=== PATIENT | female | born 1940 | race Caucasian/White ===

== ENCOUNTER 2023-02-01 11:26 | Outpatient (OUT) | payer MEDICARE, OTHER, SELFPAY ==
[2023-02-01 12:45] LABS: Anion Gap 13.8; Calcium 9.2 mg/dL (8.5-10.1); Carbon Dioxide 31.2 mmol/L (21.0-32.0); Chloride 103 mmol/L (98-107); Digoxin 0.8 ng/mL (0.9-2.0); Estimated GFR (African America 36 (>=60); Estimated GFR (Non-African Ame 29 (>=60); Sodium 144 mmol/L (136-145)
[2023-02-01 15:10] LABS: Glucose 35 mg/dL (74-106)
== END 2023-02-01 11:27 | disposition home or self-care (01) ==
LOC: LAB 11:30
PROVIDERS: PCP Internal Medicine; Visit Provider Internal Medicine Interventional Cardiology
DX: I50.32 Chronic diastolic (congestive) heart failure (principal)
CPT/HCPCS: 36415; 80048; 80162; 83880

== ENCOUNTER 2023-03-02 12:00 | Emergency (ER) | payer MEDICARE, OTHER, SELFPAY ==
[2023-03-02 12:04] VITALS: BP 125/92; PULSE 82; RESP 18; TEMP 36.3; O2SAT 98; BMI 30.7
--- NOTE | 2023-03-02 12:10 | XR_ITS ---
[facility] [id number] Patient Name: KATHY VILLEGAS MRN: [id number] date: 1940 Sex: F Assigned Patient Location: ER Current Patient Location: ER Accession/Order Number: [id number] Exam Date: 03/02/2023 12:15 Report Date: 03/02/2023 13:06 At the request of: GONZÁLEZ EVANS Procedure: XR lumbar spine 2-3V EXAMINATION: XR thoracic spine 2V, XR lumbar spine 2-3V HISTORY: fell onto hutch COMPARISON: No relevant comparison available. FINDINGS: BONES: Normal alignment of the thoracic and lumbar vertebral bodies with no spondylolisthesis. Anterior wedge compression fractures of multiple thoracic vertebral bodies, 10-20%, age indeterminate. Moderate degenerative spondylosis. Moderate to severe facet osteoarthropathy DISC SPACES: Normal. No significant disc height narrowing, subluxation, or endplate abnormality. PARASPINOUS: Negative. No paraspinous abnormality is seen. OTHER: Extensive atherosclerosis XR/XR lumbar spine 2-3V IMPRESSION: Moderate diffuse degenerative changes Multilevel mild thoracic anterior wedge compression fractures, age indeterminate Electronically authenticated by: MEENA HAWKINS Date: 03/02/2023 13:06
--- NOTE | 2023-03-02 12:10 | XR_ITS ---
[facility] [id number] Patient Name: KATHY VILLEGAS MRN: [id number] date: 1940 Sex: F Assigned Patient Location: ER Current Patient Location: ER Accession/Order Number: [id number] Exam Date: 03/02/2023 12:15 Report Date: 03/02/2023 13:06 At the request of: GONZÁLEZ EVANS Procedure: XR thoracic spine 2V EXAMINATION: XR thoracic spine 2V, XR lumbar spine 2-3V HISTORY: fell onto hutch COMPARISON: No relevant comparison available. FINDINGS: BONES: Normal alignment of the thoracic and lumbar vertebral bodies with no spondylolisthesis. Anterior wedge compression fractures of multiple thoracic vertebral bodies, 10-20%, age indeterminate. Moderate degenerative spondylosis. Moderate to severe facet osteoarthropathy DISC SPACES: Normal. No significant disc height narrowing, subluxation, or endplate abnormality. PARASPINOUS: Negative. No paraspinous abnormality is seen. OTHER: Extensive atherosclerosis XR/XR thoracic spine 2V IMPRESSION: Moderate diffuse degenerative changes Multilevel mild thoracic anterior wedge compression fractures, age indeterminate Electronically authenticated by: MEENA HAWKINS Date: 03/02/2023 13:06
--- NOTE | 2023-03-02 14:13 | ED.GENADUL1 ---
Documented by User: ZOEY Stevenson 03/02/23 17:00 HPI - General Adult General Chief complaint: Fall Stated complaint: FELL LAST NIGHT/IN PAIN Time Seen by Provider: 03/02/23 13:35 Source: patient Mode of arrival: Wheelchair Limitations: no limitations History of Present Illness HPI narrative: patient is a 83-year-old female presents to the Emergency Room with concerns of back pain. Patient states she was in her bedroom last night and fell back striking her Hutch, then slipping down to the floor. She denies hitting her head or neck. Denies loss of consciousness. lives with her son, who is also currently hospitalized of heart tones. Patient denies any anterior chest pain. Pain is worse with movement walking and for flexion. She denies any radicular symptoms in her lower legs or abdomen. Patient denies any dysuria. States she felt fine prior to her injury. She reports a remote history of back fractures in the 1970s. She denies any bowel or bladder continence or saddle paresthesias. Patient appears moderately uncomfortable in the room. Radiation: Reports back Related Data Allergies Allergy/AdvReac Type Severity Reaction Status Date / Time codeine Allergy Intermediate Verified 03/02/23 12:08 Penicillins Allergy Intermediate Verified 03/02/23 12:08 Review of Systems ROS Constitutional Denies: fever or chills Ears, nose, mouth, and throat Denies: throat pain or neck pain Cardiovascular Denies: chest pain or palpitations Respiratory Denies: shortness of breath or cough Gastrointestinal Denies: abdominal pain or nausea Genitourinary Denies: painful urination Musculoskeletal Reports: back pain; Denies: extremity pain or muscle cramps Neurological Denies: headache Psychiatric Denies: anxiety or mood swings Hematologic/Lymphatic Denies: easy bruising Allergic/Immunologic Denies: hives [facility] Medical History (Updated 03/02/23 @ 16:59 by ZOEY Stevenson) Exam Narrative Exam Narrative: Vital Signs reviewed and nurse's notes reviewed. The patient is not hypoxic. General: Alert,patient appears uncomfortable worse with moving and position change in the room. Skin: warm, intact, no pallor noted, no rash, no external evidence of trauma with inspection of skin, no zoster-like rash. Head: Normocephalic, atraumatic Eye: Normal conjunctiva, EOMI Cardiac: irregularly irregular, history of atrial fibrillation Respiratory: No acute distress, chest wall is nontender. Abdomen: Normal bowel sounds, soft, nontender, no masses detected. No rebound, guarding, or rigidity noted. No midline pulsatile mass.no splenic or hepatic tenderness Back: inspection of the back shows no obvious deformity, no swelling, no ecchymosis, contusion, abrasion, swelling, erythema, fluctuance or induration. slight scoliotic curvature and kyphosis appreciated. No step offs or crepitus noted. No CVA tenderness noted bilaterally.positive tenderness mid thoracic and lower lumbar back, pain to sacrum and coccyx also noted along SI joint. There is no pain with range of motion of the bilateral hips. Straight leg raise. Tenderness noted to thoracic and lumbar spine. . Straight leg raise on left is negative. Straight leg raise on right is negative. Musculoskeletal: No deformity noted to bilateral lower extremities. no cyanosis or mottling noted. normal pulses at DP and PT 2+ bilaterally and symmetrically. Normal 5/5 strength at ankles with dorsiflexion and plantar flexion. Patient is able to ambulate. Normal sensation noted to the bilateral lower extremities. Neurological: alert and oriented x4, normal sensory and motor observed. DTR 2+ at patellar and achilles bilaterally. Psychiatric: Cooperative Constitutional Vital Signs, click to edit/add: Last Vital Signs Temp 97.4 F L 03/02/23 12:04 Pulse 82 03/02/23 12:04 Resp 18 03/02/23 12:04 BP 125/92 H 03/02/23 12:04 Pulse Ox 98 03/02/23 12:04 O2 Del Method Room Air 03/02/23 12:04 Course Vital Signs Vital signs: Vital Signs Temperature 97.4 F L 03/02/23 12:04 Pulse Rate 82 03/02/23 12:04 Respiratory Rate 18 03/02/23 12:04 Blood Pressure 125/92 H 03/02/23 12:04 Pulse Oximetry 98 03/02/23 12:04 Oxygen Delivery Method Room Air 03/02/23 12:04 Temperature 97.4 F L 03/02/23 12:04 Pulse Rate 82 03/02/23 12:04 Respiratory Rate 18 03/02/23 12:04 Blood Pressure 125/92 H 03/02/23 12:04 Pulse Oximetry 98 03/02/23 12:04 Oxygen Delivery Method Room Air 03/02/23 12:04 Medical Decision Making MDM Narrative Medical decision making narrative: patient had x-rays performed of the thoracic spine and lumbar spine from the waiting room. Unable to differentiate acute versus chronic rest Fractures. Given the patient's severity of pain recommend CT of the thoracic spine and CT of the abdomen and pelvis. Patient believe she did land the ground for some time after her fall and baseline labs will be checked. Patient medicated with Percocet for pain along with IM Norflex and Toradol. She has not had any signs or symptoms of a closed head injury and there is no external evidence of trauma with patient denying headd injury with episode. Notable spasms in the lower spine lumbar region that affect her range of motion secondary to pain, patient's daughter present at bedside. patient CT of thoracic spine noted for mass and lung, CT chest without contrast ordered given patient's kidney function. We discussed CT of the abdomen and pelvis. Patient has concerns for an L1 compression fracture. After medication patient much improved and resting in bed. We discussed a prescription of Bloomingrose pending follow-up with her family doctor/orthopedics. Recommend no lifting pushing , stooping or bending. We discussed her fracture may be acute or chronic. We discussed need to take fiber or MiraLAX with her narcotic and to take least effective dose for pain. Patient verbally agreeable and given sixteen tablets of Bloomingrose on written prescription paper. Patient daughter at bedside verbally agreeable to discharge plan and follow-up as discussed. The patient is to followup with primary care physician/ ortho in next 2-3 days or to return to the emergency department should any of the signs or symptoms worsen or new symptoms develop. Patient had questions answered. The patient agrees with the following Diagnosis and Treatment plan and the patient will be discharged home. Lab Data Labs: Lab Results 03/02/23 Range/Units 14:25 WBC 8.5 (4.0-11.0) 10^3/uL RBC 4.13 L (4.20-5.40) 10^6/uL Hgb 12.2 (12.0-16.0) g/dL Hct 39.4 (36.0-48.0) % MCV 95.4 (81.0-99.0) fL MCH 29.5 (26.7-34.0) pg MCHC 31.0 (29.9-35.2) g/dL RDW 15.5 H (11.0-15.0) % Plt Count 236 (150-450) 10^3/uL MPV 9.7 (9.5-13.5) fL Neut % (Auto) 80.5 H (43.0-75.0) % Lymph % (Auto) 7.6 L (20.5-60.0) % [place] % (Auto) 9.1 (1.7-12.0) % Eos % (Auto) 2.1 (0.9-7.0) % Baso % (Auto) 0.5 (0.2-2.0) % Neut # (Auto) 6.9 H (1.4-6.5) 10^3/uL Lymph # (Auto) 0.7 L (1.2-3.8) 10^3/uL [place] # (Auto) 0.8 (0.3-0.8) 10^3/uL Eos # (Auto) 0.2 (0.0-0.7) 10^3/uL Baso # (Auto) 0.0 (0.0-0.1) 10^3/uL Abs Immat Gran (auto) 0.02 (0.00-0.03) 10^3/uL Imm/Tot Granulo (auto) 0.2 (0.0-0.5) % Sodium 135 L (136-145) mmol/L Potassium 3.8 (3.5-5.1) mmol/L Chloride 98 (98-107) mmol/L Carbon Dioxide 31.7 (21.0-32.0) mmol/L Anion Gap 9.1 BUN 39.0 H (7.0-18.0) mg/dL Creatinine 1.68 H (0.55-1.02) mg/dL Est GFR ( Amer) 35 L (>=60) Est GFR (Non-Af Amer) 29 L (>=60) BUN/Creatinine Ratio 23.2 Glucose 117 H (74-106) mg/dL Calcium 9.6 (8.5-10.1) mg/dL Myoglobin 132 H (9-82) ng/mL Troponin I High Sens 17.2 (4.0-51.3) pg/mL Imaging Data Chest x-ray: Radiologist's impression: Procedure: XR thoracic spine 2V EXAMINATION: XR thoracic spine 2V, XR lumbar spine 2-3V HISTORY: fell onto hutch COMPARISON: No relevant comparison available. FINDINGS: BONES: Normal alignment of the thoracic and lumbar vertebral bodies with no spondylolisthesis. Anterior wedge compression fractures of multiple thoracic vertebral bodies, 10-20%, age indeterminate. Moderate degenerative spondylosis. Moderate to severe facet osteoarthropathy DISC SPACES: Normal. No significant disc height narrowing, subluxation, or endplate abnormality. PARASPINOUS: Negative. No paraspinous abnormality is seen. OTHER: Extensive atherosclerosis IMPRESSION: Moderate diffuse degenerative changes Multilevel mild thoracic anterior wedge compression fractures, age indeterminate Electronically authenticated by: MEENA HAWKINS Date: 03/02/2023 13:06 Procedure: XR lumbar spine 2-3V EXAMINATION: XR thoracic spine 2V, XR lumbar spine 2-3V HISTORY: fell onto hutch COMPARISON: No relevant comparison available. FINDINGS: BONES: Normal alignment of the thoracic and lumbar vertebral bodies with no spondylolisthesis. Anterior wedge compression fractures of multiple thoracic vertebral bodies, 10-20%, age indeterminate. Moderate degenerative spondylosis. Moderate to severe facet osteoarthropathy DISC SPACES: Normal. No significant disc height narrowing, subluxation, or endplate abnormality. PARASPINOUS: Negative. No paraspinous abnormality is seen. OTHER: Extensive atherosclerosis IMPRESSION: Moderate diffuse degenerative changes Multilevel mild thoracic anterior wedge compression fractures, age indeterminate Electronically authenticated by: MEENA HAWKINS Date: 03/02/2023 13:06 Procedure: CT chest wo con EXAMINATION: CT abdomen pelvis wo con, CT chest wo con, CT thoracic spine wo con, 03/02/2023 2:56 PM EDT HISTORY: pain pelvis and lumbar spine COMPARISON: Relevant priors reviewed including CT of the chest 10/06/2022 TECHNIQUE: 1. CT of the chest without IV contrast. 2. CT abdomen pelvis without IV contrast 3. CT thoracic spine without IV contrast Dose reduction techniques were achieved by using automated exposure control and/or adjustment of mA and/or kV according to patient size and/or use of iterative reconstruction technique. FINDINGS: Noncontrasted nature of the exam limits evaluation of the vascular structures and solid organs. CHEST: Medical devices: Cardiac loop recorder within the left anterior chest wall. Thyroid: Diminutive. Grossly unchanged 1.3 cm hypoattenuating nodule in the left inferior gland. Vasculature: Similar dilatation of the main pulmonary artery measuring up to 4.1 cm in diameter. Aorta is of normal caliber, aortic atherosclerotic calcification Heart: Enlarged. Multivessel atherosclerotic calcification of the coronary arteries. Suspect artificial aortic valve. No pericardial effusion. Mediastinum: Normal. Airways: Central airways are patent. Lung parenchyma and pleura: Trace right pleural effusion, decreased since CT comparison 10/06/2022; similar associated pleural thickening. Right lower lobe subpleural masslike consolidation is not significant changed, potentially round atelectasis. Unchanged 2.4 x 1.4 cm area of subpleural nodularity in the left lower lobe. Similar background moderate emphysema. Lymph nodes: Several prominent mediastinal lymph nodes, the majority of which have slightly decreased in size since CT comparison 10/06/2022, example includes a 1.4 x 1.0 cm left lower paratracheal/precarinal node (image 31 series 3), previously 2.0 x 1.2 cm. Prominent 1.4 x 1.0 cm right upper paratracheal node (image 15 series 3) is unchanged. No new or increasing thoracic adenopathy. Chest wall: No acute findings. Musculoskeletal: Procedure change from median sternotomy. No acute findings. Dedicated CT of the thoracic spine shows normal spinal alignment without significant edgar or retrolisthesis. Thoracic vertebral body heights are maintained without fracture. Age-indeterminate fracture of the L1 superior endplate with minimal vertebral body height loss. Multilevel intervertebral disc height loss and degenerative endplate change. Posterior disc osteophyte complex at T7-T8 contributes continues to likely mild narrowing of the bony spinal canal at this level; no severe narrowing. ABDOMEN/PELVIS: Liver: Normal. Biliary tree: Smooth central intra and extra hepatic biliary prominence with tapering at ampulla likely relates to postcholecystectomy status and patient's age. Gallbladder: Cholecystectomy Spleen: Normal. Pancreas: Parenchymal atrophy. No abnormal ductal dilatation. Adrenal glands: Normal. Kidneys and ureters: Normal. Bladder: Grossly unremarkable for the degree of underdistention. Reproductive organs: Hysterectomy. No suspicious adnexal mass. Gastrointestinal tract: No abnormal bowel dilatation. Colonic diverticulosis without findings of acute diverticulitis. The appendix is not definitively visualized. No finding in the right lower quadrant to suggest acute appendicitis. Peritoneum/retroperitoneum: No free fluid or gas. Minimal wispy soft tissue and few benign calcifications in the right retroperitoneal fat, new since 2018, potentially relates to remote/since resolved retroperitoneal hematoma or collection. Vasculature: Advanced atherosclerosis without aneurysm. Lymph nodes: Normal. Abdominal wall: Procedure change. Musculoskeletal: Transitional lumbosacral anatomy with 6 nonrib-bearing lumbar-type vertebral bodies; for the sake of this dictation, the most superior nonrib-bearing vertebral body is labeled L1. Age-indeterminate compression deformity about the L1 superior endplate as above. Degenerative change of the spine. IMPRESSION: Noncontrasted CT examinations of the chest, abdomen and pelvis, and thoracic spine 1. Trace right pleural effusion, decreased since CT comparison 10/06/2022; similar associated nonspecific pleural thickening. 2. Unchanged masslike right lower lobe consolidation, and nonspecific 2.4 cm nodular opacity in the left lower lobe. Right lower lobe opacity potentially relates to round atelectasis; superimposed infectious/inflammatory change would be difficult to exclude. 3. No acute findings within the abdomen and pelvis within limitations of noncontrast technique. 4. Age indeterminate compression fracture of the L1 superior endplate with minimal vertebral body height loss. Transitional lumbosacral anatomy; for the sake of this dictation the most superior nonrib-bearing vertebral body is labeled L1. 5. Grossly similar dilatation of the main pulmonary artery suggesting elevated pulmonary arterial pressures. 6. Nonspecific prominent mediastinal lymph nodes, the majority of which have decreased in size since previous CT 10/06/2021, with few others appearing unchanged. Electronically authenticated by: BRIGHT HARDY Date: 03/02/2023 16:01 ECG Data Attestation: I personally reviewed and interpreted this ECG as follows: Interpretation: EKG noted for atrial fibrillation any [address] elevation. Mild flattening of T waves in V1 and V2. Discharge Plan Discharge Chief Complaint: Fall Clinical Impression: Acute thoracic back pain, Closed compression fracture of L1 vertebra, Lung mass Patient Disposition: Home, Self-Care Time of Disposition Decision: 16:57 Condition: Good Additional Instructions: no bending stooping or heavy lifting. Contact orthopedics Sunday for follow-up, recommend follow-up family doctor to discuss lung mass. Stand Alone Forms: Portal Instructions Referrals: JHONATAN LUCIA [Primary Care Provider] - 1 week Stalin Luna MD [Physician] - As soon as possible Discharge Date/Time: 03/02/23 17:13 Documented by User: Shala Nieves MD 03/02/23 17:45 HPI - General Adult General Chief complaint: Fall Stated complaint: FELL LAST NIGHT/IN PAIN Time Seen by Provider: 03/02/23 13:35 Related Data Allergies Allergy/AdvReac Type Severity Reaction Status Date / Time codeine Allergy Intermediate Verified 03/02/23 12:08 Penicillins Allergy Intermediate Verified 03/02/23 12:08 [facility] Medical History (Updated 03/02/23 @ 16:59 by ZOEY Stevenson) Exam Constitutional Vital Signs, click to edit/add: Last Vital Signs Temp 97.4 F L 03/02/23 12:04 Pulse 82 03/02/23 12:04 Resp 18 03/02/23 12:04 BP 125/92 H 03/02/23 12:04 Pulse Ox 98 03/02/23 12:04 O2 Del Method Room Air 03/02/23 12:04 Course Vital Signs Vital signs: Vital Signs Temperature 97.4 F L 03/02/23 12:04 Pulse Rate 82 03/02/23 12:04 Respiratory Rate 18 03/02/23 12:04 Blood Pressure 125/92 H 03/02/23 12:04 Pulse Oximetry 98 03/02/23 12:04 Oxygen Delivery Method Room Air 03/02/23 12:04 Temperature 97.4 F L 03/02/23 12:04 Pulse Rate 82 03/02/23 12:04 Respiratory Rate 18 03/02/23 12:04 Blood Pressure 125/92 H 03/02/23 12:04 Pulse Oximetry 98 03/02/23 12:04 Oxygen Delivery Method Room Air 03/02/23 12:04 Medical Decision Making MDM Narrative Medical decision making narrative: patient had x-rays performed of the thoracic spine and lumbar spine from the waiting room. Unable to differentiate acute versus chronic rest Fractures. Given the patient's severity of pain recommend CT of the thoracic spine and CT of the abdomen and pelvis. Patient believe she did land the ground for some time after her fall and baseline labs will be checked. Patient medicated with Percocet for pain along with IM Norflex and Toradol. She has not had any signs or symptoms of a closed head injury and there is no external evidence of trauma with patient denying head injury with episode. Notable spasms in the lower spine lumbar region that affect her range of motion secondary to pain, patient's daughter present at bedside. patient CT of thoracic spine noted for mass and lung, CT chest without contrast ordered given patient's kidney function. We discussed CT of the abdomen and pelvis. Patient has concerns for an L1 compression fracture. After medication patient much improved and resting in bed. We discussed a prescription of Bloomingrose pending follow-up with her family doctor/orthopedics. Recommend no lifting pushing , stooping or bending. We discussed her fracture may be acute or chronic. We discussed need to take fiber or MiraLAX with her narcotic and to take least effective dose for pain. Patient verbally agreeable and given sixteen tablets of Bloomingrose on written prescription paper. Patient daughter at bedside verbally agreeable to discharge plan and follow-up as discussed. The patient is to followup with primary care physician/ ortho in next 2-3 days or to return to the emergency department should any of the signs or symptoms worsen or new symptoms develop. Patient had questions answered. The patient agrees with the following Diagnosis and Treatment plan and the patient will be discharged home. Attending physician attestation I I have reviewed the mid-level documentation, agree with the documentation, medical decision making and treatment plan as outlined by the mid-level provider. Lab Data Labs: Lab Results 03/02/23 Range/Units 14:25 WBC 8.5 (4.0-11.0) 10^3/uL RBC 4.13 L (4.20-5.40) 10^6/uL Hgb 12.2 (12.0-16.0) g/dL Hct 39.4 (36.0-48.0) % MCV 95.4 (81.0-99.0) fL MCH 29.5 (26.7-34.0) pg MCHC 31.0 (29.9-35.2) g/dL RDW 15.5 H (11.0-15.0) % Plt Count 236 (150-450) 10^3/uL MPV 9.7 (9.5-13.5) fL Neut % (Auto) 80.5 H (43.0-75.0) % Lymph % (Auto) 7.6 L (20.5-60.0) % [place] % (Auto) 9.1 (1.7-12.0) % Eos % (Auto) 2.1 (0.9-7.0) % Baso % (Auto) 0.5 (0.2-2.0) % Neut # (Auto) 6.9 H (1.4-6.5) 10^3/uL Lymph # (Auto) 0.7 L (1.2-3.8) 10^3/uL [place] # (Auto) 0.8 (0.3-0.8) 10^3/uL Eos # (Auto) 0.2 (0.0-0.7) 10^3/uL Baso # (Auto) 0.0 (0.0-0.1) 10^3/uL Abs Immat Gran (auto) 0.02 (0.00-0.03) 10^3/uL Imm/Tot Granulo (auto) 0.2 (0.0-0.5) % Sodium 135 L (136-145) mmol/L Potassium 3.8 (3.5-5.1) mmol/L Chloride 98 (98-107) mmol/L Carbon Dioxide 31.7 (21.0-32.0) mmol/L Anion Gap 9.1 BUN 39.0 H (7.0-18.0) mg/dL Creatinine 1.68 H (0.55-1.02) mg/dL Est GFR ( Amer) 35 L (>=60) Est GFR (Non-Af Amer) 29 L (>=60) BUN/Creatinine Ratio 23.2 Glucose 117 H (74-106) mg/dL Calcium 9.6 (8.5-10.1) mg/dL Myoglobin 132 H (9-82) ng/mL Troponin I High Sens 17.2 (4.0-51.3) pg/mL Discharge Plan Discharge Chief Complaint: Fall Clinical Impression: Acute thoracic back pain, Closed compression fracture of L1 vertebra, Lung mass Patient Disposition: Home, Self-Care Time of Disposition Decision: 16:57 Condition: Good Additional Instructions: no bending stooping or heavy lifting. Contact orthopedics Sunday for follow-up, recommend follow-up family doctor to discuss lung mass. Stand Alone Forms: Portal Instructions Referrals: JHONATAN LUCIA [Primary Care Provider] - 1 week Stalin Luna MD [Physician] - As soon as possible Discharge Date/Time: 03/02/23 17:13
--- NOTE | 2023-03-02 14:15 | ECG_ITS ---
The [facility] Test Date: 2023-03-02 Pat Name: KATHY VILLEGAS Department: Room: - Gender: Female [employer]: : [phone] Requested By: JHONATAN LUCIA Order Number: [id number] Reading MD: MIKE HUGO Measurements Intervals [place] Rate: 94 P: -[id number] [place]: -35140 QRS: 72 QRSD: 100 T: 166 QT: 360 QTc: 412 Interpretive Statements [address]/[place] abnormality, possible Inferolateral ischemia or digitalis effect 9150 abnormal ECG No previous ECG available for comparison Electronically Signed On 03-04-2023 18:05:39 EDT by MIKE HUGO
[2023-03-02] MEDS: KETOROLAC TROMETHAMINE 60 MG/2 ML VIAL IM (14:18)
[2023-03-02] MEDS: ORPHENADRINE 60 MG/ 2 ML VIAL IM (14:19)
[2023-03-02 14:33] LABS: Basophils Percent Auto 0.5 % (0.2-2.0); Eosinophils Absolute Auto 0.2 10^3/uL (0.0-0.7); Eosinophils Percent Auto 2.1 % (0.9-7.0); Hematocrit 39.4 % (36.0-48.0); Hemoglobin 12.2 g/dL (12.0-16.0); Immature Granulocytes Abs Auto 0.02 10^3/uL (0.00-0.03); Immature Granulocytes Pct Auto 0.2 % (0.0-0.5); Lymphocytes Absolute Auto 0.7 10^3/uL (1.2-3.8); Lymphocytes Percent Auto 7.6 % (20.5-60.0); Mean Corpuscular Hemoglobin 29.5 pg (26.7-34.0); Mean Corpuscular Volume 95.4 fL (81.0-99.0); Mean Platelet Volume 9.7 fL (9.5-13.5); Monocytes Absolute Auto 0.8 10^3/uL (0.3-0.8); Monocytes Percent Auto 9.1 % (1.7-12.0); Neutrophils Absolute Auto 6.9 10^3/uL (1.4-6.5); Neutrophils Percent Auto 80.5 % (43.0-75.0); Platelet Count 236 10^3/uL (150-450); Red Blood Count 4.13 10^6/uL (4.20-5.40); Red Cell Distribution Width 15.5 % (11.0-15.0); White Blood Count 8.5 10^3/uL (4.0-11.0)
[2023-03-02 14:55] LABS: Anion Gap 9.1; BUN Creatinine Ratio 23.2; Calcium 9.6 mg/dL (8.5-10.1); Carbon Dioxide 31.7 mmol/L (21.0-32.0); Chloride 98 mmol/L (98-107); Estimated GFR (African America 35 (>=60); Estimated GFR (Non-African Ame 29 (>=60); Glucose 117 mg/dL (74-106); Myoglobin 132 ng/mL (9-82); Potassium 3.8 mmol/L (3.5-5.1); Sodium 135 mmol/L (136-145); Troponin I High Sensitivity 17.2 pg/mL (4.0-51.3)
[2023-03-02 14:58] LABS: Scan Results NEGATIVE
--- NOTE | 2023-03-02 15:07 | CT_ITS ---
[address] [address] Patient Name: KATHY VILLEGAS MRN: [id number] date: 1940 Sex: F Assigned Patient Location: ER Current Patient Location: ER Accession/Order Number: [id number] Exam Date: 03/02/2023 14:56 Report Date: 03/02/2023 16:01 At the request of: ISAI SAENZ Procedure: CT abdomen pelvis wo con EXAMINATION: CT abdomen pelvis wo con, CT chest wo con, CT thoracic spine wo con, 03/02/2023 2:56 PM EDT HISTORY: pain pelvis and lumbar spine COMPARISON: Relevant priors reviewed including CT of the chest 10/06/2022 TECHNIQUE: 1. CT of the chest without IV contrast. 2. CT abdomen pelvis without IV contrast 3. CT thoracic spine without IV contrast Dose reduction techniques were achieved by using automated exposure control and/or adjustment of mA and/or kV according to patient size and/or use of iterative reconstruction technique. FINDINGS: Noncontrasted nature of the exam limits evaluation of the vascular structures and solid organs. CHEST: Medical devices: Cardiac loop recorder within the left anterior chest wall. Thyroid: Diminutive. Grossly unchanged 1.3 cm hypoattenuating nodule in the left inferior gland. Vasculature: Similar dilatation of the main pulmonary artery measuring up to 4.1 cm in diameter. Aorta is of normal caliber, aortic atherosclerotic calcification Heart: Enlarged. Multivessel atherosclerotic calcification of the coronary arteries. Suspect artificial aortic valve. No pericardial effusion. Mediastinum: Normal. Airways: Central airways are patent. Lung parenchyma and pleura: Trace right pleural effusion, decreased since CT comparison 10/06/2022; similar associated pleural thickening. Right lower lobe subpleural masslike consolidation is not significant changed, potentially round atelectasis. Unchanged 2.4 x 1.4 cm area of subpleural nodularity in the left lower lobe. Similar background moderate emphysema. Lymph nodes: Several prominent mediastinal lymph nodes, the majority of which have slightly decreased in size since CT comparison 10/06/2022, example includes a 1.4 x 1.0 cm left lower paratracheal/precarinal node (image 31 series 3), previously 2.0 x 1.2 cm. Prominent 1.4 x 1.0 cm right upper paratracheal node (image 15 series 3) is unchanged. No new or increasing thoracic adenopathy. Chest wall: No acute findings. Musculoskeletal: Procedure change from median sternotomy. No acute findings. Dedicated CT of the thoracic spine shows normal spinal alignment without significant edgar or retrolisthesis. Thoracic vertebral body heights are maintained without fracture. Age-indeterminate fracture of the L1 superior endplate with minimal vertebral body height loss. Multilevel intervertebral disc height loss and degenerative endplate change. Posterior disc osteophyte complex at T7-T8 contributes continues to likely mild narrowing of the bony spinal canal at this level; no severe narrowing. ABDOMEN/PELVIS: Liver: Normal. Biliary tree: Smooth central intra and extra hepatic biliary prominence with tapering at ampulla likely relates to postcholecystectomy status and patient's age. Gallbladder: Cholecystectomy Spleen: Normal. Pancreas: Parenchymal atrophy. No abnormal ductal dilatation. Adrenal glands: Normal. Kidneys and ureters: Normal. Bladder: Grossly unremarkable for the degree of underdistention. Reproductive organs: Hysterectomy. No suspicious adnexal mass. Gastrointestinal tract: No abnormal bowel dilatation. Colonic diverticulosis without findings of acute diverticulitis. The appendix is not definitively visualized. No finding in the right lower quadrant to suggest acute appendicitis. Peritoneum/retroperitoneum: No free fluid or gas. Minimal wispy soft tissue and few benign calcifications in the right retroperitoneal fat, new since 2018, potentially relates to remote/since resolved retroperitoneal hematoma or collection. Vasculature: Advanced atherosclerosis without aneurysm. Lymph nodes: Normal. Abdominal wall: Procedure change. Musculoskeletal: Transitional lumbosacral anatomy with 6 nonrib-bearing lumbar-type vertebral bodies; for the sake of this dictation, the most superior nonrib-bearing vertebral body is labeled L1. Age-indeterminate compression deformity about the L1 superior endplate as above. Degenerative change of the spine. CT/CT abdomen pelvis wo con IMPRESSION: Noncontrasted CT examinations of the chest, abdomen and pelvis, and thoracic spine 1. Trace right pleural effusion, decreased since CT comparison 10/06/2022; similar associated nonspecific pleural thickening. 2. Unchanged masslike right lower lobe consolidation, and nonspecific 2.4 cm nodular opacity in the left lower lobe. Right lower lobe opacity potentially relates to round atelectasis; superimposed infectious/inflammatory change would be difficult to exclude. 3. No acute findings within the abdomen and pelvis within limitations of noncontrast technique. 4. Age indeterminate compression fracture of the L1 superior endplate with minimal vertebral body height loss. Transitional lumbosacral anatomy; for the sake of this dictation the most superior nonrib-bearing vertebral body is labeled L1. 5. Grossly similar dilatation of the main pulmonary artery suggesting elevated pulmonary arterial pressures. 6. Nonspecific prominent mediastinal lymph nodes, the majority of which have decreased in size since previous CT 10/06/2021, with few others appearing unchanged. Electronically authenticated by: BRIGHT HARDY Date: 03/02/2023 16:01
--- NOTE | 2023-03-02 15:07 | CT_ITS ---
[address] [address] Patient Name: KATHY VILLEGAS MRN: [id number] date: 1940 Sex: F Assigned Patient Location: ER Current Patient Location: ER Accession/Order Number: [id number] Exam Date: 03/02/2023 14:56 Report Date: 03/02/2023 16:01 At the request of: ISAI SAENZ Procedure: CT chest wo con EXAMINATION: CT abdomen pelvis wo con, CT chest wo con, CT thoracic spine wo con, 03/02/2023 2:56 PM EDT HISTORY: pain pelvis and lumbar spine COMPARISON: Relevant priors reviewed including CT of the chest 10/06/2022 TECHNIQUE: 1. CT of the chest without IV contrast. 2. CT abdomen pelvis without IV contrast 3. CT thoracic spine without IV contrast Dose reduction techniques were achieved by using automated exposure control and/or adjustment of mA and/or kV according to patient size and/or use of iterative reconstruction technique. FINDINGS: Noncontrasted nature of the exam limits evaluation of the vascular structures and solid organs. CHEST: Medical devices: Cardiac loop recorder within the left anterior chest wall. Thyroid: Diminutive. Grossly unchanged 1.3 cm hypoattenuating nodule in the left inferior gland. Vasculature: Similar dilatation of the main pulmonary artery measuring up to 4.1 cm in diameter. Aorta is of normal caliber, aortic atherosclerotic calcification Heart: Enlarged. Multivessel atherosclerotic calcification of the coronary arteries. Suspect artificial aortic valve. No pericardial effusion. Mediastinum: Normal. Airways: Central airways are patent. Lung parenchyma and pleura: Trace right pleural effusion, decreased since CT comparison 10/06/2022; similar associated pleural thickening. Right lower lobe subpleural masslike consolidation is not significant changed, potentially round atelectasis. Unchanged 2.4 x 1.4 cm area of subpleural nodularity in the left lower lobe. Similar background moderate emphysema. Lymph nodes: Several prominent mediastinal lymph nodes, the majority of which have slightly decreased in size since CT comparison 10/06/2022, example includes a 1.4 x 1.0 cm left lower paratracheal/precarinal node (image 31 series 3), previously 2.0 x 1.2 cm. Prominent 1.4 x 1.0 cm right upper paratracheal node (image 15 series 3) is unchanged. No new or increasing thoracic adenopathy. Chest wall: No acute findings. Musculoskeletal: Procedure change from median sternotomy. No acute findings. Dedicated CT of the thoracic spine shows normal spinal alignment without significant edgar or retrolisthesis. Thoracic vertebral body heights are maintained without fracture. Age-indeterminate fracture of the L1 superior endplate with minimal vertebral body height loss. Multilevel intervertebral disc height loss and degenerative endplate change. Posterior disc osteophyte complex at T7-T8 contributes continues to likely mild narrowing of the bony spinal canal at this level; no severe narrowing. ABDOMEN/PELVIS: Liver: Normal. Biliary tree: Smooth central intra and extra hepatic biliary prominence with tapering at ampulla likely relates to postcholecystectomy status and patient's age. Gallbladder: Cholecystectomy Spleen: Normal. Pancreas: Parenchymal atrophy. No abnormal ductal dilatation. Adrenal glands: Normal. Kidneys and ureters: Normal. Bladder: Grossly unremarkable for the degree of underdistention. Reproductive organs: Hysterectomy. No suspicious adnexal mass. Gastrointestinal tract: No abnormal bowel dilatation. Colonic diverticulosis without findings of acute diverticulitis. The appendix is not definitively visualized. No finding in the right lower quadrant to suggest acute appendicitis. Peritoneum/retroperitoneum: No free fluid or gas. Minimal wispy soft tissue and few benign calcifications in the right retroperitoneal fat, new since 2018, potentially relates to remote/since resolved retroperitoneal hematoma or collection. Vasculature: Advanced atherosclerosis without aneurysm. Lymph nodes: Normal. Abdominal wall: Procedure change. Musculoskeletal: Transitional lumbosacral anatomy with 6 nonrib-bearing lumbar-type vertebral bodies; for the sake of this dictation, the most superior nonrib-bearing vertebral body is labeled L1. Age-indeterminate compression deformity about the L1 superior endplate as above. Degenerative change of the spine. CT/CT chest wo con IMPRESSION: Noncontrasted CT examinations of the chest, abdomen and pelvis, and thoracic spine 1. Trace right pleural effusion, decreased since CT comparison 10/06/2022; similar associated nonspecific pleural thickening. 2. Unchanged masslike right lower lobe consolidation, and nonspecific 2.4 cm nodular opacity in the left lower lobe. Right lower lobe opacity potentially relates to round atelectasis; superimposed infectious/inflammatory change would be difficult to exclude. 3. No acute findings within the abdomen and pelvis within limitations of noncontrast technique. 4. Age indeterminate compression fracture of the L1 superior endplate with minimal vertebral body height loss. Transitional lumbosacral anatomy; for the sake of this dictation the most superior nonrib-bearing vertebral body is labeled L1. 5. Grossly similar dilatation of the main pulmonary artery suggesting elevated pulmonary arterial pressures. 6. Nonspecific prominent mediastinal lymph nodes, the majority of which have decreased in size since previous CT 10/06/2021, with few others appearing unchanged. Electronically authenticated by: BRIGHT HARDY Date: 03/02/2023 16:01
--- NOTE | 2023-03-02 15:07 | CT_ITS ---
[address] [address] Patient Name: KATHY VILLEGAS MRN: [id number] date: 1940 Sex: F Assigned Patient Location: ER Current Patient Location: ER Accession/Order Number: [id number] Exam Date: 03/02/2023 14:56 Report Date: 03/02/2023 16:01 At the request of: ISAI SAENZ Procedure: CT thoracic spine wo con EXAMINATION: CT abdomen pelvis wo con, CT chest wo con, CT thoracic spine wo con, 03/02/2023 2:56 PM EDT HISTORY: pain pelvis and lumbar spine COMPARISON: Relevant priors reviewed including CT of the chest 10/06/2022 TECHNIQUE: 1. CT of the chest without IV contrast. 2. CT abdomen pelvis without IV contrast 3. CT thoracic spine without IV contrast Dose reduction techniques were achieved by using automated exposure control and/or adjustment of mA and/or kV according to patient size and/or use of iterative reconstruction technique. FINDINGS: Noncontrasted nature of the exam limits evaluation of the vascular structures and solid organs. CHEST: Medical devices: Cardiac loop recorder within the left anterior chest wall. Thyroid: Diminutive. Grossly unchanged 1.3 cm hypoattenuating nodule in the left inferior gland. Vasculature: Similar dilatation of the main pulmonary artery measuring up to 4.1 cm in diameter. Aorta is of normal caliber, aortic atherosclerotic calcification Heart: Enlarged. Multivessel atherosclerotic calcification of the coronary arteries. Suspect artificial aortic valve. No pericardial effusion. Mediastinum: Normal. Airways: Central airways are patent. Lung parenchyma and pleura: Trace right pleural effusion, decreased since CT comparison 10/06/2022; similar associated pleural thickening. Right lower lobe subpleural masslike consolidation is not significant changed, potentially round atelectasis. Unchanged 2.4 x 1.4 cm area of subpleural nodularity in the left lower lobe. Similar background moderate emphysema. Lymph nodes: Several prominent mediastinal lymph nodes, the majority of which have slightly decreased in size since CT comparison 10/06/2022, example includes a 1.4 x 1.0 cm left lower paratracheal/precarinal node (image 31 series 3), previously 2.0 x 1.2 cm. Prominent 1.4 x 1.0 cm right upper paratracheal node (image 15 series 3) is unchanged. No new or increasing thoracic adenopathy. Chest wall: No acute findings. Musculoskeletal: Procedure change from median sternotomy. No acute findings. Dedicated CT of the thoracic spine shows normal spinal alignment without significant edgar or retrolisthesis. Thoracic vertebral body heights are maintained without fracture. Age-indeterminate fracture of the L1 superior endplate with minimal vertebral body height loss. Multilevel intervertebral disc height loss and degenerative endplate change. Posterior disc osteophyte complex at T7-T8 contributes continues to likely mild narrowing of the bony spinal canal at this level; no severe narrowing. ABDOMEN/PELVIS: Liver: Normal. Biliary tree: Smooth central intra and extra hepatic biliary prominence with tapering at ampulla likely relates to postcholecystectomy status and patient's age. Gallbladder: Cholecystectomy Spleen: Normal. Pancreas: Parenchymal atrophy. No abnormal ductal dilatation. Adrenal glands: Normal. Kidneys and ureters: Normal. Bladder: Grossly unremarkable for the degree of underdistention. Reproductive organs: Hysterectomy. No suspicious adnexal mass. Gastrointestinal tract: No abnormal bowel dilatation. Colonic diverticulosis without findings of acute diverticulitis. The appendix is not definitively visualized. No finding in the right lower quadrant to suggest acute appendicitis. Peritoneum/retroperitoneum: No free fluid or gas. Minimal wispy soft tissue and few benign calcifications in the right retroperitoneal fat, new since 2018, potentially relates to remote/since resolved retroperitoneal hematoma or collection. Vasculature: Advanced atherosclerosis without aneurysm. Lymph nodes: Normal. Abdominal wall: Procedure change. Musculoskeletal: Transitional lumbosacral anatomy with 6 nonrib-bearing lumbar-type vertebral bodies; for the sake of this dictation, the most superior nonrib-bearing vertebral body is labeled L1. Age-indeterminate compression deformity about the L1 superior endplate as above. Degenerative change of the spine. CT/CT thoracic spine wo con IMPRESSION: Noncontrasted CT examinations of the chest, abdomen and pelvis, and thoracic spine 1. Trace right pleural effusion, decreased since CT comparison 10/06/2022; similar associated nonspecific pleural thickening. 2. Unchanged masslike right lower lobe consolidation, and nonspecific 2.4 cm nodular opacity in the left lower lobe. Right lower lobe opacity potentially relates to round atelectasis; superimposed infectious/inflammatory change would be difficult to exclude. 3. No acute findings within the abdomen and pelvis within limitations of noncontrast technique. 4. Age indeterminate compression fracture of the L1 superior endplate with minimal vertebral body height loss. Transitional lumbosacral anatomy; for the sake of this dictation the most superior nonrib-bearing vertebral body is labeled L1. 5. Grossly similar dilatation of the main pulmonary artery suggesting elevated pulmonary arterial pressures. 6. Nonspecific prominent mediastinal lymph nodes, the majority of which have decreased in size since previous CT 10/06/2021, with few others appearing unchanged. Electronically authenticated by: BRIGHT HARDY Date: 03/02/2023 16:01
--- NOTE | 2023-03-03 16:57 | ED.GENADUL1 ---
HPI - General Adult General Chief complaint: Fall Stated complaint: FELL LAST NIGHT/IN PAIN Time Seen by Provider: 03/02/23 13:35 Source: patient Mode of arrival: Wheelchair Limitations: no limitations Related Data Allergies Allergy/AdvReac Type Severity Reaction Status Date / Time codeine Allergy Intermediate Verified 03/02/23 12:08 Penicillins Allergy Intermediate Verified 03/02/23 12:08 Review of Systems ROS Constitutional Denies: fever or chills Ears, nose, mouth, and throat Denies: throat pain or neck pain Cardiovascular Denies: chest pain, palpitations or shortness of breath with exertion Respiratory Denies: shortness of breath or cough Gastrointestinal Denies: abdominal pain or nausea Genitourinary Denies: painful urination Musculoskeletal Reports: back pain; Denies: neck pain, extremity pain or muscle cramps Neurological Denies: headache Psychiatric Denies: anxiety or mood swings Hematologic/Lymphatic Denies: easy bruising Allergic/Immunologic Denies: hives [facility] Medical History (Updated 03/02/23 @ 16:59 by ZOEY Stevenson) Exam Narrative Exam Narrative: Vital Signs reviewed and nurse's notes reviewed. The patient is not hypoxic. General: Alert,patient appears uncomfortable worse with moving and position change in the room. Skin: warm, intact, no pallor noted, no rash, no external evidence of trauma with inspection of skin, no zoster-like rash. Head: Normocephalic, atraumatic Eye: Normal conjunctiva, EOMI Cardiac: irregularly irregular, history of atrial fibrillation Respiratory: No acute distress, chest wall is nontender. Abdomen: Normal bowel sounds, soft, nontender, no masses detected. No rebound, guarding, or rigidity noted. No midline pulsatile mass.no splenic or hepatic tenderness Back: inspection of the back shows no obvious deformity, no swelling, no ecchymosis, contusion, abrasion, swelling, erythema, fluctuance or induration. slight scoliotic curvature and kyphosis appreciated. No step offs or crepitus noted. No CVA tenderness noted bilaterally.positive tenderness mid thoracic and lower lumbar back, pain to sacrum and coccyx also noted along SI joint. There is no pain with range of motion of the bilateral hips. Straight leg raise. Tenderness noted to thoracic and lumbar spine. . Straight leg raise on left is negative. Straight leg raise on right is negative. Musculoskeletal: No deformity noted to bilateral lower extremities. no cyanosis or mottling noted. normal pulses at DP and PT 2+ bilaterally and symmetrically. Normal 5/5 strength at ankles with dorsiflexion and plantar flexion. Patient is able to ambulate. Normal sensation noted to the bilateral lower extremities. Neurological: alert and oriented x4, normal sensory and motor observed. DTR 2+ at patellar and achilles bilaterally. Psychiatric: Cooperative Constitutional Vital Signs, click to edit/add: Last Vital Signs Temp 97.4 F L 03/02/23 12:04 Pulse 82 03/02/23 12:04 Resp 18 03/02/23 12:04 BP 125/92 H 03/02/23 12:04 Pulse Ox 98 03/02/23 12:04 O2 Del Method Room Air 03/02/23 12:04 Course Vital Signs Vital signs: Vital Signs Temperature 97.4 F L 03/02/23 12:04 Pulse Rate 82 03/02/23 12:04 Respiratory Rate 18 03/02/23 12:04 Blood Pressure 125/92 H 03/02/23 12:04 Pulse Oximetry 98 03/02/23 12:04 Oxygen Delivery Method Room Air 03/02/23 12:04 Temperature 97.4 F L 03/02/23 12:04 Pulse Rate 82 03/02/23 12:04 Respiratory Rate 18 03/02/23 12:04 Blood Pressure 125/92 H 03/02/23 12:04 Pulse Oximetry 98 03/02/23 12:04 Oxygen Delivery Method Room Air 03/02/23 12:04 Medical Decision Making Lab Data Labs: Lab Results 03/02/23 Range/Units 14:25 WBC 8.5 (4.0-11.0) 10^3/uL RBC 4.13 L (4.20-5.40) 10^6/uL Hgb 12.2 (12.0-16.0) g/dL Hct 39.4 (36.0-48.0) % MCV 95.4 (81.0-99.0) fL MCH 29.5 (26.7-34.0) pg MCHC 31.0 (29.9-35.2) g/dL RDW 15.5 H (11.0-15.0) % Plt Count 236 (150-450) 10^3/uL MPV 9.7 (9.5-13.5) fL Neut % (Auto) 80.5 H (43.0-75.0) % Lymph % (Auto) 7.6 L (20.5-60.0) % [place] % (Auto) 9.1 (1.7-12.0) % Eos % (Auto) 2.1 (0.9-7.0) % Baso % (Auto) 0.5 (0.2-2.0) % Neut # (Auto) 6.9 H (1.4-6.5) 10^3/uL Lymph # (Auto) 0.7 L (1.2-3.8) 10^3/uL [place] # (Auto) 0.8 (0.3-0.8) 10^3/uL Eos # (Auto) 0.2 (0.0-0.7) 10^3/uL Baso # (Auto) 0.0 (0.0-0.1) 10^3/uL Abs Immat Gran (auto) 0.02 (0.00-0.03) 10^3/uL Imm/Tot Granulo (auto) 0.2 (0.0-0.5) % Sodium 135 L (136-145) mmol/L Potassium 3.8 (3.5-5.1) mmol/L Chloride 98 (98-107) mmol/L Carbon Dioxide 31.7 (21.0-32.0) mmol/L Anion Gap 9.1 BUN 39.0 H (7.0-18.0) mg/dL Creatinine 1.68 H (0.55-1.02) mg/dL Est GFR ( Amer) 35 L (>=60) Est GFR (Non-Af Amer) 29 L (>=60) BUN/Creatinine Ratio 23.2 Glucose 117 H (74-106) mg/dL Calcium 9.6 (8.5-10.1) mg/dL Myoglobin 132 H (9-82) ng/mL Troponin I High Sens 17.2 (4.0-51.3) pg/mL Discharge Plan Discharge Chief Complaint: Fall Clinical Impression: Acute thoracic back pain, Closed compression fracture of L1 vertebra, Lung mass Patient Disposition: Home, Self-Care Time of Disposition Decision: 16:57 Condition: Good Additional Instructions: no bending stooping or heavy lifting. Contact orthopedics Sunday for follow-up, recommend follow-up family doctor to discuss lung mass. Stand Alone Forms: Portal Instructions Referrals: JHONATAN LUCIA [Primary Care Provider] - 1 week Stalin Luna MD [Physician] - As soon as possible Discharge Date/Time: 03/02/23 17:13
== END 2023-03-02 17:13 | disposition home or self-care (01) ==
PROVIDERS: Personal Emergency Response Attendant; Emergency Provider Emergency Medicine; PCP Internal Medicine
DX: M54.6 Pain in thoracic spine (principal); S32.010A Wedge compression fracture of first lumbar vertebra, initial encounter for closed fracture; R91.8 Other nonspecific abnormal finding of lung field; W19.XXXA Unspecified fall, initial encounter
CPT/HCPCS: 36415; 71250; 72070; 72100; 72128; 74176; 80048; 83874; 84484; 93005; 96372; 99285

== ENCOUNTER 2023-03-04 13:35 | Emergency (ER) | payer MEDICARE, OTHER, SELFPAY ==
[2023-03-04 13:40] VITALS: BP 131/80; PULSE 90; RESP 20; TEMP 36.1; O2SAT 91; BMI 30.7
--- NOTE | 2023-03-04 13:47 | PC.NURSE ---
Pt was here on Sunday after her fall onto a cabinet. Pt states thw pain is still there and at times her legs seem to go numb. Pt was able to get out of car into wheelchair but needed help. States it is her whole back at this time that hurts.
--- NOTE | 2023-03-04 14:06 | XR_ITS ---
[facility] [place] [id number] Patient Name: KATHY VILLEGAS MRN: [id number] date: 1940 Sex: F Assigned Patient Location: ER Current Patient Location: ER Accession/Order Number: [id number] Exam Date: 03/04/2023 14:20 Report Date: 03/04/2023 15:13 At the request of: TONIA ROSENTHAL Procedure: XR lumbar spine 2-3V EXAM: XR lumbar spine 2-3V HISTORY: Back pain after fall COMPARISON: Abdomen and pelvic CT, thoracic spine CT and lumbar spine x-rays 03/02/2023 TECHNIQUE: 3 views FINDINGS: Maintenance of the normal lumbar lordosis. Again demonstrated is the mild superior endplate compression fracture of the T12 vertebral body, stable with the prior studies. Vertebral body heights and alignments are otherwise unremarkable. Age-related intervertebral disc space narrowing, endplate, uncovertebral and facet changes. Atherosclerosis of the vascular structures. Moderate amount of stool within the rectum. XR/XR lumbar spine 2-3V IMPRESSION: Stable age-indeterminate T12 superior endplate compression deformity No visualized acute abnormality Electronically authenticated by: MEENA FOSS Date: 03/04/2023 15:13
--- NOTE | 2023-03-04 14:15 | ED.BACK1 ---
HPI - Back Pain/Injury General Chief Complaint: Back Pain/Injury Stated Complaint: BACK PAIN Time Seen by Provider: 03/04/23 14:02 Source: patient Mode of arrival: Wheelchair Limitations: no limitations History of Present Illness HPI Narrative: This document has been composed with a new electronic medical record and dragging voice recognition system. This document may not fully inaccurately reflect the entirety of the patient encounter.patient's here for reevaluation of back pain. She was here earlier this week after a fall. The family's been assisting her at home because typically she lives by herself. She is only taken one Vicodin throughout the course of the entire day so far. She has not had any new trauma or falls or injuries. She had CT of her lung and T-spine on a recent evaluation here. The family is aware of the findings in her lung and they're to follow up with primary care doctor or the technologist at today. The meantime she still has severe pain in her upper lumbar area. Related Data Allergies Allergy/AdvReac Type Severity Reaction Status Date / Time codeine Allergy Intermediate Verified 03/02/23 12:08 Penicillins Allergy Intermediate Verified 03/02/23 12:08 [facility] Medical History (Updated 03/04/23 @ 15:42 by Ej Garcia MD) Exam Narrative Exam Narrative: awake alert good historian here with several family members to substantiate information. She is lying primarily on her right side. Constitutional her skin is warm and dry does not show a clamminess diaphoresis or pallor. She has good movement of all extremities. Problem focused examination shows her neurological examination lower extremities to have strong extensor hallucis longus function bilaterally. She has excellent deep tendon reflexes at patella. One over four at Achilles bilaterally but equal. She has no incontinence of bowel or bladder function. She has no sensory deficit but does have tingling sensation with no loss of sensation. Peripheral vascular examination lower extremities is normal. Neurological examination otherwise negative for any focal neurological deficits headache or neck pain. Constitutional Vital Signs, click to edit/add: Last Vital Signs Temp 97 F L 03/04/23 13:40 Pulse 90 03/04/23 13:40 Resp 20 03/04/23 13:40 BP 131/80 03/04/23 13:40 Pulse Ox 91 L 03/04/23 13:40 O2 Del Method Room Air 03/04/23 13:40 Course Vital Signs Vital signs: Vital Signs Temperature 97 F L 03/04/23 13:40 Pulse Rate 90 03/04/23 13:40 Respiratory Rate 20 03/04/23 13:40 Blood Pressure 131/80 03/04/23 13:40 Pulse Oximetry 91 L 03/04/23 13:40 Oxygen Delivery Method Room Air 03/04/23 13:40 Temperature 97 F L 03/04/23 13:40 Pulse Rate 90 03/04/23 13:40 Respiratory Rate 20 03/04/23 13:40 Blood Pressure 131/80 03/04/23 13:40 Pulse Oximetry 91 L 03/04/23 13:40 Oxygen Delivery Method Room Air 03/04/23 13:40 MDM - Back Pain/Injury MDM Narrative Medical decision making narrative: repeat plain films to be done to make sure this is not worsening of the compression fracture of the T12/L1 area. There is no acute neurological findings and she's only had one Vicodin tablet today. Imaging shows no deterioration or worsening of her compression fracture. Her neuromuscular examination neurological examination is normal. We will increase her analgesics at home she has family members to help her I would like her to call Dr. Luna, orthopedic surgeon tomorrow morning so he can review her case and imaging to decide whether not she would benefit from a type of surgical intervention. She was given the option of being admitted and sent for rehab but she wants to go home with supportive family measures Discharge Plan Discharge Chief Complaint: Back Pain/Injury Clinical Impression: Compression fracture of L1 lumbar vertebra Patient Disposition: Home, Self-Care Time of Disposition Decision: 15:42 Additional Instructions: increase her pain medication to two tablets every 4-[address] Luna in the morning for further management Stand Alone Forms: Portal Instructions Referrals: JHONATAN LUCIA [Primary Care Provider] - 1 week
[2023-03-04] MEDS: HYDROMORPHONE HCL 1 MG/ML CARTRIDGE 1.5 MG IM (14:51)
== END 2023-03-04 16:15 | disposition home or self-care (01) ==
PROVIDERS: Emergency Provider Emergency Medicine Emergency Medical Services; PCP Internal Medicine
DX: S32.010D Wedge compression fracture of first lumbar vertebra, subsequent encounter for fracture with routine healing (principal); W19.XXXD Unspecified fall, subsequent encounter
CPT/HCPCS: 72100; 96372; 99284; J1170

== ENCOUNTER 2023-03-08 10:13 | Outpatient (OUT) | payer MEDICARE, OTHER, SELFPAY ==
--- NOTE | 2023-03-08 10:45 | MR_ITS ---
[address] [address] Patient Name: KATHY VILLEGAS MRN: [facility]:[id number] date: 1940 Sex: F Assigned Patient Location: MRI Current Patient Location: MRI Accession/Order Number: [id number] Exam Date: 03/08/2023 10:45 Report Date: 03/08/2023 12:40 At the request of: SADIE JARAMILLO Procedure: MR lumbar spine wo con EXAM: MR lumbar spine wo con HISTORY: Compression Fracture T12 Vertebra S22.080A COMPARISON: CT chest abdomen pelvis 03/02/2023, lumbar spine radiographs 03/04/2023. TECHNIQUE: Multiplanar multisequence MR imaging of the lumbar spine was performed without intravenous contrast. FINDINGS: Alignment: No substantial subluxation. Vertebrae: There is stable degree of height loss (approximately 30%) at T12 with visible fracture line traversing the mid and superior aspect of the vertebral body contacting the anterior, superior posterior endplates. No evidence for extension of fracture into the posterior elements. There is associated mild marrow edema. Minimal retropulsion. No marrow signal abnormalities to suggest neoplasm. Conus medullaris: Conus terminates at L1. Normal signal and contour. Degenerative changes: T12-L1: Minimal disc bulge. No substantial canal stenosis. Mild bilateral foraminal stenosis. L1-L2: Minimal disc bulge. No substantial canal or foraminal stenosis. L2-L3: Small Schmorl's node involving the inferior plate of L2. Minimal eccentric left disc bulge with small left foraminal protrusion. Thickening of ligamentum flavum without substantial facet arthropathy. No substantial canal or foraminal stenosis. L3-L4: No substantial canal or foraminal stenosis. L4-L5: Diffuse disc bulge. Moderate bilateral facet arthropathy with thickening of ligamentum flavum. Moderate to advanced canal stenosis with AP diameter of the canal measuring 3.8 mm. Mild left foraminal stenosis. Right foramen is patent. L5-S1: No substantial canal or foraminal stenosis. Upper Sacrum: No focal lesion identified. Additional comments: Visualized portion of the intra-abdominal soft tissues are grossly unremarkable. MR/MR lumbar spine wo con IMPRESSION: 1. Stable degree of height loss involving T12 with mild marrow edema consistent with subacute fracture involving T12 with minimal retropulsion. Approximately 30% height loss. 2. Relatively mild degenerative change of lumbar spine most prominent at L4-L5 moderate to advanced canal stenosis at this level secondary to disc bulge and facet arthropathy. Electronically authenticated by: GEE HAGEN Date: 03/08/2023 12:40
== END 2023-03-08 10:14 | disposition home or self-care (01) ==
LOC: MRI 10:13
PROVIDERS: PCP Internal Medicine; Visit Provider Orthopaedic Surgery
DX: S22.080A Wedge compression fracture of T11-T12 vertebra, initial encounter for closed fracture (principal)
CPT/HCPCS: 72148

== ENCOUNTER 2023-04-09 12:36 | Outpatient (OUT) | payer MEDICARE, OTHER, SELFPAY ==
[2023-04-09 13:40] LABS: Free T4 1.19 ng/dL (0.76-1.46)
[2023-04-09 13:48] LABS: Free T3 2.53 pg/mL (2.18-3.98); Thyroid Stimulating Hormone 0.829 uIU/mL (0.358-3.740)
== END 2023-04-09 12:37 | disposition home or self-care (01) ==
LOC: LAB 12:37
PROVIDERS: PCP Internal Medicine; Visit Provider Internal Medicine
DX: E04.1 Nontoxic single thyroid nodule (principal); E02 Subclinical iodine-deficiency hypothyroidism
CPT/HCPCS: 36415; 84439; 84443; 84481

== ENCOUNTER 2023-06-20 14:07 | Emergency (ER) | payer MEDICARE, OTHER, SELFPAY ==
[2023-06-20 14:13] VITALS: BP 117/87; PULSE 82; RESP 16; TEMP 36.4; O2SAT 91; BMI 28.7
--- NOTE | 2023-06-20 14:19 | XR_ITS ---
The [address] [address] Patient Name: KATHY VILLEGAS MRN: [id number] date: 1940 Sex: F Assigned Patient Location: ER Current Patient Location: ER Accession/Order Number: [id number] Exam Date: 06/20/2023 15:00 Report Date: 06/20/2023 15:27 At the request of: MERA OLEARY Procedure: XR foot LT min 3V EXAM: XR foot LT min 3V HISTORY: Left foot pain and redness COMPARISON: None. TECHNIQUE: 3 views FINDINGS: No visualized acute fracture, dislocation, subluxation or osseous lesion. Moderate degenerative changes of first metatarsophalangeal joint. Age-related changes of the IP joints. Chronic lateral subluxation of the sesamoids. No visualized soft tissue edema. XR/XR foot LT min 3V IMPRESSION: No visualized acute abnormality Electronically authenticated by: MEENA FOSS Date: 06/20/2023 15:27
--- NOTE | 2023-06-20 14:41 | ED.GENADUL1 ---
Documented by User: ZOEY Sewell 06/20/23 15:50 HPI - General Adult General Chief complaint: Extremity Injury, Lower Stated complaint: LOWER EXTREMITY INJURY LEFT FOOT Time Seen by Provider: 06/20/23 14:17 Source: patient Mode of arrival: Wheelchair History of Present Illness HPI narrative: Patient is an 83-year-old female who presents to the emergency department for 3-day history of redness and swelling to the dorsum of the left foot. She states several days ago she did injure the great toe of the left foot when she injured the left foot on a door, she sustained a small abrasion to the distal tip of the left great toe. In the last 2 days she has had an increase in pain and swelling with redness over the dorsal lateral aspect of the left foot. She is able to ambulate but reports pain with doing so. No other falls or injuries. She has not had any drainage from the area. No medications taken prior to arrival. Related Data Previous Rx's Medication Instructions Recorded cephalexin 500 mg capsule 500 mg PO Q8H 7 days #21 caps 06/20/23 prednisone 20 mg tablet 40 mg (2 x 20 mg) PO DAILY 3 days 06/20/23 #6 tabs tramadol 50 mg tablet 50 mg PO Q4H PRN pain 3 days #15 06/20/23 tabs Allergies Allergy/AdvReac Type Severity Reaction Status Date / Time codeine Allergy Intermediate Verified 03/02/23 12:08 Penicillins Allergy Intermediate Verified 03/02/23 12:08 Review of Systems ROS Constitutional Denies: fever or chills Ears, nose, mouth, and throat Denies: throat pain or nasal congestion Respiratory Denies: shortness of breath or cough Gastrointestinal Denies: nausea or vomiting Genitourinary Denies: painful urination Musculoskeletal Reports: extremity pain and extremity swelling; Denies: back pain or neck pain Integumentary/Breast Reports: redness and skin swelling Neurological Denies: headache Hematologic/Lymphatic Denies: easy bruising [facility] Medical History (Updated 06/20/23 @ 15:44 by ZOEY Sewell) Atrial fibrillation ?I48.91 - Unspecified atrial fibrillation (ICD-10) Exam Narrative Exam Narrative: Gen.: Awake, alert, in no distress Head: Normocephalic, atraumatic ENT: Moist mucous membranes Respiratory: No respiratory distress Extremities: Moves extremities equally, scabbed abrasion noted to the distal tip of the left great toe. No surrounding redness, no subungual hematoma. 2+ left DP pulse. Small area of redness, mild edema noted to the dorsal lateral aspect of the foot, mildly tender to palpation. No joint swelling noted. No open wounds or drainage. No red streaking or circumferential erythema Psych: Normal mood and affect Neuro: No focal neuro deficit Skin: Warm, dry, intact Constitutional Vital Signs, click to edit/add: Last Vital Signs Temp 97.6 F 06/20/23 14:13 Pulse 82 06/20/23 14:13 Resp 16 06/20/23 14:13 BP 117/87 06/20/23 14:13 Pulse Ox 91 L 06/20/23 14:13 O2 Del Method Room Air 06/20/23 14:13 Course Vital Signs Vital signs: Vital Signs Temperature 97.6 F 06/20/23 14:13 Pulse Rate 82 06/20/23 14:13 Respiratory Rate 16 06/20/23 14:13 Blood Pressure 117/87 06/20/23 14:13 Pulse Oximetry 91 L 06/20/23 14:13 Oxygen Delivery Method Room Air 06/20/23 14:13 Temperature 97.6 F 06/20/23 14:13 Pulse Rate 82 06/20/23 14:13 Respiratory Rate 16 06/20/23 14:13 Blood Pressure 117/87 06/20/23 14:13 Pulse Oximetry 91 L 06/20/23 14:13 Oxygen Delivery Method Room Air 06/20/23 14:13 Medical Decision Making MDM Narrative Medical decision making narrative: Lab studies show elevated inflammatory markers and mildly elevated uric acid, patient does have a history of gout. She will be treated with low-dose steroids for this as she has chronic kidney disease and we will avoid anti-inflammatories and steroids together. She is given a short course of analgesics and as she is diabetic, we will treat with Keflex for 7 days. She is encouraged to elevate the foot and return to the ER if symptoms change or worsen. Medical Records Medical records reviewed: Yes I reviewed the patient's medical records Lab Data Lab results reviewed: Yes I reviewed the patient's lab results Labs: Lab Results 06/20/23 Range/Units 14:52 WBC 7.3 (4.0-11.0) 10^3/uL RBC 3.81 L (4.20-5.40) 10^6/uL Hgb 11.8 L (12.0-16.0) g/dL Hct 37.5 (36.0-48.0) % MCV 98.4 (81.0-99.0) fL MCH 31.0 (26.7-34.0) pg MCHC 31.5 (29.9-35.2) g/dL RDW 14.4 (11.0-15.0) % Plt Count 217 (150-450) 10^3/uL MPV 9.6 (9.5-13.5) fL Neut % (Auto) 69.5 (43.0-75.0) % Lymph % (Auto) 14.3 L (20.5-60.0) % Turner % (Auto) 11.6 (1.7-12.0) % Eos % (Auto) 3.8 (0.9-7.0) % Baso % (Auto) 0.7 (0.2-2.0) % Neut # (Auto) 5.1 (1.4-6.5) 10^3/uL Lymph # (Auto) 1.1 L (1.2-3.8) 10^3/uL Turner # (Auto) 0.9 H (0.3-0.8) 10^3/uL Eos # (Auto) 0.3 (0.0-0.7) 10^3/uL Baso # (Auto) 0.1 (0.0-0.1) 10^3/uL Abs Immat Gran (auto) 0.01 (0.00-0.03) 10^3/uL Imm/Tot Granulo (auto) 0.1 (0.0-0.5) % ESR 118 H (<=30) mm/hr Sodium 136 (136-145) mmol/L Potassium 3.9 (3.5-5.1) mmol/L Chloride 96 L (98-107) mmol/L Carbon Dioxide 34.1 H (21.0-32.0) mmol/L Anion Gap 9.8 BUN 37.0 H (7.0-18.0) mg/dL Creatinine 1.70 H (0.55-1.02) mg/dL Est GFR ( Amer) 35 L (>=60) Est GFR (Non-Af Amer) 29 L (>=60) BUN/Creatinine Ratio 21.8 Glucose 118 H (74-106) mg/dL Uric Acid 8.4 H (2.6-6.0) mg/dL Calcium 9.3 (8.5-10.1) mg/dL C-Reactive Protein 1.55 H (<=0.50) mg/dL Imaging Data XR foot: Attestation: I have reviewed the pertinent imaging results. Radiologist's impression: Procedure: XR foot LT min 3V EXAM: XR foot LT min 3V HISTORY: Left foot pain and redness COMPARISON: None. TECHNIQUE: 3 views FINDINGS: No visualized acute fracture, dislocation, subluxation or osseous lesion. Moderate degenerative changes of first metatarsophalangeal joint. Age-related changes of the IP joints. Chronic lateral subluxation of the sesamoids. No visualized soft tissue edema. IMPRESSION: No visualized acute abnormality Electronically authenticated by: MEENA FOSS Date: 06/20/2023 15:27 Discharge Plan Discharge Chief Complaint: Extremity Injury, Lower Clinical Impression: Acute pain of left foot Patient Disposition: Home, Self-Care Time of Disposition Decision: 15:44 Condition: Good Prescriptions / Home Meds: New cephalexin 500 mg capsule 500 mg PO Q8H 7 Days Qty: 21 0RF prednisone 20 mg tablet 40 mg PO DAILY 3 Days Qty: 6 0RF tramadol 50 mg tablet 50 mg PO Q4H PRN (Reason: pain) 3 Days Qty: 15 0RF Rx Instructions: DX: M79.672 Instructions: Arthralgia (ED) Stand Alone Forms: Portal Instructions Referrals: JHONATAN LUCIA [Primary Care Provider] - 1 week Massimo Peck DPM [Physician] - 1 week Discharge Date/Time: 06/20/23 15:59 Documented by User: Lance Deluca MD 06/20/23 20:06 HPI - General Adult General Chief complaint: Extremity Injury, Lower Stated complaint: LOWER EXTREMITY INJURY LEFT FOOT Time Seen by Provider: 06/20/23 14:17 Related Data Previous Rx's Medication Instructions Recorded cephalexin 500 mg capsule 500 mg PO Q8H 7 days #21 caps 06/20/23 prednisone 20 mg tablet 40 mg (2 x 20 mg) PO DAILY 3 days 06/20/23 #6 tabs tramadol 50 mg tablet 50 mg PO Q4H PRN pain 3 days #15 06/20/23 tabs Allergies Allergy/AdvReac Type Severity Reaction Status Date / Time codeine Allergy Intermediate Verified 03/02/23 12:08 Penicillins Allergy Intermediate Verified 03/02/23 12:08 [facility] Medical History (Updated 06/20/23 @ 15:44 by ZOEY Sewell) Atrial fibrillation ?I48.91 - Unspecified atrial fibrillation (ICD-10) Exam Constitutional Vital Signs, click to edit/add: Last Vital Signs Temp 97.6 F 06/20/23 14:13 Pulse 82 06/20/23 14:13 Resp 16 06/20/23 14:13 BP 117/87 06/20/23 14:13 Pulse Ox 91 L 06/20/23 14:13 O2 Del Method Room Air 06/20/23 14:13 Course Vital Signs Vital signs: Vital Signs Temperature 97.6 F 06/20/23 14:13 Pulse Rate 82 06/20/23 14:13 Respiratory Rate 16 06/20/23 14:13 Blood Pressure 117/87 06/20/23 14:13 Pulse Oximetry 91 L 06/20/23 14:13 Oxygen Delivery Method Room Air 06/20/23 14:13 Temperature 97.6 F 06/20/23 14:13 Pulse Rate 82 06/20/23 14:13 Respiratory Rate 16 06/20/23 14:13 Blood Pressure 117/87 06/20/23 14:13 Pulse Oximetry 91 L 06/20/23 14:13 Oxygen Delivery Method Room Air 06/20/23 14:13 Medical Decision Making MDM Narrative Medical decision making narrative: Lab studies show elevated inflammatory markers and mildly elevated uric acid, patient does have a history of gout. She will be treated with low-dose steroids for this as she has chronic kidney disease and we will avoid anti-inflammatories and steroids together. She is given a short course of analgesics and as she is diabetic, we will treat with Keflex for 7 days. She is encouraged to elevate the foot and return to the ER if symptoms change or worsen. I, Dr Deluca, have reviewed the above progress note and course of action in the ER; agree with the above. I have gone over history and physical, and discussed disposition and treatment plan with the patient. Lab Data Labs: Lab Results 06/20/23 Range/Units 14:52 WBC 7.3 (4.0-11.0) 10^3/uL RBC 3.81 L (4.20-5.40) 10^6/uL Hgb 11.8 L (12.0-16.0) g/dL Hct 37.5 (36.0-48.0) % MCV 98.4 (81.0-99.0) fL MCH 31.0 (26.7-34.0) pg MCHC 31.5 (29.9-35.2) g/dL RDW 14.4 (11.0-15.0) % Plt Count 217 (150-450) 10^3/uL MPV 9.6 (9.5-13.5) fL Neut % (Auto) 69.5 (43.0-75.0) % Lymph % (Auto) 14.3 L (20.5-60.0) % Turner % (Auto) 11.6 (1.7-12.0) % Eos % (Auto) 3.8 (0.9-7.0) % Baso % (Auto) 0.7 (0.2-2.0) % Neut # (Auto) 5.1 (1.4-6.5) 10^3/uL Lymph # (Auto) 1.1 L (1.2-3.8) 10^3/uL Turner # (Auto) 0.9 H (0.3-0.8) 10^3/uL Eos # (Auto) 0.3 (0.0-0.7) 10^3/uL Baso # (Auto) 0.1 (0.0-0.1) 10^3/uL Abs Immat Gran (auto) 0.01 (0.00-0.03) 10^3/uL Imm/Tot Granulo (auto) 0.1 (0.0-0.5) % ESR 118 H (<=30) mm/hr Sodium 136 (136-145) mmol/L Potassium 3.9 (3.5-5.1) mmol/L Chloride 96 L (98-107) mmol/L Carbon Dioxide 34.1 H (21.0-32.0) mmol/L Anion Gap 9.8 BUN 37.0 H (7.0-18.0) mg/dL Creatinine 1.70 H (0.55-1.02) mg/dL Est GFR ( Amer) 35 L (>=60) Est GFR (Non-Af Amer) 29 L (>=60) BUN/Creatinine Ratio 21.8 Glucose 118 H (74-106) mg/dL Uric Acid 8.4 H (2.6-6.0) mg/dL Calcium 9.3 (8.5-10.1) mg/dL C-Reactive Protein 1.55 H (<=0.50) mg/dL Discharge Plan Discharge Chief Complaint: Extremity Injury, Lower Clinical Impression: Acute pain of left foot Patient Disposition: Home, Self-Care Time of Disposition Decision: 15:44 Condition: Good Prescriptions / Home Meds: New cephalexin 500 mg capsule 500 mg PO Q8H 7 Days Qty: 21 0RF prednisone 20 mg tablet 40 mg PO DAILY 3 Days Qty: 6 0RF tramadol 50 mg tablet 50 mg PO Q4H PRN (Reason: pain) 3 Days Qty: 15 0RF Rx Instructions: DX: M79.672 Instructions: Arthralgia (ED) Stand Alone Forms: Portal Instructions Referrals: JHONATAN LUCIA [Primary Care Provider] - 1 week Massimo Peck DPM [Physician] - 1 week Discharge Date/Time: 06/20/23 15:59
[2023-06-20 14:58] LABS: Basophils Absolute Auto 0.1 10^3/uL (0.0-0.1); Basophils Percent Auto 0.7 % (0.2-2.0); Eosinophils Absolute Auto 0.3 10^3/uL (0.0-0.7); Eosinophils Percent Auto 3.8 % (0.9-7.0); Hematocrit 37.5 % (36.0-48.0); Hemoglobin 11.8 g/dL (12.0-16.0); Immature Granulocytes Abs Auto 0.01 10^3/uL (0.00-0.03); Immature Granulocytes Pct Auto 0.1 % (0.0-0.5); Lymphocytes Absolute Auto 1.1 10^3/uL (1.2-3.8); Lymphocytes Percent Auto 14.3 % (20.5-60.0); Mean Corpuscular HGB Conc 31.5 g/dL (29.9-35.2); Mean Corpuscular Volume 98.4 fL (81.0-99.0); Mean Platelet Volume 9.6 fL (9.5-13.5); Monocytes Absolute Auto 0.9 10^3/uL (0.3-0.8); Monocytes Percent Auto 11.6 % (1.7-12.0); Neutrophils Absolute Auto 5.1 10^3/uL (1.4-6.5); Neutrophils Percent Auto 69.5 % (43.0-75.0); Platelet Count 217 10^3/uL (150-450); Red Blood Count 3.81 10^6/uL (4.20-5.40); Red Cell Distribution Width 14.4 % (11.0-15.0); White Blood Count 7.3 10^3/uL (4.0-11.0)
[2023-06-20 15:02] LABS: Erythrocyte Sedimentation Rate 118 mm/hr (<=30)
[2023-06-20 15:22] LABS: Anion Gap 9.8; BUN Creatinine Ratio 21.8; C Reactive Protein 1.55 mg/dL (<=0.50); Calcium 9.3 mg/dL (8.5-10.1); Carbon Dioxide 34.1 mmol/L (21.0-32.0); Chloride 96 mmol/L (98-107); Estimated GFR (African America 35 (>=60); Estimated GFR (Non-African Ame 29 (>=60); Glucose 118 mg/dL (74-106); Potassium 3.9 mmol/L (3.5-5.1); Sodium 136 mmol/L (136-145); Uric Acid 8.4 mg/dL (2.6-6.0)
== END 2023-06-20 15:59 | disposition home or self-care (01) ==
PROVIDERS: Physician Assistant; Emergency Provider Emergency Medicine; PCP Internal Medicine
DX: M79.672 Pain in left foot (principal); I48.91 Unspecified atrial fibrillation; N18.9 Chronic kidney disease, unspecified; E11.22 Type 2 diabetes mellitus with diabetic chronic kidney disease
CPT/HCPCS: 36415; 73630; 80048; 84550; 85025; 85652; 86140; 99284

== ENCOUNTER 2023-10-23 12:47 | Outpatient (OUT) | payer MEDICARE, OTHER, SELFPAY ==
--- NOTE | 2023-10-23 13:00 | CA_ITS ---
Patient Name: KATHY VILLEGAS MR#: [id number] : 1940 Exam Date: 10/23/2023 Ordering Doctor: MRS. RAMY IBRAHIM NP ECHOCARDIOGRAM REPORT PROCEDURE: CA ECHO DOPPLER COMPLETE INDICATIONS: Congestive heart failure, atrial fibrillation, bio-prosthetic aortic valve, hypertension COMPARISON: None. DESCRIPTION: COMPLETE ECHOCARDIOGRAM Real-time transthoracic echocardiography with 2D, M-mode, spectral and color flow Doppler performed. QUALITY: Technical quality was good. 62 , 155#, BSA 1.72 m2, BP 108/70 LEFT VENTRICLE: Normal chamber size. Thickened septal wall. Low normal systolic function. LV EF: Low normal left ventricular ejection fraction, (50-55%). DIASTOLIC: Not adequately assessed due to heart rhythm. ATRIAL SEPTUM: Visually appears intact. LEFT ATRIUM: Severe dilatation. RIGHT ATRIUM: Severe dilatation. RIGHT VENTRICLE: Severe dilatation. Systolic function appears preserved. TRICUSPID VALVE: Normal mobility and thickness. No stenosis with severe regurgitation. Doppler studies reveal severely (>60) elevated right sided pressures. RVSP 77 mmHg MITRAL VALVE: Moderately thickened with moderately decreased mobility. Mild to moderate mitral valve stenosis. Moderate mitral annular calcification. Mild mitral regurgitation. AORTIC VALVE: Bio-Prosthetic valve appears well seated in the aortic position with abnormal doppler flow. Moderately calcified aortic valve. Moderately diminished mobility. At least moderate stenosis of the bioprosthetic valve. Mild aortic regurgitation. DVI 0.2, Mean PG 17.75 mmHg. Mild aortic regurgitation. AORTIC ROOT: Normal diameter and appearance. Ascending aorta is normal in size. PULMONIC VALVE: Normal thickness and mobility. Mild regurgitation. PERICARDIUM: No evidence of pericardial effusion. IVC: IVC is dilated (2.3 cm) with no collapse. PLEURA: CONCLUSION: 1. The left ventricle is normal in size and exhibits low normal systolic function. Estimated LVEF is 50-55%. 2. The right ventricle is severely dilated and exhibits normal systolic function. 3. Severe biatrial dilatation. 4. 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 Mild aortic regurgitation is seen. 5. Mild to moderate mitral stenosis with mild mitral regurgitation. 6. Severe tricuspid regurgitation. 7. Severely elevated right-sided pressures. 8. Depending on the clinical picture, a transesophageal echocardiogram is recommended for further assessment of the valvular lesions. Adult Echocardiography Procedure Report Left Ventricle LVEDD (3.7 - 5.6 cm): 4.64 cm LVESD (2.2 - 4.0 cm): 4.06 cm LVIVS thickness (0.6 - 1.2 cm): 0.94 cm LVPW thickness (0.5 - 1.0 cm): 1.30 cm LVOT Max Gradient: 1.66 mm[Hg], 1.72 mm[Hg] LVOT Area (cm2): 0.65 m/s Peak Velocity (LVOT): 0.64 m/s, 0.66 m/s Mean Velocity (LVOT): 0.45 m/s LVOT Diameter 1.99 cm Left Atrium LA Volume Index (2D A2C): 58.64 ml/m2 Left Atrium Systolic Dimension: 5.15 cm Mitral Valve Mitral Valve E-Wave Peak Velocity: 1.61 m/s Right Ventricle Aorta AO Root Diam: 3.18 cm Ascending Ao Diam: 3.33 cm Aortic Valve AoV Area (Peak Merrick): 0.66 cm2, 0.65 cm2 AoV Area (VTI): 0.70 cm2, 0.75 cm2 Deceleration Doddridge: 2.56 m/s2, 2.71 m/s2 Pressure Half-Time: 483.13 ms, 404.28 ms Peak Velocity(Antegrade Flow): 3.07 m/s Peak Gradient(Antegrade Flow): 37.70 mm[Hg] Mean Velocity(Antegrade Flow): 1.94 m/s Mean Gradient(Antegrade Flow): 17.75 mm[Hg] Velocity Time Integral: 63.88 cm Tricuspid Valve Peak Velocity (Regurgitant Flow): 3.24 m/s, 3.94 m/s Pulmonic Valve Peak Velocity: 1.22 m/s Peak Gradient: 8.27 mm[Hg], 4.06 mm[Hg] Right Atrium Right Atrium Systolic Pressure: 72.40 ml, 72.40 ml Dictated by: Perez Nova M.D. on 10/23/2023 at 17:51 Approved by: Perez Nova M.D. on 10/23/2023 at 18:03
== END 2023-10-23 12:48 | disposition home or self-care (01) ==
LOC: CARD 12:48
PROVIDERS: PCP Internal Medicine; Visit Provider Nurse Practitioner Acute Care
DX: I34.2 Nonrheumatic mitral (valve) stenosis (principal); Z95.3 Presence of xenogenic heart valve; I50.32 Chronic diastolic (congestive) heart failure
CPT/HCPCS: 93306

== ENCOUNTER 2023-11-17 11:18 | Observation (INO) | payer MEDICARE, OTHER, SELFPAY ==
[2023-11-17] VITALS (31 sets, daily range): BP systolic 126–162; BP diastolic 55–97; PULSE 75–114; TEMP 36.4–36.6; O2SAT 84–98; BMI 27.8; BMI 28.1
--- NOTE | 2023-11-17 11:35 | PC.NURSE ---
pt on RA hypoxic at 87-90%, pt reports wears O2 at home at night. 2L nc in place and O2 sats 94%, pt denies cough, alert and oriented. will continue to monior
--- NOTE | 2023-11-17 11:36 | XR_ITS ---
The [address] [address] Patient Name: KATHY VILLEGAS MRN: [id number] date: 1940 Sex: F Assigned Patient Location: ED.MAIN Current Patient Location: Accession/Order Number: [id number] Exam Date: 11/17/2023 12:14 Report Date: 11/17/2023 13:03 At the request of: POPPY OLIVERA Procedure: XR chest 1V EXAM: XR chest 1V HISTORY: chest pain COMPARISON: Chest x-ray 11/13/[address] 03/02/2023. TECHNIQUE: Portable AP upright chest x-ray FINDINGS: There is a focal density at the left lung base adjacent to the left heart margin and diaphragm new from chest x-ray 11/13/2022. Density present in this area on chest CT 03/02/2023. Question recurrent inflammatory process, neoplasm or round atelectasis. Demonstrates a somewhat focal nodular appearance. The left mid and upper lung field appear clear and unchanged. Right appears clear. The process noted at the right lung base below the diaphragm on chest CT 03/02/2023 is not visualized on x-ray. Cardiac enlargement unchanged. Sternotomy wires. No definite increasing pleural effusion. No pneumothorax. XR/XR chest 1V IMPRESSION: Focal density left lung base corresponding to the density seen on chest CT 03/02/2023, new from chest x-ray 11/13/2022. Question recurrent inflammatory process, neoplasm or round atelectasis.. Consider follow-up chest CT. Other findings appear chronic and unchanged. Airspace density noted right lung base on chest CT 03/02/2023 not visualized. Electronically authenticated by: FROILAN PARKER Date: 11/17/2023 13:03
--- NOTE | 2023-11-17 11:36 | ECG_ITS ---
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
[2023-11-17 11:53] LABS: Hematocrit 34.1 % (36.0-48.0); Hemoglobin 10.3 g/dL (12.0-16.0); Mean Corpuscular HGB Conc 30.2 g/dL (29.9-35.2); Mean Corpuscular Hemoglobin 28.9 pg (26.7-34.0); Mean Corpuscular Volume 95.5 fL (81.0-99.0); Mean Platelet Volume 10.1 fL (9.5-13.5); Platelet Count 254 10^3/uL (150-450); Red Blood Count 3.57 10^6/uL (4.20-5.40); Red Cell Distribution Width 15.9 % (11.0-15.0); White Blood Count 8.2 10^3/uL (4.0-11.0)
[2023-11-17 12:13] LABS: Alanine Aminotransferase 16 U/L (14-59); Albumin Globulin Ratio 0.8; Albumin Level 3.4 g/dL (3.4-5.0); Alkaline Phosphatase 108 U/L (46-116); Anion Gap 16.1; Aspartate Amino Transferase 17 U/L (15-37); BUN Creatinine Ratio 28.7; Bilirubin Total 1.3 mg/dL (0.2-1.0); Calcium 9.6 mg/dL (8.5-10.1); Carbon Dioxide 27.6 mmol/L (21.0-32.0); Chloride 101 mmol/L (98-107); Estimated GFR (African America 31 (>=60); Estimated GFR (Non-African Ame 25 (>=60); Globulin 4.5 g/dL; Glucose 168 mg/dL (74-106); Potassium 3.7 mmol/L (3.5-5.1); Sodium 141 mmol/L (136-145); Total Protein 7.9 g/dL (6.4-8.2); Troponin I High Sensitivity 26.8 pg/mL (4.0-51.3)
[2023-11-17 12:49] LABS: Band Neutrophils Absolute 0.2 10^3/uL (0.0-0.3); Eosinophils Absolute Manual 0.16 10^3/uL (0.00-0.70); Lymphocytes Absolute Manual 0.65 10^3/uL (1.20-3.80); Monocytes Absolute Manual 0.65 10^3/uL (0.30-0.80); Segmented Neut Absolute Manual 6.56 10^3/uL (1.4-6.5)
[2023-11-17] MEDS: FUROSEMIDE 40 MG/4 ML VIAL IVP ×2 (14:17→21:21)
--- NOTE | 2023-11-17 15:21 | RESP.RT ---
titrated down to 1L
--- NOTE | 2023-11-17 15:28 | ED_ITS ---
HPI HPI - General Adult General Chief complaint: Arrhythmia/Palpitations Stated complaint: FAST HEART RATE Time Seen by Provider: 11/17/23 11:27 Source: patient Mode of arrival: Wheelchair History of Present Illness HPI narrative: 83-year-old female to the emergency department with chief complaint of palpitations. Patient reports throughout the day yesterday she noticed she was short of breath with exertion and had palpitations when she was up and about. Denies any chest pain. Denies any fever, sweats, chills. Denies any cough. Related Data Home Medications ?Medication ?Instructions ?Recorded ?Confirmed alprazolam 0.25 mg tablet 0.25 mg PO Q6H PRN anxiety 11/17/23 11/17/23 aspirin 81 mg tablet,delayed 81 mg PO DAILY 11/17/23 11/17/23 release (Adult Low Dose Aspirin) atorvastatin 20 mg tablet 20 mg PO QPM 11/17/23 11/17/23 bupropion HCl 150 mg tablet,12 hr 150 mg PO BID 11/17/23 11/17/23 sustained-release carvedilol 12.5 mg tablet 6.25 mg PO BID 11/17/23 11/17/23 colchicine 0.6 mg tablet 0.6 mg PO DAILY 11/17/23 11/17/23 digoxin 125 mcg (0.125 mg) tablet 0.125 mg PO .ev other day 11/17/23 11/17/23 escitalopram oxalate 10 mg tablet 10 mg PO DAILY 11/17/23 11/17/23 gabapentin 100 mg capsule 100 mg PO TID 11/17/23 11/17/23 insulin lispro protamine-lispro 8 unit subcut BID 11/17/23 11/17/23 100 unit/mL (75-25) subcutaneous pen levothyroxine 50 mcg tablet 25 mcg PO QAM 11/17/23 11/17/23 (Euthyrox) omeprazole 40 mg capsule,delayed 40 mg PO DAILY 11/17/23 11/17/23 release ropinirole 0.25 mg tablet 0.25 mg PO QPM 11/17/23 11/17/23 torsemide 20 mg tablet 50 mg PO DAILY 11/17/23 11/17/23 Allergies Allergy/AdvReac Type Severity Reaction Status Date / Time codeine Allergy Intermediate Verified 03/02/23 12:08 Penicillins Allergy Intermediate Verified 03/02/23 12:08 Opioid HPI Opioid Management Most Recent Opioid Data: Last Pain Scale 10 03/04/23 14:51 Review of Systems ROS Status of ROS 10 or more systems reviewed and unremark able except as noted in history and below PFSH PFSH Medical History (Updated 11/17/23 @ 14:58 by Aylin Nobles) 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 ?F32.89 - Other specified depressive episodes (ICD-10) Anxiety ?F41.9 - Anxiety disorder, unspecified (ICD-10) Diabetes ?E11.9 - Type 2 diabetes mellitus without complications (ICD-10) Congestive heart failure ?I50.9 - Heart failure, unspecified (ICD-10) Hypertension ?I10 - Essential (primary) hypertension (ICD-10) Atrial fibrillation ?I48.91 - Unspecified atrial fibrillation (ICD-10) Surgical History (Updated 11/17/23 @ 14:54 by Aylin Nobles) S/P ablation of atrial fibrillation ?Z98.890 - Other specified postprocedural states (ICD-10) ?Z86.79 - Personal history of other diseases of the circulatory system (ICD- 10) History of carpal tunnel surgery of right wrist ?Z98.890 - Other specified postprocedural states (ICD-10) H/O: hysterectomy ?Z90.710 - Acquired absence of both cervix and uterus (ICD-10) Aortic valve replaced ?Z95.2 - Presence of prosthetic heart valve (ICD-10) History of cholecystectomy ?Z90.49 - Acquired absence of other specified parts of digestive tract (ICD- 10) Family History (Updated 11/17/23 @ 14:56 by Aylin Nobles) Mother Family history of CHF (congestive heart failure) Father Family history of diabetes mellitus Sister Family history of diabetes mellitus Son Family history of myocardial infarction Social History (Updated 11/17/23 @ 14:57 by Aylin Nobles) Within the past year, how often did you have a drink containing alcohol: monthly or less Within the past year, how many standard drinks containing alcohol did you have on a typical day: 1 or 2 Within the past year, how often did you have six or more drinks on one occasion: never Total score: 0 Score interpretation: A score less than 3 is consistent with normal alcohol con sumption. Smoking status: Former smoker Non-prescribed substance use: denies use Previous occupational history: retired Highest level of school completed/degree received: 11th grade Are you now , , , , never or living with a partner: In a typical week, how many times do you talk on the telephone with family, friends, or neighbors: 3 or more times per week How often do you get together with friends or relatives: 3 or more times per week How often do you attend zoroastrian or rastafarian services: 4 or more times per year Do you belong to any clubs or organizations such as zoroastrian groups unions, fraternal or athletic groups, or school groups: no Total score: 2 Score interpretation: A score of greater than or equal to 2 indicates the lowest level of social isolation. Little interest or pleasure in doing things: not at all Feeling down, depressed, or hopeless: not at all Feel stressed/tense/nervous/anxious/difficulty sleeping: not at all Exam Narrative Exam Narrative: VITALS: I have reviewed the triage vital signs. GENERAL: Well developed, well appearing adult Femalein no acute distress. NEURO: Alert and oriented. Moves all extremities. Face is symmetric and expressive. EYES: PERRL. No scleral icterus or conjunctival injection. No discharge. HENT: Normocephalic, atraumatic. Hearing is grossly intact. Nares grossly patent and without discharge. Mucous membranes moist. NECK: No JVD. Patient moves neck without restriction. CARDIO: Normal rate. Heart regular rhythm. No murmur, rub, or gallop. Pulses equal bilaterally in the upper and lower extremity. No lower extremity edema. PULM: Crackles at the bases. No conversational dyspnea. No increased work of breathing. GI/: Abdomen is soft and non-tender. Normoactive bowel sounds. EXTREMITIES: Symmetric muscle bulk. No joint swelling. No clubbing, cyanosis, or deformity. SKIN: Warm and dry. Normal turgor. No rash or lesions appreciated. PSYCH: Mood, affect, and interaction is appropriate to the setting. Constitutional Vital Signs, click to edit/add: Last Vital Signs Temp 97.6 F 11/17/23 14:53 Pulse 108 H 11/17/23 14:53 Resp 20 11/17/23 14:53 BP 126/75 11/17/23 14:53 Pulse Ox 98 11/17/23 15:21 O2 Del Method Nasal Cannula 11/17/23 15:21 O2 Flow Rate 2 11/17/23 15:21 Course Vital Signs Vital signs: Vital Signs Pulse Rate 101 H 11/17/23 11:26 Respiratory Rate 22 H 11/17/23 11:26 Blood Pressure 135/67 11/17/23 11:26 Pulse Oximetry 90 L 11/17/23 11:26 Oxygen Delivery Method Room Air 11/17/23 11:26 Temperature 97.6 F 11/17/23 14:53 Pulse Rate 108 H 11/17/23 14:53 Respiratory Rate 20 11/17/23 14:53 Blood Pressure 126/75 11/17/23 14:53 Pulse Oximetry 98 11/17/23 15:21 Oxygen Delivery Method Nasal Cannula 11/17/23 15:21 Oxygen Delivery Flow Rate 2 11/17/23 15:21 Medical Decision Making MDM Narrative Medical decision making narrative: 83-year-old female to the emergency department with chief complaint of palpitations and shortness of breath. Hypoxic in the 80s on room air. Otherwise stable vitals. History of congestive heart failure similar episodes per patient. She is on oxygen 2 L only at night as needed. Cardec workup is initiated. Rashida ent agrees this plan. Laboratory reviewed and noted. Her troponin is within normal limits. Her BNP is significant elevated and the chest x-ray shows some interstitial edema by my read. There is, of a possible mass on the x-ray. Per discussed with patient it sounds as though this is known. EKG without evidence ischemia. She is Rate controlled on telemetry. A dose of Lasix is given. She'll be admitted for treatment of her congestive heart failure exacerbation and acute hypoxemic respiratory failure. She has new requirement of 2L O2 by [place]. Case discussed with hospitalist who agreed to Admit to his service. Medical Records Medical records reviewed: Yes I reviewed the patient's medical records Lab Data Lab results reviewed: Yes I reviewed the patient's lab results Labs: Lab Results 11/17/23 Range/Units 11:34 WBC 8.2 (4.0-11.0) 10^3/uL RBC 3.57 L (4.20-5.40) 10^6/uL Hgb 10.3 L (12.0-16.0) g/dL Hct 34.1 L (36.0-48.0) % MCV 95.5 (81.0-99.0) fL MCH 28.9 (26.7-34.0) pg MCHC 30.2 (29.9-35.2) g/dL RDW 15.9 H (11.0-15.0) % Plt Count 254 (150-450) 10^3/uL MPV 10.1 (9.5-13.5) fL Seg Neuts % (Manual) 80.0 Band Neutrophils % 2.0 (0-5) % Lymphocytes % (Manual) 8.0 L (20.5-60.0) % Monocytes % (Manual) 8.0 (1.7-12.0) % Eosinophils % (Manual) 2.0 (0.9-7.0) % Basophils % (Manual) 0.0 L (0.2-2.0) % Neutrophils # (Manual) 6.56 H (1.4-6.5) 10^3/uL Band Neutrophils # 0.2 (0.0-0.3) 10^3/uL Lymphocytes # (Manual) 0.65 L (1.20-3.80) 10^3/uL Monocytes # (Manual) 0.65 (0.30-0.80) 10^3/uL Eosinophils # (Manual) 0.16 (0.00-0.70) 10^3/uL Basophils # (Manual) 0.00 (0.00-0.10) 10^3/uL Sodium 141 (136-145) mmol/L Potassium 3.7 (3.5-5.1) mmol/L Chloride 101 (98-107) mmol/L Carbon Dioxide 27.6 (21.0-32.0) mmol/L Anion Gap 16.1 BUN 54.0 H (7.0-18.0) mg/dL Creatinine 1.88 H (0.55-1.02) mg/dL Est GFR ( Amer) 31 L (>=60) Est GFR (Non-Af Amer) 25 L (>=60) BUN/Creatinine Ratio 28.7 Glucose 168 H (74-106) mg/dL Calcium 9.6 (8.5-10.1) mg/dL Total Bilirubin 1.3 H (0.2-1.0) mg/dL AST 17 (15-37) U/L ALT 16 (14-59) U/L Alkaline Phosphatase 108 (46-116) U/L Troponin I High Sens 26.8 (4.0-51.3) pg/mL NT-Pro-B Natriuret Pep 7627.0 H* (<=1800.0) pg/mL Total Protein 7.9 (6.4-8.2) g/dL Albumin 3.4 (3.4-5.0) g/dL Globulin 4.5 g/dL Albumin/Globulin Ratio 0.8 Imaging Data Chest x-ray: Attestation: I personally reviewed and interpreted this imaging study as follows: Radiologist's impression: ITS Impressions Chest X-Ray 11/17/23 11:36 IMPRESSION: Focal density left lung base corresponding to the density seen on chest CT 03/02/2023, new from chest x-ray 11/13/2022. Question recurrent inflammatory process, neoplasm or round atelectasis.. Consider follow-up chest CT. Other findings appear chronic and unchanged. Airspace density noted right lung base on chest CT 03/02/2023 not visualized. Electronically authenticated by: FROILAN PARKER Date: 11/17/2023 13:03 ECG Data Attestation: I personally reviewed and interpreted this ECG as follows: (Atrial fibrillation at a rate of ninety-three. No STEMI. Normal QTC) Critical Care Time Critical Care Time Critical Care Time: Yes Total Critical Care Time: 35 Attestation: Critical Care Procedure Note Authorized and Performed by: Kuldip Carrillo DO Total critical care time: 35 min Due to a high probability of clinically significant, life threatening deterioration, the patient required my highest level of preparedness to intervene emergently and I personally spent this critical care time directly and personally managing the patient. This critical care time included obtaining a history; examining the patient; pulse oximetry; ordering and review of studies; arranging urgent treatment with development of a management plan; evaluation of patient's response to treatment; frequent reassessment; and, discussions with other providers. This critical care time was performed to assess and manage the high probability of imminent, life-threatening deterioration that could result in multi-organ failure. It was exclusive of separately billable procedures and treating other patients and teaching time. Please see MDM section and the rest of the note for further information on patient assessment and treatment. Discharge Plan Discharge Chief Complaint: Arrhythmia/Palpitations Clinical Impression: Acute exacerbation of CHF (congestive heart failure), Atrial fibrillation, Respiratory failure Patient Disposition: Admitted as Observation Time of Disposition Decision: 14:50 Condition: Good
[2023-11-17 16:38] LABS: Glucometer 108 mg/dL (74-106)
[2023-11-17] MEDS: INSULIN ASPART PROT/INSULN ASP 70/30 300 UNIT/3 ML INSULN.PEN 8 UNIT SUBQ (18:15)
[2023-11-17] MEDS: ROPINIROLE HCL 0.25 MG TABLET PO (21:21)
[2023-11-17] MEDS: GABAPENTIN 100 MG CAPSULE PO (21:21)
[2023-11-17] MEDS: CARVEDILOL 6.25 MG TABLET PO (21:21)
[2023-11-17] MEDS: ATORVASTATIN CALCIUM 20 MG TABLET PO (21:21)
[2023-11-17 21:23] LABS: Glucometer 192 mg/dL (74-106)
[2023-11-17] MEDS: INSULIN ASPART 300 UNIT/3 ML PEN SUBQ (21:23)
[2023-11-18] VITALS (8 sets, daily range): BP systolic 121–137; BP diastolic 69–79; PULSE 76–150; TEMP 36.2–36.5; O2SAT 90–96
[2023-11-18] MEDS: ALPRAZOLAM 0.25 MG TABLET PO (00:24)
[2023-11-18] MEDS: GABAPENTIN 100 MG CAPSULE PO (05:32)
[2023-11-18] MEDS: LEVOTHYROXINE SODIUM 25 MCG TABLET 50 MCG PO (05:32)
[2023-11-18] MEDS: OMEPRAZOLE 40 MG CAPSULE.DR PO (05:32)
[2023-11-18 05:36] LABS: Basophils Absolute Auto 0.1 10^3/uL (0.0-0.1); Basophils Percent Auto 0.7 % (0.2-2.0); Eosinophils Absolute Auto 0.2 10^3/uL (0.0-0.7); Eosinophils Percent Auto 2.6 % (0.9-7.0); Hematocrit 30.6 % (36.0-48.0); Hemoglobin 9.5 g/dL (12.0-16.0); Immature Granulocytes Abs Auto 0.03 10^3/uL (0.00-0.03); Immature Granulocytes Pct Auto 0.4 % (0.0-0.5); Lymphocytes Absolute Auto 0.9 10^3/uL (1.2-3.8); Lymphocytes Percent Auto 12.8 % (20.5-60.0); Mean Corpuscular Hemoglobin 29.1 pg (26.7-34.0); Mean Corpuscular Volume 93.6 fL (81.0-99.0); Mean Platelet Volume 10.2 fL (9.5-13.5); Monocytes Absolute Auto 0.8 10^3/uL (0.3-0.8); Monocytes Percent Auto 10.9 % (1.7-12.0); Neutrophils Absolute Auto 5.3 10^3/uL (1.4-6.5); Neutrophils Percent Auto 72.6 % (43.0-75.0); Platelet Count 214 10^3/uL (150-450); Red Blood Count 3.27 10^6/uL (4.20-5.40); Red Cell Distribution Width 16.1 % (11.0-15.0); White Blood Count 7.3 10^3/uL (4.0-11.0)
[2023-11-18 05:40] LABS: Anion Gap 10.3; BUN Creatinine Ratio 30.5; Calcium 9.1 mg/dL (8.5-10.1); Carbon Dioxide 32.1 mmol/L (21.0-32.0); Chloride 102 mmol/L (98-107); Estimated GFR (African America 39 (>=60); Estimated GFR (Non-African Ame 32 (>=60); Glucose 126 mg/dL (74-106); Potassium 3.4 mmol/L (3.5-5.1); Sodium 141 mmol/L (136-145)
[2023-11-18] MEDS: FUROSEMIDE 40 MG/4 ML VIAL IVP (08:31)
[2023-11-18] MEDS: ASPIRIN 81 MG TABLET.DR PO (08:31)
[2023-11-18] MEDS: COLCHICINE 0.6 MG TABLET 0.599999999999999978 MG PO (08:31)
[2023-11-18] MEDS: INSULIN ASPART PROT/INSULN ASP 70/30 300 UNIT/3 ML INSULN.PEN 8 UNIT SUBQ (08:31)
[2023-11-18] MEDS: CARVEDILOL 6.25 MG TABLET PO (08:31)
[2023-11-18] MEDS: ESCITALOPRAM 10 MG TABLET PO (08:31)
[2023-11-18] MEDS: DIGOXIN 125 MCG TABLET PO (08:32)
--- NOTE | 2023-11-18 10:40 | P.HP_ITS ---
HPI H&P: HPI History of Present Illness Chief complaint: CHF Narrative: 83 y/o female to ER with palpitations and rapid heart rate. History of afib and developed rapid heart rate. Noticed SOB and tachycardia with exertion for few days and getting worse. No cough. History of CHF and aortic stenosis but denies LE edema. Started to feel lightheaded and SOB with walking and to ER. Noted afib at 100-130. SpO2 86% on room air and placed on oxygen. Tachycardia improved with oxygen. BNP elevated and chest x-ray with signs of fluid overload. Gave IV lasix and admitted. Continued IV lasix and did well. Able to wean off oxygen and normal SpO2 on room air. Resumed home medication and pulse normal at rest. Continues to have tachycardia with activity but quickly recovers at rest. SOB improved. Record showed echo 10/23/23 with EF 50-55% and moderate aortic stenosis of prostetic valve. Follows with cardiology. Opioid HPI Opioid Management Most Recent Opioid Data: Last Pain Scale 10 03/04/23 14:51 Last Pain Assessment 11/18/23 10:08 Review of Systems ROS Constitutional Denies: fever, chills or fatigue Cardiovascular Reports: palpitations, lightheadedness and shortness of breath with exertion; Denies: chest pain or edema Respiratory Reports: shortness of breath; Denies: cough or wheezing Gastrointestinal Denies: abdominal pain, nausea, vomiting or diarrhea Genitourinary Denies: painful urination [facility] Medical History (Updated 11/18/23 @ 10:47 by Alex Leon MD) Chronic heart failure with preserved ejection fraction (HFpEF) ?I50.32 - Chronic diastolic (congestive) heart failure (ICD-10) Acute thoracic back pain ?M54.6 - Pain in thoracic spine (ICD-10) Closed compression fracture of L1 vertebra ?S32.010A - Wedge compression fracture of first lumbar vertebra, initial encounter for closed fracture (ICD-10) Lung mass ?R91.8 - Other nonspecific abnormal finding of lung field (ICD-10) Compression fracture of L1 lumbar vertebra ?S32.010A - Wedge compression fracture of first lumbar vertebra, initial encounter for closed fracture (ICD-10) Acute pain of left foot ?M79.672 - Pain in left foot (ICD-10) 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 ?F32.89 - Other specified depressive episodes (ICD-10) Anxiety ?F41.9 - Anxiety disorder, unspecified (ICD-10) Diabetes ?E11.9 - Type 2 diabetes mellitus without complications (ICD-10) Atrial fibrillation ?I48.91 - Unspecified atrial fibrillation (ICD-10) Surgical History (Updated 11/18/23 @ 09:46 by Alex Leon MD) S/P ablation of atrial fibrillation ?Z98.890 - Other specified postprocedural states (ICD-10) ?Z86.79 - Personal history of other diseases of the circulatory system (ICD- 10) History of carpal tunnel surgery of right wrist ?Z98.890 - Other specified postprocedural states (ICD-10) H/O: hysterectomy ?Z90.710 - Acquired absence of both cervix and uterus (ICD-10) Aortic valve replaced ?Z95.2 - Presence of prosthetic heart valve (ICD-10) History of cholecystectomy ?Z90.49 - Acquired absence of other specified parts of digestive tract (ICD- 10) Family History (Updated 11/17/23 @ 14:56 by Aylin Nobles) Mother Family history of CHF (congestive heart failure) Father Family history of diabetes mellitus Sister Family history of diabetes mellitus Son Family history of myocardial infarction Social History (Updated 11/17/23 @ 14:57 by Aylin Nobles) Within the past year, how often did you have a drink containing alcohol: monthly or less Within the past year, how many standard drinks containing alcohol did you have on a typical day: 1 or 2 Within the past year, how often did you have six or more drinks on one occasion: never Total score: 0 Score interpretation: A score less than 3 is consistent with normal alcohol consumption. Smoking status: Former smoker Non-prescribed substance use: denies use Previous occupational history: retired Highest level of school completed/degree received: 11th grade Are you now , , , , never or living with a partner: In a typical week, how many times do you talk on the telephone with family, friends, or neighbors: 3 or more times per week How often do you get together with friends or relatives: 3 or more times per week How often do you attend pentecostalism or faith services: 4 or more times per year Do you belong to any clubs or organizations such as pentecostalism groups unions, [employer] or athletic groups, or school groups: no Total score: 2 Score interpretation: A score of greater than or equal to 2 indicates the lowest level of social isolation. Little interest or pleasure in doing things: not at all Feeling down, depressed, or hopeless: not at all Feel stressed/tense/nervous/anxious/difficulty sleeping: not at all Gender Identity: female Meds Home Medications and Allergies Home Medications ?Medication ?Instructions ?Recorded ?Confirmed ?Type alprazolam 0.25 mg tablet 0.25 mg PO Q6H PRN anxiety 11/17/23 11/17/23 History aspirin 81 mg tablet,delayed 81 mg PO DAILY 11/17/23 11/17/23 History release (Adult Low Dose Aspirin) atorvastatin 20 mg tablet 20 mg PO QPM 11/17/23 11/17/23 History bupropion HCl 150 mg tablet,12 hr 150 mg PO BID 11/17/23 11/17/23 History sustained-release carvedilol 12.5 mg tablet 6.25 mg PO BID 11/17/23 11/17/23 History colchicine 0.6 mg tablet 0.6 mg PO DAILY 11/17/23 11/17/23 History digoxin 125 mcg (0.125 mg) tablet 0.125 mg PO .QOD 11/17/23 11/17/23 History escitalopram oxalate 10 mg tablet 10 mg PO DAILY 11/17/23 11/17/23 History gabapentin 100 mg capsule 100 mg PO TID 11/17/23 11/17/23 History insulin lispro protamine-lispro 8 unit subcut BID 11/17/23 11/17/23 History 100 unit/mL (75-25) subcutaneous pen levothyroxine 50 mcg tablet 50 mcg PO QAM 11/17/23 11/17/23 History (Euthyrox) omeprazole 40 mg capsule,delayed 40 mg PO DAILY 11/17/23 11/17/23 History release ropinirole 0.25 mg tablet 0.25 mg PO QPM 11/17/23 11/17/23 History torsemide 20 mg tablet 50 mg PO DAILY 11/17/23 11/17/23 History Allergies Allergy/AdvReac Type Severity Reaction Status Date / Time codeine Allergy Intermediate Verified 03/02/23 12:08 Penicillins Allergy Intermediate Verified 03/02/23 12:08 Exam Constitutional Vital Signs, click to edit/add: Last Vital Signs Temp 97.7 F 11/18/23 08:40 Pulse 100 H 11/18/23 08:44 Resp 18 11/18/23 08:44 BP 130/79 11/18/23 08:40 Pulse Ox 90 L 11/18/23 08:40 O2 Del Method Room Air 11/18/23 08:40 O2 Flow Rate 1 11/18/23 00:00 Documenting provider has reviewed patient's vital signs: yes Common normals: no apparent distress, oriented x3 and alert HENMT Common normals: normocephalic Respiratory Common normals: normal respiratory effort and clear to auscultation bilaterally Cardio Rhythm: abnormal rhythm irregularly irregular Heart sounds: murmur (IV/ ) systolic GI Common normals: Normal to inspection, nondistended, normoactive bowel sounds present and non-tender Extremity Common normals: no pedal edema Results Labs Labs: Short CBC 11/17/23 11/18/23 Range/Units 11:34 05:07 WBC 8.2 7.3 (4.0-11.0) 10^3/uL Hgb 10.3 L 9.5 L (12.0-16.0) g/dL Hct 34.1 L 30.6 L (36.0-48.0) % Plt Count 254 214 (150-450) 10^3/uL BMP 11/17/23 11/18/23 11:34 05:07 Sodium 141 141 Potassium 3.7 3.4 L Chloride 101 102 Carbon Dioxide 27.6 32.1 H BUN 54.0 H 47.0 H Creatinine 1.88 H 1.54 H Glucose 168 H 126 H Calcium 9.6 9.1 Liver Function 11/17/23 Range/Units 11:34 Total Bilirubin 1.3 H (0.2-1.0) mg/dL AST 17 (15-37) U/L ALT 16 (14-59) U/L Alkaline Phosphatase 108 (46-116) U/L Albumin 3.4 (3.4-5.0) g/dL Pulse Oximetry Attestation: I have reviewed the pertinent pulse oximetry results. ECG Attestation: ?I have reviewed the pertinent ECG results. Imaging Chest x-ray: Attestation: I have reviewed the pertinent imaging results. 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 Responded well to IV lasix and hypoxia resolved. Maintaining normal SpO2 on room air. Continues to have tachycardia with exertion and increase coreg. Add aldactone. Discharge home. Continue other home medication as directed. Follow up with cardiology in 2-5 days.
[2023-11-18] MEDS: CARVEDILOL 3.125 MG TABLET PO (10:59)
--- NOTE | 2023-11-20 13:27 | CM.DCFOLLOWU ---
Person spoke with: Jenni How are you feeling? Feeling much better How is your pain? N/A Did you understand your discharge instructions? yes Do you have any questions about your discharge instructions? no Were you given any prescriptions at discharge? yes Were you able to get your prescriptions filled? I did Do you understand how to take your medications as ordered? I do Do you have any questions about your follow up appointment and do you plan to keep your follow up appointment? Cardiology Appt made. Is there anything else that you would like to discuss? No. Questions/Comments/Concerns/Other:
== END 2023-11-18 11:30 | disposition home or self-care (01) ==
LOC: ER 12:11 → MS 14:48 → ICU 19:17
PROVIDERS: Admitting Provider Family Medicine; Emergency Provider Student in an Organized Health Care Education/Training Program; PCP Internal Medicine; Visit Provider Family Medicine
DX: I11.0 Hypertensive heart disease with heart failure (principal); I50.33 Acute on chronic diastolic (congestive) heart failure; I48.19 Other persistent atrial fibrillation; R09.02 Hypoxemia; I35.0 Nonrheumatic aortic (valve) stenosis; E11.65 Type 2 diabetes mellitus with hyperglycemia; E03.9 Hypothyroidism, unspecified; Z79.82 Long term (current) use of aspirin; Z79.899 Other long term (current) drug therapy; Z79.4 Long term (current) use of insulin; Z79.890 Hormone replacement therapy; Z87.891 Personal history of nicotine dependence; Z95.2 Presence of prosthetic heart valve; Z90.710 Acquired absence of both cervix and uterus; Z90.49 Acquired absence of other specified parts of digestive tract; Z98.890 Other specified postprocedural states; F41.9 Anxiety disorder, unspecified; F32.89 Other specified depressive episodes
CPT/HCPCS: 36415; 71045; 80048; 80053; 82948; 83880; 84484; 85007; 85025; 85027; 93005; 94761; 96374; 96376; 99285; G0378

== ENCOUNTER 2023-11-19 12:11 | Outpatient (OUT) | payer MEDICARE, OTHER, SELFPAY ==
--- OUTSIDE RECORDS SUMMARY | 2023-11-19 12:34 | XMS_ITS | CCD ---
Author Organization [facility] Care Team Providers Care Driver/Sales Workers Name Role Phone GRETTA OMALLEY Admitting Unavailable GRETTA OMALLEY Attending Unavailable JASVIR LEÓN Referring Unavailable JASVIR LEÓN Primary Care Unavailable Mariam Ward Unavailable DR JASVIR LEÓN Primary Care Unavailable JOSEFINA CHAO Consulting Unavailable JOSEFINA CHAO Attending Unavailable JOSEFINA CHAO Admitting Unavailable KHARI, DR ISRAEL Primary Care Unavailable JOSEFINA CHAO Attending Unavailable JOSEFINA CHAO Admitting Unavailable ELSIE ., DR MEJIA Primary Care Unavailable JOSEFINA CHAO Attending Unavailable JOSEFINA CHAO Admitting Unavailable DR JASVIR LEÓN Primary Care Unavailable DAWOOD PEDROZA Consulting Unavailable DAWOOD PEDROZA Attending Unavailable DAWOOD PEDROZA Admitting Unavailable DR JASVIR LEÓN Primary Care Unavailable DAWOOD PEDROZA Admitting Unavailable DAWOOD PEDROZA Consulting Unavailable DAWOOD PEDROZA Attending Unavailable ELSIE ., DR MEJIA Attending Unavailable HOAlexey ., DR MEJIA Admitting Unavailable HOAlexey .DR MEJIA Primary Care Unavailable HOAlexey ., DR MEJIA Consulting Unavailable PAY ., DR TESFAYE Consulting Unavailable SHAIKH Selam SCHMIDT Consulting Unavailable JENNY MARQUEZ Consulting Unavailable DR JASVIR LEÓN Primary Care Unavailable NICK ., DR CORNEJO Consulting Unavailable NIKC ., DR CORNEJO Attending Unavailable NICK ., DR CORNEJO Admitting Unavailable TYLER MENENDEZ Consulting Unavailable CALLI ., DR SHAYY Azul Consulting Unavailable CALLI ., DR SHAYY Azul Attending Unavailable KHARI, DR ISRAEL Primary Care Unavailable CALLI ., DR SHAYY Azul Admitting Unavailable GALO, DR TONIA Mendiola Consulting Unavailwagner HAWKINS, DR MEENA Boucher Consulting Unavailable VANESSA DALLAS Consulting Unavailable BRENT PERALTA Consulting Unavailable KHARI, DR ISRAEL Primary Care Unavailable ELSIE ., DR MEJIA Attending Unavailable ELSIE ., DR MEJIA Admitting Unavailable ELSIE ., DR MEJIA Consulting Unavailable HAY ., DR CORNEJO Consulting Unavailable SADIE GARCIA Consulting Unavailable MEENA WOOTEN Unavailable AMANDA DANIELS Consulting Unavailable FELIPA ARANDA Consulting Unavailable GRETTA OMALLEY Consulting Unavailable SHAHRAM, GRETTA Attending Unavailable SHAHRAM, GRETTA Admitting Unavailable KHARI, DR ISRAEL Primary Care Unavailable DYAN, BRENT Consulting Unavailable DYAN, BRENT Attending Unavailable DYAN, BRENT Admitting Unavailable KHARI, DR ISRAEL Primary Care Unavailable DYAN, BRENT Consulting Unavailable DYAN, BRENT Attending Unavailable DYAN, BRENT Admitting Unavailable KHARI, DR ISRAEL Primary Care Unavailable YRIS, FARZANEH Consulting Unavailable YRIS, FARZANEH Attending Unavailable ELSIE ., DR MEJIA Primary Care Unavailable YRIS, FARZANEH Admitting Unavailable LEÓN, DR ISRAEL Primary Care Unavailable WEST, DR MEENA Boucher Consulting Unavailable VERNA, AHMAD Attending Unavailable VERNA, AHMAD Admitting Unavailable VERNA, AHMAD Consulting Unavailable Jasvir León MD Primary Care Provider BAHKD Judd Admitting Unavailable BAHKD Judd Attending Unavailable JASVIR LEÓN B Primary Care Unavailable BAHKD Judd Attending Unavailable JASVIR LEÓN B Primary Care Unavailable BAHKD Judd M Admitting Unavailable JASVIR LEÓN B Primary Care Unavailable BAHKD Judd Attending Unavailable JASVIR LEÓN B Primary Care Unavailable BAHKD Judd M Admitting Unavailable JASVIR LEÓN Attending Unavailable DAWOOD PEDROZA Attending Unavailable RALF FERGUSON Referring Unavailable JASVIR LEÓN Attending Unavailable SARAH RODRIGUEZ Attending Unavailable ODALYS RUSSO Attending Unavailable JASVIR LEÓN B Referring Unavailable RAMY IBRAHIM Attending Unavailable DYAN, BRENT Attending Unavailable FILIBERTO PERALTAA Referring Unavailable JOSEFINA CHAO Attending Unavailable Allergies Allergy Classification Reported Allergen(s) Allergy Type Date of Onset Reaction(s) Facility (4 sources) Codeine; Translations: [CODEINE] Drug Allergy 4 [facility] Repository (4 sources) Penicillins; Translations: [PENICILLINS] Drug allergy (disorder) 2 [facility] Repository (1 source) penicillian Propensity to adverse reactions rash [email or web address] [facility] Other (1 source) codiene Propensity to adverse reactions abdominal pain [facility] Other (2 sources) sacubitril / valsartan Drug Allergy 2 [facility] Repository (1 source) Codeine Drug Allergy 3 Other (See Comments) [facility] (1 source) Penicillins Propensity to adverse reactions to drug 3 Rash [facility] Work Phone: (2 sources) sacubitril / valsartan; Translations: [SACUBITRIL-ARJUN SARTAN] Drug Allergy 2 Rash [facility] Medications Current Medications Medication Drug Class(es) Dates Sig (Normalized) Sig (Original) acetaminophen 325 mg oral tablet (1 source) take 2 tablets by mouth every six hours as needed for pain acetaminophen (TYLENOL) 325 MG tablet Take 2 tablets by mouth every 6 hours as needed for Pain 0 Active acetaminophen 325 mg / HYDROcodone bitartrate 5 mg oral tablet (1 source) Opioid Agonist take 1 tablet by mouth every six hours as needed for pain HYDROcodone-acetamino phen (NORCO) 5-325 MG per tablet Indications: Pain Take 1 tablet by mouth every 6 hours as needed for Pain. Indications: Pain 0 Active ALPRAZolam 0.25 mg oral tablet (2 sources) Benzodiazepine take 1 tablet by mouth every six hours as needed for anxiety ALPRAZolam (XANAX) 0.25 MG tablet Take 1 tablet by mouth every 6 hours as needed for Anxiety. 0 Active take 1 tablet by mouth every eig ht hours Xanax 0.25 MG 1 tablet Orally Three times a day Active amLODIPine 5 mg oral tablet (1 source) Dihydropyridine Calcium Channel Soumya take 1 tablet by mouth once daily amLODIPine (NORVASC) 5 MG tablet Take 1 tablet by mouth daily 0 Active aspirin 81 mg chewable tablet (1 source) Platelet Aggregation Inhibitor, Nonsteroidal Anti-inflammatory Drug take 1 tablet by mouth once daily aspirin 81 MG chewable tablet Take 1 tablet by mouth daily 0 Active atorvastatin 20 mg oral tablet (1 source) HMG-CoA Reductase Inhibitor take 1 tablet by mouth once daily atorvastatin (LIPITOR) 20 MG tablet Take 1 tablet by mouth nightly 0 Active 12 hr buPROPion hydrochloride 150 mg extended release oral tablet (2 sources) Aminoketone take 1 tablet by mouth twice daily buPROPion (WELLBUTRIN SR) 150 MG extended release tablet Take 1 tablet by mouth 2 times daily 0 Active CALCIUM CARB-CHOLECALCIFEROL PO (1 source) take 600 mg by mouth once daily CALCIUM CARB-CHOLECALCIFEROL PO Take 600 mg by mouth daily 600-200 mg-unit 0 Active carvedilol 12.5 mg oral tablet (2 sources) alpha-Adrenergic Soumya, beta-Adrenergic Soumya take 1 tablet by mouth twice daily at mealtime carvedilol (COREG) 12.5 MG tablet Take 1 tablet by mouth 2 times daily (with meals) 0 Active digoxin 0.125 mg oral tablet (1 source) Cardiac Glycoside take 1 tablet by mouth once daily digoxin (LANOXIN) 125 MCG tablet Take 1 tablet by mouth daily 0 Active dilTIAZem malate 240 mg oral tablet (1 source) Calcium Channel Soumya take 1 capsule b y mouth once daily in the morning Dilacor XR 240 MG 1 capsule on an empty stomach in the morning Orally Once a day for 30 day(s) Active escitalopram 10 mg oral tablet (2 sources) Serotonin Reuptake Inhibitor take 1 tablet by mouth once daily escitalopram (LEXAPRO) 10 MG tablet Take 1 tablet by mouth daily 0 Active take 0.5 tablet by m outh every twenty-four hours Lexapro 20 MG 0.5 tablet Orally Once a day for 30 day(s) Active furosemide 20 mg oral tablet (1 source) Loop Diuretic take 1 tablet by mouth every twenty-four hours Lasix 20 MG 1 tablet Orally Once a day for 30 day(s) Active gabapentin 100 mg oral capsule (1 source) Anti-epileptic Agent take 1 capsule by mouth three times daily gabapentin (NEURONTIN) 100 MG capsule Take 1 capsule by mouth 3 times daily. 0 Active insulin lispro 25 unt/ml / insulin lispro protamine, human 75 unt/ml injectable suspension (1 source) Insulin Analog insulin lispro protamine & lispro (HUMALOG MIX 75/25) (75-25) 100 UNIT per ML SUSP injection vial Inject 10 Units into the skin 2 times daily (with meals) Morning and evening with meals 0 Active levothyroxine sodium 0.05 mg oral tablet (1 source) l-Thyroxine take 1 tablet by mouth once daily levothyroxine (SYNTHROID) 50 MCG tablet Take 1 tablet by mouth Daily 0 Active lisinopril 20 mg oral tablet (1 source) Angiotensin Converting Enzyme Inhibitor take 1 tablet by mouth once daily lisinopril (PRINIVIL;ZESTRIL) 20 MG tablet Take 1 tablet by mouth daily 0 Active omeprazole 40 mg delayed release oral capsule (1 source) Proton Pump Inhibitor take 1 capsule by mouth once daily omeprazole (PRILOSEC) 40 MG delayed release capsule Take 1 capsule by mouth daily 0 Active pantoprazole 40 mg delayed release oral tablet (1 source) Proton Pump Inhibitor take 1 tablet by mouth every twenty-four hours Protonix 40 MG 1 tablet Orally Once a day for 30 day(s) Active rOPINIRole 0.25 mg oral tablet (1 source) Nonergot Dopamine Agonist take 1 tablet by mouth once daily rOPINIRole (REQUIP) 0.25 MG tablet Take 1 tablet by mouth nightly 0 Active tiZANidine 4 mg oral tablet (1 source) Central alpha-2 Adrenergic Agonist take 1 tablet by mouth every four hours as needed for pain tiZANidine (ZANAFLEX) 4 MG tablet Indications: Pain Take 1 tablet by mouth every 4 hours as needed Indications: Pain 0 Active torsemide 20 mg oral tablet (1 source) Loop Diuretic take 1 tablet by mouth once daily torsemide (DEMADEX) 20 MG tablet Take 1 tablet by mouth daily 0 Active Tramadol & Dietary Manage Prod 50 MG (1 source) Tramadol & Dieta ry Manage Prod 50 MG as directed Orally Active Completed/Discontinued Medications Medication Drug Class(es) Dates Sig (Normalized) Sig (Original) cephalexin 500 mg oral capsule (1 source) Cephalosporin Antibacterial Start: 03-31-2014 take 1 capsule by mouth three times daily Cephalexin 500 MG 1 capsule Orally 3 times daily for 5 days Mar, Not-Taking clindamycin 300 mg oral capsule (1 source) Lincosamide Antibacterial Start: 09-01-2013 take 1 capsule by mouth every twelve hours Clindamycin HCl 300 MG 1 capsule By Mouth bid for 7 day(s) Aug, Not-Taking Mupirocin (1 source) RNA Synthetase Inhibitor Antibacterial Start: 03-31-2014 Bactroban 2 % 1 application to affected area Externally Three times a day for 21 days Mar, Not-Taking Problems Active Problems Problem Classification Problem Date Documented Date Episodic/Chronic Acute and unspecified renal failure (1 source) Acute kidney failure, unspecified; Translations: [ACUTE KIDNEY FAILURE UNSPECIFIED] Onset: 3 Episodic Allergic reactions (3 sources) Allergy status to penicillin; Translations: [Allergy status to other drugs, medicaments and biological substances status] Onset: 3 Episodic Asthma (1 source) Unspecified asthma, uncomplicated; Translations: [UNSPECIFIED ASTHMA UNCOMPLICATED] Onset: 3 Chronic Bacterial infection; unspecified site (1 source) Unspecified Escherichia coli [E. coli] as the cause of diseases classified elsewhere; Translations: [UNS E COLI CAUSE DX CLASS ELSEWHERE] Onset: 3 Episodic Cardiac dysrhythmias (1 source) Unspecified atrial fibrillation; Translations: [UNSPECIFIED ATRIAL FIBRILLATION] Onset: 3 Chronic Cardiac dysrhythmias (1 source) Bradycardia, unspecified; Translations: [BRADYCARDIA UNSPECIFIED] Onset: 3 Episodic Cataract (9 sources) Presence of intraocular lens; Translations: [Age-related nuclear cataract, right eye] Onset: 2 Chronic Chronic kidney disease (3 sources) Chronic kidney disease; Translations: [CHRONIC KIDNEY DISEASE STAGE 3B] Onset: 2 Congestive heart failure; nonhypertensive (16 sources) Acute combined systolic (congestive) and diastolic (congestive) heart failure; Translations: [Acute on chronic combined systolic (congestive) and diastolic (congestive) heart failure] Onset: 2 Chronic Deficiency and other anemia (1 source) Iron deficiency anemia, unspecified; Translations: [IRON DEFICIENCY ANEMIA UNSPECIFIED] Onset: 3 Episodic Diabetes mellitus with complications (2 sources) Type 2 diabetes mellitus with diabetic chronic kidney disease; Translations: [Type 2 diabetes mellitus with hyperglycemia] Onset: 2 Chronic Diabetes mellitus without complication (1 source) Type 2 diabetes mellitus without complications; Translations: [TYPE 2 DM WITHOUT COMPLICATIONS] Onset: 2 Chronic Disorders of lipid metabolism (1 source) Pure hypercholesterolemia, unspecified; Translations: [PURE HYPERCHOLESTEROLEMIA UNSPEC] Onset: 3 Chronic Esophageal disorders (1 source) Gastro-esophageal reflux disease without esophagitis; Translations: [GERD WITHOUT ESOPHAGITIS] Onset: 3 Chronic Essential hypertension (1 source) Essential (primary) hypertension; Translations: [ESSENTIAL PRIMARY HYPERTENSION] Onset: 2 Chronic Fluid and electrolyte disorders (2 sources) Hyperkalemia; Translations: [Dehydration] Onset: 2 Episodic Gout and other crystal arthropathies (1 source) Gout, unspecified; Translations: [GOUT UNSPECIFIED] Onset: 2 Chronic Heart valve disorders (11 sources) Presence of prosthetic heart valve; 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, aortic and tricuspid valves] Onset: 2 Chronic Hypertension with complications and secondary hypertension (8 sources) Hypertensive heart disease with heart failure; Translations: [Hypertensive heart and chronic kidney disease with heart failure and stage 1 through stage 4 chronic kidney disease, or unspecified chronic kidney disease] Onset: 2 Chronic Menopausal disorders (1 source) Hormone replacement therapy; Translations: [HORMONE REPLACEMENT THERAPY] Onset: 3 Episodic Mood disorders (1 source) Mood disorders; Translations: [DEPRESSION UNSPECIFIED] Onset: 3 Other aftercare (1 source) nursing home (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 of insulin; Translations: [JAIL CURRENT USE OF INSULIN] Onset: 3 Episodic Other aftercare (1 source) director long term care (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 of aspirin; Translations: [CUSTOMER MARKETING MANAGER CURRENT USE OF ASPIRIN] Onset: 3 Episodic Other aftercare (1 source) Other half-way (current) drug therapy; Translations: [OTH CUSTOMER MARKETING MANAGER CURRENT DRUG THERAPY] Onset: 3 Episodic Other eye disorders (1 source) Cataract extraction status, left eye; Translations: [CATARACT EXTRACTION STATUS LEFT EYE] Onset: 3 Episodic Other eye disorders (1 source) Cataract extraction status, right eye; Translations: [CATARACT EXTRACTION STATUS RT EYE] Onset: 3 Episodic Other fractures (1 source) Wedge compression fracture of T11-T12 vertebra, initial encounter for closed fracture; Translations: [Wedge compression fracture of T11-T12 vertebra, initial encounter for closed fracture] Onset: 3 Episodic Other lower respiratory disease (1 source) Personal history of pneumonia (recurrent); Translations: [PERSONAL HX OF PNEUMONIA RECURRENT] Onset: 3 Episodic Other lower respiratory disease (4 sources) Dyspnea, unspecified; Translations: [DYSPNEA UNSPECIFIED] Onset: 3 Episodic Other lower respiratory disease (1 source) Personal history of other diseases of the respiratory system; Translations: [PERS HX OTH DZ RESPIRATORY SYSTEM] Onset: 3 Episodic Other upper respiratory infections (1 source) Chronic frontal sinusitis; Translations: [Sinusitis chronic, frontal] Chronic Pathological fracture (3 sources) Pathological fracture of vertebra due to osteoporosis; Translations: [Age-related osteoporosis with current pathological fracture, vertebra(e), initial encounter for fracture] Onset: 3 05-09-2023 Episodic Poisoning by other medications and drugs (1 source) Poisoning by cardiac-stimulant glycosides and drugs of similar action, accidental (unintentional), initial encounter; Translations: [PSN CARD GLYCOS RX SIM ACT ACC INIT] Onset: 3 Episodic Residual codes; unclassified (1 source) Acquired absence of both cervix and uterus; Translations: [ACQUIRED ABSENCE BOTH CERVIX AND UTERUS] Onset: 3 Episodic Residual codes; unclassified (1 source) Acquired absence of other specified parts of digestive tract; Translations: [ACQ ABSENCE OTH PART DIGESTV TRACT] Onset: 3 Episodic Residual codes; unclassified (1 source) Other specified postprocedural states; Translations: [OTH SPECIFIED POSTPROCEDURAL STATES] Onset: 3 Episodic Residual codes; unclassified (1 source) Family history of ischemic heart disease and other diseases of the circulatory system; Translations: [FAM HX ISCHEMIC HRT DZ OTH DZ CIRC] Onset: 3 Episodic Residual codes; unclassified (1 source) Family history of diabetes mellitus; Translations: [FAMILY HISTORY OF DIABETES MELLITUS] Onset: 3 Episodic Respiratory failure; insufficiency; arrest (adult) (1 source) Dependence on supplemental oxygen; Translations: [DEPENDENCE ON SUPPLEMENTAL OXYGEN] Onset: 3 Chronic Screening and history of mental health and substance abuse codes (1 source) Personal history of nicotine dependence; Translations: [PERSONAL HISTORY OF NICOTINE DEPEND] Onset: 3 Episodic Spondylosis; intervertebral disc disorders; other back problems (3 sources) Lumbar spondylosis; Translations: [Spondylosis without myelopathy or radiculopathy, lumbar region] Onset: 4 08-07-2023 Chronic Spondylosis; intervertebral disc disorders; other back problems (2 sources) Lumbar radiculitis; Translations: [Radiculopathy, lumbar region] Onset: 3 05-29-2023 Episodic Thyroid disorders (9 sources) Hypothyroidism, unspecified; Translations: [Thyrotoxicosis, unspecified without thyrotoxic crisis or storm] Onset: 2 Chronic Unclassified (1 source) PERSONAL HISTORY OF COVID-19; Translations: [PERSONAL HISTORY OF COVID-19] Onset: 3 Unclassified (1 source) CONTACT W/AND (SUSP) EXPOS COVID-19; Translations: [CONTACT W/AND (SUSP) EXPOS COVID-19] Onset: 3 Unclassified (2 sources) Permanent atrial fibrillation; Translations: [Permanent atrial fibrillation] Onset: 3 Unclassified (2 sources) Other persistent atrial fibrillation; Translations: [Other persistent atrial fibrillation] Onset: 3 Urinary tract infections (1 source) Urinary tract infection, site not specified; Translations: [UTI SITE NOT SPECIFIED] Onset: 3 Episodic Past or Other Problems Problem Classification Problem Date Documented Da te Episodic/Chronic Immunizations and screening for infectious disease (1 source) Contact with and (suspected) exposure to other viral communicable diseases Onset: 06-06-2021 Resolved: 06-06-2021 Episodic Nausea and vomiting (1 source) Nausea with vomiting, unspecified; Translations: [NAUSEA WITH VOMITING UNSPECIFIED] Onset: 05-08-2022 Episodic Open wounds of extremities (1 source) Open wound of finger without complication; Translations: [Thumb laceration] Episodic Other connective tissue disease (4 sources) Pain in left foot; Translations: [PAIN IN LEFT FOOT] Onset: 02-12-2022 Episodic Other gastrointestinal disorders (1 source) Diarrhea, unspecified; Translations: [DIARRHEA UNSPECIFIED] Onset: 05-08-2022 Episodic Other lower respiratory disease (1 source) Cough; Translations: [Cough] Episodic Other lower respiratory disease (1 source) Dyspnea; Translations: [Shortness of breath] Episodic Other nutritional; endocrine; and metabolic disorders (1 source) Abnormal weight loss; Translations: [ABNORMAL WEIGHT LOSS] Onset: 04-14-2022 Episodic Other screening for suspected conditions (not mental disorders or infectious disease) (2 sources) Finding of other specified substances, not normally found in blood; Translations: [Finding of other specified substances, not normally found in blood] Onset: 11-22-2022 Episodic Other upper respiratory infections (1 source) Acute upper respiratory infection, unspecified Onset: 06-06-2021 Resolved: 06-06-2021 Episodic Pneumonia (except that caused by tuberculosis or sexually transmitted disease) (3 sources) Pneumonia, unspecified organism; Translations: [PNEUMONIA UNSPECIFIED ORGANISM] Onset: 04-30-2022 Episodic Results Test Name Value Interpretation Reference Range Facility 36on 11-16-2023 36 Regarding echo performed on 10/23/2023: MD Mariaa Fernandes MA; Farzaneh Arndt NP [place], she sees you soon, echo is consistent with volume overload, I could consider intensification of diuretics before determining the need for FRAA [facility] XR COMPARISON OF OUTSIDE HIRAL MSon 08-07-2023 XR COMPARISON OF OUTSIDE FILMS RADRPT There is no result for this study. This is a placeholder for comparison films only. Final result Normal [facility] XR COMPARISON OF OUTSIDE HIRAL MSon 05-29-2023 XR COMPARISON OF OUTSIDE FILMS RADRPT There is no result for this study. This is a placeholder for comparison films only. Final result Normal [facility] Office Visiton 05-14-2023 Follow-up visit [id number] Jenni Villegas 1940 F Date Provider Department Center 05/14/2023 [id number] IBRAHIM CARD [facility] Family History Problem Relation Age of Onset Diabetes Father Heart failure Father Other Other Family Status - Relation Status Age at Father Other Level of Service:58404 IA OFFICE/OUTPATIENT ESTABLISHED MOD MDM 30-39 MIN Normal [facility] FLUORO FOR SURGICAL PROCEDUR ESon 05-09-2023 FLUORO FOR SURGICAL PROCEDURES RADRPT Radiology exam is complete. No Radiologist dictation. Please follow up with ordering provider. Final result Normal [facility] SURGICALon 05-09-2023 SURGICAL [place] [facility] [id number] Assoc. Page [address] [place] [address] PROC: 05/09/2023 [facility] RECV: 05/11/[address] RPTD: 05/16/2023 [place] [address] LOC: LAY ACCT: [id number] SEX: F : 1940 AGE: 83 Y PATHOLOGY REPORT ATTN: NON-STAFF PHYSICIAN REQ: KD MACIAS Copies To: JASVIR LEÓN Clinical Information: AGE-RELATED OSTEOPOROSIS WITH CURRENT PATHOLOGICAL FRACTURE OF VERTEBRA, INITIAL ENCOUNTER FINAL DIAGNOSIS: Bone, T12 vertebral body, needle core biopsy: Bone and marrow with fracture site changes. See microscopic description. Specimen: BIOPSY OF BONE, T12 VERTEBRAL BODY Gross Examination: The container is labeled Jenni Villegas, T12 vertebral body biopsy. Received in formalin are two cylindrical fragments of bone, each 0.2 cm in diameter and measuring 0.9 and 1.6 cm in length. The specimen is entirely submitted after light decalcification. 1 ns. MTK/DKR:[id number] Microscopic Examination: The specimen consists of 2 needle core biopsies of bone and marrow. There are areas of fibrosis and bony remodeling consistent with fracture site changes. The marrow demonstrates trilineage hematopoiesis. The marrow appears hypercellular for age. To investigate for a subtle infiltrate, immunohistochemistry is performed for pankeratin, CD138, CD3, and CD20 with adequate controls. The CD3 highlights scattered T cells and the CD20 highlights small clusters of B cells. This favors benign lymphoid aggregates. The pankeratin stain is negative. The CD138 demonstrates scattered plasma cells. [place] and lambda surface immunoglobulin light chain LALO is performed with adequate controls. The kappa and lambda stains demonstrate a polytypic plasma cell population. Overall, there is no evidence of an atypical infiltrate. Malignancy is not identified. *This test was developed and its performance characteristics determined by [facility]. It has not been cleared or approved by the U.S. Food and Drug Administration. Pursuant to the requirements of CLIA, this laboratory has established and verified the test's accuracy and precision. Additional information about this type of test is available upon request. [id number] [phone] [id number] INDY PLATT M.D., F.C.A.P. [place]/ [facility] Printed on: 05/16/2023 [address] [place], [place] [address] Original print date: 05/16/2023 Normal [facility] Requeston 05-09-2023 CANDICE SEE BELOW [facility] Comment on above: Order Comment: Age-r elated osteoporosis with current pathological fracture of vertebra, initial encounter ([facility]) [M80.08XA] Pre-op diagnosis: T12 Vertebral Body Biopsy Result Comment: [facility] V[place]GASJENNI [id number]\Assoc. Page 1 of 1\X0D0A\[address]\X0D0A\[place] [address]\X0D0A\ PROC: 05/09/2023\X0D0A\NVML/[facility] RECV: 05/11/2023\X0D0A\[address] RPTD: 05/16/2023\X0D0A\[place] [address]\X0D0A\ LOC: WYA\X0D0A\ ACCT: [id number] SEX: F\X0D0A\ : 1940 AGE: 83 Y\X0D0A\X0D0A\ PATHOLOGY REPORT\X0D0A\ ATTN: NON-STAFF PHYSICIAN\X0D0A\ REQ: KD BAHN\X0D0A\X0D0A\X0D0A\Copies To: JASVIR LEÓN\X0D0A\X0D0A\X0D0A\Clinical Information: AGE-RELATED OSTEOPOROSIS WITH CURRENT\X0D0A\PATHOLOGICAL FRACTURE OF VERTEBRA, INITIAL ENCOUNTER\X0D0A\X0D0A\FINAL DIAGNOSIS:\X0D0A\Bone, T12 vertebral body, needle core biopsy:\X0D0A\ Bone and marrow with fracture site changes.\X0D0A\ See microscopic description.\X0D0A\X0D0A\Specimen:\X0D0A\BIOPSY OF BONE, T12 VERTEBRAL BODY\X0D0A\X0D0A\X0D0A\Gross Examination:\X0D0A\The container is labeled Jenni Villegas, T12 vertebral body biopsy.\X0D0A\Received in formalin are two cylindrical fragments of bone, each 0.2 cm\X0D0A\in diameter and measuring 0.9 and 1.6 cm in length. The specimen is\X0D0A\entirely submitted after light decalcification. 1 ns.\X0D0A\MTK/DKR:v_aldos_i\X0D0A\X0D0A\Microscopic Examination:\X0D0A\The specimen consists of 2 needle core biopsies of bone and marrow.\X0D0A\There are areas of fibrosis and bony remodeling consistent with\X0D0A\fracture site changes. The marrow demonstrates trilineage\X0D0A\hematopoiesis. The marrow appears hypercellular for age. To\X0D0A\investigate for a subtle infiltrate, immunohistochemistry is performed\X0D0A\for pankeratin, CD138, CD3, and CD20 with adequate controls. The CD3\X0D0A\highlights scattered T cells and the CD20 highlights small clusters of\X0D0A\B cells. This favors benign lymphoid aggregates. The pankeratin stain\X0D0A\is negative. The CD138 demonstrates scattered plasma cells. [place] and\X0D0A\lambda surface immunoglobulin light chain LALO is performed with\X0D0A\adequate controls. The kappa and lambda stains demonstrate a polytypic\X0D0A\plasma cell population. Overall, there is no evidence of an atypical\X0D0A\infiltrate. Malignancy is not identified.\X0D0A\X0D0A\*This test was developed and its performance characteristics determined\X0D0A\by [facility]. It has not been cleared or\X0D0A\approved by the U.S. Food and Drug Administration. Pursuant to the\X0D0A\requirements of CLIA, this laboratory has established and verified the\X0D0A\test's accuracy and precision. Additional information about this type\X0D0A\of test is available upon request.\X0D0A\X0D0A\744[address]\X0D0A\[address]\X0D0A\04995 x 3\X0D0A\47449\X0D0A\45092\X0D0A\X0D0A\X0D0A\X0D0A\ \X0D0A\ INDY PLATT M.D., F.C.A.P.\X0D0A\X0D0A\X0D0A\[facility]/ [facility] Printed on: 05/16/2023\X0D0A\[address]\X0D0A\[place], [place] [address]\X0D0A\Original print date: 05/16/2023 Performed By: #### 1 [id number] #### [facility] See Report 36on 02-04-2023 36 I reviewed labs from 02/02/2023. Please have her increased torsemide further to a total 60 mg daily (she can do 30 mg bid) and get same repeat labs in 2-3 weeks. Also please make sure she follows with Dr León regarding her low glucose. Normal [facility] Telephoneon 02-04-2023 Telephone [id number] Jenni Villegas 1940 F Date Provider Department Center 02/04/2023 JOSEFINA STEIN SYMONE Stark Family History Problem Relation Age of Onset Diabetes Father Heart failure Father Other Other Family Status - Relation Status Age at Father Other Normal [facility] Office Visiton 12-28-2022 Follow-up visit [id number] Jenni Villegas 1940 Date Provider Department Center 12/28/2022 JOSEFINA STEIN Family History Problem Relation Age of Onset Diabetes Father Heart failure Father Other Other Family Status - Relation Status Age at Father Other Level of Service:56609 [place] OFFICE/OUTPATIENT ESTABLISHED MOD MDM 30-39 MIN Reason for Visit and Comments: Follow-up [849960] [facility] HPon 12-22-2022 HP H&P reviewed. The patient was examined and there are no changes to the H&P. FARA needs to be done to assess the aortic valve. The risks, benefits, and alternatives were discussed with the patient who has elected to proceed with the procedure. Yanet Rabago MD Market Developer - PGY4 [facility] NURSNOTEon 12-22-2022 NURSNOTE Bedside swallow stud y performed and passed. RN educated pt on d/c instructions. RN encouraged pt to voice any questions or concerns. Pt verbalizes no questions or concerns at this time. Pt was wheeled off of unit with all of belongings. [facility] Telephoneon 12-18-2022 Telephone [id number] Jenni Villegas 1940 Provider Department Center 12/18/2022 CHAYO TRAN C [facility] Family History Problem Relation Age of Onset Diabetes Father Heart failure Father Other Other Family Status - Relation Status Age at Father Other [facility] Telephoneon 12-15-2022 Telephone [id number] Jenni Villegas 1940 Provider Department Center 12/15/2022 JOHNY ESPINOSA HVC [facility] Family History Problem Relation Age of Onset Diabetes Father Heart failure Father Other Other Family Status - Relation Status Age at Father Other [facility] 36on 12-07-2022 36 Please let patient k now her recent labs show her kidney function is improved from her recent admission, is down to probably her baseline. Her digoxin level is also okay. Continue current medication regimen. Continue with scheduled FARA and follow-up appt with Dr. Chao. Thanks [facility] Telephoneon 12-07-2022 Telephone [id number] Jenni Villegas 1940 Provider Department Center 12/07/2022 BRENT PÉREZaresean Mejia Family History Problem Relation Age of Onset Diabetes Father Heart failure Father Other Other Family Status - Relation Status Age at Father Other [facility] DIGOXINon 12-06-2022 DIG <0.2 Critically low 0.9-2.0 [facility] Comment on above: Performed By: #### B LDCX2 #### [facility] [address] [address] [address] Lisa Martinez PROF CHEM 8 (BAS METB)on Anion gap [Moles/Vol] 9.6 mmol/L Normal [facility] Comment on above: Performed By: #### T SHRFT4, BMP ####[facility] [address] [address]Dr. Lisa Martinez Calcium [Mass/Vol] 9.0 mg/dL Normal 8.5-10.1 [facility] Comment on above: Performed By: #### T SHRFT4, BMP ####[facility] [address] [address]Dr. Lisa Martinez Chloride [Moles/Vol] 103 mmol/L Normal 98-107 [facility] Comment on above: Performed By: #### T SHRFT4, BMP ####[facility] [address] [address]Dr. Lisa Martinez CO2 [Moles/Vol] 33.4 mmol/L Critically high 21.0-32.0 [facility] Comment on above: Performed By: #### T SHRFT4, BMP ####[facility] [address] [id number]. Lisa Martinez Creatinine [Mass/Vol] 1.69 mg/dL Critically high 0.55-1.02 [facility] Comment on above: Performed By: #### T SHRFT4, BMP ####[facility] [address] [address]Dr. Lisa Martinez EGFR-AF KITTITIAN 35 mL/min/1.73m2 Critically low >=60 [facility] Comment on above: Performed By: #### T SHRFT4, BMP ####[facility] [address] [address]Dr. Lisa Martinez EGFR-NON AF KITTITIAN 29 mL/min/1.73m2 Critically low >=60 [facility] Comment on above: Performed By: #### T ALFRED4, BMP ####[facility] [address] [address]Dr. Lisa Martinez Glucose [Mass/Vol] 72 mg/dL Critically low 74-106 [facility] Comment on above: Performed By: #### T ALFRED4, BMP ####[facility] [address] [address]Dr. Lisa Martinez Potassium [Moles/Vol] 4.0 mmol/L Normal 3.5-5.1 [facility] Comment on above: Performed By: #### T ALFRED4, BMP ####[facility] [address] [address]Dr. Lisa Martinez Sodium [Moles/Vol] 142 mmol/L Normal 136-145 [facility] Comment on above: Performed By: #### T ALFRED4, BMP ####[facility] [address] [place], [place] [address]Dr. Lisa Martinez Urea nitrogen [Mass/Vol] 42.0 mg/dL Critically high 7.0-18.0 [facility] Comment on above: Performed By: #### T ALFRED4, BMP ####[facility] [address] [place], [place] [address]Dr. Lisa Martinez Urea nitrogen/Creatinin e [Mass ratio] 24.9 mg/mg Normal [facility] Comment on above: Performed By: #### T ALFRED4, BMP ####[facility] [address] [place], [place] [address]Dr. Lisa Martinez TSH W/ REFLEX TO FT4on 12-06 TSH 2.427 uIU/mL Normal 0.358-3.740 [facility] Comment on above: Performed By: #### T ALFRED4, BMP ####[facility] [address] [address]Dr. Lisa Martinez Orders Onlyon 11-23-2022 Orders Only [id number] Jenni Villegas 1940 F Date Provider Department [place] 11/23/2022 SRINATH KELLER [facility] Family History Problem Relation Age of Onset Diabetes Father Heart failure Father Other Other Family Status - Relation Status Age at Father Other Normal [facility] HPon 11-22-2022 Cardiovascular Medic [facility] SUBJECTIVE Chief Complaint Patient presents with Congestive Heart Failure f/u H for CHF Jenni Villegas is a 82 y.o. female here for hospital follow-up. Her daughter accompanied her today. Congestive Heart Failure Jenni Villegas is a 82 y.o. female here for Atrial Fibrillation, Congestive Heart Failure, and Valve Disorder. She has history of aortic stenosis status post aortic valve replacement with a 23 mm trifecta tissue valve and surgical exclusion of the left atrial appendage, diastolic heart failure, mild CAD, paroxysmal atrial fibrillation post maze procedure and isolation of the pulmonary veins during the aortic valve replacement surgery. Normal coronary angiogram in 2015. 10/11/2022 -She was recently admitted for CHF exacerbation (diuresed), digoxin was stopped d/t toxicity. She had a holter monitor placed for symptomatic bradycardia. -She is wearing her O2 more often but her breathing feels better. -She c/o fatigue. -She denies c/o CP, orthopnea, PND, LE edema, dizziness/LH, palpitations. 11/21/2022 -Since seen on 10/30/22 she was admitted for sinus tachycardia, dyspnea, hyperkalemia, CATHY, UTI. -At discharge her lisinopril and amlodipine were held. Her Cr remained elevated, not at baseline at discharge. She will be seeing her PCP next week. She has been feeling well since her discharge. BP running 120-130s/70-80s She denies c/o CP, dyspnea, palpitations, dizziness/LH, leg swelling. Patient Active Problem List Diagnosis Anemia Diastolic heart failure (CMS/HCC) Dyspnea Hyperlipemia Mitral and aortic incompetence Atrial fibrillation with rapid ventricular response (CMS/HCC) Abnormal gait Abnormal laboratory test result Acquired hypothyroidism Acute on chronic systolic heart failure (CMS/HCC) Allergic rhinitis due to pollen Aortic valve disorder Asthma Chronic obstructive pulmonary disease (CMS/HCC) Diabetic renal disease (CMS/HCC) Difficulty walking Diverticulosis of colon Drug-induced constipation History of iron deficiency Heart valve transplanted Hyperthyroidism director long term care current use of anticoagulant therapy Mixed anxiety and depressive disorder Muscle weakness Obesity Obstructive sleep apnea syndrome Osteoarthritis of knee Osteopenia Peripheral vascular disease (CMS/HCC) Primary localized osteoarthrosis of ankle and foot Primary ovarian failure Restless legs syndrome Rheumatic mitral valve disease Spinal stenosis of lumbar region Stage 3a chronic kidney disease (CMS/HCC) Stenosis colon (CMS/HCC) Subclinical iodine-deficiency hypothyroidism Supraventricular premature beats Urinary incontinence S/P aortic valve replacement with bioprosthetic valve Pneumonia due to COVID-19 virus Esophageal reflux Drug level above therapeutic range Type 2 diabetes mellitus with peripheral angiopathy (CMS/HCC) Controlled diabetes mellitus type II without complication ([facility]/HCC) Atrial flutter (CMS/HCC) Benign essential hypertension Pulmonary hypertension (CMS/HCC) Nontoxic single thyroid nodule Past Medical History: Diagnosis Date Anemia Aortic valve disorder 04/20/2016 aortic valve replacement with a 23 mm trifecta tissue valve: 2016 Atrial fibrillation (CMS/HCC) Bradycardia CHF (congestive heart failure) ([facility]/HCC) Heart valve disease Hyperlipidemia Hypertension Sleep apnea Family History Problem Relation Name Age of Onset Diabetes Father Heart failure Father Other (neoplastic disease) Other Social History Tobacco Use Smoking status: Former Types: Cigarettes Smokeless tobacco: Never Substance Use Topics Alcohol use: Not Currently Drug use: Never Allergies Allergen Reactions Codeine Entresto [Sacubitril-Valsartan] Penicillins Other ROS Constitutional: Positive for malaise/fatigue and weight loss. Respiratory: Positive for snoring. Skin: Positive for color change. Musculoskeletal: Positive for back pain. Neurological: Positive for excessive daytime sleepiness. All other systems reviewed and are negative. OBJECTIVE Visit Vitals BP 118/72 (BP Location: Left arm, Patient Position: Sitting, BP Cuff Size: Adult) Pulse 92 Ht 1.575 m (5' 2 ) Wt 78.1 kg (172 lb 3.2 oz) SpO2 93% BMI 31.50 kg/m??? Smoking Status Former BSA 1.85 m??? Medications: Current Outpatient Medications: ALPRAZolam (Xanax) 0.25 mg tablet, take 1 tablet by mouth every 6 to 8 hours-15 DAY SUPPLY, Disp: , Rfl: aspirin 81 mg EC tablet, Take 81 mg by mouth in the morning., Disp: , Rfl: atorvastatin (Lipitor) 20 mg tablet, Take 1 tablet by mouth at bedtime., Disp: , Rfl: buPROPion SR (Wellbutrin SR) 150 mg 12 hr tablet, Take 1 tablet by mouth in the morning and at bedtime., Disp: , Rfl: calcium carbonate-vitamin D3 600 mg-5 mcg (200 unit) tablet, Take 600 tablets by mouth 1 (one) time each day at the same time., Disp: , Rfl: carvedilol (Coreg) 12.5 mg (more content not included)... Normal [facility] Office Visiton 11-22-2022 Follow-up visit [id number] Jenni Villegas 1940 F Date Provider Department Center 11/22/2022 BRENT PÉREZ [facility] Family History Problem Relation Age of Onset Diabetes Father Heart failure Father Other Other Family Status - Relation Status Age at Father Other Level of Service:62801 [place] OFFICE/OUTPATIENT ESTABLISHED MOD MDM 30-39 MIN Reason for Visit and Comments: Congestive Heart Failure [127] - f/u [facility] for CHF Normal [facility] BNPon 11-15-2022 Natriuretic peptide B (Bld) [Mass/Vol] 6134.0 pg/mL Critically high <=1,800.0 [facility] Comment on above: Performed By: #### B SOLAR PROJECT COORDINATION SPECIALIST, CMP, MG ####[facility] [address] [address]Dr. Lisa Martinez CBC AUTO DIFFon 11-15-2022 BASO # 0.0 103/ul Normal 0.0-0.1 [facility] Comment on above: Performed By: #### K U #### [facility] [address] [address] [address] Lisa Martinez Basophils/100 WBC (Bld) 0.6 % Normal 0.2-2.0 [facility] Comment on above: Performed By: #### K U #### [facility] [address] [address] [address] Lisa Martinez EO # 0.2 103/ul Normal 0.0-0.7 [facility] Comment on above: Performed By: #### K U #### [facility] [address] [address] [address] Lisa Martinez Eosinophils/100 WBC (Bld) 2.9 % Normal 0.9-7.0 [facility] Comment on above: Performed By: #### K U #### [facility] [address] [place] [address] Dr. Lisa Martinez Erythrocyte distribution width (RBC) [Ratio] 14.9 % Normal 11.0-15.0 [facility] Comment on above: Performed By: #### K U #### [facility] [address] [place] [address] Dr. Lisa Martinez Hematocrit (Bld) [Volume fraction] 31.9 % Critically low 36.0-48.0 [facility] Comment on above: Performed By: #### K U #### [facility] [address] [place] [address] Dr. Lisa Martinez Hemoglobin (Bld) [Mass/Vol] 9.8 g/dL Critically low 12.0-16.0 [facility] Comment on above: Performed By: #### K U #### [facility] [address] [place] [address] Dr. Lisa Martinez IG # 0.02 10e3/ul Normal 0.00-0.03 [facility] Comment on above: Performed By: #### K U #### [facility] [address] [place] [address] Dr. Lisa Martinez IG % 0.3 % Normal 0.0-0.5 [facility] Comment on above: Performed By: #### K U #### [facility] [address] [place] [address] Dr. Lisa Martinez LYMPH # 0.7 103/ul Critically low 1.2-3.8 [facility] Comment on above: Performed By: #### K U #### [facility] [address] [place] [address] Dr. Lisa Martinez Lymphocytes/100 WBC (Bld) 10.9 % Critically low 20.5-60.0 [facility] Comment on above: Performed By: #### K U #### [facility] [address] [place] [address] Dr. Lisa Martinez MANUAL DIFF REQ NO Normal [facility] Comment on above: Performed By: #### K U #### [facility] [address] [address] [address] Lisa Martinez MCH (RBC) [Entitic mass] 29.1 pg Normal 26.7-34.0 [facility] Comment on above: Performed By: #### K U #### [facility] [address] [place] [address] Dr. Lisa Martinez MCHC (RBC) [Mass/Vol] 30.7 g/dL Normal 29.9-35.2 [facility] Comment on above: Performed By: #### K U #### [facility] [address] [place] [address] Dr. Lisa Martinez MCV (RBC) [Entitic vol] 94.7 fL Normal 81.0-99.0 [facility] Comment on above: Performed By: #### K U #### [facility] [address] [place] [address] Dr. Lisa Martinez MONO # 0.8 103/ul Normal 0.3-0.8 [facility] Comment on above: Performed By: #### K U #### [facility] [address] [place] [address] Dr. Lisa Martinez Monocytes/100 WBC (Bld) 12.2 % Critically high 1.7-12.0 [facility] Comment on above: Performed By: #### K U #### [facility] [address] [place] [address] Dr. Lisa Martinez NEUT # 4.6 103/ul Normal 1.4-6.5 [facility] Comment on above: Performed By: #### K U #### [facility] [address] [place] [address] Dr. Lisa Martinez Neutrophils/100 WBC (Bld) 73.1 % Normal 43.0-75.0 [facility] Comment on above: Performed By: #### K U #### [facility] [address] [place] [address] Dr. Lisa Martinez Platelet mean volume (Bld) [Entitic vol] 10.2 fL Normal 9.5-13.5 [facility] Comment on above: Performed By: #### K U #### [facility] [address] [address] [address] Lisa Martinez PLT 186 103/ul Normal 150-450 [facility] Comment on above: Performed By: #### K U #### [facility] [address] [place], [place] [address] Dr. Lisa Martinez RBC 3.37 106/ul Critically low 4.20-5.40 [facility] Comment on above: Performed By: #### K U #### [facility] [address] [address] [address] Lisa Martinez WBC 6.3 103/ul Normal 4.0-11.0 [facility] Comment on above: Performed By: #### K U #### [facility] [address] [place] [address] Dr. Lisa Martniez CHLORIDE URINE RANDOMon 11-06 Chloride, Urine 126 mmol/L Normal Not Estab. [facility] Comment on above: Performed By: #### B LDCX2 #### [facility] [address] [address] [address] Lisa Martinez CULTURE URINEon 11-15-2022 CULTURE URINE Isolate 1 Escherichia coli >100,000 cfu/ml of ORGANISM 1 Escherichia coli ANTIBIOTIC M.I.C RX STATUS Ampicillin 4 S F Ampicillin/Sulbactam <=2 S F Piperacillin/Tazobactam <=4 S F Cefazolin <=4 S F Ceftazidime <=1 S F Ceftriaxone <=1 S F Ertapenem <=0.5 S F Imipenem <=0.25 S F Amikacin <=2 S F Gentamicin <=1 S F Tobramycin <=1 S F Ciprofloxacin <=0.25 S F Levofloxacin <=0.12 S F Nitrofurantoin <=16 S F Trimethoprim/Sulfametho xazole <=20 S F Normal [facility] Comment on above: Performed By: #### U RCX #### [facility] [address] [place] [address] Dr. Lisa Martinez DIGOXINon 11-15-2022 DIG 0.3 ng/mL Critically low 0.9-2.0 [facility] Comment on above: Performed By: #### B SOLAR PROJECT COORDINATION SPECIALIST, BMP #### [facility] [address] [address] [address] Lisa Martinez MAGNESIUMon 11-15-2022 Magnesium [Mass/Vol] 2.2 mg/dL Normal 1.8-2.4 [facility] Comment on above: Performed By: #### B SOLAR PROJECT COORDINATION SPECIALIST, CMP, MG ####[facility] [address] [address]DrIngrid Martinez POINT OF CARE GLUCOSEon 11-06 Glucose [Mass/Vol] 164 mg/dL Critically high 74-106 [facility] Comment on above: Performed By: #### C BC #### [facility] [address] [address] [address] Lisa Martinez PROF 14(COMP METB)on 023 Albumin [Mass/Vol] 3.3 g/dL Critically low 3.4-5.0 [facility] Comment on above: Performed By: #### B SOLAR PROJECT COORDINATION SPECIALIST, CMP, MG ####[facility] [address] [address]Dr. Lisa Martinez Albumin/Globulin [Mass ratio] 0.7 {ratio} Normal [facility] Comment on above: Performed By: #### B SOLAR PROJECT COORDINATION SPECIALIST, CMP, MG ####[facility] [address] [address]Dr. Lisa Martinez ALP [Catalytic activity/Vol] 75 U/L Normal 46-116 [facility] Comment on above: Performed By: #### B SOLAR PROJECT COORDINATION SPECIALIST, CMP, MG ####[facility] [address] [address]Dr. Lisa Martinez ALT [Catalytic activity/Vol] 14 U/L Normal 14-59 [facility] Comment on above: Performed By: #### B SOLAR PROJECT COORDINATION SPECIALIST, CMP, MG ####[facility] [address] [address]Dr. Lisa Martinez Anion gap [Moles/Vol] 11.1 mmol/L Normal [facility] Comment on above: Performed By: #### B SOLAR PROJECT COORDINATION SPECIALIST, CMP, MG ####[facility] [address] [address]Dr. Lisa Martinez AST [Catalytic activity/Vol] 14 U/L Critically low 15-37 [facility] Comment on above: Performed By: #### B SOLAR PROJECT COORDINATION SPECIALIST, CMP, MG ####[facility] [address] [address]Dr. Lisa Martinez Bilirubin [Mass/Vol] 0.9 mg/dL Normal 0.2-1.0 [facility] Comment on above: Performed By: #### B SOLAR PROJECT COORDINATION SPECIALIST, CMP, MG ####[facility] [address] [address]Dr. Lisa Martinez Calcium [Mass/Vol] 9.1 mg/dL Normal 8.5-10.1 [facility] Comment on above: Performed By: #### B SOLAR PROJECT COORDINATION SPECIALIST, CMP, MG ####[facility] [address] [place], [place] [address]Dr. Fabianachapis Matrinez Chloride [Moles/Vol] 100 mmol/L Normal 98-107 [facility] Comment on above: Performed By: #### B SOLAR PROJECT COORDINATION SPECIALIST, CMP, MG ####[facility] [address] [place], [place] [address]Dr. Lisa Martinez CO2 [Moles/Vol] 32.6 mmol/L Critically high 21.0-32.0 [facility] Comment on above: Performed By: #### B SOLAR PROJECT COORDINATION SPECIALIST, CMP, MG ####[facility] [address] [place], [place] [address]Dr. Lisa Martinez Creatinine [Mass/Vol] 2.65 mg/dL Critically high 0.55-1.02 [facility] Comment on above: Performed By: #### B SOLAR PROJECT COORDINATION SPECIALIST, CMP, MG ####[facility] [address] [place], [place] [address]Dr. Lisa Martinez EGFR-AF KITTITIAN 21 mL/min/1.73m2 Critically low >=60 [facility] Comment on above: Performed By: #### B SOLAR PROJECT COORDINATION SPECIALIST, CMP, MG ####[facility] [address] [place], [place] [address]Dr. Lisa Martinez EGFR-NON AF KITTITIAN 17 mL/min/1.73m2 Critically low >=60 [facility] Comment on above: Performed By: #### B SOLAR PROJECT COORDINATION SPECIALIST, CMP, MG ####[facility] [facility] [id number] [place] [address]Dr. iLsa Martinez Globulin (S) [Mass/Vol] 4.7 g/dL Normal [facility] Comment on above: Performed By: #### B SOLAR PROJECT COORDINATION SPECIALIST, CMP, MG ####[facility] [id number] [place] [address]Dr. Lisa Martinez Glucose [Mass/Vol] 131 mg/dL Critically high 74-106 T [facility] Comment on above: Performed By: #### B SOLAR PROJECT COORDINATION SPECIALIST, CMP, MG ####[facility] [address] [place] [address]Dr. Lisa Martinez Potassium [Moles/Vol] 3.7 mmol/L Normal 3.5-5.1 [facility] Comment on above: Performed By: #### B SOLAR PROJECT COORDINATION SPECIALIST, CMP, MG ####[facility] [address] [place] [address]Dr. Lisa Martinez Protein [Mass/Vol] 8.0 g/dL Normal 6.4-8.2 [facility] Comment on above: Performed By: #### B SOLAR PROJECT COORDINATION SPECIALIST, CMP, MG ####[facility] [address] [place] [address]Dr. Lisa Martinez Sodium [Moles/Vol] 140 mmol/L Normal 136-145 [facility] Comment on above: Performed By: #### B SOLAR PROJECT COORDINATION SPECIALIST, CMP, MG ####[facility] [address] [place] [address]Dr. iLsa Martinez Urea nitrogen [Mass/Vol] 66.0 mg/dL Critically high 7.0-18.0 [facility] Comment on above: Performed By: #### B SOLAR PROJECT COORDINATION SPECIALIST, CMP, MG ####[facility] [address] [place] [address]Dr. Lisa Martinez Urea nitrogen/Creatinin e [Mass ratio] 24.9 mg/mg Normal [facility] Comment on above: Performed By: #### B SOLAR PROJECT COORDINATION SPECIALIST, CMP, MG ####[facility] [address] [place] [address]Dr. Lisa Martinez UREA NITROGEN, RANDOM URon 0 11-15-2022 Urea Nitrogen, Urine 165 mg/dL Normal Not Estab. [facility] Comment on above: Performed By: #### U NR ####[facility] [address] [place] [address]Dr. Lisa Martinez BNPon 11-14-2022 Natriuretic peptide B (Bld) [Mass/Vol] 8525.0 pg/mL Critically high <=1,800.0 [facility] Comment on above: Performed By: #### B SOLAR PROJECT COORDINATION SPECIALIST ####[facility] [address] [place] [address]Dr. Lisa Martinez CBC AUTO DIFFon 11-14-2022 BASO # 0.0 103/ul Normal 0.0-0.1 [facility] Comment on above: Performed By: #### C VDTBH #### [facility] [address] [place] [address] Dr. Lisa Martinez Basophils/100 WBC (Bld) 0.5 % Normal 0.2-2.0 [facility] Comment on above: Performed By: #### C VDTBH #### [facility] [address] [place] [address] Dr. Lisa Martinez EO # 0.2 103/ul Normal 0.0-0.7 [facility] Comment on above: Performed By: #### C VDTBH #### [facility] [address] [address] [address] Lisa Martinez Eosinophils/100 WBC (Bld) 3.4 % Normal 0.9-7.0 [facility] Comment on above: Performed By: #### C VDTBH #### [facility] [address] [place] [address] Dr. Lisa Martinez Erythrocyte distribution width (RBC) [Ratio] 14.9 % Normal 11.0-15.0 [facility] Comment on above: Performed By: #### C VDTBH #### [facility] [address] [place] [address] Dr. Lisa Martinez Hematocrit (Bld) [Volume fraction] 31.3 % Critically low 36.0-48.0 [facility] Comment on above: Performed By: #### C VDTBH #### [facility] [address] [place] [address] Dr. Lisa Martinez Hemoglobin (Bld) [Mass/Vol] 9.4 g/dL Critically low 12.0-16.0 [facility] Comment on above: Performed By: #### C VDTBH #### [facility] [address] [place] [address] Dr. Lisa Martinez IG # 0.01 10e3/ul Normal 0.00-0.03 [facility] Comment on above: Performed By: #### C VDTBH #### [facility] [address] [place] [address] Dr. Lisa Martinez IG % 0.2 % Normal 0.0-0.5 [facility] Comment on above: Performed By: #### C VDTBH #### [facility] [address] [place] [address] Dr. Lisa Martinez LYMPH # 0.9 103/ul Critically low 1.2-3.8 [facility] Comment on above: Performed By: #### C VDTBH #### [facility] [address] [place] [address] Dr. Lisa Martinez Lymphocytes/100 WBC (Bld) 15.2 % Critically low 20.5-60.0 [facility] Comment on above: Performed By: #### C VDTBH #### [facility] [address] [place] [address] Dr. Lisa Martinez MANUAL DIFF REQ NO Normal [facility] Comment on above: Performed By: #### C VDTBH #### [facility] [address] [place] [address] Dr. Lisa Martinez MCH (RBC) [Entitic mass] 29.0 pg Normal 26.7-34.0 [facility] Comment on above: Performed By: #### C VDTBH #### [facility] [address] [place] [address] Dr. Lisa Martinez MCHC (RBC) [Mass/Vol] 30.0 g/dL Normal 29.9-35.2 [facility] Comment on above: Performed By: #### C VDTBH #### [facility] [address] [place] [address] Dr. Lisa Martinez MCV (RBC) [Entitic vol] 96.6 fL Normal 81.0-99.0 [facility] Comment on above: Performed By: #### C VDTBH #### [facility] [address] [place] [address] Dr. Lisa Martinez MONO # 0.6 103/ul Normal 0.3-0.8 [facility] Comment on above: Performed By: #### C VDTBH #### [facility] [address] [place] [address] Dr. Lisa Martinez Monocytes/100 WBC (Bld) 10.2 % Normal 1.7-12.0 [facility] Comment on above: Performed By: #### C VDTBH #### [facility] [address] [place] [address] Dr. Lsia Martinez NEUT # 4.0 103/ul Normal 1.4-6.5 [facility] Comment on above: Performed By: #### C VDTBH #### [facility] [address] [place] [address] Dr. Lisa Martinez Neutrophils/100 WBC (Bld) 70.5 % Normal 43.0-75.0 [facility] Comment on above: Performed By: #### C VDTBH #### [facility] [address] [place] [address] Dr. Lisa Martinez Platelet mean volume (Bld) [Entitic vol] 10.3 fL Normal 9.5-13.5 [facility] Comment on above: Performed By: #### C VDTBH #### [facility] [address] [place] [address] Dr. Lisa Martinez PLT 192 103/ul Normal 150-450 [facility] Comment on above: Performed By: #### C VDTBH #### [facility] [address] [address] [address] Lisa Martinez RBC 3.24 106/ul Critically low 4.20-5.40 [facility] Comment on above: Performed By: #### C VDTBH #### [facility] [address] [address] [address] Lisa Martinez WBC 5.7 103/ul Normal 4.0-11.0 [facility] Comment on above: Performed By: #### C VDTBH #### [facility] [address] [address] [address] Lisa Martinez D-DIMERon 11-14-2022 D-DIMER 0.82 mg/L FEU Critically high <=0.59 [facility] Comment on above: Performed By: #### B SOLAR PROJECT COORDINATION SPECIALIST, BMP #### [facility] [address] [place] [address] Dr. Lisa Martinez D-DIMER COMMENTS SEE BELOW Normal [facility] Comment on above: Result Comment: Incr eases in D-Dimer concentration observed with thromboembolic events can be variable due to localization, size, and age of the thrombus. Therefore, a thromboembolic event cannot be diagnosed with certainty on the basis of the reference range. D-Dimers may also be elevated for a variety of disorders including: advanced age, , coronary disease, cancer, liver disease, infection, inflammation, hematoma, DIC, trauma, post-surgery, diabetes, thrombolytic or anticoagulant therapy, stress, and generalized hospitalization. Performed By: #### B SOLAR PROJECT COORDINATION SPECIALIST, BMP #### [facility] [address] [place] [address] Dr. Lisa Martinez ECHO LIMITED STUDYon 023 ECHO LIMITED STUDY Patient: URSZULA VILLEGAS Exam Date: 11/14/2022 : 1940 Gender:F Ordering : DR ROBERTO ZIMMERMAN . Admission #: [id number] Family : Order #: [id number] CLICK HERE TO VIEW EXAM ECHOCARDIOGRAM REPORT PROCEDURE: CARDIO PULMONARY ECHO LIMITED STUDY INDICATIONS: Elevated BNP, diabetes, hypertension, chronic CHF, aortic valve replacement COMPARISON: None. DESCRIPTION: Limited ECHOCARDIOGRAM Real-time transthoracic echocardiography with 2D and M-mode performed. QUALITY: Limited echocardiogram per physician's order. LEFT VENTRICLE: Mild dilatation. LV EF: Global left ventricular systolic function is difficult to assess but appears mild to moderately reduced. Ejection fraction is estimated to be 35 to 40%. Abnormal septal motion; consistent with right ventricular pressure and/or volume overload. LEFT ATRIUM: Severe dilatation. RIGHT ATRIUM: Severe dilatation. RIGHT VENTRICLE: The right ventricle appears enlarged with significantly reduced systolic function. TRICUSPID VALVE: Normal mobility and thickness. MITRAL VALVE: Moderately thickened, severely calcific with decreased mobility. AORTIC VALVE: Bio-Prosthetic valve appears well seated in the aortic position. Significant valve calcification is seen. Valve mobility appears reduced. AORTIC ROOT: Normal diameter and appearance. PULMONIC VALVE: Normal thickness and mobility. PERICARDIUM: No evidence of pericardial effusion. IVC: IVC is normal in size does not collapse. CONCLUSION: 1. Global left ventricular systolic function is difficult to assess but appears mild to moderately reduced. Ejection fraction is estimated to be 35 to 40%. 2. D-shaped septum consistent with right ventricular pressure and/or volume overload. 3. Severe biatrial enlargement. 4. The right ventricle is enlarged with reduced systolic function. 5. Significant mitral annular and valvular calcification. 6. A bioprosthetic aortic valve is seen with significant calcification and restricted leaflet mobility. A limited echocardiogram was performed. Adult Echocardiography Procedure Report Left Ventricle LVEDD (3.7 - 5.6 cm): 5.38 cm LVESD (2.2 - 4.0 cm): 4.53 cm LVIVS thickness (0.6 - 1.2 cm): 0.74 cm LVPW thickness (0.5 - 1.0 cm): 1.04 cm LVOT Diameter 1.90 cm Left Atrium Left Atrium Systolic Dimension: 4.20 cm Mitral Valve Right Ventricle Aorta AO Root Diam: 3.27 cm Ascending Ao Diam: 3.44 cm Aortic Valve Tricuspid Valve Pulmonic Valve Right Atrium Right Atrium Systolic Pressure: 72.46 ml, 72.46 ml Dictated by: Eve Marley M.D. on 11/14/2022 at 16:38 Approved by: Eve Marley M.D. on 11/14/2022 at 16:43 Normal [facility] MAGNESIUMon 11-14-2022 Magnesium [Mass/Vol] 2.3 mg/dL Normal 1.8-2.4 [facility] Comment on above: Performed By: #### U RCX #### [facility] [address] [address] [address] Lisa Martinez NM LUNG VENT_PERFon 11-15-19 23 NM LUNG VENT_PERF VENTILATION/PERFUSIO N SCAN HISTORY: Shortness of breath, fatigue and weakness. COMPARISON: Chest radiograph 11/13/2022. TECHNIQUE: The patient inhaled 25.6 mCi of technetium-99m DTPA aerosol and images were performed in multiple projections. The patient then was injected with 10.1 mCi technetium-99m MAA, and images were again performed in multiple projections. FINDINGS: The ventilation and perfusion appear somewhat heterogeneous with a few nonsegmental matched ventilation/perfusion defects but no segmental mismatched defects. There is volume loss of the right lung similar to the chest radiograph. IMPRESSION: Very low probability of pulmonary embolism. Electronically authenticated by: SADIE GRACIA Date: 2022-11-14 19:11 Normal [facility] OCC BLD IMMUNO SCREENon OCCULT BLOOD Negative Normal NEGATIVE [facility] Comment on above: Performed By: #### B LDCX2 #### [facility] [address] [address] [address] Lisa Martinez POINT OF CARE GLUCOSEon Glucose [Mass/Vol] 155 mg/dL Critically high 74-106 [facility] Comment on above: Performed By: #### P OCGLUC ####[facility] [address] [place], [place] [address]NzDr. Lisa Martinez Glucose [Mass/Vol] 148 mg/dL Critically high 74-106 [facility] Comment on above: Performed By: #### B LDCX2 #### [facility] [address] [id number] [address] Lisa Martinez Glucose [Mass/Vol] 76 mg/dL Normal 74-106 [facility] Comment on above: Performed By: #### B LDCX2 #### [facility] [address] [address] [address] Lisa Martinez POTASSIUM URINEon 11-14-2022 UR POTASSIUM 21.3 mmol/L Normal [facility] Comment on above: Performed By: #### K U #### [facility] [address] [address] [address] Lisa Martinez PROF 14(COMP METB)on 023 Albumin [Mass/Vol] 3.3 g/dL Critically low 3.4-5.0 [facility] Comment on above: Performed By: #### U RCX #### [facility] [address] [address] [address] Lisa Martinez Albumin/Globulin [Mass ratio] 0.7 {ratio} Normal [facility] Comment on above: Performed By: #### U RCX #### [facility] [address] [place] [address] Dr. Lisa Martinez ALP [Catalytic activity/Vol] 72 U/L Normal 46-116 [facility] Comment on above: Performed By: #### U RCX #### [facility] [address] [place] [address] Dr. Lisa Martinez ALT [Catalytic activity/Vol] 16 U/L Normal 14-59 [facility] Comment on above: Performed By: #### U RCX #### [facility] [address] [place] [address] Dr. Lisa Martinez Anion gap [Moles/Vol] 13.0 mmol/L Normal [facility] Comment on above: Performed By: #### U RCX #### [facility] [address] [place] [address] Dr. Lisa Martinez AST [Catalytic activity/Vol] 13 U/L Critically low 15-37 [facility] Comment on above: Performed By: #### U RCX #### [facility] [address] [address] [address] Lisa Martinez Bilirubin [Mass/Vol] 0.8 mg/dL Normal 0.2-1.0 [facility] Comment on above: Performed By: #### U RCX #### [facility] [address] [place] [address] Dr. Lisa Martinez Calcium [Mass/Vol] 9.0 mg/dL Normal 8.5-10.1 [facility] Comment on above: Performed By: #### U RCX #### [facility] [address] [address] [address] Lisa Martinez Chloride [Moles/Vol] 100 mmol/L Normal 98-107 [facility] Comment on above: Performed By: #### U RCX #### [facility] [address] [address] [address] Lisa Martinez CO2 [Moles/Vol] 30.0 mmol/L Normal 21.0-32.0 [facility] Comment on above: Performed By: #### U RCX #### [facility] [address] [address] [address] Lisa Martinez Creatinine [Mass/Vol] 2.79 mg/dL Critically high 0.55-1.02 [facility] Comment on above: Performed By: #### U RCX #### [facility] [address] [address] [address] Lisa Martinez EGFR-AF KITTITIAN 20 mL/min/1.73m2 Critically low >=60 [facility] Comment on above: Performed By: #### U RCX #### [facility] [address] [address] [address] Lisa Martinez EGFR-NON AF KITTITIAN 16 mL/min/1.73m2 Critically low >=60 [facility] Comment on above: Performed By: #### U RCX #### [facility] [address] [address] [address] Lisa Martinez Globulin (S) [Mass/Vol] 4.6 g/dL Normal [facility] Comment on above: Performed By: #### U RCX #### [facility] [address] [address] [address] Lisa Martinez Glucose [Mass/Vol] 153 mg/dL Critically high 74-106 [facility] Comment on above: Performed By: #### U RCX #### [facility] [address] [address] [address] Lisa Martinez Potassium [Moles/Vol] 4.0 mmol/L Normal 3.5-5.1 [facility] Comment on above: Performed By: #### U RCX #### [facility] [address] [address] [address] Lisa Martinez Protein [Mass/Vol] 7.9 g/dL Normal 6.4-8.2 [facility] Comment on above: Performed By: #### U RCX #### [facility] [address] [place] [address] Dr. Lisa Martinez Sodium [Moles/Vol] 139 mmol/L Normal 136-145 [facility] Comment on above: Performed By: #### U RCX #### [facility] [address] [place] [address] Dr. Lisa Martinez Urea nitrogen [Mass/Vol] 67.0 mg/dL Critically high 7.0-18.0 [facility] Comment on above: Performed By: #### U RCX #### [facility] [address] [place] [address] Dr. Lisa Martinez Urea nitrogen/Creatinin e [Mass ratio] 24.0 mg/mg Normal [facility] Comment on above: Performed By: #### U RCX #### [facility] [address] [place] [address] Dr. Lisa Martinez SODIUM RANDOM URINEon 2022 Sodium (U) [Moles/Vol] 122 mmol/L Critically high 30-90 [facility] Comment on above: Performed By: #### B SOLAR PROJECT COORDINATION SPECIALIST, BMP #### [facility] [address] [place] [address] Dr. Lisa Martinez T3, TOTAL (TRIIODOTHYRONINE) on 11-14-2022 T3, TOTAL 84 ng/dL Normal 71-180 [facility] Comment on above: Performed By: #### U RCX #### [facility] [address] [place] [address] Dr. Lisa Martinez BNPon 11-13-2022 Natriuretic peptide B (Bld) [Mass/Vol] 61383.0 pg/mL Critically high <=1,800.0 [facility] Comment on above: Performed By: #### B MP, HSTROPN, BNP ####[facility] [address] [place], [place] [address]Ws. Lisa Martinez CARDIAC DONY 3-6on 3 CK [Catalytic activity/Vol] 60 U/L Normal 26-192 [facility] Comment on above: Performed By: #### C MREP ####[facility] [address] [place], [place] [address]QmIngrid Martinez CK.MB [Mass/Vol] 0.96 ng/mL Normal <=3.60 [facility] Comment on above: Performed By: #### C MREP ####[facility] [address] [place], [place] [address]QhDr. Lisa Martinez HSTROP 16.3 pg/mL Normal 4.0-51.3 [facility] Comment on above: Result Comment: CUT- OFF POINTS HAVE BEEN ESTABLISHED BASED ON THE FOURTH UNIVERSAL DEFINITIONS OF MYOCARDIAL INFARCTION. THE UPPER REFERENCE LIMIT (URL) OF TROPONIN, DEFINED THE 99TH PERCENTILE OF cTnI DISTRIBUTION IN A REFERENCE POPULATION, HAS BEEN CONFIRMED THE DECISION THRESHOLD FOR ME DIAGNOSIS. Performed By: #### C MREP ####[facility] [address] [place] [id number]. Lisa aMrtinez CK [Catalytic activity/Vol] 60 U/L Normal 26-192 [facility] Comment on above: Performed By: #### C BC #### [facility] [address] [address] [address] Lisa Martinez CK.MB [Mass/Vol] 0.94 ng/mL Normal <=3.60 [facility] Comment on above: Performed By: #### C BC #### [facility] [address] [address] [address] Lisa Martinez HSTROP 15.1 pg/mL Normal 4.0-51.3 [facility] Comment on above: Result Comment: CUT- OFF POINTS HAVE BEEN ESTABLISHED BASED ON THE FOURTH UNIVERSAL DEFINITIONS OF MYOCARDIAL INFARCTION. THE UPPER REFERENCE LIMIT (URL) OF TROPONIN, DEFINED THE 99TH PERCENTILE OF cTnI DISTRIBUTION IN A REFERENCE POPULATION, HAS BEEN CONFIRMED THE DECISION THRESHOLD FOR ME DIAGNOSIS. Performed By: #### C BC #### [facility] [address] [address] [address] Lisa Martinez CBC AUTO DIFFon 11-13-2022 BASO # 0.1 103/ul Normal 0.0-0.1 [facility] Comment on above: Performed By: #### C BC #### [facility] [address] [place] [address] Dr. Lisa Martinez Basophils/100 WBC (Bld) 0.6 % Normal 0.2-2.0 [facility] Comment on above: Performed By: #### C BC #### [facility] [address] [place] [address] Dr. Lisa Martinez EO # 0.2 103/ul Normal 0.0-0.7 [facility] Comment on above: Performed By: #### C BC #### [facility] [address] [place] [address] Dr. Lisa Martinez Eosinophils/100 WBC (Bld) 1.8 % Normal 0.9-7.0 [facility] Comment on above: Performed By: #### C BC #### [facility] [address] [place] [address] Dr. Lisa Martinez Erythrocyte distribution width (RBC) [Ratio] 15.0 % Normal 11.0-15.0 [facility] Comment on above: Performed By: #### C BC #### [facility] [address] [place] [address] Dr. Lisa Martinez Hematocrit (Bld) [Volume fraction] 32.9 % Critically low 36.0-48.0 [facility] Comment on above: Performed By: #### C BC #### [facility] [address] [place] [address] Dr. Lisa Martinez Hemoglobin (Bld) [Mass/Vol] 9.8 g/dL Critically low 12.0-16.0 [facility] Comment on above: Performed By: #### C BC #### [facility] [address] [place] [address] Dr. Lisa Martinez IG # 0.02 10e3/ul Normal 0.00-0.03 [facility] Comment on above: Performed By: #### C BC #### [facility] [address] [address] [address] Lsia Martinez IG % 0.2 % Normal 0.0-0.5 [facility] Comment on above: Performed By: #### C BC #### [facility] [address] [address] [address] Lisa Martinez LYMPH # 0.7 103/ul Critically low 1.2-3.8 [facility] Comment on above: Performed By: #### C BC #### [facility] [address] [place] [address] Dr. Lisa Martinez Lymphocytes/100 WBC (Bld) 7.8 % Critically low 20.5-60.0 [facility] Comment on above: Performed By: #### C BC #### [facility] [address] [place] [address] Dr. Lisa Martinez MANUAL DIFF REQ NO Normal [facility] Comment on above: Performed By: #### C BC #### [facility] [address] [place] [address] Dr. Lisa Martinez MCH (RBC) [Entitic mass] 29.4 pg Normal 26.7-34.0 [facility] Comment on above: Performed By: #### C BC #### [facility] [address] [place] [address] Dr. Lisa Martinez MCHC (RBC) [Mass/Vol] 29.8 g/dL Critically low 29.9-35.2 [facility] Comment on above: Performed By: #### C BC #### [facility] [address] [place] [address] Dr. Lisa Martinez MCV (RBC) [Entitic vol] 98.8 fL Normal 81.0-99.0 [facility] Comment on above: Performed By: #### C BC #### [facility] [address] [place] [address] Dr. Lisa Martinez MONO # 0.7 103/ul Normal 0.3-0.8 [facility] Comment on above: Performed By: #### C BC #### [facility] [address] [address] [address] Lisa Martinez Monocytes/100 WBC (Bld) 7.6 % Normal 1.7-12.0 [facility] Comment on above: Performed By: #### C BC #### [facility] [address] [address] [address] Lisa Martinez NEUT # 7.0 103/ul Critically high 1.4-6.5 [facility] Comment on above: Performed By: #### C BC #### [facility] [address] [address] [address] Lisa Martinez Neutrophils/100 WBC (Bld) 82.0 % Critically high 43.0-75.0 [facility] Comment on above: Performed By: #### C BC #### [facility] [address] [place] [address] Dr. Lisa Martinez Platelet mean volume (Bld) [Entitic vol] 10.6 fL Normal 9.5-13.5 [facility] Comment on above: Performed By: #### C BC #### [facility] [address] [place] [address] Dr. Lisa Martinez PLT 209 103/ul Normal 150-450 [facility] Comment on above: Performed By: #### C BC #### [facility] [address] [place] [address] Dr. Lisa Martinez RBC 3.33 106/ul Critically low 4.20-5.40 [facility] Comment on above: Performed By: #### C BC #### [facility] [address] [place] [address] Dr. Lisa Martinez WBC 8.6 103/ul Normal 4.0-11.0 [facility] Comment on above: Performed By: #### C BC #### [facility] [address] [place] [address] Dr. Lisa Martinez LACTATE/LACTIC ACIDon 2022 Lactate [Moles/Vol] 3.4 mmol/L Critically high 0.4-2.0 [facility] Comment on above: Performed By: #### L ACT ####[facility] [address] [place], [place] [address]Dr. Lisa Martinez MAGNESIUMon 11-13-2022 Magnesium [Mass/Vol] 2.6 mg/dL Critically high 1.8-2.4 [facility] Comment on above: Performed By: #### B SOLAR PROJECT COORDINATION SPECIALIST, BMP #### [facility] [facility] [address] [address] [address] Lisa Martinez PROF CHEM 8 (BAS METB)on Anion gap [Moles/Vol] 15.7 mmol/L Normal [facility] Comment on above: Performed By: #### C BC #### [facility] [address] [address] [address] Lisa Martinez Calcium [Mass/Vol] 9.1 mg/dL Normal 8.5-10.1 [facility] Comment on above: Performed By: #### C BC #### [facility] [address] [address] [address] Lisa Martinez Chloride [Moles/Vol] 103 mmol/L Normal 98-107 [facility] Comment on above: Performed By: #### C BC #### [facility] [address] [address] [address] Lisa Martinez CO2 [Moles/Vol] 27.2 mmol/L Normal 21.0-32.0 [facility] Comment on above: Performed By: #### C BC #### [facility] [address] [address] [address] Lisa Martinez Creatinine [Mass/Vol] 2.91 mg/dL Critically high 0.55-1.02 [facility] Comment on above: Performed By: #### C BC #### [facility] [address] [address] [address] Lisa Martinez EGFR-AF KITTITIAN 19 mL/min/1.73m2 Critically low >=60 [facility] Comment on above: Performed By: #### C BC #### [facility] [address] [address] [address] Lisa Martinez EGFR-NON AF KITTITIAN 15 mL/min/1.73m2 Critically low >=60 [facility] Comment on above: Performed By: #### C BC #### [facility] [address] [address] [address] Lisa Martinez Glucose [Mass/Vol] 172 mg/dL Critically high 74-106 T [facility] Comment on above: Performed By: #### C BC #### [facility] [address] [address] [address] Lisa Martinez Potassium [Moles/Vol] 4.9 mmol/L Normal 3.5-5.1 [facility] Comment on above: Performed By: #### C BC #### [facility] [address] [address] [address] Lisa Martinez Sodium [Moles/Vol] 141 mmol/L Normal 136-145 [facility] Comment on above: Performed By: #### C BC #### [facility] [address] [address] [address] Lisa Martinez Urea nitrogen [Mass/Vol] 64.0 mg/dL Critically high 7.0-18.0 [facility] Comment on above: Performed By: #### C BC #### [facility] [address] [address] [address] Lisa Martinez Urea nitrogen/Creatinin e [Mass ratio] 22.0 mg/mg Normal [facility] Comment on above: Performed By: #### C BC #### [facility] [address] [address] [address] Lisa Martinez Anion gap [Moles/Vol] 17.4 mmol/L Normal [facility] Comment on above: Performed By: #### B MP, HSTROPN, BNP ####[facility] [address] [id number]. Lisa Martinez Calcium [Mass/Vol] 9.1 mg/dL Normal 8.5-10.1 [facility] Comment on above: Performed By: #### B MP, HSTROPN, BNP ####[facility] [address] [id number]. Lisa Martinez Chloride [Moles/Vol] 104 mmol/L Normal 98-107 [facility] Comment on above: Performed By: #### B MP, HSTROPN, BNP ####[facility] [address] [address]Dr. Lisa Martinez CO2 [Moles/Vol] 26.9 mmol/L Normal 21.0-32.0 [facility] Comment on above: Performed By: #### B MP, HSTROPN, BNP ####[facility] [address] [place], [place] [address]Dr. Lisa Martinez Creatinine [Mass/Vol] 3.12 mg/dL Critically high 0.55-1.02 [facility] Comment on above: Performed By: #### B MP, HSTROPN, BNP ####[facility] [address] [place], [place] [address]Dr. Lisa Martinez EGFR-AF KITTITIAN 17 mL/min/1.73m2 Critically low >=60 [facility] Comment on above: Performed By: #### B MP, HSTROPN, BNP ####[facility] [address] [place], [place] [address]Dr. Lisa Martinez EGFR-NON AF KITTITIAN 14 mL/min/1.73m2 Critically low >=60 [facility] Comment on above: Performed By: #### B MP, HSTROPN, BNP ####[facility] [address] [place], [place] [address]Dr. Lisa Martinez Glucose [Mass/Vol] 131 mg/dL Critically high 74-106 [facility] Comment on above: Performed By: #### B MP, HSTROPN, BNP ####[facility] [address] [place], [place] [address]Dr. Lisa Martinez Potassium [Moles/Vol] 5.3 mmol/L Critically high 3.5-5.1 [facility] Comment on above: Performed By: #### B MP, HSTROPN, BNP ####[facility] [address] [address]Dr. Lisa Martinez Sodium [Moles/Vol] 143 mmol/L Normal 136-145 [facility] Comment on above: Performed By: #### B MP, HSTROPN, BNP ####[facility] [address] [place], [place] [address]Yx. Lisa Martinez Urea nitrogen [Mass/Vol] 59.0 mg/dL Critically high 7.0-18.0 [facility] Comment on above: Performed By: #### B MP, HSTROPN, BNP ####[facility] [address] [place], [place] [address]Dr. Lisa Martinez Urea nitrogen/Creatinin e [Mass ratio] 18.9 mg/mg Normal [facility] Comment on above: Performed By: #### B MP, HSTROPN, BNP ####[facility] [address] [id number] Martinez SYMPTOMATIC COVID-19 ANTIGEN on 11-13-2022 EUA Statement SEE BELOW Normal [facility] Comment on above: Result Comment: This test has not been FDA cleared or approved, but has been authorized by the FDA under an Emergency Use Authorization (EUA) for use by authorized laboratories certified under CLIA that meet the requirements to perform moderate or high complexity testing. This test has been authorized only for the detection of proteins from SARS-CoV-2, not for any other viruses or pathogens. The emergency use of this test is authorized for the duration of the declaration that circumstances exist justifying the authorization of emergency use of in vitro diagnostic tests for detection and/or diagnosis of Covid-19 under section 564(b)(1) of the Act, 21 U.S.C. 360bbb-3(b)(1), unless the declaration is terminated or authorization is revoked sooner. Performed By: #### C VDTBH #### [facility] [address] [address] [address] Lisa Martinez SARS-CoV-2 (COVID-19) RNA RACIEL+probe Ql (Unsp spec) Negative Normal NEGATIVE [facility] Comment on above: Performed By: #### C VDTBH #### [facility] [address] [address] [address] Lisa Martinez T4on 11-13-2022 T4 [Mass/Vol] 6.70 ug/dL Normal 4.80-13.90 [facility] Comment on above: Performed By: #### B SOLAR PROJECT COORDINATION SPECIALIST, BMP #### [facility] [address] [place] [address] Dr. Lisa Martinez TROPONIN, HIGH SENSITIVITYon 11-13-2022 HSTROP 17.9 pg/mL Normal 4.0-51.3 [facility] Comment on above: Result Comment: CUT- OFF POINTS HAVE BEEN ESTABLISHED BASED ON THE FOURTH UNIVERSAL DEFINITIONS OF MYOCARDIAL INFARCTION. THE UPPER REFERENCE LIMIT (URL) OF TROPONIN, DEFINED THE 99TH PERCENTILE OF cTnI DISTRIBUTION IN A REFERENCE POPULATION, HAS BEEN CONFIRMED THE DECISION THRESHOLD FOR ME DIAGNOSIS. Performed By: #### B MP, HSTROPN, BNP ####[facility] [address] [address]Dr. Lisa Martinez TSHon 11-13-2022 TSH 5.233 uIU/mL Critically high 0.358-3.740 [facility] Comment on above: Performed By: #### B SOLAR PROJECT COORDINATION SPECIALIST, BMP #### [facility] [address] [place] [address] Dr. Lisa Martinez UA RANDOM W/MICROSCOPICon BACTERIA SMALL Abnormal NONE SEEN [facility] Comment on above: Performed By: #### K U #### [facility] [address] [place] [address] Dr. Lisa Martinez Bilirubin Ql (U) Negative Normal NEGATIVE [facility] Comment on above: Performed By: #### K U #### [facility] [address] [place] [address] Dr. Lisa Martinez CAST SEEN Abnormal NONE SEEN [facility] Comment on above: Performed By: #### K U #### [facility] [address] [address] [address] Lisa Martinez Clarity (U) CLEAR Normal CLEAR [facility] Comment on above: Performed By: #### K U #### [facility] [address] [place] [address] Dr. Lisa Martinez Color (U) LT. YELLOW Normal YELLOW [facility] Comment on above: Performed By: #### K U #### [facility] [address] [address] [address] Lisa Martinez Crystals LM Nom (Urine sed) NONE SEEN Normal NONE SEEN [facility] Comment on above: Performed By: #### K U #### [facility] [address] [place] [address] Dr. Lisa Martinez Epithelial cells LM Ql (Urine sed) FEW Abnormal NONE SEEN /RARE [facility] Comment on above: Performed By: #### K U #### [facility] [address] [place] [address] Dr. Lisa Martinez Glucose Ql (U) Negative Normal NEGATIVE [facility] Comment on above: Performed By: #### K U #### [facility] [address] [place] [address] Dr. Lisa Martinez Hemoglobin Ql (U) Negative Normal NEGATIVE [facility] Comment on above: Performed By: #### K U #### [facility] [address] [place] [address] Dr. Lisa Martinez HYALINE CAST FEW Normal [facility] Comment on above: Performed By: #### K U #### [facility] [address] [place] [address] Dr. Lisa Martinez Ketones Ql (U) Negative Normal NEGATIVE [facility] Comment on above: Performed By: #### K U #### [facility] [address] [place] [address] Dr. Lisa Martinez LEUKOCYTES Negative Normal NEGATIVE [facility] Comment on above: Performed By: #### K U #### [facility] [address] [place] [address] Dr. Lisa Martinez MUCOUS NONE SEEN Normal NONE SEEN [facility] Comment on above: Performed By: #### K U #### [facility] [address] [place] [address] Dr. Lisa Martinez Nitrite Ql (U) Negative Normal NEGATIVE [facility] Comment on above: Performed By: #### K U #### [facility] [address] [place] [address] Dr. Lisa Martinez pH (U) 5.5 [pH] Normal 5-9 [facility] Comment on above: Performed By: #### K U #### [facility] [address] [address] [address] Lisa Martinez RBC NONE SEEN Abnormal 0-2 [facility] Comment on above: Performed By: #### K U #### [facility] [address] [address] [address] Lisa Martinez SPEC GRAVITY 1.010 Normal 1.005-<=1.025 [facility] Comment on above: Performed By: #### K U #### [facility] [address] [address] [address] Lisa Martinez UA PROTEIN Negative Normal NEGATIVE/ TRACE [facility] Comment on above: Performed By: #### K U #### [facility] [address] [place] [address] Dr. Lisa Martinez Urobilinogen Qn (U) 0.2 {Mike'U}/dL Normal 0.2 - 1.0 [facility] Comment on above: Performed By: #### K U #### [facility] [address] [place] [address] Dr. Lisa Martinez WBC NONE SEEN Normal NONE SEEN [facility] Comment on above: Performed By: #### K U #### [facility] [address] [place] [address] Dr. Lisa Martinez US KIDNEYS BLADDERon 023 US KIDNEYS BLADDER EXAM: US KIDNEYS BLADDER HISTORY: Acute renal failure syndrome COMPARISON: None. TECHNIQUE: Transabdominal survey examination FINDINGS: Right: Measures 4.0 x 4.8 x 7.8 cm. Normal parenchymal thickness. There is a 4 mm specular reflection at the inferior pole of the right kidney. No mass or hydronephrosis. Left: Measures 4.2 x 4.7 9.9 cm. Normal parenchymal thickness. No mass or hydronephrosis. Bladder: Normal in outline and shape. Prevoid bladder volume is estimated at 297 mm. Post void bladder volume is estimated at 7 mm. Bilateral urine jets are noted. IMPRESSION: 4 mm specular reflection at the inferior pole of the right kidney consistent with a nonobstructing calculus. No hydronephrosis is identified. Electronically authenticated by: Gela ARANDA Date: 2022-11-13 16:01 Normal [facility] XR CHEST 1 Von 11-13-2022 XR CHEST 1 V EXAM: Chest x-ray HISTORY: Chest pain COMPARISON: 04/30/2022 TECHNIQUE: Single view of the chest. FINDINGS: Heart is upper limits of normal in size with a biventricular contour. Vascularity is unremarkable. Left lung is unremarkable. There are a few increased markings in the right lung base along with slight blunting of the right cost phrenic angle. No consolidation is noted. Right mid and upper lung field is unremarkable. Median sternotomy sutures are noted. Impression: 1. Borderline cardiac enlargement with a biventricular contour. 2. There are a few increased markings in the right lung base along with slight blunting of the right costophrenic angle. Findings could be chronic. Atelectasis or an early infiltrate cannot entirely be excluded. Clinical correlation is suggested. Electronically authenticated by: MEENA WOOTEN Date: 2022-11-13 12:20 Normal [facility] PROF CHEM 8 (BAS METB)on Anion gap [Moles/Vol] 13.5 mmol/L Normal [facility] Comment on above: Performed By: #### B MP ####[facility] [address] [address]Dr. Lisa Martinez Calcium [Mass/Vol] 9.2 mg/dL Normal 8.5-10.1 [facility] Comment on above: Performed By: #### B MP ####[facility] [address] [id number]. Lisa Martinez Chloride [Moles/Vol] 108 mmol/L Critically high 98-107 [facility] Comment on above: Performed By: #### B MP ####[facility] [address] [id number]. Lisa Martinez CO2 [Moles/Vol] 25.6 mmol/L Normal 21.0-32.0 [facility] Comment on above: Performed By: #### B MP ####[facility] [address] [id number]. Lisa Martinez Creatinine [Mass/Vol] 1.53 mg/dL Critically high 0.55-1.02 [facility] Comment on above: Performed By: #### B MP ####[facility] [address] [address]Dr. Lisa Martinez EGFR-AF KITTITIAN 39 mL/min/1.73m2 Critically low >=60 [facility] Comment on above: Performed By: #### B MP ####[facility] [address] [place], [place] [address]Dr. Lisa Martinez EGFR-NON AF KITTITIAN 32 mL/min/1.73m2 Critically low >=60 [facility] Comment on above: Performed By: #### B MP ####[facility] [address] [place], [place] [address]Dr. Lisa Martinez Glucose [Mass/Vol] 69 mg/dL Critically low 74-106 [facility] Comment on above: Performed By: #### B MP ####[facility] [address] [place], [place] [address]Dr. Lisa Martinez Potassium [Moles/Vol] 5.1 mmol/L Normal 3.5-5.1 [facility] Comment on above: Performed By: #### B MP ####[facility] [address] [place], [place] [address]Dr. Lisa Martinez Sodium [Moles/Vol] 142 mmol/L Normal 136-145 [facility] Comment on above: Performed By: #### B MP ####[facility] [address] [place], [place] [address]Dr. Lisa Martinez Urea nitrogen [Mass/Vol] 32.0 mg/dL Critically high 7.0-18.0 [facility] Comment on above: Performed By: #### B MP ####[facility] [address] [place], [place] [address]Dr. Lisa Martinez Urea nitrogen/Creatinin e [Mass ratio] 20.9 mg/mg Normal [facility] Comment on above: Performed By: #### B MP ####[facility] [address] [place], [place] [address]Dr. Lisa Martinez BNPon 10-08-2022 Natriuretic peptide B (Bld) [Mass/Vol] 3489.0 pg/mL Critically high <=1,800.0 [facility] Comment on above: Performed By: #### B SOLAR PROJECT COORDINATION SPECIALIST, BMP #### [facility] [address] [place] [address] Dr. Lisa Martinez CBC AUTO DIFFon 10-08-2022 BASO # 0.0 103/ul Normal 0.0-0.1 [facility] Comment on above: Performed By: #### B SOLAR PROJECT COORDINATION SPECIALIST, BMP #### [facility] [address] [place] [address] Dr. Lisa Martinez Basophils/100 WBC (Bld) 0.6 % Normal 0.2-2.0 [facility] Comment on above: Performed By: #### B SOLAR PROJECT COORDINATION SPECIALIST, BMP #### [facility] [address] [place] [address] Dr. Lisa Martinez EO # 0.2 103/ul Normal 0.0-0.7 [facility] Comment on above: Performed By: #### B SOLAR PROJECT COORDINATION SPECIALIST, BMP #### [facility] [address] [place] [address] Dr. Lisa Martinez Eosinophils/100 WBC (Bld) 3.5 % Normal 0.9-7.0 [facility] Comment on above: Performed By: #### B SOLAR PROJECT COORDINATION SPECIALIST, BMP #### [facility] [address] [place] [address] Dr. Lisa Martinez Erythrocyte distribution width (RBC) [Ratio] 15.5 % Critically high 11.0-15.0 [facility] Comment on above: Performed By: #### B SOLAR PROJECT COORDINATION SPECIALIST, BMP #### [facility] [address] [place] [address] Dr. Lisa Martinez Hematocrit (Bld) [Volume fraction] 31.8 % Critically low 36.0-48.0 [facility] Comment on above: Performed By: #### B SOLAR PROJECT COORDINATION SPECIALIST, BMP #### [facility] [address] [place] [address] Dr. Lisa Martinez Hemoglobin (Bld) [Mass/Vol] 9.8 g/dL Critically low 12.0-16.0 [facility] Comment on above: Performed By: #### B SOLAR PROJECT COORDINATION SPECIALIST, BMP #### [facility] [address] [address] [address] Lisa Martinez IG # 0.02 10e3/ul Normal 0.00-0.03 [facility] Comment on above: Performed By: #### B SOLAR PROJECT COORDINATION SPECIALIST, BMP #### [facility] [address] [address] [address] Lisa Martinez IG % 0.3 % Normal 0.0-0.5 [facility] Comment on above: Performed By: #### B SOLAR PROJECT COORDINATION SPECIALIST, BMP #### [facility] [address] [address] [address] Lisa Martinez LYMPH # 0.9 103/ul Critically low 1.2-3.8 [facility] Comment on above: Performed By: #### B SOLAR PROJECT COORDINATION SPECIALIST, BMP #### [facility] [address] [place] [address] Dr. Lisa Martinez Lymphocytes/100 WBC (Bld) 14.0 % Critically low 20.5-60.0 [facility] Comment on above: Performed By: #### B SOLAR PROJECT COORDINATION SPECIALIST, BMP #### [facility] [address] [address] [address] Lisa Martinez MANUAL DIFF REQ NO Normal [facility] Comment on above: Performed By: #### B SOLAR PROJECT COORDINATION SPECIALIST, BMP #### [facility] [address] [address] [address] Lisa Martinez MCH (RBC) [Entitic mass] 29.9 pg Normal 26.7-34.0 [facility] Comment on above: Performed By: #### B SOLAR PROJECT COORDINATION SPECIALIST, BMP #### [facility] [address] [address] [address] Lisa Martinez MCHC (RBC) [Mass/Vol] 30.8 g/dL Normal 29.9-35.2 [facility] Comment on above: Performed By: #### B SOLAR PROJECT COORDINATION SPECIALIST, BMP #### [facility] [address] [address] [address] Lisa Martinez MCV (RBC) [Entitic vol] 97.0 fL Normal 81.0-99.0 [facility] Comment on above: Performed By: #### B SOLAR PROJECT COORDINATION SPECIALIST, BMP #### [facility] [address] [place] [address] Dr. Lisa Martinez MONO # 0.8 103/ul Normal 0.3-0.8 [facility] Comment on above: Performed By: #### B SOLAR PROJECT COORDINATION SPECIALIST, BMP #### [facility] [address] [place] [address] Dr. Lisa Martinez Monocytes/100 WBC (Bld) 11.9 % Normal 1.7-12.0 [facility] Comment on above: Performed By: #### B SOLAR PROJECT COORDINATION SPECIALIST, BMP #### [facility] [address] [place] [address] Dr. Lisa Martinez NEUT # 4.4 103/ul Normal 1.4-6.5 [facility] Comment on above: Performed By: #### B SOLAR PROJECT COORDINATION SPECIALIST, BMP #### [facility] [address] [place] [address] Dr. Lisa Martinez Neutrophils/100 WBC (Bld) 69.7 % Normal 43.0-75.0 [facility] Comment on above: Performed By: #### B SOLAR PROJECT COORDINATION SPECIALIST, BMP #### [facility] [address] [place] [address] Dr. Lisa Martinez Platelet mean volume (Bld) [Entitic vol] 10.3 fL Normal 9.5-13.5 [facility] Comment on above: Performed By: #### B SOLAR PROJECT COORDINATION SPECIALIST, BMP #### [facility] [address] [place] [address] Dr. Lisa Martinez PLT 223 103/ul Normal 150-450 [facility] Comment on above: Performed By: #### B SOLAR PROJECT COORDINATION SPECIALIST, BMP #### [facility] [address] [place] [address] Dr. Lisa Martinez RBC 3.28 106/ul Critically low 4.20-5.40 [facility] Comment on above: Performed By: #### B SOLAR PROJECT COORDINATION SPECIALIST, BMP #### [facility] [address] [place] [address] Dr. Lisa Martinez WBC 6.3 103/ul Normal 4.0-11.0 [facility] Comment on above: Performed By: #### B SOLAR PROJECT COORDINATION SPECIALIST, BMP #### [facility] [address] [address] [address] Lisa Martinez DIGOXINon 10-08-2022 DIG 1.6 ng/mL Normal 0.9-2.0 [facility] Comment on above: Performed By: #### D IG ####[facility] [address] [address]Dr. Lisa Martinez POINT OF CARE GLUCOSEon -0 Glucose [Mass/Vol] 226 mg/dL Critically high 74-106 [facility] Comment on above: Performed By: #### P OCGLUC ####[facility] [address] [place], [place] [address]Dr. Lisa Martinez Glucose [Mass/Vol] 107 mg/dL Critically high 74-106 [facility] Comment on above: Performed By: #### B LDCX2 #### [facility] [address] [address] [address] Lisa Martinez PROF CHEM 8 (BAS METB)on Anion gap [Moles/Vol] 11.7 mmol/L Normal [facility] Comment on above: Performed By: #### B SOLAR PROJECT COORDINATION SPECIALIST, BMP #### [facility] [address] [place] [address] Dr. Lisa Martinez Calcium [Mass/Vol] 9.2 mg/dL Normal 8.5-10.1 [facility] Comment on above: Performed By: #### B SOLAR PROJECT COORDINATION SPECIALIST, BMP #### [facility] [address] [place] [address] Dr. Lisa Martinez Chloride [Moles/Vol] 102 mmol/L Normal 98-107 [facility] Comment on above: Performed By: #### B SOLAR PROJECT COORDINATION SPECIALIST, BMP #### [facility] [address] [place] [address] Dr. Lisa Martinez CO2 [Moles/Vol] 29.3 mmol/L Normal 21.0-32.0 [facility] Comment on above: Performed By: #### B SOLAR PROJECT COORDINATION SPECIALIST, BMP #### [facility] [address] [place] [address] Dr. Lisa Martinez Creatinine [Mass/Vol] 1.27 mg/dL Critically high 0.55-1.02 [facility] Comment on above: Performed By: #### B SOLAR PROJECT COORDINATION SPECIALIST, BMP #### [facility] [address] [address] [address] Lisa Martinez EGFR-AF KITTITIAN 49 mL/min/1.73m2 Critically low >=60 [facility] Comment on above: Performed By: #### B SOLAR PROJECT COORDINATION SPECIALIST, BMP #### [facility] [address] [address] [address] Lisa Martinez EGFR-NON AF KITTITIAN 40 mL/min/1.73m2 Critically low >=60 [facility] Comment on above: Performed By: #### B SOLAR PROJECT COORDINATION SPECIALIST, BMP #### [facility] [address] [address] [address] Lisa Martinez Glucose [Mass/Vol] 98 mg/dL Normal 74-106 [facility] Comment on above: Performed By: #### B SOLAR PROJECT COORDINATION SPECIALIST, BMP #### [facility] [address] [place] [address] Dr. Lisa Martinez Potassium [Moles/Vol] 4.0 mmol/L Normal 3.5-5.1 [facility] Comment on above: Performed By: #### B SOLAR PROJECT COORDINATION SPECIALIST, BMP #### [facility] [address] [address] [address] Lisa Martinez Sodium [Moles/Vol] 139 mmol/L Normal 136-145 [facility] Comment on above: Performed By: #### B SOLAR PROJECT COORDINATION SPECIALIST, BMP #### [facility] [address] [address] [address] Lisa Martinez Urea nitrogen [Mass/Vol] 26.0 mg/dL Critically high 7.0-18.0 [facility] Comment on above: Performed By: #### B SOLAR PROJECT COORDINATION SPECIALIST, BMP #### [facility] [address] [address] [address] Lisa Martinez Urea nitrogen/Creatinin e [Mass ratio] 20.5 mg/mg Normal [facility] Comment on above: Performed By: #### B SOLAR PROJECT COORDINATION SPECIALIST, BMP #### [facility] [address] [address] [address] Lisa Martinez BNPon 10-07-2022 Natriuretic peptide B (Bld) [Mass/Vol] 6039.0 pg/mL Critically high <=1,800.0 [facility] Comment on above: Performed By: #### B SOLAR PROJECT COORDINATION SPECIALIST ####[facility] [address] [address]Dr. Lisa Martinez CBC AUTO DIFFon 10-07-2022 BASO # 0.1 103/ul Normal 0.0-0.1 [facility] Comment on above: Performed By: #### K U #### [facility] [address] [address] [address] Lisa Martinez Basophils/100 WBC (Bld) 0.7 % Normal 0.2-2.0 [facility] Comment on above: Performed By: #### K U #### [facility] [address] [place] [address] Dr. Lisa Martinez EO # 0.3 103/ul Normal 0.0-0.7 [facility] Comment on above: Performed By: #### K U #### [facility] [address] [place] [address] Dr. Lisa Martinez Eosinophils/100 WBC (Bld) 4.0 % Normal 0.9-7.0 [facility] Comment on above: Performed By: #### K U #### [facility] [address] [place] [address] Dr. Lisa Martinez Erythrocyte distribution width (RBC) [Ratio] 15.6 % Critically high 11.0-15.0 [facility] Comment on above: Performed By: #### K U #### [facility] [address] [place] [address] Dr. Lisa Martinez Hematocrit (Bld) [Volume fraction] 34.0 % Critically low 36.0-48.0 [facility] Comment on above: Performed By: #### K U #### [facility] [address] [place] [address] Dr. Lisa Martinez Hemoglobin (Bld) [Mass/Vol] 10.4 g/dL Critically low 12.0-16.0 [facility] Comment on above: Performed By: #### K U #### [facility] [address] [address] [address] Lisa Martinez IG # 0.02 10e3/ul Normal 0.00-0.03 [facility] Comment on above: Performed By: #### K U #### [facility] [address] [address] [address] Lisa Martinez IG % 0.3 % Normal 0.0-0.5 [facility] Comment on above: Performed By: #### K U #### [facility] [address] [place] [address] Dr. Lisa Martinez LYMPH # 1.0 103/ul Critically low 1.2-3.8 [facility] Comment on above: Performed By: #### K U #### [facility] [address] [place] [address] Dr. Lisa Martinez Lymphocytes/100 WBC (Bld) 14.9 % Critically low 20.5-60.0 [facility] Comment on above: Performed By: #### K U #### [facility] [address] [place] [address] Dr. Lisa Martinez MANUAL DIFF REQ NO Normal [facility] Comment on above: Performed By: #### K U #### [facility] [address] [place] [address] Dr. Lisa Martinez MCH (RBC) [Entitic mass] 29.8 pg Normal 26.7-34.0 [facility] Comment on above: Performed By: #### K U #### [facility] [address] [place] [address] Dr. Lisa Martinez MCHC (RBC) [Mass/Vol] 30.6 g/dL Normal 29.9-35.2 [facility] Comment on above: Performed By: #### K U #### [facility] [address] [place] [address] Dr. Lisa Martinez MCV (RBC) [Entitic vol] 97.4 fL Normal 81.0-99.0 [facility] Comment on above: Performed By: #### K U #### [facility] [address] [address] [address] Lisa Martinez MONO # 0.6 103/ul Normal 0.3-0.8 [facility] Comment on above: Performed By: #### K U #### [facility] [address] [address] [address] Lisa Martinez Monocytes/100 WBC (Bld) 8.8 % Normal 1.7-12.0 [facility] Comment on above: Performed By: #### K U #### [facility] [address] [address] [address] Lisa Martinez NEUT # 4.9 103/ul Normal 1.4-6.5 [facility] Comment on above: Performed By: #### K U #### [facility] [address] [address] [address] Lisa Martinez Neutrophils/100 WBC (Bld) 71.3 % Normal 43.0-75.0 [facility] Comment on above: Performed By: #### K U #### [facility] [address] [address] [address] Lisa Martinez Platelet mean volume (Bld) [Entitic vol] 10.5 fL Normal 9.5-13.5 [facility] Comment on above: Performed By: #### K U #### [facility] [address] [address] [address] Lisa Martinez PLT 251 103/ul Normal 150-450 [facility] Comment on above: Performed By: #### K U #### [facility] [address] [address] [address] Lisa Martinez RBC 3.49 106/ul Critically low 4.20-5.40 [facility] Comment on above: Performed By: #### K U #### [facility] [address] [address] [address] Lisa Martinez WBC 6.8 103/ul Normal 4.0-11.0 [facility] Comment on above: Performed By: #### K U #### [facility] [address] [place] [address] Dr. Lisa Martinez DIGOXINon 10-07-2022 DIG 1.7 ng/mL Normal 0.9-2.0 [facility] Comment on above: Performed By: #### U RCX #### [facility] [address] [place] [address] Dr. Lisa Martinez POINT OF CARE GLUCOSEon Glucose [Mass/Vol] 185 mg/dL Critically high [address] [place] [id number] Comment on above: Performed By: #### B SOLAR PROJECT COORDINATION SPECIALIST, BMP #### [facility] [address] [place] [address] Dr. Lisa Martinez Glucose [Mass/Vol] 120 mg/dL Critically high [address] [place] [id number] Comment on above: Performed By: #### C VDTBH #### [facility] [address] [place] [address] Dr. Lisa Martinez Glucose [Mass/Vol] 218 mg/dL Critically high [address] [place] [id number] Comment on above: Performed By: #### B LDCX2 #### [facility] [address] [place] [address] Dr. Lisa Martinez PROF CHEM 8 (BAS METB)on Anion gap [Moles/Vol] 12.3 mmol/L Normal [facility] Comment on above: Performed By: #### B SOLAR PROJECT COORDINATION SPECIALIST, BMP #### [facility] [address] [place] [address] Dr. Lisa Martinez Calcium [Mass/Vol] 9.3 mg/dL Normal 8.5-10.1 [facility] Comment on above: Performed By: #### B SOLAR PROJECT COORDINATION SPECIALIST, BMP #### [facility] [address] [place] [address] Dr. Lisa Martinez Chloride [Moles/Vol] 102 mmol/L Normal 98-107 [facility] Comment on above: Performed By: #### B SOLAR PROJECT COORDINATION SPECIALIST, BMP #### [facility] [address] [place] [address] Dr. Lisa Martinez CO2 [Moles/Vol] 30.8 mmol/L Normal 21.0-32.0 [facility] Comment on above: Performed By: #### B SOLAR PROJECT COORDINATION SPECIALIST, BMP #### [facility] [address] [address] [address] Lisa Martinez Creatinine [Mass/Vol] 1.45 mg/dL Critically high 0.55-1.02 [facility] Comment on above: Performed By: #### B SOLAR PROJECT COORDINATION SPECIALIST, BMP #### [facility] [address] [address] [address] Lisa Martinez EGFR-AF KITTITIAN 42 mL/min/1.73m2 Critically low >=60 [facility] Comment on above: Performed By: #### B SOLAR PROJECT COORDINATION SPECIALIST, BMP #### [facility] [address] [place] [address] Dr. Lisa Martinez EGFR-NON AF KITTITIAN 34 mL/min/1.73m2 Critically low >=60 [facility] Comment on above: Performed By: #### B SOLAR PROJECT COORDINATION SPECIALIST, BMP #### [facility] [address] [place] [address] Dr. Lisa Martinez Glucose [Mass/Vol] 103 mg/dL Normal 74-106 [facility] Comment on above: Performed By: #### B SOLAR PROJECT COORDINATION SPECIALIST, BMP #### [facility] [address] [place] [address] Dr. Lisa Martinez Potassium [Moles/Vol] 4.1 mmol/L Normal 3.5-5.1 [facility] Comment on above: Performed By: #### B SOLAR PROJECT COORDINATION SPECIALIST, BMP #### [facility] [address] [place] [address] Dr. Lisa Martinez Sodium [Moles/Vol] 141 mmol/L Normal 136-145 [facility] Comment on above: Performed By: #### B SOLAR PROJECT COORDINATION SPECIALIST, BMP #### [facility] [address] [place] [address] Dr. Lisa Martinez Urea nitrogen [Mass/Vol] 26.0 mg/dL Critically high 7.0-18.0 [facility] Comment on above: Performed By: #### B SOLAR PROJECT COORDINATION SPECIALIST, BMP #### [facility] [address] [place] [address] Dr. Lisa Martinez Urea nitrogen/Creatinin e [Mass ratio] 17.9 mg/mg Normal [facility] Comment on above: Performed By: #### B SOLAR PROJECT COORDINATION SPECIALIST, BMP #### [facility] [address] [place], [place] [address] Dr. Lisa Martinez BNPon 10-06-2022 Natriuretic peptide B (Bld) [Mass/Vol] 6211.0 pg/mL Critically high <=1,800.0 [facility] Comment on above: Performed By: #### C MADM, LIVER, CMP, BNP ####[facility] [address] [id number] Martinez CARDIAC DONY ADMITon 023 CK [Catalytic activity/Vol] 50 U/L Normal 26-192 [facility] Comment on above: Performed By: #### C MADM, LIVER, CMP, BNP ####[facility] [address] [id number] Martinez CK.MB [Mass/Vol] 0.89 ng/mL Normal <=3.60 [facility] Comment on above: Performed By: #### C MADM, LIVER, CMP, BNP ####[facility] [address] [address]DrIngrid Martinez HSTROP 19.1 pg/mL Normal 4.0-51.3 [facility] Comment on above: Result Comment: CUT- OFF POINTS HAVE BEEN ESTABLISHED BASED ON THE FOURTH UNIVERSAL DEFINITIONS OF MYOCARDIAL INFARCTION. THE UPPER REFERENCE LIMIT (URL) OF TROPONIN, DEFINED THE 99TH PERCENTILE OF cTnI DISTRIBUTION IN A REFERENCE POPULATION, HAS BEEN CONFIRMED THE DECISION THRESHOLD FOR ME DIAGNOSIS. Performed By: #### C MADM, LIVER, CMP, BNP ####[facility] [address] [id number] Martinez LISSY 56 ng/mL Normal 9-82 [facility] Comment on above: Performed By: #### C MADM, LIVER, CMP, BNP ####[facility] [address] [id number] Martinez CBC AUTO DIFFon 10-06-2022 BASO # 0.1 103/ul Normal 0.0-0.1 [facility] Comment on above: Performed By: #### C BC #### [facility] [address] [address] [address] Lisa Martinez Basophils/100 WBC (Bld) 0.7 % Normal 0.2-2.0 [facility] Comment on above: Performed By: #### C BC #### [facility] [address] [place] [address] Dr. Lisa Martinez EO # 0.2 103/ul Normal 0.0-0.7 [facility] Comment on above: Performed By: #### C BC #### [facility] [address] [place] [address] Dr. Lisa Martinez Eosinophils/100 WBC (Bld) 2.0 % Normal 0.9-7.0 [facility] Comment on above: Performed By: #### C BC #### [facility] [address] [place] [address] Dr. Lisa Martinez Erythrocyte distribution width (RBC) [Ratio] 15.7 % Critically high 11.0-15.0 [facility] Comment on above: Performed By: #### C BC #### [facility] [address] [place] [address] Dr. Lisa Martinez Hematocrit (Bld) [Volume fraction] 32.4 % Critically low 36.0-48.0 [facility] Comment on above: Performed By: #### C BC #### [facility] [address] [place] [address] Dr. Lisa Martinez Hemoglobin (Bld) [Mass/Vol] 10.0 g/dL Critically low 12.0-16.0 [facility] Comment on above: Performed By: #### C BC #### [facility] [address] [place] [address] Dr. Lisa Martinez IG # 0.02 10e3/ul Normal 0.00-0.03 [facility] Comment on above: Performed By: #### C BC #### [facility] [address] [place] [address] Dr. Lisa Martinez IG % 0.3 % Normal 0.0-0.5 [facility] Comment on above: Performed By: #### C BC #### [facility] [address] [address] [address] Lisa Martinez LYMPH # 0.7 103/ul Critically low 1.2-3.8 [facility] Comment on above: Performed By: #### C BC #### [facility] [address] [address] [address] Lisa Martinez Lymphocytes/100 WBC (Bld) 9.2 % Critically low 20.5-60.0 [facility] Comment on above: Performed By: #### C BC #### [facility] [address] [place] [address] Dr. Lisa Martinez MANUAL DIFF REQ NO Normal [facility] Comment on above: Performed By: #### C BC #### [facility] [address] [place] [address] Dr. Lisa Martinez MCH (RBC) [Entitic mass] 29.8 pg Normal 26.7-34.0 [facility] Comment on above: Performed By: #### C BC #### [facility] [address] [place] [address] Dr. Lisa Martinez MCHC (RBC) [Mass/Vol] 30.9 g/dL Normal 29.9-35.2 [facility] Comment on above: Performed By: #### C BC #### [facility] [address] [place] [address] Dr. Lisa Martinez MCV (RBC) [Entitic vol] 96.4 fL Normal 81.0-99.0 [facility] Comment on above: Performed By: #### C BC #### [facility] [address] [place] [address] Dr. Lisa Martinez MONO # 0.5 103/ul Normal 0.3-0.8 [facility] Comment on above: Performed By: #### C BC #### [facility] [address] [place] [address] Dr. Lisa Martinez Monocytes/100 WBC (Bld) 6.4 % Normal 1.7-12.0 [facility] Comment on above: Performed By: #### C BC #### [facility] [address] [address] [address] Lisa Martinez NEUT # 6.2 103/ul Normal 1.4-6.5 [facility] Comment on above: Performed By: #### C BC #### [facility] [address] [address] [address] Lisa Martinez Neutrophils/100 WBC (Bld) 81.4 % Critically high 43.0-75.0 [facility] Comment on above: Performed By: #### C BC #### [facility] [address] [place] [address] Dr. Lisa Martinez Platelet mean volume (Bld) [Entitic vol] 10.2 fL Normal 9.5-13.5 [facility] Comment on above: Performed By: #### C BC #### [facility] [address] [place] [address] Dr. Lisa Martinez PLT 228 103/ul Normal 150-450 [facility] Comment on above: Performed By: #### C BC #### [facility] [address] [place] [address] Dr. Lisa Martinez RBC 3.36 106/ul Critically low 4.20-5.40 [facility] Comment on above: Performed By: #### C BC #### [facility] [address] [place] [address] Dr. Lisa Martinez WBC 7.6 103/ul Normal 4.0-11.0 [facility] Comment on above: Performed By: #### C BC #### [facility] [address] [place] [address] Dr. Lisa Martinez CTA CHEST WO W CONon 10-06-2 023 CTA CHEST WO W CON EXAMINATION: CTA KAYCEE ST WO W CON HISTORY: SHORTNESS OF BREATH COMPARISON: None. TECHNIQUE: CT chest with intravenous contrast was performed with timing for the evaluation for pulmonary arteries. Multiplanar reformats were performed. MIP (maximum intensity projection) images or 3D post processing was performed. Dose reduction techniques were achieved by using automated exposure control and/or adjustment of mA and/or kV according to patient size and/or use of iterative reconstruction technique. FINDINGS: Lungs: Small right pleural effusion with right greater than left lower lobe consolidation and patchy bilateral groundglass attenuations. Finding is representing multifocal pneumonia or pulmonary edema. There is bilateral centrilobular emphysema. Airways: Normal. Mediastinum: There are AP window and prevascular lymphadenopathy, measuring up to 1 cm in short axis dimension, nonspecific and can be reactive. Aorta: No aneurysm. Cardiac: Cardiomegaly and dilated right atrium and right ventricle and reflux of contrast into the IVC and hepatic veins, likely due to right heart failure. No pericardial effusion.Median sternotomy wires are in place. Status post aortic valve replacement. Pulmonary vasculature: Dilated main pulmonary artery measures 3.8 cm, likely representing pulmonary hypertension. Diagnostic opacification of pulmonary arteries without evidence of pulmonary embolus. Normal morphology. Bones: No acute bony abnormality. Axilla: No adenopathy. Thyroid gland: No abnormality demonstrated on provided imaging. Soft tissues: Unremarkable. Upper abdomen: Unremarkable. Additional findings: None. IMPRESSION: No evidence of pulmonary embolus. Evidence of pulmonary hypertension as described above. Evidence of increased right heart pressure and right heart failure. Small bowel right pleural effusion with right greater than left lower lobe consolidation. Finding is representing multifocal pneumonia or pulmonary edema. AP window and prevascular lymphadenopathy, measuring up to 1 cm in short axis dimension, nonspecific and can be reactive. Electronically authenticated by: JENNY MARQUEZ Date: 2022-10-06 14:18 Normal [facility] Covid-19 PCR (CVDTB)on 09-08 SARS-CoV-2 (COVID-19) RNA RACIEL+probe Ql (Unsp spec) Not detected Normal NOT DETECTED [facility] Comment on above: Result Comment: When diagnostic testing is negative, the possibility of a false negative should be considered in the context of a patient's recent exposures and the presence of clinical signs and symptoms consistent with SARS-CoV-2. This test is not yet approved or cleared by the [place] FDA. When there are no FDA-approved or cleared tests available, and other criteria are met, FDA can make tests available under an emergency access mechanism called an Emergency Use Authorization (EUA). The EUA for this test is supported by the [place] of Health and Human Service's declaration that circumstances exist to justify the emergency use of in vitro diagnostics for the detection and/or diagnosis of the virus that causes COVID-19. This EUA will remain in effect for the duration of the COVID-19 declaration justifying emergency of IVDs, unless it is terminated or revoked by the FDA (after which the test may no longer be used). Performed By: #### C VDTBH ####[facility] [address] [address]DrIngrid Martinez DIGOXINon 10-06-2022 DIG 2.3 ng/mL Critically high 0.9-2.0 [facility] Comment on above: Performed By: #### C BC #### [facility] [address] [address] [address] Lisa Martinez LIVER PROFILEon 10-06-2022 BILI, CONJUGATED 0.4 mg/dL Critically high 0.0-0.2 [facility] Comment on above: Performed By: #### C MADM, LIVER, CMP, BNP ####[facility] [address] [address]DrIngrid Martinez POINT OF CARE GLUCOSEon 09-08 Glucose [Mass/Vol] 154 mg/dL Critically high 74-106 [facility] Comment on above: Performed By: #### B SOLAR PROJECT COORDINATION SPECIALIST, BMP #### [facility] [address] [place] [address] Dr. Lisa Martinez Glucose [Mass/Vol] 77 mg/dL Normal 74-106 [facility] Comment on above: Performed By: #### B SOLAR PROJECT COORDINATION SPECIALIST, BMP #### [facility] [address] [place] [address] Dr. Lisa Martinez PROF 14(COMP METB)on 023 Albumin [Mass/Vol] 3.5 g/dL Normal 3.4-5.0 [facility] Comment on above: Performed By: #### C MADM, LIVER, CMP, BNP ####[facility] [address] [address]DrIngrid Martinez Albumin/Globulin [Mass ratio] 0.8 {ratio} Normal [facility] Comment on above: Performed By: #### C MADM, LIVER, CMP, BNP ####[facility] [address] [address]Dr. Lisa Martinez ALP [Catalytic activity/Vol] 94 U/L Normal 46-116 [facility] Comment on above: Performed By: #### C MADM, LIVER, CMP, BNP ####[facility] [address] [address]Dr. Lisa Martinez ALT [Catalytic activity/Vol] 13 U/L Critically low 14-59 [facility] Comment on above: Performed By: #### C MADM, LIVER, CMP, BNP ####[facility] [address] [address]Dr. Lisa Martinez Anion gap [Moles/Vol] 11.1 mmol/L Normal [facility] Comment on above: Performed By: #### C MADM, LIVER, CMP, BNP ####[facility] [address] [address]Dr. Lisa Martinez AST [Catalytic activity/Vol] 15 U/L Normal 15-37 [facility] Comment on above: Performed By: #### C MADM, LIVER, CMP, BNP ####[facility] [address] [address]Dr. Lisa Martinez Bilirubin [Mass/Vol] 1.6 mg/dL Critically high 0.2-1.0 [facility] Comment on above: Performed By: #### C MADM, LIVER, CMP, BNP ####[facility] [address] [address]Dr. Lisa Martinez Calcium [Mass/Vol] 9.2 mg/dL Normal 8.5-10.1 [facility] Comment on above: Performed By: #### C MADM, LIVER, CMP, BNP ####[facility] [address] [address]Dr. Fabianachapis Martinez Chloride [Moles/Vol] 106 mmol/L Normal 98-107 [facility] Comment on above: Performed By: #### C MADM, LIVER, CMP, BNP ####[facility] [address] [address]Dr. Lisa Martinez CO2 [Moles/Vol] 29.0 mmol/L Normal 21.0-32.0 [facility] Comment on above: Performed By: #### C MADM, LIVER, CMP, BNP ####[facility] [address] [id number]. Lisa Martinez Creatinine [Mass/Vol] 1.43 mg/dL Critically high 0.55-1.02 [facility] Comment on above: Performed By: #### C MADM, LIVER, CMP, BNP ####[facility] [address] [id number]. Lisa Martinez EGFR-AF KITTITIAN 42 mL/min/1.73m2 Critically low >=60 [facility] Comment on above: Performed By: #### C MADM, LIVER, CMP, BNP ####[facility] [address] [id number]. Lisa Juan EGFR-NON AF KITTITIAN 35 mL/min/1.73m2 Critically low >=60 [facility] Comment on above: Performed By: #### C MADM, LIVER, CMP, BNP ####[facility] [address] [id number]. Lisa Martinez Globulin (S) [Mass/Vol] 4.2 g/dL Normal [facility] Comment on above: Performed By: #### C MADM, LIVER, CMP, BNP ####[facility] [address] [place] [id number]. Lisa Martinez Glucose [Mass/Vol] 114 mg/dL Critically high 74-106 [facility] Comment on above: Performed By: #### C MADM, LIVER, CMP, BNP ####[facility] [address] [place] [id number]. Lisa Martinez Potassium [Moles/Vol] 4.1 mmol/L Normal 3.5-5.1 [facility] Comment on above: Performed By: #### C MADM, LIVER, CMP, BNP ####[facility] [address] [place] [id number]. Lisa Juan Protein [Mass/Vol] 7.7 g/dL Normal 6.4-8.2 [facility] Comment on above: Performed By: #### C MADM, LIVER, CMP, BNP ####[facility] [address] [address]DrIngrid Martinez Sodium [Moles/Vol] 142 mmol/L Normal 136-145 [facility] Comment on above: Performed By: #### C MADM, LIVER, CMP, BNP ####[facility] [address] [address]Dr. Lisa Martinez Urea nitrogen [Mass/Vol] 26.0 mg/dL Critically high 7.0-18.0 [facility] Comment on above: Performed By: #### C MADM, LIVER, CMP, BNP ####[facility] [address] [address]Dr. Lisa Martinez Urea nitrogen/Creatinin e [Mass ratio] 18.2 mg/mg Normal [facility] Comment on above: Performed By: #### C MADM, LIVER, CMP, BNP ####[facility] [address] [address]DrIngrid Martinez PROTIMEon 10-06-2022 INR Coag (PPP) [Relative time] 1.09 {INR} Normal [facility] Comment on above: Performed By: #### B SOLAR PROJECT COORDINATION SPECIALIST, BMP #### [facility] [address] [place] [address] Dr. Lisa Martinez INR GUIDELINES SEE BELOW Normal [facility] Comment on above: Result Comment: ANTONY RED INR: 2.0 - 3.0 CONDITIONS NOT LISTED BELOW 2.5 - 3.5 FOR PROSTHETIC HEART VALVE REPLACEMENT 2.5 - 3.5 RECURRENT THROMBOSIS Performed By: #### B SOLAR PROJECT COORDINATION SPECIALIST, BMP #### [facility] [address] [address] [address] Lisa Martinez PT Coag (PPP) [Time] 11.5 s Normal 9.0-11.6 [facility] Comment on above: Performed By: #### B SOLAR PROJECT COORDINATION SPECIALIST, BMP #### [facility] [address] [place] [address] Dr. Lisa Martinez PTTon 10-06-2022 aPTT Coag (Bld) [Time] 26.5 s Normal 22.3-36.2 [facility] Comment on above: Performed By: #### B ROBIN, PEREZ #### [facility] [address] [place] [address] Dr. Lisa Martinez ECHOCARDIO M/2D COMPLETEon 1 08-27-2021 ECHOCARDIO M/2D COMPLETE Patient: JENNI VILLEGAS Exam Date: 06/26/2022 : 1940 Gender:F Ordering : FARZANEH ARNDT Admission #: [id number] Family : Order #: [id number] CLICK HERE TO VIEW EXAM ECHOCARDIOGRAM REPORT PROCEDURE: CARDIO PULMONARY ECHOCARDIO M/2D COMP INDICATIONS: Acute on chronic CHF, Aortic valve disorder, S/P bioprosthetic AoV replacement COMPARISON: None. DESCRIPTION: COMPLETE ECHOCARDIOGRAM Real-time transthoracic echocardiography with 2D, M-mode, spectral and color flow Doppler performed. QUALITY: Technical quality was good. LEFT VENTRICLE: Normal chamber size. Thickened posterior wall. Global left ventricular systolic function is normal. Systolic function is normal. LV EF: Visual estimation of left ventricular ejection fraction is 55-60% DIASTOLIC: ATRIAL SEPTUM: LEFT ATRIUM: Severe dilatation. RIGHT ATRIUM: Severe dilatation. RIGHT VENTRICLE: Normal chamber size. Normal right ventricular systolic function. TRICUSPID VALVE: Normal mobility and thickness. No stenosis with moderate regurgitation. Moderate pulmonary hypertension. RVSP 51mmHg MITRAL VALVE: Moderately thickened with decreased mobility. No mitral valve prolapse. Mild mitral valve stenosis. There is no mitral annular calcification. Mild mitral regurgitation. Mean gradient 6.4 mmHg, mitral valve area 2.75 cm?. AORTIC VALVE: Bio-Prosthetic valve appears well seated in the aortic position with abnormal doppler flow. Doppler velocity suggest moderate aortic valve stenosis. No significant perivalvular leak seen. peak velocity 3.1 m/s, mean gradient 25.4. Trivial aortic regurgitation. AORTIC ROOT: Normal diameter and appearance. PULMONIC VALVE: Normal thickness and mobility. No stenosis. No regurgitation. PERICARDIUM: No evidence of pericardial effusion. IVC: Collapses with inspirations. Normal size. PLEURA: CONCLUSION: 1. Normal ventricular systolic function. LVEF is 55 to 60%. 2. Bioprosthetic valve is seen in the aortic position with elevated Doppler flows. 3. Mild mitral stenosis with mild regurgitation. 4. Moderate tricuspid regurgitation. 5. Moderately elevated right-sided pressures. 6. No pericardial effusion. 7. Severe biatrial dilatation. Adult Echocardiography Procedure Report Left Ventricle LVEDD (3.7 - 5.6 cm): 4.43 cm LVESD (2.2 - 4.0 cm): 3.28 cm LVIVS thickness (0.6 - 1.2 cm): 1.14 cm LVPW thickness (0.5 - 1.0 cm): 1.52 cm e': 0.10 m/s LVOT Max Gradient: 1.69 mm[Hg], 2.07 mm[Hg] Peak Velocity (LVOT): 0.65 m/s, 0.72 m/s Mean Velocity (LVOT): 0.49 m/s, 0.52 m/s LVOT Diameter 2.05 cm Left Ventricular Ejection Fraction: 55-60 % Left Atrium LA Volume Index (2D A2C): 110.19 ml, 110.19 ml Left Atrium Systolic Dimension: 4.98 cm Mitral Valve Right Ventricle RV Internal Diastolic Dimension: 3.09 cm Aorta AO Root Diam: 3.14 cm Ascending Ao Diam: 3.08 cm Aortic Valve AoV Area (Peak Merrick): 0.79 cm2, 0.83 cm2, 0.76 cm2 AoV Area (VTI): 0.81 cm2, 0.87 cm2, 0.77 cm2 Deceleration Dubois: 0.72 m/s2 Pressure Half-Time: 1.18 s Peak Velocity(Antegrade Flow): 2.56 m/s, 3.11 m/s Peak Gradient(Antegrade Flow): 26.22 mm[Hg], 38.61 mm[Hg] Mean Velocity(Antegrade Flow): 1.81 m/s, 2.47 m/s Mean Gradient(Antegrade Flow): 15.17 mm[Hg], 25.43 mm[Hg] Velocity Time Integral: 60.65 cm, 79.07 cm Tricuspid Valve Peak Velocity (Regurgitant Flow): 3.01 m/s, 3.48 m/s, 3.04 m/s Peak Velocity: 0.63 m/s Pulmonic Valve Mean Gradient: 3.58 mm[Hg], 3.03 mm[Hg] Mean Velocity: 0.87 m/s, 0.81 m/s Peak Velocity: 1.37 m/s, 1.24 m/s Peak Gradient: 7.50 mm[Hg], 6.16 mm[Hg] Right Atrium Right Atrium Systolic Pressure: 75.36 ml, 75.36 ml Dictated by: Josefina Chao M.D. on 06/29/2022 at 15:21 Approved by: Josefina Chao M.D. on 06/29/2022 at 15:34 Normal [facility] CBC AUTO DIFFon 05-02-2022 BASO # 0.0 103/ul Normal 0.0-0.1 [facility] Comment on above: Performed By: #### C BC #### [facility] [address] [place] [address] Dr. Lisa Martinez Basophils/100 WBC (Bld) 0.4 % Normal 0.2-2.0 [facility] Comment on above: Performed By: #### C BC #### [facility] [address] [place] [address] Dr. Lisa Martinez EO # 0.1 103/ul Normal 0.0-0.7 [facility] Comment on above: Performed By: #### C BC #### [facility] [address] [place] [address] Dr. Lisa Martinez Eosinophils/100 WBC (Bld) 1.8 % Normal 0.9-7.0 [facility] Comment on above: Performed By: #### C BC #### [facility] [address] [place] [address] Dr. Lisa Martinez Erythrocyte distribution width (RBC) [Ratio] 13.3 % Normal 11.0-15.0 [facility] Comment on above: Performed By: #### C BC #### [facility] [address] [place] [address] Dr. Lisa Martinez Hematocrit (Bld) [Volume fraction] 38.4 % Normal 36.0-48.0 [facility] Comment on above: Performed By: #### C BC #### [facility] [address] [place] [address] Dr. Lisa Martinez Hemoglobin (Bld) [Mass/Vol] 12.0 g/dL Normal 12.0-16.0 [facility] Comment on above: Performed By: #### C BC #### [facility] [address] [place] [address] Dr. Lisa Martinez IG # 0.09 10e3/ul Critically high 0.00-0.03 [facility] Comment on above: Performed By: #### C BC #### [facility] [address] [place] [address] Dr. Lisa Martinez IG % 1.6 % Critically high 0.0-0.5 [facility] Comment on above: Performed By: #### C BC #### [facility] [address] [place] [address] Dr. Lisa Martinez LYMPH # 0.9 103/ul Critically low 1.2-3.8 [facility] Comment on above: Performed By: #### C BC #### [facility] [address] [place] [address] Dr. Lisa Martinez Lymphocytes/100 WBC (Bld) 16.0 % Critically low 20.5-60.0 [facility] Comment on above: Performed By: #### C BC #### [facility] [address] [place] [address] Dr. Lisa Martinez MANUAL DIFF REQ NO Normal [facility] Comment on above: Performed By: #### C BC #### [facility] [address] [place] [address] Dr. Lisa Martinez MCH (RBC) [Entitic mass] 30.2 pg Normal 26.7-34.0 [facility] Comment on above: Performed By: #### C BC #### [facility] [address] [place] [address] Dr. Lisa Martinez MCHC (RBC) [Mass/Vol] 31.3 g/dL Normal 29.9-35.2 [facility] Comment on above: Performed By: #### C BC #### [facility] [address] [place] [address] Dr. Lisa Martinez MCV (RBC) [Entitic vol] 96.7 fL Normal 81.0-99.0 [facility] Comment on above: Performed By: #### C BC #### [facility] [address] [address] [address] Lisa Martinez MONO # 0.6 103/ul Normal 0.3-0.8 [facility] Comment on above: Performed By: #### C BC #### [facility] [address] [address] [address] Lisa Martinez Monocytes/100 WBC (Bld) 11.3 % Normal 1.7-12.0 [facility] Comment on above: Performed By: #### C BC #### [facility] [address] [address] [address] Lisa Martinez NEUT # 3.9 103/ul Normal 1.4-6.5 [facility] Comment on above: Performed By: #### C BC #### [facility] [address] [place] [address] Dr. Lisa Martinez Neutrophils/100 WBC (Bld) 68.9 % Normal 43.0-75.0 [facility] Comment on above: Performed By: #### C BC #### [facility] [address] [place] [address] Dr. Lisa Martinez Platelet mean volume (Bld) [Entitic vol] 10.7 fL Normal 9.5-13.5 [facility] Comment on above: Performed By: #### C BC #### [facility] [address] [place] [address] Dr. Lisa Martinez PLT 164 103/ul Normal 150-450 [facility] Comment on above: Performed By: #### C BC #### [facility] [address] [place] [address] Dr. Lisa Martinez RBC 3.97 106/ul Critically low 4.20-5.40 [facility] Comment on above: Performed By: #### C BC #### [facility] [address] [address] [address] Lisa Martinez WBC 5.6 103/ul Normal 4.0-11.0 [facility] Comment on above: Performed By: #### C BC #### [facility] [address] [address] [address] Lisa Martinez PROF 14(COMP METB)on 022 Albumin [Mass/Vol] 2.8 g/dL Critically low 3.4-5.0 [facility] Comment on above: Performed By: #### U RCX #### [facility] [address] [address] [address] Lisa Martinez Albumin/Globulin [Mass ratio] 0.7 {ratio} Normal [facility] Comment on above: Performed By: #### U RCX #### [facility] [address] [address] [address] Lisa Martinez ALP [Catalytic activity/Vol] 74 U/L Normal 46-116 [facility] Comment on above: Performed By: #### U RCX #### [facility] [address] [place] [address] Dr. Lisa Martinez ALT [Catalytic activity/Vol] 11 U/L Critically low 14-59 [facility] Comment on above: Performed By: #### U RCX #### [facility] [address] [address] [address] Lisa Martinez Anion gap [Moles/Vol] 13.5 mmol/L Normal [facility] Comment on above: Performed By: #### U RCX #### [facility] [address] [place] [address] Dr. Lisa Martinez AST [Catalytic activity/Vol] 14 U/L Critically low 15-37 [facility] Comment on above: Performed By: #### U RCX #### [facility] [address] [address] [address] Lisa Martinez Bilirubin [Mass/Vol] 0.5 mg/dL Normal 0.2-1.0 [facility] Comment on above: Performed By: #### U RCX #### [facility] [address] [address] [address] Lisa Martinez Calcium [Mass/Vol] 8.5 mg/dL Normal 8.5-10.1 [facility] Comment on above: Performed By: #### U RCX #### [facility] [address] [address] [address] Lisa Martinez Chloride [Moles/Vol] 103 mmol/L Normal 98-107 [facility] Comment on above: Performed By: #### U RCX #### [facility] [address] [address] [address] Lisa Martinez CO2 [Moles/Vol] 24.5 mmol/L Normal 21.0-32.0 [facility] Comment on above: Performed By: #### U RCX #### [facility] [address] [address] [address] Lisa Martinez Creatinine [Mass/Vol] 1.43 mg/dL Critically high 0.55-1.02 [facility] Comment on above: Performed By: #### U RCX #### [facility] [address] [place] [address] Dr. Lisa Martinez EGFR-AF KITTITIAN 42 mL/min/1.73m2 Critically low >=60 [facility] Comment on above: Performed By: #### U RCX #### [facility] [address] [place] [address] Dr. Lisa Martinez EGFR-NON AF KITTITIAN 35 mL/min/1.73m2 Critically low >=60 [facility] Comment on above: Performed By: #### U RCX #### [facility] [address] [place] [address] Dr. Lisa Martinez Globulin (S) [Mass/Vol] 4.3 g/dL Normal [facility] Comment on above: Performed By: #### U RCX #### [facility] [address] [address] [address] Lisa Martinez Glucose [Mass/Vol] 142 mg/dL Critically high 74-106 [facility] Comment on above: Performed By: #### U RCX #### [facility] [address] [address] [address] Lisa Martinez Potassium [Moles/Vol] 4.0 mmol/L Normal 3.5-5.1 [facility] Comment on above: Performed By: #### U RCX #### [facility] [address] [address] [address] Lisa Martinez Protein [Mass/Vol] 7.1 g/dL Normal 6.4-8.2 [facility] Comment on above: Performed By: #### U RCX #### [facility] [address] [place] [address] Dr. Lisa Martinez Sodium [Moles/Vol] 137 mmol/L Normal 136-145 [facility] Comment on above: Performed By: #### U RCX #### [facility] [address] [place] [address] Dr. Lisa Martinez Urea nitrogen [Mass/Vol] 31.0 mg/dL Critically high 7.0-18.0 [facility] Comment on above: Performed By: #### U RCX #### [facility] [address] [place] [address] Dr. Lisa Martinez Urea nitrogen/Creatinin e [Mass ratio] 21.7 mg/mg Normal [facility] Comment on above: Performed By: #### U RCX #### [facility] [address] [place] [address] Dr. Lisa Martinez CBC AUTO DIFFon 05-01-2022 BASO # 0.0 103/ul Normal 0.0-0.1 [facility] Comment on above: Performed By: #### U RCX #### [facility] [address] [place] [address] Dr. Lisa Martinez Basophils/100 WBC (Bld) 0.3 % Normal 0.2-2.0 [facility] Comment on above: Performed By: #### U RCX #### [facility] [address] [place] [address] Dr. Lisa Martinez EO # 0.1 103/ul Normal 0.0-0.7 [facility] Comment on above: Performed By: #### U RCX #### [facility] [address] [place] [address] Dr. Lisa Martinez Eosinophils/100 WBC (Bld) 0.9 % Normal 0.9-7.0 [facility] Comment on above: Performed By: #### U RCX #### [facility] [address] [address] [address] Lisa Martinez Erythrocyte distribution width (RBC) [Ratio] 13.4 % Normal 11.0-15.0 [facility] Comment on above: Performed By: #### U RCX #### [facility] [address] [address] [address] Lisa Martinez Hematocrit (Bld) [Volume fraction] 41.6 % Normal 36.0-48.0 [facility] Comment on above: Performed By: #### U RCX #### [facility] [address] [place] [address] Dr. Lisa Martinez Hemoglobin (Bld) [Mass/Vol] 12.8 g/dL Normal 12.0-16.0 [facility] Comment on above: Performed By: #### U RCX #### [facility] [address] [place] [address] Dr. Lisa Martinez IG # 0.16 10e3/ul Critically high 0.00-0.03 [facility] Comment on above: Performed By: #### U RCX #### [facility] [address] [place] [address] Dr. Lisa Martinez IG % 1.6 % Critically high 0.0-0.5 [facility] Comment on above: Performed By: #### U RCX #### [facility] [address] [address] [address] Lisa Martinez LYMPH # 0.8 103/ul Critically low 1.2-3.8 [facility] Comment on above: Performed By: #### U RCX #### [facility] [address] [address] [address] Lisa Martinez Lymphocytes/100 WBC (Bld) 7.8 % Critically low 20.5-60.0 [facility] Comment on above: Performed By: #### U RCX #### [facility] [address] [place] [address] Dr. Lisa Martinez MANUAL DIFF REQ NO Normal [facility] Comment on above: Performed By: #### U RCX #### [facility] [address] [address] [address] Lisa Martinez MCH (RBC) [Entitic mass] 29.8 pg Normal 26.7-34.0 [facility] Comment on above: Performed By: #### U RCX #### [facility] [address] [place] [address] Dr. Lisa Martinez MCHC (RBC) [Mass/Vol] 30.8 g/dL Normal 29.9-35.2 [facility] Comment on above: Performed By: #### U RCX #### [facility] [address] [place] [address] Dr. Lisa Martinez MCV (RBC) [Entitic vol] 96.7 fL Normal 81.0-99.0 [facility] Comment on above: Performed By: #### U RCX #### [facility] [address] [place] [address] Dr. Lisa Martinez MONO # 0.8 103/ul Normal 0.3-0.8 [facility] Comment on above: Performed By: #### U RCX #### [facility] [address] [place] [address] Dr. Lisa Martinez Monocytes/100 WBC (Bld) 8.4 % Normal 1.7-12.0 [facility] Comment on above: Performed By: #### U RCX #### [facility] [address] [place] [address] Dr. Lisa Martinez NEUT # 7.9 103/ul Critically high 1.4-6.5 [facility] Comment on above: Performed By: #### U RCX #### [facility] [address] [place] [address] Dr. Lisa Martinez Neutrophils/100 WBC (Bld) 81.0 % Critically high 43.0-75.0 [facility] Comment on above: Performed By: #### U RCX #### [facility] [address] [place] [address] Dr. Lisa Martinez Platelet mean volume (Bld) [Entitic vol] 10.6 fL Normal 9.5-13.5 [facility] Comment on above: Performed By: #### U RCX #### [facility] [address] [place] [address] Dr. Lisa Martinez PLT 211 103/ul Normal 150-450 [facility] Comment on above: Performed By: #### U RCX #### [facility] [address] [place] [address] Dr. Lisa Martinez RBC 4.30 106/ul Normal 4.20-5.40 [facility] Comment on above: Performed By: #### U RCX #### [facility] [address] [place] [address] Dr. Lisa Martinez WBC 9.8 103/ul Normal 4.0-11.0 [facility] Comment on above: Performed By: #### U RCX #### [facility] [address] [place] [address] Dr. Lisa Martinez DIGOXINon 05-01-2022 DIG 0.7 ng/mL Critically low 0.9-2.0 [facility] Comment on above: Performed By: #### B SOLAR PROJECT COORDINATION SPECIALIST, BMP #### [facility] [address] [place] [address] Dr. Lisa Martinez GI PANEL (PCR)on 05-01-2022 Adenovirus F 40/41 Not detected Normal NOT DETECTED [facility] Comment on above: Performed By: #### B LDCX2 #### [facility] [address] [place] [address] Dr. Lisa Martinez Astrovirus Not detected Normal NOT DETECTED [facility] Comment on above: Performed By: #### B LDCX2 #### [facility] [address] [place] [address] Dr. Lisa Martinez C. Diff toxin A/B Not detected Normal NOT DETECTED [facility] Comment on above: Performed By: #### B LDCX2 #### [facility] [address] [place] [address] Dr. Lisa Martinez Campylobacter Not detected Normal NOT DETECTED [facility] Comment on above: Performed By: #### B LDCX2 #### [facility] [address] [place] [address] Dr. Lisa Martinez Cryptosporidium Not detected Normal NOT DETECTED [facility] Comment on above: Performed By: #### B LDCX2 #### [facility] [address] [place] [address] Dr. Lisa Martinez Cyclos. Cayetanensis Not detected Normal NOT DETECTED [facility] Comment on above: Performed By: #### B LDCX2 #### [facility] [address] [place] [address] Dr. Lisa Martinez E. Coli O157 Not Applicable Normal Not Applicable [facility] Comment on above: Performed By: #### B LDCX2 #### [facility] [address] [place] [address] Dr. Lisa Martinez E. histolytica Not detected Normal NOT DETECTED [facility] Comment on above: Performed By: #### B LDCX2 #### [facility] [address] [place] [address] Dr. Lisa Martinez EAEC Not detected Normal NOT DETECTED [facility] Comment on above: Performed By: #### B LDCX2 #### [facility] [address] [place] [address] Dr. Lisa Martinez EIEC Not detected Normal NOT DETECTED [facility] Comment on above: Performed By: #### B LDCX2 #### [facility] [address] [place] [address] Dr. Lisa Martinez EPEC Not detected Normal NOT DETECTED [facility] Comment on above: Performed By: #### B LDCX2 #### [facility] [address] [place] [address] Dr. Lisa Martinez ETEC Not detected Normal NOT DETECTED [facility] Comment on above: Performed By: #### B LDCX2 #### [facility] [address] [place] [address] Dr. Lisa Martinez G. Lamblia Not detected Normal NOT DETECTED [facility] Comment on above: Performed By: #### B LDCX2 #### [facility] [address] [address] [address] Lisa MALDONADO CONTROLS PASSED Normal [facility] Comment on above: Performed By: #### B LDCX2 #### [facility] [address] [place] [address] Dr. Lisa PEREZ HEADER GI PANEL BACTERIA Normal [facility] Comment on above: Performed By: #### B LDCX2 #### [facility] [address] [address] [address] Lisa HIRSCH ECOLI GI PANEL DIARRHEAGEN IC E.COLI / SHIGELLA Normal [facility] Comment on above: Performed By: #### B LDCX2 #### [facility] [address] [place] [address] Dr. Lisa HIRSCH INFO SEE BELOW Normal [facility] Comment on above: Result Comment: EAEC - Enteroaggregative E. Coli EPEC- Enteropathogenic E. Coli ETEC- Enterotoxigenic E. Coli lt/st STEC- Shigella-like toxin-producing E. Coli stx1/stx2 EIEC- Shigella/Enteroinvasive E. Coli Performed By: #### B LDCX2 #### [facility] [address] [place] [address] Dr. Lisa HIRSCH PARASITES GI PANEL PARASITES Normal [facility] Comment on above: Performed By: #### B LDCX2 #### [facility] [address] [place] [address] Dr. Lisa HIRSCH VIRUS GI PANEL VIRUSES Normal [facility] Comment on above: Performed By: #### B LDCX2 #### [facility] [address] [place] [address] Dr. Lisa Martinez Norovirus GI/GII Not detected Normal NOT DETECTED [facility] Comment on above: Performed By: #### B LDCX2 #### [facility] [address] [place] [address] Dr. Lisa Martinez P. Shigelloides Not detected Normal NOT DETECTED [facility] Comment on above: Performed By: #### B LDCX2 #### [facility] [address] [place] [address] Dr. Lisa Martinez Rotavirus A Not detected Normal NOT DETECTED [facility] Comment on above: Performed By: #### B LDCX2 #### [facility] [address] [place] [address] Dr. Lisa Martinez Salmonella Not detected Normal NOT DETECTED [facility] Comment on above: Performed By: #### B LDCX2 #### [facility] [address] [place] [address] Dr. Lisa Martinez Sapovirus Not detected Normal NOT DETECTED [facility] Comment on above: Performed By: #### B LDCX2 #### [facility] [address] [place] [address] Dr. Lisa Martinez STEC Not detected Normal NOT DETECTED [facility] Comment on above: Performed By: #### B LDCX2 #### [facility] [address] [place] [address] Dr. Lisa Martinez Vibrio Not detected Normal NOT DETECTED [facility] Comment on above: Performed By: #### B LDCX2 #### [facility] [address] [place] [address] Dr. Lisa Martinez Vibrio Cholera Not detected Normal NOT DETECTED [facility] Comment on above: Performed By: #### B LDCX2 #### [facility] [address] [place] [address] Dr. Lisa Martinez Y. Enterocolitica Not detected Normal NOT DETECTED [facility] Comment on above: Performed By: #### B LDCX2 #### [facility] [address] [place] [address] Dr. Lisa Martinez MAGNESIUMon 05-01-2022 Magnesium [Mass/Vol] 2.0 mg/dL Normal 1.8-2.4 [facility] Comment on above: Performed By: #### M G ####[facility] [address] [place] [address]Dr. Lisa Martinez POINT OF CARE GLUCOSEon 04-09 Glucose [Mass/Vol] 184 mg/dL Critically high 74-106 T [facility] Comment on above: Performed By: #### U RCX #### [facility] [address] [address] [address] Lisa Martinez Glucose [Mass/Vol] 137 mg/dL Critically high 74-106 [facility] Comment on above: Result Comment: Foll ow Protocol Performed By: #### C BC #### [facility] [address] [address] [address] Lias Martinez Glucose [Mass/Vol] 170 mg/dL Critically high 74-106 [facility] Comment on above: Result Comment: Foll ow Protocol Performed By: #### P OCGLUC ####[facility] [address] [place] [address]DrIngrid Martinez PROF 14(COMP METB)on 022 Albumin [Mass/Vol] 3.0 g/dL Critically low 3.4-5.0 Th [facility] Comment on above: Performed By: #### C MP ####[facility] [address] [place] [address]DrIngrid Martinez Albumin/Globulin [Mass ratio] 0.6 {ratio} Normal [facility] Comment on above: Performed By: #### C MP ####[facility] [address] [place] [address]Dr. Lisa Martinez ALP [Catalytic activity/Vol] 101 U/L Normal 46-116 [facility] Comment on above: Performed By: #### C MP ####[facility] [address] [place] [address]Dr. Lisa Martinez ALT [Catalytic activity/Vol] 16 U/L Normal 14-59 [facility] Comment on above: Performed By: #### C MP ####[facility] [address] [place] [address]DrIngrid Martinez Anion gap [Moles/Vol] 9.7 mmol/L Normal [facility] Comment on above: Performed By: #### C MP ####[facility] [address] [place] [address]Dr. Lisa Martinez AST [Catalytic activity/Vol] 13 U/L Critically low 15-37 [facility] Comment on above: Performed By: #### C MP ####[facility] [address] [place] [id number]. Lisa Martinez Bilirubin [Mass/Vol] 0.5 mg/dL Normal 0.2-1.0 [facility] Comment on above: Performed By: #### C MP ####[facility] [address] [place] [id number]. Lisa Martinez Calcium [Mass/Vol] 8.8 mg/dL Normal 8.5-10.1 [facility] Comment on above: Performed By: #### C MP ####[facility] [address] [place] [id number]. Lisa Martinez Chloride [Moles/Vol] 104 mmol/L Normal 98-107 [facility] Comment on above: Performed By: #### C MP ####[facility] [address] [place], [place] [address]Dr. Lisa Martinez CO2 [Moles/Vol] 26.8 mmol/L Normal 21.0-32.0 [facility] Comment on above: Performed By: #### C MP ####[facility] [address] [place], [place] [id number]. Lisa Martinez Creatinine [Mass/Vol] 1.51 mg/dL Critically high 0.55-1.02 [facility] Comment on above: Performed By: #### C MP ####[facility] [address] [place], [place] [address]Dr. Lisa Juan EGFR-AF KITTITIAN 40 mL/min/1.73m2 Critically low >=60 [facility] Comment on above: Performed By: #### C MP ####[facility] [address] [place] [id number]. Lisa Juan EGFR-NON AF KITTITIAN 33 mL/min/1.73m2 Critically low >=60 [facility] Comment on above: Performed By: #### C MP ####[facility] Qx[address] [place], [place] [address]Dr. Lisa Juan Globulin (S) [Mass/Vol] 4.8 g/dL Normal [facility] Comment on above: Performed By: #### C MP ####[facility] [address] [place] [id number] Martinez Glucose [Mass/Vol] 177 mg/dL Critically high 74-106 [facility] Comment on above: Performed By: #### C MP ####[facility] [address] [place] [address]DrIngrid Martinez Potassium [Moles/Vol] 4.5 mmol/L Normal 3.5-5.1 [facility] Comment on above: Performed By: #### C MP ####[facility] [address] [place] [address]DrIngrid Martinez Protein [Mass/Vol] 7.8 g/dL Normal 6.4-8.2 [facility] Comment on above: Performed By: #### C MP ####[facility] [address] [place] [address]DrIngrid Martinez Sodium [Moles/Vol] 136 mmol/L Normal 136-145 [facility] Comment on above: Performed By: #### C MP ####[facility] [address] [place] [address]Dr. Lisa Martinez Urea nitrogen [Mass/Vol] 28.0 mg/dL Critically high 7.0-18.0 [facility] Comment on above: Performed By: #### C MP ####[facility] [address] [place] [address]DrIngrid Martinez Urea nitrogen/Creatinin e [Mass ratio] 18.5 mg/mg Normal [facility] Comment on above: Performed By: #### C MP ####[facility] [address] [place] [id number]. Lisa Martinez BNPon 04-30-2022 Natriuretic peptide B (Bld) [Mass/Vol] 1752.0 pg/mL Normal <=1,800.0 [facility] Comment on above: Performed By: #### B SOLAR PROJECT COORDINATION SPECIALIST, BMP #### [facility] [address] [address] [address] Lisa Martinez CBC AUTO DIFFon 04-30-2022 BASO # 0.1 103/ul Normal 0.0-0.1 [facility] Comment on above: Performed By: #### C BC ####[facility] [address] [place] [address]Dr. Lisa Martinez Basophils/100 WBC (Bld) 0.6 % Normal 0.2-2.0 [facility] Comment on above: Performed By: #### C BC ####[facility] Ethcdwvff[address] [place], [place] [address]Dr. Lisa Martinez EO # 0.1 103/ul Normal 0.0-0.7 [facility] Comment on above: Performed By: #### C BC ####[facility] [address] [place], [place] [address]Dr. Lisa Martinez Eosinophils/100 WBC (Bld) 1.2 % Normal 0.9-7.0 [facility] Comment on above: Performed By: #### C BC ####[facility] [address] [place], [place] [address]Dr. Lisa Martinez Erythrocyte distribution width (RBC) [Ratio] 13.2 % Normal 11.0-15.0 [facility] Comment on above: Performed By: #### C BC ####[facility] [address] [place], [place] [address]Dr. Lisa Martinez Hematocrit (Bld) [Volume fraction] 43.4 % Normal 36.0-48.0 [facility] Comment on above: Performed By: #### C BC ####[facility] [address] [place], [place] [address]Dr. Lisa Martinez Hemoglobin (Bld) [Mass/Vol] 14.2 g/dL Normal 12.0-16.0 [facility] Comment on above: Performed By: #### C BC ####[facility] [address]ool[address]ze[address] [place], [place] [address]Dr. Fabianachapis Juan IG # 0.13 10e3/ul Critically high 0.00-0.03 [facility] Comment on above: Performed By: #### C BC ####[facility] [address] [place] [phone]. Lisa Martinez IG % 1.6 % Critically high 0.0-0.5 [facility] Comment on above: Performed By: #### C BC ####[facility] [address] [place] [address]Dr. Lisa Juan LYMPH # 0.8 103/ul Critically low 1.2-3.8 The [facility] Comment on above: Performed By: #### C BC ####[facility] [address] [place] [address]Dr. Lisa Juan Lymphocytes/100 WBC (Bld) 9.8 % Critically low 20.5-60.0 [facility] Comment on above: Performed By: #### C BC ####[facility] [address] [place] [address]Dr. Lisa Martinez MANUAL DIFF REQ NO Normal [facility] Comment on above: Performed By: #### C BC ####[facility] [address] [place] [address]Dr. Lisa Martinez MCH (RBC) [Entitic mass] 30.0 pg Normal 26.7-34.0 [facility] Comment on above: Performed By: #### C BC ####[facility] [address] [place], [place] [address]Dr. Lisa Martinez MCHC (RBC) [Mass/Vol] 32.7 g/dL Normal 29.9-35.2 [facility] Comment on above: Performed By: #### C BC ####[facility] [address] [place] [address]Dr. Lisa Juan MCV (RBC) [Entitic vol] 91.8 fL Normal 81.0-99.0 [facility] Comment on above: Performed By: #### C BC ####[facility] [address] [place], [place] [address]Dr. Lisa Martinez MONO # 1.2 103/ul Critically high 0.3-0.8 [facility] Comment on above: Performed By: #### C BC ####[facility] [address] [place] [address]Dr. Lisa Martinez Monocytes/100 WBC (Bld) 15.0 % Critically high 1.7-12.0 [facility] Comment on above: Performed By: #### C BC ####[facility] [address] [place] [address]Dr. Lisa Martinez NEUT # 5.8 103/ul Normal 1.4-6.5 [facility] Comment on above: Performed By: #### C BC ####[facility] [address] [place] [address]Dr. Lisa Martinez Neutrophils/100 WBC (Bld) 71.8 % Normal 43.0-75.0 [facility] Comment on above: Performed By: #### C BC ####[facility] [address] [place] [address]Dr. Lisa Martinez Platelet mean volume (Bld) [Entitic vol] 10.5 fL Normal 9.5-13.5 [facility] Comment on above: Performed By: #### C BC ####[facility] Az[address]ef[address] [place], [place] [address]Dr. Lisa Martinez PLT 242 103/ul Normal 150-450 [facility] Comment on above: Performed By: #### C BC ####[facility] [address] [place], [place] [address]Dr. Lisa Martinez RBC 4.73 106/ul Normal 4.20-5.40 [facility] Comment on above: Performed By: #### C BC ####[facility] [address] [place], [place] [address]Dr. Lisa Martinez WBC 8.1 103/ul Normal 4.0-11.0 [facility] Comment on above: Performed By: #### C BC ####[facility] [address] [place], [place] [address]Dr. Lisa Martinez CT HEAD WO CONon 04-30-2022 CT HEAD WO CON EXAMINATION: CT HEAD WO CON, 04/30/2022 6:51 AM EDT HISTORY: HEADACHE COMPARISON: None. TECHNIQUE: CT scan of the head was performed without IV contrast. CT dose reduction technique was used, including Automated Exposure Control. FINDINGS: BRAIN: Mild to moderate generalized supratentorial atrophy. Mild white matter hypoattenuation, chronic small vessel ischemic changes are favored. No acute hemorrhage or mass CSF SPACES: Mild lateral ventriculomegaly. No acute hemorrhage or mass SKULL: No fracture, mass, or other significant visible lesion. SINUSES: No significant mucosal thickening or fluid on the limited views. ORBITS: No appreciable abnormality on the limited views. OTHER: Negative IMPRESSION: Atrophy and white matter disease. Chronic small vessel ischemic changes are favored Electronically authenticated by: MEENA HAWKINS Date: 2022-04-30 07:46 Normal [facility] CULTURE BLOODon 04-30-2022 Microscopic examination of blood, culture Culture Observations: NO GROWTH AT 5 DAYS. Normal [facility] Comment on above: Performed By: #### B LDCX2 #### [facility] [address] [place], [place] [address] Dr. Lisa Martinez Microscopic examination of blood, culture Culture Observations: NO GROWTH AT 5 DAYS. Normal [facility] Comment on above: Performed By: #### B LDCX1 ####[facility] [address] [place], [place] [address]Oo. Lisa Martinez CULTURE URINEon 04-30-2022 CULTURE URINE Culture Observations : No growth Normal [facility] Comment on above: Performed By: #### U RCX ####[facility] [address] [place], [place] [address]Td. Lisa Martinez Covid-19 PCR (CVDTB)on 04-09 SARS-CoV-2 (COVID-19) RNA RACIEL+probe Ql (Unsp spec) Detected Critically abnormal NOT DETECTED [facility] Comment on above: Result Comment: This test is not yet approved or cleared by the [place] FDA. When there are no FDA-approved or cleared tests available, and other criteria are met, FDA can make tests available under an emergency access mechanism called an Emergency Use Authorization (EUA). The EUA for this test is supported by the [place] of Health and Human Service's declaration that circumstances exist to justify the emergency use of in vitro diagnostics for the detection and/or diagnosis of the virus that causes COVID-19. This EUA will remain in effect for the duration of the COVID-19 declaration justifying emergency of IVDs, unless it is terminated or revoked by the FDA (after which the test may no longer be used). Performed By: #### C VDTBH #### [facility] [address] [place] [address] Dr. Lisa DALLAS URINE PROFILEon 2 Bilirubin Ql (U) Negative Normal NEGATIVE [facility] Comment on above: Performed By: #### C BC #### [facility] [address] [place] [address] Dr. Lisa Martinez Clarity (U) CLEAR Normal CLEAR [facility] Comment on above: Performed By: #### C BC #### [facility] [address] [place] [address] Dr. Lisa Martinez Color (U) LT. YELLOW Normal YELLOW [facility] Comment on above: Performed By: #### C BC #### [facility] [address] [place] [address] Dr. Lisa SMITH A micrscopic examination will be performed if indicated. Normal [facility] Comment on above: Performed By: #### C BC #### [facility] [address] [place] [address] Dr. Lisa Martinez Glucose Ql (U) Negative Normal NEGATIVE [facility] Comment on above: Performed By: #### C BC #### [facility] [address] [place] [address] Dr. Lisa Martinez Hemoglobin Ql (U) Negative Normal NEGATIVE The [facility] Comment on above: Performed By: #### C BC #### [facility] [address] [place] [address] Dr. Lisa Martinez Ketones Ql (U) Negative Normal NEGATIVE [facility] Comment on above: Performed By: #### C BC #### [facility] [address] [place] [address] Dr. Lisa Martinez LEUKOCYTES Negative Normal NEGATIVE [facility] Comment on above: Performed By: #### C BC #### [facility] [address] [place] [address] Dr. Lisa Martinez Nitrite Ql (U) Positive Abnormal NEGATIVE [facility] Comment on above: Performed By: #### C BC #### [facility] [address] [address] [address] Lisa Martinez pH (U) 5.5 [pH] Normal 5-9 [facility] Comment on above: Performed By: #### C BC #### [facility] [address] [address] [address] Lisa Martinez SPEC GRAVITY 1.030 Abnormal 1.005-<=1.025 [facility] Comment on above: Performed By: #### C BC #### [facility] [address] [address] [address] Lsia Martinez UA PROTEIN Negative Normal NEGATIVE/ TRACE [facility] Comment on above: Performed By: #### C BC #### [facility] [address] [place] [address] Dr. Lisa Martinez UR MICRO IND INDICATED Normal [facility] Comment on above: Performed By: #### C BC #### [facility] [address] [place] [address] Dr. Lisa Martinez Urobilinogen Qn (U) 0.2 {Mike'U}/dL Normal 0.2 - 1.0 [facility] Comment on above: Performed By: #### C BC #### [facility] [address] [place] [address] Dr. Lisa Martinez GLYCOHEMOGLOBIN A1Con 2021 ADA RECOMMENDATION SEE BELOW Normal [facility] Comment on above: Result Comment: ADA RECOMMENDED LIMIT 4.0 - 6.0 ADA THERAPEUTIC TARGET < 7.0 ACTION SUGGESTED > 7.0 Performed By: #### B SOLAR PROJECT COORDINATION SPECIALIST, BMP #### [facility] [address] [place] [address] Dr. Lisa Martinez Glucose [Mass/Vol] 154 mg/dL Normal [facility] Comment on above: Performed By: #### B SOLAR PROJECT COORDINATION SPECIALIST, BMP #### [facility] [address] [place] [address] Dr. Lisa Martinez HbA1c (Bld) [Mass fraction] 7.0 % Critically high 4.5-6.2 [facility] Comment on above: Performed By: #### B SOLAR PROJECT COORDINATION SPECIALIST, BMP #### [facility] [address] [place] [address] Dr. Lisa Martinez LACTATE/LACTIC ACIDon 2021 Lactate [Moles/Vol] 1.1 mmol/L Normal 0.4-1.9 [facility] Comment on above: Performed By: #### L ACT ####[facility] [address] [place] [address]Dr. Lisa Martinez LIPASEon 04-30-2022 Lipase [Catalytic activity/Vol] 53.0 U/L Critically low 73.0-393.0 [facility] Comment on above: Performed By: #### B SOLAR PROJECT COORDINATION SPECIALIST, BMP #### [facility] [address] [place] [address] Dr. Lisa Martinez LIVER PROFILEon 04-30-2022 Albumin [Mass/Vol] 3.4 g/dL Normal 3.4-5.0 [facility] Comment on above: Performed By: #### U RCX #### [facility] [address] [place] [address] Dr. Lisa Martinez Albumin/Globulin [Mass ratio] 0.7 {ratio} Normal [facility] Comment on above: Performed By: #### U RCX #### [facility] [address] [place] [address] Dr. Lisa Martinez ALP [Catalytic activity/Vol] 110 U/L Normal 46-116 [facility] Comment on above: Performed By: #### U RCX #### [facility] [address] [place] [address] Dr. Lisa Martinez ALT [Catalytic activity/Vol] 20 U/L Normal 14-59 [facility] Comment on above: Performed By: #### U RCX #### [facility] [address] [place] [address] Dr. Lisa Martinez AST [Catalytic activity/Vol] 16 U/L Normal 15-37 [facility] Comment on above: Performed By: #### U RCX #### [facility] [address] [place] [address] Dr. Lisa Martinez BILI, CONJUGATED 0.2 mg/dL Normal 0.0-0.2 [facility] Comment on above: Performed By: #### U RCX #### [facility] [address] [place] [address] Dr. Lisa Martinez Bilirubin [Mass/Vol] 0.7 mg/dL Normal 0.2-1.0 [facility] Comment on above: Performed By: #### U RCX #### [facility] [address] [place] [address] Dr. Lisa Martinez Globulin (S) [Mass/Vol] 5.0 g/dL Normal [facility] Comment on above: Performed By: #### U RCX #### [facility] [address] [place] [address] Dr. Lisa Martinez Protein [Mass/Vol] 8.4 g/dL Critically high 6.4-8.2 [facility] Comment on above: Performed By: #### U RCX #### [facility] [address] [place] [address] Dr. Lisa Martinez POINT OF CARE GLUCOSEon 04-09 Glucose [Mass/Vol] 203 mg/dL Critically high 74-106 [facility] Comment on above: Performed By: #### B SOLAR PROJECT COORDINATION SPECIALIST, BMP #### [facility] [address] [place] [address] Dr. Lisa Martinez Glucose [Mass/Vol] 174 mg/dL Critically high 74-106 [facility] Comment on above: Performed By: #### C BC #### [facility] [address] [place] [address] Dr. Lisa Martinez Glucose [Mass/Vol] 149 mg/dL Critically high 74-106 [facility] Comment on above: Performed By: #### B LDCX2 #### [facility] [address] [place] [address] Dr. Lisa Martinez PROF CHEM 8 (BAS METB)on Anion gap [Moles/Vol] 15.3 mmol/L Normal [facility] Comment on above: Performed By: #### C BC #### [facility] [address] [address] [address] Lisa Martinez Calcium [Mass/Vol] 9.1 mg/dL Normal 8.5-10.1 [facility] Comment on above: Performed By: #### C BC #### [facility] [address] [address] [address] Lisa Martinez Chloride [Moles/Vol] 98 mmol/L Normal 98-107 [facility] Comment on above: Performed By: #### C BC #### [facility] [address] [address] [address] Lisa Martinez CO2 [Moles/Vol] 24.4 mmol/L Normal 21.0-32.0 [facility] Comment on above: Performed By: #### C BC #### [facility] [address] [address] [address] Lisa Martinez Creatinine [Mass/Vol] 1.44 mg/dL Critically high 0.55-1.02 [facility] Comment on above: Performed By: #### C BC #### [facility] [address] [address] [address] Lisa Martinez EGFR-AF KITTITIAN 42 mL/min/1.73m2 Critically low >=60 [facility] Comment on above: Performed By: #### C BC #### [facility] [address] [address] [address] Lisa Martinez EGFR-NON AF KITTITIAN 35 mL/min/1.73m2 Critically low >=60 [facility] Comment on above: Performed By: #### C BC #### [facility] [address] [address] [address] Lisa Martinez Glucose [Mass/Vol] 225 mg/dL Critically high 74-106 [facility] Comment on above: Performed By: #### C BC #### [facility] [address] [address] [address] Lisa Martinez Potassium [Moles/Vol] 4.7 mmol/L Normal 3.5-5.1 [facility] Comment on above: Performed By: #### C BC #### [facility] [address] [address] [address] Lisa Martinez Sodium [Moles/Vol] 133 mmol/L Critically low 136-145 Th [facility] Comment on above: Performed By: #### C BC #### [facility] [address] [place] [address] Dr. Lisa Martinez Urea nitrogen [Mass/Vol] 37.0 mg/dL Critically high 7.0-18.0 [facility] Comment on above: Performed By: #### C BC #### [facility] [address] [place] [address] Dr. Lisa Martinez Urea nitrogen/Creatinin e [Mass ratio] 25.7 mg/mg Normal [facility] Comment on above: Performed By: #### C BC #### [facility] [address] [place] [address] Dr. Lisa Martinez PROTIMEon 04-30-2022 INR Coag (PPP) [Relative time] 1.02 {INR} Normal [facility] Comment on above: Performed By: #### K U #### [facility] [address] [place] [address] Dr. Lisa Martinez INR GUIDELINES SEE BELOW Normal [facility] Comment on above: Result Comment: ANTONY RED INR: 2.0 - 3.0 CONDITIONS NOT LISTED BELOW 2.5 - 3.5 FOR PROSTHETIC HEART VALVE REPLACEMENT 2.5 - 3.5 RECURRENT THROMBOSIS Performed By: #### K U #### [facility] [address] [place] [address] Dr. Lisa Martinez PT Coag (PPP) [Time] 11.0 s Normal 9.0-11.6 [facility] Comment on above: Performed By: #### K U #### [facility] [address] [place] [address] Dr. Lisa Martinez PTTon 04-30-2022 aPTT Coag (Bld) [Time] 27.5 s Normal 22.3-36.2 [facility] Comment on above: Performed By: #### K U #### [facility] [address] [place] [address] Dr. Lisa Martinez TROPONIN, HIGH SENSITIVITYon 04-30-2022 HSTROP 20.0 pg/mL Normal 4.0-51.3 [facility] Comment on above: Result Comment: CUT- OFF POINTS HAVE BEEN ESTABLISHED BASED ON THE FOURTH UNIVERSAL DEFINITIONS OF MYOCARDIAL INFARCTION. THE UPPER REFERENCE LIMIT (URL) OF TROPONIN, DEFINED THE 99TH PERCENTILE OF cTnI DISTRIBUTION IN A REFERENCE POPULATION, HAS BEEN CONFIRMED THE DECISION THRESHOLD FOR ME DIAGNOSIS. Performed By: #### U RCX #### [facility] [address] [place] [address] Dr. Lisa Martinez URINE MICROSCOPIC ONLYon BACTERIA MODERATE Abnormal NONE SEEN [facility] Comment on above: Performed By: #### K U #### [facility] [address] [place] [address] Dr. Lisa Martinez Bacteria identified Cx Nom (U) INDICATED Normal [facility] Comment on above: Performed By: #### K U #### [facility] [address] [place] [address] Dr. Lisa Martinez CAST NONE SEEN Normal NONE SEEN [facility] Comment on above: Performed By: #### K U #### [facility] [address] [place] [address] Dr. Lisa Martinez Crystals LM Nom (Urine sed) NONE SEEN Normal NONE SEEN [facility] Comment on above: Performed By: #### K U #### [facility] [address] [place] [address] Dr. Lisa Martinez Epithelial cells LM Ql (Urine sed) RARE Normal NONE SEEN /RARE [facility] Comment on above: Performed By: #### K U #### [facility] [address] [place] [address] Dr. Lisa Martinez MUCOUS NONE SEEN Normal NONE SEEN [facility] [facility] Comment on above: Performed By: #### K U #### [facility] [address] [place] [address] Dr. Lisa Martinez RBC NONE SEEN Abnormal 0-2 [facility] Comment on above: Performed By: #### K U #### [facility] [address] [place] [address] Dr. Lisa Martinez WBC 0-2 Abnormal NONE SEEN [facility] Comment on above: Performed By: #### K U #### [facility] [address] [address] [address] Lisa Martinez XR CHEST 1 Von 04-30-2022 XR CHEST 1 V EXAMINATION: XR CHES T 1 V HISTORY: COUGH COMPARISON: 09/04/2020 TECHNIQUE: AP portable FINDINGS: LUNGS: Bibasilar infiltrates, right greater than left. Increased interstitial lung markings likely chronic changes. VASCULATURE: No increased pulmonary vasculature. PLEURA: No pneumothorax, effusion, or pleural thickening. CARDIAC: No cardiomegaly or cardiac silhouette abnormality. MEDIASTINUM: No visible mass or adenopathy. Median sternotomy closure devices BONES: No fracture or visible bone lesion. OTHER: Negative. IMPRESSION: Mild bibasilar infiltrates right greater than left Electronically authenticated by: MEENA HAWKINS Date: 2022-04-30 07:42 Normal [facility] FREE T3on 04-12-2022 FREE T3 2.10 pg/mlL Critically low 2.18-3.98 [facility] Comment on above: Performed By: #### C VDTBH #### [facility] [address] [place] [address] Dr. Lisa Martinez FREE T4on 04-12-2022 Free T4 [Mass/Vol] 0.88 ng/dL Normal 0.76-1.46 [facility] Comment on above: Performed By: #### B LDCX2 #### [facility] [address] [place] [address] Dr. Lisa Martinez TSHon 04-12-2022 TSH 5.007 uIU/mL Critically high 0.358-3.740 [facility] Comment on above: Performed By: #### C VDTBH #### [facility] [address] [place] [address] Dr. Lisa Martinez US THYROIDon 04-12-2022 US THYROID EXAMINATION: US THYR OID HISTORY: Thyrotoxicosis COMPARISON: No relevant comparison available. TECHNIQUE: Sonographic images of the thyroid gland were obtained. FINDINGS: The right thyroid lobe is normal in size, contour and homogeneous echotexture measuring 3.8 x 1.1 x 1.0 cm. No focal nodule The thyroid isthmus is thickened measuring 6 mm. No focal nodule The left thyroid lobe measures 3.8 x 1.1 x 1.0 cm. Single nodule. Nodule 1: Inferior lobe. 1.7 x 1.4 x 1.1 cm. Spongiform, hypoechoic, wide, smooth margins, no calcifications. TR 2 IMPRESSION: 1.7 cm TR 2 left thyroid nodule. No follow-up required TI-RADS: TI-RADS 2: Benign nodules. Noticeably benign pattern (0% risk of malignancy) Electronically authenticated by: MEENA HAWKINS Date: 2022-04-12 13:20 Normal [facility] CBC AUTO DIFFon 02-12-2022 BASO # 0.1 103/ul Normal 0.0-0.1 [facility] Comment on above: Performed By: #### K U #### [facility] [address] [place] [address] Dr. Lisa Martinez Basophils/100 WBC (Bld) 0.7 % Normal 0.2-2.0 [facility] Comment on above: Performed By: #### K U #### [facility] [address] [place] [address] Dr. Lisa Martinez EO # 0.3 103/ul Normal 0.0-0.7 [facility] Comment on above: Performed By: #### K U #### [facility] [address] [place] [address] Dr. Lisa Martinez Eosinophils/100 WBC (Bld) 3.3 % Normal 0.9-7.0 [facility] Comment on above: Performed By: #### K U #### [facility] [address] [place] [address] Dr. Lisa Martinez Erythrocyte distribution width (RBC) [Ratio] 13.0 % Normal 11.0-15.0 [facility] Comment on above: Performed By: #### K U #### [facility] [address] [place] [address] Dr. Lisa Martinez Hematocrit (Bld) [Volume fraction] 34.6 % Critically low 36.0-48.0 [facility] Comment on above: Performed By: #### K U #### [facility] [address] [address] [address] Lisa Martinez Hemoglobin (Bld) [Mass/Vol] 11.1 g/dL Critically low 12.0-16.0 [facility] Comment on above: Performed By: #### K U #### [facility] [address] [address] [address] Lisa Martinez IG # 0.04 10e3/ul Critically high 0.00-0.03 [facility] Comment on above: Performed By: #### K U #### [facility] [address] [address] [address] Lisa Martinez IG % 0.4 % Normal 0.0-0.5 [facility] Comment on above: Performed By: #### K U #### [facility] [address] [place] [address] Dr. Lisa Martinez LYMPH # 1.0 103/ul Critically low 1.2-3.8 [facility] Comment on above: Performed By: #### K U #### [facility] [address] [place] [address] Dr. Lisa Martinez Lymphocytes/100 WBC (Bld) 10.6 % Critically low 20.5-60.0 [facility] Comment on above: Performed By: #### K U #### [facility] [address] [place] [address] Dr. Lisa Martinez MANUAL DIFF REQ NO Normal [facility] Comment on above: Performed By: #### K U #### [facility] [address] [address] [address] Lisa Martinez MCH (RBC) [Entitic mass] 31.3 pg Normal 26.7-34.0 [facility] Comment on above: Performed By: #### K U #### [facility] [address] [address] [address] Lisa Martinez MCHC (RBC) [Mass/Vol] 32.1 g/dL Normal 29.9-35.2 [facility] Comment on above: Performed By: #### K U #### [facility] [address] [address] [address] Lisa Martinez MCV (RBC) [Entitic vol] 97.5 fL Normal 81.0-99.0 [facility] Comment on above: Performed By: #### K U #### [facility] [address] [address] [address] Lisa Martinez MONO # 0.9 103/ul Critically high 0.3-0.8 [facility] Comment on above: Performed By: #### K U #### [facility] [address] [place] [address] Dr. Lisa Martinez Monocytes/100 WBC (Bld) 9.5 % Normal 1.7-12.0 [facility] Comment on above: Performed By: #### K U #### [facility] [address] [place] [address] Dr. Lisa Martinez NEUT # 6.9 103/ul Critically high 1.4-6.5 [facility] Comment on above: Performed By: #### K U #### [facility] [address] [place] [address] Dr. Lisa Martinez Neutrophils/100 WBC (Bld) 75.5 % Critically high 43.0-75.0 [facility] Comment on above: Performed By: #### K U #### [facility] [address] [place] [address] Dr. Lisa Martinez Platelet mean volume (Bld) [Entitic vol] 9.9 fL Normal 9.5-13.5 [facility] Comment on above: Performed By: #### K U #### [facility] [address] [place] [address] Dr. Lisa Martinez PLT 255 103/ul Normal 150-450 [facility] Comment on above: Performed By: #### K U #### [facility] [address] [place] [address] Dr. Lisa Martinez RBC 3.55 106/ul Critically low 4.20-5.40 [facility] Comment on above: Performed By: #### K U #### [facility] [address] [place] [address] Dr. Lisa Martinez WBC 9.2 103/ul Normal 4.0-11.0 [facility] Comment on above: Performed By: #### K U #### [facility] [address] [address] [address] Lisa Martinez CRPon 02-12-2022 CRP 0.7 mg/dL Normal <=1.0 [facility] Comment on above: Performed By: #### B SOLAR PROJECT COORDINATION SPECIALIST, BMP #### [facility] [address] [address] [address] Lisa Martinez SED RATE WESTERGRENon 2021 SED RATE 56 mm/hr Critically high <=30 [facility] Comment on above: Performed By: #### S EDR ####[facility] [address] [address]Dr. Lisa Mratinez URIC ACID SERUMon 02-12-2022 Urate [Mass/Vol] 9.2 mg/dL Critically high 2.6-6.0 [facility] Comment on above: Performed By: #### B SOLAR PROJECT COORDINATION SPECIALIST, BMP #### [facility] [address] [address] [address] Lisa Martinez XR FOOT LT MIN 3 VIEWSon XR FOOT LT MIN 3 VIEWS EXAM: XR FOOT LT MIN 3 VIEWS INDICATION: Bone injury. COMPARISON: None. TECHNIQUE: Left foot, 3 views. FINDINGS: No acute fracture or dislocation identified. Severe degenerative changes of the first MTP joint. Plantar calcaneal spur. Unremarkable soft tissues. IMPRESSION: No acute osseous abnormality. Electronically authenticated by: TYLER MENENDEZ Date: 2022-02-12 13:01 Normal [facility] HEMOGRAM AND PLATELon 2021 Hematocrit (Bld) [Volume fraction] 35.7 % Critically low 36.0-48.0 [facility] Comment on above: Performed By: #### U RCX #### [facility] [address] [address] [address] Lisa Martinez Hemoglobin (Bld) [Mass/Vol] 11.7 g/dL Critically low 12.0-16.0 [facility] Comment on above: Performed By: #### U RCX #### [facility] [address] [address] [address] Lisa Martinez MCH (RBC) [Entitic mass] 31.5 pg Normal 26.7-34.0 [facility] Comment on above: Performed By: #### U RCX #### [facility] [address] [address] [address] Lisa Martinez MCHC (RBC) [Mass/Vol] 32.8 g/dL Normal 29.9-35.2 [facility] Comment on above: Performed By: #### U RCX #### [facility] [address] [address] [address] Lisa Martinez MCV (RBC) [Entitic vol] 96.2 fL Normal 81.0-99.0 [facility] Comment on above: Performed By: #### U RCX #### [facility] [address] [place] [address] Dr. Lisa Martinez PLT 268 103/ul Normal 150-450 [facility] Comment on above: Performed By: #### U RCX #### [facility] [address] [place] [address] Dr. Lisa Martinez RBC 3.71 106/ul Critically low 4.20-5.40 [facility] Comment on above: Performed By: #### U RCX #### [facility] [address] [place] [address] Dr. Lisa Martinez WBC 9.3 103/ul Normal 4.0-11.0 [facility] Comment on above: Performed By: #### U RCX #### [facility] [address] [place] [address] Dr. Lisa Martinez PROF CHEM 8 (BAS METB)on Anion gap [Moles/Vol] 11.2 mmol/L Normal [facility] Comment on above: Performed By: #### C VDTBH #### [facility] [address] [place] [address] Dr. Lisa Martinez Calcium [Mass/Vol] 9.1 mg/dL Normal 8.5-10.1 [facility] Comment on above: Performed By: #### C VDTBH #### [facility] [address] [address] [address] Lisa Martinez Chloride [Moles/Vol] 104 mmol/L Normal 98-107 [facility] Comment on above: Performed By: #### C VDTBH #### [facility] [address] [address] [address] Lisa Martinez CO2 [Moles/Vol] 30.6 mmol/L Normal 21.0-32.0 [facility] Comment on above: Performed By: #### C VDTBH #### [facility] [address] [address] [address] Lisa Martinez Creatinine [Mass/Vol] 1.64 mg/dL Critically high 0.55-1.02 [facility] Comment on above: Performed By: #### C VDTBH #### [facility] [address] [address] [address] Lisa Martinez EGFR-AF KITTITIAN 36 mL/min/1.73m2 Critically low >=60 [facility] Comment on above: Performed By: #### C VDTBH #### [facility] [address] [address] [address] Lisa Martinez EGFR-NON AF KITTITIAN 30 mL/min/1.73m2 Critically low >=60 [facility] Comment on above: Performed By: #### C VDTBH #### [facility] [address] [address] [address] Lisa Martinez Glucose [Mass/Vol] 61 mg/dL Critically low 74-106 [facility] Comment on above: Performed By: #### C VDTBH #### [facility] [address] [address] [address] Lisa Martinez Potassium [Moles/Vol] 4.8 mmol/L Normal 3.5-5.1 [facility] Comment on above: Performed By: #### C VDTBH #### [facility] [address] [address] [address] Lisa Martinez Sodium [Moles/Vol] 141 mmol/L Normal 136-145 [facility] Comment on above: Performed By: #### C VDTBH #### [facility] [address] [place], [place] [address] Dr. Lisa Martinez Urea nitrogen [Mass/Vol] 34.0 mg/dL Critically high 7.0-18.0 [facility] Comment on above: Performed By: #### C VDTBH #### [facility] [address] [place], [place] [address] Dr. Lisa Martinez Urea nitrogen/Creatinin e [Mass ratio] 20.7 mg/mg Normal [facility] Comment on above: Performed By: #### C VDTBH #### [facility] [address] [address] [address] Lisa Martinez Cardiovascular Lab Reporton 12-21-2021 Cardiovascular Lab Report [facility] Patient Name: Jenni Villegas [facility] MR #: [id number] Physician: Josefina Weston of [facility] Date: 12/20/2021 Division of Birthdate: 1940 Cardiology Room #: Adult Cardiovascular Services [address] [place] [address] Cardiovascular Laboratory Report INDICATION: The patient is an 81-year-old woman with prior history of aortic valve replacement. She was evaluated recently in Cardiology Clinic because of worsening symptoms of shortness of breath. An echocardiogram showed evidence of mitral stenosis and possible aortic valve stenosis as well as elevated right-sided pressures consistent with pulmonary hypertension. She was referred for right heart catheterization. PROCEDURES: 1. Right heart catheterization. 2. Access into right internal jugular vein under ultrasound guidance. METHODS: Procedure was explained to the patient with risks and benefits. She signed the consent. She was brought to the cardiac cath technologist in a fasting state. The right neck area was prepped and draped in usual fashion. Micropuncture technique and ultrasound guidance were used for access in the right internal jugular vein. A 6-Norwegian x 11 cm sheath was placed. A 6-Norwegian Becker catheter was used for right heart catheterization with measurement of pressures and calculation of cardiac output using the estimated Gordo method. Becker catheter was removed. Access sheath was removed. Manual compression was applied for hemostasis. She tolerated the procedure well. She will be observed for 1 hour and then discharged to home. TOTAL SEDATION TIME: Zero minutes. TOTAL FLUORO TIME: 2.64 minutes. TOTAL AIR KERMA: 431 mGy. TOTAL CONTRAST VOLUME: 0 mL. HEMODYNAMICS: 1. RA 10. 2. RV 51/0, 9. 3. PA 58/17, mean 34. 4. Pulmonary wedge pressure 18 with V-waves up to 29. 5. Blood pressure 138/57, mean 74. 6. Cardiac output 4.12. 7. Cardiac index 2.18. 8. PA sat 56%. 9. AO sat 94%. SUMMARY OF THE FINDINGS: 1. Moderately elevated filling pressures. 2. Moderate to severe pulmonary hypertension. 3. Reduced cardiac output and cardiac index. RECOMMENDATIONS: 1. The patient's current diuretic therapy will be adjusted with Lasix increased from 40 mg daily to 60 mg daily. 2. Follow up in Cardiology Clinic in 1 month with BMP. Electronically Signed by: Josefina Chao M.D. 12/24/2021 11:53 A Josefina Chao M.D. Date Dict: 12/20/2021/03:26 P/Josefina Chao M.D. Date Trans: 12/21/2021 06:38 A/kali [id number] cc: Jasvir León M.D. 3 [facility] [address] Normal [facility] Covid-19 PCR (CVDTBH)on 12-07 SARS-CoV-2 (COVID-19) RNA RACIEL+probe Ql (Unsp spec) Not detected Normal NOT DETECTED [facility] Comment on above: Result Comment: This test is not yet approved or cleared by the [place] FDA. When there are no FDA-approved or cleared tests available, and other criteria are met, FDA can make tests available under an emergency access mechanism called an Emergency Use Authorization (EUA). The EUA for this test is supported by the [place] of Health and Human Service's (HHS's) declaration that circumstances exist to justify the emergency use of in vitro diagnostics for the detection and/or diagnosis of the virus that causes COVID-19. This EUA will remain in effect (meaning this test can be used) for the duration of the COVID-19 declaration justifying emergency of IVDs, unless it is terminated or revoked by FDA (after which the test may no longer be used). When diagnostic testing is negative, the possibility of a false negative should be considered in the context of a patient's recent exposures and the presence of clinical signs and symptoms consistent with SARS-CoV-2. Performed By: #### K U #### [facility] [address] [address] [address] Lisa Martinez HEMOGRAM AND PLATELon 2021 Hematocrit (Bld) [Volume fraction] 37.7 % Normal 36.0-48.0 [facility] Comment on above: Performed By: #### H H ####[facility] [address] [address]Dr. Lisa Martinez Hemoglobin (Bld) [Mass/Vol] 11.8 g/dL Critically low 12.0-16.0 [facility] Comment on above: Performed By: #### H H ####[facility] [address] [address]Dr. Lisa Martinez MCH (RBC) [Entitic mass] 30.7 pg Normal 26.7-34.0 [facility] Comment on above: Performed By: #### H H ####[facility] [address] [address]Dr. Lisa Martinez MCHC (RBC) [Mass/Vol] 31.3 g/dL Normal 29.9-35.2 [facility] Comment on above: Performed By: #### H H ####[facility] [address] [address]Dr. Lisa Martinez MCV (RBC) [Entitic vol] 98.2 fL Normal 81.0-99.0 [facility] Comment on above: Performed By: #### H H ####[facility] [address] [address]Dr. Lisa Martinez PLT 238 103/ul Normal 150-450 [facility] Comment on above: Performed By: #### H H ####[facility] [address] [address]Dr. Fabianachapis Juan RBC 3.84 106/ul Critically low 4.20-5.40 [facility] Comment on above: Performed By: #### H H ####[facility] [address] [address]DrIngrid Martinez WBC 8.6 103/ul Normal 4.0-11.0 [facility] Comment on above: Performed By: #### H H ####[facility] [address] [address]DrIngrid Martinez PROF CHEM 8 (BAS METB)on Anion gap [Moles/Vol] 13.7 mmol/L Normal [facility] Comment on above: Performed By: #### B MP ####[facility] [address] [place], [place] [address]DrIngrid Martinez Calcium [Mass/Vol] 9.1 mg/dL Normal 8.5-10.1 [facility] Comment on above: Performed By: #### B MP ####[facility] [address] [place], [place] [address]Dr. Lisa Martinez Chloride [Moles/Vol] 107 mmol/L Normal 98-107 [facility] Comment on above: Performed By: #### B MP ####[facility] [address] [place], [place] [address]DrIngrid Martinez CO2 [Moles/Vol] 26.9 mmol/L Normal 21.0-32.0 [facility] Comment on above: Performed By: #### B MP ####[facility] [address] [place], [place] [address]DrIngrid Martinez Creatinine [Mass/Vol] 1.48 mg/dL Critically high 0.55-1.02 [facility] Comment on above: Performed By: #### B MP ####[facility] [address] [place], [place] [address]Dr. Lisa Martinez EGFR-AF KITTITIAN 41 mL/min/1.73m2 Critically low >=60 [facility] Comment on above: Performed By: #### B MP ####[facility] [address] [address]Dr. Lisa Martinez EGFR-NON AF KITTITIAN 34 mL/min/1.73m2 Critically low >=60 [facility] Comment on above: Performed By: #### B MP ####[facility] [address] [address]Dr. Lisa Martinez Glucose [Mass/Vol] 161 mg/dL Critically high 74-106 [facility] Comment on above: Performed By: #### B MP ####[facility] [address] [address]Dr. Fabianachapis Juan Potassium [Moles/Vol] 4.6 mmol/L Normal 3.5-5.1 [facility] Comment on above: Performed By: #### B MP ####[facility] [address] [address]Dr. Fabianachapis Juan Sodium [Moles/Vol] 143 mmol/L Normal 136-145 [facility] Comment on above: Performed By: #### B MP ####[facility] [address] [address]Dr. Lisa Juan Urea nitrogen [Mass/Vol] 35.0 mg/dL Critically high 7.0-18.0 [facility] Comment on above: Performed By: #### B MP ####[facility] [address] [address]Dr. Fabianachapis Juan Urea nitrogen/Creatinin e [Mass ratio] 23.6 mg/mg Normal [facility] Comment on above: Performed By: #### B MP ####[facility] [address] [address]Dr. Lisa Martinez Comprehensive Metabolic Pane yesiac 08-17-2021 Albumin [Mass/Vol] 4.4 g/dL Normal 3.6-5.1 [employer] [place] [employer] Comment on above: Performed By: #### C MP #### [facility] [address] [place], [place] [id number] Albumin/Globulin [Mass ratio] 1.4 {ratio} Normal 1.0-2.5 [facility] Comment on above: Performed By: #### C MP #### [facility] [address] [place], [place] [id number] ALP [Catalytic activity/Vol] 89 U/L Normal 35-119 [facility] Comment on above: Performed By: #### C MP #### [facility] [address] [place], [place] [id number] ALT [Catalytic activity/Vol] 13 U/L Normal 6-33 [facility] Comment on above: Result Comment: 06/08 Female reference range changed. Performed By: #### C MP #### [facility] [address] [place], [place] [id number] Anion gap [Moles/Vol] 18 mmol/L Normal 12-20 [facility] Comment on above: Result Comment: Effe ctive 07/14/2019 reference range changed. Performed By: #### C MP #### [facility] [address] [place], [place] [id number] AST [Catalytic activity/Vol] 20 U/L Normal 9-34 [facility] Comment on above: Performed By: #### C MP #### [facility] [address] [place], [place] [id number] Bilirubin [Mass/Vol] 0.34 mg/dL Normal 0.30-1.20 [facility] Comment on above: Performed By: #### C MP #### [facility] [address] [place], [place] [id number] BUN/CREA 28 Ratio High 6-22 [facility] Comment on above: Performed By: #### C MP #### [facility] [address] [place], [place] [id number] Calcium [Mass/Vol] 9.8 mg/dL Normal 8.6-10.2 [facility] Comment on above: Performed By: #### C MP #### [facility] [address] [place], [place] [id number] Chloride [Moles/Vol] 106 mmol/L Normal 98-107 [facility] Comment on above: Performed By: #### C MP #### [facility] [address] [place], [place] [id number] CO2 [Moles/Vol] 23 mmol/L Normal 20-31 [facility] Comment on above: Performed By: #### C MP #### [facility] [address] [place], [place] [id number] Creatinine [Mass/Vol] 1.1 mg/dL Normal 0.6-1.4 [facility] Comment on above: Performed By: #### C MP #### [facility] [address] [place], [place] [id number] eGFRAA 59 mL/min/1.73m2 Low >60 [facility] Specialist Comment on above: Performed By: #### C MP #### [facility] [address] [place], [place] [id number] eGFRNAA 49 mL/min/1.73m2 Low >60 [facility] Specialist Comment on above: Performed By: #### C MP #### [facility] [address] [place], [place] [id number] Globulin (S) [Mass/Vol] 3.2 g/dL Normal 1.9-3.7 [facility] Specialist Comment on above: Performed By: #### C MP #### [facility] [address] [place], [place] [id number] Glucose [Mass/Vol] 51 mg/dL Low 65-99 [facility] Specialist Comment on above: Result Comment: For FASTING Glucose --- ADA reference ranges: Normal 65-99 mg/dl Prediabetes 100-125 Diabetes >/= 126 Performed By: #### C MP #### [facility] [address] [place], [place] [id number] Potassium [Moles/Vol] 4.5 mmol/L Normal 3.5-5.5 [facility] Specialist Comment on above: Performed By: #### C MP #### [facility] [address] [place], [place] [id number] Protein [Mass/Vol] 7.6 g/dL Normal 6.1-8.1 [facility] Specialist Comment on above: Performed By: #### C MP #### [facility] [address] [place], [place] [id number] Sodium [Moles/Vol] 143 mmol/L Normal 135-146 [facility] Comment on above: Performed By: #### C MP #### [facility] [address] [place], [place] [id number] Urea nitrogen [Mass/Vol] 31 mg/dL High 7-25 [facility] Specialist Comment on above: Performed By: #### C MP #### [facility] [address], [place] [id number] Complete Blood Counton 08-03 Erythrocyte distribution width (RBC) [Ratio] 13.2 % Normal 11.0-15.0 [facility] Comment on above: Performed By: #### C BC, TSH, FT3, FT4, CMP #### [facility] [address], [place] [id number] Hematocrit (Bld) [Volume fraction] 36.6 % Normal 35.0-47.0 [facility] Comment on above: Performed By: #### C BC, TSH, FT3, FT4, CMP #### [facility] [address], [place] [id number] Hemoglobin (Bld) [Mass/Vol] 11.4 g/dL Low 11.6-15.5 [facility] Specialist Comment on above: Performed By: #### C BC, TSH, FT3, FT4, CMP #### [facility] [address], [place] [id number] MCH (RBC) [Entitic mass] 31.1 pg Normal 27.0-33.0 [facility] Specialist Comment on above: Performed By: #### C BC, TSH, FT3, FT4, CMP #### [facility] [address], [place] [id number] MCHC (RBC) [Mass/Vol] 31.1 g/dL Low 32.0-36.0 [facility] Specialist Comment on above: Performed By: #### C BC, TSH, FT3, FT4, CMP #### [facility] [address], [place] [id number] MCV (RBC) [Entitic vol] 100 fL Normal 80-100 [facility] Specialist Comment on above: Performed By: #### C BC, TSH, FT3, FT4, CMP #### [facility] [address], [place] [id number] Platelet mean volume (Bld) [Entitic vol] 10.10 fL Normal 7.50-12.50 [facility] Specialist Comment on above: Performed By: #### C BC, TSH, FT3, FT4, CMP #### [facility] [address], [place] [id number] Platelets (Bld) [#/Vol] 245 10*3/uL Normal 140-400 [facility] Specialist Comment on above: Performed By: #### C BC, TSH, FT3, FT4, CMP #### [facility] [address], [place] [id number] RBC (Bld) [#/Vol] 3.66 10*6/uL Low 3.90-5.20 [facility] [employer] [facility] [employer] Comment on above: Performed By: #### C BC, TSH, FT3, FT4, CMP #### [facility] [address], [place] [id number] RDW-SD 48.1 fL Normal 37.0-50.0 [facility] Specialist Comment on above: Performed By: #### C BC, TSH, FT3, FT4, CMP #### [facility] [address], [place] [id number] WBC (Bld) [#/Vol] 8.7 10*3/uL Normal 3.8-11.0 [employer] [facility] [place] [employer] Comment on above: Performed By: #### C BC, TSH, FT3, FT4, CMP #### [facility] [address], [place] [id number] Comprehensive Metabolic Pane yesica 08-03-2021 Albumin [Mass/Vol] 3.9 g/dL Normal 3.6-5.1 [employer] [place] [employer] Comment on above: Performed By: #### C BC, TSH, FT3, FT4, CMP #### [facility] [address], [place] [id number] Albumin/Globulin [Mass ratio] 1.1 {ratio} Normal 1.0-2.5 [facility] Comment on above: Performed By: #### C BC, TSH, FT3, FT4, CMP #### [facility] [address], [place] [id number] ALP [Catalytic activity/Vol] 105 U/L Normal 35-119 [facility] Comment on above: Performed By: #### C BC, TSH, FT3, FT4, CMP #### [facility] [address], [place] [id number] ALT [Catalytic activity/Vol] 10 U/L Normal 6-33 [facility] Comment on above: Result Comment: 06/08 Female reference range changed. Performed By: #### C BC, TSH, FT3, FT4, CMP #### [facility] [address], [place] [id number] Anion gap [Moles/Vol] 20 mmol/L Normal 12-20 [facility] Comment on above: Result Comment: Effe ctive 07/14/2019 reference range changed. Performed By: #### C BC, TSH, FT3, FT4, CMP #### [facility] [address], [place] [id number] AST [Catalytic activity/Vol] 19 U/L Normal 9-34 [facility] Specialist Comment on above: Performed By: #### C BC, TSH, FT3, FT4, CMP #### [facility] [address], [place] [id number] BUN/CREA 24 Ratio High 6-22 [facility] Comment on above: Performed By: #### C BC, TSH, FT3, FT4, CMP #### [facility] [address], [place] [id number] Calcium [Mass/Vol] 9.6 mg/dL Normal 8.6-10.2 [facility] Comment on above: Performed By: #### C BC, TSH, FT3, FT4, CMP #### [facility] [address], [place] [id number] Chloride [Moles/Vol] 106 mmol/L Normal 98-107 [facility] Comment on above: Performed By: #### C BC, TSH, FT3, FT4, CMP #### [facility] [address], [place] [id number] CO2 [Moles/Vol] 21 mmol/L Normal 20-31 [facility] Comment on above: Performed By: #### C BC, TSH, FT3, FT4, CMP #### [facility] [address], [place] [id number] Creatinine [Mass/Vol] 2.6 mg/dL High 0.6-1.4 [facility] Comment on above: Performed By: #### C BC, TSH, FT3, FT4, CMP #### [facility] [address], [place] [id number] eGFRAA 22 mL/min/1.73m2 Low >60 [facility] Comment on above: Performed By: #### C BC, TSH, FT3, FT4, CMP #### [facility] [address], [place] [id number] eGFRNAA 18 mL/min/1.73m2 Low >60 [facility] Comment on above: Performed By: #### C BC, TSH, FT3, FT4, CMP #### [facility] [address], [place] [id number] Globulin (S) [Mass/Vol] 3.4 g/dL Normal 1.9-3.7 [facility] Comment on above: Performed By: #### C BC, TSH, FT3, FT4, CMP #### [facility] [address], [place] [id number] Glucose [Mass/Vol] 93 mg/dL Normal 65-99 [facility] Comment on above: Result Comment: For FASTING Glucose --- ADA reference ranges: Normal 65-99 mg/dl Prediabetes 100-125 Diabetes >/= 126 Performed By: #### C BC, TSH, FT3, FT4, CMP #### [facility] [address], [place] [id number] Potassium [Moles/Vol] 6.9 mmol/L Critically high 3.5-5.5 [facility] Comment on above: Result Comment: Repo rt given to Dr León (Ragini) Performed By: #### C BC, TSH, FT3, FT4, CMP #### [facility] [address], [place] [id number] Protein [Mass/Vol] 7.3 g/dL Normal 6.1-8.1 [facility] Real Estate Asset Manager Comment on above: Performed By: #### C BC, TSH, FT3, FT4, CMP #### [facility] [address], [place] [id number] Sodium [Moles/Vol] 139 mmol/L Normal 135-146 [facility] [employer] Estate Asset Manager Comment on above: Performed By: #### C BC, TSH, FT3, FT4, CMP #### [facility] [address], [place] [id number] TBIL <0.3 Normal [facility] Specialist Comment on above: Performed By: #### C BC, TSH, FT3, FT4, CMP #### [facility] [address], [place] [id number] Urea nitrogen [Mass/Vol] 62 mg/dL High 7-25 [facility] [employer] Estate Asset Manager Comment on above: Performed By: #### C BC, TSH, FT3, FT4, CMP #### [facility] [address], [place] [id number] Free T3on 08-03-2021 FT3 2.05 pg/mL Normal 2.00-4.40 [facility] [employer] Estate Asset [employer] Comment on above: Performed By: #### C BC, TSH, FT3, FT4, CMP #### [facility] [address], [place] [id number] Free T4on 08-03-2021 Free T4 [Mass/Vol] 0.91 ng/dL Normal 0.80-1.80 [facility] [employer] Estate Asset Manager Comment on above: Performed By: #### C BC, TSH, FT3, FT4, CMP #### [facility] [address], [place] [id number] Q - B-TYPE NATRIURETIC (BNP) on 08-03-2021 Natriuretic peptide B (Bld) [Mass/Vol] 283 pg/mL High <100 [facility] [employer] Estate Asset [employer] Comment on above: Order Comment: [facility] performed at: QPT, [facility], [address], [address] [facility], [place], [address], Seam Sewer: Boone Calderón MD [facility] Collection Date/Time: [id number] [facility] Results Received Date/Time: [facility] Reported Date/Time: Result Comment: BNP levels increase with age in the general population with the highest values seen in individuals greater than 75 years of age. Reference: J. Am. Priya. Cardiol. 2002; 40:976-982. Performed By: #### [id number] #### [facility] [address] [place] [address] TSHon 08-03-2021 TSH 3.450 uIU/mL Normal 0.400-4.500 [facility] Real Estate Asset Manager Comment on above: Performed By: #### C BC, TSH, FT3, FT4, CMP #### [facility] [address] [place], [place] [id number] COVID Quick Testingon 2020 Result Negative [facility] Other Quick Fluon 06-06-2021 FLUAV Ab CF (S) [Titer] Negative [facility] Other FLUBV Ab CF (S) [Titer] Negative [facility] Other Vital Signs Date Time Vital Sign Value Performing Clinician Facility 08-07-2023 10:53-0500 Diastolic blood pressure 64 mm[Hg] Kd Macias MD Work Phone: [facility] 08-07-2023 10:53-0500 Heart rate 109 /min Kd Macias MD Work Phone: [facility] 08-07-2023 10:53-0500 Respiratory rate 18 /min Kd Macias MD Work Phone: [facility] 08-07-2023 10:53-0500 SaO2% (BldA) [Mass fraction] 90 % Kd Macias MD Work Phone: [facility] 08-07-2023 10:53-0500 Systolic blood pressure 94 mm[Hg] Kd Macias MD Work Phone: [facility] 06-06-2021 12:45-0500 Body height 157.48 cm Mariam Ginty Other [facility] Other 06-06-2021 12:45-0500 Body mass index (BMI) [Ratio] 34.75 kg/m2 Mariam Ginty Other [facility] Other 06-06-2021 12:45-0500 Body temperature 96.8 [degF] Mariam Ginty Other [facility] Other 06-06-2021 12:45-0500 Body weight 86.18 kg Mariam Ginty Other [facility] Other 06-06-2021 12:45-0500 Diastolic blood pressure 78 mm[Hg] Mariam Ginty Other [facility] Other 06-06-2021 12:45-0500 SaO2% (BldA) [Mass fraction] 94 % Mariam Ginty Other [facility] Other 06-06-2021 12:45-0500 Systolic blood pressure 131 mm[Hg] Mariam Ginty Other [facility] Other Encounters Encounter Date Encounter Type Care Provider Facility Start: 10-09-2023 End: 10-09-2023 ambulatory SARAH RODRIGUEZ Not Available Start: 08-07-2023 End: 08-07-2023 ambulatory KD MACIAS [facility] Start: 08-07-2023 End: 08-07-2023 Subsequent hospital visit by physician Kd Macias MD Work Phone: [facility] Start: 08-02-2023 End: 08-02-2023 ambulatory JASVIR LEÓN Not Available Start: 07-30-2023 End: 07-30-2023 ambulatory DAWOOD PEDROZA Not Available Start: 06-28-2023 End: 06-28-2023 ambulatory ODALYS RUSSO Not Available Start: 05-29-2023 End: 05-29-2023 ambulatory KD Partida [facility] Start: 05-23-2023 End: 05-23-2023 ambulatory JASVIR LEÓN Not Available Start: 05-14-2023 End: 05-14-2023 ambulatory [facility] Start: 05-09-2023 ambulatory JASVIR LEÓN [facility] Start: 05-09-2023 End: 05-09-2023 ambulatory KD Partida [facility] Start: 12-28-2022 End: 12-28-2022 ambulatory [facility] Start: 12-22-2022 End: 12-23-2022 ambulatory [facility] Start: 12-06-2022 ambulatory BRENT PERALTA Facility :[facility] Start: 11-22-2022 End: 11-22-2022 ambulatory [facility] Start: 11-13-2022 End: 11-15-2022 Evaluation and management of inpatient DR JASVIR LEÓN Facility:[facility] Start: 10-18-2022 End: 10-19-2022 ambulatory BRENT PERALTA Facility:[facility] Start: 10-06-2022 End: 10-08-[address] ROBERTO ZIMMERMAN . Facility:[facility] Start: 07-12-[address] ROBERTO ZIMMERMAN . Facili ty:[facility] Start: 06-26-2022 End: 06-27-2022 ambulatory FARZANEH ARNDT Facility:[facility] Start: 06-08-2022 End: 06-08-[address] JASVIR LEÓN Facility:[facility] Start: 04-30-2022 End: 05-02-2022 Evaluation and management of inpatient DR SHAYY MCCURDY . Facility:[facility] Start: 04-13-2022 End: 04-13-[address] JASVIR LEÓN Facility:[facility] Start: 04-12-2022 End: 04-13-[address] JASVIR LEÓN Facility:[facility] Start: 02-13-[address] JASVIR LEÓN Facilit y:[facility]1 Start: 02-12-2022 End: 02-12-[address] JASVIR LEÓN Facility:[facility] Start: 02-08-2022 End: 02-09-[address] JASVIR LEÓN Facility:[facility] Start: 12-20-2021 Encounter for preprocedural laboratory examination GRETTA OMALLEY [facility] Start: 12-20-2021 End: 12-21-2021 ambulatory GRETTA OMALLEY Facility:[facility] Start: 12-16-2021 End: 12-17-2021 ambulatory GRETTA OMALLEY Facility:[facility] Start: 12-16-2021 End: 12-17-2021 Encounter for preprocedural laboratory examination GRETTA OMALLEY Facility:[facility] Start: 06-06-2021 End: 06-06-2021 ambulatory Mariam Ward Other [facility] Other Start: 06-06-2021 Office outpatient vi sit 15 minutes Mariam Ward [facility] Plan of Treatment Date Care Activity Detail Author Start: 08-07-2023 End: 08-07-2023 Njx dx/ther agt pvrt facet jt lmbr/sac 1 level LUMBAR MEDIAL BRANCH BLOCK Lumbar spondylosis 08/07/2023 10:37 AM [facility] Start: 08-07-2023 End: 08-07-2023 Njx dx/ther agt pvrt facet jt lmbr/sac 2nd level LUMBAR MEDIAL BRANCH BLOCK Lumbar spondylosis 08/07/2023 10:37 AM [facility] Start: 06-04-2023 Annual Wellness Visi t (Medicare) Annual Wellness Visit (Medicare) [facility] Start: 1999 Respiratory Syncytia l Virus (RSV) or age 60 yrs+ (1 - 1-dose 60+ series) Respiratory Syncytial Virus (RSV) or age 60 yrs+ (1 - 1-dose 60+ series) [facility] Start: 1958 DTaP/Tdap/Td vaccine (1 - Tdap) DTaP/Tdap/Td vaccine (1 - Tdap) [facility] Start: 1951 Depression Screen Depression Screen [facility] Start: 1949 Lipid panel Lipids [facility] Oxygen therapy [[facility] Data Set] Initiate Oxygen Therapy Protocol Respiratory Care Routine As Needed until discontinued starting 08/07/2023 [facility] Work Phone: Comment on above: As Needed until disc ontinued starting 08/07/2023 Immunizations Immunization Date Immunization Notes Care Provider Chris green 03-31-2014 tetanus toxoid, reduced diphtheria toxoid, and acellular pertussis vaccine, adsorbed Mariam Ginty Other [facility] Other 09-01-2013 tetanus toxoid, reduced diphtheria toxoid, and acellular pertussis vaccine, adsorbed Mariam Ginty Other [facility] Other Payers Date Payer Category Payer [employer] others) [id number] 2016 [employer] [id number] 2016 [employer] [id number] 1959 [employer] others) [id number] 1959 Medicare [id number] 1939 Unknown [id number] 2.0.1.903575.3.579.2.647 1939 Unknown [id number] .0.1.004921.3.579.2.593 1939 Unknown [id number] 2.840.1.204347.3.579.2.593 1939 Unknown [id number] 2.16840.1.993333.3.579.2.593 1939 Unknown [id number] 2.840.1.553979.3.579.2.593 1939 Unknown [id number] 2.840.1.084096.3.579.2.593 1939 Unknown [id number] 2.16.840.1.172014.3.579.2.593 1939 Unknown [id number] 2.16.840.1.319161.3.579.2.593 1939 Unknown [id number] 2.16.840.1.574103.3.579.2.593 1939 Unknown [id number] 2.16.840.1.842192.3.579.2.593 1939 Unknown [id number] 2.16.840.1.626569.3.579.2.593 1939 Unknown [id number] 2.16.840.1.527227.3.579.2.593 1939 Unknown [id number] 2.840.1.097811.3.579.2.593 1939 Unknown [id number] 2..840.1.560506.3.579.2.593 1939 Unknown [id number] 2..840.1.172880.3.579.2.593 1939 Unknown [id number] 2.16.840.1.012586.3.579.2.754 1939 Unknown [id number] 2.840.1.683276.3.579.2.754 1939 Unknown [id number] 2.16840.1.367321.3.579.2.754 1939 Unknown [id number] 2.16.840.1.140762.3.579.2.754 1939 Unknown [id number] 2.16.840.1.593588.3.579.2.1259 1939 Unknown [id number] 2.16.840.1.064760.3.579.2.1259 1939 Unknown [id number] 2.16.840.1.502345.3.579.2.1259 1939 Unknown [id number] 2.16.840.1.506320.3.579.2.1259 1939 Unknown [id number] 2.16.840.1.792418.3.579.2.1259 Medicare [id number] 2.16 .840.1.579732.19 Social History Date Type Detail Facility Start: 05-30-2023 [facility] Other Start: 05-08-2023 Tobacco smoking status [facility] Ex-smoker [facility] [employer] Phone: End: 07-09-1996 History of tobacco use Current smoker [employer] [facility]: End: 07-09-1996 History of tobacco use Cigarette Smoker [employer]: Start: 05-08-2023 Tobacco use and exposure Smokeless tobacco non-user [employer] [facility]: Start: 05-30-2023 Alcohol intake Ex-drinker (finding) [employer] Phone: Start: 05-30-2023 History of Social function [employer] Phone: Start: 05-08-2023 Alcohol Comment social [employer] Phone: Start: 1940 Sex Assigned At Not on file [employer] Work Phone: Medical Equipment Procedure Code Equipment Code Equipment Origin al Text Equipment Identifier Dates Kyphon [employer] [id number] Start: 05-09-2023 Comment on above: Description: T12 Ref# [id number] by In Vitro route [id number] Clinical Notes 06-06-2021 to 08-07-2023 Carole Loyola LPN - 08/07/2023 10:57 AM ESTDischarge Instructions Note Date & Type Note Facility 08-07-2023 History of Present illness Narrative Pt alert and oriented. Denies pain at this time. Dressings at injection site clean and dry. Discharge instructions reviewed, no questions or concerns voiced. documented in this encounter [facility] Meyer Phone: 08-06-2023 Hospital Discharge instructions Carole Loyola LPN - 08/06/2023 3:[address] Macias Post Procedure Discharge Instructions for Pain Management Patients: * If you have received sedation ; It will make you drowsy for the next 12 hours. - Do not drive the rest of today - Do not make any important decisions or sign any legal documents for 24 hours - Do not consume any alcohol for at least 24 hours following your procedure. - Go home and rest - It is best that you go directly home when you leave here do not go out to eat - Do NOT soak in the bathtub or other water for at least 48 hours after the procedure. - You may remove the band-aids and shower the evening after your procedure, if needed. - DO NOT apply heat to the area of injection for 48 hours. - Place ice on any Painful injection site for 20 minutes, 3 times a day for the first 48 hours( while awake). - You may resume your regular diet.( if received sedation, advance slowly as tolerated) - You may resume your medication including any blood thinning medications tonight ( as instructed) - Your pain can change characteristic, location and intensity in the next 24 - 48 hours after your injection. Do not be alarmed. Call the office if you have concerns. - Complete your Pain Diary ( if you received one) and bring your completed form to your follow up appointment. Call your doctor if any of the following symptoms occur: - Fever above 101 degrees - Severe pain (that is not relieved by your medication) -Lower extremity weakness or extended numbness ( greater than 16 hours) - Redness, swelling , and/or pus discharge from the injection site - Excessive nausea / vomiting - Difficulty breathing or swallowing CALL [phone] Other Instructions: - You should have a follow-up appointment scheduled already or a follow-up plan in place prior to leaving. - Call the office if you develop any problems or have any questions at: [facility] [phone] or Our 24 hour help line is also available: [phone] ([phone]) If you need refills,or have questions / concerns, outside of our office hours Sunday 8:00 a.m - 4:30 p.m. at [facility], please call [phone] to speak to Constance STEINER or leave a voicemail for her. *Remember to allow at least 48 business hours for medication refill requests. documented in this encounter [facility] [employer] Phone: 05-14-2023 Note Cardiology Clinic No te Subjective Jennierick Villegas is a 83 y.o. year old female with past medical history of atrial fibrillation status post maze and surgical closure of left atrial appendage, heart failure preserved ejection fraction, and aortic valve stenosis status post aortic valve replacement seen in follow-up. Patient Active Problem List Diagnosis Anemia Diastolic heart failure (CMS/HCC) Dyspnea Hyperlipemia Mitral and aortic incompetence Atrial fibrillation with rapid ventricular response (CMS/HCC) Abnormal gait Abnormal laboratory test result Acquired hypothyroidism Acute on chronic systolic heart failure (CMS/HCC) Allergic rhinitis due to pollen Aortic valve disorder Asthma Chronic obstructive pulmonary disease (CMS/HCC) Diabetic renal disease (CMS/HCC) Difficulty walking Diverticulosis of colon Drug-induced constipation History of iron deficiency Heart valve transplanted Hyperthyroidism director long term care current use of anticoagulant therapy Mixed anxiety and depressive disorder Muscle weakness Obesity Obstructive sleep apnea syndrome Osteoarthritis of knee Osteopenia Peripheral vascular disease (CMS/HCC) Primary localized osteoarthrosis of ankle and foot Primary ovarian failure Restless legs syndrome Rheumatic mitral valve disease Spinal stenosis of lumbar region Stage 3a chronic kidney disease (CMS/HCC) Stenosis colon (CMS/HCC) Subclinical iodine-deficiency hypothyroidism Supraventricular premature beats Urinary incontinence S/P aortic valve replacement with bioprosthetic valve Pneumonia due to COVID-19 virus Esophageal reflux Drug level above therapeutic range Type 2 diabetes mellitus with peripheral angiopathy (CMS/HCC) Controlled diabetes mellitus type II without complication (CMS/HCC) Atrial flutter (CMS/HCC) Benign essential hypertension Pulmonary hypertension (CMS/HCC) Nontoxic single thyroid nodule Unsteadiness on feet Primary osteoarthritis of right foot Inflammation of foot joint Generalized osteoarthritis Diabetic mononeuropathy (CMS/HCC) Arthritis of ankle, right Anxiety Compression fracture of T12 vertebra (CMS/HCC) Pathological fracture of vertebra Peripheral angiopathy due to type 2 diabetes mellitus (CMS/HCC) Family History Problem Relation Name Age of Onset Diabetes Father Heart failure Father Other (neoplastic disease) Other Social History Tobacco Use Smoking status: Former Types: Cigarettes Smokeless tobacco: Never Substance Use Topics Alcohol use: Not Currently Drug use: Never HPI Jenni Villegas is a 82 y.o. female here for Atrial Fibrillation, Congestive Heart Failure, and Valve Disorder. She has history of aortic stenosis status post aortic valve replacement with a 23 mm trifecta tissue valve and surgical exclusion of the left atrial appendage, diastolic heart failure, mild CAD, paroxysmal atrial fibrillation post maze procedure and isolation of the pulmonary veins during the aortic valve replacement surgery. Normal coronary angiogram in 2016. Update: 01/23/2022 1. Aortic valve stenosis status post bioprosthetic aortic valve replacement in 2016: Recent FARA showed that the aortic valve had mildly elevated flows with a mean gradient of 16 mmHg. This will can be monitored in the future. At this time does not need intervention. She needs endocarditis prophylaxis prior to dental procedures. She is allergic to penicillin. I will prescribe azithromycin. 2. Mitral valve stenosis: This is mild by recent transesophageal echocardiogram. 3. Diastolic heart failure: Chronic, doing reasonably well on the current Entresto. Continue Lasix at 20 mg daily. I will check a CBC and BMP in 2 to 4 weeks and consider adjusting therapy as needed. 4. Permanent atrial fibrillation: Not on anticoagulation due to prior bleeding with Coumadin. Her recent FARA showed that the left atrial appendage has a residual stump post surgical exclusion. I recommended aspirin 81 mg daily. They know that there is increased risk of stroke off of anticoagulation therapy. 10/11/2022 -She was recently admitted for CHF exacerbation (diuresed), digoxin was stopped d/t toxicity. She had a holter monitor placed for symptomatic bradycardia. -She is wearing her O2 more often but her breathing feels better. -She c/o fatigue. -She denies c/o CP, orthopnea, PND, LE edema, dizziness/LH, palpitations. Update: 10/30/2022 She was last seen by by Virgen Peralta CNP on 10/11/2022. Her digoxin was discontinued due to toxicity. She has been experiencing palpitations associated with dyspnea with normal activity. Denies chest pain or extremity edema. Update: 05/14/2023 She has been unintentionally losing weight, lost 17 Ibs within the last 5 months Still wearing O2 PRN at nighttime Has occasional palpitations Recovering from a back surgery Denies chest pain, palpitations, worsening dyspnea or lower extremity edema Review of Syste (more content not included)... [facility] 05-14-2023 Note Patient here for 6 m o follow up chronic diastolic heart failure, PAF, and hx aortic valve replacement. Dr. Chao increased torsemide to 60mg daily in January 2023, but she's been taking 50mg in the AM due to frequent urination. Daughter is concerned that she's losing too much weight unintentionally, as she is down 17# since last visit in December 2022. She denies chest pain, SOB, LE edema, and increase in palpitations. Had a procedure done on her back a week or so ago and was told she was in stage 3 CKD. She does not see nephrology. Review of Systems Constitutional: Positive for weight loss (down 17# since December 2022). Cardiovascular: Positive for palpitations. Hematologic/Lymphatic: Bruises/bleeds easily. Musculoskeletal: Positive for arthritis and back pain. Neurological: Positive for numbness. All other systems reviewed and are negative. [facility] 12-28-2022 Note [place] [facility] - [facility] Subjective Jenni Villegas is a 82 y.o. year old female patient being seen for Follow-up Patient Active Problem List Diagnosis Anemia Diastolic heart failure (CMS/HCC) Dyspnea Hyperlipemia Mitral and aortic incompetence Atrial fibrillation with rapid ventricular response (CMS/HCC) Abnormal gait Abnormal laboratory test result Acquired hypothyroidism Acute on chronic systolic heart failure (CMS/HCC) Allergic rhinitis due to pollen Aortic valve disorder Asthma Chronic obstructive pulmonary disease (CMS/HCC) Diabetic renal disease (CMS/HCC) Difficulty walking Diverticulosis of colon Drug-induced constipation History of iron deficiency Heart valve transplanted Hyperthyroidism director long term care current use of anticoagulant therapy Mixed anxiety and depressive disorder Muscle weakness Obesity Obstructive sleep apnea syndrome Osteoarthritis of knee Osteopenia Peripheral vascular disease (CMS/HCC) Primary localized osteoarthrosis of ankle and foot Primary ovarian failure Restless legs syndrome Rheumatic mitral valve disease Spinal stenosis of lumbar region Stage 3a chronic kidney disease (CMS/HCC) Stenosis colon (CMS/HCC) Subclinical iodine-deficiency hypothyroidism Supraventricular premature beats Urinary incontinence S/P aortic valve replacement with bioprosthetic valve Pneumonia due to COVID-19 virus Esophageal reflux Drug level above therapeutic range Type 2 diabetes mellitus with peripheral angiopathy (CMS/HCC) Controlled diabetes mellitus type II without complication (CMS/HCC) Atrial flutter (CMS/HCC) Benign essential hypertension Pulmonary hypertension (CMS/HCC) Nontoxic single thyroid nodule Unsteadiness on feet Primary osteoarthritis of right foot Inflammation of foot joint Generalized osteoarthritis Diabetic mononeuropathy (CMS/HCC) Arthritis of ankle, right Family History Problem Relation Name Age of Onset Diabetes Father Heart failure Father Other (neoplastic disease) Other Social History Tobacco Use Smoking status: Former Types: Cigarettes Smokeless tobacco: Never Substance Use Topics Alcohol use: Not Currently Drug use: Never HPI Jenni is seen in follow-up. She is a 82-year-old woman. She has history of aortic stenosis status post aortic valve replacement with a 23 mm trifecta tissue valve and surgical exclusion of the left atrial appendage, diastolic heart failure, mild CAD, paroxysmal atrial fibrillation post maze procedure and isolation of the pulmonary veins during the aortic valve replacement surgery. She has history of prior admissions to [facility] with AF/RVR and diastolic heart failure decompensation. She has normal coronary angiogram in 2016. She was admitted from 16 August 2018- 08/30/18 with coagulopathy secondary to Coumadin use which resulted in a renal hematoma on the right side she required 4 units of packed cells and 2 units of FFP and her INR was noted to be 5.45 at that time. She has never been restarted on anticoagulation since then. prior FARA showed mild mitral regurgitation and mitral stenosis with increased Doppler flows across the bioprosthetic aortic valve. She was recently evaluated in cardiology clinic and an echocardiogram showed progression of aortic valve stenosis. This was further investigated by transesophageal echocardiogram that was done in December 2022 and showed evidence for moderate aortic bioprosthesis stenosis as well as moderate mitral valve stenosis, moderate to severe tricuspid regurgitation and an RVSP of 68 mmHg. She does have shortness of breath on exertion, NYHA class II-III along with mild lower extremity edema. Review of Systems Cardiovascular: Positive for leg swelling and palpitations. Respiratory: Positive for shortness of breath. Musculoskeletal: Positive for arthritis and back pain. Neurological: Positive for light-headedness, loss of balance and numbness. Numbness in feet All other systems reviewed and are negative. Objective Visit Vitals BP 147/62 (BP Location: Left arm, Patient Position: Sitting, BP Cuff Size: Adult) Pulse 74 Ht 1.575 m (5' 2 ) Wt 76.7 kg (169 lb) SpO2 93% BMI 30.91 kg/m??? OB Status Postmenopausal Smoking Status Former BSA 1.83 m??? Physical Exam Constitutional: Appearance: She is well-developed. She is not ill-appearing. HENT: Head: Normocephalic and atraumatic. Nose: Nose normal. Eyes: General: No scleral icterus. Pupils: Pupils are equal, round, and reactive to light. Neck: Thyroid: No thyromegaly. Vascular: JVD present. Cardiovascular: Rate and Rhythm: Normal rate and regular rhythm. Pulses: Radial pulses are 2+ on the right side and 2+ on the left side. Heart sounds: Murmur heard. Systolic (RUSB) murmur is present with a grade of 2/6. No friction rub. No gallop. Pulmonary: Effort: Pulmonary effort is normal. No respiratory distress. Br (more content not included)... [facility] 12-22-2022 Note Patient: Jenni Liao Procedure Information Date/Time: 12/22/22 1230 Procedure: TRANSESOPHAGEAL ECHO (FARA) Location: [facility] Vascular Lab Clinical information reviewed: Physical Exam Airway Mallampati: II TM distance: >3 FB Neck ROM: full Cardiovascular Dental Pulmonary Abdominal Anesthesia Plan ASA 2 Anesthetic plan and risks discussed with patient. Use of blood products discussed with patient who. Plan discussed with attending. Additional Equipment Requests Yanet Rabago MD Market Developer - PGY4 [facility] 11-22-2022 Note [facility] Review of Systems Constitutional: Positive for malaise/fatigue and weight loss. Respiratory: Positive for snoring. Skin: Positive for color change. Musculoskeletal: Positive for back pain. Neurological: Positive for excessive daytime sleepiness. All other systems reviewed and are negative. [facility] 11-22-2022 Note Cardiovascular Medic [facility] SUBJECTIVE Chief Complaint Patient presents with Congestive Heart Failure f/u [facility] for CHF Jennierick Villegas is a 82 y.o. female here for hospital follow-up. Her daughter accompanied her today. Congestive Heart Failure Jenni Villegas is a 82 y.o. female here for Atrial Fibrillation, Congestive Heart Failure, and Valve Disorder. She has history of aortic stenosis status post aortic valve replacement with a 23 mm trifecta tissue valve and surgical exclusion of the left atrial appendage, diastolic heart failure, mild CAD, paroxysmal atrial fibrillation post maze procedure and isolation of the pulmonary veins during the aortic valve replacement surgery. Normal coronary angiogram in 2016. 10/11/2022 -She was recently admitted for CHF exacerbation (diuresed), digoxin was stopped d/t toxicity. She had a holter monitor placed for symptomatic bradycardia. -She is wearing her O2 more often but her breathing feels better. -She c/o fatigue. -She denies c/o CP, orthopnea, PND, LE edema, dizziness/LH, palpitations. 11/21/2022 -Since seen on 10/30/22 she was admitted for sinus tachycardia, dyspnea, hyperkalemia, CATHY, UTI. -At discharge her lisinopril and amlodipine were held. Her Cr remained elevated, not at baseline at discharge. She will be seeing her PCP next week. She has been feeling well since her discharge. BP running 120-130s/70-80s She denies c/o CP, dyspnea, palpitations, dizziness/LH, leg swelling. Patient Active Problem List Diagnosis Anemia Diastolic heart failure (CMS/HCC) Dyspnea Hyperlipemia Mitral and aortic incompetence Atrial fibrillation with rapid ventricular response (CMS/HCC) Abnormal gait Abnormal laboratory test result Acquired hypothyroidism Acute on chronic systolic heart failure (CMS/HCC) Allergic rhinitis due to pollen Aortic valve disorder Asthma Chronic obstructive pulmonary disease (CMS/HCC) Diabetic renal disease (CMS/HCC) Difficulty walking Diverticulosis of colon Drug-induced constipation History of iron deficiency Heart valve transplanted Hyperthyroidism director long term care current use of anticoagulant therapy Mixed anxiety and depressive disorder Muscle weakness Obesity Obstructive sleep apnea syndrome Osteoarthritis of knee Osteopenia Peripheral vascular disease (CMS/HCC) Primary localized osteoarthrosis of ankle and foot Primary ovarian failure Restless legs syndrome Rheumatic mitral valve disease Spinal stenosis of lumbar region Stage 3a chronic kidney disease (CMS/HCC) Stenosis colon (CMS/HCC) Subclinical iodine-deficiency hypothyroidism Supraventricular premature beats Urinary incontinence S/P aortic valve replacement with bioprosthetic valve Pneumonia due to COVID-19 virus Esophageal reflux Drug level above therapeutic range Type 2 diabetes mellitus with peripheral angiopathy (CMS/HCC) Controlled diabetes mellitus type II without complication (CMS/HCC) Atrial flutter (CMS/HCC) Benign essential hypertension Pulmonary hypertension (CMS/HCC) Nontoxic single thyroid nodule Past Medical History: Diagnosis Date Anemia Aortic valve disorder 04/20/2016 aortic valve replacement with a 23 mm trifecta tissue valve: 2016 Atrial fibrillation (CMS/HCC) Bradycardia CHF (congestive heart failure) (CMS/HCC) Heart valve disease Hyperlipidemia Hypertension Sleep apnea Family History Problem Relation Name Age of Onset Diabetes Father Heart failure Father Other (neoplastic disease) Other Social History Tobacco Use Smoking status: Former Types: Cigarettes Smokeless tobacco: Never Substance Use Topics Alcohol use: Not Currently Drug use: Never Allergies Allergen Reactions Codeine Entresto [Sacubitril-Valsartan] Penicillins Other ROS Constitutional: Positive for malaise/fatigue and weight loss. Respiratory: Positive for snoring. Skin: Positive for color change. Musculoskeletal: Positive for back pain. Neurological: Positive for excessive daytime sleepiness. All other systems reviewed and are negative. OBJECTIVE Visit Vitals BP 118/72 (BP Location: Left arm, Patient Position: Sitting, BP Cuff Size: Adult) Pulse 92 Ht 1.575 m (5' 2 ) Wt 78.1 kg (172 lb 3.2 oz) SpO2 93% BMI 31.50 kg/m??? Smoking Status Former BSA 1.85 m??? Medications: Current Outpatient Medications: ALPRAZolam (Xanax) 0.25 mg tablet, take 1 tablet by mouth every 6 to 8 hours-15 DAY SUPPLY, Disp: , Rfl: aspirin 81 mg EC tablet, Take 81 mg by mouth in the morning., Disp: , Rfl: atorvastatin (Lipitor) 20 mg tablet, Take 1 tablet by mouth at bedtime., Disp: , Rfl: buPROPion SR (Wellbutrin SR) 150 mg 12 hr tablet, Take 1 tablet by mouth in the morning and at bedtime., Disp: , Rfl: calcium carbonate-vitamin D3 600 mg-5 mcg (200 unit) tablet, Take 600 tablets by mouth 1 (one) time each day at the same time., Disp: , Rfl: carvedilol (Coreg) 12.5 mg (more content not included)... [facility] 06-08-2022 Note HISTORY AND PHYSICAL EXAMINATION Date:06/07/2022 HISTORY: The patient is an 82-year-old white female with complaints of declining vision out of her right eye. This has been slow in progress over the last two years, gradually worsening. She is bothered by glare and halos at night time while driving from ongoing cars and their headlights. She also has difficulty seeing the television and reading. PAST OCULAR HISTORY / PAST MEDICAL HISTORY / SOCIAL HISTORY / MEDICATIONS / ALLERGIES TO MEDICATIONS / REVIEW OF SYSTEMS and PHYSICAL EXAM: Unchanged from previously dictated. ASSESSMENT AND PLAN: 1. Visually significant cataract, right eye. After risks, benefits, alternatives, as well as expectations were delivered to the patient, she elected to go forward with cataract removal. She understands the risks include but not limited to infection, bleeding, loss of vision, loss of the eye itself. Secondly, she understands postoperatively she is likely to require spectacle correction for best visual acuity. Finally, a complete ophthalmic exam was performed, there is not determined to be any other source of visual decline other than that of the cataract. 2. COVID-19, the patient was briefed in the office and consented for elective cataract surgery in the setting of the pandemic of coronavirus. She understands that she is at heightened risk going into a hospital setting; however, feels that her activities of daily living are depleted severe enough by her cataracts that she is willing to incur this risk and go forward with her elective procedure. [facility] 06-08-2022 Note OPERATIVE NOTE OPERATION DATE: 06/08/2022 SURGEON: Dawood Pedroza D.O. PREOPERATIVE DIAGNOSIS: Nuclear sclerotic cataract right eye. POSTOPERATIVE DIAGNOSIS: Nuclear sclerotic cataract right eye. PROCEDURE NAME: Cataract extraction with intraocular lens placement of the right eye. ANESTHESIA: Topical ESTIMATED BLOOD LOSS: Zero. COMPLICATIONS: None. PROCEDURE: The patient was brought to the Operating Room in supine position. After proper identification, the right eye was prepped and draped in a sterile ophthalmic fashion. A paracentesis created at the 11 o'clock position. Approximately 1 mL of unpreserved Xylocaine was injected into the anterior chamber followed by Amvisc Plus. Using a 2.6 mm Keratome blade, a clear corneal incision was created at the 9 o'clock limbus. A cystotome was then used to begin a curvilinear capsulorrhexis that was continued for 360 degrees with the Utrata forceps. BSS on a 26 gauge cannula was injected beneath the anterior capsule to hydrodissect as well as hydrodelineate the lens. After ensuring mobility, phacoemulsification was performed in a [id number]-type fashion. After all nuclear material had been removed from the eye, IA was introduced and all residual cortical material was cleaned up. Additional Amvisc Plus was injected into the posterior bag and a lens model MX60, 22.0 diopters was injected and dialed into position. After ensuring centration, IA was introduced into the anterior chamber and all residual Amvisc Plus was removed from the eye. BSS on a 30 gauge cannula was injected into the stroma of both the clear corneal incision as well as paracentesis to hydrate the wounds. Additional BSS was injected into the anterior chamber to pressurize the eye at approximately 20 to 22 mmHg by finger tension. Weck-Sofi sponges were used to check the wounds to be watertight and a shield was placed over top. The patient was sent to the postoperative area in satisfactory condition to follow up the following day for postoperative care. [facility] 04-13-2022 Note OPERATIVE NOTE OPERATION DATE: 04/13/2022 SURGEON: Dawood Pedroza M.D. PREOPERATIVE DIAGNOSIS: Nuclear sclerotic cataract left eye. POSTOPERATIVE DIAGNOSIS: Nuclear sclerotic cataract left eye. PROCEDURE: Cataract extraction with intraocular lens placement of the left eye. ANESTHESIA: Topical ESTIMATED BLOOD LOSS: Zero. COMPLICATIONS: None. PROCEDURE: The patient was brought to the Operating Room in supine position. After proper identification, the left eye was prepped and draped in a sterile ophthalmic fashion. A paracentesis was created at the 5 o'clock position. Approximately 1 mL of unpreserved Xylocaine was injected into the anterior chamber followed by Amvisc Plus. Using a 2.6 mm Keratome blade, a clear corneal incision was created at the 3 o'clock limbus. A cystotome was then used to begin a curvilinear capsulorrhexis that was continued for 360 degrees with the Utrata forceps. BSS on a 26 gauge cannula was injected beneath the anterior capsule to hydrodissect as well as hydrodelineate the lens. After ensuring mobility, phacoemulsification was performed in a [id number]-type fashion. After all nuclear material had been removed from the eye, IA was introduced and all residual cortical material was cleaned up. Additional Amvisc Plus was injected into the posterior bag and a lens model MX60, 22.0 diopters was injected and dialed into position. After ensuring centration, IA was introduced into the anterior chamber and all residual Amvisc Plus was removed from the eye. BSS on a 30 gauge cannula was then injected into the stroma of both the clear corneal incision as well as paracentesis to hydrate the wounds. Additional BSS was injected into the anterior chamber to pressurize the eye at approximately 20 to 22 mmHg by finger tension. 0.1 mL of antibiotic was injected into the anterior chamber and Weck-Sofi sponges were used to check the wounds to be watertight. One drop of apraclonidine and one drop of prednisolone acetate were placed into the eye and a shield was placed over top. The patient was sent to the postoperative area in satisfactory condition to follow up the following day for postoperative care. [facility] 04-13-2022 Note HISTORY AND PHYSICAL EXAMINATION Date:04/12/2022 HISTORY: The patient is an 82-year-old white female with complaints of declining vision out of her left eye. She believes that this has progressed over the last two years, worsening throughout that timeframe. She struggles most with reading and bright lights creating glare and halos. PAST OCULAR HISTORY: Cataracts. PAST MEDICAL HISTORY: 1. Hysterectomy. 2. Gallbladder removed. 3. Atrial fibrillation. 4. Hypertension. 5. Hypercholesterolemia. 6. GERD. 7. Insulin dependent diabetes mellitus. SOCIAL HISTORY: Denies tobacco, alcohol or recreational drug abuse. SYSTEMIC MEDICATIONS: Torsemide, ropinirole, probenecid, colchicine, omeprazole, lisinopril, hydrocodone/acetaminophen p.r.n., citalopram, digoxin, carvedilol, bupropion, atorvastatin, amlodipine. ALLERGIES: To penicillin and codeine. REVIEW OF SYSTEMS: No pertinent positives. PHYSICAL EXAM: VITALS: Blood pressure measured 128/68, respiration of 12 and pulse of 88. GENERAL: She is awake, alert and oriented x3, well developed, well nourished, in no acute distress. HEART: Regular rate and rhythm. LUNGS: Clear bilaterally. ABDOMEN: Soft, non-tender, non-distended. EXTREMITIES: No pitting edema. OPHTHALMIC EXAM: Revealed a visual acuity of 20/100 that glared to 20/400 in the right eye and 20/70 that glared to 20/200 in the left eye. Pupils motility, muscle balance, confrontational visual sher within normal limits bilaterally. Pressures measured at 16 bilaterally. Slit lamp exam revealed blepharitis with a severe decrease in tear film bilaterally. Conjunctiva, cornea, anterior chamber and iris were within normal limits bilaterally. Lens status demonstrated a 2-3+ nuclear sclerosis with 3+ cortical changes and central vacuoles bilaterally. FUNDUS EXAM: Revealed a hazy view bilaterally. Optic discs, macula, vessels, periphery and vitreous were within normal limits bilaterally. ASSESSMENT AND PLAN: 1. Visually significant cataract, left eye. After risks, benefits, alternatives, as well as expectations were delivered to the patient, she elected to go forward with cataract removal. She understands the risks include but not limited to infection, bleeding, loss of vision, loss of the eye itself. Secondly, she understands postoperatively she is likely to require spectacle correction for best visual acuity. Finally, a complete ophthalmic exam was performed, there is not determined to be any other source of visual decline other than that of the cataract. 2. COVID-19, the patient was briefed in the office and consented for elective cataract surgery in the setting of the pandemic of coronavirus. She understands that she is at heightened risk going into a hospital setting; however, feels that her activities of daily living are depleted severe enough by her cataracts that she is willing to incur this risk and go forward with her elective procedure. [facility] 06-06-2021 Evaluation note Encounter Date Diagnosis Assessment Notes May, Contact with and (suspected) exposure to other viral communicable diseases (ICD-10 - Z20.828) May, Viral URI with cough (ICD-10 - J06.9) Advised patient that rapid COVID antigen test and Influenza A/B was negative today. Advised patient that will tx as viral URI. Supportive care as directed, increase fluids and rest, Tylenol/Motrin as directed, OTC cough/cold remedies as directed on packaging such as Cordicidin HBP, cool mist humidifier, throat lozenges. Discussed infection control practices such as good hand washing and mask wearing. Patient to follow up with PCP if sx persist or worsen despite treatment. Immediate eval by ER for warning s/sx as discussed, including but not limited to, SOB, difficulty breathing, chest pain, palpitations, fever >103 or fevers that are not reduced with antipyretic, significant dehydration (unable to keep fluids or food down, persistent vomiting/diarr hea), abdominal pain, lethargy, severe headache. Patient verbalizes understanding and is agreeable to treatment plan May, Other Additional time spent conducting pre-visit phone call, screening for symptoms, instructions on social distancing, application and removal of PPE, and cleaning of examination room, equipment and supplies was preformed. Patient education given for testing methodology and results. Patient care instructions given in writting by [facility] Care At Home document Jukely Other Evaluation note* Diagnosis Lumbar spondylosis- Primary Lumbosacral spondylosis without myelopathy documented in this encounter [id number] Group Phone: History general Narrative - Reported* Type Description Date Medical History htn Medical History depression Medical History anxiety Medical History gerd Medical History chf Medical History aortic insuffency Medical History diabetes type 2 Surgical History gall bladder Surgical History cardiac cath x 2 Surgical History hysterectomy Surgical History left knee arthroscopy Surgical History bunion surgery Surgical History arm surgery Hospitalization History see above list Hospitalization History chf x3 Jukely Other Summary Purpose Family History No Family History Records FoundNo Family History Records FoundNo Family History Records FoundNo Family History Records FoundNo Family History Records FoundNo Family History Records FoundNo Family History Records Found Advance Directives No Advanced Directives Records FoundLatest Code Status on File Code Status Date Activated Date Inactivated Comments Full Code 08/07/2023 10:11 AM Code Status History Code Status Date Activated Date Inactivated Comments Full Code 05/29/2023 7:56 AM 05/29/2023 10:26 AM Full Code 05/09/2023 9:08 AM 05/09/2023 12:32 PM Additional Source Comments INFORMATION SOURCE (unrecogn ized section and content) DATE CREATED AUTHOR 08/19/2021 [facility] dical Specialist DATE CREATED AUTHOR AUTHOR'S ORGANIZ ATION 12/26/2021 [facility] DATE CREATED AUTHOR AUTHOR'S ORGANIZ ATION 12/15/2022 [facility] DATE CREATED AUTHOR AUTHOR'S ORGANIZ ATION 05/18/2023 [facility] DATE CREATED AUTHOR AUTHOR'S ORGANIZ ATION 08/08/2023 [facility] DATE CREATED AUTHOR AUTHOR'S ORGANIZ ATION 10/10/2023 [facility] dical Specialists EPIC DATE CREATED AUTHOR AUTHOR'S ORGANIZ ATION 11/19/2023 [facility] REASON FOR VISIT (unrecogniz ed section and content) Specialty Diagnoses / Procedures Referred By Contac t Referred To Contact Diagnoses Lumbar spondylosis Lumbar spondylosis [M47.816] Procedures IA NJX DX/THER AGT PVRT FACET JT LMBR/SAC 1 LEVEL IA NJX DX/THER AGT PVRT FACET JT LMBR/SAC 2ND LEVEL B/L LUMBAR MEDIAL BRANCH BLOCK L3 L4 L5 B/L LUMBAR MEDIAL BRANCH BLOCK L3 L4 L5 Kd Macias MD [address] [place] [address] [facility] Phone: [phone] Referral ID Status Reason Start Date Expiration Date Visits Re quested Visits Authorized [id number] 1 1 PRN Active and Recently Administ ered Medications (unrecognized section and content) Medication Order 08/05/2023 08/06/2023 08/07/2023 BUPivacaine (PF) (MARCAINE) 0.5 % injection (CANCELED) PRN, Starting on Sun08/07/23 at 0957, Until Sun08/07/23 at 1048, Intra-op 0957 (Given - Provid er: Kd Macias MD - Comment: Dose amount per Dr. Macias) lidocaine 1% (buffered) injection (CANCELED) PRN, Starting on Sun08/07/23 at 0957, Until Sun08/07/23 at 1048, Intra-op 0957 (Given - Provid er: Kd Macias MD - Comment: Dose amount per Dr. Macias) Care Teams (unrecognized sec tion and content) Driver/Sales Workers Relationship Specialty Start Date End Date Jasvir León MD [address] [facility] [address] [place] [address] PCP - General Internal Medicine 10/30/23 FOR RECORDS PERTAINING TO PATIENTS WHO ARE OR HAVE BEEN ENROLLED IN A CHEMICAL DEPENDENCY/SUBSTANCEABUSE PROGRAM, SOME INFORMATION MAY BE OMITTED. This clinical summary was aggregated from multiple sources. Caution should be exercised in using it in the provision of clinical care. This summary normalizes information from multiple sources, and as a consequence, information in this document may materially change the coding, format and clinical context of patient data. In addition, data may be omitted in some cases. CLINICAL DECISIONS SHOULD BE BASED ON THE PRIMARY CLINICAL RECORDS. [facility]. provides no warranty or guarantee of the accuracy or completeness of information in this document.
[2023-11-19 14:31] LABS: Free T3 2.19 pg/mL (2.18-3.98); Thyroid Stimulating Hormone 4.041 uIU/mL (0.358-3.740)
[2023-11-19 15:11] LABS: Free T4 1.05 ng/dL (0.76-1.46)
== END 2023-11-19 12:12 | disposition home or self-care (01) ==
LOC: LAB 12:11
PROVIDERS: PCP Internal Medicine; Visit Provider Internal Medicine
DX: E02 Subclinical iodine-deficiency hypothyroidism (principal)
CPT/HCPCS: 36415; 84439; 84443; 84481

== ENCOUNTER 2024-01-03 10:40 | Outpatient (OUT) | payer MEDICARE, OTHER, SELFPAY ==
--- OUTSIDE RECORDS SUMMARY | 2024-01-03 10:57 | XMS_ITS | CCD ---
Author Organization [facility] Care Team Providers Care Store Receiver Name Role Phone GRETTA OMALLEY Admitting Unavailable [...] PEDROZA Attending Unavailable DAWOOD PEDROZA Admitting Unavailable KHARI, DR ISRAEL Primary Care Unavailable DAWOOD PEDROZA Admitting Unavailable DAWOOD PEDROZA Consulting Unavailable DAWOOD PEDROZA Attending Unavailable ELSIE ., DR MEJIA Attending Unavailable HOY ., DR MEJIA Admitting Unavailable HOY ., DR MEJIA Primary Care Unavailable HOY ., DR MEJIA Consulting Unavailable PAY ., DR TESFAYE Consulting Unavailable SHAIKH Selam SCHMIDT Consulting Unavailable JENNY MARQUEZ Consulting Unavailable DR JASVIR LEÓN Primary Care Unavailable NICK ., DR CORNEJO Consulting Unavailable NICK ., DR CORNEJO Attending Unavailable NICK ., DR CORNEJO Admitting Unavailable TYLER MENENDEZ Consulting Unavailable CALLI ., DR SHAYY Azul Consulting Unavailable CALLI ., DR SHAYY Azul Attending Unavailable KHARI, DR ISRAEL Primary Care Unavailable CALLI ., DR SHAYY Azul Admitting Unavailable GALO, DR TONIA Mendiola Consulting Unavailwagner HAWKINS, DR MEENA Boucher Consulting Unavailable VANESSA DALLAS Consulting Unavailable BRENT PERALTA Consulting Unavailable DR JASVIR LEÓN Primary Care Unavailable ELSIE ., DR MEJIA Attending Unavailable HOAlexey ., DR MEJIA Admitting Unavailable HOAlexey ., DR MEJIA Consulting Unavailable HAY ., DR CORNEJO Consulting Unavailable SADIE GARCIA Consulting Unavailable MEENA WOOTEN Consulting Unavailable AMANDA DANIELS Consulting Unavailable FELIPA ARANDA Consulting Unavailable GRETTA OMALLEY Consulting Unavailable GRETTA OMALLEY Attending Unavailable SHAHRAM, GRETTA Admitting Unavailable KHARI, DR ISRAEL Primary Care Unavailable BRENT PERALTA Consulting Unavailable DYAN, BRENT Attending Unavailable DYAN, BRENT Admitting Unavailable KHARI, DR ISRAEL Primary Care Unavailable DYAN, BRENT Consulting Unavailable DYAN, BRENT Attending Unavailable DYAN, BRENT Admitting Unavailable KHARI, DR ISRAEL Primary Care Unavailable YRIS, FARZANEH Consulting Unavailable YRIS, FARZANEH Attending Unavailable HOAlexey ., DR MEJIA Primary Care Unavailable YRIS, FARZANEH Admitting Unavailable LEÓN, DR ISRAEL Primary Care Unavailable WEST, DR MEENA Boucher Consulting Unavailable VERNA, AHMAD Attending Unavailable VERNA, AHMAD Admitting Unavailable VERNA, AHMAD Consulting Unavailable Jasvir León MD Primary Care Provider BAHKD Judd M Admitting Unavailable BAHKD Judd Attending Unavailable JASVIR LEÓN Primary Care Unavailable BAHKD Judd Attending Unavailable JASVIR LEÓN Primary Care Unavailable BAHN, KD M Admitting Unavailable JASVIR LEÓN Primary Care Unavailable BAHKD Judd Attending Unavailable JASVIR LEÓN Primary Care Unavailable BAHN, KD M Admitting Unavailable RAMY IBRAHIM Attending Unavailable YRIS, FARZANEH Attending Unavailable DYAN, BRENT Referring Unavailable JOSEFINA CHAO Attending Unavailable JASVIR LEÓN Attending Unavailable DAWOOD PEDROZA Attending Unavailable RALF FERGUSON Referring Unavailable ODALYS RUSSO Attending Unavailable JASVIR LEÓN Referring Unavailable JASVIR LEÓN Attending Unavailable SARAH RODRIGUEZ Attending Unavailable JASVIR LEÓN Attending Unavailable Allergies Allergy Classification Reported Allergen(s) Allergy Type Date of Onset Reaction(s) Facility (4 sources) Codeine; Translations: [CODEINE] Drug Allergy 4 [facility] Rep[facility] (4 sources) Penicillins; Translations: [PENICILLINS] Drug allergy (disorder) 2 [facility] (1 source) penicillian Propensity to adverse reactions rash [facility] [place] Other (1 source) codiene Propensity to adverse reactions abdominal pain [facility] [place] Other (2 sources) sacubitril / valsartan Drug Allergy 2 [facility] Repository (1 source) Codeine Drug Allergy 3 [...] 3B] Onset: 2 Congestive heart failure; nonhypertensive (18 sources) Acute combined systolic (congestive) and diastolic [...] UNSPECIFIED] Onset: 2 Chronic Heart valve disorders (15 sources) Presence of prosthetic heart valve; 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, aortic and tricuspid valves] Onset: 2 Chronic Hypertension with complications and secondary hypertension (6 sources) Hypertensive heart disease with heart failure; Translations: [Hypertensive heart and chronic kidney disease with heart failure and stage 1 through stage 4 chronic kidney disease, or unspecified chronic kidney disease] Onset: 2 Chronic Menopausal disorders (1 source) Hormone replacement therapy; Translations: [HORMONE REPLACEMENT THERAPY] Onset: 3 Episodic Mood disorders (1 source) Mood disorders; Translations: [DEPRESSION UNSPECIFIED] Onset: 3 Other aftercare (1 source) [facility] (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 of insulin; Translations: [FCI CURRENT USE OF INSULIN] Onset: 3 Episodic Other aftercare (1 source) buttermaker (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 of aspirin; Translations: [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 USE OF ASPIRIN] Onset: 3 Episodic Other aftercare (1 source) Other terminal operations manager (current) drug therapy; Translations: [OTH [facility]CI CURRENT DRUG THERAPY] Onset: 3 Episodic Other [...] SIM ACT ACC INIT] Onset: 3 Episodic Pulmonary heart disease (2 sources) Pulmonary hypertension, unspecified; Translations: [Pulmonary hypertension, unspecified] Onset: 3 Chronic Residual codes; unclassified (1 source) Acquired absence [...] region] Onset: 3 05-29-2023 Episodic Thyroid disorders (7 sources) Hypothyroidism, unspecified; Translations: [Thyrotoxicosis, unspecified without [...] [ABNORMAL WEIGHT LOSS] Onset: 04-14-2022 Episodic Other upper respiratory infections (1 source) Acute upper respiratory infection, unspecified Onset: 06-06-2021 Resolved: 06-06-2021 Episodic Pneumonia (except that caused by tuberculosis or sexually transmitted disease) (3 sources) Pneumonia, unspecified organism; Translations: [PNEUMONIA UNSPECIFIED ORGANISM] Onset: 04-30-2022 Episodic Results Test Name Value Interpretation Reference Range Facility 37on 12-07-2023 37 Have blood drawn in 1-2 week please to check kidney function *Continue heart healthy diet and low sodium diet. *Monitor daily weights, fluid restriction 1.5-2Liters/day, lab work to check kidney/renal function and electrolytes *Call office for weight gain of 2 pounds in 1 day or 5 pounds in 1 week, increased leg swelling, shortness of breath or shortness of breath at night and having to sleep sitting up taller/more pillows than normal or in recliner. Normal [facility] Office Visiton 12-07-2023 Follow-up visit [id number] Jenni Villegas 1940 F Date Provider Department Center 12/07/2023 FARZANEH PERSAUD SYMONE Jose Alfredo [facility] Family History Problem Relation Age of Onset Diabetes Father Heart failure Father Other Other Family Status - Relation Status Age at Father Other Level of Service:18812 MS OFFICE/OUTPATIENT ESTABLISHED MOD MDM 30 MIN Normal [facility] 36on 11-16-2023 36 Regarding echo performed on 10/23/2023: MD Mariaa Fernandes MA; Farzaneh Arndt NP [place], she sees you soon, echo is consistent with volume overload, I could consider intensification of diuretics before determining the need for FARA Normal [facility] XR COMPARISON OF OUTSIDE HIRAL MSon 08-07-2023 XR COMPARISON OF OUTSIDE FILMS RADRPT There is no result for this study. This is a placeholder for comparison films only. Final result Normal [facility] XR COMPARISON OF OUTSIDE HIRAL MSon 05-29-2023 XR COMPARISON OF OUTSIDE FILMS RADRPT There is no result for this study. This is a placeholder for comparison films only. Final result Normal [facility] Office Visiton 05-14-2023 Follow-up visit [id number] Jenni Villegas 1940 F Date Provider Department Center 05/14/2023 [id number] IBRAHIM CARD Jose Alfredo [facility] Family History Problem Relation Age of Onset Diabetes Father Heart failure Father Other Other Family Status - Relation Status Age at Father Other Level of Service:82183 MS OFFICE/OUTPATIENT ESTABLISHED MOD MDM 30-39 MIN Normal [facility] FLUORO FOR SURGICAL PROCEDUR ESon 05-09-2023 FLUORO FOR SURGICAL PROCEDURES RADRPT Radiology exam is complete. No Radiologist dictation. Please follow up with ordering provider. Final result Normal [facility] SURGICALon 05-09-2023 SURGICAL [facility] JENNI VILLEGAS [id number] Assoc. Page 1 of [address] [place] [address] PROC: 05/09/2023 [facility] RECV: 05/11/[address] RPTD: 05/16/2023 [place] [address] LOC: [facility] ACCT: [id number] SEX: F : 1940 AGE: 83 Y [...] Gross Examination: The container is labeled Jenni Villegas T12 vertebral body biopsy. Received in formalin [...] negative. The CD138 demonstrates scattered plasma cells. [place] and lambda surface immunoglobulin light chain LALO is performed with adequate controls. The kappa and lambda stains demonstrate a polytypic plasma cell population. Overall, there is no evidence of an atypical infiltrate. Malignancy is not identified. *This test was developed and its performance characteristics determined by [facility]. It has not been cleared or approved by the U.S. Food and Drug Administration. Pursuant to the requirements of CLIA, this laboratory has established and verified the test's accuracy and precision. Additional information about this type of test is available upon request. [phone] INDY PLATT M.D., F.C.A.P. 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) [M80.08XA] Pre-op diagnosis: T12 Vertebral Body Biopsy Result Comment: [facility] JENNI VILLEGAS [id number]\X0D0A\Assoc. Page 1 of 1\X0D0A\[address]\X0D0A\[place] [address]\X0D0A\ PROC: 05/09/2023\X0D0A\[facility]ML/[facility] RECV: 05/11/2023\X0D0A\[address] RPTD: 05/16/2023\X0D0A\[place] [address]\X0D0A\ LOC: [facility]\X0D0A\ ACCT: [id number] SEX: F\X0D0A\ : 1940 AGE: 83 Y\X0D0A\X0D0A\ PATHOLOGY REPORT\X0D0A\ ATTN: NON-STAFF PHYSICIAN\X0D0A\ REQ: KD MACIAS\X0D0A\X0D0A\X0D0A\Copies To: JASVIR LEÓN\X0D0A\X0D0A\X0D0A\Clinical Information: AGE-RELATED OSTEOPOROSIS WITH [...] negative. The CD138 demonstrates scattered plasma cells. [place] and\X0D0A\lambda surface immunoglobulin light chain LALO is performed with\X0D0A\adequate controls. The kappa and lambda stains demonstrate a polytypic\X0D0A\plasma cell population. Overall, there is no evidence of an atypical\X0D0A\infiltrate. Malignancy is not identified.\X0D0A\X0D0A\*This test was developed and its performance characteristics determined\X0D0A\by [facility]. It has not been cleared or\X0D0A\approved by the U.S. Food and Drug Administration. Pursuant to the\X0D0A\requirements of CLIA, this laboratory has established and verified the\X0D0A\test's accuracy and precision. Additional information about this type\X0D0A\of test is available upon request.\X0D0A\X0D0A\05949\X0D0A\34723\X0D0A\36121 x 3\X0D0A\35154\X0D0A\09066\X0D0A\X0D0A\X0D0A\X0D0A\ \X0D0A\ INDY PLATT M.D., F.C.A.P.\X0D0A\X0D0A\X0D0A\TNML/ [facility] Printed on: 05/16/2023\X0D0A\[address]\X0D0A\[place], [place] [address]\X0D0A\Original print date: 05/16/2023 Performed By: #### 1 [id number] #### [facility] See Report 36on 02-04-2023 36 I reviewed labs from 02/02/2023. Please have her increased torsemide further to a total 60 mg daily (she can do 30 mg bid) and get same repeat labs in 2-3 weeks. Also please make sure she follows with Dr León regarding her low glucose. [facility] Telephoneon 02-04-2023 Telephone [id number] Jenni Villegas 1940 Date Provider Department [facility] 02/04/2023 RockyJOSEFINA LAWSON SYMONE Jose Alfredo [facility] Family History Problem Relation Age of Onset Diabetes Father Heart failure Father Other Other Family Status - Relation Status Age at Father Other [facility] Office Visiton 12-28-2022 Follow-up visit [id number] Jenni Villegas 1940 Date Provider Department [facility] 12/28/2022 RaeJOSEFINA CHAO SYMONE Jose Alfredo [facility] Family History Problem Relation Age of Onset Diabetes Father Heart failure Father Other Other Family Status - Relation Status Age at Father Other Level of Service:84041 MS OFFICE/OUTPATIENT ESTABLISHED MOD MDM 30-39 MIN Reason for Visit and Comments: Follow-up [427889] [facility] HPon 12-22-2022 HP H&P reviewed. The patient was examined and there are no changes to the H&P. FARA needs to be done to assess the aortic valve. The risks, benefits, and alternatives were discussed with the patient who has elected to proceed with the procedure. Yanet Rabago MD Manager Proposal - PGY4 [facility] NURSNOTEon 12-22-2022 NURSNOTE Bedside swallow stud y performed and passed. RN educated pt on d/c instructions. RN encouraged pt to voice any questions or concerns. Pt verbalizes no questions or concerns at this time. Pt was wheeled off of unit with all of belongings. [facility] Telephoneon 12-18-2022 Telephone [id number] Jenni Villegas 1940 F Date Provider Department [facility] 12/18/2022 CHAYO TRAN C VASC LAB [facility] Family History Problem Relation Age of Onset Diabetes Father Heart failure Father Other Other Family Status - Relation Status Age at Father Other [facility] Telephoneon 12-15-2022 Telephone [id number] Jenni Villegas 1940 F Date Provider Department [facility] 12/15/2022 JOHNY ESPINOSA HVC VASC LAB [facility] Family History Problem Relation Age of Onset Diabetes Father Heart failure Father Other Other Family Status - Relation Status Age at Father Other Normal [facility] 36on 12-07-2022 36 Please let patient k now her recent labs show her kidney function is improved from her recent admission, is down to probably her baseline. Her digoxin level is also okay. Continue current medication regimen. Continue with scheduled FARA and follow-up appt with Dr. Chao. Thanks Normal [facility] DIGOXINon 12-06-2022 DIG <0.2 Critically low 0.9-2.0 [facility] Comment on above: Performed By: #### B LDCX2 #### [facility] [address] [address] [address] Lisa Martinez PROF CHEM 8 (BAS METB)on Anion gap [Moles/Vol] 9.6 mmol/L Normal [facility] Comment on above: Performed By: #### T SHRFT4, BMP ####[facility] [address] [address]Dr. Lisa Martinez Calcium [Mass/Vol] 9.0 mg/dL Normal 8.5-10.1 [facility] Comment on above: Performed By: #### T SHRFT4, BMP ####[facility] [address] [address]Dr. iLsa Martinez Chloride [Moles/Vol] 103 mmol/L Normal 98-107 [facility] Comment on above: Performed By: #### T SHRFT4, BMP ####[facility] [address] [address]Dr. Lisa Martinez CO2 [Moles/Vol] 33.4 mmol/L Critically high 21.0-32.0 [facility] Comment on above: Performed By: #### T SHRFT4, BMP ####[facility] [address] [address]Dr. Lisa Martinez Creatinine [Mass/Vol] 1.69 mg/dL Critically high 0.55-1.02 [facility] Comment on above: Performed By: #### T SHRFT4, BMP ####[facility] [address] [id number]. Lisa Martinez EGFR-AF PRYDEINIG 35 mL/min/1.73m2 Critically low >=60 [facility] Comment on above: Performed By: #### T ALFRED4, BMP ####[facility] [address] [address]Dr. Lisa Martinez EGFR-NON AF PRYDEINIG 29 mL/min/1.73m2 Critically low >=60 [facility] Comment on above: Performed By: #### T ALFRED4, BMP ####[facility] [address] [address]Dr. Lisa Martinez Glucose [Mass/Vol] 72 mg/dL Critically low 74-106 [facility] Comment on above: Performed By: #### T ALFRED4, BMP ####[facility] [address] [place], [place] [address]Dr. Lisa Martinez Potassium [Moles/Vol] 4.0 mmol/L Normal 3.5-5.1 [facility] Comment on above: Performed By: #### T ALFRED4, BMP ####[facility] [address] [place], [place] [address]Dr. Lisa Martinez Sodium [Moles/Vol] 142 mmol/L Normal 136-145 [facility] Comment on above: Performed By: #### T ALFRED4, BMP ####[facility] [address] [place], [place] [address]Dr. Lisa Martinez Urea nitrogen [Mass/Vol] 42.0 mg/dL Critically high 7.0-18.0 [facility] Comment on above: Performed By: #### T ALFRED4, BMP ####[facility] [address] [place], [place] [address]Dr. Lisa Martinez Urea nitrogen/Creatinin e [Mass ratio] 24.9 mg/mg Normal [facility] Comment on above: Performed By: #### T ALFRED4, BMP ####[facility] [address] [place], [place] [address]Dr. Lisa Martinez TSH W/ REFLEX TO FT4on 12-06 TSH 2.427 uIU/mL Normal 0.358-3.740 [facility] Comment on above: Performed By: #### T SHRFT4, BMP ####[facility] [address] [place], [place] [address]KqDr. Lisa Martinez BNPon 11-15-2022 Natriuretic peptide B (Bld) [Mass/Vol] 6134.0 pg/mL Critically high <=1,800.0 [facility] Comment on above: Performed By: #### B ASPARAGUS BUNCHER, CMP, MG ####[facility] [address] [place], [place] [address]XeDr. Lisa Martinez CBC AUTO DIFFon 11-15-2022 BASO # 0.0 103/ul Normal 0.0-0.1 [facility] Comment on above: Performed By: #### K U #### [facility] [address] [address] [address] Lisa Martinez Basophils/100 WBC (Bld) 0.6 % Normal 0.2-2.0 [facility] Comment on above: Performed By: #### K U #### [facility] [address] [address] [address] Lisa Martinez EO # 0.2 103/ul Normal 0.0-0.7 [facility] Comment on above: Performed By: #### K U #### [facility] [address] [address] [address] Lisa Martinez Eosinophils/100 WBC (Bld) 2.9 % Normal 0.9-7.0 [facility] Comment on above: Performed By: #### K U #### [facility] [address] [address] [address] Lisa Martinez Erythrocyte distribution width (RBC) [Ratio] 14.9 % Normal 11.0-15.0 [facility] Comment on above: Performed By: #### K U #### [facility] [address] [address] [address] Lisa Martinez Hematocrit (Bld) [Volume fraction] 31.9 % Critically low 36.0-48.0 [facility] Comment on above: Performed By: #### K U #### [facility] [address] [address] [address] Lisa Martinez Hemoglobin (Bld) [Mass/Vol] 9.8 g/dL Critically low 12.0-16.0 [facility] Comment on above: Performed By: #### K U #### [facility] [address] [place] [address] Dr. Lisa Martinez IG # 0.02 10e3/ul Normal 0.00-0.03 [facility] Comment on above: Performed By: #### K U #### [facility] [address] [place] [address] Dr. Lisa Martinez IG % 0.3 % Normal 0.0-0.5 [facility] Comment on above: Performed By: #### K U #### [facility] [address] [place] [address] Dr. Lisa Martinez LYMPH # 0.7 103/ul Critically low 1.2-3.8 [facility] Comment on above: Performed By: #### K U #### [facility] [address] [place] [address] Dr. Lisa Martinez Lymphocytes/100 WBC (Bld) 10.9 % Critically low 20.5-60.0 [facility] Comment on above: Performed By: #### K U #### [facility] [address] [place] [address] Dr. Lisa Martinez MANUAL DIFF REQ NO Normal [facility] Comment on above: Performed By: #### K U #### [facility] [address] [place] [address] Dr. Lisa Martinez MCH (RBC) [Entitic mass] 29.1 pg Normal 26.7-34.0 [facility] Comment on above: Performed By: #### K U #### [facility] [address] [place] [address] Dr. Lisa Martinez MCHC (RBC) [Mass/Vol] 30.7 g/dL Normal 29.9-35.2 [facility] Comment on above: Performed By: #### K U #### [facility] [address] [address] [address] Lisa Martinez MCV (RBC) [Entitic vol] 94.7 fL Normal 81.0-99.0 [facility] Comment on above: Performed By: #### K U #### [facility] [address] [address] [address] Lisa Martinez MONO # 0.8 103/ul Normal 0.3-0.8 [facility] Comment on above: Performed By: #### K U #### [facility] [address] [address] [address] Lisa Martinez Monocytes/100 WBC (Bld) 12.2 % Critically high 1.7-12.0 [facility] Comment on above: Performed By: #### K U #### [facility] [address] [address] [address] Lisa Martinez NEUT # 4.6 103/ul Normal 1.4-6.5 [facility] Comment on above: Performed By: #### K U #### [facility] [address] [address] [address] Lisa Martinez Neutrophils/100 WBC (Bld) 73.1 % Normal 43.0-75.0 [facility] Comment on above: Performed By: #### K U #### [facility] [address] [address] [address] Lisa Martinez Platelet mean volume (Bld) [Entitic vol] 10.2 fL Normal 9.5-13.5 [facility] Comment on above: Performed By: #### K U #### [facility] [address] [address] [address] Lisa Martinez PLT 186 103/ul Normal 150-450 [facility] Comment on above: Performed By: #### K U #### [facility] [address] [address] [address] Lisa Martinez RBC 3.37 106/ul Critically low 4.20-5.40 [facility] Comment on above: Performed By: #### K U #### [facility] [address] [address] [address] Lisa Martinez WBC 6.3 103/ul Normal 4.0-11.0 [facility] Comment on above: Performed By: #### K U #### [facility] [address] [address] [address] Lisa Martinez CHLORIDE URINE RANDOMon 11-06 Chloride, Urine 126 mmol/L Normal Not Estab. [facility] Comment on above: Performed By: #### B LDCX2 #### [facility] [address] [address] [address] Lisa Martinez CULTURE URINEon 11-15-2022 CULTURE [...] F Trimethoprim/Sulfametho xazole <=20 S F Normal [facility] Comment on above: Performed By: #### U RCX #### [facility] [address] [address] [address] Lisa Martinez DIGOXINon 11-15-2022 DIG 0.3 ng/mL Critically low 0.9-2.0 [facility] Comment on above: Performed By: #### B ASPARAGUS BUNCHER, BMP #### [facility] [address] [address] [address] Lisa Martinez MAGNESIUMon 11-15-2022 Magnesium [Mass/Vol] 2.2 mg/dL Normal 1.8-2.4 [facility] Comment on above: Performed By: #### B ASPARAGUS BUNCHER, CMP, MG ####[facility] [address] [place] [address]Dr. Lisa Martinez POINT OF CARE GLUCOSEon 11-06 Glucose [Mass/Vol] 164 mg/dL Critically high 74-106 T [facility] Comment on above: Performed By: #### C BC #### [facility] [address] [place], [place] [address] Dr. Lisa Martinez PROF 14(COMP METB)on 023 Albumin [Mass/Vol] 3.3 g/dL Critically low 3.4-5.0 [facility] Comment on above: Performed By: #### B ASPARAGUS BUNCHER, CMP, MG ####[facility] [address] [place] [address]Dr. Lisa Martinez Albumin/Globulin [Mass ratio] 0.7 {ratio} Normal [facility] Comment on above: Performed By: #### B ASPARAGUS BUNCHER, CMP, MG ####[facility] [address] [place] [address]Dr. Lisa Martinez ALP [Catalytic activity/Vol] 75 U/L Normal 46-116 [facility] Comment on above: Performed By: #### B ASPARAGUS BUNCHER, CMP, MG ####[facility] [address] [place] [address]Dr. Lisa Martinez ALT [Catalytic activity/Vol] 14 U/L Normal 14-59 [facility] Comment on above: Performed By: #### B ASPARAGUS BUNCHER, CMP, MG ####[facility] [address] [place] [id number]. Lisa Martinez Anion gap [Moles/Vol] 11.1 mmol/L Normal [facility] Comment on above: Performed By: #### B ASPARAGUS BUNCHER, CMP, MG ####[facility] [address] [place] [address]Dr. Lisa Martinez AST [Catalytic activity/Vol] 14 U/L Critically low 15-37 [facility] Comment on above: Performed By: #### B ASPARAGUS BUNCHER, CMP, MG ####[facility] [address] [place] [address]Dr. Lisa Martinez Bilirubin [Mass/Vol] 0.9 mg/dL Normal 0.2-1.0 [facility] Comment on above: Performed By: #### B ASPARAGUS BUNCHER, CMP, MG ####[facility] [address] [place] [address]Dr. Lisa Martinez Calcium [Mass/Vol] 9.1 mg/dL Normal 8.5-10.1 [facility] Comment on above: Performed By: #### B ASPARAGUS BUNCHER, CMP, MG ####[facility] [address] [place] [address]Dr. Lisa Martinez Chloride [Moles/Vol] 100 mmol/L Normal 98-107 [facility] Comment on above: Performed By: #### B ASPARAGUS BUNCHER, CMP, MG ####[facility] [address] [place] [address]Dr. Lisa Martinez CO2 [Moles/Vol] 32.6 mmol/L Critically high 21.0-32.0 [facility] Comment on above: Performed By: #### B ASPARAGUS BUNCHER, CMP, MG ####[facility] [address] [place], [place] [address]Dr. Lisa Martinez Creatinine [Mass/Vol] 2.65 mg/dL Critically high 0.55-1.02 [facility] Comment on above: Performed By: #### B ASPARAGUS BUNCHER, CMP, MG ####[facility] [address] [place], [place] [address]Dr. Lisa Juan EGFR-AF PRYDEINIG 21 mL/min/1.73m2 Critically low >=60 [facility] Comment on above: Performed By: #### B ASPARAGUS BUNCHER, CMP, MG ####[facility] [address] [place], [place] [address]Dr. Lisa Juan EGFR-NON AF PRYDEINIG 17 mL/min/1.73m2 Critically low >=60 [facility] Comment on above: Performed By: #### B ASPARAGUS BUNCHER, CMP, MG ####[facility] [address] [place], [place] [address]Dr. Lisa Martinez Globulin (S) [Mass/Vol] 4.7 g/dL Normal [facility] Comment on above: Performed By: #### B ASPARAGUS BUNCHER, CMP, MG ####[facility] [address] [place], [place] [address]Dr. Lisa Martinez Glucose [Mass/Vol] 131 mg/dL Critically high 74-106 T [facility] Comment on above: Performed By: #### B ASPARAGUS BUNCHER, CMP, MG ####[facility] [address] [place] [address]Dr. Lisa Martinez Potassium [Moles/Vol] 3.7 mmol/L Normal 3.5-5.1 [facility] Comment on above: Performed By: #### B ASPARAGUS BUNCHER, CMP, MG ####[facility] [address] [place] [address]Dr. Lisa Martinez Protein [Mass/Vol] 8.0 g/dL Normal 6.4-8.2 [facility] Comment on above: Performed By: #### B ASPARAGUS BUNCHER, CMP, MG ####[facility] [address] [place] [address]Dr. Lisa Martinez Sodium [Moles/Vol] 140 mmol/L Normal 136-145 [facility] Comment on above: Performed By: #### B ASPARAGUS BUNCHER, CMP, MG ####[facility] [address] [place] [address]Dr. Lisa Martinez Urea nitrogen [Mass/Vol] 66.0 mg/dL Critically high 7.0-18.0 [facility] Comment on above: Performed By: #### B ASPARAGUS BUNCHER, CMP, MG ####[facility] [address] [place] [address]Dr. Lisa Martinez Urea nitrogen/Creatinin e [Mass ratio] 24.9 mg/mg Normal [facility] Comment on above: Performed By: #### B ASPARAGUS BUNCHER, CMP, MG ####[facility] [address] [place] [address]Dr. Lisa Martinez UREA NITROGEN, RANDOM URon 0 11-15-2022 Urea Nitrogen, Urine 165 mg/dL Normal Not Estab. [facility] Comment on above: Performed By: #### U NR ####[facility] [address] [place] [address]Dr. Lisa Martinez BNPon 11-14-2022 Natriuretic peptide B (Bld) [Mass/Vol] 8525.0 pg/mL Critically high <=1,800.0 [facility] Comment on above: Performed By: #### B ASPARAGUS BUNCHER ####[facility] [address] [place] [address]Dr. Lisa Martinez CBC AUTO DIFFon 11-14-2022 BASO # 0.0 103/ul Normal 0.0-0.1 [facility] Comment on above: Performed By: #### C VDTBH #### [facility] [address] [place] [address] [address] Lisa Martinez Basophils/100 WBC (Bld) 0.5 % Normal 0.2-2.0 [facility] Comment on above: Performed By: #### C VDTBH #### [facility] [address] [place] [address] Dr. Lisa Martinez EO # 0.2 103/ul Normal 0.0-0.7 [facility] Comment on above: Performed By: #### C VDTBH #### [facility] [address] [place] [address] Dr. Lisa Martinez Eosinophils/100 WBC (Bld) 3.4 % Normal 0.9-7.0 [facility] Comment on above: Performed By: #### C VDTBH #### [facility] [address] [place] [address] Dr. Lisa Martinez Erythrocyte distribution width (RBC) [Ratio] 14.9 % Normal 11.0-15.0 [facility] Comment on above: Performed By: #### C VDTBH #### [facility] [address] [place] [address] Dr. Lisa Martinez Hematocrit (Bld) [Volume fraction] 31.3 % Critically low 36.0-48.0 [facility] Comment on above: Performed By: #### C VDTBH #### [facility] [address] [place] [address] Dr. Lisa Martinez Hemoglobin (Bld) [Mass/Vol] 9.4 g/dL Critically low 12.0-16.0 [facility] Comment on above: Performed By: #### C VDTBH #### [facility] [address] [place] [address] [address] Lisa Martinez IG # 0.01 10e3/ul Normal 0.00-0.03 [facility] Comment on above: Performed By: #### C VDTBH #### [facility] [address] [place] [address] [address] Lisa Martinez IG % 0.2 % Normal 0.0-0.5 [facility] Comment on above: Performed By: #### C VDTBH #### [facility] [address] [place] [address] [address] Lisa Martinez LYMPH # 0.9 103/ul Critically low 1.2-3.8 [facility] Comment on above: Performed By: #### C VDTBH #### [facility] [address] [place] [address] Dr. Lisa Martinez Lymphocytes/100 WBC (Bld) 15.2 % Critically low 20.5-60.0 [facility] Comment on above: Performed By: #### C VDTBH #### [facility] [address] [place] [address] Dr. Lisa Martinez MANUAL DIFF REQ NO Normal [facility] Comment on above: Performed By: #### C VDTBH #### [facility] [address] [place] [address] Dr. Lisa Martinez MCH (RBC) [Entitic mass] 29.0 pg Normal 26.7-34.0 [facility] Comment on above: Performed By: #### C VDTBH #### [facility] [address] [place] [address] Dr. Lisa Martinez MCHC (RBC) [Mass/Vol] 30.0 g/dL Normal 29.9-35.2 [facility] Comment on above: Performed By: #### C VDTBH #### [facility] [address] [place] [address] Dr. Lisa Martinez MCV (RBC) [Entitic vol] 96.6 fL Normal 81.0-99.0 [facility] Comment on above: Performed By: #### C VDTBH #### [facility] [address] [place] [address] [address] Lisa Martinez MONO # 0.6 103/ul Normal 0.3-0.8 [facility] Comment on above: Performed By: #### C VDTBH #### [facility] [address] [place] [address] [address] Lisa Martinez Monocytes/100 WBC (Bld) 10.2 % Normal 1.7-12.0 [facility] Comment on above: Performed By: #### C VDTBH #### [facility] [address] [place] [address] Dr. Lisa Martinez NEUT # 4.0 103/ul Normal 1.4-6.5 [facility] Comment on above: Performed By: #### C VDTBH #### [facility] [address] [place] [address] Dr. Lisa Martinez Neutrophils/100 WBC (Bld) 70.5 % Normal 43.0-75.0 [facility] Comment on above: Performed By: #### C VDTBH #### [facility] [address] [place] [address] Dr. Lisa Martinez Platelet mean volume (Bld) [Entitic vol] 10.3 fL Normal 9.5-13.5 [facility] Comment on above: Performed By: #### C VDTBH #### [facility] [address] [place] [address] Dr. Lisa Martinez PLT 192 103/ul Normal 150-450 [facility] Comment on above: Performed By: #### C VDTBH #### [facility] [address] [place] [address] Dr. Lisa Martinez RBC 3.24 106/ul Critically low 4.20-5.40 [facility] Comment on above: Performed By: #### C VDTBH #### [facility] [address] [place] [address] Dr. Lisa Martinez WBC 5.7 103/ul Normal 4.0-11.0 [facility] Comment on above: Performed By: #### C VDTBH #### [facility] [address] [place], [place] [address] Dr. Lisa Martinez D-DIMERon 11-14-2022 D-DIMER 0.82 mg/L FEU Critically high <=0.59 [facility] Comment on above: Performed By: #### B ASPARAGUS BUNCHER, BMP #### [facility] [address] [place], [place] [address] Dr. Lisa Martinez D-DIMER COMMENTS SEE BELOW Normal [facility] Comment on above: Result Comment: Incr eases [...] and generalized hospitalization. Performed By: #### B ASPARAGUS BUNCHER, BMP #### [facility] [address] [place] [address] [address] Lisa Martinez ECHO LIMITED STUDYon 023 ECHO LIMITED STUDY Patient: URSZULA VILLEGAS Exam Date: 11/14/2022 : 1940 Gender:F Ordering : DR ROBERTO ZIMMERMAN . Admission #: [id number] Family : Order #: [id number] CLICK HERE TO VIEW EXAM ECHOCARDIOGRAM REPORT [...] Marley M.D. on 11/14/2022 at 16:43 Normal [facility] MAGNESIUMon 11-14-2022 Magnesium [Mass/Vol] 2.3 mg/dL Normal 1.8-2.4 [facility] Comment on above: Performed By: #### U RCX #### [facility] [address] [place] [address] Dr. Lisa Martinez NM LUNG VENT_PERFon 11-15-19 [...] of pulmonary embolism. Electronically authenticated by: SADIE GARCIA Date: 2022-11-14 19:11 Normal [facility] OCC BLD IMMUNO SCREENon OCCULT BLOOD Negative Normal NEGATIVE [facility] Comment on above: Performed By: #### B LDCX2 #### [facility] [address] [place] [address] [address] Lisa Martinez POINT OF CARE GLUCOSEon Glucose [Mass/Vol] 155 mg/dL Critically high 74-106 [facility] Comment on above: Performed By: #### P OCGLUC ####[facility] [address] [place] [address]Dr. Lisa Martinez Glucose [Mass/Vol] 148 mg/dL Critically high 74-106 [facility] Comment on above: Performed By: #### B LDCX2 #### [facility] [address] [place] [address] [address] Lisa Martinez Glucose [Mass/Vol] 76 mg/dL Normal 74-106 [facility] Comment on above: Performed By: #### B LDCX2 #### [facility] [address] [place] [address] [address] Lisa Martinez POTASSIUM URINEon 11-14-2022 UR POTASSIUM 21.3 mmol/L Normal [facility] Comment on above: Performed By: #### K U #### [facility] [address] [place] [address] [address] Lisa Martinez PROF 14(COMP METB)on 023 Albumin [Mass/Vol] 3.3 g/dL Critically low 3.4-5.0 [facility] Comment on above: Performed By: #### U RCX #### [facility] [address] [place] [address] [address] Lisa Martinez Albumin/Globulin [Mass ratio] 0.7 {ratio} Normal [facility] Comment on above: Performed By: #### U RCX #### [facility] [address] [place] [address] [address] Lisa Martinez ALP [Catalytic activity/Vol] 72 U/L Normal 46-116 [facility] Comment on above: Performed By: #### U RCX #### [facility] [address] [place] [address] [address] Lisa Martinez ALT [Catalytic activity/Vol] 16 U/L Normal 14-59 [facility] Comment on above: Performed By: #### U RCX #### [facility] [address] [place] [address] [address] Lisa Martinez Anion gap [Moles/Vol] 13.0 mmol/L Normal [facility] Comment on above: Performed By: #### U RCX #### [facility] [address] [place] [address] [address] Lisa Martinez AST [Catalytic activity/Vol] 13 U/L Critically low 15-37 [facility] Comment on above: Performed By: #### U RCX #### [facility] [address] [place] [address] [address] Lisa Martinez Bilirubin [Mass/Vol] 0.8 mg/dL Normal 0.2-1.0 [facility] Comment on above: Performed By: #### U RCX #### [facility] [address] [place] [address] [address] Lisa Martinez Calcium [Mass/Vol] 9.0 mg/dL Normal 8.5-10.1 [facility] Comment on above: Performed By: #### U RCX #### [facility] [address] [place] [address] [address] Lisa Martinez Chloride [Moles/Vol] 100 mmol/L Normal 98-107 [facility] Comment on above: Performed By: #### U RCX #### [facility] [address] [place] [address] [address] Lisa Martinez CO2 [Moles/Vol] 30.0 mmol/L Normal 21.0-32.0 [facility] Comment on above: Performed By: #### U RCX #### [facility] [address] [place] [address] [address] Lisa Martinez Creatinine [Mass/Vol] 2.79 mg/dL Critically high 0.55-1.02 [facility] Comment on above: Performed By: #### U RCX #### [facility] [address] [place] [address] [address] Lisa Martinez EGFR-AF PRYDEINIG 20 mL/min/1.73m2 Critically low >=60 [facility] Comment on above: Performed By: #### U RCX #### [facility] [address] [place] [address] [address] Lisa Martinez EGFR-NON AF PRYDEINIG 16 mL/min/1.73m2 Critically low >=60 [facility] Comment on above: Performed By: #### U RCX #### [facility] [address] [place] [address] [address] Lisa Martinez Globulin (S) [Mass/Vol] 4.6 g/dL Normal [facility] Comment on above: Performed By: #### U RCX #### [facility] [address] [place] [address] [address] Lisa Martinez Glucose [Mass/Vol] 153 mg/dL Critically high 74-106 [facility] Comment on above: Performed By: #### U RCX #### [facility] [address] [place] [address] [address] Lisa Martinez Potassium [Moles/Vol] 4.0 mmol/L Normal 3.5-5.1 [facility] Comment on above: Performed By: #### U RCX #### [facility] [address] [place] [address] [address] Lisa Martinez Protein [Mass/Vol] 7.9 g/dL Normal 6.4-8.2 [facility] Comment on above: Performed By: #### U RCX #### [facility] [address] [place] [address] [address] Lsia Martinez Sodium [Moles/Vol] 139 mmol/L Normal 136-145 [facility] Comment on above: Performed By: #### U RCX #### [facility] [address] [place] [address] [address] Lisa Martinez Urea nitrogen [Mass/Vol] 67.0 mg/dL Critically high 7.0-18.0 [facility] Comment on above: Performed By: #### U RCX #### [facility] [address] [place] [address] [address] Lisa Martinez Urea nitrogen/Creatinin e [Mass ratio] 24.0 mg/mg Normal [facility] Comment on above: Performed By: #### U RCX #### [facility] [address] [place] [address] Dr. Lisa Martinez SODIUM RANDOM URINEon 2022 Sodium (U) [Moles/Vol] 122 mmol/L Critically high 30-90 [facility] Comment on above: Performed By: #### B ASPARAGUS BUNCHER, BMP #### [facility] [address] [place] [address] Dr. Lisa Martinez T3, TOTAL (TRIIODOTHYRONINE) on 11-14-2022 T3, TOTAL 84 ng/dL Normal 71-180 [facility] Comment on above: Performed By: #### U RCX #### [facility] [address] [place] [address] Dr. Lisa Martinez BNPon 11-13-2022 Natriuretic peptide B (Bld) [Mass/Vol] 14390.0 pg/mL Critically high <=1,800.0 [facility] Comment on above: Performed By: #### B MP, HSTROPN, BNP ####[facility] [address] [place] [id number]. Lisa Martinez CARDIAC DONY 3-6on 3 CK [Catalytic activity/Vol] 60 U/L Normal 26-192 [facility] Comment on above: Performed By: #### C MREP ####[facility] [address] [place] [id number]. Lisa Martinez CK.MB [Mass/Vol] 0.96 ng/mL Normal <=3.60 [facility] Comment on above: Performed By: #### C MREP ####[facility] [address] [place] [id number]. Lisa Martinez HSTROP 16.3 pg/mL Normal 4.0-51.3 [facility] Comment on above: Result Comment: CUT- OFF POINTS HAVE BEEN ESTABLISHED BASED ON THE FOURTH UNIVERSAL DEFINITIONS OF MYOCARDIAL INFARCTION. THE UPPER REFERENCE LIMIT (URL) OF TROPONIN, DEFINED THE 99TH PERCENTILE OF cTnI DISTRIBUTION IN A REFERENCE POPULATION, HAS BEEN CONFIRMED THE DECISION THRESHOLD FOR PR DIAGNOSIS. Performed By: #### C MREP ####[facility] [address] [place] [id number]. Lisa Martinez CK [Catalytic activity/Vol] 60 U/L Normal 26-192 [facility] Comment on above: Performed By: #### C BC #### [facility] [address] [place] [address] [address] Lisa Martinez CK.MB [Mass/Vol] 0.94 ng/mL Normal <=3.60 [facility] Comment on above: Performed By: #### C BC #### [facility] [address] [place] [address] [address] Lisa Martinez HSTROP 15.1 pg/mL Normal 4.0-51.3 [facility] Comment on above: Result Comment: CUT- OFF POINTS HAVE BEEN ESTABLISHED BASED ON THE FOURTH UNIVERSAL DEFINITIONS OF MYOCARDIAL INFARCTION. THE UPPER REFERENCE LIMIT (URL) OF TROPONIN, DEFINED THE 99TH PERCENTILE OF cTnI DISTRIBUTION IN A REFERENCE POPULATION, HAS BEEN CONFIRMED THE DECISION THRESHOLD FOR PR DIAGNOSIS. Performed By: #### C BC #### [facility] [address] [address] [address] Lisa Martinez CBC AUTO DIFFon 11-13-2022 BASO # 0.1 103/ul Normal 0.0-0.1 [facility] Comment on above: Performed By: #### C BC #### [facility] [address] [place] [address] [address] Lisa Martinez Basophils/100 WBC (Bld) 0.6 % Normal 0.2-2.0 [facility] Comment on above: Performed By: #### C BC #### [facility] [address] [place] [address] Dr. Lisa Martinez EO # 0.2 103/ul Normal 0.0-0.7 [facility] Comment on above: Performed By: #### C BC #### [facility] [address] [place] [address] Dr. Lisa Martinez Eosinophils/100 WBC (Bld) 1.8 % Normal 0.9-7.0 [facility] Comment on above: Performed By: #### C BC #### [facility] [address] [place] [address] Dr. Lisa Martinez Erythrocyte distribution width (RBC) [Ratio] 15.0 % Normal 11.0-15.0 [facility] Comment on above: Performed By: #### C BC #### [facility] [address] [place] [address] Dr. Lisa Martinez Hematocrit (Bld) [Volume fraction] 32.9 % Critically low 36.0-48.0 [facility] Comment on above: Performed By: #### C BC #### [facility] [address] [place] [address] Dr. Lisa Martinez Hemoglobin (Bld) [Mass/Vol] 9.8 g/dL Critically low 12.0-16.0 [facility] Comment on above: Performed By: #### C BC #### [facility] [address] [place] [address] Dr. Lisa Martinez IG # 0.02 10e3/ul Normal 0.00-0.03 [facility] Comment on above: Performed By: #### C BC #### [facility] [address] [place] [address] Dr. Lisa Martinez IG % 0.2 % Normal 0.0-0.5 [facility] Comment on above: Performed By: #### C BC #### [facility] [address] [place] [address] Dr. Lisa Martinez LYMPH # 0.7 103/ul Critically low 1.2-3.8 [facility] Comment on above: Performed By: #### C BC #### [facility] [address] [place] [address] [address] Lisa Martinez Lymphocytes/100 WBC (Bld) 7.8 % Critically low 20.5-60.0 [facility] Comment on above: Performed By: #### C BC #### [facility] [address] [place] [address] [address] Lisa Martinez MANUAL DIFF REQ NO Normal [facility] Comment on above: Performed By: #### C BC #### [facility] [address] [address] [address] Lisa Martinez MCH (RBC) [Entitic mass] 29.4 pg Normal 26.7-34.0 [facility] Comment on above: Performed By: #### C BC #### [facility] [address] [place] [address] Dr. Lisa Martinez MCHC (RBC) [Mass/Vol] 29.8 g/dL Critically low 29.9-35.2 [facility] Comment on above: Performed By: #### C BC #### [facility] [address] [place] [address] Dr. Lisa Martinez MCV (RBC) [Entitic vol] 98.8 fL Normal 81.0-99.0 [facility] Comment on above: Performed By: #### C BC #### [facility] [address] [place] [address] Dr. Lisa Martinez MONO # 0.7 103/ul Normal 0.3-0.8 [facility] Comment on above: Performed By: #### C BC #### [facility] [address] [place] [address] Dr. Lisa Martinez Monocytes/100 WBC (Bld) 7.6 % Normal 1.7-12.0 [facility] Comment on above: Performed By: #### C BC #### [facility] [address] [place] [address] Dr. Lisa Martinez NEUT # 7.0 103/ul Critically high 1.4-6.5 [facility] Comment on above: Performed By: #### C BC #### [facility] [address] [place] [address] Dr. Lisa Martinez Neutrophils/100 WBC (Bld) 82.0 % Critically high 43.0-75.0 [facility] Comment on above: Performed By: #### C BC #### [facility] [address] [address] [address] Lisa Martinez Platelet mean volume (Bld) [Entitic vol] 10.6 fL Normal 9.5-13.5 [facility] Comment on above: Performed By: #### C BC #### [facility] [address] [address] [address] Lisa Martinez PLT 209 103/ul Normal 150-450 [facility] Comment on above: Performed By: #### C BC #### [facility] [address] [address] [address] Lisa Martinez RBC 3.33 106/ul Critically low 4.20-5.40 [facility] Comment on above: Performed By: #### C BC #### [facility] [address] [address] [address] Lisa Martinez WBC 8.6 103/ul Normal 4.0-11.0 [facility] Comment on above: Performed By: #### C BC #### [facility] [address] [address] [address] Lisa Martinez LACTATE/LACTIC ACIDon 2022 Lactate [Moles/Vol] 3.4 mmol/L Critically high 0.4-2.0 [facility] Comment on above: Performed By: #### L ACT ####[facility] [address] [address]Dr. Lisa Martinez MAGNESIUMon 11-13-2022 Magnesium [Mass/Vol] 2.6 mg/dL Critically high 1.8-2.4 [facility] Comment on above: Performed By: #### B ASPARAGUS BUNCHER, BMP #### [facility] [address] [address] [address] Lisa Martinez PROF CHEM 8 (BAS METB)on Anion gap [Moles/Vol] 15.7 mmol/L Normal [facility] Comment on above: Performed By: #### C BC #### [facility] [address] [address] [address] Lisa Martinez Calcium [Mass/Vol] 9.1 mg/dL Normal 8.5-10.1 [facility] Comment on above: Performed By: #### C BC #### [facility] [address] [address] [address] Lisa Martinez Chloride [Moles/Vol] 103 mmol/L Normal 98-107 [facility] Comment on above: Performed By: #### C BC #### [facility] [address] [address] [address] Lisa Martinez CO2 [Moles/Vol] 27.2 mmol/L Normal 21.0-32.0 [facility] Comment on above: Performed By: #### C BC #### [facility] [address] [address] [address] Lisa Martinez Creatinine [Mass/Vol] 2.91 mg/dL Critically high 0.55-1.02 [facility] Comment on above: Performed By: #### C BC #### [facility] [address] [address] [address] Lisa Martinez EGFR-AF PRYDEINIG 19 mL/min/1.73m2 Critically low >=60 [facility] Comment on above: Performed By: #### C BC #### [facility] [address] [address] [address] Lisa Martinez EGFR-NON AF PRYDEINIG 15 mL/min/1.73m2 Critically low >=60 [facility] Comment on above: Performed By: #### C BC #### [facility] [address] [address] [address] Lisa Martinez Glucose [Mass/Vol] 172 mg/dL Critically high 74-106 [facility] Comment on above: Performed By: #### C BC #### [facility] [address] [address] [address] Lisa Martinez Potassium [Moles/Vol] 4.9 mmol/L Normal 3.5-5.1 [facility] Comment on above: Performed By: #### C BC #### [facility] [address] [address] [address] Lisa Martinez Sodium [Moles/Vol] 141 mmol/L Normal 136-145 [facility] Comment on above: Performed By: #### C BC #### [facility] [address] [address] [address] Lisa Martinez Urea nitrogen [Mass/Vol] 64.0 mg/dL Critically high 7.0-18.0 [facility] Comment on above: Performed By: #### C BC #### [facility] [address] [address] [address] Lisa Martinez Urea nitrogen/Creatinin e [Mass ratio] 22.0 mg/mg Normal [facility] Comment on above: Performed By: #### C BC #### [facility] [address] [address] [address] Lisa Martinez Anion gap [Moles/Vol] 17.4 mmol/L Normal [facility] Comment on above: Performed By: #### B MP, HSTROPN, BNP ####[facility] [address] [address]Dr. Lisa Martinez Calcium [Mass/Vol] 9.1 mg/dL Normal 8.5-10.1 [facility] Comment on above: Performed By: #### B MP, HSTROPN, BNP ####[facility] [address] [address]DrIngrid Martinez Chloride [Moles/Vol] 104 mmol/L Normal 98-107 [facility] Comment on above: Performed By: #### B MP, HSTROPN, BNP ####[facility] [address] [address]DrIngrid Martinez CO2 [Moles/Vol] 26.9 mmol/L Normal 21.0-32.0 [facility] Comment on above: Performed By: #### B MP, HSTROPN, BNP ####[facility] [address] [address]DrIngrid Martinez Creatinine [Mass/Vol] 3.12 mg/dL Critically high 0.55-1.02 [facility] Comment on above: Performed By: #### B MP, HSTROPN, BNP ####[facility] [address] [address]Dr. Lisa Martinez EGFR-AF PRYDEINIG 17 mL/min/1.73m2 Critically low >=60 [facility] Comment on above: Performed By: #### B MP, HSTROPN, BNP ####[facility] [address] [address]Dr. Lisa Martinez EGFR-NON AF PRYDEINIG 14 mL/min/1.73m2 Critically low >=60 [facility] Comment on above: Performed By: #### B MP, HSTROPN, BNP ####[facility] [address] [place], [place] [address]Dr. Lisa Martinez Glucose [Mass/Vol] 131 mg/dL Critically high 74-106 [facility] Comment on above: Performed By: #### B MP, HSTROPN, BNP ####[facility] [address] [place], [place] [address]Dr. Lisa Martinez Potassium [Moles/Vol] 5.3 mmol/L Critically high 3.5-5.1 [facility] Comment on above: Performed By: #### B MP, HSTROPN, BNP ####[facility] [address] [address]Dr. Lisa Martinez Sodium [Moles/Vol] 143 mmol/L Normal 136-145 [facility] Comment on above: Performed By: #### B MP, HSTROPN, BNP ####[facility] [address] [address]Dr. Lisa Martinez Urea nitrogen [Mass/Vol] 59.0 mg/dL Critically high 7.0-18.0 [facility] Comment on above: Performed By: #### B MP, HSTROPN, BNP ####[facility] [address] [address]Dr. Lisa Martinez Urea nitrogen/Creatinin e [Mass ratio] 18.9 mg/mg Normal [facility] Comment on above: Performed By: #### B MP, HSTROPN, BNP ####[facility] [address] [place], [place] [address]YjDr. Lisa Martinez SYMPTOMATIC COVID-19 ANTIGEN on 11-13-2022 EUA Statement SEE BELOW Normal [facility] Comment on above: Result Comment: This [...] sooner. Performed By: #### C VDTBH #### [facility] [address] [address] [address] Lisa Martinez SARS-CoV-2 (COVID-19) RNA RCAIEL+probe Ql (Unsp spec) Negative Normal NEGATIVE [facility] Comment on above: Performed By: #### C VDTBH #### [facility] [address] [address] [address] Lisa Martinez T4on 11-13-2022 T4 [Mass/Vol] 6.70 ug/dL Normal 4.80-13.90 [facility] Comment on above: Performed By: #### B ASPARAGUS BUNCHER, BMP #### [facility] [address] [place], [place] [address] Dr. Lisa Martinez TROPONIN, HIGH SENSITIVITYon 11-13-2022 HSTROP 17.9 pg/mL Normal 4.0-51.3 [facility] Comment on above: Result Comment: CUT- OFF POINTS HAVE BEEN ESTABLISHED BASED ON THE FOURTH UNIVERSAL DEFINITIONS OF MYOCARDIAL INFARCTION. THE UPPER REFERENCE LIMIT (URL) OF TROPONIN, DEFINED THE 99TH PERCENTILE OF cTnI DISTRIBUTION IN A REFERENCE POPULATION, HAS BEEN CONFIRMED THE DECISION THRESHOLD FOR PR DIAGNOSIS. Performed By: #### B MP, HSTROPN, BNP ####[facility] [address] [address]Dr. Lisa Martinez TSHon 11-13-2022 TSH 5.233 uIU/mL Critically high 0.358-3.740 [facility] Comment on above: Performed By: #### B ASPARAGUS BUNCHER, BMP #### [facility] [address] [place] [address] Dr. Lisa Martinez UA RANDOM W/MICROSCOPICon BACTERIA SMALL Abnormal NONE SEEN [facility] Comment on above: Performed By: #### K U #### [facility] [address] [place] [address] Dr. Lisa Martinez Bilirubin Ql (U) Negative Normal NEGATIVE [facility] Comment on above: Performed By: #### K U #### [facility] [address] [place] [address] Dr. Lisa Martinez CAST SEEN Abnormal NONE SEEN [facility] Comment on above: Performed By: #### K U #### [facility] [address] [place] [address] Dr. Lisa Martinez Clarity (U) CLEAR Normal CLEAR [facility] Comment on above: Performed By: #### K U #### [facility] [address] [place] [address] Dr. Lisa Martinez Color (U) LT. YELLOW Normal YELLOW [facility] Comment on above: Performed By: #### K U #### [facility] [address] [place] [address] Dr. Lisa Martinez Crystals LM Nom (Urine sed) NONE SEEN Normal NONE SEEN [facility] Comment on above: Performed By: #### K U #### [facility] [address] [place] [address] Dr. Lisa Martinez Epithelial cells LM Ql (Urine sed) FEW Abnormal NONE SEEN /RARE [facility] Comment on above: Performed By: #### K U #### [facility] [address] [place] [address] Dr. Lisa Martinez Glucose Ql (U) Negative Normal NEGATIVE [facility] Comment on above: Performed By: #### K U #### [facility] [address] [address] [address] Lisa Martinez Hemoglobin Ql (U) Negative Normal NEGATIVE [facility] Comment on above: Performed By: #### K U #### [facility] [address] [address] [address] Lisa Martinez HYALINE CAST FEW Normal [facility] Comment on above: Performed By: #### K U #### [facility] [address] [address] [address] Lisa Martinez Ketones Ql (U) Negative Normal NEGATIVE [facility] Comment on above: Performed By: #### K U #### [facility] [address] [place] [address] Dr. Lisa Martinez LEUKOCYTES Negative Normal NEGATIVE [facility] Comment on above: Performed By: #### K U #### [facility] [address] [address] [address] Lisa Martinez MUCOUS NONE SEEN Normal NONE SEEN [facility] Comment on above: Performed By: #### K U #### [facility] [address] [place] [address] Dr. Lisa Martinez Nitrite Ql (U) Negative Normal NEGATIVE [facility] Comment on above: Performed By: #### K U #### [facility] [address] [address] [address] Lisa Martinez pH (U) 5.5 [pH] Normal 5-9 [facility] Comment on above: Performed By: #### K U #### [facility] [address] [place] [address] Dr. Lisa Martinez RBC NONE SEEN Abnormal 0-2 [facility] Comment on above: Performed By: #### K U #### [facility] [address] [place] [address] Dr. Lisa Martinez SPEC GRAVITY 1.010 Normal 1.005-<=1.025 [facility] Comment on above: Performed By: #### K U #### [facility] [address] [address] [address] Lisa Martinez UA PROTEIN Negative Normal NEGATIVE/ TRACE [facility] Comment on above: Performed By: #### K U #### [facility] [address] [address] [address] Lisa Martinez Urobilinogen Qn (U) 0.2 {Mike'U}/dL Normal 0.2 - 1.0 [facility] Comment on above: Performed By: #### K U #### [facility] [address] [address] [address] Lisa Martinez WBC NONE SEEN Normal NONE SEEN [facility] Comment on above: Performed By: #### K U #### [facility] [address] [address] [address] Lisa Martinez US KIDNEYS BLADDERon 023 [...] by: Gela ARANDA Date: 2022-11-13 16:01 Normal [facility] XR CHEST 1 Von 11-13-2022 XR CHEST [...] by: MEENA WOOTEN Date: 2022-11-13 12:20 Normal [facility] PROF CHEM 8 (BAS METB)on Anion gap [Moles/Vol] 13.5 mmol/L Normal [facility] Comment on above: Performed By: #### B MP ####[facility] [address] [address]Dr. Lisa Martinez Calcium [Mass/Vol] 9.2 mg/dL Normal 8.5-10.1 [facility] Comment on above: Performed By: #### B MP ####[facility] [address] [address]Dr. Lisa Martinez Chloride [Moles/Vol] 108 mmol/L Critically high 98-107 [facility] Comment on above: Performed By: #### B MP ####[facility] [address] [address]Dr. Lisa Martinez CO2 [Moles/Vol] 25.6 mmol/L Normal 21.0-32.0 [facility] Comment on above: Performed By: #### B MP ####[facility] [address] [address]Dr. Lisa Martinez Creatinine [Mass/Vol] 1.53 mg/dL Critically high 0.55-1.02 [facility] Comment on above: Performed By: #### B MP ####[facility] [address] [address]Dr. Lisa Martinez EGFR-AF PRYDEINIG 39 mL/min/1.73m2 Critically low >=60 [facility] Comment on above: Performed By: #### B MP ####[facility] [address] [address]Dr. Lisa Martinez EGFR-NON AF PRYDEINIG 32 mL/min/1.73m2 Critically low >=60 [facility] Comment on above: Performed By: #### B MP ####[facility] [address] [address]Dr. Lisa Martinez Glucose [Mass/Vol] 69 mg/dL Critically low 74-106 [facility] Comment on above: Performed By: #### B MP ####[facility] [address] [address]Dr. Lisa Martinez Potassium [Moles/Vol] 5.1 mmol/L Normal 3.5-5.1 [facility] Comment on above: Performed By: #### B MP ####[facility] [address] [address]Dr. Lisa Martinez Sodium [Moles/Vol] 142 mmol/L Normal 136-145 [facility] Comment on above: Performed By: #### B MP ####[facility] [address] [address]Dr. Lisa Martinez Urea nitrogen [Mass/Vol] 32.0 mg/dL Critically high 7.0-18.0 [facility] Comment on above: Performed By: #### B MP ####[facility] [address] [place], [place] [address]Dr. Lisa Martinez Urea nitrogen/Creatinin e [Mass ratio] 20.9 mg/mg Normal [facility] Comment on above: Performed By: #### B MP ####[facility] [address] [place], [place] [address]Dr. Lisa Martinez BNPon 10-08-2022 Natriuretic peptide B (Bld) [Mass/Vol] 3489.0 pg/mL Critically high <=1,800.0 [facility] Comment on above: Performed By: #### B ASPARAGUS BUNCHER, BMP #### [facility] [address] [place] [address] Dr. Lisa Martinez CBC AUTO DIFFon 10-08-2022 BASO # 0.0 103/ul Normal 0.0-0.1 [facility] Comment on above: Performed By: #### B ASPARAGUS BUNCHER, BMP #### [facility] [address] [place] [address] Dr. Lisa Martinez Basophils/100 WBC (Bld) 0.6 % Normal 0.2-2.0 [facility] Comment on above: Performed By: #### B ASPARAGUS BUNCHER, BMP #### [facility] [address] [place] [address] Dr. Lisa Martinez EO # 0.2 103/ul Normal 0.0-0.7 [facility] Comment on above: Performed By: #### B ASPARAGUS BUNCHER, BMP #### [facility] [address] [place] [address] Dr. Lisa Martinez Eosinophils/100 WBC (Bld) 3.5 % Normal 0.9-7.0 [facility] Comment on above: Performed By: #### B ASPARAGUS BUNCHER, BMP #### [facility] [address] [place] [address] Dr. Lisa Martinez Erythrocyte distribution width (RBC) [Ratio] 15.5 % Critically high 11.0-15.0 [facility] Comment on above: Performed By: #### B ASPARAGUS BUNCHER, BMP #### [facility] [address] [place] [address] Dr. Lisa Martinez Hematocrit (Bld) [Volume fraction] 31.8 % Critically low 36.0-48.0 [facility] Comment on above: Performed By: #### B ASPARAGUS BUNCHER, BMP #### [facility] [address] [place] [address] Dr. Lisa Martinez Hemoglobin (Bld) [Mass/Vol] 9.8 g/dL Critically low 12.0-16.0 [facility] Comment on above: Performed By: #### B ASPARAGUS BUNCHER, BMP #### [facility] [address] [place] [address] Dr. Lisa Martinez IG # 0.02 10e3/ul Normal 0.00-0.03 [facility] Comment on above: Performed By: #### B ASPARAGUS BUNCHER, BMP #### [facility] [address] [place] [address] Dr. Lisa Martinez IG % 0.3 % Normal 0.0-0.5 [facility] Comment on above: Performed By: #### B ASPARAGUS BUNCHER, BMP #### [facility] [address] [place] [address] Dr. Lisa Martinez LYMPH # 0.9 103/ul Critically low 1.2-3.8 [facility] Comment on above: Performed By: #### B ASPARAGUS BUNCHER, BMP #### [facility] [address] [place] [address] Dr. Lisa Martinez Lymphocytes/100 WBC (Bld) 14.0 % Critically low 20.5-60.0 [facility] Comment on above: Performed By: #### B ASPARAGUS BUNCHER, BMP #### [facility] [address] [place] [address] Dr. Lisa Martinez MANUAL DIFF REQ NO Normal [facility] Comment on above: Performed By: #### B ASPARAGUS BUNCHER, BMP #### [facility] [address] [place] [address] Dr. Lisa Martinez MCH (RBC) [Entitic mass] 29.9 pg Normal 26.7-34.0 [facility] Comment on above: Performed By: #### B ASPARAGUS BUNCHER, BMP #### [facility] [address] [place] [address] Dr. Lisa Martinez MCHC (RBC) [Mass/Vol] 30.8 g/dL Normal 29.9-35.2 [facility] Comment on above: Performed By: #### B ASPARAGUS BUNCHER, BMP #### [facility] [address] [place] [address] Dr. Lisa Martinez MCV (RBC) [Entitic vol] 97.0 fL Normal 81.0-99.0 [facility] Comment on above: Performed By: #### B ASPARAGUS BUNCHER, BMP #### [facility] [address] [place] [address] Dr. Lisa Martinez MONO # 0.8 103/ul Normal 0.3-0.8 [facility] Comment on above: Performed By: #### B ASPARAGUS BUNCHER, BMP #### [facility] [address] [place] [address] Dr. Lisa Martinez Monocytes/100 WBC (Bld) 11.9 % Normal 1.7-12.0 [facility] Comment on above: Performed By: #### B ASPARAGUS BUNCHER, BMP #### [facility] [address] [place], [place] [address] Dr. Lisa Martinez NEUT # 4.4 103/ul Normal 1.4-6.5 [facility] Comment on above: Performed By: #### B ASPARAGUS BUNCHER, BMP #### [facility] [address] [address] [address] Lisa Martinez Neutrophils/100 WBC (Bld) 69.7 % Normal 43.0-75.0 [facility] Comment on above: Performed By: #### B ASPARAGUS BUNCHER, BMP #### [facility] [address] [address] [address] Lisa Martinez Platelet mean volume (Bld) [Entitic vol] 10.3 fL Normal 9.5-13.5 [facility] Comment on above: Performed By: #### B ASPARAGUS BUNCHER, BMP #### [facility] [address] [address] [address] Lisa Martinez PLT 223 103/ul Normal 150-450 [facility] Comment on above: Performed By: #### B ASPARAGUS BUNCHER, BMP #### [facility] [address] [address] [address] Lisa Martinez RBC 3.28 106/ul Critically low 4.20-5.40 [facility] Comment on above: Performed By: #### B ASPARAGUS BUNCHER, BMP #### [facility] [address] [address] [address] Lisa Martinez WBC 6.3 103/ul Normal 4.0-11.0 [facility] Comment on above: Performed By: #### B ASPARAGUS BUNCHER, BMP #### [facility] [address] [place], [place] [address] Dr. Lisa Martinez DIGOXINon 10-08-2022 DIG 1.6 ng/mL Normal 0.9-2.0 [facility] Comment on above: Performed By: #### D IG ####[facility] [address] [place], [place] [address]ZqDr. Lisa Martinez POINT OF CARE GLUCOSEon Glucose [Mass/Vol] 226 mg/dL Critically high 74-106 [facility] on above: Performed By: #### P OCGLUC ####[facility] [address] [address]Dr. Lisa Martinez Glucose [Mass/Vol] 107 mg/dL Critically high 74-106 [facility] Comment on above: Performed By: #### B LDCX2 #### [facility] [address] [address] [address] Lisa Martinez PROF CHEM 8 (BAS METB)on Anion gap [Moles/Vol] 11.7 mmol/L Normal [facility] Comment on above: Performed By: #### B ASPARAGUS BUNCHER, BMP #### [facility] [address] [place] [address] Dr. Lisa Martinez Calcium [Mass/Vol] 9.2 mg/dL Normal 8.5-10.1 [facility] Comment on above: Performed By: #### B ASPARAGUS BUNCHER, BMP #### [facility] [address] [address] [address] Lisa Martinez Chloride [Moles/Vol] 102 mmol/L Normal 98-107 [facility] Comment on above: Performed By: #### B ASPARAGUS BUNCHER, BMP #### [facility] [facility] [address] [address] [address] Lisa Martinez CO2 [Moles/Vol] 29.3 mmol/L Normal 21.0-32.0 [facility] Comment on above: Performed By: #### B ASPARAGUS BUNCHER, BMP #### [facility] [address] [place] [address] Dr. Lisa Martinez Creatinine [Mass/Vol] 1.27 mg/dL Critically high 0.55-1.02 [facility] Comment on above: Performed By: #### B ASPARAGUS BUNCHER, BMP #### [facility] [address] [place] [address] Dr. Lisa Martinez EGFR-AF PRYDEINIG 49 mL/min/1.73m2 Critically low >=60 [facility] Comment on above: Performed By: #### B ASPARAGUS BUNCHER, BMP #### [facility] [address] [place] [address] Dr. Lisa Martinez EGFR-NON AF PRYDEINIG 40 mL/min/1.73m2 Critically low >=60 [facility] Comment on above: Performed By: #### B ASPARAGUS BUNCHER, BMP #### [facility] [address] [address] [address] Lisa Martinez Glucose [Mass/Vol] 98 mg/dL Normal 74-106 [facility] Comment on above: Performed By: #### B ASPARAGUS BUNCHER, BMP #### [facility] [address] [address] [address] Lisa Martinez Potassium [Moles/Vol] 4.0 mmol/L Normal 3.5-5.1 [facility] Comment on above: Performed By: #### B ASPARAGUS BUNCHER, BMP #### [facility] [address] [place] [address] Dr. Lisa Martinez Sodium [Moles/Vol] 139 mmol/L Normal 136-145 [facility] Comment on above: Performed By: #### B ASPARAGUS BUNCHER, BMP #### [facility] [address] [place] [address] Dr. Lisa Martinez Urea nitrogen [Mass/Vol] 26.0 mg/dL Critically high 7.0-18.0 [facility] Comment on above: Performed By: #### B ASPARAGUS BUNCHER, BMP #### [facility] [address] [place] [address] Dr. Lisa Martinez Urea nitrogen/Creatinin e [Mass ratio] 20.5 mg/mg Normal [facility] Comment on above: Performed By: #### B ASPARAGUS BUNCHER, BMP #### [facility] [address] [place] [address] Dr. Lisa Martinez BNPon 10-07-2022 Natriuretic peptide B (Bld) [Mass/Vol] 6039.0 pg/mL Critically high <=1,800.0 [facility] Comment on above: Performed By: #### B ASPARAGUS BUNCHER ####[facility] [address] [address]Dr. Lisa Martinez CBC AUTO DIFFon 10-07-2022 BASO # 0.1 103/ul Normal 0.0-0.1 [facility] Comment on above: Performed By: #### K U #### [facility] [address] [address] [address] Lisa Martinez Basophils/100 WBC (Bld) 0.7 % Normal 0.2-2.0 [facility] Comment on above: Performed By: #### K U #### [facility] [address] [address] [address] Lisa Martinez EO # 0.3 103/ul Normal 0.0-0.7 [facility] Comment on above: Performed By: #### K U #### [facility] [address] [address] [address] Lisa Martinez Eosinophils/100 WBC (Bld) 4.0 % Normal 0.9-7.0 [facility] Comment on above: Performed By: #### K U #### [facility] [address] [place] [address] Dr. Lisa Martinez Erythrocyte distribution width (RBC) [Ratio] 15.6 % Critically high 11.0-15.0 [facility] Comment on above: Performed By: #### K U #### [facility] [address] [place] [address] Dr. Lisa Martinez Hematocrit (Bld) [Volume fraction] 34.0 % Critically low 36.0-48.0 [facility] Comment on above: Performed By: #### K U #### [facility] [address] [place] [address] Dr. Lisa Martinez Hemoglobin (Bld) [Mass/Vol] 10.4 g/dL Critically low 12.0-16.0 [facility] Comment on above: Performed By: #### K U #### [facility] [address] [place] [address] Dr. Lisa Martinez IG # 0.02 10e3/ul Normal 0.00-0.03 [facility] Comment on above: Performed By: #### K U #### [facility] [address] [place] [address] Dr. Lisa Martinez IG % 0.3 % Normal 0.0-0.5 [facility] Comment on above: Performed By: #### K U #### [facility] [address] [address] [address] Lisa Martinez LYMPH # 1.0 103/ul Critically low 1.2-3.8 [facility] Comment on above: Performed By: #### K U #### [facility] [address] [place] [address] Dr. Lisa Martinez Lymphocytes/100 WBC (Bld) 14.9 % Critically low 20.5-60.0 [facility] Comment on above: Performed By: #### K U #### [facility] [address] [place] [address] Dr. Lisa Martinez MANUAL DIFF REQ NO Normal [facility] Comment on above: Performed By: #### K U #### [facility] [address] [place] [address] Dr. Lisa Martinez MCH (RBC) [Entitic mass] 29.8 pg Normal 26.7-34.0 [facility] Comment on above: Performed By: #### K U #### [facility] [address] [place] [address] Dr. Lisa Martinez MCHC (RBC) [Mass/Vol] 30.6 g/dL Normal 29.9-35.2 [facility] Comment on above: Performed By: #### K U #### [facility] [address] [place] [address] Dr. Lisa Martinez MCV (RBC) [Entitic vol] 97.4 fL Normal 81.0-99.0 [facility] Comment on above: Performed By: #### K U #### [facility] [address] [place] [address] Dr. Lisa Martinez MONO # 0.6 103/ul Normal 0.3-0.8 [facility] Comment on above: Performed By: #### K U #### [facility] [address] [place] [address] Dr. Lisa Martinez Monocytes/100 WBC (Bld) 8.8 % Normal 1.7-12.0 [facility] Comment on above: Performed By: #### K U #### [facility] [address] [address] [address] Lisa Martinez NEUT # 4.9 103/ul Normal 1.4-6.5 [facility] Comment on above: Performed By: #### K U #### [facility] [address] [address] [address] Lisa Martinez Neutrophils/100 WBC (Bld) 71.3 % Normal 43.0-75.0 [facility] Comment on above: Performed By: #### K U #### [facility] [address] [place] [address] Dr. Lisa Martinez Platelet mean volume (Bld) [Entitic vol] 10.5 fL Normal 9.5-13.5 [facility] Comment on above: Performed By: #### K U #### [facility] [address] [place] [address] Dr. Lisa Martinez PLT 251 103/ul Normal 150-450 [facility] Comment on above: Performed By: #### K U #### [facility] [address] [place] [address] Dr. Lisa Martinez RBC 3.49 106/ul Critically low 4.20-5.40 [facility] Comment on above: Performed By: #### K U #### [facility] [address] [place] [address] Dr. Lisa Martinez WBC 6.8 103/ul Normal 4.0-11.0 [facility] Comment on above: Performed By: #### K U #### [facility] [address] [place] [address] Dr. Lisa Martinez DIGOXINon 10-07-2022 DIG 1.7 ng/mL Normal 0.9-2.0 [facility] Comment on above: Performed By: #### U RCX #### [facility] [address] [place] [address] Dr. Lisa Martinez POINT OF CARE GLUCOSEon Glucose [Mass/Vol] 185 mg/dL Critically high 74-106 [facility] Comment on above: Performed By: #### B ASPARAGUS BUNCHER, BMP #### [facility] [address] [address] [address] Lisa Martinez Glucose [Mass/Vol] 120 mg/dL Critically high 74-106 [facility] Comment on above: Performed By: #### C VDTBH #### [facility] [address] [address] [address] Lisa Martinez Glucose [Mass/Vol] 218 mg/dL Critically high 74-106 [facility] Comment on above: Performed By: #### B LDCX2 #### [facility] [address] [address] [address] Lisa Martinez PROF CHEM 8 (BAS METB)on Anion gap [Moles/Vol] 12.3 mmol/L Normal [facility] Comment on above: Performed By: #### B ASPARAGUS BUNCHER, BMP #### [facility] [address] [place] [address] Dr. Lisa Martinez Calcium [Mass/Vol] 9.3 mg/dL Normal 8.5-10.1 [facility] Comment on above: Performed By: #### B ASPARAGUS BUNCHER, BMP #### [facility] [address] [address] [address] Lisa Martinez Chloride [Moles/Vol] 102 mmol/L Normal 98-107 [facility] Comment on above: Performed By: #### B ASPARAGUS BUNCHER, BMP #### [facility] [address] [address] [address] Lisa Martinez CO2 [Moles/Vol] 30.8 mmol/L Normal 21.0-32.0 [facility] Comment on above: Performed By: #### B ASPARAGUS BUNCHER, BMP #### [facility] [address] [address] [address] Lisa Martinez Creatinine [Mass/Vol] 1.45 mg/dL Critically high 0.55-1.02 [facility] Comment on above: Performed By: #### B ASPARAGUS BUNCHER, BMP #### [facility] [address] [address] [address] Lisa Martinez EGFR-AF PRYDEINIG 42 mL/min/1.73m2 Critically low >=60 [facility] Comment on above: Performed By: #### B ASPARAGUS BUNCHER, BMP #### [facility] [address] [address] [address] Lisa Martinez EGFR-NON AF PRYDEINIG 34 mL/min/1.73m2 Critically low >=60 [facility] Comment on above: Performed By: #### B ASPARAGUS BUNCHER, BMP #### [facility] [address] [address] [address] Lisa Martinez Glucose [Mass/Vol] 103 mg/dL Normal 74-106 [facility] Comment on above: Performed By: #### B ASPARAGUS BUNCHER, BMP #### [facility] [address] [address] [address] Lisa Martinez Potassium [Moles/Vol] 4.1 mmol/L Normal 3.5-5.1 [facility] Comment on above: Performed By: #### B ASPARAGUS BUNCHER, BMP #### [facility] [address] [address] [address] Lisa Martinez Sodium [Moles/Vol] 141 mmol/L Normal 136-145 [facility] Comment on above: Performed By: #### B ASPARAGUS BUNCHER, BMP #### [facility] [address] [address] [address] Lisa Martinez Urea nitrogen [Mass/Vol] 26.0 mg/dL Critically high 7.0-18.0 [facility] Comment on above: Performed By: #### B ASPARAGUS BUNCHER, BMP #### [facility] [address] [address] [address] Lisa Martinez Urea nitrogen/Creatinin e [Mass ratio] 17.9 mg/mg Normal [facility] Comment on above: Performed By: #### B ASPARAGUS BUNCHER, BMP #### [facility] [address] [address] [address] Lisa Martinez BNPon 10-06-2022 Natriuretic peptide B (Bld) [Mass/Vol] 6211.0 pg/mL Critically high <=1,800.0 [facility] Comment on above: Performed By: #### C MADM, LIVER, CMP, BNP ####[facility] [address] [address]Dr. Lisa Martinez CARDIAC DONY ADMITon 023 CK [Catalytic activity/Vol] 50 U/L Normal 26-192 [facility] Comment on above: Performed By: #### C MADM, LIVER, CMP, BNP ####[facility] [address] [address]Dr. Lisa Martinez CK.MB [Mass/Vol] 0.89 ng/mL Normal <=3.60 [facility] Comment on above: Performed By: #### C MADM, LIVER, CMP, BNP ####[facility] [address] [address]Dr. Lisa Martinez HSTROP 19.1 pg/mL Normal 4.0-51.3 [facility] Comment on above: Result Comment: CUT- OFF POINTS HAVE BEEN ESTABLISHED BASED ON THE FOURTH UNIVERSAL DEFINITIONS OF MYOCARDIAL INFARCTION. THE UPPER REFERENCE LIMIT (URL) OF TROPONIN, DEFINED THE 99TH PERCENTILE OF cTnI DISTRIBUTION IN A REFERENCE POPULATION, HAS BEEN CONFIRMED THE DECISION THRESHOLD FOR PR DIAGNOSIS. Performed By: #### C MADM, LIVER, CMP, BNP ####[facility] [address] [address]Dr. Lisa Martinez LISSY 56 ng/mL Normal 9-82 [facility] Comment on above: Performed By: #### C MADM, LIVER, CMP, BNP ####[facility] [address] [address]Dr. Lisa Martinez CBC AUTO DIFFon 10-06-2022 BASO # 0.1 103/ul Normal 0.0-0.1 [facility] Comment on above: Performed By: #### C BC #### [facility] [address] [address] [address] Lisa Martinez Basophils/100 WBC (Bld) 0.7 % Normal 0.2-2.0 [facility] Comment on above: Performed By: #### C BC #### [facility] [address] [address] [address] Lisa Martinez EO # 0.2 103/ul Normal 0.0-0.7 [facility] Comment on above: Performed By: #### C BC #### [facility] [address] [place] [address] Dr. Lisa Martinez Eosinophils/100 WBC (Bld) 2.0 % Normal 0.9-7.0 [facility] Comment on above: Performed By: #### C BC #### [facility] [address] [place] [address] Dr. Lisa Martinez Erythrocyte distribution width (RBC) [Ratio] 15.7 % Critically high 11.0-15.0 [facility] Comment on above: Performed By: #### C BC #### [facility] [address] [place] [address] Dr. Lisa Martinez Hematocrit (Bld) [Volume fraction] 32.4 % Critically low 36.0-48.0 [facility] Comment on above: Performed By: #### C BC #### [facility] [address] [place] [address] Dr. Lisa Martinez Hemoglobin (Bld) [Mass/Vol] 10.0 g/dL Critically low 12.0-16.0 [facility] Comment on above: Performed By: #### C BC #### [facility] [address] [place] [address] Dr. Lisa Martinez IG # 0.02 10e3/ul Normal 0.00-0.03 [facility] Comment on above: Performed By: #### C BC #### [facility] [address] [place] [address] Dr. Lisa Martinez IG % 0.3 % Normal 0.0-0.5 [facility] Comment on above: Performed By: #### C BC #### [facility] [address] [place] [address] Dr. Lisa Martinez LYMPH # 0.7 103/ul Critically low 1.2-3.8 [facility] Comment on above: Performed By: #### C BC #### [facility] [address] [place] [address] Dr. Lisa Martinez Lymphocytes/100 WBC (Bld) 9.2 % Critically low 20.5-60.0 [facility] Comment on above: Performed By: #### C BC #### [facility] [address] [place] [address] Dr. Lisa Martinez MANUAL DIFF REQ NO Normal [facility] Comment on above: Performed By: #### C BC #### [facility] [address] [place] [address] Dr. Lisa Martinez MCH (RBC) [Entitic mass] 29.8 pg Normal 26.7-34.0 [facility] Comment on above: Performed By: #### C BC #### [facility] [address] [place] [address] Dr. Lisa Martinez MCHC (RBC) [Mass/Vol] 30.9 g/dL Normal 29.9-35.2 [facility] Comment on above: Performed By: #### C BC #### [facility] [address] [place] [address] Dr. Lisa Martinez MCV (RBC) [Entitic vol] 96.4 fL Normal 81.0-99.0 [facility] Comment on above: Performed By: #### C BC #### [facility] [address] [place] [address] Dr. Lisa Martinez MONO # 0.5 103/ul Normal 0.3-0.8 [facility] Comment on above: Performed By: #### C BC #### [facility] [address] [place] [address] Dr. Lisa Martinez Monocytes/100 WBC (Bld) 6.4 % Normal 1.7-12.0 [facility] Comment on above: Performed By: #### C BC #### [facility] [address] [place] [address] Dr. Lisa Martinez NEUT # 6.2 103/ul Normal 1.4-6.5 [facility] Comment on above: Performed By: #### C BC #### [facility] [address] [place] [address] Dr. Lisa Martinez Neutrophils/100 WBC (Bld) 81.4 % Critically high 43.0-75.0 [facility] Comment on above: Performed By: #### C BC #### [facility] [address] [place], [place] [address] Dr. Lisa Martinez Platelet mean volume (Bld) [Entitic vol] 10.2 fL Normal 9.5-13.5 [facility] Comment on above: Performed By: #### C BC #### [facility] [address] [place], [place] [address] Dr. Lisa Martinez PLT 228 103/ul Normal 150-450 [facility] Comment on above: Performed By: #### C BC #### [facility] [address] [address] [address] Lisa Martinez RBC 3.36 106/ul Critically low 4.20-5.40 [facility] Comment on above: Performed By: #### C BC #### [facility] [id number] Lisa Martinez WBC 7.6 103/ul Normal 4.0-11.0 [facility] Comment on above: Performed By: #### C BC #### [facility] [address] [place] [address] Dr. Lisa Martinez CTA CHEST WO W [...] JENNY MARQUEZ Date: 2022-10-06 14:18 Normal [facility] Covid-19 PCR ([facility]on 09-08 SARS-CoV-2 (COVID-19) RNA RACIEL+probe Ql (Unsp spec) Not detected Normal NOT DETECTED [facility] Comment on above: Result Comment: When diagnostic [...] for this test is supported by the [employer] of [employer] and Human Service's declaration that [...] longer be used). Performed By: #### C VDTB ####[facility] [address] [place], [place] [address]MsIngrid Martinez DIGOXINon 10-06-2022 DIG 2.3 ng/mL Critically high 0.9-2.0 [facility] Comment on above: Performed By: #### C BC #### [facility] [address] [address] [address] Lisa Martinez LIVER PROFILEon 10-06-2022 BILI, CONJUGATED 0.4 mg/dL Critically high 0.0-0.2 [facility] Comment on above: Performed By: #### C MADM, LIVER, CMP, BNP ####[facility] [address] [address]DrIngrid Martinez POINT OF CARE GLUCOSEon 09-08 Glucose [Mass/Vol] 154 mg/dL Critically high 74-106 [facility] Comment on above: Performed By: #### B ASPARAGUS BUNCHER, BMP #### [facility] [address] [address] [address] Lisa Martinez Glucose [Mass/Vol] 77 mg/dL Normal 74-106 [facility] Comment on above: Performed By: #### B ASPARAGUS BUNCHER, BMP #### [facility] [address] [address] [address] Lisa Martinez PROF 14(COMP METB)on 023 Albumin [Mass/Vol] 3.5 g/dL Normal 3.4-5.0 [facility] Comment on above: Performed By: #### C MADM, LIVER, CMP, BNP ####[facility] [address] [address]DrIngrid Martinez Albumin/Globulin [Mass ratio] 0.8 {ratio} Normal [facility] Comment on above: Performed By: #### C MADM, LIVER, CMP, BNP ####[facility] [address] [address]DrIngrid Martinez ALP [Catalytic activity/Vol] 94 U/L Normal 46-116 [facility] Comment on above: Performed By: #### C MADM, LIVER, CMP, BNP ####[facility] [address] [address]DrIngrid Martinez ALT [Catalytic activity/Vol] 13 U/L Critically low 14-59 [facility] Comment on above: Performed By: #### C MADM, LIVER, CMP, BNP ####[facility] [address] [address]Dr. Lisa Martinez Anion gap [Moles/Vol] 11.1 mmol/L Normal [facility] Comment on above: Performed By: #### C MADM, LIVER, CMP, BNP ####[facility] [address] [address]Dr. Lisa Martinez AST [Catalytic activity/Vol] 15 U/L Normal 15-37 [facility] Comment on above: Performed By: #### C MADM, LIVER, CMP, BNP ####[facility] [address] [address]Dr. Lisa Martinez Bilirubin [Mass/Vol] 1.6 mg/dL Critically high 0.2-1.0 [facility] Comment on above: Performed By: #### C MADM, LIVER, CMP, BNP ####[facility] [address] [address]Dr. Lisa Martinez Calcium [Mass/Vol] 9.2 mg/dL Normal 8.5-10.1 [facility] Comment on above: Performed By: #### C MADM, LIVER, CMP, BNP ####[facility] [address] [place], [place] [address]Dr. Lisa Martinez Chloride [Moles/Vol] 106 mmol/L Normal 98-107 [facility] Comment on above: Performed By: #### C MADM, LIVER, CMP, BNP ####[facility] [address] [address]Dr. Lisa Martinez CO2 [Moles/Vol] 29.0 mmol/L Normal 21.0-32.0 [facility] Comment on above: Performed By: #### C MADM, LIVER, CMP, BNP ####[facility] [address] [address]Dr. Lisa Martinez Creatinine [Mass/Vol] 1.43 mg/dL Critically high 0.55-1.02 [facility] Comment on above: Performed By: #### C MADM, LIVER, CMP, BNP ####[facility] [address] [address]Dr. Lisa Martinez EGFR-AF PRYDEINIG 42 mL/min/1.73m2 Critically low >=60 [facility] Comment on above: Performed By: #### C MADM, LIVER, CMP, BNP ####[facility] [address] [address]Dr. Lisa Martinez EGFR-NON AF PRYDEINIG 35 mL/min/1.73m2 Critically low >=60 [facility] Comment on above: Performed By: #### C MADM, LIVER, CMP, BNP ####[facility] [address] [address]Dr. Lisa Martinez Globulin (S) [Mass/Vol] 4.2 g/dL Normal [facility] Comment on above: Performed By: #### C MADM, LIVER, CMP, BNP ####[facility] [address] [place], [place] [address]Dr. Fabianachapis Martinez Glucose [Mass/Vol] 114 mg/dL Critically high 74-106 [facility] Comment on above: Performed By: #### C MADM, LIVER, CMP, BNP ####[facility] [address] [place], [place] [address]Dr. Lisa Matrinez Potassium [Moles/Vol] 4.1 mmol/L Normal 3.5-5.1 [facility] Comment on above: Performed By: #### C MADM, LIVER, CMP, BNP ####[facility] [address] [address]Dr. Lisa Martinez Protein [Mass/Vol] 7.7 g/dL Normal 6.4-8.2 [facility] Comment on above: Performed By: #### C MADM, LIVER, CMP, BNP ####[facility] [address] [place] [address]Dr. Fabianachapis Martinez Sodium [Moles/Vol] 142 mmol/L Normal 136-145 [facility] Comment on above: Performed By: #### C MADM, LIVER, CMP, BNP ####[facility] [id number] [place] [address]Dr. Lisa Martinez Urea nitrogen [Mass/Vol] 26.0 mg/dL Critically high 7.0-18.0 [facility] Comment on above: Performed By: #### C MADM, LIVER, CMP, BNP ####[facility] [id number] [place] [address]Dr. Lisa Martinez Urea nitrogen/Creatinin e [Mass ratio] 18.2 mg/mg Normal [facility] Comment on above: Performed By: #### C MADM, LIVER, CMP, BNP ####[facility] [id number] [place], [place] [address]UiDr. Lisa Martinez PROTIMEon 10-06-2022 INR Coag (PPP) [Relative time] 1.09 {INR} Normal [facility] Comment on above: Performed By: #### B ASPARAGUS BUNCHER, BMP #### [facility] [address] [place] [address] Dr. Lisa Martinez INR GUIDELINES SEE BELOW Normal [facility] Comment on above: Result Comment: ANTONY RED INR: 2.0 - 3.0 CONDITIONS NOT LISTED BELOW 2.5 - 3.5 FOR PROSTHETIC HEART VALVE REPLACEMENT 2.5 - 3.5 RECURRENT THROMBOSIS Performed By: #### B ASPARAGUS BUNCHER, BMP #### [facility] [address] [place] [address] Dr. Lisa Martinez PT Coag (PPP) [Time] 11.5 s Normal 9.0-11.6 [facility] Comment on above: Performed By: #### B ASPARAGUS BUNCHER, BMP #### [facility] [address] [place] [address] Dr. Lisa Martinez PTTon 10-06-2022 aPTT Coag (Bld) [Time] 26.5 s Normal 22.3-36.2 [facility] Comment on above: Performed By: #### B ASPARAGUS BUNCHER, BMP #### [facility] [address] [place] [address] Dr. Lisa Martniez ECHOCARDIO M/2D COMPLETEon 1 08-27-2021 ECHOCARDIO M/2D COMPLETE Patient: JENNI VILLEGAS Exam Date: 06/26/2022 : 1940 Gender:F Ordering : FARZANEH ARNDT Admission #: [id number] Family : Order #: [id number] CLICK HERE TO VIEW EXAM ECHOCARDIOGRAM REPORT [...] 0.81 cm2, 0.87 cm2, 0.77 cm2 Deceleration Latimer: 0.72 m/s2 Pressure Half-Time: 1.18 s Peak [...] Chao M.D. on 06/29/2022 at 15:34 Normal [facility] CBC AUTO DIFFon 05-02-2022 BASO # 0.0 103/ul Normal 0.0-0.1 [facility] Comment on above: Performed By: #### C BC #### [facility] [address] [address] [address] Lisa Martinez Basophils/100 WBC (Bld) 0.4 % Normal 0.2-2.0 [facility] Comment on above: Performed By: #### C BC #### [facility] [address] [address] [address] Lisa Martinez EO # 0.1 103/ul Normal 0.0-0.7 [facility] Comment on above: Performed By: #### C BC #### [facility] [address] [address] [address] Lisa Martinez Eosinophils/100 WBC (Bld) 1.8 % Normal 0.9-7.0 [facility] Comment on above: Performed By: #### C BC #### [facility] [address] [address] [address] Lisa Martinez Erythrocyte distribution width (RBC) [Ratio] 13.3 % Normal 11.0-15.0 [facility] Comment on above: Performed By: #### C BC #### [facility] [address] [address] [address] Lisa Martinez Hematocrit (Bld) [Volume fraction] 38.4 % Normal 36.0-48.0 [facility] Comment on above: Performed By: #### C BC #### [facility] [address] [address] [address] Lisa Martinez Hemoglobin (Bld) [Mass/Vol] 12.0 g/dL Normal 12.0-16.0 [facility] Comment on above: Performed By: #### C BC #### [facility] [address] [address] [address] Lisa Martinez IG # 0.09 10e3/ul Critically high 0.00-0.03 [facility] Comment on above: Performed By: #### C BC #### [facility] [address] [address] [address] Lisa Martinez IG % 1.6 % Critically high 0.0-0.5 [facility] Comment on above: Performed By: #### C BC #### [facility] [address] [address] [address] Lisa Martinez LYMPH # 0.9 103/ul Critically low 1.2-3.8 [facility] Comment on above: Performed By: #### C BC #### [facility] [address] [place] [address] Dr. Lisa Martinez Lymphocytes/100 WBC (Bld) 16.0 % Critically low 20.5-60.0 [facility] Comment on above: Performed By: #### C BC #### [facility] [address] [place] [address] Dr. Lisa Martinez MANUAL DIFF REQ NO Normal [facility] Comment on above: Performed By: #### C BC #### [facility] [address] [place] [address] Dr. Lisa Martinez MCH (RBC) [Entitic mass] 30.2 pg Normal 26.7-34.0 [facility] Comment on above: Performed By: #### C BC #### [facility] [address] [place] [address] Dr. Lisa Martinez MCHC (RBC) [Mass/Vol] 31.3 g/dL Normal 29.9-35.2 [facility] Comment on above: Performed By: #### C BC #### [facility] [address] [place] [address] Dr. Lisa Martinez MCV (RBC) [Entitic vol] 96.7 fL Normal 81.0-99.0 [facility] Comment on above: Performed By: #### C BC #### [facility] [address] [place] [address] Dr. Lisa Martinez MONO # 0.6 103/ul Normal 0.3-0.8 [facility] Comment on above: Performed By: #### C BC #### [facility] [address] [place] [address] Dr. Lisa Martinez Monocytes/100 WBC (Bld) 11.3 % Normal 1.7-12.0 [facility] Comment on above: Performed By: #### C BC #### [facility] [address] [address] [address] Lisa Martinez NEUT # 3.9 103/ul Normal 1.4-6.5 [facility] Comment on above: Performed By: #### C BC #### [facility] [address] [address] [address] Lisa Martinez Neutrophils/100 WBC (Bld) 68.9 % Normal 43.0-75.0 [facility] Comment on above: Performed By: #### C BC #### [facility] [address] [place] [address] Dr. Lisa Martinez Platelet mean volume (Bld) [Entitic vol] 10.7 fL Normal 9.5-13.5 [facility] Comment on above: Performed By: #### C BC #### [facility] [address] [place] [address] Dr. Lisa Martinez PLT 164 103/ul Normal 150-450 [facility] Comment on above: Performed By: #### C BC #### [facility] [address] [place] [address] Dr. Lisa Martinez RBC 3.97 106/ul Critically low 4.20-5.40 [facility] Comment on above: Performed By: #### C BC #### [facility] [address] [place] [address] Dr. Lisa Martinez WBC 5.6 103/ul Normal 4.0-11.0 [facility] Comment on above: Performed By: #### C BC #### [facility] [address] [place] [address] Dr. Lisa Martinez PROF 14(COMP METB)on 022 Albumin [Mass/Vol] 2.8 g/dL Critically low 3.4-5.0 [facility] Comment on above: Performed By: #### U RCX #### [facility] [address] [place] [address] Dr. Lisa Martinez Albumin/Globulin [Mass ratio] 0.7 {ratio} Normal [facility] Comment on above: Performed By: #### U RCX #### [facility] [address] [address] [address] Lisa Martinez ALP [Catalytic activity/Vol] 74 U/L Normal 46-116 [facility] Comment on above: Performed By: #### U RCX #### [facility] [address] [address] [address] Lisa Martinez ALT [Catalytic activity/Vol] 11 U/L Critically low 14-59 [facility] Comment on above: Performed By: #### U RCX #### [facility] [address] [address] [address] Lisa Martinez Anion gap [Moles/Vol] 13.5 mmol/L Normal [facility] Comment on above: Performed By: #### U RCX #### [facility] [address] [address] [address] Lisa Martinez AST [Catalytic activity/Vol] 14 U/L Critically low 15-37 [facility] Comment on above: Performed By: #### U RCX #### [facility] [address] [address] [address] Lisa Martinez Bilirubin [Mass/Vol] 0.5 mg/dL Normal 0.2-1.0 [facility] Comment on above: Performed By: #### U RCX #### [facility] [address] [address] [address] Lisa Martinez Calcium [Mass/Vol] 8.5 mg/dL Normal 8.5-10.1 [facility] Comment on above: Performed By: #### U RCX #### [facility] [address] [address] [address] Lisa Martinez Chloride [Moles/Vol] 103 mmol/L Normal 98-107 [facility] Comment on above: Performed By: #### U RCX #### [facility] [address] [address] [address] Lisa Martinez CO2 [Moles/Vol] 24.5 mmol/L Normal 21.0-32.0 [facility] Comment on above: Performed By: #### U RCX #### [facility] [address] [address] [address] Lisa Martinez Creatinine [Mass/Vol] 1.43 mg/dL Critically high 0.55-1.02 [facility] Comment on above: Performed By: #### U RCX #### [facility] [address] [address] [address] Lisa Martinez EGFR-AF PRYDEINIG 42 mL/min/1.73m2 Critically low >=60 [facility] Comment on above: Performed By: #### U RCX #### [facility] [address] [address] [address] Lisa Martinez EGFR-NON AF PRYDEINIG 35 mL/min/1.73m2 Critically low >=60 [facility] Comment on above: Performed By: #### U RCX #### [facility] [address] [address] [address] Lisa Martinez Globulin (S) [Mass/Vol] 4.3 g/dL Normal [facility] Comment on above: Performed By: #### U RCX #### [facility] [address] [address] [address] Lisa Martinez Glucose [Mass/Vol] 142 mg/dL Critically high 74-106 [facility] Comment on above: Performed By: #### U RCX #### [facility] [address] [address] [address] Lisa Martinez Potassium [Moles/Vol] 4.0 mmol/L Normal 3.5-5.1 [facility] Comment on above: Performed By: #### U RCX #### [facility] [address] [address] [address] Lisa Martinez Protein [Mass/Vol] 7.1 g/dL Normal 6.4-8.2 [facility] Comment on above: Performed By: #### U RCX #### [facility] [address] [address] [address] Lisa Martinez Sodium [Moles/Vol] 137 mmol/L Normal 136-145 [facility] Comment on above: Performed By: #### U RCX #### [facility] [address] [place] [address] Dr. Lisa Martinez Urea nitrogen [Mass/Vol] 31.0 mg/dL Critically high 7.0-18.0 [facility] Comment on above: Performed By: #### U RCX #### [facility] [address] [place] [address] Dr. Lisa Martinez Urea nitrogen/Creatinin e [Mass ratio] 21.7 mg/mg Normal [facility] Comment on above: Performed By: #### U RCX #### [facility] [address] [place] [address] Dr. Lisa Martinez CBC AUTO DIFFon 05-01-2022 BASO # 0.0 103/ul Normal 0.0-0.1 [facility] Comment on above: Performed By: #### U RCX #### [facility] [address] [place] [address] Dr. Lisa Martinez Basophils/100 WBC (Bld) 0.3 % Normal 0.2-2.0 [facility] Comment on above: Performed By: #### U RCX #### [facility] [address] [place] [address] Dr. Lisa Martinez EO # 0.1 103/ul Normal 0.0-0.7 [facility] Comment on above: Performed By: #### U RCX #### [facility] [address] [place] [address] Dr. Lisa Martinez Eosinophils/100 WBC (Bld) 0.9 % Normal 0.9-7.0 [facility] Comment on above: Performed By: #### U RCX #### [facility] [address] [place] [address] Dr. Lisa Martinez Erythrocyte distribution width (RBC) [Ratio] 13.4 % Normal 11.0-15.0 [facility] Comment on above: Performed By: #### U RCX #### [facility] [address] [place] [address] Dr. Lisa Martinez Hematocrit (Bld) [Volume fraction] 41.6 % Normal 36.0-48.0 [facility] Comment on above: Performed By: #### U RCX #### [facility] [address] [address] [address] Lisa Martinez Hemoglobin (Bld) [Mass/Vol] 12.8 g/dL Normal 12.0-16.0 [facility] Comment on above: Performed By: #### U RCX #### [facility] [address] [address] [address] Lisa Martinez IG # 0.16 10e3/ul Critically high 0.00-0.03 [facility] Comment on above: Performed By: #### U RCX #### [facility] [address] [address] [address] Lisa Martinez IG % 1.6 % Critically high 0.0-0.5 [facility] Comment on above: Performed By: #### U RCX #### [facility] [address] [address] [address] Lisa Martinez LYMPH # 0.8 103/ul Critically low 1.2-3.8 [facility] Comment on above: Performed By: #### U RCX #### [facility] [address] [address] [address] Lisa Martinez Lymphocytes/100 WBC (Bld) 7.8 % Critically low 20.5-60.0 [facility] Comment on above: Performed By: #### U RCX #### [facility] [address] [address] [address] Lisa Martinez MANUAL DIFF REQ NO Normal [facility] Comment on above: Performed By: #### U RCX #### [facility] [address] [address] [address] Lisa Martinez MCH (RBC) [Entitic mass] 29.8 pg Normal 26.7-34.0 [facility] Comment on above: Performed By: #### U RCX #### [facility] [address] [address] [address] Lisa Martinez MCHC (RBC) [Mass/Vol] 30.8 g/dL Normal 29.9-35.2 [facility] Comment on above: Performed By: #### U RCX #### [facility] [address] [address] [address] Lisa Martinez MCV (RBC) [Entitic vol] 96.7 fL Normal 81.0-99.0 [facility] Comment on above: Performed By: #### U RCX #### [facility] [address] [address] [address] Lisa Martinez MONO # 0.8 103/ul Normal 0.3-0.8 [facility] Comment on above: Performed By: #### U RCX #### [facility] [address] [address] [address] Lisa Martinez Monocytes/100 WBC (Bld) 8.4 % Normal 1.7-12.0 [facility] Comment on above: Performed By: #### U RCX #### [facility] [address] [place] [address] Dr. Lisa Martinez NEUT # 7.9 103/ul Critically high 1.4-6.5 [facility] Comment on above: Performed By: #### U RCX #### [facility] [address] [address] [address] Lisa Martinez Neutrophils/100 WBC (Bld) 81.0 % Critically high 43.0-75.0 [facility] Comment on above: Performed By: #### U RCX #### [facility] [address] [address] [address] Lisa Martinez Platelet mean volume (Bld) [Entitic vol] 10.6 fL Normal 9.5-13.5 [facility] Comment on above: Performed By: #### U RCX #### [facility] [address] [address] [address] Lisa Martinez PLT 211 103/ul Normal 150-450 [facility] Comment on above: Performed By: #### U RCX #### [facility] [address] [address] [address] Lisa Martinez RBC 4.30 106/ul Normal 4.20-5.40 [facility] Comment on above: Performed By: #### U RCX #### [facility] [address] [place] [address] Dr. Lisa Martinez WBC 9.8 103/ul Normal 4.0-11.0 [facility] Comment on above: Performed By: #### U RCX #### [facility] [address] [place] [address] Dr. Lisa Martinez DIGOXINon 05-01-2022 DIG 0.7 ng/mL Critically low 0.9-2.0 [facility] Comment on above: Performed By: #### B ASPARAGUS BUNCHER, BMP #### [facility] [address] [place] [address] Dr. Lisa Martinez GI PANEL (PCR)on 05-01-2022 Adenovirus F 40/41 Not detected Normal NOT DETECTED [facility] Comment on above: Performed By: #### B LDCX2 #### [facility] [address] [place] [address] Dr. Lisa Martinez Astrovirus Not detected Normal NOT DETECTED [facility] Comment on above: Performed By: #### B LDCX2 #### [facility] [address] [place] [address] Dr. Lisa Martinez C. Diff toxin A/B Not detected Normal NOT DETECTED [facility] Comment on above: Performed By: #### B LDCX2 #### [facility] [address] [place] [address] Dr. Lisa Martinez Campylobacter Not detected Normal NOT DETECTED [facility] Comment on above: Performed By: #### B LDCX2 #### [facility] [address] [place] [address] Dr. Lisa Martinez Cryptosporidium Not detected Normal NOT DETECTED [facility] Comment on above: Performed By: #### B LDCX2 #### [facility] [address] [place] [address] Dr. Lisa Martinez Cyclos. Cayetanensis Not detected Normal NOT DETECTED [facility] Comment on above: Performed By: #### B LDCX2 #### [facility] [address] [place] [address] Dr. Lisa Martinez E. Coli O157 Not Applicable Normal Not Applicable [facility] Comment on above: Performed By: #### B LDCX2 #### [facility] [address] [place] [address] Dr. Lisa Martinez E. histolytica Not detected Normal NOT DETECTED [facility] Comment on above: Performed By: #### B LDCX2 #### [facility] [address] [place] [address] Dr. Lisa Martinez EAEC Not detected Normal NOT DETECTED [facility] Comment on above: Performed By: #### B LDCX2 #### [facility] [address] [place] [address] Dr. Lisa Martinez EIEC Not detected Normal NOT DETECTED [facility] Comment on above: Performed By: #### B LDCX2 #### [facility] [address] [place] [address] Dr. Lisa Martinez EPEC Not detected Normal NOT DETECTED [facility] Comment on above: Performed By: #### B LDCX2 #### [facility] [address] [place] [address] Dr. Lisa Martinez ETEC Not detected Normal NOT DETECTED [facility] Comment on above: Performed By: #### B LDCX2 #### [facility] [address] [place] [address] Dr. Lisa Martinez G. Lamblia Not detected Normal NOT DETECTED [facility] Comment on above: Performed By: #### B LDCX2 #### [facility] [address] [place] [address] Dr. Lisa WILSONL CONTROLS PASSED Normal [facility] Comment on above: Performed By: #### B LDCX2 #### [facility] [address] [place] [address] Dr. Lisa LEWIS CHRIS HEADER GI PANEL BACTERIA Normal T [facility] Comment on above: Performed By: #### B LDCX2 #### [facility] [address] [place] [address] Dr. Lisa LEWISHD ECOLI GI PANEL DIARRHEAGEN IC E.COLI / SHIGELLA Normal [facility] Comment on above: Performed By: #### B LDCX2 #### [facility] [address] [address] [address] Lisa HIRSCH INFO SEE BELOW Normal [facility] Comment on above: Result Comment: EAEC - Enteroaggregative E. Coli EPEC- Enteropathogenic E. Coli ETEC- Enterotoxigenic E. Coli lt/st STEC- Shigella-like toxin-producing E. Coli stx1/stx2 EIEC- Shigella/Enteroinvasive E. Coli Performed By: #### B LDCX2 #### [facility] [address] [address] [address] Lisa HIRSCH PARASITES GI PANEL PARASITES Normal [facility] Comment on above: Performed By: #### B LDCX2 #### [facility] [address] [place] [address] Dr. Lisa HIRSCH VIRUS GI PANEL VIRUSES Normal [facility] Comment on above: Performed By: #### B LDCX2 #### [facility] [address] [place] [address] Dr. Lisa Martinez Norovirus GI/GII Not detected Normal NOT DETECTED [facility] Comment on above: Performed By: #### B LDCX2 #### [facility] [address] [place] [address] Dr. Lisa Martinez P. Shigelloides Not detected Normal NOT DETECTED [facility] Comment on above: Performed By: #### B LDCX2 #### [facility] [address] [address] [address] Lisa Martinez Rotavirus A Not detected Normal NOT DETECTED [facility] Comment on above: Performed By: #### B LDCX2 #### [facility] [address] [address] [address] Lisa Martinez Salmonella Not detected Normal NOT DETECTED [facility] Comment on above: Performed By: #### B LDCX2 #### [facility] [address] [address] [address] Lisa Martinez Sapovirus Not detected Normal NOT DETECTED [facility] Comment on above: Performed By: #### B LDCX2 #### [facility] [address] [address] [address] Lisa Martinez STEC Not detected Normal NOT DETECTED [facility] Comment on above: Performed By: #### B LDCX2 #### [facility] [address] [address] [address] Lisa Martinez Vibrio Not detected Normal NOT DETECTED [facility] Comment on above: Performed By: #### B LDCX2 #### [facility] [address] [place] [address] Dr. Lisa Martinez Vibrio Cholera Not detected Normal NOT DETECTED [facility] Comment on above: Performed By: #### B LDCX2 #### [facility] [address] [place] [address] Dr. Lisa Martinez Y. Enterocolitica Not detected Normal NOT DETECTED [facility] Comment on above: Performed By: #### B LDCX2 #### [facility] [address] [place] [address] Dr. Lisa Martinez MAGNESIUMon 05-01-2022 Magnesium [Mass/Vol] 2.0 mg/dL Normal 1.8-2.4 [facility] [facility] Comment on above: Performed By: #### M G ####[facility] [address] [address]Dr. Lisa Martinez POINT OF CARE GLUCOSEon 04-09 Glucose [Mass/Vol] 184 mg/dL Critically high -106 [facility] Comment on above: Performed By: #### U RCX #### [facility] [address] [place] [address] Dr. Lisa Martinez Glucose [Mass/Vol] 137 mg/dL Critically high [facility] Comment on above: Result Comment: Foll ow Protocol Performed By: #### C BC #### [facility] [address] [place] [address] Dr. Lisa Martinez Glucose [Mass/Vol] 170 mg/dL Critically high [facility] Comment on above: Result Comment: Foll ow Protocol Performed By: #### P OCGLUC ####[facility] [address] [address]Dr. Lisa Martinez PROF 14(COMP METB)on 022 Albumin [Mass/Vol] 3.0 g/dL Critically low 3.4-5.0 Th e [facility] Comment on above: Performed By: #### C MP ####[facility] [address] [address]Dr. Lisa Martinez Albumin/Globulin [Mass ratio] 0.6 {ratio} Normal [facility] Comment on above: Performed By: #### C MP ####[facility] [address] [place], [place] [address]Dr. Lisa Martinez ALP [Catalytic activity/Vol] 101 U/L Normal 46-116 [facility] Comment on above: Performed By: #### C MP ####[facility] [address] [place], [place] [address]Dr. Lisa Martinez ALT [Catalytic activity/Vol] 16 U/L Normal 14-59 [facility] Comment on above: Performed By: #### C MP ####[facility] Nme[address] [place], [place] [address]Dr. Lisa Martinez Anion gap [Moles/Vol] 9.7 mmol/L Normal [facility] Comment on above: Performed By: #### C MP ####[facility] [address] [place], [place] [address]Dr. Lisa Martinez AST [Catalytic activity/Vol] 13 U/L Critically low 15-37 [facility] Comment on above: Performed By: #### C MP ####[facility] [address] [place], [place] [address]Dr. Lisa Martinez Bilirubin [Mass/Vol] 0.5 mg/dL Normal 0.2-1.0 [facility] Comment on above: Performed By: #### C MP ####[facility] [address]nc[address]id[address] [place], [place] [address]Dr. Lisa Martinez Calcium [Mass/Vol] 8.8 mg/dL Normal 8.5-10.1 [facility] Comment on above: Performed By: #### C MP ####[facility] [address] [address]Dr. Lisa Martinez Chloride [Moles/Vol] 104 mmol/L Normal 98-107 [facility] Comment on above: Performed By: #### C MP ####[facility] [address] [address]Dr. Lisa Martinez CO2 [Moles/Vol] 26.8 mmol/L Normal 21.0-32.0 [facility] Comment on above: Performed By: #### C MP ####[facility] [address] [place], [place] [address]Dr. Lisa Martinez Creatinine [Mass/Vol] 1.51 mg/dL Critically high 0.55-1.02 [facility] Comment on above: Performed By: #### C MP ####[facility] [address]ft[address] [place], [place] [address]Dr. Lisa Martinez EGFR-AF PRYDEINIG 40 mL/min/1.73m2 Critically low >=60 [facility] Comment on above: Performed By: #### C MP ####[facility] Uaincflrik[address] [place], [place] [address]Dr. Lisa Martinez EGFR-NON AF PRYDEINIG 33 mL/min/1.73m2 Critically low >=60 [facility] Comment on above: Performed By: #### C MP ####[facility] [address]qnxq[address] [place], [place] [address]Dr. Lisa Martinez Globulin (S) [Mass/Vol] 4.8 g/dL Normal [facility] Comment on above: Performed By: #### C MP ####[facility] [address] [place], [place] [address]Dr. Lisa Martinez Glucose [Mass/Vol] 177 mg/dL Critically high 74-106 [facility] Comment on above: Performed By: #### C MP ####[facility] Fuureebqzo[address] [place], [place] [address]Dr. Lisa Martinez Potassium [Moles/Vol] 4.5 mmol/L Normal 3.5-5.1 [facility] Comment on above: Performed By: #### C MP ####[facility] [address] [address]Dr. Lisa Martinez Protein [Mass/Vol] 7.8 g/dL Normal 6.4-8.2 [facility] Comment on above: Performed By: #### C MP ####[facility] [address] [address]Dr. Lisa Martinez Sodium [Moles/Vol] 136 mmol/L Normal 136-145 [facility] Comment on above: Performed By: #### C MP ####[facility] [address] [address] [address]Dr. Lisa Martinez Urea nitrogen [Mass/Vol] 28.0 mg/dL Critically high 7.0-18.0 [facility] Comment on above: Performed By: #### C MP ####[facility] [address]qwayunsrs[address] [place], [place] [address]Dr. Lisa Martinez Urea nitrogen/Creatinin e [Mass ratio] 18.5 mg/mg Normal [facility] Comment on above: Performed By: #### C MP ####[facility] [address]qom[address] [place], [place] [address]DrIngrid Martinez BNPon 04-30-2022 Natriuretic peptide B (Bld) [Mass/Vol] 1752.0 pg/mL Normal <=1,800.0 [facility] Comment on above: Performed By: #### B ASPARAGUS BUNCHER, BMP #### [facility] [address] [address] [address] Lisa Martinez CBC AUTO DIFFon 04-30-2022 BASO # 0.1 103/ul Normal 0.0-0.1 [facility] Comment on above: Performed By: #### C BC ####[facility] C[address]ckjxj[address] [place], [place] [address]DrIngrid Martinez Basophils/100 WBC (Bld) 0.6 % Normal 0.2-2.0 [facility] Comment on above: Performed By: #### C BC ####[facility] By[address]gbqqfc[address] [place], [place] [address]DrIngrid Martinez EO # 0.1 103/ul Normal 0.0-0.7 [facility] Comment on above: Performed By: #### C BC ####[facility] [address] [address]Dr. Fabianachapis Martinez Eosinophils/100 WBC (Bld) 1.2 % Normal 0.9-7.0 [facility] Comment on above: Performed By: #### C BC ####[facility] Kvuz[address] [place], [place] [address]Dr. Lisa Martinez Erythrocyte distribution width (RBC) [Ratio] 13.2 % Normal 11.0-15.0 [facility] Comment on above: Performed By: #### C BC ####[facility] [address]jgwzd[address] [place], [place] [address]Dr. Lisa Martinez Hematocrit (Bld) [Volume fraction] 43.4 % Normal 36.0-48.0 [facility] Comment on above: Performed By: #### C BC ####[facility] Buaxeaofbc[address] [place], [place] [address]Dr. Lisa Martinez Hemoglobin (Bld) [Mass/Vol] 14.2 g/dL Normal 12.0-16.0 [facility] Comment on above: Performed By: #### C BC ####[facility] Pogosjwtir[address] [place], [place] [address]Dr. Lisa Martinez IG # 0.13 10e3/ul Critically high 0.00-0.03 [facility] Comment on above: Performed By: #### C BC ####[facility] Rsjbdkt[address] [place], [place] [address]Dr. Lisa Martinez IG % 1.6 % Critically high 0.0-0.5 [facility] Comment on above: Performed By: #### C BC ####[facility] Jrbpsialhz[address]17[address] [place], [place] [address]DrIngrid Martinez LYMPH # 0.8 103/ul Critically low 1.2-3.8 [facility] Comment on above: Performed By: #### C BC ####[facility] Cxpsrdrkea[address] [place], [place] [address]Dr. Lisa Martinez Lymphocytes/100 WBC (Bld) 9.8 % Critically low 20.5-60.0 [facility] Comment on above: Performed By: #### C BC ####[facility] [address] [address]DrIngrid Martinez MANUAL DIFF REQ NO Normal [facility] Comment on above: Performed By: #### C BC ####[facility] [address] [place] [address]DrIngrid Martinez MCH (RBC) [Entitic mass] 30.0 pg Normal 26.7-34.0 [facility] Comment on above: Performed By: #### C BC ####[facility] Shs[address]zc[address] [place], [place] [address]DrIngrid Martinez MCHC (RBC) [Mass/Vol] 32.7 g/dL Normal 29.9-35.2 [facility] Comment on above: Performed By: #### C BC ####[facility] [address]azsb[address]okx[address] [place], [place] [address]DrIngrid Martinez MCV (RBC) [Entitic vol] 91.8 fL Normal 81.0-99.0 [facility] Comment on above: Performed By: #### C BC ####[facility] [address]tv[address]xj[address] [place], [place] [address]DrIngrid Martinez MONO # 1.2 103/ul Critically high 0.3-0.8 [facility] Comment on above: Performed By: #### C BC ####[facility] [address] [place], [place] [address]DrIngrid Martinez Monocytes/100 WBC (Bld) 15.0 % Critically high 1.7-12.0 [facility] Comment on above: Performed By: #### C BC ####[facility] [address] [place], [place] [address]DrIngrid Martinez NEUT # 5.8 103/ul Normal 1.4-6.5 [facility] Comment on above: Performed By: #### C BC ####[facility] [address] [place], [place] [address]DrIngrid Martinez Neutrophils/100 WBC (Bld) 71.8 % Normal 43.0-75.0 [facility] Comment on above: Performed By: #### C BC ####[facility] [address] [place] [address]Dr. Lisa Martinez Platelet mean volume (Bld) [Entitic vol] 10.5 fL Normal 9.5-13.5 [facility] Comment on above: Performed By: #### C BC ####[facility] [address] [place] [address]Dr. Lisa Martinez PLT 242 103/ul Normal 150-450 [facility] Comment on above: Performed By: #### C BC ####[facility] [address] [place] [address]Dr. Lisa Martinez RBC 4.73 106/ul Normal 4.20-5.40 [facility] Comment on above: Performed By: #### C BC ####[facility] [address] [place] [address]Dr. Lisa Martinez WBC 8.1 103/ul Normal 4.0-11.0 [facility] Comment on above: Performed By: #### C BC ####[facility] [address] [place], [place] [id number]. Lisa Martinez CT HEAD WO CONon 04-30-2022 [...] MEENA HAWKINS Date: 2022-04-30 07:46 Normal [facility] CULTURE BLOODon 04-30-2022 Microscopic examination of blood, culture Culture Observations: NO GROWTH AT 5 DAYS. Normal [facility] Comment on above: Performed By: #### B LDCX2 #### [facility] [address] [place] [address] Dr. Lisa Martinez Microscopic examination of blood, culture Culture Observations: NO GROWTH AT 5 DAYS. Normal [facility] Comment on above: Performed By: #### B LDCX1 ####[facility] [address] [place] [address]Dr. Lisa Martinez CULTURE URINEon 04-30-2022 CULTURE URINE Culture Observations : No growth Normal [facility] Comment on above: Performed By: #### U RCX ####[facility] [address] [address]DrIngrid Martinez Covid-19 PCR (CVDTB)on 04-09 SARS-CoV-2 (COVID-19) RNA RACIEL+probe Ql (Unsp spec) Detected Critically abnormal NOT DETECTED [facility] Comment on above: Result Comment: This test is not yet approved or cleared by the [place] FDA. When there are no FDA-approved or cleared tests available, and other criteria are met, FDA can make tests available under an emergency access mechanism called an Emergency Use Authorization (EUA). The EUA for this test is supported by the [place] of Health and Human Service's declaration that [...] used). Performed By: #### C VDTBH #### [facility] [address] [place] [address] Dr. Lisa Martinez ER URINE PROFILEon 2 Bilirubin Ql (U) Negative Normal NEGATIVE [facility] Comment on above: Performed By: #### C BC #### [facility] [address] [place] [address] Dr. Lisa Martinez Clarity (U) CLEAR Normal CLEAR [facility] Comment on above: Performed By: #### C BC #### [facility] [address] [place] [address] Dr. Lisa Martinez Color (U) LT. YELLOW Normal YELLOW [facility] Comment on above: Performed By: #### C BC #### [facility] [address] [place] [address] Dr. Lisa Martinez ERUAHD A micrscopic examination will be performed if indicated. Normal [facility] Comment on above: Performed By: #### C BC #### [facility] [address] [place] [address] Dr. Lisa Martinez Glucose Ql (U) Negative Normal NEGATIVE [facility] Comment on above: Performed By: #### C BC #### [facility] [address] [place] [address] Dr. Lisa Martinez Hemoglobin Ql (U) Negative Normal NEGATIVE [facility] Comment on above: Performed By: #### C BC #### [facility] [address] [place] [address] Dr. Lisa Martinez Ketones Ql (U) Negative Normal NEGATIVE [facility] Comment on above: Performed By: #### C BC #### [facility] [address] [place] [address] Dr. Lisa Martinez LEUKOCYTES Negative Normal NEGATIVE [facility] Comment on above: Performed By: #### C BC #### [facility] [address] [place] [address] Dr. Lisa Martinez Nitrite Ql (U) Positive Abnormal NEGATIVE [facility] Comment on above: Performed By: #### C BC #### [facility] [address] [place] [address] Dr. Lisa Martinez pH (U) 5.5 [pH] Normal 5-9 [facility] Comment on above: Performed By: #### C BC #### [facility] [address] [place] [address] Dr. Lisa Martinez SPEC GRAVITY 1.030 Abnormal 1.005-<=1.025 [facility] Comment on above: Performed By: #### C BC #### [facility] [address] [address] [address] Lisa Martinez UA PROTEIN Negative Normal NEGATIVE/ TRACE [facility] Comment on above: Performed By: #### C BC #### [facility] [address] [address] [address] Lisa Martinez UR MICRO IND INDICATED Normal [facility] Comment on above: Performed By: #### C BC #### [facility] [address] [address] [address] Lisa Martinez Urobilinogen Qn (U) 0.2 {Mike'U}/dL Normal 0.2 - 1.0 [facility] Comment on above: Performed By: #### C BC #### [facility] [address] [place] [address] Dr. Lisa Martinez GLYCOHEMOGLOBIN A1Con 2021 ADA RECOMMENDATION SEE BELOW Normal [facility] Comment on above: Result Comment: ADA RECOMMENDED LIMIT 4.0 - 6.0 ADA THERAPEUTIC TARGET < 7.0 ACTION SUGGESTED > 7.0 Performed By: #### B ASPARAGUS BUNCHER, BMP #### [facility] [address] [address] [address] Lisa Martinez Glucose [Mass/Vol] 154 mg/dL Normal [facility] Comment on above: Performed By: #### B ASPARAGUS BUNCHER, BMP #### [facility] [address] [place] [address] Dr. Lisa Martinez HbA1c (Bld) [Mass fraction] 7.0 % Critically high 4.5-6.2 [facility] Comment on above: Performed By: #### B ASPARAGUS BUNCHER, BMP #### [facility] [address] [address] [address] Lisa Martinez LACTATE/LACTIC ACIDon 2021 Lactate [Moles/Vol] 1.1 mmol/L Normal 0.4-1.9 [facility] Comment on above: Performed By: #### L ACT ####[facility] [address] [address]Dr. Lisa Martinez LIPASEon 04-30-2022 Lipase [Catalytic activity/Vol] 53.0 U/L Critically low 73.0-393.0 [facility] Comment on above: Performed By: #### B ASPARAGUS BUNCHER, BMP #### [facility] [address] [place] [address] Dr. Lisa Martinez LIVER PROFILEon 04-30-2022 Albumin [Mass/Vol] 3.4 g/dL Normal 3.4-5.0 [facility] Comment on above: Performed By: #### U RCX #### [facility] [address] [place] [address] Dr. Lisa Martinez Albumin/Globulin [Mass ratio] 0.7 {ratio} Normal [facility] Comment on above: Performed By: #### U RCX #### [facility] [address] [place] [address] Dr. Lisa Martinez ALP [Catalytic activity/Vol] 110 U/L Normal 46-116 [facility] Comment on above: Performed By: #### U RCX #### [facility] [address] [place] [address] Dr. Lisa Martinez ALT [Catalytic activity/Vol] 20 U/L Normal 14-59 [facility] Comment on above: Performed By: #### U RCX #### [facility] [address] [place] [address] Dr. Lisa Martinez AST [Catalytic activity/Vol] 16 U/L Normal 15-37 [facility] Comment on above: Performed By: #### U RCX #### [facility] [address] [place] [address] Dr. Lisa Martinez BILI, CONJUGATED 0.2 mg/dL Normal 0.0-0.2 [facility] Comment on above: Performed By: #### U RCX #### [facility] [address] [place] [address] Dr. Lisa Martinez Bilirubin [Mass/Vol] 0.7 mg/dL Normal 0.2-1.0 [facility] Comment on above: Performed By: #### U RCX #### [facility] [address] [place] [address] Dr. Lisa Martinez Globulin (S) [Mass/Vol] 5.0 g/dL Normal [facility] Comment on above: Performed By: #### U RCX #### [facility] [address] [place] [address] Dr. Lisa Martinez Protein [Mass/Vol] 8.4 g/dL Critically high 6.4-8.2 [facility] Comment on above: Performed By: #### U RCX #### [facility] [address] [place] [address] Dr. Lisa Martinez POINT OF CARE GLUCOSEon 04-09 Glucose [Mass/Vol] 203 mg/dL Critically high 74-106 [facility] Comment on above: Performed By: #### B ASPARAGUS BUNCHER, BMP #### [facility] [address] [place] [address] Dr. Lisa Martinez Glucose [Mass/Vol] 174 mg/dL Critically high 74-106 [facility] Comment on above: Performed By: #### C BC #### [facility] [address] [place] [address] Dr. Lisa Martinez Glucose [Mass/Vol] 149 mg/dL Critically high 74-106 [facility] Comment on above: Performed By: #### B LDCX2 #### [facility] [address] [place] [address] Dr. Lisa Martinez PROF CHEM 8 (BAS METB)on Anion gap [Moles/Vol] 15.3 mmol/L Normal [facility] Comment on above: Performed By: #### C BC #### [facility] [address] [place] [address] Dr. Lisa Martinez Calcium [Mass/Vol] 9.1 mg/dL Normal 8.5-10.1 [facility] Comment on above: Performed By: #### C BC #### [facility] [address] [place] [address] Dr. Lisa Martinez Chloride [Moles/Vol] 98 mmol/L Normal 98-107 [facility] Comment on above: Performed By: #### C BC #### [facility] [address] [place] [address] Dr. Lisa Martinez CO2 [Moles/Vol] 24.4 mmol/L Normal 21.0-32.0 [facility] Comment on above: Performed By: #### C BC #### [facility] [address] [address] [address] Lisa Martinez Creatinine [Mass/Vol] 1.44 mg/dL Critically high 0.55-1.02 [facility] Comment on above: Performed By: #### C BC #### [facility] [address] [address] [address] Lisa Martinez EGFR-AF PRYDEINIG 42 mL/min/1.73m2 Critically low >=60 [facility] Comment on above: Performed By: #### C BC #### [facility] [address] [address] [address] Lisa Martinez EGFR-NON AF PRYDEINIG 35 mL/min/1.73m2 Critically low >=60 [facility] Comment on above: Performed By: #### C BC #### [facility] [address] [address] [address] Lisa Martinez Glucose [Mass/Vol] 225 mg/dL Critically high 74-106 [facility] Comment on above: Performed By: #### C BC #### [facility] [address] [address] [address] Lisa Martinez Potassium [Moles/Vol] 4.7 mmol/L Normal 3.5-5.1 [facility] Comment on above: Performed By: #### C BC #### [facility] [address] [address] [address] Lisa Martinez Sodium [Moles/Vol] 133 mmol/L Critically low 136-145 [facility] Comment on above: Performed By: #### C BC #### [facility] [address] [address] [address] Lisa Martinez Urea nitrogen [Mass/Vol] 37.0 mg/dL Critically high 7.0-18.0 [facility] Comment on above: Performed By: #### C BC #### [facility] [address] [address] [address] Lisa Martinez Urea nitrogen/Creatinin e [Mass ratio] 25.7 mg/mg Normal [facility] Comment on above: Performed By: #### C BC #### [facility] [address] [place] [address] Dr. Lisa Martinez PROTIMEon 04-30-2022 INR Coag (PPP) [Relative time] 1.02 {INR} Normal [facility] Comment on above: Performed By: #### K U #### [facility] [address] [place] [address] Dr. Lisa Martinez INR GUIDELINES SEE BELOW Normal [facility] Comment on above: Result Comment: ANTONY RED INR: 2.0 - 3.0 CONDITIONS NOT LISTED BELOW 2.5 - 3.5 FOR PROSTHETIC HEART VALVE REPLACEMENT 2.5 - 3.5 RECURRENT THROMBOSIS Performed By: #### K U #### [facility] [address] [place] [address] Dr. Lisa Martinez PT Coag (PPP) [Time] 11.0 s Normal 9.0-11.6 [facility] Comment on above: Performed By: #### K U #### [facility] [address] [place] [address] Dr. Lisa Martinez PTTon 04-30-2022 aPTT Coag (Bld) [Time] 27.5 s Normal 22.3-36.2 [facility] Comment on above: Performed By: #### K U #### [facility] [address] [place] [address] Dr. Lisa Martinez TROPONIN, HIGH SENSITIVITYon 04-30-2022 HSTROP 20.0 pg/mL Normal 4.0-51.3 [facility] Comment on above: Result Comment: CUT- OFF POINTS HAVE BEEN ESTABLISHED BASED ON THE FOURTH UNIVERSAL DEFINITIONS OF MYOCARDIAL INFARCTION. THE UPPER REFERENCE LIMIT (URL) OF TROPONIN, DEFINED THE 99TH PERCENTILE OF cTnI DISTRIBUTION IN A REFERENCE POPULATION, HAS BEEN CONFIRMED THE DECISION THRESHOLD FOR PR DIAGNOSIS. Performed By: #### U RCX #### [facility] [address] [place] [address] Dr. Lisa Martinez URINE MICROSCOPIC ONLYon BACTERIA MODERATE Abnormal NONE SEEN [facility] Comment on above: Performed By: #### K U #### [facility] [address] [place] [address] Dr. Lisa Martinez Bacteria identified Cx Nom (U) INDICATED Normal [facility] Comment on above: Performed By: #### K U #### [facility] [address] [place] [address] Dr. Lisa Martinez CAST NONE SEEN Normal NONE SEEN [facility] Comment on above: Performed By: #### K U #### [facility] [address] [place] [address] Dr. Lisa Martinez Crystals LM Nom (Urine sed) NONE SEEN Normal NONE SEEN [facility] Comment on above: Performed By: #### K U #### [facility] [address] [place] [address] Dr. Lisa Martinez Epithelial cells LM Ql (Urine sed) RARE Normal NONE SEEN /RARE [facility] Comment on above: Performed By: #### K U #### [facility] [address] [place] [address] Dr. Lisa Martinez MUCOUS NONE SEEN Normal NONE SEEN [facility] Comment on above: Performed By: #### K U #### [facility] [address] [place] [address] Dr. Lisa Martinez RBC NONE SEEN Abnormal 0-2 [facility] Comment on above: Performed By: #### K U #### [facility] [address] [place] [address] Dr. Lisa Martinez WBC 0-2 Abnormal NONE SEEN [facility] Comment on above: Performed By: #### K U #### [facility] [address] [place] [address] Dr. Lisa Martinez XR CHEST 1 Von [...] by: MEENA HAWKINS Date: 2022-04-30 07:42 Normal [facility] FREE T3on 04-12-2022 FREE T3 2.10 pg/mlL Critically low 2.18-3.98 [facility] Comment on above: Performed By: #### C VDTBH #### [facility] [address] [address] [address] Lisa Martinez FREE T4on 04-12-2022 Free T4 [Mass/Vol] 0.88 ng/dL Normal 0.76-1.46 [facility] Comment on above: Performed By: #### B LDCX2 #### [facility] [address] [place] [address] Dr. Lisa Martinez TSHon 04-12-2022 TSH 5.007 uIU/mL Critically high 0.358-3.740 [facility] Comment on above: Performed By: #### C VDTBH #### [facility] [address] [place] [address] Dr. Lisa Martinez US THYROIDon 04-12-2022 US [...] MEENA HAWKINS Date: 2022-04-12 13:20 Normal [facility] CBC AUTO DIFFon 02-12-2022 BASO # 0.1 103/ul Normal 0.0-0.1 [facility] Comment on above: Performed By: #### K U #### [facility] [address] [address] [address] Lisa Martinez Basophils/100 WBC (Bld) 0.7 % Normal 0.2-2.0 [facility] Comment on above: Performed By: #### K U #### [facility] [address] [address] [address] Lisa Martinez EO # 0.3 103/ul Normal 0.0-0.7 [facility] Comment on above: Performed By: #### K U #### [facility] [address] [place] [address] Dr. Lisa Martinez Eosinophils/100 WBC (Bld) 3.3 % Normal 0.9-7.0 [facility] Comment on above: Performed By: #### K U #### [facility] [address] [place] [address] Dr. Lisa Martinez Erythrocyte distribution width (RBC) [Ratio] 13.0 % Normal 11.0-15.0 [facility] Comment on above: Performed By: #### K U #### [facility] [address] [place] [address] Dr. Lisa Martinez Hematocrit (Bld) [Volume fraction] 34.6 % Critically low 36.0-48.0 [facility] Comment on above: Performed By: #### K U #### [facility] [address] [address] [address] Lisa Martinez Hemoglobin (Bld) [Mass/Vol] 11.1 g/dL Critically low 12.0-16.0 [facility] Comment on above: Performed By: #### K U #### [facility] [address] [address] [address] Lisa Martinez IG # 0.04 10e3/ul Critically high 0.00-0.03 [facility] Comment on above: Performed By: #### K U #### [facility] [address] [place] [address] Dr. Lisa Martinez IG % 0.4 % Normal 0.0-0.5 [facility] Comment on above: Performed By: #### K U #### [facility] [address] [place] [address] Dr. Lisa Martinez LYMPH # 1.0 103/ul Critically low 1.2-3.8 [facility] Comment on above: Performed By: #### K U #### [facility] [address] [place] [address] Dr. Lisa Martinez Lymphocytes/100 WBC (Bld) 10.6 % Critically low 20.5-60.0 [facility] Comment on above: Performed By: #### K U #### [facility] [address] [place] [address] Dr. Lisa Martinez MANUAL DIFF REQ NO Normal [facility] Comment on above: Performed By: #### K U #### [facility] [address] [place] [address] Dr. Lisa Martinez MCH (RBC) [Entitic mass] 31.3 pg Normal 26.7-34.0 [facility] Comment on above: Performed By: #### K U #### [facility] [address] [place] [address] Dr. Lisa Martinez MCHC (RBC) [Mass/Vol] 32.1 g/dL Normal 29.9-35.2 [facility] Comment on above: Performed By: #### K U #### [facility] [address] [place] [address] Dr. Lisa Martinez MCV (RBC) [Entitic vol] 97.5 fL Normal 81.0-99.0 [facility] Comment on above: Performed By: #### K U #### [facility] [address] [place] [address] Dr. Lisa Martinez MONO # 0.9 103/ul Critically high 0.3-0.8 [facility] Comment on above: Performed By: #### K U #### [facility] [address] [place] [address] Dr. Lisa Martinez Monocytes/100 WBC (Bld) 9.5 % Normal 1.7-12.0 [facility] Comment on above: Performed By: #### K U #### [facility] [address] [place] [address] Dr. Lisa Martinez NEUT # 6.9 103/ul Critically high 1.4-6.5 [facility] Comment on above: Performed By: #### K U #### [facility] [address] [place] [address] Dr. Lisa Martinez Neutrophils/100 WBC (Bld) 75.5 % Critically high 43.0-75.0 [facility] Comment on above: Performed By: #### K U #### [facility] [address] [place] [address] Dr. Lisa Martinez Platelet mean volume (Bld) [Entitic vol] 9.9 fL Normal 9.5-13.5 [facility] Comment on above: Performed By: #### K U #### [facility] [address] [place] [address] Dr. Lisa Martinez PLT 255 103/ul Normal 150-450 [facility] Comment on above: Performed By: #### K U #### [facility] [address] [place] [address] Dr. Lisa Martinez RBC 3.55 106/ul Critically low 4.20-5.40 [facility] Comment on above: Performed By: #### K U #### [facility] [address] [place] [address] Dr. Lisa Martinez WBC 9.2 103/ul Normal 4.0-11.0 [facility] Comment on above: Performed By: #### K U #### [facility] [address] [place] [address] Dr. Lisa Martinez CRPon 02-12-2022 CRP 0.7 mg/dL Normal <=1.0 [facility] Comment on above: Performed By: #### B ASPARAGUS BUNCHER, BMP #### [facility] [address] [place] [address] Dr. Lisa Martinez SED RATE WESTERGRENon 2021 SED RATE 56 mm/hr Critically high <=30 [facility] Comment on above: Performed By: #### S EDR ####[facility] [address] [place], [place] [address]GiDr. Lisa Martinez URIC ACID SERUMon 02-12-2022 Urate [Mass/Vol] 9.2 mg/dL Critically high 2.6-6.0 [facility] Comment on above: Performed By: #### B ASPARAGUS BUNCHER, BMP #### [facility] [address] [address] [address] Lisa Martinez XR FOOT LT MIN [...] TYLER MENENDEZ Date: 2022-02-12 13:01 Normal [facility] HEMOGRAM AND PLATELon 2021 Hematocrit (Bld) [Volume fraction] 35.7 % Critically low 36.0-48.0 [facility] Comment on above: Performed By: #### U RCX #### [facility] [address] [address] [address] Lisa Martinez Hemoglobin (Bld) [Mass/Vol] 11.7 g/dL Critically low 12.0-16.0 [facility] Comment on above: Performed By: #### U RCX #### [facility] [address] [address] [address] Lisa Martinez MCH (RBC) [Entitic mass] 31.5 pg Normal 26.7-34.0 [facility] Comment on above: Performed By: #### U RCX #### [facility] [address] [address] [address] Lisa Martinez MCHC (RBC) [Mass/Vol] 32.8 g/dL Normal 29.9-35.2 [facility] Comment on above: Performed By: #### U RCX #### [facility] [address] [address] [address] Lisa Martinez MCV (RBC) [Entitic vol] 96.2 fL Normal 81.0-99.0 [facility] Comment on above: Performed By: #### U RCX #### [facility] [address] [place] [address] Dr. Lisa Martinez PLT 268 103/ul Normal 150-450 [facility] Comment on above: Performed By: #### U RCX #### [facility] [address] [place] [address] Dr. Lisa Martinez RBC 3.71 106/ul Critically low 4.20-5.40 [facility] Comment on above: Performed By: #### U RCX #### [facility] [address] [place] [address] Dr. Lisa Martinez WBC 9.3 103/ul Normal 4.0-11.0 [facility] Comment on above: Performed By: #### U RCX #### [facility] [address] [place] [address] Dr. Lisa Martinez PROF CHEM 8 (BAS METB)on Anion gap [Moles/Vol] 11.2 mmol/L Normal [facility] Comment on above: Performed By: #### C VDTBH #### [facility] [address] [place] [address] Dr. Lisa Martinez Calcium [Mass/Vol] 9.1 mg/dL Normal 8.5-10.1 [facility] Comment on above: Performed By: #### C VDTBH #### [facility] [address] [place] [address] Dr. Lisa Martinez Chloride [Moles/Vol] 104 mmol/L Normal 98-107 [facility] Comment on above: Performed By: #### C VDTBH #### [facility] [address] [place] [address] Dr. Lisa Martinez CO2 [Moles/Vol] 30.6 mmol/L Normal 21.0-32.0 [facility] Comment on above: Performed By: #### C VDTBH #### [facility] [address] [address] [address] Lisa Martinez Creatinine [Mass/Vol] 1.64 mg/dL Critically high 0.55-1.02 [facility] Comment on above: Performed By: #### C VDTBH #### [facility] [address] [address] [address] Lisa Martinez EGFR-AF PRYDEINIG 36 mL/min/1.73m2 Critically low >=60 [facility] Comment on above: Performed By: #### C VDTBH #### [facility] [address] [address] [address] Lisa Martinez EGFR-NON AF PRYDEINIG 30 mL/min/1.73m2 Critically low >=60 [facility] Comment on above: Performed By: #### C VDTBH #### [facility] [address] [address] [address] Lisa Martinez Glucose [Mass/Vol] 61 mg/dL Critically low 74-106 [facility] Comment on above: Performed By: #### C VDTBH #### [facility] [address] [address] [address] Lisa Martinez Potassium [Moles/Vol] 4.8 mmol/L Normal 3.5-5.1 [facility] Comment on above: Performed By: #### C VDTBH #### [facility] [address] [address] [address] Lisa Martinez Sodium [Moles/Vol] 141 mmol/L Normal 136-145 [facility] Comment on above: Performed By: #### C VDTBH #### [facility] [address] [address] [address] Lisa Martinez Urea nitrogen [Mass/Vol] 34.0 mg/dL Critically high 7.0-18.0 [facility] Comment on above: Performed By: #### C VDTBH #### [facility] [address] [address] [address] Lisa Martinez Urea nitrogen/Creatinin e [Mass ratio] 20.7 mg/mg Normal [facility] Comment on above: Performed By: #### C VDTB #### [facility] [address] [place], [place] [address] Dr. Lisa Martinez Cardiovascular Lab Reporton 12-21-2021 Cardiovascular Lab Report [facility] Patient Name: Jenni Villegas [facility] MR #: [id number] Physician: Josefina Weston of [facility] Service Date: 12/20/2021 Division of Birthdate: 1940 Cardiology Room #: Adult Cardiovascular Services [facility] [address] [facility] [place] [address] Cardiovascular Laboratory Report INDICATION: The patient is [...] She was brought to the cardiac cath tech in a fasting state. The right neck area was prepped and draped in usual fashion. Micropuncture technique and ultrasound guidance were used for access in the right internal jugular vein. A 6-Georgian x 11 cm sheath was placed. A 6-Georgian Becker catheter was used for right heart [...] Chao M.D. Date Trans: 12/21/2021 06:38 A/kali [id number] cc: Jasvir León M.D. 3 [facility] [address] Normal [facility] Covid-19 PCR (CVDTBH)on 12-07 SARS-CoV-2 (COVID-19) RNA RACIEL+probe Ql (Unsp spec) Not detected Normal NOT DETECTED [facility] Comment on above: Result Comment: This test is not yet approved or cleared by the [place] FDA. When there are no FDA-approved or cleared tests available, and other criteria are met, FDA can make tests available under an emergency access mechanism called an Emergency Use Authorization (EUA). The EUA for this test is supported by the [employer] Teacher of Health and Human Service's (HHS's) declaration [...] SARS-CoV-2. Performed By: #### K U #### [facility] [address] [place], [place] [address] Dr. Lisa Martinez HEMOGRAM AND PLATELon 2021 Hematocrit (Bld) [Volume fraction] 37.7 % Normal 36.0-48.0 [facility] Comment on above: Performed By: #### H H ####[facility] [address] [address]Dr. Lisa Martinez Hemoglobin (Bld) [Mass/Vol] 11.8 g/dL Critically low 12.0-16.0 [facility] Comment on above: Performed By: #### H H ####[facility] [address] [address]Dr. Lisa Martinez MCH (RBC) [Entitic mass] 30.7 pg Normal 26.7-34.0 [facility] Comment on above: Performed By: #### H H ####[facility] [address] [address]Dr. Lisa Martinez MCHC (RBC) [Mass/Vol] 31.3 g/dL Normal 29.9-35.2 [facility] Comment on above: Performed By: #### H H ####[facility] [address] [address]Dr. Lisa Martinez MCV (RBC) [Entitic vol] 98.2 fL Normal 81.0-99.0 [facility] Comment on above: Performed By: #### H H ####[facility] [address] [address]Dr. Lisa Martinez PLT 238 103/ul Normal 150-450 [facility] Comment on above: Performed By: #### H H ####[facility] [address] [address]Dr. Lisa Martinez RBC 3.84 106/ul Critically low 4.20-5.40 [facility] Comment on above: Performed By: #### H H ####[facility] [address] [address]Dr. Lisa Martinez WBC 8.6 103/ul Normal 4.0-11.0 [facility] Comment on above: Performed By: #### H H ####[facility] [address] [address]Dr. Lisa Martinez PROF CHEM 8 (BAS METB)on Anion gap [Moles/Vol] 13.7 mmol/L Normal [facility] Comment on above: Performed By: #### B MP ####[facility] [address] [address]Dr. Lisa Martinez Calcium [Mass/Vol] 9.1 mg/dL Normal 8.5-10.1 [facility] Comment on above: Performed By: #### B MP ####[facility] [address] [place], [place] [address]Dr. Lisa Martinez Chloride [Moles/Vol] 107 mmol/L Normal 98-107 [facility] Comment on above: Performed By: #### B MP ####[facility] [address] [place], [place] [address]Dr. Lisa Martinez CO2 [Moles/Vol] 26.9 mmol/L Normal 21.0-32.0 [facility] Comment on above: Performed By: #### B MP ####[facility] [address] [place], [place] [address]Dr. Lisa Martinez Creatinine [Mass/Vol] 1.48 mg/dL Critically high 0.55-1.02 [facility] Comment on above: Performed By: #### B MP ####[facility] [address] [place], [place] [address]Dr. Lisa Martinez EGFR-AF PRYDEINIG 41 mL/min/1.73m2 Critically low >=60 [facility] Comment on above: Performed By: #### B MP ####[facility] [address] [place], [place] [address]Dr. Lisa Martinez EGFR-NON AF PRYDEINIG 34 mL/min/1.73m2 Critically low >=60 [facility] Comment on above: Performed By: #### B MP ####[facility] [address] [place], [place] [address]Dr. Lisa Martinez Glucose [Mass/Vol] 161 mg/dL Critically high 74-106 [facility] Comment on above: Performed By: #### B MP ####[facility] [address] [address]Dr. Lisa Martinez Potassium [Moles/Vol] 4.6 mmol/L Normal 3.5-5.1 [facility] Comment on above: Performed By: #### B MP ####[facility] [address] [address]Dr. Lias Martinez Sodium [Moles/Vol] 143 mmol/L Normal 136-145 [facility] Comment on above: Performed By: #### B MP ####[facility] [address] [address]Dr. Lisa Martinez Urea nitrogen [Mass/Vol] 35.0 mg/dL Critically high 7.0-18.0 [facility] Comment on above: Performed By: #### B MP ####[facility] [address] [address]Dr. Lisa Martinez Urea nitrogen/Creatinin e [Mass ratio] 23.6 mg/mg Normal [facility] Comment on above: Performed By: #### B MP ####[facility] [address] [address]Dr. Lisa Martinez Comprehensive Metabolic Pane yesica 08-17-2021 Albumin [Mass/Vol] 4.4 g/dL Normal 3.6-5.1 [facility] Comment on above: Performed By: #### C MP #### [facility] [address] [place], [place] [id number] Albumin/Globulin [Mass ratio] 1.4 {ratio} Normal 1.0-2.5 [facility] Comment on above: Performed By: #### C MP #### [facility] [address] [place], [place] [id number] ALP [Catalytic activity/Vol] 89 U/L Normal 35-119 [facility] Specialist Comment on above: Performed By: #### C MP #### [facility] [address] [place], [place] [id number] ALT [Catalytic activity/Vol] 13 U/L Normal 6-33 [facility] Comment on above: Result Comment: 06/08 Female reference range changed. Performed By: #### C MP #### [facility] [address] [place], [place] [id number] Anion gap [Moles/Vol] 18 mmol/L Normal 12-20 [facility] Comment on above: Result Comment: Effe ctive 07/14/2019 reference range changed. Performed By: #### C MP #### [facility] [address] [place], [place] [id number] AST [Catalytic activity/Vol] 20 U/L Normal 9-34 [facility] Comment on above: Performed By: #### C MP #### [facility] [address] [place], [place] [id number] Bilirubin [Mass/Vol] 0.34 mg/dL Normal 0.30-1.20 [facility] Comment on above: Performed By: #### C MP #### [facility] [address] [place], [place] [id number] BUN/CREA 28 Ratio High 6-22 [facility] Comment on above: Performed By: #### C MP #### [facility] [address] [place], [place] [id number] Calcium [Mass/Vol] 9.8 mg/dL Normal 8.6-10.2 [facility] Comment on above: Performed By: #### C MP #### [facility] [address] [place], [place] [id number] Chloride [Moles/Vol] 106 mmol/L Normal 98-107 [facility] Comment on above: Performed By: #### C MP #### [facility] [address] [place], [place] [id number] CO2 [Moles/Vol] 23 mmol/L Normal 20-31 [facility] Comment on above: Performed By: #### C MP #### [facility] [address] [place], [place] [id number] Creatinine [Mass/Vol] 1.1 mg/dL Normal 0.6-1.4 [facility] Comment on above: Performed By: #### C MP #### [facility] [address] [place], [place] [id number] eGFRAA 59 mL/min/1.73m2 Low >60 [facility] [employer] Comment on above: Performed By: #### C MP #### [facility] [address] [place], [place] [id number] eGFRNAA 49 mL/min/1.73m2 Low >60 [facility] [employer] Comment on above: Performed By: #### C MP #### [facility] [address] [place], [place] [id number] Globulin (S) [Mass/Vol] 3.2 g/dL Normal 1.9-3.7 [facility] [employer] Professor Comment on above: Performed By: #### C MP #### [facility] [address] [place], [place] [id number] Glucose [Mass/Vol] 51 mg/dL Low 65-99 [facility] Gender Studies Professor Comment on above: Result Comment: For FASTING Glucose --- ADA reference ranges: Normal 65-99 mg/dl Prediabetes 100-125 Diabetes >/= 126 Performed By: #### C MP #### [facility] [address] [place], [place] [id number] Potassium [Moles/Vol] 4.5 mmol/L Normal 3.5-5.5 [facility] [employer] Professor Comment on above: Performed By: #### C MP #### [facility] [address] [place], [place] [id number] Protein [Mass/Vol] 7.6 g/dL Normal 6.1-8.1 [facility] [employer] Professor Comment on above: Performed By: #### C MP #### [facility] [address] [place], [place] [id number] Sodium [Moles/Vol] 143 mmol/L Normal 135-146 [facility] [employer] Professor Comment on above: Performed By: #### C MP #### [facility] [address] [place], [place] [id number] Urea nitrogen [Mass/Vol] 31 mg/dL High 7-25 [facility] [employer] Professor Comment on above: Performed By: #### C MP #### [facility] [address] [place], [place] [id number] Complete Blood Counton 08-03 Erythrocyte distribution width (RBC) [Ratio] 13.2 % Normal 11.0-15.0 [facility] Specialist Comment on above: Performed By: #### C BC, TSH, FT3, FT4, CMP #### [facility] [address] [place], [place] [id number] Hematocrit (Bld) [Volume fraction] 36.6 % Normal 35.0-47.0 [facility] Specialist Comment on above: Performed By: #### C BC, TSH, FT3, FT4, CMP #### [facility] [address] [place], [place] [id number] Hemoglobin (Bld) [Mass/Vol] 11.4 g/dL Low 11.6-15.5 [facility] [facility] Specialist Comment on above: Performed By: #### C BC, TSH, FT3, FT4, CMP #### [facility] [address], [place] [id number] MCH (RBC) [Entitic mass] 31.1 pg Normal 27.0-33.0 [facility] Specialist Comment on above: Performed By: #### C BC, TSH, FT3, FT4, CMP #### [facility] [address], [place] [id number] MCHC (RBC) [Mass/Vol] 31.1 g/dL Low 32.0-36.0 [facility] Specialist Comment on above: Performed By: #### C BC, TSH, FT3, FT4, CMP #### [facility] [address], [place] [id number] MCV (RBC) [Entitic vol] 100 fL Normal 80-100 [facility] Gender Studies Professor Comment on above: Performed By: #### C BC, TSH, FT3, FT4, CMP #### [facility] [address], [place] [id number] Platelet mean volume (Bld) [Entitic vol] 10.10 fL Normal 7.50-12.50 [facility] Specialist Comment on above: Performed By: #### C BC, TSH, FT3, FT4, CMP #### [facility] [address], [place] [id number] Platelets (Bld) [#/Vol] 245 10*3/uL Normal 140-400 [facility] Specialist Comment on above: Performed By: #### C BC, TSH, FT3, FT4, CMP #### [facility] [address], [place] [id number] RBC (Bld) [#/Vol] 3.66 10*6/uL Low 3.90-5.20 [facility] Comment on above: Performed By: #### C BC, TSH, FT3, FT4, CMP #### [facility] [address], [place] [id number] RDW-SD 48.1 fL Normal 37.0-50.0 [facility] Specialist Comment on above: Performed By: #### C BC, TSH, FT3, FT4, CMP #### [facility] [address], [place] [id number] WBC (Bld) [#/Vol] 8.7 10*3/uL Normal 3.8-11.0 [facility] Comment on above: Performed By: #### C BC, TSH, FT3, FT4, CMP #### [facility] [address], [place] [id number] Comprehensive Metabolic Pane [facility] 08-03-2021 Albumin [Mass/Vol] 3.9 g/dL Normal 3.6-5.1 [facility] Specialist Comment on above: Performed By: #### C BC, TSH, FT3, FT4, CMP #### [facility] [address], [place] [id number] Albumin/Globulin [Mass ratio] 1.1 {ratio} Normal 1.0-2.5 [facility] Specialist Comment on above: Performed By: #### C BC, TSH, FT3, FT4, CMP #### [facility] [address], [place] [id number] ALP [Catalytic activity/Vol] 105 U/L Normal 35-119 [facility] Specialist Comment on above: Performed By: #### C BC, TSH, FT3, FT4, CMP #### [facility] [address], [place] [id number] ALT [Catalytic activity/Vol] 10 U/L Normal 6-33 [facility] Specialist Comment on above: Result Comment: 06/08 Female reference range changed. Performed By: #### C BC, TSH, FT3, FT4, CMP #### [facility] [address], [place] [id number] Anion gap [Moles/Vol] 20 mmol/L Normal 12-20 [facility] Specialist Comment on above: Result Comment: Effe ctive 07/14/2019 reference range changed. Performed By: #### C BC, TSH, FT3, FT4, CMP #### [facility] [address], [place] [id number] AST [Catalytic activity/Vol] 19 U/L Normal 9-34 [facility] Specialist Comment on above: Performed By: #### C BC, TSH, FT3, FT4, CMP #### [facility] [address], [place] [id number] BUN/CREA 24 Ratio High 6-22 [facility] Comment on above: Performed By: #### C BC, TSH, FT3, FT4, CMP #### [facility] [address], [place] [id number] Calcium [Mass/Vol] 9.6 mg/dL Normal 8.6-10.2 [facility] Comment on above: Performed By: #### C BC, TSH, FT3, FT4, CMP #### [facility] [address], [place] [id number] Chloride [Moles/Vol] 106 mmol/L Normal 98-107 [facility] Specialist Comment on above: Performed By: #### C BC, TSH, FT3, FT4, CMP #### [facility] [address], [place] [id number] CO2 [Moles/Vol] 21 mmol/L Normal 20-31 [facility] Specialist Comment on above: Performed By: #### C BC, TSH, FT3, FT4, CMP #### [facility] [address], [place] [id number] Creatinine [Mass/Vol] 2.6 mg/dL High 0.6-1.4 [facility] Specialist Comment on above: Performed By: #### C BC, TSH, FT3, FT4, CMP #### [facility] [address], [place] [id number] eGFRAA 22 mL/min/1.73m2 Low >60 [facility] Gender Studies Professor Comment on above: Performed By: #### C BC, TSH, FT3, FT4, CMP #### [facility] [address], [place] [id number] eGFRNAA 18 mL/min/1.73m2 Low >60 [facility] Gender Studies Professor Comment on above: Performed By: #### C BC, TSH, FT3, FT4, CMP #### [facility] [address], [place] [id number] Globulin (S) [Mass/Vol] 3.4 g/dL Normal 1.9-3.7 [facility] Specialist Comment on above: Performed By: #### C BC, TSH, FT3, FT4, CMP #### [facility] [address], [place] [id number] Glucose [Mass/Vol] 93 mg/dL Normal 65-99 [facility] Gender Studies Professor Comment on above: Result Comment: For FASTING Glucose --- ADA reference ranges: Normal 65-99 mg/dl Prediabetes 100-125 Diabetes >/= 126 Performed By: #### C BC, TSH, FT3, FT4, CMP #### [facility] [address], [place] [id number] Potassium [Moles/Vol] 6.9 mmol/L Critically high 3.5-5.5 [facility] Gender Studies Professor Comment on above: Result Comment: Repo rt given to Dr León (Ragini) Performed By: #### C BC, TSH, FT3, FT4, CMP #### [facility] [address], [place] [id number] Protein [Mass/Vol] 7.3 g/dL Normal 6.1-8.1 [facility] Gender Studies Professor Comment on above: Performed By: #### C BC, TSH, FT3, FT4, CMP #### [facility] [address], [place] [id number] Sodium [Moles/Vol] 139 mmol/L Normal 135-146 [facility] Gender Studies Professor Comment on above: Performed By: #### C BC, TSH, FT3, FT4, CMP #### [facility] [address], [place] [id number] TBIL <0.3 Normal [facility] Comment on above: Performed By: #### C BC, TSH, FT3, FT4, CMP #### [facility] [address], [place] [id number] Urea nitrogen [Mass/Vol] 62 mg/dL High 7-25 [facility] Comment on above: Performed By: #### C BC, TSH, FT3, FT4, CMP #### [facility] [address], [place] [id number] Free T3on 08-03-2021 FT3 2.05 pg/mL Normal 2.00-4.40 [facility] Comment on above: Performed By: #### C BC, TSH, FT3, FT4, CMP #### [facility] [address], [place] [id number] Free T4on 08-03-2021 Free T4 [Mass/Vol] 0.91 ng/dL Normal 0.80-1.80 [facility] Comment on above: Performed By: #### C BC, TSH, FT3, FT4, CMP #### [facility] [address], [place] [id number] Q - B-TYPE NATRIURETIC (BNP) on 08-03-2021 Natriuretic peptide B (Bld) [Mass/Vol] 283 pg/mL High <100 [facility] Comment on above: Order Comment: [facility] Testing performed at: QPT, [facility], [address] [place] [address], [address] [place] [address], [id number], [place] Faller: Boone Calderón MD [facility] Collection Date/Time: [id number] [facility] Results Received Date/Time: [id number] [facility] Reported Date/Time: Result Comment: BNP levels increase with age in the general population with the highest values seen in individuals greater than 75 years of age. Reference: J. Am. Priya. Cardiol. 2002; 40:976-982. Performed By: #### [id number] #### [facility] Default [address] [place] [id number] TSHon 08-03-2021 TSH 3.450 uIU/mL Normal 0.400-4.500 [facility] io Gender Studies Professor Comment on above: Performed By: #### C BC, TSH, FT3, FT4, CMP #### [facility] [address] [place], [place] [id number] COVID Quick Testingon 2020 Result Negative [facility] Other Quick Flu[facility] 06-06-2021 FLUAV Ab CF (S) [Titer] Negative [facility] Other FLUBV Ab CF (S) [Titer] Negative [facility] Other Vital Signs Date Time Vital Sign Value Performing Clinician Facility 08-07-2023 10:53-0500 Diastolic blood pressure 64 mm[Hg] Kd Macias MD Work Phone: [facility] 08-07-2023 10:53-0500 Heart rate 109 /min Kd Macias MD Work Phone: [facility] 08-07-2023 10:53-0500 Respiratory rate 18 /min Kd Macias MD Work Phone: [facility] 08-07-2023 10:53-0500 SaO2% (BldA) [Mass fraction] 90 % Kd Macias MD Work Phone: [facility] 08-07-2023 10:53-0500 Systolic blood pressure 94 mm[Hg] Kd Macias MD Work Phone: [facility] 06-06-2021 12:45-0500 Body height 157.48 cm Mariam Sylvia Other [facility] Other 06-06-2021 12:45-0500 Body mass index (BMI) [Ratio] 34.75 kg/m2 Mariam Ginty Other [facility] Other 06-06-2021 12:45-0500 Body temperature 96.8 [degF] Mariam Ginty Other [facility] Other 06-06-2021 12:45-0500 Body weight 86.18 kg Mariam Ginty Other [facility] Other 06-06-2021 12:45-0500 Diastolic blood pressure 78 mm[Hg] Mariam Ginty Other [facility] Other 06-06-2021 12:45-0500 SaO2% (BldA) [Mass fraction] 94 % Mariam Ginty Other [facility] Other 06-06-2021 12:45-0500 Systolic blood pressure 131 mm[Hg] Mariam Ginty Other [facility] Other Encounters Encounter Date Encounter Type Care Provider Facility Start: 12-26-2023 End: 12-26-2023 ambulatory JASVIR LEÓN Not Available Start: 12-07-2023 End: 12-07-2023 ambulatory FARZANEH [facility] Start: 10-09-2023 End: 10-09-2023 ambulatory SARAH RODRIGUEZ Not Available Start: 08-07-2023 End: 08-07-2023 ambulatory KD [facility] Start: 08-07-2023 End: 08-07-2023 Subsequent hospital visit by physician Kd Macias MD Work Phone: [facility] Start: 08-02-2023 End: 08-02-2023 ambulatory JASVIR LEÓN Not Available Start: 07-30-2023 End: 07-30-2023 ambulatory DAWOOD PEDROZA Not Available Start: 06-28-2023 End: 06-28-2023 ambulatory ODALYS RUSSO Not Available Start: 05-29-2023 End: 05-29-2023 ambulatory KD [facility] Start: 05-23-2023 End: 05-23-2023 ambulatory JASVIR LEÓN Not Available Start: 05-14-2023 End: 05-14-2023 ambulatory RAMY IBRAHIM [facility] Start: 05-09-2023 ambulatory JASVIR LEÓN [facility] Start: 05-09-2023 End: 05-09-2023 ambulatory KD MACIAS [facility] Start: 12-28-2022 End: 12-28-20[facility] Start: 12-22-2022 End: 12-22-2022 ambulatory BRENT [facility] Start: 12-06-2022 ambulatory BRENT DYAN Facility :[facility] Start: 11-13-2022 End: 11-15-2022 Evaluation and management [...] Encounter for preprocedural laboratory examination GRETTA OMALLEY [facility] Start: 12-20-2021 End: 12-21-2021 ambulatory GRETTA OMALLEY Facility:[facility] Start: 12-16-2021 End: 12-17-2021 ambulatory GRETTA OMALLEY Facility: Start: 12-16-2021 End: 12-17-2021 Encounter for preprocedural laboratory examination GRETTA OMALLEY Facility:[facility] Start: 06-06-2021 End: 06-06-2021 ambulatory Mariam Ward Other [facility] Other Start: 06-06-2021 Office outpatient vi sit 15 minutes Mariam Ward [facility] Plan of Treatment Date Care Activity Detail Author Start: 08-07-2023 End: 08-07-2023 Njx dx/ther agt pvrt facet jt lmbr/sac 1 level LUMBAR MEDIAL BRANCH BLOCK Lumbar spondylosis 08/07/2023 10:37 AM [facility] Start: 08-07-2023 End: 08-07-2023 Njx dx/ther agt pvrt facet jt lmbr/sac 2nd level LUMBAR MEDIAL BRANCH BLOCK Lumbar spondylosis 08/07/2023 10:37 AM [facility] Start: 06-04-2023 Annual Wellness Visi t (Medicare) Annual Wellness Visit (Medicare) [facility] Start: 1999 Respiratory Syncytia l Virus (RSV) or age 60 yrs+ (1 - 1-dose 60+ series) Respiratory Syncytial Virus (RSV) or age 60 yrs+ (1 - 1-dose 60+ series) [facility] Start: 1958 DTaP/Tdap/Td vaccine (1 - Tdap) DTaP/Tdap/Td vaccine (1 - Tdap) [facility] Start: 1951 Depression Screen Depression Screen [facility] Start: 1949 Lipid panel Lipids [facility] Oxygen therapy [[facility] Data Set] Initiate Oxygen Therapy Protocol Respiratory Care Routine As Needed until discontinued starting 08/07/2023 BRANDO Work Phone: Comment on above: As Needed until disc ontinued starting 08/07/2023 Immunizations Immunization Date Immunization Notes Care Provider Chris green 03-31-2014 tetanus toxoid, reduced diphtheria toxoid, and acellular pertussis vaccine, adsorbed Mariam Ward Other [facility] Other 09-01-2013 tetanus toxoid, reduced diphtheria toxoid, and acellular pertussis vaccine, adsorbed Mariam Ward Other [facility] Other Payers Date Payer Category Payer [employer] others) [id number] 2016 [employer] others) [id number] 2016 [employer] others) [id number] 1959 [employer] ( [employer] others) [id number] 1959 Medicare [id number] 1939 Unknown [id number] 2.16.840.1.937382.3.579.2.647 1939 Unknown [id number] 2.16.840.1.071009.3.579.2.593 1939 Unknown [id number] 2.16.840.1.829137.3.579.2.593 1939 Unknown [id number] 2.16.840.1.937357.3.579.2.593 1939 Unknown [id number] 2.16.840.1.571579.3.579.2.593 1939 Unknown [id number] 2.16.840.1.692476.3.579.2.593 1939 Unknown [id number] 2.16.840.1.727865.3.579.2.593 1939 Unknown [id number] 2.16.840.1.709511.3.579.2.593 1939 Unknown [id number] 2.16.840.1.002693.3.579.2.593 1939 Unknown [id number] 2.16.840.1.745673.3.579.2.593 1939 Unknown [id number] 2.840.1.656318.3.579.2.593 1939 Unknown [id number] 2.16.840.1.958826.3.579.2.593 1939 Unknown [id number] 2.840.1.401704.3.579.2.593 1939 Unknown [id number] 2.16.840.1.761045.3.579.2.593 1939 Unknown [id number] 2.840.1.436760.3.579.2.593 1939 Unknown [id number] 2.840.1.580532.3.579.2.754 1939 Unknown [id number] 2.840.1.889176.3.579.2.754 1939 Unknown [id number] 2.840.1.123768.3.579.2.754 1939 Unknown [id number] 2.840.1.718796.3.579.2.754 1939 Unknown [id number] 2.840.1.395877.3.579.2.1259 1939 Unknown [id number] 2.840.1.542156.3.579.2.1259 1939 Unknown [id number] 2.840.1.043395.3.579.2.1259 1939 Unknown [id number] 2.840.1.592572.3.579.2.1259 1939 Unknown [id number] 2.840.1.646530.3.579.2.1259 1939 Unknown [id number] 2.840.1.087203.3.579.2.1259 Medicare [id number] 2.840.1.064191.19 Social History Date Type Detail Facility Start: 05-30-2023 Sex Assigned At N [facility] Other Start: 05-08-2023 Tobacco smoking status NHIS Ex-smoker [facility] Work Phone: End: 07-09-1996 History of tobacco use Current smoker [facility] Work Phone: End: 07-09-1996 History of tobacco use Cigarette Smoker [facility] Work Phone: Start: 05-08-2023 Tobacco use and exposure Smokeless tobacco non-user [facility] Work Phone: Start: 05-30-2023 Alcohol intake Ex-drinker (finding) [facility] Work Phone: Start: 05-30-2023 History of Social function [facility] Work Phone: Start: 05-08-2023 Alcohol Comment social [facility] Work Phone: Start: 1940 Sex Assigned At Not on file W [email or web address] Work Phone: Medical Equipment Procedure Code Equipment Code Equipment Origin al Text Equipment Identifier Dates Kyphon [employer] [id number] Start: 05-09-2023 Comment on above: Description: T12 Ref# [id number] by In Vitro route [id number] Clinical Notes 06-06-2021 to 12-07-2023 Carole Loyola LPN - 08/07/2023 10:57 AM ESTDischarge Instructions Note Date & Type Note Facility 12-07-2023 Note Recently admitted victorina hayes at [facility] for Acute HFrEF and palpitations Coreg was increased to 12.5 mg bid and aldactone 25 mg was added to regime Continue GDMT ASA, lipitor, coreg, digoxin, aldactone, and torsemide 50 mg daily- will add jardiance 10 mg daily to regime- d/w pt to monitor for infections/ skin infection and will repeat BMP in 1-2 weeks to check renal function and electrolytes and she voiced understanding. [facility] II-III Pt is close to euvolemia via assessment today [facility] 12-07-2023 Note aortic valve replace ment with a 23 mm trifecta tissue valve: 2016 Elevated doppler flows noted and severe AO stenosis- will repeat TTE a 6 months to re-evalaute. RTC with Dr Chao D/W pt about red flag symptoms to call 911 and/or office- increased SOB, Palpitations, syncope, chest pain or any concerns and she voiced understanding Continue all medications as prescribed [facility] 12-07-2023 Note Repeat TTE in 6 mirtha hs Pt denied any worsening symptoms since DC from [facility] and diuresis [facility] 12-07-2023 Note Stable, will monitor with routine echocardiogram in 6 months [facility] 12-07-2023 Note [facility] CARDIOLOGY PROGR ESS NOTE HPI: Jenni Villegas is a 83 y.o. female here for routine f/U and review of TTE and ED f/U Patient here for 6 mo follow up aortic and mitral valve stenosis, diastolic heart failure, and permanent afib. She had an echo last month. She presented to [facility] ED a few weeks ago for palpitations. While she was kept for observation, carvedilol was increased and spironolactone was added. These have improved she says. Denies chest pain, SOB, and LE edema. Says she is lightheaded a lot. Daughter said she's very weak. Patient states BP's at home have been within normal range. Review of Systems Cardiovascular: Positive for palpitations (improving). Hematologic/Lymphatic: Bruises/bleeds easily. Musculoskeletal: Positive for arthritis, back pain and muscle weakness. Neurological: Positive for focal weakness, light-headedness, loss of balance, numbness and weakness. All other systems reviewed and are negative. HPI 83-year-old woman. She has history of aortic stenosis status post aortic valve replacement with a 23 mm trifecta tissue valve and surgical exclusion of the left atrial appendage, diastolic heart failure, mild CAD, paroxysmal atrial fibrillation post maze procedure and isolation of the pulmonary veins during the aortic valve replacement surgery. She has history of prior admissions to [facility] with AF/RVR and diastolic heart failure decompensation. She has normal coronary angiogram in 2016. Patient here for 6 mo follow up aortic and mitral valve stenosis, diastolic heart failure, and permanent afib. She had an echo last month. She presented to [facility] ED a few weeks ago for palpitations. While she was kept for observation, carvedilol was increased and spironolactone was added. These have improved she says. Denies chest pain, SOB, and LE edema. Says she is lightheaded a lot. Daughter said she's very weak. Patient states BP's at home have been within normal range. Medical Decision Making MDM Narrative Medical decision making narrative: 83-year-old female to the emergency department with chief complaint of palpitations and shortness of breath. Hypoxic in the 80s on room air. Otherwise stable vitals. History of congestive heart failure similar episodes per patient. She is on oxygen 2 L only at night as needed. Cardec workup is initiated. Patient agrees this plan. Emergency Department [facility] 5 Patient name: JENNI VILLEGAS Laboratory reviewed and noted. Her troponin is within normal limits. Her BNP is significant elevated and the chest x-ray shows some interstitial edema by my read. There is, of a possible mass on the xray. Per discussed with patient it sounds as though this is known. EKG without evidence ischemia. She is Rate controlled on telemetry. A dose of Lasix is given. She'll be admitted for treatment of her congestive heart failure exacerbation and acute hypoxemic respiratory failure. She has new requirement of 2L O2 by NH. Case discussed with hospitalist who agreed to Admit to his service. ED note 11/17/23 HPI HPI - General Adult General Chief complaint: Arrhythmia/Palpitations Stated complaint: FAST HEART RATE Time Seen by Provider: 11/17/23 11:27 Source: patient Mode of arrival: Wheelchair History of Present Illness HPI narrative: 83-year-old female to the emergency department with chief complaint of palpitations. Patient reports throughout the day yesterday she noticed she was short of breath with exertion and had palpitations when she was up and about. Denies any chest pain. Denies any fever, sweats, chills. Denies any cough. Review of Systems Cardiovascular: Positive for palpitations (improving). Hematologic/Lymphatic: Bruises/bleeds easily. Musculoskeletal: Positive for arthritis, back pain and muscle weakness. Neurological: Positive for focal weakness, light-headedness, loss of balance, numbness and weakness. All other systems reviewed and are negative Previous HPI per Dr Chao HPI Jenni is seen in follow-up. She [...] She has history of prior admissions to [facility] with AF/RVR and diastolic heart failure decompensation. [...] stenosis with increased Doppler flows across the biop (more content not included)... [facility] 12-07-2023 Note Patient here for 6 m o follow up aortic and mitral valve stenosis, diastolic heart failure, and permanent afib. She had an echo last month. She presented to [facility] ED a few weeks ago for palpitations. While she was kept for observation, carvedilol was increased and spironolactone was added. These have improved she says. Denies chest pain, SOB, and LE edema. Says she is lightheaded a lot. Daughter said she's very weak. Patient states BP's at home have been within normal range. Review of Systems Cardiovascular: Positive for palpitations (improving). Hematologic/Lymphatic: Bruises/bleeds easily. Musculoskeletal: Positive for arthritis, back pain and muscle weakness. Neurological: Positive for focal weakness, light-headedness, loss of balance, numbness and weakness. All other systems reviewed and are negative. [facility] 12-07-2023 Note Continue to monitor AO valve with repeat TTE in 6 months [facility] 08-07-2023 History of Present illness Narrative Pt [...] vomiting - Difficulty breathing or swallowing CALL [phone] Other Instructions: - You should have a follow-up appointment scheduled already or a follow-up plan in place prior to leaving. - Call the office if you develop any problems or have any questions at: [facility] [phone] or Our 24 hour help line is also available: [phone] ([phone]) If you need refills,or have questions / concerns, outside of our office hours Sunday 8:00 a.m - 4:30 p.m. at [facility], please call [phone] to speak to Constance STEINER or leave a voicemail for her. *Remember to allow at least 48 business hours for medication refill requests. documented in this encounter [facility] Phone: 05-14-2023 Note Cardiology Clinic No te Subjective Jenni Villegas is a 83 y.o. year old [...] of iron deficiency Heart valve transplanted Hyperthyroidism [facility] current use of anticoagulant therapy Mixed anxiety [...] Review of Syste (more content not included)... [facility] 05-14-2023 Note Patient here for 6 m [...] All other systems reviewed and are negative. 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 [...] respiratory distress. Br (more content not included)... [facility] 12-22-2022 Note Patient: Jenni Liao se Procedure Information Date/Time: 12/22/22 1230 Procedure: TRANSESOPHAGEAL ECHO (FARA) Location: [facility] Vascular Lab Clinical information reviewed: Physical Exam Airway Mallampati: II TM distance: >3 FB Neck ROM: full Cardiovascular Dental Pulmonary Abdominal Anesthesia Plan ASA 2 Anesthetic plan and risks discussed with patient. Use of blood products discussed with patient who. Plan discussed with attending. Additional Equipment Requests Yanet Rabago MD Manager Proposal - PGY4 [facility] 06-08-2022 Note HISTORY AND PHYSICAL EXAMINATION Date:06/07/2022 [...] go forward with her elective procedure. [facility] 06-08-2022 Note OPERATIVE NOTE OPERATION DATE: 06/08/2022 [...] ensuring mobility, phacoemulsification was performed in a [id number]-[id number]-type fashion. After all nuclear material had been [...] the following day for postoperative care. [facility] 04-13-2022 Note OPERATIVE NOTE OPERATION DATE: 04/13/2022 [...] ensuring mobility, phacoemulsification was performed in a olnwnmi-bvp-mjysmg-type fashion. After all nuclear material had been [...] the following day for postoperative care. [facility] 04-13-2022 Note HISTORY AND PHYSICAL EXAMINATION Date:04/12/2022 [...] go forward with her elective procedure. [facility] 06-06-2021 Evaluation note Encounter Date Diagnosis Assessment [...] Patient care instructions given in writting by [facility] document [employer] Other Evaluation note* Diagnosis Lumbar spondylosis- Primary Lumbosacral spondylosis without myelopathy documented in this encounter BRANDO Meyer Phone: History general Narrative - Reported* Type [...] see above list Hospitalization History chf x3 [employer] Other Summary Purpose Family History No Family [...] section and content) DATE CREATED AUTHOR 08/19/2021 [facility] dical Specialist DATE CREATED AUTHOR AUTHOR'S ORGANIZ ATION 12/26/2021 [facility] DATE CREATED AUTHOR AUTHOR'S ORGANIZ ATION 12/15/2022 [facility] DATE CREATED AUTHOR AUTHOR'S ORGANIZ ATION 05/18/2023 [facility] DATE CREATED AUTHOR AUTHOR'S ORGANIZ ATION 08/08/2023 [facility] DATE CREATED AUTHOR AUTHOR'S ORGANIZ ATION 12/08/2023 [facility] DATE CREATED AUTHOR AUTHOR'S ORGANIZ ATION 12/28/2023 [facility] dical Specialists EPIC REASON FOR VISIT (unrecogniz ed section and content) Specialty Diagnoses / Procedures Referred By Williams t Referred To Contact Diagnoses Lumbar spondylosis Lumbar spondylosis [M47.816] Procedures MS NJX DX/THER AGT PVRT FACET JT LMBR/SAC 1 LEVEL MS NJX DX/THER AGT PVRT FACET JT LMBR/SAC 2ND LEVEL B/L LUMBAR MEDIAL BRANCH BLOCK L3 L4 L5 B/L LUMBAR MEDIAL BRANCH BLOCK L3 L4 L5 Kd Macias MD [address] [place] [address] [facility] Phone: [phone] Referral ID Status Reason Start Date Expiration Date Visits Re quested Visits Authorized [id number] 1 1 PRN Active and Recently Administ ered Medications (unrecognized section and content) Medication Order 08/05/2023 08/06/2023 08/07/2023 BUPivacaine (PF) (MARCAINE) 0.5 % injection (CANCELED) PRN, Starting on Sun08/07/23 at 0957, Until Sun08/07/23 at 1048, Intra-op 0957 (Given - Provid er: Kd Macias MD - Comment: Dose amount per Dr. Macias) lidocaine 1% (buffered) injection (CANCELED) PRN, Starting on Sun08/07/23 at 0957, Until Tu08/07/23 at 1048, Intra-op 0957 (Given - Provid er: Kd Macias MD - Comment: Dose amount per Dr. Macias) Care Teams (unrecognized sec tion and content) Store Receiver Relationship Specialty Start Date End Date Jasvir León MD [address] [facility] [address] [place] [address] PCP - General Internal Medicine 05/07/23 FOR RECORDS PERTAINING TO PATIENTS WHO ARE [...] BE BASED ON THE PRIMARY CLINICAL RECORDS. [employer] provides no warranty or guarantee of the accuracy or completeness of information in this document.
[2024-01-03 11:16] LABS: Anion Gap 13.3; BUN Creatinine Ratio 22.7; Calcium 8.9 mg/dL (8.5-10.1); Carbon Dioxide 29.2 mmol/L (21.0-32.0); Chloride 101 mmol/L (98-107); Estimated GFR (African America 31 (>=60); Estimated GFR (Non-African Ame 26 (>=60); Glucose 144 mg/dL (74-106); Potassium 3.5 mmol/L (3.5-5.1); Sodium 140 mmol/L (136-145)
== END 2024-01-03 10:41 | disposition home or self-care (01) ==
LOC: LAB 10:43
PROVIDERS: PCP Internal Medicine; Visit Provider Nurse Practitioner
DX: I50.23 Acute on chronic systolic (congestive) heart failure (principal)
CPT/HCPCS: 36415; 80048

== ENCOUNTER 2024-04-11 15:33 | Observation (INO) | payer MEDICARE, OTHER, SELFPAY ==
[2024-04-11] VITALS (14 sets, daily range): BP systolic 127–158; BP diastolic 79–86; PULSE 68–99; TEMP 36.4–36.8; O2SAT 83–95; BMI 32.1; BMI 27.5
--- OUTSIDE RECORDS SUMMARY | 2024-04-11 15:39 | XMS_ITS | CCD ---
Author Organization [facility] Care Team Providers Care Technician Anatomic Pathology Name Role Phone GRETTA OMALLEY Admitting Unavailable [...] Consulting Unavailable SHAIKH Selam SCHMIDT Consulting Unavailable EJNNY MARQUEZ Consulting Unavailable DR JASVIR LEÓN Primary Care Unavailable NICK ., DR CORNEJO Consulting Unavailable NICK ., DR CORNEJO Attending Unavailable NICK ., DR CORNEJO Admitting Unavailable TYLER MENENDEZ Consulting Unavailable CALLI ., DR SHAYY Azul Consulting Unavailable CALLI ., DR SHAYY Azul Attending Unavailable KHARI, DR ISRAEL Primary Care Unavailable CALLI ., DR SHAYY Auzl Admitting Unavailable GALO, DR TONIA Mendiola Consulting [...] Unavailable YRIS, FARZANEH Admitting Unavailable LEÓN, DR SIRAEL Primary Care Unavailable WEST, DR MEENA Boucher Consulting Unavailable VERNA, AHMAD Attending Unavailable VERNA, AHMAD Admitting Unavailable VERNA, AHMAD Consulting Unavailable Jasvir León MD Primary Care Provider BAHKD Judd Admitting Unavailable BAHKD Judd Attending Unavailable JASVIR LEÓN Primary Care Unavailable BAHKD Judd Attending Unavailable JASVIR LEÓN Primary Care Unavailable BAHBinta, KD M Admitting Unavailable JASVIR LEÓN Primary Care Unavailable BAHKD Judd Attending Unavailable JASVIR LEÓN Primary Care Unavailable BAHN, KD M Admitting Unavailable JOSEFINA CHAO Attending Unavailable YRIS, FARZANEH Attending Unavailable RAMY IBRAHIM Attending Unavailable JASVIR LEÓN Attending Unavailable DAWOOD PEDROZA Attending Unavailable RALF FERGUSON Referring Unavailable JASVIR LEÓN Attending Unavailable SARAH RODRIGUEZ Attending Unavailable JASVIR LEÓN Attending Unavailable JASVIR LEÓN Attending Unavailable ODALYS RUSSO Attending Unavailable JASVIR LEÓN Referring Unavailable Allergies Allergy Classification Reported Allergen(s) Allergy Type Date of Onset Reaction(s) Facility (4 sources) Codeine; Translations: [CODEINE] Drug Allergy 4 The [facility] Repository (4 sources) Penicillins; Translations: [PENICILLINS] Drug allergy (disorder) 2 [facility] Repository (1 source) penicillian Propensity to adverse reactions rash [facility] [employer] Other (1 source) codiene Propensity to adverse reactions abdominal pain [facility] [employer] Other (2 sources) sacubitril / valsartan Drug Allergy 2 [facility] Repository (1 source) Codeine Drug Allergy 3 Other (See Comments) [place] (1 source) Penicillins Propensity to adverse reactions to drug 3 Rash [facility] Work Phone: (2 sources) sacubitril / valsartan; Translations: [SACUBITRIL-ARJUN SARTAN] Drug Allergy 2 Rash [facility]AGNIESZKAOT Medications Current Medications Medication Drug Class(es) Dates [...] UNSPECIFIED] Onset: 3 Other aftercare (1 source) 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; 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] Onset: 3 Episodic Other aftercare (1 source) skilled nursing (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 of aspirin; Translations: [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 PORTER CURRENT USE OF ASPIRIN] Onset: 3 Episodic Other aftercare (1 source) Other roasterman (current) drug therapy; Translations: [OTH 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 PORTER CURRENT DRUG THERAPY] Onset: 3 Episodic Other [...] atrial fibrillation; Translations: [Permanent atrial fibrillation] Onset: 4 Urinary tract infections (1 source) Urinary tract [...] Test Name Value Interpretation Reference Range Facility Office Visiton 01-07-2024 Follow-up visit [id number] Jenni Villegas 1940 F Date Provider Department Center 01/07/2024 JOSEFINA STEIN Family History Problem Relation Age of Onset Diabetes Father Heart failure Father Other Other Family Status - Relation Status Age at Father Other Level of Service:76378 OK OFFICE/OUTPATIENT ESTABLISHED MOD MDM 30 MIN [facility] 37on 12-07-2023 37 Have blood drawn in [...] pillows than normal or in recliner. Normal [facility] Office Visiton 12-07-2023 Follow-up visit [id number] Jenni Villegas 1940 F Date Provider Department Center 12/07/2023 FARZANEH PERSAUD Family History Problem Relation Age of Onset Diabetes Father Heart failure Father Other Other Family Status - Relation Status Age at Father Other Level of Service:74076 [place] OFFICE/OUTPATIENT ESTABLISHED MOD MDM 30 MIN [facility] 36on 11-16-2023 36 Regarding echo performed on 10/23/2023: MD Mariaa Fernandes MA; Farzaneh Arndt NP [place], she sees you soon, echo is consistent with volume overload, I could consider intensification of diuretics before determining the need for FARA Normal [facility] XR COMPARISON OF OUTSIDE HIRAL MSon 08-07-2023 XR COMPARISON OF OUTSIDE FILMS RADRPT There is no result for this study. This is a placeholder for comparison films only. Final result Normal [facility] XR COMPARISON OF OUTSIDE HIRAL MSon 05-29-2023 XR COMPARISON OF OUTSIDE FILMS RADRPT There is no result for this study. This is a placeholder for comparison films only. Final result Normal [facility] Office Visiton 05-14-2023 Follow-up visit [id number] Jenni Villegas 1940 F Date Provider Department Center 05/14/2023 [id number] IBRAHIM CARD [facility] Family History Problem Relation Age of Onset Diabetes Father Heart failure Father Other Other Family Status - Relation Status Age at Father Other Level of Service:37032 OK OFFICE/OUTPATIENT ESTABLISHED MOD MDM 30-39 MIN Normal [facility] FLUORO FOR SURGICAL PROCEDUR ESon 05-09-2023 FLUORO FOR SURGICAL PROCEDURES RADRPT Radiology exam is complete. No Radiologist dictation. Please follow up with ordering provider. Final result Normal [facility] SURGICALon 05-09-2023 SURGICAL [place] [facility] JENNI VILLEGAS [id number] Assoc. Page 1 of [address] [place] [address] PROC: 05/09/2023 [place] RECV: 05/11/[address] RPTD: 05/16/2023 [place] [address] LOC: [facility] ACCT: [id number] SEX: F : 1940 AGE: 83 Y [...] negative. The CD138 demonstrates scattered plasma cells. [place] and lambda surface immunoglobulin light chain LALO is performed with adequate controls. The kappa and lambda stains demonstrate a polytypic plasma cell population. Overall, there is no evidence of an atypical infiltrate. Malignancy is not identified. *This test was developed and its performance characteristics determined by [facility]. It has not been cleared or approved by the U.S. Food and Drug Administration. Pursuant to the requirements of CLIA, this laboratory has established and verified the test's accuracy and precision. Additional information about this type of test is available upon request. [id number] x [phone] [id number] INDY PLATT M.D., F.C.A.P. 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 Page 1 of 1\X0D0A\[address]\X0D0A\[place] [address]\X0D0A\ PROC: 05/09/2023\X0D0A\[facility] RECV: 05/11/2023\X0D0A\[address] RPTD: 05/16/2023\X0D0A\[place] [address]\X0D0A\ LOC: [facility]\X0D0A\ ACCT: [id number] SEX: F\X0D0A\ : 1940 AGE: 83 Y\X0D0A\X0D0A\ [...] negative. The CD138 demonstrates scattered plasma cells. [place] and\X0D0A\lambda surface immunoglobulin light chain LALO is performed with\X0D0A\adequate controls. The kappa and lambda stains demonstrate a polytypic\X0D0A\plasma cell population. Overall, there is no evidence of an atypical\X0D0A\infiltrate. Malignancy is not identified.\X0D0A\X0D0A\*This test was developed and its performance characteristics determined\X0D0A\by [facility]. It has not been cleared or\X0D0A\approved by the U.S. Food and Drug Administration. Pursuant to the\X0D0A\requirements of CLIA, this laboratory has established and verified the\X0D0A\test's accuracy and precision. Additional information about this type\X0D0A\of test is available upon request.\X0D0A\X0D0A\80081\X0D0A\23411\X0D0A\45051 x 3\X0D0A\97550\X0D0A\14504\X0D0A\X0D0A\X0D0A\X0D0A\ \X0D0A\ INDY PLATT M.D., F.C.A.P.\X0D0A\X0D0A\X0D0A\[facility]/ [facility] Printed on: 05/16/2023\X0D0A\[address]\X0D0A\[place], [place] [address]\X0D0A\Original print date: 05/16/2023 Performed By: #### 1 [id number] #### [facility] See Report 36on 02-04-2023 36 I reviewed labs from 02/02/2023. Please have her increased torsemide further to a total 60 mg daily (she can do 30 mg bid) and get same repeat labs in 2-3 weeks. Also please make sure she follows with Dr León regarding her low glucose. Normal [facility] Telephoneon 02-04-2023 Telephone [id number] Jenni Villegas 1940 F Date Provider Department Center 02/04/2023 Rocky-JOSEFINA CHAO [facility] Family History Problem Relation Age of Onset Diabetes Father Heart failure Father Other Other Family Status - Relation Status Age at Father Other Normal [facility] DIGOXINon 12-06-2022 DIG <0.2 Critically low 0.9-2.0 [facility] Comment on above: Performed By: #### B LDCX2 #### [facility] [address] [address] [address] Lisa Martinez PROF CHEM 8 (BAS METB)on Anion gap [Moles/Vol] 9.6 mmol/L Normal [facility] Comment on above: Performed By: #### T SHRFT4, BMP ####[facility] [address] [address]DrIngrid Martinez Calcium [Mass/Vol] 9.0 mg/dL Normal 8.5-10.1 [facility] Comment on above: Performed By: #### T SHRFT4, BMP ####[facility] [address] [address]DrIngrid Martinez Chloride [Moles/Vol] 103 mmol/L Normal 98-107 [facility] Comment on above: Performed By: #### T SUPRIYAFT4, BMP ####[facility] [address] [address]Dr. Lisa Martinez CO2 [Moles/Vol] 33.4 mmol/L Critically high 21.0-32.0 [facility] Comment on above: Performed By: #### T SHRFT4, BMP ####[facility] [address] [address]Dr. Lisa Martinez Creatinine [Mass/Vol] 1.69 mg/dL Critically high 0.55-1.02 [facility] Comment on above: Performed By: #### T ALFRED4, BMP ####[facility] [address] [address]Dr. Lisa Martinez EGFR-AF SAMMARINESE 35 mL/min/1.73m2 Critically low >=60 [facility] Comment on above: Performed By: #### T ALFRED4, BMP ####[facility] [address] [place], [place] [address]Dr. Lisa Martinez EGFR-NON AF SAMMARINESE 29 mL/min/1.73m2 Critically low >=60 [facility] Comment on above: Performed By: #### T KELLEY, BMP ####[facility] [address] [place], [place] [address]Dr. Lisa Martinez Glucose [Mass/Vol] 72 mg/dL Critically low 74-106 [facility] Comment on above: Performed By: #### T KELLEY, BMP ####[facility] [address] [place], [place] [address]Dr. Lisa Martinez Potassium [Moles/Vol] 4.0 mmol/L Normal 3.5-5.1 [facility] Comment on above: Performed By: #### T ALFRED4, BMP ####[facility] [address] [place], [place] [address]Dr. Lisa Martinez Sodium [Moles/Vol] 142 mmol/L Normal 136-145 [facility] Comment on above: Performed By: #### T ALFRED4, BMP ####[facility] [address] [place], [place] [address]Dr. Lisa Martinez Urea nitrogen [Mass/Vol] 42.0 mg/dL Critically high 7.0-18.0 [facility] Comment on above: Performed By: #### T ALFRED4, BMP ####[facility] [address] [place], [place] [address]Dr. Fabianachapis Martinez Urea nitrogen/Creatinin e [Mass ratio] 24.9 mg/mg Normal [facility] Comment on above: Performed By: #### T SHRFT4, BMP ####[facility] [address] [address]DrIngrid Martinez TSH W/ REFLEX TO FT4on 12-06 TSH 2.427 uIU/mL Normal 0.358-3.740 [facility] Comment on above: Performed By: #### T SHRFT4, BMP ####[facility] [address] [address]Dr. Lisa Martinez BNPon 11-15-2022 Natriuretic peptide B (Bld) [Mass/Vol] 6134.0 pg/mL Critically high <=1,800.0 [facility] Comment on above: Performed By: #### B CNMT, CMP, MG ####[facility] [address] [address]DrIngrid Martinez CBC AUTO DIFFon 11-15-2022 BASO # 0.0 103/ul Normal 0.0-0.1 [facility] Comment on above: Performed By: #### K U #### [facility] [address] [address] [address] Lisa Martinez Basophils/100 WBC (Bld) 0.6 % Normal 0.2-2.0 [facility] Comment on above: Performed By: #### K U #### [facility] [address] [address] [address] Lisa Martinez EO # 0.2 103/ul Normal 0.0-0.7 [facility] Comment on above: Performed By: #### K U #### [facility] [address] [address] [address] Lisa Martinez Eosinophils/100 WBC (Bld) 2.9 % Normal 0.9-7.0 [facility] Comment on above: Performed By: #### K U #### [facility] [address] [address] [address] Lisa Martinez Erythrocyte distribution width (RBC) [Ratio] 14.9 % Normal 11.0-15.0 [facility] Comment on above: Performed By: #### K U #### [facility] [address] [address] [address] Lisa Martinez Hematocrit (Bld) [Volume fraction] 31.9 % Critically low 36.0-48.0 [facility] Comment on above: Performed By: #### K U #### [facility] [address] [address] [address] Lisa Martinez Hemoglobin (Bld) [Mass/Vol] 9.8 g/dL Critically low 12.0-16.0 [facility] Comment on above: Performed By: #### K U #### [facility] [address] [place] [address] Dr. Lisa Martinez IG # 0.02 10e3/ul Normal 0.00-0.03 [facility] Comment on above: Performed By: #### K U #### [facility] [address] [place] [address] Dr. Lisa Martinez IG % 0.3 % Normal 0.0-0.5 [facility] Comment on above: Performed By: #### K U #### [facility] [address] [place] [address] Dr. Lisa Martinez LYMPH # 0.7 103/ul Critically low 1.2-3.8 [facility] Comment on above: Performed By: #### K U #### [facility] [address] [place] [address] Dr. Lisa Martinez Lymphocytes/100 WBC (Bld) 10.9 % Critically low 20.5-60.0 [facility] Comment on above: Performed By: #### K U #### [facility] [address] [place] [address] Dr. Lisa Martinez MANUAL DIFF REQ NO Normal [facility] Comment on above: Performed By: #### K U #### [facility] [address] [place] [address] Dr. Lisa Martinez MCH (RBC) [Entitic mass] 29.1 pg Normal 26.7-34.0 [facility] Comment on above: Performed By: #### K U #### [facility] [address] [address] [address] Lisa Martinez MCHC (RBC) [Mass/Vol] 30.7 g/dL Normal 29.9-35.2 [facility] Comment on above: Performed By: #### K U #### [facility] [address] [place] [address] Dr. Lisa Martinez MCV (RBC) [Entitic vol] 94.7 fL Normal 81.0-99.0 [facility] Comment on above: Performed By: #### K U #### [facility] [address] [place] [address] Dr. Lisa Martinez MONO # 0.8 103/ul Normal 0.3-0.8 [facility] Comment on above: Performed By: #### K U #### [facility] [address] [place] [address] Dr. Lisa Martinez Monocytes/100 WBC (Bld) 12.2 % Critically high 1.7-12.0 [facility] Comment on above: Performed By: #### K U #### [facility] [address] [place] [address] Dr. Lisa Martinez NEUT # 4.6 103/ul Normal 1.4-6.5 [facility] Comment on above: Performed By: #### K U #### [facility] [address] [place] [address] Dr. Lisa Martinez Neutrophils/100 WBC (Bld) 73.1 % Normal 43.0-75.0 [facility] Comment on above: Performed By: #### K U #### [facility] [address] [place] [address] Dr. Lisa Martinez Platelet mean volume (Bld) [Entitic vol] 10.2 fL Normal 9.5-13.5 [facility] Comment on above: Performed By: #### K U #### [facility] [address] [place] [address] Dr. Lisa Martinez PLT 186 103/ul Normal 150-450 [facility] Comment on above: Performed By: #### K U #### [facility] [address] [place] [address] Dr. Lisa Martinez RBC 3.37 106/ul Critically low 4.20-5.40 [facility] Comment on above: Performed By: #### K U #### [facility] [address] [place] [address] Dr. Lisa Martinez WBC 6.3 103/ul Normal 4.0-11.0 [facility] Comment on above: Performed By: #### K U #### [facility] [address] [place] [address] Dr. Lisa Martinez CHLORIDE URINE RANDOMon 11-06 Chloride, Urine 126 mmol/L Normal Not Estab. [facility] Comment on above: Performed By: #### B LDCX2 #### [facility] [address] [place] [address] Dr. Lisa Martinez CULTURE URINEon 11-15-2022 CULTURE [...] F Trimethoprim/Sulfametho xazole <=20 S F Normal [facility] Comment on above: Performed By: #### U RCX #### [facility] [address] [place] [address] Dr. Lisa Martinez DIGOXINon 11-15-2022 DIG 0.3 ng/mL Critically low 0.9-2.0 [facility] Comment on above: Performed By: #### B CNMT, BMP #### [facility] [address] [place] [address] Dr. Lisa Martinez MAGNESIUMon 11-15-2022 Magnesium [Mass/Vol] 2.2 mg/dL Normal 1.8-2.4 [facility] Comment on above: Performed By: #### B CNMT, CMP, MG ####[facility] [address] [address]Dr. Lisa Martinez POINT OF CARE GLUCOSEon 11-06 Glucose [Mass/Vol] 164 mg/dL Critically high 74-106 [facility] Comment on above: Performed By: #### C BC #### [facility] [address] [address] [address] Lisa Martinez PROF 14(COMP METB)on 023 Albumin [Mass/Vol] 3.3 g/dL Critically low 3.4-5.0 [facility] Comment on above: Performed By: #### B CNMT, CMP, MG ####[facility] [address] [address]Dr. Lisa Martinez Albumin/Globulin [Mass ratio] 0.7 {ratio} Normal [facility] Comment on above: Performed By: #### B CNMT, CMP, MG ####[facility] [address] [address]Dr. Lisa Martinez ALP [Catalytic activity/Vol] 75 U/L Normal 46-116 [facility] Comment on above: Performed By: #### B CNMT, CMP, MG ####[facility] [address] [address]Dr. Lisa Martinez ALT [Catalytic activity/Vol] 14 U/L Normal 14-59 [facility] Comment on above: Performed By: #### B CNMT, CMP, MG ####[facility] [address] [address]Dr. Lisa Martinez Anion gap [Moles/Vol] 11.1 mmol/L Normal [facility] Comment on above: Performed By: #### B CNMT, CMP, MG ####[facility] [address] [address]Dr. Lisa Martinez AST [Catalytic activity/Vol] 14 U/L Critically low 15-37 [facility] Comment on above: Performed By: #### B CNMT, CMP, MG ####[facility] [address] [address]Dr. Lisa Martinez Bilirubin [Mass/Vol] 0.9 mg/dL Normal 0.2-1.0 [facility] Comment on above: Performed By: #### B CNMT, CMP, MG ####[facility] [address] [address]Dr. Lisa Martinez Calcium [Mass/Vol] 9.1 mg/dL Normal 8.5-10.1 [facility] Comment on above: Performed By: #### B CNMT, CMP, MG ####[facility] [address] [address]Dr. Lisa Martinez Chloride [Moles/Vol] 100 mmol/L Normal 98-107 [facility] Comment on above: Performed By: #### B CNMT, CMP, MG ####[facility] [address] [address]Dr. Lisa Martinez CO2 [Moles/Vol] 32.6 mmol/L Critically high 21.0-32.0 [facility] Comment on above: Performed By: #### B CNMT, CMP, MG ####[facility] [address] [address]Dr. Lisa Martinez Creatinine [Mass/Vol] 2.65 mg/dL Critically high 0.55-1.02 [facility] Comment on above: Performed By: #### B CNMT, CMP, MG ####[facility] [address] [place], [place] [address]Dr. Lisa Martinez EGFR-AF SAMMARINESE 21 mL/min/1.73m2 Critically low >=60 [facility] Comment on above: Performed By: #### B CNMT, CMP, MG ####[facility] [address] [place], [place] [address]Dr. Lisa Martinez EGFR-NON AF SAMMARINESE 17 mL/min/1.73m2 Critically low >=60 [facility] Comment on above: Performed By: #### B CNMT, CMP, MG ####[facility] [address] [address]Dr. Lisa Martinez Globulin (S) [Mass/Vol] 4.7 g/dL Normal [facility] Comment on above: Performed By: #### B CNMT, CMP, MG ####[facility] [address] [address]Dr. Lisa Martinez Glucose [Mass/Vol] 131 mg/dL Critically high 74-106 [facility] Comment on above: Performed By: #### B CNMT, CMP, MG ####[facility] [address] [address]Dr. Lisa Martinez Potassium [Moles/Vol] 3.7 mmol/L Normal 3.5-5.1 [facility] Comment on above: Performed By: #### B CNMT, CMP, MG ####[facility] [address] [place], [place] [address]Dr. Lisa Martinez Protein [Mass/Vol] 8.0 g/dL Normal 6.4-8.2 [facility] Comment on above: Performed By: #### B CNMT, CMP, MG ####[facility] [address] [place], [place] [address]Dr. Lisa Martinez Sodium [Moles/Vol] 140 mmol/L Normal 136-145 [facility] Comment on above: Performed By: #### B CNMT, CMP, MG ####[facility] [address] [address]Dr. Lisa Martinez Urea nitrogen [Mass/Vol] 66.0 mg/dL Critically high 7.0-18.0 [facility] Comment on above: Performed By: #### B CNMT, CMP, MG ####[facility] [address] [address]Dr. Lisa Martinez Urea nitrogen/Creatinin e [Mass ratio] 24.9 mg/mg Normal [facility] Comment on above: Performed By: #### B CNMT, CMP, MG ####[facility] [address] [address]Dr. Lisa Martinez UREA NITROGEN, RANDOM URon 0 11-15-2022 Urea Nitrogen, Urine 165 mg/dL Normal Not Estab. [facility] Comment on above: Performed By: #### U NR ####[facility] [address] [address]Dr. Lisa Martinez BNPon 11-14-2022 Natriuretic peptide B (Bld) [Mass/Vol] 8525.0 pg/mL Critically high <=1,800.0 [facility] Comment on above: Performed By: #### B CNMT ####[facility] [address] [address]Dr. Lisa Martinez CBC AUTO DIFFon 11-14-2022 BASO # 0.0 103/ul Normal 0.0-0.1 [facility] Comment on above: Performed By: #### C VDTBH #### [facility] [address] [place] [address] Dr. Lisa Martinez Basophils/100 WBC (Bld) 0.5 % Normal 0.2-2.0 [facility] Comment on above: Performed By: #### C VDTBH #### [facility] [address] [place] [address] Dr. Lisa Martinez EO # 0.2 103/ul Normal 0.0-0.7 [facility] Comment on above: Performed By: #### C VDTBH #### [facility] [address] [place] [address] Dr. Lisa Martinez Eosinophils/100 WBC (Bld) 3.4 % Normal 0.9-7.0 [facility] Comment on above: Performed By: #### C VDTBH #### [facility] [address] [place] [address] Dr. Lisa Martinez Erythrocyte distribution width (RBC) [Ratio] 14.9 % Normal 11.0-15.0 [facility] [facility] Comment on above: Performed By: #### C VDTBH #### [facility] [address] [place] [address] Dr. Lisa Martinez Hematocrit (Bld) [Volume fraction] 31.3 % Critically low 36.0-48.0 [facility] Comment on above: Performed By: #### C VDTBH #### [facility] [address] [place] [address] Dr. Lisa Martinez Hemoglobin (Bld) [Mass/Vol] 9.4 g/dL Critically low 12.0-16.0 [facility] Comment on above: Performed By: #### C VDTBH #### [facility] [address] [place] [address] Dr. Lisa Martinez IG # 0.01 10e3/ul Normal 0.00-0.03 [facility] Comment on above: Performed By: #### C VDTBH #### [facility] [address] [place] [address] Dr. Lisa Martinez IG % 0.2 % Normal 0.0-0.5 [facility] Comment on above: Performed By: #### C VDTBH #### [facility] [address] [place] [address] Dr. Lisa Martinez LYMPH # 0.9 103/ul Critically low 1.2-3.8 [facility] Comment on above: Performed By: #### C VDTBH #### [facility] [address] [place] [address] Dr. Lisa Martinez Lymphocytes/100 WBC (Bld) 15.2 % Critically low 20.5-60.0 [facility] Comment on above: Performed By: #### C VDTBH #### [facility] [address] [place] [address] Dr. Lisa Martinez MANUAL DIFF REQ NO Normal [facility] Comment on above: Performed By: #### C VDTBH #### [facility] [address] [place] [address] Dr. Lisa Martinez MCH (RBC) [Entitic mass] 29.0 pg Normal 26.7-34.0 [facility] Comment on above: Performed By: #### C VDTBH #### [facility] [address] [place] [address] Dr. Lisa Martinez MCHC (RBC) [Mass/Vol] 30.0 g/dL Normal 29.9-35.2 [facility] Comment on above: Performed By: #### C VDTBH #### [facility] [address] [place] [address] Dr. Lisa Martinez MCV (RBC) [Entitic vol] 96.6 fL Normal 81.0-99.0 [facility] Comment on above: Performed By: #### C VDTB #### [facility] [address] [place] [address] Dr. Lisa Martinez MONO # 0.6 103/ul Normal 0.3-0.8 [facility] Comment on above: Performed By: #### C VDTBH #### [facility] [address] [address] [address] Lisa Martinez Monocytes/100 WBC (Bld) 10.2 % Normal 1.7-12.0 [facility] Comment on above: Performed By: #### C VDTBH #### [facility] [address] [place] [address] Dr. Lisa Martinez NEUT # 4.0 103/ul Normal 1.4-6.5 [facility] Comment on above: Performed By: #### C VDTB #### [facility] [address] [place] [address] Dr. Lisa Martinez Neutrophils/100 WBC (Bld) 70.5 % Normal 43.0-75.0 [facility] Comment on above: Performed By: #### C VDTBH #### [facility] [address] [place] [address] Dr. Lisa Martinez Platelet mean volume (Bld) [Entitic vol] 10.3 fL Normal 9.5-13.5 [facility] Comment on above: Performed By: #### C VDTBH #### [facility] [address] [place] [address] Dr. Lisa Martinez PLT 192 103/ul Normal 150-450 [facility] Comment on above: Performed By: #### C VDTBH #### [facility] [address] [place] [address] Dr. Lisa Martinez RBC 3.24 106/ul Critically low 4.20-5.40 [facility] Comment on above: Performed By: #### C VDTBH #### [facility] [address] [place] [address] Dr. Lisa Martinez WBC 5.7 103/ul Normal 4.0-11.0 [facility] Comment on above: Performed By: #### C VDTBH #### [facility] [address] [address] [address] Lisa Martinez D-DIMERon 11-14-2022 D-DIMER 0.82 mg/L FEU Critically high <=0.59 [facility] Comment on above: Performed By: #### B CNMT, BMP #### [facility] [address] [address] [address] Lisa Martinez D-DIMER COMMENTS SEE BELOW Normal [facility] Comment on above: Result Comment: Incr eases [...] and generalized hospitalization. Performed By: #### B CNMT, BMP #### [facility] [address] [place] [address] Dr. Lisa Martinez ECHO LIMITED STUDYon 023 ECHO LIMITED STUDY Patient: URSZULA VILLEGAS Exam Date: 11/14/2022 : 1940 Gender:F Ordering : DR ROBERTO ZIMMERMAN . Admission #: [id number] Family : Order #: [id number] CLICK HERE TO VIEW EXAM ECHOCARDIOGRAM REPORT [...] M.D. on 11/14/2022 at 16:43 Normal [facility] MAGNESIUMon 11-14-2022 Magnesium [Mass/Vol] 2.3 mg/dL Normal 1.8-2.4 [facility] Comment on above: Performed By: #### U RCX #### [facility] [address] [place] [address] Dr. Lisa Martinez NM LUNG VENT_PERFon 11-15-19 [...] by: SADIE GARCIA Date: 2022-11-14 19:11 Normal [facility] OCC BLD IMMUNO SCREENon OCCULT BLOOD Negative Normal NEGATIVE [facility] Comment on above: Performed By: #### B LDCX2 #### [facility] [address] [place] [address] Dr. Lisa Martinez POINT OF CARE GLUCOSEon Glucose [Mass/Vol] 155 mg/dL Critically high 74-106 [facility] Comment on above: Performed By: #### P OCGLUC ####[facility] [address] [address]Dr. Lisa Martinez Glucose [Mass/Vol] 148 mg/dL Critically high 74-106 [facility] Comment on above: Performed By: #### B LDCX2 #### [facility] [address] [address] [address] Lisa Martinez Glucose [Mass/Vol] 76 mg/dL Normal 74-106 [facility] Comment on above: Performed By: #### B LDCX2 #### [facility] [address] [address] [address] Lisa Martinez POTASSIUM URINEon 11-14-2022 UR POTASSIUM 21.3 mmol/L Normal [facility] Comment on above: Performed By: #### K U #### [facility] [address] [place] [address] Dr. Lisa Martinez PROF 14(COMP METB)on 023 Albumin [Mass/Vol] 3.3 g/dL Critically low 3.4-5.[address] [facility] Comment on above: Performed By: #### U RCX #### [facility] [address] [address] [address] Lisa Martinez Albumin/Globulin [Mass ratio] 0.7 {ratio} Normal [facility] Comment on above: Performed By: #### U RCX #### [facility] [address] [address] [address] Lisa Martinez ALP [Catalytic activity/Vol] 72 U/L Normal 46-116 [facility] Comment on above: Performed By: #### U RCX #### [facility] [address] [address] [address] Lisa aMrtinez ALT [Catalytic activity/Vol] 16 U/L Normal 14-59 [facility] Comment on above: Performed By: #### U RCX #### [facility] [address] [address] [address] Lisa Martinez Anion gap [Moles/Vol] 13.0 mmol/L Normal [facility] Comment on above: Performed By: #### U RCX #### [facility] [address] [address] [address] Lisa Martinez AST [Catalytic activity/Vol] 13 U/L Critically low 15-37 [facility] Comment on above: Performed By: #### U RCX #### [facility] [address] [address] [address] Lisa Martinez Bilirubin [Mass/Vol] 0.8 mg/dL Normal 0.2-1.0 [facility] Comment on above: Performed By: #### U RCX #### [facility] [address] [address] [address] Lisa Martinez Calcium [Mass/Vol] 9.0 mg/dL Normal 8.5-10.1 [facility] Comment on above: Performed By: #### U RCX #### [facility] [address] [address] [address] Lisa Martinez Chloride [Moles/Vol] 100 mmol/L Normal 98-107 [facility] Comment on above: Performed By: #### U RCX #### [facility] [address] [address] [address] Lisa Martinez CO2 [Moles/Vol] 30.0 mmol/L Normal 21.0-32.0 [facility] Comment on above: Performed By: #### U RCX #### [facility] [address] [address] [address] Lisa Martinez Creatinine [Mass/Vol] 2.79 mg/dL Critically high 0.55-1.02 [facility] Comment on above: Performed By: #### U RCX #### [facility] [address] [address] [address] Lisa Martinez EGFR-AF SAMMARINESE 20 mL/min/1.73m2 Critically low >=60 [facility] Comment on above: Performed By: #### U RCX #### [facility] [address] [address] [address] Lisa Martinez EGFR-NON AF SAMMARINESE 16 mL/min/1.73m2 Critically low >=60 [facility] Comment on above: Performed By: #### U RCX #### [facility] [address] [address] [address] Lisa Martinez Globulin (S) [Mass/Vol] 4.6 g/dL Normal [facility] Comment on above: Performed By: #### U RCX #### [facility] [address] [address] [address] Lisa Martinez Glucose [Mass/Vol] 153 mg/dL Critically high 74-106 [facility] Comment on above: Performed By: #### U RCX #### [facility] [address] [address] [address] Lisa Martinez Potassium [Moles/Vol] 4.0 mmol/L Normal 3.5-5.1 [facility] Comment on above: Performed By: #### U RCX #### [facility] [address] [address] [address] Lisa Martinez Protein [Mass/Vol] 7.9 g/dL Normal 6.4-8.2 [facility] Comment on above: Performed By: #### U RCX #### [facility] [address] [address] [address] Lisa Martinez Sodium [Moles/Vol] 139 mmol/L Normal 136-145 [facility] Comment on above: Performed By: #### U RCX #### [facility] [address] [address] [address] Lisa Martinez Urea nitrogen [Mass/Vol] 67.0 mg/dL Critically high 7.0-18.0 [facility] Comment on above: Performed By: #### U RCX #### [facility] [address] [address] [address] Lisa Martinez Urea nitrogen/Creatinin e [Mass ratio] 24.0 mg/mg Normal [facility] Comment on above: Performed By: #### U RCX #### [facility] [address] [place] [address] Dr. Lisa Martinez SODIUM RANDOM URINEon 2022 Sodium (U) [Moles/Vol] 122 mmol/L Critically high 30-90 [facility] Comment on above: Performed By: #### B CNMT, BMP #### [facility] [address] [address] [address] Lisa Martinez T3, TOTAL (TRIIODOTHYRONINE) on 11-14-2022 T3, TOTAL 84 ng/dL Normal 71-180 [facility] Comment on above: Performed By: #### U RCX #### [facility] [address] [address] [address] Lisa Martinez BNPon 11-13-2022 Natriuretic peptide B (Bld) [Mass/Vol] 84472.0 pg/mL Critically high <=1,800.0 [facility] Comment on above: Performed By: #### B MP, HSTROPN, BNP ####[facility] [address] [address]Dr. Lisa Martinez CARDIAC DONY 3-6on 3 CK [Catalytic activity/Vol] 60 U/L Normal 26-192 [facility] Comment on above: Performed By: #### C MREP ####[facility] [address] [id number]. Lisa Martinez CK.MB [Mass/Vol] 0.96 ng/mL Normal <=3.60 [facility] Comment on above: Performed By: #### C MREP ####[facility] [address] [id number]. Lisa Martinez HSTROP 16.3 pg/mL Normal 4.0-51.3 [facility] Comment on above: Result Comment: CUT- OFF POINTS HAVE BEEN ESTABLISHED BASED ON THE FOURTH UNIVERSAL DEFINITIONS OF MYOCARDIAL INFARCTION. THE UPPER REFERENCE LIMIT (URL) OF TROPONIN, DEFINED THE 99TH PERCENTILE OF cTnI DISTRIBUTION IN A REFERENCE POPULATION, HAS BEEN CONFIRMED THE DECISION THRESHOLD FOR GA DIAGNOSIS. Performed By: #### C MREP ####[facility] [address] [address]Dr. Lisa Martinez CK [Catalytic activity/Vol] 60 U/L Normal 26-192 [facility] Comment on above: Performed By: #### C BC #### [facility] [address] [address] [address] Lisa Martinez CK.MB [Mass/Vol] 0.94 ng/mL Normal <=3.60 [facility] Comment on above: Performed By: #### C BC #### [facility] [address] [place] [address] Dr. Lisa Martinez HSTROP 15.1 pg/mL Normal 4.0-51.3 [facility] Comment on above: Result Comment: CUT- OFF POINTS HAVE BEEN ESTABLISHED BASED ON THE FOURTH UNIVERSAL DEFINITIONS OF MYOCARDIAL INFARCTION. THE UPPER REFERENCE LIMIT (URL) OF TROPONIN, DEFINED THE 99TH PERCENTILE OF cTnI DISTRIBUTION IN A REFERENCE POPULATION, HAS BEEN CONFIRMED THE DECISION THRESHOLD FOR GA DIAGNOSIS. Performed By: #### C BC #### [facility] [address] [address] [address] Lisa Martinez CBC AUTO DIFFon 11-13-2022 BASO # 0.1 103/ul Normal 0.0-0.1 [facility] Comment on above: Performed By: #### C BC #### [facility] [address] [address] [address] Lisa Martinez Basophils/100 WBC (Bld) 0.6 % Normal 0.2-2.0 [facility] Comment on above: Performed By: #### C BC #### [facility] [address] [place] [address] Dr. Lisa Martinez EO # 0.2 103/ul Normal 0.0-0.7 [facility] Comment on above: Performed By: #### C BC #### [facility] [address] [address] [address] Lisa Martinez Eosinophils/100 WBC (Bld) 1.8 % Normal 0.9-7.0 [facility] Comment on above: Performed By: #### C BC #### [facility] [address] [place] [address] Dr. Lisa Martinez Erythrocyte distribution width (RBC) [Ratio] 15.0 % Normal 11.0-15.0 [facility] Comment on above: Performed By: #### C BC #### [facility] [address] [place] [address] Dr. Lisa Martinez Hematocrit (Bld) [Volume fraction] 32.9 % Critically low 36.0-48.0 [facility] Comment on above: Performed By: #### C BC #### [facility] [address] [place] [address] Dr. Lisa Martinez Hemoglobin (Bld) [Mass/Vol] 9.8 g/dL Critically low 12.0-16.0 [facility] Comment on above: Performed By: #### C BC #### [facility] [address] [place] [address] Dr. Lisa Martinez IG # 0.02 10e3/ul Normal 0.00-0.03 [facility] Comment on above: Performed By: #### C BC #### [facility] [address] [place] [address] Dr. Lisa Martinez IG % 0.2 % Normal 0.0-0.5 [facility] Comment on above: Performed By: #### C BC #### [facility] [address] [place] [address] Dr. Lisa Martinez LYMPH # 0.7 103/ul Critically low 1.2-3.8 [facility] Comment on above: Performed By: #### C BC #### [facility] [address] [place] [address] Dr. Lisa Martinez Lymphocytes/100 WBC (Bld) 7.8 % Critically low 20.5-60.0 [facility] Comment on above: Performed By: #### C BC #### [facility] [address] [place] [address] Dr. Lsia Martinez MANUAL DIFF REQ NO Normal [facility] Comment on above: Performed By: #### C BC #### [facility] [address] [place] [address] Dr. Lisa Martinez MCH (RBC) [Entitic mass] 29.4 pg Normal 26.7-34.0 [facility] Comment on above: Performed By: #### C BC #### [facility] [address] [place] [address] Dr. Lisa Martinez MCHC (RBC) [Mass/Vol] 29.8 g/dL Critically low 29.9-35.2 [facility] Comment on above: Performed By: #### C BC #### [facility] [address] [place] [address] Dr. Lisa Martinez MCV (RBC) [Entitic vol] 98.8 fL Normal 81.0-99.0 [facility] Comment on above: Performed By: #### C BC #### [facility] [address] [place] [address] Dr. Lisa Martinez MONO # 0.7 103/ul Normal 0.3-0.8 [facility] Comment on above: Performed By: #### C BC #### [facility] [address] [place] [address] Dr. Lisa Martinez Monocytes/100 WBC (Bld) 7.6 % Normal 1.7-12.0 [facility] Comment on above: Performed By: #### C BC #### [facility] [address] [place] [address] Dr. Lisa Martinez NEUT # 7.0 103/ul Critically high 1.4-6.5 [facility] Comment on above: Performed By: #### C BC #### [facility] [address] [place] [address] Dr. Lisa Martinez Neutrophils/100 WBC (Bld) 82.0 % Critically high 43.0-75.0 [facility] Comment on above: Performed By: #### C BC #### [facility] [address] [place] [address] Dr. Lisa Martinez Platelet mean volume (Bld) [Entitic vol] 10.6 fL Normal 9.5-13.5 [facility] Comment on above: Performed By: #### C BC #### [facility] [address] [place] [address] Dr. Lisa Martinez PLT 209 103/ul Normal 150-450 [facility] Comment on above: Performed By: #### C BC #### [facility] [address] [place] [address] Dr. Lisa Martinez RBC 3.33 106/ul Critically low 4.20-5.40 [facility] Comment on above: Performed By: #### C BC #### [facility] [address] [place] [address] Dr. Lisa Martinez WBC 8.6 103/ul Normal 4.0-11.0 [facility] Comment on above: Performed By: #### C BC #### [facility] [address] [place] [address] Dr. Lisa Martinez LACTATE/LACTIC ACIDon 2022 Lactate [Moles/Vol] 3.4 mmol/L Critically high 0.4-2.0 [facility] Comment on above: Performed By: #### L ACT ####[facility] [address] [address]Dr. Lisa Martinez MAGNESIUMon 11-13-2022 Magnesium [Mass/Vol] 2.6 mg/dL Critically high 1.8-2.4 [facility] Comment on above: Performed By: #### B CNMT, BMP #### [facility] [address] [address] [address] Lisa Martinez PROF CHEM 8 (BAS METB)on Anion gap [Moles/Vol] 15.7 mmol/L Normal [facility] Comment on above: Performed By: #### C BC #### [facility] [address] [address] [address] Lisa Martinez Calcium [Mass/Vol] 9.1 mg/dL Normal 8.5-10.1 [facility] Comment on above: Performed By: #### C BC #### [facility] [address] [address] [address] Lisa Martinez Chloride [Moles/Vol] 103 mmol/L Normal 98-107 [facility] Comment on above: Performed By: #### C BC #### [facility] [address] [address] [address] Lisa Martinez CO2 [Moles/Vol] 27.2 mmol/L Normal 21.0-32.0 [facility] Comment on above: Performed By: #### C BC #### [facility] [address] [address] [address] Lisa Martinez Creatinine [Mass/Vol] 2.91 mg/dL Critically high 0.55-1.02 [facility] Comment on above: Performed By: #### C BC #### [facility] [address] [address] [address] Lisa Martinez EGFR-AF SAMMARINESE 19 mL/min/1.73m2 Critically low >=60 [facility] Comment on above: Performed By: #### C BC #### [facility] [address] [address] [address] Lisa Martinez EGFR-NON AF SAMMARINESE 15 mL/min/1.73m2 Critically low >=60 [facility] Comment on above: Performed By: #### C BC #### [facility] [address] [address] [address] Lisa Martinez Glucose [Mass/Vol] 172 mg/dL Critically high 74-106 [facility] Comment on above: Performed By: #### C BC #### [facility] [address] [address] [address] Lisa Martinez Potassium [Moles/Vol] 4.9 mmol/L Normal 3.5-5.1 [facility] Comment on above: Performed By: #### C BC #### [facility] [address] [address] [address] Lisa Martinez Sodium [Moles/Vol] 141 mmol/L Normal 136-145 [facility] Comment on above: Performed By: #### C BC #### [facility] [address] [address] [address] Lisa Martinez Urea nitrogen [Mass/Vol] 64.0 mg/dL Critically high 7.0-18.0 [facility] Comment on above: Performed By: #### C BC #### [facility] [address] [address] [address] Lisa Martinez Urea nitrogen/Creatinin e [Mass ratio] 22.0 mg/mg Normal [facility] Comment on above: Performed By: #### C BC #### [facility] [address] [address] [address] Lisa Martinez Anion gap [Moles/Vol] 17.4 mmol/L Normal [facility] Comment on above: Performed By: #### B NUHA HSTROPN, BNP ####[facility] [address] [address]DrIngrid Martinez Calcium [Mass/Vol] 9.1 mg/dL Normal 8.5-10.1 [facility] Comment on above: Performed By: #### B MP, HSTROPN, BNP ####[facility] [address] [address]DrIngrid Martinez Chloride [Moles/Vol] 104 mmol/L Normal 98-107 [facility] Comment on above: Performed By: #### B MP, HSTROPN, BNP ####[facility] [address] [address]Dr. Lisa Martinez CO2 [Moles/Vol] 26.9 mmol/L Normal 21.0-32.0 [facility] Comment on above: Performed By: #### B MP, HSTROPN, BNP ####[facility] [address] [address]Dr. Lisa Martinez Creatinine [Mass/Vol] 3.12 mg/dL Critically high 0.55-1.02 [facility] Comment on above: Performed By: #### B MP, HSTROPN, BNP ####[facility] [address] [address]Dr. Lisa Martinez EGFR-AF SAMMARINESE 17 mL/min/1.73m2 Critically low >=60 [facility] Comment on above: Performed By: #### B MP, HSTROPN, BNP ####[facility] [address] [place], [place] [address]Dr. Lisa Martinez EGFR-NON AF SAMMARINESE 14 mL/min/1.73m2 Critically low >=60 [facility] Comment on above: Performed By: #### B MP, HSTROPN, BNP ####[facility] [address] [place], [place] [address]Dr. Lisa Martinez Glucose [Mass/Vol] 131 mg/dL Critically high 74-106 [facility] Comment on above: Performed By: #### B MP, HSTROPN, BNP ####[facility] [address] [address]Dr. Lisa Martinez Potassium [Moles/Vol] 5.3 mmol/L Critically high 3.5-5.1 [facility] Comment on above: Performed By: #### B MP, HSTROPN, BNP ####[facility] [address] [address]Dr. Lisa Martinez Sodium [Moles/Vol] 143 mmol/L Normal 136-145 [facility] Comment on above: Performed By: #### B MP, HSTROPN, BNP ####[facility] [address] [place], [place] [address]Dr. Lisa Martinez Urea nitrogen [Mass/Vol] 59.0 mg/dL Critically high 7.0-18.0 [facility] Comment on above: Performed By: #### B MP, HSTROPN, BNP ####[facility] [address] [place], [place] [address]Dr. Lisa Martinez Urea nitrogen/Creatinin e [Mass ratio] 18.9 mg/mg Normal [facility] Comment on above: Performed By: #### B MP, HSTROPN, BNP ####[facility] [address] [place], [place] [address]Dr. Lisa Martinez SYMPTOMATIC COVID-19 ANTIGEN on 11-13-2022 EUA Statement SEE BELOW Normal [facility] Comment on above: Result Comment: This [...] sooner. Performed By: #### C VDTBH #### [facility] [address] [place] [address] Dr. Lisa Martinez SARS-CoV-2 (COVID-19) RNA RACIEL+probe Ql (Unsp spec) Negative Normal NEGATIVE [facility] Comment on above: Performed By: #### C VDTBH #### [facility] [address] [place] [address] Dr. Lisa Martinez T4on 11-13-2022 T4 [Mass/Vol] 6.70 ug/dL Normal 4.80-13.90 [facility] Comment on above: Performed By: #### B CNMT, BMP #### [facility] [address] [place] [address] Dr. Lisa Martinez TROPONIN, HIGH SENSITIVITYon 11-13-2022 HSTROP 17.9 pg/mL Normal 4.0-51.3 [facility] Comment on above: Result Comment: CUT- OFF POINTS HAVE BEEN ESTABLISHED BASED ON THE FOURTH UNIVERSAL DEFINITIONS OF MYOCARDIAL INFARCTION. THE UPPER REFERENCE LIMIT (URL) OF TROPONIN, DEFINED THE 99TH PERCENTILE OF cTnI DISTRIBUTION IN A REFERENCE POPULATION, HAS BEEN CONFIRMED THE DECISION THRESHOLD FOR GA DIAGNOSIS. Performed By: #### B MP, HSTROPN, BNP ####[facility] [address] [address]Dr. Lisa Martinez TSHon 11-13-2022 TSH 5.233 uIU/mL Critically high 0.358-3.740 [facility] Comment on above: Performed By: #### B CNMT, BMP #### [facility] [address] [place] [address] Dr. Lisa Martinez UA RANDOM W/MICROSCOPICon BACTERIA SMALL Abnormal NONE SEEN [facility] Comment on above: Performed By: #### K U #### [facility] [address] [place] [address] Dr. Lisa Martinez Bilirubin Ql (U) Negative Normal NEGATIVE [facility] Comment on above: Performed By: #### K U #### [facility] [address] [place] [address] Dr. Lisa Martinez CAST SEEN Abnormal NONE [facility] Comment on above: Performed By: #### K U #### [facility] [address] [place] [address] Dr. Lisa Martinez Clarity (U) CLEAR Normal CLEAR [facility] Comment on above: Performed By: #### K U #### [facility] [address] [place] [address] Dr. Lisa Martinez Color (U) LT. YELLOW Normal YELLOW [facility] Comment on above: Performed By: #### K U #### [facility] [address] [place] [address] Dr. Lisa Martinez Crystals LM Nom (Urine sed) NONE SEEN Normal NONE SEEN [facility] Comment on above: Performed By: #### K U #### [facility] [address] [place] [address] Dr. Lisa Martinez Epithelial cells LM Ql (Urine sed) FEW Abnormal NONE SEEN /RARE [facility] Comment on above: Performed By: #### K U #### [facility] [address] [place] [address] Dr. Lisa Martinez Glucose Ql (U) Negative Normal NEGATIVE [facility] Comment on above: Performed By: #### K U #### [facility] [address] [address] [address] Lisa Martinez Hemoglobin Ql (U) Negative Normal NEGATIVE [facility] Comment on above: Performed By: #### K U #### [facility] [address] [place] [address] Dr. Lisa Martinez HYALINE CAST FEW Normal [facility] Comment on above: Performed By: #### K U #### [facility] [address] [place] [address] Dr. Lisa Martinez Ketones Ql (U) Negative Normal NEGATIVE [facility] Comment on above: Performed By: #### K U #### [facility] [address] [place] [address] Dr. Lisa Martinez LEUKOCYTES Negative Normal NEGATIVE [facility] Comment on above: Performed By: #### K U #### [facility] [address] [place] [address] Dr. Lisa Martinez MUCOUS NONE SEEN Normal NONE SEEN [facility] Comment on above: Performed By: #### K U #### [facility] [address] [place] [address] Dr. Lisa Martinez Nitrite Ql (U) Negative Normal NEGATIVE [facility] Comment on above: Performed By: #### K U #### [facility] [address] [place] [address] Dr. Lisa Martinez pH (U) 5.5 [pH] Normal 5-9 [facility] Comment on above: Performed By: #### K U #### [facility] [address] [place] [address] Dr. Lisa Martinez RBC NONE SEEN Abnormal 0-2 [facility] Comment on above: Performed By: #### K U #### [facility] [address] [address] [address] Lisa Martinez SPEC GRAVITY 1.010 Normal 1.005-<=1.025 [facility] Comment on above: Performed By: #### K U #### [facility] [address] [address] [address] Lisa Martinez UA PROTEIN Negative Normal NEGATIVE/ TRACE [facility] Comment on above: Performed By: #### K U #### [facility] [address] [place] [address] Dr. Lisa Martinez Urobilinogen Qn (U) 0.2 {Mike'U}/dL Normal 0.2 - 1.0 [facility] Comment on above: Performed By: #### K U #### [facility] [address] [place] [address] Dr. Lisa Martinez WBC NONE SEEN Normal NONE SEEN [facility] Comment on above: Performed By: #### K U #### [facility] [address] [place] [address] Dr. Lisa Martinez US KIDNEYS BLADDERon 023 [...] by: Gela ARANDA Date: 2022-11-13 16:01 Normal [facility] XR CHEST 1 Von 11-13-2022 XR [...] MEENA WOOTEN Date: 2022-11-13 12:20 Normal [facility] PROF CHEM 8 (BAS METB)on Anion gap [Moles/Vol] 13.5 mmol/L Normal [facility] Comment on above: Performed By: #### B MP ####[facility] [address] [address]Dr. Lisa Martinez Calcium [Mass/Vol] 9.2 mg/dL Normal 8.5-10.1 [facility] Comment on above: Performed By: #### B MP ####[facility] [address] [address]Dr. Lisa Martinez Chloride [Moles/Vol] 108 mmol/L Critically high 98-107 [facility] Comment on above: Performed By: #### B MP ####[facility] [address] [address]Dr. Lisa Martinez CO2 [Moles/Vol] 25.6 mmol/L Normal 21.0-32.0 The [facility] Comment on above: Performed By: #### B MP ####[facility] [address] [address]Dr. Lisa Martinez Creatinine [Mass/Vol] 1.53 mg/dL Critically high 0.55-1.02 [facility] Comment on above: Performed By: #### B MP ####[facility] [address] [address]Dr. Lisa Martinez EGFR-AF SAMMARINESE 39 mL/min/1.73m2 Critically low >=60 [facility] Comment on above: Performed By: #### B MP ####[facility] [address] [id number] Martinez EGFR-NON AF SAMMARINESE 32 mL/min/1.73m2 Critically low >=60 [facility] Comment on above: Performed By: #### B MP ####[facility] [address] [address]DrIngrid Martinez Glucose [Mass/Vol] 69 mg/dL Critically low 74-106 [facility] Comment on above: Performed By: #### B MP ####[facility] [address] [address]DrIngrid Martinez Potassium [Moles/Vol] 5.1 mmol/L Normal 3.5-5.1 [facility] Comment on above: Performed By: #### B MP ####[facility] [address] [address]Dr. Lisa Martinez Sodium [Moles/Vol] 142 mmol/L Normal 136-145 [facility] Comment on above: Performed By: #### B MP ####[facility] [address] [id number]. Lisa Martinez Urea nitrogen [Mass/Vol] 32.0 mg/dL Critically high 7.0-18.0 [facility] Comment on above: Performed By: #### B MP ####[facility] [address] [address]DrIngrid Martinez Urea nitrogen/Creatinin e [Mass ratio] 20.9 mg/mg Normal [facility] Comment on above: Performed By: #### B MP ####[facility] [address] [address]Dr. Lisa Martinez BNPon 10-08-2022 Natriuretic peptide B (Bld) [Mass/Vol] 3489.0 pg/mL Critically high <=1,800.0 [facility] Comment on above: Performed By: #### B CNMT, BMP #### [facility] [address] [address] [address] Lisa Martinez CBC AUTO DIFFon 10-08-2022 BASO # 0.0 103/ul Normal 0.0-0.1 [facility] Comment on above: Performed By: #### B CNMT, BMP #### [facility] [address] [place] [address] Dr. Lisa Martinez Basophils/100 WBC (Bld) 0.6 % Normal 0.2-2.0 [facility] Comment on above: Performed By: #### B CNMT, BMP #### [facility] [address] [place] [address] Dr. Lisa Martinez EO # 0.2 103/ul Normal 0.0-0.7 [facility] Comment on above: Performed By: #### B CNMT, BMP #### [facility] [address] [place] [address] Dr. Lisa Martinez Eosinophils/100 WBC (Bld) 3.5 % Normal 0.9-7.0 [facility] Comment on above: Performed By: #### B CNMT, BMP #### [facility] [address] [place] [address] Dr. Lisa Martinez Erythrocyte distribution width (RBC) [Ratio] 15.5 % Critically high 11.0-15.0 [facility] Comment on above: Performed By: #### B CNMT, BMP #### [facility] [address] [place] [address] Dr. Lisa Martinez Hematocrit (Bld) [Volume fraction] 31.8 % Critically low 36.0-48.0 [facility] Comment on above: Performed By: #### B CNMT, BMP #### [facility] [address] [place] [address] Dr. Lisa Martinez Hemoglobin (Bld) [Mass/Vol] 9.8 g/dL Critically low 12.0-16.0 [facility] Comment on above: Performed By: #### B CNMT, BMP #### [facility] [address] [place] [address] Dr. Lisa Martinez IG # 0.02 10e3/ul Normal 0.00-0.03 [facility] Comment on above: Performed By: #### B CNMT, BMP #### [facility] [address] [address] [address] Lisa Martinez IG % 0.3 % Normal 0.0-0.5 [facility] Comment on above: Performed By: #### B CNMT, BMP #### [facility] [address] [address] [address] Lisa Martinez LYMPH # 0.9 103/ul Critically low 1.2-3.8 [facility] Comment on above: Performed By: #### B CNMT, BMP #### [facility] [address] [place] [address] Dr. Lisa Martinez Lymphocytes/100 WBC (Bld) 14.0 % Critically low 20.5-60.0 [facility] Comment on above: Performed By: #### B CNMT, BMP #### [facility] [address] [place] [address] Dr. Lisa Martinez MANUAL DIFF REQ NO Normal [facility] Comment on above: Performed By: #### B CNMT, BMP #### [facility] [address] [place] [address] Dr. Lisa Martinez MCH (RBC) [Entitic mass] 29.9 pg Normal 26.7-34.0 [facility] Comment on above: Performed By: #### B CNMT, BMP #### [facility] [address] [place] [address] Dr. Lisa Martinez MCHC (RBC) [Mass/Vol] 30.8 g/dL Normal 29.9-35.2 [facility] Comment on above: Performed By: #### B CNMT, BMP #### [facility] [address] [place] [address] Dr. Lisa Martinez MCV (RBC) [Entitic vol] 97.0 fL Normal 81.0-99.0 [facility] Comment on above: Performed By: #### B CNMT, BMP #### [facility] [address] [place] [address] Dr. Lisa Martinez MONO # 0.8 103/ul Normal 0.3-0.8 [facility] Comment on above: Performed By: #### B CNMT, BMP #### [facility] [address] [place] [address] Dr. Lisa Martinez Monocytes/100 WBC (Bld) 11.9 % Normal 1.7-12.0 [facility] Comment on above: Performed By: #### B CNMT, BMP #### [facility] [address] [place] [address] Dr. Lisa Martinez NEUT # 4.4 103/ul Normal 1.4-6.5 [facility] Comment on above: Performed By: #### B CNMT, BMP #### [facility] [address] [place] [address] Dr. Lisa Martinez Neutrophils/100 WBC (Bld) 69.7 % Normal 43.0-75.0 [facility] Comment on above: Performed By: #### B CNMT, BMP #### [facility] [address] [place] [address] Dr. Lisa Martinez Platelet mean volume (Bld) [Entitic vol] 10.3 fL Normal 9.5-13.5 [facility] Comment on above: Performed By: #### B CNMT, BMP #### [facility] [address] [place] [address] Dr. Lisa Martinez PLT 223 103/ul Normal 150-450 [facility] Comment on above: Performed By: #### B CNMT, BMP #### [facility] [address] [place] [address] Dr. Lisa Martinez RBC 3.28 106/ul Critically low 4.20-5.40 [facility] Comment on above: Performed By: #### B CNMT, BMP #### [facility] [address] [place] [address] Dr. Lisa Martinez WBC 6.3 103/ul Normal 4.0-11.0 [facility] Comment on above: Performed By: #### B CNMT, BMP #### [facility] [address] [place] [address] Dr. Lisa Martinez DIGOXINon 10-08-2022 DIG 1.6 ng/mL Normal 0.9-2.0 [facility] Comment on above: Performed By: #### D IG ####[facility] [address] [place], [place] [address]KhDr. Lisa Martinez POINT OF CARE GLUCOSEon Glucose [Mass/Vol] 226 mg/dL Critically high 74-106 [facility] Comment on above: Performed By: #### P OCGLUC ####[facility] [address] [place], [place] [address]Dr. Lisa Martinez Glucose [Mass/Vol] 107 mg/dL Critically high 74-106 [facility] Comment on above: Performed By: #### B LDCX2 #### [facility] [address] [address] [address] Lisa Martinez PROF CHEM 8 (BAS METB)on Anion gap [Moles/Vol] 11.7 mmol/L Normal [facility] Comment on above: Performed By: #### B CNMT, BMP #### [facility] [address] [address] [address] Lisa Martinez Calcium [Mass/Vol] 9.2 mg/dL Normal 8.5-10.1 [facility] Comment on above: Performed By: #### B CNMT, BMP #### [facility] [address] [address] [address] Lisa Martinez Chloride [Moles/Vol] 102 mmol/L Normal 98-107 [facility] Comment on above: Performed By: #### B CNMT, BMP #### [facility] [address] [address] [address] Lisa Martinez CO2 [Moles/Vol] 29.3 mmol/L Normal 21.0-32.0 [facility] Comment on above: Performed By: #### B CNMT, BMP #### [facility] [address] [address] [address] Lisa Martinez Creatinine [Mass/Vol] 1.27 mg/dL Critically high 0.55-1.02 [facility] Comment on above: Performed By: #### B CNMT, BMP #### [facility] [address] [address] [address] Lisa Martinez EGFR-AF SAMMARINESE 49 mL/min/1.73m2 Critically low >=60 [facility] Comment on above: Performed By: #### B CNMT, BMP #### [facility] [address] [place] [address] Dr. Lisa Martinez EGFR-NON AF SAMMARINESE 40 mL/min/1.73m2 Critically low >=60 [facility] Comment on above: Performed By: #### B CNMT, BMP #### [facility] [address] [address] [address] Lisa Martinez Glucose [Mass/Vol] 98 mg/dL Normal 74-106 [facility] Comment on above: Performed By: #### B CNMT, BMP #### [facility] [address] [place] [address] Dr. Lisa Martinez Potassium [Moles/Vol] 4.0 mmol/L Normal 3.5-5.1 [facility] Comment on above: Performed By: #### B CNMT, BMP #### [facility] [address] [place] [address] Dr. Lisa Martinez Sodium [Moles/Vol] 139 mmol/L Normal 136-145 [facility] Comment on above: Performed By: #### B CNMT, BMP #### [facility] [address] [place] [address] Dr. Lisa Martinez Urea nitrogen [Mass/Vol] 26.0 mg/dL Critically high 7.0-18.0 [facility] Comment on above: Performed By: #### B CNMT, BMP #### [facility] [address] [place] [address] Dr. Lisa Martinez Urea nitrogen/Creatinin e [Mass ratio] 20.5 mg/mg Normal [facility] Comment on above: Performed By: #### B CNMT, BMP #### [facility] [address] [place] [address] Dr. Lisa Martinez BNPon 10-07-2022 Natriuretic peptide B (Bld) [Mass/Vol] 6039.0 pg/mL Critically high <=1,800.0 [facility] Comment on above: Performed By: #### B CNMT ####[facility] [address] [address]Dr. Lisa Martinez CBC AUTO DIFFon 10-07-2022 BASO # 0.1 103/ul Normal 0.0-0.1 [facility] Comment on above: Performed By: #### K U #### [facility] [address] [address] [address] Lisa Martinez Basophils/100 WBC (Bld) 0.7 % Normal 0.2-2.0 [facility] Comment on above: Performed By: #### K U #### [facility] [address] [address] [address] Lisa Martinez EO # 0.3 103/ul Normal 0.0-0.7 [facility] Comment on above: Performed By: #### K U #### [facility] [address] [address] [address] Lisa Martinez Eosinophils/100 WBC (Bld) 4.0 % Normal 0.9-7.0 [facility] Comment on above: Performed By: #### K U #### [facility] [address] [address] [address] Lisa Martinez Erythrocyte distribution width (RBC) [Ratio] 15.6 % Critically high 11.0-15.0 [facility] Comment on above: Performed By: #### K U #### [facility] [address] [address] [address] Lisa Martinez Hematocrit (Bld) [Volume fraction] 34.0 % Critically low 36.0-48.0 [facility] Comment on above: Performed By: #### K U #### [facility] [address] [address] [address] Lisa Martinez Hemoglobin (Bld) [Mass/Vol] 10.4 g/dL Critically low 12.0-16.0 [facility] Comment on above: Performed By: #### K U #### [facility] [address] [address] [address] Lisa Martinez IG # 0.02 10e3/ul Normal 0.00-0.03 [facility] Comment on above: Performed By: #### K U #### [facility] [address] [place] [address] Dr. Lisa Martinez IG % 0.3 % Normal 0.0-0.5 [facility] Comment on above: Performed By: #### K U #### [facility] [address] [place] [address] Dr. Lisa Martinez LYMPH # 1.0 103/ul Critically low 1.2-3.8 [facility] Comment on above: Performed By: #### K U #### [facility] [address] [place] [address] Dr. Lisa Martinez Lymphocytes/100 WBC (Bld) 14.9 % Critically low 20.5-60.0 [facility] Comment on above: Performed By: #### K U #### [facility] [address] [place] [address] Dr. Lisa Martinez MANUAL DIFF REQ NO Normal [facility] Comment on above: Performed By: #### K U #### [facility] [address] [place] [address] Dr. Lisa Martinez MCH (RBC) [Entitic mass] 29.8 pg Normal 26.7-34.0 [facility] Comment on above: Performed By: #### K U #### [facility] [address] [place] [address] Dr. Lisa Martinez MCHC (RBC) [Mass/Vol] 30.6 g/dL Normal 29.9-35.2 [facility] Comment on above: Performed By: #### K U #### [facility] [address] [place] [address] Dr. iLsa Martinez MCV (RBC) [Entitic vol] 97.4 fL Normal 81.0-99.0 [facility] Comment on above: Performed By: #### K U #### [facility] [address] [place] [address] Dr. Lisa Martinez MONO # 0.6 103/ul Normal 0.3-0.8 [facility] Comment on above: Performed By: #### K U #### [facility] [address] [place] [address] Dr. Lisa Martinez Monocytes/100 WBC (Bld) 8.8 % Normal 1.7-12.0 [facility] Comment on above: Performed By: #### K U #### [facility] [address] [place] [address] Dr. Lisa Martinez NEUT # 4.9 103/ul Normal 1.4-6.5 [facility] Comment on above: Performed By: #### K U #### [facility] [address] [place] [address] Dr. Lisa Martinez Neutrophils/100 WBC (Bld) 71.3 % Normal 43.0-75.0 [facility] Comment on above: Performed By: #### K U #### [facility] [address] [place] [address] Dr. Lisa Martinez Platelet mean volume (Bld) [Entitic vol] 10.5 fL Normal 9.5-13.5 [facility] Comment on above: Performed By: #### K U #### [facility] [address] [place] [address] Dr. Lisa Martinez PLT 251 103/ul Normal 150-450 [facility] Comment on above: Performed By: #### K U #### [facility] [address] [place] [address] Dr. Lisa Martinez RBC 3.49 106/ul Critically low 4.20-5.40 [facility] Comment on above: Performed By: #### K U #### [facility] [address] [place] [address] Dr. Lisa Martinez WBC 6.8 103/ul Normal 4.0-11.0 [facility] Comment on above: Performed By: #### K U #### [facility] [address] [place] [address] Dr. Lisa Martinez DIGOXINon 10-07-2022 DIG 1.7 ng/mL Normal 0.9-2.0 [facility] Comment on above: Performed By: #### U RCX #### [facility] [address] [place] [address] Dr. Lisa Martinez POINT OF CARE GLUCOSEon 04-0 Glucose [Mass/Vol] 185 mg/dL Critically high 74-106 [facility] Comment on above: Performed By: #### B CNMT, BMP #### [facility] [address] [address] [address] Lisa Martinez Glucose [Mass/Vol] 120 mg/dL Critically high -106 [facility] Comment on above: Performed By: #### C VDTBH #### [facility] [address] [place] [address] Dr. Lisa Martinez Glucose [Mass/Vol] 218 mg/dL Critically high -106 [facility] Comment on above: Performed By: #### B LDCX2 #### [facility] [address] [place] [address] Dr. Lisa Martinez PROF CHEM 8 (BAS METB)on Anion gap [Moles/Vol] 12.3 mmol/L Normal [facility] Comment on above: Performed By: #### B CNMT, BMP #### [facility] [address] [place] [address] Dr. Lisa Martinez Calcium [Mass/Vol] 9.3 mg/dL Normal 8.5-10.1 [facility] Comment on above: Performed By: #### B CNMT, BMP #### [facility] [address] [place] [address] Dr. Lisa Martinez Chloride [Moles/Vol] 102 mmol/L Normal 98-107 [facility] Comment on above: Performed By: #### B CNMT, BMP #### [facility] [address] [place] [address] Dr. Lisa Martinez CO2 [Moles/Vol] 30.8 mmol/L Normal 21.0-32.0 [facility] Comment on above: Performed By: #### B CNMT, BMP #### [facility] [address] [place] [address] Dr. Lisa Martinez Creatinine [Mass/Vol] 1.45 mg/dL Critically high 0.55-1.02 [facility] Comment on above: Performed By: #### B CNMT, BMP #### [facility] [address] [address] [address] Lisa Martinez EGFR-AF SAMMARINESE 42 mL/min/1.73m2 Critically low >=60 [facility] Comment on above: Performed By: #### B CNMT, BMP #### [facility] [address] [address] [address] Lisa Martinez EGFR-NON AF SAMMARINESE 34 mL/min/1.73m2 Critically low >=60 [facility] Comment on above: Performed By: #### B CNMT, BMP #### [facility] [address] [address] [address] Lisa Martinez Glucose [Mass/Vol] 103 mg/dL Normal 74-106 [facility] Comment on above: Performed By: #### B CNMT, BMP #### [facility] [address] [place] [address] Dr. Lisa Martinez Potassium [Moles/Vol] 4.1 mmol/L Normal 3.5-5.1 [facility] Comment on above: Performed By: #### B CNMT, BMP #### [facility] [address] [address] [address] Lisa Martinez Sodium [Moles/Vol] 141 mmol/L Normal 136-145 [facility] Comment on above: Performed By: #### B CNMT, BMP #### [facility] [address] [address] [address] Lisa Martinez Urea nitrogen [Mass/Vol] 26.0 mg/dL Critically high 7.0-18.0 [facility] Comment on above: Performed By: #### B CNMT, BMP #### [facility] [address] [address] [address] Lisa Martinez Urea nitrogen/Creatinin e [Mass ratio] 17.9 mg/mg Normal [facility] Comment on above: Performed By: #### B CNMT, BMP #### [facility] [address] [address] [address] Lisa Martinez BNPon 10-06-2022 Natriuretic peptide B (Bld) [Mass/Vol] 6211.0 pg/mL Critically high <=1,800.0 [facility] Comment on above: Performed By: #### C MADM, LIVER, CMP, BNP ####[facility] [address] [address]DrIngrid Martinez CARDIAC DONY ADMITon 023 CK [Catalytic activity/Vol] 50 U/L Normal 26-192 [facility] Comment on above: Performed By: #### C MADM, LIVER, CMP, BNP ####[facility] [address] [address]DrIngrid Martinez CK.MB [Mass/Vol] 0.89 ng/mL Normal <=3.60 [facility] Comment on above: Performed By: #### C MADM, LIVER, CMP, BNP ####[facility] [address] [address]DrIngrid Martinez HSTROP 19.1 pg/mL Normal 4.0-51.3 [facility] Comment on above: Result Comment: CUT- OFF POINTS HAVE BEEN ESTABLISHED BASED ON THE FOURTH UNIVERSAL DEFINITIONS OF MYOCARDIAL INFARCTION. THE UPPER REFERENCE LIMIT (URL) OF TROPONIN, DEFINED THE 99TH PERCENTILE OF cTnI DISTRIBUTION IN A REFERENCE POPULATION, HAS BEEN CONFIRMED THE DECISION THRESHOLD FOR GA DIAGNOSIS. Performed By: #### C MADM, LIVER, CMP, BNP ####[facility] [address] [address]DrIngrid Martinez LISSY 56 ng/mL Normal 9-82 [facility] Comment on above: Performed By: #### C MADM, LIVER, CMP, BNP ####[facility] [address] [id number] Martinez CBC AUTO DIFFon 10-06-2022 BASO # 0.1 103/ul Normal 0.0-0.1 [facility] Comment on above: Performed By: #### C BC #### [facility] [id number] Lisa Martinez Basophils/100 WBC (Bld) 0.7 % Normal 0.2-2.0 [facility] Comment on above: Performed By: #### C BC #### [facility] [address] [place] [address] Dr. Lisa Martinez EO # 0.2 103/ul Normal 0.0-0.7 [facility] Comment on above: Performed By: #### C BC #### [facility] [address] [place] [address] Dr. Lisa Martinez Eosinophils/100 WBC (Bld) 2.0 % Normal 0.9-7.0 [facility] Comment on above: Performed By: #### C BC #### [facility] [address] [place] [address] Dr. Lisa Martinez Erythrocyte distribution width (RBC) [Ratio] 15.7 % Critically high 11.0-15.0 [facility] Comment on above: Performed By: #### C BC #### [facility] [address] [place] [address] Dr. Lisa Martinez Hematocrit (Bld) [Volume fraction] 32.4 % Critically low 36.0-48.0 [facility] Comment on above: Performed By: #### C BC #### [facility] [address] [place] [address] Dr. Lisa Martinez Hemoglobin (Bld) [Mass/Vol] 10.0 g/dL Critically low 12.0-16.0 [facility] Comment on above: Performed By: #### C BC #### [facility] [address] [place] [address] Dr. Lisa Martinez IG # 0.02 10e3/ul Normal 0.00-0.03 [facility] Comment on above: Performed By: #### C BC #### [facility] [address] [place] [address] Dr. Lisa Martinez IG % 0.3 % Normal 0.0-0.5 [facility] Comment on above: Performed By: #### C BC #### [facility] [address] [place] [address] Dr. Lisa Martinez LYMPH # 0.7 103/ul Critically low 1.2-3.8 [facility] Comment on above: Performed By: #### C BC #### [facility] [address] [address] [address] Lisa Martinez Lymphocytes/100 WBC (Bld) 9.2 % Critically low 20.5-60.0 [facility] Comment on above: Performed By: #### C BC #### [facility] [address] [address] [address] Lisa Martinez MANUAL DIFF REQ NO Normal [facility] Comment on above: Performed By: #### C BC #### [facility] [address] [place] [address] Dr. Lisa Martinez MCH (RBC) [Entitic mass] 29.8 pg Normal 26.7-34.0 [facility] Comment on above: Performed By: #### C BC #### [facility] [address] [place] [address] Dr. Lisa Martinez MCHC (RBC) [Mass/Vol] 30.9 g/dL Normal 29.9-35.2 [facility] Comment on above: Performed By: #### C BC #### [facility] [address] [place] [address] Dr. Lisa Martinez MCV (RBC) [Entitic vol] 96.4 fL Normal 81.0-99.0 [facility] Comment on above: Performed By: #### C BC #### [facility] [address] [place] [address] Dr. Lisa Martinez MONO # 0.5 103/ul Normal 0.3-0.8 [facility] Comment on above: Performed By: #### C BC #### [facility] [address] [place] [address] Dr. Lisa Martinez Monocytes/100 WBC (Bld) 6.4 % Normal 1.7-12.0 [facility] Comment on above: Performed By: #### C BC #### [facility] [address] [place] [address] Dr. Lisa Martinez NEUT # 6.2 103/ul Normal 1.4-6.5 [facility] Comment on above: Performed By: #### C BC #### [facility] [address] [address] [address] Lisa Martinez Neutrophils/100 WBC (Bld) 81.4 % Critically high 43.0-75.0 [facility] Comment on above: Performed By: #### C BC #### [facility] [address] [address] [address] Lisa Martinez Platelet mean volume (Bld) [Entitic vol] 10.2 fL Normal 9.5-13.5 [facility] Comment on above: Performed By: #### C BC #### [facility] [address] [address] [address] Lisa Martinez PLT 228 103/ul Normal 150-450 [facility] Comment on above: Performed By: #### C BC #### [facility] [address] [address] [address] Lisa Martinez RBC 3.36 106/ul Critically low 4.20-5.40 [facility] Comment on above: Performed By: #### C BC #### [facility] [address] [address] [address] Lisa Martinez WBC 7.6 103/ul Normal 4.0-11.0 [facility] Comment on above: Performed By: #### C BC #### [facility] [address] [place] [address] Dr. Lisa Martinez CTA CHEST WO W [...] JENNY MARQUEZ Date: 2022-10-06 14:18 Normal [facility] Covid-19 PCR (CVDTB)on 09-08 SARS-CoV-2 (COVID-19) RNA RACIEL+probe Ql (Unsp spec) Not detected Normal NOT DETECTED [facility] Comment on above: Result Comment: When diagnostic [...] for this test is supported by the [place] of Health and Human Service's declaration that [...] longer be used). Performed By: #### C [facility] ####[facility] [address] [address]DrIngrid Martinez DIGOXINon 10-06-2022 DIG 2.3 ng/mL Critically high 0.9-2.0 [facility] Comment on above: Performed By: #### C BC #### [facility] [address] [address] [address] Lisa Martinez LIVER PROFILEon 10-06-2022 BILI, CONJUGATED 0.4 mg/dL Critically high 0.0-0.2 [facility] Comment on above: Performed By: #### C MADM, LIVER, CMP, BNP ####[facility] [address] [address]DrIngrid Martinez POINT OF CARE GLUCOSEon 09-08 Glucose [Mass/Vol] 154 mg/dL Critically high 74-106 [facility] Comment on above: Performed By: #### B CNMT, BMP #### [facility] [address] [address] [address] Lisa Martinez Glucose [Mass/Vol] 77 mg/dL Normal 74-106 [facility] Comment on above: Performed By: #### B CNMT, BMP #### [facility] [address] [address] [address] Lisa Martinez PROF 14(COMP METB)on 023 Albumin [Mass/Vol] 3.5 g/dL Normal 3.4-5.0 [facility] Comment on above: Performed By: #### C MADM, LIVER, CMP, BNP ####[facility] [address] [address]DrIngrid Martinez Albumin/Globulin [Mass ratio] 0.8 {ratio} Normal [facility] Comment on above: Performed By: #### C MADM, LIVER, CMP, BNP ####[facility] [address] [address]DrIngrid Martinez ALP [Catalytic activity/Vol] 94 U/L Normal 46-116 [facility] Comment on above: Performed By: #### C MADM, LIVER, CMP, BNP ####[facility] [address] [address]Dr. Lisa Martinez ALT [Catalytic activity/Vol] 13 U/L Critically low 14-59 [facility] Comment on above: Performed By: #### C MADM, LIVER, CMP, BNP ####[facility] [address] [address]Dr. Lisa Martinez Anion gap [Moles/Vol] 11.1 mmol/L Normal [facility] Comment on above: Performed By: #### C MADM, LIVER, CMP, BNP ####[facility] [address] [address]Dr. Lisa Martinez AST [Catalytic activity/Vol] 15 U/L Normal 15-37 [facility] Comment on above: Performed By: #### C MADM, LIVER, CMP, BNP ####[facility] [address] [address]Dr. Lisa Martinez Bilirubin [Mass/Vol] 1.6 mg/dL Critically high 0.2-1.0 [facility] Comment on above: Performed By: #### C MADM, LIVER, CMP, BNP ####[facility] [address] [address]Dr. Lisa Martinez Calcium [Mass/Vol] 9.2 mg/dL Normal 8.5-10.1 [facility] Comment on above: Performed By: #### C MADM, LIVER, CMP, BNP ####[facility] [address] [address]Dr. Lisa Martinez Chloride [Moles/Vol] 106 mmol/L Normal 98-107 [facility] Comment on above: Performed By: #### C MADM, LIVER, CMP, BNP ####[facility] [address] [address]Dr. Lisa Martinez CO2 [Moles/Vol] 29.0 mmol/L Normal 21.0-32.0 [facility] Comment on above: Performed By: #### C MADM, LIVER, CMP, BNP ####[facility] [address] [address]Dr. Lisa Martinez Creatinine [Mass/Vol] 1.43 mg/dL Critically high 0.55-1.02 [facility] Comment on above: Performed By: #### C MADM, LIVER, CMP, BNP ####[facility] [address] [address]Dr. Lisa Martinez EGFR-AF SAMMARINESE 42 mL/min/1.73m2 Critically low >=60 [facility] Comment on above: Performed By: #### C MADM, LIVER, CMP, BNP ####[facility] [address] [address]Dr. Lisa Martinez EGFR-NON AF SAMMARINESE 35 mL/min/1.73m2 Critically low >=60 [facility] Comment on above: Performed By: #### C MADM, LIVER, CMP, BNP ####[facility] [address] [address]Dr. Lisa Martinez Globulin (S) [Mass/Vol] 4.2 g/dL Normal [facility] Comment on above: Performed By: #### C MADM, LIVER, CMP, BNP ####[facility] [address] [address]Dr. Lisa Martinez Glucose [Mass/Vol] 114 mg/dL Critically high 74-106 [facility] Comment on above: Performed By: #### C MADM, LIVER, CMP, BNP ####[facility] [address] [address]Dr. Lisa Martinez Potassium [Moles/Vol] 4.1 mmol/L Normal 3.5-5.1 [facility] Comment on above: Performed By: #### C MADM, LIVER, CMP, BNP ####[facility] [address] [address]Dr. Fabianachapis Martinez Protein [Mass/Vol] 7.7 g/dL Normal 6.4-8.2 [facility] Comment on above: Performed By: #### C MADM, LIVER, CMP, BNP ####[facility] [address] [address]Dr. Fabianachapis Martinez Sodium [Moles/Vol] 142 mmol/L Normal 136-145 [facility] Comment on above: Performed By: #### C MADM, LIVER, CMP, BNP ####[facility] [address] [place] [address]DrIngrid Martinez Urea nitrogen [Mass/Vol] 26.0 mg/dL Critically high 7.0-18.0 [facility] Comment on above: Performed By: #### C MADM, LIVER, CMP, BNP ####[facility] [address] [address]DrIngrid Martinez Urea nitrogen/Creatinin e [Mass ratio] 18.2 mg/mg Normal [facility] Comment on above: Performed By: #### C MADM, LIVER, CMP, BNP ####[facility] [address] [address]Dr. Lisa Martinez PROTIMEon 10-06-2022 INR Coag (PPP) [Relative time] 1.09 {INR} Normal [facility] Comment on above: Performed By: #### B CNMT, BMP #### [facility] [address] [place] [address] Dr. Lisa Martinez INR GUIDELINES SEE BELOW Normal [facility] Comment on above: Result Comment: ANTONY RED INR: 2.0 - 3.0 CONDITIONS NOT LISTED BELOW 2.5 - 3.5 FOR PROSTHETIC HEART VALVE REPLACEMENT 2.5 - 3.5 RECURRENT THROMBOSIS Performed By: #### B CNMT, BMP #### [facility] [address] [address] [address] Lisa Martinez PT Coag (PPP) [Time] 11.5 s Normal 9.0-11.6 [facility] Comment on above: Performed By: #### B CNMT, BMP #### [facility] [address] [address] [address] Lisa Martinez PTTon 10-06-2022 aPTT Coag (Bld) [Time] 26.5 s Normal 22.3-36.2 [facility] Comment on above: Performed By: #### B CNMT, BMP #### [facility] [address] [address] [address] Lisa Martinez ECHOCARDIO M/2D COMPLETEon 1 08-27-2021 ECHOCARDIO M/2D COMPLETE Patient: JENNI VILLEGAS Exam Date: 06/26/2022 : 1940 Gender:F Ordering : FARZANEH ARNDT Admission #: [id number] Family : Order #: [id number] CLICK HERE TO VIEW EXAM ECHOCARDIOGRAM REPORT [...] 0.81 cm2, 0.87 cm2, 0.77 cm2 Deceleration Frio: 0.72 m/s2 Pressure Half-Time: 1.18 s Peak [...] M.D. on 06/29/2022 at 15:34 Normal [facility] CBC AUTO DIFFon 05-02-2022 BASO # 0.0 103/ul Normal 0.0-0.1 [facility] Comment on above: Performed By: #### C BC #### [facility] [address] [place] [address] Dr. Lisa Martinez Basophils/100 WBC (Bld) 0.4 % Normal 0.2-2.0 [facility] Comment on above: Performed By: #### C BC #### [facility] [address] [place] [address] Dr. Lisa Martinez EO # 0.1 103/ul Normal 0.0-0.7 [facility] Comment on above: Performed By: #### C BC #### [facility] [address] [place] [address] Dr. Lisa Martinez Eosinophils/100 WBC (Bld) 1.8 % Normal 0.9-7.0 [facility] Comment on above: Performed By: #### C BC #### [facility] [address] [place] [address] Dr. Lisa Martinez Erythrocyte distribution width (RBC) [Ratio] 13.3 % Normal 11.0-15.0 [facility] Comment on above: Performed By: #### C BC #### [facility] [address] [place] [address] Dr. Lisa Martinez Hematocrit (Bld) [Volume fraction] 38.4 % Normal 36.0-48.0 [facility] Comment on above: Performed By: #### C BC #### [facility] [address] [place] [address] Dr. Lisa Martinez Hemoglobin (Bld) [Mass/Vol] 12.0 g/dL Normal 12.0-16.0 [facility] Comment on above: Performed By: #### C BC #### [facility] [address] [place] [address] Dr. Lisa Martinez IG # 0.09 10e3/ul Critically high 0.00-0.03 [facility] Comment on above: Performed By: #### C BC #### [facility] [address] [place] [address] Dr. Lisa Martinez IG % 1.6 % Critically high 0.0-0.5 [facility] Comment on above: Performed By: #### C BC #### [facility] [address] [place] [address] Dr. Lisa Martinez LYMPH # 0.9 103/ul Critically low 1.2-3.8 [facility] Comment on above: Performed By: #### C BC #### [facility] [address] [place] [address] Dr. Lisa Martinez Lymphocytes/100 WBC (Bld) 16.0 % Critically low 20.5-60.0 [facility] Comment on above: Performed By: #### C BC #### [facility] [address] [place] [address] Dr. Lisa Martinez MANUAL DIFF REQ NO Normal [facility] Comment on above: Performed By: #### C BC #### [facility] [address] [place] [address] Dr. Lisa Martinez MCH (RBC) [Entitic mass] 30.2 pg Normal 26.7-34.0 [facility] Comment on above: Performed By: #### C BC #### [facility] [address] [place] [address] Dr. Lisa Martinez MCHC (RBC) [Mass/Vol] 31.3 g/dL Normal 29.9-35.2 [facility] Comment on above: Performed By: #### C BC #### [facility] [address] [place] [address] Dr. Lisa Martinez MCV (RBC) [Entitic vol] 96.7 fL Normal 81.0-99.0 [facility] Comment on above: Performed By: #### C BC #### [facility] [address] [place] [address] Dr. Lisa Martinez MONO # 0.6 103/ul Normal 0.3-0.8 [facility] Comment on above: Performed By: #### C BC #### [facility] [address] [place] [address] Dr. Lisa Martinez Monocytes/100 WBC (Bld) 11.3 % Normal 1.7-12.0 [facility] Comment on above: Performed By: #### C BC #### [facility] [address] [address] [address] Lisa Martinez NEUT # 3.9 103/ul Normal 1.4-6.5 [facility] Comment on above: Performed By: #### C BC #### [facility] [address] [place] [address] Dr. Lisa Martinez Neutrophils/100 WBC (Bld) 68.9 % Normal 43.0-75.0 [facility] Comment on above: Performed By: #### C BC #### [facility] [address] [place] [address] Dr. Lisa Matrinez Platelet mean volume (Bld) [Entitic vol] 10.7 fL Normal 9.5-13.5 [facility] Comment on above: Performed By: #### C BC #### [facility] [address] [place] [address] Dr. Lisa Martinez PLT 164 103/ul Normal 150-450 [facility] Comment on above: Performed By: #### C BC #### [facility] [address] [place] [address] Dr. Lisa Martinez RBC 3.97 106/ul Critically low 4.20-5.40 [facility] Comment on above: Performed By: #### C BC #### [facility] [address] [place] [address] Dr. Lisa Martinez WBC 5.6 103/ul Normal 4.0-11.0 [facility] Comment on above: Performed By: #### C BC #### [facility] [address] [place] [address] Dr. Lisa Martinez PROF 14(COMP METB)on 022 Albumin [Mass/Vol] 2.8 g/dL Critically low 3.4-5.[address] [facility] Comment on above: Performed By: #### U RCX #### [facility] [address] [address] [address] Lisa Martinez Albumin/Globulin [Mass ratio] 0.7 {ratio} Normal [facility] Comment on above: Performed By: #### U RCX #### [facility] [address] [address] [address] Lisa Martinez ALP [Catalytic activity/Vol] 74 U/L Normal 46-116 [facility] Comment on above: Performed By: #### U RCX #### [facility] [address] [address] [address] Lisa Martinez ALT [Catalytic activity/Vol] 11 U/L Critically low 14-59 [facility] Comment on above: Performed By: #### U RCX #### [facility] [address] [place] [address] Dr. Lisa Martinez Anion gap [Moles/Vol] 13.5 mmol/L Normal [facility] Comment on above: Performed By: #### U RCX #### [facility] [address] [place] [address] Dr. Lisa Martinez AST [Catalytic activity/Vol] 14 U/L Critically low 15-37 [facility] Comment on above: Performed By: #### U RCX #### [facility] [address] [place] [address] Dr. Lisa Martinez Bilirubin [Mass/Vol] 0.5 mg/dL Normal 0.2-1.0 [facility] Comment on above: Performed By: #### U RCX #### [facility] [address] [place] [address] Dr. Lisa Martinez Calcium [Mass/Vol] 8.5 mg/dL Normal 8.5-10.1 [facility] Comment on above: Performed By: #### U RCX #### [facility] [address] [place] [address] Dr. Lisa Martinez Chloride [Moles/Vol] 103 mmol/L Normal 98-107 [facility] Comment on above: Performed By: #### U RCX #### [facility] [address] [place] [address] Dr. Lisa Martinez CO2 [Moles/Vol] 24.5 mmol/L Normal 21.0-32.0 [facility] Comment on above: Performed By: #### U RCX #### [facility] [address] [address] [address] Lisa Martinez Creatinine [Mass/Vol] 1.43 mg/dL Critically high 0.55-1.02 [facility] Comment on above: Performed By: #### U RCX #### [facility] [address] [address] [address] Lisa Martinez EGFR-AF SAMMARINESE 42 mL/min/1.73m2 Critically low >=60 [facility] Comment on above: Performed By: #### U RCX #### [facility] [address] [address] [address] Lisa Martinez EGFR-NON AF SAMMARINESE 35 mL/min/1.73m2 Critically low >=60 [facility] Comment on above: Performed By: #### U RCX #### [facility] [address] [address] [address] Lisa Martinez Globulin (S) [Mass/Vol] 4.3 g/dL Normal [facility] Comment on above: Performed By: #### U RCX #### [facility] [address] [address] [address] Lisa Martinez Glucose [Mass/Vol] 142 mg/dL Critically high 74-106 [facility] Comment on above: Performed By: #### U RCX #### [facility] [address] [address] [address] Lisa Martinez Potassium [Moles/Vol] 4.0 mmol/L Normal 3.5-5.1 [facility] Comment on above: Performed By: #### U RCX #### [facility] [address] [address] [address] Lisa Martinez Protein [Mass/Vol] 7.1 g/dL Normal 6.4-8.2 [facility] Comment on above: Performed By: #### U RCX #### [facility] [address] [place] [address] Dr. Lisa Martinez Sodium [Moles/Vol] 137 mmol/L Normal 136-145 [facility] Comment on above: Performed By: #### U RCX #### [facility] [address] [place] [address] Dr. Lisa Martinez Urea nitrogen [Mass/Vol] 31.0 mg/dL Critically high 7.0-18.0 [facility] Comment on above: Performed By: #### U RCX #### [facility] [address] [place] [address] Dr. Lisa Martinez Urea nitrogen/Creatinin e [Mass ratio] 21.7 mg/mg Normal [facility] Comment on above: Performed By: #### U RCX #### [facility] [address] [place] [address] Dr. Lisa Martinez CBC AUTO DIFFon 05-01-2022 BASO # 0.0 103/ul Normal 0.0-0.1 [facility] Comment on above: Performed By: #### U RCX #### [facility] [address] [place] [address] Dr. Lisa Martinez Basophils/100 WBC (Bld) 0.3 % Normal 0.2-2.0 [facility] Comment on above: Performed By: #### U RCX #### [facility] [address] [place] [address] Dr. Lisa Martinez EO # 0.1 103/ul Normal 0.0-0.7 [facility] Comment on above: Performed By: #### U RCX #### [facility] [address] [place] [address] Dr. Lisa Martinez Eosinophils/100 WBC (Bld) 0.9 % Normal 0.9-7.0 [facility] Comment on above: Performed By: #### U RCX #### [facility] [address] [place] [address] Dr. Lisa Martinez Erythrocyte distribution width (RBC) [Ratio] 13.4 % Normal 11.0-15.0 [facility] Comment on above: Performed By: #### U RCX #### [facility] [address] [address] [address] Lisa Martinez Hematocrit (Bld) [Volume fraction] 41.6 % Normal 36.0-48.0 [facility] Comment on above: Performed By: #### U RCX #### [facility] [address] [place] [address] Dr. Lisa Martinez Hemoglobin (Bld) [Mass/Vol] 12.8 g/dL Normal 12.0-16.0 [facility] Comment on above: Performed By: #### U RCX #### [facility] [address] [place] [address] Dr. Lisa Martinez IG # 0.16 10e3/ul Critically high 0.00-0.03 [facility] Comment on above: Performed By: #### U RCX #### [facility] [address] [place] [address] Dr. Lisa Martinez IG % 1.6 % Critically high 0.0-0.5 [facility] Comment on above: Performed By: #### U RCX #### [facility] [address] [place] [address] Dr. Lisa Martinez LYMPH # 0.8 103/ul Critically low 1.2-3.8 [facility] Comment on above: Performed By: #### U RCX #### [facility] [address] [place] [address] Dr. Lisa Martinez Lymphocytes/100 WBC (Bld) 7.8 % Critically low 20.5-60.0 [facility] Comment on above: Performed By: #### U RCX #### [facility] [address] [place] [address] Dr. Lisa Martinez MANUAL DIFF REQ NO Normal [facility] Comment on above: Performed By: #### U RCX #### [facility] [address] [place] [address] Dr. Lisa Martinez MCH (RBC) [Entitic mass] 29.8 pg Normal 26.7-34.0 [facility] Comment on above: Performed By: #### U RCX #### [facility] [address] [address] [address] Lisa Martinez MCHC (RBC) [Mass/Vol] 30.8 g/dL Normal 29.9-35.2 [facility] [facility] Comment on above: Performed By: #### U RCX #### [facility] [address] [address] [address] Lisa Martinez MCV (RBC) [Entitic vol] 96.7 fL Normal 81.0-99.0 [facility] Comment on above: Performed By: #### U RCX #### [facility] [address] [place] [address] Dr. Lisa Martinez MONO # 0.8 103/ul Normal 0.3-0.8 [facility] Comment on above: Performed By: #### U RCX #### [facility] [address] [place] [address] Dr. Lisa Martinez Monocytes/100 WBC (Bld) 8.4 % Normal 1.7-12.0 [facility] Comment on above: Performed By: #### U RCX #### [facility] [address] [place] [address] Dr. Lisa Martinez NEUT # 7.9 103/ul Critically high 1.4-6.5 [facility] Comment on above: Performed By: #### U RCX #### [facility] [address] [place] [address] Dr. Lisa Martinez Neutrophils/100 WBC (Bld) 81.0 % Critically high 43.0-75.0 [facility] Comment on above: Performed By: #### U RCX #### [facility] [address] [place] [address] Dr. Lisa Martinez Platelet mean volume (Bld) [Entitic vol] 10.6 fL Normal 9.5-13.5 [facility] Comment on above: Performed By: #### U RCX #### [facility] [address] [place] [address] Dr. Lisa Martinez PLT 211 103/ul Normal 150-450 [facility] Comment on above: Performed By: #### U RCX #### [facility] [address] [place] [address] Dr. Lisa Martinez RBC 4.30 106/ul Normal 4.20-5.40 [facility] Comment on above: Performed By: #### U RCX #### [facility] [address] [place] [address] Dr. iLsa Martinez WBC 9.8 103/ul Normal 4.0-11.0 [facility] Comment on above: Performed By: #### U RCX #### [facility] [address] [place] [address] Dr. Lisa Martinez DIGOXINon 05-01-2022 DIG 0.7 ng/mL Critically low 0.9-2.0 [facility] Comment on above: Performed By: #### B CNMT, BMP #### [facility] [address] [place] [address] Dr. Lisa Martinez GI PANEL (PCR)on 05-01-2022 Adenovirus F 40/41 Not detected Normal NOT DETECTED [facility] Comment on above: Performed By: #### B LDCX2 #### [facility] [address] [place] [address] Dr. Lisa Martinez Astrovirus Not detected Normal NOT DETECTED The [facility] Comment on above: Performed By: #### B LDCX2 #### [facility] [address] [place] [address] Dr. Lisa Martinez C. Diff toxin A/B Not detected Normal NOT DETECTED [facility] Comment on above: Performed By: #### B LDCX2 #### [facility] [address] [place] [address] Dr. Lisa Martinez Campylobacter Not detected Normal NOT DETECTED [facility] Comment on above: Performed By: #### B LDCX2 #### [facility] [address] [place] [address] Dr. Lisa Martinez Cryptosporidium Not detected Normal NOT DETECTED [facility] Comment on above: Performed By: #### B LDCX2 #### [facility] [address] [place] [address] Dr. Lisa Martinez Cyclos. Cayetanensis Not detected Normal NOT DETECTED [facility] Comment on above: Performed By: #### B LDCX2 #### [facility] [address] [place] [address] Dr. Lisa Martinez E. Coli O157 Not Applicable Normal Not Applicable [facility] Comment on above: Performed By: #### B LDCX2 #### [facility] [address] [place] [address] Dr. Lisa Martinez E. histolytica Not detected Normal NOT DETECTED [facility] Comment on above: Performed By: #### B LDCX2 #### [facility] [address] [place] [address] Dr. Lisa Martinez EAEC Not detected Normal NOT DETECTED [facility] Comment on above: Performed By: #### B LDCX2 #### [facility] [address] [place] [address] Dr. Lisa Martinez EIEC Not detected Normal NOT DETECTED [facility] Comment on above: Performed By: #### B LDCX2 #### [facility] [address] [place] [address] Dr. Lisa Martinez EPEC Not detected Normal NOT DETECTED [facility] Comment on above: Performed By: #### B LDCX2 #### [facility] [address] [place] [address] Dr. Lisa Martinez ETEC Not detected Normal NOT DETECTED [facility] Comment on above: Performed By: #### B LDCX2 #### [facility] [address] [place] [address] Dr. Lisa Martinez G. Lamblia Not detected Normal NOT DETECTED [facility] Comment on above: Performed By: #### B LDCX2 #### [facility] [address] [place] [address] Dr. Lisa MALDONADO CONTROLS PASSED Normal [facility] Comment on above: Performed By: #### B LDCX2 #### [facility] [address] [place] [address] Dr. Lisa WARRENNL CHRIS HEADER GI PANEL BACTERIA Normal T [facility] Comment on above: Performed By: #### B LDCX2 #### [facility] [address] [address] [address] Lisa HIRSCH ECOLI GI PANEL DIARRHEAGEN IC E.COLI / SHIGELLA Normal [facility] Comment on above: Performed By: #### B LDCX2 #### [facility] [address] [place] [address] Dr. Lisa HIRSCH INFO SEE BELOW Normal [facility] Comment on above: Result Comment: EAEC - Enteroaggregative E. Coli EPEC- Enteropathogenic E. Coli ETEC- Enterotoxigenic E. Coli lt/st STEC- Shigella-like toxin-producing E. Coli stx1/stx2 EIEC- Shigella/Enteroinvasive E. Coli Performed By: #### B LDCX2 #### [facility] [address] [place] [address] Dr. Lisa HIRSCH PARASITES GI PANEL PARASITES Normal [facility] Comment on above: Performed By: #### B LDCX2 #### [facility] [address] [place] [address] Dr. Lisa HIRSCH VIRUS GI PANEL VIRUSES Normal [facility] Comment on above: Performed By: #### B LDCX2 #### [facility] [address] [place] [address] Dr. Lisa Martinez Norovirus GI/GII Not detected Normal NOT DETECTED [facility] Comment on above: Performed By: #### B LDCX2 #### [facility] [address] [address] [address] Lisa Martinez P. Shigelloides Not detected Normal NOT DETECTED [facility] Comment on above: Performed By: #### B LDCX2 #### [facility] [address] [place] [address] Dr. Lisa Martinez Rotavirus A Not detected Normal NOT DETECTED [facility] Comment on above: Performed By: #### B LDCX2 #### [facility] [address] [place] [address] Dr. Lisa Martinez Salmonella Not detected Normal NOT DETECTED [facility] Comment on above: Performed By: #### B LDCX2 #### [facility] [address] [place] [address] Dr. Lisa Martinez Sapovirus Not detected Normal NOT DETECTED [facility] Comment on above: Performed By: #### B LDCX2 #### [facility] [address] [address] [address] Lisa Martinez STEC Not detected Normal NOT DETECTED [facility] Comment on above: Performed By: #### B LDCX2 #### [facility] [address] [place] [address] Dr. Lisa Martinez Vibrio Not detected Normal NOT DETECTED [facility] Comment on above: Performed By: #### B LDCX2 #### [facility] [address] [place] [address] Dr. Lisa Martinez Vibrio Cholera Not detected Normal NOT DETECTED [facility] Comment on above: Performed By: #### B LDCX2 #### [facility] [address] [place] [address] Dr. Lisa Martinez Y. Enterocolitica Not detected Normal NOT DETECTED [facility] Comment on above: Performed By: #### B LDCX2 #### [facility] [address] [place] [address] Dr. Lisa Martinez MAGNESIUMon 05-01-2022 Magnesium [Mass/Vol] 2.0 mg/dL Normal 1.8-2.4 [facility] Comment on above: Performed By: #### M G ####[facility] [address] [address]Dr. Lisa Martinez POINT OF CARE GLUCOSEon 04-09 Glucose [Mass/Vol] 184 mg/dL Critically high 74-106 [facility] Comment on above: Performed By: #### U RCX #### [facility] [address] [place] [address] Dr. Lisa Martinez Glucose [Mass/Vol] 137 mg/dL Critically high 74-106 [facility] Comment on above: Result Comment: Foll ow Protocol Performed By: #### C BC #### [facility] [address] [address] [address] Lisa Martinez Glucose [Mass/Vol] 170 mg/dL Critically high 74-106 [facility] Comment on above: Result Comment: Foll ow Protocol Performed By: #### P OCGLUC ####[facility] [address] [address]Dr. Lisa Martinez PROF 14(COMP METB)on 022 Albumin [Mass/Vol] 3.0 g/dL Critically low 3.4-5.0 [facility] Comment on above: Performed By: #### C MP ####[facility] [address] [address]Dr. Lisa Martinez Albumin/Globulin [Mass ratio] 0.6 {ratio} Normal [facility] Comment on above: Performed By: #### C MP ####[facility] [address] [place], [place] [address]Dr. Lisa Martinez ALP [Catalytic activity/Vol] 101 U/L Normal 46-116 [facility] Comment on above: Performed By: #### C MP ####[facility] [address] [address]Dr. Lisa Martinez ALT [Catalytic activity/Vol] 16 U/L Normal 14-59 [facility] Comment on above: Performed By: #### C MP ####[facility] [address] [place], [place] [address]Dr. Lisa Martinez Anion gap [Moles/Vol] 9.7 mmol/L Normal [facility] Comment on above: Performed By: #### C MP ####[facility] [address] [place], [place] [address]Dr. Lisa Martinez AST [Catalytic activity/Vol] 13 U/L Critically low 15-37 [facility] Comment on above: Performed By: #### C MP ####[facility] [address] [place], [place] [address]Dr. Lisa Martinez Bilirubin [Mass/Vol] 0.5 mg/dL Normal 0.2-1.0 [facility] Comment on above: Performed By: #### C MP ####[facility] [address] [address]. Lisa Martinez Calcium [Mass/Vol] 8.8 mg/dL Normal 8.5-10.1 [facility] Comment on above: Performed By: #### C MP ####[facility] [address] [address]Dr. Lisa Martinez Chloride [Moles/Vol] 104 mmol/L Normal 98-107 [facility] Comment on above: Performed By: #### C MP ####[facility] [address] [address]Dr. Lisa Martinez CO2 [Moles/Vol] 26.8 mmol/L Normal 21.0-32.0 [facility] Comment on above: Performed By: #### C MP ####[facility] [address] [address]Dr. Lisa Martinez Creatinine [Mass/Vol] 1.51 mg/dL Critically high 0.55-1.02 [facility] Comment on above: Performed By: #### C MP ####[facility] [address] [address]Dr. Lisa Martinez EGFR-AF SAMMARINESE 40 mL/min/1.73m2 Critically low >=60 [facility] Comment on above: Performed By: #### C MP ####[facility] [address] [address]Dr. Lisa Martinez EGFR-NON AF SAMMARINESE 33 mL/min/1.73m2 Critically low >=60 [facility] Comment on above: Performed By: #### C MP ####[facility] [address] [address]Dr. Lisa Martinez Globulin (S) [Mass/Vol] 4.8 g/dL Normal [facility] Comment on above: Performed By: #### C MP ####[facility] [address] [address]Dr. Lisa Juan Glucose [Mass/Vol] 177 mg/dL Critically high 74-106 [facility] Comment on above: Performed By: #### C MP ####[facility] [address] [address]Dr. Lisa Martinez Potassium [Moles/Vol] 4.5 mmol/L Normal 3.5-5.1 [facility] Comment on above: Performed By: #### C MP ####[facility] [address] [address]DrIngrid Martinez Protein [Mass/Vol] 7.8 g/dL Normal 6.4-8.2 [facility] Comment on above: Performed By: #### C MP ####[facility] [address] [address]Dr. Lisa Martinez Sodium [Moles/Vol] 136 mmol/L Normal 136-145 [facility] Comment on above: Performed By: #### C MP ####[facility] [address] [address]DrIngrid Martinez Urea nitrogen [Mass/Vol] 28.0 mg/dL Critically high 7.0-18.0 [facility] Comment on above: Performed By: #### C MP ####[facility] [address] [address]Dr. Lisa Martinez Urea nitrogen/Creatinin e [Mass ratio] 18.5 mg/mg Normal [facility] Comment on above: Performed By: #### C MP ####[facility] [address] [address]Dr. Lisa Martinez BNPon 04-30-2022 Natriuretic peptide B (Bld) [Mass/Vol] 1752.0 pg/mL Normal <=1,800.0 [facility] Comment on above: Performed By: #### B CNMT, BMP #### [facility] [address] [place], [place] [address] Dr. Lisa Martinez CBC AUTO DIFFon 04-30-2022 BASO # 0.1 103/ul Normal 0.0-0.1 [facility] Comment on above: Performed By: #### C BC ####[facility] [address] [address]DrIngrid Martinez Basophils/100 WBC (Bld) 0.6 % Normal 0.2-2.0 [facility] Comment on above: Performed By: #### C BC ####[facility] [address] [address]Dr. Lisa Martinez EO # 0.1 103/ul Normal 0.0-0.7 [facility] Comment on above: Performed By: #### C BC ####[facility] [address] [address]Dr. Lisa Juan Eosinophils/100 WBC (Bld) 1.2 % Normal 0.9-7.0 [facility] Comment on above: Performed By: #### C BC ####[facility] [address] [place], [place] [address]Dr. Lisa Martinez Erythrocyte distribution width (RBC) [Ratio] 13.2 % Normal 11.0-15.0 [facility] Comment on above: Performed By: #### C BC ####[facility] [address] [place], [place] [address]Dr. Lisa Martinez Hematocrit (Bld) [Volume fraction] 43.4 % Normal 36.0-48.0 [facility] Comment on above: Performed By: #### C BC ####[facility] [address] [place], [place] [address]Dr. Lisa Martinez Hemoglobin (Bld) [Mass/Vol] 14.2 g/dL Normal 12.0-16.0 [facility] Comment on above: Performed By: #### C BC ####[facility] [address] [place], [place] [address]Dr. Lisa Martinez IG # 0.13 10e3/ul Critically high 0.00-0.03 [facility] Comment on above: Performed By: #### C BC ####[facility] [address] [place], [place] [address]Dr. Lisa Martinez IG % 1.6 % Critically high 0.0-0.5 [facility] Comment on above: Performed By: #### C BC ####[facility] [address] [place], [place] [address]Dr. Lisa Martinez LYMPH # 0.8 103/ul Critically low 1.2-3.8 [facility] Comment on above: Performed By: #### C BC ####[facility] [address] [address]Dr. Lisa Martinez Lymphocytes/100 WBC (Bld) 9.8 % Critically low 20.5-60.0 [facility] Comment on above: Performed By: #### C BC ####[facility] [address] [address]Dr. Lisa Martinez MANUAL DIFF REQ NO Normal [facility] Comment on above: Performed By: #### C BC ####[facility] [address] [address]Dr. Lisa Martinez MCH (RBC) [Entitic mass] 30.0 pg Normal 26.7-34.0 [facility] Comment on above: Performed By: #### C BC ####[facility] [address] [place], [place] [address]Dr. Lisa Martinez MCHC (RBC) [Mass/Vol] 32.7 g/dL Normal 29.9-35.2 [facility] Comment on above: Performed By: #### C BC ####[facility] [address] [place], [place] [address]Dr. Lisa Martinez MCV (RBC) [Entitic vol] 91.8 fL Normal 81.0-99.0 [facility] Comment on above: Performed By: #### C BC ####[facility] [address] [place], [place] [address]Dr. Lisa Martinez MONO # 1.2 103/ul Critically high 0.3-0.8 [facility] Comment on above: Performed By: #### C BC ####[facility] [address] [place], [place] [address]Dr. Lisa Martinez Monocytes/100 WBC (Bld) 15.0 % Critically high 1.7-12.0 [facility] Comment on above: Performed By: #### C BC ####[facility] [address] [place], [place] [address]Dr. Lisa Martinez NEUT # 5.8 103/ul Normal 1.4-6.5 [facility] Comment on above: Performed By: #### C BC ####[facility] [address] [address]Dr. Lisa Martinez Neutrophils/100 WBC (Bld) 71.8 % Normal 43.0-75.0 [facility] Comment on above: Performed By: #### C BC ####[facility] [address] [address]Dr. Lisa Martinez Platelet mean volume (Bld) [Entitic vol] 10.5 fL Normal 9.5-13.5 [facility] Comment on above: Performed By: #### C BC ####[facility] [address] [address]Dr. Lisa Martinez PLT 242 103/ul Normal 150-450 [facility] Comment on above: Performed By: #### C BC ####[facility] [address] [address]Dr. Lisa Martinez RBC 4.73 106/ul Normal 4.20-5.40 [facility] Comment on above: Performed By: #### C BC ####[facility] [address] [address]Dr. Lisa Martinez WBC 8.1 103/ul Normal 4.0-11.0 [facility] Comment on above: Performed By: #### C BC ####[facility] [address]Dr. Lisa Martinez CT HEAD WO CONon 04-30-2022 [...] MEENA HAWKINS Date: 2022-04-30 07:46 Normal [facility] CULTURE BLOODon 04-30-2022 Microscopic examination of blood, culture Culture Observations: NO GROWTH AT 5 DAYS. Normal [facility] Comment on above: Performed By: #### B LDCX2 #### [facility] [address] [address] [address] Lisa Martinez Microscopic examination of blood, culture Culture Observations: NO GROWTH AT 5 DAYS. Normal [facility] Comment on above: Performed By: #### B LDCX1 ####[facility] [address] [address]Dr. Lisa Martinez CULTURE URINEon 04-30-2022 CULTURE URINE Culture Observations : No growth Normal [facility] Comment on above: Performed By: #### U RCX ####[facility] [address] [address]DrIngrid Martinez Covid-19 PCR (CVDTBH)on 04-09 SARS-CoV-2 (COVID-19) RNA RACIEL+probe Ql (Unsp spec) Detected Critically abnormal NOT DETECTED [facility] Comment on above: Result Comment: This test is not yet approved or cleared by the [place] FDA. When there are no FDA-approved or cleared tests available, and other criteria are met, FDA can make tests available under an emergency access mechanism called an Emergency Use Authorization (EUA). The EUA for this test is supported by the [place] of Health and Human Service's declaration that [...] used). Performed By: #### C VDTBH #### [facility] [address] [address] [address] Lisa Martinez ER URINE PROFILEon 2 Bilirubin Ql (U) Negative Normal NEGATIVE [facility] Comment on above: Performed By: #### C BC #### [facility] [address] [place] [address] Dr. Lisa Martinez Clarity (U) CLEAR Normal CLEAR [facility] Comment on above: Performed By: #### C BC #### [facility] [address] [place] [address] Dr. Lisa Martinez Color (U) LT. YELLOW Normal YELLOW [facility] Comment on above: Performed By: #### C BC #### [facility] [address] [place] [address] Dr. Lisa SMITH A micrscopic examination will be performed if indicated. Normal [facility] Comment on above: Performed By: #### C BC #### [facility] [address] [place] [address] Dr. Lisa Martinez Glucose Ql (U) Negative Normal NEGATIVE [facility] Comment on above: Performed By: #### C BC #### [facility] [address] [place] [address] Dr. Lisa Martinez Hemoglobin Ql (U) Negative Normal NEGATIVE [facility] Comment on above: Performed By: #### C BC #### [facility] [address] [place] [address] Dr. Lisa Martinez Ketones Ql (U) Negative Normal NEGATIVE [facility] Comment on above: Performed By: #### C BC #### [facility] [address] [place] [address] Dr. Lisa Martinez LEUKOCYTES Negative Normal NEGATIVE [facility] Comment on above: Performed By: #### C BC #### [facility] [address] [place] [address] Dr. Lisa Martinez Nitrite Ql (U) Positive Abnormal NEGATIVE [facility] Comment on above: Performed By: #### C BC #### [facility] [address] [place] [address] Dr. Lisa Martinez pH (U) 5.5 [pH] Normal 5-9 [facility] Comment on above: Performed By: #### C BC #### [facility] [address] [address] [address] Lisa Martinez SPEC GRAVITY 1.030 Abnormal 1.005-<=1.025 [facility] Comment on above: Performed By: #### C BC #### [facility] [address] [address] [address] Lisa Martinez UA PROTEIN Negative Normal NEGATIVE/ TRACE [facility] Comment on above: Performed By: #### C BC #### [facility] [address] [address] [address] Lisa Martinez UR MICRO IND INDICATED Normal [facility] Comment on above: Performed By: #### C BC #### [facility] [address] [place] [address] Dr. Lisa Martinez Urobilinogen Qn (U) 0.2 {Mike'U}/dL Normal 0.2 - 1.0 [facility] Comment on above: Performed By: #### C BC #### [facility] [address] [place] [address] Dr. Lisa Martinez GLYCOHEMOGLOBIN A1Con 2021 ADA RECOMMENDATION SEE BELOW Normal [facility] Comment on above: Result Comment: ADA RECOMMENDED LIMIT 4.0 - 6.0 ADA THERAPEUTIC TARGET < 7.0 ACTION SUGGESTED > 7.0 Performed By: #### B CNMT, BMP #### [facility] [address] [place] [address] Dr. Lisa Martinez Glucose [Mass/Vol] 154 mg/dL Normal [facility] Comment on above: Performed By: #### B CNMT, BMP #### [facility] [address] [place] [address] Dr. Lisa Martinez HbA1c (Bld) [Mass fraction] 7.0 % Critically high 4.5-6.2 [facility] Comment on above: Performed By: #### B CNMT, BMP #### [facility] [address] [place] [address] Dr. Lisa Martinez LACTATE/LACTIC ACIDon 2021 Lactate [Moles/Vol] 1.1 mmol/L Normal 0.4-1.9 [facility] Comment on above: Performed By: #### L ACT ####[facility] [address] [address]Dr. Lisa Martinez LIPASEon 04-30-2022 Lipase [Catalytic activity/Vol] 53.0 U/L Critically low 73.0-393.0 [facility] Comment on above: Performed By: #### B CNMT, BMP #### [facility] [address] [address] [address] Lisa Martinez LIVER PROFILEon 04-30-2022 Albumin [Mass/Vol] 3.4 g/dL Normal 3.4-5.0 [facility] Comment on above: Performed By: #### U RCX #### [facility] [address] [place] [address] Dr. Lisa Martinez Albumin/Globulin [Mass ratio] 0.7 {ratio} Normal [facility] Comment on above: Performed By: #### U RCX #### [facility] [address] [place] [address] Dr. Lisa Martinez ALP [Catalytic activity/Vol] 110 U/L Normal 46-116 [facility] Comment on above: Performed By: #### U RCX #### [facility] [address] [place] [address] Dr. Lisa Martinez ALT [Catalytic activity/Vol] 20 U/L Normal 14-59 [facility] Comment on above: Performed By: #### U RCX #### [facility] [address] [place] [address] Dr. Lisa Martinez AST [Catalytic activity/Vol] 16 U/L Normal 15-37 [facility] Comment on above: Performed By: #### U RCX #### [facility] [address] [address] [address] Lisa Martinez BILI, CONJUGATED 0.2 mg/dL Normal 0.0-0.2 [facility] Comment on above: Performed By: #### U RCX #### [facility] [address] [place] [address] Dr. Lisa Martinez Bilirubin [Mass/Vol] 0.7 mg/dL Normal 0.2-1.0 [facility] Comment on above: Performed By: #### U RCX #### [facility] [address] [place] [address] Dr. Lisa Martinez Globulin (S) [Mass/Vol] 5.0 g/dL Normal [facility] Comment on above: Performed By: #### U RCX #### [facility] [address] [place] [address] Dr. Lisa Martinez Protein [Mass/Vol] 8.4 g/dL Critically high 6.4-8.2 [facility] Comment on above: Performed By: #### U RCX #### [facility] [address] [place] [address] Dr. Lisa Martinez POINT OF CARE GLUCOSEon 04-09 Glucose [Mass/Vol] 203 mg/dL Critically high 74-106 [facility] Comment on above: Performed By: #### B CNMT, BMP #### [facility] [address] [place] [address] Dr. Lisa Martinez Glucose [Mass/Vol] 174 mg/dL Critically high -106 [facility] Comment on above: Performed By: #### C BC #### [facility] [address] [place] [address] Dr. Lisa Martinez Glucose [Mass/Vol] 149 mg/dL Critically high -106 [facility] Comment on above: Performed By: #### B LDCX2 #### [facility] [address] [place] [address] Dr. Lisa Martinez PROF CHEM 8 (BAS METB)on Anion gap [Moles/Vol] 15.3 mmol/L Normal [facility] Comment on above: Performed By: #### C BC #### [facility] [address] [place] [address] Dr. Lisa Martinez Calcium [Mass/Vol] 9.1 mg/dL Normal 8.5-10.1 [facility] Comment on above: Performed By: #### C BC #### [facility] [address] [place] [address] Dr. Lisa Martinez Chloride [Moles/Vol] 98 mmol/L Normal 98-107 [facility] Comment on above: Performed By: #### C BC #### [facility] [address] [place] [address] Dr. Lisa Martinez CO2 [Moles/Vol] 24.4 mmol/L Normal 21.0-32.0 [facility] Comment on above: Performed By: #### C BC #### [facility] [address] [address] [address] Lisa Martinez Creatinine [Mass/Vol] 1.44 mg/dL Critically high 0.55-1.02 [facility] Comment on above: Performed By: #### C BC #### [facility] [address] [place] [address] Dr. Lisa Martinez EGFR-AF SAMMARINESE 42 mL/min/1.73m2 Critically low >=60 [facility] Comment on above: Performed By: #### C BC #### [facility] [address] [place] [address] Dr. Lisa Martinez EGFR-NON AF SAMMARINESE 35 mL/min/1.73m2 Critically low >=60 [facility] Comment on above: Performed By: #### C BC #### [facility] [address] [place] [address] Dr. Lisa Martinez Glucose [Mass/Vol] 225 mg/dL Critically high 74-106 [facility] Comment on above: Performed By: #### C BC #### [facility] [address] [place] [address] Dr. Lisa Martinez Potassium [Moles/Vol] 4.7 mmol/L Normal 3.5-5.1 [facility] Comment on above: Performed By: #### C BC #### [facility] [address] [place] [address] Dr. Lisa Martinez Sodium [Moles/Vol] 133 mmol/L Critically low 136-145 [facility] Comment on above: Performed By: #### C BC #### [facility] [address] [place] [address] Dr. Lisa Martinez Urea nitrogen [Mass/Vol] 37.0 mg/dL Critically high 7.0-18.0 [facility] Comment on above: Performed By: #### C BC #### [facility] [address] [place] [address] Dr. Lisa Martinez Urea nitrogen/Creatinin e [Mass ratio] 25.7 mg/mg Normal [facility] Comment on above: Performed By: #### C BC #### [facility] [address] [place] [address] Dr. Lisa Martinez PROTIMEon 04-30-2022 INR Coag (PPP) [Relative time] 1.02 {INR} Normal [facility] Comment on above: Performed By: #### K U #### [facility] [address] [place] [address] Dr. Lisa Martinez INR GUIDELINES SEE BELOW Normal [facility] Comment on above: Result Comment: ANTONY RED INR: 2.0 - 3.0 CONDITIONS NOT LISTED BELOW 2.5 - 3.5 FOR PROSTHETIC HEART VALVE REPLACEMENT 2.5 - 3.5 RECURRENT THROMBOSIS Performed By: #### K U #### [facility] [address] [place] [address] Dr. Lisa Martinez PT Coag (PPP) [Time] 11.0 s Normal 9.0-11.6 [facility] Comment on above: Performed By: #### K U #### [facility] [address] [place] [address] Dr. Lisa Martinez PTTon 04-30-2022 aPTT Coag (Bld) [Time] 27.5 s Normal 22.3-36.2 [facility] Comment on above: Performed By: #### K U #### [facility] [address] [place] [address] Dr. Lisa Martinez TROPONIN, HIGH SENSITIVITYon 04-30-2022 HSTROP 20.0 pg/mL Normal 4.0-51.3 [facility] Comment on above: Result Comment: CUT- OFF POINTS HAVE BEEN ESTABLISHED BASED ON THE FOURTH UNIVERSAL DEFINITIONS OF MYOCARDIAL INFARCTION. THE UPPER REFERENCE LIMIT (URL) OF TROPONIN, DEFINED THE 99TH PERCENTILE OF cTnI DISTRIBUTION IN A REFERENCE POPULATION, HAS BEEN CONFIRMED THE DECISION THRESHOLD FOR GA DIAGNOSIS. Performed By: #### U RCX #### [facility] [address] [place] [address] Dr. Lisa Martinez URINE MICROSCOPIC ONLYon BACTERIA MODERATE Abnormal NONE SEEN [facility] Comment on above: Performed By: #### K U #### [facility] [address] [place] [address] Dr. Lisa Martinez Bacteria identified Cx Nom (U) INDICATED Normal [facility] Comment on above: Performed By: #### K U #### [facility] [address] [place] [address] Dr. Lisa Martinez CAST NONE SEEN Normal NONE SEEN [facility] Comment on above: Performed By: #### K U #### [facility] [address] [place] [address] Dr. Lisa Martinez Crystals LM Nom (Urine sed) NONE SEEN Normal NONE SEEN [facility] Comment on above: Performed By: #### K U #### [facility] [address] [place] [address] Dr. Lisa Martinez Epithelial cells LM Ql (Urine sed) RARE Normal NONE SEEN /RARE [facility] Comment on above: Performed By: #### K U #### [facility] [address] [place] [address] Dr. Lisa Martinez MUCOUS NONE SEEN Normal NONE SEEN [facility] Comment on above: Performed By: #### K U #### [facility] [address] [place] [address] Dr. Lisa Martinez RBC NONE SEEN Abnormal 0-2 [facility] Comment on above: Performed By: #### K U #### [facility] [address] [place] [address] Dr. Lisa Martinez WBC 0-2 Abnormal NONE SEEN [facility] Comment on above: Performed By: #### K U #### [facility] [address] [place] [address] Dr. Lisa Martinez XR CHEST 1 Von [...] by: MEENA HAWKINS Date: 2022-04-30 07:42 Normal [facility] FREE T3on 04-12-2022 FREE T3 2.10 pg/mlL Critically low 2.18-3.98 [facility] Comment on above: Performed By: #### C VDTBH #### [facility] [address] [place] [address] Dr. Lisa Martinez FREE T4on 04-12-2022 Free T4 [Mass/Vol] 0.88 ng/dL Normal 0.76-1.46 [facility] Comment on above: Performed By: #### B LDCX2 #### [facility] [address] [place] [address] Dr. Lisa Martinez TSHon 04-12-2022 TSH 5.007 uIU/mL Critically high 0.358-3.740 [facility] Comment on above: Performed By: #### C VDTBH #### [facility] [address] [place] [address] Dr. Lisa Martinez US THYROIDon 04-12-2022 US [...] MEENA HAWKINS Date: 2022-04-12 13:20 Normal [facility] CBC AUTO DIFFon 02-12-2022 BASO # 0.1 103/ul Normal 0.0-0.1 [facility] Comment on above: Performed By: #### K U #### [facility] [address] [address] [address] Lisa Martinez Basophils/100 WBC (Bld) 0.7 % Normal 0.2-2.0 [facility] Comment on above: Performed By: #### K U #### [facility] [address] [place] [address] Dr. Lisa Martinez EO # 0.3 103/ul Normal 0.0-0.7 [facility] Comment on above: Performed By: #### K U #### [facility] [address] [place] [address] Dr. Lisa Martinez Eosinophils/100 WBC (Bld) 3.3 % Normal 0.9-7.0 [facility] Comment on above: Performed By: #### K U #### [facility] [address] [place] [address] Dr. Lisa Martinez Erythrocyte distribution width (RBC) [Ratio] 13.0 % Normal 11.0-15.0 [facility] Comment on above: Performed By: #### K U #### [facility] [address] [place] [address] Dr. Lisa Martinez Hematocrit (Bld) [Volume fraction] 34.6 % Critically low 36.0-48.0 [facility] Comment on above: Performed By: #### K U #### [facility] [address] [place] [address] Dr. Lisa Martinez Hemoglobin (Bld) [Mass/Vol] 11.1 g/dL Critically low 12.0-16.0 [facility] Comment on above: Performed By: #### K U #### [facility] [address] [place] [address] Dr. Lisa Martinez IG # 0.04 10e3/ul Critically high 0.00-0.03 [facility] Comment on above: Performed By: #### K U #### [facility] [address] [place] [address] Dr. Lisa Martinez IG % 0.4 % Normal 0.0-0.5 [facility] Comment on above: Performed By: #### K U #### [facility] [address] [address] [address] Lisa Martinez LYMPH # 1.0 103/ul Critically low 1.2-3.8 [facility] Comment on above: Performed By: #### K U #### [facility] [address] [place] [address] Dr. Lisa Martinez Lymphocytes/100 WBC (Bld) 10.6 % Critically low 20.5-60.0 [facility] Comment on above: Performed By: #### K U #### [facility] [address] [place] [address] Dr. Lisa Martinez MANUAL DIFF REQ NO Normal [facility] Comment on above: Performed By: #### K U #### [facility] [address] [place] [address] Dr. Lisa Martinez MCH (RBC) [Entitic mass] 31.3 pg Normal 26.7-34.0 [facility] Comment on above: Performed By: #### K U #### [facility] [address] [place] [address] Dr. Lisa Martinez MCHC (RBC) [Mass/Vol] 32.1 g/dL Normal 29.9-35.2 [facility] Comment on above: Performed By: #### K U #### [facility] [address] [place] [address] Dr. Lisa Martinez MCV (RBC) [Entitic vol] 97.5 fL Normal 81.0-99.0 [facility] Comment on above: Performed By: #### K U #### [facility] [address] [place] [address] Dr. Lisa Martinez MONO # 0.9 103/ul Critically high 0.3-0.8 [facility] Comment on above: Performed By: #### K U #### [facility] [address] [place] [address] Dr. Lisa Martinez Monocytes/100 WBC (Bld) 9.5 % Normal 1.7-12.0 [facility] Comment on above: Performed By: #### K U #### [facility] [address] [address] [address] Lisa Martinez NEUT # 6.9 103/ul Critically high 1.4-6.5 [facility] Comment on above: Performed By: #### K U #### [facility] [address] [place] [address] Dr. Lisa Martinez Neutrophils/100 WBC (Bld) 75.5 % Critically high 43.0-75.0 [facility] Comment on above: Performed By: #### K U #### [facility] [address] [place] [address] Dr. Lisa Martinez Platelet mean volume (Bld) [Entitic vol] 9.9 fL Normal 9.5-13.5 [facility] Comment on above: Performed By: #### K U #### [facility] [address] [place] [address] Dr. Lisa Martinez PLT 255 103/ul Normal 150-450 [facility] Comment on above: Performed By: #### K U #### [facility] [address] [place] [address] Dr. Lisa Martinez RBC 3.55 106/ul Critically low 4.20-5.40 [facility] Comment on above: Performed By: #### K U #### [facility] [address] [address] [address] Lisa Martinez WBC 9.2 103/ul Normal 4.0-11.0 [facility] Comment on above: Performed By: #### K U #### [facility] [address] [place] [address] Dr. Lisa Martinez CRPon 02-12-2022 CRP 0.7 mg/dL Normal <=1.0 [facility] Comment on above: Performed By: #### B CNMT, BMP #### [facility] [address] [address] [address] Lisa Martinez SED RATE WESTERGRENon 2021 SED RATE 56 mm/hr Critically high <=30 [facility] Comment on above: Performed By: #### S EDR ####[facility] [address] [address]Dr. Lisa Martinez URIC ACID SERUMon 02-12-2022 Urate [Mass/Vol] 9.2 mg/dL Critically high 2.6-6.0 [facility] Comment on above: Performed By: #### B CNMT, BMP #### [facility] [address] [place] [address] Dr. Lisa Martinez XR FOOT LT MIN [...] TYLER MENENDEZ Date: 2022-02-12 13:01 Normal [facility] HEMOGRAM AND PLATELon 2021 Hematocrit (Bld) [Volume fraction] 35.7 % Critically low 36.0-48.0 [facility] Comment on above: Performed By: #### U RCX #### [facility] [address] [place] [address] Dr. Lisa Martinez Hemoglobin (Bld) [Mass/Vol] 11.7 g/dL Critically low 12.0-16.0 [facility] Comment on above: Performed By: #### U RCX #### [facility] [address] [place] [address] Dr. Lisa Martinez MCH (RBC) [Entitic mass] 31.5 pg Normal 26.7-34.0 [facility] Comment on above: Performed By: #### U RCX #### [facility] [address] [address] [address] Lisa Martinez MCHC (RBC) [Mass/Vol] 32.8 g/dL Normal 29.9-35.2 [facility] Comment on above: Performed By: #### U RCX #### [facility] [address] [address] [address] Lisa Martinez MCV (RBC) [Entitic vol] 96.2 fL Normal 81.0-99.0 [facility] Comment on above: Performed By: #### U RCX #### [facility] [address] [address] [address] Lisa Martinez PLT 268 103/ul Normal 150-450 [facility] Comment on above: Performed By: #### U RCX #### [facility] [address] [address] [address] Lisa Martinez RBC 3.71 106/ul Critically low 4.20-5.40 [facility] Comment on above: Performed By: #### U RCX #### [facility] [address] [address] [address] Lisa Martinez WBC 9.3 103/ul Normal 4.0-11.0 [facility] Comment on above: Performed By: #### U RCX #### [facility] [address] [place] [address] Dr. Lisa Martinez PROF CHEM 8 (BAS METB)on Anion gap [Moles/Vol] 11.2 mmol/L Normal [facility] Comment on above: Performed By: #### C VDTBH #### [facility] [address] [place] [address] Dr. Lisa Martinez Calcium [Mass/Vol] 9.1 mg/dL Normal 8.5-10.1 [facility] Comment on above: Performed By: #### C VDTBH #### [facility] [address] [place] [address] Dr. Lisa Martinez Chloride [Moles/Vol] 104 mmol/L Normal 98-107 [facility] Comment on above: Performed By: #### C VDTBH #### [facility] [address] [address] [address] Lisa Martinez CO2 [Moles/Vol] 30.6 mmol/L Normal 21.0-32.0 [facility] Comment on above: Performed By: #### C VDTBH #### [facility] [address] [address] [address] Lisa Martinez Creatinine [Mass/Vol] 1.64 mg/dL Critically high 0.55-1.02 [facility] Comment on above: Performed By: #### C VDTBH #### [facility] [address] [address] [address] Lisa Martinez EGFR-AF SAMMARINESE 36 mL/min/1.73m2 Critically low >=60 [facility] Comment on above: Performed By: #### C VDTBH #### [facility] [address] [place] [address] Dr. Lisa Martinez EGFR-NON AF SAMMARINESE 30 mL/min/1.73m2 Critically low >=60 [facility] Comment on above: Performed By: #### C VDTBH #### [facility] [address] [address] [address] Lisa Martinez Glucose [Mass/Vol] 61 mg/dL Critically low 74-106 [facility] Comment on above: Performed By: #### C VDTBH #### [facility] [address] [address] [address] Lisa Martinez Potassium [Moles/Vol] 4.8 mmol/L Normal 3.5-5.1 [facility] Comment on above: Performed By: #### C VDTBH #### [facility] [address] [address] [address] Lisa Martinez Sodium [Moles/Vol] 141 mmol/L Normal 136-145 [facility] Comment on above: Performed By: #### C VDTBH #### [facility] [address] [address] [address] Lisa Martinez Urea nitrogen [Mass/Vol] 34.0 mg/dL Critically high 7.0-18.0 [facility] Comment on above: Performed By: #### C VDTBH #### [facility] [address] [place], [place] [address] Dr. Lisa Martinez Urea nitrogen/Creatinin e [Mass ratio] 20.7 mg/mg Normal [facility] Comment on above: Performed By: #### C VDTBH #### [facility] [address] [place], [place] [address] Dr. Lisa Martinez Cardiovascular Lab Reporton 12-21-2021 Cardiovascular Lab Report [facility] Patient Name: Jenni Villegas [facility] MR #: [id number] Physician: Josefina Weston of [facility] Service Date: 12/20/2021 Division of Birthdate: 1940 Cardiology Room #: [facility] Cardiovascular Services [address] [address] Cardiovascular Laboratory Report INDICATION: The patient is [...] the consent. She was brought to the lab associate in a fasting state. The right neck area was prepped and draped in usual fashion. Micropuncture technique and ultrasound guidance were used for access in the right internal jugular vein. A 6-Prydeinig x 11 cm sheath was placed. A 6-Prydeinig Becker catheter was used for right heart [...] Chao M.D. Date Trans: 12/21/2021 06:38 A/kali [id number] cc: Jasvir León M.D. [address] [address] Normal [facility]07 SARS-CoV-2 (COVID-19) RNA RACIEL+probe Ql (Unsp spec) Not detected Normal NOT DETECTED [facility] Comment on above: Result Comment: This test is not yet approved or cleared by the [place] FDA. When there are no FDA-approved or cleared tests available, and other criteria are met, FDA can make tests available under an emergency access mechanism called an Emergency Use Authorization (EUA). The EUA for this test is supported by the [place] of Health and Human Service's (HHS's) declaration [...] SARS-CoV-2. Performed By: #### K U #### [facility] [address] [address] [address] Lisa Martinez HEMOGRAM AND PLATELon 2021 Hematocrit (Bld) [Volume fraction] 37.7 % Normal 36.0-48.0 [facility] Comment on above: Performed By: #### H H ####[facility] [address] [address]DrIngrid Martinez Hemoglobin (Bld) [Mass/Vol] 11.8 g/dL Critically low 12.0-16.0 [facility] Comment on above: Performed By: #### H H ####[facility] [address] [address]DrIngrid Martinez MCH (RBC) [Entitic mass] 30.7 pg Normal 26.7-34.0 [facility] Comment on above: Performed By: #### H H ####[facility] [address] [address]DrIngrid Martinez MCHC (RBC) [Mass/Vol] 31.3 g/dL Normal 29.9-35.2 [facility] Comment on above: Performed By: #### H H ####[facility] [address] [address]DrIngrid Martinez MCV (RBC) [Entitic vol] 98.2 fL Normal 81.0-99.0 [facility] Comment on above: Performed By: #### H H ####[facility] [address] [address]DrIngrid Martinez PLT 238 103/ul Normal 150-450 [facility] Comment on above: Performed By: #### H H ####[facility] [address] [address]DrIngrid Martinez RBC 3.84 106/ul Critically low 4.20-5.40 [facility] Comment on above: Performed By: #### H H ####[facility] [address] [address]Dr. Lisa Martinez WBC 8.6 103/ul Normal 4.0-11.0 [facility] Comment on above: Performed By: #### H H ####[facility] [address] [address]Dr. Lisa Martinez PROF CHEM 8 (BAS METB)on Anion gap [Moles/Vol] 13.7 mmol/L Normal [facility] Comment on above: Performed By: #### B MP ####[facility] [address] [address]Dr. Lisa Martinez Calcium [Mass/Vol] 9.1 mg/dL Normal 8.5-10.1 [facility] Comment on above: Performed By: #### B MP ####[facility] [address] [place], [place] [address]Dr. Lisa Martinez Chloride [Moles/Vol] 107 mmol/L Normal 98-107 [facility] Comment on above: Performed By: #### B MP ####[facility] [address] [place], [place] [address]Dr. Fabianacahpis Martinez CO2 [Moles/Vol] 26.9 mmol/L Normal 21.0-32.0 [facility] Comment on above: Performed By: #### B MP ####[facility] [address] [address]Dr. Lisa Martinez Creatinine [Mass/Vol] 1.48 mg/dL Critically high 0.55-1.02 [facility] Comment on above: Performed By: #### B MP ####[facility] [address] [address]Dr. Lisa Martinez EGFR-AF SAMMARINESE 41 mL/min/1.73m2 Critically low >=60 [facility] Comment on above: Performed By: #### B MP ####[facility] [address] [place], [place] [address]Dr. Lisa Martinez EGFR-NON AF SAMMARINESE 34 mL/min/1.73m2 Critically low >=60 [facility] Comment on above: Performed By: #### B MP ####[facility] [address] [address]Dr. Lisa Martinez Glucose [Mass/Vol] 161 mg/dL Critically high 74-106 [facility] Comment on above: Performed By: #### B MP ####[facility] [address] [address]Dr. Lisa Martinez Potassium [Moles/Vol] 4.6 mmol/L Normal 3.5-5.1 [facility] Comment on above: Performed By: #### B MP ####[facility] [address] [address]Dr. Lisa Martinez Sodium [Moles/Vol] 143 mmol/L Normal 136-145 [facility] Comment on above: Performed By: #### B MP ####[facility] [address] [address]Dr. Lisa Martinez Urea nitrogen [Mass/Vol] 35.0 mg/dL Critically high 7.0-18.0 [facility] Comment on above: Performed By: #### B MP ####[facility] [address] [address]Dr. Lisa Martinez Urea nitrogen/Creatinin e [Mass ratio] 23.6 mg/mg Normal [facility] Comment on above: Performed By: #### B MP ####[facility] [address] [address]Dr. Lisa Martinez Comprehensive Metabolic Pane yesica 08-17-2021 Albumin [Mass/Vol] 4.4 g/dL Normal 3.6-5.1 [facility] Comment on above: Performed By: #### C MP #### [facility] [address] [place], [place] [id number] Albumin/Globulin [Mass ratio] 1.4 {ratio} Normal 1.0-2.5 [facility] [facility] Comment on above: Performed By: #### C MP #### [facility] [address], [place] [id number] ALP [Catalytic activity/Vol] 89 U/L Normal 35-119 [facility] Comment on above: Performed By: #### C MP #### [facility] [address] [place], [place] [id number] ALT [Catalytic activity/Vol] 13 U/L Normal 6-33 [facility] Comment on above: Result Comment: 06/08 Female reference range changed. Performed By: #### C MP #### [facility] [address] [place], [place] [id number] Anion gap [Moles/Vol] 18 mmol/L Normal 12-20 [facility] Comment on above: Result Comment: Effe ctive 07/14/2019 reference range changed. Performed By: #### C MP #### [facility] [address] [place], [place] [id number] AST [Catalytic activity/Vol] 20 U/L Normal 9-34 [facility] Comment on above: Performed By: #### C MP #### [facility] [address] [place], [place] [id number] Bilirubin [Mass/Vol] 0.34 mg/dL Normal 0.30-1.20 [facility] Comment on above: Performed By: #### C MP #### [facility] [address] [place], [place] [id number] BUN/CREA 28 Ratio High 6-22 [facility] Comment on above: Performed By: #### C MP #### [facility] [address] [place], [place] [id number] Calcium [Mass/Vol] 9.8 mg/dL Normal 8.6-10.2 [facility] Comment on above: Performed By: #### C MP #### [facility] [address] [place], [place] [id number] Chloride [Moles/Vol] 106 mmol/L Normal 98-107 [facility] Specialist Comment on above: Performed By: #### C MP #### [facility] [address] [place], [place] [id number] CO2 [Moles/Vol] 23 mmol/L Normal 20-31 [facility] Comment on above: Performed By: #### C MP #### [facility] [address] [place], [place] [id number] Creatinine [Mass/Vol] 1.1 mg/dL Normal 0.6-1.4 [facility] Comment on above: Performed By: #### C MP #### [facility] [address] [place], [place] [id number] eGFRAA 59 mL/min/1.73m2 Low >60 [facility] Comment on above: Performed By: #### C MP #### [facility] [address] [place], [place] [id number] eGFRNAA 49 mL/min/1.73m2 Low >60 [facility] Comment on above: Performed By: #### C MP #### [facility] [address] [place], [place] [id number] Globulin (S) [Mass/Vol] 3.2 g/dL Normal 1.9-3.7 [facility] Comment on above: Performed By: #### C MP #### [facility] [address] [place], [place] [id number] Glucose [Mass/Vol] 51 mg/dL Low 65-99 [facility] Comment on above: Result Comment: For FASTING Glucose --- ADA reference ranges: Normal 65-99 mg/dl Prediabetes 100-125 Diabetes >/= 126 Performed By: #### C MP #### [facility] [address] [place], [place] [id number] Potassium [Moles/Vol] 4.5 mmol/L Normal 3.5-5.5 [facility] Comment on above: Performed By: #### C MP #### [facility] [address] [place], [place] [id number] Protein [Mass/Vol] 7.6 g/dL Normal 6.1-8.1 [facility] Comment on above: Performed By: #### C MP #### [facility] [address] [place], [place] [id number] Sodium [Moles/Vol] 143 mmol/L Normal 135-146 [facility] Comment on above: Performed By: #### C MP #### [facility] [address] [place], [place] [id number] Urea nitrogen [Mass/Vol] 31 mg/dL High 7-25 [facility] Comment on above: Performed By: #### C MP #### [facility] [address] [place], [place] [id number] Complete Blood Counton 08-03 Erythrocyte distribution width (RBC) [Ratio] 13.2 % Normal 11.0-15.0 [facility] Comment on above: Performed By: #### C BC, TSH, FT3, FT4, CMP #### [facility] [address] [place], [place] [id number] Hematocrit (Bld) [Volume fraction] 36.6 % Normal 35.0-47.0 [facility] Comment on above: Performed By: #### C BC, TSH, FT3, FT4, CMP #### [facility] [address] [place], [place] [id number] Hemoglobin (Bld) [Mass/Vol] 11.4 g/dL Low 11.6-15.5 [facility] Comment on above: Performed By: #### C BC, TSH, FT3, FT4, CMP #### [facility] [address] [place], [place] [id number] MCH (RBC) [Entitic mass] 31.1 pg Normal 27.0-33.0 [facility] Comment on above: Performed By: #### C BC, TSH, FT3, FT4, CMP #### [facility] [address] [place], [place] [id number] MCHC (RBC) [Mass/Vol] 31.1 g/dL Low 32.0-36.0 [facility] Comment on above: Performed By: #### C BC, TSH, FT3, FT4, CMP #### [facility] [address] [place], [place] [id number] MCV (RBC) [Entitic vol] 100 fL Normal 80-100 [facility] Comment on above: Performed By: #### C BC, TSH, FT3, FT4, CMP #### [facility] [address] [place], [place] [id number] Platelet mean volume (Bld) [Entitic vol] 10.10 fL Normal 7.50-12.50 [facility] Comment on above: Performed By: #### C BC, TSH, FT3, FT4, CMP #### [facility] [address] [place], [place] [id number] Platelets (Bld) [#/Vol] 245 10*3/uL Normal 140-400 [facility] Specialist Comment on above: Performed By: #### C BC, TSH, FT3, FT4, CMP #### [facility] [address] [place], [place] [id number] RBC (Bld) [#/Vol] 3.66 10*6/uL Low 3.90-5.20 [facility] Comment on above: Performed By: #### C BC, TSH, FT3, FT4, CMP #### [facility] [address] [place], [place] [id number] RDW-SD 48.1 fL Normal 37.0-50.0 [facility] Specialist Comment on above: Performed By: #### C BC, TSH, FT3, FT4, CMP #### [facility] [address] [place], [place] [id number] WBC (Bld) [#/Vol] 8.7 10*3/uL Normal 3.8-11.0 [facility] Comment on above: Performed By: #### C BC, TSH, FT3, FT4, CMP #### [facility] [address] [place], [place] [id number] [facility] 08-03-2021 Albumin [Mass/Vol] 3.9 g/dL Normal 3.6-5.1 [facility] Comment on above: Performed By: #### C BC, TSH, FT3, FT4, CMP #### [facility] [address] [place], [place] [id number] Albumin/Globulin [Mass ratio] 1.1 {ratio} Normal 1.0-2.5 [facility] Specialist Comment on above: Performed By: #### C BC, TSH, FT3, FT4, CMP #### [facility] [address] [place], [place] [id number] ALP [Catalytic activity/Vol] 105 U/L Normal 35-119 [facility] Specialist Comment on above: Performed By: #### C BC, TSH, FT3, FT4, CMP #### [facility] [address] [place], [place] [id number] ALT [Catalytic activity/Vol] 10 U/L Normal 6-33 [facility] Comment on above: Result Comment: 06/08 Female reference range changed. Performed By: #### C BC, TSH, FT3, FT4, CMP #### [facility] [address] [place], [place] [id number] Anion gap [Moles/Vol] 20 mmol/L Normal 12-20 [facility] Comment on above: Result Comment: Effe ctive 07/14/2019 reference range changed. Performed By: #### C BC, TSH, FT3, FT4, CMP #### [facility] [address] [place], [place] [id number] AST [Catalytic activity/Vol] 19 U/L Normal 9-34 [facility] Comment on above: Performed By: #### C BC, TSH, FT3, FT4, CMP #### [facility] [address] [place], [place] [id number] BUN/CREA 24 Ratio High 6-22 [facility] Comment on above: Performed By: #### C BC, TSH, FT3, FT4, CMP #### [facility] [address] [place], [place] [id number] Calcium [Mass/Vol] 9.6 mg/dL Normal 8.6-10.2 [facility] Comment on above: Performed By: #### C BC, TSH, FT3, FT4, CMP #### [facility] [address] [place], [place] [id number] Chloride [Moles/Vol] 106 mmol/L Normal 98-107 [facility] Comment on above: Performed By: #### C BC, TSH, FT3, FT4, CMP #### [facility] [address] [place], [place] [id number] CO2 [Moles/Vol] 21 mmol/L Normal 20-31 [facility] Comment on above: Performed By: #### C BC, TSH, FT3, FT4, CMP #### [facility] [address] [place], [place] [id number] Creatinine [Mass/Vol] 2.6 mg/dL High 0.6-1.4 [facility] Comment on above: Performed By: #### C BC, TSH, FT3, FT4, CMP #### [facility] [address] [place], [place] [id number] eGFRAA 22 mL/min/1.73m2 Low >60 [facility] Comment on above: Performed By: #### C BC, TSH, FT3, FT4, CMP #### [facility] [address] [place], [place] [id number] eGFRNAA 18 mL/min/1.73m2 Low >60 [facility] Comment on above: Performed By: #### C BC, TSH, FT3, FT4, CMP #### [facility] [address] [place], [place] [id number] Globulin (S) [Mass/Vol] 3.4 g/dL Normal 1.9-3.7 [facility] Comment on above: Performed By: #### C BC, TSH, FT3, FT4, CMP #### [facility] [address] [place], [place] [id number] Glucose [Mass/Vol] 93 mg/dL Normal 65-99 [facility] Comment on above: Result Comment: For FASTING Glucose --- ADA reference ranges: Normal 65-99 mg/dl Prediabetes 100-125 Diabetes >/= 126 Performed By: #### C BC, TSH, FT3, FT4, CMP #### [facility] [address] [place], [place] [id number] Potassium [Moles/Vol] 6.9 mmol/L Critically high 3.5-5.5 [facility] Comment on above: Result Comment: Repo rt given to Dr León (Ragini) Performed By: #### C BC, TSH, FT3, FT4, CMP #### [facility] [address] [place], [place] [id number] Protein [Mass/Vol] 7.3 g/dL Normal 6.1-8.1 [facility] [place] [facility] Comment on above: Performed By: #### C BC, TSH, FT3, FT4, CMP #### [facility] [address] [place], [place] [id number] Sodium [Moles/Vol] 139 mmol/L Normal 135-146 [facility] [place] [facility] Comment on above: Performed By: #### C BC, TSH, FT3, FT4, CMP #### [facility] [address] [place], [place] [id number] TBIL <0.3 Normal [facility] Comment on above: Performed By: #### C BC, TSH, FT3, FT4, CMP #### [facility] [address] [place], [place] [id number] Urea nitrogen [Mass/Vol] 62 mg/dL High 7-25 [facility] Comment on above: Performed By: #### C BC, TSH, FT3, FT4, CMP #### [facility] [address] [place], [place] [id number] Free T3on 08-03-2021 FT3 2.05 pg/mL Normal 2.00-4.40 [facility] Comment on above: Performed By: #### C BC, TSH, FT3, FT4, CMP #### [facility] [address] [place], [place] [id number] Free T4on 08-03-2021 Free T4 [Mass/Vol] 0.91 ng/dL Normal 0.80-1.80 [facility] Comment on above: Performed By: #### C BC, TSH, FT3, FT4, CMP #### [facility] [address] [place], [place] [id number] Q - B-TYPE NATRIURETIC (BNP) on 08-03-2021 Natriuretic peptide B (Bld) [Mass/Vol] 283 pg/mL High <100 [facility] Comment on above: Order Comment: [facility] Testing performed at: [facility] [employer] [facility], [address] [place] [address], [address] [place] [address], [id number], Lithographic Camera Operator: Boone Calderón MD [facility] Collection Date/Time: [id number] [facility] Results Received Date/Time: [facility] Reported Date/Time: Result Comment: BNP levels increase with age in the general population with the highest values seen in individuals greater than 75 years of age. Reference: J. Am. Priya. Cardiol. 2002; 40:976-982. Performed By: #### [id number] #### [facility] [address] [place] [id number] TSHon 08-03-2021 TSH 3.450 uIU/mL Normal 0.400-4.500 [facility] Comment on above: Performed By: #### C BC, TSH, FT3, FT4, CMP #### [facility] [address] [place], [place] [id number] COVID Quick Testingon 2020 Result Negative [email or web address] Other Quick Fluon 06-06-2021 FLUAV Ab CF (S) [Titer] Negative [email or web address] Other FLUBV Ab CF (S) [Titer] Negative [email or web address] Other Vital Signs Date Time Vital Sign Value Performing Clinician Facility 08-07-2023 10:53-0500 Diastolic blood pressure 64 mm[Hg] Kd Macias MD Work Phone: [employer] [facility] 08-07-2023 10:53-0500 Heart rate 109 /min Kd Macias MD Work Phone: [employer] 08-07-2023 10:53-0500 Respiratory rate 18 /min Kd Macias MD Work Phone: [place] [facility] 08-07-2023 10:53-0500 SaO2% (BldA) [Mass fraction] 90 % Kd Macias MD Work Phone: [place] [facility] 08-07-2023 10:53-0500 Systolic blood pressure 94 mm[Hg] Kd Macias MD Work Phone: [employer] 06-06-2021 12:45-0500 Body height 157.48 cm Mariam Ward Other [email or web address] Other 06-06-2021 12:45-0500 Body mass index (BMI) [Ratio] 34.75 kg/m2 Mariam Ginty Other [email or web address] Other 06-06-2021 12:45-0500 Body temperature 96.8 [degF] Mariam Ginty Other [email or web address] Other 06-06-2021 12:45-0500 Body weight 86.18 kg Mariam Ginty Other [email or web address] Other 06-06-2021 12:45-0500 Diastolic blood pressure 78 mm[Hg] Mariam Ginty Other [email or web address] Other 06-06-2021 12:45-0500 SaO2% (BldA) [Mass fraction] 94 % Mariam Ginty Other [email or web address] Other 06-06-2021 12:45-0500 Systolic blood pressure 131 mm[Hg] Mariam Ginty Other [email or web address] Other Encounters Encounter Date Encounter Type Care Provider Facility Start: 02-18-2024 End: 02-18-2024 ambulatory JASVIR LEÓN Not Available Start: 01-07-2024 End: 01-07-2024 ambulatory [facility] Start: 12-26-2023 End: 12-26-2023 ambulatory JASVIR LEÓN Not Available Start: 12-07-2023 End: 12-07-2023 ambulatory FARZANEH ARNDT [facility] Start: 10-09-2023 End: 10-09-2023 ambulatory SARAH RODRIGUEZ Not Available Start: 08-07-2023 End: 08-07-2023 ambulatory KD MACIAS [facility] Start: 08-07-2023 End: 08-07-2023 Subsequent hospital visit by physician Kd Macias MD Work Phone: [facility] Start: 08-02-2023 End: 08-02-2023 ambulatory JASVIR LEÓN Not Available Start: 07-30-2023 End: 07-30-2023 ambulatory DAWOOD PEDROZA Not Available Start: 06-28-2023 End: 06-28-2023 ambulatory ODALYS RUSSO Not Available Start: 05-29-2023 End: 05-29-2023 ambulatory [facility] Start: 05-23-2023 End: 05-23-2023 ambulatory JASVIR LEÓN Not Available Start: 05-14-2023 End: 05-14-2023 ambulatory [facility] Start: 05-09-2023 ambulatory JASVIR LEÓN [facility] Start: 05-09-2023 End: 05-09-2023 ambulatory [facility] Start: 12-06-2022 ambulatory BRENT PERALTA Facility :[facility] Start: 11-13-2022 End: 11-15-2022 Evaluation [...] Encounter for preprocedural laboratory examination GRETTA OMALLEY [facility] Start: 12-20-2021 End: 12-21-2021 ambulatory GRETTA SHAHRAM Facility:[facility] Start: 12-16-2021 End: 12-17-2021 ambulatory GRETTA OMALLEY Facility: Start: 12-16-2021 End: 12-17-2021 Encounter for preprocedural laboratory examination GRETTA HADLEYCKO Facility: Start: 06-06-2021 End: 06-06-2021 ambulatory Mariam Ward Other [email or web address] Other Start: 06-06-2021 Office outpatient vi sit 15 minutes Mariam Ward [facility] Plan of Treatment Date Care Activity Detail Author Start: 08-07-2023 End: 08-07-2023 Njx dx/ther agt pvrt facet jt lmbr/sac 1 level LUMBAR MEDIAL BRANCH BLOCK Lumbar spondylosis 08/07/2023 10:37 AM [facility] Start: 08-07-2023 End: 08-07-2023 Njx dx/ther agt pvrt facet jt lmbr/sac 2nd level LUMBAR MEDIAL BRANCH BLOCK Lumbar spondylosis 08/07/2023 10:37 AM [facility] Start: 06-04-2023 Annual Wellness Visi t (Medicare) Annual Wellness Visit (Medicare) [facility] Start: 1999 Respiratory Syncytia l Virus (RSV) or age 60 yrs+ (1 - 1-dose 60+ series) Respiratory Syncytial Virus (RSV) or age 60 yrs+ (1 - 1-dose 60+ series) [facility] Start: 1958 DTaP/Tdap/Td vaccine (1 - Tdap) DTaP/Tdap/Td vaccine (1 - Tdap) [facility] Start: 1951 Depression Screen Depression Screen [facility] Start: 1949 Lipid panel Lipids [facility] Oxygen therapy [[facility] Data Set] Initiate Oxygen Therapy Protocol Respiratory Care Routine As Needed until discontinued starting 08/07/2023 BRANDO Work Phone: Comment on above: As Needed until disc ontinued starting 08/07/2023 Immunizations Immunization Date Immunization Notes Care Provider Chris green 03-31-2014 tetanus toxoid, reduced diphtheria toxoid, and acellular pertussis vaccine, adsorbed Mariam Ginty Other [email or web address] Other 09-01-2013 tetanus toxoid, reduced diphtheria toxoid, and acellular pertussis vaccine, adsorbed Mariam Ginty Other [email or web address] Other Payers Date Payer Category Payer [employer] others) [id number] 2016 [employer] others) [id number] 2016 [employer] others) [id number] 1959 [employer] ( [employer] others) [id number] 1959 Medicare [id number] 1939 Unknown [id number] 2.16.840.1.985545.3.579.2.647 1939 Unknown [id number] 2.16.840.1.621194.3.579.2.593 1939 Unknown [id number] 2..840.1.263525.3.579.2.593 1939 Unknown [id number] ..840.1.126958.3.579.2.593 1939 Unknown [id number] 2.16.840.1.700709.3.579.2.593 1939 Unknown [id number] 2.16.840.1.413098.3.579.2.593 1939 Unknown [id number] 2.16.840.1.943904.3.579.2.593 1939 Unknown [id number] 2.16.840.1.462367.3.579.2.593 1939 Unknown [id number] 2.16.840.1.105449.3.579.2.593 1939 Unknown [id number] 2.16.840.1.629635.3.579.2.593 1939 Unknown [id number] 2.16.840.1.580967.3.579.2.593 1939 Unknown [id number] 2.16.840.1.562012.3.579.2.593 1939 Unknown [id number] 2.16.840.1.176581.3.579.2.593 1939 Unknown [id number] 2.16.840.1.179223.3.579.2.593 1939 Unknown [id number] 2.16.840.1.025390.3.579.2.593 1939 Unknown [id number] 2..840.1.947699.3.579.2.754 1939 Unknown [id number] 2.16.840.1.388532.3.579.2.754 1939 Unknown [id number] 2.16.840.1.797464.3.579.2.754 1939 Unknown [id number] 2.16.840.1.101794.3.579.2.754 1939 Unknown [id number] 2.16.840.1.529014.3.579.2.1259 1939 Unknown [id number] 2.16.840.1.453607.3.579.2.1259 1939 Unknown [id number] 2.16.840.1.319940.3.579.2.1259 1939 Unknown [id number] 2.16.840.1.137370.3.579.2.1259 1939 Unknown [id number] 2.16.840.1.761459.3.579.2.1259 1939 Unknown [id number] 2.16.840.1.769626.3.579.2.1259 1939 Unknown [id number] 2.16.840.1.489597.3.579.2.1259 Medicare [id number] 2.16 .840.1.814692.19 Social History Date Type Detail Facility Start: 05-30-2023 Sex Assigned At [facility] [employer] Other Start: 05-08-2023 Tobacco smoking status IDIS Ex-smoker [employer] Phone: End: 07-09-1996 History of tobacco use Current smoker [employer] Phone: End: 07-09-1996 History of tobacco use Cigarette Smoker [employer] Phone: Start: 05-08-2023 Tobacco use and exposure Smokeless tobacco non-user [employer] Phone: Start: 05-30-2023 Alcohol intake Ex-drinker (finding) [employer] Phone: Start: 05-30-2023 History of Social function [employer] Phone: Start: 05-08-2023 Alcohol Comment social [employer] Work Phone: Start: 1940 Sex Assigned At Not on file [employer] Work Phone: Medical Equipment Procedure Code Equipment Code Equipment Origin al Text Equipment Identifier Dates [employer] [id number] Start: 05-09-2023 Comment on above: Description: T12 Ref# [id number] by In Vitro route [id number] Clinical Notes 06-06-2021 to 01-07-2024 Carole Loyola LPN - 08/07/2023 10:57 AM ESTDischarge Instructions Note Date & Type Note Facility 01-07-2024 Note [facility] Subjective Jenni Villegas is a 83 y.o. year old female patient being seen for 1 mo follow up chronic systolic heart failure, aortic valve disorder, and hypertension. She was started on Jardiance at last visit in November 2023 by Indigo Arndt CNP. Had labs last week. She was able to come off insulin after starting Jardiance. Continues to deny chest pain, SOB, and lightheadedness/syncope. Palpitations continue to be less frequent. 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 She is a 83-year-old woman. She has history of aortic stenosis status post aortic valve replacement with a 23 mm trifecta tissue valve and surgical exclusion of the left atrial appendage, diastolic heart failure, mild CAD, paroxysmal atrial fibrillation post maze procedure and isolation of the pulmonary veins during the aortic valve replacement surgery. She has history of prior admissions to [facility] with AF/RVR and diastolic heart failure [...] across the bioprosthetic aortic valve. She was previously evaluated in cardiology clinic and an echocardiogram showed progression of aortic valve stenosis. This was further investigated by transesophageal echocardiogram that was done in December 2022 and showed evidence for moderate aortic bioprosthesis stenosis as well as moderate mitral valve stenosis, moderate to severe tricuspid regurgitation and an RVSP of 68 mmHg. She was managed with diuretic therapy intensification with increase in torsemide to 50 mg once daily. In November 2023 she was admitted to the hospital with decompensated diastolic heart failure. Her echocardiogram in October 2023 showed severely elevated right-sided pressures with an RVSP of 77 mmHg. Carvedilol was increased and spironolactone was added. She was then seen in follow-up in November 2023 in our cardiology clinic and Jardiance was added. Today she reports that she has been doing much better. She continues to have some shortness of breath on exertion NYHA class II. No lower extremity edema. She has occasional palpitations. No chest pain. Overall she feels good. Review of Systems Constitutional: P (more content not included)... [facility] 12-07-2023 Note Recently admitted victorina hayes at [facility] for Acute HFrEF and palpitations Coreg was [...] function and electrolytes and she voiced understanding. [facility] II-III Pt is close to euvolemia via assessment today [facility] 12-07-2023 Note aortic valve replace ment with a 23 mm trifecta tissue valve: 2016 Elevated doppler flows noted and severe AO stenosis- will repeat TTE a 6 months to re-evalaute. RTC with Dr Chao D/W pt about red flag symptoms to call 911 and/or office- increased SOB, Palpitations, syncope, chest pain or any concerns and she voiced understanding Continue all medications as prescribed [facility] 12-07-2023 Note Repeat TTE in 6 mirtha hs Pt denied any worsening symptoms since DC from [facility] and diuresis [facility] 12-07-2023 Note Stable, will monitor with routine echocardiogram in 6 months [facility] 12-07-2023 Note [facility] CARDIOLOGY PROGR ESS NOTE HPI: Jenni Villegas is a 83 y.o. female here for routine f/U and review of TTE and ED f/U Patient here for 6 mo follow up aortic and mitral valve stenosis, diastolic heart failure, and permanent afib. She had an echo last month. She presented to [facility] ED a few weeks ago for palpitations. [...] She has history of prior admissions to [facility] with AF/RVR and diastolic heart failure decompensation. She has normal coronary angiogram in 2015. Patient here for 6 mo follow up aortic and mitral valve stenosis, diastolic heart failure, and permanent afib. She had an echo last month. She presented to [facility] ED a few weeks ago for palpitations. [...] initiated. Patient agrees this plan. Emergency Department [facility] 5 Patient name: JENNI VILLEGAS Laboratory reviewed [...] has new requirement of 2L O2 by SC. Case discussed with hospitalist who agreed to [...] and are negative Previous HPI per Dr Avtar POWELL Jenni is seen in follow-up. She is [...] She has history of prior admissions to [facility] with AF/RVR and diastolic heart failure [...] across the biop (more content not included)... [facility] 12-07-2023 Note Patient here for 6 m o follow up aortic and mitral valve stenosis, diastolic heart failure, and permanent afib. She had an echo last month. She presented to [facility] a few weeks ago for palpitations. [...] All other systems reviewed and are negative. [facility] 12-07-2023 Note Continue to monitor AO valve with repeat TTE in 6 months [facility] 08-07-2023 History of Present illness Narrative Pt [...] vomiting - Difficulty breathing or swallowing CALL [phone] Other Instructions: - You should have a follow-up appointment scheduled already or a follow-up plan in place prior to leaving. - Call the office if you develop any problems or have any questions at: [facility] [phone] or Our 24 hour help line is also available: [phone] ([phone]) If you need refills,or have questions / concerns, outside of our office hours Sunday 8:00 a.m - 4:30 p.m. at [facility], please call [phone] to speak to Constance STEINER or leave a voicemail for her. *Remember to allow at least 48 business hours for medication refill requests. 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 [facility] 05-14-2023 Note Patient here for 6 m [...] All other systems reviewed and are negative. [facility] 06-08-2022 Note HISTORY AND PHYSICAL EXAMINATION Date:06/07/2022 [...] go forward with her elective procedure. [facility] 06-08-2022 Note OPERATIVE NOTE OPERATION DATE: 06/08/2022 [...] ensuring mobility, phacoemulsification was performed in a [id number]-[id number]-type fashion. After all nuclear material had been [...] the following day for postoperative care. [facility] 04-13-2022 Note OPERATIVE NOTE OPERATION DATE: 04/13/2022 [...] ensuring mobility, phacoemulsification was performed in a jacbtfz-wfr-dsysal-type fashion. After all nuclear material had been [...] the following day for postoperative care. [facility] 04-13-2022 Note HISTORY AND PHYSICAL EXAMINATION Date:04/12/2022 [...] go forward with her elective procedure. [facility] 06-06-2021 Evaluation note Encounter Date Diagnosis Assessment [...] Patient care instructions given in writting by [facility] Home document [email or web address] Other Evaluation note* Diagnosis Lumbar spondylosis- Primary Lumbosacral spondylosis without myelopathy documented in this encounter [employer] Work Phone: History general Narrative - Reported* Type [...] see above list Hospitalization History chf x3 [email or web address] Other Summary Purpose Family History No Family [...] section and content) DATE CREATED AUTHOR 08/19/2021 [facility] dical Specialist DATE CREATED AUTHOR AUTHOR'S ORGANIZ ATION 12/26/2021 [facility] DATE CREATED AUTHOR AUTHOR'S ORGANIZ ATION 12/15/2022 [facility] DATE CREATED AUTHOR AUTHOR'S ORGANIZ ATION 05/18/2023 [facility] DATE CREATED AUTHOR AUTHOR'S ORGANIZ ATION 08/08/2023 [facility] DATE CREATED AUTHOR AUTHOR'S ORGANIZ ATION 01/08/2024 [facility] DATE CREATED AUTHOR AUTHOR'S ORGANIZ ATION 02/19/2024 [facility] dical Specialists EPIC REASON FOR VISIT (unrecogniz ed section and content) Specialty Diagnoses / Procedures Referred By Contac t Referred To Contact Diagnoses Lumbar spondylosis Lumbar spondylosis [M47.816] Procedures OK NJX DX/THER AGT PVRT FACET JT LMBR/SAC 1 LEVEL OK NJX DX/THER AGT PVRT FACET JT LMBR/SAC 2ND LEVEL B/L LUMBAR MEDIAL BRANCH BLOCK L3 L4 L5 B/L LUMBAR MEDIAL BRANCH BLOCK L3 L4 L5 Kd Macias MD [address] [place] [address] BRANDO ANDRES Phone: [phone] Referral ID Status Reason Start Date Expiration Date Visits Re quested Visits Authorized [id number] 1 1 PRN Active and Recently Administ [...] Care Teams (unrecognized sec tion and content) Technician Anatomic Pathology Relationship Specialty Start Date End Date Jasvir León MD [address] [facility] [address] [place] [address] PCP - General Internal Medicine 05/07/23 FOR [...] BE BASED ON THE PRIMARY CLINICAL RECORDS. [employer] provides no warranty or guarantee of the accuracy or completeness of information in this document.
--- NOTE | 2024-04-11 15:41 | XR_ITS ---
The [address] [address] Patient Name: KATHY VILLEGAS MRN: [id number] date: 1940 Sex: F Assigned Patient Location: ER Current Patient Location: ER Accession/Order Number: [id number] Exam Date: 04/11/2024 15:45 Report Date: 04/11/2024 16:21 At the request of: GRACY PICHARDO Procedure: XR thoracic spine 2V Exam: Radiographs: XR thoracic spine 2V, XR ribs LT min 3V w CXR1V Reason for exam: fall Comparison: Plain films dated 03/02/2023 XR/XR thoracic spine 2V IMPRESSION: Thoracic spine radiographs are limited with much of the lateral views obscured by heavily overlapped soft tissues and osseous structures. No thoracic spine compression fractures with severe height loss. Consider follow-up evaluation with CT. Multiple acute left rib fractures including the left fifth, sixth, seventh and eighth ribs, some these are displaced Pulmonary venous hypertension. Sternotomy. CABG. Implanted cardiac recording device. Remainder of the left rib radiographs is unremarkable. Electronically authenticated by: RACHAEL BAUTISTA Date: 04/11/2024 16:21
--- NOTE | 2024-04-11 15:41 | XR_ITS ---
The [address] [address] Patient Name: KATHY VILLEGAS MRN: [id number] date: 1940 Sex: F Assigned Patient Location: ER Current Patient Location: ER Accession/Order Number: [id number] Exam Date: 04/11/2024 15:45 Report Date: 04/11/2024 16:21 At the request of: GRACY PICHARDO Procedure: XR ribs LT min 3V w CXR1V Exam: Radiographs: XR thoracic spine 2V, XR ribs LT min 3V w CXR1V Reason for exam: fall Comparison: Plain films dated 03/02/2023 XR/XR ribs LT min 3V w CXR1V IMPRESSION: Thoracic spine radiographs are limited with much of the lateral views obscured by heavily overlapped soft tissues and osseous structures. No thoracic spine compression fractures with severe height loss. Consider follow-up evaluation with CT. Multiple acute left rib fractures including the left fifth, sixth, seventh and eighth ribs, some these are displaced Pulmonary venous hypertension. Sternotomy. CABG. Implanted cardiac recording device. Remainder of the left rib radiographs is unremarkable. Electronically authenticated by: RACHAEL BAUTISTA Date: 04/11/2024 16:21
--- NOTE | 2024-04-11 15:41 | ED_ITS ---
HPI HPI - General Adult General Chief complaint: Fall Stated complaint: fall Time Seen by Provider: 04/11/24 15:35 Source: patient Mode of arrival: ambulance Limitations: no limitations History of Present Illness HPI narrative: 84-year-old female presents for pain to her back. She lost her balance in her bathroom and fell backwards and hit her back on the tub. She did not hit her head and there was no other injury. She initially could not get herself up and she scooted and called somebody. She complains of pain to the left lower very medial rib area. She does not have neck pain or low back pain. This happened just before coming into the emergency department. The pain is sharp and moderate. Related Data Home Medications ?Medication ?Instructions ?Recorded ?Confirmed alprazolam 0.25 mg tablet 0.25 mg PO Q6H PRN anxiety 11/17/23 04/11/24 aspirin 81 mg tablet,delayed 81 mg PO DAILY 11/17/23 04/11/24 release (Adult Low Dose Aspirin) atorvastatin 20 mg tablet 20 mg PO QPM 11/17/23 04/11/24 bupropion HCl 150 mg tablet,12 hr 150 mg PO BID 11/17/23 04/11/24 sustained-release colchicine 0.6 mg tablet 0.6 mg PO DAILY 11/17/23 04/11/24 digoxin 125 mcg (0.125 mg) tablet 0.125 mg PO .QOD 11/17/23 04/11/24 escitalopram oxalate 10 mg tablet 10 mg PO DAILY 11/17/23 04/11/24 gabapentin 100 mg capsule 100 mg PO TID 11/17/23 04/11/24 insulin lispro protamine-lispro 8 unit subcut BID 11/17/23 04/11/24 100 unit/mL (75-25) subcutaneous pen levothyroxine 50 mcg tablet 50 mcg PO QAM 11/17/23 04/11/24 (Euthyrox) omeprazole 40 mg capsule,delayed 40 mg PO DAILY 11/17/23 04/11/24 release ropinirole 0.25 mg tablet 0.25 mg PO QPM 11/17/23 04/11/24 torsemide 20 mg tablet 20 mg PO DAILY 11/17/23 04/11/24 Previous Rx's ?Medication ?Instructions ?Recorded carvedilol 12.5 mg tablet (Coreg) 12.5 mg PO BID #60 tabs 11/18/23 spironolactone 25 mg tablet 25 mg PO DAILY #30 tabs 11/18/23 (Aldactone) Allergies Allergy/AdvReac Type Severity Reaction Status Date / Time codeine Allergy Intermediate Unknown Verified 04/11/24 15:34 Penicillins Allergy Intermediate Unknown Verified 04/11/24 15:34 Opioid HPI Opioid Management Most Recent Opioid Data: Last Pain Scale 10 04/11/24 16:37 Last MAR Pain Assessment 04/11/24 16:37 Review of Systems ROS Narrative A ten point review of systems is negative except as noted above. [facility] Medical History (Updated 11/22/23 @ 00:00 by ) Hypothyroid ?E03.9 - Hypothyroidism, unspecified (ICD-10) Type 2 diabetes mellitus with hyperglycemia ?E11.65 - Type 2 diabetes mellitus with hyperglycemia (ICD-10) Aortic stenosis, moderate ?I35.0 - Nonrheumatic aortic (valve) stenosis (ICD-10) Persistent atrial fibrillation ?I48.19 - Other persistent atrial fibrillation (ICD-10) Hypertension ?I10 - Essential (primary) hypertension (ICD-10) Chronic heart failure with preserved ejection fraction (HFpEF) ?I50.32 - Chronic diastolic (congestive) heart failure (ICD-10) Acute thoracic back pain ?M54.6 - Pain in thoracic spine (ICD-10) Closed compression fracture of L1 vertebra ?S32.010A - Wedge compression fracture of first lumbar vertebra, initial encounter for closed fracture (ICD-10) Lung mass ?R91.8 - Other nonspecific abnormal finding of lung field (ICD-10) Compression fracture of L1 lumbar vertebra ?S32.010A - Wedge compression fracture of first lumbar vertebra, initial encounter for closed fracture (ICD-10) Acute pain of left foot ?M79.672 - Pain in left foot (ICD-10) 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 ?F32.89 - Other specified depressive episodes (ICD-10) Anxiety ?F41.9 - Anxiety disorder, unspecified (ICD-10) Diabetes ?E11.9 - Type 2 diabetes mellitus without complications (ICD-10) Atrial fibrillation ?I48.91 - Unspecified atrial fibrillation (ICD-10) Surgical History (Updated 11/22/23 @ 00:00 by ) Status post aortic valve repair ?Z98.890 - Other specified postprocedural states (ICD-10) S/P ablation of atrial fibrillation ?Z98.890 - Other specified postprocedural states (ICD-10) ?Z86.79 - Personal history of other diseases of the circulatory system (ICD- 10) History of carpal tunnel surgery of right wrist ?Z98.890 - Other specified postprocedural states (ICD-10) H/O: hysterectomy ?Z90.710 - Acquired absence of both cervix and uterus (ICD-10) Aortic valve replaced ?Z95.2 - Presence of prosthetic heart valve (ICD-10) History of cholecystectomy ?Z90.49 - Acquired absence of other specified parts of digestive tract (ICD- 10) Family History (Updated 11/17/23 @ 14:56 by Aylin Nobles) Mother Family history of CHF (congestive heart failure) Father Family history of diabetes mellitus Sister Family history of diabetes mellitus Son Family history of myocardial infarction Social History (Updated 11/17/23 @ 14:57 by Aylin Nobles) Within the past year, how often did you have a drink containing alcohol: monthly or less Within the past year, how many standard drinks containing alcohol did you have on a typical day: 1 or 2 Within the past year, how often did you have six or more drinks on one occasion: never Total score: 0 Score interpretation: A score less than 3 is consistent with normal alcohol consumption. Smoking status: Former smoker Non-prescribed substance use: denies use Previous occupational history: retired Highest level of school completed/degree received: 11th grade Are you now , , , , never or living with a partner: In a typical week, how many times do you talk on the telephone with family, friends, or neighbors: 3 or more times per week How often do you get together with friends or relatives: 3 or more times per week How often do you attend congregational or anabaptist services: 4 or more times per year Do you belong to any clubs or organizations such as congregational groups unions, fraternal or athletic groups, or school groups: no Total score: 2 Score interpretation: A score of greater than or equal to 2 indicates the lowest level of social isolation. Little interest or pleasure in doing things: not at all Feeling down, depressed, or hopeless: not at all Feel stressed/tense/nervous/anxious/difficulty sleeping: not at all Gender Identity: female Exam Narrative Exam Narrative: Nurses note and vital signs reviewed and patient is not hypoxic. General: The patient appears well and in no apparent distress. Skin: Warm, dry, no pallor noted. There is no rash noted. Head: Normocephalic, atraumatic Eye: Normal conjunctiva, no drainage Ears, Nose, Mouth, and Throat: oral mucosa is moist. Nares patent. Cardiovascular: Regular Rate and Rhythm Respiratory: Patient is in no distress, no accessory muscle use, lungs are clear to auscultation, no wheezing, rales or rhonchi Back: No tenderness in the cervical or thoracic spine. She has some tenderness in the medial left lower rib area. There is no crepitus bruise or abrasion. GI: Soft nontender Musculoskeletal: No palpable tenderness to her extremities Neurological: Awake and alert. She knows her name and where she is and why she is here. When asked what year it is she answered 2003. Psychiatric: Cooperative Constitutional Vital Signs, click to edit/add: Last Vital Signs Temp 98 F 04/11/24 15:35 Pulse 89 04/11/24 16:40 Resp 22 H 04/11/24 16:40 BP 158/82 H 04/11/24 15:35 Pulse Ox 91 L 04/11/24 16:40 O2 Del Method Room Air 04/11/24 15:35 O2 Flow Rate 2 04/11/24 15:52 Course Vital Signs Vital signs: Vital Signs Temperature 98 F 04/11/24 15:35 Pulse Rate 88 04/11/24 15:35 Respiratory Rate 15 04/11/24 15:35 Blood Pressure 158/82 H 04/11/24 15:35 Pulse Oximetry 83 L 04/11/24 15:35 Oxygen Delivery Method Room Air 04/11/24 15:35 Temperature 98 F 04/11/24 15:35 Pulse Rate 89 04/11/24 16:40 Respiratory Rate 22 H 04/11/24 16:40 Blood Pressure 158/82 H 04/11/24 15:35 Pulse Oximetry 91 L 04/11/24 16:40 Oxygen Delivery Method Room Air 04/11/24 15:35 Oxygen Delivery Flow Rate 2 04/11/24 15:52 Medical Decision Making MDM Narrative Medical decision making narrative: 4 rib fractures on the left side are identified. No pneumothorax. She has considerable pain and was given IV morphine and will be admitted for observation. No other injury was sustained. Findings are discussed with the patient and her family. Differential Diagnosis Differential Diagnosis: Rib fractures, pulmonary contusion, pneumothorax Imaging Data Rib x-rays: Radiologist's impression: ITS Impressions Ribs X-Ray 04/11/24 15:41 IMPRESSION: Thoracic spine radiographs are limited with much of the lateral views obscured by heavily overlapped soft tissues and osseous structures. No thoracic spine compression fractures with severe height loss. Consider follow-up evaluation with CT. Multiple acute left rib fractures including the left fifth, sixth, seventh and eighth ribs, some these are displaced Pulmonary venous hypertension. Sternotomy. CABG. Implanted cardiac recording device. Remainder of the left rib radiographs is unremarkable. Electronically authenticated by: RACHAEL BAUTISTA Date: 04/11/2024 16:21 Thoracic Spine X-Ray 04/11/24 15:41 IMPRESSION: Thoracic spine radiographs are limited with much of the lateral views obscured by heavily overlapped soft tissues and osseous structures. No thoracic spine compression fractures with severe height loss. Consider follow-up evaluation with CT. Multiple acute left rib fractures including the left fifth, sixth, seventh and eighth ribs, some these are displaced Pulmonary venous hypertension. Sternotomy. CABG. Implanted cardiac recording device. Remainder of the left rib radiographs is unremarkable. Electronically authenticated by: RACHAEL BAUTISTA Date: 04/11/2024 16:21 Discharge Plan Discharge Chief Complaint: Fall Time of Disposition Decision: 17:15 Prescriptions / Home Meds: No Action alprazolam 0.25 mg tablet 0.25 mg PO Q6H PRN (Reason: anxiety) atorvastatin 20 mg tablet 20 mg PO QPM bupropion HCl 150 mg tablet sustained-release 12 hr 150 mg PO BID colchicine 0.6 mg tablet 0.6 mg PO DAILY digoxin 125 mcg (0.125 mg) tablet 0.125 mg PO .QOD insulin lispro protamin-lispro 100 unit/mL (75-25) insulin pen 8 unit SUBCUT BID omeprazole 40 mg capsule,delayed release(DR/EC) 40 mg PO DAILY ropinirole 0.25 mg tablet 0.25 mg PO QPM torsemide 20 mg tablet 20 mg PO DAILY aspirin [Adult Low Dose Aspirin] 81 mg tablet,delayed release (DR/EC) 81 mg PO DAILY escitalopram oxalate 10 mg tablet 10 mg PO DAILY gabapentin 100 mg capsule 100 mg PO TID levothyroxine [Euthyrox] 50 mcg tablet 50 mcg PO QAM carvedilol [Coreg] 12.5 mg tablet 12.5 mg PO BID Qty: 60 0RF Rx Instructions: must administer with a meal/food spironolactone [Aldactone] 25 mg tablet 25 mg PO DAILY Qty: 30 0RF Print Language: Tajik
[2024-04-11] MEDS: MORPHINE SULFATE 2 MG/ML SYRINGE IV ×2 (16:37→18:56)
--- OUTSIDE RECORDS SUMMARY | 2024-04-11 17:57 | XMS_ITS | CCD ---
Author Organization [facility] Care Team Providers Care Examination Scorer Name Role Phone GRETTA OMALLEY Admitting Unavailable [...] KHARI, DR ISRAEL Primary Care Unavailable DAWOOD PEDROAZ Admitting Unavailable DAWOOD PEDROZA Consulting Unavailable DAWOOD [...] Codeine; Translations: [CODEINE] Drug Allergy 4 [facility] Repository (4 sources) Penicillins; Translations: [PENICILLINS] Drug allergy (disorder) 2 [facility] Repository (1 source) penicillian Propensity to adverse reactions rash [facility] [employer] Other (1 source) codiene Propensity to adverse reactions abdominal pain 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 Normal [facility] Office Visiton 12-07-2023 Follow-up visit [id number] Jenni Villegas 1940 F Date Provider Department Center 12/07/2023 FARZANEH PERSAUD Family History Problem Relation Age of Onset Diabetes Father Heart failure Father Other Other Family Status - Relation Status Age at Father Other Level of Service:48700 [place] OFFICE/OUTPATIENT ESTABLISHED MOD MDM 30 MIN [facility] 36on 11-16-2023 36 Regarding echo performed on 10/23/2023: MD Mariaa Fernandes MA; Farzaneh Arndt NP [place], she sees you soon, echo is consistent with volume overload, I could consider intensification of diuretics before determining the need for FARA Normal [facility] XR COMPARISON OF OUTSIDE HIRAL MSon 08-07-2023 XR COMPARISON OF OUTSIDE FILMS RADRPT There is no result for this study. This is a placeholder for comparison films only. Final result Normal [facility] XR COMPARISON OF OUTSIDE HIRAL MSon 05-29-2023 XR COMPARISON OF OUTSIDE FILMS RADRPT There is no result for this study. This is a placeholder for comparison films only. Final result Normal [facility] Office Visiton 05-14-2023 Follow-up visit [id number] Jenni Villegas 1940 F Date Provider Department Center 05/14/2023 [id number] IBRAHIM CARD [facility] Family History Problem Relation Age of Onset Diabetes Father Heart failure Father Other Other Family Status - Relation Status Age at Father Other Level of Service:20202 [place] OFFICE/OUTPATIENT ESTABLISHED MOD MDM 30-39 MIN Normal [facility] FLUORO FOR SURGICAL PROCEDUR ESon 05-09-2023 FLUORO FOR SURGICAL PROCEDURES RADRPT Radiology exam is complete. No Radiologist dictation. Please follow up with ordering provider. Final result Normal [facility] SURGICALon 05-09-2023 SURGICAL [facility] JENNI VILLEGAS [id number] Assoc. Page 1 of [address] [place] [address] PROC: 05/09/2023 [place] RECV: 05/11/[address] RPTD: 05/16/2023 [place] [address] LOC: [facility] ACCT: [id number] SEX: F : 1940 AGE: 83 Y [...] negative. The CD138 demonstrates scattered plasma cells. Ivan and lambda surface immunoglobulin light chain LALO is performed with adequate controls. The kappa and lambda stains demonstrate a polytypic plasma cell population. Overall, there is no evidence of an atypical infiltrate. Malignancy is not identified. *This test was developed and its performance characteristics determined by [facility]. It has not been cleared or approved by the U.S. Food and Drug Administration. Pursuant to the requirements of CLIA, this laboratory has established and verified the test's accuracy and precision. Additional information about this type of test is available upon request. [phone] INDY PLATT M.D., F.C.A.P. [facility] Printed on: 05/16/2023 [address], [place] [address] Original print date: 05/16/2023 Normal 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 Page 1 of 1\X0D0A\[address]\X0D0A\[place] [address]\X0D0A\ PROC: 05/09/2023\X0D0A\[facility] RECV: 05/11/2023\X0D0A\[address] RPTD: 05/16/2023\X0D0A\[place] [address]\X0D0A\ LOC: [facility]\X0D0A\ ACCT: [id number] SEX: F\X0D0A\ : 1940 AGE: 83 Y\X0D0A\X0D0A\ [...] negative. The CD138 demonstrates scattered plasma cells. Ivan and\X0D0A\lambda surface immunoglobulin light chain LALO is performed with\X0D0A\adequate controls. The kappa and lambda stains demonstrate a polytypic\X0D0A\plasma cell population. Overall, there is no evidence of an atypical\X0D0A\infiltrate. Malignancy is not identified.\X0D0A\X0D0A\*This test was developed and its performance characteristics determined\X0D0A\by [facility]. It has not been cleared or\X0D0A\approved by the U.S. Food and Drug Administration. Pursuant to the\X0D0A\requirements of CLIA, this laboratory has established and verified the\X0D0A\test's accuracy and precision. Additional information about this type\X0D0A\of test is available upon request.\X0D0A\X0D0A\43810\X0D0A\35636\X0D0A\29179 x 3\X0D0A\68190\X0D0A\10010\X0D0A\X0D0A\X0D0A\X0D0A\ \X0D0A\ INDY PLATT M.D., F.C.A.P.\X0D0A\X0D0A\X0D0A\[facility]/ [facility] Printed on: 05/16/2023\X0D0A\[address]\X0D0A\[place], [place] [address]\X0D0A\Original print date: 05/16/2023 Performed By: #### 1 [id number] #### [facility] See Report 36on 02-04-2023 36 I reviewed labs from 02/02/2023. Please have her increased torsemide further to a total 60 mg daily (she can do 30 mg bid) and get same repeat labs in 2-3 weeks. Also please make sure she follows with Dr León regarding her low glucose. Normal [facility] Telephoneon 02-04-2023 Telephone [id number] Jenni Villegas 1940 F Date Provider Department Center 02/04/2023 Rocky-JOSEFINA CHAO [facility] Family History Problem Relation Age of Onset Diabetes Father Heart failure Father Other Other Family Status - Relation Status Age at Father Other Normal [facility] DIGOXINon 12-06-2022 DIG <0.2 Critically low 0.9-2.[address] [facility] Comment on above: Performed By: #### B LDCX2 #### [facility] [address] [address] [address] Lisa Martinez PROF CHEM 8 (BAS METB)on Anion gap [Moles/Vol] 9.6 mmol/L Normal [facility] Comment on above: Performed By: #### T SHRFT4, BMP ####[facility] [address] [address]DrIngrid Martinez Calcium [Mass/Vol] 9.0 mg/dL Normal 8.5-10.1 [facility] Comment on above: Performed By: #### T SHRFT4, BMP ####[facility] [address] [address]DrIngrid Martinez Chloride [Moles/Vol] 103 mmol/L Normal 98-107 [facility] Comment on above: Performed By: #### T SUPRIYAFT4, BMP ####[facility] [address] [address]Dr. Lisa Martinez CO2 [Moles/Vol] 33.4 mmol/L Critically high 21.0-32.0 [facility] Comment on above: Performed By: #### T SHRFT4, BMP ####[facility] [address] [address]Dr. Lisa Martinez Creatinine [Mass/Vol] 1.69 mg/dL Critically high 0.55-1.02 [facility] Comment on above: Performed By: #### T ALFRED4, BMP ####[facility] [address] [address]Dr. Lisa Martinez EGFR-AF ANDORRAN 35 mL/min/1.73m2 Critically low >=60 [facility] Comment on above: Performed By: #### T ALFRED4, BMP ####[facility] [address] [place], [place] [address]Dr. Lisa Martinez EGFR-NON AF ANDORRAN 29 mL/min/1.73m2 Critically low >=60 [facility] Comment on above: Performed By: #### T KELLEY, BMP ####[facility] [address] [place], [place] [address]Dr. Lisa Martinez Glucose [Mass/Vol] 72 mg/dL Critically low 74-106 [facility] Comment on above: Performed By: #### T KELLEY, BMP ####[facility] [address] [place], [place] [address]Dr. Lisa Martinez Potassium [Moles/Vol] 4.0 mmol/L Normal 3.5-5.1 [facility] Comment on above: Performed By: #### T ALFRED4, BMP ####[facility] [address] [place], [place] [address]Dr. Lisa Martinez Sodium [Moles/Vol] 142 mmol/L Normal 136-145 [facility] Comment on above: Performed By: #### T ALFRED4, BMP ####[facility] [address] [place], [place] [address]Dr. Lisa Martinez Urea nitrogen [Mass/Vol] 42.0 mg/dL Critically high 7.0-18.0 [facility] Comment on above: Performed By: #### T ALFRED4, BMP ####[facility] [address] [place], [place] [address]Dr. Fabianachapis Martinez Urea nitrogen/Creatinin e [Mass ratio] 24.9 mg/mg Normal [facility] Comment on above: Performed By: #### T SHRFT4, BMP ####[facility] [address] [address]DrIngrid Martinez TSH W/ REFLEX TO FT4on 12-06 TSH 2.427 uIU/mL Normal 0.358-3.740 [facility] Comment on above: Performed By: #### T SHRFT4, BMP ####[facility] [address] [address]Dr. Lisa Martinez BNPon 11-15-2022 Natriuretic peptide B (Bld) [Mass/Vol] 6134.0 pg/mL Critically high <=1,800.0 [facility] Comment on above: Performed By: #### B FISH HATCHERY ASSISTANT, CMP, MG ####[facility] [address] [address]DrIngrid Martinez CBC AUTO DIFFon 11-15-2022 BASO # 0.0 103/ul Normal 0.0-0.1 [facility] Comment on above: Performed By: #### K U #### [facility] [address] [address] [address] Lisa Martinez Basophils/100 WBC (Bld) 0.6 % Normal 0.2-2.0 [facility] Comment on above: Performed By: #### K U #### [facility] [address] [address] [address] Lisa Martinez EO # 0.2 103/ul Normal 0.0-0.7 [facility] Comment on above: Performed By: #### K U #### [facility] [address] [address] [address] Lisa Martinez Eosinophils/100 WBC (Bld) 2.9 % Normal 0.9-7.0 [facility] Comment on above: Performed By: #### K U #### [facility] [address] [address] [address] Lisa Martinez Erythrocyte distribution width (RBC) [Ratio] 14.9 % Normal 11.0-15.0 [facility] Comment on above: Performed By: #### K U #### [facility] [address] [address] [address] Lisa Martinez Hematocrit (Bld) [Volume fraction] 31.9 % Critically low 36.0-48.0 [facility] Comment on above: Performed By: #### K U #### [facility] [address] [address] [address] Lisa Martinez Hemoglobin (Bld) [Mass/Vol] 9.8 g/dL Critically low 12.0-16.0 [facility] Comment on above: Performed By: #### K U #### [facility] [address] [place] [address] Dr. Lisa Martinez IG # 0.02 10e3/ul Normal 0.00-0.03 [facility] Comment on above: Performed By: #### K U #### [facility] [address] [place] [address] Dr. Lisa Martinez IG % 0.3 % Normal 0.0-0.5 [facility] Comment on above: Performed By: #### K U #### [facility] [address] [place] [address] Dr. Lisa Martinez LYMPH # 0.7 103/ul Critically low 1.2-3.[address] [facility] Comment on above: Performed By: #### K U #### [facility] [address] [place] [address] Dr. Lisa Martinez Lymphocytes/100 WBC (Bld) 10.9 % Critically low 20.5-60.0 [facility] Comment on above: Performed By: #### K U #### [facility] [address] [place] [address] Dr. Lisa Martinez MANUAL DIFF REQ NO Normal [facility] Comment on above: Performed By: #### K U #### [facility] [address] [place] [address] Dr. Lisa Martinez MCH (RBC) [Entitic mass] 29.1 pg Normal 26.7-34.0 [facility] Comment on above: Performed By: #### K U #### [facility] [address] [address] [address] Lisa Martinez MCHC (RBC) [Mass/Vol] 30.7 g/dL Normal 29.9-35.2 [facility] Comment on above: Performed By: #### K U #### [facility] [address] [place] [address] Dr. Lisa Martinez MCV (RBC) [Entitic vol] 94.7 fL Normal 81.0-99.0 [facility] Comment on above: Performed By: #### K U #### [facility] [address] [place] [address] Dr. Lisa Martinez MONO # 0.8 103/ul Normal 0.3-0.8 [facility] Comment on above: Performed By: #### K U #### [facility] [address] [place] [address] Dr. Lisa Martinez Monocytes/100 WBC (Bld) 12.2 % Critically high 1.7-12.0 [facility] Comment on above: Performed By: #### K U #### [facility] [address] [place] [address] Dr. Lisa Martinez NEUT # 4.6 103/ul Normal 1.4-6.5 [facility] Comment on above: Performed By: #### K U #### [facility] [address] [place] [address] Dr. Lisa Martinez Neutrophils/100 WBC (Bld) 73.1 % Normal 43.0-75.0 [facility] Comment on above: Performed By: #### K U #### [facility] [address] [place] [address] Dr. Lisa Martinez Platelet mean volume (Bld) [Entitic vol] 10.2 fL Normal 9.5-13.5 [facility] Comment on above: Performed By: #### K U #### [facility] [address] [place] [address] Dr. Lisa Martinez PLT 186 103/ul Normal 150-450 [facility] Comment on above: Performed By: #### K U #### [facility] [address] [place] [address] Dr. Lisa Martinez RBC 3.37 106/ul Critically low 4.20-5.40 [facility] Comment on above: Performed By: #### K U #### [facility] [address] [place] [address] Dr. Lisa Martinez WBC 6.3 103/ul Normal 4.0-11.0 [facility] Comment on above: Performed By: #### K U #### [facility] [address] [place] [address] Dr. iLsa Martinez CHLORIDE URINE RANDOMon 11-06 Chloride, Urine 126 mmol/L Normal Not Estab. [facility] Comment on above: Performed By: #### B LDCX2 #### [facility] [address] [place] [address] Dr. Lisa Martinez CULTURE URINEon 11-15-2022 CULTURE [...] Trimethoprim/Sulfametho xazole <=20 S F Normal [facility] Comment on above: Performed By: #### U RCX #### [facility] [address] [place] [address] Dr. Lisa Martinez DIGOXINon 11-15-2022 DIG 0.3 ng/mL Critically low 0.9-2.[address] [facility] Comment on above: Performed By: #### B FISH HATCHERY ASSISTANT, BMP #### [facility] [address] [place] [address] Dr. Lisa Martinez MAGNESIUMon 11-15-2022 Magnesium [Mass/Vol] 2.2 mg/dL Normal 1.8-2.4 [facility] Comment on above: Performed By: #### B FISH HATCHERY ASSISTANT, CMP, MG ####[facility] [address] [address]Dr. Lisa Martinez POINT OF CARE GLUCOSEon 11-06 Glucose [Mass/Vol] 164 mg/dL Critically high 74-106 [facility] Comment on above: Performed By: #### C BC #### [facility] [address] [address] [address] Lisa Martinez PROF 14(COMP METB)on 023 Albumin [Mass/Vol] 3.3 g/dL Critically low 3.4-5.0 Th e [facility] Comment on above: Performed By: #### B FISH HATCHERY ASSISTANT, CMP, MG ####[facility] [address] [address]Dr. Lisa Martinez Albumin/Globulin [Mass ratio] 0.7 {ratio} Normal [facility] Comment on above: Performed By: #### B FISH HATCHERY ASSISTANT, CMP, MG ####[facility] [address] [address]Dr. Lisa Martinez ALP [Catalytic activity/Vol] 75 U/L Normal 46-116 [facility] Comment on above: Performed By: #### B FISH HATCHERY ASSISTANT, CMP, MG ####[facility] [address] [address]Dr. Lisa Martinez ALT [Catalytic activity/Vol] 14 U/L Normal 14-59 [facility] Comment on above: Performed By: #### B FISH HATCHERY ASSISTANT, CMP, MG ####[facility] [address] [address]Dr. Lisa Martinez Anion gap [Moles/Vol] 11.1 mmol/L Normal [facility] Comment on above: Performed By: #### B FISH HATCHERY ASSISTANT, CMP, MG ####[facility] [address] [address]Dr. Lisa Martinez AST [Catalytic activity/Vol] 14 U/L Critically low 15-37 [facility] Comment on above: Performed By: #### B FISH HATCHERY ASSISTANT, CMP, MG ####[facility] [address] [address]Dr. Lisa Martinez Bilirubin [Mass/Vol] 0.9 mg/dL Normal 0.2-1.0 [facility] Comment on above: Performed By: #### B FISH HATCHERY ASSISTANT, CMP, MG ####[facility] [address] [address]Dr. Lisa Martinez Calcium [Mass/Vol] 9.1 mg/dL Normal 8.5-10.1 [facility] Comment on above: Performed By: #### B FISH HATCHERY ASSISTANT, CMP, MG ####[facility] [address] [address]Dr. Lisa Martinez Chloride [Moles/Vol] 100 mmol/L Normal 98-107 [facility] Comment on above: Performed By: #### B FISH HATCHERY ASSISTANT, CMP, MG ####[facility] [address] [address]Dr. Lisa Martinez CO2 [Moles/Vol] 32.6 mmol/L Critically high 21.0-32.0 [facility] Comment on above: Performed By: #### B FISH HATCHERY ASSISTANT, CMP, MG ####[facility] [address] [address]Dr. Lisa Martinez Creatinine [Mass/Vol] 2.65 mg/dL Critically high 0.55-1.02 [facility] Comment on above: Performed By: #### B FISH HATCHERY ASSISTANT, CMP, MG ####[facility] [address] [place], [place] [address]Dr. Lisa Martinez EGFR-AF ANDORRAN 21 mL/min/1.73m2 Critically low >=60 [facility] Comment on above: Performed By: #### B FISH HATCHERY ASSISTANT, CMP, MG ####[facility] [address] [place], [place] [address]Dr. Lisa Martinez EGFR-NON AF ANDORRAN 17 mL/min/1.73m2 Critically low >=60 [facility] Comment on above: Performed By: #### B FISH HATCHERY ASSISTANT, CMP, MG ####[facility] [address] [address]Dr. Lisa Martinez Globulin (S) [Mass/Vol] 4.7 g/dL Normal [facility] Comment on above: Performed By: #### B FISH HATCHERY ASSISTANT, CMP, MG ####[facility] [address] [address]Dr. Lisa Martinez Glucose [Mass/Vol] 131 mg/dL Critically high 74-106 T [facility] Comment on above: Performed By: #### B FISH HATCHERY ASSISTANT, CMP, MG ####[facility] [address] [address]Dr. Lisa Martinez Potassium [Moles/Vol] 3.7 mmol/L Normal 3.5-5.1 [facility] Comment on above: Performed By: #### B FISH HATCHERY ASSISTANT, CMP, MG ####[facility] [address] [place], [place] [address]Dr. Lisa Martinez Protein [Mass/Vol] 8.0 g/dL Normal 6.4-8.2 [facility] Comment on above: Performed By: #### B FISH HATCHERY ASSISTANT, CMP, MG ####[facility] [address] [place], [place] [address]Dr. Lisa Martinez Sodium [Moles/Vol] 140 mmol/L Normal 136-145 [facility] Comment on above: Performed By: #### B FISH HATCHERY ASSISTANT, CMP, MG ####[facility] [address] [address]Dr. Lisa Martinez Urea nitrogen [Mass/Vol] 66.0 mg/dL Critically high 7.0-18.0 [facility] Comment on above: Performed By: #### B FISH HATCHERY ASSISTANT, CMP, MG ####[facility] [address] [address]Dr. Lisa Martinez Urea nitrogen/Creatinin e [Mass ratio] 24.9 mg/mg Normal [facility] Comment on above: Performed By: #### B FISH HATCHERY ASSISTANT, CMP, MG ####[facility] [address] [address]Dr. Lisa Martinez UREA NITROGEN, RANDOM URon 0 11-15-2022 Urea Nitrogen, Urine 165 mg/dL Normal Not Estab. [facility] Comment on above: Performed By: #### U NR ####[facility] [address] [address]Dr. Lisa Martinez BNPon 11-14-2022 Natriuretic peptide B (Bld) [Mass/Vol] 8525.0 pg/mL Critically high <=1,800.0 [facility] Comment on above: Performed By: #### B FISH HATCHERY ASSISTANT ####[facility] [address] [address]Dr. Lisa Martinez CBC AUTO DIFFon 11-14-2022 BASO # 0.0 103/ul Normal 0.0-0.1 [facility] Comment on above: Performed By: #### C VDTBH #### [facility] [address] [place] [address] Dr. Lisa Martinez Basophils/100 WBC (Bld) 0.5 % Normal 0.2-2.0 [facility] Comment on above: Performed By: #### C VDTBH #### [facility] [address] [place] [address] Dr. Lisa Martinez EO # 0.2 103/ul Normal 0.0-0.7 [facility] Comment on above: Performed By: #### C VDTBH #### [facility] [address] [place] [address] Dr. Lisa Martinez Eosinophils/100 WBC (Bld) 3.4 % Normal 0.9-7.0 [facility] Comment on above: Performed By: #### C VDTBH #### [facility] [address] [place] [address] Dr. Lisa Martinez Erythrocyte distribution width (RBC) [Ratio] 14.9 % Normal 11.0-15.0 [facility] Comment on above: Performed By: #### C VDTBH #### [facility] [address] [place] [address] Dr. Lisa Martinez Hematocrit (Bld) [Volume fraction] 31.3 % Critically low 36.0-48.0 [facility] Comment on above: Performed By: #### C VDTBH #### [facility] [address] [place] [address] Dr. Lisa Martinez Hemoglobin (Bld) [Mass/Vol] 9.4 g/dL Critically low 12.0-16.0 [facility] Comment on above: Performed By: #### C VDTBH #### [facility] [address] [place] [address] Dr. Lisa Martinez IG # 0.01 10e3/ul Normal 0.00-0.03 [facility] Comment on above: Performed By: #### C VDTBH #### [facility] [address] [place] [address] Dr. Lisa Martinez IG % 0.2 % Normal 0.0-0.5 [facility] Comment on above: Performed By: #### C VDTBH #### [facility] [address] [place] [address] Dr. Lisa Martinez LYMPH # 0.9 103/ul Critically low 1.2-3.[address] [facility] Comment on above: Performed By: #### C VDTBH #### [facility] [address] [place] [address] Dr. Lisa Martinez Lymphocytes/100 WBC (Bld) 15.2 % Critically low 20.5-60.0 [facility] Comment on above: Performed By: #### C VDTBH #### [facility] [address] [place] [address] Dr. Lisa Martinez MANUAL DIFF REQ NO Normal [facility] Comment on above: Performed By: #### C VDTBH #### [facility] [address] [place] [address] Dr. Lisa Martinez MCH (RBC) [Entitic mass] 29.0 pg Normal 26.7-34.0 [facility] Comment on above: Performed By: #### C VDTBH #### [facility] [address] [place] [address] Dr. Lisa Martinez MCHC (RBC) [Mass/Vol] 30.0 g/dL Normal 29.9-35.2 [facility] Comment on above: Performed By: #### C VDTBH #### [facility] [address] [place] [address] Dr. Lisa Martinez MCV (RBC) [Entitic vol] 96.6 fL Normal 81.0-99.0 [facility] Comment on above: Performed By: #### C VDTB #### [facility] [address] [place] [address] Dr. Lisa Martinez MONO # 0.6 103/ul Normal 0.3-0.8 [facility] Comment on above: Performed By: #### C VDTBH #### [facility] [address] [address] [address] Lisa Martinez Monocytes/100 WBC (Bld) 10.2 % Normal 1.7-12.0 [facility] Comment on above: Performed By: #### C VDTBH #### [facility] [address] [place] [address] Dr. Lisa Martinez NEUT # 4.0 103/ul Normal 1.4-6.5 [facility] Comment on above: Performed By: #### C VDTB #### [facility] [address] [place] [address] Dr. Lisa Martinez Neutrophils/100 WBC (Bld) 70.5 % Normal 43.0-75.0 [facility] Comment on above: Performed By: #### C VDTBH #### [facility] [address] [place] [address] Dr. Lisa Martinez Platelet mean volume (Bld) [Entitic vol] 10.3 fL Normal 9.5-13.5 [facility] Comment on above: Performed By: #### C VDTBH #### [facility] [address] [place] [address] Dr. Lisa Martinez PLT 192 103/ul Normal 150-450 [facility] Comment on above: Performed By: #### C VDTBH #### [facility] [address] [place] [address] Dr. Lisa Martinez RBC 3.24 106/ul Critically low 4.20-5.40 [facility] Comment on above: Performed By: #### C VDTBH #### [facility] [address] [place] [address] Dr. Lisa Martinez WBC 5.7 103/ul Normal 4.0-11.0 [facility] Comment on above: Performed By: #### C VDTBH #### [facility] [address] [address] [address] Lisa Martinez D-DIMERon 11-14-2022 D-DIMER 0.82 mg/L FEU Critically high <=0.59 [facility] Comment on above: Performed By: #### B FISH HATCHERY ASSISTANT, BMP #### [facility] [address] [address] [address] Lisa Martinez D-DIMER COMMENTS SEE BELOW Normal [facility] Comment on above: Result Comment: Incr [...] and generalized hospitalization. Performed By: #### B FISH HATCHERY ASSISTANT, BMP #### [facility] [address] [place] [address] Dr. Lisa Martinez ECHO LIMITED STUDYon 023 ECHO LIMITED STUDY Patient: URSZULA VILLEGAS Exam Date: 11/14/2022 : 1940 Gender:F Ordering : DR ROBERTO ZIMMERMAN . Admission #: [id number] Family : Order #: [id number] CLICK HERE TO VIEW EXAM ECHOCARDIOGRAM REPORT [...] M.D. on 11/14/2022 at 16:43 Normal [facility] MAGNESIUMon 11-14-2022 Magnesium [Mass/Vol] 2.3 mg/dL Normal 1.8-2.4 [facility] Comment on above: Performed By: #### U RCX #### [facility] [address] [place] [address] Dr. Lisa Martinez NM LUNG VENT_PERFon 11-15-19 [...] by: SADIE GARCIA Date: 2022-11-14 19:11 Normal [facility] OCC BLD IMMUNO SCREENon OCCULT BLOOD Negative Normal NEGATIVE [facility] Comment on above: Performed By: #### B LDCX2 #### [facility] [address] [place] [address] Dr. Lisa Martinez POINT OF CARE GLUCOSEon Glucose [Mass/Vol] 155 mg/dL Critically high 74-106 [facility] Comment on above: Performed By: #### P OCGLUC ####[facility] [id number] [address]Dr. Lisa Martinez Glucose [Mass/Vol] 148 mg/dL Critically high 74-106 [facility] Comment on above: Performed By: #### B LDCX2 #### [facility] [address] [address] [address] Lisa Martinez Glucose [Mass/Vol] 76 mg/dL Normal 74-106 [facility] Comment on above: Performed By: #### B LDCX2 #### [facility] [address] [address] [address] Lisa Martinez POTASSIUM URINEon 11-14-2022 UR POTASSIUM 21.3 mmol/L Normal [facility] Comment on above: Performed By: #### K U #### [facility] [address] [place] [address] Dr. Lisa Martinez PROF 14(COMP METB)on 023 Albumin [Mass/Vol] 3.3 g/dL Critically low 3.4-5.0 [facility] Comment on above: Performed By: #### U RCX #### [facility] [address] [address] [address] Lisa Martinez Albumin/Globulin [Mass ratio] 0.7 {ratio} Normal [facility] Comment on above: Performed By: #### U RCX #### [facility] [address] [address] [address] Lisa Martinez ALP [Catalytic activity/Vol] 72 U/L Normal 46-116 [facility] Comment on above: Performed By: #### U RCX #### [facility] [address] [address] [address] Lisa Martinez ALT [Catalytic activity/Vol] 16 U/L Normal 14-59 [facility] Comment on above: Performed By: #### U RCX #### [facility] [address] [address] [address] Lisa Martinez Anion gap [Moles/Vol] 13.0 mmol/L Normal [facility] Comment on above: Performed By: #### U RCX #### [facility] [address] [address] [address] Lisa Martinez AST [Catalytic activity/Vol] 13 U/L Critically low 15-37 [facility] Comment on above: Performed By: #### U RCX #### [facility] [address] [address] [address] Lisa Martinez Bilirubin [Mass/Vol] 0.8 mg/dL Normal 0.2-1.0 [facility] Comment on above: Performed By: #### U RCX #### [facility] [address] [address] [address] Lisa Martinez Calcium [Mass/Vol] 9.0 mg/dL Normal 8.5-10.1 [facility] Comment on above: Performed By: #### U RCX #### [facility] [address] [address] [address] Lisa Martinez Chloride [Moles/Vol] 100 mmol/L Normal 98-107 [facility] Comment on above: Performed By: #### U RCX #### [facility] [address] [address] [address] Lisa Martinez CO2 [Moles/Vol] 30.0 mmol/L Normal 21.0-32.0 [facility] Comment on above: Performed By: #### U RCX #### [facility] [address] [address] [address] Lisa Martinez Creatinine [Mass/Vol] 2.79 mg/dL Critically high 0.55-1.02 [facility] Comment on above: Performed By: #### U RCX #### [facility] [address] [address] [address] Lisa Martinez EGFR-AF ANDORRAN 20 mL/min/1.73m2 Critically low >=60 [facility] Comment on above: Performed By: #### U RCX #### [facility] [address] [address] [address] Lisa Martinez EGFR-NON AF ANDORRAN 16 mL/min/1.73m2 Critically low >=60 [facility] Comment on above: Performed By: #### U RCX #### [facility] [address] [address] [address] Lisa Martinez Globulin (S) [Mass/Vol] 4.6 g/dL Normal [facility] Comment on above: Performed By: #### U RCX #### [facility] [address] [address] [address] Lisa Martinez Glucose [Mass/Vol] 153 mg/dL Critically high 74-106 [facility] Comment on above: Performed By: #### U RCX #### [facility] [address] [address] [address] Lisa Martinez Potassium [Moles/Vol] 4.0 mmol/L Normal 3.5-5.1 [facility] Comment on above: Performed By: #### U RCX #### [facility] [address] [address] [address] Lisa Martinez Protein [Mass/Vol] 7.9 g/dL Normal 6.4-8.2 [facility] Comment on above: Performed By: #### U RCX #### [facility] [address] [address] [address] Lisa Martinez Sodium [Moles/Vol] 139 mmol/L Normal 136-145 [facility] Comment on above: Performed By: #### U RCX #### [facility] [address] [address] [address] Lisa Martinez Urea nitrogen [Mass/Vol] 67.0 mg/dL Critically high 7.0-18.0 [facility] Comment on above: Performed By: #### U RCX #### [facility] [address] [address] [address] Lisa Martinez Urea nitrogen/Creatinin e [Mass ratio] 24.0 mg/mg Normal [facility] Comment on above: Performed By: #### U RCX #### [facility] [address] [place] [address] Dr. Lisa Martinez SODIUM RANDOM URINEon 2022 Sodium (U) [Moles/Vol] 122 mmol/L Critically high 30-90 [facility] Comment on above: Performed By: #### B FISH HATCHERY ASSISTANT, BMP #### [facility] [address] [address] [address] Lisa Martinez T3, TOTAL (TRIIODOTHYRONINE) on 11-14-2022 T3, TOTAL 84 ng/dL Normal 71-180 [facility] Comment on above: Performed By: #### U RCX #### [facility] [address] [address] [address] Lisa Martinez BNPon 11-13-2022 Natriuretic peptide B (Bld) [Mass/Vol] 15235.0 pg/mL Critically high <=1,800.0 [facility] Comment on above: Performed By: #### B MP, HSTROPN, BNP ####[facility] [id number] [address]Dr. Lisa Martinez CARDIAC DONY 3-6on 3 CK [Catalytic activity/Vol] 60 U/L Normal 26-192 [facility] Comment on above: Performed By: #### C MREP ####[facility] [address] [id number]. Lisa Martinez CK.MB [Mass/Vol] 0.96 ng/mL Normal <=3.60 [facility] Comment on above: Performed By: #### C MREP ####[facility] [address] [id number]. Lisa Martinez HSTROP 16.3 pg/mL Normal 4.0-51.3 [facility] Comment on above: Result Comment: CUT- OFF POINTS HAVE BEEN ESTABLISHED BASED ON THE FOURTH UNIVERSAL DEFINITIONS OF MYOCARDIAL INFARCTION. THE UPPER REFERENCE LIMIT (URL) OF TROPONIN, DEFINED THE 99TH PERCENTILE OF cTnI DISTRIBUTION IN A REFERENCE POPULATION, HAS BEEN CONFIRMED THE DECISION THRESHOLD FOR SC DIAGNOSIS. Performed By: #### C MREP ####[facility] [address] [address]Dr. Lisa Martinez CK [Catalytic activity/Vol] 60 U/L Normal 26-192 [facility] Comment on above: Performed By: #### C BC #### [facility] [address] [address] [address] Lisa Martinez CK.MB [Mass/Vol] 0.94 ng/mL Normal <=3.60 [facility] Comment on above: Performed By: #### C BC #### [facility] [address] [place] [address] Dr. Lisa Martinez HSTROP 15.1 pg/mL Normal 4.0-51.3 [facility] Comment on above: Result Comment: CUT- OFF POINTS HAVE BEEN ESTABLISHED BASED ON THE FOURTH UNIVERSAL DEFINITIONS OF MYOCARDIAL INFARCTION. THE UPPER REFERENCE LIMIT (URL) OF TROPONIN, DEFINED THE 99TH PERCENTILE OF cTnI DISTRIBUTION IN A REFERENCE POPULATION, HAS BEEN CONFIRMED THE DECISION THRESHOLD FOR SC DIAGNOSIS. Performed By: #### C BC #### [facility] [address] [address] [address] Lisa Martinez CBC AUTO DIFFon 11-13-2022 BASO # 0.1 103/ul Normal 0.0-0.1 [facility] Comment on above: Performed By: #### C BC #### [facility] [address] [address] [address] Lisa Martinez Basophils/100 WBC (Bld) 0.6 % Normal 0.2-2.0 [facility] Comment on above: Performed By: #### C BC #### [facility] [address] [place] [address] Dr. Lisa Martinez EO # 0.2 103/ul Normal 0.0-0.7 [facility] Comment on above: Performed By: #### C BC #### [facility] [address] [address] [address] Lisa Martinez Eosinophils/100 WBC (Bld) 1.8 % Normal 0.9-7.0 [facility] Comment on above: Performed By: #### C BC #### [facility] [address] [place] [address] Dr. Lisa Martinez Erythrocyte distribution width (RBC) [Ratio] 15.0 % Normal 11.0-15.0 [facility] Comment on above: Performed By: #### C BC #### [facility] [address] [place] [address] Dr. Lisa Martinez Hematocrit (Bld) [Volume fraction] 32.9 % Critically low 36.0-48.0 [facility] Comment on above: Performed By: #### C BC #### [facility] [address] [place] [address] Dr. Lisa Martinez Hemoglobin (Bld) [Mass/Vol] 9.8 g/dL Critically low 12.0-16.0 [facility] Comment on above: Performed By: #### C BC #### [facility] [address] [place] [address] Dr. Lisa Martinez IG # 0.02 10e3/ul Normal 0.00-0.03 [facility] Comment on above: Performed By: #### C BC #### [facility] [address] [place] [address] Dr. Lisa Martinez IG % 0.2 % Normal 0.0-0.5 [facility] Comment on above: Performed By: #### C BC #### [facility] [address] [place] [address] Dr. Lisa Martinez LYMPH # 0.7 103/ul Critically low 1.2-3.[address] [facility] Comment on above: Performed By: #### C BC #### [facility] [address] [place] [address] Dr. Lisa Martinez Lymphocytes/100 WBC (Bld) 7.8 % Critically low 20.5-60.0 [facility] Comment on above: Performed By: #### C BC #### [facility] [address] [place] [address] Dr. Lisa Martinez MANUAL DIFF REQ NO Normal [facility] Comment on above: Performed By: #### C BC #### [facility] [address] [place] [address] Dr. Lisa Martinez MCH (RBC) [Entitic mass] 29.4 pg Normal 26.7-34.0 [facility] Comment on above: Performed By: #### C BC #### [facility] [address] [place] [address] Dr. Lisa Martinez MCHC (RBC) [Mass/Vol] 29.8 g/dL Critically low 29.9-35.2 [facility] Comment on above: Performed By: #### C BC #### [facility] [address] [place] [address] Dr. Lisa Martinez MCV (RBC) [Entitic vol] 98.8 fL Normal 81.0-99.0 [facility] Comment on above: Performed By: #### C BC #### [facility] [address] [place] [address] Dr. Lisa Martinez MONO # 0.7 103/ul Normal 0.3-0.8 [facility] Comment on above: Performed By: #### C BC #### [facility] [address] [place] [address] Dr. Lisa Martinez Monocytes/100 WBC (Bld) 7.6 % Normal 1.7-12.0 [facility] Comment on above: Performed By: #### C BC #### [facility] [address] [place] [address] Dr. Lisa Martinez NEUT # 7.0 103/ul Critically high 1.4-6.5 [facility] Comment on above: Performed By: #### C BC #### [facility] [address] [place] [address] Dr. Lisa Martinez Neutrophils/100 WBC (Bld) 82.0 % Critically high 43.0-75.0 [facility] Comment on above: Performed By: #### C BC #### [facility] [address] [place] [address] Dr. Lisa Martinez Platelet mean volume (Bld) [Entitic vol] 10.6 fL Normal 9.5-13.5 [facility] Comment on above: Performed By: #### C BC #### [facility] [address] [place] [address] Dr. Lisa Martinez PLT 209 103/ul Normal 150-450 [facility] Comment on above: Performed By: #### C BC #### [facility] [address] [place] [address] Dr. Lisa Martinez RBC 3.33 106/ul Critically low 4.20-5.40 [facility] Comment on above: Performed By: #### C BC #### [facility] [address] [place] [address] Dr. Lisa Martinez WBC 8.6 103/ul Normal 4.0-11.0 [facility] Comment on above: Performed By: #### C BC #### [facility] [address] [place] [address] Dr. Lisa Martinez LACTATE/LACTIC ACIDon 2022 Lactate [Moles/Vol] 3.4 mmol/L Critically high 0.4-2.0 [facility] Comment on above: Performed By: #### L ACT ####[facility] [address] [address]Dr. Lisa Martinez MAGNESIUMon 11-13-2022 Magnesium [Mass/Vol] 2.6 mg/dL Critically high 1.8-2.4 [facility] Comment on above: Performed By: #### B FISH HATCHERY ASSISTANT, BMP #### [facility] [address] [address] [address] Lisa Martinez PROF CHEM 8 (BAS METB)on Anion gap [Moles/Vol] 15.7 mmol/L Normal [facility] Comment on above: Performed By: #### C BC #### [facility] [address] [address] [address] Lisa Martinez Calcium [Mass/Vol] 9.1 mg/dL Normal 8.5-10.1 [facility] Comment on above: Performed By: #### C BC #### [facility] [address] [address] [address] Lisa Martinez Chloride [Moles/Vol] 103 mmol/L Normal 98-107 [facility] Comment on above: Performed By: #### C BC #### [facility] [address] [address] [address] Lisa Martinez CO2 [Moles/Vol] 27.2 mmol/L Normal 21.0-32.0 [facility] Comment on above: Performed By: #### C BC #### [facility] [address] [address] [address] Lisa Martinez Creatinine [Mass/Vol] 2.91 mg/dL Critically high 0.55-1.02 [facility] Comment on above: Performed By: #### C BC #### [facility] [address] [address] [address] Lisa Martinez EGFR-AF ANDORRAN 19 mL/min/1.73m2 Critically low >=60 [facility] Comment on above: Performed By: #### C BC #### [facility] [address] [address] [address] Lisa Martinez EGFR-NON AF ANDORRAN 15 mL/min/1.73m2 Critically low >=60 [facility] Comment on above: Performed By: #### C BC #### [facility] [address] [address] [address] Lisa Martinez Glucose [Mass/Vol] 172 mg/dL Critically high 74-106 [facility] Comment on above: Performed By: #### C BC #### [facility] [address] [address] [address] Lisa Martinez Potassium [Moles/Vol] 4.9 mmol/L Normal 3.5-5.1 [facility] Comment on above: Performed By: #### C BC #### [facility] [address] [address] [address] Lisa Martinez Sodium [Moles/Vol] 141 mmol/L Normal 136-145 [facility] Comment on above: Performed By: #### C BC #### [facility] [address] [address] [address] Lisa Martinez Urea nitrogen [Mass/Vol] 64.0 mg/dL Critically high 7.0-18.0 [facility] Comment on above: Performed By: #### C BC #### [facility] [address] [address] [address] Lisa Martinez Urea nitrogen/Creatinin e [Mass ratio] 22.0 mg/mg Normal [facility] Comment on above: Performed By: #### C BC #### [facility] [address] [address] [address] Lisa Martinez Anion gap [Moles/Vol] 17.4 mmol/L Normal [facility] Comment on above: Performed By: #### B NUHA HSTROPN, BNP ####[facility] [address] [address]DrIngrid Martinez Calcium [Mass/Vol] 9.1 mg/dL Normal 8.5-10.1 [facility] Comment on above: Performed By: #### B MP, HSTROPN, BNP ####[facility] [address] [address]DrIngrid Martinez Chloride [Moles/Vol] 104 mmol/L Normal 98-107 [facility] Comment on above: Performed By: #### B MP, HSTROPN, BNP ####[facility] [address] [address]Dr. Lisa Martinez CO2 [Moles/Vol] 26.9 mmol/L Normal 21.0-32.0 [facility] Comment on above: Performed By: #### B MP, HSTROPN, BNP ####[facility] [address] [address]Dr. Lisa Martinez Creatinine [Mass/Vol] 3.12 mg/dL Critically high 0.55-1.02 [facility] Comment on above: Performed By: #### B MP, HSTROPN, BNP ####[facility] [address] [address]Dr. Lisa Martinez EGFR-AF ANDORRAN 17 mL/min/1.73m2 Critically low >=60 [facility] Comment on above: Performed By: #### B MP, HSTROPN, BNP ####[facility] [address] [place], [place] [address]Dr. Lisa Martinez EGFR-NON AF ANDORRAN 14 mL/min/1.73m2 Critically low >=60 [facility] Comment on above: Performed By: #### B MP, HSTROPN, BNP ####[facility] [address] [place], [place] [address]Dr. Lisa Martinez Glucose [Mass/Vol] 131 mg/dL Critically high 74-106 [facility] Comment on above: Performed By: #### B MP, HSTROPN, BNP ####[facility] [address] [place] [address]Dr. Lisa Martinez Potassium [Moles/Vol] 5.3 mmol/L Critically high 3.5-5.1 [facility] Comment on above: Performed By: #### B MP, HSTROPN, BNP ####[facility] [address] [place] [address]Dr. Lisa Martinez Sodium [Moles/Vol] 143 mmol/L Normal 136-145 [facility] Comment on above: Performed By: #### B MP, HSTROPN, BNP ####[facility] [address] [place], [place] [address]Dr. Lisa Martinez Urea nitrogen [Mass/Vol] 59.0 mg/dL Critically high 7.0-18.0 [facility] Comment on above: Performed By: #### B MP, HSTROPN, BNP ####[facility] [address] [place], [place] [address]TuDr. Lisa Martinez Urea nitrogen/Creatinin e [Mass ratio] 18.9 mg/mg Normal [facility] Comment on above: Performed By: #### B MP, HSTROPN, BNP ####[facility] [address] [place], [place] [address]BvDr. Lisa Martinez SYMPTOMATIC COVID-19 ANTIGEN on 11-13-2022 EUA Statement SEE BELOW Normal [facility] Comment on above: Result [...] sooner. Performed By: #### C VDTBH #### [facility] [address] [place] [address] Dr. Lisa Martinez SARS-CoV-2 (COVID-19) RNA RACIEL+probe Ql (Unsp spec) Negative Normal NEGATIVE [facility] Comment on above: Performed By: #### C VDTBH #### [facility] [address] [place] [address] Dr. Lisa Martinez T4on 11-13-2022 T4 [Mass/Vol] 6.70 ug/dL Normal 4.80-13.90 [facility] Comment on above: Performed By: #### B FISH HATCHERY ASSISTANT, BMP #### [facility] [address] [place] [address] Dr. Lisa Martinez TROPONIN, HIGH SENSITIVITYon 11-13-2022 HSTROP 17.9 pg/mL Normal 4.0-51.3 [facility] Comment on above: Result Comment: CUT- OFF POINTS HAVE BEEN ESTABLISHED BASED ON THE FOURTH UNIVERSAL DEFINITIONS OF MYOCARDIAL INFARCTION. THE UPPER REFERENCE LIMIT (URL) OF TROPONIN, DEFINED THE 99TH PERCENTILE OF cTnI DISTRIBUTION IN A REFERENCE POPULATION, HAS BEEN CONFIRMED THE DECISION THRESHOLD FOR SC DIAGNOSIS. Performed By: #### B MP, HSTROPN, BNP ####[facility] [address] [place] [address]Dr. Lisa Martinez TSHon 11-13-2022 TSH 5.233 uIU/mL Critically high 0.358-3.740 [facility] Comment on above: Performed By: #### B FISH HATCHERY ASSISTANT, BMP #### [facility] [address] [place] [address] Dr. Lisa Martinez UA RANDOM W/MICROSCOPICon BACTERIA SMALL Abnormal NONE SEEN [facility] Comment on above: Performed By: #### K U #### [facility] [address] [place] [address] Dr. Lisa Martinez Bilirubin Ql (U) Negative Normal NEGATIVE [facility] Comment on above: Performed By: #### K U #### [facility] [address] [place] [address] Dr. Lisa Martinez CAST SEEN Abnormal NONE [facility] Comment on above: Performed By: #### K U #### [facility] [address] [place] [address] Dr. Lisa Martinez Clarity (U) CLEAR Normal CLEAR [facility] Comment on above: Performed By: #### K U #### [facility] [address] [place] [address] Dr. Lisa Martinez Color (U) LT. YELLOW Normal YELLOW [facility] Comment on above: Performed By: #### K U #### [facility] [address] [place] [address] Dr. Lisa Martinez Crystals LM Nom (Urine sed) NONE SEEN Normal NONE SEEN [facility] Comment on above: Performed By: #### K U #### [facility] [address] [place] [address] Dr. Lisa Martinez Epithelial cells LM Ql (Urine sed) FEW Abnormal NONE SEEN /RARE The [facility] Comment on above: Performed By: #### K U #### [facility] [address] [place] [address] Dr. Lisa Martinez Glucose Ql (U) Negative Normal NEGATIVE [facility] Comment on above: Performed By: #### K U #### [facility] [address] [address] [address] Lisa Martinez Hemoglobin Ql (U) Negative Normal NEGATIVE [facility] Comment on above: Performed By: #### K U #### [facility] [address] [place] [address] Dr. Lisa Martinez HYALINE CAST FEW Normal [facility] Comment on above: Performed By: #### K U #### [facility] [address] [place] [address] Dr. Lisa Martinez Ketones Ql (U) Negative Normal NEGATIVE [facility] Comment on above: Performed By: #### K U #### [facility] [address] [place] [address] Dr. Lisa Martinez LEUKOCYTES Negative Normal NEGATIVE [facility] Comment on above: Performed By: #### K U #### [facility] [address] [place] [address] Dr. Lisa Martinez MUCOUS NONE SEEN Normal NONE SEEN The [facility] Comment on above: Performed By: #### K U #### [facility] [address] [place] [address] Dr. Lisa Martinez Nitrite Ql (U) Negative Normal NEGATIVE [facility] Comment on above: Performed By: #### K U #### [facility] [address] [place] [address] Dr. Lisa Martinez pH (U) 5.5 [pH] Normal 5-9 The [facility] Comment on above: Performed By: #### K U #### [facility] [address] [place] [address] Dr. Lisa Martinez RBC NONE SEEN Abnormal 0-2 The [facility] Comment on above: Performed By: #### K U #### [facility] [address] [address] [address] Lisa Martinez SPEC GRAVITY 1.010 Normal 1.005-<=1.025 The [facility] Comment on above: Performed By: #### K U #### [facility] [address] [address] [address] Lisa Martinez UA PROTEIN Negative Normal NEGATIVE/ TRACE The [facility] Comment on above: Performed By: #### K U #### [facility] [address] [place] [address] Dr. Lisa Martinez Urobilinogen Qn (U) 0.2 {Mike'U}/dL Normal 0.2 - 1.0 The [facility] Comment on above: Performed By: #### K U #### [facility] [address] [place] [address] Dr. Lisa Martinez WBC NONE SEEN Normal NONE SEEN The [facility] Comment on above: Performed By: #### K U #### [facility] [address] [place] [address] Dr. Lisa Martinez US KIDNEYS BLADDERon 023 [...] by: Gela ARANDA Date: 2022-11-13 16:01 Normal [facility] XR CHEST 1 Von 11-13-2022 XR [...] MEENA WOOTEN Date: 2022-11-13 12:20 Normal The [facility] PROF CHEM 8 (BAS METB)on Anion gap [Moles/Vol] 13.5 mmol/L Normal [facility] Comment on above: Performed By: #### B MP ####[facility] [address] [place] [address]Dr. Lisa Martinez Calcium [Mass/Vol] 9.2 mg/dL Normal 8.5-10.1 [facility] Comment on above: Performed By: #### B MP ####[facility] [address] [place] [address]Dr. Lisa Martinez Chloride [Moles/Vol] 108 mmol/L Critically high 98-107 [facility] Comment on above: Performed By: #### B MP ####[facility] [address] [place] [address]Dr. Lisa Martinez CO2 [Moles/Vol] 25.6 mmol/L Normal 21.0-32.0 The [facility] Comment on above: Performed By: #### B MP ####[facility] [address] [place] [address]Dr. Lisa Martinez Creatinine [Mass/Vol] 1.53 mg/dL Critically high 0.55-1.02 [facility] Comment on above: Performed By: #### B MP ####[facility] [address] [place] [address]Dr. Lisa Martinez EGFR-AF ANDORRAN 39 mL/min/1.73m2 Critically low >=60 [facility] Comment on above: Performed By: #### B MP ####[facility] [address] [place] [address]DrIngrid Martinez EGFR-NON AF ANDORRAN 32 mL/min/1.73m2 Critically low >=60 [facility] Comment on above: Performed By: #### B MP ####[facility] [address] [place] [address]DrIngrid Martinez Glucose [Mass/Vol] 69 mg/dL Critically low 74-106 [facility] Comment on above: Performed By: #### B MP ####[facility] [address] [place] [address]DrIngrid Martinez Potassium [Moles/Vol] 5.1 mmol/L Normal 3.5-5.1 [facility] Comment on above: Performed By: #### B MP ####[facility] [address] [place] [address]Dr. Lisa Martinez Sodium [Moles/Vol] 142 mmol/L Normal 136-145 [facility] Comment on above: Performed By: #### B MP ####[facility] [address] [place] [address]Dr. Lisa Martinez Urea nitrogen [Mass/Vol] 32.0 mg/dL Critically high 7.0-18.0 [facility] Comment on above: Performed By: #### B MP ####[facility] [address] [place] [address]DrIngrid Martienz Urea nitrogen/Creatinin e [Mass ratio] 20.9 mg/mg Normal [facility] Comment on above: Performed By: #### B MP ####[facility] [address] [place] [address]Dr. Lisa Martinez BNPon 10-08-2022 Natriuretic peptide B (Bld) [Mass/Vol] 3489.0 pg/mL Critically high <=1,800.0 [facility] Comment on above: Performed By: #### B FISH HATCHERY ASSISTANT, BMP #### [facility] [address] [address] [address] Lisa Martinez CBC AUTO DIFFon 10-08-2022 BASO # 0.0 103/ul Normal 0.0-0.1 [facility] Comment on above: Performed By: #### B FISH HATCHERY ASSISTANT, BMP #### [facility] [address] [place] [address] Dr. Lisa Martinez Basophils/100 WBC (Bld) 0.6 % Normal 0.2-2.0 [facility] Comment on above: Performed By: #### B FISH HATCHERY ASSISTANT, BMP #### [facility] [address] [place] [address] Dr. Lisa Martinez EO # 0.2 103/ul Normal 0.0-0.7 The [facility] Comment on above: Performed By: #### B FISH HATCHERY ASSISTANT, BMP #### [facility] [address] [place] [address] Dr. Lisa Martinez Eosinophils/100 WBC (Bld) 3.5 % Normal 0.9-7.0 [facility] Comment on above: Performed By: #### B FISH HATCHERY ASSISTANT, BMP #### [facility] [address] [place] [address] Dr. Lisa Martinez Erythrocyte distribution width (RBC) [Ratio] 15.5 % Critically high 11.0-15.0 [facility] Comment on above: Performed By: #### B FISH HATCHERY ASSISTANT, BMP #### [facility] [address] [place] [address] Dr. Lisa Martinez Hematocrit (Bld) [Volume fraction] 31.8 % Critically low 36.0-48.0 [facility] Comment on above: Performed By: #### B FISH HATCHERY ASSISTANT, BMP #### [facility] [address] [place] [address] Dr. Lisa Martinez Hemoglobin (Bld) [Mass/Vol] 9.8 g/dL Critically low 12.0-16.0 The [facility] Comment on above: Performed By: #### B FISH HATCHERY ASSISTANT, BMP #### [facility] [address] [place] [address] Dr. Lisa Martinez IG # 0.02 10e3/ul Normal 0.00-0.03 [facility] Comment on above: Performed By: #### B FISH HATCHERY ASSISTANT, BMP #### [facility] [address] [address] [address] Lisa Martinez IG % 0.3 % Normal 0.0-0.5 [facility] Comment on above: Performed By: #### B FISH HATCHERY ASSISTANT, BMP #### [facility] [address] [address] [address] Lisa Martinez LYMPH # 0.9 103/ul Critically low 1.2-3.[address] [facility] Comment on above: Performed By: #### B FISH HATCHERY ASSISTANT, BMP #### [facility] [address] [place] [address] Dr. Lisa Martinez Lymphocytes/100 WBC (Bld) 14.0 % Critically low 20.5-60.0 The [facility] Comment on above: Performed By: #### B FISH HATCHERY ASSISTANT, BMP #### [facility] [address] [place] [address] Dr. Lisa Martinez MANUAL DIFF REQ NO Normal [facility] Comment on above: Performed By: #### B FISH HATCHERY ASSISTANT, BMP #### [facility] [address] [place] [address] Dr. Lisa Martinez MCH (RBC) [Entitic mass] 29.9 pg Normal 26.7-34.0 [facility] Comment on above: Performed By: #### B FISH HATCHERY ASSISTANT, BMP #### [facility] [address] [place] [address] Dr. Lisa Martinez MCHC (RBC) [Mass/Vol] 30.8 g/dL Normal 29.9-35.2 The [facility] Comment on above: Performed By: #### B FISH HATCHERY ASSISTANT, BMP #### [facility] [address] [place] [address] Dr. Lisa Martinez MCV (RBC) [Entitic vol] 97.0 fL Normal 81.0-99.0 The [facility] Comment on above: Performed By: #### B FISH HATCHERY ASSISTANT, BMP #### [facility] [address] [place] [address] Dr. Lisa Martinez MONO # 0.8 103/ul Normal 0.3-0.8 [facility] Comment on above: Performed By: #### B FISH HATCHERY ASSISTANT, BMP #### [facility] [address] [place] [address] Dr. Lisa Martinez Monocytes/100 WBC (Bld) 11.9 % Normal 1.7-12.0 [facility] Comment on above: Performed By: #### B FISH HATCHERY ASSISTANT, BMP #### [facility] [address] [place] [address] Dr. Lisa Martinez NEUT # 4.4 103/ul Normal 1.4-6.5 [facility] Comment on above: Performed By: #### B FISH HATCHERY ASSISTANT, BMP #### [facility] [address] [place] [address] Dr. Lisa Martinez Neutrophils/100 WBC (Bld) 69.7 % Normal 43.0-75.0 [facility] Comment on above: Performed By: #### B FISH HATCHERY ASSISTANT, BMP #### [facility] [address] [place] [address] Dr. Lisa Martinez Platelet mean volume (Bld) [Entitic vol] 10.3 fL Normal 9.5-13.5 [facility] Comment on above: Performed By: #### B FISH HATCHERY ASSISTANT, BMP #### [facility] [address] [place] [address] Dr. Lisa Martinez PLT 223 103/ul Normal 150-450 [facility] Comment on above: Performed By: #### B FISH HATCHERY ASSISTANT, BMP #### [facility] [address] [place] [address] Dr. Lisa Martinez RBC 3.28 106/ul Critically low 4.20-5.40 [facility] Comment on above: Performed By: #### B FISH HATCHERY ASSISTANT, BMP #### [facility] [address] [place] [address] Dr. Lisa Martinez WBC 6.3 103/ul Normal 4.0-11.0 [facility] Comment on above: Performed By: #### B FISH HATCHERY ASSISTANT, BMP #### [facility] [address] [place] [address] Dr. Lisa Martinez DIGOXINon 10-08-2022 DIG 1.6 ng/mL Normal 0.9-2.0 [facility] Comment on above: Performed By: #### D IG ####[facility] [address] [place], [place] [address]VsDr. Lisa Martinez POINT OF CARE GLUCOSEon Glucose [Mass/Vol] 226 mg/dL Critically high 74-106 [facility] Comment on above: Performed By: #### P OCGLUC ####[facility] [address] [place], [place] [address]AzDr. Lisa Martinez Glucose [Mass/Vol] 107 mg/dL Critically high 74-106 [facility] Comment on above: Performed By: #### B LDCX2 #### [facility] [address] [address] [address] Lisa Martinez PROF CHEM 8 (BAS METB)on Anion gap [Moles/Vol] 11.7 mmol/L Normal [facility] Comment on above: Performed By: #### B FISH HATCHERY ASSISTANT, BMP #### [facility] [address] [address] [address] Lisa Martinez Calcium [Mass/Vol] 9.2 mg/dL Normal 8.5-10.1 [facility] Comment on above: Performed By: #### B FISH HATCHERY ASSISTANT, BMP #### [facility] [address] [address] [address] Lisa Martinez Chloride [Moles/Vol] 102 mmol/L Normal 98-107 [facility] Comment on above: Performed By: #### B FISH HATCHERY ASSISTANT, BMP #### [facility] [address] [address] [address] Lisa Martinez CO2 [Moles/Vol] 29.3 mmol/L Normal 21.0-32.0 [facility] Comment on above: Performed By: #### B FISH HATCHERY ASSISTANT, BMP #### [facility] [address] [address] [address] Lisa Martinez Creatinine [Mass/Vol] 1.27 mg/dL Critically high 0.55-1.02 [facility] Comment on above: Performed By: #### B FISH HATCHERY ASSISTANT, BMP #### [facility] [address] [address] [address] Lisa Martinez EGFR-AF ANDORRAN 49 mL/min/1.73m2 Critically low >=60 [facility] Comment on above: Performed By: #### B FISH HATCHERY ASSISTANT, BMP #### [facility] [address] [place] [address] Dr. Lisa Martinez EGFR-NON AF ANDORRAN 40 mL/min/1.73m2 Critically low >=60 [facility] Comment on above: Performed By: #### B FISH HATCHERY ASSISTANT, BMP #### [facility] [address] [address] [address] Lisa Martinez Glucose [Mass/Vol] 98 mg/dL Normal 74-106 [facility] Comment on above: Performed By: #### B FISH HATCHERY ASSISTANT, BMP #### [facility] [address] [place] [address] Dr. Lisa Martinez Potassium [Moles/Vol] 4.0 mmol/L Normal 3.5-5.1 [facility] Comment on above: Performed By: #### B FISH HATCHERY ASSISTANT, BMP #### [facility] [address] [place] [address] Dr. Lisa Martinez Sodium [Moles/Vol] 139 mmol/L Normal 136-145 [facility] Comment on above: Performed By: #### B FISH HATCHERY ASSISTANT, BMP #### [facility] [address] [place] [address] Dr. Lisa Martinez Urea nitrogen [Mass/Vol] 26.0 mg/dL Critically high 7.0-18.0 [facility] Comment on above: Performed By: #### B FISH HATCHERY ASSISTANT, BMP #### [facility] [address] [place] [address] Dr. Lisa Martinez Urea nitrogen/Creatinin e [Mass ratio] 20.5 mg/mg Normal [facility] Comment on above: Performed By: #### B FISH HATCHERY ASSISTANT, BMP #### [facility] [address] [place] [address] Dr. Lisa Martinez BNPon 10-07-2022 Natriuretic peptide B (Bld) [Mass/Vol] 6039.0 pg/mL Critically high <=1,800.0 [facility] Comment on above: Performed By: #### B FISH HATCHERY ASSISTANT ####[facility] [address] [place] [address]Dr. Lisa Martinez CBC AUTO DIFFon 10-07-2022 BASO # 0.1 103/ul Normal 0.0-0.1 [facility] Comment on above: Performed By: #### K U #### [facility] [address] [address] [address] Lisa Martinez Basophils/100 WBC (Bld) 0.7 % Normal 0.2-2.0 [facility] Comment on above: Performed By: #### K U #### [facility] [address] [address] [address] Lisa Martinez EO # 0.3 103/ul Normal 0.0-0.7 [facility] Comment on above: Performed By: #### K U #### [facility] [address] [address] [address] Lisa Martinez Eosinophils/100 WBC (Bld) 4.0 % Normal 0.9-7.0 [facility] Comment on above: Performed By: #### K U #### [facility] [address] [address] [address] Lisa Martinez Erythrocyte distribution width (RBC) [Ratio] 15.6 % Critically high 11.0-15.0 [facility] Comment on above: Performed By: #### K U #### [facility] [address] [address] [address] Lisa Martinez Hematocrit (Bld) [Volume fraction] 34.0 % Critically low 36.0-48.0 [facility] Comment on above: Performed By: #### K U #### [facility] [address] [address] [address] Lisa Martinez Hemoglobin (Bld) [Mass/Vol] 10.4 g/dL Critically low 12.0-16.0 [facility] Comment on above: Performed By: #### K U #### [facility] [address] [address] [address] Lisa Martinez IG # 0.02 10e3/ul Normal 0.00-0.03 [facility] Comment on above: Performed By: #### K U #### [facility] [address] [place] [address] Dr. Lisa Martinez IG % 0.3 % Normal 0.0-0.5 [facility] Comment on above: Performed By: #### K U #### [facility] [address] [place] [address] Dr. Lisa Martinez LYMPH # 1.0 103/ul Critically low 1.2-3.[address] [facility] Comment on above: Performed By: #### K U #### [facility] [address] [place] [address] Dr. Lisa Martinez Lymphocytes/100 WBC (Bld) 14.9 % Critically low 20.5-60.0 [facility] Comment on above: Performed By: #### K U #### [facility] [address] [place] [address] Dr. Lisa Martinez MANUAL DIFF REQ NO Normal [facility] Comment on above: Performed By: #### K U #### [facility] [address] [place] [address] Dr. Lisa Martinez MCH (RBC) [Entitic mass] 29.8 pg Normal 26.7-34.0 [facility] Comment on above: Performed By: #### K U #### [facility] [address] [place] [address] Dr. Lisa Martinez MCHC (RBC) [Mass/Vol] 30.6 g/dL Normal 29.9-35.2 [facility] Comment on above: Performed By: #### K U #### [facility] [address] [place] [address] Dr. Lisa Martinez MCV (RBC) [Entitic vol] 97.4 fL Normal 81.0-99.0 [facility] Comment on above: Performed By: #### K U #### [facility] [address] [place] [address] Dr. Lisa Martinez MONO # 0.6 103/ul Normal 0.3-0.8 [facility] Comment on above: Performed By: #### K U #### [facility] [address] [place] [address] Dr. Lisa Martinez Monocytes/100 WBC (Bld) 8.8 % Normal 1.7-12.0 [facility] Comment on above: Performed By: #### K U #### [facility] [address] [place] [address] Dr. Lisa Martinez NEUT # 4.9 103/ul Normal 1.4-6.5 [facility] Comment on above: Performed By: #### K U #### [facility] [address] [place] [address] Dr. Lisa Martinez Neutrophils/100 WBC (Bld) 71.3 % Normal 43.0-75.0 [facility] Comment on above: Performed By: #### K U #### [facility] [address] [place] [address] Dr. Lisa Martinez Platelet mean volume (Bld) [Entitic vol] 10.5 fL Normal 9.5-13.5 [facility] Comment on above: Performed By: #### K U #### [facility] [address] [place] [address] Dr. Lisa Martinez PLT 251 103/ul Normal 150-450 [facility] Comment on above: Performed By: #### K U #### [facility] [address] [place] [address] Dr. Lisa Martinez RBC 3.49 106/ul Critically low 4.20-5.40 [facility] Comment on above: Performed By: #### K U #### [facility] [address] [place] [address] Dr. Lisa Martinez WBC 6.8 103/ul Normal 4.0-11.0 [facility] Comment on above: Performed By: #### K U #### [facility] [address] [place] [address] Dr. Lisa Martinez DIGOXINon 10-07-2022 DIG 1.7 ng/mL Normal 0.9-2.0 [facility] Comment on above: Performed By: #### U RCX #### [facility] [address] [place] [address] Dr. Lisa Martinez POINT OF CARE GLUCOSEon 04-0 Glucose [Mass/Vol] 185 mg/dL Critically high 74-106 [facility] Comment on above: Performed By: #### B FISH HATCHERY ASSISTANT, BMP #### [facility] [address] [address] [address] Lisa Martinez Glucose [Mass/Vol] 120 mg/dL Critically high -106 [facility] Comment on above: Performed By: #### C VDTBH #### [facility] [address] [place] [address] Dr. Lisa Martinez Glucose [Mass/Vol] 218 mg/dL Critically high -106 [facility] Comment on above: Performed By: #### B LDCX2 #### [facility] [address] [place] [address] Dr. Lisa Martinez PROF CHEM 8 (BAS METB)on Anion gap [Moles/Vol] 12.3 mmol/L Normal [facility] Comment on above: Performed By: #### B FISH HATCHERY ASSISTANT, BMP #### [facility] [address] [place] [address] Dr. Lisa Martinez Calcium [Mass/Vol] 9.3 mg/dL Normal 8.5-10.1 [facility] Comment on above: Performed By: #### B FISH HATCHERY ASSISTANT, BMP #### [facility] [address] [place] [address] Dr. Lisa Martinez Chloride [Moles/Vol] 102 mmol/L Normal 98-107 [facility] Comment on above: Performed By: #### B FISH HATCHERY ASSISTANT, BMP #### [facility] [address] [place] [address] Dr. Lisa Martinez CO2 [Moles/Vol] 30.8 mmol/L Normal 21.0-32.0 [facility] Comment on above: Performed By: #### B FISH HATCHERY ASSISTANT, BMP #### [facility] [address] [place] [address] Dr. Lisa Martinez Creatinine [Mass/Vol] 1.45 mg/dL Critically high 0.55-1.02 [facility] Comment on above: Performed By: #### B FISH HATCHERY ASSISTANT, BMP #### [facility] [address] [address] [address] Lisa Martinez EGFR-AF ANDORRAN 42 mL/min/1.73m2 Critically low >=60 [facility] Comment on above: Performed By: #### B FISH HATCHERY ASSISTANT, BMP #### [facility] [address] [address] [address] Lisa Martinez EGFR-NON AF ANDORRAN 34 mL/min/1.73m2 Critically low >=60 [facility] Comment on above: Performed By: #### B FISH HATCHERY ASSISTANT, BMP #### [facility] [address] [address] [address] Lisa Martinez Glucose [Mass/Vol] 103 mg/dL Normal 74-106 [facility] Comment on above: Performed By: #### B FISH HATCHERY ASSISTANT, BMP #### [facility] [address] [place] [address] Dr. Lisa Martinez Potassium [Moles/Vol] 4.1 mmol/L Normal 3.5-5.1 [facility] Comment on above: Performed By: #### B FISH HATCHERY ASSISTANT, BMP #### [facility] [address] [address] [address] Lisa Martinez Sodium [Moles/Vol] 141 mmol/L Normal 136-145 [facility] Comment on above: Performed By: #### B FISH HATCHERY ASSISTANT, BMP #### [facility] [address] [address] [address] Lisa Martinez Urea nitrogen [Mass/Vol] 26.0 mg/dL Critically high 7.0-18.0 [facility] Comment on above: Performed By: #### B FISH HATCHERY ASSISTANT, BMP #### [facility] [address] [address] [address] Lisa Martinez Urea nitrogen/Creatinin e [Mass ratio] 17.9 mg/mg Normal [facility] Comment on above: Performed By: #### B FISH HATCHERY ASSISTANT, BMP #### [facility] [address] [address] [address] Lisa Martinez BNPon 10-06-2022 Natriuretic peptide B (Bld) [Mass/Vol] 6211.0 pg/mL Critically high <=1,800.0 [facility] Comment on above: Performed By: #### C MADM, LIVER, CMP, BNP ####[facility] [address] [address]DrIngrid Martinez CARDIAC DONY ADMITon 023 CK [Catalytic activity/Vol] 50 U/L Normal 26-192 [facility] Comment on above: Performed By: #### C MADM, LIVER, CMP, BNP ####[facility] [address] [address]DrIngrid Martinez CK.MB [Mass/Vol] 0.89 ng/mL Normal <=3.60 [facility] Comment on above: Performed By: #### C MADM, LIVER, CMP, BNP ####[facility] [address] [address]DrIngrid Martinez HSTROP 19.1 pg/mL Normal 4.0-51.3 [facility] Comment on above: Result Comment: CUT- OFF POINTS HAVE BEEN ESTABLISHED BASED ON THE FOURTH UNIVERSAL DEFINITIONS OF MYOCARDIAL INFARCTION. THE UPPER REFERENCE LIMIT (URL) OF TROPONIN, DEFINED THE 99TH PERCENTILE OF cTnI DISTRIBUTION IN A REFERENCE POPULATION, HAS BEEN CONFIRMED THE DECISION THRESHOLD FOR SC DIAGNOSIS. Performed By: #### C MADM, LIVER, CMP, BNP ####[facility] [address] [address]DrIngrid Martinez LISSY 56 ng/mL Normal 9-82 [facility] Comment on above: Performed By: #### C MADM, LIVER, CMP, BNP ####[facility] [address] [id number] Martinez CBC AUTO DIFFon 10-06-2022 BASO # 0.1 103/ul Normal 0.0-0.1 [facility] Comment on above: Performed By: #### C BC #### [facility] [id number] Lisa Martinez Basophils/100 WBC (Bld) 0.7 % Normal 0.2-2.0 [facility] Comment on above: Performed By: #### C BC #### [facility] [address] [place] [address] Dr. Lisa Martinez EO # 0.2 103/ul Normal 0.0-0.7 [facility] Comment on above: Performed By: #### C BC #### [facility] [address] [place] [address] Dr. Lisa Martinez Eosinophils/100 WBC (Bld) 2.0 % Normal 0.9-7.0 [facility] Comment on above: Performed By: #### C BC #### [facility] [address] [place] [address] Dr. Lisa Martinez Erythrocyte distribution width (RBC) [Ratio] 15.7 % Critically high 11.0-15.0 [facility] Comment on above: Performed By: #### C BC #### [facility] [address] [place] [address] Dr. Lisa Martinez Hematocrit (Bld) [Volume fraction] 32.4 % Critically low 36.0-48.0 [facility] Comment on above: Performed By: #### C BC #### [facility] [address] [place] [address] Dr. Lisa Martinez Hemoglobin (Bld) [Mass/Vol] 10.0 g/dL Critically low 12.0-16.0 [facility] Comment on above: Performed By: #### C BC #### [facility] [address] [place] [address] Dr. Lisa Martinez IG # 0.02 10e3/ul Normal 0.00-0.03 [facility] Comment on above: Performed By: #### C BC #### [facility] [address] [place] [address] Dr. Lisa Martinez IG % 0.3 % Normal 0.0-0.5 [facility] Comment on above: Performed By: #### C BC #### [facility] [address] [place] [address] Dr. Lisa Martinez LYMPH # 0.7 103/ul Critically low 1.2-3.[address] [facility] Comment on above: Performed By: #### C BC #### [facility] [address] [address] [address] Lisa Martinez Lymphocytes/100 WBC (Bld) 9.2 % Critically low 20.5-60.0 [facility] Comment on above: Performed By: #### C BC #### [facility] [address] [address] [address] Lisa Martinez MANUAL DIFF REQ NO Normal [facility] Comment on above: Performed By: #### C BC #### [facility] [address] [place] [address] Dr. Lisa Martinez MCH (RBC) [Entitic mass] 29.8 pg Normal 26.7-34.0 [facility] Comment on above: Performed By: #### C BC #### [facility] [address] [place] [address] Dr. Lisa Martinez MCHC (RBC) [Mass/Vol] 30.9 g/dL Normal 29.9-35.2 [facility] Comment on above: Performed By: #### C BC #### [facility] [address] [place] [address] Dr. Lisa Martinez MCV (RBC) [Entitic vol] 96.4 fL Normal 81.0-99.0 [facility] Comment on above: Performed By: #### C BC #### [facility] [address] [place] [address] Dr. Lisa Martinez MONO # 0.5 103/ul Normal 0.3-0.8 [facility] Comment on above: Performed By: #### C BC #### [facility] [address] [place] [address] Dr. Lisa Martinez Monocytes/100 WBC (Bld) 6.4 % Normal 1.7-12.0 [facility] Comment on above: Performed By: #### C BC #### [facility] [address] [place] [address] Dr. Lisa Martinez NEUT # 6.2 103/ul Normal 1.4-6.5 [facility] Comment on above: Performed By: #### C BC #### [facility] [address] [address] [address] Lisa Martinez Neutrophils/100 WBC (Bld) 81.4 % Critically high 43.0-75.0 [facility] Comment on above: Performed By: #### C BC #### [facility] [address] [address] [address] Lisa Martinez Platelet mean volume (Bld) [Entitic vol] 10.2 fL Normal 9.5-13.5 [facility] Comment on above: Performed By: #### C BC #### [facility] [address] [address] [address] Lisa Martinez PLT 228 103/ul Normal 150-450 [facility] Comment on above: Performed By: #### C BC #### [facility] [address] [address] [address] Lisa Martinez RBC 3.36 106/ul Critically low 4.20-5.40 [facility] Comment on above: Performed By: #### C BC #### [facility] [address] [address] [address] Lisa Martinez WBC 7.6 103/ul Normal 4.0-11.0 [facility] Comment on above: Performed By: #### C BC #### [facility] [address] [place] [address] Dr. Lisa Martinez CTA CHEST WO W [...] JENNY MARQUEZ Date: 2022-10-06 14:18 Normal [facility] Covid-19 PCR (CVDTB)on 09-08 SARS-CoV-2 (COVID-19) RNA RACIEL+probe Ql (Unsp spec) Not detected Normal NOT DETECTED [facility] Comment on above: Result Comment: When [...] for this test is supported by the [place] of Health and Human Service's declaration that [...] longer be used). Performed By: #### C [facility] ####[facility] [address] [address]DrIngrid Martinez DIGOXINon 10-06-2022 DIG 2.3 ng/mL Critically high 0.9-2.0 [facility] Comment on above: Performed By: #### C BC #### [facility] [address] [address] [address] Lisa Martinez LIVER PROFILEon 10-06-2022 BILI, CONJUGATED 0.4 mg/dL Critically high 0.0-0.2 [facility] Comment on above: Performed By: #### C MADM, LIVER, CMP, BNP ####[facility] [address] [address]DrIngrid Martinez POINT OF CARE GLUCOSEon 09-08 Glucose [Mass/Vol] 154 mg/dL Critically high 74-106 [facility] Comment on above: Performed By: #### B FISH HATCHERY ASSISTANT, BMP #### [facility] [address] [address] [address] Lisa Martinez Glucose [Mass/Vol] 77 mg/dL Normal 74-106 [facility] Comment on above: Performed By: #### B FISH HATCHERY ASSISTANT, BMP #### [facility] [address] [address] [address] Lisa Martinez PROF 14(COMP METB)on 023 Albumin [Mass/Vol] 3.5 g/dL Normal 3.4-5.0 [facility] Comment on above: Performed By: #### C MADM, LIVER, CMP, BNP ####[facility] [address] [address]DrIngrid Martinez Albumin/Globulin [Mass ratio] 0.8 {ratio} Normal [facility] Comment on above: Performed By: #### C MADM, LIVER, CMP, BNP ####[facility] [address] [address]DrIngrid Martinez ALP [Catalytic activity/Vol] 94 U/L Normal 46-116 [facility] Comment on above: Performed By: #### C MADM, LIVER, CMP, BNP ####[facility] [address] [address]Dr. Lisa Martinez ALT [Catalytic activity/Vol] 13 U/L Critically low 14-59 [facility] Comment on above: Performed By: #### C MADM, LIVER, CMP, BNP ####[facility] [address] [address]Dr. Lisa Martinez Anion gap [Moles/Vol] 11.1 mmol/L Normal [facility] Comment on above: Performed By: #### C MADM, LIVER, CMP, BNP ####[facility] [address] [address]Dr. Lisa Martinez AST [Catalytic activity/Vol] 15 U/L Normal 15-37 [facility] Comment on above: Performed By: #### C MADM, LIVER, CMP, BNP ####[facility] [address] [address]Dr. Lisa Martinez Bilirubin [Mass/Vol] 1.6 mg/dL Critically high 0.2-1.0 [facility] Comment on above: Performed By: #### C MADM, LIVER, CMP, BNP ####[facility] [address] [address]Dr. Lisa Martinez Calcium [Mass/Vol] 9.2 mg/dL Normal 8.5-10.1 [facility] Comment on above: Performed By: #### C MADM, LIVER, CMP, BNP ####[facility] [address] [address]Dr. Lisa Martinez Chloride [Moles/Vol] 106 mmol/L Normal 98-107 [facility] Comment on above: Performed By: #### C MADM, LIVER, CMP, BNP ####[facility] [address] [address]Dr. Lisa Martinez CO2 [Moles/Vol] 29.0 mmol/L Normal 21.0-32.0 [facility] Comment on above: Performed By: #### C MADM, LIVER, CMP, BNP ####[facility] [address] [address]Dr. Lisa Martinez Creatinine [Mass/Vol] 1.43 mg/dL Critically high 0.55-1.02 [facility] Comment on above: Performed By: #### C MADM, LIVER, CMP, BNP ####[facility] [address] [address]Dr. Lisa Martinez EGFR-AF ANDORRAN 42 mL/min/1.73m2 Critically low >=60 [facility] Comment on above: Performed By: #### C MADM, LIVER, CMP, BNP ####[facility] [address] [address]Dr. Lisa Martinez EGFR-NON AF ANDORRAN 35 mL/min/1.73m2 Critically low >=60 [facility] Comment on above: Performed By: #### C MADM, LIVER, CMP, BNP ####[facility] [address] [address]Dr. Lisa Martinez Globulin (S) [Mass/Vol] 4.2 g/dL Normal [facility] Comment on above: Performed By: #### C MADM, LIVER, CMP, BNP ####[facility] [address] [address]Dr. Lisa Martinez Glucose [Mass/Vol] 114 mg/dL Critically high 74-106 [facility] Comment on above: Performed By: #### C MADM, LIVER, CMP, BNP ####[facility] [address] [address]Dr. Lisa Martinez Potassium [Moles/Vol] 4.1 mmol/L Normal 3.5-5.1 [facility] Comment on above: Performed By: #### C MADM, LIVER, CMP, BNP ####[facility] [address] [address]Dr. Fabianachapis Martinez Protein [Mass/Vol] 7.7 g/dL Normal 6.4-8.2 [facility] Comment on above: Performed By: #### C MADM, LIVER, CMP, BNP ####[facility] [address] [address]Dr. Fabianachapis Martinez Sodium [Moles/Vol] 142 mmol/L Normal 136-145 [facility] Comment on above: Performed By: #### C MADM, LIVER, CMP, BNP ####[facility] [address] [address]DrIngrid Martinez Urea nitrogen [Mass/Vol] 26.0 mg/dL Critically high 7.0-18.0 [facility] Comment on above: Performed By: #### C MADM, LIVER, CMP, BNP ####[facility] [address] [address]DrIngrid Martinez Urea nitrogen/Creatinin e [Mass ratio] 18.2 mg/mg Normal [facility] Comment on above: Performed By: #### C MADM, LIVER, CMP, BNP ####[facility] [address] [address]Dr. Lisa Martinez PROTIMEon 10-06-2022 INR Coag (PPP) [Relative time] 1.09 {INR} Normal [facility] Comment on above: Performed By: #### B FISH HATCHERY ASSISTANT, BMP #### [facility] [address] [place] [address] Dr. Lisa Martinez INR GUIDELINES SEE BELOW Normal [facility] Comment on above: Result Comment: ANTONY RED INR: 2.0 - 3.0 CONDITIONS NOT LISTED BELOW 2.5 - 3.5 FOR PROSTHETIC HEART VALVE REPLACEMENT 2.5 - 3.5 RECURRENT THROMBOSIS Performed By: #### B FISH HATCHERY ASSISTANT, BMP #### [facility] [address] [address] [address] Lisa Martinez PT Coag (PPP) [Time] 11.5 s Normal 9.0-11.6 [facility] Comment on above: Performed By: #### B FISH HATCHERY ASSISTANT, BMP #### [facility] [address] [address] [address] Lisa Martinez PTTon 10-06-2022 aPTT Coag (Bld) [Time] 26.5 s Normal 22.3-36.2 [facility] Comment on above: Performed By: #### B FISH HATCHERY ASSISTANT, BMP #### [facility] [address] [address] [address] Lisa Martinez ECHOCARDIO M/2D COMPLETEon 1 08-27-2021 ECHOCARDIO M/2D COMPLETE Patient: JENNI VILLEGAS Exam Date: 06/26/2022 : 1940 Gender:F Ordering : FARZANEH ARNDT Admission #: [id number] Family : Order #: [id number] CLICK HERE TO VIEW EXAM ECHOCARDIOGRAM REPORT [...] 0.81 cm2, 0.87 cm2, 0.77 cm2 Deceleration Sully: 0.72 m/s2 Pressure Half-Time: 1.18 s Peak [...] M.D. on 06/29/2022 at 15:34 Normal [facility] CBC AUTO DIFFon 05-02-2022 BASO # 0.0 103/ul Normal 0.0-0.1 [facility] Comment on above: Performed By: #### C BC #### [facility] [address] [place] [address] Dr. Lisa Martinez Basophils/100 WBC (Bld) 0.4 % Normal 0.2-2.0 [facility] Comment on above: Performed By: #### C BC #### [facility] [address] [place] [address] Dr. Lisa Martinez EO # 0.1 103/ul Normal 0.0-0.7 [facility] Comment on above: Performed By: #### C BC #### [facility] [address] [place] [address] Dr. Lisa Martinez Eosinophils/100 WBC (Bld) 1.8 % Normal 0.9-7.0 [facility] Comment on above: Performed By: #### C BC #### [facility] [address] [place] [address] Dr. Lisa Martinez Erythrocyte distribution width (RBC) [Ratio] 13.3 % Normal 11.0-15.0 [facility] Comment on above: Performed By: #### C BC #### [facility] [address] [place] [address] Dr. Lisa Martinez Hematocrit (Bld) [Volume fraction] 38.4 % Normal 36.0-48.0 [facility] Comment on above: Performed By: #### C BC #### [facility] [address] [place] [address] Dr. Lisa Martinez Hemoglobin (Bld) [Mass/Vol] 12.0 g/dL Normal 12.0-16.0 [facility] Comment on above: Performed By: #### C BC #### [facility] [address] [place] [address] Dr. Lisa Martinez IG # 0.09 10e3/ul Critically high 0.00-0.03 [facility] Comment on above: Performed By: #### C BC #### [facility] [address] [place] [address] Dr. Lisa Martinez IG % 1.6 % Critically high 0.0-0.5 [facility] Comment on above: Performed By: #### C BC #### [facility] [address] [place] [address] Dr. Lisa Martinez LYMPH # 0.9 103/ul Critically low 1.2-3.[address] [facility] Comment on above: Performed By: #### C BC #### [facility] [address] [place] [address] Dr. Lisa Martinez Lymphocytes/100 WBC (Bld) 16.0 % Critically low 20.5-60.0 [facility] Comment on above: Performed By: #### C BC #### [facility] [address] [place] [address] Dr. Lisa Martinez MANUAL DIFF REQ NO Normal [facility] Comment on above: Performed By: #### C BC #### [facility] [address] [place] [address] Dr. Lisa Martinez MCH (RBC) [Entitic mass] 30.2 pg Normal 26.7-34.0 [facility] Comment on above: Performed By: #### C BC #### [facility] [address] [place] [address] Dr. Lisa Martinez MCHC (RBC) [Mass/Vol] 31.3 g/dL Normal 29.9-35.2 [facility] Comment on above: Performed By: #### C BC #### [facility] [address] [place] [address] Dr. Lisa Martinez MCV (RBC) [Entitic vol] 96.7 fL Normal 81.0-99.0 [facility] Comment on above: Performed By: #### C BC #### [facility] [address] [place] [address] Dr. Lisa Martinez MONO # 0.6 103/ul Normal 0.3-0.8 [facility] Comment on above: Performed By: #### C BC #### [facility] [address] [place] [address] Dr. Lisa Martinez Monocytes/100 WBC (Bld) 11.3 % Normal 1.7-12.0 [facility] Comment on above: Performed By: #### C BC #### [facility] [address] [address] [address] Lisa Martinez NEUT # 3.9 103/ul Normal 1.4-6.5 [facility] Comment on above: Performed By: #### C BC #### [facility] [address] [place] [address] Dr. Lisa Mratinez Neutrophils/100 WBC (Bld) 68.9 % Normal 43.0-75.0 [facility] Comment on above: Performed By: #### C BC #### [facility] [address] [place] [address] Dr. Lisa Martinez Platelet mean volume (Bld) [Entitic vol] 10.7 fL Normal 9.5-13.5 [facility] Comment on above: Performed By: #### C BC #### [facility] [address] [place] [address] Dr. Lisa Martinez PLT 164 103/ul Normal 150-450 [facility] Comment on above: Performed By: #### C BC #### [facility] [address] [place] [address] Dr. Lisa Martinez RBC 3.97 106/ul Critically low 4.20-5.40 [facility] Comment on above: Performed By: #### C BC #### [facility] [address] [place] [address] Dr. Lisa Martinez WBC 5.6 103/ul Normal 4.0-11.0 [facility] Comment on above: Performed By: #### C BC #### [facility] [address] [place] [address] Dr. Lisa Martinez PROF 14(COMP METB)on 022 Albumin [Mass/Vol] 2.8 g/dL Critically low 3.4-5.0 [facility] Comment on above: Performed By: #### U RCX #### [facility] [address] [address] [address] Lisa Martinez Albumin/Globulin [Mass ratio] 0.7 {ratio} Normal [facility] Comment on above: Performed By: #### U RCX #### [facility] [address] [address] [address] Lisa Martinez ALP [Catalytic activity/Vol] 74 U/L Normal 46-116 [facility] Comment on above: Performed By: #### U RCX #### [facility] [address] [address] [address] Lisa Martinez ALT [Catalytic activity/Vol] 11 U/L Critically low 14-59 [facility] Comment on above: Performed By: #### U RCX #### [facility] [address] [place] [address] Dr. Lisa Martinez Anion gap [Moles/Vol] 13.5 mmol/L Normal [facility] Comment on above: Performed By: #### U RCX #### [facility] [address] [place] [address] Dr. Lisa Martinez AST [Catalytic activity/Vol] 14 U/L Critically low 15-37 [facility] Comment on above: Performed By: #### U RCX #### [facility] [address] [place] [address] Dr. Lisa Martinez Bilirubin [Mass/Vol] 0.5 mg/dL Normal 0.2-1.0 [facility] Comment on above: Performed By: #### U RCX #### [facility] [address] [place] [address] Dr. Lisa Martinez Calcium [Mass/Vol] 8.5 mg/dL Normal 8.5-10.1 [facility] Comment on above: Performed By: #### U RCX #### [facility] [address] [place] [address] Dr. Lisa Martinez Chloride [Moles/Vol] 103 mmol/L Normal 98-107 [facility] Comment on above: Performed By: #### U RCX #### [facility] [address] [place] [address] Dr. Lisa Martinez CO2 [Moles/Vol] 24.5 mmol/L Normal 21.0-32.0 [facility] Comment on above: Performed By: #### U RCX #### [facility] [address] [address] [address] Lisa Martinez Creatinine [Mass/Vol] 1.43 mg/dL Critically high 0.55-1.02 [facility] Comment on above: Performed By: #### U RCX #### [facility] [address] [address] [address] Lisa Martinez EGFR-AF ANDORRAN 42 mL/min/1.73m2 Critically low >=60 [facility] Comment on above: Performed By: #### U RCX #### [facility] [address] [address] [address] Lisa Martinez EGFR-NON AF ANDORRAN 35 mL/min/1.73m2 Critically low >=60 [facility] Comment on above: Performed By: #### U RCX #### [facility] [address] [address] [address] Lisa Martinez Globulin (S) [Mass/Vol] 4.3 g/dL Normal [facility] Comment on above: Performed By: #### U RCX #### [facility] [address] [address] [address] Lisa Martinez Glucose [Mass/Vol] 142 mg/dL Critically high 74-106 [facility] Comment on above: Performed By: #### U RCX #### [facility] [address] [address] [address] Lisa Martinez Potassium [Moles/Vol] 4.0 mmol/L Normal 3.5-5.1 [facility] Comment on above: Performed By: #### U RCX #### [facility] [address] [address] [address] Lisa Martinez Protein [Mass/Vol] 7.1 g/dL Normal 6.4-8.2 [facility] Comment on above: Performed By: #### U RCX #### [facility] [address] [place] [address] Dr. Lisa Martinez Sodium [Moles/Vol] 137 mmol/L Normal 136-145 [facility] Comment on above: Performed By: #### U RCX #### [facility] [address] [place] [address] Dr. Lisa Martinez Urea nitrogen [Mass/Vol] 31.0 mg/dL Critically high 7.0-18.0 [facility] Comment on above: Performed By: #### U RCX #### [facility] [address] [place] [address] Dr. Lisa Martinez Urea nitrogen/Creatinin e [Mass ratio] 21.7 mg/mg Normal [facility] Comment on above: Performed By: #### U RCX #### [facility] [address] [place] [address] Dr. Lisa Martinez CBC AUTO DIFFon 05-01-2022 BASO # 0.0 103/ul Normal 0.0-0.1 [facility] Comment on above: Performed By: #### U RCX #### [facility] [address] [place] [address] Dr. Lisa Martinez Basophils/100 WBC (Bld) 0.3 % Normal 0.2-2.0 [facility] Comment on above: Performed By: #### U RCX #### [facility] [address] [place] [address] Dr. Lisa Martinez EO # 0.1 103/ul Normal 0.0-0.7 [facility] Comment on above: Performed By: #### U RCX #### [facility] [address] [place] [address] Dr. Lisa Martinez Eosinophils/100 WBC (Bld) 0.9 % Normal 0.9-7.0 [facility] Comment on above: Performed By: #### U RCX #### [facility] [address] [place] [address] Dr. Lisa Martinez Erythrocyte distribution width (RBC) [Ratio] 13.4 % Normal 11.0-15.0 [facility] Comment on above: Performed By: #### U RCX #### [facility] [address] [address] [address] Lisa Martinez Hematocrit (Bld) [Volume fraction] 41.6 % Normal 36.0-48.0 [facility] Comment on above: Performed By: #### U RCX #### [facility] [address] [place] [address] Dr. Lisa Martinez Hemoglobin (Bld) [Mass/Vol] 12.8 g/dL Normal 12.0-16.0 [facility] Comment on above: Performed By: #### U RCX #### [facility] [address] [place] [address] Dr. Lisa Martinez IG # 0.16 10e3/ul Critically high 0.00-0.03 [facility] Comment on above: Performed By: #### U RCX #### [facility] [address] [place] [address] Dr. Lisa Martinez IG % 1.6 % Critically high 0.0-0.5 [facility] Comment on above: Performed By: #### U RCX #### [facility] [address] [place] [address] Dr. Lisa Martinez LYMPH # 0.8 103/ul Critically low 1.2-3.[address] [facility] Comment on above: Performed By: #### U RCX #### [facility] [address] [place] [address] Dr. Lisa Martinez Lymphocytes/100 WBC (Bld) 7.8 % Critically low 20.5-60.0 [facility] Comment on above: Performed By: #### U RCX #### [facility] [address] [place] [address] Dr. Lisa Martinez MANUAL DIFF REQ NO Normal [facility] Comment on above: Performed By: #### U RCX #### [facility] [address] [place] [address] Dr. Lisa Martinez MCH (RBC) [Entitic mass] 29.8 pg Normal 26.7-34.0 [facility] Comment on above: Performed By: #### U RCX #### [facility] [address] [address] [address] Lisa Martinez MCHC (RBC) [Mass/Vol] 30.8 g/dL Normal 29.9-35.2 [facility] Comment on above: Performed By: #### U RCX #### [facility] [address] [address] [address] Lisa Martinez MCV (RBC) [Entitic vol] 96.7 fL Normal 81.0-99.0 [facility] Comment on above: Performed By: #### U RCX #### [facility] [address] [place] [address] Dr. Lisa Martinez MONO # 0.8 103/ul Normal 0.3-0.8 [facility] Comment on above: Performed By: #### U RCX #### [facility] [address] [place] [address] Dr. Lisa Martinez Monocytes/100 WBC (Bld) 8.4 % Normal 1.7-12.0 [facility] Comment on above: Performed By: #### U RCX #### [facility] [address] [place] [address] Dr. Lisa Martinez NEUT # 7.9 103/ul Critically high 1.4-6.5 [facility] Comment on above: Performed By: #### U RCX #### [facility] [address] [place] [address] Dr. Lisa Martinez Neutrophils/100 WBC (Bld) 81.0 % Critically high 43.0-75.0 [facility] Comment on above: Performed By: #### U RCX #### [facility] [address] [place] [address] Dr. Lisa Martinez Platelet mean volume (Bld) [Entitic vol] 10.6 fL Normal 9.5-13.5 [facility] Comment on above: Performed By: #### U RCX #### [facility] [address] [place] [address] Dr. Lisa Martinez PLT 211 103/ul Normal 150-450 [facility] Comment on above: Performed By: #### U RCX #### [facility] [address] [place] [address] Dr. Lisa Martinez RBC 4.30 106/ul Normal 4.20-5.40 [facility] Comment on above: Performed By: #### U RCX #### [facility] [address] [place] [address] Dr. Lisa Martinez WBC 9.8 103/ul Normal 4.0-11.0 [facility] Comment on above: Performed By: #### U RCX #### [facility] [address] [place] [address] Dr. Lisa Martinez DIGOXINon 05-01-2022 DIG 0.7 ng/mL Critically low 0.9-2.[address] [facility] Comment on above: Performed By: #### B FISH HATCHERY ASSISTANT, BMP #### [facility] [address] [place] [address] Dr. Lisa Martinez GI PANEL (PCR)on 05-01-2022 Adenovirus F 40/41 Not detected Normal NOT DETECTED [facility] Comment on above: Performed By: #### B LDCX2 #### [facility] [address] [place] [address] Dr. Lisa Martinez Astrovirus Not detected Normal NOT DETECTED [facility] Comment on above: Performed By: #### B LDCX2 #### [facility] [address] [place] [address] Dr. Lisa Martinez C. Diff toxin A/B Not detected Normal NOT DETECTED [facility] Comment on above: Performed By: #### B LDCX2 #### [facility] [address] [place] [address] Dr. Lisa Martinez Campylobacter Not detected Normal NOT DETECTED [facility] Comment on above: Performed By: #### B LDCX2 #### [facility] [address] [place] [address] Dr. Lisa Martinez Cryptosporidium Not detected Normal NOT DETECTED [facility] Comment on above: Performed By: #### B LDCX2 #### [facility] [address] [place] [address] Dr. Lisa Martinez Cyclos. Cayetanensis Not detected Normal NOT DETECTED [facility] Comment on above: Performed By: #### B LDCX2 #### [facility] [address] [place] [address] Dr. Lisa Martinez E. Coli O157 Not Applicable Normal Not Applicable [facility] Comment on above: Performed By: #### B LDCX2 #### [facility] [address] [place] [address] Dr. Lisa Martinez E. histolytica Not detected Normal NOT DETECTED [facility] Comment on above: Performed By: #### B LDCX2 #### [facility] [address] [place] [address] Dr. Lisa Martinez EAEC Not detected Normal NOT DETECTED [facility] Comment on above: Performed By: #### B LDCX2 #### [facility] [address] [place] [address] Dr. Lisa Martinez EIEC Not detected Normal NOT DETECTED [facility] Comment on above: Performed By: #### B LDCX2 #### [facility] [address] [place] [address] Dr. Lisa Martinez EPEC Not detected Normal NOT DETECTED [facility] Comment on above: Performed By: #### B LDCX2 #### [facility] [address] [place] [address] Dr. Lisa Martinez ETEC Not detected Normal NOT DETECTED [facility] Comment on above: Performed By: #### B LDCX2 #### [facility] [address] [place] [address] Dr. Lisa Martinez G. Lamblia Not detected Normal NOT DETECTED [facility] Comment on above: Performed By: #### B LDCX2 #### [facility] [address] [place] [address] Dr. Lisa MALDONADO CONTROLS PASSED Normal [facility] Comment on above: Performed By: #### B LDCX2 #### [facility] [address] [place] [address] Dr. Lisa WARRENNL CHRIS HEADER GI PANEL BACTERIA Normal T [facility] Comment on above: Performed By: #### B LDCX2 #### [facility] [address] [address] [address] Lisa HIRSCH ECOLI GI PANEL DIARRHEAGEN IC E.COLI / SHIGELLA Normal [facility] Comment on above: Performed By: #### B LDCX2 #### [facility] [address] [place] [address] Dr. Lisa HIRSCH INFO SEE BELOW Normal [facility] Comment on above: Result Comment: EAEC - Enteroaggregative E. Coli EPEC- Enteropathogenic E. Coli ETEC- Enterotoxigenic E. Coli lt/st STEC- Shigella-like toxin-producing E. Coli stx1/stx2 EIEC- Shigella/Enteroinvasive E. Coli Performed By: #### B LDCX2 #### [facility] [address] [place] [address] Dr. Lisa HIRSCH PARASITES GI PANEL PARASITES Normal [facility] Comment on above: Performed By: #### B LDCX2 #### [facility] [address] [place] [address] Dr. Lisa HIRSCH VIRUS GI PANEL VIRUSES Normal [facility] Comment on above: Performed By: #### B LDCX2 #### [facility] [address] [place] [address] Dr. Lisa Martinez Norovirus GI/GII Not detected Normal NOT DETECTED [facility] Comment on above: Performed By: #### B LDCX2 #### [facility] [address] [address] [address] Lisa Martinez P. Shigelloides Not detected Normal NOT DETECTED [facility] Comment on above: Performed By: #### B LDCX2 #### [facility] [address] [place] [address] Dr. Lisa Martinez Rotavirus A Not detected Normal NOT DETECTED [facility] Comment on above: Performed By: #### B LDCX2 #### [facility] [address] [place] [address] Dr. Lisa Martinez Salmonella Not detected Normal NOT DETECTED [facility] Comment on above: Performed By: #### B LDCX2 #### [facility] [address] [place] [address] Dr. Lisa Martinez Sapovirus Not detected Normal NOT DETECTED [facility] Comment on above: Performed By: #### B LDCX2 #### [facility] [address] [address] [address] Lisa Martinez STEC Not detected Normal NOT DETECTED [facility] Comment on above: Performed By: #### B LDCX2 #### [facility] [address] [place] [address] Dr. Lisa Martinez Vibrio Not detected Normal NOT DETECTED [facility] Comment on above: Performed By: #### B LDCX2 #### [facility] [address] [place] [address] Dr. Lisa Martinez Vibrio Cholera Not detected Normal NOT DETECTED [facility] Comment on above: Performed By: #### B LDCX2 #### [facility] [address] [place] [address] Dr. Lisa Martinez Y. Enterocolitica Not detected Normal NOT DETECTED [facility] Comment on above: Performed By: #### B LDCX2 #### [facility] [address] [place] [address] Dr. Lisa Martinez MAGNESIUMon 05-01-2022 Magnesium [Mass/Vol] 2.0 mg/dL Normal 1.8-2.4 [facility] Comment on above: Performed By: #### M G ####[facility] [address] [address]Dr. Lisa Martinez POINT OF CARE GLUCOSEon 04-09 Glucose [Mass/Vol] 184 mg/dL Critically high 74-106 [facility] Comment on above: Performed By: #### U RCX #### [facility] [address] [place] [address] Dr. Lisa Martinez Glucose [Mass/Vol] 137 mg/dL Critically high 74-106 [facility] Comment on above: Result Comment: Foll ow Protocol Performed By: #### C BC #### [facility] [address] [address] [address] Lisa Martinez Glucose [Mass/Vol] 170 mg/dL Critically high 74-106 T [facility] Comment on above: Result Comment: Foll ow Protocol Performed By: #### P OCGLUC ####[facility] [address] [address]Dr. Lisa Martinez PROF 14(COMP METB)on 022 Albumin [Mass/Vol] 3.0 g/dL Critically low 3.4-5.0 [facility] Comment on above: Performed By: #### C MP ####[facility] [address] [address]Dr. Lisa Martinez Albumin/Globulin [Mass ratio] 0.6 {ratio} Normal [facility] Comment on above: Performed By: #### C MP ####[facility] [address] [place], [place] [address]Dr. Lisa Martinez ALP [Catalytic activity/Vol] 101 U/L Normal 46-116 [facility] Comment on above: Performed By: #### C MP ####[facility] [address] [address]Dr. Lisa Martinez ALT [Catalytic activity/Vol] 16 U/L Normal 14-59 [facility] Comment on above: Performed By: #### C MP ####[facility] [address] [place], [place] [address]Dr. Lisa Martinez Anion gap [Moles/Vol] 9.7 mmol/L Normal [facility] Comment on above: Performed By: #### C MP ####[facility] [address] [place], [place] [address]Dr. Lisa Martinez AST [Catalytic activity/Vol] 13 U/L Critically low 15-37 [facility] Comment on above: Performed By: #### C MP ####[facility] [address] [place], [place] [address]Dr. Lisa Martinez Bilirubin [Mass/Vol] 0.5 mg/dL Normal 0.2-1.0 [facility] Comment on above: Performed By: #### C MP ####[facility] [address] [id number][address] Lisa Martinez Calcium [Mass/Vol] 8.8 mg/dL Normal 8.5-10.1 [facility] Comment on above: Performed By: #### C MP ####[facility] [address] [id number][address] Lisa Martinez Chloride [Moles/Vol] 104 mmol/L Normal 98-107 [facility] Comment on above: Performed By: #### C MP ####[facility] [address] [address]Dr. Lisa Martinez CO2 [Moles/Vol] 26.8 mmol/L Normal 21.0-32.0 [facility] Comment on above: Performed By: #### C MP ####[facility] [address] [address]Dr. Lisa Martinez Creatinine [Mass/Vol] 1.51 mg/dL Critically high 0.55-1.02 [facility] Comment on above: Performed By: #### C MP ####[facility] [address] [address]Dr. Lisa Martinez EGFR-AF ANDORRAN 40 mL/min/1.73m2 Critically low >=60 [facility] Comment on above: Performed By: #### C MP ####[facility] [address] [address]Dr. Lisa Martinez EGFR-NON AF ANDORRAN 33 mL/min/1.73m2 Critically low >=60 [facility] Comment on above: Performed By: #### C MP ####[facility] [address] [id number][address] Lisa Martinez Globulin (S) [Mass/Vol] 4.8 g/dL Normal [facility] Comment on above: Performed By: #### C MP ####[facility] [address] [id number]. Lisa Juan Glucose [Mass/Vol] 177 mg/dL Critically high 74-106 [facility] Comment on above: Performed By: #### C MP ####[facility] [address] [address]Dr. Lisa Martinez Potassium [Moles/Vol] 4.5 mmol/L Normal 3.5-5.1 [facility] Comment on above: Performed By: #### C MP ####[facility] [address] [address]DrIngrid Martinez Protein [Mass/Vol] 7.8 g/dL Normal 6.4-8.2 [facility] Comment on above: Performed By: #### C MP ####[facility] [address] [id number]. Lisa Martinez Sodium [Moles/Vol] 136 mmol/L Normal 136-145 [facility] Comment on above: Performed By: #### C MP ####[facility] [address] [address]DrIngrid Martinez Urea nitrogen [Mass/Vol] 28.0 mg/dL Critically high 7.0-18.0 [facility] Comment on above: Performed By: #### C MP ####[facility] [address] [id number]. Lisa Martinez Urea nitrogen/Creatinin e [Mass ratio] 18.5 mg/mg Normal [facility] Comment on above: Performed By: #### C MP ####[facility] [address] [id number]. Lisa Martinez BNPon 04-30-2022 Natriuretic peptide B (Bld) [Mass/Vol] 1752.0 pg/mL Normal <=1,800.0 [facility] Comment on above: Performed By: #### B FISH HATCHERY ASSISTANT, BMP #### [facility] [address] [place], [place] [address] Dr. Lisa Maritnez CBC AUTO DIFFon 04-30-2022 BASO # 0.1 103/ul Normal 0.0-0.1 [facility] Comment on above: Performed By: #### C BC ####[facility] [address] [place] [id number] Martinez Basophils/100 WBC (Bld) 0.6 % Normal 0.2-2.0 [facility] Comment on above: Performed By: #### C BC ####[facility] [address] [place] [address]Dr. Lisa Martinez EO # 0.1 103/ul Normal 0.0-0.7 [facility] Comment on above: Performed By: #### C BC ####[facility] [address] [place] [address]Dr. Lisa Juan Eosinophils/100 WBC (Bld) 1.2 % Normal 0.9-7.0 [facility] Comment on above: Performed By: #### C BC ####[facility] [address] [place], [place] [address]Dr. Lisa Martinez Erythrocyte distribution width (RBC) [Ratio] 13.2 % Normal 11.0-15.0 [facility] Comment on above: Performed By: #### C BC ####[facility] Earuubig[address] [place], [place] [address]Dr. Lisa Martinez Hematocrit (Bld) [Volume fraction] 43.4 % Normal 36.0-48.0 [facility] Comment on above: Performed By: #### C BC ####[facility] I[address] [place], [place] [address]Dr. Lisa Martinez Hemoglobin (Bld) [Mass/Vol] 14.2 g/dL Normal 12.0-16.0 [facility] Comment on above: Performed By: #### C BC ####[facility] It[address] [place], [place] [address]Dr. Lisa Martinez IG # 0.13 10e3/ul Critically high 0.00-0.03 [facility] Comment on above: Performed By: #### C BC ####[facility] [address] [place], [place] [address]Dr. Lisa Martinez IG % 1.6 % Critically high 0.0-0.5 [facility] Comment on above: Performed By: #### C BC ####[facility] Ebvkot[address] [place], [place] [address]Dr. Lisa Martinez LYMPH # 0.8 103/ul Critically low 1.2-3.[address] [facility] Comment on above: Performed By: #### C BC ####[facility] [address] [place] [address]Dr. Lisa Martinez Lymphocytes/100 WBC (Bld) 9.8 % Critically low 20.5-60.0 [facility] Comment on above: Performed By: #### C BC ####[facility] [address]fr[address] [place] [address]Dr. Lisa Martinez MANUAL DIFF REQ NO Normal [facility] Comment on above: Performed By: #### C BC ####[facility] [address] [place] [address]Dr. Lisa Martinez MCH (RBC) [Entitic mass] 30.0 pg Normal 26.7-34.0 [facility] Comment on above: Performed By: #### C BC ####[facility] [address] [place], [place] [address]Dr. Lisa Martinez MCHC (RBC) [Mass/Vol] 32.7 g/dL Normal 29.9-35.2 [facility] Comment on above: Performed By: #### C BC ####[facility] Crom[address]shrix[address] [place], [place] [address]Dr. Lisa Martinez MCV (RBC) [Entitic vol] 91.8 fL Normal 81.0-99.0 [facility] Comment on above: Performed By: #### C BC ####[facility] B[address] [place], [place] [address]Dr. Lisa Martinez MONO # 1.2 103/ul Critically high 0.3-0.8 [facility] Comment on above: Performed By: #### C BC ####[facility] Yiwin[address] [place], [place] [address]Dr. Lisa Martinez Monocytes/100 WBC (Bld) 15.0 % Critically high 1.7-12.0 [facility] Comment on above: Performed By: #### C BC ####[facility] [address] [place], [place] [address]Dr. Lisa Martinez NEUT # 5.8 103/ul Normal 1.4-6.5 [facility] Comment on above: Performed By: #### C BC ####[facility] [address] [place] [id number]. Lisa Martinez Neutrophils/100 WBC (Bld) 71.8 % Normal 43.0-75.0 [facility] Comment on above: Performed By: #### C BC ####[facility] [address]txlc[address] [place] [id number]. Lisa Martinez Platelet mean volume (Bld) [Entitic vol] 10.5 fL Normal 9.5-13.5 [facility] Comment on above: Performed By: #### C BC ####[facility] [address] [place] [id number]. Lisa Martinez PLT 242 103/ul Normal 150-450 [facility] Comment on above: Performed By: #### C BC ####[facility] [address]clfs[address] [place] [id number]. Lisa Martinez RBC 4.73 106/ul Normal 4.20-5.40 [facility] Comment on above: Performed By: #### C BC ####[facility] [address]uzrb[address] [place] [id number]. Lisa Martinez WBC 8.1 103/ul Normal 4.0-11.0 [facility] Comment on above: Performed By: #### C BC ####[facility] Y[address] [place] [id number]. Lisa Martinez CT HEAD WO CONon 04-30-2022 [...] MEENA HAWKINS Date: 2022-04-30 07:46 Normal [facility] CULTURE BLOODon 04-30-2022 Microscopic examination of blood, culture Culture Observations: NO GROWTH AT 5 DAYS. Normal [facility] Comment on above: Performed By: #### B LDCX2 #### [facility] [address] [place] [address] [address] Lisa Martinez Microscopic examination of blood, culture Culture Observations: NO GROWTH AT 5 DAYS. Normal [facility] Comment on above: Performed By: #### B LDCX1 ####[facility] [address] [place] [address]Dr. Lisa Martinez CULTURE URINEon 04-30-2022 CULTURE URINE Culture Observations : No growth Normal [facility] Comment on above: Performed By: #### U RCX ####[facility] [address]jab[address] [place] [address]DrIngrid Martinez Covid-19 PCR (CVDTBH)on 04-09 SARS-CoV-2 (COVID-19) RNA RACIEL+probe Ql (Unsp spec) Detected Critically abnormal NOT DETECTED [facility] Comment on above: Result Comment: This test is not yet approved or cleared by the [place] FDA. When there are no FDA-approved or cleared tests available, and other criteria are met, FDA can make tests available under an emergency access mechanism called an Emergency Use Authorization (EUA). The EUA for this test is supported by the [place] of Health and Human Service's declaration that [...] used). Performed By: #### C VDTBH #### [facility] [address] [place] [address] [address] Lisa Martinez ER URINE PROFILEon 2 Bilirubin Ql (U) Negative Normal NEGATIVE [facility] Comment on above: Performed By: #### C BC #### [facility] [address] [place] [address] Dr. Lisa Martinez Clarity (U) CLEAR Normal CLEAR [facility] Comment on above: Performed By: #### C BC #### [facility] [address] [place] [address] Dr. Lisa Martinez Color (U) LT. YELLOW Normal YELLOW [facility] Comment on above: Performed By: #### C BC #### [facility] [address] [place] [address] Dr. Lisa SMITH A micrscopic examination will be performed if indicated. Normal [facility] Comment on above: Performed By: #### C BC #### [facility] [address] [place] [address] Dr. Lisa Martinez Glucose Ql (U) Negative Normal NEGATIVE [facility] Comment on above: Performed By: #### C BC #### [facility] [address] [place] [address] Dr. Lisa Martinez Hemoglobin Ql (U) Negative Normal NEGATIVE [facility] Comment on above: Performed By: #### C BC #### [facility] [address] [place] [address] Dr. Lisa Martinez Ketones Ql (U) Negative Normal NEGATIVE [facility] Comment on above: Performed By: #### C BC #### [facility] [address] [place] [address] Dr. Lisa Martinez LEUKOCYTES Negative Normal NEGATIVE [facility] Comment on above: Performed By: #### C BC #### [facility] [address] [place] [address] Dr. Lisa Martinez Nitrite Ql (U) Positive Abnormal NEGATIVE [facility] Comment on above: Performed By: #### C BC #### [facility] [address] [place] [address] Dr. Lisa Martinez pH (U) 5.5 [pH] Normal 5-9 [facility] Comment on above: Performed By: #### C BC #### [facility] [address] [place] [address] [address] Lisa Martinez SPEC GRAVITY 1.030 Abnormal 1.005-<=1.025 [facility] Comment on above: Performed By: #### C BC #### [facility] [address] [place] [address] [address] Lisa Martinez UA PROTEIN Negative Normal NEGATIVE/ TRACE [facility] Comment on above: Performed By: #### C BC #### [facility] [address] [place] [address] [address] Lisa Martinez UR MICRO IND INDICATED Normal [facility] Comment on above: Performed By: #### C BC #### [facility] [address] [place] [address] Dr. Lisa Martinez Urobilinogen Qn (U) 0.2 {Mike'U}/dL Normal 0.2 - 1.0 [facility] Comment on above: Performed By: #### C BC #### [facility] [address] [place] [address] Dr. Lisa Martinez GLYCOHEMOGLOBIN A1Con 2021 ADA RECOMMENDATION SEE BELOW Normal [facility] Comment on above: Result Comment: ADA RECOMMENDED LIMIT 4.0 - 6.0 ADA THERAPEUTIC TARGET < 7.0 ACTION SUGGESTED > 7.0 Performed By: #### B FISH HATCHERY ASSISTANT, BMP #### [facility] [address] [place] [address] Dr. Lisa Martinez Glucose [Mass/Vol] 154 mg/dL Normal [facility] Comment on above: Performed By: #### B FISH HATCHERY ASSISTANT, BMP #### [facility] [address] [place] [address] Dr. Lisa Martinez HbA1c (Bld) [Mass fraction] 7.0 % Critically high 4.5-6.2 [facility] Comment on above: Performed By: #### B FISH HATCHERY ASSISTANT, BMP #### [facility] [address] [place] [address] Dr. Lisa Martinez LACTATE/LACTIC ACIDon 2021 Lactate [Moles/Vol] 1.1 mmol/L Normal 0.4-1.9 [facility] Comment on above: Performed By: #### L ACT ####[facility] [address] [place] [address]Dr. Lisa Martinez LIPASEon 04-30-2022 Lipase [Catalytic activity/Vol] 53.0 U/L Critically low 73.0-393.0 [facility] Comment on above: Performed By: #### B FISH HATCHERY ASSISTANT, BMP #### [facility] [address] [place] [address] [address] Lisa Martinez LIVER PROFILEon 04-30-2022 Albumin [Mass/Vol] 3.4 g/dL Normal 3.4-5.0 [facility] Comment on above: Performed By: #### U RCX #### [facility] [address] [place] [address] Dr. Lisa Martinez Albumin/Globulin [Mass ratio] 0.7 {ratio} Normal [facility] Comment on above: Performed By: #### U RCX #### [facility] [address] [place] [address] Dr. Lisa Martinez ALP [Catalytic activity/Vol] 110 U/L Normal 46-116 [facility] Comment on above: Performed By: #### U RCX #### [facility] [address] [place] [address] Dr. Lisa Martinez ALT [Catalytic activity/Vol] 20 U/L Normal 14-59 [facility] Comment on above: Performed By: #### U RCX #### [facility] [address] [place] [address] Dr. Lisa Martinez AST [Catalytic activity/Vol] 16 U/L Normal 15-37 [facility] Comment on above: Performed By: #### U RCX #### [facility] [address] [place] [address] [address] Lisa Martinez BILI, CONJUGATED 0.2 mg/dL Normal 0.0-0.2 [facility] Comment on above: Performed By: #### U RCX #### [facility] [address] [place] [address] Dr. Lisa Martinez Bilirubin [Mass/Vol] 0.7 mg/dL Normal 0.2-1.0 [facility] Comment on above: Performed By: #### U RCX #### [facility] [address] [place] [address] Dr. Lisa Martinez Globulin (S) [Mass/Vol] 5.0 g/dL Normal [facility] Comment on above: Performed By: #### U RCX #### [facility] [address] [place] [address] Dr. Lisa Martinez Protein [Mass/Vol] 8.4 g/dL Critically high 6.4-8.2 [facility] Comment on above: Performed By: #### U RCX #### [facility] [address] [place] [address] Dr. Lisa Martinez POINT OF CARE GLUCOSEon 04-09 Glucose [Mass/Vol] 203 mg/dL Critically high 74-106 [facility] Comment on above: Performed By: #### B FISH HATCHERY ASSISTANT, BMP #### [facility] [address] [place] [address] Dr. Lisa Martinez Glucose [Mass/Vol] 174 mg/dL Critically high -106 [facility] Comment on above: Performed By: #### C BC #### [facility] [address] [place] [address] Dr. Lisa Martinez Glucose [Mass/Vol] 149 mg/dL Critically high -106 [facility] Comment on above: Performed By: #### B LDCX2 #### [facility] [address] [place] [address] Dr. Lisa Martinez PROF CHEM 8 (BAS METB)on Anion gap [Moles/Vol] 15.3 mmol/L Normal [facility] Comment on above: Performed By: #### C BC #### [facility] [address] [place] [address] Dr. Lisa Martinez Calcium [Mass/Vol] 9.1 mg/dL Normal 8.5-10.1 [facility] Comment on above: Performed By: #### C BC #### [facility] [address] [place] [address] Dr. Lisa Martinez Chloride [Moles/Vol] 98 mmol/L Normal 98-107 [facility] Comment on above: Performed By: #### C BC #### [facility] [address] [place] [address] Dr. Lisa Martinez CO2 [Moles/Vol] 24.4 mmol/L Normal 21.0-32.0 [facility] Comment on above: Performed By: #### C BC #### [facility] [address] [place] [address] [address] Lisa Martinez Creatinine [Mass/Vol] 1.44 mg/dL Critically high 0.55-1.02 [facility] Comment on above: Performed By: #### C BC #### [facility] [address] [place] [address] Dr. Lisa Martinez EGFR-AF ANDORRAN 42 mL/min/1.73m2 Critically low >=60 [facility] Comment on above: Performed By: #### C BC #### [facility] [address] [place] [address] Dr. Lisa Martinez EGFR-NON AF ANDORRAN 35 mL/min/1.73m2 Critically low >=60 [facility] Comment on above: Performed By: #### C BC #### [facility] [address] [place] [address] Dr. Lisa Martinez Glucose [Mass/Vol] 225 mg/dL Critically high 74-106 [facility] Comment on above: Performed By: #### C BC #### [facility] [address] [place] [address] Dr. Lisa Martinez Potassium [Moles/Vol] 4.7 mmol/L Normal 3.5-5.1 [facility] Comment on above: Performed By: #### C BC #### [facility] [address] [place] [address] Dr. Lisa Martinez Sodium [Moles/Vol] 133 mmol/L Critically low 136-145 [facility] Comment on above: Performed By: #### C BC #### [facility] [address] [place] [address] Dr. Lisa Martinez Urea nitrogen [Mass/Vol] 37.0 mg/dL Critically high 7.0-18.0 [facility] Comment on above: Performed By: #### C BC #### [facility] [address] [place] [address] Dr. Lisa Martinez Urea nitrogen/Creatinin e [Mass ratio] 25.7 mg/mg Normal [facility] Comment on above: Performed By: #### C BC #### [facility] [address] [place] [address] Dr. Lisa Martinez PROTIMEon 04-30-2022 INR Coag (PPP) [Relative time] 1.02 {INR} Normal [facility] Comment on above: Performed By: #### K U #### [facility] [address] [place] [address] Dr. Lisa Martinez INR GUIDELINES SEE BELOW Normal [facility] Comment on above: Result Comment: ANTONY RED INR: 2.0 - 3.0 CONDITIONS NOT LISTED BELOW 2.5 - 3.5 FOR PROSTHETIC HEART VALVE REPLACEMENT 2.5 - 3.5 RECURRENT THROMBOSIS Performed By: #### K U #### [facility] [address] [place] [address] Dr. Lisa Martinez PT Coag (PPP) [Time] 11.0 s Normal 9.0-11.6 [facility] Comment on above: Performed By: #### K U #### [facility] [address] [place] [address] Dr. Lisa Martinez PTTon 04-30-2022 aPTT Coag (Bld) [Time] 27.5 s Normal 22.3-36.2 [facility] Comment on above: Performed By: #### K U #### [facility] [address] [place] [address] Dr. Lisa Martinez TROPONIN, HIGH SENSITIVITYon 04-30-2022 HSTROP 20.0 pg/mL Normal 4.0-51.3 [facility] Comment on above: Result Comment: CUT- OFF POINTS HAVE BEEN ESTABLISHED BASED ON THE FOURTH UNIVERSAL DEFINITIONS OF MYOCARDIAL INFARCTION. THE UPPER REFERENCE LIMIT (URL) OF TROPONIN, DEFINED THE 99TH PERCENTILE OF cTnI DISTRIBUTION IN A REFERENCE POPULATION, HAS BEEN CONFIRMED THE DECISION THRESHOLD FOR SC DIAGNOSIS. Performed By: #### U RCX #### [facility] [address] [place] [address] Dr. Lisa Martinez URINE MICROSCOPIC ONLYon BACTERIA MODERATE Abnormal NONE SEEN [facility] Comment on above: Performed By: #### K U #### [facility] [address] [place] [address] Dr. Lisa Martinez Bacteria identified Cx Nom (U) INDICATED Normal [facility] Comment on above: Performed By: #### K U #### [facility] [address] [place] [address] Dr. Lisa Martinez CAST NONE SEEN Normal NONE SEEN [facility] Comment on above: Performed By: #### K U #### [facility] [address] [place] [address] Dr. Lisa Martinez Crystals LM Nom (Urine sed) NONE SEEN Normal NONE SEEN [facility] Comment on above: Performed By: #### K U #### [facility] [address] [place] [address] Dr. Lisa Martinez Epithelial cells LM Ql (Urine sed) RARE Normal NONE SEEN /RARE [facility] Comment on above: Performed By: #### K U #### [facility] [address] [place] [address] Dr. Lisa Martinez MUCOUS NONE SEEN Normal NONE SEEN [facility] Comment on above: Performed By: #### K U #### [facility] [address] [place] [address] Dr. Lisa Martinez RBC NONE SEEN Abnormal 0-2 [facility] Comment on above: Performed By: #### K U #### [facility] [address] [place] [address] Dr. Lisa Martinez WBC 0-2 Abnormal NONE SEEN [facility] Comment on above: Performed By: #### K U #### [facility] [address] [place] [address] Dr. Lisa Martinez XR CHEST 1 Von [...] by: MEENA HAWKINS Date: 2022-04-30 07:42 Normal [facility] FREE T3on 04-12-2022 FREE T3 2.10 pg/mlL Critically low 2.18-3.98 [facility] Comment on above: Performed By: #### C VDTBH #### [facility] [address] [place] [address] Dr. Lisa Martinez FREE T4on 04-12-2022 Free T4 [Mass/Vol] 0.88 ng/dL Normal 0.76-1.46 [facility] Comment on above: Performed By: #### B LDCX2 #### [facility] [address] [place] [address] Dr. Lisa Martinez TSHon 04-12-2022 TSH 5.007 uIU/mL Critically high 0.358-3.740 [facility] Comment on above: Performed By: #### C VDTBH #### [facility] [address] [place] [address] Dr. Lisa Martinez US THYROIDon 04-12-2022 US [...] MEENA HAWKINS Date: 2022-04-12 13:20 Normal [facility] CBC AUTO DIFFon 02-12-2022 BASO # 0.1 103/ul Normal 0.0-0.1 [facility] Comment on above: Performed By: #### K U #### [facility] [address] [address] [address] Lisa Martinez Basophils/100 WBC (Bld) 0.7 % Normal 0.2-2.0 [facility] Comment on above: Performed By: #### K U #### [facility] [address] [place] [address] Dr. Lisa Martinez EO # 0.3 103/ul Normal 0.0-0.7 [facility] Comment on above: Performed By: #### K U #### [facility] [address] [place] [address] Dr. Lisa Martinez Eosinophils/100 WBC (Bld) 3.3 % Normal 0.9-7.0 [facility] Comment on above: Performed By: #### K U #### [facility] [address] [place] [address] Dr. Lisa Martinez Erythrocyte distribution width (RBC) [Ratio] 13.0 % Normal 11.0-15.0 [facility] Comment on above: Performed By: #### K U #### [facility] [address] [place] [address] Dr. Lisa Martinez Hematocrit (Bld) [Volume fraction] 34.6 % Critically low 36.0-48.0 [facility] Comment on above: Performed By: #### K U #### [facility] [address] [place] [address] Dr. Lisa Martinez Hemoglobin (Bld) [Mass/Vol] 11.1 g/dL Critically low 12.0-16.0 [facility] Comment on above: Performed By: #### K U #### [facility] [address] [place] [address] Dr. Lisa Martinez IG # 0.04 10e3/ul Critically high 0.00-0.03 [facility] Comment on above: Performed By: #### K U #### [facility] [address] [place] [address] Dr. Lisa Martinez IG % 0.4 % Normal 0.0-0.5 [facility] Comment on above: Performed By: #### K U #### [facility] [address] [address] [address] Lisa Martinez LYMPH # 1.0 103/ul Critically low 1.2-3.[address] [facility] Comment on above: Performed By: #### K U #### [facility] [address] [place] [address] Dr. Lisa Martinez Lymphocytes/100 WBC (Bld) 10.6 % Critically low 20.5-60.0 [facility] Comment on above: Performed By: #### K U #### [facility] [address] [place] [address] Dr. Lisa Martinez MANUAL DIFF REQ NO Normal [facility] Comment on above: Performed By: #### K U #### [facility] [address] [place] [address] Dr. Lisa Martinez MCH (RBC) [Entitic mass] 31.3 pg Normal 26.7-34.0 [facility] Comment on above: Performed By: #### K U #### [facility] [address] [place] [address] Dr. Lisa Martinez MCHC (RBC) [Mass/Vol] 32.1 g/dL Normal 29.9-35.2 [facility] Comment on above: Performed By: #### K U #### [facility] [address] [place] [address] Dr. Lisa Martinez MCV (RBC) [Entitic vol] 97.5 fL Normal 81.0-99.0 [facility] Comment on above: Performed By: #### K U #### [facility] [address] [place] [address] Dr. Lisa Martinez MONO # 0.9 103/ul Critically high 0.3-0.8 The [facility] Comment on above: Performed By: #### K U #### [facility] [address] [place] [address] Dr. Lisa Martinez Monocytes/100 WBC (Bld) 9.5 % Normal 1.7-12.0 [facility] Comment on above: Performed By: #### K U #### [facility] [address] [address] [address] Lisa Martinez NEUT # 6.9 103/ul Critically high 1.4-6.5 [facility] Comment on above: Performed By: #### K U #### [facility] [address] [place] [address] Dr. Lisa Martinez Neutrophils/100 WBC (Bld) 75.5 % Critically high 43.0-75.0 [facility] Comment on above: Performed By: #### K U #### [facility] [address] [place] [address] Dr. Lisa Martinez Platelet mean volume (Bld) [Entitic vol] 9.9 fL Normal 9.5-13.5 [facility] Comment on above: Performed By: #### K U #### [facility] [address] [place] [address] Dr. Lisa Martinez PLT 255 103/ul Normal 150-450 [facility] Comment on above: Performed By: #### K U #### [facility] [address] [place] [address] Dr. Lisa Martinez RBC 3.55 106/ul Critically low 4.20-5.40 [facility] Comment on above: Performed By: #### K U #### [facility] [address] [address] [address] Lisa Martinez WBC 9.2 103/ul Normal 4.0-11.0 [facility] Comment on above: Performed By: #### K U #### [facility] [address] [place] [address] Dr. Lisa Martinez CRPon 02-12-2022 CRP 0.7 mg/dL Normal <=1.0 [facility] Comment on above: Performed By: #### B FISH HATCHERY ASSISTANT, BMP #### [facility] [address] [address] [address] Lisa Martinez SED RATE WESTERGRENon 2021 SED RATE 56 mm/hr Critically high <=30 [facility] Comment on above: Performed By: #### S EDR ####[facility] [address] [address]Dr. Lisa Martinez URIC ACID SERUMon 02-12-2022 Urate [Mass/Vol] 9.2 mg/dL Critically high 2.6-6.0 [facility] Comment on above: Performed By: #### B FISH HATCHERY ASSISTANT, BMP #### [facility] [address] [place] [address] Dr. Lisa Martinez XR FOOT LT MIN [...] TYLER MENENDEZ Date: 2022-02-12 13:01 Normal [facility] HEMOGRAM AND PLATELon 2021 Hematocrit (Bld) [Volume fraction] 35.7 % Critically low 36.0-48.0 [facility] Comment on above: Performed By: #### U RCX #### [facility] [address] [place] [address] Dr. Lisa Martinez Hemoglobin (Bld) [Mass/Vol] 11.7 g/dL Critically low 12.0-16.0 [facility] Comment on above: Performed By: #### U RCX #### [facility] [address] [place] [address] Dr. Lisa Martinez MCH (RBC) [Entitic mass] 31.5 pg Normal 26.7-34.0 [facility] Comment on above: Performed By: #### U RCX #### [facility] [address] [address] [address] Lisa Martinez MCHC (RBC) [Mass/Vol] 32.8 g/dL Normal 29.9-35.2 [facility] Comment on above: Performed By: #### U RCX #### [facility] [address] [address] [address] Lisa Martinez MCV (RBC) [Entitic vol] 96.2 fL Normal 81.0-99.0 [facility] Comment on above: Performed By: #### U RCX #### [facility] [address] [address] [address] Lisa Martinez PLT 268 103/ul Normal 150-450 [facility] Comment on above: Performed By: #### U RCX #### [facility] [address] [address] [address] Lisa Martinez RBC 3.71 106/ul Critically low 4.20-5.40 [facility] Comment on above: Performed By: #### U RCX #### [facility] [address] [address] [address] Lisa Martinez WBC 9.3 103/ul Normal 4.0-11.0 [facility] Comment on above: Performed By: #### U RCX #### [facility] [address] [place] [address] Dr. Lisa Martinez PROF CHEM 8 (BAS METB)on Anion gap [Moles/Vol] 11.2 mmol/L Normal [facility] Comment on above: Performed By: #### C VDTBH #### [facility] [address] [place] [address] Dr. Lisa Martinez Calcium [Mass/Vol] 9.1 mg/dL Normal 8.5-10.1 The [facility] Comment on above: Performed By: #### C VDTBH #### [facility] [address] [place] [address] Dr. Lisa Martinez Chloride [Moles/Vol] 104 mmol/L Normal 98-107 [facility] Comment on above: Performed By: #### C VDTBH #### [facility] [address] [address] [address] Lisa Martinez CO2 [Moles/Vol] 30.6 mmol/L Normal 21.0-32.0 [facility] Comment on above: Performed By: #### C VDTBH #### [facility] [address] [address] [address] Lisa Martinez Creatinine [Mass/Vol] 1.64 mg/dL Critically high 0.55-1.02 [facility] Comment on above: Performed By: #### C VDTBH #### [facility] [address] [address] [address] Lisa Martinez EGFR-AF ANDORRAN 36 mL/min/1.73m2 Critically low >=60 [facility] Comment on above: Performed By: #### C VDTBH #### [facility] [address] [place] [address] Dr. Lisa Martinez EGFR-NON AF ANDORRAN 30 mL/min/1.73m2 Critically low >=60 [facility] Comment on above: Performed By: #### C VDTBH #### [facility] [address] [address] [address] Lisa Martinez Glucose [Mass/Vol] 61 mg/dL Critically low 74-106 [facility] Comment on above: Performed By: #### C VDTBH #### [facility] [address] [address] [address] Lisa Martinez Potassium [Moles/Vol] 4.8 mmol/L Normal 3.5-5.1 [facility] Comment on above: Performed By: #### C VDTBH #### [facility] [address] [address] [address] Lisa Martinez Sodium [Moles/Vol] 141 mmol/L Normal 136-145 [facility] Comment on above: Performed By: #### C VDTBH #### [facility] [address] [address] [address] Lisa Martinez Urea nitrogen [Mass/Vol] 34.0 mg/dL Critically high 7.0-18.0 [facility] Comment on above: Performed By: #### C VDTBH #### [facility] [address] [place], [place] [address] Dr. Lisa Martinez Urea nitrogen/Creatinin e [Mass ratio] 20.7 mg/mg Normal [facility] Comment on above: Performed By: #### C VDTBH #### [facility] [address] [place], [place] [address] Dr. Lisa Martinez Cardiovascular Lab Reporton 12-21-2021 Cardiovascular Lab Report [facility] Patient Name: Jenni Villegas [facility] MR #: [id number] Physician: Josefina Weston of [facility] Service Date: 12/20/2021 Division of Birthdate: 1940 Cardiology Room #: [facility]ovascular Services [address] [address] Cardiovascular Laboratory Report INDICATION: The patient is [...] the consent. She was brought to the research laboratory manager in a fasting state. The right neck area was prepped and draped in usual fashion. Micropuncture technique and ultrasound guidance were used for access in the right internal jugular vein. A 6-Ghanaian x 11 cm sheath was placed. A 6-Ghanaian Becker catheter was used for right heart [...] Chao M.D. Date Trans: 12/21/2021 06:38 A/kali [id number] cc: Jasvir León M.D. [address] [address] Normal [facility]on [facility]-07 SARS-CoV-2 (COVID-19) RNA RACIEL+probe Ql (Unsp spec) Not detected Normal NOT DETECTED The [facility] Comment on above: Result Comment: This test is not yet approved or cleared by the [place] FDA. When there are no FDA-approved or cleared tests available, and other criteria are met, FDA can make tests available under an emergency access mechanism called an Emergency Use Authorization (EUA). The EUA for this test is supported by the [place] of Health and Human Service's (HHS's) declaration [...] SARS-CoV-2. Performed By: #### K U #### [facility] [address] [address] [address] Lisa Martinez HEMOGRAM AND PLATELon 2021 Hematocrit (Bld) [Volume fraction] 37.7 % Normal 36.0-48.0 [facility] Comment on above: Performed By: #### H H ####[facility] [address] [address]DrIngrid Martinez Hemoglobin (Bld) [Mass/Vol] 11.8 g/dL Critically low 12.0-16.0 [facility] Comment on above: Performed By: #### H H ####[facility] [address] [address]DrIngrid Martinez MCH (RBC) [Entitic mass] 30.7 pg Normal 26.7-34.0 [facility] Comment on above: Performed By: #### H H ####[facility] [address] [address]DrIngrid Martinez MCHC (RBC) [Mass/Vol] 31.3 g/dL Normal 29.9-35.2 [facility] Comment on above: Performed By: #### H H ####[facility] [address] [address]DrIngrid Martinez MCV (RBC) [Entitic vol] 98.2 fL Normal 81.0-99.0 [facility] Comment on above: Performed By: #### H H ####[facility] [address] [address]DrIngrid Martinez PLT 238 103/ul Normal 150-450 [facility] Comment on above: Performed By: #### H H ####[facility] [address] [address]DrIngrid Martinez RBC 3.84 106/ul Critically low 4.20-5.40 [facility] Comment on above: Performed By: #### H H ####[facility] [address] [address]Dr. Lisa Martinez WBC 8.6 103/ul Normal 4.0-11.0 [facility] Comment on above: Performed By: #### H H ####[facility] [address] [address]Dr. Lisa Martinez PROF CHEM 8 (BAS METB)on Anion gap [Moles/Vol] 13.7 mmol/L Normal [facility] Comment on above: Performed By: #### B MP ####[facility] [address] [address]Dr. Lisa Mratinez Calcium [Mass/Vol] 9.1 mg/dL Normal 8.5-10.1 [facility] Comment on above: Performed By: #### B MP ####[facility] [address] [place], [place] [address]Dr. Lisa Martinez Chloride [Moles/Vol] 107 mmol/L Normal 98-107 [facility] Comment on above: Performed By: #### B MP ####[facility] [address] [place], [place] [address]Dr. Fabianachapis Martinez CO2 [Moles/Vol] 26.9 mmol/L Normal 21.0-32.0 [facility] Comment on above: Performed By: #### B MP ####[facility] [address] [address]Dr. Lisa Martinez Creatinine [Mass/Vol] 1.48 mg/dL Critically high 0.55-1.02 [facility] Comment on above: Performed By: #### B MP ####[facility] [address] [address]Dr. Lisa Martinez EGFR-AF ANDORRAN 41 mL/min/1.73m2 Critically low >=60 [facility] Comment on above: Performed By: #### B MP ####[facility] [address] [place], [place] [address]Dr. Lisa Martinez EGFR-NON AF ANDORRAN 34 mL/min/1.73m2 Critically low >=60 [facility] Comment on above: Performed By: #### B MP ####[facility] [address] [address]Dr. Lisa Martinez Glucose [Mass/Vol] 161 mg/dL Critically high 74-106 [facility] Comment on above: Performed By: #### B MP ####[facility] [address] [address]Dr. Lisa Martinez Potassium [Moles/Vol] 4.6 mmol/L Normal 3.5-5.1 [facility] Comment on above: Performed By: #### B MP ####[facility] [address] [address]Dr. Lisa Martinez Sodium [Moles/Vol] 143 mmol/L Normal 136-145 [facility] Comment on above: Performed By: #### B MP ####[facility] [address] [address]Dr. Lisa Martinez Urea nitrogen [Mass/Vol] 35.0 mg/dL Critically high 7.0-18.0 [facility] Comment on above: Performed By: #### B MP ####[facility] [address] [address]Dr. Lisa Martinez Urea nitrogen/Creatinin e [Mass ratio] 23.6 mg/mg Normal [facility] Comment on above: Performed By: #### B MP ####[facility] [address] [address]Dr. Lisa Martinez Comprehensive Metabolic Pane [facility] 08-17-2021 Albumin [Mass/Vol] 4.4 g/dL Normal 3.6-5.1 [facility] [employer] Comment on above: Performed By: #### C MP #### [facility] [address], [place] [id number] Albumin/Globulin [Mass ratio] 1.4 {ratio} Normal 1.0-2.5 [facility] Comment on above: Performed By: #### C MP #### [facility] [address] [place] [id number] ALP [Catalytic activity/Vol] 89 U/L Normal 35-119 [facility] Comment on above: Performed By: #### C MP #### [facility] [address], [place] [id number] ALT [Catalytic activity/Vol] 13 U/L Normal 6-33 [facility] Comment on above: Result Comment: 06/08 Female reference range changed. Performed By: #### C MP #### [facility] [address], [place] [id number] Anion gap [Moles/Vol] 18 mmol/L Normal 12-20 [facility] Comment on above: Result Comment: Effe ctive 07/14/2019 reference range changed. Performed By: #### C MP #### [facility] [address], [place] [id number] AST [Catalytic activity/Vol] 20 U/L Normal 9-34 [facility] Comment on above: Performed By: #### C MP #### [facility] [address], [place] [id number] Bilirubin [Mass/Vol] 0.34 mg/dL Normal 0.30-1.20 [facility] Comment on above: Performed By: #### C MP #### [facility] [address], [place] [id number] BUN/CREA 28 Ratio High 6-22 [facility] Comment on above: Performed By: #### C MP #### [facility] [address], [place] [id number] Calcium [Mass/Vol] 9.8 mg/dL Normal 8.6-10.2 [facility] Comment on above: Performed By: #### C MP #### [facility] [address], [place] [id number] Chloride [Moles/Vol] 106 mmol/L Normal 98-107 [facility] Specialist Comment on above: Performed By: #### C MP #### [facility] [address], [place] [id number] CO2 [Moles/Vol] 23 mmol/L Normal 20-31 [facility] Comment on above: Performed By: #### C MP #### [facility] [address], [place] [id number] Creatinine [Mass/Vol] 1.1 mg/dL Normal 0.6-1.4 [facility] Comment on above: Performed By: #### C MP #### [facility] [address], [place] [id number] eGFRAA 59 mL/min/1.73m2 Low >60 [facility] Comment on above: Performed By: #### C MP #### [facility] [address], [place] [id number] eGFRNAA 49 mL/min/1.73m2 Low >60 [facility] Comment on above: Performed By: #### C MP #### [facility] [address], [place] [id number] Globulin (S) [Mass/Vol] 3.2 g/dL Normal 1.9-3.7 [facility] Comment on above: Performed By: #### C MP #### [facility] [address], [place] [id number] Glucose [Mass/Vol] 51 mg/dL Low 65-99 [facility] Comment on above: Result Comment: For FASTING Glucose --- ADA reference ranges: Normal 65-99 mg/dl Prediabetes 100-125 Diabetes >/= 126 Performed By: #### C MP #### [facility] [address], [place] [id number] Potassium [Moles/Vol] 4.5 mmol/L Normal 3.5-5.5 [facility] Comment on above: Performed By: #### C MP #### [facility] [address], [place] [id number] Protein [Mass/Vol] 7.6 g/dL Normal 6.1-8.1 [facility] Comment on above: Performed By: #### C MP #### [facility] [address], [place] [id number] Sodium [Moles/Vol] 143 mmol/L Normal 135-146 [facility] Comment on above: Performed By: #### C MP #### [facility] [address], [place] [id number] Urea nitrogen [Mass/Vol] 31 mg/dL High 7-25 [facility] Comment on above: Performed By: #### C MP #### [facility] [address], [place] [id number] Complete Blood Counton 08-03 Erythrocyte distribution width (RBC) [Ratio] 13.2 % Normal 11.0-15.0 [facility] Comment on above: Performed By: #### C BC, TSH, FT3, FT4, CMP #### [facility] [address], [place] [id number] Hematocrit (Bld) [Volume fraction] 36.6 % Normal 35.0-47.0 [facility] Comment on above: Performed By: #### C BC, TSH, FT3, FT4, CMP #### [facility] [address], [place] [id number] Hemoglobin (Bld) [Mass/Vol] 11.4 g/dL Low 11.6-15.5 [facility] Comment on above: Performed By: #### C BC, TSH, FT3, FT4, CMP #### [facility] [address], [place] [id number] MCH (RBC) [Entitic mass] 31.1 pg Normal 27.0-33.0 [facility] Comment on above: Performed By: #### C BC, TSH, FT3, FT4, CMP #### [facility] [address], [place] [id number] MCHC (RBC) [Mass/Vol] 31.1 g/dL Low 32.0-36.0 [facility] Comment on above: Performed By: #### C BC, TSH, FT3, FT4, CMP #### [facility] [address], [place] [id number] MCV (RBC) [Entitic vol] 100 fL Normal 80-100 [facility] Comment on above: Performed By: #### C BC, TSH, FT3, FT4, CMP #### [facility] [address], [place] [id number] Platelet mean volume (Bld) [Entitic vol] 10.10 fL Normal 7.50-12.50 [facility] Comment on above: Performed By: #### C BC, TSH, FT3, FT4, CMP #### [facility] [address], [place] [id number] Platelets (Bld) [#/Vol] 245 10*3/uL Normal 140-400 [facility] Specialist Comment on above: Performed By: #### C BC, TSH, FT3, FT4, CMP #### [facility] [address], [place] [id number] RBC (Bld) [#/Vol] 3.66 10*6/uL Low 3.90-5.20 [facility] Comment on above: Performed By: #### C BC, TSH, FT3, FT4, CMP #### [facility] [address], [place] [id number] RDW-SD 48.1 fL Normal 37.0-50.0 [facility] Comment on above: Performed By: #### C BC, TSH, FT3, FT4, CMP #### [facility] [address], [place] [id number] WBC (Bld) [#/Vol] 8.7 10*3/uL Normal 3.8-11.0 [facility] Comment on above: Performed By: #### C BC, TSH, FT3, FT4, CMP #### [facility] [address], [place] [id number] Comprehensive Metabolic Pane [facility] 08-03-2021 Albumin [Mass/Vol] 3.9 g/dL Normal 3.6-5.1 [facility] [employer] Comment on above: Performed By: #### C BC, TSH, FT3, FT4, CMP #### [facility] [address], [place] [id number] Albumin/Globulin [Mass ratio] 1.1 {ratio} Normal 1.0-2.5 [facility] Comment on above: Performed By: #### C BC, TSH, FT3, FT4, CMP #### [facility] [address], [place] [id number] ALP [Catalytic activity/Vol] 105 U/L Normal 35-119 [facility] Specialist Comment on above: Performed By: #### C BC, TSH, FT3, FT4, CMP #### [facility] [address], [place] [id number] ALT [Catalytic activity/Vol] 10 U/L Normal 6-33 [facility] Comment on above: Result Comment: 06/08 Female reference range changed. Performed By: #### C BC, TSH, FT3, FT4, CMP #### [facility] [address], [place] [id number] Anion gap [Moles/Vol] 20 mmol/L Normal 12-20 [facility] Comment on above: Result Comment: Effe ctive 07/14/2019 reference range changed. Performed By: #### C BC, TSH, FT3, FT4, CMP #### [facility] [address], [place] [id number] AST [Catalytic activity/Vol] 19 U/L Normal 9-34 [facility] Comment on above: Performed By: #### C BC, TSH, FT3, FT4, CMP #### [facility] [address], [place] [id number] BUN/CREA 24 Ratio High 6-22 [facility] Comment on above: Performed By: #### C BC, TSH, FT3, FT4, CMP #### [facility] [address], [place] [id number] Calcium [Mass/Vol] 9.6 mg/dL Normal 8.6-10.2 [facility] Comment on above: Performed By: #### C BC, TSH, FT3, FT4, CMP #### [facility] [address], [place] [id number] Chloride [Moles/Vol] 106 mmol/L Normal 98-107 [facility] Comment on above: Performed By: #### C BC, TSH, FT3, FT4, CMP #### [facility] [address], [place] [id number] CO2 [Moles/Vol] 21 mmol/L Normal 20-31 [facility] Comment on above: Performed By: #### C BC, TSH, FT3, FT4, CMP #### [facility] [address], [place] [id number] Creatinine [Mass/Vol] 2.6 mg/dL High 0.6-1.4 [facility] Comment on above: Performed By: #### C BC, TSH, FT3, FT4, CMP #### [facility] [address], [place] [id number] eGFRAA 22 mL/min/1.73m2 Low >60 [facility] Comment on above: Performed By: #### C BC, TSH, FT3, FT4, CMP #### [facility] [address], [place] [id number] eGFRNAA 18 mL/min/1.73m2 Low >60 [facility] Comment on above: Performed By: #### C BC, TSH, FT3, FT4, CMP #### [facility] [address], [place] [id number] Globulin (S) [Mass/Vol] 3.4 g/dL Normal 1.9-3.7 [facility] Comment on above: Performed By: #### C BC, TSH, FT3, FT4, CMP #### [facility] [address], [place] [id number] Glucose [Mass/Vol] 93 mg/dL Normal 65-99 [facility] Comment on above: Result Comment: For FASTING Glucose --- ADA reference ranges: Normal 65-99 mg/dl Prediabetes 100-125 Diabetes >/= 126 Performed By: #### C BC, TSH, FT3, FT4, CMP #### [facility] [address], [place] [id number] Potassium [Moles/Vol] 6.9 mmol/L Critically high 3.5-5.5 [facility] Comment on above: Result Comment: Repo rt given to Dr León (Ragini) Performed By: #### C BC, TSH, FT3, FT4, CMP #### [facility] [address], [place] [id number] Protein [Mass/Vol] 7.3 g/dL Normal 6.1-8.1 [place] [facility] [place] [facility] Comment on above: Performed By: #### C BC, TSH, FT3, FT4, CMP #### [facility] [address], [place] [id number] Sodium [Moles/Vol] 139 mmol/L Normal 135-146 [place] [place] [facility] Comment on above: Performed By: #### C BC, TSH, FT3, FT4, CMP #### [facility] [address], [place] [id number] TBIL <0.3 Normal [facility] Comment on above: Performed By: #### C BC, TSH, FT3, FT4, CMP #### [facility] [address], [place] [id number] Urea nitrogen [Mass/Vol] 62 mg/dL High 7-25 [facility] Comment on above: Performed By: #### C BC, TSH, FT3, FT4, CMP #### [facility] [address], [place] [id number] Free T3on 08-03-2021 FT3 2.05 pg/mL Normal 2.00-4.40 [facility] Comment on above: Performed By: #### C BC, TSH, FT3, FT4, CMP #### [facility] [address], [place] [id number] Free T4on 08-03-2021 Free T4 [Mass/Vol] 0.91 ng/dL Normal 0.80-1.80 [facility] Jig Inspector Comment on above: Performed By: #### C BC, TSH, FT3, FT4, CMP #### [facility] [address], [place] [id number] Q - B-TYPE NATRIURETIC (BNP) on 08-03-2021 Natriuretic peptide B (Bld) [Mass/Vol] 283 pg/mL High <100 [facility] Jig Inspector Comment on above: Order Comment: [facility] Testing performed at: [employer], [address] [place] [address], [address] [place] [address], [id number], Staffing Manager: Boone Calderón MD [facility] Collection Date/Time: [id number] [facility] Results Received Date/Time: [facility] Reported Date/Time: Result Comment: BNP levels increase with age in the general population with the highest values seen in individuals greater than 75 years of age. Reference: J. Am. Priya. Cardiol. 2002; 40:976-982. Performed By: #### [id number] #### [facility] Default [address] [place] [address] TSHon 08-03-2021 TSH 3.450 uIU/mL Normal 0.400-4.500 [facility] Jig Inspector Comment on above: Performed By: #### C BC, TSH, FT3, FT4, CMP #### [facility] [address] [place], [place] [id number] COVID Quick Testingon 2020 Result Negative [employer] (Chapter 11) Other Quick Fluon 06-06-2021 FLUAV Ab CF (S) [Titer] Negative [facility] (Chapter 11) Other FLUBV Ab CF (S) [Titer] Negative [facility] (Chapter 11) Other Vital Signs Date Time Vital Sign Value Performing Clinician Facility 08-07-2023 10:53-0500 Diastolic blood pressure 64 mm[Hg] Kd Macias MD Work Phone[facility] 08-07-2023 10:53-0500 Heart rate 109 /min Kd Macias MD Work Phone: [employer] 08-07-2023 10:53-0500 Respiratory rate 18 /min Kd Macias MD [facility] 08-07-2023 10:53-0500 SaO2% (BldA) [Mass fraction] 90 % Kd Macias MD Work Phone: [facility] 08-07-2023 10:53-0500 Systolic blood pressure 94 mm[Hg] Kd Macias MD Work Phone: [employer] 06-06-2021 12:45-0500 Body height 157.48 cm Mariam Ward Other [facility] (Chapter 11) Other 06-06-2021 12:45-0500 Body mass index (BMI) [Ratio] 34.75 kg/m2 Mariam Ginty Other [facility] (Chapter 11) Other 06-06-2021 12:45-0500 Body temperature 96.8 [degF] Mariam Ginty Other [facility] (Chapter 11) Other 06-06-2021 12:45-0500 Body weight 86.18 kg Mariam Ginty Other [facility] (Chapter 11) Other 06-06-2021 12:45-0500 Diastolic blood pressure 78 mm[Hg] Mariam Ginty Other [facility] (Chapter 11) Other 06-06-2021 12:45-0500 SaO2% (BldA) [Mass fraction] 94 % Mariam Ginty Other [facility] (Chapter 11) Other 06-06-2021 12:45-0500 Systolic blood pressure 131 mm[Hg] Mariam Ginty Other [facility] (Chapter 11) Other Encounters Encounter Date Encounter Type Care Provider Facility Start: 02-18-2024 End: 02-18-2024 ambulatory JASVIR LEÓN Not Available Start: 01-07-2024 End: 01-07-2024 ambulatory [facility] Start: 12-26-2023 End: 12-26-2023 ambulatory JASVIR LEÓN Not Available Start: 12-07-2023 End: 12-07-2023 ambulatory FARZANEH ARNDT [facility] Start: 10-09-2023 End: 10-09-2023 ambulatory SARAH RODRIGUEZ Not Available Start: 08-07-2023 End: 08-07-2023 ambulatory KD MACIAS [facility] Start: 08-07-2023 End: 08-07-2023 Subsequent hospital visit by physician Kd Macias MD Work Phone: [facility] Start: 08-02-2023 End: 08-02-2023 ambulatory JASVIR LEÓN Not Available Start: 07-30-2023 End: 07-30-2023 ambulatory DAWOOD PEDROZA Not Available Start: 06-28-2023 End: 06-28-2023 ambulatory ODALYS RUSSO Not Available Start: 05-29-2023 End: 05-29-2023 ambulatory [facility] Start: 05-23-2023 End: 05-23-2023 ambulatory JASVIR LEÓN Not Available Start: 05-14-2023 End: 05-14-2023 ambulatory [facility] Start: 05-09-2023 ambulatory JASVIR LEÓN [facility] Start: 05-09-2023 End: 05-09-2023 ambulatory [facility] Start: 12-06-2022 ambulatory BRENT PERALTA Facility [...] Encounter for preprocedural laboratory examination GRETTA OMALLEY [facility] Start: 12-20-2021 End: 12-21-2021 ambulatory GRETTA SHAHRAM Facility:[facility] Start: 12-16-2021 End: 12-17-2021 ambulatory GRETTA OMALLEY Facility: Start: 12-16-2021 End: 12-17-2021 Encounter for preprocedural laboratory examination GRETTA HADLEYCKO Facility: Start: 06-06-2021 End: 06-06-2021 ambulatory Mariam Ward Other [employer] (Chapter 11) Other Start: 06-06-2021 Office outpatient vi sit 15 minutes Mariam Ward [facility] Plan of Treatment Date Care Activity Detail Author Start: 08-07-2023 End: 08-07-2023 Njx dx/ther agt pvrt facet jt lmbr/sac 1 level LUMBAR MEDIAL BRANCH BLOCK Lumbar spondylosis 08/07/2023 10:37 AM [facility] Start: 08-07-2023 End: 08-07-2023 Njx dx/ther agt pvrt facet jt lmbr/sac 2nd level LUMBAR MEDIAL BRANCH BLOCK Lumbar spondylosis 08/07/2023 10:37 AM [facility] Start: 06-04-2023 Annual Wellness Visi t (Medicare) Annual Wellness Visit (Medicare) [facility] Start: 1999 Respiratory Syncytia l Virus (RSV) or age 60 yrs+ (1 - 1-dose 60+ series) Respiratory Syncytial Virus (RSV) or age 60 yrs+ (1 - 1-dose 60+ series) [facility] Start: 1958 DTaP/Tdap/Td vaccine (1 - Tdap) DTaP/Tdap/Td vaccine (1 - Tdap) [facility] Start: 1951 Depression Screen Depression Screen [facility] Start: 1949 Lipid panel Lipids [facility] Oxygen therapy [[facility] Data Set] Initiate Oxygen Therapy Protocol Respiratory Care Routine As Needed until discontinued starting 08/07/2023 BRANDO Work Phone: Comment on above: As Needed until disc ontinued starting 08/07/2023 Immunizations Immunization Date Immunization Notes Care Provider Chris green 03-31-2014 tetanus toxoid, reduced diphtheria toxoid, and acellular pertussis vaccine, adsorbed Mariam Ginty Other [employer] (Chapter 11) Other 09-01-2013 tetanus toxoid, reduced diphtheria toxoid, and acellular pertussis vaccine, adsorbed Mariam Ginty Other [employer] (Chapter 11) Other Payers Date Payer Category Payer [employer] ( [employer] others) [id number] 2016 [employer] others) [id number] 2016 [employer] ( [employer] others) [id number] 1959 [employer] ( [employer] others) [id number] 1959 Medicare [id number] 1939 Unknown [id number] 2.16.840.1.930725.3.579.2.647 1939 Unknown [id number] 2.16.840.1.447656.3.579.2.593 1939 Unknown [id number] 2..840.1.119814.3.579.2.593 1939 Unknown [id number] ..840.1.508845.3.579.2.593 1939 Unknown [id number] 2.16.840.1.988598.3.579.2.593 1939 Unknown [id number] 2.16.840.1.712468.3.579.2.593 1939 Unknown [id number] 2.16.840.1.650381.3.579.2.593 1939 Unknown [id number] 2.16.840.1.576363.3.579.2.593 1939 Unknown [id number] 2.16.840.1.316111.3.579.2.593 1939 Unknown [id number] 2.16.840.1.653396.3.579.2.593 1939 Unknown [id number] 2.16.840.1.722842.3.579.2.593 1939 Unknown [id number] 2.16.840.1.439529.3.579.2.593 1939 Unknown [id number] 2.16.840.1.349823.3.579.2.593 1939 Unknown [id number] 2.16.840.1.501521.3.579.2.593 1939 Unknown [id number] 2.16.840.1.914583.3.579.2.593 1939 Unknown [id number] 2..840.1.920896.3.579.2.754 1939 Unknown [id number] 2.16.840.1.625899.3.579.2.754 1939 Unknown [id number] 2.16.840.1.766313.3.579.2.754 1939 Unknown [id number] 2.16.840.1.987748.3.579.2.754 1939 Unknown [id number] 2.16.840.1.887299.3.579.2.1259 1939 Unknown [id number] 2.16.840.1.869901.3.579.2.1259 1939 Unknown [id number] 2.16.840.1.232785.3.579.2.1259 1939 Unknown [id number] 2.16.840.1.025783.3.579.2.1259 1939 Unknown [id number] 2.16.840.1.420084.3.579.2.1259 1939 Unknown [id number] 2.16.840.1.480586.3.579.2.1259 1939 Unknown [id number] 2.16.840.1.162147.3.579.2.1259 Medicare [id number] 2.16 .840.1.195621.19 Social History Date Type Detail Facility Start: 05-30-2023 Sex Assigned At [facility] [employer] Other Start: 05-08-2023 Tobacco smoking status WIIS Ex-smoker [employer] Phone: End: 07-09-1996 History of tobacco use Current smoker [employer] Phone: End: 07-09-1996 History of tobacco use Cigarette Smoker [employer] Phone: Start: 05-08-2023 Tobacco use and exposure Smokeless tobacco non-user [employer] Phone: Start: 05-30-2023 Alcohol intake Ex-drinker (finding) [employer] Phone: Start: 05-30-2023 History of Social function [employer] Phone: Start: 05-08-2023 Alcohol Comment social [employer] Work Phone: Start: 1940 Sex Assigned At Not on file [employer] Work Phone: Medical Equipment Procedure Code Equipment Code Equipment Origin al Text Equipment Identifier Dates Kyphon [employer] [id number] Start: 05-09-2023 Comment on above: Description: T12 Ref# [id number] by In Vitro route [id number] Clinical Notes 06-06-2021 to 01-07-2024 Carole Loyola LPN - 08/07/2023 10:57 AM ESTDischarge Instructions Note Date & Type Note Facility 01-07-2024 Note [facility] Subjective Jenni Villegas is a 83 y.o. 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 [facility] 12-07-2023 Note Recently admitted victorina hayes at [facility] for Acute HFrEF and palpitations Coreg [...] function and electrolytes and she voiced understanding. 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 RTC with Dr Chao D/W pt about red flag symptoms to call 911 and/or office- increased SOB, Palpitations, syncope, chest pain or any concerns and she voiced understanding Continue all medications as prescribed [facility] 12-07-2023 Note Repeat TTE in 6 mirtha hs Pt denied any worsening symptoms since DC from [facility] and diuresis [facility] 12-07-2023 Note Stable, will monitor with routine echocardiogram in 6 months [facility] 12-07-2023 Note [facility] CARDIOLOGY PROGR ESS NOTE HPI: Jenni Villegas is a 83 y.o. female here for routine f/U and review of TTE and ED f/U Patient here for 6 mo follow up aortic and mitral valve stenosis, diastolic heart failure, and permanent afib. She had an echo last month. She presented to [facility] ED a few weeks ago for [...] She has history of prior admissions to [facility] with AF/RVR and diastolic heart failure decompensation. She has normal coronary angiogram in 2015. Patient here for 6 mo follow up aortic and mitral valve stenosis, diastolic heart failure, and permanent afib. She had an echo last month. She presented to [facility] ED a few weeks ago for [...] initiated. Patient agrees this plan. Emergency Department [facility] 5 Patient name: JENNI VILLEGAS Laboratory [...] has new requirement of 2L O2 by OK. Case discussed with hospitalist who agreed to [...] She has history of prior admissions to [facility] with AF/RVR and diastolic heart failure [...] across the biop (more content not included)... [facility] 12-07-2023 Note Patient here for 6 m o follow up aortic and mitral valve stenosis, diastolic heart failure, and permanent afib. She had an echo last month. She presented to [facility] ED a few weeks ago for [...] All other systems reviewed and are negative. [facility] 12-07-2023 Note Continue to monitor AO valve with repeat TTE in 6 months [facility] 08-07-2023 History of Present illness Narrative Pt [...] vomiting - Difficulty breathing or swallowing CALL 610 Other Instructions: - You should have a follow-up appointment scheduled already or a follow-up plan in place prior to leaving. - Call the office if you develop any problems or have any questions at: [facility] [phone] or Our 24 hour help line is also available: [phone]) If you need refills,or have questions / concerns, outside of our office hours Sunday 8:00 a.m - 4:30 p.m. at [facility], please call [phone] to speak to Constance STEINER or leave a voicemail for her. *Remember to allow at least 48 business hours for medication refill requests. 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 [facility] 05-14-2023 Note Patient here for 6 m [...] All other systems reviewed and are negative. [facility] 06-08-2022 Note HISTORY AND PHYSICAL EXAMINATION Date:06/07/2022 [...] go forward with her elective procedure. [facility] 06-08-2022 Note OPERATIVE NOTE OPERATION DATE: [...] ensuring mobility, phacoemulsification was performed in a moufjpx-apj-yrtula-type fashion. After all nuclear material had been [...] the following day for postoperative care. [facility] 04-13-2022 Note OPERATIVE NOTE OPERATION DATE: [...] ensuring mobility, phacoemulsification was performed in a wtmdzzh-dgm-myiwhd-type fashion. After all nuclear material had been [...] the following day for postoperative care. [facility] 04-13-2022 Note HISTORY AND PHYSICAL EXAMINATION [...] go forward with her elective procedure. [facility] 06-06-2021 Evaluation note Encounter Date Diagnosis [...] Patient care instructions given in writting by [facility] Care At Home document [employer] (Chapter 11) Other Evaluation note* Diagnosis Lumbar spondylosis- Primary Lumbosacral spondylosis without myelopathy documented in this encounter [employer] Work Phone: History general Narrative - Reported* [...] see above list Hospitalization History chf x3 [employer] (Chapter 11) Other Summary Purpose Family History No Family [...] AUTHOR 08/19/2021 [facility] dical Specialist DATE CREATED AUTHOR AUTHOR'S ORGANIZ ATION 12/26/2021 [facility] DATE CREATED AUTHOR AUTHOR'S ORGANIZ ATION 12/15/[address] [facility] DATE CREATED AUTHOR AUTHOR'S ORGANIZ ATION 05/18/2023 [facility] DATE CREATED AUTHOR AUTHOR'S ORGANIZ ATION 08/08/2023 [facility] DATE CREATED AUTHOR AUTHOR'S ORGANIZ ATION 01/08/2024 [facility] DATE CREATED AUTHOR AUTHOR'S ORGANIZ ATION 02/19/2024 [facility] dical Specialists EPIC REASON FOR VISIT (unrecogniz ed section and content) Specialty Diagnoses / Procedures Referred By Contac t Referred To Contact Diagnoses Lumbar spondylosis Lumbar spondylosis [M47.816] Procedures [place] NJX DX/THER AGT PVRT FACET JT LMBR/SAC 1 LEVEL [place] NJX DX/THER AGT PVRT FACET JT LMBR/SAC 2ND LEVEL B/L LUMBAR MEDIAL BRANCH BLOCK L3 L4 L5 B/L LUMBAR MEDIAL BRANCH BLOCK L3 L4 L5 Kd Macias MD [address] [place] [address] BR[employer]O ANDRES Phone: [phone] Referral ID Status Reason Start Date Expiration Date Visits Re quested Visits Authorized [id number] 1 1 PRN Active and Recently Administ [...] Care Teams (unrecognized sec tion and content) Examination Scorer Relationship Specialty Start Date End Date Jasvir León MD [address] [facility] [address] [place] [address] PCP - General Internal Medicine 05/07/23 FOR [...] BE BASED ON THE PRIMARY CLINICAL RECORDS. [employer] provides no warranty or guarantee of the accuracy or completeness of information in this document.
[2024-04-11 18:05] LABS: Basophils Absolute Auto 0.1 10^3/uL (0.0-0.1); Basophils Percent Auto 0.5 % (0.2-2.0); Eosinophils Absolute Auto 0.2 10^3/uL (0.0-0.7); Eosinophils Percent Auto 1.5 % (0.9-7.0); Hematocrit 38.5 % (36.0-48.0); Hemoglobin 11.9 g/dL (12.0-16.0); Immature Granulocytes Abs Auto 0.08 10^3/uL (0.00-0.03); Immature Granulocytes Pct Auto 0.6 % (0.0-0.5); Lymphocytes Absolute Auto 0.6 10^3/uL (1.2-3.8); Lymphocytes Percent Auto 5.1 % (20.5-60.0); Mean Corpuscular HGB Conc 30.9 g/dL (29.9-35.2); Mean Corpuscular Hemoglobin 28.7 pg (26.7-34.0); Mean Corpuscular Volume 92.8 fL (81.0-99.0); Mean Platelet Volume 10.9 fL (9.5-13.5); Monocytes Absolute Auto 1.1 10^3/uL (0.3-0.8); Monocytes Percent Auto 8.5 % (1.7-12.0); Neutrophils Absolute Auto 10.3 10^3/uL (1.4-6.5); Neutrophils Percent Auto 83.8 % (43.0-75.0); Platelet Count 185 10^3/uL (150-450); Red Blood Count 4.15 10^6/uL (4.20-5.40); Red Cell Distribution Width 16.6 % (11.0-15.0); White Blood Count 12.3 10^3/uL (4.0-11.0)
[2024-04-11 18:10] LABS: BUN Creatinine Ratio 20.4; Calcium 9.5 mg/dL (8.5-10.1); Carbon Dioxide 33.1 mmol/L (21.0-32.0); Chloride 97 mmol/L (98-107); Estimated GFR (African America 29 (>=60 mL/min/1.73m^2); Estimated GFR (Non-African Ame 24 (>=60 mL/min/1.73m^2); Glucose 162 mg/dL (74-106); Potassium 4.1 mmol/L (3.5-5.1); Sodium 134 mmol/L (136-145)
[2024-04-11] MEDS: ALPRAZOLAM 0.25 MG TABLET PO (18:53)
[2024-04-11 19:52] LABS: Glucometer 135 mg/dL (74-106)
[2024-04-11] MEDS: ROPINIROLE HCL 0.25 MG TABLET PO (21:22)
[2024-04-11] MEDS: GABAPENTIN 100 MG CAPSULE PO (21:22)
[2024-04-11] MEDS: ACETAMINOPHEN 325 MG TABLET 650 MG PO (21:22)
[2024-04-11] MEDS: OXYCODONE HCL 5 MG TABLET PO (21:22)
[2024-04-11] MEDS: BUPROPION HCL 150 MG SR TABLET 12H PO (21:22)
[2024-04-11] MEDS: ATORVASTATIN CALCIUM 20 MG TABLET PO (21:22)
[2024-04-11] MEDS: HEPARIN SODIUM (PORCINE) 5,000 UNIT/ML VIAL 5000 UNIT SUBQ (21:22)
[2024-04-11] MEDS: CARVEDILOL 12.5 MG TABLET PO (21:22)
[2024-04-12] VITALS (12 sets, daily range): BP systolic 119–138; BP diastolic 62–73; PULSE 66–85; TEMP 36.4–36.7; O2SAT 87–100
[2024-04-12] MEDS: MORPHINE SULFATE 2 MG/ML SYRINGE IV (02:56)
--- NOTE | 2024-04-12 05:10 | RESP.RT ---
Titrated up to 3L, Sp02 increased to 91%
[2024-04-12] MEDS: GABAPENTIN 100 MG CAPSULE PO ×3 (05:57→22:05)
[2024-04-12] MEDS: OMEPRAZOLE 40 MG CAPSULE.DR PO (05:57)
[2024-04-12] MEDS: HEPARIN SODIUM (PORCINE) 5,000 UNIT/ML VIAL 5000 UNIT SUBQ ×3 (05:57→22:04)
[2024-04-12] MEDS: ACETAMINOPHEN 325 MG TABLET 650 MG PO ×3 (05:59→22:05)
[2024-04-12] MEDS: OXYCODONE HCL 5 MG TABLET PO ×3 (05:59→22:05)
[2024-04-12 06:50] LABS: Digoxin 1.5 ng/mL (0.9-2.0)
[2024-04-12 07:35] LABS: Glucometer 146 mg/dL (74-106)
[2024-04-12] MEDS: ASPIRIN 81 MG TABLET.DR PO (08:47)
[2024-04-12] MEDS: DIGOXIN 125 MCG TABLET PO (08:47)
[2024-04-12] MEDS: ESCITALOPRAM 10 MG TABLET PO (08:47)
[2024-04-12] MEDS: BUPROPION HCL 150 MG SR TABLET 12H PO ×2 (08:47→22:05)
[2024-04-12] MEDS: SPIRONOLACTONE 25 MG TABLET PO (08:47)
[2024-04-12] MEDS: CARVEDILOL 12.5 MG TABLET PO ×2 (08:47→22:05)
[2024-04-12] MEDS: TORSEMIDE 20 MG TABLET PO (08:47)
[2024-04-12 11:17] LABS: Glucometer 240 mg/dL (74-106)
[2024-04-12] MEDS: INSULIN ASPART 300 UNIT/3 ML PEN SUBQ ×2 (12:16→22:06)
[2024-04-12] MEDS: FLU VACC QS2024(65UP)/MF59C/PF 60 MCG/0.5 ML SYRINGE IM (13:59)
[2024-04-12] MEDS: CYCLOBENZAPRINE HCL 10 MG TABLET PO ×2 (13:59→22:05)
[2024-04-12] MEDS: PNEUMOCOCCAL 23 VACCINE 25 MCG/0.5 ML SYRINGE IM (14:00)
--- NOTE | 2024-04-12 14:50 | PM.HP ---
HPI H&P: HPI History of Present Illness Chief complaint: fall, multiple rib fxs Narrative: 84 y/o female to ER after a fall. Lost balance and fell backwards hitting tub. Did not hit head and no LOC. Pain in back and left lower ribs. Severe pain to move and to ER. X-ray showed multiple posterior left rib fractures on ribs 5-8. Continued pain and admitted. Slightly better this am. Remains very uncomfortable. Pain with inspiration, cough, or movement. Medication helps with pain. Opioid HPI Opioid Management Most Recent Pain and Opioid Data: Last Pain Scale 10 04/12/24 14:06 Last Pain Assessment 04/12/24 14:06 Last MAR Pain Assessment 04/12/24 13:59 Last ORT Total Score 0 04/11/24 18:06 Last ORT Risk Category Low Risk 04/11/24 18:06 Review of Systems ROS Constitutional Denies: fever, chills or fatigue Cardiovascular Denies: chest pain, palpitations or edema Respiratory Denies: shortness of breath, cough or wheezing Gastrointestinal Denies: abdominal pain, nausea, vomiting or diarrhea Genitourinary Denies: painful urination PFSH PFSH Medical History (Updated 04/12/24 @ 09:01 by Alex Leon MD) Hypothyroid ?E03.9 - Hypothyroidism, unspecified (ICD-10) Acute thoracic back pain ?M54.6 - Pain in thoracic spine (ICD-10) Closed compression fracture of L1 vertebra ?S32.010A - Wedge compression fracture of first lumbar vertebra, initial encounter for closed fracture (ICD-10) Lung mass ?R91.8 - Other nonspecific abnormal finding of lung field (ICD-10) Compression fracture of L1 lumbar vertebra ?S32.010A - Wedge compression fracture of first lumbar vertebra, initial encounter for closed fracture (ICD-10) Acute pain of left foot ?M79.672 - Pain in left foot (ICD-10) 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 ?F32.89 - Other specified depressive episodes (ICD-10) Anxiety ?F41.9 - Anxiety disorder, unspecified (ICD-10) Diabetes ?E11.9 - Type 2 diabetes mellitus without complications (ICD-10) Atrial fibrillation ?I48.91 - Unspecified atrial fibrillation (ICD-10) Surgical History (Updated 11/22/23 @ 00:00 by ) Status post aortic valve repair ?Z98.890 - Other specified postprocedural states (ICD-10) S/P ablation of atrial fibrillation ?Z98.890 - Other specified postprocedural states (ICD-10) ?Z86.79 - Personal history of other diseases of the circulatory system (ICD-10) History of carpal tunnel surgery of right wrist ?Z98.890 - Other specified postprocedural states (ICD-10) H/O: hysterectomy ?Z90.710 - Acquired absence of both cervix and uterus (ICD-10) Aortic valve replaced ?Z95.2 - Presence of prosthetic heart valve (ICD-10) History of cholecystectomy ?Z90.49 - Acquired absence of other specified parts of digestive tract (ICD-10) Family History (Updated 11/17/23 @ 14:56 by Aylin Nobles) Mother Family history of CHF (congestive heart failure) Father Family history of diabetes mellitus Sister Family history of diabetes mellitus Son Family history of myocardial infarction Social History (Updated 11/17/23 @ 14:57 by Aylin Nobles) Within the past year, how often did you have a drink containing alcohol: monthly or less Within the past year, how many standard drinks containing alcohol did you have on a typical day: 1 or 2 Within the past year, how often did you have six or more drinks on one occasion: never Total score: 0 Score interpretation: A score less than 3 is consistent with normal alcohol consumption. Smoking status: Former smoker Non-prescribed substance use: denies use Previous occupational history: retired Highest level of school completed/degree received: high school graduate Are you now , , , , never or living with a partner: In a typical week, how many times do you talk on the telephone with family, friends, or neighbors: 3 or more times per week How often do you get together with friends or relatives: 3 or more times per week How often do you attend religious or taoism services: 4 or more times per year Do you belong to any clubs or organizations such as religious groups unions, fraternal or athletic groups, or school groups: no Total score: 2 Score interpretation: A score of greater than or equal to 2 indicates the lowest level of social isolation. Little interest or pleasure in doing things: not at all Feeling down, depressed, or hopeless: not at all Feel stressed/tense/nervous/anxious/difficulty sleeping: not at all Gender Identity: female Meds Home Medications and Allergies Home Medications ?Medication ?Instructions ?Recorded ?Confirmed ?Type alprazolam 0.25 mg tablet 0.25 mg PO Q6H PRN anxiety 11/17/23 04/11/24 History aspirin 81 mg tablet,delayed 81 mg PO DAILY 11/17/23 04/11/24 History release (Adult Low Dose Aspirin) atorvastatin 20 mg tablet 20 mg PO QPM 11/17/23 04/11/24 History bupropion HCl 150 mg tablet,12 hr 150 mg PO BID 11/17/23 04/11/24 History sustained-release digoxin 125 mcg (0.125 mg) tablet 0.125 mg PO .QOD 11/17/23 04/11/24 History escitalopram oxalate 10 mg tablet 10 mg PO DAILY 11/17/23 04/11/24 History gabapentin 100 mg capsule 100 mg PO TID 11/17/23 04/11/24 History insulin lispro protamine-lispro 8 unit subcut BID 11/17/23 04/11/24 History 100 unit/mL (75-25) subcutaneous pen omeprazole 40 mg capsule,delayed 40 mg PO DAILY 11/17/23 04/11/24 History release ropinirole 0.25 mg tablet 0.25 mg PO QPM 11/17/23 04/11/24 History torsemide 20 mg tablet 20 mg PO DAILY 11/17/23 04/11/24 History carvedilol 12.5 mg tablet (Coreg) 12.5 mg PO BID #60 tabs 11/18/23 04/11/24 Rx spironolactone 25 mg tablet 25 mg PO DAILY #30 tabs 11/18/23 04/11/24 Rx (Aldactone) Allergies Allergy/AdvReac Type Severity Reaction Status Date / Time codeine Allergy Intermediate Unknown Verified 04/11/24 15:34 Penicillins Allergy Intermediate Unknown Verified 04/11/24 15:34 Exam Constitutional Vital Signs, click to edit/add: Last Vital Signs Temp 97.6 F 04/12/24 03:03 Pulse 74 04/12/24 12:25 Resp 20 04/12/24 12:25 BP 138/62 04/12/24 12:25 Pulse Ox 97 04/12/24 12:25 O2 Del Method Nasal Cannula 04/12/24 12:25 O2 Flow Rate 3 04/12/24 12:25 Documenting provider has reviewed patient's vital signs: yes Common normals: no apparent distress, oriented x3 and alert HENMT Common normals: normocephalic Eye Common normals: PERRL and EOMs intact bilaterally Respiratory Common normals: normal respiratory effort and clear to auscultation bilaterally Cardio Common normals: regular rate, regular rhythm, no gallops, no murmurs and no rub GI Common normals: Normal to inspection, nondistended, normoactive bowel sounds present and non-tender Extremity Common normals: no pedal edema Results Labs Labs: Short CBC 04/11/24 Range/Units 17:33 WBC 12.3 H (4.0-11.0) 10^3/uL Hgb 11.9 L (12.0-16.0) g/dL Hct 38.5 (36.0-48.0) % Plt Count 185 (150-450) 10^3/uL BMP 04/11/24 17:33 Sodium 134 L Potassium 4.1 Chloride 97 L Carbon Dioxide 33.1 H BUN 41.0 H Creatinine 2.01 H Glucose 162 H Calcium 9.5 Imaging Chest x-ray: Attestation: I have reviewed the pertinent imaging results. Assessment and Plan Assessment and Plan (1) Multiple rib fractures: (2) Type 2 diabetes mellitus with hyperglycemia: Qualifiers: Diabetes mellitus predatory animal exterminator insulin use: with predatory animal exterminator use Qualified Code(s): E11.65 - Type 2 diabetes mellitus with hyperglycemia; Z79.4 - intermediate teacher (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 of insulin (3) Hypertension: Qualifiers: Hypertension type: primary hypertension Qualified Code(s): I10 - Essential (primary) hypertension (4) Chronic heart failure with preserved ejection fraction (HFpEF): (5) Aortic stenosis, moderate: (6) Persistent atrial fibrillation: Plan Presented with pain from rib fractures and remains unchanged. Continue percocet and neurontin. Add flexeril and PEP. Start PT/OT. Increase ambulation. If improved possible discharge in am.
[2024-04-12 17:54] LABS: Glucometer 124 mg/dL (74-106)
[2024-04-12 20:37] LABS: Glucometer 178 mg/dL (74-106)
[2024-04-12] MEDS: ATORVASTATIN CALCIUM 20 MG TABLET PO (22:05)
[2024-04-12] MEDS: ROPINIROLE HCL 0.25 MG TABLET PO (22:06)
[2024-04-13 03:39] VITALS: O2SAT 86
--- NOTE | 2024-04-13 03:39 | RESP.RT ---
Titrated oxygen up to 3L and Sp02 increased to 91%.
[2024-04-13 04:34] VITALS: BP 98/61; PULSE 60; TEMP 36.6; O2SAT 97
[2024-04-13] MEDS: GABAPENTIN 100 MG CAPSULE PO ×3 (05:19→21:19)
[2024-04-13] MEDS: OMEPRAZOLE 40 MG CAPSULE.DR PO (05:20)
[2024-04-13 07:44] LABS: Glucometer 159 mg/dL (74-106)
[2024-04-13] MEDS: BUPROPION HCL 150 MG SR TABLET 12H PO ×2 (08:41→21:19)
[2024-04-13] MEDS: SPIRONOLACTONE 25 MG TABLET PO (08:41)
[2024-04-13] MEDS: ESCITALOPRAM 10 MG TABLET PO (08:41)
[2024-04-13] MEDS: ASPIRIN 81 MG TABLET.DR PO (08:41)
[2024-04-13] MEDS: CARVEDILOL 12.5 MG TABLET PO ×2 (08:42→21:19)
[2024-04-13] MEDS: INSULIN ASPART 300 UNIT/3 ML PEN SUBQ ×3 (08:42→21:19)
[2024-04-13] MEDS: TORSEMIDE 20 MG TABLET PO (08:42)
[2024-04-13] MEDS: ACETAMINOPHEN 325 MG TABLET 650 MG PO ×2 (08:42→13:44)
[2024-04-13] MEDS: OXYCODONE HCL 5 MG TABLET PO ×2 (08:42→15:09)
[2024-04-13 11:50] VITALS: O2SAT 90
[2024-04-13 13:21] VITALS: BP 102/56; PULSE 76; O2SAT 90
[2024-04-13] MEDS: HEPARIN SODIUM (PORCINE) 5,000 UNIT/ML VIAL 5000 UNIT SUBQ ×2 (13:45→21:19)
--- NOTE | 2024-04-13 14:16 | PM.PN ---
Progress Note: Subjective Subjective Interval history: Patient not doing well. Continues to have significant pain and not comfortable. Very difficult to walk or transfer due to pain. Using flexeril and helps. Percocet provides mild relief. Decreased appetite and no emesis or diarrhea. No chest pain or palpitations. No SOB or cough. Exam Constitutional Vital Signs, click to edit/add: Last Vital Signs Temp 97.9 F 04/13/24 04:34 Pulse 76 04/13/24 13:21 Resp 18 04/13/24 13:21 BP 102/56 04/13/24 13:21 Pulse Ox 90 L 04/13/24 13:21 O2 Del Method Room Air 04/13/24 13:21 O2 Flow Rate 3 04/13/24 11:50 Documenting provider has reviewed patient's vital signs: yes Common normals: no apparent distress, oriented x3 and alert HENMT Common normals: normocephalic Eye Common normals: PERRL and EOMs intact bilaterally Respiratory Common normals: normal respiratory effort and clear to auscultation bilaterally Cardio Common normals: regular rate, regular rhythm, no gallops, no murmurs and no rub GI Common normals: Normal to inspection, nondistended, normoactive bowel sounds present and non-tender Extremity Common normals: no pedal edema Progress Note: A&P Assessment and Plan (1) Multiple rib fractures: (2) Type 2 diabetes mellitus with hyperglycemia: Qualifiers: Diabetes mellitus terminal operations manager insulin use: with terminal operations manager use Qualified Code(s): E11.65 - Type 2 diabetes mellitus with hyperglycemia; Z79.4 - penitentiary (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 of insulin (3) Hypertension: Qualifiers: Hypertension type: primary hypertension Qualified Code(s): I10 - Essential (primary) hypertension (4) Chronic heart failure with preserved ejection fraction (HFpEF): (5) Aortic stenosis, moderate: (6) Persistent atrial fibrillation: Plan Continues to have significant pain and problems with movement and ambulation. Continue medications for pain. Continue PT. Monitor vitals and BS. Family discussed possible SNF. Advised family patient currently in observation status and no medical indication for inpatient. director human services consulted but advised that would have to pay out of pocket for SNF.
[2024-04-13 19:33] VITALS: O2SAT 96
[2024-04-13 19:40] VITALS: BP 125/77; PULSE 67; TEMP 36.6; O2SAT 90
[2024-04-13 19:48] LABS: Glucometer 228 mg/dL (74-106)
[2024-04-13] MEDS: ATORVASTATIN CALCIUM 20 MG TABLET PO (21:19)
[2024-04-13] MEDS: ROPINIROLE HCL 0.25 MG TABLET PO (21:19)
[2024-04-13] MEDS: CYCLOBENZAPRINE HCL 10 MG TABLET PO (21:19)
[2024-04-14 03:57] VITALS: BP 112/67; PULSE 75; TEMP 37.7; O2SAT 95
[2024-04-14 06:06] LABS: Hematocrit 35.3 % (36.0-48.0); Mean Corpuscular HGB Conc 31.2 g/dL (29.9-35.2); Mean Corpuscular Hemoglobin 28.9 pg (26.7-34.0); Mean Corpuscular Volume 92.9 fL (81.0-99.0); Mean Platelet Volume 9.8 fL (9.5-13.5); Platelet Count 175 10^3/uL (150-450); Red Cell Distribution Width 16.7 % (11.0-15.0); White Blood Count 7.8 10^3/uL (4.0-11.0)
[2024-04-14] MEDS: HEPARIN SODIUM (PORCINE) 5,000 UNIT/ML VIAL 5000 UNIT SUBQ (06:11)
[2024-04-14] MEDS: GABAPENTIN 100 MG CAPSULE PO (06:11)
[2024-04-14] MEDS: OMEPRAZOLE 40 MG CAPSULE.DR PO (06:12)
[2024-04-14 06:18] LABS: Alanine Aminotransferase 29 U/L (14-59); Albumin Globulin Ratio 0.6; Albumin Level 2.6 g/dL (3.4-5.0); Alkaline Phosphatase 144 U/L (46-116); Anion Gap 11.5; Aspartate Amino Transferase 46 U/L (15-37); BUN Creatinine Ratio 21.5; Bilirubin Total 0.8 mg/dL (0.2-1.0); Calcium 9.3 mg/dL (8.5-10.1); Carbon Dioxide 27.1 mmol/L (21.0-32.0); Chloride 98 mmol/L (98-107); Estimated GFR (African America 34 (>=60 mL/min/1.73m^2); Estimated GFR (Non-African Ame 28 (>=60 mL/min/1.73m^2); Globulin 4.7 g/dL; Glucose 134 mg/dL (74-106); Potassium 3.6 mmol/L (3.5-5.1); Sodium 133 mmol/L (136-145); Total Protein 7.3 g/dL (6.4-8.2)
[2024-04-14 06:31] LABS: Eosinophils Absolute Manual 0.23 10^3/uL (0.00-0.70); Lymphocytes Absolute Manual 0.85 10^3/uL (1.20-3.80); Monocytes Absolute Manual 0.62 10^3/uL (0.30-0.80); Segmented Neut Absolute Manual 6.08 10^3/uL (1.4-6.5)
[2024-04-14] MEDS: ACETAMINOPHEN 325 MG TABLET 650 MG PO ×2 (07:32→11:22)
[2024-04-14] MEDS: OXYCODONE HCL 5 MG TABLET PO (07:32)
[2024-04-14 08:25] VITALS: BP 125/73; PULSE 88; TEMP 36.8; O2SAT 91
[2024-04-14] MEDS: SPIRONOLACTONE 25 MG TABLET PO (09:03)
[2024-04-14] MEDS: ASPIRIN 81 MG TABLET.DR PO (09:03)
[2024-04-14] MEDS: ESCITALOPRAM 10 MG TABLET PO (09:03)
[2024-04-14] MEDS: CARVEDILOL 12.5 MG TABLET PO (09:03)
[2024-04-14] MEDS: TORSEMIDE 20 MG TABLET PO (09:03)
[2024-04-14] MEDS: BUPROPION HCL 150 MG SR TABLET 12H PO (09:03)
[2024-04-14] MEDS: DIGOXIN 125 MCG TABLET PO (09:07)
--- NOTE | 2024-04-14 09:46 | CM.NOTE ---
Rounds made with Dr. Patricia, discussed with pt and daughter regarding pt's OBS status and not meeting 3 day inpt stay for Medicare to cover skilled. Daughter verbalizes pt does live at home alone and has concern for her to return home. Daughter would like to check cost for skilled rehab at [facility] at discharge. SW updated and will call for costs and relay to daughter and pt. Pt does have walker she uses at home. Daughter states the walker she has is too large to fit in bathroom and contributed to pt's fall. Daughter is checking home for smaller walker.
--- NOTE | 2024-04-14 09:58 | SWNOTE1 ---
SW spoke to case management and pt is in observation, but needs rehab. Family wants [facility] and it was explained to daughter in the room that it is out of pocket. SW to go back in room. Referral sent to [facility]. Referral included face sheet, ED note, H&P, provider notes, case management report, nursing notes, diagnostic imaging, med list, and PT/OT notes.
--- NOTE | 2024-04-14 10:37 | SWNOTE1 ---
SW spoke to daughter in room. SW explained to daughter about pt being in observation and Medicare not paying for rehab, daughter voiced understanding. SW was able to give daughter the rate as SW had spoke with Akua at [facility]. During our conversation Akua called DOR[facility]. Pt's daughter was able to speak with Taras over the phone to discuss financial aspect of pt going private pay. SW explained that we will get transport set up and let [facility] know time. Daughter voiced pt was up in chair earlier. At this time daughter decided to have pt go over by wheelchair. SW updated nursing and will work on discharge.
--- NOTE | 2024-04-14 10:43 | REH.PTDLY ---
Physical Therapy Daily Note PT Daily Note/Assess Start: 04/14/24 10:40 Freq: Status: Active Protocol: Document 04/14/24 10:40 CHERY (Rec: 04/14/24 10:43 CHERY [id number]) Physical Therapy Daily Note/Assessment Time In 10:23 Time Out 10:32 Subjective Pt in bed upon arrival, lethargic. Pt just got back into bed per nursing, moving better today and pt not in as much pain, but just had pain pill. Pt agreeable to bed exs. Therapeutic Exercise Minutes (minutes) 8 Therapeutic Exercise Units 1 Therapeutic Exercise Treatment Instructed in supine AP, QS, GS, AA heel slides, AA SLR, and hip abd 10x ea for improved mobility. Pt declines getting up for ambulation as she just got back into bed from being up in chair this morning. Total Therapy Minutes 8 Total Physical Therapy Units 1 Daily Note Summary Pt fatigued this morning, ready to fall asleep after exs . Limited to bed exs only due to this. Pt is to be DC later today to the [facility].
--- NOTE | 2024-04-14 11:10 | PM.DS1 ---
DS: Providers Provider Date of admission: 04/11/24 17:50 Primary care physician: JHONATAN LUCIA Admitting clinician: Alex Leon Attending physician on admission: Alex Leon Consults: 04/11/24 17:34 Occupational Therapy Eval and Treat Routine Reason for consultation: Ambulatory dysfunction/weakness Physical Therapy Eval and Treat Routine Reason for consultation: Ambulatory dysfunction/weakness Attending physician on discharge: Shaikh Harshad Discharging clinician: Shaikh Harshad Anticipated date of discharge: 04/14/24 DS: Diagnosis Discharge Diagnosis (1) Multiple rib fractures: Qualifiers: Encounter type: subsequent encounter Fracture type: closed Laterality: left Fracture healing: with routine healing Qualified Code(s): S22.42XD - Multiple fractures of ribs, left side, subsequent encounter for fracture with routine healing (2) Chronic hypoxic respiratory failure: (3) Type 2 diabetes mellitus with hyperglycemia: Qualifiers: Diabetes mellitus termite exterminator insulin use: with shelter use Qualified Code(s): E11.65 - Type 2 diabetes mellitus with hyperglycemia; Z79.4 - group home (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 of insulin (4) Hypertension: Qualifiers: Hypertension type: primary hypertension Qualified Code(s): I10 - Essential (primary) hypertension (5) Chronic heart failure with preserved ejection fraction (HFpEF): (6) Aortic stenosis, moderate: (7) Persistent atrial fibrillation: (8) CKD (chronic kidney disease) stage 3, GFR 30-59 ml/min: Qualifiers: Chronic kidney disease stage 3 subtype: stage 3a (GFR 45-59) Qualified Code(s): N18.31 - Chronic kidney disease, stage 3a (9) HLD (hyperlipidemia): Qualifiers: Hyperlipidemia type: unspecified Qualified Code(s): E78.5 - Hyperlipidemia, unspecified DS: Summary Hospital Course Hospital Course: 84-year-old female was brought to ER after a fall at home. Patient has poor functional status at baseline and uses a walker to ambulate. After fall, she was unable to get up and walk and was in considerable pain. Workup in ER revealed multiple fractured ribs. Patient was admitted for pain control and ambulatory dysfunction/generalized weakness. During the course of admission, she was treated with combination of oral and IV narcotics. She also was evaluated by physical therapy and Occupational Therapy. While patient's pain is reasonably controlled, she is still quite weak and family is concerned about her safety at home. director of student financial services were consulted and patient was accepted for acute rehab at a local rehab facility. Patient is medically stable for discharge. I will call in oral Percocet as needed for intractable pain Status at Discharge Functional status at discharge: uses cane/walker Overall status at discharge: patient is progressing back to baseline Time Spent with Patient Time attestation: Total time spent providing and/or coordinating discharge services: Time spent: greater than 30 minutes Exam Constitutional Vital Signs, click to edit/add: Last Vital Signs Temp 98.3 F 04/14/24 08:25 Pulse 88 04/14/24 08:25 Resp 18 04/14/24 08:25 BP 125/73 04/14/24 08:25 Pulse Ox 91 L 04/14/24 08:25 O2 Del Method Room Air 04/14/24 08:25 O2 Flow Rate 2 04/14/24 03:57 Documenting provider has reviewed patient's vital signs: yes Common normals: no apparent distress, oriented x3 and alert General appearance: cooperative, comfortable and frail appearing [facility] Common normals: normocephalic Eye Common normals: PERRL and EOMs intact bilaterally Respiratory Common normals: normal respiratory effort and clear to auscultation bilaterally Effort & inspection: able to speak in complete sentences Cardio Common normals: regular rate, regular rhythm, no gallops, no murmurs and no rub Extremity Common normals: normal to inspection, full ROM and no pedal edema Neuro Common normals: oriented x3, moves all extremities and no focal motor deficits Psych Common normals: mental status grossly normal, thought process normal, denies homicidal ideation and denies suicidal ideation DS: Data Data Completed and Pending Labs on day of discharge: Labs from last 24 hours 04/14/24 04/13/24 05:52 19:39 WBC 7.8 RBC 3.80 L Hgb 11.0 L Hct 35.3 L MCV 92.9 MCH 28.9 MCHC 31.2 RDW 16.7 H Plt Count 175 MPV 9.8 Seg Neuts % (Manual) 78.0 H Lymphocytes % (Manual) 11.0 L Monocytes % (Manual) 8.0 Eosinophils % (Manual) 3.0 Basophils % (Manual) 0.0 L Neutrophils # (Manual) 6.08 Lymphocytes # (Manual) 0.85 L Monocytes # (Manual) 0.62 Eosinophils # (Manual) 0.23 Basophils # (Manual) 0.00 Sodium 133 L Potassium 3.6 Chloride 98 Carbon Dioxide 27.1 Anion Gap 11.5 BUN 37.0 H Creatinine 1.72 H Est GFR ( Amer) 34 L Est GFR (Non-Af Amer) 28 L BUN/Creatinine Ratio 21.5 Glucose 134 H Calcium 9.3 Total Bilirubin 0.8 AST 46 H ALT 29 Alkaline Phosphatase 144 H Total Protein 7.3 Albumin 2.6 L Globulin 4.7 Albumin/Globulin Ratio 0.6 POC Glucose 228 H Discharge Plan Discharge Disposition: Xfer SNF Condition: Good Discharge Medications: New oxycodone-acetaminophen [Percocet] 5-325 mg tablet 1 tab PO Q8H PRN (Reason: pain) 4 Days Qty: 10 0RF Continued alprazolam 0.25 mg tablet 0.25 mg PO Q6H PRN (Reason: anxiety) atorvastatin 20 mg tablet 20 mg PO QPM bupropion HCl 150 mg tablet sustained-release 12 hr 150 mg PO BID digoxin 125 mcg (0.125 mg) tablet 0.125 mg PO .QOD insulin lispro protamin-lispro 100 unit/mL (75-25) insulin pen 8 unit SUBCUT BID omeprazole 40 mg capsule,delayed release(DR/EC) 40 mg PO DAILY ropinirole 0.25 mg tablet 0.25 mg PO QPM torsemide 20 mg tablet 20 mg PO DAILY aspirin [Adult Low Dose Aspirin] 81 mg tablet,delayed release (DR/EC) 81 mg PO DAILY escitalopram oxalate 10 mg tablet 10 mg PO DAILY gabapentin 100 mg capsule 100 mg PO TID carvedilol [Coreg] 12.5 mg tablet 12.5 mg PO BID Qty: 60 0RF Rx Instructions: must administer with a meal/food spironolactone [Aldactone] 25 mg tablet 25 mg PO DAILY Qty: 30 0RF Print Language: Uzbek Forms: Portal Instructions Follow Up Appointments: F/u with PCP in one week
[2024-04-14 11:12] VITALS: O2SAT 95
--- NOTE | 2024-04-14 11:34 | SWNOTE1 ---
Medicare Outpatient Observation Notice reviewed and discussed with patient. Pt. verbalized understanding and signed the form. Original given to patient and copy placed in patient?s chart.
--- NOTE | 2024-04-14 11:52 | SWNOTE1 ---
Correction to previous note. Pt did not sign [facility]. Medicare Outpatient Observation Notice reviewed and discussed with patient's daughter. Pt's daughter verbalized understanding and signed the form. Original given to patient's daughter and copy placed in patient?s chart.
--- NOTE | 2024-04-14 11:53 | SWNOTE1 ---
[facility] does not have transport available today, SW to call trips. Nurse came to office and family is going to transport. Nurse voiced she called report to [facility] and [facility] is aware she is coming now. [facility] did ask if dc med rec has been sent and to make sure it is included in the packet. Nurse voiced understanding. DORINA still faxed over dc med rec. DORINA called Akua at [facility] to make her aware pt is coming now. DORINA completed [facility] online as well. Pt is going to [facility] skilled private pay.
== END 2024-04-14 11:56 ==
LOC: ER 17:16 → MS 17:54
PROVIDERS: Admitting Provider Internal Medicine; Emergency Provider Emergency Medicine; PCP Internal Medicine; Visit Provider Internal Medicine
DX: S22.42XA Multiple fractures of ribs, left side, initial encounter for closed fracture (principal); J96.11 Chronic respiratory failure with hypoxia; E11.65 Type 2 diabetes mellitus with hyperglycemia; I50.32 Chronic diastolic (congestive) heart failure; I35.0 Nonrheumatic aortic (valve) stenosis; I48.19 Other persistent atrial fibrillation; N18.31 Chronic kidney disease, stage 3a; I13.0 Hypertensive heart and chronic kidney disease with heart failure and stage 1 through stage 4 chronic kidney disease, or unspecified chronic kidney disease; E78.5 Hyperlipidemia, unspecified; E11.22 Type 2 diabetes mellitus with diabetic chronic kidney disease; W18.30XA Fall on same level, unspecified, initial encounter; Z87.891 Personal history of nicotine dependence; Z23 Encounter for immunization
CPT/HCPCS: 36415; 71101; 72070; 80048; 80053; 80162; 82948; 85007; 85025; 85027; 90662; 90732; 94667; 94668; 94761; 96372; 96374; 96376; 97110; 97161; 99285; G0008; G0009; G0378; J1644; J2270

== ENCOUNTER 2024-04-24 20:55 | Emergency (ER) | payer MEDICARE, OTHER, SELFPAY ==
--- NOTE | 2024-04-24 21:00 | XR_ITS ---
The [address] [address] Patient Name: KATHY VILLEGAS MRN: [id number] date: 1940 Sex: F Assigned Patient Location: ER Current Patient Location: ER Accession/Order Number: [id number] Exam Date: 04/24/2024 21:05 Report Date: 04/24/2024 22:54 At the request of: POPPY OLIVERA Procedure: XR chest 1V EXAM: XR chest 1V HISTORY: chest pain COMPARISON: Chest radiograph 11/17/2023, rib series 04/11/2024, chest CT 03/02/2023 TECHNIQUE: Single portable view of the chest FINDINGS: Devices: Overlying leads. Lungs / Pleura: Similar density of the right lung base, which may represent middle lobe atelectasis. Hazy airspace opacity of the left lower lung. Interstitial thickening diffusely. No pneumothorax. No significant pleural effusion. Heart and mediastinum: Prominent cardiomediastinal silhouette, which may be exaggerated by positioning. Poststernotomy changes. Bones/soft tissues: Redemonstrated multilevel left-sided rib fractures. IMPRESSIONS: Interval progression of the left basilar airspace disease from 04/11/2024. Findings concerning for infectious or posttraumatic etiology. Radiographic surveillance to resolution is recommended given pre-existing basilar airspace disease on 03/02/2023 CT. Electronically authenticated by: SADIE MARSH Date: 04/24/2024 22:54
--- NOTE | 2024-04-24 21:00 | ECG_ITS ---
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: : [id number] Requested By: JHONATAN LUCIA Order Number: [id number] Reading MD: ROBERTO ZIMMERMAN Measurements Intervals [place] Rate: 80 P: -44001 AR: -26881 QRS: 93 QRSD: 86 T: -57 QT: 344 QTc: 380 Interpretive Statements 1210 Atrial fibrillation 3532 Lateral myocardial infarction, probably recent [address] depression, probably digitalis effect 93968 Twave abnormality, possible inferior ischemia or digitalis effect 7102 Moderate right axis deviation 9150 abnormal ECG Compared to ECG 11/17/2023 11:28:11 Myocardial infarct finding now present Right-axis deviation now present ST (T wave) deviation still present Possible ischemia still present Electronically Signed On 04-25-2024 5:00:58 EDT by ROBERTO ZIMMERMAN
--- OUTSIDE RECORDS SUMMARY | 2024-04-24 21:03 | XMS_ITS | CCD ---
Author Organization [facility] Care Team Providers Care Bottom Worker Name Role Phone GRETTA OMALLEY Admitting Unavailable GRETTA OMALLEY Attending Unavailable JASVIR LEÓN Referring Unavailable JASVIR LEÓN Primary Care Unavailable Mariam Ward Unavailable DR JASVIR LEÓN Primary Care Unavailable JOSEFINA HCAO Consulting Unavailable JOSEFINA CHAO Attending Unavailable JOSEFINA [...] Attending Unavailable JASVIR LEÓN Attending Unavailable DAWOOD EPDROZA Attending Unavailable RALF FERGUSON Referring Unavailable JASVIR LEÓN Attending Unavailable SARAH RODRIGUEZ Attending Unavailable JASVIR LEÓN Attending Unavailable JASVIR LEÓN Attending Unavailable ODALYS RUSSO Attending Unavailable JASVIR LEÓN Referring Unavailable Allergies Allergy Classification Reported Allergen(s) Allergy Type Date of Onset Reaction(s) Facility (4 sources) Codeine; Translations: [CODEINE] Drug Allergy 4 [facility] Repository (4 sources) Penicillins; Translations: [PENICILLINS] Drug allergy (disorder) 2 [facility] Repository (1 source) penicillian Propensity to adverse reactions rash [facility] Other (1 source) codiene Propensity to adverse reactions abdominal pain [facility] Other (2 sources) sacubitril / valsartan Drug Allergy 2 [facility] Repository (1 source) Codeine Drug [...] UNSPECIFIED] Onset: 3 Other aftercare (1 source) 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; Translations: [HALFWAY CURRENT USE OF INSULIN] Onset: 3 Episodic Other aftercare (1 source) tank terminal gauger (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 of aspirin; Translations: [HALFWAY CURRENT USE OF ASPIRIN] Onset: 3 Episodic Other aftercare (1 source) Other tank terminal gauger (current) drug therapy; Translations: [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 [facility] Office Visiton 12-07-2023 Follow-up visit [id number] Jenni Villegas 1940 F Date Provider Department Center 12/07/2023 FARZANEH PERSAUD Family History Problem Relation Age of Onset Diabetes Father Heart failure Father Other Other Family Status - Relation Status Age at Father Other Level of Service:[id number] ID OFFICE/OUTPATIENT ESTABLISHED MOD MDM 30 MIN [facility] 36on 11-16-2023 36 Regarding echo performed on 10/23/2023: MD Mariaa Fernandes MA; Farzaneh Arndt NP [place], she sees you soon, echo is consistent with volume overload, I could consider intensification of diuretics before determining the need for FARA [facility] XR COMPARISON OF OUTSIDE HIRAL MSon 08-07-2023 XR COMPARISON OF OUTSIDE FILMS RADRPT There is no result for this study. This is a placeholder for comparison films only. Final result Normal [facility] XR COMPARISON OF OUTSIDE HIRAL MSon 05-29-2023 XR COMPARISON OF OUTSIDE FILMS RADRPT There is no result for this study. This is a placeholder for comparison films only. Final result Normal [facility] Office Visiton 05-14-2023 Follow-up visit [id number] Jenni Villegas 1940 F Date Provider Department Center 05/14/2023 [id number] IBRAHIM CARD Jose Alfred[facility] Family History Problem Relation Age of Onset Diabetes Father Heart failure Father Other Other Family Status - Relation Status Age at Father Other Level of Service:[id number] ID OFFICE/OUTPATIENT ESTABLISHED MOD MDM 30-39 MIN [facility] FLUORO FOR SURGICAL PROCEDUR ESon 05-09-2023 FLUORO FOR SURGICAL PROCEDURES RADRPT Radiology exam is complete. No Radiologist dictation. Please follow up with ordering provider. Final result Normal [facility] SURGICALon 05-09-2023 SURGICAL [place] [facility] JENNI VILLEGAS [id number] Assoc. Page 1 of [address] [place] [address] PROC: 05/09/2023 [place] RECV: 05/11/[address] RPTD: 05/16/2023 [place] [address] LOC: [facility] ACCT: [id number] SEX: F : 1940 AGE: 83 Y [...] negative. The CD138 demonstrates scattered plasma cells. Radcliff and lambda surface immunoglobulin light chain LALO is performed with adequate controls. The kappa and lambda stains demonstrate a polytypic plasma cell population. Overall, there is no evidence of an atypical infiltrate. Malignancy is not identified. *This test was developed and its performance characteristics determined by [facility]. It has not been cleared or approved by the U.S. Food and Drug Administration. Pursuant to the requirements of CLIA, this laboratory has established and verified the test's accuracy and precision. Additional information about this type of test is available upon request. [id number] [phone] INDY PLATT M.D., F.C.A.P. [facility]/ 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 Page 1 of 1\X0D0A\[address]\X0D0A\[place] [address]\X0D0A\ PROC: 05/09/2023\X0D0A\[facility] RECV: 05/11/2023\X0D0A\[address] RPTD: 05/16/2023\X0D0A\[place] [address]\X0D0A\ LOC: [facility]\X0D0A\ ACCT: [id number] SEX: F\X0D0A\ : 1940 AGE: 83 Y\X0D0A\X0D0A\ PATHOLOGY REPORT\X0D0A\ ATTN: NON-STAFF PHYSICIAN\X0D0A\ REQ: KD BAHN\X0D0A\X0D0A\X0D0A\Copies To: JASVIR LEÓN\X0D0A\X0D0A\X0D0A\Clinical Information: AGE-RELATED OSTEOPOROSIS WITH CURRENT\X0D0A\PATHOLOGICAL FRACTURE OF VERTEBRA, INITIAL ENCOUNTER\X0D0A\X0D0A\FINAL DIAGNOSIS:\X0D0A\Bone, T12 vertebral body, needle core biopsy:\X0D0A\ Bone and marrow with fracture site changes.\X0D0A\ See microscopic description.\X0D0A\X0D0A\Specimen:\X0D0A\BIOPSY OF BONE, T12 VERTEBRAL BODY\X0D0A\X0D0A\X0D0A\Gross Examination:\X0D0A\The container is labeled Jenni [place], T12 vertebral body biopsy.\X0D0A\Received in formalin are [...] negative. The CD138 demonstrates scattered plasma cells. Radcliff and\X0D0A\lambda surface immunoglobulin light chain LALO is performed with\X0D0A\adequate controls. The kappa and lambda stains demonstrate a polytypic\X0D0A\plasma cell population. Overall, there is no evidence of an atypical\X0D0A\infiltrate. Malignancy is not identified.\X0D0A\X0D0A\*This test was developed and its performance characteristics determined\X0D0A\by [facility]. It has not been cleared or\X0D0A\approved by the U.S. Food and Drug Administration. Pursuant to the\X0D0A\requirements of CLIA, this laboratory has established and verified the\X0D0A\test's accuracy and precision. Additional information about this type\X0D0A\of test is available upon request.\X0D0A\X0D0A\34545\X0D0A\05660\X0D0A\14022 x 3\X0D0A\79416\X0D0A\95955\X0D0A\X0D0A\X0D0A\X0D0A\ \X0D0A\ INDY PLATT M.D., F.C.A.P.\X0D0A\X0D0A\X0D0A\[facility]/ [facility] Printed on: 05/16/2023\X0D0A\[address]\X0D0A\[place], [place] [address]\X0D0A\Original print date: 05/16/2023 Performed By: #### 1 [id number] #### [facility] See Report 36on 02-04-2023 36 I reviewed labs from 02/02/2023. Please have her increased torsemide further to a total 60 mg daily (she can do 30 mg bid) and get same repeat labs in 2-3 weeks. Also please make sure she follows with Dr León regarding her low glucose. [facility] Telephoneon 02-04-2023 Telephone [id number] Jenni Villegas 1940 F Date Provider Department Center 02/04/2023 Rocky-JOSEFINA CHAO [facility] Family History Problem Relation Age of Onset Diabetes Father Heart failure Father Other Other Family Status - Relation Status Age at Father Other Normal [facility] DIGOXINon 12-06-2022 DIG <0.2 Critically low 0.9-2.0 [facility] Comment on above: Performed By: #### B LDCX2 #### [facility] [address] [address] [address] Lisa Martinez PROF CHEM 8 (BAS METB)on Anion gap [Moles/Vol] 9.6 mmol/L Normal [facility] Comment on above: Performed By: #### T SHRFT4, BMP ####[facility] [address] [id number] Martinez Calcium [Mass/Vol] 9.0 mg/dL Normal 8.5-10.1 [facility] Comment on above: Performed By: #### T SHRFT4, BMP ####[facility] [address] [id number] Martinez Chloride [Moles/Vol] 103 mmol/L Normal 98-107 [facility] Comment on above: Performed By: #### T SUPRIYAFT4, BMP ####[facility] [address] [id number]. Lisa Martinez CO2 [Moles/Vol] 33.4 mmol/L Critically high 21.0-32.0 [facility] Comment on above: Performed By: #### T SHRFT4, BMP ####[facility] [address] [id number]. Lisa Martinez Creatinine [Mass/Vol] 1.69 mg/dL Critically high 0.55-1.02 [facility] Comment on above: Performed By: #### T ALFRED4, BMP ####[facility] [address] [address]Dr. Lisa Martinez EGFR-AF CZECH 35 mL/min/1.73m2 Critically low >=60 [facility] Comment on above: Performed By: #### T ALFRED4, BMP ####[facility] [address] [place], [place] [address]Dr. Lisa Martinez EGFR-NON AF CZECH 29 mL/min/1.73m2 Critically low >=60 [facility] Comment on above: Performed By: #### T KELLEY, BMP ####[facility] [address] [place], [place] [address]Dr. Lisa Martinez Glucose [Mass/Vol] 72 mg/dL Critically low 74-106 Th [facility] Comment on above: Performed By: #### T KELLEY, BMP ####[facility] [address] [place], [place] [address]Dr. Lisa Martinez Potassium [Moles/Vol] 4.0 mmol/L Normal 3.5-5.1 [facility] Comment on above: Performed By: #### T ALFRED4, BMP ####[facility] [address] [place], [place] [address]Dr. Lisa Martinez Sodium [Moles/Vol] 142 mmol/L Normal 136-145 [facility] Comment on above: Performed By: #### T ALFRED4, BMP ####[facility] [address] [place], [place] [address]Dr. Lisa Martinez Urea nitrogen [Mass/Vol] 42.0 mg/dL Critically high 7.0-18.0 [facility] Comment on above: Performed By: #### T ALFRED4, BMP ####[facility] [address] [place], [place] [address]Dr. Fabianachapis Martinez Urea nitrogen/Creatinin e [Mass ratio] 24.9 mg/mg Normal [facility] Comment on above: Performed By: #### T SHRFT4, BMP ####[facility] [address] [address]DrIngrid Martinez TSH W/ REFLEX TO FT4on 12-06 TSH 2.427 uIU/mL Normal 0.358-3.740 [facility] Comment on above: Performed By: #### T SHRFT4, BMP ####[facility] [address] [address]Dr. Lisa Martinez BNPon 11-15-2022 Natriuretic peptide B (Bld) [Mass/Vol] 6134.0 pg/mL Critically high <=1,800.0 [facility] Comment on above: Performed By: #### B BIOFUELS TECHNOLOGY DEVELOPMENT MANAGER, CMP, MG ####[facility] [address] [address]DrIngrid Martinez CBC AUTO DIFFon 11-15-2022 BASO # 0.0 103/ul Normal 0.0-0.1 [facility] Comment on above: Performed By: #### K U #### [facility] [address] [address] [address] Lisa Martinez Basophils/100 WBC (Bld) 0.6 % Normal 0.2-2.0 [facility] Comment on above: Performed By: #### K U #### [facility] [address] [address] [address] Lisa Martinez EO # 0.2 103/ul Normal 0.0-0.7 [facility] Comment on above: Performed By: #### K U #### [facility] [address] [address] [address] Lisa Martinez Eosinophils/100 WBC (Bld) 2.9 % Normal 0.9-7.0 [facility] Comment on above: Performed By: #### K U #### [facility] [address] [address] [address] Lisa Martinez Erythrocyte distribution width (RBC) [Ratio] 14.9 % Normal 11.0-15.0 [facility] Comment on above: Performed By: #### K U #### [facility] [address] [address] [address] Lisa Martinez Hematocrit (Bld) [Volume fraction] 31.9 % Critically low 36.0-48.0 [facility] Comment on above: Performed By: #### K U #### [facility] [address] [address] [address] Lisa Martinez Hemoglobin (Bld) [Mass/Vol] 9.8 g/dL Critically low 12.0-16.0 [facility] Comment on above: Performed By: #### K U #### [facility] [address] [place] [address] Dr. Lisa Martinez IG # 0.02 10e3/ul Normal 0.00-0.03 [facility] Comment on above: Performed By: #### K U #### [facility] [address] [place] [address] Dr. Lisa Martinez IG % 0.3 % Normal 0.0-0.5 [facility] Comment on above: Performed By: #### K U #### [facility] [address] [place] [address] Dr. Lisa Martinez LYMPH # 0.7 103/ul Critically low 1.2-3.8 [facility] Comment on above: Performed By: #### K U #### [facility] [address] [place] [address] Dr. Lisa Martinez Lymphocytes/100 WBC (Bld) 10.9 % Critically low 20.5-60.0 [facility] Comment on above: Performed By: #### K U #### [facility] [address] [place] [address] Dr. Lisa Martinez MANUAL DIFF REQ NO Normal [facility] Comment on above: Performed By: #### K U #### [facility] [address] [place] [address] Dr. Lisa Martinez MCH (RBC) [Entitic mass] 29.1 pg Normal 26.7-34.0 [facility] Comment on above: Performed By: #### K U #### [facility] [address] [address] [address] Lisa Martinez MCHC (RBC) [Mass/Vol] 30.7 g/dL Normal 29.9-35.2 [facility] Comment on above: Performed By: #### K U #### [facility] [address] [place] [address] Dr. Lisa Martinez MCV (RBC) [Entitic vol] 94.7 fL Normal 81.0-99.0 [facility] Comment on above: Performed By: #### K U #### [facility] [address] [place] [address] Dr. Lisa Martinez MONO # 0.8 103/ul Normal 0.3-0.8 [facility] Comment on above: Performed By: #### K U #### [facility] [address] [place] [address] Dr. Lisa Martinez Monocytes/100 WBC (Bld) 12.2 % Critically high 1.7-12.0 [facility] Comment on above: Performed By: #### K U #### [facility] [address] [place] [address] Dr. Lisa Martinez NEUT # 4.6 103/ul Normal 1.4-6.5 [facility] Comment on above: Performed By: #### K U #### [facility] [address] [place] [address] Dr. Lisa Martinez Neutrophils/100 WBC (Bld) 73.1 % Normal 43.0-75.0 [facility] Comment on above: Performed By: #### K U #### [facility] [address] [place] [address] Dr. Lisa Martinez Platelet mean volume (Bld) [Entitic vol] 10.2 fL Normal 9.5-13.5 [facility] Comment on above: Performed By: #### K U #### [facility] [address] [place] [address] Dr. Lisa Martinez PLT 186 103/ul Normal 150-450 [facility] Comment on above: Performed By: #### K U #### [facility] [address] [place] [address] Dr. Lisa Martinez RBC 3.37 106/ul Critically low 4.20-5.40 [facility] Comment on above: Performed By: #### K U #### [facility] [address] [place] [address] Dr. Lisa Martinez WBC 6.3 103/ul Normal 4.0-11.0 [facility] Comment on above: Performed By: #### K U #### [facility] [address] [place] [address] Dr. Lisa Martinez CHLORIDE URINE RANDOMon 11-06 Chloride, Urine 126 mmol/L Normal Not Estab. [facility] Comment on above: Performed By: #### B LDCX2 #### [facility] [address] [place] [address] Dr. Lisa Martinez CULTURE URINEon 11-15-2022 CULTURE [...] Trimethoprim/Sulfametho xazole <=20 S F Normal [facility] Comment on above: Performed By: #### U RCX #### [facility] [address] [place] [address] Dr. Lisa Martinez DIGOXINon 11-15-2022 DIG 0.3 ng/mL Critically low 0.9-2.0 [facility] Comment on above: Performed By: #### B BIOFUELS TECHNOLOGY DEVELOPMENT MANAGER, BMP #### [facility] [address] [place] [address] Dr. Lisa Martinez MAGNESIUMon 11-15-2022 Magnesium [Mass/Vol] 2.2 mg/dL Normal 1.8-2.4 [facility] Comment on above: Performed By: #### B BIOFUELS TECHNOLOGY DEVELOPMENT MANAGER, CMP, MG ####[facility] [address] [address]Dr. Lisa Martinez POINT OF CARE GLUCOSEon 11-06 Glucose [Mass/Vol] 164 mg/dL Critically high 74-106 T [facility] Comment on above: Performed By: #### C BC #### [facility] [address] [address] [address] Lisa Martinez PROF 14(COMP METB)on 023 Albumin [Mass/Vol] 3.3 g/dL Critically low 3.4-5.0 [facility] Comment on above: Performed By: #### B BIOFUELS TECHNOLOGY DEVELOPMENT MANAGER, CMP, MG ####[facility] [address] [address]Dr. Lisa Martinez Albumin/Globulin [Mass ratio] 0.7 {ratio} Normal [facility] Comment on above: Performed By: #### B BIOFUELS TECHNOLOGY DEVELOPMENT MANAGER, CMP, MG ####[facility] [address] [address]Dr. Lisa Martinez ALP [Catalytic activity/Vol] 75 U/L Normal 46-116 [facility] Comment on above: Performed By: #### B BIOFUELS TECHNOLOGY DEVELOPMENT MANAGER, CMP, MG ####[facility] [address] [address]Dr. Lisa Martinez ALT [Catalytic activity/Vol] 14 U/L Normal 14-59 [facility] Comment on above: Performed By: #### B BIOFUELS TECHNOLOGY DEVELOPMENT MANAGER, CMP, MG ####[facility] [address] [address]Dr. Lisa Martinez Anion gap [Moles/Vol] 11.1 mmol/L Normal [facility] Comment on above: Performed By: #### B BIOFUELS TECHNOLOGY DEVELOPMENT MANAGER, CMP, MG ####[facility] [address] [address]Dr. Lisa Martinez AST [Catalytic activity/Vol] 14 U/L Critically low 15-37 [facility] Comment on above: Performed By: #### B BIOFUELS TECHNOLOGY DEVELOPMENT MANAGER, CMP, MG ####[facility] [address] [address]Dr. Lisa Martinez Bilirubin [Mass/Vol] 0.9 mg/dL Normal 0.2-1.0 [facility] Comment on above: Performed By: #### B BIOFUELS TECHNOLOGY DEVELOPMENT MANAGER, CMP, MG ####[facility] [address] [address]Dr. Lisa Martinez Calcium [Mass/Vol] 9.1 mg/dL Normal 8.5-10.1 [facility] Comment on above: Performed By: #### B BIOFUELS TECHNOLOGY DEVELOPMENT MANAGER, CMP, MG ####[facility] [address] [address]Dr. Lisa Martinez Chloride [Moles/Vol] 100 mmol/L Normal 98-107 [facility] Comment on above: Performed By: #### B BIOFUELS TECHNOLOGY DEVELOPMENT MANAGER, CMP, MG ####[facility] [address] [address]Dr. Lisa Martinez CO2 [Moles/Vol] 32.6 mmol/L Critically high 21.0-32.0 [facility] Comment on above: Performed By: #### B BIOFUELS TECHNOLOGY DEVELOPMENT MANAGER, CMP, MG ####[facility] [address] [address]Dr. Lisa Martinez Creatinine [Mass/Vol] 2.65 mg/dL Critically high 0.55-1.02 [facility] Comment on above: Performed By: #### B BIOFUELS TECHNOLOGY DEVELOPMENT MANAGER, CMP, MG ####[facility] [address] [place], [place] [address]Dr. Lisa Martinez EGFR-AF CZECH 21 mL/min/1.73m2 Critically low >=60 [facility] Comment on above: Performed By: #### B BIOFUELS TECHNOLOGY DEVELOPMENT MANAGER, CMP, MG ####[facility] [address] [place], [place] [address]Dr. Lisa Martinez EGFR-NON AF CZECH 17 mL/min/1.73m2 Critically low >=60 [facility] Comment on above: Performed By: #### B BIOFUELS TECHNOLOGY DEVELOPMENT MANAGER, CMP, MG ####[facility] [address] [address]Dr. Lisa Martinez Globulin (S) [Mass/Vol] 4.7 g/dL Normal [facility] Comment on above: Performed By: #### B BIOFUELS TECHNOLOGY DEVELOPMENT MANAGER, CMP, MG ####[facility] [address] [address]Dr. Lisa Martinez Glucose [Mass/Vol] 131 mg/dL Critically high 74-106 T [facility] Comment on above: Performed By: #### B BIOFUELS TECHNOLOGY DEVELOPMENT MANAGER, CMP, MG ####[facility] [address] [address]Dr. Lisa Martinez Potassium [Moles/Vol] 3.7 mmol/L Normal 3.5-5.1 [facility] Comment on above: Performed By: #### B BIOFUELS TECHNOLOGY DEVELOPMENT MANAGER, CMP, MG ####[facility] [address] [place], [place] [address]Dr. Lisa Martinez Protein [Mass/Vol] 8.0 g/dL Normal 6.4-8.2 [facility] Comment on above: Performed By: #### B BIOFUELS TECHNOLOGY DEVELOPMENT MANAGER, CMP, MG ####[facility] [address] [place], [place] [address]Dr. Lisa Martinez Sodium [Moles/Vol] 140 mmol/L Normal 136-145 [facility] Comment on above: Performed By: #### B BIOFUELS TECHNOLOGY DEVELOPMENT MANAGER, CMP, MG ####[facility] [address] [address]Dr. Lisa Martinez Urea nitrogen [Mass/Vol] 66.0 mg/dL Critically high 7.0-18.0 [facility] Comment on above: Performed By: #### B BIOFUELS TECHNOLOGY DEVELOPMENT MANAGER, CMP, MG ####[facility] [address] [address]Dr. Lisa Martinez Urea nitrogen/Creatinin e [Mass ratio] 24.9 mg/mg Normal [facility] Comment on above: Performed By: #### B BIOFUELS TECHNOLOGY DEVELOPMENT MANAGER, CMP, MG ####[facility] [address] [address]Dr. Lisa Martinez UREA NITROGEN, RANDOM URon 0 11-15-2022 Urea Nitrogen, Urine 165 mg/dL Normal Not Estab. [facility] Comment on above: Performed By: #### U NR ####[facility] [address] [id number]. Lisa Martinez BNPon 11-14-2022 Natriuretic peptide B (Bld) [Mass/Vol] 8525.0 pg/mL Critically high <=1,800.0 [facility] Comment on above: Performed By: #### B BIOFUELS TECHNOLOGY DEVELOPMENT MANAGER ####[facility] [address] [address]Dr. Lisa Martinez CBC AUTO DIFFon 11-14-2022 BASO # 0.0 103/ul Normal 0.0-0.1 [facility] Comment on above: Performed By: #### C VDTBH #### [facility] [address] [place] [address] Dr. Lisa Martinez Basophils/100 WBC (Bld) 0.5 % Normal 0.2-2.0 [facility] Comment on above: Performed By: #### C VDTBH #### [facility] [address] [place] [address] Dr. Lisa Martinez EO # 0.2 103/ul Normal 0.0-0.7 [facility] Comment on above: Performed By: #### C VDTBH #### [facility] [address] [place] [address] Dr. Lisa Martinez Eosinophils/100 WBC (Bld) 3.4 % Normal 0.9-7.0 [facility] Comment on above: Performed By: #### C VDTBH #### [facility] [address] [place] [address] Dr. Lisa Mratinez Erythrocyte distribution width (RBC) [Ratio] 14.9 % Normal 11.0-15.0 [facility] Comment on above: Performed By: #### C VDTBH #### [facility] [address] [place] [address] Dr. Lisa Martinez Hematocrit (Bld) [Volume fraction] 31.3 % Critically low 36.0-48.0 [facility] Comment on above: Performed By: #### C VDTBH #### [facility] [address] [place] [address] Dr. Lisa Martinez Hemoglobin (Bld) [Mass/Vol] 9.4 g/dL Critically low 12.0-16.0 [facility] Comment on above: Performed By: #### C VDTBH #### [facility] [address] [place] [address] Dr. Lisa Martinez IG # 0.01 10e3/ul Normal 0.00-0.03 [facility] Comment on above: Performed By: #### C VDTBH #### [facility] [address] [place] [address] Dr. Lisa Martinez IG % 0.2 % Normal 0.0-0.5 [facility] Comment on above: Performed By: #### C VDTBH #### [facility] [address] [place] [address] Dr. Lisa Martinez LYMPH # 0.9 103/ul Critically low 1.2-3.8 [facility] Comment on above: Performed By: #### C VDTBH #### [facility] [address] [place] [address] Dr. Lisa Martinez Lymphocytes/100 WBC (Bld) 15.2 % Critically low 20.5-60.0 [facility] Comment on above: Performed By: #### C VDTBH #### [facility] [address] [place] [address] Dr. Lisa Martinez MANUAL DIFF REQ NO Normal [facility] Comment on above: Performed By: #### C VDTBH #### [facility] [address] [place] [address] Dr. Lisa Martinez MCH (RBC) [Entitic mass] 29.0 pg Normal 26.7-34.0 [facility] Comment on above: Performed By: #### C VDTBH #### [facility] [address] [place] [address] Dr. Lisa Martinez MCHC (RBC) [Mass/Vol] 30.0 g/dL Normal 29.9-35.2 [facility] Comment on above: Performed By: #### C VDTBH #### [facility] [address] [place] [address] Dr. Lisa Martinez MCV (RBC) [Entitic vol] 96.6 fL Normal 81.0-99.0 [facility] Comment on above: Performed By: #### C VDTB #### [facility] [address] [place] [address] Dr. Lisa Martinez MONO # 0.6 103/ul Normal 0.3-0.8 [facility] Comment on above: Performed By: #### C VDTBH #### [facility] [address] [address] [address] Lisa Martinez Monocytes/100 WBC (Bld) 10.2 % Normal 1.7-12.0 [facility] Comment on above: Performed By: #### C VDTBH #### [facility] [address] [place] [address] Dr. Lisa Martinez NEUT # 4.0 103/ul Normal 1.4-6.5 [facility] Comment on above: Performed By: #### C VDTB #### [facility] [address] [place] [address] Dr. Lisa Martinez Neutrophils/100 WBC (Bld) 70.5 % Normal 43.0-75.0 [facility] Comment on above: Performed By: #### C VDTBH #### [facility] [address] [place] [address] Dr. Lisa Martinez Platelet mean volume (Bld) [Entitic vol] 10.3 fL Normal 9.5-13.5 [facility] Comment on above: Performed By: #### C VDTBH #### [facility] [address] [place] [address] Dr. Lisa Martinez PLT 192 103/ul Normal 150-450 [facility] Comment on above: Performed By: #### C VDTBH #### [facility] [address] [place] [address] Dr. Lisa Martinez RBC 3.24 106/ul Critically low 4.20-5.40 [facility] Comment on above: Performed By: #### C VDTBH #### [facility] [address] [place] [address] Dr. Lisa Martinez WBC 5.7 103/ul Normal 4.0-11.0 [facility] Comment on above: Performed By: #### C VDTBH #### [facility] [address] [address] [address] Lisa Martinez D-DIMERon 11-14-2022 D-DIMER 0.82 mg/L FEU Critically high <=0.59 [facility] Comment on above: Performed By: #### B BIOFUELS TECHNOLOGY DEVELOPMENT MANAGER, BMP #### [facility] [address] [address] [address] Lisa Martinez D-DIMER COMMENTS SEE BELOW Normal [facility] Comment on above: Result Comment: Incr eases [...] and generalized hospitalization. Performed By: #### B BIOFUELS TECHNOLOGY DEVELOPMENT MANAGER, BMP #### [facility] [address] [place] [address] Dr. Lisa Martinez ECHO LIMITED STUDYon 023 ECHO LIMITED STUDY Patient: URSZULA VILLEGAS Exam Date: 11/14/2022 : 1940 Gender:F Ordering : DR ROBERTO ZIMMERMAN . Admission #: [id number] Family : Order #: [id number] CLICK HERE TO VIEW EXAM ECHOCARDIOGRAM REPORT [...] M.D. on 11/14/2022 at 16:43 Normal [facility] MAGNESIUMon 11-14-2022 Magnesium [Mass/Vol] 2.3 mg/dL Normal 1.8-2.4 [facility] Comment on above: Performed By: #### U RCX #### [facility] [address] [place] [address] Dr. Lisa Martinez NM LUNG VENT_PERFon 11-15-19 [...] by: SADIE GARCIA Date: 2022-11-14 19:11 Normal [facility] OCC BLD IMMUNO SCREENon OCCULT BLOOD Negative Normal NEGATIVE [facility] Comment on above: Performed By: #### B LDCX2 #### [facility] [address] [place] [address] Dr. Lisa Martinez POINT OF CARE GLUCOSEon Glucose [Mass/Vol] 155 mg/dL Critically high 74-106 [facility] Comment on above: Performed By: #### P OCGLUC ####[facility] [address] [address]Dr. Lisa Martinez Glucose [Mass/Vol] 148 mg/dL Critically high 74-106 [facility] Comment on above: Performed By: #### B LDCX2 #### [facility] [address] [address] [address] Lisa Martinez Glucose [Mass/Vol] 76 mg/dL Normal 74-106 [facility] Comment on above: Performed By: #### B LDCX2 #### [facility] [address] [address] [address] Lsia Martinez POTASSIUM URINEon 11-14-2022 UR POTASSIUM 21.3 mmol/L Normal [facility] Comment on above: Performed By: #### K U #### [facility] [address] [place] [address] Dr. Lisa Martinez PROF 14(COMP METB)on 023 Albumin [Mass/Vol] 3.3 g/dL Critically low 3.4-5.0 [facility] Comment on above: Performed By: #### U RCX #### [facility] [address] [address] [address] Lisa Martinez Albumin/Globulin [Mass ratio] 0.7 {ratio} Normal [facility] Comment on above: Performed By: #### U RCX #### [facility] [address] [address] [address] Lisa Martinez ALP [Catalytic activity/Vol] 72 U/L Normal 46-116 [facility] Comment on above: Performed By: #### U RCX #### [facility] [address] [address] [address] Lisa Martinez ALT [Catalytic activity/Vol] 16 U/L Normal 14-59 [facility] Comment on above: Performed By: #### U RCX #### [facility] [address] [address] [address] Lisa Martinez Anion gap [Moles/Vol] 13.0 mmol/L Normal [facility] Comment on above: Performed By: #### U RCX #### [facility] [address] [address] [address] Lisa Martinez AST [Catalytic activity/Vol] 13 U/L Critically low 15-37 [facility] Comment on above: Performed By: #### U RCX #### [facility] [address] [address] [address] Lisa Martinez Bilirubin [Mass/Vol] 0.8 mg/dL Normal 0.2-1.0 [facility] Comment on above: Performed By: #### U RCX #### [facility] [address] [address] [address] Lisa Martinez Calcium [Mass/Vol] 9.0 mg/dL Normal 8.5-10.1 [facility] Comment on above: Performed By: #### U RCX #### [facility] [address] [address] [address] Lisa Martinez Chloride [Moles/Vol] 100 mmol/L Normal 98-107 [facility] Comment on above: Performed By: #### U RCX #### [facility] [address] [address] [address] Lisa Martinez CO2 [Moles/Vol] 30.0 mmol/L Normal 21.0-32.0 [facility] Comment on above: Performed By: #### U RCX #### [facility] [address] [address] [address] Lisa Martinez Creatinine [Mass/Vol] 2.79 mg/dL Critically high 0.55-1.02 [facility] Comment on above: Performed By: #### U RCX #### [facility] [address] [address] [address] Lisa Martinez EGFR-AF CZECH 20 mL/min/1.73m2 Critically low >=60 [facility] Comment on above: Performed By: #### U RCX #### [facility] [address] [address] [address] Lisa Martinez EGFR-NON AF CZECH 16 mL/min/1.73m2 Critically low >=60 [facility] Comment on above: Performed By: #### U RCX #### [facility] [address] [address] [address] Lisa Martinez Globulin (S) [Mass/Vol] 4.6 g/dL Normal [facility] Comment on above: Performed By: #### U RCX #### [facility] [address] [address] [address] Lisa Martinez Glucose [Mass/Vol] 153 mg/dL Critically high 74-106 [facility] Comment on above: Performed By: #### U RCX #### [facility] [address] [address] [address] Lisa Martinez Potassium [Moles/Vol] 4.0 mmol/L Normal 3.5-5.1 [facility] Comment on above: Performed By: #### U RCX #### [facility] [address] [address] [address] Lisa Martinez Protein [Mass/Vol] 7.9 g/dL Normal 6.4-8.2 [facility] Comment on above: Performed By: #### U RCX #### [facility] [address] [address] [address] Lisa Martinez Sodium [Moles/Vol] 139 mmol/L Normal 136-145 [facility] Comment on above: Performed By: #### U RCX #### [facility] [address] [address] [address] Lisa Martinez Urea nitrogen [Mass/Vol] 67.0 mg/dL Critically high 7.0-18.0 [facility] Comment on above: Performed By: #### U RCX #### [facility] [address] [address] [address] Lisa Martinez Urea nitrogen/Creatinin e [Mass ratio] 24.0 mg/mg Normal [facility] Comment on above: Performed By: #### U RCX #### [facility] [address] [place] [address] Dr. Lisa Martinez SODIUM RANDOM URINEon 2022 Sodium (U) [Moles/Vol] 122 mmol/L Critically high 30-90 [facility] Comment on above: Performed By: #### B BIOFUELS TECHNOLOGY DEVELOPMENT MANAGER, BMP #### [facility] [address] [address] [address] Lisa Martinez T3, TOTAL (TRIIODOTHYRONINE) on 11-14-2022 T3, TOTAL 84 ng/dL Normal 71-180 [facility] Comment on above: Performed By: #### U RCX #### [facility] [address] [address] [address] Lisa Martinez BNPon 11-13-2022 Natriuretic peptide B (Bld) [Mass/Vol] 60834.0 pg/mL Critically high <=1,800.0 [facility] Comment on above: Performed By: #### B MP, HSTROPN, BNP ####[facility] [address] [address]Dr. Lisa Martinez CARDIAC DONY 3-6on 3 CK [Catalytic activity/Vol] 60 U/L Normal 26-192 [facility] Comment on above: Performed By: #### C MREP ####[facility] [address] [id number]. Lisa Martinez CK.MB [Mass/Vol] 0.96 ng/mL Normal <=3.60 [facility] Comment on above: Performed By: #### C MREP ####[facility] [address] [id number]. Lisa Martinez HSTROP 16.3 pg/mL Normal 4.0-51.3 [facility] Comment on above: Result Comment: CUT- OFF POINTS HAVE BEEN ESTABLISHED BASED ON THE FOURTH UNIVERSAL DEFINITIONS OF MYOCARDIAL INFARCTION. THE UPPER REFERENCE LIMIT (URL) OF TROPONIN, DEFINED THE 99TH PERCENTILE OF cTnI DISTRIBUTION IN A REFERENCE POPULATION, HAS BEEN CONFIRMED THE DECISION THRESHOLD FOR [place] DIAGNOSIS. Performed By: #### C MREP ####[facility] [address] [address]Dr. Lisa Martinez CK [Catalytic activity/Vol] 60 U/L Normal 26-192 [facility] Comment on above: Performed By: #### C BC #### [facility] [address] [address] [address] Lisa Martinez CK.MB [Mass/Vol] 0.94 ng/mL Normal <=3.60 [facility] Comment on above: Performed By: #### C BC #### [facility] [address] [place] [address] Dr. Lisa Martinez HSTROP 15.1 pg/mL Normal 4.0-51.3 [facility] Comment on above: Result Comment: CUT- OFF POINTS HAVE BEEN ESTABLISHED BASED ON THE FOURTH UNIVERSAL DEFINITIONS OF MYOCARDIAL INFARCTION. THE UPPER REFERENCE LIMIT (URL) OF TROPONIN, DEFINED THE 99TH PERCENTILE OF cTnI DISTRIBUTION IN A REFERENCE POPULATION, HAS BEEN CONFIRMED THE DECISION THRESHOLD FOR [place] DIAGNOSIS. Performed By: #### C BC #### [facility] [address] [address] [address] Lisa Martinez CBC AUTO DIFFon 11-13-2022 BASO # 0.1 103/ul Normal 0.0-0.1 [facility] Comment on above: Performed By: #### C BC #### [facility] [address] [address] [address] Lisa Martinez Basophils/100 WBC (Bld) 0.6 % Normal 0.2-2.0 [facility] Comment on above: Performed By: #### C BC #### [facility] [address] [place] [address] Dr. Lisa Martinez EO # 0.2 103/ul Normal 0.0-0.7 [facility] Comment on above: Performed By: #### C BC #### [facility] [address] [address] [address] Lisa Martinez Eosinophils/100 WBC (Bld) 1.8 % Normal 0.9-7.0 [facility] Comment on above: Performed By: #### C BC #### [facility] [address] [place] [address] Dr. Lisa Martinez Erythrocyte distribution width (RBC) [Ratio] 15.0 % Normal 11.0-15.0 [facility] Comment on above: Performed By: #### C BC #### [facility] [address] [place] [address] Dr. Lisa Martinez Hematocrit (Bld) [Volume fraction] 32.9 % Critically low 36.0-48.0 [facility] Comment on above: Performed By: #### C BC #### [facility] [address] [place] [address] Dr. Lisa Martinez Hemoglobin (Bld) [Mass/Vol] 9.8 g/dL Critically low 12.0-16.0 [facility] Comment on above: Performed By: #### C BC #### [facility] [address] [place] [address] Dr. Lisa Martinez IG # 0.02 10e3/ul Normal 0.00-0.03 [facility] Comment on above: Performed By: #### C BC #### [facility] [address] [place] [address] Dr. Lisa Martinez IG % 0.2 % Normal 0.0-0.5 [facility] Comment on above: Performed By: #### C BC #### [facility] [address] [place] [address] Dr. Lisa Martinez LYMPH # 0.7 103/ul Critically low 1.2-3.8 [facility] Comment on above: Performed By: #### C BC #### [facility] [address] [place] [address] Dr. Lisa Martinez Lymphocytes/100 WBC (Bld) 7.8 % Critically low 20.5-60.0 [facility] Comment on above: Performed By: #### C BC #### [facility] [address] [place] [address] Dr. Lisa Martinez MANUAL DIFF REQ NO Normal [facility] Comment on above: Performed By: #### C BC #### [facility] [address] [place] [address] Dr. Lisa Martienz MCH (RBC) [Entitic mass] 29.4 pg Normal 26.7-34.0 [facility] Comment on above: Performed By: #### C BC #### [facility] [address] [place] [address] Dr. Lisa Martinez MCHC (RBC) [Mass/Vol] 29.8 g/dL Critically low 29.9-35.2 [facility] Comment on above: Performed By: #### C BC #### [facility] [address] [place] [address] Dr. Lisa Martinez MCV (RBC) [Entitic vol] 98.8 fL Normal 81.0-99.0 [facility] Comment on above: Performed By: #### C BC #### [facility] [address] [place] [address] Dr. Lisa Martinez MONO # 0.7 103/ul Normal 0.3-0.8 [facility] Comment on above: Performed By: #### C BC #### [facility] [address] [place] [address] Dr. Lisa Martinez Monocytes/100 WBC (Bld) 7.6 % Normal 1.7-12.0 [facility] Comment on above: Performed By: #### C BC #### [facility] [address] [place] [address] Dr. Lisa Martinez NEUT # 7.0 103/ul Critically high 1.4-6.5 [facility] Comment on above: Performed By: #### C BC #### [facility] [address] [place] [address] Dr. Lisa Martinez Neutrophils/100 WBC (Bld) 82.0 % Critically high 43.0-75.0 [facility] Comment on above: Performed By: #### C BC #### [facility] [address] [place] [address] Dr. Lisa Martinez Platelet mean volume (Bld) [Entitic vol] 10.6 fL Normal 9.5-13.5 [facility] Comment on above: Performed By: #### C BC #### [facility] [address] [place] [address] Dr. Lisa Martinez PLT 209 103/ul Normal 150-450 [facility] Comment on above: Performed By: #### C BC #### [facility] [address] [place] [address] Dr. Lisa Martinez RBC 3.33 106/ul Critically low 4.20-5.40 [facility] Comment on above: Performed By: #### C BC #### [facility] [address] [place] [address] Dr. Lisa Matrinez WBC 8.6 103/ul Normal 4.0-11.0 [facility] Comment on above: Performed By: #### C BC #### [facility] [address] [place] [address] Dr. Lisa Martinez LACTATE/LACTIC ACIDon 2022 Lactate [Moles/Vol] 3.4 mmol/L Critically high 0.4-2.0 [facility] Comment on above: Performed By: #### L ACT ####[facility] [address] [address]Dr. Lisa Martinez MAGNESIUMon 11-13-2022 Magnesium [Mass/Vol] 2.6 mg/dL Critically high 1.8-2.4 [facility] Comment on above: Performed By: #### B BIOFUELS TECHNOLOGY DEVELOPMENT MANAGER, BMP #### [facility] [address] [address] [address] Lisa Martinez PROF CHEM 8 (BAS METB)on Anion gap [Moles/Vol] 15.7 mmol/L Normal [facility] Comment on above: Performed By: #### C BC #### [facility] [address] [address] [address] Lisa Martinez Calcium [Mass/Vol] 9.1 mg/dL Normal 8.5-10.1 [facility] Comment on above: Performed By: #### C BC #### [facility] [address] [address] [address] Lisa Martinez Chloride [Moles/Vol] 103 mmol/L Normal 98-107 [facility] Comment on above: Performed By: #### C BC #### [facility] [address] [address] [address] Lisa Martinez CO2 [Moles/Vol] 27.2 mmol/L Normal 21.0-32.0 [facility] Comment on above: Performed By: #### C BC #### [facility] [address] [address] [address] Lisa Martinez Creatinine [Mass/Vol] 2.91 mg/dL Critically high 0.55-1.02 [facility] Comment on above: Performed By: #### C BC #### [facility] [address] [address] [address] Lisa Martinez EGFR-AF CZECH 19 mL/min/1.73m2 Critically low >=60 [facility] Comment on above: Performed By: #### C BC #### [facility] [address] [address] [address] Lisa Martinez EGFR-NON AF CZECH 15 mL/min/1.73m2 Critically low >=60 [facility] Comment on above: Performed By: #### C BC #### [facility] [address] [address] [address] Lisa Martinez Glucose [Mass/Vol] 172 mg/dL Critically high 74-106 [facility] Comment on above: Performed By: #### C BC #### [facility] [address] [address] [address] Lisa Martinez Potassium [Moles/Vol] 4.9 mmol/L Normal 3.5-5.1 [facility] Comment on above: Performed By: #### C BC #### [facility] [address] [address] [address] Lisa Martinez Sodium [Moles/Vol] 141 mmol/L Normal 136-145 [facility] Comment on above: Performed By: #### C BC #### [facility] [address] [address] [address] Lisa Martinez Urea nitrogen [Mass/Vol] 64.0 mg/dL Critically high 7.0-18.0 [facility] Comment on above: Performed By: #### C BC #### [facility] [address] [address] [address] Lisa Martinez Urea nitrogen/Creatinin e [Mass ratio] 22.0 mg/mg Normal [facility] Comment on above: Performed By: #### C BC #### [facility] [address] [address] [address] Lisa Martinez Anion gap [Moles/Vol] 17.4 mmol/L Normal [facility] Comment on above: Performed By: #### B NUHA HSTROPN, BNP ####[facility] [address] [address]DrIngrid Martinez Calcium [Mass/Vol] 9.1 mg/dL Normal 8.5-10.1 [facility] Comment on above: Performed By: #### B MP, HSTROPN, BNP ####[facility] [address] [address]DrIngrid Martinez Chloride [Moles/Vol] 104 mmol/L Normal 98-107 [facility] Comment on above: Performed By: #### B MP, HSTROPN, BNP ####[facility] [address] [address]Dr. Lisa Martinez CO2 [Moles/Vol] 26.9 mmol/L Normal 21.0-32.0 [facility] Comment on above: Performed By: #### B MP, HSTROPN, BNP ####[facility] [address] [address]Dr. Lisa Martinez Creatinine [Mass/Vol] 3.12 mg/dL Critically high 0.55-1.02 [facility] Comment on above: Performed By: #### B MP, HSTROPN, BNP ####[facility] [address] [address]Dr. Lisa Martinez EGFR-AF CZECH 17 mL/min/1.73m2 Critically low >=60 [facility] Comment on above: Performed By: #### B MP, HSTROPN, BNP ####[facility] [address] [place], [place] [address]Dr. Lisa Martinez EGFR-NON AF CZECH 14 mL/min/1.73m2 Critically low >=60 [facility] Comment on above: Performed By: #### B MP, HSTROPN, BNP ####[facility] [address] [place], [place] [address]Dr. Lisa Martinez Glucose [Mass/Vol] 131 mg/dL Critically high 74-106 [facility] Comment on above: Performed By: #### B MP, HSTROPN, BNP ####[facility] [address] [address]Dr. Lisa Martinez Potassium [Moles/Vol] 5.3 mmol/L Critically high 3.5-5.1 [facility] Comment on above: Performed By: #### B MP, HSTROPN, BNP ####[facility] [address] [place] [address]Dr. Lisa Martinez Sodium [Moles/Vol] 143 mmol/L Normal 136-145 The [facility] Comment on above: Performed By: #### B MP, HSTROPN, BNP ####[facility] [address] [place], [place] [address]Dr. Lisa Martinez Urea nitrogen [Mass/Vol] 59.0 mg/dL Critically high 7.0-18.0 [facility] Comment on above: Performed By: #### B MP, HSTROPN, BNP ####[facility] [address] [place], [place] [address]TpDr. Lisa Martinez Urea nitrogen/Creatinin e [Mass ratio] 18.9 mg/mg Normal [facility] Comment on above: Performed By: #### B MP, HSTROPN, BNP ####[facility] [address] [place], [place] [address]CjDr. Lisa Martinez SYMPTOMATIC COVID-19 ANTIGEN on 11-13-2022 EUA Statement SEE BELOW Normal [facility] Comment on above: Result Comment: This [...] sooner. Performed By: #### C VDTBH #### [facility] [address] [place] [address] Dr. Lisa Martinez SARS-CoV-2 (COVID-19) RNA RACIEL+probe Ql (Unsp spec) Negative Normal NEGATIVE [facility] Comment on above: Performed By: #### C VDTBH #### [facility] [address] [place] [address] Dr. Lisa Martinez T4on 11-13-2022 T4 [Mass/Vol] 6.70 ug/dL Normal 4.80-13.90 The [facility] Comment on above: Performed By: #### B BIOFUELS TECHNOLOGY DEVELOPMENT MANAGER, BMP #### [facility] [address] [place] [address] Dr. Lisa Martinez TROPONIN, HIGH SENSITIVITYon 11-13-2022 HSTROP 17.9 pg/mL Normal 4.0-51.3 The [facility] Comment on above: Result Comment: CUT- OFF POINTS HAVE BEEN ESTABLISHED BASED ON THE FOURTH UNIVERSAL DEFINITIONS OF MYOCARDIAL INFARCTION. THE UPPER REFERENCE LIMIT (URL) OF TROPONIN, DEFINED THE 99TH PERCENTILE OF cTnI DISTRIBUTION IN A REFERENCE POPULATION, HAS BEEN CONFIRMED THE DECISION THRESHOLD FOR [place] DIAGNOSIS. Performed By: #### B MP, HSTROPN, BNP ####[facility] [address] [place] [address]Dr. Lisa Martinez TSHon 11-13-2022 TSH 5.233 uIU/mL Critically high 0.358-3.740 [facility] Comment on above: Performed By: #### B BIOFUELS TECHNOLOGY DEVELOPMENT MANAGER, BMP #### [facility] [address] [place] [address] Dr. Lisa Martinez UA RANDOM W/MICROSCOPICon BACTERIA SMALL Abnormal NONE SEEN [facility] Comment on above: Performed By: #### K U #### [facility] [address] [place] [address] Dr. Lisa Martinez Bilirubin Ql (U) Negative Normal NEGATIVE [facility] Comment on above: Performed By: #### K U #### [facility] [address] [place] [address] Dr. Lisa Martinez CAST SEEN Abnormal NONE [facility] Comment on above: Performed By: #### K U #### [facility] [address] [place] [address] Dr. Lisa Martinez Clarity (U) CLEAR Normal CLEAR [facility] Comment on above: Performed By: #### K U #### [facility] [address] [place] [address] Dr. Lisa Martinez Color (U) LT. YELLOW Normal YELLOW [facility] Comment on above: Performed By: #### K U #### [facility] [address] [place] [address] Dr. Lisa Martinez Crystals LM Nom (Urine sed) NONE SEEN Normal NONE SEEN [facility] Comment on above: Performed By: #### K U #### [facility] [address] [place] [address] Dr. Lisa Martinez Epithelial cells LM Ql (Urine sed) FEW Abnormal NONE SEEN /RARE [facility] Comment on above: Performed By: #### K U #### [facility] [address] [place] [address] Dr. Lisa Martinez Glucose Ql (U) Negative Normal NEGATIVE The [facility] Comment on above: Performed By: #### K U #### [facility] [address] [address] [address] Lisa Martinez Hemoglobin Ql (U) Negative Normal NEGATIVE The [facility] Comment on above: Performed By: #### K U #### [facility] [address] [place] [address] Dr. Lisa Martinez HYALINE CAST FEW Normal [facility] Comment on above: Performed By: #### K U #### [facility] [address] [place] [address] Dr. Lisa Martinez Ketones Ql (U) Negative Normal NEGATIVE The [facility] Comment on above: Performed By: #### K U #### [facility] [address] [place] [address] Dr. Lisa Martinez LEUKOCYTES Negative Normal NEGATIVE [facility] Comment on above: Performed By: #### K U #### [facility] [address] [place] [address] Dr. Lisa Martinez MUCOUS NONE SEEN Normal NONE SEEN The [facility] Comment on above: Performed By: #### K U #### [facility] [address] [place] [address] Dr. Lisa Martinez Nitrite Ql (U) Negative Normal NEGATIVE The [facility] Comment on above: Performed By: #### K U #### [facility] [address] [place] [address] Dr. Lisa Martinez pH (U) 5.5 [pH] Normal 5-9 [facility] Comment on above: Performed By: #### K U #### [facility] [address] [place] [address] Dr. Lisa Martinez RBC NONE SEEN Abnormal 0-2 The [facility] Comment on above: Performed By: #### K U #### [facility] [address] [address] [address] Lisa Martinez SPEC GRAVITY 1.010 Normal 1.005-<=1.025 The [facility] Comment on above: Performed By: #### K U #### [facility] [address] [address] [address] Lisa Martinez UA PROTEIN Negative Normal NEGATIVE/ TRACE [facility] Comment on above: Performed By: #### K U #### [facility] [address] [place] [address] Dr. Lisa Martinez Urobilinogen Qn (U) 0.2 {Mike'U}/dL Normal 0.2 - 1.0 The [facility] Comment on above: Performed By: #### K U #### [facility] [address] [place] [address] Dr. Lisa Martinez WBC NONE SEEN Normal NONE SEEN The [facility] Comment on above: Performed By: #### K U #### [facility] [address] [place] [address] Dr. Lisa Martinez US KIDNEYS BLADDERon 023 [...] by: Gela ARANDA Date: 2022-11-13 16:01 Normal [facility] XR CHEST 1 Von 11-13-2022 XR [...] MEENA WOOTEN Date: 2022-11-13 12:20 Normal The [facility] PROF CHEM 8 (BAS METB)on Anion gap [Moles/Vol] 13.5 mmol/L Normal [facility] Comment on above: Performed By: #### B MP ####[facility] [address] [place] [address]Dr. Lisa Martinez Calcium [Mass/Vol] 9.2 mg/dL Normal 8.5-10.1 [facility] Comment on above: Performed By: #### B MP ####[facility] [address] [place] [address]Dr. Lisa Martinez Chloride [Moles/Vol] 108 mmol/L Critically high 98-107 [facility] Comment on above: Performed By: #### B MP ####[facility] [address] [place] [address]Dr. Lisa Martinez CO2 [Moles/Vol] 25.6 mmol/L Normal 21.0-32.0 The [facility] Comment on above: Performed By: #### B MP ####[facility] [address] [place] [address]Dr. Lisa Martinez Creatinine [Mass/Vol] 1.53 mg/dL Critically high 0.55-1.02 [facility] Comment on above: Performed By: #### B MP ####[facility] [address] [place] [address]Dr. Lisa Martinez EGFR-AF CZECH 39 mL/min/1.73m2 Critically low >=60 [facility] Comment on above: Performed By: #### B MP ####[facility] [address] [place] [id number] Martinez EGFR-NON AF CZECH 32 mL/min/1.73m2 Critically low >=60 [facility] Comment on above: Performed By: #### B MP ####[facility] [address] [place] [address]DrIngrid Martinez Glucose [Mass/Vol] 69 mg/dL Critically low 74-106 Th [facility] Comment on above: Performed By: #### B MP ####[facility] [address] [place] [address]DrIngrid Martinez Potassium [Moles/Vol] 5.1 mmol/L Normal 3.5-5.1 [facility] Comment on above: Performed By: #### B MP ####[facility] [address] [place] [address]Dr. Lisa Martinez Sodium [Moles/Vol] 142 mmol/L Normal 136-145 [facility] Comment on above: Performed By: #### B MP ####[facility] [address] [place] [id number]. Lisa Martinez Urea nitrogen [Mass/Vol] 32.0 mg/dL Critically high 7.0-18.0 [facility] Comment on above: Performed By: #### B MP ####[facility] [address] [place] [address]DrIngrid Martinez Urea nitrogen/Creatinin e [Mass ratio] 20.9 mg/mg Normal [facility] Comment on above: Performed By: #### B MP ####[facility] [address] [place] [address]Dr. Lisa Martinez BNPon 10-08-2022 Natriuretic peptide B (Bld) [Mass/Vol] 3489.0 pg/mL Critically high <=1,800.0 [facility] Comment on above: Performed By: #### B BIOFUELS TECHNOLOGY DEVELOPMENT MANAGER, BMP #### [facility] [address] [address] [address] Lisa Martinez CBC AUTO DIFFon 10-08-2022 BASO # 0.0 103/ul Normal 0.0-0.1 [facility] Comment on above: Performed By: #### B BIOFUELS TECHNOLOGY DEVELOPMENT MANAGER, BMP #### [facility] [address] [place] [address] Dr. Lisa Martinez Basophils/100 WBC (Bld) 0.6 % Normal 0.2-2.0 [facility] Comment on above: Performed By: #### B BIOFUELS TECHNOLOGY DEVELOPMENT MANAGER, BMP #### [facility] [address] [place] [address] Dr. Lisa Martinez EO # 0.2 103/ul Normal 0.0-0.7 [facility] Comment on above: Performed By: #### B BIOFUELS TECHNOLOGY DEVELOPMENT MANAGER, BMP #### [facility] [address] [place] [address] Dr. Lisa Martinez Eosinophils/100 WBC (Bld) 3.5 % Normal 0.9-7.0 [facility] Comment on above: Performed By: #### B BIOFUELS TECHNOLOGY DEVELOPMENT MANAGER, BMP #### [facility] [address] [place] [address] Dr. Lisa Martinez Erythrocyte distribution width (RBC) [Ratio] 15.5 % Critically high 11.0-15.0 [facility] Comment on above: Performed By: #### B BIOFUELS TECHNOLOGY DEVELOPMENT MANAGER, BMP #### [facility] [address] [place] [address] Dr. Lisa Martinez Hematocrit (Bld) [Volume fraction] 31.8 % Critically low 36.0-48.0 [facility] Comment on above: Performed By: #### B BIOFUELS TECHNOLOGY DEVELOPMENT MANAGER, BMP #### [facility] [address] [place] [address] Dr. Lisa Martinez Hemoglobin (Bld) [Mass/Vol] 9.8 g/dL Critically low 12.0-16.0 [facility] Comment on above: Performed By: #### B BIOFUELS TECHNOLOGY DEVELOPMENT MANAGER, BMP #### [facility] [address] [place] [address] Dr. Lisa Martinez IG # 0.02 10e3/ul Normal 0.00-0.03 [facility] Comment on above: Performed By: #### B BIOFUELS TECHNOLOGY DEVELOPMENT MANAGER, BMP #### [facility] [address] [address] [address] Lisa Martinez IG % 0.3 % Normal 0.0-0.5 [facility] Comment on above: Performed By: #### B BIOFUELS TECHNOLOGY DEVELOPMENT MANAGER, BMP #### [facility] [address] [address] [address] Lisa Martinez LYMPH # 0.9 103/ul Critically low 1.2-3.8 The [facility] Comment on above: Performed By: #### B BIOFUELS TECHNOLOGY DEVELOPMENT MANAGER, BMP #### [facility] [address] [place] [address] Dr. Lisa Martinez Lymphocytes/100 WBC (Bld) 14.0 % Critically low 20.5-60.0 [facility] Comment on above: Performed By: #### B BIOFUELS TECHNOLOGY DEVELOPMENT MANAGER, BMP #### [facility] [address] [place] [address] Dr. Lisa Martinez MANUAL DIFF REQ NO Normal The [facility] Comment on above: Performed By: #### B BIOFUELS TECHNOLOGY DEVELOPMENT MANAGER, BMP #### [facility] [address] [place] [address] Dr. Lisa Martinez MCH (RBC) [Entitic mass] 29.9 pg Normal 26.7-34.0 [facility] Comment on above: Performed By: #### B BIOFUELS TECHNOLOGY DEVELOPMENT MANAGER, BMP #### [facility] [address] [place] [address] Dr. Lisa Martinez MCHC (RBC) [Mass/Vol] 30.8 g/dL Normal 29.9-35.2 [facility] Comment on above: Performed By: #### B BIOFUELS TECHNOLOGY DEVELOPMENT MANAGER, BMP #### [facility] [address] [place] [address] Dr. Lisa Martinez MCV (RBC) [Entitic vol] 97.0 fL Normal 81.0-99.0 [facility] Comment on above: Performed By: #### B BIOFUELS TECHNOLOGY DEVELOPMENT MANAGER, BMP #### [facility] [address] [place] [address] Dr. Lisa Martinez MONO # 0.8 103/ul Normal 0.3-0.8 [facility] Comment on above: Performed By: #### B BIOFUELS TECHNOLOGY DEVELOPMENT MANAGER, BMP #### [facility] [address] [place] [address] Dr. Lisa Martinez Monocytes/100 WBC (Bld) 11.9 % Normal 1.7-12.0 [facility] Comment on above: Performed By: #### B BIOFUELS TECHNOLOGY DEVELOPMENT MANAGER, BMP #### [facility] [address] [place] [address] Dr. Lisa Martinez NEUT # 4.4 103/ul Normal 1.4-6.5 [facility] Comment on above: Performed By: #### B BIOFUELS TECHNOLOGY DEVELOPMENT MANAGER, BMP #### [facility] [address] [place] [address] Dr. Lisa Martinez Neutrophils/100 WBC (Bld) 69.7 % Normal 43.0-75.0 [facility] Comment on above: Performed By: #### B BIOFUELS TECHNOLOGY DEVELOPMENT MANAGER, BMP #### [facility] [address] [place] [address] Dr. Lisa Martinez Platelet mean volume (Bld) [Entitic vol] 10.3 fL Normal 9.5-13.5 [facility] Comment on above: Performed By: #### B BIOFUELS TECHNOLOGY DEVELOPMENT MANAGER, BMP #### [facility] [address] [place] [address] Dr. Lisa Martinez PLT 223 103/ul Normal 150-450 [facility] Comment on above: Performed By: #### B BIOFUELS TECHNOLOGY DEVELOPMENT MANAGER, BMP #### [facility] [address] [place] [address] Dr. Lisa Martinez RBC 3.28 106/ul Critically low 4.20-5.40 The [facility] Comment on above: Performed By: #### B BIOFUELS TECHNOLOGY DEVELOPMENT MANAGER, BMP #### [facility] [address] [place] [address] Dr. Lisa Martinez WBC 6.3 103/ul Normal 4.0-11.0 [facility] Comment on above: Performed By: #### B BIOFUELS TECHNOLOGY DEVELOPMENT MANAGER, BMP #### [facility] [address] [place] [address] Dr. Lisa Martinez DIGOXINon 10-08-2022 DIG 1.6 ng/mL Normal 0.9-2.0 [facility] Comment on above: Performed By: #### D IG ####[facility] [address] [place], [place] [address]RcDr. Lisa Martinez POINT OF CARE GLUCOSEon Glucose [Mass/Vol] 226 mg/dL Critically high 74-106 [facility] Comment on above: Performed By: #### P OCGLUC ####[facility] [address] [place], [place] [address]RbDr. Lisa Martinez Glucose [Mass/Vol] 107 mg/dL Critically high 74-106 [facility] Comment on above: Performed By: #### B LDCX2 #### [facility] [address] [address] [address] Lisa Martinez PROF CHEM 8 (BAS METB)on Anion gap [Moles/Vol] 11.7 mmol/L Normal [facility] Comment on above: Performed By: #### B BIOFUELS TECHNOLOGY DEVELOPMENT MANAGER, BMP #### [facility] [address] [address] [address] Lisa Martinez Calcium [Mass/Vol] 9.2 mg/dL Normal 8.5-10.1 [facility] Comment on above: Performed By: #### B BIOFUELS TECHNOLOGY DEVELOPMENT MANAGER, BMP #### [facility] [address] [address] [address] Lisa Martinez Chloride [Moles/Vol] 102 mmol/L Normal 98-107 [facility] Comment on above: Performed By: #### B BIOFUELS TECHNOLOGY DEVELOPMENT MANAGER, BMP #### [facility] [address] [address] [address] Lisa Martinez CO2 [Moles/Vol] 29.3 mmol/L Normal 21.0-32.0 [facility] Comment on above: Performed By: #### B BIOFUELS TECHNOLOGY DEVELOPMENT MANAGER, BMP #### [facility] [address] [address] [address] Lisa Martinez Creatinine [Mass/Vol] 1.27 mg/dL Critically high 0.55-1.02 [facility] Comment on above: Performed By: #### B BIOFUELS TECHNOLOGY DEVELOPMENT MANAGER, BMP #### [facility] [address] [address] [address] Lisa Martinez EGFR-AF CZECH 49 mL/min/1.73m2 Critically low >=60 [facility] Comment on above: Performed By: #### B BIOFUELS TECHNOLOGY DEVELOPMENT MANAGER, BMP #### [facility] [address] [place] [address] Dr. Lisa Martinez EGFR-NON AF CZECH 40 mL/min/1.73m2 Critically low >=60 [facility] Comment on above: Performed By: #### B BIOFUELS TECHNOLOGY DEVELOPMENT MANAGER, BMP #### [facility] [address] [address] [address] Lisa Martinez Glucose [Mass/Vol] 98 mg/dL Normal 74-106 [facility] Comment on above: Performed By: #### B BIOFUELS TECHNOLOGY DEVELOPMENT MANAGER, BMP #### [facility] [address] [place] [address] Dr. Lisa Martinez Potassium [Moles/Vol] 4.0 mmol/L Normal 3.5-5.1 [facility] Comment on above: Performed By: #### B BIOFUELS TECHNOLOGY DEVELOPMENT MANAGER, BMP #### [facility] [address] [place] [address] Dr. Lisa Martinez Sodium [Moles/Vol] 139 mmol/L Normal 136-145 [facility] Comment on above: Performed By: #### B BIOFUELS TECHNOLOGY DEVELOPMENT MANAGER, BMP #### [facility] [address] [place] [address] Dr. Lisa Martinez Urea nitrogen [Mass/Vol] 26.0 mg/dL Critically high 7.0-18.0 [facility] Comment on above: Performed By: #### B BIOFUELS TECHNOLOGY DEVELOPMENT MANAGER, BMP #### [facility] [address] [place] [address] Dr. Lisa Martinez Urea nitrogen/Creatinin e [Mass ratio] 20.5 mg/mg Normal [facility] Comment on above: Performed By: #### B BIOFUELS TECHNOLOGY DEVELOPMENT MANAGER, BMP #### [facility] [address] [place] [address] Dr. Lisa Martinez BNPon 10-07-2022 Natriuretic peptide B (Bld) [Mass/Vol] 6039.0 pg/mL Critically high <=1,800.0 [facility] Comment on above: Performed By: #### B BIOFUELS TECHNOLOGY DEVELOPMENT MANAGER ####[facility] [address] [place] [address]Dr. Lisa Martinez CBC AUTO DIFFon 10-07-2022 BASO # 0.1 103/ul Normal 0.0-0.1 [facility] Comment on above: Performed By: #### K U #### [facility] [address] [address] [address] Lisa Martinez Basophils/100 WBC (Bld) 0.7 % Normal 0.2-2.0 [facility] Comment on above: Performed By: #### K U #### [facility] [address] [address] [address] Lisa Martinez EO # 0.3 103/ul Normal 0.0-0.7 [facility] Comment on above: Performed By: #### K U #### [facility] [address] [address] [address] Lisa Martinez Eosinophils/100 WBC (Bld) 4.0 % Normal 0.9-7.0 [facility] Comment on above: Performed By: #### K U #### [facility] [address] [address] [address] Lisa Martinez Erythrocyte distribution width (RBC) [Ratio] 15.6 % Critically high 11.0-15.0 [facility] Comment on above: Performed By: #### K U #### [facility] [address] [address] [address] Lisa Martinez Hematocrit (Bld) [Volume fraction] 34.0 % Critically low 36.0-48.0 [facility] Comment on above: Performed By: #### K U #### [facility] [address] [address] [address] Lisa Martinez Hemoglobin (Bld) [Mass/Vol] 10.4 g/dL Critically low 12.0-16.0 [facility] Comment on above: Performed By: #### K U #### [facility] [address] [address] [address] Lisa Martinez IG # 0.02 10e3/ul Normal 0.00-0.03 [facility] Comment on above: Performed By: #### K U #### [facility] [address] [place] [address] Dr. Lisa Martinez IG % 0.3 % Normal 0.0-0.5 [facility] Comment on above: Performed By: #### K U #### [facility] [address] [place] [address] Dr. Lisa Martinez LYMPH # 1.0 103/ul Critically low 1.2-3.8 [facility] Comment on above: Performed By: #### K U #### [facility] [address] [place] [address] Dr. Lisa Martinez Lymphocytes/100 WBC (Bld) 14.9 % Critically low 20.5-60.0 [facility] Comment on above: Performed By: #### K U #### [facility] [address] [place] [address] Dr. Lisa Martinez MANUAL DIFF REQ NO Normal [facility] Comment on above: Performed By: #### K U #### [facility] [address] [place] [address] Dr. Lisa Martinez MCH (RBC) [Entitic mass] 29.8 pg Normal 26.7-34.0 [facility] Comment on above: Performed By: #### K U #### [facility] [address] [place] [address] Dr. Lisa Martinez MCHC (RBC) [Mass/Vol] 30.6 g/dL Normal 29.9-35.2 [facility] Comment on above: Performed By: #### K U #### [facility] [address] [place] [address] Dr. Lisa Martinez MCV (RBC) [Entitic vol] 97.4 fL Normal 81.0-99.0 [facility] Comment on above: Performed By: #### K U #### [facility] [address] [place] [address] Dr. Lisa Martinez MONO # 0.6 103/ul Normal 0.3-0.8 [facility] Comment on above: Performed By: #### K U #### [facility] [address] [place] [address] Dr. Lisa Martinez Monocytes/100 WBC (Bld) 8.8 % Normal 1.7-12.0 [facility] Comment on above: Performed By: #### K U #### [facility] [address] [place] [address] Dr. Lisa Martinez NEUT # 4.9 103/ul Normal 1.4-6.5 [facility] Comment on above: Performed By: #### K U #### [facility] [address] [place] [address] Dr. Lisa Martinez Neutrophils/100 WBC (Bld) 71.3 % Normal 43.0-75.0 [facility] Comment on above: Performed By: #### K U #### [facility] [address] [place] [address] Dr. Lisa Martinez Platelet mean volume (Bld) [Entitic vol] 10.5 fL Normal 9.5-13.5 [facility] Comment on above: Performed By: #### K U #### [facility] [address] [place] [address] Dr. Lisa Martinez PLT 251 103/ul Normal 150-450 [facility] Comment on above: Performed By: #### K U #### [facility] [address] [place] [address] Dr. Lisa Martinez RBC 3.49 106/ul Critically low 4.20-5.40 [facility] Comment on above: Performed By: #### K U #### [facility] [address] [place] [address] Dr. Lisa Martinez WBC 6.8 103/ul Normal 4.0-11.0 [facility] Comment on above: Performed By: #### K U #### [facility] [address] [place] [address] Dr. Lisa Martinez DIGOXINon 10-07-2022 DIG 1.7 ng/mL Normal 0.9-2.0 [facility] Comment on above: Performed By: #### U RCX #### [facility] [address] [place] [address] Dr. Lisa Martinez POINT OF CARE GLUCOSEon 04-0 Glucose [Mass/Vol] 185 mg/dL Critically high 74-106 [facility] Comment on above: Performed By: #### B BIOFUELS TECHNOLOGY DEVELOPMENT MANAGER, BMP #### [facility] [address] [address] [address] Lisa Martinez Glucose [Mass/Vol] 120 mg/dL Critically high -106 [facility] Comment on above: Performed By: #### C VDTBH #### [facility] [address] [place] [address] Dr. Lisa Martinez Glucose [Mass/Vol] 218 mg/dL Critically high -106 [facility] Comment on above: Performed By: #### B LDCX2 #### [facility] [address] [place] [address] Dr. Lisa Martinez PROF CHEM 8 (BAS METB)on Anion gap [Moles/Vol] 12.3 mmol/L Normal [facility] Comment on above: Performed By: #### B BIOFUELS TECHNOLOGY DEVELOPMENT MANAGER, BMP #### [facility] [address] [place] [address] Dr. Lisa Martinez Calcium [Mass/Vol] 9.3 mg/dL Normal 8.5-10.1 [facility] Comment on above: Performed By: #### B BIOFUELS TECHNOLOGY DEVELOPMENT MANAGER, BMP #### [facility] [address] [place] [address] Dr. Lisa Martinez Chloride [Moles/Vol] 102 mmol/L Normal 98-107 [facility] Comment on above: Performed By: #### B BIOFU[employer]S TECHNOLOGY DEVELOPMENT MANAGER, BMP #### [facility] [address] [place] [address] Dr. Lisa Martinez CO2 [Moles/Vol] 30.8 mmol/L Normal 21.0-32.0 [facility] Comment on above: Performed By: #### B BIO[employer] TECHNOLOGY DEVELOPMENT MANAGER, BMP #### [facility] [address] [place] [address] Dr. Lisa Martinez Creatinine [Mass/Vol] 1.45 mg/dL Critically high 0.55-1.02 [facility] Comment on above: Performed By: #### B BIOFUELS TECHNOLOGY DEVELOPMENT MANAGER, BMP #### [facility] [address] [address] [address] Lisa Martinez EGFR-AF CZECH 42 mL/min/1.73m2 Critically low >=60 [facility] Comment on above: Performed By: #### B BIOFUELS TECHNOLOGY DEVELOPMENT MANAGER, BMP #### [facility] [address] [address] [address] Lisa Martinez EGFR-NON AF CZECH 34 mL/min/1.73m2 Critically low >=60 [facility] Comment on above: Performed By: #### B BIOFUELS TECHNOLOGY DEVELOPMENT MANAGER, BMP #### [facility] [address] [address] [address] Lisa Martinez Glucose [Mass/Vol] 103 mg/dL Normal 74-106 [facility] Comment on above: Performed By: #### B BIOFUELS TECHNOLOGY DEVELOPMENT MANAGER, BMP #### [facility] [address] [place] [address] Dr. Lisa Martinez Potassium [Moles/Vol] 4.1 mmol/L Normal 3.5-5.1 [facility] Comment on above: Performed By: #### B BIO[employer]ELS TECHNOLOGY DEVELOPMENT MANAGER, BMP #### [facility] [address] [address] [address] Lisa Martinez Sodium [Moles/Vol] 141 mmol/L Normal 136-145 [facility] Comment on above: Performed By: #### B BIOFUELS TECHNOLOGY DEVELOPMENT MANAGER, BMP #### [facility] [address] [address] [address] Lisa Martinez Urea nitrogen [Mass/Vol] 26.0 mg/dL Critically high 7.0-18.0 [facility] Comment on above: Performed By: #### B BIOFUELS TECHNOLOGY DEVELOPMENT MANAGER, BMP #### [facility] [address] [address] [address] Lisa Martinez Urea nitrogen/Creatinin e [Mass ratio] 17.9 mg/mg Normal [facility] Comment on above: Performed By: #### B BIOFUELS TECHNOLOGY DEVELOPMENT MANAGER, BMP #### [facility] [address] [address] [address] Lisa Martinez BNPon 10-06-2022 Natriuretic peptide B (Bld) [Mass/Vol] 6211.0 pg/mL Critically high <=1,800.0 [facility] Comment on above: Performed By: #### C MADM, LIVER, CMP, BNP ####[facility] [address] [address]DrIngrid Martinez CARDIAC DONY ADMITon 023 CK [Catalytic activity/Vol] 50 U/L Normal 26-192 [facility] Comment on above: Performed By: #### C MADM, LIVER, CMP, BNP ####[facility] [address] [address]DrIngrid Martinez CK.MB [Mass/Vol] 0.89 ng/mL Normal <=3.60 [facility] Comment on above: Performed By: #### C MADM, LIVER, CMP, BNP ####[facility] [address] [address]DrIngrid Martinez HSTROP 19.1 pg/mL Normal 4.0-51.3 [facility] Comment on above: Result Comment: CUT- OFF POINTS HAVE BEEN ESTABLISHED BASED ON THE FOURTH UNIVERSAL DEFINITIONS OF MYOCARDIAL INFARCTION. THE UPPER REFERENCE LIMIT (URL) OF TROPONIN, DEFINED THE 99TH PERCENTILE OF cTnI DISTRIBUTION IN A REFERENCE POPULATION, HAS BEEN CONFIRMED THE DECISION THRESHOLD FOR [place] DIAGNOSIS. Performed By: #### C MADM, LIVER, CMP, BNP ####[facility] [address] [address]DrIngrid Martinez LISSY 56 ng/mL Normal 9-82 [facility] Comment on above: Performed By: #### C MADM, LIVER, CMP, BNP ####[facility] [address] [id number] Martinez CBC AUTO DIFFon 10-06-2022 BASO # 0.1 103/ul Normal 0.0-0.1 [facility] Comment on above: Performed By: #### C BC #### [facility] [address] [id number] Lisa Martinez Basophils/100 WBC (Bld) 0.7 % Normal 0.2-2.0 [facility] Comment on above: Performed By: #### C BC #### [facility] [address] [place] [address] Dr. Lisa Martinez EO # 0.2 103/ul Normal 0.0-0.7 [facility] Comment on above: Performed By: #### C BC #### [facility] [address] [place] [address] Dr. Lisa Martinez Eosinophils/100 WBC (Bld) 2.0 % Normal 0.9-7.0 [facility] Comment on above: Performed By: #### C BC #### [facility] [address] [place] [address] Dr. Lisa Martinez Erythrocyte distribution width (RBC) [Ratio] 15.7 % Critically high 11.0-15.0 [facility] Comment on above: Performed By: #### C BC #### [facility] [address] [place] [address] Dr. Lisa Martinez Hematocrit (Bld) [Volume fraction] 32.4 % Critically low 36.0-48.0 [facility] Comment on above: Performed By: #### C BC #### [facility] [address] [place] [address] Dr. Lisa Martinez Hemoglobin (Bld) [Mass/Vol] 10.0 g/dL Critically low 12.0-16.0 [facility] Comment on above: Performed By: #### C BC #### [facility] [address] [place] [address] Dr. Lisa Martinez IG # 0.02 10e3/ul Normal 0.00-0.03 [facility] Comment on above: Performed By: #### C BC #### [facility] [address] [place] [address] Dr. Lisa Martinez IG % 0.3 % Normal 0.0-0.5 [facility] Comment on above: Performed By: #### C BC #### [facility] [address] [place] [address] Dr. Lisa Martinez LYMPH # 0.7 103/ul Critically low 1.2-3.8 [facility] Comment on above: Performed By: #### C BC #### [facility] [address] [address] [address] Lisa Martinez Lymphocytes/100 WBC (Bld) 9.2 % Critically low 20.5-60.0 [facility] Comment on above: Performed By: #### C BC #### [facility] [address] [address] [address] Lisa Martinez MANUAL DIFF REQ NO Normal [facility] Comment on above: Performed By: #### C BC #### [facility] [address] [place] [address] Dr. Lisa Martinez MCH (RBC) [Entitic mass] 29.8 pg Normal 26.7-34.0 [facility] Comment on above: Performed By: #### C BC #### [facility] [address] [place] [address] Dr. Lisa Martinez MCHC (RBC) [Mass/Vol] 30.9 g/dL Normal 29.9-35.2 [facility] Comment on above: Performed By: #### C BC #### [facility] [address] [place] [address] Dr. Lisa Martinez MCV (RBC) [Entitic vol] 96.4 fL Normal 81.0-99.0 [facility] Comment on above: Performed By: #### C BC #### [facility] [address] [place] [address] Dr. Lisa Martinez MONO # 0.5 103/ul Normal 0.3-0.8 [facility] Comment on above: Performed By: #### C BC #### [facility] [address] [place] [address] Dr. Lisa Martinez Monocytes/100 WBC (Bld) 6.4 % Normal 1.7-12.0 [facility] Comment on above: Performed By: #### C BC #### [facility] [address] [place] [address] Dr. Lisa Martinez NEUT # 6.2 103/ul Normal 1.4-6.5 [facility] Comment on above: Performed By: #### C BC #### [facility] [address] [address] [address] Lisa Martinez Neutrophils/100 WBC (Bld) 81.4 % Critically high 43.0-75.0 [facility] Comment on above: Performed By: #### C BC #### [facility] [address] [address] [address] Lisa Martinez Platelet mean volume (Bld) [Entitic vol] 10.2 fL Normal 9.5-13.5 [facility] Comment on above: Performed By: #### C BC #### [facility] [address] [address] [address] Lisa Martinez PLT 228 103/ul Normal 150-450 [facility] Comment on above: Performed By: #### C BC #### [facility] [address] [address] [address] Lisa Martinez RBC 3.36 106/ul Critically low 4.20-5.40 [facility] Comment on above: Performed By: #### C BC #### [facility] [address] [address] [address] Lisa Martinez WBC 7.6 103/ul Normal 4.0-11.0 [facility] Comment on above: Performed By: #### C BC #### [facility] [address] [place] [address] Dr. Lisa Martinez CTA CHEST WO W [...] JENNY MARQUEZ Date: 2022-10-06 14:18 Normal [facility] Covid-19 PCR (CVDTB)on 09-08 SARS-CoV-2 (COVID-19) RNA RACIEL+probe Ql (Unsp spec) Not detected Normal NOT DETECTED [facility] Comment on above: Result Comment: [...] for this test is supported by the Advertising Sales Executive of Health and Human Service's declaration that [...] longer be used). Performed By: #### C [facility] ####[facility] [address] [address]DrIngrid Martinez DIGOXINon 10-06-2022 DIG 2.3 ng/mL Critically high 0.9-2.0 [facility] Comment on above: Performed By: #### C BC #### [facility] [address] [address] [address] Lisa Martinez LIVER PROFILEon 10-06-2022 BILI, CONJUGATED 0.4 mg/dL Critically high 0.0-0.2 [facility] Comment on above: Performed By: #### C MADM, LIVER, CMP, BNP ####[facility] [address] [address]DrIngrid Martinez POINT OF CARE GLUCOSEon 09-08 Glucose [Mass/Vol] 154 mg/dL Critically high 74-106 [facility] Comment on above: Performed By: #### B BIOFUELS TECHNOLOGY DEVELOPMENT MANAGER, BMP #### [facility] [address] [address] [address] Lisa Martinez Glucose [Mass/Vol] 77 mg/dL Normal 74-106 [facility] Comment on above: Performed By: #### B BIOFUELS TECHNOLOGY DEVELOPMENT MANAGER, BMP #### [facility] [address] [address] [address] Lisa Martinez PROF 14(COMP METB)on 023 Albumin [Mass/Vol] 3.5 g/dL Normal 3.4-5.0 [facility] Comment on above: Performed By: #### C MADM, LIVER, CMP, BNP ####[facility] [address] [address]DrIngrid Martinez Albumin/Globulin [Mass ratio] 0.8 {ratio} Normal [facility] Comment on above: Performed By: #### C MADM, LIVER, CMP, BNP ####[facility] [address] [address]DrIngrid Martinez ALP [Catalytic activity/Vol] 94 U/L Normal 46-116 [facility] Comment on above: Performed By: #### C MADM, LIVER, CMP, BNP ####[facility] [address] [address]Dr. Lisa Martinez ALT [Catalytic activity/Vol] 13 U/L Critically low 14-59 [facility] Comment on above: Performed By: #### C MADM, LIVER, CMP, BNP ####[facility] [address] [address]Dr. Lisa Martinez Anion gap [Moles/Vol] 11.1 mmol/L Normal [facility] Comment on above: Performed By: #### C MADM, LIVER, CMP, BNP ####[facility] [address] [address]Dr. Lisa Martinez AST [Catalytic activity/Vol] 15 U/L Normal 15-37 [facility] Comment on above: Performed By: #### C MADM, LIVER, CMP, BNP ####[facility] [address] [address]Dr. Lisa Martinez Bilirubin [Mass/Vol] 1.6 mg/dL Critically high 0.2-1.0 [facility] Comment on above: Performed By: #### C MADM, LIVER, CMP, BNP ####[facility] [address] [address]Dr. Lisa Martinez Calcium [Mass/Vol] 9.2 mg/dL Normal 8.5-10.1 [facility] Comment on above: Performed By: #### C MADM, LIVER, CMP, BNP ####[facility] [address] [address]Dr. Lisa Martinez Chloride [Moles/Vol] 106 mmol/L Normal 98-107 [facility] Comment on above: Performed By: #### C MADM, LIVER, CMP, BNP ####[facility] [address] [address]Dr. Lisa Martinez CO2 [Moles/Vol] 29.0 mmol/L Normal 21.0-32.0 [facility] Comment on above: Performed By: #### C MADM, LIVER, CMP, BNP ####[facility] [address] [address]Dr. Lisa Martinez Creatinine [Mass/Vol] 1.43 mg/dL Critically high 0.55-1.02 [facility] Comment on above: Performed By: #### C MADM, LIVER, CMP, BNP ####[facility] [address] [address]Dr. Lisa Martinez EGFR-AF CZECH 42 mL/min/1.73m2 Critically low >=60 [facility] Comment on above: Performed By: #### C MADM, LIVER, CMP, BNP ####[facility] [address] [address]Dr. Lisa Martinez EGFR-NON AF CZECH 35 mL/min/1.73m2 Critically low >=60 [facility] Comment on above: Performed By: #### C MADM, LIVER, CMP, BNP ####[facility] [address] [address]Dr. Lisa Martinez Globulin (S) [Mass/Vol] 4.2 g/dL Normal [facility] Comment on above: Performed By: #### C MADM, LIVER, CMP, BNP ####[facility] [address] [address]Dr. Lisa Martinez Glucose [Mass/Vol] 114 mg/dL Critically high 74-106 [facility] Comment on above: Performed By: #### C MADM, LIVER, CMP, BNP ####[facility] [address] [address]Dr. Lisa Martinez Potassium [Moles/Vol] 4.1 mmol/L Normal 3.5-5.1 [facility] Comment on above: Performed By: #### C MADM, LIVER, CMP, BNP ####[facility] [address] [address]Dr. Fabianachapis Martinez Protein [Mass/Vol] 7.7 g/dL Normal 6.4-8.2 [facility] Comment on above: Performed By: #### C MADM, LIVER, CMP, BNP ####[facility] [address] [address]Dr. Fabianachapis Martinez Sodium [Moles/Vol] 142 mmol/L Normal 136-145 [facility] Comment on above: Performed By: #### C MADM, LIVER, CMP, BNP ####[facility] [address] [address]DrIngrid Martinez Urea nitrogen [Mass/Vol] 26.0 mg/dL Critically high 7.0-18.0 [facility] Comment on above: Performed By: #### C MADM, LIVER, CMP, BNP ####[facility] [address] [address]DrIngrid Martinez Urea nitrogen/Creatinin e [Mass ratio] 18.2 mg/mg Normal [facility] Comment on above: Performed By: #### C MADM, LIVER, CMP, BNP ####[facility] [address] [address]Dr. Lisa Martinez PROTIMEon 10-06-2022 INR Coag (PPP) [Relative time] 1.09 {INR} Normal [facility] Comment on above: Performed By: #### B BIOFUELS TECHNOLOGY DEVELOPMENT MANAGER, BMP #### [facility] [address] [place] [address] Dr. Lisa Martinez INR GUIDELINES SEE BELOW Normal [facility] Comment on above: Result Comment: ANTONY RED INR: 2.0 - 3.0 CONDITIONS NOT LISTED BELOW 2.5 - 3.5 FOR PROSTHETIC HEART VALVE REPLACEMENT 2.5 - 3.5 RECURRENT THROMBOSIS Performed By: #### B BIOFUELS TECHNOLOGY DEVELOPMENT MANAGER, BMP #### [facility] [address] [address] [address] Lisa Martinez PT Coag (PPP) [Time] 11.5 s Normal 9.0-11.6 [facility] Comment on above: Performed By: #### B BIOFUELS TECHNOLOGY DEVELOPMENT MANAGER, BMP #### [facility] [address] [address] [address] Lisa Martinez PTTon 10-06-2022 aPTT Coag (Bld) [Time] 26.5 s Normal 22.3-36.2 [facility] Comment on above: Performed By: #### B BIOFUELS TECHNOLOGY DEVELOPMENT MANAGER, BMP #### [facility] [address] [address] [address] Lisa Martinez ECHOCARDIO M/2D COMPLETEon 1 08-27-2021 ECHOCARDIO M/2D COMPLETE Patient: JENNI VILLEGAS Exam Date: 06/26/2022 : 1940 Gender:F Ordering : FARZANEH ARNDT Admission #: [id number] Family : Order #: [id number] CLICK HERE TO VIEW EXAM ECHOCARDIOGRAM REPORT [...] 0.81 cm2, 0.87 cm2, 0.77 cm2 Deceleration [place]: 0.72 m/s2 Pressure Half-Time: 1.18 s Peak [...] M.D. on 06/29/2022 at 15:34 Normal [facility] CBC AUTO DIFFon 05-02-2022 BASO # 0.0 103/ul Normal 0.0-0.1 [facility] Comment on above: Performed By: #### C BC #### [facility] [address] [place] [address] Dr. Lisa Martinez Basophils/100 WBC (Bld) 0.4 % Normal 0.2-2.0 [facility] Comment on above: Performed By: #### C BC #### [facility] [address] [place] [address] Dr. Lisa Martinez EO # 0.1 103/ul Normal 0.0-0.7 [facility] Comment on above: Performed By: #### C BC #### [facility] [address] [place] [address] Dr. Lisa Martinez Eosinophils/100 WBC (Bld) 1.8 % Normal 0.9-7.0 [facility] Comment on above: Performed By: #### C BC #### [facility] [address] [place] [address] Dr. Lisa Martinez Erythrocyte distribution width (RBC) [Ratio] 13.3 % Normal 11.0-15.0 [facility] Comment on above: Performed By: #### C BC #### [facility] [address] [place] [address] Dr. Lisa Martinez Hematocrit (Bld) [Volume fraction] 38.4 % Normal 36.0-48.0 [facility] Comment on above: Performed By: #### C BC #### [facility] [address] [place] [address] Dr. Lisa Martinez Hemoglobin (Bld) [Mass/Vol] 12.0 g/dL Normal 12.0-16.0 [facility] Comment on above: Performed By: #### C BC #### [facility] [address] [place] [address] Dr. Lisa Martinez IG # 0.09 10e3/ul Critically high 0.00-0.03 [facility] Comment on above: Performed By: #### C BC #### [facility] [address] [place] [address] Dr. Lisa Martinez IG % 1.6 % Critically high 0.0-0.5 [facility] Comment on above: Performed By: #### C BC #### [facility] [address] [place] [address] Dr. Lisa Martinez LYMPH # 0.9 103/ul Critically low 1.2-3.8 [facility] Comment on above: Performed By: #### C BC #### [facility] [address] [place] [address] Dr. Lisa Martinez Lymphocytes/100 WBC (Bld) 16.0 % Critically low 20.5-60.0 [facility] Comment on above: Performed By: #### C BC #### [facility] [address] [place] [address] Dr. Lisa Martinez MANUAL DIFF REQ NO Normal [facility] Comment on above: Performed By: #### C BC #### [facility] [address] [place] [address] Dr. Lisa Martinez MCH (RBC) [Entitic mass] 30.2 pg Normal 26.7-34.0 [facility] Comment on above: Performed By: #### C BC #### [facility] [address] [place] [address] Dr. Lisa Martinez MCHC (RBC) [Mass/Vol] 31.3 g/dL Normal 29.9-35.2 [facility] Comment on above: Performed By: #### C BC #### [facility] [address] [place] [address] Dr. Lisa Martinez MCV (RBC) [Entitic vol] 96.7 fL Normal 81.0-99.0 [facility] Comment on above: Performed By: #### C BC #### [facility] [address] [place] [address] Dr. Lisa Martinez MONO # 0.6 103/ul Normal 0.3-0.8 [facility] Comment on above: Performed By: #### C BC #### [facility] [address] [place] [address] Dr. Lisa Martinez Monocytes/100 WBC (Bld) 11.3 % Normal 1.7-12.0 [facility] Comment on above: Performed By: #### C BC #### [facility] [address] [address] [address] Lisa Martinez NEUT # 3.9 103/ul Normal 1.4-6.5 [facility] Comment on above: Performed By: #### C BC #### [facility] [address] [place] [address] Dr. Lisa Martinez Neutrophils/100 WBC (Bld) 68.9 % Normal 43.0-75.0 [facility] Comment on above: Performed By: #### C BC #### [facility] [address] [place] [address] Dr. Lisa Martinez Platelet mean volume (Bld) [Entitic vol] 10.7 fL Normal 9.5-13.5 [facility] Comment on above: Performed By: #### C BC #### [facility] [address] [place] [address] Dr. Lisa Martinez PLT 164 103/ul Normal 150-450 [facility] Comment on above: Performed By: #### C BC #### [facility] [address] [place] [address] Dr. Lisa Martinez RBC 3.97 106/ul Critically low 4.20-5.40 [facility] Comment on above: Performed By: #### C BC #### [facility] [address] [place] [address] Dr. Lisa Martinez WBC 5.6 103/ul Normal 4.0-11.0 [facility] Comment on above: Performed By: #### C BC #### [facility] [address] [place] [address] Dr. Lisa Martinez PROF 14(COMP METB)on 022 Albumin [Mass/Vol] 2.8 g/dL Critically low 3.4-5.0 [facility] Comment on above: Performed By: #### U RCX #### [facility] [address] [address] [address] Lisa Martinez Albumin/Globulin [Mass ratio] 0.7 {ratio} Normal [facility] Comment on above: Performed By: #### U RCX #### [facility] [address] [address] [address] Lisa Martinez ALP [Catalytic activity/Vol] 74 U/L Normal 46-116 [facility] Comment on above: Performed By: #### U RCX #### [facility] [address] [address] [address] Lisa Martinez ALT [Catalytic activity/Vol] 11 U/L Critically low 14-59 [facility] Comment on above: Performed By: #### U RCX #### [facility] [address] [place] [address] Dr. Lisa Martinez Anion gap [Moles/Vol] 13.5 mmol/L Normal [facility] Comment on above: Performed By: #### U RCX #### [facility] [address] [place] [address] Dr. Lisa Martinez AST [Catalytic activity/Vol] 14 U/L Critically low 15-37 [facility] Comment on above: Performed By: #### U RCX #### [facility] [address] [place] [address] Dr. Lisa Martinez Bilirubin [Mass/Vol] 0.5 mg/dL Normal 0.2-1.0 [facility] Comment on above: Performed By: #### U RCX #### [facility] [address] [place] [address] Dr. Lisa Martinez Calcium [Mass/Vol] 8.5 mg/dL Normal 8.5-10.1 [facility] Comment on above: Performed By: #### U RCX #### [facility] [address] [place] [address] Dr. Lisa Martinez Chloride [Moles/Vol] 103 mmol/L Normal 98-107 [facility] Comment on above: Performed By: #### U RCX #### [facility] [address] [place] [address] Dr. Lisa Martinez CO2 [Moles/Vol] 24.5 mmol/L Normal 21.0-32.0 [facility] Comment on above: Performed By: #### U RCX #### [facility] [address] [address] [address] Lisa Martinez Creatinine [Mass/Vol] 1.43 mg/dL Critically high 0.55-1.02 [facility] Comment on above: Performed By: #### U RCX #### [facility] [address] [address] [address] Lisa Martinez EGFR-AF CZECH 42 mL/min/1.73m2 Critically low >=60 [facility] Comment on above: Performed By: #### U RCX #### [facility] [address] [address] [address] Lisa Martinez EGFR-NON AF CZECH 35 mL/min/1.73m2 Critically low >=60 [facility] Comment on above: Performed By: #### U RCX #### [facility] [address] [address] [address] Lisa Martinez Globulin (S) [Mass/Vol] 4.3 g/dL Normal [facility] Comment on above: Performed By: #### U RCX #### [facility] [address] [address] [address] Lisa Martinez Glucose [Mass/Vol] 142 mg/dL Critically high 74-106 [facility] Comment on above: Performed By: #### U RCX #### [facility] [address] [address] [address] Lisa Martinez Potassium [Moles/Vol] 4.0 mmol/L Normal 3.5-5.1 [facility] Comment on above: Performed By: #### U RCX #### [facility] [address] [address] [address] Lisa Martinez Protein [Mass/Vol] 7.1 g/dL Normal 6.4-8.2 [facility] Comment on above: Performed By: #### U RCX #### [facility] [address] [place] [address] Dr. Lisa Martinez Sodium [Moles/Vol] 137 mmol/L Normal 136-145 [facility] Comment on above: Performed By: #### U RCX #### [facility] [address] [place] [address] Dr. Lisa Martinez Urea nitrogen [Mass/Vol] 31.0 mg/dL Critically high 7.0-18.0 [facility] Comment on above: Performed By: #### U RCX #### [facility] [address] [place] [address] Dr. Lisa Martinez Urea nitrogen/Creatinin e [Mass ratio] 21.7 mg/mg Normal [facility] Comment on above: Performed By: #### U RCX #### [facility] [address] [place] [address] Dr. Lisa Martinez CBC AUTO DIFFon 05-01-2022 BASO # 0.0 103/ul Normal 0.0-0.1 [facility] Comment on above: Performed By: #### U RCX #### [facility] [address] [place] [address] Dr. Lisa Martinez Basophils/100 WBC (Bld) 0.3 % Normal 0.2-2.0 [facility] Comment on above: Performed By: #### U RCX #### [facility] [address] [place] [address] Dr. Lisa Martinez EO # 0.1 103/ul Normal 0.0-0.7 [facility] Comment on above: Performed By: #### U RCX #### [facility] [address] [place] [address] Dr. Lisa Martinez Eosinophils/100 WBC (Bld) 0.9 % Normal 0.9-7.0 [facility] Comment on above: Performed By: #### U RCX #### [facility] [address] [place] [address] Dr. Lsia Martinez Erythrocyte distribution width (RBC) [Ratio] 13.4 % Normal 11.0-15.0 [facility] Comment on above: Performed By: #### U RCX #### [facility] [address] [address] [address] Lisa Martinez Hematocrit (Bld) [Volume fraction] 41.6 % Normal 36.0-48.0 [facility] Comment on above: Performed By: #### U RCX #### [facility] [address] [place] [address] Dr. Lisa Martinez Hemoglobin (Bld) [Mass/Vol] 12.8 g/dL Normal 12.0-16.0 [facility] Comment on above: Performed By: #### U RCX #### [facility] [address] [place] [address] Dr. Lisa Martinez IG # 0.16 10e3/ul Critically high 0.00-0.03 [facility] Comment on above: Performed By: #### U RCX #### [facility] [address] [place] [address] Dr. Lisa Martinez IG % 1.6 % Critically high 0.0-0.5 [facility] Comment on above: Performed By: #### U RCX #### [facility] [address] [place] [address] Dr. Lisa Martinez LYMPH # 0.8 103/ul Critically low 1.2-3.8 [facility] Comment on above: Performed By: #### U RCX #### [facility] [address] [place] [address] Dr. Lisa Martinez Lymphocytes/100 WBC (Bld) 7.8 % Critically low 20.5-60.0 [facility] Comment on above: Performed By: #### U RCX #### [facility] [address] [place] [address] Dr. Lisa Martinez MANUAL DIFF REQ NO Normal [facility] Comment on above: Performed By: #### U RCX #### [facility] [address] [place] [address] Dr. Lisa Martinez MCH (RBC) [Entitic mass] 29.8 pg Normal 26.7-34.0 [facility] Comment on above: Performed By: #### U RCX #### [facility] [address] [address] [address] Lisa Martinez MCHC (RBC) [Mass/Vol] 30.8 g/dL Normal 29.9-35.2 [facility] Comment on above: Performed By: #### U RCX #### [facility] [address] [address] [address] Lisa Martinez MCV (RBC) [Entitic vol] 96.7 fL Normal 81.0-99.0 [facility] Comment on above: Performed By: #### U RCX #### [facility] [address] [place] [address] Dr. Lisa Martinez MONO # 0.8 103/ul Normal 0.3-0.8 [facility] Comment on above: Performed By: #### U RCX #### [facility] [address] [place] [address] Dr. Lisa Martinez Monocytes/100 WBC (Bld) 8.4 % Normal 1.7-12.0 [facility] Comment on above: Performed By: #### U RCX #### [facility] [address] [place] [address] Dr. Lisa Martinez NEUT # 7.9 103/ul Critically high 1.4-6.5 [facility] Comment on above: Performed By: #### U RCX #### [facility] [address] [place] [address] Dr. Lisa Martinez Neutrophils/100 WBC (Bld) 81.0 % Critically high 43.0-75.0 [facility] Comment on above: Performed By: #### U RCX #### [facility] [address] [place] [address] Dr. Lisa Martinez Platelet mean volume (Bld) [Entitic vol] 10.6 fL Normal 9.5-13.5 [facility] Comment on above: Performed By: #### U RCX #### [facility] [address] [place] [address] Dr. Lisa Martinez PLT 211 103/ul Normal 150-450 [facility] Comment on above: Performed By: #### U RCX #### [facility] [address] [place] [address] Dr. Lisa Martinez RBC 4.30 106/ul Normal 4.20-5.40 [facility] Comment on above: Performed By: #### U RCX #### [facility] [address] [place] [address] Dr. Lisa Martinez WBC 9.8 103/ul Normal 4.0-11.0 [facility] Comment on above: Performed By: #### U RCX #### [facility] [address] [place] [address] Dr. Lisa Martinez DIGOXINon 05-01-2022 DIG 0.7 ng/mL Critically low 0.9-2.0 [facility] Comment on above: Performed By: #### B BIOFUELS TECHNOLOGY DEVELOPMENT MANAGER, BMP #### [facility] [address] [place] [address] Dr. Lisa Martinez GI PANEL (PCR)on 05-01-2022 Adenovirus F 40/41 Not detected Normal NOT DETECTED [facility] Comment on above: Performed By: #### B LDCX2 #### [facility] [address] [place] [address] Dr. Lisa Martinez Astrovirus Not detected Normal NOT DETECTED [facility] Comment on above: Performed By: #### B LDCX2 #### [facility] [address] [place] [address] Dr. Lisa Martinez C. Diff toxin A/B Not detected Normal NOT DETECTED [facility] Comment on above: Performed By: #### B LDCX2 #### [facility] [address] [place] [address] Dr. Lisa Martinez Campylobacter Not detected Normal NOT DETECTED [facility] Comment on above: Performed By: #### B LDCX2 #### [facility] [address] [place] [address] Dr. Lisa Martinez Cryptosporidium Not detected Normal NOT DETECTED [facility] Comment on above: Performed By: #### B LDCX2 #### [facility] [address] [place] [address] Dr. Lisa Martinez Cyclos. Cayetanensis Not detected Normal NOT DETECTED [facility] Comment on above: Performed By: #### B LDCX2 #### [facility] [address] [place] [address] Dr. Lisa Martinez E. Coli O157 Not Applicable Normal Not Applicable [facility] Comment on above: Performed By: #### B LDCX2 #### [facility] [address] [place] [address] Dr. Lisa Martinez E. histolytica Not detected Normal NOT DETECTED [facility] Comment on above: Performed By: #### B LDCX2 #### [facility] [address] [place] [address] Dr. Lisa Martinez EAEC Not detected Normal NOT DETECTED [facility] Comment on above: Performed By: #### B LDCX2 #### [facility] [address] [place] [address] Dr. Lisa Martinez EIEC Not detected Normal NOT DETECTED [facility] Comment on above: Performed By: #### B LDCX2 #### [facility] [address] [place] [address] Dr. Lisa Martinez EPEC Not detected Normal NOT DETECTED [facility] Comment on above: Performed By: #### B LDCX2 #### [facility] [address] [place] [address] Dr. Lisa Martinez ETEC Not detected Normal NOT DETECTED [facility] Comment on above: Performed By: #### B LDCX2 #### [facility] [address] [place] [address] Dr. Lisa Martinez G. Lamblia Not detected Normal NOT DETECTED [facility] Comment on above: Performed By: #### B LDCX2 #### [facility] [address] [place] [address] Dr. Lisa MALDONADO CONTROLS PASSED Normal [facility] Comment on above: Performed By: #### B LDCX2 #### [facility] [address] [place] [address] Dr. Lisa WARRENNL CHRIS HEADER GI PANEL BACTERIA Normal [facility] Comment on above: Performed By: #### B LDCX2 #### [facility] [address] [address] [address] Lisa HIRSCH ECOLI GI PANEL DIARRHEAGEN IC E.COLI / SHIGELLA Normal [facility] Comment on above: Performed By: #### B LDCX2 #### [facility] [address] [place] [address] Dr. Lisa HIRSCH INFO SEE BELOW Normal [facility] Comment on above: Result Comment: EAEC - Enteroaggregative E. Coli EPEC- Enteropathogenic E. Coli ETEC- Enterotoxigenic E. Coli lt/st STEC- Shigella-like toxin-producing E. Coli stx1/stx2 EIEC- Shigella/Enteroinvasive E. Coli Performed By: #### B LDCX2 #### [facility] [address] [place] [address] Dr. Lisa HIRSCH PARASITES GI PANEL PARASITES Normal [facility] Comment on above: Performed By: #### B LDCX2 #### [facility] [address] [place] [address] Dr. Lisa HIRSCH VIRUS GI PANEL VIRUSES Normal [facility] Comment on above: Performed By: #### B LDCX2 #### [facility] [address] [place] [address] Dr. Lisa Martinez Norovirus GI/GII Not detected Normal NOT DETECTED [facility] Comment on above: Performed By: #### B LDCX2 #### [facility] [address] [address] [address] Lisa Martinez P. Shigelloides Not detected Normal NOT DETECTED [facility] Comment on above: Performed By: #### B LDCX2 #### [facility] [address] [place] [address] Dr. Lisa Martinez Rotavirus A Not detected Normal NOT DETECTED [facility] Comment on above: Performed By: #### B LDCX2 #### [facility] [address] [place] [address] Dr. Lisa Martinez Salmonella Not detected Normal NOT DETECTED [facility] Comment on above: Performed By: #### B LDCX2 #### [facility] [address] [place] [address] Dr. Lisa Martinez Sapovirus Not detected Normal NOT DETECTED [facility] Comment on above: Performed By: #### B LDCX2 #### [facility] [address] [address] [address] Lisa Martinez STEC Not detected Normal NOT DETECTED [facility] Comment on above: Performed By: #### B LDCX2 #### [facility] [address] [place] [address] Dr. Lisa Martinez Vibrio Not detected Normal NOT DETECTED [facility] Comment on above: Performed By: #### B LDCX2 #### [facility] [address] [place] [address] Dr. Lisa Martinez Vibrio Cholera Not detected Normal NOT DETECTED [facility] Comment on above: Performed By: #### B LDCX2 #### [facility] [address] [place] [address] Dr. Lisa Martinez Y. Enterocolitica Not detected Normal NOT DETECTED [facility] Comment on above: Performed By: #### B LDCX2 #### [facility] [address] [place] [address] Dr. Lisa Martinez MAGNESIUMon 05-01-2022 Magnesium [Mass/Vol] 2.0 mg/dL Normal 1.8-2.4 [facility] Comment on above: Performed By: #### M G ####[facility] [address] [address]Dr. Lisa Martinez POINT OF CARE GLUCOSEon 04-09 Glucose [Mass/Vol] 184 mg/dL Critically high 74-106 [facility] Comment on above: Performed By: #### U RCX #### [facility] [address] [place] [address] Dr. Lisa Martinez Glucose [Mass/Vol] 137 mg/dL Critically high 74-106 [facility] Comment on above: Result Comment: Foll ow Protocol Performed By: #### C BC #### [facility] [address] [address] [address] Lisa Martinez Glucose [Mass/Vol] 170 mg/dL Critically high 74-106 [facility] Comment on above: Result Comment: Foll ow Protocol Performed By: #### P OCGLUC ####[facility] [address] [address]Dr. Lisa Martinez PROF 14(COMP METB)on 022 Albumin [Mass/Vol] 3.0 g/dL Critically low 3.4-5.0 [facility] Comment on above: Performed By: #### C MP ####[facility] [address] [address]Dr. Lisa Martinez Albumin/Globulin [Mass ratio] 0.6 {ratio} Normal [facility] Comment on above: Performed By: #### C MP ####[facility] [address] [place], [place] [address]Dr. Lisa Martinez ALP [Catalytic activity/Vol] 101 U/L Normal 46-116 [facility] Comment on above: Performed By: #### C MP ####[facility] [address] [address]Dr. Lisa Martinez ALT [Catalytic activity/Vol] 16 U/L Normal 14-59 [facility] Comment on above: Performed By: #### C MP ####[facility] [address] [place], [place] [address]Dr. Lisa Martinez Anion gap [Moles/Vol] 9.7 mmol/L Normal [facility] Comment on above: Performed By: #### C MP ####[facility] [address] [place], [place] [address]Dr. Lisa Martinez AST [Catalytic activity/Vol] 13 U/L Critically low 15-37 [facility] Comment on above: Performed By: #### C MP ####[facility] [address] [place], [place] [address]Dr. Lisa Martinez Bilirubin [Mass/Vol] 0.5 mg/dL Normal 0.2-1.0 [facility] Comment on above: Performed By: #### C MP ####[facility] [address] [id number]. Lisa Martinez Calcium [Mass/Vol] 8.8 mg/dL Normal 8.5-10.1 [facility] Comment on above: Performed By: #### C MP ####[facility] [address] [id number]. Lisa Martinez Chloride [Moles/Vol] 104 mmol/L Normal 98-107 [facility] Comment on above: Performed By: #### C MP ####[facility] [address] [id number]. Lisa Martinez CO2 [Moles/Vol] 26.8 mmol/L Normal 21.0-32.0 [facility] Comment on above: Performed By: #### C MP ####[facility] [address] [address]Dr. Lisa Martinez Creatinine [Mass/Vol] 1.51 mg/dL Critically high 0.55-1.02 [facility] Comment on above: Performed By: #### C MP ####[facility] [address] [id number]. Lisa Martinez EGFR-AF CZECH 40 mL/min/1.73m2 Critically low >=60 [facility] Comment on above: Performed By: #### C MP ####[facility] [address] [id number]. Lisa Martinez EGFR-NON AF CZECH 33 mL/min/1.73m2 Critically low >=60 [facility] Comment on above: Performed By: #### C MP ####[facility] [address] [id number]. Lisa Martinez Globulin (S) [Mass/Vol] 4.8 g/dL Normal [facility] Comment on above: Performed By: #### C MP ####[facility] [address] [id number]. Lisa Juan Glucose [Mass/Vol] 177 mg/dL Critically high 74-106 [facility] Comment on above: Performed By: #### C MP ####[facility] [address] [id number]. Lisa Martinez Potassium [Moles/Vol] 4.5 mmol/L Normal 3.5-5.1 [facility] Comment on above: Performed By: #### C MP ####[facility] [address] [id number] Martinez Protein [Mass/Vol] 7.8 g/dL Normal 6.4-8.2 [facility] Comment on above: Performed By: #### C MP ####[facility] [address] [id number]. Lisa Martinez Sodium [Moles/Vol] 136 mmol/L Normal 136-145 [facility] Comment on above: Performed By: #### C MP ####[facility] [address] [id number] Martinez Urea nitrogen [Mass/Vol] 28.0 mg/dL Critically high 7.0-18.0 [facility] Comment on above: Performed By: #### C MP ####[facility] [address] [id number]. Lisa Martinez Urea nitrogen/Creatinin e [Mass ratio] 18.5 mg/mg Normal [facility] Comment on above: Performed By: #### C MP ####[facility] [address] [id number]. Lisa Martinez BNPon 04-30-2022 Natriuretic peptide B (Bld) [Mass/Vol] 1752.0 pg/mL Normal <=1,800.0 [facility] Comment on above: Performed By: #### B BIOFUELS TECHNOLOGY DEVELOPMENT MANAGER, BMP #### [facility] [address] [place], [place] [address] Dr. Lisa Martinez CBC AUTO DIFFon 04-30-2022 BASO # 0.1 103/ul Normal 0.0-0.1 [facility] Comment on above: Performed By: #### C BC ####[facility] [address] [id number] Martinez Basophils/100 WBC (Bld) 0.6 % Normal 0.2-2.0 [facility] Comment on above: Performed By: #### C BC ####[facility] [address] [address]Dr. Lisa Martinez EO # 0.1 103/ul Normal 0.0-0.7 [facility] Comment on above: Performed By: #### C BC ####[facility] [address] [address]Dr. Lisa Juan Eosinophils/100 WBC (Bld) 1.2 % Normal 0.9-7.0 [facility] Comment on above: Performed By: #### C BC ####[facility] [address] [place], [place] [address]Dr. Lisa Martinez Erythrocyte distribution width (RBC) [Ratio] 13.2 % Normal 11.0-15.0 [facility] Comment on above: Performed By: #### C BC ####[facility] [address] [place], [place] [address]Dr. Lisa Martinez Hematocrit (Bld) [Volume fraction] 43.4 % Normal 36.0-48.0 [facility] Comment on above: Performed By: #### C BC ####[facility] [address] [place], [place] [address]Dr. Lisa Martinez Hemoglobin (Bld) [Mass/Vol] 14.2 g/dL Normal 12.0-16.0 [facility] Comment on above: Performed By: #### C BC ####[facility] [address] [place], [place] [address]Dr. Lisa Martinez IG # 0.13 10e3/ul Critically high 0.00-0.03 [facility] Comment on above: Performed By: #### C BC ####[facility] [address] [place], [place] [address]Dr. Lisa Martinez IG % 1.6 % Critically high 0.0-0.5 [facility] Comment on above: Performed By: #### C BC ####[facility] [address] [place], [place] [address]Dr. Lisa Martinez LYMPH # 0.8 103/ul Critically low 1.2-3.8 [facility] Comment on above: Performed By: #### C BC ####[facility] [address] [address]Dr. Lisa Martinez Lymphocytes/100 WBC (Bld) 9.8 % Critically low 20.5-60.0 [facility] Comment on above: Performed By: #### C BC ####[facility] [address] [address]Dr. Lisa Martinez MANUAL DIFF REQ NO Normal [facility] Comment on above: Performed By: #### C BC ####[facility] [address] [place] [address]Dr. Lisa Martinez MCH (RBC) [Entitic mass] 30.0 pg Normal 26.7-34.0 [facility] Comment on above: Performed By: #### C BC ####[facility] [address] [place], [place] [address]Dr. Lisa Martinez MCHC (RBC) [Mass/Vol] 32.7 g/dL Normal 29.9-35.2 [facility] Comment on above: Performed By: #### C BC ####[facility] [address] [place], [place] [address]Dr. Lisa Martinez MCV (RBC) [Entitic vol] 91.8 fL Normal 81.0-99.0 [facility] Comment on above: Performed By: #### C BC ####[facility] [address] [place], [place] [address]Dr. Lisa Martinez MONO # 1.2 103/ul Critically high 0.3-0.8 [facility] Comment on above: Performed By: #### C BC ####[facility] [address] [place], [place] [address]Dr. Lisa Martinez Monocytes/100 WBC (Bld) 15.0 % Critically high 1.7-12.0 [facility] Comment on above: Performed By: #### C BC ####[facility] [address] [place], [place] [address]Dr. Lisa Martinez NEUT # 5.8 103/ul Normal 1.4-6.5 [facility] Comment on above: Performed By: #### C BC ####[facility] [address] [place] [id number]. Lisa Martinez Neutrophils/100 WBC (Bld) 71.8 % Normal 43.0-75.0 [facility] Comment on above: Performed By: #### C BC ####[facility] [address] [place] [id number]. Lisa Martinez Platelet mean volume (Bld) [Entitic vol] 10.5 fL Normal 9.5-13.5 [facility] Comment on above: Performed By: #### C BC ####[facility] [address] [place] [id number]. Lisa Martinez PLT 242 103/ul Normal 150-450 [facility] Comment on above: Performed By: #### C BC ####[facility] [address] [place] [id number]. Lisa Martinez RBC 4.73 106/ul Normal 4.20-5.40 [facility] Comment on above: Performed By: #### C BC ####[facility] [address] [place] [id number]. Lisa Martinez WBC 8.1 103/ul Normal 4.0-11.0 [facility] Comment on above: Performed By: #### C BC ####[facility] [address] [place] [id number]. Lisa Martinez CT HEAD WO CONon 04-30-2022 [...] MEENA HAWKINS Date: 2022-04-30 07:46 Normal [facility] CULTURE BLOODon 04-30-2022 Microscopic examination of blood, culture Culture Observations: NO GROWTH AT 5 DAYS. Normal [facility] Comment on above: Performed By: #### B LDCX2 #### [facility] [address] [address] [address] Lisa Martinez Microscopic examination of blood, culture Culture Observations: NO GROWTH AT 5 DAYS. Normal [facility] Comment on above: Performed By: #### B LDCX1 ####[facility] [address] [address]Dr. Lisa Martinez CULTURE URINEon 04-30-2022 CULTURE URINE Culture Observations : No growth Normal [facility] Comment on above: Performed By: #### U RCX ####[facility] [address] [address]DrIngrid Martinez Covid-19 PCR (CVDTBH)on 04-09 SARS-CoV-2 (COVID-19) RNA RACIEL+probe Ql (Unsp spec) Detected Critically abnormal NOT DETECTED [facility] Comment on above: Result Comment: This test is not yet approved or cleared by the [place] FDA. When there are no FDA-approved or cleared tests available, and other criteria are met, FDA can make tests available under an emergency access mechanism called an Emergency Use Authorization (EUA). The EUA for this test is supported by the Advertising Sales Executive of Health and Human Service's declaration that [...] used). Performed By: #### C VDTBH #### [facility] [address] [address] [address] Lisa Martinez ER URINE PROFILEon 2 Bilirubin Ql (U) Negative Normal NEGATIVE [facility] Comment on above: Performed By: #### C BC #### [facility] [address] [place] [address] Dr. Lisa Martinez Clarity (U) CLEAR Normal CLEAR [facility] Comment on above: Performed By: #### C BC #### [facility] [address] [place] [address] Dr. Lisa Martinez Color (U) LT. YELLOW Normal YELLOW [facility] Comment on above: Performed By: #### C BC #### [facility] [address] [place] [address] Dr. Lisa SMITH A micrscopic examination will be performed if indicated. Normal [facility] Comment on above: Performed By: #### C BC #### [facility] [address] [place] [address] Dr. Lisa Martinez Glucose Ql (U) Negative Normal NEGATIVE [facility] Comment on above: Performed By: #### C BC #### [facility] [address] [place] [address] Dr. Lisa Martinez Hemoglobin Ql (U) Negative Normal NEGATIVE [facility] Comment on above: Performed By: #### C BC #### [facility] [address] [place] [address] Dr. Lisa Martinez Ketones Ql (U) Negative Normal NEGATIVE [facility] Comment on above: Performed By: #### C BC #### [facility] [address] [place] [address] Dr. Lisa Martinez LEUKOCYTES Negative Normal NEGATIVE [facility] Comment on above: Performed By: #### C BC #### [facility] [address] [place] [address] Dr. Lisa Martinez Nitrite Ql (U) Positive Abnormal NEGATIVE [facility] Comment on above: Performed By: #### C BC #### [facility] [address] [place] [address] Dr. Lisa Martinez pH (U) 5.5 [pH] Normal 5-9 [facility] Comment on above: Performed By: #### C BC #### [facility] [address] [address] [address] Lisa Martinez SPEC GRAVITY 1.030 Abnormal 1.005-<=1.025 [facility] Comment on above: Performed By: #### C BC #### [facility] [address] [address] [address] Lisa Martinez UA PROTEIN Negative Normal NEGATIVE/ TRACE [facility] Comment on above: Performed By: #### C BC #### [facility] [address] [address] [address] Lisa Martinez UR MICRO IND INDICATED Normal [facility] Comment on above: Performed By: #### C BC #### [facility] [address] [place] [address] Dr. Lisa Martinez Urobilinogen Qn (U) 0.2 {Mike'U}/dL Normal 0.2 - 1.0 [facility] Comment on above: Performed By: #### C BC #### [facility] [address] [place] [address] Dr. Lisa Martinez GLYCOHEMOGLOBIN A1Con 2021 ADA RECOMMENDATION SEE BELOW Normal [facility] Comment on above: Result Comment: ADA RECOMMENDED LIMIT 4.0 - 6.0 ADA THERAPEUTIC TARGET < 7.0 ACTION SUGGESTED > 7.0 Performed By: #### B BIOFUELS TECHNOLOGY DEVELOPMENT MANAGER, BMP #### [facility] [address] [place] [address] Dr. Lisa Martinez Glucose [Mass/Vol] 154 mg/dL Normal [facility] Comment on above: Performed By: #### B BIOFUELS TECHNOLOGY DEVELOPMENT MANAGER, BMP #### [facility] [address] [place] [address] Dr. Lisa Martinez HbA1c (Bld) [Mass fraction] 7.0 % Critically high 4.5-6.2 [facility] Comment on above: Performed By: #### B BIOFUELS TECHNOLOGY DEVELOPMENT MANAGER, BMP #### [facility] [address] [place] [address] Dr. Lisa Martinez LACTATE/LACTIC ACIDon 2021 Lactate [Moles/Vol] 1.1 mmol/L Normal 0.4-1.9 [facility] Comment on above: Performed By: #### L ACT ####[facility] [address] [address]Dr. Lisa Martinez LIPASEon 04-30-2022 Lipase [Catalytic activity/Vol] 53.0 U/L Critically low 73.0-393.0 [facility] Comment on above: Performed By: #### B BIOFUELS TECHNOLOGY DEVELOPMENT MANAGER, BMP #### [facility] [address] [address] [address] Lisa Martinez LIVER PROFILEon 04-30-2022 Albumin [Mass/Vol] 3.4 g/dL Normal 3.4-5.0 [facility] Comment on above: Performed By: #### U RCX #### [facility] [address] [place] [address] Dr. Lisa Martinez Albumin/Globulin [Mass ratio] 0.7 {ratio} Normal [facility] Comment on above: Performed By: #### U RCX #### [facility] [address] [place] [address] Dr. Lisa Martinez ALP [Catalytic activity/Vol] 110 U/L Normal 46-116 [facility] Comment on above: Performed By: #### U RCX #### [facility] [address] [place] [address] Dr. Lisa Martinez ALT [Catalytic activity/Vol] 20 U/L Normal 14-59 [facility] Comment on above: Performed By: #### U RCX #### [facility] [address] [place] [address] Dr. Lisa Martinez AST [Catalytic activity/Vol] 16 U/L Normal 15-37 [facility] Comment on above: Performed By: #### U RCX #### [facility] [address] [address] [address] Lisa Martinez BILI, CONJUGATED 0.2 mg/dL Normal 0.0-0.2 [facility] Comment on above: Performed By: #### U RCX #### [facility] [address] [place] [address] Dr. Lisa Martinez Bilirubin [Mass/Vol] 0.7 mg/dL Normal 0.2-1.0 [facility] Comment on above: Performed By: #### U RCX #### [facility] [address] [place] [address] Dr. Lisa Martinez Globulin (S) [Mass/Vol] 5.0 g/dL Normal [facility] Comment on above: Performed By: #### U RCX #### [facility] [address] [place] [address] Dr. Lisa Martinez Protein [Mass/Vol] 8.4 g/dL Critically high 6.4-8.2 [facility] Comment on above: Performed By: #### U RCX #### [facility] [address] [place] [address] Dr. Lisa Martinez POINT OF CARE GLUCOSEon 04-09 Glucose [Mass/Vol] 203 mg/dL Critically high 74-106 [facility] Comment on above: Performed By: #### B BIOFUELS TECHNOLOGY DEVELOPMENT MANAGER, BMP #### [facility] [address] [place] [address] Dr. Lisa Martinez Glucose [Mass/Vol] 174 mg/dL Critically high -106 [facility] Comment on above: Performed By: #### C BC #### [facility] [address] [place] [address] Dr. Lisa Martinez Glucose [Mass/Vol] 149 mg/dL Critically high -106 [facility] Comment on above: Performed By: #### B LDCX2 #### [facility] [address] [place] [address] Dr. Lisa Martinez PROF CHEM 8 (BAS METB)on Anion gap [Moles/Vol] 15.3 mmol/L Normal [facility] Comment on above: Performed By: #### C BC #### [facility] [address] [place] [address] Dr. Lisa Martinez Calcium [Mass/Vol] 9.1 mg/dL Normal 8.5-10.1 [facility] Comment on above: Performed By: #### C BC #### [facility] [address] [place] [address] Dr. Lisa Martinez Chloride [Moles/Vol] 98 mmol/L Normal 98-107 [facility] Comment on above: Performed By: #### C BC #### [facility] [address] [place] [address] Dr. Lisa Martinez CO2 [Moles/Vol] 24.4 mmol/L Normal 21.0-32.0 [facility] Comment on above: Performed By: #### C BC #### [facility] [address] [address] [address] Lisa Martinez Creatinine [Mass/Vol] 1.44 mg/dL Critically high 0.55-1.02 [facility] Comment on above: Performed By: #### C BC #### [facility] [address] [place] [address] Dr. Lisa Martinez EGFR-AF CZECH 42 mL/min/1.73m2 Critically low >=60 [facility] Comment on above: Performed By: #### C BC #### [facility] [address] [place] [address] Dr. Lisa Martinez EGFR-NON AF CZECH 35 mL/min/1.73m2 Critically low >=60 [facility] Comment on above: Performed By: #### C BC #### [facility] [address] [place] [address] Dr. Lisa Martinez Glucose [Mass/Vol] 225 mg/dL Critically high 74-106 [facility] Comment on above: Performed By: #### C BC #### [facility] [address] [place] [address] Dr. Lisa Martinez Potassium [Moles/Vol] 4.7 mmol/L Normal 3.5-5.1 [facility] Comment on above: Performed By: #### C BC #### [facility] [address] [place] [address] Dr. Lisa Martinez Sodium [Moles/Vol] 133 mmol/L Critically low 136-145 [facility] Comment on above: Performed By: #### C BC #### [facility] [address] [place] [address] Dr. Lisa Martinez Urea nitrogen [Mass/Vol] 37.0 mg/dL Critically high 7.0-18.0 [facility] Comment on above: Performed By: #### C BC #### [facility] [address] [place] [address] Dr. Lisa Martinez Urea nitrogen/Creatinin e [Mass ratio] 25.7 mg/mg Normal [facility] Comment on above: Performed By: #### C BC #### [facility] [address] [place] [address] Dr. Lisa Martinez PROTIMEon 04-30-2022 INR Coag (PPP) [Relative time] 1.02 {INR} Normal [facility] Comment on above: Performed By: #### K U #### [facility] [address] [place] [address] Dr. Lisa Martinez INR GUIDELINES SEE BELOW Normal [facility] Comment on above: Result Comment: ANTONY RED INR: 2.0 - 3.0 CONDITIONS NOT LISTED BELOW 2.5 - 3.5 FOR PROSTHETIC HEART VALVE REPLACEMENT 2.5 - 3.5 RECURRENT THROMBOSIS Performed By: #### K U #### [facility] [address] [place] [address] Dr. Lisa Martinez PT Coag (PPP) [Time] 11.0 s Normal 9.0-11.6 [facility] Comment on above: Performed By: #### K U #### [facility] [address] [place] [address] Dr. Lisa Martinez PTTon 04-30-2022 aPTT Coag (Bld) [Time] 27.5 s Normal 22.3-36.2 [facility] Comment on above: Performed By: #### K U #### [facility] [address] [place] [address] Dr. Lisa Martinez TROPONIN, HIGH SENSITIVITYon 04-30-2022 HSTROP 20.0 pg/mL Normal 4.0-51.3 [facility] Comment on above: Result Comment: CUT- OFF POINTS HAVE BEEN ESTABLISHED BASED ON THE FOURTH UNIVERSAL DEFINITIONS OF MYOCARDIAL INFARCTION. THE UPPER REFERENCE LIMIT (URL) OF TROPONIN, DEFINED THE 99TH PERCENTILE OF cTnI DISTRIBUTION IN A REFERENCE POPULATION, HAS BEEN CONFIRMED THE DECISION THRESHOLD FOR [place] DIAGNOSIS. Performed By: #### U RCX #### [facility] [address] [place] [address] Dr. Lisa Martinez URINE MICROSCOPIC ONLYon BACTERIA MODERATE Abnormal NONE SEEN [facility] Comment on above: Performed By: #### K U #### [facility] [address] [place] [address] Dr. Lisa Martinez Bacteria identified Cx Nom (U) INDICATED Normal [facility] Comment on above: Performed By: #### K U #### [facility] [address] [place] [address] Dr. Lisa Martinez CAST NONE SEEN Normal NONE SEEN [facility] Comment on above: Performed By: #### K U #### [facility] [address] [place] [address] Dr. Lisa Martinez Crystals LM Nom (Urine sed) NONE SEEN Normal NONE SEEN [facility] Comment on above: Performed By: #### K U #### [facility] [address] [place] [address] Dr. Lisa Martinez Epithelial cells LM Ql (Urine sed) RARE Normal NONE SEEN /RARE [facility] Comment on above: Performed By: #### K U #### [facility] [address] [place] [address] Dr. Lisa Martinez MUCOUS NONE SEEN Normal NONE SEEN [facility] Comment on above: Performed By: #### K U #### [facility] [address] [place] [address] Dr. Lisa Martinez RBC NONE SEEN Abnormal 0-2 [facility] Comment on above: Performed By: #### K U #### [facility] [address] [place] [address] Dr. Lisa Martinez WBC 0-2 Abnormal NONE SEEN [facility] Comment on above: Performed By: #### K U #### [facility] [address] [place] [address] Dr. Lisa Martinez XR CHEST 1 Von [...] by: MEENA HAWKINS Date: 2022-04-30 07:42 Normal [facility] FREE T3on 04-12-2022 FREE T3 2.10 pg/mlL Critically low 2.18-3.98 [facility] Comment on above: Performed By: #### C VDTBH #### [facility] [address] [place] [address] Dr. Lisa Martinez FREE T4on 04-12-2022 Free T4 [Mass/Vol] 0.88 ng/dL Normal 0.76-1.46 [facility] Comment on above: Performed By: #### B LDCX2 #### [facility] [address] [place] [address] Dr. Lisa Martinez TSHon 04-12-2022 TSH 5.007 uIU/mL Critically high 0.358-3.740 [facility] Comment on above: Performed By: #### C VDTBH #### [facility] [address] [place] [address] Dr. Lisa Martinez US THYROIDon 04-12-2022 US [...] MEENA HAWKINS Date: 2022-04-12 13:20 Normal [facility] CBC AUTO DIFFon 02-12-2022 BASO # 0.1 103/ul Normal 0.0-0.1 [facility] Comment on above: Performed By: #### K U #### [facility] [address] [address] [address] Lisa Martinez Basophils/100 WBC (Bld) 0.7 % Normal 0.2-2.0 [facility] Comment on above: Performed By: #### K U #### [facility] [address] [place] [address] Dr. Lisa Martinez EO # 0.3 103/ul Normal 0.0-0.7 [facility] Comment on above: Performed By: #### K U #### [facility] [address] [place] [address] Dr. Lisa Martinez Eosinophils/100 WBC (Bld) 3.3 % Normal 0.9-7.0 [facility] Comment on above: Performed By: #### K U #### [facility] [address] [place] [address] Dr. Lisa Martinez Erythrocyte distribution width (RBC) [Ratio] 13.0 % Normal 11.0-15.0 [facility] Comment on above: Performed By: #### K U #### [facility] [address] [place] [address] Dr. Lisa Martinez Hematocrit (Bld) [Volume fraction] 34.6 % Critically low 36.0-48.0 [facility] Comment on above: Performed By: #### K U #### [facility] [address] [place] [address] Dr. Lisa Martinez Hemoglobin (Bld) [Mass/Vol] 11.1 g/dL Critically low 12.0-16.0 [facility] Comment on above: Performed By: #### K U #### [facility] [address] [place] [address] Dr. Lisa Martinez IG # 0.04 10e3/ul Critically high 0.00-0.03 [facility] Comment on above: Performed By: #### K U #### [facility] [address] [place] [address] Dr. Lisa Martinez IG % 0.4 % Normal 0.0-0.5 [facility] Comment on above: Performed By: #### K U #### [facility] [address] [address] [address] Lisa Martinez LYMPH # 1.0 103/ul Critically low 1.2-3.8 [facility] Comment on above: Performed By: #### K U #### [facility] [address] [place] [address] Dr. Lisa Martinez Lymphocytes/100 WBC (Bld) 10.6 % Critically low 20.5-60.0 [facility] Comment on above: Performed By: #### K U #### [facility] [address] [place] [address] Dr. Lisa Martinez MANUAL DIFF REQ NO Normal [facility] Comment on above: Performed By: #### K U #### [facility] [address] [place] [address] Dr. Lisa Martinez MCH (RBC) [Entitic mass] 31.3 pg Normal 26.7-34.0 [facility] Comment on above: Performed By: #### K U #### [facility] [address] [place] [address] Dr. Lisa Martinez MCHC (RBC) [Mass/Vol] 32.1 g/dL Normal 29.9-35.2 [facility] Comment on above: Performed By: #### K U #### [facility] [address] [place] [address] Dr. Lisa Martinez MCV (RBC) [Entitic vol] 97.5 fL Normal 81.0-99.0 [facility] Comment on above: Performed By: #### K U #### [facility] [address] [place] [address] Dr. Lisa Martinez MONO # 0.9 103/ul Critically high 0.3-0.8 [facility] Comment on above: Performed By: #### K U #### [facility] [address] [place] [address] Dr. Lisa Martinez Monocytes/100 WBC (Bld) 9.5 % Normal 1.7-12.0 [facility] Comment on above: Performed By: #### K U #### [facility] [address] [address] [address] Lisa Martinez NEUT # 6.9 103/ul Critically high 1.4-6.5 [facility] Comment on above: Performed By: #### K U #### [facility] [address] [place] [address] Dr. Lisa Martinez Neutrophils/100 WBC (Bld) 75.5 % Critically high 43.0-75.0 [facility] Comment on above: Performed By: #### K U #### [facility] [address] [place] [address] Dr. Lisa Martinez Platelet mean volume (Bld) [Entitic vol] 9.9 fL Normal 9.5-13.5 [facility] Comment on above: Performed By: #### K U #### [facility] [address] [place] [address] Dr. Lisa Martinez PLT 255 103/ul Normal 150-450 [facility] Comment on above: Performed By: #### K U #### [facility] [address] [place] [address] Dr. Lisa Martinez RBC 3.55 106/ul Critically low 4.20-5.40 [facility] Comment on above: Performed By: #### K U #### [facility] [address] [address] [address] Lisa Martinez WBC 9.2 103/ul Normal 4.0-11.0 [facility] Comment on above: Performed By: #### K U #### [facility] [address] [place] [address] Dr. Lisa Martinez CRPon 02-12-2022 CRP 0.7 mg/dL Normal <=1.0 [facility] Comment on above: Performed By: #### B BIOFUELS TECHNOLOGY DEVELOPMENT MANAGER, BMP #### [facility] [address] [address] [address] Lisa Martinez SED RATE WESTERGRENon 2021 SED RATE 56 mm/hr Critically high <=30 [facility] Comment on above: Performed By: #### S EDR ####[facility] [address] [address]Dr. Lisa Martinez URIC ACID SERUMon 02-12-2022 Urate [Mass/Vol] 9.2 mg/dL Critically high 2.6-6.0 [facility] Comment on above: Performed By: #### B BIOFUELS TECHNOLOGY DEVELOPMENT MANAGER, BMP #### [facility] [address] [place] [address] Dr. Lisa Martinez XR FOOT LT MIN [...] TYLER MENENDEZ Date: 2022-02-12 13:01 Normal [facility] HEMOGRAM AND PLATELon 2021 Hematocrit (Bld) [Volume fraction] 35.7 % Critically low 36.0-48.0 [facility] Comment on above: Performed By: #### U RCX #### [facility] [address] [place] [address] Dr. Lisa Martinez Hemoglobin (Bld) [Mass/Vol] 11.7 g/dL Critically low 12.0-16.0 [facility] Comment on above: Performed By: #### U RCX #### [facility] [address] [place] [address] Dr. Lisa Martinez MCH (RBC) [Entitic mass] 31.5 pg Normal 26.7-34.0 [facility] Comment on above: Performed By: #### U RCX #### [facility] [address] [address] [address] Lisa Martinez MCHC (RBC) [Mass/Vol] 32.8 g/dL Normal 29.9-35.2 [facility] Comment on above: Performed By: #### U RCX #### [facility] [address] [address] [address] Lisa Martinez MCV (RBC) [Entitic vol] 96.2 fL Normal 81.0-99.0 [facility] Comment on above: Performed By: #### U RCX #### [facility] [address] [address] [address] Lisa Martinez PLT 268 103/ul Normal 150-450 [facility] Comment on above: Performed By: #### U RCX #### [facility] [address] [address] [address] Lisa Martinez RBC 3.71 106/ul Critically low 4.20-5.40 [facility] Comment on above: Performed By: #### U RCX #### [facility] [address] [address] [address] Lisa Martinez WBC 9.3 103/ul Normal 4.0-11.0 [facility] Comment on above: Performed By: #### U RCX #### [facility] [address] [place] [address] Dr. Lisa Martinez PROF CHEM 8 (BAS METB)on Anion gap [Moles/Vol] 11.2 mmol/L Normal [facility] Comment on above: Performed By: #### C VDTBH #### [facility] [address] [place] [address] Dr. Lisa Martinez Calcium [Mass/Vol] 9.1 mg/dL Normal 8.5-10.1 [facility] Comment on above: Performed By: #### C VDTBH #### [facility] [address] [place] [address] Dr. Lisa Martinez Chloride [Moles/Vol] 104 mmol/L Normal 98-107 [facility] Comment on above: Performed By: #### C VDTBH #### [facility] [address] [address] [address] Lisa Martinez CO2 [Moles/Vol] 30.6 mmol/L Normal 21.0-32.0 [facility] Comment on above: Performed By: #### C VDTBH #### [facility] [address] [address] [address] Lisa Martinez Creatinine [Mass/Vol] 1.64 mg/dL Critically high 0.55-1.02 [facility] Comment on above: Performed By: #### C VDTBH #### [facility] [address] [address] [address] Lisa Martinez EGFR-AF CZECH 36 mL/min/1.73m2 Critically low >=60 [facility] Comment on above: Performed By: #### C VDTBH #### [facility] [address] [place] [address] Dr. Lisa Martinez EGFR-NON AF CZECH 30 mL/min/1.73m2 Critically low >=60 [facility] Comment on above: Performed By: #### C VDTBH #### [facility] [address] [address] [address] Lisa Martinez Glucose [Mass/Vol] 61 mg/dL Critically low 74-106 Th [facility] Comment on above: Performed By: #### C VDTBH #### [facility] [address] [address] [address] Lisa Martinez Potassium [Moles/Vol] 4.8 mmol/L Normal 3.5-5.1 [facility] Comment on above: Performed By: #### C VDTBH #### [facility] [address] [address] [address] Lisa Martinez Sodium [Moles/Vol] 141 mmol/L Normal 136-145 [facility] Comment on above: Performed By: #### C VDTBH #### [facility] [address] [address] [address] Lisa Martinez Urea nitrogen [Mass/Vol] 34.0 mg/dL Critically high 7.0-18.0 [facility] Comment on above: Performed By: #### C VDTBH #### [facility] [address] [place], [place] [address] Dr. Lisa Martinez Urea nitrogen/Creatinin e [Mass ratio] 20.7 mg/mg Normal [facility] Comment on above: Performed By: #### C VDTBH #### [facility] [address] [place], [place] [address] Dr. Lisa Martinez Cardiovascular Lab Reporton 12-21-2021 Cardiovascular Lab Report [facility] Patient Name: Jenni Villegas [facility] MR #: [id number] Physician: Josefina Weston of [facility] Service Date: 12/20/2021 Division of Birthdate: 1940 Cardiology Room #: [facility] Cardiovascular Services [address] [address] Cardiovascular Laboratory Report INDICATION: The patient is [...] the consent. She was brought to the laborer cutting tool in a fasting state. The right neck area was prepped and draped in usual fashion. Micropuncture technique and ultrasound guidance were used for access in the right internal jugular vein. A 6-Chilean x 11 cm sheath was placed. A 6-Chilean Becker catheter was used for right heart [...] Chao M.D. Date Trans: 12/21/2021 06:38 A/kali [id number] cc: Jasvir León M.D. [address] [address] Normal [facility]on 12-07 SARS-CoV-2 (COVID-19) RNA RACIEL+probe Ql (Unsp spec) Not detected Normal NOT DETECTED [facility] Comment on above: Result Comment: This test is not yet approved or cleared by the [place] FDA. When there are no FDA-approved or cleared tests available, and other criteria are met, FDA can make tests available under an emergency access mechanism called an Emergency Use Authorization (EUA). The EUA for this test is supported by the [place] of Health and Human Service's (HHS's) declaration [...] SARS-CoV-2. Performed By: #### K U #### [facility] [address] [address] [address] Lisa Martinez HEMOGRAM AND PLATELon 2021 Hematocrit (Bld) [Volume fraction] 37.7 % Normal 36.0-48.0 [facility] Comment on above: Performed By: #### H H ####[facility] [address] [address]DrIngrid Martinez Hemoglobin (Bld) [Mass/Vol] 11.8 g/dL Critically low 12.0-16.0 [facility] Comment on above: Performed By: #### H H ####[facility] [address] [address]DrIngrid Martinez MCH (RBC) [Entitic mass] 30.7 pg Normal 26.7-34.0 [facility] Comment on above: Performed By: #### H H ####[facility] [address] [address]DrIngrid Martinez MCHC (RBC) [Mass/Vol] 31.3 g/dL Normal 29.9-35.2 [facility] Comment on above: Performed By: #### H H ####[facility] [address] [address]DrIngrid Martinez MCV (RBC) [Entitic vol] 98.2 fL Normal 81.0-99.0 [facility] Comment on above: Performed By: #### H H ####[facility] [address] [id number] Martinez PLT 238 103/ul Normal 150-450 [facility] Comment on above: Performed By: #### H H ####[facility] [address] [id number] Martinez RBC 3.84 106/ul Critically low 4.20-5.40 [facility] Comment on above: Performed By: #### H H ####[facility] [address] [id number]. Lisa Martinez WBC 8.6 103/ul Normal 4.0-11.0 [facility] Comment on above: Performed By: #### H H ####[facility] [address] [id number]. Lisa Martinez PROF CHEM 8 (BAS METB)on Anion gap [Moles/Vol] 13.7 mmol/L Normal [facility] Comment on above: Performed By: #### B MP ####[facility] [address] [address]Dr. Lisa Martinez Calcium [Mass/Vol] 9.1 mg/dL Normal 8.5-10.1 [facility] Comment on above: Performed By: #### B MP ####[facility] [address] [place], [place] [address]Dr. Lisa Martinez Chloride [Moles/Vol] 107 mmol/L Normal 98-107 [facility] Comment on above: Performed By: #### B MP ####[facility] [address] [place], [place] [address]Dr. Fabianachapis Martinez CO2 [Moles/Vol] 26.9 mmol/L Normal 21.0-32.0 [facility] Comment on above: Performed By: #### B MP ####[facility] [address] [address]Dr. Lisa Martinez Creatinine [Mass/Vol] 1.48 mg/dL Critically high 0.55-1.02 [facility] Comment on above: Performed By: #### B MP ####[facility] [address] [id number]. Lisa Martinez EGFR-AF CZECH 41 mL/min/1.73m2 Critically low >=60 [facility] Comment on above: Performed By: #### B MP ####[facility] [address] [place], [place] [address]Dr. Lisa Martinez EGFR-NON AF CZECH 34 mL/min/1.73m2 Critically low >=60 [facility] Comment on above: Performed By: #### B MP ####[facility] [address] [id number]. Lisa Martinez Glucose [Mass/Vol] 161 mg/dL Critically high 74-106 [facility] Comment on above: Performed By: #### B MP ####[facility] [address] [id number]. Lisa Martinez Potassium [Moles/Vol] 4.6 mmol/L Normal 3.5-5.1 [facility] Comment on above: Performed By: #### B MP ####[facility] [address] [address]Dr. Lisa Martinez Sodium [Moles/Vol] 143 mmol/L Normal 136-145 [facility] Comment on above: Performed By: #### B MP ####[facility] [address] [address]Dr. Lisa Martinez Urea nitrogen [Mass/Vol] 35.0 mg/dL Critically high 7.0-18.0 [facility] Comment on above: Performed By: #### B MP ####[facility] [address] [address]Dr. Lisa Martinez Urea nitrogen/Creatinin e [Mass ratio] 23.6 mg/mg Normal [facility] Comment on above: Performed By: #### B MP ####[facility] [address] [id number]. Lisa Martinez Comprehensive Metabolic Pane yesica 08-17-2021 Albumin [Mass/Vol] 4.4 g/dL Normal 3.6-5.1 [facility] Comment on above: Performed By: #### C MP #### [facility] [address] [place], [place] [id number] Albumin/Globulin [Mass ratio] 1.4 {ratio} Normal 1.0-2.5 [facility] Comment on above: Performed By: #### C MP #### [facility] [address] [place] [id number] ALP [Catalytic activity/Vol] 89 U/L Normal 35-119 [facility] Comment on above: Performed By: #### C MP #### [facility] [address] [place], [place] [id number] ALT [Catalytic activity/Vol] 13 U/L Normal 6-33 [facility] Comment on above: Result Comment: 06/08 Female reference range changed. Performed By: #### C MP #### [facility] [address] [place], [place] [id number] Anion gap [Moles/Vol] 18 mmol/L Normal 12-20 [facility] Comment on above: Result Comment: Effe ctive 07/14/2019 reference range changed. Performed By: #### C MP #### [facility] [address] [place], [place] [id number] AST [Catalytic activity/Vol] 20 U/L Normal 9-34 [facility] Comment on above: Performed By: #### C MP #### [facility] [address] [place], [place] [id number] Bilirubin [Mass/Vol] 0.34 mg/dL Normal 0.30-1.20 [facility] Comment on above: Performed By: #### C MP #### [facility] [address] [place], [place] [id number] BUN/CREA 28 Ratio High 6-22 [facility] Comment on above: Performed By: #### C MP #### [facility] [address] [place], [place] [id number] Calcium [Mass/Vol] 9.8 mg/dL Normal 8.6-10.2 [facility] Comment on above: Performed By: #### C MP #### [facility] [address] [place], [place] [id number] Chloride [Moles/Vol] 106 mmol/L Normal 98-107 [facility] Specialist Comment on above: Performed By: #### C MP #### [facility] [address] [place], [place] [id number] CO2 [Moles/Vol] 23 mmol/L Normal 20-31 [facility] Comment on above: Performed By: #### C MP #### [facility] [address] [place], [place] [id number] Creatinine [Mass/Vol] 1.1 mg/dL Normal 0.6-1.4 [facility] Comment on above: Performed By: #### C MP #### [facility] [address] [place], [place] [id number] eGFRAA 59 mL/min/1.73m2 Low >60 [facility] Comment on above: Performed By: #### C MP #### [facility] [address] [place], [place] [id number] eGFRNAA 49 mL/min/1.73m2 Low >60 [facility] Comment on above: Performed By: #### C MP #### [facility] [address] [place], [place] [id number] Globulin (S) [Mass/Vol] 3.2 g/dL Normal 1.9-3.7 [facility] Comment on above: Performed By: #### C MP #### [facility] [address] [place], [place] [id number] Glucose [Mass/Vol] 51 mg/dL Low 65-99 [facility] Comment on above: Result Comment: For FASTING Glucose --- ADA reference ranges: Normal 65-99 mg/dl Prediabetes 100-125 Diabetes >/= 126 Performed By: #### C MP #### [facility] [address] [place], [place] [id number] Potassium [Moles/Vol] 4.5 mmol/L Normal 3.5-5.5 [facility] Comment on above: Performed By: #### C MP #### [facility] [address] [place], [place] [id number] Protein [Mass/Vol] 7.6 g/dL Normal 6.1-8.1 [facility] Att[facility] Comment on above: Performed By: #### C MP #### [facility] [address] [place], [place] [id number] Sodium [Moles/Vol] 143 mmol/L Normal 135-146 [facility] Attendant Comment on above: Performed By: #### C MP #### [facility] [address] [place], [place] [id number] Urea nitrogen [Mass/Vol] 31 mg/dL High 7-25 [facility] Comment on above: Performed By: #### C MP #### [facility] [address] [place], [place] [id number] Complete Blood Counton 08-03 Erythrocyte distribution width (RBC) [Ratio] 13.2 % Normal 11.0-15.0 [facility] Comment on above: Performed By: #### C BC, TSH, FT3, FT4, CMP #### [facility] [address] [place], [place] [id number] Hematocrit (Bld) [Volume fraction] 36.6 % Normal 35.0-47.0 [facility] Comment on above: Performed By: #### C BC, TSH, FT3, FT4, CMP #### [facility] [address] [place], [place] [id number] Hemoglobin (Bld) [Mass/Vol] 11.4 g/dL Low 11.6-15.5 [facility] Comment on above: Performed By: #### C BC, TSH, FT3, FT4, CMP #### [facility] [address] [place], [place] [id number] MCH (RBC) [Entitic mass] 31.1 pg Normal 27.0-33.0 [facility] Comment on above: Performed By: #### C BC, TSH, FT3, FT4, CMP #### [facility] [address] [place], [place] [id number] MCHC (RBC) [Mass/Vol] 31.1 g/dL Low 32.0-36.0 [facility] Comment on above: Performed By: #### C BC, TSH, FT3, FT4, CMP #### [facility] [address] [place], [place] [id number] MCV (RBC) [Entitic vol] 100 fL Normal 80-100 [facility] Comment on above: Performed By: #### C BC, TSH, FT3, FT4, CMP #### [facility] [address] [place], [place] [id number] Platelet mean volume (Bld) [Entitic vol] 10.10 fL Normal 7.50-12.50 [facility] Comment on above: Performed By: #### C BC, TSH, FT3, FT4, CMP #### [facility] [address] [place], [place] [id number] Platelets (Bld) [#/Vol] 245 10*3/uL Normal 140-400 [facility] Specialist Comment on above: Performed By: #### C BC, TSH, FT3, FT4, CMP #### [facility] [address] [place], [place] [id number] RBC (Bld) [#/Vol] 3.66 10*6/uL Low 3.90-5.20 [facility] Comment on above: Performed By: #### C BC, TSH, FT3, FT4, CMP #### [facility] [address] [place], [place] [id number] RDW-SD 48.1 fL Normal 37.0-50.0 [facility] Specialist Comment on above: Performed By: #### C BC, TSH, FT3, FT4, CMP #### [facility] [address] [place], [place] [id number] WBC (Bld) [#/Vol] 8.7 10*3/uL Normal 3.8-11.0 [facility] Comment on above: Performed By: #### C BC, TSH, FT3, FT4, CMP #### [facility] [address] [place], [place] [id number] Comprehensive Metabolic Pane [facility] 08-03-2021 Albumin [Mass/Vol] 3.9 g/dL Normal 3.6-5.1 [facility] Comment on above: Performed By: #### C BC, TSH, FT3, FT4, CMP #### [facility] [address] [place], [place] [id number] Albumin/Globulin [Mass ratio] 1.1 {ratio} Normal 1.0-2.5 [facility] Specialist Comment on above: Performed By: #### C BC, TSH, FT3, FT4, CMP #### [facility] [address] [place], [place] [id number] ALP [Catalytic activity/Vol] 105 U/L Normal 35-119 [facility] Specialist Comment on above: Performed By: #### C BC, TSH, FT3, FT4, CMP #### [facility] [address] [place], [place] [id number] ALT [Catalytic activity/Vol] 10 U/L Normal 6-33 [facility] Comment on above: Result Comment: 06/08 Female reference range changed. Performed By: #### C BC, TSH, FT3, FT4, CMP #### [facility] [address] [place], [place] [id number] Anion gap [Moles/Vol] 20 mmol/L Normal 12-20 [facility] Comment on above: Result Comment: Effe ctive 07/14/2019 reference range changed. Performed By: #### C BC, TSH, FT3, FT4, CMP #### [facility] [address] [place], [place] [id number] AST [Catalytic activity/Vol] 19 U/L Normal 9-34 [facility] Comment on above: Performed By: #### C BC, TSH, FT3, FT4, CMP #### [facility] [address] [place], [place] [id number] BUN/CREA 24 Ratio High 6-22 [facility] Comment on above: Performed By: #### C BC, TSH, FT3, FT4, CMP #### [facility] [address] [place], [place] [id number] Calcium [Mass/Vol] 9.6 mg/dL Normal 8.6-10.2 [facility] Comment on above: Performed By: #### C BC, TSH, FT3, FT4, CMP #### [facility] [address] [place], [place] [id number] Chloride [Moles/Vol] 106 mmol/L Normal 98-107 [facility] Comment on above: Performed By: #### C BC, TSH, FT3, FT4, CMP #### [facility] [address] [place], [place] [id number] CO2 [Moles/Vol] 21 mmol/L Normal 20-31 [facility] Comment on above: Performed By: #### C BC, TSH, FT3, FT4, CMP #### [facility] [address] [place], [place] [id number] Creatinine [Mass/Vol] 2.6 mg/dL High 0.6-1.4 [facility] Comment on above: Performed By: #### C BC, TSH, FT3, FT4, CMP #### [facility] [address] [place], [place] [id number] eGFRAA 22 mL/min/1.73m2 Low >60 [facility] Attendant Comment on above: Performed By: #### C BC, TSH, FT3, FT4, CMP #### [facility] [address] [place], [place] [id number] eGFRNAA 18 mL/min/1.73m2 Low >60 [facility] Attendant Comment on above: Performed By: #### C BC, TSH, FT3, FT4, CMP #### [facility] [address] [place], [place] [id number] Globulin (S) [Mass/Vol] 3.4 g/dL Normal 1.9-3.7 [facility] Att[facility] Comment on above: Performed By: #### C BC, TSH, FT3, FT4, CMP #### [facility] [address] [place], [place] [id number] Glucose [Mass/Vol] 93 mg/dL Normal 65-99 [facility] Attendant Comment on above: Result Comment: For FASTING Glucose --- ADA reference ranges: Normal 65-99 mg/dl Prediabetes 100-125 Diabetes >/= 126 Performed By: #### C BC, TSH, FT3, FT4, CMP #### [facility] [address] [place], [place] [id number] Potassium [Moles/Vol] 6.9 mmol/L Critically high 3.5-5.5 [facility] Att[facility] Comment on above: Result Comment: Repo rt given to Dr León (Ragini) Performed By: #### C BC, TSH, FT3, FT4, CMP #### [facility] [address] [place], [place] [id number] Protein [Mass/Vol] 7.3 g/dL Normal 6.1-8.1 [facility] [place] [facility] Comment on above: Performed By: #### C BC, TSH, FT3, FT4, CMP #### [facility] [address] [place], [place] [id number] Sodium [Moles/Vol] 139 mmol/L Normal 135-146 [facility] [place] [facility] Comment on above: Performed By: #### C BC, TSH, FT3, FT4, CMP #### [facility] [address] [place], [place] [id number] TBIL <0.3 Normal [facility] Att[facility] Comment on above: Performed By: #### C BC, TSH, FT3, FT4, CMP #### [facility] [address] [place], [place] [id number] Urea nitrogen [Mass/Vol] 62 mg/dL High 7-25 [facility] Att[facility] Comment on above: Performed By: #### C BC, TSH, FT3, FT4, CMP #### [facility] [address] [place], [place] [id number] Free T3on 08-03-2021 FT3 2.05 pg/mL Normal 2.00-4.40 [facility] Att[facility] Comment on above: Performed By: #### C BC, TSH, FT3, FT4, CMP #### [facility] [address] [place], [place] [id number] Free T4on 08-03-2021 Free T4 [Mass/Vol] 0.91 ng/dL Normal 0.80-1.80 [facility] Attendant Comment on above: Performed By: #### C BC, TSH, FT3, FT4, CMP #### [facility] [address] [place], [place] [id number] Q - B-TYPE NATRIURETIC (BNP) on 08-03-2021 Natriuretic peptide B (Bld) [Mass/Vol] 283 pg/mL High <100 [facility] Att[facility] Comment on above: Order Comment: [facility] Testing performed at: [facility], [address] [place] [address], [address] [place] [address], [id number], [employer]: Boone Calderón MD [facility] Collection Date/Time: [id number] [facility] Results Received Date/Time: [facility] Reported Date/Time: Result Comment: BNP levels increase with age in the general population with the highest values seen in individuals greater than 75 years of age. Reference: J. Am. Priya. Cardiol. 2002; 40:976-982. Performed By: #### [id number] #### [facility] Default [address] [place] [address] TSHon 08-03-2021 TSH 3.450 uIU/mL Normal 0.400-4.500 [facility] io Funeral Attendant Comment on above: Performed By: #### C BC, TSH, FT3, FT4, CMP #### [facility] [address] [place], [place] [id number] COVID Quick Testingon 2020 Result Negative [facility] Other Quick Fluon 06-06-2021 FLUAV Ab CF (S) [Titer] Negative [facility] Other FLUBV Ab CF (S) [Titer] Negative [facility] Other Vital Signs Date Time Vital Sign Value Performing Clinician Facility 08-07-2023 10:53-0500 Diastolic blood pressure 64 mm[Hg] Kd Macias MD [facility] 08-07-2023 10:53-0500 Heart rate 109 /min Kd Macias MD Work Phone: [employer] 08-07-2023 10:53-0500 Respiratory rate 18 /min Kd Macias MD [facility] 08-07-2023 10:53-0500 SaO2% (BldA) [Mass fraction] 90 % Kd Macias MD Work Phone[facility] 08-07-2023 10:53-0500 Systolic blood pressure 94 mm[Hg] Kd Macias MD Work Phone: [employer] 06-06-2021 12:45-0500 Body height 157.48 cm Mariam Ward Other [employer] Other 06-06-2021 12:45-0500 Body mass index (BMI) [Ratio] 34.75 kg/m2 Mariam Ginty Other [facility] Other 06-06-2021 12:45-0500 Body temperature 96.8 [degF] Mariam Ginty Other [facility] Other 06-06-2021 12:45-0500 Body weight 86.18 kg Mariam Ginty Other [facility] Other 06-06-2021 12:45-0500 Diastolic blood pressure 78 mm[Hg] Mariam Ginty Other [facility] Other 06-06-2021 12:45-0500 SaO2% (BldA) [Mass fraction] 94 % Mariam Ginty Other [facility] Other 06-06-2021 12:45-0500 Systolic blood pressure 131 mm[Hg] Mariam Ginty Other [employer] Other Encounters Encounter Date Encounter Type Care Provider Facility Start: 02-18-2024 End: 02-18-2024 ambulatory JASVIR LEÓN Not Available Start: 01-07-2024 End: 01-07-[address] [facility] Start: 12-26-2023 End: 12-26-2023 ambulatory JASVIR LEÓN Not Available Start: 12-07-2023 End: 12-07-2023 ambulatory FARZANEH ARNDT [facility] Start: 10-09-2023 End: 10-09-2023 ambulatory SARAH RODRIGUEZ Not Available Start: 08-07-2023 End: 08-07-2023 ambulatory KD MACIAS [facility] Start: 08-07-2023 End: 08-07-2023 Subsequent hospital visit by physician Kd Macias MD Work Phone: [facility] [facility] Start: 08-02-2023 End: 08-02-2023 ambulatory JASVIR LEÓN Not Available Start: 07-30-2023 End: 07-30-2023 ambulatory DAWOOD PEDROZA Not Available Start: 06-28-2023 End: 06-28-2023 ambulatory ODALYS RUSSO Not Available Start: 05-29-2023 End: 05-29-2023 ambulatory [facility] Start: 05-23-2023 End: 05-23-2023 ambulatory JASVIR LEÓN Not Available Start: 05-14-2023 End: 05-14-2023 ambulatory [place] Start: 05-09-2023 ambulatory JASVIR LEÓN [facility] Start: 05-09-2023 End: 05-09-2023 ambulatory [facility] Start: 12-06-2022 ambulatory BRENT PERALTA Facility [...] Encounter for preprocedural laboratory examination GRETTA OMALLEY [facility] Start: 12-20-2021 End: 12-21-2021 ambulatory GRETTA SHAHRAM Facility:[facility] Start: 12-16-2021 End: 12-17-2021 ambulatory GRETTA OMALLEY Facility: Start: 12-16-2021 End: 12-17-2021 Encounter for preprocedural laboratory examination GRETTA HADLEYCKO Facility: Start: 06-06-2021 End: 06-06-2021 ambulatory Mariam Ward Other [employer] Other Start: 06-06-2021 Office outpatient vi sit 15 minutes Mariam Ward [facility] Plan of Treatment Date Care Activity Detail Author Start: 08-07-2023 End: 08-07-2023 Njx dx/ther agt pvrt facet jt lmbr/sac 1 level LUMBAR MEDIAL BRANCH BLOCK Lumbar spondylosis 08/07/2023 10:37 AM [facility] Start: 08-07-2023 End: 08-07-2023 Njx dx/ther agt pvrt facet jt lmbr/sac 2nd level LUMBAR MEDIAL BRANCH BLOCK Lumbar spondylosis 08/07/2023 10:37 AM [facility] Start: 06-04-2023 Annual Wellness Visi t (Medicare) Annual Wellness Visit (Medicare) [facility] Start: 1999 Respiratory Syncytia l Virus (RSV) or age 60 yrs+ (1 - 1-dose 60+ series) Respiratory Syncytial Virus (RSV) or age 60 yrs+ (1 - 1-dose 60+ series) [facility] Start: 1958 DTaP/Tdap/Td vaccine (1 - Tdap) DTaP/Tdap/Td vaccine (1 - Tdap) [facility] Start: 1951 Depression Screen Depression Screen [facility] Start: 1949 Lipid panel Lipids [facility] Oxygen therapy [[facility] Data Set] Initiate Oxygen Therapy Protocol Respiratory Care Routine As Needed until discontinued starting 08/07/2023 [employer] Work Phone: Comment on above: As Needed until disc ontinued starting 08/07/2023 Immunizations Immunization Date Immunization Notes Care Provider Chris green 03-31-2014 tetanus toxoid, reduced diphtheria toxoid, and acellular pertussis vaccine, adsorbed Mariam Ginty Other [employer] Other 09-01-2013 tetanus toxoid, reduced diphtheria toxoid, and acellular pertussis vaccine, adsorbed Mariam Ginty Other [employer] Other Payers Date Payer Category Payer [employer]) [id number] 2016 [employer]) [id number] 2016 [employer] [id number] 1959 [employer] others) [id number] 1959 Medicare [id number] 1939 Unknown [id number] 2.16.840.1.053754.3.579.2.647 1939 Unknown [id number] 2.16.840.1.966964.3.579.2.593 1939 Unknown [id number] 2..840.1.913239.3.579.2.593 1939 Unknown [id number] ..840.1.886811.3.579.2.593 1939 Unknown [id number] 2.16.840.1.948392.3.579.2.593 1939 Unknown [id number] 2.16.840.1.123592.3.579.2.593 1939 Unknown [id number] 2.16.840.1.131147.3.579.2.593 1939 Unknown [id number] 2.16.840.1.090231.3.579.2.593 1939 Unknown [id number] 2.16.840.1.844514.3.579.2.593 1939 Unknown [id number] 2.16.840.1.845039.3.579.2.593 1939 Unknown [id number] 2.16.840.1.560093.3.579.2.593 1939 Unknown [id number] 2.16.840.1.862164.3.579.2.593 1939 Unknown [id number] 2.16.840.1.318119.3.579.2.593 1939 Unknown [id number] 2.16.840.1.906888.3.579.2.593 1939 Unknown [id number] 2.16.840.1.859996.3.579.2.593 1939 Unknown [id number] 2..840.1.593803.3.579.2.754 1939 Unknown [id number] 2.16.840.1.550413.3.579.2.754 1939 Unknown [id number] 2.16.840.1.473133.3.579.2.754 1939 Unknown [id number] 2.16.840.1.426651.3.579.2.754 1939 Unknown [id number] 2.16.840.1.660798.3.579.2.1259 1939 Unknown [id number] 2.16.840.1.022232.3.579.2.1259 1939 Unknown [id number] 2.16.840.1.853343.3.579.2.1259 1939 Unknown [id number] 2.16.840.1.521668.3.579.2.1259 1939 Unknown [id number] 2.16.840.1.974368.3.579.2.1259 1939 Unknown [id number] 2.16.840.1.918505.3.579.2.1259 1939 Unknown [id number] 2.16.840.1.915770.3.579.2.1259 Medicare [id number] 2.16 .840.1.293714.19 Social History Date Type Detail Facility Start: 05-30-2023 Sex Assigned At [facility] [employer] Other Start: 05-08-2023 Tobacco smoking status KYIS Ex-smoker [employer] Phone: End: 07-09-1996 History of tobacco use Current smoker [employer] Phone: End: 07-09-1996 History of tobacco use Cigarette Smoker [employer] Phone: Start: 05-08-2023 Tobacco use and exposure Smokeless tobacco non-user [employer] Phone: Start: 05-30-2023 Alcohol intake Ex-drinker (finding) [employer] Phone: Start: 05-30-2023 History of Social function [employer] Phone: Start: 05-08-2023 Alcohol Comment social [employer] Work Phone: Start: 1940 Sex Assigned At Not on file [employer] Work Phone: Medical Equipment Procedure Code Equipment Code Equipment Origin al Text Equipment Identifier Dates [employer] [id number] Start: 05-09-2023 Comment on above: Description: T12 Ref# [id number] by In Vitro route [id number] Clinical Notes 06-06-2021 to 01-07-2024 Carole Loyola LPN - 08/07/2023 10:57 AM ESTDischarge Instructions Note Date & Type Note Facility 01-07-2024 Note [facility] Subjective Jenni Villegas is a [...] of iron deficiency Heart valve transplanted Hyperthyroidism 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 [facility] 12-07-2023 Note Recently admitted victorina hayes at [facility] for Acute HFrEF and palpitations Coreg [...] function and electrolytes and she voiced understanding. [facility] II-III Pt is close to euvolemia via assessment today [facility] 12-07-2023 Note aortic valve replace ment [...] voiced understanding Continue all medications as prescribed [facility] 12-07-2023 Note Repeat TTE in 6 mirtha hs Pt denied any worsening symptoms since DC from [facility] and diuresis [facility] 12-07-2023 Note Stable, will monitor with routine echocardiogram in 6 months [facility] 12-07-2023 Note [facility] CARDIOLOGY PROGR ESS NOTE HPI: Jenni Villegas is a 83 y.o. female here for routine f/U and review of TTE and ED f/U Patient here for 6 mo follow up aortic and mitral valve stenosis, diastolic heart failure, and permanent afib. She had an echo last month. She presented to [facility] ED a few weeks ago for [...] She has history of prior admissions to [facility] with AF/RVR and diastolic heart failure decompensation. She has normal coronary angiogram in 2015. Patient here for 6 mo follow up aortic and mitral valve stenosis, diastolic heart failure, and permanent afib. She had an echo last month. She presented to [facility] ED a few weeks ago for [...] initiated. Patient agrees this plan. Emergency Department [facility] 5 Patient name: JENNI VILLEGAS Laboratory [...] has new requirement of 2L O2 by [place]. Case discussed with hospitalist who agreed to [...] She has history of prior admissions to [facility] with AF/RVR and diastolic heart failure [...] across the biop (more content not included)... [facility] 12-07-2023 Note Patient here for 6 m o follow up aortic and mitral valve stenosis, diastolic heart failure, and permanent afib. She had an echo last month. She presented to [facility] ED a few weeks ago for [...] All other systems reviewed and are negative. [facility] 12-07-2023 Note Continue to monitor AO valve with repeat TTE in 6 months [facility] 08-07-2023 History of Present illness Narrative [...] vomiting - Difficulty breathing or swallowing CALL 300 Other Instructions: - You should have a follow-up appointment scheduled already or a follow-up plan in place prior to leaving. - Call the office if you develop any problems or have any questions at: [facility] [phone] or Our 24 hour help line is also available: [phone] If you need refills,or have questions / concerns, outside of our office hours Sunday 8:00 a.m - 4:30 p.m. at [facility], please call [phone] to speak to Constance STEINER or leave a voicemail for her. *Remember to allow at least 48 business hours for medication refill requests. documented in this encounter [facility] Phone: 05-14-2023 Note Cardiology Clinic No te [...] of iron deficiency Heart valve transplanted Hyperthyroidism halfway current use of anticoagulant therapy Mixed anxiety [...] Review of Syste (more content not included)... [facility] 05-14-2023 Note Patient here for 6 [...] All other systems reviewed and are negative. [facility] 06-08-2022 Note HISTORY AND PHYSICAL EXAMINATION [...] go forward with her elective procedure. [facility] 06-08-2022 Note OPERATIVE NOTE OPERATION [...] ensuring mobility, phacoemulsification was performed in a [id number]-type fashion. After all nuclear material had been [...] the following day for postoperative care. [facility] 04-13-2022 Note OPERATIVE NOTE OPERATION [...] ensuring mobility, phacoemulsification was performed in a [id number]-hta-[id number]-type fashion. After all nuclear material had been [...] the following day for postoperative care. [facility] 04-13-2022 Note HISTORY AND PHYSICAL [...] go forward with her elective procedure. [facility] 06-06-2021 Evaluation note Encounter Date [...] Patient care instructions given in writting by [facility] Care At Home document [employer] Other Evaluation note* Diagnosis Lumbar spondylosis- Primary Lumbosacral spondylosis without myelopathy documented in this encounter [employer] Work Phone: History general Narrative - Reported* [...] see above list Hospitalization History chf x3 [employer] Other Summary Purpose Family History No Family [...] section and content) DATE CREATED AUTHOR 08/19/2021 [facility] dical Specialist DATE CREATED AUTHOR AUTHOR'S ORGANIZ ATION 12/26/2021 [facility] DATE CREATED AUTHOR AUTHOR'S ORGANIZ ATION 12/15/2022 [facility] DATE CREATED AUTHOR AUTHOR'S ORGANIZ ATION 05/18/2023 [facility] DATE CREATED AUTHOR AUTHOR'S ORGANIZ ATION 08/08/2023 [facility] DATE CREATED AUTHOR AUTHOR'S ORGANIZ ATION 01/08/2024 [facility] DATE CREATED AUTHOR AUTHOR'S ORGANIZ ATION 02/19/2024 [facility] dical Specialists EPIC REASON FOR VISIT (unrecogniz ed section and content) Specialty Diagnoses / Procedures Referred By Contac t Referred To Contact Diagnoses Lumbar spondylosis Lumbar spondylosis [M47.816] Procedures ID NJX DX/THER AGT PVRT FACET JT LMBR/SAC 1 LEVEL ID NJX DX/THER AGT PVRT FACET JT LMBR/SAC 2ND LEVEL B/L LUMBAR MEDIAL BRANCH BLOCK L3 L4 L5 B/L LUMBAR MEDIAL BRANCH BLOCK L3 L4 L5 Kd Macias MD [address] [place] [address] BRANDO ANDRES Phone: [phone] Referral ID Status Reason Start Date Expiration Date Visits Re quested Visits Authorized [id number] 1 1 PRN Active and Recently Administ [...] Care Teams (unrecognized sec tion and content) Bottom Worker Relationship Specialty Start Date End Date Jasvir León MD [address] [facility] [address] [place] [address] PCP - General Internal Medicine 05/07/23 FOR [...] BE BASED ON THE PRIMARY CLINICAL RECORDS. [employer] provides no warranty or guarantee of the accuracy or completeness of information in this document.
[2024-04-24 21:12] VITALS: BP 142/48; PULSE 76; TEMP 36.8; O2SAT 96; BMI 28.5
--- NOTE | 2024-04-24 21:18 | ED.CHESTPAI1 ---
HPI - Chest Pain General Chief Complaint: Chest Pain Stated Complaint: Chest Pain Time Seen by Provider: 04/24/24 21:00 Source: patient Mode of arrival: ambulance History of Present Illness HPI narrative: 84-year-old female to the emergency department with chief complaint of chest pain. Patient reports that approximately an hour prior to arrival she had an episode of chest pressure that radiated into her neck and her jaw. It was severe in nature. She rates it a 10 out of 10. It lasted approximately 20 to 30 minutes. It resolved spontaneously. There was some mild shortness of breath associated. She has never had an episode like this before. It is different than the rib pain she has been experiencing. There is no nausea, vomiting, diaphoresis. She reports that she does have a cardiac history. She does not believe she has any stents. On 3 L nasal cannula at baseline. Related Data Home Medications ?Medication ?Instructions ?Recorded ?Confirmed alprazolam 0.25 mg tablet 0.25 mg PO Q6H PRN anxiety 11/17/23 04/24/24 atorvastatin 20 mg tablet 20 mg PO QPM 11/17/23 04/24/24 bupropion HCl 150 mg tablet,12 hr 150 mg PO BID 11/17/23 04/24/24 sustained-release digoxin 125 mcg (0.125 mg) tablet 0.125 mg PO .QOD 11/17/23 04/25/24 escitalopram oxalate 10 mg tablet 10 mg PO DAILY 11/17/23 04/25/24 gabapentin 100 mg capsule 100 mg PO TID 11/17/23 04/25/24 insulin lispro protamine-lispro 8 unit subcut BID 11/17/23 04/25/24 100 unit/mL (75-25) subcutaneous pen omeprazole 40 mg capsule,delayed 40 mg PO DAILY 11/17/23 04/25/24 release ropinirole 0.25 mg tablet 0.25 mg PO QPM 11/17/23 04/25/24 torsemide 20 mg tablet 20 mg PO DAILY 11/17/23 04/25/24 Previous Rx's ?Medication ?Instructions ?Recorded carvedilol 12.5 mg tablet (Coreg) 12.5 mg PO BID #60 tabs 11/18/23 spironolactone 25 mg tablet 25 mg PO DAILY #30 tabs 11/18/23 (Aldactone) oxycodone-acetaminophen 5 mg-325 1 tab PO Q8H PRN pain 4 days #10 04/14/24 mg tablet (Percocet) tabs Allergies Allergy/AdvReac Type Severity Reaction Status Date / Time codeine Allergy Intermediate Unknown Verified 04/24/24 21:16 Penicillins Allergy Intermediate Unknown Verified 04/24/24 21:16 [facility] Medical History (Updated 04/25/24 @ 00:28 by Kuldip Carrillo MD) Chronic hypoxic respiratory failure ?J96.11 - Chronic respiratory failure with hypoxia (ICD-10) Multiple rib fractures ?S22.49XA - Multiple fractures of ribs, unspecified side, initial encounter for closed fracture (ICD-10) Type 2 diabetes mellitus with hyperglycemia ?E11.65 - Type 2 diabetes mellitus with hyperglycemia (ICD-10) Aortic stenosis, moderate ?I35.0 - Nonrheumatic aortic (valve) stenosis (ICD-10) Persistent atrial fibrillation ?I48.19 - Other persistent atrial fibrillation (ICD-10) Chronic heart failure with preserved ejection fraction (HFpEF) ?I50.32 - Chronic diastolic (congestive) heart failure (ICD-10) Hypertension ?I10 - Essential (primary) hypertension (ICD-10) HLD (hyperlipidemia) ?E78.5 - Hyperlipidemia, unspecified (ICD-10) CKD (chronic kidney disease) stage 3, GFR 30-59 ml/min ?N18.30 - Chronic kidney disease, stage 3 unspecified (ICD-10) Hypothyroid ?E03.9 - Hypothyroidism, unspecified (ICD-10) Acute thoracic back pain ?M54.6 - Pain in thoracic spine (ICD-10) Closed compression fracture of L1 vertebra ?S32.010A - Wedge compression fracture of first lumbar vertebra, initial encounter for closed fracture (ICD-10) Lung mass ?R91.8 - Other nonspecific abnormal finding of lung field (ICD-10) Compression fracture of L1 lumbar vertebra ?S32.010A - Wedge compression fracture of first lumbar vertebra, initial encounter for closed fracture (ICD-10) Acute pain of left foot ?M79.672 - Pain in left foot (ICD-10) 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 ?F32.89 - Other specified depressive episodes (ICD-10) Anxiety ?F41.9 - Anxiety disorder, unspecified (ICD-10) Diabetes ?E11.9 - Type 2 diabetes mellitus without complications (ICD-10) Atrial fibrillation ?I48.91 - Unspecified atrial fibrillation (ICD-10) Surgical History (Updated 11/22/23 @ 00:00 by ) Status post aortic valve repair ?Z98.890 - Other specified postprocedural states (ICD-10) S/P ablation of atrial fibrillation ?Z98.890 - Other specified postprocedural states (ICD-10) ?Z86.79 - Personal history of other diseases of the circulatory system (ICD-10) History of carpal tunnel surgery of right wrist ?Z98.890 - Other specified postprocedural states (ICD-10) H/O: hysterectomy ?Z90.710 - Acquired absence of both cervix and uterus (ICD-10) Aortic valve replaced ?Z95.2 - Presence of prosthetic heart valve (ICD-10) History of cholecystectomy ?Z90.49 - Acquired absence of other specified parts of digestive tract (ICD-10) Family History (Updated 11/17/23 @ 14:56 by Aylin Nobles) Mother Family history of CHF (congestive heart failure) Father Family history of diabetes mellitus Sister Family history of diabetes mellitus Son Family history of myocardial infarction Social History (Updated 11/17/23 @ 14:57 by Aylin Nobles) Within the past year, how often did you have a drink containing alcohol: monthly or less Within the past year, how many standard drinks containing alcohol did you have on a typical day: 1 or 2 Within the past year, how often did you have six or more drinks on one occasion: never Total score: 0 Score interpretation: A score less than 3 is consistent with normal alcohol consumption. Smoking status: Former smoker Non-prescribed substance use: denies use Previous occupational history: retired Highest level of school completed/degree received: high school graduate Are you now , , , , never or living with a partner: In a typical week, how many times do you talk on the telephone with family, friends, or neighbors: 3 or more times per week How often do you get together with friends or relatives: 3 or more times per week How often do you attend religion or mandaeism services: 4 or more times per year Do you belong to any clubs or organizations such as religion groups unions, [facility] or athletic groups, or school groups: no Total score: 2 Score interpretation: A score of greater than or equal to 2 indicates the lowest level of social isolation. Little interest or pleasure in doing things: not at all Feeling down, depressed, or hopeless: not at all Feel stressed/tense/nervous/anxious/difficulty sleeping: not at all Gender Identity: female Exam Narrative Exam Narrative: VITALS: I have reviewed the triage vital signs. GENERAL: Elderly female in no acute distress NEURO: Alert and oriented. Moves all extremities. Face is symmetric and expressive. EYES: PERRL. No scleral icterus or conjunctival injection. No discharge. HENT: Normocephalic, atraumatic. Hearing is grossly intact. Nares grossly patent and without discharge. Mucous membranes moist. NECK: No JVD. Patient moves neck without restriction. CARDIO: Rhythm regular. Normal rate. No murmur, rub, or gallop. Pulses equal bilaterally in the upper and lower extremity. No lower extremity edema. PULM: Lungs clear to auscultation in all sher. No wheezes, rales, or rhonchi. No conversational dyspnea. No splinting, stridor, or accessory muscle use. GI/: Abdomen is soft and non-tender. Normoactive bowel sounds. EXTREMITIES: Symmetric muscle bulk. No joint swelling. No clubbing, cyanosis, or deformity. SKIN: Warm and dry. Normal turgor. No rash or lesions appreciated. PSYCH: Mood, affect, and interaction is appropriate to the setting. Constitutional Vital Signs, click to edit/add: Last Vital Signs Temp 98.2 F 04/24/24 21:12 Pulse 85 04/24/24 23:45 Resp 22 H 04/24/24 23:45 BP 140/88 04/24/24 23:45 Pulse Ox 98 04/24/24 23:45 O2 Del Method Room Air 04/24/24 21:12 O2 Flow Rate 3 04/24/24 23:45 Course Vital Signs Vital signs: Vital Signs Temperature 98.2 F 04/24/24 21:12 Pulse Rate 76 04/24/24 21:12 Respiratory Rate 18 04/24/24 21:12 Blood Pressure 142/48 H 04/24/24 21:12 Pulse Oximetry 96 04/24/24 21:12 Oxygen Delivery Method Room Air 04/24/24 21:12 Oxygen Delivery Flow Rate 3 04/24/24 21:12 Temperature 98.2 F 04/24/24 21:12 Pulse Rate 85 04/24/24 23:45 Respiratory Rate 22 H 04/24/24 23:45 Blood Pressure 140/88 04/24/24 23:45 Pulse Oximetry 98 04/24/24 23:45 Oxygen Delivery Method Room Air 04/24/24 21:12 Oxygen Delivery Flow Rate 3 04/24/24 23:45 MDM - Chest Pain MDM Narrative Medical decision making narrative: 84-year-old female to the emergency department chief complaint of episode of chest pressure. Vital stable, the patient is afebrile. Cardiac workup is initiated. She is currently asymptomatic. Aspirin given. CBC and chemistry reviewed. Baseline CKD. Her initial troponin is normal. Previous EKG was compared to her EKG today. She has longstanding ST depressions in the inferior lateral leads. She has some flattening/return to isoelectric baseline of the ST segments in 1 and aVL. Will repeat EKG. Chest x-ray shows developing pneumonia adjacent to her rib fractures. She has community-acquired risk factors. Rocephin and azithromycin were initiated. Repeat EKG has concerning now slight ST elevation in I and aVL. Patient reevaluated at the bedside. Hemodynamically stable. She has no chest pain. Baseline shortness of breath. I called and discussed the case with Dr. Haynes who is the on-call supervisor coke handling at [facility]. He agrees with my assessment that the dynamic changes in her EKG from her previous in November are concerning and that [place] [facility] [place] and intervention if necessary. Case was discussed with the on-call hospitalist Dr. Carter. He accepts the patient to his service. Patient and family agree with this plan. Transport to be arranged. Kuldip Carrillo DO, FAAEM Heart Score for Major Cardiac Event History: Example factors for history - pattern of chest pain, onset, duration, relation with exercise, stress or cold, localization, concomitant symptoms. reaction to sublingual nitrates, [] Highly suspicious +2 [x] Moderately suspicious +1 [] Slightly suspicious 0 EKG: [x] Significant ST-Depression +2 [] Non specific repolarization disturbance +1 [] Normal 0 Age: [x] >= 65 +2 [] 45-65 + 1 [] <45 0 Risk Factors: (HLD, HTN, DM, Cigarette Smoking, Pos Family Hx, Obesity) [x] >3 risk factors or hx of atherosclerotic disease + 2 [] 1-2 risk factors + 1 [] No risk factors known 0 Troponin: [] >= 3X normal + 2 [] 1-3X normal + 1 [x] <= Normal 0 [] 0-3 Points 0.9 - 1.7% risk of major adverse cardiac event in 6 weeks [] 4-6 Points 12-16.6% risk of major adverse cardiac event in 6 weeks [x] 7-10 Points 50-65% risk of major adverse cardiac event in 6 weeks [] 0-3 Points with 2 sets of negative cardiac markers <1% risk of major adverse cardiac event in 30 days. Critical Care Procedure Note Authorized and Performed by: Kuldip Carrillo DO Total critical care time: 35 min Due to a high probability of clinically significant, life threatening deterioration, the patient required my highest level of preparedness to intervene emergently and I personally spent this critical care time directly and personally managing the patient. This critical care time included obtaining a history; examining the patient; pulse oximetry; ordering and review of studies; arranging urgent treatment with development of a management plan; evaluation of patient's response to treatment; frequent reassessment; and, discussions with other providers. This critical care time was performed to assess and manage the high probability of imminent, life-threatening deterioration that could result in multi-organ failure. It was exclusive of separately billable procedures and treating other patients and teaching time. Please see MDM section and the rest of the note for further information on patient assessment and treatment. Medical Records Data Attestation: I reviewed the patient's medical records. Lab Data Attestation: I reviewed the patient's lab results. Labs: Lab Results 10/17/24 10/17/24 10/17/24 Range/Units 21:19 21:36 22:20 WBC 8.9 (4.0-11.0) 10^3/uL RBC 3.23 L (4.20-5.40) 10^6/uL Hgb 9.6 L (12.0-16.0) g/dL Hct 31.3 L (36.0-48.0) % MCV 96.9 (81.0-99.0) fL MCH 29.7 (26.7-34.0) pg MCHC 30.7 (29.9-35.2) g/dL RDW 17.1 H (11.0-15.0) % Plt Count 268 (150-450) 10^3/uL MPV 9.8 (9.5-13.5) fL Neut % (Auto) 77.6 H (43.0-75.0) % Lymph % (Auto) 8.7 L (20.5-60.0) % [place] % (Auto) 8.5 (1.7-12.0) % Eos % (Auto) 3.0 (0.9-7.0) % Baso % (Auto) 0.7 (0.2-2.0) % Neut # (Auto) 6.9 H (1.4-6.5) 10^3/uL Lymph # (Auto) 0.8 L (1.2-3.8) 10^3/uL [place] # (Auto) 0.8 (0.3-0.8) 10^3/uL Eos # (Auto) 0.3 (0.0-0.7) 10^3/uL Baso # (Auto) 0.1 (0.0-0.1) 10^3/uL Abs Immat Gran (auto) 0.13 H (0.00-0.03) 10^3/uL Imm/Tot Granulo (auto) 1.5 H (0.0-0.5) % PT 11.5 (9.0-11.6) sec INR 1.09 APTT 28.3 (22.3-36.2) sec Sodium 138 (136-145) mmol/L Potassium 5.0 (3.5-5.1) mmol/L Chloride 103 (98-107) mmol/L Carbon Dioxide 24.7 (21.0-32.0) mmol/L Anion Gap 15.3 BUN 33.0 H (7.0-18.0) mg/dL Creatinine 1.45 H (0.55-1.02) mg/dL Est GFR ( Amer) 42 L (>=60 mL/min/1.73m^2) Est GFR (Non-Af Amer) 34 L (>=60 mL/min/1.73m^2) BUN/Creatinine Ratio 22.8 Glucose 165 H (74-106) mg/dL Calcium 8.8 (8.5-10.1) mg/dL Total Bilirubin 0.6 (0.2-1.0) mg/dL AST 26 (15-37) U/L ALT 12 L (14-59) U/L Alkaline Phosphatase 107 (46-116) U/L Troponin I High Sens 21.5 21.6 (4.0-51.3) pg/mL Total Protein 7.6 (6.4-8.2) g/dL Albumin 2.5 L (3.4-5.0) g/dL Globulin 5.1 g/dL Albumin/Globulin Ratio 0.5 Imaging Data Chest x-ray: Attestation: I have reviewed the pertinent imaging results. ECG Data Attestation: I personally reviewed and interpreted this ECG as follows: (Atrial fibrillation at a rate of 80. Inferior and lateral ST depressions. Normal QTc at 380. ) Discharge Plan Discharge Chief Complaint: Chest Pain Clinical Impression: Chest pain, Pneumonia, Abnormal ECG Patient Disposition: [facility] Time of Disposition Decision: 00:27 Discharge Location: [facility] Condition: Good Mode of Transportation: EMS Prescriptions / Home Meds: No Action oxycodone-acetaminophen [Percocet] 5-325 mg tablet 1 tab PO Q8H PRN (Reason: pain) 4 Days Qty: 10 0RF alprazolam 0.25 mg tablet 0.25 mg PO Q6H PRN (Reason: anxiety) atorvastatin 20 mg tablet 20 mg PO QPM bupropion HCl 150 mg tablet sustained-release 12 hr 150 mg PO BID digoxin 125 mcg (0.125 mg) tablet 0.125 mg PO .QOD insulin lispro protamin-lispro 100 unit/mL (75-25) insulin pen 8 unit SUBCUT BID omeprazole 40 mg capsule,delayed release(DR/EC) 40 mg PO DAILY ropinirole 0.25 mg tablet 0.25 mg PO QPM torsemide 20 mg tablet 20 mg PO DAILY escitalopram oxalate 10 mg tablet 10 mg PO DAILY gabapentin 100 mg capsule 100 mg PO TID carvedilol [Coreg] 12.5 mg tablet 12.5 mg PO BID Qty: 60 0RF Rx Instructions: must administer with a meal/food spironolactone [Aldactone] 25 mg tablet 25 mg PO DAILY Qty: 30 0RF Print Language: Botswanan Referrals: JHONATAN LUCIA [Primary Care Provider] - 1 week
[2024-04-24 22:07] LABS: Alanine Aminotransferase 12 U/L (14-59); Albumin Globulin Ratio 0.5; Albumin Level 2.5 g/dL (3.4-5.0); Alkaline Phosphatase 107 U/L (46-116); Anion Gap 15.3; BUN Creatinine Ratio 22.8; Bilirubin Total 0.6 mg/dL (0.2-1.0); Calcium 8.8 mg/dL (8.5-10.1); Carbon Dioxide 24.7 mmol/L (21.0-32.0); Chloride 103 mmol/L (98-107); Estimated GFR (African America 42 (>=60 mL/min/1.73m^2); Estimated GFR (Non-African Ame 34 (>=60 mL/min/1.73m^2); Globulin 5.1 g/dL; Glucose 165 mg/dL (74-106); Sodium 138 mmol/L (136-145); Total Protein 7.6 g/dL (6.4-8.2); Troponin I High Sensitivity 21.5 pg/mL (4.0-51.3)
[2024-04-24 22:08] LABS: Aspartate Amino Transferase 26 U/L (15-37)
[2024-04-24 22:10] LABS: INR 1.09; Partial Thromboplastin Time 28.3 sec (22.3-36.2); Prothrombin Time 11.5 sec (9.0-11.6)
[2024-04-24 22:22] VITALS: BP 134/65; PULSE 72; O2SAT 93
[2024-04-24 22:35] LABS: Basophils Absolute Auto 0.1 10^3/uL (0.0-0.1); Basophils Percent Auto 0.7 % (0.2-2.0); Eosinophils Absolute Auto 0.3 10^3/uL (0.0-0.7); Hematocrit 31.3 % (36.0-48.0); Hemoglobin 9.6 g/dL (12.0-16.0); Immature Granulocytes Abs Auto 0.13 10^3/uL (0.00-0.03); Immature Granulocytes Pct Auto 1.5 % (0.0-0.5); Lymphocytes Absolute Auto 0.8 10^3/uL (1.2-3.8); Lymphocytes Percent Auto 8.7 % (20.5-60.0); Mean Corpuscular HGB Conc 30.7 g/dL (29.9-35.2); Mean Corpuscular Hemoglobin 29.7 pg (26.7-34.0); Mean Corpuscular Volume 96.9 fL (81.0-99.0); Mean Platelet Volume 9.8 fL (9.5-13.5); Monocytes Absolute Auto 0.8 10^3/uL (0.3-0.8); Monocytes Percent Auto 8.5 % (1.7-12.0); Neutrophils Absolute Auto 6.9 10^3/uL (1.4-6.5); Neutrophils Percent Auto 77.6 % (43.0-75.0); Platelet Count 268 10^3/uL (150-450); Red Blood Count 3.23 10^6/uL (4.20-5.40); Red Cell Distribution Width 17.1 % (11.0-15.0); White Blood Count 8.9 10^3/uL (4.0-11.0)
[2024-04-24 22:56] LABS: Troponin I High Sensitivity 21.6 pg/mL (4.0-51.3)
--- NOTE | 2024-04-24 23:01 | ECG_ITS ---
[facility] Test Date: 2024-04-24 Pat Name: KATHY VILLEGAS Department: Room: - Gender: Female [employer]: : 1940 Requested By: JHONATAN LUCIA Order Number: [id number] Reading MD: MIKE HUGO Measurements Intervals [place] Rate: 90 P: -29096 AL: -21811 QRS: 92 QRSD: 90 T: -42 QT: 336 QTc: 383 Interpretive Statements 1210 Atrial fibrillation [address] depression Inferolateral ST depression, can't exclude myocardial ischemia 7102 Moderate right axis deviation 9150 abnormal ECG Electronically Signed On 04-27-2024 12:33:11 EDT by MIKE HUGO
[2024-04-24 23:45] VITALS: BP 140/88; PULSE 85; O2SAT 98
[2024-04-25] MEDS: ASPIRIN 81 MG TAB.CHEW 324 MG PO (00:33)
[2024-04-25] MEDS: OXYCODONE HCL/ACETAMINOPHEN 5MG/325MG 1 TAB PO (00:34)
[2024-04-25] MEDS: CEFTRIAXONE 1,000 MG in 0.9 % SODIUM CHLORIDE 50 ML 100 MG IV (00:34)
[2024-04-25] MEDS: AZITHROMYCIN 250 MG TABLET 500 MG PO (00:42)
--- NOTE | 2024-04-25 01:14 | PC.NURSE ---
this patient has been updated about 2 places that will be possible admission for you but this admission will be tomorrow morning. the 2 places are [facility] in [place], [place] [phone] and [facility] in [place], [place] P;[phone] C: [phone] Luis F Aguirre
[2024-04-25 01:25] VITALS: BP 156/94; PULSE 76; TEMP 36.7; O2SAT 96
--- NOTE | 2024-04-25 01:49 | PC.NURSE ---
this patient awake and alert and this patient denies any chest pain or shortness of breath. patient report and transfer papers given to ems crew. i called patient report to [facility] [phone] and spoke with Salvatore MALIK, patient report given to her
[2024-04-25 02:46] LABS: Digoxin 1.5 ng/mL (0.9-2.0)
--- NOTE | 2024-04-25 09:21 | SWNOTE1 ---
SW had email from [place], pt is from [place], and they were asking how patient was doing. SW updated [facility] that pt was transferred to [facility]. DORINA let [facility] know this information for continuity of care.
== END 2024-04-25 01:40 | disposition short-term general hospital (02) ==
PROVIDERS: Emergency Provider Student in an Organized Health Care Education/Training Program; PCP Internal Medicine
DX: R07.9 Chest pain, unspecified (principal); J18.9 Pneumonia, unspecified organism; R94.31 Abnormal electrocardiogram [ECG] [EKG]; Z87.891 Personal history of nicotine dependence; Z99.81 Dependence on supplemental oxygen
CPT/HCPCS: 36415; 71045; 80053; 80162; 84484; 85025; 85610; 85730; 93005; 96365; 99285; J0696

== ENCOUNTER 2024-05-07 09:54 | Outpatient (OUT) | payer MEDICARE, OTHER, SELFPAY ==
--- NOTE | 2024-05-07 10:00 | CA_ITS ---
Patient Name: KATHY VILLEGAS MR#: [id number] : 1940 Exam Date: 05/07/2024 Ordering Doctor: DR JOSEFINA CHAO M.D. ECHOCARDIOGRAM REPORT PROCEDURE: CA ECHO DOPPLER COMPLETE INDICATIONS: Chronic diastolic heart failure, pulmonary hypertension COMPARISON: None. DESCRIPTION: COMPLETE ECHOCARDIOGRAM Real-time transthoracic echocardiography with 2D, M-mode, spectral and color flow Doppler performed. QUALITY: Technical quality was good. LEFT VENTRICLE: Normal chamber size. Moderate concentric left ventricular hypertrophy. Global left ventricular systolic function is normal.Estimated left ventricular ejection fraction is 50-55%. Abnormal septal motion due to right ventricle pressure/volume overload LV EF: DIASTOLIC: ATRIAL SEPTUM: ASD vs PFO Doppler studies reveal an intra-cardiac shunt. Unable to calculate QP:QS accurately due to severe aortic stenosis LEFT ATRIUM: Severe dilatation. RIGHT ATRIUM: Severe dilatation. RIGHT VENTRICLE: Moderate dilatation. Decreased right ventricular systolic function. TRICUSPID VALVE: Normal mobility and thickness. No stenosis with severe regurgitation. Severe pulmonary hypertension.RVSP 85mmHg MITRAL VALVE: Thickened with decreased mobility. Mild mitral valve stenosis( Mean PG 3 mmHg, MVA by P1/2 time 2.6 cm2). Moderate mitral annular calcification. Mild mitral regurgitation. AORTIC VALVE: Bio-Prosthetic valve appears well seated in the aortic position with abnormal doppler flow. Severely diminished mobility. Doppler velocity suggest severe aortic valve stenosis. Severe stenosis of the bioprosthetic valve. DVI 0.14, FELICIAT 0.4cm2, Vmax 3.6m/s, Mean gradient 28mmHg. Mild aortic regurgitation. AORTIC ROOT: Normal diameter and appearance. PULMONIC VALVE: Normal thickness and mobility. No stenosis. Trivial regurgitation. PERICARDIUM: No evidence of pericardial effusion. IVC: Mild dilatation. Measuring 2.2cm, with partial collapse. PLEURA: CONCLUSION: Moderate concentric left ventricular hypertrophy. Global left ventricular systolic function is normal. Estimated left ventricular ejection fraction is 50-55%. Abnormal septal motion due to right ventricle pressure/volume overload ASD vs PFO: Doppler studies reveal an intra-cardiac shunt. Unable to calculate QP:QS accurately due to severe aortic stenosis Moderate right ventricle dilatation. Decreased right ventricular systolic function Severe tricuspid regurgitation. Severe pulmonary hypertension.RVSP 85mmHg Mild mitral valve stenosis( Mean PG 3 mmHg, MVA by P1/2 time 2.6 cm2). Moderate mitral annular calcification. Mild mitral regurgitation. 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 DVI 0.14, FELICITA 0.4cm2, Vmax 3.6m/s, Mean gradient 28mmHg. Mild aortic regurgitation. Adult Echocardiography Procedure Report Left Ventricle LVEDD (3.7 - 5.6 cm): 3.42 cm LVESD (2.2 - 4.0 cm): 2.64 cm LVIVS thickness (0.6 - 1.2 cm): 1.45 cm LVPW thickness (0.5 - 1.0 cm): 1.47 cm e': 0.10 m/s E - e': 16.16 LVOT Max Gradient: 1.08 mm[Hg] LVOT Area (cm2): 0.52 m/s Peak Velocity (LVOT): 0.52 m/s Mean Velocity (LVOT): 0.33 m/s LVOT Diameter 1.83 cm Left Ventricular Ejection Fraction: 59.74 % Left Atrium LA Volume Index (2D A2C): 52.36 ml/m2 Left Atrium Systolic Dimension: 5.51 cm Mitral Valve MV E to A Ratio: MV Max Gradient: MV Mean Gradient: Mitral Valve A-Wave Peak Velocity: Mitral Valve E-Wave Peak Velocity: 1.67 m/s Cardiovascular Orifice Area: Right Ventricle RV Internal Diastolic Dimension: 4.32 cm, 4.29 cm Aorta AO Root Diam: 2.54 cm Ascending Ao Diam: 3.08 cm Aortic Valve AoV Area (Peak Merrick): 0.39 cm2, 0.38 cm2, 0.41 cm2, 0.41 cm2 AoV Area (VTI): 0.39 cm2, 0.37 cm2 Deceleration [place]: 2.99 m/s2 Pressure Half-Time: 341.35 ms Peak Velocity(Antegrade Flow): 3.62 m/s, 3.24 m/s, 3.55 m/s, 3.32 m/s Peak Gradient(Antegrade Flow): 52.50 mm[Hg], 41.89 mm[Hg], 50.44 mm[Hg], 44.00 mm[Hg] Mean Velocity(Antegrade Flow): 2.44 m/s, 2.33 m/s, 2.58 m/s Mean Gradient(Antegrade Flow): 27.89 mm[Hg], 24.83 mm[Hg], 30.31 mm[Hg] Velocity Time Integral: 79.76 cm, 68.62 cm, 78.70 cm Tricuspid Valve Peak Velocity (Regurgitant Flow): 3.90 m/s, 3.77 m/s, 4.07 m/s, 4.68 m/s, 4.51 m/s, 4.19 m/s Peak Velocity: Pulmonic Valve Mean Gradient: 2.96 mm[Hg], 3.24 mm[Hg], 3.27 mm[Hg] Mean Velocity: 0.81 m/s, 0.85 m/s, 0.81 m/s Peak Velocity: 1.30 m/s Peak Gradient: 5.68 mm[Hg], 6.80 mm[Hg], 7.94 mm[Hg] Right Atrium Right Atrium Systolic Pressure: 105.05 ml, 105.05 ml Dictated by: Pankaj Todd MD on 05/07/2024 at 17:41 Approved by: Pankaj Todd MD on 05/07/2024 at 18:15
--- OUTSIDE RECORDS SUMMARY | 2024-05-07 10:14 | XMS_ITS | CCD ---
Author Organization [facility] Care Team Providers Care Sand Caster Apprentice Name Role Phone GRETTA OMALLEY Admitting Unavailable RGETTA OMALLEY Attending Unavailable JASVIR LEÓN Referring Unavailable JASVIR LEÓN Primary Care Unavailable Mariam Ward Unavailable DR JASVIR LEÓN Primary Care Unavailable JOSEFINA NOVA Consulting Unavailable JOSEFINA NOVA Attending Unavailable JOSEFINA NOVA Admitting Unavailable KHARI, DR ISRAEL Primary Care Unavailable JOSEFINA NOVA Attending Unavailable JOSEFINA NOVA Admitting Unavailable ELSIE ., DR MEJIA Primary Care Unavailable JOSEFINA NOVA Attending Unavailable JOSEFINA NOVA Admitting Unavailable KHARI, DR ISRAEL Primary Care Unavailable DAWOOD ALEXANDRE Consulting Unavailable DAWOOD ALEXANDRE Attending Unavailable DAWOOD ALEXANDRE Admitting Unavailable KHARI, DR ISRAEL Primary Care Unavailable DAWOOD ALEXANDRE Admitting Unavailable DAWOOD ALEXANDRE Consulting Unavailable DAWOOD ALEXANDRE Attending Unavailable ELSIE ., DR MEJIA Attending [...] Unavailable NICK ., DR CORNEJO Admitting Unavailable ROSINA MENENDEZ Consulting Unavailable CALLI ., DR SHAYY Azul Consulting Unavailable CALLI ., DR SHAYY Azul Attending Unavailable KHARI, DR ISRAEL Primary Care Unavailable CALLI ., DR SHAYY Azul Admitting Unavailable GALO, DR TONIA Mendiola Consulting Unavailwagner HAWKINS, DR MEENA Boucher Consulting Unavailable VANESSA DALLAS Consulting Unavailable BRENT PERALTA Consulting Unavailable KHARI, DR ISRAEL Primary Care Unavailable HOY ., DR MEJIA Attending Unavailable HOY ., DR MEJIA Admitting Unavailable HOY ., DR MEJIA Consulting Unavailable HAY ., DR CORNEJO Consulting Unavailable SADIE GARCIA Consulting Unavailable MEENA WOOTEN Consulting Unavailable AMANDA DANIELS Consulting Unavailable FELIPA ARANDA Consulting Unavailable GRETTA OMALLEY Consulting Unavailable SHAHRAM, GRETTA Attending Unavailable SHAHRAM, GRETTA Admitting Unavailable LEÓN, DR ISRAEL Primary Care Unavailable DYAN, BRENT Consulting Unavailable DYAN, BRENT Attending Unavailable DYAN, BRENT Admitting Unavailable LEÓN, DR ISRAEL Primary Care Unavailable DYAN, BRENT Consulting Unavailable DYAN, BRENT Attending Unavailable DYAN, BRENT Admitting Unavailable LEÓN, DR ISRAEL Primary Care Unavailable YRIS, FARZANEH Consulting Unavailable YRIS, FARZANEH Attending Unavailable HOY ., DR MEJIA Primary Care Unavailable YRIS, FARZANEH Admitting Unavailable LENÓ, DR ISRAEL Primary Care Unavailable WEST, DR MEENA Boucher Consulting Unavailable VERNA, AHMAD Attending Unavailable VERNA, AHMAD Admitting Unavailable VERNA, AHMAD Consulting Unavailable Jasvir León MD Primary Care Provider BAHKD Judd Admitting Unavailable BAHKD Judd Attending Unavailable JASVIR LEÓN B Primary Care Unavailable BAHKD Judd Attending Unavailable JASVIR LEÓN B Primary Care Unavailable BAHBinta, KD M Admitting Unavailable JASVIR LEÓN B Primary Care Unavailable BAHKD Judd Attending Unavailable JASVIR LEÓN B Primary Care Unavailable BAHN, KD M Admitting Unavailable JOSEFINA NOVA Attending Unavailable YRIS, FARZANEH Attending Unavailable RAMY IBRAHIM Attending Unavailable JASVIR LEÓN Attending Unavailable DAWOOD ALEXANDRE Attending Unavailable RALF FERGUSON Referring Unavailable JASVIR LEÓN Attending Unavailable SARAH RODRIGUEZ Attending Unavailable JASVIR LEÓN Attending Unavailable JASVIR LEÓN Attending Unavailable ODALYS RUSSO Attending Unavailable JASVIR LEÓN Referring Unavailable JEWELL León Primary Care Provider DO Lalo Carter Admit Provider MD Javan Gruber Attending Provider Jasvir León MD Primary Care Provider Jasvir León MD Unavailable [phone] Isaura Childs Consulting Unavailable Javan Gruber Attending Unavailable Jasvir León Primary Care Unavailable Lalo Carter Admitting Unavailabl Ingrid Hussein Consulting Unavailable Palmira Lowery Consulting Unavailable Jaron Sands Consulting Unavail able Christofer Hairston Consulting Unavailable Juwan Coelho Consulting Unavailab Bridgette Peguero Consulting Unavailable Becky Santiago Consulting Unavailable Marisol Fox Consulting Unavailab Genet Barclay Consulting Unavailable Angella Mac Consulting Unavailable Allergies Allergy Classification Reported Allergen(s) Allergy Type Date of Onset Reaction(s) Facility (5 sources) Codeine; Translations: [CODEINE] Drug Allergy 4 abdominal pain [facility] Repository (5 sources) Penicillins; Translations: [PENICILLINS] Drug allergy (disorder) 2 rash [facility] Repository (1 source) penicillian Propensity to adverse reactions rash [employer] Other (1 source) codiene Propensity to adverse reactions abdominal pain [facility] [employer] Other (2 sources) sacubitril / valsartan Drug Allergy 2 [facility] Repository (2 sources) Codeine Drug Allergy 3 Other (See Comments) [place] (1 source) Penicillins Propensity to adverse reactions to drug 3 Sita MICHAELS Work Phone: (3 sources) sacubitril / valsartan; Translations: [SACUBITRIL-ARJUN SARTAN] Drug Allergy 2 Sita MICHAELS (1 source) Penicillin G Drug Allergy 3 Rash, Other [facility] (1 source) Codeine Drug Allergy 4 [facility] Repository (1 source) Penicillins Drug allergy (disorder) 4 [facility] Repository Medications Current Medications Medication Drug Class(es) Dates Sig (Normalized) Sig (Original) acetaminophen 325 mg oral tablet (2 sources) take 1 tablet by mouth every six hours as needed acetaminophen (Tylenol) 325 MG tablet Take 325 mg by mouth every 6 (six) hours if needed. Active take 2 tablets by mo uth every six hours as needed for pain acetaminophen (TYLENOL) 325 MG tablet Ta ke 2 tablets by mouth every 6 hours as needed for Pain 0 Active acetaminophen 325 mg / HYDROcodone bitartrate 5 mg oral tablet (1 source) Opioid Agonist take 1 tablet by mouth every six hours as needed for pain HYDROcodone-acetaminophen (NORCO) 5-325 MG per tablet Indications: Pain Take 1 tablet by mouth every 6 hours as needed for Pain. Indications: Pain 0 Active acetaminophen 325 mg / oxyCODONE hydrochloride 5 mg oral tablet (1 source) Opioid Agonist Start: take 1 tablet by mouth every six hours Oxycodone-Acetaminophen Active 1 TAB PO Every 6 hours April 25, 2024 12:00am ALPRAZolam 0.25 mg oral tablet (4 sources) Benzodiazepine Start: End: take 0.25 mg by mouth every six hours Alprazolam Active 0.25 MG PO Every 6 hours April 25, 2024 12:00am take 1 tablet by codi every six hours as needed for anxiety ALPRAZolam (XANAX) 0.25 MG tablet Take 1 tablet by mouth every 6 hours as needed for Anxiety. 0 Active take 1 tablet by mouth every eig ht hours Xanax 0.25 MG 1 tablet Orally Three times a day Active amLODIPine 5 mg oral tablet (2 sources) Dihydropyridine Calcium Channel Soumya Start: 02-09-2023 take 1 tablet by mouth in the morning amLODIPine (Norvasc) 5 MG tablet Take 5 mg by mouth in the morning. 02/09/2023 Active aspirin 81 mg delayed release oral tablet (2 sources) Platelet Aggregation Inhibitor, Nonsteroidal Anti-inflammatory Drug Start: 10-16-2023 take 81 mg by mouth once daily Aspirin Active 81 MG PO Daily October 16, 2023 12:00am take 1 tablet by mouth once kira y aspirin 81 MG chewable tablet Take 1 tablet by mouth daily 0 Active atorvastatin 20 mg oral tablet (3 sources) HMG-CoA Reductase Inhibitor Start: 05-24-2023 take 20 mg by mouth once daily Atorvastatin Active 20 MG PO Daily October 16, 2023 12:00am 12 hr buPROPion hydrochloride 150 mg extended release oral tablet (4 sources) Aminoketone Start: 10-16-2023 take 150 mg by mouth twice daily Bupropion Hcl Active 150 MG PO Twice daily October 16, 2023 12:00am Start: 12-27-2022 take 1 tablet by codi th every twelve hours in the morning buPROPion SR (Wellbutrin SR) 150 MG 12 hr tablet Indications: Depression with anxiety Take 1 tablet (150 mg) by mouth in the morning and 1 tablet (150 mg) before bedtime. 200 tablet 3 12/27/2022 Active take 1 tablet by codi th twice daily buPROPion (WELLBUTRIN SR) 150 MG extended release tablet Take 1 tablet by mouth 2 times daily 0 Active CALCIUM CARB-CHOLECALCIFEROL PO (1 source) take 600 mg by mouth once daily CALCIUM CARB-CHOLECALCIFEROL PO Take 600 mg by mouth daily 600-200 mg-unit 0 Active calcium carbonate 1500 mg / cholecalciferol 200 unt oral tablet (1 source) Vitamin D Calcium Carb-Cholecalciferol 600-200 MG-UNIT tablet Take by mouth 1 (one) time each day at the same time. Active carvedilol 12.5 mg oral tablet (4 sources) alpha-Adrener gic Soumya, beta-Adrenerg ic Soumya Start: 2023 take 1 tablet by mouth in the morning carvedilol (Coreg) 12.5 MG tablet Indications: Chronic right-sided heart failure (HCC) (CMS/HCC) Take 1 tablet (12.5 mg) by mouth in the morning and 1 tablet (12.5 mg) in the evening. Take with meals. 180 tablet 2 01/03/2024 Active take 1 tablet by codi th twice daily at mealtime carvedilol (COREG) 12.5 MG tablet Take 1 tablet by mouth 2 times daily (with meals) 0 Active clotrimazole 10 mg oral lozenge (1 source) Azole Antifungal Start: 08-03-2021 take 10 mg by mouth every eight hours clotrimazole (Mycelex) 10 MG erinn Take 10 mg by mouth every 8 (eight) hours. 08/03/2021 Active colchicine 0.6 mg oral tablet (1 source) Start: 11-02-2023 End: 11-01-2024 take 1 tablet by mouth once daily colchicine 0.6 MG tablet Indications: Gout, unspecified cause, unspecified chronicity, unspecified site Take 1 tablet (0.6 mg) by mouth Daily 30 tablet 1 11/02/2023 11/01/2024 Active digoxin 0.125 mg oral tablet (3 sources) Cardiac Glycoside Start: 10-16-2023 Digoxin Acti ve 0.125 MG PO .COMPLEX October 16, 2023 12:00am 0.125 mg orally 1 every other day; Start: 08-14-2023 take 1 tablet by codi th once daily digoxin (Lanoxin) 125 MCG tablet Indications: Acute on chronic systolic congestive heart failure (CMS/HCC) take 1 tablet by mouth once daily 90 tablet 2 08/14/2023 Active take 1 tablet by codi th once daily digoxin (LANOXIN) 125 MCG tablet Take 1 tablet by mouth daily 0 Active dilTIAZem malate 240 mg oral tablet (1 source) Calcium Channel Soumya take 1 capsule by mouth once daily in the morning Dilacor XR 240 MG 1 capsule on an empty stomach in the morning Orally Once a day for 30 day(s) Active empagliflozin 10 mg oral tablet (2 sources) Sodium-Glucose Cotransporter 2 Inhibitor Start: 12-26-19 End: 12-26-19 take 1 tablet by mouth once daily Empagliflozin (Jardiance) 10 mg tablet Active 0 PO Daily April 25, 2024 12:00am unsure orally daily; escitalopram 10 mg oral tablet (4 sources) Serotonin Reuptake Inhibitor Start: 10-16-19 take 1 tablet by mouth once daily escitalopram (Lexapro) 10 MG tablet Indications: Depression with anxiety Take 1 tablet (10 mg) by mouth Daily 90 tablet 2 01/03/2024 Active take 1 tablet by mouth once kira y escitalopram (LEXAPRO) 10 MG tablet Take 1 tablet by mouth daily 0 Active take 0.5 tablet by m outh every twenty-four hours Lexapro 20 MG 0.5 tablet Orally Once a d ay for 30 day(s) Active furosemide 20 mg oral tablet (1 source) Loop Diuretic take 1 tablet by mouth every twenty-four hours Lasix 20 MG 1 tablet Orally Once a day for 30 day(s) Active gabapentin 100 mg oral capsule (3 sources) Anti-epileptic Agent Start: take 1 capsule by mouth in the morning, then take 1 capsule by mouth in the evening, then take 1 capsule by mouth at bedtime gabapentin (Neurontin) 100 MG capsule Indications: Restless legs syndrome Take 1 capsule (100 mg) by mouth in the morning and 1 capsule (100 mg) in the evening and 1 capsule (100 mg) before bedtime. 270 capsule 3 01/16/2024 Active take 1 capsule by [facility] three times daily gabapentin (NEURONTIN) 100 MG capsule Ta ke 1 capsule by mouth 3 times daily. 0 Active 3 ml insulin lispro 25 unt/ml / insulin lispro protamine, human 75 unt/ml pen injector (3 sources) Insulin Analog Start: 04-29-2024 End: 04-29-2024 inject 10 [IU] by subcutaneous injection twice daily at mealtime insulin lispro protamine-insulin lispro (HumaLOG Mix 75-25) (75-25) 100 UNIT/ML injection Indications: Diabetes mellitus with peripheral vascular disease (CMS/HCC) INJECT TEN UNITS SUBCUTANEOUSLY (UNDER THE SKIN) TWICE DAILY (IN THE MORNING and IN THE EVENING) WITH MEALS 90 mL 11 04/29/2024 04/29/2024 Discontinued (Reorder) Start: 04-29-2024 inject 10 [IU] by pelayo bcutaneous injection in the morning insulin lispro protamine-insulin lispro (HumaLOG Mix 75-25) (75-25) 100 UNIT/ML injection Indications: Diabetes mellitus with peripheral vascular disease (CMS/HCC) Inject 10 Units under the skin in the morning and 10 Units in the evening. Inject with meals. 6 mL 11 04/29/2024 Active insulin lispro p rotamine & lispro (HUMALOG MIX 75/25) (75-25) 100 UNIT per ML SUSP injection vial Inject 10 Units into the skin 2 times daily (with meals) Morning and evening with meals 0 Active Insulin Lispro Protamin-Lispro (1 source) Start: 10-16-2023 inject 8 [IU] by subcutaneous injection twice daily Insulin Lispro Protamin-Lispro Active 8 UNIT SUBCUT Twice daily October 16, 2023 12:00am ammonium lactate 120 mg/ml topical lotion (1 source) Start: 09-01-2021 ammonium lactate (Lac-Hydrin) 12 % lotion Apply 1 application topically if needed. 09/01/2021 Active levothyroxine sodium 0.05 mg oral tablet (2 sources) l-Thyroxine Start: 11-15-2022 take 1 tablet by mouth before mealtime levothyroxine (Synthroid, Levoxyl) 50 MCG tablet Take 1 tablet by mouth in the morning. Take before meals. 11/15/2022 Active lidocaine 0.04 mg/mg medicated patch (1 source) Antiarrhythmic, Amide Local Anesthetic Start: 04-25-2024 apply 1 dose topically twice daily Lidocaine (Aspercreme (Lidocaine)) 4 % adhesive patch,medicated Active 1 PATCH TOPICAL Twice daily April 25, 2024 12:00am lisinopril 20 mg oral tablet (2 sources) Angiotensin Converting Enzyme Inhibitor Start: 02-09-2023 take 1 tablet by mouth in the morning lisinopril 20 MG tablet Take 20 mg by mouth in the morning. 02/09/2023 Active omeprazole 40 mg delayed release oral capsule (3 sources) Proton Pump Inhibitor Start: 10-16-2023 take 1 capsule by mouth once daily omeprazole (PriLOSEC) [address] capsule Indications: Gastroesophageal reflux disease, unspecified whether esophagitis present TAKE 1 CAPSULE BY MOUTH DAILY 100 capsule 3 03/05/2024 Active take 1 capsule by mouth once tung ly omeprazole (PRILOSEC) 40 MG delayed release capsule Take 1 capsule by mouth daily 0 Active pantoprazole 40 mg delayed release oral tablet (1 source) Proton Pump Inhibitor take 1 tablet by mouth every twenty-four hours Protonix 40 MG 1 tablet Orally Once a day for 30 day(s) Active rOPINIRole 0.25 mg oral tablet (3 sources) Nonergot Dopamine Agonist Start: take 1 tablet by mouth once daily at bedtime rOPINIRole (Requip) 0.25 MG tablet Indications: Restless legs syndrome take 1 tablet by mouth once daily 1 to 3 hours BEFORE BEDTIME 100 tablet 3 01/17/2024 Active take 1 tablet by mouth once kira y rOPINIRole (REQUIP) 0.25 MG tablet Take 1 tablet by mouth nightly 0 Active spironolactone 25 mg oral tablet (2 sources) Aldosterone Antagonist Start: 01-03-2024 End: 01-02-2025 take 25 mg by mouth once daily Spironolactone Active 25 MG PO Daily April 25, 2024 12:00am tiZANidine 4 mg oral tablet (2 sources) Central alpha-2 Adrenergic Agonist Start: 04-11-2023 take 1 tablet by mouth every eight hours for muscle spasms tiZANidine (Zanaflex) 4 MG tablet Indications: Lumbar paraspinal muscle spasm Take 1 tablet (4 mg) by mouth every 8 (eight) hours if needed for muscle spasms. 30 tablet 3 04/11/2023 Active take 1 tablet by codi th every four hours as needed for pain tiZANidine (ZANAFLEX) 4 MG tablet Indications: Pain Take 1 tablet by mouth every 4 hours as needed Indications: Pain 0 Active torsemide 20 mg oral tablet (3 sources) Loop Diuretic Start: 10-16-2023 take 1 tablet by mouth once daily torsemide (Demadex) 20 MG tablet Indications: Acute combined systolic and diastolic heart failure (CMS/HCC) take 1 tablet by mouth once daily 100 tablet 3 01/17/2024 Active take 1 tablet by mouth once kira y torsemide (DEMADEX) 20 MG tablet Take 1 tablet by mouth daily 0 Active Tramadol & Dietary Manage Pr od 50 MG (1 source) Tramadol & Dieta [...] a day for 21 days Mar, Not-Taking predniSONE 20 mg oral tablet (2 sources) Start: 10-16-2023 End: 04-25-2024 take 30 mg by mouth once daily Prednisone Discontinued 30 MG PO Daily 15 October 16, 2023 12:00am April 25, 2024 2:44am Start: 10-16-2023 End: 10-16-2023 take 20 mg by mouth twice daily Prednisone Discontinued 20 MG PO Twice daily 10 5 October 16, 2023 12:00am October 16, 2023 11:36am Problems Active Problems Problem Classification Problem Date Documented Date Episodic/Chronic Acute and unspecified renal failure (1 source) Acute kidney failure, unspecified; Translations: [ACUTE KIDNEY FAILURE UNSPECIFIED] Onset: 3 Episodic Allergic reactions (3 sources) Allergy status to penicillin; Translations: [Allergy status to other drugs, medicaments and biological substances status] Onset: 3 Episodic Anxiety disorders (2 sources) Mixed anxiety and depressive disorder; Translations: [Other specified anxiety disorders] Onset: 3 11-21-2022 Chronic Asthma (2 sources) Unspecified asthma, uncomplicated; Translations: [Asthma] Onset: 3 11-21-2022 Chronic Bacterial infection; unspecified site (1 source) Unspecified Escherichia coli [E. coli] as the cause of diseases classified elsewhere; Translations: [UNS E COLI CAUSE DX CLASS ELSEWHERE] Onset: 3 Episodic Cardiac dysrhythmias (6 sources) Unspecified atrial fibrillation; Translations: [Atrial fibrillation with rapid ventricular response] Onset: 3 11-21-2022 Chronic Cardiac dysrhythmias (1 source) Bradycardia, unspecified; Translations: [BRADYCARDIA UNSPECIFIED] Onset: 3 Episodic Cataract (10 sources) Presence of intraocular lens; Translations: [Age-related nuclear cataract, right eye] Onset: 2 Chronic Chronic kidney disease (2 sources) Chronic kidney disease stage 3B ; Translations: [Stage 3b chronic kidney disease (HCC)] Onset: 3 Resolved: 4 11-21-2022 Chronic Chronic kidney disease (3 sources) Chronic kidney disease; Translations: [CHRONIC KIDNEY DISEASE STAGE 3B] Onset: 2 Chronic obstructive pulmonary disease and bronchiectasis (1 source) Chronic obstructive lung disease; Translations: [Chronic obstructive pulmonary disease, unspecified] Onset: 3 11-21-2022 Chronic Congestive heart failure; nonhypertensive (20 sources) Acute combined systolic (congestive) and diastolic (congestive) heart failure; Translations: [Acute on chronic combined systolic (congestive) and diastolic (congestive) heart failure] Onset: 2 Chronic Deficiency and other anemia (1 source) Iron deficiency anemia, unspecified; Translations: [IRON DEFICIENCY ANEMIA UNSPECIFIED] Onset: 3 Episodic Diabetes mellitus with complications (8 sources) Type 2 diabetes mellitus with diabetic chronic kidney disease; Translations: [Type 2 diabetes mellitus with hyperglycemia] Onset: 0 Resolved: 4 04-29-2024 Chronic Diabetes mellitus without complication (4 sources) Type 2 diabetes mellitus without complications; Translations: [Type 2 diabetes mellitus] Onset: 2 04-25-2024 Chronic Disorders of lipid metabolism (2 sources) Pure hypercholesterolemia, unspecified; Translations: [Hyperlipidemia] Onset: 3 11-21-2022 Chronic Diverticulosis and diverticulitis (1 source) Diverticulosis of colon; Translations: [Diverticulosis of large intestine without perforation or abscess without bleeding] Onset: 3 11-21-2022 Chronic Esophageal disorders (5 sources) Gastro-esophageal reflux disease without esophagitis; Translations: [Gastroesophageal reflux disease] Onset: 3 04-25-2024 Chronic Essential hypertension (5 sources) Essential (primary) hypertension; Translations: [Hypertensive disorder] Onset: 2 04-25-2024 Chronic Fluid and electrolyte disorders (2 sources) Hyperkalemia; Translations: [Dehydration] Onset: 2 Episodic Genitourinary symptoms and ill-defined conditions (1 source) Urinary incontinence; Translations: [Unspecified urinary incontinence] Onset: 3 11-21-2022 Chronic Gout and other crystal arthropathies (1 source) Gout, unspecified; Translations: [GOUT UNSPECIFIED] Onset: 2 Chronic Heart valve disorders (18 sources) Presence of prosthetic heart valve; Translations: [...] Onset: 2 Chronic Menopausal disorders (1 source) Primary ovarian failure; Translations: [Other primary ovarian failure] Onset: 3 11-21-2022 Chronic Menopausal disorders (1 source) Hormone replacement therapy; Translations: [HORMONE REPLACEMENT THERAPY] Onset: 3 Episodic Mood disorders (1 source) Mood disorders; Translations: [DEPRESSION UNSPECIFIED] Onset: 3 Nonspecific chest pain (3 sources) Chest pain; Translations: [Chest pain, unspecified] Onset: 4 04-25-2024 Episodic Osteoarthritis (6 sources) Arthritis of right ankle; Translations: [Primary osteoarthritis, right ankle and foot] Onset: 3 11-21-2022 Chronic Other acquired deformities (1 source) Contracture of joint of right ankle; Translations: [Contracture, right ankle] Onset: 3 11-21-2022 Chronic Other aftercare (1 source) penitentiary (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 of insulin; Translations: [ARMATURE COIL WINDER CURRENT USE OF INSULIN] Onset: 3 Episodic Other aftercare (1 source) medical terminologist (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 of aspirin; Translations: [[facility] CURRENT USE OF ASPIRIN] Onset: 3 Episodic Other aftercare (1 source) Other jail (current) drug therapy; Translations: [OTH ARMATURE COIL WINDER CURRENT DRUG THERAPY] Onset: 3 Episodic Other and ill-defined heart disease (1 source) Diastolic dysfunction; Translations: [Other ill-defined heart diseases] Onset: 3 11-21-2022 Chronic Other eye disorders (1 source) Cataract extraction [...] for closed fracture] Onset: 3 Episodic Other fractures (1 source) Fracture of left rib; Translations: [Fracture of one rib, left side, initial encounter for closed fracture] 04-25-2024 Episodic Other fractures (2 sources) Fracture of one rib, left side, initial encounter for closed fracture; Translations: [Closed fracture of rib(s), unspecified] Onset: 4 04-25-2024 Episodic Other hereditary and degenerative nervous system conditions (1 source) Restless legs; Translations: [Restless legs syndrome] Onset: 3 11-21-2022 Chronic Other lower respiratory disease (1 source) Personal history of pneumonia (recurrent); Translations: [PERSONAL HX OF PNEUMONIA RECURRENT] Onset: 3 Episodic Other lower respiratory disease (4 sources) Dyspnea, unspecified; Translations: [DYSPNEA UNSPECIFIED] Onset: 3 Episodic Other lower respiratory disease (1 source) Personal history of other diseases of the respiratory system; Translations: [PERS HX OTH DZ RESPIRATORY SYSTEM] Onset: 3 Episodic Other nervous system disorders (1 source) Difficulty walking; Translations: [Difficulty in walking, not elsewhere classified] Onset: 3 11-21-2022 Chronic Other nutritional; endocrine; and metabolic disorders (1 source) Body mass index 30+ - obesity; Translations: [Obesity, unspecified] Onset: 3 11-21-2022 Chronic Other screening for suspected conditions (not mental disorders or infectious disease) (4 sources) Electrocardiogram abnormal; Translations: [Abnormal electrocardiogram [ECG] [EKG]] Onset: 8 04-25-2024 Episodic Other upper respiratory disease (1 source) Allergic rhinitis due to pollen; Translations: [Allergic rhinitis due to pollen] Onset: 3 11-21-2022 Chronic Other upper respiratory infections (1 source) Chronic frontal sinusitis; Translations: [Sinusitis chronic, frontal] Chronic Pathological fracture (3 sources) Pathological fracture of vertebra due to osteoporosis; Translations: [Age-related osteoporosis with current pathological fracture, vertebra(e), initial encounter for fracture] Onset: 3 05-09-2023 Episodic Peripheral and visceral atherosclerosis (1 source) Peripheral vascular disease; Translations: [Peripheral vascular disease, unspecified] Onset: 3 11-21-2022 Chronic Poisoning by other medications and drugs (1 source) Poisoning by cardiac-stimulant glycosides and drugs of similar action, accidental (unintentional), initial encounter; Translations: [PSN CARD GLYCOS RX SIM ACT ACC INIT] Onset: 3 Episodic Pulmonary heart disease (3 sources) Pulmonary hypertension, unspecified; Translations: [Pulmonary hypertension] Onset: 3 Chronic Residual codes; unclassified (1 source) Obstructive sleep apnea syndrome; Translations: [Obstructive sleep apnea (adult) (pediatric)] Onset: 3 11-21-2022 Chronic Residual codes; unclassified (1 source) Acquired [...] radiculopathy, lumbar region] Onset: 4 08-07-2023 Chronic Thyroid disorders (11 sources) Hypothyroidism, unspecified; Translations: [Thyrotoxicosis, unspecified without [...] Classification Problem Date Documented Da te Episodic/Chronic Deficiency and other anemia (1 source) Anemia; Translations: [Anemia, unspecified] Onset: 12-09-2012 04-10-2023 Episodic Immunizations and screening for infectious disease (1 source) Contact with and (suspected) exposure to other viral communicable diseases Onset: 06-06-2021 Resolved: 06-06-2021 Episodic Intestinal obstruction without hernia (1 source) Stenosis of colon; Translations: [Other intestinal obstruction unspecified as to partial versus complete obstruction] Onset: 11-21-2022 11-21-2022 Episodic Nausea and vomiting (1 source) Nausea with vomiting, unspecified; Translations: [NAUSEA WITH VOMITING UNSPECIFIED] Onset: 05-08-2022 Episodic Open wounds of extremities (1 source) Open wound of finger without complication; Translations: [Thumb laceration] Episodic Other aftercare (1 source) Long-term current use of anticoagulant; Translations: [penitentiary (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 of anticoagulants] Onset: 12-20-2017 04-10-2023 Episodic Other bone disease and musculoskeletal deformities (1 source) Osteopenia; Translations: [Other specified disorders of bone density and structure, multiple sites] Onset: 11-21-2022 11-21-2022 Episodic Other connective tissue disease (4 sources) Pain in left foot; Translations: [PAIN IN LEFT FOOT] Onset: 02-12-2022 Episodic Other connective tissue disease (1 source) Muscle weakness; Translations: [Muscle weakness (generalized)] Onset: 11-21-2022 11-21-2022 Episodic Other eye disorders (1 source) Dry eyes; Translations: [Dry eye syndrome of bilateral lacrimal glands] Onset: 07-30-2023 07-30-2023 Episodic Other fractures (1 source) Fracture of twelfth thoracic vertebra; Translations: [Wedge compression fracture of T11-T12 vertebra, initial encounter for closed fracture] Onset: 03-15-2023 03-15-2023 Episodic Other gastrointestinal disorders (1 source) Diarrhea, unspecified; Translations: [DIARRHEA UNSPECIFIED] Onset: 05-08-2022 Episodic Other gastrointestinal disorders (1 source) Drug-induced constipation; Translations: [Drug induced constipation] Onset: 11-21-2022 11-21-2022 Episodic Other lower respiratory disease (1 source) Cough; Translations: [Cough] Episodic Other lower respiratory disease (2 sources) Dyspnea; Translations: [Shortness of breath] Onset: 05-23-2016 04-10-2023 Episodic Other nervous system disorders (1 source) Unsteady when standing; Translations: [Unsteadiness on feet] Onset: 11-21-2022 11-21-2022 Episodic Other nervous system disorders (1 source) Abnormal gait; Translations: [Unspecified abnormalities of gait and mobility] Onset: 08-15-2021 04-10-2023 Episodic Other nutritional; endocrine; and metabolic disorders (1 source) Abnormal weight loss; Translations: [ABNORMAL WEIGHT LOSS] Onset: 04-14-2022 Episodic Other nutritional; endocrine; and metabolic disorders (1 source) History of iron deficiency; Translations: [Personal history of other endocrine, nutritional and metabolic disease] Onset: 04-04-2017 04-10-2023 Episodic Other upper respiratory infections (1 source) Acute upper respiratory infection, unspecified Onset: 06-06-2021 Resolved: 06-06-2021 Episodic Pneumonia (except that caused by tuberculosis or sexually transmitted disease) (3 sources) Pneumonia, unspecified organism; Translations: [PNEUMONIA UNSPECIFIED ORGANISM] Onset: 04-30-2022 Episodic Spondylosis; intervertebral disc disorders; other back problems (3 sources) Lumbar radiculitis; Translations: [Radiculopathy, lumbar region] Onset: 11-21-2022 05-29-2023 Episodic Viral infection (1 source) COVID-19; Translations: [Pneumonia due to other virus not elsewhere classified] Onset: 06-07-2022 04-10-2023 Episodic Results Test Name Value Interpretation Reference Range Facility STR cardiac stress/lexiscano n 04-27-2024 STR cardiac stress/lexiscan [facility] [place] [address] Cardiac Stress Test Signed Patient: Jenni Quinones MR#: [id number] 0 : 1940 Acct:[id number] Age/Sex: 84 / F ADM Date: 04/25/24 Loc: Room: [address] [place] [address] Type: DIS IN Attending Dr: Javan Gruber MD Copies to: Palmira Lowery MD, [facility] Ingrid Haynes DO Ordering Provider: Ingrid Haynes DO Date of Service: 04/25/24 STR/STR cardiac stress/lexiscan: chest pain ORDERED BY: Dr. Haynes INDICATIONS: An 84-year-old patient with chest pain. Resting ECG revealed atrial fibrillation with diffuse repolarization abnormalities. Resting blood pressure 157/69 mmHg. Following intravenous administration of 400 mcg of Lexiscan over 10 seconds, the baseline ST segment abnormalities remained unchanged, and the patient remained in atrial fibrillation throughout. No chest pain was reported. Cardiolite study followed. CONCLUSION: 1. Nondiagnostic electrocardiogram following Lexiscan administration due to the presence of baseline ST segment abnormalities. 2. No chest pain induced by Lexiscan administration. 3. Atrial fibrillation was noted throughout. 4. Cardiolite studies to be reported separately by Nuclear Cardiology Transcribed By: NTS 04/28/24 1507 Dictated By: Palmira Lowery MD, [facility] 04/27/24 1606 Signed By: 05/01/24 1218 Normal [facility] A1C with Estimated Average G [facility] 04-25-2024 Glucose [Mass/Vol] 171 mg/dL Normal [facility] Comment on above: Result Comment: PERF ORMED BY: [place] [address] PATHOLOGIST ICING MIXER ALVARO LEWIS M.D. Performed By: #### M G, LIPID, A1C WTH eA, BMP, HEPATIC #### [address] Activated partial thrombopla stin time (aPTT) in platelet poor plasma by coagulation aOrdered By: Lalo Carter on 04-25-2024 aPTT Coag (PPP) [Time] 30.0 s 25.1-36.5 [facility] Comment on above: A hematocrit value g reater than 55% may lead to inaccurate results in coagulation testing. Patients having hematocrit values >55% require a special collection tube for coagulation studies. Please contact the laboratory at [phone] for redraw instructions. Alanine aminotransferase [En zymatic activity/volume] in Serum or PlasmaOrdered By: Lalo Carter on 04-25-2024 ALT [Catalytic activity/Vol] 7 U/L Normal 7-52 [facility] Comment on above: Order Comment: FASTI NG Y Performed By: #### M G, LIPID, A1C WTH eA, BMP, HEPATIC #### [facility] [address] [place] [address] [place] Albumin [Mass/volume] in Ser um or Plasma by Bromocresol green (BCG) dye binding methoOrdered By: Lalo Carter on 04-25-2024 Albumin BCG dye [Mass/Vol] 3.1 g/dL Low 3.5-5.7 [facility] Alkaline phosphatase [Enzyma tic activity/volume] in Serum or PlasmaOrdered By: Lalo Carter on 04-25-2024 ALP [Catalytic activity/Vol] 78 U/L Normal 34-104 [facility] Comment on above: Order Comment: FASTI NG Y Performed By: #### M G, LIPID, A1C WTH eA, BMP, HEPATIC #### [facility] [address] [place] [address] [place] Aspartate aminotransferase [ Enzymatic activity/volume] in Serum or PlasmaOrdered By: Lalo Carter on 04-25-2024 AST [Catalytic activity/Vol] 13 U/L Normal 13-39 [facility] Comment on above: Order Comment: FASTI NG Y Performed By: #### M G, LIPID, A1C WTH eA, BMP, HEPATIC #### [facility] [address] [place] [address] [place] Automated basophil %Ordered By: Lalo Carter on 04-25-2024 Basophils/100 WBC (Bld) 0.8 % Normal . [facility] Comment on above: Performed By: #### M G, LIPID, A1C WTH eA, BMP, HEPATIC #### [facility] [address] Automated basophil countOrde red By: Lalo Carter on 04-25-2024 Basophils (Bld) [#/Vol] 0.1 10*3/uL Normal 0.0-0.2 [facility] Comment on above: Result Comment: PERF ORMED BY: [place] [address] PATHOLOGIST ICING MIXER ALVAOR LEWIS M.D. Performed By: #### M G, LIPID, A1C WTH eA, BMP, HEPATIC #### [facility] [address] [place] [address] Automated blood monocyte cou ntOrdered By: Lalo Carter on 04-25-2024 Monocytes (Bld) [#/Vol] 0.8 10*3/uL Normal 0.0-0.8 [facility] Comment on above: Performed By: #### M G, LIPID, A1C WTH eA, BMP, HEPATIC #### [facility] [address] [place] [address] Automated eosinophil %Ordere d By: Lalo Carter on 04-25-2024 Eosinophils/100 WBC (Bld) 2.9 % Normal . [facility] Comment on above: Performed By: #### M G, LIPID, A1C WTH eA, BMP, HEPATIC #### [facility] [address] Automated eosinophil countOr dered By: Lalo Carter on 04-25-2024 Eosinophils (Bld) [#/Vol] 0.3 10*3/uL Normal 0.0-0.45 [facility] Comment on above: Performed By: #### M G, LIPID, A1C WTH eA, BMP, HEPATIC #### [facility] [address] [place] [address] Automated monocyte %Ordered By: Lalo Carter on 04-25-2024 Monocytes/100 WBC (Bld) 8.7 % Normal . [facility] Comment on above: Performed By: #### M G, LIPID, A1C WTH eA, BMP, HEPATIC #### [facility] [address] Automated neutrophil %Ordere d By: Lalo Carter on 04-25-2024 Neutrophils/100 WBC (Bld) 79.6 % Normal . [facility] Comment on above: Performed By: #### M G, LIPID, A1C WTH eA, BMP, HEPATIC #### [facility] [address] Basic Metabolic Panelon 04-08 Creatinine Clr Calc Pharmacy 32.54 Normal [facility] Comment on above: Order Comment: FASTI NG Y Performed By: #### M G, LIPID, A1C WTH eA, BMP, HEPATIC #### [facility] [address] GFR/1.73 sq M.predicted MDRD (S/P/Bld) [Vol rate/Area] 44.359 mL/min/{1.73_m2} Normal [facility] Comment on above: Order Comment: FASTI NG Y Performed By: #### M G, LIPID, A1C WTH eA, BMP, HEPATIC #### [facility] [address] Bilirubin.direct [Mass/volum e] in Serum or PlasmaOrdered By: Lalo Carter on 04-25-2024 Bilirubin.direct [Mass/Vol] 0.10 mg/dL 0.03-0.18 [facility] Bilirubin.total [Mass/volume ] in Serum or PlasmaOrdered By: Lalo Carter on 04-25-2024 Bilirubin [Mass/Vol] 0.5 mg/dL Normal 0.3-1.0 [facility] Comment on above: Order Comment: FASTI NG Y Performed By: #### M G, LIPID, A1C WTH eA, BMP, HEPATIC #### [facility] [address] angio chest PE protocolon 04-25-2024 CT angio chest PE protocol [facility] [place] [address] [place] [address] CT Scan Report Signed Patient: Jenni Quinones MR#: [id number] 0 : 1940 Acct:[id number] Age/Sex: 84 / F ADM Date: 04/25/24 Loc: Room: 7N7010-8 Type: ADM IN Attending Dr: Lalo Carter DO Copies to: Lalo Carter DO Ordering Provider: Lalo Carter DO Date of Service: 04/25/24 CT/CT angio chest PE protocol: sudden desatruation CT PULMONARY ANGIOGRAM WITH CONTRAST CLINICAL HISTORY: EKG changes and sudden oxygen desaturation. Recent fall with left rib fractures. COMPARISON: None TECHNIQUE: Spiral images were obtained through the chest following intravenous administration of 90 mL of Isovue-370. Images were reviewed using both narrow and wide window settings. Sagittal, coronal and 3 D volume-rendered reconstructions were performed and reviewed. This CT exam was performed using one or more following dose reduction techniques: Automated exposure control, adjustment of the mA and/or kV according to patient size, or use of iterative reconstruction technique. FINDINGS: Median sternotomy wires are visualized. The heart is slightly prominent. There is reflux of contrast into the IVC and hepatic veins and could indicate right heart failure.. There is no pericardial effusion. No aortic aneurysm or dissection is seen. There is atherosclerotic plaque involving the aorta. The main pulmonary artery is mildly prominent. There is adequate opacification of the pulmonary arteries. No emboli are identified. There are scattered mildly prominent mediastinal and hilar lymph nodes, larger on the left. Endplate spurring is present at the spine. There is a compression fracture in the upper lumbar region with associated kyphoplasty. There are old posterior right rib fractures. There are also multiple posterior lateral displaced left rib fractures with more than one fracture involving the seventh and eighth ribs. Pleural effusions are present at the base on the right and toward the upper lung posteriorly on the left. There is obstructive lung disease with airspace lucencies. There is interstitial thickening. Scarring or atelectasis is identified. There is a masslike opacity at the left lower lobe posteriorly which measures approximately 5 cm in greatest dimension. No pneumothorax is identified. Limited cuts through the upper abdomen show slight adrenal limb thickening. There is additional atherosclerotic disease.. CT/CT angio chest PE protocol IMPRESSION: NO CT EVIDENCE OF PULMONARY EMBOLISM. PULMONARY ARTERY ENLARGEMENT WHICH COULD RELATE TO PULMONARY HYPERTENSION. MILD CARDIOMEGALY AND SUSPECTED RIGHT HEART FAILURE. MULTIPLE ACUTE LEFT RIB FRACTURES. OBSTRUCTIVE LUNG DISEASE. INTERSTITIAL CHANGES THAT MAY BE EDEMA. SCARRING OR ATELECTASIS WELL MASSLIKE OPACITY AT THE LEFT LOWER LOBE. THIS IS IN THE VICINITY OF THE RIB FRACTURES. CORRELATION AND FOLLOW-UP IS RECOMMENDED TO EXCLUDE ANY POSSIBILITY OF UNDERLYING MASS. NONSPECIFIC MEDIASTINAL AND HILAR LYMPHADENOPATHY. Impression dictated by: Rosina Levin M.D.04/25/2024 8:30 AM Dictation Location: [place] [address] Transcribed By: [facility] 04/25/24829 Dictated By: Rosina Levin MD 04/25/24805 Signed By: 04/25/24829 Normal [facility] Calcium [Mass/volume] in Ser um or PlasmaOrdered By: Lalo Carter on 04-25-2024 Calcium [Mass/Vol] 8.4 mg/dL Low 8.6-10.3 [facility] Comment on above: Order Comment: BETSEY GE Y Performed By: #### M G, LIPID, A1C WTH eA, BMP, HEPATIC #### [facility] [address] Capillary blood glucose mer urement by glucometer (mass/volume)Ordered By: Javan Gruber on 04-25-2024 Glucose [Mass/Vol] 108 mg/dL Normal [facility] Comment on above: Random Glucose Refer ence Range is dependent on time and content of last meal. Glucose of more than 200 mg/dL in a nonstressed, ambulatory subject supports the diagnosis of Diabetes Mellitus. Result Comment: [place] om Glucose Reference Range is dependent on time and content of last meal. Glucose of more than 200 mg/dL in a nonstressed, ambulatory subject supports the diagnosis of Diabetes Mellitus. Performed By: #### M G, LIPID, A1C WTH eA, BMP, HEPATIC #### [facility] [address] [place] [address] [place] Carbon dioxide, total [Moles /volume] in Serum or PlasmaOrdered By: Lalo Carter on 04-25-2024 CO2 [Moles/Vol] 30.3 mmol/L Normal 21.0-31.0 [facility] Comment on above: Order Comment: FASTI NG Y Performed By: #### M G, LIPID, A1C WTH eA, BMP, HEPATIC #### [facility] [address] [place] [address] [place] Chloride [Moles/volume] in S theresa or PlasmaOrdered By: Lalo Carter on 04-25-2024 Chloride [Moles/Vol] 102 mmol/L Normal 98-107 [facility] Comment on above: Order Comment: FASTI NG Y Performed By: #### M G, LIPID, A1C WTH eA, BMP, HEPATIC #### [facility] [address] [place] [address] [place] Cholesterol [Mass/volume] in Serum or PlasmaOrdered By: Lalo Carter on 04-25-2024 Cholesterol [Mass/Vol] 88 mg/dL Low 140-200 [facility] Comment on above: Chol less than 200 m g/dl low riskChol 201-239 mg/dl borderline riskChol 240 mg/dl and greater high risk Order Comment: FASTI NG Y Result Comment: Chol less than 200 mg/dl low risk Chol 201-239 mg/dl borderline risk Chol 240 mg/dl and greater high risk Performed By: #### M G, LIPID, A1C WTH eA, BMP, HEPATIC #### [facility] [address] [place] [address] [place] Cholesterol in LDL Calc [Mas s/Vol]Ordered By: Lalo Carter on 04-25-2024 Cholesterol in LDL [Mass/Vol] 36 mg/dL 0-100 [facility] Comment on above: LDL ATP III CLASSIFI CATIONLDL less than 100 mg/dL OptimalLDL 100-129 mg/dL Near or above optimalLDL 130-159 mg/dL Borderline highLDL 160-189 mg/dL HighLDL greater than 189 mg/dL Very high Cholesterol in VLDL Calc [Ma ss/Vol]Ordered By: Lalo Carter on 04-25-2024 Cholesterol in VLDL [Mass/Vol] 18 mg/dL [facility] Complete Blood Count Auto Di ffon 04-25-2024 Mean Corpuscular HGB Conc 32.8 g/dL Normal 32.0-35.0 [facility] Comment on above: Performed By: #### M G, LIPID, A1C WTH eA, BMP, HEPATIC #### [facility] [address] NRBC% 0.1 /100{WBC} Normal 0-0.5 [facility] Comment on above: Performed By: #### M G, LIPID, A1C WTH eA, BMP, HEPATIC #### [facility] [address] Creatinine [Mass/volume] in Serum or PlasmaOrdered By: Lalo Carter on 04-25-2024 Creatinine [Mass/Vol] 1.20 mg/dL Normal 0.60-1.20 [facility] Comment on above: Order Comment: FASTI NG Y Performed By: #### M G, LIPID, A1C WTH eA, BMP, HEPATIC #### [facility] [address] ECG 12 lead ECGon 04-25-2024 ECG [address] [facility] [place] [address] [place] [address] Electrocardiograph Report Signed Patient: Jenni Quinones MR#: [id number] 0 : 1940 Acct:[id number] Age/Sex: 84 / F ADM Date: 04/25/24 Loc: Room: [address] [place] [address] Type: DIS IN Attending Dr: Javan Gruber MD Ordering Provider: Lalo Carter DO Date of Service: 04/25/24 ECG/ECG 12 lead ECG: chest pain Copies to: Test Reason : Blood Pressure : 122/56 mmHG Vent. Rate : 75 BPM Atrial Rate : 93 BPM P-R Int : * ms QRS Dur : 88 ms QT Int : 308 ms P-R-T Axes : * 78 243 degrees QTcB Int : 343 ms Atrial fibrillation Abnormal ECG No previous ECGs available Confirmed by SEBASTIÁN MOULTON FACPALMIRA So ([id number]) on 04/25/2024 5:26:27 PM Referred By: Electronically Signed By: PALMIRA LOWERY MD [facility] Transcribed By: MUS Signed By Palmira Lowery MD, [facility] 04/25/24 1726 Normal [facility] echo transthoracicon [facility] echo transthoracic [facility] [place] [address] [place], [place] [id number] Echocardiogram Signed Patient: Jenni Quinones MR#: [id number] 0 : 1940 Acct:[id number] Age/Sex: 84 / F ADM Date: 04/25/24 Loc: Room: 4E5983-2 Type: DIS IN Attending Dr: Javan Gruber MD Ordering Provider: Lalo Carter DO Date of Service: 04/25/24 [facility] echo transthoracic: history of aortic insufficiency. Copies to: Palmira Lowery MD, [facility] Lalo Carter DO Weight: 166 lb Performed By: Cindy Benton BSA: 1.8 m2 BP: 122/56 mmHg HR: 85 Reason For Study: history of aortic insufficiency. History: HTN, DM, CHF, AVR, FS Interpretation Summary Mild concentric left ventricular hypertrophy. Left ventricular systolic function is normal. Ejection Fraction = 55-60%. The left atrium appears moderately dilated. The right atrium is mildly dilated. Bioprosthetic aortic valve. Severe valvular aortic stenosis. The aortic valve peak velocity is 413 cm/s. The aortic valve maximum pressure gradient is 68 mmHg. The aortic valve mean gradient is 44 mmHg. Trace aortic regurgitation. There is mild mitral stenosis. Mean gradient across the mitral valve measured 8 mmHg There is trace mitral regurgitation. There is moderate tricuspid regurgitation. The right ventricular systolic pressure is 72 mmHg. Right ventricular systolic pressure is consistent with severe pulmonary hypertension. The patient was in atrial fibrillation through out the study. Procedure/Quality: A two-dimensional transthoracic echocardiogram with color flow and Doppler was performed. The study was technically good in quality. Left Ventricle: Mild concentric left ventricular hypertrophy. Left ventricular systolic function is normal. Ejection Fraction = 55-60%. Indeterminate diastolic function. Left Atrium: The left atrium appears moderately dilated. The atrial septum appears normal. Right Atrium: The right atrium is mildly dilated. Right Ventricle: The right ventricular size, thickness and function are normal. Aortic Valve: Bioprosthetic aortic valve. Severe valvular aortic stenosis. The aortic valve peak velocity is 413 cm/s. The aortic valve maximum pressure gradient is 68 mmHg. The aortic valve mean gradient is 44 mmHg. Trace aortic regurgitation. Mitral Valve: The mitral valve is moderately sclerotic. There is mild mitral stenosis. Mean gradient across the mitral valve measured 8 mmHg. There is trace mitral regurgitation. Tricuspid Valve: The tricuspid valve is normal. There is moderate tricuspid regurgitation. The right ventricular systolic pressure is 72 mmHg. Right ventricular systolic pressure is consistent with severe pulmonary hypertension. Pulmonic Valve: The pulmonic valve is not well seen, but is grossly normal. Arteries: The aortic root is normal size. Pericardium/Pleura: No pericardial effusion seen. There is no pleural effusion. IVC/Hepatic Veins: The IVC is normal in size with an inspiratory collapse of greater then 50%, suggesting normal right atrial pressure. Miscellaneous: No thrombus, vegetation or mass is seen. The patient was in atrial fibrillation through out the study. Measurements with Normals IVSd: 1.3 cm (0.7-1.1 cm)LVIDd: 4.3 cm (3.7-5.4 cm) LVPWd: 1.9 cm (0.7-1.1 cm)LVIDs: 3.4 cm (2.3-3.6 cm) LA dimension: 5.1 cm (2.3-4.0 cm)Ao root diam: 3.4 cm(2.0-3.6 cm) asc Aorta Diam: 3.0 cm(2.1-3.4cm) Doppler with Normals RVSP(TR): 72.5 mmHg (18-35mmHg) LV V1 max: 145.1 cm/sec(0.7-1.7m/s)MV E max bradley: 198.0 cm/sec(0.8-1.3m/s) MMode/2D Measurements Calculations RVDd: 3.2 cm FS: 20.4 % Ao root area: LVOT diam: 1.3 cm RV S Bardley: EDV(Teich): 81.9 ml 9.3 cm2 LVOT area: 1.3 cm2 6.8 cm/sec ESV(Teich): 47.5 ml EF(Teich): 42.0 % __ LVLd ap4: 6.6 cm SV(MOD-sp4): 21.1 ml LAV(MOD-sp4): LA A2 area: 30.9 cm2 EDV(MOD-sp4): 86.8 ml 46.6 ml LAV(MOD-sp2): LA A4 area: 27.5 cm2 LVLs ap4: 5.7 cm 122.0 ml LA length (vol): ESV(MOD-sp4): 7.1 cm 25.5 ml LA vol: 102.0 ml EF(MOD-sp4): LA vol index: 45.3 % 57.9 ml/m2 __ RA Volume: RA Volume Index: 53.3 ml 30.3 ml/m2 Doppler Measurements Calculations MV dec time: MV V2 max: MV dec slope: Ao V2 max: 0.26 sec 218.3 cm/sec 413.4 cm/sec MV max P.0 cm/sec2 Ao max P.0 mmHg 68.4 mmHg MV V2 mean: Ao mean P.3 cm/sec 43.8 mmHg MV mean PG: Ao V2 mean: 7.1 mmHg 320.8 cm/sec MV V2 VTI: 54.9 cm Ao V2 VTI: 110.1 cm MVA(VTI): 0.69 cm2 FELICITA(I,D): 0.34 cm2 FELICITA(V,D): 0.45 cm2 __ LV V1 max PG: MR max bradley: TV max P.0 mmHg TR max bradley: 8.4 mmHg 428.3 cm/sec 416.7 cm/sec LV V1 mean PG: MR max PG: TR max P.8 mmHg 74.6 mmHg 69.5 mmHg LV V1 mean: RAP systole: 89.2 cm/sec 3.0 mmHg LV V1 VTI: 29.4 cm ___ Electronically signed by: PALMIRA (more content not included)... Normal [facility] Erythrocyte distribution wid th [Ratio] by Automated countOrdered By: Lalo Carter on 04-25-2024 Erythrocyte distribution width (RBC) [Ratio] 18.3 % High 11.9-15.3 [facility] [facility] Comment on above: Performed By: #### M G, LIPID, A1C WTH eA, BMP, HEPATIC #### [facility] [address] Erythrocytes [#/volume] in B lood by Automated countOrdered By: Lalo Carter on 04-25-2024 RBC (Bld) [#/Vol] 3.18 10*6/uL Low 3.60-5.00 [facility] Comment on above: Performed By: #### M Marlena, LIPID, A1C WTH eA, BMP, HEPATIC #### [facility] [address] Glucose Poct Glucometerson 1 Commemt1 Glu2: Cleaned Meter Normal [facility] Comment on above: Result Comment: PERF ORMED BY: [place] [address] PATHOLOGIST ICING MIXER ALVARO LEWIS M.D. Performed By: #### M Marlena, LIPID, A1C WTH eA, BMP, HEPATIC #### [address] Glucose [Mass/volume] in Ser um or PlasmaOrdered By: Lalo Carter on 04-25-2024 Glucose [Mass/Vol] 121 mg/dL High 70-100 [facility] Comment on above: ADA recommended refe rence rangeRandom Glucose Reference Range is dependent on time and content of last meal. Glucose of more than 200 mg/dL in a nonstressed, ambulatory subject supports the diagnosis of Diabetes Mellitus. Order Comment: FASTI NG Y Result Comment: [place] om Glucose Reference Range is dependent on time and content of last meal. Glucose of more than 200 mg/dL in a nonstressed, ambulatory subject supports the diagnosis of Diabetes Mellitus. ADA recommended reference range Performed By: #### M G, LIPID, A1C WTH eA, BMP, HEPATIC #### [facility] [address] [place] [address] Glucose mean value [Mass/vol ume] in Blood Estimated from glycated hemoglobinOrdered By: Lalo Carter on 04-25-2024 Average glucose Estimated from glycated hemoglobin (Bld) [Mass/Vol] 171 mg/dL [facility] Hematocrit [Volume Fraction] of Blood by Automated countOrdered By: Lalo Carter on 04-25-2024 Hematocrit (Bld) [Volume fraction] 28.8 % Low 34.0-46.4 [facility] Comment on above: Performed By: #### M G, LIPID, A1C WTH eA, BMP, HEPATIC #### [address] Hemoglobin A1c percentageOrd ered By: Lalo Carter on 04-25-2024 HbA1c (Bld) [Mass fraction] 7.6 % High 4.3-5.6 [facility] Comment on above: Increased risk for d iabetes: 5.7 - 6.4diabetes: >6.4glycemic control for adults with diabetes: <7.0 Result Comment: Incr eased risk for diabetes: 5.7 - 6.4 diabetes: >6.4 glycemic control for adults with diabetes: <7.0 Performed By: #### M G, LIPID, A1C WTH eA, BMP, HEPATIC #### [address] Hemoglobin [Mass/volume] in BloodOrdered By: Lalo Carter on 04-25-2024 Hemoglobin (Bld) [Mass/Vol] 9.4 g/dL Low 11.8-15.4 [facility] Comment on above: Performed By: #### M G, LIPID, A1C WTH eA, BMP, HEPATIC #### [address] Hepatic Panelon 04-25-2024 Albumin [Mass/Vol] 3.1 g/dL Low 3.5-5.7 [facility] Comment on above: Order Comment: FASTI NG Y Performed By: #### M G, LIPID, A1C WTH eA, BMP, HEPATIC #### [facility] [address] Bilirubin,Indirect 0.4 mg/dL Normal [facility] Comment on above: Order Comment: FASTI NG Y Performed By: #### M G, LIPID, A1C WTH eA, BMP, HEPATIC #### [facility] [address] Bilirubin.indirect [Mass/Vol] 0.10 mg/dL Normal 0.03-0.18 [facility] Comment on above: Order Comment: FASTI NG Y Performed By: #### M G, LIPID, A1C WTH eA, BMP, HEPATIC #### [facility] [address] INR in Platelet poor plasma by Coagulation assayOrdered By: Lalo Carter on 04-25-2024 INR Coag (PPP) [Relative time] 1.1 {INR} Normal [facility] Comment on above: INR Therapeutic Rang e A) Pre- and Peroperative OAT started two weeks before surgery. NOT HIP SURGERY: 1.5 - 2.5 HIP SURGERY: 2 - 3B) Primary and secondary prevention of venous THROMBOSIS: 2 - 3C) Active venous thrombosis, pulmonary embolismand prevention of recurrent venous thrombosis: 2 - 3D) Prevention of arterial thromboembolismincluding patients with mechanical heart valves: 3 - 4.5 Result Comment: INR Therapeutic Range A) Pre- and Peroperative OAT started two weeks before surgery. NOT HIP SURGERY: 1.5 - 2.5 HIP SURGERY: 2 - 3 B) Primary and secondary prevention of venous THROMBOSIS: 2 - 3 C) Active venous thrombosis, pulmonary embolism and prevention of recurrent venous thrombosis: 2 - 3 D) Prevention of arterial thromboembolism including patients with mechanical heart valves: 3 - 4.5 Performed By: #### M G, LIPID, A1C WTH eA, BMP, HEPATIC #### [facility] [address] Leukocytes [#/volume] correc paige for nucleated erythrocytes in Blood by Automated counOrdered By: Lalo Carter on 04-25-2024 WBC corrected for nucl RBC Auto (Bld) [#/Vol] 8.9 10*3/uL 3.8-11.6 [facility] Leukocytes [#/volume] in Blo od by Automated countOrdered By: Lalo Carter on 04-25-2024 WBC (Bld) [#/Vol] 8.9 10*3/uL Normal 3.8-11.6 [facility] Comment on above: Performed By: #### M G, LIPID, A1C WTH eA, BMP, HEPATIC #### [facility] [address] [place] [address] [facility] Lipid Panelon 04-25-2024 LDL Cholesterol,Calculate d 36 mg/dL Normal 0-100 [facility] Comment on above: Order Comment: FASTI NG Y Result Comment: LDL ATP III CLASSIFICATION LDL less than 100 mg/dL Optimal LDL 100-129 mg/dL Near or above optimal LDL 130-159 mg/dL Borderline high LDL 160-189 mg/dL High LDL greater than 189 mg/dL Very high Performed By: #### M G, LIPID, A1C WTH eA, BMP, HEPATIC #### [facility] [address] Triglyceride w/Reflex 92 mg/dL Normal 0-149 [facility] Comment on above: Order Comment: FASTI NG Y Result Comment: TRIG ATP III CLASSIFICATION TRIG less than 150 mg/dL Normal TRIG 150-199 mg/dL Borderline high TRIG 200-500 mg/dL High TRIG greater than 500 mg/dL Very high Standard traceable to the Center for Disease Conrtrol and Prevention (CDC) test method. Performed By: #### M G, LIPID, A1C WTH eA, BMP, HEPATIC #### [facility] [address] VLDL CHOLESTEROL 18 mg/dL Normal [facility] Comment on above: Order Comment: FASTI NG Y Performed By: #### M G, LIPID, A1C WTH eA, BMP, HEPATIC #### [facility] [address] [place] [address] [place] Lymphocytes [#/volume] in Bl ood by Automated countOrdered By: Lalo Carter on 04-25-2024 Lymphocytes (Bld) [#/Vol] 0.7 10*3/uL Low 1.00-4.8 [facility] Comment on above: Performed By: #### M G, LIPID, A1C WTH eA, BMP, HEPATIC #### [facility] [address] Lymphocytes/100 leukocytes i n Blood by Automated countOrdered By: Lalo Carter on 04-25-2024 Lymphocytes/100 WBC (Bld) 8.0 % Normal . [facility] Comment on above: Performed By: #### M G, LIPID, A1C WTH eA, BMP, HEPATIC #### [facility] [address] MCH [Entitic mass] by Automa paige countOrdered By: Lalo Carter on 04-25-2024 MCH (RBC) [Entitic mass] 29.7 pg Normal 24.7-34.3 [facility] Comment on above: Performed By: #### M G, LIPID, A1C WTH eA, BMP, HEPATIC #### [address] MCHC Auto (RBC) [Mass/Vol]Or dered By: Lalo Carter on 04-25-2024 MCHC (RBC) [Mass/Vol] 32.8 g/dL 32.0-35.0 [facility] MCV [Entitic volume] by Auto mated countOrdered By: Lalo Carter on 04-25-2024 MCV (RBC) [Entitic vol] 90.6 fL Normal 80-100 [facility] Comment on above: Performed By: #### M G, LIPID, A1C WTH eA, BMP, HEPATIC #### [facility] [address] Magnesium [Mass/volume] in S theresa or PlasmaOrdered By: Lalo Carter on 04-25-2024 Magnesium [Mass/Vol] 2.1 mg/dL Normal 1.9-2.7 [facility] Comment on above: Order Comment: FASTI NG Y Performed By: #### M G, LIPID, A1C WTH eA, BMP, HEPATIC #### [facility] [address] [place] [address] NM lissy perf SPECT rest stron 04-25-2024 NM lissy perf SPECT rest str [facility] [place] [address] [place] [address] Nuclear Medicine Report Signed Patient: Jenni Quinones MR#: [id number] 0 : 1940 Acct:[id number] Age/Sex: 84 / F ADM Date: 04/25/24 Loc: Room: [address] [place] [address] Type: DIS IN Attending Dr: Javan Gruber MD Copies to: MD Palmira Marx MD, FACC Ingrid Haynes DO Ordering Provider: Ingrid Haynes DO Date of Service: 04/25/24 NM/NM lissy perf SPECT rest str: chest pain ORDERED BY: Ingrid Haynes DO INDICATIONS: An 84-year-old patient with chest pain. Resting images were obtained after intravenous administration of 6.1 mCi of Cardiolite given on 04/25/2024, and stress images were obtained after intravenous administration of 19.8 mCi of Cardiolite given after Lexiscan administration on 04/25/2024. Subsequently, gated SPECT MPI was obtained. TOMOGRAPHIC DATA: The study is normal and demonstrated homogeneous tracer uptake. Left ventricular volume and wall motions are normal. Ejection fraction 59% with normal TID at 0.90. CONCLUSION: 1. Normal Lexiscan Cardiolite SPECT MPI. 2. No tomographic evidence of ischemia or prior myocardial infarction. 3. Normal left ventricular volume and wall motion, ejection fraction 59% with normal TID at 0.90. No previous studies are available for comparison. Transcribed By: NTS 04/25/241952 Dictated By: Palmira Lowery MD, FACC 04/25/24 1614 Signed By: 05/01/24 1218 Normal [facility] Neutrophils [#/volume] in Bl ood by Automated countOrdered By: Lalo Carter on 04-25-2024 Neutrophils (Bld) [#/Vol] 7.1 10*3/uL Normal 1.8-7.7 [facility] Comment on above: Performed By: #### M G, LIPID, A1C WTH eA, BMP, HEPATIC #### [facility] [address] [place] [address] [facility] No Panel InformationOrdered By: Javan Gruber on 04-25-2024 Bedside Glucose Comment Glu2: cleaned meter [facility] No Panel InformationOrdered By: Lalo Carter on 04-25-2024 Estimated GFR (CKD-EPI) 44.359 mL/Min [facility] Creatinine Clearance (Chem 32.54 [facility] Nucleated erythrocytes [Pres ence] in Blood by Automated countOrdered By: Lalo Carter on 04-25-2024 Nucleated RBC Auto Ql (Bld) 0.1 /100{WBC} 0-0.5 [facility] Partial Thromboplastin Timeo n 04-25-2024 aPTT Coag (Bld) [Time] 30.0 s Normal 25.1-36.5 [facility] Comment on above: Result Comment: A he matocrit value greater than 55% may lead to inaccurate results in coagulation testing. Patients having hematocrit values >55% require a special collection tube for coagulation studies. Please contact the laboratory at [phone] for redraw instructions. PERFORMED BY: [address] [place] [address] PATHOLOGIST ICING MIXER ALVARO LEWIS M.D. Performed By: #### M G, LIPID, A1C WTH eA, BMP, HEPATIC #### [facility] [address] [place] [address] Platelet mean volume [Entiti c volume] in Blood by Automated countOrdered By: Lalo Carter on 04-25-2024 Platelet mean volume (Bld) [Entitic vol] 8.0 fL Normal 6.3-10.7 [facility] Comment on above: Performed By: #### M G, LIPID, A1C WTH eA, BMP, HEPATIC #### [address] Platelets [#/volume] in Bloo d by Automated countOrdered By: Lalo Carter on 04-25-2024 Platelets (Bld) [#/Vol] 273 10*3/uL Normal 150-450 [facility] Comment on above: Performed By: #### M G, LIPID, A1C WTH eA, BMP, HEPATIC #### [facility] [address] [place] [address] [place] Potassium [Moles/volume] in Serum or PlasmaOrdered By: Lalo Carter on 04-25-2024 Potassium [Moles/Vol] 5.2 mmol/L High 3.5-5.1 [facility] Comment on above: Order Comment: FASTI NG Y Performed By: #### M G, LIPID, A1C WTH eA, BMP, HEPATIC #### [facility] [address] [place] [address] [place] Protein [Mass/volume] in Ser um or PlasmaOrdered By: Lalo Carter on 04-25-2024 Protein [Mass/Vol] 6.4 g/dL Normal 6.4-8.9 [facility] Comment on above: Order Comment: FASTI NG Y Performed By: #### M G, LIPID, A1C WTH eA, BMP, HEPATIC #### [facility] [address] [place] [address] [facility] Prothrombin time (PT)Ordered By: Lalo Carter on 04-25-2024 PT Coag (PPP) [Time] 12.9 s Normal 9.0-12.9 [facility] Comment on above: A hematocrit value g reater than 55% may lead to inaccurate results in coagulation testing. Patients having hematocrit values >55% require a special collection tube for coagulation studies. Please contact the laboratory at [phone] for redraw instructions. Result Comment: A he matocrit value greater than 55% may lead to inaccurate results in coagulation testing. Patients having hematocrit values >55% require a special collection tube for coagulation studies. Please contact the laboratory at [phone] for redraw instructions. Performed By: #### M G, LIPID, A1C WTH eA, BMP, HEPATIC #### [facility] [address] [place] [address] [facility] Serum globulin measurement b y calculation (mass/volume)Ordered By: Lalo Carter on 04-25-2024 Globulin (S) [Mass/Vol] 3.3 g/dL Normal [facility] Comment on above: Order Comment: FASTI NG Y Performed By: #### M G, LIPID, A1C WTH eA, BMP, HEPATIC #### [facility] [address] Serum or plasma albumin/glob ulin mass ratioOrdered By: Lalo Carter on 04-25-2024 Albumin/Globulin [Mass ratio] 0.9 {ratio} [facility] Comment on above: Order Comment: FASTI NG Y Performed By: #### M G, LIPID, A1C WTH eA, BMP, HEPATIC #### [facility] [address] Serum or plasma anion gap de terminationOrdered By: Lalo Carter on 04-25-2024 Anion gap [Moles/Vol] 10.9 mmol/L Normal 6.0-15.0 [facility] Comment on above: Order Comment: FASTI NG Y Performed By: #### M G, LIPID, A1C WTH eA, BMP, HEPATIC #### [facility] [address] Serum or plasma high density lipoprotein (HDL) cholesterol measurementOrdered By: Lalo Carter on 04-25-2024 Cholesterol in HDL [Mass/Vol] 34 mg/dL Normal 23-92 [facility] Comment on above: HDL CHOL ATP-III CLA SSIFICATION Cardiovascular RiskHDL > or equal to 60 mg/dL LOWHDL < 40 mg/dL HIGH Order Comment: FASTI NG Y Result Comment: HDL CHOL ATP-III CLASSIFICATION Cardiovascular Risk HDL > or equal to 60 mg/dL LOW HDL < 40 mg/dL HIGH Performed By: #### M G, LIPID, A1C WTH eA, BMP, HEPATIC #### [facility] [address] Serum or plasma non-glucuron idated bilirubin measurement (mass/volume)Ordered By: Lalo Carter on 04-25-2024 Bilirubin.indirect [Mass/Vol] 0.4 mg/dL [facility] Serum or plasma total choles terol/high density lipoprotein (HDL) cholesterol mass ratOrdered By: Lalo Carter on 04-25-2024 Cholesterol.total/Cho lesterol in HDL [Mass ratio] 2.6 {ratio} Normal <5.0 [facility] Comment on above: Order Comment: BETSEY Blackburn Result Comment: PERF ORMED BY: [place] [address] PATHOLOGIST ICING MIXER ALVARO LEWIS M.D. Performed By: #### M G, LIPID, A1C WTH eA, BMP, HEPATIC #### [facility] [address] [place] [address] [place] Sodium [Moles/volume] in Ser um or PlasmaOrdered By: Lalo Carter on 04-25-2024 Sodium [Moles/Vol] 138 mmol/L Normal 136-145 [facility] Comment on above: Order Comment: BETSEY Blackburn Performed By: #### M G, LIPID, A1C WTH eA, BMP, HEPATIC #### [facility] [address] [place] [address] [facility] Triglyceride [Mass/volume] i n Serum or PlasmaOrdered By: Lalo Carter on 04-25-2024 Triglyceride [Mass/Vol] 92 mg/dL 0-149 [facility] Comment on above: TRIG ATP III CLASSIF ICATIONTRIG less than 150 mg/dL NormalTRIG 150-199 mg/dL Borderline highTRIG 200-500 mg/dL High TRIG greater than 500 mg/dL Very highStandard traceable to the Center for Disease Conrtrol and Prevention (CDC) test method. Troponin I High Sensitivityo n 04-25-2024 Troponin I High Sensitivity 18.1 pg/mL High 0.0-15.0 [facility] Comment on above: Result Comment: PERF ORMED BY: [place] [address] PATHOLOGIST ICING MIXER ALVARO LEWIS M.D. Performed By: #### M G, LIPID, A1C WTH eA, BMP, HEPATIC #### [facility] [address] [place] [address] [place] Troponin I High Sensitivity 19.5 pg/mL High 0.0-15.0 [facility] Comment on above: Result Comment: PERF ORMED BY: [facility] [address] [place] [address] PATHOLOGIST ICING MIXER ALVARO LEWIS M.D. Performed By: #### M G, LIPID, A1C WTH eA, BMP, HEPATIC #### [facility] [address] [place] [address] [facility] Troponin I.cardiac [Mass/vol ume] in Serum or Plasma by Detection limit <= 0.01 ng/Ordered By: Lalo Carter on 04-25-2024 Troponin I.cardiac DL <= 0.01 ng/mL [Mass/Vol] 18.1 pg/mL High 0.0-15.0 [facility] Urea nitrogen [Mass/volume] in Serum or PlasmaOrdered By: Lalo Carter on 04-25-2024 Urea nitrogen [Mass/Vol] 31 mg/dL High 01-30 [facility] Comment on above: Order Comment: FASTI NG Y Performed By: #### M G, LIPID, A1C WTH eA, BMP, HEPATIC #### [facility] [address] [place] [address] [facility] Office Visiton 01-07-2024 Follow-up visit [id number] Jenni Quinones 1940 F Date Provider Department Center 01/07/2024 JOSEFINA STEIN SYMONE [place] Family History Problem Relation Age of Onset Diabetes Father Heart failure Father Other Other Family Status - Relation Status Age at Father Other Level of Service:77192 NM OFFICE/OUTPATIENT ESTABLISHED MOD MDM 30 MIN Normal [facility] 37on 12-07-2023 37 Have blood drawn [...] pillows than normal or in recliner. Normal [facility] Office Visiton 12-07-2023 Follow-up visit [id number] Jenni Quinones 1940 F Date Provider Department Center 12/07/2023 120-FARZANEH ARNDT SYMONE [place] Family History Problem Relation Age of Onset Diabetes Father Heart failure Father Other Other Family Status - Relation Status Age at Father Other Level of Service:19749 NM OFFICE/OUTPATIENT ESTABLISHED MOD MDM 30 MIN Normal [facility] 36on 11-16-2023 36 Regarding echo perfo rmed on 10/23/2023: MD Mariaa Fernandes MA; Farzaneh Arndt NP [place], she sees you soon, echo is consistent with volume overload, I could consider intensification of diuretics before determining the need for FARA Normal [facility] XR COMPARISON OF OUTSIDE HIRAL MSon 08-07-2023 XR COMPARISON OF OUTSIDE FILMS RADRPT There is no result for this study. This is a placeholder for comparison films only. Final result Normal [facility] XR COMPARISON OF OUTSIDE HIRAL MSon 05-29-2023 XR COMPARISON OF OUTSIDE FILMS RADRPT There is no result for this study. This is a placeholder for comparison films only. Final result Normal [facility] Office Visiton 05-14-2023 Follow-up visit [id number] Jenni Quinones 1940 F Date Provider Department Center 05/14/2023 [id number] IBRAHIM SYMONE [facility] Family History Problem Relation Age of Onset Diabetes Father Heart failure Father Other Other Family Status - Relation Status Age at Father Other Level of Service:44235 NM OFFICE/OUTPATIENT ESTABLISHED MOD MDM 30-39 MIN Normal [facility] FLUORO FOR SURGICAL PROCEDUR ESon 05-09-2023 FLUORO FOR SURGICAL PROCEDURES RADRPT Radiology exam is complete. No Radiologist dictation. Please follow up with ordering provider. Final result Normal [facility] SURGICALon 05-09-2023 SURGICAL [place] [facility] JENNI QUINONES [id number] Assoc. Page 1 of [address] [place] [address] PROC: 05/09/2023 [facility] RECV: 05/11/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 See microscopic description. Specimen: BIOPSY OF BONE, T12 VERTEBRAL BODY Gross Examination: The container is labeled Jenni Quinones, T12 vertebral body biopsy. Received in formalin [...] negative. The CD138 demonstrates scattered plasma cells. Ogema and lambda surface immunoglobulin light chain LALO is performed with adequate controls. The kappa and lambda stains demonstrate a polytypic plasma cell population. Overall, there is no evidence of an atypical infiltrate. Malignancy is not identified. *This test was developed and its performance characteristics determined by [facility]. It has not been cleared or approved by the U.S. Food and Drug Administration. Pursuant to the requirements of CLIA, this laboratory has established and verified the test's accuracy and precision. Additional information about this type of test is available upon request. [phone] INDY PLATT M.D., F.C.A.P. [facility]/ [facility] Printed on: 05/16/[address] [place] [id number] Original print date: 05/16/2023 Normal [facility] Surgical Pathology Requeston 05-09-2023 CANDICE SEE BELOW Normal [facility] Comment on above: Order Comment: Age-r elated osteoporosis with current pathological fracture of vertebra, initial encounter ([facility]) [M80.08XA] Pre-op diagnosis: T12 Vertebral Body Biopsy Result Comment: [place] [facility] JENNI QUINONES [id number]\X0D0A\Assoc. Page 1 of 1\X0D0A\[address]\X0D0A\[place] [address]\X0D0A\ PROC: 05/09/2023\X0D0A\[facility] RECV: 05/11/2023\X0D0A\[address] RPTD: 05/16/2023\X0D0A\[place] [address]\X0D0A\ LOC: [facility]\X0D0A\ ACCT: [id number] SEX: F\X0D0A\ : 1940 AGE: 83 Y\X0D0A\X0D0A\ PATHOLOGY REPORT\X0D0A\ ATTN: NON-STAFF PHYSICIAN\X0D0A\ REQ: KD BAHN\X0D0A\X0D0A\X0D0A\Copies To: JASVIR LEÓN\X0D0A\X0D0A\X0D0A\Clinical Information: AGE-RELATED OSTEOPOROSIS WITH CURRENT\X0D0A\PATHOLOGICAL FRACTURE OF VERTEBRA, INITIAL ENCOUNTER\X0D0A\X0D0A\FINAL DIAGNOSIS:\X0D0A\Bone, T12 vertebral body, needle core biopsy:\X0D0A\ Bone and marrow with fracture site changes.\X0D0A\ See microscopic description.\X0D0A\X0D0A\Specimen:\X0D0A\BIOPSY OF BONE, T12 VERTEBRAL BODY\X0D0A\X0D0A\X0D0A\Gross Examination:\X0D0A\The container is labeled Jenni Quinones, T12 vertebral body biopsy.\X0D0A\Received in formalin are [...] negative. The CD138 demonstrates scattered plasma cells. Ogema and\X0D0A\lambda surface immunoglobulin light chain LALO is performed with\X0D0A\adequate controls. The kappa and lambda stains demonstrate a polytypic\X0D0A\plasma cell population. Overall, there is no evidence of an atypical\X0D0A\infiltrate. Malignancy is not identified.\X0D0A\X0D0A\*This test was developed and its performance characteristics determined\X0D0A\by [facility]. It has not been cleared or\X0D0A\approved by the U.S. Food and Drug Administration. Pursuant to the\X0D0A\requirements of CLIA, this laboratory has established and verified the\X0D0A\test's accuracy and precision. Additional information about this type\X0D0A\of test is available upon request.\X0D0A\X0D0A\31348\X0D0A\63284\X0D0A\68861 x 3\X0D0A\45199\X0D0A\67903\X0D0A\X0D0A\X0D0A\X0D0A\ \X0D0A\ INDY PLATT M.D., FIngridC.A.P.\X0D0A\X0D0A\X0D0A\[facility] Printed on: 05/16/2023\X0D0A\[address]\X0D0A\[place], [place] [address]\X0D0A\Original print date: 05/16/2023 Performed By: #### 1 [id number] #### [facility] See Report 36on 02-04-2023 36 I reviewed labs from 02/02/2023. Please have her increased torsemide further to a total 60 mg daily (she can do 30 mg bid) and get same repeat labs in 2-3 weeks. Also please make sure she follows with Dr León regarding her low glucose. Normal [facility] Telephoneon 02-04-2023 Telephone [id number] Jenni Quinones 1940 F Date Provider Department Center 02/04/2023 JOSEFINA STEIN [facility] Family History Problem Relation Age of Onset Diabetes Father Heart failure Father Other Other Family Status - Relation Status Age at Father Other Normal [facility] DIGOXINon 12-06-2022 DIG <0.2 Critically low 0.9-2.0 The [facility] Comment on above: Performed By: #### B LDCX2 #### [facility] [address], [place] [address] Dr. Lisa Martinez PROF CHEM 8 (BAS METB)on Anion gap [Moles/Vol] 9.6 mmol/L Normal [facility] Comment on above: Performed By: #### T SHRFT4, BMP ####[facility] [address] [place], [place] [address]VhDr. Lisa Martinez Calcium [Mass/Vol] 9.0 mg/dL Normal 8.5-10.1 [facility] Comment on above: Performed By: #### T ALFRED4, BMP ####[facility] [address] [place] [address]Dr. Lisa Martinez Chloride [Moles/Vol] 103 mmol/L Normal 98-107 [facility] Comment on above: Performed By: #### T ALFRED4, BMP ####[facility] [address] [place] [address]Dr. Lisa Martinez CO2 [Moles/Vol] 33.4 mmol/L Critically high 21.0-32.0 [facility] Comment on above: Performed By: #### T ALFRED4, BMP ####[facility] [address] [place], [place] [address]Dr. Lisa Martinez Creatinine [Mass/Vol] 1.69 mg/dL Critically high 0.55-1.02 [facility] Comment on above: Performed By: #### T ALFRED4, BMP ####[facility] [address] [place], [place] [address]Dr. Lisa Martinez EGFR-AF CROATIAN 35 mL/min/1.73m2 Critically low >=60 [facility] Comment on above: Performed By: #### T KELLEY, BMP ####[facility] [address] [place], [place] [address]Dr. Lisa Martinez EGFR-NON AF CROATIAN 29 mL/min/1.73m2 Critically low >=60 [facility] Comment on above: Performed By: #### T ALFRED4, BMP ####[facility] [address] [place] [address]Dr. Lisa Martinez Glucose [Mass/Vol] 72 mg/dL Critically low 74-106 [facility] Comment on above: Performed By: #### T ALFRED4, BMP ####[facility] [address] [place], [place] [address]Dr. Lisa Martinez Potassium [Moles/Vol] 4.0 mmol/L Normal 3.5-5.1 [facility] Comment on above: Performed By: #### T ALFRED4, BMP ####[facility] [address] [place] [address]Dr. Lisa Martinez Sodium [Moles/Vol] 142 mmol/L Normal 136-145 [facility] [place] [facility] Comment on above: Performed By: #### T ALFRED4, BMP ####[facility] [address] [place] [address]Dr. Lisa Martinez Urea nitrogen [Mass/Vol] 42.0 mg/dL Critically high 7.0-18.0 [facility] Comment on above: Performed By: #### T ALFRED4, BMP ####[facility] [address] [place] [address]Dr. Lisa Martinez Urea nitrogen/Creatinine [Mass ratio] 24.9 mg/mg Normal [facility] Comment on above: Performed By: #### T ALFRED4, BMP ####[facility] [address] [place] [address]Dr. Lisa Martinez TSH W/ REFLEX TO FT4on 12-06 TSH 2.427 uIU/mL Normal 0.358-3.740 [facility] Comment on above: Performed By: #### T KELLEY, BMP ####[facility] [address] [place] [address]DrIngrid Martinez BNPon 11-15-2022 Natriuretic peptide B (Bld) [Mass/Vol] 6134.0 pg/mL Critically high <=1,800.0 [facility] Comment on above: Performed By: #### B LUMBER PRESS OPERATOR, CMP, MG ####[facility] [address] [place] [address]Dr. Lisa Martinez CBC AUTO DIFFon 11-15-2022 BASO # 0.0 103/ul Normal 0.0-0.1 [facility] Comment on above: Performed By: #### K U #### [facility] [address] [place] [address] [address] Lisa Martinez Basophils/100 WBC (Bld) 0.6 % Normal 0.2-2.0 [facility] Comment on above: Performed By: #### K U #### [facility] [address] [place] [address] Dr. Lisa Martinez EO # 0.2 103/ul Normal 0.0-0.7 [facility] Comment on above: Performed By: #### K U #### [facility] [address] [place] [address] Dr. Lisa Martinez Eosinophils/100 WBC (Bld) 2.9 % Normal 0.9-7.0 [facility] Comment on above: Performed By: #### K U #### [facility] [address] [place] [address] Dr. Lisa Martinez Erythrocyte distribution width (RBC) [Ratio] 14.9 % Normal 11.0-15.0 [facility] Comment on above: Performed By: #### K U #### [facility] [address] [place] [address] Dr. Lisa Martinez Hematocrit (Bld) [Volume fraction] 31.9 % Critically low 36.0-48.0 [facility] Comment on above: Performed By: #### K U #### [facility] [address] [place] [address] Dr. Lisa Martinez Hemoglobin (Bld) [Mass/Vol] 9.8 g/dL Critically low 12.0-16.0 [facility] Comment on above: Performed By: #### K U #### [facility] [address] [place] [address] Dr. Lisa Martinez IG # 0.02 10e3/ul Normal 0.00-0.03 [facility] Comment on above: Performed By: #### K U #### [facility] [address] [place] [address] Dr. Lisa Martinez IG % 0.3 % Normal 0.0-0.5 [facility] Comment on above: Performed By: #### K U #### [facility] [address] [place] [address] Dr. Lisa Martinez LYMPH # 0.7 103/ul Critically low 1.2-3.8 [facility] Comment on above: Performed By: #### K U #### [facility] [address] [place] [address] Dr. Lisa Martinez Lymphocytes/100 WBC (Bld) 10.9 % Critically low 20.5-60.0 [facility] Comment on above: Performed By: #### K U #### [facility] [address] [place] [address] Dr. Lisa Martinez MANUAL DIFF REQ NO Normal The [facility] Comment on above: Performed By: #### K U #### [facility] [address] [place] [address] Dr. Lisa Martinez MCH (RBC) [Entitic mass] 29.1 pg Normal 26.7-34.0 [facility] Comment on above: Performed By: #### K U #### [facility] [address] [place] [address] Dr. Lisa Martinez MCHC (RBC) [Mass/Vol] 30.7 g/dL Normal 29.9-35.2 [facility] Comment on above: Performed By: #### K U #### [facility] [address] [place] [address] Dr. Lisa Martinez MCV (RBC) [Entitic vol] 94.7 fL Normal 81.0-99.0 [facility] Comment on above: Performed By: #### K U #### [facility] [address] [place] [address] Dr. Lisa Martinez MONO # 0.8 103/ul Normal 0.3-0.8 [facility] Comment on above: Performed By: #### K U #### [facility] [address] [place] [address] Dr. Lisa Martinez Monocytes/100 WBC (Bld) 12.2 % Critically high 1.7-12.0 [facility] Comment on above: Performed By: #### K U #### [facility] [address] [place] [address] Dr. Lisa Martinze NEUT # 4.6 103/ul Normal 1.4-6.5 [facility] Comment on above: Performed By: #### K U #### [facility] [address] [place] [address] Dr. Lisa Martinez Neutrophils/100 WBC (Bld) 73.1 % Normal 43.0-75.0 [facility] Comment on above: Performed By: #### K U #### [facility] [address] [place] [address] [address] Lisa Martinez Platelet mean volume (Bld) [Entitic vol] 10.2 fL Normal 9.5-13.5 [facility] Comment on above: Performed By: #### K U #### [facility] [address] [place] [address] [address] Lisa Martinez PLT 186 103/ul Normal 150-450 [facility] Comment on above: Performed By: #### K U #### [facility] [address] [place] [address] Dr. Lisa Martinez RBC 3.37 106/ul Critically low 4.20-5.[address] [facility] Comment on above: Performed By: #### K U #### [facility] [address] [place] [address] [address] Lisa Martinez WBC 6.3 103/ul Normal 4.0-11.0 [facility] Comment on above: Performed By: #### K U #### [facility] [address] [place] [address] Dr. Lisa Martinez CHLORIDE URINE RANDOMon 11-06 Chloride, Urine 126 mmol/L Normal Not Estab. The [facility] Comment on above: Performed By: #### B LDCX2 #### [facility] [address] [place] [address] Dr. Lisa Martinez CULTURE URINEon 11-15-2022 CULTURE [...] <=0.12 S F Nitrofurantoin <=16 S F Trimethoprim/Sulfamethoxa zole <=[address] [facility] Comment on above: Performed By: #### U RCX #### [facility] [address] [place] [address] [address] Lisa Martinez DIGOXINon 11-15-2022 DIG 0.3 ng/mL Critically low 0.9-2.0 [facility] Comment on above: Performed By: #### B LUMBER PRESS OPERATOR, BMP #### [facility] [address] [place] [address] [address] Lisa Martinez MAGNESIUMon 11-15-2022 Magnesium [Mass/Vol] 2.2 mg/dL Normal 1.8-2.4 [facility] Comment on above: Performed By: #### B LUMBER PRESS OPERATOR, CMP, MG ####[facility] [address] [place] [address]DrIngrid Martinez POINT OF CARE GLUCOSEon 11-06 Glucose [Mass/Vol] 164 mg/dL Critically high 74-106 [facility] Comment on above: Performed By: #### C BC #### [facility] [address] [place] [address] [address] Lisa Martinez PROF 14(COMP METB)on 023 Albumin [Mass/Vol] 3.3 g/dL Critically low 3.4-5.0 [facility] Comment on above: Performed By: #### B LUMBER PRESS OPERATOR, CMP, MG ####[facility] [address] [place] [address]DrIngrid Martinez Albumin/Globulin [Mass ratio] 0.7 {ratio} Normal [facility] Comment on above: Performed By: #### B LUMBER PRESS OPERATOR, CMP, MG ####[facility] [address] [place] [address]DrIngrid Martinez ALP [Catalytic activity/Vol] 75 U/L Normal 46-116 [facility] Comment on above: Performed By: #### B LUMBER PRESS OPERATOR, CMP, MG ####[facility] [address] [place] [address]Dr. Lisa Martinez ALT [Catalytic activity/Vol] 14 U/L Normal 14-59 [facility] Comment on above: Performed By: #### B LUMBER PRESS OPERATOR, CMP, MG ####[facility] [address] [place] [address]Dr. Lisa Martinez Anion gap [Moles/Vol] 11.1 mmol/L Normal Th e [facility] Comment on above: Performed By: #### B LUMBER PRESS OPERATOR, CMP, MG ####[facility] [address] [place] [address]Dr. Lisa Martinez AST [Catalytic activity/Vol] 14 U/L Critically low 15-37 [facility] Comment on above: Performed By: #### B LUMBER PRESS OPERATOR, CMP, MG ####[facility] [address] [place] [address]Dr. Lisa Martinez Bilirubin [Mass/Vol] 0.9 mg/dL Normal 0.2-1.0 [facility] Comment on above: Performed By: #### B LUMBER PRESS OPERATOR, CMP, MG ####[facility] [address] [place] [address]Dr. Lisa Martinez Calcium [Mass/Vol] 9.1 mg/dL Normal 8.5-10.1 [facility] Comment on above: Performed By: #### B LUMBER PRESS OPERATOR, CMP, MG ####[facility] [address] [place] [address]Dr. Lisa Martinez Chloride [Moles/Vol] 100 mmol/L Normal 98-107 [facility] Comment on above: Performed By: #### B LUMBER PRESS OPERATOR, CMP, MG ####[facility] [address] [place] [address]Dr. Lisa Martinez CO2 [Moles/Vol] 32.6 mmol/L Critically high 21.0-32.0 [facility] Comment on above: Performed By: #### B LUMBER PRESS OPERATOR, CMP, MG ####[facility] [address] [place] [address]Dr. Lisa Martinez Creatinine [Mass/Vol] 2.65 mg/dL Critically high 0.55-1.02 [facility] Comment on above: Performed By: #### B LUMBER PRESS OPERATOR, CMP, MG ####[facility] [address] [place] [address]Dr. Lisa Martinez EGFR-AF CROATIAN 21 mL/min/1.73m2 Critically low >=60 [facility] Comment on above: Performed By: #### B LUMBER PRESS OPERATOR, CMP, MG ####[facility] [address] [place] [address]Dr. Lisa Martinez EGFR-NON AF CROATIAN 17 mL/min/1.73m2 Critically low >=60 [facility] Comment on above: Performed By: #### B LUMBER PRESS OPERATOR, CMP, MG ####[facility] [address] [place] [address]Dr. Lisa Martinez Globulin (S) [Mass/Vol] 4.7 g/dL Normal [facility] Comment on above: Performed By: #### B LUMBER PRESS OPERATOR, CMP, MG ####[facility] [address] [place] [address]Dr. Fabianachapis Martinez Glucose [Mass/Vol] 131 mg/dL Critically high 74-106 [facility] Comment on above: Performed By: #### B LUMBER PRESS OPERATOR, CMP, MG ####[facility] [address] [place], [place] [address]Dr. Lisa Martinez Potassium [Moles/Vol] 3.7 mmol/L Normal 3.5-5.1 [facility] Comment on above: Performed By: #### B LUMBER PRESS OPERATOR, CMP, MG ####[facility] [address] [place], [place] [address]Dr. Lisa Martinez Protein [Mass/Vol] 8.0 g/dL Normal 6.4-8.2 [facility] Comment on above: Performed By: #### B LUMBER PRESS OPERATOR, CMP, MG ####[facility] [address] [place], [place] [address]Dr. Lisa Martinez Sodium [Moles/Vol] 140 mmol/L Normal 136-145 [facility] Comment on above: Performed By: #### B LUMBER PRESS OPERATOR, CMP, MG ####[facility] [address] [place] [address]Dr. Yichapis Martinez Urea nitrogen [Mass/Vol] 66.0 mg/dL Critically high 7.0-18.0 [facility] Comment on above: Performed By: #### B LUMBER PRESS OPERATOR, CMP, MG ####[facility] [address] [place] [address]Dr. Lisa Martinez Urea nitrogen/Creatinine [Mass ratio] 24.9 mg/mg Normal [facility] Comment on above: Performed By: #### B LUMBER PRESS OPERATOR, CMP, MG ####[facility] [address] [place] [address]Dr. Lisa Martinez UREA NITROGEN, RANDOM URon 0 11-15-2022 Urea Nitrogen, Urine 165 mg/dL Normal Not Estab. [facility] Comment on above: Performed By: #### U NR ####[facility] [address] [place] [address]Dr. Lisa Martinez BNPon 11-14-2022 Natriuretic peptide B (Bld) [Mass/Vol] 8525.0 pg/mL Critically high <=1,800.0 [facility] Comment on above: Performed By: #### B LUMBER PRESS OPERATOR ####[facility] [address] [place] [address]Dr. Lisa Martinez CBC AUTO DIFFon 11-14-2022 BASO # 0.0 103/ul Normal 0.0-0.1 [facility] Comment on above: Performed By: #### C VDTB #### [facility] [address] [place] [address] [address] Lisa Martinez Basophils/100 WBC (Bld) 0.5 % Normal 0.2-2.0 [facility] Comment on above: Performed By: #### C VDTBH #### [facility] [address] [place] [address] [address] Lisa Martinez EO # 0.2 103/ul Normal 0.0-0.7 [facility] Comment on above: Performed By: #### C VDTBH #### [facility] [address] [place] [address] [address] Lisa Martinez Eosinophils/100 WBC (Bld) 3.4 % Normal 0.9-7.0 [facility] Comment on above: Performed By: #### C VDTBH #### [facility] [address] [place] [address] Dr. Lisa Martinez Erythrocyte distribution width (RBC) [Ratio] 14.9 % Normal 11.0-15.0 [facility] Comment on above: Performed By: #### C VDTBH #### [facility] [address] [place] [address] Dr. Lisa Martinez Hematocrit (Bld) [Volume fraction] 31.3 % Critically low 36.0-48.0 [facility] Comment on above: Performed By: #### C VDTBH #### [facility] [address] [place] [address] Dr. Lisa Martinze Hemoglobin (Bld) [Mass/Vol] 9.4 g/dL Critically low 12.0-16.0 [facility] Comment on above: Performed By: #### C VDTBH #### [facility] [address] [place] [address] Dr. Lisa Martinez IG # 0.01 10e3/ul Normal 0.00-0.03 [facility] Comment on above: Performed By: #### C VDTBH #### [facility] [address] [place] [address] Dr. Lisa Martinez IG % 0.2 % Normal 0.0-0.5 [facility] Comment on above: Performed By: #### C VDTBH #### [facility] [address] [place] [address] Dr. Lisa Martinez LYMPH # 0.9 103/ul Critically low 1.2-3.8 [facility] Comment on above: Performed By: #### C VDTBH #### [facility] [address] [place] [address] Dr. Lisa Martinez Lymphocytes/100 WBC (Bld) 15.2 % Critically low 20.5-60.0 [facility] Comment on above: Performed By: #### C VDTBH #### [facility] [address] [place] [address] Dr. Lisa Martinez MANUAL DIFF REQ NO Normal [facility] Comment on above: Performed By: #### C VDTBH #### [facility] [address] [place] [address] Dr. Lisa Martinez MCH (RBC) [Entitic mass] 29.0 pg Normal 26.7-34.0 [facility] Comment on above: Performed By: #### C VDTBH #### [facility] [address] [place] [address] Dr. Lisa Martinez MCHC (RBC) [Mass/Vol] 30.0 g/dL Normal 29.9-35.2 [facility] Comment on above: Performed By: #### C VDTBH #### [facility] [address] [place] [address] Dr. Lisa Martinez MCV (RBC) [Entitic vol] 96.6 fL Normal 81.0-99.0 [facility] Comment on above: Performed By: #### C VDTBH #### [facility] [address] [place] [address] Dr. Lisa Martinez MONO # 0.6 103/ul Normal 0.3-0.8 [facility] Comment on above: Performed By: #### C VDTBH #### [facility] [address] [place] [address] Dr. Lisa Martinez Monocytes/100 WBC (Bld) 10.2 % Normal 1.7-12.0 [facility] Comment on above: Performed By: #### C VDTBH #### [facility] [address] [place] [address] Dr. Lisa Martinez NEUT # 4.0 103/ul Normal 1.4-6.5 [facility] Comment on above: Performed By: #### C VDTBH #### [facility] [address] [place] [address] Dr. Lisa Martniez Neutrophils/100 WBC (Bld) 70.5 % Normal 43.0-75.0 [facility] Comment on above: Performed By: #### C VDTBH #### [facility] [address] [place] [address] Dr. Lisa Martinez Platelet mean volume (Bld) [Entitic vol] 10.3 fL Normal 9.5-13.5 [facility] Comment on above: Performed By: #### C VDTBH #### [facility] [address] [place] [address] Dr. Lisa Martinez PLT 192 103/ul Normal 150-450 [facility] Comment on above: Performed By: #### C VDTBH #### [facility] [address] [place] [address] Dr. Lisa Martinez RBC 3.24 106/ul Critically low 4.20-5.40 [facility] Comment on above: Performed By: #### C VDTBH #### [facility] [address] [place] [address] Dr. Lisa Martinez WBC 5.7 103/ul Normal 4.0-11.0 [facility] Comment on above: Performed By: #### C VDTBH #### [facility] [address] [place] [address] Dr. Lisa Martinez D-DIMERon 11-14-2022 D-DIMER 0.82 mg/L FEU Critically high <=0.59 [facility] Comment on above: Performed By: #### B LUMBER PRESS OPERATOR, BMP #### [facility] [address] [place] [address] Dr. Lisa Martinez D-DIMER COMMENTS SEE BELOW Normal [facility] Comment on above: Result Comment: Incr eases [...] and generalized hospitalization. Performed By: #### B LUMBER PRESS OPERATOR, BMP #### [facility] [address] [place] [address] Dr. Lisa Martinez ECHO LIMITED STUDYon 023 ECHO LIMITED STUDY Patient: NELLY URSZULA E M. Exam Date: 11/14/2022 : 1940 Gender:F Ordering : DR ROBERTO ZIMMERMAN . Admission #: [id number] Family : Order #: [id number] CLICK HERE TO VIEW EXAM ECHOCARDIOGRAM REPORT [...] Marley M.D. on 11/14/2022 at 16:[address] [facility] MAGNESIUMon 11-14-2022 Magnesium [Mass/Vol] 2.3 mg/dL Normal 1.8-2.4 [facility] Comment on above: Performed By: #### U RCX #### [facility] [address] [address] [address] Lisa Martinez NM LUNG VENT_PERFon 11-15-19 [...] by: SADIE GARCIA Date: 2022-11-14 19:11 Normal [facility] OCC BLD IMMUNO SCREENon OCCULT BLOOD Negative Normal NEGATIVE [facility] Comment on above: Performed By: #### B LDCX2 #### [facility] [address] [address] [address] Lisa Martinez POINT OF CARE GLUCOSEon Glucose [Mass/Vol] 155 mg/dL Critically high 74-106 [facility] Comment on above: Performed By: #### P OCGLUC ####[facility] [address] [place] [id number]. Lisa Martinez Glucose [Mass/Vol] 148 mg/dL Critically high 74-106 [facility] Comment on above: Performed By: #### B LDCX2 #### [facility] [address] [place] [address] Dr. Lisa Martinez Glucose [Mass/Vol] 76 mg/dL Normal 74-106 [facility] Comment on above: Performed By: #### B LDCX2 #### [facility] [address] [place] [address] Dr. Lisa Martinez POTASSIUM URINEon 11-14-2022 UR POTASSIUM 21.3 mmol/L Normal [facility] Comment on above: Performed By: #### K U #### [facility] [address] [place] [address] Dr. Lisa Martinez PROF 14(COMP METB)on 023 Albumin [Mass/Vol] 3.3 g/dL Critically low 3.4-5.0 [facility] Comment on above: Performed By: #### U RCX #### [facility] [address] [place] [address] Dr. Lisa Martinez Albumin/Globulin [Mass ratio] 0.7 {ratio} Normal [facility] Comment on above: Performed By: #### U RCX #### [facility] [address] [place] [address] Dr. Lisa Martinez ALP [Catalytic activity/Vol] 72 U/L Normal 46-116 [facility] Comment on above: Performed By: #### U RCX #### [facility] [address] [place] [address] Dr. Lisa Martinez ALT [Catalytic activity/Vol] 16 U/L Normal 14-59 [facility] Comment on above: Performed By: #### U RCX #### [facility] [facility] [address] [place] [address] Dr. Lisa Martinez Anion gap [Moles/Vol] 13.0 mmol/L Normal [facility] Comment on above: Performed By: #### U RCX #### [facility] [address] [place] [address] Dr. Lisa Martinez AST [Catalytic activity/Vol] 13 U/L Critically low 15-37 [facility] Comment on above: Performed By: #### U RCX #### [facility] [address] [place], [place] [id number] Dr. Lisa Martinez Bilirubin [Mass/Vol] 0.8 mg/dL Normal 0.2-1.0 [facility] Comment on above: Performed By: #### U RCX #### [facility] [address] [place] [address] Dr. Lisa Martinez Calcium [Mass/Vol] 9.0 mg/dL Normal 8.5-10.1 [facility] Comment on above: Performed By: #### U RCX #### [facility] [address] [place] [address] Dr. Lisa Martinez Chloride [Moles/Vol] 100 mmol/L Normal 98-107 [facility] Comment on above: Performed By: #### U RCX #### [facility] [address] [place] [address] Dr. Lisa Martinez CO2 [Moles/Vol] 30.0 mmol/L Normal 21.0-32.0 [facility] Comment on above: Performed By: #### U RCX #### [facility] [address] [place] [address] Dr. Lisa Martinez Creatinine [Mass/Vol] 2.79 mg/dL Critically high 0.55-1.02 [facility] Comment on above: Performed By: #### U RCX #### [facility] [address] [place] [address] Dr. Lisa Martinez EGFR-AF CROATIAN 20 mL/min/1.73m2 Critically low >=60 [facility] Comment on above: Performed By: #### U RCX #### [facility] [address] [place] [address] Dr. Lisa Martinez EGFR-NON AF CROATIAN 16 mL/min/1.73m2 Critically low >=60 [facility] Comment on above: Performed By: #### U RCX #### [facility] [address] [place] [address] Dr. Lisa Martinez Globulin (S) [Mass/Vol] 4.6 g/dL Normal [facility] Comment on above: Performed By: #### U RCX #### [facility] [address] [address] [address] Lisa Martinez Glucose [Mass/Vol] 153 mg/dL Critically high 74-106 [facility] Comment on above: Performed By: #### U RCX #### [facility] [address] [place] [address] Dr. Lisa Martinez Potassium [Moles/Vol] 4.0 mmol/L Normal 3.5-5.1 [facility] Comment on above: Performed By: #### U RCX #### [facility] [address] [place] [address] Dr. Lisa Martinez Protein [Mass/Vol] 7.9 g/dL Normal 6.4-8.2 [facility] Comment on above: Performed By: #### U RCX #### [facility] [address] [place] [address] Dr. Lsia Martinez Sodium [Moles/Vol] 139 mmol/L Normal 136-145 [facility] Comment on above: Performed By: #### U RCX #### [facility] [address] [place] [address] Dr. Lisa Martinez Urea nitrogen [Mass/Vol] 67.0 mg/dL Critically high 7.0-18.0 [facility] Comment on above: Performed By: #### U RCX #### [facility] [address] [place] [address] Dr. Lisa Martinez Urea nitrogen/Creatinine [Mass ratio] 24.0 mg/mg Normal [facility] Comment on above: Performed By: #### U RCX #### [facility] [address] [place] [address] Dr. Lisa Martinez SODIUM RANDOM URINEon 2022 Sodium (U) [Moles/Vol] 122 mmol/L Critically high 30-90 [facility] Comment on above: Performed By: #### B LUMBER PRESS OPERATOR, BMP #### [facility] [address] [place] [address] Dr. Lisa Martinez T3, TOTAL (TRIIODOTHYRONINE) on 11-14-2022 T3, TOTAL 84 ng/dL Normal 71-180 [facility] Comment on above: Performed By: #### U RCX #### [facility] [address] [place] [address] Dr. Lisa Martinez BNPon 11-13-2022 Natriuretic peptide B (Bld) [Mass/Vol] 44762.0 pg/mL Critically high <=1,800.0 [facility] Comment on above: Performed By: #### B MP, HSTROPN, BNP ####[facility] [id number] [address]Dr. Lisa Martinez CARDIAC DONY 3-6on 3 CK [Catalytic activity/Vol] 60 U/L Normal 26-192 [facility] Comment on above: Performed By: #### C MREP ####[facility] [address] [address]Dr. Lisa Martinez CK.MB [Mass/Vol] 0.96 ng/mL Normal <=3.60 [facility] Comment on above: Performed By: #### C MREP ####[facility] [id number] [place], [place] [address]Dr. Lisa Martinez HSTROP 16.3 pg/mL Normal 4.0-51.3 [facility] Comment on above: Result Comment: CUT- OFF POINTS HAVE BEEN ESTABLISHED BASED ON THE FOURTH UNIVERSAL DEFINITIONS OF MYOCARDIAL INFARCTION. THE UPPER REFERENCE LIMIT (URL) OF TROPONIN, DEFINED THE 99TH PERCENTILE OF cTnI DISTRIBUTION IN A REFERENCE POPULATION, HAS BEEN CONFIRMED THE DECISION THRESHOLD FOR MO DIAGNOSIS. Performed By: #### C MREP ####[facility] [address] [place], [place] [address]Dr. Lisa Martinez CK [Catalytic activity/Vol] 60 U/L Normal 26-192 [facility] Comment on above: Performed By: #### C BC #### [facility] [address] [place] [address] Dr. Lisa Martinez CK.MB [Mass/Vol] 0.94 ng/mL Normal <=3.60 [facility] Comment on above: Performed By: #### C BC #### [facility] [address] [place] [address] Dr. Lisa Martinez HSTROP 15.1 pg/mL Normal 4.0-51.3 [facility] Comment on above: Result Comment: CUT- OFF POINTS HAVE BEEN ESTABLISHED BASED ON THE FOURTH UNIVERSAL DEFINITIONS OF MYOCARDIAL INFARCTION. THE UPPER REFERENCE LIMIT (URL) OF TROPONIN, DEFINED THE 99TH PERCENTILE OF cTnI DISTRIBUTION IN A REFERENCE POPULATION, HAS BEEN CONFIRMED THE DECISION THRESHOLD FOR MO DIAGNOSIS. Performed By: #### C BC #### [facility] [address] [place] [address] Dr. Lisa Martinez CBC AUTO DIFFon 11-13-2022 BASO # 0.1 103/ul Normal 0.0-0.1 [facility] Comment on above: Performed By: #### C BC #### [facility] [address] [place] [address] Dr. Lisa Martinez Basophils/100 WBC (Bld) 0.6 % Normal 0.2-2.0 [facility] Comment on above: Performed By: #### C BC #### [facility] [address] [place] [address] Dr. Lisa Martinez EO # 0.2 103/ul Normal 0.0-0.7 [facility] Comment on above: Performed By: #### C BC #### [facility] [address] [place] [address] Dr. Lisa Martinez Eosinophils/100 WBC (Bld) 1.8 % Normal 0.9-7.0 [facility] Comment on above: Performed By: #### C BC #### [facility] [address] [place] [address] Dr. Lisa Martinez Erythrocyte distribution width (RBC) [Ratio] 15.0 % Normal 11.0-15.0 [facility] Comment on above: Performed By: #### C BC #### [facility] [address] [place] [address] Dr. Lisa Martinez Hematocrit (Bld) [Volume fraction] 32.9 % Critically low 36.0-48.0 [facility] Comment on above: Performed By: #### C BC #### [facility] [address] [place] [address] Dr. Lisa Martinez Hemoglobin (Bld) [Mass/Vol] 9.8 g/dL Critically low 12.0-16.0 [facility] Comment on above: Performed By: #### C BC #### [facility] [address] [place] [address] Dr. Lisa Martinez IG # 0.02 10e3/ul Normal 0.00-0.03 [facility] Comment on above: Performed By: #### C BC #### [facility] [address] [place] [address] Dr. Lisa Martinez IG % 0.2 % Normal 0.0-0.5 [facility] Comment on above: Performed By: #### C BC #### [facility] [address] [place] [address] Dr. Lisa Martinez LYMPH # 0.7 103/ul Critically low 1.2-3.8 [facility] Comment on above: Performed By: #### C BC #### [facility] [address] [place] [address] Dr. Lisa Martinez Lymphocytes/100 WBC (Bld) 7.8 % Critically low 20.5-60.0 [facility] Comment on above: Performed By: #### C BC #### [facility] [address] [place] [address] Dr. Lisa Martinez MANUAL DIFF REQ NO Normal [facility] Comment on above: Performed By: #### C BC #### [facility] [address] [place] [address] Dr. Lisa Martinez MCH (RBC) [Entitic mass] 29.4 pg Normal 26.7-34.0 [facility] Comment on above: Performed By: #### C BC #### [facility] [address] [place] [address] Dr. Lisa Martinez MCHC (RBC) [Mass/Vol] 29.8 g/dL Critically low 29.9-35.2 [facility] Comment on above: Performed By: #### C BC #### [facility] [address] [place] [address] Dr. Lisa Martinez MCV (RBC) [Entitic vol] 98.8 fL Normal 81.0-99.0 [facility] Comment on above: Performed By: #### C BC #### [facility] [address] [place] [address] Dr. Lisa Martinez MONO # 0.7 103/ul Normal 0.3-0.8 [facility] Comment on above: Performed By: #### C BC #### [facility] [address] [place] [address] Dr. Lisa Martinez Monocytes/100 WBC (Bld) 7.6 % Normal 1.7-12.0 [facility] Comment on above: Performed By: #### C BC #### [facility] [address] [place] [address] Dr. Lisa Martinez NEUT # 7.0 103/ul Critically high 1.4-6.5 [facility] Comment on above: Performed By: #### C BC #### [facility] [address] [place] [address] Dr. Lisa Martinez Neutrophils/100 WBC (Bld) 82.0 % Critically high 43.0-75.0 [facility] Comment on above: Performed By: #### C BC #### [facility] [address] [place] [address] Dr. Lisa Martinez Platelet mean volume (Bld) [Entitic vol] 10.6 fL Normal 9.5-13.5 [facility] Comment on above: Performed By: #### C BC #### [facility] [address] [place] [address] Dr. Lisa Martinez PLT 209 103/ul Normal 150-450 [facility] Comment on above: Performed By: #### C BC #### [facility] [address] [place] [address] Dr. Lisa Martinez RBC 3.33 106/ul Critically low 4.20-5.[address] [facility] Comment on above: Performed By: #### C BC #### [facility] [address] [place] [address] Dr. Lisa Martinez WBC 8.6 103/ul Normal 4.0-11.0 [facility] Comment on above: Performed By: #### C BC #### [facility] [address] [address] [address] Lisa Martinez LACTATE/LACTIC ACIDon 2022 Lactate [Moles/Vol] 3.4 mmol/L Critically high 0.4-2.0 [facility] Comment on above: Performed By: #### L ACT ####[facility] [address] [address]Dr. Lisa Martinez MAGNESIUMon 11-13-2022 Magnesium [Mass/Vol] 2.6 mg/dL Critically high 1.8-2.4 [facility] Comment on above: Performed By: #### B LUMBER PRESS OPERATOR, BMP #### [facility] [address] [place] [address] Dr. Lisa Martinez PROF CHEM 8 (BAS METB)on Anion gap [Moles/Vol] 15.7 mmol/L Normal [facility] Comment on above: Performed By: #### C BC #### [facility] [address] [place] [address] Dr. Lisa Martinez Calcium [Mass/Vol] 9.1 mg/dL Normal 8.5-10.1 [facility] Comment on above: Performed By: #### C BC #### [facility] [address] [place] [address] Dr. Lisa Martinez Chloride [Moles/Vol] 103 mmol/L Normal 98-107 [facility] Comment on above: Performed By: #### C BC #### [facility] [address] [place] [address] Dr. Lisa Martinez CO2 [Moles/Vol] 27.2 mmol/L Normal 21.0-32.0 [facility] Comment on above: Performed By: #### C BC #### [facility] [address] [place] [address] Dr. Lisa Martinez Creatinine [Mass/Vol] 2.91 mg/dL Critically high 0.55-1.02 [facility] Comment on above: Performed By: #### C BC #### [facility] [address] [address] [address] Lisa Martinez EGFR-AF CROATIAN 19 mL/min/1.73m2 Critically low >=60 [facility] Comment on above: Performed By: #### C BC #### [facility] [address] [address] [address] Lisa Martinez EGFR-NON AF CROATIAN 15 mL/min/1.73m2 Critically low >=60 [facility] Comment on above: Performed By: #### C BC #### [facility] [address] [address] [address] Lisa Martinez Glucose [Mass/Vol] 172 mg/dL Critically high 74-106 [facility] Comment on above: Performed By: #### C BC #### [facility] [address] [address] [address] Lisa Martinez Potassium [Moles/Vol] 4.9 mmol/L Normal 3.5-5.1 [facility] Comment on above: Performed By: #### C BC #### [facility] [address] [address] [address] Lisa Martinez Sodium [Moles/Vol] 141 mmol/L Normal 136-145 [facility] Comment on above: Performed By: #### C BC #### [facility] [address] [address] [address] Lisa Martinez Urea nitrogen [Mass/Vol] 64.0 mg/dL Critically high 7.0-18.0 [facility] Comment on above: Performed By: #### C BC #### [facility] [address] [address] [address] Lisa Martinez Urea nitrogen/Creatinine [Mass ratio] 22.0 mg/mg Normal [facility] Comment on above: Performed By: #### C BC #### [facility] [address] [id number] [address] Lisa Martinez Anion gap [Moles/Vol] 17.4 mmol/L Normal [facility] Comment on above: Performed By: #### B MP, HSTROPN, BNP ####[facility] [address] [address]Dr. Lisa Martinez Calcium [Mass/Vol] 9.1 mg/dL Normal 8.5-10.1 [facility] Comment on above: Performed By: #### B MP, HSTROPN, BNP ####[facility] [address] [address]Dr. Lisa Martinez Chloride [Moles/Vol] 104 mmol/L Normal 98-107 [facility] Comment on above: Performed By: #### B MP, HSTROPN, BNP ####[facility] [address] [address]Dr. Lisa Martinez CO2 [Moles/Vol] 26.9 mmol/L Normal 21.0-32.0 [facility] Comment on above: Performed By: #### B MP, HSTROPN, BNP ####[facility] [id number] [place], [place] [address]Dr. Lisa Martinez Creatinine [Mass/Vol] 3.12 mg/dL Critically high 0.55-1.02 [facility] Comment on above: Performed By: #### B MP, HSTROPN, BNP ####[facility] [address] [place], [place] [address]Dr. Lisa Martinez EGFR-AF CROATIAN 17 mL/min/1.73m2 Critically low >=60 [facility] Comment on above: Performed By: #### B MP, HSTROPN, BNP ####[facility] [address] [place], [place] [address]Dr. Lisa Martinez EGFR-NON AF CROATIAN 14 mL/min/1.73m2 Critically low >=60 [facility] Comment on above: Performed By: #### B MP, HSTROPN, BNP ####[facility] [id number] [place], [place] [address]Dr. Lisa Martinez Glucose [Mass/Vol] 131 mg/dL Critically high 74-106 [facility] Comment on above: Performed By: #### B MP, HSTROPN, BNP ####[facility] [address] [address]Dr. Lisa Martinez Potassium [Moles/Vol] 5.3 mmol/L Critically high 3.5-5.1 [facility] Comment on above: Performed By: #### B NUHA HSTROPN, BNP ####[facility] [address] [address]Dr. Lisa Martinez Sodium [Moles/Vol] 143 mmol/L Normal 136-145 [facility] [place] [facility] Comment on above: Performed By: #### B NUHA, HSTROPN, BNP ####[facility] [address] [id number]. Fabianachapis Martinez Urea nitrogen [Mass/Vol] 59.0 mg/dL Critically high 7.0-18.0 [facility] Comment on above: Performed By: #### B NUHA HSTROPN, BNP ####[facility] [address] [address]Dr. Lisa Martinez Urea nitrogen/Creatinine [Mass ratio] 18.9 mg/mg Normal [facility] Comment on above: Performed By: #### B NUHA HSTROPN, BNP ####[facility] [address] [address]Dr. Lisa Martinez SYMPTOMATIC COVID-19 ANTIGEN on 11-13-2022 EUA Statement SEE BELOW Normal [facility] Comment on above: Result Comment: [...] sooner. Performed By: #### C VDTBH #### [facility] [address] [address] [address] Lisa Martinez SARS-CoV-2 (COVID-19) RNA RACIEL+probe Ql (Unsp spec) Negative Normal NEGATIVE [facility] Comment on above: Performed By: #### C VDTBH #### [facility] [address] [address] [address] Lisa Martinez T4on 11-13-2022 T4 [Mass/Vol] 6.70 ug/dL Normal 4.80-13.90 [facility] Comment on above: Performed By: #### B LUMBER PRESS OPERATOR, BMP #### [facility] [address] [address] [address] Lisa Martinez TROPONIN, HIGH SENSITIVITYon 11-13-2022 HSTROP 17.9 pg/mL Normal 4.0-51.3 [facility] Comment on above: Result Comment: CUT- OFF POINTS HAVE BEEN ESTABLISHED BASED ON THE FOURTH UNIVERSAL DEFINITIONS OF MYOCARDIAL INFARCTION. THE UPPER REFERENCE LIMIT (URL) OF TROPONIN, DEFINED THE 99TH PERCENTILE OF cTnI DISTRIBUTION IN A REFERENCE POPULATION, HAS BEEN CONFIRMED THE DECISION THRESHOLD FOR MO DIAGNOSIS. Performed By: #### B MP, HSTROPN, BNP ####[facility] [address] [address]Dr. Lisa Martinez TSHon 11-13-2022 TSH 5.233 uIU/mL Critically high 0.358-3.740 [facility] Comment on above: Performed By: #### B LUMBER PRESS OPERATOR, BMP #### [facility] [address] [address] [address] Lisa Martinez UA RANDOM W/MICROSCOPICon BACTERIA SMALL Abnormal NONE SEEN [facility] Comment on above: Performed By: #### K U #### [facility] [address] [place] [address] Dr. Lisa Martinez Bilirubin Ql (U) Negative Normal NEGATIVE [facility] Comment on above: Performed By: #### K U #### [facility] [address] [address] [address] Lisa Martinez CAST SEEN Abnormal NONE SEEN [facility] Comment on above: Performed By: #### K U #### [facility] [address] [place] [address] Dr. Lias Martinez Clarity (U) CLEAR Normal CLEAR [facility] Comment on above: Performed By: #### K U #### [facility] [address] [place] [address] Dr. Lisa Martinez Color (U) LT. YELLOW Normal YELLOW [facility] Comment on above: Performed By: #### K U #### [facility] [address] [place] [address] Dr. Lisa Martinez Crystals LM Nom (Urine sed) NONE SEEN Normal NONE SEEN [facility] Comment on above: Performed By: #### K U #### [facility] [address] [place] [address] Dr. Lisa Martinez Epithelial cells LM Ql (Urine sed) FEW Abnormal NONE SEEN /RARE [facility] Comment on above: Performed By: #### K U #### [facility] [address] [place] [address] Dr. Lisa Martinez Glucose Ql (U) Negative Normal NEGATIVE [facility] Comment on above: Performed By: #### K U #### [facility] [address] [place] [address] Dr. Lisa Martinez Hemoglobin Ql (U) Negative Normal NEGATIVE [facility] Comment on above: Performed By: #### K U #### [facility] [address] [place] [address] Dr. Lisa Martinez HYALINE CAST FEW Normal [facility] Comment on above: Performed By: #### K U #### [facility] [address] [place] [address] Dr. Lisa Martinez Ketones Ql (U) Negative Normal NEGATIVE [facility] Comment on above: Performed By: #### K U #### [facility] [address] [place] [address] Dr. Lisa Martinez LEUKOCYTES Negative Normal NEGATIVE [facility] Comment on above: Performed By: #### K U #### [facility] [address] [place] [address] Dr. Lisa Martinez MUCOUS NONE SEEN Normal NONE SEEN [facility] Comment on above: Performed By: #### K U #### [facility] [address] [place] [address] Dr. Lisa Martinez Nitrite Ql (U) Negative Normal NEGATIVE [facility] Comment on above: Performed By: #### K U #### [facility] [address] [place] [address] Dr. Lisa Martinez pH (U) 5.5 [pH] Normal 5-9 [facility] Comment on above: Performed By: #### K U #### [facility] [address] [place] [address] Dr. Lisa Martinez RBC NONE SEEN Abnormal 0-2 [facility] Comment on above: Performed By: #### K U #### [facility] [address] [place] [address] Dr. Lisa Martinez SPEC GRAVITY 1.010 Normal 1.005-<=1.[address] [facility] Comment on above: Performed By: #### K U #### [facility] [address] [place] [address] Dr. Lisa Martinez UA PROTEIN Negative Normal NEGATIVE/ TRACE [facility] Comment on above: Performed By: #### K U #### [facility] [address] [place] [address] Dr. Lisa Martinez Urobilinogen Qn (U) 0.2 {Mike'U}/dL Normal 0.2 - 1. 0 [facility] Comment on above: Performed By: #### K U #### [facility] [address] [place] [address] Dr. Lisa Martinez WBC NONE SEEN Normal NONE SEEN [facility] Comment on above: Performed By: #### K U #### [facility] [address] [place] [address] Dr. Lisa Martinez US KIDNEYS BLADDERon 023 US KIDNEYS BLADDER EXAM: US KIDNEYS AIDEN DDER HISTORY: Acute renal failure syndrome COMPARISON: None. [...] by: Gela ARANDA Date: 2022-11-13 16:[address] [facility] XR CHEST 1 Von 11-13-2022 XR [...] MEENA WOOTEN Date: 2022-11-13 12:20 Normal [facility] PROF CHEM 8 (BAS METB)on Anion gap [Moles/Vol] 13.5 mmol/L Normal [facility] Comment on above: Performed By: #### B MP ####[facility] [address] [place], [place] [address]Nx. Lisa Martinez Calcium [Mass/Vol] 9.2 mg/dL Normal 8.5-10.1 [facility] Comment on above: Performed By: #### B MP ####[facility] [address] [place], [place] [address]Mq. Lisa Martinez Chloride [Moles/Vol] 108 mmol/L Critically high 98-107 [facility] Comment on above: Performed By: #### B MP ####[facility] [address] [id number]. Lisa Martinez CO2 [Moles/Vol] 25.6 mmol/L Normal 21.0-32.0 [facility] Comment on above: Performed By: #### B MP ####[facility] [address] [id number]. Lisa Martinez Creatinine [Mass/Vol] 1.53 mg/dL Critically high 0.55-1.02 [facility] Comment on above: Performed By: #### B MP ####[facility] [address] [place] [id number]. Lisa Martinez EGFR-AF CROATIAN 39 mL/min/1.73m2 Critically low >=60 [facility] Comment on above: Performed By: #### B MP ####[facility] [address] [place], [place] [address]Dr. Fabianachapis Juan EGFR-NON AF CROATIAN 32 mL/min/1.73m2 Critically low >=60 [facility] Comment on above: Performed By: #### B MP ####[facility] [address] [place] [address]Dr. Lisa Martinez Glucose [Mass/Vol] 69 mg/dL Critically low 74-106 [facility] Comment on above: Performed By: #### B MP ####[facility] [address] [place] [address]Dr. Fabianachapis Juan Potassium [Moles/Vol] 5.1 mmol/L Normal 3.5-5.1 [facility] Comment on above: Performed By: #### B MP ####[facility] [address] [place] [id number]. Fabianachapis Martinez Sodium [Moles/Vol] 142 mmol/L Normal 136-145 [facility] Comment on above: Performed By: #### B MP ####[facility] [address] [place] [address]Dr. Fabianachapis Martinez Urea nitrogen [Mass/Vol] 32.0 mg/dL Critically high 7.0-18.0 [facility] Comment on above: Performed By: #### B MP ####[facility] [address] [place] [address]Dr. Lisa Martinez Urea nitrogen/Creatinine [Mass ratio] 20.9 mg/mg Normal [facility] Comment on above: Performed By: #### B MP ####[facility] [address] [place] [id number]. Lisa Martinez BNPon 10-08-2022 Natriuretic peptide B (Bld) [Mass/Vol] 3489.0 pg/mL Critically high <=1,800.0 [facility] Comment on above: Performed By: #### B LUMBER PRESS OPERATOR, BMP #### [facility] [address] [place] [address] Dr. Lisa Martinez CBC AUTO DIFFon 10-08-2022 BASO # 0.0 103/ul Normal 0.0-0.1 [facility] Comment on above: Performed By: #### B LUMBER PRESS OPERATOR, BMP #### [facility] [address] [place] [address] Dr. Lisa Martinez Basophils/100 WBC (Bld) 0.6 % Normal 0.2-2.0 [facility] Comment on above: Performed By: #### B LUMBER PRESS OPERATOR, BMP #### [facility] [address] [place] [address] Dr. Lisa Martinez EO # 0.2 103/ul Normal 0.0-0.7 [facility] Comment on above: Performed By: #### B LUMBER PRESS OPERATOR, BMP #### [facility] [address] [place] [address] Dr. Lisa Martinez Eosinophils/100 WBC (Bld) 3.5 % Normal 0.9-7.0 [facility] Comment on above: Performed By: #### B LUMBER PRESS OPERATOR, BMP #### [facility] [address] [place] [address] Dr. Lisa Martinez Erythrocyte distribution width (RBC) [Ratio] 15.5 % Critically high 11.0-15.0 [facility] Comment on above: Performed By: #### B LUMBER PRESS OPERATOR, BMP #### [facility] [address] [place] [address] Dr. Lisa Martinez Hematocrit (Bld) [Volume fraction] 31.8 % Critically low 36.0-48.0 [facility] Comment on above: Performed By: #### B LUMBER PRESS OPERATOR, BMP #### [facility] [address] [place] [address] Dr. Lisa Martinez Hemoglobin (Bld) [Mass/Vol] 9.8 g/dL Critically low 12.0-16.0 [facility] Comment on above: Performed By: #### B LUMBER PRESS OPERATOR, BMP #### [facility] [address] [place] [address] Dr. Lisa Martinez IG # 0.02 10e3/ul Normal 0.00-0.03 [facility] Comment on above: Performed By: #### B LUMBER PRESS OPERATOR, BMP #### [facility] [address] [place] [address] Dr. Lisa Martinez IG % 0.3 % Normal 0.0-0.5 [facility] Comment on above: Performed By: #### B LUMBER PRESS OPERATOR, BMP #### [facility] [address] [place] [address] Dr. Lisa Martinez LYMPH # 0.9 103/ul Critically low 1.2-3.8 [facility] Comment on above: Performed By: #### B LUMBER PRESS OPERATOR, BMP #### [facility] [address] [place] [address] Dr. Lisa Martinez Lymphocytes/100 WBC (Bld) 14.0 % Critically low 20.5-60.0 [facility] Comment on above: Performed By: #### B LUMBER PRESS OPERATOR, BMP #### [facility] [address] [place] [address] Dr. Lisa Martinez MANUAL DIFF REQ NO Normal [facility] Comment on above: Performed By: #### B LUMBER PRESS OPERATOR, BMP #### [facility] [address] [place] [address] Dr. Lisa Martinez MCH (RBC) [Entitic mass] 29.9 pg Normal 26.7-34.0 [facility] Comment on above: Performed By: #### B LUMBER PRESS OPERATOR, BMP #### [facility] [address] [place] [address] Dr. Lisa Martinez MCHC (RBC) [Mass/Vol] 30.8 g/dL Normal 29.9-35.2 [facility] Comment on above: Performed By: #### B LUMBER PRESS OPERATOR, BMP #### [facility] [address] [place] [address] Dr. Lisa Martinez MCV (RBC) [Entitic vol] 97.0 fL Normal 81.0-99.0 [facility] Comment on above: Performed By: #### B LUMBER PRESS OPERATOR, BMP #### [facility] [address] [place] [address] Dr. Lisa Martinez MONO # 0.8 103/ul Normal 0.3-0.8 [facility] Comment on above: Performed By: #### B LUMBER PRESS OPERATOR, BMP #### [facility] [address] [place] [address] Dr. Lsia Martinez Monocytes/100 WBC (Bld) 11.9 % Normal 1.7-12.0 [facility] Comment on above: Performed By: #### B LUMBER PRESS OPERATOR, BMP #### [facility] [address] [place] [address] Dr. Lisa Martinez NEUT # 4.4 103/ul Normal 1.4-6.5 [facility] Comment on above: Performed By: #### B LUMBER PRESS OPERATOR, BMP #### [facility] [address] [place] [address] Dr. Lisa Martniez Neutrophils/100 WBC (Bld) 69.7 % Normal 43.0-75.0 [facility] Comment on above: Performed By: #### B LUMBER PRESS OPERATOR, BMP #### [facility] [address] [place] [address] Dr. Lisa Martinez Platelet mean volume (Bld) [Entitic vol] 10.3 fL Normal 9.5-13.5 [facility] Comment on above: Performed By: #### B LUMBER PRESS OPERATOR, BMP #### [facility] [address] [place] [address] Dr. Lisa Martinez PLT 223 103/ul Normal 150-450 [facility] Comment on above: Performed By: #### B LUMBER PRESS OPERATOR, BMP #### [facility] [address] [address] [address] Lisa Martinez RBC 3.28 106/ul Critically low 4.20-5.40 [facility] Comment on above: Performed By: #### B LUMBER PRESS OPERATOR, BMP #### [facility] [address] [address] [address] Lisa Martinez WBC 6.3 103/ul Normal 4.0-11.0 [facility] Comment on above: Performed By: #### B LUMBER PRESS OPERATOR, BMP #### [facility] [address] [address] [address] Lisa Martinez DIGOXINon 10-08-2022 DIG 1.6 ng/mL Normal 0.9-2.0 [facility] Comment on above: Performed By: #### D IG ####[facility] [address] [place] [address]Dr. Lisa Martinez POINT OF CARE GLUCOSEon Glucose [Mass/Vol] 226 mg/dL Critically high 74-106 [facility] Comment on above: Performed By: #### P OCGLUC ####[facility] [address] [place] [address]Dr. Lisa Martinez Glucose [Mass/Vol] 107 mg/dL Critically high 74-106 [facility] Comment on above: Performed By: #### B LDCX2 #### [facility] [address] [address] [address] Lisa Martinez PROF CHEM 8 (BAS METB)on Anion gap [Moles/Vol] 11.7 mmol/L Normal [facility] Comment on above: Performed By: #### B LUMBER PRESS OPERATOR, BMP #### [facility] [address] [place] [address] Dr. Lisa Martinez Calcium [Mass/Vol] 9.2 mg/dL Normal 8.5-10.1 [facility] Comment on above: Performed By: #### B LUMBER PRESS OPERATOR, BMP #### [facility] [address] [place] [address] Dr. Lisa Martinez Chloride [Moles/Vol] 102 mmol/L Normal 98-107 [facility] Comment on above: Performed By: #### B LUMBER PRESS OPERATOR, BMP #### [facility] [address] [address] [address] Lisa Martinez CO2 [Moles/Vol] 29.3 mmol/L Normal 21.0-32.0 [facility] Comment on above: Performed By: #### B LUMBER PRESS OPERATOR, BMP #### [facility] [address] [address] [address] Lisa Martinez Creatinine [Mass/Vol] 1.27 mg/dL Critically high 0.55-1.02 [facility] Comment on above: Performed By: #### B LUMBER PRESS OPERATOR, BMP #### [facility] [address] [address] [address] Lisa Martinez EGFR-AF CROATIAN 49 mL/min/1.73m2 Critically low >=60 [facility] Comment on above: Performed By: #### B LUMBER PRESS OPERATOR, BMP #### [facility] [address] [address] [address] Lisa Martinez EGFR-NON AF CROATIAN 40 mL/min/1.73m2 Critically low >=60 [facility] Comment on above: Performed By: #### B LUMBER PRESS OPERATOR, BMP #### [facility] [address] [address] [address] Lisa Martinez Glucose [Mass/Vol] 98 mg/dL Normal 74-106 [facility] Comment on above: Performed By: #### B LUMBER PRESS OPERATOR, BMP #### [facility] [address] [address] [address] Lisa Martinez Potassium [Moles/Vol] 4.0 mmol/L Normal 3.5-5.1 [facility] Comment on above: Performed By: #### B LUMBER PRESS OPERATOR, BMP #### [facility] [address] [address] [address] Lisa Martinez Sodium [Moles/Vol] 139 mmol/L Normal 136-145 [facility] Comment on above: Performed By: #### B LUMBER PRESS OPERATOR, BMP #### [facility] [address] [address] [address] Lisa Martinez Urea nitrogen [Mass/Vol] 26.0 mg/dL Critically high 7.0-18.0 [facility] Comment on above: Performed By: #### B LUMBER PRESS OPERATOR, BMP #### [facility] [address] [place] [address] Dr. Lisa Martinez Urea nitrogen/Creatinine [Mass ratio] 20.5 mg/mg Normal [facility] Comment on above: Performed By: #### B LUMBER PRESS OPERATOR, BMP #### [facility] [address] [place] [address] Dr. Lisa Martinez BNPon 10-07-2022 Natriuretic peptide B (Bld) [Mass/Vol] 6039.0 pg/mL Critically high <=1,800.0 [facility] Comment on above: Performed By: #### B LUMBER PRESS OPERATOR ####[facility] [address] [place] [address]Dr. Lisa Martinez CBC AUTO DIFFon 10-07-2022 BASO # 0.1 103/ul Normal 0.0-0.1 [facility] Comment on above: Performed By: #### K U #### [facility] [address] [place] [address] Dr. Lisa Martinez Basophils/100 WBC (Bld) 0.7 % Normal 0.2-2.0 [facility] Comment on above: Performed By: #### K U #### [facility] [address] [place] [address] Dr. Lisa Martinez EO # 0.3 103/ul Normal 0.0-0.7 [facility] Comment on above: Performed By: #### K U #### [facility] [address] [place] [address] Dr. Lisa Martinez Eosinophils/100 WBC (Bld) 4.0 % Normal 0.9-7.0 [facility] Comment on above: Performed By: #### K U #### [facility] [address] [place] [address] Dr. Lisa Martinez Erythrocyte distribution width (RBC) [Ratio] 15.6 % Critically high 11.0-15.0 [facility] Comment on above: Performed By: #### K U #### [facility] [address] [place] [address] Dr. Lisa Martinez Hematocrit (Bld) [Volume fraction] 34.0 % Critically low 36.0-48.0 [facility] Comment on above: Performed By: #### K U #### [facility] [address] [place] [address] Dr. Lisa Martinez Hemoglobin (Bld) [Mass/Vol] 10.4 g/dL Critically low 12.0-16.0 [facility] Comment on above: Performed By: #### K U #### [facility] [address] [address] [address] Lisa Martinez IG # 0.02 10e3/ul Normal 0.00-0.03 [facility] Comment on above: Performed By: #### K U #### [facility] [address] [place] [address] Dr. Lisa Martinez IG % 0.3 % Normal 0.0-0.5 [facility] Comment on above: Performed By: #### K U #### [facility] [address] [place] [address] Dr. Lisa Martinez LYMPH # 1.0 103/ul Critically low 1.2-3.8 [facility] Comment on above: Performed By: #### K U #### [facility] [address] [place] [address] Dr. Lisa Martinez Lymphocytes/100 WBC (Bld) 14.9 % Critically low 20.5-60.0 [facility] Comment on above: Performed By: #### K U #### [facility] [address] [place] [address] Dr. Lisa Martinez MANUAL DIFF REQ NO Normal [facility] Comment on above: Performed By: #### K U #### [facility] [address] [place] [address] Dr. Lisa Martinez MCH (RBC) [Entitic mass] 29.8 pg Normal 26.7-34.0 [facility] Comment on above: Performed By: #### K U #### [facility] [address] [place] [address] Dr. Lisa Martinez MCHC (RBC) [Mass/Vol] 30.6 g/dL Normal 29.9-35.2 [facility] Comment on above: Performed By: #### K U #### [facility] [address] [address] [address] Lisa Martinez MCV (RBC) [Entitic vol] 97.4 fL Normal 81.0-99.0 [facility] Comment on above: Performed By: #### K U #### [facility] [address] [address] [address] Lisa Martinez MONO # 0.6 103/ul Normal 0.3-0.8 [facility] Comment on above: Performed By: #### K U #### [facility] [address] [place] [address] Dr. Lisa Martinez Monocytes/100 WBC (Bld) 8.8 % Normal 1.7-12.0 [facility] Comment on above: Performed By: #### K U #### [facility] [address] [address] [address] Lisa Martinez NEUT # 4.9 103/ul Normal 1.4-6.5 [facility] Comment on above: Performed By: #### K U #### [facility] [address] [place] [address] Dr. Lisa Martinez Neutrophils/100 WBC (Bld) 71.3 % Normal 43.0-75.0 [facility] Comment on above: Performed By: #### K U #### [facility] [address] [address] [address] Lisa Martinez Platelet mean volume (Bld) [Entitic vol] 10.5 fL Normal 9.5-13.5 [facility] Comment on above: Performed By: #### K U #### [facility] [address] [place] [address] Dr. Lisa Martinez PLT 251 103/ul Normal 150-450 [facility] Comment on above: Performed By: #### K U #### [facility] [address] [place] [address] Dr. Lisa Martinez RBC 3.49 106/ul Critically low 4.20-5.40 [facility] Comment on above: Performed By: #### K U #### [facility] [address] [place] [address] Dr. Lsia Martinez WBC 6.8 103/ul Normal 4.0-11.0 [facility] Comment on above: Performed By: #### K U #### [facility] [address] [place] [address] Dr. Lisa Martinez DIGOXINon 10-07-2022 DIG 1.7 ng/mL Normal 0.9-2.0 [facility] Comment on above: Performed By: #### U RCX #### [facility] [address] [place] [address] Dr. Lisa Martinez POINT OF CARE GLUCOSEon Glucose [Mass/Vol] 185 mg/dL Critically high 74-106 [facility] Comment on above: Performed By: #### B LUMBER PRESS OPERATOR, BMP #### [facility] [address] [place] [address] Dr. Lisa Martinez Glucose [Mass/Vol] 120 mg/dL Critically high 74-106 [facility] Comment on above: Performed By: #### C VDTBH #### [facility] [address] [place] [address] Dr. Lisa Martinez Glucose [Mass/Vol] 218 mg/dL Critically high 74-106 [facility] Comment on above: Performed By: #### B LDCX2 #### [facility] [address] [place] [address] Dr. Lisa Martinez PROF CHEM 8 (BAS METB)on Anion gap [Moles/Vol] 12.3 mmol/L Normal [facility] Comment on above: Performed By: #### B LUMBER PRESS OPERATOR, BMP #### [facility] [address] [place] [address] Dr. Lisa Martinez Calcium [Mass/Vol] 9.3 mg/dL Normal 8.5-10.1 [facility] Comment on above: Performed By: #### B LUMBER PRESS OPERATOR, BMP #### [facility] [address] [address] [address] Lisa Martinez Chloride [Moles/Vol] 102 mmol/L Normal 98-107 [facility] Comment on above: Performed By: #### B LUMBER PRESS OPERATOR, BMP #### [facility] [address] [place] [address] Dr. Lisa Martinez CO2 [Moles/Vol] 30.8 mmol/L Normal 21.0-32.0 [facility] Comment on above: Performed By: #### B LUMBER PRESS OPERATOR, BMP #### [facility] [address] [place] [address] Dr. Lisa Martinez Creatinine [Mass/Vol] 1.45 mg/dL Critically high 0.55-1.02 [facility] Comment on above: Performed By: #### B LUMBER PRESS OPERATOR, BMP #### [facility] [address] [place] [address] Dr. Lisa Martinez EGFR-AF CROATIAN 42 mL/min/1.73m2 Critically low >=60 [facility] Comment on above: Performed By: #### B LUMBER PRESS OPERATOR, BMP #### [facility] [address] [place] [address] Dr. Lisa Martinez EGFR-NON AF CROATIAN 34 mL/min/1.73m2 Critically low >=60 [facility] Comment on above: Performed By: #### B LUMBER PRESS OPERATOR, BMP #### [facility] [address] [place] [address] Dr. Lisa Martinez Glucose [Mass/Vol] 103 mg/dL Normal 74-106 [facility] Comment on above: Performed By: #### B LUMBER PRESS OPERATOR, BMP #### [facility] [address] [place] [address] Dr. Lisa Martinez Potassium [Moles/Vol] 4.1 mmol/L Normal 3.5-5.1 [facility] Comment on above: Performed By: #### B LUMBER PRESS OPERATOR, BMP #### [facility] [address] [place] [address] Dr. Lisa Martinez Sodium [Moles/Vol] 141 mmol/L Normal 136-145 [facility] Comment on above: Performed By: #### B LUMBER PRESS OPERATOR, BMP #### [facility] [address] [address] [address] Lisa Martinez Urea nitrogen [Mass/Vol] 26.0 mg/dL Critically high 7.0-18.0 [facility] Comment on above: Performed By: #### B LUMBER PRESS OPERATOR, BMP #### [facility] [address] [address] [address] Lisa Martinez Urea nitrogen/Creatinine [Mass ratio] 17.9 mg/mg Normal [facility] Comment on above: Performed By: #### B LUMBER PRESS OPERATOR, BMP #### [facility] [address] [address] [address] Lisa Martinez BNPon 10-06-2022 Natriuretic peptide B (Bld) [Mass/Vol] 6211.0 pg/mL Critically high <=1,800.0 [facility] Comment on above: Performed By: #### C MADM, LIVER, CMP, BNP ####[facility] [address] [place] [address]Dr. Lisa Martinez CARDIAC DONY ADMITon 023 CK [Catalytic activity/Vol] 50 U/L Normal 26-192 [facility] Comment on above: Performed By: #### C MADM, LIVER, CMP, BNP ####[facility] [address] [place] [address]Dr. Lisa Martinez CK.MB [Mass/Vol] 0.89 ng/mL Normal <=3.60 [facility] Comment on above: Performed By: #### C MADM, LIVER, CMP, BNP ####[facility] [address] [place] [address]Dr. Lisa Martinez HSTROP 19.1 pg/mL Normal 4.0-51.3 [facility] Comment on above: Result Comment: CUT- OFF POINTS HAVE BEEN ESTABLISHED BASED ON THE FOURTH UNIVERSAL DEFINITIONS OF MYOCARDIAL INFARCTION. THE UPPER REFERENCE LIMIT (URL) OF TROPONIN, DEFINED THE 99TH PERCENTILE OF cTnI DISTRIBUTION IN A REFERENCE POPULATION, HAS BEEN CONFIRMED THE DECISION THRESHOLD FOR MO DIAGNOSIS. Performed By: #### C MADM, LIVER, CMP, BNP ####[facility] [address] [place] [address]Dr. Lisa Martinez LISSY 56 ng/mL Normal 9-82 [facility] Comment on above: Performed By: #### C MADM, LIVER, CMP, BNP ####[facility] [address] [place] [id number]. Lisa Martinez CBC AUTO DIFFon 10-06-2022 BASO # 0.1 103/ul Normal 0.0-0.1 [facility] Comment on above: Performed By: #### C BC #### [facility] [address] [address] [address] Lisa Martinez Basophils/100 WBC (Bld) 0.7 % Normal 0.2-2.0 [facility] Comment on above: Performed By: #### C BC #### [facility] [address] [address] [address] Lisa Martinez EO # 0.2 103/ul Normal 0.0-0.7 [facility] Comment on above: Performed By: #### C BC #### [facility] [address] [address] [address] Lisa Martinez Eosinophils/100 WBC (Bld) 2.0 % Normal 0.9-7.0 [facility] Comment on above: Performed By: #### C BC #### [facility] [address] [address] [address] Lisa Martinez Erythrocyte distribution width (RBC) [Ratio] 15.7 % Critically high 11.0-15.0 [facility] Comment on above: Performed By: #### C BC #### [facility] [address] [address] [address] Lisa Martinez Hematocrit (Bld) [Volume fraction] 32.4 % Critically low 36.0-48.0 [facility] Comment on above: Performed By: #### C BC #### [facility] [address] [address] [address] Lisa Martinez Hemoglobin (Bld) [Mass/Vol] 10.0 g/dL Critically low 12.0-16.0 [facility] Comment on above: Performed By: #### C BC #### [facility] [address] [place] [address] Dr. Lisa Martinez IG # 0.02 10e3/ul Normal 0.00-0.03 [facility] Comment on above: Performed By: #### C BC #### [facility] [address] [place] [address] Dr. Lisa Martinez IG % 0.3 % Normal 0.0-0.5 [facility] Comment on above: Performed By: #### C BC #### [facility] [address] [place] [address] Dr. Lisa Martinez LYMPH # 0.7 103/ul Critically low 1.2-3.8 [facility] Comment on above: Performed By: #### C BC #### [facility] [address] [place] [address] Dr. Lisa Martinez Lymphocytes/100 WBC (Bld) 9.2 % Critically low 20.5-60.0 [facility] Comment on above: Performed By: #### C BC #### [facility] [address] [place] [address] Dr. Lisa Martinez MANUAL DIFF REQ NO Normal [facility] Comment on above: Performed By: #### C BC #### [facility] [address] [place] [address] Dr. Lisa Martinez MCH (RBC) [Entitic mass] 29.8 pg Normal 26.7-34.0 [facility] Comment on above: Performed By: #### C BC #### [facility] [address] [place] [address] Dr. Lisa Martinez MCHC (RBC) [Mass/Vol] 30.9 g/dL Normal 29.9-35.2 [facility] Comment on above: Performed By: #### C BC #### [facility] [address] [place] [address] Dr. Lisa Martinez MCV (RBC) [Entitic vol] 96.4 fL Normal 81.0-99.0 [facility] Comment on above: Performed By: #### C BC #### [facility] [address] [place] [address] Dr. Lisa Martinez MONO # 0.5 103/ul Normal 0.3-0.8 [facility] Comment on above: Performed By: #### C BC #### [facility] [address] [address] [address] Lisa Martinez Monocytes/100 WBC (Bld) 6.4 % Normal 1.7-12.0 [facility] Comment on above: Performed By: #### C BC #### [facility] [address] [address] [address] Lisa Martinez NEUT # 6.2 103/ul Normal 1.4-6.5 [facility] Comment on above: Performed By: #### C BC #### [facility] [address] [place] [address] Dr. Lisa Martinez Neutrophils/100 WBC (Bld) 81.4 % Critically high 43.0-75.0 [facility] Comment on above: Performed By: #### C BC #### [facility] [address] [place] [address] Dr. Lisa Martinez Platelet mean volume (Bld) [Entitic vol] 10.2 fL Normal 9.5-13.5 [facility] Comment on above: Performed By: #### C BC #### [facility] [address] [place] [address] Dr. Lisa Martinez PLT 228 103/ul Normal 150-450 [facility] Comment on above: Performed By: #### C BC #### [facility] [address] [place] [address] Dr. Lisa Martinez RBC 3.36 106/ul Critically low 4.20-5.[address] [facility] Comment on above: Performed By: #### C BC #### [facility] [address] [place] [address] Dr. Lisa Martinez WBC 7.6 103/ul Normal 4.0-11.0 [facility] Comment on above: Performed By: #### C BC #### [facility] [address] [place] [address] Dr. Lisa Martinez CTA CHEST WO W CONon 03-31-2 023 CTA CHEST WO W CON EXAMINATION: [...] JENNY MARQUEZ Date: 2022-10-06 14:18 Normal [facility] Covid-19 PCR (CVDTB)on 09-08 SARS-CoV-2 (COVID-19) RNA RACIEL+probe Ql (Unsp spec) Not detected Normal NOT DETECTED [facility] Comment on above: Result Comment: When diagnostic [...] for this test is supported by the Refrigerating Engineer Head of Health and Human Service's declaration that [...] be used). Performed By: #### C VDTBH ####[facility] [address] [address]Dr. Lisa Martinez DIGOXINon 10-06-2022 DIG 2.3 ng/mL Critically high 0.9-2.0 [facility] Comment on above: Performed By: #### C BC #### [facility] [address] [address] [address] Lisa Martinez LIVER PROFILEon 10-06-2022 BILI, CONJUGATED 0.4 mg/dL Critically high 0.0-0.2 [facility] Comment on above: Performed By: #### C MADM, LIVER, CMP, BNP ####[facility] [id number] [address]Dr. Lisa Martinez POINT OF CARE GLUCOSEon 09-08 Glucose [Mass/Vol] 154 mg/dL Critically high 74-106 [facility] Comment on above: Performed By: #### B LUMBER PRESS OPERATOR, BMP #### [facility] [address] [address] [address] Lisa Martinez Glucose [Mass/Vol] 77 mg/dL Normal 74-106 [facility] Comment on above: Performed By: #### B LUMBER PRESS OPERATOR, BMP #### [facility] [address] [address] [address] Lisa Martinez PROF 14(COMP METB)on 023 Albumin [Mass/Vol] 3.5 g/dL Normal 3.4-5.0 [facility] Comment on above: Performed By: #### C MADM, LIVER, CMP, BNP ####[facility] [address] [address]Dr. Lisa Martinez Albumin/Globulin [Mass ratio] 0.8 {ratio} Normal [facility] Comment on above: Performed By: #### C MADM, LIVER, CMP, BNP ####[facility] [address] [address]Dr. Lisa Martinez ALP [Catalytic activity/Vol] 94 U/L Normal 46-116 [facility] Comment on above: Performed By: #### C MADM, LIVER, CMP, BNP ####[facility] [address] [address]Dr. Lisa Martinez ALT [Catalytic activity/Vol] 13 U/L Critically low 14-59 [facility] Comment on above: Performed By: #### C MADM, LIVER, CMP, BNP ####[facility] [address] [address]Dr. Lisa Martinez Anion gap [Moles/Vol] 11.1 mmol/L Normal [facility] Comment on above: Performed By: #### C MADM, LIVER, CMP, BNP ####[facility] [address] [address]Dr. Lisa Martinez AST [Catalytic activity/Vol] 15 U/L Normal 15-37 [facility] Comment on above: Performed By: #### C MADM, LIVER, CMP, BNP ####[facility] [address] [address]Dr. Lisa Martinez Bilirubin [Mass/Vol] 1.6 mg/dL Critically high 0.2-1.0 [facility] Comment on above: Performed By: #### C MADM, LIVER, CMP, BNP ####[facility] [address] [address]Dr. Lisa Martinez Calcium [Mass/Vol] 9.2 mg/dL Normal 8.5-10.1 [facility] Comment on above: Performed By: #### C MADM, LIVER, CMP, BNP ####[facility] [address] [address]Dr. Lisa Martinez Chloride [Moles/Vol] 106 mmol/L Normal 98-107 [facility] Comment on above: Performed By: #### C MADM, LIVER, CMP, BNP ####[facility] [address] [address]Dr. Lisa Martinez CO2 [Moles/Vol] 29.0 mmol/L Normal 21.0-32.0 [facility] Comment on above: Performed By: #### C MADM, LIVER, CMP, BNP ####[facility] [address] [address]Dr. Lisa Martinez Creatinine [Mass/Vol] 1.43 mg/dL Critically high 0.55-1.02 [facility] Comment on above: Performed By: #### C MADM, LIVER, CMP, BNP ####[facility] [address] [address]Dr. Lisa Martinez EGFR-AF CROATIAN 42 mL/min/1.73m2 Critically low >=60 [facility] Comment on above: Performed By: #### C MADM, LIVER, CMP, BNP ####[facility] [address] [address]Dr. Lisa Martinez EGFR-NON AF CROATIAN 35 mL/min/1.73m2 Critically low >=60 [facility] Comment on above: Performed By: #### C MADM, LIVER, CMP, BNP ####[facility] [address] [address]Dr. Lisa Martinez Globulin (S) [Mass/Vol] 4.2 g/dL Normal [facility] Comment on above: Performed By: #### C MADM, LIVER, CMP, BNP ####[facility] [address] [address]Dr. Lisa Martinez Glucose [Mass/Vol] 114 mg/dL Critically high 74-106 [facility] Comment on above: Performed By: #### C MADM, LIVER, CMP, BNP ####[facility] [address] [address]Dr. Lisa Martinez Potassium [Moles/Vol] 4.1 mmol/L Normal 3.5-5.1 [facility] Comment on above: Performed By: #### C MADM, LIVER, CMP, BNP ####[facility] [address] [address]Dr. Lisa Martinez Protein [Mass/Vol] 7.7 g/dL Normal 6.4-8.2 [facility] [place] [facility] Comment on above: Performed By: #### C MADM, LIVER, CMP, BNP ####[facility] [address] [address]Dr. Lisa Martinez Sodium [Moles/Vol] 142 mmol/L Normal 136-145 [facility] [place] [facility] Comment on above: Performed By: #### C MADM, LIVER, CMP, BNP ####[facility] [address] [address]Dr. Lisa Martinez Urea nitrogen [Mass/Vol] 26.0 mg/dL Critically high 7.0-18.0 [facility] Comment on above: Performed By: #### C MADM, LIVER, CMP, BNP ####[facility] [address] [address]Dr. Lisa Martinez Urea nitrogen/Creatinine [Mass ratio] 18.2 mg/mg Normal [facility] Comment on above: Performed By: #### C MADM, LIVER, CMP, BNP ####[facility] [address] [address]Dr. Lisa Martinez PROTIMEon 10-06-2022 INR Coag (PPP) [Relative time] 1.09 {INR} Normal [facility] Comment on above: Performed By: #### B LUMBER PRESS OPERATOR, BMP #### [facility] [address] [address] [address] Lisa Martinez INR GUIDELINES SEE BELOW Normal [facility] Comment on above: Result Comment: ANTONY RED INR: 2.0 - 3.0 CONDITIONS NOT LISTED BELOW 2.5 - 3.5 FOR PROSTHETIC HEART VALVE REPLACEMENT 2.5 - 3.5 RECURRENT THROMBOSIS Performed By: #### B LUMBER PRESS OPERATOR, BMP #### [facility] [address] [place], [place] [address] Dr. Lisa Martinez PT Coag (PPP) [Time] 11.5 s Normal 9.0-11.6 [facility] Comment on above: Performed By: #### B LUMBER PRESS OPERATOR, BMP #### [facility] [address] [place], [place] [address] Dr. Lisa Martinez PTTon 10-06-2022 aPTT Coag (Bld) [Time] 26.5 s Normal 22.3-36.2 [facility] Comment on above: Performed By: #### B LUMBER PRESS OPERATOR, BMP #### [facility] [address] [address] [address] Lisa Martinez ECHOCARDIO M/2D COMPLETEon 1 08-27-2021 ECHOCARDIO M/2D COMPLETE Patient: JENNI QUINONES Exam Date: 06/26/2022 : 1940 Gender:F Ordering : FARZANEH ARNDT Admission #: [id number] Family : Order #: [id number] CLICK HERE TO VIEW EXAM ECHOCARDIOGRAM REPORT [...] 3.08 cm Aortic Valve AoV Area (Peak Bradley): 0.79 cm2, 0.83 cm2, 0.76 cm2 AoV Area (VTI): 0.81 cm2, 0.87 cm2, 0.77 cm2 Deceleration [place]: 0.72 m/s2 Pressure Half-Time: 1.18 s Peak [...] 75.36 ml, 75.36 ml Dictated by: Josefina Nova M.D. on 06/29/2022 at 15:21 Approved by: Josefina Nova M.D. on 06/29/2022 at 15:[address] [facility] CBC AUTO DIFFon 05-02-2022 BASO # 0.0 103/ul Normal 0.0-0.1 [facility] Comment on above: Performed By: #### C BC #### [facility] [address] [place] [address] Dr. Lisa Martinez Basophils/100 WBC (Bld) 0.4 % Normal 0.2-2.0 [facility] Comment on above: Performed By: #### C BC #### [facility] [address] [place] [address] Dr. Lisa Martinez EO # 0.1 103/ul Normal 0.0-0.7 [facility] Comment on above: Performed By: #### C BC #### [facility] [address] [place] [address] Dr. Lisa Martinez Eosinophils/100 WBC (Bld) 1.8 % Normal 0.9-7.0 [facility] Comment on above: Performed By: #### C BC #### [facility] [address] [place] [address] Dr. Lisa Martinez Erythrocyte distribution width (RBC) [Ratio] 13.3 % Normal 11.0-15.0 [facility] Comment on above: Performed By: #### C BC #### [facility] [address] [address] [address] Lisa Martinez Hematocrit (Bld) [Volume fraction] 38.4 % Normal 36.0-48.0 [facility] Comment on above: Performed By: #### C BC #### [facility] [address] [place] [address] Dr. Lisa Martinez Hemoglobin (Bld) [Mass/Vol] 12.0 g/dL Normal 12.0-16.0 [facility] Comment on above: Performed By: #### C BC #### [facility] [address] [place] [address] Dr. Lisa Martinez IG # 0.09 10e3/ul Critically high 0.00-0.03 [facility] Comment on above: Performed By: #### C BC #### [facility] [address] [place] [address] Dr. Lisa Martinez IG % 1.6 % Critically high 0.0-0.5 [facility] Comment on above: Performed By: #### C BC #### [facility] [address] [place] [address] Dr. Lisa Martinez LYMPH # 0.9 103/ul Critically low 1.2-3.8 [facility] Comment on above: Performed By: #### C BC #### [facility] [address] [place] [address] Dr. Lisa Martinez Lymphocytes/100 WBC (Bld) 16.0 % Critically low 20.5-60.0 [facility] Comment on above: Performed By: #### C BC #### [facility] [address] [place] [address] Dr. Lisa Martinez MANUAL DIFF REQ NO Normal [facility] Comment on above: Performed By: #### C BC #### [facility] [address] [place] [address] Dr. Lisa Martinez MCH (RBC) [Entitic mass] 30.2 pg Normal 26.7-34.0 [facility] Comment on above: Performed By: #### C BC #### [facility] [address] [place] [address] Dr. Lisa Martinez MCHC (RBC) [Mass/Vol] 31.3 g/dL Normal 29.9-35.2 [facility] Comment on above: Performed By: #### C BC #### [facility] [address] [place] [address] Dr. Lisa Martinez MCV (RBC) [Entitic vol] 96.7 fL Normal 81.0-99.0 [facility] Comment on above: Performed By: #### C BC #### [facility] [address] [place] [address] Dr. Lisa Martinez MONO # 0.6 103/ul Normal 0.3-0.8 [facility] Comment on above: Performed By: #### C BC #### [facility] [address] [place] [address] Dr. Lisa Martinez Monocytes/100 WBC (Bld) 11.3 % Normal 1.7-12.0 [facility] Comment on above: Performed By: #### C BC #### [facility] [address] [place] [address] Dr. Lisa Martinez NEUT # 3.9 103/ul Normal 1.4-6.5 [facility] Comment on above: Performed By: #### C BC #### [facility] [address] [place] [address] Dr. Lisa Martinez Neutrophils/100 WBC (Bld) 68.9 % Normal 43.0-75.0 [facility] Comment on above: Performed By: #### C BC #### [facility] [address] [place] [address] Dr. Lisa Martinez Platelet mean volume (Bld) [Entitic vol] 10.7 fL Normal 9.5-13.5 [facility] Comment on above: Performed By: #### C BC #### [facility] [address] [place] [address] Dr. Lisa Martinez PLT 164 103/ul Normal 150-450 [facility] Comment on above: Performed By: #### C BC #### [facility] [address] [place] [address] Dr. Lisa Martinez RBC 3.97 106/ul Critically low 4.20-5.40 [facility] Comment on above: Performed By: #### C BC #### [facility] [address] [place] [address] Dr. Lisa Martinez WBC 5.6 103/ul Normal 4.0-11.0 [facility] Comment on above: Performed By: #### C BC #### [facility] [address] [place] [address] Dr. Lisa Martinez PROF 14(COMP METB)on 022 Albumin [Mass/Vol] 2.8 g/dL Critically low 3.4-5.0 [facility] Comment on above: Performed By: #### U RCX #### [facility] [address] [place] [address] Dr. Lisa Martinez Albumin/Globulin [Mass ratio] 0.7 {ratio} Normal [facility] Comment on above: Performed By: #### U RCX #### [facility] [address] [place] [address] Dr. Lisa Martinez ALP [Catalytic activity/Vol] 74 U/L Normal 46-116 [facility] Comment on above: Performed By: #### U RCX #### [facility] [address] [place] [address] Dr. Lisa Martinez ALT [Catalytic activity/Vol] 11 U/L Critically low 14-59 [facility] Comment on above: Performed By: #### U RCX #### [facility] [address] [place] [address] Dr. Lisa Martinez Anion gap [Moles/Vol] 13.5 mmol/L Normal [facility] Comment on above: Performed By: #### U RCX #### [facility] [address] [place] [address] Dr. Lisa Martinez AST [Catalytic activity/Vol] 14 U/L Critically low 15-37 [facility] Comment on above: Performed By: #### U RCX #### [facility] [address] [place] [address] Dr. Lisa Martinez Bilirubin [Mass/Vol] 0.5 mg/dL Normal 0.2-1.0 [facility] Comment on above: Performed By: #### U RCX #### [facility] [address] [place] [address] Dr. Lisa Martinez Calcium [Mass/Vol] 8.5 mg/dL Normal 8.5-10.1 [facility] Comment on above: Performed By: #### U RCX #### [facility] [address] [address] [address] Lisa Martinez Chloride [Moles/Vol] 103 mmol/L Normal 98-107 [facility] Comment on above: Performed By: #### U RCX #### [facility] [address] [place] [address] Dr. Lisa Martinez CO2 [Moles/Vol] 24.5 mmol/L Normal 21.0-32.0 [facility] Comment on above: Performed By: #### U RCX #### [facility] [address] [place] [address] Dr. Lisa Martinez Creatinine [Mass/Vol] 1.43 mg/dL Critically high 0.55-1.02 [facility] Comment on above: Performed By: #### U RCX #### [facility] [address] [place] [address] Dr. Lisa Martinez EGFR-AF CROATIAN 42 mL/min/1.73m2 Critically low >=60 [facility] Comment on above: Performed By: #### U RCX #### [facility] [address] [place] [address] Dr. Lisa Martinez EGFR-NON AF CROATIAN 35 mL/min/1.73m2 Critically low >=60 [facility] Comment on above: Performed By: #### U RCX #### [facility] [address] [place] [address] Dr. Lisa Martinez Globulin (S) [Mass/Vol] 4.3 g/dL Normal [facility] Comment on above: Performed By: #### U RCX #### [facility] [address] [place] [address] Dr. Lisa Martinez Glucose [Mass/Vol] 142 mg/dL Critically high 74-106 [facility] Comment on above: Performed By: #### U RCX #### [facility] [address] [place] [address] Dr. Lisa Martinez Potassium [Moles/Vol] 4.0 mmol/L Normal 3.5-5.1 [facility] Comment on above: Performed By: #### U RCX #### [facility] [address] [place] [address] Dr. Lisa Martinez Protein [Mass/Vol] 7.1 g/dL Normal 6.4-8.2 [facility] Comment on above: Performed By: #### U RCX #### [facility] [address] [place] [address] Dr. Lisa Martinez Sodium [Moles/Vol] 137 mmol/L Normal 136-145 [facility] Comment on above: Performed By: #### U RCX #### [facility] [address] [place] [address] Dr. Lisa Martinez Urea nitrogen [Mass/Vol] 31.0 mg/dL Critically high 7.0-18.0 [facility] Comment on above: Performed By: #### U RCX #### [facility] [address] [place] [address] Dr. Lisa Martinez Urea nitrogen/Creatinine [Mass ratio] 21.7 mg/mg Normal [facility] Comment on above: Performed By: #### U RCX #### [facility] [address] [place] [address] Dr. Lisa Martinez CBC AUTO DIFFon 05-01-2022 BASO # 0.0 103/ul Normal 0.0-0.1 [facility] Comment on above: Performed By: #### U RCX #### [facility] [address] [place] [address] Dr. Lisa Martinez Basophils/100 WBC (Bld) 0.3 % Normal 0.2-2.0 [facility] Comment on above: Performed By: #### U RCX #### [facility] [address] [place] [address] Dr. Lisa Martinez EO # 0.1 103/ul Normal 0.0-0.7 [facility] Comment on above: Performed By: #### U RCX #### [facility] [address] [address] [address] Lisa Martinez Eosinophils/100 WBC (Bld) 0.9 % Normal 0.9-7.0 [facility] Comment on above: Performed By: #### U RCX #### [facility] [address] [address] [address] Lisa Martinez Erythrocyte distribution width (RBC) [Ratio] 13.4 % Normal 11.0-15.0 [facility] Comment on above: Performed By: #### U RCX #### [facility] [address] [place] [address] Dr. Lisa Martinez Hematocrit (Bld) [Volume fraction] 41.6 % Normal 36.0-48.0 [facility] Comment on above: Performed By: #### U RCX #### [facility] [address] [place] [address] Dr. Lisa Martinez Hemoglobin (Bld) [Mass/Vol] 12.8 g/dL Normal 12.0-16.0 [facility] Comment on above: Performed By: #### U RCX #### [facility] [address] [place] [address] Dr. Lisa Martinez IG # 0.16 10e3/ul Critically high 0.00-0.03 [facility] Comment on above: Performed By: #### U RCX #### [facility] [address] [place] [address] Dr. Lisa Martinez IG % 1.6 % Critically high 0.0-0.[address] [facility] Comment on above: Performed By: #### U RCX #### [facility] [address] [place] [address] Dr. Lisa Martinez LYMPH # 0.8 103/ul Critically low 1.2-3.8 [facility] Comment on above: Performed By: #### U RCX #### [facility] [address] [address] [address] Lisa Martinez Lymphocytes/100 WBC (Bld) 7.8 % Critically low 20.5-60.0 [facility] Comment on above: Performed By: #### U RCX #### [facility] [address] [place] [address] Dr. Lisa Martinez MANUAL DIFF REQ NO Normal [facility] Comment on above: Performed By: #### U RCX #### [facility] [address] [place] [address] Dr. Lisa Martinez MCH (RBC) [Entitic mass] 29.8 pg Normal 26.7-34.0 [facility] Comment on above: Performed By: #### U RCX #### [facility] [address] [place] [address] Dr. Lisa Martinez MCHC (RBC) [Mass/Vol] 30.8 g/dL Normal 29.9-35.2 [facility] Comment on above: Performed By: #### U RCX #### [facility] [address] [place] [address] Dr. Lisa Martinez MCV (RBC) [Entitic vol] 96.7 fL Normal 81.0-99.0 [facility] Comment on above: Performed By: #### U RCX #### [facility] [address] [place] [address] Dr. Lisa Martinez MONO # 0.8 103/ul Normal 0.3-0.8 [facility] Comment on above: Performed By: #### U RCX #### [facility] [address] [place] [address] Dr. Lisa Martinez Monocytes/100 WBC (Bld) 8.4 % Normal 1.7-12.0 [facility] Comment on above: Performed By: #### U RCX #### [facility] [address] [place] [address] Dr. Lisa Martinez NEUT # 7.9 103/ul Critically high 1.4-6.[address] [facility] Comment on above: Performed By: #### U RCX #### [facility] [address] [place] [address] Dr. Lisa Martinez Neutrophils/100 WBC (Bld) 81.0 % Critically high 43.0-75.0 [facility] Comment on above: Performed By: #### U RCX #### [facility] [address] [place] [address] Dr. Lisa Martinez Platelet mean volume (Bld) [Entitic vol] 10.6 fL Normal 9.5-13.5 [facility] Comment on above: Performed By: #### U RCX #### [facility] [address] [place] [address] Dr. Lisa Martinez PLT 211 103/ul Normal 150-450 [facility] Comment on above: Performed By: #### U RCX #### [facility] [address] [place] [address] Dr. Lisa Martinez RBC 4.30 106/ul Normal 4.20-5.40 [facility] Comment on above: Performed By: #### U RCX #### [facility] [address] [place] [address] Dr. Lisa Martinez WBC 9.8 103/ul Normal 4.0-11.0 [facility] Comment on above: Performed By: #### U RCX #### [facility] [address] [place] [place] [address] Dr. Lisa Martinez DIGOXINon 05-01-2022 DIG 0.7 ng/mL Critically low 0.9-2.0 [facility] Comment on above: Performed By: #### B LUMBER PRESS OPERATOR, BMP #### [facility] [address] [place] [address] Dr. Lisa Martinez GI PANEL (PCR)on 05-01-2022 Adenovirus F 40/41 Not detected Normal NOT DETECTED [facility] Comment on above: Performed By: #### B LDCX2 #### [facility] [address] [place] [address] Dr. Lisa Martinez Astrovirus Not detected Normal NOT DETECTED [facility] Comment on above: Performed By: #### B LDCX2 #### [facility] [address] [place] [address] Dr. Lisa Martinez C. Diff toxin A/B Not detected Normal NOT DETECTED [facility] Comment on above: Performed By: #### B LDCX2 #### [facility] [address] [place] [address] Dr. Lisa Martinez Campylobacter Not detected Normal NOT DETECTED [facility] Comment on above: Performed By: #### B LDCX2 #### [facility] [address] [place] [address] Dr. Lisa Martinez Cryptosporidium Not detected Normal NOT DETECTED [facility] Comment on above: Performed By: #### B LDCX2 #### [facility] [address] [place] [address] Dr. Lisa Martinez Cyclos. Cayetanensis Not detected Normal NOT DETECTED [facility] Comment on above: Performed By: #### B LDCX2 #### [facility] [address] [place] [address] Dr. Lisa Martinez E. Coli O157 Not Applicable Normal Not Applicable [facility] Comment on above: Performed By: #### B LDCX2 #### [facility] [address] [place] [address] Dr. Lisa Martinez E. histolytica Not detected Normal NOT DETECTED [facility] Comment on above: Performed By: #### B LDCX2 #### [facility] [address] [place] [address] Dr. Lisa Martinez EAEC Not detected Normal NOT DETECTED [facility] Comment on above: Performed By: #### B LDCX2 #### [facility] [address] [place] [address] Dr. Lisa Martinez EIEC Not detected Normal NOT DETECTED [facility] Comment on above: Performed By: #### B LDCX2 #### [facility] [address] [place] [address] Dr. Lisa Martinez EPEC Not detected Normal NOT DETECTED [facility] Comment on above: Performed By: #### B LDCX2 #### [facility] [address] [place] [address] Dr. Lisa Martinez ETEC Not detected Normal NOT DETECTED [facility] Comment on above: Performed By: #### B LDCX2 #### [facility] [address] [address] [address] Lisa Perrin Lamblia Not detected Normal NOT DETECTED [facility] Comment on above: Performed By: #### B LDCX2 #### [facility] [address] [address] [address] Lisa MALDONADO CONTROLS PASSED Normal [facility] Comment on above: Performed By: #### B LDCX2 #### [facility] [address] [address] [address] Lisa PEREZ HEADER GI PANEL BACTERIA Normal [facility] Comment on above: Performed By: #### B LDCX2 #### [facility] [address] [place] [address] Dr. Lisa HIRSCH ECOLI GI PANEL DIARRHEAGEN IC E.COLI / SHIGELLA Normal [facility] Comment on above: Performed By: #### B LDCX2 #### [facility] [address] [place] [address] Dr. Lisa HIRSCH INFO SEE BELOW Normal [facility] Comment on above: Result Comment: EAEC - Enteroaggregative E. Coli EPEC- Enteropathogenic E. Coli ETEC- Enterotoxigenic E. Coli lt/st STEC- Shigella-like toxin-producing E. Coli stx1/stx2 EIEC- Shigella/Enteroinvasive E. Coli Performed By: #### B LDCX2 #### [facility] [address] [place] [address] Dr. Lisa HIRSCH PARASITES GI PANEL PARASITES Normal [facility] Comment on above: Performed By: #### B LDCX2 #### [facility] [address] [address] [address] Lisa HIRSCH VIRUS GI PANEL VIRUSES Normal [facility] Comment on above: Performed By: #### B LDCX2 #### [facility] [address] [address] [address] Lisa Martinez Norovirus GI/GII Not detected Normal NOT DETECTED [facility] Comment on above: Performed By: #### B LDCX2 #### [facility] [address] [place] [address] Dr. Lisa Martinez P. Shigelloides Not detected Normal NOT DETECTED [facility] Comment on above: Performed By: #### B LDCX2 #### [facility] [address] [place] [address] Dr. Lisa Martinez Rotavirus A Not detected Normal NOT DETECTED [facility] Comment on above: Performed By: #### B LDCX2 #### [facility] [address] [place] [address] Dr. Lisa Martinez Salmonella Not detected Normal NOT DETECTED [facility] Comment on above: Performed By: #### B LDCX2 #### [facility] [address] [place] [address] Dr. Lisa Martinez Sapovirus Not detected Normal NOT DETECTED [facility] Comment on above: Performed By: #### B LDCX2 #### [facility] [address] [place] [address] Dr. Lisa Martinez STEC Not detected Normal NOT DETECTED [facility] Comment on above: Performed By: #### B LDCX2 #### [facility] [address] [place] [address] Dr. Lisa Martinez Vibrio Not detected Normal NOT DETECTED [facility] Comment on above: Performed By: #### B LDCX2 #### [facility] [address] [place] [address] Dr. Lisa Martinez Vibrio Cholera Not detected Normal NOT DETECTED [facility] Comment on above: Performed By: #### B LDCX2 #### [facility] [address] [place] [address] Dr. Lisa Martinez Y. Enterocolitica Not detected Normal NOT DETECTED [facility] Comment on above: Performed By: #### B LDCX2 #### [facility] [address] [place] [address] Dr. Lisa Martinez MAGNESIUMon 05-01-2022 Magnesium [Mass/Vol] 2.0 mg/dL Normal 1.8-2.4 [facility] Comment on above: Performed By: #### M G ####[facility] [address] [address]Dr. Lisa Martinez POINT OF CARE GLUCOSEon 04-09 Glucose [Mass/Vol] 184 mg/dL Critically high 74-106 [facility] Comment on above: Performed By: #### U RCX #### [facility] [address] [address] [address] Lisa Martinez Glucose [Mass/Vol] 137 mg/dL Critically high 74-106 [facility] Comment on above: Result Comment: Foll ow Protocol Performed By: #### C BC #### [facility] [address] [address] [address] Lisa Martinez Glucose [Mass/Vol] 170 mg/dL Critically high -106 [facility] Comment on above: Result Comment: Foll ow Protocol Performed By: #### P OCGLUC ####[facility] [address] [address]DrIngrid Martinez PROF 14(COMP METB)on 022 Albumin [Mass/Vol] 3.0 g/dL Critically low 3.4-5.0 [facility] Comment on above: Performed By: #### C MP ####[facility] [address] [address]Dr. Lisa Martinez Albumin/Globulin [Mass ratio] 0.6 {ratio} Normal [facility] Comment on above: Performed By: #### C MP ####[facility] [address] [address]Dr. Lisa Martinez ALP [Catalytic activity/Vol] 101 U/L Normal 46-116 [facility] Comment on above: Performed By: #### C MP ####[facility] [address] [address]Dr. Lisa Martinez ALT [Catalytic activity/Vol] 16 U/L Normal 14-59 [facility] Comment on above: Performed By: #### C MP ####[facility] [address] [address]DrIngrid Martinez Anion gap [Moles/Vol] 9.7 mmol/L Normal [facility] Comment on above: Performed By: #### C MP ####[facility] [address] [address]Dr. Lisa Martinez AST [Catalytic activity/Vol] 13 U/L Critically low 15-37 [facility] Comment on above: Performed By: #### C MP ####[facility] [address] [id number]. Lisa Martinez Bilirubin [Mass/Vol] 0.5 mg/dL Normal 0.2-1.0 [facility] Comment on above: Performed By: #### C MP ####[facility] [address] [address]Dr. Lisa Martinez Calcium [Mass/Vol] 8.8 mg/dL Normal 8.5-10.1 [facility] Comment on above: Performed By: #### C MP ####[facility] [address] [place], [place] [address]Dr. Lisa Martinez Chloride [Moles/Vol] 104 mmol/L Normal 98-107 [facility] Comment on above: Performed By: #### C MP ####[facility] [address] [place], [place] [address]Dr. Lisa Martinez CO2 [Moles/Vol] 26.8 mmol/L Normal 21.0-32.0 [facility] Comment on above: Performed By: #### C MP ####[facility] [address] [place], [place] [address]Dr. Lisa Juan Creatinine [Mass/Vol] 1.51 mg/dL Critically high 0.55-1.02 [facility] Comment on above: Performed By: #### C MP ####[facility] [address] [place], [place] [id number]. Fabianachapis Juan EGFR-AF CROATIAN 40 mL/min/1.73m2 Critically low >=60 [facility] Comment on above: Performed By: #### C MP ####[facility] [address] [place], [place] [id number]. Lisa Martinez EGFR-NON AF CROATIAN 33 mL/min/1.73m2 Critically low >=60 [facility] Comment on above: Performed By: #### C MP ####[facility] [address] [address]Dr. Lisa Martinez Globulin (S) [Mass/Vol] 4.8 g/dL Normal [facility] Comment on above: Performed By: #### C MP ####[facility] [address] [address]Dr. Lisa Martinez Glucose [Mass/Vol] 177 mg/dL Critically high 74-106 [facility] Comment on above: Performed By: #### C MP ####[facility] [address] [place], [place] [address]Dr. Lisa Martinez Potassium [Moles/Vol] 4.5 mmol/L Normal 3.5-5.1 [facility] Comment on above: Performed By: #### C MP ####[facility] [address] [place], [place] [address]Dr. Lisa Martinez Protein [Mass/Vol] 7.8 g/dL Normal 6.4-8.2 [facility] Comment on above: Performed By: #### C MP ####[facility] [address] [place], [place] [address]Dr. Lisa Martinez Sodium [Moles/Vol] 136 mmol/L Normal 136-145 [facility] Comment on above: Performed By: #### C MP ####[facility] [address] [place], [place] [address]Dr. Lisa Martinez Urea nitrogen [Mass/Vol] 28.0 mg/dL Critically high 7.0-18.0 [facility] Comment on above: Performed By: #### C MP ####[facility] [address] [place], [place] [address]Dr. Lisa Martinez Urea nitrogen/Creatinine [Mass ratio] 18.5 mg/mg Normal [facility] Comment on above: Performed By: #### C MP ####[facility] [address] [place], [place] [address]Dr. Lisa Juan BNPon 04-30-2022 Natriuretic peptide B (Bld) [Mass/Vol] 1752.0 pg/mL Normal <=1,800.0 [facility] Comment on above: Performed By: #### B LUMBER PRESS OPERATOR, BMP #### [facility] [address] [address] [address] Lisa Martinez CBC AUTO DIFFon 04-30-2022 BASO # 0.1 103/ul Normal 0.0-0.1 [facility] Comment on above: Performed By: #### C BC ####[facility] [address] [address]Dr. Lisa Martinez Basophils/100 WBC (Bld) 0.6 % Normal 0.2-2.0 [facility] Comment on above: Performed By: #### C BC ####[facility] [address] [address]DrIngrid Martinez EO # 0.1 103/ul Normal 0.0-0.7 [facility] Comment on above: Performed By: #### C BC ####[facility] [address] [address]Dr. Lisa Martinez Eosinophils/100 WBC (Bld) 1.2 % Normal 0.9-7.0 [facility] Comment on above: Performed By: #### C BC ####[facility] [address] [address]DrIngrid Martinez Erythrocyte distribution width (RBC) [Ratio] 13.2 % Normal 11.0-15.0 [facility] Comment on above: Performed By: #### C BC ####[facility] [address] [address]DrIngrid Martinez Hematocrit (Bld) [Volume fraction] 43.4 % Normal 36.0-48.0 [facility] Comment on above: Performed By: #### C BC ####[facility] [address] [place], [place] [address]Dr. Lisa Martinez Hemoglobin (Bld) [Mass/Vol] 14.2 g/dL Normal 12.0-16.0 [facility] Comment on above: Performed By: #### C BC ####[facility] [address] [id number]. Lisa Martinez IG # 0.13 10e3/ul Critically high 0.00-0.03 [facility] Comment on above: Performed By: #### C BC ####[facility] [address] [id number]. Lisa Martinez IG % 1.6 % Critically high 0.0-0.[address] [facility] Comment on above: Performed By: #### C BC ####[facility] [address] [address]Dr. Lisa Martinez LYMPH # 0.8 103/ul Critically low 1.2-3.8 The [facility] Comment on above: Performed By: #### C BC ####[facility] [address] [address]Dr. Lisa Martinez Lymphocytes/100 WBC (Bld) 9.8 % Critically low 20.5-60.0 [facility] Comment on above: Performed By: #### C BC ####[facility] [address] [address]Dr. Lisa Martinez MANUAL DIFF REQ NO Normal The [facility] Comment on above: Performed By: #### C BC ####[facility] [address] [address]Dr. Lisa Martinez MCH (RBC) [Entitic mass] 30.0 pg Normal 26.7-34.0 [facility] Comment on above: Performed By: #### C BC ####[facility] [address] [address]Dr. Lisa Martinez MCHC (RBC) [Mass/Vol] 32.7 g/dL Normal 29.9-35.2 [facility] Comment on above: Performed By: #### C BC ####[facility] [address] [address]Dr. Lisa Martinez MCV (RBC) [Entitic vol] 91.8 fL Normal 81.0-99.0 [facility] Comment on above: Performed By: #### C BC ####[facility] [address] [id number]. Lisa Martinez MONO # 1.2 103/ul Critically high 0.3-0.[address] [facility] Comment on above: Performed By: #### C BC ####[facility] [address] [id number]. Lisa Martinez Monocytes/100 WBC (Bld) 15.0 % Critically high 1.7-12.0 [facility] Comment on above: Performed By: #### C BC ####[facility] [address] [id number]. Lisa Martinez NEUT # 5.8 103/ul Normal 1.4-6.5 [facility] Comment on above: Performed By: #### C BC ####[facility] [address] [id number]. Lisa Martinez Neutrophils/100 WBC (Bld) 71.8 % Normal 43.0-75.0 [facility] Comment on above: Performed By: #### C BC ####[facility] [address] [id number]. Lisa Martinez Platelet mean volume (Bld) [Entitic vol] 10.5 fL Normal 9.5-13.5 [facility] Comment on above: Performed By: #### C BC ####[facility] [address] [id number]. Lisa Martinez PLT 242 103/ul Normal 150-450 [facility] Comment on above: Performed By: #### C BC ####[facility] [address] [id number]. Lisa Martinez RBC 4.73 106/ul Normal 4.20-5.40 [facility] Comment on above: Performed By: #### C BC ####[facility] [address] [id number]. Lisa Martinez WBC 8.1 103/ul Normal 4.0-11.0 [facility] Comment on above: Performed By: #### C BC ####[facility] [address] [place], [place] [id number]. Lisa Martinez CT HEAD WO CONon 04-30-2022 [...] MEENA HAWKINS Date: 2022-04-30 07:46 Normal [facility] CULTURE BLOODon 04-30-2022 Microscopic examination of blood, culture Culture Observations: NO GROWTH AT 5 DAYS. Normal [facility] Comment on above: Performed By: #### B LDCX2 #### [facility] [address] [place], [place] [address] Dr. Lisa Martinez Microscopic examination of blood, culture Culture Observations: NO GROWTH AT 5 DAYS. Normal [facility] Comment on above: Performed By: #### B LDCX1 ####[facility] [address] [id number]. Lisa Martinez CULTURE URINEon 04-30-2022 CULTURE URINE Culture Observations : No growth Normal [facility] Comment on above: Performed By: #### U RCX ####[facility] [address] [id number]. Lisa Martinez Covid-19 PCR (CVDTBH)on 04-09 SARS-CoV-2 (COVID-19) RNA RACIEL+probe Ql (Unsp spec) Detected Critically abnormal NOT DETECTED [facility] Comment on above: Result Comment: This test is not yet approved or cleared by the [place] FDA. When there are no FDA-approved or cleared tests available, and other criteria are met, FDA can make tests available under an emergency access mechanism called an Emergency Use Authorization (EUA). The EUA for this test is supported by the [employer] of Health and Human Service's declaration that [...] be used). Performed By: #### C VDTB #### [facility] [address] [place] [address] Dr. Lisa Martinez ER URINE PROFILEon 2 Bilirubin Ql (U) Negative Normal NEGATIVE [facility] Comment on above: Performed By: #### C BC #### [facility] [address] [place] [address] Dr. Lisa Martinez Clarity (U) CLEAR Normal CLEAR [facility] Comment on above: Performed By: #### C BC #### [facility] [address] [place] [address] Dr. Lisa Martinez Color (U) LT. YELLOW Normal YELLOW [facility] Comment on above: Performed By: #### C BC #### [facility] [address] [place] [address] Dr. Lisa Martinez ERULAKESHIAD A micrscopic examina tion will be performed if indicated. Normal [facility] Comment on above: Performed By: #### C BC #### [facility] [address] [place] [address] Dr. Lisa Martinez Glucose Ql (U) Negative Normal NEGATIVE [facility] Comment on above: Performed By: #### C BC #### [facility] [address] [place] [address] Dr. Lisa Martinez Hemoglobin Ql (U) Negative Normal NEGATIVE [facility] Comment on above: Performed By: #### C BC #### [facility] [address] [place] [address] Dr. Lisa Martinez Ketones Ql (U) Negative Normal NEGATIVE [facility] Comment on above: Performed By: #### C BC #### [facility] [address] [place] [address] Dr. Lisa Martinez LEUKOCYTES Negative Normal NEGATIVE [facility] Comment on above: Performed By: #### C BC #### [facility] [address] [place] [address] Dr. Lisa Martinez Nitrite Ql (U) Positive Abnormal NEGATIVE [facility] Comment on above: Performed By: #### C BC #### [facility] [address] [place] [address] Dr. Lisa Martinez pH (U) 5.5 [pH] Normal 5-9 [facility] Comment on above: Performed By: #### C BC #### [facility] [address] [place] [address] Dr. Lisa Martinez SPEC GRAVITY 1.030 Abnormal 1.005-<=1.[address] [facility] Comment on above: Performed By: #### C BC #### [facility] [address] [place] [address] Dr. Lisa Martinez UA PROTEIN Negative Normal NEGATIVE/ TRACE [facility] Comment on above: Performed By: #### C BC #### [facility] [address] [place] [address] Dr. Lisa Martinez UR MICRO IND INDICATED Normal [facility] Comment on above: Performed By: #### C BC #### [facility] [address] [place] [address] Dr. Lisa Martinez Urobilinogen Qn (U) 0.2 {Mike'U}/dL Normal 0.2 - 1. 0 [facility] Comment on above: Performed By: #### C BC #### [facility] [address] [place] [address] Dr. Lisa Martinez GLYCOHEMOGLOBIN A1Con 2021 ADA RECOMMENDATION SEE BELOW Normal [facility] Comment on above: Result Comment: ADA RECOMMENDED LIMIT 4.0 - 6.0 ADA THERAPEUTIC TARGET < 7.0 ACTION SUGGESTED > 7.0 Performed By: #### B LUMBER PRESS OPERATOR, BMP #### [facility] [address] [place] [address] Dr. Lisa Martinez Glucose [Mass/Vol] 154 mg/dL Normal [facility] Comment on above: Performed By: #### B LUMBER PRESS OPERATOR, BMP #### [facility] [address] [address] [address] Lisa Martinez HbA1c (Bld) [Mass fraction] 7.0 % Critically high 4.5-6.2 [facility] Comment on above: Performed By: #### B LUMBER PRESS OPERATOR, BMP #### [facility] [address] [address] [address] Lisa Martinez LACTATE/LACTIC ACIDon 2021 Lactate [Moles/Vol] 1.1 mmol/L Normal 0.4-1.9 [facility] Comment on above: Performed By: #### L ACT ####[facility] [address] [address]Dr. Lisa Martinez LIPASEon 04-30-2022 Lipase [Catalytic activity/Vol] 53.0 U/L Critically low 73.0-393.0 [facility] Comment on above: Performed By: #### B LUMBER PRESS OPERATOR, BMP #### [facility] [address] [address] [address] Lisa Martinez LIVER PROFILEon 04-30-2022 Albumin [Mass/Vol] 3.4 g/dL Normal 3.4-5.0 [facility] Comment on above: Performed By: #### U RCX #### [facility] [address] [place] [address] Dr. Lisa Martinez Albumin/Globulin [Mass ratio] 0.7 {ratio} Normal [facility] Comment on above: Performed By: #### U RCX #### [facility] [address] [address] [address] Lisa Martinez ALP [Catalytic activity/Vol] 110 U/L Normal 46-116 [facility] Comment on above: Performed By: #### U RCX #### [facility] [address] [place] [address] Dr. Lisa Martinez ALT [Catalytic activity/Vol] 20 U/L Normal 14-59 [facility] Comment on above: Performed By: #### U RCX #### [facility] [address] [address] [address] Lisa Martinez AST [Catalytic activity/Vol] 16 U/L Normal 15-37 [facility] Comment on above: Performed By: #### U RCX #### [facility] [address] [address] [address] Lisa Martinez BILI, CONJUGATED 0.2 mg/dL Normal 0.0-0.2 [facility] Comment on above: Performed By: #### U RCX #### [facility] [address] [address] [address] Lisa Martinez Bilirubin [Mass/Vol] 0.7 mg/dL Normal 0.2-1.0 [facility] Comment on above: Performed By: #### U RCX #### [facility] Laboratory [address] [place] [address] Dr. Lisa Martinez Globulin (S) [Mass/Vol] 5.0 g/dL Normal [facility] Comment on above: Performed By: #### U RCX #### [facility] [address] [place] [address] Dr. Lisa Martinez Protein [Mass/Vol] 8.4 g/dL Critically high 6.4-8.2 [facility] Comment on above: Performed By: #### U RCX #### [facility] [address] [place] [address] Dr. Lisa Martinez POINT OF CARE GLUCOSEon 10-2 Glucose [Mass/Vol] 203 mg/dL Critically high 74-106 [facility] Comment on above: Performed By: #### B LUMBER PRESS OPERATOR, BMP #### [facility] [address] [place] [address] Dr. Lisa Martinez Glucose [Mass/Vol] 174 mg/dL Critically high 74-106 [facility] Comment on above: Performed By: #### C BC #### [facility] [address] [place] [address] Dr. Lisa Martinez Glucose [Mass/Vol] 149 mg/dL Critically high 74-106 [facility] Comment on above: Performed By: #### B LDCX2 #### [facility] [address] [address] [address] Lisa Martinez PROF CHEM 8 (BAS METB)on Anion gap [Moles/Vol] 15.3 mmol/L Normal Th [facility] Comment on above: Performed By: #### C BC #### [facility] [address] [address] [address] Lisa Martinez Calcium [Mass/Vol] 9.1 mg/dL Normal 8.5-10.1 [facility] Comment on above: Performed By: #### C BC #### [facility] [address] [address] [address] Lisa Martinez Chloride [Moles/Vol] 98 mmol/L Normal 98-107 [facility] Comment on above: Performed By: #### C BC #### [facility] [address] [place] [address] Dr. Lisa Martinez CO2 [Moles/Vol] 24.4 mmol/L Normal 21.0-32.0 [facility] Comment on above: Performed By: #### C BC #### [facility] [address] [address] [address] Lisa Martinez Creatinine [Mass/Vol] 1.44 mg/dL Critically high 0.55-1.02 [facility] Comment on above: Performed By: #### C BC #### [facility] [address] [address] [address] Lisa Martinez EGFR-AF CROATIAN 42 mL/min/1.73m2 Critically low >=60 [facility] Comment on above: Performed By: #### C BC #### [facility] [address] [address] [address] Lisa Martinez EGFR-NON AF CROATIAN 35 mL/min/1.73m2 Critically low >=60 [facility] Comment on above: Performed By: #### C BC #### [facility] [address] [address] [address] Lisa Martinez Glucose [Mass/Vol] 225 mg/dL Critically high 74-106 [facility] Comment on above: Performed By: #### C BC #### [facility] [address] [address] [address] Lisa Martinez Potassium [Moles/Vol] 4.7 mmol/L Normal 3.5-5.1 [facility] Comment on above: Performed By: #### C BC #### [facility] [address] [address] [address] Lisa Martinez Sodium [Moles/Vol] 133 mmol/L Critically low 136-145 Th e [facility] Comment on above: Performed By: #### C BC #### [facility] [address] [place] [address] Dr. Lisa Martinez Urea nitrogen [Mass/Vol] 37.0 mg/dL Critically high 7.0-18.0 [facility] Comment on above: Performed By: #### C BC #### [facility] [address] [place] [address] Dr. Lisa Martinez Urea nitrogen/Creatinine [Mass ratio] 25.7 mg/mg Normal [facility] Comment on above: Performed By: #### C BC #### [facility] [address] [place] [address] Dr. Lisa Martinez PROTIMEon 04-30-2022 INR Coag (PPP) [Relative time] 1.02 {INR} Normal [facility] Comment on above: Performed By: #### K U #### [facility] [address] [place] [address] Dr. Lisa Martinez INR GUIDELINES SEE BELOW Normal [facility] Comment on above: Result Comment: ANTONY RED INR: 2.0 - 3.0 CONDITIONS NOT LISTED BELOW 2.5 - 3.5 FOR PROSTHETIC HEART VALVE REPLACEMENT 2.5 - 3.5 RECURRENT THROMBOSIS Performed By: #### K U #### [facility] [address] [place] [address] Dr. Lisa Martniez PT Coag (PPP) [Time] 11.0 s Normal 9.0-11.6 [facility] Comment on above: Performed By: #### K U #### [facility] [address] [place] [address] Dr. Lisa Martinez PTTon 04-30-2022 aPTT Coag (Bld) [Time] 27.5 s Normal 22.3-36.2 [facility] Comment on above: Performed By: #### K U #### [facility] [address] [place] [address] Dr. Lisa Martinez TROPONIN, HIGH SENSITIVITYon 04-30-2022 HSTROP 20.0 pg/mL Normal 4.0-51.3 [facility] Comment on above: Result Comment: CUT- OFF POINTS HAVE BEEN ESTABLISHED BASED ON THE FOURTH UNIVERSAL DEFINITIONS OF MYOCARDIAL INFARCTION. THE UPPER REFERENCE LIMIT (URL) OF TROPONIN, DEFINED THE 99TH PERCENTILE OF cTnI DISTRIBUTION IN A REFERENCE POPULATION, HAS BEEN CONFIRMED THE DECISION THRESHOLD FOR MO DIAGNOSIS. Performed By: #### U RCX #### [facility] [address] [place] [address] Dr. Lisa Martinez URINE MICROSCOPIC ONLYon BACTERIA MODERATE Abnormal NONE SEEN [facility] Comment on above: Performed By: #### K U #### [facility] [address] [place] [address] Dr. Lisa Martinez Bacteria identified Cx Nom (U) INDICATED Normal [facility] Comment on above: Performed By: #### K U #### [facility] [address] [place] [address] Dr. Lisa Martinez CAST NONE SEEN Normal NONE SEEN [facility] Comment on above: Performed By: #### K U #### [facility] [address] [place] [address] Dr. Lisa Martinez Crystals LM Nom (Urine sed) NONE SEEN Normal NONE SEEN [facility] Comment on above: Performed By: #### K U #### [facility] [address] [place] [address] Dr. Lisa Martinez Epithelial cells LM Ql (Urine sed) RARE Normal NONE SEEN /RARE [facility] Comment on above: Performed By: #### K U #### [facility] [address] [place] [address] Dr. Lisa Martinez MUCOUS NONE SEEN Normal NONE SEEN [facility] Comment on above: Performed By: #### K U #### [facility] [address] [place] [address] Dr. Lisa Martinez RBC NONE SEEN Abnormal 0-2 [facility] Comment on above: Performed By: #### K U #### [facility] [address] [place] [address] Dr. Lisa Martinez WBC 0-2 Abnormal NONE SEEN [facility] Comment on above: Performed By: #### K U #### [facility] [address] [place] [address] Dr. Lisa Martinez XR CHEST 1 Von [...] MEENA HAWKINS Date: 2022-04-30 07:42 Normal [facility] FREE T3on 04-12-2022 FREE T3 2.10 pg/mlL Critically low 2.18-3.[address] [facility] Comment on above: Performed By: #### C VDTBH #### [facility] [address] [place] [address] Dr. Lisa Martinez FREE T4on 04-12-2022 Free T4 [Mass/Vol] 0.88 ng/dL Normal 0.76-1.46 [facility] Comment on above: Performed By: #### B LDCX2 #### [facility] [address] [place] [address] Dr. Lisa Martinez TSHon 04-12-2022 TSH 5.007 uIU/mL Critically high 0.358-3.740 [facility] Comment on above: Performed By: #### C VDTBH #### [facility] [address] [place] [address] Dr. Lisa Martinez US THYROIDon 04-12-2022 US [...] MEENA HAWKINS Date: 2022-04-12 13:20 Normal [facility] CBC AUTO DIFFon 02-12-2022 BASO # 0.1 103/ul Normal 0.0-0.1 [facility] Comment on above: Performed By: #### K U #### [facility] [address] [place] [address] Dr. Lisa Martinez Basophils/100 WBC (Bld) 0.7 % Normal 0.2-2.0 [facility] Comment on above: Performed By: #### K U #### [facility] [address] [place] [address] Dr. Lisa Martinez EO # 0.3 103/ul Normal 0.0-0.7 [facility] Comment on above: Performed By: #### K U #### [facility] [address] [address] [address] Lisa Martinez Eosinophils/100 WBC (Bld) 3.3 % Normal 0.9-7.0 [facility] Comment on above: Performed By: #### K U #### [facility] [address] [place] [address] Dr. Lisa Martinez Erythrocyte distribution width (RBC) [Ratio] 13.0 % Normal 11.0-15.0 [facility] Comment on above: Performed By: #### K U #### [facility] [address] [address] [address] Lisa Martinez Hematocrit (Bld) [Volume fraction] 34.6 % Critically low 36.0-48.0 [facility] Comment on above: Performed By: #### K U #### [facility] [address] [place] [address] Dr. Lisa Martinez Hemoglobin (Bld) [Mass/Vol] 11.1 g/dL Critically low 12.0-16.0 [facility] Comment on above: Performed By: #### K U #### [facility] [address] [place] [address] Dr. Lisa Martinez IG # 0.04 10e3/ul Critically high 0.00-0.03 [facility] Comment on above: Performed By: #### K U #### [facility] [address] [place] [address] Dr. Lisa Martinez IG % 0.4 % Normal 0.0-0.5 [facility] Comment on above: Performed By: #### K U #### [facility] [address] [place] [address] Dr. Lisa Martinez LYMPH # 1.0 103/ul Critically low 1.2-3.8 [facility] Comment on above: Performed By: #### K U #### [facility] [address] [place] [address] Dr. Lisa Martinez Lymphocytes/100 WBC (Bld) 10.6 % Critically low 20.5-60.0 [facility] Comment on above: Performed By: #### K U #### [facility] [address] [place] [address] Dr. Lisa Martinez MANUAL DIFF REQ NO Normal [facility] Comment on above: Performed By: #### K U #### [facility] [address] [place] [address] Dr. Lisa Martinez MCH (RBC) [Entitic mass] 31.3 pg Normal 26.7-34.0 [facility] Comment on above: Performed By: #### K U #### [facility] [address] [address] [address] Lisa Martinez MCHC (RBC) [Mass/Vol] 32.1 g/dL Normal 29.9-35.2 [facility] Comment on above: Performed By: #### K U #### [facility] [address] [address] [address] Lisa Martinez MCV (RBC) [Entitic vol] 97.5 fL Normal 81.0-99.0 [facility] Comment on above: Performed By: #### K U #### [facility] [address] [address] [address] Lisa Martinez MONO # 0.9 103/ul Critically high 0.3-0.[address] [facility] Comment on above: Performed By: #### K U #### [facility] [address] [address] [address] Lisa Martinez Monocytes/100 WBC (Bld) 9.5 % Normal 1.7-12.0 [facility] Comment on above: Performed By: #### K U #### [facility] [address] [address] [address] Lisa Martinez NEUT # 6.9 103/ul Critically high 1.4-6.[address] [facility] Comment on above: Performed By: #### K U #### [facility] [address] [address] [address] Lisa Martinez Neutrophils/100 WBC (Bld) 75.5 % Critically high 43.0-75.0 [facility] Comment on above: Performed By: #### K U #### [facility] [address] [address] [address] Lisa Martinez Platelet mean volume (Bld) [Entitic vol] 9.9 fL Normal 9.5-13.5 [facility] Comment on above: Performed By: #### K U #### [facility] [address] [address] [address] Lisa Martinez PLT 255 103/ul Normal 150-450 [facility] Comment on above: Performed By: #### K U #### [facility] [address] [address] [address] Lisa Martinez RBC 3.55 106/ul Critically low 4.20-5.[address] [facility] Comment on above: Performed By: #### K U #### [facility] [address] [address] [address] Lisa Martinez WBC 9.2 103/ul Normal 4.0-11.0 [facility] Comment on above: Performed By: #### K U #### [facility] [address] [address] [address] Lisa Martinez CRPon 02-12-2022 CRP 0.7 mg/dL Normal <=1.0 [facility] Comment on above: Performed By: #### B LUMBER PRESS OPERATOR, BMP #### [facility] [address] [address] [address] Lisa Martinez SED RATE WESTERGRENon 2021 SED RATE 56 mm/hr Critically high <=[address] [facility] Comment on above: Performed By: #### S EDR ####[facility] [address] [address]Dr. Lisa Martinez URIC ACID SERUMon 02-12-2022 Urate [Mass/Vol] 9.2 mg/dL Critically high 2.6-6.0 [facility] Comment on above: Performed By: #### B LUMBER PRESS OPERATOR, BMP #### [facility] [address] [address] [address] Lisa Martinez XR FOOT LT MIN 3 VIEWSon XR FOOT LT MIN 3 VIEWS EXAM: XR FOOT LT MIN 3 VIEWS INDICATION: Bone injury. COMPARISON: None. TECHNIQUE: Left foot, 3 views. FINDINGS: No acute fracture or dislocation identified. Severe degenerative changes of the first MTP joint. Plantar calcaneal spur. Unremarkable soft tissues. IMPRESSION: No acute osseous abnormality. Electronically authenticated by: ROSINA MENENDEZ Date: 2022-02-12 13:01 Normal [facility] HEMOGRAM AND PLATELon 2021 Hematocrit (Bld) [Volume fraction] 35.7 % Critically low 36.0-48.0 [facility] Comment on above: Performed By: #### U RCX #### [facility] [address] [place] [address] Dr. Lisa Martinez Hemoglobin (Bld) [Mass/Vol] 11.7 g/dL Critically low 12.0-16.0 [facility] Comment on above: Performed By: #### U RCX #### [facility] [address] [place] [address] Dr. Lisa Martinez MCH (RBC) [Entitic mass] 31.5 pg Normal 26.7-34.0 [facility] Comment on above: Performed By: #### U RCX #### [facility] [address] [place] [address] Dr. Lisa Martinez MCHC (RBC) [Mass/Vol] 32.8 g/dL Normal 29.9-35.2 [facility] Comment on above: Performed By: #### U RCX #### [facility] [address] [place] [address] Dr. Lisa Martinez MCV (RBC) [Entitic vol] 96.2 fL Normal 81.0-99.0 [facility] Comment on above: Performed By: #### U RCX #### [facility] [address] [place] [address] Dr. Lisa Martinez PLT 268 103/ul Normal 150-450 [facility] Comment on above: Performed By: #### U RCX #### [facility] [address] [place] [address] Dr. Lisa Martinez RBC 3.71 106/ul Critically low 4.20-5.40 [facility] Comment on above: Performed By: #### U RCX #### [facility] [address] [place] [address] Dr. Lisa Martinez WBC 9.3 103/ul Normal 4.0-11.0 [facility] Comment on above: Performed By: #### U RCX #### [facility] [address] [place] [address] Dr. Lisa Martinez PROF CHEM 8 (BAS METB)on Anion gap [Moles/Vol] 11.2 mmol/L Normal Th e [facility] Comment on above: Performed By: #### C VDTBH #### [facility] [address] [place] [address] Dr. Lisa Martinez Calcium [Mass/Vol] 9.1 mg/dL Normal 8.5-10.1 [facility] Comment on above: Performed By: #### C VDTBH #### [facility] [address] [place] [address] Dr. Lisa Martinez Chloride [Moles/Vol] 104 mmol/L Normal 98-107 [facility] Comment on above: Performed By: #### C VDTBH #### [facility] [address] [place] [address] Dr. Lisa Martinez CO2 [Moles/Vol] 30.6 mmol/L Normal 21.0-32.0 [facility] Comment on above: Performed By: #### C VDTBH #### [facility] [address] [place] [address] Dr. Lisa Martinez Creatinine [Mass/Vol] 1.64 mg/dL Critically high 0.55-1.02 [facility] Comment on above: Performed By: #### C VDTBH #### [facility] [address] [place] [address] Dr. Lisa Martinez EGFR-AF CROATIAN 36 mL/min/1.73m2 Critically low >=60 [facility] Comment on above: Performed By: #### C VDTBH #### [facility] [address] [place] [address] Dr. Lisa Martinez EGFR-NON AF CROATIAN 30 mL/min/1.73m2 Critically low >=60 [facility] Comment on above: Performed By: #### C VDTBH #### [facility] [address] [place] [address] Dr. Lisa Martinez Glucose [Mass/Vol] 61 mg/dL Critically low 74-106 Th [facility] Comment on above: Performed By: #### C VDTBH #### [facility] [address] [place] [address] Dr. Lisa Martinez Potassium [Moles/Vol] 4.8 mmol/L Normal 3.5-5.1 [facility] Comment on above: Performed By: #### C VDTBH #### [facility] [address] [address] [address] Lisa Martinez Sodium [Moles/Vol] 141 mmol/L Normal 136-145 [facility] Comment on above: Performed By: #### C VDTBH #### [facility] [address] [address] [address] Lisa Martinez Urea nitrogen [Mass/Vol] 34.0 mg/dL Critically high 7.0-18.0 [facility] Comment on above: Performed By: #### C VDTBH #### [facility] [address] [address] [address] Lisa Martinez Urea nitrogen/Creatinine [Mass ratio] 20.7 mg/mg Normal [facility] Comment on above: Performed By: #### C VDTBH #### [facility] [address] [place] [address] Dr. Lisa Martinez Cardiovascular Lab Reporton 12-21-2021 Cardiovascular Lab Report [facility] Patient Name: Jenni Quin[facility] MR #: [id number] Physician: Josefina Villanueva Department of [facility] Service Date: 12/20/2021 Division of Birthdate: 1940 Cardiology Room #: Adult Cardiovascular Services [address] [place] [address] Cardiovascular Laboratory Report INDICATION: The patient is [...] the consent. She was brought to the microbiology laboratory manager in a fasting state. The right neck area was prepped and draped in usual fashion. Micropuncture technique and ultrasound guidance were used for access in the right internal jugular vein. A 6-Niuean x 11 cm sheath was placed. A 6-Niuean Becker catheter was used for right heart [...] month with BMP. Electronically Signed by: Josefina Nova M.D. 12/24/2021 11:53 A Josefina Nova M.D. Date Dict: 12/20/2021/03:26 P/Josefina Nova M.D. Date Trans: 12/21/2021 06:38 A/kali [id number] cc: Jasvir León M.D. 3 [facility] [address] Normal The [facility] Covid-19 PCR (CVDTB)on 12-07 SARS-CoV-2 (COVID-19) RNA RACIEL+probe Ql (Unsp spec) Not detected Normal NOT DETECTED [facility] Comment on above: Result Comment: This test is not yet approved or cleared by the [place] FDA. When there are no FDA-approved or cleared tests available, and other criteria are met, FDA can make tests available under an emergency access mechanism called an Emergency Use Authorization (EUA). The EUA for this test is supported by the [place] of Health and Human Service's (HHS's) declaration [...] SARS-CoV-2. Performed By: #### K U #### [facility] Laboratory [address] [place] [address] Dr. Lisa Martinez HEMOGRAM AND PLATELon 2021 Hematocrit (Bld) [Volume fraction] 37.7 % Normal 36.0-48.0 [facility] Comment on above: Performed By: #### H H ####[facility] [address] [address]Dr. Lisa Martinez Hemoglobin (Bld) [Mass/Vol] 11.8 g/dL Critically low 12.0-16.0 [facility] Comment on above: Performed By: #### H H ####[facility] [address] [address]Dr. Lisa Martinez MCH (RBC) [Entitic mass] 30.7 pg Normal 26.7-34.0 [facility] Comment on above: Performed By: #### H H ####[facility] [address] [address]Dr. Lisa Martinez MCHC (RBC) [Mass/Vol] 31.3 g/dL Normal 29.9-35.2 [facility] Comment on above: Performed By: #### H H ####[facility] [address] [address]Dr. Fabianachapis Martinez MCV (RBC) [Entitic vol] 98.2 fL Normal 81.0-99.0 [facility] Comment on above: Performed By: #### H H ####[facility] [address] [address]Dr. Lisa Martinez PLT 238 103/ul Normal 150-450 [facility] Comment on above: Performed By: #### H H ####[facility] [address] [address]Dr. Lisa Martinez RBC 3.84 106/ul Critically low 4.20-5.40 [facility] Comment on above: Performed By: #### H H ####[facility] [address] [place], [place] [address]Dr. Lisa Martinez WBC 8.6 103/ul Normal 4.0-11.0 [facility] Comment on above: Performed By: #### H H ####[facility] [address] [place], [place] [address]Dr. Lisa Martinez PROF CHEM 8 (BAS METB)on Anion gap [Moles/Vol] 13.7 mmol/L Normal [facility] Comment on above: Performed By: #### B MP ####[facility] [address] [place], [place] [address]Dr. Lisa Martinez Calcium [Mass/Vol] 9.1 mg/dL Normal 8.5-10.1 [facility] Comment on above: Performed By: #### B MP ####[facility] [address] [address]Dr. Lisa Martinez Chloride [Moles/Vol] 107 mmol/L Normal 98-107 [facility] Comment on above: Performed By: #### B MP ####[facility] [address] [place], [place] [address]Dr. Lisa Martinez CO2 [Moles/Vol] 26.9 mmol/L Normal 21.0-32.0 [facility] Comment on above: Performed By: #### B MP ####[facility] [address] [address]Dr. Lisa Martinez Creatinine [Mass/Vol] 1.48 mg/dL Critically high 0.55-1.02 [facility] Comment on above: Performed By: #### B MP ####[facility] [address] [address]Dr. Lisa Martinez EGFR-AF CROATIAN 41 mL/min/1.73m2 Critically low >=60 [facility] Comment on above: Performed By: #### B MP ####[facility] [address] [place], [place] [address]Dr. Lisa Martinez EGFR-NON AF CROATIAN 34 mL/min/1.73m2 Critically low >=60 [facility] Comment on above: Performed By: #### B MP ####[facility] [address] [place], [place] [address]Dr. Lisa Martinez Glucose [Mass/Vol] 161 mg/dL Critically high 74-106 [facility] Comment on above: Performed By: #### B MP ####[facility] [address] [place], [place] [address]Dr. Lisa Juan Potassium [Moles/Vol] 4.6 mmol/L Normal 3.5-5.1 [facility] Comment on above: Performed By: #### B MP ####[facility] [address] [place], [place] [address]Dr. Lisa Martinez Sodium [Moles/Vol] 143 mmol/L Normal 136-145 [facility] Comment on above: Performed By: #### B MP ####[facility] [address] [place], [place] [address]Dr. Lisa Juan Urea nitrogen [Mass/Vol] 35.0 mg/dL Critically high 7.0-18.0 [facility] Comment on above: Performed By: #### B MP ####[facility] [id number] [place], [place] [address]Dr. Lisa Martinez Urea nitrogen/Creatinine [Mass ratio] 23.6 mg/mg Normal [facility] Comment on above: Performed By: #### B MP ####[facility] [id number] [place], [place] [address]Qk. Lisa Martinez [facility] Metabolic Pane yesica 08-17-2021 Albumin [Mass/Vol] 4.4 g/dL Normal 3.6-5.1 [facility] Comment on above: Performed By: #### C MP #### [facility] [address], [place] [id number] Albumin/Globulin [Mass ratio] 1.4 {ratio} Normal 1.0-2.5 [facility] Comment on above: Performed By: #### C MP #### [facility] [address], [place] [id number] ALP [Catalytic activity/Vol] 89 U/L Normal 35-119 [facility] Comment on above: Performed By: #### C MP #### [facility] [address], [place] [id number] ALT [Catalytic activity/Vol] 13 U/L Normal 6-33 [facility] Comment on above: Result Comment: 06/08 Female reference range changed. Performed By: #### C MP #### [facility] [address], [place] [id number] Anion gap [Moles/Vol] 18 mmol/L Normal 12-20 [facility] Comment on above: Result Comment: Effe ctive 07/14/2019 reference range changed. Performed By: #### C MP #### [facility] [address], [place] [id number] AST [Catalytic activity/Vol] 20 U/L Normal 9-34 [facility] Comment on above: Performed By: #### C MP #### [facility] [address], [place] [id number] Bilirubin [Mass/Vol] 0.34 mg/dL Normal 0.30-1.20 [facility] Comment on above: Performed By: #### C MP #### [facility] [address], [place] [id number] BUN/CREA 28 Ratio High 6-22 [facility] Comment on above: Performed By: #### C MP #### [facility] [address], [place] [id number] Calcium [Mass/Vol] 9.8 mg/dL Normal 8.6-10.2 [facility] Comment on above: Performed By: #### C MP #### [facility] [address] [place] [id number] Chloride [Moles/Vol] 106 mmol/L Normal 98-107 [facility] Comment on above: Performed By: #### C MP #### [facility] [address] [facility] [place] [id number] CO2 [Moles/Vol] 23 mmol/L Normal 20-31 [facility] Comment on above: Performed By: #### C MP #### [facility] [address] [facility] [place] [id number] Creatinine [Mass/Vol] 1.1 mg/dL Normal 0.6-1.4 [facility] Comment on above: Performed By: #### C MP #### [facility] [address] [facility] [place] [id number] eGFRAA 59 mL/min/1.73m2 Low >60 [facility] Comment on above: Performed By: #### C MP #### [facility] [address] [facility] [place] [id number] eGFRNAA 49 mL/min/1.73m2 Low >60 [facility] Comment on above: Performed By: #### C MP #### [facility] [address], [place] [id number] Globulin (S) [Mass/Vol] 3.2 g/dL Normal 1.9-3.7 [facility] Comment on above: Performed By: #### C MP #### [facility] [address], [place] [id number] Glucose [Mass/Vol] 51 mg/dL Low 65-99 [facility] Comment on above: Result Comment: For FASTING Glucose --- ADA reference ranges: Normal 65-99 mg/dl Prediabetes 100-125 Diabetes >/= 126 Performed By: #### C MP #### [facility] [address] [facility] [place] [id number] Potassium [Moles/Vol] 4.5 mmol/L Normal 3.5-5.5 [facility] Comment on above: Performed By: #### C MP #### [facility] [address], [place] [id number] Protein [Mass/Vol] 7.6 g/dL Normal 6.1-8.1 [facility] Comment on above: Performed By: #### C MP #### [facility] [address], [place] [id number] Sodium [Moles/Vol] 143 mmol/L Normal 135-146 [facility] Comment on above: Performed By: #### C MP #### [facility] [address], [place] [id number] Urea nitrogen [Mass/Vol] 31 mg/dL High 7-[address] [facility] Specialist Comment on above: Performed By: #### C MP #### [facility] [address], [place] [id number] Complete Blood Counton 08-03 Erythrocyte distribution width (RBC) [Ratio] 13.2 % Normal 11.0-15.[address] [facility] Special[facility] Comment on above: Performed By: #### C BC, TSH, FT3, FT4, CMP #### [facility] [address] [place], [place] [id number] Hematocrit (Bld) [Volume fraction] 36.6 % Normal 35.0-47.[address] [facility] Comment on above: Performed By: #### C BC, TSH, FT3, FT4, CMP #### [facility] [address], [place] [id number] Hemoglobin (Bld) [Mass/Vol] 11.4 g/dL Low 11.6-15.5 [facility] Comment on above: Performed By: #### C BC, TSH, FT3, FT4, CMP #### [facility] [address] [place], [place] [id number] MCH (RBC) [Entitic mass] 31.1 pg Normal 27.0-33.[address] [facility] Comment on above: Performed By: #### C BC, TSH, FT3, FT4, CMP #### [facility] [address], [place] [id number] MCHC (RBC) [Mass/Vol] 31.1 g/dL Low 32.0-36.0 [facility] Comment on above: Performed By: #### C BC, TSH, FT3, FT4, CMP #### [facility] [address], [place] [id number] MCV (RBC) [Entitic vol] 100 fL Normal 80-100 [facility] Comment on above: Performed By: #### C BC, TSH, FT3, FT4, CMP #### [facility] [address] [place], [place] [id number] Platelet mean volume (Bld) [Entitic vol] 10.10 fL Normal 7.50-12.50 [facility] Comment on above: Performed By: #### C BC, TSH, FT3, FT4, CMP #### [facility] [address] [place], [place] [id number] Platelets (Bld) [#/Vol] 245 10*3/uL Normal 140-[address] [facility] Comment on above: Performed By: #### C BC, TSH, FT3, FT4, CMP #### [facility] [address] [place], [place] [id number] RBC (Bld) [#/Vol] 3.66 10*6/uL Low 3.90-5.20 [facility] Comment on above: Performed By: #### C BC, TSH, FT3, FT4, CMP #### [facility] [address] [place], [place] [id number] RDW-SD 48.1 fL Normal 37.0-50.[address] [facility] Comment on above: Performed By: #### C BC, TSH, FT3, FT4, CMP #### [facility] [address], [place] [id number] WBC (Bld) [#/Vol] 8.7 10*3/uL Normal 3.8-11.0 [facility] Comment on above: Performed By: #### C BC, TSH, FT3, FT4, CMP #### [facility] [address] [place], [place] [id number] Comprehensive Metabolic Pane yesica 08-03-2021 Albumin [Mass/Vol] 3.9 g/dL Normal 3.6-5.1 [facility] Comment on above: Performed By: #### C BC, TSH, FT3, FT4, CMP #### [facility] [address], [place] [id number] Albumin/Globulin [Mass ratio] 1.1 {ratio} Normal 1.0-2.5 [facility] Comment on above: Performed By: #### C BC, TSH, FT3, FT4, CMP #### [facility] [address], [place] [id number] ALP [Catalytic activity/Vol] 105 U/L Normal 35-[address] [facility] Comment on above: Performed By: #### C BC, TSH, FT3, FT4, CMP #### [facility] [address], [place] [id number] ALT [Catalytic activity/Vol] 10 U/L Normal 6-33 [facility] Comment on above: Result Comment: 06/08 Female reference range changed. Performed By: #### C BC, TSH, FT3, FT4, CMP #### [facility] [address], [place] [id number] Anion gap [Moles/Vol] 20 mmol/L Normal 12-20 [facility] Comment on above: Result Comment: Effe ctive 07/14/2019 reference range changed. Performed By: #### C BC, TSH, FT3, FT4, CMP #### [facility] [address] [place], [place] [id number] AST [Catalytic activity/Vol] 19 U/L Normal 9-[address] [facility] Comment on above: Performed By: #### C BC, TSH, FT3, FT4, CMP #### [facility] [address] [place], [place] [id number] BUN/CREA 24 Ratio High 6-[address] [facility] Comment on above: Performed By: #### C BC, TSH, FT3, FT4, CMP #### [facility] [address] [place], [place] [id number] Calcium [Mass/Vol] 9.6 mg/dL Normal 8.6-10.2 [facility] [place] [facility] Comment on above: Performed By: #### C BC, TSH, FT3, FT4, CMP #### [facility] [address] [place], [place] [id number] Chloride [Moles/Vol] 106 mmol/L Normal 98-107 [facility] Comment on above: Performed By: #### C BC, TSH, FT3, FT4, CMP #### [facility] [address] [place], [place] [id number] CO2 [Moles/Vol] 21 mmol/L Normal 20-[address] [facility] Comment on above: Performed By: #### C BC, TSH, FT3, FT4, CMP #### [facility] [address], [place] [id number] Creatinine [Mass/Vol] 2.6 mg/dL High 0.6-1.4 [facility] Specialist Comment on above: Performed By: #### C BC, TSH, FT3, FT4, CMP #### [facility] [address] [place], [place] [id number] eGFRAA 22 mL/min/1.73m2 Low >[address] [facility] Comment on above: Performed By: #### C BC, TSH, FT3, FT4, CMP #### [facility] [address] [place], [place] [id number] eGFRNAA 18 mL/min/1.73m2 Low >[address] [facility] Comment on above: Performed By: #### C BC, TSH, FT3, FT4, CMP #### [facility] [address] [place], [place] [id number] Globulin (S) [Mass/Vol] 3.4 g/dL Normal 1.9-3.7 [facility] Comment on above: Performed By: #### C BC, TSH, FT3, FT4, CMP #### [facility] [address], [place] [id number] Glucose [Mass/Vol] 93 mg/dL Normal 65-99 [facility] [place] [facility] Comment on above: Result Comment: For FASTING Glucose --- ADA reference ranges: Normal 65-99 mg/dl Prediabetes 100-125 Diabetes >/= 126 Performed By: #### C BC, TSH, FT3, FT4, CMP #### [facility] [address] [place], [place] [id number] Potassium [Moles/Vol] 6.9 mmol/L Critically high 3.5-5.5 [facility] Comment on above: Result Comment: Repo rt given to Dr León (K) Performed By: #### C BC, TSH, FT3, FT4, CMP #### [facility] [address], [place] [id number] Protein [Mass/Vol] 7.3 g/dL Normal 6.1-8.1 [facility] Comment on above: Performed By: #### C BC, TSH, FT3, FT4, CMP #### [facility] [address] [place], [place] [id number] Sodium [Moles/Vol] 139 mmol/L Normal 135-146 [facility] Final [facility]er Comment on above: Performed By: #### C BC, TSH, FT3, FT4, CMP #### [facility] [address] [place], [place] [id number] TBIL <0.3 Normal [facility] Final [facility] Comment on above: Performed By: #### C BC, TSH, FT3, FT4, CMP #### [facility] [address] [place], [place] [id number] Urea nitrogen [Mass/Vol] 62 mg/dL High 7-25 [facility] Comment on above: Performed By: #### C BC, TSH, FT3, FT4, CMP #### [facility] [address] [place], [place] [id number] Free T3on 08-03-2021 FT3 2.05 pg/mL Normal 2.00-4.40 [facility] Comment on above: Performed By: #### C BC, TSH, FT3, FT4, CMP #### [facility] [address] [place], [place] [id number] Free T4on 08-03-2021 Free T4 [Mass/Vol] 0.91 ng/dL Normal 0.80-1.80 [facility] Comment on above: Performed By: #### C BC, TSH, FT3, FT4, CMP #### [facility] [address] [place], [place] [id number] Q - B-TYPE NATRIURETIC (BNP) on 08-03-2021 Natriuretic peptide B (Bld) [Mass/Vol] 283 pg/mL High <100 [facility] Final [facility] Comment on above: Order Comment: [facility] Testing performed at: QPT, [facility], [address], [address] [place], [address], Kindergarten Teacher: Boone Calderón MD [facility] Collection Date/Time: [id number] [facility] Results Received Date/Time: [facility] Reported Date/Time: Result Comment: BNP levels increase with age in the general population with the highest values seen in individuals greater than 75 years of age. Reference: J. Am. Priya. Cardiol. 2002; 40:976-982. Performed By: #### [id number] #### [facility] Default [address] [place] [address] TSHon 08-03-2021 TSH 3.450 uIU/mL Normal 0.400-4.500 [facility] Final Cleaner Comment on above: Performed By: #### C BC, TSH, FT3, FT4, CMP #### [facility] [address] [place], [place] [id number] COVID Quick Testingon 2020 Result Negative [employer] Other Quick Fluon 06-06-2021 FLUAV Ab CF (S) [Titer] Negative [employer] Other FLUBV Ab CF (S) [Titer] Negative [employer] Other Vital Signs Date Time Vital Sign Value Performing Clinician Facility 04-25-2024 16:40-0400 Body height 157.48 cm II Jasvir León Work Phone: [facility] 04-25-2024 13:31-0400 Diastolic blood pressure 69 mm[Hg] II Jasvir León Work Phone: [facility] 04-25-2024 13:31-0400 Heart rate 76 /min II Jasvir León Work Phone: [facility] 04-25-2024 13:31-0400 Systolic blood pressure 157 mm[Hg] II Jasvir León Work Phone: [facility] 04-25-2024 12:00-0400 Inhaled oxygen flow rate 3 L/min II Jasvir León Work Phone: [facility] 04-25-2024 08:00-0400 Body temperature 97.7 [degF] II Jasvir León Work Phone: [facility] 04-25-2024 08:00-0400 Respiratory rate 22 /min II Jasvir León Work Phone: [facility] 04-25-2024 08:00-0400 SaO2% (BldA) [Mass fraction] 98 % II Jasvir León Work Phone: [facility] 04-25-2024 02:25-0400 Body weight 75.2 kg II Jasvir León Work Phone: [facility] 08-07-2023 10:53-0500 Diastolic blood pressure 64 mm[Hg] Kd Hines MD [facility] 08-07-2023 10:53-0500 Heart rate 109 /min Kd Hines MD [facility] 08-07-2023 10:53-0500 Respiratory rate 18 /min Kd Hines MD [facility] 08-07-2023 10:53-0500 SaO2% (BldA) [Mass fraction] 90 % Kd Hines MD Work Phone[facility] 08-07-2023 10:53-0500 Systolic blood pressure 94 mm[Hg] Kd Hines MD [facility] Phone: [facility] 06-06-2021 12:45-0500 Body height 157.48 cm Mariam Ward Other [employer] Other 06-06-2021 12:45-0500 Body mass index (BMI) [Ratio] 34.75 kg/m2 Mariam Ginty Other [employer] Other 06-06-2021 12:45-0500 Body temperature 96.8 [degF] Mariam Ginty Other [employer] Other 06-06-2021 12:45-0500 Body weight 86.18 kg Mariam Ginty Other [employer] Other 06-06-2021 12:45-0500 Diastolic blood pressure 78 mm[Hg] Mariam Ginty Other [employer] Other 06-06-2021 12:45-0500 SaO2% (BldA) [Mass fraction] 94 % Mariam Ginty Other [employer] Other 06-06-2021 12:45-0500 Systolic blood pressure 131 mm[Hg] Mariam Ginty Other [employer] Other Encounters Encounter Date Encounter Type Care Provider Facility Start: 04-29-2024 End: 04-29-2024 Telephone encounter Rosina GREER Work Phone: [facility] Start: 04-25-2024 End: 04-25-2024 Evaluation and management of inpatient II Jasvir León Work Phone: [facility] Work Phone: Start: 02-18-2024 End: 02-18-2024 ambulatory JASVIR LEÓN Not Available Start: 01-07-2024 End: 01-07-2024 ambulatory [facility] Start: 12-26-2023 End: 12-26-2023 ambulatory JASVIR LEÓN Not Available Start: 12-07-2023 End: 12-07-2023 ambulatory [facility] Start: 10-09-2023 End: 10-09-2023 ambulatory SARAH Partida JENNIFER Not Available Start: 08-07-2023 End: 08-07-2023 ambulatory [facility] Start: 08-07-2023 End: 08-07-2023 Subsequent hospital visit by physician Kd Hines MD Work Phone: [facility] Start: 08-02-2023 End: 08-02-2023 ambulatory JASVIR LEÓN Not Available Start: 07-30-2023 End: 07-30-2023 ambulatory DAWOOD ALEXANDRE Not Available Start: 06-28-2023 End: 06-28-2023 ambulatory ODALYS Quintero KARAN Not Available Start: 05-29-2023 End: 05-29-2023 ambulatory [facility] Start: 05-23-2023 End: 05-23-2023 ambulatory JASVIR LEÓN Not Available Start: 05-14-2023 End: 05-14-2023 ambulatory [facility] Start: 05-09-2023 ambulatory JASVIR LEÓN [facility] Start: 05-09-2023 End: 05-09-2023 ambulatory [facility] Start: 12-06-2022 ambulatory BRENT PERALTA [...] 12-20-2021 Encounter for preprocedural laboratory examination GRETTA HADLEYCKO [facility] Start: 12-20-2021 End: 12-21-2021 ambulatory GRETTA OMALLEY Facility:[facility] Start: 12-16-2021 End: 12-17-2021 ambulatory GRETTA OMALLEY Facility:[facility] Start: 12-16-2021 End: 12-17-2021 Encounter for preprocedural laboratory examination GRETTA OMALLEY Facility:[facility] Start: 06-06-2021 End: 06-06-2021 ambulatory Mariam Ginty Other [employer] Other Start: 06-06-2021 Office outpatient vi sit 15 minutes Mariam Ginty [facility] [place] Procedures Date Procedure Procedure Detail Performing Clinician Start: 04-25-2024 CT angiography of thorax II Jasvir León Work Phone: Start: 11-21-2022 Laboratory test resu lt abnormal Abnormal laboratory test Rosina GREER Work Phone: Plan of Treatment Date Care Activity Detail Author Start: 07-30-2025 Glaucoma screening Diabetes: R etinopathy Screening [facility] Start: 11-19-2024 End: 11-19-2024 Patient encounter procedure 11/19/2024 11:00 AM EDT Office Visit [facility] [address] [place] [phone] Ariel Foss MD [address] [place] [address] [facility] Start: 08-02-2024 Urine screening for protein Diabetes: Urine Protein Screening [facility] Start: 05-19-2024 End: 05-19-2024 Patient encounter procedure 05/19/2024 10:45 AM EST Office Visit [facility] [address] [place] [address] Jasvir León MD [address] [place] [address] [facility] Start: 05-08-2024 End: 05-08-2024 Patient encounter procedure 05/08/2024 11:15 AM EDT Office Visit [facility] [address] [place] [id number] Jasvir León MD [address] [place] [address] [facility] Start: 04-25-2024 [facility] Start: 04-25-2024 Radionuclide myocard ial perfusion stress study NM lissy perf SPECT rest & str [facility] Start: 04-25-2024 Catheterization of l eft heart CL *Left Heart Cath (LHC) [facility] Start: 04-25-2024 Hospital admission [facility] Start: 03-27-2024 Hemoglobin A1c measurement Diabetes: Hemoglobin A1C [facility] Start: 08-07-2023 End: 08-07-2023 Njx dx/ther agt pvrt facet jt lmbr/sac 1 level LUMBAR MEDIAL BRANCH BLOCK Lumbar spondylosis 08/07/2023 10:37 AM [facility] Start: 08-07-2023 End: 08-07-2023 Njx dx/ther agt pvrt facet jt lmbr/sac 2nd level LUMBAR MEDIAL BRANCH BLOCK Lumbar spondylosis 08/07/2023 10:37 AM [facility] Start: 06-04-2023 Annual Wellness Visi t (Medicare) Annual Wellness Visit (Medicare) [facility] Start: 1999 Respiratory Syncytia l Virus (RSV) or age 60 yrs+ (1 - 1-dose 60+ series) Respiratory Syncytial Virus (RSV) or age 60 yrs+ (1 - 1-dose 60+ series) [facility] Start: 1958 DTaP/Tdap/Td vaccine (1 - Tdap) DTaP/Tdap/Td vaccine (1 - Tdap) [facility] Start: 1951 Depression Screen Depression Screen [facility] Start: 1949 Lipid panel Lipids [facility] Oxygen therapy [[facility] Data Set] Initiate Oxygen Therapy Protocol Respiratory Care Routine As Needed until discontinued starting 08/07/2023 [facility] Work Phone: Comment on above: As Needed until disc ontinued starting 08/07/2023 Patient referral [facility] Work Phone: Immunizations Immunization Date Immunization Notes Care Provider Chris green 09-11-2023 zoster vaccine recombinant Rosina Hemmer PA Work Phone: [facility] 06-06-2023 zoster vaccine recombinant Rosina Hemmer PA Work Phone: [facility] 05-21-2023 Pfizer Coleman Cap SARS-CoV-2 Vaccination Rosina Hemmer PA Work Phone: [facility] Work Phone: 05-13-2023 Influenza, Seasonal, Quadrivalent, Adjuvanted Rosina Hemmer PA Work Phone: [facility] 05-16-2021 SARS-CoV-2, Unspecified Zoie n Hemmer PA Work Phone: [facility] 04-29-2021 influenza, high dose seasonal, preservative-free Rosina Hemmer PA Work Phone: [facility] 04-29-2021 Influenza, Seasonal, Quadrivalent, Adjuvanted Rosina Hemmer PA Work Phone: [facility] 08-29-2020 SARS-CoV-2, Unspecified Zoie n Hemmer PA Work Phone: [facility] 07-31-2020 SARS-CoV-2, Unspecified Zoie n Hemmer PA Work Phone: [facility] 03-22-2020 influenza, injectabl e, quadrivalent, preservative free Rosina Hemmer PA Work Phone: [facility] 06-12-2019 zoster vaccine recombinant Rosina Hemmer PA Work Phone: [facility] 03-20-2019 Seasonal trivalent influenza vaccine, adjuvanted, preservative free Rosina Hemmer PA Work Phone: [facility] 03-20-2019 zoster vaccine recombinant Rosina Hemmer PA Work Phone: [facility] 04-22-2018 influenza, high dose seasonal, preservative-free Rosina Hemmer PA Work Phone: [facility] 03-29-2017 influenza, high dose seasonal, preservative-free Rosina Hemmer PA Work Phone: [facility] 08-26-2016 pneumococcal conjuga te vaccine, 13 valent Rosina Hemmer PA Work Phone: [facility] 03-30-2016 influenza, injectabl e, quadrivalent, contains preservative Rosina Hemmer PA Work Phone: [facility] 03-30-2016 influenza, injectabl e, quadrivalent, preservative free Rosina Hemmer PA Work Phone: [facility] 03-25-2015 pneumococcal polysaccharide vaccine, 23 valent Rosina Hemmer PA Work Phone: [facility] 03-25-2015 seasonal influenza, intradermal, preservative free Rosina Hemmer PA Work Phone: [facility] 04-02-2014 seasonal influenza, intradermal, preservative free Rosina Hemmer PA Work Phone: [facility] 03-31-2014 tetanus and diphther ia toxoids, adsorbed, preservative free, for adult use (5 Lf of tetanus toxoid and 2 Lf of diphtheria toxoid) JEWELL León Work Phone: [facility] 03-31-2014 tetanus toxoid, redu seymour diphtheria toxoid, and acellular pertussis vaccine, adsorbed Mariam Ward Other [employer] Other 09-01-2013 tetanus and diphther ia toxoids, adsorbed, preservative free, for adult use (5 Lf of tetanus toxoid and 2 Lf of diphtheria toxoid) JEWELL León Work Phone: [facility] 09-01-2013 tetanus toxoid, redu seymour diphtheria toxoid, and acellular pertussis vaccine, adsorbed Mariam Ginty Other [employer] Other 03-25-2012 zoster vaccine, live Rosina GREER Work Phone: [facility] 04-26-2010 pneumococcal polysaccharide vaccine, 23 valent Rosina GREER Work Phone: [facility] Payers Date Payer Category Payer Self-pay 2022 [employer] ( [employer] others) [id number] 2016 [employer] ( and others) [id number] 2016 () [id number] 2016 [employer] ( and others) [id number] 2004 Medicare MEDICARE [id number] 1959 [facility] ([facility] and others) [id number] 1959 Medicare [id number] 1939 Unknown [id number] 2.16.840.1.646491.3.579.2 .647 1939 Unknown [id number] 2.16.840.1.786454.3.579.2 .593 1939 Unknown [id number] 2.16.840.1.197151.3.579.2 .593 1939 Unknown [id number] 2.16.840.1.909392.3.579.2 .593 1939 Unknown [id number] 2.16.840.1.598857.3.579.2 .593 1939 Unknown [id number] 2.16.840.1.940428.3.579.2 .593 1939 Unknown [id number] 2.16.840.1.023520.3.579.2 .593 1939 Unknown [id number] 2.16.840.1.952605.3.579.2 .593 1939 Unknown [id number] 2.16.840.1.844831.3.579.2 .593 1939 Unknown [id number] 2.16.840.1.704229.3.579.2 .593 1939 Unknown [id number] 2.16.840.1.956101.3.579.2 .593 1939 Unknown [id number] 2.16.840.1.409949.3.579.2 .593 1939 Unknown [id number] 2.16.840.1.282290.3.579.2 .593 1939 Unknown [id number] 2.16.840.1.949758.3.579.2 .593 1939 Unknown [id number] 2.16.840.1.120251.3.579.2 .593 1939 Unknown [id number] 2.16.840.1.225651.3.579.2 .754 1939 Unknown [id number] 2.16.840.1.532871.3.579.2 .754 1939 Unknown [id number] 2.16.840.1.261283.3.579.2 .754 1939 Unknown [id number] 2.16.840.1.766298.3.579.2 .754 1939 Unknown [id number] 1940 Unknown [id number] .1259 1940 Unknown [id number] .1259 1940 Unknown [id number] .1259 1940 Unknown [id number] .1259 1940 Unknown [id number] .1259 1940 Unknown [id number] .1259 Medicare [id number] Unknown [id number] .531 Social History Date Type Detail Facility Start: 04-11-2023 End: 05-30-2023 Sex Assigned At [facility] Other Start: 12-11-2022 End: 05-08-2023 Tobacco smoking status NHIS Ex-smoker [facility] Phone: End: 07-09-1996 History of tobacco use Current smoker [facility] Phone: End: 07-09-1996 History of tobacco use Cigarette Smoker [facility] Phone: Start: 12-11-2022 End: 05-08-2023 Tobacco use and exposure Smokeless tobacco non-user [facility] Phone: Start: 05-30-2023 Alcohol intake Ex-drinker (finding) [facility] Phone: Start: 04-11-2023 End: 05-30-2023 History of Social function [facility] Phone: Start: 05-08-2023 Alcohol Comment social [facility] Phone: Start: 1940 Sex Assigned At Not on file [facility] Work Phone: Start: 1940 Sex Assigned At Female F [facility] Start: 04-28-2024 Alcoholic beverage intake Current drinker of alcohol (finding) [facility] Start: 04-11-2023 Alcohol Comment 1-2 drinks 2-4 times a month,,caffeine intake: 2-3 cups per day [facility] Medical Equipment Procedure Code Equipment Code Equipment Origin al Text Equipment Identifier Dates Kyphon Tim Bone [employer]ement [id number]_[facility] Start: 05-09-2023 Comment on above: Description: T12 Ref# [id number] by In Vitro route [id number] 1 each by Other route in the morning and 1 each in the evening and 1 each before bedtime. Use as instructed. [id number] Start: 06-29-2023 End: 06-28-2024 Goals Date Patient Goal Desired Activity /State Clinical Notes 06-06-2021 to 04-29-2024 Telephone Encounter - ZOEY An - 04/29/2024 4:55 PM EDTTelephone Encounter - ZOEY An - 04/29/2024 4:55 PM EDT Note Date & Type Note Facility 04-29-2024 Telephone encounter Note Form atting of this note might be different from the original. [facility] requesting clarification on dispense amount for insulin. Resent with correct amount to dispense. [facility] 04-29-2024 Miscellaneous Notes Formattin g of this note might be different from the original. [facility] requesting clarification on dispense amount for insulin. Resent with correct amount to dispense. documented in this encounter [facility] 04-25-2024 Consult note Note Date/Time April 25, 2024 12:10pm [facility] [address] [place] [address] Cardiology Consult Note Signed with Addenda Patient: Jenni Quinones MR#: [id number] : 1940 Acct:[id number] Age/Sex: 84 / F Adm Date: 4 Loc: Room: [address] [place] [address] Type: ADM IN Attending Dr: Javan Gruber MD Copies to: MD Jasvir Marx II, MD W Scott Sheldon, DO~ ADDENDUM1 Addendum: Lexiscan stress test this afternoon completely normal perfusion; patient is clear for discharge to follow-up with general cardiology Addendum Documented By: Ingrid Haynes DO 04/25/24 1615 Addendum Signed By: <Electronically signed by Ingrid Haynes DO> 04/25/24 1615 Cardiology HPI History of Present Illness Consult Date: 04/25/24 Reason for Consult: Chest pain/angina HPI: Ms. Quinones is a 84 year old female seen in interventional cardiology consultation at request the hospitalist and ER nurse practitioner at [facility] after discussion last night. Patient was transferred here under my direction for further assessment and management. She was watching the [employer] baseball game, became very excited and experienced retrosternal chest discomfort that abated after arrival to the emergency room after being directed by her family togo to the ER for her discomfort. Initial ECGs revealed atrial fibrillation withnonspecific ST changes, initial troponin was negative. Patient has a history of chronic atrial fibrillation, aortic valve replacement in [place], followed by Dr. Nova. She has previous INR on anticoagulation but sustained life-threatening retroperitoneal bleed at 1 point in never has been on anticoagulation since then. There is no history of coronary disease or coronary revascularization or myocardial infarction Past medical history and comorbidities are noted for type 2 diabetes, essential hypertension, atrial fibrillation, and aortic valve replacement. Currently ECG reveals A-fib with excellent rate control at 75 beats a minute, inferior and lateral ST abnormality; troponins are negative x 3; echocardiogram pending. VANESSA risk score is 3 based on age, presentation, EKG changes; (2 out of 3 risk factors) Risk, benefits alternatives and informed decision-making process performed with patient for 30 minutes this morning, she prefers to proceed with conservative approach and therefore Lexiscan stress imaging will proceed today. If normal, she can be discharged to follow-up with her primary dialysis patient care technician. [facility] Medical History (Updated 04/25/24 @ 04:15 by Lalo Carter DO) Thumb laceration Sinusitis chronic, frontal Shortness of breath Hypertension GERD (gastroesophageal reflux disease) Type 2 diabetes mellitus Depression Congestive heart failure Aortic insufficiency Anxiety Surgical History (Updated 04/25/24 @ 12:07 by Ingrid Haynes DO) History of aortic valve replacement with porcine valve History of arthroscopy of left knee History of hysterectomy History of cholecystectomy History of cardiac cath History of foot surgery History of surgery on arm Family History Father Family/Other Legacy Famx Problem: 2 Mother Sister Social History Smoking Status: Former smoker Tobacco Type: cigarettes Meds Medications and Allergies Allergies codeine Allergy (Unknown, Verified 10/16/23 10:57) abdominal pain Penicillins Allergy (Unknown, Verified 10/16/23 10:57) rash Home Medications aspirin 81 mg tablet,delayed release 81 mg PO DAILY 10/16/23 [History Confirmed 04/25/24] atorvastatin 20 mg tablet 20 mg PO DAILY 10/16/23 [History Confirmed 04/25/24] bupropion HCl 150 mg tablet,12 hr sustained-release 150 mg PO BID 10/16/23 [History Confirmed 04/25/24] carvedilol 12.5 mg tablet 12.5 mg PO BID 10/16/23 [History Confirmed 04/25/24] digoxin 125 mcg (0.125 mg) tablet 0.125 mg PO .COMPLEX 10/16/23 [History Confirmed 04/25/24] escitalopram oxalate 10 mg tablet 10 mg PO DAILY 10/16/23 [History Confirmed 04/25/24] gabapentin 100 mg capsule 100 mg PO TID 10/16/23 [History Confirmed 04/25/24] insulin lispro protamine-lispro 100 unit/mL (75-25) subcutaneous pen 8 unit subcut BID 10/16/23 [History Confirmed 04/25/24] omeprazole 40 mg capsule,delayed release 40 mg PO DAILY 10/16/23 [History Confirmed 04/25/24] ropinirole 0.25 mg tablet 0.25 mg PO QHS 10/16/23 [History Confirmed 04/25/24] torsemide 20 mg tablet 20 mg PO DAILY 10/16/23 [History Confirmed 04/25/24] alprazolam 0.25 mg tablet 0.25 mg PO Q6HR PRN anxiety 04/25/24 [History Confirmed 04/25/24] empagliflozin 10 mg tablet (Jardiance) See Rx Instructions PO DAILY 04/25/24 [History Confirmed 04/25/24] lidocaine 4 % topical patch (Aspercreme (lidocaine)) 1 patch topical BID 04/25/24 [History Confirmed 04/25/24] oxycodone-acetaminophen 5 mg-325 mg tablet 1 tab PO Q6HR PRN pain 04/25/24 [History Confirmed 04/25/24] spironolactone 25 mg tablet 25 mg PO DAILY 04/25/24 [History Confirmed 04/25/24] Exam Physical Exam Vital Signs: Temp Pulse Resp BP Pulse Ox O2 Del Method O2 Flow Rate 97.7 F 80 22 139/68 98 Nasal Cannula 3 04/25/24 08:00 04/25/24 08:00 04/25/24 08:00 04/25/24 08:00 04/25/24 08:00 04/25/24 09:02 04/25/24 09:02 Const General: cooperative, healthy appearing, comfortable and no acute distress Orientation: alert, awake and oriented x3 HEENT Head: normal to inspection Neck Neck: normal visual inspection Chest Chest palpation & inspection: normal inspection of the chest Resp Effort & Inspection: normal respiratory effort Auscultation: clear to auscultation bilaterally Cardio Rhythm: abnormal rhythm Heart Sounds: S1 normal, S2 normal and murmur Bruits: no carotid bruits Pulses: radial pulses present GI Palpation: soft Skin General: no rashes or lesions noted Neuro General: patient alert, patient awake and patient oriented x3 Cognition: normal cognition Speech: speech normal Extrem General: no clubbing, cyanosis or edema VANESSA Risk Score VANESSA Risk Score Predictor Historical: Age > 65 Years Old Presentation: Recent (>/=24hr) Angina and ST Deviation >/=0.05mV Score Risk Score (0-7): 3 Results: 3 Results - Cardiology Labs 04/25/24 03:44 04/25/24 03:44 Lab results: Cardiac Enzymes 04/25/24 Range/Units 03:44 AST 13 (13-39) U/L Lipids 04/25/24 Range/Units 03:44 Triglycerides 92 (0-149) mg/dL Cholesterol 88 L (140-200) mg/dL HDL Cholesterol 34 (23-92) mg/dL Cholesterol/HDL Ratio 2.6 (<5.0) CBC 04/25/24 Range/Units 03:44 RBC 3.18 L (3.60-5.00) X10E6/uL Hgb 9.4 L (11.8-15.4) g/dL Hct 28.8 L (34.0-46.4) % Plt Count 273 (150-450) x10E3/uL Neut # (Auto) 7.1 (1.8-7.7) x10E3/uL Lymph # (Auto) 0.7 L (1.00-4.8) x10E3/uL [place] # (Auto) 0.8 (0.0-0.8) x10E3/uL Eos # (Auto) 0.3 (0.0-0.45) x10E3/uL Baso # (Auto) 0.1 (0.0-0.2) x10E3/uL Comprehensive Metabolic Panel 04/25/24 Range/Units 03:44 Sodium 138 (136-145) mmol/L Potassium 5.2 H (3.5-5.1) mmol/L Chloride 102 (98-107) mmol/L Carbon Dioxide 30.3 (21.0-31.0) mmol/L BUN 31 H (7-25) mg/dL Creatinine 1.20 (0.60-1.20) mg/dL Glucose 121 H (70-100) mg/dL Calcium 8.4 L (8.6-10.3) mg/dL Direct Bilirubin 0.10 (0.03-0.18) mg/dL Indirect Bilirubin 0.4 mg/dL AST 13 (13-39) U/L ALT 7 (7-52) U/L Alkaline Phosphatase 78 (34-104) U/L Total Protein 6.4 (6.4-8.9) gm/dL Albumin 3.1 L (3.5-5.7) gm/dL Intake and Output 04/24/24 04/25/24 04/25/24 23:59 07:59 15:59 Other: # Unmeasured Voids 1 Weight 75.2 kg Date of Last Bowel Movement 04/24/24 04/24/24 Patient Weight 04/25/24 23:59 Weight 75.2 kg Lab 04/25/24 03:44 PT 12.9 INR 1.1 APTT 30.0 EKG Interpretations EKG EKG shows: atrial fibrillation Blocks, axis, hypertrophy, ST abn Repolarization changes or abnormalities: nonspecific abnormality, ST segment, and/or T wave A&P - Cardiology (1) Chest pain: Code(s): R07.9 - Chest pain, unspecified (2) Type 2 diabetes mellitus: Code(s): E11.9 - Type 2 diabetes mellitus without complications (3) Acute electrocardiogram changes: Code(s): R94.31 - Abnormal electrocardiogram [ECG] [EKG] Plan See above, proceed with Lexiscan stress imaging Documented By: Ingrid Haynes DO 04/25/24 1159 Signed By: <Electronically signed by Ingrid Haynes DO> 04/25/24 120 [facility] Work Phone: 1(862) 789-428110-18-2024 History and physical note Author Lalo Carter [facility] April 25, 2024 4:19am Note Date/Time April 25, 2024 4 :10am [facility] [address] [place] [id number] Hospitalist H&P Signed Patient: Jenni Quinones MR#: [id number] : 1940 Acct:[id number] Age/Sex: 84 / F Adm Date: 4 Loc: Room: 6E9606-1 Type: ADM IN Attending Dr: Lalo Carter DO Copies to: MD Lalo Padilla II, DO~ HPI DATE OF EXAMINATION: 04/25/24 CHIEF COMPLAINT: Chest pain with radiation to the jaw and shortness of breath and EKG change HISTORY OF PRESENT ILLNESS: This is an 84-year-old woman who presented to the [facility] emergency room. The ER over there had gotten a hold of cardiology on-call with Dr. Haynes regarding EKG changes especially in aVL with inferior depression pattern and so it was recommended that the patient be transferred here to [facility] for cardiology evaluation. The patient is currently in a penitentiary facility working with physical therapy and getting stronger after having off fall and left lower rib cage fractures. That happened on April 11. On she was watching the baseball game with her family members. While doing that at rest she got a severe sensation of tightness and squeezing in her chest. This radiated up to both parts of her neck and jaw. This hurt her great deal the lower face and even hurt both ears. Was accompanied by a lot of pressure sensation on the leftside of her chest and a sensation of shortness of breath and some cool diaphoresis and nausea per the patient's report. All of this lasted 20 minutes. At the [facility] emergency room a chest x-ray showed what they thought was left lower lobe pneumonia. That is in the region where the ribs are fractured. Her CBC was normal. They gave her Rocephin and Zithromax. They also did give her 325 mg of aspirin. She does have a history of atrial fibrillation. She is on digoxin for rate control. She is not on any anticoagulation. A few years ago she had a very severe problem with retroperitoneal bleeding so she is not anticoagulated. She tells me that she follows with cardiology with Dr. Josefina Nova from the [facility], to [place]. 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 She has been told that there is something just not quite right about that aortic valve, but she cannot explain what the dialysis patient care technician were looking at. When I asked her if she got cardiac catheterization and planning for the aortic valve replacement the patient does not recall getting this. Review of Systems Review of Systems Review of systems: 10 systems are reviewed and are negative except as mentioned elsewhere in the documentation. [facility] Medical History (Updated 04/25/24 @ 04:15 by Lalo Carter DO) Thumb laceration Sinusitis chronic, frontal Shortness of breath Hypertension GERD (gastroesophageal reflux disease) Type 2 diabetes mellitus Depression Congestive heart failure Aortic insufficiency Anxiety Surgical History (Updated 04/25/24 @ 04:14 by Lalo Carter DO) History of aortic valve replacement with porcine valve History of arthroscopy of left knee History of hysterectomy History of cholecystectomy History of cardiac cath History of foot surgery History of surgery on arm Family History Father Family/Other Legacy FamHx Problem: 2 Mother Sister Social History Smoking Status: Former smoker Tobacco Type: cigarettes Meds Medications and Allergies Allergies codeine Allergy (Unknown, Verified 10/16/23 10:57) abdominal pain Penicillins Allergy (Unknown, Verified 10/16/23 10:57) rash Home Medications aspirin 81 mg tablet,delayed release 81 mg PO DAILY 10/16/23 [History Confirmed 04/25/24] atorvastatin 20 mg tablet 20 mg PO DAILY 10/16/23 [History Confirmed 04/25/24] bupropion HCl 150 mg tablet,12 hr sustained-release 150 mg PO BID 10/16/23 [History Confirmed 04/25/24] carvedilol 12.5 mg tablet 12.5 mg PO BID 10/16/23 [History Confirmed 04/25/24] digoxin 125 mcg (0.125 mg) tablet 0.125 mg PO .COMPLEX 10/16/23 [History Confirmed 04/25/24] escitalopram oxalate 10 mg tablet 10 mg PO DAILY 10/16/23 [History Confirmed 04/25/24] gabapentin 100 mg capsule 100 mg PO TID 10/16/23 [History Confirmed 04/25/24] insulin lispro protamine-lispro 100 unit/mL (75-25) subcutaneous pen 8 unit subcut BID 10/16/23 [History Confirmed 04/25/24] omeprazole 40 mg capsule,delayed release 40 mg PO DAILY 10/16/23 [History Confirmed 04/25/24] ropinirole 0.25 mg tablet 0.25 mg PO QHS 10/16/23 [History Confirmed 04/25/24] torsemide 20 mg tablet 20 mg PO DAILY 10/16/23 [History Confirmed 04/25/24] alprazolam 0.25 mg tablet 0.25 mg PO Q6HR PRN anxiety 04/25/24 [History Confirmed 04/25/24] empagliflozin 10 mg tablet (Jardiance) See Rx Instructions PO DAILY 04/25/24 [History Confirmed 04/25/24] lidocaine 4 % topical patch (Aspercreme (lidocaine)) 1 patch topical BID 04/25/24 [History Confirmed 04/25/24] oxycodone-acetaminophen 5 mg-325 mg tablet 1 tab PO Q6HR PRN pain 04/25/24 [History Confirmed 04/25/24] spironolactone 25 mg tablet 25 mg PO DAILY 04/25/24 [History Confirmed 04/25/24] Exam Physical Exam Vital Signs: Temp Pulse Resp BP Pulse Ox O2 Del Method O2 Flow Rate 98.2 F 81 22 122/56 L 98 Nasal Cannula 3 04/25/24 02:25 04/25/24 03:54 04/25/24 03:54 04/25/24 03:54 04/25/24 03:54 04/25/24 03:54 04/25/24 03:54 Narrative: GEN: Awake, alert, oriented x 3. Head: Normal Cephalic, Atraumatic. Eyes: Conjunctiva and sclera clear bilaterally. Nose: External nose and nares normal bilaterally. Mouth: Lips and tongue normal. Neck: No JVD. No thyromegaly. No lymphadenopathy. Lungs: Clear to auscultation bilaterally, no wheezing, no crackles. No cough. Heart: A-Fib on the monitor, rate controlled at 77 BPM, irregular rhythm, 2+ aortic valve murmur, with rubs, or gallops to auscultation. Abdomen: Soft, normal bowel sounds, no rigidity, guarding, or acute peritoneal signs. Extremities: No swelling or cords in the calves bilaterally, mild +1 pitting edema in the ankles bilaterally. Skin: No systemic rashes or lesions. Psychiatric: Calm. Conversant. Cooperative. Neuro: Awake, Alert, and Oriented x 3. No focal or lateralizing deficits. Assessment & Plan Assessment/Plan (1) Chest pain: (2) Acute electrocardiogram changes: (3) Fracture of rib of left side: (4) Hypertension: (5) GERD (gastroesophageal reflux disease): (6) Type 2 diabetes mellitus: Plan Assessment: Presentation to the [facility] with chest pain with radiation to the jaw and shortness of breath and nausea and diaphoresis concerning for acute coronarysyndrome. EKG changes with some depression but no afua STEMI on EKG. 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 Atrial fibrillation. Not anticoagulated due to severe retroperitoneal hematoma in the past. Diabetes mellitus type 2. GERD. Gout. Currently recovering from left lower lobe rib fractures after a fall on April 11 at a penitentiary facility in [place]. Plan: Hospital admission, inpatient status. N.p.o. for cardiac catheterization in the morning. Consult cardiology with Dr. Haynes. Check echocardiogram especially to evaluate the aortic valve. Checking a troponin now and in about 3 hours. Since I do not appreciate any cough or any acute infectious symptoms I would notprovide antibiotics. The patient did get a dose of Zithromax and Rocephin at the outside hospital. Will recheck LLL rib fractures with a PA and lateral chest x-ray. Further adjustments to the plan of care will be made by my hospitalist colleaguetaking over during the morning hours. IP vs OBS Justification Based on differential dx, clinical care plan, and risk of adverse events, if untreated, in my clinical judgement this patient requires an acute care setting as: INPATIENT because of an expectation of an over 2 midnight stay. Estimated length of stay (# of days): 3 Documented By: Lalo Carter DO [id number] Signed By: <Electronically signed by Lalo Carter DO> 04/25/24 0419 [facility] Work Phone: 1(278) 882-327807-01-2024 NoteUT Cardiology - [facility] Subjective Jenni Quinones is a 83 y.o. 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 [facility] II-III Pt is close to euvolemia via assessment today[facility] 12-07-2023 Noteaortic valve replacement with a 23 mm trifecta tissue valve: 2016 Elevated doppler flows noted and severe AO stenosis- will repeat TTE a 6 months to re-evalaute. RTC with Dr Nova D/W pt about red flag symptoms to call 911 and/or office- increased SOB, Palpitations, syncope, chest pain or any concerns and she voiced understanding Continue all medications as prescribedUnWadsworth-[facility] 12-07-2023 NoteRepeat TTE in 6 months Pt denied any worsening symptoms since DC from [facility] and diuresisUnWadsworth-Rittman Hospital05-31-2024 NoteStable, will monitor with routine echocardiogram in 6 monthsWV[facility]-31-2024 NoteUTP CARDIOLOGY PROGRESS NOTE HPI: Jenni Quinones is a 83 y.o. female here for routine f/U and review of TTE and ED f/U Patient here for 6 mo follow up aortic and mitral valve stenosis, diastolic heart failure, and permanent afib. She had an echo last month. She presented to [facility] ED a few weeks ago for [...] She has history of prior admissions to [facility] with AF/RVR and diastolic heart failure decompensation. She has normal coronary angiogram in 2016. Patient here for 6 mo follow up aortic and mitral valve stenosis, diastolic heart failure, and permanent afib. She had an echo last month. She presented to [facility] ED a few weeks ago for [...] initiated. Patient agrees this plan. Emergency Department [facility] 5 Patient name: JENNI QUINONES Laboratory reviewed and noted. Her troponin is [...] and are negative Previous HPI per Dr Nova SHERRY Arteaga is seen in follow-up. She is a [...] She has history of prior admissions to [facility] with AF/RVR and diastolic heart failure [...] flows across the biop (more content not included)...[facility]05-31-2024 NotePatient here for 6 mo follow up aortic and mitral valve stenosis, diastolic heart failure, and permanent afib. She had an echo last month. She presented to [facility] ED a few weeks ago for [...] weakness. All other systems reviewed and are negative.[facility] 12-07-2023 NoteContinue to monitor AO valve with repeat TTE in 6 months [facility]01-30-2024 History of Present illness Narrative* Carole Loyola LPN - 08/07/2023 10:57 AM EST Pt alert and oriented. Denies pain at this time. Dressings at injection site clean and dry. Discharge instructions reviewed, no questions or concerns voiced. documented in this encounterWKEVIN Work Phone: 1(143) 312-191301-29-2024 Hospital Discharge instructions* Discharge Instructions* Carole Loyola LPN - 08/06/2023 3:[address] Hines Post Procedure Discharge Instructions for Pain Management [...] vomiting - Difficulty breathing or swallowing CALL 911 Other Instructions: - You should have a follow-up appointment scheduled already or a follow-up plan in place prior to leaving. - Call the office if you develop any problems or have any questions at: [facility] [phone] or Our 24 hour help line is also available: [phone] ([phone]) If you need refills,or have questions / concerns, outside of our office hours Sunday 8:00 a.m - 4:30 p.m. at [facility], please call [phone] to speak to Constance STEINER or leave a voicemail for her. *Remember to allow at least 48 business hours for medication refill requests. documented in this encounterWYANDOT Work Phone: 1(808) 549-330111-06-2023 NoteCardiology Clinic Note Subjective Jennijorge alberto Quinones is a 83 y.o. year old female [...] of iron deficiency Heart valve transplanted Hyperthyroidism penitentiary current use of anticoagulant therapy Mixed anxiety [...] Not Currently Drug use: Never HPI Jenni Quinones is a 82 y.o. female here for [...] edema Review of Syste (more content not included)...[facility]11-06-2023 NotePatient here for 6 mo follow up chronic diastolic heart failure, PAF, and hx aortic valve replacement. Dr. Nova increased torsemide to 60mg daily in January [...] numbness. All other systems reviewed and are negative.[facility] 06-08-2022 NoteHISTORY AND PHYSICAL EXAMINATION Date:06/07/2022 HISTORY: The patient [...] risk and go forward with her elective procedure.[facility] [id number] NoteOPERATIVE NOTE OPERATION DATE: 06/08/2022 SURGEON: Dawood Alexandre D.O. PREOPERATIVE DIAGNOSIS: Nuclear sclerotic cataract right [...] ensuring mobility, phacoemulsification was performed in a svnryhg-luw-aexcvu-type fashion. After all nuclear material had been [...] follow up the following day for postoperative care.[id number] NoteOPERATIVE NOTE OPERATION DATE: 04/13/2022 SURGEON: Dawood Alexandre M.D. PREOPERATIVE DIAGNOSIS: Nuclear sclerotic cataract left [...] ensuring mobility, phacoemulsification was performed in a wbluypp-zbd-upypje-type fashion. After all nuclear material had been [...] follow up the following day for postoperative care.[facility] [id number] NoteHISTORY AND PHYSICAL EXAMINATION Date:04/12/2022 HISTORY: The patient [...] risk and go forward with her elective procedure.[facility] [id number] Evaluation note* Encounter Date Diagnosis Assessment Notes Treatment Notes Treatment Clinical Notes May, Contact with and (suspected) exposure [...] to keep fluids or food down, persistent vomiting/diarrhea ), abdominal pain, lethargy, severe headache. Patient verbalizes understanding and is agreeable to treatment plan May, Other Additional time spent conducting pre-visit phone call, screening for symptoms, instructions on social distancing, application and removal of PPE, and cleaning of examination room, equipment and supplies was preformed. Patient education given for testing methodology and results. Patient care instructions given in writting by [facility] document [employer] Other Evaluation note* Diagnosis Lumbar spondylosis- Primary Lumbosacral spondylosis without myelopathy documented in this encounter [facility] Work Phone: evaluation note* Diagnosis Onset Date Resolution Status Acute electrocardiogram changes acute Chest pain acute Fracture of rib of left side acute GERD (gastroesophageal reflux disease) acute Hypertension acute Type 2 diabetes mellitus acu te [facility] Work Phone: Evaluation note* Diagnosis Diabetes mellitus with peripheral vascular disease (CMS/HCC) documented in this encounter [facility] N[facility]ative - Reported* Type Description Date [...] see above list Hospitalization History chf x3 [employer] Other Hospital Discharge instructions Additional Instructions [facility] facility to manage care: DNR [facility] no intubation PT/OT to eval and treat Routine vital signs Maintain high risk falls precautions Monitor cardio assessment -- angina Care to be managed by SNF provider [facility] Work Phone: Summary Purpose Family History No Family History Records Found Relationship Condition Age at Onset Recorded Date/T yoly father Unknown family member Unknown mother Unknown sister Unknown Advance Directives No Advanced Directives Records FoundLatest Code Status on File Code Status Date Activated Date Inactivated Comments Full Code 08/07/2023 10:11 AM Code Status History Code Status Date Activated Date Inactivated Comments Full Code 05/29/2023 7:56 AM 05/29/2023 10:26 AM Full Code 05/09/2023 9:08 AM 05/09/2023 12:32 PM Advance Directive Response Recorded Date/ Time Advance Directives No October 15 10:51am Chief Complaint and Reason for Visit Chief Complaint pneumonia, chest hernandez n, ekg changes Reason for Visit Acute electrocardiog ana changes Chest pain Fracture of rib of left side GERD (gastroesophageal reflux disease) Hypertension Type 2 diabetes mellitus Additional Source Comments INFORMATION SOURCE (unrecogn ized section and content) DATE CREATED AUTHOR 08/19/2021 [facility] dical Specialist DATE CREATED AUTHOR AUTHOR'S ORGANIZ ATION 12/26/2021 [facility] DATE CREATED AUTHOR AUTHOR'S ORGANIZ ATION 12/15/2022 [facility] DATE CREATED AUTHOR AUTHOR'S ORGANIZ ATION 05/18/2023 [facility] DATE CREATED AUTHOR AUTHOR'S ORGANIZ ATION 08/08/2023 [facility] DATE CREATED AUTHOR AUTHOR'S ORGANIZ ATION 01/08/[address] [facility] DATE CREATED AUTHOR AUTHOR'S ORGANIZ ATION 02/19/2024 [facility] dical Specialists EPIC DATE CREATED AUTHOR AUTHOR'S ORGANIZ ATION 05/03/2024 [facility] REASON FOR VISIT (unrecogniz ed section and content) Specialty Diagnoses / Procedures Referred By Contac t Referred To Contact Diagnoses Lumbar spondylosis Lumbar spondylosis [M47.816] Procedures NM NJX DX/THER AGT PVRT FACET JT LMBR/SAC 1 LEVEL NM NJX DX/THER AGT PVRT FACET JT LMBR/SAC 2ND LEVEL B/L LUMBAR MEDIAL BRANCH BLOCK L3 L4 L5 B/L LUMBAR MEDIAL BRANCH BLOCK L3 L4 L5 Kd Hines MD [address] [place] [address] [facility] Phone: [phone] Referral ID Status Reason Start Date Expiration Date Visits Re quested Visits Authorized [id number] 1 1 PRN Active and Recently Administ ered Medications (unrecognized section and content) Medication Order 08/05/2023 08/06/2023 08/07/2023 BUPivacaine (PF) (MARCAINE) 0.5 % injection (CANCELED) PRN, Starting on Sun08/07/23 at 0957, Until Sun08/07/23 at 1048, Intra-op 0957 (Given - Provid er: Kd Hines MD - Comment: Dose amount per Dr. Hines) lidocaine 1% (buffered) injection (CANCELED) PRN, Starting on Sun08/07/23 at 0957, Until Sun08/07/23 at 1048, Intra-op 0957 (Given - Provid er: Kd Hines MD - Comment: Dose amount per Dr. Hines) Care Teams (unrecognized sec tion and content) Sand Caster Apprentice Relationship Specialty Start Date End Date Jasvir León MD [address] [facility] [address] [place] [address] PCP - General Internal Medicine 05/07/23 Team Status: Active Member Role Status Dates Jasvir León II MD Primary Care Provider Active Team Status: Inactive Member Role Status Dates Jasvir León II MD Primary Care Provider Active Start: April 25, 2024 End: April 25, 2024 Lalo Carter DO Admit Provider Active Start: April 25, 2024 End: April 25, 2024 Javan Gruber MD Attending Provider Active St art: April 25, 2024 End: April 25, 2024 Sand Caster Apprentice Relationship Specialty Start Date End Date Jasvir León MD [address] [facility] [address] [place] [address] PCP - General Internal Medicine 11/20/22 Jasvir León MD [address] [facility] [address] [place] [address] PCP - ACO Reach 11/30/22 FOR RECORDS PERTAINING TO PATIENTS WHO ARE [...] BE BASED ON THE PRIMARY CLINICAL RECORDS. [facility] [employer] [facility]. provides no warranty or guarantee of the accuracy or completeness of information in this document.
== END 2024-05-07 09:55 | disposition home or self-care (01) ==
LOC: CARD 09:54
PROVIDERS: PCP Internal Medicine; Visit Provider Internal Medicine Interventional Cardiology
DX: I50.32 Chronic diastolic (congestive) heart failure (principal); I27.20 Pulmonary hypertension, unspecified
CPT/HCPCS: 93306

== ENCOUNTER 2024-05-26 12:13 | Outpatient (OUT) | payer MEDICARE, OTHER, SELFPAY ==
--- OUTSIDE RECORDS SUMMARY | 2024-05-26 12:30 | XMS_ITS | CCD ---
Author Organization [facility] Care Team Providers Care 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 Name Role Phone GRETTA OMALLEY Admitting Unavailable [...] HOY ., DR MEJIA Primary Care Unavailable HOAlexey ., DR MEJIA Consulting Unavailable PAY ., DR TESFAYE Consulting Unavailable SHAIKH Selam SCHMIDT Consulting Unavailable JENNY MARQUEZ Consulting Unavailable KHARI, DR ISRAEL Primary Care Unavailable NICK ., DR CORNEJO [...] Consulting Unavailable VANESSA DALLAS Consulting Unavailable BRENT ZAIDI Consulting Unavailable KHARI, DR ISRAEL Primary Care Unavailable ELSIE ., DR MEJIA Attending Unavailable HOY ., DR MEJIA Admitting Unavailable HOAlexey ., DR MEJIA Consulting Unavailable HAY ., DR CORNEJO Consulting Unavailable SADIE GARCIA Consulting Unavailable MEENA WOOTEN Consulting Unavailable AMANDA DANIELS Consulting Unavailable FELIPA ARANDA Consulting Unavailable GRETTA OMALLEY Consulting Unavailable SHAHRAM, GRETTA Attending Unavailable SHAHRAM, GRETTA Admitting Unavailable KHARI, DR ISRAEL Primary Care Unavailable BRENT ZAIDI Consulting Unavailable BRENT ZAIDI Attending Unavailable DYAN, BRENT Admitting Unavailable LEÓN, DR ISRAEL Primary Care Unavailable DYAN, BRENT Consulting Unavailable DYANFILIBERTO TOWNSENDA Attending Unavailable DYAN, BRENT Admitting Unavailable KHARI, DR ISRAEL Primary Care Unavailable YRIS, FARZANEH Consulting Unavailable YRIS, FARZANEH Attending Unavailable ELSIE ., DR MEJIA Primary Care Unavailable YRIS, FARZANEH Admitting Unavailable LEÓN, DR ISRAEL Primary Care Unavailable WEST, DR MEENA Boucher Consulting Unavailable VERNA, AHMAD Attending Unavailable VERNA, AHMAD Admitting Unavailable VERNA, AHMAD Consulting Unavailable Jasvir León MD Primary Care Provider KD HINES Admitting Unavailable BAHKD Judd Attending Unavailable JASVIR LEÓN Primary Care Unavailable KD HINES Attending Unavailable JASVIR LEÓN Primary Care Unavailable BAHJAYLAN JuddT M Admitting Unavailable JASVIR LEÓN Primary Care Unavailable BAHKD Judd Attending Unavailable JASVIR LEÓN Primary Care Unavailable JAYLAN HINEST M Admitting Unavailable JEWELL León Primary Care Provider DO Lalo Carter Admit Provider [phone] MD Javan Gruber Attending Provider [phone] Jasvir León MD Primary Care Provider Jasvir León MD Unavailable Isaura Childs Consulting Unavailable Javan Gruber Attending Unavailable Jasvir León Primary Care Unavailable Lalo Carter Admitting Unavailabl Ingrid Hussein Consulting Unavailable Palmira Lowery Consulting Unavailable Jaron Sands Consulting Unavail able Christofer Hairston Consulting Unavailable Juwan Coelho Consulting Unavailab Bridgette Peguero Consulting Unavailable Becky Santiago Consulting Unavailable Marisol Fox Consulting Unavailab Genet Barclay Consulting Unavailable Angella Mac Consulting Unavailable JASVIR LEÓN Attending Unavailable DAWOOD ALEXANDRE Attending Unavailable RALF DOYLE Referring Unavailable JASVIR LEÓN Attending Unavailable SARAH RODRIGUEZ Attending Unavailable JASVIR LEÓN Attending Unavailable JASVIR LEÓN Attending Unavailable ODALYS RUSSO Attending Unavailable JASVIR LEÓN Referring Unavailable JASVIR LEÓN Attending Unavailable FARZANEH ARNDT Attending Unavailable JOSEFINA NOVA Attending Unavailable BRENT ZAIDI Attending Unavailable Allergies Allergy Classification Reported Allergen(s) Allergy Type Date of Onset Reaction(s) Facility (5 sources) Codeine; Translations: [CODEINE] Drug Allergy 4 abdominal pain [facility] Repository (5 sources) Penicillins; Translations: [PENICILLINS] Drug allergy (disorder) [address] [facility] Repository (1 source) penicillian Propensity to adverse reactions rash [employer] [facility] [place] Other (1 source) codiene Propensity to adverse reactions abdominal pain [employer] [facility] [place] Other (2 sources) sacubitril / valsartan Drug Allergy 2 [facility] Repository (5 sources) Codeine Drug Allergy 3 Other (See Comments) [facility] (1 source) Penicillins Propensity to adverse reactions to drug 3 [facility]ita MICHAELS Work Phone: (6 sources) sacubitril / valsartan; Translations: [SACUBITRIL-ARJUN SARTAN] Drug Allergy 2 [facility]ita MICHAELS (4 sources) Penicillin G Drug Allergy 3 Rash, Other [facility] (1 source) Codeine Drug Allergy 4 [facility] Repository (1 source) Penicillins Drug allergy (disorder) 4 [facility] Repository Medications Current Medications Medication Drug Class(es) Dates Sig (Normalized) Sig (Original) acetaminophen 325 mg oral tablet (5 sources) take 1 tablet by mouth every six hours as needed acetaminophen (Tylenol) 325 MG tablet Take 325 mg by mouth every 6 (six) hours if needed. Active take 2 tablets by mo [facility] every six hours as needed for pain acetaminophen (TYLENOL) 325 MG tablet Ta ke 2 tablets by mouth every 6 hours as needed for Pain 0 Active acetaminophen 325 mg / HYDROcodone bitartrate 5 mg oral tablet (3 sources) Opioid Agonist Start: 05-08-2024 End: 05-18-2024 take 1 tablet by mouth every four hours for pain HYDROcodone-acetaminophen ([place]) 5-325 MG tablet Indications: Spinal stenosis at L4-L5 level Take 1 tablet by mouth every 4 (four) hours if needed for severe pain for up to 10 days 60 tablet 05/08/2024 05/18/2024 Active take 1 tablet by codi every six hours as needed for pain HYDROcodone-acetaminophen (NORCO) 5-325 MG per tablet Indications: Pain Take 1 tablet by mouth every 6 hours as needed for Pain. Indications: Pain 0 Active acetaminophen 325 mg / oxyCODONE hydrochloride 5 mg oral tablet (1 source) Opioid Agonist Start: 04-25-2024 take 1 tablet by mouth every six hours Oxycodone-Acetaminophen Active 1 TAB PO Every 6 hours April 25, 2024 12:00am ALPRAZolam 0.25 mg oral tablet (7 sources) Benzodiazepine Start: 02-13-2024 End: 08-11-2024 take 1 tablet by mouth every six hours as needed for anxiety and anxiety and anxiety ALPRAZolam (Xanax) 0.25 MG tablet Indications: Anxiety Take 1 tablet (0.25 mg) by mouth every 6 (six) hours if needed for anxiety 60 tablet 02/13/2024 08/11/2024 Active take 1 tablet by codi th every six hours as needed for anxiety ALPRAZolam (XANAX) 0.25 MG tablet Take 1 tablet by mouth every 6 hours as needed for Anxiety. 0 Active take 1 tablet by mouth every eig ht hours Xanax 0.25 MG 1 tablet Orally Three times a day Active amLODIPine 5 mg oral tablet (5 sources) Dihydropyridine Calcium Channel Soumya Start: 02-09-2023 [...] 0 Active atorvastatin 20 mg oral tablet (6 sources) HMG-CoA Reductase Inhibitor Start: 05-24-2023 take 1 tablet by mouth at bedtime atorvastatin (Lipitor) 20 MG tablet Indications: Stage 3a chronic kidney disease (HCC) (CMS/HCC) Take 1 tablet (20 mg) by mouth at bedtime. 100 tablet 3 05/24/2023 Active 12 hr buPROPion hydrochloride 150 mg extended release oral tablet (7 sources) Aminoketone Start: 10-16-2023 take 150 mg [...] mg / cholecalciferol 200 unt oral tablet (4 sources) Vitamin D Calcium Carb-Cholecalciferol 600-200 MG-UNIT tablet Take by mouth 1 (one) time each day at the same time. Active carvedilol 12.5 mg oral tablet (7 sources) alpha-Adrener gic Soumya, beta-Adrenerg ic Soumya [...] 0 Active clotrimazole 10 mg oral lozenge (4 sources) Azole Antifungal Start: 08-03-2021 take 10 mg by mouth every eight hours clotrimazole (Mycelex) 10 MG erinn Take 10 mg by mouth every 8 (eight) hours. 08/03/2021 Active colchicine 0.6 mg oral tablet (4 sources) Start: 11-02-2023 End: 11-01-2024 take 1 tablet by mouth once daily colchicine 0.6 MG tablet Indications: Gout, unspecified cause, unspecified chronicity, unspecified site Take 1 tablet (0.6 mg) by mouth Daily 30 tablet 1 11/02/2023 11/01/2024 Active digoxin 0.125 mg oral tablet (6 sources) Cardiac Glycoside Start: 10-16-2023 Digoxin Acti [...] day(s) Active empagliflozin 10 mg oral tablet (5 sources) Sodium-Glucose Cotransporter 2 Inhibitor Start: 12-26-19 End: 12-26-19 25 take 1 tablet by mouth once daily empagliflozin (Jardiance) 10 MG Indications: Type 2 diabetes mellitus with stage 3b chronic kidney disease, with long-term current use of insulin (HCC) (CMS/HCC) Take 1 tablet (10 mg) by mouth Daily 30 tablet 11 12/26/2023 12/25/2024 Active escitalopram 10 mg oral tablet (7 sources) Serotonin Reuptake Inhibitor Start: 10-16-19 24 take 1 tablet by mouth once daily [...] day(s) Active gabapentin 100 mg oral capsule (6 sources) Anti-epileptic Agent Start: 4 take 1 capsule by mouth in the [...] 3 01/16/2024 Active take 1 capsule by mo uth three times daily gabapentin (NEURONTIN) 100 MG capsule Ta ke 1 capsule by mouth 3 times daily. 0 Active 3 ml insulin lispro 25 unt/ml / insulin lispro protamine, human 75 unt/ml pen injector (6 sources) Insulin Analog Start: 04-29-2024 inject 10 [IU] by subcutaneous injection in the morning insulin lispro protamine-insulin lispro (HumaLOG Mix 75-25) (75-25) 100 UNIT/ML injection Indications: Diabetes mellitus with peripheral vascular disease (CMS/HCC) Inject 10 Units under the skin in the morning and 10 Units in the evening. Inject with meals. 6 mL 11 04/29/2024 Active Start: 04-29-2024 End: 04-29-2024 inject 10 [IU] by subcutaneous injection twice daily at mealtime insulin lispro protamine-insulin lispro (HumaLOG Mix 75-25) (75-25) 100 UNIT/ML injection Indications: Diabetes mellitus with peripheral vascular disease (CMS/HCC) INJECT TEN UNITS SUBCUTANEOUSLY (UNDER THE SKIN) TWICE DAILY (IN THE MORNING and IN THE EVENING) WITH MEALS 90 mL 11 04/29/2024 04/29/2024 Discontinued (Reorder) insulin lispro p rotamine & lispro (HUMALOG [...] 12:00am ammonium lactate 120 mg/ml topical lotion (4 sources) Start: 09-01-2021 ammonium lactate (Lac-Hydrin) 12 % lotion Apply 1 application topically if needed. 09/01/2021 Active levothyroxine sodium 0.05 mg oral tablet (5 sources) l-Thyroxine Start: 11-15-2022 take 1 tablet [...] 2024 12:00am lisinopril 20 mg oral tablet (5 sources) Angiotensin Converting Enzyme Inhibitor Start: 02-09-2023 take 1 tablet by mouth in the morning lisinopril 20 MG tablet Take 20 mg by mouth in the morning. 02/09/2023 Active omeprazole 40 mg delayed release oral capsule (6 sources) Proton Pump Inhibitor Start: 10-16-2023 take [...] day(s) Active rOPINIRole 0.25 mg oral tablet (6 sources) Nonergot Dopamine Agonist Start: take 1 [...] 0 Active spironolactone 25 mg oral tablet (5 sources) Aldosterone Antagonist Start: 01-03-2024 End: 01-02-2025 take 1 tablet by mouth in the morning spironolactone (Aldactone) 25 MG tablet Indications: Chronic right-sided heart failure (HCC) (CMS/HCC) Take 1 tablet (25 mg) by mouth in the morning. 90 tablet 2 01/03/2024 01/02/2025 Active tiZANidine 4 mg oral tablet (5 sources) Central alpha-2 Adrenergic Agonist Start: 04-11-2023 [...] 0 Active torsemide 20 mg oral tablet (6 sources) Loop Diuretic Start: 10-16-2023 take 1 [...] Discontinued 20 MG PO Twice daily 10 October 16, 2023 12:00am October 16, 2023 11:36am Problems Active Problems Problem Classification Problem Date Documented Da te Episodic/Chronic Acute and unspecified renal failure (1 source) Acute kidney failure, unspecified; Translations: [ACUTE KIDNEY FAILURE UNSPECIFIED] Onset: 11-21-2022 Episodic Allergic reactions (3 sources) Allergy status to penicillin; Translations: [Allergy status to other drugs, medicaments and biological substances status] Onset: 11-21-2022 Episodic Anxiety disorders (8 sources) Mixed anxiety and depressive disorder; Translations: [Other specified anxiety disorders] Onset: 11-21-2022 11-21-2022 Chronic Asthma (5 sources) Unspecified asthma, uncomplicated; Translations: [Asthma] Onset: 10-12-2022 11-21-2022 Chronic Bacterial infection; unspecified site (1 source) Unspecified Escherichia coli [E. coli] as the cause of diseases classified elsewhere; Translations: [UNS E COLI CAUSE DX CLASS ELSEWHERE] Onset: 11-21-2022 Episodic Cardiac dysrhythmias (20 sources) Unspecified atrial fibrillation; Translations: [Atrial fibrillation with rapid ventricular response] Onset: 11-21-2022 11-21-2022 Chronic Cardiac dysrhythmias (1 source) Bradycardia, unspecified; Translations: [BRADYCARDIA UNSPECIFIED] Onset: 10-12-2022 Episodic Cataract (13 sources) Presence of intraocular lens; Translations: [Age-related nuclear cataract, right eye] Onset: 04-13-2022 Chronic Chronic kidney disease (8 sources) Chronic kidney disease stage 3B ; Translations: [Stage 3b chronic kidney disease (HCC)] Onset: 11-21-2022 Resolved: 08-02-2023 11-21-2022 Chronic Chronic kidney disease (1 source) Chronic kidney disease; Translations: [CHRONIC KIDNEY DISEASE STAGE 3B] Onset: 11-21-2022 Chronic obstructive pulmonary disease and bronchiectasis (4 sources) Chronic obstructive lung disease; Translations: [Chronic obstructive pulmonary disease, unspecified] Onset: 11-21-2022 11-21-2022 Chronic Congestive heart failure; nonhypertensive (20 sources) Acute combined systolic (congestive) and diastolic (congestive) heart failure; Translations: [Acute on chronic combined systolic (congestive) and diastolic (congestive) heart failure] Onset: 02-08-2022 Chronic Deficiency and other anemia (1 source) Iron deficiency anemia, unspecified; Translations: [IRON DEFICIENCY ANEMIA UNSPECIFIED] Onset: 11-21-2022 Episodic Diabetes mellitus with complications (20 sources) Type 2 diabetes mellitus with diabetic chronic kidney disease; Translations: [Type 2 diabetes mellitus with hyperglycemia] Onset: 05-12-2020 Resolved: 12-26-2023 04-29-2024 Chronic Diabetes mellitus without complication (4 sources) Type 2 diabetes mellitus without complications; Translations: [Type 2 diabetes mellitus] Onset: 04-19-2022 04-25-2024 Chronic Disorders of lipid metabolism (5 sources) Pure hypercholesterolemia , unspecified; Translations: [Hyperlipidemia] Onset: 11-21-2022 11-21-2022 Chronic Diverticulosis and diverticulitis (4 sources) Diverticulosis of colon; Translations: [Diverticulosis of large intestine without perforation or abscess without bleeding] Onset: 11-21-2022 11-21-2022 Chronic Esophageal disorders (8 sources) Gastro-esophageal reflux disease without esophagitis; Translations: [Gastroesophageal reflux disease] Onset: 11-21-2022 04-25-2024 Chronic Essential hypertension (8 sources) Essential (primary) hypertension; Translations: [Hypertensive disorder] Onset: 04-19-2022 04-25-2024 Chronic Fluid and electrolyte disorders (2 sources) Hyperkalemia; Translations: [Dehydration] Onset: 05-08-2022 Episodic Genitourinary symptoms and ill-defined conditions (4 sources) Urinary incontinence; Translations: [Unspecified urinary incontinence] Onset: 11-21-2022 11-21-2022 Chronic Gout and other crystal arthropathies (1 source) Gout, unspecified; Translations: [GOUT UNSPECIFIED] Onset: 02-14-2022 Chronic Heart valve disorders (20 sources) Presence of prosthetic heart valve; 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, aortic and tricuspid valves] Onset: 11-23-2011 04-25-2024 Chronic Hypertension with complications and secondary hypertension (6 sources) Hypertensive heart disease with heart failure; Translations: [Hypertensive heart and chronic kidney disease with heart failure and stage 1 through stage 4 chronic kidney disease, or unspecified chronic kidney disease] Onset: 02-14-2022 Chronic Menopausal disorders (4 sources) Primary ovarian failure; Translations: [Other primary ovarian failure] Onset: 11-21-2022 11-21-2022 Chronic Menopausal disorders (1 source) Hormone replacement therapy; Translations: [HORMONE REPLACEMENT THERAPY] Onset: 11-21-2022 Episodic Mood disorders (1 source) Mood disorders; Translations: [DEPRESSION UNSPECIFIED] Onset: 11-21-2022 Nonspecific chest pain (3 sources) Chest pain; Translations: [Chest pain, unspecified] Onset: 04-25-2024 04-25-2024 Episodic Osteoarthritis (20 sources) Arthritis of right ankle; Translations: [Primary osteoarthritis, right ankle and foot] Onset: 11-21-2022 11-21-2022 Chronic Other acquired deformities (4 sources) Contracture of joint of right ankle; Translations: [Contracture, right ankle] Onset: 11-21-2022 11-21-2022 Chronic Other aftercare (1 source) 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; Translations: [PROMOTIONS ASSOCIATE CURRENT USE OF INSULIN] Onset: 11-21-2022 Episodic Other aftercare (1 source) longterm (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 of aspirin; Translations: [MCFP CURRENT USE OF ASPIRIN] Onset: 11-21-2022 Episodic Other aftercare (1 source) Other mcc (current) drug therapy; Translations: [OTH [facility]FP CURRENT DRUG THERAPY] Onset: 11-21-2022 Episodic Other and ill-defined heart disease (4 sources) Diastolic dysfunction; Translations: [Other ill-defined heart diseases] Onset: 11-21-2022 11-21-2022 Chronic Other eye disorders (1 source) Cataract extraction status, left eye; Translations: [CATARACT EXTRACTION STATUS LEFT EYE] Onset: 11-21-2022 Episodic Other eye disorders (1 source) Cataract extraction status, right eye; Translations: [CATARACT EXTRACTION STATUS RT EYE] Onset: 11-21-2022 Episodic Other fractures (1 source) Wedge compression fracture of T11-T12 vertebra, initial encounter for closed fracture; Translations: [Wedge compression fracture of T11-T12 vertebra, initial encounter for closed fracture] Onset: 05-09-2023 Episodic Other fractures (1 source) Fracture of left rib; Translations: [Fracture of one rib, left side, initial encounter for closed fracture] 04-25-2024 Episodic Other fractures (2 sources) Fracture of one rib, left side, initial encounter for closed fracture; Translations: [Closed fracture of rib(s), unspecified] Onset: 04-25-2024 04-25-2024 Episodic Other fractures (2 sources) Closed fracture of multiple ribs; Translations: [Multiple fractures of ribs, right side, subsequent encounter for fracture with routine healing] 05-08-2024 Episodic Other hereditary and degenerative nervous system conditions (4 sources) Restless legs; Translations: [Restless legs syndrome] Onset: 11-21-2022 11-21-2022 Chronic Other lower respiratory disease (1 source) Personal history of pneumonia (recurrent); Translations: [PERSONAL HX OF PNEUMONIA RECURRENT] Onset: 11-21-2022 Episodic Other lower respiratory disease (4 sources) Dyspnea, unspecified; Translations: [DYSPNEA UNSPECIFIED] Onset: 10-06-2022 Episodic Other lower respiratory disease (1 source) Personal history of other diseases of the respiratory system; Translations: [PERS HX OTH DZ RESPIRATORY SYSTEM] Onset: 11-21-2022 Episodic Other lower respiratory disease (2 sources) Other forms of dyspnea; Translations: [Other forms of dyspnea] Onset: 02-22-2022 Episodic Other nervous system disorders (4 sources) Difficulty walking; Translations: [Difficulty in walking, not elsewhere classified] Onset: 11-21-2022 11-21-2022 Chronic Other nutritional; endocrine; and metabolic disorders (4 sources) Body mass index 30+ - obesity; Translations: [Obesity, unspecified] Onset: 11-21-2022 11-21-2022 Chronic Other upper respiratory disease (4 sources) Allergic rhinitis due to pollen; Translations: [Allergic rhinitis due to pollen] Onset: 11-21-2022 11-21-2022 Chronic Other upper respiratory infections (1 source) Chronic frontal sinusitis; Translations: [Sinusitis chronic, frontal] Chronic Pathological fracture (3 sources) Pathological fracture of vertebra due to osteoporosis; Translations: [Age-related osteoporosis with current pathological fracture, vertebra(e), initial encounter for fracture] Onset: 05-09-2023 05-09-2023 Episodic Peripheral and visceral atherosclerosis (4 sources) Peripheral vascular disease; Translations: [Peripheral vascular disease, unspecified] Onset: 11-21-2022 11-21-2022 Chronic Poisoning by other medications and drugs (1 source) Poisoning by cardiac-stimulant glycosides and drugs of similar action, accidental (unintentional), initial encounter; Translations: [PSN CARD GLYCOS RX SIM ACT ACC INIT] Onset: 10-12-2022 Episodic Pulmonary heart disease (6 sources) Pulmonary hypertension; Translations: [Pulmonary hypertension, unspecified] Onset: 10-30-2022 04-10-2023 Chronic Residual codes; unclassified (4 sources) Obstructive sleep apnea syndrome; Translations: [Obstructive sleep apnea (adult) (pediatric)] Onset: 11-21-2022 11-21-2022 Chronic Residual codes; unclassified (1 source) Acquired absence of both cervix and uterus; Translations: [ACQUIRED ABSENCE BOTH CERVIX AND UTERUS] Onset: 11-21-2022 Episodic Residual codes; unclassified (1 source) Acquired absence of other specified parts of digestive tract; Translations: [ACQ ABSENCE OTH PART DIGESTV TRACT] Onset: 11-21-2022 Episodic Residual codes; unclassified (1 source) Other specified postprocedural states; Translations: [OTH SPECIFIED POSTPROCEDURAL STATES] Onset: 11-21-2022 Episodic Residual codes; unclassified (1 source) Family history of ischemic heart disease and other diseases of the circulatory system; Translations: [FAM HX ISCHEMIC HRT DZ OTH DZ CIRC] Onset: 11-21-2022 Episodic Residual codes; unclassified (1 source) Family history of diabetes mellitus; Translations: [FAMILY HISTORY OF DIABETES MELLITUS] Onset: 11-21-2022 Episodic Respiratory failure; insufficiency; arrest (adult) (1 source) Dependence on supplemental oxygen; Translations: [DEPENDENCE ON SUPPLEMENTAL OXYGEN] Onset: 10-12-2022 Chronic Screening and history of mental health and substance abuse codes (1 source) Personal history of nicotine dependence; Translations: [PERSONAL HISTORY OF NICOTINE DEPEND] Onset: 11-21-2022 Episodic Spondylosis; intervertebral disc disorders; other back problems (3 sources) Lumbar spondylosis; Translations: [Spondylosis without myelopathy or radiculopathy, lumbar region] Onset: 08-07-2023 08-07-2023 Chronic Spondylosis; intervertebral disc disorders; other back problems (8 sources) Lumbar radiculitis; Translations: [Radiculopathy, lumbar region] Onset: 11-21-2022 05-29-2023 Episodic Thyroid disorders (20 sources) Hypothyroidism, unspecified; Translations: [Thyrotoxicosis, unspecified without thyrotoxic crisis or storm] Onset: 04-12-2022 Chronic Unclassified (1 source) PERSONAL HISTORY OF COVID-19; Translations: [PERSONAL HISTORY OF COVID-19] Onset: 11-21-2022 Unclassified (1 source) CONTACT W/AND (SUSP) EXPOS COVID-19; Translations: [CONTACT W/AND (SUSP) EXPOS COVID-19] Onset: 10-12-2022 Unclassified (2 sources) Permanent atrial fibrillation; Translations: [Permanent atrial fibrillation] Onset: 12-07-2023 Urinary tract infections (1 source) Urinary tract infection, site not specified; Translations: [UTI SITE NOT SPECIFIED] Onset: 11-21-2022 Episodic Past or Other Problems Problem Classification Problem Date Documented Da te Episodic/Chronic Deficiency and other anemia (4 sources) Anemia; Translations: [Anemia, unspecified] Onset: 3 04-10-2023 Episodic Immunizations and screening for infectious disease (1 source) Contact with and (suspected) exposure to other viral communicable diseases Onset: 1 Resolved: 1 Episodic Intestinal obstruction without hernia (4 sources) Stenosis of colon; Translations: [Other intestinal obstruction unspecified as to partial versus complete obstruction] Onset: 3 11-21-2022 Episodic Nausea and vomiting (1 source) Nausea with vomiting, unspecified; Translations: [NAUSEA WITH VOMITING UNSPECIFIED] Onset: 2 Episodic Open wounds of extremities (1 source) Open wound of finger without complication; Translations: [Thumb laceration] Episodic Other aftercare (4 sources) Long-term current use of anticoagulant; Translations: [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] Onset: 8 04-10-2023 Episodic Other bone disease and musculoskeletal deformities (4 sources) Osteopenia; Translations: [Other specified disorders of bone density and structure, multiple sites] Onset: 3 11-21-2022 Episodic Other connective tissue disease (4 sources) Pain in left foot; Translations: [PAIN IN LEFT FOOT] Onset: 2 Episodic Other connective tissue disease (4 sources) Muscle weakness; Translations: [Muscle weakness (generalized)] Onset: 3 11-21-2022 Episodic Other eye disorders (4 sources) Dry eyes; Translations: [Dry eye syndrome of bilateral lacrimal glands] Onset: 4 07-30-2023 Episodic Other fractures (4 sources) Fracture of twelfth thoracic vertebra; Translations: [Wedge compression fracture of T11-T12 vertebra, initial encounter for closed fracture] Onset: 3 03-15-2023 Episodic Other gastrointestinal disorders (1 source) Diarrhea, unspecified; Translations: [DIARRHEA UNSPECIFIED] Onset: 2 Episodic Other gastrointestinal disorders (4 sources) Drug-induced constipation; Translations: [Drug induced constipation] Onset: 3 11-21-2022 Episodic Other lower respiratory disease (1 source) Cough; Translations: [Cough] Episodic Other lower respiratory disease (5 sources) Dyspnea; Translations: [Shortness of breath] Onset: 6 04-10-2023 Episodic Other nervous system disorders (4 sources) Unsteady when standing; Translations: [Unsteadiness on feet] Onset: 3 11-21-2022 Episodic Other nervous system disorders (4 sources) Abnormal gait; Translations: [Unspecified abnormalities of gait and mobility] Onset: 2 04-10-2023 Episodic Other nutritional; endocrine; and metabolic disorders (1 source) Abnormal weight loss; Translations: [ABNORMAL WEIGHT LOSS] Onset: 2 Episodic Other nutritional; endocrine; and metabolic disorders (4 sources) History of iron deficiency; Translations: [Personal history of other endocrine, nutritional and metabolic disease] Onset: 7 04-10-2023 Episodic Other screening for suspected conditions (not mental disorders or infectious disease) (7 sources) Electrocardiogram abnormal; Translations: [Abnormal electrocardiogram [ECG] [EKG]] Onset: 8 04-25-2024 Episodic Other upper respiratory infections (1 source) Acute upper respiratory infection, unspecified Onset: 1 Resolved: 1 Episodic Pneumonia (except that caused by tuberculosis or sexually transmitted disease) (3 sources) Pneumonia, unspecified organism; Translations: [PNEUMONIA UNSPECIFIED ORGANISM] Onset: 2 Episodic Viral infection (4 sources) COVID-19; Translations: [Pneumonia due to other virus not elsewhere classified] Onset: 2 04-10-2023 Episodic Results Test Name Value Interpretation Reference Range Facility Orders Onlyon 05-23-2024 Orders Only [id number] Jenni Quinones 1940 Provider Department Center 05/23/2024 [facility] TRAN [facility] Family History Problem Relation Age of Onset Diabetes Father Heart failure Father Other Other Family Status - Relation Status Age at Father Other Normal [facility] Office Visiton 05-13-2024 Follow-up visit [id number] Jenni Quinones 1940 Date Provider Department Center 05/13/2024 Isaias-BRENT ZAIDI [facility] Family History Problem Relation Age of Onset Diabetes Father Heart failure Father Other Other Family Status - Relation Status Age at Father Other Level of Service:04847 [place] OFFICE/OUTPATIENT ESTABLISHED HIGH MDM 40 MIN Reason for Visit and Comments: Valve Disorder [3372] Congestive Heart Failure [127] Normal [facility] STR cardiac stress/lexiscano n 04-27-2024 STR cardiac stress/lexiscan [facility] Main [place] [address] [place] [address] Cardiac Stress Test Signed Patient: Jenni Quinones MR#: [id number] 0 : 1940 Acct:[id number] Age/Sex: 84 / F ADM Date: 04/25/24 Loc: Room: 2M1722-6 Type: DIS IN Attending Dr: Javan Gruber MD Copies to: Palmira Lowery MD, [facility] Ingrid Haynes DO Ordering Provider: Ingrid Haynes [...] 04/28/24 1507 Dictated By: Palmira Lowery MD, [facility] 04/27/24 1606 Signed By: 05/01/24 1218 Normal [facility] A1C with Estimated Average G [facility] 04-25-2024 Glucose [Mass/Vol] 171 mg/dL Normal [facility] Comment on above: Result Comment: PERF ORMED BY: [place] [address] PATHOLOGIST SIDEROGRAPHIST ALVARO LEWIS M.D. Performed By: #### M G, LIPID, A1C WTH eA, BMP, HEPATIC #### [address] Activated partial thrombopla stin time (aPTT) in platelet poor plasma by coagulation aOrdered By: Lalo Carter on 04-25-2024 aPTT Coag (PPP) [Time] 30.0 s 25.1-36.5 [facility] Comment on above: A hematocrit value g reater than 55% may lead to inaccurate results in coagulation testing. Patients having hematocrit values >55% require a special collection tube for coagulation studies. Please contact the laboratory at [phone] for redraw instructions. Alanine aminotransferase [En zymatic activity/volume] in Serum or PlasmaOrdered By: Lalo Carter on 04-25-2024 ALT [Catalytic activity/Vol] 7 U/L Normal 7-52 [facility] Comment on above: Order Comment: FASTI NG Y Performed By: #### M G, LIPID, A1C WTH eA, BMP, HEPATIC #### [facility] [address] [place] [address] [place] Albumin [Mass/volume] in Ser um or Plasma by Bromocresol green (BCG) dye binding methoOrdered By: Lalo Carter on 04-25-2024 Albumin BCG dye [Mass/Vol] 3.1 g/dL Low 3.5-5.7 [facility] Alkaline phosphatase [Enzyma tic activity/volume] in Serum or PlasmaOrdered By: Lalo Carter on 04-25-2024 ALP [Catalytic activity/Vol] 78 U/L Normal 34-104 [facility] Comment on above: Order Comment: FASTI NG Y Performed By: #### M G, LIPID, A1C WTH eA, BMP, HEPATIC #### [facility] [address] [place] [id number] [place] Aspartate aminotransferase [ Enzymatic activity/volume] in Serum or PlasmaOrdered By: Lalo Carter on 04-25-2024 AST [Catalytic activity/Vol] 13 U/L Normal 13-39 [facility] Comment on above: Order Comment: FASTI NG Y Performed By: #### M G, LIPID, A1C WTH eA, BMP, HEPATIC #### [facility] [address] [place] [id number] [place] Automated basophil %Ordered By: Lalo Carter on 04-25-2024 Basophils/100 WBC (Bld) 0.8 % Normal . [facility] Comment on above: Performed By: #### M G, LIPID, A1C WTH eA, BMP, HEPATIC #### [facility] [address] Automated basophil countOrde red By: Lalo Carter on 04-25-2024 Basophils (Bld) [#/Vol] 0.1 10*3/uL Normal 0.0-0.2 [facility] Comment on above: Result Comment: PERF ORMED BY: [place] [address] PATHOLOGIST SIDEROGRAPHIST ALVARO LEWIS M.D. Performed By: #### M G, LIPID, A1C WTH eA, BMP, HEPATIC #### [address] Automated blood monocyte cou ntOrdered By: Lalo Carter on 04-25-2024 Monocytes (Bld) [#/Vol] 0.8 10*3/uL Normal 0.0-0.8 [facility] Comment on above: Performed By: #### M G, LIPID, A1C WTH eA, BMP, HEPATIC #### [address] Automated eosinophil %Ordere d By: Lalo Carter on 04-25-2024 Eosinophils/100 WBC (Bld) 2.9 % Normal . [facility] Comment on above: Performed By: #### M G, LIPID, A1C WTH eA, BMP, HEPATIC #### [facility] [address] Automated eosinophil countOr dered By: Lalo Carter on 04-25-2024 Eosinophils (Bld) [#/Vol] 0.3 10*3/uL Normal 0.0-0.45 [facility] Comment on above: Performed By: #### M G, LIPID, A1C WTH eA, BMP, HEPATIC #### [facility] [address] [place] [address] Automated monocyte %Ordered By: Lalo Carter on 04-25-2024 Monocytes/100 WBC (Bld) 8.7 % Normal . [facility] Comment on above: Performed By: #### M G, LIPID, A1C WTH eA, BMP, HEPATIC #### [facility] [address] Automated neutrophil %Ordere d By: Lalo Carter on 04-25-2024 Neutrophils/100 WBC (Bld) 79.6 % Normal . [facility] Comment on above: Performed By: #### M G, LIPID, A1C WTH eA, BMP, HEPATIC #### [facility] [address] Basic Metabolic Panelon 04-08 Creatinine Clr Calc Pharmacy 32.54 Normal [facility] Comment on above: Order Comment: FASTI NG Y Performed By: #### M G, LIPID, A1C WTH eA, BMP, HEPATIC #### [address] GFR/1.73 sq M.predicted MDRD (S/P/Bld) [Vol rate/Area] 44.359 mL/min/{1.73_m2} Normal [facility] Comment on above: Order Comment: FASTI NG Y Performed By: #### M G, LIPID, A1C WTH eA, BMP, HEPATIC #### [facility] [address] [place] [address] Bilirubin.direct [Mass/volum e] in Serum or PlasmaOrdered By: Lalo Carter on 04-25-2024 Bilirubin.direct [Mass/Vol] 0.10 mg/dL 0.03-0.18 [facility] Bilirubin.total [Mass/volume ] in Serum or PlasmaOrdered By: Lalo Carter on 04-25-2024 Bilirubin [Mass/Vol] 0.5 mg/dL Normal 0.3-1.0 [facility] Comment on above: Order Comment: FASTI NG Y Performed By: #### M G, LIPID, A1C WTH eA, BMP, HEPATIC #### [facility] [address] angio chest PE protocolon 04-25-2024 CT angio chest PE protocol [facility] [address] [place], [place] [id number] CT Scan Report Signed Patient: Jenni Quinones MR#: [id number] 0 : 1940 Acct:[id number] Age/Sex: 84 / F ADM Date: 04/25/24 Loc: Room: [address] [place] [address] Type: ADM IN Attending Dr: Lalo Carter [...] Rosina Levin M.D.04/25/2024 8:30 AM Dictation Location: [place] [address] Transcribed By: [facility] 04/25/24829 Dictated By: Rosina Levin MD 04/25/24805 Signed By: 04/25/24829 Normal [facility] Calcium [Mass/volume] in Ser um or PlasmaOrdered By: Lalo Carter on 04-25-2024 Calcium [Mass/Vol] 8.4 mg/dL Low 8.6-10.3 [facility] Comment on above: Order Comment: AMANDOI NG Y Performed By: #### M G, LIPID, A1C WTH eA, BMP, HEPATIC #### [facility] [address] Capillary blood glucose mer urement by glucometer (mass/volume)Ordered By: Javan Gruber on 04-25-2024 Glucose [Mass/Vol] 108 mg/dL Normal [facility] Comment on above: Random Glucose Refer ence Range is dependent on time and content of last meal. Glucose of more than 200 mg/dL in a nonstressed, ambulatory subject supports the diagnosis of Diabetes Mellitus. Result Comment: [place] om Glucose Reference Range is dependent on time and content of last meal. Glucose of more than 200 mg/dL in a nonstressed, ambulatory subject supports the diagnosis of Diabetes Mellitus. Performed By: #### M G, LIPID, A1C WTH eA, BMP, HEPATIC #### [facility] [address] Carbon dioxide, total [Moles /volume] in Serum or PlasmaOrdered By: Lalo Carter on 04-25-2024 CO2 [Moles/Vol] 30.3 mmol/L Normal 21.0-31.0 [facility] Comment on above: Order Comment: BETSEY Blackburn Performed By: #### M G, LIPID, A1C WTH eA, BMP, HEPATIC #### [facility] [address] [place] [address] [place] Chloride [Moles/volume] in S theresa or PlasmaOrdered By: Lalo Carter on 04-25-2024 Chloride [Moles/Vol] 102 mmol/L Normal 98-107 [facility] Comment on above: Order Comment: BETSEY Blackburn Performed By: #### M G, LIPID, A1C WTH eA, BMP, HEPATIC #### [facility] [address] [place] [address] [place] Cholesterol [Mass/volume] in Serum or PlasmaOrdered By: Lalo Carter on 04-25-2024 Cholesterol [Mass/Vol] 88 mg/dL Low 140-200 [facility] Comment on above: Chol less than 200 m g/dl low riskChol 201-239 mg/dl borderline riskChol 240 mg/dl and greater high risk Order Comment: BETSEY Blackburn Result Comment: Chol less than 200 mg/dl low risk Chol 201-239 mg/dl borderline risk Chol 240 mg/dl and greater high risk Performed By: #### M G, LIPID, A1C WTH eA, BMP, HEPATIC #### [facility] [address] [place] [address] [place] Cholesterol in LDL Calc [Mas s/Vol]Ordered By: Lalo Carter on 04-25-2024 Cholesterol in LDL [Mass/Vol] 36 mg/dL 0-100 [facility] Comment on above: LDL ATP III CLASSIFI CATIONLDL less than 100 mg/dL OptimalLDL 100-129 mg/dL Near or above optimalLDL 130-159 mg/dL Borderline highLDL 160-189 mg/dL HighLDL greater than 189 mg/dL Very high Cholesterol in VLDL Calc [Ma ss/Vol]Ordered By: Lalo Carter on 04-25-2024 Cholesterol in VLDL [Mass/Vol] 18 mg/dL [facility] Complete Blood Count Auto Di ffon 04-25-2024 Mean Corpuscular HGB Conc 32.8 g/dL Normal 32.0-35.0 [facility] Comment on above: Performed By: #### M G, LIPID, A1C WTH eA, BMP, HEPATIC #### [facility] [address] NRBC% 0.1 /100{WBC} Normal 0-0.5 [facility] Comment on above: Performed By: #### M G, LIPID, A1C WTH eA, BMP, HEPATIC #### [facility] [address] Creatinine [Mass/volume] in Serum or PlasmaOrdered By: Lalo Carter on 04-25-2024 Creatinine [Mass/Vol] 1.20 mg/dL Normal 0.60-1.20 [facility] Comment on above: Order Comment: BETSEY GE Y Performed By: #### M G, LIPID, A1C WTH eA, BMP, HEPATIC #### [facility] [address] ECG 12 lead ECGon 04-25-2024 ECG 12 lead ECG [facility] [place] [address] Electrocardiograph Report Signed Patient: Jenni Quinones MR#: [id number] 0 : 1940 Acct:[id number] Age/Sex: 84 / F ADM Date: 04/25/24 Loc: Room: [address] [place] [address] Type: DIS IN Attending Dr: Javan Gruber [...] previous ECGs available Confirmed by SEBASTIÁN MOULTON [facility], [place] ([id number]) on 04/25/2024 5:26:27 PM Referred By: Electronically Signed By: [place]IRA LOWERY MD [facility] Transcribed By: MUS Signed By Palmira Lowery MD, [facility] 04/25/24 1726 Normal [facility] echo transthoracicon [facility] echo transthoracic [facility] [place] [address] Echocardiogram Signed Patient: Jenni Quinones MR#: [id number] 0 : 1940 Acct:[id number] Age/Sex: 84 / F ADM Date: 04/25/24 Loc: Room: [address] [place] [address] Type: DIS IN Attending Dr: Javan Gruebr MD Ordering Provider: Lalo Carter DO Date of Service: 04/25/24 [facility] transthoracic: history of aortic insufficiency. Copies to: Palmira Lowery MD, [facility] Lalo Carter DO Weight: 166 lb Performed [...] area: LVOT diam: 1.3 cm RV S Bradley: EDV(Teich): 81.9 ml 9.3 cm2 LVOT area: [...] by: PAL[place]IRA (more content not included)... Normal [facility] Erythrocyte distribution wid th [Ratio] by Automated countOrdered By: Lalo Carter on 04-25-2024 Erythrocyte distribution width (RBC) [Ratio] 18.3 % High 11.9-15.3 [facility] Comment on above: Performed By: #### M G, LIPID, A1C WTH eA, BMP, HEPATIC #### [facility] [address] [place] [id number] [place] Erythrocytes [#/volume] in B lood by Automated countOrdered By: Lalo Carter on 04-25-2024 RBC (Bld) [#/Vol] 3.18 10*6/uL Low 3.60-5.00 [facility] Comment on above: Performed By: #### M Marlena, LIPID, A1C WTH eA, BMP, HEPATIC #### [facility] [address] [place] [address] [facility] Glucose Poct Glucometerson 1 Commemt1 Glu2: Cleaned Meter Normal [facility] Comment on above: Result Comment: PERF ORMED BY: [facility] [address] [place] [address] PATHOLOGIST SIDEROGRAPHIST ALVARO LEWIS M.D. Performed By: #### M G, LIPID, A1C WTH eA, BMP, HEPATIC #### [facility] [address] [place] [id number] [facility] Glucose [Mass/volume] in Ser um or PlasmaOrdered By: Lalo Carter on 04-25-2024 Glucose [Mass/Vol] 121 mg/dL High 70-100 [facility] Comment on above: ADA recommended refe rence rangeRandom Glucose Reference Range is dependent on time and content of last meal. Glucose of more than 200 mg/dL in a nonstressed, ambulatory subject supports the diagnosis of Diabetes Mellitus. Order Comment: FASTI NG Y Result Comment: [place] om Glucose Reference Range is dependent on time and content of last meal. Glucose of more than 200 mg/dL in a nonstressed, ambulatory subject supports the diagnosis of Diabetes Mellitus. ADA recommended reference range Performed By: #### M G, LIPID, A1C WTH eA, BMP, HEPATIC #### [facility] [address] Glucose mean value [Mass/vol ume] in Blood Estimated from glycated hemoglobinOrdered By: Lalo Carter on 04-25-2024 Average glucose Estimated from glycated hemoglobin (Bld) [Mass/Vol] 171 mg/dL [facility] Hematocrit [Volume Fraction] of Blood by Automated countOrdered By: Lalo Carter on 04-25-2024 Hematocrit (Bld) [Volume fraction] 28.8 % Low 34.0-46.4 [facility] Comment on above: Performed By: #### M G, LIPID, A1C WTH eA, BMP, HEPATIC #### [address] Hemoglobin A1c percentageOrd ered By: Lalo Carter on 04-25-2024 HbA1c (Bld) [Mass fraction] 7.6 % High 4.3-5.6 [facility] Comment on above: Increased risk for d iabetes: 5.7 - 6.4diabetes: >6.4glycemic control for adults with diabetes: <7.0 Result Comment: Incr eased risk for diabetes: 5.7 - 6.4 diabetes: >6.4 glycemic control for adults with diabetes: <7.0 Performed By: #### M G, LIPID, A1C WTH eA, BMP, HEPATIC #### [facility] [address] Hemoglobin [Mass/volume] in BloodOrdered By: Lalo Carter on 04-25-2024 Hemoglobin (Bld) [Mass/Vol] 9.4 g/dL Low 11.8-15.4 [facility] Comment on above: Performed By: #### M G, LIPID, A1C WTH eA, BMP, HEPATIC #### [facility] [address] Hepatic Panelon 04-25-2024 Albumin [Mass/Vol] 3.1 g/dL Low 3.5-5.7 [facility] Comment on above: Order Comment: FASTI NG Y Performed By: #### M G, LIPID, A1C WTH eA, BMP, HEPATIC #### [facility] [address] Bilirubin,Indirect 0.4 mg/dL Normal [facility] Comment on above: Order Comment: FASTI NG Y Performed By: #### M G, LIPID, A1C WTH eA, BMP, HEPATIC #### [facility] [address] Bilirubin.indirect [Mass/Vol] 0.10 mg/dL Normal 0.03-0.18 [facility] Comment on above: Order Comment: FASTI NG Y Performed By: #### M G, LIPID, A1C WTH eA, BMP, HEPATIC #### [facility] [address] INR in Platelet poor plasma by Coagulation assayOrdered By: Lalo Carter on 04-25-2024 INR Coag (PPP) [Relative time] 1.1 {INR} Normal [facility] Comment on above: INR Therapeutic Rang e [...] LIPID, A1C WTH eA, BMP, HEPATIC #### [facility] [address] Leukocytes [#/volume] correc paige for nucleated erythrocytes in Blood by Automated counOrdered By: Lalo Carter on 04-25-2024 WBC corrected for nucl RBC Auto (Bld) [#/Vol] 8.9 10*3/uL 3.8-11.6 [facility] Leukocytes [#/volume] in Blo od by Automated countOrdered By: Lalo Carter on 04-25-2024 WBC (Bld) [#/Vol] 8.9 10*3/uL Normal 3.8-11.6 [facility] Comment on above: Performed By: #### M G, LIPID, A1C WTH eA, BMP, HEPATIC #### [facility] [address] [place] [id number] [facility] Lipid Panelon 04-25-2024 LDL Cholesterol,Calculate d 36 mg/dL Normal 0-100 [facility] Comment on above: Order Comment: BETSEY Blackburn Result Comment: LDL ATP III CLASSIFICATION LDL less than 100 mg/dL Optimal LDL 100-129 mg/dL Near or above optimal LDL 130-159 mg/dL Borderline high LDL 160-189 mg/dL High LDL greater than 189 mg/dL Very high Performed By: #### M G, LIPID, A1C WTH eA, BMP, HEPATIC #### [facility] [address] [place] [phone] [facility] Triglyceride w/Reflex 92 mg/dL Normal 0-149 [facility] Comment on above: Order Comment: BETSEY Blackburn Result Comment: TRIG ATP III CLASSIFICATION TRIG less than 150 mg/dL Normal TRIG 150-199 mg/dL Borderline high TRIG 200-500 mg/dL High TRIG greater than 500 mg/dL Very high Standard traceable to the Center for Disease Conrtrol and Prevention (CDC) test method. Performed By: #### M G, LIPID, A1C WTH eA, BMP, HEPATIC #### [facility] [address] [place] [id number] [facility] VLDL CHOLESTEROL 18 mg/dL Normal [facility] Comment on above: Order Comment: BETSEY Blackburn Performed By: #### M G, LIPID, A1C WTH eA, BMP, HEPATIC #### [facility] [address] [place] [id number] [place] Lymphocytes [#/volume] in Bl ood by Automated countOrdered By: Lalo Carter on 04-25-2024 Lymphocytes (Bld) [#/Vol] 0.7 10*3/uL Low 1.00-4.8 [facility] Comment on above: Performed By: #### M G, LIPID, A1C WTH eA, BMP, HEPATIC #### [facility] [address] [place] [address] [place] Lymphocytes/100 leukocytes i n Blood by Automated countOrdered By: Lalo Carter on 04-25-2024 Lymphocytes/100 WBC (Bld) 8.0 % Normal . [facility] Comment on above: Performed By: #### M G, LIPID, A1C WTH eA, BMP, HEPATIC #### [facility] [address] MCH [Entitic mass] by Automa paige countOrdered By: Lalo Carter on 04-25-2024 MCH (RBC) [Entitic mass] 29.7 pg Normal 24.7-34.3 [facility] Comment on above: Performed By: #### M G, LIPID, A1C WTH eA, BMP, HEPATIC #### [facility] [address] MCHC Auto (RBC) [Mass/Vol]Or dered By: Lalo Carter on 04-25-2024 MCHC (RBC) [Mass/Vol] 32.8 g/dL 32.0-35.0 [facility] MCV [Entitic volume] by Auto mated countOrdered By: Lalo Carter on 04-25-2024 MCV (RBC) [Entitic vol] 90.6 fL Normal 80-100 [facility] Comment on above: Performed By: #### M G, LIPID, A1C WTH eA, BMP, HEPATIC #### [facility] [address] Magnesium [Mass/volume] in S theresa or PlasmaOrdered By: Lalo Carter on 04-25-2024 Magnesium [Mass/Vol] 2.1 mg/dL Normal 1.9-2.7 [facility] Comment on above: Order Comment: FASTI NG Y Performed By: #### M G, LIPID, A1C WTH eA, BMP, HEPATIC #### [facility] [address] [place] [id number] [facility] NM lissy perf SPECT rest stron 04-25-2024 NM lissy perf SPECT rest str [facility] [place] [address] [place] [address] Nuclear Medicine Report Signed Patient: Jenni Quinones MR#: [id number] 0 : 1940 Acct:[id number] Age/Sex: 84 / F ADM Date: 04/25/24 Loc: Room: [address] [place] [address] Type: DIS IN Attending Dr: Javan Gruber [...] 1614 Signed By: 05/01/24 1218 Normal [facility] Neutrophils [#/volume] in Bl ood by Automated countOrdered By: Lalo Carter on 04-25-2024 Neutrophils (Bld) [#/Vol] 7.1 10*3/uL Normal 1.8-7.7 [facility] Comment on above: Performed By: #### M G, LIPID, A1C WTH eA, BMP, HEPATIC #### [facility] [address] [place] [address] No Panel InformationOrdered By: Javan Gruber on 04-25-2024 Bedside Glucose Comment Glu2: cleaned meter [facility] No Panel InformationOrdered By: Lalo Carter on 04-25-2024 Estimated GFR (CKD-EPI) 44.359 mL/Min [facility] Creatinine Clearance (Chem 32.54 [facility] Nucleated erythrocytes [Pres ence] in Blood by Automated countOrdered By: Lalo Carter on 04-25-2024 Nucleated RBC Auto Ql (Bld) 0.1 /100{WBC} 0-0.5 [facility] Partial Thromboplastin Timeo n 04-25-2024 aPTT Coag (Bld) [Time] 30.0 s Normal 25.1-36.5 [facility] Comment on above: Result Comment: A he matocrit value greater than 55% may lead to inaccurate results in coagulation testing. Patients having hematocrit values >55% require a special collection tube for coagulation studies. Please contact the laboratory at [phone] for redraw instructions. PERFORMED BY: [address] [place] [address] PATHOLOGIST SIDEROGRAPHIST ALVARO LEWIS M.D. Performed By: #### M G, LIPID, A1C WTH eA, BMP, HEPATIC #### [facility] [address] [place] [address] [place] Platelet mean volume [Entiti c volume] in Blood by Automated countOrdered By: Lalo Carter on 04-25-2024 Platelet mean volume (Bld) [Entitic vol] 8.0 fL Normal 6.3-10.7 [facility] Comment on above: Performed By: #### M G, LIPID, A1C WTH eA, BMP, HEPATIC #### [address] Platelets [#/volume] in Bloo d by Automated countOrdered By: Lalo Carter on 10-18-2024 Platelets (Bld) [#/Vol] 273 10*3/uL Normal 150-450 [facility] Comment on above: Performed By: #### M G, LIPID, A1C WTH eA, BMP, HEPATIC #### [facility] [address] Potassium [Moles/volume] in Serum or PlasmaOrdered By: Lalo Carter on 04-25-2024 Potassium [Moles/Vol] 5.2 mmol/L High 3.5-5.1 [facility] Comment on above: Order Comment: FASTI NG Y Performed By: #### M G, LIPID, A1C WTH eA, BMP, HEPATIC #### [facility] [address] Protein [Mass/volume] in Ser um or PlasmaOrdered By: Lalo Carter on 04-25-2024 Protein [Mass/Vol] 6.4 g/dL Normal 6.4-8.9 [facility] Comment on above: Order Comment: FASTI NG Y Performed By: #### M G, LIPID, A1C WTH eA, BMP, HEPATIC #### [facility] [address] Prothrombin time (PT)Ordered By: Lalo Carter on 04-25-2024 PT Coag (PPP) [Time] 12.9 s Normal 9.0-12.9 [facility] Comment on above: A hematocrit value g reater than 55% may lead to inaccurate results in coagulation testing. Patients having hematocrit values >55% require a special collection tube for coagulation studies. Please contact the laboratory at [phone] for redraw instructions. Result Comment: A he matocrit value greater than 55% may lead to inaccurate results in coagulation testing. Patients having hematocrit values >55% require a special collection tube for coagulation studies. Please contact the laboratory at [phone] for redraw instructions. Performed By: #### M G, LIPID, A1C WTH eA, BMP, HEPATIC #### [facility] [address] Serum globulin measurement b y calculation (mass/volume)Ordered By: Lalo Carter on 04-25-2024 Globulin (S) [Mass/Vol] 3.3 g/dL [facility] Comment on above: Order Comment: FASTGigner NG Y Performed By: #### M G, LIPID, A1C WTH eA, BMP, HEPATIC #### [facility] [address] Serum or plasma albumin/glob ulin mass ratioOrdered By: Lalo Carter on 04-25-2024 Albumin/Globulin [Mass ratio] 0.9 {ratio} [facility] Comment on above: Order Comment: FASTGinger NG Y Performed By: #### M G, LIPID, A1C WTH eA, BMP, HEPATIC #### [facility] [address] [place] [address] Serum or plasma anion gap de terminationOrdered By: Lalo Carter on 04-25-2024 Anion gap [Moles/Vol] 10.9 mmol/L Normal 6.0-15.0 [facility] Comment on above: Order Comment: FASTI NG Y Performed By: #### M G, LIPID, A1C WTH eA, BMP, HEPATIC #### [facility] [address] Serum or plasma high density lipoprotein (HDL) cholesterol measurementOrdered By: Lalo Carter on 04-25-2024 Cholesterol in HDL [Mass/Vol] 34 mg/dL Normal 23-92 [facility] Comment on above: HDL CHOL ATP-III CLA SSIFICATION Cardiovascular RiskHDL > or equal to 60 mg/dL LOWHDL < 40 mg/dL HIGH Order Comment: FASTI NG Y Result Comment: HDL CHOL ATP-III CLASSIFICATION Cardiovascular Risk HDL > or equal to 60 mg/dL LOW HDL < 40 mg/dL HIGH Performed By: #### M G, LIPID, A1C WTH eA, BMP, HEPATIC #### [facility] [address] Serum or plasma non-glucuron idated bilirubin measurement (mass/volume)Ordered By: Lalo Carter on 04-25-2024 Bilirubin.indirect [Mass/Vol] 0.4 mg/dL [facility] Serum or plasma total choles terol/high density lipoprotein (HDL) cholesterol mass ratOrdered By: Lalo Carter on 04-25-2024 Cholesterol.total/Cho lesterol in HDL [Mass ratio] 2.6 {ratio} Normal <5.0 [facility] Comment on above: Order Comment: BETSEY Blackburn Result Comment: PERF ORMED BY: [place] [address] PATHOLOGIST SIDEROGRAPHIST ALVARO LEWIS M.D. Performed By: #### M G, LIPID, A1C WTH eA, BMP, HEPATIC #### [facility] [address] [place] [address] [place] Sodium [Moles/volume] in Ser um or PlasmaOrdered By: Lalo Carter on 04-25-2024 Sodium [Moles/Vol] 138 mmol/L Normal 136-145 [facility] Comment on above: Order Comment: BETSEY Blackburn Performed By: #### M G, LIPID, A1C WTH eA, BMP, HEPATIC #### [facility] [address] [place] [address] [place] Triglyceride [Mass/volume] i n Serum or PlasmaOrdered By: Lalo Carter on 04-25-2024 Triglyceride [Mass/Vol] 92 mg/dL 0-149 [facility] Comment on above: TRIG ATP III CLASSIF ICATIONTRIG less than 150 mg/dL NormalTRIG 150-199 mg/dL Borderline highTRIG 200-500 mg/dL High TRIG greater than 500 mg/dL Very highStandard traceable to the Center for Disease Conrtrol and Prevention (CDC) test method. Troponin I High Sensitivityo n 04-25-2024 Troponin I High Sensitivity 18.1 pg/mL High 0.0-15.0 [facility] Comment on above: Result Comment: PERF ORMED BY: [place] [address] PATHOLOGIST SIDEROGRAPHIST ALVARO LEWIS M.D. Performed By: #### M G, LIPID, A1C WTH eA, BMP, HEPATIC #### [facility] [address] [place] [id number] [facility] Troponin I High Sensitivity 19.5 pg/mL High 0.0-15.0 [facility] Comment on above: Result Comment: PERF ORMED BY: [address] [place] [address] PATHOLOGIST SIDEROGRAPHIST ALVARO LEWIS M.D. Performed By: #### M G, LIPID, A1C WTH eA, BMP, HEPATIC #### [facility] [address] [place] [id number] [facility] Troponin I.cardiac [Mass/vol ume] in Serum or Plasma by Detection limit <= 0.01 ng/Ordered By: Lalo Carter on 04-25-2024 Troponin I.cardiac DL <= 0.01 ng/mL [Mass/Vol] 18.1 pg/mL High 0.0-15.0 [facility] Urea nitrogen [Mass/volume] in Serum or PlasmaOrdered By: Lalo Carter on 04-25-2024 Urea nitrogen [Mass/Vol] 31 mg/dL High 01-30 [facility] Comment on above: Order Comment: FASTI NG Y Performed By: #### M G, LIPID, A1C WTH eA, BMP, HEPATIC #### [facility] [address] [place] [id number] [facility] Office Visiton 01-07-2024 Follow-up visit [id number] Jenni Quinones 1940 F Date Provider Department Center 01/07/2024 JOSEFINA STEIN SYMONE [facility] Family History Problem Relation Age of Onset Diabetes Father Heart failure Father Other Other Family Status - Relation Status Age at Father Other Level of Service:[address]58 [place] OFFICE/OUTPATIENT ESTABLISHED MOD MDM [address] [facility] 37on 12-07-2023 37 Have blood drawn [...] pillows than normal or in recliner. Normal [facility] Office Visiton 12-07-2023 Follow-up visit [id number] Jenni Quinones 1940 F Date Provider Department Center 12/07/2023 Basilio-FARZANEH ARNDT CARD [facility] Family History Problem Relation Age of Onset Diabetes Father Heart failure Father Other Other Family Status - Relation Status Age at Father Other Level of Service:35482 [place] OFFICE/OUTPATIENT ESTABLISHED MOD MDM [address] [facility] 36on 11-16-2023 36 Regarding echo perfo rmed on 10/23/2023: MD Mariaa Fernandes MA; Farzaneh Arndt NP [place], she sees you soon, echo is consistent with volume overload, I could consider intensification of diuretics before determining the need for FARA Normal [facility] XR COMPARISON OF OUTSIDE HIRAL MSon 08-07-2023 XR COMPARISON OF OUTSIDE FILMS RADRPT There is no result for this study. This is a placeholder for comparison films only. Final result Normal [facility] XR COMPARISON OF OUTSIDE HIRAL MSon 05-29-2023 XR COMPARISON OF OUTSIDE FILMS RADRPT There is no result for this study. This is a placeholder for comparison films only. Final result Normal [facility] FLUORO FOR SURGICAL PROCEDUR ESon 05-09-2023 FLUORO FOR SURGICAL PROCEDURES RADRPT Radiology exam is complete. No Radiologist dictation. Please follow up with ordering provider. Final result Normal [facility] SURGICALon 05-09-2023 SURGICAL [place] [facility] JENNI QUINONES [id number] Assoc. Page 1 of [address] [place] [address] PROC: 05/09/2023 [facility] RECV: 05/11/[address] RPTD: 05/16/2023 [place] [address] LOC: LAY ACCT: [id number] SEX: F : 1940 AGE: 83 Y [...] negative. The CD138 demonstrates scattered plasma cells. [address] [place] and lambda surface immunoglobulin light chain LALO is performed with adequate controls. The kappa and lambda stains demonstrate a polytypic plasma cell population. Overall, there is no evidence of an atypical infiltrate. Malignancy is not identified. *This test was developed and its performance characteristics determined by [facility]. It has not been cleared or approved by the U.S. Food and Drug Administration. Pursuant to the requirements of CLIA, this laboratory has established and verified the test's accuracy and precision. Additional information about this type of test is available upon request. [id number] [phone] INDY PLATT M.D., F.C.A.P. 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 Page 1 of 1\X0D0A\[address]\X0D0A\[place] [address]\X0D0A\ PROC: 05/09/2023\X0D0A\[facility] RECV: 05/11/2023\X0D0A\[address] RPTD: 05/16/2023\X0D0A\[place] [address]\X0D0A\ LOC: WYA\X0D0A\ ACCT: [id number] SEX: F\X0D0A\ : 1940 AGE: 83 Y\X0D0A\X0D0A\ [...] negative. The CD138 demonstrates scattered plasma cells. [address] and\X0D0A\lambda surface immunoglobulin light chain LALO is performed with\X0D0A\adequate controls. The kappa and lambda stains demonstrate a polytypic\X0D0A\plasma cell population. Overall, there is no evidence of an atypical\X0D0A\infiltrate. Malignancy is not identified.\X0D0A\X0D0A\*This test was developed and its performance characteristics determined\X0D0A\by [facility]. It has not been cleared or\X0D0A\approved by the U.S. Food and Drug Administration. Pursuant to the\X0D0A\requirements of CLIA, this laboratory has established and verified the\X0D0A\test's accuracy and precision. Additional information about this type\X0D0A\of test is available upon request.\X0D0A\X0D0A\46840\X0D0A\58928\X0D0A\76067 x 3\X0D0A\51376\X0D0A\22846\X0D0A\X0D0A\X0D0A\X0D0A\ \X0D0A\ INDY PLATT M.D., F.C.A.P.\X0D0A\X0D0A\X0D0A\[facility]/ [facility] Printed on: 05/16/2023\X0D0A\[address]\X0D0A\[place], [place] [address]\X0D0A\Original print date: 05/16/2023 Performed By: #### 1 [id number] #### [facility] See Report DIGOXINon 12-06-2022 DIG <0.2 Critically low 0.9-2.0 [facility] Comment on above: Performed By: #### B LDCX2 #### [facility] [address] [address] [address] Lisa Martinez PROF CHEM 8 (BAS METB)on Anion gap [Moles/Vol] 9.6 mmol/L Normal [facility] Comment on above: Performed By: #### T SUPRIYAFT4, BMP ####[facility] [address] [place] [address]Dr. Lisa Martinez Calcium [Mass/Vol] 9.0 mg/dL Normal 8.5-10.1 [facility] Comment on above: Performed By: #### T SHRFT4, BMP ####[facility] [address] [place] [address]Dr. Lisa Martinez Chloride [Moles/Vol] 103 mmol/L Normal 98-107 [facility] Comment on above: Performed By: #### T SHRFT4, BMP ####[facility] [address] [place] [address]Dr. Lisa Martinez CO2 [Moles/Vol] 33.4 mmol/L Critically high 21.0-32.0 [facility] Comment on above: Performed By: #### T SHRFT4, BMP ####[facility] [address] [place] [address]DrIngrid Martinez Creatinine [Mass/Vol] 1.69 mg/dL Critically high 0.55-1.02 [facility] Comment on above: Performed By: #### T SHRFT4, BMP ####[facility] [address] [place] [address]Dr. Lisa Martinez EGFR-AF NICARAGUAN 35 mL/min/1.73m2 Critically low >=60 [facility] Comment on above: Performed By: #### T ALFRED4, BMP ####[facility] [address] [place] [address]Dr. Lisa Martinez EGFR-NON AF NICARAGUAN 29 mL/min/1.73m2 Critically low >=60 [facility] Comment on above: Performed By: #### T ALFRED4, BMP ####[facility] [address] [place], [place] [address]Dr. Lisa Martinez Glucose [Mass/Vol] 72 mg/dL Critically low 74-106 [facility] Comment on above: Performed By: #### T ALFRED4, BMP ####[facility] [address] [place], [place] [address]Dr. Lisa Martinez Potassium [Moles/Vol] 4.0 mmol/L Normal 3.5-5.1 [facility] Comment on above: Performed By: #### T ALFRED4, BMP ####[facility] [address] [place], [place] [address]Dr. Lisa Martinez Sodium [Moles/Vol] 142 mmol/L Normal 136-145 [facility] Comment on above: Performed By: #### T ALFRED4, BMP ####[facility] [address] [place], [place] [address]Dr. Lisa Martinez Urea nitrogen [Mass/Vol] 42.0 mg/dL Critically high 7.0-18.0 [facility] Comment on above: Performed By: #### T ALFRED4, BMP ####[facility] [address] [place], [place] [address]Dr. Lisa Martinez Urea nitrogen/Creatinine [Mass ratio] 24.9 mg/mg Normal [facility] Comment on above: Performed By: #### T ALFRED4, BMP ####[facility] [address] [place], [place] [address]Dr. Lisa Martinez TSH W/ REFLEX TO FT4on 12-06 TSH 2.427 uIU/mL Normal 0.358-3.740 [facility] Comment on above: Performed By: #### T SHRFT4, BMP ####[facility] [address] [place] [id number]. Lisa Martinez BNPon 11-15-2022 Natriuretic peptide B (Bld) [Mass/Vol] 6134.0 pg/mL Critically high <=1,800.0 [facility] Comment on above: Performed By: #### B RETAIL SUPPORT SPECIALIST, CMP, MG ####[facility] [address] [place] [id number]. Lisa Martinez CBC AUTO DIFFon 11-15-2022 BASO # 0.0 103/ul Normal 0.0-0.1 [facility] Comment on above: Performed By: #### K U #### [facility] [address] [address] [address] Lisa Martinez Basophils/100 WBC (Bld) 0.6 % Normal 0.2-2.0 [facility] Comment on above: Performed By: #### K U #### [facility] [address] [address] [address] Lisa Martinez EO # 0.2 103/ul Normal 0.0-0.7 [facility] Comment on above: Performed By: #### K U #### [facility] [address] [address] [address] Lisa Martinez Eosinophils/100 WBC (Bld) 2.9 % Normal 0.9-7.0 [facility] Comment on above: Performed By: #### K U #### [facility] [address] [address] [address] Lisa Martinez Erythrocyte distribution width (RBC) [Ratio] 14.9 % Normal 11.0-15.0 [facility] Comment on above: Performed By: #### K U #### [facility] [address] [address] [address] Lisa Martinez Hematocrit (Bld) [Volume fraction] 31.9 % Critically low 36.0-48.0 [facility] Comment on above: Performed By: #### K U #### [facility] [address] [address] [address] Lisa Martinez Hemoglobin (Bld) [Mass/Vol] 9.8 g/dL Critically low 12.0-16.0 [facility] Comment on above: Performed By: #### K U #### [facility] [address] [address] [address] Lisa Martinez IG # 0.02 10e3/ul Normal 0.00-0.03 [facility] Comment on above: Performed By: #### K U #### [facility] [address] [address] [address] Lisa Martinez IG % 0.3 % Normal 0.0-0.5 [facility] Comment on above: Performed By: #### K U #### [facility] [address] [place] [address] Dr. Lisa Martinez LYMPH # 0.7 103/ul Critically low 1.2-3.8 [facility] Comment on above: Performed By: #### K U #### [facility] [address] [place] [address] Dr. Lisa Martinez Lymphocytes/100 WBC (Bld) 10.9 % Critically low 20.5-60.0 [facility] Comment on above: Performed By: #### K U #### [facility] [address] [place] [address] Dr. Lisa Martinez MANUAL DIFF REQ NO Normal [facility] Comment on above: Performed By: #### K U #### [facility] [address] [place] [address] Dr. Lisa Martinez MCH (RBC) [Entitic mass] 29.1 pg Normal 26.7-34.0 [facility] Comment on above: Performed By: #### K U #### [facility] [address] [place] [address] Dr. Lisa Martinez MCHC (RBC) [Mass/Vol] 30.7 g/dL Normal 29.9-35.2 [facility] Comment on above: Performed By: #### K U #### [facility] [address] [place] [address] Dr. Lisa Martinez MCV (RBC) [Entitic vol] 94.7 fL Normal 81.0-99.0 [facility] Comment on above: Performed By: #### K U #### [facility] [address] [place] [address] Dr. Lisa Martinez MONO # 0.8 103/ul Normal 0.3-0.8 [facility] Comment on above: Performed By: #### K U #### [facility] [address] [place] [address] Dr. Lisa Martinez Monocytes/100 WBC (Bld) 12.2 % Critically high 1.7-12.0 [facility] Comment on above: Performed By: #### K U #### [facility] [address] [place] [address] Dr. Lisa Martinez NEUT # 4.6 103/ul Normal 1.4-6.5 [facility] Comment on above: Performed By: #### K U #### [facility] [address] [place] [address] Dr. Lisa Martinez Neutrophils/100 WBC (Bld) 73.1 % Normal 43.0-75.0 [facility] Comment on above: Performed By: #### K U #### [facility] [address] [place] [address] Dr. Lisa Martinez Platelet mean volume (Bld) [Entitic vol] 10.2 fL Normal 9.5-13.5 [facility] Comment on above: Performed By: #### K U #### [facility] [address] [place] [address] Dr. Lisa Martinez PLT 186 103/ul Normal 150-450 [facility] Comment on above: Performed By: #### K U #### [facility] [address] [place] [address] Dr. Lisa Martinez RBC 3.37 106/ul Critically low 4.20-5.[address] [facility] Comment on above: Performed By: #### K U #### [facility] [address] [place] [address] Dr. Lisa Martinez WBC 6.3 103/ul Normal 4.0-11.0 [facility] Comment on above: Performed By: #### K U #### [facility] [address] [address] [address] Lisa Martinez CHLORIDE URINE RANDOMon 11-06 Chloride, Urine 126 mmol/L Normal Not Estab. [facility] Comment on above: Performed By: #### B LDCX2 #### [facility] [address] [address] [address] Lisa Martinez CULTURE URINEon 11-15-2022 CULTURE [...] F Trimethoprim/Sulfamethoxa zole <=20 S F Normal [facility] Comment on above: Performed By: #### U RCX #### [facility] [address] [address] [address] Lisa Martinez DIGOXINon 11-15-2022 DIG 0.3 ng/mL Critically low 0.9-2.0 [facility] Comment on above: Performed By: #### B RETAIL SUPPORT SPECIALIST, BMP #### [facility] [address] [address] [address] Lisa Martinez MAGNESIUMon 11-15-2022 Magnesium [Mass/Vol] 2.2 mg/dL Normal 1.8-2.4 [facility] Comment on above: Performed By: #### B RETAIL SUPPORT SPECIALIST, CMP, MG ####[facility] [address] [place], [place] [address]Dr. Lisa Martinez POINT OF CARE GLUCOSEon 11-06 Glucose [Mass/Vol] 164 mg/dL Critically high 74-106 [facility] Comment on above: Performed By: #### C BC #### [facility] [address] [address] [address] Lisa Martinez PROF 14(COMP METB)on 023 Albumin [Mass/Vol] 3.3 g/dL Critically low 3.4-5.0 [facility] Comment on above: Performed By: #### B RETAIL SUPPORT SPECIALIST, CMP, MG ####[facility] [address] [place] [address]Dr. Lisa Martinez Albumin/Globulin [Mass ratio] 0.7 {ratio} Normal [facility] Comment on above: Performed By: #### B RETAIL SUPPORT SPECIALIST, CMP, MG ####[facility] [address] [place] [address]Dr. Lisa Martinez ALP [Catalytic activity/Vol] 75 U/L Normal 46-116 [facility] Comment on above: Performed By: #### B RETAIL SUPPORT SPECIALIST, CMP, MG ####[facility] [address] [place] [address]Dr. Lisa Martinez ALT [Catalytic activity/Vol] 14 U/L Normal 14-59 [facility] Comment on above: Performed By: #### B RETAIL SUPPORT SPECIALIST, CMP, MG ####[facility] [address] [place] [address]Dr. Lisa Martinez Anion gap [Moles/Vol] 11.1 mmol/L Normal [facility] Comment on above: Performed By: #### B RETAIL SUPPORT SPECIALIST, CMP, MG ####[facility] [address] [place] [address]Dr. Lisa Martinez AST [Catalytic activity/Vol] 14 U/L Critically low 15-37 [facility] Comment on above: Performed By: #### B RETAIL SUPPORT SPECIALIST, CMP, MG ####[facility] [address] [place] [address]Dr. Lisa Martinez Bilirubin [Mass/Vol] 0.9 mg/dL Normal 0.2-1.0 [facility] Comment on above: Performed By: #### B RETAIL SUPPORT SPECIALIST, CMP, MG ####[facility] [address] [place] [address]Dr. Lisa Martinez Calcium [Mass/Vol] 9.1 mg/dL Normal 8.5-10.1 [facility] Comment on above: Performed By: #### B RETAIL SUPPORT SPECIALIST, CMP, MG ####[facility] [address] [place] [address]Dr. Lisa Martinez Chloride [Moles/Vol] 100 mmol/L Normal 98-107 [facility] Comment on above: Performed By: #### B RETAIL SUPPORT SPECIALIST, CMP, MG ####[facility] [address] [place] [address]Dr. Lisa Martinez CO2 [Moles/Vol] 32.6 mmol/L Critically high 21.0-32.0 [facility] Comment on above: Performed By: #### B RETAIL SUPPORT SPECIALIST, CMP, MG ####[facility] [address] [place] [address]Dr. Lisa Martinez Creatinine [Mass/Vol] 2.65 mg/dL Critically high 0.55-1.02 [facility] Comment on above: Performed By: #### B RETAIL SUPPORT SPECIALIST, CMP, MG ####[facility] [address] [place], [place] [address]Dr. Lisa Martinez EGFR-AF NICARAGUAN 21 mL/min/1.73m2 Critically low >=60 [facility] Comment on above: Performed By: #### B RETAIL SUPPORT SPECIALIST, CMP, MG ####[facility] [address] [place], [place] [address]Dr. Lisa Martinez EGFR-NON AF NICARAGUAN 17 mL/min/1.73m2 Critically low >=60 [facility] Comment on above: Performed By: #### B RETAIL SUPPORT SPECIALIST, CMP, MG ####[facility] [address] [place] [address]Dr. Lisa Martinez Globulin (S) [Mass/Vol] 4.7 g/dL Normal [facility] Comment on above: Performed By: #### B RETAIL SUPPORT SPECIALIST, CMP, MG ####[facility] [address] [place] [address]Dr. Lisa Martinez Glucose [Mass/Vol] 131 mg/dL Critically high 74-106 [facility] Comment on above: Performed By: #### B RETAIL SUPPORT SPECIALIST, CMP, MG ####[facility] [address] [place] [address]Dr. Lisa Martinez Potassium [Moles/Vol] 3.7 mmol/L Normal 3.5-5.1 [facility] Comment on above: Performed By: #### B RETAIL SUPPORT SPECIALIST, CMP, MG ####[facility] [address] [place] [address]Dr. Lisa Martinez Protein [Mass/Vol] 8.0 g/dL Normal 6.4-8.2 [facility] Comment on above: Performed By: #### B RETAIL SUPPORT SPECIALIST, CMP, MG ####[facility] [address] [place], [place] [address]Dr. Lisa Martinez Sodium [Moles/Vol] 140 mmol/L Normal 136-145 [facility] Comment on above: Performed By: #### B RETAIL SUPPORT SPECIALIST, CMP, MG ####[facility] [address] [place], [place] [address]Dr. Lisa Martinez Urea nitrogen [Mass/Vol] 66.0 mg/dL Critically high 7.0-18.0 [facility] Comment on above: Performed By: #### B RETAIL SUPPORT SPECIALIST, CMP, MG ####[facility] [id number] [address]Dr. Lisa Martinez Urea nitrogen/Creatinine [Mass ratio] 24.9 mg/mg Normal [facility] Comment on above: Performed By: #### B RETAIL SUPPORT SPECIALIST, CMP, MG ####[facility] [id number] [address]Dr. Lisa Martinez UREA NITROGEN, RANDOM URon 0 11-15-2022 Urea Nitrogen, Urine 165 mg/dL Normal Not Estab. [facility] Comment on above: Performed By: #### U NR ####[facility] [id number] [place], [place] [address]Dr. Lisa Martinez BNPon 11-14-2022 Natriuretic peptide B (Bld) [Mass/Vol] 8525.0 pg/mL Critically high <=1,800.0 [facility] Comment on above: Performed By: #### B RETAIL SUPPORT SPECIALIST ####[facility] [address] [address]Dr. Lisa Martinez CBC AUTO DIFFon 11-14-2022 BASO # 0.0 103/ul Normal 0.0-0.1 [facility] Comment on above: Performed By: #### C VDTBH #### [facility] [address] [place] [address] Dr. Lisa Martinez Basophils/100 WBC (Bld) 0.5 % Normal 0.2-2.0 [facility] Comment on above: Performed By: #### C VDTBH #### [facility] [address] [place] [address] Dr. Lisa Martinez EO # 0.2 103/ul Normal 0.0-0.7 [facility] Comment on above: Performed By: #### C VDTBH #### [facility] [address] [place] [address] Dr. Lisa Martinez Eosinophils/100 WBC (Bld) 3.4 % Normal 0.9-7.0 [facility] Comment on above: Performed By: #### C VDTBH #### [facility] [address] [place] [address] Dr. Lisa Martinez Erythrocyte distribution width (RBC) [Ratio] 14.9 % Normal 11.0-15.0 [facility] Comment on above: Performed By: #### C VDTBH #### [facility] [address] [place] [address] Dr. Lias Martinez Hematocrit (Bld) [Volume fraction] 31.3 % Critically low 36.0-48.0 [facility] Comment on above: Performed By: #### C VDTBH #### [facility] [address] [place] [address] Dr. Lisa Martinez Hemoglobin (Bld) [Mass/Vol] 9.4 g/dL Critically low 12.0-16.0 [facility] Comment on above: Performed By: #### C VDTBH #### [facility] [address] [place] [address] Dr. Lisa Martinez IG # 0.01 10e3/ul Normal 0.00-0.03 [facility] Comment on above: Performed By: #### C VDTBH #### [facility] [address] [place] [address] Dr. Lisa Martinez IG % 0.2 % Normal 0.0-0.5 [facility] Comment on above: Performed By: #### C VDTBH #### [facility] [address] [place] [address] Dr. Lisa Martinez LYMPH # 0.9 103/ul Critically low 1.2-3.8 [facility] Comment on above: Performed By: #### C VDTBH #### [facility] [address] [place] [address] Dr. Lisa Martinez Lymphocytes/100 WBC (Bld) 15.2 % Critically low 20.5-60.0 [facility] Comment on above: Performed By: #### C VDTBH #### [facility] [address] [place] [address] Dr. Lisa Martinez MANUAL DIFF REQ NO Normal [facility] Comment on above: Performed By: #### C VDTBH #### [facility] [address] [place] [address] Dr. Lisa Martinez MCH (RBC) [Entitic mass] 29.0 pg Normal 26.7-34.0 [facility] Comment on above: Performed By: #### C VDTBH #### [facility] [address] [place] [address] Dr. Lisa Martinez MCHC (RBC) [Mass/Vol] 30.0 g/dL Normal 29.9-35.2 [facility] Comment on above: Performed By: #### C VDTBH #### [facility] [address] [place] [address] Dr. Lisa Martinez MCV (RBC) [Entitic vol] 96.6 fL Normal 81.0-99.0 [facility] Comment on above: Performed By: #### C VDTBH #### [facility] [address] [place] [address] Dr. Lisa Martinez MONO # 0.6 103/ul Normal 0.3-0.8 [facility] Comment on above: Performed By: #### C VDTBH #### [facility] [address] [place] [address] Dr. Lisa Martinez Monocytes/100 WBC (Bld) 10.2 % Normal 1.7-12.0 [facility] Comment on above: Performed By: #### C VDTBH #### [facility] [address] [place] [address] Dr. Lisa Martinez NEUT # 4.0 103/ul Normal 1.4-6.5 [facility] Comment on above: Performed By: #### C VDTBH #### [facility] [address] [place] [address] Dr. Lisa Martinez Neutrophils/100 WBC (Bld) 70.5 % Normal 43.0-75.0 [facility] Comment on above: Performed By: #### C VDTBH #### [facility] [address] [place] [address] Dr. Lisa Martinez Platelet mean volume (Bld) [Entitic vol] 10.3 fL Normal 9.5-13.5 [facility] Comment on above: Performed By: #### C VDTBH #### [facility] [address] [place] [address] Dr. Lisa Martinez PLT 192 103/ul Normal 150-450 [facility] Comment on above: Performed By: #### C VDTBH #### [facility] [address] [place] [address] Dr. Lisa Martinez RBC 3.24 106/ul Critically low 4.20-5.[address] [facility] Comment on above: Performed By: #### C VDTBH #### [facility] [address] [place] [address] Dr. Lisa Martinez WBC 5.7 103/ul Normal 4.0-11.0 [facility] Comment on above: Performed By: #### C VDTBH #### [facility] [address] [place] [address] Dr. Lisa Martinez D-DIMERon 11-14-2022 D-DIMER 0.82 mg/L FEU Critically high <=0.59 [facility] Comment on above: Performed By: #### B RETAIL SUPPORT SPECIALIST, BMP #### [facility] [address] [address] [address] Lisa Martinez D-DIMER COMMENTS SEE BELOW Normal [facility] Comment on above: Result Comment: Incr eases [...] and generalized hospitalization. Performed By: #### B RETAIL SUPPORT SPECIALIST, BMP #### [facility] [address] [address] [address] Lisa Martinez ECHO LIMITED STUDYon 023 ECHO LIMITED STUDY Patient: URSZULA QUINONES Exam Date: 11/14/2022 : 1940 Gender:F Ordering : DR ROBERTO ZIMMERMAN . Admission #: [id number] Family : Order #: [id number] CLICK HERE TO VIEW EXAM ECHOCARDIOGRAM REPORT [...] M.D. on 11/14/2022 at 16:43 Normal [facility] MAGNESIUMon 11-14-2022 Magnesium [Mass/Vol] 2.3 mg/dL Normal 1.8-2.4 [facility] Comment on above: Performed By: #### U RCX #### [facility] [address] [place] [address] Dr. Lisa Martinez NM LUNG VENT_PERFon 11-15-19 [...] by: SADIE GARCIA Date: 2022-11-14 19:11 Normal [facility] OCC BLD IMMUNO SCREENon OCCULT BLOOD Negative Normal NEGATIVE [facility] Comment on above: Performed By: #### B LDCX2 #### [facility] [address] [address] [address] Lisa Martinez POINT OF CARE GLUCOSEon Glucose [Mass/Vol] 155 mg/dL Critically high 74-106 [facility] Comment on above: Performed By: #### P OCGLUC ####[facility] [address] [address]Dr. Lisa Martinez Glucose [Mass/Vol] 148 mg/dL Critically high 74-106 [facility] Comment on above: Performed By: #### B LDCX2 #### [facility] [address] [address] [address] Lisa Martinez Glucose [Mass/Vol] 76 mg/dL Normal 74-106 [facility] Comment on above: Performed By: #### B LDCX2 #### [facility] [address] [address] [address] Lisa Martinez POTASSIUM URINEon 11-14-2022 UR POTASSIUM 21.3 mmol/L Normal [facility] Comment on above: Performed By: #### K U #### [facility] [address] [address] [address] Lisa Martinez PROF 14(COMP METB)on 023 Albumin [Mass/Vol] 3.3 g/dL Critically low 3.4-5.0 [facility] Comment on above: Performed By: #### U RCX #### [facility] [address] [place] [address] Dr. Lisa Martinez Albumin/Globulin [Mass ratio] 0.7 {ratio} Normal [facility] Comment on above: Performed By: #### U RCX #### [facility] [address] [address] [address] Lisa Martinez ALP [Catalytic activity/Vol] 72 U/L Normal 46-116 [facility] Comment on above: Performed By: #### U RCX #### [facility] [address] [address] [address] Lisa Martinez ALT [Catalytic activity/Vol] 16 U/L Normal 14-59 [facility] Comment on above: Performed By: #### U RCX #### [facility] [address] [address] [address] Lisa Martinez Anion gap [Moles/Vol] 13.0 mmol/L Normal [facility] Comment on above: Performed By: #### U RCX #### [facility] [address] [address] [address] Lisa Martinez AST [Catalytic activity/Vol] 13 U/L Critically low 15-37 [facility] Comment on above: Performed By: #### U RCX #### [facility] [address] [address] [address] Lisa Martinez Bilirubin [Mass/Vol] 0.8 mg/dL Normal 0.2-1.0 [facility] Comment on above: Performed By: #### U RCX #### [facility] [address] [address] [address] Lisa Martinez Calcium [Mass/Vol] 9.0 mg/dL Normal 8.5-10.1 [facility] Comment on above: Performed By: #### U RCX #### [facility] [address] [address] [address] Lisa Martinez Chloride [Moles/Vol] 100 mmol/L Normal 98-107 [facility] Comment on above: Performed By: #### U RCX #### [facility] [address] [address] [address] Lisa Martinez CO2 [Moles/Vol] 30.0 mmol/L Normal 21.0-32.0 [facility] Comment on above: Performed By: #### U RCX #### [facility] [address] [address] [address] Lisa Martinez Creatinine [Mass/Vol] 2.79 mg/dL Critically high 0.55-1.02 [facility] Comment on above: Performed By: #### U RCX #### [facility] [address] [address] [address] Lisa Martinez EGFR-AF NICARAGUAN 20 mL/min/1.73m2 Critically low >=60 [facility] Comment on above: Performed By: #### U RCX #### [facility] [address] [address] [address] Lisa Martinez EGFR-NON AF NICARAGUAN 16 mL/min/1.73m2 Critically low >=60 [facility] Comment on above: Performed By: #### U RCX #### [facility] [address] [address] [address] Lisa Martinez Globulin (S) [Mass/Vol] 4.6 g/dL Normal [facility] Comment on above: Performed By: #### U RCX #### [facility] [address] [address] [address] Lisa Martinez Glucose [Mass/Vol] 153 mg/dL Critically high 74-106 [facility] Comment on above: Performed By: #### U RCX #### [facility] [address] [address] [address] Lisa Martinez Potassium [Moles/Vol] 4.0 mmol/L Normal 3.5-5.1 [facility] Comment on above: Performed By: #### U RCX #### [facility] [address] [address] [address] Lisa Martinez Protein [Mass/Vol] 7.9 g/dL Normal 6.4-8.2 [facility] Comment on above: Performed By: #### U RCX #### [facility] [address] [address] [address] Lisa Martinez Sodium [Moles/Vol] 139 mmol/L Normal 136-145 [facility] Comment on above: Performed By: #### U RCX #### [facility] [address] [address] [address] Lisa Martinez Urea nitrogen [Mass/Vol] 67.0 mg/dL Critically high 7.0-18.0 [facility] Comment on above: Performed By: #### U RCX #### [facility] [address] [address] [address] Lisa Martinez Urea nitrogen/Creatinine [Mass ratio] 24.0 mg/mg Normal [facility] Comment on above: Performed By: #### U RCX #### [facility] [address] [address] [address] Lisa Martinez SODIUM RANDOM URINEon 2022 Sodium (U) [Moles/Vol] 122 mmol/L Critically high 30-90 [facility] Comment on above: Performed By: #### B RETAIL SUPPORT SPECIALIST, BMP #### [facility] [address] [place] [address] Dr. Lisa Martinez T3, TOTAL (TRIIODOTHYRONINE) on 11-14-2022 T3, TOTAL 84 ng/dL Normal 71-180 [facility] Comment on above: Performed By: #### U RCX #### [facility] [address] [place] [address] Dr. Lisa Martinez BNPon 11-13-2022 Natriuretic peptide B (Bld) [Mass/Vol] 71737.0 pg/mL Critically high <=1,800.0 [facility] Comment on above: Performed By: #### B MP, HSTROPN, BNP ####[facility] [id number] [place] [address]Dr. Lisa Martinez CARDIAC DONY 3-6on 3 CK [Catalytic activity/Vol] 60 U/L Normal 26-192 [facility] Comment on above: Performed By: #### C MREP ####[facility] [address] [place] [address]Dr. Lisa Martinez CK.MB [Mass/Vol] 0.96 ng/mL Normal <=3.60 [facility] Comment on above: Performed By: #### C MREP ####[facility] [address] [address]Dr. Lisa Maritnez HSTROP 16.3 pg/mL Normal 4.0-51.3 [facility] Comment on above: Result Comment: CUT- OFF POINTS HAVE BEEN ESTABLISHED BASED ON THE FOURTH UNIVERSAL DEFINITIONS OF MYOCARDIAL INFARCTION. THE UPPER REFERENCE LIMIT (URL) OF TROPONIN, DEFINED THE 99TH PERCENTILE OF cTnI DISTRIBUTION IN A REFERENCE POPULATION, HAS BEEN CONFIRMED THE DECISION THRESHOLD FOR [place] DIAGNOSIS. Performed By: #### C MREP ####[facility] [address] [place] [address]Dr. Lisa Martinez CK [Catalytic activity/Vol] 60 U/L Normal 26-192 [facility] Comment on above: Performed By: #### C BC #### [facility] [address] [place] [address] Dr. Lisa Martinez CK.MB [Mass/Vol] 0.94 ng/mL Normal <=3.60 [facility] Comment on above: Performed By: #### C BC #### [facility] [address] [place] [address] Dr. Lisa Martinez HSTROP 15.1 pg/mL Normal 4.0-51.3 [facility] Comment on above: Result Comment: CUT- OFF POINTS HAVE BEEN ESTABLISHED BASED ON THE FOURTH UNIVERSAL DEFINITIONS OF MYOCARDIAL INFARCTION. THE UPPER REFERENCE LIMIT (URL) OF TROPONIN, DEFINED THE 99TH PERCENTILE OF cTnI DISTRIBUTION IN A REFERENCE POPULATION, HAS BEEN CONFIRMED THE DECISION THRESHOLD FOR [place] DIAGNOSIS. Performed By: #### C BC #### [facility] [address] [place] [address] Dr. Lisa Martinez CBC AUTO DIFFon 11-13-2022 BASO # 0.1 103/ul Normal 0.0-0.1 [facility] Comment on above: Performed By: #### C BC #### [facility] [address] [place] [address] Dr. Lisa Martinez Basophils/100 WBC (Bld) 0.6 % Normal 0.2-2.0 [facility] Comment on above: Performed By: #### C BC #### [facility] [address] [address] [address] Lisa Martinez EO # 0.2 103/ul Normal 0.0-0.7 [facility] Comment on above: Performed By: #### C BC #### [facility] [address] [place] [address] Dr. Lisa Martinez Eosinophils/100 WBC (Bld) 1.8 % Normal 0.9-7.0 [facility] Comment on above: Performed By: #### C BC #### [facility] [address] [place] [address] Dr. Lisa Martinez Erythrocyte distribution width (RBC) [Ratio] 15.0 % Normal 11.0-15.0 [facility] Comment on above: Performed By: #### C BC #### [facility] [address] [place] [address] Dr. Lisa Martinez Hematocrit (Bld) [Volume fraction] 32.9 % Critically low 36.0-48.0 [facility] Comment on above: Performed By: #### C BC #### [facility] [address] [place] [address] Dr. Lisa Martinez Hemoglobin (Bld) [Mass/Vol] 9.8 g/dL Critically low 12.0-16.0 [facility] Comment on above: Performed By: #### C BC #### [facility] [address] [place] [address] Dr. Lisa Martinez IG # 0.02 10e3/ul Normal 0.00-0.03 [facility] Comment on above: Performed By: #### C BC #### [facility] [address] [place] [address] Dr. Lisa Martinez IG % 0.2 % Normal 0.0-0.5 [facility] Comment on above: Performed By: #### C BC #### [facility] [address] [place] [address] Dr. Lisa Martinez LYMPH # 0.7 103/ul Critically low 1.2-3.8 [facility] Comment on above: Performed By: #### C BC #### [facility] [address] [place] [address] Dr. Lisa Martinez Lymphocytes/100 WBC (Bld) 7.8 % Critically low 20.5-60.0 [facility] Comment on above: Performed By: #### C BC #### [facility] [address] [place] [address] Dr. Lisa Martinez MANUAL DIFF REQ NO Normal [facility] Comment on above: Performed By: #### C BC #### [facility] [address] [place] [address] Dr. Lisa Martinez MCH (RBC) [Entitic mass] 29.4 pg Normal 26.7-34.0 [facility] Comment on above: Performed By: #### C BC #### [facility] [address] [place] [address] Dr. Lisa Martinez MCHC (RBC) [Mass/Vol] 29.8 g/dL Critically low 29.9-35.2 [facility] Comment on above: Performed By: #### C BC #### [facility] [address] [place] [address] Dr. Lisa Martinez MCV (RBC) [Entitic vol] 98.8 fL Normal 81.0-99.0 [facility] Comment on above: Performed By: #### C BC #### [facility] [address] [place] [address] Dr. Lisa Martinez MONO # 0.7 103/ul Normal 0.3-0.8 [facility] Comment on above: Performed By: #### C BC #### [facility] [address] [place] [address] Dr. Lisa Martinez Monocytes/100 WBC (Bld) 7.6 % Normal 1.7-12.0 [facility] Comment on above: Performed By: #### C BC #### [facility] [address] [place] [address] Dr. Lisa Martinez NEUT # 7.0 103/ul Critically high 1.4-6.[address] [facility] Comment on above: Performed By: #### C BC #### [facility] [address] [place] [address] Dr. Lisa Martinez Neutrophils/100 WBC (Bld) 82.0 % Critically high 43.0-75.0 [facility] Comment on above: Performed By: #### C BC #### [facility] [address] [place] [address] Dr. Lisa Martinez Platelet mean volume (Bld) [Entitic vol] 10.6 fL Normal 9.5-13.5 [facility] Comment on above: Performed By: #### C BC #### [facility] [address] [place] [address] Dr. Lisa Martinez PLT 209 103/ul Normal 150-450 [facility] Comment on above: Performed By: #### C BC #### [facility] [address] [place] [address] Dr. Lisa Martinez RBC 3.33 106/ul Critically low 4.20-5.40 [facility] Comment on above: Performed By: #### C BC #### [facility] [address] [place] [address] Dr. Lisa Martinez WBC 8.6 103/ul Normal 4.0-11.0 [facility] Comment on above: Performed By: #### C BC #### [facility] [address] [place] [address] Dr. Lisa Martinez LACTATE/LACTIC ACIDon 2022 Lactate [Moles/Vol] 3.4 mmol/L Critically high 0.4-2.0 [facility] Comment on above: Performed By: #### L ACT ####[facility] [address] [address]Dr. Lisa Martinez MAGNESIUMon 11-13-2022 Magnesium [Mass/Vol] 2.6 mg/dL Critically high 1.8-2.4 [facility] Comment on above: Performed By: #### B RETAIL SUPPORT SPECIALIST, BMP #### [facility] [address] [place] [address] Dr. Lisa Martinez PROF CHEM 8 (BAS METB)on Anion gap [Moles/Vol] 15.7 mmol/L Normal [facility] Comment on above: Performed By: #### C BC #### [facility] [address] [address] [address] Lisa Martinez Calcium [Mass/Vol] 9.1 mg/dL Normal 8.5-10.1 [facility] Comment on above: Performed By: #### C BC #### [facility] [address] [address] [address] Lisa Martinez Chloride [Moles/Vol] 103 mmol/L Normal 98-107 [facility] Comment on above: Performed By: #### C BC #### [facility] [address] [address] [address] Lisa Martinez CO2 [Moles/Vol] 27.2 mmol/L Normal 21.0-32.0 [facility] Comment on above: Performed By: #### C BC #### [facility] [address] [address] [address] Lisa Martinez Creatinine [Mass/Vol] 2.91 mg/dL Critically high 0.55-1.02 [facility] Comment on above: Performed By: #### C BC #### [facility] [address] [address] [address] Lisa Martinez EGFR-AF NICARAGUAN 19 mL/min/1.73m2 Critically low >=60 [facility] Comment on above: Performed By: #### C BC #### [facility] [address] [address] [address] Lisa Martinez EGFR-NON AF NICARAGUAN 15 mL/min/1.73m2 Critically low >=60 [facility] Comment on above: Performed By: #### C BC #### [facility] [address] [address] [address] Lisa Martinez Glucose [Mass/Vol] 172 mg/dL Critically high 74-106 [facility] Comment on above: Performed By: #### C BC #### [facility] [address] [address] [address] Lisa Martinez Potassium [Moles/Vol] 4.9 mmol/L Normal 3.5-5.1 [facility] Comment on above: Performed By: #### C BC #### [facility] [address] [address] [address] Lisa Martinez Sodium [Moles/Vol] 141 mmol/L Normal 136-145 [facility] Comment on above: Performed By: #### C BC #### [facility] [address] [address] [address] Lisa Martinez Urea nitrogen [Mass/Vol] 64.0 mg/dL Critically high 7.0-18.0 [facility] Comment on above: Performed By: #### C BC #### [facility] [address] [address] [address] Lisa Martinez Urea nitrogen/Creatinine [Mass ratio] 22.0 mg/mg Normal [facility] Comment on above: Performed By: #### C BC #### [facility] [address] [address] [address] Lisa Martinez Anion gap [Moles/Vol] 17.4 mmol/L Normal [facility] Comment on above: Performed By: #### B MP, HSTROPN, BNP ####[facility] [address] [address]DrIngrid Martinez Calcium [Mass/Vol] 9.1 mg/dL Normal 8.5-10.1 [facility] Comment on above: Performed By: #### B MP, HSTROPN, BNP ####[facility] [address] [place] [address]DrIngrid Martinez Chloride [Moles/Vol] 104 mmol/L Normal 98-107 [facility] Comment on above: Performed By: #### B MP, HSTROPN, BNP ####[facility] [address] [place] [address]DrIngrid Martinez CO2 [Moles/Vol] 26.9 mmol/L Normal 21.0-32.0 [facility] Comment on above: Performed By: #### B MP, HSTROPN, BNP ####[facility] [address] [place] [address]DrIngrid Martinez Creatinine [Mass/Vol] 3.12 mg/dL Critically high 0.55-1.02 [facility] Comment on above: Performed By: #### B MP, HSTROPN, BNP ####[facility] [address] [address]Dr. Lisa Martinez EGFR-AF NICARAGUAN 17 mL/min/1.73m2 Critically low >=60 [facility] Comment on above: Performed By: #### B MP, HSTROPN, BNP ####[facility] [address] [address]Dr. Lisa Martinez EGFR-NON AF NICARAGUAN 14 mL/min/1.73m2 Critically low >=60 [facility] Comment on above: Performed By: #### B MP, HSTROPN, BNP ####[facility] [address] [place], [place] [address]Dr. Lisa Martinez Glucose [Mass/Vol] 131 mg/dL Critically high 74-106 [facility] Comment on above: Performed By: #### B MP, HSTROPN, BNP ####[facility] [address] [place], [place] [address]Dr. Lisa Martinez Potassium [Moles/Vol] 5.3 mmol/L Critically high 3.5-5.1 [facility] Comment on above: Performed By: #### B MP, HSTROPN, BNP ####[facility] [address] [place], [place] [address]Dr. Lisa Martinez Sodium [Moles/Vol] 143 mmol/L Normal 136-145 [facility] Comment on above: Performed By: #### B MP, HSTROPN, BNP ####[facility] [address] [place], [place] [address]Dr. Lisa Martinez Urea nitrogen [Mass/Vol] 59.0 mg/dL Critically high 7.0-18.0 [facility] Comment on above: Performed By: #### B MP, HSTROPN, BNP ####[facility] [address] [place], [place] [address]Dr. Lisa Martinez Urea nitrogen/Creatinine [Mass ratio] 18.9 mg/mg Normal [facility] Comment on above: Performed By: #### B MP, HSTROPN, BNP ####[facility] [id number] [place], [place] [address]UnDr. Lisa Martinez SYMPTOMATIC COVID-19 ANTIGEN on 11-13-2022 EUA Statement SEE BELOW Normal [facility] Comment on above: Result Comment: This test [...] sooner. Performed By: #### C VDTBH #### [facility] [address] [place] [address] Dr. Lisa Martinez SARS-CoV-2 (COVID-19) RNA RACIEL+probe Ql (Unsp spec) Negative Normal NEGATIVE [facility] Comment on above: Performed By: #### C VDTB #### [facility] [address] [address] [address] Lisa Martinez T4on 11-13-2022 T4 [Mass/Vol] 6.70 ug/dL Normal 4.80-13.90 [facility] Comment on above: Performed By: #### B RETAIL SUPPORT SPECIALIST, BMP #### [facility] [address] [address] [address] Lisa Martinez TROPONIN, HIGH SENSITIVITYon 11-13-2022 HSTROP 17.9 pg/mL Normal 4.0-51.3 [facility] Comment on above: Result Comment: CUT- OFF POINTS HAVE BEEN ESTABLISHED BASED ON THE FOURTH UNIVERSAL DEFINITIONS OF MYOCARDIAL INFARCTION. THE UPPER REFERENCE LIMIT (URL) OF TROPONIN, DEFINED THE 99TH PERCENTILE OF cTnI DISTRIBUTION IN A REFERENCE POPULATION, HAS BEEN CONFIRMED THE DECISION THRESHOLD FOR NV DIAGNOSIS. Performed By: #### B MP, HSTROPN, BNP ####[facility] [id number] [address]Dr. Lisa Martinez TSHon 11-13-2022 TSH 5.233 uIU/mL Critically high 0.358-3.740 [facility] Comment on above: Performed By: #### B RETAIL SUPPORT SPECIALIST, BMP #### [facility] [address] [address] [address] Lisa Martinez UA RANDOM W/MICROSCOPICon BACTERIA SMALL Abnormal NONE SEEN [facility] Comment on above: Performed By: #### K U #### [facility] [address] [place] [address] Dr. Lisa Martinez Bilirubin Ql (U) Negative Normal NEGATIVE [facility] Comment on above: Performed By: #### K U #### [facility] [address] [place] [address] Dr. Lisa Martinez CAST SEEN Abnormal NONE SEEN [facility] Comment on above: Performed By: #### K U #### [facility] [address] [place] [address] Dr. Lisa Martinez Clarity (U) CLEAR Normal CLEAR [facility] Comment on above: Performed By: #### K U #### [facility] [address] [place] [address] Dr. Lisa Martinez Color (U) LT. YELLOW Normal YELLOW [facility] Comment on above: Performed By: #### K U #### [facility] [address] [address] [address] Lisa Martinez Crystals LM Nom (Urine sed) NONE SEEN Normal NONE SEEN [facility] Comment on above: Performed By: #### K U #### [facility] [address] [place] [address] Dr. Lisa Martinez Epithelial cells LM Ql (Urine sed) FEW Abnormal NONE SEEN /RARE [facility] Comment on above: Performed By: #### K U #### [facility] [address] [place] [address] Dr. Lisa Martinez Glucose Ql (U) Negative Normal NEGATIVE [facility] Comment on above: Performed By: #### K U #### [facility] [address] [address] [address] Lisa Martinez Hemoglobin Ql (U) Negative Normal NEGATIVE [facility] Comment on above: Performed By: #### K U #### [facility] [address] [address] [address] Lisa Martinez HYALINE CAST FEW Normal [facility] Comment on above: Performed By: #### K U #### [facility] [address] [place] [address] Dr. Lisa Martinez Ketones Ql (U) Negative Normal NEGATIVE [facility] Comment on above: Performed By: #### K U #### [facility] [address] [place] [address] Dr. Lisa Martinez LEUKOCYTES Negative Normal NEGATIVE [facility] Comment on above: Performed By: #### K U #### [facility] [address] [place] [address] Dr. Lisa Martinez MUCOUS NONE SEEN Normal NONE SEEN [facility] Comment on above: Performed By: #### K U #### [facility] [address] [place] [address] Dr. Lisa Martinez Nitrite Ql (U) Negative Normal NEGATIVE [facility] Comment on above: Performed By: #### K U #### [facility] [address] [place] [address] Dr. Lisa Martinez pH (U) 5.5 [pH] Normal 5-9 [facility] Comment on above: Performed By: #### K U #### [facility] [address] [place] [address] Dr. Lisa Martinez RBC NONE SEEN Abnormal 0-2 [facility] Comment on above: Performed By: #### K U #### [facility] [address] [place] [address] Dr. Lisa Martinez SPEC GRAVITY 1.010 Normal 1.005-<=1.0 25 [facility] Comment on above: Performed By: #### K U #### [facility] [address] [place] [address] Dr. Lisa Martinez UA PROTEIN Negative Normal NEGATIVE/ TRACE [facility] Comment on above: Performed By: #### K U #### [facility] [address] [address] [address] Lisa Martinez Urobilinogen Qn (U) 0.2 {Mike'U}/dL Normal 0.2 - 1. 0 [facility] Comment on above: Performed By: #### K U #### [facility] [address] [address] [address] Lisa Martinez WBC NONE SEEN Normal NONE SEEN [facility] Comment on above: Performed By: #### K U #### [facility] [address] [address] [address] Lisa Martinez US KIDNEYS BLADDERon 023 [...] by: Gela ARANDA Date: 2022-11-13 16:01 Normal [facility] XR CHEST 1 Von 11-13-2022 [...] MEENA WOOTEN Date: 2022-11-13 12:20 Normal [facility] PROF CHEM 8 (BAS METB)on Anion gap [Moles/Vol] 13.5 mmol/L Normal [facility] Comment on above: Performed By: #### B MP ####[facility] [address] [address]Dr. Lisa Martinez Calcium [Mass/Vol] 9.2 mg/dL Normal 8.5-10.1 [facility] Comment on above: Performed By: #### B MP ####[facility] [id number] [place], [place] [address]Dr. Lisa Martinez Chloride [Moles/Vol] 108 mmol/L Critically high 98-107 [facility] Comment on above: Performed By: #### B MP ####[facility] [address] [place], [place] [address]Dr. Lisa Martinez CO2 [Moles/Vol] 25.6 mmol/L Normal 21.0-32.0 [facility] Comment on above: Performed By: #### B MP ####[facility] [address] [place], [place] [address]Dr. Lisa Martinez Creatinine [Mass/Vol] 1.53 mg/dL Critically high 0.55-1.02 [facility] Comment on above: Performed By: #### B MP ####[facility] [address] [address]Dr. Lisa Martinez EGFR-AF NICARAGUAN 39 mL/min/1.73m2 Critically low >=60 [facility] Comment on above: Performed By: #### B MP ####[facility] [id number] [place], [place] [address]Dr. Lisa Martinez EGFR-NON AF NICARAGUAN 32 mL/min/1.73m2 Critically low >=60 [facility] Comment on above: Performed By: #### B MP ####[facility] [address] [address]Dr. Lisa Martinez Glucose [Mass/Vol] 69 mg/dL Critically low 74-106 [facility] Comment on above: Performed By: #### B MP ####[facility] [address] [id number]. Lisa Martinez Potassium [Moles/Vol] 5.1 mmol/L Normal 3.5-5.1 [facility] Comment on above: Performed By: #### B MP ####[facility] [address] [address]Dr. Lisa Martinez Sodium [Moles/Vol] 142 mmol/L Normal 136-145 [facility] Comment on above: Performed By: #### B MP ####[facility] [address] [address]Dr. Lisa Martinez Urea nitrogen [Mass/Vol] 32.0 mg/dL Critically high 7.0-18.0 [facility] Comment on above: Performed By: #### B MP ####[facility] [address] [address]Dr. Lisa Martinez Urea nitrogen/Creatinine [Mass ratio] 20.9 mg/mg Normal [facility] Comment on above: Performed By: #### B MP ####[facility] [address] [address]DrIngrid Martinez BNPon 10-08-2022 Natriuretic peptide B (Bld) [Mass/Vol] 3489.0 pg/mL Critically high <=1,800.0 [facility] Comment on above: Performed By: #### B RETAIL SUPPORT SPECIALIST, BMP #### [facility] [address] [place] [address] Dr. Lisa Martinez CBC AUTO DIFFon 10-08-2022 BASO # 0.0 103/ul Normal 0.0-0.1 [facility] Comment on above: Performed By: #### B RETAIL SUPPORT SPECIALIST, BMP #### [facility] [address] [place] [address] Dr. Lisa Martinez Basophils/100 WBC (Bld) 0.6 % Normal 0.2-2.0 [facility] Comment on above: Performed By: #### B RETAIL SUPPORT SPECIALIST, BMP #### [facility] [address] [place] [address] Dr. Lisa Martinez EO # 0.2 103/ul Normal 0.0-0.7 [facility] Comment on above: Performed By: #### B RETAIL SUPPORT SPECIALIST, BMP #### [facility] [address] [place] [address] Dr. Lisa Martinez Eosinophils/100 WBC (Bld) 3.5 % Normal 0.9-7.0 [facility] Comment on above: Performed By: #### B RETAIL SUPPORT SPECIALIST, BMP #### [facility] [address] [place] [address] Dr. Lisa Martinez Erythrocyte distribution width (RBC) [Ratio] 15.5 % Critically high 11.0-15.0 [facility] Comment on above: Performed By: #### B RETAIL SUPPORT SPECIALIST, BMP #### [facility] [address] [place] [address] Dr. Lisa Martinez Hematocrit (Bld) [Volume fraction] 31.8 % Critically low 36.0-48.0 [facility] Comment on above: Performed By: #### B RETAIL SUPPORT SPECIALIST, BMP #### [facility] [address] [place] [address] Dr. Lisa Martinez Hemoglobin (Bld) [Mass/Vol] 9.8 g/dL Critically low 12.0-16.0 [facility] Comment on above: Performed By: #### B RETAIL SUPPORT SPECIALIST, BMP #### [facility] [address] [place] [address] Dr. Lisa Martinez IG # 0.02 10e3/ul Normal 0.00-0.03 [facility] Comment on above: Performed By: #### B RETAIL SUPPORT SPECIALIST, BMP #### [facility] [address] [place] [address] Dr. Lisa Martinez IG % 0.3 % Normal 0.0-0.5 [facility] Comment on above: Performed By: #### B RETAIL SUPPORT SPECIALIST, BMP #### [facility] [address] [place] [address] Dr. Lisa Martinez LYMPH # 0.9 103/ul Critically low 1.2-3.8 [facility] Comment on above: Performed By: #### B RETAIL SUPPORT SPECIALIST, BMP #### [facility] [address] [place] [address] Dr. Lisa Martinez Lymphocytes/100 WBC (Bld) 14.0 % Critically low 20.5-60.0 [facility] Comment on above: Performed By: #### B RETAIL SUPPORT SPECIALIST, BMP #### [facility] [address] [place] [address] Dr. Lisa Martinez MANUAL DIFF REQ NO Normal [facility] Comment on above: Performed By: #### B RETAIL SUPPORT SPECIALIST, BMP #### [facility] [address] [place] [address] Dr. Lisa Martinez MCH (RBC) [Entitic mass] 29.9 pg Normal 26.7-34.0 [facility] Comment on above: Performed By: #### B RETAIL SUPPORT SPECIALIST, BMP #### [facility] [address] [place] [address] Dr. Lisa Martinez MCHC (RBC) [Mass/Vol] 30.8 g/dL Normal 29.9-35.2 [facility] Comment on above: Performed By: #### B RETAIL SUPPORT SPECIALIST, BMP #### [facility] [address] [place] [address] Dr. Lisa Martinez MCV (RBC) [Entitic vol] 97.0 fL Normal 81.0-99.0 [facility] Comment on above: Performed By: #### B RETAIL SUPPORT SPECIALIST, BMP #### [facility] [address] [place] [address] Dr. Lisa Martinez MONO # 0.8 103/ul Normal 0.3-0.8 [facility] Comment on above: Performed By: #### B RETAIL SUPPORT SPECIALIST, BMP #### [facility] [address] [place] [address] Dr. Lisa Martinez Monocytes/100 WBC (Bld) 11.9 % Normal 1.7-12.0 [facility] Comment on above: Performed By: #### B RETAIL SUPPORT SPECIALIST, BMP #### [facility] [address] [address] [address] Lisa Martinez NEUT # 4.4 103/ul Normal 1.4-6.5 [facility] Comment on above: Performed By: #### B RETAIL SUPPORT SPECIALIST, BMP #### [facility] [address] [address] [address] Lisa Martinez Neutrophils/100 WBC (Bld) 69.7 % Normal 43.0-75.0 [facility] Comment on above: Performed By: #### B RETAIL SUPPORT SPECIALIST, BMP #### [facility] [address] [address] [address] Lisa Martinez Platelet mean volume (Bld) [Entitic vol] 10.3 fL Normal 9.5-13.5 [facility] Comment on above: Performed By: #### B RETAIL SUPPORT SPECIALIST, BMP #### [facility] [address] [place] [address] Dr. Lisa Martinez PLT 223 103/ul Normal 150-450 [facility] Comment on above: Performed By: #### B RETAIL SUPPORT SPECIALIST, BMP #### [facility] [address] [address] [address] Lisa Martinez RBC 3.28 106/ul Critically low 4.20-5.40 [facility] Comment on above: Performed By: #### B RETAIL SUPPORT SPECIALIST, BMP #### [facility] [address] [place] [address] Dr. Lisa Martinez WBC 6.3 103/ul Normal 4.0-11.0 [facility] Comment on above: Performed By: #### B RETAIL SUPPORT SPECIALIST, BMP #### [facility] [address] [place] [address] Dr. Lisa Martinez DIGOXINon 10-08-2022 DIG 1.6 ng/mL Normal 0.9-2.0 [facility] Comment on above: Performed By: #### D IG ####[facility] [address] [address]Dr. Lisa Martinez POINT OF CARE GLUCOSEon Glucose [Mass/Vol] 226 mg/dL Critically high 74-106 [facility] Comment on above: Performed By: #### P OCGLUC ####[facility] [address] [place], [place] [address]CrDr. Lisa Martinez Glucose [Mass/Vol] 107 mg/dL Critically high 74-106 [facility] Comment on above: Performed By: #### B LDCX2 #### [facility] [address] [address] [address] Lisa Martinez PROF CHEM 8 (BAS METB)on Anion gap [Moles/Vol] 11.7 mmol/L Normal [facility] Comment on above: Performed By: #### B RETAIL SUPPORT SPECIALIST, BMP #### [facility] [address] [address] [address] Lisa Martinez Calcium [Mass/Vol] 9.2 mg/dL Normal 8.5-10.1 [facility] Comment on above: Performed By: #### B RETAIL SUPPORT SPECIALIST, BMP #### [facility] [address] [address] [address] Lisa Martinez Chloride [Moles/Vol] 102 mmol/L Normal 98-107 [facility] Comment on above: Performed By: #### B RETAIL SUPPORT SPECIALIST, BMP #### [facility] [address] [address] [address] Lisa Martinez CO2 [Moles/Vol] 29.3 mmol/L Normal 21.0-32.0 [facility] Comment on above: Performed By: #### B RETAIL SUPPORT SPECIALIST, BMP #### [facility] [address] [address] [address] Lisa Martinze Creatinine [Mass/Vol] 1.27 mg/dL Critically high 0.55-1.02 [facility] Comment on above: Performed By: #### B RETAIL SUPPORT SPECIALIST, BMP #### [facility] [address] [address] [address] Lisa Martinez EGFR-AF NICARAGUAN 49 mL/min/1.73m2 Critically low >=60 [facility] Comment on above: Performed By: #### B RETAIL SUPPORT SPECIALIST, BMP #### [facility] [address] [address] [address] Lisa Martinez EGFR-NON AF NICARAGUAN 40 mL/min/1.73m2 Critically low >=60 [facility] Comment on above: Performed By: #### B RETAIL SUPPORT SPECIALIST, BMP #### [facility] [address] [place] [address] Dr. Lisa Martinez Glucose [Mass/Vol] 98 mg/dL Normal 74-106 [facility] Comment on above: Performed By: #### B RETAIL SUPPORT SPECIALIST, BMP #### [facility] [address] [place] [address] Dr. Lisa Martinez Potassium [Moles/Vol] 4.0 mmol/L Normal 3.5-5.1 [facility] Comment on above: Performed By: #### B RETAIL SUPPORT SPECIALIST, BMP #### [facility] [address] [place] [address] Dr. Lisa Martinez Sodium [Moles/Vol] 139 mmol/L Normal 136-145 [facility] Comment on above: Performed By: #### B RETAIL SUPPORT SPECIALIST, BMP #### [facility] [address] [place] [address] Dr. Lisa Martinez Urea nitrogen [Mass/Vol] 26.0 mg/dL Critically high 7.0-18.0 [facility] Comment on above: Performed By: #### B RETAIL SUPPORT SPECIALIST, BMP #### [facility] [address] [place] [address] Dr. Lisa Martinez Urea nitrogen/Creatinine [Mass ratio] 20.5 mg/mg Normal [facility] Comment on above: Performed By: #### B RETAIL SUPPORT SPECIALIST, BMP #### [facility] [address] [place] [address] Dr. Lisa Martinez BNPon 10-07-2022 Natriuretic peptide B (Bld) [Mass/Vol] 6039.0 pg/mL Critically high <=1,800.0 [facility] Comment on above: Performed By: #### B RETAIL SUPPORT SPECIALIST ####[facility] [address] [place], [place] [address]Dr. Lisa Martinez CBC AUTO DIFFon 10-07-2022 BASO # 0.1 103/ul Normal 0.0-0.1 [facility] Comment on above: Performed By: #### K U #### [facility] [address] [address] [address] Lisa Martinez Basophils/100 WBC (Bld) 0.7 % Normal 0.2-2.0 [facility] Comment on above: Performed By: #### K U #### [facility] [address] [address] [address] Lisa Martinez EO # 0.3 103/ul Normal 0.0-0.7 [facility] Comment on above: Performed By: #### K U #### [facility] [address] [place] [address] Dr. Lisa Martinez Eosinophils/100 WBC (Bld) 4.0 % Normal 0.9-7.0 [facility] Comment on above: Performed By: #### K U #### [facility] [address] [place] [address] Dr. Lisa Martinez Erythrocyte distribution width (RBC) [Ratio] 15.6 % Critically high 11.0-15.0 [facility] Comment on above: Performed By: #### K U #### [facility] [address] [place] [address] Dr. Lisa Martinez Hematocrit (Bld) [Volume fraction] 34.0 % Critically low 36.0-48.0 [facility] Comment on above: Performed By: #### K U #### [facility] [address] [place] [address] Dr. Lisa Martinez Hemoglobin (Bld) [Mass/Vol] 10.4 g/dL Critically low 12.0-16.0 [facility] Comment on above: Performed By: #### K U #### [facility] [address] [place] [address] Dr. Lisa Martinez IG # 0.02 10e3/ul Normal 0.00-0.03 [facility] Comment on above: Performed By: #### K U #### [facility] [address] [place] [address] Dr. Lisa Martinez IG % 0.3 % Normal 0.0-0.5 [facility] Comment on above: Performed By: #### K U #### [facility] [address] [address] [address] Lisa Martinez LYMPH # 1.0 103/ul Critically low 1.2-3.8 [facility] Comment on above: Performed By: #### K U #### [facility] [address] [place] [address] Dr. Lisa Martinez Lymphocytes/100 WBC (Bld) 14.9 % Critically low 20.5-60.0 [facility] Comment on above: Performed By: #### K U #### [facility] [address] [place] [address] Dr. Lisa Martinez MANUAL DIFF REQ NO Normal [facility] Comment on above: Performed By: #### K U #### [facility] [address] [place] [address] Dr. Lisa Martinez MCH (RBC) [Entitic mass] 29.8 pg Normal 26.7-34.0 [facility] Comment on above: Performed By: #### K U #### [facility] [address] [place] [address] Dr. Lisa Martinez MCHC (RBC) [Mass/Vol] 30.6 g/dL Normal 29.9-35.2 [facility] Comment on above: Performed By: #### K U #### [facility] [address] [place] [address] Dr. Lisa Martinez MCV (RBC) [Entitic vol] 97.4 fL Normal 81.0-99.0 [facility] Comment on above: Performed By: #### K U #### [facility] [address] [place] [address] Dr. Lisa Martinez MONO # 0.6 103/ul Normal 0.3-0.8 [facility] Comment on above: Performed By: #### K U #### [facility] [address] [place] [address] Dr. Lisa Martinez Monocytes/100 WBC (Bld) 8.8 % Normal 1.7-12.0 [facility] Comment on above: Performed By: #### K U #### [facility] [address] [place] [address] Dr. Lisa Martinez NEUT # 4.9 103/ul Normal 1.4-6.5 [facility] Comment on above: Performed By: #### K U #### [facility] [address] [address] [address] Lisa Martinez Neutrophils/100 WBC (Bld) 71.3 % Normal 43.0-75.0 [facility] Comment on above: Performed By: #### K U #### [facility] [address] [address] [address] Lisa Martinez Platelet mean volume (Bld) [Entitic vol] 10.5 fL Normal 9.5-13.5 [facility] Comment on above: Performed By: #### K U #### [facility] [address] [place] [address] Dr. Lisa Martinez PLT 251 103/ul Normal 150-450 [facility] Comment on above: Performed By: #### K U #### [facility] [address] [address] [address] Lisa Martinez RBC 3.49 106/ul Critically low 4.20-5.40 [facility] Comment on above: Performed By: #### K U #### [facility] [address] [place] [address] Dr. Lisa Martinez WBC 6.8 103/ul Normal 4.0-11.0 [facility] Comment on above: Performed By: #### K U #### [facility] [address] [place] [address] Dr. Lisa Martinez DIGOXINon 10-07-2022 DIG 1.7 ng/mL Normal 0.9-2.0 [facility] Comment on above: Performed By: #### U RCX #### [facility] [address] [place] [address] Dr. Lisa Martinez POINT OF CARE GLUCOSEon Glucose [Mass/Vol] 185 mg/dL Critically high 74-106 [facility] Comment on above: Performed By: #### B RETAIL SUPPORT SPECIALIST, BMP #### [facility] [address] [place] [address] Dr. Lisa Martinez Glucose [Mass/Vol] 120 mg/dL Critically high 74-106 [facility] Comment on above: Performed By: #### C VDTBH #### [facility] [address] [address] [address] Lisa Martinez Glucose [Mass/Vol] 218 mg/dL Critically high 74-106 [facility] Comment on above: Performed By: #### B LDCX2 #### [facility] [address] [address] [address] Lisa Martinez PROF CHEM 8 (BAS METB)on Anion gap [Moles/Vol] 12.3 mmol/L Normal [facility] Comment on above: Performed By: #### B RETAIL SUPPORT SPECIALIST, BMP #### [facility] [address] [place] [address] Dr. Lisa Martinez Calcium [Mass/Vol] 9.3 mg/dL Normal 8.5-10.1 [facility] Comment on above: Performed By: #### B RETAIL SUPPORT SPECIALIST, BMP #### [facility] [address] [place] [address] Dr. Lisa Martinez Chloride [Moles/Vol] 102 mmol/L Normal 98-107 [facility] Comment on above: Performed By: #### B RETAIL SUPPORT SPECIALIST, BMP #### [facility] [address] [place] [address] Dr. Lisa Martinez CO2 [Moles/Vol] 30.8 mmol/L Normal 21.0-32.0 [facility] Comment on above: Performed By: #### B RETAIL SUPPORT SPECIALIST, BMP #### [facility] [address] [place] [address] Dr. Lisa Martinez Creatinine [Mass/Vol] 1.45 mg/dL Critically high 0.55-1.02 [facility] Comment on above: Performed By: #### B RETAIL SUPPORT SPECIALIST, BMP #### [facility] [address] [place] [address] Dr. Lisa Martinez EGFR-AF NICARAGUAN 42 mL/min/1.73m2 Critically low >=60 [facility] Comment on above: Performed By: #### B RETAIL SUPPORT SPECIALIST, BMP #### [facility] [address] [address] [address] Lisa Martinez EGFR-NON AF NICARAGUAN 34 mL/min/1.73m2 Critically low >=60 [facility] Comment on above: Performed By: #### B RETAIL SUPPORT SPECIALIST, BMP #### [facility] [address] [address] [address] Lisa Martinez Glucose [Mass/Vol] 103 mg/dL Normal 74-106 [facility] Comment on above: Performed By: #### B RETAIL SUPPORT SPECIALIST, BMP #### [facility] [address] [address] [address] Lisa Martinez Potassium [Moles/Vol] 4.1 mmol/L Normal 3.5-5.1 [facility] Comment on above: Performed By: #### B RETAIL SUPPORT SPECIALIST, BMP #### [facility] [address] [address] [address] Lisa Martinez Sodium [Moles/Vol] 141 mmol/L Normal 136-145 [facility] Comment on above: Performed By: #### B RETAIL SUPPORT SPECIALIST, BMP #### [facility] [address] [address] [address] Lisa Martinez Urea nitrogen [Mass/Vol] 26.0 mg/dL Critically high 7.0-18.0 [facility] Comment on above: Performed By: #### B RETAIL SUPPORT SPECIALIST, BMP #### [facility] [address] [address] [address] Lisa Martinez Urea nitrogen/Creatinine [Mass ratio] 17.9 mg/mg Normal [facility] Comment on above: Performed By: #### B RETAIL SUPPORT SPECIALIST, BMP #### [facility] [address] [address] [address] Lisa Martinez BNPon 10-06-2022 Natriuretic peptide B (Bld) [Mass/Vol] 6211.0 pg/mL Critically high <=1,800.0 [facility] Comment on above: Performed By: #### C MADM, LIVER, CMP, BNP ####[facility] [address] [address]Dr. Lisa Martinez CARDIAC DONY ADMITon 023 CK [Catalytic activity/Vol] 50 U/L Normal 26-192 [facility] Comment on above: Performed By: #### C MADM, LIVER, CMP, BNP ####[facility] [address] [address]Dr. Lisa Martinez CK.MB [Mass/Vol] 0.89 ng/mL Normal <=3.60 [facility] Comment on above: Performed By: #### C MADM, LIVER, CMP, BNP ####[facility] [address] [address]Dr. Lisa Martinez HSTROP 19.1 pg/mL Normal 4.0-51.3 [facility] Comment on above: Result Comment: CUT- OFF POINTS HAVE BEEN ESTABLISHED BASED ON THE FOURTH UNIVERSAL DEFINITIONS OF MYOCARDIAL INFARCTION. THE UPPER REFERENCE LIMIT (URL) OF TROPONIN, DEFINED THE 99TH PERCENTILE OF cTnI DISTRIBUTION IN A REFERENCE POPULATION, HAS BEEN CONFIRMED THE DECISION THRESHOLD FOR [place] DIAGNOSIS. Performed By: #### C MADM, LIVER, CMP, BNP ####[facility] [address] [address]Dr. Lisa Martinez LISSY 56 ng/mL Normal 9-82 [facility] Comment on above: Performed By: #### C MADM, LIVER, CMP, BNP ####[facility] [address] [address]DrIngrid Martinez CBC AUTO DIFFon 10-06-2022 BASO # 0.1 103/ul Normal 0.0-0.1 [facility] Comment on above: Performed By: #### C BC #### [facility] [address] [place] [address] Dr. Lisa Martinez Basophils/100 WBC (Bld) 0.7 % Normal 0.2-2.0 [facility] Comment on above: Performed By: #### C BC #### [facility] [address] [address] [address] Lisa Martinez EO # 0.2 103/ul Normal 0.0-0.7 [facility] Comment on above: Performed By: #### C BC #### [facility] [address] [place] [address] Dr. Lisa Martinez Eosinophils/100 WBC (Bld) 2.0 % Normal 0.9-7.0 [facility] Comment on above: Performed By: #### C BC #### [facility] [address] [place] [address] Dr. Lisa Martinez Erythrocyte distribution width (RBC) [Ratio] 15.7 % Critically high 11.0-15.0 [facility] Comment on above: Performed By: #### C BC #### [facility] [address] [place] [address] Dr. Lisa Martinez Hematocrit (Bld) [Volume fraction] 32.4 % Critically low 36.0-48.0 [facility] Comment on above: Performed By: #### C BC #### [facility] [address] [place] [address] Dr. Lisa Martinez Hemoglobin (Bld) [Mass/Vol] 10.0 g/dL Critically low 12.0-16.0 [facility] Comment on above: Performed By: #### C BC #### [facility] [address] [place] [address] Dr. Lisa Martinez IG # 0.02 10e3/ul Normal 0.00-0.03 [facility] Comment on above: Performed By: #### C BC #### [facility] [address] [place] [address] Dr. Lisa Martinez IG % 0.3 % Normal 0.0-0.5 [facility] Comment on above: Performed By: #### C BC #### [facility] [address] [place] [address] Dr. Lisa Martinez LYMPH # 0.7 103/ul Critically low 1.2-3.8 [facility] Comment on above: Performed By: #### C BC #### [facility] [address] [place] [address] Dr. Lisa Martinez Lymphocytes/100 WBC (Bld) 9.2 % Critically low 20.5-60.0 [facility] Comment on above: Performed By: #### C BC #### [facility] [address] [place] [address] Dr. Lisa Martinez MANUAL DIFF REQ NO Normal [facility] Comment on above: Performed By: #### C BC #### [facility] [address] [place] [address] Dr. Lisa Martinez MCH (RBC) [Entitic mass] 29.8 pg Normal 26.7-34.0 [facility] Comment on above: Performed By: #### C BC #### [facility] [address] [place] [address] Dr. Lisa Martinez MCHC (RBC) [Mass/Vol] 30.9 g/dL Normal 29.9-35.2 [facility] Comment on above: Performed By: #### C BC #### [facility] [address] [place] [address] Dr. Lisa Martinez MCV (RBC) [Entitic vol] 96.4 fL Normal 81.0-99.0 [facility] Comment on above: Performed By: #### C BC #### [facility] [address] [place] [address] Dr. Lisa Martinez MONO # 0.5 103/ul Normal 0.3-0.8 [facility] Comment on above: Performed By: #### C BC #### [facility] [address] [place] [address] Dr. Lisa Martinez Monocytes/100 WBC (Bld) 6.4 % Normal 1.7-12.0 [facility] Comment on above: Performed By: #### C BC #### [facility] [address] [place] [address] Dr. Lisa Martinez NEUT # 6.2 103/ul Normal 1.4-6.5 [facility] Comment on above: Performed By: #### C BC #### [facility] [address] [place] [address] Dr. Lisa Martinez Neutrophils/100 WBC (Bld) 81.4 % Critically high 43.0-75.0 [facility] Comment on above: Performed By: #### C BC #### [facility] [address] [place] [address] Dr. Lisa Martinez Platelet mean volume (Bld) [Entitic vol] 10.2 fL Normal 9.5-13.5 [facility] Comment on above: Performed By: #### C BC #### [facility] [address] [address] [address] Lisa Martinez PLT 228 103/ul Normal 150-450 [facility] Comment on above: Performed By: #### C BC #### [facility] [address] [address] [address] Lisa Martinez RBC 3.36 106/ul Critically low 4.20-5.[address] [facility] Comment on above: Performed By: #### C BC #### [facility] [address] [address] [address] Lisa Martinez WBC 7.6 103/ul Normal 4.0-11.0 [facility] Comment on above: Performed By: #### C BC #### [facility] [address] [place] [address] Dr. Lisa Martinez CTA CHEST WO W CONon 023 CTA CHEST WO W CON EXAMINATION: [...] JENNY MARQUEZ Date: 2022-10-06 14:18 Normal [facility] SARS-CoV-2 (COVID-19) RNA RACIEL+probe Ql (Unsp spec) Not detected Normal NOT DETECTED [facility] Comment on above: Result Comment: When [...] for this test is supported by the Technical Service Specialist of Health and Human Service's declaration that [...] be used). Performed By: #### C VDTB ####[facility] [address] [place], [place] [address]EyIngrid KINGon 10-06-2022 DIG 2.3 ng/mL Critically high 0.9-2.[address] [facility] Comment on above: Performed By: #### C BC #### [facility] [address] [address] [address] Lisa Martinez LIVER PROFILEon 10-06-2022 BILI, CONJUGATED 0.4 mg/dL Critically high 0.0-0.2 [facility] Comment on above: Performed By: #### C MADM, LIVER, CMP, BNP ####[facility] [address] [address]DrIngrid Martinez POINT OF CARE GLUCOSEon 09-08 Glucose [Mass/Vol] 154 mg/dL Critically high 74-106 [facility] Comment on above: Performed By: #### B RETAIL SUPPORT SPECIALIST, BMP #### [facility] [address] [address] [address] Lisa Martinez Glucose [Mass/Vol] 77 mg/dL Normal 74-106 [facility] Comment on above: Performed By: #### B RETAIL SUPPORT SPECIALIST, BMP #### [facility] [address] [address] [address] Lisa Martinez PROF 14(COMP METB)on 023 Albumin [Mass/Vol] 3.5 g/dL Normal 3.4-5.0 [facility] Comment on above: Performed By: #### C MADM, LIVER, CMP, BNP ####[facility] [address] [address]DrIngrid Martinez Albumin/Globulin [Mass ratio] 0.8 {ratio} Normal [facility] Comment on above: Performed By: #### C MADM, LIVER, CMP, BNP ####[facility] [address] [address]DrIngrid Martinez ALP [Catalytic activity/Vol] 94 U/L Normal 46-116 [facility] Comment on above: Performed By: #### C MADM, LIVER, CMP, BNP ####[facility] [address] [address]DrIngrid Martinez ALT [Catalytic activity/Vol] 13 U/L Critically low 14-59 [facility] Comment on above: Performed By: #### C MADM, LIVER, CMP, BNP ####[facility] [address] [address]Dr. Lisa Martinez Anion gap [Moles/Vol] 11.1 mmol/L Normal [facility] Comment on above: Performed By: #### C MADM, LIVER, CMP, BNP ####[facility] [address] [address]Dr. Lisa Martinez AST [Catalytic activity/Vol] 15 U/L Normal 15-37 [facility] Comment on above: Performed By: #### C MADM, LIVER, CMP, BNP ####[facility] [address] [address]Dr. Lisa Martinez Bilirubin [Mass/Vol] 1.6 mg/dL Critically high 0.2-1.0 [facility] Comment on above: Performed By: #### C MADM, LIVER, CMP, BNP ####[facility] [address] [address]Dr. Lisa Martinez Calcium [Mass/Vol] 9.2 mg/dL Normal 8.5-10.1 [facility] Comment on above: Performed By: #### C MADM, LIVER, CMP, BNP ####[facility] [address] [address]Dr. Lisa Martinez Chloride [Moles/Vol] 106 mmol/L Normal 98-107 [facility] Comment on above: Performed By: #### C MADM, LIVER, CMP, BNP ####[facility] [address] [address]Dr. Lisa Martinez CO2 [Moles/Vol] 29.0 mmol/L Normal 21.0-32.0 [facility] Comment on above: Performed By: #### C MADM, LIVER, CMP, BNP ####[facility] [address] [address]Dr. Lisa Martinez Creatinine [Mass/Vol] 1.43 mg/dL Critically high 0.55-1.02 [facility] Comment on above: Performed By: #### C MADM, LIVER, CMP, BNP ####[facility] [address] [address]Dr. Lisa Juan EGFR-AF NICARAGUAN 42 mL/min/1.73m2 Critically low >=60 [facility] Comment on above: Performed By: #### C MADM, LIVER, CMP, BNP ####[facility] [address] [address]Dr. iLsa Martinez EGFR-NON AF NICARAGUAN 35 mL/min/1.73m2 Critically low >=60 [facility] Comment on above: Performed By: #### C MADM, LIVER, CMP, BNP ####[facility] [address] [address]Dr. Lisa Martinez Globulin (S) [Mass/Vol] 4.2 g/dL Normal [facility] Comment on above: Performed By: #### C MADM, LIVER, CMP, BNP ####[facility] [address] [address]Dr. Lisa Martinez Glucose [Mass/Vol] 114 mg/dL Critically high 74-106 [facility] Comment on above: Performed By: #### C MADM, LIVER, CMP, BNP ####[facility] [address] [place], [place] [address]Dr. Lisa Martinez Potassium [Moles/Vol] 4.1 mmol/L Normal 3.5-5.1 [facility] Comment on above: Performed By: #### C MADM, LIVER, CMP, BNP ####[facility] [address] [address]Dr. Lisa Martinez Protein [Mass/Vol] 7.7 g/dL Normal 6.4-8.2 [facility] Comment on above: Performed By: #### C MADM, LIVER, CMP, BNP ####[facility] [address] [address]Dr. Lisa Martinez Sodium [Moles/Vol] 142 mmol/L Normal 136-145 [facility] Comment on above: Performed By: #### C MADM, LIVER, CMP, BNP ####[facility] [address] [address]Dr. Lisa Martinez Urea nitrogen [Mass/Vol] 26.0 mg/dL Critically high 7.0-18.0 [facility] Comment on above: Performed By: #### C MADM, LIVER, CMP, BNP ####[facility] [address] [address]Dr. Lisa Martinez Urea nitrogen/Creatinine [Mass ratio] 18.2 mg/mg Normal [facility] Comment on above: Performed By: #### C MADM, LIVER, CMP, BNP ####[facility] [address] [id number]. Lisa Martinez PROTIMEon 10-06-2022 INR Coag (PPP) [Relative time] 1.09 {INR} Normal [facility] Comment on above: Performed By: #### B RETAIL SUPPORT SPECIALIST, BMP #### [facility] [address] [address] [address] Lisa Martinez INR GUIDELINES SEE BELOW Normal [facility] Comment on above: Result Comment: ANTONY RED INR: 2.0 - 3.0 CONDITIONS NOT LISTED BELOW 2.5 - 3.5 FOR PROSTHETIC HEART VALVE REPLACEMENT 2.5 - 3.5 RECURRENT THROMBOSIS Performed By: #### B RETAIL SUPPORT SPECIALIST, BMP #### [facility] [address] [address] [address] Lisa Martinez PT Coag (PPP) [Time] 11.5 s Normal 9.0-11.6 [facility] Comment on above: Performed By: #### B RETAIL SUPPORT SPECIALIST, BMP #### [facility] [address] [address] [address] Lisa Martinez PTTon 10-06-2022 aPTT Coag (Bld) [Time] 26.5 s Normal 22.3-36.2 [facility] Comment on above: Performed By: #### B RETAIL SUPPORT SPECIALIST, BMP #### [facility] [address] [address] [address] Lisa Martinez ECHOCARDIO M/2D COMPLETEon 1 08-27-2021 ECHOCARDIO M/2D COMPLETE Patient: JENNI QUINONES Exam Date: 06/26/2022 : 1940 Gender:F Ordering : FARZANEH ARNDT Admission #: [id number] Family : Order #: [id number] CLICK HERE TO VIEW EXAM ECHOCARDIOGRAM REPORT [...] 0.81 cm2, 0.87 cm2, 0.77 cm2 Deceleration [place]: 0.72 m/s2 Pressure Half-Time: 1.18 s Peak [...] Nova M.D. on 06/29/2022 at 15:34 Normal [facility] CBC AUTO DIFFon 05-02-2022 BASO # 0.0 103/ul Normal 0.0-0.1 [facility] Comment on above: Performed By: #### C #### [facility] [address] [address] [address] Lisa Martinez Basophils/100 WBC (Bld) 0.4 % Normal 0.2-2.0 [facility] Comment on above: Performed By: #### C BC #### [facility] [address] [address] [address] Lisa Martinez EO # 0.1 103/ul Normal 0.0-0.7 [facility] Comment on above: Performed By: #### C BC #### [facility] [address] [address] [address] Lisa Martinez Eosinophils/100 WBC (Bld) 1.8 % Normal 0.9-7.0 [facility] Comment on above: Performed By: #### C BC #### [facility] [address] [place] [address] Dr. Lisa Martinez Erythrocyte distribution width (RBC) [Ratio] 13.3 % Normal 11.0-15.0 [facility] Comment on above: Performed By: #### C BC #### [facility] [address] [place] [address] Dr. Lisa Martinez Hematocrit (Bld) [Volume fraction] 38.4 % Normal 36.0-48.0 [facility] Comment on above: Performed By: #### C BC #### [facility] [address] [place] [address] Dr. Lisa Martinez Hemoglobin (Bld) [Mass/Vol] 12.0 g/dL Normal 12.0-16.0 [facility] Comment on above: Performed By: #### C BC #### [facility] [address] [place] [address] Dr. Lisa Martinez IG # 0.09 10e3/ul Critically high 0.00-0.03 [facility] Comment on above: Performed By: #### C BC #### [facility] [address] [address] [address] Lisa Martinez IG % 1.6 % Critically high 0.0-0.[address] [facility] Comment on above: Performed By: #### C BC #### [facility] [address] [address] [address] Lisa Martinez LYMPH # 0.9 103/ul Critically low 1.2-3.8 [facility] Comment on above: Performed By: #### C BC #### [facility] [address] [address] [address] Lisa Martinez Lymphocytes/100 WBC (Bld) 16.0 % Critically low 20.5-60.0 [facility] Comment on above: Performed By: #### C BC #### [facility] [address] [place] [address] Dr. Lisa Martinez MANUAL DIFF REQ NO Normal [facility] Comment on above: Performed By: #### C BC #### [facility] [address] [place] [address] Dr. Lisa Martinez MCH (RBC) [Entitic mass] 30.2 pg Normal 26.7-34.0 [facility] Comment on above: Performed By: #### C BC #### [facility] [address] [place] [address] Dr. Lisa Martinez MCHC (RBC) [Mass/Vol] 31.3 g/dL Normal 29.9-35.2 [facility] Comment on above: Performed By: #### C BC #### [facility] [address] [place] [address] Dr. Lisa Martinez MCV (RBC) [Entitic vol] 96.7 fL Normal 81.0-99.0 [facility] Comment on above: Performed By: #### C BC #### [facility] [address] [place] [address] Dr. Lisa Martinez MONO # 0.6 103/ul Normal 0.3-0.8 [facility] Comment on above: Performed By: #### C BC #### [facility] [address] [place] [address] Dr. Lisa Martinez Monocytes/100 WBC (Bld) 11.3 % Normal 1.7-12.0 [facility] Comment on above: Performed By: #### C BC #### [facility] [address] [address] [address] Lisa Martinez NEUT # 3.9 103/ul Normal 1.4-6.5 [facility] Comment on above: Performed By: #### C BC #### [facility] [address] [address] [address] Lisa Martinez Neutrophils/100 WBC (Bld) 68.9 % Normal 43.0-75.0 [facility] Comment on above: Performed By: #### C BC #### [facility] [address] [place] [address] Dr. Lisa Martinez Platelet mean volume (Bld) [Entitic vol] 10.7 fL Normal 9.5-13.5 [facility] Comment on above: Performed By: #### C BC #### [facility] [address] [place] [address] Dr. Lisa Martinez PLT 164 103/ul Normal 150-450 [facility] Comment on above: Performed By: #### C BC #### [facility] [address] [place] [address] Dr. Lisa Martinez RBC 3.97 106/ul Critically low 4.20-5.40 [facility] Comment on above: Performed By: #### C BC #### [facility] [address] [place] [address] Dr. Lisa Martinez WBC 5.6 103/ul Normal 4.0-11.0 [facility] Comment on above: Performed By: #### C BC #### [facility] [address] [place] [address] Dr. Lisa Martinze PROF 14(COMP METB)on 022 Albumin [Mass/Vol] 2.8 g/dL Critically low 3.4-5.0 [facility] Comment on above: Performed By: #### U RCX #### [facility] [address] [place] [address] Dr. Lisa Martinez Albumin/Globulin [Mass ratio] 0.7 {ratio} Normal [facility] Comment on above: Performed By: #### U RCX #### [facility] [address] [address] [address] Lisa Martinez ALP [Catalytic activity/Vol] 74 U/L Normal 46-116 [facility] Comment on above: Performed By: #### U RCX #### [facility] [address] [address] [address] Lisa Martinez ALT [Catalytic activity/Vol] 11 U/L Critically low 14-59 [facility] Comment on above: Performed By: #### U RCX #### [facility] [address] [address] [address] Lisa Martinez Anion gap [Moles/Vol] 13.5 mmol/L Normal [facility] Comment on above: Performed By: #### U RCX #### [facility] [address] [place] [address] Dr. Lisa Martinez AST [Catalytic activity/Vol] 14 U/L Critically low 15-37 [facility] Comment on above: Performed By: #### U RCX #### [facility] [address] [place] [address] Dr. Lisa Martinez Bilirubin [Mass/Vol] 0.5 mg/dL Normal 0.2-1.0 [facility] Comment on above: Performed By: #### U RCX #### [facility] [address] [place] [address] Dr. Lisa Martinez Calcium [Mass/Vol] 8.5 mg/dL Normal 8.5-10.1 [facility] Comment on above: Performed By: #### U RCX #### [facility] [address] [place] [address] Dr. Lisa Martinez Chloride [Moles/Vol] 103 mmol/L Normal 98-107 [facility] Comment on above: Performed By: #### U RCX #### [facility] [address] [place] [address] Dr. Lsia Martinez CO2 [Moles/Vol] 24.5 mmol/L Normal 21.0-32.0 [facility] Comment on above: Performed By: #### U RCX #### [facility] [address] [place] [address] Dr. Lisa Martinez Creatinine [Mass/Vol] 1.43 mg/dL Critically high 0.55-1.02 [facility] Comment on above: Performed By: #### U RCX #### [facility] [address] [address] [address] Lisa Martinez EGFR-AF NICARAGUAN 42 mL/min/1.73m2 Critically low >=60 [facility] Comment on above: Performed By: #### U RCX #### [facility] [address] [address] [address] Lisa Martinez EGFR-NON AF NICARAGUAN 35 mL/min/1.73m2 Critically low >=60 [facility] Comment on above: Performed By: #### U RCX #### [facility] [address] [place] [address] Dr. Lisa Martinez Globulin (S) [Mass/Vol] 4.3 g/dL Normal [facility] Comment on above: Performed By: #### U RCX #### [facility] [address] [address] [address] Lisa Martinez Glucose [Mass/Vol] 142 mg/dL Critically high 74-106 [facility] Comment on above: Performed By: #### U RCX #### [facility] [address] [place] [address] Dr. Lisa Martinez Potassium [Moles/Vol] 4.0 mmol/L Normal 3.5-5.1 [facility] Comment on above: Performed By: #### U RCX #### [facility] [address] [address] [address] Lisa Martinez Protein [Mass/Vol] 7.1 g/dL Normal 6.4-8.2 [facility] Comment on above: Performed By: #### U RCX #### [facility] [address] [address] [address] Lisa Martinez Sodium [Moles/Vol] 137 mmol/L Normal 136-145 [facility] Comment on above: Performed By: #### U RCX #### [facility] [address] [address] [address] Lisa Martinez Urea nitrogen [Mass/Vol] 31.0 mg/dL Critically high 7.0-18.0 [facility] Comment on above: Performed By: #### U RCX #### [facility] [address] [place] [address] Dr. Lisa Martinez Urea nitrogen/Creatinine [Mass ratio] 21.7 mg/mg Normal [facility] Comment on above: Performed By: #### U RCX #### [facility] [address] [place] [address] Dr. Lisa Martinez CBC AUTO DIFFon 05-01-2022 BASO # 0.0 103/ul Normal 0.0-0.1 [facility] Comment on above: Performed By: #### U RCX #### [facility] [address] [place] [address] Dr. Lisa Martinez Basophils/100 WBC (Bld) 0.3 % Normal 0.2-2.0 [facility] Comment on above: Performed By: #### U RCX #### [facility] [address] [place] [address] Dr. Lisa Martinez EO # 0.1 103/ul Normal 0.0-0.7 [facility] Comment on above: Performed By: #### U RCX #### [facility] [address] [place] [address] Dr. Lisa Martinez Eosinophils/100 WBC (Bld) 0.9 % Normal 0.9-7.0 [facility] Comment on above: Performed By: #### U RCX #### [facility] [address] [place] [address] Dr. Lisa Martinez Erythrocyte distribution width (RBC) [Ratio] 13.4 % Normal 11.0-15.0 [facility] Comment on above: Performed By: #### U RCX #### [facility] [address] [place] [address] Dr. Lisa Martinez Hematocrit (Bld) [Volume fraction] 41.6 % Normal 36.0-48.0 [facility] Comment on above: Performed By: #### U RCX #### [facility] [address] [address] [address] Lisa Martinez Hemoglobin (Bld) [Mass/Vol] 12.8 g/dL Normal 12.0-16.0 [facility] Comment on above: Performed By: #### U RCX #### [facility] [address] [address] [address] Lisa Martinez IG # 0.16 10e3/ul Critically high 0.00-0.03 [facility] Comment on above: Performed By: #### U RCX #### [facility] [address] [address] [address] Lisa Martinez IG % 1.6 % Critically high 0.0-0.[address] [facility] Comment on above: Performed By: #### U RCX #### [facility] [address] [place] [address] Dr. Lisa Martinez LYMPH # 0.8 103/ul Critically low 1.2-3.8 The [facility] Comment on above: Performed By: #### U RCX #### [facility] [address] [place] [address] Dr. Lisa Martinez Lymphocytes/100 WBC (Bld) 7.8 % Critically low 20.5-60.0 [facility] Comment on above: Performed By: #### U RCX #### [facility] [address] [place] [address] Dr. Lisa Martinez MANUAL DIFF REQ NO Normal [facility] Comment on above: Performed By: #### U RCX #### [facility] [address] [address] [address] Lisa Martinez MCH (RBC) [Entitic mass] 29.8 pg Normal 26.7-34.0 [facility] Comment on above: Performed By: #### U RCX #### [facility] [address] [address] [address] Lisa Martinez MCHC (RBC) [Mass/Vol] 30.8 g/dL Normal 29.9-35.2 [facility] Comment on above: Performed By: #### U RCX #### [facility] [address] [address] [address] Lisa Martinez MCV (RBC) [Entitic vol] 96.7 fL Normal 81.0-99.0 [facility] Comment on above: Performed By: #### U RCX #### [facility] [address] [place] [address] Dr. Lisa Martinez MONO # 0.8 103/ul Normal 0.3-0.8 [facility] Comment on above: Performed By: #### U RCX #### [facility] [address] [place] [address] Dr. Lisa Martinez Monocytes/100 WBC (Bld) 8.4 % Normal 1.7-12.0 [facility] Comment on above: Performed By: #### U RCX #### [facility] [address] [place] [address] Dr. Lisa Martinez NEUT # 7.9 103/ul Critically high 1.4-6.[address] [facility] Comment on above: Performed By: #### U RCX #### [facility] [address] [place] [address] Dr. Lisa Martinez Neutrophils/100 WBC (Bld) 81.0 % Critically high 43.0-75.0 [facility] Comment on above: Performed By: #### U RCX #### [facility] [address] [place] [address] Dr. Lisa Martinez Platelet mean volume (Bld) [Entitic vol] 10.6 fL Normal 9.5-13.5 [facility] Comment on above: Performed By: #### U RCX #### [facility] [address] [place] [address] Dr. Lisa Martinez PLT 211 103/ul Normal 150-450 [facility] Comment on above: Performed By: #### U RCX #### [facility] [address] [place] [address] Dr. Lisa Martinez RBC 4.30 106/ul Normal 4.20-5.40 [facility] Comment on above: Performed By: #### U RCX #### [facility] [address] [place] [address] Dr. Lisa Martinez WBC 9.8 103/ul Normal 4.0-11.0 [facility] Comment on above: Performed By: #### U RCX #### [facility] [address] [place] [address] Dr. Lisa Martinez DIGOXINon 05-01-2022 DIG 0.7 ng/mL Critically low 0.9-2.0 [facility] Comment on above: Performed By: #### B RETAIL SUPPORT SPECIALIST, BMP #### [facility] [address] [place] [address] Dr. Lisa Martinez GI PANEL (PCR)on 05-01-2022 Adenovirus F 40/41 Not detected Normal NOT DETECTED [facility] Comment on above: Performed By: #### B LDCX2 #### [facility] [address] [place] [address] Dr. Lisa Mratinez Astrovirus Not detected Normal NOT DETECTED [facility] Comment on above: Performed By: #### B LDCX2 #### [facility] [address] [place] [address] Dr. Lisa Martinez C. Diff toxin A/B Not detected Normal NOT DETECTED [facility] Comment on above: Performed By: #### B LDCX2 #### [facility] [address] [place] [address] Dr. Lisa Martinez Campylobacter Not detected Normal NOT DETECTED [facility] Comment on above: Performed By: #### B LDCX2 #### [facility] [address] [place] [address] Dr. Lisa Martinez Cryptosporidium Not detected Normal NOT DETECTED [facility] Comment on above: Performed By: #### B LDCX2 #### [facility] [address] [place] [address] Dr. Lisa Martinez Cyclos. Cayetanensis Not detected Normal NOT DETECTED [facility] Comment on above: Performed By: #### B LDCX2 #### [facility] [address] [place] [address] Dr. Lisa Martinez E. Coli O157 Not Applicable Normal Not Applicable [facility] Comment on above: Performed By: #### B LDCX2 #### [facility] [address] [place] [address] Dr. Lisa Martinez E. histolytica Not detected Normal NOT DETECTED [facility] Comment on above: Performed By: #### B LDCX2 #### [facility] [address] [place] [address] Dr. Lisa Martinez EAEC Not detected Normal NOT DETECTED [facility] Comment on above: Performed By: #### B LDCX2 #### [facility] [address] [place] [address] Dr. Lisa Martinez EIEC Not detected Normal NOT DETECTED [facility] Comment on above: Performed By: #### B LDCX2 #### [facility] [address] [place] [address] Dr. Lisa Martinez EPEC Not detected Normal NOT DETECTED [facility] Comment on above: Performed By: #### B LDCX2 #### [facility] [address] [place] [address] Dr. Lisa Martinez ETEC Not detected Normal NOT DETECTED [facility] Comment on above: Performed By: #### B LDCX2 #### [facility] [address] [place] [address] Dr. Lisa Martinez G. Lamblia Not detected Normal NOT DETECTED [facility] Comment on above: Performed By: #### B LDCX2 #### [facility] [address] [place] [address] Dr. Lisa MALDONADO CONTROLS PASSED Normal [facility] Comment on above: Performed By: #### B LDCX2 #### [facility] [address] [place] [address] Dr. Lisa LEWIS CHRIS HEADER GI PANEL BACTERIA Normal [facility] Comment on above: Performed By: #### B LDCX2 #### [facility] [address] [place] [address] Dr. Lisa LEWISHD ECOLI GI PANEL DIARRHEAGEN IC E.COLI / SHIGELLA Normal [facility] Comment on above: Performed By: #### B LDCX2 #### [facility] [address] [place] [address] Dr. Lisa HIRSCH INFO SEE BELOW Normal [facility] Comment on above: Result Comment: EAEC - Enteroaggregative E. Coli EPEC- Enteropathogenic E. Coli ETEC- Enterotoxigenic E. Coli lt/st STEC- Shigella-like toxin-producing E. Coli stx1/stx2 EIEC- Shigella/Enteroinvasive E. Coli Performed By: #### B LDCX2 #### [facility] [address] [place] [address] Dr. Lisa HIRSCH PARASITES GI PANEL PARASITES Normal [facility] Comment on above: Performed By: #### B LDCX2 #### [facility] [address] [place] [address] Dr. Lisa HIRSCH VIRUS GI PANEL VIRUSES Normal [facility] Comment on above: Performed By: #### B LDCX2 #### [facility] [address] [place] [address] Dr. Lisa Martinez Norovirus GI/GII Not detected Normal NOT DETECTED [facility] Comment on above: Performed By: #### B LDCX2 #### [facility] [address] [place] [address] Dr. Lisa Martinez P. Shigelloides Not detected Normal NOT DETECTED [facility] Comment on above: Performed By: #### B LDCX2 #### [facility] [address] [place] [address] Dr. Lisa Martinez Rotavirus A Not detected Normal NOT DETECTED [facility] Comment on above: Performed By: #### B LDCX2 #### [facility] [address] [place] [address] Dr. Lisa Martinez Salmonella Not detected Normal NOT DETECTED [facility] Comment on above: Performed By: #### B LDCX2 #### [facility] [address] [place] [address] Dr. Lisa Martinez Sapovirus Not detected Normal NOT DETECTED [facility] Comment on above: Performed By: #### B LDCX2 #### [facility] [address] [place] [address] Dr. Yilan Martinez STEC Not detected Normal NOT DETECTED [facility] Comment on above: Performed By: #### B LDCX2 #### [facility] [address] [place] [address] Dr. Lisa Martinez Vibrio Not detected Normal NOT DETECTED [facility] Comment on above: Performed By: #### B LDCX2 #### [facility] [address] [address] [address] Lisa Martinez Vibrio Cholera Not detected Normal NOT DETECTED [facility] Comment on above: Performed By: #### B LDCX2 #### [facility] [address] [place] [address] Dr. Lisa Martinez Y. Enterocolitica Not detected Normal NOT DETECTED [facility] Comment on above: Performed By: #### B LDCX2 #### [facility] [address] [place] [address] Dr. Lisa Martinez MAGNESIUMon 05-01-2022 Magnesium [Mass/Vol] 2.0 mg/dL Normal 1.8-2.4 [facility] Comment on above: Performed By: #### M G ####[facility] [address] [place], [place] [address]Dr. Lisa Martinez POINT OF CARE GLUCOSEon 04-09 Glucose [Mass/Vol] 184 mg/dL Critically high [address] [place] [address] Comment on above: Performed By: #### U RCX #### [facility] [address] [place] [address] Dr. Lisa Martinez Glucose [Mass/Vol] 137 mg/dL Critically high [address] [place] [address] Comment on above: Result Comment: Foll ow Protocol Performed By: #### C BC #### [facility] [address] [place] [address] Dr. Lisa Martinez Glucose [Mass/Vol] 170 mg/dL Critically high [address] [place] [address] Comment on above: Result Comment: Foll ow Protocol Performed By: #### P OCGLUC ####[facility] [address] [address]Dr. Lisa Martinez PROF 14(COMP METB)on 022 Albumin [Mass/Vol] 3.0 g/dL Critically low 3.4-5.0 [facility] Comment on above: Performed By: #### C MP ####[facility] [address] [address]Dr. Lisa Martinez Albumin/Globulin [Mass ratio] 0.6 {ratio} Normal [facility] Comment on above: Performed By: #### C MP ####[facility] [address] [address]Dr. Lisa Martinez ALP [Catalytic activity/Vol] 101 U/L Normal 46-116 [facility] Comment on above: Performed By: #### C MP ####[facility] [address] [place], [place] [address]Dr. Lisa Martinez ALT [Catalytic activity/Vol] 16 U/L Normal 14-59 [facility] Comment on above: Performed By: #### C MP ####[facility] [address] [place], [place] [address]Dr. Lisa Martinez Anion gap [Moles/Vol] 9.7 mmol/L Normal [facility] Comment on above: Performed By: #### C MP ####[facility] [address] [place], [place] [address]Dr. Lisa Martinez AST [Catalytic activity/Vol] 13 U/L Critically low 15-37 [facility] Comment on above: Performed By: #### C MP ####[facility] [address] [place], [place] [address]Dr. Lisa Martinez Bilirubin [Mass/Vol] 0.5 mg/dL Normal 0.2-1.0 [facility] Comment on above: Performed By: #### C MP ####[facility] [address] [place], [place] [address]Dr. Lisa Martinez Calcium [Mass/Vol] 8.8 mg/dL Normal 8.5-10.1 [facility] Comment on above: Performed By: #### C MP ####[facility] [address] [place], [place] [address]Dr. Lisa Martinez Chloride [Moles/Vol] 104 mmol/L Normal 98-107 [facility] Comment on above: Performed By: #### C MP ####[facility] [address] [address]Dr. Lisa Martinez CO2 [Moles/Vol] 26.8 mmol/L Normal 21.0-32.0 [facility] Comment on above: Performed By: #### C MP ####[facility] [address] [address]Dr. Lisa Martinez Creatinine [Mass/Vol] 1.51 mg/dL Critically high 0.55-1.02 [facility] Comment on above: Performed By: #### C MP ####[facility] [address] [place], [place] [address]Dr. Lisa Martinez EGFR-AF NICARAGUAN 40 mL/min/1.73m2 Critically low >=60 [facility] Comment on above: Performed By: #### C MP ####[facility] [address] [place], [place] [address]Dr. Lisa Martinez EGFR-NON AF NICARAGUAN 33 mL/min/1.73m2 Critically low >=60 [facility] Comment on above: Performed By: #### C MP ####[facility] [address] [place], [place] [address]Dr. Lisa Martinez Globulin (S) [Mass/Vol] 4.8 g/dL Normal [facility] Comment on above: Performed By: #### C MP ####[facility] [address] [place], [place] [address]Dr. Lisa Martinez Glucose [Mass/Vol] 177 mg/dL Critically high 74-106 [facility] Comment on above: Performed By: #### C MP ####[facility] [address] [place], [place] [address]Dr. Lsia Martinez Potassium [Moles/Vol] 4.5 mmol/L Normal 3.5-5.1 [facility] Comment on above: Performed By: #### C MP ####[facility] [address] [place], [place] [address]Dr. Lisa Martinez Protein [Mass/Vol] 7.8 g/dL Normal 6.4-8.2 [facility] Comment on above: Performed By: #### C MP ####[facility] [address] [address]DrIngrid Martinez Sodium [Moles/Vol] 136 mmol/L Normal 136-145 [facility] Comment on above: Performed By: #### C MP ####[facility] [address] [address]DrIngrid Martinez Urea nitrogen [Mass/Vol] 28.0 mg/dL Critically high 7.0-18.0 [facility] Comment on above: Performed By: #### C MP ####[facility] [address] [place], [place] [address]DrIngrid Martinez Urea nitrogen/Creatinine [Mass ratio] 18.5 mg/mg Normal [facility] Comment on above: Performed By: #### C MP ####[facility] [address] [place], [place] [address]DrIngrid Martinez BNPon 04-30-2022 Natriuretic peptide B (Bld) [Mass/Vol] 1752.0 pg/mL Normal <=1,800.0 [facility] Comment on above: Performed By: #### B RETAIL SUPPORT SPECIALIST, BMP #### [facility] [address] [place] [address] Dr. Lisa Martinez CBC AUTO DIFFon 04-30-2022 BASO # 0.1 103/ul Normal 0.0-0.1 [facility] Comment on above: Performed By: #### C BC ####[facility] [address] [place], [place] [address]DrIngrid Martinez Basophils/100 WBC (Bld) 0.6 % Normal 0.2-2.0 [facility] Comment on above: Performed By: #### C BC ####[facility] [address] [address]DrIngrid Martinez EO # 0.1 103/ul Normal 0.0-0.7 [facility] Comment on above: Performed By: #### C BC ####[facility] [address] [address]Dr. Lisa Martinez Eosinophils/100 WBC (Bld) 1.2 % Normal 0.9-7.0 [facility] Comment on above: Performed By: #### C BC ####[facility] [address] [address]Dr. Lisa Martinez Erythrocyte distribution width (RBC) [Ratio] 13.2 % Normal 11.0-15.0 [facility] Comment on above: Performed By: #### C BC ####[facility] [address] [address]. Lisa Martinez Hematocrit (Bld) [Volume fraction] 43.4 % Normal 36.0-48.0 [facility] Comment on above: Performed By: #### C BC ####[facility] [address] [place], [place] [address]Dr. Lisa Martinez Hemoglobin (Bld) [Mass/Vol] 14.2 g/dL Normal 12.0-16.0 [facility] Comment on above: Performed By: #### C BC ####[facility] [address] [address]Dr. Lisa Martinez IG # 0.13 10e3/ul Critically high 0.00-0.03 [facility] Comment on above: Performed By: #### C BC ####[facility] [address] [address]Dr. Lisa Martinez IG % 1.6 % Critically high 0.0-0.[address] [facility] Comment on above: Performed By: #### C BC ####[facility] [address] [address]Dr. Lisa Martinez LYMPH # 0.8 103/ul Critically low 1.2-3.8 [facility] Comment on above: Performed By: #### C BC ####[facility] [address] [place], [place] [address]Dr. Lisa Martinez Lymphocytes/100 WBC (Bld) 9.8 % Critically low 20.5-60.0 [facility] Comment on above: Performed By: #### C BC ####[facility] [address] [address]Dr. Fabianachapis Martinez MANUAL DIFF REQ NO Normal [facility] Comment on above: Performed By: #### C BC ####[facility] [address] [address]Dr. Lisa Martinez MCH (RBC) [Entitic mass] 30.0 pg Normal 26.7-34.0 [facility] Comment on above: Performed By: #### C BC ####[facility] [address] [place], [place] [address]Dr. Lisa Martinez MCHC (RBC) [Mass/Vol] 32.7 g/dL Normal 29.9-35.2 [facility] Comment on above: Performed By: #### C BC ####[facility] [address] [place], [place] [address]Dr. Lisa Martinez MCV (RBC) [Entitic vol] 91.8 fL Normal 81.0-99.0 [facility] Comment on above: Performed By: #### C BC ####[facility] [address] [place], [place] [address]Dr. Lisa Martinez MONO # 1.2 103/ul Critically high 0.3-0.[address] [facility] Comment on above: Performed By: #### C BC ####[facility] [address] [place], [place] [address]Dr. Lisa Martinez Monocytes/100 WBC (Bld) 15.0 % Critically high 1.7-12.0 [facility] Comment on above: Performed By: #### C BC ####[facility] [address] [place], [place] [address]Dr. Lisa Martinez NEUT # 5.8 103/ul Normal 1.4-6.5 [facility] Comment on above: Performed By: #### C BC ####[facility] [address] [place], [place] [address]Dr. Lisa Martinez Neutrophils/100 WBC (Bld) 71.8 % Normal 43.0-75.0 [facility] Comment on above: Performed By: #### C BC ####[facility] [address] [place], [place] [address]As. Lisa Martinez Platelet mean volume (Bld) [Entitic vol] 10.5 fL Normal 9.5-13.5 [facility] Comment on above: Performed By: #### C BC ####[facility] [address] [place], [place] [address]Rs. Lisa Martinez PLT 242 103/ul Normal 150-450 [facility] Comment on above: Performed By: #### C BC ####[facility] [address] [place], [place] [address]Bc. Lisa Martinez RBC 4.73 106/ul Normal 4.20-5.40 [facility] Comment on above: Performed By: #### C BC ####[facility] [address] [place], [place] [address]Dv. Lisa Martinez WBC 8.1 103/ul Normal 4.0-11.0 [facility] Comment on above: Performed By: #### C BC ####[facility] [address] [place], [place] [address]. Lisa Martinez CT HEAD WO CONon 04-30-2022 [...] MEENA HAWKINS Date: 2022-04-30 07:46 Normal [facility] CULTURE BLOODon 04-30-2022 Microscopic examination of blood, culture Culture Observations: NO GROWTH AT 5 DAYS. Normal [facility] Comment on above: Performed By: #### B LDCX2 #### [facility] [address] [address] [address] Lisa Martinez Microscopic examination of blood, culture Culture Observations: NO GROWTH AT 5 DAYS. Normal [facility] Comment on above: Performed By: #### B LDCX1 ####[facility] [address] [id number]. Lisa Martinez CULTURE URINEon 04-30-2022 CULTURE URINE Culture Observations : No growth Normal [facility] Comment on above: Performed By: #### U RCX ####[facility] [address] [address]Dr. Lisa Martinez Covid-19 PCR (CVDTB)on 04-09 SARS-CoV-2 (COVID-19) RNA RACIEL+probe Ql (Unsp spec) Detected Critically abnormal NOT DETECTED [facility] Comment on above: Result Comment: This test is not yet approved or cleared by the [place] FDA. When there are no FDA-approved or cleared tests available, and other criteria are met, FDA can make tests available under an emergency access mechanism called an Emergency Use Authorization (EUA). The EUA for this test is supported by the Technical Service Specialist of Health and Human Service's declaration that [...] used). Performed By: #### C VDTBH #### [facility] [address] [place], [place] [id number] Dr. Lisa Martinez ER URINE PROFILEon Bilirubin Ql (U) Negative Normal NEGATIVE [facility] Comment on above: Performed By: #### C BC #### [facility] [address] [place] [address] Dr. Lisa Martinez Clarity (U) CLEAR Normal CLEAR [facility] Comment on above: Performed By: #### C BC #### [facility] [address] [place] [address] Dr. Lisa Martinez Color (U) LT. YELLOW Normal YELLOW [facility] Comment on above: Performed By: #### C BC #### [facility] [address] [place] [address] Dr. Lisa SMITH A micrscopic examina tion will be performed if indicated. Normal [facility] Comment on above: Performed By: #### C BC #### [facility] [address] [place] [address] Dr. Lisa Martinez Glucose Ql (U) Negative Normal NEGATIVE [facility] Comment on above: Performed By: #### C BC #### [facility] [address] [place] [address] Dr. Lisa Martinez Hemoglobin Ql (U) Negative Normal NEGATIVE [facility] Comment on above: Performed By: #### C BC #### [facility] [address] [place] [address] Dr. Lisa Martinez Ketones Ql (U) Negative Normal NEGATIVE [facility] Comment on above: Performed By: #### C BC #### [facility] [address] [place] [address] Dr. Lisa Martinez LEUKOCYTES Negative Normal NEGATIVE [facility] Comment on above: Performed By: #### C BC #### [facility] [address] [place] [address] Dr. Lisa Martinez Nitrite Ql (U) Positive Abnormal NEGATIVE [facility] Comment on above: Performed By: #### C BC #### [facility] [address] [place] [address] Dr. Lisa Martinez pH (U) 5.5 [pH] Normal 5-9 [facility] Comment on above: Performed By: #### C BC #### [facility] [address] [place] [address] Dr. Lisa Martinez SPEC GRAVITY 1.030 Abnormal 1.005-<=1.0 25 [facility] Comment on above: Performed By: #### C BC #### [facility] [address] [place] [address] Dr. Lisa Martinez UA PROTEIN Negative Normal NEGATIVE/ TRACE [facility] Comment on above: Performed By: #### C BC #### [facility] [address] [address] [address] Lisa Martinez UR MICRO IND INDICATED Normal [facility] Comment on above: Performed By: #### C BC #### [facility] [address] [address] [address] Lisa Martinez Urobilinogen Qn (U) 0.2 {Mike'U}/dL Normal 0.2 - 1. 0 [facility] Comment on above: Performed By: #### C BC #### [facility] [address] [address] [address] Lisa Martinez GLYCOHEMOGLOBIN A1Con 2021 ADA RECOMMENDATION SEE BELOW Normal [facility] Comment on above: Result Comment: ADA RECOMMENDED LIMIT 4.0 - 6.0 ADA THERAPEUTIC TARGET < 7.0 ACTION SUGGESTED > 7.0 Performed By: #### B RETAIL SUPPORT SPECIALIST, BMP #### [facility] [address] [place] [address] Dr. Lisa Martinez Glucose [Mass/Vol] 154 mg/dL Normal [facility] Comment on above: Performed By: #### B RETAIL SUPPORT SPECIALIST, BMP #### [facility] [address] [place] [address] Dr. Lisa Martinez HbA1c (Bld) [Mass fraction] 7.0 % Critically high 4.5-6.2 [facility] Comment on above: Performed By: #### B RETAIL SUPPORT SPECIALIST, BMP #### [facility] [address] [place] [address] Dr. Lisa Martinez LACTATE/LACTIC ACIDon 2021 Lactate [Moles/Vol] 1.1 mmol/L Normal 0.4-1.9 [facility] Comment on above: Performed By: #### L ACT ####[facility] [address] [address]Dr. Lisa Martinez LIPASEon 04-30-2022 Lipase [Catalytic activity/Vol] 53.0 U/L Critically low 73.0-393.0 [facility] Comment on above: Performed By: #### B RETAIL SUPPORT SPECIALIST, BMP #### [facility] [address] [address] [address] Lisa Martinez LIVER PROFILEon 04-30-2022 Albumin [Mass/Vol] 3.4 g/dL Normal 3.4-5.0 [facility] Comment on above: Performed By: #### U RCX #### [facility] [address] [place] [address] Dr. Lisa Martinez Albumin/Globulin [Mass ratio] 0.7 {ratio} Normal [facility] Comment on above: Performed By: #### U RCX #### [facility] [address] [place] [address] Dr. Lisa Martinez ALP [Catalytic activity/Vol] 110 U/L Normal 46-116 [facility] Comment on above: Performed By: #### U RCX #### [facility] [address] [place] [address] Dr. Lisa Martinez ALT [Catalytic activity/Vol] 20 U/L Normal 14-59 [facility] Comment on above: Performed By: #### U RCX #### [facility] [address] [place] [address] Dr. Lisa Martinez AST [Catalytic activity/Vol] 16 U/L Normal 15-37 [facility] Comment on above: Performed By: #### U RCX #### [facility] [address] [place] [address] Dr. Lisa Martinez BILI, CONJUGATED 0.2 mg/dL Normal 0.0-0.2 [facility] Comment on above: Performed By: #### U RCX #### [facility] [address] [place] [address] Dr. Lisa Martinez Bilirubin [Mass/Vol] 0.7 mg/dL Normal 0.2-1.0 [facility] Comment on above: Performed By: #### U RCX #### [facility] [address] [place] [address] Dr. Lisa Martinez Globulin (S) [Mass/Vol] 5.0 g/dL Normal [facility] Comment on above: Performed By: #### U RCX #### [facility] [address] [address] [address] Lisa Martinez Protein [Mass/Vol] 8.4 g/dL Critically high 6.4-8.2 [facility] Comment on above: Performed By: #### U RCX #### [facility] [address] [place] [address] Dr. Lisa Martinez POINT OF CARE GLUCOSEon 04-09 Glucose [Mass/Vol] 203 mg/dL Critically high -106 [facility] Comment on above: Performed By: #### B RETAIL SUPPORT SPECIALIST, BMP #### [facility] [address] [place] [address] Dr. Lisa Martinez Glucose [Mass/Vol] 174 mg/dL Critically high [address] [place] [address] Comment on above: Performed By: #### C BC #### [facility] [address] [place] [address] Dr. Lisa Martinez Glucose [Mass/Vol] 149 mg/dL Critically high [facility]106 [facility] Comment on above: Performed By: #### B LDCX2 #### [facility] [address] [place] [address] Dr. Lisa Martinez PROF CHEM 8 (BAS METB)on Anion gap [Moles/Vol] 15.3 mmol/L Normal [facility] Comment on above: Performed By: #### C BC #### [facility] [address] [place] [address] Dr. Lisa Martinez Calcium [Mass/Vol] 9.1 mg/dL Normal 8.5-10.1 [facility] Comment on above: Performed By: #### C BC #### [facility] [address] [place] [address] Dr. Lisa Martinez Chloride [Moles/Vol] 98 mmol/L Normal 98-107 [facility] Comment on above: Performed By: #### C BC #### [facility] [address] [place] [address] Dr. Lisa Martinez CO2 [Moles/Vol] 24.4 mmol/L Normal 21.0-32.0 [facility] Comment on above: Performed By: #### C BC #### [facility] [address] [address] [address] Lisa Martinez Creatinine [Mass/Vol] 1.44 mg/dL Critically high 0.55-1.02 [facility] Comment on above: Performed By: #### C BC #### [facility] [address] [address] [address] Lisa Martinez EGFR-AF NICARAGUAN 42 mL/min/1.73m2 Critically low >=60 [facility] Comment on above: Performed By: #### C BC #### [facility] [address] [address] [address] Lisa Martinez EGFR-NON AF NICARAGUAN 35 mL/min/1.73m2 Critically low >=60 [facility] Comment on above: Performed By: #### C BC #### [facility] [address] [address] [address] Lisa Martinez Glucose [Mass/Vol] 225 mg/dL Critically high 74-106 [facility] Comment on above: Performed By: #### C BC #### [facility] [address] [address] [address] Lisa Martinez Potassium [Moles/Vol] 4.7 mmol/L Normal 3.5-5.1 [facility] Comment on above: Performed By: #### C BC #### [facility] [address] [address] [address] Lisa Martinez Sodium [Moles/Vol] 133 mmol/L Critically low 136-145 [facility] Comment on above: Performed By: #### C BC #### [facility] [address] [address] [address] Lisa Martinez Urea nitrogen [Mass/Vol] 37.0 mg/dL Critically high 7.0-18.0 [facility] Comment on above: Performed By: #### C BC #### [facility] [address] [address] [address] Lisa Martinez Urea nitrogen/Creatinine [Mass ratio] 25.7 mg/mg Normal [facility] Comment on above: Performed By: #### C BC #### [facility] [address] [place] [address] Dr. Lisa Martinez PROTIMEon 04-30-2022 INR Coag (PPP) [Relative time] 1.02 {INR} Normal [facility] Comment on above: Performed By: #### K U #### [facility] [address] [place] [address] Dr. Lisa Martinez INR GUIDELINES SEE BELOW Normal [facility] Comment on above: Result Comment: ANTONY RED INR: 2.0 - 3.0 CONDITIONS NOT LISTED BELOW 2.5 - 3.5 FOR PROSTHETIC HEART VALVE REPLACEMENT 2.5 - 3.5 RECURRENT THROMBOSIS Performed By: #### K U #### [facility] [address] [place] [address] Dr. Lisa Martinez PT Coag (PPP) [Time] 11.0 s Normal 9.0-11.6 [facility] Comment on above: Performed By: #### K U #### [facility] [address] [place] [address] Dr. Lisa Martinez PTTon 04-30-2022 aPTT Coag (Bld) [Time] 27.5 s Normal 22.3-36.2 [facility] Comment on above: Performed By: #### K U #### [facility] [address] [place] [address] Dr. Lisa Martinez TROPONIN, HIGH SENSITIVITYon 04-30-2022 HSTROP 20.0 pg/mL Normal 4.0-51.3 [facility] Comment on above: Result Comment: CUT- OFF POINTS HAVE BEEN ESTABLISHED BASED ON THE FOURTH UNIVERSAL DEFINITIONS OF MYOCARDIAL INFARCTION. THE UPPER REFERENCE LIMIT (URL) OF TROPONIN, DEFINED THE 99TH PERCENTILE OF cTnI DISTRIBUTION IN A REFERENCE POPULATION, HAS BEEN CONFIRMED THE DECISION THRESHOLD FOR NV DIAGNOSIS. Performed By: #### U RCX #### [facility] [address] [place] [address] Dr. Lisa Martinez URINE MICROSCOPIC ONLYon BACTERIA MODERATE Abnormal NONE SEEN [facility] Comment on above: Performed By: #### K U #### [facility] [address] [place] [address] Dr. Lisa Martinez Bacteria identified Cx Nom (U) INDICATED Normal [facility] Comment on above: Performed By: #### K U #### [facility] [address] [place] [address] Dr. Lisa Martinez CAST NONE SEEN Normal NONE SEEN [facility] Comment on above: Performed By: #### K U #### [facility] [address] [place] [address] Dr. Lisa Martinez Crystals LM Nom (Urine sed) NONE SEEN Normal NONE SEEN [facility] Comment on above: Performed By: #### K U #### [facility] [address] [place] [address] Dr. Lisa Martinez Epithelial cells LM Ql (Urine sed) RARE Normal NONE SEEN /RARE [facility] Comment on above: Performed By: #### K U #### [facility] [address] [place] [address] Dr. Lisa Martinez MUCOUS NONE SEEN Normal NONE SEEN [facility] Comment on above: Performed By: #### K U #### [facility] [address] [place] [address] Dr. Lisa Martinez RBC NONE SEEN Abnormal 0-2 [facility] Comment on above: Performed By: #### K U #### [facility] [address] [place] [address] Dr. Lisa Martinez WBC 0-2 Abnormal NONE SEEN [facility] Comment on above: Performed By: #### K U #### [facility] [address] [place] [address] Dr. Lisa Martinez XR CHEST 1 Von [...] MEENA HAWKINS Date: 2022-04-30 07:42 Normal [facility] FREE T3on 04-12-2022 FREE T3 2.10 pg/mlL Critically low 2.18-3.[address] [facility] Comment on above: Performed By: #### C VDTBH #### [facility] [address] [place] [address] Dr. Lisa Martinez FREE T4on 04-12-2022 Free T4 [Mass/Vol] 0.88 ng/dL Normal 0.76-1.46 [facility] Comment on above: Performed By: #### B LDCX2 #### [facility] [address] [place] [address] Dr. Lisa Martinez TSHon 04-12-2022 TSH 5.007 uIU/mL Critically high 0.358-3.740 [facility] Comment on above: Performed By: #### C VDTBH #### [facility] [address] [place] [address] Dr. Lisa Martinez US THYROIDon 04-12-2022 US [...] MEENA HAWKINS Date: 2022-04-12 13:20 Normal [facility] CBC AUTO DIFFon 02-12-2022 BASO # 0.1 103/ul Normal 0.0-0.1 [facility] Comment on above: Performed By: #### K U #### [facility] [address] [address] [address] Lisa Martinez Basophils/100 WBC (Bld) 0.7 % Normal 0.2-2.0 [facility] Comment on above: Performed By: #### K U #### [facility] [address] [address] [address] Lisa Martinez EO # 0.3 103/ul Normal 0.0-0.7 [facility] Comment on above: Performed By: #### K U #### [facility] [address] [address] [address] Lisa Martinez Eosinophils/100 WBC (Bld) 3.3 % Normal 0.9-7.0 [facility] Comment on above: Performed By: #### K U #### [facility] [address] [address] [address] Lisa Martinez Erythrocyte distribution width (RBC) [Ratio] 13.0 % Normal 11.0-15.0 [facility] Comment on above: Performed By: #### K U #### [facility] [address] [address] [address] Lisa Martinez Hematocrit (Bld) [Volume fraction] 34.6 % Critically low 36.0-48.0 [facility] Comment on above: Performed By: #### K U #### [facility] [address] [address] [address] Lisa Martinez Hemoglobin (Bld) [Mass/Vol] 11.1 g/dL Critically low 12.0-16.0 [facility] Comment on above: Performed By: #### K U #### [facility] [address] [address] [address] Lisa Martinez IG # 0.04 10e3/ul Critically high 0.00-0.03 [facility] Comment on above: Performed By: #### K U #### [facility] [address] [address] [address] Lisa Martinez IG % 0.4 % Normal 0.0-0.5 [facility] Comment on above: Performed By: #### K U #### [facility] [address] [address] [address] Lisa Martinez LYMPH # 1.0 103/ul Critically low 1.2-3.8 [facility] Comment on above: Performed By: #### K U #### [facility] [address] [address] [address] Lisa Martinez Lymphocytes/100 WBC (Bld) 10.6 % Critically low 20.5-60.0 [facility] Comment on above: Performed By: #### K U #### [facility] [address] [address] [address] Lisa Martinez MANUAL DIFF REQ NO Normal [facility] Comment on above: Performed By: #### K U #### [facility] [address] [place] [address] Dr. Lisa Martinez MCH (RBC) [Entitic mass] 31.3 pg Normal 26.7-34.0 [facility] Comment on above: Performed By: #### K U #### [facility] [address] [place] [address] Dr. Lisa Martinez MCHC (RBC) [Mass/Vol] 32.1 g/dL Normal 29.9-35.2 [facility] Comment on above: Performed By: #### K U #### [facility] [address] [address] [address] Lisa Martinez MCV (RBC) [Entitic vol] 97.5 fL Normal 81.0-99.0 [facility] Comment on above: Performed By: #### K U #### [facility] [address] [address] [address] Lisa Martinez MONO # 0.9 103/ul Critically high 0.3-0.8 [facility] Comment on above: Performed By: #### K U #### [facility] [address] [address] [address] Lisa Martinez Monocytes/100 WBC (Bld) 9.5 % Normal 1.7-12.0 [facility] Comment on above: Performed By: #### K U #### [facility] [address] [address] [address] Lisa Martinez NEUT # 6.9 103/ul Critically high 1.4-6.[address] [facility] Comment on above: Performed By: #### K U #### [facility] [address] [address] [address] Lisa Martinez Neutrophils/100 WBC (Bld) 75.5 % Critically high 43.0-75.0 [facility] Comment on above: Performed By: #### K U #### [facility] [address] [address] [address] Lisa Martinez Platelet mean volume (Bld) [Entitic vol] 9.9 fL Normal 9.5-13.5 [facility] Comment on above: Performed By: #### K U #### [facility] [address] [place] [address] Dr. Lisa Martinez PLT 255 103/ul Normal 150-450 [facility] Comment on above: Performed By: #### K U #### [facility] [address] [address] [address] Lisa Martinez RBC 3.55 106/ul Critically low 4.20-5.[address] [facility] Comment on above: Performed By: #### K U #### [facility] [address] [place] [address] Dr. Lisa Martinez WBC 9.2 103/ul Normal 4.0-11.0 [facility] Comment on above: Performed By: #### K U #### [facility] [address] [place] [address] Dr. Lisa Martinez CRPon 02-12-2022 CRP 0.7 mg/dL Normal <=1.0 [facility] Comment on above: Performed By: #### B RETAIL SUPPORT SPECIALIST, BMP #### [facility] [address] [place] [address] Dr. Lisa Martinez SED RATE WESTERGRENon 2021 SED RATE 56 mm/hr Critically high <=[address] [facility] Comment on above: Performed By: #### S EDR ####[facility] [address] [place], [place] [address]AzDr. Lisa Martinez URIC ACID SERUMon 02-12-2022 Urate [Mass/Vol] 9.2 mg/dL Critically high 2.6-6.0 [facility] Comment on above: Performed By: #### B RETAIL SUPPORT SPECIALIST, BMP #### [facility] [address] [address] [address] Lisa Martinez XR FOOT LT MIN [...] ROSINA MENENDEZ Date: 2022-02-12 13:01 Normal [facility] HEMOGRAM AND PLATELon 2021 Hematocrit (Bld) [Volume fraction] 35.7 % Critically low 36.0-48.0 [facility] Comment on above: Performed By: #### U RCX #### [facility] [address] [address] [address] Lisa Martinez Hemoglobin (Bld) [Mass/Vol] 11.7 g/dL Critically low 12.0-16.0 [facility] Comment on above: Performed By: #### U RCX #### [facility] [address] [address] [address] Lisa Martinez MCH (RBC) [Entitic mass] 31.5 pg Normal 26.7-34.0 [facility] Comment on above: Performed By: #### U RCX #### [facility] [address] [address] [address] Lisa Martinez MCHC (RBC) [Mass/Vol] 32.8 g/dL Normal 29.9-35.2 [facility] Comment on above: Performed By: #### U RCX #### [facility] [address] [address] [address] Lisa Martinez MCV (RBC) [Entitic vol] 96.2 fL Normal 81.0-99.0 [facility] Comment on above: Performed By: #### U RCX #### [facility] [address] [place] [address] Dr. Lisa Martinez PLT 268 103/ul Normal 150-450 [facility] Comment on above: Performed By: #### U RCX #### [facility] [address] [place] [address] Dr. Lisa Martinez RBC 3.71 106/ul Critically low 4.20-5.40 [facility] Comment on above: Performed By: #### U RCX #### [facility] [address] [place] [address] Dr. Lisa Martinez WBC 9.3 103/ul Normal 4.0-11.0 [facility] Comment on above: Performed By: #### U RCX #### [facility] [address] [place] [address] Dr. Lisa Martinez PROF CHEM 8 (BAS METB)on Anion gap [Moles/Vol] 11.2 mmol/L Normal [facility] Comment on above: Performed By: #### C VDTBH #### [facility] [address] [place] [address] Dr. Lisa Martinez Calcium [Mass/Vol] 9.1 mg/dL Normal 8.5-10.1 [facility] Comment on above: Performed By: #### C VDTBH #### [facility] [address] [place] [address] Dr. Lisa Martinez Chloride [Moles/Vol] 104 mmol/L Normal 98-107 [facility] Comment on above: Performed By: #### C VDTBH #### [facility] [address] [place] [address] Dr. Lisa Martinez CO2 [Moles/Vol] 30.6 mmol/L Normal 21.0-32.0 [facility] Comment on above: Performed By: #### C VDTBH #### [facility] [address] [place] [address] Dr. Lisa Martinez Creatinine [Mass/Vol] 1.64 mg/dL Critically high 0.55-1.02 [facility] Comment on above: Performed By: #### C VDTBH #### [facility] [address] [address] [address] Lisa Martinez EGFR-AF NICARAGUAN 36 mL/min/1.73m2 Critically low >=60 [facility] Comment on above: Performed By: #### C VDTBH #### [facility] [address] [address] [address] Lisa Martinez EGFR-NON AF NICARAGUAN 30 mL/min/1.73m2 Critically low >=60 [facility] Comment on above: Performed By: #### C VDTBH #### [facility] [address] [place] [address] Dr. Lisa Martinez Glucose [Mass/Vol] 61 mg/dL Critically low 74-106 [facility] Comment on above: Performed By: #### C VDTBH #### [facility] [address] [address] [address] Lisa Martinez Potassium [Moles/Vol] 4.8 mmol/L Normal 3.5-5.1 [facility] Comment on above: Performed By: #### C VDTBH #### [facility] [address] [place] [address] Dr. Lisa Martinez Sodium [Moles/Vol] 141 mmol/L Normal 136-145 [facility] Comment on above: Performed By: #### C VDTBH #### [facility] [address] [place] [address] Dr. Lisa Martinez Urea nitrogen [Mass/Vol] 34.0 mg/dL Critically high 7.0-18.0 [facility] Comment on above: Performed By: #### C VDTBH #### [facility] [address] [place] [address] Dr. Lisa Martinez Urea nitrogen/Creatinine [Mass ratio] 20.7 mg/mg Normal [facility] Comment on above: Performed By: #### C VDTBH #### [facility] [address] [place] [address] Dr. Lisa Martinez Cardiovascular Lab Reporton 12-21-2021 Cardiovascular Lab Report [facility] Patient Name: [facility] MR #: [id number] Physician: Josefina Weston of [facility] Service Date: 12/20/2021 Division of Birthdate: 1940 Cardiology Room #: [facility] Cardiovascular Services [address] [place] [address] Cardiovascular Laboratory Report INDICATION: The patient is [...] the consent. She was brought to the photo lab technician in a fasting state. The right neck area was prepped and draped in usual fashion. Micropuncture technique and ultrasound guidance were used for access in the right internal jugular vein. A 6-British x 11 cm sheath was placed. A 6-British Becker catheter was used for right heart [...] Nova M.D. Date Trans: 12/21/2021 06:38 A/kali [id number] cc: Jasvir León M.D. [address] [address] [address] [facility]on 12-07 SARS-CoV-2 (COVID-19) RNA RACIEL+probe Ql (Unsp spec) Not detected Normal NOT DETECTED [facility] Comment on above: Result Comment: This test is not yet approved or cleared by the [place] FDA. When there are no FDA-approved or cleared tests available, and other criteria are met, FDA can make tests available under an emergency access mechanism called an Emergency Use Authorization (EUA). The EUA for this test is supported by the Technical Service Specialist of Health and Human Service's (HHS's) declaration [...] SARS-CoV-2. Performed By: #### K U #### [facility] [address] [place] [address] Dr. Lisa Martinez HEMOGRAM AND PLATELon 2021 Hematocrit (Bld) [Volume fraction] 37.7 % Normal 36.0-48.0 [facility] Comment on above: Performed By: #### H H ####[facility] [address] [address]Dr[address] Lisa Martinez Hemoglobin (Bld) [Mass/Vol] 11.8 g/dL Critically low 12.0-16.0 [facility] Comment on above: Performed By: #### H H ####[facility] [address] [address]Dr. Lisa Martinez MCH (RBC) [Entitic mass] 30.7 pg Normal 26.7-34.0 [facility] Comment on above: Performed By: #### H H ####[facility] [address] [address]Dr. Lisa Martinez MCHC (RBC) [Mass/Vol] 31.3 g/dL Normal 29.9-35.2 [facility] Comment on above: Performed By: #### H H ####[facility] [address] [place], [place] [address]Dr. Lisa Martinez MCV (RBC) [Entitic vol] 98.2 fL Normal 81.0-99.0 [facility] Comment on above: Performed By: #### H H ####[facility] [address] [address]Dr. Lisa Martinez PLT 238 103/ul Normal 150-450 [facility] Comment on above: Performed By: #### H H ####[facility] [address] [place], [place] [address]Dr. Lisa Martinez RBC 3.84 106/ul Critically low 4.20-5.[address] [facility] Comment on above: Performed By: #### H H ####[facility] [address] [place], [place] [address]Dr. Lisa Martinez WBC 8.6 103/ul Normal 4.0-11.0 [facility] Comment on above: Performed By: #### H H ####[facility] [address] [place], [place] [address]Dr. Lisa Martinez PROF CHEM 8 (BAS METB)on Anion gap [Moles/Vol] 13.7 mmol/L Normal [facility] Comment on above: Performed By: #### B MP ####[facility] [address] [id number][address] Lisa Martinez Calcium [Mass/Vol] 9.1 mg/dL Normal 8.5-10.1 [facility] Comment on above: Performed By: #### B MP ####[facility] [address] [address]Dr. Lisa Martinez Chloride [Moles/Vol] 107 mmol/L Normal 98-107 [facility] Comment on above: Performed By: #### B MP ####[facility] [address] [address]Dr. Lisa Martinez CO2 [Moles/Vol] 26.9 mmol/L Normal 21.0-32.0 [facility] Comment on above: Performed By: #### B MP ####[facility] [address] [address]Dr. Lisa Martinez Creatinine [Mass/Vol] 1.48 mg/dL Critically high 0.55-1.02 [facility] Comment on above: Performed By: #### B MP ####[facility] [address] [address]Dr. Lisa Martinez EGFR-AF NICARAGUAN 41 mL/min/1.73m2 Critically low >=60 [facility] Comment on above: Performed By: #### B MP ####[facility] [address] [place] [address]Dr. Lisa Martinez EGFR-NON AF NICARAGUAN 34 mL/min/1.73m2 Critically low >=60 [facility] Comment on above: Performed By: #### B MP ####[facility] [address] [address]Dr. Lisa Martinez Glucose [Mass/Vol] 161 mg/dL Critically high 74-106 [facility] Comment on above: Performed By: #### B MP ####[facility] [address] [place], [place] [address]Rx. Lisa Martinez Potassium [Moles/Vol] 4.6 mmol/L Normal 3.5-5.1 [facility] Comment on above: Performed By: #### B MP ####[facility] [address] [place], [place] [address]Kj. Lisa Martinez Sodium [Moles/Vol] 143 mmol/L Normal 136-145 [facility] Comment on above: Performed By: #### B MP ####[facility] [address] [place], [place] [address]Ez. Lisa Martinez Urea nitrogen [Mass/Vol] 35.0 mg/dL Critically high 7.0-18.0 [facility] Comment on above: Performed By: #### B MP ####[facility] [address] [place], [place] [address]Gr. Lisa Martinez Urea nitrogen/Creatinine [Mass ratio] 23.6 mg/mg Normal [facility] Comment on above: Performed By: #### B MP ####[facility] [address] [place], [place] [address]Ef. Lisa Martinez Comprehensive Metabolic Pane yesica 08-17-2021 Albumin [Mass/Vol] 4.4 g/dL Normal 3.6-5.1 [facility] Comment on above: Performed By: #### C MP #### [facility] [address] [place], [place] [id number] Albumin/Globulin [Mass ratio] 1.4 {ratio} Normal 1.0-2.5 [facility] Comment on above: Performed By: #### C MP #### [facility] [address] [place], [place] [id number] ALP [Catalytic activity/Vol] 89 U/L Normal 35-119 [facility] Comment on above: Performed By: #### C MP #### [facility] [address], [place] [id number] ALT [Catalytic activity/Vol] 13 U/L Normal 6-33 [facility] Comment on above: Result Comment: 06/08 Female reference range changed. Performed By: #### C MP #### [facility] [address] [place], [place] [id number] Anion gap [Moles/Vol] 18 mmol/L Normal 12-20 [facility] Comment on above: Result Comment: Rafael ctive 07/14/2019 reference range changed. Performed By: #### C MP #### [facility] [address] [place], [place] [id number] AST [Catalytic activity/Vol] 20 U/L Normal 9-34 [facility] Comment on above: Performed By: #### C MP #### [facility] [address] [place], [place] [id number] Bilirubin [Mass/Vol] 0.34 mg/dL Normal 0.30-1.20 [facility] Comment on above: Performed By: #### C MP #### [facility] [address] [place], [place] [id number] BUN/CREA 28 Ratio High 6-22 [facility] Comment on above: Performed By: #### C MP #### [facility] [address] [place], [place] [id number] Calcium [Mass/Vol] 9.8 mg/dL Normal 8.6-10.2 [facility] Comment on above: Performed By: #### C MP #### [facility] [address] [place], [place] [id number] Chloride [Moles/Vol] 106 mmol/L Normal 98-107 [facility] Comment on above: Performed By: #### C MP #### [facility] [address] [place], [place] [id number] CO2 [Moles/Vol] 23 mmol/L Normal 20-31 [facility] Comment on above: Performed By: #### C MP #### [facility] [address] [place], [place] [id number] Creatinine [Mass/Vol] 1.1 mg/dL Normal 0.6-1.4 [facility] Comment on above: Performed By: #### C MP #### [facility] [address] [place], [place] [id number] eGFRAA 59 mL/min/1.73m2 Low >60 [facility] Specialist Comment on above: Performed By: #### C MP #### [facility] [address] [place], [place] [id number] eGFRNAA 49 mL/min/1.73m2 Low >60 [facility] Specialist Comment on above: Performed By: #### C MP #### [facility] [address] [place], [place] [id number] Globulin (S) [Mass/Vol] 3.2 g/dL Normal 1.9-3.7 [facility] Comment on above: Performed By: #### C MP #### [facility] [address] [place], [place] [id number] Glucose [Mass/Vol] 51 mg/dL Low 65-99 [facility] Specialist Comment on above: Result Comment: For FASTING Glucose --- ADA reference ranges: Normal 65-99 mg/dl Prediabetes 100-125 Diabetes >/= 126 Performed By: #### C MP #### [facility] [address], [place] [id number] Potassium [Moles/Vol] 4.5 mmol/L Normal 3.5-5.5 [facility] Comment on above: Performed By: #### C MP #### [facility] [address] [place], [place] [id number] Protein [Mass/Vol] 7.6 g/dL Normal 6.1-8.1 [facility] Specialist Comment on above: Performed By: #### C MP #### [facility] [address] [place], [place] [id number] Sodium [Moles/Vol] 143 mmol/L Normal 135-146 [facility] Specialist Comment on above: Performed By: #### C MP #### [facility] [address], [place] [id number] Urea nitrogen [Mass/Vol] 31 mg/dL High 7-25 [facility] Specialist Comment on above: Performed By: #### C MP #### [facility] [address] [place], [place] [id number] Complete Blood Counton 08-03 Erythrocyte distribution width (RBC) [Ratio] 13.2 % Normal 11.0-15.0 [facility] Special[facility] Comment on above: Performed By: #### C BC, TSH, FT3, FT4, CMP #### [facility] [address] [place], [place] [id number] Hematocrit (Bld) [Volume fraction] 36.6 % Normal 35.0-47.0 [facility] Special[facility] Comment on above: Performed By: #### C BC, TSH, FT3, FT4, CMP #### [facility] [address] [place], [place] [id number] Hemoglobin (Bld) [Mass/Vol] 11.4 g/dL Low 11.6-15.5 [facility] Specialist Comment on above: Performed By: #### C BC, TSH, FT3, FT4, CMP #### [facility] [address] [place], [place] [id number] MCH (RBC) [Entitic mass] 31.1 pg Normal 27.0-33.0 [facility] Specialist Comment on above: Performed By: #### C BC, TSH, FT3, FT4, CMP #### [facility] [address], [place] [id number] MCHC (RBC) [Mass/Vol] 31.1 g/dL Low 32.0-36.0 [facility] Comment on above: Performed By: #### C BC, TSH, FT3, FT4, CMP #### [facility] [address] [place], [place] [id number] MCV (RBC) [Entitic vol] 100 fL Normal 80-100 [facility] Specialist Comment on above: Performed By: #### C BC, TSH, FT3, FT4, CMP #### [facility] [address] [place], [place] [id number] Platelet mean volume (Bld) [Entitic vol] 10.10 fL Normal 7.50-12.50 [facility] Specialist Comment on above: Performed By: #### C BC, TSH, FT3, FT4, CMP #### [facility] [address] [place], [place] [id number] Platelets (Bld) [#/Vol] 245 10*3/uL Normal 140-400 [facility] Specialist Comment on above: Performed By: #### C BC, TSH, FT3, FT4, CMP #### [facility] [address] [place], [place] [id number] RBC (Bld) [#/Vol] 3.66 10*6/uL Low 3.90-5.20 [facility] Specialist Comment on above: Performed By: #### C BC, TSH, FT3, FT4, CMP #### [facility] [address] [place], [place] [id number] RDW-SD 48.1 fL Normal 37.0-50.0 [facility] Specialist Comment on above: Performed By: #### C BC, TSH, FT3, FT4, CMP #### [facility] [address] [place], [place] [id number] WBC (Bld) [#/Vol] 8.7 10*3/uL Normal 3.8-11.0 [facility] Specialist Comment on above: Performed By: #### C BC, TSH, FT3, FT4, CMP #### [facility] [address] [place], [place] [id number] Comprehensive Metabolic Pane [facility] 08-03-2021 Albumin [Mass/Vol] 3.9 g/dL Normal 3.6-5.1 [facility] Comment on above: Performed By: #### C BC, TSH, FT3, FT4, CMP #### [facility] [address] [place], [place] [id number] Albumin/Globulin [Mass ratio] 1.1 {ratio} Normal 1.0-2.5 [facility] Specialist Comment on above: Performed By: #### C BC, TSH, FT3, FT4, CMP #### [facility] [address] [place], [place] [id number] ALP [Catalytic activity/Vol] 105 U/L Normal 35-119 [facility] Specialist Comment on above: Performed By: #### C BC, TSH, FT3, FT4, CMP #### [facility] [address] [place], [place] [id number] ALT [Catalytic activity/Vol] 10 U/L Normal 6-33 [facility] Comment on above: Result Comment: 06/08 Female reference range changed. Performed By: #### C BC, TSH, FT3, FT4, CMP #### [facility] [address] [place], [place] [id number] Anion gap [Moles/Vol] 20 mmol/L Normal 12-20 [facility] Comment on above: Result Comment: Tristanerik ctive 07/14/2019 reference range changed. Performed By: #### C BC, TSH, FT3, FT4, CMP #### [facility] [address] [place], [place] [id number] AST [Catalytic activity/Vol] 19 U/L Normal 9-34 [facility] Comment on above: Performed By: #### C BC, TSH, FT3, FT4, CMP #### [facility] [address] [place], [place] [id number] BUN/CREA 24 Ratio High 6-22 [facility] Comment on above: Performed By: #### C BC, TSH, FT3, FT4, CMP #### [facility] [address] [place], [place] [id number] Calcium [Mass/Vol] 9.6 mg/dL Normal 8.6-10.2 [facility] Comment on above: Performed By: #### C BC, TSH, FT3, FT4, CMP #### [facility] [address] [place], [place] [id number] Chloride [Moles/Vol] 106 mmol/L Normal 98-107 [facility] Comment on above: Performed By: #### C BC, TSH, FT3, FT4, CMP #### [facility] [address] [place], [place] [id number] CO2 [Moles/Vol] 21 mmol/L Normal 20-31 [facility] Comment on above: Performed By: #### C BC, TSH, FT3, FT4, CMP #### [facility] [address] [place], [place] [id number] Creatinine [Mass/Vol] 2.6 mg/dL High 0.6-1.4 [facility] Comment on above: Performed By: #### C BC, TSH, FT3, FT4, CMP #### [facility] [address] [place], [place] [id number] eGFRAA 22 mL/min/1.73m2 Low >60 [facility] Comment on above: Performed By: #### C BC, TSH, FT3, FT4, CMP #### [facility] [address] [place], [place] [id number] eGFRNAA 18 mL/min/1.73m2 Low >60 [facility] Comment on above: Performed By: #### C BC, TSH, FT3, FT4, CMP #### [facility] [address] [place], [place] [id number] Globulin (S) [Mass/Vol] 3.4 g/dL Normal 1.9-3.7 [facility] Comment on above: Performed By: #### C BC, TSH, FT3, FT4, CMP #### [facility] [address] [place], [place] [id number] Glucose [Mass/Vol] 93 mg/dL Normal 65-99 [facility] Comment on above: Result Comment: For FASTING Glucose --- ADA reference ranges: Normal 65-99 mg/dl Prediabetes 100-125 Diabetes >/= 126 Performed By: #### C BC, TSH, FT3, FT4, CMP #### [facility] [address] [place], [place] [id number] Potassium [Moles/Vol] 6.9 mmol/L Critically high 3.5-5.5 [facility] Comment on above: Result Comment: Repo rt given to Dr León (K) Performed By: #### C BC, TSH, FT3, FT4, CMP #### [facility] [address] [place], [place] [id number] Protein [Mass/Vol] 7.3 g/dL Normal 6.1-8.1 [facility] [place] [facility] Coord[facility] Comment on above: Performed By: #### C BC, TSH, FT3, FT4, CMP #### [facility] [address] [place], [place] [id number] Sodium [Moles/Vol] 139 mmol/L Normal 135-146 [facility] [place] [facility] Comment on above: Performed By: #### C BC, TSH, FT3, FT4, CMP #### [facility] [address] [place], [place] [id number] TBIL <0.3 Normal [facility] Comment on above: Performed By: #### C BC, TSH, FT3, FT4, CMP #### [facility] [address] [place], [place] [id number] Urea nitrogen [Mass/Vol] 62 mg/dL High 7-25 [facility] Comment on above: Performed By: #### C BC, TSH, FT3, FT4, CMP #### [facility] [address] [place], [place] [id number] Free T3on 08-03-2021 FT3 2.05 pg/mL Normal 2.00-4.40 [facility] Comment on above: Performed By: #### C BC, TSH, FT3, FT4, CMP #### [facility] [address] [place], [place] [id number] Free T4on 08-03-2021 Free T4 [Mass/Vol] 0.91 ng/dL Normal 0.80-1.80 [facility] Comment on above: Performed By: #### C BC, TSH, FT3, FT4, CMP #### [facility] [address] [place], [place] [id number] Q - B-TYPE NATRIURETIC (BNP) on 08-03-2021 Natriuretic peptide B (Bld) [Mass/Vol] 283 pg/mL High <100 [facility] Specialist Comment on above: Order Comment: [facility] Testing performed at: QPT, [facility], [address] [place] [address], [address] [place] [address], [id number], Instrument Mechanic: Boone Calderón MD [facility] Collection Date/Time: [id number] [facility] Results Received Date/Time: [id number] [facility] Reported Date/Time: Result Comment: BNP levels increase with age in the general population with the highest values seen in individuals greater than 75 years of age. Reference: J. Am. Priya. Cardiol. 2002; 40:976-982. Performed By: #### [id number] #### [facility] [address] [place] [address] TSHon 08-03-2021 TSH 3.450 uIU/mL Normal 0.400-4.500 [facility] io Service Coordinator [facility] Comment on above: Performed By: #### C BC, TSH, FT3, FT4, CMP #### [facility] [address] [place], [place] [id number] COVID Quick Testingon 2020 Result Negative [employer] [facility] [employer] Other Quick Fluon 06-06-2021 FLUAV Ab CF (S) [Titer] Negative [employer] Other FLUBV Ab CF (S) [Titer] Negative [employer] [facility] [employer] Other Vital Signs Date Time Vital Sign Value Performing Clinician Facility 05-08-2024 11:16-0400 Body height 154.9 cm Jasvir León MD Work Phone: [facility] 05-08-2024 11:16-0400 Body mass index (BMI) [Ratio] 27.78 kg/m2 Jasvir León MD Work Phone: [facility] 05-08-2024 11:16-0400 Body weight 66.68 kg Jasvir León MD Work Phone: [facility] 05-08-2024 11:16-0400 Diastolic blood pressure 70 mm[Hg] Jasvir León MD Work Phone: [facility] 05-08-2024 11:16-0400 Heart rate 58 /min Jasvir León MD Work Phone: [facility] 05-08-2024 11:16-0400 SaO2% (BldA) [Mass fraction] 96 % Jasvir León MD Work Phone: [facility] 05-08-2024 11:16-0400 Systolic blood pressure 128 mm[Hg] Jasvir León MD Work Phone: [facility] 04-25-2024 16:40-0400 Body height 157.48 cm II Jasvir León Work Phone: [facility] 04-25-2024 13:31-0400 Diastolic blood pressure 69 mm[Hg] II Jasvir León Work Phone: [facility] 04-25-2024 13:31-0400 Heart rate 76 /min II Jasvir León Work Phone: [facility] 04-25-2024 13:31-0400 Systolic blood pressure 157 mm[Hg] II Jasvir León Work Phone: [facility] 04-25-2024 12:00-0400 Inhaled oxygen flow rate 3 L/min II Jasvir León Work Phone: [facility] 04-25-2024 08:00-0400 Body temperature 97.7 [degF] II Jasvir León Work Phone: [facility] 04-25-2024 08:00-0400 Respiratory rate 22 /min II Jasvir León Work Phone: [facility] 04-25-2024 08:00-0400 SaO2% (BldA) [Mass fraction] 98 % II Jasvir León Work Phone: [facility] 04-25-2024 02:25-0400 Body weight 75.2 kg II Jasvir León Work Phone: [facility] 08-07-2023 10:53-0500 Diastolic blood pressure 64 mm[Hg] Kd Hines MD [facility] 08-07-2023 10:53-0500 Heart rate 109 /min Kd Hines MD [facility] 08-07-2023 10:53-0500 Respiratory rate 18 /min Kd Hines MD Work Phone[facility] 08-07-2023 10:53-0500 SaO2% (BldA) [Mass fraction] 90 % Kd Hines MD Work Phone[facility] 08-07-2023 10:53-0500 Systolic blood pressure 94 mm[Hg] dK Hines MD [facility] 06-06-2021 12:45-0500 Body height 157.48 cm Mariam Ginty Other [employer] Other 06-06-2021 12:45-0500 Body mass index (BMI) [Ratio] 34.75 kg/m2 Mariam Ginty Other [employer] Other 06-06-2021 12:45-0500 Body temperature 96.8 [degF] Mariam Ginty Other [employer] Other 06-06-2021 12:45-0500 Body weight 86.18 kg Mariam Ginty Other [employer] Other 06-06-2021 12:45-0500 Diastolic blood pressure 78 mm[Hg] Mariam Ginty Other [employer] Other 06-06-2021 12:45-0500 SaO2% (BldA) [Mass fraction] 94 % Mariam Ginty Other [facility] Other 06-06-2021 12:45-0500 Systolic blood pressure 131 mm[Hg] Mariam Ginty Other [employer] Other Encounters Encounter Date Encounter Type Care Provider Facility Start: 05-13-2024 End: 05-13-2024 [facility] Start: 05-08-2024 End: 05-08-2024 Bamboo flowsheet Jasvir León MD Work Phone: [facility] Start: 05-08-2024 End: 05-08-2024 Bamboo flowsheet Jasvir León MD Work Phone: [facility] Start: 05-08-2024 End: 05-08-2024 Transitional care manage srvc 14 day discharge Jasvir León MD Work Phone: [facility] Comment on above: Closed fracture of m ultiple ribs of right side with routine healing, subsequent encounter (Primary Dx); Nonrheumatic aortic valve stenosis; Spinal stenosis at L4-L5 level Start: 05-08-2024 End: 05-08-2024 ambulatory JASVIR LEÓN Not Available Start: 04-29-2024 End: 04-29-2024 Telephone encounter Rosina GREER Work Phone: [facility] Start: 04-25-2024 End: 04-25-2024 Evaluation and management of inpatient II Jasvir León Work Phone: [facility] Work Phone: Start: 02-18-2024 End: 02-18-2024 ambulatory JASVIR LEÓN Not Available Start: 01-07-2024 End: 01-07-2024 ambulatory [facility] Start: 12-26-2023 End: 12-26-2023 ambulatory JASVIR LEÓN Not Available Start: 12-07-2023 End: 12-07[facility] Start: 10-09-2023 End: 10-09-2023 ambulatory SARAH RODRIGUEZ Not Available Start: 08-07-2023 End: 08-07-[address] [facility] Start: 08-07-2023 End: 08-07-2023 Subsequent hospital visit by physician Kd Hines MD Work Phone: [facility] Start: 08-02-2023 End: 08-02-2023 ambulatory JASVIR LEÓN Not Available Start: 07-30-2023 End: 07-30-2023 ambulatory DAWOOD ALEXANDRE Not Available Start: 06-28-2023 End: 06-28-2023 ambulatory ODALYS RUSSO Not Available Start: 05-29-2023 End: 05-29-2023 ambulatory [facility] Start: 05-23-2023 End: 05-23-2023 ambulatory JASVIR LEÓN Not Available Start: 05-09-[address] [facility] Start: 05-09-2023 End: 05-09-[address] [facility] Start: 12-06-2022 ambulatory BRENT ZAIDI Facility :[facility] Start: 11-13-2022 End: 11-15-2022 Evaluation and management of inpatient DR JASVIR LEÓN Facility:[facility] Start: 10-18-2022 End: 10-19-2022 ambulatory BRENT ZAIDI Facility:[facility] Start: 10-06-2022 End: 10-08-[address] [...] Encounter for preprocedural laboratory examination GRETTA OMALLEY [facility] Start: 12-20-2021 End: 12-21-2021 ambulatory GRETTA OMALLEY Facility:[facility] Start: 12-16-2021 End: 12-17-2021 ambulatory GRETTA OMALLEY Facility:[facility] Start: 12-16-2021 End: 12-17-2021 Encounter for preprocedural laboratory examination GRETTA OMALLEY Facility:[facility] Start: 06-06-2021 End: 06-06-2021 ambulatory Mariam Ward Other [employer] Other Start: 06-06-2021 Office outpatient vi sit 15 minutes Mariam Ward [facility] [place] Procedures Date Procedure Procedure Detail Performing Clinician Start: 04-25-2024 CT angiography of thorax II Jasvir León Work Phone: Start: 11-21-2022 Laboratory test resu lt abnormal Abnormal laboratory test Rosina GREER Work Phone: Plan of Treatment Date Care Activity Detail Author Start: 07-30-2025 Glaucoma screening Diabetes: R etinopathy Screening [facility] Start: 11-19-2024 End: 11-19-2024 Patient encounter procedure 11/19/2024 11:00 AM EDT Office Visit [facility] [address] [place] [id number] Ariel Foss MD [address] [place] [address] [facility] Start: 08-02-2024 Urine screening for protein Diabetes: Urine Protein Screening [facility] Start: 06-09-2024 End: 06-09-2024 Patient encounter procedure 06/09/2024 11:30 AM EST Office Visit [facility] [address] [place] [address] Jasvir León MD [address] [facility] [address] [place] [address] [facility] Start: 05-19-2024 End: 05-19-2024 Patient encounter procedure 05/19/2024 10:45 AM EST Office Visit [facility] [address] [place] [address] Jasvir León MD [address] [place] [address] [facility] Start: 05-08-2024 End: 05-08-2024 Patient encounter procedure [facility] Comment on above: Arrived Start: 04-25-2024 [facility] Start: 04-25-2024 Radionuclide myocard ial perfusion stress study NM lissy perf SPECT rest & str [facility] Start: 04-25-2024 Catheterization of l eft heart CL *Left Heart Cath (LHC) [facility] Start: 04-25-2024 Hospital admission [facility] Start: 03-27-2024 Hemoglobin A1c measurement Diabetes: Hemoglobin A1C [facility] Start: 08-07-2023 End: 08-07-2023 Njx dx/ther agt pvrt facet jt lmbr/sac 1 level LUMBAR MEDIAL BRANCH BLOCK Lumbar spondylosis 08/07/2023 10:37 AM [facility] Start: 08-07-2023 End: 08-07-2023 Njx dx/ther agt pvrt facet jt lmbr/sac 2nd level LUMBAR MEDIAL BRANCH BLOCK Lumbar spondylosis 08/07/2023 10:37 AM [facility] Start: 06-04-2023 Annual Wellness Visi t (Medicare) Annual Wellness Visit (Medicare) [facility] Start: 1999 Respiratory Syncytia l Virus (RSV) or age 60 yrs+ (1 - 1-dose 60+ series) Respiratory Syncytial Virus (RSV) or age 60 yrs+ (1 - 1-dose 60+ series) [facility] Start: 1958 DTaP/Tdap/Td vaccine (1 - Tdap) DTaP/Tdap/Td vaccine (1 - Tdap) [facility] Start: 1951 Depression Screen Depression Screen [facility] Start: [address] [facility] Oxygen therapy [[facility] Data Set] Initiate Oxygen Therapy Protocol Respiratory Care Routine As Needed until discontinued starting 08/07/2023 [facility] Work Phone: Comment on above: As Needed until disc ontinued starting 08/07/2023 Patient referral [facility] Work Phone: Immunizations Immunization Date Immunization Notes Care Provider Chris green 09-11-2023 zoster vaccine recombinant Rosina GREER Work Phone: [facility] 06-06-2023 zoster vaccine recombinant Rosina GREER Work Phone: [facility] 05-21-2023 Pfizer Coleman Cap SARS-CoV-2 Vaccination Rosina Hemmer PA Work Phone: [facility] Work Phone: 05-13-2023 Influenza, Seasonal, Quadrivalent, Adjuvanted Rosina Hemmer PA Work Phone: [facility] 05-16-2021 SARS-CoV-2, Unspecified Zoie n Hemmer PA Work Phone: [facility] 04-29-2021 influenza, high dose seasonal, preservative-free Rosina Hemmer PA Work Phone: [facility] 04-29-2021 Influenza, Seasonal, Quadrivalent, Adjuvanted Rosina Hemmer PA Work Phone: [facility] 08-29-2020 SARS-CoV-2, Unspecified Zoie n Hemmer PA Work Phone: [facility] 07-31-2020 SARS-CoV-2, Unspecified Zoie n Hemmer PA Work Phone: [facility] 03-22-2020 influenza, injectabl e, quadrivalent, preservative free Rosina Hemmer PA Work Phone: [facility] 06-12-2019 zoster vaccine recombinant Rosina Hemmer PA Work Phone: [facility] 03-20-2019 Seasonal trivalent influenza vaccine, adjuvanted, preservative free Rosina Hemmer PA Work Phone: [facility] 03-20-2019 zoster vaccine recombinant Rosina Hemmer PA Work Phone: [facility] 04-22-2018 influenza, high dose seasonal, preservative-free Rosina Hemmer PA Work Phone: [facility] 03-29-2017 influenza, high dose seasonal, preservative-free Rosina Hemmer PA Work Phone: [facility] 08-26-2016 pneumococcal conjuga te vaccine, 13 valent Rosina Hemmer PA Work Phone: [facility] 03-30-2016 influenza, injectabl e, quadrivalent, contains preservative Rosina Hemmer PA Work Phone: [facility] 03-30-2016 influenza, injectabl e, quadrivalent, preservative free Rosina GREER Work Phone: [facility] 03-25-2015 pneumococcal polysaccharide vaccine, 23 valent Rosina GREER Work Phone: [facility] 03-25-2015 seasonal influenza, intradermal, preservative free Rosina GREER Work Phone: [facility] 04-02-2014 seasonal influenza, intradermal, preservative free Rosina GREER Work Phone: [facility] 03-31-2014 tetanus and diphther ia toxoids, adsorbed, preservative free, for adult use (5 Lf of tetanus toxoid and 2 Lf of diphtheria toxoid) II Jasvir León Work Phone: [facility] 03-31-2014 tetanus toxoid, redu seymour diphtheria toxoid, and acellular pertussis vaccine, adsorbed Mariam Ginty Other [facility] [employer] Other 09-01-2013 tetanus and diphther ia toxoids, adsorbed, preservative free, for adult use (5 Lf of tetanus toxoid and 2 Lf of diphtheria toxoid) II Jasvir eLón Work Phone: [facility] 09-01-2013 tetanus toxoid, redu seymour diphtheria toxoid, and acellular pertussis vaccine, adsorbed Mariam Ginty Other [facility] [employer] Other 03-25-2012 zoster vaccine, live Rosina GREER Work Phone: [facility] 04-26-2010 pneumococcal polysaccharide vaccine, 23 valent Rosina GREER Work Phone: [facility] Center Payers Date Payer Category Payer Self-pay 2022 [employer] [id number] 2016 [employer] [id number] 2016 () [id number] 2016 [employer] [place]) [id number] 2004 Medicare MEDICARE [id number] 1959 [employer] ( [employer] others) [id number] 1959 Medicare [id number] 1939 Unknown [id number] 2.16.840.1.644583.3.579.2 .647 1939 Unknown [id number] 2.16.840.1.624002.3.579.2 .593 1939 Unknown [id number] 2.16.840.1.834784.3.579.2 .593 1939 Unknown [id number] 2.16.840.1.608634.3.579.2 .593 1939 Unknown [id number] 2.16.840.1.750627.3.579.2 .593 1939 Unknown [id number] 2.16.840.1.174705.3.579.2 .593 1939 Unknown [id number] 2.16.840.1.664431.3.579.2 .593 1939 Unknown [id number] 2.16.840.1.000449.3.579.2 .593 1939 Unknown [id number] 2.16.840.1.977305.3.579.2 .593 1939 Unknown [id number] 2.16.840.1.088837.3.579.2 .593 1939 Unknown [id number] 2.16.840.1.368587.3.579.2 .593 1939 Unknown [id number] 2.16.840.1.590299.3.579.2 .593 1939 Unknown [id number] 2.16.840.1.964891.3.579.2 .593 1939 Unknown [id number] 2.16.840.1.788473.3.579.2 .593 1939 Unknown [id number] 2..840.1.083050.3.579.2 .593 1939 Unknown [id number] 2.16.840.1.982528.3.579.2 .754 1939 Unknown [id number] 2..840.1.662137.3.579.2 .754 1939 Unknown [id number] 2.16.840.1.882341.3.579.2 .754 1939 Unknown [id number] 2.16.840.1.002366.3.579.2 .754 1939 Unknown [id number] 2.16.840.1.226543.3.579.2 .1259 1939 Unknown [id number] 2.16.840.1.797824.3.579.2 .1259 1939 Unknown [id number] 2.16.840.1.651669.3.579.2 .1259 1939 Unknown [id number] 2.16.840.1.474108.3.579.2 .1259 1939 Unknown [id number] 2.16.840.1.496173.3.579.2 .125 1939 Unknown [id number] 2.16.840.1.078370.3.579.2 .1259 1939 Unknown [id number] 2.16.840.1.114806.3.579.2 .125 1939 Unknown [id number] 2.16.840.1.813464.3.579.2 .1258 Medicare [id number] 2.16.840.1.364647.19 Unknown [id number] 2.16.840.1.289716.3.579.2 .531 Social History Date Type Detail Facility Start: 04-11-2023 End: 05-30-2023 Sex Assigned At [facility] [employer] Other Start: 12-11-2022 End: 05-08-2023 Tobacco smoking status [facility] Ex-smoker [employer] Phone: End: 07-09-1996 History of tobacco use Current smoker [employer] Phone: End: 07-09-1996 History of tobacco use Cigarette Smoker [employer] Phone: Start: 12-11-2022 End: 05-08-2023 Tobacco use and exposure Smokeless tobacco non-user [employer] Phone: Start: 05-30-2023 Alcohol intake Ex-drinker (finding) [employer] Phone: Start: 04-11-2023 End: 05-30-2023 History of Social function [employer] Phone: Start: 05-08-2023 Alcohol Comment social [employer] Work Phone: Start: 1940 Sex Assigned At Not on file [facility] Work Phone: Start: 1940 Sex Assigned At Female F [facility] Start: 04-28-2024 End: 05-08-2024 Alcoholic beverage intake Current drinker of alcohol (finding) [facility] Start: 04-11-2023 Alcohol Comment 1-2 drinks 2-4 times a month,,caffeine intake: 2-3 cups per day [facility] Medical Equipment Procedure Code Equipment Code Equipment Origin al Text Equipment Identifier Dates [employer] [id number] Start: 05-09-2023 Comment on above: Description: T12 Ref# [id number] by In Vitro route [id number] 1 each by Other route in the morning and 1 each in the evening and 1 each before bedtime. Use as instructed. [id number] Start: 06-29-2023 End: 06-28-2024 Goals Date Patient Goal Desired Activity /State Clinical Notes 06-06-2021 to 05-13-2024 Jasvir León MD - 05/08/2024 11:15 AM EDTTelephone Encounter - ZOEY An - 04/29/2024 4:55 PM EDTTelephone Encounter - ZOEY An - 04/29/2024 4:55 PM EDT Note Date & Type Note Facility 05-13-2024 Note Cardiovascular Medic [facility] SUBJECTIVE Chief Complaint Patient presents with Valve Disorder Congestive Heart Failure Jenni Quinones is a 84 y.o. female here for follow-up. 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 [facility] She underwent a stress test that was negative. Since her hospital stay, she has had no further complaints of chest pain. She does have GARZA with minimal exertion. She has dizziness/LH with standing. She has occasional orthopnea. Denies c/o PND, LE edema, palpitations, syncope. 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 Mixed anxiety [...] Controlled diabetes mellitus type II without complication ([facility]) Atrial flutter ([facility]/HCC) Benign essential hypertension Pulmonary hypertension ([facility]) Nontoxic single thyroid nodule Unsteadiness on feet Primary osteoarthritis of right foot Inflammation of foot joint Generalized osteoarthritis Diabetic mononeuropathy (CMS/HCC) Arthritis of ankle, right Anxiety Compression fracture of T12 vertebra (CMS/HCC) Pathological fracture of vertebra Peripheral angiopathy due to type 2 diabetes mellitus (CMS/HCC) Bilateral posterior capsular opacification Dry eyes Lumbar radiculitis Chronic right-sided heart failure (CMS/HCC) Acute electrocardiogram changes Chest pain Fracture of rib of left side Lumbar spondylosis Past Medical History: Diagnosis Date Abnormal ECG Anemia Aortic valve disorder 04/20/2016 aortic valve replacement with a 23 mm trifecta tissue valve: 2016 Arrhythmia Atrial fibrillation (CMS/HCC) Bradycardia CHF (congestive heart failure) ([facility]) Heart valve disease Hyperlipidemia Hypertension Sleep apnea Family History Problem Relation Name Age of Onset Diabetes Father Heart failure Father Other (neoplastic disease) Other Social History Tobacco Use Smoking status: Former Types: Cigarettes Smokeless tobacco: Never Substance Use Topics Alcohol use: Not Currently Drug use: Never Allergies Allergen Reactions Codeine Entresto [Sacubitril-Valsartan] Penicillins Other ROS HENT: Positive for hearing loss. Cardiovascular: Positive for dyspnea on exertion and palpitations. Respiratory: Positive for shortness of breath. Hematologic/Lymphatic: Bruises/bleeds easily. Musculoskeletal: Positive for arthritis, back pain and muscle weakness. Neurological: Positive for focal weakness, light-headedness, loss of balance, numbness and weakness. All other systems reviewed and are negative. OBJECTIVE Visit Vitals BP 126/70 (BP Location: Right arm, Patient Position: Sitting) Pulse 65 Ht 1.575 m (5' 2 ) Wt 65.8 kg (145 lb) SpO2 95% Comment: on 2.5L O2 BMI 26.52 kg/m??? OB Status Postmenopausal Smoking Status Former BSA 1.7 m??? Medications: Current Outpatient Medications: aspirin 81 mg EC tablet, Take 81 mg by mouth in the morning., Disp: , Rfl: atorvastatin (Lipitor) 20 mg tablet, Take 1 tablet by mouth at bedtime., Disp: , Rfl: buPROPion SR (Wellbutrin SR) 150 mg 12 hr tablet, Take 1 tablet by mouth in the morning and at bedtime., Disp: , Rfl: carvedilol (Coreg) 12.5 mg tablet, Take 1 tablet (12.5 mg) by mouth with breakfast and with evening meal. (Patient taking differently: Take 6.25 mg by mouth with breakfast and with evening meal.), Disp: 60 tablet, Rfl: 0 (more content not included)... [facility] 05-13-2024 Note Patient here for 3 m o follow up aortic/mitral valve stenosis, diastolic heart failure, and permanent afib. She was admitted to [facility] a few weeks ago for chest pain. Outpatient echo was done last week. She is now on supplemental oxygen at all times. She states chest pain has resolved. Review of Systems HENT: Positive for hearing loss. Cardiovascular: Positive for dyspnea on exertion and palpitations. Respiratory: Positive for shortness of breath. Hematologic/Lymphatic: Bruises/bleeds easily. Musculoskeletal: Positive for arthritis, back pain and muscle weakness. Neurological: Positive for focal weakness, light-headedness, loss of balance, numbness and weakness. All other systems reviewed and are negative. [facility] 05-08-2024 History of Present illness Narrative Images from the original note were not included. HPI Follow-up Additional comments: [facility] stay 04/11/24-04/13/24 after fall at home with rib fractures discharged to [facility] 04/24/24-04/25/24 dx: CP Discharged home from [place] 04/30/24 Shortness of Breath Additional comments: Had echo yesterday ordered by cardiology has appt with cardiology next week Using 02 continuously Med Refill Additional comments: Hydrocodone--DM moi Last edited by Bev Mejia LPN on 05/08/2024 11:24 AM. Subjective Patient ID: Jenni Quinones is a 84 y.o. female who presents for Follow-up ([facility] stay 04/11/24-04/13/24 after fall at home with rib fractures [facility] 04/24/24-04/25/24 dx: CP/Discharged home from [place] 04/30/24), Shortness of Breath (Had echo yesterday ordered by cardiology has appt with cardiology next week/Using 02 continuously ), and Med Refill (Hydrocodone--DM mio). Flowsheet Row Patient Outreach from 04/30/2024 in [facility] with Monica Ross LPN Hospital Information ED, Hospital or Group Home Facility Discharge? Group Home Facility Discharged To: Home Setting Engagement Medications Discharge medications reviewed and reconciled from hospital? Yes Is the patient having any side effects they believe may be caused by any medication additions or changes? No Does the patient have all medications ordered at discharge? Yes Appointments Does the patient have a primary care provider? Yes Nursing Interventions Verified appointment date/time/provider Self Management What is the home health agency? [facility] HOME HEALTH NURSE/PT/OT Has home health visited the patient within 72 hours of discharge? Yes Patient Teaching Wrap Up Call End Time 1207 Pt states she has been weak since hospital discharge Has home health Pain is much better from rib fractures Shortness of Breath Med Refill Current Outpatient Medications on File Prior to Visit Medication Sig Dispense Refill acetaminophen (Tylenol) 325 MG tablet Take 325 mg by mouth every 6 (six) hours if needed. ALPRAZolam (Xanax) 0.25 MG tablet Take 1 tablet (0.25 mg) by mouth every 6 (six) hours if needed for anxiety 60 tablet 0 amLODIPine (Norvasc) 5 MG tablet Take 5 mg by mouth in the morning. ammonium lactate (Lac-Hydrin) 12 % lotion Apply 1 application topically if needed. atorvastatin (Lipitor) 20 MG tablet Take 1 tablet (20 mg) by mouth at bedtime. 100 tablet 3 buPROPion SR (Wellbutrin SR) 150 MG 12 hr tablet Take 1 tablet (150 mg) by mouth in the morning and 1 tablet (150 mg) before bedtime. 200 tablet 3 Calcium Carb-Cholecalciferol 600-200 MG-UNIT tablet Take by mouth 1 (one) time each day at the same time. carvedilol (Coreg) 12.5 MG tablet Take 1 tablet (12.5 mg) by mouth in the morning and 1 tablet (12.5 mg) in the evening. Take with meals. 180 tablet 2 clotrimazole (Mycelex) 10 MG erinn Take 10 mg by mouth every 8 (eight) hours. colchicine 0.6 MG tablet Take 1 tablet (0.6 mg) by mouth Daily 30 tablet 1 digoxin (Lanoxin) 125 MCG tablet take 1 tablet by mouth once daily 90 tablet 2 empagliflozin (Jardiance) 10 MG Take 1 tablet (10 mg) by mouth Daily 30 tablet 11 escitalopram (Lexapro) 10 MG tablet Take 1 tablet (10 mg) by mouth Daily 90 tablet 2 gabapentin (Neurontin) 100 MG capsule Take 1 capsule (100 mg) by mouth in the morning and 1 capsule (100 mg) in the evening and 1 capsule (100 mg) before bedtime. 270 capsule 3 glucose blood test strip 1 each by Other route in the morning and 1 each in the evening and 1 each before bedtime. Use as instructed. 100 each 11 insulin lispro protamine-insulin lispro (HumaLOG Mix 75-25) (75-25) 100 UNIT/ML injection Inject 10 Units under the skin in the morning and 10 Units in the evening. Inject with meals. 6 mL 11 levothyroxine (Synthroid, Levoxyl) 50 MCG tablet Take 1 tablet by mouth in the morning. Take before meals. lisinopril 20 MG tablet Take 20 mg by mouth in the morning. omeprazole (PriLOSEC) [address] capsule TAKE 1 CAPSULE BY MOUTH DAILY 100 capsule 3 rOPINIRole (Requip) 0.25 MG tablet take 1 tablet by mouth once daily 1 to 3 hours BEFORE BEDTIME 100 tablet 3 spironolactone (Aldactone) 25 MG tablet Take 1 tablet (25 mg) by mouth in the morning. 90 tablet 2 torsemide (Demadex) 20 MG tablet take 1 tablet by mouth once daily 100 tablet 3 tiZANidine (Zanaflex) 4 MG tablet Take 1 tablet (4 mg) by mouth every 8 (eight) hours if needed for muscle spasms. 30 tablet 3 [DISCONTINUED] HYDROcodone-acetaminophen ([place]) 5-325 MG tablet Take 1 tablet by mouth every 4 (four) hours if needed for severe pain for up to 10 days 60 tablet 0 No current facility-administered medications on file prior to visit. I have reviewed and reconciled the history and medication list with the patient today. Allergies Allergen Reactions Codeine Other Reaction(s): Upset Stomach Penicillin G Rash and Other Sacubitril-Valsartan Rash Social History Tobacco Use Smoking status: Former Types: Cigarettes Smokeless tobacco: Never Substance Use Topics Alcohol use: Yes Comment: 1-2 drinks 2-4 times a month,,caffeine intake: 2-3 cups per day Drug use: Not Currently Comment: Has not used any drugs other than those for medical reasons for the past 12 months Family History Problem Relation Name Age of Onset Heart failure Mother Heart disease Mother Diabetes Father Heart disease Father Past Medical History: Diagnosis Date Abnormal echocardiogram 09/06/2020 Asthma ([facility]) Atrial flutter ([facility]) CHF (congestive heart failure) ([facility]) Diabetes ([facility]/HCC) Diverticulosis Enthesopathy of left foot 02/2016 Enthesopathic spurring of calcaneous of left foot per xray Feb 2016 History of being hospitalized 04/25/2024 Chest Pain, ECG Changes HTN (hypertension) (CMS/HCC) Hyperlipidemia ([facility]) Routine general medical examination at health care facility Sleep apnea Past Surgical History: Procedure Laterality Date AORTIC VALVE REPLACEMENT 04/2016 and MAZE procedure BLADDER SUSPENSION BUNIONECTOMY Left CARDIAC CATHETERIZATION CARDIAC CATHETERIZATION 2010 CATARACT EXTRACTION Bilateral 2021 Dr. Alexandre CHOLECYSTECTOMY COLONOSCOPY 2012 CT ANGIOGRAM ABDOMEN PELVIS 08/19/2018 CT ANGIOGRAM ABDOMEN PELVIS DEXA SCAN 2007 DEXA SCAN 2014 HYSTERECTOMY IR INJECTION NERVE BLOCK Bilateral 08/07/2023 L3-L5 LUMBAR EPIDURAL INJECTION 05/29/2023 L4-L5 OH ARTHROSCOPY KNEE DIAGNOSTIC W/WO SYNOVIAL BX SPX Left OH INTUBATION ENDOTRACHEAL EMERGENCY PROCEDURE 08/18/2018 OH MEDICATION MANAGEMENT Aortic insufficiency RIGHT HEART CATHETERIZATION Right 12/20/2021 SINUS SURGERY Right Visit Vitals BP 128/70 Pulse 58 Ht 5' 1 Wt 147 lb SpO2 96% BMI 27.78 kg/m Smoking Status Former BSA 1.69 m Review of Systems Respiratory: Positive for shortness of breath. Objective Physical Exam Constitutional: General: She is not in acute distress. Appearance: Normal appearance. She is well-developed. HENT: Head: Normocephalic and atraumatic. Eyes: General: No scleral icterus. Conjunctiva/sclera: Conjunctivae normal. Cardiovascular: Rate and Rhythm: Normal rate. Rhythm irregular. Heart sounds: Murmur heard. Pulmonary: Effort: Pulmonary effort is normal. No respiratory distress. Breath sounds: Normal breath sounds. No wheezing, rhonchi or rales. Musculoskeletal: Lumbar back: Spasms and tenderness present. Scoliosis present. Right lower leg: No edema. Left lower leg: No edema. Skin: General: Skin is warm and dry. Neurological: General: No focal deficit present. Mental Status: She is alert and oriented to person, place, and time. Psychiatric: Mood and Affect: Mood normal. Behavior: Behavior normal. Assessment/Plan Diagnoses and all orders for this visit: Closed fracture of multiple ribs of right side with routine healing, subsequent encounter - The patient was seen today in follow up of recent hospital stay. All available hospital records were reviewed and discussed with the patient. Hospital discharge meds were reviewed. Any changes are noted above. Nonrheumatic aortic valve stenosis - Severe by Echo. Will see Cardiology tomorrow. Spinal stenosis at L4-L5 level - HYDROcodone-acetaminophen ([place]) 5-325 MG tablet; Take 1 tablet by mouth every 4 (four) hours if needed for severe pain for up to 10 days Follow up in about 4 weeks (around 06/05/2024) for Routine F/U. documented in this encounter [facility] 04-29-2024 Telephone encounter Note [facility] [place] requesting clarification on dispense amount for insulin. Resent with correct amount to dispense. [facility] 10-22-2024 Miscellaneous Notes [facility] [place] requesting clarification on dispense amount for insulin. Resent with correct amount to dispense. documented in this encounter [facility] 04-25-2024 Consult note Note Date/Time April 25, 2024 12:10pm [facility] [address] [place] [address] Cardiology Consult Note Signed with Addenda Patient: Jenni Quinones MR#: [id number] : 1940 Acct:[id number] Age/Sex: 84 / F Adm Date: 4 Loc: Room: [address] [place] [address] Type: ADM IN Attending Dr: Javan Gruber [...] the hospitalist and ER nurse practitioner at [facility] after discussion last night. Patient was transferred here under my direction for further assessment and management. She was watching the [employer] baseball game, became very excited and experienced retrosternal chest discomfort that abated after arrival to the emergency room after being directed by her family togo to the ER for her discomfort. Initial ECGs revealed atrial fibrillation withnonspecific ST changes, initial troponin was negative. Patient has a history of chronic atrial fibrillation, aortic valve replacement in [place], followed by Dr. Nova. 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 [facility] Medical History (Updated 04/25/24 @ 04:15 by [...] Lymph # (Auto) 0.7 L (1.00-4.8) x10E3/uL [place] # (Auto) 0.8 (0.0-0.8) x10E3/uL Eos # [...] <Electronically signed by Ingrid Haynes DO> 04/25/24 1200 [facility] Work Phone: 1(366) 275-901610-18-2024 History and physical note Author Lalo Carter [facility] April 25, 2024 4:19am Note Date/Time April 25, 2024 4 :10am [facility] [address] [place] [address] Hospitalist H&P Signed Patient: Jenni Quinones MR#: [id number] : 1940 Acct:[id number] Age/Sex: 84 / F Adm Date: 4 Loc: Room: [address] [place] [address] Type: ADM IN Attending Dr: Lalo Carter DO Copies to: MD Lalo Padilla II, ~ HPI DATE OF EXAMINATION: 04/25/24 CHIEF COMPLAINT: Chest pain with radiation to the jaw and shortness of breath and EKG change HISTORY OF PRESENT ILLNESS: This is an 84-year-old woman who presented to the [facility] emergency room. The ER over there had gotten a hold of cardiology on-call with Dr. Haynes regarding EKG changes especially in aVL with inferior depression pattern and so it was recommended that the patient be transferred here to [facility] for cardiology evaluation. The patient is currently in a longterm facility working with physical therapy and getting [...] of this lasted 20 minutes. At the [facility] emergency room a chest x-ray showed what [...] cardiology with Dr. Josefina Nova from the [facility], to [place]. 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 She has been told that there is something just not quite right about that aortic valve, but she cannot explain what the grounds maintenance supervisor were looking at. When I asked her if she got cardiac catheterization and planning for the aortic valve replacement the patient does not recall getting this. Review of Systems Review of Systems Review of systems: 10 systems are reviewed and are negative except as mentioned elsewhere in the documentation. [facility] Medical History (Updated 04/25/24 @ 04:15 by [...] diabetes mellitus: Plan Assessment: Presentation to the [facility] with chest pain with radiation to the [...] a fall on April 11 at a longterm facility in [place]. Plan: Hospital admission, inpatient status. N.p.o. for [...] signed by Lalo Carter DO> 04/25/24 0419 [facility] Work Phone: 1(887) 810-408307-01-2024 NoteUT Cardiology - [facility] Subjective Jennierick Quinones is a 83 y.o. 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 [...] of Systems Constitutional: P (more content not included)...[facility]05-31-2024 NoteRecently admitted overnight at [facility] for Acute HFrEF and palpitations Coreg was [...] function and electrolytes and she voiced understanding. [facility] II-III Pt is close to euvolemia [facility] Noteaortic valve replacement with a 23 mm trifecta tissue valve: 2015 Elevated doppler flows noted and severe AO stenosis- will repeat TTE a 6 months to re-evalaute. RTC with Dr Nova D/W pt about red flag symptoms to call 911 and/or office- increased SOB, Palpitations, syncope, chest pain or any concerns and she voiced understanding [facility] 12-[facility]-2023 NoteRepeat TTE in 6 months Pt denied any worsening symptoms since DC [facility] and diuresisUn[facility]05-31-2024 NoteStable, will monitor with routine echocardiogram in 6 monthsUnUniversity Hospitals Health System05-31-2024 NoteUTP CARDIOLOGY PROGRESS NOTE HPI: Jenni Quinones is a 83 y.o. female here for routine f/U and review of TTE and ED f/U Patient here for 6 mo follow up aortic and mitral valve stenosis, diastolic heart failure, and permanent afib. She had an echo last month. She presented to [facility] ED a few weeks ago for palpitations. [...] She has history of prior admissions to [facility] with AF/RVR and diastolic heart failure decompensation. She has normal coronary angiogram in 2016. Patient here for 6 mo follow up aortic and mitral valve stenosis, diastolic heart failure, and permanent afib. She had an echo last month. She presented to [facility] ED a few weeks ago for palpitations. [...] initiated. Patient agrees this plan. Emergency Department [id number] [facility] Patient name: JENNI QUINONES Laboratory reviewed and [...] has new requirement of 2L O2 by MA. Case discussed with hospitalist who agreed to [...] are negative Previous HPI per Dr Nova HPI Jenni is seen in follow-up. She [...] She has history of prior admissions to [facility] with AF/RVR and diastolic heart failure decompensation. [...] flows across the biop (more content not included)...[facility]05-31-2024 NotePatient here for 6 mo follow up aortic and mitral valve stenosis, diastolic heart failure, and permanent afib. She had an echo last month. She presented to [facility] ED a few weeks ago for palpitations. [...] weakness. All other systems reviewed and are negative.[facility] 12-07-2023 NoteContinue to monitor AO valve with repeat TTE in [address] [facility]01-30-2024 History of Present illness Narrative* Carole Loyola LPN - 08/07/2023 10:57 AM EST Pt alert and oriented. Denies pain at this time. Dressings at injection site clean and dry. Discharge instructions reviewed, no questions or concerns voiced. documented in this encounterWYANDOT Work Phone: [phone] Hospital Discharge instructions* Discharge Instructions* MillaAliciaCaroleangy Partida LPN - 08/06/2023 3:[address] [...] vomiting - Difficulty breathing or swallowing CALL [phone] Other Instructions: - You should have a follow-up appointment scheduled already or a follow-up plan in place prior to leaving. - Call the office if you develop any problems or have any questions at: [facility] [phone] or Our 24 hour help line is also available: [phone] ([phone]) If you need refills,or have questions / concerns, outside of our office hours Sunday 8:00 a.m - 4:30 p.m. at [facility], please call [phone] to speak to Constance STEINER or leave a voicemail for her. *Remember to allow at least 48 business hours for medication refill requests. documented in this encounterWKEVIN Work Phone: 1(438) 503-261412-01-2022 NoteHISTORY AND PHYSICAL EXAMINATION Date:06/07/2022 HISTORY: The [...] and go forward with her elective procedure.[id number] NoteOPERATIVE NOTE OPERATION DATE: 06/08/2022 SURGEON: Dawood [...] ensuring mobility, phacoemulsification was performed in a vtnecrg-vsz-ijpfir-type fashion. After all nuclear material had been [...] up the following day for postoperative care.[facility] [id number] NoteOPERATIVE NOTE OPERATION DATE: 04/13/2022 SURGEON: Dawood [...] ensuring mobility, phacoemulsification was performed in a rjsqmlg-ief-pibnem-type fashion. After all nuclear material had been [...] up the following day for postoperative care.[facility] [id number] NoteHISTORY AND PHYSICAL EXAMINATION Date:04/12/2022 HISTORY: The [...] and go forward with her elective procedure.[facility] [id number] Evaluation note* Encounter Date Diagnosis Assessment Notes [...] Patient care instructions given in writting by [facility] Care At Home document [place] Other Evaluation note* Diagnosis Lumbar spondylosis- Primary Lumbosacral spondylosis without myelopathy documented in this encounter [facility] Work Phone: evaluation note* Diagnosis Onset Date Resolution Status Acute electrocardiogram changes acute Chest pain acute Fracture of rib of left side acute GERD (gastroesophageal reflux disease) acute Hypertension acute Type 2 diabetes mellitus acu [facility] Work Phone: Evaluation note* Diagnosis Diabetes mellitus with peripheral vascular disease ([facility]/HCC) [facility] Diagnosis Closed fracture of multiple ribs of right side with routine healing, subsequent encounter- Primary Nonrheumatic aortic valve stenosis Spinal stenosis at L4-L5 level documented in this encounter [facility] HealthcareHistory general [...] see above list Hospitalization History chf x3 [place] Other Hospital Discharge instructions Additional Instructions jail facility to manage care: DNR [facility] no intubation PT/OT to eval and treat Routine vital signs Maintain high risk falls precautions Monitor cardio assessment -- angina Care to be managed by SNF provider [facility] Work Phone: Summary Purpose Family History [...] AUTHOR 08/19/2021 [facility] dical Specialist DATE CREATED AUTHOR AUTHOR'S ORGANIZ ATION 12/26/2021 [facility] DATE CREATED AUTHOR AUTHOR'S ORGANIZ ATION 12/15/2022 [facility] DATE CREATED AUTHOR AUTHOR'S ORGANIZ ATION 05/18/2023 [facility] DATE CREATED AUTHOR AUTHOR'S ORGANIZ ATION 08/08/2023 [facility] DATE CREATED AUTHOR AUTHOR'S ORGANIZ ATION 05/03/2024 [facility] DATE CREATED AUTHOR AUTHOR'S ORGANIZ ATION 05/10/2024 [facility] dical Specialists EPIC DATE CREATED AUTHOR AUTHOR'S ORGANIZ ATION 05/25/2024 [facility] REASON FOR VISIT (unrecogniz ed section and content) Specialty Diagnoses / Procedures Referred By Contac t Referred To Contact Diagnoses Lumbar spondylosis Lumbar spondylosis [M47.816] Procedures [place] NJX DX/THER AGT PVRT FACET JT LMBR/SAC 1 LEVEL [place] NJX DX/THER AGT PVRT FACET JT LMBR/SAC 2ND LEVEL B/L LUMBAR MEDIAL BRANCH BLOCK L3 L4 L5 B/L LUMBAR MEDIAL BRANCH BLOCK L3 L4 L5 Kd Hines MD [address] [place] [address] [place] Phone: [phone] Referral ID Status Reason Start Date Expiration Date Visits Re quested Visits Authorized [id number] 1 1 Reason Comments Follow-up [facility] stay 04/11/24-04/13/24 after fall at home with rib fractures discharged to [facility] 04/24/24-04/25/24 dx: CPDischarged home from [place] 04/30/24 Shortness of Breath Had echo yesterday o rdered by cardiology has appt with cardiology next week continuously Med Refill Hydrocodone--DM clyd e PRN Active and Recently Administ ered Medications [...] Care Teams (unrecognized sec tion and content) 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 Start Date End Date Jasvir León MD [address] [facility] [address] [place] [address] PCP - General Internal Medicine 05/07/23 Team Status: Active Member Role Status Dates Jasvir León II MD Primary Care Provider Active Team Status: Inactive Member Role Status Dates Jasvir León II MD Primary Care Provider Active Start: April 25, 2024 End: April 25, 2024 Lalo Briankimi , DO Admit Provider Active Start: April 25, 2024 End: April 25, 2024 Javan Gruber MD Attending Provider Active St art: April 25, 2024 End: April 25, 2024 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 Start Date End Date Jasvir León MD [address] [place] [address] PCP - General Internal Medicine 11/20/22 Jasvir León MD [address] [place] [address] PCP - ACO Reach 11/30/22 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 Start Date End Date Jasvir León MD [address] [place] [address] PCP - General Internal Medicine 11/20/22 Jasvir León MD [address] [place] [address] PCP - ACO Reach 11/30/22 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 Start Date End Date Jasvir León MD [address] [place] [address] PCP - General Internal Medicine 11/20/22 Jasvir León MD [address] [place] [address] PCP - ACO Reach 11/30/22 FOR RECORDS [...] BE BASED ON THE PRIMARY CLINICAL RECORDS. [facility] [employer] [facility]. provides no warranty or guarantee of the accuracy or completeness of information in this document.
[2024-05-26 12:32] LABS: Basophils Absolute Auto 0.1 10^3/uL (0.0-0.1); Basophils Percent Auto 0.7 % (0.2-2.0); Eosinophils Absolute Auto 0.3 10^3/uL (0.0-0.7); Eosinophils Percent Auto 2.4 % (0.9-7.0); Hematocrit 37.4 % (36.0-48.0); Hemoglobin 11.4 g/dL (12.0-16.0); Immature Granulocytes Abs Auto 0.03 10^3/uL (0.00-0.03); Immature Granulocytes Pct Auto 0.3 % (0.0-0.5); Lymphocytes Absolute Auto 0.8 10^3/uL (1.2-3.8); Lymphocytes Percent Auto 7.3 % (20.5-60.0); Mean Corpuscular HGB Conc 30.5 g/dL (29.9-35.2); Mean Corpuscular Hemoglobin 29.3 pg (26.7-34.0); Mean Corpuscular Volume 96.1 fL (81.0-99.0); Mean Platelet Volume 9.6 fL (9.5-13.5); Monocytes Absolute Auto 1.1 10^3/uL (0.3-0.8); Monocytes Percent Auto 10.3 % (1.7-12.0); Neutrophils Absolute Auto 8.4 10^3/uL (1.4-6.5); Platelet Count 273 10^3/uL (150-450); Red Blood Count 3.89 10^6/uL (4.20-5.40); White Blood Count 10.7 10^3/uL (4.0-11.0)
[2024-05-26 12:46] LABS: Anion Gap 11.9; BUN Creatinine Ratio 20.1; Calcium 9.4 mg/dL (8.5-10.1); Carbon Dioxide 34.2 mmol/L (21.0-32.0); Chloride 98 mmol/L (98-107); Estimated GFR (African America 31 (>=60 mL/min/1.73m^2); Estimated GFR (Non-African Ame 25 (>=60 mL/min/1.73m^2); Glucose 106 mg/dL (74-106); Potassium 4.1 mmol/L (3.5-5.1); Sodium 140 mmol/L (136-145)
== END 2024-05-26 12:14 | disposition home or self-care (01) ==
LOC: LAB 12:16
PROVIDERS: PCP Internal Medicine; Visit Provider Internal Medicine Interventional Cardiology
DX: I35.9 Nonrheumatic aortic valve disorder, unspecified (principal)
CPT/HCPCS: 36415; 80048; 85025

== ENCOUNTER 2024-06-02 11:41 | Outpatient (OUT) | payer MEDICARE, OTHER, SELFPAY ==
--- OUTSIDE RECORDS SUMMARY | 2024-06-02 12:00 | XMS_ITS | CCD ---
Author Organization [facility] Care Team Providers Care Public Administration Teacher Name Role Phone GRETTA OMALLEY Admitting Unavailable [...] LEÓN Referring Unavailable JASVIR LEÓN Attending Unavailable HOMA CHAVARRIA Referring Unavailable DERISO, CRAIG Attending Unavailable BRENT ZAIDI Attending Unavailable YRIS, FARZANEH Attending Unavailable MOUKARBJOSEFINA MCDUFFIE Admitting Unavailable MOUKARBEL, JOSEFINA Attending Unavailable MOUKARBEL, JOSEFINA Attending Unavailable MOUKARBEL, JOSEFINA Referring Unavailable MOUKARBEL, JOSEFINA Referring Unavailable HOMA CHAVARRIA Referring Unavailable CHAVARRIAHOMA Referring Unavailable Allergies Allergy Classification Reported Allergen(s) Allergy Type Date of Onset Reaction(s) Facility (5 sources) Codeine; Translations: [CODEINE] Drug Allergy 4 abdominal pain [facility] Repository (5 sources) Penicillins; Translations: [PENICILLINS] Drug allergy (disorder) 2 rash [facility] Repository (1 source) penicillian Propensity to adverse reactions rash [facility] [employer] Other (1 source) codiene Propensity to adverse reactions abdominal pain [facility] [employer] Other (2 sources) sacubitril / valsartan Drug Allergy 2 [facility] (5 sources) Codeine Drug Allergy 3 Other (See Comments) [place] (1 source) Penicillins Propensity to adverse reactions to drug 3 Sita MICHAELS Work Phone: (6 sources) sacubitril / valsartan; Translations: [SACUBITRIL-ARJUN SARTAN] Drug Allergy 2 Sita MICHAELS (4 sources) Penicillin G Drug Allergy 3 Rash, Other [facility] (1 source) Codeine Drug Allergy 4 [facility] Repository (1 source) Penicillins Drug allergy (disorder) 4 [facility] Repository Medications Current Medications Medication [...] mouth every four hours for pain HYDROcodone-acetaminophen ([place]) 5-325 MG tablet Indications: Spinal stenosis at [...] without perforation or abscess without bleeding] Onset: 05-16-2023 05-16-2023 Chronic Esophageal disorders (8 sources) Gastro-esophageal reflux [...] 11-21-2022 11-21-2022 Chronic Other aftercare (1 source) [facility] (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 of insulin; Translations: [SENIOR CARE CURRENT USE OF INSULIN] Onset: 11-21-2022 Episodic Other aftercare (1 source) [facility] (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 of aspirin; Translations: [SENIOR CARE CURRENT USE OF ASPIRIN] Onset: 11-21-2022 Episodic Other aftercare (1 source) Other care home (current) drug therapy; Translations: [OTH DEVELOPMENTAL THERAPIST CURRENT DRUG THERAPY] Onset: 11-21-2022 Episodic Other and ill-defined heart disease (4 sources) Diastolic dysfunction; Translations: [Other ill-defined heart diseases] Onset: 11-21-2022 11-21-2022 Chronic Other circulatory disease (2 sources) Other specified symptoms and signs involving the circulatory and respiratory systems; Translations: [Other specified symptoms and signs involving the circulatory and respiratory systems] Onset: 05-29-2024 Episodic Other eye disorders (1 source) Cataract [...] dyspnea; Translations: [Other forms of dyspnea] Onset: 05-15-2024 Episodic Other nervous system disorders (4 sources) [...] sources) Long-term current use of anticoagulant; 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] Onset: 8 04-10-2023 [...] Value Interpretation Reference Range Facility Orders Onlyon 05-30-2024 Orders Only [id number] Jenni Quinones 1940 F Date Provider Department Center 05/30/2024 Zohra-HOMA CHAVARRIA [facility] Family History Problem Relation Age of Onset Diabetes Father Heart failure Father Other Other Family Status - Relation Status Age at Father Other Normal [facility] CTA ABDOMEN PELVIS W IV CONT Frandy 05-29-2024 CTA ABDOMEN PELVIS W IV CONTRAST Clinical history: Scheduled aortic valve replacement Technique: CT angiography of the abdomen and pelvis was performed following the intravenous administration of contrast material. Multidetector CT angiogram performed through the abdomen and pelvis without complication, including source images and maximum intensity projection 3-D images displayed and reviewed on a PACS workstation by the radiologist. Automated exposure control was utilized. Comparison: None Findings: The abdominal aorta is normal in caliber throughout its course. There are diffuse atherosclerotic calcifications however no stenoses or aneurysms are identified. There is no evidence of aortic dissection. The visualized portions of the iliac and femoral vessels are patent. There is a stenosis of the origin of the celiac trunk. The superior mesenteric and inferior mesenteric arteries are patent. There is no evidence of renal artery stenosis. No abdominal or pelvic masses or adenopathy are seen. 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 * Diffuse atherotic calcifications throughout the abdominal aorta. No stenoses aneurysms or dissections are identified. All CT scans at this facility use dose modulation, iterative reconstruction, and/or weight based dosing when appropriate to reduce radiation dose to as low as reasonably achievable. Electronically signed: Meena Lopes. 9 Invalid Interpretation Code [facility] CTA CHEST W IV CONTRASTon CTA CHEST W IV CONTRAST Clinical history: Scheduled aortic valve replacement Technique: CT angiography of the thoracic aorta was performed following the intravenous administration of contrast material. Multidetector CT angiogram performed through the thoracic aorta without complication, including source images and maximum intensity projection 3-D images displayed and reviewed on a PACS workstation by the radiologist. Automated exposure control was utilized. Comparison: None Findings: Thoracic aorta is normal in caliber throughout its course. There are diffuse atherosclerotic calcifications throughout the thoracic aorta. No stenoses aneurysms or dissections are identified. The origins of the great vessels are widely patent. 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 There is a 4 cm rounded area of consolidation in the posterior aspect of the left lower lobe, only partially visualized on this examination. Neoplasm cannot be excluded and a CT thorax is recommended for further evaluation. There are scattered coronary artery calcifications. Several prominent mediastinal lymph nodes are seen with the largest in the region of the AP window measuring 1.2 cm in short axis. Left hilar adenopathy is also seen. Severe advanced emphysematous changes are seen throughout the visualized portions of both lung sher. Partial menstruation right basilar atelectasis and a small right-sided pleural effusion is seen. IMPRESSION: Impression: * Normal CT angiogram the thoracic aorta * A 4 cm rounded area of consolidation in the posterior aspect of the left lower lobe, only partially visualized in this examination. Neoplasm cannot be excluded and a CT thorax is recommended for further evaluation. * Mediastinal and left hilar adenopathy * Severe advanced emphysematous changes with a small right-sided pleural effusion and right basilar atelectasis. All CT scans at this facility use dose modulation, iterative reconstruction, and/or weight based dosing when appropriate to reduce radiation dose to as low as reasonably achievable. Electronically signed: Meena Lopes. 9 Invalid Interpretation Code [facility] Comment on above: Order Comment: Low d ose contrast (40 ml) Consulton 05-29-2024 Consult [id number] Jenni Quinones 1940 F Date Provider Department Center 05/29/202418371-PPPBZWCRAIG BRAUN HVCTS [facility] Family History Problem Relation Age of Onset Diabetes Father Heart failure Father Other Other Family Status - Relation Status Age at Father Other Level of Service:69570 [place] OFFICE/OP CONSLTJ NEW/EST PT HIGH MDM 55 MINUTES Reason for Visit and Comments: New Patient [632] - TAVR Normal [facility] HPon 05-27-2024 HP H&P reviewed. The pa tiecatalina was examined and there are no changes to the H&P. Will proceed with coronary angiogram for evaluation for coronary anatomy and severe aortic stenosis evaluation. Procedure was explained to patient at length and in detail. Risks, benefits, and alternatives were discussed. Patient is informed that risks of this invasive procedure include, but are not limited to, bleeding, hematoma, kidney injury, CVA, arrythmia requiring defibrillation, need for emergent open heart surgery, and . Patient understands these risks and wishes to proceed. Kisha Durand MD PGY-6 Chief Of Planning Normal [facility] HP ----- ----- Attestation signed by Pankaj Todd MD at 05/27/2024 11:30 AM I personally saw and examined the patient on the same date of service as resident/fellow Dr ospina. I discussed the findings and therapeutic plan with the resident/fellow Dr ospina. I agree with the documentation, except for any edits/updates below. Teaching Physician's Revisions: None Pankaj Todd MD, [facility] ----- H&P reviewed. The patient was examined and there are no changes to the H&P. The procedure was explained to the patient. The risks and benefits of the procedure were explained to the patient who showed understanding and with full capacity elected to proceed with the procedure. All questions were addressed and answered. Yanet Ospina MD Chief Of Planning - PGY6 [facility] NURSNOTEon 05-27-2024 NURSNOTE RN educated pt on d/ c instructions. This included: site care, limited physical activity, resume normal diet, future appointments, medications, and moderate sedation instructions. RN educated pt on when to notify physician and when to go to the hospital. RN educated pt on importance of not overusing stairs at this time and limited weight bearing of 5lbs. RN encouraged pt to voice any questions or concerns, and answered any questions or concerns if pt verbalized. Pt was wheeled off of unit with all of belongings. [facility] NURSNOTE Bedside swallow stud y completed and passed. [facility] Orders Onlyon 05-27-2024 Orders Only [id number] Jenni Quinones 1940 F Date Provider Department Center 05/27/2024 144-HOMA CHAVARRIA [facility] Family History Problem Relation Age of Onset Diabetes Father Heart failure Father Other Other Family Status - Relation Status Age at Father Other [facility] Orders Onlyon 05-23-2024 Orders Only [id number] Jenni Quinones 1940 F Date Provider Department Center 05/23/2024 CHAYO TRAN [facility] Family History Problem Relation Age of Onset Diabetes Father Heart failure Father Other Other Family Status - Relation Status Age at Father Other Normal [facility] HPon 05-13-2024 Cardiovascular Medic [facility] SUBJECTIVE Chief Complaint Patient presents with [...] c/o chest pain. She was transferred to [facility] for further cardiac care. 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 Normal [facility] Office Visiton 05-13-2024 Follow-up visit [id number] Jenni Quinones 1940 F Date Provider Department Center 05/13/2024 BRENT PÉREZ CARD [facility] Family History Problem Relation Age of Onset Diabetes Father Heart failure Father Other Other Family Status - Relation Status Age at Father Other Level of Service:32001 [place] OFFICE/OUTPATIENT ESTABLISHED HIGH [facility] 40 MIN Reason for Visit and Comments: Valve Disorder [3372] Congestive Heart Failure [127] Normal [facility] STR cardiac stress/lexiscano n 04-27-2024 STR cardiac stress/lexiscan [facility] [place] [address] Cardiac Stress Test Signed Patient: Jenni Quinones MR#: [id number] 0 : 1940 Acct:[id number] Age/Sex: 84 / F ADM Date: 04/25/24 Loc: Room: [address] [place] [address] Type: DIS IN Attending Dr: Javan Gruber MD Copies to: Palmira Lowery MD, [facility] Ingrid Haynes DO Ordering Provider: Ingrid [...] 04/28/24 1507 Dictated By: Palmira Lowery MD, [facility] 04/27/24 1606 Signed By: 05/01/24 1218 Normal [facility] A1C with Estimated Average Marlena mosqueda 04-25-2024 Glucose [Mass/Vol] 171 mg/dL Normal [facility] Comment on above: Result Comment: PERF ORMED BY: [place] [address] PATHOLOGIST [place] ALVARO LEWIS M.D. Performed By: #### M G, LIPID, A1C [facility] eA, BMP, HEPATIC #### [facility] [address] [id number] [facility] Activated partial thrombopla stin time (aPTT) in platelet poor plasma by coagulation aOrdered By: Lalo Carter on 04-25-2024 aPTT Coag (PPP) [Time] 30.0 s 25.1-36.5 [facility] Comment on above: A hematocrit value g reater than 55% may lead to inaccurate results in coagulation testing. Patients having hematocrit values >55% require a special collection tube for coagulation studies. Please contact the laboratory at [phone] for redraw instructions. Alanine aminotransferase [En zymatic activity/volume] in Serum or PlasmaOrdered By: Lalo Carter on 04-25-2024 ALT [Catalytic activity/Vol] 7 U/L Normal 7-52 [facility] Comment on above: Order Comment: FASTI JOO Y Performed By: #### M G, LIPID, A1C [facility] eA, BMP, HEPATIC #### [facility] [address] [id number] [place] Albumin [Mass/volume] in Ser um or Plasma by Bromocresol green (BCG) dye binding methoOrdered By: Lalo Carter on 04-25-2024 Albumin BCG dye [Mass/Vol] 3.1 g/dL Low 3.5-5.7 [facility] Alkaline phosphatase [Enzyma tic activity/volume] in Serum or PlasmaOrdered By: Lalo Carter on 04-25-2024 ALP [Catalytic activity/Vol] 78 U/L Normal 34-104 [facility] Comment on above: Order Comment: FASTI NG Y Performed By: #### M G, LIPID, A1C WTH eA, BMP, HEPATIC #### [facility] [address] Aspartate aminotransferase [ Enzymatic activity/volume] in Serum or PlasmaOrdered By: Lalo Carter on 04-25-2024 AST [Catalytic activity/Vol] 13 U/L Normal 13-39 [facility] Comment on above: Order Comment: FASTI NG Y Performed By: #### M G, LIPID, A1C WTH eA, BMP, HEPATIC #### [facility] [address] Automated basophil %Ordered By: Lalo Carter on 04-25-2024 Basophils/100 WBC (Bld) 0.8 % Normal . [facility] Comment on above: Performed By: #### M G, LIPID, A1C WTH eA, BMP, HEPATIC #### [facility] [address] Automated basophil countOrde red By: Lalo Carter on 04-25-2024 Basophils (Bld) [#/Vol] 0.1 10*3/uL Normal 0.0-0.2 [facility] Comment on above: Result Comment: PERF ORMED BY: [place] [address] PATHOLOGIST [place] ALVARO LEWIS M.D. Performed By: #### M G, LIPID, A1C WTH eA, BMP, HEPATIC #### [facility] [address] Automated blood monocyte cou ntOrdered By: Lalo Carter on 04-25-2024 Monocytes (Bld) [#/Vol] 0.8 10*3/uL Normal 0.0-0.8 [facility] Comment on above: Performed By: #### M G, LIPID, A1C WTH eA, BMP, HEPATIC #### [facility] [address] Automated eosinophil %Ordere d By: Lalo Carter on 04-25-2024 Eosinophils/100 WBC (Bld) 2.9 % Normal . [facility] Comment on above: Performed By: #### M G, LIPID, A1C WTH eA, BMP, HEPATIC #### [facility] [address] Automated eosinophil countOr dered By: Lalo Carter on 04-25-2024 Eosinophils (Bld) [#/Vol] 0.3 10*3/uL Normal 0.0-0.45 [facility] Comment on above: Performed By: #### M G, LIPID, A1C WTH eA, BMP, HEPATIC #### [facility] [address] Automated monocyte %Ordered By: Lalo Carter on 04-25-2024 Monocytes/100 WBC (Bld) 8.7 % Normal . [facility] Comment on above: Performed By: #### M G, LIPID, A1C WTH eA, BMP, HEPATIC #### [facility] [address] Automated neutrophil %Ordere d By: Lalo Carter on 04-25-2024 Neutrophils/100 WBC (Bld) 79.6 % Normal . [facility] Comment on above: Performed By: #### M G, LIPID, A1C WTH eA, BMP, HEPATIC #### [facility] [address] Basic Metabolic Panelon 04-08 Creatinine Clr Calc Pharmacy 32.54 Normal [facility] Comment on above: Order Comment: FASTI NG Y Performed By: #### M G, LIPID, A1C WTH eA, BMP, HEPATIC #### [facility] [address] GFR/1.73 sq M.predicted MDRD (S/P/Bld) [Vol rate/Area] 44.359 mL/min/{1.73_m2} Normal [facility] Comment on above: Order Comment: FASTI NG Y Performed By: #### M G, LIPID, A1C WTH eA, BMP, HEPATIC #### [facility] [address] [place] [address] [facility] Bilirubin.direct [Mass/volum e] in Serum or PlasmaOrdered By: Lalo Carter on 04-25-2024 Bilirubin.direct [Mass/Vol] 0.10 mg/dL 0.03-0.18 [facility] Bilirubin.total [Mass/volume ] in Serum or PlasmaOrdered By: Lalo Carter on 04-25-2024 Bilirubin [Mass/Vol] 0.5 mg/dL Normal 0.3-1.0 [facility] Comment on above: Order Comment: FASTI NG Y Performed By: #### M G, LIPID, A1C WTH PEREZ Gonzales, HEPATIC #### [facility] [address] [id number] [facility] CT angio chest PE protocolon 04-25-2024 CT angio chest PE protocol [facility] [place] [address] [place] [address] CT Scan Report Signed Patient: Jenni Quinones MR#: [id number] 0 : 1940 Acct:[id number] Age/Sex: 84 / F ADM Date: 04/25/24 Loc: Room: [address] [place] [address] Type: ADM IN Attending Dr: Lalo Carter [...] Rosina Levin M.D.04/25/2024 8:30 AM Dictation Location: [place] [address] Transcribed By: [facility] 04/25/24829 Dictated By: Rosina Levin MD 04/25/24805 Signed By: 04/25/24829 Normal [facility] Calcium [Mass/volume] in Ser um or PlasmaOrdered By: Lalo Carter on 04-25-2024 Calcium [Mass/Vol] 8.4 mg/dL Low 8.6-10.3 [facility] Comment on above: Order Comment: FASTI NG Y Performed By: #### M G, LIPID, A1C WTH eA, BMP, HEPATIC #### [facility] [address] [place] [phone] [place] Capillary blood glucose mer urement by glucometer (mass/volume)Ordered By: Javan Gruber on 04-25-2024 Glucose [Mass/Vol] 108 mg/dL Normal [facility] Comment on above: Random Glucose Refer ence Range is dependent on time and content of last meal. Glucose of more than 200 mg/dL in a nonstressed, ambulatory subject supports the diagnosis of Diabetes Mellitus. Result Comment: [place] om Glucose Reference Range is dependent on time and content of last meal. Glucose of more than 200 mg/dL in a nonstressed, ambulatory subject supports the diagnosis of Diabetes Mellitus. Performed By: #### M G, LIPID, A1C WTH PEREZ Gonzales, HEPATIC #### [facility] [address] [place] [phone] [place] Carbon dioxide, total [Moles /volume] in Serum or PlasmaOrdered By: Lalo Carter on 04-25-2024 CO2 [Moles/Vol] 30.3 mmol/L Normal 21.0-31.0 [facility] Comment on above: Order Comment: FASTI NG Y Performed By: #### M G, LIPID, A1C WTH PEREZ Gonzales, HEPATIC #### [facility] [address] [place] [address] [place] Chloride [Moles/volume] in S theresa or PlasmaOrdered By: Lalo Carter on 04-25-2024 Chloride [Moles/Vol] 102 mmol/L Normal 98-107 [facility] Comment on above: Order Comment: FASTI NG Y Performed By: #### M G, LIPID, A1C WTH PEREZ Gonzales, HEPATIC #### [facility] [address] [place] [phone] [place] Cholesterol [Mass/volume] in Serum or PlasmaOrdered By: Lalo Carter on 04-25-2024 Cholesterol [Mass/Vol] 88 mg/dL Low 140-200 [facility] Comment on above: Chol less than 200 m g/dl low riskChol 201-239 mg/dl borderline riskChol 240 mg/dl and greater high risk Order Comment: FASTI NG Y Result Comment: Chol less than 200 mg/dl low risk Chol 201-239 mg/dl borderline risk Chol 240 mg/dl and greater high risk Performed By: #### M G, LIPID, A1C WTH eA, BMP, HEPATIC #### [facility] [address] Cholesterol in LDL Calc [Mas s/Vol]Ordered By: Lalo Carter on 04-25-2024 Cholesterol in LDL [Mass/Vol] 36 mg/dL 0-100 [facility] Comment on above: LDL ATP III CLASSIFI CATIONLDL less than 100 mg/dL OptimalLDL 100-129 mg/dL Near or above optimalLDL 130-159 mg/dL Borderline highLDL 160-189 mg/dL HighLDL greater than 189 mg/dL Very high Cholesterol in VLDL Calc [Ma ss/Vol]Ordered By: Lalo Carter on 04-25-2024 Cholesterol in VLDL [Mass/Vol] 18 mg/dL [facility] Complete Blood Count Auto Di ffon 04-25-2024 Mean Corpuscular HGB Conc 32.8 g/dL Normal 32.0-35.0 [facility] Comment on above: Performed By: #### M G, LIPID, A1C WTH eA, BMP, HEPATIC #### [facility] [address] NRBC% 0.1 /100{WBC} Normal 0-0.5 [facility] Comment on above: Performed By: #### M G, LIPID, A1C WTH eA, BMP, HEPATIC #### [facility] [address] Creatinine [Mass/volume] in Serum or PlasmaOrdered By: Lalo Carter on 04-25-2024 Creatinine [Mass/Vol] 1.20 mg/dL Normal 0.60-1.20 [facility] Comment on above: Order Comment: FASTI NG Y Performed By: #### M G, LIPID, A1C WTH eA, BMP, HEPATIC #### [facility] [address] ECG 12 lead ECGon 04-25-2024 ECG 12 lead ECG [facility] [place] [id number] Electrocardiograph Report Signed Patient: Jenni Quinones MR#: [id number] 0 : 1940 Acct:[id number] Age/Sex: 84 / F ADM Date: 04/25/24 Loc: Room: [address] [place] [address] Type: DIS IN Attending Dr: Javan Gruber [...] previous ECGs available Confirmed by SEBASTIÁN MOULTON [facility], [place] ([id number]) on 04/25/2024 5:26:27 PM Referred By: Electronically Signed By: PALMIRA LOWERY MD [facility] Transcribed By: MUS Signed By Palmira Lowery MD, [facility] 04/25/24 1726 Normal [facility] ECH echo transthoracicon ECH echo transthoracic [place] [id number] Echocardiogram Signed Patient: Jenni Quinones MR#: [id number] 0 : 1940 Acct:[id number] Age/Sex: 84 / F ADM Date: 04/25/24 Loc: Room: [address] [place] [address] Type: DIS IN Attending Dr: Javan Gruber MD Ordering Provider: Lalo Carter DO Date of Service: 04/25/24 ECH/ECH echo transthoracic: history of aortic insufficiency. Copies to: Pamlira Lowery MD, [facility] Lalo Carter DO Weight: 166 lb [...] content not included)... Normal [facility] Erythrocyte distribution wid th [Ratio] by Automated countOrdered By: Lalo Carter on 04-25-2024 Erythrocyte distribution width (RBC) [Ratio] 18.3 % High 11.9-15.3 [facility] Comment on above: Performed By: #### M G, LIPID, A1C WT eA, BMP, HEPATIC #### [facility] [address] Erythrocytes [#/volume] in B lood by Automated countOrdered By: Lalo Carter on 04-25-2024 RBC (Bld) [#/Vol] 3.18 10*6/uL Low 3.60-5.00 [facility] Comment on above: Performed By: #### M G, LIPID, A1C WT eA, BMP, HEPATIC #### [facility] [address] Glucose Poct Glucometerson 1 Commemt1 Glu2: Cleaned Meter Normal [facility] Comment on above: Result Comment: PERF ORMED BY: [place] [address] PATHOLOGIST [place] AVLARO LEWIS M.D. Performed By: #### M G, LIPID, A1C WTH eA, BMP, HEPATIC #### [facility] [address] [place] [id number] [place] Glucose [Mass/volume] in Ser um or PlasmaOrdered By: Lalo Carter on 04-25-2024 Glucose [Mass/Vol] 121 mg/dL High 70-100 [facility] Comment on above: ADA recommended refe rence rangeRandom Glucose Reference Range is dependent on time and content of last meal. Glucose of more than 200 mg/dL in a nonstressed, ambulatory subject supports the diagnosis of Diabetes Mellitus. Order Comment: FASTI NG Y Result Comment: [place] om Glucose Reference Range is dependent on time and content of last meal. Glucose of more than 200 mg/dL in a nonstressed, ambulatory subject supports the diagnosis of Diabetes Mellitus. ADA recommended reference range Performed By: #### M G, LIPID, A1C WTH eA, BMP, HEPATIC #### [facility] [address] [place] [id number] [facility] Glucose mean value [Mass/vol ume] in Blood Estimated from glycated hemoglobinOrdered By: Lalo Carter on 04-25-2024 Average glucose Estimated from glycated hemoglobin (Bld) [Mass/Vol] 171 mg/dL [facility] Hematocrit [Volume Fraction] of Blood by Automated countOrdered By: Lalo Carter on 04-25-2024 Hematocrit (Bld) [Volume fraction] 28.8 % Low 34.0-46.4 [facility] Comment on above: Performed By: #### M G, LIPID, A1C WTH eA, BMP, HEPATIC #### [facility] [address] [place] [id number] [facility] Hemoglobin A1c percentageOrd ered By: Lalo Carter on 04-25-2024 HbA1c (Bld) [Mass fraction] 7.6 % High 4.3-5.6 [facility] Comment on above: Increased risk for d iabetes: 5.7 - 6.4diabetes: >6.4glycemic control for adults with diabetes: <7.0 Result Comment: Incr eased risk for diabetes: 5.7 - 6.4 diabetes: >6.4 glycemic control for adults with diabetes: <7.0 Performed By: #### M G, LIPID, A1C WTH eA, BMP, HEPATIC #### [facility] [address] Hemoglobin [Mass/volume] in BloodOrdered By: Lalo Carter on 04-25-2024 Hemoglobin (Bld) [Mass/Vol] 9.4 g/dL Low 11.8-15.4 [facility] Comment on above: Performed By: #### M G, LIPID, A1C WTH eA, BMP, HEPATIC #### [facility] [address] Hepatic Panelon 04-25-2024 Albumin [Mass/Vol] 3.1 g/dL Low 3.5-5.7 [facility] Comment on above: Order Comment: FASTI NG Y Performed By: #### M G, LIPID, A1C WTH eA, BMP, HEPATIC #### [facility] [address] Bilirubin,Indirect 0.4 mg/dL Normal [facility] Comment on above: Order Comment: FASTI NG Y Performed By: #### M G, LIPID, A1C WTH eA, BMP, HEPATIC #### [facility] [address] Bilirubin.indirect [Mass/Vol] 0.10 mg/dL Normal 0.03-0.18 [facility] Comment on above: Order Comment: FASTI NG Y Performed By: #### M G, LIPID, A1C WTH eA, BMP, HEPATIC #### [facility] [address] INR in Platelet poor plasma by Coagulation assayOrdered By: Lalo Carter on 04-25-2024 INR Coag (PPP) [Relative time] 1.1 {INR} Normal [facility] Comment on above: INR Therapeutic [...] LIPID, A1C WTH eA, BMP, HEPATIC #### [facility] [address] Leukocytes [#/volume] correc paige for nucleated erythrocytes in Blood by Automated counOrdered By: Lalo Carter on 04-25-2024 WBC corrected for nucl RBC Auto (Bld) [#/Vol] 8.9 10*3/uL 3.8-11.6 [facility] Leukocytes [#/volume] in Blo od by Automated countOrdered By: Lalo Carter on 04-25-2024 WBC (Bld) [#/Vol] 8.9 10*3/uL Normal 3.8-11.6 [facility] Comment on above: Performed By: #### M G, LIPID, A1C WTH eA, BMP, HEPATIC #### [facility] [address] Lipid Panelon 04-25-2024 LDL Cholesterol,Calculate d 36 mg/dL Normal 0-100 [facility] Comment on above: Order Comment: BETSEY Blackburn Result Comment: LDL ATP III CLASSIFICATION LDL less than 100 mg/dL Optimal LDL 100-129 mg/dL Near or above optimal LDL 130-159 mg/dL Borderline high LDL 160-189 mg/dL High LDL greater than 189 mg/dL Very high Performed By: #### M G, LIPID, A1C WTH eA, BMP, HEPATIC #### [facility] [address] Triglyceride w/Reflex 92 mg/dL Normal 0-149 [facility] Comment on above: [...] LIPID, A1C WTH eA, BMP, HEPATIC #### [facility] [address] [place] [address] VLDL CHOLESTEROL 18 mg/dL Normal [facility] Comment on above: Order Comment: BETSEY GE Y Performed By: #### M G, LIPID, A1C WTH eA, BMP, HEPATIC #### [address] Lymphocytes [#/volume] in Bl ood by Automated countOrdered By: Lalo Carter on 04-25-2024 Lymphocytes (Bld) [#/Vol] 0.7 10*3/uL Low 1.00-4.8 [facility] Comment on above: Performed By: #### M G, LIPID, A1C WTH eA, BMP, HEPATIC #### [place] [address] [place] Lymphocytes/100 leukocytes i n Blood by Automated countOrdered By: Lalo Carter on 04-25-2024 Lymphocytes/100 WBC (Bld) 8.0 % Normal . [facility] Comment on above: Performed By: #### M G, LIPID, A1C WTH eA, BMP, HEPATIC #### [place] [address] [place] MCH [Entitic mass] by Automa paige countOrdered By: Lalo Carter on 04-25-2024 MCH (RBC) [Entitic mass] 29.7 pg Normal 24.7-34.3 [facility] Comment on above: Performed By: #### M G, LIPID, A1C WTH eA, BMP, HEPATIC #### [address] MCHC Auto (RBC) [Mass/Vol]Or dered By: Lalo Carter on 04-25-2024 MCHC (RBC) [Mass/Vol] 32.8 g/dL 32.0-35.0 [facility] MCV [Entitic volume] by Auto mated countOrdered By: Lalo Carter on 04-25-2024 MCV (RBC) [Entitic vol] 90.6 fL Normal 80-100 [facility] Comment on above: Performed By: #### M G, LIPID, A1C WTH eA, BMP, HEPATIC #### [facility] [address] Magnesium [Mass/volume] in S theresa or PlasmaOrdered By: Lalo Carter on 04-25-2024 Magnesium [Mass/Vol] 2.1 mg/dL Normal 1.9-2.7 [facility] Comment on above: Order Comment: BETSEY GE Y Performed By: #### M G, LIPID, A1C WTH eA, BMP, HEPATIC #### [facility] [address] [place] lissy perf SPECT rest stron 04-25-2024 NM lissy perf SPECT rest str [facility] [place] [address] Nuclear Medicine Report Signed Patient: Jenni Quinones MR#: [id number] 0 : 1940 Acct:[id number] Age/Sex: 84 / F ADM Date: 04/25/24 Loc: Room: [address] [place] [address] Type: DIS IN Attending Dr: Javan Gruber [...] NTS 04/25/241952 Dictated By: Palmira Lowery MD, [facility] 04/25/24 1614 Signed By: 05/01/24 1218 Normal [facility] Neutrophils [#/volume] in Bl ood by Automated countOrdered By: Lalo Carter on 04-25-2024 Neutrophils (Bld) [#/Vol] 7.1 10*3/uL Normal 1.8-7.7 [facility] Comment on above: Performed By: #### M G, LIPID, A1C WTH eA, BMP, HEPATIC #### [facility] [address] [place] [address] No Panel InformationOrdered By: Javan Gruber on 04-25-2024 Bedside Glucose Comment Glu2: cleaned meter [facility] No Panel InformationOrdered By: Lalo Carter on 04-25-2024 Estimated GFR (CKD-EPI) 44.359 mL/Min [facility] Creatinine Clearance (Chem 32.54 [facility] Nucleated erythrocytes [Pres ence] in Blood by Automated countOrdered By: Lalo Carter on 04-25-2024 Nucleated RBC Auto Ql (Bld) 0.1 /100{WBC} 0-0.5 [facility] Partial Thromboplastin Timeo n 04-25-2024 aPTT Coag (Bld) [Time] 30.0 s Normal 25.1-36.5 [facility] Comment on above: Result Comment: A he matocrit value greater than 55% may lead to inaccurate results in coagulation testing. Patients having hematocrit values >55% require a special collection tube for coagulation studies. Please contact the laboratory at [phone] for redraw instructions. PERFORMED BY: [facility] [address] [place] [address] PATHOLOGIST [place] ALVARO LEWIS M.D. Performed By: #### M G, LIPID, A1C WTH eA, BMP, HEPATIC #### [facility] [address] Platelet mean volume [Entiti c volume] in Blood by Automated countOrdered By: Lalo Carter on 04-25-2024 Platelet mean volume (Bld) [Entitic vol] 8.0 fL Normal 6.3-10.7 [facility] Comment on above: Performed By: #### M G, LIPID, A1C WTH eA, BMP, HEPATIC #### [place] [address] [place] Platelets [#/volume] in Bloo d by Automated countOrdered By: Lalo Carter on 04-25-2024 Platelets (Bld) [#/Vol] 273 10*3/uL Normal 150-450 [facility] Comment on above: Performed By: #### M G, LIPID, A1C WTH eA, BMP, HEPATIC #### [address] Potassium [Moles/volume] in Serum or PlasmaOrdered By: Lalo Carter on 04-25-2024 Potassium [Moles/Vol] 5.2 mmol/L High 3.5-5.1 [facility] Comment on above: Order Comment: FASTI NG Y Performed By: #### M G, LIPID, A1C WTH eA, BMP, HEPATIC #### [place] [id number] [place] Protein [Mass/volume] in Ser um or PlasmaOrdered By: Lalo Carter on 04-25-2024 Protein [Mass/Vol] 6.4 g/dL Normal 6.4-8.9 [facility] Comment on above: Order Comment: FASTI NG Y Performed By: #### M G, LIPID, A1C WTH eA, BMP, HEPATIC #### [address] Prothrombin time (PT)Ordered By: Lalo Carter on 04-25-2024 PT Coag (PPP) [Time] 12.9 s Normal 9.0-12.9 [facility] Comment on above: A hematocrit value g reater than 55% may lead to inaccurate results in coagulation testing. Patients having hematocrit values >55% require a special collection tube for coagulation studies. Please contact the laboratory at [phone] for redraw instructions. Result Comment: A he matocrit value greater than 55% may lead to inaccurate results in coagulation testing. Patients having hematocrit values >55% require a special collection tube for coagulation studies. Please contact the laboratory at [phone] for redraw instructions. Performed By: #### M G, LIPID, A1C WTH eA, BMP, HEPATIC #### [facility] [address] [place] [address] Serum globulin measurement b y calculation (mass/volume)Ordered By: Lalo Carter on 04-25-2024 Globulin (S) [Mass/Vol] 3.3 g/dL [facility] Comment on above: Order Comment: FASTI NG Y Performed By: #### M G, LIPID, A1C WTH eA, BMP, HEPATIC #### [facility] [address] [place] [address] Serum or plasma albumin/glob ulin mass ratioOrdered By: Lalo Carter on 04-25-2024 Albumin/Globulin [Mass ratio] 0.9 {ratio} [facility] Comment on above: Order Comment: FASTI NG Y Performed By: #### M G, LIPID, A1C WTH eA, BMP, HEPATIC #### [facility] [address] [place] [address] Serum or plasma anion gap de terminationOrdered By: Lalo Carter on 04-25-2024 Anion gap [Moles/Vol] 10.9 mmol/L Normal 6.0-15.0 [facility] Comment on above: Order Comment: FASTI NG Y Performed By: #### M G, LIPID, A1C WTH eA, BMP, HEPATIC #### [facility] [address] [place] [address] Serum or plasma high density lipoprotein (HDL) cholesterol measurementOrdered By: Lalo Carter on 04-25-2024 Cholesterol in HDL [Mass/Vol] 34 mg/dL Normal 23-92 [facility] Comment on above: HDL CHOL ATP-III CLA SSIFICATION Cardiovascular RiskHDL > or equal to 60 mg/dL LOWHDL < 40 mg/dL HIGH Order Comment: BETSEY Blackburn Result Comment: HDL CHOL ATP-III CLASSIFICATION Cardiovascular Risk HDL > or equal to 60 mg/dL LOW HDL < 40 mg/dL HIGH Performed By: #### M G, LIPID, A1C WTH eA, BMP, HEPATIC #### [facility] [address] Serum or plasma non-glucuron idated bilirubin measurement (mass/volume)Ordered By: Lalo Carter on 04-25-2024 Bilirubin.indirect [Mass/Vol] 0.4 mg/dL [facility] Serum or plasma total choles terol/high density lipoprotein (HDL) cholesterol mass ratOrdered By: Lalo Carter on 04-25-2024 Cholesterol.total/Cho lesterol in HDL [Mass ratio] 2.6 {ratio} Normal <5.0 [facility] Comment on above: Order Comment: BETSEY Blackburn Result Comment: PERF ORMED BY: [place] [address] PATHOLOGIST [place] ALVARO LEWIS M.D. Performed By: #### M G, LIPID, A1C WTH eA, BMP, HEPATIC #### [facility] [address] [place] [address] [place] Sodium [Moles/volume] in Ser um or PlasmaOrdered By: Lalo Carter on 04-25-2024 Sodium [Moles/Vol] 138 mmol/L Normal 136-145 [facility] Comment on above: Order Comment: BETSEY Blackburn Performed By: #### M G, LIPID, A1C WTH eA, BMP, HEPATIC #### [facility] [address] [place] [address] [place] Triglyceride [Mass/volume] i n Serum or PlasmaOrdered By: Lalo Carter on 04-25-2024 Triglyceride [Mass/Vol] 92 mg/dL 0-149 [facility] Comment on above: TRIG ATP III CLASSIF ICATIONTRIG less than 150 mg/dL NormalTRIG 150-199 mg/dL Borderline highTRIG 200-500 mg/dL High TRIG greater than 500 mg/dL Very highStandard traceable to the Center for Disease Conrtrol and Prevention (CDC) test method. Troponin I High Sensitivityo n 04-25-2024 Troponin I High Sensitivity 18.1 pg/mL High 0.0-15.0 [facility] Comment on above: Result Comment: PERF ORMED BY: [place] [address] PATHOLOGIST [place] ALVARO LEWIS M.D. Performed By: #### M G, LIPID, A1C WTH eA, BMP, HEPATIC #### [address] Troponin I High Sensitivity 19.5 pg/mL High 0.0-15.0 [facility] Comment on above: Result Comment: PERF ORMED BY: [place] [address] PATHOLOGIST [place] ALVARO LEWIS M.D. Performed By: #### M G, LIPID, A1C WTH eA, BMP, HEPATIC #### [address] Troponin I.cardiac [Mass/vol ume] in Serum or Plasma by Detection limit <= 0.01 ng/Ordered By: Lalo Carter on 04-25-2024 Troponin I.cardiac DL <= 0.01 ng/mL [Mass/Vol] 18.1 pg/mL High 0.0-15.0 [facility] Urea nitrogen [Mass/volume] in Serum or PlasmaOrdered By: Lalo Carter on 04-25-2024 Urea nitrogen [Mass/Vol] 31 mg/dL High 7-25 [facility] Comment on above: Order Comment: FASTI NG Y Performed By: #### M G, LIPID, A1C WTH eA, BMP, HEPATIC #### [facility] [address] [place] [address] [facility] Office Visiton 01-07-2024 Follow-up visit [id number] Jenni Quinones 1940 F Date Provider Department Center 01/07/2024 JOSEFINA STEIN Family History Problem Relation Age of Onset Diabetes Father Heart failure Father Other Other Family Status - Relation Status Age at Father Other Level of Service:02394 [place] OFFICE/OUTPATIENT ESTABLISHED MOD MDM 30 MIN Normal [facility] 37on 12-07-2023 37 Have blood drawn [...] normal or in recliner. Normal [facility] Office Visiton 12-07-2023 Follow-up visit [id number] Jenni Quinones 1940 F Date Provider Department Center 12/07/2023 FARZANEH PERSAUD SYMONE [place] Family History Problem Relation Age of Onset Diabetes Father Heart failure Father Other Other Family Status - Relation Status Age at Father Other Level of Service:59717 [place] OFFICE/OUTPATIENT ESTABLISHED MOD MDM 30 MIN Normal [facility] 36on 11-16-2023 36 Regarding echo perfo rmed on 10/23/2023: MD Mariaa Fernandes MA; Farzaneh Arndt NP [place], she sees you soon, echo is consistent with volume overload, I could consider intensification of diuretics before determining the need for FARA Normal [facility] XR COMPARISON OF OUTSIDE HIRAL MSon 08-07-2023 XR COMPARISON OF OUTSIDE FILMS RADRPT There is no result for this study. This is a placeholder for comparison films only. Final result Normal [facility] XR COMPARISON OF OUTSIDE HIRAL MSon 05-29-2023 XR COMPARISON OF OUTSIDE FILMS RADRPT There is no result for this study. This is a placeholder for comparison films only. Final result Normal [facility] FLUORO FOR SURGICAL PROCEDUR ESon 05-09-2023 FLUORO FOR SURGICAL PROCEDURES RADRPT Radiology exam is complete. No Radiologist dictation. Please follow up with ordering provider. Final result Normal [facility] SURGICALon 05-09-2023 SURGICAL [place] [facility] JENNI QUINONES [id number] Assoc. Page 1 of [address] [place] [address] PROC: 05/09/2023 [facility] RECV: 05/11/[address] RPTD: 05/16/2023 [place] [address] LOC: LAY ACCT: [id number] SEX: F : 1940 AGE: 83 Y [...] Gross Examination: The container is labeled Jenni Quinones T12 vertebral body biopsy. Received in formalin [...] negative. The CD138 demonstrates scattered plasma cells. Macy and lambda surface immunoglobulin light chain LALO is performed with adequate controls. The kappa and lambda stains demonstrate a polytypic plasma cell population. Overall, there is no evidence of an atypical infiltrate. Malignancy is not identified. *This test was developed and its performance characteristics determined by [facility]. It has not been cleared or approved by the U.S. Food and Drug Administration. Pursuant to the requirements of CLIA, this laboratory has established and verified the test's accuracy and precision. Additional information about this type of test is available upon request. [phone] INDY PLATT M.D., F.C.A.P. 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 Page 1 of 1\X0D0A\[address]\X0D0A\[place] [address]\X0D0A\ PROC: 05/09/2023\X0D0A\[facility] RECV: 05/11/2023\X0D0A\[address] RPTD: 05/16/2023\X0D0A\[place] [address]\X0D0A\ LOC: WYA\X0D0A\ ACCT: [id number] SEX: F\X0D0A\ : 1940 AGE: 83 Y\X0D0A\X0D0A\ [...] negative. The CD138 demonstrates scattered plasma cells. Macy and\X0D0A\lambda surface immunoglobulin light chain LALO is performed with\X0D0A\adequate controls. The kappa and lambda stains demonstrate a polytypic\X0D0A\plasma cell population. Overall, there is no evidence of an atypical\X0D0A\infiltrate. Malignancy is not identified.\X0D0A\X0D0A\*This test was developed and its performance characteristics determined\X0D0A\by [facility]. It has not been cleared or\X0D0A\approved by the U.S. Food and Drug Administration. Pursuant to the\X0D0A\requirements of CLIA, this laboratory has established and verified the\X0D0A\test's accuracy and precision. Additional information about this type\X0D0A\of test is available upon request.\X0D0A\X0D0A\00696\X0D0A\18231\X0D0A\55053 x 3\X0D0A\79023\X0D0A\62741\X0D0A\X0D0A\X0D0A\X0D0A\ \X0D0A\ INDY PLATT M.D., F.C.A.P.\X0D0A\X0D0A\X0D0A\[facility]/ [facility] Printed on: 05/16/2023\X0D0A\[address]\X0D0A\[place], [place] [address]\X0D0A\Original print date: 05/16/2023 Performed By: #### 1 [id number] #### [facility] See Report DIGOXINon 12-06-2022 DIG <0.2 Critically low 0.9-2.[address] [facility] Comment on above: Performed By: #### B LDCX2 #### [facility] [address] [place], [place] [address] Dr. Lisa Martinez PROF CHEM 8 (BAS METB)on Anion gap [Moles/Vol] 9.6 mmol/L Normal [facility] Comment on above: Performed By: #### T SHRFT4, BMP ####[facility] [address] [place], [place] [address]TzDr. Lisa Martinez Calcium [Mass/Vol] 9.0 mg/dL Normal 8.5-10.1 [facility] Comment on above: Performed By: #### T SHRFT4, BMP ####[facility] [address] [place] [address]Dr. Lisa Martinez Chloride [Moles/Vol] 103 mmol/L Normal 98-107 [facility] Comment on above: Performed By: #### T ALFRED4, BMP ####[facility] [address] [place] [address]Dr. Lisa Martinez CO2 [Moles/Vol] 33.4 mmol/L Critically high 21.0-32.0 [facility] Comment on above: Performed By: #### T ALFRED4, BMP ####[facility] [address] [place] [address]Dr. Lisa Martinez Creatinine [Mass/Vol] 1.69 mg/dL Critically high 0.55-1.02 [facility] Comment on above: Performed By: #### T ALFRED4, BMP ####[facility] [address] [place], [place] [address]Dr. Lisa Juan EGFR-AF [place] 35 mL/min/1.73m2 Critically low >=60 [facility] Comment on above: Performed By: #### T ALFRED4, BMP ####[facility] [address] [place], [place] [address]Dr. Lisa Martinez EGFR-NON AF [place] 29 mL/min/1.73m2 Critically low >=60 [facility] Comment on above: Performed By: #### T ALFRED4, BMP ####[facility] [address] [place], [place] [address]Dr. Lisa Martinez Glucose [Mass/Vol] 72 mg/dL Critically low 74-106 [facility] Comment on above: Performed By: #### T ALFRED4, BMP ####[facility] [address] [place], [place] [address]Dr. Lisa Martinez Potassium [Moles/Vol] 4.0 mmol/L Normal 3.5-5.1 [facility] Comment on above: Performed By: #### T ALFRED4, BMP ####[facility] [address] [place], [place] [address]Dr. Lisa Martinez Sodium [Moles/Vol] 142 mmol/L Normal 136-145 [facility] Comment on above: Performed By: #### T ALFRED4, BMP ####[facility] [address] [place] [address]Dr. Lisa Martinez Urea nitrogen [Mass/Vol] 42.0 mg/dL Critically high 7.0-18.0 [facility] Comment on above: Performed By: #### T ALFRED4, BMP ####[facility] [address] [place] [address]Dr. Lisa Martinez Urea nitrogen/Creatinine [Mass ratio] 24.9 mg/mg Normal [facility] Comment on above: Performed By: #### T ALFRED4, BMP ####[facility] [address] [place] [address]Dr. Lisa Martinez TSH W/ REFLEX TO FT4on 12-06 TSH 2.427 uIU/mL Normal 0.358-3.740 [facility] Comment on above: Performed By: #### T KELLEY, BMP ####[facility] [address] [place], [place] [address]Dr. Lisa Martinez BNPon 11-15-2022 Natriuretic peptide B (Bld) [Mass/Vol] 6134.0 pg/mL Critically high <=1,800.0 [facility] Comment on above: Performed By: #### B ORDER ENTRY CLERK, CMP, MG ####[facility] [address] [place], [place] [address]Dr. Lisa Martinez CBC AUTO DIFFon 11-15-2022 BASO # 0.0 103/ul Normal 0.0-0.1 [facility] Comment on above: Performed By: #### K U #### [facility] [address] [place] [address] [address] Lisa Martinez Basophils/100 WBC (Bld) 0.6 % Normal 0.2-2.0 [facility] Comment on above: Performed By: #### K U #### [facility] [address] [place] [address] [address] Lisa Martinez EO # 0.2 103/ul Normal 0.0-0.7 [facility] Comment on above: Performed By: #### K U #### [facility] [address] [place] [address] [address] Lisa Martinez Eosinophils/100 WBC (Bld) 2.9 % Normal 0.9-7.0 [facility] Comment on above: Performed By: #### K U #### [facility] [address] [place] [address] Dr. Lisa Martinez Erythrocyte distribution width (RBC) [Ratio] 14.9 % Normal 11.0-15.0 [facility] [facility] Comment on above: Performed By: #### K U #### [facility] [address] [place] [address] Dr. Lisa Martinez Hematocrit (Bld) [Volume fraction] 31.9 % Critically low 36.0-48.0 [facility] Comment on above: Performed By: #### K U #### [facility] [address] [place] [address] Dr. Lisa Martinez Hemoglobin (Bld) [Mass/Vol] 9.8 g/dL Critically low 12.0-16.0 [facility] Comment on above: Performed By: #### K U #### [facility] [address] [place] [address] Dr. Lisa Martinez IG # 0.02 10e3/ul Normal 0.00-0.03 [facility] Comment on above: Performed By: #### K U #### [facility] [address] [place] [address] Dr. Lisa Martinez IG % 0.3 % Normal 0.0-0.5 [facility] Comment on above: Performed By: #### K U #### [facility] [address] [place] [address] Dr. Lisa Martinez LYMPH # 0.7 103/ul Critically low 1.2-3.8 [facility] Comment on above: Performed By: #### K U #### [facility] [address] [place] [address] Dr. Lisa Martinez Lymphocytes/100 WBC (Bld) 10.9 % Critically low 20.5-60.0 [facility] Comment on above: Performed By: #### K U #### [facility] [address] [place] [address] Dr. Lisa Martinez MANUAL DIFF REQ NO Normal [facility] Comment on above: Performed By: #### K U #### [facility] [address] [place] [address] Dr. Lisa Martinez MCH (RBC) [Entitic mass] 29.1 pg Normal 26.7-34.0 [facility] Comment on above: Performed By: #### K U #### [facility] [address] [place] [address] Dr. Lisa Martinez MCHC (RBC) [Mass/Vol] 30.7 g/dL Normal 29.9-35.2 [facility] Comment on above: Performed By: #### K U #### [facility] [address] [place] [address] Dr. Lisa Martinez MCV (RBC) [Entitic vol] 94.7 fL Normal 81.0-99.0 [facility] Comment on above: Performed By: #### K U #### [facility] [address] [place] [address] Dr. Lisa Martinez MONO # 0.8 103/ul Normal 0.3-0.8 [facility] Comment on above: Performed By: #### K U #### [facility] [address] [place] [address] Dr. Lisa Martinez Monocytes/100 WBC (Bld) 12.2 % Critically high 1.7-12.0 [facility] Comment on above: Performed By: #### K U #### [facility] [address] [place] [address] Dr. Lisa Martinez NEUT # 4.6 103/ul Normal 1.4-6.5 [facility] Comment on above: Performed By: #### K U #### [facility] [address] [place] [address] Dr. Lisa Martinez Neutrophils/100 WBC (Bld) 73.1 % Normal 43.0-75.0 [facility] Comment on above: Performed By: #### K U #### [facility] [address] [address] [address] Lisa Martinez Platelet mean volume (Bld) [Entitic vol] 10.2 fL Normal 9.5-13.5 [facility] Comment on above: Performed By: #### K U #### [facility] [address] [address] [address] Lisa Martinez PLT 186 103/ul Normal 150-450 [facility] Comment on above: Performed By: #### K U #### [facility] [address] [address] [address] Lisa Martinez RBC 3.37 106/ul Critically low 4.20-5.40 [facility] Comment on above: Performed By: #### K U #### [facility] [address] [address] [address] Lisa Martinez WBC 6.3 103/ul Normal 4.0-11.0 [facility] Comment on above: Performed By: #### K U #### [facility] [address] [address] [address] Lisa Martinez CHLORIDE URINE RANDOMon 11-06 Chloride, Urine 126 mmol/L Normal Not Estab. [facility] Comment on above: Performed By: #### B LDCX2 #### [facility] [address] [address] [address] Lisa Martinez CULTURE URINEon 11-15-2022 CULTURE [...] F Trimethoprim/Sulfamethoxa zole <=20 S F Normal [facility] Comment on above: Performed By: #### U RCX #### [facility] [address] [address] [address] Lisa Martinez DIGOXINon 11-15-2022 DIG 0.3 ng/mL Critically low 0.9-2.[address] [facility] Comment on above: Performed By: #### B ORDER ENTRY CLERK, BMP #### [facility] [address] [address] [address] Lisa Martinez MAGNESIUMon 11-15-2022 Magnesium [Mass/Vol] 2.2 mg/dL Normal 1.8-2.4 [facility] Comment on above: Performed By: #### B ORDER ENTRY CLERK, CMP, MG ####[facility] [address] [address]DrIngrid Martinez POINT OF CARE GLUCOSEon 11-06 Glucose [Mass/Vol] 164 mg/dL Critically high 74-106 [facility] Comment on above: Performed By: #### C BC #### [facility] [address] [address] [address] Lisa Martinez PROF 14(COMP METB)on 023 Albumin [Mass/Vol] 3.3 g/dL Critically low 3.4-5.0 [facility] Comment on above: Performed By: #### B ORDER ENTRY CLERK, CMP, MG ####[facility] [address] [address]DrIngrid Martinez Albumin/Globulin [Mass ratio] 0.7 {ratio} Normal [facility] Comment on above: Performed By: #### B ORDER ENTRY CLERK, CMP, MG ####[facility] [address] [address]Dr. Lisa Martinez ALP [Catalytic activity/Vol] 75 U/L Normal 46-116 [facility] Comment on above: Performed By: #### B ORDER ENTRY CLERK, CMP, MG ####[facility] [address] [address]Dr. Lisa Martinez ALT [Catalytic activity/Vol] 14 U/L Normal 14-59 [facility] Comment on above: Performed By: #### B ORDER ENTRY CLERK, CMP, MG ####[facility] [address] [address]Dr. Lisa Martinez Anion gap [Moles/Vol] 11.1 mmol/L Normal [facility] Comment on above: Performed By: #### B ORDER ENTRY CLERK, CMP, MG ####[facility] [address] [address]Dr. Lisa Martinez AST [Catalytic activity/Vol] 14 U/L Critically low 15-37 [facility] Comment on above: Performed By: #### B ORDER ENTRY CLERK, CMP, MG ####[facility] [address] [address]Dr. Lisa Martinez Bilirubin [Mass/Vol] 0.9 mg/dL Normal 0.2-1.0 [facility] Comment on above: Performed By: #### B ORDER ENTRY CLERK, CMP, MG ####[facility] [address] [address]Dr. Lisa Martinez Calcium [Mass/Vol] 9.1 mg/dL Normal 8.5-10.1 [facility] Comment on above: Performed By: #### B ORDER ENTRY CLERK, CMP, MG ####[facility] [address] [place], [place] [address]Dr. Lisa Martinez Chloride [Moles/Vol] 100 mmol/L Normal 98-107 [facility] Comment on above: Performed By: #### B ORDER ENTRY CLERK, CMP, MG ####[facility] [address] [address]Dr. Lisa Martinez CO2 [Moles/Vol] 32.6 mmol/L Critically high 21.0-32.0 [facility] Comment on above: Performed By: #### B ORDER ENTRY CLERK, CMP, MG ####[facility] [address] [place], [place] [address]Dr. Lisa Martinez Creatinine [Mass/Vol] 2.65 mg/dL Critically high 0.55-1.02 [facility] Comment on above: Performed By: #### B ORDER ENTRY CLERK, CMP, MG ####[facility] [address] [address]Dr. Lisa Martinez EGFR-AF [place] 21 mL/min/1.73m2 Critically low >=60 [facility] Comment on above: Performed By: #### B ORDER ENTRY CLERK, CMP, MG ####[facility] [address] [address]Dr. Lisa Martinez EGFR-NON AF [place] 17 mL/min/1.73m2 Critically low >=60 [facility] Comment on above: Performed By: #### B ORDER ENTRY CLERK, CMP, MG ####[facility] [address] [address]Dr. Lisa Martinez Globulin (S) [Mass/Vol] 4.7 g/dL Normal [facility] Comment on above: Performed By: #### B ORDER ENTRY CLERK, CMP, MG ####[facility] [address] [address]Dr. Lisa Martinez Glucose [Mass/Vol] 131 mg/dL Critically high 74-106 [facility] Comment on above: Performed By: #### B ORDER ENTRY CLERK, CMP, MG ####[facility] [address] [address]Dr. Lisa Martinez Potassium [Moles/Vol] 3.7 mmol/L Normal 3.5-5.1 [facility] Comment on above: Performed By: #### B ORDER ENTRY CLERK, CMP, MG ####[facility] [address] [address]Dr. Lisa Martinez Protein [Mass/Vol] 8.0 g/dL Normal 6.4-8.2 [facility] Comment on above: Performed By: #### B ORDER ENTRY CLERK, CMP, MG ####[facility] [address] [address]Dr. Lisa Martinez Sodium [Moles/Vol] 140 mmol/L Normal 136-145 [facility] Comment on above: Performed By: #### B ORDER ENTRY CLERK, CMP, MG ####[facility] [address] [address]Dr. Lisa Martinez Urea nitrogen [Mass/Vol] 66.0 mg/dL Critically high 7.0-18.0 [facility] Comment on above: Performed By: #### B ORDER ENTRY CLERK, CMP, MG ####[facility] [address] [address]Dr. Lisa Martinez Urea nitrogen/Creatinine [Mass ratio] 24.9 mg/mg Normal [facility] Comment on above: Performed By: #### B ORDER ENTRY CLERK, CMP, MG ####[facility] [address] [address]Dr. Lisa Martinez UREA NITROGEN, RANDOM URon 0 11-15-2022 Urea Nitrogen, Urine 165 mg/dL Normal Not Estab. [facility] Comment on above: Performed By: #### U NR ####[facility] [address] [address]Dr. Lisa Martinez BNPon 11-14-2022 Natriuretic peptide B (Bld) [Mass/Vol] 8525.0 pg/mL Critically high <=1,800.0 [facility] Comment on above: Performed By: #### B ORDER ENTRY CLERK ####[facility] [address] [address]Dr. Lisa Martinez CBC AUTO DIFFon 11-14-2022 BASO # 0.0 103/ul Normal 0.0-0.1 [facility] Comment on above: Performed By: #### C VDTBH #### [facility] [address] [place] [address] Dr. Lisa Martinez Basophils/100 WBC (Bld) 0.5 % Normal 0.2-2.0 [facility] Comment on above: Performed By: #### C VDTBH #### [facility] [address] [place] [address] Dr. Lisa Martinez EO # 0.2 103/ul Normal 0.0-0.7 [facility] Comment on above: Performed By: #### C VDTBH #### [facility] [address] [place] [address] Dr. Lisa Martinez Eosinophils/100 WBC (Bld) 3.4 % Normal 0.9-7.0 [facility] Comment on above: Performed By: #### C VDTBH #### [facility] [address] [place] [address] Dr. Lisa Martinez Erythrocyte distribution width (RBC) [Ratio] 14.9 % Normal 11.0-15.0 [facility] Comment on above: Performed By: #### C VDTBH #### [facility] [address] [place] [address] Dr. Lisa Martinez Hematocrit (Bld) [Volume fraction] 31.3 % Critically low 36.0-48.0 [facility] Comment on above: Performed By: #### C VDTBH #### [facility] [address] [place] [address] Dr. Lisa Martinez Hemoglobin (Bld) [Mass/Vol] 9.4 g/dL Critically low 12.0-16.0 [facility] Comment on above: Performed By: #### C VDTBH #### [facility] [address] [place] [address] Dr. Lisa Martinez IG # 0.01 10e3/ul Normal 0.00-0.03 [facility] Comment on above: Performed By: #### C VDTBH #### [facility] [address] [place] [address] Dr. Lisa Martinez IG % 0.2 % Normal 0.0-0.5 [facility] Comment on above: Performed By: #### C VDTBH #### [facility] [address] [place] [address] Dr. Lisa Martinez LYMPH # 0.9 103/ul Critically low 1.2-3.8 [facility] Comment on above: Performed By: #### C VDTBH #### [facility] [address] [place] [address] Dr. Lisa Martinez Lymphocytes/100 WBC (Bld) 15.2 % Critically low 20.5-60.0 [facility] Comment on above: Performed By: #### C VDTBH #### [facility] [address] [place] [address] Dr. Lisa Martinez MANUAL DIFF REQ NO Normal [facility] Comment on above: Performed By: #### C VDTBH #### [facility] [address] [place] [address] Dr. Lisa Martinez MCH (RBC) [Entitic mass] 29.0 pg Normal 26.7-34.0 [facility] Comment on above: Performed By: #### C VDTBH #### [facility] [address] [place] [address] Dr. Lisa Martinez MCHC (RBC) [Mass/Vol] 30.0 g/dL Normal 29.9-35.2 [facility] Comment on above: Performed By: #### C VDTBH #### [facility] [address] [place] [address] Dr. Lisa Martinez MCV (RBC) [Entitic vol] 96.6 fL Normal 81.0-99.0 [facility] Comment on above: Performed By: #### C VDTBH #### [facility] [address] [place] [address] Dr. Lisa Martinez MONO # 0.6 103/ul Normal 0.3-0.8 [facility] Comment on above: Performed By: #### C VDTBH #### [facility] [address] [place] [address] Dr. Lisa Martinez Monocytes/100 WBC (Bld) 10.2 % Normal 1.7-12.0 [facility] Comment on above: Performed By: #### C VDTBH #### [facility] [address] [place] [address] Dr. Lisa Martinez NEUT # 4.0 103/ul Normal 1.4-6.5 [facility] Comment on above: Performed By: #### C VDTBH #### [facility] [address] [place] [address] Dr. Lisa Martinez Neutrophils/100 WBC (Bld) 70.5 % Normal 43.0-75.0 [facility] Comment on above: Performed By: #### C VDTBH #### [facility] [address] [place] [address] Dr. Lisa Martinez Platelet mean volume (Bld) [Entitic vol] 10.3 fL Normal 9.5-13.5 [facility] Comment on above: Performed By: #### C VDTBH #### [facility] [address] [address] [address] Lisa Martinez PLT 192 103/ul Normal 150-450 [facility] Comment on above: Performed By: #### C VDTBH #### [facility] [address] [place], [place] [address] Dr. Lisa Martinez RBC 3.24 106/ul Critically low 4.20-5.40 [facility] Comment on above: Performed By: #### C VDTBH #### [facility] [address] [address] [address] Lisa Martinez WBC 5.7 103/ul Normal 4.0-11.0 [facility] Comment on above: Performed By: #### C VDTBH #### [facility] [address] [place] [address] Dr. Lisa Martinez D-DIMERon 11-14-2022 D-DIMER 0.82 mg/L FEU Critically high <=0.59 [facility] Comment on above: Performed By: #### B ORDER ENTRY CLERK, BMP #### [facility] [address] [place] [address] Dr. Lisa Martinez D-DIMER COMMENTS SEE BELOW Normal [facility] Comment on above: Result Comment: Incr [...] and generalized hospitalization. Performed By: #### B ORDER ENTRY CLERK, BMP #### [facility] [address] [place] [address] Dr. Lisa Martinez ECHO LIMITED STUDYon 023 ECHO LIMITED STUDY Patient: FIOR QUINONES Exam Date: 11/14/2022 : 1940 Gender:F Ordering : DR ROBERTO ZIMMERMAN . Admission #: [id number] Family : Order #: [id number] CLICK HERE TO VIEW EXAM ECHOCARDIOGRAM REPORT [...] Marley M.D. on 11/14/2022 at 16:43 [facility] MAGNESIUMon 11-14-2022 Magnesium [Mass/Vol] 2.3 mg/dL Normal 1.8-2.4 [facility] Comment on above: Performed By: #### U RCX #### [facility] [address] [address] [address] Lisa Martinez NM LUNG VENT_PERFon 11-15-19 [...] SADIE GARCIA Date: 2022-11-14 19:11 Normal [facility] OCC BLD IMMUNO SCREENon OCCULT BLOOD Negative Normal NEGATIVE [facility] Comment on above: Performed By: #### B LDCX2 #### [facility] [address] [place], [place] [address] Dr. Lisa Martinez POINT OF CARE GLUCOSEon Glucose [Mass/Vol] 155 mg/dL Critically high 74-106 [facility] Comment on above: Performed By: #### P OCGLUC ####[facility] [address] [place], [place] [address]LfDr. Lisa Martinez Glucose [Mass/Vol] 148 mg/dL Critically high 74-106 [facility] Comment on above: Performed By: #### B LDCX2 #### [facility] [address] [place], [place] [address] Dr. Lisa Martinez Glucose [Mass/Vol] 76 mg/dL Normal 74-106 [facility] Comment on above: Performed By: #### B LDCX2 #### [facility] [address] [address] [address] Lisa Martinez POTASSIUM URINEon 11-14-2022 UR POTASSIUM 21.3 mmol/L Normal [facility] Comment on above: Performed By: #### K U #### [facility] [address] [place] [address] Dr. Lisa Martinez PROF 14(COMP METB)on 023 Albumin [Mass/Vol] 3.3 g/dL Critically low 3.4-5.0 [facility] Comment on above: Performed By: #### U RCX #### [facility] [address] [place] [address] Dr. Lisa Martinez Albumin/Globulin [Mass ratio] 0.7 {ratio} Normal [facility] Comment on above: Performed By: #### U RCX #### [facility] [address] [place] [address] Dr. Lisa Martinez ALP [Catalytic activity/Vol] 72 U/L Normal 46-116 [facility] Comment on above: Performed By: #### U RCX #### [facility] [address] [place] [address] Dr. Lisa Martinez ALT [Catalytic activity/Vol] 16 U/L Normal 14-59 [facility] Comment on above: Performed By: #### U RCX #### [facility] [address] [address] [address] Lisa Martinez Anion gap [Moles/Vol] 13.0 mmol/L Normal [facility] Comment on above: Performed By: #### U RCX #### [facility] [address] [address] [address] Lisa Martinez AST [Catalytic activity/Vol] 13 U/L Critically low 15-37 [facility] Comment on above: Performed By: #### U RCX #### [facility] [address] [place] [address] Dr. Lisa Martinez Bilirubin [Mass/Vol] 0.8 mg/dL Normal 0.2-1.0 [facility] Comment on above: Performed By: #### U RCX #### [facility] [address] [address] [address] Lisa Martinez Calcium [Mass/Vol] 9.0 mg/dL Normal 8.5-10.1 [facility] Comment on above: Performed By: #### U RCX #### [facility] [address] [address] [address] Lisa Martinez Chloride [Moles/Vol] 100 mmol/L Normal 98-107 [facility] Comment on above: Performed By: #### U RCX #### [facility] [address] [address] [address] Lisa Martinez CO2 [Moles/Vol] 30.0 mmol/L Normal 21.0-32.0 [facility] Comment on above: Performed By: #### U RCX #### [facility] [address] [address] [address] Lisa Martinez Creatinine [Mass/Vol] 2.79 mg/dL Critically high 0.55-1.02 [facility] Comment on above: Performed By: #### U RCX #### [facility] [address] [address] [address] Lisa Martinez EGFR-AF [place] 20 mL/min/1.73m2 Critically low >=60 [facility] Comment on above: Performed By: #### U RCX #### [facility] [address] [address] [address] Lisa Martinez EGFR-NON AF [place] 16 mL/min/1.73m2 Critically low >=60 [facility] Comment on above: Performed By: #### U RCX #### [facility] [address] [address] [address] Lisa Martinez Globulin (S) [Mass/Vol] 4.6 g/dL Normal [facility] Comment on above: Performed By: #### U RCX #### [facility] [address] [address] [address] Lisa Martinez Glucose [Mass/Vol] 153 mg/dL Critically high 74-106 [facility] Comment on above: Performed By: #### U RCX #### [facility] [address] [address] [address] Lisa Martinez Potassium [Moles/Vol] 4.0 mmol/L Normal 3.5-5.1 [facility] Comment on above: Performed By: #### U RCX #### [facility] [address] [address] [address] Lisa Martinez Protein [Mass/Vol] 7.9 g/dL Normal 6.4-8.2 [facility] Comment on above: Performed By: #### U RCX #### [facility] [address] [address] [address] Lisa Martinez Sodium [Moles/Vol] 139 mmol/L Normal 136-145 [facility] Comment on above: Performed By: #### U RCX #### [facility] [address] [place] [address] Dr. Lisa Martinez Urea nitrogen [Mass/Vol] 67.0 mg/dL Critically high 7.0-18.0 [facility] Comment on above: Performed By: #### U RCX #### [facility] [address] [place] [address] Dr. Lisa Martinez Urea nitrogen/Creatinine [Mass ratio] 24.0 mg/mg Normal [facility] Comment on above: Performed By: #### U RCX #### [facility] [address] [place] [address] Dr. Lisa Martinez SODIUM RANDOM URINEon 2022 Sodium (U) [Moles/Vol] 122 mmol/L Critically high 30-90 [facility] Comment on above: Performed By: #### B ORDER ENTRY CLERK, BMP #### [facility] [address] [place] [address] Dr. Lisa Martinez T3, TOTAL (TRIIODOTHYRONINE) on 11-14-2022 T3, TOTAL 84 ng/dL Normal 71-180 [facility] Comment on above: Performed By: #### U RCX #### [facility] [address] [place] [address] Dr. Lisa Martinez BNPon 11-13-2022 Natriuretic peptide B (Bld) [Mass/Vol] 05090.0 pg/mL Critically high <=1,800.0 [facility] Comment on above: Performed By: #### B MP, HSTROPN, BNP ####[facility] [address] [id number] Lisa Martinez CARDIAC DONY 3-6on 3 CK [Catalytic activity/Vol] 60 U/L Normal 26-192 [facility] Comment on above: Performed By: #### C MREP ####[facility] [address] [address]Dr. Lisa Martinez CK.MB [Mass/Vol] 0.96 ng/mL Normal <=3.60 [facility] Comment on above: Performed By: #### C MREP ####[facility] [address] [address]Dr. Lisa Martinez HSTROP 16.3 pg/mL Normal 4.0-51.3 [facility] Comment on above: Result Comment: CUT- OFF POINTS HAVE BEEN ESTABLISHED BASED ON THE FOURTH UNIVERSAL DEFINITIONS OF MYOCARDIAL INFARCTION. THE UPPER REFERENCE LIMIT (URL) OF TROPONIN, DEFINED THE 99TH PERCENTILE OF cTnI DISTRIBUTION IN A REFERENCE POPULATION, HAS BEEN CONFIRMED THE DECISION THRESHOLD FOR [place] DIAGNOSIS. Performed By: #### C MREP ####[facility] [address] [place] [address]Dr. Lisa Martinez CK [Catalytic activity/Vol] 60 U/L Normal 26-192 [facility] Comment on above: Performed By: #### C BC #### [facility] [address] [address] [address] Lisa Martinez CK.MB [Mass/Vol] 0.94 ng/mL Normal <=3.60 [facility] Comment on above: Performed By: #### C BC #### [facility] [address] [address] [address] Lisa Martinez HSTROP 15.1 pg/mL Normal 4.0-51.3 [facility] Comment on above: Result Comment: CUT- OFF POINTS HAVE BEEN ESTABLISHED BASED ON THE FOURTH UNIVERSAL DEFINITIONS OF MYOCARDIAL INFARCTION. THE UPPER REFERENCE LIMIT (URL) OF TROPONIN, DEFINED THE 99TH PERCENTILE OF cTnI DISTRIBUTION IN A REFERENCE POPULATION, HAS BEEN CONFIRMED THE DECISION THRESHOLD FOR [place] DIAGNOSIS. Performed By: #### C BC #### [facility] [address] [place] [address] Dr. Lisa Martinez CBC AUTO DIFFon 11-13-2022 BASO # 0.1 103/ul Normal 0.0-0.1 [facility] Comment on above: Performed By: #### C BC #### [facility] [address] [place] [address] Dr. Lisa Martinez Basophils/100 WBC (Bld) 0.6 % Normal 0.2-2.0 [facility] Comment on above: Performed By: #### C BC #### [facility] [address] [place] [address] Dr. Lisa Martinez EO # 0.2 103/ul Normal 0.0-0.7 [facility] Comment on above: Performed By: #### C BC #### [facility] [address] [place] [address] Dr. Lisa Martinez Eosinophils/100 WBC (Bld) 1.8 % Normal 0.9-7.0 [facility] Comment on above: Performed By: #### C BC #### [facility] [address] [place] [address] Dr. Lisa Martinez Erythrocyte distribution width (RBC) [Ratio] 15.0 % Normal 11.0-15.0 [facility] Comment on above: Performed By: #### C BC #### [facility] [address] [place] [address] Dr. Lisa Martinez Hematocrit (Bld) [Volume fraction] 32.9 % Critically low 36.0-48.0 [facility] Comment on above: Performed By: #### C BC #### [facility] [address] [place] [address] Dr. Lisa Martinez Hemoglobin (Bld) [Mass/Vol] 9.8 g/dL Critically low 12.0-16.0 [facility] Comment on above: Performed By: #### C BC #### [facility] [address] [address] [address] Lisa Martinez IG # 0.02 10e3/ul Normal 0.00-0.03 [facility] Comment on above: Performed By: #### C BC #### [facility] [address] [address] [address] Lisa Martinez IG % 0.2 % Normal 0.0-0.5 [facility] Comment on above: Performed By: #### C BC #### [facility] [address] [place] [address] Dr. Lisa Martinez LYMPH # 0.7 103/ul Critically low 1.2-3.[address] [facility] Comment on above: Performed By: #### C BC #### [facility] [address] [place] [address] Dr. Lisa Martinze Lymphocytes/100 WBC (Bld) 7.8 % Critically low 20.5-60.0 [facility] Comment on above: Performed By: #### C BC #### [facility] [address] [place] [address] Dr. Lisa Martinez MANUAL DIFF REQ NO Normal [facility] Comment on above: Performed By: #### C BC #### [facility] [address] [place] [address] Dr. Lisa Martinez MCH (RBC) [Entitic mass] 29.4 pg Normal 26.7-34.0 [facility] Comment on above: Performed By: #### C BC #### [facility] [address] [place] [address] Dr. Lisa Martinez MCHC (RBC) [Mass/Vol] 29.8 g/dL Critically low 29.9-35.2 [facility] Comment on above: Performed By: #### C BC #### [facility] [address] [place] [address] Dr. Lisa Martinez MCV (RBC) [Entitic vol] 98.8 fL Normal 81.0-99.0 [facility] Comment on above: Performed By: #### C BC #### [facility] [address] [address] [address] Lisa Martinez MONO # 0.7 103/ul Normal 0.3-0.8 [facility] Comment on above: Performed By: #### C BC #### [facility] [address] [place] [address] Dr. Lisa Martinez Monocytes/100 WBC (Bld) 7.6 % Normal 1.7-12.0 [facility] Comment on above: Performed By: #### C BC #### [facility] [address] [place] [address] Dr. Lisa Martinez NEUT # 7.0 103/ul Critically high 1.4-6.5 [facility] Comment on above: Performed By: #### C BC #### [facility] [address] [place] [address] Dr. Lisa Martinez Neutrophils/100 WBC (Bld) 82.0 % Critically high 43.0-75.0 [facility] Comment on above: Performed By: #### C BC #### [facility] [address] [place] [address] Dr. Lisa Martinez Platelet mean volume (Bld) [Entitic vol] 10.6 fL Normal 9.5-13.5 [facility] Comment on above: Performed By: #### C BC #### [facility] [address] [place] [address] Dr. Lisa Martinez PLT 209 103/ul Normal 150-450 [facility] Comment on above: Performed By: #### C BC #### [facility] [address] [place] [address] Dr. Lisa Martinez RBC 3.33 106/ul Critically low 4.20-5.40 [facility] Comment on above: Performed By: #### C BC #### [facility] [address] [place] [address] Dr. Lisa Martinez WBC 8.6 103/ul Normal 4.0-11.0 [facility] Comment on above: Performed By: #### C BC #### [facility] [address] [place] [address] Dr. Lisa Martinez LACTATE/LACTIC ACIDon 2022 Lactate [Moles/Vol] 3.4 mmol/L Critically high 0.4-2.0 [facility] Comment on above: Performed By: #### L ACT ####[facility] [address] [address]Dr. Lisa Martinez MAGNESIUMon 11-13-2022 Magnesium [Mass/Vol] 2.6 mg/dL Critically high 1.8-2.4 [facility] Comment on above: Performed By: #### B ORDER ENTRY CLERK, BMP #### [facility] [address] [address] [address] Lisa Martinez PROF CHEM 8 (BAS METB)on Anion gap [Moles/Vol] 15.7 mmol/L Normal [facility] Comment on above: Performed By: #### C BC #### [facility] [address] [address] [address] Lisa Martinez Calcium [Mass/Vol] 9.1 mg/dL Normal 8.5-10.1 [facility] Comment on above: Performed By: #### C BC #### [facility] [address] [address] [address] Lisa Martinez Chloride [Moles/Vol] 103 mmol/L Normal 98-107 [facility] Comment on above: Performed By: #### C BC #### [facility] [address] [address] [address] Lisa Martinez CO2 [Moles/Vol] 27.2 mmol/L Normal 21.0-32.0 [facility] Comment on above: Performed By: #### C BC #### [facility] [address] [address] [address] Lisa Martinez Creatinine [Mass/Vol] 2.91 mg/dL Critically high 0.55-1.02 [facility] Comment on above: Performed By: #### C BC #### [facility] [address] [address] [address] Lisa Martinez EGFR-AF [place] 19 mL/min/1.73m2 Critically low >=60 [facility] Comment on above: Performed By: #### C BC #### [facility] [address] [place], [place] [address] Dr. Lisa Martinez EGFR-NON AF [place] 15 mL/min/1.73m2 Critically low >=60 [facility] Comment on above: Performed By: #### C BC #### [facility] [address] [address] [address] Lisa Martinez Glucose [Mass/Vol] 172 mg/dL Critically high 74-106 [facility] Comment on above: Performed By: #### C BC #### [facility] [address] [place], [place] [address] Dr. Lisa Martinez Potassium [Moles/Vol] 4.9 mmol/L Normal 3.5-5.1 [facility] Comment on above: Performed By: #### C BC #### [facility] [address] [address] [address] Lisa Martniez Sodium [Moles/Vol] 141 mmol/L Normal 136-145 [facility] Comment on above: Performed By: #### C BC #### [facility] [address] [address] [address] Lisa Martinez Urea nitrogen [Mass/Vol] 64.0 mg/dL Critically high 7.0-18.0 [facility] Comment on above: Performed By: #### C BC #### [facility] [address] [address] [address] Lisa Martinez Urea nitrogen/Creatinine [Mass ratio] 22.0 mg/mg Normal [facility] Comment on above: Performed By: #### C BC #### [facility] [address] [place], [place] [address] Dr. Lisa Martinez Anion gap [Moles/Vol] 17.4 mmol/L Normal [facility] Comment on above: Performed By: #### B MP, HSTROPN, BNP ####[facility] [address] [place], [place] [address]UsDr. Lisa Martinez Calcium [Mass/Vol] 9.1 mg/dL Normal 8.5-10.1 [facility] Comment on above: Performed By: #### B MP, HSTROPN, BNP ####[facility] [address] [address]Dr. Lisa Martinez Chloride [Moles/Vol] 104 mmol/L Normal 98-107 [facility] Comment on above: Performed By: #### B MP, HSTROPN, BNP ####[facility] [address] [address]Dr. Lisa Martinez CO2 [Moles/Vol] 26.9 mmol/L Normal 21.0-32.0 [facility] Comment on above: Performed By: #### B MP, HSTROPN, BNP ####[facility] [address] [place], [place] [address]Dr. Lisa Martinez Creatinine [Mass/Vol] 3.12 mg/dL Critically high 0.55-1.02 [facility] Comment on above: Performed By: #### B MP, HSTROPN, BNP ####[facility] [address] [place], [place] [address]Dr. Lisa Martinez EGFR-AF [place] 17 mL/min/1.73m2 Critically low >=60 [facility] Comment on above: Performed By: #### B MP, HSTROPN, BNP ####[facility] [address] [address]Dr. Lisa Martinez EGFR-NON AF [place] 14 mL/min/1.73m2 Critically low >=60 [facility] Comment on above: Performed By: #### B MP, HSTROPN, BNP ####[facility] [address] [address]Dr. Lisa Martinez Glucose [Mass/Vol] 131 mg/dL Critically high 74-106 [facility] Comment on above: Performed By: #### B MP, HSTROPN, BNP ####[facility] [address] [address]Dr. Lisa Martinez Potassium [Moles/Vol] 5.3 mmol/L Critically high 3.5-5.1 [facility] Comment on above: Performed By: #### B MP, HSTROPN, BNP ####[facility] [address] [place], [place] [address]Fy. Lisa Martinez Sodium [Moles/Vol] 143 mmol/L Normal 136-145 [facility] Comment on above: Performed By: #### B MP, HSTROPN, BNP ####[facility] [address] [place], [place] [address]Zx. Lisa Martinez Urea nitrogen [Mass/Vol] 59.0 mg/dL Critically high 7.0-18.0 [facility] Comment on above: Performed By: #### B MP, HSTROPN, BNP ####[facility] [address] [id number]. Lisa Martinez Urea nitrogen/Creatinine [Mass ratio] 18.9 mg/mg Normal [facility] Comment on above: Performed By: #### B MP, HSTROPN, BNP ####[facility] [address] [id number]. Lisa Martinez SYMPTOMATIC COVID-19 ANTIGEN on 11-13-2022 EUA Statement SEE BELOW Normal [facility] Comment on above: Result Comment: This [...] sooner. Performed By: #### C VDTBH #### [facility] [address] [place], [place] [address] Dr. Lisa Martinez SARS-CoV-2 (COVID-19) RNA RACIEL+probe Ql (Unsp spec) Negative Normal NEGATIVE [facility] Comment on above: Performed By: #### C VDTBH #### [facility] [address] [address] [address] Lisa Martinez T4on 11-13-2022 T4 [Mass/Vol] 6.70 ug/dL Normal 4.80-13.90 [facility] Comment on above: Performed By: #### B ORDER ENTRY CLERK, BMP #### [facility] [address] [address] [address] Lisa Martinez TROPONIN, HIGH SENSITIVITYon 11-13-2022 HSTROP 17.9 pg/mL Normal 4.0-51.3 [facility] Comment on above: Result Comment: CUT- OFF POINTS HAVE BEEN ESTABLISHED BASED ON THE FOURTH UNIVERSAL DEFINITIONS OF MYOCARDIAL INFARCTION. THE UPPER REFERENCE LIMIT (URL) OF TROPONIN, DEFINED THE 99TH PERCENTILE OF cTnI DISTRIBUTION IN A REFERENCE POPULATION, HAS BEEN CONFIRMED THE DECISION THRESHOLD FOR [place] DIAGNOSIS. Performed By: #### B MP, HSTROPN, BNP ####[facility] [address] [address]Dr. Lisa Martinez TSHon 11-13-2022 TSH 5.233 uIU/mL Critically high 0.358-3.740 [facility] Comment on above: Performed By: #### B ORDER ENTRY CLERK, BMP #### [facility] [address] [address] [address] Lisa Martinez UA RANDOM W/MICROSCOPICon BACTERIA SMALL Abnormal NONE SEEN [facility] Comment on above: Performed By: #### K U #### [facility] [address] [place] [address] Dr. Lisa Martinez Bilirubin Ql (U) Negative Normal NEGATIVE [facility] Comment on above: Performed By: #### K U #### [facility] [address] [address] [address] Lisa Martinez CAST SEEN Abnormal NONE SEEN [facility] Comment on above: Performed By: #### K U #### [facility] [address] [address] [address] Lisa Martinez Clarity (U) CLEAR Normal CLEAR [facility] Comment on above: Performed By: #### K U #### [facility] [address] [address] [address] Lisa Martinez Color (U) LT. YELLOW Normal YELLOW [facility] Comment on above: Performed By: #### K U #### [facility] [address] [place] [address] Dr. Lisa Martinez Crystals LM Nom (Urine sed) NONE SEEN Normal NONE SEEN [facility] Comment on above: Performed By: #### K U #### [facility] [address] [place] [address] Dr. Lisa Martinez Epithelial cells LM Ql (Urine sed) FEW Abnormal NONE SEEN /RARE [facility] Comment on above: Performed By: #### K U #### [facility] [address] [place] [address] Dr. Lisa Martinez Glucose Ql (U) Negative Normal NEGATIVE [facility] Comment on above: Performed By: #### K U #### [facility] [address] [place] [address] Dr. Lisa Martinez Hemoglobin Ql (U) Negative Normal NEGATIVE [facility] Comment on above: Performed By: #### K U #### [facility] [address] [place] [address] Dr. Lisa Martinez HYALINE CAST FEW Normal [facility] Comment on above: Performed By: #### K U #### [facility] [address] [place] [address] Dr. Lisa Martinez Ketones Ql (U) Negative Normal NEGATIVE [facility] Comment on above: Performed By: #### K U #### [facility] [address] [place] [address] Dr. Lisa Martinez LEUKOCYTES Negative Normal NEGATIVE [facility] Comment on above: Performed By: #### K U #### [facility] [address] [place] [address] Dr. Lisa Martinez MUCOUS NONE SEEN Normal NONE SEEN [facility] Comment on above: Performed By: #### K U #### [facility] [address] [place] [address] Dr. Lisa Martinez Nitrite Ql (U) Negative Normal NEGATIVE [facility] Comment on above: Performed By: #### K U #### [facility] [address] [place] [address] Dr. Lisa Martinez pH (U) 5.5 [pH] Normal 5-9 [facility] Comment on above: Performed By: #### K U #### [facility] [address] [place] [address] Dr. Lisa Martinez RBC NONE SEEN Abnormal 0-2 [facility] Comment on above: Performed By: #### K U #### [facility] [address] [place] [address] Dr. Lisa Martinez SPEC GRAVITY 1.010 Normal 1.005-<=1.0 25 [facility] Comment on above: Performed By: #### K U #### [facility] [address] [place] [address] Dr. Lisa Martinez UA PROTEIN Negative Normal NEGATIVE/ TRACE [facility] Comment on above: Performed By: #### K U #### [facility] [address] [place] [address] Dr. Lisa Martinez Urobilinogen Qn (U) 0.2 {Mike'U}/dL Normal 0.2 - 1. 0 [facility] Comment on above: Performed By: #### K U #### [facility] [address] [place] [address] Dr. Lisa Martinez WBC NONE SEEN Normal NONE SEEN [facility] Comment on above: Performed By: #### K U #### [facility] [address] [place] [address] Dr. Lisa Martinez US KIDNEYS BLADDERon 023 [...] Gela ARANDA Date: 2022-11-13 16:01 Normal [facility] XR CHEST 1 Von 11-13-2022 XR [...] by: MEENA WOOTEN Date: 2022-11-13 12:20 Normal [facility] PROF CHEM 8 (BAS METB)on Anion gap [Moles/Vol] 13.5 mmol/L Normal [facility] Comment on above: Performed By: #### B MP ####[facility] [address] [address]Dr. Lisa Martinez Calcium [Mass/Vol] 9.2 mg/dL Normal 8.5-10.1 [facility] Comment on above: Performed By: #### B MP ####[facility] [address] [id number]. Lisa Martinez Chloride [Moles/Vol] 108 mmol/L Critically high 98-107 [facility] Comment on above: Performed By: #### B MP ####[facility] [address] [id number]. Lisa Martinez CO2 [Moles/Vol] 25.6 mmol/L Normal 21.0-32.0 [facility] Comment on above: Performed By: #### B MP ####[facility] [address] [address]Dr. Lisa Martinez Creatinine [Mass/Vol] 1.53 mg/dL Critically high 0.55-1.02 [facility] Comment on above: Performed By: #### B MP ####[facility] [address] [address]Dr. Lisa Martinez EGFR-AF [place] 39 mL/min/1.73m2 Critically low >=60 [facility] Comment on above: Performed By: #### B MP ####[facility] [address] [place], [place] [address]Dr. Lisa Martinez EGFR-NON AF [place] 32 mL/min/1.73m2 Critically low >=60 [facility] Comment on above: Performed By: #### B MP ####[facility] [address] [place], [place] [address]Dr. Lisa Martinez Glucose [Mass/Vol] 69 mg/dL Critically low 74-106 [facility] Comment on above: Performed By: #### B MP ####[facility] [address] [place], [place] [address]Dr. Lisa Martinez Potassium [Moles/Vol] 5.1 mmol/L Normal 3.5-5.1 [facility] Comment on above: Performed By: #### B MP ####[facility] [address] [place], [place] [address]Dr. Lisa Martinez Sodium [Moles/Vol] 142 mmol/L Normal 136-145 [facility] Comment on above: Performed By: #### B MP ####[facility] [address] [place], [place] [address]Dr. Lisa Martinez Urea nitrogen [Mass/Vol] 32.0 mg/dL Critically high 7.0-18.0 [facility] Comment on above: Performed By: #### B MP ####[facility] [address] [place], [place] [address]Dr. Lisa Martinez Urea nitrogen/Creatinine [Mass ratio] 20.9 mg/mg Normal [facility] Comment on above: Performed By: #### B MP ####[facility] [address] [address]Dr. Lisa Martinez BNPon 10-08-2022 Natriuretic peptide B (Bld) [Mass/Vol] 3489.0 pg/mL Critically high <=1,800.0 [facility] Comment on above: Performed By: #### B ORDER ENTRY CLERK, BMP #### [facility] [address] [place] [address] Dr. Lisa Martinez CBC AUTO DIFFon 10-08-2022 BASO # 0.0 103/ul Normal 0.0-0.1 [facility] Comment on above: Performed By: #### B ORDER ENTRY CLERK, BMP #### [facility] [address] [place] [address] Dr. Lisa Martinez Basophils/100 WBC (Bld) 0.6 % Normal 0.2-2.0 [facility] Comment on above: Performed By: #### B ORDER ENTRY CLERK, BMP #### [facility] [address] [place] [address] Dr. Lisa Martinez EO # 0.2 103/ul Normal 0.0-0.7 [facility] Comment on above: Performed By: #### B ORDER ENTRY CLERK, BMP #### [facility] [address] [place] [address] Dr. Lisa Martinez Eosinophils/100 WBC (Bld) 3.5 % Normal 0.9-7.0 [facility] Comment on above: Performed By: #### B ORDER ENTRY CLERK, BMP #### [facility] [address] [place] [address] Dr. Lisa Martinez Erythrocyte distribution width (RBC) [Ratio] 15.5 % Critically high 11.0-15.0 [facility] Comment on above: Performed By: #### B ORDER ENTRY CLERK, BMP #### [facility] [address] [place] [address] Dr. Lisa Martinez Hematocrit (Bld) [Volume fraction] 31.8 % Critically low 36.0-48.0 [facility] Comment on above: Performed By: #### B ORDER ENTRY CLERK, BMP #### [facility] [address] [place] [address] Dr. Lisa Martinez Hemoglobin (Bld) [Mass/Vol] 9.8 g/dL Critically low 12.0-16.0 [facility] Comment on above: Performed By: #### B ORDER ENTRY CLERK, BMP #### [facility] [address] [place] [address] Dr. Lisa Martinez IG # 0.02 10e3/ul Normal 0.00-0.03 [facility] Comment on above: Performed By: #### B ORDER ENTRY CLERK, BMP #### [facility] [address] [place] [address] Dr. Lisa Martinez IG % 0.3 % Normal 0.0-0.5 [facility] Comment on above: Performed By: #### B ORDER ENTRY CLERK, BMP #### [facility] [address] [place] [address] Dr. Lisa Martinez LYMPH # 0.9 103/ul Critically low 1.2-3.[address] [facility] Comment on above: Performed By: #### B ORDER ENTRY CLERK, BMP #### [facility] [address] [place] [address] Dr. Lisa Martinez Lymphocytes/100 WBC (Bld) 14.0 % Critically low 20.5-60.0 [facility] Comment on above: Performed By: #### B ORDER ENTRY CLERK, BMP #### [facility] [address] [place] [address] Dr. Lisa Martinez MANUAL DIFF REQ NO Normal [facility] Comment on above: Performed By: #### B ORDER ENTRY CLERK, BMP #### [facility] [address] [place] [address] Dr. Lisa Martinez MCH (RBC) [Entitic mass] 29.9 pg Normal 26.7-34.0 [facility] Comment on above: Performed By: #### B ORDER ENTRY CLERK, BMP #### [facility] [address] [place] [address] Dr. Lisa Martinez MCHC (RBC) [Mass/Vol] 30.8 g/dL Normal 29.9-35.2 [facility] Comment on above: Performed By: #### B ORDER ENTRY CLERK, BMP #### [facility] [address] [address] [address] Lisa Martinez MCV (RBC) [Entitic vol] 97.0 fL Normal 81.0-99.0 [facility] Comment on above: Performed By: #### B ORDER ENTRY CLERK, BMP #### [facility] [address] [place] [address] Dr. Lisa Martinez MONO # 0.8 103/ul Normal 0.3-0.8 [facility] Comment on above: Performed By: #### B ORDER ENTRY CLERK, BMP #### [facility] [address] [place] [address] Dr. Lisa Martinez Monocytes/100 WBC (Bld) 11.9 % Normal 1.7-12.0 [facility] Comment on above: Performed By: #### B ORDER ENTRY CLERK, BMP #### [facility] [address] [place] [address] Dr. Lisa Martinez NEUT # 4.4 103/ul Normal 1.4-6.5 [facility] Comment on above: Performed By: #### B ORDER ENTRY CLERK, BMP #### [facility] [address] [place] [address] Dr. Lisa Martinez Neutrophils/100 WBC (Bld) 69.7 % Normal 43.0-75.0 [facility] Comment on above: Performed By: #### B ORDER ENTRY CLERK, BMP #### [facility] [address] [place] [address] Dr. Lisa Martinez Platelet mean volume (Bld) [Entitic vol] 10.3 fL Normal 9.5-13.5 [facility] Comment on above: Performed By: #### B ORDER ENTRY CLERK, BMP #### [facility] [address] [place] [address] Dr. Lisa Martinez PLT 223 103/ul Normal 150-450 [facility] Comment on above: Performed By: #### B ORDER ENTRY CLERK, BMP #### [facility] [address] [place] [address] Dr. Lisa Martinez RBC 3.28 106/ul Critically low 4.20-5.40 [facility] Comment on above: Performed By: #### B ORDER ENTRY CLERK, BMP #### [facility] [address] [address] [address] Lisa Martinez WBC 6.3 103/ul Normal 4.0-11.0 [facility] Comment on above: Performed By: #### B ORDER ENTRY CLERK, BMP #### [facility] [address] [address] [address] Lisa Martinez DIGOXINon 10-08-2022 DIG 1.6 ng/mL Normal 0.9-2.0 [facility] Comment on above: Performed By: #### D IG ####[facility] [address] [address]Dr. Lisa Martinez POINT OF CARE GLUCOSEon Glucose [Mass/Vol] 226 mg/dL Critically high 74-106 [facility] Comment on above: Performed By: #### P OCGLUC ####[facility] [address] [address]Dr. Lisa Martinez Glucose [Mass/Vol] 107 mg/dL Critically high 74-106 [facility] Comment on above: Performed By: #### B LDCX2 #### [facility] [address] [place] [address] Dr. Lisa Martinez PROF CHEM 8 (BAS METB)on Anion gap [Moles/Vol] 11.7 mmol/L Normal [facility] Comment on above: Performed By: #### B ORDER ENTRY CLERK, BMP #### [facility] [address] [address] [address] Lisa Martinez Calcium [Mass/Vol] 9.2 mg/dL Normal 8.5-10.1 [facility] Comment on above: Performed By: #### B ORDER ENTRY CLERK, BMP #### [facility] [address] [place] [address] Dr. Lisa Martinez Chloride [Moles/Vol] 102 mmol/L Normal 98-107 [facility] Comment on above: Performed By: #### B ORDER ENTRY CLERK, BMP #### [facility] [address] [place] [address] Dr. Lisa Martinez CO2 [Moles/Vol] 29.3 mmol/L Normal 21.0-32.0 [facility] Comment on above: Performed By: #### B ORDER ENTRY CLERK, BMP #### [facility] [address] [place] [address] Dr. Lisa Martinez Creatinine [Mass/Vol] 1.27 mg/dL Critically high 0.55-1.02 [facility] Comment on above: Performed By: #### B ORDER ENTRY CLERK, BMP #### [facility] [address] [place] [address] Dr. Lisa Martinez EGFR-AF [place] 49 mL/min/1.73m2 Critically low >=60 [facility] Comment on above: Performed By: #### B ORDER ENTRY CLERK, BMP #### [facility] [address] [place] [address] Dr. Lisa Martinez EGFR-NON AF [place] 40 mL/min/1.73m2 Critically low >=60 [facility] Comment on above: Performed By: #### B ORDER ENTRY CLERK, BMP #### [facility] [address] [place] [address] Dr. Lisa Martinez Glucose [Mass/Vol] 98 mg/dL Normal 74-106 [facility] Comment on above: Performed By: #### B ORDER ENTRY CLERK, BMP #### [facility] [address] [place] [address] Dr. Lisa Martinez Potassium [Moles/Vol] 4.0 mmol/L Normal 3.5-5.1 [facility] Comment on above: Performed By: #### B ORDER ENTRY CLERK, BMP #### [facility] [address] [place] [address] Dr. Lisa Martinez Sodium [Moles/Vol] 139 mmol/L Normal 136-145 [facility] Comment on above: Performed By: #### B ORDER ENTRY CLERK, BMP #### [facility] [address] [place] [address] Dr. Lisa Martinez Urea nitrogen [Mass/Vol] 26.0 mg/dL Critically high 7.0-18.0 [facility] Comment on above: Performed By: #### B ORDER ENTRY CLERK, BMP #### [facility] [address] [place] [address] Dr. Lisa Martinez Urea nitrogen/Creatinine [Mass ratio] 20.5 mg/mg Normal [facility] Comment on above: Performed By: #### B ORDER ENTRY CLERK, BMP #### [facility] [address] [place] [address] Dr. Lisa Martinez BNPon 10-07-2022 Natriuretic peptide B (Bld) [Mass/Vol] 6039.0 pg/mL Critically high <=1,800.0 [facility] Comment on above: Performed By: #### B ORDER ENTRY CLERK ####[facility] [address] [place] [address]Dr. Lisa Martinez CBC AUTO DIFFon 10-07-2022 BASO # 0.1 103/ul Normal 0.0-0.1 [facility] Comment on above: Performed By: #### K U #### [facility] [address] [place] [address] Dr. iLsa Martinez Basophils/100 WBC (Bld) 0.7 % Normal 0.2-2.0 [facility] Comment on above: Performed By: #### K U #### [facility] [address] [place] [address] Dr. Lisa Martinez EO # 0.3 103/ul Normal 0.0-0.7 [facility] Comment on above: Performed By: #### K U #### [facility] [address] [place] [address] Dr. Lisa Martinez Eosinophils/100 WBC (Bld) 4.0 % Normal 0.9-7.0 [facility] Comment on above: Performed By: #### K U #### [facility] [address] [place] [address] Dr. Lisa Martinez Erythrocyte distribution width (RBC) [Ratio] 15.6 % Critically high 11.0-15.0 [facility] Comment on above: Performed By: #### K U #### [facility] [address] [place] [address] Dr. Lisa Martinez Hematocrit (Bld) [Volume fraction] 34.0 % Critically low 36.0-48.0 [facility] Comment on above: Performed By: #### K U #### [facility] [address] [address] [address] Lisa Martinez Hemoglobin (Bld) [Mass/Vol] 10.4 g/dL Critically low 12.0-16.0 [facility] Comment on above: Performed By: #### K U #### [facility] [address] [address] [address] Lisa Martinez IG # 0.02 10e3/ul Normal 0.00-0.03 [facility] Comment on above: Performed By: #### K U #### [facility] [address] [address] [address] Lisa Martinez IG % 0.3 % Normal 0.0-0.5 [facility] Comment on above: Performed By: #### K U #### [facility] [address] [address] [address] Lisa Martinez LYMPH # 1.0 103/ul Critically low 1.2-3.[address] [facility] Comment on above: Performed By: #### K U #### [facility] [address] [address] [address] Lisa Martinez Lymphocytes/100 WBC (Bld) 14.9 % Critically low 20.5-60.0 [facility] Comment on above: Performed By: #### K U #### [facility] [address] [address] [address] Lisa Martinez MANUAL DIFF REQ NO Normal [facility] Comment on above: Performed By: #### K U #### [facility] [address] [address] [address] Lisa Martinez MCH (RBC) [Entitic mass] 29.8 pg Normal 26.7-34.0 [facility] Comment on above: Performed By: #### K U #### [facility] [address] [address] [address] Lisa Martinez MCHC (RBC) [Mass/Vol] 30.6 g/dL Normal 29.9-35.2 [facility] Comment on above: Performed By: #### K U #### [facility] [address] [address] [address] Lisa Martinez MCV (RBC) [Entitic vol] 97.4 fL Normal 81.0-99.0 [facility] Comment on above: Performed By: #### K U #### [facility] [address] [address] [address] Lisa Martinez MONO # 0.6 103/ul Normal 0.3-0.8 [facility] Comment on above: Performed By: #### K U #### [facility] [address] [address] [address] Lisa Martinez Monocytes/100 WBC (Bld) 8.8 % Normal 1.7-12.0 [facility] Comment on above: Performed By: #### K U #### [facility] [address] [place] [address] Dr. Lisa Martinez NEUT # 4.9 103/ul Normal 1.4-6.5 [facility] Comment on above: Performed By: #### K U #### [facility] [address] [address] [address] Lisa Martinez Neutrophils/100 WBC (Bld) 71.3 % Normal 43.0-75.0 [facility] Comment on above: Performed By: #### K U #### [facility] [address] [place] [address] Dr. Lisa Martinez Platelet mean volume (Bld) [Entitic vol] 10.5 fL Normal 9.5-13.5 [facility] Comment on above: Performed By: #### K U #### [facility] [address] [address] [address] Lisa Martinez PLT 251 103/ul Normal 150-450 [facility] Comment on above: Performed By: #### K U #### [facility] [address] [address] [address] Lisa Martinez RBC 3.49 106/ul Critically low 4.20-5.40 [facility] Comment on above: Performed By: #### K U #### [facility] [address] [place] [address] Dr. Lisa Martinez WBC 6.8 103/ul Normal 4.0-11.0 [facility] Comment on above: Performed By: #### K U #### [facility] [address] [place] [address] Dr. Lisa Martinez DIGOXINon 10-07-2022 DIG 1.7 ng/mL Normal 0.9-2.0 [facility] Comment on above: Performed By: #### U RCX #### [facility] [address] [place] [address] Dr. Lisa Martinez POINT OF CARE GLUCOSEon Glucose [Mass/Vol] 185 mg/dL Critically high -106 [facility] Comment on above: Performed By: #### B ORDER ENTRY CLERK, BMP #### [facility] [address] [place] [address] Dr. Lisa Martinez Glucose [Mass/Vol] 120 mg/dL Critically high [facility]106 [facility] Comment on above: Performed By: #### C VDTBH #### [facility] [address] [place] [address] Dr. Lisa Martinez Glucose [Mass/Vol] 218 mg/dL Critically high [address] [place] [address] Comment on above: Performed By: #### B LDCX2 #### [facility] [address] [place] [address] Dr. Lisa Martinez PROF CHEM 8 (BAS METB)on Anion gap [Moles/Vol] 12.3 mmol/L Normal [facility] Comment on above: Performed By: #### B ORDER ENTRY CLERK, BMP #### [facility] [address] [place] [address] Dr. Lisa Martinez Calcium [Mass/Vol] 9.3 mg/dL Normal 8.5-10.1 [facility] Comment on above: Performed By: #### B ORDER ENTRY CLERK, BMP #### [facility] [address] [place] [address] Dr. Lisa Martinez Chloride [Moles/Vol] 102 mmol/L Normal 98-107 [facility] Comment on above: Performed By: #### B ORDER ENTRY CLERK, BMP #### [facility] [address] [address] [address] Lisa Martinez CO2 [Moles/Vol] 30.8 mmol/L Normal 21.0-32.0 [facility] Comment on above: Performed By: #### B ORDER ENTRY CLERK, BMP #### [facility] [address] [address] [address] Lisa Martinez Creatinine [Mass/Vol] 1.45 mg/dL Critically high 0.55-1.02 [facility] Comment on above: Performed By: #### B ORDER ENTRY CLERK, BMP #### [facility] [address] [address] [address] Lisa Martinez EGFR-AF [place] 42 mL/min/1.73m2 Critically low >=60 [facility] Comment on above: Performed By: #### B ORDER ENTRY CLERK, BMP #### [facility] [address] [place] [address] Dr. Lisa Martinez EGFR-NON AF [place] 34 mL/min/1.73m2 Critically low >=60 [facility] Comment on above: Performed By: #### B ORDER ENTRY CLERK, BMP #### [facility] [address] [place] [address] Dr. Lisa Martinez Glucose [Mass/Vol] 103 mg/dL Normal 74-106 [facility] Comment on above: Performed By: #### B ORDER ENTRY CLERK, BMP #### [facility] [address] [address] [address] Lisa Martinez Potassium [Moles/Vol] 4.1 mmol/L Normal 3.5-5.1 [facility] Comment on above: Performed By: #### B ORDER ENTRY CLERK, BMP #### [facility] [address] [address] [address] Lisa Martinez Sodium [Moles/Vol] 141 mmol/L Normal 136-145 [facility] Comment on above: Performed By: #### B ORDER ENTRY CLERK, BMP #### [facility] [address] [address] [address] Lisa Martinez Urea nitrogen [Mass/Vol] 26.0 mg/dL Critically high 7.0-18.0 [facility] Comment on above: Performed By: #### B ORDER ENTRY CLERK, BMP #### [facility] [address] [address] [address] Lisa Martinez Urea nitrogen/Creatinine [Mass ratio] 17.9 mg/mg Normal [facility] Comment on above: Performed By: #### B ORDER ENTRY CLERK, BMP #### [facility] [address] [address] [address] Lisa Martinez BNPon 10-06-2022 Natriuretic peptide B (Bld) [Mass/Vol] 6211.0 pg/mL Critically high <=1,800.0 [facility] Comment on above: Performed By: #### C MADM, LIVER, CMP, BNP ####[facility] [address] [address]Dr. Lisa Martinez CARDIAC DONY ADMITon 023 CK [Catalytic activity/Vol] 50 U/L Normal 26-192 [facility] Comment on above: Performed By: #### C MADM, LIVER, CMP, BNP ####[facility] [address] [address]DrIngrid Martinez CK.MB [Mass/Vol] 0.89 ng/mL Normal <=3.60 [facility] Comment on above: Performed By: #### C MADM, LIVER, CMP, BNP ####[facility] [address] [place] [address]DrIngrid Martinez HSTROP 19.1 pg/mL Normal 4.0-51.3 [facility] Comment on above: Result Comment: CUT- OFF POINTS HAVE BEEN ESTABLISHED BASED ON THE FOURTH UNIVERSAL DEFINITIONS OF MYOCARDIAL INFARCTION. THE UPPER REFERENCE LIMIT (URL) OF TROPONIN, DEFINED THE 99TH PERCENTILE OF cTnI DISTRIBUTION IN A REFERENCE POPULATION, HAS BEEN CONFIRMED THE DECISION THRESHOLD FOR [place] DIAGNOSIS. Performed By: #### C MADM, LIVER, CMP, BNP ####[facility] [address] [place] [address]DrIngrid Martinez LISSY 56 ng/mL Normal 9-82 [facility] Comment on above: Performed By: #### C MADM, LIVER, CMP, BNP ####[facility] [address] [place], [place] [address]Dr. Lisa Martinez CBC AUTO DIFFon 10-06-2022 BASO # 0.1 103/ul Normal 0.0-0.1 [facility] Comment on above: Performed By: #### C BC #### [facility] [id number] Lisa Martinez Basophils/100 WBC (Bld) 0.7 % Normal 0.2-2.0 [facility] Comment on above: Performed By: #### C BC #### [facility] [address] [address] [address] Lisa Martinez EO # 0.2 103/ul Normal 0.0-0.7 [facility] Comment on above: Performed By: #### C BC #### [facility] [address] [address] [address] Lisa Martinez Eosinophils/100 WBC (Bld) 2.0 % Normal 0.9-7.0 [facility] Comment on above: Performed By: #### C BC #### [facility] [address] [address] [address] Lisa Martinez Erythrocyte distribution width (RBC) [Ratio] 15.7 % Critically high 11.0-15.0 [facility] Comment on above: Performed By: #### C BC #### [facility] [address] [address] [address] Lisa Martinez Hematocrit (Bld) [Volume fraction] 32.4 % Critically low 36.0-48.0 [facility] Comment on above: Performed By: #### C BC #### [facility] [address] [id number] Lisa Martinez Hemoglobin (Bld) [Mass/Vol] 10.0 g/dL Critically low 12.0-16.0 [facility] Comment on above: Performed By: #### C BC #### [facility] [address] [address] [address] Lisa Martinez IG # 0.02 10e3/ul Normal 0.00-0.03 [facility] Comment on above: Performed By: #### C BC #### [facility] [address] [address] [address] Lisa Martinez IG % 0.3 % Normal 0.0-0.5 [facility] Comment on above: Performed By: #### C BC #### [facility] [address] [place] [address] Dr. Lisa Martinez LYMPH # 0.7 103/ul Critically low 1.2-3.[address] [facility] Comment on above: Performed By: #### C BC #### [facility] [address] [place] [address] Dr. Lisa Martinez Lymphocytes/100 WBC (Bld) 9.2 % Critically low 20.5-60.0 [facility] Comment on above: Performed By: #### C BC #### [facility] [address] [place] [address] Dr. Lisa Martinez MANUAL DIFF REQ NO Normal [facility] Comment on above: Performed By: #### C BC #### [facility] [address] [place] [address] Dr. Lisa Martinez MCH (RBC) [Entitic mass] 29.8 pg Normal 26.7-34.0 [facility] Comment on above: Performed By: #### C BC #### [facility] [address] [place] [address] Dr. Lisa Martinez MCHC (RBC) [Mass/Vol] 30.9 g/dL Normal 29.9-35.2 [facility] Comment on above: Performed By: #### C BC #### [facility] [address] [place] [address] Dr. Lisa Martinez MCV (RBC) [Entitic vol] 96.4 fL Normal 81.0-99.0 [facility] Comment on above: Performed By: #### C BC #### [facility] [address] [place] [address] Dr. Lisa Martinez MONO # 0.5 103/ul Normal 0.3-0.8 [facility] Comment on above: Performed By: #### C BC #### [facility] [address] [address] [address] Lisa Martinez Monocytes/100 WBC (Bld) 6.4 % Normal 1.7-12.0 [facility] Comment on above: Performed By: #### C BC #### [facility] [address] [address] [address] Lisa Martinez NEUT # 6.2 103/ul Normal 1.4-6.5 [facility] Comment on above: Performed By: #### C BC #### [facility] [address] [address] [address] Lisa Martinez Neutrophils/100 WBC (Bld) 81.4 % Critically high 43.0-75.0 [facility] Comment on above: Performed By: #### C BC #### [facility] [address] [place] [address] Dr. Lisa Martinez Platelet mean volume (Bld) [Entitic vol] 10.2 fL Normal 9.5-13.5 [facility] Comment on above: Performed By: #### C BC #### [facility] [address] [place] [address] Dr. Lisa Martinez PLT 228 103/ul Normal 150-450 [facility] Comment on above: Performed By: #### C BC #### [facility] [address] [place] [address] Dr. Lisa Martinez RBC 3.36 106/ul Critically low 4.20-5.40 [facility] Comment on above: Performed By: #### C BC #### [facility] [address] [place] [address] Dr. Lisa Martinez WBC 7.6 103/ul Normal 4.0-11.0 [facility] Comment on above: Performed By: #### C BC #### [facility] [address] [place] [address] Dr. Lisa Martinez CTA CHEST WO W [...] JENNY MARQUEZ Date: 2022-10-06 14:18 Normal [facility] Covid-19 PCR (CVDTB)on 09-08 SARS-CoV-2 (COVID-19) RNA RACIEL+probe Ql (Unsp spec) Not detected Normal NOT DETECTED [facility] Comment on above: Result Comment: When [...] for this test is supported by the Behavioral Interventionist of Health and Human Service's declaration that [...] be used). Performed By: #### C VDTBH ####[facility] [address] [address]DrIngrid Martinez DIGOXINon 10-06-2022 DIG 2.3 ng/mL Critically high 0.9-2.0 [facility] Comment on above: Performed By: #### C BC #### [facility] [address] [place] [address] Dr. Lisa Martinez LIVER PROFILEon 10-06-2022 BILI, CONJUGATED 0.4 mg/dL Critically high 0.0-0.2 [facility] Comment on above: Performed By: #### C MADM, LIVER, CMP, BNP ####[facility] [address] [address]Dr. Lisa Martinez POINT OF CARE GLUCOSEon 09-08 Glucose [Mass/Vol] 154 mg/dL Critically high 74-106 [facility] Comment on above: Performed By: #### B ORDER ENTRY CLERK, BMP #### [facility] [address] [place] [address] Dr. Lisa Martinez Glucose [Mass/Vol] 77 mg/dL Normal 74-106 [facility] Comment on above: Performed By: #### B ORDER ENTRY CLERK, BMP #### [facility] [address] [place] [address] Dr. Lisa Martinez PROF 14(COMP METB)on 023 Albumin [Mass/Vol] 3.5 g/dL Normal 3.4-5.0 [facility] Comment on above: Performed By: #### C MADM, LIVER, CMP, BNP ####[facility] [address] [address]Dr. Lisa Martinez Albumin/Globulin [Mass ratio] 0.8 {ratio} Normal [facility] Comment on above: Performed By: #### C MADM, LIVER, CMP, BNP ####[facility] [address] [address]Dr. Lisa Martinez ALP [Catalytic activity/Vol] 94 U/L Normal 46-116 [facility] Comment on above: Performed By: #### C MADM, LIVER, CMP, BNP ####[facility] [address] [address]Dr. Lisa Martinez ALT [Catalytic activity/Vol] 13 U/L Critically low 14-59 [facility] Comment on above: Performed By: #### C MADM, LIVER, CMP, BNP ####[facility] [address] [address]Dr. Lisa Martinez Anion gap [Moles/Vol] 11.1 mmol/L Normal [facility] Comment on above: Performed By: #### C MADM, LIVER, CMP, BNP ####[facility] [address] [place] [address]Dr. Lisa Martinez AST [Catalytic activity/Vol] 15 U/L Normal 15-37 [facility] Comment on above: Performed By: #### C MADM, LIVER, CMP, BNP ####[facility] [address] [address]Dr. Lisa Martinez Bilirubin [Mass/Vol] 1.6 mg/dL Critically high 0.2-1.0 [facility] Comment on above: Performed By: #### C MADM, LIVER, CMP, BNP ####[facility] [address] [address]Dr. Lisa Martinez Calcium [Mass/Vol] 9.2 mg/dL Normal 8.5-10.1 [facility] Comment on above: Performed By: #### C MADM, LIVER, CMP, BNP ####[facility] [address] [address]Dr. Lisa Martinez Chloride [Moles/Vol] 106 mmol/L Normal 98-107 [facility] Comment on above: Performed By: #### C MADM, LIVER, CMP, BNP ####[facility] [address] [address]Dr. Lisa Martinez CO2 [Moles/Vol] 29.0 mmol/L Normal 21.0-32.0 [facility] Comment on above: Performed By: #### C MADM, LIVER, CMP, BNP ####[facility] [address] [address]Dr. Lisa Martinez Creatinine [Mass/Vol] 1.43 mg/dL Critically high 0.55-1.02 [facility] Comment on above: Performed By: #### C MADM, LIVER, CMP, BNP ####[facility] [address] [place] [address]Dr. Lisa Martinez EGFR-AF [place] 42 mL/min/1.73m2 Critically low >=60 [facility] Comment on above: Performed By: #### C MADM, LIVER, CMP, BNP ####[facility] [address] [place] [address]Dr. Lisa Martinez EGFR-NON AF [place] 35 mL/min/1.73m2 Critically low >=60 [facility] Comment on above: Performed By: #### C MADM, LIVER, CMP, BNP ####[facility] [address] [place] [address]Dr. Lisa Martinez Globulin (S) [Mass/Vol] 4.2 g/dL Normal [facility] Comment on above: Performed By: #### C MADM, LIVER, CMP, BNP ####[facility] [address] [address]Dr. Lisa Martinez Glucose [Mass/Vol] 114 mg/dL Critically high 74-106 [facility] Comment on above: Performed By: #### C MADM, LIVER, CMP, BNP ####[facility] [address] [place] [address]Dr. Lisa Martinez Potassium [Moles/Vol] 4.1 mmol/L Normal 3.5-5.1 [facility] Comment on above: Performed By: #### C MADM, LIVER, CMP, BNP ####[facility] [address] [address]Dr. Lisa Martinez Protein [Mass/Vol] 7.7 g/dL Normal 6.4-8.2 [facility] Comment on above: Performed By: #### C MADM, LIVER, CMP, BNP ####[facility] [address] [address]Dr. Lisa Martinez Sodium [Moles/Vol] 142 mmol/L Normal 136-145 [facility] Comment on above: Performed By: #### C MADM, LIVER, CMP, BNP ####[facility] [address] [address]Dr. Lisa Martinez Urea nitrogen [Mass/Vol] 26.0 mg/dL Critically high 7.0-18.0 [facility] Comment on above: Performed By: #### C MADM, LIVER, CMP, BNP ####[facility] [address] [address]Dr. Lisa Martinez Urea nitrogen/Creatinine [Mass ratio] 18.2 mg/mg Normal [facility] Comment on above: Performed By: #### C MADM, LIVER, CMP, BNP ####[facility] [address] [place] [address]DrIngrid Martinez PROTIMEon 10-06-2022 INR Coag (PPP) [Relative time] 1.09 {INR} Normal [facility] Comment on above: Performed By: #### B ORDER ENTRY CLERK, BMP #### [facility] [address] [address] [address] Lisa Martinez INR GUIDELINES SEE BELOW Normal [facility] Comment on above: Result Comment: ANTONY RED INR: 2.0 - 3.0 CONDITIONS NOT LISTED BELOW 2.5 - 3.5 FOR PROSTHETIC HEART VALVE REPLACEMENT 2.5 - 3.5 RECURRENT THROMBOSIS Performed By: #### B ORDER ENTRY CLERK, BMP #### [facility] [address] [address] [address] Lisa Martinez PT Coag (PPP) [Time] 11.5 s Normal 9.0-11.6 [facility] Comment on above: Performed By: #### B ORDER ENTRY CLERK, BMP #### [facility] [address] [place] [address] [address] Lisa Martinez PTTon 10-06-2022 aPTT Coag (Bld) [Time] 26.5 s Normal 22.3-36.2 [facility] Comment on above: Performed By: #### B ORDER ENTRY CLERK, BMP #### [facility] [address] [place] [address] [address] Lisa Martinez ECHOCARDIO M/2D COMPLETEon 1 08-27-2021 ECHOCARDIO M/2D COMPLETE Patient: JENNI QUINONES Exam Date: 06/26/2022 : 1940 Gender:F Ordering : FARZANEH ARNDT Admission #: [id number] Family : Order #: [id number] CLICK HERE TO VIEW EXAM ECHOCARDIOGRAM REPORT [...] 0.81 cm2, 0.87 cm2, 0.77 cm2 Deceleration [place]: 0.72 m/s2 Pressure Half-Time: 1.18 s Peak [...] M.D. on 06/29/2022 at 15:34 Normal [facility] CBC AUTO DIFFon 05-02-2022 BASO # 0.0 103/ul Normal 0.0-0.1 [facility] Comment on above: Performed By: #### C BC #### [facility] [address] [place] [address] Dr. Lisa Martinez Basophils/100 WBC (Bld) 0.4 % Normal 0.2-2.0 [facility] Comment on above: Performed By: #### C BC #### [facility] [address] [place] [address] Dr. Lisa Martinez EO # 0.1 103/ul Normal 0.0-0.7 [facility] Comment on above: Performed By: #### C BC #### [facility] [address] [address] [address] Lisa Martinez Eosinophils/100 WBC (Bld) 1.8 % Normal 0.9-7.0 [facility] Comment on above: Performed By: #### C BC #### [facility] [address] [place] [address] Dr. Lisa Martinez Erythrocyte distribution width (RBC) [Ratio] 13.3 % Normal 11.0-15.0 [facility] Comment on above: Performed By: #### C BC #### [facility] [address] [place] [address] Dr. Lisa Martinez Hematocrit (Bld) [Volume fraction] 38.4 % Normal 36.0-48.0 [facility] Comment on above: Performed By: #### C BC #### [facility] [address] [address] [address] Lisa Martinez Hemoglobin (Bld) [Mass/Vol] 12.0 g/dL Normal 12.0-16.0 [facility] Comment on above: Performed By: #### C BC #### [facility] [address] [address] [address] Lisa Martinez IG # 0.09 10e3/ul Critically high 0.00-0.03 [facility] Comment on above: Performed By: #### C BC #### [facility] [address] [address] [address] Lisa Martinez IG % 1.6 % Critically high 0.0-0.5 [facility] Comment on above: Performed By: #### C BC #### [facility] [address] [place] [address] Dr. Lisa Martinez LYMPH # 0.9 103/ul Critically low 1.2-3.[address] [facility] Comment on above: Performed By: #### C BC #### [facility] [address] [place] [address] Dr. Lisa Martinez Lymphocytes/100 WBC (Bld) 16.0 % Critically low 20.5-60.0 [facility] Comment on above: Performed By: #### C BC #### [facility] [address] [place] [address] Dr. Lisa Martinez MANUAL DIFF REQ NO Normal [facility] Comment on above: Performed By: #### C BC #### [facility] [address] [address] [address] Lisa Martinez MCH (RBC) [Entitic mass] 30.2 pg Normal 26.7-34.0 [facility] Comment on above: Performed By: #### C BC #### [facility] [address] [place] [address] Dr. Lisa Martinez MCHC (RBC) [Mass/Vol] 31.3 g/dL Normal 29.9-35.2 [facility] Comment on above: Performed By: #### C BC #### [facility] [address] [address] [address] Lisa Martinez MCV (RBC) [Entitic vol] 96.7 fL Normal 81.0-99.0 [facility] Comment on above: Performed By: #### C BC #### [facility] [address] [address] [address] Lisa Martinez MONO # 0.6 103/ul Normal 0.3-0.8 [facility] Comment on above: Performed By: #### C BC #### [facility] [address] [address] [address] Lisa Martinez Monocytes/100 WBC (Bld) 11.3 % Normal 1.7-12.0 [facility] Comment on above: Performed By: #### C BC #### [facility] [address] [address] [address] Lisa Martinez NEUT # 3.9 103/ul Normal 1.4-6.5 [facility] Comment on above: Performed By: #### C BC #### [facility] [address] [place] [address] Dr. Lisa Martinez Neutrophils/100 WBC (Bld) 68.9 % Normal 43.0-75.0 [facility] Comment on above: Performed By: #### C BC #### [facility] [address] [address] [address] Lisa Martinez Platelet mean volume (Bld) [Entitic vol] 10.7 fL Normal 9.5-13.5 [facility] Comment on above: Performed By: #### C BC #### [facility] [address] [address] [address] Lisa Martinez PLT 164 103/ul Normal 150-450 [facility] Comment on above: Performed By: #### C BC #### [facility] [id number] Lisa Martinez RBC 3.97 106/ul Critically low 4.20-5.40 [facility] Comment on above: Performed By: #### C BC #### [facility] [address] [place] [address] Dr. Lisa Martinez WBC 5.6 103/ul Normal 4.0-11.0 [facility] Comment on above: Performed By: #### C BC #### [facility] [address] [address] [address] Lisa Martinez PROF 14(COMP METB)on 022 Albumin [Mass/Vol] 2.8 g/dL Critically low 3.4-5.0 [facility] Comment on above: Performed By: #### U RCX #### [facility] [address] [place] [address] Dr. Lisa Martinez Albumin/Globulin [Mass ratio] 0.7 {ratio} Normal [facility] Comment on above: Performed By: #### U RCX #### [facility] [address] [place] [address] Dr. Lisa Martinez ALP [Catalytic activity/Vol] 74 U/L Normal 46-116 [facility] Comment on above: Performed By: #### U RCX #### [facility] [address] [place] [address] Dr. Lisa Martinez ALT [Catalytic activity/Vol] 11 U/L Critically low 14-59 [facility] Comment on above: Performed By: #### U RCX #### [facility] [address] [place] [address] Dr. Lisa Martinez Anion gap [Moles/Vol] 13.5 mmol/L Normal [facility] Comment on above: Performed By: #### U RCX #### [facility] [address] [place] [address] Dr. Lisa Martinez AST [Catalytic activity/Vol] 14 U/L Critically low 15-37 [facility] Comment on above: Performed By: #### U RCX #### [facility] [address] [place] [address] Dr. Lias Martinez Bilirubin [Mass/Vol] 0.5 mg/dL Normal 0.2-1.0 [facility] Comment on above: Performed By: #### U RCX #### [facility] [address] [address] [address] Lisa Martinez Calcium [Mass/Vol] 8.5 mg/dL Normal 8.5-10.1 [facility] Comment on above: Performed By: #### U RCX #### [facility] [address] [address] [address] Lisa Martinez Chloride [Moles/Vol] 103 mmol/L Normal 98-107 [facility] Comment on above: Performed By: #### U RCX #### [facility] [address] [address] [address] Lisa Martinez CO2 [Moles/Vol] 24.5 mmol/L Normal 21.0-32.0 [facility] Comment on above: Performed By: #### U RCX #### [facility] [address] [address] [address] Lisa Martinez Creatinine [Mass/Vol] 1.43 mg/dL Critically high 0.55-1.02 [facility] Comment on above: Performed By: #### U RCX #### [facility] [address] [address] [address] Lisa Martinez EGFR-AF [place] 42 mL/min/1.73m2 Critically low >=60 [facility] Comment on above: Performed By: #### U RCX #### [facility] [address] [address] [address] Lisa Martinez EGFR-NON AF [place] 35 mL/min/1.73m2 Critically low >=60 [facility] Comment on above: Performed By: #### U RCX #### [facility] [address] [address] [address] Lisa Martinez Globulin (S) [Mass/Vol] 4.3 g/dL Normal [facility] Comment on above: Performed By: #### U RCX #### [facility] [address] [address] [address] Lisa Martinez Glucose [Mass/Vol] 142 mg/dL Critically high 74-106 [facility] Comment on above: Performed By: #### U RCX #### [facility] [address] [address] [address] Lisa Martinez Potassium [Moles/Vol] 4.0 mmol/L Normal 3.5-5.1 [facility] Comment on above: Performed By: #### U RCX #### [facility] [address] [place] [address] Dr. Lisa Martinez Protein [Mass/Vol] 7.1 g/dL Normal 6.4-8.2 [facility] Comment on above: Performed By: #### U RCX #### [facility] [address] [address] [address] Lisa Martinez Sodium [Moles/Vol] 137 mmol/L Normal 136-145 [facility] Comment on above: Performed By: #### U RCX #### [facility] [address] [place] [address] Dr. Lisa Martinez Urea nitrogen [Mass/Vol] 31.0 mg/dL Critically high 7.0-18.0 [facility] Comment on above: Performed By: #### U RCX #### [facility] [address] [place] [address] Dr. Lisa Martinez Urea nitrogen/Creatinine [Mass ratio] 21.7 mg/mg Normal [facility] Comment on above: Performed By: #### U RCX #### [facility] [address] [place] [address] Dr. Lisa Martinez CBC AUTO DIFFon 05-01-2022 BASO # 0.0 103/ul Normal 0.0-0.1 [facility] Comment on above: Performed By: #### U RCX #### [facility] [address] [place] [address] Dr. Lisa Martinez Basophils/100 WBC (Bld) 0.3 % Normal 0.2-2.0 [facility] Comment on above: Performed By: #### U RCX #### [facility] [address] [place] [address] Dr. Lisa Martinez EO # 0.1 103/ul Normal 0.0-0.7 [facility] Comment on above: Performed By: #### U RCX #### [facility] [address] [address] [address] Lisa Martinez Eosinophils/100 WBC (Bld) 0.9 % Normal 0.9-7.0 [facility] Comment on above: Performed By: #### U RCX #### [facility] [address] [address] [address] Lisa Martinez Erythrocyte distribution width (RBC) [Ratio] 13.4 % Normal 11.0-15.0 [facility] Comment on above: Performed By: #### U RCX #### [facility] [address] [address] [address] Lisa Martinez Hematocrit (Bld) [Volume fraction] 41.6 % Normal 36.0-48.0 [facility] Comment on above: Performed By: #### U RCX #### [facility] [address] [place] [address] Dr. Lisa Martinez Hemoglobin (Bld) [Mass/Vol] 12.8 g/dL Normal 12.0-16.0 [facility] Comment on above: Performed By: #### U RCX #### [facility] [address] [place] [address] Dr. Lisa Martinez IG # 0.16 10e3/ul Critically high 0.00-0.03 [facility] Comment on above: Performed By: #### U RCX #### [facility] [address] [place] [address] Dr. Lisa Martinez IG % 1.6 % Critically high 0.0-0.5 [facility] Comment on above: Performed By: #### U RCX #### [facility] [address] [address] [address] Lisa Martinez LYMPH # 0.8 103/ul Critically low 1.2-3.8 [facility] Comment on above: Performed By: #### U RCX #### [facility] [address] [place] [address] Dr. Lisa Martinez Lymphocytes/100 WBC (Bld) 7.8 % Critically low 20.5-60.0 [facility] Comment on above: Performed By: #### U RCX #### [facility] [address] [address] [address] Lisa Martinez MANUAL DIFF REQ NO Normal [facility] Comment on above: Performed By: #### U RCX #### [facility] [address] [address] [address] Lisa Martinez MCH (RBC) [Entitic mass] 29.8 pg Normal 26.7-34.0 [facility] Comment on above: Performed By: #### U RCX #### [facility] [address] [address] [address] Lisa Martinez MCHC (RBC) [Mass/Vol] 30.8 g/dL Normal 29.9-35.2 [facility] Comment on above: Performed By: #### U RCX #### [facility] [address] [address] [address] Lisa Martinez MCV (RBC) [Entitic vol] 96.7 fL Normal 81.0-99.0 [facility] Comment on above: Performed By: #### U RCX #### [facility] [address] [address] [address] Lisa Martinez MONO # 0.8 103/ul Normal 0.3-0.8 [facility] Comment on above: Performed By: #### U RCX #### [facility] [address] [address] [address] Lisa Martinez Monocytes/100 WBC (Bld) 8.4 % Normal 1.7-12.0 [facility] Comment on above: Performed By: #### U RCX #### [facility] [address] [address] [address] Lisa Martinez NEUT # 7.9 103/ul Critically high 1.4-6.5 [facility] Comment on above: Performed By: #### U RCX #### [facility] [address] [address] [address] Lisa Martinez Neutrophils/100 WBC (Bld) 81.0 % Critically high 43.0-75.0 [facility] Comment on above: Performed By: #### U RCX #### [facility] [address] [address] [address] Lisa Martinez Platelet mean volume (Bld) [Entitic vol] 10.6 fL Normal 9.5-13.5 [facility] Comment on above: Performed By: #### U RCX #### [facility] [address] [place] [address] Dr. Lisa Martinez PLT 211 103/ul Normal 150-450 [facility] Comment on above: Performed By: #### U RCX #### [facility] [address] [place] [address] Dr. Lisa Martinez RBC 4.30 106/ul Normal 4.20-5.40 [facility] Comment on above: Performed By: #### U RCX #### [facility] [address] [place] [address] Dr. Lisa Martinez WBC 9.8 103/ul Normal 4.0-11.0 [facility] Comment on above: Performed By: #### U RCX #### [facility] [address] [place] [address] Dr. Lisa Martniez DIGOXINon 05-01-2022 DIG 0.7 ng/mL Critically low 0.9-2.[address] [facility] Comment on above: Performed By: #### B ORDER ENTRY CLERK, BMP #### [facility] [address] [place] [address] Dr. Lisa Martinez GI PANEL (PCR)on 05-01-2022 Adenovirus F 40/41 Not detected Normal NOT DETECTED [facility] Comment on above: Performed By: #### B LDCX2 #### [facility] [address] [place] [address] Dr. Lisa Martinez Astrovirus Not detected Normal NOT DETECTED [facility] Comment on above: Performed By: #### B LDCX2 #### [facility] [address] [place] [address] Dr. Lisa Martinez C. Diff toxin A/B Not detected Normal NOT DETECTED [facility] Comment on above: Performed By: #### B LDCX2 #### [facility] [address] [place] [address] Dr. Lisa Martinez Campylobacter Not detected Normal NOT DETECTED [facility] Comment on above: Performed By: #### B LDCX2 #### [facility] [address] [place] [address] Dr. Lisa Martinez Cryptosporidium Not detected Normal NOT DETECTED [facility] Comment on above: Performed By: #### B LDCX2 #### [facility] [address] [place] [address] Dr. Lisa Martinez Cyclos. Cayetanensis Not detected Normal NOT DETECTED [facility] Comment on above: Performed By: #### B LDCX2 #### [facility] [address] [place] [address] Dr. Lisa Martinez E. Coli O157 Not Applicable Normal Not Applicable [facility] Comment on above: Performed By: #### B LDCX2 #### [facility] [address] [place] [address] Dr. Lisa Martinez E. histolytica Not detected Normal NOT DETECTED [facility] Comment on above: Performed By: #### B LDCX2 #### [facility] [address] [place] [address] Dr. Lisa Martinez EAEC Not detected Normal NOT DETECTED [facility] Comment on above: Performed By: #### B LDCX2 #### [facility] [address] [place] [address] Dr. Lisa Martinez EIEC Not detected Normal NOT DETECTED [facility] Comment on above: Performed By: #### B LDCX2 #### [facility] [address] [place] [address] Dr. Lisa Martinez EPEC Not detected Normal NOT DETECTED [facility] Comment on above: Performed By: #### B LDCX2 #### [facility] [address] [place] [address] Dr. Lisa Martinez ETEC Not detected Normal NOT DETECTED [facility] Comment on above: Performed By: #### B LDCX2 #### [facility] [address] [place] [address] Dr. Yilan Martinez G. Lamblia Not detected Normal NOT DETECTED [facility] Comment on above: Performed By: #### B LDCX2 #### [facility] [address] [address] [address] Lisa MALDONADO CONTROLS PASSED Normal [facility] Comment on above: Performed By: #### B LDCX2 #### [facility] [address] [address] [address] Lisa LEWIS CHRIS HEADER GI PANEL BACTERIA Normal [facility] Comment on above: Performed By: #### B LDCX2 #### [facility] [address] [address] [address] Lisa HIRSCH ECOLI GI PANEL DIARRHEAGEN IC E.COLI / SHIGELLA Normal [facility] Comment on above: Performed By: #### B LDCX2 #### [facility] [address] [place] [address] Dr. Lisa HIRSCH INFO SEE BELOW Normal [facility] Comment on above: Result Comment: EAEC - Enteroaggregative E. Coli EPEC- Enteropathogenic E. Coli ETEC- Enterotoxigenic E. Coli lt/st STEC- Shigella-like toxin-producing E. Coli stx1/stx2 EIEC- Shigella/Enteroinvasive E. Coli Performed By: #### B LDCX2 #### [facility] [address] [place] [address] Dr. Lisa HIRSCH PARASITES GI PANEL PARASITES Normal [facility] Comment on above: Performed By: #### B LDCX2 #### [facility] [address] [place] [address] Dr. Lisa HIRSCH VIRUS GI PANEL VIRUSES Normal The [facility] Comment on above: Performed By: #### B LDCX2 #### [facility] [address] [place] [address] Dr. Lisa Martinez Norovirus GI/GII Not detected Normal NOT DETECTED [facility] Comment on above: Performed By: #### B LDCX2 #### [facility] [address] [place] [address] Dr. Yilan Martinez P. Shigelloides Not detected Normal NOT DETECTED [facility] Comment on above: Performed By: #### B LDCX2 #### [facility] [address] [place] [address] Dr. Lisa Martienz Rotavirus A Not detected Normal NOT DETECTED [facility] Comment on above: Performed By: #### B LDCX2 #### [facility] [address] [place] [address] Dr. Lisa Martinez Salmonella Not detected Normal NOT DETECTED [facility] Comment on above: Performed By: #### B LDCX2 #### [facility] [address] [place] [address] Dr. Lisa Martinez Sapovirus Not detected Normal NOT DETECTED [facility] Comment on above: Performed By: #### B LDCX2 #### [facility] [address] [place] [address] Dr. Lisa Martinez STEC Not detected Normal NOT DETECTED [facility] Comment on above: Performed By: #### B LDCX2 #### [facility] [address] [place] [address] Dr. Lisa Martinez Vibrio Not detected Normal NOT DETECTED [facility] Comment on above: Performed By: #### B LDCX2 #### [facility] [address] [place] [address] Dr. Lisa Martinez Vibrio Cholera Not detected Normal NOT DETECTED [facility] Comment on above: Performed By: #### B LDCX2 #### [facility] [address] [place] [address] Dr. Lisa Martinez Y. Enterocolitica Not detected Normal NOT DETECTED [facility] Comment on above: Performed By: #### B LDCX2 #### [facility] [address] [place] [address] Dr. Lisa Martinez MAGNESIUMon 05-01-2022 Magnesium [Mass/Vol] 2.0 mg/dL Normal 1.8-2.4 [facility] Comment on above: Performed By: #### M G ####[facility] [address] [address]Dr. Lisa Martinez POINT OF CARE GLUCOSEon 04-09 Glucose [Mass/Vol] 184 mg/dL Critically high 74-106 [facility] Comment on above: Performed By: #### U RCX #### [facility] [address] [address] [address] Lisa Martinez Glucose [Mass/Vol] 137 mg/dL Critically high 74-106 [facility] Comment on above: Result Comment: Foll ow Protocol Performed By: #### C BC #### [facility] [address] [address] [address] Lisa Martinez Glucose [Mass/Vol] 170 mg/dL Critically high -106 [facility] Comment on above: Result Comment: Foll ow Protocol Performed By: #### P OCGLUC ####[facility] [address] [address]DrIngrid Martinez PROF 14(COMP METB)on 022 Albumin [Mass/Vol] 3.0 g/dL Critically low 3.4-5.0 [facility] Comment on above: Performed By: #### C MP ####[facility] [address] [address]Dr. Lisa Martinez Albumin/Globulin [Mass ratio] 0.6 {ratio} Normal [facility] Comment on above: Performed By: #### C MP ####[facility] [address] [address]Dr. Lisa Martinez ALP [Catalytic activity/Vol] 101 U/L Normal 46-116 [facility] Comment on above: Performed By: #### C MP ####[facility] [address] [address]Dr. Lisa Martinez ALT [Catalytic activity/Vol] 16 U/L Normal 14-59 [facility] Comment on above: Performed By: #### C MP ####[facility] [address] [address]Dr. Lisa Martinez Anion gap [Moles/Vol] 9.7 mmol/L Normal [facility] Comment on above: Performed By: #### C MP ####[facility] [address] [address]Dr. Lisa Martinez AST [Catalytic activity/Vol] 13 U/L Critically low 15-37 [facility] Comment on above: Performed By: #### C MP ####[facility] [address] [place], [place] [address]Dr. Lisa Martinez Bilirubin [Mass/Vol] 0.5 mg/dL Normal 0.2-1.0 [facility] Comment on above: Performed By: #### C MP ####[facility] [address] [place], [place] [address]Dr. Lisa Martinez Calcium [Mass/Vol] 8.8 mg/dL Normal 8.5-10.1 [facility] Comment on above: Performed By: #### C MP ####[facility] [address] [place], [place] [address]Dr. Lisa Martinez Chloride [Moles/Vol] 104 mmol/L Normal 98-107 [facility] Comment on above: Performed By: #### C MP ####[facility] [address] [place], [place] [address]Dr. Lisa Martinez CO2 [Moles/Vol] 26.8 mmol/L Normal 21.0-32.0 [facility] Comment on above: Performed By: #### C MP ####[facility] [address] [place], [place] [address]Dr. Lisa Martinez Creatinine [Mass/Vol] 1.51 mg/dL Critically high 0.55-1.02 [facility] Comment on above: Performed By: #### C MP ####[facility] [address] [place], [place] [address]Dr. Lisa Martinez EGFR-AF [place] 40 mL/min/1.73m2 Critically low >=60 [facility] Comment on above: Performed By: #### C MP ####[facility] [address] [place], [place] [address]Dr. Lisa Martinez EGFR-NON AF [place] 33 mL/min/1.73m2 Critically low >=60 [facility] Comment on above: Performed By: #### C MP ####[facility] [address] [address]Dr. Lisa Martinez Globulin (S) [Mass/Vol] 4.8 g/dL Normal [facility] Comment on above: Performed By: #### C MP ####[facility] [address] [place], [place] [address]Dr. Lisa Martinez Glucose [Mass/Vol] 177 mg/dL Critically high 74-106 [facility] Comment on above: Performed By: #### C MP ####[facility] [address] [place], [place] [address]Dr. Lisa Martinez Potassium [Moles/Vol] 4.5 mmol/L Normal 3.5-5.1 [facility] Comment on above: Performed By: #### C MP ####[facility] [address] [place], [place] [address]Dr. Lisa Martinez Protein [Mass/Vol] 7.8 g/dL Normal 6.4-8.2 [facility] Comment on above: Performed By: #### C MP ####[facility] [address] [place], [place] [address]Dr. Lisa Martinez Sodium [Moles/Vol] 136 mmol/L Normal 136-145 [facility] Comment on above: Performed By: #### C MP ####[facility] [address] [place], [place] [address]Dr. Lisa Martinez Urea nitrogen [Mass/Vol] 28.0 mg/dL Critically high 7.0-18.0 [facility] Comment on above: Performed By: #### C MP ####[facility] [address] [place], [place] [address]Dr. Lisa Martinez Urea nitrogen/Creatinine [Mass ratio] 18.5 mg/mg Normal [facility] Comment on above: Performed By: #### C MP ####[facility] [address] [place], [place] [address]Dr. Lisa Martinez BNPon 04-30-2022 Natriuretic peptide B (Bld) [Mass/Vol] 1752.0 pg/mL Normal <=1,800.0 [facility] Comment on above: Performed By: #### B ORDER ENTRY CLERK, BMP #### [facility] [address] [place], [place] [address] Dr. Lisa Martinez CBC AUTO DIFFon 04-30-2022 BASO # 0.1 103/ul Normal 0.0-0.1 [facility] Comment on above: Performed By: #### C BC ####[facility] [address] [phone] Martinez Basophils/100 WBC (Bld) 0.6 % Normal 0.2-2.0 [facility] Comment on above: Performed By: #### C BC ####[facility] [address] [address]Dr. Lisa Martinez EO # 0.1 103/ul Normal 0.0-0.7 [facility] Comment on above: Performed By: #### C BC ####[facility] [address] [address]Dr. Lisa Martinez Eosinophils/100 WBC (Bld) 1.2 % Normal 0.9-7.0 [facility] Comment on above: Performed By: #### C BC ####[facility] [address] [id number] Martinez Erythrocyte distribution width (RBC) [Ratio] 13.2 % Normal 11.0-15.0 [facility] Comment on above: Performed By: #### C BC ####[facility] [address] [id number]. Lisa Martinez Hematocrit (Bld) [Volume fraction] 43.4 % Normal 36.0-48.0 [facility] Comment on above: Performed By: #### C BC ####[facility] [address] [phone] Martinez Hemoglobin (Bld) [Mass/Vol] 14.2 g/dL Normal 12.0-16.0 [facility] Comment on above: Performed By: #### C BC ####[facility] [address] [place], [place] [id number]. Lisa Martinez IG # 0.13 10e3/ul Critically high 0.00-0.03 [facility] Comment on above: Performed By: #### C BC ####[facility] [address] [phone] Lisa Martinez IG % 1.6 % Critically high 0.0-0.5 [facility] Comment on above: Performed By: #### C BC ####[facility] [address] [id number] Lisa Martinez LYMPH # 0.8 103/ul Critically low 1.2-3.[address] [facility] Comment on above: Performed By: #### C BC ####[facility] [address] [id number] Lisa Juan Lymphocytes/100 WBC (Bld) 9.8 % Critically low 20.5-60.0 [facility] Comment on above: Performed By: #### C BC ####[facility] [address] [address]DrIngrid Lisa Juan MANUAL DIFF REQ NO Normal [facility] Comment on above: Performed By: #### C BC ####[facility] [address] [phone] Lisa Martinez MCH (RBC) [Entitic mass] 30.0 pg Normal 26.7-34.0 [facility] Comment on above: Performed By: #### C BC ####[facility] [address] [id number] Lisa Martinez MCHC (RBC) [Mass/Vol] 32.7 g/dL Normal 29.9-35.2 [facility] Comment on above: Performed By: #### C BC ####[facility] [address] [phone] Lisa Juan MCV (RBC) [Entitic vol] 91.8 fL Normal 81.0-99.0 [facility] Comment on above: Performed By: #### C BC ####[facility] [id number] [place] [id number] Fabianachapis Martinez MONO # 1.2 103/ul Critically high 0.3-0.8 [facility] Comment on above: Performed By: #### C BC ####[facility] [address] [place] [id number]. Lisa Martinez Monocytes/100 WBC (Bld) 15.0 % Critically high 1.7-12.0 [facility] Comment on above: Performed By: #### C BC ####[facility] [address] [place] [id number]. Lisa Martinez NEUT # 5.8 103/ul Normal 1.4-6.5 [facility] Comment on above: Performed By: #### C BC ####[facility] [address] [place] [address]Dr. Lisa Martinez Neutrophils/100 WBC (Bld) 71.8 % Normal 43.0-75.0 [facility] Comment on above: Performed By: #### C BC ####[facility] [address] [place] [address]Dr. Lisa Martinez Platelet mean volume (Bld) [Entitic vol] 10.5 fL Normal 9.5-13.5 [facility] Comment on above: Performed By: #### C BC ####[facility] [address] [place] [address]Dr. Lisa Martinez PLT 242 103/ul Normal 150-450 [facility] Comment on above: Performed By: #### C BC ####[facility] [address] [place] [address]Dr. Lisa Martinez RBC 4.73 106/ul Normal 4.20-5.40 [facility] Comment on above: Performed By: #### C BC ####[facility] [address] [place] [id number]. Lisa Martinez WBC 8.1 103/ul Normal 4.0-11.0 [facility] Comment on above: Performed By: #### C BC ####[facility] [address] [place] [id number]. Lisa Martinez CT HEAD WO CONon 04-30-2022 [...] MEENA HAWKINS Date: 2022-04-30 07:46 Normal [facility] CULTURE BLOODon 04-30-2022 Microscopic examination of blood, culture Culture Observations: NO GROWTH AT 5 DAYS. Normal [facility] Comment on above: Performed By: #### B LDCX2 #### [facility] [address] [address] [address] Lisa Martinez Microscopic examination of blood, culture Culture Observations: NO GROWTH AT 5 DAYS. Normal [facility] Comment on above: Performed By: #### B LDCX1 ####[facility] [address] [place] [address]Dr. Lisa Martinez CULTURE URINEon 04-30-2022 CULTURE URINE Culture Observations : No growth Normal [facility] Comment on above: Performed By: #### U RCX ####[facility] [address] [place] [address]Dr. Lisa Martinez Covid-19 PCR (CVDTBH)on 04-09 SARS-CoV-2 (COVID-19) RNA RACIEL+probe Ql (Unsp spec) Detected Critically abnormal NOT DETECTED [facility] Comment on above: Result Comment: This test is not yet approved or cleared by the [place] FDA. When there are no FDA-approved or cleared tests available, and other criteria are met, FDA can make tests available under an emergency access mechanism called an Emergency Use Authorization (EUA). The EUA for this test is supported by the Behavioral Interventionist of Health and Human Service's declaration that [...] used). Performed By: #### C VDTB #### [facility] [address] [place] [address] Dr. Lisa Martinez ER URINE PROFILEon 2 Bilirubin Ql (U) Negative Normal NEGATIVE [facility] Comment on above: Performed By: #### C BC #### [facility] [address] [place] [address] Dr. Lisa Martinez Clarity (U) CLEAR Normal CLEAR [facility] Comment on above: Performed By: #### C BC #### [facility] [address] [place] [address] Dr. Lisa Martinez Color (U) LT. YELLOW Normal YELLOW [facility] Comment on above: Performed By: #### C BC #### [facility] [address] [place] [address] Dr. Lisa Martinez ERUAHD A micrscopic examina tion will be performed if indicated. Normal [facility] Comment on above: Performed By: #### C BC #### [facility] [address] [place] [address] Dr. Lisa Martinez Glucose Ql (U) Negative Normal NEGATIVE [facility] Comment on above: Performed By: #### C BC #### [facility] [address] [place] [address] Dr. Lisa Martinez Hemoglobin Ql (U) Negative Normal NEGATIVE [facility] Comment on above: Performed By: #### C BC #### [facility] [address] [place] [address] Dr. Lisa Martinez Ketones Ql (U) Negative Normal NEGATIVE [facility] Comment on above: Performed By: #### C BC #### [facility] [address] [place] [address] Dr. Lisa Martinez LEUKOCYTES Negative Normal NEGATIVE [facility] Comment on above: Performed By: #### C BC #### [facility] [address] [place] [address] Dr. Lisa Martinez Nitrite Ql (U) Positive Abnormal NEGATIVE [facility] Comment on above: Performed By: #### C BC #### [facility] [address] [place] [address] Dr. Lisa Martinez pH (U) 5.5 [pH] Normal 5-9 [facility] Comment on above: Performed By: #### C BC #### [facility] [address] [place] [address] Dr. Lisa Martinez SPEC GRAVITY 1.030 Abnormal 1.005-<=1.0 25 [facility] Comment on above: Performed By: #### C BC #### [facility] [address] [place] [address] Dr. Lisa Martinez UA PROTEIN Negative Normal NEGATIVE/ TRACE [facility] Comment on above: Performed By: #### C BC #### [facility] [address] [place] [address] Dr. Lisa Martinez UR MICRO IND INDICATED Normal [facility] Comment on above: Performed By: #### C BC #### [facility] [address] [place] [address] Dr. Lisa Martinez Urobilinogen Qn (U) 0.2 {Mike'U}/dL Normal 0.2 - 1. 0 [facility] Comment on above: Performed By: #### C BC #### [facility] [address] [place] [address] Dr. Lisa Martinez GLYCOHEMOGLOBIN A1Con 2021 ADA RECOMMENDATION SEE BELOW Normal [facility] Comment on above: Result Comment: ADA RECOMMENDED LIMIT 4.0 - 6.0 ADA THERAPEUTIC TARGET < 7.0 ACTION SUGGESTED > 7.0 Performed By: #### B ORDER ENTRY CLERK, BMP #### [facility] [address] [place] [address] Dr. Lisa Martinez Glucose [Mass/Vol] 154 mg/dL Normal [facility] Comment on above: Performed By: #### B ORDER ENTRY CLERK, BMP #### [facility] [address] [address] [address] Lisa Martinez HbA1c (Bld) [Mass fraction] 7.0 % Critically high 4.5-6.2 [facility] Comment on above: Performed By: #### B ORDER ENTRY CLERK, BMP #### [facility] [address] [address] [address] Lisa Martinez LACTATE/LACTIC ACIDon 2021 Lactate [Moles/Vol] 1.1 mmol/L Normal 0.4-1.9 [facility] Comment on above: Performed By: #### L ACT ####[facility] [id number] [place] [address]Dr. Lisa Martinez LIPASEon 04-30-2022 Lipase [Catalytic activity/Vol] 53.0 U/L Critically low 73.0-393.0 [facility] Comment on above: Performed By: #### B ORDER ENTRY CLERK, BMP #### [facility] [address] [address] [address] Lisa Martinez LIVER PROFILEon 04-30-2022 Albumin [Mass/Vol] 3.4 g/dL Normal 3.4-5.0 [facility] Comment on above: Performed By: #### U RCX #### [facility] [address] [place] [address] Dr. Lisa Martinez Albumin/Globulin [Mass ratio] 0.7 {ratio} Normal [facility] Comment on above: Performed By: #### U RCX #### [facility] [address] [place] [address] Dr. Lisa Martinez ALP [Catalytic activity/Vol] 110 U/L Normal 46-116 [facility] Comment on above: Performed By: #### U RCX #### [facility] [address] [address] [address] Lisa Martinez ALT [Catalytic activity/Vol] 20 U/L Normal 14-59 [facility] Comment on above: Performed By: #### U RCX #### [facility] [address] [address] [address] Lisa Martinez AST [Catalytic activity/Vol] 16 U/L Normal 15-37 [facility] Comment on above: Performed By: #### U RCX #### [facility] [address] [address] [address] Lisa Martinez BILI, CONJUGATED 0.2 mg/dL Normal 0.0-0.2 [facility] Comment on above: Performed By: #### U RCX #### [facility] [address] [address] [address] Lisa Martinez Bilirubin [Mass/Vol] 0.7 mg/dL Normal 0.2-1.0 [facility] Comment on above: Performed By: #### U RCX #### [facility] [address] [address] [address] Lisa Martinez Globulin (S) [Mass/Vol] 5.0 g/dL Normal [facility] Comment on above: Performed By: #### U RCX #### [facility] [address] [place] [address] Dr. Lisa Martinez Protein [Mass/Vol] 8.4 g/dL Critically high 6.4-8.2 [facility] Comment on above: Performed By: #### U RCX #### [facility] [address] [place] [address] Dr. Lisa Martinez POINT OF CARE GLUCOSEon 04-09 Glucose [Mass/Vol] 203 mg/dL Critically high 74-106 [facility] Comment on above: Performed By: #### B ORDER ENTRY CLERK, BMP #### [facility] [address] [place] [address] Dr. Lisa Martinez Glucose [Mass/Vol] 174 mg/dL Critically high 74-106 [facility] Comment on above: Performed By: #### C BC #### [facility] [address] [place] [address] Dr. Lisa Martinez Glucose [Mass/Vol] 149 mg/dL Critically high 74-106 [facility] Comment on above: Performed By: #### B LDCX2 #### [facility] [address] [place] [address] Dr. Lisa Martinez PROF CHEM 8 (BAS METB)on Anion gap [Moles/Vol] 15.3 mmol/L Normal [facility] Comment on above: Performed By: #### C BC #### [facility] [address] [address] [address] Lisa Martinez Calcium [Mass/Vol] 9.1 mg/dL Normal 8.5-10.1 [facility] Comment on above: Performed By: #### C BC #### [facility] [address] [address] [address] Lisa Martinez Chloride [Moles/Vol] 98 mmol/L Normal 98-107 [facility] Comment on above: Performed By: #### C BC #### [facility] [address] [place] [address] Dr. Lisa Martinez CO2 [Moles/Vol] 24.4 mmol/L Normal 21.0-32.0 [facility] Comment on above: Performed By: #### C BC #### [facility] [address] [address] [address] Lisa Martinez Creatinine [Mass/Vol] 1.44 mg/dL Critically high 0.55-1.02 [facility] Comment on above: Performed By: #### C BC #### [facility] [address] [place] [address] Dr. Lisa Martinez EGFR-AF [place]THER[place] 42 mL/min/1.73m2 Critically low >=60 [facility] Comment on above: Performed By: #### C BC #### [facility] [address] [address] [address] Lisa Martinez EGFR-NON AF [place] 35 mL/min/1.73m2 Critically low >=60 [facility] Comment on above: Performed By: #### C BC #### [facility] [address] [place] [address] Dr. Lisa Martinez Glucose [Mass/Vol] 225 mg/dL Critically high 74-106 [facility] Comment on above: Performed By: #### C BC #### [facility] [address] [address] [address] Lisa Martinez Potassium [Moles/Vol] 4.7 mmol/L Normal 3.5-5.1 [facility] Comment on above: Performed By: #### C BC #### [facility] [address] [place] [address] Dr. Lisa Martinez Sodium [Moles/Vol] 133 mmol/L Critically low 136-145 [facility] Comment on above: Performed By: #### C BC #### [facility] [address] [address] [address] Lisa Martinez Urea nitrogen [Mass/Vol] 37.0 mg/dL Critically high 7.0-18.0 [facility] Comment on above: Performed By: #### C BC #### [facility] [address] [place] [address] Dr. Lisa Martinez Urea nitrogen/Creatinine [Mass ratio] 25.7 mg/mg Normal [facility] Comment on above: Performed By: #### C BC #### [facility] [address] [place] [address] Dr. Lisa Martinez PROTIMEon 04-30-2022 INR Coag (PPP) [Relative time] 1.02 {INR} Normal [facility] Comment on above: Performed By: #### K U #### [facility] [address] [place] [address] Dr. Lisa Martinez INR GUIDELINES SEE BELOW Normal [facility] Comment on above: Result Comment: ANTONY RED INR: 2.0 - 3.0 CONDITIONS NOT LISTED BELOW 2.5 - 3.5 FOR PROSTHETIC HEART VALVE REPLACEMENT 2.5 - 3.5 RECURRENT THROMBOSIS Performed By: #### K U #### [facility] [address] [place] [address] Dr. Lisa Martinez PT Coag (PPP) [Time] 11.0 s Normal 9.0-11.6 [facility] Comment on above: Performed By: #### K U #### [facility] [address] [place] [address] Dr. Lisa Martinez PTTon 04-30-2022 aPTT Coag (Bld) [Time] 27.5 s Normal 22.3-36.2 [facility] Comment on above: Performed By: #### K U #### [facility] [address] [place] [address] Dr. Lisa Martinez TROPONIN, HIGH SENSITIVITYon 04-30-2022 HSTROP 20.0 pg/mL Normal 4.0-51.3 [facility] Comment on above: Result Comment: CUT- OFF POINTS HAVE BEEN ESTABLISHED BASED ON THE FOURTH UNIVERSAL DEFINITIONS OF MYOCARDIAL INFARCTION. THE UPPER REFERENCE LIMIT (URL) OF TROPONIN, DEFINED THE 99TH PERCENTILE OF cTnI DISTRIBUTION IN A REFERENCE POPULATION, HAS BEEN CONFIRMED THE DECISION THRESHOLD FOR [place] DIAGNOSIS. Performed By: #### U RCX #### [facility] [address] [place] [address] Dr. Lisa Martinez URINE MICROSCOPIC ONLYon BACTERIA MODERATE Abnormal NONE SEEN [facility] Comment on above: Performed By: #### K U #### [facility] [address] [place] [address] Dr. Lisa Martinez Bacteria identified Cx Nom (U) INDICATED Normal [facility] Comment on above: Performed By: #### K U #### [facility] [address] [place] [address] Dr. Lisa Martinez CAST NONE SEEN Normal NONE SEEN [facility] Comment on above: Performed By: #### K U #### [facility] [address] [place] [address] Dr. Lisa Martinez Crystals LM Nom (Urine sed) NONE SEEN Normal NONE SEEN [facility] Comment on above: Performed By: #### K U #### [facility] [address] [place] [address] Dr. Lisa Martinez Epithelial cells LM Ql (Urine sed) RARE Normal NONE SEEN /RARE [facility] Comment on above: Performed By: #### K U #### [facility] [address] [place] [address] Dr. Lisa Martinez MUCOUS NONE SEEN Normal NONE SEEN [facility] Comment on above: Performed By: #### K U #### [facility] [address] [place] [address] Dr. Lisa Martinez RBC NONE SEEN Abnormal 0-2 [facility] Comment on above: Performed By: #### K U #### [facility] [address] [address] [address] Lisa Martinez WBC 0-2 Abnormal NONE SEEN [facility] Comment on above: Performed By: #### K U #### [facility] [address] [address] [address] Lisa Martinez XR CHEST 1 Von [...] MEENA HAWKINS Date: 2022-04-30 07:42 Normal [facility] FREE T3on 04-12-2022 FREE T3 2.10 pg/mlL Critically low 2.18-3.98 [facility] Comment on above: Performed By: #### C VDTBH #### [facility] [address] [place] [address] Dr. Lisa Martinez FREE T4on 04-12-2022 Free T4 [Mass/Vol] 0.88 ng/dL Normal 0.76-1.46 [facility] Comment on above: Performed By: #### B LDCX2 #### [facility] [address] [place] [address] Dr. Lisa Martinez TSHon 04-12-2022 TSH 5.007 uIU/mL Critically high 0.358-3.740 [facility] Comment on above: Performed By: #### C VDTBH #### [facility] [address] [place] [address] Dr. Lisa Martinez US THYROIDon 04-12-2022 US [...] MEENA HAWKINS Date: 2022-04-12 13:20 Normal [facility] CBC AUTO DIFFon 02-12-2022 BASO # 0.1 103/ul Normal 0.0-0.1 [facility] Comment on above: Performed By: #### K U #### [facility] [address] [place] [address] Dr. Lisa Martinez Basophils/100 WBC (Bld) 0.7 % Normal 0.2-2.0 [facility] Comment on above: Performed By: #### K U #### [facility] [address] [place] [address] Dr. Lisa Martinez EO # 0.3 103/ul Normal 0.0-0.7 [facility] Comment on above: Performed By: #### K U #### [facility] [address] [place] [address] Dr. Lisa Martinez Eosinophils/100 WBC (Bld) 3.3 % Normal 0.9-7.0 [facility] Comment on above: Performed By: #### K U #### [facility] [address] [place] [address] Dr. Lisa Martinez Erythrocyte distribution width (RBC) [Ratio] 13.0 % Normal 11.0-15.0 [facility] Comment on above: Performed By: #### K U #### [facility] [address] [place] [address] Dr. Lisa Martinez Hematocrit (Bld) [Volume fraction] 34.6 % Critically low 36.0-48.0 [facility] Comment on above: Performed By: #### K U #### [facility] [address] [place] [address] Dr. Lisa Martinez Hemoglobin (Bld) [Mass/Vol] 11.1 g/dL Critically low 12.0-16.0 [facility] Comment on above: Performed By: #### K U #### [facility] [address] [address] [address] Lisa Martinez IG # 0.04 10e3/ul Critically high 0.00-0.03 [facility] Comment on above: Performed By: #### K U #### [facility] [address] [place] [address] Dr. Lisa Martinez IG % 0.4 % Normal 0.0-0.5 [facility] Comment on above: Performed By: #### K U #### [facility] [address] [address] [address] Lisa Martinez LYMPH # 1.0 103/ul Critically low 1.2-3.[address] [facility] Comment on above: Performed By: #### K U #### [facility] [address] [place] [address] Dr. Lisa Martinez Lymphocytes/100 WBC (Bld) 10.6 % Critically low 20.5-60.0 [facility] Comment on above: Performed By: #### K U #### [facility] [address] [address] [address] Lisa Martinez MANUAL DIFF REQ NO Normal [facility] Comment on above: Performed By: #### K U #### [facility] [address] [address] [address] Lisa Martinez MCH (RBC) [Entitic mass] 31.3 pg Normal 26.7-34.0 [facility] Comment on above: Performed By: #### K U #### [facility] [address] [place] [address] Dr. Lisa Martinez MCHC (RBC) [Mass/Vol] 32.1 g/dL Normal 29.9-35.2 [facility] Comment on above: Performed By: #### K U #### [facility] [address] [place] [address] Dr. Lisa Martinez MCV (RBC) [Entitic vol] 97.5 fL Normal 81.0-99.0 [facility] Comment on above: Performed By: #### K U #### [facility] [address] [place] [address] Dr. Lisa Martinez MONO # 0.9 103/ul Critically high 0.3-0.8 [facility] Comment on above: Performed By: #### K U #### [facility] [address] [place] [address] Dr. Lisa Martinez Monocytes/100 WBC (Bld) 9.5 % Normal 1.7-12.0 [facility] Comment on above: Performed By: #### K U #### [facility] [address] [place] [address] Dr. Lisa Martinez NEUT # 6.9 103/ul Critically high 1.4-6.5 [facility] Comment on above: Performed By: #### K U #### [facility] [address] [place] [address] Dr. Lisa Martinez Neutrophils/100 WBC (Bld) 75.5 % Critically high 43.0-75.0 [facility] Comment on above: Performed By: #### K U #### [facility] [address] [place] [address] Dr. Lisa Martinez Platelet mean volume (Bld) [Entitic vol] 9.9 fL Normal 9.5-13.5 [facility] Comment on above: Performed By: #### K U #### [facility] [address] [place] [address] Dr. Lisa Martinez PLT 255 103/ul Normal 150-450 [facility] Comment on above: Performed By: #### K U #### [facility] [address] [place] [address] Dr. Lisa Martinez RBC 3.55 106/ul Critically low 4.20-5.40 [facility] Comment on above: Performed By: #### K U #### [facility] [address] [address] [address] Lisa Martinez WBC 9.2 103/ul Normal 4.0-11.0 [facility] Comment on above: Performed By: #### K U #### [facility] [address] [address] [address] Lisa Martinez CRPon 02-12-2022 CRP 0.7 mg/dL Normal <=1.0 [facility] Comment on above: Performed By: #### B ORDER ENTRY CLERK, BMP #### [facility] [address] [address] [address] Lisa Martinez SED RATE WESTERGRENon 2021 SED RATE 56 mm/hr Critically high <=30 [facility] Comment on above: Performed By: #### S EDR ####[facility] [address] [address]Dr. Lisa Martinez URIC ACID SERUMon 02-12-2022 Urate [Mass/Vol] 9.2 mg/dL Critically high 2.6-6.0 [facility] Comment on above: Performed By: #### B ORDER ENTRY CLERK, BMP #### [facility] [address] [place] [address] Dr. Lisa Martinez XR FOOT LT MIN [...] ROSINA MENENDEZ Date: 2022-02-12 13:01 Normal [facility] HEMOGRAM AND PLATELon 2021 Hematocrit (Bld) [Volume fraction] 35.7 % Critically low 36.0-48.0 [facility] Comment on above: Performed By: #### U RCX #### [facility] [address] [place] [address] Dr. Lisa Martinez Hemoglobin (Bld) [Mass/Vol] 11.7 g/dL Critically low 12.0-16.0 [facility] Comment on above: Performed By: #### U RCX #### [facility] [address] [place] [address] Dr. Lisa Martinez MCH (RBC) [Entitic mass] 31.5 pg Normal 26.7-34.0 [facility] Comment on above: Performed By: #### U RCX #### [facility] [address] [place] [address] Dr. Lisa Martinez MCHC (RBC) [Mass/Vol] 32.8 g/dL Normal 29.9-35.2 [facility] Comment on above: Performed By: #### U RCX #### [facility] [address] [place] [address] Dr. Lisa Martinez MCV (RBC) [Entitic vol] 96.2 fL Normal 81.0-99.0 [facility] Comment on above: Performed By: #### U RCX #### [facility] [address] [place] [address] Dr. Lisa Martinez PLT 268 103/ul Normal 150-450 [facility] Comment on above: Performed By: #### U RCX #### [facility] [address] [place] [address] Dr. Lisa Martinez RBC 3.71 106/ul Critically low 4.20-5.40 [facility] Comment on above: Performed By: #### U RCX #### [facility] [address] [place] [address] Dr. Lisa Martinez WBC 9.3 103/ul Normal 4.0-11.0 [facility] Comment on above: Performed By: #### U RCX #### [facility] [address] [place] [address] Dr. Lisa Martinez PROF CHEM 8 (BAS METB)on Anion gap [Moles/Vol] 11.2 mmol/L Normal [facility] Comment on above: Performed By: #### C VDTBH #### [facility] [address] [address] [address] Lisa Martinez Calcium [Mass/Vol] 9.1 mg/dL Normal 8.5-10.1 [facility] Comment on above: Performed By: #### C VDTBH #### [facility] [address] [address] [address] Lisa Martinez Chloride [Moles/Vol] 104 mmol/L Normal 98-107 [facility] Comment on above: Performed By: #### C VDTBH #### [facility] [address] [place] [address] Dr. Lisa Martinez CO2 [Moles/Vol] 30.6 mmol/L Normal 21.0-32.0 [facility] Comment on above: Performed By: #### C VDTBH #### [facility] [address] [place] [address] Dr. Lisa Martinez Creatinine [Mass/Vol] 1.64 mg/dL Critically high 0.55-1.02 [facility] Comment on above: Performed By: #### C VDTBH #### [facility] [address] [place] [address] Dr. Lisa Martinez EGFR-AF [place] 36 mL/min/1.73m2 Critically low >=60 [facility] Comment on above: Performed By: #### C VDTBH #### [facility] [address] [place] [address] Dr. Lisa Martinez EGFR-NON AF [place] 30 mL/min/1.73m2 Critically low >=60 [facility] Comment on above: Performed By: #### C VDTBH #### [facility] [address] [address] [address] Lisa Martinez Glucose [Mass/Vol] 61 mg/dL Critically low 74-106 Th [facility] Comment on above: Performed By: #### C VDTBH #### [facility] [address] [place] [address] Dr. Lisa Martinez Potassium [Moles/Vol] 4.8 mmol/L Normal 3.5-5.1 [facility] Comment on above: Performed By: #### C VDTBH #### [facility] [address] [place] [address] [address] Lisa Martinez Sodium [Moles/Vol] 141 mmol/L Normal 136-145 [facility] Comment on above: Performed By: #### C VDTBH #### [facility] [address] [address] [address] Lisa Martinez Urea nitrogen [Mass/Vol] 34.0 mg/dL Critically high 7.0-18.0 [facility] Comment on above: Performed By: #### C VDTBH #### [facility] [address] [address] [address] Lisa Martinez Urea nitrogen/Creatinine [Mass ratio] 20.7 mg/mg Normal [facility] Comment on above: Performed By: #### C VDTBH #### [facility] [address] [address] [address] Lisa Martinez Cardiovascular Lab Reporton 12-21-2021 Cardiovascular Lab Report [facility] Patient Name: Fior Quinonese [facility] MR #: [id number] Physician: Josefina Weston of [facility] Service Date: 12/20/2021 Division of Birthdate: 1940 Cardiology Room #: [facility] Cardiovascular Services [address] [place] [address] Cardiovascular Laboratory Report INDICATION: The patient is [...] consent. She was brought to the lab intern in a fasting state. The right neck area was prepped and draped in usual fashion. Micropuncture technique and ultrasound guidance were used for access in the right internal jugular vein. A 6-[place] Citizen x 11 cm sheath was placed. A 6-[place] Citizen Becker catheter was used for right heart [...] Nova M.D. Date Trans: 12/21/2021 06:38 A/kali [id number] cc: Jasvir León M.D. 3 [facility] [id number] Normal [facility] Covid-19 PCR (CVDTB)on 12-07 SARS-CoV-2 (COVID-19) RNA RACIEL+probe Ql (Unsp spec) Not detected Normal NOT DETECTED [facility] Comment on above: Result Comment: This test is not yet approved or cleared by the [place] FDA. When there are no FDA-approved or cleared tests available, and other criteria are met, FDA can make tests available under an emergency access mechanism called an Emergency Use Authorization (EUA). The EUA for this test is supported by the [place] of Health and Human Service's (HHS's) declaration [...] SARS-CoV-2. Performed By: #### K U #### [facility] [address] [address] [address] Lisa Martinez HEMOGRAM AND PLATELon 2021 Hematocrit (Bld) [Volume fraction] 37.7 % Normal 36.0-48.0 [facility] Comment on above: Performed By: #### H H ####[facility] [address] [place] [address]DrIngrid Martinez Hemoglobin (Bld) [Mass/Vol] 11.8 g/dL Critically low 12.0-16.0 [facility] Comment on above: Performed By: #### H H ####[facility] [address] [place] [address]DrIngrid Martinez MCH (RBC) [Entitic mass] 30.7 pg Normal 26.7-34.0 [facility] Comment on above: Performed By: #### H H ####[facility] [address] [place] [address]DrIngrid Martinez MCHC (RBC) [Mass/Vol] 31.3 g/dL Normal 29.9-35.2 [facility] Comment on above: Performed By: #### H H ####[facility] [address] [place] [address]DrIngrid Martinez MCV (RBC) [Entitic vol] 98.2 fL Normal 81.0-99.0 [facility] Comment on above: Performed By: #### H H ####[facility] [address] [place] [phone]. Lisa Martinez PLT 238 103/ul Normal 150-450 [facility] Comment on above: Performed By: #### H H ####[facility] [address] [place] [phone]. Lisa Martinez RBC 3.84 106/ul Critically low 4.20-5.40 [facility] Comment on above: Performed By: #### H H ####[facility] [address] [place] [phone]. Lisa Juan WBC 8.6 103/ul Normal 4.0-11.0 [facility] Comment on above: Performed By: #### H H ####[facility] [address] [place] [address]Dr. Lisa Martinez PROF CHEM 8 (BAS METB)on Anion gap [Moles/Vol] 13.7 mmol/L Normal [facility] Comment on above: Performed By: #### B MP ####[facility] [address] [place] [address]Dr. Lisa Martinez Calcium [Mass/Vol] 9.1 mg/dL Normal 8.5-10.1 [facility] Comment on above: Performed By: #### B MP ####[facility] [address] [place] [address]Dr. iLsa Martinez Chloride [Moles/Vol] 107 mmol/L Normal 98-107 [facility] Comment on above: Performed By: #### B MP ####[facility] [address] [place] [phone]. Lisa Martinez CO2 [Moles/Vol] 26.9 mmol/L Normal 21.0-32.0 [facility] Comment on above: Performed By: #### B MP ####[facility] [address] [place] [phone]. Lisa Martinez Creatinine [Mass/Vol] 1.48 mg/dL Critically high 0.55-1.02 [facility] Comment on above: Performed By: #### B MP ####[facility] [address] [place] [phone]. Fabianachapis Juan EGFR-AF [place] 41 mL/min/1.73m2 Critically low >=60 [facility] Comment on above: Performed By: #### B MP ####[facility] [address] [place] [phone]. Fabianachapis Juan EGFR-NON AF [place] 34 mL/min/1.73m2 Critically low >=60 [facility] Comment on above: Performed By: #### B MP ####[facility] [address] [place] [phone]. Lisa Martinez Glucose [Mass/Vol] 161 mg/dL Critically high 74-106 [facility] Comment on above: Performed By: #### B MP ####[facility] [address] [place] [phone]. Lisa Martinez Potassium [Moles/Vol] 4.6 mmol/L Normal 3.5-5.1 [facility] Comment on above: Performed By: #### B MP ####[facility] [address] [place] [phone]. Lisa Martinez Sodium [Moles/Vol] 143 mmol/L Normal 136-145 [facility] Comment on above: Performed By: #### B MP ####[facility] [address] [place] [phone]. Lisa Martinez Urea nitrogen [Mass/Vol] 35.0 mg/dL Critically high 7.0-18.0 [facility] Comment on above: Performed By: #### B MP ####[facility] [address] [place] [phone]. Lisa Martinez Urea nitrogen/Creatinine [Mass ratio] 23.6 mg/mg Normal [facility] Comment on above: Performed By: #### B MP ####[facility] [address] [place] [phone]. Lisa Martinez Comprehensive Metabolic Pane yesica 08-17-2021 Albumin [Mass/Vol] 4.4 g/dL Normal 3.6-5.1 [facility] Comment on above: Performed By: #### C MP #### [facility] [address] [place], [place] [id number] Albumin/Globulin [Mass ratio] 1.4 {ratio} Normal 1.0-2.5 [facility] Comment on above: Performed By: #### C MP #### [facility] [address] [place], [place] [id number] ALP [Catalytic activity/Vol] 89 U/L Normal 35-119 [facility] Comment on above: Performed By: #### C MP #### [facility] [address] [place], [place] [id number] ALT [Catalytic activity/Vol] 13 U/L Normal 6-33 [facility] Comment on above: Result Comment: 06/08 Female reference range changed. Performed By: #### C MP #### [facility] [address] [place], [place] [id number] Anion gap [Moles/Vol] 18 mmol/L Normal 12-20 [facility] Comment on above: Result Comment: Effe ctive 07/14/2019 reference range changed. Performed By: #### C MP #### [facility] [address] [place], [place] [id number] AST [Catalytic activity/Vol] 20 U/L Normal 9-34 [facility] Comment on above: Performed By: #### C MP #### [facility] [address] [place], [place] [id number] Bilirubin [Mass/Vol] 0.34 mg/dL Normal 0.30-1.20 [facility] Comment on above: Performed By: #### C MP #### [facility] [address] [place], [place] [id number] BUN/CREA 28 Ratio High 6-22 [facility] Comment on above: Performed By: #### C MP #### [facility] [address] [place], [place] [id number] Calcium [Mass/Vol] 9.8 mg/dL Normal 8.6-10.2 [facility] [place] [employer] Comment on above: Performed By: #### C MP #### [facility] [address] [place], [place] [id number] Chloride [Moles/Vol] 106 mmol/L Normal 98-107 [facility] Comment on above: Performed By: #### C MP #### [facility] [address] [place], [place] [id number] CO2 [Moles/Vol] 23 mmol/L Normal 20-31 [facility] Comment on above: Performed By: #### C MP #### [facility] [address] [place], [place] [id number] Creatinine [Mass/Vol] 1.1 mg/dL Normal 0.6-1.4 [facility] Comment on above: Performed By: #### C MP #### [facility] [address] [place], [place] [id number] eGFRAA 59 mL/min/1.73m2 Low >60 [facility] Comment on above: Performed By: #### C MP #### [facility] [address] [place], [place] [id number] eGFRNAA 49 mL/min/1.73m2 Low >60 [facility] Comment on above: Performed By: #### C MP #### [facility] [address] [place], [place] [id number] Globulin (S) [Mass/Vol] 3.2 g/dL Normal 1.9-3.7 [facility] Comment on above: Performed By: #### C MP #### [facility] [address] [place], [place] [id number] Glucose [Mass/Vol] 51 mg/dL Low 65-99 [facility] Comment on above: Result Comment: For FASTING Glucose --- ADA reference ranges: Normal 65-99 mg/dl Prediabetes 100-125 Diabetes >/= 126 Performed By: #### C MP #### [facility] [address] [place], [place] [id number] Potassium [Moles/Vol] 4.5 mmol/L Normal 3.5-5.5 [facility] Comment on above: Performed By: #### C MP #### [facility] [address] [place], [place] [id number] Protein [Mass/Vol] 7.6 g/dL Normal 6.1-8.1 [facility] [place] [employer] Comment on above: Performed By: #### C MP #### [facility] [address] [place], [place] [id number] Sodium [Moles/Vol] 143 mmol/L Normal 135-146 [facility] [place] [employer] Comment on above: Performed By: #### C MP #### [facility] [address] [place], [place] [id number] Urea nitrogen [Mass/Vol] 31 mg/dL High 7-25 [facility] Comment on above: Performed By: #### C MP #### [facility] [address] [place], [place] [id number] Complete Blood Counton 08-03 Erythrocyte distribution width (RBC) [Ratio] 13.2 % Normal 11.0-15.0 [facility] [employer] Comment on above: Performed By: #### C BC, TSH, FT3, FT4, CMP #### [facility] [address] [place], [place] [id number] Hematocrit (Bld) [Volume fraction] 36.6 % Normal 35.0-47.0 [facility] [employer] Comment on above: Performed By: #### C BC, TSH, FT3, FT4, CMP #### [facility] [address] [place], [place] [id number] Hemoglobin (Bld) [Mass/Vol] 11.4 g/dL Low 11.6-15.5 [facility] [employer] Comment on above: Performed By: #### C BC, TSH, FT3, FT4, CMP #### [facility] [address] [place], [place] [id number] MCH (RBC) [Entitic mass] 31.1 pg Normal 27.0-33.0 [facility] Comment on above: Performed By: #### C BC, TSH, FT3, FT4, CMP #### [facility] [address] [place], [place] [id number] MCHC (RBC) [Mass/Vol] 31.1 g/dL Low 32.0-36.0 [facility] Comment on above: Performed By: #### C BC, TSH, FT3, FT4, CMP #### [facility] [address] [place], [place] [id number] MCV (RBC) [Entitic vol] 100 fL Normal 80-100 [facility] Comment on above: Performed By: #### C BC, TSH, FT3, FT4, CMP #### [facility] [address] [place], [place] [id number] Platelet mean volume (Bld) [Entitic vol] 10.10 fL Normal 7.50-12.50 [facility] Comment on above: Performed By: #### C BC, TSH, FT3, FT4, CMP #### [facility] [address] [place], [place] [id number] Platelets (Bld) [#/Vol] 245 10*3/uL Normal 140-400 [facility] Comment on above: Performed By: #### C BC, TSH, FT3, FT4, CMP #### [facility] [address] [place], [place] [id number] RBC (Bld) [#/Vol] 3.66 10*6/uL Low 3.90-5.20 [facility] Comment on above: Performed By: #### C BC, TSH, FT3, FT4, CMP #### [facility] [address] [place], [place] [id number] RDW-SD 48.1 fL Normal 37.0-50.0 [facility] Comment on above: Performed By: #### C BC, TSH, FT3, FT4, CMP #### [facility] [address] [place], [place] [id number] WBC (Bld) [#/Vol] 8.7 10*3/uL Normal 3.8-11.0 [facility] [employer] Comment on above: Performed By: #### C BC, TSH, FT3, FT4, CMP #### [facility] [address] [place], [place] [id number] Comprehensive Metabolic Pane yesica 08-03-2021 Albumin [Mass/Vol] 3.9 g/dL Normal 3.6-5.1 [facility] [employer] Comment on above: Performed By: #### C BC, TSH, FT3, FT4, CMP #### [facility] [address] [place], [place] [id number] Albumin/Globulin [Mass ratio] 1.1 {ratio} Normal 1.0-2.5 [facility] Comment on above: Performed By: #### C BC, TSH, FT3, FT4, CMP #### [facility] [address] [place], [place] [id number] ALP [Catalytic activity/Vol] 105 U/L Normal 35-119 [facility] Comment on above: Performed By: #### C BC, TSH, FT3, FT4, CMP #### [facility] [address] [place], [place] [id number] ALT [Catalytic activity/Vol] 10 U/L Normal 6-33 [facility] Comment on above: Result Comment: 06/08 Female reference range changed. Performed By: #### C BC, TSH, FT3, FT4, CMP #### [facility] [address] [place], [place] [id number] Anion gap [Moles/Vol] 20 mmol/L Normal 12-20 [facility] Comment on above: Result Comment: Effe ctive 07/14/2019 reference range changed. Performed By: #### C BC, TSH, FT3, FT4, CMP #### [facility] [address] [place], [place] [id number] AST [Catalytic activity/Vol] 19 U/L Normal 9-34 [facility] Comment on above: Performed By: #### C BC, TSH, FT3, FT4, CMP #### [facility] [address] [place], [place] [id number] BUN/CREA 24 Ratio High 6-22 [facility] Comment on above: Performed By: #### C BC, TSH, FT3, FT4, CMP #### [facility] [address] [place], [place] [id number] Calcium [Mass/Vol] 9.6 mg/dL Normal 8.6-10.2 [facility] Comment on above: Performed By: #### C BC, TSH, FT3, FT4, CMP #### [facility] [address] [place], [place] [id number] Chloride [Moles/Vol] 106 mmol/L Normal 98-107 [facility] Comment on above: Performed By: #### C BC, TSH, FT3, FT4, CMP #### [facility] [address] [place], [place] [id number] CO2 [Moles/Vol] 21 mmol/L Normal 20-31 [facility] Comment on above: Performed By: #### C BC, TSH, FT3, FT4, CMP #### [facility] [address] [place], [place] [id number] Creatinine [Mass/Vol] 2.6 mg/dL High 0.6-1.4 [facility] Comment on above: Performed By: #### C BC, TSH, FT3, FT4, CMP #### [facility] [address] [place], [place] [id number] eGFRAA 22 mL/min/1.73m2 Low >60 [facility] Comment on above: Performed By: #### C BC, TSH, FT3, FT4, CMP #### [facility] [address] [place], [place] [id number] eGFRNAA 18 mL/min/1.73m2 Low >60 [facility] Comment on above: Performed By: #### C BC, TSH, FT3, FT4, CMP #### [facility] [address] [place], [place] [id number] Globulin (S) [Mass/Vol] 3.4 g/dL Normal 1.9-3.7 [facility] Comment on above: Performed By: #### C BC, TSH, FT3, FT4, CMP #### [facility] [address] [place], [place] [id number] Glucose [Mass/Vol] 93 mg/dL Normal 65-99 [facility] Comment on above: Result Comment: For FASTING Glucose --- ADA reference ranges: Normal 65-99 mg/dl Prediabetes 100-125 Diabetes >/= 126 Performed By: #### C BC, TSH, FT3, FT4, CMP #### [facility] [address] [place], [place] [id number] Potassium [Moles/Vol] 6.9 mmol/L Critically high 3.5-5.5 [facility] [employer] Comment on above: Result Comment: Repo rt given to Dr León (Ragini) Performed By: #### C BC, TSH, FT3, FT4, CMP #### [facility] [address] [place], [place] [id number] Protein [Mass/Vol] 7.3 g/dL Normal 6.1-8.1 [facility] [place] [employer] Comment on above: Performed By: #### C BC, TSH, FT3, FT4, CMP #### [facility] [address] [place], [place] [id number] Sodium [Moles/Vol] 139 mmol/L Normal 135-146 [facility] [place] [employer] Comment on above: Performed By: #### C BC, TSH, FT3, FT4, CMP #### [facility] [address] [place], [place] [id number] TBIL <0.3 Normal [facility] [employer] Comment on above: Performed By: #### C BC, TSH, FT3, FT4, CMP #### [facility] [address] [place], [place] [id number] Urea nitrogen [Mass/Vol] 62 mg/dL High 7-25 [facility] [employer] Comment on above: Performed By: #### C BC, TSH, FT3, FT4, CMP #### [facility] [address] [place], [place] [id number] Free T3on 08-03-2021 FT3 2.05 pg/mL Normal 2.00-4.40 [facility] [employer] Comment on above: Performed By: #### C BC, TSH, FT3, FT4, CMP #### [facility] [address] [place], [place] [id number] Free T4on 08-03-2021 Free T4 [Mass/Vol] 0.91 ng/dL Normal 0.80-1.80 [facility] [place] [employer] Comment on above: Performed By: #### C BC, TSH, FT3, FT4, CMP #### [facility] [address] [place], [place] [id number] Q - B-TYPE NATRIURETIC (BNP) on 08-03-2021 Natriuretic peptide B (Bld) [Mass/Vol] 283 pg/mL High <100 [facility] [employer] Comment on above: Order Comment: [facility] Testing performed at: QPT, [facility], [address], [address] [facility], [place], [address], Map Clerk: Boone Calderón MD [facility] Collection Date/Time: [id number] [facility] Results Received Date/Time: [facility] Reported Date/Time: Result Comment: BNP levels increase with age in the general population with the highest values seen in individuals greater than 75 years of age. Reference: J. Am. Priya. Cardiol. 2002; 40:976-982. Performed By: #### [id number] #### [facility] Default [address] [place] [address] TSHon 08-03-2021 TSH 3.450 uIU/mL Normal 0.400-4.500 [facility] io [employer] Comment on above: Performed By: #### C BC, TSH, FT3, FT4, CMP #### [facility] [address] [place], [place] [id number] COVID Quick Testingon 2020 Result Negative [employer] Other Quick Fluon 06-06-2021 FLUAV Ab CF (S) [Titer] Negative [employer] Other FLUBV Ab CF (S) [Titer] Negative [employer] Other Vital Signs Date Time Vital Sign Value Performing Clinician Facility 05-08-2024 11:16-0400 Body height 154.9 cm Jasvir León MD Work Phone: [facility] 05-08-2024 11:16-040 Body mass index (BMI) [Ratio] 27.78 kg/m2 Jasvir León MD Work Phone: [facility] 05-08-2024 11:16040 Body weight 66.68 kg Jasvir León MD Work Phone: [facility] 05-08-2024 11:16-0400 Diastolic blood pressure 70 mm[Hg] Jasvir León MD Work Phone: [facility] 05-08-2024 11:16-0400 Heart rate 58 /min Jasvir León MD Work Phone: [facility] 05-08-2024 11:16-0400 SaO2% (BldA) [Mass fraction] 96 % Jasvir León MD Work Phone: [facility] 05-08-2024 11:16-0400 Systolic blood pressure 128 mm[Hg] Jasvir León MD Work Phone: [facility] 04-25-2024 16:40-0400 Body height 157.48 cm II Jasvir León Work Phone: [facility] 04-25-2024 13:31-0400 Diastolic blood pressure 69 mm[Hg] II Jasvir León Work Phone: [facility] 04-25-2024 13:31-0400 Heart rate 76 /min II Jasvir León Work Phone: [facility] 04-25-2024 13:31-0400 Systolic blood pressure 157 mm[Hg] II Jasvir León Work Phone: [facility] 04-25-2024 12:00-0400 Inhaled oxygen flow rate 3 L/min II Jasvir León Work Phone: [facility] 04-25-2024 08:00-0400 Body temperature 97.7 [degF] II Jasvir León Work Phone: [facility] 04-25-2024 08:00-0400 Respiratory rate 22 /min II Jasvir León Work Phone: [facility] 04-25-2024 08:00-0400 SaO2% (BldA) [Mass fraction] 98 % II Jasvir León Work Phone: [facility] 04-25-2024 02:25-0400 Body weight 75.2 kg II Jasvir León Work Phone: [facility] 08-07-2023 10:53-0500 Diastolic blood pressure 64 mm[Hg] Kd Hines MD Work Phone: [employer] 08-07-2023 10:53-0500 Heart rate 109 /min Kd Hines MD Work Phone: [employer] 08-07-2023 10:53-0500 Respiratory rate 18 /min Kd Hines MD Work Phone: [employer] 08-07-2023 10:53-0500 SaO2% (BldA) [Mass fraction] 90 % Kd Hines MD Work Phone: [employer] 08-07-2023 10:53-0500 Systolic blood pressure 94 mm[Hg] Kd Hines MD Work Phone: [employer] 06-06-2021 12:45-0500 Body height 157.48 cm Mariam Ginty Other [employer] Other 06-06-2021 12:45-0500 Body mass index (BMI) [Ratio] 34.75 kg/m2 Mariam Ginty Other [employer] Other 06-06-2021 12:45-0500 Body temperature 96.8 [degF] Mariam Ginty Other [employer] Other 06-06-2021 12:45-0500 Body weight 86.18 kg Mariam Ginty Other [employer] Other 06-06-2021 12:45-0500 Diastolic blood pressure 78 mm[Hg] Mariam Ginty Other [employer] Other 06-06-2021 12:45-0500 SaO2% (BldA) [Mass fraction] 94 % Mariam Ginty Other [employer] Other 06-06-2021 12:450500 Systolic blood pressure 131 mm[Hg] Mariam Ward Other [employer] Other Encounters Encounter Date Encounter Type Care Provider Facility Start: 05-29-2024 ambulatory CRAIG [facility] Start: 05-29-2024 End: 05-29-2024 ambulatory HOMA [facility] Start: 05-29-2024 End: 05-29-2024 ambulatory HOMA [facility] Start: 05-27-2024 End: 05-27-2024 ambulatory JOSEFINA MARTINEZCINTHYAFROY [facility] Start: 05-13-2024 End: 05-13-2024 ambulatory BRENT BEECKER [facility] Start: 05-08-2024 End: 05-08-2024 Bamboo flowsheet Jasvir [...] of inpatient II Jasvir León Work Phone: [facility] Work Phone: Start: 02-18-2024 End: 02-18-2024 ambulatory JASVIR LEÓN Not Available Start: 01-07-2024 End: 01-07-2024 ambulatory JOSEFINA NOVA [facility] Start: 12-26-2023 End: 12-26-2023 ambulatory JASVIR B KHARI Not Available Start: 12-07-2023 End: 12-07-2023 ambulatory FARZANEH YRIS [facility] Start: 10-09-2023 End: 10-09-2023 ambulatory SARAH Partida JENNIFER Not Available Start: 08-07-2023 End: 08-07-2023 ambulatory [facility] Start: 08-07-2023 End: 08-07-2023 Subsequent hospital visit by physician Kd Hines MD Work Phone: [facility] Start: 08-02-2023 End: 08-02-2023 ambulatory JASVIR B KHARI Not Available Start: 07-30-2023 End: 07-30-2023 ambulatory DAWOOD ALEXANDRE Not Available Start: 06-28-2023 End: 06-28-2023 ambulatory ODALYS Ingrid RUSSO Not Available Start: 05-29-2023 End: 05-29-2023 ambulatory [facility] Start: 05-23-2023 End: 05-23-2023 ambulatory JASVIR B KHARI Not Available Start: 05-09-2023 ambulatory JASVIR LEÓN [facility] Start: 05-09-2023 End: 05-09-2023 ambulatory [facility] Start: 12-06-2022 ambulatory BRENT ZAIDI Facility :[facility] [...] Encounter for preprocedural laboratory examination [facility] Start: 12-20-2021 End: 12-21-2021 ambulatory GRETTA SHAHRAM Facility:[facility] Start: 12-16-2021 End: 12-17-2021 ambulatory GRETTA OMALLEY Facility:[facility] Start: 12-16-2021 End: 12-17-2021 Encounter for preprocedural laboratory examination GRETTA OMALLEY Facility:[facility] Start: 06-06-2021 End: 06-06-2021 ambulatory Mariam Ward Other [employer] Other Start: 06-06-2021 Office outpatient vi sit 15 minutes Mariam Sylvia [facility] Procedures Date Procedure Procedure Detail Performing Clinician Start: 04-25-2024 CT angiography of thorax II Jasvir León Work Phone: Start: 11-21-2022 Laboratory test resu lt abnormal Abnormal laboratory test Rosina GREER Work Phone: Plan of Treatment Date Care Activity Detail Author Start: 07-30-2025 Glaucoma screening Diabetes: R etinopathy Screening [facility] Start: 11-19-2024 End: 11-19-2024 Patient encounter procedure 11/19/2024 11:00 AM EDT Office Visit [facility] [address] [place] [phone] Ariel Foss MD [address] [place] [address] [facility] Start: 08-02-2024 Urine screening for protein Diabetes: Urine Protein Screening [facility] Start: 06-09-2024 End: 06-09-2024 Patient encounter procedure 06/09/2024 11:30 AM EST Office Visit [facility] [address] [facility] [address] [place] [address] Jasvir León MD [address] [facility] [address] [place] [address] [facility] Start: 05-19-2024 End: 05-19-2024 Patient encounter procedure 05/19/2024 10:45 AM EST Office Visit [facility] [address] [facility] [address] [place] [phone] Jasvir León MD [address] [facility] [address] [place] [address] [facility] Start: 05-08-2024 End: 05-08-2024 Patient encounter procedure [facility] Comment on above: Arrived Start: 04-25-2024 [facility] Start: 04-25-2024 Radionuclide myocard ial perfusion stress study NM lissy perf SPECT rest & str [facility] Start: 04-25-2024 Catheterization of l eft heart CL *Left Heart Cath (LHC) [facility] Start: 04-25-2024 Hospital admission [facility] Start: 03-27-2024 Hemoglobin A1c measurement Diabetes: Hemoglobin A1C [facility] Start: 08-07-2023 End: 08-07-2023 Njx dx/ther agt pvrt facet jt lmbr/sac 1 level LUMBAR MEDIAL BRANCH BLOCK Lumbar spondylosis 08/07/2023 10:37 AM [facility] Start: 08-07-2023 End: 08-07-2023 Njx dx/ther agt pvrt facet jt lmbr/sac 2nd level LUMBAR MEDIAL BRANCH BLOCK Lumbar spondylosis 08/07/2023 10:37 AM EST [facility] Start: 06-04-2023 Annual Wellness Visi t (Medicare) Annual Wellness Visit (Medicare) [facility] Start: 1999 Respiratory Syncytia l Virus (RSV) or age 60 yrs+ (1 - 1-dose 60+ series) Respiratory Syncytial Virus (RSV) or age 60 yrs+ (1 - 1-dose 60+ series) [facility] Start: 1958 DTaP/Tdap/Td vaccine (1 - Tdap) DTaP/Tdap/Td vaccine (1 - Tdap) [facility] Start: 1951 Depression Screen Depression Screen [facility] Start: 1949 Lipid panel Lipids [facility] Oxygen therapy [[facility] Data Set] Initiate Oxygen Therapy Protocol Respiratory Care Routine As Needed until discontinued starting 08/07/2023 [facility] Work Phone: Comment on above: As Needed until disc ontinued starting 08/07/2023 Patient referral [facility] Work Phone: Immunizations Immunization Date Immunization Notes Care Provider [facility] 09-11-2023 zoster vaccine recombinant Rosina Hemmer PA Work Phone: [facility] 06-06-2023 zoster vaccine recombinant Rosina Hemmer PA Work Phone: [facility] 05-21-2023 Pfizer Coleman Cap SARS-CoV-2 Vaccination Rosina Hemmer PA Work Phone: [facility] Work Phone: 05-13-2023 Influenza, Seasonal, Quadrivalent, Adjuvanted Rosina Hemmer PA Work Phone: [facility] 05-16-2021 SARS-CoV-2, Unspecified Zoie n Hemmer PA Work Phone: [facility] 04-29-2021 influenza, high dose seasonal, preservative-free Rosina Hemmer PA Work Phone: [facility] 04-29-2021 Influenza, Seasonal, Quadrivalent, Adjuvanted Rosina Hemmer PA Work Phone: [facility] 08-29-2020 SARS-CoV-2, Unspecified Zoie n Hemmer PA Work Phone: [facility] 07-31-2020 SARS-CoV-2, Unspecified Zoie n Hemmer PA Work Phone: [facility] 03-22-2020 influenza, injectabl e, quadrivalent, preservative free Rosina Hemmer PA Work Phone: [facility] 06-12-2019 zoster vaccine recombinant Rosina Hemmer PA Work Phone: [facility] 03-20-2019 Seasonal trivalent influenza vaccine, adjuvanted, preservative free Rosina Hemmer PA Work Phone: [facility] 03-20-2019 zoster vaccine recombinant Rosina Hemmer PA Work Phone: [facility] 04-22-2018 influenza, high dose seasonal, preservative-free Rsoina Hemmer PA Work Phone: [facility] 03-29-2017 influenza, high dose seasonal, preservative-free Rosina Hemmer PA Work Phone: [facility] 08-26-2016 pneumococcal conjuga te vaccine, 13 valent Rosina Hemmer PA Work Phone: [facility] 03-30-2016 influenza, injectabl e, quadrivalent, contains preservative Rosina Hemmer PA Work Phone: [facility] 03-30-2016 influenza, injectabl e, quadrivalent, preservative free Rosina Hemmer PA Work Phone: [facility] 03-25-2015 pneumococcal polysaccharide vaccine, 23 valent Rosina Hemmer PA Work Phone: [facility] 03-25-2015 seasonal influenza, intradermal, preservative free Rosina Hemmer PA Work Phone: [facility] 04-02-2014 seasonal influenza, intradermal, preservative free Rosina Hemmer PA Work Phone: [facility] 03-31-2014 tetanus and diphther ia toxoids, adsorbed, preservative free, for adult use (5 Lf of tetanus toxoid and 2 Lf of diphtheria toxoid) II Jasvir León Work Phone: [facility] 03-31-2014 tetanus toxoid, redu seymour diphtheria toxoid, and acellular pertussis vaccine, adsorbed Mariam Ginty Other [facility] [employer] Other 09-01-2013 tetanus and diphther ia toxoids, adsorbed, preservative free, for adult use (5 Lf of tetanus toxoid and 2 Lf of diphtheria toxoid) JEWELL León Work Phone: [facility] 09-01-2013 tetanus toxoid, redu seymour diphtheria toxoid, and acellular pertussis vaccine, adsorbed Mariam Ginty Other [facility] [employer] Other 03-25-2012 zoster vaccine, live Rosina GREER Work Phone: [facility] 04-26-2010 pneumococcal polysaccharide vaccine, 23 valent Rosina GREER Work Phone: [facility] Healthcare Payers Date Payer Category Payer Self-pay 2022 [employer] ( and others) [id number] 2016 [employer] ( and others) [id number] 2016 () [id number] 2016 [employer] ( and others) [id number] 2004 Medicare MEDICARE [id number] [facility] ( and others) [id number] 1959 Medicare [id number] 1939 Unknown [id number] 2.16.840.1.969131.3.579.2 .647 1939 Unknown [id number] 2.16.840.1.648993.3.579.2 .593 1939 Unknown [id number] 2.16.840.1.149794.3.579.2 .593 1939 Unknown [id number] 2.16.840.1.466905.3.579.2 .593 1939 Unknown [id number] 2.16.840.1.089027.3.579.2 .593 1939 Unknown [id number] 2.16.840.1.383607.3.579.2 .593 1939 Unknown [id number] 2.16.840.1.311211.3.579.2 .593 1939 Unknown [id number] 2.16.840.1.655243.3.579.2 .593 1939 Unknown [id number] 2.16.840.1.017385.3.579.2 .593 1939 Unknown [id number] 2.16.840.1.365577.3.579.2 .593 1939 Unknown [id number] 2.16.840.1.511837.3.579.2 .593 1939 Unknown [id number] 2.16.840.1.534453.3.579.2 .593 1939 Unknown [id number] 2.16.840.1.438880.3.579.2 .593 1939 Unknown [id number] 2.16.840.1.261511.3.579.2 .593 1939 Unknown [id number] 2.16.840.1.516921.3.579.2 .593 1939 Unknown [id number] 2.16.840.1.588999.3.579.2 .754 1939 Unknown [id number] 2.16.840.1.969598.3.579.2 .754 1939 Unknown [id number] 2.16.840.1.392378.3.579.2 .754 1939 Unknown [id number] 2.16.840.1.801716.3.579.2 .754 1939 Unknown [id number] 2.16.840.1.761718.3.579.2 .1259 1939 Unknown [id number] 2.16.840.1.948303.3.579.2 .1259 1939 Unknown [id number] 2.16.840.1.149250.3.579.2 .1259 1939 Unknown [id number] 2.16.840.1.568284.3.579.2 .1259 1939 Unknown [id number] 2.16.840.1.966146.3.579.2 .1259 1939 Unknown [id number] 2.16.840.1.641189.3.579.2 .1259 1939 Unknown [id number] 2.16.840.1.066916.3.579.2 .1259 1939 Unknown [id number] 2.16.840.1.466271.3.579.2 .1259 Medicare [id number] 2.16.840.1.347713.19 Unknown [id number] 2.16.840.1.008258.3.579.2 .531 Social History Date Type Detail Facility Start: 04-11-2023 End: 05-30-2023 Sex Assigned At [facility] [employer] [facility] Start: 12-11-2022 End: 05-08-2023 Tobacco smoking status [email or web address] Ex-smoker [employer] Phone: End: 07-09-1996 History of tobacco use Current smoker [employer] Phone: End: 07-09-1996 History of tobacco use Cigarette Smoker [employer] Phone: Start: 12-11-2022 End: 05-08-2023 Tobacco use and exposure Smokeless tobacco non-user [employer] Phone: Start: 05-30-2023 Alcohol intake Ex-drinker (finding) [employer] Phone: Start: 04-11-2023 End: 05-30-2023 History of Social function [employer] Phone: Start: 05-08-2023 Alcohol Comment social [employer] Work Phone: Start: 1940 Sex Assigned At Not on file [facility] Work Phone: Start: 1940 Sex Assigned At Female F [facility] Start: 04-28-2024 End: 05-08-2024 Alcoholic beverage intake Current drinker of alcohol (finding) [facility] Healthcare Start: 04-11-2023 Alcohol Comment 1-2 drinks 2-4 times a month,,caffeine intake: 2-3 cups per day [facility] Medical Equipment Procedure Code Equipment Code Equipment Origin al Text Equipment Identifier Dates Kyphon Tim [employer] [id number] Start: 05-09-2023 Comment on above: Description: T12 Ref# [id number] by In Vitro route [id number] 1 each by Other route in the morning and 1 each in the evening and 1 each before bedtime. Use as instructed. [id number] Start: 06-29-2023 End: 06-28-2024 Goals Date Patient Goal Desired Activity /State Clinical Notes 06-06-2021 to 05-29-2024 Jasvir León MD - 05/08/2024 11:15 AM EDTTelephone Encounter - ZOEY An - 04/29/2024 4:55 PM EDTTelephone Encounter - ZOEY An - 04/29/2024 4:55 PM EDT Note Date & Type Note Facility 05-29-2024 Note Cardiothoracic Surge ry Outpatient Consultation Note 05/29/2024 Reason For Visit Chief Complaint Patient presents with New Patient TAVR History Of Present Illness Jenni Quinones is a 84 y.o. female referred to CT surgery for evaluation of recurrent aortic stenosis. The patient had SAVR with a Trifecta 23 mm aortic valve placed in 2005 , along with left atrial appendage excision and a Maze procedure. Patient has had problems with recurrent atrial fibrillation since that time, but has been doing well until recent onset of worsening shortness of breath and an episode of chest pain this past April necessitating an emergency room visit.. She has been having dizziness as well, but no signs of syncope. The patient has a known history of pulmonary hypertension with PA pressures of 56/30 and a wedge of 20. Her aortic valve was found to have recurrent stenosis with a mean gradient of 37 and a peak gradient of 64 mmHG. The velocity is 4.02 m/s. She has mild aortic regurgitation mild mitral regurgitation. Severe Tr. EF 55%. Cardiac catheteriztion on 05/27/24 revealed minimal CAD and severe pulmonary HTN with 7.95 COOK. She also has a past medical history of a CVA in 2018, former smoking Hx, history of hypertension, ZIA and cholecystectomy. The patient had a recent fall on March and had left sided nondisplaced rib fractures but this has mostly healed since that time.. Assessment: This 84 yo patient has severe recurrent aortic valve stenosis status post trifecta aortic valve replacement in 2011. Patient also had LAAP excision and MAZE procedure. Patient has severe dyspnea on exertion, chest pain, and systolic and diastolic heart failure with permanent atrial fibrillation. She has nonrheumatic mitral valve stenosis , severe pulmonary hypertension and stage 3a CKD. Plan : -Patient seen and evaluated by Cardiothoracic Team. I personally examined the patient and reviewed The Cardiac Catherization, Echocardiogram, CXR, and Other Diagnostic Testing. Findings discussed with equipment analyst and patient. Explained current disease process and reviewed treatment options. -CT Surgery Recommendation: -This pleasant 84-year-old woman has a calculated STS Risk Score for redo SAVR of 24.2%. Given the multiple risk factors described above in addition to her clinical frailty, I believe that the most appropriate management for this high risk 84 yo woman with recurrent severe symptomatic stenosis of her Trifecta size 23mm aortic valve bioprosthesis would be to proceed with valve in valve TAVR. Patient will need dental clearance, and she is, in fact, scheduled to see the dentist next week. Craig Braun MD Ct Surgery . Past Medical History She has a past medical history of Abnormal ECG, Anemia, Aortic valve disorder (04/20/2016), Arrhythmia, Atrial fibrillation (CMS/HCC), Bradycardia, CHF (congestive heart failure) (CMS/HCC), Heart valve disease, Hyperlipidemia, Hypertension, and Sleep apnea. Surgical History She has a past surgical history that includes Cardiac catheterization (12/20/2021); Aortic valve replacement (05/04/2016); Knee surgery; and CTA Abdomen Pelvis W IV Contrast (08/19/2018). Family History Family History Problem Relation Name Age of Onset Diabetes Father Heart failure Father Other (neoplastic disease) Other Social History She reports that she has quit smoking. Her smoking use included cigarettes. She has never used smokeless tobacco. She reports that she does not currently use alcohol. She reports that she does not use drugs. Allergies Codeine, Entresto [sacubitril-valsartan], and Penicillins Medications Current Outpatient Medications Medication Sig Dispense Refill ALPRAZolam (Niravam) 0.25 mg disintegrating tablet Take 0.25 mg by mouth if needed in the morning, at noon, and at bedtime for anxiety. aspirin 81 mg EC tablet Take 81 mg by mouth in the morning. atorvastatin (Lipitor) 20 mg tablet Take 1 tablet by mouth at bedtime. buPROPion SR (Wellbutrin SR) 150 mg 12 hr tablet Take 1 tablet by mouth in the morning and at bedtime. carvedilol (Coreg) 12.5 mg tablet Take 1 tablet (12.5 mg) by mouth with breakfast and with evening meal. 60 tablet 0 colchicine 0.6 mg tablet Take 0.6 mg by mouth if needed. digoxin (Lanoxin) 125 MCG tablet Take 125 mcg by mouth in the morning. empagliflozin (Jardiance) 10 mg Take 1 tablet (10 mg) by mouth in the morning. 30 tablet 11 escitalopram (Lexapro) 10 mg tablet Take 1 tablet by mouth in the morning. furosemide (Lasix) 40 mg tablet Take 40 mg by mouth in the morning. gabapentin (Neurontin) 100 mg capsule take 1 capsule by mouth three times a day insulin lispro protamin-lispro (HumaLOG Mix 75-25) 100 unit/mL (75-25) injection INJECT 15 UNITS SUBCUTANEOUSLY IN THE MORNING AND 10 UNITS IN THE EVENING levothyroxine (Synthroid, Levoxyl) 50 mcg tablet Take 50 mcg by mouth before breakfast. omeprazole (PriLOSEC) 40 m (more content not included)... [facility] 05-27-2024 Note Patient: Jenni Liao se Procedure Information Date/Time: 05/27/24 1000 Procedures: Right heart cath Coronary angiography Location: [facility] MICROBIOLOGY [facility] TECHNICIAN 3 / [facility] (Cath) Providers: Josefina Nova MD Clinical information reviewed: Physical Exam Airway Mallampati: III TM distance: >3 FB Neck ROM: full Cardiovascular Rhythm: regular Rate: normal Dental Pulmonary Breath sounds clear to auscultation Abdominal Anesthesia Plan ASA 3 other (Conscious sedation.) Anesthetic plan and risks discussed with patient. Use of blood products discussed with patient who consented to blood products. Additional Equipment Requests [facility] 05-27-2024 Note Report given to Torey turner RN. RN verbalized how FARA went and medications given during the procedure. [facility] 05-27-2024 Note Patient: Jenni Liao se Procedure Information Date/Time: 05/27/24 0830 Procedure: TRANSESOPHAGEAL ECHO (FARA) Location: [facility] Clinical information reviewed: Allergies Meds OB Status Physical Exam Airway Mallampati: III TM distance: >3 FB Neck ROM: full Cardiovascular Rhythm: regular Rate: normal Dental Pulmonary Abdominal Anesthesia Plan ASA 3 (Conscious sedation) Anesthetic plan and risks discussed with patient. Use of blood products discussed with patient who consented to blood products. Plan discussed with attending. Additional Equipment Requests [facility] 05-13-2024 Note Cardiovascular Medic [facility] SUBJECTIVE Chief Complaint Patient presents with Valve [...] c/o chest pain. She was transferred to [facility] for further cardiac care. 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 [facility] 05-13-2024 Note Patient here for 3 m o follow up aortic/mitral valve stenosis, diastolic heart failure, and permanent afib. She was admitted to [facility] a few weeks ago for chest pain. [...] systems reviewed and are negative. [facility] 05-08-2024 History of Present illness Narrative Images from the original note were not included. HPI Follow-up Additional comments: [facility] stay 04/11/24-04/13/24 after fall at home with rib fractures discharged to [facility] 04/24/24-04/25/24 dx: CP Discharged home from [place] 04/30/24 Shortness of Breath Additional comments: Had echo yesterday ordered by cardiology has appt with cardiology next week Using 02 continuously Med Refill Additional comments: Hydrocodone--DM [place] Last edited by Bev Mejia LPN on 05/08/2024 11:24 AM. Subjective Patient ID: Jenni Quinones is a 84 y.o. female who presents for Follow-up ([facility] stay 04/11/24-04/13/24 after fall at home with rib fractures discharged to [facility] 04/24/24-04/25/24 dx: CP/Discharged home from [place] 04/30/24), Shortness of Breath (Had echo yesterday ordered by cardiology has appt with cardiology next week/Using 02 continuously ), and Med Refill (Hydrocodone--DM [place]). Flowsheet Row Patient Outreach from 04/30/2024 in [facility] with Monica Ross LPN Hospital Information ED, Hospital or Correction Facility Discharge? Correction Facility Discharged To: Home Setting Engagement Medications [...] Management What is the home health agency? [facility] HOME HEALTH NURSE/PT/OT Has home health visited [...] muscle spasms. 30 tablet 3 [DISCONTINUED] HYDROcodone-acetaminophen ([place]) 5-325 MG tablet Take 1 tablet by [...] History: Diagnosis Date Abnormal echocardiogram 09/06/2020 Asthma ([facility]) Atrial flutter ([facility] CHF (congestive heart failure) ([facility] Diabetes ([facility]) Diverticulosis Enthesopathy of left foot 02/2016 Enthesopathic spurring of calcaneous of left foot per xray Feb 2016 History of being hospitalized 04/25/2024 Chest Pain, ECG Changes HTN (hypertension) ([facility]/HCC) Hyperlipidemia ([facility]) Routine general medical examination at health care facility Sleep apnea Past Surgical History: Procedure Laterality Date AORTIC VALVE REPLACEMENT 04/2016 and MAZE procedure BLADDER SUSPENSION BUNIONECTOMY Left CARDIAC CATHETERIZATION CARDIAC CATHETERIZATION 2009 CAT[address]ACT EXTRA[address] Bilateral [address] Alexandre CHOLECYSTECTOMY COLONOSCOPY 2012 CT ANGIOGRAM ABDOMEN PELVIS 08/19/2018 CT ANGIOGRAM ABDOMEN PELVIS DEXA SCAN 2007 HM DEXA SCAN 2014 HYSTERECTOMY IR INJECTION NERVE BLOCK Bilateral 08/07/2023 L3-L5 LUMBAR EPIDURAL INJECTION 05/29/2023 L4-L5 NV ARTHROSCOPY KNEE DIAGNOSTIC W/WO SYNOVIAL BX SPX Left NV INTUBATION ENDOTRACHEAL EMERGENCY PROCEDURE 08/18/2018 NV MEDICATION MANAGEMENT Aortic insufficiency RIGHT HEART CATHETERIZATION [...] Spinal stenosis at L4-L5 level - HYDROcodone-acetaminophen ([place]) 5-325 MG tablet; Take 1 tablet by mouth every 4 (four) hours if needed for severe pain for up to 10 days Follow up in about 4 weeks (around 06/05/2024) for Routine F/U. documented in this encounter [facility] 04-29-2024 Telephone encounter Note [facility] [place] requesting clarification on dispense amount for insulin. Resent with correct amount to dispense. [facility] 04-29-2024 Miscellaneous Notes [facility] [place] requesting clarification on dispense amount for insulin. Resent with correct amount to dispense. documented in this encounter [facility] 04-25-2024 Consult note Note Date/Time April 25, 2024 12:10pm [place] [address] Cardiology Consult Note Signed with Addenda Patient: Jenni Quinones MR#: [id number] : 1940 Acct:[id number] Age/Sex: 84 / F Adm Date: 4 Loc: Room: [address] [place] [address] Type: ADM IN Attending Dr: Javan Gruber [...] the hospitalist and ER nurse practitioner at [facility] after discussion last night. Patient was transferred here under my direction for further assessment and management. She was watching the [employer] baseball game, became very excited and experienced retrosternal chest discomfort that abated after arrival to the emergency room after being directed by her family togo to the ER for her discomfort. Initial ECGs revealed atrial fibrillation withnonspecific ST changes, initial troponin was negative. Patient has a history of chronic atrial fibrillation, aortic valve replacement in [place], followed by Dr. Nova. She has previous [...] be discharged to follow-up with her primary equipment analyst. [facility] Medical History (Updated 04/25/24 @ 04:15 by [...] Lymph # (Auto) 0.7 L (1.00-4.8) x10E3/uL [place] # (Auto) 0.8 (0.0-0.8) x10E3/uL Eos # [...] imaging Documented By: Ingrid Haynes DO 04/25/24 [id number] Signed By: <Electronically signed by Ingrid Haynes DO> 04/25/24 1208 [facility] Work Phone: 1(358) 996-536410-18-2024 History and physical note Author Lalo Carter [facility] April 25, 2024 4:19am Note Date/Time April 25, 2024 4 :10am [facility] [address] [place] [address] Hospitalist H&P Signed Patient: Jenni Quinones MR#: [id number] : 1940 Acct:[id number] Age/Sex: 84 / F Adm Date: 4 Loc: Room: [address] [place] [address] Type: ADM IN Attending Dr: Lalo Carter DO Copies to: MD Lalo Padilla II, ~ HPI DATE OF EXAMINATION: 04/25/24 CHIEF COMPLAINT: Chest pain with radiation to the jaw and shortness of breath and EKG change HISTORY OF PRESENT ILLNESS: This is an 84-year-old woman who presented to the [facility] emergency room. The ER over there had gotten a hold of cardiology on-call with Dr. Haynes regarding EKG changes especially in aVL with inferior depression pattern and so it was recommended that the patient be transferred here to [facility] for cardiology evaluation. The patient is currently in a senior care facility working with physical therapy and getting [...] of this lasted 20 minutes. At the [facility] emergency room a chest x-ray showed [...] Dr. Josefina Nova from the [facility], to [place]. 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 She has been told that there is something just not quite right about that aortic valve, but she cannot explain what the equipment analyst were looking at. When I asked her if she got cardiac catheterization and planning for the aortic valve replacement the patient does not recall getting this. Review of Systems Review of Systems Review of systems: 10 systems are reviewed and are negative except as mentioned elsewhere in the documentation. [facility] Medical History (Updated 04/25/24 @ 04:15 by [...] diabetes mellitus: Plan Assessment: Presentation [facility] with chest pain with radiation to [...] a fall on April 11 at a senior care facility in [place]. Plan: Hospital admission, inpatient status. N.p.o. 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 [...] of Systems Constitutional: P (more content not included)...[facility]05-31-2024 NoteRecently admitted overnight at [facility] for Acute HFrEF and palpitations Coreg was [...] function and electrolytes and she voiced understanding. [facility] II-III Pt is close to euvolemia via assessment todayUnHenry [facility]2023 Noteaortic valve replacement with a 23 mm trifecta tissue valve: 2016 Elevated doppler flows noted and severe AO stenosis- will repeat TTE a 6 months to re-evalaute. RTC with Dr Nova D/W pt about red flag symptoms to call 911 and/or office- increased SOB, Palpitations, syncope, chest pain or any concerns and she voiced understanding Continue all medications as prescribedUnHenry [facility] Hospital 12-07-2023 NoteRepeat TTE in 6 months Pt denied any worsening symptoms since DC from [facility] and diuresisUnHenry [facility] Hospital05-31-2024 NoteStable, will monitor with routine echocardiogram in 6 monthsUnHenry [facility]05-31-2024 NoteUTP CARDIOLOGY PROGRESS NOTE HPI: Jenni Quinones is a 83 y.o. female here for routine f/U and review of TTE and ED f/U Patient here for 6 mo follow up aortic and mitral valve stenosis, diastolic heart failure, and permanent afib. She had an echo last month. She presented to [facility] ED a few weeks ago for palpitations. [...] She has history of prior admissions to [facility] with AF/RVR and diastolic heart failure decompensation. She has normal coronary angiogram in 2016. Patient here for 6 mo follow up aortic and mitral valve stenosis, diastolic heart failure, and permanent afib. She had an echo last month. She presented to [facility] ED a few weeks ago for palpitations. While she was kept for observation, carvedilol was increased and spironolactone was added. These have improved she says. Denies chest pain, SOB, and LE edema. Says she is lightheaded a lot. Daughter said she's very weak. Patient states BP's at home have been within normal range. Medical Decision Making [facility] Narrative Medical decision making narrative: 83-year-old female to the emergency department with chief complaint of palpitations and shortness of breath. Hypoxic in the 80s on room air. Otherwise stable vitals. History of congestive heart failure similar episodes per patient. She is on oxygen 2 L only at night as needed. Cardec workup is initiated. Patient agrees this plan. Emergency Department [facility] 5 Patient name: JENNI QUINONES Laboratory reviewed [...] has new requirement of 2L O2 by [place]. Case discussed with hospitalist who agreed to [...] She has history of prior admissions to [facility] with AF/RVR and diastolic heart failure decompensation. [...] flows across the biop (more content not included)...[facility]05-31-2024 NotePatient here for 6 mo follow up aortic and mitral valve stenosis, diastolic heart failure, and permanent afib. She had an echo last month. She presented to [facility] ED a few weeks ago for palpitations. [...] weakness. All other systems reviewed and are negative.[facility] 12-07-2023 NoteContinue to monitor AO valve with repeat TTE in 6 months [facility]01-30-2024 History of Present illness Narrative* Carole Loyola LPN - 08/07/2023 10:57 AM EST Pt alert and oriented. Denies pain at this time. Dressings at injection site clean and dry. Discharge instructions reviewed, no questions or concerns voiced. documented in this encounterWYANDOT Work Phone: 1(353) 369-589301-29-2024 Hospital Discharge instructions* Discharge Instructions* Carole Loyola [...] vomiting - Difficulty breathing or swallowing CALL [phone] Other Instructions: - You should have a follow-up appointment scheduled already or a follow-up plan in place prior to leaving. - Call the office if you develop any problems or have any questions at: [facility] [phone] or Our 24 hour help line is also available: [phone] If you need refills,or have questions / concerns, outside of our office hours Sunday 8:00 a.m - 4:[address] [facility], please call [phone] to speak to Constance STEINER or leave a voicemail for her. *Remember to allow at least 48 business hours for medication refill requests. documented in this encounterWYANDOT Work Phone: 1(301) 852-257112-01-2022 NoteHISTORY AND PHYSICAL EXAMINATION Date:06/07/2022 HISTORY: The [...] and go forward with her elective procedure.[facility] [id number] NoteOPERATIVE NOTE OPERATION DATE: 06/08/2022 SURGEON: Dawood [...] ensuring mobility, phacoemulsification was performed in a cfgomjw-nfx-erzjrx-type fashion. After all nuclear material had been [...] up the following day for postoperative care.[facility] [id number] NoteOPERATIVE NOTE OPERATION DATE: 04/13/2022 SURGEON: Dawood [...] ensuring mobility, phacoemulsification was performed in a eiwmisn-ukg-ixcdik-type fashion. After all nuclear material had been [...] up the following day for postoperative care.[facility] [id number] NoteHISTORY AND PHYSICAL EXAMINATION Date:04/12/2022 HISTORY: The [...] and go forward with her elective procedure.[facility] [id number] Evaluation note* Encounter Date Diagnosis Assessment Notes [...] [facility] Care At Home document [employer] Other Evaluation note* Diagnosis Lumbar spondylosis- Primary Lumbosacral spondylosis without myelopathy documented in this encounter [facility] Phone: evaluation note* Diagnosis Onset Date Resolution Status Acute electrocardiogram changes acute Chest pain acute Fracture of rib of left side acute GERD (gastroesophageal reflux disease) acute Hypertension acute Type 2 diabetes mellitus acu te [facility] Work Phone: Evaluation note* Diagnosis Diabetes mellitus with peripheral vascular disease (CMS/HCC) documented in this encounter [facility]* [...] see above list Hospitalization History chf x3 [employer] Other Hospital Discharge instructions Additional Instructions snf facility to manage care: DNR CCA no intubation PT/OT to eval and treat Routine vital signs Maintain high risk falls precautions Monitor cardio assessment -- angina Care to be managed by SNF provider [facility] Work Phone: Summary Purpose Family [...] section and content) DATE CREATED AUTHOR 08/19/2021 [facility] dical Specialist DATE CREATED AUTHOR AUTHOR'S ORGANIZ ATION 12/26/2021 [facility] DATE CREATED AUTHOR AUTHOR'S ORGANIZ ATION 12/15/2022 [facility] DATE CREATED AUTHOR AUTHOR'S ORGANIZ ATION 05/18/2023 [facility] DATE CREATED AUTHOR AUTHOR'S ORGANIZ ATION 08/08/2023 [facility] DATE CREATED AUTHOR AUTHOR'S ORGANIZ ATION 05/03/2024 [facility] DATE CREATED AUTHOR AUTHOR'S ORGANIZ ATION 05/10/2024 [facility] dical Specialists EPIC DATE CREATED AUTHOR AUTHOR'S ORGANIZ ATION 06/01/2024 [facility] REASON FOR VISIT (unrecogniz ed section and content) Specialty Diagnoses / Procedures Referred By Williams t Referred To Contact Diagnoses Lumbar spondylosis Lumbar spondylosis [M47.816] Procedures NV NJX DX/THER AGT PVRT FACET JT LMBR/SAC 1 LEVEL NV NJX DX/THER AGT PVRT FACET JT LMBR/SAC 2ND LEVEL B/L LUMBAR MEDIAL BRANCH BLOCK L3 L4 L5 B/L LUMBAR MEDIAL BRANCH BLOCK L3 L4 L5 Kd Hines MD [address] [place] [address] [facility] Phone: [phone] Referral ID Status Reason Start Date Expiration Date Visits Re quested Visits Authorized [id number] 1 1 Reason Comments Follow-up [facility] stay 04/11/24-04/13/24 after fall at home with rib fractures discharged to [facility] 04/24/24-04/25/24 dx: C[place]is[place] 04/30/24 Shortness of Breath Had echo yesterday o rdered by cardiology has appt with cardiology next weekUsing 02 continuously Med Refill Hydrocodone--DM clyd e PRN [...] Care Teams (unrecognized sec tion and content) 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 Administration Teacher Relationship Specialty Start Date End Date Jasvir León MD [address] [facility] [address] [place] [address] PCP - General Internal Medicine 05/07/23 Team [...] April 25, 2024 End: April 25, 2024 Public Administration Teacher Relationship Specialty Start Date End Date Jasvir León MD [address] [facility] [address] [place] [address] PCP - General Internal Medicine 11/20/22 Jasvir León MD [address] [facility] [address] [place] [address] PCP - ACO Reach 11/30/22 Public Administration Teacher Relationship Specialty Start Date End Date Jasvir León MD [address] [facility] [address] [place] [address] PCP - General Internal Medicine 11/20/22 Jasvir León MD [address] [facility] [address] [place] [address] PCP - ACO Reach 11/30/22 Public Administration Teacher Relationship Specialty Start Date End Date Jasvir León MD [address] [facility] [address] [place] [address] PCP - General Internal Medicine 11/20/22 aJsvir León MD [address] [facility] [address] [place] [address] PCP - ACO Reach 11/30/22 FOR RECORDS [...] BE BASED ON THE PRIMARY CLINICAL RECORDS. [employer] provides no warranty or guarantee of the accuracy or completeness of information in this document.
[2024-06-02 12:20] LABS: Alanine Aminotransferase 9 U/L (14-59); Albumin Globulin Ratio 0.6; Albumin Level 3.1 g/dL (3.4-5.0); Alkaline Phosphatase 109 U/L (46-116); Anion Gap 15.4; Aspartate Amino Transferase 12 U/L (15-37); BUN Creatinine Ratio 17.1; Bilirubin Total 0.7 mg/dL (0.2-1.0); Calcium 9.7 mg/dL (8.5-10.1); Carbon Dioxide 28.9 mmol/L (21.0-32.0); Chloride 100 mmol/L (98-107); Estimated GFR (African America 29 (>=60 mL/min/1.73m^2); Estimated GFR (Non-African Ame 24 (>=60 mL/min/1.73m^2); Globulin 5.5 g/dL; Glucose 95 mg/dL (74-106); Potassium 4.3 mmol/L (3.5-5.1); Sodium 140 mmol/L (136-145); Total Protein 8.6 g/dL (6.4-8.2)
[2024-06-02 12:41] LABS: Basophils Absolute Auto 0.1 10^3/uL (0.0-0.1); Basophils Percent Auto 0.7 % (0.2-2.0); Eosinophils Absolute Auto 0.3 10^3/uL (0.0-0.7); Hematocrit 37.4 % (36.0-48.0); Hemoglobin 11.6 g/dL (12.0-16.0); Immature Granulocytes Abs Auto 0.03 10^3/uL (0.00-0.03); Immature Granulocytes Pct Auto 0.3 % (0.0-0.5); Lymphocytes Absolute Auto 0.8 10^3/uL (1.2-3.8); Lymphocytes Percent Auto 7.8 % (20.5-60.0); Mean Corpuscular Hemoglobin 30.1 pg (26.7-34.0); Mean Corpuscular Volume 97.1 fL (81.0-99.0); Mean Platelet Volume 10.4 fL (9.5-13.5); Monocytes Absolute Auto 0.9 10^3/uL (0.3-0.8); Monocytes Percent Auto 9.6 % (1.7-12.0); Neutrophils Absolute Auto 7.6 10^3/uL (1.4-6.5); Neutrophils Percent Auto 78.6 % (43.0-75.0); Platelet Count 311 10^3/uL (150-450); Red Blood Count 3.85 10^6/uL (4.20-5.40); Red Cell Distribution Width 15.5 % (11.0-15.0); White Blood Count 9.7 10^3/uL (4.0-11.0)
[2024-06-02 13:05] LABS: Digoxin 1.3 ng/mL (0.9-2.0)
== END 2024-06-02 11:42 | disposition home or self-care (01) ==
LOC: LAB 11:42
PROVIDERS: PCP Internal Medicine; Visit Provider Internal Medicine Interventional Cardiology
DX: I50.32 Chronic diastolic (congestive) heart failure (principal); I48.21 Permanent atrial fibrillation
CPT/HCPCS: 36415; 80053; 80162; 85025

== ENCOUNTER 2024-06-23 13:48 | Outpatient (OUT) | payer MEDICARE, OTHER, SELFPAY ==
[2024-06-23 14:08] LABS: Basophils Absolute Auto 0.1 10^3/uL (0.0-0.1); Basophils Percent Auto 0.6 % (0.2-2.0); Eosinophils Absolute Auto 0.2 10^3/uL (0.0-0.7); Eosinophils Percent Auto 2.2 % (0.9-7.0); Hematocrit 37.4 % (36.0-48.0); Hemoglobin 11.3 g/dL (12.0-16.0); Immature Granulocytes Abs Auto 0.03 10^3/uL (0.00-0.03); Immature Granulocytes Pct Auto 0.3 % (0.0-0.5); Lymphocytes Absolute Auto 0.8 10^3/uL (1.2-3.8); Lymphocytes Percent Auto 7.9 % (20.5-60.0); Mean Corpuscular HGB Conc 30.2 g/dL (29.9-35.2); Mean Corpuscular Hemoglobin 28.6 pg (26.7-34.0); Mean Corpuscular Volume 94.7 fL (81.0-99.0); Mean Platelet Volume 9.5 fL (9.5-13.5); Monocytes Absolute Auto 0.8 10^3/uL (0.3-0.8); Monocytes Percent Auto 8.9 % (1.7-12.0); Neutrophils Absolute Auto 7.6 10^3/uL (1.4-6.5); Neutrophils Percent Auto 80.1 % (43.0-75.0); Platelet Count 314 10^3/uL (150-450); Red Blood Count 3.95 10^6/uL (4.20-5.40); Red Cell Distribution Width 14.6 % (11.0-15.0); White Blood Count 9.5 10^3/uL (4.0-11.0)
--- NOTE | 2024-06-23 14:29 | XR_ITS ---
The [address] [address] Patient Name: KATHY VILLEGAS MRN: [id number] date: 1940 Sex: F Assigned Patient Location: LAB Current Patient Location: Accession/Order Number: [id number] Exam Date: 06/23/2024 14:15 Report Date: 06/24/2024 07:34 At the request of: JOSEFINA CHAO Procedure: XR chest 2V EXAMINATION: XR chest 2V HISTORY: Chest Trauma COMPARISON: 04/24/2024 TECHNIQUE: PA and lateral FINDINGS: LUNGS: Moderate focal infiltrate identified in the left lower lobe VASCULATURE: No increased pulmonary vasculature. PLEURA: No pneumothorax, effusion, or pleural thickening. CARDIAC: No cardiomegaly or cardiac silhouette abnormality. MEDIASTINUM: No visible mass or adenopathy. Median sternotomy closure devices BONES: Fracture of the right posterior sixth rib and left posterior seventh and eighth ribs OTHER: Negative. XR/XR chest 2V IMPRESSION: Moderate left lower lobe opacity, indeterminate. Consider CT follow-up New right posterior sixth rib fracture with stable left rib fractures Electronically authenticated by: MEENA HAWKINS Date: 06/24/2024 07:34
[2024-06-23 14:36] LABS: Anion Gap 13.1; BUN Creatinine Ratio 20.5; Calcium 9.5 mg/dL (8.5-10.1); Carbon Dioxide 32.6 mmol/L (21.0-32.0); Chloride 96 mmol/L (98-107); Estimated GFR (African America 28 (>=60 mL/min/1.73m^2); Estimated GFR (Non-African Ame 23 (>=60 mL/min/1.73m^2); Glucose 155 mg/dL (74-106); Potassium 4.7 mmol/L (3.5-5.1); Sodium 137 mmol/L (136-145)
[2024-06-23 14:46] LABS: Digoxin 1.7 ng/mL (0.9-2.0)
== END 2024-06-23 13:49 | disposition home or self-care (01) ==
LOC: LAB 13:50
PROVIDERS: PCP Internal Medicine; Visit Provider Internal Medicine Interventional Cardiology
DX: S29.9XXA Unspecified injury of thorax, initial encounter (principal); Z95.2 Presence of prosthetic heart valve; I50.32 Chronic diastolic (congestive) heart failure; I48.21 Permanent atrial fibrillation; S22.43XA Multiple fractures of ribs, bilateral, initial encounter for closed fracture
CPT/HCPCS: 36415; 71046; 80048; 80162; 85025

== ENCOUNTER 2024-07-22 12:51 | Outpatient (OUT) | payer MEDICARE, OTHER, SELFPAY ==
[2024-07-22 13:21] LABS: Anion Gap 8.7; BUN Creatinine Ratio 15.9; Calcium 9.1 mg/dL (8.5-10.1); Carbon Dioxide 32.4 mmol/L (21.0-32.0); Chloride 102 mmol/L (98-107); Estimated GFR (African America 36 (>=60 mL/min/1.73m^2); Estimated GFR (Non-African Ame 30 (>=60 mL/min/1.73m^2); Glucose 190 mg/dL (74-106); Potassium 4.1 mmol/L (3.5-5.1); Sodium 139 mmol/L (136-145)
[2024-07-22 13:29] LABS: Digoxin 1.2 ng/mL (0.9-2.0)
== END 2024-07-22 12:52 | disposition home or self-care (01) ==
LOC: LAB 12:54
PROVIDERS: PCP Internal Medicine; Visit Provider Internal Medicine Interventional Cardiology
DX: I48.0 Paroxysmal atrial fibrillation (principal)
CPT/HCPCS: 36415; 80048; 80162

== ENCOUNTER 2024-08-12 13:27 | Outpatient (RCR) | payer MEDICARE, OTHER, SELFPAY ==
--- NOTE | 2024-09-09 12:29 | CR1_ITS ---
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
--- NOTE | 2024-10-08 09:44 | CR1_ITS ---
[facility] Test Date: 2024-10-08 Pat Name: KATHY VILLEGAS Department: Room: - Gender: Female Agent: : 1940 Requested By: JOSEFINA CHAO M.D. Order Number: [id number] Reading MD: MIKE HUGO Interpretive Statements Session Date: Electronically Signed On 10-19-2024 19:58:49 EDT by MIKE HUGO
== END 2024-12-16 14:28 | disposition home or self-care (01) ==
LOC: CR 13:27
PROVIDERS: PCP Internal Medicine; Visit Provider Internal Medicine Interventional Cardiology
DX: I35.9 Nonrheumatic aortic valve disorder, unspecified (principal); Z95.2 Presence of prosthetic heart valve

== ENCOUNTER 2024-08-14 21:33 | Inpatient (IN) | payer MEDICARE, OTHER, SELFPAY ==
[2024-08-14] VITALS (20 sets, daily range): BP systolic 93–141; BP diastolic 45–88; PULSE 112–151; TEMP 36.7; O2SAT 88–99; BMI 24.9
--- OUTSIDE RECORDS SUMMARY | 2024-08-14 21:40 | XMS_ITS | CCD ---
Author Organization [facility] Care Team Providers Care Lap Maker Name Role Phone GRETTA OMALLEY Admitting Unavailable GRETTA OMALLEY Attending Unavailable JASVIR LEÓN Referring Unavailable JASVIR LEÓN Primary Care Unavailable Mariam Ward Unavailable DR JASVIR LEÓN Primary Care Unavailable JOSEFINA NOVA Consulting Unavailable JOSEFINA NOVA Attending Unavailable JOSEFINA NVOA Admitting Unavailable KHARI, DR ISRAEL Primary Care [...] HOY ., DR MEJIA Primary Care Unavailable HOCarlos ., DR MEJIA Consulting Unavailable PAY ., [...] Unavailable HOY ., DR MEJIA Admitting Unavailable HOCarlos ., DR MEJIA Consulting Unavailable HAY ., [...] Primary Care Provider Jasvir León MD Unavailable [phone] Isaura Childs Consulting Unavailable Javan Gruber Attending [...] LEÓN Referring Unavailable JASVIR LEÓN Attending Unavailable Latrice MALIK, Leora Unavailable DEON, HOMA Referring Unavailable CHAVARRIA, HOMA Referring Unavailable CHAVARRIA, HOMA Referring Unavailable YRISFARZANEH Attending Unavailable MOUKARBEL, JOSEFINA Attending Unavailable DYAN, BRENT Attending Unavailable MOUKARBEL, JOSEFINA Referring Unavailable MOUKARBEL, JOSEFINA Attending Unavailable MOUKARBEL, JOSEFINA Admitting Unavailable MOUKARBEL, JOSEFINA Referring Unavailable MOUKARBEL, JOSEFINA Attending Unavailable MOUKARBEL, JOSEFINA Admitting Unavailable MOUKARBEL, JOSEFINA Attending Unavailable DERISOCRAIG Attending Unavailable CHAVARRIA, HOMA Referring Unavailable MOUKARBEL, JOSEFINA Referring Unavailable MOUKARBEL, JOSEFINA Referring Unavailable MOUKARBEL, JOSEFINA Attending Unavailable MOUKARBEL, JOSEFINA Attending Unavailable CHAVARRIA, HOMA Referring Unavailable MOUKARBEL, JOSEFINA Referring Unavailable CHAVARRIA, HOMA Referring Unavailable Allergies Allergy Classification Reported Allergen(s) Allergy Type Date of Onset Reaction(s) Facility (5 sources) Codeine; Translations: [CODEINE] Drug Allergy 4 abdominal pain [facility] Repository (5 sources) Penicillins; Translations: [PENICILLINS] Drug allergy (disorder) 2 rash [facility] Repository (1 source) penicillian Propensity to adverse reactions rash [employer] Other (1 source) codiene Propensity to adverse reactions abdominal pain [employer] Other (2 sources) sacubitril / valsartan Drug Allergy 2 [facility] Repository (12 sources) Codeine Drug Allergy 3 Other (See Comments) [facility] (1 source) Penicillins Propensity to adverse reactions to drug 3 Sita MICHAELS Work Phone: (13 sources) sacubitril / valsartan; Translations: [SACUBITRIL-ARJUN SARTAN] Drug Allergy 2 Sita MICHAELS (11 sources) Penicillin G Drug Allergy 3 Rash, Other [facility] (1 source) Codeine Drug Allergy 4 [facility] Repository (1 source) Penicillins Drug allergy (disorder) 4 [facility] Repository Medications Current Medications Medication Drug Class(es) Dates Sig (Normalized) Sig (Original) acetaminophen 325 mg oral tablet (12 sources) take 1 tablet by mouth every [...] / HYDROcodone bitartrate 5 mg oral tablet (4 sources) Opioid Agonist Start: 06-27-2024 End: 07-07-2024 take 1 tablet by mouth every four hours for pain HYDROcodone-acetaminophen ([place]) 5-325 MG tablet Indications: Spinal stenosis at L4-L5 level Take 1 tablet by mouth every 4 (four) hours if needed for severe pain for up to 10 days 60 tablet 06/27/2024 07/07/2024 Active Start: 05-08-2024 End: 05-18-2024 take 1 tablet by mouth every four hours for pain HYDROcodone-acetaminophen ([place]) 5-325 MG tablet Indications: Spinal stenosis at [...] 2024 12:00am ALPRAZolam 0.25 mg oral tablet (15 sources) Benzodiazepine Start: 02-13-2024 End: 12-20-2024 take 1 tablet by mouth every six hours as needed for anxiety and anxiety and anxiety ALPRAZolam (Xanax) 0.25 MG tablet Indications: Anxiety Take 1 tablet (0.25 mg) by mouth every 6 (six) hours if needed for anxiety 60 tablet 06/23/2024 12/20/2024 Active take 1 tablet by codi th every six hours as needed for anxiety ALPRAZolam (XANAX) 0.25 MG tablet Take 1 tablet by mouth every 6 hours as needed for Anxiety. 0 Active take 1 tablet by mouth every eig ht hours Xanax 0.25 MG 1 tablet Orally Three times a day Active amLODIPine 5 mg oral tablet (12 sources) Dihydropyridine Calcium Channel Soumya Start: 02-09-2023 [...] 0 Active atorvastatin 20 mg oral tablet (13 sources) HMG-CoA Reductase Inhibitor Start: 06-25-2024 take 1 tablet by mouth at bedtime atorvastatin (Lipitor) 20 MG tablet Indications: Stage 3a chronic kidney disease (HCC) (CMS/HCC) TAKE 1 TABLET BY MOUTH AT BEDTIME 130 tablet 06/25/2024 Active Start: 05-24-2023 take 1 tablet by codi th at bedtime atorvastatin (Lipitor) 20 MG tablet Indications: Stage 3a chronic kidney disease (HCC) (CMS/HCC) Take 1 tablet (20 mg) by mouth at bedtime. 100 tablet 3 05/24/2023 Active 12 hr buPROPion hydrochloride 150 mg extended release oral tablet (15 sources) Aminoketone Start: 10-16-2023 take 150 mg by mouth twice daily Bupropion Hcl Active 150 MG PO Twice daily October 16, 2023 12:00am Start: 12-27-2022 End: 06-23-2024 take 1 tablet by mouth every twelve hours in the morning buPROPion SR (Wellbutrin SR) 150 MG 12 hr tablet Indications: Depression with anxiety Take 1 tablet (150 mg) by mouth in the morning and 1 tablet (150 mg) before bedtime. 200 tablet 3 06/23/2024 Active take 1 tablet by codi th twice daily buPROPion (WELLBUTRIN SR) 150 MG extended release tablet Take 1 tablet by mouth 2 times daily 0 Active CALCIUM CARB-CHOLECALCIFEROL PO (1 source) take 600 mg by mouth once daily CALCIUM CARB-CHOLECALCIFEROL PO Take 600 mg by mouth daily 600-200 mg-unit 0 Active calcium carbonate 1500 mg / cholecalciferol 200 unt oral tablet (11 sources) Vitamin D Calcium Carb-Cholecalciferol 600-200 MG-UNIT tablet Take by mouth 1 (one) time each day at the same time. Active carvedilol 12.5 mg oral tablet (14 sources) alpha-Adrener gic Soumya, beta-Adrenerg ic Soumya [...] 2 times daily (with meals) 0 Active clopidogrel 75 mg oral tablet (3 sources) P2Y12 Platelet Inhibitor Start: 06-11-2024 End: 07-11-2024 take 1 tablet by mouth in the morning clopidogrel (Plavix) 75 MG tablet Take 75 mg by mouth in the morning. 06/11/2024 07/11/2024 Active clotrimazole 10 mg oral lozenge (11 sources) Azole Antifungal Start: 08-03-2021 take 10 mg by mouth every eight hours clotrimazole (Mycelex) 10 MG erinn Take 10 mg by mouth every 8 (eight) hours. 08/03/2021 Active colchicine 0.6 mg oral tablet (11 sources) Start: 11-02-2023 End: 11-01-2024 take 1 tablet by mouth once daily colchicine 0.6 MG tablet Indications: Gout, unspecified cause, unspecified chronicity, unspecified site Take 1 tablet (0.6 mg) by mouth Daily 30 tablet 1 11/02/2023 11/01/2024 Active Continuous Glucose Assistant Associate Professor (FreeStyle Marguerite 2 [place]) device (1 source) Continuous Gluco se Assistant Associate Professor (FreeStyle Marguerite 2 [place]) device 1 Device Active Continuous Glucose Sensor (FreeStyle Marguerite 2 Plus Sensor) misc (1 source) Continuous Gluco se Sensor (FreeStyle Marguerite 2 Plus Sensor) misc 1 Application continuously Active digoxin 0.125 mg oral tablet (13 sources) Cardiac Glycoside Start: 06-26-2024 take 1 tablet by mouth every other day digoxin (Lanoxin) 125 MCG tablet Indications: Acute on chronic systolic congestive heart failure (CMS/HCC) Take 1 tablet (125 mcg) by mouth every other day 06/26/2024 Active Start: 10-16-2023 Digoxin Active 0.125 MG PO .COMPLEX October 16, 2023 [...] day(s) Active empagliflozin 10 mg oral tablet (12 sources) Sodium-Glucose Cotransporter 2 Inhibitor Start: 12-26-19 End: 12-26-19 25 take 1 tablet by mouth once daily empagliflozin (Jardiance) 10 MG Indications: Type 2 diabetes mellitus with stage 3b chronic kidney disease, with long-term current use of insulin (HCC) (CMS/HCC) Take 1 tablet (10 mg) by mouth Daily 30 tablet 11 12/26/2023 12/25/2024 Active escitalopram 10 mg oral tablet (14 sources) Serotonin Reuptake Inhibitor Start: 10-16-19 24 [...] day(s) Active gabapentin 100 mg oral capsule (13 sources) Anti-epileptic Agent Start: 4 take 1 [...] lispro protamine, human 75 unt/ml pen injector (13 sources) Insulin Analog Start: 04-29-2024 End: 05-28-2024 inject 10 [IU] by subcutaneous injection in the morning insulin lispro protamine-insulin lispro (HumaLOG Mix 75-25) (75-25) 100 UNIT/ML injection Indications: Diabetes mellitus with peripheral vascular disease (CMS/HCC) Inject 10 Units under the skin in the morning and 10 Units in the evening. Inject with meals. 6 mL 11 05/28/2024 Active Start: 04-29-2024 End: 04-29-2024 inject 10 [IU] by subcutaneous injection twice daily at mealtime insulin lispro protamine-insulin lispro (HumaLOG Mix 75-25) (75-25) 100 UNIT/ML injection Indications: Diabetes mellitus with peripheral vascular disease (CMS/HCC) INJECT TEN UNITS SUBCUTANEOUSLY (UNDER THE SKIN) TWICE DAILY (IN THE MORNING and IN THE EVENING) WITH MEALS 90 mL 11 04/29/2024 04/29/2024 Discontinued (Reorder) Start: 03-15-2023 inject 10 [IU] by pelayo bcutaneous injection in the morning insulin lispro protamine-insulin lispro (HumaLOG Mix 75-25) (75-25) 100 UNIT/ML injection Indications: Diabetes mellitus with peripheral vascular disease (CMS/HCC) Inject 10 Units under the skin in the morning and 10 Units in the evening. Inject with meals. 21 mL 5 03/15/2023 Active insulin lispro p rotamine & lispro [...] 12:00am ammonium lactate 120 mg/ml topical lotion (11 sources) Start: 09-01-2021 ammonium lactate (Lac-Hydrin) 12 % lotion Apply 1 application topically if needed. 09/01/2021 Active levothyroxine sodium 0.05 mg oral tablet (12 sources) l-Thyroxine Start: 11-15-2022 take 1 tablet [...] 2024 12:00am lisinopril 20 mg oral tablet (12 sources) Angiotensin Converting Enzyme Inhibitor Start: 02-09-2023 take 1 tablet by mouth in the morning lisinopril 20 MG tablet Take 20 mg by mouth in the morning. 02/09/2023 Active Nirmatrelvir&Ritonav ir 150/100 (Paxlovid, 150/100,) 10 x 150 MG & 10 x 100MG tablet therapy pack (1 source) Start: 03-17-2024 End: 03-22-2024 take 2 tablets by mouth in the morning Nirmatrelvir&Ritonav ir 150/100 (Paxlovid, 150/100,) 10 x 150 MG & 10 x 100MG tablet therapy pack Indications: COVID Take 2 tablets by mouth in the morning and 2 tablets before bedtime. Do all this for 5 days. Take as package directs. 1 each 03/17/2024 03/22/2024 Active omeprazole 40 mg delayed release oral capsule (13 sources) Proton Pump Inhibitor Start: 10-16-2023 take [...] day(s) Active rOPINIRole 0.25 mg oral tablet (13 sources) Nonergot Dopamine Agonist Start: take 1 [...] 0 Active spironolactone 25 mg oral tablet (12 sources) Aldosterone Antagonist Start: 06-26-2024 End: 06-26-2025 take 0.5 tablet by mouth in the morning spironolactone (Aldactone) 25 MG tablet Indications: Chronic right-sided heart failure (HCC) (CMS/HCC) Take 0.5 tablets (12.5 mg) by mouth in the morning. 90 tablet 2 06/26/2024 06/26/2025 Active Start: 01-03-2024 End: 01-02-2025 take 1 tablet by mouth in the morning spironolactone (Aldactone) 25 MG tablet Indications: Chronic right-sided heart failure (HCC) (CMS/HCC) Take 1 tablet (25 mg) by mouth in the morning. 90 tablet 2 01/03/2024 01/02/2025 Active tiZANidine 4 mg oral tablet (11 sources) Central alpha-2 Adrenergic Agonist Start: 04-11-2023 [...] 0 Active torsemide 20 mg oral tablet (13 sources) Loop Diuretic Start: 07-17-2024 take 2.5 tablets by mouth once daily torsemide (Demadex) 20 MG tablet Indications: Acute combined systolic and diastolic heart failure (CMS/HCC) Take 2.5 tablets (50 mg) by mouth Daily 75 tablet 11 07/17/2024 Active Start: 10-16-2023 take 1 tablet by codi th once daily torsemide (Demadex) 20 MG tablet Indications: Acute combined systolic and diastolic heart failure (CMS/HCC) take 1 tablet by mouth once daily 100 tablet 3 01/17/2024 Active take 1 tablet by codi th once daily torsemide (DEMADEX) 20 MG tablet [...] substances status] Onset: 11-21-2022 Episodic Anxiety disorders (20 sources) Mixed anxiety and depressive disorder; Translations: [Other specified anxiety disorders] Onset: 11-21-2022 11-21-2022 Chronic Asthma (12 sources) Unspecified asthma, uncomplicated; Translations: [Asthma] Onset: [...] Translations: [BRADYCARDIA UNSPECIFIED] Onset: 10-12-2022 Episodic Cataract (20 sources) Presence of intraocular lens; Translations: [Age-related nuclear cataract, right eye] Onset: 04-13-2022 Chronic Chronic kidney disease (20 sources) Chronic kidney disease stage 3B ; Translations: [Stage 3b chronic kidney disease (HCC)] Onset: 11-21-2022 Resolved: 08-02-2023 11-21-2022 Chronic Chronic kidney disease (3 sources) Chronic kidney disease; Translations: [CHRONIC KIDNEY DISEASE STAGE 3B] Onset: 06-07-2022 Chronic obstructive pulmonary disease and bronchiectasis (11 sources) Chronic obstructive lung disease; Translations: [Chronic [...] 04-19-2022 04-25-2024 Chronic Disorders of lipid metabolism (12 sources) Pure hypercholesterolemia , unspecified; Translations: [Hyperlipidemia] Onset: 11-21-2022 11-21-2022 Chronic Diverticulosis and diverticulitis (11 sources) Diverticulosis of colon; Translations: [Diverticulosis of large intestine without perforation or abscess without bleeding] Onset: 11-21-2022 11-21-2022 Chronic Esophageal disorders (15 sources) Gastro-esophageal reflux disease without esophagitis; Translations: [Gastroesophageal reflux disease] Onset: 11-21-2022 04-25-2024 Chronic Essential hypertension (15 sources) Essential (primary) hypertension; Translations: [Hypertensive disorder] Onset: 04-19-2022 04-25-2024 Chronic Fluid and electrolyte disorders (2 sources) Hyperkalemia; Translations: [Dehydration] Onset: 05-08-2022 Episodic Genitourinary symptoms and ill-defined conditions (11 sources) Urinary incontinence; Translations: [Unspecified urinary incontinence] [...] kidney disease] Onset: 02-14-2022 Chronic Menopausal disorders (11 sources) Primary ovarian failure; Translations: [Other primary [...] Onset: 11-21-2022 11-21-2022 Chronic Other acquired deformities (11 sources) Contracture of joint of right ankle; Translations: [Contracture, right ankle] Onset: 11-21-2022 11-21-2022 Chronic Other aftercare (1 source) USP (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 of insulin; Translations: [SHELTER CURRENT USE OF INSULIN] Onset: 11-21-2022 Episodic Other aftercare (1 source) USP (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 of aspirin; Translations: [SHELTER CURRENT USE OF ASPIRIN] Onset: 11-21-2022 Episodic Other aftercare (1 source) Other fpc (current) drug therapy; Translations: [OTH BUSINESS APPLICATIONS SPECIALIST CURRENT DRUG THERAPY] Onset: 11-21-2022 Episodic Other and ill-defined heart disease (11 sources) Diastolic dysfunction; Translations: [Other ill-defined heart [...] Other hereditary and degenerative nervous system conditions (11 sources) Restless legs; Translations: [Restless legs syndrome] Onset: 11-21-2022 11-21-2022 Chronic Other injuries and conditions due to external causes (2 sources) Unspecified injury of thorax, initial encounter; Translations: [Unspecified injury of thorax, initial encounter] Onset: 06-23-2024 Episodic Other lower respiratory disease (1 source) [...] Onset: 05-15-2024 Episodic Other nervous system disorders (11 sources) Difficulty walking; Translations: [Difficulty in walking, not elsewhere classified] Onset: 11-21-2022 11-21-2022 Chronic Other nutritional; endocrine; and metabolic disorders (11 sources) Body mass index 30+ - obesity; Translations: [Obesity, unspecified] Onset: 11-21-2022 11-21-2022 Chronic Other upper respiratory disease (11 sources) Allergic rhinitis due to pollen; Translations: [Allergic rhinitis due to pollen] Onset: 11-21-2022 11-21-2022 Chronic Other upper respiratory infections (1 source) Chronic frontal sinusitis; Translations: [Sinusitis chronic, frontal] Chronic Pathological fracture (3 sources) Pathological fracture of vertebra due to osteoporosis; Translations: [Age-related osteoporosis with current pathological fracture, vertebra(e), initial encounter for fracture] Onset: 05-09-2023 05-09-2023 Episodic Peripheral and visceral atherosclerosis (11 sources) Peripheral vascular disease; Translations: [Peripheral vascular disease, unspecified] Onset: 11-21-2022 11-21-2022 Chronic Poisoning by other medications and drugs (1 source) Poisoning by cardiac-stimulant glycosides and drugs of similar action, accidental (unintentional), initial encounter; Translations: [PSN CARD GLYCOS RX SIM ACT ACC INIT] Onset: 10-12-2022 Episodic Pulmonary heart disease (13 sources) Pulmonary hypertension; Translations: [Pulmonary hypertension, unspecified] Onset: 10-30-2022 04-10-2023 Chronic Residual codes; unclassified (11 sources) Obstructive sleep apnea syndrome; Translations: [Obstructive [...] TRACT] Onset: 11-21-2022 Episodic Residual codes; unclassified (3 sources) Other specified postprocedural states; Translations: [OTH SPECIFIED [...] radiculopathy, lumbar region] Onset: 08-07-2023 08-07-2023 Chronic Thyroid disorders (20 sources) Hypothyroidism, unspecified; Translations: [...] Da te Episodic/Chronic Deficiency and other anemia (11 sources) Anemia; Translations: [Anemia, unspecified] Onset: 3 04-10-2023 Episodic Immunizations and screening for infectious disease (1 source) Contact with and (suspected) exposure to other viral communicable diseases Onset: 1 Resolved: 1 Episodic Intestinal obstruction without hernia (11 sources) Stenosis of colon; Translations: [Other intestinal obstruction unspecified as to partial versus complete obstruction] Onset: 3 11-21-2022 Episodic Nausea and vomiting (1 source) Nausea with vomiting, unspecified; Translations: [NAUSEA WITH VOMITING UNSPECIFIED] Onset: 2 Episodic Open wounds of extremities (1 source) Open wound of finger without complication; Translations: [Thumb laceration] Episodic Other aftercare (11 sources) Long-term current use of anticoagulant; Translations: [USP (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 of anticoagulants] Onset: 8 04-10-2023 Episodic Other bone disease and musculoskeletal deformities (11 sources) Osteopenia; Translations: [Other specified disorders of bone density and structure, multiple sites] Onset: 3 11-21-2022 Episodic Other connective tissue disease (4 sources) Pain in left foot; Translations: [PAIN IN LEFT FOOT] Onset: 2 Episodic Other connective tissue disease (11 sources) Muscle weakness; Translations: [Muscle weakness (generalized)] Onset: 3 11-21-2022 Episodic Other eye disorders (11 sources) Dry eyes; Translations: [Dry eye syndrome of bilateral lacrimal glands] Onset: 4 07-30-2023 Episodic Other fractures (11 sources) Fracture of twelfth thoracic vertebra; Translations: [Wedge compression fracture of T11-T12 vertebra, initial encounter for closed fracture] Onset: 3 03-15-2023 Episodic Other gastrointestinal disorders (1 source) Diarrhea, unspecified; Translations: [DIARRHEA UNSPECIFIED] Onset: 2 Episodic Other gastrointestinal disorders (11 sources) Drug-induced constipation; Translations: [Drug induced constipation] Onset: 3 11-21-2022 Episodic Other lower respiratory disease (1 source) Cough; Translations: [Cough] Episodic Other lower respiratory disease (12 sources) Dyspnea; Translations: [Shortness of breath] Onset: 6 04-10-2023 Episodic Other nervous system disorders (11 sources) Unsteady when standing; Translations: [Unsteadiness on feet] Onset: 3 11-21-2022 Episodic Other nervous system disorders (11 sources) Abnormal gait; Translations: [Unspecified abnormalities of gait and mobility] Onset: 2 04-10-2023 Episodic Other nutritional; endocrine; and metabolic disorders (1 source) Abnormal weight loss; Translations: [ABNORMAL WEIGHT LOSS] Onset: 2 Episodic Other nutritional; endocrine; and metabolic disorders (11 sources) History of iron deficiency; Translations: [Personal history of other endocrine, nutritional and metabolic disease] Onset: 7 04-10-2023 Episodic Other screening for suspected conditions (not mental disorders or infectious disease) (14 sources) Electrocardiogram abnormal; Translations: [Abnormal electrocardiogram [ECG] [EKG]] Onset: 8 04-25-2024 Episodic Other upper respiratory infections (1 source) Acute upper respiratory infection, unspecified Onset: 1 Resolved: 1 Episodic Pneumonia (except that caused by tuberculosis or sexually transmitted disease) (3 sources) Pneumonia, unspecified organism; Translations: [PNEUMONIA UNSPECIFIED ORGANISM] Onset: 2 Episodic Spondylosis; intervertebral disc disorders; other back problems (16 sources) Lumbar radiculitis; Translations: [Radiculopathy, lumbar region] Onset: 3 05-29-2023 Episodic Viral infection (12 sources) COVID-19; Translations: [Pneumonia due to other virus not elsewhere classified] Onset: 2 04-10-2023 Episodic Results Test Name Value Interpretation Reference Range Facility Follow-Upon 07-25-2024 Follow-Up [id number] Jenni Quinones 1940 F Date Provider Department Center 07/25/2024 JOSEFINA STEIN Family History Problem Relation Age of Onset Diabetes Father Heart failure Father Other Other Family Status - Relation Status Age at Father Other Level of Service:36725 [place] OFFICE/OUTPATIENT ESTABLISHED MOD MDM 30 MIN Normal [facility] ALL BASIC METABOLIC PANELon 07-22-2024 Anion gap [Moles/Vol] 8.7 mmol/L [facility] Calcium [Mass/Vol] 9.1 mg/dL 8.5 - 10. 1 mg/dL [facility] Chloride [Moles/Vol] 102 mmol/L 98 - 10 7 mmol/L [facility] CO2 [Moles/Vol] 32.4 mmol/L High 21.0 - 32.0 mmol/L [facility] Creatinine [Mass/Vol] 1.64 mg/dL High 0.55 - 1.02 mg/dL [facility] GFR/1.73 sq M.predicted CKD-EPI (S/P/Bld) [Vol rate/Area] 36 Low >=60 mL/min/1.73 m 2 [facility] Glucose [Mass/Vol] 190 mg/dL High 74 - 106 mg/dL [facility] Interpretation and review of laboratory results Abnormal [facility] Potassium [Moles/Vol] 4.1 mmol/L 3.5 - 5.1 mmol/L [facility] Sodium [Moles/Vol] 139 mmol/L 136 - 145 mmol/L [facility] TBH EGFR-NON AF GUAMANIAN 30 Low >=60 mL/min/1.73 m 2 [facility] Urea nitrogen [Mass/Vol] 26 mg/dL High 7.0 - 18.0 mg/dL [facility] Urea nitrogen/Creatinine [Mass ratio] 15.9 mg/mg [facility] 36on 06-30-2024 36 Regarding CXR result from 06/23/2024: MD Mariaa Fernandes MA There is a rib fracture and possible lung infiltrates. Please ask that Dr León follows up on this. Spoke with patient and informed her I'd be faxed over the CXR to PCP. She will keep her apt with Dr. Nova on 07/25/2024. Normal [facility] 36on 06-25-2024 36 Regarding lab result s from 06/23/2024: MD Mariaa Fernandes MA Please have her change digoxin to every other day and spironolactone to half tablet daily. Obtain a follow-up BMP and digoxin level in 1 month. Patient informed. Lab orders mailed to her home. Awaiting CXR results. Normal [facility] ALL CBC WITH AUTO DIFFon BASOPHILS ABSOLUTE AUTO 0.1 [facility] Basophils/100 WBC (Bld) 0.6 % 0.2 - 2.0 % [facility] Eosinophils/100 WBC (Bld) 2.2 % 0.9 - 7.0 % [facility] Erythrocyte distribution width (RBC) [Ratio] 14.6 % 11.0 - 15.0 % [facility] Hematocrit (Bld) [Volume fraction] 37.4 % 36.0 - 48.0 % [facility] Hemoglobin (Bld) [Mass/Vol] 11.3 g/dL Low 12.0 - 16.0 g/dL [facility] IMMATURE GRANULOCYTES ABS AUTO 0.03 [facility] Immature granulocytes/100 WBC (Bld) 0.3 % 0.0 - 0.5 % [facility] Interpretation and review of laboratory results Abnormal [facility] LYMPHOCYTES ABSOLUTE AUTO 0.8 Low [facility] Lymphocytes/100 WBC (Bld) 7.9 % Low 20.5 - 60.0 % [facility] MCH (RBC) [Entitic mass] 28.6 pg 26.7 - 34.0 pg [facility] MCHC (RBC) [Mass/Vol] 30.2 g/dL 29.9 - 35.2 g/dL [facility] MCV (RBC) [Entitic vol] 94.7 fL 81.0 - 99.0 fL [facility] MONOCYTES ABSOLUTE AUTO 0.8 [facility] Monocytes/100 WBC (Bld) 8.9 % 1.7 - 12.0 % [facility] NEUTROPHILS ABSOLUTE AUTO 7.6 High [facility] Neutrophils/100 WBC (Bld) 80.1 % High 43.0 - 75.0 % [facility] Platelet mean volume (Bld) [Entitic vol] 9.5 fL 9.5 - 13.5 fL [facility] TBH EO # 0.2 [facility] PLT 314 [facility] TB RBC 3.95 Low [facility] TB WBC 9.5 [facility] Office Visiton 06-23-2024 Follow-up visit [id number] Jenni Quinones 1940 F Date Provider Department Center 06/23/2024 JOSEFINA STEIN SYMONE Veliz [facility] Family History Problem Relation Age of Onset Diabetes Father Heart failure Father Other Other Family Status - Relation Status Age at Father Other Level of Service:11076 [place] OFFICE/OUTPATIENT ESTABLISHED MOD MDM 30 MIN Normal [facility] 30on 06-11-2024 30 Daily Case Managemen t Update Multidisciplinary rounds have been completed. Barriers to Discharge: 06/11- POD 1 Underwent Successful [id number] transcatheter aortic valve replacement. 3 L NC, small hematoma on chest- stable. Echocardiogram reviewed showing trivial insufficiency. Valve is functioning well. Discharge now in/ appt scheduled. Diet: Dietary Orders (From admission, onward) Start Ordered 06/10/24 8382 Special Kitchen Request Once Comments: Hot roast beef sandwich with mashed potatoes and gravy. Iced tea 06/10/24 1759 06/10/24 1658 Regular Diet Heart Healthy/HTN, CABG,Stroke, (2gNA, low fat, low cholesterol) Diet effective now Question Answer Comment Room Service? Yes Fat restriction: Heart Healthy/HTN, CABG,Stroke, (2gNA, low fat, low cholesterol) 06/10/24 1657 Physician Expected Discharge Date: 06/11/2024 Discharge Delays: PT Six Click Score: 15 OT Six Click Score: PT Recommendations: OT Recommendations: New Consults: Normal [facility] BASIC METABOLIC PANELon 12-0 Anion gap [Moles/Vol] 12 mmol/L Normal 7-[address] [facility] Comment on above: Performed By: #### L [id number] #### [facility] ([facility]) [address] [place] [address] Calcium [Mass/Vol] 8.5 mg/dL Low 8.6-10.3 [facility] Comment on above: Performed By: #### L [id number] #### [facility] ([facility]) [address] [place] [address] Chloride [Moles/Vol] 104 mmol/L Normal 98-107 [facility] Comment on above: Performed By: #### L [id number] #### [facility] ([facility]) [address] [place] [address] CO2 [Moles/Vol] 24 mmol/L Normal 21-31 [facility] Comment on above: Performed By: #### L [id number] #### [facility] ([facility]) [address] [place] [address] Creatinine [Mass/Vol] 1.68 mg/dL High 0.60-1.[address] [facility] Comment on above: Performed By: #### L [id number] #### [facility] ([facility]) [address] [place] [address] GLOMERULAR FILTRATION RATE ML/MIN/1.73 SQ M.PREDICTED 29.6 mL/min/1.73m*2 Low >60.0 [place] Comment on above: Result Comment: [facility]???s estimated glomerular filtration rate (eGFR) will no longer include consideration of race in its calculation. The National Kidney Foundation???s eGFR Task Force developed new recommendations for the estimation of the glomerular filtration rate in the [place] They recommend immediate implementation of the new equation refit without the race variable in all laboratories because the calculation does not include race. In addition to not including race in the calculation and reporting, it included diversity in its development, and has acceptable performance characteristics and potential consequences that do not disproportionately affect any one group of individuals. Performed By: #### L [id number] #### [facility] ([facility]) [address] [place] [address] Glucose [Mass/Vol] 119 mg/dL High 70-100 [facility] Comment on above: Performed By: #### L [id number] #### [facility] ([facility]) [address] [place] [address] Potassium [Moles/Vol] 3.7 mmol/L Normal 3.5-5.1 [facility] Comment on above: Performed By: #### L [id number] #### [facility] ([facility]) [address] [place] [address] Sodium [Moles/Vol] 136 mmol/L Normal 136-145 [facility] Comment on above: Performed By: #### L [id number] #### [facility] ([facility]) [address] [place] [address] Urea nitrogen [Mass/Vol] 38 mg/dL High 7-25 [facility] Comment on above: Performed By: #### L [id number] #### [facility] ([facility]) [address] [place] [address] UREA NITROGEN/CREATININE (MASS RATIO) IN SER/PLAS 22.6 Normal [facility] Comment on above: Performed By: #### L [id number] #### [facility] ([facility]) [address] [place] [address] CBCon 06-11-2024 Erythrocyte distribution width (RBC) [Ratio] 14.9 % Normal 11.5-15.0 [facility] Comment on above: Performed By: #### L [id number] #### [facility] ([facility]) [address] [place] [address] ERYTHROCYTE MEAN CORPUSCULAR HEMOGLOBIN CONCENTRATION (G/DL) BY AUTOMATED 30.2 g/dL Low 32.0-35.0 [facility] Comment on above: Performed By: #### L [id number] #### [facility] ([facility]) [address] [place] [place] [address] Hematocrit (Bld) [Volume fraction] 30.8 % Low 36.0-48.0 [facility] Comment on above: Performed By: #### L [id number] #### [facility] ([facility]) [address] [place] [address] Hemoglobin (Bld) [Mass/Vol] 9.3 g/dL Low 12.0-15.0 [facility] Comment on above: Performed By: #### L [id number] #### [facility] ([facility]) [address] [place] [address] MCH (RBC) [Entitic mass] 29.0 pg Normal 27.0-33.0 [facility] Comment on above: Performed By: #### L [id number] #### [facility] ([facility]) [address] [place] [address] MCV (RBC) [Entitic vol] 96.0 fL Normal 82.0-98.0 [facility] Comment on above: Performed By: #### L [id number] #### [facility] ([facility]) [address] [place] [address] PLATELETS (10*3/UL) IN BLOOD AUTOMATED COUNT 221 10*3/uL Normal 150-400 [facility] Comment on above: Performed By: #### L [id number] #### [facility] ([facility]) [address] [place] [address] RBC (Bld) [#/Vol] 3.21 10*6/uL Low 3.80-5.00 [facility] Comment on above: Performed By: #### L [id number] #### [facility] ([facility]) [address] [place] [address] WBC (Bld) [#/Vol] 8.78 10*3/uL Normal 4.00-10.60 [facility] Comment on above: Performed By: #### L [id number] #### [facility] ([facility]) [address] [place] [address] DSon 06-11-2024 DS ----- ----- Attestation with edits by Josefina Nova MD at 06/11/2024 5:34 PM By using the attestations below, I agree that I have read and verify that the documentation has been personally reviewed by me and ensure that the documentation accurately reflects the encounter. GC: I personally saw this patient on the day of the encounter, performed the lai portions of the service and participated in the management and treatment plan of the patient. I reviewed and confirm the documentation by the Resident Dr Asmita Mcnulty. Please note there may be an additional personal documentation from me. 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 CONTINUE taking these medications Instructions Last Dose Given Next Dose Due ALPRAZolam 0.25 mg disintegrating tablet Commonly known as: Niravam aspirin 81 mg EC tablet atorvastatin 20 mg tablet Commonly known as: Lipitor buPROPion SR 150 mg 12 hr tablet Commonly known as: Wellbutrin SR carvedilol 12.5 mg tablet Commonly known as: Coreg Take 1 tablet (12.5 mg) by mouth with breakfast and with evening meal. colchicine 0.6 mg tablet digoxin 125 MCG tablet Commonly known as: Lanoxin empagliflozin 10 mg Commonly known as: Jardiance Take 1 tablet (10 mg) by mouth in the morning. escitalopram 10 mg tablet Commonly known as: Lexapro gabapentin 100 mg capsule Commonly known as: Neurontin insulin lispro protamin-lispro 100 unit/mL (75-25) injection pen Commonly known as: HumaLOG Mix 75-[address] capsule Commonly known as: PriLOSEC rOPINIRole 0.25 mg tablet Commonly known as: Requip spironolactone 25 mg tablet Commonly known as: Aldactone torsemide 20 mg tablet Commonly known as: Demadex Where to Get Your Medications These medications were sent to [id number] - [place] - [address] [facility] [address] [place] [address] clopidogrel 75 mg tablet Activity Normal activity as tolerated Diet Continue on the same type of diet and foods as you were eating before your admission. Drink plenty of water. Allergies Codeine, Entresto [sacubitril-valsartan], and Penicillins Hospital Course Jenni is a 84-year-old woman. She has history of aortic stenosis status post aortic valve replacement with a 23 mm trifecta tissue valve and surgical exclusion of the left atrial appendage, diastolic heart failure, mild CAD, paroxysmal atrial fibrillation post maze procedure and isolation of the pulmonary veins during the aortic valve replacement surgery. She has history of prior admissions to [facility] with AF/RVR and diastolic heart failure decompensation. The patient was following with cardiology clinic after multiple admission to the hospital due to acute on chronic decompensated heart failure, the last echo was done in 04/2024 showed evidence of severe stenosis of bioprosthetic aortic valve, then she underwent FARA which showed severe stenosis of bioprosthetic aortic valve and severe tricuspid regurgitation, cardiac catheterization and 05/27/2024 showed minimal coronary artery disease and significantly elevated filling and pulmonary pressure, so it was discussed with the patient about TAVR procedure, and then she admitted and underwent TAVR through left subclavian access on 06/10/2024, and then the patient was admitted to surgical ICU for close monitoring, the patient did not have any acute event and she did not have any bleeding from the access sites, and the patient was discharged on 06/11/2024 in good and stable condition with recommendation to continue taking aspirin for life and Plavix for 1 month. Pertinent Physical Exam At Time of Discharge Physical Exam Constitutional: Appearance: She is well-developed. HENT: Head: Normocephalic and atraumatic. Nose: Nose normal. Eyes: General: No scleral icterus. Pupils: Pupils are equal, round, and reactive to light. Neck: Thyroid: No thyromegaly. Vascular: JVD present. Cardiovascular: Rate and Rhythm: Normal rate and regular rhythm. Pulses: Radial pulses are 2+ on the right side and 2+ on the left side. Heart sounds: No Murmur heard. Pulmonary: Effort: Pulmonary effort is normal. No respiratory distress. Breath sounds: Normal breath sounds. No wheezing or rales. Chest: Chest wall: No tenderness. Abdo (more content not included)... Normal [facility] MAGNESIUMon 06-11-2024 Magnesium [Mass/Vol] 2.3 mg/dL Normal 1.9-2.7 [facility] Comment on above: Performed By: #### L [id number] #### [facility] ([facility]) [address] [place] [address] POCT GLUCOSE METER UNSOLICIT ED RESULTSon 06-11-2024 Glucose [Mass/Vol] 121 mg/dL High 70-105 [facility] Comment on above: Order Comment: Waive d Testing in the ED is performed under the ED CLIA certificate #[id number]. Result Comment: vmel mikhail Performed By: #### L [id number] ####[facility] (BEAKER)[address] [place] [address] BASIC METABOLIC PANELon 12-0 Anion gap [Moles/Vol] 11 mmol/L Normal 7-[address] [facility] Comment on above: Performed By: #### L [id number] ####[facility] ([facility])[address] [place] [address] Calcium [Mass/Vol] 8.5 mg/dL Low 8.6-10.3 [facility] Comment on above: Performed By: #### L [id number] ####[facility] ([facility])[address] [place] [address] Chloride [Moles/Vol] 103 mmol/L Normal 98-107 [facility] Comment on above: Performed By: #### L [id number] ####[facility] ([facility])[address] [place] [address] CO2 [Moles/Vol] 26 mmol/L Normal 21-31 [facility] Comment on above: Performed By: #### L [id number] ####[facility] ([facility])[address] [place] [address] Creatinine [Mass/Vol] 1.68 mg/dL High 0.60-1.[address] [facility] Comment on above: Performed By: #### L [id number] ####[facility] ([facility])[address] [place] [address] GLOMERULAR FILTRATION RATE ML/MIN/1.73 SQ M.PREDICTED 29.6 mL/min/1.73m*2 Low >60.0 [place] Comment on above: Result Comment: The [facility]???s estimated glomerular filtration rate (eGFR) will no longer include consideration of race in its calculation. The National Kidney Foundation???s eGFR Task Force developed new recommendations for the estimation of the glomerular filtration rate in the [place] They recommend immediate implementation of the new equation refit without the race variable in all laboratories because the calculation does not include race. In addition to not including race in the calculation and reporting, it included diversity in its development, and has acceptable performance characteristics and potential consequences that do not disproportionately affect any one group of individuals. Performed By: #### L [id number] ####[facility] ([facility])[address] [place] [address] Glucose [Mass/Vol] 107 mg/dL High 70-100 [facility] Comment on above: Performed By: #### L [id number] ####[facility] ([facility])[address] [place] [address] Potassium [Moles/Vol] 3.9 mmol/L Normal 3.5-5.[address] [facility] Comment on above: Performed By: #### L [id number] ####[facility] ([facility])[address] [place] [address] Sodium [Moles/Vol] 136 mmol/L Normal 136-145 [facility] Comment on above: Performed By: #### L [id number] ####[facility] ([facility])[address] [place] [address] Urea nitrogen [Mass/Vol] 41 mg/dL High 7-25 [facility] Comment on above: Performed By: #### L [id number] ####[facility] ([facility])[address] [place] [address] UREA NITROGEN/CREATININE (MASS RATIO) IN SER/PLAS 24.4 Normal [facility] Comment on above: Performed By: #### L [id number] ####[facility] ([facility])[address] [place] [address] CONSULTon 06-10-2024 CONSULT Surgical Intensive C are Unit Consult Note Reason For Consult S/p TAVR Referring Physician: Avtar Date and time of consultation: 165006/10/24 Chief Complaint: Critical Care Management HPI: 84 y.o. year old female who presented with history of aortic stenosis status post aortic valve replacement with a 23 mm trifecta tissue valve and surgical exclusion of the left atrial appendage, diastolic heart failure, mild CAD, paroxysmal atrial fibrillation post maze procedure and isolation of the pulmonary veins during the aortic valve replacement surgery. She has history of prior admissions to [facility] with AF/RVR and diastolic heart failure decompensation. She has normal coronary angiogram in 2016. Patient presents today to the SICU s/p TAVR Review of Systems: Constitutional: Positive for malaise/fatigue. Cardiovascular: Positive for dyspnea on exertion and palpitations. Respiratory: Positive for shortness of breath. Hematologic/Lymphatic: Bruises/bleeds easily. Musculoskeletal: Positive for arthritis, back pain and muscle weakness. All other systems reviewed and are negative. History: The following information was obtained through chart review as the patient was unable to provide information due to emergency nature and/or medical condition Past Medical History: has a past medical history of Abnormal ECG, Anemia, Aortic valve disorder (04/20/2016), Arrhythmia, Atrial fibrillation (CMS/HCC), Bradycardia, CHF (congestive heart failure) (CMS/HCC), Heart valve disease, Hyperlipidemia, Hypertension, and Sleep apnea. Past Surgical History: has a past surgical history that includes Cardiac catheterization (12/20/2021); Aortic valve replacement (05/04/2016); Knee surgery; and CTA Abdomen Pelvis W IV Contrast (08/19/2018). Allergies: Codeine, Entresto [sacubitril-valsartan], and Penicillins Home Medications: Medications Prior to Admission Medication Sig Dispense Refill Last Dose ALPRAZolam (Niravam) 0.25 mg disintegrating tablet Take 0.25 mg by mouth if needed in the morning, at noon, and at bedtime for anxiety. 06/09/2024 aspirin 81 mg EC tablet Take 81 mg by mouth in the morning. 06/10/2024 atorvastatin (Lipitor) 20 mg tablet Take 1 tablet by mouth at bedtime. 06/09/2024 buPROPion SR (Wellbutrin SR) 150 mg 12 hr tablet Take 1 tablet by mouth in the morning and at bedtime. 06/10/2024 carvedilol (Coreg) 12.5 mg tablet Take 1 tablet (12.5 mg) by mouth with breakfast and with evening meal. 60 tablet 0 06/10/2024 colchicine 0.6 mg tablet Take 0.6 mg by mouth if needed. Past Month digoxin (Lanoxin) 125 MCG tablet Take 125 mcg by mouth in the morning. 06/10/2024 empagliflozin (Jardiance) 10 mg Take 1 tablet (10 mg) by mouth in the morning. 30 tablet 11 06/10/2024 escitalopram (Lexapro) 10 mg tablet Take 1 tablet by mouth in the morning. 06/10/2024 gabapentin (Neurontin) 100 mg capsule take 1 capsule by mouth three times a day 06/10/2024 at m, insulin lispro protamin-lispro (HumaLOG Mix 75-25) 100 unit/mL (75-25) injection Inject 8 Units under the skin with breakfast and with evening meal. Take 8 units in morning and 8 units in evening. 06/09/2024 omeprazole (PriLOSEC) [address] capsule Take 1 capsule by mouth in the morning. 06/10/2024 rOPINIRole (Requip) 0.25 mg tablet TAKE 1 TABLET BY MOUTH ONE TO THREE HOURS BEFORE BEDTIME 06/09/2024 spironolactone (Aldactone) 25 mg tablet Take 25 mg by mouth in the morning. 06/09/2024 torsemide (Demadex) 20 mg tablet Take 50 mg by mouth in the morning. Take 2.5 tablets (20 mg tablets) 06/09/2024 Social History: reports that she has quit smoking. Her smoking use included cigarettes. She has never used smokeless tobacco. She reports that she does not currently use alcohol. She reports that she does not use drugs. Family History: pulled available information in [facility] from previous visits Family History Problem Relation Name Age of Onset Diabetes Father Heart failure Father Other (neoplastic disease) Other Interval History: Objective Vitals: BP: (85-150)/(47-97) 140/54 (06/10 1645) Systolic BP Percentile: -- Diastolic BP Percentile: -- Temp: -- Temp Source: -- Heart Rate: [72-99] 84 (06/10 1645) Resp: [10-19] 15 (06/10 1645) SpO2: [91 %-100 %] 96 % (06/10 1645) Height: [157.5 cm (5' 2 )] 157.5 cm (5' 2 ) (06/10 1029) Weight: [62.6 kg (138 lb)] 62.6 kg (138 lb) (06/10 1029) No data recorded No intake/output data recorded. Physical Exam: General: Awake, Alert, and No acute distress Head: Normocephalic and Atraumatic Neurologic: Alert And Oriented to self, place and time and Moving Extremities and Following Commands Neck: No Abrasions, Contusions, Or Ecchymosis Noted Back: No Abrasions, Contusions, Or Ecchymosis Noted Lungs: Clear to Auscultation Bilaterally With Normal Work Of Breathing Chest Wall: No Crepitus, Deformities, Lacerations, Or Abrasions Cardiovascular: Regular rate and rhythm Palpable femoral/radial/DP pulses (more content not included)... Normal [facility] HPon 06-10-2024 HP H&P reviewed. The pa marilyn was examined and there are no changes to the H&P. Normal [facility] NURSNOTEon 06-10-2024 NURSNOTE Report given to KING Luciano from GORAN Jurado RN notified RN of pts procedural intervention site, allergies, IV location/status, and medications given during the procedure. Any diagnostics, abnormal labs, abnormal assessment findings, orders and safety concerns/issues were reviewed. RN encouraged RN receiving handoff to voice any questions or concerns, and answered any questions or concerns if verbalized. RN verbalizes the pt will be coming up to the floor soon. Normal [facility] NURSNOTE CHG wipes and betadi ne nasal swabs completed. Normal [facility] POCT GLUCOSE METER UNSOLICIT ED RESULTSon 06-10-2024 Glucose [Mass/Vol] 170 mg/dL High 70-105 [facility] Comment on above: Order Comment: Waive d Testing in the ED is performed under the ED CLIA certificate #[id number]. Result Comment: [email or web address] Performed By: #### L [id number] #### [facility] ([facility]) [address] [place] [address] Glucose [Mass/Vol] 124 mg/dL High 70-105 [facility] Comment on above: Order Comment: Waive d Testing in the ED is performed under the ED CLIA certificate #[id number]. Result Comment: asko rigoberto Performed By: #### L [id number] ####[facility] ([facility]ER)[address] [place] [address] TYPE AND SCREENon 06-10-2024 AB SCREEN Negative Normal [facility] Comment on above: Performed By: #### L [id number] #### [facility] , ABO group Nom (Bld) A Normal [facility] Comment on above: Performed By: #### L [id number] #### [facility] , RH TYPE IN BLOOD Negative Normal [facility] Comment on above: Performed By: #### L [id number] #### [facility] , Telephoneon 06-03-2024 Telephone [phone] QuinonesJenni M 1940 F Date Provider Department Center 06/03/2024 [address]39[address]-[facility]WPYAHEJULIAN [facility] Family History Problem Relation Age of Onset Diabetes Father Heart failure Father Other Other Family Status - Relation Status Age at Father Other Reason for Visit and Comments: Dental clearance reminder [Other] Normal [facility] CMP (CMP) (FOR REMOTE FH C USE)on 06-02-2024 Albumin [Mass/Vol] 3.1 g/dL Low 3.4 - 5.0 g/dL [facility] ALBUMIN GLOBULIN RATIO 0.6 [facility] ALP [Catalytic activity/Vol] 109 U/L 46 - 116 U/L [facility] ALT [Catalytic activity/Vol] 9 U/L Low 14 - 59 U/L [facility] Anion gap [Moles/Vol] 15.4 mmol/L [facility] AST [Catalytic activity/Vol] 12 U/L Low 15 - 37 U/L [facility] Bilirubin [Mass/Vol] 0.7 mg/dL 0.2 - 1 .0 mg/dL [facility] Calcium [Mass/Vol] 9.7 mg/dL 8.5 - 10. 1 mg/dL [facility] Chloride [Moles/Vol] 100 mmol/L 98 - 10 7 mmol/L [facility] CO2 [Moles/Vol] 28.9 mmol/L 21.0 - 32.0 mmol/L [facility] Creatinine [Mass/Vol] 1.99 mg/dL High 0.55 - 1.02 mg/dL [facility] GFR/1.73 sq M.predicted CKD-EPI (S/P/Bld) [Vol rate/Area] 29 Low >=60 mL/min/1.73 m 2 [facility] Globulin (S) [Mass/Vol] 5.5 g/dL [facility] Glucose [Mass/Vol] 95 mg/dL 74 - 106 mg/dL [facility] Interpretation and review of laboratory results Abnormal [facility] Potassium [Moles/Vol] 4.3 mmol/L 3.5 - 5.1 mmol/L [facility] Protein [Mass/Vol] 8.6 g/dL High 6.4 - 8.2 g/dL [facility] Sodium [Moles/Vol] 140 mmol/L 136 - 145 mmol/L [facility] TBH EGFR-NON AF GUAMANIAN 24 Low >=60 mL/min/1.73 m 2 [facility] Urea nitrogen [Mass/Vol] 34 mg/dL High 7.0 - 18.0 mg/dL [facility] Urea nitrogen/Creatinine [Mass ratio] 17.1 mg/mg [facility] HPon 06-02-2024 [facility] Cardiology - [facility] Subjective Jennierick Quinones is a 84 y.o. year old female patient being seen to discuss TAVR. Patient Active Problem List Diagnosis Anemia Diastolic heart failure (CMS/HCC) Dyspnea Hyperlipemia Mitral and aortic incompetence Atrial fibrillation with rapid ventricular response ([facility]) Abnormal gait Abnormal laboratory test result Acquired hypothyroidism Acute on chronic systolic heart failure (CMS/HCC) Allergic rhinitis due to pollen Aortic valve disorder Asthma Chronic obstructive pulmonary disease (CMS/HCC) Diabetic renal disease (CMS/HCC) Difficulty walking Diverticulosis of colon Drug-induced constipation History of iron deficiency Heart valve transplanted Hyperthyroidism USP current use of anticoagulant therapy Mixed anxiety [...] of rib of left side Lumbar spondylosis Nonrheumatic aortic valve stenosis Neurogenic claudication Family History Problem Relation Name Age of Onset Diabetes Father Heart failure Father Other (neoplastic disease) Other Social History Tobacco Use Smoking status: Former Types: Cigarettes Smokeless tobacco: Never Substance Use Topics Alcohol use: Not Currently Drug use: Never HPI Jenni is seen in follow-up. She is a 84-year-old woman. She has history of aortic stenosis status post aortic valve replacement with a 23 mm trifecta tissue valve and surgical exclusion of the left atrial appendage, diastolic heart failure, mild CAD, paroxysmal atrial fibrillation post maze procedure and isolation of the pulmonary veins during the aortic valve replacement surgery. She has history of prior admissions to [facility] with AF/RVR and diastolic heart failure decompensation. [...] our cardiology clinic and Jardiance was added. Recently she was evaluated in the emergency room in April 2024 because of worsening shortness of breath. A transthoracic echocardiogram showed evidence of severe stenosis of the bioprosthetic valve. She then underwent further evaluation by transesophageal echocardiogram that showed severe stenosis of the bioprosthetic aortic valve and severe tricuspid regurgitation. Cardiac catheterization 05/27/2024 showed minimal coronary artery disease (more content not included)... Normal [facility] Office Visiton 06-02-2024 Follow-up visit [id number] Jenni Quinones 1940 F Date Provider Department Center 06/02/2024 Rocky-JOSEFINA NOVA C[facility] Family History Problem Relation Age of Onset Diabetes Father Heart failure Father Other Other Family Status - Relation Status Age at Father Other Level of Service:33689 [place] OFFICE/OUTPATIENT ESTABLISHED HIGH MDM 40 MIN Normal [facility] Orders Onlyon 05-30-2024 Orders Only [id number] Jenni Quinones 1940 Date Provider Department Center 05/30/2024 Zohra-HOMA CHAVARRIA Judah CARD [facility] Family History Problem Relation Age of Onset Diabetes Father Heart failure Father Other Other Family Status - Relation Status Age at Father Other Normal [facility] CTA ABDOMEN PELVIS W IV CONT Frandy [...] as reasonably achievable. Electronically signed: Meena Lopes. Yaneth Invalid Interpretation Code [facility] CTA CHEST W IV CONTRASTon CTA CHEST [...] as reasonably achievable. Electronically signed: Meena Lopes. Yaneth Invalid Interpretation Code [facility] Comment on above: Order Comment: Low d ose contrast (40 ml) Consulton 05-29-2024 Consult [id number] Jenni Quinones 1940 F Date Provider Department Center 05/29/202433430-WTMENZCRAIG BRAUN HVCTS [place] [facility] Family History Problem Relation Age of Onset Diabetes Father Heart failure Father Other Other Family Status - Relation Status Age at Father Other Level of Service:48137 [place] OFFICE/OP CONSLTJ NEW/EST PT HIGH MDM 55 MINUTES Reason for Visit and Comments: New Patient [632[facility] reviewed. The zoey sanders was examined and there are no changes [...] wishes to proceed. Kisha Durand MD PGY-6 Freight Elevator Operator [facility] ----- ----- Attestation signed by Pankaj Todd MD at 05/27/2024 11:30 AM I personally saw and examined the patient on the same date of service as resident/fellow Dr ospina. I discussed the findings and therapeutic plan with the resident/fellow Dr ospina. I agree with the documentation, except for any edits/updates below. Teaching Physician's Revisions: None Pankaj Todd MD, [facility] ----- H&P reviewed. The patient was examined and there are no changes to the H&P. The procedure was explained to the patient. The risks and benefits of the procedure were explained to the patient who showed understanding and with full capacity elected to proceed with the procedure. All questions were addressed and answered. Yanet Ospina MD Freight Elevator Operator - PGY6 [facility] NURSNOTEon 05-27-2024 NURSNOTE RN educated pt on [...] off of unit with all of belongings. [facility] NURSNOTE Bedside swallow stud y completed and passed. [facility] Orders Onlyon 05-27-2024 Orders Only [id number] Jenni Quinones 1940 F Date Provider Department Center 05/27/2024 Zohra-HOMA CHAVARRIA [facility] Family History Problem Relation Age of Onset Diabetes Father Heart failure Father Other Other Family Status - Relation Status Age at Father Other [facility] ALL BASIC METABOLIC PANELon 05-26-2024 Anion gap [Moles/Vol] 11.9 mmol/L NO [facility] Calcium [Mass/Vol] 9.4 mg/dL 8.5 - 10. 1 mg/dL [facility] Chloride [Moles/Vol] 98 mmol/L 98 - 10 7 mmol/L [facility] CO2 [Moles/Vol] 34.2 mmol/L High 21.0 - 32.0 mmol/L [facility] Creatinine [Mass/Vol] 1.89 mg/dL High 0.55 - 1.02 mg/dL [facility] GFR/1.73 sq M.predicted CKD-EPI (S/P/Bld) [Vol rate/Area] 31 Low >=60 mL/min/1.73 m 2 [facility] Glucose [Mass/Vol] 106 mg/dL 74 - 106 mg/dL [facility] Interpretation and review of laboratory results Abnormal [facility] Potassium [Moles/Vol] 4.1 mmol/L 3.5 - 5.1 mmol/L [facility] Sodium [Moles/Vol] 140 mmol/L 136 - 145 mmol/L [facility] TBH EGFR-NON AF GUAMANIAN 25 Low >=60 mL/min/1.73 m 2 [facility] Urea nitrogen [Mass/Vol] 38 mg/dL High 7.0 - 18.0 mg/dL [facility] Urea nitrogen/Creatinine [Mass ratio] 20.1 mg/mg [facility] ALL CBC WITH AUTO DIFFon BASOPHILS ABSOLUTE AUTO 0.1 [facility] Basophils/100 WBC (Bld) 0.7 % 0.2 - 2.0 % [facility] Eosinophils/100 WBC (Bld) 2.4 % 0.9 - 7.0 % [facility] Erythrocyte distribution width (RBC) [Ratio] 16 % High 11.0 - 15.0 % [facility] Hematocrit (Bld) [Volume fraction] 37.4 % 36.0 - 48.0 % [facility] Hemoglobin (Bld) [Mass/Vol] 11.4 g/dL Low 12.0 - 16.0 g/dL [facility] IMMATURE GRANULOCYTES ABS AUTO 0.03 [facility] Immature granulocytes/100 WBC (Bld) 0.3 % 0.0 - 0.5 % [facility] Interpretation and review of laboratory results Abnormal [facility] LYMPHOCYTES ABSOLUTE AUTO 0.8 Low [facility] Lymphocytes/100 WBC (Bld) 7.3 % Low 20.5 - 60.0 % [facility] MCH (RBC) [Entitic mass] 29.3 pg 26.7 - 34.0 pg [facility] MCHC (RBC) [Mass/Vol] 30.5 g/dL 29.9 - 35.2 g/dL [facility] MCV (RBC) [Entitic vol] 96.1 fL 81.0 - 99.0 fL [facility] MONOCYTES ABSOLUTE AUTO 1.1 High [facility] Monocytes/100 WBC (Bld) 10.3 % 1.7 - 12.0 % [facility] NEUTROPHILS ABSOLUTE AUTO 8.4 High [facility] Neutrophils/100 WBC (Bld) 79 % High 43.0 - 75.0 % [facility] Platelet mean volume (Bld) [Entitic vol] 9.6 fL 9.5 - 13.5 fL [facility] TB EO # 0.3 [facility] TB PLT 273 [facility] TB RBC 3.89 Low [facility] TB WBC 10.7 [facility] Orders Onlyon 05-23-2024 Orders Only [id number] Jenni Quinones 1940 F Date Provider Department [place] 05/23/2024 CHAYO TRAN [facility] [place] [facility] Family History Problem Relation Age of Onset Diabetes Father Heart failure Father Other Other Family Status - Relation Status Age at Father Other Normal [facility] HP 05-13-2024 Cardiovascular Medic [facility] SUBJECTIVE Chief Complaint Patient presents with Valve [...] c/o chest pain. She was transferred to [facility] for further cardiac care. 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 Normal [facility] Office Visiton 05-13-2024 Follow-up visit [id number] Jenni Quinones 1940 F Date Provider Department Center 05/13/2024 BRENT PÉREZ [facility] Family History Problem Relation Age of Onset Diabetes Father Heart failure Father Other Other Family Status - Relation Status Age at Father Other Level of Service:63748 [place] OFFICE/OUTPATIENT ESTABLISHED HIGH [facility] 40 MIN Reason for Visit and Comments: Valve Disorder [3372] Congestive Heart Failure [127] Normal [facility] STR cardiac stress/lexiscano n 04-27-2024 STR cardiac stress/lexiscan [facility] [place] [address] Cardiac Stress Test Signed Patient: Jenni Quinones MR#: [id number] 0 : 1940 Acct:[id number] Age/Sex: 84 / F ADM Date: 04/25/24 Loc: Room: [address] [place] [address] Type: DIS IN Attending Dr: Javan Gruber MD Copies to: Palmira Lowery MD, FACC Ingrid Haynes DO Ordering Provider: [...] [id number] Dictated By: Palmira Lowery MD, [facility] 04/27/24 1606 Signed By: 05/01/24 1218 Normal [facility] A1C with Estimated Average G jaylin 04-25-2024 Glucose [Mass/Vol] 171 mg/dL Normal [facility] Comment on above: Result Comment: PERF ORMED BY: [place] [address] PATHOLOGIST VP OF TECHNOLOGY ALVARO LEWIS M.D. Performed By: #### M G, LIPID, A1C WT eA, BMP, HEPATIC #### [place] [id number] [facility] Activated partial thrombopla stin time (aPTT) in platelet poor plasma by coagulation aOrdered By: Lalo Carter on 04-25-2024 aPTT Coag (PPP) [Time] 30.0 s 25.1-36.5 [facility] Comment on above: A hematocrit value g reater than 55% may lead to inaccurate results in coagulation testing. Patients having hematocrit values >55% require a special collection tube for coagulation studies. Please contact the laboratory at [phone] for redraw instructions. Alanine aminotransferase [En zymatic activity/volume] in Serum or PlasmaOrdered By: Lalo Carter on 04-25-2024 ALT [Catalytic activity/Vol] 7 U/L Normal 7-52 [facility] Comment on above: Order Comment: FASTI NG Y Performed By: #### M G, LIPID, A1C WTH eA, BMP, HEPATIC #### [address] [address] [facility] Albumin [Mass/volume] in Ser um or Plasma by Bromocresol green (BCG) dye binding methoOrdered By: Lalo Carter on 04-25-2024 Albumin BCG dye [Mass/Vol] 3.1 g/dL Low 3.5-5.7 [facility] Alkaline phosphatase [Enzyma tic activity/volume] in Serum or PlasmaOrdered By: Lalo Carter on 04-25-2024 ALP [Catalytic activity/Vol] 78 U/L Normal 34-104 [facility] Comment on above: Order Comment: FASTI NG Y Performed By: #### M G, LIPID, A1C WTH eA, BMP, HEPATIC #### [address] Aspartate aminotransferase [ Enzymatic activity/volume] in Serum or PlasmaOrdered By: Lalo Carter on 04-25-2024 AST [Catalytic activity/Vol] 13 U/L Normal 13-39 [facility] Comment on above: Order Comment: FASTI NG Y Performed By: #### M G, LIPID, A1C WTH eA, BMP, HEPATIC #### [address] Automated basophil %Ordered By: Lalo Carter on 04-25-2024 Basophils/100 WBC (Bld) 0.8 % Normal . [facility] Comment on above: Performed By: #### M G, LIPID, A1C WTH eA, BMP, HEPATIC #### [facility] [address] [place] [address] Automated basophil countOrde red By: Lalo Carter on 04-25-2024 Basophils (Bld) [#/Vol] 0.1 10*3/uL Normal 0.0-0.2 [facility] Comment on above: Result Comment: PERF ORMED BY: [place] [address] PATHOLOGIST VP OF TECHNOLOGY ALVARO LEWIS M.D. Performed By: #### M G, LIPID, A1C WTH eA, BMP, HEPATIC #### [address] Automated blood monocyte cou ntOrdered By: Lalo Carter on 04-25-2024 Monocytes (Bld) [#/Vol] 0.8 10*3/uL Normal 0.0-0.8 [facility] Comment on above: Performed By: #### M G, LIPID, A1C WTH eA, BMP, HEPATIC #### [facility] [address] Automated eosinophil %Ordere d By: Lalo Carter on 04-25-2024 Eosinophils/100 WBC (Bld) 2.9 % Normal . [facility] Comment on above: Performed By: #### M G, LIPID, A1C WTH eA, BMP, HEPATIC #### [facility] [address] Automated eosinophil countOr dered By: Lalo Carter on 04-25-2024 Eosinophils (Bld) [#/Vol] 0.3 10*3/uL Normal 0.0-0.45 [facility] Comment on above: Performed By: #### M G, LIPID, A1C WTH eA, BMP, HEPATIC #### [facility] [address] [place] [address] Automated monocyte %Ordered By: Lalo Carter on 04-25-2024 Monocytes/100 WBC (Bld) 8.7 % Normal . [facility] Comment on above: Performed By: #### M G, LIPID, A1C WTH eA, BMP, HEPATIC #### [facility] [address] [place] [address] Automated neutrophil %Ordere d By: Lalo Carter on 04-25-2024 Neutrophils/100 WBC (Bld) 79.6 % Normal . [facility] Comment on above: Performed By: #### M G, LIPID, A1C WTH eA, BMP, HEPATIC #### [facility] [address] [place] [address] Basic Metabolic Panelon 04-08 Creatinine Clr Calc Pharmacy 32.54 Normal [facility] Comment on above: Order Comment: FASTI NG Y Performed By: #### M G, LIPID, A1C WTH eA, BMP, HEPATIC #### [facility] [address] [place] [address] GFR/1.73 sq M.predicted MDRD (S/P/Bld) [Vol rate/Area] 44.359 mL/min/{1.73_m2} Normal [facility] Comment on above: Order Comment: FASTI NG Y Performed By: #### M G, LIPID, A1C WTH eA, BMP, HEPATIC #### [facility] [address] [place] [address] Bilirubin.direct [Mass/volum e] in Serum or PlasmaOrdered By: Lalo Carter on 04-25-2024 Bilirubin.direct [Mass/Vol] 0.10 mg/dL 0.03-0.18 [facility] Bilirubin.total [Mass/volume ] in Serum or PlasmaOrdered By: Lalo Carter on 04-25-2024 Bilirubin [Mass/Vol] 0.5 mg/dL Normal 0.3-1.0 [facility] Comment on above: Order Comment: FASTI NG Y Performed By: #### M G, LIPID, A1C WTH eA, BMP, HEPATIC #### [facility] [address] [place], [place] [id number] [facility] CT angio chest PE protocolon 04-25-2024 CT angio chest PE protocol [facility] Main [place] [address] [place] [address] CT Scan Report Signed Patient: Jenni Quinones MR#: [id number] 0 : 1940 Acct:[id number] Age/Sex: 84 / F ADM Date: 04/25/24 Loc: Room: [address] [place] [address] Type: ADM IN Attending Dr: Lalo Carter [...] Rosina Levin M.D.04/25/2024 8:30 AM Dictation Location: [place] [address] Transcribed By: [facility] 04/25/24829 Dictated By: Rosina Levin MD 04/25/24805 Signed By: 04/25/24829 Normal [facility] Calcium [Mass/volume] in Ser um or PlasmaOrdered By: Lalo Carter on 04-25-2024 Calcium [Mass/Vol] 8.4 mg/dL Low 8.6-10.3 [facility] Comment on above: Order Comment: FASTI NG Y Performed By: #### M G, LIPID, A1C WTH eA, BMP, HEPATIC #### [facility] [address] [place] [id number] [facility] Capillary blood glucose mer urement by glucometer (mass/volume)Ordered By: Javan Gruber on 04-25-2024 Glucose [Mass/Vol] 108 mg/dL Normal [facility] Comment on above: Random Glucose Refer ence Range is dependent on time and content of last meal. Glucose of more than 200 mg/dL in a nonstressed, ambulatory subject supports the diagnosis of Diabetes Mellitus. Result Comment: [place] om Glucose Reference Range is dependent on time and content of last meal. Glucose of more than 200 mg/dL in a nonstressed, ambulatory subject supports the diagnosis of Diabetes Mellitus. Performed By: #### M G, LIPID, A1C WTH eA, BMP, HEPATIC #### [facility] [address] [place] [id number] [place] Carbon dioxide, total [Moles /volume] in Serum or PlasmaOrdered By: Lalo Carter on 04-25-2024 CO2 [Moles/Vol] 30.3 mmol/L Normal 21.0-31.0 [facility] Comment on above: Order Comment: FASTI NG Y Performed By: #### M G, LIPID, A1C WTH eA, BMP, HEPATIC #### [facility] [address] [place] [id number] [place] Chloride [Moles/volume] in S theresa or PlasmaOrdered By: Lalo Carter on 04-25-2024 Chloride [Moles/Vol] 102 mmol/L Normal 98-107 [facility] Comment on above: Order Comment: FASTI NG Y Performed By: #### M G, LIPID, A1C WTH eA, BMP, HEPATIC #### [facility] [address] [place] [id number] [place] Cholesterol [Mass/volume] in Serum or PlasmaOrdered By: Lalo Carter on 04-25-2024 Cholesterol [Mass/Vol] 88 mg/dL Low 140-200 [facility] Comment on above: Chol less than 200 m g/dl low riskChol 201-239 mg/dl borderline riskChol 240 mg/dl and greater high risk Order Comment: FASTI NG Y Result Comment: Chol less than 200 mg/dl low risk Chol 201-239 mg/dl borderline risk Chol 240 mg/dl and greater high risk Performed By: #### M G, LIPID, A1C WTH eA, BMP, HEPATIC #### [facility] [address] [place] [address] [place] Cholesterol in LDL Calc [Mas s/Vol]Ordered By: Lalo Carter on 04-25-2024 Cholesterol in LDL [Mass/Vol] 36 mg/dL 0-100 [facility] Comment on above: LDL ATP III CLASSIFI CATIONLDL less than 100 mg/dL OptimalLDL 100-129 mg/dL Near or above optimalLDL 130-159 mg/dL Borderline highLDL 160-189 mg/dL HighLDL greater than 189 mg/dL Very high Cholesterol in VLDL Calc [Ma ss/Vol]Ordered By: Lalo Carter on 04-25-2024 Cholesterol in VLDL [Mass/Vol] 18 mg/dL [facility] Complete Blood Count Auto Di ffon 04-25-2024 Mean Corpuscular HGB Conc 32.8 g/dL Normal 32.0-35.0 [facility] Comment on above: Performed By: #### M G, LIPID, A1C WTH eA, BMP, HEPATIC #### [facility] [address] [place] [address] [place] NRBC% 0.1 /100{WBC} Normal 0-0.5 [facility] Comment on above: Performed By: #### M G, LIPID, A1C WTH eA, BMP, HEPATIC #### [facility] [address] [place] [address] [place] Creatinine [Mass/volume] in Serum or PlasmaOrdered By: Lalo Carter on 04-25-2024 Creatinine [Mass/Vol] 1.20 mg/dL Normal 0.60-1.20 [facility] Comment on above: Order Comment: FASTI NG Y Performed By: #### M G, LIPID, A1C WT eA, BMP, HEPATIC #### [address] ECG 12 lead ECGon 04-25-2024 ECG 12 lead ECG [facility] [place] [address] Electrocardiograph Report Signed Patient: Jenni Quinones MR#: [id number] 0 : 1940 Acct:[id number] Age/Sex: 84 / F ADM Date: 04/25/24 Loc: 4C Room: [address] [place] [address] Type: DIS IN Attending Dr: Javan Gruber [...] ECGs available Confirmed by SEBASTIÁN MOULTON [facility], [place] ([id number]) on 04/25/2024 5:26:27 PM Referred By: Electronically Signed By: [place] LOWERY MD [facility] Transcribed By: MUS Signed By Palmira Lowery MD, [facility] 04/25/24 1726 Normal [facility] ECH echo transthoracicon ECH echo transthoracic [facility] [place] [address] Echocardiogram Signed Patient: Jenni Quinones MR#: [id number] 0 : 1940 Acct:[id number] Age/Sex: 84 / F ADM Date: 04/25/24 Loc: Room: [address] [place] [address] Type: DIS IN Attending Dr: Javan Gruber MD Ordering Provider: Lalo Carter DO Date of Service: 04/25/24 ECH/ECH echo transthoracic: history of aortic insufficiency. Copies to: Palmira Lowery MD, [facility] Lalo L BrianDO kimi Weight: 166 lb Performed By: Cindy Benton [...] [place] (more content not included)... Normal [facility] Erythrocyte distribution wid th [Ratio] by Automated countOrdered By: Lalo Carter on 04-25-2024 Erythrocyte distribution width (RBC) [Ratio] 18.3 % High 11.9-15.3 [facility] Comment on above: Performed By: #### M G, LIPID, A1C WTH eA, BMP, HEPATIC #### [facility] [address] Erythrocytes [#/volume] in B lood by Automated countOrdered By: Lalo Carter on 04-25-2024 RBC (Bld) [#/Vol] 3.18 10*6/uL Low 3.60-5.00 [facility] Comment on above: Performed By: #### M G, LIPID, A1C WTH eA, BMP, HEPATIC #### [facility] [address] [place] [id number] [place] Glucose Poct Glucometerson 1 Commemt1 Glu2: Cleaned Meter Normal [facility] Comment on above: Result Comment: PERF ORMED BY: [facility] [address] [place] [address] PATHOLOGIST VP OF TECHNOLOGY ALVARO LEWIS M.D. Performed By: #### M G, LIPID, A1C WTH eA, BMP, HEPATIC #### [facility] [address] [place] [id number] [place] Glucose [Mass/volume] in Ser um or PlasmaOrdered By: Lalo Carter on 04-25-2024 Glucose [Mass/Vol] 121 mg/dL High 70-100 [facility] Comment on above: ADA recommended refe rence rangeRandom Glucose Reference Range is dependent on time and content of last meal. Glucose of more than 200 mg/dL in a nonstressed, ambulatory subject supports the diagnosis of Diabetes Mellitus. Order Comment: FASTI NG Y Result Comment: [place] om Glucose Reference Range is dependent on time and content of last meal. Glucose of more than 200 mg/dL in a nonstressed, ambulatory subject supports the diagnosis of Diabetes Mellitus. ADA recommended reference range Performed By: #### M G, LIPID, A1C WTH eA, BMP, HEPATIC #### [facility] [address] [place] [id number] [place] Glucose mean value [Mass/vol ume] in Blood Estimated from glycated hemoglobinOrdered By: Lalo Carter on 04-25-2024 Average glucose Estimated from glycated hemoglobin (Bld) [Mass/Vol] 171 mg/dL [facility] Hematocrit [Volume Fraction] of Blood by Automated countOrdered By: Lalo Carter on 04-25-2024 Hematocrit (Bld) [Volume fraction] 28.8 % Low 34.0-46.4 [facility] Comment on above: Performed By: #### M G, LIPID, A1C WTH eA, BMP, HEPATIC #### [facility] [address] [place] [address] [place] Hemoglobin A1c percentageOrd ered By: Lalo Carter on 04-25-2024 HbA1c (Bld) [Mass fraction] 7.6 % High 4.3-5.6 [facility] Comment on above: Increased risk for d iabetes: 5.7 - 6.4diabetes: >6.4glycemic control for adults with diabetes: <7.0 Result Comment: Incr eased risk for diabetes: 5.7 - 6.4 diabetes: >6.4 glycemic control for adults with diabetes: <7.0 Performed By: #### M G, LIPID, A1C WTH eA, BMP, HEPATIC #### [facility] [address] Hemoglobin [Mass/volume] in BloodOrdered By: Lalo Carter on 04-25-2024 Hemoglobin (Bld) [Mass/Vol] 9.4 g/dL Low 11.8-15.4 [facility] Comment on above: Performed By: #### M G, LIPID, A1C WTH eA, BMP, HEPATIC #### [facility] [address] Hepatic Panelon 04-25-2024 Albumin [Mass/Vol] 3.1 g/dL Low 3.5-5.7 [facility] Comment on above: Order Comment: FASTI NG Y Performed By: #### M G, LIPID, A1C WTH eA, BMP, HEPATIC #### [facility] [address] Bilirubin,Indirect 0.4 mg/dL Normal [facility] Comment on above: Order Comment: FASTI NG Y Performed By: #### M G, LIPID, A1C WTH eA, BMP, HEPATIC #### [facility] [address] Bilirubin.indirect [Mass/Vol] 0.10 mg/dL Normal 0.03-0.18 [facility] Comment on above: Order Comment: FASTI NG Y Performed By: #### M G, LIPID, A1C WTH eA, BMP, HEPATIC #### [facility] [address] [place] [id number] [place] INR in Platelet poor plasma by Coagulation assayOrdered By: Lalo Carter on 04-25-2024 INR Coag (PPP) [Relative time] 1.1 {INR} Normal [facility] Comment on above: INR Therapeutic Rang [...] LIPID, A1C WTH eA, BMP, HEPATIC #### [facility] [address] Leukocytes [#/volume] correc paige for nucleated erythrocytes in Blood by Automated counOrdered By: Lalo Vargaspierce on 04-25-2024 WBC corrected for nucl RBC Auto (Bld) [#/Vol] 8.9 10*3/uL 3.8-11.6 [facility] Leukocytes [#/volume] in Blo od by Automated countOrdered By: Lalo Emma on 04-25-2024 WBC (Bld) [#/Vol] 8.9 10*3/uL Normal 3.8-11.6 [facility] Comment on above: Performed By: #### M G, LIPID, A1C WTH eA, BMP, HEPATIC #### [facility] [address] Lipid Panelon 04-25-2024 LDL Cholesterol,Calculate d 36 mg/dL Normal 0-100 [facility] Comment on above: Order Comment: FASTI NG Y Result Comment: LDL ATP III CLASSIFICATION LDL less than 100 mg/dL Optimal LDL 100-129 mg/dL Near or above optimal LDL 130-159 mg/dL Borderline high LDL 160-189 mg/dL High LDL greater than 189 mg/dL Very high Performed By: #### M G, LIPID, A1C WTH eA, BMP, HEPATIC #### [address] Triglyceride w/Reflex 92 mg/dL Normal 0-149 [facility] Comment on above: Order [...] LIPID, A1C WTH eA, BMP, HEPATIC #### [address] VLDL CHOLESTEROL 18 mg/dL Normal [facility] Comment on above: Order Comment: FASTI NG Y Performed By: #### M G, LIPID, A1C WTH eA, BMP, HEPATIC #### [address] Lymphocytes [#/volume] in Bl ood by Automated countOrdered By: Lalo Carter on 04-25-2024 Lymphocytes (Bld) [#/Vol] 0.7 10*3/uL Low 1.00-4.8 [facility] Comment on above: Performed By: #### M G, LIPID, A1C WTH eA, BMP, HEPATIC #### [place] [address] [place] Lymphocytes/100 leukocytes i n Blood by Automated countOrdered By: Lalo Carter on 04-25-2024 Lymphocytes/100 WBC (Bld) 8.0 % Normal . [facility] Comment on above: Performed By: #### M G, LIPID, A1C WTH eA, BMP, HEPATIC #### [address] MCH [Entitic mass] by Automa paige countOrdered By: Lalo Carter on 04-25-2024 MCH (RBC) [Entitic mass] 29.7 pg Normal 24.7-34.3 [facility] Comment on above: Performed By: #### M G, LIPID, A1C WTH eA, BMP, HEPATIC #### [address] MCHC Auto (RBC) [Mass/Vol]Or dered By: Lalo Carter on 04-25-2024 MCHC (RBC) [Mass/Vol] 32.8 g/dL 32.0-35.0 [facility] MCV [Entitic volume] by Auto mated countOrdered By: Lalo Carter on 04-25-2024 MCV (RBC) [Entitic vol] 90.6 fL Normal 80-100 [facility] Comment on above: Performed By: #### M G, LIPID, A1C WTH eA, BMP, HEPATIC #### [address] Magnesium [Mass/volume] in S theresa or PlasmaOrdered By: Lalo Carter on 04-25-2024 Magnesium [Mass/Vol] 2.1 mg/dL Normal 1.9-2.7 [facility] Comment on above: Order Comment: FASTI NG Y Performed By: #### M G, LIPID, A1C WTH eA, BMP, HEPATIC #### [address] [place] lissy perf SPECT rest stron 04-25-2024 NM lissy perf SPECT rest str [facility] [place] [address] Nuclear Medicine Report Signed Patient: Jenni Quinones MR#: [id number] 0 : 1940 Acct:[id number] Age/Sex: 84 / F ADM Date: 04/25/24 Loc: Room: [address] [place] [address] Type: DIS IN Attending Dr: Javan Gruber [...] studies are available for comparison. Transcribed By: KEATON 04/25/241952 Dictated By: Palmira Lowery MD, [facility] 04/25/24 1614 Signed By: 05/01/24 1218 Normal [facility] Neutrophils [#/volume] in Bl ood by Automated countOrdered By: Lalo Carter on 04-25-2024 Neutrophils (Bld) [#/Vol] 7.1 10*3/uL Normal 1.8-7.7 [facility] Comment on above: Performed By: #### M G, LIPID, A1C WTH eA, BMP, HEPATIC #### [facility] [address] [place] [address] No Panel InformationOrdered By: Javan Gruber on 04-25-2024 Bedside Glucose Comment Glu2: cleaned meter [facility] No Panel InformationOrdered By: Lalo Carter on 04-25-2024 Estimated GFR (CKD-EPI) 44.359 mL/Min [facility] Creatinine Clearance (Chem 32.54 [facility] Nucleated erythrocytes [Pres ence] in Blood by Automated countOrdered By: Lalo Carter on 04-25-2024 Nucleated RBC Auto Ql (Bld) 0.1 /100{WBC} 0-0.5 [facility] Partial Thromboplastin Timeo n 04-25-2024 aPTT Coag (Bld) [Time] 30.0 s Normal 25.1-36.5 [facility] Comment on above: Result Comment: A he matocrit value greater than 55% may lead to inaccurate results in coagulation testing. Patients having hematocrit values >55% require a special collection tube for coagulation studies. Please contact the laboratory at [phone] for redraw instructions. PERFORMED BY: [place] [address] PATHOLOGIST VP OF TECHNOLOGY ALVARO LEWIS M.D. Performed By: #### M G, LIPID, A1C WTH eA, BMP, HEPATIC #### [place] [address] [place] Platelet mean volume [Entiti c volume] in Blood by Automated countOrdered By: Lalo Carter on 04-25-2024 Platelet mean volume (Bld) [Entitic vol] 8.0 fL Normal 6.3-10.7 [facility] Comment on above: Performed By: #### M G, LIPID, A1C WTH eA, BMP, HEPATIC #### [place] [address] [place] Platelets [#/volume] in Bloo d by Automated countOrdered By: Lalo Carter on 04-25-2024 Platelets (Bld) [#/Vol] 273 10*3/uL Normal 150-450 [facility] Comment on above: Performed By: #### M G, LIPID, A1C WTH eA, BMP, HEPATIC #### [place] [address] [place] Potassium [Moles/volume] in Serum or PlasmaOrdered By: Lalo Carter on 04-25-2024 Potassium [Moles/Vol] 5.2 mmol/L High 3.5-5.1 [facility] Comment on above: Order Comment: FASTI NG Y Performed By: #### M G, LIPID, A1C WTH eA, BMP, HEPATIC #### [place] [id number] [place] Protein [Mass/volume] in Ser um or PlasmaOrdered By: Lalo Carter on 04-25-2024 Protein [Mass/Vol] 6.4 g/dL Normal 6.4-8.9 [facility] Comment on above: Order Comment: FASTI NG Y Performed By: #### M G, LIPID, A1C WTH eA, BMP, HEPATIC #### [facility] [address] Prothrombin time (PT)Ordered By: Lalo Carter on 04-25-2024 PT Coag (PPP) [Time] 12.9 s Normal 9.0-12.9 [facility] Comment on above: A hematocrit value g reater than 55% may lead to inaccurate results in coagulation testing. Patients having hematocrit values >55% require a special collection tube for coagulation studies. Please contact the laboratory at [phone] for redraw instructions. Result Comment: A he matocrit value greater than 55% may lead to inaccurate results in coagulation testing. Patients having hematocrit values >55% require a special collection tube for coagulation studies. Please contact the laboratory at [phone] for redraw instructions. Performed By: #### M G, LIPID, A1C WTH eA, BMP, HEPATIC #### [facility] [address] Serum globulin measurement b y calculation (mass/volume)Ordered By: Lalo Carter on 04-25-2024 Globulin (S) [Mass/Vol] 3.3 g/dL [facility] Comment on above: Order Comment: FASTI NG Y Performed By: #### M G, LIPID, A1C WTH eA, BMP, HEPATIC #### [facility] [address] Serum or plasma albumin/glob ulin mass ratioOrdered By: Lalo Carter on 04-25-2024 Albumin/Globulin [Mass ratio] 0.9 {ratio} [facility] Comment on above: Order Comment: FASTI NG Y Performed By: #### M G, LIPID, A1C WTH eA, BMP, HEPATIC #### [facility] [address] [place] [address] Serum or plasma anion gap de terminationOrdered By: Lalo Carter on 04-25-2024 Anion gap [Moles/Vol] 10.9 mmol/L Normal 6.0-15.0 [facility] Comment on above: Order Comment: BETSEY Blackburn Performed By: #### M G, LIPID, A1C WTH eA, BMP, HEPATIC #### [facility] [address] Serum or plasma high density lipoprotein (HDL) cholesterol measurementOrdered By: Lalo Carter on 04-25-2024 Cholesterol in HDL [Mass/Vol] 34 mg/dL Normal 23-92 [facility] Comment on above: HDL CHOL ATP-III CLA SSIFICATION Cardiovascular RiskHDL > or equal to 60 mg/dL LOWHDL < 40 mg/dL HIGH Order Comment: BETSEY Blackburn Result Comment: HDL CHOL ATP-III CLASSIFICATION Cardiovascular Risk HDL > or equal to 60 mg/dL LOW HDL < 40 mg/dL HIGH Performed By: #### M Marlena, LIPID, A1C WT eA, BMP, HEPATIC #### [facility] [address] Serum or plasma non-glucuron idated bilirubin measurement (mass/volume)Ordered By: Lalo Carter on 04-25-2024 Bilirubin.indirect [Mass/Vol] 0.4 mg/dL [facility] Serum or plasma total choles terol/high density lipoprotein (HDL) cholesterol mass ratOrdered By: Lalo Carter on 04-25-2024 Cholesterol.total/Cho lesterol in HDL [Mass ratio] 2.6 {ratio} Normal <5.0 [facility] Comment on above: Order Comment: BETSEY Blackburn Result Comment: PERF ORMED BY: [place] [address] PATHOLOGIST VP OF TECHNOLOGY ALVARO LEWIS M.D. Performed By: #### M G, LIPID, A1C WTH eA, BMP, HEPATIC #### [facility] [address] Sodium [Moles/volume] in Ser um or PlasmaOrdered By: Lalo Carter on 10-18-2024 Sodium [Moles/Vol] 138 mmol/L Normal 136-145 [facility] Comment on above: Order Comment: FASTI NG Y Performed By: #### M G, LIPID, A1C WTH eA, BMP, HEPATIC #### [facility] [address] Triglyceride [Mass/volume] i n Serum or PlasmaOrdered By: Lalo Carter on 04-25-2024 Triglyceride [Mass/Vol] 92 mg/dL 0-149 [facility] Comment on above: TRIG ATP III CLASSIF ICATIONTRIG less than 150 mg/dL NormalTRIG 150-199 mg/dL Borderline highTRIG 200-500 mg/dL High TRIG greater than 500 mg/dL Very highStandard traceable to the Center for Disease Conrtrol and Prevention (CDC) test method. Troponin I High Sensitivityo n 04-25-2024 Troponin I High Sensitivity 18.1 pg/mL High 0.0-15.0 [facility] Comment on above: Result Comment: PERF ORMED BY: [place] [address] PATHOLOGIST VP OF TECHNOLOGY ALVARO LEWIS M.D. Performed By: #### M G, LIPID, A1C WT eA, BMP, HEPATIC #### [facility] [address] Troponin I High Sensitivity 19.5 pg/mL High 0.0-15.0 [facility] Comment on above: Result Comment: PERF ORMED BY: [place] [address] PATHOLOGIST VP OF TECHNOLOGY ALVARO LEWIS M.D. Performed By: #### M G, LIPID, A1C WTH eA, BMP, HEPATIC #### [facility] [address] Troponin I.cardiac [Mass/vol ume] in Serum or Plasma by Detection limit <= 0.01 ng/Ordered By: Lalo Carter on 04-25-2024 Troponin I.cardiac DL <= 0.01 ng/mL [Mass/Vol] 18.1 pg/mL High 0.0-15.0 [facility] Urea nitrogen [Mass/volume] in Serum or PlasmaOrdered By: Lalo Carter on 04-25-2024 Urea nitrogen [Mass/Vol] 31 mg/dL High 01-30 [facility] Comment on above: Order Comment: BETSEY Blackburn Performed By: #### M G, LIPID, A1C WTH eA, BMP, HEPATIC #### [facility] [address] Office Visiton 01-07-2024 Follow-up visit [id number] Jenni Quinones 1940 F Date Provider Department Center 01/07/2024 JOSEFINA STEIN SYMONE [place] Family History Problem Relation Age of Onset Diabetes Father Heart failure Father Other Other Family Status - Relation Status Age at Father Other Level of Service:39183 [place] OFFICE/OUTPATIENT ESTABLISHED MOD MDM 30 MIN [facility] 37on 12-07-2023 37 Have blood drawn [...] taller/more pillows than normal or in recliner. [facility] Office Visiton 12-07-2023 Follow-up visit [id number] Jenni Quinones 1940 F Date Provider Department Center 12/07/2023 FARZANEH PERSAUD Family History Problem Relation Age of Onset Diabetes Father Heart failure Father Other Other Family Status - Relation Status Age at Father Other Level of Service:68246 [place] OFFICE/OUTPATIENT ESTABLISHED MOD MDM 30 MIN [facility] 36on 11-16-2023 36 Regarding echo perfo rmed on 10/23/2023: MD Mariaa Fernandes MA; Farzaneh Arndt NP [place], she sees you soon, echo is consistent with volume overload, I could consider intensification of diuretics before determining the need for FARA Normal [facility] XR COMPARISON OF OUTSIDE HIRAL MSon 08-07-2023 XR COMPARISON OF OUTSIDE FILMS RADRPT There is no result for this study. This is a placeholder for comparison films only. Final result Normal [facility] XR COMPARISON OF OUTSIDE HIRAL MSon 05-29-2023 XR COMPARISON OF OUTSIDE FILMS RADRPT There is no result for this study. This is a placeholder for comparison films only. Final result Normal [facility] FLUORO FOR SURGICAL PROCEDUR ESon 05-09-2023 FLUORO FOR SURGICAL PROCEDURES RADRPT Radiology exam is complete. No Radiologist dictation. Please follow up with ordering provider. Final result Normal [facility] SURGICALon 05-09-2023 SURGICAL [place] [facility] JENNI QUINONES [id number] Assoc. Page 1 of [address] [place] [address] PROC: 05/09/2023 [facility] RECV: 05/11/[address] RPTD: 05/16/2023 [place] [address] LOC: [facility] ACCT: [id number] SEX: F : 1940 AGE: 83 Y [...] negative. The CD138 demonstrates scattered plasma cells. [place] and lambda surface immunoglobulin light chain LALO is performed with adequate controls. The kappa and lambda stains demonstrate a polytypic plasma cell population. Overall, there is no evidence of an atypical infiltrate. Malignancy is not identified. *This test was developed and its performance characteristics determined by [facility]. It has not been cleared or approved by the U.S. Food and Drug Administration. Pursuant to the requirements of CLIA, this laboratory has established and verified the test's accuracy and precision. Additional information about this type of test is available upon request. [id number] [phone] INDY PLATT M.D., F.C.A.P. 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) [M80.08XA] Pre-op diagnosis: T12 Vertebral Body Biopsy Result Comment: [facility] JENNI QUINONES [id number]\X0D0A\Assoc. Page 1 of 1\X0D0A\[address]\X0D0A\[place] [address]\X0D0A\ PROC: 05/09/2023\X0D0A\[facility] RECV: 05/11/2023\X0D0A\[address] RPTD: 05/16/2023\X0D0A\[place] [address]\X0D0A\ LOC: [facility]\X0D0A\ ACCT: [id number] SEX: F\X0D0A\ : 1940 AGE: 83 Y\X0D0A\X0D0A\ PATHOLOGY REPORT\X0D0A\ ATTN: NON-STAFF PHYSICIAN\X0D0A\ REQ: KD HINES\X0D0A\X0D0A\X0D0A\Copies To: JASVIR LEÓN\X0D0A\X0D0A\X0D0A\Clinical Information: AGE-RELATED OSTEOPOROSIS WITH [...] negative. The CD138 demonstrates scattered plasma cells. [place] and\X0D0A\lambda surface immunoglobulin light chain LALO is performed with\X0D0A\adequate controls. The kappa and lambda stains demonstrate a polytypic\X0D0A\plasma cell population. Overall, there is no evidence of an atypical\X0D0A\infiltrate. Malignancy is not identified.\X0D0A\X0D0A\*This test was developed and its performance characteristics determined\X0D0A\by [facility]. It has not been cleared or\X0D0A\approved by the U.S. Food and Drug Administration. Pursuant to the\X0D0A\requirements of CLIA, this laboratory has established and verified the\X0D0A\test's accuracy and precision. Additional information about this type\X0D0A\of test is available upon request.\X0D0A\X0D0A\28537\X0D0A\91797\X0D0A\77267 x 3\X0D0A\48381\X0D0A\85651\X0D0A\X0D0A\X0D0A\X0D0A\ \X0D0A\ INDY PLATT M.D., F.C.A.P.\X0D0A\X0D0A\X0D0A\[facility]/ [facility] Printed on: 05/16/2023\X0D0A\[address]\X0D0A\[place], [place] [address]\X0D0A\Original print date: 05/16/2023 Performed By: #### 1 [id number] #### [facility] See Report DIGOXINon 12-06-2022 DIG <0.2 Critically low 0.9-2.[address] [facility] Comment on above: Performed By: #### B LDCX2 #### [facility] [address] [place], [place] [address] Dr. Lisa Martinez PROF CHEM 8 (BAS METB)on Anion gap [Moles/Vol] 9.6 mmol/L Normal [facility] Comment on above: Performed By: #### T SHRFT4, BMP ####[facility] [address] [place] [address]Dr. Lisa Martinez Calcium [Mass/Vol] 9.0 mg/dL Normal 8.5-10.1 [facility] Comment on above: Performed By: #### T SHRFT4, BMP ####[facility] [address] [place], [place] [address]Dr. Lisa Martinez Chloride [Moles/Vol] 103 mmol/L Normal 98-107 [facility] Comment on above: Performed By: #### T SHRFT4, BMP ####[facility] [address] [place], [place] [address]Dr. Lisa Martinez CO2 [Moles/Vol] 33.4 mmol/L Critically high 21.0-32.0 [facility] Comment on above: Performed By: #### T ALFRED4, BMP ####[facility] [address] [place], [place] [address]Dr. Lisa Martinez Creatinine [Mass/Vol] 1.69 mg/dL Critically high 0.55-1.02 [facility] Comment on above: Performed By: #### T ALFRED4, BMP ####[facility] [address] [place], [place] [address]Dr. Lisa Martinez EGFR-AF GUAMANIAN 35 mL/min/1.73m2 Critically low >=60 [facility] Comment on above: Performed By: #### T ALFRED4, BMP ####[facility] [address] [place], [place] [address]Dr. Lisa Martinez EGFR-NON AF GUAMANIAN 29 mL/min/1.73m2 Critically low >=60 [facility] Comment on above: Performed By: #### T ALFRED4, BMP ####[facility] [address] [place], [place] [address]Dr. Lisa Martinez Glucose [Mass/Vol] 72 mg/dL Critically low 74-106 [facility] Comment on above: Performed By: #### T SUPRIYAFT4, BMP ####[facility] [address] [place], [place] [address]Dr. Lisa Martinez Potassium [Moles/Vol] 4.0 mmol/L Normal 3.5-5.1 [facility] Comment on above: Performed By: #### T ALFRED4, BMP ####[facility] [address] [place] [address]Dr. Lisa Martinez Sodium [Moles/Vol] 142 mmol/L Normal 136-145 [facility] Comment on above: Performed By: #### T ALFRED4, BMP ####[facility] [address] [place] [address]Dr. Lisa Martinez Urea nitrogen [Mass/Vol] 42.0 mg/dL Critically high 7.0-18.0 [facility] Comment on above: Performed By: #### T ALFRED4, BMP ####[facility] [address] [place] [address]Dr. Lisa Martinez Urea nitrogen/Creatinine [Mass ratio] 24.9 mg/mg Normal [facility] Comment on above: Performed By: #### T KELLEY, BMP ####[facility] [address] [place] [address]Dr. Lisa Martinez TSH W/ REFLEX TO FT4on 12-06 TSH 2.427 uIU/mL Normal 0.358-3.740 [facility] Comment on above: Performed By: #### T ALFRED4, BMP ####[facility] [address] [place] [address]Dr. Lisa Martinez BNPon 11-15-2022 Natriuretic peptide B (Bld) [Mass/Vol] 6134.0 pg/mL Critically high <=1,800.0 [facility] Comment on above: Performed By: #### B SENIOR CLINICAL PROJECT MANAGER, CMP, MG ####[facility] [address] [place] [address]DrIngrid Martinez CBC AUTO DIFFon 11-15-2022 BASO # 0.0 103/ul Normal 0.0-0.1 [facility] Comment on above: Performed By: #### K U #### [facility] [address] [place] [address] [address] Yilan Martinez Basophils/100 WBC (Bld) 0.6 % Normal 0.2-2.0 [facility] Comment on above: Performed By: #### K U #### [facility] [address] [place] [address] Dr. Lisa Martinez EO # 0.2 103/ul Normal 0.0-0.7 [facility] Comment on above: Performed By: #### K U #### [facility] [address] [place] [address] Dr. Lisa Martinez Eosinophils/100 WBC (Bld) 2.9 % Normal 0.9-7.0 [facility] Comment on above: Performed By: #### K U #### [facility] [address] [place] [address] Dr. Lisa Martinez Erythrocyte distribution width (RBC) [Ratio] 14.9 % Normal 11.0-15.0 [facility] Comment on above: Performed By: #### K U #### [facility] [address] [place] [address] Dr. Lisa Martinez Hematocrit (Bld) [Volume fraction] 31.9 % Critically low 36.0-48.0 [facility] Comment on above: Performed By: #### K U #### [facility] [address] [place] [address] Dr. Lisa Martinez Hemoglobin (Bld) [Mass/Vol] 9.8 g/dL Critically low 12.0-16.0 [facility] Comment on above: Performed By: #### K U #### [facility] [address] [place] [address] Dr. Lisa Martinez IG # 0.02 10e3/ul Normal 0.00-0.03 [facility] Comment on above: Performed By: #### K U #### [facility] [address] [place] [address] Dr. Lisa Martinez IG % 0.3 % Normal 0.0-0.5 [facility] Comment on above: Performed By: #### K U #### [facility] [address] [place] [address] Dr. Lisa Martinez LYMPH # 0.7 103/ul Critically low 1.2-3.8 [facility] Comment on above: Performed By: #### K U #### [facility] [address] [place] [address] Dr. Lisa Martinez Lymphocytes/100 WBC (Bld) 10.9 % Critically low 20.5-60.0 [facility] Comment on above: Performed By: #### K U #### [facility] [address] [place] [address] Dr. Lisa Martinez MANUAL DIFF REQ NO Normal [facility] Comment on above: Performed By: #### K U #### [facility] [address] [place] [address] Dr. Lisa Martinez MCH (RBC) [Entitic mass] 29.1 pg Normal 26.7-34.0 [facility] Comment on above: Performed By: #### K U #### [facility] [address] [place] [address] Dr. Lisa Martinez MCHC (RBC) [Mass/Vol] 30.7 g/dL Normal 29.9-35.2 [facility] Comment on above: Performed By: #### K U #### [facility] [address] [place] [address] Dr. Lisa Martinez MCV (RBC) [Entitic vol] 94.7 fL Normal 81.0-99.0 [facility] Comment on above: Performed By: #### K U #### [facility] [address] [place] [address] Dr. Lisa Martinez MONO # 0.8 103/ul Normal 0.3-0.8 [facility] Comment on above: Performed By: #### K U #### [facility] [address] [place] [address] Dr. Lisa Martinez Monocytes/100 WBC (Bld) 12.2 % Critically high 1.7-12.0 [facility] Comment on above: Performed By: #### K U #### [facility] [address] [place] [address] Dr. Lisa Martinez NEUT # 4.6 103/ul Normal 1.4-6.5 [facility] Comment on above: Performed By: #### K U #### [facility] [address] [place] [address] Dr. Lisa Martinez Neutrophils/100 WBC (Bld) 73.1 % Normal 43.0-75.0 [facility] Comment on above: Performed By: #### K U #### [facility] [address] [place] [address] Dr. Lisa Martinez Platelet mean volume (Bld) [Entitic vol] 10.2 fL Normal 9.5-13.5 [facility] Comment on above: Performed By: #### K U #### [facility] [address] [place] [address] Dr. Lisa Martinez PLT 186 103/ul Normal 150-450 [facility] Comment on above: Performed By: #### K U #### [facility] [address] [place] [address] Dr. Lisa Martinez RBC 3.37 106/ul Critically low 4.20-5.40 [facility] Comment on above: Performed By: #### K U #### [facility] [address] [place] [address] Dr. Lisa Martinez WBC 6.3 103/ul Normal 4.0-11.0 [facility] Comment on above: Performed By: #### K U #### [facility] [address] [place] [address] Dr. Lisa Martinez CHLORIDE URINE RANDOMon 11-06 Chloride, Urine 126 mmol/L Normal Not Estab. [facility] Comment on above: Performed By: #### B LDCX2 #### [facility] [address] [place] [address] Dr. Lisa Martinez CULTURE URINEon 11-15-2022 CULTURE [...] F Trimethoprim/Sulfamethoxa zole <=20 S F Normal [facility] Comment on above: Performed By: #### U RCX #### [facility] [address] [address] [address] Lisa Martinez DIGOXINon 11-15-2022 DIG 0.3 ng/mL Critically low 0.9-2.0 [facility] Comment on above: Performed By: #### B SENIOR CLINICAL PROJECT MANAGER, BMP #### [facility] [address] [place] [address] Dr. Lisa Martinez MAGNESIUMon 11-15-2022 Magnesium [Mass/Vol] 2.2 mg/dL Normal 1.8-2.4 [facility] Comment on above: Performed By: #### B SENIOR CLINICAL PROJECT MANAGER, CMP, MG ####[facility] [address] [address]DrIngrid Martinez POINT OF CARE GLUCOSEon 11-06 Glucose [Mass/Vol] 164 mg/dL Critically high 74-106 [facility] Comment on above: Performed By: #### C BC #### [facility] [address] [address] [address] Lisa Martinez PROF 14(COMP METB)on 023 Albumin [Mass/Vol] 3.3 g/dL Critically low 3.4-5.0 [facility] Comment on above: Performed By: #### B SENIOR CLINICAL PROJECT MANAGER, CMP, MG ####[facility] [address] [address]DrIngrid Martinez Albumin/Globulin [Mass ratio] 0.7 {ratio} Normal [facility] Comment on above: Performed By: #### B SENIOR CLINICAL PROJECT MANAGER, CMP, MG ####[facility] [address] [address]DrIngrid Martinez ALP [Catalytic activity/Vol] 75 U/L Normal 46-116 [facility] Comment on above: Performed By: #### B SENIOR CLINICAL PROJECT MANAGER, CMP, MG ####[facility] [address] [address]Dr. Lisa Martinez ALT [Catalytic activity/Vol] 14 U/L Normal 14-59 [facility] Comment on above: Performed By: #### B SENIOR CLINICAL PROJECT MANAGER, CMP, MG ####[facility] [address] [address]Dr. iLsa Martinez Anion gap [Moles/Vol] 11.1 mmol/L Normal [facility] Comment on above: Performed By: #### B SENIOR CLINICAL PROJECT MANAGER, CMP, MG ####[facility] [address] [address]Dr. Lisa Martinez AST [Catalytic activity/Vol] 14 U/L Critically low 15-37 [facility] Comment on above: Performed By: #### B SENIOR CLINICAL PROJECT MANAGER, CMP, MG ####[facility] [address] [place], [place] [address]Dr. Lisa Martinez Bilirubin [Mass/Vol] 0.9 mg/dL Normal 0.2-1.0 [facility] Comment on above: Performed By: #### B SENIOR CLINICAL PROJECT MANAGER, CMP, MG ####[facility] [address] [address]Dr. Lisa Martinez Calcium [Mass/Vol] 9.1 mg/dL Normal 8.5-10.1 [facility] Comment on above: Performed By: #### B SENIOR CLINICAL PROJECT MANAGER, CMP, MG ####[facility] [address] [address]Dr. Lisa Martinez Chloride [Moles/Vol] 100 mmol/L Normal 98-107 [facility] Comment on above: Performed By: #### B SENIOR CLINICAL PROJECT MANAGER, CMP, MG ####[facility] [address] [address]Dr. Lisa Martinez CO2 [Moles/Vol] 32.6 mmol/L Critically high 21.0-32.0 [facility] Comment on above: Performed By: #### B SENIOR CLINICAL PROJECT MANAGER, CMP, MG ####[facility] [address] [id number]. Lisa Martinez Creatinine [Mass/Vol] 2.65 mg/dL Critically high 0.55-1.02 [facility] Comment on above: Performed By: #### B SENIOR CLINICAL PROJECT MANAGER, CMP, MG ####[facility] [address] [id number]. Lisa Martinez EGFR-AF GUAMANIAN 21 mL/min/1.73m2 Critically low >=60 [facility] Comment on above: Performed By: #### B SENIOR CLINICAL PROJECT MANAGER, CMP, MG ####[facility] [address] [address]Dr. Lisa Juan EGFR-NON AF GUAMANIAN 17 mL/min/1.73m2 Critically low >=60 [facility] Comment on above: Performed By: #### B SENIOR CLINICAL PROJECT MANAGER, CMP, MG ####[facility] [address] [address]Dr. Lisa Martinez Globulin (S) [Mass/Vol] 4.7 g/dL Normal [facility] Comment on above: Performed By: #### B SENIOR CLINICAL PROJECT MANAGER, CMP, MG ####[facility] [address] [address]Dr. Lisa Martinez Glucose [Mass/Vol] 131 mg/dL Critically high 74-106 [facility] Comment on above: Performed By: #### B SENIOR CLINICAL PROJECT MANAGER, CMP, MG ####[facility] [address] [address]Dr. Lisa Martinez Potassium [Moles/Vol] 3.7 mmol/L Normal 3.5-5.1 [facility] Comment on above: Performed By: #### B SENIOR CLINICAL PROJECT MANAGER, CMP, MG ####[facility] [address] [address]Dr. Lisa Martinez Protein [Mass/Vol] 8.0 g/dL Normal 6.4-8.2 [facility] Comment on above: Performed By: #### B SENIOR CLINICAL PROJECT MANAGER, CMP, MG ####[facility] [address] [address]Dr. Lisa Martinez Sodium [Moles/Vol] 140 mmol/L Normal 136-145 [facility] Comment on above: Performed By: #### B SENIOR CLINICAL PROJECT MANAGER, CMP, MG ####[facility] [address] [address]Dr. Lisa Martinez Urea nitrogen [Mass/Vol] 66.0 mg/dL Critically high 7.0-18.0 [facility] Comment on above: Performed By: #### B SENIOR CLINICAL PROJECT MANAGER, CMP, MG ####[facility] [address] [address]Dr. Lisa Martinez Urea nitrogen/Creatinine [Mass ratio] 24.9 mg/mg Normal [facility] Comment on above: Performed By: #### B SENIOR CLINICAL PROJECT MANAGER, CMP, MG ####[facility] [address] [place], [place] [address]Dr. Lisa Martinez UREA NITROGEN, RANDOM URon 0 11-15-2022 Urea Nitrogen, Urine 165 mg/dL Normal Not Estab. [facility] Comment on above: Performed By: #### U NR ####[facility] [address] [place], [place] [address]Dr. Lisa Martinez BNPon 11-14-2022 Natriuretic peptide B (Bld) [Mass/Vol] 8525.0 pg/mL Critically high <=1,800.0 [facility] Comment on above: Performed By: #### B SENIOR CLINICAL PROJECT MANAGER ####[facility] [address] [place], [place] [address]Dr. Lisa Martinez CBC AUTO DIFFon 11-14-2022 BASO # 0.0 103/ul Normal 0.0-0.1 [facility] Comment on above: Performed By: #### C VDTBH #### [facility] [address] [place] [address] Dr. Lisa Martinez Basophils/100 WBC (Bld) 0.5 % Normal 0.2-2.0 [facility] Comment on above: Performed By: #### C VDTBH #### [facility] [address] [place] [address] Dr. Lisa Martinez EO # 0.2 103/ul Normal 0.0-0.7 [facility] Comment on above: Performed By: #### C VDTBH #### [facility] [address] [place] [address] Dr. Lisa Martinez Eosinophils/100 WBC (Bld) 3.4 % Normal 0.9-7.0 [facility] Comment on above: Performed By: #### C VDTBH #### [facility] [address] [place] [address] Dr. Lisa Martinez Erythrocyte distribution width (RBC) [Ratio] 14.9 % Normal 11.0-15.0 [facility] Comment on above: Performed By: #### C VDTBH #### [facility] [address] [place] [address] Dr. Lisa Martinez Hematocrit (Bld) [Volume fraction] 31.3 % Critically low 36.0-48.0 [facility] Comment on above: Performed By: #### C VDTBH #### [facility] [address] [place] [address] Dr. Lisa Martinez Hemoglobin (Bld) [Mass/Vol] 9.4 g/dL Critically low 12.0-16.0 [facility] Comment on above: Performed By: #### C VDTBH #### [facility] [address] [place] [address] Dr. Lisa Martinez IG # 0.01 10e3/ul Normal 0.00-0.03 [facility] Comment on above: Performed By: #### C VDTBH #### [facility] [address] [place] [address] Dr. Lisa Martinez IG % 0.2 % Normal 0.0-0.5 [facility] Comment on above: Performed By: #### C VDTBH #### [facility] [address] [place] [address] Dr. Lisa Martinez LYMPH # 0.9 103/ul Critically low 1.2-3.[address] [facility] Comment on above: Performed By: #### C VDTBH #### [facility] [address] [place] [address] Dr. Lisa Martinez Lymphocytes/100 WBC (Bld) 15.2 % Critically low 20.5-60.0 [facility] Comment on above: Performed By: #### C VDTBH #### [facility] [address] [place] [address] Dr. Lisa Martinez MANUAL DIFF REQ NO Normal [facility] Comment on above: Performed By: #### C VDTBH #### [facility] [address] [place] [address] Dr. Lisa Martinez MCH (RBC) [Entitic mass] 29.0 pg Normal 26.7-34.0 [facility] Comment on above: Performed By: #### C VDTBH #### [facility] [address] [place] [address] Dr. Lisa Martinez MCHC (RBC) [Mass/Vol] 30.0 g/dL Normal 29.9-35.2 [facility] Comment on above: Performed By: #### C VDTBH #### [facility] [address] [place] [address] Dr. Lisa Martinez MCV (RBC) [Entitic vol] 96.6 fL Normal 81.0-99.0 [facility] Comment on above: Performed By: #### C VDTBH #### [facility] [address] [place] [address] Dr. Lisa Martinez MONO # 0.6 103/ul Normal 0.3-0.8 [facility] Comment on above: Performed By: #### C VDTBH #### [facility] [address] [place] [address] Dr. Lisa Martinez Monocytes/100 WBC (Bld) 10.2 % Normal 1.7-12.0 [facility] Comment on above: Performed By: #### C VDTBH #### [facility] [address] [place] [address] Dr. Lisa Martinez NEUT # 4.0 103/ul Normal 1.4-6.5 [facility] Comment on above: Performed By: #### C VDTBH #### [facility] [address] [place] [address] Dr. Lisa Martinez Neutrophils/100 WBC (Bld) 70.5 % Normal 43.0-75.0 [facility] Comment on above: Performed By: #### C VDTBH #### [facility] [address] [place] [address] Dr. Lisa Martinez Platelet mean volume (Bld) [Entitic vol] 10.3 fL Normal 9.5-13.5 [facility] Comment on above: Performed By: #### C VDTBH #### [facility] [address] [place] [address] Dr. Lisa Martinez PLT 192 103/ul Normal 150-450 [facility] Comment on above: Performed By: #### C VDTBH #### [facility] [address] [place] [address] Dr. Lisa Martinez RBC 3.24 106/ul Critically low 4.20-5.40 [facility] Comment on above: Performed By: #### C VDTBH #### [facility] [address] [place] [address] Dr. Lisa Martinez WBC 5.7 103/ul Normal 4.0-11.0 [facility] Comment on above: Performed By: #### C VDTBH #### [facility] [address] [place] [address] Dr. Lisa Martinez D-DIMERon 11-14-2022 D-DIMER 0.82 mg/L FEU Critically high <=0.59 [facility] Comment on above: Performed By: #### B SENIOR CLINICAL PROJECT MANAGER, BMP #### [facility] [address] [place] [address] Dr. Lisa Martinez D-DIMER COMMENTS SEE BELOW Normal [facility] Comment on above: Result Comment: Incr [...] and generalized hospitalization. Performed By: #### B SENIOR CLINICAL PROJECT MANAGER, BMP #### [facility] [address] [address] [address] Lisa Martinez ECHO LIMITED STUDYon 023 ECHO LIMITED STUDY Patient: URSZULA QUINONES Exam Date: 11/14/2022 : 1940 Gender:F Ordering : DR ROBERTO ZIMMERMAN . Admission #: [id number] Family : Order #: [id number] CLICK HERE TO VIEW EXAM ECHOCARDIOGRAM REPORT [...] Marley M.D. on 11/14/2022 at 16:43 Normal [facility] MAGNESIUMon 11-14-2022 Magnesium [Mass/Vol] 2.3 mg/dL Normal 1.8-2.4 [facility] Comment on above: Performed By: #### U RCX #### [facility] [address] [address] [address] Lisa Martinez NM LUNG VENT_PERFon 11-15-19 [...] SADIE GARCIA Date: 2022-11-14 19:11 Normal [facility] OCC BLD IMMUNO SCREENon OCCULT BLOOD Negative Normal NEGATIVE [facility] Comment on above: Performed By: #### B LDCX2 #### [facility] [address] [address] [address] Lisa Martinez POINT OF CARE GLUCOSEon Glucose [Mass/Vol] 155 mg/dL Critically high 74-106 [facility] Comment on above: Performed By: #### P OCGLUC ####[facility] [address] [address]Dr. Lisa Martinez Glucose [Mass/Vol] 148 mg/dL Critically high 74-106 [facility] Comment on above: Performed By: #### B LDCX2 #### [facility] [address] [address] [address] Lisa Martinez Glucose [Mass/Vol] 76 mg/dL Normal 74-106 [facility] Comment on above: Performed By: #### B LDCX2 #### [facility] [address] [address] [address] Lisa Martinez POTASSIUM URINEon 11-14-2022 UR POTASSIUM 21.3 mmol/L Normal [facility] Comment on above: Performed By: #### K U #### [facility] [address] [place] [address] Dr. Lisa Martinez PROF 14(COMP METB)on 023 Albumin [Mass/Vol] 3.3 g/dL Critically low 3.4-5.0 [facility] Comment on above: Performed By: #### U RCX #### [facility] [address] [place] [address] Dr. Lisa Martinez Albumin/Globulin [Mass ratio] 0.7 {ratio} Normal [facility] Comment on above: Performed By: #### U RCX #### [facility] [address] [place] [address] Dr. Lisa Martinez ALP [Catalytic activity/Vol] 72 U/L Normal 46-116 [facility] Comment on above: Performed By: #### U RCX #### [facility] [address] [place] [address] Dr. Lisa Martinez ALT [Catalytic activity/Vol] 16 U/L Normal 14-59 [facility] Comment on above: Performed By: #### U RCX #### [facility] [address] [place] [address] Dr. Lisa Martinez Anion gap [Moles/Vol] 13.0 mmol/L Normal [facility] Comment on above: Performed By: #### U RCX #### [facility] [address] [place] [address] Dr. Lisa Martinez AST [Catalytic activity/Vol] 13 U/L Critically low 15-37 [facility] Comment on above: Performed By: #### U RCX #### [facility] [address] [address] [address] Lisa Martinez Bilirubin [Mass/Vol] 0.8 mg/dL Normal 0.2-1.0 [facility] Comment on above: Performed By: #### U RCX #### [facility] [address] [address] [address] Lisa Martinez Calcium [Mass/Vol] 9.0 mg/dL Normal 8.5-10.1 [facility] Comment on above: Performed By: #### U RCX #### [facility] [address] [place] [address] Dr. Lisa Martinez Chloride [Moles/Vol] 100 mmol/L Normal 98-107 [facility] Comment on above: Performed By: #### U RCX #### [facility] [address] [address] [address] Lisa Martinez CO2 [Moles/Vol] 30.0 mmol/L Normal 21.0-32.0 [facility] Comment on above: Performed By: #### U RCX #### [facility] [address] [place] [address] Dr. Lisa Martinez Creatinine [Mass/Vol] 2.79 mg/dL Critically high 0.55-1.02 [facility] Comment on above: Performed By: #### U RCX #### [facility] [address] [place] [address] Dr. Lisa Martinez EGFR-AF GUAMANIAN 20 mL/min/1.73m2 Critically low >=60 [facility] Comment on above: Performed By: #### U RCX #### [facility] [address] [address] [address] Lisa Martinez EGFR-NON AF GUAMANIAN 16 mL/min/1.73m2 Critically low >=60 [facility] Comment on above: Performed By: #### U RCX #### [facility] [address] [place] [address] Dr. Lisa Martinez Globulin (S) [Mass/Vol] 4.6 g/dL Normal [facility] Comment on above: Performed By: #### U RCX #### [facility] [address] [address] [address] Lisa Martinez Glucose [Mass/Vol] 153 mg/dL Critically high 74-106 [facility] Comment on above: Performed By: #### U RCX #### [facility] [address] [address] [address] Lisa Martinez Potassium [Moles/Vol] 4.0 mmol/L Normal 3.5-5.1 [facility] Comment on above: Performed By: #### U RCX #### [facility] [address] [place] [address] Dr. Lisa Martinez Protein [Mass/Vol] 7.9 g/dL Normal 6.4-8.2 [facility] Comment on above: Performed By: #### U RCX #### [facility] [address] [place] [address] Dr. Lisa Martinez Sodium [Moles/Vol] 139 mmol/L Normal 136-145 [facility] Comment on above: Performed By: #### U RCX #### [facility] [address] [place] [address] Dr. Lisa Martinez Urea nitrogen [Mass/Vol] 67.0 mg/dL Critically high 7.0-18.0 [facility] Comment on above: Performed By: #### U RCX #### [facility] [address] [place] [address] Dr. Lisa Martinez Urea nitrogen/Creatinine [Mass ratio] 24.0 mg/mg Normal [facility] Comment on above: Performed By: #### U RCX #### [facility] [address] [place] [address] Dr. Lisa Martinez SODIUM RANDOM URINEon 2022 Sodium (U) [Moles/Vol] 122 mmol/L Critically high 30-90 [facility] Comment on above: Performed By: #### B SENIOR CLINICAL PROJECT MANAGER, BMP #### [facility] [address] [address] [address] Lisa Martinez T3, TOTAL (TRIIODOTHYRONINE) on 11-14-2022 T3, TOTAL 84 ng/dL Normal 71-180 [facility] Comment on above: Performed By: #### U RCX #### [facility] [address] [address] [address] Lisa Martinez BNPon 11-13-2022 Natriuretic peptide B (Bld) [Mass/Vol] 59935.0 pg/mL Critically high <=1,800.0 [facility] Comment on above: Performed By: #### B MP, HSTROPN, BNP ####[facility] [address] [address]Dr. Lisa Martinez CARDIAC DONY 3-6on 3 CK [Catalytic activity/Vol] 60 U/L Normal 26-192 [facility] Comment on above: Performed By: #### C MREP ####[facility] [address] [address]Dr. Lisa Martinez CK.MB [Mass/Vol] 0.96 ng/mL Normal <=3.60 [facility] Comment on above: Performed By: #### C MREP ####[facility] [address] [address]Dr. Lisa Martinez HSTROP 16.3 pg/mL Normal 4.0-51.3 [facility] Comment on above: Result Comment: CUT- OFF POINTS HAVE BEEN ESTABLISHED BASED ON THE FOURTH UNIVERSAL DEFINITIONS OF MYOCARDIAL INFARCTION. THE UPPER REFERENCE LIMIT (URL) OF TROPONIN, DEFINED THE 99TH PERCENTILE OF cTnI DISTRIBUTION IN A REFERENCE POPULATION, HAS BEEN CONFIRMED THE DECISION THRESHOLD FOR HI DIAGNOSIS. Performed By: #### C MREP ####[facility] [address] [address]Dr. Lisa Martinez CK [Catalytic activity/Vol] 60 U/L Normal 26-192 [facility] Comment on above: Performed By: #### C BC #### [facility] [address] [address] [address] Lisa Martinez CK.MB [Mass/Vol] 0.94 ng/mL Normal <=3.60 [facility] Comment on above: Performed By: #### C BC #### [facility] [address] [place] [address] Dr. Lisa Martinez HSTROP 15.1 pg/mL Normal 4.0-51.3 [facility] Comment on above: Result Comment: CUT- OFF POINTS HAVE BEEN ESTABLISHED BASED ON THE FOURTH UNIVERSAL DEFINITIONS OF MYOCARDIAL INFARCTION. THE UPPER REFERENCE LIMIT (URL) OF TROPONIN, DEFINED THE 99TH PERCENTILE OF cTnI DISTRIBUTION IN A REFERENCE POPULATION, HAS BEEN CONFIRMED THE DECISION THRESHOLD FOR HI DIAGNOSIS. Performed By: #### C BC #### [facility] [address] [place] [address] Dr. Lisa Martinez CBC AUTO DIFFon 11-13-2022 BASO # 0.1 103/ul Normal 0.0-0.1 [facility] Comment on above: Performed By: #### C BC #### [facility] [address] [place] [address] Dr. Lisa Martinez Basophils/100 WBC (Bld) 0.6 % Normal 0.2-2.0 [facility] Comment on above: Performed By: #### C BC #### [facility] [address] [place] [address] Dr. Lisa Martinez EO # 0.2 103/ul Normal 0.0-0.7 [facility] Comment on above: Performed By: #### C BC #### [facility] [address] [place] [address] Dr. Lisa Martinez Eosinophils/100 WBC (Bld) 1.8 % Normal 0.9-7.0 [facility] Comment on above: Performed By: #### C BC #### [facility] [address] [place] [address] Dr. Lisa Martinez Erythrocyte distribution width (RBC) [Ratio] 15.0 % Normal 11.0-15.0 [facility] Comment on above: Performed By: #### C BC #### [facility] [address] [place] [address] Dr. Lisa Martinez Hematocrit (Bld) [Volume fraction] 32.9 % Critically low 36.0-48.0 [facility] Comment on above: Performed By: #### C BC #### [facility] [address] [place] [address] Dr. Lisa Martinez Hemoglobin (Bld) [Mass/Vol] 9.8 g/dL Critically low 12.0-16.0 [facility] Comment on above: Performed By: #### C BC #### [facility] [address] [place] [address] Dr. Lisa Martinez IG # 0.02 10e3/ul Normal 0.00-0.03 [facility] Comment on above: Performed By: #### C BC #### [facility] [address] [place] [address] Dr. Lisa Martinez IG % 0.2 % Normal 0.0-0.5 [facility] Comment on above: Performed By: #### C BC #### [facility] [address] [place] [address] Dr. Lisa Martinez LYMPH # 0.7 103/ul Critically low 1.2-3.8 [facility] Comment on above: Performed By: #### C BC #### [facility] [address] [place] [address] Dr. Lisa Martinez Lymphocytes/100 WBC (Bld) 7.8 % Critically low 20.5-60.0 [facility] Comment on above: Performed By: #### C BC #### [facility] [address] [place] [address] Dr. Lsia Martinez MANUAL DIFF REQ NO Normal [facility] Comment on above: Performed By: #### C BC #### [facility] [address] [place] [address] Dr. Lisa Martinez MCH (RBC) [Entitic mass] 29.4 pg Normal 26.7-34.0 [facility] Comment on above: Performed By: #### C BC #### [facility] [address] [place] [address] Dr. Lisa Martinez MCHC (RBC) [Mass/Vol] 29.8 g/dL Critically low 29.9-35.2 [facility] Comment on above: Performed By: #### C BC #### [facility] [address] [address] [address] Lisa Martinez MCV (RBC) [Entitic vol] 98.8 fL Normal 81.0-99.0 [facility] Comment on above: Performed By: #### C BC #### [facility] [address] [address] [address] Lisa Martinez MONO # 0.7 103/ul Normal 0.3-0.8 [facility] Comment on above: Performed By: #### C BC #### [facility] [address] [address] [address] Lisa Martinez Monocytes/100 WBC (Bld) 7.6 % Normal 1.7-12.0 [facility] Comment on above: Performed By: #### C BC #### [facility] [address] [address] [address] Lisa Martinez NEUT # 7.0 103/ul Critically high 1.4-6.5 [facility] Comment on above: Performed By: #### C BC #### [facility] [address] [address] [address] Lisa Martinez Neutrophils/100 WBC (Bld) 82.0 % Critically high 43.0-75.0 [facility] Comment on above: Performed By: #### C BC #### [facility] [address] [address] [address] Lisa Martinez Platelet mean volume (Bld) [Entitic vol] 10.6 fL Normal 9.5-13.5 [facility] Comment on above: Performed By: #### C BC #### [facility] [address] [address] [address] Lisa Martinez PLT 209 103/ul Normal 150-450 [facility] Comment on above: Performed By: #### C BC #### [facility] [address] [address] [address] Lisa Martinez RBC 3.33 106/ul Critically low 4.20-5.40 [facility] Comment on above: Performed By: #### C BC #### [facility] [address] [address] [address] Lisa Martinez WBC 8.6 103/ul Normal 4.0-11.0 [facility] Comment on above: Performed By: #### C BC #### [facility] [address] [address] [address] Lisa Martinez LACTATE/LACTIC ACIDon 2022 Lactate [Moles/Vol] 3.4 mmol/L Critically high 0.4-2.0 [facility] Comment on above: Performed By: #### L ACT ####[facility] [address] [address]Dr. Lisa Martinez MAGNESIUMon 11-13-2022 Magnesium [Mass/Vol] 2.6 mg/dL Critically high 1.8-2.4 [facility] Comment on above: Performed By: #### B SENIOR CLINICAL PROJECT MANAGER, BMP #### [facility] [address] [place] [address] Dr. Lisa Martinez PROF CHEM 8 (BAS METB)on Anion gap [Moles/Vol] 15.7 mmol/L Normal [facility] Comment on above: Performed By: #### C BC #### [facility] [address] [place] [address] Dr. Lisa Martinez Calcium [Mass/Vol] 9.1 mg/dL Normal 8.5-10.1 [facility] Comment on above: Performed By: #### C BC #### [facility] [address] [place] [address] Dr. Lisa Martinez Chloride [Moles/Vol] 103 mmol/L Normal 98-107 [facility] Comment on above: Performed By: #### C BC #### [facility] [address] [place] [address] Dr. Lisa Martinez CO2 [Moles/Vol] 27.2 mmol/L Normal 21.0-32.0 [facility] Comment on above: Performed By: #### C BC #### [facility] [address] [place] [address] Dr. Lisa Martinez Creatinine [Mass/Vol] 2.91 mg/dL Critically high 0.55-1.02 [facility] Comment on above: Performed By: #### C BC #### [facility] [address] [address] [address] Lisa Martinez EGFR-AF GUAMANIAN 19 mL/min/1.73m2 Critically low >=60 [facility] Comment on above: Performed By: #### C BC #### [facility] [address] [address] [address] Lisa Martinez EGFR-NON AF GUAMANIAN 15 mL/min/1.73m2 Critically low >=60 [facility] Comment on above: Performed By: #### C BC #### [facility] [address] [address] [address] Lisa Martinez Glucose [Mass/Vol] 172 mg/dL Critically high 74-106 [facility] Comment on above: Performed By: #### C BC #### [facility] [address] [address] [address] Lisa Martinez Potassium [Moles/Vol] 4.9 mmol/L Normal 3.5-5.1 [facility] Comment on above: Performed By: #### C BC #### [facility] [address] [address] [address] Lisa Martinez Sodium [Moles/Vol] 141 mmol/L Normal 136-145 [facility] Comment on above: Performed By: #### C BC #### [facility] [address] [address] [address] Lisa Martinez Urea nitrogen [Mass/Vol] 64.0 mg/dL Critically high 7.0-18.0 [facility] Comment on above: Performed By: #### C BC #### [facility] [address] [address] [address] Lisa Martinez Urea nitrogen/Creatinine [Mass ratio] 22.0 mg/mg Normal [facility] Comment on above: Performed By: #### C BC #### [facility] [address] [address] [address] Lisa Martinez Anion gap [Moles/Vol] 17.4 mmol/L Normal [facility] Comment on above: Performed By: #### B MP, HSTROPN, BNP ####[facility] [address] [address]Dr. Lisa Martinez Calcium [Mass/Vol] 9.1 mg/dL Normal 8.5-10.1 [facility] Comment on above: Performed By: #### B MP, HSTROPN, BNP ####[facility] [address] [address]Dr. Lisa Martinez Chloride [Moles/Vol] 104 mmol/L Normal 98-107 [facility] Comment on above: Performed By: #### B MP, HSTROPN, BNP ####[facility] [address] [place], [place] [address]Dr. Lisa Martinez CO2 [Moles/Vol] 26.9 mmol/L Normal 21.0-32.0 [facility] Comment on above: Performed By: #### B MP, HSTROPN, BNP ####[facility] [address] [place], [place] [address]Dr. Lisa Martinez Creatinine [Mass/Vol] 3.12 mg/dL Critically high 0.55-1.02 [facility] Comment on above: Performed By: #### B MP, HSTROPN, BNP ####[facility] [address] [address]Dr. Lisa Martinez EGFR-AF GUAMANIAN 17 mL/min/1.73m2 Critically low >=60 [facility] Comment on above: Performed By: #### B MP, HSTROPN, BNP ####[facility] [address] [address]Dr. Lisa Martinez EGFR-NON AF GUAMANIAN 14 mL/min/1.73m2 Critically low >=60 [facility] Comment on above: Performed By: #### B MP, HSTROPN, BNP ####[facility] [address] [address]Dr. Lisa Martinez Glucose [Mass/Vol] 131 mg/dL Critically high 74-106 [facility] Comment on above: Performed By: #### B MP, HSTROPN, BNP ####[facility] [address] [address]Dr. Lisa Martinez Potassium [Moles/Vol] 5.3 mmol/L Critically high 3.5-5.1 [facility] Comment on above: Performed By: #### B MP, HSTROPN, BNP ####[facility] [address] [address]Dr. Lisa Martinez Sodium [Moles/Vol] 143 mmol/L Normal 136-145 [facility] Comment on above: Performed By: #### B MP, HSTROPN, BNP ####[facility] [address] [address]Dr. Lisa Martinez Urea nitrogen [Mass/Vol] 59.0 mg/dL Critically high 7.0-18.0 [facility] Comment on above: Performed By: #### B MP, HSTROPN, BNP ####[facility] [address] [address]Dr. Lisa Martinez Urea nitrogen/Creatinine [Mass ratio] 18.9 mg/mg Normal [facility] Comment on above: Performed By: #### B MP, HSTROPN, BNP ####[facility] [address] [address]Dr. Lisa Martinez SYMPTOMATIC COVID-19 ANTIGEN on 11-13-2022 EUA Statement SEE BELOW Normal [facility] Comment on above: Result Comment: This [...] VDTBH #### [facility] [address] [address] [address] Lisa Martinez SARS-CoV-2 (COVID-19) RNA RACIEL+probe Ql (Unsp spec) Negative Normal NEGATIVE [facility] Comment on above: Performed By: #### C VDTBH #### [facility] [address] [address] [address] Lisa Martinez T4on 11-13-2022 T4 [Mass/Vol] 6.70 ug/dL Normal 4.80-13.90 [facility] Comment on above: Performed By: #### B SENIOR CLINICAL PROJECT MANAGER, BMP #### [facility] [address] [place] [address] Dr. Lisa Martinez TROPONIN, HIGH SENSITIVITYon 11-13-2022 HSTROP 17.9 pg/mL Normal 4.0-51.3 [facility] Comment on above: Result Comment: CUT- OFF POINTS HAVE BEEN ESTABLISHED BASED ON THE FOURTH UNIVERSAL DEFINITIONS OF MYOCARDIAL INFARCTION. THE UPPER REFERENCE LIMIT (URL) OF TROPONIN, DEFINED THE 99TH PERCENTILE OF cTnI DISTRIBUTION IN A REFERENCE POPULATION, HAS BEEN CONFIRMED THE DECISION THRESHOLD FOR HI DIAGNOSIS. Performed By: #### B MP, HSTROPN, BNP ####[facility] [address] [address]Dr. Lisa Martinez TSHon 11-13-2022 TSH 5.233 uIU/mL Critically high 0.358-3.740 [facility] Comment on above: Performed By: #### B SENIOR CLINICAL PROJECT MANAGER, BMP #### [facility] [address] [address] [address] Lisa Martinez UA RANDOM W/MICROSCOPICon BACTERIA SMALL Abnormal NONE SEEN [facility] Comment on above: Performed By: #### K U #### [facility] [address] [address] [address] Lisa Martinez Bilirubin Ql (U) Negative Normal NEGATIVE [facility] Comment on above: Performed By: #### K U #### [facility] [address] [place] [address] Dr. Lisa Martinez CAST SEEN Abnormal NONE SEEN [facility] Comment on above: Performed By: #### K U #### [facility] [address] [place] [address] Dr. Lisa Martinez Clarity (U) CLEAR Normal CLEAR [facility] Comment on above: Performed By: #### K U #### [facility] [address] [place] [address] Dr. Lisa Martinez Color (U) LT. YELLOW Normal YELLOW [facility] Comment on above: Performed By: #### K U #### [facility] [address] [place] [address] Dr. Lisa Martinez Crystals LM Nom (Urine sed) NONE SEEN Normal NONE SEEN [facility] Comment on above: Performed By: #### K U #### [facility] [address] [place] [address] Dr. Lisa Martinez Epithelial cells LM Ql (Urine sed) FEW Abnormal NONE SEEN /RARE [facility] Comment on above: Performed By: #### K U #### [facility] [address] [place] [address] Dr. Lisa Martinez Glucose Ql (U) Negative Normal NEGATIVE [facility] Comment on above: Performed By: #### K U #### [facility] [address] [place] [address] Dr. Lisa Martinez Hemoglobin Ql (U) Negative Normal NEGATIVE [facility] Comment on above: Performed By: #### K U #### [facility] [address] [place] [address] Dr. Lisa Martinez HYALINE CAST FEW Normal [facility] Comment on above: Performed By: #### K U #### [facility] [address] [place] [address] Dr. Lisa Martinez Ketones Ql (U) Negative Normal NEGATIVE [facility] Comment on above: Performed By: #### K U #### [facility] [address] [place] [address] Dr. Lisa Martinez LEUKOCYTES Negative Normal NEGATIVE [facility] Comment on above: Performed By: #### K U #### [facility] [address] [place] [address] Dr. Lisa Martinez MUCOUS NONE SEEN Normal NONE SEEN [facility] Comment on above: Performed By: #### K U #### [facility] [address] [place] [address] Dr. Lisa Martinez Nitrite Ql (U) Negative Normal NEGATIVE [facility] Comment on above: Performed By: #### K U #### [facility] [address] [place] [address] Dr. Lisa Martinez pH (U) 5.5 [pH] Normal 5-9 [facility] Comment on above: Performed By: #### K U #### [facility] [address] [place] [address] Dr. Lisa Martinez RBC NONE SEEN Abnormal 0-2 [facility] Comment on above: Performed By: #### K U #### [facility] [address] [place] [address] Dr. Lisa Martinez SPEC GRAVITY 1.010 Normal 1.005-<=1.0 25 [facility] Comment on above: Performed By: #### K U #### [facility] [address] [place] [address] Dr. Lisa Martinez UA PROTEIN Negative Normal NEGATIVE/ TRACE [facility] Comment on above: Performed By: #### K U #### [facility] [address] [place] [address] Dr. Lisa Martinez Urobilinogen Qn (U) 0.2 {Mike'U}/dL Normal 0.2 - 1. 0 [facility] Comment on above: Performed By: #### K U #### [facility] [address] [place] [address] Dr. Lisa Martinez WBC NONE SEEN Normal NONE SEEN [facility] Comment on above: Performed By: #### K U #### [facility] [address] [place] [address] Dr. Lisa Martinez US KIDNEYS BLADDERon 023 [...] by: Gela ARANDA Date: 2022-11-13 16:01 Normal [facility] XR CHEST 1 Von 11-13-2022 [...] by: MEENA WOOTEN Date: 2022-11-13 12:20 Normal [facility] PROF CHEM 8 (BAS METB)on Anion gap [Moles/Vol] 13.5 mmol/L Normal [facility] Comment on above: Performed By: #### B MP ####[facility] [address] [place], [place] [address]JaIngrid Martinez Calcium [Mass/Vol] 9.2 mg/dL Normal 8.5-10.1 [facility] Comment on above: Performed By: #### B MP ####[facility] [address] [address]Dr. Lisa Martinez Chloride [Moles/Vol] 108 mmol/L Critically high 98-107 [facility] Comment on above: Performed By: #### B MP ####[facility] [address] [address]Dr. Lisa Martinez CO2 [Moles/Vol] 25.6 mmol/L Normal 21.0-32.0 [facility] Comment on above: Performed By: #### B MP ####[facility] [address] [address]Dr. Lisa Martinez Creatinine [Mass/Vol] 1.53 mg/dL Critically high 0.55-1.02 [facility] Comment on above: Performed By: #### B MP ####[facility] [address] [place], [place] [address]Dr. Lisa Martinez EGFR-AF GUAMANIAN 39 mL/min/1.73m2 Critically low >=60 [facility] Comment on above: Performed By: #### B MP ####[facility] [address] [place], [place] [address]Dr. Lisa Martinez EGFR-NON AF GUAMANIAN 32 mL/min/1.73m2 Critically low >=60 [facility] Comment on above: Performed By: #### B MP ####[facility] [address] [place], [place] [address]Dr. Lisa Juan Glucose [Mass/Vol] 69 mg/dL Critically low 74-106 [facility] Comment on above: Performed By: #### B MP ####[facility] [address] [place], [place] [address]Dr. Lisa Martinez Potassium [Moles/Vol] 5.1 mmol/L Normal 3.5-5.1 [facility] Comment on above: Performed By: #### B MP ####[facility] [address] [place], [place] [address]Dr. Lisa Martinez Sodium [Moles/Vol] 142 mmol/L Normal 136-145 [facility] Comment on above: Performed By: #### B MP ####[facility] [address] [address]Dr. Lisa Martinez Urea nitrogen [Mass/Vol] 32.0 mg/dL Critically high 7.0-18.0 [facility] Comment on above: Performed By: #### B MP ####[facility] [address] [address]Dr. Lisa Martinez Urea nitrogen/Creatinine [Mass ratio] 20.9 mg/mg Normal [facility] Comment on above: Performed By: #### B MP ####[facility] [address] [address]Dr. Lisa Martinez BNPon 10-08-2022 Natriuretic peptide B (Bld) [Mass/Vol] 3489.0 pg/mL Critically high <=1,800.0 [facility] Comment on above: Performed By: #### B SENIOR CLINICAL PROJECT MANAGER, BMP #### [facility] [address] [place] [address] Dr. Lisa Martinez CBC AUTO DIFFon 10-08-2022 BASO # 0.0 103/ul Normal 0.0-0.1 [facility] Comment on above: Performed By: #### B SENIOR CLINICAL PROJECT MANAGER, BMP #### [facility] [address] [place] [address] Dr. Lisa Martinez Basophils/100 WBC (Bld) 0.6 % Normal 0.2-2.0 [facility] Comment on above: Performed By: #### B SENIOR CLINICAL PROJECT MANAGER, BMP #### [facility] [address] [place] [address] Dr. Lisa Martinez EO # 0.2 103/ul Normal 0.0-0.7 [facility] Comment on above: Performed By: #### B SENIOR CLINICAL PROJECT MANAGER, BMP #### [facility] [address] [place] [address] Dr. Lisa Martinez Eosinophils/100 WBC (Bld) 3.5 % Normal 0.9-7.0 [facility] Comment on above: Performed By: #### B SENIOR CLINICAL PROJECT MANAGER, BMP #### [facility] [address] [place] [address] Dr. Lisa Martinez Erythrocyte distribution width (RBC) [Ratio] 15.5 % Critically high 11.0-15.0 [facility] Comment on above: Performed By: #### B SENIOR CLINICAL PROJECT MANAGER, BMP #### [facility] [address] [place] [address] Dr. Lisa Martinez Hematocrit (Bld) [Volume fraction] 31.8 % Critically low 36.0-48.0 [facility] Comment on above: Performed By: #### B SENIOR CLINICAL PROJECT MANAGER, BMP #### [facility] [address] [place] [address] Dr. Lisa Martinez Hemoglobin (Bld) [Mass/Vol] 9.8 g/dL Critically low 12.0-16.0 [facility] Comment on above: Performed By: #### B SENIOR CLINICAL PROJECT MANAGER, BMP #### [facility] [address] [place] [address] Dr. Lisa Martinez IG # 0.02 10e3/ul Normal 0.00-0.03 [facility] Comment on above: Performed By: #### B SENIOR CLINICAL PROJECT MANAGER, BMP #### [facility] [address] [place] [address] Dr. Lisa Martinez IG % 0.3 % Normal 0.0-0.5 [facility] Comment on above: Performed By: #### B SENIOR CLINICAL PROJECT MANAGER, BMP #### [facility] [address] [place] [address] Dr. Lisa Martinez LYMPH # 0.9 103/ul Critically low 1.2-3.8 [facility] Comment on above: Performed By: #### B SENIOR CLINICAL PROJECT MANAGER, BMP #### [facility] [address] [place] [address] Dr. Lisa Martinez Lymphocytes/100 WBC (Bld) 14.0 % Critically low 20.5-60.0 [facility] Comment on above: Performed By: #### B SENIOR CLINICAL PROJECT MANAGER, BMP #### [facility] [address] [place] [address] Dr. Lisa Martinez MANUAL DIFF REQ NO Normal [facility] Comment on above: Performed By: #### B SENIOR CLINICAL PROJECT MANAGER, BMP #### [facility] [address] [place] [address] Dr. Lisa Martinez MCH (RBC) [Entitic mass] 29.9 pg Normal 26.7-34.0 [facility] Comment on above: Performed By: #### B SENIOR CLINICAL PROJECT MANAGER, BMP #### [facility] [address] [place] [address] Dr. Lisa Martinez MCHC (RBC) [Mass/Vol] 30.8 g/dL Normal 29.9-35.2 [facility] Comment on above: Performed By: #### B SENIOR CLINICAL PROJECT MANAGER, BMP #### [facility] [address] [place] [address] Dr. Lisa Martinez MCV (RBC) [Entitic vol] 97.0 fL Normal 81.0-99.0 [facility] Comment on above: Performed By: #### B SENIOR CLINICAL PROJECT MANAGER, BMP #### [facility] [address] [place] [address] Dr. Lisa Martinez MONO # 0.8 103/ul Normal 0.3-0.8 [facility] Comment on above: Performed By: #### B SENIOR CLINICAL PROJECT MANAGER, BMP #### [facility] [address] [place] [address] Dr. Lisa Martinez Monocytes/100 WBC (Bld) 11.9 % Normal 1.7-12.0 [facility] Comment on above: Performed By: #### B SENIOR CLINICAL PROJECT MANAGER, BMP #### [facility] [address] [place] [address] Dr. Lisa Martinez NEUT # 4.4 103/ul Normal 1.4-6.5 [facility] Comment on above: Performed By: #### B SENIOR CLINICAL PROJECT MANAGER, BMP #### [facility] [address] [place] [address] Dr. Lisa Martinez Neutrophils/100 WBC (Bld) 69.7 % Normal 43.0-75.0 [facility] Comment on above: Performed By: #### B SENIOR CLINICAL PROJECT MANAGER, BMP #### [facility] [address] [place] [address] Dr. iLsa Martinez Platelet mean volume (Bld) [Entitic vol] 10.3 fL Normal 9.5-13.5 [facility] Comment on above: Performed By: #### B SENIOR CLINICAL PROJECT MANAGER, BMP #### [facility] [address] [address] [address] Lisa Martinez PLT 223 103/ul Normal 150-450 [facility] Comment on above: Performed By: #### B SENIOR CLINICAL PROJECT MANAGER, BMP #### [facility] [address] [address] [address] Lisa Martinez RBC 3.28 106/ul Critically low 4.20-5.40 [facility] Comment on above: Performed By: #### B SENIOR CLINICAL PROJECT MANAGER, BMP #### [facility] [address] [address] [address] Lisa Martinez WBC 6.3 103/ul Normal 4.0-11.0 [facility] Comment on above: Performed By: #### B SENIOR CLINICAL PROJECT MANAGER, BMP #### [facility] [address] [place] [address] Dr. Lisa Martinez DIGOXINon 10-08-2022 DIG 1.6 ng/mL Normal 0.9-2.0 [facility] Comment on above: Performed By: #### D IG ####[facility] [address] [address]Dr. Lisa Martinez POINT OF CARE GLUCOSEon 04-0 Glucose [Mass/Vol] 226 mg/dL Critically high 74-106 [facility] Comment on above: Performed By: #### P OCGLUC ####[facility] [address] [address]Dr. Lisa Martinez Glucose [Mass/Vol] 107 mg/dL Critically high 74-106 [facility] Comment on above: Performed By: #### B LDCX2 #### [facility] [address] [place] [address] Dr. Lisa Martinez PROF CHEM 8 (BAS METB)on Anion gap [Moles/Vol] 11.7 mmol/L Normal [facility] Comment on above: Performed By: #### B SENIOR CLINICAL PROJECT MANAGER, BMP #### [facility] [address] [place] [address] Dr. Lisa Martinez Calcium [Mass/Vol] 9.2 mg/dL Normal 8.5-10.1 [facility] Comment on above: Performed By: #### B SENIOR CLINICAL PROJECT MANAGER, BMP #### [facility] [address] [address] [address] Lisa Martinez Chloride [Moles/Vol] 102 mmol/L Normal 98-107 [facility] Comment on above: Performed By: #### B SENIOR CLINICAL PROJECT MANAGER, BMP #### [facility] [address] [address] [address] Lisa Martinez CO2 [Moles/Vol] 29.3 mmol/L Normal 21.0-32.0 [facility] Comment on above: Performed By: #### B SENIOR CLINICAL PROJECT MANAGER, BMP #### [facility] [address] [address] [address] Lisa Martinez Creatinine [Mass/Vol] 1.27 mg/dL Critically high 0.55-1.02 [facility] Comment on above: Performed By: #### B SENIOR CLINICAL PROJECT MANAGER, BMP #### [facility] [address] [place] [address] Dr. Lisa Martinez EGFR-AF GUAMANIAN 49 mL/min/1.73m2 Critically low >=60 [facility] Comment on above: Performed By: #### B SENIOR CLINICAL PROJECT MANAGER, BMP #### [facility] [address] [place] [address] Dr. Lisa Martinez EGFR-NON AF GUAMANIAN 40 mL/min/1.73m2 Critically low >=60 [facility] Comment on above: Performed By: #### B SENIOR CLINICAL PROJECT MANAGER, BMP #### [facility] [address] [place] [address] Dr. Lisa Martinez Glucose [Mass/Vol] 98 mg/dL Normal 74-106 [facility] Comment on above: Performed By: #### B SENIOR CLINICAL PROJECT MANAGER, BMP #### [facility] [address] [place] [address] Dr. Lisa Martinez Potassium [Moles/Vol] 4.0 mmol/L Normal 3.5-5.1 [facility] Comment on above: Performed By: #### B SENIOR CLINICAL PROJECT MANAGER, BMP #### [facility] [address] [place] [address] Dr. Lisa Martinez Sodium [Moles/Vol] 139 mmol/L Normal 136-145 [facility] Comment on above: Performed By: #### B SENIOR CLINICAL PROJECT MANAGER, BMP #### [facility] [address] [place] [address] Dr. Lisa Martinez Urea nitrogen [Mass/Vol] 26.0 mg/dL Critically high 7.0-18.0 [facility] Comment on above: Performed By: #### B SENIOR CLINICAL PROJECT MANAGER, BMP #### [facility] [address] [place] [address] Dr. Lisa Martinez Urea nitrogen/Creatinine [Mass ratio] 20.5 mg/mg Normal [facility] Comment on above: Performed By: #### B SENIOR CLINICAL PROJECT MANAGER, BMP #### [facility] [address] [place] [address] Dr. Lisa Martinez BNPon 10-07-2022 Natriuretic peptide B (Bld) [Mass/Vol] 6039.0 pg/mL Critically high <=1,800.0 [facility] Comment on above: Performed By: #### B SENIOR CLINICAL PROJECT MANAGER ####[facility] [address] [address]Dr. Lisa Martinez CBC AUTO DIFFon 10-07-2022 BASO # 0.1 103/ul Normal 0.0-0.1 [facility] Comment on above: Performed By: #### K U #### [facility] [address] [place] [address] Dr. Lisa Martinez Basophils/100 WBC (Bld) 0.7 % Normal 0.2-2.0 [facility] Comment on above: Performed By: #### K U #### [facility] [address] [place] [address] Dr. Lisa Martinez EO # 0.3 103/ul Normal 0.0-0.7 [facility] Comment on above: Performed By: #### K U #### [facility] [address] [place] [address] Dr. Lisa Martinez Eosinophils/100 WBC (Bld) 4.0 % Normal 0.9-7.0 [facility] Comment on above: Performed By: #### K U #### [facility] [address] [place] [address] Dr. Lisa Martinez Erythrocyte distribution width (RBC) [Ratio] 15.6 % Critically high 11.0-15.0 [facility] Comment on above: Performed By: #### K U #### [facility] [address] [place] [address] Dr. Lisa Martinez Hematocrit (Bld) [Volume fraction] 34.0 % Critically low 36.0-48.0 [facility] Comment on above: Performed By: #### K U #### [facility] [address] [place] [address] Dr. Lisa Martinez Hemoglobin (Bld) [Mass/Vol] 10.4 g/dL Critically low 12.0-16.0 [facility] Comment on above: Performed By: #### K U #### [facility] [address] [place] [address] Dr. Lisa Martinez IG # 0.02 10e3/ul Normal 0.00-0.03 [facility] Comment on above: Performed By: #### K U #### [facility] [address] [place] [address] Dr. Lisa Martinez IG % 0.3 % Normal 0.0-0.5 [facility] Comment on above: Performed By: #### K U #### [facility] [address] [place] [address] Dr. Lisa Martinez LYMPH # 1.0 103/ul Critically low 1.2-3.8 [facility] Comment on above: Performed By: #### K U #### [facility] [address] [place] [address] Dr. Lisa Martinez Lymphocytes/100 WBC (Bld) 14.9 % Critically low 20.5-60.0 [facility] Comment on above: Performed By: #### K U #### [facility] [address] [place] [address] Dr. Lisa Martinez MANUAL DIFF REQ NO Normal [facility] Comment on above: Performed By: #### K U #### [facility] [address] [place] [address] Dr. Lisa Martinez MCH (RBC) [Entitic mass] 29.8 pg Normal 26.7-34.0 [facility] Comment on above: Performed By: #### K U #### [facility] [address] [place] [address] Dr. Lisa Martinez MCHC (RBC) [Mass/Vol] 30.6 g/dL Normal 29.9-35.2 [facility] Comment on above: Performed By: #### K U #### [facility] [address] [place] [address] Dr. Lisa Martinez MCV (RBC) [Entitic vol] 97.4 fL Normal 81.0-99.0 [facility] Comment on above: Performed By: #### K U #### [facility] [address] [place] [address] Dr. Lisa Martinez MONO # 0.6 103/ul Normal 0.3-0.8 [facility] Comment on above: Performed By: #### K U #### [facility] [address] [place] [address] Dr. Lisa Martinez Monocytes/100 WBC (Bld) 8.8 % Normal 1.7-12.0 [facility] Comment on above: Performed By: #### K U #### [facility] [address] [place] [address] Dr. Lisa Martinez NEUT # 4.9 103/ul Normal 1.4-6.5 [facility] Comment on above: Performed By: #### K U #### [facility] [address] [place] [address] Dr. Lisa aMrtinez Neutrophils/100 WBC (Bld) 71.3 % Normal 43.0-75.0 [facility] Comment on above: Performed By: #### K U #### [facility] [address] [place] [address] Dr. Lisa Martinez Platelet mean volume (Bld) [Entitic vol] 10.5 fL Normal 9.5-13.5 [facility] Comment on above: Performed By: #### K U #### [facility] [address] [place] [address] Dr. Lisa Martinez PLT 251 103/ul Normal 150-450 [facility] Comment on above: Performed By: #### K U #### [facility] [address] [address] [address] Lisa Martinez RBC 3.49 106/ul Critically low 4.20-5.40 [facility] Comment on above: Performed By: #### K U #### [facility] [address] [address] [address] Lisa Martinez WBC 6.8 103/ul Normal 4.0-11.0 [facility] Comment on above: Performed By: #### K U #### [facility] [address] [place] [address] Dr. Lisa Martinez DIGOXINon 10-07-2022 DIG 1.7 ng/mL Normal 0.9-2.0 [facility] Comment on above: Performed By: #### U RCX #### [facility] [address] [place] [address] Dr. Lisa Martinez POINT OF CARE GLUCOSEon Glucose [Mass/Vol] 185 mg/dL Critically high 74-106 [facility] Comment on above: Performed By: #### B SENIOR CLINICAL PROJECT MANAGER, BMP #### [facility] [address] [place] [address] Dr. Lisa Martinez Glucose [Mass/Vol] 120 mg/dL Critically high -106 [facility] Comment on above: Performed By: #### C VDTBH #### [facility] [address] [place] [address] Dr. Lisa Martinez Glucose [Mass/Vol] 218 mg/dL Critically high -106 [facility] Comment on above: Performed By: #### B LDCX2 #### [facility] [address] [place] [address] Dr. Lisa Martinez PROF CHEM 8 (BAS METB)on Anion gap [Moles/Vol] 12.3 mmol/L Normal [facility] Comment on above: Performed By: #### B SENIOR CLINICAL PROJECT MANAGER, BMP #### [facility] [address] [place] [address] Dr. Lisa Martinez Calcium [Mass/Vol] 9.3 mg/dL Normal 8.5-10.1 [facility] Comment on above: Performed By: #### B SENIOR CLINICAL PROJECT MANAGER, BMP #### [facility] [address] [place] [address] Dr. Lisa Martinez Chloride [Moles/Vol] 102 mmol/L Normal 98-107 [facility] Comment on above: Performed By: #### B SENIOR CLINICAL PROJECT MANAGER, BMP #### [facility] [address] [address] [address] Lisa Martinez CO2 [Moles/Vol] 30.8 mmol/L Normal 21.0-32.0 [facility] Comment on above: Performed By: #### B SENIOR CLINICAL PROJECT MANAGER, BMP #### [facility] [address] [place] [address] Dr. Lisa Martinez Creatinine [Mass/Vol] 1.45 mg/dL Critically high 0.55-1.02 [facility] Comment on above: Performed By: #### B SENIOR CLINICAL PROJECT MANAGER, BMP #### [facility] [address] [place] [address] Dr. Lisa Martinez EGFR-AF GUAMANIAN 42 mL/min/1.73m2 Critically low >=60 [facility] Comment on above: Performed By: #### B SENIOR CLINICAL PROJECT MANAGER, BMP #### [facility] [address] [place] [address] Dr. Lisa Martinez EGFR-NON AF GUAMANIAN 34 mL/min/1.73m2 Critically low >=60 [facility] Comment on above: Performed By: #### B SENIOR CLINICAL PROJECT MANAGER, BMP #### [facility] [address] [place] [address] Dr. Lisa Matrinez Glucose [Mass/Vol] 103 mg/dL Normal 74-106 [facility] Comment on above: Performed By: #### B SENIOR CLINICAL PROJECT MANAGER, BMP #### [facility] [address] [place] [address] Dr. Lisa Martinez Potassium [Moles/Vol] 4.1 mmol/L Normal 3.5-5.1 [facility] Comment on above: Performed By: #### B SENIOR CLINICAL PROJECT MANAGER, BMP #### [facility] [address] [address] [address] Lisa Martinez Sodium [Moles/Vol] 141 mmol/L Normal 136-145 [facility] Comment on above: Performed By: #### B SENIOR CLINICAL PROJECT MANAGER, BMP #### [facility] [address] [address] [address] Lisa Martinez Urea nitrogen [Mass/Vol] 26.0 mg/dL Critically high 7.0-18.0 [facility] Comment on above: Performed By: #### B SENIOR CLINICAL PROJECT MANAGER, BMP #### [facility] [address] [address] [address] Lisa Martinez Urea nitrogen/Creatinine [Mass ratio] 17.9 mg/mg Normal [facility] Comment on above: Performed By: #### B SENIOR CLINICAL PROJECT MANAGER, BMP #### [facility] [address] [address] [address] Lisa Martinez BNPon 10-06-2022 Natriuretic peptide B (Bld) [Mass/Vol] 6211.0 pg/mL Critically high <=1,800.0 [facility] Comment on above: Performed By: #### C MADM, LIVER, CMP, BNP ####[facility] [address] [address]Dr. Lisa Martinez CARDIAC DONY ADMITon 023 CK [Catalytic activity/Vol] 50 U/L Normal 26-192 [facility] Comment on above: Performed By: #### C MADM, LIVER, CMP, BNP ####[facility] [address] [id number] Martinez CK.MB [Mass/Vol] 0.89 ng/mL Normal <=3.60 [facility] Comment on above: Performed By: #### C MADM, LIVER, CMP, BNP ####[facility] [address] [address]Dr. Lisa Martinez HSTROP 19.1 pg/mL Normal 4.0-51.3 [facility] Comment on above: Result Comment: CUT- OFF POINTS HAVE BEEN ESTABLISHED BASED ON THE FOURTH UNIVERSAL DEFINITIONS OF MYOCARDIAL INFARCTION. THE UPPER REFERENCE LIMIT (URL) OF TROPONIN, DEFINED THE 99TH PERCENTILE OF cTnI DISTRIBUTION IN A REFERENCE POPULATION, HAS BEEN CONFIRMED THE DECISION THRESHOLD FOR HI DIAGNOSIS. Performed By: #### C MADM, LIVER, CMP, BNP ####[facility] [address] [address]Dr. Lisa Martinez LISSY 56 ng/mL Normal 9-82 [facility] Comment on above: Performed By: #### C MADM, LIVER, CMP, BNP ####[facility] [address] [id number]. Lisa Martinez CBC AUTO DIFFon 10-06-2022 BASO # 0.1 103/ul Normal 0.0-0.1 [facility] Comment on above: Performed By: #### C BC #### [facility] [address] [address] [address] Lisa Martinez Basophils/100 WBC (Bld) 0.7 % Normal 0.2-2.0 [facility] Comment on above: Performed By: #### C BC #### [facility] [address] [place] [address] Dr. Lisa Martinez EO # 0.2 103/ul Normal 0.0-0.7 [facility] Comment on above: Performed By: #### C BC #### [facility] [address] [place] [address] Dr. Lisa Martinez Eosinophils/100 WBC (Bld) 2.0 % Normal 0.9-7.0 [facility] Comment on above: Performed By: #### C BC #### [facility] [address] [place] [address] Dr. Lisa Martinez Erythrocyte distribution width (RBC) [Ratio] 15.7 % Critically high 11.0-15.0 [facility] Comment on above: Performed By: #### C BC #### [facility] [address] [place] [address] Dr. Lisa Martinez Hematocrit (Bld) [Volume fraction] 32.4 % Critically low 36.0-48.0 [facility] Comment on above: Performed By: #### C BC #### [facility] [address] [place] [address] Dr. Lisa Martinez Hemoglobin (Bld) [Mass/Vol] 10.0 g/dL Critically low 12.0-16.0 [facility] Comment on above: Performed By: #### C BC #### [facility] [address] [place] [address] Dr. Lisa Martinez IG # 0.02 10e3/ul Normal 0.00-0.03 [facility] Comment on above: Performed By: #### C BC #### [facility] [address] [place] [address] Dr. Lisa Martinez IG % 0.3 % Normal 0.0-0.5 [facility] Comment on above: Performed By: #### C BC #### [facility] [address] [place] [address] Dr. Lisa Martinez LYMPH # 0.7 103/ul Critically low 1.2-3.[address] [facility] Comment on above: Performed By: #### C BC #### [facility] [address] [place] [address] Dr. Lisa Martinez Lymphocytes/100 WBC (Bld) 9.2 % Critically low 20.5-60.0 [facility] Comment on above: Performed By: #### C BC #### [facility] [address] [place] [address] Dr. Lisa Martinez MANUAL DIFF REQ NO Normal [facility] Comment on above: Performed By: #### C BC #### [facility] [address] [place] [address] Dr. Lisa Martinez MCH (RBC) [Entitic mass] 29.8 pg Normal 26.7-34.0 [facility] Comment on above: Performed By: #### C BC #### [facility] [address] [place] [address] Dr. Lisa Martinez MCHC (RBC) [Mass/Vol] 30.9 g/dL Normal 29.9-35.2 [facility] Comment on above: Performed By: #### C BC #### [facility] [address] [place] [address] Dr. Lisa Martinez MCV (RBC) [Entitic vol] 96.4 fL Normal 81.0-99.0 [facility] Comment on above: Performed By: #### C BC #### [facility] [address] [place] [address] Dr. Lisa Martinez MONO # 0.5 103/ul Normal 0.3-0.8 [facility] Comment on above: Performed By: #### C BC #### [facility] [address] [place] [address] Dr. Lisa Martinez Monocytes/100 WBC (Bld) 6.4 % Normal 1.7-12.0 [facility] Comment on above: Performed By: #### C BC #### [facility] [address] [place] [address] Dr. Lisa Martinez NEUT # 6.2 103/ul Normal 1.4-6.5 [facility] Comment on above: Performed By: #### C BC #### [facility] [address] [place] [address] Dr. Lisa Martinez Neutrophils/100 WBC (Bld) 81.4 % Critically high 43.0-75.0 [facility] Comment on above: Performed By: #### C BC #### [facility] [address] [place] [address] Dr. Lisa Martinez Platelet mean volume (Bld) [Entitic vol] 10.2 fL Normal 9.5-13.5 [facility] Comment on above: Performed By: #### C BC #### [facility] [address] [place] [address] Dr. Lisa Martinez PLT 228 103/ul Normal 150-450 [facility] Comment on above: Performed By: #### C BC #### [facility] [address] [place] [address] Dr. Lisa Martinez RBC 3.36 106/ul Critically low 4.20-5.40 [facility] Comment on above: Performed By: #### C BC #### [facility] [address] [place] [address] Dr. Lisa Martinez WBC 7.6 103/ul Normal 4.0-11.0 [facility] Comment on above: Performed By: #### C #### [facility] [address] [address] [address] Lisa Martinez CTA CHEST WO W [...] for this test is supported by the [place] of Health and Human Service's declaration that [...] By: #### C VDTBH ####[facility] [address] [address]Dr. Lisa Martinez DIGOXINon 10-06-2022 DIG 2.3 ng/mL Critically high 0.9-2.0 [facility] Comment on above: Performed By: #### C BC #### [facility] [address] [place] [address] Dr. Lisa Martinez LIVER PROFILEon 10-06-2022 BILI, CONJUGATED 0.4 mg/dL Critically high 0.0-0.2 [facility] Comment on above: Performed By: #### C MADM, LIVER, CMP, BNP ####[facility] [address] [address]Dr. Lisa Martinez POINT OF CARE GLUCOSEon 09-08 Glucose [Mass/Vol] 154 mg/dL Critically high 74-106 [facility] Comment on above: Performed By: #### B SENIOR CLINICAL PROJECT MANAGER, BMP #### [facility] [address] [place] [address] Dr. Lisa Martinez Glucose [Mass/Vol] 77 mg/dL Normal 74-106 [facility] Comment on above: Performed By: #### B SENIOR CLINICAL PROJECT MANAGER, BMP #### [facility] [address] [address] [address] Lisa Martinez PROF 14(COMP METB)on 023 Albumin [Mass/Vol] 3.5 g/dL Normal 3.4-5.0 [facility] Comment on above: Performed By: #### C MADM, LIVER, CMP, BNP ####[facility] [address] [address]Dr. Lisa Martinez Albumin/Globulin [Mass ratio] 0.8 {ratio} Normal [facility] Comment on above: Performed By: #### C MADM, LIVER, CMP, BNP ####[facility] [address] [address]Dr. Lisa Martinez ALP [Catalytic activity/Vol] 94 U/L Normal 46-116 [facility] Comment on above: Performed By: #### C MADM, LIVER, CMP, BNP ####[facility] [address] [address]Dr. Lisa Martinez ALT [Catalytic activity/Vol] 13 U/L Critically low 14-59 [facility] Comment on above: Performed By: #### C MADM, LIVER, CMP, BNP ####[facility] [address] [address]Dr. Lisa Martinez Anion gap [Moles/Vol] 11.1 mmol/L Normal [facility] Comment on above: Performed By: #### C MADM, LIVER, CMP, BNP ####[facility] [address] [address]Dr. Lisa Martinez AST [Catalytic activity/Vol] 15 U/L Normal 15-37 [facility] Comment on above: Performed By: #### C MADM, LIVER, CMP, BNP ####[facility] [address] [address]Dr. Lisa Martinez Bilirubin [Mass/Vol] 1.6 mg/dL Critically high 0.2-1.0 [facility] Comment on above: Performed By: #### C MADM, LIVER, CMP, BNP ####[facility] [address] [address]Dr. Lisa Martinez Calcium [Mass/Vol] 9.2 mg/dL Normal 8.5-10.1 [facility] [facility] Comment on above: Performed By: #### C MADM, LIVER, CMP, BNP ####[facility] [address] [address]Dr. Lisa Martinez Chloride [Moles/Vol] 106 mmol/L Normal 98-107 [facility] Comment on above: Performed By: #### C MADM, LIVER, CMP, BNP ####[facility] [address] [address]Dr. Lisa Martinez CO2 [Moles/Vol] 29.0 mmol/L Normal 21.0-32.0 [facility] Comment on above: Performed By: #### C MADM, LIVER, CMP, BNP ####[facility] [address] [address]Dr. Lisa Martinez Creatinine [Mass/Vol] 1.43 mg/dL Critically high 0.55-1.02 [facility] Comment on above: Performed By: #### C MADM, LIVER, CMP, BNP ####[facility] [address] [address]Dr. Lisa Martinez EGFR-AF GUAMANIAN 42 mL/min/1.73m2 Critically low >=60 [facility] Comment on above: Performed By: #### C MADM, LIVER, CMP, BNP ####[facility] [address] [address]Dr. Lisa Martinez EGFR-NON AF GUAMANIAN 35 mL/min/1.73m2 Critically low >=60 [facility] Comment on above: Performed By: #### C MADM, LIVER, CMP, BNP ####[facility] [address] [address]Dr. Lisa Martinez Globulin (S) [Mass/Vol] 4.2 g/dL Normal [facility] Comment on above: Performed By: #### C MADM, LIVER, CMP, BNP ####[facility] [address] [address]Dr. Yilan Martinez Glucose [Mass/Vol] 114 mg/dL Critically high 74-106 [facility] Comment on above: Performed By: #### C MADM, LIVER, CMP, BNP ####[facility] [address] [address]Dr. Lisa Martinez Potassium [Moles/Vol] 4.1 mmol/L Normal 3.5-5.1 [facility] Comment on above: Performed By: #### C MADM, LIVER, CMP, BNP ####[facility] [address] [place] [address]Dr. Lisa Martinez Protein [Mass/Vol] 7.7 g/dL Normal 6.4-8.2 [facility] Comment on above: Performed By: #### C MADM, LIVER, CMP, BNP ####[facility] [address] [address]Dr. Lisa Martinez Sodium [Moles/Vol] 142 mmol/L Normal 136-145 [facility] Comment on above: Performed By: #### C MADM, LIVER, CMP, BNP ####[facility] [address] [place] [address]Dr. Lisa Martinez Urea nitrogen [Mass/Vol] 26.0 mg/dL Critically high 7.0-18.0 [facility] Comment on above: Performed By: #### C MADM, LIVER, CMP, BNP ####[facility] [address] [address]Dr. Lisa Martinez Urea nitrogen/Creatinine [Mass ratio] 18.2 mg/mg Normal [facility] Comment on above: Performed By: #### C MADM, LIVER, CMP, BNP ####[facility] [address] [place] [address]DrIngrid Martinez PROTIMEon 10-06-2022 INR Coag (PPP) [Relative time] 1.09 {INR} Normal [facility] Comment on above: Performed By: #### B SENIOR CLINICAL PROJECT MANAGER, BMP #### [facility] [address] [address] [address] Lisa Martinez INR GUIDELINES SEE BELOW Normal [facility] Comment on above: Result Comment: ANTONY RED INR: 2.0 - 3.0 CONDITIONS NOT LISTED BELOW 2.5 - 3.5 FOR PROSTHETIC HEART VALVE REPLACEMENT 2.5 - 3.5 RECURRENT THROMBOSIS Performed By: #### B SENIOR CLINICAL PROJECT MANAGER, BMP #### [facility] [address] [place] [address] Dr. Lisa Martinez PT Coag (PPP) [Time] 11.5 s Normal 9.0-11.6 [facility] Comment on above: Performed By: #### B SENIOR CLINICAL PROJECT MANAGER, BMP #### [facility] [address] [place] [address] Dr. Lisa Martinez PTTon 10-06-2022 aPTT Coag (Bld) [Time] 26.5 s Normal 22.3-36.2 [facility] Comment on above: Performed By: #### B SENIOR CLINICAL PROJECT MANAGER, BMP #### [facility] [address] [place] [address] Dr. Lisa Martinez ECHOCARDIO M/2D COMPLETEon 1 08-27-2021 ECHOCARDIO M/2D COMPLETE Patient: JENNI QUINONES Exam Date: 06/26/2022 : 1940 Gender:F Ordering : FARZANEH ARNDT Admission #: [id number] Family : Order #: [id number] CLICK HERE TO VIEW EXAM ECHOCARDIOGRAM REPORT [...] 0.81 cm2, 0.87 cm2, 0.77 cm2 Deceleration Menard: 0.72 m/s2 Pressure Half-Time: 1.18 s Peak [...] Nova M.D. on 06/29/2022 at 15:34 Normal [facility] CBC AUTO DIFFon 05-02-2022 BASO # 0.0 103/ul Normal 0.0-0.1 [facility] Comment on above: Performed By: #### C BC #### [facility] [address] [place] [address] Dr. Lisa Martinez Basophils/100 WBC (Bld) 0.4 % Normal 0.2-2.0 [facility] Comment on above: Performed By: #### C BC #### [facility] [address] [place] [address] Dr. Lisa Martinez EO # 0.1 103/ul Normal 0.0-0.7 [facility] Comment on above: Performed By: #### C BC #### [facility] [address] [place] [address] Dr. Lisa Martinez Eosinophils/100 WBC (Bld) 1.8 % Normal 0.9-7.0 [facility] Comment on above: Performed By: #### C BC #### [facility] [address] [place] [address] Dr. Lisa Martinez Erythrocyte distribution width (RBC) [Ratio] 13.3 % Normal 11.0-15.0 [facility] Comment on above: Performed By: #### C BC #### [facility] [address] [place] [address] Dr. Lisa Martinez Hematocrit (Bld) [Volume fraction] 38.4 % Normal 36.0-48.0 [facility] Comment on above: Performed By: #### C BC #### [facility] [address] [place] [address] Dr. Lisa Martinez Hemoglobin (Bld) [Mass/Vol] 12.0 g/dL Normal 12.0-16.0 [facility] Comment on above: Performed By: #### C BC #### [facility] [address] [place] [address] Dr. Lisa Martinez IG # 0.09 10e3/ul Critically high 0.00-0.03 [facility] Comment on above: Performed By: #### C BC #### [facility] [address] [place] [address] Dr. Lisa Martinez IG % 1.6 % Critically high 0.0-0.5 [facility] Comment on above: Performed By: #### C BC #### [facility] [address] [place] [address] Dr. Lisa Martinez LYMPH # 0.9 103/ul Critically low 1.2-3.[address] [facility] Comment on above: Performed By: #### C BC #### [facility] [address] [place] [address] Dr. Lisa Martinez Lymphocytes/100 WBC (Bld) 16.0 % Critically low 20.5-60.0 [facility] Comment on above: Performed By: #### C BC #### [facility] [address] [place] [address] Dr. Lisa Martinez MANUAL DIFF REQ NO Normal [facility] Comment on above: Performed By: #### C BC #### [facility] [address] [place] [address] Dr. Lisa Martinez MCH (RBC) [Entitic mass] 30.2 pg Normal 26.7-34.0 [facility] Comment on above: Performed By: #### C BC #### [facility] [address] [place] [address] Dr. Lisa Martinez MCHC (RBC) [Mass/Vol] 31.3 g/dL Normal 29.9-35.2 [facility] Comment on above: Performed By: #### C BC #### [facility] [address] [place] [address] Dr. Lisa Martinez MCV (RBC) [Entitic vol] 96.7 fL Normal 81.0-99.0 [facility] Comment on above: Performed By: #### C BC #### [facility] [address] [place] [address] Dr. Lisa Martinez MONO # 0.6 103/ul Normal 0.3-0.8 [facility] Comment on above: Performed By: #### C BC #### [facility] [address] [place] [address] Dr. Lisa Martinez Monocytes/100 WBC (Bld) 11.3 % Normal 1.7-12.0 [facility] Comment on above: Performed By: #### C BC #### [facility] [address] [place] [address] Dr. Lisa Martinez NEUT # 3.9 103/ul Normal 1.4-6.5 [facility] Comment on above: Performed By: #### C BC #### [facility] [address] [place] [address] Dr. Lisa Martinez Neutrophils/100 WBC (Bld) 68.9 % Normal 43.0-75.0 [facility] Comment on above: Performed By: #### C BC #### [facility] [address] [place] [address] Dr. Lisa Martinez Platelet mean volume (Bld) [Entitic vol] 10.7 fL Normal 9.5-13.5 [facility] Comment on above: Performed By: #### C BC #### [facility] [address] [place] [address] Dr. Lisa Martinez PLT 164 103/ul Normal 150-450 [facility] Comment on above: Performed By: #### C BC #### [facility] [address] [address] [address] Lisa Martinez RBC 3.97 106/ul Critically low 4.20-5.40 [facility] Comment on above: Performed By: #### C BC #### [facility] [address] [address] [address] Lisa Martinez WBC 5.6 103/ul Normal 4.0-11.0 [facility] Comment on above: Performed By: #### C BC #### [facility] [address] [address] [address] Lisa Martinez PROF 14(COMP METB)on 022 Albumin [Mass/Vol] 2.8 g/dL Critically low 3.4-5.0 [facility] Comment on above: Performed By: #### U RCX #### [facility] [address] [place] [address] Dr. Lisa Martinez Albumin/Globulin [Mass ratio] 0.7 {ratio} Normal [facility] Comment on above: Performed By: #### U RCX #### [facility] [address] [place] [address] Dr. Lisa Martinez ALP [Catalytic activity/Vol] 74 U/L Normal 46-116 [facility] Comment on above: Performed By: #### U RCX #### [facility] [address] [place] [address] Dr. Lisa Martinez ALT [Catalytic activity/Vol] 11 U/L Critically low 14-59 [facility] Comment on above: Performed By: #### U RCX #### [facility] [address] [place] [address] Dr. Lisa Martinez Anion gap [Moles/Vol] 13.5 mmol/L Normal [facility] Comment on above: Performed By: #### U RCX #### [facility] [address] [place] [address] Dr. Lisa Martinez AST [Catalytic activity/Vol] 14 U/L Critically low 15-37 [facility] Comment on above: Performed By: #### U RCX #### [facility] [address] [address] [address] Lisa Martinez Bilirubin [Mass/Vol] 0.5 mg/dL Normal 0.2-1.0 [facility] Comment on above: Performed By: #### U RCX #### [facility] [address] [address] [address] Lisa Martinez Calcium [Mass/Vol] 8.5 mg/dL Normal 8.5-10.1 [facility] Comment on above: Performed By: #### U RCX #### [facility] [address] [address] [address] Lisa Martinez Chloride [Moles/Vol] 103 mmol/L Normal 98-107 [facility] Comment on above: Performed By: #### U RCX #### [facility] [address] [place] [address] Dr. Lisa Martinez CO2 [Moles/Vol] 24.5 mmol/L Normal 21.0-32.0 [facility] Comment on above: Performed By: #### U RCX #### [facility] [address] [place] [address] Dr. Lisa Martinez Creatinine [Mass/Vol] 1.43 mg/dL Critically high 0.55-1.02 [facility] Comment on above: Performed By: #### U RCX #### [facility] [address] [place] [address] Dr. Lisa Martinez EGFR-AF GUAMANIAN 42 mL/min/1.73m2 Critically low >=60 [facility] Comment on above: Performed By: #### U RCX #### [facility] [address] [place] [address] Dr. Lisa Martinez EGFR-NON AF GUAMANIAN 35 mL/min/1.73m2 Critically low >=60 [facility] Comment on above: Performed By: #### U RCX #### [facility] [address] [place] [address] Dr. Lisa Martinez Globulin (S) [Mass/Vol] 4.3 g/dL Normal [facility] Comment on above: Performed By: #### U RCX #### [facility] [address] [place] [address] Dr. Lisa Martinez Glucose [Mass/Vol] 142 mg/dL Critically high 74-106 [facility] Comment on above: Performed By: #### U RCX #### [facility] [address] [place] [address] Dr. Lisa Martinez Potassium [Moles/Vol] 4.0 mmol/L Normal 3.5-5.1 [facility] Comment on above: Performed By: #### U RCX #### [facility] [address] [place] [address] Dr. Lisa Martinez Protein [Mass/Vol] 7.1 g/dL Normal 6.4-8.2 [facility] Comment on above: Performed By: #### U RCX #### [facility] [address] [place] [address] Dr. Lisa Martinez Sodium [Moles/Vol] 137 mmol/L Normal 136-145 [facility] Comment on above: Performed By: #### U RCX #### [facility] [address] [place] [address] Dr. Lisa Martinez Urea nitrogen [Mass/Vol] 31.0 mg/dL Critically high 7.0-18.0 [facility] Comment on above: Performed By: #### U RCX #### [facility] [address] [place] [address] Dr. Lisa Martinez Urea nitrogen/Creatinine [Mass ratio] 21.7 mg/mg Normal [facility] Comment on above: Performed By: #### U RCX #### [facility] [address] [place] [address] Dr. Lisa Martinez CBC AUTO DIFFon 05-01-2022 BASO # 0.0 103/ul Normal 0.0-0.1 [facility] Comment on above: Performed By: #### U RCX #### [facility] [address] [place] [address] Dr. Lisa Martinez Basophils/100 WBC (Bld) 0.3 % Normal 0.2-2.0 [facility] Comment on above: Performed By: #### U RCX #### [facility] [address] [place] [address] Dr. Lisa Martinez EO # 0.1 103/ul Normal 0.0-0.7 [facility] Comment on above: Performed By: #### U RCX #### [facility] [address] [place] [address] Dr. Lisa Martinez Eosinophils/100 WBC (Bld) 0.9 % Normal 0.9-7.0 [facility] Comment on above: Performed By: #### U RCX #### [facility] [address] [place] [address] Dr. Lisa Martinez Erythrocyte distribution width (RBC) [Ratio] 13.4 % Normal 11.0-15.0 [facility] Comment on above: Performed By: #### U RCX #### [facility] [address] [place] [address] Dr. Lisa Martinez Hematocrit (Bld) [Volume fraction] 41.6 % Normal 36.0-48.0 [facility] Comment on above: Performed By: #### U RCX #### [facility] [address] [place] [address] Dr. Lisa Martinez Hemoglobin (Bld) [Mass/Vol] 12.8 g/dL Normal 12.0-16.0 [facility] Comment on above: Performed By: #### U RCX #### [facility] [address] [place] [address] Dr. Lisa Martinez IG # 0.16 10e3/ul Critically high 0.00-0.03 [facility] Comment on above: Performed By: #### U RCX #### [facility] [address] [place] [address] Dr. Lisa Martinez IG % 1.6 % Critically high 0.0-0.5 [facility] Comment on above: Performed By: #### U RCX #### [facility] [address] [place] [address] Dr. Lisa Martinez LYMPH # 0.8 103/ul Critically low 1.2-3.[address] [facility] Comment on above: Performed By: #### U RCX #### [facility] [address] [place] [address] Dr. Lisa Martinez Lymphocytes/100 WBC (Bld) 7.8 % Critically low 20.5-60.0 [facility] Comment on above: Performed By: #### U RCX #### [facility] [address] [place] [address] Dr. Lisa Martinez MANUAL DIFF REQ NO Normal [facility] Comment on above: Performed By: #### U RCX #### [facility] [address] [place] [address] Dr. Lisa Martinez MCH (RBC) [Entitic mass] 29.8 pg Normal 26.7-34.0 [facility] Comment on above: Performed By: #### U RCX #### [facility] [address] [place] [address] Dr. Lisa Martinez MCHC (RBC) [Mass/Vol] 30.8 g/dL Normal 29.9-35.2 [facility] Comment on above: Performed By: #### U RCX #### [facility] [address] [place] [address] Dr. Lisa Martinez MCV (RBC) [Entitic vol] 96.7 fL Normal 81.0-99.0 [facility] Comment on above: Performed By: #### U RCX #### [facility] [address] [place] [address] Dr. Lisa Martinez MONO # 0.8 103/ul Normal 0.3-0.8 [facility] Comment on above: Performed By: #### U RCX #### [facility] [address] [place] [address] Dr. Lisa Martinez Monocytes/100 WBC (Bld) 8.4 % Normal 1.7-12.0 [facility] Comment on above: Performed By: #### U RCX #### [facility] [address] [place] [address] Dr. Lisa Martinez NEUT # 7.9 103/ul Critically high 1.4-6.5 [facility] Comment on above: Performed By: #### U RCX #### [facility] [address] [place] [address] Dr. Lisa Martinez Neutrophils/100 WBC (Bld) 81.0 % Critically high 43.0-75.0 [facility] Comment on above: Performed By: #### U RCX #### [facility] [address] [place] [address] Dr. Lisa Martinez Platelet mean volume (Bld) [Entitic vol] 10.6 fL Normal 9.5-13.5 [facility] Comment on above: Performed By: #### U RCX #### [facility] [address] [place] [address] Dr. Lisa Martinez PLT 211 103/ul Normal 150-450 [facility] Comment on above: Performed By: #### U RCX #### [facility] [address] [place] [address] Dr. Lisa Martinez RBC 4.30 106/ul Normal 4.20-5.40 [facility] Comment on above: Performed By: #### U RCX #### [facility] [address] [place] [address] Dr. Lisa Martinez WBC 9.8 103/ul Normal 4.0-11.0 [facility] Comment on above: Performed By: #### U RCX #### [facility] [address] [place] [address] Dr. Lisa Martinez DIGOXINon 05-01-2022 DIG 0.7 ng/mL Critically low 0.9-2.[address] [facility] Comment on above: Performed By: #### B SENIOR CLINICAL PROJECT MANAGER, BMP #### [facility] [address] [place] [address] Dr. Lisa Martinez GI PANEL (PCR)on 05-01-2022 Adenovirus F 40/41 Not detected Normal NOT DETECTED [facility] Comment on above: Performed By: #### B LDCX2 #### [facility] [address] [place] [address] Dr. Lisa Martinez Astrovirus Not detected Normal NOT DETECTED [facility] Comment on above: Performed By: #### B LDCX2 #### [facility] [address] [place] [address] Dr. Lisa Martinez C. Diff toxin A/B Not detected Normal NOT DETECTED [facility] Comment on above: Performed By: #### B LDCX2 #### [facility] [address] [place] [address] Dr. Lisa Martinez Campylobacter Not detected Normal NOT DETECTED [facility] Comment on above: Performed By: #### B LDCX2 #### [facility] [address] [place] [address] Dr. Lisa Martinez Cryptosporidium Not detected Normal NOT DETECTED [facility] Comment on above: Performed By: #### B LDCX2 #### [facility] [address] [place] [address] Dr. Lisa Martinez Cyclos. Cayetanensis Not detected Normal NOT DETECTED [facility] Comment on above: Performed By: #### B LDCX2 #### [facility] [address] [place] [address] Dr. Lisa Martinez E. Coli O157 Not Applicable Normal Not Applicable [facility] Comment on above: Performed By: #### B LDCX2 #### [facility] [address] [place] [address] Dr. Lisa Martinez E. histolytica Not detected Normal NOT DETECTED [facility] Comment on above: Performed By: #### B LDCX2 #### [facility] [address] [place] [address] Dr. Lisa Martinez EAEC Not detected Normal NOT DETECTED [facility] Comment on above: Performed By: #### B LDCX2 #### [facility] [address] [place] [address] Dr. Lisa Martinez EIEC Not detected Normal NOT DETECTED [facility] Comment on above: Performed By: #### B LDCX2 #### [facility] [address] [place] [address] Dr. Lisa Martinez EPEC Not detected Normal NOT DETECTED [facility] Comment on above: Performed By: #### B LDCX2 #### [facility] [address] [address] [address] Lisa Martinez ETEC Not detected Normal NOT DETECTED [facility] Comment on above: Performed By: #### B LDCX2 #### [facility] [address] [address] [address] Lisa Perrin Lamblia Not detected Normal NOT DETECTED [facility] Comment on above: Performed By: #### B LDCX2 #### [facility] [address] [address] [address] Lisa MALDONADO CONTROLS PASSED Normal [facility] Comment on above: Performed By: #### B LDCX2 #### [facility] [address] [place] [address] Dr. Lisa PEREZ HEADER GI PANEL BACTERIA Normal [facility] Comment on above: Performed By: #### B LDCX2 #### [facility] [address] [address] [address] Lisa HIRSCH ECOLI GI PANEL DIARRHEAGEN IC E.COLI / SHIGELLA Normal [facility] Comment on above: Performed By: #### B LDCX2 #### [facility] [address] [address] [address] Lisa HIRSCH INFO SEE BELOW Normal [facility] Comment on above: Result Comment: EAEC - Enteroaggregative E. Coli EPEC- Enteropathogenic E. Coli ETEC- Enterotoxigenic E. Coli lt/st STEC- Shigella-like toxin-producing E. Coli stx1/stx2 EIEC- Shigella/Enteroinvasive E. Coli Performed By: #### B LDCX2 #### [facility] [address] [place] [address] Dr. Lisa HIRSCH PARASITES GI PANEL PARASITES Normal [facility] Comment on above: Performed By: #### B LDCX2 #### [facility] [address] [address] [address] Lisa HIRSCH VIRUS GI PANEL VIRUSES Normal [facility] Comment on above: Performed By: #### B LDCX2 #### [facility] [address] [place] [address] Dr. Lisa Martinez Norovirus GI/GII Not detected Normal NOT DETECTED [facility] Comment on above: Performed By: #### B LDCX2 #### [facility] [address] [place] [address] Dr. Lisa Martinez P. Shigelloides Not detected Normal NOT DETECTED [facility] Comment on above: Performed By: #### B LDCX2 #### [facility] [address] [place] [address] Dr. Lisa Martinez Rotavirus A Not detected Normal NOT DETECTED [facility] Comment on above: Performed By: #### B LDCX2 #### [facility] [address] [place] [address] Dr. Lisa Martinez Salmonella Not detected Normal NOT DETECTED [facility] Comment on above: Performed By: #### B LDCX2 #### [facility] [address] [place] [address] Dr. Lisa Martinez Sapovirus Not detected Normal NOT DETECTED [facility] Comment on above: Performed By: #### B LDCX2 #### [facility] [address] [place] [address] Dr. Lisa Martinez STEC Not detected Normal NOT DETECTED [facility] Comment on above: Performed By: #### B LDCX2 #### [facility] [address] [place] [address] Dr. Lisa Martinez Vibrio Not detected Normal NOT DETECTED [facility] Comment on above: Performed By: #### B LDCX2 #### [facility] [address] [place] [address] Dr. Lisa Martinez Vibrio Cholera Not detected Normal NOT DETECTED [facility] Comment on above: Performed By: #### B LDCX2 #### [facility] [address] [place] [address] Dr. Lisa Martinez Y. Enterocolitica Not detected Normal NOT DETECTED [facility] Comment on above: Performed By: #### B LDCX2 #### [facility] [address] [place], [place] [id number] Dr. Lisa Martinez MAGNESIUMon 05-01-2022 Magnesium [Mass/Vol] 2.0 mg/dL Normal 1.8-2.4 [facility] Comment on above: Performed By: #### M G ####[facility] [address] [place] [address]Dr. Lisa Martinez POINT OF CARE GLUCOSEon 04-09 Glucose [Mass/Vol] 184 mg/dL Critically high 74-106 [facility] Comment on above: Performed By: #### U RCX #### [facility] [address] [address] [address] Lisa Martinez Glucose [Mass/Vol] 137 mg/dL Critically high -106 [facility] Comment on above: Result Comment: Foll ow Protocol Performed By: #### C BC #### [facility] [address] [place] [address] Dr. Lisa Martinez Glucose [Mass/Vol] 170 mg/dL Critically high -106 [facility] Comment on above: Result Comment: Foll ow Protocol Performed By: #### P OCGLUC ####[facility] [address] [place] [address]DrIngrid Martinez PROF 14(COMP METB)on 022 Albumin [Mass/Vol] 3.0 g/dL Critically low 3.4-5.0 [facility] Comment on above: Performed By: #### C MP ####[facility] [address] [place] [address]DrIngrid Martinez Albumin/Globulin [Mass ratio] 0.6 {ratio} Normal [facility] Comment on above: Performed By: #### C MP ####[facility] [address] [place] [id number] Martinez ALP [Catalytic activity/Vol] 101 U/L Normal 46-116 [facility] Comment on above: Performed By: #### C MP ####[facility] [address] [place] [address]DrIgnrid Martinez ALT [Catalytic activity/Vol] 16 U/L Normal 14-59 [facility] Comment on above: Performed By: #### C MP ####[facility] [address] [place] [address]Dr. Lisa Martinez Anion gap [Moles/Vol] 9.7 mmol/L Normal [facility] Comment on above: Performed By: #### C MP ####[facility] [address] [place] [address]Dr. Lisa Juan AST [Catalytic activity/Vol] 13 U/L Critically low 15-37 [facility] Comment on above: Performed By: #### C MP ####[facility] [address]okmt[address]qg[address] [place] [address]Dr. Lisa Juan Bilirubin [Mass/Vol] 0.5 mg/dL Normal 0.2-1.0 [facility] Comment on above: Performed By: #### C MP ####[facility] [address] [place] [address]Dr. Lisa Martinez Calcium [Mass/Vol] 8.8 mg/dL Normal 8.5-10.1 [facility] Comment on above: Performed By: #### C MP ####[facility] [address] [place] [address]Dr. Lisa Martinez Chloride [Moles/Vol] 104 mmol/L Normal 98-107 [facility] Comment on above: Performed By: #### C MP ####[facility] [address]eqv[address] [place] [address]Dr. Lisa Martinez CO2 [Moles/Vol] 26.8 mmol/L Normal 21.0-32.0 [facility] Comment on above: Performed By: #### C MP ####[facility] [address]twipsqhcv[address] [place] [address]Dr. Lisa Juan Creatinine [Mass/Vol] 1.51 mg/dL Critically high 0.55-1.02 [facility] Comment on above: Performed By: #### C MP ####[facility] [address]wrq[address] [place] [address]Dr. Lisa Martinez EGFR-AF GUAMANIAN 40 mL/min/1.73m2 Critically low >=60 [facility] Comment on above: Performed By: #### C MP ####[facility] [address] [place] [address]Dr. Lisa Martinez EGFR-NON AF GUAMANIAN 33 mL/min/1.73m2 Critically low >=60 [facility] Comment on above: Performed By: #### C MP ####[facility] [address] [place] [address]Dr. Lisa Martinez Globulin (S) [Mass/Vol] 4.8 g/dL Normal [facility] Comment on above: Performed By: #### C MP ####[facility] [address]mh[address]dh[address] [place] [address]Dr. Lisa Martinez Glucose [Mass/Vol] 177 mg/dL Critically high 74-106 [facility] Comment on above: Performed By: #### C MP ####[facility] [address]fr[address] [place] [address]Dr. Lisa Martinez Potassium [Moles/Vol] 4.5 mmol/L Normal 3.5-5.1 [facility] Comment on above: Performed By: #### C MP ####[facility] [address]we[address] [place] [address]Dr. Lisa Martinez Protein [Mass/Vol] 7.8 g/dL Normal 6.4-8.2 [facility] Comment on above: Performed By: #### C MP ####[facility] [address]jky[address]zp[address] [place] [address]Dr. Lisa Martinez Sodium [Moles/Vol] 136 mmol/L Normal 136-145 [facility] Comment on above: Performed By: #### C MP ####[facility] [address]ibftc[address] [place] [address]Dr. Lisa Martinez Urea nitrogen [Mass/Vol] 28.0 mg/dL Critically high 7.0-18.0 [facility] Comment on above: Performed By: #### C MP ####[facility] [address]fentf[address] [place] [id number]. Lisa Juan Urea nitrogen/Creatinine [Mass ratio] 18.5 mg/mg Normal [facility] Comment on above: Performed By: #### C MP ####[facility] [address]aqye[address] [place] [address]Dr. Lisa Martinez BNPon 04-30-2022 Natriuretic peptide B (Bld) [Mass/Vol] 1752.0 pg/mL Normal <=1,800.0 [facility] Comment on above: Performed By: #### B SENIOR CLINICAL PROJECT MANAGER, BMP #### [facility] [address] [address] [address] Lisa Martinez CBC AUTO DIFFon 04-30-2022 BASO # 0.1 103/ul Normal 0.0-0.1 [facility] Comment on above: Performed By: #### C BC ####[facility] [address] [place] [address]DrIngrid Martinez Basophils/100 WBC (Bld) 0.6 % Normal 0.2-2.0 [facility] Comment on above: Performed By: #### C BC ####[facility] [address] [place], [place] [address]DrIngrid Martinez EO # 0.1 103/ul Normal 0.0-0.7 [facility] Comment on above: Performed By: #### C BC ####[facility] [address] [place], [place] [address]Dr. Lisa Martinez Eosinophils/100 WBC (Bld) 1.2 % Normal 0.9-7.0 [facility] Comment on above: Performed By: #### C BC ####[facility] [address] [place], [place] [address]DrIngrid Martinez Erythrocyte distribution width (RBC) [Ratio] 13.2 % Normal 11.0-15.0 [facility] Comment on above: Performed By: #### C BC ####[facility] [address] [place], [place] [address]DrIngrid Martinez Hematocrit (Bld) [Volume fraction] 43.4 % Normal 36.0-48.0 [facility] Comment on above: Performed By: #### C BC ####[facility] [address] [place], [place] [address]Dr. Lisa Martinez Hemoglobin (Bld) [Mass/Vol] 14.2 g/dL Normal 12.0-16.0 [facility] Comment on above: Performed By: #### C BC ####[facility] [address]res[address] [place] [address]Dr. Lisa Martinez IG # 0.13 10e3/ul Critically high 0.00-0.[address] [facility] Comment on above: Performed By: #### C BC ####[facility] [address] [place] [address]Dr. Lisa Juan IG % 1.6 % Critically high 0.0-0.5 [facility] Comment on above: Performed By: #### C BC ####[facility] [address]yrgn[address] [place] [address]Dr. Lisa Juan LYMPH # 0.8 103/ul Critically low 1.2-3.[address] [facility] Comment on above: Performed By: #### C BC ####[facility] [address]fe[address]cal[address] [place] [address]Dr. Lisa Juan Lymphocytes/100 WBC (Bld) 9.8 % Critically low 20.5-60.0 [facility] Comment on above: Performed By: #### C BC ####[facility] [address]iz[address] [place] [address]Dr. Lisa Martinez MANUAL DIFF REQ NO Normal [facility] Comment on above: Performed By: #### C BC ####[facility] [address] [place], [place] [address]Dr. Lisa Martinez MCH (RBC) [Entitic mass] 30.0 pg Normal 26.7-34.0 [facility] Comment on above: Performed By: #### C BC ####[facility] [address] [place], [place] [address]Dr. Lisa Martinez MCHC (RBC) [Mass/Vol] 32.7 g/dL Normal 29.9-35.2 [facility] Comment on above: Performed By: #### C BC ####[facility] [address] [place], [place] [address]Dr. Lisa Martinez MCV (RBC) [Entitic vol] 91.8 fL Normal 81.0-99.0 [facility] Comment on above: Performed By: #### C BC ####[facility] [address]rt[address] [place] [id number]. Lisa Martinez MONO # 1.2 103/ul Critically high 0.3-0.8 [facility] Comment on above: Performed By: #### C BC ####[facility] [address]ach[address]nea[address] [place] [address]Dr. Lisa Juan Monocytes/100 WBC (Bld) 15.0 % Critically high 1.7-12.0 [facility] Comment on above: Performed By: #### C BC ####[facility] [address]ut[address] [place] [address]Dr. Lisa Martinez NEUT # 5.8 103/ul Normal 1.4-6.5 [facility] Comment on above: Performed By: #### C BC ####[facility] [address]te[address] [place] [address]Dr. Lisa Juan Neutrophils/100 WBC (Bld) 71.8 % Normal 43.0-75.0 [facility] Comment on above: Performed By: #### C BC ####[facility] [address]cpdw[address] [place] [address]Dr. Lisa Juan Platelet mean volume (Bld) [Entitic vol] 10.5 fL Normal 9.5-13.5 [facility] Comment on above: Performed By: #### C BC ####[facility] [address]hwp[address] [place] [address]Dr. Lisa Juan PLT 242 103/ul Normal 150-450 [facility] Comment on above: Performed By: #### C BC ####[facility] [address] [place] [address]Dr. Lisa Juan RBC 4.73 106/ul Normal 4.20-5.40 [facility] Comment on above: Performed By: #### C BC ####[facility] [address] [place] [address]DrIngrid Martinez WBC 8.1 103/ul Normal 4.0-11.0 [facility] Comment on above: Performed By: #### C BC ####[facility] [address] [place] [address] Lisa [address] CT HEAD WO CONon 04-30-2022 [...] NO GROWTH AT 5 DAYS. Normal [facility] Comment on above: Performed By: #### B LDCX2 #### [facility] [address] [address] [address] Lisa Martinez Microscopic examination of blood, culture Culture Observations: NO GROWTH AT 5 DAYS. Normal [facility] Comment on above: Performed By: #### B LDCX1 ####[facility] [address] [place] [address]Dr. Lisa Martinez CULTURE URINEon 04-30-2022 CULTURE URINE Culture Observations : No growth Normal [facility] Comment on above: Performed By: #### U RCX ####[facility] [address]om[address] [place] [address]DrIngrid Martinez Covid-19 PCR (CVDTB)on 04-09 SARS-CoV-2 (COVID-19) [...] for this test is supported by the [place] of Health and Human Service's declaration that [...] used). Performed By: #### C VDTB #### [facility] [address] [place] [address] Dr. Lisa Martinez ER URINE PROFILEon 2 Bilirubin Ql (U) Negative Normal NEGATIVE [facility] Comment on above: Performed By: #### C BC #### [facility] [address] [place] [address] Dr. Lisa Martinez Clarity (U) CLEAR Normal CLEAR [facility] Comment on above: Performed By: #### C BC #### [facility] [address] [place] [address] Dr. Lisa Martinez Color (U) LT. YELLOW Normal YELLOW [facility] Comment on above: Performed By: #### C BC #### [facility] [address] [place] [address] Dr. Lisa Martinez ERUAHD A micrscopic examina tion will be performed if indicated. Normal [facility] Comment on above: Performed By: #### C BC #### [facility] [address] [place] [address] Dr. Lisa Martinez Glucose Ql (U) Negative Normal NEGATIVE [facility] Comment on above: Performed By: #### C BC #### [facility] [address] [place] [address] Dr. Lisa Martinez Hemoglobin Ql (U) Negative Normal NEGATIVE [facility] Comment on above: Performed By: #### C BC #### [facility] [address] [place] [address] Dr. Lisa Martinez Ketones Ql (U) Negative Normal NEGATIVE [facility] Comment on above: Performed By: #### C BC #### [facility] [address] [place] [address] Dr. Lisa Martinez LEUKOCYTES Negative Normal NEGATIVE [facility] Comment on above: Performed By: #### C BC #### [facility] [address] [place] [address] Dr. Lisa Martinez Nitrite Ql (U) Positive Abnormal NEGATIVE [facility] Comment on above: Performed By: #### C BC #### [facility] [address] [place] [address] Dr. Lisa Martinez pH (U) 5.5 [pH] Normal 5-9 [facility] Comment on above: Performed By: #### C BC #### [facility] [address] [place] [address] Dr. Lisa Martinez SPEC GRAVITY 1.030 Abnormal 1.005-<=1.0 25 [facility] Comment on above: Performed By: #### C BC #### [facility] [address] [place] [address] Dr. Lisa Martinez UA PROTEIN Negative Normal NEGATIVE/ TRACE [facility] Comment on above: Performed By: #### C BC #### [facility] [address] [place] [address] Dr. Lisa Martinez UR MICRO IND INDICATED Normal [facility] Comment on above: Performed By: #### C BC #### [facility] [address] [place] [address] Dr. Lisa Martinez Urobilinogen Qn (U) 0.2 {Mike'U}/dL Normal 0.2 - 1. 0 [facility] Comment on above: Performed By: #### C BC #### [facility] [address] [place] [address] Dr. Lisa Martinez GLYCOHEMOGLOBIN A1Con 2021 ADA RECOMMENDATION SEE BELOW Normal [facility] Comment on above: Result Comment: ADA RECOMMENDED LIMIT 4.0 - 6.0 ADA THERAPEUTIC TARGET < 7.0 ACTION SUGGESTED > 7.0 Performed By: #### B SENIOR CLINICAL PROJECT MANAGER, BMP #### [facility] [address] [address] [address] Lisa Martinez Glucose [Mass/Vol] 154 mg/dL Normal [facility] Comment on above: Performed By: #### B SENIOR CLINICAL PROJECT MANAGER, BMP #### [facility] [address] [address] [address] Lisa Martinez HbA1c (Bld) [Mass fraction] 7.0 % Critically high 4.5-6.2 [facility] Comment on above: Performed By: #### B SENIOR CLINICAL PROJECT MANAGER, BMP #### [facility] [address] [place] [address] Dr. Lisa Martinez LACTATE/LACTIC ACIDon 2021 Lactate [Moles/Vol] 1.1 mmol/L Normal 0.4-1.9 [facility] Comment on above: Performed By: #### L ACT ####[facility] [address] [place] [address]Dr. Lisa Martinez LIPASEon 04-30-2022 Lipase [Catalytic activity/Vol] 53.0 U/L Critically low 73.0-393.0 [facility] Comment on above: Performed By: #### B SENIOR CLINICAL PROJECT MANAGER, BMP #### [facility] [address] [place] [address] Dr. Lisa Martinez LIVER PROFILEon 04-30-2022 Albumin [Mass/Vol] 3.4 g/dL Normal 3.4-5.0 [facility] Comment on above: Performed By: #### U RCX #### [facility] [address] [place] [address] Dr. Lisa Martinez Albumin/Globulin [Mass ratio] 0.7 {ratio} Normal [facility] Comment on above: Performed By: #### U RCX #### [facility] [address] [place] [address] Dr. Lisa Martinez ALP [Catalytic activity/Vol] 110 U/L Normal 46-116 [facility] Comment on above: Performed By: #### U RCX #### [facility] [address] [address] [address] Lisa Martinez ALT [Catalytic activity/Vol] 20 U/L Normal 14-59 [facility] Comment on above: Performed By: #### U RCX #### [facility] [address] [address] [address] Lisa Martinez AST [Catalytic activity/Vol] 16 U/L Normal 15-37 [facility] Comment on above: Performed By: #### U RCX #### [facility] [address] [address] [address] Lisa Martinez BILI, CONJUGATED 0.2 mg/dL Normal 0.0-0.2 [facility] Comment on above: Performed By: #### U RCX #### [facility] [address] [place] [address] Dr. Lisa Martinez Bilirubin [Mass/Vol] 0.7 mg/dL Normal 0.2-1.0 [facility] Comment on above: Performed By: #### U RCX #### [facility] [address] [place] [address] Dr. Lisa Martinez Globulin (S) [Mass/Vol] 5.0 g/dL Normal [facility] Comment on above: Performed By: #### U RCX #### [facility] [address] [place] [address] Dr. Lisa Martinez Protein [Mass/Vol] 8.4 g/dL Critically high 6.4-8.2 [facility] Comment on above: Performed By: #### U RCX #### [facility] [address] [place] [address] Dr. Lisa Martinez POINT OF CARE GLUCOSEon 10-2 Glucose [Mass/Vol] 203 mg/dL Critically high 74-106 [facility] Comment on above: Performed By: #### B SENIOR CLINICAL PROJECT MANAGER, BMP #### [facility] [address] [place] [address] Dr. Lisa Martinez Glucose [Mass/Vol] 174 mg/dL Critically high 74-106 [facility] Comment on above: Performed By: #### C BC #### [facility] [address] [address] [address] Lisa Martinez Glucose [Mass/Vol] 149 mg/dL Critically high 74-106 [facility] Comment on above: Performed By: #### B LDCX2 #### [facility] [address] [place] [address] Dr. Lisa Martinez PROF CHEM 8 (BAS METB)on Anion gap [Moles/Vol] 15.3 mmol/L Normal [facility] Comment on above: Performed By: #### C BC #### [facility] [address] [address] [address] Lisa Martinez Calcium [Mass/Vol] 9.1 mg/dL Normal 8.5-10.1 [facility] Comment on above: Performed By: #### C BC #### [facility] [address] [place] [address] Dr. Lisa Martinez Chloride [Moles/Vol] 98 mmol/L Normal 98-107 [facility] Comment on above: Performed By: #### C BC #### [facility] [address] [place] [address] Dr. Lisa Martinez CO2 [Moles/Vol] 24.4 mmol/L Normal 21.0-32.0 [facility] Comment on above: Performed By: #### C BC #### [facility] [address] [place] [address] Dr. Lisa Martinez Creatinine [Mass/Vol] 1.44 mg/dL Critically high 0.55-1.02 [facility] Comment on above: Performed By: #### C BC #### [facility] [address] [place] [address] Dr. Lisa Martinez EGFR-AF GUAMANIAN 42 mL/min/1.73m2 Critically low >=60 [facility] Comment on above: Performed By: #### C BC #### [facility] [address] [place] [address] Dr. Lisa Martinez EGFR-NON AF GUAMANIAN 35 mL/min/1.73m2 Critically low >=60 [facility] Comment on above: Performed By: #### C BC #### [facility] [address] [address] [address] Lisa Martinez Glucose [Mass/Vol] 225 mg/dL Critically high 74-106 [facility] Comment on above: Performed By: #### C BC #### [facility] [address] [address] [address] Lisa Martinez Potassium [Moles/Vol] 4.7 mmol/L Normal 3.5-5.1 [facility] Comment on above: Performed By: #### C BC #### [facility] [address] [address] [address] Lisa Martinez Sodium [Moles/Vol] 133 mmol/L Critically low 136-145 [facility] Comment on above: Performed By: #### C BC #### [facility] [address] [address] [address] Lisa Martinez Urea nitrogen [Mass/Vol] 37.0 mg/dL Critically high 7.0-18.0 [facility] Comment on above: Performed By: #### C BC #### [facility] [address] [address] [address] Lisa Martinez Urea nitrogen/Creatinine [Mass ratio] 25.7 mg/mg Normal [facility] Comment on above: Performed By: #### C BC #### [facility] [address] [address] [address] Lisa Martinez PROTIMEon 04-30-2022 INR Coag (PPP) [Relative time] 1.02 {INR} Normal [facility] Comment on above: Performed By: #### K U #### [facility] [address] [address] [address] Lisa Martinez INR GUIDELINES SEE BELOW Normal [facility] Comment on above: Result Comment: ANTONY RED INR: 2.0 - 3.0 CONDITIONS NOT LISTED BELOW 2.5 - 3.5 FOR PROSTHETIC HEART VALVE REPLACEMENT 2.5 - 3.5 RECURRENT THROMBOSIS Performed By: #### K U #### [facility] [address] [address] [address] Lisa Martinez PT Coag (PPP) [Time] 11.0 s Normal 9.0-11.6 [facility] Comment on above: Performed By: #### K U #### [facility] [address] [place] [address] Dr. Lisa Martinez PTTon 04-30-2022 aPTT Coag (Bld) [Time] 27.5 s Normal 22.3-36.2 [facility] Comment on above: Performed By: #### K U #### [facility] [address] [place] [address] Dr. Lisa Martinez TROPONIN, HIGH SENSITIVITYon 04-30-2022 HSTROP 20.0 pg/mL Normal 4.0-51.3 [facility] Comment on above: Result Comment: CUT- OFF POINTS HAVE BEEN ESTABLISHED BASED ON THE FOURTH UNIVERSAL DEFINITIONS OF MYOCARDIAL INFARCTION. THE UPPER REFERENCE LIMIT (URL) OF TROPONIN, DEFINED THE 99TH PERCENTILE OF cTnI DISTRIBUTION IN A REFERENCE POPULATION, HAS BEEN CONFIRMED THE DECISION THRESHOLD FOR HI DIAGNOSIS. Performed By: #### U RCX #### [facility] [address] [place] [address] Dr. Lisa Martinez URINE MICROSCOPIC ONLYon BACTERIA MODERATE Abnormal NONE SEEN [facility] Comment on above: Performed By: #### K U #### [facility] [address] [place] [address] Dr. Lisa Martinez Bacteria identified Cx Nom (U) INDICATED Normal [facility] Comment on above: Performed By: #### K U #### [facility] [address] [place] [address] Dr. Lisa Martinez CAST NONE SEEN Normal NONE SEEN [facility] Comment on above: Performed By: #### K U #### [facility] [address] [place] [address] Dr. Lisa Martinez Crystals LM Nom (Urine sed) NONE SEEN Normal NONE SEEN [facility] Comment on above: Performed By: #### K U #### [facility] [address] [place] [address] Dr. Lisa Martinez Epithelial cells LM Ql (Urine sed) RARE Normal NONE SEEN /RARE [facility] Comment on above: Performed By: #### K U #### [facility] [address] [address] [address] Lisa Martinez MUCOUS NONE SEEN Normal NONE SEEN [facility] Comment on above: Performed By: #### K U #### [facility] [address] [address] [address] Lisa Martinez RBC NONE SEEN Abnormal 0-2 [facility] Comment on above: Performed By: #### K U #### [facility] [address] [place] [address] Dr. Lisa Martinez WBC 0-2 Abnormal NONE SEEN [facility] Comment on above: Performed By: #### K U #### [facility] [address] [place] [address] Dr. Lisa Martinez XR CHEST 1 Von [...] T3 2.10 pg/mlL Critically low 2.18-3.98 [facility] Comment on above: Performed By: #### C VDTBH #### [facility] [address] [place] [address] Dr. Lisa Martinez FREE T4on 04-12-2022 Free T4 [Mass/Vol] 0.88 ng/dL Normal 0.76-1.46 [facility] Comment on above: Performed By: #### B LDCX2 #### [facility] [address] [place] [address] Dr. Lisa Martinez TSHon 04-12-2022 TSH 5.007 uIU/mL Critically high 0.358-3.740 [facility] Comment on above: Performed By: #### C VDTBH #### [facility] [address] [place] [address] Dr. Lisa Martinez US THYROIDon 04-12-2022 US [...] 02-12-2022 BASO # 0.1 103/ul Normal 0.0-0.1 [facility] Comment on above: Performed By: #### K U #### [facility] [address] [place] [address] Dr. Lisa Martinez Basophils/100 WBC (Bld) 0.7 % Normal 0.2-2.0 [facility] Comment on above: Performed By: #### K U #### [facility] [address] [place] [address] Dr. Lisa Martinez EO # 0.3 103/ul Normal 0.0-0.7 [facility] Comment on above: Performed By: #### K U #### [facility] [address] [place] [address] Dr. Lisa Martinez Eosinophils/100 WBC (Bld) 3.3 % Normal 0.9-7.0 [facility] Comment on above: Performed By: #### K U #### [facility] [address] [address] [address] Lisa Martinez Erythrocyte distribution width (RBC) [Ratio] 13.0 % Normal 11.0-15.0 [facility] Comment on above: Performed By: #### K U #### [facility] [address] [address] [address] Lisa Martinez Hematocrit (Bld) [Volume fraction] 34.6 % Critically low 36.0-48.0 [facility] Comment on above: Performed By: #### K U #### [facility] [address] [place] [address] Dr. Lisa Martinez Hemoglobin (Bld) [Mass/Vol] 11.1 g/dL Critically low 12.0-16.0 [facility] Comment on above: Performed By: #### K U #### [facility] [address] [place] [address] Dr. Lisa Martinez IG # 0.04 10e3/ul Critically high 0.00-0.03 [facility] Comment on above: Performed By: #### K U #### [facility] [address] [place] [address] Dr. Lisa Martinez IG % 0.4 % Normal 0.0-0.5 [facility] Comment on above: Performed By: #### K U #### [facility] [address] [place] [address] Dr. Lisa Martinez LYMPH # 1.0 103/ul Critically low 1.2-3.[address] [facility] Comment on above: Performed By: #### K U #### [facility] [address] [place] [address] Dr. Lisa Martinez Lymphocytes/100 WBC (Bld) 10.6 % Critically low 20.5-60.0 [facility] Comment on above: Performed By: #### K U #### [facility] [address] [place] [address] Dr. Lisa Martinez MANUAL DIFF REQ NO Normal [facility] Comment on above: Performed By: #### K U #### [facility] [address] [place], [place] [id number] Dr. Lisa Martinez MCH (RBC) [Entitic mass] 31.3 pg Normal 26.7-34.0 [facility] Comment on above: Performed By: #### K U #### [facility] [address] [place] [address] Dr. Lisa Martinez MCHC (RBC) [Mass/Vol] 32.1 g/dL Normal 29.9-35.2 [facility] Comment on above: Performed By: #### K U #### [facility] [address] [place] [address] Dr. Lisa Martinez MCV (RBC) [Entitic vol] 97.5 fL Normal 81.0-99.0 [facility] Comment on above: Performed By: #### K U #### [facility] [address] [place] [address] Dr. Lisa Martinez MONO # 0.9 103/ul Critically high 0.3-0.8 [facility] Comment on above: Performed By: #### K U #### [facility] [address] [place] [address] Dr. Lisa Martinez Monocytes/100 WBC (Bld) 9.5 % Normal 1.7-12.0 [facility] Comment on above: Performed By: #### K U #### [facility] [address] [place] [address] Dr. Lisa Martinez NEUT # 6.9 103/ul Critically high 1.4-6.5 [facility] Comment on above: Performed By: #### K U #### [facility] [address] [place] [address] Dr. Lisa Martinez Neutrophils/100 WBC (Bld) 75.5 % Critically high 43.0-75.0 [facility] Comment on above: Performed By: #### K U #### [facility] [address] [place] [address] Dr. Lisa Martinez Platelet mean volume (Bld) [Entitic vol] 9.9 fL Normal 9.5-13.5 [facility] Comment on above: Performed By: #### K U #### [facility] [address] [address] [address] Lisa Martinez PLT 255 103/ul Normal 150-450 [facility] Comment on above: Performed By: #### K U #### [facility] [address] [address] [address] Lisa Martinez RBC 3.55 106/ul Critically low 4.20-5.40 [facility] Comment on above: Performed By: #### K U #### [facility] [address] [address] [address] Lisa Martinez WBC 9.2 103/ul Normal 4.0-11.0 [facility] Comment on above: Performed By: #### K U #### [facility] [address] [address] [address] Lisa Martinez CRPon 02-12-2022 CRP 0.7 mg/dL Normal <=1.0 [facility] Comment on above: Performed By: #### B SENIOR CLINICAL PROJECT MANAGER, BMP #### [facility] [address] [address] [address] Lisa Martinez SED RATE WESTERGRENon 2021 SED RATE 56 mm/hr Critically high <=30 [facility] Comment on above: Performed By: #### S EDR ####[facility] [address] [address]Dr. Lisa Martinez URIC ACID SERUMon 02-12-2022 Urate [Mass/Vol] 9.2 mg/dL Critically high 2.6-6.0 [facility] Comment on above: Performed By: #### B SENIOR CLINICAL PROJECT MANAGER, BMP #### [facility] [address] [address] [address] Lisa Martinez XR FOOT LT MIN [...] ROSINA MENENDEZ Date: 2022-02-12 13:01 Normal [facility] HEMOGRAM AND PLATELon 2021 Hematocrit (Bld) [Volume fraction] 35.7 % Critically low 36.0-48.0 [facility] Comment on above: Performed By: #### U RCX #### [facility] [address] [place] [address] Dr. Lisa Martinez Hemoglobin (Bld) [Mass/Vol] 11.7 g/dL Critically low 12.0-16.0 [facility] Comment on above: Performed By: #### U RCX #### [facility] [address] [place] [address] Dr. Lisa Martinez MCH (RBC) [Entitic mass] 31.5 pg Normal 26.7-34.0 [facility] Comment on above: Performed By: #### U RCX #### [facility] [address] [place] [address] Dr. Lisa Martinez MCHC (RBC) [Mass/Vol] 32.8 g/dL Normal 29.9-35.2 [facility] Comment on above: Performed By: #### U RCX #### [facility] [address] [place] [address] Dr. Lisa Martinez MCV (RBC) [Entitic vol] 96.2 fL Normal 81.0-99.0 [facility] Comment on above: Performed By: #### U RCX #### [facility] [address] [place] [address] Dr. Lisa Martinez PLT 268 103/ul Normal 150-450 [facility] Comment on above: Performed By: #### U RCX #### [facility] [address] [place] [address] Dr. Lisa Martinez RBC 3.71 106/ul Critically low 4.20-5.40 [facility] Comment on above: Performed By: #### U RCX #### [facility] [address] [place] [address] Dr. Lisa Martinez WBC 9.3 103/ul Normal 4.0-11.0 [facility] Comment on above: Performed By: #### U RCX #### [facility] [address] [address] [address] Lisa Martinez PROF CHEM 8 (BAS METB)on Anion gap [Moles/Vol] 11.2 mmol/L Normal [facility] Comment on above: Performed By: #### C VDTBH #### [facility] [address] [address] [address] Lisa Martinez Calcium [Mass/Vol] 9.1 mg/dL Normal 8.5-10.1 [facility] Comment on above: Performed By: #### C VDTBH #### [facility] [address] [address] [address] Lisa Martinez Chloride [Moles/Vol] 104 mmol/L Normal 98-107 [facility] Comment on above: Performed By: #### C VDTBH #### [facility] [address] [address] [address] Lisa Martinez CO2 [Moles/Vol] 30.6 mmol/L Normal 21.0-32.0 [facility] Comment on above: Performed By: #### C VDTBH #### [facility] [address] [address] [address] Lisa Martinez Creatinine [Mass/Vol] 1.64 mg/dL Critically high 0.55-1.02 [facility] Comment on above: Performed By: #### C VDTBH #### [facility] [address] [address] [address] Lisa Martinez EGFR-AF GUAMANIAN 36 mL/min/1.73m2 Critically low >=60 [facility] Comment on above: Performed By: #### C VDTBH #### [facility] [address] [address] [address] Lisa Martinez EGFR-NON AF GUAMANIAN 30 mL/min/1.73m2 Critically low >=60 [facility] Comment on above: Performed By: #### C VDTBH #### [facility] [address] [address] [address] Lisa Martinez Glucose [Mass/Vol] 61 mg/dL Critically low 74-106 [facility] Comment on above: Performed By: #### C VDTBH #### [facility] [address] [address] [address] Lisa Martinez Potassium [Moles/Vol] 4.8 mmol/L Normal 3.5-5.1 [facility] Comment on above: Performed By: #### C VDTBH #### [facility] [address] [address] [address] Lisa Martinez Sodium [Moles/Vol] 141 mmol/L Normal 136-145 [facility] Comment on above: Performed By: #### C VDTBH #### [facility] [address] [address] [address] Lisa Martinez Urea nitrogen [Mass/Vol] 34.0 mg/dL Critically high 7.0-18.0 [facility] Comment on above: Performed By: #### C VDTBH #### [facility] [address] [place] [address] Dr. Lisa Martinez Urea nitrogen/Creatinine [Mass ratio] 20.7 mg/mg Normal [facility] Comment on above: Performed By: #### C VDTBH #### [facility] [address] [place] [address] Dr. Lisa Martinez Cardiovascular Lab Reporton 12-21-2021 Cardiovascular Lab Report [facility] Patient Name: Jenni Quinones [facility] MR #: [id number] Physician: Josefina Villanueva Department of [facility] Service Date: 12/20/2021 Division of Birthdate: 1940 Cardiology Room #: Adult Cardiovascular Services [address] [address] Cardiovascular Laboratory Report INDICATION: The patient is [...] the consent. She was brought to the hatchery laborer in a fasting state. The right neck area was prepped and draped in usual fashion. Micropuncture technique and ultrasound guidance were used for access in the right internal jugular vein. A 6-Mozambican x 11 cm sheath was placed. A 6-Mozambican Becker catheter was used for right heart [...] Nova M.D. Date Trans: 12/21/2021 06:38 A/kali [id number] cc: Jasvir León M.D. [address] [place] [address] Covid-19 PCR ([facility] [facility] [employer])on 12-07 SARS-CoV-2 (COVID-19) RNA RACIEL+probe Ql (Unsp [...] for this test is supported by the Spare [employer] Clerk of Health and Human Service's (HHS's) declaration [...] U #### [facility] [address] [address] [address] Lisa Martinez HEMOGRAM AND PLATELon 2021 Hematocrit (Bld) [Volume fraction] 37.7 % Normal 36.0-48.0 [facility] Comment on above: Performed By: #### H H ####[facility] [address] [address]Dr. Lisa Martinez Hemoglobin (Bld) [Mass/Vol] 11.8 g/dL Critically low 12.0-16.0 [facility] Comment on above: Performed By: #### H H ####[facility] [address] [address]Dr. Lisa Martinez MCH (RBC) [Entitic mass] 30.7 pg Normal 26.7-34.0 [facility] Comment on above: Performed By: #### H H ####[facility] [address] [address]Dr. Lisa Martinez MCHC (RBC) [Mass/Vol] 31.3 g/dL Normal 29.9-35.2 [facility] Comment on above: Performed By: #### H H ####[facility] [address] [address]Dr. Lisa Martinez MCV (RBC) [Entitic vol] 98.2 fL Normal 81.0-99.0 [facility] Comment on above: Performed By: #### H H ####[facility] [address] [address]Dr. Lisa Martinez PLT 238 103/ul Normal 150-450 [facility] Comment on above: Performed By: #### H H ####[facility] [address] [place], [place] [address]Dr. Lisa Martinez RBC 3.84 106/ul Critically low 4.20-5.40 [facility] Comment on above: Performed By: #### H H ####[facility] [address] [place], [place] [address]DrIngrid Martinez WBC 8.6 103/ul Normal 4.0-11.0 [facility] Comment on above: Performed By: #### H H ####[facility] [address] [place], [place] [address]DrIngrid Martinez PROF CHEM 8 (BAS METB)on Anion gap [Moles/Vol] 13.7 mmol/L Normal [facility] Comment on above: Performed By: #### B MP ####[facility] [address] [address]DrIngrid Martinez Calcium [Mass/Vol] 9.1 mg/dL Normal 8.5-10.1 [facility] Comment on above: Performed By: #### B MP ####[facility] [address] [place], [place] [address]DrIngrid Martinez Chloride [Moles/Vol] 107 mmol/L Normal 98-107 [facility] Comment on above: Performed By: #### B MP ####[facility] [address] [place], [place] [address]DrIngrid Martinez CO2 [Moles/Vol] 26.9 mmol/L Normal 21.0-32.0 [facility] Comment on above: Performed By: #### B MP ####[facility] [address] [address]Dr. Lisa Martinez Creatinine [Mass/Vol] 1.48 mg/dL Critically high 0.55-1.02 [facility] Comment on above: Performed By: #### B MP ####[facility] [address] [place], [place] [address]Dr. Lisa Martinez EGFR-AF GUAMANIAN 41 mL/min/1.73m2 Critically low >=60 [facility] Comment on above: Performed By: #### B MP ####[facility] [address] [place], [place] [address]Dr. Lisa Martinez EGFR-NON AF GUAMANIAN 34 mL/min/1.73m2 Critically low >=60 [facility] Comment on above: Performed By: #### B MP ####[facility] [address] [place], [place] [address]Dr. Lisa Martinez Glucose [Mass/Vol] 161 mg/dL Critically high 74-106 [facility] Comment on above: Performed By: #### B MP ####[facility] [address] [place], [place] [address]Dr. Lisa Martinez Potassium [Moles/Vol] 4.6 mmol/L Normal 3.5-5.1 [facility] Comment on above: Performed By: #### B MP ####[facility] [address] [place], [place] [address]Dr. Lisa Martinez Sodium [Moles/Vol] 143 mmol/L Normal 136-145 [facility] Comment on above: Performed By: #### B MP ####[facility] [address] [place], [place] [address]Dr. Lisa Martinez Urea nitrogen [Mass/Vol] 35.0 mg/dL Critically high 7.0-18.0 [facility] Comment on above: Performed By: #### B MP ####[facility] [address] [place], [place] [address]Dr. Lisa Martinez Urea nitrogen/Creatinine [Mass ratio] 23.6 mg/mg Normal [facility] Comment on above: Performed By: #### B MP ####[facility] [address] [place], [place] [address]Ys. Lisa Martinez Comprehensive Metabolic Pane yesica 08-17-2021 Albumin [Mass/Vol] 4.4 g/dL Normal 3.6-5.1 [facility] Comment on above: Performed By: #### C MP #### [facility] [address], [place] [id number] Albumin/Globulin [Mass ratio] 1.4 {ratio} Normal 1.0-2.5 [facility] Comment on above: Performed By: #### C MP #### [facility] [address], [place] [id number] ALP [Catalytic activity/Vol] 89 U/L Normal 35-119 [facility] Comment on above: Performed By: #### C MP #### [facility] [address], [place] [id number] ALT [Catalytic activity/Vol] 13 U/L Normal 6-33 [facility] Comment on above: Result Comment: 06/08 Female reference range changed. Performed By: #### C MP #### [facility] [address], [place] [id number] Anion gap [Moles/Vol] 18 mmol/L Normal 12-20 [facility] Comment on above: Result Comment: Effe ctive 07/14/2019 reference range changed. Performed By: #### C MP #### [facility] [address], [place] [id number] AST [Catalytic activity/Vol] 20 U/L Normal 9-34 [facility] Comment on above: Performed By: #### C MP #### [facility] [address], [place] [id number] Bilirubin [Mass/Vol] 0.34 mg/dL Normal 0.30-1.20 [facility] Comment on above: Performed By: #### C MP #### [facility] [address], [place] [id number] BUN/CREA 28 Ratio High 6-22 [facility] Comment on above: Performed By: #### C MP #### [facility] [address], [place] [id number] Calcium [Mass/Vol] 9.8 mg/dL Normal 8.6-10.2 [employer] [facility] Comment on above: Performed By: #### C MP #### [facility] [address], [place] [id number] Chloride [Moles/Vol] 106 mmol/L Normal 98-107 [facility] Comment on above: Performed By: #### C MP #### [facility] [address], [place] [id number] CO2 [Moles/Vol] 23 mmol/L Normal 20-31 [facility] Comment on above: Performed By: #### C MP #### [facility] [address], [place] [id number] Creatinine [Mass/Vol] 1.1 mg/dL Normal 0.6-1.4 [facility] Comment on above: Performed By: #### C MP #### [facility] [address], [place] [id number] eGFRAA 59 mL/min/1.73m2 Low >60 [facility] Comment on above: Performed By: #### C MP #### [facility] [address], [place] [id number] eGFRNAA 49 mL/min/1.73m2 Low >60 [facility] Comment on above: Performed By: #### C MP #### [facility] [address], [place] [id number] Globulin (S) [Mass/Vol] 3.2 g/dL Normal 1.9-3.7 [facility] Comment on above: Performed By: #### C MP #### [facility] [address], [place] [id number] Glucose [Mass/Vol] 51 mg/dL Low 65-99 [employer] [facility] Comment on above: Result Comment: For FASTING Glucose --- ADA reference ranges: Normal 65-99 mg/dl Prediabetes 100-125 Diabetes >/= 126 Performed By: #### C MP #### [facility] [address], [place] [id number] Potassium [Moles/Vol] 4.5 mmol/L Normal 3.5-5.5 [facility] Comment on above: Performed By: #### C MP #### [facility] [address], [place] [id number] Protein [Mass/Vol] 7.6 g/dL Normal 6.1-8.1 [facility] Comment on above: Performed By: #### C MP #### [facility] [address], [place] [id number] Sodium [Moles/Vol] 143 mmol/L Normal 135-146 [facility] Comment on above: Performed By: #### C MP #### [facility] [address], [place] [id number] Urea nitrogen [Mass/Vol] 31 mg/dL High 7-25 [facility] Comment on above: Performed By: #### C MP #### [facility] [address], [place] [id number] Complete Blood Counton 08-03 Erythrocyte distribution width (RBC) [Ratio] 13.2 % Normal 11.0-15.0 [facility] Comment on above: Performed By: #### C BC, TSH, FT3, FT4, CMP #### [facility] [address], [place] [id number] Hematocrit (Bld) [Volume fraction] 36.6 % Normal 35.0-47.0 [facility] Comment on above: Performed By: #### C BC, TSH, FT3, FT4, CMP #### [facility] [address], [place] [id number] Hemoglobin (Bld) [Mass/Vol] 11.4 g/dL Low 11.6-15.5 [facility] Comment on above: Performed By: #### C BC, TSH, FT3, FT4, CMP #### [facility] [address], [place] [id number] MCH (RBC) [Entitic mass] 31.1 pg Normal 27.0-33.0 [facility] Comment on above: Performed By: #### C BC, TSH, FT3, FT4, CMP #### [facility] [address], [place] [id number] MCHC (RBC) [Mass/Vol] 31.1 g/dL Low 32.0-36.0 [facility] Comment on above: Performed By: #### C BC, TSH, FT3, FT4, CMP #### [facility] [address], [place] [id number] MCV (RBC) [Entitic vol] 100 fL Normal 80-100 [facility] Comment on above: Performed By: #### C BC, TSH, FT3, FT4, CMP #### [facility] [address], [place] [id number] Platelet mean volume (Bld) [Entitic vol] 10.10 fL Normal 7.50-12.50 [facility] Comment on above: Performed By: #### C BC, TSH, FT3, FT4, CMP #### [facility] [address], [place] [id number] Platelets (Bld) [#/Vol] 245 10*3/uL Normal 140-400 [facility] Comment on above: Performed By: #### C BC, TSH, FT3, FT4, CMP #### [facility] [address], [place] [id number] RBC (Bld) [#/Vol] 3.66 10*6/uL Low 3.90-5.20 [facility] Comment on above: Performed By: #### C BC, TSH, FT3, FT4, CMP #### [facility] [address], [place] [id number] RDW-SD 48.1 fL Normal 37.0-50.0 [facility] Comment on above: Performed By: #### C BC, TSH, FT3, FT4, CMP #### [facility] [address], [place] [id number] WBC (Bld) [#/Vol] 8.7 10*3/uL Normal 3.8-11.0 [place] [employer] Comment on above: Performed By: #### C BC, TSH, FT3, FT4, CMP #### [facility] [address] [place], [place] [id number] Comprehensive Metabolic Pane yesica 08-03-2021 Albumin [Mass/Vol] 3.9 g/dL Normal 3.6-5.1 [place] [employer] Comment on above: Performed By: #### C BC, TSH, FT3, FT4, CMP #### [facility] [address], [place] [id number] Albumin/Globulin [Mass ratio] 1.1 {ratio} Normal 1.0-2.5 [facility] Comment on above: Performed By: #### C BC, TSH, FT3, FT4, CMP #### [facility] [address], [place] [id number] ALP [Catalytic activity/Vol] 105 U/L Normal 35-119 [facility] Comment on above: Performed By: #### C BC, TSH, FT3, FT4, CMP #### [facility] [address], [place] [id number] ALT [Catalytic activity/Vol] 10 U/L Normal 6-33 [facility] Comment on above: Result Comment: 06/08 Female reference range changed. Performed By: #### C BC, TSH, FT3, FT4, CMP #### [facility] [address], [place] [id number] Anion gap [Moles/Vol] 20 mmol/L Normal 12-20 [facility] Specialist Comment on above: Result Comment: Effe ctive 07/14/2019 reference range changed. Performed By: #### C BC, TSH, FT3, FT4, CMP #### [facility] [address] [facility] [place] [id number] AST [Catalytic activity/Vol] 19 U/L Normal 9-34 [facility] Comment on above: Performed By: #### C BC, TSH, FT3, FT4, CMP #### [facility] [address], [place] [id number] BUN/CREA 24 Ratio High 6-22 [facility] Ad[employer] Specialist Comment on above: Performed By: #### C BC, TSH, FT3, FT4, CMP #### [facility] [address], [place] [id number] Calcium [Mass/Vol] 9.6 mg/dL Normal 8.6-10.2 [facility] Comment on above: Performed By: #### C BC, TSH, FT3, FT4, CMP #### [facility] [address], [place] [id number] Chloride [Moles/Vol] 106 mmol/L Normal 98-107 [facility] Comment on above: Performed By: #### C BC, TSH, FT3, FT4, CMP #### [facility] [address], [place] [id number] CO2 [Moles/Vol] 21 mmol/L Normal 20-31 [facility] Comment on above: Performed By: #### C BC, TSH, FT3, FT4, CMP #### [facility] [address], [place] [id number] Creatinine [Mass/Vol] 2.6 mg/dL High 0.6-1.4 [facility] Comment on above: Performed By: #### C BC, TSH, FT3, FT4, CMP #### [facility] [address], [place] [id number] eGFRAA 22 mL/min/1.73m2 Low >60 [facility] Comment on above: Performed By: #### C BC, TSH, FT3, FT4, CMP #### [facility] [address], [place] [id number] eGFRNAA 18 mL/min/1.73m2 Low >60 [facility] Comment on above: Performed By: #### C BC, TSH, FT3, FT4, CMP #### [facility] [address], [place] [id number] Globulin (S) [Mass/Vol] 3.4 g/dL Normal 1.9-3.7 [facility] Comment on above: Performed By: #### C BC, TSH, FT3, FT4, CMP #### [facility] [address], [place] [id number] Glucose [Mass/Vol] 93 mg/dL Normal 65-99 [place] [facility] [place] [employer] Comment on above: Result Comment: For FASTING Glucose --- ADA reference ranges: Normal 65-99 mg/dl Prediabetes 100-125 Diabetes >/= 126 Performed By: #### C BC, TSH, FT3, FT4, CMP #### [facility] [address], [place] [id number] Potassium [Moles/Vol] 6.9 mmol/L Critically high 3.5-5.5 [facility] Ad[employer] Specialist Comment on above: Result Comment: Repo rt given to Dr León (Ragini) Performed By: #### C BC, TSH, FT3, FT4, CMP #### [facility] [address], [place] [id number] Protein [Mass/Vol] 7.3 g/dL Normal 6.1-8.1 [place] [employer] Comment on above: Performed By: #### C BC, TSH, FT3, FT4, CMP #### [facility] [address], [place] [id number] Sodium [Moles/Vol] 139 mmol/L Normal 135-146 [facility] [place] [employer] Comment on above: Performed By: #### C BC, TSH, FT3, FT4, CMP #### [facility] [address], [place] [id number] TBIL <0.3 Normal [facility] Ad[employer] Specialist Comment on above: Performed By: #### C BC, TSH, FT3, FT4, CMP #### [facility] [address], [place] [id number] Urea nitrogen [Mass/Vol] 62 mg/dL High 7-25 [facility] Ad[employer] Specialist Comment on above: Performed By: #### C BC, TSH, FT3, FT4, CMP #### [facility] [address], [place] [id number] Free T3on 08-03-2021 FT3 2.05 pg/mL Normal 2.00-4.40 [facility] Ad[employer] Specialist Comment on above: Performed By: #### C BC, TSH, FT3, FT4, CMP #### [facility] [address], [place] [id number] Free T4on 08-03-2021 Free T4 [Mass/Vol] 0.91 ng/dL Normal 0.80-1.80 [facility] Ad[employer] Specialist Comment on above: Performed By: #### C BC, TSH, FT3, FT4, CMP #### [facility] [address], [place] [id number] Q - B-TYPE NATRIURETIC (BNP) on 08-03-2021 Natriuretic peptide B (Bld) [Mass/Vol] 283 pg/mL High <100 [facility] Ad[employer] Specialist Comment on above: Order Comment: [facility] performed at: [employer] [facility], [address], [address] [place], [address], Senior Business Consultant: Boone Calderón MD [facility] Collection Date/Time: [id number] [facility] Results Received Date/Time: [facility] Reported Date/Time: Result Comment: BNP levels increase with age in the general population with the highest values seen in individuals greater than 75 years of age. Reference: J. Am. Priya. Cardiol. 2002; 40:976-982. Performed By: #### [id number] #### [facility] Default [address] [place] [address] TSHon 08-03-2021 TSH 3.450 uIU/mL Normal 0.400-4.500 [facility] Ad[employer] Specialist Comment on above: Performed By: #### C BC, TSH, FT3, FT4, CMP #### [facility] [address], [place] [id number] COVID Quick Testingon 2020 Result Negative [facility] Other Quick Fluon 06-06-2021 FLUAV Ab CF (S) [Titer] Negative [facility] Other FLUBV Ab CF (S) [Titer] Negative [facility] Other Vital Signs Date Time Vital Sign Value Performing Clinician Facility 05-08-2024 11:16-0400 Body height 154.9 cm Jasvir León MD Work Phone: [facility] 05-08-2024 11:16-0400 Body mass index (BMI) [Ratio] 27.78 kg/m2 Jasvir León MD Work Phone: [facility] 05-08-2024 11:16-0400 Body weight 66.68 kg Jasvir León MD Work Phone: [facility] 05-08-2024 11:16-0400 Diastolic blood pressure 70 mm[Hg] Jasvir León MD Work Phone: [facility] 05-08-2024 11:16-0400 Heart rate 58 /min Jasvir León MD Work Phone: [facility] 05-08-2024 11:16-0400 SaO2% (BldA) [Mass fraction] 96 % Jasvir León MD Work Phone: [facility] 05-08-2024 11:16-0400 Systolic blood pressure 128 mm[Hg] Jasvir León MD Work Phone: [facility] 04-25-2024 16:40-0400 Body height 157.48 cm II Jasvir León Work Phone: [facility] 04-25-2024 13:31-0400 Diastolic blood pressure 69 mm[Hg] II Jasvir León Work Phone: [facility] 04-25-2024 13:31-0400 Heart rate 76 /min II Jasvir Lóen Work Phone: [facility] 04-25-2024 13:31-0400 Systolic blood pressure 157 mm[Hg] II Jasvir León Work Phone: [facility] 04-25-2024 12:00-0400 Inhaled oxygen flow rate 3 L/min II Jasvir León Work Phone: [facility] 04-25-2024 08:00-0400 Body temperature 97.7 [degF] II Jasvir León Work Phone: [facility] 04-25-2024 08:00-0400 Respiratory rate 22 /min II Jasvir León Work Phone: [facility] 04-25-2024 08:00-0400 SaO2% (BldA) [Mass fraction] 98 % II Jasvir León Work Phone: [facility] 04-25-2024 02:25-0400 Body weight 75.2 kg II Jasvir León Work Phone: [facility] 08-07-2023 10:53-0500 Diastolic blood pressure 64 mm[Hg] Kd Hines MD Work Phone: [facility] 08-07-2023 10:53-0500 Heart rate 109 /min Kd Hines MD Work Phone: [facility] 08-07-2023 10:53-0500 Respiratory rate 18 /min Kd Hines MD Work Phone: [facility] 08-07-2023 10:53-0500 SaO2% (BldA) [Mass fraction] 90 % Kd Hines MD Work Phone: [facility] 08-07-2023 10:53-0500 Systolic blood pressure 94 mm[Hg] Kd Hines MD Work Phone: [facility] 06-06-2021 12:45-0500 Body height 157.48 cm Mariam Ward Other [facility] Other 06-06-2021 12:45-0500 Body mass index (BMI) [Ratio] 34.75 kg/m2 Mariam Lethantcarlos Other [facility] Other 06-06-2021 12:45-0500 Body temperature 96.8 [degF] Mariam Lethanty Other [facility] Other 06-06-2021 12:45-0500 Body weight 86.18 kg Mariam Lethanty Other [facility] Other 06-06-2021 12:45-0500 Diastolic blood pressure 78 mm[Hg] Mariam Sylvia Other [facility] Other 06-06-2021 12:45-0500 SaO2% (BldA) [Mass fraction] 94 % Mariam Monaentcarlos Other [facility] Other 06-06-2021 12:45-0500 Systolic blood pressure 131 mm[Hg] Mariam Lethantcarlos Other [facility] Other Encounters Encounter Date Encounter Type Care Provider Facility Start: 07-25-2024 End: 07-25-2024 ambulatory [place] Start: 07-22-2024 End: 07-22-2024 Clinisync Result Encounter Generic External Data Provider [facility] Unsolicited Start: 07-22-2024 End: 07-22-2024 Clinisync Result Encounter Generic External Data Provider [facility] External Department Unsolicited Start: 07-11-2024 End: 07-11-2024 ambulatory [facility] Start: 06-26-2024 End: 06-27-2024 Refill Bev Mejia LPN [facility] Comment on above: Spinal stenosis at L 4-L5 level Start: 06-23-2024 End: 06-23-2024 Clinisync Result Encounter Generic External Data Provider [facility] External Department Unsolicited Start: 06-23-2024 End: 06-23-2024 Clinisync Result Encounter Generic External Data Provider [facility] External Department Unsolicited Start: 06-23-2024 End: 06-23-2024 Refill Bev Mejia LPN [facility] Comment on above: Depression with anxi ety; Anxiety Start: 06-11-2024 Evaluation and management of inpatient [place] Start: 06-11-2024 Evaluation and management of inpatient [facility] Start: 06-10-2024 Evaluation and management of inpatient [place] Start: 06-10-2024 End: 06-11-2024 Evaluation and management of inpatient [place] Start: 06-10-2024 End: 06-10-2024 ambulatory [facility] Start: 06-02-2024 End: 06-02-2024 Clinisync Result Encounter Generic External Data Provider [facility] External Department Unsolicited Start: 06-02-2024 End: 06-02-2024 Clinisync Result Encounter Generic External Data Provider [facility] External Department Unsolicited Start: 06-02-2024 End: 06-02-2024 ambulatory [place] Start: [facility]-29[facility] Start: 05-29-2024 End: 05-29-2024 ambulatory [facility] Start: 05-29-2024 End: 05-29-2024 ambulatory [facility] Start: 05-27-2024 End: 05-27-2024 ambulatory [place] Start: 05-26-2024 End: 05-26-2024 Clinisync Result Encounter Generic External Data Provider [facility] External Department Unsolicited Start: 05-26-2024 End: 05-26-2024 Clinisync Result Encounter Generic External Data Provider [facility] External Department Unsolicited Start: 05-13-2024 End: 05-13-2024 ambulatory BRENT [facility] Start: 05-08-2024 End: 05-08-2024 Clementina León MD Work Phone: [facility] Start: 05-08-2024 End: 05-08-2024 Clementina León MD Work Phone: [facility] [...] of inpatient II Jasvir León Work Phone: [facility] Work Phone: Start: 03-17-2024 End: 03-17-2024 Telephone encounter Jasvir León MD Work Phone: [facility] Comment on above: covid Start: 02-18-2024 End: 02-18-2024 ambulatory JASVIR LEÓN Not Available Start: 01-07-2024 End: 01-07-2024 ambulatory [place] Start: 12-26-2023 End: 12-26-2023 ambulatory JASVIR LEÓN Not Available Start: 12-07-2023 End: 12-07-2023 ambulatory [facility] Start: 10-09-2023 End: 10-09-2023 ambulatory SARAH RODRIGUEZ Not Available Start: 08-07-2023 End: 08-07-2023 ambulatory [facility] Start: 08-07-2023 End: 08-07-2023 Subsequent hospital visit by physician Kd Hines MD Work Phone: [facility] Start: 08-02-2023 End: 08-02-2023 ambulatory JASVIR LEÓN Not Available Start: 07-30-2023 End: 07-30-2023 ambulatory DAWOOD ALEXANDRE Not Available Start: 06-28-2023 End: 06-28-2023 ambulatory ODALYS RUSSO Not Available Start: 05-29-2023 End: 05-29-2023 ambulatory [facility] Start: 05-23-2023 End: 05-23-2023 ambulatory JASVIR LEÓN Not Available Start: 05-09-2023 ambulatory JASVIR LEÓN [facility] Start: 05-09-2023 End: 05-09-2023 ambulatory KD HINES [facility] Start: 12-06-2022 ambulatory BRENT ZAIDI Facility :[facility]1 [...] Encounter for preprocedural laboratory examination GRETTA OMALLEY [facility] Start: 12-20-2021 End: 12-21-2021 ambulatory GRETTA OMALLEY Facility:[facility] Start: 12-16-2021 End: 12-17-2021 ambulatory GRETTA OMALLEY Facility:[facility] Start: 12-16-2021 End: 12-17-2021 Encounter for preprocedural laboratory examination GRETTA OMALLEY Facility:[facility] Start: 06-06-2021 End: 06-06-2021 ambulatory Mariam Ward Other [facility] Other Start: 06-06-2021 Office outpatient vi sit 15 minutes Mariam Johannay [facility] [place] Procedures Date Procedure Procedure Detail Performing Clinician Start: 07-22-2024 ALL BASIC METABOLIC PANEL Generic External Data Provider Start: 06-23-2024 ALL CBC WITH AUTO DIFF Generic External Data Provider Start: 06-02-2024 [facility] CMP (CMP) (FOR REMOTE [facility] USE) Generic External Data Provider Start: 05-26-2024 ALL BASIC METABOLIC PANEL Generic External Data Provider Start: 05-26-2024 ALL CBC WITH AUTO DIFF Generic External Data Provider Start: 04-25-2024 CT angiography of thorax II Jasvir León Work Phone: Start: 11-21-2022 Laboratory test resu lt abnormal Abnormal laboratory test Jasvir León MD Work Phone: Plan of Treatment Date Care Activity Detail Author Start: 07-30-2025 Glaucoma screening Diabetes: R etinopathy Screening [facility] Start: 11-19-2024 End: 11-19-2024 Patient encounter procedure 11/19/2024 11:00 AM EDT Office Visit [facility] [address] [place] [id number] Ariel Foss MD [address] [place] [address] [facility] Start: 08-02-2024 Urine screening for protein Diabetes: Urine Protein Screening [facility] Start: 06-09-2024 End: 06-09-2024 Patient encounter procedure 06/09/2024 11:30 AM EST Office Visit [facility] [address] [place] [id number] Jasvir León MD [address] [place] [address] [facility] Start: 05-19-2024 End: 05-19-2024 Patient encounter procedure 05/19/2024 10:45 AM EST Office Visit [facility] [address] [place] [id number] Jasvir León MD [address] [place] [address] [facility] Start: 05-08-2024 End: 05-08-2024 Patient encounter procedure [facility] Comment on above: Arrived Start: 04-25-2024 [facility] Start: 04-25-2024 Radionuclide myocard ial perfusion stress study NM lissy perf SPECT rest & str [facility] Start: 04-25-2024 Catheterization of l eft heart CL *Left Heart Cath (LHC) [facility] Start: 04-25-2024 Hospital admission [facility] Start: 03-27-2024 Hemoglobin A1c measurement Diabetes: Hemoglobin A1C [facility] Start: 03-09-2024 Influenza vaccination Influenza Vacc ine (#1) [facility] Start: 11-14-2023 Urine screening for protein Diabetes: Urine Protein Screening [facility] Start: 08-07-2023 End: 08-07-2023 Njx dx/ther agt pvrt facet jt lmbr/sac 1 level LUMBAR MEDIAL BRANCH BLOCK Lumbar spondylosis 08/07/2023 10:37 AM [facility] Start: 08-07-2023 End: 08-07-2023 Njx dx/ther agt pvrt facet jt lmbr/sac 2nd level LUMBAR MEDIAL BRANCH BLOCK Lumbar spondylosis 08/07/2023 10:37 AM [facility] Start: 06-04-2023 Annual Wellness Visi t (Medicare) Annual Wellness Visit (Medicare) [facility] Start: 1999 Respiratory Syncytia l Virus (RSV) or age 60 yrs+ (1 - 1-dose 60+ series) Respiratory Syncytial Virus (RSV) or age 60 yrs+ (1 - 1-dose 60+ series) [facility] Start: 1958 DTaP/Tdap/Td vaccine (1 - Tdap) DTaP/Tdap/Td vaccine (1 - Tdap) [facility] Start: 1951 Depression Screen Depression Screen [facility] Start: 1949 Lipid panel Lipids [facility] Oxygen therapy [[facility] Data Set] Initiate Oxygen Therapy Protocol Respiratory Care Routine As Needed until discontinued starting 08/07/2023 BRANDO Work Phone: Comment on above: As Needed until disc ontinued starting 08/07/2023 Patient referral [facility] Work Phone: Immunizations Immunization Date Immunization Notes Care Provider [facility] 04-12-2024 pneumococcal polysaccharide vaccine, 23 valent Generic Provider [facility] 04-12-2024 Seasonal trivalent influenza vaccine, adjuvanted, preservative free Generic Provider [facility] 09-11-2023 zoster vaccine recombinant Jasvir León MD Work Phone: [facility] 06-06-2023 zoster vaccine recombinant Jasvir León MD Work Phone: [facility] 05-21-2023 Pfizer Coleman Cap SARS-CoV-2 Vaccination Jasvir León MD Work Phone: [facility] Work Phone: 05-13-2023 Influenza, Seasonal, Quadrivalent, Adjuvanted Jasvir León MD Work Phone: [facility] 05-13-2023 influenza virus vaccine, unspecified formulation Jasvir León MD Work Phone: [facility] 05-16-2021 SARS-CoV-2, Unspecified Lexa León MD Work Phone: [facility] 04-29-2021 influenza, high dose seasonal, preservative-free Jasvir León MD Work Phone: [facility] 04-29-2021 Influenza, Seasonal, Quadrivalent, Adjuvanted Jasvir León MD Work Phone: [facility] 08-29-2020 SARS-CoV-2, Unspecified Lexa León MD Work Phone: [facility] 07-31-2020 SARS-CoV-2, Unspecified Lexa León MD Work Phone: [facility] 03-22-2020 influenza, injectabl e, quadrivalent, preservative free Jasvir León MD Work Phone: [facility] 06-12-2019 zoster vaccine recombinant Jasvir León MD Work Phone: [facility] 03-20-2019 Seasonal trivalent influenza vaccine, adjuvanted, preservative free Jasvir León MD Work Phone: [facility] 03-20-2019 zoster vaccine recombinant Jasvir León MD Work Phone: [facility] 04-22-2018 influenza, high dose seasonal, preservative-free Jasvir León MD Work Phone: [facility] 03-29-2017 influenza, high dose seasonal, preservative-free Jasvir León MD Work Phone: [facility] 08-26-2016 pneumococcal conjuga te vaccine, 13 valent Jasvir León MD Work Phone: [facility] 03-30-2016 influenza, injectabl e, quadrivalent, contains preservative Jasvir León MD Work Phone: [facility] 03-30-2016 influenza, injectabl e, quadrivalent, preservative free Jasvir León MD Work Phone: [facility] 03-25-2015 pneumococcal polysaccharide vaccine, 23 valent Jasvir León MD Work Phone: [facility] 03-25-2015 seasonal influenza, intradermal, preservative free Jasvir León MD Work Phone: [facility] 04-02-2014 seasonal influenza, intradermal, preservative free Jasvir León MD Work Phone: [facility] 03-31-2014 tetanus and diphther ia toxoids, adsorbed, preservative free, for adult use (5 Lf of tetanus toxoid and 2 Lf of diphtheria toxoid) JEWELL León Work Phone: [facility] 03-31-2014 tetanus toxoid, redu seymour diphtheria toxoid, and acellular pertussis vaccine, adsorbed Mariam Ginty Other [facility] Other 09-01-2013 tetanus and diphther ia toxoids, adsorbed, preservative free, for adult use (5 Lf of tetanus toxoid and 2 Lf of diphtheria toxoid) II Jasvir León Work Phone: [facility] 09-01-2013 tetanus toxoid, redu seymour diphtheria toxoid, and acellular pertussis vaccine, adsorbed Mariam Ward Other [facility] Other 03-25-2012 zoster vaccine, live Jasvir León MD Work Phone: [facility] 04-26-2010 pneumococcal polysaccharide vaccine, 23 valent Jasvir León MD Work Phone: [facility] Payers Date Payer Category Payer Self-pay 2022 [employer] others) [id number] 2016 [employer] others) [id number] 2016 [employer] ( [employer] others) FOR LIFE [id number] 2016-Present [address] [place] [address] [id number] 2016 () [id number] .[id number] 2016 [employer] ( and others) [id number] 2004 Medicare [id number] 1959 [employer] ( and others) [id number] 1959 Medicare [id number] 1939 Unknown [id number] 2.16.840.1.907937.3.579.2 .647 1939 Unknown [id number] 2.16.840.1.949098.3.579.2 .593 1939 Unknown [id number] 2.16.840.1.083348.3.579.2 .593 1939 Unknown [id number] 2.16.840.1.311620.3.579.2 .593 1939 Unknown [id number] 2.16.840.1.656262.3.579.2 .593 1939 Unknown [id number] 2.16.840.1.704475.3.579.2 .593 1939 Unknown [id number] 2.16.840.1.436749.3.579.2 .593 1939 Unknown [id number] 2.16.840.1.310298.3.579.2 .593 1939 Unknown [id number] 2.16.840.1.370232.3.579.2 .593 1939 Unknown [id number] 2.16.840.1.090335.3.579.2 .593 1939 Unknown [id number] 2.16.840.1.325678.3.579.2 .593 1939 Unknown [id number] 2.16.840.1.432778.3.579.2 .593 1939 Unknown [id number] 2.16.840.1.505942.3.579.2 .593 1939 Unknown [id number] 2.16.840.1.257961.3.579.2 .593 1939 Unknown [id number] 2.16.840.1.307768.3.579.2 .593 1939 Unknown [id number] 2.16.840.1.884227.3.579.2 .754 1939 Unknown [id number] 2.16.840.1.747664.3.579.2 .754 1939 Unknown [id number] 2.16.840.1.146264.3.579.2 .754 1939 Unknown [id number] 2.16.840.1.650321.3.579.2 .754 1939 Unknown [id number] 2.16.840.1.988299.3.579.2 .1259 1939 Unknown [id number] 2.16.840.1.354765.3.579.2 .125 1939 Unknown [id number] 2.16.840.1.926223.3.579.2 .1259 1939 Unknown [id number] 2.16.840.1.979430.3.579.2 .9 1939 Unknown [id number] 2.16.840.1.343821.3.579.2 .1259 1939 Unknown [id number] 2.16.840.1.056568.3.579.2 .1259 1939 Unknown [id number] 2.16.840.1.454403.3.579.2 .1259 1939 Unknown [id number] 2.16.840.1.717581.3.579.2 .1259 Medicare [id number] 2.16.840.1.727368.19 Unknown [id number] 2.16.840.1.655833.3.579.2 .531 Social History Date Type Detail Facility Start: 05-30-2023 End: 07-10-[address] [facility] Start: 12-11-2022 End: 05-08-2023 Tobacco smoking status DCIS Ex-smoker [facility] Phone: End: 07-09-1996 History of tobacco use Current smoker [facility] Phone: End: 07-09-1996 History of tobacco use Cigarette Smoker [facility] Phone: Start: 12-11-2022 End: 05-08-2023 Tobacco use and exposure Smokeless tobacco non-user [facility] Phone: Start: 05-30-2023 Alcohol intake Ex-drinker (finding) [facility] Phone: Start: 05-30-2023 End: 07-10-2024 History of Social function [facility] Phone: Start: 05-08-2023 Alcohol Comment social [facility] Phone: Start: 1940 Sex Assigned At Not on file [facility] Work Phone: Start: 1940 Sex Assigned At Female F [facility] Start: 04-28-2024 End: 06-11-2024 Alcoholic beverage intake Current drinker of alcohol (finding) [facility] Start: 04-11-2023 Alcohol Comment 1-2 drinks 2-4 times a month,,caffeine intake: 2-3 cups per day [facility] How often do you nee d to have someone help you when you read instructions, pamphlets, or other written material from your doctor or pharmacy [SILS] Never [facility] Within the last year , have you been afraid of your partner or ex-partner? No [facility] Are you now , , , , never or living with a partner? [facility] How often to you hav e a drink containing alcohol? Never [facility] Do you feel stress - tense, restless, nervous, or anxious, or unable to sleep at night because your mind is troubled all the time - these days [OSQ] Only a little [facility] (I/We) worried wheth er (my/our) food would run out before (I/we) got money to buy more. Never true [facility] Medical Equipment Procedure Code Equipment Code Equipment Origin al Text Equipment Identifier Dates Kyphon Tim [employer] [id number] Start: 05-09-2023 Comment on above: Description: T12 Ref# [id number] by In Vitro route [id number] 1 each by Other route in the morning and 1 each in the evening and 1 each before bedtime. Use as instructed. [id number] Start: 06-29-2023 End: 06-28-2024 Goals Date Patient Goal Desired Activity /State Clinical Notes 06-06-2021 to 07-25-2024 Jasvir León MD - 05/08/2024 11:15 AM EDTTelephone Encounter - ZOEY An - 04/29/2024 4:55 PM EDTTelephone Encounter - ZOEY An - 04/29/2024 4:55 PM EDT Note Date & Type Note Facility 07-25-2024 Note [place] [facility] - [facility] Subjective Jenni Quinones is a 84 y.o. year old female patient being seen for follow up FARA s/p TAVR on 06/10/2024. Jardiance is costing her over $500 and they are interested in an alternative. Digoxin was reduced to every other day and spironolactone was cut in half after labs last month. She had repeat labs a few days ago. Daughter says her SOB is worsening. She does not see mangle feeder. 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 She is a 84-year-old woman. She has history of aortic stenosis status post aortic valve replacement with a 23 mm trifecta tissue valve and surgical exclusion of the left atrial appendage, diastolic heart failure, mild CAD, paroxysmal atrial fibrillation post maze procedure and isolation of the pulmonary veins during the aortic valve replacement surgery. She has history of prior admissions to [facility] with AF/RVR and diastolic heart failure decompensation. [...] our cardiology clinic and Jardiance was added. She was evaluated in the emergency room in April 2024 because of worsening shortness of breath. A transthoracic e (more content not included)... [facility] 06-23-2024 Note [place] [facility] - [facility] Subjective Jenni Quinones is a 84 y.o. year old female patient being seen for follow up TAVR performed on 06/10/2024. She fell yesterday and thinks she broke a rib, and she admits to being lightheaded at the time. Patient also says she was awakened during the night recently with bilateral chest pain, radiating to bilateral jaws. Still has palpitations at night time. 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 She is a 84-year-old woman. She has history of aortic stenosis status post aortic valve replacement with a 23 mm trifecta tissue valve and surgical exclusion of the left atrial appendage, diastolic heart failure, mild CAD, paroxysmal atrial fibrillation post maze procedure and isolation of the pulmonary veins during the aortic valve replacement surgery. She has history of prior admissions to [facility] with AF/RVR and diastolic heart failure decompensation. [...] our cardiology clinic and Jardiance was added. She was evaluated in the emergency room in April 2024 because of worsening shortness of breath. A transthoracic echocardiogram showed evide (more content not included)... [facility] 06-11-2024 Note Surgical Intensive C are Unit Progress Note Chief Complaint: Critical Care Management Subjective: 84 y.o. year old female who presented with history of aortic stenosis status post aortic valve replacement with a 23 mm trifecta tissue valve and surgical exclusion of the left atrial appendage, diastolic heart failure, mild CAD, paroxysmal atrial fibrillation post maze procedure and isolation of the pulmonary veins during the aortic valve replacement surgery. She has history of prior admissions to [facility] with AF/RVR and diastolic heart failure decompensation. She has normal coronary angiogram in 2016. Patient presents to the SICU s/p TAVR Review of Systems: all negative (listed below) General: No For Chills, Fever, recent weight loss or weight gain, +fatigue Head/Neck: no blurry vision, tinnitus, headache Respiratory: No Cough, Shortness Of Breath, Or Wheezing Cardiovascular: No Chest Pain Or Dyspnea On Exertion Gastrointestinal: No Abdominal Pain, Nausea, Vomiting Or Diarrhea. No Hematochezia Genito-Urinary: No Dysuria, Trouble Voiding, Or Hematuria Musculoskeletal: No Gait Disturbance, Joint Pain, Weakness Endocrine: no heat or cold intolerance, no hyperglycemia, no polyuria Neurological: No TIA Or Stroke Symptoms, Dizziness, Confusion, Numbness/Tingling, Visual Changes Psych: No history of depression, anxiety or substance abuse Dermatological: No Skin Changes, Rash, Nail Or Hair Changes Interval History: 06/10: TAVR 06/11: Echocardiogram reviewed showing trivial insufficiency. Objective Vitals: BP: (82-150)/(46-107) 123/57 (06/11 1200) Temp: [36.3 ???C (97.3 ???F)-36.4 ???C (97.6 ???F)] 36.3 ???C (97.3 ???F) (06/10 2000) Temp Source: Oral (06/10 2000) Heart Rate: [53-99] 62 (06/11 1200) Resp: [10-26] 20 (06/11 1200) SpO2: [78 %-100 %] 99 % (06/11 1200) Weight: [62.6 kg (138 lb 0.1 oz)] 62.6 kg (138 lb 0.1 oz) (06/11 103) No data recorded I/O last 3 completed shifts: In: 1164.1 (18.6 mL/kg) [I.V.:1164.1 (18.6 mL/kg)] Out: 360 (5.8 mL/kg) [Urine:350 (0.2 mL/kg/hr); Blood:10] Weight: 62.6 kg Physical Exam: General: Awake, Alert, and No acute distress Head: Normocephalic and Atraumatic Neurologic: Alert And Oriented to self, place and time and Moving Extremities and Following Commands Neck: No Abrasions, Contusions, Or Ecchymosis Noted Back: No Abrasions, Contusions, Or Ecchymosis Noted Lungs: Clear to Auscultation Bilaterally With Normal Work Of Breathing Chest Wall: No Crepitus, Deformities, Lacerations, Or Abrasions Cardiovascular: Regular rate and rhythm Palpable femoral/radial/DP pulses bilaterally Abdomen: Soft, Nontender, and Nondistended With Normoactive Bowel Sounds Extremities: No Gross Deformities noted. Skin: Warm And Dry and Normal For Ethnicity Psych: Friendly and Cooperative Labs: Recent Results (from the past 12 hour(s)) CBC Collection Time: 06/11/24 3:30 AM Result Value Ref Range Auto WBC 8.78 4.00 - 10.60 10*3/uL RBC 3.21 (L) 3.80 - 5.00 10*6/uL Hemoglobin 9.3 (L) 12.0 - 15.0 g/dL Hematocrit 30.8 (L) 36.0 - 48.0 % MCV 96.0 82.0 - 98.0 fL MCH 29.0 27.0 - 33.0 pg MCHC 30.2 (L) 32.0 - 35.0 g/dL RDW 14.9 11.5 - 15.0 % Platelets 221 150 - 400 10*3/uL Basic metabolic panel Collection Time: 06/11/24 3:30 AM Result Value Ref Range Sodium 136 136 - 145 mmol/L Potassium 3.7 3.5 - 5.1 mmol/L Chloride 104 98 - 107 mmol/L CO2 24 21 - 31 mmol/L BUN 38 (H) 7 - 25 mg/dL Creatinine 1.68 (H) 0.60 - 1.20 mg/dL Glucose 119 (H) 70 - 100 mg/dL Calcium 8.5 (L) 8.6 - 10.3 mg/dL Anion Gap 12 7 - 20 mmol/L eGFR 29.6 (L) >60.0 mL/min/1.73m*2 BUN/Creatinine Ratio 22.6 Magnesium Collection Time: 06/11/24 3:30 AM Result Value Ref Range Magnesium 2.3 1.9 - 2.7 mg/dL ECG 12 lead Collection Time: 06/11/24 9:13 AM Result Value Ref Range Ventricular Rate 64 BPM QRS DURATION 106 ms QT Interval 434 ms QTC CALCULATION(BAZETT) 447 ms R-Kent -19 degrees T Wave Kent 148 degrees POCT glucose meter Collection Time: 06/11/24 11:11 AM Result Value Ref Range Glucose POC 121 (H) 70 - 105 mg/dL Radiologic studies: No X-ray results found for the past [address] results found for the past 24 hours No MRI results found for the past 24 hours EKG: Encounter Date: 06/10/24 ECG 12 lead Result Value Ventricular Rate 64 QRS DURATION 106 QT Interval 434 QTC CALCULATION(BAZETT) 447 R-Kent -19 T Wave Kent 148 Impression Atrial fibrillation Moderate voltage criteria for LVH, may be normal variant ( R in aVL , Rito product ) Marked ST abnormality, possible lateral subendocardial injury Abnormal ECG When compared with ECG of 10-JUN-2024 15:58, (unconfirmed) QRS duration has decreased T wave inversion no longer evident in Lateral Confirmed by Hui LIZARRAGA, HIRO Ren ([id number]) on 06/11/2024 9:56:48 AM Assessment The patient is a 84 y.o. year old female who presented s/p TAVR. Problem List: - (more content not included)... [facility] 06-11-2024 Note Cardiothoracic Surge ry Post Operative Progress Note 06/11/2024 Room: [facility]8/222- Post Op Day: 1 Day Post-Op Subjective Jennierik Quinones is a 84 y.o. 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 She was evaluated in Cardiology and Cardiothoracic Surgery Clinics, and was deemed appropriate for TAVR as treatment for her aortic valve stenosis given high surgical risk for a redo aortic valve replacement. 06/10 s/p Underwent Successful [id number] transcatheter aortic valve replacement using a 23 mm Zarate Shahram 3 Ultra valve per percutaneous transaxillary access. She tolerated the procedure well and was taken to the SICU for post-operative recovery and management. POD #1- seen bedside. Resting in bed. No acute issues overnight. Remain on 2L NC. Denies chest pain or SOB. Surgical access sites intact. Small hematoma that is soft on left chest area. Pain well controlled. Underwent echocardiogram this morning. Objective Vitals HR - 62 BP - 124/48 RR - 20 SpO2 99% RA Physical Exam Constitutional: Appearance: Normal appearance. HENT: Head: Normocephalic and atraumatic. Eyes: Conjunctiva/sclera: Conjunctivae normal. Cardiovascular: Rate and Rhythm: Normal rate and regular rhythm. Pulses: Normal pulses. Heart sounds: Normal heart sounds. Pulmonary: Effort: Pulmonary effort is normal. Breath sounds: Normal breath sounds. Abdominal: General: Abdomen is flat. Bowel sounds are normal. Palpations: Abdomen is soft. Musculoskeletal: General: Normal range of motion. Skin: General: Skin is warm and dry. Comments: Left chest surgical incision. Intact. Stained dressing. Soft hematoma. Left groin surgical incision. Intact. No drainage. No hematoma. Neurological: General: No focal deficit present. Mental Status: She is alert and oriented to person, place, and time. Psychiatric: Mood and Affect: Mood normal. Behavior: Behavior normal. Assessment/Plan Principal Problem: Nonrheumatic aortic valve stenosis Active Problems: Aortic stenosis, severe 84y.o. F POD #1 [id number]-[id number] transcatheter aortic valve replacement using a 23 mm Zarate Shahram 3 Ultra valve per percutaneous transaxillary access Plan: -Echocardiogram reviewed showing trivial insufficiency. Reviewed with Dr. Braun, Valve is functioning well and in good position. -Follow-up with Cardiology scheduled for 06/23/[address] Nova. -Cardiology coordinating discharge. -No further follow-up with CT Surgery is needed. Chavez Carson, MS3 UTCOMLS To reach Cardiothoracic Surgery Inpatient from 8am-4pm call Ascom #[phone]. Only use epic chat for general questions. If unable to reach Ascom Number call hospital chemical unit operator for Cardiothoracic Provider Director Medical Writing. Cardiothoracic Surgery outpatient Office Number [phone]. Cardiothoracic Surgery outpatient . .att As the teaching physician, I have personally performed or re-performed the history of present illness, physical exam and medical decision-making activities of the encounter and verified the medical student's documentation. I made pertinent changes as necessary to ensure accurate documentation. There may be additional comments below. Additional Comments: Patient is doing well ; her only complain is slight pain at LSC artery access site. Her exam is good. Patient's access sites are without hematoma. She has good peripheral pulses throughout. Heart has a regular rate and rhythm with prosthetic systolic flow murmur, Lungs equal BS bilaterally. Abd soft NT . Neuro is non focal. Plan as per Cardiology Service. Will discus with them. Craig Braun MD CT Surgery [facility] 06-11-2024 Note Cardiothoracic Surge ry Progress Note 06/11/2024 Room: [address] [place] [address] Jenni Quinones is a 84 y.o. 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 She was evaluated in Cardiology and Cardiothoracic Surgery Clinics, and was deemed appropriate for TAVR as treatment for her aortic valve stenosis given high surgical risk for a redo aortic valve replacement. 06/10 s/p Underwent Successful mokyx-iy-tahuj transcatheter aortic valve replacement using a 23 mm Zarate Shahram 3 Ultra valve per percutaneous transaxillary access. She tolerated the procedure well and was taken to the SICU for post-operative recovery and management. POD #1- seen bedside. Resting in bed. No acute issues overnight. Remain on 2L NC. Denies chest pain or SOB. Surgical access sites intact. Small hematoma that is soft on left chest area. Pain well controlled. Underwent echocardiogram this morning. Objective Patient Vitals for the past 24 hrs: BP Temp Temp src Pulse Resp SpO2 Height Weight 06/11/24 0600 (!) 142/107 -- -- 73 26 100 % -- -- 06/11/24 0501 (!) 122/48 -- -- 64 25 100 % -- -- 06/11/24 0500 86/69 -- -- 60 16 100 % -- -- 06/11/24 0400 (!) 111/47 -- -- 57 19 97 % -- -- 06/11/24 0300 (!) 127/47 -- -- 65 20 99 % -- -- 06/11/24 0200 (!) 125/48 -- -- 65 20 100 % -- -- 06/11/24 0100 (!) 126/48 -- -- 61 19 100 % -- -- 06/11/24 0000 117/58 -- -- 55 19 100 % -- -- 06/10/24 2300 (!) 115/49 -- -- 56 17 99 % -- -- 06/10/24 2200 113/51 -- -- 56 16 98 % -- -- 06/10/24 2100 (!) 108/47 -- -- 53 17 97 % -- -- 06/10/241999 (!) 109/46 36.3 ???C (97.3 ???F) Oral 59 20 99 % -- -- 06/10/24 1900 109/52 -- -- 53 15 99 % -- -- 06/10/24 1830 110/80 -- -- 66 19 100 % -- -- 06/10/24 1815 142/55 -- -- 63 19 100 % -- -- 06/10/24 1800 (!) 97/47 -- -- 65 18 100 % -- -- 06/10/24 1745 137/81 -- -- 75 16 99 % -- -- 06/10/24 1730 144/69 -- -- 68 16 (!) 85 % -- -- 06/10/24 1715 -- -- -- 69 14 (!) 78 % -- -- 06/10/24 1705 122/53 36.4 ???C (97.6 ???F) -- 75 19 95 % -- -- 06/10/24 1648 127/67 -- -- 75 15 96 % -- -- 06/10/24 1645 140/54 -- -- 84 15 96 % -- -- 06/10/24 1642 138/68 -- -- 90 17 97 % -- -- 06/10/24 1639 135/66 -- -- 99 18 100 % -- -- 06/10/24 1636 139/78 -- -- 76 14 96 % -- -- 06/10/24 1633 146/66 -- -- 79 10 100 % -- -- 06/10/24 1630 133/54 -- -- 76 15 97 % -- -- 06/10/24 1627 150/63 -- -- 86 13 100 % -- -- 06/10/24 1625 136/62 -- -- 79 13 97 % -- -- 06/10/24 1624 85/76 -- -- 82 12 98 % -- -- 06/10/24 1622 (!) 141/97 -- -- 76 19 -- -- -- 06/10/24 1619 132/58 -- -- 75 16 91 % -- -- 06/10/24 1549 (!) 104/47 -- -- 72 17 95 % -- -- 06/10/24 1259 -- -- -- -- -- 91 % -- -- 06/10/24 1257 146/57 -- -- 75 19 91 % -- -- 06/10/24 1029 126/70 -- -- 74 17 93 % 1.575 m (5' 2 ) 62.6 kg (138 lb) Physical Exam Vitals reviewed. Constitutional: General: She is not in acute distress. Appearance: Normal appearance. She is normal weight. She is not ill-appearing. HENT: Head: Normocephalic and atraumatic. Mouth/Throat: Mouth: Mucous membranes are moist. Pharynx: Oropharynx is clear. Eyes: Extraocular Movements: Extraocular movements intact. Conjunctiva/sclera: Conjunctivae normal. Pupils: Pupils are equal, round, and reactive to light. Neck: Vascular: No carotid bruit. Cardiovascular: Rate and Rhythm: Normal rate and regular rhythm. Pulses: Normal pulses. Heart sounds: Normal heart sounds. No murmur heard. Pulmonary: Effort: Pulmonary effort is normal. No respiratory distress. Breath sounds: Normal breath sounds. Abdominal: General: Abdomen is flat. There is no distension. Palpations: Abdomen is soft. Musculoskeletal: General: Normal range of motion. Cervical back: Normal range of motion. Right lower leg: No edema. Left lower leg: No edema. Skin: General: Skin is warm and dry. Capillary Refill: Capillary refill takes less than 2 seconds. Coloration: Skin is not pale. Comments: Left chest surgical incision. Intact. Stained dressing. Soft hematoma. Left groin surgical incision. Intact. No drainage. No hematoma. Neurological: General: No focal deficit present. Mental Status: She is alert and oriented to person, place, and time. Mental status is at baseline. Psychiatric: Mood and Affect: Mood normal. Behavior: Behavior normal. Thought Content: Thought content normal. Judgment: Judgment normal. Lab Results Component Value Date NA 136 06/11/2024 K 3.7 06/11/2024 CL 104 06/11/2024 ANIONGAP 12 06/11/2024 BUN 38 (H) 06/11/2024 CREATININE 1.68 (H) 06/11/2024 CALCIUM 8.5 (L) 06/11/2024 MG 2.3 06/11/2024 PHOS 2.5 08/29/2018 Lab Results Component Value Date BILITOT 1.2 (H) 08/28/2018 BILIDIR 0.4 (H) 08/28/2018 ALKPHOS 37 08/28/2018 AST 26 08/28/2018 ALT 25 08/28/2018 PROT 5.2 (L) 08/28/2018 ALBUMIN 2.8 (L) 08/28/2018 Lab Results Component Value Date WBC (more content not included)... [facility] 06-10-2024 Note Pharmacy Dosing Serv ice - Vancomycin Initial Consult Note Pharmacy has been consulted for the dosing and evaluation of Drug: Vancomycin Indication: Surgical Prophylaxis x 24 hours post op Other Antimicrobial Regimens: none Labs and Renal Function Total body weight: 62.6 kg (138 lb) [place] body weight: 50.1 kg (110 lb 7.2 oz) Adjusted ideal body weight: 55.1 kg (121 lb 7.5 oz) Body mass index is 25.24 kg/m???. Lab Results Component Value Date WBC 10.51 08/30/2018 WBC 10.16 08/29/2018 WBC 11.09 (H) 08/28/2018 Lab Results Component Value Date BUN 41 (H) 06/10/2024 BUN 14 08/30/2018 BUN 16 08/29/2018 BUN 20 08/28/2018 CREATININE 1.68 (H) 06/10/2024 CrCl or renal function: Estimated Creatinine Clearance: 21.3 mL/min (A) (by C-G formula based on SCr of 1.68 mg/dL (H)). I/O: I/O last 3 completed shifts: In: 489.1 (7.8 mL/kg) [I.V.:489.1 (7.8 mL/kg)] Out: 10 (0.2 mL/kg) [Blood:10] Weight: 62.6 kg Plan: -Do not need give post-op vancomycin. Patient is in CATHY and should be therapeutic for 24 hours. -If there is a concern for infection, please re-consult and we will [id number]. -Please do not hesitate to contact us with comments or questions Thank you, Isamar Chavez, PharmD, 06/10/24 [facility] 06-10-2024 Note Craig Braun MD 06/10/2024 TAVR V in V Shahram S3 Ultra # 23 valve OP NOTE: INDICATION: Jenni Quinones is a 84 y.o. 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 she was evaluated in Cardiology and Cardiothoracic Surgery Clinics, and was deemed appropriate for TAVR as treatment for her aortic valve stenosis given high surgical risk for a redo aortic valve replacement. she had shared decision making and agreed to the procedure. she is brought today for that purpose. Given severe peripheral vascular disease, we opted for percutaneous transaxillary access for the TAVR procedure. PROCEDURES: Successful woujr-ra-cmioc transcatheter aortic valve replacement using a 23 mm Zarate Shahram 3 Ultra valve deployed at nominal volume via percutaneous transfemoral access. Placement of a temporary pacemaker wire. Left heart catheterization. Access into the left subclavian artery, left radial artery, left common femoral artery and vein under ultrasound guidance. Left axillary artery angiogram. Preclosure in the left axillary artery using two 6-Mozambican ProGlide devices. Balloon aortic valvuloplasty. OPERATORS: Interventional Cardiology Director Case Management: Josefina Nova MD Cardiac Surgery Director Case Management: Craig Braun MD Supervisor Post Wave Interventional Cardiology Director Case Management: Ángel Lim MD METHODS: Procedure was explained to the patient with risks and benefits. she signed informed consent. she was brought to hatchery laborer in a fasting state. The procedure was performed in the cardiac hatchery laborer under conscious sedation. The left groin area, the left wrist area, and the left shoulder area were prepped and draped in usual fashion. Micropuncture technique and ultrasound guidance were used for access in the left common femoral artery and inner cannula angiography was performed followed by upsizing to a 6-Mozambican x 11 cm sheath. The same was done for the access in the left common femoral vein. Ultrasound guidance was used for micropuncture access in the left radial artery and a 4-Mozambican x 11 cm introducer sheath was secured in place. Verapamil was given through the sheath. Micropuncture technique and ultrasound guidance were used for access in the left axillary artery and inner cannula angiography was performed. Initial access was though suboptimal and therefore abandoned and manual compression applied for hemostasis. Access was then obtained at an optimal location as confirmed by inner cannular angiography followed by upsizing to a 6-Mozambican x 11 cm sheath. At this time, we proceeded with the preclosure in the left axillary artery using 2 crossing Perclose devices and the access was then upsized over a wire to a 10-Mozambican sheath. A 5-Mozambican balloon-tipped pacemaker wire was advanced through the left common femoral vein sheath to the right ventricular apex and adequate capture was confirmed. Heparin was given intravenously and therapeutic ACT confirmed during the rest of the procedure and additional heparin given as needed. A 6 Moz[place] JL 3.5 guiding catheter was advanced through the left common femoral arterial sheath and used to engage the left coronary artery. Angiography was performed. A Prowater wire was advanced into the distal LAD. This was placed for protection of the left main given moderate risk for coronary obstruction. A 6-Mozambican AR1 diagnostic catheter was advanced via the axillary sheath, and using a straight stiff Glidewire, the aortic valve was crossed and the catheter was advanced in the left ventricular cavity, and using an exchange length J-wire, a 6-Mozambican angled pigtail catheter was advanced to make sure no entanglement under mitral valve apparatus. Confirmation of the crossing in the center of the valve was performed using multiple angiographic views as well as transthoracic echocardiography. The pigtail catheter was then used to place an exchange length Amplatz Extra Stiff wire with a distal curve. The left axillary access was then upsized using an exchange length amplatz extra stiff wire to the 14-Mozambican Zarate E-sheath. The sheath was secured in place. Based on the prior CT scan measurements and the [id number] erika, we proceeded with a Zarate Shahram 3 Ultra 23 mm valve. This was prepped using standard technique at nominal volume. Balloon aortic valvuloplasty was performed under rapid pacing at 180 bpm using a Tyshak 18 mm balloon. The balloon was retracted. The valve was then advanced over the wire and across the aortic valve. Reconstitution of the balloon and valve assembly was performed in the ascending aorta. The valve was advanced inside the existing surgical Trifecta valve. Under rapid pacing at 180 beats per minute, the valve was deployed. The balloon was deflated, and pacing was stopped. The delivery catheter was retracted. The delivery catheter of the valve was exchanged (more content not included)... [facility] 06-10-2024 Note Patient: Jenni Liao se Procedure Information Date/Time: 06/10/24 1130 Procedure: TAVR - PC APPROVED Location: [facility] BEDSPREAD FOLDER 3 / [facility]ASCULAR LAB (Cath) Providers: Josefina oNva MD Clinical information reviewed: Allergies Meds OB Status Physical Exam Airway Mallampati: III TM distance: >3 FB Neck ROM: full Cardiovascular Rhythm: regular Rate: normal Dental Pulmonary Breath sounds clear to auscultation Abdominal Anesthesia Plan ASA 3 other (Conscious sedation.) Anesthetic plan and risks discussed with patient. Use of blood products discussed with patient who consented to blood products. Additional Equipment Requests [facility] 06-02-2024 Note [place] Cardiology - [facility] Subjective Jenni Quinones is a 84 y.o. year old female patient being seen to discuss TAVR. 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 She is a 84-year-old woman. She has history of aortic stenosis status post aortic valve replacement with a 23 mm trifecta tissue valve and surgical exclusion of the left atrial appendage, diastolic heart failure, mild CAD, paroxysmal atrial fibrillation post maze procedure and isolation of the pulmonary veins during the aortic valve replacement surgery. She has history of prior admissions to [facility] with AF/RVR and diastolic heart failure decompensation. [...] our cardiology clinic and Jardiance was added. Recently she was evaluated in the emergency room in April 2024 because of worsening shortness of breath. A transthoracic echocardiogram showed evidence of severe stenosis of the bioprosthetic valve. She then underwent further evaluation by transesophageal echocardiogram that showed severe stenosis of the bioprosthetic aortic valve and severe tricuspid regurgitation. Cardiac catheterization 05/27/2024 showed minimal coronary artery disease (more content not included)... [facility] 05-29-2024 Note Cardiothoracic Surge ry Outpatient Consultation [...] and Other Diagnostic Testing. Findings discussed with vacuum drier tender and patient. Explained current disease process and [...] (PriLOSEC) 40 m (more content not included)... [facility] 05-27-2024 Note Patient: Jenni Liao se Procedure Information Date/Time: 05/27/24 1000 Procedures: Right heart cath Coronary angiography Location: [facility] BEDSPREAD FOLDER 3 / [facility]ASCULAR [facility] (Cath) Providers: Josefina Nova MD [...] consented to blood products. Additional Equipment Requests [facility] 05-27-2024 Note Patient: Jenni Liao se Procedure Information Date/Time: 05/27/24 0830 Procedure: TRANSESOPHAGEAL ECHO (FARA) Location: [facility] Heart and Vascular Center Vascular [...] Plan discussed with attending. Additional Equipment Requests [facility] 05-27-2024 Note Report given to Torey turner RN. RN verbalized how FARA went and medications given during the procedure. [facility] 05-13-2024 Note Cardiovascular Medic [facility] SUBJECTIVE Chief Complaint Patient presents with [...] c/o chest pain. She was transferred to [facility] for further cardiac care. 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 [facility] 05-13-2024 Note Patient here for 3 m o follow up aortic/mitral valve stenosis, diastolic heart failure, and permanent afib. She was admitted to [facility] a few weeks ago for chest pain. [...] All other systems reviewed and are negative. [facility] 05-08-2024 History of Present illness Narrative Images from the original note were not included. HPI Follow-up Additional comments: [facility] stay 04/11/24-04/13/24 after fall at home with rib fractures discharged to [facility] 04/24/24-04/25/24 dx: CP Discharged home from [place] 04/30/24 Shortness of Breath Additional comments: Had echo yesterday ordered by cardiology has appt with cardiology next week Using 02 continuously Med Refill Additional comments: Hydrocodone--DM mio Last edited by Bev Mejia LPN on 05/08/2024 11:24 AM. Subjective Patient ID: Jenni Quinones is a 84 y.o. female who presents for Follow-up ([facility] stay 04/11/24-04/13/24 after fall at home with rib fractures discharged to [facility] 04/24/24-04/25/24 dx: CP/Discharged home from [facility] 04/30/24), Shortness of Breath (Had echo yesterday ordered by cardiology has appt with cardiology next week/Using 02 continuously ), and Med Refill (Hydrocodone--DM mio). Flowsheet Row Patient Outreach from 04/30/[address] [facility] with Monica Ross LPN Hospital Information ED, Hospital or Half-Way Facility Discharge? Half-Way Facility Discharged To: Home Setting Engagement Medications [...] Management What is the home health agency? [facility] NURSE/PT/OT Has home health visited [...] muscle spasms. 30 tablet 3 [DISCONTINUED] HYDROcodone-acetaminophen ([place]) 5-325 MG tablet Take 1 tablet by [...] History: Diagnosis Date Abnormal echocardiogram 09/06/2020 Asthma ([facility]/HCC) Atrial flutter ([facility]/HCC) CHF (congestive heart failure) ([facility]) Diabetes ([facility]) Diverticulosis Enthesopathy of left foot 02/2016 Enthesopathic spurring of calcaneous of left foot per xray Feb 2016 History of being hospitalized 04/25/2024 Chest Pain, ECG Changes HTN (hypertension) ([facility]) Hyperlipidemia ([facility]) Routine general medical examination at [...] 08/07/2023 L3-L5 LUMBAR EPIDURAL INJECTION 05/29/2023 L4-L5 TX ARTHROSCOPY KNEE DIAGNOSTIC W/WO SYNOVIAL BX SPX Left TX INTUBATION ENDOTRACHEAL EMERGENCY PROCEDURE 08/18/2018 [place] MEDICATION MANAGEMENT Aortic insufficiency RIGHT HEART CATHETERIZATION [...] Spinal stenosis at L4-L5 level - HYDROcodone-acetaminophen ([place]) 5-325 MG tablet; Take 1 tablet by mouth every 4 (four) hours if needed for severe pain for up to 10 days Follow up in about 4 weeks (around 06/05/2024) for Routine F/U. documented in this encounter [facility] 04-29-2024 Telephone encounter Note [facility] requesting clarification on dispense amount for insulin. Resent with correct amount to dispense. [facility] 04-29-2024 Miscellaneous Notes [facility] requesting clarification on dispense amount for insulin. Resent with correct amount to dispense. documented in this encounter [facility] 04-25-2024 Consult note Note Date/Time April 25, 2024 12:10pm [facility] [address] [place] [address] Cardiology Consult Note Signed with Addenda Patient: Jenni Quinones MR#: [id number] : 1940 Acct:[id number] Age/Sex: 84 / F Adm Date: 4 Loc: Room: [address] [place] [address] Type: ADM IN Attending Dr: Javan Gruber MD Copies to: MD Jasvir Marx II, MD W Scott Sheldon, DO~ ADDENDUM1 Addendum: Lexiscan stress test this afternoon completely normal perfusion; patient is clear for discharge to follow-up with general cardiology Addendum Documented By: Ingrid Haynes DO 04/25/241614 Addendum Signed By: <Electronically signed by Ingrid Haynes DO> 04/25/241614 Cardiology HPI History of Present Illness Consult Date: 04/25/24 Reason for Consult: Chest pain/angina HPI: Ms. Quinones is a 84 year old female seen in interventional cardiology consultation at request the hospitalist and ER nurse practitioner at [facility] after discussion last night. Patient was transferred here under my direction for further assessment and management. She was watching the [employer] baseball game, became very excited and experienced retrosternal chest discomfort that abated after arrival to the emergency room after being directed by her family togo to the ER for her discomfort. Initial ECGs revealed atrial fibrillation withnonspecific ST changes, initial troponin was negative. Patient has a history of chronic atrial fibrillation, aortic valve replacement in [place], followed by Dr. Nova. She has previous [...] be discharged to follow-up with her primary vacuum drier tender. [facility] Medical History (Updated 04/25/24 @ 04:15 [...] Lymph # (Auto) 0.7 L (1.00-4.8) x10E3/uL [place] # (Auto) 0.8 (0.0-0.8) x10E3/uL Eos # [...] <Electronically signed by Ingrid Haynes DO> 04/25/24 1205 [facility] Work Phone: 1(353) 938-671910-18-2024 History and physical note Author Lalo Carter [facility] April 25, 2024 4:19am Note Date/Time April 25, 2024 4 :10am [facility] [address] [place] [address] Hospitalist H&P Signed Patient: Jenni Quinones MR#: [id number] : 1940 Acct:[id number] Age/Sex: 84 / F Adm Date: 4 Loc: Room: [address] [place] [address] Type: ADM IN Attending Dr: Lalo Carter DO Copies to: MD Lalo Padilla II, ~ HPI DATE OF EXAMINATION: 04/25/24 CHIEF COMPLAINT: Chest pain with radiation to the jaw and shortness of breath and EKG change HISTORY OF PRESENT ILLNESS: This is an 84-year-old woman who presented to the [facility] emergency room. The ER over there had gotten a hold of cardiology on-call with Dr. Haynes regarding EKG changes especially in aVL with inferior depression pattern and so it was recommended that the patient be transferred here to [facility] for cardiology evaluation. The patient is currently in a long-term facility working with physical therapy and getting [...] of this lasted 20 minutes. At the [facility] emergency room a chest x-ray showed [...] cardiology with Dr. Josefina Nova from the [facility], to [place]. 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 She has been told that there is something just not quite right about that aortic valve, but she cannot explain what the vacuum drier tender were looking at. When I asked her if she got cardiac catheterization and planning for the aortic valve replacement the patient does not recall getting this. Review of Systems Review of Systems Review of systems: 10 systems are reviewed and are negative except as mentioned elsewhere in the documentation. [facility] Medical History (Updated 04/25/24 @ 04:15 [...] diabetes mellitus: Plan Assessment: Presentation to the [facility] with chest pain with radiation to [...] a fall on April 11 at a long-term facility in [place]. Plan: Hospital admission, inpatient status. N.p.o. for [...] signed by Lalo Carter DO> 04/25/24 0419 [facility] Work Phone: 1(470) 407-619709-09-2024 Telephone encounter Note* Telephone Encounter - Jasvir León MD - 03/17/2024 1:33 PM EDT Rx was sent in. [id number] Miscellaneous Notes* Telephone Encounter - Jasvir León MD - 03/17/2024 1:33 PM EDT Rx was sent in. * Telephone Encounter - Bev Mejia LPN - 03/17/2024 1:11 PM EDT Pt called tested positive for covid has sorethroat,headache,cough,fatigue she wasn't sure if she needed to get paxlovid or just let it run its course--symptoms started last night [id number] Telephone encounter Note* Telephone Encounter - Bev Mejia LPN - 03/17/2024 1:11 PM EDT Pt called tested positive for covid has sorethroat,headache,cough,fatigue she wasn't sure if she needed to get paxlovid or just let it run its course--symptoms started last night [facility] [id number] NoteUT Cardiology - [facility] Subjective Jenni Quinones is a [...] of iron deficiency Heart valve transplanted 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 [...] of Systems Constitutional: P (more content not included)...[facility] NoteRecently admitted overnight at [facility] for Acute HFrEF and palpitations Coreg was [...] function and electrolytes and she voiced understanding. [place] II-III Pt is [facility] Noteaortic valve replacement with a 23 mm trifecta tissue valve: 2016 Elevated doppler flows noted and severe AO stenosis- will repeat TTE a 6 months to re-evalaute. RTC with Dr Nova D/W pt about red flag symptoms to call 911 and/or office- increased SOB, Palpitations, syncope, chest pain or any concerns and she voiced understanding Continue all medications as prescribedUn[facility] 12-07-2023 NoteRepeat TTE in 6 months Pt denied any worsening symptoms since DC from [facility] and diuresisUnFlower Hospital05-31-2024 NoteStable, will monitor with routine echocardiogram in [facility]Un[facility]05-31-2024 NoteUTP CARDIOLOGY PROGRESS NOTE HPI: Jenni Quinones is a 83 y.o. female here for routine f/U and review of TTE and ED f/U Patient here for 6 mo follow up aortic and mitral valve stenosis, diastolic heart failure, and permanent afib. She had an echo last month. She presented to [facility] ED a few weeks ago for palpitations. [...] She has history of prior admissions to [facility] with AF/RVR and diastolic heart failure decompensation. She has normal coronary angiogram in 2016. Patient here for 6 mo follow up aortic and mitral valve stenosis, diastolic heart failure, and permanent afib. She had an echo last month. She presented to [facility] ED a few weeks ago for palpitations. [...] initiated. Patient agrees this plan. Emergency Department [facility] 5 Patient name: JENNI QUINONES Laboratory reviewed [...] has new requirement of 2L O2 by DC. Case discussed with hospitalist who agreed to [...] She has history of prior admissions to [facility] with AF/RVR and diastolic heart failure decompensation. [...] flows across the biop (more content not included)...[facility] NotePatient here for 6 mo follow up aortic and mitral valve stenosis, diastolic heart failure, and permanent afib. She had an echo last month. She presented to [facility] ED a few weeks ago for palpitations. [...] weakness. All other systems reviewed and are negative.[facility] 12-07-2023 NoteContinue to monitor AO valve with repeat TTE in 6 months [facility]01-30-2024 History of Present illness Narrative* Carole Loyola LPN - 08/07/2023 10:57 AM EST Pt alert and oriented. Denies pain at this time. Dressings at injection site clean and dry. Discharge instructions reviewed, no questions or concerns voiced. documented in this [facility] Work Phone: [phone] Hospital Discharge instructions* Discharge Instructions* Carole Loyola [...] vomiting - Difficulty breathing or swallowing CALL 611 Other Instructions: - You should have a follow-up appointment scheduled already or a follow-up plan in place prior to leaving. - Call the office if you develop any problems or have any questions at: [facility] [phone] or Our 24 hour help line is also available: [phone] ([phone]) If you need refills,or have questions / concerns, outside of our office hours Sunday 8:00 a.m - 4:30 p.m. at [facility], please call [phone] to speak to Constance STEINER or leave a voicemail for her. *Remember to allow at least 48 business hours for medication refill requests. documented in this encounterW[facility]OT Work Phone: 1(104) 893-924212-01-2022 NoteHISTORY AND PHYSICAL EXAMINATION Date:06/07/2022 HISTORY: The [...] and go forward with her elective procedure.[facility] [id number] NoteOPERATIVE NOTE OPERATION DATE: 06/08/2022 SURGEON: Dawood [...] ensuring mobility, phacoemulsification was performed in a tzngdur-dvl-akiqhc-type fashion. After all nuclear material had been [...] up the following day for postoperative care.[facility] [id number] NoteOPERATIVE NOTE OPERATION DATE: 04/13/2022 SURGEON: Dawood [...] ensuring mobility, phacoemulsification was performed in a puxkhjx-nvb-lpwplp-type fashion. After all nuclear material had been [...] up the following day for postoperative care.[facility] [id number] NoteHISTORY AND PHYSICAL EXAMINATION Date:04/12/2022 HISTORY: The [...] and go forward with her elective procedure.[facility] [id number] Evaluation note* Encounter Date Diagnosis Assessment Notes [...] Patient care instructions given in writting by [facility] document [employer] Other Evaluation note* Diagnosis Lumbar spondylosis- Primary Lumbosacral spondylosis without myelopathy documented in this encounter [facility] Work Phone: evaluation note* Diagnosis Onset Date Resolution Status Acute electrocardiogram changes acute Chest pain acute Fracture of rib of left side acute GERD (gastroesophageal reflux disease) acute Hypertension acute Type 2 diabetes mellitus acu [facility] Work Phone: Evaluation note* Diagnosis Diabetes mellitus with peripheral vascular disease (CMS/HCC) documented in this encounter [facility]* Diagnosis Closed fracture of multiple ribs of right side with routine healing, subsequent encounter- Primary Nonrheumatic aortic valve stenosis Spinal stenosis at L4-L5 level documented in this encounter [facility]* Diagnosis Depression with anxiety Dysthymic disorder Anxiety Anxiety state, unspecified documented in this encounter [facility] Healthcare[facility] note* Diagnosis COVID- Primary documented in this encounter [facility] HealthcareEvaluation note* Diagnosis Spinal stenosis at L4-L5 level documented in [...] see above list Hospitalization History chf x3 [employer] Other Hospital Discharge instructions Additional Instructions [facility] facility to manage care: DNR CCA no intubation PT/OT to eval and treat Routine vital signs Maintain high risk falls precautions Monitor cardio assessment -- angina Care to be managed by SNF provider [facility] Work Phone: Summary Purpose Family History [...] section and content) DATE CREATED AUTHOR 08/19/2021 [facility] dical Specialist DATE CREATED AUTHOR AUTHOR'S ORGANIZ ATION 12/26/2021 [facility] DATE CREATED AUTHOR AUTHOR'S ORGANIZ ATION 12/15/2022 [facility] DATE CREATED AUTHOR AUTHOR'S ORGANIZ ATION 05/18/2023 [facility] DATE CREATED AUTHOR AUTHOR'S ORGANIZ ATION 08/08/2023 [facility] DATE CREATED AUTHOR AUTHOR'S ORGANIZ ATION 05/03/2024 [facility] DATE CREATED AUTHOR AUTHOR'S ORGANIZ ATION 05/10/2024 [facility] dical Specialists EPIC DATE CREATED AUTHOR AUTHOR'S ORGANIZ ATION 07/28/2024 [facility] REASON FOR VISIT (unrecogniz ed section and content) Specialty Diagnoses / Procedures Referred By Williams t Referred To Contact Diagnoses Lumbar spondylosis Lumbar spondylosis [M47.816] Procedures TX NJX DX/THER AGT PVRT FACET JT LMBR/SAC 1 LEVEL TX NJX DX/THER AGT PVRT FACET JT LMBR/SAC 2ND LEVEL B/L LUMBAR MEDIAL BRANCH BLOCK L3 L4 L5 B/L LUMBAR MEDIAL BRANCH BLOCK L3 L4 L5 Kd Hines MD [address] [place] [address] [facility] Phone: [phone] Referral ID Status Reason Start Date Expiration Date Visits Re quested Visits Authorized [id number] 1 1 Reason Comments Follow-up [facility] stay 04/11/24-04/13/24 after fall at home with rib fractures discharged to [facility] 04/24/24-04/25/24 dx: CPDischarged home from [place] 04/30/24 Shortness of Breath Had echo yesterday o rdered by cardiology has appt with cardiology next weekUsing 02 continuously Med Refill Hydrocodone--DM clyd e Reason Onset Date Comments Med Refill 06/23/2024 Reason Onset Date Comments covid 03/17/2024 Reason Onset Date Comments Med Refill 06/26/2024 PRN Active and Recently Administ ered Medications [...] Care Teams (unrecognized sec tion and content) Lap Maker Relationship Specialty Start Date End Date Jasvir León MD [address] [place] [address] PCP - General Internal Medicine 05/07/23 Team [...] April 25, 2024 End: April 25, 2024 Lap Maker Relationship Specialty Start Date End Date Jasvir León MD [address] [place] [address] PCP - General Internal Medicine 11/20/22 Jasvir León MD [address] [place] [address] PCP - ACO Reach 11/30/22 Lap Maker Relationship Specialty Start Date End Date Jasvir León MD [address] [place] [address] PCP - General Internal Medicine 11/20/22 Jasvir León MD [address] [place] [address] PCP - ACO Reach 11/30/22 Lap Maker Relationship Specialty Start Date End Date Jasvir León MD [address] [place] [address] PCP - General Internal Medicine 11/20/22 Jasvir León MD [address] [place] [address] PCP - ACO Reach 11/30/22 Lap Maker Relationship Specialty Start Date End Date Jasvir León MD [address] [place] [address] PCP - General Internal Medicine 11/20/22 Jasvir León MD [address] [place] [address] PCP - ACO Reach 11/30/22 Lap Maker Relationship Specialty Start Date End Date Jasvir León MD [address] [place] [address] PCP - General Internal Medicine 11/20/22 Jasvir León MD [address] [place] [address] PCP - ACO Reach 11/30/22 Lap Maker Relationship Specialty Start Date End Date Jasvir León MD [address] [place] [address] PCP - General Internal Medicine 11/20/22 Jasvir León MD [address] [place] [address] PCP - ACO Reach 11/30/22 Lap Maker Relationship Specialty Start Date End Date Jasvir León MD [address] [place] [address] PCP - General Internal Medicine 11/20/22 Jasvir León MD [address] [place] [address] PCP - ACO Reach 11/30/22 Lap Maker Relationship Specialty Start Date End Date Jasvir León MD [address] [place] [address] PCP - General Internal Medicine 11/20/22 Jasvir León MD [address] [place] [address] PCP - ACO Reach 11/30/22 Lap Maker Relationship Specialty Start Date End Date Jasvir León MD [address] [place] [address] PCP - General Internal Medicine 11/20/22 Jasvir León MD [address] [place] [address] PCP - ACO Reach 11/30/22 Leora Pollard, [place] Registered Nurse Family Medicine 07/10/24 FOR RECORDS PERTAINING TO PATIENTS WHO ARE [...] BE BASED ON THE PRIMARY CLINICAL RECORDS. [facility] [employer] [facility]. provides no warranty or guarantee of the accuracy or completeness of information in this document.
[2024-08-14] MEDS: 0.9 % SODIUM CHLORIDE 1,000 ML 1000 ML IV (21:49)
--- NOTE | 2024-08-14 21:49 | ECG_ITS ---
The [facility] Test Date: 2024-08-14 Pat Name: KATHY VILLEGAS Department: Room: - Gender: Female Imaging Analyst: : 1940 Requested By: JHONATAN LUCIA Order Number: [id number] Reading MD: MIKE HUGO Measurements Intervals [place] Rate: 145 P: -[id number] RI: -[id number] QRS: -25 QRSD: 96 T: 171 QT: 310 QTc: 393 Interpretive Statements 26019 Atrial fibrillation with rapid ventricular response [address] depression, possible subendocardial injury or digitalis effect 65988 Twave abnormality, possible lateral ischemia or digitalis effect 7202 Moderate left axis deviation 9150 abnormal ECG Electronically Signed On 08-15-2024 16:48:29 EST by MIKE HUGO
--- NOTE | 2024-08-14 21:49 | ED.GENADUL1 ---
HPI HPI - General Adult General Chief complaint: Nausea/Vomiting/Diarrhea Stated complaint: N/V/DIARRHEA Time Seen by Provider: 08/14/24 21:38 Source: patient Mode of arrival: ambulance Limitations: no limitations History of Present Illness HPI narrative: 84-year-old female presents to ED from home by squad for a chief complaint of nausea vomiting and diarrhea and cough. She has been sick for about 24 hours. She lives by herself. No hematemesis or hematochezia. She could not tell me when the symptoms started and she could not tell me when the palpitations that she is feeling started either. Related Data Home Medications ?Medication ?Instructions ?Recorded ?Confirmed alprazolam 0.25 mg tablet 0.25 mg PO Q6H PRN anxiety 11/17/23 04/24/24 atorvastatin 20 mg tablet 20 mg PO QPM 11/17/23 04/24/24 bupropion HCl 150 mg tablet,12 hr 150 mg PO BID 11/17/23 04/24/24 sustained-release digoxin 125 mcg (0.125 mg) tablet 0.125 mg PO .QOD 11/17/23 04/25/24 escitalopram oxalate 10 mg tablet 10 mg PO DAILY 11/17/23 04/25/24 gabapentin 100 mg capsule 100 mg PO TID 11/17/23 04/25/24 insulin lispro protamine-lispro 8 unit subcut BID 11/17/23 04/25/24 100 unit/mL (75-25) subcutaneous pen omeprazole 40 mg capsule,delayed 40 mg PO DAILY 11/17/23 04/25/24 release ropinirole 0.25 mg tablet 0.25 mg PO QPM 11/17/23 04/25/24 torsemide 20 mg tablet 20 mg PO DAILY 11/17/23 04/25/24 Previous Rx's ?Medication ?Instructions ?Recorded carvedilol 12.5 mg tablet (Coreg) 12.5 mg PO BID #60 tabs 11/18/23 spironolactone 25 mg tablet 25 mg PO DAILY #30 tabs 11/18/23 (Aldactone) oxycodone-acetaminophen 5 mg-325 1 tab PO Q8H PRN pain 4 days #10 04/14/24 mg tablet (Percocet) tabs Allergies Allergy/AdvReac Type Severity Reaction Status Date / Time codeine Allergy Intermediate Unknown Verified 08/14/24 21:41 Penicillins Allergy Intermediate Unknown Verified 08/14/24 21:41 Opioid HPI Opioid Management Most Recent Opioid Data: Last Pain Scale 7 04/25/24 00:34 04/25/24 Last ORT Total Score 0 04/11/24 18:06 04/11/24 Last ORT Risk Category Low Risk 04/11/24 18:06 04/11/24 Review of Systems ROS Narrative A ten point review of systems is negative except as noted above. PFSH PFS Medical History (Updated 08/14/24 @ 23:54 by Rei Parry MD) Chronic hypoxic respiratory failure ?J96.11 - Chronic respiratory failure with hypoxia (ICD-10) Multiple rib fractures ?S22.49XA - Multiple fractures of ribs, unspecified side, initial encounter for closed fracture (ICD-10) Type 2 diabetes mellitus with hyperglycemia ?E11.65 - Type 2 diabetes mellitus with hyperglycemia (ICD-10) Aortic stenosis, moderate ?I35.0 - Nonrheumatic aortic (valve) stenosis (ICD-10) Persistent atrial fibrillation ?I48.19 - Other persistent atrial fibrillation (ICD-10) Chronic heart failure with preserved ejection fraction (HFpEF) ?I50.32 - Chronic diastolic (congestive) heart failure (ICD-10) Hypertension ?I10 - Essential (primary) hypertension (ICD-10) HLD (hyperlipidemia) ?E78.5 - Hyperlipidemia, unspecified (ICD-10) CKD (chronic kidney disease) stage 3, GFR 30-59 ml/min ?N18.30 - Chronic kidney disease, stage 3 unspecified (ICD-10) Hypothyroid ?E03.9 - Hypothyroidism, unspecified (ICD-10) Acute thoracic back pain ?M54.6 - Pain in thoracic spine (ICD-10) Closed compression fracture of L1 vertebra ?S32.010A - Wedge compression fracture of first lumbar vertebra, initial encounter for closed fracture (ICD-10) Lung mass ?R91.8 - Other nonspecific abnormal finding of lung field (ICD-10) Compression fracture of L1 lumbar vertebra ?S32.010A - Wedge compression fracture of first lumbar vertebra, initial encounter for closed fracture (ICD-10) Acute pain of left foot ?M79.672 - Pain in left foot (ICD-10) 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 ?F32.89 - Other specified depressive episodes (ICD-10) Anxiety ?F41.9 - Anxiety disorder, unspecified (ICD-10) Diabetes ?E11.9 - Type 2 diabetes mellitus without complications (ICD-10) Atrial fibrillation ?I48.91 - Unspecified atrial fibrillation (ICD-10) Surgical History (Updated 11/22/23 @ 00:00 by ) Status post aortic valve repair ?Z98.890 - Other specified postprocedural states (ICD-10) S/P ablation of atrial fibrillation ?Z98.890 - Other specified postprocedural states (ICD-10) ?Z86.79 - Personal history of other diseases of the circulatory system (ICD-10) History of carpal tunnel surgery of right wrist ?Z98.890 - Other specified postprocedural states (ICD-10) H/O: hysterectomy ?Z90.710 - Acquired absence of both cervix and uterus (ICD-10) Aortic valve replaced ?Z95.2 - Presence of prosthetic heart valve (ICD-10) History of cholecystectomy ?Z90.49 - Acquired absence of other specified parts of digestive tract (ICD-10) Family History (Updated 11/17/23 @ 14:56 by Aylin Nobles) Mother Family history of CHF (congestive heart failure) Father Family history of diabetes mellitus Sister Family history of diabetes mellitus Son Family history of myocardial infarction Social History (Updated 11/17/23 @ 14:57 by Aylin Nobles) Within the past year, how often did you have a drink containing alcohol: monthly or less Within the past year, how many standard drinks containing alcohol did you have on a typical day: 1 or 2 Within the past year, how often did you have six or more drinks on one occasion: never Total score: 0 Score interpretation: A score less than 3 is consistent with normal alcohol consumption. Smoking status: Former smoker Non-prescribed substance use: denies use Previous occupational history: retired Highest level of school completed/degree received: high school graduate Are you now , , , , never or living with a partner: In a typical week, how many times do you talk on the telephone with family, friends, or neighbors: 3 or more times per week How often do you get together with friends or relatives: 3 or more times per week How often do you attend religion or druze services: 4 or more times per year Do you belong to any clubs or organizations such as religion groups unions, fraternal or athletic groups, or school groups: no Total score: 2 Score interpretation: A score of greater than or equal to 2 indicates the lowest level of social isolation. Little interest or pleasure in doing things: not at all Feeling down, depressed, or hopeless: not at all Feel stressed/tense/nervous/anxious/difficulty sleeping: not at all Gender Identity: female Exam Narrative Exam Narrative: Nurses note and vital signs reviewed and patient is not hypoxic. General: The patient appears uncomfortable and in no acute respiratory distress Skin: Warm, dry, no pallor noted. There is no rash noted. Head: Normocephalic, atraumatic Eye: Normal conjunctiva, no drainage Ears, Nose, Mouth, and Throat: oral mucosa is moist. Nares patent. Cardiovascular: Irregularly irregular and tachycardic Respiratory: Patient is in no distress, no accessory muscle use, lungs are clear to auscultation, no wheezing, rales or rhonchi. She coughs occasionally GI: Soft and nontender Musculoskeletal: The patient has no evidence of calf tenderness, no pitting edema, symmetrical pulses noted bilaterally Neurological: Awake and alert Psychiatric: Cooperative Constitutional Vital Signs, click to edit/add: Last Vital Signs Temp 98.1 F 08/14/24 21:35 Pulse 137 H 08/14/24 23:40 Resp 40 H 08/14/24 23:40 BP 141/67 08/14/24 23:30 Pulse Ox 93 L 08/14/24 23:30 O2 Del Method Nasal Cannula 08/14/24 21:35 O2 Flow Rate 2 08/14/24 21:35 Course Vital Signs Vital signs: Vital Signs Temperature 98.1 F 08/14/24 21:35 Pulse Rate 122 H 08/14/24 21:35 Respiratory Rate 15 08/14/24 21:35 Blood Pressure 94/67 08/14/24 21:35 Pulse Oximetry 93 L 08/14/24 21:35 Oxygen Delivery Method Nasal Cannula 08/14/24 21:35 Oxygen Delivery Flow Rate 2 08/14/24 21:35 Temperature 98.1 F 08/14/24 21:35 Pulse Rate 137 H 08/14/24 23:40 Respiratory Rate 40 H 08/14/24 23:40 Blood Pressure 141/67 08/14/24 23:30 Pulse Oximetry 93 L 08/14/24 23:30 Oxygen Delivery Method Nasal Cannula 08/14/24 21:35 Oxygen Delivery Flow Rate 2 08/14/24 21:35 Medical Decision Making MDM Narrative Medical decision making narrative: CAT scan shows a pleural-based density which is larger than it was about a year and a half ago. This was discussed with the patient and her daughter. The daughter is aware of it but she states it was never investigated further. Her BUN and creatinine are slightly higher than baseline. White count 16,000 and that where the CAT scan was performed. She will be admitted for IV fluids and nausea control. She is also given some IV Ativan for restlessness. She has a history of atrial fibrillation and is in atrial fibrillation and her heart rate has ranged from the low 100s up to about 120. Treatment diagnosis and disposition were discussed with the patient and her daughter. Differential Diagnosis Differential Diagnosis: Gastroenteritis, food poisoning, dehydration Lab Data Lab results reviewed: Yes I reviewed the patient's lab results Labs: Lab Results 08/14/24 08/14/24 Range/Units 21:45 22:44 WBC 16.8 H (4.0-11.0) 10^3/uL RBC 3.55 L (4.20-5.40) 10^6/uL Hgb 9.6 L (12.0-16.0) g/dL Hct 31.6 L (36.0-48.0) % MCV 89.0 (81.0-99.0) fL MCH 27.0 (26.7-34.0) pg MCHC 30.4 (29.9-35.2) g/dL RDW 15.8 H (11.0-15.0) % Plt Count 252 (150-450) 10^3/uL MPV 11.5 (9.5-13.5) fL Seg Neuts % (Manual) 92.0 H (43.0-75.0) Lymphocytes % (Manual) 2.0 L (20.5-60.0) % Monocytes % (Manual) 6.0 (1.7-12.0) % Eosinophils % (Manual) 0.0 L (0.9-7.0) % Basophils % (Manual) 0.0 L (0.2-2.0) % Neutrophils # (Manual) 15.45 H (1.4-6.5) 10^3/uL Lymphocytes # (Manual) 0.33 L (1.20-3.80) 10^3/uL Abs Atypical Lymphs Man 0.00 Monocytes # (Manual) 1.00 H (0.30-0.80) 10^3/uL Eosinophils # (Manual) 0.00 (0.00-0.70) 10^3/uL Basophils # (Manual) 0.00 (0.00-0.10) 10^3/uL Sodium 135 L (136-145) mmol/L Potassium 4.9 (3.5-5.1) mmol/L Chloride 95 L (98-107) mmol/L Carbon Dioxide 29.6 (21.0-32.0) mmol/L Anion Gap 15.3 BUN 39.0 H (7.0-18.0) mg/dL Creatinine 1.75 H (0.55-1.02) mg/dL Est GFR ( Amer) 33 L (>=60 mL/min/1.73m^2) Est GFR (Non-Af Amer) 28 L (>=60 mL/min/1.73m^2) BUN/Creatinine Ratio 22.3 Glucose 168 H (74-106) mg/dL Calcium 8.8 (8.5-10.1) mg/dL Troponin I High Sens 38.3 (4.0-51.3) pg/mL Influenza Type A Ag Negative Influenza Type B Ag Negative SARS-CoV-2 Ag (CV2AG) Negative (NEGATIVE) Imaging Data CT scan - abdomen: Radiologist's impression: ITS Impressions Abdomen/Pelvis CT 08/14/24 22:55 IMPRESSION: 1. Included lung bases demonstrate stable chronic right lower lobe rounded atelectasis with some areas of chronic scarring. 2. Partial imaging of an enlarging left basilar pleural mass compared with 03/02/2023 now measuring up to 5 cm x 3.4 cm (previously measured at 2.4 x 1.4 cm. There are some changes suggesting this could reflect some rounded atelectasis but given growth, correlate with PET/CT and/or biopsy depending on results. Not mentioned above there is an adjacent chronic ununited posterior lateral lower left ninth rib fracture. This may contribute to rounded atelectasis. 3. There is some patchy interstitial changes at base of lingula and right middle lobe. Correlate for fluid overload. There remains moderate enlargement of cardiac silhouette. 4. No acute intra-abdominal or pelvic pathology. 5. Cholecystectomy. 6. Colonic diverticulosis without colitis or other acute bowel pathology. 7. Other chronic and incidental findings as discussed. Electronically authenticated by: FAB MATTHEWS Date: 08/14/2024 23:40 ECG Data Attestation: I personally reviewed and interpreted this ECG as follows: (EKG on my interpretation shows atrial fibrillation with a rate of 145) Discharge Plan Discharge Chief Complaint: Nausea/Vomiting/Diarrhea Clinical Impression: Nausea, vomiting, and diarrhea, Dehydration Patient Disposition: Admitted as Observation Time of Disposition Decision: 23:54 Condition: Fair Prescriptions / Home Meds: No Action oxycodone-acetaminophen [Percocet] 5-325 mg tablet 1 tab PO Q8H PRN (Reason: pain) 4 Days Qty: 10 0RF alprazolam 0.25 mg tablet 0.25 mg PO Q6H PRN (Reason: anxiety) atorvastatin 20 mg tablet 20 mg PO QPM bupropion HCl 150 mg tablet sustained-release 12 hr 150 mg PO BID digoxin 125 mcg (0.125 mg) tablet 0.125 mg PO .QOD insulin lispro protamin-lispro 100 unit/mL (75-25) insulin pen 8 unit SUBCUT BID omeprazole 40 mg capsule,delayed release(DR/EC) 40 mg PO DAILY ropinirole 0.25 mg tablet 0.25 mg PO QPM torsemide 20 mg tablet 20 mg PO DAILY escitalopram oxalate 10 mg tablet 10 mg PO DAILY gabapentin 100 mg capsule 100 mg PO TID carvedilol [Coreg] 12.5 mg tablet 12.5 mg PO BID Qty: 60 0RF Rx Instructions: must administer with a meal/food spironolactone [Aldactone] 25 mg tablet 25 mg PO DAILY Qty: 30 0RF Print Language: Macedonian Referrals: JHONATAN LUCIA [Primary Care Provider] - 1 week
[2024-08-14 21:56] LABS: Hematocrit 31.6 % (36.0-48.0); Hemoglobin 9.6 g/dL (12.0-16.0); Mean Corpuscular HGB Conc 30.4 g/dL (29.9-35.2); Mean Platelet Volume 11.5 fL (9.5-13.5); Platelet Count 252 10^3/uL (150-450); Red Blood Count 3.55 10^6/uL (4.20-5.40); Red Cell Distribution Width 15.8 % (11.0-15.0); White Blood Count 16.8 10^3/uL (4.0-11.0)
[2024-08-14 22:14] LABS: Anion Gap 15.3; BUN Creatinine Ratio 22.3; Calcium 8.8 mg/dL (8.5-10.1); Carbon Dioxide 29.6 mmol/L (21.0-32.0); Chloride 95 mmol/L (98-107); Estimated GFR (African America 33 (>=60 mL/min/1.73m^2); Estimated GFR (Non-African Ame 28 (>=60 mL/min/1.73m^2); Glucose 168 mg/dL (74-106); Potassium 4.9 mmol/L (3.5-5.1); Sodium 135 mmol/L (136-145); Troponin I High Sensitivity 38.3 pg/mL (4.0-51.3)
[2024-08-14 22:16] LABS: Lymphocytes Absolute Manual 0.33 10^3/uL (1.20-3.80); Segmented Neut Absolute Manual 15.45 10^3/uL (1.4-6.5)
[2024-08-14] MEDS: ONDANSETRON PF 4 MG/2 ML VIAL IV (22:52)
--- NOTE | 2024-08-14 22:55 | CT_ITS ---
The [address] [address] Patient Name: KATHY VILLEGAS MRN: [id number] date: 1940 Sex: F Assigned Patient Location: ER Current Patient Location: ER Accession/Order Number: [id number] Exam Date: 08/14/2024 23:05 Report Date: 08/14/2024 23:40 At the request of: GRACY PICHARDO Procedure: CT abdomen pelvis wo con CT ABDOMEN PELVIS WITHOUT CONTRAST HISTORY: Vomiting COMPARISON: CT abdomen and pelvis without 03/02/2023. CT chest without 03/02/2023. TECHNIQUE: Thin section axial CT images were obtained from the lung bases to the pubis symphysis. This CT exam was performed using one or more of the following dose reduction techniques: Automated exposure control, adjustment of the mA and/or kV according to patient size, or use of iterative reconstruction technique. Thin section coronal and sagittal images were reconstructed from the axial data set. All images were reviewed and interpreted. CONTRAST: None. FINDINGS: Assessment of solid organs is limited without the benefit of IV contrast. LUNG BASES: Correlation with CT chest from 03/02/2023 there is persistent rounded atelectasis at right lower lobe largely unchanged. There is enlarging pleural-based mass at left lower lobe. Prior study from 03/02/2023 demonstrated pleural-based 2.4 x 1.4 cm lesion. There is a complete imaging of pleural mass on today's study but this now extends at least 5 cm x 3.4 cm. Uncertain if this represents left lower lobe rounded atelectasis and possibly other pleural fluid. Delayed growth, recommend PET/CT descending undissolved. Sternotomy with moderate cardiac chamber enlargement again noted. Calcifications of mitral valve. Scattered interstitial changes at lung bases with scarring which is chronic. Patchy ill-defined infiltrate in the lingula. GE JUNCTION AND STOMACH: Negative. No hiatal hernia. LIVER: Negative. GALLBLADDER AND BILIARY TREE: Cholecystectomy. No intrahepatic bile duct distention. Stable mild prominence of common bile duct following cholecystectomy. SPLEEN: Negative. PANCREAS: Negative. ADRENALS: Negative. KIDNEYS AND URETERS: Negative. No urinary tract calculi or hydronephrosis. No renal masses or cysts are evident. SMALL BOWEL: Negative. LARGE BOWEL: There is scattered colonic diverticulosis. No colitis or large bowel distention. APPENDIX: Low-lying cecum. The appendix is not clearly identified and there are no secondary findings to suggest acute appendicitis. AORTA: Normal caliber aorta and iliac arteries with severe atherosclerotic calcific plaque throughout wall of aorta and iliac arteries and takeoff of mesenteric arteries and prominent at origin of both right and left renal arteries. IVC: Negative. LYMPH NODES: There is no lymphadenopathy. BLADDER: Normal bladder. BONES: Treated old superior endplate compression fracture with retropulsion at T12. No acute fractures. Osteoporosis suspected. No lytic or blastic lesion. Well-preserved joints. Lower thoracic degenerative disc disease. COMMENTS: No ascites. No free air. CT/CT abdomen pelvis wo con IMPRESSION: 1. Included lung bases demonstrate stable chronic right lower lobe rounded atelectasis with some areas of chronic scarring. 2. Partial imaging of an enlarging left basilar pleural mass compared with 03/02/2023 now measuring up to 5 cm x 3.4 cm (previously measured at 2.4 x 1.4 cm. There are some changes suggesting this could reflect some rounded atelectasis but given growth, correlate with PET/CT and/or biopsy depending on results. Not mentioned above there is an adjacent chronic ununited posterior lateral lower left ninth rib fracture. This may contribute to rounded atelectasis. 3. There is some patchy interstitial changes at base of lingula and right middle lobe. Correlate for fluid overload. There remains moderate enlargement of cardiac silhouette. 4. No acute intra-abdominal or pelvic pathology. 5. Cholecystectomy. 6. Colonic diverticulosis without colitis or other acute bowel pathology. 7. Other chronic and incidental findings as discussed. Electronically authenticated by: FAB MATTHEWS Date: 08/14/2024 23:40
[2024-08-14 23:23] LABS: Influenza Virus A Antigen Negative; Influenza Virus B Antigen Negative; Internal Control Within Normal Limits
[2024-08-14 23:24] LABS: Internal Control Within Normal Limits; SARS-CoV-2 Ag NEGATIVE (NEGATIVE)
[2024-08-14] MEDS: LORAZEPAM 2 MG/ML VIAL 0.5 MG IV (23:56)
[2024-08-15] VITALS (11 sets, daily range): BP systolic 96–126; BP diastolic 56–79; PULSE 68–122; TEMP 36.4–36.8; O2SAT 91–97; BMI 3564.4
--- OUTSIDE RECORDS SUMMARY | 2024-08-15 01:02 | XMS_ITS | CCD ---
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 Engineer Name Role Phone GRETTA OMALLEY Admitting Unavailable [...] Unavailable JENNY MARQUEZ Consulting Unavailable DR JASVIR LÓEN Primary Care Unavailable NICK ., DR CORNEJO [...] Unavailwagner HAWKINS, DR MEENA Boucher Consulting Unavailable VAENSSA DALLAS Consulting Unavailable BRENT ZAIDI Consulting Unavailable [...] Unavailable Jasvir León MD Primary Care Provider [phone] KD HINES Admitting Unavailable BAHDK Judd Attending Unavailable JASVIR LEÓN Primary Care Unavailable KD HINES Attending Unavailable JASVIR LEÓN Primary Care Unavailable BAHJAYLAN JuddT M Admitting Unavailable JASVIR LEÓN Primary Care Unavailable BAHKD Judd Attending Unavailable JASVIR LEÓN Primary Care Unavailable JAYLAN HINEST M Admitting Unavailable JEWELL León Primary Care Provider DO Lalo Carter Admit Provider MD Javan Gruber Attending Provider [phone] Jasvir León MD Primary Care Provider Jasvir [...] LEÓN Attending Unavailable Latrice MALIK, Leora Unavailable [phone] DEON, HOMA Referring Unavailable CHAVARRIA, HOMA Referring [...] Translations: [CODEINE] Drug Allergy 4 abdominal pain [facility] Repository (5 sources) Penicillins; Translations: [PENICILLINS] Drug allergy (disorder) 2 rash [facility] Repository (1 source) penicillian Propensity to adverse reactions rash [employer] Other (1 source) codiene Propensity to adverse reactions abdominal pain [employer] Other (2 sources) sacubitril / valsartan Drug Allergy 2 [facility] Repository (12 sources) Codeine Drug Allergy 3 Other (See Comments) [facility] (1 source) Penicillins Propensity to adverse reactions to drug 3 Sita MICHAELS Work Phone: (13 sources) sacubitril / valsartan; Translations: [SACUBITRIL-ARJUN SARTAN] Drug Allergy 2 Sita MICHAELS (11 sources) Penicillin G Drug Allergy 3 Rash, Other [facility] (1 source) Codeine Drug Allergy 4 [facility] Repository (1 source) Penicillins Drug allergy (disorder) 4 [facility] Repository Medications Current Medications Medication Drug [...] mouth every four hours for pain HYDROcodone-acetaminophen (Cloudcroft) 5-325 MG tablet Indications: Spinal stenosis at L4-L5 level Take 1 tablet by mouth every 4 (four) hours if needed for severe pain for up to 10 days 60 tablet 06/27/2024 07/07/2024 Active Start: 05-08-2024 End: 05-18-2024 take 1 tablet by mouth every four hours for pain HYDROcodone-acetaminophen (Cloudcroft) 5-325 MG tablet Indications: Spinal stenosis at [...] tablet 1 11/02/2023 11/01/2024 Active Continuous Glucose Prospecting Driller (FreeStyle Marg[place]) device (1 source) Continuous Gluco se Prospecting Driller (FreeStyle Marguer[place] 2 [place]) device 1 Device Active Continuous Glucose Sensor [...] 11-21-2022 11-21-2022 Chronic Other aftercare (1 source) prison (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 of insulin; Translations: [PRISON CURRENT USE OF INSULIN] Onset: 11-21-2022 Episodic Other aftercare (1 source) prison (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 of aspirin; Translations: [PRISON CURRENT USE OF ASPIRIN] Onset: 11-21-2022 Episodic Other aftercare (1 source) Other group home (current) drug therapy; 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] Onset: 11-21-2022 Episodic Other [...] sources) Long-term current use of anticoagulant; Translations: [prison (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 of anticoagulants] Onset: 8 04-10-2023 [...] Interpretation Reference Range Facility Follow-Upon 07-25-2024 Follow-Up [id number] Jenni Quinones 1940 F Date Provider Department Center 07/25/2024 JOSEFINA STEIN Family History Problem Relation Age of Onset Diabetes Father Heart failure Father Other Other Family Status - Relation Status Age at Father Other Level of Service:01147 MT OFFICE/OUTPATIENT ESTABLISHED MOD MDM 30 MIN Normal [facility] ALL BASIC METABOLIC PANELon 07-22-2024 Anion [...] rate/Area] 36 Low >=60 mL/min/1.73 m 2 [facility] Glucose [Mass/Vol] 190 mg/dL High 74 - 106 mg/dL [facility] Interpretation and review of laboratory results Abnormal [facility] Potassium [Moles/Vol] 4.1 mmol/L 3.5 - 5.1 mmol/L [facility] Sodium [Moles/Vol] 139 mmol/L 136 - 145 mmol/L [facility] TBH EGFR-NON AF SWISS 30 Low >=60 mL/min/1.73 m 2 [facility] Urea nitrogen [Mass/Vol] 26 mg/dL High 7.0 - 18.0 mg/dL [facility] Urea nitrogen/Creatinine [Mass ratio] 15.9 mg/mg [facility] 36on 06-30-2024 36 Regarding CXR result from 06/23/2024: MD Mariaa Fernandes MA There is a rib fracture and possible lung infiltrates. Please ask that Dr León follows up on this. Spoke with patient and informed her I'd be faxed over the CXR to PCP. She will keep her apt with Dr. Nova on 07/25/2024. Normal [facility] 36on 06-25-2024 36 Regarding lab result s from 06/23/2024: MD Mariaa Fernandes MA Please have her change digoxin to every other day and spironolactone to half tablet daily. Obtain a follow-up BMP and digoxin level in 1 month. Patient informed. Lab orders mailed to her home. Awaiting CXR results. Normal [facility] ALL CBC WITH AUTO DIFFon BASOPHILS ABSOLUTE AUTO 0.1 [facility] Basophils/100 WBC (Bld) 0.6 % 0.2 - 2.0 % [facility] Eosinophils/100 WBC (Bld) 2.2 % 0.9 - 7.0 % [facility] Erythrocyte distribution width (RBC) [Ratio] 14.6 % 11.0 - 15.0 % [facility] Hematocrit (Bld) [Volume fraction] 37.4 % 36.0 - 48.0 % [facility] Hemoglobin (Bld) [Mass/Vol] 11.3 g/dL Low 12.0 - 16.0 g/dL [facility] IMMATURE GRANULOCYTES ABS AUTO 0.03 [facility] Immature granulocytes/100 WBC (Bld) 0.3 % 0.0 - 0.5 % [facility] Interpretation and review of laboratory results Abnormal [facility] LYMPHOCYTES ABSOLUTE AUTO 0.8 Low [facility] Lymphocytes/100 WBC (Bld) 7.9 % Low 20.5 - 60.0 % [facility] MCH (RBC) [Entitic mass] 28.6 pg 26.7 - 34.0 pg [facility] MCHC (RBC) [Mass/Vol] 30.2 g/dL 29.9 - 35.2 g/dL [facility] MCV (RBC) [Entitic vol] 94.7 fL 81.0 - 99.0 fL [facility] MONOCYTES ABSOLUTE AUTO 0.8 [facility] Monocytes/100 WBC (Bld) 8.9 % 1.7 - 12.0 % [facility] NEUTROPHILS ABSOLUTE AUTO 7.6 High [facility] Neutrophils/100 WBC (Bld) 80.1 % High 43.0 - 75.0 % [facility] Platelet mean volume (Bld) [Entitic vol] 9.5 fL 9.5 - 13.5 fL [facility] TBH EO # 0.2 [facility] TBH PLT 314 [facility] TB RBC 3.95 Low [facility] TB WBC 9.5 [facility] Office Visiton 06-23-2024 Follow-up visit [id number] Jenni Quinones 1940 F Date Provider Department Center 06/23/2024 JOSEFINA STEIN SYMONE [facility] Family History Problem Relation Age of Onset Diabetes Father Heart failure Father Other Other Family Status - Relation Status Age at Father Other Level of Service:40639 MT OFFICE/OUTPATIENT ESTABLISHED MOD MDM 30 MIN Normal [facility] 30on 06-11-2024 30 Daily Case Managemen t Update Multidisciplinary rounds have been completed. Barriers to Discharge: 06/11- POD 1 Underwent Successful [id number] transcatheter aortic valve replacement. 3 L NC, small hematoma on chest- stable. Echocardiogram reviewed showing trivial insufficiency. Valve is functioning well. Discharge now in/ appt scheduled. Diet: Dietary Orders (From admission, onward) Start Ordered 06/10/24 1194 Special Kitchen Request Once Comments: Hot roast [...] PT Recommendations: OT Recommendations: New Consults: Normal [facility] BASIC METABOLIC PANELon 12-0 Anion gap [Moles/Vol] 12 mmol/L Normal 7-20 [facility] Comment on above: Performed By: #### L [id number] #### [facility] ([facility]) [address] [place] [address] Calcium [Mass/Vol] 8.5 mg/dL Low 8.6-10.3 [facility] Comment on above: Performed By: #### L [id number] #### [facility] ([facility]) [address] [place] [address] Chloride [Moles/Vol] 104 mmol/L Normal 98-107 [facility] Comment on above: Performed By: #### L [id number] #### [facility] ([facility]) [address] [place] [address] CO2 [Moles/Vol] 24 mmol/L Normal 21-31 [facility] Comment on above: Performed By: #### L [id number] #### [facility] ([facility]) [address] [place] [address] Creatinine [Mass/Vol] 1.68 mg/dL High 0.60-1.20 [facility] Comment on above: Performed By: #### L [id number] #### [facility] ([facility]) [address] [place] [address] GLOMERULAR FILTRATION RATE ML/MIN/1.73 SQ M.PREDICTED 29.6 mL/min/1.73m*2 Low >60.0 [facility] Comment on above: Result Comment: [facility]???s estimated glomerular filtration rate (eGFR) will [...] individuals. Performed By: #### L [id number] #### [facility] ([facility]) [address] [place] [address] Glucose [Mass/Vol] 119 mg/dL High 70-100 [facility] Comment on above: Performed By: #### L [id number] #### [facility] ([facility]) [address] [place] [address] Potassium [Moles/Vol] 3.7 mmol/L Normal 3.5-5.1 [facility] Comment on above: Performed By: #### L [id number] #### [facility] ([facility]) [address] [place] [address] Sodium [Moles/Vol] 136 mmol/L Normal 136-145 [facility] Comment on above: Performed By: #### L [id number] #### [facility] ([facility]) [address] [place] [address] Urea nitrogen [Mass/Vol] 38 mg/dL High 7-25 [facility] Comment on above: Performed By: #### L [id number] #### [facility] ([facility]) [address] [place] [address] UREA NITROGEN/CREATININE (MASS RATIO) IN SER/PLAS 22.6 Normal [facility] Comment on above: Performed By: #### L [id number] #### [facility] ([facility]) [address] [place] [address] CBCon 06-11-2024 Erythrocyte distribution width (RBC) [Ratio] 14.9 % Normal 11.5-15.0 [facility] Comment on above: Performed By: #### L [id number] #### [facility] ([facility]) [address] [place] [address] ERYTHROCYTE MEAN CORPUSCULAR HEMOGLOBIN CONCENTRATION (G/DL) BY AUTOMATED 30.2 g/dL Low 32.0-35.0 [facility] Comment on above: Performed By: #### L [id number] #### [facility] ([facility]) [address] [place] [address] Hematocrit (Bld) [Volume fraction] 30.8 % Low 36.0-48.0 [facility] Comment on above: Performed By: #### L [id number] #### [facility] ([facility]) [address] [place] [address] Hemoglobin (Bld) [Mass/Vol] 9.3 g/dL Low 12.0-15.0 [facility] Comment on above: Performed By: #### L [id number] #### [facility] ([facility]) [address] [place] [address] MCH (RBC) [Entitic mass] 29.0 pg Normal 27.0-33.0 [facility] Comment on above: Performed By: #### L [id number] #### [facility] ([facility]ER) [address] [place] [address] MCV (RBC) [Entitic vol] 96.0 fL Normal 82.0-98.0 [facility] Comment on above: Performed By: #### L [id number] #### [facility] ([facility]) [address] [place] [address] PLATELETS (10*3/UL) IN BLOOD AUTOMATED COUNT 221 10*3/uL Normal 150-400 [facility] Comment on above: Performed By: #### L [id number] #### [facility] ([facility]) [address] [place] [address] RBC (Bld) [#/Vol] 3.21 10*6/uL Low 3.80-5.00 [facility] Comment on above: Performed By: #### L [id number] #### [facility] ([facility]) [address] [place] [address] WBC (Bld) [#/Vol] 8.78 10*3/uL Normal 4.00-10.60 [facility] Comment on above: Performed By: #### L [id number] #### [facility] ([facility]) [address] [place] [address] DSon 06-11-2024 DS ----- ----- Attestation with [...] Your Medications These medications were sent to [id number] - [place], [place] - [address] [facility] [address] [place] [address] clopidogrel 75 mg tablet Activity Normal activity [...] She has history of prior admissions to [facility] with AF/RVR and diastolic heart failure [...] tenderness. Abdo (more content not included)... Normal [facility] MAGNESIUMon 06-11-2024 Magnesium [Mass/Vol] 2.3 mg/dL Normal 1.9-2.7 [facility] Comment on above: Performed By: #### L [id number] #### [facility] ([facility]) [address] [place] [address] POCT GLUCOSE METER UNSOLICIT ED RESULTSon 06-11-2024 Glucose [Mass/Vol] 121 mg/dL High 70-105 [facility] Comment on above: Order Comment: Waive d Testing in the ED is performed under the ED CLIA certificate #[id number]. Result Comment: vmel mikhail Performed By: #### L [id number] ####[facility] (BEAKER)[address] [place] [address] BASIC METABOLIC PANELon 12-0 Anion gap [Moles/Vol] 11 mmol/L Normal 7-20 [facility] Comment on above: Performed By: #### L [id number] ####[facility] ([facility])[address] [place] [address] Calcium [Mass/Vol] 8.5 mg/dL Low 8.6-10.3 [facility] Comment on above: Performed By: #### L [id number] ####[facility] ([facility])[address] [place] [address] Chloride [Moles/Vol] 103 mmol/L Normal 98-107 [facility] Comment on above: Performed By: #### L [id number] ####[facility] ([facility])[address] [place] [address] CO2 [Moles/Vol] 26 mmol/L Normal 21-31 [facility] Comment on above: Performed By: #### L [id number] ####[facility] ([facility])[address] [place] [address] Creatinine [Mass/Vol] 1.68 mg/dL High 0.60-1.20 [facility] Comment on above: Performed By: #### L [id number] ####[facility] ([facility])[address] [place] [address] GLOMERULAR FILTRATION RATE ML/MIN/1.73 SQ M.PREDICTED 29.6 mL/min/1.73m*2 Low >60.0 [facility] Comment on above: Result Comment: [facility]???s estimated glomerular filtration rate (eGFR) will [...] of individuals. Performed By: #### L [id number] ####[facility] ([facility])[address] [place] [address] Glucose [Mass/Vol] 107 mg/dL High 70-100 [facility] Comment on above: Performed By: #### L [id number] ####[facility] ([facility])[address] [place] [address] Potassium [Moles/Vol] 3.9 mmol/L Normal 3.5-5.1 [facility] Comment on above: Performed By: #### L [id number] ####[facility] ([facility])[address] [place] [address] Sodium [Moles/Vol] 136 mmol/L Normal 136-145 [facility] Comment on above: Performed By: #### L [id number] ####[facility] ([facility])[address] [place] [address] Urea nitrogen [Mass/Vol] 41 mg/dL High 7-25 [facility] Comment on above: Performed By: #### L [id number] ####[facility] ([facility])[address] [place] [address] UREA NITROGEN/CREATININE (MASS RATIO) IN SER/PLAS 24.4 Normal [facility] Comment on above: Performed By: #### L [id number] ####[facility] ([facility])[address] [place] [address] CONSULTon 06-10-2024 CONSULT Surgical Intensive C are [...] She has history of prior admissions to [facility] with AF/RVR and diastolic heart failure [...] drugs. Family History: pulled available information in [facility] from previous visits Family History Problem [...] femoral/radial/DP pulses (more content not included)... Normal [facility] HPon 06-10-2024 HP H&P reviewed. The pa marilyn was examined and there are no changes to the H&P. Normal [facility] NURSNOTEon 06-10-2024 NURSNOTE Report given to [...] coming up to the floor soon. Normal [facility] NURSNOTE CHG wipes and betadi ne nasal swabs completed. Normal [facility] POCT GLUCOSE METER UNSOLICIT ED RESULTSon 06-10-2024 Glucose [Mass/Vol] 170 mg/dL High 70-105 [facility] Comment on above: Order Comment: Waive d Testing in the ED is performed under the ED CLIA certificate #[id number]. Result Comment: [email or web address] Performed By: #### L [id number] #### [facility] ([facility]) [address] [place] [address] Glucose [Mass/Vol] 124 mg/dL High 70-105 [facility] Comment on above: Order Comment: Waive d Testing in the ED is performed under the ED CLIA certificate #[id number]. Result Comment: asko rigoberto Performed By: #### L [id number] ####[facility] (BEAKER)[address] [place] [address] TYPE AND SCREENon 06-10-2024 AB SCREEN Negative Normal [facility] Comment on above: Performed By: #### L [id number] #### [facility] , ABO group Nom (Bld) A Normal [facility] Comment on above: Performed By: #### L [id number] #### [facility] , RH TYPE IN BLOOD Negative [facility] Comment on above: Performed By: #### L [id number] #### [facility] , Telephoneon 06-03-2024 Telephone [id number] QuinonesJenni M 1940 F Date Provider Department Center 06/03/2024 [id number] [place] [facility] Family History Problem Relation Age of Onset Diabetes Father Heart failure Father Other Other Family Status - Relation Status Age at Father Other Reason for Visit and Comments: Dental clearance reminder [Other] Normal [facility] CMP (CMP) (FOR REMOTE FH C USE)on 06-02-2024 Albumin [Mass/Vol] 3.1 g/dL Low 3.4 - 5.0 g/dL [facility] ALBUMIN GLOBULIN RATIO 0.6 [facility] ALP [Catalytic activity/Vol] 109 U/L 46 - 116 U/L [facility] ALT [Catalytic activity/Vol] 9 U/L Low 14 - 59 U/L [facility] Anion gap [Moles/Vol] 15.4 mmol/L [facility] AST [Catalytic activity/Vol] 12 U/L Low 15 [...] rate/Area] 29 Low >=60 mL/min/1.73 m 2 [facility] Globulin (S) [Mass/Vol] 5.5 g/dL [facility] Glucose [Mass/Vol] 95 mg/dL 74 - 106 mg/dL [facility] Interpretation and review of laboratory results Abnormal [facility] Potassium [Moles/Vol] 4.3 mmol/L 3.5 - 5.1 mmol/L [facility] Protein [Mass/Vol] 8.6 g/dL High 6.4 - 8.2 g/dL [facility] Sodium [Moles/Vol] 140 mmol/L 136 - 145 mmol/L [facility] TBH EGFR-NON AF SWISS 24 Low >=60 mL/min/1.73 m 2 [facility] Urea nitrogen [Mass/Vol] 34 mg/dL High 7.0 - 18.0 mg/dL [facility] Urea nitrogen/Creatinine [Mass ratio] 17.1 mg/mg [facility] HPon 06-02-2024 [facility] Cardiology - [facility] Subjective Jennierick Quinones is a 84 y.o. year old female patient being seen to discuss TAVR. Patient Active Problem List Diagnosis Anemia Diastolic heart failure (CMS/HCC) Dyspnea Hyperlipemia Mitral and aortic incompetence Atrial fibrillation with rapid ventricular response ([facility]) Abnormal gait Abnormal laboratory test result Acquired hypothyroidism Acute on chronic systolic heart failure (CMS/HCC) Allergic rhinitis due to pollen Aortic valve disorder Asthma Chronic obstructive pulmonary disease (CMS/HCC) Diabetic renal disease (CMS/HCC) Difficulty walking Diverticulosis of colon Drug-induced constipation History of iron deficiency Heart valve transplanted Hyperthyroidism prison current use of anticoagulant therapy Mixed anxiety [...] She has history of prior admissions to [facility] with AF/RVR and diastolic heart failure [...] artery disease (more content not included)... Normal [facility] Office Visiton 06-02-2024 Follow-up visit [id number] Jenni Quinones 1940 F Date Provider Department Center 06/02/2024 Rocky-JOSEFINA NOVA CARD [facility] Family History Problem Relation Age of Onset Diabetes Father Heart failure Father Other Other Family Status - Relation Status Age at Father Other Level of Service:30182 MT OFFICE/OUTPATIENT ESTABLISHED HIGH MDM 40 MIN Normal [facility] Orders Onlyon 05-30-2024 Orders Only [id number] Jenni Quinones 1940 Date Provider Department Center 05/30/2024 Zohra-HOMA CHAVARRIA Judah CARD [facility] Family History Problem Relation Age of Onset Diabetes Father Heart failure Father Other Other Family Status - Relation Status Age at Father Other Normal [facility] CTA ABDOMEN PELVIS W IV CONT [...] signed: Meena Lopes. Yaneth Invalid Interpretation Code [facility] CTA CHEST W IV CONTRASTon CTA [...] signed: Meena Lopes. Yaneth Invalid Interpretation Code [facility] Comment on above: Order Comment: Low d ose contrast (40 ml) Consulton 05-29-2024 Consult [id number] Jenni Quinones 1940 F Date Provider Department Center 05/29/202457817-EQNBAUCRAIG BRAUN HVCTS [facility] Family History Problem Relation Age of Onset Diabetes Father Heart failure Father Other Other Family Status - Relation Status Age at Father Other Level of Service:50734 MT OFFICE/OP CONSLTJ NEW/EST PT HIGH MDM 55 MINUTES Reason for Visit and Comments: New Patient [632[facility]. The zoey sanders was [...] wishes to proceed. Kisha Durand MD PGY-6 Assistant Finance Director [facility] ----- ----- Attestation signed by Pankaj Todd MD at 05/27/2024 11:30 AM I personally saw and examined the patient on the same date of service as resident/fellow Dr ospina. I discussed the findings and therapeutic plan with the resident/fellow Dr ospina. I agree with the documentation, except for any edits/updates below. Teaching Physician's Revisions: None Pankaj Todd MD, [facility] ----- H&P reviewed. The patient was examined and there are no changes to the H&P. The procedure was explained to the patient. The risks and benefits of the procedure were explained to the patient who showed understanding and with full capacity elected to proceed with the procedure. All questions were addressed and answered. Yanet Ospina MD Assistant Finance Director - PGY6 [facility] NURSNOTEon 05-27-2024 NURSNOTE RN educated pt on [...] off of unit with all of belongings. [facility] NURSNOTE Bedside swallow stud y completed and passed. [facility] Orders Onlyon 05-27-2024 Orders Only [id number] Jenni Quinones 1940 F Date Provider Department Center 05/27/2024 Zohra-HOMA [facility]RI[facility] CARD [facility] Family History Problem Relation Age of Onset Diabetes Father Heart failure Father Other Other Family Status - Relation Status Age at Father Other [facility] ALL BASIC METABOLIC PANELon 05-26-2024 Anion gap [Moles/Vol] 11.9 mmol/L [facility] Calcium [Mass/Vol] 9.4 mg/dL 8.5 - 10. 1 mg/dL [facility] Chloride [Moles/Vol] 98 mmol/L 98 - 10 7 mmol/L [facility] CO2 [Moles/Vol] 34.2 mmol/L High 21.0 - 32.0 mmol/L [facility] Creatinine [Mass/Vol] 1.89 mg/dL High 0.55 - 1.02 mg/dL [facility] [facility] GFR/1.73 sq M.predicted CKD-EPI (S/P/Bld) [Vol rate/Area] 31 Low >=60 mL/min/1.73 m 2 [facility] Glucose [Mass/Vol] 106 mg/dL 74 - 106 mg/dL [facility] Interpretation and review of laboratory results Abnormal [facility] Potassium [Moles/Vol] 4.1 mmol/L 3.5 - 5.1 mmol/L [facility] Sodium [Moles/Vol] 140 mmol/L 136 - 145 mmol/L [facility] TBH EGFR-NON AF SWISS 25 Low >=60 mL/min/1.73 m 2 [facility] Urea nitrogen [Mass/Vol] 38 mg/dL High 7.0 - 18.0 mg/dL [facility] Urea nitrogen/Creatinine [Mass ratio] 20.1 mg/mg [facility] ALL CBC WITH AUTO DIFFon BASOPHILS ABSOLUTE AUTO 0.1 [facility] Basophils/100 WBC (Bld) 0.7 % 0.2 - 2.0 % [facility] Eosinophils/100 WBC (Bld) 2.4 % 0.9 - 7.0 % [facility] Erythrocyte distribution width (RBC) [Ratio] 16 % High 11.0 - 15.0 % [facility] Hematocrit (Bld) [Volume fraction] 37.4 % 36.0 - 48.0 % [facility] Hemoglobin (Bld) [Mass/Vol] 11.4 g/dL Low 12.0 - 16.0 g/dL [facility] IMMATURE GRANULOCYTES ABS AUTO 0.03 [facility] Immature granulocytes/100 WBC (Bld) 0.3 % 0.0 - 0.5 % [facility] Interpretation and review of laboratory results Abnormal [facility] LYMPHOCYTES ABSOLUTE AUTO 0.8 Low [facility] Lymphocytes/100 WBC (Bld) 7.3 % Low 20.5 - 60.0 % [facility] MCH (RBC) [Entitic mass] 29.3 pg 26.7 - 34.0 pg [facility] MCHC (RBC) [Mass/Vol] 30.5 g/dL 29.9 - 35.2 g/dL [facility] MCV (RBC) [Entitic vol] 96.1 fL 81.0 - 99.0 fL [facility] MONOCYTES ABSOLUTE AUTO 1.1 High [facility] Monocytes/100 WBC (Bld) 10.3 % 1.7 - 12.0 % [facility] NEUTROPHILS ABSOLUTE AUTO 8.4 High [facility] Neutrophils/100 WBC (Bld) 79 % High 43.0 - 75.0 % [facility] Platelet mean volume (Bld) [Entitic vol] 9.6 fL 9.5 - 13.5 fL [facility] TB EO # 0.3 [facility] Healthcare TB PLT 273 [facility] Healthcare TB RBC 3.89 Low [facility] Healthcare TB WBC 10.7 [facility] Healthcare Orders Onlyon 05-23-2024 Orders Only [id number] Jenni Quinones 1940 F Date Provider Department [place] 05/23/2024 CHAYO TRAN [facility] VASC LAB [facility] Family History Problem Relation Age of Onset Diabetes Father Heart failure Father Other Other Family Status - Relation Status Age at Father Other Normal [facility] HP 05-13-2024 Cardiovascular Medic [facility] SUBJECTIVE Chief Complaint Patient presents with [...] c/o chest pain. She was transferred to [facility] for further cardiac care. 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 Normal [facility] Office Visiton 05-13-2024 Follow-up visit [id number] Jenni Quinones 1940 F Date Provider Department Center 05/13/2024 BRENT PÉREZ CARD [facility] Family History Problem Relation Age of Onset Diabetes Father Heart failure Father Other Other Family Status - Relation Status Age at Father Other Level of Service:09352 MT OFFICE/OUTPATIENT ESTABLISHED HIGH [facility] 40 MIN Reason for Visit and Comments: Valve Disorder [3372] Congestive Heart Failure [127] Normal [facility] STR cardiac stress/lexiscano n 04-27-2024 STR cardiac stress/lexiscan [facility] [place] [address] Cardiac Stress Test Signed Patient: Jenni Quinones MR#: [id number] 0 : 1940 Acct:[id number] Age/Sex: 84 / F ADM Date: 04/25/24 Loc: Room: [address] [place] [address] Type: DIS IN Attending Dr: Javan Gruber [...] 1507 Dictated By: Palmira Lowery MD, [facility] 04/27/24 1606 Signed By: 05/01/24 1218 Normal [facility] A1C with Estimated Average G jaylin 04-25-2024 Glucose [Mass/Vol] 171 mg/dL Normal [facility] Comment on above: Result Comment: PERF ORMED BY: [place] [address] PATHOLOGIST ELECTRICAL AUTOMATION ENGINEER ALVARO LEWIS M.D. Performed By: #### M G, LIPID, A1C WT eA, BMP, HEPATIC #### [place] [id number] [facility] Activated partial thrombopla stin time (aPTT) in platelet poor plasma by coagulation aOrdered By: Lalo Carter on 04-25-2024 aPTT Coag (PPP) [Time] 30.0 s 25.1-36.5 [facility] Comment on above: A hematocrit value g reater than 55% may lead to inaccurate results in coagulation testing. Patients having hematocrit values >55% require a special collection tube for coagulation studies. Please contact the laboratory at [phone] for redraw instructions. Alanine aminotransferase [En zymatic activity/volume] in Serum or PlasmaOrdered By: Lalo Carter on 04-25-2024 ALT [Catalytic activity/Vol] 7 U/L Normal 7-52 [facility] Comment on above: Order Comment: FASTI NG Y Performed By: #### M G, LIPID, A1C WTH eA, BMP, HEPATIC #### [address] [address] [facility] Albumin [Mass/volume] in Ser um or Plasma by Bromocresol green (BCG) dye binding methoOrdered By: Lalo Carter on 04-25-2024 Albumin BCG dye [Mass/Vol] 3.1 g/dL Low 3.5-5.7 [facility] Alkaline phosphatase [Enzyma tic activity/volume] in Serum or PlasmaOrdered By: Lalo Carter on 04-25-2024 ALP [Catalytic activity/Vol] 78 U/L Normal 34-104 [facility] Comment on above: Order Comment: FASTI NG Y Performed By: #### M G, LIPID, A1C WTH eA, BMP, HEPATIC #### [address] Aspartate aminotransferase [ Enzymatic activity/volume] in Serum or PlasmaOrdered By: Lalo Carter on 04-25-2024 AST [Catalytic activity/Vol] 13 U/L Normal 13-39 [facility] Comment on above: Order Comment: FASTI NG Y Performed By: #### M G, LIPID, A1C WTH eA, BMP, HEPATIC #### [address] Automated basophil %Ordered By: Lalo Carter on 04-25-2024 Basophils/100 WBC (Bld) 0.8 % Normal . [facility] Comment on above: Performed By: #### M G, LIPID, A1C WTH eA, BMP, HEPATIC #### [facility] [address] [place] [address] Automated basophil countOrde red By: Lalo Carter on 04-25-2024 Basophils (Bld) [#/Vol] 0.1 10*3/uL Normal 0.0-0.2 [facility] Comment on above: Result Comment: PERF ORMED BY: [place] [address] PATHOLOGIST ELECTRICAL AUTOMATION ENGINEER ALVARO LEWIS M.D. Performed By: #### M G, LIPID, A1C WTH eA, BMP, HEPATIC #### [address] Automated blood monocyte cou ntOrdered By: Lalo Carter on 04-25-2024 Monocytes (Bld) [#/Vol] 0.8 10*3/uL Normal 0.0-0.8 [facility] Comment on above: Performed By: #### M G, LIPID, A1C WTH eA, BMP, HEPATIC #### [facility] [address] Automated eosinophil %Ordere d By: Lalo Carter on 04-25-2024 Eosinophils/100 WBC (Bld) 2.9 % Normal . [facility] Comment on above: Performed By: #### M G, LIPID, A1C WTH eA, BMP, HEPATIC #### [facility] [address] Automated eosinophil countOr dered By: Lalo Carter on 04-25-2024 Eosinophils (Bld) [#/Vol] 0.3 10*3/uL Normal 0.0-0.45 [facility] Comment on above: Performed By: #### M G, LIPID, A1C WTH eA, BMP, HEPATIC #### [facility] [address] [place] [address] Automated monocyte %Ordered By: Lalo Carter on 04-25-2024 Monocytes/100 WBC (Bld) 8.7 % Normal . [facility] Comment on above: Performed By: #### M G, LIPID, A1C WTH eA, BMP, HEPATIC #### [facility] [address] [place] [address] Automated neutrophil %Ordere d By: Lalo Carter on 04-25-2024 Neutrophils/100 WBC (Bld) 79.6 % Normal . [facility] Comment on above: Performed By: #### M G, LIPID, A1C WTH eA, BMP, HEPATIC #### [facility] [address] [place] [address] Basic Metabolic Panelon 04-08 Creatinine Clr Calc Pharmacy 32.54 Normal [facility] Comment on above: Order Comment: FASTI NG Y Performed By: #### M G, LIPID, A1C WTH eA, BMP, HEPATIC #### [facility] [address] [place] [address] GFR/1.73 sq M.predicted MDRD (S/P/Bld) [Vol rate/Area] 44.359 mL/min/{1.73_m2} Normal [facility] Comment on above: Order Comment: FASTI NG Y Performed By: #### M G, LIPID, A1C WTH eA, BMP, HEPATIC #### [facility] [address] [place] [address] Bilirubin.direct [Mass/volum e] in Serum or PlasmaOrdered By: Lalo Carter on 04-25-2024 Bilirubin.direct [Mass/Vol] 0.10 mg/dL 0.03-0.18 [facility] Bilirubin.total [Mass/volume ] in Serum or PlasmaOrdered By: Lalo Carter on 04-25-2024 Bilirubin [Mass/Vol] 0.5 mg/dL Normal 0.3-1.0 [facility] Comment on above: Order Comment: FASTI NG Y Performed By: #### M G, LIPID, A1C WTH eA, BMP, HEPATIC #### [facility] [address] [place], [place] [id number] [facility] CT angio chest PE protocolon 04-25-2024 CT angio chest PE protocol [facility] [place] [address] [place] [address] CT Scan Report Signed Patient: Jenni Quinones MR#: [id number] 0 : 1940 Acct:[id number] Age/Sex: 84 / F ADM Date: 04/25/24 Loc: Room: [address] [place] [address] Type: ADM IN Attending Dr: Lalo Carter [...] AND HILAR LYMPHADENOPATHY. Impression dictated by: Rosina eLvin M.D.04/25/2024 8:30 AM Dictation Location: [place] [address] Transcribed By: [facility] 04/25/24829 Dictated By: Rosina Levin MD 04/25/24805 Signed By: 04/25/24829 Normal [facility] Calcium [Mass/volume] in Ser um or PlasmaOrdered By: Lalo Carter on 04-25-2024 Calcium [Mass/Vol] 8.4 mg/dL Low 8.6-10.3 [facility] Comment on above: Order Comment: FASTI NG Y Performed By: #### M G, LIPID, A1C WTH eA, BMP, HEPATIC #### [facility] [address] [place] [id number] [facility] Capillary blood glucose mer urement by glucometer (mass/volume)Ordered By: Javan Gruber on 04-25-2024 Glucose [Mass/Vol] 108 mg/dL Normal [facility] Comment on above: Random Glucose Refer ence Range is dependent on time and content of last meal. Glucose of more than 200 mg/dL in a nonstressed, ambulatory subject supports the diagnosis of Diabetes Mellitus. Result Comment: Ada om Glucose Reference Range is dependent on time and content of last meal. Glucose of more than 200 mg/dL in a nonstressed, ambulatory subject supports the diagnosis of Diabetes Mellitus. Performed By: #### M G, LIPID, A1C WTH eA, BMP, HEPATIC #### [facility] [address] [place] [id number] [place] Carbon dioxide, total [Moles /volume] in Serum or PlasmaOrdered By: Lalo Carter on 04-25-2024 CO2 [Moles/Vol] 30.3 mmol/L Normal 21.0-31.0 [facility] Comment on above: Order Comment: FASTI NG Y Performed By: #### M G, LIPID, A1C WTH eA, BMP, HEPATIC #### [facility] [address] [place] [id number] [place] Chloride [Moles/volume] in S theresa or PlasmaOrdered By: Lalo Carter on 04-25-2024 Chloride [Moles/Vol] 102 mmol/L Normal 98-107 [facility] Comment on above: Order Comment: FASTI NG Y Performed By: #### M G, LIPID, A1C WTH eA, BMP, HEPATIC #### [facility] [address] [place] [id number] [place] Cholesterol [Mass/volume] in Serum or PlasmaOrdered By: Lalo Carter on 04-25-2024 Cholesterol [Mass/Vol] 88 mg/dL Low 140-200 [facility] Comment on above: Chol less than 200 m g/dl low riskChol 201-239 mg/dl borderline riskChol 240 mg/dl and greater high risk Order Comment: FASTI NG Y Result Comment: Chol less than 200 mg/dl low risk Chol 201-239 mg/dl borderline risk Chol 240 mg/dl and greater high risk Performed By: #### M G, LIPID, A1C WTH eA, BMP, HEPATIC #### [facility] [address] [place] [address] [place] Cholesterol in LDL Calc [Mas s/Vol]Ordered By: Lalo Carter on 04-25-2024 Cholesterol in LDL [Mass/Vol] 36 mg/dL 0-100 [facility] Comment on above: LDL ATP III CLASSIFI CATIONLDL less than 100 mg/dL OptimalLDL 100-129 mg/dL Near or above optimalLDL 130-159 mg/dL Borderline highLDL 160-189 mg/dL HighLDL greater than 189 mg/dL Very high Cholesterol in VLDL Calc [Ma ss/Vol]Ordered By: Lalo Carter on 04-25-2024 Cholesterol in VLDL [Mass/Vol] 18 mg/dL [facility] Complete Blood Count Auto Di ffon 04-25-2024 Mean Corpuscular HGB Conc 32.8 g/dL Normal 32.0-35.0 [facility] Comment on above: Performed By: #### M G, LIPID, A1C WTH eA, BMP, HEPATIC #### [facility] [address] [place] [address] [place] NRBC% 0.1 /100{WBC} Normal 0-0.5 [facility] Comment on above: Performed By: #### M G, LIPID, A1C WTH eA, BMP, HEPATIC #### [facility] [address] [place] [address] [place] Creatinine [Mass/volume] in Serum or PlasmaOrdered By: Lalo Carter on 04-25-2024 Creatinine [Mass/Vol] 1.20 mg/dL Normal 0.60-1.20 [facility] Comment on above: Order Comment: FASTI NG Y Performed By: #### M G, LIPID, A1C WT eA, BMP, HEPATIC #### [address] ECG 12 lead ECGon 04-25-2024 ECG 12 lead ECG [facility] [place] [address] Electrocardiograph Report Signed Patient: Jenni Quinones MR#: [id number] 0 : 1940 Acct:[id number] Age/Sex: 84 / F ADM Date: 04/25/24 Loc: 4C Room: [address] [place] [address] Type: DIS IN Attending Dr: Javan Gruber [...] ECGs available Confirmed by SEBASTIÁN MOULTON [facility] [place] ([id number]) on 04/25/2024 5:26:27 PM Referred By: Electronically Signed By: [place] LOWERY MD [facility] Transcribed By: MUS Signed By Palmira Lowery MD, [facility] 04/25/24 1726 Normal [facility] ECH echo transthoracicon ECH echo transthoracic [facility] [place] [address] Echocardiogram Signed Patient: Jenni Quinones MR#: [id number] 0 : 1940 Acct:[id number] Age/Sex: 84 / F ADM Date: 04/25/24 Loc: Room: [address] [place] [address] Type: DIS IN Attending Dr: Javan Gruber MD Ordering Provider: aLlo Carter DO Date of Service: 04/25/24 ECH/ECH echo transthoracic: history of aortic insufficiency. Copies to: [facility], [facility] Lalo L BrianDO kimi Weight: 166 lb [...] [place] (more content not included)... Normal [facility] Erythrocyte distribution wid th [Ratio] by Automated countOrdered By: Lalo Carter on 04-25-2024 Erythrocyte distribution width (RBC) [Ratio] 18.3 % High 11.9-15.3 [facility] Comment on above: Performed By: #### M G, LIPID, A1C WTH eA, BMP, HEPATIC #### [facility] [address] Erythrocytes [#/volume] in B lood by Automated countOrdered By: Lalo Carter on 04-25-2024 RBC (Bld) [#/Vol] 3.18 10*6/uL Low 3.60-5.00 [facility] Comment on above: Performed By: #### M G, LIPID, A1C WTH eA, BMP, HEPATIC #### [facility] [address] [place] [id number] [place] Glucose Poct Glucometerson 1 Commemt1 Glu2: Cleaned Meter Normal [facility] Comment on above: Result Comment: PERF ORMED BY: [facility] [address] [facility] [place] [address] PATHOLOGIST ELECTRICAL AUTOMATION ENGINEER ALVARO LEWIS M.D. Performed By: #### M G, LIPID, A1C WTH eA, BMP, HEPATIC #### [facility] [address] [place] [id number] [place] Glucose [Mass/volume] in Ser um or PlasmaOrdered By: Lalo Carter on 04-25-2024 Glucose [Mass/Vol] 121 mg/dL High 70-100 [facility] Comment on above: ADA recommended refe rence rangeRandom Glucose Reference Range is dependent on time and content of last meal. Glucose of more than 200 mg/dL in a nonstressed, ambulatory subject supports the diagnosis of Diabetes Mellitus. Order Comment: FASTI NG Y Result Comment: Ada om Glucose Reference Range is dependent on time and content of last meal. Glucose of more than 200 mg/dL in a nonstressed, ambulatory subject supports the diagnosis of Diabetes Mellitus. ADA recommended reference range Performed By: #### M G, LIPID, A1C WTH eA, BMP, HEPATIC #### [facility] [address] [place] [id number] [place] Glucose mean value [Mass/vol ume] in Blood Estimated from glycated hemoglobinOrdered By: Lalo Carter on 04-25-2024 Average glucose Estimated from glycated hemoglobin (Bld) [Mass/Vol] 171 mg/dL [facility] Hematocrit [Volume Fraction] of Blood by Automated countOrdered By: Lalo Carter on 04-25-2024 Hematocrit (Bld) [Volume fraction] 28.8 % Low 34.0-46.4 [facility] Comment on above: Performed By: #### M G, LIPID, A1C WTH eA, BMP, HEPATIC #### [facility] [address] [place] [address] [place] Hemoglobin A1c percentageOrd ered By: Lalo Carter on 04-25-2024 HbA1c (Bld) [Mass fraction] 7.6 % High 4.3-5.6 [facility] Comment on above: Increased risk for d iabetes: 5.7 - 6.4diabetes: >6.4glycemic control for adults with diabetes: <7.0 Result Comment: Incr eased risk for diabetes: 5.7 - 6.4 diabetes: >6.4 glycemic control for adults with diabetes: <7.0 Performed By: #### M G, LIPID, A1C WTH eA, BMP, HEPATIC #### [facility] [address] Hemoglobin [Mass/volume] in BloodOrdered By: Lalo Carter on 04-25-2024 Hemoglobin (Bld) [Mass/Vol] 9.4 g/dL Low 11.8-15.4 [facility] Comment on above: Performed By: #### M G, LIPID, A1C WTH eA, BMP, HEPATIC #### [facility] [address] Hepatic Panelon 04-25-2024 Albumin [Mass/Vol] 3.1 g/dL Low 3.5-5.7 [facility] Comment on above: Order Comment: FASTI NG Y Performed By: #### M G, LIPID, A1C WTH eA, BMP, HEPATIC #### [facility] [address] Bilirubin,Indirect 0.4 mg/dL Normal [facility] Comment on above: Order Comment: FASTI NG Y Performed By: #### M G, LIPID, A1C WTH eA, BMP, HEPATIC #### [facility] [address] Bilirubin.indirect [Mass/Vol] 0.10 mg/dL Normal 0.03-0.18 [facility] Comment on above: Order Comment: FASTI NG Y Performed By: #### M G, LIPID, A1C WTH eA, BMP, HEPATIC #### [facility] [address] [place] [id number] [place] INR in Platelet poor plasma by Coagulation assayOrdered By: Lalo Carter on 04-25-2024 INR Coag (PPP) [Relative time] 1.1 {INR} Normal [facility] Comment on above: INR Therapeutic Rang [...] LIPID, A1C WTH eA, BMP, HEPATIC #### [facility] [address] Leukocytes [#/volume] correc paige for nucleated erythrocytes in Blood by Automated counOrdered By: Lalo Vargaspierce on 04-25-2024 WBC corrected for nucl RBC Auto (Bld) [#/Vol] 8.9 10*3/uL 3.8-11.6 [facility] Leukocytes [#/volume] in Blo od by Automated countOrdered By: Lalo Emma on 04-25-2024 WBC (Bld) [#/Vol] 8.9 10*3/uL Normal 3.8-11.6 [facility] Comment on above: Performed By: #### M G, LIPID, A1C WTH eA, BMP, HEPATIC #### [facility] [address] Lipid Panelon 04-25-2024 LDL Cholesterol,Calculate d 36 mg/dL Normal 0-100 [facility] Comment on above: Order Comment: FASTI NG Y Result Comment: LDL ATP III CLASSIFICATION LDL less than 100 mg/dL Optimal LDL 100-129 mg/dL Near or above optimal LDL 130-159 mg/dL Borderline high LDL 160-189 mg/dL High LDL greater than 189 mg/dL Very high Performed By: #### M G, LIPID, A1C WTH eA, BMP, HEPATIC #### [address] Triglyceride w/Reflex 92 mg/dL Normal 0-149 [facility] Comment on above: Order [...] LIPID, A1C WTH eA, BMP, HEPATIC #### [address] VLDL CHOLESTEROL 18 mg/dL Normal [facility] Comment on above: Order Comment: FASTI NG Y Performed By: #### M G, LIPID, A1C WTH eA, BMP, HEPATIC #### [address] Lymphocytes [#/volume] in Bl ood by Automated countOrdered By: Lalo Carter on 04-25-2024 Lymphocytes (Bld) [#/Vol] 0.7 10*3/uL Low 1.00-4.8 [facility] Comment on above: Performed By: #### M G, LIPID, A1C WTH eA, BMP, HEPATIC #### [place] [address] [place] Lymphocytes/100 leukocytes i n Blood by Automated countOrdered By: Lalo Carter on 04-25-2024 Lymphocytes/100 WBC (Bld) 8.0 % Normal . [facility] Comment on above: Performed By: #### M G, LIPID, A1C WTH eA, BMP, HEPATIC #### [address] MCH [Entitic mass] by Automa paige countOrdered By: Lalo Carter on 04-25-2024 MCH (RBC) [Entitic mass] 29.7 pg Normal 24.7-34.3 [facility] Comment on above: Performed By: #### M G, LIPID, A1C WTH eA, BMP, HEPATIC #### [address] MCHC Auto (RBC) [Mass/Vol]Or dered By: Lalo Carter on 04-25-2024 MCHC (RBC) [Mass/Vol] 32.8 g/dL 32.0-35.0 [facility] MCV [Entitic volume] by Auto mated countOrdered By: Lalo Carter on 04-25-2024 MCV (RBC) [Entitic vol] 90.6 fL Normal 80-100 [facility] Comment on above: Performed By: #### M G, LIPID, A1C WTH eA, BMP, HEPATIC #### [address] Magnesium [Mass/volume] in S theresa or PlasmaOrdered By: Lalo Carter on 04-25-2024 Magnesium [Mass/Vol] 2.1 mg/dL Normal 1.9-2.7 [facility] Comment on above: Order Comment: FASTI NG Y Performed By: #### M G, LIPID, A1C WTH eA, BMP, HEPATIC #### [address] [place] lissy perf SPECT rest stron 04-25-2024 NM lissy perf SPECT rest str [facility] [place] [address] Nuclear Medicine Report Signed Patient: Jenni Quinones MR#: [id number] 0 : 1940 Acct:[id number] Age/Sex: 84 / F ADM Date: 04/25/24 Loc: Room: [address] [place] [address] Type: DIS IN Attending Dr: Javan Gruber [...] [place] 04/25/241952 Dictated By: Palmira Lowery MD, [facility] 04/25/24 1614 Signed By: 05/01/24 1218 Normal [facility] Neutrophils [#/volume] in Bl ood by Automated countOrdered By: Lalo Carter on 04-25-2024 Neutrophils (Bld) [#/Vol] 7.1 10*3/uL Normal 1.8-7.7 [facility] Comment on above: Performed By: #### M G, LIPID, A1C WTH eA, BMP, HEPATIC #### [facility] [address] [place] [address] No Panel InformationOrdered By: Javan Gruber on 04-25-2024 Bedside Glucose Comment Glu2: cleaned meter [facility] No Panel InformationOrdered By: Lalo Carter on 04-25-2024 Estimated GFR (CKD-EPI) 44.359 mL/Min [facility] Creatinine Clearance (Chem 32.54 [facility] Nucleated erythrocytes [Pres ence] in Blood by Automated countOrdered By: Lalo Carter on 04-25-2024 Nucleated RBC Auto Ql (Bld) 0.1 /100{WBC} 0-0.5 [facility] Partial Thromboplastin Timeo n 04-25-2024 aPTT Coag (Bld) [Time] 30.0 s Normal 25.1-36.5 [facility] Comment on above: Result Comment: A he matocrit value greater than 55% may lead to inaccurate results in coagulation testing. Patients having hematocrit values >55% require a special collection tube for coagulation studies. Please contact the laboratory at [phone] for redraw instructions. PERFORMED BY: [place] [address] PATHOLOGIST ELECTRICAL AUTOMATION ENGINEER ALVARO LEWIS M.D. Performed By: #### M G, LIPID, A1C WTH eA, BMP, HEPATIC #### [place] [address] [place] Platelet mean volume [Entiti c volume] in Blood by Automated countOrdered By: Lalo Carter on 04-25-2024 Platelet mean volume (Bld) [Entitic vol] 8.0 fL Normal 6.3-10.7 [facility] Comment on above: Performed By: #### M G, LIPID, A1C WTH eA, BMP, HEPATIC #### [place] [address] [place] Platelets [#/volume] in Bloo d by Automated countOrdered By: Lalo Carter on 04-25-2024 Platelets (Bld) [#/Vol] 273 10*3/uL Normal 150-450 [facility] Comment on above: Performed By: #### M G, LIPID, A1C WTH eA, BMP, HEPATIC #### [place] [address] [place] Potassium [Moles/volume] in Serum or PlasmaOrdered By: Lalo Carter on 04-25-2024 Potassium [Moles/Vol] 5.2 mmol/L High 3.5-5.1 [facility] Comment on above: Order Comment: FASTI NG Y Performed By: #### M G, LIPID, A1C WTH eA, BMP, HEPATIC #### [place] [id number] [place] Protein [Mass/volume] in Ser um or PlasmaOrdered By: Lalo Carter on 04-25-2024 Protein [Mass/Vol] 6.4 g/dL Normal 6.4-8.9 [facility] Comment on above: Order Comment: FASTI NG Y Performed By: #### M G, LIPID, A1C WTH eA, BMP, HEPATIC #### [facility] [address] Prothrombin time (PT)Ordered By: Lalo Carter on 04-25-2024 PT Coag (PPP) [Time] 12.9 s Normal 9.0-12.9 [facility] Comment on above: A hematocrit value g reater than 55% may lead to inaccurate results in coagulation testing. Patients having hematocrit values >55% require a special collection tube for coagulation studies. Please contact the laboratory at [phone] for redraw instructions. Result Comment: A he matocrit value greater than 55% may lead to inaccurate results in coagulation testing. Patients having hematocrit values >55% require a special collection tube for coagulation studies. Please contact the laboratory at [phone] for redraw instructions. Performed By: #### M G, LIPID, A1C WTH eA, BMP, HEPATIC #### [facility] [address] Serum globulin measurement b y calculation (mass/volume)Ordered By: Lalo Carter on 04-25-2024 Globulin (S) [Mass/Vol] 3.3 g/dL [facility] Comment on above: Order Comment: FASTI NG Y Performed By: #### M G, LIPID, A1C WTH eA, BMP, HEPATIC #### [facility] [address] Serum or plasma albumin/glob ulin mass ratioOrdered By: Lalo Carter on 04-25-2024 Albumin/Globulin [Mass ratio] 0.9 {ratio} [facility] Comment on above: Order Comment: FASTI NG Y Performed By: #### M G, LIPID, A1C WTH eA, BMP, HEPATIC #### [facility] [address] [place] [address] Serum or plasma anion gap de terminationOrdered By: Lalo Carter on 04-25-2024 Anion gap [Moles/Vol] 10.9 mmol/L Normal 6.0-15.0 [facility] Comment on above: Order Comment: BETSEY Blackburn Performed By: #### M G, LIPID, A1C WTH eA, BMP, HEPATIC #### [facility] [address] Serum or plasma high density lipoprotein (HDL) cholesterol measurementOrdered By: Lalo Carter on 04-25-2024 Cholesterol in HDL [Mass/Vol] 34 mg/dL Normal 23-92 [facility] Comment on above: HDL CHOL ATP-III CLA SSIFICATION Cardiovascular RiskHDL > or equal to 60 mg/dL LOWHDL < 40 mg/dL HIGH Order Comment: BETSEY Blackburn Result Comment: HDL CHOL ATP-III CLASSIFICATION Cardiovascular Risk HDL > or equal to 60 mg/dL LOW HDL < 40 mg/dL HIGH Performed By: #### M Marlena, LIPID, A1C WT eA, BMP, HEPATIC #### [facility] [address] Serum or plasma non-glucuron idated bilirubin measurement (mass/volume)Ordered By: Lalo Carter on 04-25-2024 Bilirubin.indirect [Mass/Vol] 0.4 mg/dL [facility] Serum or plasma total choles terol/high density lipoprotein (HDL) cholesterol mass ratOrdered By: Lalo Carter on 04-25-2024 Cholesterol.total/Cho lesterol in HDL [Mass ratio] 2.6 {ratio} Normal <5.0 [facility] Comment on above: Order Comment: BETSEY Blackburn Result Comment: PERF ORMED BY: [place] [address] PATHOLOGIST ELECTRICAL AUTOMATION ENGINEER ALVARO LEWIS M.D. Performed By: #### M G, LIPID, A1C WTH eA, BMP, HEPATIC #### [facility] [address] Sodium [Moles/volume] in Ser um or PlasmaOrdered By: Lalo Carter on 10-18-2024 Sodium [Moles/Vol] 138 mmol/L Normal 136-145 [facility] Comment on above: Order Comment: FASTI NG Y Performed By: #### M G, LIPID, A1C WTH eA, BMP, HEPATIC #### [facility] [address] Triglyceride [Mass/volume] i n Serum or PlasmaOrdered By: Lalo Carter on 04-25-2024 Triglyceride [Mass/Vol] 92 mg/dL 0-149 [facility] Comment on above: TRIG ATP III CLASSIF ICATIONTRIG less than 150 mg/dL NormalTRIG 150-199 mg/dL Borderline highTRIG 200-500 mg/dL High TRIG greater than 500 mg/dL Very highStandard traceable to the Center for Disease Conrtrol and Prevention (CDC) test method. Troponin I High Sensitivityo n 04-25-2024 Troponin I High Sensitivity 18.1 pg/mL High 0.0-15.0 [facility] Comment on above: Result Comment: PERF ORMED BY: [place] [address] PATHOLOGIST ELECTRICAL AUTOMATION ENGINEER ALVARO LEWIS M.D. Performed By: #### M G, LIPID, A1C WT eA, BMP, HEPATIC #### [facility] [address] Troponin I High Sensitivity 19.5 pg/mL High 0.0-15.0 [facility] Comment on above: Result Comment: PERF ORMED BY: [place] [address] PATHOLOGIST ELECTRICAL AUTOMATION ENGINEER ALVARO LEWIS M.D. Performed By: #### M G, LIPID, A1C WTH eA, BMP, HEPATIC #### [facility] [address] Troponin I.cardiac [Mass/vol ume] in Serum or Plasma by Detection limit <= 0.01 ng/Ordered By: Lalo Carter on 04-25-2024 Troponin I.cardiac DL <= 0.01 ng/mL [Mass/Vol] 18.1 pg/mL High 0.0-15.0 [facility] Urea nitrogen [Mass/volume] in Serum or PlasmaOrdered By: Lalo Carter on 04-25-2024 Urea nitrogen [Mass/Vol] 31 mg/dL High 01-30 [facility] Comment on above: Order Comment: BETSEY Blackburn Performed By: #### M G, LIPID, A1C WTH eA, BMP, HEPATIC #### [facility] [address] Office Visiton 01-07-2024 Follow-up visit [id number] Jenni Quinones 1940 F Date Provider Department Center 01/07/2024 JOSEFINA STEIN SYMONE [place] Family History Problem Relation Age of Onset Diabetes Father Heart failure Father Other Other Family Status - Relation Status Age at Father Other Level of Service:08555 [place] OFFICE/OUTPATIENT ESTABLISHED MOD MDM 30 MIN [facility] 37on 12-07-2023 37 Have blood drawn in [...] taller/more pillows than normal or in recliner. [facility] Office Visiton 12-07-2023 Follow-up visit [id number] Jenni Quinones 1940 F Date Provider Department Center 12/07/2023 FARZANEH PERSAUD Family History Problem Relation Age of Onset Diabetes Father Heart failure Father Other Other Family Status - Relation Status Age at Father Other Level of Service:39920 MT OFFICE/OUTPATIENT ESTABLISHED MOD MDM 30 MIN [facility] 36on 11-16-2023 36 Regarding echo perfo rmed on 10/23/2023: MD Mariaa Fernandes MA; Farzaneh Arndt NP [place], she sees you soon, echo is consistent with volume overload, I could consider intensification of diuretics before determining the need for FARA Normal [facility] XR COMPARISON OF OUTSIDE HIRAL MSon [...] only. Final result Normal [facility] FLUORO FOR SURGICAL PROCEDUR ESon 05-09-2023 FLUORO FOR SURGICAL PROCEDURES RADRPT Radiology exam is complete. No Radiologist dictation. Please follow up with ordering provider. Final result Normal [facility] SURGICALon 05-09-2023 SURGICAL [place] [facility] JENNI QUINONES [id number] Assoc. Page 1 of [address] [place] [address] PROC: 05/09/2023 [facility] RECV: 05/11/[address] RPTD: 05/16/2023 [place] [address] LOC: [facility] ACCT: [id number] SEX: F : 1940 AGE: 83 Y [...] negative. The CD138 demonstrates scattered plasma cells. [place] and lambda surface immunoglobulin light chain LALO is performed with adequate controls. The kappa and lambda stains demonstrate a polytypic plasma cell population. Overall, there is no evidence of an atypical infiltrate. Malignancy is not identified. *This test was developed and its performance characteristics determined by [facility]. It has not been cleared or approved by the U.S. Food and Drug Administration. Pursuant to the requirements of CLIA, this laboratory has established and verified the test's accuracy and precision. Additional information about this type of test is available upon request. [id number] [phone] INDY PLATT M.D., F.C.A.P. 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 Page 1 of 1\X0D0A\[address]\X0D0A\[place] [address]\X0D0A\ PROC: 05/09/2023\X0D0A\[facility] RECV: 05/11/2023\X0D0A\[address] RPTD: 05/16/2023\X0D0A\[place] [address]\X0D0A\ LOC: [facility]\X0D0A\ ACCT: [id number] SEX: F\X0D0A\ : 1940 AGE: 83 Y\X0D0A\X0D0A\ [...] negative. The CD138 demonstrates scattered plasma cells. [place] and\X0D0A\lambda surface immunoglobulin light chain LALO is performed with\X0D0A\adequate controls. The kappa and lambda stains demonstrate a polytypic\X0D0A\plasma cell population. Overall, there is no evidence of an atypical\X0D0A\infiltrate. Malignancy is not identified.\X0D0A\X0D0A\*This test was developed and its performance characteristics determined\X0D0A\by [facility]. It has not been cleared or\X0D0A\approved by the U.S. Food and Drug Administration. Pursuant to the\X0D0A\requirements of CLIA, this laboratory has established and verified the\X0D0A\test's accuracy and precision. Additional information about this type\X0D0A\of test is available upon request.\X0D0A\X0D0A\52203\X0D0A\20589\X0D0A\29195 x 3\X0D0A\05810\X0D0A\22823\X0D0A\X0D0A\X0D0A\X0D0A\ \X0D0A\ INDY PLATT M.D., F.C.A.P.\X0D0A\X0D0A\X0D0A\[facility] Printed on: 05/16/2023\X0D0A\[address]\X0D0A\[place], [place] [address]\X0D0A\Original print date: 05/16/2023 Performed By: #### 1 [id number] #### [facility] See Report DIGOXINon 12-06-2022 DIG <0.2 Critically low 0.9-2.0 [facility] Comment on above: Performed By: #### B LDCX2 #### [facility] [address] [place], [place] [address] Dr. Lisa Martinez PROF CHEM 8 (BAS METB)on Anion gap [Moles/Vol] 9.6 mmol/L Normal [facility] Comment on above: Performed By: #### T SHRFT4, BMP ####[facility] [address] [place] [address]Dr. Lisa Martinez Calcium [Mass/Vol] 9.0 mg/dL Normal 8.5-10.1 [facility] Comment on above: Performed By: #### T SHRFT4, BMP ####[facility] [address] [place], [place] [address]Dr. Lisa Martinez Chloride [Moles/Vol] 103 mmol/L Normal 98-107 [facility] Comment on above: Performed By: #### T SHRFT4, BMP ####[facility] [address] [place], [place] [address]Dr. Lisa Martinez CO2 [Moles/Vol] 33.4 mmol/L Critically high 21.0-32.0 [facility] Comment on above: Performed By: #### T ALFRED4, BMP ####[facility] [address] [place], [place] [address]Dr. Lisa Martinez Creatinine [Mass/Vol] 1.69 mg/dL Critically high 0.55-1.02 [facility] Comment on above: Performed By: #### T ALFRED4, BMP ####[facility] [address] [place], [place] [address]Dr. Lisa Martinez EGFR-AF SWISS 35 mL/min/1.73m2 Critically low >=60 [facility] Comment on above: Performed By: #### T ALFRED4, BMP ####[facility] [address] [place], [place] [address]Dr. Lisa Martinez EGFR-NON AF SWISS 29 mL/min/1.73m2 Critically low >=60 [facility] Comment on above: Performed By: #### T ALFRED4, BMP ####[facility] [address] [place], [place] [address]Dr. Lisa Martinez Glucose [Mass/Vol] 72 mg/dL Critically low 74-106 [facility] Comment on above: Performed By: #### T SUPRIYAFT4, BMP ####[facility] [address] [place], [place] [address]Dr. Lisa Martinez Potassium [Moles/Vol] 4.0 mmol/L Normal 3.5-5.1 [facility] Comment on above: Performed By: #### T ALFRED4, BMP ####[facility] [address] [place] [address]Dr. Lisa Martinez Sodium [Moles/Vol] 142 mmol/L Normal 136-145 [facility] Comment on above: Performed By: #### T ALFRED4, BMP ####[facility] [address] [place] [address]Dr. Lisa Martinez Urea nitrogen [Mass/Vol] 42.0 mg/dL Critically high 7.0-18.0 [facility] Comment on above: Performed By: #### T ALFRED4, BMP ####[facility] [address] [place] [address]Dr. Lisa Martinez Urea nitrogen/Creatinine [Mass ratio] 24.9 mg/mg Normal [facility] Comment on above: Performed By: #### T KELLEY, BMP ####[facility] [address] [place] [address]Dr. Lisa Martinez TSH W/ REFLEX TO FT4on 12-06 TSH 2.427 uIU/mL Normal 0.358-3.740 [facility] Comment on above: Performed By: #### T ALFRED4, BMP ####[facility] [address] [place] [address]Dr. Lisa Martinez BNPon 11-15-2022 Natriuretic peptide B (Bld) [Mass/Vol] 6134.0 pg/mL Critically high <=1,800.0 [facility] Comment on above: Performed By: #### B APPLICATION SUPPORT TECHNICIAN, CMP, MG ####[facility] [address] [place] [address]DrIngrid Martinez CBC AUTO DIFFon 11-15-2022 BASO # 0.0 103/ul Normal 0.0-0.1 [facility] Comment on above: Performed By: #### K U #### [facility] [address] [place] [address] [address] Yilan Martinez Basophils/100 WBC (Bld) 0.6 % Normal 0.2-2.0 [facility] Comment on above: Performed By: #### K U #### [facility] [address] [place] [address] Dr. Lisa Martinez EO # 0.2 103/ul Normal 0.0-0.7 [facility] Comment on above: Performed By: #### K U #### [facility] [address] [place] [address] Dr. Lisa Martinez Eosinophils/100 WBC (Bld) 2.9 % Normal 0.9-7.0 [facility] Comment on above: Performed By: #### K U #### [facility] [address] [place] [address] Dr. Lisa Martinez Erythrocyte distribution width (RBC) [Ratio] 14.9 % Normal 11.0-15.0 [facility] Comment on above: Performed By: #### K U #### [facility] [address] [place] [address] Dr. Lisa Martinez Hematocrit (Bld) [Volume fraction] 31.9 % Critically low 36.0-48.0 [facility] Comment on above: Performed By: #### K U #### [facility] [address] [place] [address] Dr. Lisa Martinez Hemoglobin (Bld) [Mass/Vol] 9.8 g/dL Critically low 12.0-16.0 [facility] Comment on above: Performed By: #### K U #### [facility] [address] [place] [address] Dr. Lisa Martinez IG # 0.02 10e3/ul Normal 0.00-0.03 [facility] Comment on above: Performed By: #### K U #### [facility] [address] [place] [address] Dr. Lisa Martinez IG % 0.3 % Normal 0.0-0.5 [facility] Comment on above: Performed By: #### K U #### [facility] [address] [place] [address] Dr. Lisa Martinez LYMPH # 0.7 103/ul Critically low 1.2-3.8 [facility] Comment on above: Performed By: #### K U #### [facility] [address] [place] [address] Dr. Lisa Martinez Lymphocytes/100 WBC (Bld) 10.9 % Critically low 20.5-60.0 [facility] Comment on above: Performed By: #### K U #### [facility] [address] [place] [address] Dr. Lisa Martinez MANUAL DIFF REQ NO Normal [facility] Comment on above: Performed By: #### K U #### [facility] [address] [place] [address] Dr. Lisa Martinez MCH (RBC) [Entitic mass] 29.1 pg Normal 26.7-34.0 [facility] Comment on above: Performed By: #### K U #### [facility] [address] [place] [address] Dr. Lisa Martinez MCHC (RBC) [Mass/Vol] 30.7 g/dL Normal 29.9-35.2 [facility] Comment on above: Performed By: #### K U #### [facility] [address] [place] [address] Dr. Lisa Martinez MCV (RBC) [Entitic vol] 94.7 fL Normal 81.0-99.0 [facility] Comment on above: Performed By: #### K U #### [facility] [address] [place] [address] Dr. Lisa Martinez MONO # 0.8 103/ul Normal 0.3-0.8 [facility] Comment on above: Performed By: #### K U #### [facility] [address] [place] [address] Dr. Lisa Martinez Monocytes/100 WBC (Bld) 12.2 % Critically high 1.7-12.0 [facility] Comment on above: Performed By: #### K U #### [facility] [address] [place] [address] Dr. Lisa Martinez NEUT # 4.6 103/ul Normal 1.4-6.5 [facility] Comment on above: Performed By: #### K U #### [facility] [address] [place] [address] Dr. Lisa Martinez Neutrophils/100 WBC (Bld) 73.1 % Normal 43.0-75.0 [facility] Comment on above: Performed By: #### K U #### [facility] [address] [place] [address] Dr. Lisa Martinez Platelet mean volume (Bld) [Entitic vol] 10.2 fL Normal 9.5-13.5 [facility] Comment on above: Performed By: #### K U #### [facility] [address] [place] [address] Dr. Lisa Martinez PLT 186 103/ul Normal 150-450 [facility] Comment on above: Performed By: #### K U #### [facility] [address] [place] [address] Dr. Lisa Martinez RBC 3.37 106/ul Critically low 4.20-5.40 [facility] Comment on above: Performed By: #### K U #### [facility] [address] [place] [address] Dr. Lisa Martinez WBC 6.3 103/ul Normal 4.0-11.0 [facility] Comment on above: Performed By: #### K U #### [facility] [address] [place] [address] Dr. Lisa Martinez CHLORIDE URINE RANDOMon 11-06 Chloride, Urine 126 mmol/L Normal Not Estab. [facility] Comment on above: Performed By: #### B LDCX2 #### [facility] [address] [place] [address] Dr. Lisa Martinez CULTURE URINEon 11-15-2022 CULTURE [...] F Trimethoprim/Sulfamethoxa zole <=20 S F Normal [facility] Comment on above: Performed By: #### U RCX #### [facility] [address] [place] [address] [address] Lisa Martinez DIGOXINon 11-15-2022 DIG 0.3 ng/mL Critically low 0.9-2.0 [facility] Comment on above: Performed By: #### B APPLICATION SUPPORT TECHNICIAN, BMP #### [facility] [address] [place] [address] Dr. Lisa Martinez MAGNESIUMon 11-15-2022 Magnesium [Mass/Vol] 2.2 mg/dL Normal 1.8-2.4 [facility] Comment on above: Performed By: #### B APPLICATION SUPPORT TECHNICIAN, CMP, MG ####[facility] [address] [place] [address]DrIngrid Martinez POINT OF CARE GLUCOSEon 11-06 Glucose [Mass/Vol] 164 mg/dL Critically high 74-106 [facility] Comment on above: Performed By: #### C BC #### [facility] [address] [place] [address] [address] Lisa Martinez PROF 14(COMP METB)on 023 Albumin [Mass/Vol] 3.3 g/dL Critically low 3.4-5.0 [facility] Comment on above: Performed By: #### B APPLICATION SUPPORT TECHNICIAN, CMP, MG ####[facility] [address] [place] [address]DrIngrid Martinez Albumin/Globulin [Mass ratio] 0.7 {ratio} Normal [facility] Comment on above: Performed By: #### B APPLICATION SUPPORT TECHNICIAN, CMP, MG ####[facility] [address] [place] [address]DrIngrid Martinez ALP [Catalytic activity/Vol] 75 U/L Normal 46-116 [facility] Comment on above: Performed By: #### B APPLICATION SUPPORT TECHNICIAN, CMP, MG ####[facility] [address] [place] [address]Dr. Lisa Martinez ALT [Catalytic activity/Vol] 14 U/L Normal 14-59 [facility] Comment on above: Performed By: #### B APPLICATION SUPPORT TECHNICIAN, CMP, MG ####[facility] [address] [place] [address]Dr. Lisa Martinez Anion gap [Moles/Vol] 11.1 mmol/L Normal Th e [facility] Comment on above: Performed By: #### B APPLICATION SUPPORT TECHNICIAN, CMP, MG ####[facility] [address] [place] [address]Dr. Lisa Martinez AST [Catalytic activity/Vol] 14 U/L Critically low 15-37 [facility] Comment on above: Performed By: #### B APPLICATION SUPPORT TECHNICIAN, CMP, MG ####[facility] [address] [place], [place] [address]Dr. Lisa Martinez Bilirubin [Mass/Vol] 0.9 mg/dL Normal 0.2-1.0 [facility] Comment on above: Performed By: #### B APPLICATION SUPPORT TECHNICIAN, CMP, MG ####[facility] [address] [place] [address]Dr. Lisa Martinez Calcium [Mass/Vol] 9.1 mg/dL Normal 8.5-10.1 [facility] Comment on above: Performed By: #### B APPLICATION SUPPORT TECHNICIAN, CMP, MG ####[facility] [address] [place] [address]Dr. Lisa Martinez Chloride [Moles/Vol] 100 mmol/L Normal 98-107 [facility] Comment on above: Performed By: #### B APPLICATION SUPPORT TECHNICIAN, CMP, MG ####[facility] [address] [place] [address]Dr. Lisa Martinez CO2 [Moles/Vol] 32.6 mmol/L Critically high 21.0-32.0 [facility] Comment on above: Performed By: #### B APPLICATION SUPPORT TECHNICIAN, CMP, MG ####[facility] [address] [place] [id number]. Lisa Martinez Creatinine [Mass/Vol] 2.65 mg/dL Critically high 0.55-1.02 [facility] Comment on above: Performed By: #### B APPLICATION SUPPORT TECHNICIAN, CMP, MG ####[facility] [address] [place] [id number]. Lisa Martinez EGFR-AF SWISS 21 mL/min/1.73m2 Critically low >=60 [facility] Comment on above: Performed By: #### B APPLICATION SUPPORT TECHNICIAN, CMP, MG ####[facility] [id number] [place] [address]Dr. Lisa Juan EGFR-NON AF SWISS 17 mL/min/1.73m2 Critically low >=60 [facility] Comment on above: Performed By: #### B APPLICATION SUPPORT TECHNICIAN, CMP, MG ####[facility] [address] [place] [address]Dr. Lisa Martinez Globulin (S) [Mass/Vol] 4.7 g/dL Normal [facility] Comment on above: Performed By: #### B APPLICATION SUPPORT TECHNICIAN, CMP, MG ####[facility] [id number] [place] [address]Dr. Lisa Martinez Glucose [Mass/Vol] 131 mg/dL Critically high 74-106 [facility] Comment on above: Performed By: #### B APPLICATION SUPPORT TECHNICIAN, CMP, MG ####[facility] [id number] [place] [address]Dr. Lisa Martinez Potassium [Moles/Vol] 3.7 mmol/L Normal 3.5-5.1 [facility] Comment on above: Performed By: #### B APPLICATION SUPPORT TECHNICIAN, CMP, MG ####[facility] [address] [place] [address]Dr. Lisa Martinez Protein [Mass/Vol] 8.0 g/dL Normal 6.4-8.2 [facility] Comment on above: Performed By: #### B APPLICATION SUPPORT TECHNICIAN, CMP, MG ####[facility] [address] [place] [address]Dr. Lisa Martinez Sodium [Moles/Vol] 140 mmol/L Normal 136-145 [facility] Comment on above: Performed By: #### B APPLICATION SUPPORT TECHNICIAN, CMP, MG ####[facility] [address] [place] [address]Dr. Lisa Martinez Urea nitrogen [Mass/Vol] 66.0 mg/dL Critically high 7.0-18.0 [facility] Comment on above: Performed By: #### B APPLICATION SUPPORT TECHNICIAN, CMP, MG ####[facility] [address] [place] [address]Dr. Lisa Martinez Urea nitrogen/Creatinine [Mass ratio] 24.9 mg/mg Normal [facility] Comment on above: Performed By: #### B APPLICATION SUPPORT TECHNICIAN, CMP, MG ####[facility] [id number] [place], [place] [address]Dr. Lisa Martinez UREA NITROGEN, RANDOM URon 0 11-15-2022 Urea Nitrogen, Urine 165 mg/dL Normal Not Estab. [facility] Comment on above: Performed By: #### U NR ####[facility] [id number] [place], [place] [address]Dr. Lisa Martinez BNPon 11-14-2022 Natriuretic peptide B (Bld) [Mass/Vol] 8525.0 pg/mL Critically high <=1,800.0 [facility] Comment on above: Performed By: #### B APPLICATION SUPPORT TECHNICIAN ####[facility] [address] [place], [place] [address]Dr. Lisa Martinez CBC AUTO DIFFon 11-14-2022 BASO # 0.0 103/ul Normal 0.0-0.1 [facility] Comment on above: Performed By: #### C VDTBH #### [facility] [address] [place] [address] Dr. Lisa Martinez Basophils/100 WBC (Bld) 0.5 % Normal 0.2-2.0 [facility] Comment on above: Performed By: #### C VDTBH #### [facility] [address] [place] [address] Dr. Lisa Martinez EO # 0.2 103/ul Normal 0.0-0.7 [facility] Comment on above: Performed By: #### C VDTBH #### [facility] [address] [place] [address] Dr. Lisa Martinez Eosinophils/100 WBC (Bld) 3.4 % Normal 0.9-7.0 [facility] Comment on above: Performed By: #### C VDTBH #### [facility] [address] [place] [address] Dr. Lisa Martinez Erythrocyte distribution width (RBC) [Ratio] 14.9 % Normal 11.0-15.0 [facility] Comment on above: Performed By: #### C VDTBH #### [facility] [address] [place] [address] Dr. Lisa Martinez Hematocrit (Bld) [Volume fraction] 31.3 % Critically low 36.0-48.0 [facility] Comment on above: Performed By: #### C VDTBH #### [facility] [address] [place] [address] Dr. Lisa Martinez Hemoglobin (Bld) [Mass/Vol] 9.4 g/dL Critically low 12.0-16.0 [facility] Comment on above: Performed By: #### C VDTBH #### [facility] [address] [place] [address] Dr. Lisa Martinez IG # 0.01 10e3/ul Normal 0.00-0.03 [facility] Comment on above: Performed By: #### C VDTBH #### [facility] [address] [place] [address] Dr. Lisa Martinez IG % 0.2 % Normal 0.0-0.5 [facility] Comment on above: Performed By: #### C VDTBH #### [facility] [address] [place] [address] Dr. Lisa Martinez LYMPH # 0.9 103/ul Critically low 1.2-3.8 [facility] Comment on above: Performed By: #### C VDTBH #### [facility] [address] [place] [address] Dr. Lisa Martinez Lymphocytes/100 WBC (Bld) 15.2 % Critically low 20.5-60.0 [facility] Comment on above: Performed By: #### C VDTBH #### [facility] [address] [place] [address] Dr. Lisa Martinez MANUAL DIFF REQ NO Normal [facility] Comment on above: Performed By: #### C VDTBH #### [facility] [address] [place] [address] Dr. Lisa Martinez MCH (RBC) [Entitic mass] 29.0 pg Normal 26.7-34.0 [facility] Comment on above: Performed By: #### C VDTBH #### [facility] [address] [place] [address] Dr. Lisa Martinez MCHC (RBC) [Mass/Vol] 30.0 g/dL Normal 29.9-35.2 [facility] Comment on above: Performed By: #### C VDTBH #### [facility] [address] [place] [address] Dr. Lisa Martinez MCV (RBC) [Entitic vol] 96.6 fL Normal 81.0-99.0 [facility] Comment on above: Performed By: #### C VDTBH #### [facility] [address] [place] [address] Dr. Lisa Martinez MONO # 0.6 103/ul Normal 0.3-0.8 [facility] Comment on above: Performed By: #### C VDTBH #### [facility] [address] [place] [address] Dr. Lisa Martinez Monocytes/100 WBC (Bld) 10.2 % Normal 1.7-12.0 [facility] Comment on above: Performed By: #### C VDTBH #### [facility] [address] [place] [address] Dr. Lisa Martinez NEUT # 4.0 103/ul Normal 1.4-6.5 [facility] Comment on above: Performed By: #### C VDTBH #### [facility] [address] [place] [address] Dr. Lisa Martinez Neutrophils/100 WBC (Bld) 70.5 % Normal 43.0-75.0 [facility] Comment on above: Performed By: #### C VDTBH #### [facility] [address] [place] [address] Dr. Lisa Martinez Platelet mean volume (Bld) [Entitic vol] 10.3 fL Normal 9.5-13.5 [facility] Comment on above: Performed By: #### C VDTBH #### [facility] [address] [place] [address] Dr. Lisa Martinez PLT 192 103/ul Normal 150-450 [facility] Comment on above: Performed By: #### C VDTBH #### [facility] [address] [place] [address] Dr. Lisa Martinez RBC 3.24 106/ul Critically low 4.20-5.40 [facility] Comment on above: Performed By: #### C VDTBH #### [facility] [address] [place] [address] Dr. Lisa Martinez WBC 5.7 103/ul Normal 4.0-11.0 [facility] Comment on above: Performed By: #### C VDTBH #### [facility] [address] [place] [address] Dr. Lisa Martinez D-DIMERon 11-14-2022 D-DIMER 0.82 mg/L FEU Critically high <=0.59 [facility] Comment on above: Performed By: #### B APPLICATION SUPPORT TECHNICIAN, BMP #### [facility] [address] [place] [address] Dr. Lisa Martinez D-DIMER COMMENTS SEE BELOW Normal [facility] Comment on above: Result Comment: Incr [...] and generalized hospitalization. Performed By: #### B APPLICATION SUPPORT TECHNICIAN, BMP #### [facility] [address] [address] [address] Lisa Martinez ECHO LIMITED STUDYon 023 ECHO LIMITED STUDY Patient: URSZULA QUINONES Exam Date: 11/14/2022 : 1940 Gender:F Ordering : DR ROBERTO ZIMMERMAN . Admission #: [id number] Family : Order #: [id number] CLICK HERE TO VIEW EXAM ECHOCARDIOGRAM REPORT [...] Marley M.D. on 11/14/2022 at 16:43 Normal [facility] MAGNESIUMon 11-14-2022 Magnesium [Mass/Vol] 2.3 mg/dL Normal 1.8-2.4 [facility] Comment on above: Performed By: #### U RCX #### [facility] [address] [address] [address] Lisa Martinez NM LUNG VENT_PERFon 11-15-19 [...] SADIE GARCIA Date: 2022-11-14 19:11 Normal [facility] OCC BLD IMMUNO SCREENon OCCULT BLOOD Negative Normal NEGATIVE [facility] Comment on above: Performed By: #### B LDCX2 #### [facility] [address] [address] [address] Lisa Martinez POINT OF CARE GLUCOSEon Glucose [Mass/Vol] 155 mg/dL Critically high 74-106 [facility] Comment on above: Performed By: #### P OCGLUC ####[facility] [id number] [place] [address]Dr. Lisa Martinez Glucose [Mass/Vol] 148 mg/dL Critically high 74-106 [facility] Comment on above: Performed By: #### B LDCX2 #### [facility] [address] [address] [address] Lisa Martinez Glucose [Mass/Vol] 76 mg/dL Normal 74-106 [facility] Comment on above: Performed By: #### B LDCX2 #### [facility] [address] [address] [address] Lisa Martinez POTASSIUM URINEon 11-14-2022 UR POTASSIUM 21.3 mmol/L Normal [facility] Comment on above: Performed By: #### K U #### [facility] [address] [place] [address] Dr. Lisa Martinez PROF 14(COMP METB)on 023 Albumin [Mass/Vol] 3.3 g/dL Critically low 3.4-5.0 [facility] Comment on above: Performed By: #### U RCX #### [facility] [address] [place] [address] Dr. Lisa Martinez Albumin/Globulin [Mass ratio] 0.7 {ratio} Normal [facility] Comment on above: Performed By: #### U RCX #### [facility] [address] [place] [address] Dr. Lisa Martinez ALP [Catalytic activity/Vol] 72 U/L Normal 46-116 [facility] Comment on above: Performed By: #### U RCX #### [facility] [address] [place] [address] Dr. Lisa Martinez ALT [Catalytic activity/Vol] 16 U/L Normal 14-59 [facility] Comment on above: Performed By: #### U RCX #### [facility] [address] [place] [address] Dr. Lisa Martinez Anion gap [Moles/Vol] 13.0 mmol/L Normal [facility] Comment on above: Performed By: #### U RCX #### [facility] [address] [place] [address] Dr. Lisa Martinez AST [Catalytic activity/Vol] 13 U/L Critically low 15-37 [facility] Comment on above: Performed By: #### U RCX #### [facility] [address] [address] [address] Lisa Martinez Bilirubin [Mass/Vol] 0.8 mg/dL Normal 0.2-1.0 [facility] Comment on above: Performed By: #### U RCX #### [facility] [address] [address] [address] Lisa Martinez Calcium [Mass/Vol] 9.0 mg/dL Normal 8.5-10.1 [facility] Comment on above: Performed By: #### U RCX #### [facility] [address] [place] [address] Dr. Lisa Martinez Chloride [Moles/Vol] 100 mmol/L Normal 98-107 [facility] Comment on above: Performed By: #### U RCX #### [facility] [address] [address] [address] Lisa Martinez CO2 [Moles/Vol] 30.0 mmol/L Normal 21.0-32.0 [facility] Comment on above: Performed By: #### U RCX #### [facility] [address] [place] [address] Dr. Lisa Martinez Creatinine [Mass/Vol] 2.79 mg/dL Critically high 0.55-1.02 [facility] Comment on above: Performed By: #### U RCX #### [facility] [address] [place] [address] Dr. Lisa Martinez EGFR-AF SWISS 20 mL/min/1.73m2 Critically low >=60 [facility] Comment on above: Performed By: #### U RCX #### [facility] [address] [address] [address] Lisa Martinez EGFR-NON AF SWISS 16 mL/min/1.73m2 Critically low >=60 [facility] Comment on above: Performed By: #### U RCX #### [facility] [address] [place] [address] Dr. Lisa Martinez Globulin (S) [Mass/Vol] 4.6 g/dL Normal [facility] Comment on above: Performed By: #### U RCX #### [facility] [address] [address] [address] Lisa Martinez Glucose [Mass/Vol] 153 mg/dL Critically high 74-106 [facility] Comment on above: Performed By: #### U RCX #### [facility] [address] [address] [address] Lisa Martinez Potassium [Moles/Vol] 4.0 mmol/L Normal 3.5-5.1 [facility] Comment on above: Performed By: #### U RCX #### [facility] [address] [place] [address] Dr. Lisa Martinez Protein [Mass/Vol] 7.9 g/dL Normal 6.4-8.2 [facility] Comment on above: Performed By: #### U RCX #### [facility] [address] [place] [address] Dr. Lisa Martinez Sodium [Moles/Vol] 139 mmol/L Normal 136-145 [facility] Comment on above: Performed By: #### U RCX #### [facility] [address] [place] [address] Dr. Lisa Martinez Urea nitrogen [Mass/Vol] 67.0 mg/dL Critically high 7.0-18.0 [facility] Comment on above: Performed By: #### U RCX #### [facility] [address] [place] [address] Dr. Lisa Martinez Urea nitrogen/Creatinine [Mass ratio] 24.0 mg/mg Normal [facility] Comment on above: Performed By: #### U RCX #### [facility] [address] [place] [address] Dr. Lisa Martinez SODIUM RANDOM URINEon 2022 Sodium (U) [Moles/Vol] 122 mmol/L Critically high 30-90 [facility] Comment on above: Performed By: #### B APPLICATION SUPPORT TECHNICIAN, BMP #### [facility] [address] [address] [address] Lisa Martinez T3, TOTAL (TRIIODOTHYRONINE) on 11-14-2022 T3, TOTAL 84 ng/dL Normal 71-180 [facility] Comment on above: Performed By: #### U RCX #### [facility] [address] [address] [address] Lisa Martinez BNPon 11-13-2022 Natriuretic peptide B (Bld) [Mass/Vol] 56791.0 pg/mL Critically high <=1,800.0 [facility] Comment on above: Performed By: #### B MP, HSTROPN, BNP ####[facility] [address] [place] [address]Dr. Lisa Martinez CARDIAC DONY 3-6on 3 CK [Catalytic activity/Vol] 60 U/L Normal 26-192 [facility] Comment on above: Performed By: #### C MREP ####[facility] [address] [place] [address]Dr. Lisa Martinez CK.MB [Mass/Vol] 0.96 ng/mL Normal <=3.60 [facility] Comment on above: Performed By: #### C MREP ####[facility] [address] [place] [address]Dr. Lisa Martinez HSTROP 16.3 pg/mL Normal 4.0-51.3 [facility] Comment on above: Result Comment: CUT- OFF POINTS HAVE BEEN ESTABLISHED BASED ON THE FOURTH UNIVERSAL DEFINITIONS OF MYOCARDIAL INFARCTION. THE UPPER REFERENCE LIMIT (URL) OF TROPONIN, DEFINED THE 99TH PERCENTILE OF cTnI DISTRIBUTION IN A REFERENCE POPULATION, HAS BEEN CONFIRMED THE DECISION THRESHOLD FOR MA DIAGNOSIS. Performed By: #### C MREP ####[facility] [address] [place] [address]Dr. Lisa Martinez CK [Catalytic activity/Vol] 60 U/L Normal 26-192 [facility] Comment on above: Performed By: #### C BC #### [facility] [address] [address] [address] Lisa Martinez CK.MB [Mass/Vol] 0.94 ng/mL Normal <=3.60 [facility] Comment on above: Performed By: #### C BC #### [facility] [address] [place] [address] Dr. Lisa Martinez HSTROP 15.1 pg/mL Normal 4.0-51.3 [facility] Comment on above: Result Comment: CUT- OFF POINTS HAVE BEEN ESTABLISHED BASED ON THE FOURTH UNIVERSAL DEFINITIONS OF MYOCARDIAL INFARCTION. THE UPPER REFERENCE LIMIT (URL) OF TROPONIN, DEFINED THE 99TH PERCENTILE OF cTnI DISTRIBUTION IN A REFERENCE POPULATION, HAS BEEN CONFIRMED THE DECISION THRESHOLD FOR [place] DIAGNOSIS. Performed By: #### C BC #### [facility] [address] [place] [address] Dr. Lisa Martinez CBC AUTO DIFFon 11-13-2022 BASO # 0.1 103/ul Normal 0.0-0.1 [facility] Comment on above: Performed By: #### C BC #### [facility] [address] [place] [address] Dr. Lisa Martinez Basophils/100 WBC (Bld) 0.6 % Normal 0.2-2.0 [facility] Comment on above: Performed By: #### C BC #### [facility] [address] [place] [address] Dr. Lisa Martinez EO # 0.2 103/ul Normal 0.0-0.7 [facility] Comment on above: Performed By: #### C BC #### [facility] [address] [place] [address] Dr. Lisa Martinez Eosinophils/100 WBC (Bld) 1.8 % Normal 0.9-7.0 [facility] Comment on above: Performed By: #### C BC #### [facility] [address] [place] [address] Dr. Lisa Martinez Erythrocyte distribution width (RBC) [Ratio] 15.0 % Normal 11.0-15.0 [facility] Comment on above: Performed By: #### C BC #### [facility] [address] [place] [address] Dr. Lisa Martinez Hematocrit (Bld) [Volume fraction] 32.9 % Critically low 36.0-48.0 [facility] Comment on above: Performed By: #### C BC #### [facility] [address] [place] [address] Dr. Lisa Martinez Hemoglobin (Bld) [Mass/Vol] 9.8 g/dL Critically low 12.0-16.0 [facility] Comment on above: Performed By: #### C BC #### [facility] [address] [place] [address] Dr. Lisa Martinez IG # 0.02 10e3/ul Normal 0.00-0.03 [facility] Comment on above: Performed By: #### C BC #### [facility] [address] [place] [address] Dr. Lisa Martinez IG % 0.2 % Normal 0.0-0.5 [facility] Comment on above: Performed By: #### C BC #### [facility] [address] [place] [address] Dr. Lisa Martinez LYMPH # 0.7 103/ul Critically low 1.2-3.8 [facility] Comment on above: Performed By: #### C BC #### [facility] [address] [place] [address] Dr. Lisa Martinez Lymphocytes/100 WBC (Bld) 7.8 % Critically low 20.5-60.0 [facility] Comment on above: Performed By: #### C BC #### [facility] [address] [place] [address] Dr. Lisa Martinez MANUAL DIFF REQ NO Normal [facility] Comment on above: Performed By: #### C BC #### [facility] [address] [place] [address] Dr. Lisa Martinez MCH (RBC) [Entitic mass] 29.4 pg Normal 26.7-34.0 [facility] Comment on above: Performed By: #### C BC #### [facility] [address] [place] [address] Dr. Lisa Martinez MCHC (RBC) [Mass/Vol] 29.8 g/dL Critically low 29.9-35.2 [facility] Comment on above: Performed By: #### C BC #### [facility] [address] [address] [address] Lisa Martinez MCV (RBC) [Entitic vol] 98.8 fL Normal 81.0-99.0 [facility] Comment on above: Performed By: #### C BC #### [facility] [address] [address] [address] Lisa Martinez MONO # 0.7 103/ul Normal 0.3-0.8 [facility] Comment on above: Performed By: #### C BC #### [facility] [address] [address] [address] Lisa Martinez Monocytes/100 WBC (Bld) 7.6 % Normal 1.7-12.0 [facility] Comment on above: Performed By: #### C BC #### [facility] [address] [address] [address] Lisa Martinez NEUT # 7.0 103/ul Critically high 1.4-6.5 [facility] Comment on above: Performed By: #### C BC #### [facility] [address] [address] [address] Lisa Martinez Neutrophils/100 WBC (Bld) 82.0 % Critically high 43.0-75.0 [facility] Comment on above: Performed By: #### C BC #### [facility] [address] [address] [address] Lisa Martinez Platelet mean volume (Bld) [Entitic vol] 10.6 fL Normal 9.5-13.5 [facility] Comment on above: Performed By: #### C BC #### [facility] [address] [address] [address] Lisa Martinez PLT 209 103/ul Normal 150-450 [facility] Comment on above: Performed By: #### C BC #### [facility] [address] [address] [address] Lisa Martinez RBC 3.33 106/ul Critically low 4.20-5.40 [facility] Comment on above: Performed By: #### C BC #### [facility] [address] [address] [address] Lisa Martinez WBC 8.6 103/ul Normal 4.0-11.0 [facility] Comment on above: Performed By: #### C BC #### [facility] [address] [address] [address] Lisa Martinez LACTATE/LACTIC ACIDon 2022 Lactate [Moles/Vol] 3.4 mmol/L Critically high 0.4-2.0 [facility] Comment on above: Performed By: #### L ACT ####[facility] [address] [address]Dr. Lisa Martinez MAGNESIUMon 11-13-2022 Magnesium [Mass/Vol] 2.6 mg/dL Critically high 1.8-2.4 [facility] Comment on above: Performed By: #### B APPLICATION SUPPORT TECHNICIAN, BMP #### [facility] [address] [place] [address] Dr. Lisa Martinez PROF CHEM 8 (BAS METB)on Anion gap [Moles/Vol] 15.7 mmol/L Normal [facility] Comment on above: Performed By: #### C BC #### [facility] [address] [place] [address] Dr. Lisa Martinez Calcium [Mass/Vol] 9.1 mg/dL Normal 8.5-10.1 [facility] Comment on above: Performed By: #### C BC #### [facility] [address] [place] [address] Dr. Lisa Martinez Chloride [Moles/Vol] 103 mmol/L Normal 98-107 [facility] Comment on above: Performed By: #### C BC #### [facility] [address] [place] [address] Dr. Lisa Martinez CO2 [Moles/Vol] 27.2 mmol/L Normal 21.0-32.0 [facility] Comment on above: Performed By: #### C BC #### [facility] [address] [place] [address] Dr. Lisa Martinez Creatinine [Mass/Vol] 2.91 mg/dL Critically high 0.55-1.02 [facility] Comment on above: Performed By: #### C BC #### [facility] [address] [address] [address] Lisa Martinez EGFR-AF SWISS 19 mL/min/1.73m2 Critically low >=60 [facility] Comment on above: Performed By: #### C BC #### [facility] [address] [address] [address] Lisa Martinez EGFR-NON AF SWISS 15 mL/min/1.73m2 Critically low >=60 [facility] Comment on above: Performed By: #### C BC #### [facility] [address] [address] [address] Lisa Martinez Glucose [Mass/Vol] 172 mg/dL Critically high 74-106 [facility] Comment on above: Performed By: #### C BC #### [facility] [address] [address] [address] Lisa Martinez Potassium [Moles/Vol] 4.9 mmol/L Normal 3.5-5.1 [facility] Comment on above: Performed By: #### C BC #### [facility] [address] [address] [address] Lisa Martinez Sodium [Moles/Vol] 141 mmol/L Normal 136-145 [facility] Comment on above: Performed By: #### C BC #### [facility] [address] [address] [address] Lisa Martinez Urea nitrogen [Mass/Vol] 64.0 mg/dL Critically high 7.0-18.0 [facility] Comment on above: Performed By: #### C BC #### [facility] [address] [address] [address] Lisa Martinez Urea nitrogen/Creatinine [Mass ratio] 22.0 mg/mg Normal [facility] Comment on above: Performed By: #### C BC #### [facility] [address] [address] [address] Lisa Martinez Anion gap [Moles/Vol] 17.4 mmol/L Normal [facility] Comment on above: Performed By: #### B MP, HSTROPN, BNP ####[facility] [address] [address]Dr. Lisa Martinez Calcium [Mass/Vol] 9.1 mg/dL Normal 8.5-10.1 [facility] Comment on above: Performed By: #### B MP, HSTROPN, BNP ####[facility] [address] [address]Dr. Lisa Martinez Chloride [Moles/Vol] 104 mmol/L Normal 98-107 [facility] Comment on above: Performed By: #### B MP, HSTROPN, BNP ####[facility] [address] [place], [place] [address]Dr. Lisa Martinez CO2 [Moles/Vol] 26.9 mmol/L Normal 21.0-32.0 [facility] Comment on above: Performed By: #### B MP, HSTROPN, BNP ####[facility] [address] [place], [place] [address]Dr. Lisa Martinez Creatinine [Mass/Vol] 3.12 mg/dL Critically high 0.55-1.02 [facility] Comment on above: Performed By: #### B MP, HSTROPN, BNP ####[facility] [address] [address]Dr. Lisa Martinez EGFR-AF SWISS 17 mL/min/1.73m2 Critically low >=60 [facility] Comment on above: Performed By: #### B MP, HSTROPN, BNP ####[facility] [address] [address]Dr. Lisa Martinez EGFR-NON AF SWISS 14 mL/min/1.73m2 Critically low >=60 [facility] Comment on above: Performed By: #### B MP, HSTROPN, BNP ####[facility] [address] [address]Dr. Lisa Martinez Glucose [Mass/Vol] 131 mg/dL Critically high 74-106 [facility] Comment on above: Performed By: #### B MP, HSTROPN, BNP ####[facility] [address] [address]Dr. Lisa Martinez Potassium [Moles/Vol] 5.3 mmol/L Critically high 3.5-5.1 [facility] Comment on above: Performed By: #### B MP, HSTROPN, BNP ####[facility] [address] [address]Dr. Lisa Martinez Sodium [Moles/Vol] 143 mmol/L Normal 136-145 [facility] Comment on above: Performed By: #### B MP, HSTROPN, BNP ####[facility] [address] [address]Dr. Lisa Martinez Urea nitrogen [Mass/Vol] 59.0 mg/dL Critically high 7.0-18.0 [facility] Comment on above: Performed By: #### B MP, HSTROPN, BNP ####[facility] [address] [address]Dr. Lisa Martinez Urea nitrogen/Creatinine [Mass ratio] 18.9 mg/mg Normal [facility] Comment on above: Performed By: #### B MP, HSTROPN, BNP ####[facility] [address] [address]Dr. Lisa Martinez SYMPTOMATIC COVID-19 ANTIGEN on 11-13-2022 EUA Statement SEE BELOW Normal [facility] Comment on above: Result Comment: [...] sooner. Performed By: #### C VDTBH #### [facility] [address] [address] [address] Lisa Martinez SARS-CoV-2 (COVID-19) RNA RACIEL+probe Ql (Unsp spec) Negative Normal NEGATIVE [facility] Comment on above: Performed By: #### C VDTBH #### [facility] [address] [address] [address] Lisa Martinez T4on 11-13-2022 T4 [Mass/Vol] 6.70 ug/dL Normal 4.80-13.90 [facility] Comment on above: Performed By: #### B APPLICATION SUPPORT TECHNICIAN, BMP #### [facility] [address] [place] [address] Dr. Lisa Martinez TROPONIN, HIGH SENSITIVITYon 11-13-2022 HSTROP 17.9 pg/mL Normal 4.0-51.3 [facility] Comment on above: Result Comment: CUT- OFF POINTS HAVE BEEN ESTABLISHED BASED ON THE FOURTH UNIVERSAL DEFINITIONS OF MYOCARDIAL INFARCTION. THE UPPER REFERENCE LIMIT (URL) OF TROPONIN, DEFINED THE 99TH PERCENTILE OF cTnI DISTRIBUTION IN A REFERENCE POPULATION, HAS BEEN CONFIRMED THE DECISION THRESHOLD FOR MA DIAGNOSIS. Performed By: #### B MP, HSTROPN, BNP ####[facility] [address] [address]Dr. Lisa Martinez TSHon 11-13-2022 TSH 5.233 uIU/mL Critically high 0.358-3.740 [facility] Comment on above: Performed By: #### B APPLICATION SUPPORT TECHNICIAN, BMP #### [facility] [address] [address] [address] Lisa Martinez UA RANDOM W/MICROSCOPICon BACTERIA SMALL Abnormal NONE SEEN [facility] Comment on above: Performed By: #### K U #### [facility] [address] [address] [address] Lisa Martinez Bilirubin Ql (U) Negative Normal NEGATIVE [facility] Comment on above: Performed By: #### K U #### [facility] [address] [place] [address] Dr. Lisa Martinez CAST SEEN Abnormal NONE SEEN [facility] Comment on above: Performed By: #### K U #### [facility] [address] [place] [address] Dr. Lisa Martinez Clarity (U) CLEAR Normal CLEAR [facility] Comment on above: Performed By: #### K U #### [facility] [address] [place] [address] Dr. Lisa Martinez Color (U) LT. YELLOW Normal YELLOW [facility] Comment on above: Performed By: #### K U #### [facility] [address] [place] [address] Dr. Lisa Martinez Crystals LM Nom (Urine sed) NONE SEEN Normal NONE SEEN [facility] Comment on above: Performed By: #### K U #### [facility] [address] [place] [address] Dr. Lisa Martinez Epithelial cells LM Ql (Urine sed) FEW Abnormal NONE SEEN /RARE [facility] Comment on above: Performed By: #### K U #### [facility] [address] [place] [address] Dr. Lisa Martinez Glucose Ql (U) Negative Normal NEGATIVE [facility] Comment on above: Performed By: #### K U #### [facility] [address] [place] [address] Dr. Lisa Martinez Hemoglobin Ql (U) Negative Normal NEGATIVE [facility] Comment on above: Performed By: #### K U #### [facility] [address] [place] [address] Dr. Lisa Martinez HYALINE CAST FEW Normal [facility] Comment on above: Performed By: #### K U #### [facility] [address] [place] [address] Dr. Lisa Martinez Ketones Ql (U) Negative Normal NEGATIVE [facility] Comment on above: Performed By: #### K U #### [facility] [address] [place] [address] Dr. Lisa Martinez LEUKOCYTES Negative Normal NEGATIVE [facility] Comment on above: Performed By: #### K U #### [facility] [address] [place] [address] Dr. Lisa Martinez MUCOUS NONE SEEN Normal NONE SEEN [facility] Comment on above: Performed By: #### K U #### [facility] [address] [place] [address] Dr. Lisa Martinez Nitrite Ql (U) Negative Normal NEGATIVE [facility] Comment on above: Performed By: #### K U #### [facility] [address] [place] [address] Dr. Lisa Martinez pH (U) 5.5 [pH] Normal 5-9 [facility] Comment on above: Performed By: #### K U #### [facility] [address] [place] [address] Dr. Lisa Martinez RBC NONE SEEN Abnormal 0-2 [facility] Comment on above: Performed By: #### K U #### [facility] [address] [place] [address] Dr. Lisa Martinez SPEC GRAVITY 1.010 Normal 1.005-<=1.0 25 [facility] Comment on above: Performed By: #### K U #### [facility] [address] [place] [address] Dr. Lisa Martinez UA PROTEIN Negative Normal NEGATIVE/ TRACE [facility] Comment on above: Performed By: #### K U #### [facility] [address] [place] [address] Dr. Lisa Martinez Urobilinogen Qn (U) 0.2 {Mike'U}/dL Normal 0.2 - 1. 0 [facility] Comment on above: Performed By: #### K U #### [facility] [address] [place] [address] Dr. Lisa Martinez WBC NONE SEEN Normal NONE SEEN [facility] Comment on above: Performed By: #### K U #### [facility] [address] [place] [address] Dr. Lisa Martinez US KIDNEYS BLADDERon 023 [...] by: Gela ARANDA Date: 2022-11-13 16:01 Normal [facility] XR CHEST 1 Von 11-13-2022 [...] by: MEENA WOOTEN Date: 2022-11-13 12:20 Normal [facility] PROF CHEM 8 (BAS METB)on Anion gap [Moles/Vol] 13.5 mmol/L Normal [facility] Comment on above: Performed By: #### B MP ####[facility] [address] [place], [place] [address]DyIngrid Martinez Calcium [Mass/Vol] 9.2 mg/dL Normal 8.5-10.1 [facility] Comment on above: Performed By: #### B MP ####[facility] [address] [address]Dr. Lisa Martinez Chloride [Moles/Vol] 108 mmol/L Critically high 98-107 [facility] Comment on above: Performed By: #### B MP ####[facility] [address] [address]Dr. Lisa Martinez CO2 [Moles/Vol] 25.6 mmol/L Normal 21.0-32.0 [facility] Comment on above: Performed By: #### B MP ####[facility] [address] [address]Dr. Lias Martinez Creatinine [Mass/Vol] 1.53 mg/dL Critically high 0.55-1.02 [facility] Comment on above: Performed By: #### B MP ####[facility] [address] [place], [place] [address]Dr. Lisa Martinez EGFR-AF SWISS 39 mL/min/1.73m2 Critically low >=60 [facility] Comment on above: Performed By: #### B MP ####[facility] [address] [place], [place] [address]Dr. Lisa Martinez EGFR-NON AF SWISS 32 mL/min/1.73m2 Critically low >=60 [facility] Comment on above: Performed By: #### B MP ####[facility] [address] [place], [place] [address]Dr. Lisa Juan Glucose [Mass/Vol] 69 mg/dL Critically low 74-106 [facility] Comment on above: Performed By: #### B MP ####[facility] [address] [place], [place] [address]Dr. Lisa Martinez Potassium [Moles/Vol] 5.1 mmol/L Normal 3.5-5.1 [facility] Comment on above: Performed By: #### B MP ####[facility] [address] [place], [place] [address]Dr. Lisa Martinez Sodium [Moles/Vol] 142 mmol/L Normal 136-145 [facility] Comment on above: Performed By: #### B MP ####[facility] [address] [id number]. Lisa Martinez Urea nitrogen [Mass/Vol] 32.0 mg/dL Critically high 7.0-18.0 [facility] Comment on above: Performed By: #### B MP ####[facility] [address] [address]Dr. Lisa Martinez Urea nitrogen/Creatinine [Mass ratio] 20.9 mg/mg Normal [facility] Comment on above: Performed By: #### B MP ####[facility] [address] [id number]. Lisa Martinez BNPon 10-08-2022 Natriuretic peptide B (Bld) [Mass/Vol] 3489.0 pg/mL Critically high <=1,800.0 [facility] Comment on above: Performed By: #### B APPLICATION SUPPORT TECHNICIAN, BMP #### [facility] [address] [place] [address] Dr. Lisa Martinez CBC AUTO DIFFon 10-08-2022 BASO # 0.0 103/ul Normal 0.0-0.1 [facility] Comment on above: Performed By: #### B APPLICATION SUPPORT TECHNICIAN, BMP #### [facility] [address] [place] [address] Dr. Lisa Martinez Basophils/100 WBC (Bld) 0.6 % Normal 0.2-2.0 [facility] Comment on above: Performed By: #### B APPLICATION SUPPORT TECHNICIAN, BMP #### [facility] [address] [place] [address] Dr. Lisa Martinez EO # 0.2 103/ul Normal 0.0-0.7 [facility] Comment on above: Performed By: #### B APPLICATION SUPPORT TECHNICIAN, BMP #### [facility] [address] [place] [address] Dr. Lisa Martinez Eosinophils/100 WBC (Bld) 3.5 % Normal 0.9-7.0 [facility] Comment on above: Performed By: #### B APPLICATION SUPPORT TECHNICIAN, BMP #### [facility] [address] [place] [address] Dr. Lisa Martinez Erythrocyte distribution width (RBC) [Ratio] 15.5 % Critically high 11.0-15.0 [facility] Comment on above: Performed By: #### B APPLICATION SUPPORT TECHNICIAN, BMP #### [facility] [address] [place] [address] Dr. Lisa Martinez Hematocrit (Bld) [Volume fraction] 31.8 % Critically low 36.0-48.0 [facility] Comment on above: Performed By: #### B APPLICATION SUPPORT TECHNICIAN, BMP #### [facility] [address] [place] [address] Dr. Lisa Martinez Hemoglobin (Bld) [Mass/Vol] 9.8 g/dL Critically low 12.0-16.0 [facility] Comment on above: Performed By: #### B APPLICATION SUPPORT TECHNICIAN, BMP #### [facility] [address] [place] [address] Dr. Lisa Martinez IG # 0.02 10e3/ul Normal 0.00-0.03 [facility] Comment on above: Performed By: #### B APPLICATION SUPPORT TECHNICIAN, BMP #### [facility] [address] [place] [address] Dr. Lisa Martinez IG % 0.3 % Normal 0.0-0.5 [facility] Comment on above: Performed By: #### B APPLICATION SUPPORT TECHNICIAN, BMP #### [facility] [address] [place] [address] Dr. Lisa Martinez LYMPH # 0.9 103/ul Critically low 1.2-3.8 [facility] Comment on above: Performed By: #### B APPLICATION SUPPORT TECHNICIAN, BMP #### [facility] [address] [place] [address] Dr. Lisa Martinez Lymphocytes/100 WBC (Bld) 14.0 % Critically low 20.5-60.0 [facility] Comment on above: Performed By: #### B APPLICATION SUPPORT TECHNICIAN, BMP #### [facility] [address] [place] [address] Dr. Lisa Martinez MANUAL DIFF REQ NO Normal [facility] Comment on above: Performed By: #### B APPLICATION SUPPORT TECHNICIAN, BMP #### [facility] [address] [place] [address] Dr. Lisa Martinez MCH (RBC) [Entitic mass] 29.9 pg Normal 26.7-34.0 [facility] Comment on above: Performed By: #### B APPLICATION SUPPORT TECHNICIAN, BMP #### [facility] [address] [place] [address] Dr. Lisa Martinez MCHC (RBC) [Mass/Vol] 30.8 g/dL Normal 29.9-35.2 [facility] Comment on above: Performed By: #### B APPLICATION SUPPORT TECHNICIAN, BMP #### [facility] [address] [place] [address] Dr. Lisa Martinez MCV (RBC) [Entitic vol] 97.0 fL Normal 81.0-99.0 [facility] Comment on above: Performed By: #### B APPLICATION SUPPORT TECHNICIAN, BMP #### [facility] [address] [place] [address] Dr. Lisa Martinez MONO # 0.8 103/ul Normal 0.3-0.8 [facility] Comment on above: Performed By: #### B APPLICATION SUPPORT TECHNICIAN, BMP #### [facility] [address] [place] [address] Dr. Lisa Martinez Monocytes/100 WBC (Bld) 11.9 % Normal 1.7-12.0 [facility] Comment on above: Performed By: #### B APPLICATION SUPPORT TECHNICIAN, BMP #### [facility] [address] [place] [address] Dr. Lisa Martinez NEUT # 4.4 103/ul Normal 1.4-6.5 [facility] Comment on above: Performed By: #### B APPLICATION SUPPORT TECHNICIAN, BMP #### [facility] [address] [place] [address] Dr. Lisa Martinez Neutrophils/100 WBC (Bld) 69.7 % Normal 43.0-75.0 [facility] Comment on above: Performed By: #### B APPLICATION SUPPORT TECHNICIAN, BMP #### [facility] [address] [place] [address] Dr. Lisa Martinez Platelet mean volume (Bld) [Entitic vol] 10.3 fL Normal 9.5-13.5 [facility] Comment on above: Performed By: #### B APPLICATION SUPPORT TECHNICIAN, BMP #### [facility] [address] [address] [address] Lisa Martinez PLT 223 103/ul Normal 150-450 [facility] Comment on above: Performed By: #### B APPLICATION SUPPORT TECHNICIAN, BMP #### [facility] [address] [address] [address] Lisa Martinez RBC 3.28 106/ul Critically low 4.20-5.40 [facility] Comment on above: Performed By: #### B APPLICATION SUPPORT TECHNICIAN, BMP #### [facility] [address] [address] [address] Lisa Martinez WBC 6.3 103/ul Normal 4.0-11.0 [facility] Comment on above: Performed By: #### B APPLICATION SUPPORT TECHNICIAN, BMP #### [facility] [address] [place] [address] Dr. Lisa Martinez DIGOXINon 10-08-2022 DIG 1.6 ng/mL Normal 0.9-2.0 [facility] Comment on above: Performed By: #### D IG ####[facility] [address] [address]Dr. Lisa Martinez POINT OF CARE GLUCOSEon 04-0 Glucose [Mass/Vol] 226 mg/dL Critically high 74-106 [facility] Comment on above: Performed By: #### P OCGLUC ####[facility] [address] [address]Dr. Lisa Martinez Glucose [Mass/Vol] 107 mg/dL Critically high 74-106 [facility] Comment on above: Performed By: #### B LDCX2 #### [facility] [address] [place] [address] Dr. Lisa Martinez PROF CHEM 8 (BAS METB)on Anion gap [Moles/Vol] 11.7 mmol/L Normal [facility] Comment on above: Performed By: #### B APPLICATION SUPPORT TECHNICIAN, BMP #### [facility] [address] [place] [address] Dr. Lisa Martinez Calcium [Mass/Vol] 9.2 mg/dL Normal 8.5-10.1 [facility] Comment on above: Performed By: #### B APPLICATION SUPPORT TECHNICIAN, BMP #### [facility] [address] [address] [address] Lisa Martinez Chloride [Moles/Vol] 102 mmol/L Normal 98-107 [facility] Comment on above: Performed By: #### B APPLICATION SUPPORT TECHNICIAN, BMP #### [facility] [address] [address] [address] Lisa Martinez CO2 [Moles/Vol] 29.3 mmol/L Normal 21.0-32.0 [facility] Comment on above: Performed By: #### B APPLICATION SUPPORT TECHNICIAN, BMP #### [facility] [address] [address] [address] Lisa Martinez Creatinine [Mass/Vol] 1.27 mg/dL Critically high 0.55-1.02 [facility] Comment on above: Performed By: #### B APPLICATION SUPPORT TECHNICIAN, BMP #### [facility] [address] [place] [address] Dr. Lisa Martinez EGFR-AF SWISS 49 mL/min/1.73m2 Critically low >=60 [facility] Comment on above: Performed By: #### B APPLICATION SUPPORT TECHNICIAN, BMP #### [facility] [address] [place] [address] Dr. Lisa Martinez EGFR-NON AF SWISS 40 mL/min/1.73m2 Critically low >=60 [facility] Comment on above: Performed By: #### B APPLICATION SUPPORT TECHNICIAN, BMP #### [facility] [address] [place] [address] Dr. Lisa Martinez Glucose [Mass/Vol] 98 mg/dL Normal 74-106 [facility] Comment on above: Performed By: #### B APPLICATION SUPPORT TECHNICIAN, BMP #### [facility] [address] [place] [address] Dr. Lisa Martinez Potassium [Moles/Vol] 4.0 mmol/L Normal 3.5-5.1 [facility] Comment on above: Performed By: #### B APPLICATION SUPPORT TECHNICIAN, BMP #### [facility] [address] [place] [address] Dr. Lisa Martinez Sodium [Moles/Vol] 139 mmol/L Normal 136-145 [facility] Comment on above: Performed By: #### B APPLICATION SUPPORT TECHNICIAN, BMP #### [facility] [address] [place] [address] Dr. Lisa Martinez Urea nitrogen [Mass/Vol] 26.0 mg/dL Critically high 7.0-18.0 [facility] Comment on above: Performed By: #### B APPLICATION SUPPORT TECHNICIAN, BMP #### [facility] [address] [place] [address] Dr. Lisa Martinez Urea nitrogen/Creatinine [Mass ratio] 20.5 mg/mg Normal [facility] Comment on above: Performed By: #### B APPLICATION SUPPORT TECHNICIAN, BMP #### [facility] [address] [place] [address] Dr. Lisa Martinez BNPon 10-07-2022 Natriuretic peptide B (Bld) [Mass/Vol] 6039.0 pg/mL Critically high <=1,800.0 [facility] Comment on above: Performed By: #### B APPLICATION SUPPORT TECHNICIAN ####[facility] [id number] [place] [address]Dr. Lisa Martinez CBC AUTO DIFFon 10-07-2022 BASO # 0.1 103/ul Normal 0.0-0.1 [facility] Comment on above: Performed By: #### K U #### [facility] [address] [place] [address] Dr. Lisa Martinez Basophils/100 WBC (Bld) 0.7 % Normal 0.2-2.0 [facility] Comment on above: Performed By: #### K U #### [facility] [address] [place] [address] Dr. Lisa Martinez EO # 0.3 103/ul Normal 0.0-0.7 [facility] Comment on above: Performed By: #### K U #### [facility] [address] [place] [address] Dr. Lisa Martinez Eosinophils/100 WBC (Bld) 4.0 % Normal 0.9-7.0 [facility] Comment on above: Performed By: #### K U #### [facility] [address] [place] [address] Dr. Lisa Martinez Erythrocyte distribution width (RBC) [Ratio] 15.6 % Critically high 11.0-15.0 [facility] Comment on above: Performed By: #### K U #### [facility] [address] [place] [address] Dr. Lisa Martinez Hematocrit (Bld) [Volume fraction] 34.0 % Critically low 36.0-48.0 [facility] Comment on above: Performed By: #### K U #### [facility] [address] [place] [address] Dr. Lisa Martinez Hemoglobin (Bld) [Mass/Vol] 10.4 g/dL Critically low 12.0-16.0 [facility] Comment on above: Performed By: #### K U #### [facility] [address] [place] [address] Dr. Lisa Martinez IG # 0.02 10e3/ul Normal 0.00-0.03 [facility] Comment on above: Performed By: #### K U #### [facility] [address] [place] [address] Dr. Lisa Martinez IG % 0.3 % Normal 0.0-0.5 [facility] Comment on above: Performed By: #### K U #### [facility] [address] [place] [address] Dr. Lisa Martinez LYMPH # 1.0 103/ul Critically low 1.2-3.8 [facility] Comment on above: Performed By: #### K U #### [facility] [address] [place] [address] Dr. Lisa Martinez Lymphocytes/100 WBC (Bld) 14.9 % Critically low 20.5-60.0 [facility] Comment on above: Performed By: #### K U #### [facility] [address] [place] [address] Dr. Lisa Martinez MANUAL DIFF REQ NO Normal [facility] Comment on above: Performed By: #### K U #### [facility] [address] [place] [address] Dr. Lisa Martinez MCH (RBC) [Entitic mass] 29.8 pg Normal 26.7-34.0 [facility] Comment on above: Performed By: #### K U #### [facility] [address] [place] [address] Dr. Lisa Martinez MCHC (RBC) [Mass/Vol] 30.6 g/dL Normal 29.9-35.2 [facility] Comment on above: Performed By: #### K U #### [facility] [address] [place] [address] Dr. Lisa Martinez MCV (RBC) [Entitic vol] 97.4 fL Normal 81.0-99.0 [facility] Comment on above: Performed By: #### K U #### [facility] [address] [place] [address] Dr. Lisa Martinez MONO # 0.6 103/ul Normal 0.3-0.8 [facility] Comment on above: Performed By: #### K U #### [facility] [address] [place] [address] Dr. Lisa Martinez Monocytes/100 WBC (Bld) 8.8 % Normal 1.7-12.0 [facility] Comment on above: Performed By: #### K U #### [facility] [address] [place] [address] Dr. Lisa Martinez NEUT # 4.9 103/ul Normal 1.4-6.5 [facility] Comment on above: Performed By: #### K U #### [facility] [address] [place] [address] Dr. Lisa Martinez Neutrophils/100 WBC (Bld) 71.3 % Normal 43.0-75.0 [facility] Comment on above: Performed By: #### K U #### [facility] [address] [place] [address] Dr. Lisa Martinez Platelet mean volume (Bld) [Entitic vol] 10.5 fL Normal 9.5-13.5 [facility] Comment on above: Performed By: #### K U #### [facility] [address] [place] [address] Dr. Lisa Martinez PLT 251 103/ul Normal 150-450 [facility] Comment on above: Performed By: #### K U #### [facility] [address] [address] [address] Lisa Martinez RBC 3.49 106/ul Critically low 4.20-5.40 [facility] Comment on above: Performed By: #### K U #### [facility] [address] [address] [address] Lisa Martinez WBC 6.8 103/ul Normal 4.0-11.0 [facility] Comment on above: Performed By: #### K U #### [facility] [address] [place] [address] Dr. Lisa Martinez DIGOXINon 10-07-2022 DIG 1.7 ng/mL Normal 0.9-2.0 [facility] Comment on above: Performed By: #### U RCX #### [facility] [address] [place] [address] Dr. Lisa Martinez POINT OF CARE GLUCOSEon Glucose [Mass/Vol] 185 mg/dL Critically high 74-106 [facility] Comment on above: Performed By: #### B APPLICATION SUPPORT TECHNICIAN, BMP #### [facility] [address] [place] [address] Dr. Lisa Martinez Glucose [Mass/Vol] 120 mg/dL Critically high -106 [facility] Comment on above: Performed By: #### C VDTBH #### [facility] [address] [place] [address] Dr. Lisa Martinez Glucose [Mass/Vol] 218 mg/dL Critically high -106 [facility] Comment on above: Performed By: #### B LDCX2 #### [facility] [address] [place] [address] Dr. Lisa Martinez PROF CHEM 8 (BAS METB)on Anion gap [Moles/Vol] 12.3 mmol/L Normal [facility] Comment on above: Performed By: #### B APPLICATION SUPPORT TECHNICIAN, BMP #### [facility] [address] [place] [address] Dr. Lisa Martinez Calcium [Mass/Vol] 9.3 mg/dL Normal 8.5-10.1 [facility] Comment on above: Performed By: #### B APPLICATION SUPPORT TECHNICIAN, BMP #### [facility] [address] [place] [address] Dr. Lisa Martinez Chloride [Moles/Vol] 102 mmol/L Normal 98-107 [facility] Comment on above: Performed By: #### B APPLICATION SUPPORT TECHNICIAN, BMP #### [facility] [address] [address] [address] Lisa Martinez CO2 [Moles/Vol] 30.8 mmol/L Normal 21.0-32.0 [facility] Comment on above: Performed By: #### B APPLICATION SUPPORT TECHNICIAN, BMP #### [facility] [address] [place] [address] Dr. Lisa Martinez Creatinine [Mass/Vol] 1.45 mg/dL Critically high 0.55-1.02 [facility] Comment on above: Performed By: #### B APPLICATION SUPPORT TECHNICIAN, BMP #### [facility] [address] [place] [address] Dr. Lisa Martinez EGFR-AF SWISS 42 mL/min/1.73m2 Critically low >=60 [facility] Comment on above: Performed By: #### B APPLICATION SUPPORT TECHNICIAN, BMP #### [facility] [address] [place] [address] Dr. Lisa Martinez EGFR-NON AF SWISS 34 mL/min/1.73m2 Critically low >=60 [facility] Comment on above: Performed By: #### B APPLICATION SUPPORT TECHNICIAN, BMP #### [facility] [address] [place] [address] Dr. Lisa Martinez Glucose [Mass/Vol] 103 mg/dL Normal 74-106 [facility] Comment on above: Performed By: #### B APPLICATION SUPPORT TECHNICIAN, BMP #### [facility] [address] [place] [address] Dr. Lisa Martinez Potassium [Moles/Vol] 4.1 mmol/L Normal 3.5-5.1 [facility] Comment on above: Performed By: #### B APPLICATION SUPPORT TECHNICIAN, BMP #### [facility] [address] [address] [address] Lisa Martinez Sodium [Moles/Vol] 141 mmol/L Normal 136-145 [facility] Comment on above: Performed By: #### B APPLICATION SUPPORT TECHNICIAN, BMP #### [facility] [address] [address] [address] Lisa Martinez Urea nitrogen [Mass/Vol] 26.0 mg/dL Critically high 7.0-18.0 [facility] Comment on above: Performed By: #### B APPLICATION SUPPORT TECHNICIAN, BMP #### [facility] [address] [address] [address] Lisa Martinez Urea nitrogen/Creatinine [Mass ratio] 17.9 mg/mg Normal [facility] Comment on above: Performed By: #### B APPLICATION SUPPORT TECHNICIAN, BMP #### [facility] [address] [address] [address] Lisa Martinez BNPon 10-06-2022 Natriuretic peptide B (Bld) [Mass/Vol] 6211.0 pg/mL Critically high <=1,800.0 [facility] Comment on above: Performed By: #### C MADM, LIVER, CMP, BNP ####[facility] [address] [place] [address]Dr. Lisa Martinez CARDIAC DONY ADMITon 023 CK [Catalytic activity/Vol] 50 U/L Normal 26-192 [facility] Comment on above: Performed By: #### C MADM, LIVER, CMP, BNP ####[facility] [address] [place] [id number] Martinez CK.MB [Mass/Vol] 0.89 ng/mL Normal <=3.60 [facility] Comment on above: Performed By: #### C MADM, LIVER, CMP, BNP ####[facility] [address] [place] [address]Dr. Lisa Martinez HSTROP 19.1 pg/mL Normal 4.0-51.3 [facility] Comment on above: Result Comment: CUT- OFF POINTS HAVE BEEN ESTABLISHED BASED ON THE FOURTH UNIVERSAL DEFINITIONS OF MYOCARDIAL INFARCTION. THE UPPER REFERENCE LIMIT (URL) OF TROPONIN, DEFINED THE 99TH PERCENTILE OF cTnI DISTRIBUTION IN A REFERENCE POPULATION, HAS BEEN CONFIRMED THE DECISION THRESHOLD FOR MA DIAGNOSIS. Performed By: #### C MADM, LIVER, CMP, BNP ####[facility] [address] [place] [address]Dr. Lisa Martinez LISSY 56 ng/mL Normal 9-82 [facility] Comment on above: Performed By: #### C MADM, LIVER, CMP, BNP ####[facility] [address] [place] [id number]. Lisa Martinez CBC AUTO DIFFon 10-06-2022 BASO # 0.1 103/ul Normal 0.0-0.1 [facility] Comment on above: Performed By: #### C BC #### [facility] [address] [address] [address] Lisa Martinez Basophils/100 WBC (Bld) 0.7 % Normal 0.2-2.0 [facility] Comment on above: Performed By: #### C BC #### [facility] [address] [place] [address] Dr. Lisa Martinez EO # 0.2 103/ul Normal 0.0-0.7 [facility] Comment on above: Performed By: #### C BC #### [facility] [address] [place] [address] Dr. Lisa Martinez Eosinophils/100 WBC (Bld) 2.0 % Normal 0.9-7.0 [facility] Comment on above: Performed By: #### C BC #### [facility] [address] [place] [address] Dr. Lisa Martinez Erythrocyte distribution width (RBC) [Ratio] 15.7 % Critically high 11.0-15.0 [facility] Comment on above: Performed By: #### C BC #### [facility] [address] [place] [address] Dr. Lisa Martinez Hematocrit (Bld) [Volume fraction] 32.4 % Critically low 36.0-48.0 [facility] Comment on above: Performed By: #### C BC #### [facility] [address] [place] [address] Dr. Lisa Martinez Hemoglobin (Bld) [Mass/Vol] 10.0 g/dL Critically low 12.0-16.0 [facility] Comment on above: Performed By: #### C BC #### [facility] [address] [place] [address] Dr. Lisa Martinez IG # 0.02 10e3/ul Normal 0.00-0.03 [facility] Comment on above: Performed By: #### C BC #### [facility] [address] [place] [address] Dr. Lisa Martinez IG % 0.3 % Normal 0.0-0.5 [facility] Comment on above: Performed By: #### C BC #### [facility] [address] [place] [address] Dr. Lisa Martinez LYMPH # 0.7 103/ul Critically low 1.2-3.8 [facility] Comment on above: Performed By: #### C BC #### [facility] [address] [place] [address] Dr. Lisa Martinez Lymphocytes/100 WBC (Bld) 9.2 % Critically low 20.5-60.0 [facility] Comment on above: Performed By: #### C BC #### [facility] [address] [place] [address] Dr. Lisa Martinez MANUAL DIFF REQ NO Normal [facility] Comment on above: Performed By: #### C BC #### [facility] [address] [place] [address] Dr. Lisa Martinez MCH (RBC) [Entitic mass] 29.8 pg Normal 26.7-34.0 [facility] Comment on above: Performed By: #### C BC #### [facility] [address] [place] [address] Dr. Lisa Martinez MCHC (RBC) [Mass/Vol] 30.9 g/dL Normal 29.9-35.2 [facility] Comment on above: Performed By: #### C BC #### [facility] [address] [place] [address] Dr. Lisa Martinez MCV (RBC) [Entitic vol] 96.4 fL Normal 81.0-99.0 [facility] Comment on above: Performed By: #### C BC #### [facility] [address] [place] [address] Dr. Lisa Martinez MONO # 0.5 103/ul Normal 0.3-0.8 [facility] Comment on above: Performed By: #### C BC #### [facility] [address] [place] [address] Dr. Lisa Martinez Monocytes/100 WBC (Bld) 6.4 % Normal 1.7-12.0 [facility] Comment on above: Performed By: #### C BC #### [facility] [address] [place] [address] Dr. Lisa Martinez NEUT # 6.2 103/ul Normal 1.4-6.5 [facility] Comment on above: Performed By: #### C BC #### [facility] [address] [place] [address] Dr. Lisa Martinez Neutrophils/100 WBC (Bld) 81.4 % Critically high 43.0-75.0 [facility] Comment on above: Performed By: #### C BC #### [facility] [address] [place] [address] Dr. Lisa Martinez Platelet mean volume (Bld) [Entitic vol] 10.2 fL Normal 9.5-13.5 [facility] Comment on above: Performed By: #### C BC #### [facility] [address] [place] [address] Dr. Lisa Martinez PLT 228 103/ul Normal 150-450 [facility] Comment on above: Performed By: #### C BC #### [facility] [address] [place] [address] Dr. Lisa Martinez RBC 3.36 106/ul Critically low 4.20-5.40 [facility] Comment on above: Performed By: #### C BC #### [facility] [address] [place] [address] Dr. Lisa Martinez WBC 7.6 103/ul Normal 4.0-11.0 [facility] Comment on above: Performed By: #### C #### [facility] [address] [place] [address] [address] Lisa Martinez CTA CHEST WO W [...] JENNY MARQUEZ Date: 2022-10-06 14:18 Normal [facility] Covid-19 PCR (CVDTB)on 09-08 SARS-CoV-2 (COVID-19) RNA RACIEL+probe Ql (Unsp spec) Not detected Normal NOT DETECTED [facility] Comment on above: Result Comment: [...] for this test is supported by the [place] of [employer] and Human Service's declaration that [...] be used). Performed By: #### C VDTBH ####[facility] [address] [place] [address]Dr. Lisa Martinez DIGOXINon 10-06-2022 DIG 2.3 ng/mL Critically high 0.9-2.0 [facility] Comment on above: Performed By: #### C BC #### [facility] [address] [place] [address] Dr. Lisa Martinez LIVER PROFILEon 10-06-2022 BILI, CONJUGATED 0.4 mg/dL Critically high 0.0-0.2 [facility] Comment on above: Performed By: #### C MADM, LIVER, CMP, BNP ####[facility] [address] [place] [address]Dr. Lisa Martinez POINT OF CARE GLUCOSEon 09-08 Glucose [Mass/Vol] 154 mg/dL Critically high 74-106 [facility] Comment on above: Performed By: #### B APPLICATION SUPPORT TECHNICIAN, BMP #### [facility] [address] [place] [address] Dr. Lisa Martinez Glucose [Mass/Vol] 77 mg/dL Normal 74-106 [facility] Comment on above: Performed By: #### B APPLICATION SUPPORT TECHNICIAN, BMP #### [facility] [address] [address] [address] Lisa Martinez PROF 14(COMP METB)on 023 Albumin [Mass/Vol] 3.5 g/dL Normal 3.4-5.0 [facility] Comment on above: Performed By: #### C MADM, LIVER, CMP, BNP ####[facility] [address] [place] [address]Dr. Lisa Martinez Albumin/Globulin [Mass ratio] 0.8 {ratio} Normal [facility] Comment on above: Performed By: #### C MADM, LIVER, CMP, BNP ####[facility] [address] [place] [address]Dr. Lisa Martinez ALP [Catalytic activity/Vol] 94 U/L Normal 46-116 [facility] Comment on above: Performed By: #### C MADM, LIVER, CMP, BNP ####[facility] [address] [place] [address]Dr. Lisa Martinez ALT [Catalytic activity/Vol] 13 U/L Critically low 14-59 [facility] Comment on above: Performed By: #### C MADM, LIVER, CMP, BNP ####[facility] [address] [place] [address]Dr. Lisa Martinez Anion gap [Moles/Vol] 11.1 mmol/L Normal [facility] Comment on above: Performed By: #### C MADM, LIVER, CMP, BNP ####[facility] [address] [place] [address]Dr. Lisa Martinez AST [Catalytic activity/Vol] 15 U/L Normal 15-37 [facility] Comment on above: Performed By: #### C MADM, LIVER, CMP, BNP ####[facility] [address] [place] [address]Dr. Lisa Martinez Bilirubin [Mass/Vol] 1.6 mg/dL Critically high 0.2-1.0 [facility] Comment on above: Performed By: #### C MADM, LIVER, CMP, BNP ####[facility] [address] [place] [address]Dr. Lisa Martinez Calcium [Mass/Vol] 9.2 mg/dL Normal 8.5-10.1 [facility] Comment on above: Performed By: #### C MADM, LIVER, CMP, BNP ####[facility] [address] [place] [address]Dr. Lisa Martinez Chloride [Moles/Vol] 106 mmol/L Normal 98-107 [facility] Comment on above: Performed By: #### C MADM, LIVER, CMP, BNP ####[facility] [address] [place] [address]Dr. Lisa Martinez CO2 [Moles/Vol] 29.0 mmol/L Normal 21.0-32.0 [facility] Comment on above: Performed By: #### C MADM, LIVER, CMP, BNP ####[facility] [address] [place] [address]Dr. Lisa Martinez Creatinine [Mass/Vol] 1.43 mg/dL Critically high 0.55-1.02 [facility] Comment on above: Performed By: #### C MADM, LIVER, CMP, BNP ####[facility] [address] [place] [address]Dr. Lisa Martinez EGFR-AF SWISS 42 mL/min/1.73m2 Critically low >=60 [facility] Comment on above: Performed By: #### C MADM, LIVER, CMP, BNP ####[facility] [address] [place] [address]Dr. Lisa Martinez EGFR-NON AF SWISS 35 mL/min/1.73m2 Critically low >=60 [facility] Comment on above: Performed By: #### C MADM, LIVER, CMP, BNP ####[facility] [address] [place] [address]Dr. Lisa Martinez Globulin (S) [Mass/Vol] 4.2 g/dL Normal [facility] Comment on above: Performed By: #### C MADM, LIVER, CMP, BNP ####[facility] [address] [place] [address]Dr. Yilan Martinez Glucose [Mass/Vol] 114 mg/dL Critically high 74-106 [facility] Comment on above: Performed By: #### C MADM, LIVER, CMP, BNP ####[facility] [address] [place] [address]Dr. Lisa Martinez Potassium [Moles/Vol] 4.1 mmol/L Normal 3.5-5.1 [facility] Comment on above: Performed By: #### C MADM, LIVER, CMP, BNP ####[facility] [address] [place] [address]Dr. Lisa Martinez Protein [Mass/Vol] 7.7 g/dL Normal 6.4-8.2 [facility] Comment on above: Performed By: #### C MADM, LIVER, CMP, BNP ####[facility] [address] [place] [address]Dr. Lisa Martinez Sodium [Moles/Vol] 142 mmol/L Normal 136-145 [facility] Comment on above: Performed By: #### C MADM, LIVER, CMP, BNP ####[facility] [address] [place] [address]Dr. Lisa Martinez Urea nitrogen [Mass/Vol] 26.0 mg/dL Critically high 7.0-18.0 [facility] Comment on above: Performed By: #### C MADM, LIVER, CMP, BNP ####[facility] [address] [place] [address]Dr. Lisa Martinez Urea nitrogen/Creatinine [Mass ratio] 18.2 mg/mg Normal [facility] Comment on above: Performed By: #### C MADM, LIVER, CMP, BNP ####[facility] [address] [place] [address]DrIngrid Martinez PROTIMEon 10-06-2022 INR Coag (PPP) [Relative time] 1.09 {INR} Normal [facility] Comment on above: Performed By: #### B APPLICATION SUPPORT TECHNICIAN, BMP #### [facility] [address] [address] [address] Lisa Martinez INR GUIDELINES SEE BELOW Normal [facility] Comment on above: Result Comment: ANTONY RED INR: 2.0 - 3.0 CONDITIONS NOT LISTED BELOW 2.5 - 3.5 FOR PROSTHETIC HEART VALVE REPLACEMENT 2.5 - 3.5 RECURRENT THROMBOSIS Performed By: #### B APPLICATION SUPPORT TECHNICIAN, BMP #### [facility] [address] [place] [address] Dr. Lisa Martinez PT Coag (PPP) [Time] 11.5 s Normal 9.0-11.6 [facility] Comment on above: Performed By: #### B APPLICATION SUPPORT TECHNICIAN, BMP #### [facility] [address] [place] [address] Dr. Lisa Martinez PTTon 10-06-2022 aPTT Coag (Bld) [Time] 26.5 s Normal 22.3-36.2 [facility] Comment on above: Performed By: #### B APPLICATION SUPPORT TECHNICIAN, BMP #### [facility] [address] [place] [address] Dr. Lisa Martinez ECHOCARDIO M/2D COMPLETEon 1 08-27-2021 ECHOCARDIO M/2D COMPLETE Patient: JENNI QUINONES Exam Date: 06/26/2022 : 1940 Gender:F Ordering : FARZANEH ARNDT Admission #: [id number] Family : Order #: [id number] CLICK HERE TO VIEW EXAM ECHOCARDIOGRAM REPORT [...] 0.81 cm2, 0.87 cm2, 0.77 cm2 Deceleration [place]: 0.72 m/s2 Pressure Half-Time: 1.18 s Peak [...] Nova M.D. on 06/29/2022 at 15:34 Normal [facility] CBC AUTO DIFFon 05-02-2022 BASO # 0.0 103/ul Normal 0.0-0.1 [facility] Comment on above: Performed By: #### C BC #### [facility] [address] [place] [address] Dr. Lisa Martinez Basophils/100 WBC (Bld) 0.4 % Normal 0.2-2.0 [facility] Comment on above: Performed By: #### C BC #### [facility] [address] [place] [address] Dr. Lisa Martinez EO # 0.1 103/ul Normal 0.0-0.7 [facility] Comment on above: Performed By: #### C BC #### [facility] [address] [place] [address] Dr. Lisa Martinez Eosinophils/100 WBC (Bld) 1.8 % Normal 0.9-7.0 [facility] Comment on above: Performed By: #### C BC #### [facility] [address] [place] [address] Dr. Lisa Martinez Erythrocyte distribution width (RBC) [Ratio] 13.3 % Normal 11.0-15.0 [facility] Comment on above: Performed By: #### C BC #### [facility] [address] [place] [address] Dr. Lisa Martinez Hematocrit (Bld) [Volume fraction] 38.4 % Normal 36.0-48.0 [facility] Comment on above: Performed By: #### C BC #### [facility] [address] [place] [address] Dr. Lisa Martinez Hemoglobin (Bld) [Mass/Vol] 12.0 g/dL Normal 12.0-16.0 [facility] Comment on above: Performed By: #### C BC #### [facility] [address] [place] [address] Dr. Lisa Martinez IG # 0.09 10e3/ul Critically high 0.00-0.03 [facility] Comment on above: Performed By: #### C BC #### [facility] [address] [place] [address] Dr. Lisa Martinez IG % 1.6 % Critically high 0.0-0.5 [facility] Comment on above: Performed By: #### C BC #### [facility] [address] [place] [address] Dr. Lisa Martinez LYMPH # 0.9 103/ul Critically low 1.2-3.8 [facility] Comment on above: Performed By: #### C BC #### [facility] [address] [place] [address] Dr. Lisa Martinez Lymphocytes/100 WBC (Bld) 16.0 % Critically low 20.5-60.0 [facility] Comment on above: Performed By: #### C BC #### [facility] [address] [place] [address] Dr. Lisa Martinez MANUAL DIFF REQ NO Normal [facility] Comment on above: Performed By: #### C BC #### [facility] [address] [place] [address] Dr. Lisa Martinez MCH (RBC) [Entitic mass] 30.2 pg Normal 26.7-34.0 [facility] Comment on above: Performed By: #### C BC #### [facility] [address] [place] [address] Dr. Lisa Martinez MCHC (RBC) [Mass/Vol] 31.3 g/dL Normal 29.9-35.2 [facility] Comment on above: Performed By: #### C BC #### [facility] [address] [place] [address] Dr. Lisa Martinez MCV (RBC) [Entitic vol] 96.7 fL Normal 81.0-99.0 [facility] Comment on above: Performed By: #### C BC #### [facility] [address] [place] [address] Dr. Lisa Martinez MONO # 0.6 103/ul Normal 0.3-0.8 [facility] Comment on above: Performed By: #### C BC #### [facility] [address] [place] [address] Dr. Lisa Martinez Monocytes/100 WBC (Bld) 11.3 % Normal 1.7-12.0 [facility] Comment on above: Performed By: #### C BC #### [facility] [address] [place] [address] Dr. Lisa Martinez NEUT # 3.9 103/ul Normal 1.4-6.5 [facility] Comment on above: Performed By: #### C BC #### [facility] [address] [place] [address] Dr. Lisa Martinez Neutrophils/100 WBC (Bld) 68.9 % Normal 43.0-75.0 [facility] Comment on above: Performed By: #### C BC #### [facility] [address] [place] [address] Dr. Lisa Martinez Platelet mean volume (Bld) [Entitic vol] 10.7 fL Normal 9.5-13.5 [facility] Comment on above: Performed By: #### C BC #### [facility] [address] [place] [address] Dr. Lisa Martinez PLT 164 103/ul Normal 150-450 [facility] Comment on above: Performed By: #### C BC #### [facility] [address] [address] [address] Lisa Martinez RBC 3.97 106/ul Critically low 4.20-5.40 [facility] Comment on above: Performed By: #### C BC #### [facility] [address] [address] [address] Lisa Martinez WBC 5.6 103/ul Normal 4.0-11.0 [facility] Comment on above: Performed By: #### C BC #### [facility] [address] [address] [address] Lisa Martinez PROF 14(COMP METB)on 022 Albumin [Mass/Vol] 2.8 g/dL Critically low 3.4-5.0 [facility] Comment on above: Performed By: #### U RCX #### [facility] [address] [place] [address] Dr. Lisa Martinez Albumin/Globulin [Mass ratio] 0.7 {ratio} Normal [facility] Comment on above: Performed By: #### U RCX #### [facility] [address] [place] [address] Dr. Lisa Martinez ALP [Catalytic activity/Vol] 74 U/L Normal 46-116 [facility] Comment on above: Performed By: #### U RCX #### [facility] [address] [place] [address] Dr. Lisa Martinez ALT [Catalytic activity/Vol] 11 U/L Critically low 14-59 [facility] Comment on above: Performed By: #### U RCX #### [facility] [address] [place] [address] Dr. Lisa Martinez Anion gap [Moles/Vol] 13.5 mmol/L Normal [facility] Comment on above: Performed By: #### U RCX #### [facility] [address] [place] [address] Dr. Lisa Martinez AST [Catalytic activity/Vol] 14 U/L Critically low 15-37 [facility] Comment on above: Performed By: #### U RCX #### [facility] [address] [address] [address] Lisa Martinez Bilirubin [Mass/Vol] 0.5 mg/dL Normal 0.2-1.0 [facility] Comment on above: Performed By: #### U RCX #### [facility] [address] [address] [address] Lisa Martinez Calcium [Mass/Vol] 8.5 mg/dL Normal 8.5-10.1 [facility] Comment on above: Performed By: #### U RCX #### [facility] [address] [address] [address] Lisa Martinez Chloride [Moles/Vol] 103 mmol/L Normal 98-107 [facility] Comment on above: Performed By: #### U RCX #### [facility] [address] [place] [address] Dr. Lisa Martinez CO2 [Moles/Vol] 24.5 mmol/L Normal 21.0-32.0 [facility] Comment on above: Performed By: #### U RCX #### [facility] [address] [place] [address] Dr. Lisa Martinez Creatinine [Mass/Vol] 1.43 mg/dL Critically high 0.55-1.02 [facility] Comment on above: Performed By: #### U RCX #### [facility] [address] [place] [address] Dr. Lisa Martinez EGFR-AF SWISS 42 mL/min/1.73m2 Critically low >=60 [facility] Comment on above: Performed By: #### U RCX #### [facility] [address] [place] [address] Dr. Lisa Martinez EGFR-NON AF SWISS 35 mL/min/1.73m2 Critically low >=60 [facility] Comment on above: Performed By: #### U RCX #### [facility] [address] [place] [address] Dr. Lisa Martinez Globulin (S) [Mass/Vol] 4.3 g/dL Normal [facility] Comment on above: Performed By: #### U RCX #### [facility] [address] [place] [address] Dr. Lisa Martinez Glucose [Mass/Vol] 142 mg/dL Critically high 74-106 [facility] Comment on above: Performed By: #### U RCX #### [facility] [address] [place] [address] Dr. Lisa Martinez Potassium [Moles/Vol] 4.0 mmol/L Normal 3.5-5.1 [facility] Comment on above: Performed By: #### U RCX #### [facility] [address] [place] [address] Dr. Lisa Martinez Protein [Mass/Vol] 7.1 g/dL Normal 6.4-8.2 [facility] Comment on above: Performed By: #### U RCX #### [facility] [address] [place] [address] Dr. Lisa Martinez Sodium [Moles/Vol] 137 mmol/L Normal 136-145 [facility] Comment on above: Performed By: #### U RCX #### [facility] [address] [place] [address] Dr. Lisa Martinez Urea nitrogen [Mass/Vol] 31.0 mg/dL Critically high 7.0-18.0 [facility] Comment on above: Performed By: #### U RCX #### [facility] [address] [place] [address] Dr. Lisa Martinez Urea nitrogen/Creatinine [Mass ratio] 21.7 mg/mg Normal [facility] Comment on above: Performed By: #### U RCX #### [facility] [address] [place] [address] Dr. Lisa Martinez CBC AUTO DIFFon 05-01-2022 BASO # 0.0 103/ul Normal 0.0-0.1 [facility] Comment on above: Performed By: #### U RCX #### [facility] [address] [place] [address] Dr. Lisa Martinez Basophils/100 WBC (Bld) 0.3 % Normal 0.2-2.0 [facility] Comment on above: Performed By: #### U RCX #### [facility] [address] [place] [address] Dr. Lisa Martinez EO # 0.1 103/ul Normal 0.0-0.7 [facility] Comment on above: Performed By: #### U RCX #### [facility] [address] [place] [address] Dr. Lisa Martinez Eosinophils/100 WBC (Bld) 0.9 % Normal 0.9-7.0 [facility] Comment on above: Performed By: #### U RCX #### [facility] [address] [place] [address] Dr. Lisa Martinez Erythrocyte distribution width (RBC) [Ratio] 13.4 % Normal 11.0-15.0 [facility] Comment on above: Performed By: #### U RCX #### [facility] [address] [place] [address] Dr. Lisa Martinez Hematocrit (Bld) [Volume fraction] 41.6 % Normal 36.0-48.0 [facility] Comment on above: Performed By: #### U RCX #### [facility] [address] [place] [address] Dr. Lisa Martinez Hemoglobin (Bld) [Mass/Vol] 12.8 g/dL Normal 12.0-16.0 [facility] Comment on above: Performed By: #### U RCX #### [facility] [address] [place] [address] Dr. Lisa Martinez IG # 0.16 10e3/ul Critically high 0.00-0.03 [facility] Comment on above: Performed By: #### U RCX #### [facility] [address] [place] [address] Dr. Lisa Martinez IG % 1.6 % Critically high 0.0-0.5 [facility] Comment on above: Performed By: #### U RCX #### [facility] [address] [place] [address] Dr. Lisa Martinez LYMPH # 0.8 103/ul Critically low 1.2-3.8 [facility] Comment on above: Performed By: #### U RCX #### [facility] [address] [place] [address] Dr. Lisa Martinez Lymphocytes/100 WBC (Bld) 7.8 % Critically low 20.5-60.0 [facility] Comment on above: Performed By: #### U RCX #### [facility] [address] [place] [address] Dr. Lisa Martinez MANUAL DIFF REQ NO Normal [facility] Comment on above: Performed By: #### U RCX #### [facility] [address] [place] [address] Dr. Lisa Martinez MCH (RBC) [Entitic mass] 29.8 pg Normal 26.7-34.0 [facility] Comment on above: Performed By: #### U RCX #### [facility] [address] [place] [address] Dr. Lisa Martinez MCHC (RBC) [Mass/Vol] 30.8 g/dL Normal 29.9-35.2 [facility] Comment on above: Performed By: #### U RCX #### [facility] [address] [place] [address] Dr. Lisa Martinez MCV (RBC) [Entitic vol] 96.7 fL Normal 81.0-99.0 [facility] Comment on above: Performed By: #### U RCX #### [facility] [address] [place] [address] Dr. Lisa Martinez MONO # 0.8 103/ul Normal 0.3-0.8 [facility] Comment on above: Performed By: #### U RCX #### [facility] [address] [place] [address] Dr. Lisa Martinez Monocytes/100 WBC (Bld) 8.4 % Normal 1.7-12.0 [facility] Comment on above: Performed By: #### U RCX #### [facility] [address] [place] [address] Dr. Lisa Martinez NEUT # 7.9 103/ul Critically high 1.4-6.5 [facility] Comment on above: Performed By: #### U RCX #### [facility] [address] [place] [address] Dr. Lisa Martinez Neutrophils/100 WBC (Bld) 81.0 % Critically high 43.0-75.0 [facility] Comment on above: Performed By: #### U RCX #### [facility] [address] [place] [address] Dr. Lisa Martinez Platelet mean volume (Bld) [Entitic vol] 10.6 fL Normal 9.5-13.5 [facility] Comment on above: Performed By: #### U RCX #### [facility] [address] [place] [address] Dr. Lisa Martinez PLT 211 103/ul Normal 150-450 [facility] Comment on above: Performed By: #### U RCX #### [facility] [address] [place] [address] Dr. Lisa Martinez RBC 4.30 106/ul Normal 4.20-5.40 [facility] Comment on above: Performed By: #### U RCX #### [facility] [address] [place] [address] Dr. Lisa Martinez WBC 9.8 103/ul Normal 4.0-11.0 [facility] Comment on above: Performed By: #### U RCX #### [facility] [address] [place] [address] Dr. Lisa Martinez DIGOXINon 05-01-2022 DIG 0.7 ng/mL Critically low 0.9-2.0 [facility] Comment on above: Performed By: #### B APPLICATION SUPPORT TECHNICIAN, BMP #### [facility] [address] [place] [address] Dr. Lisa Martinez GI PANEL (PCR)on 05-01-2022 Adenovirus F 40/41 Not detected Normal NOT DETECTED [facility] Comment on above: Performed By: #### B LDCX2 #### [facility] [address] [place] [address] Dr. Lisa Martinez Astrovirus Not detected Normal NOT DETECTED [facility] Comment on above: Performed By: #### B LDCX2 #### [facility] [address] [place] [address] Dr. Lisa Martinez C. Diff toxin A/B Not detected Normal NOT DETECTED [facility] Comment on above: Performed By: #### B LDCX2 #### [facility] [address] [place] [address] Dr. Lisa Martinez Campylobacter Not detected Normal NOT DETECTED [facility] Comment on above: Performed By: #### B LDCX2 #### [facility] [address] [place] [address] Dr. Lisa Martinez Cryptosporidium Not detected Normal NOT DETECTED [facility] Comment on above: Performed By: #### B LDCX2 #### [facility] [address] [place] [address] Dr. Lisa Martinez Cyclos. Cayetanensis Not detected Normal NOT DETECTED [facility] Comment on above: Performed By: #### B [id number] #### [facility] [address] [place] [address] Dr. Lisa Martinez E. Coli O157 Not Applicable Normal Not Applicable [facility] Comment on above: Performed By: #### B LDCX2 #### [facility] [address] [place] [address] Dr. Lisa Martinez E. histolytica Not detected Normal NOT DETECTED [facility] Comment on above: Performed By: #### B [id number] #### [facility] [address] [place] [address] Dr. Lisa Martinez EAEC Not detected Normal NOT DETECTED [facility] Comment on above: Performed By: #### B [id number] #### [facility] [address] [place] [address] Dr. Lisa Martinez EIEC Not detected Normal NOT DETECTED [facility] Comment on above: Performed By: #### B [id number] #### [facility] [address] [place] [address] Dr. Lisa Martinez EPEC Not detected Normal NOT DETECTED [facility] Comment on above: Performed By: #### B [id number] #### [facility] [address] [address] [address] Lisa Martinez ETEC Not detected Normal NOT DETECTED [facility] Comment on above: Performed By: #### B [id number] #### [facility] [address] [address] [address] Lisa Perrin Lamblia Not detected Normal NOT DETECTED [facility] Comment on above: Performed By: #### B [id number] #### [facility] [address] [address] [address] Lisa MALDONADO CONTROLS PASSED Normal [facility] Comment on above: Performed By: #### B [id number] #### [facility] [address] [place] [address] Dr. Lisa PEREZ HEADER GI PANEL BACTERIA Normal [facility] Comment on above: Performed By: #### B LDCX2 #### [facility] [address] [address] [address] Lisa HIRSCH ECOLI GI PANEL DIARRHEAGEN IC E.COLI / SHIGELLA Normal [facility] Comment on above: Performed By: #### B LDCX2 #### [facility] [address] [address] [address] Lisa HIRSCH INFO SEE BELOW Normal [facility] Comment on above: Result Comment: EAEC - Enteroaggregative E. Coli EPEC- Enteropathogenic E. Coli ETEC- Enterotoxigenic E. Coli lt/st STEC- Shigella-like toxin-producing E. Coli stx1/stx2 EIEC- Shigella/Enteroinvasive E. Coli Performed By: #### B LDCX2 #### [facility] [address] [place] [address] Dr. Lisa HIRSCH PARASITES GI PANEL PARASITES Normal [facility] Comment on above: Performed By: #### B [id number] #### [facility] [address] [address] [address] Lisa HIRSCH VIRUS GI PANEL VIRUSES Normal [facility] Comment on above: Performed By: #### B [id number] #### [facility] [address] [place] [address] Dr. Lisa Martinez Norovirus GI/GII Not detected Normal NOT DETECTED [facility] Comment on above: Performed By: #### B [id number] #### [facility] [address] [place] [address] Dr. Lisa Martinez P. Shigelloides Not detected Normal NOT DETECTED [facility] Comment on above: Performed By: #### B [id number] #### [facility] [address] [place] [address] Dr. Lisa Martinez Rotavirus A Not detected Normal NOT DETECTED [facility] Comment on above: Performed By: #### B [email or web address] #### [facility] [address] [place] [address] Dr. Lisa Martinez Salmonella Not detected Normal NOT DETECTED [facility] Comment on above: Performed By: #### [id number] [email or web address] #### [facility] [address] [place] [address] Dr. Lisa Martinez Sapovirus Not detected Normal NOT DETECTED [facility] Comment on above: Performed By: #### B [email or web address] #### [facility] [address] [place] [address] Dr. Lisa Martinez STEC Not detected Normal NOT DETECTED [facility] Comment on above: Performed By: #### B [email or web address] #### [facility] [address] [place] [address] Dr. Lisa Martinez Vibrio Not detected Normal NOT DETECTED [facility] Comment on above: Performed By: #### B [email or web address] #### [facility] [address] [place] [address] Dr. Lisa Martinez Vibrio Cholera Not detected Normal NOT DETECTED [facility] Comment on above: Performed By: #### B [email or web address] #### [facility] [address] [place] [address] Dr. Lisa Martinez Y. Enterocolitica Not detected Normal NOT DETECTED [facility] Comment on above: Performed By: #### B [email or web address] #### [facility] [address] [place], [place] [id number] Dr. Lisa Martinez MAGNESIUMon 05-01-2022 Magnesium [Mass/Vol] 2.0 mg/dL Normal 1.8-2.4 [facility] Comment on above: Performed By: #### M G ####[facility] [address] [address]. Lisa Martinez POINT OF CARE GLUCOSEon 04-09 Glucose [Mass/Vol] 184 mg/dL Critically high 74-106 [facility] Comment on above: Performed By: #### U RCX #### [facility] [address] [address] [address] Lisa Martinez Glucose [Mass/Vol] 137 mg/dL Critically high -106 [facility] Comment on above: Result Comment: Foll ow Protocol Performed By: #### C BC #### [facility] [address] [place] [address] Dr. Lisa Martinez Glucose [Mass/Vol] 170 mg/dL Critically high -106 [facility] Comment on above: Result Comment: Foll ow Protocol Performed By: #### P OCGLUC ####[facility] [address] [address]DrIngrid Martinez PROF 14(COMP METB)on 022 Albumin [Mass/Vol] 3.0 g/dL Critically low 3.4-5.0 [facility] Comment on above: Performed By: #### C MP ####[facility] [facility] [address] [place] [address]DrIngrid Martinez Albumin/Globulin [Mass ratio] 0.6 {ratio} Normal [facility] Comment on above: Performed By: #### C MP ####[facility] [address] [place] [id number] Martinez ALP [Catalytic activity/Vol] 101 U/L Normal 46-116 [facility] Comment on above: Performed By: #### C MP ####[facility] [address] [place] [address]DrIngrid Martinez ALT [Catalytic activity/Vol] 16 U/L Normal 14-59 [facility] Comment on above: Performed By: #### C MP ####[facility] [address] [place] [id number]. Lisa Martinez Anion gap [Moles/Vol] 9.7 mmol/L Normal [facility] Comment on above: Performed By: #### C MP ####[facility] [address] [place] [id number]. Lisa Juan AST [Catalytic activity/Vol] 13 U/L Critically low 15-37 [facility] Comment on above: Performed By: #### C MP ####[facility] [address]erse[address] [place] [id number]. Lisa Juan Bilirubin [Mass/Vol] 0.5 mg/dL Normal 0.2-1.0 [facility] Comment on above: Performed By: #### C MP ####[facility] [address] [place] [address]Dr. Lisa Martinez Calcium [Mass/Vol] 8.8 mg/dL Normal 8.5-10.1 [facility] Comment on above: Performed By: #### C MP ####[facility] [address] [place] [id number]. Lisa Martinez Chloride [Moles/Vol] 104 mmol/L Normal 98-107 [facility] Comment on above: Performed By: #### C MP ####[facility] [address]qgcvttzn8[address] [place] [id number]. Lisa Martinez CO2 [Moles/Vol] 26.8 mmol/L Normal 21.0-32.0 [facility] Comment on above: Performed By: #### C MP ####[facility] Tsvviyctbe[address] [place] [id number]. Lisa Juan Creatinine [Mass/Vol] 1.51 mg/dL Critically high 0.55-1.02 [facility] Comment on above: Performed By: #### C MP ####[facility] [address] [place] [id number]. Lisa Martinez EGFR-AF SWISS 40 mL/min/1.73m2 Critically low >=60 [facility] Comment on above: Performed By: #### C MP ####[facility] [address]zdk[address] [place] [id number]. Lisa Martinez EGFR-NON AF SWISS 33 mL/min/1.73m2 Critically low >=60 [facility] Comment on above: Performed By: #### C MP ####[facility] [address]xf[address]ata[address] [place] [id number]. Lisa Martinez Globulin (S) [Mass/Vol] 4.8 g/dL Normal [facility] Comment on above: Performed By: #### C MP ####[facility] Ndlwpfg[address] [place] [id number]. Lisa Martinez Glucose [Mass/Vol] 177 mg/dL Critically high 74-106 [facility] Comment on above: Performed By: #### C MP ####[facility] Rwvjodglwv3[address] [place] [id number]. Lisa Martinez Potassium [Moles/Vol] 4.5 mmol/L Normal 3.5-5.1 [facility] Comment on above: Performed By: #### C MP ####[facility] [address]uk[address]bx[address] [place] [id number]. Lisa Martinez Protein [Mass/Vol] 7.8 g/dL Normal 6.4-8.2 [facility] Comment on above: Performed By: #### C MP ####[facility] [address]orqfqu[address] [place] [id number]. Lisa Martinez Sodium [Moles/Vol] 136 mmol/L Normal 136-145 [facility] Comment on above: Performed By: #### C MP ####[facility] [address]oyeamuycv[address] [place] [id number]. Lisa Martinez Urea nitrogen [Mass/Vol] 28.0 mg/dL Critically high 7.0-18.0 [facility] Comment on above: Performed By: #### C MP ####[facility] Mmtpldjqgo66[address] [place] [id number]. Lisa Juan Urea nitrogen/Creatinine [Mass ratio] 18.5 mg/mg Normal [facility] Comment on above: Performed By: #### C MP ####[facility] [address]up[address] [place] [address]Dr. Lisa Martinez BNPon 04-30-2022 Natriuretic peptide B (Bld) [Mass/Vol] 1752.0 pg/mL Normal <=1,800.0 [facility] Comment on above: Performed By: #### B APPLICATION SUPPORT TECHNICIAN, BMP #### [facility] [address] [place] [address] [address] Lisa Martinez CBC AUTO DIFFon 04-30-2022 BASO # 0.1 103/ul Normal 0.0-0.1 [facility] Comment on above: Performed By: #### C BC ####[facility] [address] [place] [address]DrIngrid Martinez Basophils/100 WBC (Bld) 0.6 % Normal 0.2-2.0 [facility] Comment on above: Performed By: #### C BC ####[facility] [address] [place], [place] [address]DrIngrid Martinez EO # 0.1 103/ul Normal 0.0-0.7 [facility] Comment on above: Performed By: #### C BC ####[facility] [address] [place], [place] [address]Dr. Lisa Martinez Eosinophils/100 WBC (Bld) 1.2 % Normal 0.9-7.0 [facility] Comment on above: Performed By: #### C BC ####[facility] N[address] [place], [place] [address]DrIngrid Martinez Erythrocyte distribution width (RBC) [Ratio] 13.2 % Normal 11.0-15.0 [facility] Comment on above: Performed By: #### C BC ####[facility] [address] [place], [place] [address]DrIngrid Martinez Hematocrit (Bld) [Volume fraction] 43.4 % Normal 36.0-48.0 [facility] Comment on above: Performed By: #### C BC ####[facility] [address] [place], [place] [address]Dr. Lisa Martinez Hemoglobin (Bld) [Mass/Vol] 14.2 g/dL Normal 12.0-16.0 [facility] Comment on above: Performed By: #### C BC ####[facility] [address] [place] [address]Dr. Lisa Martienz IG # 0.13 10e3/ul Critically high 0.00-0.03 [facility] Comment on above: Performed By: #### C BC ####[facility] U[address] [place] [address]Dr. Lisa Juan IG % 1.6 % Critically high 0.0-0.5 The [facility] Comment on above: Performed By: #### C BC ####[facility] [address] [place] [address]Dr. Lisa Juan LYMPH # 0.8 103/ul Critically low 1.2-3.8 The [facility] Comment on above: Performed By: #### C BC ####[facility] [address]xl[address]zb[address] [place] [address]Dr. Lisa Juan Lymphocytes/100 WBC (Bld) 9.8 % Critically low 20.5-60.0 [facility] Comment on above: Performed By: #### C BC ####[facility] [address]tw[address] [place] [address]Dr. Lisa Martinez MANUAL DIFF REQ NO Normal [facility] Comment on above: Performed By: #### C BC ####[facility] [address] [place], [place] [address]Dr. Lisa Martinez MCH (RBC) [Entitic mass] 30.0 pg Normal 26.7-34.0 [facility] Comment on above: Performed By: #### C BC ####[facility] [address]se[address] [place], [place] [address]Dr. Lisa Martinez MCHC (RBC) [Mass/Vol] 32.7 g/dL Normal 29.9-35.2 [facility] Comment on above: Performed By: #### C BC ####[facility] [address] [place], [place] [address]Dr. Lisa Martinez MCV (RBC) [Entitic vol] 91.8 fL Normal 81.0-99.0 [facility] Comment on above: Performed By: #### C BC ####[facility] [address] [place] [id number]. Lisa Martinez MONO # 1.2 103/ul Critically high 0.3-0.8 The [facility] Comment on above: Performed By: #### C BC ####[facility] [address] [place] [phone]. Lisa Juan Monocytes/100 WBC (Bld) 15.0 % Critically high 1.7-12.0 [facility] Comment on above: Performed By: #### C BC ####[facility] [address] [place] [address]Dr. Lisa Martinez NEUT # 5.8 103/ul Normal 1.4-6.5 [facility] Comment on above: Performed By: #### C BC ####[facility] [address] [place] [address]Dr. Lisa Juan Neutrophils/100 WBC (Bld) 71.8 % Normal 43.0-75.0 [facility] Comment on above: Performed By: #### C BC ####[facility] [address]km[address] [place] [address]Dr. Lisa Juan Platelet mean volume (Bld) [Entitic vol] 10.5 fL Normal 9.5-13.5 [facility] Comment on above: Performed By: #### C BC ####[facility] [address] [place] [id number]. Lisa Juan PLT 242 103/ul Normal 150-450 [facility] Comment on above: Performed By: #### C BC ####[facility] [address] [place] [phone]. Lisa Juan RBC 4.73 106/ul Normal 4.20-5.40 [facility] Comment on above: Performed By: #### C BC ####[facility] Eg[address]xr[address] [place] [id number] Martinez WBC 8.1 103/ul Normal 4.0-11.0 [facility] Comment on above: Performed By: #### C BC ####[facility] [address] [place] [address] Lisa [address] HEAD WO CONon 04-30-2022 [...] MEENA HAWKINS Date: 2022-04-30 07:46 Normal [facility] CULTURE BLOODon 04-30-2022 Microscopic examination of blood, culture Culture Observations: NO GROWTH AT 5 DAYS. Normal [facility] Comment on above: Performed By: #### B LDCX2 #### [facility] [address] [place] [address] [address] Lisa Martinez Microscopic examination of blood, culture Culture Observations: NO GROWTH AT 5 DAYS. Normal [facility] Comment on above: Performed By: #### B LDCX1 ####[facility] [address] [place] [address]Dr. Lisa Martinez CULTURE URINEon 04-30-2022 CULTURE URINE Culture Observations : No growth Normal [facility] Comment on above: Performed By: #### U RCX ####[facility] [address] [place] [address]DrIngrid Martinez Covid-19 PCR (CVDTB)on 04-09 SARS-CoV-2 (COVID-19) RNA RACIEL+probe Ql (Unsp spec) Detected Critically abnormal NOT DETECTED [facility] Comment on above: Result Comment: This test is not yet approved or cleared by the [place] FDA. When there are no FDA-approved or cleared tests available, and other criteria are met, FDA can make tests available under an emergency access mechanism called an Emergency Use Authorization (EUA). The EUA for this test is supported by the [place] [employer] and Human Service's declaration that [...] used). Performed By: #### C VDTB #### [facility] [address] [place] [address] Dr. Lisa Martinez ER URINE PROFILEon 2 Bilirubin Ql (U) Negative Normal NEGATIVE [facility] Comment on above: Performed By: #### C BC #### [facility] [address] [place] [address] Dr. Lisa Martinez Clarity (U) CLEAR Normal CLEAR [facility] Comment on above: Performed By: #### C BC #### [facility] [address] [place] [address] Dr. Lisa Martinez Color (U) LT. YELLOW Normal YELLOW [facility] Comment on above: Performed By: #### C BC #### [facility] [address] [place] [address] Dr. Lisa Martinez ERUAHD A micrscopic examina tion will be performed if indicated. Normal [facility] Comment on above: Performed By: #### C BC #### [facility] [address] [place] [address] Dr. Lisa Martinez Glucose Ql (U) Negative Normal NEGATIVE [facility] Comment on above: Performed By: #### C BC #### [facility] [address] [place] [address] Dr. Lisa Martinez Hemoglobin Ql (U) Negative Normal NEGATIVE [facility] Comment on above: Performed By: #### C BC #### [facility] [address] [place] [address] Dr. Lisa Martinez Ketones Ql (U) Negative Normal NEGATIVE [facility] Comment on above: Performed By: #### C BC #### [facility] [address] [place] [address] Dr. Lisa Martinez LEUKOCYTES Negative Normal NEGATIVE [facility] Comment on above: Performed By: #### C BC #### [facility] [address] [place] [address] Dr. Lisa Martinez Nitrite Ql (U) Positive Abnormal NEGATIVE [facility] Comment on above: Performed By: #### C BC #### [facility] [address] [place] [address] Dr. Lisa Martinez pH (U) 5.5 [pH] Normal 5-9 [facility] Comment on above: Performed By: #### C BC #### [facility] [address] [place] [address] Dr. Lisa Martinez SPEC GRAVITY 1.030 Abnormal 1.005-<=1.0 25 [facility] Comment on above: Performed By: #### C BC #### [facility] [address] [place] [address] Dr. Lisa Martinez UA PROTEIN Negative Normal NEGATIVE/ TRACE [facility] Comment on above: Performed By: #### C BC #### [facility] [address] [place] [address] Dr. Lisa Martinez UR MICRO IND INDICATED Normal [facility] Comment on above: Performed By: #### C BC #### [facility] [address] [place] [address] Dr. Lisa Martinez Urobilinogen Qn (U) 0.2 {Mike'U}/dL Normal 0.2 - 1. 0 [facility] Comment on above: Performed By: #### C BC #### [facility] [address] [place] [address] Dr. Lisa Martinez GLYCOHEMOGLOBIN A1Con 2021 ADA RECOMMENDATION SEE BELOW Normal [facility] Comment on above: Result Comment: ADA RECOMMENDED LIMIT 4.0 - 6.0 ADA THERAPEUTIC TARGET < 7.0 ACTION SUGGESTED > 7.0 Performed By: #### B APPLICATION SUPPORT TECHNICIAN, BMP #### [facility] [address] [address] [address] Lisa Martinez Glucose [Mass/Vol] 154 mg/dL Normal [facility] Comment on above: Performed By: #### B APPLICATION SUPPORT TECHNICIAN, BMP #### [facility] [address] [address] [address] Lisa Martinez HbA1c (Bld) [Mass fraction] 7.0 % Critically high 4.5-6.2 [facility] Comment on above: Performed By: #### B APPLICATION SUPPORT TECHNICIAN, BMP #### [facility] [address] [place] [address] Dr. Lisa Martinez LACTATE/LACTIC ACIDon 2021 Lactate [Moles/Vol] 1.1 mmol/L Normal 0.4-1.9 [facility] Comment on above: Performed By: #### L ACT ####[facility] [address] [place] [address]Dr. Lisa Martinez LIPASEon 04-30-2022 Lipase [Catalytic activity/Vol] 53.0 U/L Critically low 73.0-393.0 [facility] Comment on above: Performed By: #### B APPLICATION SUPPORT TECHNICIAN, BMP #### [facility] [address] [place] [address] Dr. Lisa Martinez LIVER PROFILEon 04-30-2022 Albumin [Mass/Vol] 3.4 g/dL Normal 3.4-5.0 [facility] Comment on above: Performed By: #### U RCX #### [facility] [address] [place] [address] Dr. Lisa Martinez Albumin/Globulin [Mass ratio] 0.7 {ratio} Normal [facility] Comment on above: Performed By: #### U RCX #### [facility] [address] [place] [address] Dr. Lisa Martinez ALP [Catalytic activity/Vol] 110 U/L Normal 46-116 [facility] Comment on above: Performed By: #### U RCX #### [facility] [address] [address] [address] Lisa Martinez ALT [Catalytic activity/Vol] 20 U/L Normal 14-59 [facility] Comment on above: Performed By: #### U RCX #### [facility] [address] [address] [address] Lisa Martinez AST [Catalytic activity/Vol] 16 U/L Normal 15-37 [facility] Comment on above: Performed By: #### U RCX #### [facility] [address] [address] [address] Lisa Martinez BILI, CONJUGATED 0.2 mg/dL Normal 0.0-0.2 [facility] Comment on above: Performed By: #### U RCX #### [facility] [address] [place] [address] Dr. Lisa Martinez Bilirubin [Mass/Vol] 0.7 mg/dL Normal 0.2-1.0 [facility] Comment on above: Performed By: #### U RCX #### [facility] [address] [place] [address] Dr. Lisa Martinez Globulin (S) [Mass/Vol] 5.0 g/dL Normal [facility] Comment on above: Performed By: #### U RCX #### [facility] [address] [place] [address] Dr. Lisa Martinez Protein [Mass/Vol] 8.4 g/dL Critically high 6.4-8.2 [facility] Comment on above: Performed By: #### U RCX #### [facility] [address] [place] [address] Dr. Lisa Martinez POINT OF CARE GLUCOSEon 10-2 Glucose [Mass/Vol] 203 mg/dL Critically high 74-106 [facility] Comment on above: Performed By: #### B APPLICATION SUPPORT TECHNICIAN, BMP #### [facility] [address] [place] [address] Dr. Lisa Martinez Glucose [Mass/Vol] 174 mg/dL Critically high 74-106 [facility] Comment on above: Performed By: #### C BC #### [facility] [address] [address] [address] Lisa Martinez Glucose [Mass/Vol] 149 mg/dL Critically high 74-106 [facility] Comment on above: Performed By: #### B LDCX2 #### [facility] [address] [place] [address] Dr. Lisa Martinez PROF CHEM 8 (BAS METB)on Anion gap [Moles/Vol] 15.3 mmol/L Normal [facility] Comment on above: Performed By: #### C BC #### [facility] [address] [address] [address] Lisa Martinez Calcium [Mass/Vol] 9.1 mg/dL Normal 8.5-10.1 [facility] Comment on above: Performed By: #### C BC #### [facility] [address] [place] [address] Dr. Lisa Martinez Chloride [Moles/Vol] 98 mmol/L Normal 98-107 [facility] Comment on above: Performed By: #### C BC #### [facility] [address] [place] [address] Dr. Lisa Martinez CO2 [Moles/Vol] 24.4 mmol/L Normal 21.0-32.0 [facility] Comment on above: Performed By: #### C BC #### [facility] [address] [place] [address] Dr. Lisa Martinez Creatinine [Mass/Vol] 1.44 mg/dL Critically high 0.55-1.02 [facility] Comment on above: Performed By: #### C BC #### [facility] [address] [place] [address] Dr. Lisa Martinez EGFR-AF SWISS 42 mL/min/1.73m2 Critically low >=60 [facility] Comment on above: Performed By: #### C BC #### [facility] [address] [place] [address] Dr. Lisa Martinez EGFR-NON AF SWISS 35 mL/min/1.73m2 Critically low >=60 [facility] Comment on above: Performed By: #### C BC #### [facility] [address] [address] [address] Lisa Martinez Glucose [Mass/Vol] 225 mg/dL Critically high 74-106 [facility] Comment on above: Performed By: #### C BC #### [facility] [address] [address] [address] Lisa Martinez Potassium [Moles/Vol] 4.7 mmol/L Normal 3.5-5.1 [facility] Comment on above: Performed By: #### C BC #### [facility] [address] [address] [address] Lisa Martinez Sodium [Moles/Vol] 133 mmol/L Critically low 136-145 [facility] Comment on above: Performed By: #### C BC #### [facility] [address] [address] [address] Lisa Martinez Urea nitrogen [Mass/Vol] 37.0 mg/dL Critically high 7.0-18.0 [facility] Comment on above: Performed By: #### C BC #### [facility] [address] [address] [address] Lisa Martinez Urea nitrogen/Creatinine [Mass ratio] 25.7 mg/mg Normal [facility] Comment on above: Performed By: #### C BC #### [facility] [address] [address] [address] Lisa Martinez PROTIMEon 04-30-2022 INR Coag (PPP) [Relative time] 1.02 {INR} Normal [facility] Comment on above: Performed By: #### K U #### [facility] [address] [address] [address] Lisa Martinez INR GUIDELINES SEE BELOW Normal [facility] Comment on above: Result Comment: ANTONY RED INR: 2.0 - 3.0 CONDITIONS NOT LISTED BELOW 2.5 - 3.5 FOR PROSTHETIC HEART VALVE REPLACEMENT 2.5 - 3.5 RECURRENT THROMBOSIS Performed By: #### K U #### [facility] [address] [address] [address] Lisa Martinez PT Coag (PPP) [Time] 11.0 s Normal 9.0-11.6 [facility] Comment on above: Performed By: #### K U #### [facility] [address] [place] [address] Dr. Lisa Martinez PTTon 04-30-2022 aPTT Coag (Bld) [Time] 27.5 s Normal 22.3-36.2 [facility] Comment on above: Performed By: #### K U #### [facility] [address] [place] [address] Dr. Lisa Martinez TROPONIN, HIGH SENSITIVITYon 04-30-2022 HSTROP 20.0 pg/mL Normal 4.0-51.3 [facility] Comment on above: Result Comment: CUT- OFF POINTS HAVE BEEN ESTABLISHED BASED ON THE FOURTH UNIVERSAL DEFINITIONS OF MYOCARDIAL INFARCTION. THE UPPER REFERENCE LIMIT (URL) OF TROPONIN, DEFINED THE 99TH PERCENTILE OF cTnI DISTRIBUTION IN A REFERENCE POPULATION, HAS BEEN CONFIRMED THE DECISION THRESHOLD FOR MA DIAGNOSIS. Performed By: #### U RCX #### [facility] [address] [place] [address] Dr. Lisa Martinez URINE MICROSCOPIC ONLYon BACTERIA MODERATE Abnormal NONE SEEN [facility] Comment on above: Performed By: #### K U #### [facility] [address] [place] [address] Dr. Lisa Martinez Bacteria identified Cx Nom (U) INDICATED Normal [facility] Comment on above: Performed By: #### K U #### [facility] [address] [place] [address] Dr. Lisa Martinez CAST NONE SEEN Normal NONE SEEN [facility] Comment on above: Performed By: #### K U #### [facility] [facility] [address] [place] [address] Dr. Lisa Martinez Crystals LM Nom (Urine sed) NONE SEEN Normal NONE SEEN [facility] Comment on above: Performed By: #### K U #### [facility] [address] [place] [address] Dr. Lisa Martinez Epithelial cells LM Ql (Urine sed) RARE Normal NONE SEEN /RARE [facility] Comment on above: Performed By: #### K U #### [facility] [address] [address] [address] Lisa Martinez MUCOUS NONE SEEN Normal NONE SEEN [facility] Comment on above: Performed By: #### K U #### [facility] [address] [address] [address] Lisa Martinez RBC NONE SEEN Abnormal 0-2 [facility] Comment on above: Performed By: #### K U #### [facility] [address] [place] [address] Dr. Lisa Martinez WBC 0-2 Abnormal NONE SEEN [facility] Comment on above: Performed By: #### K U #### [facility] [address] [place] [address] Dr. Lisa Martinez XR CHEST 1 Von [...] MEENA HAWKINS Date: 2022-04-30 07:42 Normal [facility] FREE T3on 04-12-2022 FREE T3 2.10 pg/mlL Critically low 2.18-3.98 [facility] Comment on above: Performed By: #### C VDTBH #### [facility] [address] [place] [address] Dr. Lisa Martinez FREE T4on 04-12-2022 Free T4 [Mass/Vol] 0.88 ng/dL Normal 0.76-1.46 [facility] Comment on above: Performed By: #### B LDCX2 #### [facility] [address] [place] [address] Dr. Lisa Martinez TSHon 04-12-2022 TSH 5.007 uIU/mL Critically high 0.358-3.740 The [facility] Comment on above: Performed By: #### C VDTBH #### [facility] [address] [place] [address] Dr. Lisa Martinez US THYROIDon 04-12-2022 US [...] MEENA HAWKINS Date: 2022-04-12 13:20 Normal [facility] CBC AUTO DIFFon 02-12-2022 BASO # 0.1 103/ul Normal 0.0-0.1 [facility] Comment on above: Performed By: #### K U #### [facility] [address] [place] [address] Dr. Lisa Martinez Basophils/100 WBC (Bld) 0.7 % Normal 0.2-2.0 [facility] Comment on above: Performed By: #### K U #### [facility] [address] [place] [address] Dr. Lisa Martinez EO # 0.3 103/ul Normal 0.0-0.7 [facility] Comment on above: Performed By: #### K U #### [facility] [address] [place] [address] Dr. Lisa Martinez Eosinophils/100 WBC (Bld) 3.3 % Normal 0.9-7.0 [facility] Comment on above: Performed By: #### K U #### [facility] [address] [address] [address] Lisa Martinez Erythrocyte distribution width (RBC) [Ratio] 13.0 % Normal 11.0-15.0 [facility] Comment on above: Performed By: #### K U #### [facility] [address] [address] [address] Lisa Martinez Hematocrit (Bld) [Volume fraction] 34.6 % Critically low 36.0-48.0 [facility] Comment on above: Performed By: #### K U #### [facility] [address] [place] [address] Dr. Lisa Martinez Hemoglobin (Bld) [Mass/Vol] 11.1 g/dL Critically low 12.0-16.0 [facility] Comment on above: Performed By: #### K U #### [facility] [address] [place] [address] Dr. Lisa Martinez IG # 0.04 10e3/ul Critically high 0.00-0.03 [facility] Comment on above: Performed By: #### K U #### [facility] [address] [place] [address] Dr. Lisa Mratinez IG % 0.4 % Normal 0.0-0.5 [facility] Comment on above: Performed By: #### K U #### [facility] [address] [place] [address] Dr. Lisa Martinez LYMPH # 1.0 103/ul Critically low 1.2-3.8 The [facility] Comment on above: Performed By: #### K U #### [facility] [address] [place] [address] Dr. Lisa Martinez Lymphocytes/100 WBC (Bld) 10.6 % Critically low 20.5-60.0 [facility] Comment on above: Performed By: #### K U #### [facility] [address] [place] [address] Dr. Lisa Martinez MANUAL DIFF REQ NO Normal [facility] Comment on above: Performed By: #### K U #### [facility] [address] [place], [place] [id number] Dr. Lisa Martinez MCH (RBC) [Entitic mass] 31.3 pg Normal 26.7-34.0 [facility] Comment on above: Performed By: #### K U #### [facility] [address] [place] [address] Dr. Lisa Martinez MCHC (RBC) [Mass/Vol] 32.1 g/dL Normal 29.9-35.2 [facility] Comment on above: Performed By: #### K U #### [facility] [address] [place] [address] Dr. Lisa Martinez MCV (RBC) [Entitic vol] 97.5 fL Normal 81.0-99.0 [facility] Comment on above: Performed By: #### K U #### [facility] [address] [place] [address] Dr. Lisa Martinez MONO # 0.9 103/ul Critically high 0.3-0.8 [facility] Comment on above: Performed By: #### K U #### [facility] [address] [place] [address] Dr. Lisa Martinez Monocytes/100 WBC (Bld) 9.5 % Normal 1.7-12.0 [facility] Comment on above: Performed By: #### K U #### [facility] [address] [place] [address] Dr. Lisa Martinez NEUT # 6.9 103/ul Critically high 1.4-6.5 [facility] Comment on above: Performed By: #### K U #### [facility] [address] [place] [address] Dr. Lisa Martinez Neutrophils/100 WBC (Bld) 75.5 % Critically high 43.0-75.0 [facility] Comment on above: Performed By: #### K U #### [facility] [address] [place] [address] Dr. Lisa Martinez Platelet mean volume (Bld) [Entitic vol] 9.9 fL Normal 9.5-13.5 [facility] Comment on above: Performed By: #### K U #### [facility] [address] [address] [address] Lisa Martinez PLT 255 103/ul Normal 150-450 [facility] Comment on above: Performed By: #### K U #### [facility] [address] [address] [address] Lisa Martinez RBC 3.55 106/ul Critically low 4.20-5.40 [facility] Comment on above: Performed By: #### K U #### [facility] [address] [address] [address] Lisa Martinez WBC 9.2 103/ul Normal 4.0-11.0 [facility] Comment on above: Performed By: #### K U #### [facility] [address] [address] [address] Lisa Martinez CRPon 02-12-2022 CRP 0.7 mg/dL Normal <=1.0 [facility] Comment on above: Performed By: #### B APPLICATION SUPPORT TECHNICIAN, BMP #### [facility] [address] [address] [address] Lisa Martinez SED RATE WESTERGRENon 2021 SED RATE 56 mm/hr Critically high <=30 [facility] Comment on above: Performed By: #### S EDR ####[facility] [address] [address]Dr. Lisa Martinez URIC ACID SERUMon 02-12-2022 Urate [Mass/Vol] 9.2 mg/dL Critically high 2.6-6.0 [facility] Comment on above: Performed By: #### B APPLICATION SUPPORT TECHNICIAN, BMP #### [facility] [address] [address] [address] Lisa Martinez XR FOOT LT MIN [...] ROSINA MENENDEZ Date: 2022-02-12 13:01 Normal [facility] HEMOGRAM AND PLATELon 2021 Hematocrit (Bld) [Volume fraction] 35.7 % Critically low 36.0-48.0 [facility] Comment on above: Performed By: #### U RCX #### [facility] [address] [place] [address] Dr. Lisa Martinez Hemoglobin (Bld) [Mass/Vol] 11.7 g/dL Critically low 12.0-16.0 [facility] Comment on above: Performed By: #### U RCX #### [facility] [address] [place] [address] Dr. Lisa Martinez MCH (RBC) [Entitic mass] 31.5 pg Normal 26.7-34.0 [facility] Comment on above: Performed By: #### U RCX #### [facility] [address] [place] [address] Dr. Lisa Martinez MCHC (RBC) [Mass/Vol] 32.8 g/dL Normal 29.9-35.2 [facility] Comment on above: Performed By: #### U RCX #### [facility] [address] [place] [address] Dr. Lisa Martinez MCV (RBC) [Entitic vol] 96.2 fL Normal 81.0-99.0 [facility] Comment on above: Performed By: #### U RCX #### [facility] [address] [place] [address] Dr. Lisa Martinez PLT 268 103/ul Normal 150-450 [facility] Comment on above: Performed By: #### U RCX #### [facility] [address] [place] [address] Dr. Lisa Martinez RBC 3.71 106/ul Critically low 4.20-5.40 [facility] Comment on above: Performed By: #### U RCX #### [facility] [address] [place] [address] Dr. Lisa Martinez WBC 9.3 103/ul Normal 4.0-11.0 [facility] Comment on above: Performed By: #### U RCX #### [facility] [address] [address] [address] Lisa Martinez PROF CHEM 8 (BAS METB)on Anion gap [Moles/Vol] 11.2 mmol/L Normal Th [facility] Comment on above: Performed By: #### C VDTBH #### [facility] [address] [address] [address] Lisa Martinez Calcium [Mass/Vol] 9.1 mg/dL Normal 8.5-10.1 [facility] Comment on above: Performed By: #### C VDTBH #### [facility] [address] [address] [address] Lisa Martinez Chloride [Moles/Vol] 104 mmol/L Normal 98-107 [facility] Comment on above: Performed By: #### C VDTBH #### [facility] [address] [address] [address] Lisa Martinez CO2 [Moles/Vol] 30.6 mmol/L Normal 21.0-32.0 [facility] Comment on above: Performed By: #### C VDTBH #### [facility] [address] [address] [address] Lisa Martinez Creatinine [Mass/Vol] 1.64 mg/dL Critically high 0.55-1.02 [facility] Comment on above: Performed By: #### C VDTBH #### [facility] [address] [address] [address] Lisa Martinez EGFR-AF SWISS 36 mL/min/1.73m2 Critically low >=60 [facility] Comment on above: Performed By: #### C VDTBH #### [facility] [address] [address] [address] Lisa Martinez EGFR-NON AF SWISS 30 mL/min/1.73m2 Critically low >=60 [facility] Comment on above: Performed By: #### C VDTBH #### [facility] [address] [address] [address] Lisa Martinez Glucose [Mass/Vol] 61 mg/dL Critically low 74-106 [facility] Comment on above: Performed By: #### C VDTBH #### [facility] [address] [address] [address] Lisa Martinez Potassium [Moles/Vol] 4.8 mmol/L Normal 3.5-5.1 [facility] Comment on above: Performed By: #### C VDTBH #### [facility] [address] [address] [address] Lisa Martinez Sodium [Moles/Vol] 141 mmol/L Normal 136-145 [facility] Comment on above: Performed By: #### C VDTBH #### [facility] [address] [address] [address] Lisa Martinez Urea nitrogen [Mass/Vol] 34.0 mg/dL Critically high 7.0-18.0 [facility] Comment on above: Performed By: #### C VDTBH #### [facility] [address] [place] [address] Dr. Lisa Martinez Urea nitrogen/Creatinine [Mass ratio] 20.7 mg/mg Normal [facility] Comment on above: Performed By: #### C VDTBH #### [facility] [address] [place] [address] Dr. Lisa Martinez Cardiovascular Lab Reporton 12-21-2021 Cardiovascular Lab Report [facility] Patient Name: Jenni Quinones [facility] MR #: [id number] Physician: Josefina Villanueva Department of [facility] Service Date: 12/20/2021 Division of Birthdate: 1940 Cardiology Room #: Adult Cardiovascular Services [place] [address] Cardiovascular Laboratory Report INDICATION: The patient is [...] consent. She was brought to the laborer stores in a fasting state. The right neck area was prepped and draped in usual fashion. Micropuncture technique and ultrasound guidance were used for access in the right internal jugular vein. A 6-[place] x 11 cm sheath was placed. A 6-[place] Becker catheter was used for right [...] Nova M.D. Date Trans: 12/21/2021 06:38 A/kali [id number] cc: Jasvir León M.D. [address] [place] [address] [facility]07 SARS-CoV-2 (COVID-19) RNA RACIEL+probe Ql (Unsp spec) Not detected Normal NOT DETECTED [facility] Comment on above: Result Comment: This test is not yet approved or cleared by the [place] FDA. When there are no FDA-approved or cleared tests available, and other criteria are met, FDA can make tests available under an emergency access mechanism called an Emergency Use Authorization (EUA). The EUA for this test is supported by the Destination Sign Repairer of Health and Human Service's (HHS's) declaration [...] SARS-CoV-2. Performed By: #### K U #### [facility] [address] [address] [address] Lisa Martinez HEMOGRAM AND PLATELon 2021 Hematocrit (Bld) [Volume fraction] 37.7 % Normal 36.0-48.0 [facility] Comment on above: Performed By: #### H H ####[facility] [address] [address]Dr. Lisa Martinez Hemoglobin (Bld) [Mass/Vol] 11.8 g/dL Critically low 12.0-16.0 [facility] Comment on above: Performed By: #### H H ####[facility] [address] [address]Dr. Lisa Martinez MCH (RBC) [Entitic mass] 30.7 pg Normal 26.7-34.0 [facility] Comment on above: Performed By: #### H H ####[facility] [address] [address]Dr. Lisa Martinez MCHC (RBC) [Mass/Vol] 31.3 g/dL Normal 29.9-35.2 [facility] Comment on above: Performed By: #### H H ####[facility] [address] [address]Dr. Lisa Martinez MCV (RBC) [Entitic vol] 98.2 fL Normal 81.0-99.0 [facility] Comment on above: Performed By: #### H H ####[facility] [address] [address]Dr. Lisa Martinez PLT 238 103/ul Normal 150-450 [facility] Comment on above: Performed By: #### H H ####[facility] [address] [place], [place] [address]Dr. Lisa Martinez RBC 3.84 106/ul Critically low 4.20-5.40 [facility] Comment on above: Performed By: #### H H ####[facility] [address] [place], [place] [address]DrIngrid Martinez WBC 8.6 103/ul Normal 4.0-11.0 [facility] Comment on above: Performed By: #### H H ####[facility] [address] [place], [place] [address]DrIngrid Martinez PROF CHEM 8 (BAS METB)on Anion gap [Moles/Vol] 13.7 mmol/L Normal [facility] Comment on above: Performed By: #### B MP ####[facility] [address] [address]DrIngrid aMrtinez Calcium [Mass/Vol] 9.1 mg/dL Normal 8.5-10.1 [facility] Comment on above: Performed By: #### B MP ####[facility] [address] [place], [place] [address]DrIngrid Martinez Chloride [Moles/Vol] 107 mmol/L Normal 98-107 [facility] Comment on above: Performed By: #### B MP ####[facility] [address] [place], [place] [address]DrIngrid Martinez CO2 [Moles/Vol] 26.9 mmol/L Normal 21.0-32.0 [facility] Comment on above: Performed By: #### B MP ####[facility] [address] [address]Dr. Lisa Martinez Creatinine [Mass/Vol] 1.48 mg/dL Critically high 0.55-1.02 [facility] Comment on above: Performed By: #### B MP ####[facility] [address] [place], [place] [address]Dr. Lisa Martinez EGFR-AF SWISS 41 mL/min/1.73m2 Critically low >=60 [facility] Comment on above: Performed By: #### B MP ####[facility] [address] [place], [place] [address]Dr. Lisa Martinez EGFR-NON AF SWISS 34 mL/min/1.73m2 Critically low >=60 [facility] Comment on above: Performed By: #### B MP ####[facility] [address] [place], [place] [address]Dr. Lisa Martinez Glucose [Mass/Vol] 161 mg/dL Critically high 74-106 [facility] Comment on above: Performed By: #### B MP ####[facility] [address] [place], [place] [address]Dr. Lisa Martinez Potassium [Moles/Vol] 4.6 mmol/L Normal 3.5-5.1 [facility] Comment on above: Performed By: #### B MP ####[facility] [address] [place], [place] [address]Dr. Lisa Martinez Sodium [Moles/Vol] 143 mmol/L Normal 136-145 [facility] Comment on above: Performed By: #### B MP ####[facility] [address] [place], [place] [address]Dr. Lisa Martinez Urea nitrogen [Mass/Vol] 35.0 mg/dL Critically high 7.0-18.0 [facility] Comment on above: Performed By: #### B MP ####[facility] [address] [place], [place] [address]Dr. Lisa Martinez Urea nitrogen/Creatinine [Mass ratio] 23.6 mg/mg Normal [facility] Comment on above: Performed By: #### B MP ####[facility] [address] [place], [place] [address]Bm. Lisa Martinez Comprehensive Metabolic Pane yesica 08-17-2021 Albumin [Mass/Vol] 4.4 g/dL Normal 3.6-5.1 [facility] Comment on above: Performed By: #### C MP #### [facility] [address] [place], [place] [id number] Albumin/Globulin [Mass ratio] 1.4 {ratio} Normal 1.0-2.5 [facility] Comment on above: Performed By: #### C MP #### [facility] [address] [place], [place] [id number] ALP [Catalytic activity/Vol] 89 U/L Normal 35-119 [facility] Comment on above: Performed By: #### C MP #### [facility] [address], [place] [id number] ALT [Catalytic activity/Vol] 13 U/L Normal 6-33 [facility] Comment on above: Result Comment: 06/08 Female reference range changed. Performed By: #### C MP #### [facility] [address] [place], [place] [id number] Anion gap [Moles/Vol] 18 mmol/L Normal 12-20 [facility] Comment on above: Result Comment: Effe ctive 07/14/2019 reference range changed. Performed By: #### C MP #### [facility] [address] [place], [place] [id number] AST [Catalytic activity/Vol] 20 U/L Normal 9-34 [facility] Comment on above: Performed By: #### C MP #### [facility] [address], [place] [id number] Bilirubin [Mass/Vol] 0.34 mg/dL Normal 0.30-1.20 [facility] Comment on above: Performed By: #### C MP #### [facility] [address], [place] [id number] BUN/CREA 28 Ratio High 6-22 [facility] Comment on above: Performed By: #### C MP #### [facility] [address] [place], [place] [id number] Calcium [Mass/Vol] 9.8 mg/dL Normal 8.6-10.2 [facility] Comment on above: Performed By: #### C MP #### [facility] [address] [place], [place] [id number] Chloride [Moles/Vol] 106 mmol/L Normal 98-107 [facility] Comment on above: Performed By: #### C MP #### [facility] [address] [place], [place] [id number] CO2 [Moles/Vol] 23 mmol/L Normal 20-31 [facility] Comment on above: Performed By: #### C MP #### [facility] [address] [place], [place] [id number] Creatinine [Mass/Vol] 1.1 mg/dL Normal 0.6-1.4 [facility] Comment on above: Performed By: #### C MP #### [facility] [address] [place], [place] [id number] eGFRAA 59 mL/min/1.73m2 Low >60 [facility] Comment on above: Performed By: #### C MP #### [facility] [address] [place], [place] [id number] eGFRNAA 49 mL/min/1.73m2 Low >60 [facility] Comment on above: Performed By: #### C MP #### [facility] [address] [place], [place] [id number] Globulin (S) [Mass/Vol] 3.2 g/dL Normal 1.9-3.7 [facility] Comment on above: Performed By: #### C MP #### [facility] [address] [place], [place] [id number] Glucose [Mass/Vol] 51 mg/dL Low 65-99 [employer] [place] [facility] Comment on above: Result Comment: For FASTING Glucose --- ADA reference ranges: Normal 65-99 mg/dl Prediabetes 100-125 Diabetes >/= 126 Performed By: #### C MP #### [facility] [address] [place], [place] [id number] Potassium [Moles/Vol] 4.5 mmol/L Normal 3.5-5.5 [facility] Comment on above: Performed By: #### C MP #### [facility] [address], [place] [id number] Protein [Mass/Vol] 7.6 g/dL Normal 6.1-8.1 [facility] Comment on above: Performed By: #### C MP #### [facility] [address] [place], [place] [id number] Sodium [Moles/Vol] 143 mmol/L Normal 135-146 [facility] Comment on above: Performed By: #### C MP #### [facility] [address], [place] [id number] Urea nitrogen [Mass/Vol] 31 mg/dL High 7-25 [facility] Comment on above: Performed By: #### C MP #### [facility] [address], [place] [id number] Complete Blood Counton 08-03 Erythrocyte distribution width (RBC) [Ratio] 13.2 % Normal 11.0-15.0 [facility] Comment on above: Performed By: #### C BC, TSH, FT3, FT4, CMP #### [facility] [address] [place], [place] [id number] Hematocrit (Bld) [Volume fraction] 36.6 % Normal 35.0-47.0 [facility] Comment on above: Performed By: #### C BC, TSH, FT3, FT4, CMP #### [facility] [address] [place], [place] [id number] Hemoglobin (Bld) [Mass/Vol] 11.4 g/dL Low 11.6-15.5 [facility] Comment on above: Performed By: #### C BC, TSH, FT3, FT4, CMP #### [facility] [address] [place], [place] [id number] MCH (RBC) [Entitic mass] 31.1 pg Normal 27.0-33.0 [facility] Comment on above: Performed By: #### C BC, TSH, FT3, FT4, CMP #### [facility] [address], [place] [id number] MCHC (RBC) [Mass/Vol] 31.1 g/dL Low 32.0-36.0 [facility] Comment on above: Performed By: #### C BC, TSH, FT3, FT4, CMP #### [facility] [address], [place] [id number] MCV (RBC) [Entitic vol] 100 fL Normal 80-100 [facility] Comment on above: Performed By: #### C BC, TSH, FT3, FT4, CMP #### [facility] [address], [place] [id number] Platelet mean volume (Bld) [Entitic vol] 10.10 fL Normal 7.50-12.50 [facility] Comment on above: Performed By: #### C BC, TSH, FT3, FT4, CMP #### [facility] [address] [place], [place] [id number] Platelets (Bld) [#/Vol] 245 10*3/uL Normal 140-400 [facility] Comment on above: Performed By: #### C BC, TSH, FT3, FT4, CMP #### [facility] [address] [place], [place] [id number] RBC (Bld) [#/Vol] 3.66 10*6/uL Low 3.90-5.20 [facility] Comment on above: Performed By: #### C BC, TSH, FT3, FT4, CMP #### [facility] [address], [place] [id number] RDW-SD 48.1 fL Normal 37.0-50.0 [facility] Comment on above: Performed By: #### C BC, TSH, FT3, FT4, CMP #### [facility] [address] [place], [place] [id number] WBC (Bld) [#/Vol] 8.7 10*3/uL Normal 3.8-11.0 [place] [facility] [place] [facility] Comment on above: Performed By: #### C BC, TSH, FT3, FT4, CMP #### [facility] [address] [place], [place] [id number] Comprehensive Metabolic Pane yesica 08-03-2021 Albumin [Mass/Vol] 3.9 g/dL Normal 3.6-5.1 [facility] [place] [facility] Comment on above: Performed By: #### C BC, TSH, FT3, FT4, CMP #### [facility] [address] [place], [place] [id number] Albumin/Globulin [Mass ratio] 1.1 {ratio} Normal 1.0-2.5 [facility] Comment on above: Performed By: #### C BC, TSH, FT3, FT4, CMP #### [facility] [address] [place], [place] [id number] ALP [Catalytic activity/Vol] 105 U/L Normal 35-119 [facility] Comment on above: Performed By: #### C BC, TSH, FT3, FT4, CMP #### [facility] [address] [place], [place] [id number] ALT [Catalytic activity/Vol] 10 U/L Normal 6-33 [facility] Comment on above: Result Comment: 06/08 Female reference range changed. Performed By: #### C BC, TSH, FT3, FT4, CMP #### [facility] [address] [place], [place] [id number] Anion gap [Moles/Vol] 20 mmol/L Normal 12-20 [facility] Comment on above: Result Comment: Effe ctive 07/14/2019 reference range changed. Performed By: #### C BC, TSH, FT3, FT4, CMP #### [facility] [address] [facility] [place] [id number] AST [Catalytic activity/Vol] 19 U/L Normal 9-34 [facility] Comment on above: Performed By: #### C BC, TSH, FT3, FT4, CMP #### [facility] [address] [place], [place] [id number] BUN/CREA 24 Ratio High 6-22 [facility] Comment on above: Performed By: #### C BC, TSH, FT3, FT4, CMP #### [facility] [address] [place], [place] [id number] Calcium [Mass/Vol] 9.6 mg/dL Normal 8.6-10.2 [facility] Comment on above: Performed By: #### C BC, TSH, FT3, FT4, CMP #### [facility] [address] [place], [place] [id number] Chloride [Moles/Vol] 106 mmol/L Normal 98-107 [facility] Comment on above: Performed By: #### C BC, TSH, FT3, FT4, CMP #### [facility] [address] [place], [place] [id number] CO2 [Moles/Vol] 21 mmol/L Normal 20-31 [facility] Comment on above: Performed By: #### C BC, TSH, FT3, FT4, CMP #### [facility] [address] [place], [place] [id number] Creatinine [Mass/Vol] 2.6 mg/dL High 0.6-1.4 [facility] Comment on above: Performed By: #### C BC, TSH, FT3, FT4, CMP #### [facility] [address] [place], [place] [id number] eGFRAA 22 mL/min/1.73m2 Low >60 [facility] Comment on above: Performed By: #### C BC, TSH, FT3, FT4, CMP #### [facility] [address] [place], [place] [id number] eGFRNAA 18 mL/min/1.73m2 Low >60 [facility] Comment on above: Performed By: #### C BC, TSH, FT3, FT4, CMP #### [facility] [address] [place], [place] [id number] Globulin (S) [Mass/Vol] 3.4 g/dL Normal 1.9-3.7 [facility] Comment on above: Performed By: #### C BC, TSH, FT3, FT4, CMP #### [facility] [address], [place] [id number] Glucose [Mass/Vol] 93 mg/dL Normal 65-99 [facility] [place] [facility] Comment on above: Result Comment: For FASTING Glucose --- ADA reference ranges: Normal 65-99 mg/dl Prediabetes 100-125 Diabetes >/= 126 Performed By: #### C BC, TSH, FT3, FT4, CMP #### [facility] [address] [place], [place] [id number] Potassium [Moles/Vol] 6.9 mmol/L Critically high 3.5-5.5 [facility] Comment on above: Result Comment: Repo rt given to Dr León (Ragini) Performed By: #### C BC, TSH, FT3, FT4, CMP #### [facility] [address] [place], [place] [id number] Protein [Mass/Vol] 7.3 g/dL Normal 6.1-8.1 [place] [facility] Comment on above: Performed By: #### C BC, TSH, FT3, FT4, CMP #### [facility] [address] [place], [place] [id number] Sodium [Moles/Vol] 139 mmol/L Normal 135-146 [facility] rn [place] [facility] [employer] Comment on above: Performed By: #### C BC, TSH, FT3, FT4, CMP #### [facility] [address] [place], [place] [id number] TBIL <0.3 Normal [facility] Comment on above: Performed By: #### C BC, TSH, FT3, FT4, CMP #### [facility] [address], [place] [id number] Urea nitrogen [Mass/Vol] 62 mg/dL High 7-25 [facility] Comment on above: Performed By: #### C BC, TSH, FT3, FT4, CMP #### [facility] [address] [place], [place] [id number] Free T3on 08-03-2021 FT3 2.05 pg/mL Normal 2.00-4.40 [facility] Comment on above: Performed By: #### C BC, TSH, FT3, FT4, CMP #### [facility] [address] [place], [place] [id number] Free T4on 08-03-2021 Free T4 [Mass/Vol] 0.91 ng/dL Normal 0.80-1.80 [facility] Comment on above: Performed By: #### C BC, TSH, FT3, FT4, CMP #### [facility] [address] [place], [place] [id number] Q - B-TYPE NATRIURETIC (BNP) on 08-03-2021 Natriuretic peptide B (Bld) [Mass/Vol] 283 pg/mL High <100 [facility] Comment on above: Order Comment: [facility] performed at: [facility], [facility], [address], [address] [place], [address], Capture Manager: Boone Calderón MD [facility] Collection Date/Time: [id number] [facility] Results Received Date/Time: [facility] Reported Date/Time: Result Comment: BNP levels increase with age in the general population with the highest values seen in individuals greater than 75 years of age. Reference: J. Am. Priya. Cardiol. 2002; 40:976-982. Performed By: #### [id number] #### [facility] Default [address] [place] [address] TSHon 08-03-2021 TSH 3.450 uIU/mL Normal 0.400-4.500 [facility] Comment on above: Performed By: #### C BC, TSH, FT3, FT4, CMP #### [facility] [address] [place], [place] [id number] COVID Quick Testingon 2020 Result Negative [employer] Other Quick Fluon 06-06-2021 FLUAV Ab CF (S) [Titer] Negative [employer] Other FLUBV Ab CF (S) [Titer] Negative [employer] Other Vital Signs Date Time Vital Sign Value Performing Clinician Facility 05-08-2024 11:16-0400 Body height 154.9 cm Jasvir León MD Work Phone: [facility] 05-08-2024 11:16-0400 Body mass index (BMI) [Ratio] 27.78 kg/m2 Jasvir León MD Work Phone: [facility] 05-08-2024 11:16-0400 Body weight 66.68 kg Jasvir León MD Work Phone: [facility] 05-08-2024 11:16-0400 Diastolic blood pressure 70 mm[Hg] Jasvir León MD Work Phone: [facility] 05-08-2024 11:16-0400 Heart rate 58 /min Jasvir León MD Work Phone: [facility] 05-08-2024 11:16-0400 SaO2% (BldA) [Mass fraction] 96 % Jasvir León MD Work Phone: [facility] 05-08-2024 11:16-0400 Systolic blood pressure 128 mm[Hg] Jasvir León MD Work Phone: [facility] 04-25-2024 16:40-0400 Body height 157.48 cm II Jasvir León Work Phone: [facility] 04-25-2024 13:31-0400 Diastolic blood pressure 69 mm[Hg] II Jasvir León Work Phone: [facility] 04-25-2024 13:31-0400 Heart rate 76 /min II Jasvir León Work Phone: [facility] 04-25-2024 13:31-0400 Systolic blood pressure 157 mm[Hg] II Jasvir León Work Phone: [facility] 04-25-2024 12:00-0400 Inhaled oxygen flow rate 3 L/min II Jasvir León Work Phone: [facility] 04-25-2024 08:00-0400 Body temperature 97.7 [degF] II Jasvir León Work Phone: [facility] 04-25-2024 08:00-0400 Respiratory rate 22 /min II Jasvir León Work Phone: [facility] 04-25-2024 08:00-0400 SaO2% (BldA) [Mass fraction] 98 % II Jasvir León Work Phone: [facility] 04-25-2024 02:25-0400 Body weight 75.2 kg II Jasvir León Work Phone: [facility] 08-07-2023 10:53-0500 Diastolic blood pressure 64 mm[Hg] Kd Hines MD Work Phone: [facility] 08-07-2023 10:53-0500 Heart rate 109 /min Kd Hines MD Work Phone: [facility] 08-07-2023 10:53-0500 Respiratory rate 18 /min Kd Hines MD Work Phone: [facility] 08-07-2023 10:53-0500 SaO2% (BldA) [Mass fraction] 90 % Kd Hines MD Work Phone: [facility] 08-07-2023 10:53-0500 Systolic blood pressure 94 mm[Hg] Kd Hines MD Work Phone: [facility] 06-06-2021 12:45-0500 Body height 157.48 cm Mariam Ward Other [employer] Other 06-06-2021 12:45-0500 Body mass index (BMI) [Ratio] 34.75 kg/m2 Mariam Lethantcarlos Other [employer] Other 06-06-2021 12:45-0500 Body temperature 96.8 [degF] Mariam Lethanty Other [employer] Other 06-06-2021 12:45-0500 Body weight 86.18 kg Mariam Lethanty Other [employer] Other 06-06-2021 12:45-0500 Diastolic blood pressure 78 mm[Hg] Mariam Sylvia Other [employer] Other 06-06-2021 12:45-0500 SaO2% (BldA) [Mass fraction] 94 % Mariam Monaentcarlos Other [employer] Other 06-06-2021 12:45-0500 Systolic blood pressure 131 mm[Hg] Mariam Lethantcarlos Other [employer] Other Encounters Encounter Date Encounter Type Care Provider Facility Start: 07-25-2024 End: 07-25-2024 ambulatory [facility] Start: 07-22-2024 End: 07-22-2024 Clinisync Result Encounter Generic External Data Provider [facility] Unsolicited Start: 07-22-2024 End: 07-22-2024 Clinisync Result Encounter Generic External Data Provider [facility] External Department Unsolicited Start: 07-11-2024 End: 07-11-2024 ambulatory [facility] Start: 06-26-2024 End: 06-27-2024 Refill Bev [...] Start: 06-11-2024 Evaluation and management of inpatient [facility] Start: 06-11-2024 Evaluation and management of inpatient [facility] Start: 06-10-2024 Evaluation and management of inpatient [facility] Start: 06-10-2024 End: 06-11-2024 Evaluation and management of inpatient [facility] Start: 06-10-2024 End: 06-10-2024 ambulatory [facility] Start: 06-02-2024 End: 06-02-2024 Clinisync Result Encounter Generic External Data Provider [facility] External Department Unsolicited Start: 06-02-2024 End: 06-02-2024 Clinisync Result Encounter Generic External Data Provider [facility] External Department Unsolicited Start: 06-02-2024 End: 06-02-2024 ambulatory [facility] Start: [facility] Start: 05-29-2024 End: 05-29-2024 ambulatory [facility] Start: 05-29-2024 End: 05-29-2024 ambulatory [facility] Start: 05-27-2024 End: 05-27-2024 ambulatory [facility] Start: 05-26-2024 End: 05-26-2024 Clinisync Result Encounter Generic External Data Provider [facility] External Department Unsolicited Start: 05-26-2024 End: 05-26-2024 Clinisync Result Encounter Generic External Data Provider [facility] External Department Unsolicited Start: 05-13-2024 End: 05-13-2024 ambulatory BR[facility] Start: 05-08-2024 End: 05-08-2024 Clementina León MD [...] of inpatient II Jasvir León Work Phone: [facility] Work Phone: Start: 03-17-2024 End: 03-17-2024 Telephone encounter Jasvir León MD Work Phone: [facility] Comment on above: covid Start: 02-18-2024 End: 02-18-2024 ambulatory JASVIR LEÓN Not Available Start: 01-07-2024 End: 01-07-2024 ambulatory [facility] Start: 12-26-2023 End: 12-26-2023 ambulatory JASVIR LEÓN Not Available Start: 12-07-2023 End: 12-07-2023 ambulatory [facility] Start: 10-09-2023 End: 10-09-2023 ambulatory SARAH RODRIGUEZ Not Available Start: 08-07-2023 End: 08-07-2023 ambulatory KD [facility] Start: 08-07-2023 End: 08-07-2023 Subsequent hospital visit by physician Kd Hines MD Work Phone: [facility] Start: 08-02-2023 End: 08-02-2023 ambulatory JASVIR LEÓN Not Available Start: 07-30-2023 End: 07-30-2023 ambulatory DAWOOD ALEXANDRE Not Available Start: 06-28-2023 End: 06-28-2023 ambulatory ODALYS RUSSO Not Available Start: 05-29-2023 End: 05-29-2023 ambulatory [facility] Start: 05-23-2023 End: 05-23-2023 ambulatory JASVIR LEÓN Not Available Start: 05-09-2023 ambulatory JASVIR LEÓN [facility] Start: 05-09-2023 End: 05-09-2023 ambulatory KD HINES [facility] Start: 12-06-2022 ambulatory BRENT ZAIDI Facility [...] Encounter for preprocedural laboratory examination GRETTA OMALLEY [facility] Start: 12-20-2021 End: 12-21-2021 ambulatory GRETTA OMALLEY Facility:[facility] Start: 12-16-2021 End: 12-17-2021 ambulatory GRETTA OMALLEY Facility:[facility] Start: 12-16-2021 End: 12-17-2021 Encounter for preprocedural laboratory examination GRETTA OMALLEY Facility:[facility] Start: 06-06-2021 End: 06-06-2021 ambulatory Mariam Ward Other [employer] Other Start: 06-06-2021 Office outpatient vi sit 15 minutes Mariam Johannay [facility] [place] Procedures Date Procedure Procedure Detail Performing Clinician Start: 07-22-2024 ALL BASIC METABOLIC PANEL Generic External Data Provider Start: 06-23-2024 ALL CBC WITH AUTO DIFF Generic External Data Provider Start: 06-02-2024 [facility] CMP (CMP) (FOR REMOTE [facility] USE) Generic External Data Provider [...] 07-30-2025 Glaucoma screening Diabetes: R etinopathy Screening [facility] Start: 11-19-2024 End: 11-19-2024 Patient encounter procedure 11/19/2024 11:00 AM EDT Office Visit [facility] [address] [place] [address] Ariel Foss MD [address] [place] [address] [facility] Start: 08-02-2024 Urine screening for protein Diabetes: Urine Protein Screening [facility] Start: 06-09-2024 End: 06-09-2024 Patient encounter procedure 06/09/2024 11:30 AM EST Office Visit [facility] [address] [place] [id number] Jasvir León MD [address] [place] [address] [facility] Start: 05-19-2024 End: 05-19-2024 Patient encounter procedure 05/19/2024 10:45 AM EST Office Visit [facility] [address] [place] [id number] Jasvir León MD [address] [facility] [address] [place] [address] [facility] Start: 05-08-2024 End: 05-08-2024 Patient encounter procedure [facility] Comment on above: Arrived Start: 04-25-2024 [facility] Start: 04-25-2024 Radionuclide myocard ial perfusion stress study NM lissy perf SPECT rest & str [facility] Start: 04-25-2024 Catheterization of l eft heart CL *Left Heart Cath (LHC) [facility] Start: 04-25-2024 Hospital admission [facility] Start: 03-27-2024 Hemoglobin A1c measurement Diabetes: Hemoglobin A1C [facility] Start: 03-09-2024 Influenza vaccination Influenza Vacc ine (#1) [facility] Start: 11-14-2023 Urine screening for protein Diabetes: Urine Protein Screening [facility] Start: 08-07-2023 End: 08-07-2023 Njx dx/ther agt pvrt facet jt lmbr/sac 1 level LUMBAR MEDIAL BRANCH BLOCK Lumbar spondylosis 08/07/2023 10:37 AM [facility] Start: 08-07-2023 End: 08-07-2023 Njx dx/ther agt pvrt facet jt lmbr/sac 2nd level LUMBAR MEDIAL BRANCH BLOCK Lumbar spondylosis 08/07/2023 10:37 AM [facility] Start: 06-04-2023 Annual Wellness Visi t (Medicare) Annual Wellness Visit (Medicare) [facility] Start: 1999 Respiratory Syncytia l Virus (RSV) or age 60 yrs+ (1 - 1-dose 60+ series) Respiratory Syncytial Virus (RSV) or age 60 yrs+ (1 - 1-dose 60+ series) [facility] Start: 1958 DTaP/Tdap/Td vaccine (1 - Tdap) DTaP/Tdap/Td vaccine (1 - Tdap) [facility] Start: 1951 Depression Screen Depression Screen [facility] Start: 1949 Lipid panel Lipids [facility] Oxygen therapy [[facility] Data Set] Initiate Oxygen Therapy Protocol Respiratory Care Routine As Needed until discontinued starting 08/07/2023 BRANDO Work Phone: Comment on above: As Needed until disc ontinued starting 08/07/2023 Patient referral [facility] Work Phone: Immunizations Immunization Date Immunization Notes Care Provider [facility] 04-12-2024 pneumococcal polysaccharide vaccine, 23 valent Generic Provider [facility] 04-12-2024 Seasonal trivalent influenza vaccine, adjuvanted, preservative free Generic Provider [facility] 09-11-2023 zoster vaccine recombinant Jasvir León MD Work Phone: [facility] 06-06-2023 zoster vaccine recombinant Jasvir León MD Work Phone: [facility] 05-21-2023 Pfizer Coleman Cap SARS-CoV-2 Vaccination Jasvir León MD Work Phone: [facility] Work Phone: 05-13-2023 Influenza, Seasonal, Quadrivalent, Adjuvanted Jasvir León MD Work Phone: [facility] 05-13-2023 influenza virus vaccine, unspecified formulation Jasvir León MD Work Phone: [facility] 05-16-2021 SARS-CoV-2, Unspecified Lexa León MD Work Phone: [facility] 04-29-2021 influenza, high dose seasonal, preservative-free Jasvir León MD Work Phone: [facility] 04-29-2021 Influenza, Seasonal, Quadrivalent, Adjuvanted Jasvir León MD Work Phone: [facility] 08-29-2020 SARS-CoV-2, Unspecified Lexa León MD Work Phone: [facility] 07-31-2020 SARS-CoV-2, Unspecified Lexa León MD Work Phone: [facility] 03-22-2020 influenza, injectabl e, quadrivalent, preservative free Jasvir León MD Work Phone: [facility] 06-12-2019 zoster vaccine recombinant Jasvir León MD Work Phone: [facility] 03-20-2019 Seasonal trivalent influenza vaccine, adjuvanted, preservative free Jasvir León MD Work Phone: [facility] 03-20-2019 zoster vaccine recombinant Jasvir León MD Work Phone: [facility] 04-22-2018 influenza, high dose seasonal, preservative-free Jasvir León MD Work Phone: [facility] 03-29-2017 influenza, high dose seasonal, preservative-free Jasvir León MD Work Phone: [facility] 08-26-2016 pneumococcal conjuga te vaccine, 13 valent Jasvir León MD Work Phone: [facility] 03-30-2016 influenza, injectabl e, quadrivalent, contains preservative Jasvir León MD Work Phone: [facility] 03-30-2016 influenza, injectabl e, quadrivalent, preservative free Jasvir León MD Work Phone: [facility] 03-25-2015 pneumococcal polysaccharide vaccine, 23 valent Jasvir León MD Work Phone: [facility] 03-25-2015 seasonal influenza, intradermal, preservative free Jasvir León MD Work Phone: [facility] 04-02-2014 seasonal influenza, intradermal, preservative free Jasvir León MD Work Phone: [facility] 03-31-2014 tetanus and diphther ia toxoids, adsorbed, preservative free, for adult use (5 Lf of tetanus toxoid and 2 Lf of diphtheria toxoid) JEWELL León Work Phone: [facility] 03-31-2014 tetanus toxoid, redu seymour diphtheria toxoid, and acellular pertussis vaccine, adsorbed Mariam Ginty Other [employer] Other 09-01-2013 tetanus and diphther ia toxoids, adsorbed, preservative free, for adult use (5 Lf of tetanus toxoid and 2 Lf of diphtheria toxoid) II Jasvir León Work Phone: [facility] 09-01-2013 tetanus toxoid, redu syemour diphtheria toxoid, and acellular pertussis vaccine, adsorbed Mariam Ward Other [employer] Other 03-25-2012 zoster vaccine, live Jasvir León MD Work Phone: [facility] 04-26-2010 pneumococcal polysaccharide vaccine, 23 valent Jasvir León MD Work Phone: [facility] Payers Date Payer Category Payer Self-pay 2022 [employer] others) [id number] 2016 [employer]) [id number] 2016 [employer] ( [employer] others) FOR LIFE [id number] 2016-Present [address] [place] [address] [id number] 2016 () [id number] .[id number] 2016 [employer] ( [employer] others) [id number] 2004 Medicare [id number] 1959 [employer] ( and others) [id number] 1959 Medicare [id number] 1939 Unknown [id number] 2.16.840.1.535629.3.579.2 .647 1939 Unknown [id number] 2.16.840.1.847266.3.579.2 .593 1939 Unknown [id number] 2.16.840.1.823852.3.579.2 .593 1939 Unknown [id number] 2.16.840.1.374533.3.579.2 .593 1939 Unknown [id number] 2.16.840.1.550097.3.579.2 .593 1939 Unknown [id number] 2.16.840.1.755530.3.579.2 .593 1939 Unknown [id number] 2.16.840.1.488436.3.579.2 .593 1939 Unknown [id number] 2.16.840.1.848685.3.579.2 .593 1939 Unknown [id number] 2.16.840.1.368674.3.579.2 .593 1939 Unknown [id number] 2.16.840.1.404025.3.579.2 .593 1939 Unknown [id number] 2.16.840.1.707992.3.579.2 .593 1939 Unknown [id number] 2.16.840.1.180412.3.579.2 .593 1939 Unknown [id number] 2.16.840.1.317473.3.579.2 .593 1939 Unknown [id number] 2.16.840.1.438713.3.579.2 .593 1939 Unknown [id number] 2.16.840.1.750350.3.579.2 .593 1939 Unknown [id number] 2.16.840.1.200787.3.579.2 .754 1939 Unknown [id number] 2.16.840.1.494306.3.579.2 .754 1939 Unknown [id number] 2.16.840.1.881333.3.579.2 .754 1939 Unknown [id number] 2.16.840.1.723700.3.579.2 .754 1939 Unknown [id number] 2.16.840.1.667632.3.579.2 .1259 1939 Unknown [id number] 2.16.840.1.984774.3.579.2 .125 1939 Unknown [id number] 2.16.840.1.053507.3.579.2 .1259 1939 Unknown [id number] 2.16.840.1.543764.3.579.2 .9 1939 Unknown [id number] 2.16.840.1.664318.3.579.2 .1259 1939 Unknown [id number] 2.16.840.1.299401.3.579.2 .1259 1939 Unknown [id number] 2.16.840.1.313794.3.579.2 .1259 1939 Unknown [id number] 2.16.840.1.801730.3.579.2 .1259 Medicare [id number] 2.16.840.1.252322.19 Unknown [id number] 2.16.840.1.388657.3.579.2 .531 Social History Date Type Detail Facility Start: 05-30-2023 End: 07-10-2024 [facility] Start: 12-11-2022 End: 05-08-2023 Tobacco smoking status LAIS Ex-smoker [employer] Phone: End: 07-09-1996 History of tobacco use Current smoker [employer] Phone: End: 07-09-1996 History of tobacco use Cigarette Smoker [employer] Phone: Start: 12-11-2022 End: 05-08-2023 Tobacco use and exposure Smokeless tobacco non-user [employer] Phone: Start: 05-30-2023 Alcohol intake Ex-drinker (finding) [employer] Phone: Start: 05-30-2023 End: 07-10-2024 History of Social function [employer] Phone: Start: 05-08-2023 Alcohol Comment social [employer] Phone: Start: 1940 Sex Assigned At Not on file [facility] ([employer] Work Phone: Start: 1940 Sex Assigned At Female F [facility] Start: 04-28-2024 End: 06-11-2024 Alcoholic beverage intake [...] Equipment Identifier Dates Kyphon [employer] [id number]_[facility] Start: 05-09-2023 Comment on above: Description: T12 Ref# [id number] by In Vitro route [id number] 1 each by Other route in the morning and 1 each in the evening and 1 each before bedtime. Use as instructed. [id number] Start: 06-29-2023 End: 06-28-2024 Goals Date Patient Goal Desired Activity /State Clinical Notes 06-06-2021 to 07-25-2024 Jasvir León MD - 05/08/2024 11:15 AM EDTTelephone Encounter - ZOEY An - 04/29/2024 4:55 PM EDTTelephone Encounter - ZOEY An - 04/29/2024 4:55 PM EDT Note Date & Type Note Facility 07-25-2024 Note [place] [facility] - [facility] Subjective Jenni Quinones is a [...] SOB is worsening. 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 [facility] 06-11-2024 Note Surgical Intensive C are [...] She has history of prior admissions to [facility] with AF/RVR and diastolic heart failure [...] Interval 434 ms QTC CALCULATION(BAZETT) 447 ms R-[place] -19 degrees T Wave [place] 148 degrees POCT glucose meter Collection Time: [...] 106 QT Interval 434 QTC CALCULATION(BAZETT) 447 R-[place] -19 T Wave [place] 148 Impression Atrial fibrillation Moderate voltage criteria [...] Problem List: - (more content not included)... [facility] 06-11-2024 Note Cardiothoracic Surge ry Post Operative Progress Note 06/11/2024 Room: [facility]8/222- Post Op Day: 1 Day Post-Op Subjective [...] aortic valve replacement. 06/10 s/p Underwent Successful qnguj-wf-rsvmv transcatheter aortic valve replacement using a 23 [...] Aortic stenosis, severe 84y.o. F POD #1 bwyoi-jz-rgxfs transcatheter aortic valve replacement using a 23 [...] Cardiothoracic Surgery Inpatient from 8am-4pm call Ascom #[phone]. Only use epic chat for general questions. If unable to reach Ascom Number call hospital chair post 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 for Cardiothoracic Provider Sales Service Rep. Cardiothoracic Surgery outpatient Office Number [phone]. Cardiothoracic Surgery outpatient . .att As the [...] with them. Craig Braun MD CT Surgery [facility] 06-11-2024 Note Cardiothoracic Surge ry Progress Note 06/11/2024 Room: [address] [place] [address] Jenni Quinones is a 84 y.o. 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 She was evaluated in Cardiology and Cardiothoracic Surgery Clinics, and was deemed appropriate for TAVR as treatment for her aortic valve stenosis given high surgical risk for a redo aortic valve replacement. 06/10 s/p Underwent Successful tcvuw-un-pxthv transcatheter aortic valve replacement using a 23 [...] Value Date WBC (more content not included)... [facility] 06-10-2024 Note Pharmacy Dosing Serv ice - Vancomycin Initial Consult Note Pharmacy has been consulted for the dosing and evaluation of Drug: Vancomycin Indication: Surgical Prophylaxis x 24 hours post op Other Antimicrobial Regimens: none Labs and Renal Function Total body weight: 62.6 kg (138 lb) [place] body weight: 50.1 kg (110 lb 7.2 [...] for infection, please re-consult and we will twhc-ma-qnwuyg. -Please do not hesitate to contact us with comments or questions Thank you, Isamar Chavez, PharmD, 06/10/24 [facility] 06-10-2024 Note Craig Braun MD 06/10/2024 [...] access for the TAVR procedure. PROCEDURES: Successful wjist-fh-rcdog transcatheter aortic valve replacement using a 23 mm Zarate Shahram 3 Ultra valve deployed at nominal volume via percutaneous transfemoral access. Placement of a temporary pacemaker wire. Left heart catheterization. Access into the left subclavian artery, left radial artery, left common femoral artery and vein under ultrasound guidance. Left axillary artery angiogram. Preclosure in the left axillary artery using two 6-[place] Citizen ProGlide devices. Balloon aortic valvuloplasty. OPERATORS: Interventional Cardiology Lumber Chain Offbearer: Josefina Nova MD Cardiac Surgery Lumber Chain Offbearer: Craig Braun MD Graphic Design Specialist Interventional Cardiology Lumber Chain Offbearer: Ángel Lim MD METHODS: Procedure was explained to the patient with risks and benefits. she signed informed consent. she was brought to laborer stores in a fasting state. The procedure was performed in the cardiac laborer stores under conscious sedation. The left groin area, the left wrist area, and the left shoulder area were prepped and draped in usual fashion. Micropuncture technique and ultrasound guidance were used for access in the left common femoral artery and inner cannula angiography was performed followed by upsizing to a 6-V[place] Citizen x 11 cm sheath. The same was done for the access in the left common femoral vein. Ultrasound guidance was used for micropuncture access in the left radial artery and a 4-[place] Citizen x 11 cm introducer sheath was secured [...] cannular angiography followed by upsizing to a 6-[place] Citizen x 11 cm sheath. At this time, we proceeded with the preclosure in the left axillary artery using 2 crossing Perclose devices and the access was then upsized over a wire to a 10-[place] Citizen sheath. A 5-[place] Citizen balloon-tipped pacemaker wire was advanced through the left common femoral vein sheath to the right ventricular apex and adequate capture was confirmed. Heparin was given intravenously and therapeutic ACT confirmed during the rest of the procedure and additional heparin given as needed. A 6 [place] Citizen JL 3.5 guiding catheter was advanced through the left common femoral arterial sheath and used to engage the left coronary artery. Angiography was performed. A Prowater wire was advanced into the distal LAD. This was placed for protection of the left main given moderate risk for coronary obstruction. A 6-[place] Citizen AR1 diagnostic catheter was advanced via the axillary sheath, and using a straight stiff Glidewire, the aortic valve was crossed and the catheter was advanced in the left ventricular cavity, and using an exchange length J-wire, a 6-[place] Citizen angled pigtail catheter was advanced to make [...] length amplatz extra stiff wire to the 14-[place] Citizen Zarate E-sheath. The sheath was secured in place. Based on the prior CT scan measurements and the smzyr-hs-lyhzr erika, we proceeded with a Zarate Shahram [...] valve was exchanged (more content not included)... [facility] 06-10-2024 Note Patient: Jenni Liao se Procedure Information Date/Time: 06/10/24 1130 Procedure: TAVR - PC APPROVED Location: [facility] / [facility] (Cath) Providers: Josefina Nova MD Clinical information reviewed: Allergies Meds OB Status Physical Exam Airway Mallampati: III TM distance: >3 FB Neck ROM: full Cardiovascular Rhythm: regular Rate: normal Dental Pulmonary Breath sounds clear to auscultation Abdominal Anesthesia Plan ASA 3 other (Conscious sedation.) Anesthetic plan and risks discussed with patient. Use of blood products discussed with patient who consented to blood products. 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 [facility] 05-29-2024 Note Cardiothoracic Surge ry Outpatient [...] and Other Diagnostic Testing. Findings discussed with improvement coordinator and patient. Explained current disease process and [...] (PriLOSEC) 40 m (more content not included)... [facility] 05-27-2024 Note Patient: Jenni Liao se Procedure Information Date/Time: 05/27/24 1000 Procedures: Right heart cath Coronary angiography Location: [facility] / [facility] (Cath) Providers: Josefina Nova MD [...] consented to blood products. Additional Equipment Requests [facility] 05-27-2024 Note Patient: Jenni Liao se Procedure Information Date/Time: 05/27/24 0830 Procedure: TRANSESOPHAGEAL ECHO (FARA) Location: [facility] Vascular Lab [...] Plan discussed with attending. Additional Equipment Requests [facility] 05-27-2024 Note Report given to Torey turner RN. RN verbalized how FARA went and medications given during the procedure. [facility] 05-13-2024 Note Cardiovascular Medic [facility] SUBJECTIVE Chief Complaint Patient presents with [...] c/o chest pain. She was transferred to [facility] for further cardiac care. 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 [facility] 05-13-2024 Note Patient here for 3 m o follow up aortic/mitral valve stenosis, diastolic heart failure, and permanent afib. She was admitted to [facility] a few weeks ago for chest pain. [...] All other systems reviewed and are negative. [facility] 05-08-2024 History of Present illness Narrative Images from the original note were not included. HPI Follow-up Additional comments: [facility] stay 04/11/24-04/13/24 after fall at home with rib fractures discharged to [facility] 04/24/24-04/25/24 dx: CP Discharged home from [place] 04/30/24 Shortness of Breath Additional comments: Had echo yesterday ordered by cardiology has appt with cardiology next week Using 02 continuously Med Refill Additional comments: Hydrocodone--DM mio Last edited by Bev Mejia LPN on 05/08/2024 11:24 AM. Subjective Patient ID: Jenni Quinones is a 84 y.o. female who presents for Follow-up ([facility] stay 04/11/24-04/13/24 after fall at home with rib fractures discharged [facility] 04/24/24-04/25/24 dx: CP/Discharged home from [place] 04/30/24), Shortness of Breath (Had echo yesterday ordered by cardiology has appt with cardiology next week/Using 02 continuously ), and Med Refill (Hydrocodone--DM mio). Flowsheet Row Patient Outreach from 04/30/2024 in [facility] with Monica Ross LPN Hospital Information ED, Hospital or Prison Facility Discharge? Prison Facility Discharged To: Home Setting Engagement Medications [...] Management What is the home health agency? [facility] N[facility]SE/PT/OT Has home health visited [...] muscle spasms. 30 tablet 3 [DISCONTINUED] HYDROcodone-acetaminophen (Cloudcroft) 5-325 MG tablet Take 1 tablet by [...] History: Diagnosis Date Abnormal echocardiogram 09/06/2020 Asthma ([facility]/HCC) Atrial flutter ([facility]/HCC) CHF (congestive heart failure) ([facility]) Diabetes ([facility]) Diverticulosis Enthesopathy of left foot 02/2016 Enthesopathic spurring of calcaneous of left foot per xray Feb 2016 History of being hospitalized 04/25/2024 Chest Pain, ECG Changes HTN (hypertension) ([facility]) Hyperlipidemia ([facility]) Routine general medical examination at health [...] 08/07/2023 L3-L5 LUMBAR EPIDURAL INJECTION 05/29/2023 L4-L5 MT ARTHROSCOPY KNEE DIAGNOSTIC W/WO SYNOVIAL BX SPX Left MT INTUBATION ENDOTRACHEAL EMERGENCY PROCEDURE 08/18/2018 MT MEDICATION MANAGEMENT Aortic insufficiency RIGHT HEART CATHETERIZATION [...] Spinal stenosis at L4-L5 level - HYDROcodone-acetaminophen (Cloudcroft) 5-325 MG tablet; Take 1 tablet by mouth every 4 (four) hours if needed for severe pain for up to 10 days Follow up in about 4 weeks (around 06/05/2024) for Routine F/U. documented in this encounter [facility] 04-29-2024 Telephone encounter Note [facility] requesting clarification on dispense amount for insulin. Resent with correct amount to dispense. [facility] 04-29-2024 Miscellaneous Notes Drug Ladd requesting clarification on dispense amount for insulin. Resent with correct amount to dispense. documented in this encounter [facility] 04-25-2024 Consult note Note Date/Time April 25, 2024 12:10pm [facility] [address] [place] [address] Cardiology Consult Note Signed with Addenda Patient: Jenni Quinones MR#: [id number] : 1940 Acct:[id number] Age/Sex: 84 / F Adm Date: 4 Loc: Room: [address] [place] [address] Type: ADM IN Attending Dr: Javan Gruber [...] the hospitalist and ER nurse practitioner at [facility] after discussion last night. Patient was transferred here under my direction for further assessment and management. She was watching the [employer] baseball game, became very excited and experienced retrosternal chest discomfort that abated after arrival to the emergency room after being directed by her family togo to the ER for her discomfort. Initial ECGs revealed atrial fibrillation withnonspecific ST changes, initial troponin was negative. Patient has a history of chronic atrial fibrillation, aortic valve replacement in [place], followed by Dr. Nova. She has previous [...] be discharged to follow-up with her primary improvement coordinator. [facility] Medical History (Updated 04/25/24 @ 04:15 by [...] Lymph # (Auto) 0.7 L (1.00-4.8) x10E3/uL Bee # (Auto) 0.8 (0.0-0.8) x10E3/uL Eos # [...] <Electronically signed by Ingrid Haynes DO> 04/25/[address] [facility] Work Phone: 1(761) 299-803510-18-2024 History and physical note Author Lalo Carter [facility] April 25, 2024 4:19am Note Date/Time April 25, 2024 4 :10am [facility] [address] [place] [address] Hospitalist H&P Signed Patient: Jenni Quinones MR#: [id number] : 1940 Acct:[id number] Age/Sex: 84 / F Adm Date: 4 Loc: Room: [address] [place] [address] Type: ADM IN Attending Dr: Lalo Carter DO Copies to: MD Lalo Padilla II, ~ HPI DATE OF EXAMINATION: 04/25/24 CHIEF COMPLAINT: Chest pain with radiation to the jaw and shortness of breath and EKG change HISTORY OF PRESENT ILLNESS: This is an 84-year-old woman who presented to the [facility] emergency room. The ER over there had gotten a hold of cardiology on-call with Dr. Haynes regarding EKG changes especially in aVL with inferior depression pattern and so it was recommended that the patient be transferred here to [facility] for cardiology evaluation. The patient is currently in a long term facility working with physical therapy and getting [...] of this lasted 20 minutes. At the [facility] emergency room a chest x-ray showed what [...] cardiology with Dr. Josefina Nova from the [facility], to [place]. 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 She has been told that there is something just not quite right about that aortic valve, but she cannot explain what the improvement coordinator were looking at. When I asked her if she got cardiac catheterization and planning for the aortic valve replacement the patient does not recall getting this. Review of Systems Review of Systems Review of systems: 10 systems are reviewed and are negative except as mentioned elsewhere in the documentation. [facility] Medical History (Updated 04/25/24 @ 04:15 by [...] diabetes mellitus: Plan Assessment: Presentation to the [facility] with chest pain with radiation to the [...] a fall on April 11 at a long term facility in [place]. Plan: Hospital admission, inpatient status. N.p.o. for [...] signed by Lalo Carter DO> 04/25/24 0419 [facility] Work Phone: 1(176) 556-950309-09-2024 Telephone encounter Note* Telephone Encounter - Jasvir León MD - 03/17/2024 1:33 PM EDT Rx was [facility] in. [id number] Miscellaneous Notes* Telephone Encounter - Jasvir León MD - 03/17/2024 1:33 PM EDT Rx was sent in. * Telephone Encounter - Bev Mejia LPN - 03/17/2024 1:11 PM EDT Pt called tested positive for covid has sorethroat,headache,cough,fatigue she wasn't sure if she needed to get paxlovid or just let it run its course--symptoms started last night documented in this encounter[facility] [id number] Telephone encounter Note* Telephone Encounter - Bev Mejai LPN - 03/17/2024 1:11 PM EDT Pt called tested positive for covid has sorethroat,headache,cough,fatigue she wasn't sure if she needed to get paxlovid or just let it run its course--symptoms started last night [facility] [id number] NoteUT Cardiology - [facility] Subjective Jenni Quinones is a 83 [...] iron deficiency Heart valve transplanted Hyperthyroidism 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 RTC with Dr Nova D/W pt about red flag symptoms to call 911 and/or office- increased SOB, Palpitations, syncope, chest pain or any concerns and she voiced understanding Continue all medications as prescribedUnLake County [facility] 12-07-2023 NoteRepeat TTE in 6 months Pt denied any worsening symptoms since DC from [facility] and diuresisUnLake County [facility]05-31-2024 NoteStable, will monitor with routine echocardiogram in 6 monthsUnLake [facility]05-31-2024 NoteUTP CARDIOLOGY PROGRESS NOTE HPI: Jenni Quinones is a 83 y.o. female here for routine f/U and review of TTE and ED f/U Patient here for 6 mo follow up aortic and mitral valve stenosis, diastolic heart failure, and permanent afib. She had an echo last month. She presented to [facility] ED a few weeks ago for [...] She has history of prior admissions to [facility] with AF/RVR and diastolic heart failure decompensation. She has normal coronary angiogram in 2016. Patient here for 6 mo follow up aortic and mitral valve stenosis, diastolic heart failure, and permanent afib. She had an echo last month. She presented to [facility] ED a few weeks ago for [...] initiated. Patient agrees this plan. Emergency Department [facility] 5 Patient name: JENNI QUINONES Laboratory [...] has new requirement of 2L O2 by ME. Case discussed with hospitalist who agreed to [...] She has history of prior admissions to [facility] with AF/RVR and diastolic heart failure [...] flows across the biop (more content not included)...[facility]05-31-2024 NotePatient here for 6 mo follow up aortic and mitral valve stenosis, diastolic heart failure, and permanent afib. She had an echo last month. She presented to [facility] ED a few weeks ago for [...] weakness. All other systems reviewed and are negative.[facility] 12-07-2023 NoteContinue to monitor AO valve with repeat TTE in 6 months [facility]01-30-2024 History of Present illness Narrative* Carole Loyola LPN - 08/07/2023 10:57 AM EST Pt alert and oriented. Denies pain at this time. Dressings at injection site clean and dry. Discharge instructions reviewed, no questions or concerns voiced. documented in this encounterWYANDOT Work Phone: [phone] Hospital Discharge instructions* Discharge Instructions* Carole Loyola [...] vomiting - Difficulty breathing or swallowing CALL [phone] Other Instructions: - You should have a follow-up appointment scheduled already or a follow-up plan in place prior to leaving. - Call the office if you develop any problems or have any questions at: [facility] [phone] or Our 24 hour help line is also available: [phone] ([phone]) If you need refills,or have questions / concerns, outside of our office hours Sunday 8:00 a.m - 4:30 p.m. at [facility], please call [phone] to speak to Constance STEINER or leave a voicemail for her. *Remember to allow at least 48 business hours for medication refill requests. documented in this encounterWYANDOT Work Phone: 1(716) 335-804212-01-2022 NoteHISTORY AND PHYSICAL EXAMINATION Date:06/07/2022 HISTORY: The [...] and go forward with her elective procedure.[facility] [id number] NoteOPERATIVE NOTE OPERATION DATE: 06/08/2022 SURGEON: Dawood [...] ensuring mobility, phacoemulsification was performed in a mbqdjjt-qlg-iegwju-type fashion. After all nuclear material had been [...] up the following day for postoperative care.[facility] [id number] NoteOPERATIVE NOTE OPERATION DATE: 04/13/2022 SURGEON: Dawood [...] ensuring mobility, phacoemulsification was performed in a sawpavi-xth-hdowfv-type fashion. After all nuclear material had been [...] up the following day for postoperative care.[facility] [id number] NoteHISTORY AND PHYSICAL EXAMINATION Date:04/12/2022 HISTORY: The [...] and go forward with her elective procedure.[facility] [id number] Evaluation note* Encounter Date Diagnosis Assessment Notes [...] Patient care instructions given in writting by [facility] Care At Home document [employer] Other Evaluation note* Diagnosis Lumbar spondylosis- Primary Lumbosacral spondylosis without myelopathy documented in this encounter [facility] Work Phone: evaluation note* Diagnosis Onset Date Resolution Status Acute electrocardiogram changes acute Chest pain acute Fracture of rib of left side acute GERD (gastroesophageal reflux disease) acute Hypertension acute Type 2 diabetes mellitus acu [facility] Work Phone: Evaluation note* Diagnosis Diabetes mellitus with peripheral vascular disease (CMS/HCC) documented in this encounter [facility]* Diagnosis Closed fracture of multiple ribs of right side with routine healing, subsequent encounter- Primary Nonrheumatic aortic valve stenosis Spinal stenosis at L4-L5 level documented in this encounter [facility] HealthcareEvaluation note* Diagnosis Depression with anxiety Dysthymic disorder Anxiety Anxiety state, unspecified documented in this encounter [facility] HealthcareEvaluation note* Diagnosis COVID- Primary documented in this encounter [facility] HealthcareEvaluation note* Diagnosis Spinal stenosis at L4-L5 [...] see above list Hospitalization History chf x3 [employer] Other Hospital Discharge instructions Additional Instructions [facility] facility to manage care: DNR [facility] no intubation PT/OT to eval and treat Routine vital signs Maintain high risk falls precautions Monitor cardio assessment -- angina Care to be managed by SNF provider [facility] Work Phone: Summary Purpose Family [...] section and content) DATE CREATED AUTHOR 08/19/2021 [facility] dical Specialist DATE CREATED AUTHOR AUTHOR'S ORGANIZ ATION 12/26/2021 [facility] DATE CREATED AUTHOR AUTHOR'S ORGANIZ ATION 12/15/2022 [facility] DATE CREATED AUTHOR AUTHOR'S ORGANIZ ATION 05/18/2023 [facility] DATE CREATED AUTHOR AUTHOR'S ORGANIZ ATION 08/08/2023 [facility] DATE CREATED AUTHOR AUTHOR'S ORGANIZ ATION 05/03/2024 [facility] DATE CREATED AUTHOR AUTHOR'S ORGANIZ ATION 05/10/2024 [facility]ists EPIC DATE CREATED AUTHOR AUTHOR'S ORGANIZ ATION 07/28/2024 [facility] REASON FOR VISIT (unrecogniz ed section and content) Specialty Diagnoses / Procedures Referred By Williams t Referred To Contact Diagnoses Lumbar spondylosis Lumbar spondylosis [M47.816] Procedures MT NJX DX/THER AGT PVRT FACET JT LMBR/SAC 1 LEVEL MT NJX DX/THER AGT PVRT FACET JT LMBR/SAC 2ND LEVEL B/L LUMBAR MEDIAL BRANCH BLOCK L3 L4 L5 B/L LUMBAR MEDIAL BRANCH BLOCK L3 L4 L5 Kd Hines MD [address] [place] [address] [facility] Phone: [phone] Referral ID Status Reason Start Date Expiration Date Visits Re quested Visits Authorized [id number] 1 1 Reason Comments Follow-up [facility] stay 04/11/24-04/13/24 after fall at home with rib fractures discharged to [facility] 04/24/24-04/25/24 dx: CPDischarged home from [place] 04/30/24 Shortness of Breath Had echo yesterday [...] Intra-op 0957 (Given - Provid er: Kd iHnes MD - Comment: Dose amount per Dr. Hinse) lidocaine 1% (buffered) injection (CANCELED) PRN, Starting on Sun08/07/23 at 0957, Until Sun08/07/23 at 1048, Intra-op 0957 (Given - Provid er: Kd Hines MD - Comment: Dose amount per Dr. Hines) Care Teams (unrecognized sec tion and content) Mechanical Research Engineer Relationship Specialty Start Date End Date Jasvir León MD [address] [facility] [address] [place] [address] PCP - General Internal Medicine 05/07/23 Team [...] April 25, 2024 End: April 25, 2024 Mechanical Research Engineer Relationship Specialty Start Date End Date Jasvir León MD [address] [facility] [address] [place] [address] PCP - General Internal Medicine 11/20/22 Jasvir León MD [address] [facility] [address] [place] [address] PCP - ACO Reach 11/30/22 Mechanical Research Engineer Relationship Specialty Start Date End Date Jasvir León MD [address] [facility] [address] [place] [address] PCP - General Internal Medicine 11/20/22 Jasvir León MD [address] [facility] [address] [place] [address] PCP - ACO Reach 11/30/22 Mechanical Research Engineer Relationship Specialty Start Date End Date Jasvir León MD [address] [facility] [address] [place] [address] PCP - General Internal Medicine 11/20/22 Jasvir León MD [address] [facility] [address] [place] [address] PCP - ACO Reach 11/30/22 Mechanical Research Engineer Relationship Specialty Start Date End Date Jasvir León MD [address] [facility] [address] [place] [address] PCP - General Internal Medicine 11/20/22 Jasvir León MD [address] [facility] [address] [place] [address] PCP - ACO Reach 11/30/22 Mechanical Research Engineer Relationship Specialty Start Date End Date Jasvir León MD [address] [facility] [address] [place] [address] PCP - General Internal Medicine 11/20/22 Jasvir León MD [address] [facility] [address] [place] [address] PCP - ACO Reach 11/30/22 Mechanical Research Engineer Relationship Specialty Start Date End Date Jasvir León MD [address] [facility] [address] [place] [address] PCP - General Internal Medicine 11/20/22 Jasvir León MD [address] [facility] [address] [place] [address] PCP - ACO Reach 11/30/22 Mechanical Research Engineer Relationship Specialty Start Date End Date Jasvir León MD [address] [facility] [address] [place] [address] PCP - General Internal Medicine 11/20/22 Jasvir León MD [address] [facility] [address] [place] [address] PCP - ACO Reach 11/30/22 Mechanical Research Engineer Relationship Specialty Start Date End Date Jasvir León MD [address] [facility] [address] [place] [address] PCP - General Internal Medicine 11/20/22 Jasvir León MD [address] [facility] [address] [place] [address] PCP - ACO Reach 11/30/22 Mechanical Research Engineer Relationship Specialty Start Date End Date Jasvir León MD [address] [facility] [address] [place] [address] PCP - General Internal Medicine 11/20/22 Jasvir León MD [address] [facility] [address] [place] [address] PCP - ACO Reach 11/30/22 Leora Pollard, [...] BE BASED ON THE PRIMARY CLINICAL RECORDS. [facility] [employer] [facility]. provides no warranty or guarantee of the accuracy or completeness of information in this document.
[2024-08-15] MEDS: 0.9 % SODIUM CHLORIDE 1,000 ML 100 ML IV ×2 (01:05→10:01)
[2024-08-15 01:43] LABS: Digoxin 0.5 ng/mL (0.9-2.0)
--- OUTSIDE RECORDS SUMMARY | 2024-08-15 06:07 | XMS_ITS | CCD ---
Author Organization [facility] Care Team Providers Care Cloth Bleaching Supervisor Name Role Phone GRETTA OMALLEY Admitting Unavailable [...] Care Unavailable BAHKD Judd Attending Unavailable JASVIR LENÓ Primary Care Unavailable JAYLAN HINEST M Admitting Unavailable JEWELL León Primary Care Provider [phone] DO Lalo Carter Admit Provider MD Javan [...] LEÓN Attending Unavailable Latrice MALIK, Leora Unavailable [phone] DEON, HOMA Referring Unavailable CHAVARRIA, HOMA Referring [...] Translations: [CODEINE] Drug Allergy [address] [facility] Repository (5 sources) Penicillins; Translations: [PENICILLINS] Drug allergy (disorder) 2 rash [facility] Repository (1 source) penicillian Propensity to adverse reactions rash [employer] Other (1 source) codiene Propensity to adverse reactions abdominal pain [employer] Other (2 sources) sacubitril / valsartan Drug Allergy 2 [facility] Repository (12 sources) Codeine Drug Allergy 3 Other (See Comments) [facility] (1 source) Penicillins Propensity to adverse reactions to drug 3 Sita MICHAELS Work Phone: (13 sources) sacubitril / valsartan; Translations: [SACUBITRIL-ARJUN SARTAN] Drug Allergy 2 Sita MICHAELS (11 sources) Penicillin G Drug Allergy 3 Rash, Other [facility] (1 source) Codeine Drug Allergy 4 [facility] Repository (1 source) Penicillins Drug allergy (disorder) 4 [facility] Repository Medications Current Medications Medication Drug [...] mouth every four hours for pain HYDROcodone-acetaminophen (Ridgeway) 5-325 MG tablet Indications: Spinal stenosis at L4-L5 level Take 1 tablet by mouth every 4 (four) hours if needed for severe pain for up to 10 days 60 tablet 06/27/2024 07/07/2024 Active Start: 05-08-2024 End: 05-18-2024 take 1 tablet by mouth every four hours for pain HYDROcodone-acetaminophen (Ridgeway) 5-325 MG tablet Indications: Spinal stenosis at [...] tablet 1 11/02/2023 11/01/2024 Active Continuous Glucose Toolmaker (FreeStyle Marguerite 2 [place]wood) device (1 source) Continuous Gluco se Toolmaker (FreeStyle Marguerite 2 [place]wood) device 1 Device Active Continuous Glucose Sensor [...] 11-21-2022 11-21-2022 Chronic Other aftercare (1 source) custodial (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 of insulin; Translations: [SKILLED NURSING CURRENT USE OF INSULIN] Onset: 11-21-2022 Episodic Other aftercare (1 source) custodial (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 of aspirin; Translations: [SKILLED NURSING CURRENT USE OF ASPIRIN] Onset: 11-21-2022 Episodic Other aftercare (1 source) Other [facility] (current[facility] drug therapy; Translations: [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 THERAPY] Onset: 11-21-2022 Episodic Other [...] sources) Long-term current use of anticoagulant; Translations: [custodial (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 of anticoagulants] Onset: 8 04-10-2023 [...] Interpretation Reference Range Facility Follow-Upon 07-25-2024 Follow-Up [id number] Jenni Quinones 1940 F Date Provider Department Center 07/25/2024 JOSEFINA STEIN Family History Problem Relation Age of Onset Diabetes Father Heart failure Father Other Other Family Status - Relation Status Age at Father Other Level of Service:08519 [place] OFFICE/OUTPATIENT ESTABLISHED MOD MDM 30 MIN Normal [facility] ALL BASIC METABOLIC PANELon 07-22-2024 [...] rate/Area] 36 Low >=60 mL/min/1.73 m 2 [facility] Glucose [Mass/Vol] 190 mg/dL High 74 - 106 mg/dL [facility] Interpretation and review of laboratory results Abnormal [facility] Potassium [Moles/Vol] 4.1 mmol/L 3.5 - 5.1 mmol/L [facility] Sodium [Moles/Vol] 139 mmol/L 136 - 145 mmol/L [facility] TBH EGFR-NON AF WALLISIAN 30 Low >=60 mL/min/1.73 m 2 [facility] Urea nitrogen [Mass/Vol] 26 mg/dL High 7.0 - 18.0 mg/dL [facility] Urea nitrogen/Creatinine [Mass ratio] 15.9 mg/mg [facility] 36on 06-30-2024 36 Regarding CXR result from 06/23/2024: MD Mariaa Fernandes MA There is a rib fracture and possible lung infiltrates. Please ask that Dr León follows up on this. Spoke with patient and informed her I'd be faxed over the CXR to PCP. She will keep her apt with Dr. Nova on 07/25/2024. Normal [facility] 36on 06-25-2024 36 Regarding lab result s from 06/23/2024: MD Mariaa Fernandes MA Please have her change digoxin to every other day and spironolactone to half tablet daily. Obtain a follow-up BMP and digoxin level in 1 month. Patient informed. Lab orders mailed to her home. Awaiting CXR results. Normal [facility] ALL CBC WITH AUTO DIFFon BASOPHILS ABSOLUTE AUTO 0.1 [facility] Basophils/100 WBC (Bld) 0.6 % 0.2 - 2.0 % [facility] Eosinophils/100 WBC (Bld) 2.2 % 0.9 - 7.0 % [facility] Erythrocyte distribution width (RBC) [Ratio] 14.6 % 11.0 - 15.0 % [facility] Hematocrit (Bld) [Volume fraction] 37.4 % 36.0 - 48.0 % [facility] Hemoglobin (Bld) [Mass/Vol] 11.3 g/dL Low 12.0 - 16.0 g/dL [facility] IMMATURE GRANULOCYTES ABS AUTO 0.03 [facility] Immature granulocytes/100 WBC (Bld) 0.3 % 0.0 - 0.5 % [facility] Interpretation and review of laboratory results Abnormal [facility] LYMPHOCYTES ABSOLUTE AUTO 0.8 Low [facility] Lymphocytes/100 WBC (Bld) 7.9 % Low 20.5 - 60.0 % [facility] MCH (RBC) [Entitic mass] 28.6 pg 26.7 - 34.0 pg [facility] MCHC (RBC) [Mass/Vol] 30.2 g/dL 29.9 - 35.2 g/dL [facility] MCV (RBC) [Entitic vol] 94.7 fL 81.0 - 99.0 fL [facility] MONOCYTES ABSOLUTE AUTO 0.8 [facility] Monocytes/100 WBC (Bld) 8.9 % 1.7 - 12.0 % [facility] NEUTROPHILS ABSOLUTE AUTO 7.6 High [facility] Neutrophils/100 WBC (Bld) 80.1 % High 43.0 - 75.0 % [facility] Platelet mean volume (Bld) [Entitic vol] 9.5 fL 9.5 - 13.5 fL [facility] TBH EO # 0.2 [facility]H PLT 314 [facility] TB RBC 3.95 Low [facility] TB WBC 9.5 [facility] Office Visiton 06-23-2024 Follow-up visit [id number] Jenni Quinones 1940 F Date Provider Department Center 06/23/2024 JOSEFINA STEIN SYMONE [facility] Family History Problem Relation Age of Onset Diabetes Father Heart failure Father Other Other Family Status - Relation Status Age at Father Other Level of Service:81154 [place] OFFICE/OUTPATIENT ESTABLISHED MOD MDM 30 MIN Normal [facility] 30on 06-11-2024 30 Daily Case Managemen t Update Multidisciplinary rounds have been completed. Barriers to Discharge: 06/11- POD 1 Underwent Successful utmyz-th-izmid transcatheter aortic valve replacement. 3 L NC, small hematoma on chest- stable. Echocardiogram reviewed showing trivial insufficiency. Valve is functioning well. Discharge now in/ appt scheduled. Diet: Dietary Orders (From admission, onward) Start Ordered 06/10/24 3139 Special Kitchen Request Once Comments: Hot roast [...] PT Recommendations: OT Recommendations: New Consults: Normal [facility] BASIC METABOLIC PANELon 12-0 Anion gap [Moles/Vol] 12 mmol/L Normal 7-20 [facility] Comment on above: Performed By: #### L [id number] #### [facility] (BEAKER) [address] [place] [address] Calcium [Mass/Vol] 8.5 mg/dL Low 8.6-10.3 [facility] Comment on above: Performed By: #### L [id number] #### [facility] (BEAKER) [address] [place] [address] Chloride [Moles/Vol] 104 mmol/L Normal 98-107 [facility] Comment on above: Performed By: #### L [id number] #### [facility] (BEAKER) [address] [place] [address] CO2 [Moles/Vol] 24 mmol/L Normal 21-31 [facility] Comment on above: Performed By: #### L [id number] #### [facility] (BEAKER) [address] [place] [address] Creatinine [Mass/Vol] 1.68 mg/dL High 0.60-1.20 [facility] Comment on above: Performed By: #### L [id number] #### [facility] (BEAKER) [address] [place] [address] GLOMERULAR FILTRATION RATE ML/MIN/1.73 SQ M.PREDICTED 29.6 mL/min/1.73m*2 Low >60.0 [facility] Comment on above: Result Comment: [facility]???s estimated glomerular filtration rate (eGFR) [...] individuals. Performed By: #### L [id number] #### [facility] ([facility]) [address] [place] [address] Glucose [Mass/Vol] 119 mg/dL High 70-100 [facility] Comment on above: Performed By: #### L [id number] #### [facility] ([facility]) [address] [place] [address] Potassium [Moles/Vol] 3.7 mmol/L Normal 3.5-5.1 [facility] Comment on above: Performed By: #### L [id number] #### [facility] ([facility]) [address] [place] [address] Sodium [Moles/Vol] 136 mmol/L Normal 136-145 [facility] Comment on above: Performed By: #### L [id number] #### [facility] ([facility]) [address] [place] [address] Urea nitrogen [Mass/Vol] 38 mg/dL High 7-25 [facility] Comment on above: Performed By: #### L [id number] #### [facility] ([facility]) [address] [place] [address] UREA NITROGEN/CREATININE (MASS RATIO) IN SER/PLAS 22.6 Normal [facility] Comment on above: Performed By: #### L [id number] #### [facility] ([facility]) [address] [place] [address] CBCon 06-11-2024 Erythrocyte distribution width (RBC) [Ratio] 14.9 % Normal 11.5-15.0 [facility] Comment on above: Performed By: #### L [id number] #### [facility] ([facility] [address] [place] [address] ERYTHROCYTE MEAN CORPUSCULAR HEMOGLOBIN CONCENTRATION (G/DL) BY AUTOMATED 30.2 g/dL Low 32.0-35.0 [facility] Comment on above: Performed By: #### L [id number] #### [facility] ([facility] [address] [place] [address] Hematocrit (Bld) [Volume fraction] 30.8 % Low 36.0-48.0 [facility] Comment on above: Performed By: #### L [id number] #### [facility] ([facility] [address] [place] [address] Hemoglobin (Bld) [Mass/Vol] 9.3 g/dL Low 12.0-15.0 [facility] Comment on above: Performed By: #### L [id number] #### [facility] ([facility] [address] [place] [address] MCH (RBC) [Entitic mass] 29.0 pg Normal 27.0-33.0 [facility] Comment on above: Performed By: #### L [id number] #### [facility] (BEAKER) [address] [place] [address] MCV (RBC) [Entitic vol] 96.0 fL Normal 82.0-98.0 [facility] Comment on above: Performed By: #### L [id number] #### [facility] (BEAKER) [address] [place] [address] PLATELETS (10*3/UL) IN BLOOD AUTOMATED COUNT 221 10*3/uL Normal 150-400 [facility] Comment on above: Performed By: #### L [id number] #### [facility] (BEAKER) [address] [place] [address] RBC (Bld) [#/Vol] 3.21 10*6/uL Low 3.80-5.00 [facility] Comment on above: Performed By: #### L [id number] #### [facility] (BEAKER) [address] [place] [address] WBC (Bld) [#/Vol] 8.78 10*3/uL Normal 4.00-10.60 [facility] Comment on above: Performed By: #### L [id number] #### [facility] ([facility]) [address] [place] [address] DSon 06-11-2024 DS ----- ----- Attestation with [...] Your Medications These medications were sent to [facility] - [place], [place] - [address] [facility] [address] [place] [address] clopidogrel 75 mg tablet Activity Normal activity [...] She has history of prior admissions to [facility] with AF/RVR and diastolic heart failure [...] tenderness. Abdo (more content not included)... Normal [facility] MAGNESIUMon 06-11-2024 Magnesium [Mass/Vol] 2.3 mg/dL Normal 1.9-2.7 [facility] Comment on above: Performed By: #### L [id number] #### [facility] (BEAKER) [address] [place] [address] POCT GLUCOSE METER UNSOLICIT ED RESULTSon 06-11-2024 Glucose [Mass/Vol] 121 mg/dL High 70-105 [facility] Comment on above: Order Comment: Waive d Testing in the ED is performed under the ED CLIA certificate #[id number]. Result Comment: vmel mikhail Performed By: #### L [id number] ####[facility] (BEAKER)[address] [place] [address] BASIC METABOLIC PANELon 12-0 Anion gap [Moles/Vol] 11 mmol/L Normal 7-20 [facility] Comment on above: Performed By: #### L [id number] ####[facility] [place] [address] Calcium [Mass/Vol] 8.5 mg/dL Low 8.6-10.3 [facility] Comment on above: Performed By: #### L [id number] ####[facility] ([facility])[address] [place] [address] Chloride [Moles/Vol] 103 mmol/L Normal 98-107 [facility] Comment on above: Performed By: #### L [id number] ####[facility] ([facility])[address] [place] [address] CO2 [Moles/Vol] 26 mmol/L Normal 21-31 [facility] Comment on above: Performed By: #### L [id number] ####[facility] ([facility])[address] [place] [address] Creatinine [Mass/Vol] 1.68 mg/dL High 0.60-1.20 [facility] Comment on above: Performed By: #### L [id number] ####[facility] ([facility])[address] [place] [address] GLOMERULAR FILTRATION RATE ML/MIN/1.73 SQ M.PREDICTED 29.6 mL/min/1.73m*2 Low >60.0 [facility] Comment on above: Result Comment: [facility]???s estimated glomerular filtration rate (eGFR) [...] of individuals. Performed By: #### L [id number] ####[facility] ([facility])[address] [place] [address] Glucose [Mass/Vol] 107 mg/dL High 70-100 [facility] Comment on above: Performed By: #### L [id number] ####[facility] ([facility])[address] [place] [address] Potassium [Moles/Vol] 3.9 mmol/L Normal 3.5-5.1 [facility] Comment on above: Performed By: #### L [id number] ####[facility] ([facility])[address] [place] [address] Sodium [Moles/Vol] 136 mmol/L Normal 136-145 [facility] Comment on above: Performed By: #### L [id number] ####[facility] ([facility])[address] [place] [address] Urea nitrogen [Mass/Vol] 41 mg/dL High 7-25 [facility] Comment on above: Performed By: #### L [id number] ####[facility] ([facility])[address] [place] [address] UREA NITROGEN/CREATININE (MASS RATIO) IN SER/PLAS 24.4 Normal [facility] Comment on above: Performed By: #### L [id number] ####[facility] ([facility])[address] [place] [address] CONSULTon 06-10-2024 CONSULT Surgical Intensive C are [...] She has history of prior admissions to [facility] with AF/RVR and diastolic heart failure [...] drugs. Family History: pulled available information in [facility] from previous visits Family History Problem [...] femoral/radial/DP pulses (more content not included)... Normal [facility] HPon 06-10-2024 HP H&P reviewed. The pa marilyn was examined and there are no changes to the H&P. Normal [facility] NURSNOTEon 06-10-2024 NURSNOTE Report given [...] coming up to the floor soon. Normal [facility] NURSNOTE CHG wipes and betadi ne nasal swabs completed. Normal [facility] POCT GLUCOSE METER UNSOLICIT ED RESULTSon 06-10-2024 Glucose [Mass/Vol] 170 mg/dL High 70-105 [facility] Comment on above: Order Comment: Waive d Testing in the ED is performed under the ED CLIA certificate #[id number]. Result Comment: [email or web address] Performed By: #### L [id number] #### [facility] (BEAKER) [address] [place] [address] Glucose [Mass/Vol] 124 mg/dL High 70-105 [facility] Comment on above: Order Comment: Waive d Testing in the ED is performed under the ED CLIA certificate #[id number]. Result Comment: asko rigoberto Performed By: #### L [id number] ####[facility] (BEAKER)[address] [place] [address] TYPE AND SCREENon 06-10-2024 AB SCREEN Negative Normal [facility] Comment on above: Performed By: #### L [id number] #### [facility] , ABO group Nom (Bld) A Normal [facility] Comment on above: Performed By: #### L [id number] #### [facility] , RH TYPE IN BLOOD Negative Normal [facility] Comment on above: Performed By: #### L [id number] #### [facility] , Telephoneon 06-03-2024 Telephone [id number] QuinonesJenni M 1940 F Date Provider Department Center 06/03/2024 [id number] [place] [facility] Family History Problem Relation Age of Onset Diabetes Father Heart failure Father Other Other Family Status - Relation Status Age at Father Other Reason for Visit and Comments: Dental clearance reminder [Other] Normal [facility] CMP (CMP) (FOR REMOTE FH C USE)on 06-02-2024 Albumin [Mass/Vol] 3.1 g/dL Low 3.4 - 5.0 g/dL [facility] ALBUMIN GLOBULIN RATIO 0.6 [facility] ALP [Catalytic activity/Vol] 109 U/L 46 - 116 U/L [facility] ALT [Catalytic activity/Vol] 9 U/L Low 14 - 59 U/L [facility] Anion gap [Moles/Vol] 15.4 mmol/L [facility] AST [Catalytic activity/Vol] 12 U/L Low [...] rate/Area] 29 Low >=60 mL/min/1.73 m 2 [facility] Globulin (S) [Mass/Vol] 5.5 g/dL [facility] Glucose [Mass/Vol] 95 mg/dL 74 - 106 mg/dL [facility] Interpretation and review of laboratory results Abnormal [facility] Potassium [Moles/Vol] 4.3 mmol/L 3.5 - 5.1 mmol/L [facility] Protein [Mass/Vol] 8.6 g/dL High 6.4 - 8.2 g/dL [facility] Sodium [Moles/Vol] 140 mmol/L 136 - 145 mmol/L [facility] TBH EGFR-NON AF WALLISIAN 24 Low >=60 mL/min/1.73 m 2 [facility] Urea nitrogen [Mass/Vol] 34 mg/dL High 7.0 - 18.0 mg/dL [facility] Urea nitrogen/Creatinine [Mass ratio] 17.1 mg/mg [facility] HPon 06-02-2024 [facility] Card[facility] - [facility] Subjective Jennierick Quinones is a 84 y.o. year old female patient being seen to discuss TAVR. Patient Active Problem List Diagnosis Anemia Diastolic heart failure (CMS/HCC) Dyspnea Hyperlipemia Mitral and aortic incompetence Atrial fibrillation with rapid ventricular response ([facility]) Abnormal gait Abnormal laboratory test result Acquired hypothyroidism Acute on chronic systolic heart failure (CMS/HCC) Allergic rhinitis due to pollen Aortic valve disorder Asthma Chronic obstructive pulmonary disease (CMS/HCC) Diabetic renal disease (CMS/HCC) Difficulty walking Diverticulosis of colon Drug-induced constipation History of iron deficiency Heart valve transplanted Hyperthyroidism custodial current use of anticoagulant therapy Mixed anxiety [...] She has history of prior admissions to [facility] with AF/RVR and diastolic heart failure [...] artery disease (more content not included)... Normal [facility] Office Visiton 06-02-2024 Follow-up visit [id number] Jenni Quinones 1940 F Date Provider Department Center 06/02/2024 Rocky-JOSEFINA NOVA C[facility] Family History Problem Relation Age of Onset Diabetes Father Heart failure Father Other Other Family Status - Relation Status Age at Father Other Level of Service:20618 [place] OFFICE/OUTPATIENT ESTABLISHED HIGH MDM 40 MIN Normal [facility] Orders Onlyon 05-30-2024 Orders Only [id number] Jenni Quinones 1940 Date Provider Department Center 05/30/2024 Zohra-HOMA CHAVARRIA Juadh CARD [facility] Family History Problem Relation Age of Onset Diabetes Father Heart failure Father Other Other Family Status - Relation Status Age at Father Other Normal [facility] CTA ABDOMEN PELVIS W IV [...] signed: Meena Lopes. Yaneth Invalid Interpretation Code [facility] CTA CHEST W IV CONTRASTon [...] signed: Meena Lopes. Yaneth Invalid Interpretation Code [facility] Comment on above: Order Comment: Low d ose contrast (40 ml) Consulton 05-29-2024 Consult [id number] Jenni Quinones 1940 F Date Provider Department Center 05/29/202433177-SUGMKDCRAIG BRAUN HVCTS [facility] Family History Problem Relation Age of Onset Diabetes Father Heart failure Father Other Other Family Status - Relation Status Age at Father Other Level of Service:24417 [place] OFFICE/OP CONSLTJ NEW/EST PT HIGH MDM 55 MINUTES Reason for Visit and Comments: New Patient [632[facility] reviewed. The zoey sanders was [...] wishes to proceed. Kisha Durand MD PGY-6 Reverse Logistics Analyst [facility] ----- ----- Attestation signed by Pankaj Todd [...] were addressed and answered. Yanet Ospina MD Reverse Logistics Analyst - PGY6 [facility] NURSNOTEon 05-27-2024 NURSNOTE RN educated [...] off of unit with all of belongings. [facility] NURSNOTE Bedside swallow stud y completed and passed. [facility] Orders Onlyon 05-27-2024 Orders Only [id number] Jenni Quinones 1940 F Date Provider Department Center 05/27/2024 Zohra-HOMA CHAVARRIA [facility] CARD [facility] Family History Problem Relation Age of Onset Diabetes Father Heart failure Father Other Other Family Status - Relation Status Age at Father Other [facility] ALL BASIC METABOLIC PANELon 05-26-2024 Anion gap [Moles/Vol] 11.9 mmol/L [facility] Calcium [Mass/Vol] 9.4 mg/dL 8.5 - 10. 1 mg/dL [facility] Chloride [Moles/Vol] 98 mmol/L 98 - 10 7 mmol/L [facility] CO2 [Moles/Vol] 34.2 mmol/L High 21.0 - 32.0 mmol/L [facility] Creatinine [Mass/Vol] 1.89 mg/dL High 0.55 - 1.02 mg/dL [facility] GFR/1.73 sq M.predicted CKD-EPI (S/P/Bld) [Vol rate/Area] 31 Low >=60 mL/min/1.73 m 2 [facility] Glucose [Mass/Vol] 106 mg/dL 74 - 106 mg/dL [facility] Interpretation and review of laboratory results Abnormal [facility] Potassium [Moles/Vol] 4.1 mmol/L 3.5 - 5.1 mmol/L [facility] Sodium [Moles/Vol] 140 mmol/L 136 - 145 mmol/L [facility] TBH EGFR-NON AF WALLISIAN 25 Low >=60 mL/min/1.73 m 2 [facility] Urea nitrogen [Mass/Vol] 38 mg/dL High 7.0 - 18.0 mg/dL [facility] Urea nitrogen/Creatinine [Mass ratio] 20.1 mg/mg [facility] ALL CBC WITH AUTO DIFFon BASOPHILS ABSOLUTE AUTO 0.1 [facility] Basophils/100 WBC (Bld) 0.7 % 0.2 - 2.0 % [facility] Eosinophils/100 WBC (Bld) 2.4 % 0.9 - 7.0 % [facility] Erythrocyte distribution width (RBC) [Ratio] 16 % High 11.0 - 15.0 % [facility] Hematocrit (Bld) [Volume fraction] 37.4 % 36.0 - 48.0 % [facility] Hemoglobin (Bld) [Mass/Vol] 11.4 g/dL Low 12.0 - 16.0 g/dL [facility] IMMATURE GRANULOCYTES ABS AUTO 0.03 [facility] Immature granulocytes/100 WBC (Bld) 0.3 % 0.0 - 0.5 % [facility] Interpretation and review of laboratory results Abnormal [facility] LYMPHOCYTES ABSOLUTE AUTO 0.8 Low [facility] Lymphocytes/100 WBC (Bld) 7.3 % Low 20.5 - 60.0 % [facility] MCH (RBC) [Entitic mass] 29.3 pg 26.7 - 34.0 pg [facility] MCHC (RBC) [Mass/Vol] 30.5 g/dL 29.9 - 35.2 g/dL [facility] MCV (RBC) [Entitic vol] 96.1 fL 81.0 - 99.0 fL [facility] MONOCYTES ABSOLUTE AUTO 1.1 High [facility] Monocytes/100 WBC (Bld) 10.3 % 1.7 - 12.0 % [facility] NEUTROPHILS ABSOLUTE AUTO 8.4 High [facility] Neutrophils/100 WBC (Bld) 79 % High 43.0 - 75.0 % [facility] Platelet mean volume (Bld) [Entitic vol] 9.6 fL 9.5 - 13.5 fL [facility] TB EO # 0.3 [facility] TB PLT 273 [facility] TB RBC 3.89 Low [facility] TB WBC 10.7 [facility] Orders Onlyon 05-23-2024 Orders Only [id number] Jenni Quinones 1940 F Date Provider Department [place] 05/23/2024 CHAYO TRAN [facility] MS Heart[facility]AS Family History Problem Relation Age of Onset Diabetes Father Heart failure Father Other Other Family Status - Relation Status Age at Father Other Normal [facility] HP 05-13-2024 Cardiovascular Medic [facility] SUBJECTIVE Chief Complaint Patient presents with [...] c/o chest pain. She was transferred to [facility] for further cardiac care. She [...] of iron deficiency Heart valve transplanted Hyperthyroidism intermediate card tender current use of anticoagulant therapy Mixed anxiety [...] fibrillation (CMS/HCC) Bradycardia CHF (congestive heart failure) ([facility]/HCC) Heart valve disease Hyperlipidemia Hypertension Sleep [...] Rfl: 0 (more content not included)... Normal [facility] Office Visiton 05-13-2024 Follow-up visit [id number] Jenni Quinones 1940 F Date Provider Department Center 05/13/2024 BRENT PÉREZ CARD Jose [facility] Family History Problem Relation Age of Onset Diabetes Father Heart failure Father Other Other Family Status - Relation Status Age at Father Other Level of Service:56982 [place] OFFICE/OUTPATIENT ESTABLISHED [facility] 40 MIN Reason for Visit and Comments: Valve Disorder [3372] Congestive Heart Failure [127] Normal [facility] STR cardiac stress/lexiscano n 04-27-2024 STR cardiac stress/lexiscan [facility] [place] [address] Cardiac Stress Test Signed Patient: Jenni Quinonse MR#: [id number] 0 : 1940 Acct:[id number] Age/Sex: 84 / F ADM Date: 04/25/24 Loc: Room: [address] [place] [address] Type: DIS IN Attending Dr: Javan Gruber [...] 1606 Signed By: 05/01/24 1218 Normal [facility] A1C with Estimated Average G jaylin 04-25-2024 Glucose [Mass/Vol] 171 mg/dL Normal [facility] Comment on above: Result Comment: PERF ORMED BY: [place] [address] PATHOLOGIST IT PROFESSIONAL ALVARO LEWIS M.D. Performed By: #### M G, LIPID, A1C WT eA, BMP, HEPATIC #### [place] [id number] [facility] Activated partial thrombopla stin time (aPTT) in platelet poor plasma by coagulation aOrdered By: Lalo Carter on 04-25-2024 aPTT Coag (PPP) [Time] 30.0 s 25.1-36.5 [facility] Comment on above: A hematocrit value g reater than 55% may lead to inaccurate results in coagulation testing. Patients having hematocrit values >55% require a special collection tube for coagulation studies. Please contact the laboratory at [phone] for redraw instructions. Alanine aminotransferase [En zymatic activity/volume] in Serum or PlasmaOrdered By: Lalo Carter on 04-25-2024 ALT [Catalytic activity/Vol] 7 U/L Normal 7-52 [facility] Comment on above: Order Comment: FASTI NG Y Performed By: #### M G, LIPID, A1C WTH eA, BMP, HEPATIC #### [address] [address] [facility] Albumin [Mass/volume] in Ser um or Plasma by Bromocresol green (BCG) dye binding methoOrdered By: Lalo Carter on 04-25-2024 Albumin BCG dye [Mass/Vol] 3.1 g/dL Low 3.5-5.7 [facility] Alkaline phosphatase [Enzyma tic activity/volume] in Serum or PlasmaOrdered By: Lalo Carter on 04-25-2024 ALP [Catalytic activity/Vol] 78 U/L Normal 34-104 [facility] Comment on above: Order Comment: FASTI NG Y Performed By: #### M G, LIPID, A1C WTH eA, BMP, HEPATIC #### [address] Aspartate aminotransferase [ Enzymatic activity/volume] in Serum or PlasmaOrdered By: Lalo Carter on 04-25-2024 AST [Catalytic activity/Vol] 13 U/L Normal 13-39 [facility] Comment on above: Order Comment: FASTI NG Y Performed By: #### M G, LIPID, A1C WTH eA, BMP, HEPATIC #### [address] Automated basophil %Ordered By: Lalo Carter on 04-25-2024 Basophils/100 WBC (Bld) 0.8 % Normal . [facility] Comment on above: Performed By: #### M G, LIPID, A1C WTH eA, BMP, HEPATIC #### [facility] [address] [place] [address] Automated basophil countOrde red By: Lalo Carter on 04-25-2024 Basophils (Bld) [#/Vol] 0.1 10*3/uL Normal 0.0-0.2 [facility] Comment on above: Result Comment: PERF ORMED BY: [place] [address] PATHOLOGIST IT PROFESSIONAL ALVARO LEWIS M.D. Performed By: #### M G, LIPID, A1C WTH eA, BMP, HEPATIC #### [address] Automated blood monocyte cou ntOrdered By: Lalo Carter on 04-25-2024 Monocytes (Bld) [#/Vol] 0.8 10*3/uL Normal 0.0-0.8 [facility] Comment on above: Performed By: #### M G, LIPID, A1C WTH eA, BMP, HEPATIC #### [facility] [address] Automated eosinophil %Ordere d By: Lalo Carter on 04-25-2024 Eosinophils/100 WBC (Bld) 2.9 % Normal . [facility] Comment on above: Performed By: #### M G, LIPID, A1C WTH eA, BMP, HEPATIC #### [facility] [address] Automated eosinophil countOr dered By: Lalo Carter on 04-25-2024 Eosinophils (Bld) [#/Vol] 0.3 10*3/uL Normal 0.0-0.45 [facility] Comment on above: Performed By: #### M G, LIPID, A1C WTH eA, BMP, HEPATIC #### [facility] [address] [place] [address] Automated monocyte %Ordered By: Lalo Carter on 04-25-2024 Monocytes/100 WBC (Bld) 8.7 % Normal . [facility] Comment on above: Performed By: #### M G, LIPID, A1C WTH eA, BMP, HEPATIC #### [facility] [address] [place] [address] Automated neutrophil %Ordere d By: Lalo Carter on 04-25-2024 Neutrophils/100 WBC (Bld) 79.6 % Normal . [facility] Comment on above: Performed By: #### M G, LIPID, A1C WTH eA, BMP, HEPATIC #### [facility] [address] [place] [address] Basic Metabolic Panelon 04-08 Creatinine Clr Calc Pharmacy 32.54 Normal [facility] Comment on above: Order Comment: FASTI NG Y Performed By: #### M G, LIPID, A1C WTH eA, BMP, HEPATIC #### [facility] [address] [place] [address] GFR/1.73 sq M.predicted MDRD (S/P/Bld) [Vol rate/Area] 44.359 mL/min/{1.73_m2} Normal [facility] Comment on above: Order Comment: FASTI NG Y Performed By: #### M G, LIPID, A1C WTH eA, BMP, HEPATIC #### [facility] [address] [place] [address] Bilirubin.direct [Mass/volum e] in Serum or PlasmaOrdered By: Lalo Cartre on 04-25-2024 Bilirubin.direct [Mass/Vol] 0.10 mg/dL 0.03-0.18 [facility] Bilirubin.total [Mass/volume ] in Serum or PlasmaOrdered By: Lalo Carter on 04-25-2024 Bilirubin [Mass/Vol] 0.5 mg/dL Normal 0.3-1.0 [facility] Comment on above: Order Comment: FASTI NG Y Performed By: #### M G, LIPID, A1C WTH eA, BMP, HEPATIC #### [facility] [address] [place], [place] [id number] [facility] CT angio chest PE protocolon 04-25-2024 CT angio chest PE protocol [facility] [place] [address] [place] [address] CT Scan Report Signed Patient: Jenni Quinones MR#: [id number] 0 : 1940 Acct:[id number] Age/Sex: 84 / F ADM Date: 04/25/24 Loc: Room: [address] [place] [address] Type: ADM IN Attending Dr: Lalo Carter [...] Rosina Levin M.D.04/25/2024 8:30 AM Dictation Location: [place] [address] Transcribed By: [facility] 04/25/24829 Dictated By: Rosina Levin MD 04/25/24805 Signed By: 04/25/24829 Normal [facility] Calcium [Mass/volume] in Ser um or PlasmaOrdered By: Lalo Carter on 04-25-2024 Calcium [Mass/Vol] 8.4 mg/dL Low 8.6-10.3 [facility] Comment on above: Order Comment: FASTI NG Y Performed By: #### M G, LIPID, A1C WTH eA, BMP, HEPATIC #### [facility] [address] [place] [id number] [facility] Capillary blood glucose mer urement by glucometer (mass/volume)Ordered By: Javan Gruber on 04-25-2024 Glucose [Mass/Vol] 108 mg/dL Normal [facility] Comment on above: Random Glucose Refer ence Range is dependent on time and content of last meal. Glucose of more than 200 mg/dL in a nonstressed, ambulatory subject supports the diagnosis of Diabetes Mellitus. Result Comment: [place] om Glucose Reference Range is dependent on time and content of last meal. Glucose of more than 200 mg/dL in a nonstressed, ambulatory subject supports the diagnosis of Diabetes Mellitus. Performed By: #### M G, LIPID, A1C WTH eA, BMP, HEPATIC #### [facility] [address] [place] [id number] [place] Carbon dioxide, total [Moles /volume] in Serum or PlasmaOrdered By: Lalo Carter on 04-25-2024 CO2 [Moles/Vol] 30.3 mmol/L Normal 21.0-31.0 [facility] Comment on above: Order Comment: FASTI NG Y Performed By: #### M G, LIPID, A1C WTH eA, BMP, HEPATIC #### [facility] [address] [place] [id number] [place] Chloride [Moles/volume] in S theresa or PlasmaOrdered By: Lalo Carter on 04-25-2024 Chloride [Moles/Vol] 102 mmol/L Normal 98-107 [facility] Comment on above: Order Comment: FASTI NG Y Performed By: #### M G, LIPID, A1C WTH eA, BMP, HEPATIC #### [facility] [address] [place] [id number] [place] Cholesterol [Mass/volume] in Serum or PlasmaOrdered By: Lalo Carter on 04-25-2024 Cholesterol [Mass/Vol] 88 mg/dL Low 140-200 [facility] Comment on above: Chol less than 200 m g/dl low riskChol 201-239 mg/dl borderline riskChol 240 mg/dl and greater high risk Order Comment: FASTI NG Y Result Comment: Chol less than 200 mg/dl low risk Chol 201-239 mg/dl borderline risk Chol 240 mg/dl and greater high risk Performed By: #### M G, LIPID, A1C WTH eA, BMP, HEPATIC #### [facility] [address] [place] [address] [place] Cholesterol in LDL Calc [Mas s/Vol]Ordered By: Lalo Carter on 04-25-2024 Cholesterol in LDL [Mass/Vol] 36 mg/dL 0-100 [facility] Comment on above: LDL ATP III CLASSIFI CATIONLDL less than 100 mg/dL OptimalLDL 100-129 mg/dL Near or above optimalLDL 130-159 mg/dL Borderline highLDL 160-189 mg/dL HighLDL greater than 189 mg/dL Very high Cholesterol in VLDL Calc [Ma ss/Vol]Ordered By: Lalo Carter on 04-25-2024 Cholesterol in VLDL [Mass/Vol] 18 mg/dL [facility] Complete Blood Count Auto Di ffon 04-25-2024 Mean Corpuscular HGB Conc 32.8 g/dL Normal 32.0-35.0 [facility] Comment on above: Performed By: #### M G, LIPID, A1C WTH eA, BMP, HEPATIC #### [facility] [address] [place] [address] [place] NRBC% 0.1 /100{WBC} Normal 0-0.5 [facility] Comment on above: Performed By: #### M G, LIPID, A1C WTH eA, BMP, HEPATIC #### [facility] [address] [place] [address] [place] Creatinine [Mass/volume] in Serum or PlasmaOrdered By: Lalo Carter on 04-25-2024 Creatinine [Mass/Vol] 1.20 mg/dL Normal 0.60-1.20 [facility] Comment on above: Order Comment: FASTI NG Y Performed By: #### M G, LIPID, A1C WT eA, BMP, HEPATIC #### [address] ECG 12 lead ECGon 04-25-2024 ECG 12 lead ECG [facility] [place] [address] Electrocardiograph Report Signed Patient: Jenni Quinones MR#: [id number] 0 : 1940 Acct:[id number] Age/Sex: 84 / F ADM Date: 04/25/24 Loc: 4C Room: [address] [place] [address] Type: DIS IN Attending Dr: Javan Gruber [...] [facility] 04/25/24 1726 Normal [facility] ECH echo transthoracicon ECH echo transthoracic [facility] [place] [address] Echocardiogram Signed Patient: Jenni Quinones MR#: [id number] 0 : 1940 Acct:[id number] Age/Sex: 84 / F ADM Date: 04/25/24 Loc: Room: [address] [place] [address] Type: DIS IN Attending Dr: Javan Gruber MD Ordering Provider: Lalo Carter DO Date of Service: 04/25/24 ECH/ECH echo transthoracic: history of aortic insufficiency. Copies to: Palmira Lowery MD, [facility] Lalo L BrianDO kimi Weight: 166 lb [...] [place] (more content not included)... Normal [facility] Erythrocyte distribution wid th [Ratio] by Automated countOrdered By: Lalo Carter on 04-25-2024 Erythrocyte distribution width (RBC) [Ratio] 18.3 % High 11.9-15.3 [facility] Comment on above: Performed By: #### M G, LIPID, A1C WTH eA, BMP, HEPATIC #### [facility] [address] Erythrocytes [#/volume] in B lood by Automated countOrdered By: Lalo Carter on 04-25-2024 RBC (Bld) [#/Vol] 3.18 10*6/uL Low 3.60-5.00 [facility] Comment on above: Performed By: #### M G, LIPID, A1C WTH eA, BMP, HEPATIC #### [facility] [address] [place] [id number] [place] Glucose Poct Glucometerson 1 Commemt1 Glu2: Cleaned Meter Normal [facility] Comment on above: Result Comment: PERF ORMED BY: [facility] [address] [facility] [place] [address] PATHOLOGIST IT PROFESSIONAL ALVARO LEWIS M.D. Performed By: #### M G, LIPID, A1C WTH eA, BMP, HEPATIC #### [facility] [address] [place] [id number] [place] Glucose [Mass/volume] in Ser um or PlasmaOrdered By: Lalo Carter on 04-25-2024 Glucose [Mass/Vol] 121 mg/dL High 70-100 [facility] Comment on above: ADA recommended refe rence rangeRandom Glucose Reference Range is dependent on time and content of last meal. Glucose of more than 200 mg/dL in a nonstressed, ambulatory subject supports the diagnosis of Diabetes Mellitus. Order Comment: FASTI NG Y Result Comment: [place] om Glucose Reference Range is dependent on time and content of last meal. Glucose of more than 200 mg/dL in a nonstressed, ambulatory subject supports the diagnosis of Diabetes Mellitus. ADA recommended reference range Performed By: #### M G, LIPID, A1C WTH eA, BMP, HEPATIC #### [facility] [address] [place] [id number] [place] Glucose mean value [Mass/vol ume] in Blood Estimated from glycated hemoglobinOrdered By: Lalo Carter on 04-25-2024 Average glucose Estimated from glycated hemoglobin (Bld) [Mass/Vol] 171 mg/dL [facility] Hematocrit [Volume Fraction] of Blood by Automated countOrdered By: Lalo Carter on 04-25-2024 Hematocrit (Bld) [Volume fraction] 28.8 % Low 34.0-46.4 [facility] Comment on above: Performed By: #### M G, LIPID, A1C WTH eA, BMP, HEPATIC #### [facility] [address] [place] [address] [place] Hemoglobin A1c percentageOrd ered By: Lalo Carter on 04-25-2024 HbA1c (Bld) [Mass fraction] 7.6 % High 4.3-5.6 [facility] Comment on above: Increased risk for d iabetes: 5.7 - 6.4diabetes: >6.4glycemic control for adults with diabetes: <7.0 Result Comment: Incr eased risk for diabetes: 5.7 - 6.4 diabetes: >6.4 glycemic control for adults with diabetes: <7.0 Performed By: #### M G, LIPID, A1C WTH eA, BMP, HEPATIC #### [facility] [address] Hemoglobin [Mass/volume] in BloodOrdered By: Lalo Carter on 04-25-2024 Hemoglobin (Bld) [Mass/Vol] 9.4 g/dL Low 11.8-15.4 [facility] Comment on above: Performed By: #### M G, LIPID, A1C WTH eA, BMP, HEPATIC #### [facility] [address] Hepatic Panelon 04-25-2024 Albumin [Mass/Vol] 3.1 g/dL Low 3.5-5.7 [facility] Comment on above: Order Comment: FASTI NG Y Performed By: #### M G, LIPID, A1C WTH eA, BMP, HEPATIC #### [facility] [address] Bilirubin,Indirect 0.4 mg/dL Normal [facility] Comment on above: Order Comment: FASTI NG Y Performed By: #### M G, LIPID, A1C WTH eA, BMP, HEPATIC #### [facility] [address] Bilirubin.indirect [Mass/Vol] 0.10 mg/dL Normal 0.03-0.18 [facility] Comment on above: Order Comment: FASTI NG Y Performed By: #### M G, LIPID, A1C WTH eA, BMP, HEPATIC #### [facility] [address] [place] [id number] [place] INR in Platelet poor plasma by Coagulation assayOrdered By: Lalo Carter on 04-25-2024 INR Coag (PPP) [Relative time] 1.1 {INR} Normal [facility] Comment on above: INR Therapeutic Rang [...] LIPID, A1C WTH eA, BMP, HEPATIC #### [facility] [address] Leukocytes [#/volume] correc paige for nucleated erythrocytes in Blood by Automated counOrdered By: Lalo Vargaspierce on 04-25-2024 WBC corrected for nucl RBC Auto (Bld) [#/Vol] 8.9 10*3/uL 3.8-11.6 [facility] Leukocytes [#/volume] in Blo od by Automated countOrdered By: Lalo Emma on 04-25-2024 WBC (Bld) [#/Vol] 8.9 10*3/uL Normal 3.8-11.6 [facility] Comment on above: Performed By: #### M G, LIPID, A1C WTH eA, BMP, HEPATIC #### [facility] [address] Lipid Panelon 04-25-2024 LDL Cholesterol,Calculate d 36 mg/dL Normal 0-100 [facility] Comment on above: Order Comment: FASTI NG Y Result Comment: LDL ATP III CLASSIFICATION LDL less than 100 mg/dL Optimal LDL 100-129 mg/dL Near or above optimal LDL 130-159 mg/dL Borderline high LDL 160-189 mg/dL High LDL greater than 189 mg/dL Very high Performed By: #### M G, LIPID, A1C WTH eA, BMP, HEPATIC #### [address] Triglyceride w/Reflex 92 mg/dL Normal 0-149 [facility] Comment on above: [...] LIPID, A1C WTH eA, BMP, HEPATIC #### [address] VLDL CHOLESTEROL 18 mg/dL Normal [facility] Comment on above: Order Comment: FASTI NG Y Performed By: #### M G, LIPID, A1C WTH eA, BMP, HEPATIC #### [address] Lymphocytes [#/volume] in Bl ood by Automated countOrdered By: Lalo Carter on 04-25-2024 Lymphocytes (Bld) [#/Vol] 0.7 10*3/uL Low 1.00-4.8 [facility] Comment on above: Performed By: #### M G, LIPID, A1C WTH eA, BMP, HEPATIC #### [place] [address] [place] Lymphocytes/100 leukocytes i n Blood by Automated countOrdered By: Lalo Carter on 04-25-2024 Lymphocytes/100 WBC (Bld) 8.0 % Normal . [facility] Comment on above: Performed By: #### M G, LIPID, A1C WTH eA, BMP, HEPATIC #### [address] MCH [Entitic mass] by Automa paige countOrdered By: Lalo Carter on 04-25-2024 MCH (RBC) [Entitic mass] 29.7 pg Normal 24.7-34.3 [facility] Comment on above: Performed By: #### M G, LIPID, A1C WTH eA, BMP, HEPATIC #### [address] MCHC Auto (RBC) [Mass/Vol]Or dered By: Lalo Carter on 04-25-2024 MCHC (RBC) [Mass/Vol] 32.8 g/dL 32.0-35.0 [facility] MCV [Entitic volume] by Auto mated countOrdered By: Lalo Carter on 04-25-2024 MCV (RBC) [Entitic vol] 90.6 fL Normal 80-100 [facility] Comment on above: Performed By: #### M G, LIPID, A1C WTH eA, BMP, HEPATIC #### [address] Magnesium [Mass/volume] in S theresa or PlasmaOrdered By: Lalo Carter on 04-25-2024 Magnesium [Mass/Vol] 2.1 mg/dL Normal 1.9-2.7 [facility] Comment on above: Order Comment: FASTI NG Y Performed By: #### M G, LIPID, A1C WTH eA, BMP, HEPATIC #### [address] [place] lissy perf SPECT rest stron 04-25-2024 NM lissy perf SPECT rest str [facility] [place] [address] Nuclear Medicine Report Signed Patient: Jenni Quinones MR#: [id number] 0 : 1940 Acct:[id number] Age/Sex: 84 / F ADM Date: 04/25/24 Loc: Room: [address] [place] [address] Type: DIS IN Attending Dr: Javan Gruber [...] 1614 Signed By: 05/01/24 1218 Normal [facility] Neutrophils [#/volume] in Bl ood by Automated countOrdered By: Lalo Carter on 04-25-2024 Neutrophils (Bld) [#/Vol] 7.1 10*3/uL Normal 1.8-7.7 [facility] Comment on above: Performed By: #### M G, LIPID, A1C WTH eA, BMP, HEPATIC #### [facility] [address] [place] [address] No Panel InformationOrdered By: Javan Gruber on 04-25-2024 Bedside Glucose Comment Glu2: cleaned meter [facility] No Panel InformationOrdered By: Lalo Carter on 04-25-2024 Estimated GFR (CKD-EPI) 44.359 mL/Min [facility] Creatinine Clearance (Chem 32.54 [facility] Nucleated erythrocytes [Pres ence] in Blood by Automated countOrdered By: Lalo Carter on 04-25-2024 Nucleated RBC Auto Ql (Bld) 0.1 /100{WBC} 0-0.5 [facility] Partial Thromboplastin Timeo n 04-25-2024 aPTT Coag (Bld) [Time] 30.0 s Normal 25.1-36.5 [facility] Comment on above: Result Comment: A he matocrit value greater than 55% may lead to inaccurate results in coagulation testing. Patients having hematocrit values >55% require a special collection tube for coagulation studies. Please contact the laboratory at [phone] for redraw instructions. PERFORMED BY: [place] [address] PATHOLOGIST IT PROFESSIONAL ALVARO LEWIS M.D. Performed By: #### M G, LIPID, A1C WTH eA, BMP, HEPATIC #### [place] [address] [place] Platelet mean volume [Entiti c volume] in Blood by Automated countOrdered By: Lalo Carter on 04-25-2024 Platelet mean volume (Bld) [Entitic vol] 8.0 fL Normal 6.3-10.7 [facility] Comment on above: Performed By: #### M G, LIPID, A1C WTH eA, BMP, HEPATIC #### [place] [address] [place] Platelets [#/volume] in Bloo d by Automated countOrdered By: Lalo Carter on 04-25-2024 Platelets (Bld) [#/Vol] 273 10*3/uL Normal 150-450 [facility] Comment on above: Performed By: #### M G, LIPID, A1C WTH eA, BMP, HEPATIC #### [place] [address] [place] Potassium [Moles/volume] in Serum or PlasmaOrdered By: Lalo Carter on 04-25-2024 Potassium [Moles/Vol] 5.2 mmol/L High 3.5-5.1 [facility] Comment on above: Order Comment: FASTI NG Y Performed By: #### M G, LIPID, A1C WTH eA, BMP, HEPATIC #### [place] [id number] [place] Protein [Mass/volume] in Ser um or PlasmaOrdered By: Lalo Carter on 04-25-2024 Protein [Mass/Vol] 6.4 g/dL Normal 6.4-8.9 [facility] Comment on above: Order Comment: FASTI NG Y Performed By: #### M G, LIPID, A1C WTH eA, BMP, HEPATIC #### [facility] [address] Prothrombin time (PT)Ordered By: Lalo Carter on 04-25-2024 PT Coag (PPP) [Time] 12.9 s Normal 9.0-12.9 [facility] Comment on above: A hematocrit value g reater than 55% may lead to inaccurate results in coagulation testing. Patients having hematocrit values >55% require a special collection tube for coagulation studies. Please contact the laboratory at [phone] for redraw instructions. Result Comment: A he matocrit value greater than 55% may lead to inaccurate results in coagulation testing. Patients having hematocrit values >55% require a special collection tube for coagulation studies. Please contact the laboratory at [phone] for redraw instructions. Performed By: #### M G, LIPID, A1C WTH eA, BMP, HEPATIC #### [facility] [address] Serum globulin measurement b y calculation (mass/volume)Ordered By: Lalo Carter on 04-25-2024 Globulin (S) [Mass/Vol] 3.3 g/dL [facility] Comment on above: Order Comment: FASTI NG Y Performed By: #### M G, LIPID, A1C WTH eA, BMP, HEPATIC #### [facility] [address] Serum or plasma albumin/glob ulin mass ratioOrdered By: Lalo Carter on 04-25-2024 Albumin/Globulin [Mass ratio] 0.9 {ratio} [facility] Comment on above: Order Comment: FASTI NG Y Performed By: #### M G, LIPID, A1C WTH eA, BMP, HEPATIC #### [facility] [address] [place] [address] Serum or plasma anion gap de terminationOrdered By: Lalo Carter on 04-25-2024 Anion gap [Moles/Vol] 10.9 mmol/L Normal 6.0-15.0 [facility] Comment on above: Order Comment: BETSEY Blackburn Performed By: #### M G, LIPID, A1C WTH eA, BMP, HEPATIC #### [facility] [address] Serum or plasma high density lipoprotein (HDL) cholesterol measurementOrdered By: Lalo Carter on 04-25-2024 Cholesterol in HDL [Mass/Vol] 34 mg/dL Normal 23-92 [facility] Comment on above: HDL CHOL ATP-III CLA SSIFICATION Cardiovascular RiskHDL > or equal to 60 mg/dL LOWHDL < 40 mg/dL HIGH Order Comment: BETSEY Blackburn Result Comment: HDL CHOL ATP-III CLASSIFICATION Cardiovascular Risk HDL > or equal to 60 mg/dL LOW HDL < 40 mg/dL HIGH Performed By: #### M Marlena, LIPID, A1C WT eA, BMP, HEPATIC #### [facility] [address] Serum or plasma non-glucuron idated bilirubin measurement (mass/volume)Ordered By: Lalo Carter on 04-25-2024 Bilirubin.indirect [Mass/Vol] 0.4 mg/dL [facility] Serum or plasma total choles terol/high density lipoprotein (HDL) cholesterol mass ratOrdered By: Lalo Carter on 04-25-2024 Cholesterol.total/Cho lesterol in HDL [Mass ratio] 2.6 {ratio} Normal <5.0 [facility] Comment on above: Order Comment: BETSEY Blackburn Result Comment: PERF ORMED BY: [place] [address] PATHOLOGIST IT PROFESSIONAL ALVARO LEWIS M.D. Performed By: #### M G, LIPID, A1C WTH eA, BMP, HEPATIC #### [facility] [address] Sodium [Moles/volume] in Ser um or PlasmaOrdered By: Lalo Carter on 10-18-2024 Sodium [Moles/Vol] 138 mmol/L Normal 136-145 [facility] Comment on above: Order Comment: FASTI NG Y Performed By: #### M G, LIPID, A1C WTH eA, BMP, HEPATIC #### [facility] [address] Triglyceride [Mass/volume] i n Serum or PlasmaOrdered By: Lalo Carter on 04-25-2024 Triglyceride [Mass/Vol] 92 mg/dL 0-149 [facility] Comment on above: TRIG ATP III CLASSIF ICATIONTRIG less than 150 mg/dL NormalTRIG 150-199 mg/dL Borderline highTRIG 200-500 mg/dL High TRIG greater than 500 mg/dL Very highStandard traceable to the Center for Disease Conrtrol and Prevention (CDC) test method. Troponin I High Sensitivityo n 04-25-2024 Troponin I High Sensitivity 18.1 pg/mL High 0.0-15.0 [facility] Comment on above: Result Comment: PERF ORMED BY: [place] [address] PATHOLOGIST IT PROFESSIONAL ALVARO LEWIS M.D. Performed By: #### M G, LIPID, A1C WT eA, BMP, HEPATIC #### [facility] [address] Troponin I High Sensitivity 19.5 pg/mL High 0.0-15.0 [facility] Comment on above: Result Comment: PERF ORMED BY: [place] [address] PATHOLOGIST IT PROFESSIONAL ALVARO LEWIS M.D. Performed By: #### M G, LIPID, A1C WTH eA, BMP, HEPATIC #### [facility] [address] Troponin I.cardiac [Mass/vol ume] in Serum or Plasma by Detection limit <= 0.01 ng/Ordered By: Lalo Carter on 04-25-2024 Troponin I.cardiac DL <= 0.01 ng/mL [Mass/Vol] 18.1 pg/mL High 0.0-15.0 [facility] Urea nitrogen [Mass/volume] in Serum or PlasmaOrdered By: Lalo Carter on 04-25-2024 Urea nitrogen [Mass/Vol] 31 mg/dL High 01-30 [facility] Comment on above: Order Comment: BETSEY Blackburn Performed By: #### M G, LIPID, A1C WTH eA, BMP, HEPATIC #### [facility] [address] Office Visiton 01-07-2024 Follow-up visit [id number] Jenni Quinones 1940 F Date Provider Department Center 01/07/2024 JOSEFINA STEIN SYMONE Stark Family History Problem Relation Age of Onset Diabetes Father Heart failure Father Other Other Family Status - Relation Status Age at Father Other Level of Service:[address] [place] OFFICE/OUTPATIENT ESTABLISHED MOD MDM 30 MIN [facility] 37on 12-07-2023 37 Have blood drawn [...] taller/more pillows than normal or in recliner. [facility] Office Visiton 12-07-2023 Follow-up visit [id number] Jenni Quinones 1940 F Date Provider Department Center 12/07/2023 FARZANEH PERSAUD Family History Problem Relation Age of Onset Diabetes Father Heart failure Father Other Other Family Status - Relation Status Age at Father Other Level of Service:[address] [place] OFFICE/OUTPATIENT ESTABLISHED MOD MDM 30 MIN [facility] 36on 11-16-2023 36 Regarding echo perfo rmed on 10/23/2023: MD Mariaa Fernandes MA; Farzaneh Arndt NP [place], she sees you soon, echo is consistent with volume overload, I could consider intensification of diuretics before determining the need for FARA Normal [facility] XR COMPARISON OF OUTSIDE HIRAL MSon 08-07-2023 XR COMPARISON OF OUTSIDE FILMS RADRPT There is no result for this study. This is a placeholder for comparison films only. Final result Normal [facility] XR COMPARISON OF OUTSIDE HIRAL MSon 05-29-2023 XR COMPARISON OF OUTSIDE FILMS RADRPT There is no result for this study. This is a placeholder for comparison films only. Final result Normal [facility] FLUORO FOR SURGICAL PROCEDUR ESon 05-09-2023 FLUORO FOR SURGICAL PROCEDURES RADRPT Radiology exam is complete. No Radiologist dictation. Please follow up with ordering provider. Final result Normal [facility] SURGICALon 05-09-2023 SURGICAL [place] [facility] JENNI QUINONES [id number] Assoc. Page 1 of [address] [place] [address] PROC: 05/09/2023 [facility] RECV: 05/11/[address] RPTD: 05/16/2023 [place] [address] LOC: [facility] ACCT: [id number] SEX: F : 1940 AGE: 83 Y [...] negative. The CD138 demonstrates scattered plasma cells. [place] and lambda surface immunoglobulin light chain LALO is performed with adequate controls. The kappa and lambda stains demonstrate a polytypic plasma cell population. Overall, there is no evidence of an atypical infiltrate. Malignancy is not identified. *This test was developed and its performance characteristics determined by [facility]. It has not been cleared or approved by the U.S. Food and Drug Administration. Pursuant to the requirements of CLIA, this laboratory has established and verified the test's accuracy and precision. Additional information about this type of test is available upon request. [id number] [phone] INDY PLATT M.D., F.C.A.P. 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 Page 1 of 1\X0D0A\[address]\X0D0A\[place] [address]\X0D0A\ PROC: 05/09/2023\X0D0A\[facility] RECV: 05/11/2023\X0D0A\[address] RPTD: 05/16/2023\X0D0A\[place] [address]\X0D0A\ LOC: [facility]\X0D0A\ ACCT: [id number] SEX: F\X0D0A\ : 1940 AGE: 83 Y\X0D0A\X0D0A\ [...] negative. The CD138 demonstrates scattered plasma cells. [place] and\X0D0A\lambda surface immunoglobulin light chain LALO is performed with\X0D0A\adequate controls. The kappa and lambda stains demonstrate a polytypic\X0D0A\plasma cell population. Overall, there is no evidence of an atypical\X0D0A\infiltrate. Malignancy is not identified.\X0D0A\X0D0A\*This test was developed and its performance characteristics determined\X0D0A\by [facility]. It has not been cleared or\X0D0A\approved by the U.S. Food and Drug Administration. Pursuant to the\X0D0A\requirements of CLIA, this laboratory has established and verified the\X0D0A\test's accuracy and precision. Additional information about this type\X0D0A\of test is available upon request.\X0D0A\X0D0A\82447\X0D0A\72824\X0D0A\85607 x 3\X0D0A\74717\X0D0A\24416\X0D0A\X0D0A\X0D0A\X0D0A\ \X0D0A\ INDY PLATT M.D., F.C.A.P.\X0D0A\X0D0A\X0D0A\[facility]/ [facility] Printed on: 05/16/2023\X0D0A\[address]\X0D0A\[place], [place] [address]\X0D0A\Original print date: 05/16/2023 Performed By: #### 1 [id number] #### [facility] See Report DIGOXINon 12-06-2022 DIG <0.2 Critically low 0.9-2.0 The [facility] Comment on above: Performed By: #### B LDCX2 #### [facility] [address] [place], [place] [address] Dr. Lisa Martinez PROF CHEM 8 (BAS METB)on Anion gap [Moles/Vol] 9.6 mmol/L Normal [facility] Comment on above: Performed By: #### T SHRFT4, BMP ####[facility] [address] [place] [address]Dr. Lisa Martinez Calcium [Mass/Vol] 9.0 mg/dL Normal 8.5-10.1 [facility] Comment on above: Performed By: #### T SHRFT4, BMP ####[facility] [address] [place], [place] [address]Dr. Lisa Martinez Chloride [Moles/Vol] 103 mmol/L Normal 98-107 [facility] Comment on above: Performed By: #### T SHRFT4, BMP ####[facility] [address] [place], [place] [address]Dr. Lisa Martinez CO2 [Moles/Vol] 33.4 mmol/L Critically high 21.0-32.0 [facility] Comment on above: Performed By: #### T ALFRED4, BMP ####[facility] [address] [place], [place] [address]Dr. Lisa Martinez Creatinine [Mass/Vol] 1.69 mg/dL Critically high 0.55-1.02 [facility] Comment on above: Performed By: #### T ALFRED4, BMP ####[facility] [address] [place], [place] [address]Dr. Lisa Martinez EGFR-AF WALLISIAN 35 mL/min/1.73m2 Critically low >=60 [facility] Comment on above: Performed By: #### T ALFRED4, BMP ####[facility] [address] [place], [place] [address]Dr. Lisa Martinez EGFR-NON AF WALLISIAN 29 mL/min/1.73m2 Critically low >=60 [facility] Comment on above: Performed By: #### T ALFRED4, BMP ####[facility] [address] [place], [place] [address]Dr. Lisa Martinez Glucose [Mass/Vol] 72 mg/dL Critically low 74-106 [facility] Comment on above: Performed By: #### T SUPRIYAFT4, BMP ####[facility] [address] [place], [place] [address]Dr. Lisa Martinez Potassium [Moles/Vol] 4.0 mmol/L Normal 3.5-5.1 [facility] Comment on above: Performed By: #### T ALFRED4, BMP ####[facility] [address] [place] [address]Dr. Lisa Martinez Sodium [Moles/Vol] 142 mmol/L Normal 136-145 [facility] Comment on above: Performed By: #### T ALFRED4, BMP ####[facility] [address] [place] [address]Dr. Lisa aMrtinez Urea nitrogen [Mass/Vol] 42.0 mg/dL Critically high 7.0-18.0 [facility] Comment on above: Performed By: #### T ALFRED4, BMP ####[facility] [address] [place] [address]Dr. Lisa Martinez Urea nitrogen/Creatinine [Mass ratio] 24.9 mg/mg Normal [facility] Comment on above: Performed By: #### T KELLEY, BMP ####[facility] [address] [place] [address]Dr. Lisa Martinez TSH W/ REFLEX TO FT4on 12-06 TSH 2.427 uIU/mL Normal 0.358-3.740 [facility] Comment on above: Performed By: #### T ALFRED4, BMP ####[facility] [address] [place] [address]Dr. Lisa Martinez BNPon 11-15-2022 Natriuretic peptide B (Bld) [Mass/Vol] 6134.0 pg/mL Critically high <=1,800.0 [facility] Comment on above: Performed By: #### B METAL FURNITURE POLISHER, CMP, MG ####[facility] [address] [place] [address]DrIngrid Martinez CBC AUTO DIFFon 11-15-2022 BASO # 0.0 103/ul Normal 0.0-0.1 [facility] Comment on above: Performed By: #### K U #### [facility] [address] [place] [address] [address] Yilan Martinez Basophils/100 WBC (Bld) 0.6 % Normal 0.2-2.0 [facility] Comment on above: Performed By: #### K U #### [facility] [address] [place] [address] Dr. Lisa Martinez EO # 0.2 103/ul Normal 0.0-0.7 [facility] Comment on above: Performed By: #### K U #### [facility] [address] [place] [address] Dr. Lisa Martinez Eosinophils/100 WBC (Bld) 2.9 % Normal 0.9-7.0 [facility] Comment on above: Performed By: #### K U #### [facility] [address] [place] [address] Dr. Lisa Martinez Erythrocyte distribution width (RBC) [Ratio] 14.9 % Normal 11.0-15.0 [facility] Comment on above: Performed By: #### K U #### [facility] [address] [place] [address] Dr. Lisa Martinez Hematocrit (Bld) [Volume fraction] 31.9 % Critically low 36.0-48.0 [facility] Comment on above: Performed By: #### K U #### [facility] [address] [place] [address] Dr. Lisa Martinez Hemoglobin (Bld) [Mass/Vol] 9.8 g/dL Critically low 12.0-16.0 [facility] Comment on above: Performed By: #### K U #### [facility] [address] [place] [address] Dr. Lisa Martinez IG # 0.02 10e3/ul Normal 0.00-0.03 [facility] Comment on above: Performed By: #### K U #### [facility] [address] [place] [address] Dr. Lisa Martinez IG % 0.3 % Normal 0.0-0.5 [facility] Comment on above: Performed By: #### K U #### [facility] [address] [place] [address] Dr. Lisa Martinez LYMPH # 0.7 103/ul Critically low 1.2-3.8 [facility] Comment on above: Performed By: #### K U #### [facility] [address] [place] [address] Dr. Lisa Martinez Lymphocytes/100 WBC (Bld) 10.9 % Critically low 20.5-60.0 [facility] Comment on above: Performed By: #### K U #### [facility] [address] [place] [address] Dr. Lisa Martinez MANUAL DIFF REQ NO Normal [facility] Comment on above: Performed By: #### K U #### [facility] [address] [place] [address] Dr. Lisa Martinez MCH (RBC) [Entitic mass] 29.1 pg Normal 26.7-34.0 [facility] Comment on above: Performed By: #### K U #### [facility] [address] [place] [address] Dr. Lisa Martinez MCHC (RBC) [Mass/Vol] 30.7 g/dL Normal 29.9-35.2 [facility] Comment on above: Performed By: #### K U #### [facility] [address] [place] [address] Dr. Lisa Martinez MCV (RBC) [Entitic vol] 94.7 fL Normal 81.0-99.0 [facility] Comment on above: Performed By: #### K U #### [facility] [address] [place] [address] Dr. Lisa Martinez MONO # 0.8 103/ul Normal 0.3-0.8 [facility] Comment on above: Performed By: #### K U #### [facility] [address] [place] [address] Dr. Lisa Martinez Monocytes/100 WBC (Bld) 12.2 % Critically high 1.7-12.0 [facility] Comment on above: Performed By: #### K U #### [facility] [address] [place] [address] Dr. Lisa Martinez NEUT # 4.6 103/ul Normal 1.4-6.5 [facility] Comment on above: Performed By: #### K U #### [facility] [address] [place] [address] Dr. Lisa Martinez Neutrophils/100 WBC (Bld) 73.1 % Normal 43.0-75.0 [facility] Comment on above: Performed By: #### K U #### [facility] [address] [place] [address] Dr. Lisa Martinez Platelet mean volume (Bld) [Entitic vol] 10.2 fL Normal 9.5-13.5 [facility] Comment on above: Performed By: #### K U #### [facility] [address] [place] [address] Dr. Lisa Martinez PLT 186 103/ul Normal 150-450 [facility] Comment on above: Performed By: #### K U #### [facility] [address] [place] [address] Dr. Lisa Martinez RBC 3.37 106/ul Critically low 4.20-5.40 [facility] Comment on above: Performed By: #### K U #### [facility] [address] [place] [address] Dr. Lisa Martinez WBC 6.3 103/ul Normal 4.0-11.0 [facility] Comment on above: Performed By: #### K U #### [facility] [address] [place] [address] Dr. Lisa Martinez CHLORIDE URINE RANDOMon 11-06 Chloride, Urine 126 mmol/L Normal Not Estab. [facility] Comment on above: Performed By: #### B LDCX2 #### [facility] [address] [place] [address] Dr. Lisa Martinez CULTURE URINEon 11-15-2022 CULTURE [...] F Trimethoprim/Sulfamethoxa zole <=20 S F Normal [facility] Comment on above: Performed By: #### U RCX #### [facility] [address] [place] [address] [address] Lisa Martinez DIGOXINon 11-15-2022 DIG 0.3 ng/mL Critically low 0.9-2.0 [facility] Comment on above: Performed By: #### B METAL FURNITURE POLISHER, BMP #### [facility] [address] [place] [address] Dr. Lisa Martinez MAGNESIUMon 11-15-2022 Magnesium [Mass/Vol] 2.2 mg/dL Normal 1.8-2.4 [facility] Comment on above: Performed By: #### B METAL FURNITURE POLISHER, CMP, MG ####[facility] [address] [place] [address]DrIngrid Martinez POINT OF CARE GLUCOSEon 11-06 Glucose [Mass/Vol] 164 mg/dL Critically high 74-106 [facility] Comment on above: Performed By: #### C BC #### [facility] [address] [place] [address] [address] Lisa Martinez PROF 14(COMP METB)on 023 Albumin [Mass/Vol] 3.3 g/dL Critically low 3.4-5.0 [facility] Comment on above: Performed By: #### B METAL FURNITURE POLISHER, CMP, MG ####[facility] [address] [place] [address]DrIngrid Martinez Albumin/Globulin [Mass ratio] 0.7 {ratio} Normal [facility] Comment on above: Performed By: #### B METAL FURNITURE POLISHER, CMP, MG ####[facility] [address] [place] [address]DrIngrid Martinez ALP [Catalytic activity/Vol] 75 U/L Normal 46-116 [facility] Comment on above: Performed By: #### B METAL FURNITURE POLISHER, CMP, MG ####[facility] [address] [place] [address]Dr. Lisa Martinez ALT [Catalytic activity/Vol] 14 U/L Normal 14-59 [facility] Comment on above: Performed By: #### B METAL FURNITURE POLISHER, CMP, MG ####[facility] [address] [place] [address]Dr. Lisa Martinez Anion gap [Moles/Vol] 11.1 mmol/L Normal Th e [facility] Comment on above: Performed By: #### B METAL FURNITURE POLISHER, CMP, MG ####[facility] [address] [place] [address]Dr. Lisa Martinez AST [Catalytic activity/Vol] 14 U/L Critically low 15-37 [facility] Comment on above: Performed By: #### B METAL FURNITURE POLISHER, CMP, MG ####[facility] [address] [place], [place] [address]Dr. Lisa Martinez Bilirubin [Mass/Vol] 0.9 mg/dL Normal 0.2-1.0 [facility] Comment on above: Performed By: #### B METAL FURNITURE POLISHER, CMP, MG ####[facility] [address] [place] [address]Dr. Lisa Martinez Calcium [Mass/Vol] 9.1 mg/dL Normal 8.5-10.1 [facility] Comment on above: Performed By: #### B METAL FURNITURE POLISHER, CMP, MG ####[facility] [address] [place] [address]Dr. Lisa Martinez Chloride [Moles/Vol] 100 mmol/L Normal 98-107 [facility] Comment on above: Performed By: #### B METAL FURNITURE POLISHER, CMP, MG ####[facility] [address] [place] [address]Dr. Lisa Martinez CO2 [Moles/Vol] 32.6 mmol/L Critically high 21.0-32.0 [facility] Comment on above: Performed By: #### B METAL FURNITURE POLISHER, CMP, MG ####[facility] [address] [place] [id number]. Lisa Martinez Creatinine [Mass/Vol] 2.65 mg/dL Critically high 0.55-1.02 [facility] Comment on above: Performed By: #### B METAL FURNITURE POLISHER, CMP, MG ####[facility] [address] [place] [address]Dr. Lisa Martinez EGFR-AF WALLISIAN 21 mL/min/1.73m2 Critically low >=60 [facility] Comment on above: Performed By: #### B METAL FURNITURE POLISHER, CMP, MG ####[facility] [address] [place] [address]Dr. Lisa Juan EGFR-NON AF WALLISIAN 17 mL/min/1.73m2 Critically low >=60 [facility] Comment on above: Performed By: #### B METAL FURNITURE POLISHER, CMP, MG ####[facility] [address] [place] [address]Dr. Lisa Martinez Globulin (S) [Mass/Vol] 4.7 g/dL Normal [facility] Comment on above: Performed By: #### B METAL FURNITURE POLISHER, CMP, MG ####[facility] [address] [place] [address]Dr. Lisa Martinez Glucose [Mass/Vol] 131 mg/dL Critically high 74-106 [facility] Comment on above: Performed By: #### B METAL FURNITURE POLISHER, CMP, MG ####[facility] [address] [place] [address]Dr. Lisa Martinez Potassium [Moles/Vol] 3.7 mmol/L Normal 3.5-5.1 [facility] Comment on above: Performed By: #### B METAL FURNITURE POLISHER, CMP, MG ####[facility] [address] [place] [address]Dr. Lisa Martinez Protein [Mass/Vol] 8.0 g/dL Normal 6.4-8.2 [facility] Comment on above: Performed By: #### B METAL FURNITURE POLISHER, CMP, MG ####[facility] [address] [place] [address]Dr. Lisa Martinez Sodium [Moles/Vol] 140 mmol/L Normal 136-145 [facility] Comment on above: Performed By: #### B METAL FURNITURE POLISHER, CMP, MG ####[facility] [address] [address]Dr. Lisa Martinez Urea nitrogen [Mass/Vol] 66.0 mg/dL Critically high 7.0-18.0 [facility] Comment on above: Performed By: #### B METAL FURNITURE POLISHER, CMP, MG ####[facility] [address] [address]Dr. Lisa Martinez Urea nitrogen/Creatinine [Mass ratio] 24.9 mg/mg Normal [facility] Comment on above: Performed By: #### B METAL FURNITURE POLISHER, CMP, MG ####[facility] [address] [place], [place] [address]Dr. Lisa Martinez UREA NITROGEN, RANDOM URon 0 11-15-2022 Urea Nitrogen, Urine 165 mg/dL Normal Not Estab. [facility] Comment on above: Performed By: #### U NR ####[facility] [address] [place], [place] [address]Dr. Lisa Martinez BNPon 11-14-2022 Natriuretic peptide B (Bld) [Mass/Vol] 8525.0 pg/mL Critically high <=1,800.0 [facility] Comment on above: Performed By: #### B METAL FURNITURE POLISHER ####[facility] [address] [place], [place] [address]Dr. Lisa Martinez CBC AUTO DIFFon 11-14-2022 BASO # 0.0 103/ul Normal 0.0-0.1 [facility] Comment on above: Performed By: #### C VDTBH #### [facility] [address] [place] [address] Dr. Lisa Martinez Basophils/100 WBC (Bld) 0.5 % Normal 0.2-2.0 [facility] Comment on above: Performed By: #### C VDTBH #### [facility] [address] [place] [address] Dr. Lisa Martinez EO # 0.2 103/ul Normal 0.0-0.7 [facility] Comment on above: Performed By: #### C VDTBH #### [facility] [address] [place] [address] Dr. Lisa Martinez Eosinophils/100 WBC (Bld) 3.4 % Normal 0.9-7.0 [facility] Comment on above: Performed By: #### C VDTBH #### [facility] [address] [place] [address] Dr. Lisa Martinez Erythrocyte distribution width (RBC) [Ratio] 14.9 % Normal 11.0-15.0 [facility] Comment on above: Performed By: #### C VDTBH #### [facility] [address] [place] [address] Dr. Lisa Martinez Hematocrit (Bld) [Volume fraction] 31.3 % Critically low 36.0-48.0 [facility] Comment on above: Performed By: #### C VDTBH #### [facility] [address] [place] [address] Dr. Lisa Martinez Hemoglobin (Bld) [Mass/Vol] 9.4 g/dL Critically low 12.0-16.0 [facility] Comment on above: Performed By: #### C VDTBH #### [facility] [address] [place] [address] Dr. Lisa Martinez IG # 0.01 10e3/ul Normal 0.00-0.03 [facility] Comment on above: Performed By: #### C VDTBH #### [facility] [address] [place] [address] Dr. Lisa Martinez IG % 0.2 % Normal 0.0-0.5 [facility] Comment on above: Performed By: #### C VDTBH #### [facility] [address] [place] [address] Dr. Lisa Martinez LYMPH # 0.9 103/ul Critically low 1.2-3.8 [facility] Comment on above: Performed By: #### C VDTBH #### [facility] [address] [place] [address] Dr. Lisa Martinez Lymphocytes/100 WBC (Bld) 15.2 % Critically low 20.5-60.0 [facility] Comment on above: Performed By: #### C VDTBH #### [facility] [address] [place] [address] Dr. Lisa Martinez MANUAL DIFF REQ NO Normal [facility] Comment on above: Performed By: #### C VDTBH #### [facility] [address] [place] [address] Dr. Lisa Martinez MCH (RBC) [Entitic mass] 29.0 pg Normal 26.7-34.0 [facility] Comment on above: Performed By: #### C VDTBH #### [facility] [address] [place] [address] Dr. Lisa Martinez MCHC (RBC) [Mass/Vol] 30.0 g/dL Normal 29.9-35.2 [facility] Comment on above: Performed By: #### C VDTBH #### [facility] [address] [place] [address] Dr. Lisa Martinez MCV (RBC) [Entitic vol] 96.6 fL Normal 81.0-99.0 [facility] Comment on above: Performed By: #### C VDTBH #### [facility] [address] [place] [address] Dr. Lisa Martinez MONO # 0.6 103/ul Normal 0.3-0.8 [facility] Comment on above: Performed By: #### C VDTBH #### [facility] [address] [place] [address] Dr. Lisa Martinez Monocytes/100 WBC (Bld) 10.2 % Normal 1.7-12.0 [facility] Comment on above: Performed By: #### C VDTBH #### [facility] [address] [place] [address] Dr. Lisa Martinez NEUT # 4.0 103/ul Normal 1.4-6.5 [facility] Comment on above: Performed By: #### C VDTBH #### [facility] [address] [place] [address] Dr. Lisa Martinez Neutrophils/100 WBC (Bld) 70.5 % Normal 43.0-75.0 [facility] Comment on above: Performed By: #### C VDTBH #### [facility] [address] [place] [address] Dr. Lisa Martinez Platelet mean volume (Bld) [Entitic vol] 10.3 fL Normal 9.5-13.5 [facility] Comment on above: Performed By: #### C VDTBH #### [facility] [address] [place] [address] Dr. Lisa Martinez PLT 192 103/ul Normal 150-450 [facility] Comment on above: Performed By: #### C VDTBH #### [facility] [address] [place] [address] Dr. Lisa Martinez RBC 3.24 106/ul Critically low 4.20-5.40 [facility] Comment on above: Performed By: #### C VDTBH #### [facility] [address] [place] [address] Dr. Lisa Martinez WBC 5.7 103/ul Normal 4.0-11.0 [facility] Comment on above: Performed By: #### C VDTBH #### [facility] [address] [place] [address] Dr. Lisa Martinez D-DIMERon 11-14-2022 D-DIMER 0.82 mg/L FEU Critically high <=0.59 [facility] Comment on above: Performed By: #### B METAL FURNITURE POLISHER, BMP #### [facility] [address] [place] [address] Dr. Lisa Martinez D-DIMER COMMENTS SEE BELOW Normal [facility] Comment on above: Result Comment: Incr eases [...] and generalized hospitalization. Performed By: #### B METAL FURNITURE POLISHER, BMP #### [facility] [address] [address] [address] Lisa Martinez ECHO LIMITED STUDYon 023 ECHO LIMITED STUDY Patient: RUSZULA QUINONES Exam Date: 11/14/2022 : 1940 Gender:F Ordering : DR ROBERTO ZIMMERMAN . Admission #: [id number] Family : Order #: [id number] CLICK HERE TO VIEW EXAM ECHOCARDIOGRAM REPORT [...] Marley M.D. on 11/14/2022 at 16:43 Normal [facility] MAGNESIUMon 11-14-2022 Magnesium [Mass/Vol] 2.3 mg/dL Normal 1.8-2.4 [facility] Comment on above: Performed By: #### U RCX #### [facility] [address] [address] [address] Lisa Martinez NM LUNG VENT_PERFon 11-15-19 [...] SADIE GARCIA Date: 2022-11-14 19:11 Normal [facility] OCC BLD IMMUNO SCREENon OCCULT BLOOD Negative Normal NEGATIVE [facility] Comment on above: Performed By: #### B LDCX2 #### [facility] [address] [address] [address] Lisa Martinez POINT OF CARE GLUCOSEon Glucose [Mass/Vol] 155 mg/dL Critically high 74-106 [facility] Comment on above: Performed By: #### P OCGLUC ####[facility] [address] [address]Dr. Lisa Martinez Glucose [Mass/Vol] 148 mg/dL Critically high 74-106 [facility] Comment on above: Performed By: #### B LDCX2 #### [facility] [address] [address] [address] Lisa Martinez Glucose [Mass/Vol] 76 mg/dL Normal 74-106 [facility] Comment on above: Performed By: #### B LDCX2 #### [facility] [address] [address] [address] Lisa Martinez POTASSIUM URINEon 11-14-2022 UR POTASSIUM 21.3 mmol/L Normal [facility] Comment on above: Performed By: #### K U #### [facility] [address] [place] [address] Dr. Lisa Martinez PROF 14(COMP METB)on 023 Albumin [Mass/Vol] 3.3 g/dL Critically low 3.4-5.0 [facility] Comment on above: Performed By: #### U RCX #### [facility] [address] [place] [address] Dr. Lisa Martinez Albumin/Globulin [Mass ratio] 0.7 {ratio} Normal [facility] Comment on above: Performed By: #### U RCX #### [facility] [address] [place] [address] Dr. Lisa Martinez ALP [Catalytic activity/Vol] 72 U/L Normal 46-116 [facility] Comment on above: Performed By: #### U RCX #### [facility] [address] [place] [address] Dr. Lisa Martinez ALT [Catalytic activity/Vol] 16 U/L Normal 14-59 [facility] Comment on above: Performed By: #### U RCX #### [facility] [address] [place] [address] Dr. Lisa Martinez Anion gap [Moles/Vol] 13.0 mmol/L Normal [facility] Comment on above: Performed By: #### U RCX #### [facility] [address] [place] [address] Dr. Lisa Martinez AST [Catalytic activity/Vol] 13 U/L Critically low 15-37 [facility] Comment on above: Performed By: #### U RCX #### [facility] [address] [address] [address] Lisa Martinez Bilirubin [Mass/Vol] 0.8 mg/dL Normal 0.2-1.0 [facility] Comment on above: Performed By: #### U RCX #### [facility] [address] [address] [address] Lisa Martinez Calcium [Mass/Vol] 9.0 mg/dL Normal 8.5-10.1 [facility] Comment on above: Performed By: #### U RCX #### [facility] [address] [place] [address] Dr. Lisa Martinez Chloride [Moles/Vol] 100 mmol/L Normal 98-107 [facility] Comment on above: Performed By: #### U RCX #### [facility] [address] [address] [address] Lisa Martinez CO2 [Moles/Vol] 30.0 mmol/L Normal 21.0-32.0 [facility] Comment on above: Performed By: #### U RCX #### [facility] [address] [place] [address] Dr. Lisa Martinez Creatinine [Mass/Vol] 2.79 mg/dL Critically high 0.55-1.02 [facility] Comment on above: Performed By: #### U RCX #### [facility] [address] [place] [address] Dr. Lisa Martinez EGFR-AF WALLISIAN 20 mL/min/1.73m2 Critically low >=60 [facility] Comment on above: Performed By: #### U RCX #### [facility] [address] [address] [address] Lisa Martinez EGFR-NON AF WALLISIAN 16 mL/min/1.73m2 Critically low >=60 [facility] Comment on above: Performed By: #### U RCX #### [facility] [address] [place] [address] Dr. Lisa Martinez Globulin (S) [Mass/Vol] 4.6 g/dL Normal [facility] Comment on above: Performed By: #### U RCX #### [facility] [address] [address] [address] Lisa Martinez Glucose [Mass/Vol] 153 mg/dL Critically high 74-106 [facility] Comment on above: Performed By: #### U RCX #### [facility] [address] [address] [address] Lisa Martinez Potassium [Moles/Vol] 4.0 mmol/L Normal 3.5-5.1 [facility] Comment on above: Performed By: #### U RCX #### [facility] [address] [place] [address] Dr. Lisa Martinez Protein [Mass/Vol] 7.9 g/dL Normal 6.4-8.2 [facility] Comment on above: Performed By: #### U RCX #### [facility] [address] [place] [address] Dr. Lisa Martinez Sodium [Moles/Vol] 139 mmol/L Normal 136-145 [facility] Comment on above: Performed By: #### U RCX #### [facility] [address] [place] [address] Dr. Lisa Martinez Urea nitrogen [Mass/Vol] 67.0 mg/dL Critically high 7.0-18.0 [facility] Comment on above: Performed By: #### U RCX #### [facility] [address] [place] [address] Dr. Lisa Martinez Urea nitrogen/Creatinine [Mass ratio] 24.0 mg/mg Normal [facility] Comment on above: Performed By: #### U RCX #### [facility] [address] [place] [address] Dr. Lisa Martinez SODIUM RANDOM URINEon 2022 Sodium (U) [Moles/Vol] 122 mmol/L Critically high 30-90 [facility] Comment on above: Performed By: #### B METAL FURNITURE POLISHER, BMP #### [facility] [address] [address] [address] Lisa Martinez T3, TOTAL (TRIIODOTHYRONINE) on 11-14-2022 T3, TOTAL 84 ng/dL Normal 71-180 [facility] Comment on above: Performed By: #### U RCX #### [facility] [address] [address] [address] Lisa Martinez BNPon 11-13-2022 Natriuretic peptide B (Bld) [Mass/Vol] 79216.0 pg/mL Critically high <=1,800.0 [facility] Comment on above: Performed By: #### B MP, HSTROPN, BNP ####[facility] [address] [address]Dr. Lisa Martinez CARDIAC DONY 3-6on 3 CK [Catalytic activity/Vol] 60 U/L Normal 26-192 [facility] Comment on above: Performed By: #### C MREP ####[facility] [address] [address]Dr. Lisa Martinez CK.MB [Mass/Vol] 0.96 ng/mL Normal <=3.60 [facility] Comment on above: Performed By: #### C MREP ####[facility] [address] [address]Dr. Lisa Martinez HSTROP 16.3 pg/mL Normal 4.0-51.3 [facility] Comment on above: Result Comment: CUT- OFF POINTS HAVE BEEN ESTABLISHED BASED ON THE FOURTH UNIVERSAL DEFINITIONS OF MYOCARDIAL INFARCTION. THE UPPER REFERENCE LIMIT (URL) OF TROPONIN, DEFINED THE 99TH PERCENTILE OF cTnI DISTRIBUTION IN A REFERENCE POPULATION, HAS BEEN CONFIRMED THE DECISION THRESHOLD FOR MA DIAGNOSIS. Performed By: #### C MREP ####[facility] [address] [address]Dr. Lisa Martinez CK [Catalytic activity/Vol] 60 U/L Normal 26-192 [facility] Comment on above: Performed By: #### C BC #### [facility] [address] [address] [address] Lisa Martinez CK.MB [Mass/Vol] 0.94 ng/mL Normal <=3.60 [facility] Comment on above: Performed By: #### C BC #### [facility] [address] [place] [address] Dr. Lisa Martinez HSTROP 15.1 pg/mL Normal 4.0-51.3 [facility] Comment on above: Result Comment: CUT- OFF POINTS HAVE BEEN ESTABLISHED BASED ON THE FOURTH UNIVERSAL DEFINITIONS OF MYOCARDIAL INFARCTION. THE UPPER REFERENCE LIMIT (URL) OF TROPONIN, DEFINED THE 99TH PERCENTILE OF cTnI DISTRIBUTION IN A REFERENCE POPULATION, HAS BEEN CONFIRMED THE DECISION THRESHOLD FOR [place] DIAGNOSIS. Performed By: #### C BC #### [facility] [address] [place] [address] Dr. Lisa Martinez CBC AUTO DIFFon 11-13-2022 BASO # 0.1 103/ul Normal 0.0-0.1 [facility] Comment on above: Performed By: #### C BC #### [facility] [address] [place] [address] Dr. Lisa Martinez Basophils/100 WBC (Bld) 0.6 % Normal 0.2-2.0 [facility] Comment on above: Performed By: #### C BC #### [facility] [address] [place] [address] Dr. Lisa Martinez EO # 0.2 103/ul Normal 0.0-0.7 [facility] Comment on above: Performed By: #### C BC #### [facility] [address] [place] [address] Dr. Lisa Martinez Eosinophils/100 WBC (Bld) 1.8 % Normal 0.9-7.0 [facility] Comment on above: Performed By: #### C BC #### [facility] [address] [place] [address] Dr. Lisa Martinez Erythrocyte distribution width (RBC) [Ratio] 15.0 % Normal 11.0-15.0 [facility] Comment on above: Performed By: #### C BC #### [facility] [address] [place] [address] Dr. Lisa Martinez Hematocrit (Bld) [Volume fraction] 32.9 % Critically low 36.0-48.0 [facility] Comment on above: Performed By: #### C BC #### [facility] [address] [place] [address] Dr. Lisa Martinez Hemoglobin (Bld) [Mass/Vol] 9.8 g/dL Critically low 12.0-16.0 [facility] Comment on above: Performed By: #### C BC #### [facility] [address] [place] [address] Dr. Lisa Martinez IG # 0.02 10e3/ul Normal 0.00-0.03 [facility] Comment on above: Performed By: #### C BC #### [facility] [address] [place] [address] Dr. Lisa Martinez IG % 0.2 % Normal 0.0-0.5 [facility] Comment on above: Performed By: #### C BC #### [facility] [address] [place] [address] Dr. Lisa Martinez LYMPH # 0.7 103/ul Critically low 1.2-3.8 [facility] Comment on above: Performed By: #### C BC #### [facility] [address] [place] [address] Dr. Lisa Martinez Lymphocytes/100 WBC (Bld) 7.8 % Critically low 20.5-60.0 [facility] Comment on above: Performed By: #### C BC #### [facility] [address] [place] [address] Dr. Lisa Martinez MANUAL DIFF REQ NO Normal [facility] Comment on above: Performed By: #### C BC #### [facility] [address] [place] [address] Dr. Lisa Martinez MCH (RBC) [Entitic mass] 29.4 pg Normal 26.7-34.0 [facility] Comment on above: Performed By: #### C BC #### [facility] [address] [place] [address] Dr. Lisa Martinez MCHC (RBC) [Mass/Vol] 29.8 g/dL Critically low 29.9-35.2 [facility] Comment on above: Performed By: #### C BC #### [facility] [address] [address] [address] Lisa Martinez MCV (RBC) [Entitic vol] 98.8 fL Normal 81.0-99.0 [facility] Comment on above: Performed By: #### C BC #### [facility] [address] [address] [address] Lisa Martinez MONO # 0.7 103/ul Normal 0.3-0.8 [facility] Comment on above: Performed By: #### C BC #### [facility] [address] [address] [address] Lisa Martinez Monocytes/100 WBC (Bld) 7.6 % Normal 1.7-12.0 [facility] Comment on above: Performed By: #### C BC #### [facility] [address] [address] [address] Lisa Martinez NEUT # 7.0 103/ul Critically high 1.4-6.5 [facility] Comment on above: Performed By: #### C BC #### [facility] [address] [address] [address] Lisa Martinez Neutrophils/100 WBC (Bld) 82.0 % Critically high 43.0-75.0 [facility] Comment on above: Performed By: #### C BC #### [facility] [address] [address] [address] Lisa Martinez Platelet mean volume (Bld) [Entitic vol] 10.6 fL Normal 9.5-13.5 [facility] Comment on above: Performed By: #### C BC #### [facility] [address] [address] [address] Lisa Martinez PLT 209 103/ul Normal 150-450 [facility] Comment on above: Performed By: #### C BC #### [facility] [address] [address] [address] Lisa Martinez RBC 3.33 106/ul Critically low 4.20-5.40 [facility] Comment on above: Performed By: #### C BC #### [facility] [address] [address] [address] Lisa Martinez WBC 8.6 103/ul Normal 4.0-11.0 [facility] Comment on above: Performed By: #### C BC #### [facility] [address] [address] [address] Lisa Martinez LACTATE/LACTIC ACIDon 2022 Lactate [Moles/Vol] 3.4 mmol/L Critically high 0.4-2.0 [facility] Comment on above: Performed By: #### L ACT ####[facility] [address] [address]Dr. Lisa Martinez MAGNESIUMon 11-13-2022 Magnesium [Mass/Vol] 2.6 mg/dL Critically high 1.8-2.4 [facility] Comment on above: Performed By: #### B METAL FURNITURE POLISHER, BMP #### [facility] [address] [place] [address] Dr. Lisa Martinez PROF CHEM 8 (BAS METB)on Anion gap [Moles/Vol] 15.7 mmol/L Normal [facility] Comment on above: Performed By: #### C BC #### [facility] [address] [place] [address] Dr. Lisa Martinez Calcium [Mass/Vol] 9.1 mg/dL Normal 8.5-10.1 [facility] Comment on above: Performed By: #### C BC #### [facility] [address] [place] [address] Dr. Lisa Martinez Chloride [Moles/Vol] 103 mmol/L Normal 98-107 [facility] Comment on above: Performed By: #### C BC #### [facility] [address] [place] [address] Dr. Lisa Martinez CO2 [Moles/Vol] 27.2 mmol/L Normal 21.0-32.0 [facility] Comment on above: Performed By: #### C BC #### [facility] [address] [place] [address] Dr. Lisa Martinez Creatinine [Mass/Vol] 2.91 mg/dL Critically high 0.55-1.02 [facility] Comment on above: Performed By: #### C BC #### [facility] [address] [address] [address] Lisa Martinez EGFR-AF WALLISIAN 19 mL/min/1.73m2 Critically low >=60 [facility] Comment on above: Performed By: #### C BC #### [facility] [address] [address] [address] Lisa Martinez EGFR-NON AF WALLISIAN 15 mL/min/1.73m2 Critically low >=60 [facility] Comment on above: Performed By: #### C BC #### [facility] [address] [address] [address] Lisa Martinez Glucose [Mass/Vol] 172 mg/dL Critically high 74-106 [facility] Comment on above: Performed By: #### C BC #### [facility] [address] [address] [address] Lisa Martinez Potassium [Moles/Vol] 4.9 mmol/L Normal 3.5-5.1 [facility] Comment on above: Performed By: #### C BC #### [facility] [address] [address] [address] Lisa Martinez Sodium [Moles/Vol] 141 mmol/L Normal 136-145 [facility] Comment on above: Performed By: #### C BC #### [facility] [address] [address] [address] Lisa Martinez Urea nitrogen [Mass/Vol] 64.0 mg/dL Critically high 7.0-18.0 [facility] Comment on above: Performed By: #### C BC #### [facility] [address] [address] [address] Lisa Martinez Urea nitrogen/Creatinine [Mass ratio] 22.0 mg/mg Normal [facility] Comment on above: Performed By: #### C BC #### [facility] [address] [address] [address] Lisa Martinez Anion gap [Moles/Vol] 17.4 mmol/L Normal [facility] Comment on above: Performed By: #### B MP, HSTROPN, BNP ####[facility] [address] [address]Dr. Lisa Martinez Calcium [Mass/Vol] 9.1 mg/dL Normal 8.5-10.1 [facility] Comment on above: Performed By: #### B MP, HSTROPN, BNP ####[facility] [address] [address]Dr. Lisa Martinez Chloride [Moles/Vol] 104 mmol/L Normal 98-107 [facility] Comment on above: Performed By: #### B MP, HSTROPN, BNP ####[facility] [address] [place], [place] [address]Dr. Lisa Martinez CO2 [Moles/Vol] 26.9 mmol/L Normal 21.0-32.0 [facility] Comment on above: Performed By: #### B MP, HSTROPN, BNP ####[facility] [address] [place], [place] [address]Dr. Lisa Martinez Creatinine [Mass/Vol] 3.12 mg/dL Critically high 0.55-1.02 [facility] Comment on above: Performed By: #### B MP, HSTROPN, BNP ####[facility] [address] [address]Dr. Lisa Martinez EGFR-AF WALLISIAN 17 mL/min/1.73m2 Critically low >=60 [facility] Comment on above: Performed By: #### B MP, HSTROPN, BNP ####[facility] [address] [address]Dr. Lisa Martinez EGFR-NON AF WALLISIAN 14 mL/min/1.73m2 Critically low >=60 [facility] Comment on above: Performed By: #### B MP, HSTROPN, BNP ####[facility] [address] [address]Dr. Lisa Martinez Glucose [Mass/Vol] 131 mg/dL Critically high 74-106 [facility] Comment on above: Performed By: #### B MP, HSTROPN, BNP ####[facility] [address] [address]Dr. Lisa Martinez Potassium [Moles/Vol] 5.3 mmol/L Critically high 3.5-5.1 [facility] Comment on above: Performed By: #### B MP, HSTROPN, BNP ####[facility] [address] [address]Dr. Lisa Martinez Sodium [Moles/Vol] 143 mmol/L Normal 136-145 [facility] Comment on above: Performed By: #### B MP, HSTROPN, BNP ####[facility] [address] [address]Dr. Lisa Martinez Urea nitrogen [Mass/Vol] 59.0 mg/dL Critically high 7.0-18.0 [facility] Comment on above: Performed By: #### B MP, HSTROPN, BNP ####[facility] [address] [address]Dr. Lisa Martinez Urea nitrogen/Creatinine [Mass ratio] 18.9 mg/mg Normal [facility] Comment on above: Performed By: #### B MP, HSTROPN, BNP ####[facility] [address] [address]Dr. Lisa Martinez SYMPTOMATIC COVID-19 ANTIGEN on 11-13-2022 EUA Statement SEE BELOW Normal [facility] Comment on above: Result Comment: This [...] sooner. Performed By: #### C VDTBH #### [facility] [address] [address] [address] Lisa Martinez SARS-CoV-2 (COVID-19) RNA RACIEL+probe Ql (Unsp spec) Negative Normal NEGATIVE [facility] Comment on above: Performed By: #### C VDTBH #### [facility] [address] [address] [address] Lisa Martinez T4on 11-13-2022 T4 [Mass/Vol] 6.70 ug/dL Normal 4.80-13.90 [facility] Comment on above: Performed By: #### B METAL FURNITURE POLISHER, BMP #### [facility] [address] [place] [address] Dr. Lisa Martinez TROPONIN, HIGH SENSITIVITYon 11-13-2022 HSTROP 17.9 pg/mL Normal 4.0-51.3 [facility] Comment on above: Result Comment: CUT- OFF POINTS HAVE BEEN ESTABLISHED BASED ON THE FOURTH UNIVERSAL DEFINITIONS OF MYOCARDIAL INFARCTION. THE UPPER REFERENCE LIMIT (URL) OF TROPONIN, DEFINED THE 99TH PERCENTILE OF cTnI DISTRIBUTION IN A REFERENCE POPULATION, HAS BEEN CONFIRMED THE DECISION THRESHOLD FOR MA DIAGNOSIS. Performed By: #### B MP, HSTROPN, BNP ####[facility] [address] [address]Dr. Lisa Martinez TSHon 11-13-2022 TSH 5.233 uIU/mL Critically high 0.358-3.740 [facility] Comment on above: Performed By: #### B METAL FURNITURE POLISHER, BMP #### [facility] [address] [address] [address] Lisa Martinez UA RANDOM W/MICROSCOPICon BACTERIA SMALL Abnormal NONE SEEN The [facility] Comment on above: Performed By: #### K U #### [facility] [address] [address] [address] Lisa Martinez Bilirubin Ql (U) Negative Normal NEGATIVE [facility] Comment on above: Performed By: #### K U #### [facility] [address] [place] [address] Dr. Lisa Martinez CAST SEEN Abnormal NONE SEEN [facility] Comment on above: Performed By: #### K U #### [facility] [address] [place] [address] Dr. Lisa Martinez Clarity (U) CLEAR Normal CLEAR [facility] Comment on above: Performed By: #### K U #### [facility] [address] [place] [address] Dr. Lisa Martinez Color (U) LT. YELLOW Normal YELLOW [facility] Comment on above: Performed By: #### K U #### [facility] [address] [place] [address] Dr. Lisa Martinez Crystals LM Nom (Urine sed) NONE SEEN Normal NONE SEEN [facility] Comment on above: Performed By: #### K U #### [facility] [address] [place] [address] Dr. Lisa Martinez Epithelial cells LM Ql (Urine sed) FEW Abnormal NONE SEEN /RARE [facility] Comment on above: Performed By: #### K U #### [facility] [address] [place] [address] Dr. Lisa Martinez Glucose Ql (U) Negative Normal NEGATIVE [facility] Comment on above: Performed By: #### K U #### [facility] [address] [place] [address] Dr. Lisa Martinez Hemoglobin Ql (U) Negative Normal NEGATIVE [facility] Comment on above: Performed By: #### K U #### [facility] [address] [place] [address] Dr. Lisa Martinez HYALINE CAST FEW Normal [facility] Comment on above: Performed By: #### K U #### [facility] [address] [place] [address] Dr. Lisa Martinez Ketones Ql (U) Negative Normal NEGATIVE The [facility] Comment on above: Performed By: #### K U #### [facility] [address] [place] [address] Dr. Lisa Martinez LEUKOCYTES Negative Normal NEGATIVE [facility] Comment on above: Performed By: #### K U #### [facility] [address] [place] [address] Dr. Lisa Martinez MUCOUS NONE SEEN Normal NONE SEEN [facility] Comment on above: Performed By: #### K U #### [facility] [address] [place] [address] Dr. Lisa Martinez Nitrite Ql (U) Negative Normal NEGATIVE [facility] Comment on above: Performed By: #### K U #### [facility] [address] [place] [address] Dr. Lisa Martinez pH (U) 5.5 [pH] Normal 5-9 [facility] Comment on above: Performed By: #### K U #### [facility] [address] [place] [address] Dr. Lisa Martinez RBC NONE SEEN Abnormal 0-2 [facility] Comment on above: Performed By: #### K U #### [facility] [address] [place] [address] Dr. Lisa Martinez SPEC GRAVITY 1.010 Normal 1.005-<=1.0 25 [facility] Comment on above: Performed By: #### K U #### [facility] [address] [place] [address] Dr. Lisa Martinez UA PROTEIN Negative Normal NEGATIVE/ TRACE [facility] Comment on above: Performed By: #### K U #### [facility] [address] [place] [address] Dr. Lisa Martinez Urobilinogen Qn (U) 0.2 {Mike'U}/dL Normal 0.2 - 1. 0 [facility] Comment on above: Performed By: #### K U #### [facility] [address] [place] [address] Dr. Lisa Martinez WBC NONE SEEN Normal NONE SEEN [facility] Comment on above: Performed By: #### K U #### [facility] [address] [place] [address] Dr. Lisa Martinez US KIDNEYS BLADDERon 023 [...] by: Gela ARANDA Date: 2022-11-13 16:01 Normal [facility] XR CHEST 1 Von 11-13-2022 XR [...] by: MEENA WOOTEN Date: 2022-11-13 12:20 Normal [facility] PROF CHEM 8 (BAS METB)on Anion gap [Moles/Vol] 13.5 mmol/L Normal [facility] Comment on above: Performed By: #### B MP ####[facility] [address] [place], [place] [address]DfIngrid Martinez Calcium [Mass/Vol] 9.2 mg/dL Normal 8.5-10.1 [facility] Comment on above: Performed By: #### B MP ####[facility] [address] [address]Dr. Lisa Martinez Chloride [Moles/Vol] 108 mmol/L Critically high 98-107 [facility] Comment on above: Performed By: #### B MP ####[facility] [address] [address]Dr. Lisa Martinez CO2 [Moles/Vol] 25.6 mmol/L Normal 21.0-32.0 [facility] Comment on above: Performed By: #### B MP ####[facility] [address] [address]Dr. Lisa Martinez Creatinine [Mass/Vol] 1.53 mg/dL Critically high 0.55-1.02 [facility] Comment on above: Performed By: #### B MP ####[facility] [address] [place], [place] [address]Dr. Lisa Martinez EGFR-AF WALLISIAN 39 mL/min/1.73m2 Critically low >=60 [facility] Comment on above: Performed By: #### B MP ####[facility] [address] [place], [place] [address]Dr. Lisa Martinez EGFR-NON AF WALLISIAN 32 mL/min/1.73m2 Critically low >=60 [facility] Comment on above: Performed By: #### B MP ####[facility] [address] [place], [place] [address]Dr. Lisa Juan Glucose [Mass/Vol] 69 mg/dL Critically low 74-106 [facility] Comment on above: Performed By: #### B MP ####[facility] [address] [place], [place] [address]Dr. Lisa Martinez Potassium [Moles/Vol] 5.1 mmol/L Normal 3.5-5.1 [facility] Comment on above: Performed By: #### B MP ####[facility] [address] [place], [place] [address]Dr. Lisa Martinez Sodium [Moles/Vol] 142 mmol/L Normal 136-145 [facility] Comment on above: Performed By: #### B MP ####[facility] [address] [id number] Lisa Martinez Urea nitrogen [Mass/Vol] 32.0 mg/dL Critically high 7.0-18.0 [facility] Comment on above: Performed By: #### B MP ####[facility] [address] [address]Dr. Lisa Martinez Urea nitrogen/Creatinine [Mass ratio] 20.9 mg/mg Normal [facility] Comment on above: Performed By: #### B MP ####[facility] [address] [id number] Lisa Martinez BNPon 10-08-2022 Natriuretic peptide B (Bld) [Mass/Vol] 3489.0 pg/mL Critically high <=1,800.0 [facility] Comment on above: Performed By: #### B METAL FURNITURE POLISHER, BMP #### [facility] [address] [place] [address] Dr. Lisa Martinez CBC AUTO DIFFon 10-08-2022 BASO # 0.0 103/ul Normal 0.0-0.1 [facility] Comment on above: Performed By: #### B METAL FURNITURE POLISHER, BMP #### [facility] [address] [place] [address] Dr. Lisa Martinez Basophils/100 WBC (Bld) 0.6 % Normal 0.2-2.0 [facility] Comment on above: Performed By: #### B METAL FURNITURE POLISHER, BMP #### [facility] [address] [place] [address] Dr. Lisa Martinez EO # 0.2 103/ul Normal 0.0-0.7 [facility] Comment on above: Performed By: #### B METAL FURNITURE POLISHER, BMP #### [facility] [address] [place] [address] Dr. Lisa Martinez Eosinophils/100 WBC (Bld) 3.5 % Normal 0.9-7.0 [facility] Comment on above: Performed By: #### B METAL FURNITURE POLISHER, BMP #### [facility] [address] [place] [address] Dr. Lisa Martinez Erythrocyte distribution width (RBC) [Ratio] 15.5 % Critically high 11.0-15.0 [facility] Comment on above: Performed By: #### B METAL FURNITURE POLISHER, BMP #### [facility] [address] [place] [address] Dr. Lisa Martinez Hematocrit (Bld) [Volume fraction] 31.8 % Critically low 36.0-48.0 [facility] Comment on above: Performed By: #### B METAL FURNITURE POLISHER, BMP #### [facility] [address] [place] [address] Dr. Lisa Martinez Hemoglobin (Bld) [Mass/Vol] 9.8 g/dL Critically low 12.0-16.0 [facility] Comment on above: Performed By: #### B METAL FURNITURE POLISHER, BMP #### [facility] [address] [place] [address] Dr. Lisa Martinez IG # 0.02 10e3/ul Normal 0.00-0.03 [facility] Comment on above: Performed By: #### B METAL FURNITURE POLISHER, BMP #### [facility] [address] [place] [address] Dr. Lisa Martinez IG % 0.3 % Normal 0.0-0.5 [facility] Comment on above: Performed By: #### B METAL FURNITURE POLISHER, BMP #### [facility] [address] [place] [address] Dr. Lisa Martinez LYMPH # 0.9 103/ul Critically low 1.2-3.8 [facility] Comment on above: Performed By: #### B METAL FURNITURE POLISHER, BMP #### [facility] [address] [place] [address] Dr. Lisa Martinez Lymphocytes/100 WBC (Bld) 14.0 % Critically low 20.5-60.0 [facility] Comment on above: Performed By: #### B METAL FURNITURE POLISHER, BMP #### [facility] [address] [place] [address] Dr. Lisa Martinez MANUAL DIFF REQ NO Normal [facility] Comment on above: Performed By: #### B METAL FURNITURE POLISHER, BMP #### [facility] [address] [place] [address] Dr. Lisa Martinez MCH (RBC) [Entitic mass] 29.9 pg Normal 26.7-34.0 [facility] Comment on above: Performed By: #### B METAL FURNITURE POLISHER, BMP #### [facility] [address] [place] [address] Dr. Lisa Martinez MCHC (RBC) [Mass/Vol] 30.8 g/dL Normal 29.9-35.2 [facility] Comment on above: Performed By: #### B METAL FURNITURE POLISHER, BMP #### [facility] [address] [place] [address] Dr. Lisa Martinez MCV (RBC) [Entitic vol] 97.0 fL Normal 81.0-99.0 [facility] Comment on above: Performed By: #### B METAL FURNITURE POLISHER, BMP #### [facility] [address] [place] [address] Dr. Lisa Martinez MONO # 0.8 103/ul Normal 0.3-0.8 [facility] Comment on above: Performed By: #### B METAL FURNITURE POLISHER, BMP #### [facility] [address] [place] [address] Dr. Lisa Martinez Monocytes/100 WBC (Bld) 11.9 % Normal 1.7-12.0 [facility] Comment on above: Performed By: #### B METAL FURNITURE POLISHER, BMP #### [facility] [address] [place] [address] Dr. Lisa Martinez NEUT # 4.4 103/ul Normal 1.4-6.5 [facility] Comment on above: Performed By: #### B METAL FURNITURE POLISHER, BMP #### [facility] [address] [place] [address] Dr. Lisa Martinez Neutrophils/100 WBC (Bld) 69.7 % Normal 43.0-75.0 [facility] Comment on above: Performed By: #### B METAL FURNITURE POLISHER, BMP #### [facility] [address] [place] [address] Dr. Lisa Martinez Platelet mean volume (Bld) [Entitic vol] 10.3 fL Normal 9.5-13.5 [facility] Comment on above: Performed By: #### B METAL FURNITURE POLISHER, BMP #### [facility] [address] [address] [address] Lisa Martinez PLT 223 103/ul Normal 150-450 [facility] Comment on above: Performed By: #### B METAL FURNITURE POLISHER, BMP #### [facility] [address] [address] [address] Lisa Martinez RBC 3.28 106/ul Critically low 4.20-5.40 [facility] Comment on above: Performed By: #### B METAL FURNITURE POLISHER, BMP #### [facility] [address] [address] [address] Lisa Martinez WBC 6.3 103/ul Normal 4.0-11.0 [facility] Comment on above: Performed By: #### B METAL FURNITURE POLISHER, BMP #### [facility] [address] [place] [address] Dr. Lisa Martinez DIGOXINon 10-08-2022 DIG 1.6 ng/mL Normal 0.9-2.0 [facility] Comment on above: Performed By: #### D IG ####[facility] [address] [address]Dr. Lisa Martinez POINT OF CARE GLUCOSEon 04-0 Glucose [Mass/Vol] 226 mg/dL Critically high 74-106 [facility] Comment on above: Performed By: #### P OCGLUC ####[facility] [address] [address]Dr. Lisa Martinez Glucose [Mass/Vol] 107 mg/dL Critically high 74-106 [facility] Comment on above: Performed By: #### B LDCX2 #### [facility] [address] [place] [address] Dr. Lisa Martinez PROF CHEM 8 (BAS METB)on Anion gap [Moles/Vol] 11.7 mmol/L Normal [facility] Comment on above: Performed By: #### B METAL FURNITURE POLISHER, BMP #### [facility] [address] [place] [address] Dr. Lisa Martinez Calcium [Mass/Vol] 9.2 mg/dL Normal 8.5-10.1 [facility] Comment on above: Performed By: #### B METAL FURNITURE POLISHER, BMP #### [facility] [address] [address] [address] Lisa Martinez Chloride [Moles/Vol] 102 mmol/L Normal 98-107 [facility] Comment on above: Performed By: #### B METAL FURNITURE POLISHER, BMP #### [facility] [address] [address] [address] Lisa Martinez CO2 [Moles/Vol] 29.3 mmol/L Normal 21.0-32.0 [facility] Comment on above: Performed By: #### B METAL FURNITURE POLISHER, BMP #### [facility] [address] [address] [address] Lisa Martinez Creatinine [Mass/Vol] 1.27 mg/dL Critically high 0.55-1.02 [facility] Comment on above: Performed By: #### B METAL FURNITURE POLISHER, BMP #### [facility] [address] [place] [address] Dr. Lisa Martinez EGFR-AF WALLISIAN 49 mL/min/1.73m2 Critically low >=60 [facility] Comment on above: Performed By: #### B METAL FURNITURE POLISHER, BMP #### [facility] [address] [place] [address] Dr. Lisa Martinez EGFR-NON AF WALLISIAN 40 mL/min/1.73m2 Critically low >=60 [facility] Comment on above: Performed By: #### B METAL FURNITURE POLISHER, BMP #### [facility] [address] [place] [address] Dr. Lisa Martinez Glucose [Mass/Vol] 98 mg/dL Normal 74-106 [facility] Comment on above: Performed By: #### B METAL FURNITURE POLISHER, BMP #### [facility] [address] [place] [address] Dr. Lisa Martinez Potassium [Moles/Vol] 4.0 mmol/L Normal 3.5-5.1 [facility] Comment on above: Performed By: #### B METAL FURNITURE POLISHER, BMP #### [facility] [address] [place] [address] Dr. Lisa Martinez Sodium [Moles/Vol] 139 mmol/L Normal 136-145 [facility] Comment on above: Performed By: #### B METAL FURNITURE POLISHER, BMP #### [facility] [address] [place] [address] Dr. Lisa Martinez Urea nitrogen [Mass/Vol] 26.0 mg/dL Critically high 7.0-18.0 [facility] Comment on above: Performed By: #### B METAL FURNITURE POLISHER, BMP #### [facility] [address] [place] [address] Dr. Lisa Martinez Urea nitrogen/Creatinine [Mass ratio] 20.5 mg/mg Normal [facility] Comment on above: Performed By: #### B METAL FURNITURE POLISHER, BMP #### [facility] [address] [place] [address] Dr. Lisa Martinez BNPon 10-07-2022 Natriuretic peptide B (Bld) [Mass/Vol] 6039.0 pg/mL Critically high <=1,800.0 [facility] Comment on above: Performed By: #### B METAL FURNITURE POLISHER ####[facility] [address] [address]Dr. Lisa Martinez CBC AUTO DIFFon 10-07-2022 BASO # 0.1 103/ul Normal 0.0-0.1 [facility] Comment on above: Performed By: #### K U #### [facility] [address] [place] [address] Dr. Lisa Martinez Basophils/100 WBC (Bld) 0.7 % Normal 0.2-2.0 [facility] Comment on above: Performed By: #### K U #### [facility] [address] [place] [address] Dr. Lisa Martinez EO # 0.3 103/ul Normal 0.0-0.7 [facility] Comment on above: Performed By: #### K U #### [facility] [address] [place] [address] Dr. Lisa Martinez Eosinophils/100 WBC (Bld) 4.0 % Normal 0.9-7.0 [facility] Comment on above: Performed By: #### K U #### [facility] [address] [place] [address] Dr. Lisa Martinez Erythrocyte distribution width (RBC) [Ratio] 15.6 % Critically high 11.0-15.0 [facility] Comment on above: Performed By: #### K U #### [facility] [address] [place] [address] Dr. Lisa Martinez Hematocrit (Bld) [Volume fraction] 34.0 % Critically low 36.0-48.0 [facility] Comment on above: Performed By: #### K U #### [facility] [address] [place] [address] Dr. Lisa Martinez Hemoglobin (Bld) [Mass/Vol] 10.4 g/dL Critically low 12.0-16.0 [facility] Comment on above: Performed By: #### K U #### [facility] [address] [place] [address] Dr. Lisa Martinez IG # 0.02 10e3/ul Normal 0.00-0.03 [facility] Comment on above: Performed By: #### K U #### [facility] [address] [place] [address] Dr. Lisa Martinez IG % 0.3 % Normal 0.0-0.5 [facility] Comment on above: Performed By: #### K U #### [facility] [address] [place] [address] Dr. Lisa Martinez LYMPH # 1.0 103/ul Critically low 1.2-3.8 [facility] Comment on above: Performed By: #### K U #### [facility] [address] [place] [address] Dr. Lisa Martinez Lymphocytes/100 WBC (Bld) 14.9 % Critically low 20.5-60.0 [facility] Comment on above: Performed By: #### K U #### [facility] [address] [place] [address] Dr. Lisa Martinez MANUAL DIFF REQ NO Normal [facility] Comment on above: Performed By: #### K U #### [facility] [address] [place] [address] Dr. Lisa Martinez MCH (RBC) [Entitic mass] 29.8 pg Normal 26.7-34.0 [facility] Comment on above: Performed By: #### K U #### [facility] [address] [place] [address] Dr. Lisa Martinez MCHC (RBC) [Mass/Vol] 30.6 g/dL Normal 29.9-35.2 [facility] Comment on above: Performed By: #### K U #### [facility] [address] [place] [address] Dr. Lisa Martinez MCV (RBC) [Entitic vol] 97.4 fL Normal 81.0-99.0 [facility] Comment on above: Performed By: #### K U #### [facility] [address] [place] [address] Dr. Lisa Martinez MONO # 0.6 103/ul Normal 0.3-0.8 [facility] Comment on above: Performed By: #### K U #### [facility] [address] [place] [address] Dr. Lisa Martinez Monocytes/100 WBC (Bld) 8.8 % Normal 1.7-12.0 [facility] Comment on above: Performed By: #### K U #### [facility] [address] [place] [address] Dr. Lisa Martinez NEUT # 4.9 103/ul Normal 1.4-6.5 [facility] Comment on above: Performed By: #### K U #### [facility] [address] [place] [address] Dr. Lisa Martinez Neutrophils/100 WBC (Bld) 71.3 % Normal 43.0-75.0 [facility] Comment on above: Performed By: #### K U #### [facility] [address] [place] [address] Dr. Lisa Martinez Platelet mean volume (Bld) [Entitic vol] 10.5 fL Normal 9.5-13.5 [facility] Comment on above: Performed By: #### K U #### [facility] [address] [place] [address] Dr. Lisa Martinez PLT 251 103/ul Normal 150-450 [facility] Comment on above: Performed By: #### K U #### [facility] [address] [address] [address] Lisa Martinez RBC 3.49 106/ul Critically low 4.20-5.40 [facility] Comment on above: Performed By: #### K U #### [facility] [address] [address] [address] Lisa Martinez WBC 6.8 103/ul Normal 4.0-11.0 [facility] Comment on above: Performed By: #### K U #### [facility] [address] [place] [address] Dr. Lisa Martinez DIGOXINon 10-07-2022 DIG 1.7 ng/mL Normal 0.9-2.0 [facility] Comment on above: Performed By: #### U RCX #### [facility] [address] [place] [address] Dr. Lisa Martinez POINT OF CARE GLUCOSEon Glucose [Mass/Vol] 185 mg/dL Critically high 74-106 [facility] Comment on above: Performed By: #### B METAL FURNITURE POLISHER, BMP #### [facility] [address] [place] [address] Dr. Lisa Martinez Glucose [Mass/Vol] 120 mg/dL Critically high -106 [facility] Comment on above: Performed By: #### C VDTBH #### [facility] [address] [place] [address] Dr. Lisa Martinez Glucose [Mass/Vol] 218 mg/dL Critically high -106 [facility] Comment on above: Performed By: #### B LDCX2 #### [facility] [address] [place] [address] Dr. Lisa Martinez PROF CHEM 8 (BAS METB)on Anion gap [Moles/Vol] 12.3 mmol/L Normal [facility] Comment on above: Performed By: #### B METAL FURNITURE POLISHER, BMP #### [facility] [address] [place] [address] Dr. Lisa Martinez Calcium [Mass/Vol] 9.3 mg/dL Normal 8.5-10.1 [facility] Comment on above: Performed By: #### B METAL FURNITURE POLISHER, BMP #### [facility] [address] [place] [address] Dr. Lisa Martinez Chloride [Moles/Vol] 102 mmol/L Normal 98-107 [facility] Comment on above: Performed By: #### B METAL FURNITURE POLISHER, BMP #### [facility] [address] [address] [address] Lisa Martinez CO2 [Moles/Vol] 30.8 mmol/L Normal 21.0-32.0 [facility] Comment on above: Performed By: #### B METAL FURNITURE POLISHER, BMP #### [facility] [address] [place] [address] Dr. Lisa Martinez Creatinine [Mass/Vol] 1.45 mg/dL Critically high 0.55-1.02 [facility] Comment on above: Performed By: #### B METAL FURNITURE POLISHER, BMP #### [facility] [address] [place] [address] Dr. Lisa Martinez EGFR-AF WALLISIAN 42 mL/min/1.73m2 Critically low >=60 [facility] Comment on above: Performed By: #### B METAL FURNITURE POLISHER, BMP #### [facility] [address] [place] [address] Dr. Lisa Martinez EGFR-NON AF WALLISIAN 34 mL/min/1.73m2 Critically low >=60 [facility] Comment on above: Performed By: #### B METAL FURNITURE POLISHER, BMP #### [facility] [address] [place] [address] Dr. Lisa Martinez Glucose [Mass/Vol] 103 mg/dL Normal 74-106 [facility] Comment on above: Performed By: #### B METAL FURNITURE POLISHER, BMP #### [facility] [address] [place] [address] Dr. Lisa Martinez Potassium [Moles/Vol] 4.1 mmol/L Normal 3.5-5.1 [facility] Comment on above: Performed By: #### B METAL FURNITURE POLISHER, BMP #### [facility] [address] [address] [address] Lisa Martinez Sodium [Moles/Vol] 141 mmol/L Normal 136-145 [facility] Comment on above: Performed By: #### B METAL FURNITURE POLISHER, BMP #### [facility] [address] [address] [address] Lisa Martinez Urea nitrogen [Mass/Vol] 26.0 mg/dL Critically high 7.0-18.0 [facility] Comment on above: Performed By: #### B METAL FURNITURE POLISHER, BMP #### [facility] [address] [address] [address] Lisa Martinez Urea nitrogen/Creatinine [Mass ratio] 17.9 mg/mg Normal [facility] Comment on above: Performed By: #### B METAL FURNITURE POLISHER, BMP #### [facility] [address] [address] [address] Lisa Martinez BNPon 10-06-2022 Natriuretic peptide B (Bld) [Mass/Vol] 6211.0 pg/mL Critically high <=1,800.0 [facility] Comment on above: Performed By: #### C MADM, LIVER, CMP, BNP ####[facility] [address] [address]Dr. Lisa Martinez CARDIAC DONY ADMITon 023 CK [Catalytic activity/Vol] 50 U/L Normal 26-192 [facility] Comment on above: Performed By: #### C MADM, LIVER, CMP, BNP ####[facility] [address] [id number] Martinez CK.MB [Mass/Vol] 0.89 ng/mL Normal <=3.60 [facility] Comment on above: Performed By: #### C MADM, LIVER, CMP, BNP ####[facility] [address] [address]Dr. Lisa Martinez HSTROP 19.1 pg/mL Normal 4.0-51.3 [facility] Comment on above: Result Comment: CUT- OFF POINTS HAVE BEEN ESTABLISHED BASED ON THE FOURTH UNIVERSAL DEFINITIONS OF MYOCARDIAL INFARCTION. THE UPPER REFERENCE LIMIT (URL) OF TROPONIN, DEFINED THE 99TH PERCENTILE OF cTnI DISTRIBUTION IN A REFERENCE POPULATION, HAS BEEN CONFIRMED THE DECISION THRESHOLD FOR MA DIAGNOSIS. Performed By: #### C MADM, LIVER, CMP, BNP ####[facility] [address] [address]Dr. Lisa Martinez LISSY 56 ng/mL Normal 9-82 [facility] Comment on above: Performed By: #### C MADM, LIVER, CMP, BNP ####[facility] [address] [id number]. Lisa Martinez CBC AUTO DIFFon 10-06-2022 BASO # 0.1 103/ul Normal 0.0-0.1 [facility] Comment on above: Performed By: #### C BC #### [facility] [address] [address] [address] Lisa Martinez Basophils/100 WBC (Bld) 0.7 % Normal 0.2-2.0 [facility] Comment on above: Performed By: #### C BC #### [facility] [address] [place] [address] Dr. Lisa Martinez EO # 0.2 103/ul Normal 0.0-0.7 [facility] Comment on above: Performed By: #### C BC #### [facility] [address] [place] [address] Dr. Lisa Martinez Eosinophils/100 WBC (Bld) 2.0 % Normal 0.9-7.0 [facility] Comment on above: Performed By: #### C BC #### [facility] [address] [place] [address] Dr. Lisa Martinez Erythrocyte distribution width (RBC) [Ratio] 15.7 % Critically high 11.0-15.0 [facility] Comment on above: Performed By: #### C BC #### [facility] [address] [place] [address] Dr. Lisa Martinez Hematocrit (Bld) [Volume fraction] 32.4 % Critically low 36.0-48.0 [facility] Comment on above: Performed By: #### C BC #### [facility] [address] [place] [address] Dr. Lisa Martinez Hemoglobin (Bld) [Mass/Vol] 10.0 g/dL Critically low 12.0-16.0 [facility] Comment on above: Performed By: #### C BC #### [facility] [address] [place] [address] Dr. Lisa Martinez IG # 0.02 10e3/ul Normal 0.00-0.03 [facility] Comment on above: Performed By: #### C BC #### [facility] [address] [place] [address] Dr. Lisa Martinez IG % 0.3 % Normal 0.0-0.5 [facility] Comment on above: Performed By: #### C BC #### [facility] [address] [place] [address] Dr. Lisa Martinez LYMPH # 0.7 103/ul Critically low 1.2-3.8 [facility] Comment on above: Performed By: #### C BC #### [facility] [address] [place] [address] Dr. Lisa Martinez Lymphocytes/100 WBC (Bld) 9.2 % Critically low 20.5-60.0 [facility] Comment on above: Performed By: #### C BC #### [facility] [address] [place] [address] Dr. Lisa Martinez MANUAL DIFF REQ NO Normal [facility] Comment on above: Performed By: #### C BC #### [facility] [address] [place] [address] Dr. Lisa Martinez MCH (RBC) [Entitic mass] 29.8 pg Normal 26.7-34.0 [facility] Comment on above: Performed By: #### C BC #### [facility] [address] [place] [address] Dr. Lisa Martinez MCHC (RBC) [Mass/Vol] 30.9 g/dL Normal 29.9-35.2 [facility] Comment on above: Performed By: #### C BC #### [facility] [address] [place] [address] Dr. Lisa Martinez MCV (RBC) [Entitic vol] 96.4 fL Normal 81.0-99.0 [facility] Comment on above: Performed By: #### C BC #### [facility] [address] [place] [address] Dr. Lisa Martinez MONO # 0.5 103/ul Normal 0.3-0.8 [facility] Comment on above: Performed By: #### C BC #### [facility] [address] [place] [address] Dr. Lisa Martinez Monocytes/100 WBC (Bld) 6.4 % Normal 1.7-12.0 [facility] Comment on above: Performed By: #### C BC #### [facility] [address] [place] [address] Dr. Lisa aMrtinez NEUT # 6.2 103/ul Normal 1.4-6.5 [facility] Comment on above: Performed By: #### C BC #### [facility] [address] [place] [address] Dr. Lisa Martinez Neutrophils/100 WBC (Bld) 81.4 % Critically high 43.0-75.0 [facility] Comment on above: Performed By: #### C BC #### [facility] [address] [place] [address] Dr. Lisa Martinez Platelet mean volume (Bld) [Entitic vol] 10.2 fL Normal 9.5-13.5 [facility] Comment on above: Performed By: #### C BC #### [facility] [address] [place] [address] Dr. Lisa Martinez PLT 228 103/ul Normal 150-450 [facility] Comment on above: Performed By: #### C BC #### [facility] [address] [place] [address] Dr. Lisa Martinez RBC 3.36 106/ul Critically low 4.20-5.40 [facility] Comment on above: Performed By: #### C BC #### [facility] [address] [place] [address] Dr. Lisa Martinez WBC 7.6 103/ul Normal 4.0-11.0 [facility] Comment on above: Performed By: #### C #### [facility] [address] [address] [address] Lisa aMrtinez CTA CHEST WO W CONon 023 CTA [...] JENNY MARQUEZ Date: 2022-10-06 14:18 Normal [facility] Covid-19 PCR (CVDTB)on 09-08 SARS-CoV-2 (COVID-19) RNA RACIEL+probe Ql (Unsp spec) Not detected Normal NOT DETECTED [facility] Comment on above: Result Comment: When [...] for this test is supported by the [place] of Health and Human Service's declaration that [...] be used). Performed By: #### C VDTBH ####[facility] [address] [address]Dr. Lisa Martinez DIGOXINon 10-06-2022 DIG 2.3 ng/mL Critically high 0.9-2.0 [facility] Comment on above: Performed By: #### C BC #### [facility] [address] [place] [address] Dr. Lisa Martinez LIVER PROFILEon 10-06-2022 BILI, CONJUGATED 0.4 mg/dL Critically high 0.0-0.2 [facility] Comment on above: Performed By: #### C MADM, LIVER, CMP, BNP ####[facility] [address] [address]Dr. Lisa Martinez POINT OF CARE GLUCOSEon 09-08 Glucose [Mass/Vol] 154 mg/dL Critically high 74-106 [facility] Comment on above: Performed By: #### B METAL FURNITURE POLISHER, BMP #### [facility] [address] [place] [address] Dr. Lisa Martinez Glucose [Mass/Vol] 77 mg/dL Normal 74-106 [facility] Comment on above: Performed By: #### B METAL FURNITURE POLISHER, BMP #### [facility] [address] [address] [address] Lisa Martinez PROF 14(COMP METB)on 023 Albumin [Mass/Vol] 3.5 g/dL Normal 3.4-5.0 [facility] Comment on above: Performed By: #### C MADM, LIVER, CMP, BNP ####[facility] [address] [address]Dr. Lisa Martinez Albumin/Globulin [Mass ratio] 0.8 {ratio} Normal [facility] Comment on above: Performed By: #### C MADM, LIVER, CMP, BNP ####[facility] [address] [address]Dr. Lisa Martinez ALP [Catalytic activity/Vol] 94 U/L Normal 46-116 [facility] Comment on above: Performed By: #### C MADM, LIVER, CMP, BNP ####[facility] [address] [address]Dr. Lisa Martinez ALT [Catalytic activity/Vol] 13 U/L Critically low 14-59 [facility] Comment on above: Performed By: #### C MADM, LIVER, CMP, BNP ####[facility] [address] [address]Dr. Lisa Martinez Anion gap [Moles/Vol] 11.1 mmol/L Normal [facility] Comment on above: Performed By: #### C MADM, LIVER, CMP, BNP ####[facility] [address] [address]Dr. Lisa Martinez AST [Catalytic activity/Vol] 15 U/L Normal 15-37 [facility] Comment on above: Performed By: #### C MADM, LIVER, CMP, BNP ####[facility] [address] [address]Dr. Lisa Martinez Bilirubin [Mass/Vol] 1.6 mg/dL Critically high 0.2-1.0 [facility] Comment on above: Performed By: #### C MADM, LIVER, CMP, BNP ####[facility] [address] [address]Dr. Lisa Martinez Calcium [Mass/Vol] 9.2 mg/dL Normal 8.5-10.1 [facility] Comment on above: Performed By: #### C MADM, LIVER, CMP, BNP ####[facility] [address] [address]Dr. Lsia Martinez Chloride [Moles/Vol] 106 mmol/L Normal 98-107 [facility] Comment on above: Performed By: #### C MADM, LIVER, CMP, BNP ####[facility] [address] [address]Dr. Lisa Martinez CO2 [Moles/Vol] 29.0 mmol/L Normal 21.0-32.0 [facility] Comment on above: Performed By: #### C MADM, LIVER, CMP, BNP ####[facility] [address] [address]Dr. Lisa Martinez Creatinine [Mass/Vol] 1.43 mg/dL Critically high 0.55-1.02 [facility] Comment on above: Performed By: #### C MADM, LIVER, CMP, BNP ####[facility] [address] [address]Dr. Lisa Martinez EGFR-AF WALLISIAN 42 mL/min/1.73m2 Critically low >=60 [facility] Comment on above: Performed By: #### C MADM, LIVER, CMP, BNP ####[facility] [address] [address]Dr. Lisa Martinez EGFR-NON AF WALLISIAN 35 mL/min/1.73m2 Critically low >=60 [facility] Comment on above: Performed By: #### C MADM, LIVER, CMP, BNP ####[facility] [address] [address]Dr. Lisa Martinez Globulin (S) [Mass/Vol] 4.2 g/dL Normal [facility] Comment on above: Performed By: #### C MADM, LIVER, CMP, BNP ####[facility] [address] [address]Dr. Yilan Martinez Glucose [Mass/Vol] 114 mg/dL Critically high 74-106 [facility] Comment on above: Performed By: #### C MADM, LIVER, CMP, BNP ####[facility] [address] [address]Dr. Lisa Martinez Potassium [Moles/Vol] 4.1 mmol/L Normal 3.5-5.1 [facility] Comment on above: Performed By: #### C MADM, LIVER, CMP, BNP ####[facility] [address] [address]Dr. Lisa Martinez Protein [Mass/Vol] 7.7 g/dL Normal 6.4-8.2 [facility] Comment on above: Performed By: #### C MADM, LIVER, CMP, BNP ####[facility] [address] [address]Dr. Lisa Martinez Sodium [Moles/Vol] 142 mmol/L Normal 136-145 [facility] Comment on above: Performed By: #### C MADM, LIVER, CMP, BNP ####[facility] [address] [address]Dr. Lisa Martinez Urea nitrogen [Mass/Vol] 26.0 mg/dL Critically high 7.0-18.0 [facility] Comment on above: Performed By: #### C MADM, LIVER, CMP, BNP ####[facility] [address] [address]Dr. Lisa Martinez Urea nitrogen/Creatinine [Mass ratio] 18.2 mg/mg Normal [facility] Comment on above: Performed By: #### C MADM, LIVER, CMP, BNP ####[facility] [address] [address]DrIngrid Martinez PROTIMEon 10-06-2022 INR Coag (PPP) [Relative time] 1.09 {INR} Normal [facility] Comment on above: Performed By: #### B METAL FURNITURE POLISHER, BMP #### [facility] [address] [address] [address] Lisa Martinez INR GUIDELINES SEE BELOW Normal [facility] Comment on above: Result Comment: ANTONY RED INR: 2.0 - 3.0 CONDITIONS NOT LISTED BELOW 2.5 - 3.5 FOR PROSTHETIC HEART VALVE REPLACEMENT 2.5 - 3.5 RECURRENT THROMBOSIS Performed By: #### B METAL FURNITURE POLISHER, BMP #### [facility] [address] [place] [address] Dr. Lisa Martinez PT Coag (PPP) [Time] 11.5 s Normal 9.0-11.6 [facility] Comment on above: Performed By: #### B METAL FURNITURE POLISHER, BMP #### [facility] [address] [place] [address] Dr. Lisa Martinez PTTon 10-06-2022 aPTT Coag (Bld) [Time] 26.5 s Normal 22.3-36.2 [facility] Comment on above: Performed By: #### B METAL FURNITURE POLISHER, BMP #### [facility] [address] [place] [address] Dr. Lisa Martinez ECHOCARDIO M/2D COMPLETEon 1 08-27-2021 ECHOCARDIO M/2D COMPLETE Patient: JENNI QUINONES Exam Date: 06/26/2022 : 1940 Gender:F Ordering : FARZANEH ARNDT Admission #: [id number] Family : Order #: [id number] CLICK HERE TO VIEW EXAM ECHOCARDIOGRAM REPORT [...] 0.81 cm2, 0.87 cm2, 0.77 cm2 Deceleration [place]: 0.72 m/s2 Pressure Half-Time: 1.18 s Peak [...] Nova M.D. on 06/29/2022 at 15:34 Normal [facility] CBC AUTO DIFFon 05-02-2022 BASO # 0.0 103/ul Normal 0.0-0.1 [facility] Comment on above: Performed By: #### C BC #### [facility] [address] [place] [address] Dr. Lisa Martinez Basophils/100 WBC (Bld) 0.4 % Normal 0.2-2.0 [facility] Comment on above: Performed By: #### C BC #### [facility] [address] [place] [address] Dr. Lisa Martinez EO # 0.1 103/ul Normal 0.0-0.7 [facility] Comment on above: Performed By: #### C BC #### [facility] [address] [place] [address] Dr. Lisa Martinez Eosinophils/100 WBC (Bld) 1.8 % Normal 0.9-7.0 [facility] Comment on above: Performed By: #### C BC #### [facility] [address] [place] [address] Dr. Lisa Martinez Erythrocyte distribution width (RBC) [Ratio] 13.3 % Normal 11.0-15.0 [facility] Comment on above: Performed By: #### C BC #### [facility] [address] [place] [address] Dr. Lisa Martinez Hematocrit (Bld) [Volume fraction] 38.4 % Normal 36.0-48.0 [facility] Comment on above: Performed By: #### C BC #### [facility] [address] [place] [address] Dr. Lisa Martinez Hemoglobin (Bld) [Mass/Vol] 12.0 g/dL Normal 12.0-16.0 [facility] Comment on above: Performed By: #### C BC #### [facility] [address] [place] [address] Dr. Lisa Martinez IG # 0.09 10e3/ul Critically high 0.00-0.03 [facility] Comment on above: Performed By: #### C BC #### [facility] [address] [place] [address] Dr. Lisa Martinez IG % 1.6 % Critically high 0.0-0.5 [facility] Comment on above: Performed By: #### C BC #### [facility] [address] [place] [address] Dr. Lisa Martinez LYMPH # 0.9 103/ul Critically low 1.2-3.8 [facility] Comment on above: Performed By: #### C BC #### [facility] [address] [place] [address] Dr. Lisa Martinez Lymphocytes/100 WBC (Bld) 16.0 % Critically low 20.5-60.0 [facility] Comment on above: Performed By: #### C BC #### [facility] [address] [place] [address] Dr. Lisa Martinez MANUAL DIFF REQ NO Normal [facility] Comment on above: Performed By: #### C BC #### [facility] Laboratory [address] [place] [address] Dr. Lisa Martinez MCH (RBC) [Entitic mass] 30.2 pg Normal 26.7-34.0 [facility] Comment on above: Performed By: #### C BC #### [facility] Laboratory [address] [place] [address] Dr. Lisa Martinez MCHC (RBC) [Mass/Vol] 31.3 g/dL Normal 29.9-35.2 [facility] Comment on above: Performed By: #### C BC #### [facility] Laboratory [address] [place] [address] Dr. Lisa Martinez MCV (RBC) [Entitic vol] 96.7 fL Normal 81.0-99.0 [facility] Comment on above: Performed By: #### C BC #### [facility] [address] [place] [address] Dr. Lisa Martinez MONO # 0.6 103/ul Normal 0.3-0.8 [facility] Comment on above: Performed By: #### C BC #### [facility] Laboratory [address] [place] [address] Dr. Lisa Martinez Monocytes/100 WBC (Bld) 11.3 % Normal 1.7-12.0 [facility] Comment on above: Performed By: #### C BC #### [facility] [address] [place] [address] Dr. Lisa Martinez NEUT # 3.9 103/ul Normal 1.4-6.5 [facility] Comment on above: Performed By: #### C BC #### [facility] Laboratory [address] [place] [address] Dr. Lisa Martinez Neutrophils/100 WBC (Bld) 68.9 % Normal 43.0-75.0 [facility] Comment on above: Performed By: #### C BC #### [facility] Laboratory [address] [place] [address] Dr. Lisa Martinez Platelet mean volume (Bld) [Entitic vol] 10.7 fL Normal 9.5-13.5 [facility] Comment on above: Performed By: #### C BC #### [facility] Laboratory [address] [place] [address] Dr. Lisa Martinez PLT 164 103/ul Normal 150-450 [facility] Comment on above: Performed By: #### C BC #### [facility] Laboratory [address] [address] [address] Lisa Martinez RBC 3.97 106/ul Critically low 4.20-5.40 [facility] Comment on above: Performed By: #### C BC #### [facility] Laboratory [address] [address] [address] Lisa Martinez WBC 5.6 103/ul Normal 4.0-11.0 [facility] Comment on above: Performed By: #### C BC #### [facility] Laboratory [address] [address] [address] Lisa Martinez PROF 14(COMP METB)on 022 Albumin [Mass/Vol] 2.8 g/dL Critically low 3.4-5.0 [facility] Comment on above: Performed By: #### U RCX #### [facility] Laboratory [address] [place] [address] Dr. Lisa Martinez Albumin/Globulin [Mass ratio] 0.7 {ratio} Normal [facility] Comment on above: Performed By: #### U RCX #### [facility] Laboratory [address] [place] [address] Dr. Lisa Martinez ALP [Catalytic activity/Vol] 74 U/L Normal 46-116 [facility] Comment on above: Performed By: #### U RCX #### [facility] [address] [place] [address] Dr. Lisa Martinez ALT [Catalytic activity/Vol] 11 U/L Critically low 14-59 [facility] Comment on above: Performed By: #### U RCX #### [facility] Laboratory [address] [place] [address] Dr. Lisa Martinez Anion gap [Moles/Vol] 13.5 mmol/L Normal [facility] Comment on above: Performed By: #### U RCX #### [facility] Laboratory [address] [place] [address] Dr. Lisa Martinez AST [Catalytic activity/Vol] 14 U/L Critically low 15-37 [facility] Comment on above: Performed By: #### U RCX #### [facility] Laboratory [address] [address] [address] Lisa Martinez Bilirubin [Mass/Vol] 0.5 mg/dL Normal 0.2-1.0 [facility] Comment on above: Performed By: #### U RCX #### [facility] Laboratory [address] [address] [address] Lisa Martinez Calcium [Mass/Vol] 8.5 mg/dL Normal 8.5-10.1 [facility] Comment on above: Performed By: #### U RCX #### [facility] Laboratory [address] [address] [address] Lisa Martinez Chloride [Moles/Vol] 103 mmol/L Normal 98-107 [facility] Comment on above: Performed By: #### U RCX #### [facility] Laboratory [address] [place] [address] Dr. Lisa Martinez CO2 [Moles/Vol] 24.5 mmol/L Normal 21.0-32.0 [facility] Comment on above: Performed By: #### U RCX #### [facility] [address] [place] [address] Dr. Lisa Martinez Creatinine [Mass/Vol] 1.43 mg/dL Critically high 0.55-1.02 [facility] Comment on above: Performed By: #### U RCX #### [facility] [address] [place] [address] Dr. Lisa Martinez EGFR-AF WALLISIAN 42 mL/min/1.73m2 Critically low >=60 [facility] Comment on above: Performed By: #### U RCX #### [facility] [address] [place] [address] Dr. Lisa Martinez EGFR-NON AF WALLISIAN 35 mL/min/1.73m2 Critically low >=60 [facility] Comment on above: Performed By: #### U RCX #### [facility] [address] [place] [address] Dr. Lisa Martinez Globulin (S) [Mass/Vol] 4.3 g/dL Normal [facility] Comment on above: Performed By: #### U RCX #### [facility] [address] [place] [address] Dr. Lisa Martinez Glucose [Mass/Vol] 142 mg/dL Critically high 74-106 [facility] Comment on above: Performed By: #### U RCX #### [facility] [address] [place] [address] Dr. Lisa Martinez Potassium [Moles/Vol] 4.0 mmol/L Normal 3.5-5.1 [facility] Comment on above: Performed By: #### U RCX #### [facility] [address] [place] [address] Dr. Lisa Martinez Protein [Mass/Vol] 7.1 g/dL Normal 6.4-8.2 [facility] Comment on above: Performed By: #### U RCX #### [facility] [address] [place] [address] Dr. Lisa Martinez Sodium [Moles/Vol] 137 mmol/L Normal 136-145 [facility] Comment on above: Performed By: #### U RCX #### [facility] [address] [place] [address] Dr. Lisa Martinez Urea nitrogen [Mass/Vol] 31.0 mg/dL Critically high 7.0-18.0 [facility] Comment on above: Performed By: #### U RCX #### [facility] [address] [place] [address] Dr. Lisa Martinez Urea nitrogen/Creatinine [Mass ratio] 21.7 mg/mg Normal [facility] Comment on above: Performed By: #### U RCX #### [facility] [address] [place] [address] Dr. iLsa Martinez CBC AUTO DIFFon 05-01-2022 BASO # 0.0 103/ul Normal 0.0-0.1 [facility] Comment on above: Performed By: #### U RCX #### [facility] [address] [place] [address] Dr. Lisa Martinez Basophils/100 WBC (Bld) 0.3 % Normal 0.2-2.0 [facility] Comment on above: Performed By: #### U RCX #### [facility] [address] [place] [address] Dr. Lisa Martinez EO # 0.1 103/ul Normal 0.0-0.7 [facility] Comment on above: Performed By: #### U RCX #### [facility] [address] [place] [address] Dr. Lisa Martinez Eosinophils/100 WBC (Bld) 0.9 % Normal 0.9-7.0 [facility] Comment on above: Performed By: #### U RCX #### [facility] [address] [place] [address] Dr. Lisa Martinez Erythrocyte distribution width (RBC) [Ratio] 13.4 % Normal 11.0-15.0 [facility] Comment on above: Performed By: #### U RCX #### [facility] [address] [place] [address] Dr. Lisa Martinez Hematocrit (Bld) [Volume fraction] 41.6 % Normal 36.0-48.0 [facility] Comment on above: Performed By: #### U RCX #### [facility] [address] [place] [address] Dr. Lisa Martinez Hemoglobin (Bld) [Mass/Vol] 12.8 g/dL Normal 12.0-16.0 [facility] Comment on above: Performed By: #### U RCX #### [facility] [address] [place] [address] Dr. Lisa Martinez IG # 0.16 10e3/ul Critically high 0.00-0.03 [facility] Comment on above: Performed By: #### U RCX #### [facility] [address] [place] [address] Dr. Lisa Martinez IG % 1.6 % Critically high 0.0-0.5 [facility] Comment on above: Performed By: #### U RCX #### [facility] [address] [place] [address] Dr. Lisa Martinez LYMPH # 0.8 103/ul Critically low 1.2-3.8 [facility] Comment on above: Performed By: #### U RCX #### [facility] [address] [place] [address] Dr. Lisa Martinez Lymphocytes/100 WBC (Bld) 7.8 % Critically low 20.5-60.0 [facility] Comment on above: Performed By: #### U RCX #### [facility] [address] [place] [address] Dr. Lisa Martinez MANUAL DIFF REQ NO Normal [facility] Comment on above: Performed By: #### U RCX #### [facility] [address] [place] [address] Dr. Lisa Martinez MCH (RBC) [Entitic mass] 29.8 pg Normal 26.7-34.0 [facility] Comment on above: Performed By: #### U RCX #### [facility] [address] [place] [address] Dr. Lisa Martinez MCHC (RBC) [Mass/Vol] 30.8 g/dL Normal 29.9-35.2 [facility] Comment on above: Performed By: #### U RCX #### [facility] [address] [place] [address] Dr. Lisa Martinez MCV (RBC) [Entitic vol] 96.7 fL Normal 81.0-99.0 [facility] Comment on above: Performed By: #### U RCX #### [facility] [address] [place] [address] Dr. Lisa Martinez MONO # 0.8 103/ul Normal 0.3-0.8 [facility] Comment on above: Performed By: #### U RCX #### [facility] [address] [place] [address] Dr. Lisa Martinez Monocytes/100 WBC (Bld) 8.4 % Normal 1.7-12.0 [facility] Comment on above: Performed By: #### U RCX #### [facility] [address] [place] [address] Dr. Lisa Martinez NEUT # 7.9 103/ul Critically high 1.4-6.5 [facility] Comment on above: Performed By: #### U RCX #### [facility] [address] [place] [address] Dr. Lisa Martinez Neutrophils/100 WBC (Bld) 81.0 % Critically high 43.0-75.0 [facility] Comment on above: Performed By: #### U RCX #### [facility] [address] [place] [address] Dr. Lisa Martinez Platelet mean volume (Bld) [Entitic vol] 10.6 fL Normal 9.5-13.5 [facility] Comment on above: Performed By: #### U RCX #### [facility] [address] [place] [address] Dr. Lisa Martinez PLT 211 103/ul Normal 150-450 [facility] Comment on above: Performed By: #### U RCX #### [facility] [address] [place] [address] Dr. Lisa Martinez RBC 4.30 106/ul Normal 4.20-5.40 [facility] Comment on above: Performed By: #### U RCX #### [facility] [address] [place] [address] Dr. Lisa Martinez WBC 9.8 103/ul Normal 4.0-11.0 [facility] Comment on above: Performed By: #### U RCX #### [facility] [address] [place] [address] Dr. Lisa Martinez DIGOXINon 05-01-2022 DIG 0.7 ng/mL Critically low 0.9-2.0 [facility] Comment on above: Performed By: #### B METAL FURNITURE POLISHER, BMP #### [facility] [address] [place] [address] Dr. Lisa Martinez GI PANEL (PCR)on 05-01-2022 Adenovirus F 40/41 Not detected Normal NOT DETECTED [facility] Comment on above: Performed By: #### B LDCX2 #### [facility] [address] [place] [address] Dr. Lisa Martinez Astrovirus Not detected Normal NOT DETECTED [facility] Comment on above: Performed By: #### B LDCX2 #### [facility] [address] [place] [address] Dr. Lisa Martinez C. Diff toxin A/B Not detected Normal NOT DETECTED [facility] Comment on above: Performed By: #### B LDCX2 #### [facility] [address] [place] [address] Dr. Lisa Martinez Campylobacter Not detected Normal NOT DETECTED [facility] Comment on above: Performed By: #### B LDCX2 #### [facility] [address] [place] [address] Dr. Lisa Martinez Cryptosporidium Not detected Normal NOT DETECTED [facility] Comment on above: Performed By: #### B LDCX2 #### [facility] [address] [place] [address] Dr. Lisa Martinez Cyclos. Cayetanensis Not detected Normal NOT DETECTED [facility] Comment on above: Performed By: #### B LDCX2 #### [facility] [address] [place] [address] Dr. Lisa Martinez E. Coli O157 Not Applicable Normal Not Applicable [facility] Comment on above: Performed By: #### B LDCX2 #### [facility] [address] [place] [address] Dr. Lisa Martinez E. histolytica Not detected Normal NOT DETECTED [facility] Comment on above: Performed By: #### B LDCX2 #### [facility] [address] [place] [address] Dr. Lisa Martinez EAEC Not detected Normal NOT DETECTED [facility] Comment on above: Performed By: #### B LDCX2 #### [facility] [address] [place] [address] Dr. Lisa Martinez EIEC Not detected Normal NOT DETECTED [facility] Comment on above: Performed By: #### B LDCX2 #### [facility] [address] [place] [address] Dr. Lisa Martinez EPEC Not detected Normal NOT DETECTED [facility] Comment on above: Performed By: #### B LDCX2 #### [facility] [address] [address] [address] Lisa Martinez ETEC Not detected Normal NOT DETECTED [facility] Comment on above: Performed By: #### B LDCX2 #### [facility] [address] [address] [address] Lisa Perrin Lamblia Not detected Normal NOT DETECTED [facility] Comment on above: Performed By: #### B LDCX2 #### [facility] [address] [address] [address] Lisa MALDONADO CONTROLS PASSED Normal [facility] Comment on above: Performed By: #### B LDCX2 #### [facility] [address] [place] [address] Dr. Lisa PEREZ HEADER GI PANEL BACTERIA Normal [facility] Comment on above: Performed By: #### B LDCX2 #### [facility] [address] [address] [address] Lisa HIRSCH ECOLI GI PANEL DIARRHEAGEN IC E.COLI / SHIGELLA Normal [facility] Comment on above: Performed By: #### B LDCX2 #### [facility] [address] [address] [address] Lisa HIRSCH INFO SEE BELOW Normal [facility] Comment on above: Result Comment: EAEC - Enteroaggregative E. Coli EPEC- Enteropathogenic E. Coli ETEC- Enterotoxigenic E. Coli lt/st STEC- Shigella-like toxin-producing E. Coli stx1/stx2 EIEC- Shigella/Enteroinvasive E. Coli Performed By: #### B LDCX2 #### [facility] [address] [place] [address] Dr. Lisa HIRSCH PARASITES GI PANEL PARASITES Normal [facility] Comment on above: Performed By: #### B LDCX2 #### [facility] [address] [address] [address] Lisa HIRSCH VIRUS GI PANEL VIRUSES Normal [facility] Comment on above: Performed By: #### B LDCX2 #### [facility] [address] [place] [address] Dr. Lisa Martinez Norovirus GI/GII Not detected Normal NOT DETECTED [facility] Comment on above: Performed By: #### B LDCX2 #### [facility] [address] [place] [address] Dr. Lisa Martinez P. Shigelloides Not detected Normal NOT DETECTED [facility] Comment on above: Performed By: #### B LDCX2 #### [facility] [address] [place] [address] Dr. Lisa Martinez Rotavirus A Not detected Normal NOT DETECTED [facility] Comment on above: Performed By: #### B LDCX2 #### [facility] [address] [place] [address] Dr. Lisa Martinez Salmonella Not detected Normal NOT DETECTED [facility] Comment on above: Performed By: #### B LDCX2 #### [facility] [address] [place] [address] Dr. Lisa Martinez Sapovirus Not detected Normal NOT DETECTED [facility] Comment on above: Performed By: #### B LDCX2 #### [facility] [address] [place] [address] Dr. Lisa Martinez STEC Not detected Normal NOT DETECTED [facility] Comment on above: Performed By: #### B LDCX2 #### [facility] [address] [place] [address] Dr. Lisa Martinez Vibrio Not detected Normal NOT DETECTED [facility] Comment on above: Performed By: #### B LDCX2 #### [facility] [address] [place] [address] Dr. Lisa Martinez Vibrio Cholera Not detected Normal NOT DETECTED [facility] Comment on above: Performed By: #### B LDCX2 #### [facility] [address] [place] [address] Dr. Lisa Martinez Y. Enterocolitica Not detected Normal NOT DETECTED [facility] Comment on above: Performed By: #### B LDCX2 #### [facility] [address] [place], [place] [address] Dr. Lisa Martinez MAGNESIUMon 05-01-2022 Magnesium [Mass/Vol] 2.0 mg/dL Normal 1.8-2.4 [facility] Comment on above: Performed By: #### M G ####[facility] [address] [address]Dr. Lisa Martinez POINT OF CARE GLUCOSEon 04-09 Glucose [Mass/Vol] 184 mg/dL Critically high 74-106 [facility] Comment on above: Performed By: #### U RCX #### [facility] [address] [address] [address] Lisa Martinez Glucose [Mass/Vol] 137 mg/dL Critically high -106 [facility] Comment on above: Result Comment: Foll ow Protocol Performed By: #### C BC #### [facility] [address] [place] [address] Dr. Lisa Martinez Glucose [Mass/Vol] 170 mg/dL Critically high -106 [facility] Comment on above: Result Comment: Foll ow Protocol Performed By: #### P OCGLUC ####[facility] [address] [address]DrIngrid Martinez PROF 14(COMP METB)on 022 Albumin [Mass/Vol] 3.0 g/dL Critically low 3.4-5.0 [facility] Comment on above: Performed By: #### C MP ####[facility] [address] [address]DrIngrid Martinez Albumin/Globulin [Mass ratio] 0.6 {ratio} Normal [facility] Comment on above: Performed By: #### C MP ####[facility] [address] [id number] Martinez ALP [Catalytic activity/Vol] 101 U/L Normal 46-116 [facility] Comment on above: Performed By: #### C MP ####[facility] [address] [address]DrIngrid Martinez ALT [Catalytic activity/Vol] 16 U/L Normal 14-59 [facility] Comment on above: Performed By: #### C MP ####[facility] [address] [id number]. Lisa Martinez Anion gap [Moles/Vol] 9.7 mmol/L Normal [facility] Comment on above: Performed By: #### C MP ####[facility] [address] [id number]. Lisa Juan AST [Catalytic activity/Vol] 13 U/L Critically low 15-37 [facility] Comment on above: Performed By: #### C MP ####[facility] [address] [id number]. Lisa Juan Bilirubin [Mass/Vol] 0.5 mg/dL Normal 0.2-1.0 [facility] Comment on above: Performed By: #### C MP ####[facility] [address] [address]Dr. Lisa Martinez Calcium [Mass/Vol] 8.8 mg/dL Normal 8.5-10.1 [facility] Comment on above: Performed By: #### C MP ####[facility] [address] [id number]. Lisa Martinez Chloride [Moles/Vol] 104 mmol/L Normal 98-107 [facility] Comment on above: Performed By: #### C MP ####[facility] [address] [id number][address] Lisa Martinez CO2 [Moles/Vol] 26.8 mmol/L Normal 21.0-32.0 [facility] Comment on above: Performed By: #### C MP ####[facility] [address] [id number]. Lisa Juan Creatinine [Mass/Vol] 1.51 mg/dL Critically high 0.55-1.02 [facility] Comment on above: Performed By: #### C MP ####[facility] [address] [id number]. Lisa Martinez EGFR-AF WALLISIAN 40 mL/min/1.73m2 Critically low >=60 [facility] Comment on above: Performed By: #### C MP ####[facility] [address] [id number]. Lisa Martinez EGFR-NON AF WALLISIAN 33 mL/min/1.73m2 Critically low >=60 [facility] Comment on above: Performed By: #### C MP ####[facility] [address] [id number]. Lisa Martinez Globulin (S) [Mass/Vol] 4.8 g/dL Normal [facility] Comment on above: Performed By: #### C MP ####[facility] [address] [id number][address] Lisa Martinez Glucose [Mass/Vol] 177 mg/dL Critically high 74-106 [facility] Comment on above: Performed By: #### C MP ####[facility] [address] [id number]. Lisa Martinez Potassium [Moles/Vol] 4.5 mmol/L Normal 3.5-5.1 [facility] Comment on above: Performed By: #### C MP ####[facility] [address] [id number]. Lisa Martinez Protein [Mass/Vol] 7.8 g/dL Normal 6.4-8.2 [facility] Comment on above: Performed By: #### C MP ####[facility] [address] [id number]. Lisa Martinez Sodium [Moles/Vol] 136 mmol/L Normal 136-145 [facility] Comment on above: Performed By: #### C MP ####[facility] [address] [id number]. Lisa Martinez Urea nitrogen [Mass/Vol] 28.0 mg/dL Critically high 7.0-18.0 [facility] Comment on above: Performed By: #### C MP ####[facility] [facility] [address] [id number]. Lisa Juan Urea nitrogen/Creatinine [Mass ratio] 18.5 mg/mg Normal [facility] Comment on above: Performed By: #### C MP ####[facility] [address] [place] [address]Dr. Lisa Martinez BNPon 04-30-2022 Natriuretic peptide B (Bld) [Mass/Vol] 1752.0 pg/mL Normal <=1,800.0 [facility] Comment on above: Performed By: #### B METAL FURNITURE POLISHER, BMP #### [facility] [address] [address] [address] Lisa Martinez CBC AUTO DIFFon 04-30-2022 BASO # 0.1 103/ul Normal 0.0-0.1 [facility] Comment on above: Performed By: #### C BC ####[facility] [address] [place] [address]DrIngrid Martinez Basophils/100 WBC (Bld) 0.6 % Normal 0.2-2.0 [facility] Comment on above: Performed By: #### C BC ####[facility] [address] [place], [place] [address]DrIngrid Martinez EO # 0.1 103/ul Normal 0.0-0.7 [facility] Comment on above: Performed By: #### C BC ####[facility] [address] [place], [place] [address]Dr. Lisa Martinez Eosinophils/100 WBC (Bld) 1.2 % Normal 0.9-7.0 [facility] Comment on above: Performed By: #### C BC ####[facility] [address] [place], [place] [address]DrIngrid Martinez Erythrocyte distribution width (RBC) [Ratio] 13.2 % Normal 11.0-15.0 [facility] Comment on above: Performed By: #### C BC ####[facility] [address] [place], [place] [address]DrIngrid Martinez Hematocrit (Bld) [Volume fraction] 43.4 % Normal 36.0-48.0 [facility] Comment on above: Performed By: #### C BC ####[facility] [address] [place], [place] [address]Dr. Lisa Martinez Hemoglobin (Bld) [Mass/Vol] 14.2 g/dL Normal 12.0-16.0 [facility] Comment on above: Performed By: #### C BC ####[facility] [address] [place] [address]Dr. Lisa Martinez IG # 0.13 10e3/ul Critically high 0.00-0.[address] [facility] Comment on above: Performed By: #### C BC ####[facility] [address] [place] [address]Dr. Lisa Juan IG % 1.6 % Critically high 0.0-0.5 The [facility] Comment on above: Performed By: #### C BC ####[facility] [address] [address]Dr. Lisa Juan LYMPH # 0.8 103/ul Critically low 1.2-3.8 The [facility] Comment on above: Performed By: #### C BC ####[facility] [address] [place] [address]Dr. Lisa Juan Lymphocytes/100 WBC (Bld) 9.8 % Critically low 20.5-60.0 [facility] Comment on above: Performed By: #### C BC ####[facility] [address] [address]Dr. Lisa Martinez MANUAL DIFF REQ NO Normal The [facility] Comment on above: Performed By: #### C BC ####[facility] [address] [place], [place] [address]Dr. Lisa Martinez MCH (RBC) [Entitic mass] 30.0 pg Normal 26.7-34.0 [facility] Comment on above: Performed By: #### C BC ####[facility] [address] [place], [place] [address]Dr. Lisa Martinez MCHC (RBC) [Mass/Vol] 32.7 g/dL Normal 29.9-35.2 [facility] Comment on above: Performed By: #### C BC ####[facility] J[address] [place], [place] [address]Dr. Lisa Martinez MCV (RBC) [Entitic vol] 91.8 fL Normal 81.0-99.0 [facility] Comment on above: Performed By: #### C BC ####[facility] [address] [id number]. Lisa Martinez MONO # 1.2 103/ul Critically high 0.3-0.8 The [facility] Comment on above: Performed By: #### C BC ####[facility] [address] [id number]. Lisa Juan Monocytes/100 WBC (Bld) 15.0 % Critically high 1.7-12.0 [facility] Comment on above: Performed By: #### C BC ####[facility] [address] [place] [address]Dr. Lisa Martinez NEUT # 5.8 103/ul Normal 1.4-6.5 [facility] Comment on above: Performed By: #### C BC ####[facility] [address] [place] [address]Dr. Lisa Juan Neutrophils/100 WBC (Bld) 71.8 % Normal 43.0-75.0 [facility] Comment on above: Performed By: #### C BC ####[facility] [address] [place] [address]Dr. Lisa Juan Platelet mean volume (Bld) [Entitic vol] 10.5 fL Normal 9.5-13.5 [facility] Comment on above: Performed By: #### C BC ####[facility] [address] [place] [id number]. Lisa Juan PLT 242 103/ul Normal 150-450 [facility] Comment on above: Performed By: #### C BC ####[facility] [address] [place] [id number]. Lisa Juan RBC 4.73 106/ul Normal 4.20-5.40 [facility] Comment on above: Performed By: #### C BC ####[facility] [address] [place] [id number] Martinez WBC 8.1 103/ul Normal 4.0-11.0 [facility] Comment on above: Performed By: #### C BC ####[facility] [address] [place] [address] [address]. Lisa Martinez CT HEAD WO CONon 04-30-2022 [...] MEENA HAWKINS Date: 2022-04-30 07:46 Normal [facility] CULTURE BLOODon 04-30-2022 Microscopic examination of blood, culture Culture Observations: NO GROWTH AT 5 DAYS. Normal [facility] Comment on above: Performed By: #### B LDCX2 #### [facility] [address] [address] [address] Lisa Martinez Microscopic examination of blood, culture Culture Observations: NO GROWTH AT 5 DAYS. Normal [facility] Comment on above: Performed By: #### B LDCX1 ####[facility] [address] [place] [address] [address]Dr. Lisa Martinez CULTURE URINEon 04-30-2022 CULTURE URINE Culture Observations : No growth Normal [facility] Comment on above: Performed By: #### U RCX ####[facility] [address] [place] [address]DrIngrid Martinez Covid-19 PCR (CVDTB)on 04-09 SARS-CoV-2 (COVID-19) RNA RACIEL+probe Ql (Unsp spec) Detected Critically abnormal NOT DETECTED [facility] Comment on above: Result Comment: This test is not yet approved or cleared by the [place] FDA. When there are no FDA-approved or cleared tests available, and other criteria are met, FDA can make tests available under an emergency access mechanism called an Emergency Use Authorization (EUA). The EUA for this test is supported by the [place] of Health and Human Service's declaration that [...] used). Performed By: #### C VDTB #### [facility] [address] [place] [address] Dr. Lisa Martinez ER URINE PROFILEon 2 Bilirubin Ql (U) Negative Normal NEGATIVE The [facility] Comment on above: Performed By: #### C BC #### [facility] [address] [place] [address] Dr. Lisa Martinez Clarity (U) CLEAR Normal CLEAR [facility] Comment on above: Performed By: #### C BC #### [facility] [address] [place] [address] Dr. Lisa Martinez Color (U) LT. YELLOW Normal YELLOW [facility] Comment on above: Performed By: #### C BC #### [facility] [address] [place] [address] Dr. Lisa Martinez ERUAHD A micrscopic examina tion will be performed if indicated. Normal [facility] Comment on above: Performed By: #### C BC #### [facility] [address] [place] [address] Dr. Lisa Martinez Glucose Ql (U) Negative Normal NEGATIVE The [facility] Comment on above: Performed By: #### C BC #### [facility] [address] [place] [address] Dr. Lisa Martinez Hemoglobin Ql (U) Negative Normal NEGATIVE The [facility] Comment on above: Performed By: #### C BC #### [facility] [address] [place] [address] Dr. Lisa Martinez Ketones Ql (U) Negative Normal NEGATIVE [facility] Comment on above: Performed By: #### C BC #### [facility] [address] [place] [address] Dr. Lisa Martinez LEUKOCYTES Negative Normal NEGATIVE [facility] Comment on above: Performed By: #### C BC #### [facility] [address] [place] [address] Dr. Lisa Martinez Nitrite Ql (U) Positive Abnormal NEGATIVE [facility] Comment on above: Performed By: #### C BC #### [facility] [address] [place] [address] Dr. Lisa Martinez pH (U) 5.5 [pH] Normal 5-9 [facility] Comment on above: Performed By: #### C BC #### [facility] [address] [place] [address] Dr. Lisa Martinez SPEC GRAVITY 1.030 Abnormal 1.005-<=1.0 25 [facility] Comment on above: Performed By: #### C BC #### [facility] [address] [place] [address] Dr. Lisa Martinez UA PROTEIN Negative Normal NEGATIVE/ TRACE [facility] Comment on above: Performed By: #### C BC #### [facility] [address] [place] [address] Dr. Lisa Martinez UR MICRO IND INDICATED Normal [facility] Comment on above: Performed By: #### C BC #### [facility] [address] [place] [address] Dr. Lisa Martinez Urobilinogen Qn (U) 0.2 {Mike'U}/dL Normal 0.2 - 1. 0 [facility] Comment on above: Performed By: #### C BC #### [facility] [address] [place] [address] Dr. Lisa Martinez GLYCOHEMOGLOBIN A1Con 2021 ADA RECOMMENDATION SEE BELOW Normal [facility] Comment on above: Result Comment: ADA RECOMMENDED LIMIT 4.0 - 6.0 ADA THERAPEUTIC TARGET < 7.0 ACTION SUGGESTED > 7.0 Performed By: #### B METAL FURNITURE POLISHER, BMP #### [facility] [address] [address] [address] Lisa Martinez Glucose [Mass/Vol] 154 mg/dL Normal The [facility] Comment on above: Performed By: #### B METAL FURNITURE POLISHER, BMP #### [facility] [address] [address] [address] Lisa Martinez HbA1c (Bld) [Mass fraction] 7.0 % Critically high 4.5-6.2 [facility] Comment on above: Performed By: #### B METAL FURNITURE POLISHER, BMP #### [facility] [address] [place] [address] Dr. Lisa Martinez LACTATE/LACTIC ACIDon 2021 Lactate [Moles/Vol] 1.1 mmol/L Normal 0.4-1.9 [facility] Comment on above: Performed By: #### L ACT ####[facility] [address] [address]Dr. Lisa Martinez LIPASEon 04-30-2022 Lipase [Catalytic activity/Vol] 53.0 U/L Critically low 73.0-393.0 [facility] Comment on above: Performed By: #### B METAL FURNITURE POLISHER, BMP #### [facility] [address] [place] [address] Dr. Lisa Martinez LIVER PROFILEon 04-30-2022 Albumin [Mass/Vol] 3.4 g/dL Normal 3.4-5.0 The [facility] Comment on above: Performed By: #### U RCX #### [facility] [address] [place] [address] Dr. Lisa Martinez Albumin/Globulin [Mass ratio] 0.7 {ratio} Normal [facility] Comment on above: Performed By: #### U RCX #### [facility] [address] [place] [address] Dr. Lisa Martinez ALP [Catalytic activity/Vol] 110 U/L Normal 46-116 [facility] Comment on above: Performed By: #### U RCX #### [facility] [address] [address] [address] Lisa Martinez ALT [Catalytic activity/Vol] 20 U/L Normal 14-59 [facility] Comment on above: Performed By: #### U RCX #### [facility] [address] [address] [address] Lisa Martinez AST [Catalytic activity/Vol] 16 U/L Normal 15-37 [facility] Comment on above: Performed By: #### U RCX #### [facility] [address] [address] [address] Lisa Martinez BILI, CONJUGATED 0.2 mg/dL Normal 0.0-0.2 [facility] Comment on above: Performed By: #### U RCX #### [facility] [address] [place] [address] Dr. Lisa Martinez Bilirubin [Mass/Vol] 0.7 mg/dL Normal 0.2-1.0 [facility] Comment on above: Performed By: #### U RCX #### [facility] [address] [place] [address] Dr. Lisa Martinez Globulin (S) [Mass/Vol] 5.0 g/dL Normal [facility] Comment on above: Performed By: #### U RCX #### [facility] [address] [place] [address] Dr. Lisa Martinez Protein [Mass/Vol] 8.4 g/dL Critically high 6.4-8.2 [facility] Comment on above: Performed By: #### U RCX #### [facility] [address] [place] [address] Dr. Lisa Martinez POINT OF CARE GLUCOSEon 10-2 Glucose [Mass/Vol] 203 mg/dL Critically high 74-106 [facility] Comment on above: Performed By: #### B METAL FURNITURE POLISHER, BMP #### [facility] [address] [place] [address] Dr. Lisa Martinez Glucose [Mass/Vol] 174 mg/dL Critically high 74-106 [facility] Comment on above: Performed By: #### C BC #### [facility] [address] [address] [address] Lisa Martinez Glucose [Mass/Vol] 149 mg/dL Critically high 74-106 [facility] Comment on above: Performed By: #### B LDCX2 #### [facility] [address] [place] [address] Dr. Lisa Martinez PROF CHEM 8 (BAS METB)on Anion gap [Moles/Vol] 15.3 mmol/L Normal [facility] Comment on above: Performed By: #### C BC #### [facility] [address] [address] [address] Lisa Martinez Calcium [Mass/Vol] 9.1 mg/dL Normal 8.5-10.1 [facility] Comment on above: Performed By: #### C BC #### [facility] [address] [place] [address] Dr. Lisa Mratinez Chloride [Moles/Vol] 98 mmol/L Normal 98-107 [facility] Comment on above: Performed By: #### C BC #### [facility] [address] [place] [address] Dr. Lisa Martinez CO2 [Moles/Vol] 24.4 mmol/L Normal 21.0-32.0 [facility] Comment on above: Performed By: #### C BC #### [facility] [address] [place] [address] Dr. Lisa Martinez Creatinine [Mass/Vol] 1.44 mg/dL Critically high 0.55-1.02 [facility] Comment on above: Performed By: #### C BC #### [facility] [address] [place] [address] Dr. Lisa Martinez EGFR-AF WALLISIAN 42 mL/min/1.73m2 Critically low >=60 [facility] Comment on above: Performed By: #### C BC #### [facility] [address] [place] [address] Dr. Lisa Martinez EGFR-NON AF WALLISIAN 35 mL/min/1.73m2 Critically low >=60 [facility] Comment on above: Performed By: #### C BC #### [facility] [address] [address] [address] Lisa Martinez Glucose [Mass/Vol] 225 mg/dL Critically high 74-106 [facility] Comment on above: Performed By: #### C BC #### [facility] [address] [address] [address] Lisa Martinez Potassium [Moles/Vol] 4.7 mmol/L Normal 3.5-5.1 [facility] Comment on above: Performed By: #### C BC #### [facility] [address] [address] [address] Lisa Martinez Sodium [Moles/Vol] 133 mmol/L Critically low 136-145 [facility] Comment on above: Performed By: #### C BC #### [facility] [address] [address] [address] Lisa Martinez Urea nitrogen [Mass/Vol] 37.0 mg/dL Critically high 7.0-18.0 [facility] Comment on above: Performed By: #### C BC #### [facility] [address] [address] [address] Lisa Martinez Urea nitrogen/Creatinine [Mass ratio] 25.7 mg/mg Normal [facility] Comment on above: Performed By: #### C BC #### [facility] [address] [address] [address] Lisa Martinez PROTIMEon 04-30-2022 INR Coag (PPP) [Relative time] 1.02 {INR} Normal [facility] Comment on above: Performed By: #### K U #### [facility] [address] [address] [address] Lisa Martinez INR GUIDELINES SEE BELOW Normal [facility] Comment on above: Result Comment: ANTONY RED INR: 2.0 - 3.0 CONDITIONS NOT LISTED BELOW 2.5 - 3.5 FOR PROSTHETIC HEART VALVE REPLACEMENT 2.5 - 3.5 RECURRENT THROMBOSIS Performed By: #### K U #### [facility] [address] [address] [address] Lisa Martinez PT Coag (PPP) [Time] 11.0 s Normal 9.0-11.6 [facility] Comment on above: Performed By: #### K U #### [facility] [address] [place] [address] Dr. Lisa Martinez PTTon 04-30-2022 aPTT Coag (Bld) [Time] 27.5 s Normal 22.3-36.2 [facility] Comment on above: Performed By: #### K U #### [facility] [address] [place] [address] Dr. Lisa Martinez TROPONIN, HIGH SENSITIVITYon 04-30-2022 HSTROP 20.0 pg/mL Normal 4.0-51.3 [facility] Comment on above: Result Comment: CUT- OFF POINTS HAVE BEEN ESTABLISHED BASED ON THE FOURTH UNIVERSAL DEFINITIONS OF MYOCARDIAL INFARCTION. THE UPPER REFERENCE LIMIT (URL) OF TROPONIN, DEFINED THE 99TH PERCENTILE OF cTnI DISTRIBUTION IN A REFERENCE POPULATION, HAS BEEN CONFIRMED THE DECISION THRESHOLD FOR MA DIAGNOSIS. Performed By: #### U RCX #### [facility] [address] [place] [address] Dr. Lisa Martinez URINE MICROSCOPIC ONLYon BACTERIA MODERATE Abnormal NONE SEEN [facility] Comment on above: Performed By: #### K U #### [facility] [address] [place] [address] Dr. Lisa Martinez Bacteria identified Cx Nom (U) INDICATED Normal [facility] Comment on above: Performed By: #### K U #### [facility] [address] [place] [address] Dr. Lisa Martinez CAST NONE SEEN Normal NONE SEEN [facility] Comment on above: Performed By: #### K U #### [facility] [address] [place] [address] Dr. Lisa Martinez Crystals LM Nom (Urine sed) NONE SEEN Normal NONE SEEN [facility] Comment on above: Performed By: #### K U #### [facility] [address] [place] [address] Dr. Lisa Martinez Epithelial cells LM Ql (Urine sed) RARE Normal NONE SEEN /RARE [facility] Comment on above: Performed By: #### K U #### [facility] [address] [address] [address] Lisa Martinez MUCOUS NONE SEEN Normal NONE SEEN [facility] Comment on above: Performed By: #### K U #### [facility] [address] [address] [address] Lisa Martinez RBC NONE SEEN Abnormal 0-2 [facility] Comment on above: Performed By: #### K U #### [facility] [address] [place] [address] Dr. Lisa Maritnez WBC 0-2 Abnormal NONE SEEN [facility] Comment on above: Performed By: #### K U #### [facility] [address] [place] [address] Dr. Lisa Martinez XR CHEST 1 Von [...] MEENA HAWKINS Date: 2022-04-30 07:42 Normal [facility] FREE T3on 04-12-2022 FREE T3 2.10 pg/mlL Critically low 2.18-3.98 [facility] Comment on above: Performed By: #### C VDTBH #### [facility] [address] [place] [address] Dr. Lisa Martinez FREE T4on 04-12-2022 Free T4 [Mass/Vol] 0.88 ng/dL Normal 0.76-1.46 [facility] Comment on above: Performed By: #### B LDCX2 #### [facility] [address] [place] [address] Dr. Lisa Martinez TSHon 04-12-2022 TSH 5.007 uIU/mL Critically high 0.358-3.740 [facility] Comment on above: Performed By: #### C VDTBH #### [facility] [address] [place] [address] Dr. Lisa Martinez US THYROIDon 04-12-2022 US [...] MEENA HAWKINS Date: 2022-04-12 13:20 Normal [facility] CBC AUTO DIFFon 02-12-2022 BASO # 0.1 103/ul Normal 0.0-0.1 [facility] Comment on above: Performed By: #### K U #### [facility] [address] [place] [address] Dr. Lisa Martinez Basophils/100 WBC (Bld) 0.7 % Normal 0.2-2.0 [facility] Comment on above: Performed By: #### K U #### [facility] [address] [place] [address] Dr. Lisa Martinez EO # 0.3 103/ul Normal 0.0-0.7 [facility] Comment on above: Performed By: #### K U #### [facility] [address] [place] [address] Dr. Lisa Martinez Eosinophils/100 WBC (Bld) 3.3 % Normal 0.9-7.0 [facility] Comment on above: Performed By: #### K U #### [facility] [address] [address] [address] Lisa Martinez Erythrocyte distribution width (RBC) [Ratio] 13.0 % Normal 11.0-15.0 [facility] Comment on above: Performed By: #### K U #### [facility] [address] [address] [address] Lisa Martinez Hematocrit (Bld) [Volume fraction] 34.6 % Critically low 36.0-48.0 [facility] Comment on above: Performed By: #### K U #### [facility] [address] [place] [address] Dr. Lisa Martinez Hemoglobin (Bld) [Mass/Vol] 11.1 g/dL Critically low 12.0-16.0 [facility] Comment on above: Performed By: #### K U #### [facility] [address] [place] [address] Dr. Lisa Martinez IG # 0.04 10e3/ul Critically high 0.00-0.03 [facility] Comment on above: Performed By: #### K U #### [facility] [address] [place] [address] Dr. iLsa Martinez IG % 0.4 % Normal 0.0-0.5 [facility] Comment on above: Performed By: #### K U #### [facility] [address] [place] [address] Dr. Lisa Martinez LYMPH # 1.0 103/ul Critically low 1.2-3.8 [facility] Comment on above: Performed By: #### K U #### [facility] [address] [place] [address] Dr. Lisa Martinez Lymphocytes/100 WBC (Bld) 10.6 % Critically low 20.5-60.0 [facility] Comment on above: Performed By: #### K U #### [facility] [address] [place] [address] Dr. Lisa Martinez MANUAL DIFF REQ NO Normal [facility] Comment on above: Performed By: #### K U #### [facility] [address] [place], [place] [id number] Dr. Lisa Martinez MCH (RBC) [Entitic mass] 31.3 pg Normal 26.7-34.0 [facility] Comment on above: Performed By: #### K U #### [facility] [address] [place] [address] Dr. Lisa Martinez MCHC (RBC) [Mass/Vol] 32.1 g/dL Normal 29.9-35.2 [facility] Comment on above: Performed By: #### K U #### [facility] [address] [place] [address] Dr. Lisa Martinez MCV (RBC) [Entitic vol] 97.5 fL Normal 81.0-99.0 [facility] Comment on above: Performed By: #### K U #### [facility] [address] [place] [address] Dr. Lisa Martinez MONO # 0.9 103/ul Critically high 0.3-0.8 The [facility] Comment on above: Performed By: #### K U #### [facility] [address] [place] [address] Dr. Lisa Martinez Monocytes/100 WBC (Bld) 9.5 % Normal 1.7-12.0 [facility] Comment on above: Performed By: #### K U #### [facility] [address] [place] [address] Dr. Lisa Martinez NEUT # 6.9 103/ul Critically high 1.4-6.5 The [facility] Comment on above: Performed By: #### K U #### [facility] [address] [place] [address] Dr. Lisa Martinez Neutrophils/100 WBC (Bld) 75.5 % Critically high 43.0-75.0 [facility] Comment on above: Performed By: #### K U #### [facility] [address] [place] [address] Dr. Lisa Martinez Platelet mean volume (Bld) [Entitic vol] 9.9 fL Normal 9.5-13.5 [facility] Comment on above: Performed By: #### K U #### [facility] [address] [address] [address] Lisa Martinez PLT 255 103/ul Normal 150-450 [facility] Comment on above: Performed By: #### K U #### [facility] [address] [address] [address] Lisa Martinez RBC 3.55 106/ul Critically low 4.20-5.40 [facility] Comment on above: Performed By: #### K U #### [facility] [address] [address] [address] Lisa Martinez WBC 9.2 103/ul Normal 4.0-11.0 [facility] Comment on above: Performed By: #### K U #### [facility] [address] [address] [address] Lisa Martinez CRPon 02-12-2022 CRP 0.7 mg/dL Normal <=1.0 [facility] Comment on above: Performed By: #### B METAL FURNITURE POLISHER, BMP #### [facility] [address] [address] [address] Lisa Martinez SED RATE WESTERGRENon 2021 SED RATE 56 mm/hr Critically high <=30 [facility] Comment on above: Performed By: #### S EDR ####[facility] [address] [address]Dr. Lisa Martinez URIC ACID SERUMon 02-12-2022 Urate [Mass/Vol] 9.2 mg/dL Critically high 2.6-6.0 [facility] Comment on above: Performed By: #### B METAL FURNITURE POLISHER, BMP #### [facility] [address] [address] [address] Lisa Martinez XR FOOT LT MIN [...] ROSINA MENENDEZ Date: 2022-02-12 13:01 Normal [facility] HEMOGRAM AND PLATELon 2021 Hematocrit (Bld) [Volume fraction] 35.7 % Critically low 36.0-48.0 [facility] Comment on above: Performed By: #### U RCX #### [facility] [address] [place] [address] Dr. Lisa Martinez Hemoglobin (Bld) [Mass/Vol] 11.7 g/dL Critically low 12.0-16.0 [facility] Comment on above: Performed By: #### U RCX #### [facility] [address] [place] [address] Dr. Lisa Martinez MCH (RBC) [Entitic mass] 31.5 pg Normal 26.7-34.0 [facility] Comment on above: Performed By: #### U RCX #### [facility] [address] [place] [address] Dr. Lisa Martinez MCHC (RBC) [Mass/Vol] 32.8 g/dL Normal 29.9-35.2 [facility] Comment on above: Performed By: #### U RCX #### [facility] [address] [place] [address] Dr. Lisa Martinez MCV (RBC) [Entitic vol] 96.2 fL Normal 81.0-99.0 [facility] Comment on above: Performed By: #### U RCX #### [facility] [address] [place] [address] Dr. Lisa Martinez PLT 268 103/ul Normal 150-450 [facility] Comment on above: Performed By: #### U RCX #### [facility] [address] [place] [address] Dr. Lisa Martinez RBC 3.71 106/ul Critically low 4.20-5.40 [facility] Comment on above: Performed By: #### U RCX #### [facility] [address] [place] [address] Dr. Lisa Martinez WBC 9.3 103/ul Normal 4.0-11.0 [facility] Comment on above: Performed By: #### U RCX #### [facility] [address] [address] [address] Lisa Martinez PROF CHEM 8 (BAS METB)on Anion gap [Moles/Vol] 11.2 mmol/L Normal Th [facility] Comment on above: Performed By: #### C VDTBH #### [facility] [address] [address] [address] Lisa Martinez Calcium [Mass/Vol] 9.1 mg/dL Normal 8.5-10.1 [facility] Comment on above: Performed By: #### C VDTBH #### [facility] [address] [address] [address] Lisa Martinez Chloride [Moles/Vol] 104 mmol/L Normal 98-107 [facility] Comment on above: Performed By: #### C VDTBH #### [facility] [address] [address] [address] Lisa Martinez CO2 [Moles/Vol] 30.6 mmol/L Normal 21.0-32.0 [facility] Comment on above: Performed By: #### C VDTBH #### [facility] [address] [address] [address] Lisa Martinez Creatinine [Mass/Vol] 1.64 mg/dL Critically high 0.55-1.02 [facility] Comment on above: Performed By: #### C VDTBH #### [facility] [address] [address] [address] Lisa Martinez EGFR-AF WALLISIAN 36 mL/min/1.73m2 Critically low >=60 [facility] Comment on above: Performed By: #### C VDTBH #### [facility] [address] [address] [address] Lisa Martinez EGFR-NON AF WALLISIAN 30 mL/min/1.73m2 Critically low >=60 [facility] Comment on above: Performed By: #### C VDTBH #### [facility] [address] [address] [address] Lisa Martinez Glucose [Mass/Vol] 61 mg/dL Critically low 74-106 [facility] Comment on above: Performed By: #### C VDTBH #### [facility] [address] [address] [address] Lisa Martinez Potassium [Moles/Vol] 4.8 mmol/L Normal 3.5-5.1 [facility] Comment on above: Performed By: #### C VDTBH #### [facility] [address] [address] [address] Lisa Martinez Sodium [Moles/Vol] 141 mmol/L Normal 136-145 [facility] Comment on above: Performed By: #### C VDTBH #### [facility] [address] [address] [address] Lisa Martinez Urea nitrogen [Mass/Vol] 34.0 mg/dL Critically high 7.0-18.0 [facility] Comment on above: Performed By: #### C VDTBH #### [facility] [address] [place] [address] Dr. Lisa Martinez Urea nitrogen/Creatinine [Mass ratio] 20.7 mg/mg Normal [facility] Comment on above: Performed By: #### C VDTBH #### [facility] [address] [place] [address] Dr. Lisa Martinez Cardiovascular Lab Reporton 12-21-2021 Cardiovascular Lab Report [facility] Patient Name: Jenni Quinones [facility] MR #: [id number] Physician: Josefina Villanueva Department of [facility] Service Date: 12/20/2021 Division of Birthdate: 1940 Cardiology Room #: Adult Cardiovascular Services [address] [place] [address] Cardiovascular Laboratory Report INDICATION: The patient is [...] the consent. She was brought to the laboratory scientist in a fasting state. The right neck area was prepped and draped in usual fashion. Micropuncture technique and ultrasound guidance were used for access in the right internal jugular vein. A 6-Cymro x 11 cm sheath was placed. A 6-Cymro Becker catheter was used for right heart [...] Nova M.D. Date Trans: 12/21/2021 06:38 A/kali [id number] cc: Jasvir León M.D. [address] [place] [address] [facility]07 SARS-CoV-2 (COVID-19) RNA RACIEL+probe Ql (Unsp spec) Not detected Normal NOT DETECTED [facility] Comment on above: Result Comment: This test is not yet approved or cleared by the [place] FDA. When there are no FDA-approved or cleared tests available, and other criteria are met, FDA can make tests available under an emergency access mechanism called an Emergency Use Authorization (EUA). The EUA for this test is supported by the [place] of Health and Human Service's (HHS's) declaration [...] SARS-CoV-2. Performed By: #### K U #### [facility] [address] [address] [address] Lisa Martinez HEMOGRAM AND PLATELon 2021 Hematocrit (Bld) [Volume fraction] 37.7 % Normal 36.0-48.0 [facility] Comment on above: Performed By: #### H H ####[facility] [address] [address]Dr. Lisa Martinez Hemoglobin (Bld) [Mass/Vol] 11.8 g/dL Critically low 12.0-16.0 [facility] Comment on above: Performed By: #### H H ####[facility] [address] [address]Dr. Lisa Martinez MCH (RBC) [Entitic mass] 30.7 pg Normal 26.7-34.0 [facility] Comment on above: Performed By: #### H H ####[facility] [address] [address]Dr. Lisa Martinez MCHC (RBC) [Mass/Vol] 31.3 g/dL Normal 29.9-35.2 [facility] Comment on above: Performed By: #### H H ####[facility] [address] [address]Dr. Lisa Martinez MCV (RBC) [Entitic vol] 98.2 fL Normal 81.0-99.0 [facility] Comment on above: Performed By: #### H H ####[facility] [address] [address]Dr. Lisa Martinez PLT 238 103/ul Normal 150-450 [facility] Comment on above: Performed By: #### H H ####[facility] [address] [place], [place] [address]Dr. Lisa Martinez RBC 3.84 106/ul Critically low 4.20-5.40 [facility] Comment on above: Performed By: #### H H ####[facility] [address] [place], [place] [address]DrIngrid Martinez WBC 8.6 103/ul Normal 4.0-11.0 [facility] Comment on above: Performed By: #### H H ####[facility] [address] [place], [place] [address]DrIngrid Martinez PROF CHEM 8 (BAS METB)on Anion gap [Moles/Vol] 13.7 mmol/L Normal [facility] Comment on above: Performed By: #### B MP ####[facility] [address] [address]DrIngrid Martinez Calcium [Mass/Vol] 9.1 mg/dL Normal 8.5-10.1 [facility] Comment on above: Performed By: #### B MP ####[facility] [address] [place], [place] [address]DrIngrid Martinez Chloride [Moles/Vol] 107 mmol/L Normal 98-107 [facility] Comment on above: Performed By: #### B MP ####[facility] [address] [place], [place] [address]DrIngrid Martinez CO2 [Moles/Vol] 26.9 mmol/L Normal 21.0-32.0 [facility] Comment on above: Performed By: #### B MP ####[facility] [address] [address]Dr. Lsia Martinez Creatinine [Mass/Vol] 1.48 mg/dL Critically high 0.55-1.02 [facility] Comment on above: Performed By: #### B MP ####[facility] [address] [place], [place] [address]Dr. Lisa Martinez EGFR-AF WALLISIAN 41 mL/min/1.73m2 Critically low >=60 [facility] Comment on above: Performed By: #### B MP ####[facility] [address] [place], [place] [address]Dr. Lisa Martinez EGFR-NON AF WALLISIAN 34 mL/min/1.73m2 Critically low >=60 [facility] Comment on above: Performed By: #### B MP ####[facility] [address] [place], [place] [address]Dr. Lisa Martinez Glucose [Mass/Vol] 161 mg/dL Critically high 74-106 [facility] Comment on above: Performed By: #### B MP ####[facility] [address] [place], [place] [address]Dr. Lisa Martinez Potassium [Moles/Vol] 4.6 mmol/L Normal 3.5-5.1 [facility] Comment on above: Performed By: #### B MP ####[facility] [address] [place], [place] [address]Dr. Lisa Martinez Sodium [Moles/Vol] 143 mmol/L Normal 136-145 [facility] Comment on above: Performed By: #### B MP ####[facility] [address] [place], [place] [address]Dr. Lisa Martinez Urea nitrogen [Mass/Vol] 35.0 mg/dL Critically high 7.0-18.0 [facility] Comment on above: Performed By: #### B MP ####[facility] [address] [place], [place] [address]Dr. Lisa Martinez Urea nitrogen/Creatinine [Mass ratio] 23.6 mg/mg Normal [facility] Comment on above: Performed By: #### B MP ####[facility] [address] [place], [place] [address]Gw. Lisa Martinez Comprehensive Metabolic Pane yesica 08-17-2021 Albumin [Mass/Vol] 4.4 g/dL Normal 3.6-5.1 [facility] Comment on above: Performed By: #### C MP #### [facility] [address], [place] [id number] Albumin/Globulin [Mass ratio] 1.4 {ratio} Normal 1.0-2.5 [facility] Comment on above: Performed By: #### C MP #### [facility] [address], [place] [id number] ALP [Catalytic activity/Vol] 89 U/L Normal 35-119 [facility] Comment on above: Performed By: #### C MP #### [facility] [address], [place] [id number] ALT [Catalytic activity/Vol] 13 U/L Normal 6-33 [facility] Comment on above: Result Comment: 06/08 Female reference range changed. Performed By: #### C MP #### [facility] [address], [place] [id number] Anion gap [Moles/Vol] 18 mmol/L Normal 12-20 [facility] Comment on above: Result Comment: Effe ctive 07/14/2019 reference range changed. Performed By: #### C MP #### [facility] [address], [place] [id number] AST [Catalytic activity/Vol] 20 U/L Normal 9-34 [facility] Comment on above: Performed By: #### C MP #### [facility] [address], [place] [id number] Bilirubin [Mass/Vol] 0.34 mg/dL Normal 0.30-1.20 [facility] [place] [facility] Comment on above: Performed By: #### C MP #### [facility] [address], [place] [id number] BUN/CREA 28 Ratio High 6-22 [facility] Comment on above: Performed By: #### C MP #### [facility] [address], [place] [id number] Calcium [Mass/Vol] 9.8 mg/dL Normal 8.6-10.2 [facility] Comment on above: Performed By: #### C MP #### [facility] [address], [place] [id number] Chloride [Moles/Vol] 106 mmol/L Normal 98-107 [facility] [place] [facility] Comment on above: Performed By: #### C MP #### [facility] [address], [place] [id number] CO2 [Moles/Vol] 23 mmol/L Normal 20-31 [facility] Comment on above: Performed By: #### C MP #### [facility] [address], [place] [id number] Creatinine [Mass/Vol] 1.1 mg/dL Normal 0.6-1.4 [facility] Comment on above: Performed By: #### C MP #### [facility] [address], [place] [id number] eGFRAA 59 mL/min/1.73m2 Low >60 [facility] Special[facility] Comment on above: Performed By: #### C MP #### [facility] [address], [place] [id number] eGFRNAA 49 mL/min/1.73m2 Low >60 [facility] Comment on above: Performed By: #### C MP #### [facility] [address], [place] [id number] Globulin (S) [Mass/Vol] 3.2 g/dL Normal 1.9-3.7 [facility] Comment on above: Performed By: #### C MP #### [facility] [address], [place] [id number] Glucose [Mass/Vol] 51 mg/dL Low 65-99 [facility] [place] [facility] Comment on above: Result Comment: For FASTING Glucose --- ADA reference ranges: Normal 65-99 mg/dl Prediabetes 100-125 Diabetes >/= 126 Performed By: #### C MP #### [facility] [address], [place] [id number] Potassium [Moles/Vol] 4.5 mmol/L Normal 3.5-5.5 [facility] Comment on above: Performed By: #### C MP #### [facility] [address], [place] [id number] Protein [Mass/Vol] 7.6 g/dL Normal 6.1-8.1 [facility] Specialist Comment on above: Performed By: #### C MP #### [facility] [address], [place] [id number] Sodium [Moles/Vol] 143 mmol/L Normal 135-146 [facility] Specialist Comment on above: Performed By: #### C MP #### [facility] [address], [place] [id number] Urea nitrogen [Mass/Vol] 31 mg/dL High 7-25 [facility] Comment on above: Performed By: #### C MP #### [facility] [address], [place] [id number] Complete Blood Counton 08-03 Erythrocyte distribution width (RBC) [Ratio] 13.2 % Normal 11.0-15.0 [facility] Comment on above: Performed By: #### C BC, TSH, FT3, FT4, CMP #### [facility] [address], [place] [id number] Hematocrit (Bld) [Volume fraction] 36.6 % Normal 35.0-47.0 [facility] Comment on above: Performed By: #### C BC, TSH, FT3, FT4, CMP #### [facility] [address], [place] [id number] Hemoglobin (Bld) [Mass/Vol] 11.4 g/dL Low 11.6-15.5 [facility] Comment on above: Performed By: #### C BC, TSH, FT3, FT4, CMP #### [facility] [address], [place] [id number] MCH (RBC) [Entitic mass] 31.1 pg Normal 27.0-33.0 [facility]ist Comment on above: Performed By: #### C BC, TSH, FT3, FT4, CMP #### [facility] [address], [place] [id number] MCHC (RBC) [Mass/Vol] 31.1 g/dL Low 32.0-36.0 [facility] Comment on above: Performed By: #### C BC, TSH, FT3, FT4, CMP #### [facility] [address], [place] [id number] MCV (RBC) [Entitic vol] 100 fL Normal 80-100 [facility]ist Comment on above: Performed By: #### C BC, TSH, FT3, FT4, CMP #### [facility] [address], [place] [id number] Platelet mean volume (Bld) [Entitic vol] 10.10 fL Normal 7.50-12.50 [facility] Comment on above: Performed By: #### C BC, TSH, FT3, FT4, CMP #### [facility] [address], [place] [id number] Platelets (Bld) [#/Vol] 245 10*3/uL Normal 140-400 [facility] Specialist Comment on above: Performed By: #### C BC, TSH, FT3, FT4, CMP #### [facility] [address], [place] [id number] RBC (Bld) [#/Vol] 3.66 10*6/uL Low 3.90-5.20 [facility] Comment on above: Performed By: #### C BC, TSH, FT3, FT4, CMP #### [facility] [address], [place] [id number] RDW-SD 48.1 fL Normal 37.0-50.0 [facility] Comment on above: Performed By: #### C BC, TSH, FT3, FT4, CMP #### [facility] [address], [place] [id number] WBC (Bld) [#/Vol] 8.7 10*3/uL Normal 3.8-11.0 [facility] [place] [facility] Comment on above: Performed By: #### C BC, TSH, FT3, FT4, CMP #### [facility] [address], [place] [id number] Comprehensive Metabolic Pane yesica 08-03-2021 Albumin [Mass/Vol] 3.9 g/dL Normal 3.6-5.1 [facility] [place] [facility] Comment on above: Performed By: #### C BC, TSH, FT3, FT4, CMP #### [facility] [address], [place] [id number] Albumin/Globulin [Mass ratio] 1.1 {ratio} Normal 1.0-2.5 [facility] Comment on above: Performed By: #### C BC, TSH, FT3, FT4, CMP #### [facility] [address], [place] [id number] ALP [Catalytic activity/Vol] 105 U/L Normal 35-119 [facility] Comment on above: Performed By: #### C BC, TSH, FT3, FT4, CMP #### [facility] [address], [place] [id number] ALT [Catalytic activity/Vol] 10 U/L Normal 6-33 [facility] Comment on above: Result Comment: 06/08 Female reference range changed. Performed By: #### C BC, TSH, FT3, FT4, CMP #### [facility] [address], [place] [id number] Anion gap [Moles/Vol] 20 mmol/L Normal 12-20 [facility] Specialist Comment on above: Result Comment: Effe ctive 07/14/2019 reference range changed. Performed By: #### C BC, TSH, FT3, FT4, CMP #### [facility] [address] [facility] [place] [id number] AST [Catalytic activity/Vol] 19 U/L Normal 9-34 [facility] Comment on above: Performed By: #### C BC, TSH, FT3, FT4, CMP #### [facility] [address], [place] [id number] BUN/CREA 24 Ratio High 6-22 [facility] Nurse Comment on above: Performed By: #### C BC, TSH, FT3, FT4, CMP #### [facility] [address], [place] [id number] Calcium [Mass/Vol] 9.6 mg/dL Normal 8.6-10.2 [facility] Comment on above: Performed By: #### C BC, TSH, FT3, FT4, CMP #### [facility] [address], [place] [id number] Chloride [Moles/Vol] 106 mmol/L Normal 98-107 [facility] [place] [facility] Comment on above: Performed By: #### C BC, TSH, FT3, FT4, CMP #### [facility] [address], [place] [id number] CO2 [Moles/Vol] 21 mmol/L Normal 20-31 [facility] Comment on above: Performed By: #### C BC, TSH, FT3, FT4, CMP #### [facility] [address], [place] [id number] Creatinine [Mass/Vol] 2.6 mg/dL High 0.6-1.4 [facility] Comment on above: Performed By: #### C BC, TSH, FT3, FT4, CMP #### [facility] [address], [place] [id number] eGFRAA 22 mL/min/1.73m2 Low >60 [facility] Comment on above: Performed By: #### C BC, TSH, FT3, FT4, CMP #### [facility] [address], [place] [id number] eGFRNAA 18 mL/min/1.73m2 Low >60 [facility] Comment on above: Performed By: #### C BC, TSH, FT3, FT4, CMP #### [facility] [address], [place] [id number] Globulin (S) [Mass/Vol] 3.4 g/dL Normal 1.9-3.7 [facility] Comment on above: Performed By: #### C BC, TSH, FT3, FT4, CMP #### [facility] [address], [place] [id number] Glucose [Mass/Vol] 93 mg/dL Normal 65-99 [facility] [place] [facility] Comment on above: Result Comment: For FASTING Glucose --- ADA reference ranges: Normal 65-99 mg/dl Prediabetes 100-125 Diabetes >/= 126 Performed By: #### C BC, TSH, FT3, FT4, CMP #### [facility] [address], [place] [id number] Potassium [Moles/Vol] 6.9 mmol/L Critically high 3.5-5.5 [facility] Nurse Comment on above: Result Comment: Repo rt given to Dr León (Ragini) Performed By: #### C BC, TSH, FT3, FT4, CMP #### [facility] [address], [place] [id number] Protein [Mass/Vol] 7.3 g/dL Normal 6.1-8.1 [place] [facility] [place] [facility] Comment on above: Performed By: #### C BC, TSH, FT3, FT4, CMP #### [facility] [address], [place] [id number] Sodium [Moles/Vol] 139 mmol/L Normal 135-146 [facility] rn [place] [facility] Comment on above: Performed By: #### C BC, TSH, FT3, FT4, CMP #### [facility] [address], [place] [id number] TBIL <0.3 Normal [facility] Comment on above: Performed By: #### C BC, TSH, FT3, FT4, CMP #### [facility] [address], [place] [id number] Urea nitrogen [Mass/Vol] 62 mg/dL High 7-25 [facility] Comment on above: Performed By: #### C BC, TSH, FT3, FT4, CMP #### [facility] [address] [place], [place] [id number] Free T3on 08-03-2021 FT3 2.05 pg/mL Normal 2.00-4.40 [facility] Telehealth Nurse Comment on above: Performed By: #### C BC, TSH, FT3, FT4, CMP #### [facility] [address], [place] [id number] Free T4on 08-03-2021 Free T4 [Mass/Vol] 0.91 ng/dL Normal 0.80-1.80 [facility] Telehealth Nurse Comment on above: Performed By: #### C BC, TSH, FT3, FT4, CMP #### [facility] [address], [place] [id number] Q - B-TYPE NATRIURETIC (BNP) on 08-03-2021 Natriuretic peptide B (Bld) [Mass/Vol] 283 pg/mL High <100 [facility] Tele[facility] Nurse Comment on above: Order Comment: [facility] Testing performed at: [place], [employer] [facility], [address] [facility], [address] [place], [address], Computer Designer: Boone Calderón MD [facility] Collection Date/Time: [id number] [facility] Results Received Date/Time: [facility] Reported Date/Time: Result Comment: BNP levels increase with age in the general population with the highest values seen in individuals greater than 75 years of age. Reference: J. Am. Priya. Cardiol. 2002; 40:976-982. Performed By: #### [id number] #### [facility] Default [address] [place] [address] TSHon 08-03-2021 TSH 3.450 uIU/mL Normal 0.400-4.500 [facility] Telehealth Nurse Comment on above: Performed By: #### C BC, TSH, FT3, FT4, CMP #### [facility] [address], [place] [id number] COVID Quick Testingon 2020 Result Negative [facility] Other Quick Fluon 06-06-2021 FLUAV Ab CF (S) [Titer] Negative [employer] Other FLUBV Ab CF (S) [Titer] Negative [employer] Other Vital Signs Date Time Vital Sign Value Performing Clinician Facility 05-08-2024 11:16-0400 Body height 154.9 cm Jasvir León MD Work Phone: [facility] 05-08-2024 11:16-0400 Body mass index (BMI) [Ratio] 27.78 kg/m2 Jasvir León MD Work Phone: [facility] 05-08-2024 11:16-0400 Body weight 66.68 kg Jasvir León MD Work Phone: [facility] 05-08-2024 11:16-0400 Diastolic blood pressure 70 mm[Hg] Jasvir León MD Work Phone: [facility] 05-08-2024 11:16-0400 Heart rate 58 /min Jasvir León MD Work Phone: [facility] 05-08-2024 11:16-0400 SaO2% (BldA) [Mass fraction] 96 % Jasvir León MD Work Phone: [facility] 05-08-2024 11:16-0400 Systolic blood pressure 128 mm[Hg] Jasvir León MD Work Phone: [facility] 04-25-2024 16:40-0400 Body height 157.48 cm II Jasvir León Work Phone: [facility] 04-25-2024 13:31-0400 Diastolic blood pressure 69 mm[Hg] II Jasvir León Work Phone: [facility] 04-25-2024 13:31-0400 Heart rate 76 /min II Jasvir León Work Phone: [facility] 04-25-2024 13:31-0400 Systolic blood pressure 157 mm[Hg] II Jasvir León Work Phone: [facility] 04-25-2024 12:00-0400 Inhaled oxygen flow rate 3 L/min II Jasvir León Work Phone: [facility] 04-25-2024 08:00-0400 Body temperature 97.7 [degF] II Jasvir León Work Phone: [facility] 04-25-2024 08:00-0400 Respiratory rate 22 /min II Jasvir León Work Phone: [facility] 04-25-2024 08:00-0400 SaO2% (BldA) [Mass fraction] 98 % II Jasvir León Work Phone: [facility] 04-25-2024 02:25-0400 Body weight 75.2 kg II Jasvir León Work Phone: [facility] 08-07-2023 10:53-0500 Diastolic blood pressure 64 mm[Hg] Kd Hines MD Work Phone: [employer] 08-07-2023 10:53-0500 Heart rate 109 /min Kd Hines MD Work Phone: [employer] 08-07-2023 10:53-0500 Respiratory rate 18 /min Kd Hines MD Work Phone: [employer] 08-07-2023 10:53-0500 SaO2% (BldA) [Mass fraction] 90 % Kd Hines MD Work Phone: [employer] 08-07-2023 10:53-0500 Systolic blood pressure 94 mm[Hg] Kd Hines MD Work Phone: [employer] 06-06-2021 12:45-0500 Body height 157.48 cm Mariam Ward Other [employer] Other 06-06-2021 12:45-0500 Body mass index (BMI) [Ratio] 34.75 kg/m2 Mariam Lethantcarlos Other [employer] Other 06-06-2021 12:45-0500 Body temperature 96.8 [degF] Mariam Lethanty Other [employer] Other 06-06-2021 12:45-0500 Body weight 86.18 kg Mariam Lethanty Other [employer] Other 06-06-2021 12:45-0500 Diastolic blood pressure 78 mm[Hg] Mariam Sylvia Other [employer] Other 06-06-2021 12:45-0500 SaO2% (BldA) [Mass fraction] 94 % Mariam Monaentcarlos Other [employer] Other 06-06-2021 12:45-0500 Systolic blood pressure 131 mm[Hg] Mariam Lethantcarlos Other [employer] Other Encounters Encounter Date Encounter Type Care Provider Facility Start: 07-25-2024 End: 07-25-2024 ambulatory [facility] Start: 07-22-2024 End: 07-22-2024 Clinisync Result Encounter Generic External Data Provider [facility] External Department Unsolicited Start: 07-22-2024 End: 07-22-2024 Clinisync Result Encounter Generic External Data Provider [facility] External Department Unsolicited Start: 07-11-2024 End: 07-11-2024 ambulatory [facility] Start: 06-26-2024 End: 06-27-2024 Refill Bev [...] Start: 06-11-2024 Evaluation and management of inpatient [facility] Start: 06-11-2024 Evaluation and management of inpatient [facility] Start: 06-10-2024 Evaluation and management of inpatient [facility] Start: 06-10-2024 End: 06-11-2024 Evaluation and management of inpatient [facility] Start: 06-10-2024 End: 06-10-2024 ambulatory [facility] Start: 06-02-2024 End: 06-02-2024 Clinisync Result Encounter Generic External Data Provider [facility] External Department Unsolicited Start: 06-02-2024 End: 06-02-2024 Clinisync Result Encounter Generic External Data Provider [facility] External Department Unsolicited Start: 06-02-2024 End: 06-02-2024 ambulatory [facility] Start: [facility] Start: 05-29-2024 End: 05-29-2024 ambulatory [facility] Start: 05-29-2024 End: 05-29-2024 ambulatory [facility] Start: 05-27-2024 End: 05-27-2024 ambulatory [facility] Start: 05-26-2024 End: 05-26-2024 Clinisync Result Encounter Generic External Data Provider [facility] External Department Unsolicited Start: 05-26-2024 End: 05-26-2024 Clinisync Result Encounter Generic External Data Provider [facility] External Department Unsolicited Start: 05-13-2024 End: 05-13-2024 ambulatory BRENT [facility] Start: 05-08-2024 End: 05-08-2024 Clemenitna León MD Work Phone: [facility] [...] of inpatient II Jasvir León Work Phone: [facility] Work Phone: Start: 03-17-2024 End: 03-17-2024 Telephone encounter Jasvir León MD Work Phone: [facility] Comment on above: covid Start: 02-18-2024 End: 02-18-2024 ambulatory JASVIR LEÓN Not Available Start: 01-07-2024 End: 01-07-2024 ambulatory [facility] Start: 12-26-2023 End: 12-26-2023 ambulatory JASVIR LEÓN Not Available Start: 12-07-2023 End: 12-07-2023 ambulatory [facility] Start: 10-09-2023 End: 10-09-2023 ambulatory SARAH RODRIGUEZ Not Available Start: 08-07-2023 End: 08-07-2023 ambulatory KD [facility] Start: 08-07-2023 End: 08-07-2023 Subsequent hospital visit by physician Kd Hines MD Work Phone: [facility] Start: 08-02-2023 End: 08-02-2023 ambulatory JASVIR LEÓN Not Available Start: 07-30-2023 End: 07-30-2023 ambulatory DAWOOD ALEXANDRE Not Available Start: 06-28-2023 End: 06-28-2023 ambulatory ODALYS RUSSO Not Available Start: 05-29-2023 End: 05-29-2023 ambulatory [facility] Start: 05-23-2023 End: 05-23-2023 ambulatory JASVIR LEÓN Not Available Start: 05-09-2023 ambulatory JASVIR LEÓN [facility] Start: 05-09-2023 End: 05-09-2023 ambulatory KD HINES [facility] Start: 12-06-2022 ambulatory BRENT ZAIDI Facility [...] Encounter for preprocedural laboratory examination GRETTA OMALLEY [facility] Start: 12-20-2021 End: 12-21-2021 ambulatory GRETTA OMALLEY Facility:[facility] Start: 12-16-2021 End: 12-17-2021 ambulatory GRETTA OMALLEY Facility:[facility] Start: 12-16-2021 End: 12-17-2021 Encounter for preprocedural laboratory examination GRETTA OMALLEY Facility:[facility] Start: 06-06-2021 End: 06-06-2021 ambulatory Mariam Ward Other [employer] Other Start: 06-06-2021 Office outpatient vi sit 15 minutes Mariam Johannay [facility] [place] Procedures Date Procedure Procedure Detail Performing Clinician Start: 07-22-2024 ALL BASIC METABOLIC PANEL Generic External Data Provider Start: 06-23-2024 ALL CBC WITH AUTO DIFF Generic External Data Provider Start: 06-02-2024 [facility] CMP (CMP) (FOR REMOTE COMM[facility]ITY [facility] USE) Generic External Data Provider Start: 05-26-2024 [...] 07-30-2025 Glaucoma screening Diabetes: R etinopathy Screening [facility] Start: 11-19-2024 End: 11-19-2024 Patient encounter procedure 11/19/2024 11:00 AM EDT Office Visit [facility] [address] [place] [address] Ariel Foss MD [address] [place] [address] [facility] Start: 08-02-2024 Urine screening for protein Diabetes: Urine Protein Screening [facility] Start: 06-09-2024 End: 06-09-2024 Patient encounter procedure 06/09/2024 11:30 AM EST Office Visit [facility] [address] [place] [id number] Jasvir León MD [address] [place] [address] [facility] Start: 05-19-2024 End: 05-19-2024 Patient encounter procedure 05/19/2024 10:45 AM EST Office Visit [facility] [address] [place] [id number] Jasvir León MD [address] [facility] [address] [place] [address] [facility] Start: 05-08-2024 End: 05-08-2024 Patient encounter procedure [facility] Comment on above: Arrived Start: 04-25-2024 [facility] Start: 04-25-2024 Radionuclide myocard ial perfusion stress study NM lissy perf SPECT rest & str [facility] Start: 04-25-2024 Catheterization of l eft heart CL *Left Heart Cath (LHC) [facility] Start: 04-25-2024 Hospital admission [facility] Start: 03-27-2024 Hemoglobin A1c measurement Diabetes: Hemoglobin A1C [facility] Start: 03-09-2024 Influenza vaccination Influenza Vacc ine (#1) [facility] Start: 11-14-2023 Urine screening for protein Diabetes: Urine Protein Screening [facility] Start: 08-07-2023 End: 08-07-2023 Njx dx/ther agt pvrt facet jt lmbr/sac 1 level LUMBAR MEDIAL BRANCH BLOCK Lumbar spondylosis 08/07/2023 10:37 AM [facility] Start: 08-07-2023 End: 08-07-2023 Njx dx/ther agt pvrt facet jt lmbr/sac 2nd level LUMBAR MEDIAL BRANCH BLOCK Lumbar spondylosis 08/07/2023 10:37 AM [facility] Start: 06-04-2023 Annual Wellness Visi t (Medicare) Annual Wellness Visit (Medicare) [facility] Start: 1999 Respiratory Syncytia l Virus (RSV) or age 60 yrs+ (1 - 1-dose 60+ series) Respiratory Syncytial Virus (RSV) or age 60 yrs+ (1 - 1-dose 60+ series) [facility] Start: 1958 DTaP/Tdap/Td vaccine (1 - Tdap) DTaP/Tdap/Td vaccine (1 - Tdap) [facility] Start: 1951 Depression Screen Depression Screen [facility] Start: 1949 Lipid panel Lipids [facility] Oxygen therapy [[facility] Data Set] Initiate Oxygen Therapy Protocol Respiratory Care Routine As Needed until discontinued starting 08/07/2023 BRANDO Work Phone: Comment on above: As Needed until disc ontinued starting 08/07/2023 Patient referral [facility] Work Phone: Immunizations Immunization Date Immunization Notes Care Provider [facility] 04-12-2024 pneumococcal polysaccharide vaccine, 23 valent Generic Provider [facility] 04-12-2024 Seasonal trivalent influenza vaccine, adjuvanted, preservative free Generic Provider [facility] 09-11-2023 zoster vaccine recombinant Jasvir León MD Work Phone: [facility] 06-06-2023 zoster vaccine recombinant Jasvir León MD Work Phone: [facility] 05-21-2023 Pfizer Coleman Cap SARS-CoV-2 Vaccination Jasvir León MD Work Phone: [facility] Work Phone: 05-13-2023 Influenza, Seasonal, Quadrivalent, Adjuvanted Jasvir León MD Work Phone: [facility] 05-13-2023 influenza virus vaccine, unspecified formulation Jasvir León MD Work Phone: [facility] 05-16-2021 SARS-CoV-2, Unspecified eLxa León MD Work Phone: [facility] 04-29-2021 influenza, high dose seasonal, preservative-free Jasvir León MD Work Phone: [facility] 04-29-2021 Influenza, Seasonal, Quadrivalent, Adjuvanted Jasvir León MD Work Phone: [facility] 08-29-2020 SARS-CoV-2, Unspecified Lexa León MD Work Phone: [facility] 07-31-2020 SARS-CoV-2, Unspecified Lexa León MD Work Phone: [facility] 03-22-2020 influenza, injectabl e, quadrivalent, preservative free Jasvir León MD Work Phone: [facility] 06-12-2019 zoster vaccine recombinant Jasvir León MD Work Phone: [facility] 03-20-2019 Seasonal trivalent influenza vaccine, adjuvanted, preservative free Jasvir León MD Work Phone: [facility] 03-20-2019 zoster vaccine recombinant Jasvir León MD Work Phone: [facility] 04-22-2018 influenza, high dose seasonal, preservative-free Jasvir León MD Work Phone: [facility] 03-29-2017 influenza, high dose seasonal, preservative-free Jasvir León MD Work Phone: [facility] 08-26-2016 pneumococcal conjuga te vaccine, 13 valent Jasvir León MD Work Phone: [facility] 03-30-2016 influenza, injectabl e, quadrivalent, contains preservative Jasvir León MD Work Phone: [facility] 03-30-2016 influenza, injectabl e, quadrivalent, preservative free Jasvir León MD Work Phone: [facility] 03-25-2015 pneumococcal polysaccharide vaccine, 23 valent Jasvir León MD Work Phone: [facility] 03-25-2015 seasonal influenza, intradermal, preservative free Jasvir León MD Work Phone: [facility] 04-02-2014 seasonal influenza, intradermal, preservative free Jasvir León MD Work Phone: [facility] 03-31-2014 tetanus and diphther ia toxoids, adsorbed, preservative free, for adult use (5 Lf of tetanus toxoid and 2 Lf of diphtheria toxoid) JEWELL León Work Phone: [facility] 03-31-2014 tetanus toxoid, redu seymour diphtheria toxoid, and acellular pertussis vaccine, adsorbed Mariam Ginty Other [employer] Other 09-01-2013 tetanus and diphther ia toxoids, adsorbed, preservative free, for adult use (5 Lf of tetanus toxoid and 2 Lf of diphtheria toxoid) II Jasvir León Work Phone: [facility] 09-01-2013 tetanus toxoid, redu seymour diphtheria toxoid, and acellular pertussis vaccine, adsorbed Mariam Ward Other [employer] Other 03-25-2012 zoster vaccine, live Jasvir León MD Work Phone: [facility] 04-26-2010 pneumococcal polysaccharide vaccine, 23 valent Jasvir León MD Work Phone: [facility] Payers Date Payer Category Payer Self-pay 2022 [employer] others) [id number] 2016 [employer] ( [employer] others) [id number] 2016 [employer] ( and others) FOR LIFE [id number] 2016-Present [address] [place] [address] [id number] 2016 () [id number] .[id number] 2016 [employer] ( and others) [id number] 2004 Medicare [id number] .[id number] 1959 [employer] ( and others) [id number] 1959 Medicare [id number] 1939 Unknown [id number] 2.16.840.1.766883.3.579.2 .647 1939 Unknown [id number] 2.16.840.1.131779.3.579.2 .593 1939 Unknown [id number] 2.16.840.1.945229.3.579.2 .593 1939 Unknown [id number] 2.16.840.1.091823.3.579.2 .593 1939 Unknown [id number] 2.16.840.1.662397.3.579.2 .593 1939 Unknown [id number] 2.16.840.1.655100.3.579.2 .593 1939 Unknown [id number] 2.16.840.1.271105.3.579.2 .593 1939 Unknown [id number] 2.16.840.1.344352.3.579.2 .593 1939 Unknown [id number] 2.16.840.1.671386.3.579.2 .593 1939 Unknown [id number] 2.16.840.1.666483.3.579.2 .593 1939 Unknown [id number] 2.16.840.1.516150.3.579.2 .593 1939 Unknown [id number] 2.16.840.1.028067.3.579.2 .593 1939 Unknown [id number] 2.16.840.1.884643.3.579.2 .593 1939 Unknown [id number] 2.16.840.1.576591.3.579.2 .593 1939 Unknown [id number] 2.16.840.1.521695.3.579.2 .593 1939 Unknown [id number] 2.16.840.1.132903.3.579.2 .754 1939 Unknown [id number] 2.16.840.1.937337.3.579.2 .754 1939 Unknown [id number] 2.16.840.1.534261.3.579.2 .754 1939 Unknown [id number] 2.16.840.1.476160.3.579.2 .754 1939 Unknown [id number] 2.16.840.1.914578.3.579.2 .1259 1939 Unknown [id number] 2.16.840.1.566152.3.579.2 .125 1939 Unknown [id number] 2.16.840.1.968799.3.579.2 .1259 1939 Unknown [id number] 2.16.840.1.762715.3.579.2 .9 1939 Unknown [id number] 2.16.840.1.806739.3.579.2 .1259 1939 Unknown [id number] 2.16.840.1.881222.3.579.2 .1259 1939 Unknown [id number] 2.16.840.1.231942.3.579.2 .1259 1939 Unknown [id number] 2.16.840.1.385916.3.579.2 .1259 Medicare [id number] 2.16.840.1.414460.19 Unknown [id number] 2.16.840.1.133062.3.579.2 .531 Social History Date Type Detail Facility Start: 05-30-2023 End: 07-10-2024 [facility] Other Start: 12-11-2022 End: 05-08-2023 Tobacco smoking status CTIS Ex-smoker [facility] Phone: End: 07-09-1996 History of tobacco use Current smoker [facility] Phone: End: 07-09-1996 History of tobacco use Cigarette Smoker [facility] Phone: Start: 12-11-2022 End: 05-08-2023 Tobacco use and exposure Smokeless tobacco non-user [facility] Phone: Start: 05-30-2023 Alcohol intake Ex-drinker (finding) [facility] Phone: Start: 05-30-2023 End: 07-10-2024 History of Social function [facility] Phone: Start: 05-08-2023 Alcohol Comment social [facility] Phone: Start: 1940 Sex Assigned At Not on file [employer] Work Phone: Start: 1940 Sex Assigned At Female [facility] Start: 04-28-2024 End: 06-11-2024 Alcoholic beverage [...] Equipment Identifier Dates Kyphon [employer] [id number] Start: 05-09-2023 Comment on above: Description: T12 Ref# [id number] by In Vitro route [id number] 1 each by Other route in the morning and 1 each in the evening and 1 each before bedtime. Use as instructed. [id number] Start: 06-29-2023 End: 06-28-2024 Goals Date Patient Goal Desired Activity /State Clinical Notes 06-06-2021 to 07-25-2024 Jasvir León MD - 05/08/2024 11:15 AM EDTTelephone Encounter - ZOEY An - 04/29/2024 4:55 PM EDTTelephone Encounter - ZOEY An - 04/29/2024 4:55 PM EDT Note Date & Type Note Facility 07-25-2024 Note [facility] - [facility] Subjective Jenni Quinones is a 84 [...] SOB is worsening. 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 Patient Active Problem List Diagnosis Anemia Diastolic [...] of iron deficiency Heart valve transplanted Hyperthyroidism intermediate card tender current use of anticoagulant therapy Mixed anxiety [...] She has history of prior admissions to [facility] with AF/RVR and diastolic heart failure [...] A transthoracic e (more content not included)... [facility] 06-23-2024 Note [facility] Cardiology - [facility] Subjective Jenni Quinones is a 84 [...] of iron deficiency Heart valve transplanted Hyperthyroidism intermediate card tender current use of anticoagulant therapy Mixed anxiety [...] She has history of prior admissions to [facility] with AF/RVR and diastolic heart failure [...] echocardiogram showed evide (more content not included)... [facility] 06-11-2024 Note Surgical Intensive C [...] She has history of prior admissions to [facility] with AF/RVR and diastolic heart failure [...] Interval 434 ms QTC CALCULATION(BAZETT) 447 ms R-[place] -19 degrees T Wave [place] 148 degrees POCT glucose meter Collection Time: [...] 106 QT Interval 434 QTC CALCULATION(BAZETT) 447 R-[place] -19 T Wave [place] 148 Impression Atrial fibrillation Moderate voltage criteria [...] Problem List: - (more content not included)... [facility] 06-11-2024 Note Cardiothoracic Surge ry Post Operative Progress Note 06/11/2024 Room: [facility]8/222- Post Op Day: 1 Day Post-Op [...] aortic valve replacement. 06/10 s/p Underwent Successful [id number] transcatheter aortic valve replacement using a 23 [...] Aortic stenosis, severe 84y.o. F POD #1 [id number] transcatheter aortic valve replacement using a 23 [...] Cardiothoracic Surgery Inpatient from 8am-4pm call Ascom #[phone]. Only use epic chat for general questions. If unable to reach Ascom Number call hospital horizontal resaw operator for Cardiothoracic Provider Motor Equipment Sergeant. Cardiothoracic Surgery outpatient Office Number [phone]. Cardiothoracic Surgery outpatient . .att As the [...] with them. Craig Braun MD CT Surgery [facility] 06-11-2024 Note Cardiothoracic Surge ry Progress Note 06/11/2024 Room: [address] [place] [address] Jenni Quinones is a 84 y.o. 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 She was evaluated in Cardiology and Cardiothoracic Surgery Clinics, and was deemed appropriate for TAVR as treatment for her aortic valve stenosis given high surgical risk for a redo aortic valve replacement. 06/10 s/p Underwent Successful oxsuf-ud-eueho transcatheter aortic valve replacement using a 23 [...] Value Date WBC (more content not included)... [facility] 06-10-2024 Note Pharmacy Dosing Serv ice - Vancomycin Initial Consult Note Pharmacy has been consulted for the dosing and evaluation of Drug: Vancomycin Indication: Surgical Prophylaxis x 24 hours post op Other Antimicrobial Regimens: none Labs and Renal Function Total body weight: 62.6 kg (138 lb) [place] body weight: 50.1 kg (110 lb 7.2 [...] for infection, please re-consult and we will [id number]. -Please do not hesitate to contact us with comments or questions Thank you, Isamar Chavez, PharmD, 06/10/24 [facility] 06-10-2024 Note Craig Braun MD [...] access for the TAVR procedure. PROCEDURES: Successful ycvwe-[id number] transcatheter aortic valve replacement using a 23 mm Zarate Shahram 3 Ultra valve deployed at nominal volume via percutaneous transfemoral access. Placement of a temporary pacemaker wire. Left heart catheterization. Access into the left subclavian artery, left radial artery, left common femoral artery and vein under ultrasound guidance. Left axillary artery angiogram. Preclosure in the left axillary artery using two 6-Cymro ProGlide devices. Balloon aortic valvuloplasty. OPERATORS: Interventional Cardiology Anesthesiology Medical Doctor: Josefina Nova MD Cardiac Surgery Anesthesiology Medical Doctor: Craig Braun MD [place] Interventional Cardiology Anesthesiology Medical Doctor: Ángel Lim MD METHODS: Procedure was explained to the patient with risks and benefits. she signed informed consent. she was brought to laboratory scientist in a fasting state. The procedure was performed in the cardiac laboratory scientist under conscious sedation. The left groin area, the left wrist area, and the left shoulder area were prepped and draped in usual fashion. Micropuncture technique and ultrasound guidance were used for access in the left common femoral artery and inner cannula angiography was performed followed by upsizing to a 6-Cymro x 11 cm sheath. The same was done for the access in the left common femoral vein. Ultrasound guidance was used for micropuncture access in the left radial artery and a 4-Cymro x 11 cm introducer sheath was secured [...] cannular angiography followed by upsizing to a 6-Cymro x 11 cm sheath. At this time, we proceeded with the preclosure in the left axillary artery using 2 crossing Perclose devices and the access was then upsized over a wire to a 10-Cymro sheath. A 5-Cymro balloon-tipped pacemaker wire was advanced through the left common femoral vein sheath to the right ventricular apex and adequate capture was confirmed. Heparin was given intravenously and therapeutic ACT confirmed during the rest of the procedure and additional heparin given as needed. A 6 Cymro JL 3.5 guiding catheter was advanced through the left common femoral arterial sheath and used to engage the left coronary artery. Angiography was performed. A Prowater wire was advanced into the distal LAD. This was placed for protection of the left main given moderate risk for coronary obstruction. A 6-Cymro AR1 diagnostic catheter was advanced via the axillary sheath, and using a straight stiff Glidewire, the aortic valve was crossed and the catheter was advanced in the left ventricular cavity, and using an exchange length J-wire, a 6-Cymro angled pigtail catheter was advanced to make [...] length amplatz extra stiff wire to the 14-Cymro Zarate E-sheath. The sheath was secured in place. Based on the prior CT scan measurements and the iivyj-bh-foyod erika, we proceeded with a Zarate Shahram [...] valve was exchanged (more content not included)... [facility] 06-10-2024 Note Patient: Jenni Liao se Procedure Information Date/Time: 06/10/24 1130 Procedure: TAVR - PC APPROVED Location: [facility] CUST[facility]ER ACCOUNTS ADVISOR 3 / [facility] (Cath) Providers: Josefina Nova MD [...] consented to blood products. Additional Equipment Requests [facility] 06-02-2024 Note MS Cardiology - [facility] Subjective Jenni Quinones is a 84 [...] of iron deficiency Heart valve transplanted Hyperthyroidism intermediate card tender current use of anticoagulant therapy Mixed anxiety [...] She has history of prior admissions to [facility] with AF/RVR and diastolic heart failure [...] coronary artery disease (more content not included)... [facility] 05-29-2024 Note Cardiothoracic Surge ry [...] and Other Diagnostic Testing. Findings discussed with master deputy sheriff court security and patient. Explained current disease process and [...] (PriLOSEC) 40 m (more content not included)... [facility] 05-27-2024 Note Patient: Jenni Liao se Procedure Information Date/Time: 05/27/24 1000 Procedures: Right heart cath Coronary angiography Location: [facility] CUST[facility]ER ACCOUNTS ADVISOR 3 / [facility] (Cath) Providers: Josefina Nova MD [...] consented to blood products. Additional Equipment Requests [facility] 05-27-2024 Note Patient: Jenni Liao [...] Plan discussed with attending. Additional Equipment Requests [facility] 05-27-2024 Note Report given to Torey turner RN. RN verbalized how FARA went and medications given during the procedure. [facility] 05-13-2024 Note Cardiovascular Medic [facility] SUBJECTIVE Chief Complaint Patient presents with [...] c/o chest pain. She was transferred to [facility] for further cardiac care. She [...] of iron deficiency Heart valve transplanted Hyperthyroidism intermediate card tender current use of anticoagulant therapy Mixed anxiety [...] tablet, Rfl: 0 (more content not included)... [facility] 05-13-2024 Note Patient here for 3 m o follow up aortic/mitral valve stenosis, diastolic heart failure, and permanent afib. She was admitted to [facility] a few weeks ago for chest [...] All other systems reviewed and are negative. [facility] 05-08-2024 History of Present illness Narrative Images from the original note were not included. HPI Follow-up Additional comments: [facility] stay 04/11/24-04/13/24 after fall at home with rib fractures discharged to [facility] 04/24/24-04/25/24 dx: CP Discharged home from [facility] 04/30/24 Shortness of Breath Additional comments: Had echo yesterday ordered by cardiology has appt with cardiology next week Using 02 continuously Med Refill Additional comments: Hydrocodone--DM mio Last edited by Bev Mejia LPN on 05/08/2024 11:24 AM. Subjective Patient ID: Jenni Quinones is a 84 y.o. female who presents for Follow-up ([facility] stay 04/11/24-04/13/24 after fall at home with rib fractures discharged to [facility] 04/24/24-04/25/24 dx: CP/Discharged home from [facility] 04/30/24), Shortness of Breath (Had echo yesterday ordered by cardiology has appt with cardiology next week/Using 02 continuously ), and Med Refill (Hydrocodone--DM mio). Flowsheet Row Patient Outreach from 04/30/2024 in [facility] with Monica Ross LPN Hospital Information ED, [...] Management What is the home health agency? [facility] HEALTH NURSE/PT/OT Has home health visited [...] muscle spasms. 30 tablet 3 [DISCONTINUED] HYDROcodone-acetaminophen ([place]) 5-325 MG tablet Take 1 tablet by [...] History: Diagnosis Date Abnormal echocardiogram 09/06/2020 Asthma ([facility]/HCC) Atrial flutter ([facility]/HCC) CHF (congestive heart failure) ([facility]) Diabetes ([facility]) Diverticulosis Enthesopathy of left foot 02/2016 Enthesopathic spurring of calcaneous of left foot per xray Feb 2016 History of being hospitalized 04/25/2024 Chest Pain, ECG Changes HTN (hypertension) ([facility]) Hyperlipidemia ([facility]) Routine general medical examination at [...] 08/07/2023 L3-L5 LUMBAR EPIDURAL INJECTION 05/29/2023 L4-L5 AZ ARTHROSCOPY KNEE DIAGNOSTIC W/WO SYNOVIAL BX SPX Left AZ INTUBATION ENDOTRACHEAL EMERGENCY PROCEDURE 08/18/2018 [place] MEDICATION MANAGEMENT Aortic insufficiency RIGHT HEART CATHETERIZATION [...] Spinal stenosis at L4-L5 level - HYDROcodone-acetaminophen ([place]way) 5-325 MG tablet; Take 1 tablet by mouth every 4 (four) hours if needed for severe pain for up to 10 days Follow up in about 4 weeks (around 06/05/2024) for Routine F/U. documented in this encounter [facility] 04-29-2024 Telephone encounter Note Drug Sharon requesting clarification on dispense amount for insulin. Resent with correct amount to dispense. [facility] 04-29-2024 Miscellaneous Notes Drug Sharon requesting clarification on dispense amount for insulin. Resent with correct amount to dispense. documented in this encounter [facility] 04-25-2024 Consult note Note Date/Time April 25, 2024 12:10pm [facility] [address] [place] [address] Cardiology Consult Note Signed with Addenda Patient: Jenni Quinones MR#: [id number] : 1940 Acct:[id number] Age/Sex: 84 / F Adm Date: 4 Loc: Room: [address] [place] [address] Type: ADM IN Attending Dr: Javan Gruber [...] the hospitalist and ER nurse practitioner at [facility] after discussion last night. Patient was transferred here under my direction for further assessment and management. She was watching the [employer] baseball game, became very excited and experienced retrosternal chest discomfort that abated after arrival to the emergency room after being directed by her family togo to the ER for her discomfort. Initial ECGs revealed atrial fibrillation withnonspecific ST changes, initial troponin was negative. Patient has a history of chronic atrial fibrillation, aortic valve replacement in [place], followed by Dr. Nova. She has previous [...] be discharged to follow-up with her primary master deputy sheriff court security. [facility] Medical History (Updated 04/25/24 @ 04:15 [...] Lymph # (Auto) 0.7 L (1.00-4.8) x10E3/uL Gove # (Auto) 0.8 (0.0-0.8) x10E3/uL Eos # [...] <Electronically signed by Ingrid Haynes DO> 04/25/24 1209 [facility] Work Phone: 1(918) 113-932310-18-2024 History and physical note Author Lalo Carter [facility] April 25, 2024 4:19am Note Date/Time April 25, 2024 4 :10am [facility] [address] [place] [address] Hospitalist H&P Signed Patient: Jenni Quinones MR#: [id number] : 1940 Acct:[id number] Age/Sex: 84 / F Adm Date: 4 Loc: Room: [address] [place] [address] Type: ADM IN Attending Dr: Lalo Carter DO Copies to: MD Lalo Padilla II, ~ HPI DATE OF EXAMINATION: 04/25/24 CHIEF COMPLAINT: Chest pain with radiation to the jaw and shortness of breath and EKG change HISTORY OF PRESENT ILLNESS: This is an 84-year-old woman who presented to the [facility] emergency room. The ER over there had gotten a hold of cardiology on-call with Dr. Haynes regarding EKG changes especially in aVL with inferior depression pattern and so it was recommended that the patient be transferred here to [facility] for cardiology evaluation. The patient is currently in a nursing home facility working with physical therapy and getting [...] of this lasted 20 minutes. At the [facility] emergency room a chest x-ray showed [...] cardiology with Dr. Josefina Nova from the [facility], to [place]. 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 She has been told that there is something just not quite right about that aortic valve, but she cannot explain what the master deputy sheriff court security were looking at. When I asked her if she got cardiac catheterization and planning for the aortic valve replacement the patient does not recall getting this. Review of Systems Review of Systems Review of systems: 10 systems are reviewed and are negative except as mentioned elsewhere in the documentation. [facility] Medical History (Updated 04/25/24 @ 04:15 [...] diabetes mellitus: Plan Assessment: Presentation to the [facility] with chest pain with radiation to [...] a fall on April 11 at a nursing home facility in [place]. Plan: Hospital admission, inpatient status. N.p.o. for [...] signed by Lalo Carter DO> 04/25/24 0419 [facility] Work Phone: 1(548) 283-850409-09-2024 Telephone encounter Note* Telephone Encounter - Jasvir León MD - 03/17/2024 1:33 PM EDT Rx was [facility] in. [id number] Miscellaneous Notes* Telephone Encounter - Jasvir León MD - 03/17/2024 1:33 PM EDT Rx was sent in. * Telephone Encounter - Bev Mejia LPN - 03/17/2024 1:11 PM EDT Pt called tested positive for covid has sorethroat,headache,cough,fatigue she wasn't sure if she needed to get paxlovid or just let it run its course--symptoms started last night documented in [facility] encounter[facility] [id number] Telephone encounter Note* Telephone Encounter - Bev Mejia LPN - 03/17/2024 1:11 PM EDT Pt called tested positive for covid has sorethroat,headache,cough,fatigue she wasn't sure if she needed to get paxlovid or just let it run its course--symptoms started last night [facility] [id number] NoteUT Cardiology - [facility] Subjective Jenni Quinones is a [...] of iron deficiency Heart valve transplanted Hyperthyroidism intermediate card tender current use of anticoagulant therapy Mixed anxiety [...] She has history of prior admissions to [facility] with AF/RVR and diastolic heart failure [...] of Systems Constitutional: P (more content not included)...[facility]05-31-2024 NoteRecently admitted overnight at [facility] for Acute HFrEF and palpitations Coreg [...] Pt is close to euvolemia [facility]23 Noteaortic valve replacement with a 23 mm trifecta tissue valve: 2016 Elevated doppler flows noted and severe AO stenosis- will repeat TTE a 6 months to re-evalaute. RTC with Dr Nova D/W pt about red flag symptoms to call 911 and/or office- increased SOB, Palpitations, syncope, chest pain or any concerns and she voiced understanding Continue all medications as prescribedUnThe [facility] 12-07-2023 NoteRepeat TTE in 6 months Pt denied any worsening symptoms since DC from [facility] and diuresisUnThe [facility]05-31-2024 NoteStable, will monitor with routine echocardiogram in 6 monthsUn[facility]05-31-2024 NoteUTP CARDIOLOGY PROGRESS NOTE HPI: Jenni Quinones is a 83 y.o. female here for routine f/U and review of TTE and ED f/U Patient here for 6 mo follow up aortic and mitral valve stenosis, diastolic heart failure, and permanent afib. She had an echo last month. She presented to [facility] ED a few weeks ago for [...] She has history of prior admissions to [facility] with AF/RVR and diastolic heart failure decompensation. She has normal coronary angiogram in 2016. Patient here for 6 mo follow up aortic and mitral valve stenosis, diastolic heart failure, and permanent afib. She had an echo last month. She presented to [facility] ED a few weeks ago for [...] initiated. Patient agrees this plan. Emergency Department [facility] 5 Patient name: JENNI QUINONES Laboratory [...] has new requirement of 2L O2 by [place]. Case discussed with hospitalist who agreed to [...] She has history of prior admissions to [facility] with AF/RVR and diastolic heart failure [...] flows across the biop (more content not included)...[facility]05-31-2024 NotePatient here for 6 mo follow up aortic and mitral valve stenosis, diastolic heart failure, and permanent afib. She had an echo last month. She presented to [facility] ED a few weeks ago for [...] weakness. All other systems reviewed and are negative.[facility] 12-07-2023 NoteContinue to monitor AO valve with repeat TTE in 6 months [facility]01-30-2024 History of Present illness Narrative* Carole Loyola LPN - 08/07/2023 10:57 AM EST Pt alert and oriented. Denies pain at this time. Dressings at injection site clean and dry. Discharge instructions reviewed, no questions or concerns voiced. [facility] Work Phone: [phone] Hospital Discharge instructions* Discharge Instructions* Carole Loyola [...] vomiting - Difficulty breathing or swallowing CALL [phone] Other Instructions: - You should have a follow-up appointment scheduled already or a follow-up plan in place prior to leaving. - Call the office if you develop any problems or have any questions at: [facility] [phone] or Our 24 hour help line is also available: [phone] ([phone]) If you need refills,or have questions / concerns, outside of our office hours Sunday 8:00 a.m - 4:30 p.m. at [facility], please call [phone] to speak to Constance STEINER or leave a voicemail for her. *Remember to allow at least 48 business hours for medication refill requests. documented in this encounterW[facility] Work Phone: 1(530) 239-786512-01-2022 NoteHISTORY AND PHYSICAL EXAMINATION Date:06/07/2022 HISTORY: The [...] and go forward with her elective procedure.[facility] [id number] NoteOPERATIVE NOTE OPERATION DATE: 06/08/2022 SURGEON: Dawood [...] ensuring mobility, phacoemulsification was performed in a iibifdv-bkq-pafpcm-type fashion. After all nuclear material had been [...] up the following day for postoperative care.[facility] [id number] NoteOPERATIVE NOTE OPERATION DATE: 04/13/2022 SURGEON: Dawood [...] ensuring mobility, phacoemulsification was performed in a xmsibef-ava-fuufim-type fashion. After all nuclear material had been [...] up the following day for postoperative care.[facility] [id number] NoteHISTORY AND PHYSICAL EXAMINATION Date:04/12/2022 HISTORY: The [...] and go forward with her elective procedure.[facility] [id number] Evaluation note* Encounter Date Diagnosis Assessment Notes [...] Patient care instructions given in writting by [facility] document Netviewer Other Evaluation note* Diagnosis Lumbar spondylosis- Primary Lumbosacral spondylosis without myelopathy documented in this encounter [facility] Work Phone: evaluation note* Diagnosis Onset Date Resolution Status Acute electrocardiogram changes acute Chest pain acute Fracture of rib of left side acute GERD (gastroesophageal reflux disease) acute Hypertension acute Type 2 diabetes mellitus acu [facility] Work Phone: Evaluation note* Diagnosis Diabetes mellitus with peripheral vascular disease (CMS/HCC) documented in this encounter [facility]* Diagnosis Closed fracture of multiple ribs of right side with routine healing, subsequent encounter- Primary Nonrheumatic aortic valve stenosis Spinal stenosis at L4-L5 level documented in this encounter [facility] HealthcareEvaluation note* Diagnosis Depression with anxiety Dysthymic disorder Anxiety Anxiety state, unspecified documented in this encounter [facility] HealthcareEvaluation note* Diagnosis COVID- Primary documented in this encounter [facility] HealthcareEvaluation note* Diagnosis Spinal stenosis at [...] see above list Hospitalization History chf x3 Netviewer Other Hospital Discharge instructions Additional Instructions [facility] facility to manage care: DNR [facility] no intubation PT/OT to eval and treat Routine vital signs Maintain high risk falls precautions Monitor cardio assessment -- angina Care to be managed by SNF provider [facility] Work Phone: Summary Purpose Family History [...] section and content) DATE CREATED AUTHOR 08/19/2021 [facility] dical Specialist DATE CREATED AUTHOR AUTHOR'S ORGANIZ ATION 12/26/2021 [facility] DATE CREATED AUTHOR AUTHOR'S ORGANIZ ATION 12/15/2022 [facility] DATE CREATED AUTHOR AUTHOR'S ORGANIZ ATION 05/18/2023 [facility] DATE CREATED AUTHOR AUTHOR'S ORGANIZ ATION 08/08/2023 [facility] DATE CREATED AUTHOR AUTHOR'S ORGANIZ ATION 05/03/2024 [facility] DATE CREATED AUTHOR AUTHOR'S ORGANIZ ATION 05/10/2024 [facility] dical Specialists EPIC DATE CREATED AUTHOR AUTHOR'S ORGANIZ ATION 07/28/2024 [facility] REASON FOR VISIT (unrecogniz ed section and content) Specialty Diagnoses / Procedures Referred By Williams t Referred To Contact Diagnoses Lumbar spondylosis Lumbar spondylosis [M47.816] Procedures AZ NJX DX/THER AGT PVRT FACET JT LMBR/SAC 1 LEVEL [place] NJX DX/THER AGT PVRT FACET JT LMBR/SAC 2ND LEVEL B/L LUMBAR MEDIAL BRANCH BLOCK L3 L4 L5 B/L LUMBAR MEDIAL BRANCH BLOCK L3 L4 L5 Kd Hines MD [address] [place] [address] [facility] Phone: [phone] Referral ID Status Reason Start Date Expiration Date Visits Re quested Visits Authorized [id number] 1 1 Reason Comments Follow-up [facility] stay 04/11/24-04/13/24 after fall at home with rib fractures discharged to [facility] 04/24/24-04/25/24 dx: CPDischarged home from [facility] 04/30/24 Shortness of Breath Had echo yesterday [...] Care Teams (unrecognized sec tion and content) Cloth Bleaching Supervisor Relationship Specialty Start Date End Date Jasvir León MD [address] [facility] [address] [place] [address] PCP - General Internal Medicine 05/07/23 Team [...] April 25, 2024 End: April 25, 2024 Cloth Bleaching Supervisor Relationship Specialty Start Date End Date Jasvir León MD [address] [facility] [address] [place] [address] PCP - General Internal Medicine 11/20/22 Jasvir León MD [address] [facility] [address] [place] [address] PCP - ACO Reach 11/30/22 Cloth Bleaching Supervisor Relationship Specialty Start Date End Date Jasvir León MD [address] [facility] [address] [place] [address] PCP - General Internal Medicine 11/20/22 Jasvir León MD [address] [facility] [address] [place] [address] PCP - ACO Reach 11/30/22 Cloth Bleaching Supervisor Relationship Specialty Start Date End Date Jasvir León MD [address] [facility] [address] [place] [address] PCP - General Internal Medicine 11/20/22 Jasvir León MD [address] [facility] [address] [place] [address] PCP - ACO Reach 11/30/22 Cloth Bleaching Supervisor Relationship Specialty Start Date End Date Jasvir León MD [address] [facility] [address] [place] [address] PCP - General Internal Medicine 11/20/22 Jasvir León MD [address] [facility] [address] [place] [address] PCP - ACO Reach 11/30/22 Cloth Bleaching Supervisor Relationship Specialty Start Date End Date Jasvir León MD [address] [facility] [address] [place] [address] PCP - General Internal Medicine 11/20/22 Jasvir León MD [address] [facility] [address] [place] [address] PCP - ACO Reach 11/30/22 Cloth Bleaching Supervisor Relationship Specialty Start Date End Date Jasvir León MD [address] [facility] [address] [place] [address] PCP - General Internal Medicine 11/20/22 Jasvir León MD [address] [facility] [address] [place] [address] PCP - ACO Reach 11/30/22 Cloth Bleaching Supervisor Relationship Specialty Start Date End Date Jasvir León MD [address] [facility] [address] [place] [address] PCP - General Internal Medicine 11/20/22 Jasvir León MD [address] [facility] [address] [place] [address] PCP - ACO Reach 11/30/22 Cloth Bleaching Supervisor Relationship Specialty Start Date End Date Jasvir León MD [address] [facility] [address] [place] [address] PCP - General Internal Medicine 11/20/22 Jasvir León MD [address] [facility] [address] [place] [address] PCP - ACO Reach 11/30/22 Cloth Bleaching Supervisor Relationship Specialty Start Date End Date Jasvir León MD [address] [facility] [address] [place] [address] PCP - General Internal Medicine 11/20/22 Jasvir León MD [address] [facility] [address] [place] [address] PCP - ACO Reach 11/30/22 Leora Pollard, [...] BE BASED ON THE PRIMARY CLINICAL RECORDS. [facility] [employer] [facility] provides no warranty or guarantee of the accuracy or completeness of information in this document.
[2024-08-15 06:28] LABS: Basophils Percent Auto 0.1 % (0.2-2.0); Eosinophils Percent Auto 0.1 % (0.9-7.0); Hematocrit 28.4 % (36.0-48.0); Hemoglobin 8.4 g/dL (12.0-16.0); Immature Granulocytes Abs Auto 0.04 10^3/uL (0.00-0.03); Immature Granulocytes Pct Auto 0.4 % (0.0-0.5); Lymphocytes Absolute Auto 0.4 10^3/uL (1.2-3.8); Lymphocytes Percent Auto 4.8 % (20.5-60.0); Mean Corpuscular HGB Conc 29.6 g/dL (29.9-35.2); Mean Corpuscular Volume 91.3 fL (81.0-99.0); Mean Platelet Volume 9.7 fL (9.5-13.5); Monocytes Absolute Auto 1.2 10^3/uL (0.3-0.8); Monocytes Percent Auto 13.4 % (1.7-12.0); Neutrophils Absolute Auto 7.3 10^3/uL (1.4-6.5); Neutrophils Percent Auto 81.2 % (43.0-75.0); Platelet Count 254 10^3/uL (150-450); Red Blood Count 3.11 10^6/uL (4.20-5.40); Red Cell Distribution Width 15.8 % (11.0-15.0); White Blood Count 8.9 10^3/uL (4.0-11.0)
[2024-08-15] MEDS: GABAPENTIN 100 MG CAPSULE PO ×2 (06:41→22:22)
[2024-08-15 06:44] LABS: Magnesium 2.2 mg/dL (1.8-2.4)
[2024-08-15 06:58] LABS: Alanine Aminotransferase 13 U/L (14-59); Albumin Globulin Ratio 0.6; Albumin Level 2.6 g/dL (3.4-5.0); Alkaline Phosphatase 71 U/L (46-116); Anion Gap 8.4; Aspartate Amino Transferase 19 U/L (15-37); Bilirubin Total 0.6 mg/dL (0.2-1.0); Calcium 8.5 mg/dL (8.5-10.1); Chloride 101 mmol/L (98-107); Estimated GFR (African America 36 (>=60 mL/min/1.73m^2); Estimated GFR (Non-African Ame 30 (>=60 mL/min/1.73m^2); Globulin 4.5 g/dL; Glucose 121 mg/dL (74-106); Potassium 3.4 mmol/L (3.5-5.1); Sodium 140 mmol/L (136-145); Total Protein 7.1 g/dL (6.4-8.2)
[2024-08-15 07:17] LABS: Troponin I High Sensitivity 55.2 pg/mL (4.0-51.3)
--- NOTE | 2024-08-15 09:17 | PM.HP ---
HPI H&P: HPI History of Present Illness Chief complaint: N/V Narrative: Patient is a 84 y.o white female with past medical history of anxiety, HLD, CHF with preserved EF and severe Aortic stenosis, pulmonary hypertension, Insulin dept type 2 diabetes, RLS, GERD COPD, afib, CKD stage 3 and on chronic oxygen therapy (3L continuous) who presented to the last night with extreme fatigue, weakness, 3 days of diarrhea nausea and vomiting. She denies fevers. She reports 8-10 loose green bowel movements daily. She denies recent antibiotic use, travel or sick contacts. She also notes cough. Her nausea has improved this morning but diarrhea still present. I have discussed CT findings with patient includinge the left left basilar Pleural mass. She has appointment with Dr. Tan, Pulmonary to discuss further in the next few weeks. patient denies chest pain, shortness of breath, just weakness. ER findings: GFR 30, WBC's 16, HB 8.4, K 3.4, Cr 1.75, Trop 55.2 then 55.7: CT scan: 1. Included lung bases demonstrate stable chronic right lower lobe rounded atelectasis with some areas of chronic scarring.2. Partial imaging of an enlarging left basilar pleural mass compared with 03/02/2023 now measuring up to 5 cm x 3.4 cm (previously measured at 2.4 x 1.4 cm. There are some changes suggesting this could reflect some rounded atelectasis but given growth, correlate with PET/CT and/or biopsy depending on results. Not mentioned above there is an adjacent chronic ununited posterior lateral lower left ninth rib fracture. This may contribute to rounded atelectasis.3. There is some patchy interstitial changes at base of lingula and right middle lobe. Correlate for fluid overload. There remains moderate enlargement of cardiac silhouette.4. No acute intra-abdominal or pelvic pathology.5. Cholecystectomy.6. Colonic diverticulosis without colitis or other acute bowel pathology.7. Other chronic and incidental findings as discussed. Opioid HPI Opioid Management Most Recent Pain and Opioid Data: Last Pain Scale 7 04/25/24 00:34 04/25/24 Last Pain Assessment 08/15/24 11:53 Last ORT Total Score 0 08/15/24 01:08 08/15/24 Last ORT Risk Category Low Risk 08/15/24 01:08/15/24 Review of Systems ROS Narrative ROS: a complete review of systems were reviewed with patient and are positive as below or listed in History of Chief Complaint. General: no fever, chills, night sweats Head: no headache, trauma, visual changes, nausea or vomiting Skin: no reported rashes, itching or sores Eyes: no blurriness of vision Ears: no reported hearing loss, vertigo, earache, or tinnitus Throat: no sore throat, hoarseness, swelling of neck, or tongue pain Heart: no chest pain Lungs: shortness of breath and cough GI:diarrhea and vomiting/nausea Urinary: no urinary urgency, frequency or pain Neuro: no numbness or tingling HEM: no bleeding issues or bruising ENDO: no thyroid problems Psych: no anxiety or depression PFSH [facility] Medical History (Updated 08/15/24 @ 13:17 by Milvia Arreola DO) GERD without esophagitis ?K21.9 - Gastro-esophageal reflux disease without esophagitis (ICD-10) Depression ?F32.A - Depression, unspecified (ICD-10) Chronic hypoxic respiratory failure ?J96.11 - Chronic respiratory failure with hypoxia (ICD-10) Multiple rib fractures ?S22.49XA - Multiple fractures of ribs, unspecified side, initial encounter for closed fracture (ICD-10) Type 2 diabetes mellitus with hyperglycemia ?E11.65 - Type 2 diabetes mellitus with hyperglycemia (ICD-10) Aortic stenosis, moderate ?I35.0 - Nonrheumatic aortic (valve) stenosis (ICD-10) Persistent atrial fibrillation ?I48.19 - Other persistent atrial fibrillation (ICD-10) Chronic heart failure with preserved ejection fraction (HFpEF) ?I50.32 - Chronic diastolic (congestive) heart failure (ICD-10) Hypertension ?I10 - Essential (primary) hypertension (ICD-10) HLD (hyperlipidemia) ?E78.5 - Hyperlipidemia, unspecified (ICD-10) CKD (chronic kidney disease) stage 3, GFR 30-59 ml/min ?N18.30 - Chronic kidney disease, stage 3 unspecified (ICD-10) Hypothyroid ?E03.9 - Hypothyroidism, unspecified (ICD-10) Acute thoracic back pain ?M54.6 - Pain in thoracic spine (ICD-10) Closed compression fracture of L1 vertebra ?S32.010A - Wedge compression fracture of first lumbar vertebra, initial encounter for closed fracture (ICD-10) Lung mass ?R91.8 - Other nonspecific abnormal finding of lung field (ICD-10) Compression fracture of L1 lumbar vertebra ?S32.010A - Wedge compression fracture of first lumbar vertebra, initial encounter for closed fracture (ICD-10) Acute pain of left foot ?M79.672 - Pain in left foot (ICD-10) 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 ?F32.89 - Other specified depressive episodes (ICD-10) Anxiety ?F41.9 - Anxiety disorder, unspecified (ICD-10) Diabetes ?E11.9 - Type 2 diabetes mellitus without complications (ICD-10) Atrial fibrillation ?I48.91 - Unspecified atrial fibrillation (ICD-10) Surgical History Status post aortic valve repair ?Z98.890 - Other specified postprocedural states (ICD-10) S/P ablation of atrial fibrillation ?Z98.890 - Other specified postprocedural states (ICD-10) ?Z86.79 - Personal history of other diseases of the circulatory system (ICD-10) History of carpal tunnel surgery of right wrist ?Z98.890 - Other specified postprocedural states (ICD-10) H/O: hysterectomy ?Z90.710 - Acquired absence of both cervix and uterus (ICD-10) Aortic valve replaced ?Z95.2 - Presence of prosthetic heart valve (ICD-10) History of cholecystectomy ?Z90.49 - Acquired absence of other specified parts of digestive tract (ICD-10) Family History Mother Family history of CHF (congestive heart failure) Father Family history of diabetes mellitus Sister Family history of diabetes mellitus Son Family history of myocardial infarction Social History Within the past year, how often did you have a drink containing alcohol: monthly or less Within the past year, how many standard drinks containing alcohol did you have on a typical day: 1 or 2 Within the past year, how often did you have six or more drinks on one occasion: never Total score: 0 Score interpretation: A score less than 3 is consistent with normal alcohol consumption. Smoking status: Former smoker Non-prescribed substance use: denies use Previous occupational history: retired Highest level of school completed/degree received: high school graduate Are you now , , , , never or living with a partner: In a typical week, how many times do you talk on the telephone with family, friends, or neighbors: 3 or more times per week How often do you get together with friends or relatives: 3 or more times per week How often do you attend cheondoism or spiritism services: 4 or more times per year Do you belong to any clubs or organizations such as cheondoism groups unions, [employer] or [employer] groups, or school groups: no Total score: 2 Score interpretation: A score of greater than or equal to 2 indicates the lowest level of social isolation. Little interest or pleasure in doing things: not at all Feeling down, depressed, or hopeless: not at all Feel stressed/tense/nervous/anxious/difficulty sleeping: not at all Gender Identity: female Meds Home Medications and Allergies Home Medications ?Medication ?Instructions ?Recorded ?Confirmed ?Type alprazolam 0.25 mg tablet 0.25 mg PO Q6H PRN anxiety 11/17/23 08/15/24 History atorvastatin 20 mg tablet 20 mg PO QPM 11/17/23 08/15/24 History bupropion HCl 150 mg tablet,12 hr 150 mg PO BID 11/17/23 08/15/24 History sustained-release digoxin 125 mcg (0.125 mg) tablet 0.125 mg PO .QD 11/17/23 08/15/24 History escitalopram oxalate 10 mg tablet 10 mg PO DAILY 11/17/23 08/15/24 History gabapentin 100 mg capsule 100 mg PO TID 11/17/23 08/15/24 History insulin lispro protamine-lispro 8 unit subcut BID 11/17/23 08/15/24 History 100 unit/mL (75-25) subcutaneous pen omeprazole 40 mg capsule,delayed 40 mg PO DAILY 11/17/23 08/15/24 History release ropinirole 0.25 mg tablet 0.25 mg PO QPM 11/17/23 08/15/24 History torsemide 20 mg tablet 50 mg PO DAILY 11/17/23 08/15/24 History spironolactone 25 mg tablet 25 mg PO DAILY #30 tabs 11/18/23 08/15/24 Rx (Aldactone) carvedilol 12.5 mg tablet (Coreg) 12.5 mg PO BID 08/15/24 08/15/24 History empagliflozin 10 mg tablet 10 mg PO DAILY 08/15/24 08/15/24 History (Jardiance) Allergies Allergy/AdvReac Type Severity Reaction Status Date / Time codeine Allergy Intermediate Unknown Verified 08/14/24 21:41 Penicillins Allergy Intermediate Unknown Verified 08/14/24 21:41 Exam Narrative Exam Narrative: General: Patient is alert, and oriented to person, place and time with normal affect, proper hygiene, just appears very weak and has to stop for breaks on her way back from restroom Skin: no visible rashes, or ulcers Head: atraumatic, acephalic Eyes: PERRLA, no nystagmus present, conjunctiva clear, no scleral icterus Ears: normal gross auditory acuity Neck: no masses palpated, normal thyroid Heart: Normal rate and rhythm, no murmurs/rubs/gallops Lungs: no audible wheezes, crackles and normal breath sounds all lung sher Abdomen: hyperactive bowel sounds, no distension Musculoskeletal: no swelling bilateral lower extremities Neuro: CN II-X grossly intact Constitutional Vital Signs, click to edit/add: Last Vital Signs Temp 97.5 F L 08/15/24 07:48 Pulse 109 H 08/15/24 07:48 Resp 18 08/15/24 07:48 BP 126/75 08/15/24 07:48 Pulse Ox 93 L 08/15/24 07:48 O2 Del Method Nasal Cannula 08/15/24 07:48 O2 Flow Rate 3 08/15/24 07:48 Results Labs Labs: Short CBC 08/14/24 08/15/24 Range/Units 21:45 06:02 WBC 16.8 H 8.9 (4.0-11.0) 10^3/uL Hgb 9.6 L 8.4 L (12.0-16.0) g/dL Hct 31.6 L 28.4 L (36.0-48.0) % Plt Count 252 254 (150-450) 10^3/uL BMP 08/14/24 08/15/24 21:45 06:02 Sodium 135 L 140 Potassium 4.9 3.4 L Chloride 95 L 101 Carbon Dioxide 29.6 34.0 H BUN 39.0 H 38.0 H Creatinine 1.75 H 1.65 H Glucose 168 H 121 H Calcium 8.8 8.5 Liver Function 08/15/24 Range/Units 06:02 Total Bilirubin 0.6 (0.2-1.0) mg/dL AST 19 (15-37) U/L ALT 13 L (14-59) U/L Alkaline Phosphatase 71 (46-116) U/L Albumin 2.6 L (3.4-5.0) g/dL Assessment and Plan Assessment and Plan (1) Gastroenteritis: Assessment and Plan: continue with slow IVF given history of hear failure, stool cultures, C diff and norovirus pending. Influenza and Covid testing negative. Antiemetics as needed. monitor electrolytes, start Bentyl (2) Acute on chronic renal failure: Assessment and Plan: most likely from dehydration. Continue IVF. Cr improved from 1.75 to 1.65 Qualifiers: Acute renal failure type: unspecified Chronic kidney disease stage: stage 3 (moderate) Chronic kidney disease stage 3 subtype: stage 3b (GFR 30-44) Qualified Code(s): N17.9 - Acute kidney failure, unspecified; N18.32 - Chronic kidney disease, stage 3b (3) NSTEMI (non-ST elevated myocardial infarction): Assessment and Plan: Elevated trop 55, continue to trend. Most likely Type 2 with CATHY, vomiting. Patient with no acute chest pain. (4) Chronic hypoxic respiratory failure: Assessment and Plan: requiring the 3L continuous she is on at home (5) Chronic heart failure with preserved ejection fraction (HFpEF): Assessment and Plan: She appears in no volume overload despite elevated proBNP which I think is her normal. continue torsemide, spironolactone, Coreg (6) Hypertension: Assessment and Plan: resume home meds. Qualifiers: Hypertension type: primary hypertension Qualified Code(s): I10 - Essential (primary) hypertension (7) HLD (hyperlipidemia): Assessment and Plan: continue atorvastatin Qualifiers: Hyperlipidemia type: unspecified Qualified Code(s): E78.5 - Hyperlipidemia, unspecified (8) CKD (chronic kidney disease) stage 3, GFR 30-59 ml/min: Qualifiers: Chronic kidney disease stage 3 subtype: stage 3a (GFR 45-59) Qualified Code(s): N18.31 - Chronic kidney disease, stage 3a (9) Hypothyroid: Assessment and Plan: continue levothyroxine Qualifiers: Hypothyroidism type: unspecified Qualified Code(s): E03.9 - Hypothyroidism, unspecified (10) Lung mass: Assessment and Plan: Patient aware, scheduled for outpatient follow up (11) Persistent atrial fibrillation: Assessment and Plan: continue coreg, digoxin (12) Diabetes: Assessment and Plan: SSI with accuchecks Qualifiers: Diabetes mellitus type: type 2 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 Diabetes mellitus complication status: with kidney complications Diabetes mellitus complication detail: with chronic kidney disease Chronic kidney disease stage: stage 3 (moderate) Chronic kidney disease stage 3 subtype: stage 3b (GFR 30-44) Qualified Code(s): E11.22 - Type 2 diabetes mellitus with diabetic chronic kidney disease; N18.32 - Chronic kidney disease, stage 3b; Z79.4 - custodial (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 of insulin (13) Depression: Assessment and Plan: continue xanax, wellbutrin, lexapro Qualifiers: Depression Type: unspecified Qualified Code(s): F32.A - Depression, unspecified (14) GERD without esophagitis: Assessment and Plan: continue omeprazole Plan Patient is a DNRCCA Heparin for DVT prophylaxis Patient is inpatient status and is expected to cross 2 midnights.
[2024-08-15] MEDS: SPIRONOLACTONE 25 MG TABLET PO (10:00)
[2024-08-15] MEDS: HEPARIN SODIUM (PORCINE) 5,000 UNIT/ML VIAL 5000 UNIT SUBQ ×2 (10:00→22:22)
[2024-08-15] MEDS: BUPROPION HCL 150 MG SR TABLET 12H PO ×2 (10:00→22:22)
[2024-08-15] MEDS: OMEPRAZOLE 40 MG CAPSULE.DR PO (10:00)
[2024-08-15] MEDS: CARVEDILOL 12.5 MG TABLET PO ×2 (10:00→22:23)
[2024-08-15] MEDS: ESCITALOPRAM 10 MG TABLET PO (10:00)
[2024-08-15] MEDS: TORSEMIDE 20 MG TABLET 50 MG PO (10:00)
[2024-08-15] MEDS: ONDANSETRON PF 4 MG/2 ML VIAL IV ×2 (10:05→23:17)
--- NOTE | 2024-08-15 11:40 | CM.NOTE ---
Rounds made with Dr. Arreola, discussed plan of care with pt. No discharge today. Dr. Arreola will check C-diff and stool culture and continue to monitor labs. Continues IV fluids.
--- NOTE | 2024-08-15 11:43 | CM.NOTE ---
Lorena Leyva will call Dr. Tan office to confirm outpatient appt for pt. Pt has pleural mass being evaluated and unsure of date and time of appt.
--- NOTE | 2024-08-15 11:48 | CM.NOTE ---
Important Message From Medicare discussed with pt, pt verbalizes understanding and signs paper. Original given to pt and copy placed on pt's chart.
[2024-08-15 11:54] LABS: Magnesium 2.1 mg/dL (1.8-2.4)
[2024-08-15 12:03] LABS: Troponin I High Sensitivity 55.7 pg/mL (4.0-51.3)
[2024-08-15 12:05] LABS: C. Difficile PCR NEGATIVE
--- NOTE | 2024-08-15 13:31 | SWNOTE1 ---
SW met with pt and daughter in room. Pt does live at home by herself, but family is close by and checks on her daily. Pt does use a walker at home. Pt voiced she just has not been feeling well. Pt does have HH services coming in and they think it is [facility], SW to check. Pt voiced her goal is to return home. SW asked if she is open to SNF if it is recommended. Pt and daughter stated only if it is covered by insurance. SW explained that as of now she is an inpatient and Medicare requires a 3 day inpt stay to pay for rehab. SW explained that if she medically needs to be here over the weekend, SW can re-evaluate Sunday morning if pt is recommended to go to rehab. They voiced understanding.
--- NOTE | 2024-08-15 13:53 | SWNOTE1 ---
Pt is current with [facility] .
--- NOTE | 2024-08-15 13:54 | SWNOTE1 ---
Pt also wears home oxygen at 3 liters from [facility].
[2024-08-15 14:00] LABS: Influenza Virus A Antigen Negative; Influenza Virus B Antigen Negative; Internal Control Within Normal Limits
[2024-08-15 16:17] LABS: Glucometer 119 mg/dL (74-106)
[2024-08-15 20:14] LABS: Glucometer 126 mg/dL (74-106)
[2024-08-15] MEDS: DICYCLOMINE HCL 10 MG CAPSULE PO (22:22)
[2024-08-15] MEDS: ROPINIROLE HCL 0.25 MG TABLET PO (22:22)
[2024-08-15] MEDS: ATORVASTATIN CALCIUM 20 MG TABLET PO (22:23)
[2024-08-15] MEDS: ALPRAZOLAM 0.25 MG TABLET PO (23:17)
[2024-08-16] MEDS: 0.9 % SODIUM CHLORIDE 1,000 ML 100 ML IV (05:49)
[2024-08-16] MEDS: GABAPENTIN 100 MG CAPSULE PO ×2 (05:52→21:23)
[2024-08-16 06:05] LABS: Basophils Percent Auto 0.3 % (0.2-2.0); Eosinophils Percent Auto 0.5 % (0.9-7.0); Hematocrit 26.4 % (36.0-48.0); Hemoglobin 7.8 g/dL (12.0-16.0); Immature Granulocytes Abs Auto 0.03 10^3/uL (0.00-0.03); Immature Granulocytes Pct Auto 0.5 % (0.0-0.5); Lymphocytes Absolute Auto 0.6 10^3/uL (1.2-3.8); Mean Corpuscular HGB Conc 29.5 g/dL (29.9-35.2); Mean Corpuscular Hemoglobin 27.1 pg (26.7-34.0); Mean Corpuscular Volume 91.7 fL (81.0-99.0); Mean Platelet Volume 9.7 fL (9.5-13.5); Monocytes Percent Auto 14.5 % (1.7-12.0); Neutrophils Percent Auto 75.2 % (43.0-75.0); Platelet Count 209 10^3/uL (150-450); Red Blood Count 2.88 10^6/uL (4.20-5.40); Red Cell Distribution Width 15.7 % (11.0-15.0); White Blood Count 6.6 10^3/uL (4.0-11.0)
[2024-08-16 06:27] LABS: Alanine Aminotransferase 10 U/L (14-59); Albumin Globulin Ratio 0.6; Albumin Level 2.4 g/dL (3.4-5.0); Alkaline Phosphatase 66 U/L (46-116); Anion Gap 9.6; Aspartate Amino Transferase 19 U/L (15-37); BUN Creatinine Ratio 21.5; Bilirubin Total 0.5 mg/dL (0.2-1.0); Calcium 8.6 mg/dL (8.5-10.1); Carbon Dioxide 30.7 mmol/L (21.0-32.0); Chloride 103 mmol/L (98-107); Estimated GFR (African America 34 (>=60 mL/min/1.73m^2); Estimated GFR (Non-African Ame 28 (>=60 mL/min/1.73m^2); Globulin 4.2 g/dL; Glucose 103 mg/dL (74-106); Potassium 3.3 mmol/L (3.5-5.1); Sodium 140 mmol/L (136-145); Total Protein 6.6 g/dL (6.4-8.2)
[2024-08-16 06:39] VITALS: BP 110/69; PULSE 83; TEMP 36.5; O2SAT 95
[2024-08-16 08:38] VITALS: BMI 25.1
[2024-08-16 09:00] VITALS: BP 101/59; PULSE 93; TEMP 36.7; O2SAT 92
[2024-08-16] MEDS: POTASSIUM CHLORIDE 10 MEQ ER TABLET 20 MEQ PO ×2 (09:09→21:22)
[2024-08-16] MEDS: DIGOXIN 125 MCG TABLET PO (09:09)
[2024-08-16] MEDS: OMEPRAZOLE 40 MG CAPSULE.DR PO (09:09)
[2024-08-16] MEDS: SPIRONOLACTONE 25 MG TABLET PO (09:09)
[2024-08-16] MEDS: DICYCLOMINE HCL 10 MG CAPSULE PO (09:09)
[2024-08-16] MEDS: HEPARIN SODIUM (PORCINE) 5,000 UNIT/ML VIAL 5000 UNIT SUBQ ×2 (09:09→21:22)
[2024-08-16] MEDS: BUPROPION HCL 150 MG SR TABLET 12H PO ×2 (09:10→21:22)
[2024-08-16] MEDS: TORSEMIDE 20 MG TABLET 50 MG PO (09:10)
[2024-08-16] MEDS: ESCITALOPRAM 10 MG TABLET PO (09:10)
--- NOTE | 2024-08-16 09:47 | P.DS_ITS ---
DS: Providers Provider Date of admission: 08/15/24 00:25 Primary care physician: JHONATAN LUCIA Consults: 08/15/24 Occupational Therapy Eval and Treat Routine Reason for consultation: weakness Physical Therapy Eval and Treat Routine Reason for consultation: weakness DS: Diagnosis Discharge Diagnosis (1) Gastroenteritis: (2) Acute on chronic renal failure: Qualifiers: Acute renal failure type: unspecified Chronic kidney disease stage: stage 3 (moderate) Chronic kidney disease stage 3 subtype: stage 3b (GFR 30-44) Qualified Code(s): N17.9 - Acute kidney failure, unspecified; N18.32 - Chronic kidney disease, stage 3b (3) NSTEMI (non-ST elevated myocardial infarction): (4) Chronic hypoxic respiratory failure: (5) Chronic heart failure with preserved ejection fraction (HFpEF): (6) Hypertension: Qualifiers: Hypertension type: primary hypertension Qualified Code(s): I10 - Essential (primary) hypertension (7) HLD (hyperlipidemia): Qualifiers: Hyperlipidemia type: unspecified Qualified Code(s): E78.5 - Hyperlipidemia, unspecified (8) CKD (chronic kidney disease) stage 3, GFR 30-59 ml/min: Qualifiers: Chronic kidney disease stage 3 subtype: stage 3a (GFR 45-59) Qualified Code(s): N18.31 - Chronic kidney disease, stage 3a (9) Hypothyroid: Qualifiers: Hypothyroidism type: unspecified Qualified Code(s): E03.9 - Hypothyroidism, unspecified (10) Lung mass: (11) Persistent atrial fibrillation: (12) Diabetes: Qualifiers: Chronic kidney disease stage: stage 3 (moderate) Chronic kidney disease stage 3 subtype: stage 3b (GFR 30-44) Diabetes mellitus complication detail: with chronic kidney disease Diabetes mellitus complication status: with kidney complications 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 Influenza and Covid testing negative. Antiemetics as needed. monitor electrolytes, start Bentyl (2) Acute on chronic renal failure: Assessment and Plan: most likely from dehydration. Continue IVF. Cr improved from 1.75 to 1.65 Qualifiers: Acute renal failure type: unspecified Chronic kidney disease stage: stage 3 (moderate) Chronic kidney disease stage 3 subtype: stage 3b (GFR 30-44) Qualified Code(s): N17.9 - Acute kidney failure, unspecified; N18.32 - Chronic kidney disease, stage 3b (3) NSTEMI (non-ST elevated myocardial infarction): Assessment and Plan: Elevated trop 55, continue to trend. Most likely Type 2 with CATHY, vomiting. Patient with no acute chest pain. (4) Chronic hypoxic respiratory failure: Assessment and Plan: requiring the 3L continuous she is on at home (5) Chronic heart failure with preserved ejection fraction (HFpEF): Assessment and Plan: She appears in no volume overload despite elevated proBNP which I think is her normal. continue torsemide, spironolactone, Coreg (6) Hypertension: Assessment and Plan: resume home meds. Qualifiers: Hypertension type: primary hypertension Qualified Code(s): I10 - Essential (primary) hypertension (7) HLD (hyperlipidemia): Assessment and Plan: continue atorvastatin Qualifiers: Hyperlipidemia type: unspecified Qualified Code(s): E78.5 - Hyperlipidemia, unspecified (8) CKD (chronic kidney disease) stage 3, GFR 30-59 ml/min: Qualifiers: Chronic kidney disease stage 3 subtype: stage 3a (GFR 45-59) Qualified Code(s): N18.31 - Chronic kidney disease, stage 3a (9) Hypothyroid: Assessment and Plan: continue levothyroxine Qualifiers: Hypothyroidism type: unspecified Qualified Code(s): E03.9 - Hypothyroidism, unspecified (10) Lung mass: Assessment and Plan: Patient aware, scheduled for outpatient follow up (11) Persistent atrial fibrillation: Assessment and Plan: continue coreg, digoxin (12) Diabetes: Assessment and Plan: SSI with accuchecks Qualifiers: Diabetes mellitus type: type 2 Diabetes mellitus senior 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 Diabetes mellitus complication status: with kidney complications Diabetes mellitus complication detail: with chronic kidney disease Chronic kidney disease stage: stage 3 (moderate) Chronic kidney disease stage 3 subtype: stage 3b (GFR 30-44) Qualified Code(s): E11.22 - Type 2 diabetes mellitus with diabetic chronic kidney disease; N18.32 - Chronic kidney disease, stage 3b; Z79.4 - jail (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 of insulin (13) Depression: Assessment and Plan: continue xanax, wellbutrin, lexapro Qualifiers: Depression Type: unspecified Qualified Code(s): F32.A - Depression, unspecified (14) GERD without esophagitis: Assessment and Plan: continue omeprazole DS: Summary Status at Discharge Overall status at discharge: patient is not back to baseline Time Spent with Patient Time attestation: Total time spent providing and/or coordinating discharge services: Time spent: greater than 30 minutes Exam Constitutional Vital Signs, click to edit/add: Last Vital Signs Temp 98.1 F 08/16/24 09:00 Pulse 93 H 08/16/24 09:00 Resp 20 08/16/24 09:00 BP 101/59 08/16/24 09:00 Pulse Ox 92 L 08/16/24 09:00 O2 Del Method Nasal Cannula 08/16/24 09:00 O2 Flow Rate 3 08/16/24 09:00 DS: Data Data Completed and Pending Labs on day of discharge: Labs from last 24 hours 08/16/24 08/15/24 08/15/24 05:42 20:12 16:15 WBC 6.6 RBC 2.88 L Hgb 7.8 L Hct 26.4 L MCV 91.7 MCH 27.1 MCHC 29.5 L RDW 15.7 H Plt Count 209 MPV 9.7 Neut % (Auto) 75.2 H Lymph % (Auto) 9.0 L [place] % (Auto) 14.5 H Eos % (Auto) 0.5 L Baso % (Auto) 0.3 Neut # (Auto) 5.0 Lymph # (Auto) 0.6 L [place] # (Auto) 1.0 H Eos # (Auto) 0.0 Baso # (Auto) 0.0 Abs Immat Gran (auto) 0.03 Imm/Tot Granulo (auto) 0.5 Sodium 140 Potassium 3.3 L Chloride 103 Carbon Dioxide 30.7 Anion Gap 9.6 BUN 37.0 H Creatinine 1.72 H Est GFR ( Amer) 34 L Est GFR (Non-Af Amer) 28 L BUN/Creatinine Ratio 21.5 Glucose 103 Calcium 8.6 Magnesium Total Bilirubin 0.5 AST 19 ALT 10 L Alkaline Phosphatase 66 Troponin I High Sens 37.0 NT-Pro-B Natriuret Pep Total Protein 6.6 Albumin 2.4 L Globulin 4.2 Albumin/Globulin Ratio 0.6 Influenza Type A Ag Influenza Type B Ag C. difficile Toxin PCR POC Glucose 126 H 119 H 08/15/24 08/15/24 08/15/24 13:44 11:25 11:00 WBC RBC Hgb Hct MCV MCH MCHC RDW Plt Count MPV Neut % (Auto) Lymph % (Auto) [place] % (Auto) Eos % (Auto) Baso % (Auto) Neut # (Auto) Lymph # (Auto) [place] # (Auto) Eos # (Auto) Baso # (Auto) Abs Immat Gran (auto) Imm/Tot Granulo (auto) Sodium Potassium Chloride Carbon Dioxide Anion Gap BUN Creatinine Est GFR ( Amer) Est GFR (Non-Af Amer) BUN/Creatinine Ratio Glucose Calcium Magnesium 2.1 Total Bilirubin AST ALT Alkaline Phosphatase Troponin I High Sens 55.7 H* NT-Pro-B Natriuret Pep 94367.0 H* Total Protein Albumin Globulin Albumin/Globulin Ratio Influenza Type A Ag Negative Influenza Type B Ag Negative C. difficile Toxin PCR Negative POC Glucose Discharge Plan Discharge Disposition: Home, Self-Care Condition: Fair Discharge Medications: New hyoscyamine sulfate 0.125 mg tablet,disintegrating 0.25 mg PO Q6H MDD 8 PRN (Reason: abd painb, diarrhea) Qty: 30 0RF ondansetron 4 mg tablet,disintegrating 4 mg PO Q6H PRN (Reason: nausea and vomiting) Qty: 20 0RF Continued Jardiance 10 mg tablet 10 mg PO DAILY carvedilol [Coreg] 12.5 mg tablet 12.5 mg PO BID Rx Instructions: must administer with a meal/food alprazolam 0.25 mg tablet 0.25 mg PO Q6H PRN (Reason: anxiety) atorvastatin 20 mg tablet 20 mg PO QPM bupropion HCl 150 mg tablet sustained-release 12 hr 150 mg PO BID digoxin 125 mcg (0.125 mg) tablet 0.125 mg PO .QD insulin lispro protamin-lispro 100 unit/mL (75-25) insulin pen 8 unit SUBCUT BID omeprazole 40 mg capsule,delayed release(DR/EC) 40 mg PO DAILY ropinirole 0.25 mg tablet 0.25 mg PO QPM torsemide 20 mg tablet 50 mg PO DAILY escitalopram oxalate 10 mg tablet 10 mg PO DAILY gabapentin 100 mg capsule 100 mg PO TID spironolactone [Aldactone] 25 mg tablet 25 mg PO DAILY Qty: 30 0RF Print Language: Afghan Forms: Portal Instructions
[2024-08-16] MEDS: HYOSCYAMINE SULFATE 0.125 MG TAB.SUBL 0.25 MG SL ×3 (12:45→21:22)
--- NOTE | 2024-08-16 14:58 | XR_ITS ---
The [address] [address] Patient Name: KATHY VILLEGAS MRN: [id number] date: 1940 Sex: F Assigned Patient Location: Current Patient Location: Accession/Order Number: [id number] Exam Date: 08/16/2024 15:20 Report Date: 08/16/2024 17:22 At the request of: ROBERTO ZIMMERMAN Procedure: XR acute abdomen series EXAM: ACUTE ABDOMINAL SERIES HISTORY: Emesis in a 84-year-old female TECHNIQUE: A single view of the chest and 3 views of the abdomen and pelvis are submitted for review. COMPARISON: None. FINDINGS: CHEST X-RAY: Cardiac monitoring device overlies the upper left abdomen. The lungs are hyperexpanded with airspace opacities demonstrated in bilateral lower lobes. There is no acute infiltrate. There is no evidence for effusion. The heart measures enlarged.. Pulmonary vascularity is prominent. Osseous structures demonstrate stable mediastinal wires which are aligned and intact. ABDOMEN: Non obstructive bowel gas pattern. Clips are seen in the right upper quadrant. Evaluation for free air limited due to supine imaging. There are no abnormal calcifications. However, evaluation of the renal shadows is limited due to overlying bowel gas. No portal venous air. Osseous structures demonstrate postoperative changes of the lumbar spine with vertebroplasty material. There are some well-corticated rib fractures demonstrated on the left which do not appear to be acute. XR/XR acute abdomen series IMPRESSION: CHEST X-RAY: Airspace opacities demonstrated bilaterally. Please correlate for pneumonia. However, other etiologies within the lungs not entirely excluded. CT scan of the chest would help better delineate. ABDOMEN: 1. Nonobstructive bowel gas pattern. 2. Mild retention of stool. Electronically authenticated by: JOCY LLOYD Date: 08/16/2024 17:22
--- NOTE | 2024-08-16 15:00 | P.PN_ITS ---
Progress Note: Subjective Subjective Interval history: Patient feels somewhat better today, but had not eaten yet this morning. Exam Constitutional Vital Signs, click to edit/add: Last Vital Signs Temp 98.1 F 08/16/24 09:00 Pulse 93 H 08/16/24 09:00 Resp 20 08/16/24 09:00 BP 101/59 08/16/24 09:00 Pulse Ox 92 L 08/16/24 09:00 O2 Del Method Nasal Cannula 08/16/24 09:00 O2 Flow Rate 3 08/16/24 09:00 Documenting provider has reviewed patient's vital signs: yes Common normals: no apparent distress Respiratory Common normals: normal respiratory effort; not clear to ascultation bilaterally Auscultation: rhonchi (Diffuse rhonchi but that is probably her normal); no wheezes Cardio Common normals: regular rate and regular rhythm GI Common normals: Normal to inspection, nondistended, normoactive bowel sounds present Progress Note: Objective Labs Labs: Short CBC 08/16/24 Range/Units 05:42 WBC 6.6 (4.0-11.0) 10^3/uL Hgb 7.8 L (12.0-16.0) g/dL Hct 26.4 L (36.0-48.0) % Plt Count 209 (150-450) 10^3/uL BMP 08/16/24 05:42 Sodium 140 Potassium 3.3 L Chloride 103 Carbon Dioxide 30.7 BUN 37.0 H Creatinine 1.72 H Glucose 103 Calcium 8.6 Liver Function 08/16/24 Range/Units 05:42 Total Bilirubin 0.5 (0.2-1.0) mg/dL AST 19 (15-37) U/L ALT 10 L (14-59) U/L Alkaline Phosphatase 66 (46-116) U/L Albumin 2.4 L (3.4-5.0) g/dL Progress Note: A&P Assessment and Plan (1) Gastroenteritis: (2) Acute on chronic renal failure: Qualifiers: Acute renal failure type: unspecified Chronic kidney disease stage: sta ge 3 (moderate) Chronic kidney disease stage 3 subtype: stage 3b (GFR 30-44) Qualified Code(s): N17.9 - Acute kidney failure, unspecified; N18.32 - Chronic kidney disease, stage 3b (3) NSTEMI (non-ST elevated myocardial infarction): (4) Chronic hypoxic respiratory failure: (5) Chronic heart failure with preserved ejection fraction (HFpEF): (6) Hypertension: Qualifiers: Hypertension type: primary hypertension Qualified Code(s): I10 - Essential (primary) hypertension (7) HLD (hyperlipidemia): Qualifiers: Hyperlipidemia type: unspecified Qualified Code(s): E78.5 - Hyperlipidemia, unspecified (8) CKD (chronic kidney disease) stage 3, GFR 30-59 ml/min: Qualifiers: Chronic kidney disease stage 3 subtype: stage 3a (GFR 45-59) Qualified Code(s): N18.31 - Chronic kidney disease, stage 3a (9) Hypothyroid: Qualifiers: Hypothyroidism type: unspecified Qualified Code(s): E03.9 - Hypothyroi dism, unspecified (10) Lung mass: (11) Persistent atrial fibrillation: (12) Diabetes: Qualifiers: Diabetes mellitus type: type 2 Diabetes mellitus longterm insulin use: with longterm use Diabetes mellitus complication status: with kidney complications Diabetes mellitus complication detail: with chronic kidney disease Chronic kidney disease stage: stage 3 (moderate) Chronic kidney disease stage 3 subtype: stage 3b (GFR 30-44) Qualified Code(s): E11.22 - Type 2 diabetes mellitus with diabetic chronic kidney disease; N18.32 - Chronic kidney disease, stage 3b; Z79.4 - 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 (13) Depression: Qualifiers: Depression Type: unspecified Qualified Code(s): F32.A - Depression, unspecified (14) GERD without esophagitis: Plan Gastroenteritis: Try to eat breakfast and lunch and still had emesis, increased frequency of the Zofran which patient was reluctant to use, hold off on further diuretics and give small fluid bolus Acute on chronic renal failure: Improved today, continue to follow NSTEMI (non-ST elevated myocardial infarction): Still no further chest pain and troponin is improved Chronic hypoxic respiratory failure: Still on baseline 3 L Chronic heart failure with preserved ejection fraction (HFpEF): BNP is better today Hypertension: Stable, continue with current medications except holding the diuretics HLD (hyperlipidemia): Continue with current medications CKD (chronic kidney disease) stage 3, GFR 30-59 ml/min: Improved today Hypothyroid: Continue with current medications Lung mass: Outpatient follow-up scheduled Persistent atrial fibrillation: Heart rate stable Diabetes: Continue current treatment plan Depression: Continue with home medications GERD without esophagitis: Changed to Protonix Admission status: Patient was admitted observation, patient not improving, difficulty manage secondary to her heart failure so cannot be overly aggressive with fluid resuscitation, will give small fluid bolus this evening, medically necessary treatment will span 2 midnights will change her to inpatient status
[2024-08-16] MEDS: 0.9 % SODIUM CHLORIDE 500 ML IV (15:40)
[2024-08-16 16:10] VITALS: BP 137/78; PULSE 93; TEMP 36.3; O2SAT 96
[2024-08-16 16:10] LABS: Glucometer 149 mg/dL (74-106)
[2024-08-16] MEDS: PANTOPRAZOLE SODIUM 40 MG VIAL IV (17:15)
[2024-08-16 19:35] VITALS: BP 117/67; PULSE 60; TEMP 36.1; O2SAT 93
[2024-08-16 19:45] LABS: Glucometer 150 mg/dL (74-106)
[2024-08-16] MEDS: ROPINIROLE HCL 0.25 MG TABLET PO (21:22)
[2024-08-16] MEDS: CARVEDILOL 12.5 MG TABLET PO (21:22)
[2024-08-16] MEDS: ALPRAZOLAM 0.25 MG TABLET PO (21:22)
[2024-08-16] MEDS: ATORVASTATIN CALCIUM 20 MG TABLET PO (21:23)
[2024-08-17 00:27] VITALS: BP 99/67; PULSE 95; TEMP 36.4; O2SAT 94
[2024-08-17] MEDS: TRAZODONE HCL 50 MG TABLET 25 MG PO (01:14)
[2024-08-17 05:37] VITALS: BP 115/76; PULSE 82; TEMP 36.5; O2SAT 98
[2024-08-17 06:00] LABS: Basophils Percent Auto 0.1 % (0.2-2.0); Eosinophils Absolute Auto 0.1 10^3/uL (0.0-0.7); Eosinophils Percent Auto 1.5 % (0.9-7.0); Hematocrit 26.9 % (36.0-48.0); Immature Granulocytes Abs Auto 0.03 10^3/uL (0.00-0.03); Immature Granulocytes Pct Auto 0.4 % (0.0-0.5); Lymphocytes Absolute Auto 0.7 10^3/uL (1.2-3.8); Lymphocytes Percent Auto 10.3 % (20.5-60.0); Mean Corpuscular HGB Conc 29.7 g/dL (29.9-35.2); Mean Corpuscular Hemoglobin 27.2 pg (26.7-34.0); Mean Corpuscular Volume 91.5 fL (81.0-99.0); Mean Platelet Volume 9.9 fL (9.5-13.5); Monocytes Absolute Auto 0.8 10^3/uL (0.3-0.8); Monocytes Percent Auto 11.8 % (1.7-12.0); Neutrophils Absolute Auto 5.2 10^3/uL (1.4-6.5); Neutrophils Percent Auto 75.9 % (43.0-75.0); Platelet Count 214 10^3/uL (150-450); Red Blood Count 2.94 10^6/uL (4.20-5.40); Red Cell Distribution Width 15.5 % (11.0-15.0); White Blood Count 6.9 10^3/uL (4.0-11.0)
[2024-08-17] MEDS: HYOSCYAMINE SULFATE 0.125 MG TAB.SUBL 0.25 MG SL (06:05)
[2024-08-17] MEDS: GABAPENTIN 100 MG CAPSULE PO (06:05)
[2024-08-17 06:20] LABS: Alanine Aminotransferase 10 U/L (14-59); Albumin Globulin Ratio 0.6; Albumin Level 2.6 g/dL (3.4-5.0); Alkaline Phosphatase 69 U/L (46-116); Anion Gap 11.9; Aspartate Amino Transferase 19 U/L (15-37); BUN Creatinine Ratio 21.6; Bilirubin Total 0.5 mg/dL (0.2-1.0); Calcium 8.4 mg/dL (8.5-10.1); Carbon Dioxide 27.6 mmol/L (21.0-32.0); Chloride 103 mmol/L (98-107); Estimated GFR (African America 37 (>=60 mL/min/1.73m^2); Estimated GFR (Non-African Ame 30 (>=60 mL/min/1.73m^2); Globulin 4.4 g/dL; Glucose 112 mg/dL (74-106); Potassium 3.5 mmol/L (3.5-5.1); Sodium 139 mmol/L (136-145)
[2024-08-17 08:00] VITALS: BP 122/75; PULSE 86; TEMP 36.4; O2SAT 94
--- NOTE | 2024-08-17 09:27 | P.DS_ITS ---
DS: Providers Provider Date of admission: 08/15/24 00:25 Primary care physician: JHONATAN LUCIA Consults: 08/15/24 Occupational Therapy Eval and Treat Routine Reason for consultation: weakness Physical Therapy Eval and Treat Routine Reason for consultation: weakness DS: Diagnosis Discharge Diagnosis (1) Gastroenteritis: (2) Acute on chronic renal failure: Qualifiers: Acute renal failure type: unspecified Chronic kidney disease stage: stage 3 (moderate) Chronic kidney disease stage 3 subtype: stage 3b (GFR 30-44) Qualified Code(s): N17.9 - Acute kidney failure, unspecified; N18.32 - Chronic kidney disease, stage 3b (3) NSTEMI (non-ST elevated myocardial infarction): (4) Chronic hypoxic respiratory failure: (5) Chronic heart failure with preserved ejection fraction (HFpEF): (6) Hypertension: Qualifiers: Hypertension type: primary hypertension Qualified Code(s): I10 - Essential (primary) hypertension (7) HLD (hyperlipidemia): Qualifiers: Hyperlipidemia type: unspecified Qualified Code(s): E78.5 - Hyperlipidemia, unspecified (8) CKD (chronic kidney disease) stage 3, GFR 30-59 ml/min: Qualifiers: Chronic kidney disease stage 3 subtype: stage 3a (GFR 45-59) Qualified Code(s): N18.31 - Chronic kidney disease, stage 3a (9) Hypothyroid: Qualifiers: Hypothyroidism type: unspecified Qualified Code(s): E03.9 - Hypothyroidism, unspecified (10) Lung mass: (11) Persistent atrial fibrillation: (12) Diabetes: Qualifiers: Chronic kidney disease stage: stage 3 (moderate) Chronic kidney disease stage 3 subtype: stage 3b (GFR 30-44) Diabetes mellitus complication detail: with chronic kidney disease Diabetes mellitus complication status: with kidney complications 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: with 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 Diabetes mellitus type: type 2 Qualified Code(s): E11.22 - Type 2 diabetes mellitus with diabetic chronic kidney disease; N18.32 - Chronic kidney disease, stage 3b; Z79.4 - FDC (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 of insulin (13) Depression: Qualifiers: Depression Type: unspecified Qualified Code(s): F32.A - Depression, unspecified (14) GERD without esophagitis: Plan Gastroenteritis: Try to eat breakfast and lunch and still had emesis, increased frequency of the Zofran which patient was reluctant to use, hold off on further diuretics and give small fluid bolus Acute on chronic renal failure: Stable at the time of discharge NSTEMI type II (non-ST elevated myocardial infarction): Stable Chronic hypoxic respiratory failure: Still on baseline 3 L Chronic heart failure with preserved ejection fraction (HFpEF): Stable Hypertension: Stable HLD (hyperlipidemia): Continue with current medications CKD (chronic kidney disease) stage 3, GFR 30-59 ml/min: Improved today Hypothyroid: Continue with current medications Lung mass: Outpatient follow-up scheduled Persistent atrial fibrillation: Heart rate stable Diabetes: Continue current treatment plan Depression: Continue with home medications GERD without esophagitis: Changed to Protonix Admission status: Patient was admitted observation, patient not improving, difficulty manage secondary to her heart failure so cannot be overly aggressive with fluid resuscitation, will give small fluid bolus this evening, medically necessary treatment will span 2 midnights will change her to inpatient status ? DS: Summary Hospital Course Hospital Course: Patient mated with severe gastroenteritis symptoms, severe hypokalemia, significant leukocytosis, those were all improving at the time of discharge there is a question of NSTEMI secondary to stress from the above. Laboratory results were improved, she was able to eat some last night, will try that again this morning if she tolerates her breakfast diet and ambulating safely she can be discharged to home in improving condition. Medications see list. Follow-up with your PCP this week. Time Spent with Patient Time attestation: Total time spent providing and/or coordinating discharge services: Exam Constitutional Vital Signs, click to edit/add: Last Vital Signs Temp 97.7 F 08/17/24 05:37 Pulse 82 08/17/24 05:37 Resp 18 08/17/24 05:37 BP 115/76 08/17/24 05:37 Pulse Ox 98 08/17/24 05:37 O2 Del Method Nasal Cannula 08/17/24 05:37 O2 Flow Rate 3 08/17/24 05:37 Documenting provider has reviewed patient's vital signs: yes Common normals: no apparent distress Chest Common normals: inspection of chest normal Respiratory Common normals: normal respiratory effort; not clear to ascultation bilaterally (Unchanged, likely her baseline) Auscultation: rhonchi (Diffuse rhonchi but that is probably her normal); no wheezes Cardio Common normals: regular rate and regular rhythm GI Common normals: Normal to inspection, nondistended, normoactive bowel sounds pre sent DS: Data Data Completed and Pending Labs on day of discharge: Labs from last 24 hours 08/17/24 08/16/24 08/16/24 05:44 19:43 16:09 WBC 6.9 RBC 2.94 L Hgb 8.0 L Hct 26.9 L MCV 91.5 MCH 27.2 MCHC 29.7 L RDW 15.5 H Plt Count 214 MPV 9.9 Neut % (Auto) 75.9 H Lymph % (Auto) 10.3 L Cowley % (Auto) 11.8 Eos % (Auto) 1.5 Baso % (Auto) 0.1 L Neut # (Auto) 5.2 Lymph # (Auto) 0.7 L Cowley # (Auto) 0.8 Eos # (Auto) 0.1 Baso # (Auto) 0.0 Abs Immat Gran (auto) 0.03 Imm/Tot Granulo (auto) 0.4 Sodium 139 Potassium 3.5 Chloride 103 Carbon Dioxide 27.6 Anion Gap 11.9 BUN 35.0 H Creatinine 1.62 H Est GFR ( Amer) 37 L Est GFR (Non-Af Amer) 30 L BUN/Creatinine Ratio 21.6 Glucose 112 H Calcium 8.4 L Total Bilirubin 0.5 AST 19 ALT 10 L Alkaline Phosphatase 69 NT-Pro-B Natriuret Pep Total Protein 7.0 Albumin 2.6 L Globulin 4.4 Albumin/Globulin Ratio 0.6 POC Glucose 150 H 149 H 08/16/24 05:42 WBC RBC Hgb Hct MCV MCH MCHC RDW Plt Count MPV Neut % (Auto) Lymph % (Auto) Cowley % (Auto) Eos % (Auto) Baso % (Auto) Neut # (Auto) Lymph # (Auto) Cowley # (Auto) Eos # (Auto) Baso # (Auto) Abs Immat Gran (auto) Imm/Tot Granulo (auto) Sodium Potassium Chloride Carbon Dioxide Anion Gap BUN Creatinine Est GFR ( Amer) Est GFR (Non-Af Amer) BUN/Creatinine Ratio Glucose Calcium Total Bilirubin AST ALT Alkaline Phosphatase NT-Pro-B Natriuret Pep 57901.0 H* Total Protein Albumin Globulin Albumin/Globulin Ratio POC Glucose Discharge Plan Discharge Disposition: Home, Self-Care Condition: Fair Discharge Medications: New hyoscyamine sulfate 0.125 mg tablet,disintegrating 0.25 mg PO Q6H MDD 8 PRN (Reason: abd painb, diarrhea) Qty: 30 0RF ondansetron 4 mg tablet,disintegrating 4 mg PO Q6H PRN (Reason: nausea and vomiting) Qty: 20 0RF Continued Jardiance 10 mg tablet 10 mg PO DAILY carvedilol [Coreg] 12.5 mg tablet 12.5 mg PO BID Rx Instructions: must administer with a meal/food alprazolam 0.25 mg tablet 0.25 mg PO Q6H PRN (Reason: anxiety) atorvastatin 20 mg tablet 20 mg PO QPM bupropion HCl 150 mg tablet sustained-release 12 hr 150 mg PO BID digoxin 125 mcg (0.125 mg) tablet 0.125 mg PO .QD insulin lispro protamin-lispro 100 unit/mL (75-25) insulin pen 8 unit SUBCUT BID omeprazole 40 mg capsule,delayed release(DR/EC) 40 mg PO DAILY ropinirole 0.25 mg tablet 0.25 mg PO QPM torsemide 20 mg tablet 50 mg PO DAILY escitalopram oxalate 10 mg tablet 10 mg PO DAILY gabapentin 100 mg capsule 100 mg PO TID spironolactone [Aldactone] 25 mg tablet 25 mg PO DAILY Qty: 30 0RF Print Language: Cameroonian Forms: Portal Instructions
[2024-08-17] MEDS: ESCITALOPRAM 10 MG TABLET PO (10:10)
[2024-08-17] MEDS: CARVEDILOL 12.5 MG TABLET PO (10:10)
[2024-08-17] MEDS: POTASSIUM CHLORIDE 10 MEQ ER TABLET 20 MEQ PO (10:10)
[2024-08-17] MEDS: HEPARIN SODIUM (PORCINE) 5,000 UNIT/ML VIAL 5000 UNIT SUBQ (10:11)
[2024-08-17] MEDS: BUPROPION HCL 150 MG SR TABLET 12H PO (10:14)
[2024-08-17 12:00] VITALS: BP 122/74; PULSE 85; TEMP 36.3; O2SAT 94
--- NOTE | 2024-08-18 11:59 | CM.DCFOLLOWU ---
Person spoke with: Jenni How are you feeling? Still fatigued and now having diarrhea, discussed with pt about moving her appt up with her PCP. Pt was going to call today How is your pain? No pain Did you understand your discharge instructions? Yes Do you have any questions about your discharge instructions? No Were you given any prescriptions at discharge? Yes Were you able to get your prescriptions filled? Yes Do you understand how to take your medications as ordered? Yes Do you have any questions about your follow up appointment and do you plan to keep your follow up appointment? No it is scheduled for 08/27 but she is going to call today and try to move appt up. Is there anything else that you would like to discuss? No Questions/Comments/Concerns/Other:
== END 2024-08-17 12:25 | disposition home health service (06) | DRG 391 ==
LOC: ER 23:54 → MS 08-15 06:03
PROVIDERS: Family Medicine; Registered Nurse; Admitting Provider Family Medicine; Emergency Provider Emergency Medicine; PCP Internal Medicine; Visit Provider Family Medicine
DX: K52.9 Noninfective gastroenteritis and colitis, unspecified (principal); I21.A1 Myocardial infarction type 2; I48.19 Other persistent atrial fibrillation; I50.32 Chronic diastolic (congestive) heart failure; I13.0 Hypertensive heart and chronic kidney disease with heart failure and stage 1 through stage 4 chronic kidney disease, or unspecified chronic kidney disease; N17.9 Acute kidney failure, unspecified; J96.11 Chronic respiratory failure with hypoxia; E86.0 Dehydration; F41.9 Anxiety disorder, unspecified; E78.5 Hyperlipidemia, unspecified; I27.20 Pulmonary hypertension, unspecified; G25.81 Restless legs syndrome; J44.9 Chronic obstructive pulmonary disease, unspecified; E11.22 Type 2 diabetes mellitus with diabetic chronic kidney disease; Z79.4 Long term (current) use of insulin; Z79.899 Other long term (current) drug therapy; Z99.81 Dependence on supplemental oxygen; Z90.49 Acquired absence of other specified parts of digestive tract; K57.30 Diverticulosis of large intestine without perforation or abscess without bleeding; K21.9 Gastro-esophageal reflux disease without esophagitis; F32.A Depression, unspecified; E03.9 Hypothyroidism, unspecified; Z90.710 Acquired absence of both cervix and uterus; Z95.2 Presence of prosthetic heart valve; Z87.891 Personal history of nicotine dependence; Z79.84 Long term (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 of oral hypoglycemic drugs; R91.8 Other nonspecific abnormal finding of lung field; Z66 Do not resuscitate; N18.32 Chronic kidney disease, stage 3b; E87.6 Hypokalemia
CPT/HCPCS: 36415; 74022; 74176; 80048; 80053; 80162; 82948; 83735; 83880; 84484; 85007; 85025; 85027; 87045; 87046; 87427; 87493; 87804; 87811; 93005; 96361; 96374; 96375; 97161; 97165; 99285; G0328; J1644; J2060; J2405

== ENCOUNTER 2024-09-11 11:50 | Outpatient (OUT) | payer MEDICARE, OTHER, SELFPAY ==
--- OUTSIDE RECORDS SUMMARY | 2024-09-11 12:05 | XMS_ITS | CCD ---
Author Organization [facility] Care Team Providers Care Ophthalmic Pathologist Name Role Phone GRETTA OMALLEY Admitting Unavailable [...] ROSINA MENENDEZ Consulting Unavailable CALLI ., DR SAHYY Azul Consulting Unavailable CALLI ., DR SHAYY [...] Unavailable LEÓN, DR ISRAEL Primary Care Unavailable BRENT ZAIDI Consulting Unavailable BRENT ZAIDI Attending Unavailable DYAN, BRENT Admitting Unavailable LEÓN, DR ISRAEL Primary Care Unavailable DYAN, BRENT Consulting Unavailable DYANFILIBERTO TOWNSENDA Attending Unavailable DYAN, BRENT Admitting Unavailable LEÓN, DR ISRAEL Primary Care Unavailable YRIS, FARZANEH Consulting Unavailable YRISISAURAFARZANEH Attending Unavailable HOAlexey ., DR MEJIA Primary Care Unavailable YRIS, FARZANEH Admitting Unavailable LEÓN, DR ISRAEL Primary Care Unavailable WEST, DR MEENA Boucher Consulting Unavailable VERNA, AHMAD Attending Unavailable VERNA, AHMAD Admitting Unavailable LAKESHIA FOSSMAD Consulting Unavailable Jasvir León MD Primary Care Provider KD HINES Admitting Unavailable BAHKD Judd Attending Unavailable JASVIR LEÓN Primary Care Unavailable KD HINES Attending Unavailable JASVIR LEÓN Primary Care Unavailable BAHJAYLAN JuddT M Admitting Unavailable JASVIR LEÓN Primary Care Unavailable BAHKD Judd Attending Unavailable JASVIR LEÓN Primary Care Unavailable BAHJAYLAN JdudT M Admitting Unavailable JEWELL León Primary Care Provider [phone] DO Lalo Carter Admit Provider MD Javan Gruber Attending Provider Jasvir Lóen MD Primary Care Provider [phone] Jasvir León MD Unavailable Isaura Childs Consulting Unavailable Javan Gruber Attending Unavailable Jasvir León Primary Care Unavailable Lalo Carter Admitting Unavailabl Ingrid Hussein Consulting Unavailable Palmira Lowery Consulting Unavailable Jaron Sands Consulting Unavail able Christofer Hairston Consulting Unavailable Juwan Coelho Consulting Unavailab Bridgette Peguero Consulting Unavailable Jack, Becky Consulting Unavailable Ruddy, Marisol Verma Consulting Unavailab Genet Barclay Consulting Unavailable Bubba, Angella Bingham Consulting Unavailable Latrice MALIK, Leora Unavailable CHAVARRIA, HOMA Referring Unavailable CHAVARRIA, HOMA Referring Unavailable CHAVARRIA, HOMA Referring Unavailable YRISFARZANEH Galvan Attending Unavailable MOUKARBEL, JOSEFINA Attending Unavailable DYANBRENT Attending Unavailable MOUKARBEL, JOSEFINA Referring Unavailable MOUKARBEL, JOSEFINA Attending Unavailable MOUKARBEL, JOSEFINA Admitting Unavailable MOUKARBEL, JOSEFINA Referring Unavailable MOUKARBEL, JOSEFINA Attending Unavailable MOUKARBEL, JOSEFINA Admitting Unavailable MOUKARBEL, JOSEFINA Attending Unavailable DERISO, CRAIG Attending Unavailable CHAVARRIA, HOMA Referring Unavailable MOUKARBEL, JOSEFINA Referring Unavailable MOUKARBEL, JOSEFINA Referring Unavailable MOUKARBEL, JOSEFINA Attending Unavailable MOUKARBEL, JOSEFINA Attending Unavailable CHAVARRIA, HOMA Referring Unavailable MOUKARBEL, JOSEFINA Referring Unavailable CHAVARRIA, HOMA Referring Unavailable HEMROSINA BURTON Attending Unavailable JASVIR LEÓN Attending Unavailable SARAH RODRIGUEZ Attending Unavailable JASVIR LEÓN Attending Unavailable KHARI, JASVIR Mccormack Attending Unavailable JASVIR LEÓN Attending Unavailable Allergies Allergy Classification Reported Allergen(s) Allergy Type Date of Onset Reaction(s) Facility (5 sources) Codeine; Translations: [CODEINE] Drug Allergy 4 abdominal pain [facility] Repository (5 sources) Penicillins; Translations: [PENICILLINS] Drug allergy (disorder) 2 rash [facility] Repository (1 source) penicillian Propensity to adverse reactions rash [employer] Other (1 source) codiene Propensity to adverse reactions abdominal pain [employer] Other (2 sources) sacubitril / valsartan Drug Allergy 2 [facility] Repository (19 sources) Codeine Drug Allergy 3 Other (See Comments) [facility] (1 source) Penicillins Propensity to adverse reactions to drug 3 Rash [facility] Work Phone: (20 sources) sacubitril / valsartan; Translations: [SACUBITRIL-ARJUN SARTAN] Drug Allergy 2 Rash [facility] (18 sources) Penicillin G Drug Allergy 3 Rash, Other [facility] (1 source) Codeine Drug Allergy 4 [facility] Repository (1 source) Penicillins Drug allergy (disorder) 4 [facility] Repository Medications Current Medications Medication Drug Class(es) Dates Sig (Normalized) Sig (Original) acetaminophen 325 mg oral tablet (19 sources) take 1 tablet by mouth every six hours as needed acetaminophen (Tylenol) 325 MG tablet Take 325 mg by mouth every 6 (six) hours if needed. Active take 2 tablets by mo ut every six hours as needed for pain acetaminophen (TYLENOL) 325 MG tablet Ta ke 2 tablets by mouth every 6 hours as needed for Pain 0 Active acetaminophen 325 mg / HYDROcodone bitartrate 5 mg oral tablet (6 sources) Opioid Agonist Start: 08-27-2024 End: 09-06-2024 take 1 tablet by mouth every four hours for pain HYDROcodone-acetaminophen ([place]) 5-325 MG tablet Indications: Spinal stenosis at L4-L5 level Take 1 tablet by mouth every 4 (four) hours if needed for severe pain for up to 10 days 60 tablet 08/27/2024 09/06/2024 Active Start: 06-27-2024 End: 07-07-2024 take 1 tablet by mouth every four hours for pain HYDROcodone-acetaminophen ([place]) 5-325 MG tablet Indications: Spinal stenosis at L4-L5 level Take 1 tablet by mouth every 4 (four) hours if needed for severe pain for up to 10 days 60 tablet 06/27/2024 07/07/2024 Active Start: 05-08-2024 End: 05-18-2024 take 1 tablet by mouth every four hours for pain HYDROcodone-acetaminophen ([place]) 5-325 MG tablet Indications: Spinal stenosis at [...] 2024 12:00am ALPRAZolam 0.25 mg oral tablet (20 sources) Benzodiazepine Start: 02-13-2024 End: 12-20-2024 ALPRAZolam (Xanax) 0.25 MG tablet Indications: Anxiety Take 1-2 tablets (0.25-0.5 mg) by mouth as needed at bedtime for anxiety 60 tablet 08/20/2024 09/19/2024 Active take 1 tablet by codi th every six hours as needed for anxiety ALPRAZolam (XANAX) 0.25 MG tablet Take 1 tablet by mouth every 6 hours as needed for Anxiety. 0 Active take 1 tablet by mouth every eig ht hours Xanax 0.25 MG 1 tablet Orally Three times a day Active amLODIPine 5 mg oral tablet (19 sources) Dihydropyridine Calcium Channel Soumya Start: 02-09-2023 [...] 0 Active atorvastatin 20 mg oral tablet (20 sources) HMG-CoA Reductase Inhibitor Start: 06-25-2024 take [...] hydrochloride 150 mg extended release oral tablet (20 sources) Aminoketone Start: 10-16-2023 take 150 mg [...] mg / cholecalciferol 200 unt oral tablet (18 sources) Vitamin D Calcium Carb-Cholecalciferol 600-200 MG-UNIT tablet Take by mouth 1 (one) time each day at the same time. Active carvedilol 12.5 mg oral tablet (20 sources) alpha-Adrener gic Soumya, beta-Adrenerg ic Soumya [...] 07/11/2024 Active clotrimazole 10 mg oral lozenge (18 sources) Azole Antifungal Start: 08-03-2021 take 10 mg by mouth every eight hours clotrimazole (Mycelex) 10 MG erinn Take 10 mg by mouth every 8 (eight) hours PRN 08/03/2021 Active colchicine 0.6 mg oral tablet (18 sources) Start: 11-02-2023 End: 11-01-2024 take 1 tablet by mouth once daily colchicine 0.6 MG tablet Indications: Gout, unspecified cause, unspecified chronicity, unspecified site Take 1 tablet (0.6 mg) by mouth Daily 30 tablet 1 11/02/2023 11/01/2024 Active Continuous Glucose Computer Systems Integrator (FreeStyle Marguerite 2 [place]) device (8 sources) Continuous Gluco se Computer Systems Integrator (FreeStyle Marguerite 2 [place]) device 1 Device Active Continuous Glucose Sensor (FreeStyle Marguerite 2 Plus Sensor) misc (8 sources) Continuous Gluco se Sensor (FreeStyle Marguerite 2 Plus Sensor) misc 1 Application continuously Active dapagliflozin 10 mg oral tablet (7 sources) Sodium-Glucose Cotransporter 2 Inhibitor Start: 07-25-2024 End: 07-25-2025 take 10 mg by mouth in the morning dapagliflozin (Farxiga) 10 MG Take 10 mg by mouth in the morning. 07/25/2024 07/25/2025 Active digoxin 0.125 mg oral tablet (20 sources) Cardiac Glycoside Start: 06-26-2024 take 1 [...] 12/25/2024 Active escitalopram 10 mg oral tablet (20 sources) Serotonin Reuptake Inhibitor Start: 10-16-19 24 [...] day(s) Active gabapentin 100 mg oral capsule (20 sources) Anti-epileptic Agent Start: 4 take 1 [...] by mouth 3 times daily. 0 Active hyoscyamine sulfate 0.125 mg disintegrating oral tablet (6 sources) Start: 08-16-2024 take 2 tablets under the tongue every six hours as needed hyoscyamine (Anaspaz) 0.[address] 0.25 mg under the tongue every 6 (six) hours if needed 08/16/2024 Active 3 ml insulin lispro 25 unt/ml / insulin lispro protamine, human 75 unt/ml pen injector (20 sources) Insulin Analog Start: 04-29-2024 End: 05-28-2024 [...] 12:00am ammonium lactate 120 mg/ml topical lotion (18 sources) Start: 09-01-2021 ammonium lactate (Lac-Hydrin) 12 % lotion Apply 1 application topically if needed. 09/01/2021 Active lidocaine 0.04 mg/mg medicated patch (1 source) Antiarrhythmic, Amide Local Anesthetic Start: 04-25-2024 apply 1 dose topically twice daily Lidocaine (Aspercreme (Lidocaine)) 4 % adhesive patch,medicated Active 1 PATCH TOPICAL Twice daily April 25, 2024 12:00am lisinopril 20 mg oral tablet (19 sources) Angiotensin Converting Enzyme Inhibitor Start: 02-09-2023 [...] omeprazole 40 mg delayed release oral capsule (20 sources) Proton Pump Inhibitor Start: 10-16-2023 take 1 capsule by mouth once daily omeprazole (PriLOSEC) [address] capsule Indications: Gastroesophageal reflux disease, unspecified whether esophagitis present TAKE 1 CAPSULE BY MOUTH DAILY 100 capsule 3 03/05/2024 Active take 1 capsule by mouth once tung ly omeprazole (PRILOSEC) 40 MG delayed release capsule Take 1 capsule by mouth daily 0 Active ondansetron 4 mg disintegrating oral tablet (10 sources) Serotonin-3 Receptor Antagonist Start: 08-16-2024 take 1 tablet by mouth every six hours as needed for nausea and vomiting ondansetron ODT (Zofran-ODT) 4 MG disintegrating tablet Take 4 mg by mouth every 6 (six) hours if needed for nausea or vomiting 08/16/2024 Active Start: 08-14-2024 End: 08-21-2024 take 1 tablet by mouth every eight hours for nausea ondansetron (Zofran) 4 MG tablet Indications: Nausea and vomiting, unspecified vomiting type Take 1 tablet (4 mg) by mouth every 8 (eight) hours if needed for nausea or vomiting for up to 7 days 20 tablet 08/14/2024 08/20/2024 Discontinued (Other) Oxygen (6 sources) oxygen (O2) gas Inhale 2 L/min continuously via nasal canula Active pantoprazole 40 mg delayed release oral tablet (1 source) Proton Pump Inhibitor take 1 tablet by mouth every twenty-four hours Protonix 40 MG 1 tablet Orally Once a day for 30 day(s) Active rOPINIRole 0.25 mg oral tablet (20 sources) Nonergot Dopamine Agonist Start: take 1 [...] 0 Active spironolactone 25 mg oral tablet (19 sources) Aldosterone Antagonist Start: 06-26-2024 End: 06-26-2025 [...] 01/02/2025 Active tiZANidine 4 mg oral tablet (18 sources) Central alpha-2 Adrenergic Agonist Start: 07-31-2024 End: 09-09-2024 take 1 tablet by mouth every eight hours for muscle spasms tiZANidine (Zanaflex) 4 MG tablet Indications: Lumbar paraspinal muscle spasm Take 1 tablet (4 mg) by mouth every 8 (eight) hours if needed for muscle spasms 30 tablet 3 07/31/2024 09/09/2024 Active Start: 04-11-2023 take 1 tablet by codi th every eight hours for muscle spasms tiZANidine [...] 0 Active torsemide 20 mg oral tablet (20 sources) Loop Diuretic Start: 08-11-2024 take 3 tablets by mouth once daily torsemide (Demadex) 20 MG tablet Indications: Acute combined systolic and diastolic heart failure (CMS/HCC) Take 3 tablets (60 mg) by mouth Daily 08/11/2024 Active Start: 07-17-2024 take 2.5 tablets by mouth [...] Mouth bid for 7 day(s) Aug, Not-Taking levothyroxine sodium 0.05 mg oral tablet (16 sources) l-Thyroxine Start: 11-15-2022 End: 08-20-2024 take 1 tablet by mouth before mealtime levothyroxine (Synthroid, Levoxyl) 50 MCG tablet Take 1 tablet by mouth in the morning. Take before meals. 11/15/2022 08/20/2024 Discontinued (Other) Mupirocin (1 source) RNA Synthetase Inhibitor Antibacterial [...] [ACUTE KIDNEY FAILURE UNSPECIFIED] Onset: 11-21-2022 Episodic Acute myocardial infarction (2 sources) Myocardial infarction; Translations: [Non-ST elevation (NSTEMI) myocardial infarction] 08-20-2024 Chronic Allergic reactions (3 sources) Allergy status to penicillin; Translations: [Allergy status to other drugs, medicaments and biological substances status] Onset: 11-21-2022 Episodic Anxiety disorders (20 sources) Mixed anxiety and depressive disorder; Translations: [Other specified anxiety disorders] Onset: 11-21-2022 11-21-2022 Chronic Asthma (19 sources) Unspecified asthma, uncomplicated; Translations: [Asthma] Onset: [...] 06-07-2022 Chronic obstructive pulmonary disease and bronchiectasis (20 sources) Chronic obstructive lung disease; Translations: [Chronic [...] 04-19-2022 04-25-2024 Chronic Disorders of lipid metabolism (19 sources) Pure hypercholesterolemia, unspecified; Translations: [Hyperlipidemia] Onset: 11-21-2022 11-21-2022 Chronic Diverticulosis and diverticulitis (18 sources) Diverticulosis of colon; Translations: [Diverticulosis of large intestine without perforation or abscess without bleeding] Onset: 11-21-2022 11-21-2022 Chronic Esophageal disorders (20 sources) Gastro-esophageal reflux disease without esophagitis; Translations: [Gastroesophageal reflux disease] Onset: 11-21-2022 04-25-2024 Chronic Essential hypertension (20 sources) Essential (primary) hypertension; Translations: [Hypertensive disorder] Onset: 04-19-2022 04-25-2024 Chronic Fluid and electrolyte disorders (2 sources) Hyperkalemia; Translations: [Dehydration] Onset: 05-08-2022 Episodic Genitourinary symptoms and ill-defined conditions (18 sources) Urinary incontinence; Translations: [Unspecified urinary incontinence] [...] kidney disease] Onset: 02-14-2022 Chronic Menopausal disorders (18 sources) Primary ovarian failure; Translations: [Other primary ovarian failure] Onset: 11-21-2022 11-21-2022 Chronic Menopausal disorders (1 source) Hormone replacement therapy; Translations: [HORMONE REPLACEMENT THERAPY] Onset: 11-21-2022 Episodic Mood disorders (1 source) Mood disorders; Translations: [DEPRESSION UNSPECIFIED] Onset: 11-21-2022 Noninfectious gastroenteritis (2 sources) Gastroenteritis; Translations: [Noninfective gastroenteritis and colitis, unspecified] 08-20-2024 Episodic Nonspecific chest pain (3 sources) Chest pain; Translations: [Chest pain, unspecified] Onset: 04-25-2024 04-25-2024 Episodic Osteoarthritis (20 sources) Arthritis of right ankle; Translations: [Primary osteoarthritis, right ankle and foot] Onset: 11-21-2022 11-21-2022 Chronic Other acquired deformities (18 sources) Contracture of joint of right ankle; Translations: [Contracture, right ankle] Onset: 11-21-2022 11-21-2022 Chronic Other aftercare (1 source) director long term care (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 of insulin; Translations: [STENOCAPTIONER CURRENT USE OF INSULIN] Onset: 11-21-2022 Episodic Other aftercare (1 source) director long term care (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 of aspirin; Translations: [STENOCAPTIONER CURRENT USE OF ASPIRIN] Onset: 11-21-2022 Episodic Other aftercare (1 source) Other dedicated intermodal truck driver (current) drug therapy; Translations: [OTH RETIREMENT CURRENT DRUG THERAPY] Onset: 11-21-2022 Episodic Other and ill-defined heart disease (18 sources) Diastolic dysfunction; Translations: [Other ill-defined heart diseases] Onset: 11-21-2022 11-21-2022 Chronic Other circulatory disease (2 sources) Other specified symptoms and signs involving the circulatory and respiratory systems; Translations: [Other specified symptoms and signs involving the circulatory and respiratory systems] Onset: 05-29-2024 Episodic Other connective tissue disease (5 sources) Neurogenic claudication; Translations: [Other symptoms and signs involving the nervous system] Onset: 06-02-2024 08-20-2024 Episodic Other ear and sense organ disorders (2 sources) Otalgia, left ear; Translations: [Otalgia, unspecified] 08-20-2024 Episodic Other eye disorders (1 source) Cataract [...] closed fracture] Onset: 05-09-2023 Episodic Other fractures (2 sources) Fracture of one rib, left side, initial encounter for closed fracture; Translations: [Closed fracture of rib(s), unspecified] Onset: 04-25-2024 04-25-2024 Episodic Other fractures (2 sources) Closed fracture of multiple ribs; Translations: [Multiple fractures of ribs, right side, subsequent encounter for fracture with routine healing] 05-08-2024 Episodic Other hereditary and degenerative nervous system conditions (18 sources) Restless legs; Translations: [Restless legs syndrome] [...] forms of dyspnea] Onset: 05-15-2024 Episodic Other lower respiratory disease (7 sources) Lung mass; Translations: [Other nonspecific abnormal finding of lung field] Onset: 08-20-2024 08-20-2024 Episodic Other nervous system disorders (18 sources) Difficulty walking; Translations: [Difficulty in walking, not elsewhere classified] Onset: 11-21-2022 11-21-2022 Chronic Other nutritional; endocrine; and metabolic disorders (18 sources) Body mass index 30+ - obesity; Translations: [Obesity, unspecified] Onset: 11-21-2022 11-21-2022 Chronic Other upper respiratory disease (18 sources) Allergic rhinitis due to pollen; Translations: [Allergic rhinitis due to pollen] Onset: 11-21-2022 11-21-2022 Chronic Other upper respiratory infections (1 source) Chronic frontal sinusitis; Translations: [Sinusitis chronic, frontal] Chronic Peripheral and visceral atherosclerosis (18 sources) Peripheral vascular disease; Translations: [Peripheral vascular disease, unspecified] Onset: 11-21-2022 11-21-2022 Chronic Poisoning by other medications and drugs (1 source) Poisoning by cardiac-stimulant glycosides and drugs of similar action, accidental (unintentional), initial encounter; Translations: [PSN CARD GLYCOS RX SIM ACT ACC INIT] Onset: 10-12-2022 Episodic Pulmonary heart disease (20 sources) Pulmonary hypertension; Translations: [Pulmonary hypertension, unspecified] Onset: 10-30-2022 04-10-2023 Chronic Residual codes; unclassified (18 sources) Obstructive sleep apnea syndrome; Translations: [Obstructive [...] 11-21-2022 Episodic Respiratory failure; insufficiency; arrest (adult) (15 sources) Dependence on supplemental oxygen; Translations: [Chronic hypoxemic respiratory failure] Onset: 10-12-2022 08-20-2024 Chronic Screening and history of mental health and substance abuse codes (1 source) Personal history of nicotine dependence; Translations: [PERSONAL HISTORY OF NICOTINE DEPEND] Onset: 11-21-2022 Episodic Spondylosis; intervertebral disc disorders; other back problems (8 sources) Lumbar spondylosis; Translations: [Spondylosis without myelopathy or radiculopathy, lumbar region] Onset: 08-07-2023 08-07-2023 Chronic Spondylosis; intervertebral disc disorders; other back problems (20 sources) Lumbar radiculitis; Translations: [Radiculopathy, lumbar region] [...] Da te Episodic/Chronic Deficiency and other anemia (18 sources) Anemia; Translations: [Anemia, unspecified] Onset: 3 04-10-2023 Episodic Immunizations and screening for infectious disease (1 source) Contact with and (suspected) exposure to other viral communicable diseases Onset: 1 Resolved: 1 Episodic Intestinal obstruction without hernia (18 sources) Stenosis of colon; Translations: [Other intestinal obstruction unspecified as to partial versus complete obstruction] Onset: 3 11-21-2022 Episodic Nausea and vomiting (1 source) Nausea with vomiting, unspecified; Translations: [NAUSEA WITH VOMITING UNSPECIFIED] Onset: 2 Episodic Open wounds of extremities (1 source) Open wound of finger without complication; Translations: [Thumb laceration] Episodic Other aftercare (18 sources) Long-term current use of anticoagulant; Translations: [director long term care (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 of anticoagulants] Onset: 8 04-10-2023 Episodic Other bone disease and musculoskeletal deformities (18 sources) Osteopenia; Translations: [Other specified disorders of bone density and structure, multiple sites] Onset: 3 11-21-2022 Episodic Other connective tissue disease (4 sources) Pain in left foot; Translations: [PAIN IN LEFT FOOT] Onset: 2 Episodic Other connective tissue disease (18 sources) Muscle weakness; Translations: [Muscle weakness (generalized)] Onset: 3 11-21-2022 Episodic Other eye disorders (18 sources) Dry eyes; Translations: [Dry eye syndrome of bilateral lacrimal glands] Onset: 4 07-30-2023 Episodic Other fractures (6 sources) Fracture of left rib; Translations: [Fracture of one rib, left side, initial encounter for closed fracture] Onset: 4 04-25-2024 Episodic Other fractures (18 sources) Fracture of twelfth thoracic vertebra; Translations: [Wedge compression fracture of T11-T12 vertebra, initial encounter for closed fracture] Onset: 3 09-07-2023 Episodic Other gastrointestinal disorders (1 source) Diarrhea, unspecified; Translations: [DIARRHEA UNSPECIFIED] Onset: 2 Episodic Other gastrointestinal disorders (18 sources) Drug-induced constipation; Translations: [Drug induced constipation] Onset: 3 11-21-2022 Episodic Other lower respiratory disease (1 source) Cough; Translations: [Cough] Episodic Other lower respiratory disease (19 sources) Dyspnea; Translations: [Shortness of breath] Onset: 6 04-10-2023 Episodic Other nervous system disorders (18 sources) Unsteady when standing; Translations: [Unsteadiness on feet] Onset: 3 11-21-2022 Episodic Other nervous system disorders (18 sources) Abnormal gait; Translations: [Unspecified abnormalities of gait and mobility] Onset: 2 04-10-2023 Episodic Other nutritional; endocrine; and metabolic disorders (1 source) Abnormal weight loss; Translations: [ABNORMAL WEIGHT LOSS] Onset: 2 Episodic Other nutritional; endocrine; and metabolic disorders (18 sources) History of iron deficiency; Translations: [Personal history of other endocrine, nutritional and metabolic disease] Onset: 7 04-10-2023 Episodic Other screening for suspected conditions (not mental disorders or infectious disease) (20 sources) Electrocardiogram abnormal; Translations: [Abnormal electrocardiogram [ECG] [EKG]] Onset: 8 04-25-2024 Episodic Other upper respiratory infections (1 source) Acute upper respiratory infection, unspecified Onset: 1 Resolved: 1 Episodic Pathological fracture (15 sources) Pathological fracture of vertebra due to osteoporosis; Translations: [Age-related osteoporosis with current pathological fracture, vertebra(e), initial encounter for fracture] Onset: 3 Resolved: 5 05-09-2023 Episodic Pneumonia (except that caused by tuberculosis or sexually transmitted disease) (3 sources) Pneumonia, unspecified organism; Translations: [PNEUMONIA UNSPECIFIED ORGANISM] Onset: 2 Episodic Viral infection (19 sources) COVID-19; Translations: [Pneumonia due to other virus not elsewhere classified] Onset: 2 04-10-2023 Episodic Results Test Name Value Interpretation Reference Range Facility B TYPE NATRIURETIC PEPTIDE ( BNP)on 08-26-2024 Natriuretic peptide B (Bld) [Mass/Vol] 347 pg/mL High <100 [facility] Comment on above: Result Comment: BNP levels increase with age in the general population with the highest values seen in individuals greater than 75 years of age. Reference: J. Am. Priya. Cardiol. 2002; 40:976-982. Performed By: #### [id number] #### [facility] [address], [address] [place] [address] Piano Regulator: Boone Calderón MD BASIC METABOLIC PANELon 08-09 Calcium [Mass/Vol] 9.2 mg/dL Normal 8.6-10.4 [facility] Comment on above: Order Comment: FASTI NG:NO FASTING: NO Performed By: #### [id number] #### [facility] [place] [address] Piano Regulator: Boone Calderón MD Chloride [Moles/Vol] 89 mmol/L Low 98-110 [facility] Comment on above: Order Comment: FASTI NG:NO FASTING: NO Performed By: #### [id number] #### [facility] [place] [address] Piano Regulator: Boone Calderón MD CO2 [Moles/Vol] 38 mmol/L High 20-32 [facility] Diagnostics Comment on above: Order Comment: FASTI NG:NO FASTING: NO Performed By: #### 3 [id number], [id number] #### [facility] [place] [address] Piano Regulator: Boone Calderón MD Creatinine [Mass/Vol] 1.60 mg/dL High 0.60-0.95 [facility] Comment on above: Order Comment: FASTI NG:NO FASTING: NO Performed By: #### 3 [id number], [id number] #### [facility] [address], [address] [place] [address] Piano Regulator: Boone Calderón MD GFR/1.73 sq M.predicted among non-blacks MDRD (S/P/Bld) [Vol rate/Area] 31 mL/min/{1.73_m2} Low > OR = 60 [facility] Comment on above: Order Comment: FASTI NG:NO FASTING: NO Performed By: #### 3 [id number], [id number] #### [facility] [place] [address] Piano Regulator: Boone Calderón MD Glucose [Mass/Vol] 141 mg/dL High 65-139 [facility] Comment on above: Order Comment: FASTI NG:NO FASTING: NO Result Comment: Non-fasting reference interval For someone without known diabetes, a glucose value >125 mg/dL indicates that they may have diabetes and this should be confirmed with a follow-up test. Performed By: #### 3 [id number], [id number] #### [facility] [place] [address] Piano Regulator: Boone Calderón MD Potassium [Moles/Vol] 4.2 mmol/L Normal 3.5-5.3 [facility] Comment on above: Order Comment: FASTI NG:NO FASTING: NO Performed By: #### 3 7386, [id number] #### [facility] [place] [address] Piano Regulator: Boone Cadlerón MD Sodium [Moles/Vol] 137 mmol/L Normal 135-146 [facility] Comment on above: Order Comment: FASTI NG:NO FASTING: NO Performed By: #### 3 [id number], 94626 #### [facility] [place] [address] Piano Regulator: Boone Calderón MD Urea nitrogen [Mass/Vol] 30 mg/dL High 7-25 [facility] Comment on above: Order Comment: FASTI NG:NO FASTING: NO Performed By: #### 3 [id number], 82912 #### [facility] [place] [address] Piano Regulator: Boone Calderón MD Urea nitrogen/Creatinine [Mass ratio] 19 mg/mg Normal 6-22 [facility] Comment on above: Order Comment: FASTI NG:NO FASTING: NO Performed By: #### 3 [id number], [id number] #### [facility] [address] [facility], [address] [place] [address] Piano Regulator: Boone Calderón MD Laboratory - Hematology and Cell countson 08-20-2024 HbA1c (Bld) [Mass fraction] 6.8 % [facility] No Panel Informationon 08-20 Interpretation and review of laboratory results Abnormal [facility] E COLI SHIGA TOXIN EIAon E COLI SHIGA TOXIN EIA E coli Shiga Toxin EIA [facility] E COLI SHIGA TOXIN EIA Negative [facility] E COLI SHIGA TOXIN EIA Performed at: [facility] LabFormerly [facility] E COLI SHIGA TOXIN EIA [address] [place], [place] [id number] [facility] E COLI SHIGA TOXIN EIA Oil Lease Buyer: Scooby Mcfarlane PhD, Phone: [phone] [facility] Follow-Upon 07-25-2024 Follow-Up [id number] Jenni Quinones 1940 F Date Provider Department Center 07/25/2024 JOSEFINA STEIN SYMONE Stark Family History Problem Relation Age of Onset Diabetes Father Heart failure Father Other Other Family Status - Relation Status Age at Father Other Level of Service:07138 [place] OFFICE/OUTPATIENT ESTABLISHED MOD MDM 30 MIN Normal [facility] ALL BASIC METABOLIC PANELon 07-22-2024 Anion gap [Moles/Vol] 8.7 mmol/L [facility] Calcium [Mass/Vol] 9.1 mg/dL 8.5 - 10. 1 mg/dL [facility] Chloride [Moles/Vol] 102 mmol/L 98 - 10 7 mmol/L [facility] CO2 [Moles/Vol] 32.4 mmol/L High 21.0 - 32.0 mmol/L [facility] Creatinine [Mass/Vol] 1.64 mg/dL High 0.55 - 1.02 mg/dL [facility] GFR/1.73 sq M.predicted CKD-EPI (S/P/Bld) [Vol rate/Area] 36 Low >=60 mL/min/1.73 m 2 [facility] Glucose [Mass/Vol] 190 mg/dL High 74 - 106 mg/dL [facility] Interpretation and review of laboratory results Abnormal [facility] Potassium [Moles/Vol] 4.1 mmol/L 3.5 - 5.1 mmol/L [facility] Sodium [Moles/Vol] 139 mmol/L 136 - 145 mmol/L [facility] TBH EGFR-NON AF HAITIAN 30 Low >=60 mL/min/1.73 m 2 [facility] Urea nitrogen [Mass/Vol] 26 mg/dL High 7.0 - 18.0 mg/dL [facility] Urea nitrogen/Creatinine [Mass ratio] 15.9 mg/mg [facility] 36on 06-30-2024 36 Regarding CXR result from 06/23/2024: MD Mariaa Fernandes MA There is a rib fracture and possible lung infiltrates. Please ask that Dr León follows up on this. Spoke with patient and informed her I'd be faxed over the CXR to PCP. She will keep her apt with Dr. Nova on 07/25/2024. Normal [facility] 36on 06-25-2024 36 Regarding lab result s from 06/23/2024: MD Mariaa Fernandes MA Please have her change digoxin to every other day and spironolactone to half tablet daily. Obtain a follow-up BMP and digoxin level in 1 month. Patient informed. Lab orders mailed to her home. Awaiting CXR results. Normal [facility] ALL CBC WITH AUTO DIFFon BASOPHILS ABSOLUTE AUTO 0.1 [facility] Basophils/100 WBC (Bld) 0.6 % 0.2 - 2.0 % [facility] Eosinophils/100 WBC (Bld) 2.2 % 0.9 - 7.0 % [facility] Erythrocyte distribution width (RBC) [Ratio] 14.6 % 11.0 - 15.0 % [facility] Hematocrit (Bld) [Volume fraction] 37.4 % 36.0 - 48.0 % [facility] Hemoglobin (Bld) [Mass/Vol] 11.3 g/dL Low 12.0 - 16.0 g/dL [facility] IMMATURE GRANULOCYTES ABS AUTO 0.03 [facility] Immature granulocytes/100 WBC (Bld) 0.3 % 0.0 - 0.5 % [facility] Interpretation and review of laboratory results Abnormal [facility] LYMPHOCYTES ABSOLUTE AUTO 0.8 Low [facility] Lymphocytes/100 WBC (Bld) 7.9 % Low 20.5 - 60.0 % [facility] MCH (RBC) [Entitic mass] 28.6 pg 26.7 - 34.0 pg [facility] MCHC (RBC) [Mass/Vol] 30.2 g/dL 29.9 - 35.2 g/dL [facility] MCV (RBC) [Entitic vol] 94.7 fL 81.0 - 99.0 fL [facility] MONOCYTES ABSOLUTE AUTO 0.8 [facility] Monocytes/100 WBC (Bld) 8.9 % 1.7 - 12.0 % [facility] NEUTROPHILS ABSOLUTE AUTO 7.6 High [facility] Neutrophils/100 WBC (Bld) 80.1 % High 43.0 - 75.0 % [facility] Platelet mean volume (Bld) [Entitic vol] 9.5 fL 9.5 - 13.5 fL [facility] TBH EO # 0.2 [facility] TBH PLT 314 [facility] TB RBC 3.95 Low [facility] TB WBC 9.5 [facility] Healthcare Office Visiton 06-23-2024 Follow-up visit [id number] Jenni Quinones 1940 F Date Provider Department Center 06/23/2024 JOSEFINA STIEN SYMONE Veliz [facility] Family History Problem Relation Age of Onset Diabetes Father Heart failure Father Other Other Family Status - Relation Status Age at Father Other Level of Service:63855 [place] OFFICE/OUTPATIENT ESTABLISHED MOD MDM 30 MIN Normal [facility] 30on 06-11-2024 30 Daily Case Managemen t Update Multidisciplinary rounds have been completed. Barriers to Discharge: 06/11- POD 1 Underwent Successful [id number] transcatheter aortic valve replacement. 3 L NC, small hematoma on chest- stable. Echocardiogram reviewed showing trivial insufficiency. Valve is functioning well. Discharge now in/ appt scheduled. Diet: Dietary Orders (From admission, onward) Start Ordered 06/10/241758 Special Kitchen Request Once Comments: Hot roast beef sandwich with mashed potatoes and gravy. Iced tea 06/10/241759 06/03/24 1658 Regular Diet Heart Healthy/HTN, CABG,Stroke, (2gNA, low fat, low cholesterol) Diet effective now Question Answer Comment Room Service? Yes Fat restriction: Heart Healthy/HTN, CABG,Stroke, (2gNA, low fat, low cholesterol) 06/10/24 1657 Physician Expected Discharge Date: 06/11/2024 Discharge Delays: PT Six Click Score: 15 OT Six Click Score: PT Recommendations: OT Recommendations: New Consults: Normal [facility] BASIC METABOLIC PANELon 12-0 Anion gap [Moles/Vol] 12 mmol/L Normal 7-20 [facility] Comment on above: Performed By: #### L [id number] #### [facility] ([facility]) [address] [place] [address] Calcium [Mass/Vol] 8.5 mg/dL Low 8.6-10.3 [facility] Comment on above: Performed By: #### L [id number] #### [facility] (BEAKER) [address] [place] [address] Chloride [Moles/Vol] 104 mmol/L Normal 98-107 [facility] Comment on above: Performed By: #### L [id number] #### [facility] (BEAK[facility]) [address] [place] [address] CO2 [Moles/Vol] 24 mmol/L Normal 21-31 [facility] Comment on above: Performed By: #### L [id number] #### [facility] ([facility]) [address] [place] [address] Creatinine [Mass/Vol] 1.68 mg/dL High 0.60-1.20 [facility] Comment on above: Performed By: #### L [id number] #### [facility] (BE[facility]) [address] [place] [address] GLOMERULAR FILTRATION RATE ML/MIN/1.73 SQ M.PREDICTED 29.6 mL/min/1.73m*2 Low >60.0 [facility] Comment on above: Result Comment: The [facility]???s estimated glomerular filtration rate (eGFR) will no [...] individuals. Performed By: #### L [id number] #### [facility] ([facility]) [address] [place] [address] Glucose [Mass/Vol] 119 mg/dL High 70-100 [facility] Comment on above: Performed By: #### L [id number] #### [facility] ([facility]) [address] [place] [address] Potassium [Moles/Vol] 3.7 mmol/L Normal 3.5-5.1 [facility] Comment on above: Performed By: #### L [id number] #### [facility] [address] [place] [address] Sodium [Moles/Vol] 136 mmol/L Normal 136-145 [facility] Comment on above: Performed By: #### L [id number] #### [facility] [address] [place] [address] Urea nitrogen [Mass/Vol] 38 mg/dL High 7-25 [facility] Comment on above: Performed By: #### L [id number] #### [facility] ([facility]) [address] [place] [address] UREA NITROGEN/CREATININE (MASS RATIO) IN SER/PLAS 22.6 Normal [facility] Comment on above: Performed By: #### L [id number] #### [facility] ([facility]) [address] [place] [address] CBCon 06-11-2024 Erythrocyte distribution width (RBC) [Ratio] 14.9 % Normal 11.5-15.0 [facility] Comment on above: Performed By: #### L [id number] #### [facility] ([facility]) [address] [place] [address] ERYTHROCYTE MEAN CORPUSCULAR HEMOGLOBIN CONCENTRATION (G/DL) BY AUTOMATED 30.2 g/dL Low 32.0-35.0 [facility] Comment on above: Performed By: #### L [id number] #### [facility] ([facility]) [address] [place] [address] Hematocrit (Bld) [Volume fraction] 30.8 % Low 36.0-48.0 [facility] Comment on above: Performed By: #### L [id number] #### [facility] ([facility]) [address] [place] [address] Hemoglobin (Bld) [Mass/Vol] 9.3 g/dL Low 12.0-15.0 [facility] Comment on above: Performed By: #### L [id number] #### [facility] ([facility]) [address] [place] [address] MCH (RBC) [Entitic mass] 29.0 pg Normal 27.0-33.0 [facility] Comment on above: Performed By: #### L [id number] #### [facility] ([facility]) [address] [place] [address] MCV (RBC) [Entitic vol] 96.0 fL Normal 82.0-98.0 [facility] Comment on above: Performed By: #### L [id number] #### [facility] ([facility]) [address] [place] [address] PLATELETS (10*3/UL) IN BLOOD AUTOMATED COUNT 221 10*3/uL Normal 150-400 [facility] Comment on above: Performed By: #### L [id number] #### [facility] [address] [place] [address] RBC (Bld) [#/Vol] 3.21 10*6/uL Low 3.80-5.00 [facility] Comment on above: Performed By: #### L [id number] #### [facility] (BEAKER) [address] [place] [address] WBC (Bld) [#/Vol] 8.78 10*3/uL Normal 4.00-10.60 [facility] Comment on above: Performed By: #### L [id number] #### [facility] (MESERET[facility]) [address] [place] [address] DSon 06-11-2024 DS ----- ----- Attestation with [...] Your Medications These medications were sent to [id number] - [place], [place] - [address] [facility] [address] [place] [address] clopidogrel 75 mg tablet Activity Normal activity [...] She has history of prior admissions to [facility] with AF/RVR and diastolic heart failure [...] tenderness. Abdo (more content not included)... Normal [facility] MAGNESIUMon 06-11-2024 Magnesium [Mass/Vol] 2.3 mg/dL Normal 1.9-2.7 [facility] Comment on above: Performed By: #### L [id number] #### [facility] ([facility]) [address] [place] [address] POCT GLUCOSE METER UNSOLICIT ED RESULTSon 06-11-2024 Glucose [Mass/Vol] 121 mg/dL High 70-105 [facility] Comment on above: Order Comment: Waive d Testing in the ED is performed under the ED CLIA certificate #[id number]. Result Comment: vmel [email or web address] Performed By: #### L [id number] ####[facility] (BEAKER)[address] [place] [address] BASIC METABOLIC PANELon 12-0 Anion gap [Moles/Vol] 11 mmol/L Normal 7-20 [facility] Comment on above: Performed By: #### L [id number] ####[facility] ([facility])[address] [place] [address] Calcium [Mass/Vol] 8.5 mg/dL Low 8.6-10.3 [facility] Comment on above: Performed By: #### L [id number] ####[facility] [place] [address] Chloride [Moles/Vol] 103 mmol/L Normal 98-107 [facility] Comment on above: Performed By: #### L [id number] ####[facility] [place] [address] CO2 [Moles/Vol] 26 mmol/L Normal 21-31 [facility] Comment on above: Performed By: #### L [id number] ####[facility] [place] [address] Creatinine [Mass/Vol] 1.68 mg/dL High 0.60-1.20 [facility] Comment on above: Performed By: #### L [id number] ####[facility] [place] [address] GLOMERULAR FILTRATION RATE ML/MIN/1.73 SQ M.PREDICTED 29.6 mL/min/1.73m*2 Low >60.0 [facility] Comment on above: Result Comment: [facility]???s estimated glomerular filtration rate (eGFR) will no [...] of individuals. Performed By: #### L [id number] ####[facility] ([facility]ER)[address] [place] [address] Glucose [Mass/Vol] 107 mg/dL High 70-100 [facility] Comment on above: Performed By: #### L [id number] ####[facility] (BE[facility]ER)[address] [place] [address] Potassium [Moles/Vol] 3.9 mmol/L Normal 3.5-5.1 [facility] Comment on above: Performed By: #### L [id number] ####[facility] (BE[facility]ER)[address] [place] [address] Sodium [Moles/Vol] 136 mmol/L Normal 136-145 [facility] Comment on above: Performed By: #### L [id number] ####[facility] (BEAKER)[address] [place] [address] Urea nitrogen [Mass/Vol] 41 mg/dL High 7-25 [facility] Comment on above: Performed By: #### L [id number] ####[facility] (BE[facility]ER)[address] [place] [address] UREA NITROGEN/CREATININE (MASS RATIO) IN SER/PLAS 24.4 Normal [facility] Comment on above: Performed By: #### L [id number] ####[facility] ([facility]ER)[address] [place] [address] CONSULTon 06-10-2024 CONSULT Surgical Intensive C are [...] She has history of prior admissions to [facility] with AF/RVR and diastolic heart failure [...] drugs. Family History: pulled available information in [facility] from previous visits Family History Problem Relation [...] femoral/radial/DP pulses (more content not included)... Normal [facility] HPon 06-10-2024 HP H&P reviewed. The pa marilyn was examined and there are no changes to the H&P. Normal [facility] NURSNOTEon 06-10-2024 NURSNOTE Report given to [facility] [...] coming up to the floor soon. Normal [facility] NURSNOTE CHG wipes and betadi ne nasal swabs completed. Normal [facility] POCT GLUCOSE METER UNSOLICIT ED RESULTSon 06-10-2024 Glucose [Mass/Vol] 170 mg/dL High 70-105 [facility] Comment on above: Order Comment: Waive d Testing in the ED is performed under the ED CLIA certificate #[id number]. Result Comment: [email or web address] Performed By: #### L [id number] #### [facility] ([facility]ER) [address] [place] [address] Glucose [Mass/Vol] 124 mg/dL High 70-105 [facility] Comment on above: Order Comment: Waive d Testing in the ED is performed under the ED CLIA certificate #[id number]. Result Comment: asko rigoberto Performed By: #### L [id number] ####[facility] ([facility]ER)[address] [place] [address] TYPE AND SCREENon 06-10-2024 AB SCREEN Negative Normal [facility] Comment on above: Performed By: #### L [id number] #### [facility] , ABO group Nom (Bld) A Normal [facility] Comment on above: Performed By: #### L [id number] #### [facility] , RH TYPE IN BLOOD Negative Normal [facility] Comment on above: Performed By: #### L [id number] #### [facility] , Telephoneon 06-03-2024 Telephone [id number] Jenni Quinones 1940 F Date Provider Department Center 06/03/2024 [id number] TONEY [facility] Family History Problem Relation Age of Onset Diabetes Father Heart failure Father Other Other Family Status - Relation Status Age at Father Other Reason for Visit and Comments: Dental clearance reminder [Other] Normal [facility]CF CMP (CMP) (FOR REMOTE FH C USE)on 06-02-2024 Albumin [Mass/Vol] 3.1 g/dL Low 3.4 - 5.0 g/dL [facility] ALBUMIN GLOBULIN RATIO 0.6 [facility] ALP [Catalytic activity/Vol] 109 U/L 46 - 116 U/L [facility] Healthcare ALT [Catalytic activity/Vol] 9 U/L Low 14 - 59 U/L [facility] Healthcare Anion gap [Moles/Vol] 15.4 mmol/L [facility] Healthcare AST [Catalytic activity/Vol] 12 U/L Low 15 - 37 U/L [facility] Bilirubin [Mass/Vol] 0.7 mg/dL 0.2 - 1 .0 mg/dL [facility] Healthcare Calcium [Mass/Vol] 9.7 mg/dL 8.5 - 10. 1 mg/dL [facility] Healthcare Chloride [Moles/Vol] 100 mmol/L 98 - 10 7 mmol/L [facility] Healthcare CO2 [Moles/Vol] 28.9 mmol/L 21.0 - 32.0 mmol/L [facility] Healthcare Creatinine [Mass/Vol] 1.99 mg/dL High 0.55 - 1.02 mg/dL [facility] GFR/1.73 sq M.predicted CKD-EPI (S/P/Bld) [Vol rate/Area] 29 Low >=60 mL/min/1.73 m 2 [facility] Globulin (S) [Mass/Vol] 5.5 g/dL [facility] Glucose [Mass/Vol] 95 mg/dL 74 - 106 mg/dL [facility] Interpretation and review of laboratory results Abnormal [facility] Potassium [Moles/Vol] 4.3 mmol/L 3.5 - 5.1 mmol/L [facility] Protein [Mass/Vol] 8.6 g/dL High 6.4 - 8.2 g/dL [facility] Sodium [Moles/Vol] 140 mmol/L 136 - 145 mmol/L [facility] TBH EGFR-NON AF HAITIAN 24 Low >=60 mL/min/1.73 m 2 [facility] Urea nitrogen [Mass/Vol] 34 mg/dL High 7.0 - 18.0 mg/dL [facility] Urea nitrogen/Creatinine [Mass ratio] 17.1 mg/mg [facility] HPon 06-02-[address] [facility] Cardiology [facility] Subjective Jenni Quinones is a 84 y.o. year old female patient being seen to discuss TAVR. Patient Active Problem List Diagnosis Anemia Diastolic heart failure ([facility]/H[facility]) Dyspnea Hyperlipemia Mitral and aortic incompetence Atrial fibrillation with rapid ventricular response ([facility]) Abnormal gait Abnormal laboratory test result Acquired hypothyroidism Acute on chronic systolic heart failure ([facility]/HCC) Allergic rhinitis due to pollen Aortic valve disorder Asthma Chronic obstructive pulmonary disease ([facility]/HCC) Diabetic renal disease ([facility]/HCC) Difficulty walking Diverticulosis of colon Drug-induced constipation History of iron deficiency Heart valve transplanted Hyperthyroidism prison current use of anticoagulant therapy Mixed anxiety and depressive disorder Muscle weakness Obesity Obstructive sleep apnea syndrome Osteoarthritis of knee Osteopenia Peripheral vascular disease ([facility]/HCC) Primary localized osteoarthrosis of ankle and foot [...] Controlled diabetes mellitus type II without complication ([facility]/HCC) Atrial flutter (CMS/HCC) Benign essential hypertension Pulmonary [...] She has history of prior admissions to [facility] with AF/RVR and diastolic heart failure [...] artery disease (more content not included)... Normal [facility] Office Visiton 06-02-2024 Follow-up visit [id number] Jenni Quinones 1940 F Date Provider Department Center 06/02/2024 [place]-JOSEFINA NOVA SYMONE [facility] Family History Problem Relation Age of Onset Diabetes Father Heart failure Father Other Other Family Status - Relation Status Age at Father Other Level of Service:94878 [place] OFFICE/OUTPATIENT ESTABLISHED HIGH MDM 40 MIN Normal [facility] Orders Onlyon 05-30-2024 Orders Only [id number] Jenni Quinones 1940 F Date Provider Department Center 05/30/2024 HOMA ESTRELLA Judah CARD [facility] Family History Problem Relation Age of Onset Diabetes Father Heart failure Father Other Other Family Status - Relation Status Age at Father Other Normal [facility] CTA ABDOMEN PELVIS W IV CONT [facility] 05-29-2024 CTA ABDOMEN PELVIS W IV CONTRAST [...] signed: Meena Lopes. Yaneth Invalid Interpretation Code [facility] CTA CHEST W IV CONTRASTon CTA CHEST [...] signed: Meena Lopes. Yaneth Invalid Interpretation Code [facility] Comment on above: Order Comment: Low d ose contrast (40 ml) Consulton 05-29-2024 Consult [id number] Jenni Quinones 1940 F Date Provider Department Center 05/29/202499619-[id number] BRAUN HVCTS [place] [facility] Family History Problem Relation Age of Onset Diabetes Father Heart failure Father Other Other Family Status - Relation Status Age at Father Other Level of Service:69934 [place] OFFICE/OP CONSLTJ NEW/EST PT HIGH MDM 55 MINUTES Reason for Visit and Comments: New Patient [632] - TAVR [facility] HPon 05-27-2024 H&P reviewed. The zoey sanders was [...] wishes to proceed. Kisha Durand MD PGY-6 Asset Coordinator [facility] ----- ----- Attestation signed by Pnakaj Todd MD at 05/27/2024 11:30 AM I personally saw and examined the patient on the same date of service as resident/fellow Dr ospina. I discussed the findings and therapeutic plan with the resident/fellow Dr ospina. I agree with the documentation, except for any edits/updates below. Teaching Physician's Revisions: None Pankaj Todd MD, [facility] ----- H&P reviewed. The patient was examined and there are no changes to the H&P. The procedure was explained to the patient. The risks and benefits of the procedure were explained to the patient who showed understanding and with full capacity elected to proceed with the procedure. All questions were addressed and answered. Yanet Ospina MD Asset Coordinator - PGY6 [facility] NURSNOTEon 05-27-2024 NURSNOTE RN educated pt on [...] all of belongings. [facility] NURSNOTE Bedside swallow stud y completed and passed. [facility] Orders Onlyon 05-27-2024 Orders Only [id number] Jenni Quinones 1940 F Date Provider Department Center 05/27/2024 [facility] CARD [facility] HeartVAS Family History Problem Relation Age of Onset Diabetes Father Heart failure Father Other Other Family Status - Relation Status Age at Father Other [facility] ALL BASIC METABOLIC PANELon 05-26-2024 Anion gap [Moles/Vol] 11.9 mmol/L NO [facility] Calcium [Mass/Vol] 9.4 mg/dL 8.5 - 10. 1 mg/dL [facility] Chloride [Moles/Vol] 98 mmol/L 98 - 10 7 mmol/L [facility] CO2 [Moles/Vol] 34.2 mmol/L High 21.0 - 32.0 mmol/L [facility] Creatinine [Mass/Vol] 1.89 mg/dL High 0.55 - 1.02 mg/dL [facility] GFR/1.73 sq M.predicted CKD-EPI (S/P/Bld) [Vol rate/Area] 31 Low >=60 mL/min/1.73 m 2 [facility] Glucose [Mass/Vol] 106 mg/dL 74 - 106 mg/dL [facility] Interpretation and review of laboratory results Abnormal [facility] Potassium [Moles/Vol] 4.1 mmol/L 3.5 - 5.1 mmol/L [facility] Sodium [Moles/Vol] 140 mmol/L 136 - 145 mmol/L [facility] EGFR-NON AF HAITIAN 25 Low >=60 mL/min/1.73 m 2 [facility] Urea nitrogen [Mass/Vol] 38 mg/dL High 7.0 - 18.0 mg/dL [facility] Urea nitrogen/Creatinine [Mass ratio] 20.1 mg/mg [facility] ALL CBC WITH AUTO DIFFon BASOPHILS ABSOLUTE AUTO 0.1 [facility] Basophils/100 WBC (Bld) 0.7 % 0.2 - 2.0 % [facility] Eosinophils/100 WBC (Bld) 2.4 % 0.9 - 7.0 % [facility] Erythrocyte distribution width (RBC) [Ratio] 16 % High 11.0 - 15.0 % [facility] Hematocrit (Bld) [Volume fraction] 37.4 % 36.0 - 48.0 % [facility] Hemoglobin (Bld) [Mass/Vol] 11.4 g/dL Low 12.0 - 16.0 g/dL [facility] IMMATURE GRANULOCYTES ABS AUTO 0.03 [facility] Immature granulocytes/100 WBC (Bld) 0.3 % 0.0 - 0.5 % [facility] Interpretation and review of laboratory results Abnormal [facility] LYMPHOCYTES ABSOLUTE AUTO 0.8 Low [facility] Lymphocytes/100 WBC (Bld) 7.3 % Low 20.5 - 60.0 % [facility] MCH (RBC) [Entitic mass] 29.3 pg 26.7 - 34.0 pg [facility] MCHC (RBC) [Mass/Vol] 30.5 g/dL 29.9 - 35.2 g/dL [facility] MCV (RBC) [Entitic vol] 96.1 fL 81.0 - 99.0 fL [facility] MONOCYTES ABSOLUTE AUTO 1.1 High [facility] Monocytes/100 WBC (Bld) 10.3 % 1.7 - 12.0 % [facility] NEUTROPHILS ABSOLUTE AUTO 8.4 High [facility] Neutrophils/100 WBC (Bld) 79 % High 43.0 - 75.0 % [facility] Platelet mean volume (Bld) [Entitic vol] 9.6 fL 9.5 - 13.5 fL [facility] EO # 0.3 [facility] Healthcare TB PLT 273 [facility] Healthcare TB RBC 3.89 Low [facility] Healthcare [facility] WBC 10.7 [facility] Healthcare Orders Onlyon 05-23-2024 Orders Only [id number] Jenni Quinones 1940 F Date Provider Department [place] 05/23/2024 CHAYO TRAN [facility] VASC LAB [facility] Heart[facility]AS Family History Problem Relation Age of Onset Diabetes Father Heart failure Father Other Other Family Status - Relation Status Age at Father Other Normal [facility] HPon 05-13-2024 Cardiovascular Medic [facility] SUBJECTIVE Chief Complaint Patient presents with Valve [...] c/o chest pain. She was transferred to [facility] for further cardiac care. She underwent [...] Type 2 diabetes mellitus with peripheral angiopathy ([facility]) Controlled diabetes mellitus type II without complication ([facility]) Atrial flutter ([facility]) Benign essential hypertension Pulmonary hypertension ([facility]) Nontoxic single thyroid nodule Unsteadiness on feet [...] trifecta tissue valve: 2016 Arrhythmia Atrial fibrillation ([facility]) Bradycardia CHF (congestive heart failure) ([facility]) Heart valve disease Hyperlipidemia Hypertension Sleep apnea [...] Rfl: 0 (more content not included)... Normal [facility] Office Visiton 05-13-2024 Follow-up visit [id number] Jenni Quinones 1940 F Date Provider Department Center 05/13/2024 BRENT PÉREZ Family History Problem Relation Age of Onset Diabetes Father Heart failure Father Other Other Family Status - Relation Status Age at Father Other Level of Service:81725 [place] OFFICE/OUTPATIENT ESTABLISHED HIGH [facility] 40 MIN Reason for Visit and Comments: Valve Disorder [3372] Congestive Heart Failure [127] Normal [facility] STR cardiac stress/lexiscano n 04-27-2024 STR cardiac stress/lexiscan [facility] [place] [address] Cardiac Stress Test Signed Patient: Jenni Quinones MR#: [id number] 0 : 1940 Acct:[id number] Age/Sex: 84 / F ADM Date: 04/25/24 Loc: Room: [address] [place] [address] Type: DIS IN Attending Dr: Javan Gruber [...] By: NTS 04/28/24 1507 Dictated By: Palmira Loewry MD, [facility] 04/27/24 1606 Signed By: 05/01/24 1218 Normal [facility] A1C with Estimated Average G jaylin 04-25-2024 Glucose [Mass/Vol] 171 mg/dL Normal [facility] Comment on above: Result Comment: PERF ORMED BY: [place] [address] PATHOLOGIST NEWS GATHERING TECHNICIAN ALVARO LEWIS M.D. Performed By: #### M G, LIPID, A1C WT eA, BMP, HEPATIC #### [facility] [address] [place] [address] [facility] Activated partial thrombopla stin time (aPTT) in platelet poor plasma by coagulation aOrdered By: Lalo Carter on 04-25-2024 aPTT Coag (PPP) [Time] 30.0 s 25.1-36.5 [facility] Comment on above: A hematocrit value g reater than 55% may lead to inaccurate results in coagulation testing. Patients having hematocrit values >55% require a special collection tube for coagulation studies. Please contact the laboratory at [phone] for redraw instructions. Alanine aminotransferase [En zymatic activity/volume] in Serum or PlasmaOrdered By: Lalo Carter on 04-25-2024 ALT [Catalytic activity/Vol] 7 U/L Normal 7-52 [facility] Comment on above: Order Comment: FASTI NG Y Performed By: #### M G, LIPID, A1C WTH eA, BMP, HEPATIC #### [facility] [address] [place] [address] [place] Albumin [Mass/volume] in Ser um or Plasma by Bromocresol green (BCG) dye binding methoOrdered By: Lalo Caretr on 04-25-2024 Albumin BCG dye [Mass/Vol] 3.1 g/dL Low 3.5-5.7 [facility] Alkaline phosphatase [Enzyma tic activity/volume] in Serum or PlasmaOrdered By: Lalo Carter on 04-25-2024 ALP [Catalytic activity/Vol] 78 U/L Normal 34-104 [facility] Comment on above: Order Comment: FASTI NG Y Performed By: #### M G, LIPID, A1C WTH eA, BMP, HEPATIC #### [facility] [address] Aspartate aminotransferase [ Enzymatic activity/volume] in Serum or PlasmaOrdered By: Lalo Carter on 04-25-2024 AST [Catalytic activity/Vol] 13 U/L Normal 13-39 [facility] Comment on above: Order Comment: FASTI NG Y Performed By: #### M G, LIPID, A1C WTH eA, BMP, HEPATIC #### [address] Automated basophil %Ordered By: Lalo Carter on 04-25-2024 Basophils/100 WBC (Bld) 0.8 % Normal . [facility] Comment on above: Performed By: #### M G, LIPID, A1C WTH eA, BMP, HEPATIC #### [address] Automated basophil countOrde red By: Lalo Carter on 04-25-2024 Basophils (Bld) [#/Vol] 0.1 10*3/uL Normal 0.0-0.2 [facility] Comment on above: Result Comment: PERF ORMED BY: [place] [address] PATHOLOGIST NEWS GATHERING TECHNICIAN ALVARO LEWIS M.D. Performed By: #### M G, LIPID, A1C WTH eA, BMP, HEPATIC #### [address] Automated blood monocyte cou ntOrdered By: Lalo Carter on 04-25-2024 Monocytes (Bld) [#/Vol] 0.8 10*3/uL Normal 0.0-0.8 [facility] Comment on above: Performed By: #### M G, LIPID, A1C WTH eA, BMP, HEPATIC #### [facility] [address] Automated eosinophil %Ordere d By: Lalo Carter on 04-25-2024 Eosinophils/100 WBC (Bld) 2.9 % Normal . [facility] Comment on above: Performed By: #### M G, LIPID, A1C WTH eA, BMP, HEPATIC #### [facility] [address] Automated eosinophil countOr dered By: Lalo Carter on 04-25-2024 Eosinophils (Bld) [#/Vol] 0.3 10*3/uL Normal 0.0-0.45 [facility] Comment on above: Performed By: #### M G, LIPID, A1C WTH eA, BMP, HEPATIC #### [facility] [address] [place] [address] Automated monocyte %Ordered By: Lalo Carter on 04-25-2024 Monocytes/100 WBC (Bld) 8.7 % Normal . [facility] Comment on above: Performed By: #### M G, LIPID, A1C WTH eA, BMP, HEPATIC #### [facility] [address] [place] [address] Automated neutrophil %Ordere d By: Lalo Carter on 04-25-2024 Neutrophils/100 WBC (Bld) 79.6 % Normal . [facility] Comment on above: Performed By: #### M G, LIPID, A1C WTH eA, BMP, HEPATIC #### [facility] [address] Basic Metabolic Panelon 04-08 Creatinine Clr Calc Pharmacy 32.54 Normal [facility] Comment on above: Order Comment: FASTI NG Y Performed By: #### M G, LIPID, A1C WTH eA, BMP, HEPATIC #### [facility] [address] GFR/1.73 sq M.predicted MDRD (S/P/Bld) [Vol rate/Area] 44.359 mL/min/{1.73_m2} Normal [facility] Comment on above: Order Comment: FASTI NG Y Performed By: #### M G, LIPID, A1C WTH eA, BMP, HEPATIC #### [facility] [address] Bilirubin.direct [Mass/volum e] in Serum or PlasmaOrdered By: Lalo Carter on 04-25-2024 Bilirubin.direct [Mass/Vol] 0.10 mg/dL 0.03-0.18 [facility] Bilirubin.total [Mass/volume ] in Serum or PlasmaOrdered By: Lalo Carter on 04-25-2024 Bilirubin [Mass/Vol] 0.5 mg/dL Normal 0.3-1.0 [facility] Comment on above: Order Comment: FASTI NG Y Performed By: #### M G, LIPID, A1C WTH eA, BMP, HEPATIC #### [place] [id number] [facility] CT angio chest PE protocolon 04-25-2024 CT angio chest PE protocol [facility] [place] [address] [place] [address] CT Scan Report Signed Patient: Jenni Quinones MR#: [id number] 0 : 1940 Acct:[id number] Age/Sex: 84 / F ADM Date: 04/25/24 Loc: Room: [address] [place] [address] Type: ADM IN Attending Dr: Lalo Carter [...] Rosina Levin M.D.04/25/2024 8:30 AM Dictation Location: [place] [address] Transcribed By: [facility] 04/25/24829 Dictated By: Rosina Levin MD 04/25/24805 Signed By: 04/25/24829 Normal [facility] Calcium [Mass/volume] in Ser um or PlasmaOrdered By: Lalo Carter on 04-25-2024 Calcium [Mass/Vol] 8.4 mg/dL Low 8.6-10.3 [facility] Comment on above: Order Comment: FASTI NG Y Performed By: #### M G, LIPID, A1C WTH eA, BMP, HEPATIC #### [facility] [address] [place] [address] [place] Capillary blood glucose mer urement by glucometer (mass/volume)Ordered By: Javan Gruber on 04-25-2024 Glucose [Mass/Vol] 108 mg/dL Normal [facility] Comment on above: Random Glucose Refer ence Range is dependent on time and content of last meal. Glucose of more than 200 mg/dL in a nonstressed, ambulatory subject supports the diagnosis of Diabetes Mellitus. Result Comment: Lawn om Glucose Reference Range is dependent on time and content of last meal. Glucose of more than 200 mg/dL in a nonstressed, ambulatory subject supports the diagnosis of Diabetes Mellitus. Performed By: #### M G, LIPID, A1C WTH eA, BMP, HEPATIC #### [facility] [address] [place] [address] [place] Carbon dioxide, total [Moles /volume] in Serum or PlasmaOrdered By: Lalo Carter on 04-25-2024 CO2 [Moles/Vol] 30.3 mmol/L Normal 21.0-31.0 [facility] Comment on above: Order Comment: FASTI NG Y Performed By: #### M G, LIPID, A1C WTH eA, BMP, HEPATIC #### [facility] [address] [place] [id number] [place] Chloride [Moles/volume] in S theresa or PlasmaOrdered By: Lalo Carter on 04-25-2024 Chloride [Moles/Vol] 102 mmol/L Normal 98-107 [facility] Comment on above: Order Comment: FASTI NG Y Performed By: #### M G, LIPID, A1C WTH eA, BMP, HEPATIC #### [facility] [address] [place] [id number] [place] Cholesterol [Mass/volume] in Serum or PlasmaOrdered By: Lalo Carter on 04-25-2024 Cholesterol [Mass/Vol] 88 mg/dL Low 140-200 [facility] Comment on above: Chol less than 200 m g/dl low riskChol 201-239 mg/dl borderline riskChol 240 mg/dl and greater high risk Order Comment: FASTI NG Y Result Comment: Chol less than 200 mg/dl low risk Chol 201-239 mg/dl borderline risk Chol 240 mg/dl and greater high risk Performed By: #### M G, LIPID, A1C WTH eA, BMP, HEPATIC #### [facility] [address] [place] [id number] [place] Cholesterol in LDL Calc [Mas s/Vol]Ordered By: Lalo Carter on 04-25-2024 Cholesterol in LDL [Mass/Vol] 36 mg/dL 0-100 [facility] Comment on above: LDL ATP III CLASSIFI CATIONLDL less than 100 mg/dL OptimalLDL 100-129 mg/dL Near or above optimalLDL 130-159 mg/dL Borderline highLDL 160-189 mg/dL HighLDL greater than 189 mg/dL Very high Cholesterol in VLDL Calc [Ma ss/Vol]Ordered By: Lalo Carter on 04-25-2024 Cholesterol in VLDL [Mass/Vol] 18 mg/dL [facility] Complete Blood Count Auto Di ffon 04-25-2024 Mean Corpuscular HGB Conc 32.8 g/dL Normal 32.0-35.0 [facility] Comment on above: Performed By: #### M G, LIPID, A1C WTH eA, BMP, HEPATIC #### [facility] [address] [place] [id number] [place] NRBC% 0.1 /100{WBC} Normal 0-0.5 [facility] Comment on above: Performed By: #### M G, LIPID, A1C WTH eA, BMP, HEPATIC #### [facility] [address] [place] [id number] [place] Creatinine [Mass/volume] in Serum or PlasmaOrdered By: Lalo Carter on 04-25-2024 Creatinine [Mass/Vol] 1.20 mg/dL Normal 0.60-1.20 [facility] Comment on above: Order Comment: FASTGinger GE Y Performed By: #### M G, LIPID, A1C WTH eA, BMP, HEPATIC #### [address] ECG 12 lead ECGon 04-25-2024 ECG 12 lead ECG [facility] [place] [address] Electrocardiograph Report Signed Patient: Jenni Quinones MR#: [id number] 0 : 1940 Acct:[id number] Age/Sex: 84 / F ADM Date: 04/25/24 Loc: Room: [address] [place] [address] Type: DIS IN Attending Dr: Javan Gruber [...] previous ECGs available Confirmed by SEBASTIÁN MOULTON [facility] [place] ([id number]) on 04/25/2024 5:26:27 PM Referred By: Electronically Signed By: [place] LOWERY MD [facility] Transcribed By: MUS Signed By Palmira Lowery MD, [facility] 04/25/24 1726 Normal [facility] ECH echo transthoracicon ECH echo transthoracic [facility] [place] [address] Echocardiogram Signed Patient: Jenni Quniones MR#: [id number] 0 : 1940 Acct:[id number] Age/Sex: 84 / F ADM Date: 04/25/24 Loc: Room: [address] [place] [address] Type: DIS IN Attending Dr: Javan Gruber MD Ordering Provider: Lalo Carter DO Date of Service: 04/25/24 ECH/ECH echo transthoracic: history of aortic insufficiency. Copies to: Palmira Lowery MD, FACC Lalo Carter DO Weight: 166 lb Performed [...] [place] (more content not included)... Normal [facility] Erythrocyte distribution wid th [Ratio] by Automated countOrdered By: Lalo Carter on 04-25-2024 Erythrocyte distribution width (RBC) [Ratio] 18.3 % High 11.9-15.3 [facility] Comment on above: Performed By: #### M G, LIPID, A1C [facility] eA, BMP, HEPATIC #### [facility] [address] [place] [address] [place] Erythrocytes [#/volume] in B lood by Automated countOrdered By: Lalo Carter on 04-25-2024 RBC (Bld) [#/Vol] 3.18 10*6/uL Low 3.60-5.00 [facility] Comment on above: Performed By: #### M G, LIPID, A1C WTH eA, BMP, HEPATIC #### [facility] [address] Glucose Poct Glucometerson 1 Commemt1 Glu2: Cleaned Meter Normal [facility] Comment on above: Result Comment: PERF ORMED BY: [facility] [address] [place] [address] PATHOLOGIST NEWS GATHERING TECHNICIAN ALVARO LEWIS M.D. Performed By: #### M G, LIPID, A1C WTH eA, BMP, HEPATIC #### [facility] [address] [place] [address] [place] Glucose [Mass/volume] in Ser um or PlasmaOrdered By: Lalo Carter on 04-25-2024 Glucose [Mass/Vol] 121 mg/dL High 70-100 [facility] Comment on above: ADA recommended refe rence rangeRandom Glucose Reference Range is dependent on time and content of last meal. Glucose of more than 200 mg/dL in a nonstressed, ambulatory subject supports the diagnosis of Diabetes Mellitus. Order Comment: FASTI NG Y Result Comment: Lawn om Glucose Reference Range is dependent on time and content of last meal. Glucose of more than 200 mg/dL in a nonstressed, ambulatory subject supports the diagnosis of Diabetes Mellitus. ADA recommended reference range Performed By: #### M G, LIPID, A1C WTH eA, BMP, HEPATIC #### [facility] [address] [place] [address] [place] Glucose mean value [Mass/vol ume] in Blood Estimated from glycated hemoglobinOrdered By: Lalo Carter on 04-25-2024 Average glucose Estimated from glycated hemoglobin (Bld) [Mass/Vol] 171 mg/dL [facility] Hematocrit [Volume Fraction] of Blood by Automated countOrdered By: Lalo Carter on 04-25-2024 Hematocrit (Bld) [Volume fraction] 28.8 % Low 34.0-46.4 [facility] Comment on above: Performed By: #### M G, LIPID, A1C WTH eA, BMP, HEPATIC #### [facility] [address] Hemoglobin A1c percentageOrd ered By: Lalo Carter on 04-25-2024 HbA1c (Bld) [Mass fraction] 7.6 % High 4.3-5.6 [facility] Comment on above: Increased risk for d iabetes: 5.7 - 6.4diabetes: >6.4glycemic control for adults with diabetes: <7.0 Result Comment: Incr eased risk for diabetes: 5.7 - 6.4 diabetes: >6.4 glycemic control for adults with diabetes: <7.0 Performed By: #### M G, LIPID, A1C WTH eA, BMP, HEPATIC #### [facility] [address] Hemoglobin [Mass/volume] in BloodOrdered By: Lalo Carter on 04-25-2024 Hemoglobin (Bld) [Mass/Vol] 9.4 g/dL Low 11.8-15.4 [facility] Comment on above: Performed By: #### M G, LIPID, A1C WTH eA, BMP, HEPATIC #### [address] Hepatic Panelon 04-25-2024 Albumin [Mass/Vol] 3.1 g/dL Low 3.5-5.7 [facility] Comment on above: Order Comment: FASTI NG Y Performed By: #### M G, LIPID, A1C WTH eA, BMP, HEPATIC #### [address] Bilirubin,Indirect 0.4 mg/dL Normal [facility] Comment on above: Order Comment: FASTI NG Y Performed By: #### M G, LIPID, A1C WTH eA, BMP, HEPATIC #### [address] Bilirubin.indirect [Mass/Vol] 0.10 mg/dL Normal 0.03-0.18 [facility] Comment on above: Order Comment: FASTI NG Y Performed By: #### M G, LIPID, A1C WTH eA, BMP, HEPATIC #### [address] INR in Platelet poor plasma by Coagulation assayOrdered By: Lalo Carter on 04-25-2024 INR Coag (PPP) [Relative time] 1.1 {INR} Normal [facility] Comment on above: INR Therapeutic Rang e [...] LIPID, A1C WTH eA, BMP, HEPATIC #### [facility] [address] Leukocytes [#/volume] correc paige for nucleated erythrocytes in Blood by Automated counOrdered By: Lalo Carter on 04-25-2024 WBC corrected for nucl RBC Auto (Bld) [#/Vol] 8.9 10*3/uL 3.8-11.6 [facility] Leukocytes [#/volume] in Blo od by Automated countOrdered By: Lalo Carter on 04-25-2024 WBC (Bld) [#/Vol] 8.9 10*3/uL Normal 3.8-11.6 [facility] Comment on above: Performed By: #### M G, LIPID, A1C WTH eA, BMP, HEPATIC #### [facility] [address] Lipid Panelon 04-25-2024 LDL Cholesterol,Calculate d 36 mg/dL Normal 0-100 [facility] Comment on above: Order Comment: BETSEY Blackburn Result Comment: LDL ATP III CLASSIFICATION LDL less than 100 mg/dL Optimal LDL 100-129 mg/dL Near or above optimal LDL 130-159 mg/dL Borderline high LDL 160-189 mg/dL High LDL greater than 189 mg/dL Very high Performed By: #### M G, LIPID, A1C WTH eA, BMP, HEPATIC #### [facility] [address] Triglyceride w/Reflex 92 mg/dL Normal 0-149 [facility] Comment on above: Order Comment: BETSEY Blackburn Result Comment: TRIG ATP III CLASSIFICATION TRIG less than 150 mg/dL Normal TRIG 150-199 mg/dL Borderline high TRIG 200-500 mg/dL High TRIG greater than 500 mg/dL Very high Standard traceable to the Center for Disease Conrtrol and Prevention (CDC) test method. Performed By: #### M G, LIPID, A1C WTH eA, BMP, HEPATIC #### [facility] [address] VLDL CHOLESTEROL 18 mg/dL Normal [facility] Comment on above: Order Comment: BETSEY GE Y Performed By: #### M G, LIPID, A1C WTH eA, BMP, HEPATIC #### [address] Lymphocytes [#/volume] in Bl ood by Automated countOrdered By: Lalo Carter on 04-25-2024 Lymphocytes (Bld) [#/Vol] 0.7 10*3/uL Low 1.00-4.8 [facility] [facility] Comment on above: Performed By: #### M G, LIPID, A1C WTH eA, BMP, HEPATIC #### [facility] [address] [place] [address] [place] Lymphocytes/100 leukocytes i n Blood by Automated countOrdered By: Lalo Carter on 04-25-2024 Lymphocytes/100 WBC (Bld) 8.0 % Normal . [facility] Comment on above: Performed By: #### M G, LIPID, A1C WTH eA, BMP, HEPATIC #### [facility] [address] [place] [address] [place] MCH [Entitic mass] by Automa paige countOrdered By: Lalo Carter on 04-25-2024 MCH (RBC) [Entitic mass] 29.7 pg Normal 24.7-34.3 [facility] Comment on above: Performed By: #### M G, LIPID, A1C WTH eA, BMP, HEPATIC #### [facility] [address] MCHC Auto (RBC) [Mass/Vol]Or dered By: Lalo Carter on 04-25-2024 MCHC (RBC) [Mass/Vol] 32.8 g/dL 32.0-35.0 [facility] MCV [Entitic volume] by Auto mated countOrdered By: Lalo Carter on 04-25-2024 MCV (RBC) [Entitic vol] 90.6 fL Normal 80-100 [facility] Comment on above: Performed By: #### M G, LIPID, A1C WTH eA, BMP, HEPATIC #### [facility] [address] [place] [address] Magnesium [Mass/volume] in S theresa or PlasmaOrdered By: Lalo Carter on 04-25-2024 Magnesium [Mass/Vol] 2.1 mg/dL Normal 1.9-2.7 [facility] Comment on above: Order Comment: FASTI NG Y Performed By: #### M G, LIPID, A1C WTH eA, BMP, HEPATIC #### [facility] [address] [place] [address] [place] lissy perf SPECT rest stron 04-25-2024 NM lissy perf SPECT rest str [facility] [place] [address] Nuclear Medicine Report Signed Patient: Jenni Quinones MR#: [id number] 0 : 1940 Acct:[id number] Age/Sex: 84 / F ADM Date: 04/25/24 Loc: Room: [address] [place] [address] Type: DIS IN Attending Dr: Javan Gruber [...] KEATON 04/25/241952 Dictated By: Palmira Lowery MD, [facility] 04/25/24 1614 Signed By: 05/01/24 1218 Normal [facility] Neutrophils [#/volume] in Bl ood by Automated countOrdered By: Lalo Carter on 04-25-2024 Neutrophils (Bld) [#/Vol] 7.1 10*3/uL Normal 1.8-7.7 [facility] Comment on above: Performed By: #### M G, LIPID, A1C WTH eA, BMP, HEPATIC #### [facility] [address] [place] [address] No Panel InformationOrdered By: Javan Gruber on 04-25-2024 Bedside Glucose Comment Glu2: cleaned meter [facility] No Panel InformationOrdered By: Laol Carter on 04-25-2024 Estimated GFR (CKD-EPI) 44.359 mL/Min [facility] Creatinine Clearance (Chem 32.54 [facility] Nucleated erythrocytes [Pres ence] in Blood by Automated countOrdered By: Lalo Carter on 04-25-2024 Nucleated RBC Auto Ql (Bld) 0.1 /100{WBC} 0-0.5 [facility] Partial Thromboplastin Timeo n 04-25-2024 aPTT Coag (Bld) [Time] 30.0 s Normal 25.1-36.5 [facility] Comment on above: Result Comment: A he matocrit value greater than 55% may lead to inaccurate results in coagulation testing. Patients having hematocrit values >55% require a special collection tube for coagulation studies. Please contact the laboratory at [phone] for redraw instructions. PERFORMED BY: [place] [address] PATHOLOGIST NEWS GATHERING TECHNICIAN ALVARO LEWIS M.D. Performed By: #### M G, LIPID, A1C WTH eA, BMP, HEPATIC #### [place] [address] [place] Platelet mean volume [Entiti c volume] in Blood by Automated countOrdered By: Lalo Carter on 04-25-2024 Platelet mean volume (Bld) [Entitic vol] 8.0 fL Normal 6.3-10.7 [facility] Comment on above: Performed By: #### M G, LIPID, A1C WTH eA, BMP, HEPATIC #### [place] [address] [place] Platelets [#/volume] in Bloo d by Automated countOrdered By: Lalo Carter on 04-25-2024 Platelets (Bld) [#/Vol] 273 10*3/uL Normal 150-450 [facility] Comment on above: Performed By: #### M G, LIPID, A1C WTH eA, BMP, HEPATIC #### [place] [address] [place] Potassium [Moles/volume] in Serum or PlasmaOrdered By: Lalo Carter on 04-25-2024 Potassium [Moles/Vol] 5.2 mmol/L High 3.5-5.1 [facility] Comment on above: Order Comment: FASTI NG Y Performed By: #### M G, LIPID, A1C WTH eA, BMP, HEPATIC #### [place] [id number] [place] Protein [Mass/volume] in Ser um or PlasmaOrdered By: Lalo Carter on 04-25-2024 Protein [Mass/Vol] 6.4 g/dL Normal 6.4-8.9 [facility] Comment on above: Order Comment: FASTI NG Y Performed By: #### M G, LIPID, A1C WTH eA, BMP, HEPATIC #### [facility] [address] Prothrombin time (PT)Ordered By: Lalo Carter on 04-25-2024 PT Coag (PPP) [Time] 12.9 s Normal 9.0-12.9 [facility] Comment on above: A hematocrit value g reater than 55% may lead to inaccurate results in coagulation testing. Patients having hematocrit values >55% require a special collection tube for coagulation studies. Please contact the laboratory at [phone] for redraw instructions. Result Comment: A he matocrit value greater than 55% may lead to inaccurate results in coagulation testing. Patients having hematocrit values >55% require a special collection tube for coagulation studies. Please contact the laboratory at [phone] for redraw instructions. Performed By: #### M G, LIPID, A1C WTH eA, BMP, HEPATIC #### [facility] [address] Serum globulin measurement b y calculation (mass/volume)Ordered By: Lalo Carter on 04-25-2024 Globulin (S) [Mass/Vol] 3.3 g/dL [facility] Comment on above: Order Comment: FASTI NG Y Performed By: #### M G, LIPID, A1C WTH eA, BMP, HEPATIC #### [facility] [address] Serum or plasma albumin/glob ulin mass ratioOrdered By: Lalo Carter on 04-25-2024 Albumin/Globulin [Mass ratio] 0.9 {ratio} [facility] Comment on above: Order Comment: FASTI NG Y Performed By: #### M G, LIPID, A1C WTH eA, BMP, HEPATIC #### [address] Serum or plasma anion gap de terminationOrdered By: Lalo Carter on 04-25-2024 Anion gap [Moles/Vol] 10.9 mmol/L Normal 6.0-15.0 [facility] Comment on above: Order Comment: BETSEY Blackburn Performed By: #### M G, LIPID, A1C WTH eA, BMP, HEPATIC #### [facility] [address] Serum or plasma high density lipoprotein (HDL) cholesterol measurementOrdered By: Lalo Carter on 04-25-2024 Cholesterol in HDL [Mass/Vol] 34 mg/dL Normal 23-92 [facility] Comment on above: HDL CHOL ATP-III CLA SSIFICATION Cardiovascular RiskHDL > or equal to 60 mg/dL LOWHDL < 40 mg/dL HIGH Order Comment: BETSEY Blackburn Result Comment: HDL CHOL ATP-III CLASSIFICATION Cardiovascular Risk HDL > or equal to 60 mg/dL LOW HDL < 40 mg/dL HIGH Performed By: #### M G, LIPID, A1C WTH eA, BMP, HEPATIC #### [facility] [address] Serum or plasma non-glucuron idated bilirubin measurement (mass/volume)Ordered By: Lalo Carter on 04-25-2024 Bilirubin.indirect [Mass/Vol] 0.4 mg/dL [facility] Serum or plasma total choles terol/high density lipoprotein (HDL) cholesterol mass ratOrdered By: Lalo Carter on 04-25-2024 Cholesterol.total/Cho lesterol in HDL [Mass ratio] 2.6 {ratio} Normal <5.0 [facility] Comment on above: Order Comment: BETSEY Blackburn Result Comment: PERF ORMED BY: [facility] [address] [place] [address] PATHOLOGIST NEWS GATHERING TECHNICIAN ALVARO LEWIS M.D. Performed By: #### M G, LIPID, A1C WTH eA, BMP, HEPATIC #### [facility] [address] Sodium [Moles/volume] in Ser um or PlasmaOrdered By: Lalo Carter on 04-25-2024 Sodium [Moles/Vol] 138 mmol/L Normal 136-145 [facility] Comment on above: Order Comment: FASTI NG Y Performed By: #### M G, LIPID, A1C WTH eA, BMP, HEPATIC #### [facility] [address] Triglyceride [Mass/volume] i n Serum or PlasmaOrdered By: Lalo Carter on 04-25-2024 Triglyceride [Mass/Vol] 92 mg/dL 0-149 [facility] Comment on above: TRIG ATP III CLASSIF ICATIONTRIG less than 150 mg/dL NormalTRIG 150-199 mg/dL Borderline highTRIG 200-500 mg/dL High TRIG greater than 500 mg/dL Very highStandard traceable to the Center for Disease Conrtrol and Prevention (CDC) test method. Troponin I High Sensitivityo n 04-25-2024 Troponin I High Sensitivity 18.1 pg/mL High 0.0-15.0 [facility] Comment on above: Result Comment: PERF ORMED BY: [place] [address] PATHOLOGIST NEWS GATHERING TECHNICIAN ALVARO LEWIS M.D. Performed By: #### M G, LIPID, A1C WTH eA, BMP, HEPATIC #### [facility] [address] Troponin I High Sensitivity 19.5 pg/mL High 0.0-15.0 [facility] Comment on above: Result Comment: PERF ORMED BY: [address] [place] [address] PATHOLOGIST NEWS GATHERING TECHNICIAN ALVARO LEWIS M.D. Performed By: #### M G, LIPID, A1C WTH eA, BMP, HEPATIC #### [facility] [address] [place] [id number] [facility] Troponin I.cardiac [Mass/vol ume] in Serum or Plasma by Detection limit <= 0.01 ng/Ordered By: Lalo Carter on 04-25-2024 Troponin I.cardiac DL <= 0.01 ng/mL [Mass/Vol] 18.1 pg/mL High 0.0-15.0 [facility] Urea nitrogen [Mass/volume] in Serum or PlasmaOrdered By: Lalo Carter on 04-25-2024 Urea nitrogen [Mass/Vol] 31 mg/dL High 01-30 [facility] Comment on above: Order Comment: BETSEY Blackburn Performed By: #### M G, LIPID, A1C WTH eA, BMP, HEPATIC #### [facility] [address] [place] [id number] [facility] Office Visiton 01-07-2024 Follow-up visit [id number] Jenni Quinones 1940 F Date Provider Department Center 01/07/2024 JOSEFINA STEIN Family History Problem Relation Age of Onset Diabetes Father Heart failure Father Other Other Family Status - Relation Status Age at Father Other Level of Service:49143 [place] OFFICE/OUTPATIENT ESTABLISHED MOD MDM 30 MIN [facility] 37on 12-07-2023 37 Have blood drawn [...] normal or in recliner. Normal [facility] Office Visiton 12-07-2023 Follow-up visit [id number] Jenni Quinones 1940 F Date Provider Department Center 12/07/2023 FARZANEH PERSAUD Family History Problem Relation Age of Onset Diabetes Father Heart failure Father Other Other Family Status - Relation Status Age at Father Other Level of Service:[address]499 [place] OFFICE/OUTPATIENT ESTABLISHED MOD MDM 30 MIN [facility] 36on 11-16-2023 36 Regarding echo perfo rmed on 10/23/2023: MD Mariaa Fernandes MA; Farzaneh Arndt NP [place], she sees you soon, echo is consistent with volume overload, I could consider intensification of diuretics before determining the need for FARA [facility] XR COMPARISON OF OUTSIDE HIRAL MSon 08-07-2023 XR COMPARISON OF OUTSIDE FILMS RADRPT There is no result for this study. This is a placeholder for comparison films only. Final result Normal [facility] XR COMPARISON OF OUTSIDE HIRAL MSon 05-29-2023 XR COMPARISON OF OUTSIDE FILMS RADRPT There is no result for this study. This is a placeholder for comparison films only. Final result Normal [facility] FLUORO FOR SURGICAL PROCEDUR ESon 05-09-2023 FLUORO FOR SURGICAL PROCEDURES RADRPT Radiology exam is complete. No Radiologist dictation. Please follow up with ordering provider. Final result Normal [facility] SURGICALon 05-09-2023 SURGICAL [place] [facility] JENNI QUINONES [id number] Assoc. Page 1 of [address] [place] [address] PROC: 05/09/2023 [facility] RECV: 05/11/[address] RPTD: 05/16/2023 [place] [address] LOC: [facility]ar ACCT: [id number] SEX: F : 1940 AGE: 83 Y [...] negative. The CD138 demonstrates scattered plasma cells. [place] and lambda surface immunoglobulin light chain LALO is performed with adequate controls. The kappa and lambda stains demonstrate a polytypic plasma cell population. Overall, there is no evidence of an atypical infiltrate. Malignancy is not identified. *This test was developed and its performance characteristics determined by [facility]. It has not been cleared or approved by the U.S. Food and Drug Administration. Pursuant to the requirements of CLIA, this laboratory has established and verified the test's accuracy and precision. Additional information about this type of test is available upon request. [id number] [phone] [id number] [phone] [id number] INDY PLATT M.D., F.C.A.P. [facility]/ 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 Page 1 of 1\X0D0A\[address] \X0D0A\[place] [address]\X0D0A\ PROC: 05/09/2023\X0D0A\[facility] RECV: 05/11/2023\X0D0A\[address] RPTD: 05/16/2023\X0D0A\[place] [address]\X0D0A\ LOC: WYA\X0D0A\ ACCT: [id number] SEX: F\X0D0A\ : 1940 AGE: 83 Y\X0D0A\X0D0A\ [...] negative. The CD138 demonstrates scattered plasma cells. [place] and\X0D0A\lambda surface immunoglobulin light chain LALO is performed with\X0D0A\adequate controls. The kappa and lambda stains demonstrate a polytypic\X0D0A\plasma cell population. Overall, there is no evidence of an atypical\X0D0A\infiltrate. Malignancy is not identified.\X0D0A\X0D0A\*This test was developed and its performance characteristics determined\X0D0A\by [facility]. It has not been cleared or\X0D0A\approved by the U.S. Food and Drug Administration. Pursuant to the\X0D0A\requirements of CLIA, this laboratory has established and verified the\X0D0A\test's accuracy and precision. Additional information about this type\X0D0A\of test is available upon request.\X0D0A\X0D0A\30829\X0D0A\16629\X0D0A\28432 x 3\X0D0A\96349\X0D0A\13010\X0D0A\X0D0A\X0D0A\X0D0A\ \X0D0A\ INDY PLATT M.D., F.C.A.P.\X0D0A\X0D0A\X0D0A\[facility]/ [facility] Printed on: 05/16/2023\X0D0A\[address]\X0D0A\[place], [place] [address]\X0D0A\Original print date: 05/16/2023 Performed By: #### 1 [id number] #### [facility] See Report DIGOXINon 12-06-2022 DIG <0.2 Critically low 0.9-2.0 [facility] Comment on above: Performed By: #### B LDCX2 #### [facility] [address] [place], [place] [address] Dr. Lisa Martinez PROF CHEM 8 (BAS METB)on Anion gap [Moles/Vol] 9.6 mmol/L Normal [facility] Comment on above: Performed By: #### T SHRFT4, BMP ####[facility] [address] [place] [address]Dr. Lisa Martinez Calcium [Mass/Vol] 9.0 mg/dL Normal 8.5-10.1 [facility] Comment on above: Performed By: #### T ALFRED4, BMP ####[facility] [address] [place], [place] [address]Dr. Lisa Martinez Chloride [Moles/Vol] 103 mmol/L Normal 98-107 [facility] Comment on above: Performed By: #### T ALFRED4, BMP ####[facility] [address] [place], [place] [address]Dr. Lisa Martinez CO2 [Moles/Vol] 33.4 mmol/L Critically high 21.0-32.0 [facility] Comment on above: Performed By: #### T ALFRED4, BMP ####[facility] [address] [place], [place] [address]Dr. Lisa Martinez Creatinine [Mass/Vol] 1.69 mg/dL Critically high 0.55-1.02 [facility] Comment on above: Performed By: #### T ALFRED4, BMP ####[facility] [address] [place], [place] [address]Dr. Lisa Martinez EGFR-AF HAITIAN 35 mL/min/1.73m2 Critically low >=60 [facility] Comment on above: Performed By: #### T ALFRED4, BMP ####[facility] [address] [place], [place] [address]Dr. Lisa Martinez EGFR-NON AF HAITIAN 29 mL/min/1.73m2 Critically low >=60 [facility] Comment on above: Performed By: #### T ALFRED4, BMP ####[facility] [address] [place], [place] [address]Dr. Lisa Martinez Glucose [Mass/Vol] 72 mg/dL Critically low 74-106 [facility] Comment on above: Performed By: #### T SUPRIYAFT4, BMP ####[facility] [address] [place], [place] [address]Dr. Lisa Martinez Potassium [Moles/Vol] 4.0 mmol/L Normal 3.5-5.1 [facility] Comment on above: Performed By: #### T ALFRED4, BMP ####[facility] [address] [place] [address]DrIngrid Martinez Sodium [Moles/Vol] 142 mmol/L Normal 136-145 [facility] Comment on above: Performed By: #### T ALFRED4, BMP ####[facility] [address] [place] [address]Dr. Lisa Martinez Urea nitrogen [Mass/Vol] 42.0 mg/dL Critically high 7.0-18.0 [facility] Comment on above: Performed By: #### T ALFRED4, BMP ####[facility] [address] [place] [address]DrIngrid Martinez Urea nitrogen/Creatinine [Mass ratio] 24.9 mg/mg Normal [facility] Comment on above: Performed By: #### T ALFRED4, BMP ####[facility] [address] [place] [address]DrIngrid Martinez TSH W/ REFLEX TO FT4on 12-06 TSH 2.427 uIU/mL Normal 0.358-3.740 [facility] Comment on above: Performed By: #### T ALFRED4, BMP ####[facility] [address] [place] [address]DrIngrid Martinez BNPon 11-15-2022 Natriuretic peptide B (Bld) [Mass/Vol] 6134.0 pg/mL Critically high <=1,800.0 [facility] Comment on above: Performed By: #### B FURNACE COMBUSTION TESTER, CMP, MG ####[facility] [address] [place] [address]DrIngrid Martinez CBC AUTO DIFFon 11-15-2022 BASO # 0.0 103/ul Normal 0.0-0.1 [facility] Comment on above: Performed By: #### K U #### [facility] [address] [place] [address] [address] Lisa Martinez Basophils/100 WBC (Bld) 0.6 % Normal 0.2-2.0 [facility] Comment on above: Performed By: #### K U #### [facility] [address] [place] [address] Dr. Lisa Martinez EO # 0.2 103/ul Normal 0.0-0.7 [facility] Comment on above: Performed By: #### K U #### [facility] [address] [place] [address] Dr. Lsia Martinez Eosinophils/100 WBC (Bld) 2.9 % Normal 0.9-7.0 [facility] Comment on above: Performed By: #### K U #### [facility] [address] [place] [address] Dr. Lisa Martinez Erythrocyte distribution width (RBC) [Ratio] 14.9 % Normal 11.0-15.0 [facility] Comment on above: Performed By: #### K U #### [facility] [address] [place] [address] Dr. Lisa Martinez Hematocrit (Bld) [Volume fraction] 31.9 % Critically low 36.0-48.0 [facility] Comment on above: Performed By: #### K U #### [facility] [address] [place] [address] Dr. Lisa Martinez Hemoglobin (Bld) [Mass/Vol] 9.8 g/dL Critically low 12.0-16.0 [facility] Comment on above: Performed By: #### K U #### [facility] [address] [place] [address] Dr. Lisa Martinez IG # 0.02 10e3/ul Normal 0.00-0.03 [facility] Comment on above: Performed By: #### K U #### [facility] [address] [place] [address] Dr. Lisa Martinez IG % 0.3 % Normal 0.0-0.5 [facility] Comment on above: Performed By: #### K U #### [facility] [address] [place] [address] Dr. Lisa Martinez LYMPH # 0.7 103/ul Critically low 1.2-3.8 [facility] Comment on above: Performed By: #### K U #### [facility] [address] [place] [address] Dr. Lisa Martinez Lymphocytes/100 WBC (Bld) 10.9 % Critically low 20.5-60.0 [facility] Comment on above: Performed By: #### K U #### [facility] [address] [place] [address] Dr. Lisa Martinez MANUAL DIFF REQ NO Normal [facility] Comment on above: Performed By: #### K U #### [facility] [address] [place] [address] Dr. Lisa Martinez MCH (RBC) [Entitic mass] 29.1 pg Normal 26.7-34.0 [facility] Comment on above: Performed By: #### K U #### [facility] [address] [place] [address] Dr. Lisa Martinez MCHC (RBC) [Mass/Vol] 30.7 g/dL Normal 29.9-35.2 [facility] Comment on above: Performed By: #### K U #### [facility] [address] [place] [address] Dr. Lisa Martinez MCV (RBC) [Entitic vol] 94.7 fL Normal 81.0-99.0 [facility] Comment on above: Performed By: #### K U #### [facility] [address] [place] [address] Dr. Lisa Martinez MONO # 0.8 103/ul Normal 0.3-0.8 [facility] Comment on above: Performed By: #### K U #### [facility] [address] [place] [address] Dr. Lisa Martinez Monocytes/100 WBC (Bld) 12.2 % Critically high 1.7-12.0 [facility] Comment on above: Performed By: #### K U #### [facility] [address] [place] [address] Dr. Lisa Martinez NEUT # 4.6 103/ul Normal 1.4-6.5 [facility] Comment on above: Performed By: #### K U #### [facility] [address] [place] [address] [address] Lisa Martinez Neutrophils/100 WBC (Bld) 73.1 % Normal 43.0-75.0 [facility] Comment on above: Performed By: #### K U #### [facility] [address] [place] [address] [address] Lisa Martinez Platelet mean volume (Bld) [Entitic vol] 10.2 fL Normal 9.5-13.5 [facility] Comment on above: Performed By: #### K U #### [facility] [address] [place] [address] [address] Lisa Martinez PLT 186 103/ul Normal 150-450 [facility] Comment on above: Performed By: #### K U #### [facility] [address] [place] [address] Dr. Lisa Martinez RBC 3.37 106/ul Critically low 4.20-5.40 [facility] Comment on above: Performed By: #### K U #### [facility] [address] [place] [address] [address] Lisa Martinez WBC 6.3 103/ul Normal 4.0-11.0 [facility] Comment on above: Performed By: #### K U #### [facility] [address] [place] [address] [address] Lisa Martinez CHLORIDE URINE RANDOMon 11-06 Chloride, Urine 126 mmol/L Normal Not Estab. [facility] Comment on above: Performed By: #### B LDCX2 #### [facility] [address] [place] [address] [address] Lisa Martinez CULTURE URINEon 11-15-2022 CULTURE [...] F Trimethoprim/Sulfamethoxa zole <=20 S F Normal [facility] Comment on above: Performed By: #### U RCX #### [facility] [address] [place] [address] [address] Lisa Martinez DIGOXINon 11-15-2022 DIG 0.3 ng/mL Critically low 0.9-2.0 [facility] Comment on above: Performed By: #### B FURNACE COMBUSTION TESTER, BMP #### [facility] [address] [place] [address] Dr. Lisa Martinez MAGNESIUMon 11-15-2022 Magnesium [Mass/Vol] 2.2 mg/dL Normal 1.8-2.4 [facility] Comment on above: Performed By: #### B FURNACE COMBUSTION TESTER, CMP, MG ####[facility] [id number] [address]DrIngrid Martinez POINT OF CARE GLUCOSEon 11-06 Glucose [Mass/Vol] 164 mg/dL Critically high 74-[address] [facility] Comment on above: Performed By: #### C BC #### [facility] [address] [address] [address] Lisa Martinez PROF 14(COMP METB)on 023 Albumin [Mass/Vol] 3.3 g/dL Critically low 3.4-5.0 [facility] Comment on above: Performed By: #### B FURNACE COMBUSTION TESTER, CMP, MG ####[facility] [address] [address]DrIngrid Martinez Albumin/Globulin [Mass ratio] 0.7 {ratio} Normal [facility] Comment on above: Performed By: #### B FURNACE COMBUSTION TESTER, CMP, MG ####[facility] [address] [address]DrIngrid Martinez ALP [Catalytic activity/Vol] 75 U/L Normal 46-116 [facility] Comment on above: Performed By: #### B FURNACE COMBUSTION TESTER, CMP, MG ####[facility] [address] [address]Dr. Lisa Martinez ALT [Catalytic activity/Vol] 14 U/L Normal 14-59 [facility] Comment on above: Performed By: #### B FURNACE COMBUSTION TESTER, CMP, MG ####[facility] [address] [address]Dr. Lisa Martinez Anion gap [Moles/Vol] 11.1 mmol/L Normal [facility] Comment on above: Performed By: #### B FURNACE COMBUSTION TESTER, CMP, MG ####[facility] [address]eb[address] [address]Dr. Lisa Martinez AST [Catalytic activity/Vol] 14 U/L Critically low 15-37 [facility] Comment on above: Performed By: #### B FURNACE COMBUSTION TESTER, CMP, MG ####[facility] [address] [address]Dr. Lisa Martinez Bilirubin [Mass/Vol] 0.9 mg/dL Normal 0.2-1.0 [facility] Comment on above: Performed By: #### B FURNACE COMBUSTION TESTER, CMP, MG ####[facility] [address] [place], [place] [address]Dr. Lisa Martinez Calcium [Mass/Vol] 9.1 mg/dL Normal 8.5-10.1 [facility] Comment on above: Performed By: #### B FURNACE COMBUSTION TESTER, CMP, MG ####[facility] [address] [address]Dr. Lisa Martinez Chloride [Moles/Vol] 100 mmol/L Normal 98-107 [facility] Comment on above: Performed By: #### B FURNACE COMBUSTION TESTER, CMP, MG ####[facility] [address]zt[address] [address]Dr. Lisa Martinez CO2 [Moles/Vol] 32.6 mmol/L Critically high 21.0-32.0 [facility] Comment on above: Performed By: #### B FURNACE COMBUSTION TESTER, CMP, MG ####[facility] [address]omitpy[address] [address]Dr. Lisa Martinez Creatinine [Mass/Vol] 2.65 mg/dL Critically high 0.55-1.02 [facility] Comment on above: Performed By: #### B FURNACE COMBUSTION TESTER, CMP, MG ####[facility] [address] [address]Dr. Lisa Martinez EGFR-AF HAITIAN 21 mL/min/1.73m2 Critically low >=60 [facility] Comment on above: Performed By: #### B FURNACE COMBUSTION TESTER, CMP, MG ####[facility] [address]my[address]nuz[address] [address]Dr. Lisa Martinez EGFR-NON AF HAITIAN 17 mL/min/1.73m2 Critically low >=60 [facility] Comment on above: Performed By: #### B FURNACE COMBUSTION TESTER, CMP, MG ####[facility] [address]taa[address] [address]Dr. Lisa Martinez Globulin (S) [Mass/Vol] 4.7 g/dL Normal [facility] Comment on above: Performed By: #### B FURNACE COMBUSTION TESTER, CMP, MG ####[facility] [address]fh[address] [address]Dr. Lisa Martinez Glucose [Mass/Vol] 131 mg/dL Critically high 74-[address] [facility] Comment on above: Performed By: #### B FURNACE COMBUSTION TESTER, CMP, MG ####[facility] [address]em[address] [address]Dr. Lisa Martinez Potassium [Moles/Vol] 3.7 mmol/L Normal 3.5-5.1 [facility] Comment on above: Performed By: #### B FURNACE COMBUSTION TESTER, CMP, MG ####[facility] [address]fr[address]of[address] [address]Dr. Lisa Martinez Protein [Mass/Vol] 8.0 g/dL Normal 6.4-8.2 [facility] Comment on above: Performed By: #### B FURNACE COMBUSTION TESTER, CMP, MG ####[facility] [address]rgjuayj[address] [address]Dr. Lisa Martinez Sodium [Moles/Vol] 140 mmol/L Normal 136-145 [facility] Comment on above: Performed By: #### B FURNACE COMBUSTION TESTER, CMP, MG ####[facility] [address]ulner[address] [address]Dr. Lisa Martinez Urea nitrogen [Mass/Vol] 66.0 mg/dL Critically high 7.0-18.0 [facility] Comment on above: Performed By: #### B FURNACE COMBUSTION TESTER, CMP, MG ####[facility] [address]lt[address] [place] [address]Dr. Lisa Martinez Urea nitrogen/Creatinine [Mass ratio] 24.9 mg/mg Normal [facility] Comment on above: Performed By: #### B FURNACE COMBUSTION TESTER, CMP, MG ####[facility] [address] [address]Dr. Lisa Martinez UREA NITROGEN, RANDOM URon 0 11-15-2022 Urea Nitrogen, Urine 165 mg/dL Normal Not Estab. [facility] Comment on above: Performed By: #### U NR ####[facility] [address] [place], [place] [address]Dr. Lisa Martinez BNPon 11-14-2022 Natriuretic peptide B (Bld) [Mass/Vol] 8525.0 pg/mL Critically high <=1,800.0 [facility] Comment on above: Performed By: #### B FURNACE COMBUSTION TESTER ####[facility] [address] [place], [place] [address]Dr. Lisa Martinez CBC AUTO DIFFon 11-14-2022 BASO # 0.0 103/ul Normal 0.0-0.1 [facility] Comment on above: Performed By: #### C VDTBH #### [facility] [address] [place] [address] Dr. Lisa Martinez Basophils/100 WBC (Bld) 0.5 % Normal 0.2-2.0 [facility] Comment on above: Performed By: #### C VDTBH #### [facility] [address] [place] [address] Dr. Lisa Martinez EO # 0.2 103/ul Normal 0.0-0.7 [facility] Comment on above: Performed By: #### C VDTBH #### [facility] [address] [place] [address] Dr. Lisa Martinez Eosinophils/100 WBC (Bld) 3.4 % Normal 0.9-7.0 [facility] Comment on above: Performed By: #### C VDTBH #### [facility] [address] [place] [address] Dr. Lisa Martinez Erythrocyte distribution width (RBC) [Ratio] 14.9 % Normal 11.0-15.0 [facility] Comment on above: Performed By: #### C VDTBH #### [facility] [address] [place] [address] Dr. Lisa Martinez Hematocrit (Bld) [Volume fraction] 31.3 % Critically low 36.0-48.0 [facility] Comment on above: Performed By: #### C VDTBH #### [facility] [address] [place] [address] Dr. Lisa Martinez Hemoglobin (Bld) [Mass/Vol] 9.4 g/dL Critically low 12.0-16.0 [facility] Comment on above: Performed By: #### C VDTBH #### [facility] [address] [place] [address] Dr. Lisa Martinez IG # 0.01 10e3/ul Normal 0.00-0.03 [facility] Comment on above: Performed By: #### C VDTBH #### [facility] [address] [place] [address] Dr. Lisa Martinez IG % 0.2 % Normal 0.0-0.5 [facility] Comment on above: Performed By: #### C VDTBH #### [facility] [address] [place] [address] Dr. Lisa Martinez LYMPH # 0.9 103/ul Critically low 1.2-3.8 [facility] Comment on above: Performed By: #### C VDTBH #### [facility] [address] [place] [address] Dr. Lisa Martinez Lymphocytes/100 WBC (Bld) 15.2 % Critically low 20.5-60.0 [facility] Comment on above: Performed By: #### C VDTBH #### [facility] [address] [place] [address] Dr. Lisa Martinez MANUAL DIFF REQ NO Normal [facility] Comment on above: Performed By: #### C VDTBH #### [facility] [address] [place] [address] Dr. Lisa Martinez MCH (RBC) [Entitic mass] 29.0 pg Normal 26.7-34.0 [facility] Comment on above: Performed By: #### C VDTBH #### [facility] [address] [place] [address] Dr. Lisa Martinez MCHC (RBC) [Mass/Vol] 30.0 g/dL Normal 29.9-35.2 [facility] Comment on above: Performed By: #### C VDTBH #### [facility] [address] [place] [address] Dr. Lisa Martinez MCV (RBC) [Entitic vol] 96.6 fL Normal 81.0-99.0 [facility] Comment on above: Performed By: #### C VDTBH #### [facility] [address] [place] [address] Dr. Lisa Martinez MONO # 0.6 103/ul Normal 0.3-0.8 [facility] Comment on above: Performed By: #### C VDTBH #### [facility] [address] [place] [address] Dr. Lisa Martinez Monocytes/100 WBC (Bld) 10.2 % Normal 1.7-12.0 [facility] Comment on above: Performed By: #### C VDTBH #### [facility] [address] [place] [address] Dr. Lisa Martinez NEUT # 4.0 103/ul Normal 1.4-6.5 [facility] Comment on above: Performed By: #### C VDTBH #### [facility] [address] [place] [address] Dr. Lisa Martinez Neutrophils/100 WBC (Bld) 70.5 % Normal 43.0-75.0 [facility] Comment on above: Performed By: #### C VDTBH #### [facility] [address] [address] [address] Lisa Martinez Platelet mean volume (Bld) [Entitic vol] 10.3 fL Normal 9.5-13.5 [facility] Comment on above: Performed By: #### C VDTBH #### [facility] [address] [address] [address] Lisa Martinez PLT 192 103/ul Normal 150-450 [facility] Comment on above: Performed By: #### C VDTBH #### [facility] [address] [address] [address] Lisa Martinez RBC 3.24 106/ul Critically low 4.20-5.40 [facility] Comment on above: Performed By: #### C VDTBH #### [facility] [address] [place] [address] Dr. Lisa Martinez WBC 5.7 103/ul Normal 4.0-11.0 [facility] Comment on above: Performed By: #### C VDTBH #### [facility] [address] [place] [address] Dr. Lisa Martinez D-DIMERon 11-14-2022 D-DIMER 0.82 mg/L FEU Critically high <=0.59 [facility] Comment on above: Performed By: #### B FURNACE COMBUSTION TESTER, BMP #### [facility] [address] [place] [address] Dr. Lisa Martinez D-DIMER COMMENTS SEE BELOW Normal [facility] Comment on above: Result Comment: Incr [...] and generalized hospitalization. Performed By: #### B FURNACE COMBUSTION TESTER, BMP #### [facility] [address] [place], [place] [id number] Dr. Lisa Martinez ECHO LIMITED STUDYon 11-14- 023 ECHO LIMITED STUDY Patient: URSZULA QUINONES Exam Date: 11/14/2022 : 1940 Gender:F Ordering : DR ROBERTO ZIMMERMAN . Admission #: [id number] Family : Order #: [id number] CLICK HERE TO VIEW EXAM ECHOCARDIOGRAM REPORT [...] Marley M.D. on 11/14/2022 at 16:43 Normal [facility] MAGNESIUMon 11-14-2022 Magnesium [Mass/Vol] 2.3 mg/dL Normal 1.8-2.4 [facility] Comment on above: Performed By: #### U RCX #### [facility] [address] [address] [address] Lisa Martinez NM LUNG VENT_PERFon 11-15-19 [...] by: SADIE GARCIA Date: 2022-11-14 19:11 Normal [facility] OCC BLD IMMUNO SCREENon OCCULT BLOOD Negative Normal NEGATIVE [facility] Comment on above: Performed By: #### B LDCX2 #### [facility] [address] [id number] [address] Lisa Martinez POINT OF CARE GLUCOSEon Glucose [Mass/Vol] 155 mg/dL Critically high 74-[address] [facility] Comment on above: Performed By: #### P OCGLUC ####[facility] [address] [place], [place] [address]JjDr. Lisa Martinez Glucose [Mass/Vol] 148 mg/dL Critically high 74-106 [facility] Comment on above: Performed By: #### B LDCX2 #### [facility] [address] [address] [address] Lisa Martinez Glucose [Mass/Vol] 76 mg/dL Normal 74-106 [facility] Comment on above: Performed By: #### B LDCX2 #### [facility] [address] [address] [address] Lisa Martinez POTASSIUM URINEon 11-14-2022 UR POTASSIUM 21.3 mmol/L Normal [facility] Comment on above: Performed By: #### K U #### [facility] [address] [place] [address] Dr. Lisa Martinez PROF 14(COMP METB)on 023 Albumin [Mass/Vol] 3.3 g/dL Critically low 3.4-5.0 [facility] Comment on above: Performed By: #### U RCX #### [facility] [address] [place] [address] Dr. Lisa Martinez Albumin/Globulin [Mass ratio] 0.7 {ratio} Normal [facility] Comment on above: Performed By: #### U RCX #### [facility] [address] [place] [address] Dr. Lisa Martinez ALP [Catalytic activity/Vol] 72 U/L Normal 46-116 [facility] Comment on above: Performed By: #### U RCX #### [facility] [address] [address] [address] Lisa Martinez ALT [Catalytic activity/Vol] 16 U/L Normal 14-59 [facility] Comment on above: Performed By: #### U RCX #### [facility] [address] [address] [address] Lisa Martinez Anion gap [Moles/Vol] 13.0 mmol/L Normal [facility] Comment on above: Performed By: #### U RCX #### [facility] [address] [address] [address] Lisa Martinez AST [Catalytic activity/Vol] 13 U/L Critically low 15-37 [facility] Comment on above: Performed By: #### U RCX #### [facility] [address] [address] [address] Lisa Martinez Bilirubin [Mass/Vol] 0.8 mg/dL Normal 0.2-1.0 [facility] Comment on above: Performed By: #### U RCX #### [facility] [address] [address] [address] Lisa Martinez Calcium [Mass/Vol] 9.0 mg/dL Normal 8.5-10.1 [facility] Comment on above: Performed By: #### U RCX #### [facility] [address] [address] [address] Lisa Martinez Chloride [Moles/Vol] 100 mmol/L Normal 98-107 [facility] Comment on above: Performed By: #### U RCX #### [facility] [address] [place] [address] Dr. Lisa Martinez CO2 [Moles/Vol] 30.0 mmol/L Normal 21.0-32.0 [facility] Comment on above: Performed By: #### U RCX #### [facility] [address] [place] [address] Dr. Lisa Martinez Creatinine [Mass/Vol] 2.79 mg/dL Critically high 0.55-1.02 [facility] Comment on above: Performed By: #### U RCX #### [facility] [address] [address] [address] Lisa Martinez EGFR-AF HAITIAN 20 mL/min/1.73m2 Critically low >=60 [facility] Comment on above: Performed By: #### U RCX #### [facility] [address] [address] [address] Lisa Martinez EGFR-NON AF HAITIAN 16 mL/min/1.73m2 Critically low >=60 [facility] Comment on above: Performed By: #### U RCX #### [facility] [address] [address] [address] Lisa Martinez Globulin (S) [Mass/Vol] 4.6 g/dL Normal [facility] Comment on above: Performed By: #### U RCX #### [facility] [address] [address] [address] Lisa Martinez Glucose [Mass/Vol] 153 mg/dL Critically high 74-106 [facility] Comment on above: Performed By: #### U RCX #### [facility] [address] [address] [address] Lisa Martinez Potassium [Moles/Vol] 4.0 mmol/L Normal 3.5-5.1 [facility] Comment on above: Performed By: #### U RCX #### [facility] [address] [place] [address] Dr. Lisa Martinez Protein [Mass/Vol] 7.9 g/dL Normal 6.4-8.2 [facility] Comment on above: Performed By: #### U RCX #### [facility] [address] [place] [address] Dr. Lisa Martinez Sodium [Moles/Vol] 139 mmol/L Normal 136-145 [facility] Comment on above: Performed By: #### U RCX #### [facility] [address] [place] [address] Dr. Lisa Martinez Urea nitrogen [Mass/Vol] 67.0 mg/dL Critically high 7.0-18.0 [facility] Comment on above: Performed By: #### U RCX #### [facility] [address] [place] [address] Dr. Lisa Martinez Urea nitrogen/Creatinine [Mass ratio] 24.0 mg/mg Normal [facility] Comment on above: Performed By: #### U RCX #### [facility] [address] [place] [address] Dr. Lisa Martinez SODIUM RANDOM URINEon 2022 Sodium (U) [Moles/Vol] 122 mmol/L Critically high 30-90 [facility] Comment on above: Performed By: #### B FURNACE COMBUSTION TESTER, BMP #### [facility] [address] [place] [address] Dr. Lisa Martinez T3, TOTAL (TRIIODOTHYRONINE) on 11-14-2022 T3, TOTAL 84 ng/dL Normal 71-180 [facility] Comment on above: Performed By: #### U RCX #### [facility] [address] [address] [address] Lisa Martinez BNPon 11-13-2022 Natriuretic peptide B (Bld) [Mass/Vol] 46813.0 pg/mL Critically high <=1,800.0 [facility] Comment on above: Performed By: #### B MP, HSTROPN, BNP ####[facility] [address] [address]Dr. Lisa Martinez CARDIAC DONY 3-6on 3 CK [Catalytic activity/Vol] 60 U/L Normal 26-192 [facility] Comment on above: Performed By: #### C MREP ####[facility] [address] [place], [place] [address]Dr. Lisa Martinez CK.MB [Mass/Vol] 0.96 ng/mL Normal <=3.60 [facility] Comment on above: Performed By: #### C MREP ####[facility] [address] [place], [place] [address]Dr. Lisa Martinez HSTROP 16.3 pg/mL Normal 4.0-51.3 [facility] Comment on above: Result Comment: CUT- OFF POINTS HAVE BEEN ESTABLISHED BASED ON THE FOURTH UNIVERSAL DEFINITIONS OF MYOCARDIAL INFARCTION. THE UPPER REFERENCE LIMIT (URL) OF TROPONIN, DEFINED THE 99TH PERCENTILE OF cTnI DISTRIBUTION IN A REFERENCE POPULATION, HAS BEEN CONFIRMED THE DECISION THRESHOLD FOR [place] DIAGNOSIS. Performed By: #### C MREP ####[facility] [address] [address]Dr. Lisa Martinez CK [Catalytic activity/Vol] 60 U/L Normal 26-192 [facility] Comment on above: Performed By: #### C BC #### [facility] [address] [place] [address] Dr. Lisa Martinez CK.MB [Mass/Vol] 0.94 ng/mL Normal <=3.60 [facility] Comment on above: Performed By: #### C BC #### [facility] [address] [place] [address] Dr. Lisa Martinez HSTROP 15.1 pg/mL Normal 4.0-51.3 [facility] Comment on above: Result Comment: CUT- OFF POINTS HAVE BEEN ESTABLISHED BASED ON THE FOURTH UNIVERSAL DEFINITIONS OF MYOCARDIAL INFARCTION. THE UPPER REFERENCE LIMIT (URL) OF TROPONIN, DEFINED THE 99TH PERCENTILE OF cTnI DISTRIBUTION IN A REFERENCE POPULATION, HAS BEEN CONFIRMED THE DECISION THRESHOLD FOR [place] DIAGNOSIS. Performed By: #### C BC #### [facility] [address] [place] [address] Dr. Lisa Martinez CBC AUTO DIFFon 11-13-2022 BASO # 0.1 103/ul Normal 0.0-0.1 [facility] Comment on above: Performed By: #### C BC #### [facility] [address] [place] [address] Dr. Lisa Martinez Basophils/100 WBC (Bld) 0.6 % Normal 0.2-2.0 [facility] Comment on above: Performed By: #### C BC #### [facility] [address] [place] [address] Dr. Lisa Martinez EO # 0.2 103/ul Normal 0.0-0.7 [facility] Comment on above: Performed By: #### C BC #### [facility] [address] [place] [address] Dr. Lisa Martinez Eosinophils/100 WBC (Bld) 1.8 % Normal 0.9-7.0 [facility] Comment on above: Performed By: #### C BC #### [facility] [address] [place] [address] Dr. Lisa Martinez Erythrocyte distribution width (RBC) [Ratio] 15.0 % Normal 11.0-15.0 [facility] Comment on above: Performed By: #### C BC #### [facility] [address] [place] [address] Dr. Lisa Martinez Hematocrit (Bld) [Volume fraction] 32.9 % Critically low 36.0-48.0 [facility] Comment on above: Performed By: #### C BC #### [facility] [address] [place] [address] Dr. Lisa Martinez Hemoglobin (Bld) [Mass/Vol] 9.8 g/dL Critically low 12.0-16.0 [facility] Comment on above: Performed By: #### C BC #### [facility] [address] [place] [address] Dr. Lisa Martinez IG # 0.02 10e3/ul Normal 0.00-0.03 [facility] Comment on above: Performed By: #### C BC #### [facility] [address] [place] [address] Dr. Lisa Martinez IG % 0.2 % Normal 0.0-0.5 [facility] Comment on above: Performed By: #### C BC #### [facility] [address] [place] [address] Dr. Lisa Martinez LYMPH # 0.7 103/ul Critically low 1.2-3.8 [facility] Comment on above: Performed By: #### C BC #### [facility] [address] [place] [address] Dr. Lisa Martinez Lymphocytes/100 WBC (Bld) 7.8 % Critically low 20.5-60.0 [facility] Comment on above: Performed By: #### C BC #### [facility] [address] [place] [address] Dr. Lisa Martinez MANUAL DIFF REQ NO Normal [facility] Comment on above: Performed By: #### C BC #### [facility] [address] [place] [address] Dr. Lisa Martinez MCH (RBC) [Entitic mass] 29.4 pg Normal 26.7-34.0 [facility] Comment on above: Performed By: #### C BC #### [facility] [address] [place] [address] Dr. Lisa Martinez MCHC (RBC) [Mass/Vol] 29.8 g/dL Critically low 29.9-35.2 [facility] Comment on above: Performed By: #### C BC #### [facility] [address] [address] [address] Lisa Martinez MCV (RBC) [Entitic vol] 98.8 fL Normal 81.0-99.0 [facility] Comment on above: Performed By: #### C BC #### [facility] [address] [address] [address] Lisa Martinez MONO # 0.7 103/ul Normal 0.3-0.8 [facility] Comment on above: Performed By: #### C BC #### [facility] [address] [address] [address] Lisa Martinez Monocytes/100 WBC (Bld) 7.6 % Normal 1.7-12.0 [facility] Comment on above: Performed By: #### C BC #### [facility] [address] [place] [address] Dr. Lisa Martinez NEUT # 7.0 103/ul Critically high 1.4-6.5 [facility] Comment on above: Performed By: #### C BC #### [facility] [address] [place] [address] Dr. Lisa Martinez Neutrophils/100 WBC (Bld) 82.0 % Critically high 43.0-75.0 [facility] Comment on above: Performed By: #### C BC #### [facility] [address] [place] [address] Dr. Lisa Martinez Platelet mean volume (Bld) [Entitic vol] 10.6 fL Normal 9.5-13.5 [facility] [place] Comment on above: Performed By: #### C BC #### [facility] [address] [place] [address] Dr. Lisa Martinez PLT 209 103/ul Normal 150-450 [facility] Comment on above: Performed By: #### C BC #### [facility] [address] [place] [address] Dr. Lisa Martinez RBC 3.33 106/ul Critically low 4.20-5.40 [facility] Comment on above: Performed By: #### C BC #### [facility] [address] [address] [address] Lisa Martinez WBC 8.6 103/ul Normal 4.0-11.0 [facility] Comment on above: Performed By: #### C BC #### [facility] [address] [address] [address] Lisa Martinez LACTATE/LACTIC ACIDon 2022 Lactate [Moles/Vol] 3.4 mmol/L Critically high 0.4-2.0 [facility] Comment on above: Performed By: #### L ACT ####[facility] [address] [address]Dr. Lisa Martinez MAGNESIUMon 11-13-2022 Magnesium [Mass/Vol] 2.6 mg/dL Critically high 1.8-2.4 [facility] Comment on above: Performed By: #### B FURNACE COMBUSTION TESTER, BMP #### [facility] [address] [place] [address] Dr. Lisa Martinez PROF CHEM 8 (BAS METB)on Anion gap [Moles/Vol] 15.7 mmol/L Normal [facility] Comment on above: Performed By: #### C BC #### [facility] [address] [place] [address] Dr. Lisa Martinez Calcium [Mass/Vol] 9.1 mg/dL Normal 8.5-10.1 [facility] Comment on above: Performed By: #### C BC #### [facility] [address] [place] [address] Dr. Lisa Martinez Chloride [Moles/Vol] 103 mmol/L Normal 98-107 [facility] Comment on above: Performed By: #### C BC #### [facility] [address] [place] [address] Dr. Lisa Martinez CO2 [Moles/Vol] 27.2 mmol/L Normal 21.0-32.0 [facility] Comment on above: Performed By: #### C BC #### [facility] [address] [place] [address] Dr. Lisa Martinez Creatinine [Mass/Vol] 2.91 mg/dL Critically high 0.55-1.02 [facility] Comment on above: Performed By: #### C BC #### [facility] [address] [address] [address] Lisa Martinez EGFR-AF HAITIAN 19 mL/min/1.73m2 Critically low >=60 [facility] Comment on above: Performed By: #### C BC #### [facility] [address] [address] [address] Lisa Martinez EGFR-NON AF HAITIAN 15 mL/min/1.73m2 Critically low >=60 [facility] Comment on above: Performed By: #### C BC #### [facility] [address] [address] [address] Lisa Martinez Glucose [Mass/Vol] 172 mg/dL Critically high 74-[address] [facility] Comment on above: Performed By: #### C BC #### [facility] [address] [address] [address] Lisa Martinez Potassium [Moles/Vol] 4.9 mmol/L Normal 3.5-5.1 [facility] Comment on above: Performed By: #### C BC #### [facility] [address] [address] [address] Lisa Martinez Sodium [Moles/Vol] 141 mmol/L Normal 136-145 [facility] Comment on above: Performed By: #### C BC #### [facility] [address] [address] [address] Lisa Martinez Urea nitrogen [Mass/Vol] 64.0 mg/dL Critically high 7.0-18.0 [facility] Comment on above: Performed By: #### C BC #### [facility] [address] [address] [address] Lisa Martinez Urea nitrogen/Creatinine [Mass ratio] 22.0 mg/mg Normal [facility] Comment on above: Performed By: #### C BC #### [facility] [address] [address] [address] Lisa Martinez Anion gap [Moles/Vol] 17.4 mmol/L Normal [facility] Comment on above: Performed By: #### B MP, HSTROPN, BNP ####[facility] [address] [address]Dr. Lisa Martinez Calcium [Mass/Vol] 9.1 mg/dL Normal 8.5-10.1 [facility] Comment on above: Performed By: #### B MP, HSTROPN, BNP ####[facility] [address] [address]Dr. Lisa Martinez Chloride [Moles/Vol] 104 mmol/L Normal 98-107 [facility] Comment on above: Performed By: #### B MP, HSTROPN, BNP ####[facility] [address] [place], [place] [address]Dr. Lisa Martinez CO2 [Moles/Vol] 26.9 mmol/L Normal 21.0-32.0 [facility] Comment on above: Performed By: #### B MP, HSTROPN, BNP ####[facility] [address] [place], [place] [address]Dr. Lisa Martinez Creatinine [Mass/Vol] 3.12 mg/dL Critically high 0.55-1.02 [facility] Comment on above: Performed By: #### B MP, HSTROPN, BNP ####[facility] [address] [address]Dr. Lisa Martinez EGFR-AF HAITIAN 17 mL/min/1.73m2 Critically low >=60 [facility] Comment on above: Performed By: #### B MP, HSTROPN, BNP ####[facility] [address] [place], [place] [address]Dr. Lisa Martinez EGFR-NON AF HAITIAN 14 mL/min/1.73m2 Critically low >=60 [facility] Comment on above: Performed By: #### B MP, HSTROPN, BNP ####[facility] [address] [address]Dr. Lisa Martinez Glucose [Mass/Vol] 131 mg/dL Critically high 74-[address] [facility] Comment on above: Performed By: #### B MP, HSTROPN, BNP ####[facility] [address] [address]Dr. Lisa Martinez Potassium [Moles/Vol] 5.3 mmol/L Critically high 3.5-5.1 [facility] Comment on above: Performed By: #### B MP, HSTROPN, BNP ####[facility] [address] [address]Dr. Lisa Martinez Sodium [Moles/Vol] 143 mmol/L Normal 136-145 [facility] Comment on above: Performed By: #### B MP, HSTROPN, BNP ####[facility] [address] [address]Dr. Lisa Martinez Urea nitrogen [Mass/Vol] 59.0 mg/dL Critically high 7.0-18.0 [facility] Comment on above: Performed By: #### B MP, HSTROPN, BNP ####[facility] [address] [address]Dr. Lisa Martinez Urea nitrogen/Creatinine [Mass ratio] 18.9 mg/mg Normal [facility] Comment on above: Performed By: #### B MP, HSTROPN, BNP ####[facility] [address] [address]Dr. Lisa Martinez SYMPTOMATIC COVID-19 ANTIGEN on 11-13-2022 EUA Statement SEE BELOW Normal [facility] Comment on above: Result Comment: [...] sooner. Performed By: #### C VDTBH #### [facility] [address] [address] [address] Lisa Martinez SARS-CoV-2 (COVID-19) RNA RACIEL+probe Ql (Unsp spec) Negative Normal NEGATIVE [facility] Comment on above: Performed By: #### C VDTBH #### [facility] [address] [address] [address] Lisa Martinez T4on 11-13-2022 T4 [Mass/Vol] 6.70 ug/dL Normal 4.80-13.90 [facility] Comment on above: Performed By: #### B FURNACE COMBUSTION TESTER, BMP #### [facility] [address] [place] [address] Dr. Lisa Martinez TROPONIN, HIGH SENSITIVITYon 11-13-2022 HSTROP 17.9 pg/mL Normal 4.0-51.3 [facility] Comment on above: Result Comment: CUT- OFF POINTS HAVE BEEN ESTABLISHED BASED ON THE FOURTH UNIVERSAL DEFINITIONS OF MYOCARDIAL INFARCTION. THE UPPER REFERENCE LIMIT (URL) OF TROPONIN, DEFINED THE 99TH PERCENTILE OF cTnI DISTRIBUTION IN A REFERENCE POPULATION, HAS BEEN CONFIRMED THE DECISION THRESHOLD FOR [place] DIAGNOSIS. Performed By: #### B MP, HSTROPN, BNP ####[facility] [address] [address]Dr. Lisa Martinez TSHon 11-13-2022 TSH 5.233 uIU/mL Critically high 0.358-3.740 [facility] Comment on above: Performed By: #### B FURNACE COMBUSTION TESTER, BMP #### [facility] [address] [place] [address] Dr. Lisa Martinez UA RANDOM W/MICROSCOPICon BACTERIA SMALL Abnormal NONE SEEN [facility] Comment on above: Performed By: #### K U #### [facility] [address] [place] [address] Dr. Lisa Martinez Bilirubin Ql (U) Negative Normal NEGATIVE [facility] Comment on above: Performed By: #### K U #### [facility] [address] [place] [address] Dr. Lisa Martinez CAST SEEN Abnormal NONE SEEN [facility] Comment on above: Performed By: #### K U #### [facility] [address] [place] [address] Dr. Lisa Martinez Clarity (U) CLEAR Normal CLEAR [facility] Comment on above: Performed By: #### K U #### [facility] [address] [place] [address] Dr. Lisa Martinez Color (U) LT. YELLOW Normal YELLOW [facility] Comment on above: Performed By: #### K U #### [facility] [address] [place] [address] Dr. Lisa Martinez Crystals LM Nom (Urine sed) NONE SEEN Normal NONE SEEN [facility] Comment on above: Performed By: #### K U #### [facility] [address] [place] [address] Dr. Lisa Martinez Epithelial cells LM Ql (Urine sed) FEW Abnormal NONE SEEN /RARE [facility] Comment on above: Performed By: #### K U #### [facility] [address] [place] [address] Dr. Lisa Martinez Glucose Ql (U) Negative Normal NEGATIVE [facility] Comment on above: Performed By: #### K U #### [facility] [address] [place] [address] Dr. Lisa Martinez Hemoglobin Ql (U) Negative Normal NEGATIVE [facility] Comment on above: Performed By: #### K U #### [facility] [address] [place] [address] Dr. Lisa Martinez HYALINE CAST FEW Normal [facility] Comment on above: Performed By: #### K U #### [facility] [address] [place] [address] Dr. Lisa Martinez Ketones Ql (U) Negative Normal NEGATIVE [facility] Comment on above: Performed By: #### K U #### [facility] [address] [place] [address] Dr. Lisa Martinez LEUKOCYTES Negative Normal NEGATIVE [facility] Comment on above: Performed By: #### K U #### [facility] [address] [place] [address] Dr. Lisa Martinez MUCOUS NONE SEEN Normal NONE SEEN [facility] Comment on above: Performed By: #### K U #### [facility] [address] [place] [address] Dr. Lisa Martinez Nitrite Ql (U) Negative Normal NEGATIVE [facility] Comment on above: Performed By: #### K U #### [facility] [address] [place] [address] Dr. Lisa Martinez pH (U) 5.5 [pH] Normal 5-9 [facility] Comment on above: Performed By: #### K U #### [facility] [address] [place] [address] Dr. Lisa Martinez RBC NONE SEEN Abnormal 0-2 [facility] Comment on above: Performed By: #### K U #### [facility] [address] [place] [address] Dr. Lisa Martinez SPEC GRAVITY 1.010 Normal 1.005-<=1.0 25 [facility] Comment on above: Performed By: #### K U #### [facility] [address] [place] [address] Dr. Lisa Martinez UA PROTEIN Negative Normal NEGATIVE/ TRACE [facility] Comment on above: Performed By: #### K U #### [facility] [address] [place] [address] Dr. Lisa Martinez Urobilinogen Qn (U) 0.2 {Mike'U}/dL Normal 0.2 - 1. 0 [facility] Comment on above: Performed By: #### K U #### [facility] [address] [place] [address] Dr. Lisa Martinez WBC NONE SEEN Normal NONE SEEN [facility] Comment on above: Performed By: #### K U #### [facility] [address] [place] [address] Dr. Lisa Martinez US KIDNEYS BLADDERon 023 [...] by: Gela ARANDA Date: 2022-11-13 16:01 Normal [facility] XR CHEST 1 Von 11-13-2022 XR [...] by: MEENA WOOTEN Date: 2022-11-13 12:20 Normal [facility] PROF CHEM 8 (BAS METB)on Anion gap [Moles/Vol] 13.5 mmol/L Normal [facility] Comment on above: Performed By: #### B MP ####[facility] [address] [id number] Martinez Calcium [Mass/Vol] 9.2 mg/dL Normal 8.5-10.1 [facility] Comment on above: Performed By: #### B MP ####[facility] [address] [place], [place] [address]ZyIngrid Martinez Chloride [Moles/Vol] 108 mmol/L Critically high 98-107 [facility] Comment on above: Performed By: #### B MP ####[facility] [address] [place], [place] [address]Dr. Lisa Martinez CO2 [Moles/Vol] 25.6 mmol/L Normal 21.0-32.0 [facility] Comment on above: Performed By: #### B MP ####[facility] [address] [place], [place] [address]Dr. Lisa Martinez Creatinine [Mass/Vol] 1.53 mg/dL Critically high 0.55-1.02 [facility] Comment on above: Performed By: #### B MP ####[facility] [address] [place], [place] [address]Dr. Lisa Martinez EGFR-AF HAITIAN 39 mL/min/1.73m2 Critically low >=60 [facility] Comment on above: Performed By: #### B MP ####[facility] [address] [place], [place] [address]Dr. Lisa Martinez EGFR-NON AF HAITIAN 32 mL/min/1.73m2 Critically low >=60 [facility] Comment on above: Performed By: #### B MP ####[facility] [address] [place], [place] [address]Dr. Lisa Martinez Glucose [Mass/Vol] 69 mg/dL Critically low 74-106 [facility] Comment on above: Performed By: #### B MP ####[facility] [address] [place], [place] [address]Dr. Lisa Martinez Potassium [Moles/Vol] 5.1 mmol/L Normal 3.5-5.1 [facility] Comment on above: Performed By: #### B MP ####[facility] [address] [place], [place] [address]Dr. Lisa Martinez Sodium [Moles/Vol] 142 mmol/L Normal 136-145 [facility] Comment on above: Performed By: #### B MP ####[facility] [address] [place], [place] [address]Dr. Lisa Martinez Urea nitrogen [Mass/Vol] 32.0 mg/dL Critically high 7.0-18.0 [facility] Comment on above: Performed By: #### B MP ####[facility] [address] [address]Dr. Lisa Martinez Urea nitrogen/Creatinine [Mass ratio] 20.9 mg/mg Normal [facility] Comment on above: Performed By: #### B MP ####[facility] [address] [address]Dr. Lisa Martinez BNPon 10-08-2022 Natriuretic peptide B (Bld) [Mass/Vol] 3489.0 pg/mL Critically high <=1,800.0 [facility] Comment on above: Performed By: #### B FURNACE COMBUSTION TESTER, BMP #### [facility] [address] [place] [address] Dr. Lisa Martinez CBC AUTO DIFFon 10-08-2022 BASO # 0.0 103/ul Normal 0.0-0.1 [facility] Comment on above: Performed By: #### B FURNACE COMBUSTION TESTER, BMP #### [facility] [address] [place] [address] Dr. Lisa Martinez Basophils/100 WBC (Bld) 0.6 % Normal 0.2-2.0 [facility] Comment on above: Performed By: #### B FURNACE COMBUSTION TESTER, BMP #### [facility] [address] [place] [address] Dr. Lisa Martinez EO # 0.2 103/ul Normal 0.0-0.7 [facility] Comment on above: Performed By: #### B FURNACE COMBUSTION TESTER, BMP #### [facility] [address] [place] [address] Dr. Lisa Martinez Eosinophils/100 WBC (Bld) 3.5 % Normal 0.9-7.0 [facility] Comment on above: Performed By: #### B FURNACE COMBUSTION TESTER, BMP #### [facility] [address] [place] [address] Dr. Lisa Martinez Erythrocyte distribution width (RBC) [Ratio] 15.5 % Critically high 11.0-15.0 [facility] Comment on above: Performed By: #### B FURNACE COMBUSTION TESTER, BMP #### [facility] [address] [place] [address] Dr. Lisa Martinez Hematocrit (Bld) [Volume fraction] 31.8 % Critically low 36.0-48.0 [facility] Comment on above: Performed By: #### B FURNACE COMBUSTION TESTER, BMP #### [facility] [address] [place] [address] Dr. Lisa Martinez Hemoglobin (Bld) [Mass/Vol] 9.8 g/dL Critically low 12.0-16.0 [facility] Comment on above: Performed By: #### B FURNACE COMBUSTION TESTER, BMP #### [facility] [address] [place] [address] Dr. Lisa Martinez IG # 0.02 10e3/ul Normal 0.00-0.03 [facility] Comment on above: Performed By: #### B FURNACE COMBUSTION TESTER, BMP #### [facility] [address] [place] [address] Dr. Lisa Martinez IG % 0.3 % Normal 0.0-0.5 [facility] Comment on above: Performed By: #### B FURNACE COMBUSTION TESTER, BMP #### [facility] [address] [place] [address] Dr. Lisa Martinez LYMPH # 0.9 103/ul Critically low 1.2-3.8 [facility] Comment on above: Performed By: #### B FURNACE COMBUSTION TESTER, BMP #### [facility] [address] [place] [address] Dr. Lisa Martinez Lymphocytes/100 WBC (Bld) 14.0 % Critically low 20.5-60.0 [facility] Comment on above: Performed By: #### B FURNACE COMBUSTION TESTER, BMP #### [facility] [address] [place] [address] Dr. Lisa Martinez MANUAL DIFF REQ NO Normal [facility] Comment on above: Performed By: #### B FURNACE COMBUSTION TESTER, BMP #### [facility] [address] [place] [address] Dr. Lisa Martinez MCH (RBC) [Entitic mass] 29.9 pg Normal 26.7-34.0 [facility] Comment on above: Performed By: #### B FURNACE COMBUSTION TESTER, BMP #### [facility] [address] [place] [address] Dr. Lisa Martinez MCHC (RBC) [Mass/Vol] 30.8 g/dL Normal 29.9-35.2 [facility] Comment on above: Performed By: #### B FURNACE COMBUSTION TESTER, BMP #### [facility] [address] [place] [address] Dr. Lisa Martinez MCV (RBC) [Entitic vol] 97.0 fL Normal 81.0-99.0 [facility] Comment on above: Performed By: #### B FURNACE COMBUSTION TESTER, BMP #### [facility] [address] [place] [address] Dr. Lisa Martinez MONO # 0.8 103/ul Normal 0.3-0.8 [facility] Comment on above: Performed By: #### B FURNACE COMBUSTION TESTER, BMP #### [facility] [address] [place] [address] Dr. Lisa Martinez Monocytes/100 WBC (Bld) 11.9 % Normal 1.7-12.0 [facility] Comment on above: Performed By: #### B FURNACE COMBUSTION TESTER, BMP #### [facility] [address] [place] [address] Dr. Lisa Martinez NEUT # 4.4 103/ul Normal 1.4-6.5 [facility] Comment on above: Performed By: #### B FURNACE COMBUSTION TESTER, BMP #### [facility] [address] [place] [address] Dr. Lisa Martinez Neutrophils/100 WBC (Bld) 69.7 % Normal 43.0-75.0 [facility] Comment on above: Performed By: #### B FURNACE COMBUSTION TESTER, BMP #### [facility] [address] [place] [address] Dr. Lisa Martinez Platelet mean volume (Bld) [Entitic vol] 10.3 fL Normal 9.5-13.5 [facility] Comment on above: Performed By: #### B FURNACE COMBUSTION TESTER, BMP #### [facility] [address] [place] [address] Dr. Lisa Martinez PLT 223 103/ul Normal 150-450 [facility] Comment on above: Performed By: #### B FURNACE COMBUSTION TESTER, BMP #### [facility] [address] [address] [address] Lisa Martinez RBC 3.28 106/ul Critically low 4.20-5.40 [facility] Comment on above: Performed By: #### B FURNACE COMBUSTION TESTER, BMP #### [facility] [address] [address] [address] Lisa Martinez WBC 6.3 103/ul Normal 4.0-11.0 [facility] Comment on above: Performed By: #### B FURNACE COMBUSTION TESTER, BMP #### [facility] [address] [address] [address] Lisa Martinez DIGOXINon 10-08-2022 DIG 1.6 ng/mL Normal 0.9-2.0 [facility] Comment on above: Performed By: #### D IG ####[facility] [address] [address]Dr. Lisa Martinez POINT OF CARE GLUCOSEon Glucose [Mass/Vol] 226 mg/dL Critically high 74-[address] [facility] Comment on above: Performed By: #### P OCGLUC ####[facility] [address] [address]Dr. Lisa Martinez Glucose [Mass/Vol] 107 mg/dL Critically high 74-[address] [facility] Comment on above: Performed By: #### B LDCX2 #### [facility] [address] [address] [address] Lisa Martinez PROF CHEM 8 (BAS METB)on Anion gap [Moles/Vol] 11.7 mmol/L Normal [facility] Comment on above: Performed By: #### B FURNACE COMBUSTION TESTER, BMP #### [facility] [address] [address] [address] Lisa Martinez Calcium [Mass/Vol] 9.2 mg/dL Normal 8.5-10.1 [facility] Comment on above: Performed By: #### B FURNACE COMBUSTION TESTER, BMP #### [facility] [address] [address] [address] Lisa Martinez Chloride [Moles/Vol] 102 mmol/L Normal 98-107 [facility] Comment on above: Performed By: #### B FURNACE COMBUSTION TESTER, BMP #### [facility] [address] [place] [address] Dr. Lisa Martinez CO2 [Moles/Vol] 29.3 mmol/L Normal 21.0-32.0 [facility] Comment on above: Performed By: #### B FURNACE COMBUSTION TESTER, BMP #### [facility] [address] [place] [address] Dr. Lisa Martinez Creatinine [Mass/Vol] 1.27 mg/dL Critically high 0.55-1.02 [facility] Comment on above: Performed By: #### B FURNACE COMBUSTION TESTER, BMP #### [facility] [address] [place] [address] Dr. Lisa Martinez EGFR-AF HAITIAN 49 mL/min/1.73m2 Critically low >=60 [facility] Comment on above: Performed By: #### B FURNACE COMBUSTION TESTER, BMP #### [facility] [address] [place] [address] Dr. Lisa Martinez EGFR-NON AF HAITIAN 40 mL/min/1.73m2 Critically low >=60 [facility] Comment on above: Performed By: #### B FURNACE COMBUSTION TESTER, BMP #### [facility] [address] [place] [address] Dr. Lisa Martinez Glucose [Mass/Vol] 98 mg/dL Normal 74-106 [facility] Comment on above: Performed By: #### B FURNACE COMBUSTION TESTER, BMP #### [facility] [address] [place] [address] Dr. Lisa Martinez Potassium [Moles/Vol] 4.0 mmol/L Normal 3.5-5.1 [facility] Comment on above: Performed By: #### B FURNACE COMBUSTION TESTER, BMP #### [facility] [address] [place] [address] Dr. Lisa Martinez Sodium [Moles/Vol] 139 mmol/L Normal 136-145 [facility] Comment on above: Performed By: #### B FURNACE COMBUSTION TESTER, BMP #### [facility] [facility] [address] [address] [address] Lisa Martinez Urea nitrogen [Mass/Vol] 26.0 mg/dL Critically high 7.0-18.0 [facility] Comment on above: Performed By: #### B FURNACE COMBUSTION TESTER, BMP #### [facility] [address] [place] [address] Dr. Lisa Martinez Urea nitrogen/Creatinine [Mass ratio] 20.5 mg/mg Normal [facility] Comment on above: Performed By: #### B FURNACE COMBUSTION TESTER, BMP #### [facility] [address] [place] [address] Dr. Lisa Martinez BNPon 10-07-2022 Natriuretic peptide B (Bld) [Mass/Vol] 6039.0 pg/mL Critically high <=1,800.0 [facility] Comment on above: Performed By: #### B FURNACE COMBUSTION TESTER ####[facility] [address] [address]Dr. Lisa Martinez CBC AUTO DIFFon 10-07-2022 BASO # 0.1 103/ul Normal 0.0-0.1 [facility] Comment on above: Performed By: #### K U #### [facility] [address] [place] [address] Dr. Lisa Martinez Basophils/100 WBC (Bld) 0.7 % Normal 0.2-2.0 [facility] Comment on above: Performed By: #### K U #### [facility] [address] [place] [address] Dr. Lisa Martinez EO # 0.3 103/ul Normal 0.0-0.7 [facility] Comment on above: Performed By: #### K U #### [facility] [address] [place] [address] Dr. Lisa Martinez Eosinophils/100 WBC (Bld) 4.0 % Normal 0.9-7.0 [facility] Comment on above: Performed By: #### K U #### [facility] [address] [place] [address] Dr. Lisa Martinez Erythrocyte distribution width (RBC) [Ratio] 15.6 % Critically high 11.0-15.0 [facility] Comment on above: Performed By: #### K U #### [facility] [address] [place] [address] Dr. Lisa Martinez Hematocrit (Bld) [Volume fraction] 34.0 % Critically low 36.0-48.0 [facility] Comment on above: Performed By: #### K U #### [facility] [address] [place] [address] Dr. Lisa Martinez Hemoglobin (Bld) [Mass/Vol] 10.4 g/dL Critically low 12.0-16.0 [facility] Comment on above: Performed By: #### K U #### [facility] [address] [place] [address] Dr. Lisa Martinez IG # 0.02 10e3/ul Normal 0.00-0.03 [facility] Comment on above: Performed By: #### K U #### [facility] [address] [place] [address] Dr. Lisa Martinez IG % 0.3 % Normal 0.0-0.5 [facility] Comment on above: Performed By: #### K U #### [facility] [address] [place] [address] Dr. Lisa Martinez LYMPH # 1.0 103/ul Critically low 1.2-3.8 [facility] Comment on above: Performed By: #### K U #### [facility] [address] [place] [address] Dr. Lisa Martinez Lymphocytes/100 WBC (Bld) 14.9 % Critically low 20.5-60.0 [facility] Comment on above: Performed By: #### K U #### [facility] [address] [place] [address] Dr. Lisa Martinez MANUAL DIFF REQ NO Normal [facility] Comment on above: Performed By: #### K U #### [facility] [address] [place] [address] Dr. Lisa Martinez MCH (RBC) [Entitic mass] 29.8 pg Normal 26.7-34.0 [facility] Comment on above: Performed By: #### K U #### [facility] [address] [address] [address] Lisa Martinez MCHC (RBC) [Mass/Vol] 30.6 g/dL Normal 29.9-35.2 [facility] Comment on above: Performed By: #### K U #### [facility] [address] [address] [address] Lisa Martinez MCV (RBC) [Entitic vol] 97.4 fL Normal 81.0-99.0 [facility] Comment on above: Performed By: #### K U #### [facility] [address] [place] [address] Dr. Lisa Martinez MONO # 0.6 103/ul Normal 0.3-0.8 [facility] Comment on above: Performed By: #### K U #### [facility] [address] [place] [address] Dr. Lisa Martinez Monocytes/100 WBC (Bld) 8.8 % Normal 1.7-12.0 [facility] Comment on above: Performed By: #### K U #### [facility] [address] [address] [address] Lisa Martinez NEUT # 4.9 103/ul Normal 1.4-6.5 [facility] Comment on above: Performed By: #### K U #### [facility] [address] [place] [address] Dr. Lisa Martinez Neutrophils/100 WBC (Bld) 71.3 % Normal 43.0-75.0 [facility] Comment on above: Performed By: #### K U #### [facility] [address] [place] [address] Dr. Lisa Martinez Platelet mean volume (Bld) [Entitic vol] 10.5 fL Normal 9.5-13.5 [facility] Comment on above: Performed By: #### K U #### [facility] [address] [place] [address] Dr. Lisa Martinez PLT 251 103/ul Normal 150-450 [facility] Comment on above: Performed By: #### K U #### [facility] [address] [address] [address] Lisa Martinez RBC 3.49 106/ul Critically low 4.20-5.40 [facility] Comment on above: Performed By: #### K U #### [facility] [address] [address] [address] Lisa Martinez WBC 6.8 103/ul Normal 4.0-11.0 [facility] Comment on above: Performed By: #### K U #### [facility] [address] [address] [address] Lisa Martinez DIGOXINon 10-07-2022 DIG 1.7 ng/mL Normal 0.9-2.0 [facility] Comment on above: Performed By: #### U RCX #### [facility] [address] [place] [address] Dr. Lisa Martinez POINT OF CARE GLUCOSEon Glucose [Mass/Vol] 185 mg/dL Critically high [address] [place] [address] Comment on above: Performed By: #### B FURNACE COMBUSTION TESTER, BMP #### [facility] [address] [address] [address] Lisa Martinez Glucose [Mass/Vol] 120 mg/dL Critically high [address] [place] [address] Comment on above: Performed By: #### C VDTBH #### [facility] [address] [place] [address] Dr. Lisa Martinez Glucose [Mass/Vol] 218 mg/dL Critically high [address] [place] [address] Comment on above: Performed By: #### B LDCX2 #### [facility] [address] [place] [address] Dr. Lisa Martinez PROF CHEM 8 (BAS METB)on Anion gap [Moles/Vol] 12.3 mmol/L Normal [facility] Comment on above: Performed By: #### B FURNACE COMBUSTION TESTER, BMP #### [facility] [address] [place] [address] Dr. Lisa Martinez Calcium [Mass/Vol] 9.3 mg/dL Normal 8.5-10.1 [facility] Comment on above: Performed By: #### B FURNACE COMBUSTION TESTER, BMP #### [facility] [address] [address] [address] Lisa Martinez Chloride [Moles/Vol] 102 mmol/L Normal 98-107 [facility] Comment on above: Performed By: #### B FURNACE COMBUSTION TESTER, BMP #### [facility] [address] [place] [address] Dr. Lisa Martinez CO2 [Moles/Vol] 30.8 mmol/L Normal 21.0-32.0 [facility] Comment on above: Performed By: #### B FURNACE COMBUSTION TESTER, BMP #### [facility] [address] [place] [address] Dr. Lisa Martinez Creatinine [Mass/Vol] 1.45 mg/dL Critically high 0.55-1.02 [facility] Comment on above: Performed By: #### B FURNACE COMBUSTION TESTER, BMP #### [facility] [address] [place] [address] Dr. Lisa Martinez EGFR-AF HAITIAN 42 mL/min/1.73m2 Critically low >=60 [facility] Comment on above: Performed By: #### B FURNACE COMBUSTION TESTER, BMP #### [facility] [address] [place] [address] Dr. Lisa Martinez EGFR-NON AF HAITIAN 34 mL/min/1.73m2 Critically low >=60 [facility] Comment on above: Performed By: #### B FURNACE COMBUSTION TESTER, BMP #### [facility] [address] [place] [address] Dr. Lisa Martinez Glucose [Mass/Vol] 103 mg/dL Normal 74-106 [facility] Comment on above: Performed By: #### B FURNACE COMBUSTION TESTER, BMP #### [facility] [address] [place] [address] Dr. Lisa Martinez Potassium [Moles/Vol] 4.1 mmol/L Normal 3.5-5.1 [facility] Comment on above: Performed By: #### B FURNACE COMBUSTION TESTER, BMP #### [facility] [address] [place] [address] Dr. Lisa Martinez Sodium [Moles/Vol] 141 mmol/L Normal 136-145 [facility] Comment on above: Performed By: #### B FURNACE COMBUSTION TESTER, BMP #### [facility] [address] [address] [address] Lisa Martinez Urea nitrogen [Mass/Vol] 26.0 mg/dL Critically high 7.0-18.0 [facility] Comment on above: Performed By: #### B FURNACE COMBUSTION TESTER, BMP #### [facility] [address] [address] [address] Lisa Martinez Urea nitrogen/Creatinine [Mass ratio] 17.9 mg/mg Normal [facility] Comment on above: Performed By: #### B FURNACE COMBUSTION TESTER, BMP #### [facility] [address] [address] [address] Lisa Martinez BNPon 10-06-2022 Natriuretic peptide B (Bld) [Mass/Vol] 6211.0 pg/mL Critically high <=1,800.0 [facility] Comment on above: Performed By: #### C MADM, LIVER, CMP, BNP ####[facility] [address] [address]Dr. Lisa Martinez CARDIAC DONY ADMITon 023 CK [Catalytic activity/Vol] 50 U/L Normal 26-192 [facility] Comment on above: Performed By: #### C MADM, LIVER, CMP, BNP ####[facility] [address] [id number] Martinez CK.MB [Mass/Vol] 0.89 ng/mL Normal <=3.60 [facility] Comment on above: Performed By: #### C MADM, LIVER, CMP, BNP ####[facility] [address] [address]Dr. Lisa Martinez HSTROP 19.1 pg/mL Normal 4.0-51.3 [facility] Comment on above: Result Comment: CUT- OFF POINTS HAVE BEEN ESTABLISHED BASED ON THE FOURTH UNIVERSAL DEFINITIONS OF MYOCARDIAL INFARCTION. THE UPPER REFERENCE LIMIT (URL) OF TROPONIN, DEFINED THE 99TH PERCENTILE OF cTnI DISTRIBUTION IN A REFERENCE POPULATION, HAS BEEN CONFIRMED THE DECISION THRESHOLD FOR [place] DIAGNOSIS. Performed By: #### C MADM, LIVER, CMP, BNP ####[facility] [address] [place], [place] [address]ZjDr. Lisa Martinez LISSY 56 ng/mL Normal 9-82 [facility] Comment on above: Performed By: #### C MADM, LIVER, CMP, BNP ####[facility] [address] [place], [place] [address]LuDr. Lisa Martinez CBC AUTO DIFFon 10-06-2022 BASO # 0.1 103/ul Normal 0.0-0.1 [facility] Comment on above: Performed By: #### C BC #### [facility] [address] [address] [address] Lisa Martinez Basophils/100 WBC (Bld) 0.7 % Normal 0.2-2.0 [facility] Comment on above: Performed By: #### C BC #### [facility] [address] [address] [address] Lisa Martinez EO # 0.2 103/ul Normal 0.0-0.7 [facility] Comment on above: Performed By: #### C BC #### [facility] [address] [address] [address] Lisa Martinez Eosinophils/100 WBC (Bld) 2.0 % Normal 0.9-7.0 [facility] Comment on above: Performed By: #### C BC #### [facility] [address] [address] [address] Lisa Martinez Erythrocyte distribution width (RBC) [Ratio] 15.7 % Critically high 11.0-15.0 [facility] Comment on above: Performed By: #### C BC #### [facility] [address] [address] [address] Lisa Martinez Hematocrit (Bld) [Volume fraction] 32.4 % Critically low 36.0-48.0 [facility] Comment on above: Performed By: #### C BC #### [facility] [address] [address] [address] Lisa Martinez Hemoglobin (Bld) [Mass/Vol] 10.0 g/dL Critically low 12.0-16.0 [facility] Comment on above: Performed By: #### C BC #### [facility] [address] [place] [address] Dr. Lisa Martinez IG # 0.02 10e3/ul Normal 0.00-0.03 [facility] Comment on above: Performed By: #### C BC #### [facility] [address] [place] [address] Dr. Lisa Martinez IG % 0.3 % Normal 0.0-0.5 [facility] Comment on above: Performed By: #### C BC #### [facility] [address] [place] [address] Dr. Lisa Martinez LYMPH # 0.7 103/ul Critically low 1.2-3.8 [facility] Comment on above: Performed By: #### C BC #### [facility] [address] [place] [address] Dr. Lisa Martinez Lymphocytes/100 WBC (Bld) 9.2 % Critically low 20.5-60.0 [facility] Comment on above: Performed By: #### C BC #### [facility] [address] [place] [address] Dr. Lisa Martinez MANUAL DIFF REQ NO Normal [facility] Comment on above: Performed By: #### C BC #### [facility] [address] [place] [address] Dr. Lisa Martinez MCH (RBC) [Entitic mass] 29.8 pg Normal 26.7-34.0 [facility] Comment on above: Performed By: #### C BC #### [facility] [address] [place] [address] Dr. Lisa Martinez MCHC (RBC) [Mass/Vol] 30.9 g/dL Normal 29.9-35.2 [facility] Comment on above: Performed By: #### C BC #### [facility] [address] [place] [address] Dr. Lisa Martinez MCV (RBC) [Entitic vol] 96.4 fL Normal 81.0-99.0 [facility] Comment on above: Performed By: #### C BC #### [facility] [address] [address] [address] Lisa Martinez MONO # 0.5 103/ul Normal 0.3-0.8 [facility] Comment on above: Performed By: #### C BC #### [facility] [address] [address] [address] Lisa Martinez Monocytes/100 WBC (Bld) 6.4 % Normal 1.7-12.0 [facility] Comment on above: Performed By: #### C BC #### [facility] [address] [address] [address] Lisa Martinez NEUT # 6.2 103/ul Normal 1.4-6.5 [facility] Comment on above: Performed By: #### C BC #### [facility] [address] [place] [address] Dr. Lisa Martinez Neutrophils/100 WBC (Bld) 81.4 % Critically high 43.0-75.0 [facility] Comment on above: Performed By: #### C BC #### [facility] [address] [address] [address] Lisa Martinez Platelet mean volume (Bld) [Entitic vol] 10.2 fL Normal 9.5-13.5 [facility] Comment on above: Performed By: #### C BC #### [facility] [address] [address] [address] Lisa aMrtinez PLT 228 103/ul Normal 150-450 [facility] Comment on above: Performed By: #### C BC #### [facility] [address] [address] [address] Lisa Martinez RBC 3.36 106/ul Critically low 4.20-5.40 [facility] Comment on above: Performed By: #### C BC #### [facility] [address] [address] [address] Lisa Martinez WBC 7.6 103/ul Normal 4.0-11.0 [facility] Comment on above: Performed By: #### C BC #### [facility] [address] [address] [address] Lisa Martinez CTA CHEST WO W [...] JENNY MARQUEZ Date: 2022-10-06 14:18 Normal [facility] Covid-19 PCR (CVDTB)on 09-08 SARS-CoV-2 (COVID-19) RNA RACIEL+probe Ql (Unsp spec) Not detected Normal NOT DETECTED [facility] Comment on above: Result Comment: When diagnostic [...] for this test is supported by the [place] of [employer] and Human Service's declaration that [...] be used). Performed By: #### C VDTBH ####[facility] [address] [address]Dr. Lisa Martinez DIGOXINon 10-06-2022 DIG 2.3 ng/mL Critically high 0.9-2.0 [facility] Comment on above: Performed By: #### C BC #### [facility] [address] [place] [address] Dr. Lisa Martinez LIVER PROFILEon 10-06-2022 BILI, CONJUGATED 0.4 mg/dL Critically high 0.0-0.2 [facility] Comment on above: Performed By: #### C MADM, LIVER, CMP, BNP ####[facility] [address] [address]Dr. Lisa Martinez POINT OF CARE GLUCOSEon 09-08 Glucose [Mass/Vol] 154 mg/dL Critically high 74-[address] [facility] Comment on above: Performed By: #### B FURNACE COMBUSTION TESTER, BMP #### [facility] [address] [place] [address] Dr. Lisa Martinez Glucose [Mass/Vol] 77 mg/dL Normal 74-106 [facility] Comment on above: Performed By: #### B FURNACE COMBUSTION TESTER, BMP #### [facility] [address] [place] [address] Dr. Lisa Martinez PROF 14(COMP METB)on 023 Albumin [Mass/Vol] 3.5 g/dL Normal 3.4-5.0 [facility] Comment on above: Performed By: #### C MADM, LIVER, CMP, BNP ####[facility] [address] [address]Dr. Lisa Martinez Albumin/Globulin [Mass ratio] 0.8 {ratio} Normal [facility] Comment on above: Performed By: #### C MADM, LIVER, CMP, BNP ####[facility] [address] [address]Dr. Lisa Martinez ALP [Catalytic activity/Vol] 94 U/L Normal 46-116 [facility] Comment on above: Performed By: #### C MADM, LIVER, CMP, BNP ####[facility] [address] [address]Dr. Lisa Martinez ALT [Catalytic activity/Vol] 13 U/L Critically low 14-59 [facility] Comment on above: Performed By: #### C MADM, LIVER, CMP, BNP ####[facility] [address] [address]Dr. Lisa Martinez Anion gap [Moles/Vol] 11.1 mmol/L Normal [facility] Comment on above: Performed By: #### C MADM, LIVER, CMP, BNP ####[facility] [address] [address]Dr. Lisa Martinez AST [Catalytic activity/Vol] 15 U/L Normal 15-37 [facility] Comment on above: Performed By: #### C MADM, LIVER, CMP, BNP ####[facility] [address] [address]Dr. Lisa Martinez Bilirubin [Mass/Vol] 1.6 mg/dL Critically high 0.2-1.0 [facility] Comment on above: Performed By: #### C MADM, LIVER, CMP, BNP ####[facility] [address] [address]Dr. Lisa Martinez Calcium [Mass/Vol] 9.2 mg/dL Normal 8.5-10.1 [facility] Comment on above: Performed By: #### C MADM, LIVER, CMP, BNP ####[facility] [address] [address]Dr. Lisa Martinez Chloride [Moles/Vol] 106 mmol/L Normal 98-107 [facility] Comment on above: Performed By: #### C MADM, LIVER, CMP, BNP ####[facility] [address] [address]Dr. Lisa Martinez CO2 [Moles/Vol] 29.0 mmol/L Normal 21.0-32.0 [facility] Comment on above: Performed By: #### C MADM, LIVER, CMP, BNP ####[facility] [address] [address]Dr. Lisa Martinez Creatinine [Mass/Vol] 1.43 mg/dL Critically high 0.55-1.02 [facility] Comment on above: Performed By: #### C MADM, LIVER, CMP, BNP ####[facility] [address] [place], [place] [address]Dr. Lisa Martinez EGFR-AF HAITIAN 42 mL/min/1.73m2 Critically low >=60 [facility] Comment on above: Performed By: #### C MADM, LIVER, CMP, BNP ####[facility] [address] [address]Dr. Lisa Martinez EGFR-NON AF HAITIAN 35 mL/min/1.73m2 Critically low >=60 [facility] Comment on above: Performed By: #### C MADM, LIVER, CMP, BNP ####[facility] [address] [address]Dr. Lisa Martinez Globulin (S) [Mass/Vol] 4.2 g/dL Normal [facility] Comment on above: Performed By: #### C MADM, LIVER, CMP, BNP ####[facility] [address] [address]Dr. Lisa Martinez Glucose [Mass/Vol] 114 mg/dL Critically high 74-[address] [facility] Comment on above: Performed By: #### C MADM, LIVER, CMP, BNP ####[facility] [address] [address]Dr. Lisa Martinez Potassium [Moles/Vol] 4.1 mmol/L Normal 3.5-5.1 [facility] Comment on above: Performed By: #### C MADM, LIVER, CMP, BNP ####[facility] [address] [address]Dr. Lisa Martinez Protein [Mass/Vol] 7.7 g/dL Normal 6.4-8.2 [facility] Comment on above: Performed By: #### C MADM, LIVER, CMP, BNP ####[facility] [address] [address]Dr. Lisa Martinez Sodium [Moles/Vol] 142 mmol/L Normal 136-145 [facility] Comment on above: Performed By: #### C MADM, LIVER, CMP, BNP ####[facility] [address] [address]Dr. Lisa Martinez Urea nitrogen [Mass/Vol] 26.0 mg/dL Critically high 7.0-18.0 [facility] Comment on above: Performed By: #### C MADM, LIVER, CMP, BNP ####[facility] [address] [address]Dr. Lisa Martinez Urea nitrogen/Creatinine [Mass ratio] 18.2 mg/mg Normal [facility] Comment on above: Performed By: #### C MADM, LIVER, CMP, BNP ####[facility] [address] [address]Dr. Lisa Martinez PROTIMEon 10-06-2022 INR Coag (PPP) [Relative time] 1.09 {INR} Normal [facility] Comment on above: Performed By: #### B FURNACE COMBUSTION TESTER, BMP #### [facility] [address] [address] [address] Lisa Martinez INR GUIDELINES SEE BELOW Normal [facility] Comment on above: Result Comment: ANTONY RED INR: 2.0 - 3.0 CONDITIONS NOT LISTED BELOW 2.5 - 3.5 FOR PROSTHETIC HEART VALVE REPLACEMENT 2.5 - 3.5 RECURRENT THROMBOSIS Performed By: #### B FURNACE COMBUSTION TESTER, BMP #### [facility] [address] [place] [address] Dr. Lisa Martinez PT Coag (PPP) [Time] 11.5 s Normal 9.0-11.6 [facility] Comment on above: Performed By: #### B FURNACE COMBUSTION TESTER, BMP #### [facility] [address] [place], [place] [id number] Dr. Lisa Martinez PTTon 10-06-2022 aPTT Coag (Bld) [Time] 26.5 s Normal 22.3-36.2 [facility] Comment on above: Performed By: #### B FURNACE COMBUSTION TESTER, BMP #### [facility] [address] [place] [address] Dr. Lisa Martinez ECHOCARDIO M/2D COMPLETEon 1 08-27-2021 ECHOCARDIO M/2D COMPLETE Patient: JENNI QUINONES Exam Date: 06/26/2022 : 1940 Gender:F Ordering : FARZANEH ARNDT Admission #: [id number] Family : Order #: [id number] CLICK HERE TO VIEW EXAM ECHOCARDIOGRAM REPORT [...] 0.81 cm2, 0.87 cm2, 0.77 cm2 Deceleration Waldo: 0.72 m/s2 Pressure Half-Time: 1.18 s Peak [...] Nova M.D. on 06/29/2022 at 15:34 Normal [facility] CBC AUTO DIFFon 05-02-2022 BASO # 0.0 103/ul Normal 0.0-0.1 [facility] Comment on above: Performed By: #### C BC #### [facility] [address] [place] [address] Dr. Lisa Martinez Basophils/100 WBC (Bld) 0.4 % Normal 0.2-2.0 [facility] Comment on above: Performed By: #### C BC #### [facility] [address] [place] [address] Dr. Lisa Martinez EO # 0.1 103/ul Normal 0.0-0.7 [facility] Comment on above: Performed By: #### C BC #### [facility] [address] [place] [address] Dr. Lisa Martinez Eosinophils/100 WBC (Bld) 1.8 % Normal 0.9-7.0 [facility] Comment on above: Performed By: #### C BC #### [facility] [address] [place] [address] Dr. Lisa Martinez Erythrocyte distribution width (RBC) [Ratio] 13.3 % Normal 11.0-15.0 [facility] Comment on above: Performed By: #### C BC #### [facility] [address] [address] [address] Lisa Martinez Hematocrit (Bld) [Volume fraction] 38.4 % Normal 36.0-48.0 [facility] Comment on above: Performed By: #### C BC #### [facility] [address] [place] [address] Dr. Lisa Martinez Hemoglobin (Bld) [Mass/Vol] 12.0 g/dL Normal 12.0-16.0 [facility] Comment on above: Performed By: #### C BC #### [facility] [address] [place] [address] Dr. Lisa Martinez IG # 0.09 10e3/ul Critically high 0.00-0.03 [facility] Comment on above: Performed By: #### C BC #### [facility] [address] [place] [address] Dr. Lisa Martinez IG % 1.6 % Critically high 0.0-0.5 [facility] Comment on above: Performed By: #### C BC #### [facility] [address] [place] [address] Dr. Lisa Martinez LYMPH # 0.9 103/ul Critically low 1.2-3.8 [facility] Comment on above: Performed By: #### C BC #### [facility] [address] [place] [address] Dr. Lisa Martinez Lymphocytes/100 WBC (Bld) 16.0 % Critically low 20.5-60.0 [facility] Comment on above: Performed By: #### C BC #### [facility] [address] [place] [address] Dr. Lisa Martinez MANUAL DIFF REQ NO Normal [facility] Comment on above: Performed By: #### C BC #### [facility] [address] [place] [address] Dr. Lisa Martinez MCH (RBC) [Entitic mass] 30.2 pg Normal 26.7-34.0 [facility] Comment on above: Performed By: #### C BC #### [facility] [address] [address] [address] Lisa Martinez MCHC (RBC) [Mass/Vol] 31.3 g/dL Normal 29.9-35.2 [facility] Comment on above: Performed By: #### C BC #### [facility] [address] [address] [address] Lisa Martinez MCV (RBC) [Entitic vol] 96.7 fL Normal 81.0-99.0 [facility] Comment on above: Performed By: #### C BC #### [facility] [address] [place] [address] Dr. Lisa Martinez MONO # 0.6 103/ul Normal 0.3-0.8 [facility] Comment on above: Performed By: #### C BC #### [facility] [address] [place] [address] Dr. Lisa Martinez Monocytes/100 WBC (Bld) 11.3 % Normal 1.7-12.0 [facility] Comment on above: Performed By: #### C BC #### [facility] [address] [place] [address] Dr. Lisa Martinez NEUT # 3.9 103/ul Normal 1.4-6.5 [facility] Comment on above: Performed By: #### C BC #### [facility] [address] [place] [address] Dr. Lisa Martinez Neutrophils/100 WBC (Bld) 68.9 % Normal 43.0-75.0 [facility] Comment on above: Performed By: #### C BC #### [facility] [address] [address] [address] Lisa Martinez Platelet mean volume (Bld) [Entitic vol] 10.7 fL Normal 9.5-13.5 [facility] Comment on above: Performed By: #### C BC #### [facility] [address] [place] [address] Dr. Lisa Martinez PLT 164 103/ul Normal 150-450 [facility] Comment on above: Performed By: #### C BC #### [facility] [address] [address] [address] Lisa Martinez RBC 3.97 106/ul Critically low 4.20-5.40 [facility] Comment on above: Performed By: #### C BC #### [facility] [address] [address] [address] Lisa Martinez WBC 5.6 103/ul Normal 4.0-11.0 [facility] Comment on above: Performed By: #### C BC #### [facility] [address] [place] [address] Dr. Lisa Martinez PROF 14(COMP METB)on 022 Albumin [Mass/Vol] 2.8 g/dL Critically low 3.4-5.0 [facility] Comment on above: Performed By: #### U RCX #### [facility] [address] [place] [address] Dr. Lisa Martinez Albumin/Globulin [Mass ratio] 0.7 {ratio} Normal [facility] Comment on above: Performed By: #### U RCX #### [facility] [address] [place] [address] Dr. Lisa Martinez ALP [Catalytic activity/Vol] 74 U/L Normal 46-116 [facility] Comment on above: Performed By: #### U RCX #### [facility] [address] [place] [address] Dr. Lisa Martinez ALT [Catalytic activity/Vol] 11 U/L Critically low 14-59 [facility] Comment on above: Performed By: #### U RCX #### [facility] [address] [place] [address] Dr. Lisa Martinez Anion gap [Moles/Vol] 13.5 mmol/L Normal [facility] Comment on above: Performed By: #### U RCX #### [facility] [address] [place] [address] Dr. Lisa Martinez AST [Catalytic activity/Vol] 14 U/L Critically low 15-37 [facility] Comment on above: Performed By: #### U RCX #### [facility] [address] [address] [address] Lisa Martinez Bilirubin [Mass/Vol] 0.5 mg/dL Normal 0.2-1.0 [facility] Comment on above: Performed By: #### U RCX #### [facility] [address] [address] [address] Lisa Martinez Calcium [Mass/Vol] 8.5 mg/dL Normal 8.5-10.1 [facility] Comment on above: Performed By: #### U RCX #### [facility] [address] [address] [address] Lisa Martinez Chloride [Moles/Vol] 103 mmol/L Normal 98-107 [facility] Comment on above: Performed By: #### U RCX #### [facility] [address] [place] [address] Dr. Lisa Martinez CO2 [Moles/Vol] 24.5 mmol/L Normal 21.0-32.0 [facility] Comment on above: Performed By: #### U RCX #### [facility] [address] [address] [address] Lisa Martinez Creatinine [Mass/Vol] 1.43 mg/dL Critically high 0.55-1.02 [facility] Comment on above: Performed By: #### U RCX #### [facility] [address] [address] [address] Lisa Martinez EGFR-AF HAITIAN 42 mL/min/1.73m2 Critically low >=60 [facility] Comment on above: Performed By: #### U RCX #### [facility] [address] [address] [address] Lisa Martinez EGFR-NON AF HAITIAN 35 mL/min/1.73m2 Critically low >=60 [facility] Comment on above: Performed By: #### U RCX #### [facility] [address] [address] [address] Lisa Martinez Globulin (S) [Mass/Vol] 4.3 g/dL Normal [facility] Comment on above: Performed By: #### U RCX #### [facility] [address] [address] [address] Lisa Martinez Glucose [Mass/Vol] 142 mg/dL Critically high 74-[address] [facility] Comment on above: Performed By: #### U RCX #### [facility] [address] [address] [address] Lisa Martinez Potassium [Moles/Vol] 4.0 mmol/L Normal 3.5-5.1 [facility] Comment on above: Performed By: #### U RCX #### [facility] [address] [address] [address] Lisa Martinez Protein [Mass/Vol] 7.1 g/dL Normal 6.4-8.2 [facility] Comment on above: Performed By: #### U RCX #### [facility] [address] [place] [address] Dr. Lisa Martinez Sodium [Moles/Vol] 137 mmol/L Normal 136-145 [facility] Comment on above: Performed By: #### U RCX #### [facility] [address] [place] [address] Dr. Lisa Martinez Urea nitrogen [Mass/Vol] 31.0 mg/dL Critically high 7.0-18.0 [facility] Comment on above: Performed By: #### U RCX #### [facility] [address] [place] [address] Dr. Lisa Martinez Urea nitrogen/Creatinine [Mass ratio] 21.7 mg/mg Normal [facility] Comment on above: Performed By: #### U RCX #### [facility] [address] [address] [address] Lisa Martinez CBC AUTO DIFFon 05-01-2022 BASO # 0.0 103/ul Normal 0.0-0.1 [facility] Comment on above: Performed By: #### U RCX #### [facility] [address] [place] [address] Dr. Lisa Martinez Basophils/100 WBC (Bld) 0.3 % Normal 0.2-2.0 [facility] Comment on above: Performed By: #### U RCX #### [facility] [address] [address] [address] Lisa Martinez EO # 0.1 103/ul Normal 0.0-0.7 [facility] Comment on above: Performed By: #### U RCX #### [facility] [address] [address] [address] Lisa Martinez Eosinophils/100 WBC (Bld) 0.9 % Normal 0.9-7.0 [facility] Comment on above: Performed By: #### U RCX #### [facility] [address] [address] [address] Lisa Martinez Erythrocyte distribution width (RBC) [Ratio] 13.4 % Normal 11.0-15.0 [facility] Comment on above: Performed By: #### U RCX #### [facility] [address] [place] [address] Dr. Lisa Martinez Hematocrit (Bld) [Volume fraction] 41.6 % Normal 36.0-48.0 [facility] Comment on above: Performed By: #### U RCX #### [facility] [address] [place] [address] Dr. Lisa Martinez Hemoglobin (Bld) [Mass/Vol] 12.8 g/dL Normal 12.0-16.0 [facility] Comment on above: Performed By: #### U RCX #### [facility] [address] [address] [address] Lisa Martinez IG # 0.16 10e3/ul Critically high 0.00-0.03 [facility] Comment on above: Performed By: #### U RCX #### [facility] [address] [address] [address] Lisa Martinez IG % 1.6 % Critically high 0.0-0.5 [facility] Comment on above: Performed By: #### U RCX #### [facility] [address] [address] [address] Lisa Martinez LYMPH # 0.8 103/ul Critically low 1.2-3.8 [facility] Comment on above: Performed By: #### U RCX #### [facility] [address] [address] [address] Lisa Martinez Lymphocytes/100 WBC (Bld) 7.8 % Critically low 20.5-60.0 [facility] Comment on above: Performed By: #### U RCX #### [facility] [address] [address] [address] Lisa Martinez MANUAL DIFF REQ NO Normal [facility] Comment on above: Performed By: #### U RCX #### [facility] [address] [address] [address] Lisa Martinez MCH (RBC) [Entitic mass] 29.8 pg Normal 26.7-34.0 [facility] Comment on above: Performed By: #### U RCX #### [facility] [address] [place] [address] Dr. Lisa Martinez MCHC (RBC) [Mass/Vol] 30.8 g/dL Normal 29.9-35.2 [facility] Comment on above: Performed By: #### U RCX #### [facility] [address] [place] [address] Dr. Lisa Martinez MCV (RBC) [Entitic vol] 96.7 fL Normal 81.0-99.0 [facility] Comment on above: Performed By: #### U RCX #### [facility] [address] [place] [address] Dr. Lisa Martinez MONO # 0.8 103/ul Normal 0.3-0.8 [facility] Comment on above: Performed By: #### U RCX #### [facility] [address] [place] [address] Dr. Lisa Martinez Monocytes/100 WBC (Bld) 8.4 % Normal 1.7-12.0 [facility] Comment on above: Performed By: #### U RCX #### [facility] [address] [place] [address] Dr. Lisa Martinez NEUT # 7.9 103/ul Critically high 1.4-6.5 [facility] Comment on above: Performed By: #### U RCX #### [facility] [address] [address] [address] Lisa Martinez Neutrophils/100 WBC (Bld) 81.0 % Critically high 43.0-75.0 [facility] Comment on above: Performed By: #### U RCX #### [facility] [address] [address] [address] Lisa Martinez Platelet mean volume (Bld) [Entitic vol] 10.6 fL Normal 9.5-13.5 [facility] Comment on above: Performed By: #### U RCX #### [facility] [address] [place] [address] Dr. Lisa Martinez PLT 211 103/ul Normal 150-450 [facility] Comment on above: Performed By: #### U RCX #### [facility] [address] [place] [address] Dr. Lisa Martinez RBC 4.30 106/ul Normal 4.20-5.40 [facility] Comment on above: Performed By: #### U RCX #### [facility] [address] [place] [address] Dr. Lisa Martinez WBC 9.8 103/ul Normal 4.0-11.0 [facility] Comment on above: Performed By: #### U RCX #### [facility] [address] [place] [address] Dr. Lisa Martinez DIGOXINon 05-01-2022 DIG 0.7 ng/mL Critically low 0.9-2.0 [facility] Comment on above: Performed By: #### B FURNACE COMBUSTION TESTER, BMP #### [facility] [address] [place] [address] Dr. Lisa Martinez GI PANEL (PCR)on 05-01-2022 Adenovirus F 40/41 Not detected Normal NOT DETECTED [facility] Comment on above: Performed By: #### B LDCX2 #### [facility] [address] [place] [address] Dr. Lisa Martinez Astrovirus Not detected Normal NOT DETECTED [facility] Comment on above: Performed By: #### B LDCX2 #### [facility] [address] [place] [address] Dr. Lisa Martinez C. Diff toxin A/B Not detected Normal NOT DETECTED [facility] Comment on above: Performed By: #### B LDCX2 #### [facility] [address] [place] [address] Dr. Lisa Martinez Campylobacter Not detected Normal NOT DETECTED [facility] Comment on above: Performed By: #### B LDCX2 #### [facility] [address] [place] [address] Dr. Lisa Martinez Cryptosporidium Not detected Normal NOT DETECTED [facility] Comment on above: Performed By: #### B LDCX2 #### [facility] [address] [place] [address] Dr. Lisa Martinez Cyclos. Cayetanensis Not detected Normal NOT DETECTED [facility] Comment on above: Performed By: #### B LDCX2 #### [facility] [address] [place] [address] Dr. Lisa Martinez E. Coli O157 Not Applicable Normal Not Applicable [facility] Comment on above: Performed By: #### B LDCX2 #### [facility] [address] [place] [address] Dr. Lisa Martinez E. histolytica Not detected Normal NOT DETECTED [facility] Comment on above: Performed By: #### B LDCX2 #### [facility] [address] [place] [address] Dr. Lisa Martinez EAEC Not detected Normal NOT DETECTED [facility] Comment on above: Performed By: #### B LDCX2 #### [facility] [address] [place] [address] Dr. Lsia Matrinez EIEC Not detected Normal NOT DETECTED [facility] Comment on above: Performed By: #### B LDCX2 #### [facility] [address] [place] [address] Dr. Lisa Martinez EPEC Not detected Normal NOT DETECTED [facility] Comment on above: Performed By: #### B LDCX2 #### [facility] [address] [address] [address] Lisa Martinez ETEC Not detected Normal NOT DETECTED [facility] Comment on above: Performed By: #### B LDCX2 #### [facility] [address] [address] [address] Lisa Perrin Lamblia Not detected Normal NOT DETECTED [facility] Comment on above: Performed By: #### B LDCX2 #### [facility] [address] [address] [address] Lisa MALDONADO CONTROLS PASSED Normal [facility] Comment on above: Performed By: #### B LDCX2 #### [facility] [address] [address] [address] Lisa PEREZ HEADER GI PANEL BACTERIA Normal T [facility] Comment on above: Performed By: #### B LDCX2 #### [facility] [address] [address] [address] Lisa HIRSCH ECOLI GI PANEL DIARRHEAGEN IC E.COLI / SHIGELLA Normal [facility] Comment on above: Performed By: #### B LDCX2 #### [facility] [address] [address] [address] Lisa HIRSCH INFO SEE BELOW [facility] Comment on above: Result Comment: EAEC - Enteroaggregative E. Coli EPEC- Enteropathogenic E. Coli ETEC- Enterotoxigenic E. Coli lt/st STEC- Shigella-like toxin-producing E. Coli stx1/stx2 EIEC- Shigella/Enteroinvasive E. Coli Performed By: #### B LDCX2 #### [facility] [address] [address] [address] Lisa HIRSCH PARASITES GI PANEL PARASITES Normal [facility] Comment on above: Performed By: #### B LDCX2 #### [facility] [address] [address] [address] Lisa HIRSCH VIRUS GI PANEL VIRUSES Normal [facility] Comment on above: Performed By: #### B LDCX2 #### [facility] [address] [place] [address] Dr. Lisa Martinez Norovirus GI/GII Not detected Normal NOT DETECTED [facility] Comment on above: Performed By: #### B LDCX2 #### [facility] [address] [place] [address] Dr. Lisa Martinez P. Shigelloides Not detected Normal NOT DETECTED [facility] Comment on above: Performed By: #### B LDCX2 #### [facility] [address] [place] [address] Dr. Lisa Martinez Rotavirus A Not detected Normal NOT DETECTED [facility] Comment on above: Performed By: #### B LDCX2 #### [facility] [address] [place] [address] Dr. Lisa Martinez Salmonella Not detected Normal NOT DETECTED [facility] Comment on above: Performed By: #### B LDCX2 #### [facility] [address] [place] [address] Dr. Lisa Martinez Sapovirus Not detected Normal NOT DETECTED [facility] Comment on above: Performed By: #### B LDCX2 #### [facility] [address] [place] [address] Dr. Lisa Martinez STEC Not detected Normal NOT DETECTED [facility] Comment on above: Performed By: #### B LDCX2 #### [facility] [address] [place] [address] Dr. Lisa Martinez Vibrio Not detected Normal NOT DETECTED [facility] Comment on above: Performed By: #### B LDCX2 #### [facility] [address] [place] [address] Dr. Lisa Martinez Vibrio Cholera Not detected Normal NOT DETECTED [facility] Comment on above: Performed By: #### B LDCX2 #### [facility] [address] [place] [address] Dr. Lisa Martinez Y. Enterocolitica Not detected Normal NOT DETECTED [facility] Comment on above: Performed By: #### B LDCX2 #### [facility] [address] [place] [address] Dr. Lisa Martinez MAGNESIUMon 05-01-2022 Magnesium [Mass/Vol] 2.0 mg/dL Normal 1.8-2.4 [facility] Comment on above: Performed By: #### M G ####[facility] [address] [address]Dr. Lisa Martinez POINT OF CARE GLUCOSEon 04-09 Glucose [Mass/Vol] 184 mg/dL Critically high 74-[address] [facility] Comment on above: Performed By: #### U RCX #### [facility] [address] [address] [address] Lisa Martinez Glucose [Mass/Vol] 137 mg/dL Critically high -[address] [facility] Comment on above: Result Comment: Foll ow Protocol Performed By: #### C BC #### [facility] [address] [place] [address] Dr. Lisa Martinez Glucose [Mass/Vol] 170 mg/dL Critically high -[address] [facility] Comment on above: Result Comment: Foll ow Protocol Performed By: #### P OCGLUC ####[facility] [address] [address]DrIngrid Martinez PROF 14(COMP METB)on 022 Albumin [Mass/Vol] 3.0 g/dL Critically low 3.4-5.0 [facility] Comment on above: Performed By: #### C MP ####[facility] [address] [address]DrIngrid Martinez Albumin/Globulin [Mass ratio] 0.6 {ratio} Normal [facility] Comment on above: Performed By: #### C MP ####[facility] [address] [address]DrIngrid Martinez ALP [Catalytic activity/Vol] 101 U/L Normal 46-116 [facility] Comment on above: Performed By: #### C MP ####[facility] [address] [address]DrIngrid Martinez ALT [Catalytic activity/Vol] 16 U/L Normal 14-59 [facility] Comment on above: Performed By: #### C MP ####[facility] [address] [id number]. Lisa Martinez Anion gap [Moles/Vol] 9.7 mmol/L Normal [facility] Comment on above: Performed By: #### C MP ####[facility] [address] [id number]. Lisa Martinez AST [Catalytic activity/Vol] 13 U/L Critically low 15-37 [facility] Comment on above: Performed By: #### C MP ####[facility] [address] [id number]. Lisa Martinez Bilirubin [Mass/Vol] 0.5 mg/dL Normal 0.2-1.0 [facility] Comment on above: Performed By: #### C MP ####[facility] [address] [id number]. Lisa Martinez Calcium [Mass/Vol] 8.8 mg/dL Normal 8.5-10.1 [facility] Comment on above: Performed By: #### C MP ####[facility] [address] [id number]. Lisa Martinez Chloride [Moles/Vol] 104 mmol/L Normal 98-107 [facility] Comment on above: Performed By: #### C MP ####[facility] [address] [id number]. Lisa Martinez CO2 [Moles/Vol] 26.8 mmol/L Normal 21.0-32.0 [facility] Comment on above: Performed By: #### C MP ####[facility] [address] [id number]. Lisa Martinez Creatinine [Mass/Vol] 1.51 mg/dL Critically high 0.55-1.02 [facility] Comment on above: Performed By: #### C MP ####[facility] [address] [id number]. Lisa Martinez EGFR-AF HAITIAN 40 mL/min/1.73m2 Critically low >=60 [facility] Comment on above: Performed By: #### C MP ####[facility] [address] [id number]. Lisa Martinez EGFR-NON AF HAITIAN 33 mL/min/1.73m2 Critically low >=60 [facility] Comment on above: Performed By: #### C MP ####[facility] [address] [place], [place] [address]Xn. Lisa Martinez Globulin (S) [Mass/Vol] 4.8 g/dL Normal [facility] Comment on above: Performed By: #### C MP ####[facility] [address] [id number]. Lisa Martinez Glucose [Mass/Vol] 177 mg/dL Critically high 74-106 T [facility] Comment on above: Performed By: #### C MP ####[facility] [address] [id number]. Lisa Martinez Potassium [Moles/Vol] 4.5 mmol/L Normal 3.5-5.1 [facility] Comment on above: Performed By: #### C MP ####[facility] [address] [place] [id number]. Lisa Martinez Protein [Mass/Vol] 7.8 g/dL Normal 6.4-8.2 [facility] Comment on above: Performed By: #### C MP ####[facility] [address]luays[address] [place] [id number]. Lias Martinez Sodium [Moles/Vol] 136 mmol/L Normal 136-145 [facility] Comment on above: Performed By: #### C MP ####[facility] [address]rvof[address] [place] [id number]. Lisa Martinez Urea nitrogen [Mass/Vol] 28.0 mg/dL Critically high 7.0-18.0 [facility] Comment on above: Performed By: #### C MP ####[facility] [address]fyqbe[address] [place] [id number]. Lisa Martinez Urea nitrogen/Creatinine [Mass ratio] 18.5 mg/mg Normal [facility] Comment on above: Performed By: #### C MP ####[facility] Zbpotgzmmb[address] [place] [id number]. Lisa Martinez BNPon 04-30-2022 Natriuretic peptide B (Bld) [Mass/Vol] 1752.0 pg/mL Normal <=1,800.0 [facility] Comment on above: Performed By: #### B FURNACE COMBUSTION TESTER, BMP #### [facility] [address] [place], [place] [address] Dr. Lisa Martinez CBC AUTO DIFFon 04-30-2022 BASO # 0.1 103/ul Normal 0.0-0.1 [facility] Comment on above: Performed By: #### C BC ####[facility] [address]wr[address] [place] [address]DrIngrid Martinez Basophils/100 WBC (Bld) 0.6 % Normal 0.2-2.0 [facility] Comment on above: Performed By: #### C BC ####[facility] [address] [place], [place] [address]Dr. Lisa Martinez EO # 0.1 103/ul Normal 0.0-0.7 [facility] Comment on above: Performed By: #### C BC ####[facility] Vyfx[address]fuws[address] [place], [place] [address]Dr. Lisa Martinez Eosinophils/100 WBC (Bld) 1.2 % Normal 0.9-7.0 [facility] Comment on above: Performed By: #### C BC ####[facility] Odfiwud[address] [place], [place] [address]DrIngrid Martinez Erythrocyte distribution width (RBC) [Ratio] 13.2 % Normal 11.0-15.0 [facility] Comment on above: Performed By: #### C BC ####[facility] [address]yq[address] [place], [place] [address]DrIngrid Martinez Hematocrit (Bld) [Volume fraction] 43.4 % Normal 36.0-48.0 [facility] Comment on above: Performed By: #### C BC ####[facility] Ishonxty[address] [place], [place] [address]DrIngrid Martinez Hemoglobin (Bld) [Mass/Vol] 14.2 g/dL Normal 12.0-16.0 [facility] Comment on above: Performed By: #### C BC ####[facility] [address] [place] [address]DrIngrid Martinez IG # 0.13 10e3/ul Critically high 0.00-0.03 [facility] Comment on above: Performed By: #### C BC ####[facility] [address] [place] [address]DrIngrid Martinez IG % 1.6 % Critically high 0.0-0.5 [facility] Comment on above: Performed By: #### C BC ####[facility] [address]wlemldr[address] [place] [address]DrIngrid Martinez LYMPH # 0.8 103/ul Critically low 1.2-3.8 [facility] Comment on above: Performed By: #### C BC ####[facility] [address]vbhanbcg[address] [place] [address]DrIngrid Martinez Lymphocytes/100 WBC (Bld) 9.8 % Critically low 20.5-60.0 [facility] Comment on above: Performed By: #### C BC ####[facility] [address]fbmcgnnll[address] [place] [address]DrIngrid Martinez MANUAL DIFF REQ NO Normal [facility] Comment on above: Performed By: #### C BC ####[facility] [address]ijsrqhk[address] [place] [address]DrIngrid Martinez MCH (RBC) [Entitic mass] 30.0 pg Normal 26.7-34.0 [facility] Comment on above: Performed By: #### C BC ####[facility] [address]stpfzmkh[address] [place] [address]DrIngrid Martinez MCHC (RBC) [Mass/Vol] 32.7 g/dL Normal 29.9-35.2 [facility] Comment on above: Performed By: #### C BC ####[facility] [address]usdhi[address] [place] [address]DrIngrid Martinez MCV (RBC) [Entitic vol] 91.8 fL Normal 81.0-99.0 [facility] Comment on above: Performed By: #### C BC ####[facility] [address]vrxvcwth[address] [place] [address]DrIngrid Martinez MONO # 1.2 103/ul Critically high 0.3-0.8 [facility] Comment on above: Performed By: #### C BC ####[facility] [address]rhrshllzm[address] [place] [address]DrIngrid Martinez Monocytes/100 WBC (Bld) 15.0 % Critically high 1.7-12.0 [facility] Comment on above: Performed By: #### C BC ####[facility] [address] [place], [place] [address]DrIngrid Jungchapis Juan NEUT # 5.8 103/ul Normal 1.4-6.5 [facility] Comment on above: Performed By: #### C BC ####[facility] [address]qrduub[address] [place], [place] [address]Dr. Lisa Martinez Neutrophils/100 WBC (Bld) 71.8 % Normal 43.0-75.0 [facility] Comment on above: Performed By: #### C BC ####[facility] [address] [place], [place] [address]DrIngrid Martinez Platelet mean volume (Bld) [Entitic vol] 10.5 fL Normal 9.5-13.5 [facility] Comment on above: Performed By: #### C BC ####[facility] Klldolfkzw[address] [place], [place] [address]Dr. Lisa Martinez PLT 242 103/ul Normal 150-450 [facility] Comment on above: Performed By: #### C BC ####[facility] [address] [place], [place] [id number] Martinez RBC 4.73 106/ul Normal 4.20-5.40 [facility] Comment on above: Performed By: #### C BC ####[facility] [address] [place] [id number] Martinez WBC 8.1 103/ul Normal 4.0-11.0 [facility] Comment on above: Performed By: #### C BC ####[facility] Xiafnyxqtr[address] [place] [address]. Lisa Martinez CT HEAD WO CONon 04-30-2022 [...] MEENA HAWKINS Date: 2022-04-30 07:46 Normal [facility] CULTURE BLOODon 04-30-2022 Microscopic examination of blood, culture Culture Observations: NO GROWTH AT 5 DAYS. Normal [facility] Comment on above: Performed By: #### B LDCX2 #### [facility] [address] [place] [address] [address] Lisa Martinez Microscopic examination of blood, culture Culture Observations: NO GROWTH AT 5 DAYS. Normal [facility] Comment on above: Performed By: #### B LDCX1 ####[facility] [address]unbar[address] [place] [address]Dr. Lisa Martinez CULTURE URINEon 04-30-2022 CULTURE URINE Culture Observations : No growth Normal [facility] Comment on above: Performed By: #### U RCX ####[facility] Dayhtdoeax[address] [place] [address]Dr. Lisa Martinez Covid-19 PCR (CVDTB)on 04-09 SARS-CoV-2 (COVID-19) RNA RACIEL+probe Ql (Unsp spec) Detected Critically abnormal NOT DETECTED [facility] Comment on above: Result Comment: This test is not yet approved or cleared by the [place] FDA. When there are no FDA-approved or cleared tests available, and other criteria are met, FDA can make tests available under an emergency access mechanism called an Emergency Use Authorization (EUA). The EUA for this test is supported by the Charge Master Specialist of Health and Human Service's declaration [...] used). Performed By: #### C VDTB #### [facility] [address] [place] [address] Dr. Lisa Martinez ER URINE PROFILEon 2 Bilirubin Ql (U) Negative Normal NEGATIVE [facility] Comment on above: Performed By: #### C BC #### [facility] [address] [place] [address] Dr. Lisa Martinez Clarity (U) CLEAR Normal CLEAR [facility] Comment on above: Performed By: #### C BC #### [facility] [address] [place] [address] Dr. Lisa Martinez Color (U) LT. YELLOW Normal YELLOW [facility] Comment on above: Performed By: #### C BC #### [facility] [address] [place] [address] Dr. Lisa Martinez ERUAHD A micrscopic examina tion will be performed if indicated. Normal [facility] Comment on above: Performed By: #### C BC #### [facility] [address] [place] [address] Dr. Lisa Martinez Glucose Ql (U) Negative Normal NEGATIVE [facility] Comment on above: Performed By: #### C BC #### [facility] [address] [place] [address] Dr. Lisa Martinez Hemoglobin Ql (U) Negative Normal NEGATIVE [facility] Comment on above: Performed By: #### C BC #### [facility] [address] [place] [address] Dr. Lisa Martinez Ketones Ql (U) Negative Normal NEGATIVE [facility] Comment on above: Performed By: #### C BC #### [facility] [address] [place] [address] Dr. Lisa Martinez LEUKOCYTES Negative Normal NEGATIVE [facility] Comment on above: Performed By: #### C BC #### [facility] [address] [place] [address] Dr. Lisa Martinez Nitrite Ql (U) Positive Abnormal NEGATIVE [facility] Comment on above: Performed By: #### C BC #### [facility] [address] [place] [address] Dr. Lisa Martinez pH (U) 5.5 [pH] Normal 5-9 [facility] Comment on above: Performed By: #### C BC #### [facility] [address] [place] [address] Dr. Lisa Martinez SPEC GRAVITY 1.030 Abnormal 1.005-<=1.0 25 [facility] Comment on above: Performed By: #### C BC #### [facility] [address] [place] [address] Dr. Lisa Martinez UA PROTEIN Negative Normal NEGATIVE/ TRACE [facility] Comment on above: Performed By: #### C BC #### [facility] [address] [place] [address] Dr. Lisa Martinez UR MICRO IND INDICATED Normal [facility] Comment on above: Performed By: #### C BC #### [facility] [address] [place] [address] Dr. Lisa Martinez Urobilinogen Qn (U) 0.2 {Mike'U}/dL Normal 0.2 - 1. 0 [facility] Comment on above: Performed By: #### C BC #### [facility] [address] [place] [address] Dr. Lisa Martinez GLYCOHEMOGLOBIN A1Con 2021 ADA RECOMMENDATION SEE BELOW Normal [facility] Comment on above: Result Comment: ADA RECOMMENDED LIMIT 4.0 - 6.0 ADA THERAPEUTIC TARGET < 7.0 ACTION SUGGESTED > 7.0 Performed By: #### B FURNACE COMBUSTION TESTER, BMP #### [facility] [address] [place] [address] [address] Lisa Martinez Glucose [Mass/Vol] 154 mg/dL Normal [facility] Comment on above: Performed By: #### B FURNACE COMBUSTION TESTER, BMP #### [facility] [address] [place] [address] [address] Lisa Martinez HbA1c (Bld) [Mass fraction] 7.0 % Critically high 4.5-6.2 [facility] Comment on above: Performed By: #### B FURNACE COMBUSTION TESTER, BMP #### [facility] [address] [place] [address] [address] Lisa Martinez LACTATE/LACTIC ACIDon 2021 Lactate [Moles/Vol] 1.1 mmol/L Normal 0.4-1.9 [facility] Comment on above: Performed By: #### L ACT ####[facility] [address] [place] [address]Dr. Lisa Martinez LIPASEon 04-30-2022 Lipase [Catalytic activity/Vol] 53.0 U/L Critically low 73.0-393.0 [facility] Comment on above: Performed By: #### B FURNACE COMBUSTION TESTER, BMP #### [facility] [address] [place] [address] Dr. Lisa Martinez LIVER PROFILEon 04-30-2022 Albumin [Mass/Vol] 3.4 g/dL Normal 3.4-5.0 [facility] Comment on above: Performed By: #### U RCX #### [facility] [address] [place] [address] Dr. Lisa Martinez Albumin/Globulin [Mass ratio] 0.7 {ratio} Normal [facility] Comment on above: Performed By: #### U RCX #### [facility] [address] [place] [address] Dr. Lisa Martinez ALP [Catalytic activity/Vol] 110 U/L Normal 46-116 [facility] Comment on above: Performed By: #### U RCX #### [facility] [address] [place] [address] Dr. Lisa Martinez ALT [Catalytic activity/Vol] 20 U/L Normal 14-59 [facility] Comment on above: Performed By: #### U RCX #### [facility] [address] [place] [address] Dr. Lisa Martinez AST [Catalytic activity/Vol] 16 U/L Normal 15-37 [facility] Comment on above: Performed By: #### U RCX #### [facility] [address] [place] [address] Dr. Lisa Martinez BILI, CONJUGATED 0.2 mg/dL Normal 0.0-0.2 [facility] Comment on above: Performed By: #### U RCX #### [facility] [address] [place] [address] Dr. Lisa Martinez Bilirubin [Mass/Vol] 0.7 mg/dL Normal 0.2-1.0 [facility] Comment on above: Performed By: #### U RCX #### [facility] [address] [place] [address] Dr. Lisa Martinez Globulin (S) [Mass/Vol] 5.0 g/dL Normal [facility] Comment on above: Performed By: #### U RCX #### [facility] [address] [place] [address] Dr. Lisa Martinez Protein [Mass/Vol] 8.4 g/dL Critically high 6.4-8.[address] [facility] Comment on above: Performed By: #### U RCX #### [facility] [address] [place] [address] Dr. Lisa Martinez POINT OF CARE GLUCOSEon 10-2 Glucose [Mass/Vol] 203 mg/dL Critically high 74-[address] [facility] Comment on above: Performed By: #### B FURNACE COMBUSTION TESTER, BMP #### [facility] [address] [place] [address] Dr. Lisa Martinez Glucose [Mass/Vol] 174 mg/dL Critically high 74-[address] [facility] Comment on above: Performed By: #### C BC #### [facility] [address] [place] [address] Dr. Lisa Martinez Glucose [Mass/Vol] 149 mg/dL Critically high 74-106 [facility] Comment on above: Performed By: #### B LDCX2 #### [facility] [address] [place] [address] Dr. Lisa Martinez PROF CHEM 8 (BAS METB)on Anion gap [Moles/Vol] 15.3 mmol/L Normal [facility] Comment on above: Performed By: #### C BC #### [facility] [address] [place] [address] Dr. Lisa Martinez Calcium [Mass/Vol] 9.1 mg/dL Normal 8.5-10.1 [facility] Comment on above: Performed By: #### C BC #### [facility] [address] [place] [address] Dr. Lisa Martinez Chloride [Moles/Vol] 98 mmol/L Normal 98-107 [facility] Comment on above: Performed By: #### C BC #### [facility] [address] [place] [address] Dr. Lisa Martinez CO2 [Moles/Vol] 24.4 mmol/L Normal 21.0-32.0 [facility] Comment on above: Performed By: #### C BC #### [facility] [address] [place] [address] Dr. Lisa Martinez Creatinine [Mass/Vol] 1.44 mg/dL Critically high 0.55-1.02 [facility] Comment on above: Performed By: #### C BC #### [facility] [address] [place] [address] Dr. Lisa Martinez EGFR-AF HAITIAN 42 mL/min/1.73m2 Critically low >=60 [facility] Comment on above: Performed By: #### C BC #### [facility] [address] [place] [address] Dr. Lisa Martinez EGFR-NON AF HAITIAN 35 mL/min/1.73m2 Critically low >=60 [facility] Comment on above: Performed By: #### C BC #### [facility] [address] [place] [address] Dr. Lisa Martinez Glucose [Mass/Vol] 225 mg/dL Critically high 74-106 T [facility] Comment on above: Performed By: #### C BC #### [facility] [address] [place] [address] [address] Lisa Martinez Potassium [Moles/Vol] 4.7 mmol/L Normal 3.5-5.1 [facility] Comment on above: Performed By: #### C BC #### [facility] [address] [place] [address] [address] Lisa Martinez Sodium [Moles/Vol] 133 mmol/L Critically low 136-145 [facility] Comment on above: Performed By: #### C BC #### [facility] [address] [place] [address] Dr. Lisa Martinez Urea nitrogen [Mass/Vol] 37.0 mg/dL Critically high 7.0-18.0 [facility] Comment on above: Performed By: #### C BC #### [facility] [address] [place] [address] [address] Lisa Martinez Urea nitrogen/Creatinine [Mass ratio] 25.7 mg/mg Normal [facility] Comment on above: Performed By: #### C BC #### [facility] [address] [place] [address] Dr. Lisa Martinez PROTIMEon 04-30-2022 INR Coag (PPP) [Relative time] 1.02 {INR} Normal [facility] Comment on above: Performed By: #### K U #### [facility] [address] [place] [address] Dr. Lisa Martinez INR GUIDELINES SEE BELOW Normal [facility] Comment on above: Result Comment: ANTONY RED INR: 2.0 - 3.0 CONDITIONS NOT LISTED BELOW 2.5 - 3.5 FOR PROSTHETIC HEART VALVE REPLACEMENT 2.5 - 3.5 RECURRENT THROMBOSIS Performed By: #### K U #### [facility] [address] [place] [address] Dr. Lisa Martinez PT Coag (PPP) [Time] 11.0 s Normal 9.0-11.6 [facility] Comment on above: Performed By: #### K U #### [facility] [address] [place] [address] Dr. Lisa Martinez PTTon 04-30-2022 aPTT Coag (Bld) [Time] 27.5 s Normal 22.3-36.2 [facility] Comment on above: Performed By: #### K U #### [facility] [address] [place] [address] Dr. Lisa Martinez TROPONIN, HIGH SENSITIVITYon 04-30-2022 HSTROP 20.0 pg/mL Normal 4.0-51.3 [facility] Comment on above: Result Comment: CUT- OFF POINTS HAVE BEEN ESTABLISHED BASED ON THE FOURTH UNIVERSAL DEFINITIONS OF MYOCARDIAL INFARCTION. THE UPPER REFERENCE LIMIT (URL) OF TROPONIN, DEFINED THE 99TH PERCENTILE OF cTnI DISTRIBUTION IN A REFERENCE POPULATION, HAS BEEN CONFIRMED THE DECISION THRESHOLD FOR [place] DIAGNOSIS. Performed By: #### U RCX #### [facility] [address] [place] [address] Dr. Lisa Martinez URINE MICROSCOPIC ONLYon BACTERIA MODERATE Abnormal NONE SEEN [facility] Comment on above: Performed By: #### K U #### [facility] [address] [place] [address] Dr. Lisa Martinez Bacteria identified Cx Nom (U) INDICATED Normal [facility] Comment on above: Performed By: #### K U #### [facility] [address] [place] [address] Dr. Lisa Martinez CAST NONE SEEN Normal NONE SEEN [facility] Comment on above: Performed By: #### K U #### [facility] [address] [place] [address] Dr. Lisa Martinez Crystals LM Nom (Urine sed) NONE SEEN Normal NONE SEEN [facility] Comment on above: Performed By: #### K U #### [facility] [address] [place] [address] Dr. Lisa Martinez Epithelial cells LM Ql (Urine sed) RARE Normal NONE SEEN /RARE [facility] Comment on above: Performed By: #### K U #### [facility] [address] [place] [address] Dr. Lisa Martinez MUCOUS NONE SEEN Normal NONE SEEN [facility] Comment on above: Performed By: #### K U #### [facility] [address] [place] [address] Dr. Lisa Martinez RBC NONE SEEN Abnormal 0-2 [facility] Comment on above: Performed By: #### K U #### [facility] [address] [place] [address] Dr. Lisa Martinez WBC 0-2 Abnormal NONE SEEN [facility] Comment on above: Performed By: #### K U #### [facility] [address] [place] [address] Dr. Lisa Martinez XR CHEST 1 Von [...] MEENA HAWKINS Date: 2022-04-30 07:42 Normal [facility] FREE T3on 04-12-2022 FREE T3 2.10 pg/mlL Critically low 2.18-3.98 [facility] Comment on above: Performed By: #### C VDTBH #### [facility] [address] [place] [address] Dr. Lisa Martinez FREE T4on 04-12-2022 Free T4 [Mass/Vol] 0.88 ng/dL Normal 0.76-1.46 [facility] Comment on above: Performed By: #### B LDCX2 #### [facility] [address] [place] [address] Dr. Lisa Martinez TSHon 04-12-2022 TSH 5.007 uIU/mL Critically high 0.358-3.740 [facility] Comment on above: Performed By: #### C VDTBH #### [facility] [address] [place] [address] Dr. Lisa Martinez US THYROIDon 04-12-2022 US [...] MEENA HAWKINS Date: 2022-04-12 13:20 Normal [facility] CBC AUTO DIFFon 02-12-2022 BASO # 0.1 103/ul Normal 0.0-0.1 [facility] Comment on above: Performed By: #### K U #### [facility] [address] [place] [address] Dr. Lisa Martinez Basophils/100 WBC (Bld) 0.7 % Normal 0.2-2.0 [facility] Comment on above: Performed By: #### K U #### [facility] [address] [place] [address] Dr. Lisa Martinez EO # 0.3 103/ul Normal 0.0-0.7 [facility] Comment on above: Performed By: #### K U #### [facility] [address] [place] [address] Dr. Lisa Martinez Eosinophils/100 WBC (Bld) 3.3 % Normal 0.9-7.0 [facility] Comment on above: Performed By: #### K U #### [facility] [address] [place] [address] Dr. Lisa Martinez Erythrocyte distribution width (RBC) [Ratio] 13.0 % Normal 11.0-15.0 [facility] Comment on above: Performed By: #### K U #### [facility] [address] [place] [address] Dr. Lisa Martinez Hematocrit (Bld) [Volume fraction] 34.6 % Critically low 36.0-48.0 [facility] Comment on above: Performed By: #### K U #### [facility] [address] [place] [address] Dr. Lisa Martinez Hemoglobin (Bld) [Mass/Vol] 11.1 g/dL Critically low 12.0-16.0 [facility] Comment on above: Performed By: #### K U #### [facility] [address] [place] [address] Dr. Lisa Martinez IG # 0.04 10e3/ul Critically high 0.00-0.03 [facility] Comment on above: Performed By: #### K U #### [facility] [address] [place] [address] Dr. Lisa Martinez IG % 0.4 % Normal 0.0-0.5 [facility] Comment on above: Performed By: #### K U #### [facility] [address] [place] [address] Dr. Lisa Martinez LYMPH # 1.0 103/ul Critically low 1.2-3.8 [facility] Comment on above: Performed By: #### K U #### [facility] [address] [place] [address] Dr. Lisa Martinez Lymphocytes/100 WBC (Bld) 10.6 % Critically low 20.5-60.0 [facility] Comment on above: Performed By: #### K U #### [facility] [address] [place] [address] Dr. Lisa Martinez MANUAL DIFF REQ NO Normal [facility] Comment on above: Performed By: #### K U #### [facility] [address] [place] [address] Dr. Lisa Martinez MCH (RBC) [Entitic mass] 31.3 pg Normal 26.7-34.0 [facility] Comment on above: Performed By: #### K U #### [facility] [address] [place] [address] Dr. Lisa Martinez MCHC (RBC) [Mass/Vol] 32.1 g/dL Normal 29.9-35.2 [facility] Comment on above: Performed By: #### K U #### [facility] [address] [place] [address] Dr. Lisa Martinez MCV (RBC) [Entitic vol] 97.5 fL Normal 81.0-99.0 [facility] Comment on above: Performed By: #### K U #### [facility] [address] [place] [address] Dr. Lisa Martinez MONO # 0.9 103/ul Critically high 0.3-0.8 [facility] Comment on above: Performed By: #### K U #### [facility] [address] [place] [address] Dr. Lisa Martinez Monocytes/100 WBC (Bld) 9.5 % Normal 1.7-12.0 [facility] Comment on above: Performed By: #### K U #### [facility] [address] [place] [address] Dr. Lisa Martinez NEUT # 6.9 103/ul Critically high 1.4-6.5 [facility] Comment on above: Performed By: #### K U #### [facility] [address] [place] [address] Dr. Lisa Martinez Neutrophils/100 WBC (Bld) 75.5 % Critically high 43.0-75.0 [facility] Comment on above: Performed By: #### K U #### [facility] [address] [place] [address] Dr. Lisa Martinez Platelet mean volume (Bld) [Entitic vol] 9.9 fL Normal 9.5-13.5 [facility] Comment on above: Performed By: #### K U #### [facility] [address] [place] [address] Dr. Lisa Martinez PLT 255 103/ul Normal 150-450 [facility] Comment on above: Performed By: #### K U #### [facility] [address] [address] [address] Lisa Martinez RBC 3.55 106/ul Critically low 4.20-5.40 [facility] Comment on above: Performed By: #### K U #### [facility] [address] [address] [address] Lisa Martinez WBC 9.2 103/ul Normal 4.0-11.0 [facility] Comment on above: Performed By: #### K U #### [facility] [address] [place] [address] Dr. Lisa Martinez CRPon 02-12-2022 CRP 0.7 mg/dL Normal <=1.0 [facility] Comment on above: Performed By: #### B FURNACE COMBUSTION TESTER, BMP #### [facility] [address] [place] [address] Dr. Lisa Martinez SED RATE WESTERGRENon 2021 SED RATE 56 mm/hr Critically high <=30 [facility] Comment on above: Performed By: #### S EDR ####[facility] [address] [place], [place] [address]Dr. Lisa Martinez URIC ACID SERUMon 02-12-2022 Urate [Mass/Vol] 9.2 mg/dL Critically high 2.6-6.0 [facility] Comment on above: Performed By: #### B FURNACE COMBUSTION TESTER, BMP #### [facility] [address] [place] [address] Dr. Lisa Martinez XR FOOT LT MIN [...] ROSINA MENENDEZ Date: 2022-02-12 13:01 Normal [facility] HEMOGRAM AND PLATELon 2021 Hematocrit (Bld) [Volume fraction] 35.7 % Critically low 36.0-48.0 [facility] Comment on above: Performed By: #### U RCX #### [facility] [address] [place] [address] Dr. Lisa Martinez Hemoglobin (Bld) [Mass/Vol] 11.7 g/dL Critically low 12.0-16.0 [facility] Comment on above: Performed By: #### U RCX #### [facility] [address] [place] [address] Dr. Lisa Martinez MCH (RBC) [Entitic mass] 31.5 pg Normal 26.7-34.0 [facility] Comment on above: Performed By: #### U RCX #### [facility] [address] [place] [address] Dr. Lisa Martinez MCHC (RBC) [Mass/Vol] 32.8 g/dL Normal 29.9-35.2 [facility] Comment on above: Performed By: #### U RCX #### [facility] [address] [place] [address] Dr. Lisa Martinez MCV (RBC) [Entitic vol] 96.2 fL Normal 81.0-99.0 [facility] Comment on above: Performed By: #### U RCX #### [facility] [address] [place] [address] Dr. Lisa Martinez PLT 268 103/ul Normal 150-450 [facility] Comment on above: Performed By: #### U RCX #### [facility] [address] [place] [address] Dr. Lisa Martinez RBC 3.71 106/ul Critically low 4.20-5.40 [facility] Comment on above: Performed By: #### U RCX #### [facility] [address] [place] [address] Dr. Lisa Martinez WBC 9.3 103/ul Normal 4.0-11.0 [facility] Comment on above: Performed By: #### U RCX #### [facility] [address] [place] [address] Dr. Lisa Martinez PROF CHEM 8 (BAS METB)on Anion gap [Moles/Vol] 11.2 mmol/L Normal [facility] Comment on above: Performed By: #### C VDTBH #### [facility] [address] [address] [address] Lisa Martinez Calcium [Mass/Vol] 9.1 mg/dL Normal 8.5-10.1 [facility] Comment on above: Performed By: #### C VDTBH #### [facility] [address] [address] [address] Lisa Martinez Chloride [Moles/Vol] 104 mmol/L Normal 98-107 [facility] Comment on above: Performed By: #### C VDTBH #### [facility] [address] [place] [address] Dr. Lisa Martinez CO2 [Moles/Vol] 30.6 mmol/L Normal 21.0-32.0 [facility] Comment on above: Performed By: #### C VDTBH #### [facility] [address] [address] [address] Lisa Martinez Creatinine [Mass/Vol] 1.64 mg/dL Critically high 0.55-1.02 [facility] Comment on above: Performed By: #### C VDTBH #### [facility] [address] [place] [address] Dr. Lisa Martinez EGFR-AF HAITIAN 36 mL/min/1.73m2 Critically low >=60 [facility] Comment on above: Performed By: #### C VDTBH #### [facility] [address] [address] [address] Lisa Martinez EGFR-NON AF HAITIAN 30 mL/min/1.73m2 Critically low >=60 [facility] Comment on above: Performed By: #### C VDTBH #### [facility] [address] [address] [address] Lisa Martinez Glucose [Mass/Vol] 61 mg/dL Critically low 74-106 [facility] Comment on above: Performed By: #### C VDTBH #### [facility] [address] [place], [place] [address] Dr. Lisa Martinez Potassium [Moles/Vol] 4.8 mmol/L Normal 3.5-5.1 [facility] Comment on above: Performed By: #### C VDTBH #### [facility] [address] [place], [place] [address] Dr. Lisa Martinez Sodium [Moles/Vol] 141 mmol/L Normal 136-145 [facility] Comment on above: Performed By: #### C VDTBH #### [facility] [address] [address] [address] Lisa Martinez Urea nitrogen [Mass/Vol] 34.0 mg/dL Critically high 7.0-18.0 [facility] Comment on above: Performed By: #### C VDTBH #### [facility] [address] [address] [address] Lisa Martinez Urea nitrogen/Creatinine [Mass ratio] 20.7 mg/mg Normal [facility] Comment on above: Performed By: #### C VDTBH #### [facility] [address] [address] [address] Lisa Martinez Cardiovascular Lab Reporton 12-21-2021 Cardiovascular Lab Report [facility] Patient Name: Jenni Quinones [facility] MR #: [id number] Physician: Josefina Villanueva Department of [facility] Service Date: 12/20/2021 Division of Birthdate: 1940 Cardiology Room #: Adult Cardiovascular Services [address] [place] [address] Cardiovascular Laboratory Report INDICATION: The patient is [...] the consent. She was brought to the r&d lab technician in a fasting state. The right neck area was prepped and draped in usual fashion. Micropuncture technique and ultrasound guidance were used for access in the right internal jugular vein. A 6-Panamanian x 11 cm sheath was placed. A 6-Panamanian Becker catheter was used for right heart [...] Nova M.D. Date Trans: 12/21/2021 06:38 A/kali [id number] cc: Jasvir León M.D. [address] [facility] [id number] [place] [address] [facility]-07 SARS-CoV-2 (COVID-19) RNA RACIEL+probe Ql (Unsp spec) Not detected Normal NOT DETECTED [facility] Comment on above: Result Comment: This test is not yet approved or cleared by the [place] FDA. When there are no FDA-approved or cleared tests available, and other criteria are met, FDA can make tests available under an emergency access mechanism called an Emergency Use Authorization (EUA). The EUA for this test is supported by the Charge Master Specialist of Health and Human Service's (HHS's) [...] SARS-CoV-2. Performed By: #### K U #### [facility] [address] [address] [address] Lisa Martinez HEMOGRAM AND PLATELon 2021 Hematocrit (Bld) [Volume fraction] 37.7 % Normal 36.0-48.0 [facility] Comment on above: Performed By: #### H H ####[facility] [address] [id number] Martinez Hemoglobin (Bld) [Mass/Vol] 11.8 g/dL Critically low 12.0-16.0 [facility] Comment on above: Performed By: #### H H ####[facility] [address] [id number] Martinez MCH (RBC) [Entitic mass] 30.7 pg Normal 26.7-34.0 [facility] Comment on above: Performed By: #### H H ####[facility] [address] [id number] Martinez MCHC (RBC) [Mass/Vol] 31.3 g/dL Normal 29.9-35.2 [facility] Comment on above: Performed By: #### H H ####[facility] [address] [address]Dr. Lisa Martinez MCV (RBC) [Entitic vol] 98.2 fL Normal 81.0-99.0 [facility] Comment on above: Performed By: #### H H ####[facility] [address] [id number] Martinez PLT 238 103/ul Normal 150-450 [facility] Comment on above: Performed By: #### H H ####[facility] [address] [address]Dr. Lisa Martinez RBC 3.84 106/ul Critically low 4.20-5.40 [facility] Comment on above: Performed By: #### H H ####[facility] [address] [address]DrIngrid Martinez WBC 8.6 103/ul Normal 4.0-11.0 [facility] Comment on above: Performed By: #### H H ####[facility] [address] [id number] Martinez PROF CHEM 8 (BAS METB)on Anion gap [Moles/Vol] 13.7 mmol/L Normal [facility] Comment on above: Performed By: #### B MP ####[facility] [address] [address]DrIngrid Martinez Calcium [Mass/Vol] 9.1 mg/dL Normal 8.5-10.1 [facility] Comment on above: Performed By: #### B MP ####[facility] [address] [address]DrIngrid Martinez Chloride [Moles/Vol] 107 mmol/L Normal 98-107 [facility] Comment on above: Performed By: #### B MP ####[facility] [address] [address]DrIngrid Martinez CO2 [Moles/Vol] 26.9 mmol/L Normal 21.0-32.0 [facility] Comment on above: Performed By: #### B MP ####[facility] [address] [address]Dr. Lisa Juan Creatinine [Mass/Vol] 1.48 mg/dL Critically high 0.55-1.02 [facility] Comment on above: Performed By: #### B MP ####[facility] [address] [address]Dr. Lisa Martinez EGFR-AF HAITIAN 41 mL/min/1.73m2 Critically low >=60 [facility] Comment on above: Performed By: #### B MP ####[facility] [address] [address]Dr. Lisa Martinez EGFR-NON AF HAITIAN 34 mL/min/1.73m2 Critically low >=60 [facility] Comment on above: Performed By: #### B MP ####[facility] [address] [place], [place] [address]Dr. Lisa Martinez Glucose [Mass/Vol] 161 mg/dL Critically high 74-[address] [facility] Comment on above: Performed By: #### B MP ####[facility] [address] [place], [place] [address]Dr. Lisa Martinez Potassium [Moles/Vol] 4.6 mmol/L Normal 3.5-5.1 [facility] Comment on above: Performed By: #### B MP ####[facility] [address] [address]Dr. Lisa Martinez Sodium [Moles/Vol] 143 mmol/L Normal 136-145 [facility] Comment on above: Performed By: #### B MP ####[facility] [address] [address]Dr. Lisa Martinez Urea nitrogen [Mass/Vol] 35.0 mg/dL Critically high 7.0-18.0 [facility] Comment on above: Performed By: #### B MP ####[facility] [address] [place], [place] [id number]. Lisa Martinez Urea nitrogen/Creatinine [Mass ratio] 23.6 mg/mg Normal [facility] Comment on above: Performed By: #### B MP ####[facility] [address] [place], [place] [address]ZwIngrid [address] [facility] Metabolic Pane yesica 08-17-2021 Albumin [Mass/Vol] 4.4 g/dL Normal 3.6-5.1 [facility] Comment on above: Performed By: #### C MP #### [facility] [address], [place] [id number] Albumin/Globulin [Mass ratio] 1.4 {ratio} Normal 1.0-2.5 [facility] Comment on above: Performed By: #### C MP #### [facility] [address], [place] [id number] ALP [Catalytic activity/Vol] 89 U/L Normal 35-119 [facility] Comment on above: Performed By: #### C MP #### [facility] [address], [place] [id number] ALT [Catalytic activity/Vol] 13 U/L Normal 6-33 [facility] Comment on above: Result Comment: 06/08 Female reference range changed. Performed By: #### C MP #### [facility] [address], [place] [id number] Anion gap [Moles/Vol] 18 mmol/L Normal 12-20 [facility] Comment on above: Result Comment: Effe ctive 07/14/2019 reference range changed. Performed By: #### C MP #### [facility] [address], [place] [id number] AST [Catalytic activity/Vol] 20 U/L Normal 9-34 [facility] Comment on above: Performed By: #### C MP #### [facility] [address], [place] [id number] Bilirubin [Mass/Vol] 0.34 mg/dL Normal 0.30-1.20 [facility] Comment on above: Performed By: #### C MP #### [facility] [address], [place] [id number] BUN/CREA 28 Ratio High 6-22 [employer] Comment on above: Performed By: #### C MP #### [facility] [address], [place] [id number] Calcium [Mass/Vol] 9.8 mg/dL Normal 8.6-10.2 [facility] Specialist Comment on above: Performed By: #### C MP #### [facility] [address], [place] [id number] Chloride [Moles/Vol] 106 mmol/L Normal 98-107 [facility] Comment on above: Performed By: #### C MP #### [facility] [address], [place] [id number] CO2 [Moles/Vol] 23 mmol/L Normal 20-31 [facility] Comment on above: Performed By: #### C MP #### [facility] [address], [place] [id number] Creatinine [Mass/Vol] 1.1 mg/dL Normal 0.6-1.4 [facility] Comment on above: Performed By: #### C MP #### [facility] [address], [place] [id number] eGFRAA 59 mL/min/1.73m2 Low >60 [facility] Comment on above: Performed By: #### C MP #### [facility] [address], [place] [id number] eGFRNAA 49 mL/min/1.73m2 Low >60 [facility] Comment on above: Performed By: #### C MP #### [facility] [address], [place] [id number] Globulin (S) [Mass/Vol] 3.2 g/dL Normal 1.9-3.7 [facility] Comment on above: Performed By: #### C MP #### [facility] [address], [place] [id number] Glucose [Mass/Vol] 51 mg/dL Low 65-99 [facility] [employer] Comment on above: Result Comment: For FASTING Glucose --- ADA reference ranges: Normal 65-99 mg/dl Prediabetes 100-125 Diabetes >/= 126 Performed By: #### C MP #### [facility] [address], [place] [id number] Potassium [Moles/Vol] 4.5 mmol/L Normal 3.5-5.5 [facility] Comment on above: Performed By: #### C MP #### [facility] [address], [place] [id number] Protein [Mass/Vol] 7.6 g/dL Normal 6.1-8.1 [facility] [employer] Comment on above: Performed By: #### C MP #### [facility] [address], [place] [id number] Sodium [Moles/Vol] 143 mmol/L Normal 135-146 [facility] [employer] Comment on above: Performed By: #### C MP #### [facility] [address], [place] [id number] Urea nitrogen [Mass/Vol] 31 mg/dL High 7-25 [facility] Special[facility] Comment on above: Performed By: #### C MP #### [facility] [address], [place] [id number] Complete Blood Counton 08-03 Erythrocyte distribution width (RBC) [Ratio] 13.2 % Normal 11.0-15.0 [facility] Comment on above: Performed By: #### C BC, TSH, FT3, FT4, CMP #### [facility] [address], [place] [id number] Hematocrit (Bld) [Volume fraction] 36.6 % Normal 35.0-47.0 [facility] Comment on above: Performed By: #### C BC, TSH, FT3, FT4, CMP #### [facility] [address], [place] [id number] Hemoglobin (Bld) [Mass/Vol] 11.4 g/dL Low 11.6-15.5 [facility] Comment on above: Performed By: #### C BC, TSH, FT3, FT4, CMP #### [facility] [address], [place] [id number] MCH (RBC) [Entitic mass] 31.1 pg Normal 27.0-33.0 [facility] [employer] Comment on above: Performed By: #### C BC, TSH, FT3, FT4, CMP #### [facility] [address], [place] [id number] MCHC (RBC) [Mass/Vol] 31.1 g/dL Low 32.0-36.0 [facility] Comment on above: Performed By: #### C BC, TSH, FT3, FT4, CMP #### [facility] [address], [place] [id number] MCV (RBC) [Entitic vol] 100 fL Normal 80-100 [facility] Specialist Comment on above: Performed By: #### C BC, TSH, FT3, FT4, CMP #### [facility] [address], [place] [id number] Platelet mean volume (Bld) [Entitic vol] 10.10 fL Normal 7.50-12.50 [facility] Comment on above: Performed By: #### C BC, TSH, FT3, FT4, CMP #### [facility] [address], [place] [id number] Platelets (Bld) [#/Vol] 245 10*3/uL Normal 140-400 [facility] Comment on above: Performed By: #### C BC, TSH, FT3, FT4, CMP #### [facility] [address], [place] [id number] RBC (Bld) [#/Vol] 3.66 10*6/uL Low 3.90-5.20 [facility] Comment on above: Performed By: #### C BC, TSH, FT3, FT4, CMP #### [facility] [address], [place] [id number] RDW-SD 48.1 fL Normal 37.0-50.0 [facility] Comment on above: Performed By: #### C BC, TSH, FT3, FT4, CMP #### [facility] [address], [place] [id number] WBC (Bld) [#/Vol] 8.7 10*3/uL Normal 3.8-11.0 [facility] Comment on above: Performed By: #### C BC, TSH, FT3, FT4, CMP #### [facility] [address], [place] [id number] Comprehensive Metabolic Pane yesica 08-03-2021 Albumin [Mass/Vol] 3.9 g/dL Normal 3.6-5.1 [facility] Comment on above: Performed By: #### C BC, TSH, FT3, FT4, CMP #### [facility] [address], [place] [id number] Albumin/Globulin [Mass ratio] 1.1 {ratio} Normal 1.0-2.5 [facility] Comment on above: Performed By: #### C BC, TSH, FT3, FT4, CMP #### [facility] [address], [place] [id number] ALP [Catalytic activity/Vol] 105 U/L Normal 35-119 [facility] Comment on above: Performed By: #### C BC, TSH, FT3, FT4, CMP #### [facility] [address], [place] [id number] ALT [Catalytic activity/Vol] 10 U/L Normal 6-33 [facility] Comment on above: Result Comment: 06/08 Female reference range changed. Performed By: #### C BC, TSH, FT3, FT4, CMP #### [facility] [address], [place] [id number] Anion gap [Moles/Vol] 20 mmol/L Normal 12-20 [facility] Comment on above: Result Comment: Effe ctive 07/14/2019 reference range changed. Performed By: #### C BC, TSH, FT3, FT4, CMP #### [facility] [address], [place] [id number] AST [Catalytic activity/Vol] 19 U/L Normal 9-34 [facility] Specialist Comment on above: Performed By: #### C BC, TSH, FT3, FT4, CMP #### [facility] [address], [place] [id number] BUN/CREA 24 Ratio High 6-22 [facility] Comment on above: Performed By: #### C BC, TSH, FT3, FT4, CMP #### [facility] [address] [place], [place] [id number] Calcium [Mass/Vol] 9.6 mg/dL Normal 8.6-10.2 [facility] [employer] Comment on above: Performed By: #### C BC, TSH, FT3, FT4, CMP #### [facility] [address] [place], [place] [id number] Chloride [Moles/Vol] 106 mmol/L Normal 98-107 [facility] Comment on above: Performed By: #### C BC, TSH, FT3, FT4, CMP #### [facility] [address] [place], [place] [id number] CO2 [Moles/Vol] 21 mmol/L Normal 20-31 [facility] Comment on above: Performed By: #### C BC, TSH, FT3, FT4, CMP #### [facility] [address] [facility] [place] [id number] Creatinine [Mass/Vol] 2.6 mg/dL High 0.6-1.4 [facility] Comment on above: Performed By: #### C BC, TSH, FT3, FT4, CMP #### [facility] [address] [place], [place] [id number] eGFRAA 22 mL/min/1.73m2 Low >60 [facility] Specialist Comment on above: Performed By: #### C BC, TSH, FT3, FT4, CMP #### [facility] [address] [place], [place] [id number] eGFRNAA 18 mL/min/1.73m2 Low >60 [facility] Specialist Comment on above: Performed By: #### C BC, TSH, FT3, FT4, CMP #### [facility] [address] [place], [place] [id number] Globulin (S) [Mass/Vol] 3.4 g/dL Normal 1.9-3.7 [facility] Comment on above: Performed By: #### C BC, TSH, FT3, FT4, CMP #### [facility] [address] [place], [place] [id number] Glucose [Mass/Vol] 93 mg/dL Normal 65-99 [facility] Software Architect Comment on above: Result Comment: For FASTING Glucose --- ADA reference ranges: Normal 65-99 mg/dl Prediabetes 100-125 Diabetes >/= 126 Performed By: #### C BC, TSH, FT3, FT4, CMP #### [facility] [address], [place] [id number] Potassium [Moles/Vol] 6.9 mmol/L Critically high 3.5-5.5 [facility] Software Architect Comment on above: Result Comment: Repo rt given to Dr León (Ragini) Performed By: #### C BC, TSH, FT3, FT4, CMP #### [facility] [address], [place] [id number] Protein [Mass/Vol] 7.3 g/dL Normal 6.1-8.1 [facility] [place] Software Architect Comment on above: Performed By: #### C BC, TSH, FT3, FT4, CMP #### [facility] [address], [place] [id number] Sodium [Moles/Vol] 139 mmol/L Normal 135-146 [facility] [employer] Architect Comment on above: Performed By: #### C BC, TSH, FT3, FT4, CMP #### [facility] [address], [place] [id number] TBIL <0.3 Normal [facility] [employer] Architect Comment on above: Performed By: #### C BC, TSH, FT3, FT4, CMP #### [facility] [address], [place] [id number] Urea nitrogen [Mass/Vol] 62 mg/dL High 7-25 [facility] [employer] Comment on above: Performed By: #### C BC, TSH, FT3, FT4, CMP #### [facility] [address], [place] [id number] Free T3on 08-03-2021 FT3 2.05 pg/mL Normal 2.00-4.40 [facility] [employer] Comment on above: Performed By: #### C BC, TSH, FT3, FT4, CMP #### [facility] [address] [place], [place] [id number] Free T4on 01-26-2022 Free T4 [Mass/Vol] 0.91 ng/dL Normal 0.80-1.80 [facility] Software [employer] Comment on above: Performed By: #### C BC, TSH, FT3, FT4, CMP #### [facility] [address] [place], [place] [id number] Q - B-TYPE NATRIURETIC (BNP) on 08-03-2021 Natriuretic peptide B (Bld) [Mass/Vol] 283 pg/mL High <100 [facility] Software Architect Comment on above: Order Comment: [facility] Testing performed at: [employer] [facility], [address], [address] [place], [address], Tile Helper: Boone Calderón MD [facility] Collection Date/Time: [id number] [facility] Results Received Date/Time: [facility] Reported Date/Time: Result Comment: BNP levels increase with age in the general population with the highest values seen in individuals greater than 75 years of age. Reference: J. Am. Priya. Cardiol. 2002; 40:976-982. Performed By: #### [id number] #### [facility] Default [address] [place] [address] TSHon 08-03-2021 TSH 3.450 uIU/mL Normal 0.400-4.500 [facility] Software Architect Comment on above: Performed By: #### C BC, TSH, FT3, FT4, CMP #### [facility] [address] [place], [place] [id number] COVID Quick Testingon 2020 Result Negative [employer] Other Quick Fluon 06-06-2021 FLUAV Ab CF (S) [Titer] Negative [employer] Other FLUBV Ab CF (S) [Titer] Negative [employer] Other Vital Signs Date Time Vital Sign Value Performing Clinician Facility 08-27-2024 10:45-0500 Body height 154.9 cm Jasvir León MD Work Phone: [facility] 08-27-2024 10:45-0500 Body mass index (BMI) [Ratio] 25.7 kg/m2 Jasvir León MD Work Phone: [facility] 08-27-2024 10:45-0500 Body weight 61.69 kg Jasvir León MD Work Phone: [facility] 08-27-2024 10:45-0500 Diastolic blood pressure 70 mm[Hg] Jasvir León MD Work Phone: [facility] 08-27-2024 10:45-0500 Heart rate 72 /min Jasvir León MD Work Phone: [facility] 08-27-2024 10:45-0500 SaO2% (BldA) [Mass fraction] 96 % Jasvir León MD Work Phone: [facility] 08-27-2024 10:45-0500 Systolic blood pressure 116 mm[Hg] Jasvir León MD Work Phone: [facility] 08-20-2024 14:12-0500 Body height 154.9 cm Rosina Hemmer PA Work Phone: [facility] 08-20-2024 14:12-0500 Body mass index (BMI) [Ratio] 25.73 kg/m2 Rosina Hemmer PA Work Phone: [facility] 08-20-2024 14:12-0500 Body temperature 98.01 [degF] Rosina Hemmer PA Work Phone: [facility] 08-20-2024 14:12-0500 Body weight 61.78 kg Rosina Hemmer PA Work Phone: [facility] 08-20-2024 14:12-0500 Diastolic blood pressure 76 mm[Hg] Rosina Hemmer PA Work Phone: [facility] 08-20-2024 14:12-0500 Heart rate 73 /min Rosina Hemmer PA Work Phone: [facility] 08-20-2024 14:12-0500 Respiratory rate 16 /min Rosina Hemmer PA Work Phone: [facility] 08-20-2024 14:12-0500 SaO2% (BldA) [Mass fraction] 97 % Rosina GREER Work Phone: [facility] 08-20-2024 14:12-0500 Systolic blood pressure 122 mm[Hg] Rosina GREER Work Phone: [facility] 05-08-2024 11:16-0400 Body height 154.9 cm Jasvir León MD Work Phone: [facility] 05-08-2024 11:16-0400 Body mass index (BMI) [Ratio] 27.78 kg/m2 Jasvir León MD Work Phone: [facility] 05-08-2024 11:16-0400 Body weight 66.68 kg Jasvir León MD Work Phone: [facility] 05-08-2024 11:16-0400 Diastolic blood pressure 70 mm[Hg] Jasvir León MD Work Phone: [facility] 05-08-2024 11:16-0400 Heart rate 58 /min Jasvir León MD Work Phone: [facility] 05-08-2024 11:16-0400 SaO2% (BldA) [Mass fraction] 96 % Jasvir León MD Work Phone: [facility] 05-08-2024 11:16-0400 Systolic blood pressure 128 mm[Hg] Jasvir León MD Work Phone: [facility] 04-25-2024 16:40-0400 Body height 157.48 cm II Jasvir León Work Phone: [facility] 04-25-2024 13:31-0400 Diastolic blood pressure 69 mm[Hg] II Jasvir León Work Phone: [facility] 04-25-2024 13:31-0400 Heart rate 76 /min II Jasvir León Work Phone: [facility] 04-25-2024 13:31-0400 Systolic blood pressure 157 mm[Hg] II Jasvir León Work Phone: [facility] 04-25-2024 12:00-0400 Inhaled oxygen flow rate 3 L/min II Jasvir León Work Phone: [facility] 04-25-2024 08:00-0400 Body temperature 97.7 [degF] II Jasvir León Work Phone: [facility] 04-25-2024 08:00-0400 Respiratory rate 22 /min II Jasvir León Work Phone: [facility] 04-25-2024 08:00-0400 SaO2% (BldA) [Mass fraction] 98 % II Jasvir León Work Phone: [facility] 04-25-2024 02:25-0400 Body weight 75.2 kg II Jasvir León Work Phone: [facility] 08-07-2023 10:53-0500 Diastolic blood pressure 64 mm[Hg] Kd Hines MD Work Phone: [facility] 08-07-2023 10:53-0500 Heart rate 109 /min Kd Hines MD Work Phone: [facility] 08-07-2023 10:53-0500 Respiratory rate 18 /min Kd Hines MD Work Phone: [facility] 08-07-2023 10:53-0500 SaO2% (BldA) [Mass fraction] 90 % Kd Hines MD Work Phone: [facility] 08-07-2023 10:53-0500 Systolic blood pressure 94 mm[Hg] Kd Hines MD Work Phone: [facility] 06-06-2021 12:45-0500 Body height 157.48 cm Mariam Ward Other [employer] Other 06-06-2021 12:45-0500 Body mass index (BMI) [Ratio] 34.75 kg/m2 Mariam Ward Other [employer] Other 06-06-2021 12:45-0500 Body temperature 96.8 [degF] Mariam Ginty Other [employer] Other 06-06-2021 12:45-0500 Body weight 86.18 kg Mariam Ginty Other [employer] Other 06-06-2021 12:45-0500 Diastolic blood pressure 78 mm[Hg] Mariam Ginty Other [employer] Other 06-06-2021 12:45-0500 SaO2% (BldA) [Mass fraction] 94 % Mariam Ginty Other [employer] Other 06-06-2021 12:45-0500 Systolic blood pressure 131 mm[Hg] Mariam Ginty Other [employer] Other Encounters Encounter Date Encounter Type Care Provider Facility Start: 08-27-2024 End: 08-27-2024 Bamboo flowsheet Jasvir León MD Work Phone: [facility] Start: 08-27-2024 End: 08-27-2024 Bamboo flowsheet Jasvir León MD Work Phone: [facility] Start: 08-27-2024 End: 08-27-2024 Office outpatient visit 25 minutes Jasvir León MD Work Phone: [facility] Comment on above: 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 (CMS/HCC) (Primary Dx); Spinal stenosis at L4-L5 level; Chronic a-fib (CMS/HCC); Stage 3b chronic kidney disease (HCC) (CMS/HCC) Start: 08-27-2024 End: 08-27-2024 ambulatory JASVIR LEÓN Not Available Start: 08-20-2024 End: 08-20-2024 Bamboo flowsheet Rosina GREER Work Phone: [facility] Start: 08-20-2024 End: 08-20-2024 Bamboo flowsheet Rosina GREER Work Phone: [facility] Start: 08-20-2024 End: 08-20-2024 Transitional care manage srvc 7 day discharge Rosina GREER Work Phone: [facility] Comment on above: Gastroenteritis (Marcy kit Dx); Diabetes mellitus with peripheral vascular disease ([facility]); NSTEMI (non-ST elevated myocardial infarction) ([facility]/HCC); Chronic hypoxic respiratory failure ([facility]/HCC); Chronic diastolic congestive heart failure ([facility]/HCC); Mass of left lung; Oxygen dependent; Anxiety; Chronic a-fib ([facility]/HCC); Type 2 diabetes mellitus with stage 3b chronic kidney disease, with long-term current use of insulin (HCC) ([facility]); Discomfort of left ear; Chronic kidney disease, stage 3b (HCC) ([facility]); Chronic obstructive pulmonary disease, unspecified ([facility]); Panlobular emphysema ([facility]/HCC) Start: 08-20-2024 End: 08-20-2024 ambulatory ROSINA HARDWICK Not Available Start: 08-15-2024 End: 08-17-2024 Clinisync Result Encounter Generic External Data Provider [facility] Department Unsolicited Start: 08-15-2024 End: 08-17-2024 Clinisync Result Encounter Generic External Data Provider [facility] External Department Unsolicited Start: 07-25-2024 End: 07-25-2024 ambulatory [facility] Start: 07-22-2024 End: 07-22-2024 Clinisync Result Encounter Generic External Data Provider [facility] External Department Unsolicited Start: 07-22-2024 End: 07-22-2024 Clinisync Result Encounter Generic External Data Provider [facility] External Department Unsolicited Start: 07-11-2024 End: 07-11-2024 ambulatory HOMA CHAVARRIA [facility] Start: 06-26-2024 End: 06-27-2024 Refill Bev Mejia LPN [facility] Comment on above: Spinal stenosis at L 4-L5 level Start: 06-23-2024 End: 06-23-2024 Clinisync Result Encounter Generic External Data Provider [facility] Department Unsolicited Start: 06-23-2024 End: 06-23-2024 Clinisync Result Encounter Generic External Data Provider [facility] External Department Unsolicited Start: 06-23-2024 End: 06-23-2024 Refill Bev Sethenedelia [facility] Comment on above: Depression with anxi ety; Anxiety Start: 06-11-2024 Evaluation and manag ement of inpatient [facility] Start: 06-11-2024 Evaluation and manag ement of inpatient [facility] Start: 06-10-2024 Evaluation and manag ement of inpatient [facility] Start: 06-10-2024 End: 06-11-2024 Evaluation and management of inpatient [facility] Start: 06-10-2024 End: 06-10-2024 ambulatory [facility] Start: 06-02-2024 End: 06-02-2024 Clinisync Result Encounter Generic External Data Provider [facility] External Department Unsolicited Start: 06-02-2024 End: 06-02-2024 Clinisync Result Encounter Generic External Data Provider [facility] External Department Unsolicited Start: 06-02-2024 End: 06-02-2024 ambulatory [facility] Start: 05-29-2024 ambulatory [facility] Start: 05-29-2024 End: 05-29-2024 ambulatory HOMA [facility] Start: 05-29-2024 End: 05-29-2024 ambulatory HOMA [facility] Start: 05-27-2024 End: 05-27-2024 ambulatory [facility] Start: 05-26-2024 End: 05-26-2024 Clinisync Result Encounter Generic External Data Provider [facility] External Department Unsolicited Start: 05-26-2024 End: 05-26-2024 Clinisync Result Encounter Generic External Data Provider [facility] External Department Unsolicited Start: 05-13-2024 End: 05-13-2024 ambulatory BRENT ZAIDI [facility] Start: 05-08-2024 End: 05-08-2024 Bamboo flowsheet Jasvir León MD Work Phone: [facility] Start: 05-08-2024 End: 05-08-2024 Bamo flowsheet Jasvir León MD Work Phone: [facility] [...] of inpatient II Jasvir León Work Phone: [facility] Work Phone: Start: 03-17-2024 End: 03-17-2024 Telephone encounter Jasvir León MD Work Phone: [facility] Comment on above: covid Start: 02-18-2024 End: 02-18-2024 ambulatory JASVIR LEÓN Not Available Start: 01-07-2024 End: 01-07-2024 ambulatory JOSEFINA NOVA [facility] Start: 12-26-2023 End: 12-26-2023 ambulatory JASVIR LEÓN Not Available Start: 12-07-2023 End: 12-07-2023 ambulatory FARZANEH ARNDT [facility] Start: 10-09-2023 End: 10-09-2023 ambulatory SARAH RODRIGUEZ Not Available Start: 08-07-2023 End: 08-07-2023 ambulatory KD Partida [facility] Start: 08-07-2023 End: 08-07-2023 Subsequent hospital visit by physician Kd Hines MD Work Phone: [facility] Start: 05-29-2023 End: 05-29-2023 ambulatory KD Partida [facility] Start: 05-09-2023 ambulatory JASVIR LEÓN [facility] Start: 05-09-2023 End: 05-09-2023 ambulatory KD Helga [facility] Start: 12-06-2022 ambulatory [facility] Facility :[facility]1 Start: 11-13-2022 End: 11-15-2022 Evaluation and management of inpatient DR JASVIR LEÓN Facility:[facility] Start: 10-18-2022 End: 10-19-2022 ambulatory BRENT ZAIDI Facility:[facility] Start: 10-06-2022 End: 10-08-[address] ROBERTO IZMMERMAN . Facility:[facility] Start: 07-12-[address] ROBERTO [...] Encounter for preprocedural laboratory examination GRETTA OMALLEY [facility] Start: 12-20-2021 End: 12-21-2021 ambulatory GRETTA OMALLEY Facility:[facility] Start: 12-16-2021 End: 12-17-2021 ambulatory GRETTA OMALLEY Facility:[facility]1 Start: 12-16-2021 End: 12-17-2021 Encounter for preprocedural laboratory examination GRETTA OMALLEY Facility:[facility] Start: 06-06-2021 End: 06-06-2021 ambulatory Mariam Ward Other [facility] [employer] Other Start: 06-06-2021 Office outpatient vi sit 15 minutes Mariam Ward [facility] [place] Procedures Date Procedure Procedure Detail Performing Clinician Start: 08-20-2024 Hemoglobin glycosyla paige a1c Rosina GREER Work Phone: Start: 08-15-2024 E COLI SHIGA TOXIN EIA Generic External Data Provider Start: 07-22-2024 ALL BASIC METABOLIC PANEL Generic External Data Provider Start: 06-23-2024 ALL CBC WITH AUTO DIFF Generic External Data Provider Start: 06-02-2024 [facility] CMP (CMP) (FOR REMOTE [facility] USE) Generic External Data Provider Start: 05-26-2024 [...] 07-30-2025 Glaucoma screening Diabetes: R etinopathy Screening [facility] Start: 11-19-2024 End: 11-19-2024 Patient encounter procedure 11/19/2024 11:00 AM EDT Office Visit [facility] [address] [place] [address] Ariel Foss MD [address] [place] [address] [facility] Start: 11-17-2024 Hemoglobin A1c measurement Diabetes: Hemoglobin A1C [facility] Start: 10-27-2024 End: 10-27-2024 Patient encounter procedure 10/27/2024 10:30 AM EDT Office Visit [facility] [address] [place] [address] Jasvir León MD [address] [place] [address] [facility] Start: 08-27-2024 End: 08-27-2024 Patient encounter procedure [facility] Comment on above: Arrived Start: 08-20-2024 End: 08-20-2025 Basic metabolic 1998 panel - Serum or Plasma Basic metabolic panel Lab Routine Type 2 diabetes mellitus with stage 3b chronic kidney disease, with long-term current use of insulin ([facility]) ([facility]) Expected: 08/20/2024 (Approximate), Expires: 08/20/2025 [facility] Work Phone: Comment on above: Expected: 08/20/2024 (Approximate), Expires: 08/20/2025 Start: 08-20-2024 End: 08-20-2025 Natriuretic peptide B [Mass/volume] in Blood B-type natriuretic peptide Lab Routine Chronic diastolic congestive heart failure ([facility]) Expected: 08/20/2024 (Approximate), Expires: 08/20/2025 [facility] Comment on above: Expected: 08/20/2024 (Approximate), Expires: 08/20/2025 Start: 08-20-2024 End: 08-20-2024 Patient encounter procedure 08/20/2024 2:00 PM EST Office Visit [facility] [address] [place] [address] Rosina Hardwick PA [address] [place] [address] Arrived [facility] Comment on above: Arrived Start: 08-02-2024 Urine screening for protein Diabetes: Urine Protein Screening [facility] Start: 06-09-2024 End: 06-09-2024 Patient encounter procedure 06/09/2024 11:30 AM EST Office Visit [facility] [address] [place] [address] Jasvir León MD [address] [facility] [address] [place] [address] [facility] Start: 05-19-2024 End: 05-19-2024 Patient encounter procedure 05/19/2024 10:45 AM EST Office Visit [facility] [address] [facility] [address] [place] [id number] Jasvir León MD [address] [facility] [address] [place] [address] [facility] Start: 05-08-2024 End: 05-08-2024 Patient encounter procedure [facility] Comment on above: Arrived Start: 04-25-2024 [facility] Start: 04-25-2024 Radionuclide myocard ial perfusion stress study NM lissy perf SPECT rest & str [facility] Start: 04-25-2024 Catheterization of l eft heart CL *Left Heart Cath (LHC) [facility] Start: 04-25-2024 Hospital admission [facility] Start: 03-27-2024 Hemoglobin A1c measurement Diabetes: Hemoglobin A1C [facility] Start: 03-09-2024 Influenza vaccination Influenza Vacc ine (#1) [facility] Start: 11-14-2023 Urine screening for protein Diabetes: Urine Protein Screening [facility] Start: 08-07-2023 End: 08-07-2023 Njx dx/ther agt pvrt facet jt lmbr/sac 1 level LUMBAR MEDIAL BRANCH BLOCK Lumbar spondylosis 08/07/2023 10:37 AM [facility] Start: 08-07-2023 End: 08-07-2023 Njx dx/ther agt pvrt facet jt lmbr/sac 2nd level LUMBAR MEDIAL BRANCH BLOCK Lumbar spondylosis 08/07/2023 10:37 AM [facility] Start: 06-04-2023 Annual Wellness Visi t (Medicare) Annual Wellness Visit (Medicare) [facility] Start: 1999 Respiratory Syncytia l Virus (RSV) or age 60 yrs+ (1 - 1-dose 60+ series) Respiratory Syncytial Virus (RSV) or age 60 yrs+ (1 - 1-dose 60+ series) [facility] Start: 1958 DTaP/Tdap/Td vaccine (1 - Tdap) DTaP/Tdap/Td vaccine (1 - Tdap) [facility] Start: 1951 Depression Screen Depression Screen [facility] Start: 1949 Lipid panel Lipids [facility] Oxygen therapy [[facility] Data Set] Initiate Oxygen Therapy Protocol Respiratory Care Routine As Needed until discontinued starting 08/07/2023 [facility] Work Phone: Comment on above: As Needed until disc ontinued starting 08/07/2023 Patient referral [facility] Work Phone: Immunizations Immunization Date Immunization Notes Care Provider [facility] 04-12-2024 pneumococcal polysaccharide vaccine, 23 valent Generic Provider [facility] 04-12-2024 Seasonal trivalent influenza vaccine, adjuvanted, preservative free Generic Provider [facility] 09-11-2023 zoster vaccine recombinant Jasvir León MD Work Phone: [facility] 06-06-2023 zoster vaccine recombinant Jasvir León MD Work Phone: [facility] 05-21-2023 Pfizer Coleman Cap SARS-CoV-2 Vaccination Jasvir León MD Work Phone: [facility] Work Phone: 05-13-2023 Influenza, Seasonal, Quadrivalent, Adjuvanted Jasvir León MD Work Phone: [facility] 05-13-2023 influenza virus vaccine, unspecified formulation Jasvir León MD Work Phone: [facility] 05-16-2021 SARS-CoV-2, Unspecified Lexa León MD Work Phone: [facility] 04-29-2021 influenza, high dose seasonal, preservative-free Jasvir León MD Work Phone: [facility] 04-29-2021 Influenza, Seasonal, Quadrivalent, Adjuvanted Jasvir León MD Work Phone: [facility] 08-29-2020 SARS-CoV-2, Unspecified Lexa León MD Work Phone: [facility] 07-31-2020 SARS-CoV-2, Unspecified Leax León MD Work Phone: [facility] 03-22-2020 influenza, injectabl e, quadrivalent, preservative free Jasvir León MD Work Phone: [facility] 06-12-2019 zoster vaccine recombinant Jasvir León MD Work Phone: [facility] 03-20-2019 Seasonal trivalent influenza vaccine, adjuvanted, preservative free Jasvir León MD Work Phone: [facility] 03-20-2019 zoster vaccine recombinant Jasvir León MD Work Phone: [facility] 04-22-2018 influenza, high dose seasonal, preservative-free Jasvir León MD Work Phone: [facility] 03-29-2017 influenza, high dose seasonal, preservative-free Jasvir León MD Work Phone: [facility] 08-26-2016 pneumococcal conjuga te vaccine, 13 valent Jasvir León MD Work Phone: [facility] 03-30-2016 influenza, injectabl e, quadrivalent, contains preservative Jasvir León MD Work Phone: [facility] 03-30-2016 influenza, injectabl e, quadrivalent, preservative free Jasvir León MD Work Phone: [facility] 03-25-2015 pneumococcal polysaccharide vaccine, 23 valent Jasvir León MD Work Phone: [facility] 03-25-2015 seasonal influenza, intradermal, preservative free Jasvir León MD Work Phone: [facility] 04-02-2014 seasonal influenza, intradermal, preservative free Jasvir León MD Work Phone: [facility] 03-31-2014 tetanus and diphther ia toxoids, adsorbed, preservative free, for adult use (5 Lf of tetanus toxoid and 2 Lf of diphtheria toxoid) JEWELL León Work Phone: [facility] 03-31-2014 tetanus toxoid, redu seymour diphtheria toxoid, and acellular pertussis vaccine, adsorbed Mariam Ginty Other [facility] [employer] Other 09-01-2013 tetanus and diphther ia toxoids, adsorbed, preservative free, for adult use (5 Lf of tetanus toxoid and 2 Lf of diphtheria toxoid) II Jasvir León Work Phone: [facility] 09-01-2013 tetanus toxoid, redu seymour diphtheria toxoid, and acellular pertussis vaccine, adsorbed Mariam Ginty Other [employer] Other 03-25-2012 zoster vaccine, live Jasvir León MD Work Phone: [facility] 04-26-2010 pneumococcal polysaccharide vaccine, 23 valent Jasvir León MD Work Phone: [facility] Healthcare Payers Date Payer Category Payer Self-pay 2022 [employer] others) [id number] 2016 [employer] others) [id number] 2016 [employer] ( and others) FOR LIFE [id number] 2016-Present [address] [place] [address] [id number] 2016 () [id number] 2016 [employer] ( and others) [id number] 2004 Medicare [id number] 1959 [facility] ( and others) [id number] 1959 Medicare [id number] 1939 Unknown [id number] 2.16.840.1.207282.3.579.2 .647 1939 Unknown [id number] 2.16.840.1.073892.3.579.2 .593 1939 Unknown [id number] 2.16.840.1.778980.3.579.2 .593 1939 Unknown [id number] 2.16.840.1.801713.3.579.2 .593 1939 Unknown [id number] 2.16.840.1.690535.3.579.2 .593 1939 Unknown [id number] 2.16.840.1.307270.3.579.2 .593 1939 Unknown [id number] 2.16.840.1.856383.3.579.2 .593 1939 Unknown [id number] 2.16.840.1.592575.3.579.2 .593 1939 Unknown [id number] 2.16.840.1.751396.3.579.2 .593 1939 Unknown [id number] 2.16.840.1.209892.3.579.2 .593 1939 Unknown [id number] 2.16.840.1.413246.3.579.2 .593 1939 Unknown [id number] 2.16.840.1.729745.3.579.2 .593 1939 Unknown [id number] 2.16.840.1.845350.3.579.2 .593 1939 Unknown [id number] 2.16.840.1.843013.3.579.2 .593 1939 Unknown [id number] 2.16.840.1.843354.3.579.2 .593 1939 Unknown [id number] 2.16.840.1.794010.3.579.2 .754 1939 Unknown [id number] 2.16.840.1.587997.3.579.2 .754 1939 Unknown [id number] 2.16.840.1.765080.3.579.2 .754 1939 Unknown [id number] 2.16.840.1.546909.3.579.2 .754 1939 Unknown [id number] 2.16.840.1.055382.3.579.2 .1259 1939 Unknown [id number] 2.16.840.1.693715.3.579.2 .1259 1939 Unknown [id number] 2.16.840.1.446736.3.579.2 .1259 1939 Unknown [id number] 2.16.840.1.750878.3.579.2 .1259 1939 Unknown [id number] 2.16.840.1.951786.3.579.2 .1259 1939 Unknown [id number] Medicare [id number] Unknown [id number] Social History Date Type Detail Facility Start: 05-30-2023 End: 07-10-2024 Sex Assigned At [facility] Other Start: 12-11-2022 End: 05-08-2023 Tobacco smoking status NMIS Ex-smoker [employer] Work Phone: End: 07-09-1996 History of tobacco use Current smoker [employer] Phone: End: 07-09-1996 History of tobacco use Cigarette Smoker [employer] Phone: Start: 12-11-2022 End: 05-08-2023 Tobacco use and exposure Smokeless tobacco non-user [employer] Phone: Start: 05-30-2023 Alcohol intake Ex-drinker (finding) [employer] Phone: Start: 05-30-2023 End: 07-10-2024 History of Social function [employer] Phone: Start: 05-08-2023 Alcohol Comment social [employer] Phone: Start: 1940 Sex Assigned At Not on file [employer] Work Phone: Start: 1940 Sex Assigned At Female F [facility] Start: 04-28-2024 End: 08-27-2024 Alcoholic beverage intake Current drinker of alcohol [...] Equipment Origin al Text Equipment Identifier Dates Saeid [employer] [id number] Start: 05-09-2023 Comment on above: Description: T12 Ref# [id number] by In Vitro route [id number] 1 each by Other route in the morning and 1 each in the evening and 1 each before bedtime. Use as instructed. [id number] Start: 06-29-2023 End: 06-28-2024 Goals Date Patient Goal Desired Activity /State Clinical Notes 06-06-2021 to 08-27-2024 Jasvir León MD - 08/27/2024 10:45 AM ZOEY Sinha - 08/20/2024 2:00 PM Jason León MD - 05/08/2024 11:15 AM EDTTelephone Encounter - ZOEY An - 04/29/2024 4:55 PM EDT Note Date & Type Note Facility 08-27-2024 History of Present illness Narrative Images from the original note were not included. HPI Follow-up Additional comments: Pain med/controlled med Last edited by Bev Mejia LPN on 08/27/2024 10:45 AM. Subjective Patient ID: Jenni Quinones is a 84 y.o. female who presents for Follow-up (Pain med/controlled med) and Diabetes. LAB RESULTS Subjective Jenni Quinones is an 82 y.o. female who presents for follow up of diabetes. Pt admits to hypoglycemia, tingling/numbness in extremities. Pt does check her BS's at home and runs around 120-150 Pt seeing pulmonology in september Diabetes Pertinent negatives for diabetes include no chest pain and no fatigue. Current Outpatient Medications on File Prior to Visit Medication Sig Dispense Refill acetaminophen (Tylenol) 325 MG tablet Take 325 mg by mouth every 6 (six) hours if needed. ALPRAZolam (Xanax) 0.25 MG tablet Take 1-2 tablets (0.25-0.5 mg) by mouth as needed at bedtime for anxiety 60 tablet 0 amLODIPine (Norvasc) 5 MG tablet Take 5 mg by mouth in the morning. ammonium lactate (Lac-Hydrin) 12 % lotion Apply 1 application topically if needed. atorvastatin (Lipitor) 20 MG tablet TAKE 1 TABLET BY MOUTH AT BEDTIME 130 tablet 0 buPROPion SR (Wellbutrin SR) 150 MG 12 [...] 10 mg by mouth every 8 (eight) hours PRN colchicine 0.6 MG tablet Take 1 tablet (0.6 mg) by mouth Daily (Patient taking differently: Take 0.6 mg by mouth Daily PRN) 30 tablet 1 Continuous Glucose Computer Systems Integrator (FreeStyle Marguerite 2 [place]) device 1 Device Continuous Glucose Sensor (FreeStyle Marguerite 2 Plus Sensor) misc 1 Application continuously dapagliflozin (Farxiga) 10 MG Take 10 mg by mouth in the morning. digoxin (Lanoxin) 125 MCG tablet Take 1 tablet (125 mcg) by mouth every other day escitalopram (Lexapro) 10 MG tablet Take 1 tablet (10 mg) by mouth Daily 90 tablet 2 gabapentin (Neurontin) 100 MG capsule Take 1 capsule (100 mg) by mouth in the morning and 1 capsule (100 mg) in the evening and 1 capsule (100 mg) before bedtime. 270 capsule 3 hyoscyamine (Anaspaz) 0.[address] 0.25 mg under the tongue every 6 (six) hours if needed insulin lispro protamine-insulin lispro (HumaLOG Mix 75-25) (75-25) 100 UNIT/ML injection Inject 10 Units under the skin in the morning and 10 Units in the evening. Inject with meals. 6 mL 11 lisinopril 20 MG tablet Take 20 mg by mouth in the morning. omeprazole (PriLOSEC) [address] capsule TAKE 1 CAPSULE BY MOUTH DAILY 100 capsule 3 ondansetron ODT (Zofran-ODT) 4 MG disintegrating tablet Take 4 mg by mouth every 6 (six) hours if needed for nausea or vomiting oxygen (O2) gas Inhale 2 L/min continuously via nasal canula rOPINIRole (Requip) 0.25 MG tablet take 1 tablet by mouth once daily 1 to 3 hours BEFORE BEDTIME 100 tablet 3 spironolactone (Aldactone) 25 MG tablet Take 0.5 tablets (12.5 mg) by mouth in the morning. 90 tablet 2 tiZANidine (Zanaflex) 4 MG tablet Take 1 tablet (4 mg) by mouth every 8 (eight) hours if needed for muscle spasms 30 tablet 3 torsemide (Demadex) 20 MG tablet Take 3 tablets (60 mg) by mouth Daily No current facility-administered medications on file prior to visit. I have reviewed and reconciled the history and medication list with the patient today. Allergies Allergen Reactions Codeine Other Reaction(s): Upset Stomach Penicillin G Rash and Other Sacubitril-Valsartan Rash Social History Tobacco Use Smoking status: Former Types: Cigarettes Smokeless tobacco: Never Vaping Use Vaping status: Never Used Substance Use Topics Alcohol use: Yes Comment: [...] Medical History: Diagnosis Date Abnormal echocardiogram 09/06/2020 Age-related osteoporosis with current pathological fracture of vertebra, with routine healing, subsequent encounter 08/19/2024 Asthma ([facility]) Atrial flutter ([facility]) CHF (congestive heart failure) (CMS/[facility]) Diabetes (CMS/[facility]) Diverticulosis Enthesopathy of left foot 02/2016 Enthesopathic spurring of calcaneous of left foot per xray Feb 2016 History of being hospitalized 04/25/2024 Chest Pain, ECG Changes HTN (hypertension) (CMS/HCC) Hyperlipidemia (CMS/HCC) Pathological fracture of vertebra due to osteoporosis (CMS/HCC) 05/09/2023 Routine general medical examination at health care facility Sleep apnea Past Surgical History: Procedure Laterality Date AORTIC VALVE REPLACEMENT 04/2016 and MAZE procedure BLADDER SUSPENSION BUNIONECTOMY Left CARDIAC CATHETERIZATION CARDIAC CATHETERIZATION 2010 CARDIAC CATHETERIZATION Right 05/27/2024 With Bilateral Coronary Angiogram CARDIAC CATHETERIZATION Left 06/10/2024 Povgs-he-[id number] Aortic Valve Replacement CATARACT EXTRACTION Bilateral 2021 Dr. Alexandre CHOLECYSTECTOMY COLONOSCOPY 2012 CT ANGIOGRAM ABDOMEN PELVIS 08/19/2018 CT ANGIOGRAM ABDOMEN PELVIS CT ANGIOGRAM ABDOMEN PELVIS 05/29/2024 CT ANGIOGRAM ABDOMEN PELVIS 05/29/2024 CT ANGIOGRAM HEART CORONARY 05/29/2024 CT ANGIOGRAM TAVR 05/29/2024 DEXA SCAN 2007 DEXA SCAN 2014 HYSTERECTOMY IR INJECTION NERVE BLOCK Bilateral 08/07/2023 L3-L5 LUMBAR EPIDURAL INJECTION 05/29/2023 L4-L5 WY ARTHROSCOPY KNEE DIAGNOSTIC W/WO SYNOVIAL BX SPX Left WY INTUBATION ENDOTRACHEAL EMERGENCY PROCEDURE 08/18/2018 WY MEDICATION MANAGEMENT Aortic insufficiency RIGHT HEART CATHETERIZATION Right 12/20/2021 SINUS SURGERY Right Visit Vitals BP 116/70 Pulse 72 Ht 5' 1 Wt 136 lb SpO2 96% BMI 25.70 kg/m Smoking Status Former BSA 1.63 m Review of Systems Constitutional: Negative for fatigue. Cardiovascular: Negative for chest pain. Objective Physical Exam Constitutional: General: She is not in acute distress. Appearance: She is well-developed. Comments: Frail appearing HENT: Head: Normocephalic and atraumatic. Right Ear: Tympanic membrane and ear canal normal. Ears: Comments: Left TM not visible due to cerumen in canal, not impacted, but does obscure view. Eyes: General: No scleral icterus. Conjunctiva/sclera: Conjunctivae normal. Cardiovascular: Rate and Rhythm: Rhythm irregularly irregular. Heart sounds: Murmur heard. Systolic murmur is present with a grade of 2/6. Pulmonary: Effort: No respiratory distress. Breath sounds: Decreased air movement present. No wheezing, rhonchi or rales. Comments: On supplemental oxygen. Occasional dry cough. Skin: General: Skin is warm and dry. Neurological: General: No focal deficit present. Mental Status: She is alert and oriented to person, place, and time. Gait: Gait abnormal (Using a wheelchair). Psychiatric: Mood and Affect: Mood normal. Behavior: Behavior normal. Office Visit on 08/20/2024 Component Date Value Ref Range Status Hemoglobin A1C 08/20/2024 6.8 Final Glucose 08/25/2024 141 (H) 65 - 139 mg/dL Final Comment: Non-fasting reference interval For someone without known diabetes, a glucose value >125 mg/dL indicates that they may have diabetes and this should be confirmed with a follow-up test. BUN 08/25/2024 30 (H) 7 - 25 mg/dL Final Creatinine 08/25/2024 1.60 (H) 0.60 - 0.95 mg/dL Final EGFR 08/25/2024 31 (L) > OR = 60 mL/min/1.73m2 Final BUN/CREATININE RATIO 08/25/2024 19 6 - 22 (calc) Final Sodium 08/25/2024 137 135 - 146 mmol/L Final Potassium, Bld 08/25/2024 4.2 3.5 - 5.3 mmol/L Final Chloride 08/25/2024 89 (L) 98 - 110 mmol/L Final Carbon Dioxide 08/25/2024 38 (H) 20 - 32 mmol/L Final Calcium 08/25/2024 9.2 8.6 - 10.4 mg/dL Final B TYPE NATRIURETIC PEPTIDE (BNP) 08/25/2024 347 (H) <100 pg/mL Final Comment: BNP levels increase with age in the general population with the highest values seen in individuals greater than 75 years of age. Reference: J. Am. Priya. Cardiol. 2002; 40:976-982. Clinisync Result Encounter on 08/15/2024 Component Date Value Ref Range Status E COLI SHIGA TOXIN EIA 08/15/2024 Final Value: E coli Shiga Toxin EIA E COLI SHIGA TOXIN EIA 08/15/2024 Negative Final E COLI SHIGA TOXIN EIA 08/15/2024 Performed at: [facility] Final E COLI SHIGA TOXIN EIA 08/15/2024 [address] [place], [place] [id number] Final E COLI SHIGA TOXIN EIA 08/15/2024 Oil Lease Buyer: Scooby Mcfarlane PhD, Phone: [phone] Final SALMONELLA/SHIGELLA SCREEN 08/15/2024 Final Value: Salmonella/Shigella Screen SALMONELLA/SHIGELLA SCREEN 08/15/2024 No Salmonella or Shigella recovered. Final CAMPYLOBACTER CULTURE 08/15/2024 Final Value: Campylobacter Culture No Campylobacter species isolated. Clinisync Result Encounter on 07/22/2024 Component Date Value Ref Range Status SODIUM 07/22/2024 139 136 - 145 mmol/L Final POTASSIUM 07/22/2024 4.1 3.5 - 5.1 mmol/L Final CHLORIDE 07/22/2024 102 98 - 107 mmol/L Final CARBON DIOXIDE 07/22/2024 32.4 (H) 21.0 - 32.0 mmol/L Final ANION GAP 07/22/2024 8.7 Final GLUCOSE 07/22/2024 190 (H) 74 - 106 mg/dL Final BLOOD UREA NITROGEN 07/22/2024 26.0 (H) 7.0 - 18.0 mg/dL Final CREATININE 07/22/2024 1.64 (H) 0.55 - 1.02 mg/dL Final [facility] EGFR-AF HAITIAN 07/22/2024 36 (L) >=60 mL/min/1.73m 2 Final [facility] EGFR-NON AF HAITIAN 07/22/2024 30 (L) >=60 mL/min/1.73m 2 Final BUN CREATININE RATIO 07/22/2024 15.9 Final CALCIUM 07/22/2024 9.1 8.5 - 10.1 mg/dL Final DIGOXIN 07/22/2024 1.2 0.9 - 2.0 ng/mL Final Assessment/Plan Diagnoses and all orders for this visit: Chronic combined systolic and diastolic congestive heart failure (CMS/HCC) - No current active congestive heart failure. Dyspnea at exertion, but not at rest. No evidence of pulmonary edema. Medications unchanged. Spinal stenosis at L4-L5 level - HYDROcodone-acetaminophen ([place]) 5-325 MG tablet; Take 1 tablet by mouth every 4 (four) hours if needed for severe pain for up to 10 days Chronic a-fib (CMS/HCC) Stage 3b chronic kidney disease (HCC) (CMS/HCC) Follow up in about 2 months (around 10/25/2024) for Routine F/U. documented in this encounter [facility] 08-20-2024 History of Present illness Narrative Images from the original note were not included. HPI Anxiety Additional comments: Having bad anxiety at night and Alprazolam is not helping. Last edited by Korin Burks LPN on 08/20/2024 2:12 PM. Subjective Patient ID: Jenni Quinones is a 84 y.o. female who presents for [facility] follow up. Flowsheet Row Patient Outreach from 08/18/2024 in [facility] with Leora Pollrad RN Hospital Information ED, Hospital or Residential Facility Discharge? Hospital Patient has been contacted within two business days of discharge Yes Diagnosis Gastroenteritis, Acute on Chronic reanal failure, Nstemi Discharge Date 08/17/24 Discharged To: Home Setting Discharge Hospital [facility] Engagement Call Start Time 1606 Admission Date 08/15/24 Medications Discharge medications reviewed and reconciled from hospital? Yes [prn orders fro Hycoscyamine and Ondansetron] Is the patient having any side effects they believe may be caused by any medication additions or changes? No Does the patient have all medications ordered at discharge? Yes Is the patient taking all medications as directed (includes completed medication regime)? Yes Appointments Does the patient have a primary care provider? Yes [scheduled on 08/20 at 2 pm] Nursing Interventions Verified appointment date/time/provider Does the patient have any upcoming specialty appointments? Yes Self Management Does patient have home health yes What is the home health agency? [facility] Has home health visited the patient within 72 hours of discharge? -- [scheduled for [facility]] Patient Teaching Does the patient have access to their discharge instructions? Yes [spoke to pt's daughter] Nursing Interventions Reviewed instructions with patient What is the patient's perception of their health status since discharge? Improving Is the patient/caregiver able to teach back the hierarchy of who to call/visit for symptoms/problems? PCP, Specialist, Home Health nurse, Urgent Care, ED, 911 Yes Wrap Up Wrap Up Additional Comments Testing: labs, CT abdomen/pelvis. Pt reports nausea is better. Some diarrhea. No chest pain. Using oxygen. Scheduled Hosp follow up. Call End Time 1421 Pt is here with her daughter, Bety. She was rx'd Hyoscyamine and Ondansetron. She is feeling better just feels weak. She is having some left ear discomfort, feels full, and would like for you to take a look at it. Currently on 2 L of oxygen. Has an appointment to see Dr. Tan on . However, pt's daughter seems like that is two far away. Current Outpatient Medications on File Prior to Visit Medication Sig Dispense Refill colchicine 0.6 MG tablet Take 1 tablet (0.6 mg) by mouth Daily (Patient taking differently: Take 0.6 mg by mouth Daily PRN) 30 tablet 1 acetaminophen (Tylenol) 325 MG tablet Take 325 mg by mouth every 6 (six) hours if needed. amLODIPine (Norvasc) 5 MG tablet Take 5 mg by mouth in the morning. ammonium lactate (Lac-Hydrin) 12 % lotion Apply 1 application topically if needed. atorvastatin (Lipitor) 20 MG tablet TAKE 1 TABLET BY MOUTH AT BEDTIME 130 tablet 0 buPROPion SR (Wellbutrin SR) 150 MG 12 [...] 10 mg by mouth every 8 (eight) hours PRN Continuous Glucose Computer Systems Integrator (FreeStyle Marguerite 2 [place]) device 1 Device Continuous Glucose Sensor (FreeStyle Marguerite 2 Plus Sensor) misc 1 Application continuously dapagliflozin (Farxiga) 10 MG Take 10 mg by mouth in the morning. digoxin (Lanoxin) 125 MCG tablet Take 1 tablet (125 mcg) by mouth every other day escitalopram (Lexapro) 10 MG tablet Take 1 tablet (10 mg) by mouth Daily 90 tablet 2 gabapentin (Neurontin) 100 MG capsule Take 1 capsule (100 mg) by mouth in the morning and 1 capsule (100 mg) in the evening and 1 capsule (100 mg) before bedtime. 270 capsule 3 hyoscyamine (Anaspaz) 0.[address] 0.25 mg under the tongue every 6 (six) hours if needed insulin lispro protamine-insulin lispro (HumaLOG Mix 75-25) (75-25) 100 UNIT/ML injection Inject 10 Units under the skin in the morning and 10 Units in the evening. Inject with meals. 6 mL 11 lisinopril 20 MG tablet Take 20 mg by mouth in the morning. omeprazole (PriLOSEC) [address] capsule TAKE 1 CAPSULE BY MOUTH DAILY 100 capsule 3 ondansetron ODT (Zofran-ODT) 4 MG disintegrating tablet Take 4 mg by mouth every 6 (six) hours if needed for nausea or vomiting oxygen (O2) gas Inhale 2 L/min continuously via nasal canula rOPINIRole (Requip) 0.25 MG tablet take 1 tablet by mouth once daily 1 to 3 hours BEFORE BEDTIME 100 tablet 3 spironolactone (Aldactone) 25 MG tablet Take 0.5 tablets (12.5 mg) by mouth in the morning. 90 tablet 2 tiZANidine (Zanaflex) 4 MG tablet Take 1 tablet (4 mg) by mouth every 8 (eight) hours if needed for muscle spasms 30 tablet 3 torsemide (Demadex) 20 MG tablet Take 3 tablets (60 mg) by mouth Daily [DISCONTINUED] ALPRAZolam (Xanax) 0.25 MG tablet Take 1 tablet (0.25 mg) by mouth every 6 (six) hours if needed for anxiety 60 tablet 0 [DISCONTINUED] levothyroxine (Synthroid, Levoxyl) 50 MCG tablet Take 1 tablet by mouth in the morning. Take before meals. [DISCONTINUED] ondansetron (Zofran) 4 MG tablet Take 1 tablet (4 mg) by mouth every 8 (eight) hours if needed for nausea or vomiting for up to 7 days 20 tablet 0 No current facility-administered medications on file prior to visit. I have reviewed and reconciled the history and medication list with the patient today. Allergies Allergen Reactions Codeine Other Reaction(s): Upset Stomach Penicillin G Rash and Other Sacubitril-Valsartan Rash Social History Tobacco Use Smoking status: Former Types: Cigarettes Smokeless tobacco: Never Vaping Use Vaping status: Never Used Substance Use Topics Alcohol use: Yes Comment: [...] Medical History: Diagnosis Date Abnormal echocardiogram 09/06/2020 Age-related osteoporosis with current pathological fracture of vertebra, with routine healing, subsequent encounter 08/19/2024 Asthma (CMS/HCC) Atrial flutter (CMS/HCC) CHF (congestive heart failure) (CMS/HCC) Diabetes (CMS/HCC) Diverticulosis Enthesopathy of left foot 02/2016 Enthesopathic spurring of calcaneous of left foot per xray Feb 2016 History of being hospitalized 04/25/2024 Chest Pain, ECG Changes HTN (hypertension) (CMS/HCC) Hyperlipidemia (CMS/HCC) Pathological fracture of vertebra due to osteoporosis (CMS/HCC) 05/09/2023 Routine general medical examination at health care facility Sleep apnea Past Surgical History: Procedure Laterality Date AORTIC VALVE REPLACEMENT 04/2016 and MAZE procedure BLADDER SUSPENSION BUNIONECTOMY Left CARDIAC CATHETERIZATION CARDIAC CATHETERIZATION 2010 CARDIAC CATHETERIZATION Right 05/27/2024 With Bilateral Coronary Angiogram CARDIAC CATHETERIZATION Left 06/10/2024 [id number] Aortic Valve Replacement CATARACT EXTRACTION Bilateral 2021 Dr. Alexandre CHOLECYSTECTOMY COLONOSCOPY 2012 CT ANGIOGRAM ABDOMEN PELVIS 08/19/2018 CT ANGIOGRAM ABDOMEN PELVIS CT ANGIOGRAM ABDOMEN PELVIS 05/29/2024 CT ANGIOGRAM ABDOMEN PELVIS 05/29/2024 CT ANGIOGRAM HEART CORONARY 05/29/2024 CT ANGIOGRAM TAVR 05/29/2024 DEXA SCAN 2007 DEXA SCAN 2014 HYSTERECTOMY IR INJECTION NERVE BLOCK Bilateral 08/07/2023 L3-L5 LUMBAR EPIDURAL INJECTION 05/29/2023 L4-L5 WY ARTHROSCOPY KNEE DIAGNOSTIC W/WO SYNOVIAL BX SPX Left WY INTUBATION ENDOTRACHEAL EMERGENCY PROCEDURE 08/18/2018 WY MEDICATION MANAGEMENT Aortic insufficiency RIGHT HEART CATHETERIZATION Right 12/20/2021 SINUS SURGERY Right Visit Vitals BP 122/76 Pulse 73 Temp 98 F Resp 16 Ht 5' 1 Wt 136 lb 3.2 oz SpO2 97% BMI 25.73 kg/m Smoking Status Former BSA 1.63 m Review of Systems Constitutional: Positive for fatigue. Negative for chills and fever. HENT: Positive for ear pain. Respiratory: Negative for cough, shortness of breath and wheezing. Cardiovascular: Negative for chest pain, palpitations and leg swelling. Gastrointestinal: Negative for abdominal pain, constipation, diarrhea, nausea and vomiting. Skin: Negative for rash. Neurological: Positive for weakness. Psychiatric/Behavioral: The patient is nervous/anxious. Objective Physical Exam Constitutional: General: She is not in acute distress. Appearance: She is well-developed. Comments: Frail appearing HENT: Head: Normocephalic and atraumatic. Right Ear: Tympanic membrane and ear canal normal. Ears: Comments: Left TM not visible due to cerumen in canal, not impacted, but does obscure view. Eyes: General: No scleral icterus. Conjunctiva/sclera: Conjunctivae normal. Cardiovascular: Rate and Rhythm: Rhythm irregularly irregular. Heart sounds: Murmur heard. Systolic murmur is present with a grade of 2/6. Pulmonary: Effort: No respiratory distress. Breath sounds: Decreased air movement present. No wheezing, rhonchi or rales. Comments: On supplemental oxygen. Occasional dry cough. Skin: General: Skin is warm and dry. Neurological: General: No focal deficit present. Mental Status: She is alert and oriented to person, place, and time. Gait: Gait abnormal (Using a wheelchair). Psychiatric: Mood and Affect: Mood normal. Behavior: Behavior normal. Assessment/Plan Diagnoses and all orders for this visit: Gastroenteritis Symptoms are improving for patient. Has Zofran to take if needed. Encouraged her to sip clear fluids consistently. She is aware of importance of fluid balance with her heart and kidneys. Diabetes mellitus with peripheral vascular disease (CMS/HCC) - POCT Glycated hemoglobin, total Advised her HgbA1c was controlled at 6.8 today. Continue current medication and will continue to monitor. NSTEMI (non-ST elevated myocardial infarction) (CMS/HCC) The patient is seeing a medical customer service representative for this condition, treatment is deferred to that specialist. Correspondence from that specialist and any available testing were reviewed during today's visit. Chronic hypoxic respiratory failure (CMS/HCC) Lungs clear today. Stable on supplemental oxygen. Chronic diastolic congestive heart failure (CMS/HCC) - B-type natriuretic peptide; Future BNP was 10,538 while inpatient. Will recheck with her BMP early next week to make sure it is improved. Mass of left lung Encouraged pt and her daughter to contact Dr. Tan's office to see in an earlier appointment might be available. Mass has increased in size per imaging done while in the hospital. Oxygen dependent Oxygen current WNL today on 2 L O2 via nasal cannula. Anxiety - ALPRAZolam (Xanax) 0.25 MG tablet; Take 1-2 tablets (0.25-0.5 mg) by mouth as needed at bedtime for anxiety Advised pt she can take 0.5 mg before bed as needed. OARRS report generated and reviewed. Chronic a-fib (CMS/HCC) Rate controlled at today's visit. The patient is seeing a medical customer service representative for this condition, treatment is deferred to that specialist. Correspondence from that specialist and any available testing were reviewed during today's visit. Type 2 diabetes mellitus with stage 3b chronic kidney disease, with long-term current use of insulin (HCC) (CMS/HCC) - Basic metabolic panel; Future Will recheck kidney function early next week. Discomfort of left ear Possible ETD. Can use OTC saline nasal spray prn. Debrox drops and recheck at follow up. May need to irrigate if still having discomfort and still unable to visualize TM. Chronic kidney disease, stage 3b (HCC) (CMS/HCC) See above. Chronic obstructive pulmonary disease, unspecified (CMS/HCC) See above. Panlobular emphysema (CMS/HCC) See above. The patient was seen today in follow up of recent hospital stay. All available hospital records were reviewed and discussed with the patient. Hospital discharge meds were reviewed. Any changes are as noted. Follow up for Appointment As Scheduled. documented in this encounter [facility] 07-25-2024 Note [place] [facility] Subjective Jenni Helga Quinones is a 84 y.o. year old [...] SOB is worsening. 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 Patient Active Problem List Diagnosis Anemia Diastolic [...] She has history of prior admissions to [facility] with AF/RVR and diastolic heart failure [...] A transthoracic e (more content not included)... [facility] 06-23-2024 Note [place] [facility] Subjective Jenni Quinones is a [...] She has history of prior admissions to [facility] with AF/RVR and diastolic heart failure [...] echocardiogram showed evide (more content not included)... [facility] 06-11-2024 Note Surgical Intensive C are Unit [...] She [facility] of [facility] [facility] with AF/RVR and diastolic heart failure [...] 62.6 kg (138 lb 0.1 oz) (06/11 1032) No data recorded I/O last 3 completed [...] Interval 434 ms QTC CALCULATION(BAZETT) 447 ms R-[place] -19 degrees T Wave [place] 148 degrees POCT glucose meter Collection Time: [...] 106 QT Interval 434 QTC CALCULATION(BAZETT) 447 R-[place] -19 T Wave [place] 148 Impression Atrial fibrillation Moderate voltage criteria for LVH, may be normal variant ( R in aVL , [place] product ) Marked ST abnormality, possible lateral subendocardial injury Abnormal ECG When compared with ECG of 10-JUN-2024 15:58, (unconfirmed) QRS duration has decreased T wave inversion no longer evident in Lateral Confirmed by Hui LIZARRAGA, HIRO Ren ([id number]) on 06/11/2024 9:56:48 AM Assessment The patient is a 84 y.o. year old female who presented s/p TAVR. Problem List: - (more content not included)... [facility] 06-11-2024 Note Cardiothoracic Surge ry Post Operative Progress Note 06/11/2024 Room: [address] [place] [address] Post Op Day: 1 Day Post-Op Subjective Jenni Quinones is a 84 y.o. 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 She was evaluated in Cardiology and Cardiothoracic Surgery Clinics, and was deemed appropriate for TAVR as treatment for her aortic valve stenosis given high surgical risk for a redo aortic valve replacement. 12/3 s/p Underwent Successful bsjtg-nh-lxwjn transcatheter aortic valve replacement using a 23 [...] Aortic stenosis, severe 84y.o. F POD #1 qsdzj-ag-yutyw transcatheter aortic valve replacement using a 23 [...] Cardiothoracic Surgery Inpatient from 8am-4pm call Ascom #[phone]. Only use [employer] chat for general questions. If unable to reach Ascom Number call hospital retort furnace operator for Cardiothoracic Provider Mycologist. Cardiothoracic Surgery outpatient Office Number [phone]. Cardiothoracic Surgery outpatient . .att As the [...] with them. Craig Braun MD CT Surgery [facility] 06-11-2024 Note Cardiothoracic Surge ry Progress Note 06/11/2024 Room: [address] [place] [address] [place] [address] Jenni Quinones is a 84 y.o. 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 She was evaluated in Cardiology and Cardiothoracic Surgery Clinics, and was deemed appropriate for TAVR as treatment for her aortic valve stenosis given high surgical risk for a redo aortic valve replacement. 06/10 s/p Underwent Successful xcakz-sx-ookfh transcatheter aortic valve replacement using a 23 [...] -- 53 17 97 % -- -- 06/10/24 2000 (!) 109/46 36.3 ???C (97.3 ???F) Oral [...] Value Date WBC (more content not included)... [facility] 06-10-2024 Note Pharmacy Dosing Serv ice - Vancomycin Initial Consult Note Pharmacy has been consulted for the dosing and evaluation of Drug: Vancomycin Indication: Surgical Prophylaxis x 24 hours post op Other Antimicrobial Regimens: none Labs and Renal Function Total body weight: 62.6 kg (138 lb) [place] body weight: 50.1 kg (110 lb 7.2 [...] for infection, please re-consult and we will bshe-zg-majlrg. -Please do not hesitate to contact us with comments or questions Thank you, Isamar Chavez, PharmD, 06/10/24 [facility] 06-10-2024 Note Craig Braun MD 06/10/2024 TAVR [...] access for the TAVR procedure. PROCEDURES: Successful wynrt-pp-nsukw transcatheter aortic valve replacement using a 23 mm Zarate Shahram 3 Ultra valve deployed at nominal volume via percutaneous transfemoral access. Placement of a temporary pacemaker wire. Left heart catheterization. Access into the left subclavian artery, left radial artery, left common femoral artery and vein under ultrasound guidance. Left axillary artery angiogram. Preclosure in the left axillary artery using two 6-Panamanian ProGlide devices. Balloon aortic valvuloplasty. OPERATORS: Interventional Cardiology Orchid Superintendent: Josefina Nova MD Cardiac Surgery Orchid Superintendent: Craig Braun MD Loss Prevention Auditor Interventional Cardiology Orchid Superintendent: Ángel Lim MD METHODS: Procedure was explained to the patient with risks and benefits. she signed informed consent. she was brought to r&d lab technician in a fasting state. The procedure was performed in the cardiac r&d lab technician under conscious sedation. The left groin area, the left wrist area, and the left shoulder area were prepped and draped in usual fashion. Micropuncture technique and ultrasound guidance were used for access in the left common femoral artery and inner cannula angiography was performed followed by upsizing to a 6-Panamanian x 11 cm sheath. The same was done for the access in the left common femoral vein. Ultrasound guidance was used for micropuncture access in the left radial artery and a 4-Panamanian x 11 cm introducer sheath was secured [...] cannular angiography followed by upsizing to a 6-Panamanian x 11 cm sheath. At this time, we proceeded with the preclosure in the left axillary artery using 2 crossing Perclose devices and the access was then upsized over a wire to a 10-Panamanian sheath. A 5-Panamanian balloon-tipped pacemaker wire was advanced through the left common femoral vein sheath to the right ventricular apex and adequate capture was confirmed. Heparin was given intravenously and therapeutic ACT confirmed during the rest of the procedure and additional heparin given as needed. A 6 Panamanian JL 3.5 guiding catheter was advanced through the left common femoral arterial sheath and used to engage the left coronary artery. Angiography was performed. A Prowater wire was advanced into the distal LAD. This was placed for protection of the left main given moderate risk for coronary obstruction. A 6-Panamanian AR1 diagnostic catheter was advanced via the axillary sheath, and using a straight stiff Glidewire, the aortic valve was crossed and the catheter was advanced in the left ventricular cavity, and using an exchange length J-wire, a 6-Panamanian angled pigtail catheter was advanced to make [...] length amplatz extra stiff wire to the 14-Panamanian Zarate E-sheath. The sheath was secured in place. Based on the prior CT scan measurements and the jtuya-nw-kbtno erika, we proceeded with a Zarate Shahram [...] valve was exchanged (more content not included)... [facility] 06-10-2024 Note Patient: Jenni Liao Procedure Information Date/Time: 06/10/24 1130 Procedure: TAVR - PC APPROVED Location: [facility] / [facility] (Cath) Providers: Josefina Nova [...] consented to blood products. Additional Equipment Requests [facility] 06-02-2024 Note [place] Cardiology - [facility] Subjective Jenni Quinones is a [...] She has history of prior admissions to [facility] with AF/RVR and diastolic heart failure [...] coronary artery disease (more content not included)... [facility] 05-29-2024 Note Cardiothoracic Surge ry Outpatient Consultation [...] Severe Tr. EF 55%. Cardiac catheteriztion on 11/19/24 revealed minimal CAD and severe pulmonary HTN with 7.95 COOK. She also has a past medical history of a CVA in 2019, former smoking Hx, history of hypertension, ZIA [...] and Other Diagnostic Testing. Findings discussed with inspector fuel hose and patient. Explained current disease process and [...] (PriLOSEC) 40 m (more content not included)... [facility] 05-27-2024 Note Patient: Jenni Partida Yanni josue Procedure Information Date/Time: 05/27/24 1000 Procedures: Right heart cath Coronary angiography Location: [facility] / [facility] (Cath) Providers: Josefina Nova [...] consented to blood products. Additional Equipment Requests [facility] 05-27-2024 Note Patient: Jenni Liao se Procedure Information Date/Time: 05/27/24 0830 Procedure: TRANSESOPHAGEAL ECHO (FARA) Location: [facility] Vascular Lab [...] Plan discussed with attending. Additional Equipment Requests [facility] 05-27-2024 Note Report given to Torey turner RN. RN verbalized how FARA went and medications given during the procedure. [facility] 05-13-2024 Note Cardiovascular Medic [facility] SUBJECTIVE Chief Complaint Patient presents [...] c/o chest pain. She was transferred to [facility] for further cardiac care. She underwent [...] fibrillation (CMS/HCC) Bradycardia CHF (congestive heart failure) ([facility]/HCC) Heart valve disease Hyperlipidemia Hypertension Sleep apnea [...] tablet, Rfl: 0 (more content not included)... [facility] 05-13-2024 Note Patient here for 3 m o follow up aortic/mitral valve stenosis, diastolic heart failure, and permanent afib. She was admitted to [facility] a few weeks ago for chest [...] systems reviewed and are negative. [facility] 05-08-2024 History of Present illness Narrative Images from the original note were not included. HPI Follow-up Additional comments: [facility] stay 04/11/24-04/13/24 after fall at home with rib fractures discharged to [facility] 04/24/24-04/25/24 dx: CP Discharged home from [facility] 04/30/24 Shortness of Breath Additional comments: Had echo yesterday ordered by cardiology has appt with cardiology next week Using 02 continuously Med Refill Additional comments: Hydrocodone--DM mio Last edited by Bev Mejia LPN on 05/08/2024 11:24 AM. Subjective Patient ID: Jenni Quinones is a 84 y.o. female who presents for Follow-up ([facility] stay 04/11/24-10/6/24 after fall at home with rib fractures [facility] 04/24/24-04/25/24 dx: CP/Discharged home from [facility] 04/30/24), Shortness of Breath (Had echo yesterday ordered by cardiology has appt with cardiology next week/Using 02 continuously ), and Med Refill (Hydrocodone--DM mio). Flowsheet Row Patient Outreach from 04/30/[address] [facility] with Monica Ross LPN Hospital Information ED, Hospital or Residential Facility Discharge? Residential Facility Discharged To: Home Setting Engagement Medications [...] Management What is the home health agency? [facility] NURSE/PT/OT Has home health visited [...] muscle spasms. 30 tablet 3 [DISCONTINUED] HYDROcodone-acetaminophen ([place]) 5-325 MG tablet Take 1 tablet by [...] History: Diagnosis Date Abnormal echocardiogram 09/06/2020 Asthma ([facility]/HCC) Atrial flutter ([facility]/HCC) CHF (congestive heart failure) ([facility]) Diabetes ([facility]) Diverticulosis Enthesopathy of left foot 02/2016 Enthesopathic spurring of calcaneous of left foot per xray Feb 2016 History of being hospitalized 04/25/2024 Chest Pain, ECG Changes HTN (hypertension) ([facility]/HCC) Hyperlipidemia ([facility]) Routine general medical examination at health care facility Sleep apnea Past Surgical History: Procedure Laterality Date AORTIC VALVE REPLACEMENT 04/2016 and MAZE procedure BLADDER SUSPENSION BUNIONECTOMY Left CARDIAC CATHETERIZATION CARDIAC CATHETERIZATION 2010 CATARACT EXTRACTION Bilateral 2021 Dr. Alexandre CHOLECYSTECTOMY COLONOSCOPY 2013 CT ANGIOGRAM ABDOMEN PELVIS 08/19/2018 CT ANGIOGRAM ABDOMEN PELVIS DEXA SCAN 2007 DEXA SCAN 2014 HYSTERECTOMY IR INJECTION NERVE BLOCK Bilateral 08/07/2023 L3-L5 LUMBAR EPIDURAL INJECTION 05/29/2023 L4-L5 WY ARTHROSCOPY KNEE DIAGNOSTIC W/WO SYNOVIAL BX SPX Left WY INTUBATION ENDOTRACHEAL EMERGENCY PROCEDURE 08/18/2018 WY MEDICATION MANAGEMENT Aortic insufficiency RIGHT HEART CATHETERIZATION [...] Spinal stenosis at L4-L5 level - HYDROcodone-acetaminophen ([place]) 5-325 MG tablet; Take 1 tablet by mouth every 4 (four) hours if needed for severe pain for up to 10 days Follow up in about 4 weeks (around 06/05/2024) for Routine F/U. documented in this encounter [facility] 04-29-2024 Telephone encounter Note [facility] [place] requesting clarification on dispense amount for insulin. Resent with correct amount to dispense. [facility] 04-29-2024 Miscellaneous Notes Drug [place] requesting clarification on dispense amount for insulin. Resent with correct amount to dispense. documented in this encounter [facility] 04-25-2024 Consult note Note Date/Time April 25, 2024 12:10pm [facility] [address] [place] [address] Cardiology Consult Note Signed with Smith Patient: Jenni Quinones MR#: [id number] : 1940 Acct:[id number] Age/Sex: 84 / F Adm Date: 4 Loc: 4C Room: 8F5651-6 Type: ADM IN Attending Dr: Javan Gruber [...] the hospitalist and ER nurse practitioner at [facility] after discussion last night. Patient was transferred here under my direction for further assessment and management. She was watching the [email or web address] game, became very excited and experienced retrosternal chest discomfort that abated after arrival to the emergency room after being directed by her family togo to the ER for her discomfort. Initial ECGs revealed atrial fibrillation withnonspecific ST changes, initial troponin was negative. Patient has a history of chronic atrial fibrillation, aortic valve replacement in [place], followed by Dr. Nova. She has previous [...] be discharged to follow-up with her primary inspector fuel hose. [facility] Medical History (Updated 04/25/24 @ 04:15 [...] Lymph # (Auto) 0.7 L (1.00-4.8) x10E3/uL [place] # (Auto) 0.8 (0.0-0.8) x10E3/uL Eos # [...] <Electronically signed by Ingrid [facility] DO> 04/25/24 3236 [facility] Work Phone: 1(679) 863-358810-18-2024 History and physical note Author Lalo Carter [facility] April 25, 2024 4:19am Note Date/Time April 25, 2024 4 :10am [facility] [address] [place] [address] Hospitalist H&P Signed Patient: Jenni Quinones MR#: [id number] : 1940 Acct:[id number] Age/Sex: 84 / F Adm Date: 4 Loc: Room: [address] [place] [address] Type: ADM IN Attending Dr: Lalo Carter DO Copies to: MD Lalo Padilla II, ~ HPI DATE OF EXAMINATION: 04/25/24 CHIEF COMPLAINT: Chest pain with radiation to the jaw and shortness of breath and EKG change HISTORY OF PRESENT ILLNESS: This is an 84-year-old woman who presented to the [facility] emergency room. The ER over there had gotten a hold of cardiology on-call with Dr. [facility] regarding EKG changes especially in aVL with inferior depression pattern and so it was recommended that the patient be transferred here to [facility] for cardiology evaluation. The patient is currently in a [facility] facility working with physical therapy and getting [...] of this lasted 20 minutes. At the [facility] emergency room a chest x-ray showed what [...] cardiology with Dr. Josefina Nova from the [facility], to [place]. 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 She has been told that there is something just not quite right about that aortic valve, but she cannot explain what the inspector fuel hose were looking at. When I asked her if she got cardiac catheterization and planning for the aortic valve replacement the patient does not recall getting this. Review of Systems Review of Systems Review of systems: 10 systems are reviewed and are negative except as mentioned elsewhere in the documentation. [facility] Medical History (Updated 04/25/24 @ 04:15 [...] diabetes mellitus: Plan Assessment: Presentation to the [facility] with chest pain with radiation to the [...] a fall on April 11 at a [facility] facility in [place]. Plan: Hospital admission, inpatient status. N.p.o. for [...] signed by Lalo Carter DO> 04/25/24 0419 [facility] Work Phone: 1(435) 910-706909-09-2024 Telephone encounter Note* Telephone Encounter - Jasvir León MD - 03/17/2024 1:33 PM EDT Rx was sent in. [facility] [id number] Miscellaneous Notes* Telephone Encounter - Jasvir León MD - 03/17/2024 1:33 PM EDT Rx was sent in. * Telephone Encounter - Bev Mejia LPN - 03/17/2024 1:11 PM EDT Pt called tested positive for covid has sorethroat,headache,cough,fatigue she wasn't sure if she needed to get paxlovid or just let it run its course--symptoms started last night documented in this encounterNOAlvin J. Siteman Cancer [id number] Telephone encounter Note* Telephone Encounter - Bev Mejia LPN - 03/17/2024 1:11 PM EDT Pt called tested positive for covid has sorethroat,headache,cough,fatigue she wasn't sure if she needed to get paxlovid or just let it run its course--symptoms started last night [facility] [id number] NoteUT Cardiology - [facility] Subjective Jenni Quinones is a 83 [...] She has history of prior admissions to [facility] with AF/RVR and diastolic heart failure [...] of Systems Constitutional: P (more content not included)...[facility]05-31-2024 NoteRecently admitted overnight at [facility] for Acute HFrEF and palpitations Coreg [...] function and electrolytes and she voiced understanding. [facility] II-III Pt is close to euvolemia via assessment todayUnMercy [facility] St[facility] 12-07-2023 Noteaortic valve replacement with a 23 mm trifecta tissue valve: 2016 Elevated doppler flows noted and severe AO stenosis- will repeat TTE a 6 months to re-evalaute. RTC with Dr Nova D/W pt about red flag symptoms to call 911 and/or office- increased SOB, Palpitations, syncope, chest pain or any concerns and she voiced understanding Continue all medications as prescribedUnMercy Health St. [facility] 12-07-2023 NoteRepeat TTE in 6 months Pt denied any worsening symptoms since DC from [facility] and diuresisUnMercy Health St. [facility]05-31-2024 NoteStable, will monitor with routine echocardiogram in [address] [facility]05-31-2024 NoteUTP CARDIOLOGY PROGRESS NOTE HPI: Jenni Quinones is a 83 y.o. female here for routine f/U and review of TTE and ED f/U Patient here for 6 mo follow up aortic and mitral valve stenosis, diastolic heart failure, and permanent afib. She had an echo last month. She presented to [facility] ED a few weeks ago for [...] She has history of prior admissions to [facility] with AF/RVR and diastolic heart failure decompensation. She has normal coronary angiogram in 2016. Patient here for 6 mo follow up aortic and mitral valve stenosis, diastolic heart failure, and permanent afib. She had an echo last month. She presented to [facility] ED a few weeks ago for [...] initiated. Patient agrees this plan. Emergency Department [id number] [facility] 5 Patient name: JENNI QUINONES Laboratory [...] has new requirement of 2L O2 by MI. Case discussed with hospitalist who agreed to [...] She has history of prior admissions to [facility] with AF/RVR and diastolic heart failure [...] flows across the biop (more content not included)...[facility]05-31-2024 NotePatient here for 6 mo follow up aortic and mitral valve stenosis, diastolic heart failure, and permanent afib. She had an echo last month. She presented to [facility] ED a few weeks ago for [...] weakness. All other systems reviewed and are negative.[facility] 12-07-2023 NoteContinue to monitor AO valve with repeat TTE in 6 months [facility]01-30-2024 History of Present illness Narrative* Carole Loyola LPN - 08/07/2023 10:57 AM EST Pt alert and oriented. Denies pain at this time. Dressings at injection site clean and dry. Discharge instructions reviewed, no questions or concerns voiced. documented in this encounterWYANDOT Work Phone: [phone] Hospital Discharge instructions* Discharge Instructions* Carole Loyola [...] vomiting - Difficulty breathing or swallowing CALL [phone] Other Instructions: - You should have a follow-up appointment scheduled already or a follow-up plan in place prior to leaving. - Call the office if you develop any problems or have any questions at: [facility] [phone] or Our 24 hour help line is also available: [phone] ([phone]) If you need refills,or have questions / concerns, outside of our office hours Sunday 8:00 a.m - 4:30 p.m. at [facility], please call [phone] to speak to Constance STEINER or leave a voicemail for her. *Remember to allow at least 48 business hours for medication refill requests. documented in this encounterWROBIT Work Phone: 1(668) 495-544212-01-2022 NoteHISTORY AND PHYSICAL EXAMINATION Date:06/07/2022 HISTORY: The [...] and go forward with her elective procedure.[id number] NoteOPERATIVE NOTE OPERATION DATE: 06/08/2022 SURGEON: Dawood [...] ensuring mobility, phacoemulsification was performed in a alastlk-wvh-gnyhpz-type fashion. After all nuclear material had been [...] up the following day for postoperative care.[facility] [id number] NoteOPERATIVE NOTE OPERATION DATE: 04/13/2022 SURGEON: Dawood [...] ensuring mobility, phacoemulsification was performed in a wfeolzg-tex-fastyl-type fashion. After all nuclear material had been [...] up the following day for postoperative care.[facility] [id number] NoteHISTORY AND PHYSICAL EXAMINATION Date:04/12/2022 HISTORY: The [...] and go forward with her elective procedure.[facility] [id number] Evaluation note* Encounter Date Diagnosis Assessment Notes [...] Patient care instructions given in writting by [facility] Care At Home document [employer] Other Evaluation note* Diagnosis Lumbar spondylosis- Primary Lumbosacral spondylosis without myelopathy documented in this encounter [facility] Work Phone: evaluation note* Diagnosis Onset Date Resolution Status Acute electrocardiogram changes acute Chest pain acute Fracture of rib of left side acute GERD (gastroesophageal reflux disease) acute Hypertension acute Type 2 diabetes mellitus acu [facility] Work Phone: Evaluation note* Diagnosis Diabetes mellitus with peripheral vascular disease ([facility]) [facility] encounter [facility]* Diagnosis Closed fracture of multiple ribs of right side with routine healing, subsequent encounter- Primary Nonrheumatic aortic valve stenosis Spinal stenosis at L4-L5 level documented [facility] this [facility]* Diagnosis Depression with anxiety Dysthymic disorder Anxiety Anxiety state, unspecified documented [facility] this [facility]* Diagnosis COVID- Primary documented in this [facility]* Diagnosis Spinal stenosis at L4-L5 level documented [facility] this encounter [facility]* Diagnosis Gastroenteritis- Primary Other and unspecified noninfectious gastroenteritis and colitis Diabetes mellitus with peripheral vascular disease ([facility]) NSTEMI (non-ST elevated myocardial infarction) ([facility]) Acute myocardial infarction, subendocardial infarction, episode of care unspecified Chronic hypoxic respiratory failure ([facility]) Chronic diastolic congestive heart failure ([facility]) Mass of left lung Oxygen dependent Dependence on supplemental oxygen Anxiety Anxiety state, unspecified Chronic a-fib ([facility]) Atrial fibrillation Type 2 diabetes mellitus with stage 3b chronic kidney disease, with long-term current use of insulin (HCC) ([facility]) Discomfort of left ear Chronic kidney disease, stage 3b (HCC) ([facility]) Chronic obstructive pulmonary disease, unspecified ([facility]) Panlobular emphysema ([facility]) Other emphysema documented in this encounter [facility] Diagnosis Chronic combined systolic and diastolic congestive heart failure ([facility]/H[facility])- Primary Spinal stenosis at L4-L5 level Chronic a-fib (CMS/HCC) Atrial fibrillation Stage 3b chronic kidney disease (HCC) ([facility]) documented in this encounter [facility] general [...] see above list Hospitalization History chf x3 [employer] Other Hospital Discharge instructions Additional Instructions alf facility to manage care: DNR [facility] no intubation PT/OT to eval and treat Routine vital signs Maintain high risk falls precautions Monitor cardio assessment -- angina Care to be managed by SNF provider [facility] Work Phone: Summary Purpose [...] section and content) DATE CREATED AUTHOR 08/19/2021 [facility] Me dical Specialist DATE CREATED AUTHOR AUTHOR'S ORGANIZ ATION 12/26/2021 [facility] DATE CREATED AUTHOR AUTHOR'S ORGANIZ ATION 12/15/2022 [facility] DATE CREATED AUTHOR AUTHOR'S ORGANIZ ATION 05/18/2023 [facility] DATE CREATED AUTHOR AUTHOR'S ORGANIZ ATION 08/08/2023 [facility] DATE CREATED AUTHOR AUTHOR'S ORGANIZ ATION 05/03/2024 [facility] DATE CREATED AUTHOR AUTHOR'S ORGANIZ ATION 07/28/2024 [place] DATE CREATED AUTHOR AUTHOR'S ORGANIZ ATION 08/28/2024 [facility] DATE CREATED AUTHOR AUTHOR'S ORGANIZ ATION 08/29/2024 [facility] dical Specialists EPIC REASON FOR VISIT (unrecogniz ed section and content) Specialty Diagnoses / Procedures Referred By Williams t Referred To Contact Diagnoses Lumbar spondylosis Lumbar spondylosis [M47.816] Procedures [place] NJX DX/THER AGT PVRT FACET JT LMBR/SAC 1 LEVEL [place] NJX DX/THER AGT PVRT FACET JT LMBR/SAC 2ND LEVEL B/L LUMBAR MEDIAL BRANCH BLOCK L3 L4 L5 B/L LUMBAR MEDIAL BRANCH BLOCK L3 L4 L5 Kd Hines MD [address] [place] [address] [facility] Phone: [phone] Referral ID Status Reason Start Date Expiration Date Visits Re quested Visits Authorized [id number] 1 1 Reason Comments Follow-up [facility] stay 04/11/24-04/13/24 after fall at home with rib fractures discharged to [facility] 04/24/24-04/25/24 dx: [facility]ischarged [facility] 04/[facility]/24 Shortness of Breath Had echo yesterday o rdered by cardiology has appt with cardiology next weekUsing 02 continuously Med Refill Hydrocodone--DM clyd e Reason Onset Date Comments Med Refill 06/23/2024 Reason Onset Date Comments covid 03/17/2024 Reason Onset Date Comments Med Refill 06/26/2024 Reason Comments Anxiety Having bad anxiety a t night and Alprazolam is not helping. Reason Comments Follow-up Pain med/controlled med Diabetes PRN Active and Recently Administ ered Medications [...] Care Teams (unrecognized sec tion and content) Ophthalmic Pathologist Relationship Specialty Start Date End Date Jasvir León MD [address] [place] [address] PCP - General Internal Medicine 05/07/23 Team [...] April 25, 2024 End: April 25, 2024 Ophthalmic Pathologist Relationship Specialty Start Date End Date Jasvir León MD [address] [place] [address] PCP - General Internal Medicine 11/20/22 Jasvir León MD [address] [place] [address] PCP - ACO Reach 11/30/22 Ophthalmic Pathologist Relationship Specialty Start Date End Date Jasvir León MD [address] [place] [address] PCP - General Internal Medicine 11/20/22 Jasvir León MD [address] [place] [address] PCP - ACO Reach 11/30/22 Ophthalmic Pathologist Relationship Specialty Start Date End Date Jasvir León MD [address] [place] [address] PCP - General Internal Medicine 11/20/22 Jasvir León MD [address] [place] [address] PCP - ACO Reach 11/30/22 Ophthalmic Pathologist Relationship Specialty Start Date End Date Jasvir León MD [address] [place] [address] PCP - General Internal Medicine 11/20/22 Jasvir León MD [address] [place] [address] PCP - ACO Reach 11/30/22 Ophthalmic Pathologist Relationship Specialty Start Date End Date Jasvir León MD [address] [place] [address] PCP - General Internal Medicine 11/20/22 Jasvir León MD [address] [place] [address] PCP - ACO Reach 11/30/22 Ophthalmic Pathologist Relationship Specialty Start Date End Date Jasvir León MD [address] [place] [address] PCP - General Internal Medicine 11/20/22 Jasvir León MD [address] [place] [address] PCP - ACO Reach 11/30/22 Ophthalmic Pathologist Relationship Specialty Start Date End Date Jasvir León MD [address] [place] [address] PCP - General Internal Medicine 11/20/22 Jasvir León MD [address] [place] [address] PCP - ACO Reach 11/30/22 Ophthalmic Pathologist Relationship Specialty Start Date End Date Jasvir León MD [address] [place] [address] PCP - General Internal Medicine 11/20/22 Jasvir León MD [address] [place] [address] PCP - ACO Reach 11/30/22 Ophthalmic Pathologist Relationship Specialty Start Date End Date Jasvir León MD [address] [place] [address] PCP - General Internal Medicine 11/20/22 Jasvir León MD [address] [place] [address] PCP - ACO Reach 11/30/22 Leora Pollard RN Registered Nurse Family Medicine 07/10/24 Ophthalmic Pathologist Relationship Specialty Start Date End Date Jasvir León MD [address] [place] [address] PCP - General Internal Medicine 11/20/22 Jasvir León MD [address] [place] [address] PCP - ACO Reach 11/30/22 Leora Pollard, RN Registered Nurse Family Medicine 07/10/24 Ophthalmic Pathologist Relationship Specialty Start Date End Date Jasvir León MD [address] [place] [address] PCP - General Internal Medicine 11/20/22 Jasvir León MD [address] [place] [address] PCP - ACO Reach 11/30/22 Leora Pollard RN Registered Nurse Family Medicine 07/10/24 Ophthalmic Pathologist Relationship Specialty Start Date End Date Jasvir León MD [address] [place] [address] PCP - General Internal Medicine 11/20/22 Jasvir León MD [address] [place] [address] PCP - ACO Reach 11/30/22 Leora Pollard RN Registered Nurse Family Medicine 07/10/24 Ophthalmic Pathologist Relationship Specialty Start Date End Date Jasvir León MD [address] [place] [address] PCP - General Internal Medicine 11/20/22 Jasvir León MD [address] [place] [address] PCP - ACO Reach 11/30/22 Leora Pollard RN Registered Nurse Family Medicine 07/10/24 Ophthalmic Pathologist Relationship Specialty Start Date End Date Jasvir León MD [address] [place] [address] PCP - General Internal Medicine 11/20/22 Jasvir León MD [address] [place] [address] PCP - ACO Reach 11/30/22 Leora Pollard RN Registered Nurse Family Medicine 07/10/24 FOR RECORDS [...] BE BASED ON THE PRIMARY CLINICAL RECORDS. [facility]. provides no warranty or guarantee of the accuracy or completeness of information in this document.
[2024-09-11 12:18] LABS: Anion Gap 9.5; BUN Creatinine Ratio 23.8; Calcium 9.3 mg/dL (8.5-10.1); Carbon Dioxide 36.5 mmol/L (21.0-32.0); Chloride 97 mmol/L (98-107); Estimated GFR (African America 37 (>=60 mL/min/1.73m^2); Estimated GFR (Non-African Ame 31 (>=60 mL/min/1.73m^2); Glucose 107 mg/dL (74-106); Sodium 139 mmol/L (136-145)
== END 2024-09-11 11:51 | disposition home or self-care (01) ==
LOC: LAB 11:51
PROVIDERS: PCP Internal Medicine; Visit Provider Internal Medicine Interventional Cardiology
DX: I50.32 Chronic diastolic (congestive) heart failure (principal)
CPT/HCPCS: 36415; 80048

== ENCOUNTER 2024-10-08 12:46 | Outpatient (OUT) | payer MEDICARE, OTHER, SELFPAY ==
[2024-10-08 13:18] LABS: Hemoglobin 10.6 g/dL (12.0-16.0)
[2024-10-08] MEDS: ALBUTEROL SULFATE 2.5 MG/3 ML VIAL NEB IH (13:59)
--- NOTE | 2024-10-08 14:00 | RT_ITS ---
[facility] Test Date: 2024-10-08 Pat Name: KATHY VILLEGAS Department: Room: - Gender: Female Meteorology Teacher: Jose De Jesus Tran RRT : 1940 Requested By: Roland Tan Order Number: [id number] Reading MD: Roland Tan Interpretive Statements Pulmonary function testing was completed according to ATS criteria. Findings were considered accurate and reproducible, with exception of DLCO which did not meet ATS standards. Both pre- and post-bronchodilator values utilized for spirometry. Spirometry (based on pre-bronchodilator values): -FEV1/FVC: Reduced @ 68% -FEV1: Low normal @ 82% -FVC: Normal @ 87% -There is no significant bronchodilator response. Lung volumes by plethysmography: -RV: Reduced @ 79% -TLC: Mildly reduced @ 78% Diffusion capacity: -DLCO: Very severe reduction @ 29% when corrected for Hb 10.6g/dL Impressions: -Spirometry suggests mild-moderate obstruction without a bronchodilator response. There is a concomitant restrictive disorder with a mildly decreased TLC. Very severe diffusion impairment out of proportion with the other studies - DLCO may be artificially decreased d/t not meeting ATS standards. Overall study may represent COPD/emphysema +/- concomitant restriction-causing disorder such as ILD or cardiovascular pulmonary disease. Clinical correlation required. Electronically Signed On 10-09-2024 16:33:43 EDT by Roland Tan
== END 2024-10-08 12:47 | disposition home or self-care (01) ==
LOC: CARD 12:46
PROVIDERS: PCP Internal Medicine; Visit Provider Internal Medicine
DX: J43.2 Centrilobular emphysema (principal)
CPT/HCPCS: 36415; 85018; 94060; 94726; 94729

== ENCOUNTER 2024-11-11 10:29 | Inpatient (IN) | payer MEDICARE, OTHER, SELFPAY ==
[2024-11-11] VITALS (31 sets, daily range): BP systolic 75–128; BP diastolic 50–72; PULSE 64–114; TEMP 36.6–37.1; O2SAT 86–99; BMI 25.5; BMI 25.4
--- NOTE | 2024-11-11 10:41 | ECG_ITS ---
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
[2024-11-11 11:04] LABS: Hematocrit 30.4 % (36.0-48.0); Hemoglobin 9.1 g/dL (12.0-16.0); Mean Corpuscular HGB Conc 29.9 g/dL (29.9-35.2); Mean Corpuscular Hemoglobin 26.5 pg (26.7-34.0); Mean Corpuscular Volume 88.6 fL (81.0-99.0); Mean Platelet Volume 9.6 fL (9.5-13.5); Platelet Count 275 10^3/uL (150-450); Red Blood Count 3.43 10^6/uL (4.20-5.40); Red Cell Distribution Width 16.6 % (11.0-15.0); White Blood Count 10.4 10^3/uL (4.0-11.0)
[2024-11-11] MEDS: 0.9 % SODIUM CHLORIDE 1,000 ML 1000 ML IV (11:06)
[2024-11-11 11:18] LABS: INR 1.08; Prothrombin Time 11.4 sec (9.0-11.6)
[2024-11-11 11:22] LABS: Alanine Aminotransferase 7 U/L (14-59); Albumin Globulin Ratio 0.5; Albumin Level 2.5 g/dL (3.4-5.0); Alkaline Phosphatase 92 U/L (46-116); Anion Gap 8.2; Aspartate Amino Transferase 12 U/L (15-37); BUN Creatinine Ratio 24.4; Bilirubin Total 0.5 mg/dL (0.2-1.0); Calcium 8.9 mg/dL (8.5-10.1); Carbon Dioxide 32.7 mmol/L (21.0-32.0); Chloride 97 mmol/L (98-107); Estimated GFR (African America 30 (>=60 mL/min/1.73m^2); Estimated GFR (Non-African Ame 25 (>=60 mL/min/1.73m^2); Globulin 5.1 g/dL; Glucose 194 mg/dL (74-106); Potassium 3.9 mmol/L (3.5-5.1); Sodium 134 mmol/L (136-145); Total Protein 7.6 g/dL (6.4-8.2); Troponin I High Sensitivity 21.6 pg/mL (4.0-51.3)
[2024-11-11 11:24] LABS: Lymphocytes Absolute Manual 0.93 10^3/uL (1.20-3.80); Monocytes Absolute Manual 0.52 10^3/uL (0.30-0.80); Segmented Neut Absolute Manual 8.73 10^3/uL (1.4-6.5)
[2024-11-11 11:25] LABS: Lactate/Lactic Acid 2.2 mmol/L (0.4-2.0)
[2024-11-11 11:49] LABS: Digoxin 1.2 ng/mL (0.9-2.0)
--- NOTE | 2024-11-11 12:16 | ED.WEAKNESS1 ---
HPI - Weakness General Chief complaint: Weakness Stated complaint: WEAKNESS Time Seen by Provider: 11/11/24 10:40 Source: patient Mode of arrival: ambulance Limitations: no limitations History of Present Illness HPI Narrative: The patient is a 84-year-old female who is coming to the ER after she had multiple falls over the last 2 weeks, patient was evaluated by her home health care nurse and the the nurse called the EMS because the patient was hypotensive The patient also mentions some abdominal pain mostly epigastric, no nausea no vomiting, Related Data Home Medications ?Medication ?Instructions ?Recorded ?Confirmed alprazolam 0.25 mg tablet 0.25 mg PO .QHS PRN anxiety 11/17/23 11/11/24 atorvastatin 20 mg tablet 20 mg PO QPM 11/17/23 11/11/24 bupropion HCl 150 mg tablet,12 hr 150 mg PO BID 11/17/23 11/11/24 sustained-release digoxin 125 mcg (0.125 mg) tablet 0.125 mg PO .QD 11/17/23 08/15/24 escitalopram oxalate 10 mg tablet 10 mg PO DAILY 11/17/23 11/11/24 gabapentin 100 mg capsule 100 mg PO TID 11/17/23 11/11/24 insulin lispro protamine-lispro 8 unit subcut BID 11/17/23 08/15/24 100 unit/mL (75-25) subcutaneous pen omeprazole 40 mg capsule,delayed 40 mg PO DAILY 11/17/23 11/11/24 release ropinirole 0.25 mg tablet 0.25 mg PO QPM 11/17/23 11/11/24 torsemide 20 mg tablet 60 mg PO DAILY 11/17/23 11/11/24 carvedilol 12.5 mg tablet (Coreg) 12.5 mg PO BID 08/15/24 11/11/24 amitriptyline 25 mg tablet 25 mg PO .QHS 11/11/24 11/11/24 budesonide 160 mcg-glycopyr 9 2 inh inhalation DAILY 11/11/24 11/11/24 mcg-formot 4.8 mcg/actuation HFA inhaler (Breztri Aerosphere) Allergies Allergy/AdvReac Type Severity Reaction Status Date / Time codeine Allergy Intermediate Unknown Verified 08/14/24 21:41 Penicillins Allergy Intermediate Unknown Verified 08/14/24 21:41 Review of Systems ROS Status of ROS 10 or more systems reviewed and unremarkable except as noted in history and below [facility] Medical History (Updated 11/11/24 @ 12:52 by Madison Doherty MD) NSTEMI (non-ST elevated myocardial infarction) ?I21.4 - Non-ST elevation (NSTEMI) myocardial infarction (ICD-10) Acute on chronic renal failure ?N17.9 - Acute kidney failure, unspecified (ICD-10) ?N18.9 - Chronic kidney disease, unspecified (ICD-10) Gastroenteritis ?K52.9 - Noninfective gastroenteritis and colitis, unspecified (ICD-10) Dehydration ?E86.0 - Dehydration (ICD-10) Nausea, vomiting, and diarrhea ?R11.2 - Nausea with vomiting, unspecified (ICD-10) ?R19.7 - Diarrhea, unspecified (ICD-10) GERD without esophagitis ?K21.9 - Gastro-esophageal reflux disease without esophagitis (ICD-10) Depression ?F32.A - Depression, unspecified (ICD-10) Chronic hypoxic respiratory failure ?J96.11 - Chronic respiratory failure with hypoxia (ICD-10) Multiple rib fractures ?S22.49XA - Multiple fractures of ribs, unspecified side, initial encounter for closed fracture (ICD-10) Type 2 diabetes mellitus with hyperglycemia ?E11.65 - Type 2 diabetes mellitus with hyperglycemia (ICD-10) Aortic stenosis, moderate ?I35.0 - Nonrheumatic aortic (valve) stenosis (ICD-10) Persistent atrial fibrillation ?I48.19 - Other persistent atrial fibrillation (ICD-10) Chronic heart failure with preserved ejection fraction (HFpEF) ?I50.32 - Chronic diastolic (congestive) heart failure (ICD-10) Hypertension ?I10 - Essential (primary) hypertension (ICD-10) HLD (hyperlipidemia) ?E78.5 - Hyperlipidemia, unspecified (ICD-10) CKD (chronic kidney disease) stage 3, GFR 30-59 ml/min ?N18.30 - Chronic kidney disease, stage 3 unspecified (ICD-10) Hypothyroid ?E03.9 - Hypothyroidism, unspecified (ICD-10) Acute thoracic back pain ?M54.6 - Pain in thoracic spine (ICD-10) Closed compression fracture of L1 vertebra ?S32.010A - Wedge compression fracture of first lumbar vertebra, initial encounter for closed fracture (ICD-10) Lung mass ?R91.8 - Other nonspecific abnormal finding of lung field (ICD-10) Compression fracture of L1 lumbar vertebra ?S32.010A - Wedge compression fracture of first lumbar vertebra, initial encounter for closed fracture (ICD-10) Acute pain of left foot ?M79.672 - Pain in left foot (ICD-10) 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 ?F32.89 - Other specified depressive episodes (ICD-10) Anxiety ?F41.9 - Anxiety disorder, unspecified (ICD-10) Diabetes ?E11.9 - Type 2 diabetes mellitus without complications (ICD-10) Atrial fibrillation ?I48.91 - Unspecified atrial fibrillation (ICD-10) Surgical History Status post aortic valve repair ?Z98.890 - Other specified postprocedural states (ICD-10) S/P ablation of atrial fibrillation ?Z98.890 - Other specified postprocedural states (ICD-10) ?Z86.79 - Personal history of other diseases of the circulatory system (ICD-10) History of carpal tunnel surgery of right wrist ?Z98.890 - Other specified postprocedural states (ICD-10) H/O: hysterectomy ?Z90.710 - Acquired absence of both cervix and uterus (ICD-10) Aortic valve replaced ?Z95.2 - Presence of prosthetic heart valve (ICD-10) History of cholecystectomy ?Z90.49 - Acquired absence of other specified parts of digestive tract (ICD-10) Family History Mother Family history of CHF (congestive heart failure) Father Family history of diabetes mellitus Sister Family history of diabetes mellitus Son Family history of myocardial infarction Social History Within the past year, how often did you have a drink containing alcohol: monthly or less Within the past year, how many standard drinks containing alcohol did you have on a typical day: 1 or 2 Within the past year, how often did you have six or more drinks on one occasion: never Total score: 0 Score interpretation: A score less than 3 is consistent with normal alcohol consumption. Smoking status: Former smoker Non-prescribed substance use: denies use Previous occupational history: retired Highest level of school completed/degree received: high school graduate Are you now , , , , never or living with a partner: In a typical week, how many times do you talk on the telephone with family, friends, or neighbors: 3 or more times per week How often do you get together with friends or relatives: 3 or more times per week How often do you attend faith or episcopal services: 4 or more times per year Do you belong to any clubs or organizations such as faith groups unions, fraternal or athletic groups, or school groups: no Total score: 2 Score interpretation: A score of greater than or equal to 2 indicates the lowest level of social isolation. Little interest or pleasure in doing things: not at all Feeling down, depressed, or hopeless: not at all Feel stressed/tense/nervous/anxious/difficulty sleeping: not at all Gender Identity: female Exam Narrative Exam Narrative: Nurses notes and vital signs reviewed and patient is not hypoxic. General: Well-appearing and in no apparent distress. Skin: Warm, dry, no pallor noted. No rash. Head: Normocephalic, atraumatic. Neck: Supple, non-tender. Eye: Pupils are equal, round and EOMI. No scleral icterus. Ears, Nose, Mouth, and Throat: TM are clear, no nasal mucosal hypertrophy. Oral mucosa is moist, no posterior oropharynx erythema, uvula is mid-line Cardiovascular: Regular Rate and Rhythm without murmur, gallop or rub. Respiratory: No accessory muscle use or respiratory distress. Lungs are clear to auscultation, no wheezing, rales or rhonchi Chest Wall: no tenderness Back: No midline thoracic or lumbar vertebral tenderness. No CVA tenderness Musculoskeletal: normal ROM, no calf or popliteal tenderness, no lower extremity edema/swelling GI: Abdomen is soft, non-distended. Normal bowel sounds. No masses appreciated. No tenderness to palpation. No rebound, guarding, or rigidity noted. Neurological: A&O x4. No cranial nerve dysfunction observed. Constitutional Vital Signs, click to edit/add: Last Vital Signs Temp 98.2 F 11/11/24 10:33 Pulse 76 11/11/24 12:20 Resp 19 11/11/24 12:20 BP 125/61 11/11/24 11:30 Pulse Ox 98 11/11/24 12:20 O2 Del Method Nasal Cannula 11/11/24 10:38 O2 Flow Rate 2 11/11/24 10:38 Course Vital Signs Vital signs: Vital Signs Temperature 98.2 F 11/11/24 10:33 Pulse Rate 64 11/11/24 10:33 Respiratory Rate 20 11/11/24 10:33 Blood Pressure 75/50 L 11/11/24 10:33 Temperature 98.2 F 11/11/24 10:33 Pulse Rate 76 11/11/24 12:20 Respiratory Rate 19 11/11/24 12:20 Blood Pressure 125/61 11/11/24 11:30 Pulse Oximetry 98 11/11/24 12:20 Oxygen Delivery Method Nasal Cannula 11/11/24 10:38 Oxygen Delivery Flow Rate 2 11/11/24 10:38 MDM - Weakness MDM Narrative Medical decision making narrative: EKG showing A-fib with no ST elevation The patient chest x-ray is concerning for left side lobar pneumonia CBC showed no leukocytosis and the chemistry showing some acute kidney injury with some hyponatremia The patient lactic acid 2.2 but with her current presentation her blood pressure is a lot better after 1 L of fluid The patient was started on sepsis management initially with the blood culture obtained but with the fact that her age and the risk of fluid overload the patient will be treated cautiously with fluid Patient started on levofloxacin IV Patient blood culture obtained and her case was discussed with who agreed with the above plan Lab Data Labs: Lab Results 11/11/24 Range/Units 10:50 WBC 10.4 (4.0-11.0) 10^3/uL RBC 3.43 L (4.20-5.40) 10^6/uL Hgb 9.1 L (12.0-16.0) g/dL Hct 30.4 L (36.0-48.0) % MCV 88.6 (81.0-99.0) fL MCH 26.5 L (26.7-34.0) pg MCHC 29.9 (29.9-35.2) g/dL RDW 16.6 H (11.0-15.0) % Plt Count 275 (150-450) 10^3/uL MPV 9.6 (9.5-13.5) fL Seg Neuts % (Manual) 84.0 H (43.0-75.0) Lymphocytes % (Manual) 9.0 L (20.5-60.0) % Monocytes % (Manual) 5.0 (1.7-12.0) % Eosinophils % (Manual) 0.0 L (0.9-7.0) % Basophils % (Manual) 2.0 (0.2-2.0) % Neutrophils # (Manual) 8.73 H (1.4-6.5) 10^3/uL Lymphocytes # (Manual) 0.93 L (1.20-3.80) 10^3/uL Monocytes # (Manual) 0.52 (0.30-0.80) 10^3/uL Eosinophils # (Manual) 0.00 (0.00-0.70) 10^3/uL Basophils # (Manual) 0.20 H (0.00-0.10) 10^3/uL PT 11.4 (9.0-11.6) sec INR 1.08 Sodium 134 L (136-145) mmol/L Potassium 3.9 (3.5-5.1) mmol/L Chloride 97 L (98-107) mmol/L Carbon Dioxide 32.7 H (21.0-32.0) mmol/L Anion Gap 8.2 BUN 47.0 H (7.0-18.0) mg/dL Creatinine 1.93 H (0.55-1.02) mg/dL Est GFR ( Amer) 30 L (>=60 mL/min/1.73m^2) Est GFR (Non-Af Amer) 25 L (>=60 mL/min/1.73m^2) BUN/Creatinine Ratio 24.4 Glucose 194 H (74-106) mg/dL Lactate 2.2 H* (0.4-2.0) mmol/L Calcium 8.9 (8.5-10.1) mg/dL Total Bilirubin 0.5 (0.2-1.0) mg/dL AST 12 L (15-37) U/L ALT 7 L (14-59) U/L Alkaline Phosphatase 92 (46-116) U/L Troponin I High Sens 21.6 (4.0-51.3) pg/mL Total Protein 7.6 (6.4-8.2) g/dL Albumin 2.5 L (3.4-5.0) g/dL Globulin 5.1 g/dL Albumin/Globulin Ratio 0.5 Digoxin 1.2 (0.9-2.0) ng/mL Discharge Plan Discharge Chief Complaint: Weakness Clinical Impression: Pneumonia, CATHY (acute kidney injury), Falls Patient Disposition: Admitted As Inpatient Time of Disposition Decision: 12:52
[2024-11-11] MEDS: LEVOFLOXACIN 500 MG/100 ML-D5W PREMIX 100 MG IV (12:54)
--- NOTE | 2024-11-11 13:27 | PM.HP ---
HPI H&P: HPI History of Present Illness Chief complaint: WEAKNESS Narrative: 84-year-old female with history of COPD, chronic respiratory failure with hypoxia who lives at home reports generalized weakness and frequent falls for past 1 week. Patient lives at home by herself and has a home nurse who visits her every week. Patient reports that she had 3 falls past 1 week. She did not lose consciousness but reports feeling lightheaded and overall weak before her falls. She has chronic cough but feels that her cough is worse than usual. Upon evaluation in ED, patient was initially hypotensive with blood pressure as low as 70/50. She was given 1 L IV fluid bolus. Patient's imaging is concerning for right lower lobe pneumonia. Patient denies recent hospital admission, recent antibiotic use. She denies fever, shortness of breath. Hospitalist team consulted for admission for hypotension secondary to hypovolemia/pneumonia. At the time of my evaluation, patient was fairly comfortable, on 2 L oxygen via nasal cannula and did not have any active complaints to offer except for generalized weakness and not feeling well overall. Opioid HPI Opioid Management Most Recent Pain and Opioid Data: Last Pain Scale 4 Today, 10:39 Last ED Pain Assessment Today, 10:39 Last ORT Total Score 0 08/15/24, 01:08 Last ORT Risk Category Low Risk 08/15/24, 01:08 Review of Systems ROS Status of ROS 10 or more systems reviewed and unremarkable except as noted in history and below [facility] Medical History (Updated 11/11/24 @ 13:39 by Shaikh Harshad MD) CKD stage 3b, GFR 30-44 ml/min ?N18.32 - Chronic kidney disease, stage 3b (ICD-10) NSTEMI (non-ST elevated myocardial infarction) ?I21.4 - Non-ST elevation (NSTEMI) myocardial infarction (ICD-10) Acute on chronic renal failure ?N17.9 - Acute kidney failure, unspecified (ICD-10) ?N18.9 - Chronic kidney disease, unspecified (ICD-10) Gastroenteritis ?K52.9 - Noninfective gastroenteritis and colitis, unspecified (ICD-10) Dehydration ?E86.0 - Dehydration (ICD-10) Nausea, vomiting, and diarrhea ?R11.2 - Nausea with vomiting, unspecified (ICD-10) ?R19.7 - Diarrhea, unspecified (ICD-10) GERD without esophagitis ?K21.9 - Gastro-esophageal reflux disease without esophagitis (ICD-10) Depression ?F32.A - Depression, unspecified (ICD-10) Chronic hypoxic respiratory failure ?J96.11 - Chronic respiratory failure with hypoxia (ICD-10) Multiple rib fractures ?S22.49XA - Multiple fractures of ribs, unspecified side, initial encounter for closed fracture (ICD-10) Type 2 diabetes mellitus with hyperglycemia ?E11.65 - Type 2 diabetes mellitus with hyperglycemia (ICD-10) Aortic stenosis, moderate ?I35.0 - Nonrheumatic aortic (valve) stenosis (ICD-10) Persistent atrial fibrillation ?I48.19 - Other persistent atrial fibrillation (ICD-10) Chronic heart failure with preserved ejection fraction (HFpEF) ?I50.32 - Chronic diastolic (congestive) heart failure (ICD-10) Hypertension ?I10 - Essential (primary) hypertension (ICD-10) HLD (hyperlipidemia) ?E78.5 - Hyperlipidemia, unspecified (ICD-10) CKD (chronic kidney disease) stage 3, GFR 30-59 ml/min ?N18.30 - Chronic kidney disease, stage 3 unspecified (ICD-10) Hypothyroid ?E03.9 - Hypothyroidism, unspecified (ICD-10) Acute thoracic back pain ?M54.6 - Pain in thoracic spine (ICD-10) Closed compression fracture of L1 vertebra ?S32.010A - Wedge compression fracture of first lumbar vertebra, initial encounter for closed fracture (ICD-10) Lung mass ?R91.8 - Other nonspecific abnormal finding of lung field (ICD-10) Compression fracture of L1 lumbar vertebra ?S32.010A - Wedge compression fracture of first lumbar vertebra, initial encounter for closed fracture (ICD-10) Acute pain of left foot ?M79.672 - Pain in left foot (ICD-10) 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 ?F32.89 - Other specified depressive episodes (ICD-10) Anxiety ?F41.9 - Anxiety disorder, unspecified (ICD-10) Diabetes ?E11.9 - Type 2 diabetes mellitus without complications (ICD-10) Atrial fibrillation ?I48.91 - Unspecified atrial fibrillation (ICD-10) Surgical History Status post aortic valve repair ?Z98.890 - Other specified postprocedural states (ICD-10) S/P ablation of atrial fibrillation ?Z98.890 - Other specified postprocedural states (ICD-10) ?Z86.79 - Personal history of other diseases of the circulatory system (ICD-10) History of carpal tunnel surgery of right wrist ?Z98.890 - Other specified postprocedural states (ICD-10) H/O: hysterectomy ?Z90.710 - Acquired absence of both cervix and uterus (ICD-10) Aortic valve replaced ?Z95.2 - Presence of prosthetic heart valve (ICD-10) History of cholecystectomy ?Z90.49 - Acquired absence of other specified parts of digestive tract (ICD-10) Family History Mother Family history of CHF (congestive heart failure) Father Family history of diabetes mellitus Sister Family history of diabetes mellitus Son Family history of myocardial infarction Social History Within the past year, how often did you have a drink containing alcohol: monthly or less Within the past year, how many standard drinks containing alcohol did you have on a typical day: 1 or 2 Within the past year, how often did you have six or more drinks on one occasion: never Total score: 0 Score interpretation: A score less than 3 is consistent with normal alcohol consumption. Smoking status: Former smoker Non-prescribed substance use: denies use Previous occupational history: retired Highest level of school completed/degree received: high school graduate Are you now , , , , never or living with a partner: In a typical week, how many times do you talk on the telephone with family, friends, or neighbors: 3 or more times per week How often do you get together with friends or relatives: 3 or more times per week How often do you attend scientology or restorationism services: 4 or more times per year Do you belong to any clubs or organizations such as scientology groups unions, fraternal or athletic groups, or school groups: no Total score: 2 Score interpretation: A score of greater than or equal to 2 indicates the lowest level of social isolation. Little interest or pleasure in doing things: not at all Feeling down, depressed, or hopeless: not at all Feel stressed/tense/nervous/anxious/difficulty sleeping: not at all Gender Identity: female Meds Home Medications and Allergies Home Medications ?Medication ?Instructions ?Recorded ?Confirmed ?Type alprazolam 0.25 mg tablet 0.25 mg PO .QHS PRN anxiety 11/17/23 11/11/24 History atorvastatin 20 mg tablet 20 mg PO QPM 11/17/23 11/11/24 History bupropion HCl 150 mg tablet,12 hr 150 mg PO BID 11/17/23 11/11/24 History sustained-release digoxin 125 mcg (0.125 mg) tablet 0.125 mg PO .QD 11/17/23 08/15/24 History escitalopram oxalate 10 mg tablet 10 mg PO DAILY 11/17/23 11/11/24 History gabapentin 100 mg capsule 100 mg PO TID 11/17/23 11/11/24 History insulin lispro protamine-lispro 8 unit subcut BID 11/17/23 08/15/24 History 100 unit/mL (75-25) subcutaneous pen omeprazole 40 mg capsule,delayed 40 mg PO DAILY 11/17/23 11/11/24 History release ropinirole 0.25 mg tablet 0.25 mg PO QPM 11/17/23 11/11/24 History torsemide 20 mg tablet 60 mg PO DAILY 11/17/23 11/11/24 History carvedilol 12.5 mg tablet (Coreg) 12.5 mg PO BID 08/15/24 11/11/24 History amitriptyline 25 mg tablet 25 mg PO .QHS 11/11/24 11/11/24 History budesonide 160 mcg-glycopyr 9 2 inh inhalation DAILY 11/11/24 11/11/24 History mcg-formot 4.8 mcg/actuation HFA inhaler (Breztri Aerosphere) Allergies Allergy/AdvReac Type Severity Reaction Status Date / Time codeine Allergy Intermediate Unknown Verified 08/14/24 21:41 Penicillins Allergy Intermediate Unknown Verified 08/14/24 21:41 Exam Constitutional Vital Signs, click to edit/add: Last Vital Signs Temp 98.2 F 11/11/24 10:33 Pulse 81 11/11/24 13:10 Resp 16 11/11/24 13:10 BP 118/52 11/11/24 13:01 Pulse Ox 93 L 11/11/24 13:10 O2 Del Method Nasal Cannula 11/11/24 10:38 O2 Flow Rate 2 11/11/24 10:38 Documenting provider has reviewed patient's vital signs: yes Common normals: no apparent distress and oriented x3 General appearance: cooperative HENMT Common normals: normocephalic and head/scalp atraumatic Head and scalp: normocephalic and atraumatic Eye Common normals: conjunctivae normal and no scleral icterus Conjunctiva: conjunctiva(e) normal Respiratory Common normals: normal respiratory effort and no use of accessory muscles Effort & inspection: able to speak in complete sentences Auscultation: rales on the right at the base Cardio Common normals: regular rate, S1 normal heart sound and S2 normal heart sound Rate: regular rate Heart sounds: S1 normal and S2 normal GI Common normals: Normal to inspection, nondistended, normoactive bowel sounds present, soft to palpation, non-tender and no hepatosplenomegaly Palpation: soft and no hepatosplenomegaly Extremity Common normals: no clubbing, cyanosis or edema Neuro Common normals: oriented x3, moves all extremities and no focal motor deficits Psych Common normals: mental status grossly normal, denies hallucinations, denies homicidal ideation and denies suicidal ideation Results Labs Labs: Short CBC 11/11/24 Range/Units 10:50 WBC 10.4 (4.0-11.0) 10^3/uL Hgb 9.1 L (12.0-16.0) g/dL Hct 30.4 L (36.0-48.0) % Plt Count 275 (150-450) 10^3/uL BMP 11/11/24 10:50 Sodium 134 L Potassium 3.9 Chloride 97 L Carbon Dioxide 32.7 H BUN 47.0 H Creatinine 1.93 H Glucose 194 H Calcium 8.9 Liver Function 11/11/24 Range/Units 10:50 Total Bilirubin 0.5 (0.2-1.0) mg/dL AST 12 L (15-37) U/L ALT 7 L (14-59) U/L Alkaline Phosphatase 92 (46-116) U/L Albumin 2.5 L (3.4-5.0) g/dL Assessment and Plan Assessment and Plan (1) Right lower lobe pneumonia: Assessment and Plan: RLL PNA on CXR, CT chest. F/u sputum, blood cx Started on Levaquin Qualifiers: Pneumonia type: due to unspecified organism Qualified Code(s): J18.9 - Pneumonia, unspecified organism (2) Hypotension due to hypovolemia: Assessment and Plan: BP improved with IV hydration. Cw/ same. Monitor blood pressure closely (3) Chronic hypoxic respiratory failure: Assessment and Plan: On 2 L oxygen at baseline. Monitor. (4) Chronic heart failure with preserved ejection fraction (HFpEF): Assessment and Plan: Hold torsemide. Gentle IV hydration for hypotension/hypovolemia (5) Diabetes: Assessment and Plan: Sliding scale insulin while inpatient. 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 Monitor closely. (7) Persistent atrial fibrillation: Assessment and Plan: Rate controlled. Continue with digoxin. (8) Hypertension: Assessment and Plan: Hold antihypertensives because of low blood pressure. Continue with IV hydration. Qualifiers: Hypertension type: primary hypertension Qualified Code(s): I10 - Essential (primary) hypertension (9) HLD (hyperlipidemia): Assessment and Plan: Continue with statin Qualifiers: Hyperlipidemia type: unspecified Qualified Code(s): E78.5 - Hyperlipidemia, unspecified
[2024-11-11 13:50] LABS: Bilirubin Urine NEGATIVE (NEGATIVE); Blood Urine NEGATIVE (NEGATIVE); Clarity Urine CLEAR (CLEAR); Color Urine LT. YELLOW (YELLOW); Glucose Urine UA 500 mg/dL (NEGATIVE); Ketones Urine NEGATIVE (NEGATIVE); Leukocyte Esterase Urine NEGATIVE (NEGATIVE); Nitrite Urine NEGATIVE (NEGATIVE); Protein Urine NEGATIVE (NEG/TRACE); Urobilinogen Urine 0.2 EU/dL (0.2-1.0); pH Urine 6.5 (5.0-9.0)
[2024-11-11 13:55] LABS: Urine Microscopic Indicated NO
[2024-11-11 14:24] LABS: Lactate/Lactic Acid 3.5 mmol/L (0.4-2.0)
--- NOTE | 2024-11-11 15:45 | SWNOTE1 ---
Medicare Outpatient Observation Notice reviewed and discussed with patient and pt's daughter. Pt and daughter verbalized understanding and pt had her daughter sign the form. Original given to patient and copy placed in patient?s chart.
--- NOTE | 2024-11-11 15:46 | SWNOTE1 ---
SW met with pt and daughter in room. Pt just worked with physical therapy and voiced that it went fine. Pt does wear home oxygen at [address] [facility]. Pt does have home health coming in, PT and skilled nurse. Pt also has children/family close by that stop and check on her daily. When DORINA reviewed the [employer] form, pt and daughter expressed they did pay out of pocket for rehab one time, daughter stated they learned the hard way. Pt voiced she does plan on returning home at discharge. SW to review therapy notes for further recommendations. Pt and daughter unsure of the [employer] company, but stated they used to have OT from [facility] coming in, so likely them. DORINA called [facility] and pt is current with them.
--- NOTE | 2024-11-11 15:51 | SWNOTE1 ---
SW called [facility] to check on liter flow of oxygen, no answer. SW to try again later today or tomorrow morning.
[2024-11-11] MEDS: IPRATROPIUM/ALBUTEROL SULFATE 3 ML AMPUL.NEB IH ×2 (16:30→22:07)
[2024-11-11] MEDS: LACTATED RINGER'S SOLUTION 1,000 ML 100 ML IV (16:55)
[2024-11-11 20:00] LABS: Glucometer 239 mg/dL (74-106)
[2024-11-11] MEDS: AMITRIPTYLINE HCL 25 MG TABLET PO (21:39)
[2024-11-11] MEDS: BUPROPION HCL 150 MG SR TABLET 12H PO (21:39)
[2024-11-11] MEDS: ATORVASTATIN CALCIUM 20 MG TABLET PO (21:39)
[2024-11-11] MEDS: HEPARIN SODIUM (PORCINE) 5,000 UNIT/ML VIAL 5000 UNIT SUBQ (21:39)
[2024-11-11] MEDS: ROPINIROLE HCL 0.25 MG TABLET PO (21:39)
[2024-11-11] MEDS: CARVEDILOL 12.5 MG TABLET PO (21:39)
[2024-11-11] MEDS: GABAPENTIN 100 MG CAPSULE PO (21:39)
[2024-11-11] MEDS: INSULIN ASPART 300 UNIT/3 ML PEN SUBQ (21:40)
[2024-11-11] MEDS: ALPRAZOLAM 0.25 MG TABLET PO (21:45)
[2024-11-12] VITALS (17 sets, daily range): BP systolic 106–130; BP diastolic 56–76; PULSE 61–128; TEMP 36.3–37; O2SAT 90–96
[2024-11-12] MEDS: LACTATED RINGER'S SOLUTION 1,000 ML 100 ML IV (03:17)
[2024-11-12] MEDS: IPRATROPIUM/ALBUTEROL SULFATE 3 ML AMPUL.NEB IH ×4 (04:17→22:12)
[2024-11-12] MEDS: PANTOPRAZOLE SODIUM 40 MG TABLET.DR PO (05:45)
[2024-11-12] MEDS: GABAPENTIN 100 MG CAPSULE PO ×3 (05:45→21:56)
[2024-11-12 06:12] LABS: Basophils Absolute Auto 0.1 10^3/uL (0.0-0.1); Basophils Percent Auto 0.6 % (0.2-2.0); Eosinophils Absolute Auto 0.2 10^3/uL (0.0-0.7); Eosinophils Percent Auto 1.8 % (0.9-7.0); Hematocrit 31.3 % (36.0-48.0); Hemoglobin 9.3 g/dL (12.0-16.0); Immature Granulocytes Abs Auto 0.05 10^3/uL (0.00-0.03); Immature Granulocytes Pct Auto 0.6 % (0.0-0.5); Lymphocytes Absolute Auto 0.8 10^3/uL (1.2-3.8); Lymphocytes Percent Auto 9.3 % (20.5-60.0); Mean Corpuscular HGB Conc 29.7 g/dL (29.9-35.2); Mean Corpuscular Hemoglobin 26.8 pg (26.7-34.0); Mean Corpuscular Volume 90.2 fL (81.0-99.0); Mean Platelet Volume 9.7 fL (9.5-13.5); Neutrophils Absolute Auto 6.9 10^3/uL (1.4-6.5); Neutrophils Percent Auto 76.7 % (43.0-75.0); Platelet Count 269 10^3/uL (150-450); Red Blood Count 3.47 10^6/uL (4.20-5.40); Red Cell Distribution Width 16.8 % (11.0-15.0)
[2024-11-12 06:27] LABS: Alanine Aminotransferase 10 U/L (14-59); Albumin Globulin Ratio 0.5; Albumin Level 2.7 g/dL (3.4-5.0); Alkaline Phosphatase 95 U/L (46-116); Anion Gap 8.2; Aspartate Amino Transferase 12 U/L (15-37); BUN Creatinine Ratio 24.6; Bilirubin Total 0.5 mg/dL (0.2-1.0); Calcium 9.3 mg/dL (8.5-10.1); Carbon Dioxide 30.8 mmol/L (21.0-32.0); Chloride 100 mmol/L (98-107); Estimated GFR (African America 35 (>=60 mL/min/1.73m^2); Estimated GFR (Non-African Ame 29 (>=60 mL/min/1.73m^2); Globulin 5.2 g/dL; Glucose 159 mg/dL (74-106); Sodium 135 mmol/L (136-145); Total Protein 7.9 g/dL (6.4-8.2)
[2024-11-12 07:39] LABS: Glucometer 159 mg/dL (74-106)
--- NOTE | 2024-11-12 09:20 | CM.NOTE ---
Rounds made with Dr. Patricia, discussed with pt findings on CT scan and possible lung mass. Pt states she has not had any further work up for lung mass, pt states she did not want any surgical intervention. Pt remains dyspneic with minimal activity. Dr. Patricia will consult Dr. Tan for further recommendations.
--- NOTE | 2024-11-12 09:20 | CM.NOTE ---
Dr. Patricia changing pt to inpatient status.
[2024-11-12] MEDS: INSULIN ASPART 300 UNIT/3 ML PEN SUBQ ×3 (09:21→22:08)
[2024-11-12] MEDS: ESCITALOPRAM 10 MG TABLET PO (09:22)
[2024-11-12] MEDS: CARVEDILOL 12.5 MG TABLET PO ×2 (09:22→21:56)
[2024-11-12] MEDS: DIGOXIN 125 MCG TABLET PO (09:23)
[2024-11-12] MEDS: BUPROPION HCL 150 MG SR TABLET 12H PO ×2 (09:23→21:56)
[2024-11-12] MEDS: HEPARIN SODIUM (PORCINE) 5,000 UNIT/ML VIAL 5000 UNIT SUBQ ×2 (09:23→21:56)
--- NOTE | 2024-11-12 11:03 | PM.IMPN1 ---
Progress Note: A&P Assessment and Plan (1) Right lower lobe pneumonia: Assessment and Plan: Suspected bacterial pneumonia associated with lung mass. On IV doxycycline. Follow-up sputum and blood cultures. Qualifiers: Pneumonia type: due to unspecified organism Qualified Code(s): J18.9 - Pneumonia, unspecified organism (2) Lung mass: Assessment and Plan: Bilateral lung mass, increased in size from prior. She had previously followed up with pulmonology as outpatient and refused to undergo further testing or treatment. Pulmonology consulted this admission and patient reiterated that she does not want any further testing or treatment for lung mass. (3) Atrial fibrillation with RVR: Assessment and Plan: Patient with history of persistent A-fib but now has poorly controlled rate. Continue with carvedilol and dig. Trial of IV Lopressor to help improve her heart rate. (4) Hypotension due to hypovolemia: Assessment and Plan: Blood pressure is still borderline low but improved from admission. Continue with home antihypertensives. Hold off IV fluids as high risk of fluid overload. (5) Chronic hypoxic respiratory failure: Assessment and Plan: On 2 days oxygen via nasal cannula. Oxygen requirement is at baseline but subjectively patient feels short of breath and is having a hard time catching her breath (6) Chronic heart failure with preserved ejection fraction (HFpEF): Assessment and Plan: Torsemide on hold. IV fluids discontinued this morning. Monitor volume status closely. (7) Diabetes: Assessment and Plan: Sliding scale insulin while inpatient. 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 Monitor urine output, serum creatinine closely. (9) Hypertension: Assessment and Plan: Okay to resume carvedilol. Hold torsemide. Qualifiers: Hypertension type: primary hypertension Qualified Code(s): I10 - Essential (primary) hypertension (10) HLD (hyperlipidemia): Assessment and Plan: Continue with Lipitor Qualifiers: Hyperlipidemia type: unspecified Qualified Code(s): E78.5 - Hyperlipidemia, unspecified Plan Initially admitted as observation for bacterial pneumonia. Patient is clinically worse and now has A-fib with RVR and feels worsening dyspnea with increased work of breathing noted at rest. Patient seen by pulmonology. Refusing to undergo treatment for lung mass. Continue with current course of treatment. Patient will be changed to inpatient as she has clinically worsened overnight and is anticipated to require continued inpatient monitoring/treatment over 2-3 midnights. Internal Medicine - PN: Subj Subjective Interval history: Seen and examined. Patient reports feeling worse than admission. She is more short of breath and visibly having a hard time catching her breath. Her heart rate is also poorly controlled. No overnight events. Exam Constitutional Vital Signs, click to edit/add: Last Vital Signs Temp 97.4 F L 11/12/24 06:53 Pulse 112 H 11/12/24 10:00 Resp 16 11/12/24 08:17 BP 106/56 11/12/24 08:17 Pulse Ox 91 L 11/12/24 08:17 O2 Del Method Nasal Cannula 11/12/24 08:17 O2 Flow Rate 2 11/12/24 08:17 Documenting provider has reviewed patient's vital signs: yes Common normals: no apparent distress and oriented x3 General appearance: cooperative, ill appearing and frail appearing Respiratory Common normals: normal respiratory effort Effort & inspection: tachypneic and respiratory distress Auscultation: rales on the right at the base Other: Conversational dyspnea noted, appears short of breath at rest. Cardio Common normals: S1 normal heart sound and S2 normal heart sound Rate: tachycardic Rhythm: abnormal rhythm Heart sounds: S1 normal and S2 normal GI Common normals: Normal to inspection, nondistended, normoactive bowel sounds present, soft to palpation, non-tender and no hepatosplenomegaly Palpation: soft and no hepatosplenomegaly Extremity Common normals: no clubbing, cyanosis or edema Neuro Common normals: oriented x3, moves all extremities and no focal motor deficits Psych Common normals: mental status grossly normal, denies hallucinations, denies homicidal ideation and denies suicidal ideation Internal Medicine - PN: Obj Da Labs Labs: Laboratory Results - last 24 hr 11/11/24 11/11/24 11/11/24 10:50 13:34 13:50 WBC 10.4 RBC 3.43 L Hgb 9.1 L Hct 30.4 L MCV 88.6 MCH 26.5 L MCHC 29.9 RDW 16.6 H Plt Count 275 MPV 9.6 Neut % (Auto) Lymph % (Auto) [place] % (Auto) Eos % (Auto) Baso % (Auto) Neut # (Auto) Lymph # (Auto) [place] # (Auto) Eos # (Auto) Baso # (Auto) Abs Immat Gran (auto) Seg Neuts % (Manual) 84.0 H Lymphocytes % (Manual) 9.0 L Monocytes % (Manual) 5.0 Eosinophils % (Manual) 0.0 L Basophils % (Manual) 2.0 Imm/Tot Granulo (auto) Neutrophils # (Manual) 8.73 H Lymphocytes # (Manual) 0.93 L Monocytes # (Manual) 0.52 Eosinophils # (Manual) 0.00 Basophils # (Manual) 0.20 H PT 11.4 INR 1.08 Sodium 134 L Potassium 3.9 Chloride 97 L Carbon Dioxide 32.7 H Anion Gap 8.2 BUN 47.0 H Creatinine 1.93 H Est GFR ( Amer) 30 L Est GFR (Non-Af Amer) 25 L BUN/Creatinine Ratio 24.4 Glucose 194 H Lactate 2.2 H* 3.5 H* Calcium 8.9 Total Bilirubin 0.5 AST 12 L ALT 7 L Alkaline Phosphatase 92 Troponin I High Sens 21.6 Total Protein 7.6 Albumin 2.5 L Globulin 5.1 Albumin/Globulin Ratio 0.5 Urine Color Lt. yellow Urine Clarity Clear Urine pH 6.5 Ur Specific [place] 1.010 Urine Protein Negative Urine Glucose (UA) 500 A Urine Ketones Negative Urine Occult Blood Negative Urine Nitrite Negative Urine Bilirubin Negative Urine Urobilinogen 0.2 Ur Leukocyte Esterase Negative Digoxin 1.2 POC Glucose 11/11/24 11/12/24 11/12/24 19:39 05:35 07:38 WBC 9.0 RBC 3.47 L Hgb 9.3 L Hct 31.3 L MCV 90.2 MCH 26.8 MCHC 29.7 L RDW 16.8 H Plt Count 269 MPV 9.7 Neut % (Auto) 76.7 H Lymph % (Auto) 9.3 L [place] % (Auto) 11.0 Eos % (Auto) 1.8 Baso % (Auto) 0.6 Neut # (Auto) 6.9 H Lymph # (Auto) 0.8 L [place] # (Auto) 1.0 H Eos # (Auto) 0.2 Baso # (Auto) 0.1 Abs Immat Gran (auto) 0.05 H Seg Neuts % (Manual) Lymphocytes % (Manual) Monocytes % (Manual) Eosinophils % (Manual) Basophils % (Manual) Imm/Tot Granulo (auto) 0.6 H Neutrophils # (Manual) Lymphocytes # (Manual) Monocytes # (Manual) Eosinophils # (Manual) Basophils # (Manual) PT INR Sodium 135 L Potassium 4.0 Chloride 100 Carbon Dioxide 30.8 Anion Gap 8.2 BUN 41.0 H Creatinine 1.67 H Est GFR ( Amer) 35 L Est GFR (Non-Af Amer) 29 L BUN/Creatinine Ratio 24.6 Glucose 159 H Lactate Calcium 9.3 Total Bilirubin 0.5 AST 12 L ALT 10 L Alkaline Phosphatase 95 Troponin I High Sens Total Protein 7.9 Albumin 2.7 L Globulin 5.2 Albumin/Globulin Ratio 0.5 Urine Color Urine Clarity Urine pH Ur Specific [place] Urine Protein Urine Glucose (UA) Urine Ketones Urine Occult Blood Urine Nitrite Urine Bilirubin Urine Urobilinogen Ur Leukocyte Esterase Digoxin POC Glucose 239 H 159 H
[2024-11-12 11:22] LABS: Glucometer 306 mg/dL (74-106)
[2024-11-12] MEDS: METOPROLOL TARTRATE 5 MG/5 ML VIAL IVP (11:23)
--- NOTE | 2024-11-12 11:44 | PM.PLCN ---
History of Present Illness History of Present Illness Consult date: 11/12/24 Requesting physician: Shaikh Harshad Reason for consult: lung mass Chief complaint: WEAKNESS, PNEUMONIA Narrative: 84yo female, known to me - I actually saw her in the office last week 11/05/2024. She has SOB @ baseline - PFT 10/08/2024 notes mild obstruction on spirometry with a very severe DLCO @ 29%. She tried Stiolto but voiced no benefit with use. She presented to [facility] ER with weakness and dyspnea. She was hypotensive on admission. CXR noted findings suggestive of pneumonia. A F/U chest CT noted LLL 5.3cm mass suspicious for malignancy and a smaller ~2cm RLL consolidation. This mass is known and was actually addressed at the F/U appointment 11/05/2024. This has been progressively increasing in size over the past several years: -08/14/2024: 5cm -04/25/2024: 5cm -10/06/2022: 2.2cm -09/04/2020: 1.6cm I had ordered a F/U CT chest with contrast d/t lymphadenopathy during a visit 09/24/2024. At that time, I explained that creatinine is ordered for patients over 6. She has history of CKD, so the creatinine would help determine if she would still be a candidate for IVP dye or not. The patient had refused the CT with contrast as she was concerned about her kidneys. I explained this again to the patient & her daughters present in the office. After further discussion, she stated she did not want any surgery or procedures, and we discussed she has poor performance status and would not likely tolerate chemo and/or radiation. At the appointment 11/05/2024, she decided that she did not want any further monitoring with CT chest. Review of Systems ROS Status of ROS 10 or more systems reviewed and unremarkable except as noted in history and below [facility] Medical History (Updated 11/12/24 @ 11:05 by Shaikh Harshad MD) CKD stage 3b, GFR 30-44 ml/min ?N18.32 - Chronic kidney disease, stage 3b (ICD-10) NSTEMI (non-ST elevated myocardial infarction) ?I21.4 - Non-ST elevation (NSTEMI) myocardial infarction (ICD-10) Acute on chronic renal failure ?N17.9 - Acute kidney failure, unspecified (ICD-10) ?N18.9 - Chronic kidney disease, unspecified (ICD-10) Gastroenteritis ?K52.9 - Noninfective gastroenteritis and colitis, unspecified (ICD-10) Dehydration ?E86.0 - Dehydration (ICD-10) Nausea, vomiting, and diarrhea ?R11.2 - Nausea with vomiting, unspecified (ICD-10) ?R19.7 - Diarrhea, unspecified (ICD-10) GERD without esophagitis ?K21.9 - Gastro-esophageal reflux disease without esophagitis (ICD-10) Depression ?F32.A - Depression, unspecified (ICD-10) Chronic hypoxic respiratory failure ?J96.11 - Chronic respiratory failure with hypoxia (ICD-10) Multiple rib fractures ?S22.49XA - Multiple fractures of ribs, unspecified side, initial encounter for closed fracture (ICD-10) Type 2 diabetes mellitus with hyperglycemia ?E11.65 - Type 2 diabetes mellitus with hyperglycemia (ICD-10) Aortic stenosis, moderate ?I35.0 - Nonrheumatic aortic (valve) stenosis (ICD-10) Persistent atrial fibrillation ?I48.19 - Other persistent atrial fibrillation (ICD-10) Chronic heart failure with preserved ejection fraction (HFpEF) ?I50.32 - Chronic diastolic (congestive) heart failure (ICD-10) Hypertension ?I10 - Essential (primary) hypertension (ICD-10) HLD (hyperlipidemia) ?E78.5 - Hyperlipidemia, unspecified (ICD-10) CKD (chronic kidney disease) stage 3, GFR 30-59 ml/min ?N18.30 - Chronic kidney disease, stage 3 unspecified (ICD-10) Hypothyroid ?E03.9 - Hypothyroidism, unspecified (ICD-10) Acute thoracic back pain ?M54.6 - Pain in thoracic spine (ICD-10) Closed compression fracture of L1 vertebra ?S32.010A - Wedge compression fracture of first lumbar vertebra, initial encounter for closed fracture (ICD-10) Compression fracture of L1 lumbar vertebra ?S32.010A - Wedge compression fracture of first lumbar vertebra, initial encounter for closed fracture (ICD-10) Acute pain of left foot ?M79.672 - Pain in left foot (ICD-10) 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 ?F32.89 - Other specified depressive episodes (ICD-10) Anxiety ?F41.9 - Anxiety disorder, unspecified (ICD-10) Diabetes ?E11.9 - Type 2 diabetes mellitus without complications (ICD-10) Atrial fibrillation ?I48.91 - Unspecified atrial fibrillation (ICD-10) Surgical History Status post aortic valve repair ?Z98.890 - Other specified postprocedural states (ICD-10) S/P ablation of atrial fibrillation ?Z98.890 - Other specified postprocedural states (ICD-10) ?Z86.79 - Personal history of other diseases of the circulatory system (ICD-10) History of carpal tunnel surgery of right wrist ?Z98.890 - Other specified postprocedural states (ICD-10) H/O: hysterectomy ?Z90.710 - Acquired absence of both cervix and uterus (ICD-10) Aortic valve replaced ?Z95.2 - Presence of prosthetic heart valve (ICD-10) History of cholecystectomy ?Z90.49 - Acquired absence of other specified parts of digestive tract (ICD-10) Family History Mother Family history of CHF (congestive heart failure) Father Family history of diabetes mellitus Sister Family history of diabetes mellitus Son Family history of myocardial infarction Social History Within the past year, how often did you have a drink containing alcohol: monthly or less Within the past year, how many standard drinks containing alcohol did you have on a typical day: 1 or 2 Within the past year, how often did you have six or more drinks on one occasion: never Total score: 0 Score interpretation: A score less than 3 is consistent with normal alcohol consumption. Smoking status: Former smoker Non-prescribed substance use: denies use Previous occupational history: retired Highest level of school completed/degree received: high school graduate Are you now , , , , never or living with a partner: In a typical week, how many times do you talk on the telephone with family, friends, or neighbors: 3 or more times per week How often do you get together with friends or relatives: 3 or more times per week How often do you attend gnosticist or judaism services: 4 or more times per year Do you belong to any clubs or organizations such as gnosticist groups unions, fraternal or athletic groups, or school groups: no Total score: 2 Score interpretation: A score of greater than or equal to 2 indicates the lowest level of social isolation. Little interest or pleasure in doing things: not at all Feeling down, depressed, or hopeless: not at all Feel stressed/tense/nervous/anxious/difficulty sleeping: not at all Gender Identity: female Meds Home Medications and Allergies Home Medications ?Medication ?Instructions ?Recorded ?Confirmed ?Type alprazolam 0.25 mg tablet 0.25 mg PO .QHS PRN anxiety 11/17/23 11/11/24 History atorvastatin 20 mg tablet 20 mg PO QPM 11/17/23 11/11/24 History bupropion HCl 150 mg tablet,12 hr 150 mg PO BID 11/17/23 11/11/24 History sustained-release digoxin 125 mcg (0.125 mg) tablet 0.125 mg PO .QD 11/17/23 08/15/24 History escitalopram oxalate 10 mg tablet 10 mg PO DAILY 11/17/23 11/11/24 History gabapentin 100 mg capsule 100 mg PO TID 11/17/23 11/11/24 History insulin lispro protamine-lispro 10 unit subcut BID 11/17/23 11/11/24 History 100 unit/mL (75-25) subcutaneous pen omeprazole 40 mg capsule,delayed 40 mg PO DAILY 11/17/23 11/11/24 History release ropinirole 0.25 mg tablet 0.25 mg PO QPM 11/17/23 11/11/24 History torsemide 20 mg tablet 60 mg PO DAILY 11/17/23 11/11/24 History carvedilol 12.5 mg tablet (Coreg) 12.5 mg PO BID 08/15/24 11/11/24 History amitriptyline 25 mg tablet 25 mg PO .QHS 11/11/24 11/11/24 History budesonide 160 mcg-glycopyr 9 2 inh inhalation DAILY 11/11/24 11/11/24 History mcg-formot 4.8 mcg/actuation HFA inhaler (Breztri Aerosphere) Allergies Allergy/AdvReac Type Severity Reaction Status Date / Time codeine Allergy Intermediate Unknown Verified 08/14/24 21:41 Penicillins Allergy Intermediate Unknown Verified 08/14/24 21:41 Exam Narrative Exam Narrative: -Constitutional: Siting in chair, in no acute distress -ENT: Wearing nasal cannula -Lungs: Diminished. No wheezes. Crackles in lower lung sher - relatively unchanged from exam outpatient 11/05/2024 -CV: Irregularly irregular -Abdomen: Soft -Extremities: No edema -Musculoskeletal: No abnormalities noted -Neuro: No fasciculations -Psycho: Alert Constitutional Vital Signs, click to edit/add: Last Vital Signs Temp 97.4 F L 11/12/24 06:53 Pulse 112 H 11/12/24 10:00 Resp 16 11/12/24 08:17 BP 106/56 11/12/24 08:17 Pulse Ox 92 L 11/12/24 11:39 O2 Del Method Nasal Cannula 11/12/24 11:39 O2 Flow Rate 2 11/12/24 11:39 Results Laboratory Findings ABG, PT/INR, D-dimer: PT/INR, D-dimer PT 11.4 sec (9.0-11.6) 11/11/24 10:50 INR 1.08 11/11/24 10:50 Abnormal lab findings: Abnormal Labs 11/11/24 11/11/24 11/11/24 10:50 13:34 13:50 RBC 3.43 L Hgb 9.1 L Hct 30.4 L MCH 26.5 L MCHC RDW 16.6 H Neut % (Auto) Lymph % (Auto) Neut # (Auto) Lymph # (Auto) [place] # (Auto) Abs Immat Gran (auto) Seg Neuts % (Manual) 84.0 H Lymphocytes % (Manual) 9.0 L Eosinophils % (Manual) 0.0 L Imm/Tot Granulo (auto) Neutrophils # (Manual) 8.73 H Lymphocytes # (Manual) 0.93 L Basophils # (Manual) 0.20 H Sodium 134 L Chloride 97 L Carbon Dioxide 32.7 H BUN 47.0 H Creatinine 1.93 H Est GFR ( Amer) 30 L Est GFR (Non-Af Amer) 25 L Glucose 194 H Lactate 2.2 H* 3.5 H* AST 12 L ALT 7 L Albumin 2.5 L Urine Glucose (UA) 500 A POC Glucose 11/11/24 11/12/24 11/12/24 19:39 05:35 07:38 RBC 3.47 L Hgb 9.3 L Hct 31.3 L MCH MCHC 29.7 L RDW 16.8 H Neut % (Auto) 76.7 H Lymph % (Auto) 9.3 L Neut # (Auto) 6.9 H Lymph # (Auto) 0.8 L [place] # (Auto) 1.0 H Abs Immat Gran (auto) 0.05 H Seg Neuts % (Manual) Lymphocytes % (Manual) Eosinophils % (Manual) Imm/Tot Granulo (auto) 0.6 H Neutrophils # (Manual) Lymphocytes # (Manual) Basophils # (Manual) Sodium 135 L Chloride Carbon Dioxide BUN 41.0 H Creatinine 1.67 H Est GFR ( Amer) 35 L Est GFR (Non-Af Amer) 29 L Glucose 159 H Lactate AST 12 L ALT 10 L Albumin 2.7 L Urine Glucose (UA) POC Glucose 239 H 159 H 11/12/24 11:20 RBC Hgb Hct MCH MCHC RDW Neut % (Auto) Lymph % (Auto) Neut # (Auto) Lymph # (Auto) [place] # (Auto) Abs Immat Gran (auto) Seg Neuts % (Manual) Lymphocytes % (Manual) Eosinophils % (Manual) Imm/Tot Granulo (auto) Neutrophils # (Manual) Lymphocytes # (Manual) Basophils # (Manual) Sodium Chloride Carbon Dioxide BUN Creatinine Est GFR ( Amer) Est GFR (Non-Af Amer) Glucose Lactate AST ALT Albumin Urine Glucose (UA) POC Glucose 306 H Assessment and Plan Assessment and Plan (1) Lung mass: Assessment and Plan: 1. Left lower lobe lung mass. I personally reviewed CT chest imaging. This has been slowly increasing in size. Now 5.3cm on CT chest, previously 5cm 08/14/2024. At her outpatient appointment 11/05/2024, she had stated in the presence of her daughters that she did NOT want any further monitoring or w/up or treatment of this mass. I reviewed with her that it has increased slowly in size compared to last imaging and this is malignancy until proven otherwise. I addressed with the patient once again what she wants to do and reviewed options including biopsy, and that if it is cancer, treatment with chemo and/or radiation. She stated that she does NOT want anything done further at this point, including biopsies and treatment. I asked her again to confirm this decision, and she answered in the affirmative. She stated to me I just want to be comfortable. I have nothing else to recommend regarding this mass. 2. Pneumonia. I cannot definitively state she has or has no pneumonia. As she presented with hypotension, I would treat her as such. May continue current antibiotic therapy. 3. Centrilobular emphysema. Mild obstruction, did not respond to Stiolto. Acute dyspnea may be due more to any pneumonia +/- afib with RVR. 4. Chronic hypoxic respiratory failure. She is on O2 @ baseline. 5. 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 Treatment is treating/manaing the underlying cardiac issues. 6. Atrial fibrillation with RVR. Being treated by hospitalist service at this time. Plan At her appointment on 11/05/2024, the plan was to F/U with me PRN. As she does not wish to have any further monitoring or treatment of the LLL mass, I do not see a need to F/U with me unless the patient wants to.
[2024-11-12] MEDS: OXYCODONE HCL 5 MG TABLET PO ×2 (12:03→21:56)
--- NOTE | 2024-11-12 13:10 | SWNOTE1 ---
SW spoke to case management and reviewed OT note of recommendation of SNF as pt had a change in her medical condition. Pt has been changed to inpt status. SW stopped in and spoke with pt about this. She stated as long as insurance pays for it as she was in OBS last time and they did not cover. SW advised pt that she has been changed to INPT status as of today. Pt would like to speak with SW about this when her daughter arrives. SW to check back later.
[2024-11-12 16:20] LABS: Glucometer 63 mg/dL (74-106)
[2024-11-12] MEDS: COLCHICINE 0.6 MG TABLET PO (17:51)
[2024-11-12] MEDS: AMITRIPTYLINE HCL 25 MG TABLET PO (21:56)
[2024-11-12] MEDS: ATORVASTATIN CALCIUM 20 MG TABLET PO (21:56)
[2024-11-12] MEDS: ROPINIROLE HCL 0.25 MG TABLET PO (21:56)
[2024-11-12] MEDS: ALPRAZOLAM 0.25 MG TABLET PO (21:56)
[2024-11-12 22:09] LABS: Glucometer 301 mg/dL (74-106)
[2024-11-13] VITALS (25 sets, daily range): BP systolic 118–144; BP diastolic 59–72; PULSE 60–131; TEMP 36.3–36.7; O2SAT 90–97
[2024-11-13] MEDS: IPRATROPIUM/ALBUTEROL SULFATE 3 ML AMPUL.NEB IH ×4 (04:37→22:41)
[2024-11-13 05:38] LABS: Basophils Absolute Auto 0.1 10^3/uL (0.0-0.1); Basophils Percent Auto 0.6 % (0.2-2.0); Eosinophils Absolute Auto 0.2 10^3/uL (0.0-0.7); Eosinophils Percent Auto 2.2 % (0.9-7.0); Hematocrit 27.2 % (36.0-48.0); Hemoglobin 8.1 g/dL (12.0-16.0); Immature Granulocytes Abs Auto 0.06 10^3/uL (0.00-0.03); Immature Granulocytes Pct Auto 0.7 % (0.0-0.5); Lymphocytes Absolute Auto 0.8 10^3/uL (1.2-3.8); Lymphocytes Percent Auto 10.1 % (20.5-60.0); Mean Corpuscular HGB Conc 29.8 g/dL (29.9-35.2); Mean Corpuscular Volume 90.7 fL (81.0-99.0); Mean Platelet Volume 9.5 fL (9.5-13.5); Monocytes Absolute Auto 0.9 10^3/uL (0.3-0.8); Monocytes Percent Auto 10.7 % (1.7-12.0); Neutrophils Absolute Auto 6.1 10^3/uL (1.4-6.5); Neutrophils Percent Auto 75.7 % (43.0-75.0); Platelet Count 242 10^3/uL (150-450)
[2024-11-13] MEDS: PANTOPRAZOLE SODIUM 40 MG TABLET.DR PO (05:53)
[2024-11-13] MEDS: GABAPENTIN 100 MG CAPSULE PO ×3 (05:53→20:56)
[2024-11-13 06:05] LABS: Alanine Aminotransferase 10 U/L (14-59); Albumin Globulin Ratio 0.5; Albumin Level 2.5 g/dL (3.4-5.0); Alkaline Phosphatase 89 U/L (46-116); Aspartate Amino Transferase 13 U/L (15-37); BUN Creatinine Ratio 24.6; Bilirubin Total 0.4 mg/dL (0.2-1.0); Calcium 8.9 mg/dL (8.5-10.1); Carbon Dioxide 30.7 mmol/L (21.0-32.0); Chloride 99 mmol/L (98-107); Estimated GFR (African America 44 (>=60 mL/min/1.73m^2); Estimated GFR (Non-African Ame 36 (>=60 mL/min/1.73m^2); Globulin 4.7 g/dL; Glucose 115 mg/dL (74-106); Potassium 3.7 mmol/L (3.5-5.1); Sodium 136 mmol/L (136-145); Total Protein 7.2 g/dL (6.4-8.2)
[2024-11-13 08:34] LABS: Glucometer 136 mg/dL (74-106)
[2024-11-13] MEDS: DIGOXIN 125 MCG TABLET PO (09:40)
[2024-11-13] MEDS: HEPARIN SODIUM (PORCINE) 5,000 UNIT/ML VIAL 5000 UNIT SUBQ ×2 (09:40→20:56)
[2024-11-13] MEDS: CARVEDILOL 12.5 MG TABLET PO ×2 (09:41→20:56)
[2024-11-13] MEDS: BUPROPION HCL 150 MG SR TABLET 12H PO ×2 (09:41→20:56)
[2024-11-13] MEDS: ESCITALOPRAM 10 MG TABLET PO (09:41)
--- NOTE | 2024-11-13 09:57 | CM.NOTE ---
Rounds made with Dr. Patricia, no discharge today. Pt continues with c/o SOB. Pt will discharge to [facility] for skilled therapy when medically stable.
--- NOTE | 2024-11-13 10:11 | PM.IMPN1 ---
Progress Note: A&P Assessment and Plan (1) Lung mass: Assessment and Plan: Bilateral lung mass, increased in size from prior. Patient not interested in pursuing further testing or treatment. (2) Right lower lobe pneumonia: Assessment and Plan: Suspected bacterial pneumonia associated with lung mass. On IV doxycycline. Follow-up sputum and blood cultures. Qualifiers: Pneumonia type: due to unspecified organism Qualified Code(s): J18.9 - Pneumonia, unspecified organism (3) Atrial fibrillation with RVR: Assessment and Plan: Patient with history of persistent A-fib but now has poorly controlled rate. Continue with carvedilol and dig. Heart rate overall improved but is still elevated. (4) Hypotension due to hypovolemia: Assessment and Plan: Improved overall. Continue with home antihypertensives. (5) Chronic hypoxic respiratory failure: Assessment and Plan: On 2 days oxygen via nasal cannula. Oxygen requirement is at baseline but subjectively patient feels short of breath and is having a hard time catching her breath (6) Chronic heart failure with preserved ejection fraction (HFpEF): Assessment and Plan: Resume torsemide at lower dose as patient presented with dehydration. She is on 60 mg torsemide at home. Started her on 20 mg for now. (7) Diabetes: Assessment and Plan: Sliding scale insulin while inpatient. Qualifiers: Diabetes mellitus type: type 2 Diabetes mellitus long wall mining machine tender insulin use: with long wall mining machine tender use Diabetes mellitus complication status: with kidney complications Diabetes mellitus complication detail: with chronic kidney disease Chronic kidney disease stage: stage 3 (moderate) Chronic kidney disease stage 3 subtype: stage 3b (GFR 30-44) Qualified Code(s): E11.22 - Type 2 diabetes mellitus with diabetic chronic kidney disease; N18.32 - Chronic kidney disease, stage 3b; Z79.4 - alf (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 of insulin (8) CKD stage 3b, GFR 30-44 ml/min: Assessment and Plan: Renal function more or less at baseline. Monitor urine output, serum creatinine closely. (9) Hypertension: Assessment and Plan: Okay to resume carvedilol. Resumed torsemide Qualifiers: Hypertension type: primary hypertension Qualified Code(s): I10 - Essential (primary) hypertension (10) HLD (hyperlipidemia): Assessment and Plan: Continue with Lipitor Qualifiers: Hyperlipidemia type: unspecified Qualified Code(s): E78.5 - Hyperlipidemia, unspecified Plan Doing well overall and feels better but is still short of breath with poorly controlled heart rate. Continue with current course of treatment. PT/OT evaluation. Will need rehab once medically stable for discharge Internal Medicine - PN: Subj Subjective Interval history: Seen and examined. No overnight events. Feeling well overall. Heart rate is still poorly controlled but overall improved from before. Exam Constitutional Vital Signs, click to edit/add: Last Vital Signs Temp 98.0 F 11/13/24 08:30 Pulse 93 H 11/13/24 09:52 Resp 20 11/13/24 08:30 BP 124/72 11/13/24 09:41 Pulse Ox 92 L 11/13/24 08:30 O2 Del Method Nasal Cannula 11/13/24 08:30 O2 Flow Rate 3 11/13/24 08:30 Documenting provider has reviewed patient's vital signs: yes Common normals: no apparent distress and oriented x3 General appearance: cooperative, ill appearing and frail appearing Respiratory Common normals: normal respiratory effort Auscultation: rales on the right at the base Other: Conversational dyspnea noted. Cardio Common normals: S1 normal heart sound and S2 normal heart sound Rate: tachycardic Rhythm: abnormal rhythm Heart sounds: S1 normal and S2 normal Extremity Common normals: no clubbing, cyanosis or edema Neuro Common normals: oriented x3, moves all extremities and no focal motor deficits Psych Common normals: mental status grossly normal, denies hallucinations, denies homicidal ideation and denies suicidal ideation Internal Medicine - PN: Obj Da Labs Labs: Laboratory Results - last 24 hr 11/12/24 11/12/24 11/12/24 11:20 16:17 22:08 WBC RBC Hgb Hct MCV MCH MCHC RDW Plt Count MPV Neut % (Auto) Lymph % (Auto) [place] % (Auto) Eos % (Auto) Baso % (Auto) Neut # (Auto) Lymph # (Auto) [place] # (Auto) Eos # (Auto) Baso # (Auto) Abs Immat Gran (auto) Imm/Tot Granulo (auto) Sodium Potassium Chloride Carbon Dioxide Anion Gap BUN Creatinine Est GFR ( Amer) Est GFR (Non-Af Amer) BUN/Creatinine Ratio Glucose Calcium Total Bilirubin AST ALT Alkaline Phosphatase Total Protein Albumin Globulin Albumin/Globulin Ratio POC Glucose 306 H 63 L 301 H 11/13/24 11/13/24 05:11 08:32 WBC 8.0 RBC 3.00 L Hgb 8.1 L Hct 27.2 L MCV 90.7 MCH 27.0 MCHC 29.8 L RDW 17.0 H Plt Count 242 MPV 9.5 Neut % (Auto) 75.7 H Lymph % (Auto) 10.1 L [place] % (Auto) 10.7 Eos % (Auto) 2.2 Baso % (Auto) 0.6 Neut # (Auto) 6.1 Lymph # (Auto) 0.8 L [place] # (Auto) 0.9 H Eos # (Auto) 0.2 Baso # (Auto) 0.1 Abs Immat Gran (auto) 0.06 H Imm/Tot Granulo (auto) 0.7 H Sodium 136 Potassium 3.7 Chloride 99 Carbon Dioxide 30.7 Anion Gap 10.0 BUN 34.0 H Creatinine 1.38 H Est GFR ( Amer) 44 L Est GFR (Non-Af Amer) 36 L BUN/Creatinine Ratio 24.6 Glucose 115 H Calcium 8.9 Total Bilirubin 0.4 AST 13 L ALT 10 L Alkaline Phosphatase 89 Total Protein 7.2 Albumin 2.5 L Globulin 4.7 Albumin/Globulin Ratio 0.5 POC Glucose 136 H
--- NOTE | 2024-11-13 11:14 | CM.NOTE ---
Important Message From Medicare discussed with pt, pt verbalizes understanding and signs paper. Original given to pt and copy placed in pt's chart.
--- NOTE | 2024-11-13 11:35 | PT.DAILY ---
Physical Therapy Daily Note PT Daily Note/Assess Start: 11/12/24 13:51 Freq: Status: Active Protocol: Document 11/13/24 11:20 NEL (Rec: 11/13/24 11:35 NEL [id number]) Physical Therapy Daily Note/Assessment Time In/Time Out Time In 11:18 Time Out 11:27 Subjective Subjective Patient reports she is very tired today but agreeable to therapy. Therapeutic Activity Time Therapeutic Activity 9 Minutes (minutes) Therapeutic Activity 1 Units Therapeutic Activity Treatment Bed Mobility Ability Independent Chair Transfer Standby Assistance Ability Therapeutic Activity Patient completes supine to sit transfer independently Comments then sit to stand SBA. Patient ambulates 20 feet with RW CGA and assistance for O2 line required. Patient feels like heart is racing post ambulation but does not feel SOB. Total Physical Therapy Time Total Therapy 9 Minutes Total Physical 1 Therapy Units Summary Daily Note Summary Patient demonstrates ability to ambulate 20 feet with RW SBA, feels like heart is racing post ambulation but denies SOB. HR monitored at 105-117 bpm post ambulation . Attempted seated exercises but after ambulation and rest break patient still feels heart is racing so did not complete today. Patient in chair with call light in reach and all needs met post treatment. Family is present. Recommend SNF at [place] to improve endurance and overall strength in order to return to PLOF.
[2024-11-13] MEDS: TORSEMIDE 20 MG TABLET PO (11:42)
[2024-11-13 11:43] LABS: Glucometer 261 mg/dL (74-106)
[2024-11-13] MEDS: INSULIN ASPART 300 UNIT/3 ML PEN SUBQ ×2 (11:43→20:59)
[2024-11-13] MEDS: LEVOFLOXACIN IN DEXTROSE 5 % 500 MG/100 ML PREMIX 100 MG IV (13:36)
--- NOTE | 2024-11-13 14:42 | OT.DAILY ---
Occupational Therapy Daily Note OT Inpatient Daily Visit Note Start: 11/12/24 10:13 Freq: Status: Active Protocol: Document 11/13/24 14:35 [id number] (Rec: 11/13/24 14:42 [id number]) OT Visit Details Time In/Time Out Time In 14:13 Time Out 14:35 OT Treatment Plan Subjective Subjective Pt reports shortness of breath with any exertion or physical activity. Pt agreeable to participate in self- care tasks at this time. AAOx4. Objective Objective Completed [id number] on EOB to complete self care tasks. With set up of supplies Pt completed hair hygiene and management appropriately. Washed face and UB with SBA while seated on EOB. Completed [id number] to attempt walking to bathroom with walker. CGA for LOB, good standing balance and tolerance. Able to walk to bathroom and return of bed with CGA, followed by IV Line. Demonstrates shortness of breath and audible wheezing when returning to bed. Reports fatigue, feeling slightly dizzy. [id number] Min A for generalized weakness and fatigue. Assessment Assessment Pt agreeable and cooperative. She is eager to return to [facility]. Able to speak in full sentences with a normal thought process. Left in bed, call light within reach. Continue OT POC. OT Clay Artist Timed Codes Self-Group Home 17 Management minutes ( minutes) Self-[facility] Home 1 Management units
--- NOTE | 2024-11-13 15:12 | SWNOTE1 ---
[facility] is able to accept once pt is medically stable for discharge. DORINA faxed over updated physician notes, therapy notes, labs, vitals, nursing notes, and med list to [facility] at [facility].
--- NOTE | 2024-11-13 15:14 | SWNOTE1 ---
SW did stop in and speak to pt and daughter in room. SW made them aware that [facility] is able to accept. Pt voiced she is feeling alright. She voiced she did get short of breath when working with therapy. Pt still in agreement to go skilled.
[2024-11-13 16:39] LABS: Glucometer 130 mg/dL (74-106)
[2024-11-13 20:14] LABS: Glucometer 252 mg/dL (74-106)
[2024-11-13] MEDS: ROPINIROLE HCL 0.25 MG TABLET PO (20:56)
[2024-11-13] MEDS: ALPRAZOLAM 0.25 MG TABLET PO (20:56)
[2024-11-13] MEDS: ATORVASTATIN CALCIUM 20 MG TABLET PO (20:56)
[2024-11-13] MEDS: AMITRIPTYLINE HCL 25 MG TABLET PO (20:56)
[2024-11-14] VITALS (19 sets, daily range): BP systolic 100–151; BP diastolic 58–84; PULSE 61–105; TEMP 36.4–36.7; O2SAT 2–97
[2024-11-14] MEDS: IPRATROPIUM/ALBUTEROL SULFATE 3 ML AMPUL.NEB IH ×4 (04:50→22:08)
[2024-11-14] MEDS: GABAPENTIN 100 MG CAPSULE PO ×3 (05:21→21:25)
[2024-11-14] MEDS: PANTOPRAZOLE SODIUM 40 MG TABLET.DR PO (05:21)
[2024-11-14 05:55] LABS: Basophils Percent Auto 0.5 % (0.2-2.0); Eosinophils Absolute Auto 0.3 10^3/uL (0.0-0.7); Eosinophils Percent Auto 2.9 % (0.9-7.0); Hematocrit 29.6 % (36.0-48.0); Hemoglobin 8.7 g/dL (12.0-16.0); Immature Granulocytes Abs Auto 0.06 10^3/uL (0.00-0.03); Immature Granulocytes Pct Auto 0.7 % (0.0-0.5); Lymphocytes Absolute Auto 0.6 10^3/uL (1.2-3.8); Lymphocytes Percent Auto 6.9 % (20.5-60.0); Mean Corpuscular HGB Conc 29.4 g/dL (29.9-35.2); Mean Corpuscular Hemoglobin 26.9 pg (26.7-34.0); Mean Corpuscular Volume 91.4 fL (81.0-99.0); Mean Platelet Volume 9.8 fL (9.5-13.5); Monocytes Percent Auto 11.1 % (1.7-12.0); Neutrophils Absolute Auto 6.8 10^3/uL (1.4-6.5); Neutrophils Percent Auto 77.9 % (43.0-75.0); Platelet Count 250 10^3/uL (150-450); Red Blood Count 3.24 10^6/uL (4.20-5.40); Red Cell Distribution Width 17.2 % (11.0-15.0); White Blood Count 8.7 10^3/uL (4.0-11.0)
[2024-11-14 06:14] LABS: Alanine Aminotransferase 9 U/L (14-59); Albumin Globulin Ratio 0.5; Albumin Level 2.6 g/dL (3.4-5.0); Alkaline Phosphatase 92 U/L (46-116); Anion Gap 12.2; Aspartate Amino Transferase 14 U/L (15-37); BUN Creatinine Ratio 26.5; Bilirubin Total 0.5 mg/dL (0.2-1.0); Calcium 9.1 mg/dL (8.5-10.1); Carbon Dioxide 28.2 mmol/L (21.0-32.0); Chloride 98 mmol/L (98-107); Estimated GFR (African America 40 (>=60 mL/min/1.73m^2); Estimated GFR (Non-African Ame 33 (>=60 mL/min/1.73m^2); Glucose 152 mg/dL (74-106); Potassium 4.4 mmol/L (3.5-5.1); Sodium 134 mmol/L (136-145); Total Protein 7.6 g/dL (6.4-8.2)
[2024-11-14 08:24] LABS: Glucometer 130 mg/dL (74-106)
--- NOTE | 2024-11-14 09:31 | CM.NOTE ---
Rounds made with Dr. Patricia. Dr. Patricia reviews plan of care. No plan for discharge today. Continue with current treatment plan.
[2024-11-14] MEDS: HEPARIN SODIUM (PORCINE) 5,000 UNIT/ML VIAL 5000 UNIT SUBQ ×2 (10:08→21:25)
[2024-11-14] MEDS: CARVEDILOL 12.5 MG TABLET PO ×2 (10:08→21:25)
[2024-11-14] MEDS: ESCITALOPRAM 10 MG TABLET PO (10:08)
[2024-11-14] MEDS: BUPROPION HCL 150 MG SR TABLET 12H PO ×2 (10:08→21:25)
[2024-11-14] MEDS: TORSEMIDE 20 MG TABLET PO (10:08)
[2024-11-14] MEDS: DIGOXIN 125 MCG TABLET PO (10:09)
--- NOTE | 2024-11-14 10:48 | PM.IMPN1 ---
Progress Note: A&P Assessment and Plan (1) Lung mass: Assessment and Plan: Bilateral lung mass, increased in size from prior. Patient not interested in pursuing further testing or treatment. (2) Right lower lobe pneumonia: Assessment and Plan: Suspected bacterial pneumonia associated with lung mass. Cultures negative so far. Switch from IV to oral Doxy Qualifiers: Pneumonia type: due to unspecified organism Qualified Code(s): J18.9 - Pneumonia, unspecified organism (3) Atrial fibrillation with RVR: Assessment and Plan: Patient with history of persistent A-fib but now has poorly controlled rate. Continue with carvedilol and dig. Heart rate overall improved (4) Hypotension due to hypovolemia: Assessment and Plan: Hypotension resolved. Continue with home antihypertensives. (5) Chronic hypoxic respiratory failure: Assessment and Plan: On 2 days oxygen via nasal cannula. Oxygen requirement is at baseline (6) Chronic heart failure with preserved ejection fraction (HFpEF): Assessment and Plan: On torsemide 20 mg currently. Patient uses 60 mg torsemide at home. She will likely need to be discharged on a lower dose of torsemide (7) Diabetes: Assessment and Plan: Sliding scale insulin while inpatient. Qualifiers: Diabetes mellitus type: type 2 Diabetes mellitus intermediate accountant insulin use: with fdc use Diabetes mellitus complication status: with kidney complications Diabetes mellitus complication detail: with chronic kidney disease Chronic kidney disease stage: stage 3 (moderate) Chronic kidney disease stage 3 subtype: stage 3b (GFR 30-44) Qualified Code(s): E11.22 - Type 2 diabetes mellitus with diabetic chronic kidney disease; N18.32 - Chronic kidney disease, stage 3b; Z79.4 - intermediate accountant (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 of insulin (8) CKD stage 3b, GFR 30-44 ml/min: Assessment and Plan: Renal function more or less at baseline. Monitor urine output, serum creatinine closely. (9) Hypertension: Assessment and Plan: Blood pressure stable. Continue carvedilol, torsemide. Qualifiers: Hypertension type: primary hypertension Qualified Code(s): I10 - Essential (primary) hypertension (10) HLD (hyperlipidemia): Assessment and Plan: Continue with Lipitor Qualifiers: Hyperlipidemia type: unspecified Qualified Code(s): E78.5 - Hyperlipidemia, unspecified Internal Medicine - PN: Subj Subjective Interval history: Seen and examined. No overnight events. Feeling well overall. Heart rate reasonably well-controlled. Exam Constitutional Vital Signs, click to edit/add: Last Vital Signs Temp 98.0 F 11/14/24 07:38 Pulse 105 H 11/14/24 09:50 Resp 18 11/14/24 07:38 BP 148/84 H 11/14/24 07:38 Pulse Ox 92 L 11/14/24 07:38 O2 Del Method Nasal Cannula 11/14/24 07:38 O2 Flow Rate 3 11/14/24 07:38 Documenting provider has reviewed patient's vital signs: yes Common normals: no apparent distress and oriented x3 General appearance: cooperative, ill appearing and frail appearing Respiratory Common normals: normal respiratory effort Auscultation: rales on the right at the base Cardio Common normals: S1 normal heart sound and S2 normal heart sound Rate: tachycardic Rhythm: abnormal rhythm Heart sounds: S1 normal and S2 normal Extremity Common normals: no clubbing, cyanosis or edema Neuro Common normals: oriented x3, moves all extremities and no focal motor deficits Psych Common normals: mental status grossly normal, denies hallucinations, denies homicidal ideation and denies suicidal ideation Internal Medicine - PN: Obj Da Labs Labs: Laboratory Results - last 24 hr 11/13/24 11/13/24 11/13/24 11:41 16:28 20:12 WBC RBC Hgb Hct MCV MCH MCHC RDW Plt Count MPV Neut % (Auto) Lymph % (Auto) [place] % (Auto) Eos % (Auto) Baso % (Auto) Neut # (Auto) Lymph # (Auto) [place] # (Auto) Eos # (Auto) Baso # (Auto) Abs Immat Gran (auto) Imm/Tot Granulo (auto) Sodium Potassium Chloride Carbon Dioxide Anion Gap BUN Creatinine Est GFR ( Amer) Est GFR (Non-Af Amer) BUN/Creatinine Ratio Glucose Calcium Total Bilirubin AST ALT Alkaline Phosphatase Total Protein Albumin Globulin Albumin/Globulin Ratio POC Glucose 261 H 130 H 252 H 11/14/24 11/14/24 05:45 08:13 WBC 8.7 RBC 3.24 L Hgb 8.7 L Hct 29.6 L MCV 91.4 MCH 26.9 MCHC 29.4 L RDW 17.2 H Plt Count 250 MPV 9.8 Neut % (Auto) 77.9 H Lymph % (Auto) 6.9 L [place] % (Auto) 11.1 Eos % (Auto) 2.9 Baso % (Auto) 0.5 Neut # (Auto) 6.8 H Lymph # (Auto) 0.6 L [place] # (Auto) 1.0 H Eos # (Auto) 0.3 Baso # (Auto) 0.0 Abs Immat Gran (auto) 0.06 H Imm/Tot Granulo (auto) 0.7 H Sodium 134 L Potassium 4.4 Chloride 98 Carbon Dioxide 28.2 Anion Gap 12.2 BUN 40.0 H Creatinine 1.51 H Est GFR ( Amer) 40 L Est GFR (Non-Af Amer) 33 L BUN/Creatinine Ratio 26.5 Glucose 152 H Calcium 9.1 Total Bilirubin 0.5 AST 14 L ALT 9 L Alkaline Phosphatase 92 Total Protein 7.6 Albumin 2.6 L Globulin 5.0 Albumin/Globulin Ratio 0.5 POC Glucose 130 H
--- NOTE | 2024-11-14 11:24 | PT.DAILY ---
Physical Therapy Daily Note PT Daily Note/Assess Start: 11/12/24 13:51 Freq: Status: Active Protocol: Document 11/14/24 10:20 NEL (Rec: 11/14/24 11:24 NEL [id number]) Physical Therapy Daily Note/Assessment Time In/Time Out Time In 10:21 Time Out 10:40 Subjective Subjective Patient reports feeling better, however still with SOB/ racing heart feeling during activity. Patient is up in chair at start of RX and agrees to RX. Therapeutic Exercise Time Therapeutic Exercise 14 Minutes (minutes) Therapeutic Exercise 1 Units Therapeutic Exercise Treatment Therapeutic Exercise Seated exercises with AROM, isometrics and resisted red Treatment thera-band 10 reps each. Therapeutic Activity Time Therapeutic Activity 5 Minutes (minutes) Therapeutic Activity 0 Units Therapeutic Activity Treatment Chair Transfer Standby Assistance Ability Therapeutic Activity Endurance marching 30 seconds x 2 at RW today. Seated Comments rest break between trails. Fatigue quickly. Total Physical Therapy Time Total Therapy 19 Minutes Total Physical 1 Therapy Units Summary Daily Note Summary Progressed exercises to included resisted red thera- band to focus on B LE strength, patient tolerates without increase in pain, mild to moderate fatigue. Focused on endurance/strength training at RW with timed marches. Patient completes 30 second trials requiring seated rest break between trails. Patient becomes quickly SOB but does recover quickly with rest. Patient will benefit from SNF at [place] to build strength and endurance allowing her to safely return to [facility]. Patient was in chair with call light in reach, all needs met and family present in room.
[2024-11-14 12:06] LABS: Glucometer 313 mg/dL (74-106)
--- NOTE | 2024-11-14 12:11 | OT.DAILY ---
Occupational Therapy Daily Note OT Inpatient Daily Visit Note Start: 11/12/24 10:13 Freq: Status: Active Protocol: Document 11/14/24 11:50 [id number] (Rec: 11/14/24 12:10 [id number]) OT Visit Details Time In/Time Out Time In 09:47 Time Out 10:05 OT Treatment Plan Subjective Subjective Pt awake and alert, eager to participate and return to PLOF. Agreeable to patriciate to self-care tasks. Objective Objective Completed [id number] from recliner chair to standard walker, CGA for LOB. No dizziness or feeling lightheaded when standing. Walked to bathroom to participate in toileting tasks. Min A doffing LB garments. Successful voiding with CGA for monique-care. Mod A donning LB garments. CGA completing [id number] from toilet to walker. Good ambulation and HARRIET when going to recliner chair. Pt benefits from breaks due to SOB and occasional wheezing. Assessment Assessment Pt tolerated treatment well. Maintaining O2 on 3L [place]. Pt reports she has improved strength and endurance. Continue OT POC. OT Set Making Machine Operator Timed Codes Self-Half-Way 18 Management minutes ( minutes) Self-Half-Way 1 Management units
--- NOTE | 2024-11-14 12:51 | SWNOTE1 ---
Updates sent to [facility]. Updates included PT/OT note, physician note, labs, vitals, and nursing notes. Plan is for discharge tomorrow to [facility].
[2024-11-14] MEDS: INSULIN ASPART 300 UNIT/3 ML PEN SUBQ (12:56)
[2024-11-14] MEDS: DOCUSATE SODIUM 100 MG CAPSULE PO (14:13)
--- NOTE | 2024-11-14 15:15 | SWNOTE1 ---
[facility] is ready for pt tomorrow if stable for discharge. DORINA completed HENS online. SW stopped in room, family present. DORINA asked family and pt about transport and they voiced family can transport her over. Grand-daughter coming around 10:00 to see pt anyways. DORINA advised new doctor will be coming on tomorrow and unsure when she comes in to round and when she will have orders in. They voiced understanding. DORINA took pt's packet to the floor.
[2024-11-14 16:36] LABS: Glucometer 62 mg/dL (74-106)
[2024-11-14 16:57] LABS: Glucometer 85 mg/dL (74-106)
[2024-11-14 18:01] LABS: Glucometer 113 mg/dL (74-106)
[2024-11-14] MEDS: AMITRIPTYLINE HCL 25 MG TABLET PO (21:25)
[2024-11-14] MEDS: DOXYCYCLINE MONOHYDRATE 100 MG CAPSULE PO (21:25)
[2024-11-14] MEDS: ATORVASTATIN CALCIUM 20 MG TABLET PO (21:25)
[2024-11-14] MEDS: ROPINIROLE HCL 0.25 MG TABLET PO (21:25)
[2024-11-14 21:26] LABS: Glucometer 152 mg/dL (74-106)
[2024-11-15] VITALS (9 sets, daily range): BP systolic 143–157; BP diastolic 67–84; PULSE 66–88; TEMP 36.6; O2SAT 92–95
[2024-11-15] MEDS: IPRATROPIUM/ALBUTEROL SULFATE 3 ML AMPUL.NEB IH ×2 (05:12→10:27)
[2024-11-15 05:50] LABS: Basophils Percent Auto 0.4 % (0.2-2.0); Eosinophils Absolute Auto 0.2 10^3/uL (0.0-0.7); Hematocrit 27.2 % (36.0-48.0); Hemoglobin 8.1 g/dL (12.0-16.0); Immature Granulocytes Abs Auto 0.04 10^3/uL (0.00-0.03); Immature Granulocytes Pct Auto 0.4 % (0.0-0.5); Lymphocytes Absolute Auto 0.5 10^3/uL (1.2-3.8); Mean Corpuscular HGB Conc 29.8 g/dL (29.9-35.2); Mean Corpuscular Hemoglobin 27.1 pg (26.7-34.0); Mean Platelet Volume 9.9 fL (9.5-13.5); Monocytes Absolute Auto 0.9 10^3/uL (0.3-0.8); Monocytes Percent Auto 9.6 % (1.7-12.0); Neutrophils Absolute Auto 7.8 10^3/uL (1.4-6.5); Neutrophils Percent Auto 82.6 % (43.0-75.0); Platelet Count 260 10^3/uL (150-450); Red Blood Count 2.99 10^6/uL (4.20-5.40); White Blood Count 9.5 10^3/uL (4.0-11.0)
[2024-11-15 06:06] LABS: Alanine Aminotransferase 11 U/L (14-59); Albumin Globulin Ratio 0.6; Albumin Level 2.6 g/dL (3.4-5.0); Alkaline Phosphatase 87 U/L (46-116); Anion Gap 8.6; Aspartate Amino Transferase 12 U/L (15-37); BUN Creatinine Ratio 26.6; Bilirubin Total 0.6 mg/dL (0.2-1.0); Calcium 8.8 mg/dL (8.5-10.1); Carbon Dioxide 30.4 mmol/L (21.0-32.0); Chloride 98 mmol/L (98-107); Estimated GFR (African America 38 (>=60 mL/min/1.73m^2); Estimated GFR (Non-African Ame 31 (>=60 mL/min/1.73m^2); Globulin 4.7 g/dL; Glucose 133 mg/dL (74-106); Sodium 133 mmol/L (136-145); Total Protein 7.3 g/dL (6.4-8.2)
[2024-11-15] MEDS: GABAPENTIN 100 MG CAPSULE PO (06:29)
[2024-11-15] MEDS: PANTOPRAZOLE SODIUM 40 MG TABLET.DR PO (06:29)
--- NOTE | 2024-11-15 07:49 | P.DS_ITS ---
DS: Providers Provider Date of admission: 11/12/24 11:04 Primary care physician: JHONATAN LUCIA Attending physician on admission: Shaikh Harshad Consults: 11/11/24 12:34 Occupational Therapy Eval and Treat Routine Reason for consultation: Ambulatory dysfunction/weakness Physical Therapy Eval and Treat Routine Reason for consultation: Ambulatory dysfunction/weakness 11/12/24 Consult to Pulmonology Routine Consulting Provider: Roland Tan Reason for consultation: pneumonia/lung mass Discharging clinician: Milvia Arreola DS: Diagnosis Discharge Diagnosis (1) Lung mass: (2) Right lower lobe pneumonia: Qualifiers: Pneumonia type: due to unspecified organism Qualified Code(s): J18.9 - Pneumonia, unspecified organism (3) Atrial fibrillation with RVR: (4) Hypotension due to hypovolemia: (5) Chronic hypoxic respiratory failure: (6) Chronic heart failure with preserved ejection fraction (HFpEF): (7) Diabetes: Qualifiers: Chronic kidney disease stage: stage 3 (moderate) Chronic kidney disease stage 3 subtype: stage 3b (GFR 30-44) Diabetes mellitus complication detail: with chronic kidney disease Diabetes mellitus complication status: with kidney complications Diabetes mellitus marine oil terminal superintendent insulin use: with penitentiary use Diabetes mellitus type: type 2 Qualified Code(s): E11.22 - Type 2 diabetes mellitus with diabetic chronic kidney disease; N18.32 - Chronic kidney disease, stage 3b; Z79.4 - detention (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 of insulin (8) CKD stage 3b, GFR 30-44 ml/min: (9) Hypertension: Qualifiers: Hypertension type: primary hypertension Qualified Code(s): I10 - Essential (primary) hypertension (10) HLD (hyperlipidemia): Qualifiers: Hyperlipidemia type: unspecified Qualified Code(s): E78.5 - Hyperlipidemia, unspecified DS: Summary Hospital Course Hospital Course: Patient admitted on 11/11/24, for 84-year-old female with history of COPD, chronic respiratory failure with hypoxia who lives at home reports generalized weakness and frequent falls for past 1 week. Patient lives at home by herself and has a home nurse who visits her every week. Patient reports that she had 3 falls past 1 week. She did not lose consciousness but reports feeling lightheaded and overall weak before her falls. She has chronic cough but feels that her cough is worse than usual. Upon evaluation in ED, patient was initially hypotensive with blood pressure as low as 70/50. She was given 1 L IV fluid bolus. Patient's imaging is concerning for right lower lobe pneumonia. Patient denies recent hospital admission, recent antibiotic use. She denies fever, shortness of breath. Hospitalist team consulted for admission for hypotension secondary to hypovolemia/pneumonia. Patient was placed on Levaquin but after worsening status on 11/12/24 was switched to IV doxycycline. She has history of AFIB but became more unstable, with HR >100's. Medications were adjusted and she received some IV lopressor. There was also finding of Lung mass that has been worked up outpatient. She Has seen pulmonary and Dr. Tan was also consulted on 11/12/24 and patient reiterated she wanted nothing further done with the lung mass, no imaging repeated, no biopsies. At the time of discharge, Patient's blood pressures have been stable, 120's/60's, HR 80's, and she is saturating >90% on 2L via NC which is her baseline. WBC's stable at 9.5. Patient with CKD and Cr 1.58. PT/OT has recommended longterm facility at discharge and patient is amendable to this. She will be discharged today to the [facility]. She will complete a 10 day course of Doxycycline. She will need to have repeat labs cbc, bmp in 1 week and follow up with her PCP once discharged from facility. She will be discharged on 2L NC via continuous oxygen which is her baseline. Home medications remain the same. Blood cultures were negative at the time of discharge. Status at Discharge Functional status at discharge: uses cane/walker Overall status at discharge: patient is progressing back to baseline Time Spent with Patient Time attestation: Total time spent providing and/or coordinating discharge services: Time spent: greater than 30 minutes Exam Narrative Exam Narrative: General: Patient is alert, and oriented to person, place and time with normal affect, proper hygiene Skin: no visible rashes, or ulcers Head: atraumatic, acephalic Heart: Normal rate and irregular rhythm, no murmurs/rubs/gallops Lungs:diminished breath sounds all lung sher Abdomen: Normal audible bowel sounds, no distension, No palpable masses, no organomegaly, no rebound/guarding/ or rigidity Musculoskeletal: no swelling bilateral lower extremities Neuro: CN II-X grossly intact Constitutional Vital Signs, click to edit/add: Last Vital Signs Temp 97.8 F 11/15/24 03:00 Pulse 88 11/15/24 06:00 Resp 18 11/15/24 05:12 BP 143/67 H 11/15/24 03:00 Pulse Ox 95 11/15/24 05:12 O2 Del Method Nasal Cannula 11/15/24 05:12 O2 Flow Rate 3 11/15/24 05:12 DS: Data Data Completed and Pending Labs on day of discharge: Labs from last 24 hours 11/15/24 11/14/24 11/14/24 05:08 21:24 18:00 WBC 9.5 RBC 2.99 L Hgb 8.1 L Hct 27.2 L MCV 91.0 MCH 27.1 MCHC 29.8 L RDW 17.0 H Plt Count 260 MPV 9.9 Neut % (Auto) 82.6 H Lymph % (Auto) 5.0 L Clare % (Auto) 9.6 Eos % (Auto) 2.0 Baso % (Auto) 0.4 Neut # (Auto) 7.8 H Lymph # (Auto) 0.5 L Clare # (Auto) 0.9 H Eos # (Auto) 0.2 Baso # (Auto) 0.0 Abs Immat Gran (auto) 0.04 H Imm/Tot Granulo (auto) 0.4 Sodium 133 L Potassium 4.0 Chloride 98 Carbon Dioxide 30.4 Anion Gap 8.6 BUN 42.0 H Creatinine 1.58 H Est GFR ( Amer) 38 L Est GFR (Non-Af Amer) 31 L BUN/Creatinine Ratio 26.6 Glucose 133 H Calcium 8.8 Total Bilirubin 0.6 AST 12 L ALT 11 L Alkaline Phosphatase 87 Total Protein 7.3 Albumin 2.6 L Globulin 4.7 Albumin/Globulin Ratio 0.6 POC Glucose 152 H 113 H 11/14/24 11/14/24 11/14/24 16:56 16:29 12:05 WBC RBC Hgb Hct MCV MCH MCHC RDW Plt Count MPV Neut % (Auto) Lymph % (Auto) Clare % (Auto) Eos % (Auto) Baso % (Auto) Neut # (Auto) Lymph # (Auto) Clare # (Auto) Eos # (Auto) Baso # (Auto) Abs Immat Gran (auto) Imm/Tot Granulo (auto) Sodium Potassium Chloride Carbon Dioxide Anion Gap BUN Creatinine Est GFR ( Amer) Est GFR (Non-Af Amer) BUN/Creatinine Ratio Glucose Calcium Total Bilirubin AST ALT Alkaline Phosphatase Total Protein Albumin Globulin Albumin/Globulin Ratio POC Glucose 85 62 L 313 H 11/14/24 08:13 WBC RBC Hgb Hct MCV MCH MCHC RDW Plt Count MPV Neut % (Auto) Lymph % (Auto) Clare % (Auto) Eos % (Auto) Baso % (Auto) Neut # (Auto) Lymph # (Auto) Clare # (Auto) Eos # (Auto) Baso # (Auto) Abs Immat Gran (auto) Imm/Tot Granulo (auto) Sodium Potassium Chloride Carbon Dioxide Anion Gap BUN Creatinine Est GFR ( Amer) Est GFR (Non-Af Amer) BUN/Creatinine Ratio Glucose Calcium Total Bilirubin AST ALT Alkaline Phosphatase Total Protein Albumin Globulin Albumin/Globulin Ratio POC Glucose 130 H Preliminary micro results at discharge 11/11/24 12:30 Blood Culture Result 2 - Preliminary Blood - Right Antecubital NO GROWTH AT 36-48 HOURS. FINAL TO FOLLOW. 11/11/24 12:28 Blood Culture Result 1 - Preliminary Blood - Left Hand NO GROWTH AT 36-48 HOURS. FINAL TO FOLLOW. Discharge Plan Discharge Disposition: Xfer SNF Discharge Medications: New doxycycline hyclate 100 mg tablet 100 mg PO BID Qty: 10 0RF Continued carvedilol [Coreg] 12.5 mg tablet 12.5 mg PO BID Rx Instructions: must administer with a meal/food amitriptyline 25 mg tablet 25 mg PO .QHS Breztri Aerosphere 160-9-4.8 mcg/actuation HFA aerosol inhaler 2 inh INHALATION DAILY colchicine 0.6 mg tablet 0.6 mg PO DAILY alprazolam 0.25 mg tablet 0.25 mg PO .QHS PRN (Reason: anxiety) 2 Days Qty: 2 0RF gabapentin 100 mg capsule 100 mg PO TID 2 Days Qty: 6 0RF atorvastatin 20 mg tablet 20 mg PO QPM bupropion HCl 150 mg tablet sustained-release 12 hr 150 mg PO BID digoxin 125 mcg (0.125 mg) tablet 0.125 mg PO DAILY insulin lispro protamin-lispro 100 unit/mL (75-25) insulin pen 10 unit SUBCUT BID omeprazole 40 mg capsule,delayed release(DR/EC) 40 mg PO DAILY ropinirole 0.25 mg tablet 0.25 mg PO QPM torsemide 20 mg tablet 60 mg PO DAILY escitalopram oxalate 10 mg tablet 10 mg PO DAILY Print Language: Macanese Activity Restrictions/Additional Instructions: wears 2L continuous oxygen via Nasal Cannula Forms: Portal Instructions Discharge Date/Time: 11/15/24 11:35 Discharge Location: [facility] Discharge location: to [facility]
[2024-11-15] MEDS: DOXYCYCLINE MONOHYDRATE 100 MG CAPSULE PO (09:41)
[2024-11-15] MEDS: BUPROPION HCL 150 MG SR TABLET 12H PO (09:41)
[2024-11-15] MEDS: CARVEDILOL 12.5 MG TABLET PO (09:41)
[2024-11-15] MEDS: HEPARIN SODIUM (PORCINE) 5,000 UNIT/ML VIAL 5000 UNIT SUBQ (09:41)
[2024-11-15] MEDS: ESCITALOPRAM 10 MG TABLET PO (09:41)
[2024-11-15] MEDS: DIGOXIN 125 MCG TABLET PO (09:41)
[2024-11-15] MEDS: TORSEMIDE 20 MG TABLET PO (09:41)
--- NOTE | 2024-11-15 11:18 | PC.NURSE ---
report given to [facility]. all questions answered
== END 2024-11-15 11:35 | DRG 194 ==
LOC: ER 12:52 → MS 15:12
PROVIDERS: Admitting Provider Internal Medicine; Emergency Provider Emergency Medicine; PCP Internal Medicine; Visit Provider Family Medicine
DX: J18.9 Pneumonia, unspecified organism (principal); E87.1 Hypo-osmolality and hyponatremia; I13.0 Hypertensive heart and chronic kidney disease with heart failure and stage 1 through stage 4 chronic kidney disease, or unspecified chronic kidney disease; I50.32 Chronic diastolic (congestive) heart failure; J96.11 Chronic respiratory failure with hypoxia; J44.0 Chronic obstructive pulmonary disease with (acute) lower respiratory infection; I48.19 Other persistent atrial fibrillation; N17.9 Acute kidney failure, unspecified; R91.8 Other nonspecific abnormal finding of lung field; E86.1 Hypovolemia; Z66 Do not resuscitate; E11.22 Type 2 diabetes mellitus with diabetic chronic kidney disease; F41.9 Anxiety disorder, unspecified; N18.32 Chronic kidney disease, stage 3b; J43.2 Centrilobular emphysema; F32.A Depression, unspecified; K21.9 Gastro-esophageal reflux disease without esophagitis; I27.20 Pulmonary hypertension, unspecified; Z79.4 Long term (current) use of insulin; E78.5 Hyperlipidemia, unspecified; R29.6 Repeated falls; I25.2 Old myocardial infarction; Z95.2 Presence of prosthetic heart valve; Z79.51 Long term (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 of inhaled steroids; Z87.891 Personal history of nicotine dependence; Z79.899 Other long term (current) drug therapy; Z88.0 Allergy status to penicillin; Z88.5 Allergy status to narcotic agent
CPT/HCPCS: 36415; 70450; 71045; 71250; 72125; 80053; 80162; 81003; 82948; 83605; 84484; 85007; 85025; 85027; 85610; 87040; 93005; 94640; 94667; 94668; 94761; 96361; 96365; 96372; 97110; 97161; 97165; 97530; 97535; 99285; G0378; J1644

== ENCOUNTER 2024-11-29 12:53 | Emergency (ER) | payer MEDICARE, OTHER, SELFPAY ==
--- OUTSIDE RECORDS SUMMARY | 2023-10-04 10:15 | XMS_ITS ---
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 Role Phone PCP, NO Primary Care Provider Tara Godfrey Unavailable [phone] Allergies Allergen (clinical drug ingredient) Drug/Non Drug Allergy documented on EMR Reaction Allergy Type Onset Date Status Penicillin (uncoded) hives Allergy Active codeine codeine stomach issues Drug Allergy Ac tive REASON FOR VISIT Post BL Lumbar MBB L3, L4, L5 - discuss RFA, Lower back pain Medications Medication SIG (Take, Route, Frequency, Duration) Notes Start Date End Date Status escitalopram 10 mg 1 tab(s) orally once a day Active levothyroxine 50 mcg (0.05 mg) 1 tab(s) orally once a day Active insulin lispro Activ e gabapentin 100 mg 1 cap(s) orally 3 ti mes a day Active ALPRAZolam 0.25 mg 1 tab(s) orally ever y 6 hours Active amLODIPine 5 mg 1 tab(s) orally once a day Active rOPINIRole 0.25 mg 1 tab(s) orally once a day, at bedtime Active Windsor 325 mg-5 mg 1 tab(s) orally ever y 6 hours Active lisinopril 20 mg 1 tab(s) orally once a day Active digoxin 125 mcg (0.125 mg) 1 tab(s) oral ly once a day Active torsemide 20 mg 1 tab(s) orally once a day Active buPROPion 150 mg/12 hours 1 tab(s) orall y 2 times a day Active atorvastatin 20 mg 1 tab(s) orally once a day Active carvedilol 12.5 mg 0.5 tab(s) orally 2 times a day Active Social History Tobacco Use: Social History Observation Description Date Details (start date - stop date) Never Smoker NA - NA Smoking History Question Answer Notes Smoking Status NonSmoker Vital Signs Height 62 in 10/04/2023 Weight 155 lbs 10/04/2023 BMI 28.35 10/04/2023 Blood pressure systolic 122 mm Hg 10/04/19 24 Blood pressure diastolic 81 mm Hg 024 Procedures Procedure Date Ordered Date Performed Result Body Sit e Lumbar Facet RFA 1st 10/04/2023 10/04/2023 N/A Encounters Encounter Location Date Provider Diagnosis [facility] [address] [place] [address] 10/04/2023 Tara Jacobson Lumbar spondylosis M47.816 and Lumbar disc disease M51.9 Assessments Encounter Date Diagnosis (ICD Code) Assessment Notes Treatment Notes Treatment Clinical Notes Section Notes 10/04/2023 Lumbar spondylosis (ICD-10 - M47.816) 10/04/2023 Lumbar disc disease (ICD-10 - M51.9) 10/04/2023 Other After thorough history, physical examination, and review of patient's previous treatments and imaging results, a description of the patient's painful diagnoses was performed. This was discussed with patient today with use of diagrams and plastic models. Risks and benefits associated with treatments were discussed and the following plan was developed with the patient: 1. Interventional: Patient will be scheduled for BILATERAL radiofrequency ablation at L3, L4, L5 under fluoroscopic guidance. Patient has undergone 2 sets of diagnostic medial branch blocks with greater than 80% improvement of her low back pain during the diagnostic phase. 2. Medications: The patient will continue with their current medication regimen without changes. 3. Activity: The patient is recommended to continue with their home physical therapy exercise program and activity as tolerated. 4. Follow up: Patient will follow-up approximately 6 to 8 weeks after radiofrequency ablation or sooner if needed for reevaluation. Please consider this is a History and Physical for the interventional procedures listed above if scheduled within 30 days of this signed document. This note was generated through a speech recognition program and may contain errors due to phonetic interpretation. Plan Of Treatment Treatment Notes Assessment Notes Other After thorough history, physical examination, and review of patient's previous treatments and imaging results, a description of the patient's painful diagnoses was performed. This was discussed with patient today with use of diagrams and plastic models. Risks and benefits associated with treatments were discussed and the following plan was developed with the patient: 1. Interventional: Patient will be scheduled for BILATERAL radiofrequency ablation at L3, L4, L5 under fluoroscopic guidance. Patient has undergone 2 sets of diagnostic medial branch blocks with greater than 80% improvement of her low back pain during the diagnostic phase. 2. Medications: The patient will continue with their current medication regimen without changes. 3. Activity: The patient is recommended to continue with their home physical therapy exercise program and activity as tolerated. 4. Follow up: Patient will follow-up approximately 6 to 8 weeks after radiofrequency ablation or sooner if needed for reevaluation. Please consider this is a History and Physical for the interventional procedures listed above if scheduled within 30 days of this signed document. This note was generated through a speech recognition program and may contain errors due to phonetic interpretation. Progress Notes * KATHY VILLEGAS MDOB:1940 (83 yo F)Acc No.[id number]:10/04/2023 Patient: Ingrid OLEGARIOJorge AlbertoKATHY Provider: Helga Jacobson CNP :1940 [place] ge:83 Y S ex:Female Date:10/04/2023 Address:[address] [place] [address] [facility] [id number] Pcp:VANNA PCP Subjective: * Chief Complaints: * P ost BL Lumbar MBB L3, L4, L5 - discuss RFALower back pain * HPI: H PI: Patient presents today for routine postprocedure follow-up visit after undergoing 2 sets of bilateral medial branch blocks at L3, 4, 5 under fluoroscopic guidance. First set of injections were performed on 08/30/2023 and patient had greater than 80% improvement of her pain during the diagnostic phase. Second set of medial branch blocks were performed on 09/21/2023 and patient had 100% improvement of her pain during the diagnostic phase. This represents excellent diagnostic response. Patient has history of previous compression fracture which was treated at kyphoplasty of the T12 vertebral body. This area is still doing much better. She does have known moderate to severe spinal stenosis at L4-L5 and underwent lumbar epidural steroid injection at this level without significant improvements. She does have known significant facet arthropathy. She has low back pain without radicular symptoms, numbness tingling, weakness or loss of bowel or bladder. Based upon her excellent diagnostic response with recent 2 sets of medial branch blocks we did discuss proceeding with bilateral radiofrequency ablation at L3, 4, 5. Patient would like to proceed. * ROS: C onstitutional: Fever N o. G astrointestinal: Ulcer/Reflux N o. B loody Stool N o. ? M usculoskeletal: Joint pain Y es. A dmits B ack Pain. J oint stiffness Y es. H ematologic: Anemia N o. C ardiovascular: Chest pain N o. L eg/Ankle Swelling Y es. ? N eurological: Numbness/ Tingling N o. W eakness/ Paralysis of Feet/Hands N o. * Medical History: * Surgical History: C holecystectomy (gallbladder removal) Heart valve * Family History: F ather: diagnosed with Diabetes, Heart trouble. * Social History: S moking History S moking Status N onSmoker. C onsume alcohol D o you drink alcohol? N o. E xercise regularly D o you exercise? N o. W hat is your place of residence? W here do you live? P rivate home. * Medications: T akingatorvastatin 20 mg tablet 1 tab(s) orally once a day carvedilol 12.5 mg tablet 0.5 tab(s) orally 2 times a day torsemide 20 mg tablet 1 tab(s) orally once a day buPROPion 150 mg/12 hours tablet, extended release 1 tab(s) orally 2 times a day Windsor 325 mg-5 mg tablet 1 tab(s) orally every 6 hours lisinopril 20 mg tablet 1 tab(s) orally once a day amLODIPine 5 mg tablet 1 tab(s) orally once a day rOPINIRole 0.25 mg tablet 1 tab(s) orally once a day, at bedtime digoxin 125 mcg (0.125 mg) tablet 1 tab(s) orally once a day gabapentin 100 mg capsule 1 cap(s) orally 3 times a day ALPRAZolam 0.25 mg tablet 1 tab(s) orally every 6 hours levothyroxine 50 mcg (0.05 mg) tablet 1 tab(s) orally once a day insulin lispro escitalopram 10 mg tablet 1 tab(s) orally once a day Medication List reviewed and reconciled with the patientTaking atorvastatin 20 mg tablet 1 tab(s) orally once a day Taking carvedilol 12.5 mg tablet 0.5 tab(s) orally 2 times a day Taking torsemide 20 mg tablet 1 tab(s) orally once a day Taking buPROPion 150 mg/12 hours tablet, extended release 1 tab(s) orally 2 times a day Taking Windsor 325 mg-5 mg tablet 1 tab(s) orally every 6 hours Taking lisinopril 20 mg tablet 1 tab(s) orally once a day Taking amLODIPine 5 mg tablet 1 tab(s) orally once a day Taking rOPINIRole 0.25 mg tablet 1 tab(s) orally once a day, at bedtime Taking digoxin 125 mcg (0.125 mg) tablet 1 tab(s) orally once a day Taking gabapentin 100 mg capsule 1 cap(s) orally 3 times a day Taking ALPRAZolam 0.25 mg tablet 1 tab(s) orally every 6 hours Taking levothyroxine 50 mcg (0.05 mg) tablet 1 tab(s) orally once a day Taking insulin lispro Taking escitalopram 10 mg tablet 1 tab(s) orally once a day Medication List reviewed and reconciled with the patient * Allergies: P enicillin: hivescodeine: stomach issuesno[Allergies Verified] Objective: * Vitals: P ain Scale (NRS): 8, Ht: 62 in, Wt: 155 lbs, BMI:28.35, BP: 122/81 mm Hg, Pulse: 99. * Examination: M RI Imaging Studies: M RI of lumbar spine 03/08/2023:Stable degree of height loss at T12 with bone marrow edema consistent with subacute fracture involving the T12 vertebral body. There is 30% loss of height. Degenerative changes seen lumbar spine most prominent at L4- L5 where there is moderate to advanced canal stenosis secondary to disc bulge and facet hypertrophy. T12 vertebral body bone biopsy 05/09/2023:Bone modeling consistent with fracture site changes. Overall there is no evidence of an atypical infiltrate. Malignancy is not identified. . G eneral examination: G eneral Examination: Well-developed, well nourished. Alert and cooperative. Reliable historian. General Examination: Bilateral extremities both upper and lower have full range of motion and strength . S kin: W arm, dry and intact. C hest: E qual expansion, clear to auscultation bilaterally. N eurologic exam: S ensation appears intact to bilateral lower extremities to light touch. Motor strength is strong and equal to bilateral lower extremities. H EENT: E xtraocular movements intact, head is normocephalic and atraumatic. C ardiovascular: R egular rate and rhythm without murmurs, rubs or gallops. L umbar Spine: T enderness to palpation over the bilateral lower lumbar facet joints, worse on the right side. Increased pain with facet loading. Midline spinous processes are nontender. Seated straight leg raises negative for radicular findings. P sychological: N ormal affect . Assessment: * Assessment: 1. L umbar spondylosis - M47.816 2 . L umbar disc disease - M51.9 Plan: * Treatment: 2. O thers Notes: After thorough history, physical examination, and review of patient's previous treatments and imaging results, a description of the patient's painful diagnoses was performed. This was discussed with patient today with use of diagrams and plastic models. Risks and benefits associated with treatments were discussed and the following plan was developed with the patient: 1. Interventional: Patient will be scheduled for BILATERAL radiofrequency ablation at L3, L4, L5 under fluoroscopic guidance. Patient has undergone 2 sets of diagnostic medial branch blocks with greater than 80% improvement of her low back pain during the diagnostic phase. 2. Medications: The patient will continue with their current medication regimen without changes. 3. Activity: The patient is recommended to continue with their home physical therapy exercise program and activity as tolerated. 4. Follow up: Patient will follow-up approximately 6 to 8 weeks after radiofrequency ablation or sooner if needed for reevaluation. Please consider this is a History and Physical for the interventional procedures listed above if scheduled within 30 days of this signed document. This note was generated through a speech recognition program and may contain errors due to phonetic interpretation. * Procedure Codes: Forms: * Images: * Sign off status: Completed true * Provider: Helga Jacobson CNP Date: 0 10/04/2023 Generated for Alyssa walker/Shola/Tali on: 0 11/29/2024 01:04 PM EDT History and Physical Notes * HPI (History of Present Illness) Category Sub-Category Detail Notes Category Not es HPI Patient present s today for routine postprocedure follow-up visit after undergoing 2 sets of bilateral medial branch blocks at L3, 4, 5 under fluoroscopic guidance. First set of injections were performed on 08/30/2023 and patient had greater than 80% improvement of her pain during the diagnostic phase. Second set of medial branch blocks were performed on 09/21/2023 and patient had 100% improvement of her pain during the diagnostic phase. This represents excellent diagnostic response. Patient has history of previous compression fracture which was treated at kyphoplasty of the T12 vertebral body. This area is still doing much better. She does have known moderate to severe spinal stenosis at L4-L5 and underwent lumbar epidural steroid injection at this level without significant improvements. She does have known significant facet arthropathy. She has low back pain without radicular symptoms, numbness tingling, weakness or loss of bowel or bladder. Based upon her excellent diagnostic response with recent 2 sets of medial branch blocks we did discuss proceeding with bilateral radiofrequency ablation at L3, 4, 5. Patient would like to proceed. Examination Category Sub-Category Detail Notes Category Not es General examination General Examination: Well-developed, well nourished. Alert and cooperative. Reliable historian. General Examination: Bilateral extremities both upper and lower have full range of motion and strength MRI Imaging Studies MRI of lumbar spine 03/08/2023:Stable degree of height loss at T12 with bone marrow edema consistent with subacute fracture involving the T12 vertebral body. There is 30% loss of height. Degenerative changes seen lumbar spine most prominent at L4-L5 where there is moderate to advanced canal stenosis secondary to disc bulge and facet hypertrophy. T12 vertebral body bone biopsy 05/09/2023:Bone modeling consistent with fracture site changes. Overall there is no evidence of an atypical infiltrate. Malignancy is not identified. Skin Warm, dry and i ntact Chest Equal expansion , clear to auscultation bilaterally Neurologic exam Sensation ap pears intact to bilateral lower extremities to light touch. Motor strength is strong and equal to bilateral lower extremities. HEENT Extraocular mov ements intact, head is normocephalic and atraumatic Cardiovascular Regular rate and rhythm without murmurs, rubs or gallops Lumbar Spine Tenderness to p alpation over the bilateral lower lumbar facet joints, worse on the right side. Increased pain with facet loading. Midline spinous processes are nontender. Seated straight leg raises negative for radicular findings. Psychological Normal affect
--- OUTSIDE RECORDS SUMMARY | 2023-11-12 10:15 | XMS_ITS ---
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 Name Role Phone PCP, NO Primary Care Provider Unavailabl e Tara Jacobson Unavailable [phone] Kd Macias Unavailable [phone] REASON FOR VISIT BL RFA L3.4.5 - Sedation Encounters Encounter Location Date Provider Diagnosis [facility] [address] [place] [address] 11/12/2023 Kd Macias Lumbar spondylosis M47.816 Assessments Encounter Date Diagnosis (ICD Code) Assessment Notes Treatment Notes Treatment Clinical Notes Section Notes 11/12/2023 Lumbar spondylosis (ICD-10 - M47.816) Plan Of Treatment No Information Progress Notes * KATHY VILLEGAS MDOB:1940 (83 yo F)Acc No.[id number]:11/12/2023 Patient: Ingrid MOLINAKATHY Provider: Ksenia Macias MD :1940 A ge:83 Y S ex:Female Date:11/12/2023 Address[address] [facility] Pcp:NO PCP * Images: * Sign off status: Completed true * Provider: Ksenia Macias MD Date: 0 11/12/2023 Generated for Printi ng/Faxing/eTransmitting on: 11/29/2024 01:04 PM EDT
--- OUTSIDE RECORDS SUMMARY | 2023-12-27 09:30 | XMS_ITS ---
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 Medications Medication SIG (Take, Route, Frequency, Duration) Notes Start Date End Date Status rOPINIRole 0.25 mg 1 tab(s) orally once a day, at bedtime Active levothyroxine 50 mcg (0.05 mg) 1 tab(s) orally once a day Active ALPRAZolam 0.25 mg 1 tab(s) orally ever y 6 hours Active gabapentin 100 mg 1 cap(s) orally 3 ti mes a day Active digoxin 125 mcg (0.125 mg) 1 tab(s) oral ly once a day Active amLODIPine 5 mg 1 tab(s) orally once a day Active lisinopril 20 mg 1 tab(s) orally once a day Active [place] 325 mg-5 mg 1 tab(s) orally ever y 6 hours Active buPROPion 150 mg/12 hours 1 tab(s) orall y 2 times a day Active torsemide 20 mg 1 tab(s) orally once a day Active escitalopram 10 mg 1 tab(s) orally once a day Active carvedilol 12.5 mg 0.5 tab(s) orally 2 times a day Active insulin lispro Activ e atorvastatin 20 mg 1 tab(s) orally once a day Active Social History Tobacco Use: Social History Observation Description Date Details (start date - stop date) Never Smoker NA - NA AUDIT-C (Standard) Question Answer Notes Did you have a drink containing alcohol in the p ast year? No Points 0 Interpretation Negative Tobacco Control (Standard) Question Answer Notes Tobacco use: Nonsmoker Encounters Encounter Location Date Provider Diagnosis [facility] [address] [place] [address] 12/27/2023 Tara Jacobsno Plan Of Treatment No Information Progress Notes * KATHY VILLEGAS MDOB:1940 (84 yo F)Acc No.[id number]:12/27/2023 Patient: KATHY ARMANDO Provider: Helga Jacobson CNP :1940 A ge:83 Y S ex:Female Date:12/27/2023 [address] [facility] Pcp:NO PCP Subjective: * Chief Complaints: * 1 . 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 * Medical History: H eart problems: Yes, Diabetes: Yes, High Blood Pressure: Yes, Anxiety: Yes, Drug Allergies: Yes, Thyroid problems, Kidney problems. * Surgical History: C holecystectomy (gallbladder removal) , Heart valve . * Family History: F ather: diagnosed with Diabetes, Heart trouble. * Social History: C onsume alcohol D o you drink alcohol? N o. E xercise regularly D o you exercise? N o. W hat is your place of residence? W here do you live? P rivate home. A FABIO-C (Standard) D id you have a drink containing alcohol in the past year? N o, P oints 0 , I nterpretation N egative. T obacco Control (Standard) T obacco use: N onsmoker. * Medications: T aking atorvastatin 20 mg tablet 1 tab(s) orally once a day , Taking carvedilol 12.5 mg tablet 0.5 tab(s) orally 2 times a day , Taking torsemide 20 mg tablet 1 tab(s) orally once a day , Taking buPROPion 150 mg/12 hours tablet, extended release 1 tab(s) orally 2 times a day , Taking [place] 325 mg-5 mg tablet 1 tab(s) orally every 6 hours , Taking lisinopril 20 mg tablet 1 tab(s) orally once a day , Taking amLODIPine 5 mg tablet 1 tab(s) orally once a day , Taking rOPINIRole 0.25 mg tablet 1 tab(s) orally once a day, at bedtime , Taking digoxin 125 mcg (0.125 mg) tablet 1 tab(s) orally once a day , Taking gabapentin 100 mg capsule 1 cap(s) orally 3 times a day , Taking ALPRAZolam 0.25 mg tablet 1 tab(s) orally every 6 hours , Taking levothyroxine 50 mcg (0.05 mg) tablet 1 tab(s) orally once a day , Taking insulin lispro , Taking escitalopram 10 mg tablet 1 tab(s) orally once a day , Medication List reviewed and reconciled with the patient * Allergies: P enicillin: hives, codeine: stomach issues. Objective: * Vitals: Assessment: Plan: * Treatment: Forms: * Images: * Electronic signature of Ramírez Jacobson CNP on 11/29/2024 at 01:03 PM EDT Sign off status: Pending * Provider: Helga Jacobson CNP Date: 12/27/2023 Generated for Alyssa walker/Shola/Tali on: 11/29/2024 01:03 PM EDT
--- OUTSIDE RECORDS SUMMARY | 2024-09-24 09:00 | XMS_ITS ---
Author Organization [facility] in [place] Address [address] [place] [address] Care Team Providers Care Advertising Account Manager Name Role Phone Jasvir León MD Primary Care Provider Roland Soto Unavailable [phone] Allergies Allergen (clinical drug ingredient) Drug/Non Drug Allergy documented on EMR Reaction Allergy Type Onset Date Status A-Cillin (penicillin) rash Drug Allergy Active Codeine Phosphate (codeine) stomach upset Drug Allergy Active REASON FOR VISIT COPD Medications Medication SIG (Take, Route, Frequency, Duration) Notes Start Date End Date Status rOPINIRole HCl 0.25 MG TAKE 1 TABLET BY MOUTH 1-3 hours before bedtime Oral for 90 Days Active Torsemide 20 MG Oral for 90 Days Active Spironolactone 25 MG Oral for 90 Days Active Hyoscyamine Sulfate 0.125 MG DISSOLVE 2 (TWO) TABLET BY MOUTH EVERY 6 HOURS NEEDED FOR ABDOMINAL PAIN (MAX DAILY DOSE EIGHT TABLETS) Oral for 5 Days Active HYDROcodone-Acetaminophen 5-325 MG Oral for 10 Days Active Ondansetron HCl 4 MG TAKE 1 TABLET BY MO UT EVERY 8 HOURS NEEDED FOR NAUSEA and FOR VOMITING Oral for 7 Days Active Omeprazole 40 MG TAKE 1 CAPSULE BY MO UTH DAILY Oral for 90 Days Active Insulin Lispro Prot & Lispro (75-25) 100 UNIT/ML Inject TEN Units under the skin in the morning and TEN Units in the evening. Inject with meals. Subcutaneous for 75 Days Active Gabapentin 100 MG TAKE 1 CAPSULE BY MO UTH THREE TIMES DAILY (IN THE MORNING, IN THE EVENING and AT BEDTIME) Oral for 90 Days Active Escitalopram Oxalate 10 MG TAKE 1 TABLET BY MOUTH DAILY Oral for 90 Days Active Colchicine 0.6 MG TAKE 1 TABLET BY TEODORO DAILY Oral for 30 Days Active Carvedilol 12.5 MG Oral for 90 Days Active buPROPion HCl ER (SR) 150 MG Take 1 tablet (150 mg) by mouth in the morning and 1 tablet (150 mg) before bedtime. Oral for 90 Days Active Farxiga 10 MG 1 tablet Orally Once a day Active Atorvastatin Calcium 20 MG Oral for 90 Days Active amLODIPine Besylate 5 MG 1 tablet Orally Once a day for 30 day(s) 09/24/2024 Active ALPRAZolam 0.25 MG Oral for 30 Days Active Clotrimazole 10 MG 1 erinn while on immunosuppressive medicine Mouth/Throat Three times a day Active Lisinopril 20 MG 1 tablet Orally Once a day Active Digoxin 125 MCG 1 tablet Orally Active Stiolto Respimat 2.5-2.5 MCG/ACT 2 puffs Inhalation Once a day 09/24/2024 Active Social History Tobacco Use: Social History Observation Description Date Details (start date - stop date) Former Smoker NA - NA Tobacco Control (Standard) Question Answer Notes Tobacco use: Former smoker How long has it been since y ou last smoked? Greater than 10 years Additional Findings: Tobacco non-user Ex -moderate cigarette smoker (10-19/day) Problems Problem Type SNOMED Code ICD Code Onset Dates Problem Status W/U Status Risk Notes Problem Centrilobular emphysema (80129877) Centrilobular emphysema (J43.2) Active confirmed Problem Lung mass (273174720) Lung mass (R91.8) Active confirmed Problem Hilar lymphadenopathy (35479008) Hilar lymphadenopathy (R59.0) Active confirmed Problem Chronic respiratory failure (18436903) Chronic respiratory failure with hypoxia (J96.11) Active confirmed Problem Obstructive sleep apnea syndrome (41711172) ZIA (obstructive sleep apnea) (G47.33) Active confirmed Problem Secondary pulmonary hypertension (09203620) Other secondary pulmonary hypertension (I27.29) Active confirmed Problem Chronic kidney disease stage 3A (disorder) (865387373) Chronic kidney disease, stage 3a (N18.31) Active confirmed Problem Ex-tobacco user (finding) (114743113) History of tobacco abuse (Z87.891) Active confirmed Vital Signs Temperature 96.9 degrees Fahrenheit 09/25/19 25 Blood pressure systolic 110 mm Hg 03/19/20 25 Blood pressure diastolic 75 mm Hg 025 Heart Rate 71 /min 09/24/2024 Respiratory Rate 18 /min 09/24/2024 Height 62 in 09/24/2024 Weight 133.8 lbs 09/24/2024 BMI 24.47 kg/m2 09/24/2024 Oximetry 93 % 09/24/2024 2L O2 Activity/Resting Procedures Procedure Date Ordered Date Performed Result Body Sit e Inhaler Teaching/Aerosol-performed 09/24/2024 09/24/2024 N /A PFT (32595, 09320, 51184) 09/24/2024 10/08/2024 N/A Encounters Encounter Location Date Provider Diagnosis Pul[facility] [place] [address] [place] [address] 09/24/2024 Roland Tan Centrilobular emphys moon J43.2 ; Lung mass R91.8 ; Hilar lymphadenopathy R59.0 ; Chronic respiratory failure with hypoxia J96.11 ; Chronic kidney disease, stage 3a N18.31 ; Other secondary pulmonary hypertension I27.29 and History of tobacco abuse Z87.891 Assessments Encounter Date Diagnosis (ICD Code) Assessment Notes Treatment Notes Treatment Clinical Notes Section Notes 09/24/2024 Centrilobular emphysema (ICD-10 - J43.2) Emphysematous changes noted on chest CT imaging. History of tobacco abuse. Symptomatic with dyspnea, has been previously w/up and tx by cardiology. Discussed that ongoing SOB may be d/t untreated ZIA. Recommended PFT to assess for COPD (or even asthma). Patient voiced agreement. After she has PFT done, discussed starting a maintenance inhaler to see if there is any benefit. Explained adverse effects with medications such as dry mouth with LAMA and palpitations/tremor s with LABA. Patient voiced she would be willing to try something. Will begin Stiolto (LAMA/LABA) @ 2 puffs QD. Inhaler demonstration was performed with the patient. Appropriate technique was demonstrated. Proper timing for administration was reviewed. Samples provided. Showed patient how to insert cartridge and prime the inhaler. Patient & family voiced understanding. F/U ~6 weeks to review PFT & response to Stiolto. 09/24/2024 Lung mass (ICD-10 - R91.8) Imaging shows slowly increasing size of LLL pleural-based mass over the past ~4 years. Reviewed multiple imaging studies: -08/14/2024: 5cm -04/25/2024: 5cm (imaging not available) -10/06/2022: 2.2cm -09/04/2020: 1.6cm Showed and explained imaging studies to patient & her family. Discussed differential diagnosis. Most likely explanations include: -Loculated pleural effusion -Rounded atelectasis (patient denies exposure to asbestos) -Neoplasm (very slow growing such as adenocarcinoma) Options for evaluation were reviewed, along with pros & cons: -Do nothing - patient stated if it were cancer, she would not want anything done. Given her cardiac status and other co-morbidities, the treatment would likely be worse than the disease -Repeat chest CT - it would require contrast d/t lymphadenopathy seen on chest CTA 04/25/2024; the 08/14/2024 study was only of the abdomen/pelvis. She has CKD and there is risk of renal damage with impaired GFR. -PET/CT - if this is a slow-growing neoplasm, PET may be a false negative -Biopsy via CT-guided - risk of pneumothorax, would need to be off antiplatelets/antic oagulants -Biopsy via thoracic surgery - patient is high risk for morbidity After lengthy discussion of pros and cons, the patient elected to proceed with a F/U chest CT. Will order a chest CT with contrast which would be due mid-October 2024 - this is 6 months from the last fully-dedicated chest CT which also showed the mediastinal and hilar lymphadenopathy. Will review results at her F/U visit the end of October. 09/24/2024 Hilar lymphadenopathy (ICD-10 - R59.0) As above, noted on chest CT 04/25/2024. Requires IVP dye to evaluate, need to check renal function prior to study. 09/24/2024 Chronic respiratory failure with hypoxia (ICD-10 - J96.11) Patient is on chronic O2 therapy associated with multiple cardiac conditions. 09/24/2024 Chronic kidney disease, stage 3a (ICD-10 - N18.31) Secondary to underlying DM2. At risk of renal failure with IVP dye. Check creatinine prior to chest CT with contrast. 09/24/2024 Other secondary pulmonary hypertension (ICD-10 - I27.29) Left & right heart cathteterization 05/27/2024: -PA 56/30 (41) -PCWP 20 Most consistent with group 2 (cardiac). Treatment is treating the underlying disease. 09/24/2024 History of tobacco abuse (ICD-10 - Z87.891) Does not meet current LDCT screening criteria. Plan Of Treatment Medication Medication Name Sig Start Date Stop Date Notes Stiolto Respimat 2.5-2.5 MCG/ACT 2 puffs Inhalation Once a day 09/24/2024 Treatment Notes Assessment Notes Centrilobular emphysema Emphysematous changes noted on chest CT imaging. History of tobacco abuse. Symptomatic with dyspnea, has been previously w/up and tx by cardiology. Discussed that ongoing SOB may be d/t untreated ZIA. Recommended PFT to assess for COPD (or even asthma). Patient voiced agreement. After she has PFT done, discussed starting a maintenance inhaler to see if there is any benefit. Explained adverse effects with medications such as dry mouth with LAMA and palpitations/tremors with LABA. Patient voiced she would be willing to try something. Will begin Stiolto (LAMA/LABA) @ 2 puffs QD. Inhaler demonstration was performed with the patient. Appropriate technique was demonstrated. Proper timing for administration was reviewed. Samples provided. Showed patient how to insert cartridge and prime the inhaler. Patient & family voiced understanding. F/U ~6 weeks to review PFT & response to Stiolto. Lung mass Imaging shows slowly increasing size of LLL pleural-based mass over the past ~4 years. Reviewed multiple imaging studies: -08/14/2024: 5cm -04/25/2024: 5cm (imaging not available) -10/06/2022: 2.2cm -09/04/2020: 1.6cm Showed and explained imaging studies to patient & her family. Discussed differential diagnosis. Most likely explanations include: -Loculated pleural effusion -Rounded atelectasis (patient denies exposure to asbestos) -Neoplasm (very slow growing such as adenocarcinoma) Options for evaluation were reviewed, along with pros & cons: -Do nothing - patient stated if it were cancer, she would not want anything done. Given her cardiac status and other co-morbidities, the treatment would likely be worse than the disease -Repeat chest CT - it would require contrast d/t lymphadenopathy seen on chest CTA 04/25/2024; the 08/14/2024 study was only of the abdomen/pelvis. She has CKD and there is risk of renal damage with impaired GFR. -PET/CT - if this is a slow-growing neoplasm, PET may be a false negative -Biopsy via CT-guided - risk of pneumothorax, would need to be off antiplatelets/anticoagulants -Biopsy via thoracic surgery - patient is high risk for morbidity After lengthy discussion of pros and cons, the patient elected to proceed with a F/U chest CT. Will order a chest CT with contrast which would be due mid-October 2024 - this is 6 months from the last fully-dedicated chest CT which also showed the mediastinal and hilar lymphadenopathy. Will review results at her F/U visit the end of October. Hilar lymphadenopathy As above, noted on chest CT 04/25/2024. Requires IVP dye to evaluate, need to check renal function prior to study. Chronic respiratory failure with hypoxia Patient is on chronic O2 therapy associated with multiple cardiac conditions. Chronic kidney disease, stage 3a Secondary to underlying DM2. At risk of renal failure with IVP dye. Check creatinine prior to chest CT with contrast. Other secondary pulmonary hypertension Left & right heart cathteterization 05/27/2024: -PA 56/30 (41) -PCWP 20 Most consistent with group 2 (cardiac). Treatment is treating the underlying disease. History of tobacco abuse Does not meet current LDCT screening criteria. Next Appt Details Follow Up: 6 Weeks, Reason: Progress Notes * Jenni VILLEGAS MDOB:1940 (84 yo F)Acc No.[id number]:09/24/2024 New Patient Patient: Jenni ARMANDO Helga Provider: Binta Tan DO :1940 A ge:84 Y S ex:Female Date:09/24/2024 Address:[address] [place] [address] [place], [id number] Pcp:Jasvir León MD Check In:12:57 PM ESTCheck O ut:02:05 PM EST Subjective: * Chief Complaints: * C OPD * HPI: G eneral: NEW PATIENT 84yo female is referred here for SOB. However, the patient & here family are here under the impression that she is to be evaluated for anormal chest CT imaging... Due to this discrepancy, I evaluated both issues which required over 60 minutes of owyp-vf-otgi time with the patient. Regarding dyspnea, she has multiple cardiac issues including mitral and aortic valve disease (s/p TAVR), combined CHF, permanent afib, and pulmonary HTN. Appears cardiology feels her cardiac status has been optimized but she still complains of GARZA. She has a history of tobacco abuse with chest CT imaging noting emphysematous changes, but she denies ever having a PFT or using an inhaler. Regarding the abnormal chest CT, she had a CT abdomen/pelvic 08/14/2024 @ [facility] which noted a LLL pleural-based mass @ 5cm, previously measured at 2.4cm on 03/02/2023. She had a dedicated chest CTA 04/25/2024 @ [facility] which noted this mass was also 5cm. Prior imaging studies from 10/06/2022 and 09/04/2020 were reviewed - it appears to be present then, albeit smaller. I personally measured the areas which were 2.2cm and 1.6cm respectively. Other abnornmal findings on the 04/25/2024 chest CTA included mildly prominent mediastinal and hilar lymphadenopathy (L > R), small bilateral effusions, multiple acute left-sided rib fractures and remote right-sided rib fractures. The chest CT imaging f [facility] was not available for review, but I personally reviewed the imaging from the other aforementioned studies. MA Intake Comments:. Patient is referred from for COPD. Patient complains of SOB. Patient is currently on 2L O2 at home. DME: [facility]. Patient has not seen Pulmonary outpatient in the past. Patient is not currently taking any Pulmonary medications at this time. Patient is a former smoker and denies tobacco use today. Patient presents with her daughters today. Patient states she is following up on an Abnormal CT scan. * ROS: G eneral/Constitutional: Fever or sweats d enies. C hange of appetite d enies. C hills d enies. W eight Change d enies. H EENT: Dry mouth d enies. S ore throat d enies. O ral Ulcers d enies. P ost Nasal Drip D enies. C ongestion D enies. H oarseness?Denies. C ardiovascular: Tachycardia d enies. E martha a dmits. C hest pain d enies. P alpitations d enies. R espiratory: Chest tightness d enies. P leurisy D enies. D yspnea a dmits. C ough d enies. H emoptysis d enies. W heezing d enies. G astrointestinal: Acid Reflux/GERD/Heartburn d enies. D ysphagia d enies. M usculoskeletal: Arthralgias/joint pain D enies. S kin: Easy bruising d enies. R abdulaziz d enies. ? N eurologic: Seizures d enies. T remor d enies. H ematology: Abnormal Bleeding d enies. P sychiatric: Anxiety d enies. * Active Problem List J43.2 Centrilobular emphys moon Modified On:09/24/2024U Status:confirmed J96.11 Chronic respiratory failure with hypoxia Modified On:09/24/2024U Status:confirmed G47.33 ZIA (obstructive sle ep apnea) Modified On:09/24/2024U Status:confirmed R91.8 Lung mass Modified On:09/24/2024U Status:confirmed R59.0 Hilar lymphadenopath y Modified On:09/24/2024U Status:confirmed Z87.891 History of tobacco a buse Modified On:09/24/2024U Status:confirmed I27.29 Other secondary pulm onary hypertension Modified On:09/24/2024U Status:confirmed N18.31 Chronic kidney disea se, stage 3a Modified On:09/24/2024U Status:confirmed * Medical History: * Surgical History: c holecystectomy hysterectomy left knee arthroscopy TAVR 06/10/2024ardiac Catheterization 05/27/2024 * Hospitalization/Major Diagno stic Procedure: G astroenteritis-TB 08/15/2024 * Family History: S on(s): COPD. M igrated Family History:: Family history of diabetes mellitus paternal aunt;Father;. F ather: diagnosed with Diabetes mellitus without mention of complication, type II or unspecified type, not stated as uncontrolled, Unspecified heart disease. * Social History: T obacco Use: T obacco Control (Standard) T obacco use: F ormer smoker H ow long has it been since you last smoked??Greater than 10 years A dditional Findings: Tobacco non-user E x-moderate cigarette smoker (10-19/day) Electronic Cigarette use C urrent user N o LM: Additional Tobacco Questions N umber of Years Pt Smoked: 2 0 N umber of Packs per Day: 1 When did you stop smokin. 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 D rugs/Alcohol: D rugs H ave you used drugs other than those for medical reasons in the past 12 months? N o D oes the Patient have a History of Drug Abuse in the Past? N o Caffeine I ntake: 1 -2 cups per day Coffee Do you drink alcohol?: No. Do you smoke marijuana?: Denies. * Medications: T akingALPRAZolam 0.25 MG Tablet Oral amLODIPine Besylate 5 MG Tablet 1 tablet Orally Once a day Atorvastatin Calcium 20 MG Tablet Oral buPROPion HCl ER (SR) 150 MG Tablet Extended Release 12 Hour Take 1 tablet (150 mg) by mouth in the morning and 1 tablet (150 mg) before bedtime. Oral Carvedilol 12.5 MG Tablet Oral Clotrimazole 10 MG Erinn 1 erinn while on immunosuppressive medicine Mouth/Throat Three times a day Colchicine 0.6 MG Tablet TAKE 1 TABLET BY MOUTH DAILY Oral Digoxin 125 MCG Tablet 1 tablet Orally Escitalopram Oxalate 10 MG Tablet TAKE 1 TABLET BY MOUTH DAILY Oral Farxiga(Dapagliflozin Propanediol) 10 MG Tablet 1 tablet Orally Once a day Gabapentin 100 MG Capsule TAKE 1 CAPSULE BY MOUTH THREE TIMES DAILY (IN THE MORNING, IN THE EVENING and AT BEDTIME) Oral HYDROcodone-Acetaminophen 5-325 MG Tablet Oral Hyoscyamine Sulfate 0.125 MG Tablet Disintegrating DISSOLVE 2 (TWO) TABLET BY MOUTH EVERY 6 HOURS NEEDED FOR ABDOMINAL PAIN (MAX DAILY DOSE EIGHT TABLETS) Oral Insulin Lispro Prot & Lispro (75-25) 100 UNIT/ML Suspension Pen-injector Inject TEN Units under the skin in the morning and TEN Units in the evening. Inject with meals. Subcutaneous Lisinopril 20 MG Tablet 1 tablet Orally Once a day Omeprazole 40 MG Capsule Delayed Release TAKE 1 CAPSULE BY MOUTH DAILY Oral Ondansetron HCl 4 MG Tablet TAKE 1 TABLET BY MOUTH EVERY 8 HOURS NEEDED FOR NAUSEA and FOR VOMITING Oral rOPINIRole HCl 0.25 MG Tablet TAKE 1 TABLET BY MOUTH 1-3 hours before bedtime Oral Spironolactone 25 MG Tablet Oral Torsemide 20 MG Tablet Oral Taking ALPRAZolam 0.25 MG Tablet Oral Taking amLODIPine Besylate 5 MG Tablet 1 tablet Orally Once a day Taking Atorvastatin Calcium 20 MG Tablet Oral Taking buPROPion HCl ER (SR) 150 MG Tablet Extended Release 12 Hour Take 1 tablet (150 mg) by mouth in the morning and 1 tablet (150 mg) before bedtime. Oral Taking Carvedilol 12.5 MG Tablet Oral Taking Clotrimazole 10 MG Erinn 1 erinn while on immunosuppressive medicine Mouth/Throat Three times a day Taking Colchicine 0.6 MG Tablet TAKE 1 TABLET BY MOUTH DAILY Oral Taking Digoxin 125 MCG Tablet 1 tablet Orally Taking Escitalopram Oxalate 10 MG Tablet TAKE 1 TABLET BY MOUTH DAILY Oral Taking Farxiga(Dapagliflozin Propanediol) 10 MG Tablet 1 tablet Orally Once a day Taking Gabapentin 100 MG Capsule TAKE 1 CAPSULE BY MOUTH THREE TIMES DAILY (IN THE MORNING, IN THE EVENING and AT BEDTIME) Oral Taking HYDROcodone-Acetaminophen 5-325 MG Tablet Oral Taking Hyoscyamine Sulfate 0.125 MG Tablet Disintegrating DISSOLVE 2 (TWO) TABLET BY MOUTH EVERY 6 HOURS NEEDED FOR ABDOMINAL PAIN (MAX DAILY DOSE EIGHT TABLETS) Oral Taking Insulin Lispro Prot & Lispro (75-25) 100 UNIT/ML Suspension Pen-injector Inject TEN Units under the skin in the morning and TEN Units in the evening. Inject with meals. Subcutaneous Taking Lisinopril 20 MG Tablet 1 tablet Orally Once a day Taking Omeprazole 40 MG Capsule Delayed Release TAKE 1 CAPSULE BY MOUTH DAILY Oral Taking Ondansetron HCl 4 MG Tablet TAKE 1 TABLET BY MOUTH EVERY 8 HOURS NEEDED FOR NAUSEA and FOR VOMITING Oral Taking rOPINIRole HCl 0.25 MG Tablet TAKE 1 TABLET BY MOUTH 1-3 hours before bedtime Oral Taking Spironolactone 25 MG Tablet Oral Taking Torsemide 20 MG Tablet Oral Discontinuedaspirin Carvedilol tablet tablet Coumadin Dexilant(Dexlansoprazole) delayed release capsule delayed release capsule diltiazem capsule, extended release capsule, extended release Flonase 50 mcg/inh spray spray Lasix(Furosemide) Lexapro(Escitalopram Oxalate) Lipitor(Atorvastatin Calcium) tablet tablet potassium - tablet tablet traMADol HCl 50 mg tablet tablet Wellbutrin(buPROPion HCl ER (SR)) tablet tablet Xanax(ALPRAZolam) tablet tablet Medication List reviewed and reconciled with the patientDiscontinued aspirin Discontinued Carvedilol tablet tablet Discontinued Coumadin Discontinued Dexilant(Dexlansoprazole) delayed release capsule delayed release capsule Discontinued diltiazem capsule, extended release capsule, extended release Discontinued Flonase 50 mcg/inh spray spray Discontinued Lasix(Furosemide) Discontinued Lexapro(Escitalopram Oxalate) Discontinued Lipitor(Atorvastatin Calcium) tablet tablet Discontinued potassium - tablet tablet Discontinued traMADol HCl 50 mg tablet tablet Discontinued Wellbutrin(buPROPion HCl ER (SR)) tablet tablet Discontinued Xanax(ALPRAZolam) tablet tablet Medication List reviewed and reconciled with the patient * Allergies: A -Cillin (penicillin): rash - AllergyCodeine Phosphate (codeine): stomach upset - Allergyno[Allergies Verified] Objective: * Vitals: W t:133.8lbs, Ht:62in, BP:sittin/75mm Hg, Temp:Forehead:96.9F, HR: 113 /min,71/min, RR:18/min, BMI:24.47Index, Oxygen sat %: Oxygen 2l:79 %,Oxygen 2l:93%, Ht-cm: 157.48 cm, Wt-k.69 kg. 2L O2 Activity/Resting. * Examination: E xam: GENERAL APPEARANCE: A ppears stated age. Skin N ormal. Nose W earing nasal cannula. Mouth P ink and mildly dry. Oropharynx M allampati Class II. Trachea M idline. Chest N ormal. Respiratory Normal M ovements, E ffort N ormal. Auscultation D iminished breath sounds. Mild crackles in bases. No wheezes or rhonchi. Cardiac R egular rate and rhythm. Gastrointestinal N ormal. Vascular N o edema. Musculoskeletal N ormal posture. Neurological F ocal, intact. Psychiatric A lert and oriented x3. Mentation/Cognition N ormal. Assessment: * Assessment: 1. C entrilobular emphysema - J43.2 (Primary) 2 . L sandra mass - R91.8 ? 3 . H ilar lymphadenopathy - R59.0 4 . C hronic respiratory failure with hypoxia - J96.11 5 . C hronic kidney disease, stage 3a - N18.31 & #160; 6 . O ther secondary pulmonary hypertension - I27.29 7 . H istory of tobacco abuse - Z87.891 Plan: * Treatment: 2. L sandra mass L AB: CREATININE (Ordered for 10/21/2024) I maging: CT Chest w/contrast * (Ordered for 10/21/2024) Notes: Imaging shows slowly increasing size of LLL pleural-based mass over the past ~4 years. Reviewed multiple imaging studies: -08/14/2024: 5cm -04/25/2024: 5cm (imaging not available) -10/06/2022: 2.2cm -09/04/2020: 1.6cm Showed and explained imaging studies to patient & her family. Discussed differential diagnosis. Most likely explanations include: -Loculated pleural effusion -Rounded atelectasis (patient denies exposure to asbestos) -Neoplasm (very slow growing such as adenocarcinoma) Options for evaluation were reviewed, along with pros & cons: -Do nothing - patient stated if it were cancer, she would not want anything done. Given her cardiac status and other co-morbidities, the treatment would likely be worse than the disease -Repeat chest CT - it would require contrast d/t lymphadenopathy seen on chest CTA 04/25/2024; the 08/14/2024 study was only of the abdomen/pelvis. She has CKD and there is risk of renal damage with impaired GFR. -PET/CT - if this is a slow-growing neoplasm, PET may be a false negative -Biopsy via CT-guided - risk of pneumothorax, would need to be off antiplatelets/anticoagulants -Biopsy via thoracic surgery - patient is high risk for morbidity After lengthy discussion of pros and cons, the patient elected to proceed with a F/U chest CT. Will order a chest CT with contrast which would be due mid-October 2024 - this is 6 months from the last fully-dedicated chest CT which also showed the mediastinal and hilar lymphadenopathy. Will review results at her F/U visit the end of October. 3. H ilar lymphadenopathy L AB: CREATININE (Ordered for 10/21/2024) I maging: CT Chest w/contrast * (Ordered for 10/21/2024) Notes: As above, noted on chest CT 04/25/2024. Requires IVP dye to evaluate, need to check renal function prior to study. 4. C hronic respiratory failure with hypoxia Notes: Patient is on chronic O2 therapy associated with multiple cardiac conditions. 5. C hronic kidney disease, stage 3a Notes: Secondary to underlying DM2. At risk of renal failure with IVP dye. Check creatinine prior to chest CT with contrast. 6. O ther secondary pulmonary hypertension Notes: Left & right heart cathteterization 05/27/2024: -PA 56/30 (41) -PCWP 20 Most consistent with group 2 (cardiac). Treatment is treating the underlying disease. 7. H istory of tobacco abuse Notes: Does not meet current LDCT screening criteria. * Procedure Codes: 9 [id number] AEROSOLVAPOR INHAL * Preventive Medicine: COVID Vaccination: H as patient had COVID Vaccination? COVID Vaccination Y es 05/21/2023 Immunization Status: P neumovacc p neumovacc 23-04/12/2024. I nfluenza 1 . Z ostivax 0 09/11/2023. Screenings/Counseling: F ALL RISK SCREENING Fall Risk Assessment: N o falls in the past year Are you afraid of falling? Y es T [employer] ACTION PLAN Patient counselled on the dangers of tobacco use and urged to quit. 0 09/24/2024 Former Education on smoking effects provided?09/24/2024 Former * Follow Up: 6 Weeks * * Sign off status: Completed Visit Status: C HK (Check Out) true * Provider: Binta Tan DO Date: 0 09/24/2024 Generated for Alyssa walker/Shola/Celsoitting on: 0 11/29/2024 01:01 PM EDT History and Physical Notes * HPI (History of Present Illness) Category Sub-Category Detail Notes Category Not es General Patient is refe rred from for COPD. Patient complains of SOB. Patient is currently on 2L O2 at home. DME: [facility]. Patient has not seen Pulmonary outpatient in the past. Patient is not currently taking any Pulmonary medications at this time. Patient is a former smoker and denies tobacco use today. Patient presents with her daughters today. Patient states she is following up on an Abnormal CT scan. Examination Category Sub-Category Detail Notes Category Not es Exam GENERAL APPEARANCE: Appears stated age Skin Normal Eyes Ears Nose Wearing nasal cannul a Mouth [place] and mildly dry Trachea Midline Chest Normal Respiratory Normal Movements, Ef fort Normal Auscultation Diminished breath so unds. Mild crackles in bases. No wheezes or rhonchi Cardiac Regular rate and rhy thm Gastrointestinal Normal Vascular No edema Musculoskeletal Normal posture Neurological Focal, intact Psychiatric Alert and oriented x 3 Mentation/Cognition Normal Oropharynx Mallampati Class II
--- OUTSIDE RECORDS SUMMARY | 2024-10-08 11:00 | XMS_ITS ---
Author Organization [facility] in [place] Address [address] [place] [address] Care Team Providers Care Client Technologies Specialist Name Role Phone Mau MOULTON, Jasvir Primary Care Provider Roland Soto Unavailable [phone] REASON FOR VISIT COPD Encounters Encounter Location Date Provider Diagnosis Pulmonary Medicine [address] [address] 10/08/2024 Roland Tan Plan Of Treatment No Information Progress Notes * Jenni VILLEGAS MDOB:1940 (84 yo F)Acc No.[id number]:10/08/2024 UNLOCKED PROGRESS NOTE New Patient Patient: Ingrid MOLINA Jenni Partida Provider: Binta Tan DO :1940 A ge:84 Y S ex:Female Date:10/08/2024 Address:[address] [place] [address] [id number] Pcp:Jasvir León MD Subjective: * Chief Complaints: * 1 . COPD. * Medical History: Objective: * Vitals: Assessment: Plan: * Treatment: * * Electronic signature of Poornima Tan DO on 11/29/2024 at 01:04 PM EDT Sign off status: Pending Visit Status: R /S (Rescheduled) * Provider: Binta Tan DO Date: 10/08/2024 Generated for Printi ng/Faxing/eTransmitting on: 11/29/2024 01:04 PM EDT
--- OUTSIDE RECORDS SUMMARY | 2024-10-27 10:26 | XMS_ITS ---
Author Name Auto Generated Organization [place] Support Name Relationship Address Phone FUNK, BETY Next of Kin [address] [place] [id number] + JOSELUIS, FREDIS Next of Kin Unknown + FUNK, BETY Next of Kin Unknown + JOSELUIS, KARYN Next of Kin Unknown [phone] FUNK, BETY Next of Kin [address] [place] [id number] + JOSELUIS, FREDIS Next of Kin Unknown + FUNK, BETY Next of Kin [address] [place] [address] [place] [address] + JOSELUIS, FREDIS Next of Kin Unknown + FUNK, BETY Next of Kin Unknown + JOSELUIS, KARYN Next of Kin Unknown [phone] FUNK, BETY Next of Kin Unknown + JOSELUIS, KARYN Next of Kin Unknown [phone] FUNK, BETY Next of Kin Unknown + JOSELUIS, KARYN Next of Kin Unknown [phone] FUNK, BETY Next of Kin Unknown + JOSELUIS, KARYN Next of Kin Unknown [phone] FUNK, BETY Next of Kin Unknown + JOSELUIS, KARYN Next of Kin Unknown [phone] FUNK, BETY Next of Kin Unknown + JOSELUIS, KARYN Next of Kin Unknown [phone] FUNK, BETY Next of Kin Unknown + JOSELUIS, KARYN Next of Kin Unknown [phone] FUNK, BETY Next of Kin Unknown + JOSELUIS, KARYN Next of Kin Unknown [phone] FUNK, BETY Next of Kin Unknown + JOSELUIS, KARYN Next of Kin Unknown [phone] FUNK, BETY Next of Kin Unknown + JOSELUIS, KARYN Next of Kin Unknown [phone] FUNK, BETY Next of Kin Unknown + JOSELUIS, KARYN Next of Kin Unknown [phone] FUNK, BETY Next of Kin Unknown + JOSELUIS, KARYN Next of Kin Unknown [phone] FUNK, BETY Next of Kin Unknown + JOSELUIS, KARYN Next of Kin Unknown [phone] FUNK, BETY Next of Kin Unknown + JOSELUIS, KARYN Next of Kin Unknown [phone] FUNK, BETY Next of Kin Unknown + JOSELUIS, KARYN Next of Kin Unknown [phone] FUNK, BETY Next of Kin Unknown + JOSELUIS, KARYN Next of Kin Unknown [phone] FUNK, BETY Next of Kin Unknown + JOSELUIS, KARYN Next of Kin Unknown [phone] FUNK, BETY Next of Kin Unknown + JOSELUIS, KARYN Next of Kin Unknown [phone] FUNK, BETY Next of Kin [address] [facility] [address] [place] [address] + JOSELUIS, FREDIS Next of Kin Unknown + Roslyn, Bety Next of Kin Unknown + Catron, Karyn Next of Kin Unknown [phone] JOSELUIS, FREDIS Next of Kin Unknown + BETY BLAKELY Next of Kin Unknown + KARYN HUGGINS Next of Kin Unknown [phone] FREDIS HUGGINS Next of Kin Unknown + BETY BLAKELY Next of Kin Unknown + KARYN HUGGINS Next of Kin Unknown [phone] Care Team Providers Care Highway Construction Inspector Name Role Phone JASVIR LEÓN Attending Unavailable JASVIR LEÓN Attending Unavailable JASVIR LEÓN Attending Unavailable ROSINA HARDWICK Attending Unavailable JASVIR LEÓN Attending Unavailable JASVIR LEÓN Attending Unavailable Isaura Childs Consulting Unavailable Javan Gruber Attending Unavailable Jasvir León Primary Care Unavailable Lalo Carter Admitting Unavailabl Ingrid Hussein Consulting Unavailable LoweryPalmira santos Consulting Unavailable Jaron Sands Consulting Unavail able Christofer Hairston Consulting Unavailable Juwan Coelho Consulting Unavailab Bridgette Peguero Consulting Unavailable Becky Santiago Consulting Unavailable RuddyMarisol davenport Consulting Unavailab Genet Barclay Consulting Unavailable Angella Mac Consulting Unavailable CORONADO, KENDRA Referring Unavailable CORONADO, KENDRA Referring Unavailable CORONADO, KENDRA Referring Unavailable CORONADO, KENDRA Referring Unavailable CORONADO, KENDRA Referring Unavailable MOUKARBELJOSEFINA Referring Unavailable MOUKARBFROY, JOSEFINA Admitting Unavailable MOUKADARIO, JOSEFINA Attending Unavailable MOUKARBFROY, JOSEFINA Attending Unavailable CORONADO, KENDRA Referring Unavailable MOUKARBEL, JOSEFINA Referring Unavailable MOUKASHARYNEL, JOSEFINA Attending Unavailable GORDON ARNDT Attending Unavailable MOUKARBEL, JOSEFINA Attending Unavailable BRENT PERALTA Attending Unavailable MOUKARBFROY, JOSEFINA Attending Unavailable MOUKARBFROY, JOSEFINA Referring Unavailable MOUKARBEL, JOSEFINA Referring Unavailable MOUKARBEL, JOSEFINA Admitting Unavailable MOUKASHARYNEL, JOSEFINA Attending Unavailable MOUKADARIO, JOSEFINA Attending Unavailable MOUKARBEL, JOSEFINA Referring Unavailable CRAIG BRAUN Attending Unavailable PROBLEMS DATE TYPE CONDITION / CODE [facility]ENDING [facility] 07[facility]25[facility]24 Admitting Diagnosis Nonrheumatic tricuspid (valve) insufficiency / I36.1(ICD-10) JOSEFINA NOVA [facility] 05/15/2024 Admitting Diagnosis Presence of xenogenic heart valve / Z95.3(ICD-10) [facility] 10/30/2022 Admitting Diagnosis Pulmonary hypertension, unspecified / [facility]27.20(ICD-10) [facility] Admitting Diagnosis Chronic kidney disease, stage 3a / N18.31(ICD-10) [facility] Admitting Diagnosis Chronic diastolic (congestive) heart failure / I50.32(ICD-10) [facility] Admitting Diagnosis Unspecified injury of thorax, initial encounter / S29.9XXA(ICD-10) [facility] Admitting Diagnosis Permanent atrial fibrillation / I48.21(ICD-10) [facility] Admitting Diagnosis Nonrheumatic mitral (valve) stenosis / I34.2(ICD-10) [facility] Admitting Diagnosis Other specified postprocedural states / Z98.890(ICD-10) [facility] Admitting Diagnosis Nonrheumatic aortic (valve) stenosis / I35.0(ICD-10) [facility] 06/07/2022 Admitting Diagnosis Nonrheumatic aortic valve disorder, unspecified / I35.9(ICD-10) [facility] Admitting Diagnosis Presence of prosthetic heart valve / Z95.2(ICD-10) [facility] Admitting Diagnosis Other forms of dyspnea / R06.09(ICD-10) [facility] Admitting Diagnosis Other specified symptoms and signs involving the circulatory and respiratory systems / R09.89(ICD-10) NA [facility] 04/25/2024 Unknown Chest pain, unsp ecified / R07.9(ICD-10) [facility] 04/25/2024 Unknown Abnormal electrocardiogram [ECG] [EKG] / R94.31(ICD-10) [facility] 04/25/2024 Unknown Fracture of one rib, left side, initial encounter for closed fracture / S22.32XA(ICD-10) [facility] 04/25/2024 Unknown Essential (prima ry) hypertension / I10(ICD-10) [facility] 04/25/2024 Unknown Gastro-esophagea l reflux disease without esophagitis / K21.9(ICD-10) [facility] 04/25/2024 Unknown Type 2 diabetes mellitus without complications / E11.9(ICD-10) [facility] 06/07/2022 Admitting Diagnosis Rheumatic mitral valve disease, unspecified / I05.9(ICD-10) GORDON ARNDT Active [facility] 06/07/2022 Admitting Diagnosis Acute on chronic systolic (congestive) heart failure / I50.23(ICD-10) GORDON ARNDT [facility] PROCEDURES No Procedure Records Found RESULTS OFFICE VISIT Observed: 09/22/2024 11:30 AM Status: COMPLETED Source: [facility] [id number] Jenni Quinones [birth year] F Date Provider Department Center 09/22/2024 JOSEFINA STEIN [facility] Family History Problem Relation Age of Onset Diabetes Father Heart failure Father Other Other Family Status - Relation Status Age at Father Other Level of Service:41945 [place] OFFICE/OUTPATIENT ESTABLISHED MOD MDM 30 MIN PROGRESS Observed: 09/22/2024 11:30 AM Status: COMPLETED Source: [facility] - [facility] Subjective Jenni Quinones is a 84 y.o. year old female patient being seen for 2 mo follow up, and she is now 3 mo s/p TAVR. She was admitted to [facility] last month, and NSTEMI was questionable. Denies chest pain. SOB and palpitations remain stable and unchanged. 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 Mixed anxiety and depressive disorder Muscle weakness Obesity Obstructive sleep apnea syndrome Osteoarthritis of knee Osteopenia Peripheral vascular disease Primary localized osteoarthrosis of ankle and foot [...] valve stenosis Neurogenic claudication Aortic stenosis, severe Chronic hypoxic respiratory failure (CMS/HCC) Mass of left lung Oxygen dependent Family History Problem Relation Name Age of Onset Diabetes Father Heart failure Father Other (neoplastic disease) Other Social History Tobacco Use Smoking status: Former Types: Cigarettes Smokeless tobacco: Never Substance Use Topics Alcohol use: Not Currently Drug use: Never SHERRY Arteaga is seen in follow-up. She [...] She has history of prior admissions to [facility] with AF/RVR and diastolic heart [...] catheterization 05/27/2024 showed minimal coronary artery disease and significantly elevated filling and pulmonary pressures. Eventually she underwent valve in valve TAVR on 06/20/2024 via percutaneous transaxillary access due to her severe peripheral vascular disease prohibiting transfemoral access. The procedure was performed using a 23 mm Zarate MAYRA 3 ultra balloon expandable valve. Following the procedure she continued to be on aspirin and was started on Plavix therapy for at 1 month. Following review of her subsequent labs, I reduced spironolactone to 12.5 mg daily and digoxin to every other day. She was admitted to [facility] in August 2024 with severe gastroenteritis, severe hypokalemia significant leukocytosis with mild elevation of troponin. She was managed accordingly. She has recovered from that illness. Today she reports that she still has shortness of breath on exertion NYHA class II-III symptoms. No significant lower extremity edema. She continues to be on oxygen by nasal prongs. Review of Systems Constitutional: Positive for malaise/fatigue. Cardiovascular: Positive for dyspnea on exertion and palpitations. Respiratory: Positive for shortness of breath. Hematologic/Lymphatic: Bruises/bleeds easily. Musculoskeletal: Positive for arthritis, back pain, falls and muscle weakness. Neurological: Positive for focal weakness, light-headedness, loss of balance and weakness. All other systems reviewed and are negative. Objective Visit Vitals BP 124/72 (BP Location: Right arm, Patient Position: Sitting) Pulse 66 Ht 1.575 m (5' 2 ) Wt 60.3 kg (133 lb) SpO2 94% Comment: on 2L O2 BMI 24.33 kg/m??? OB Status Postmenopausal Smoking Status Former BSA 1.62 m??? Physical Exam Constitutional: Appearance: She is well-developed. She is ill-appearing. Comments: On oxygen by nasal prongs HENT: Head: Normocephalic and atraumatic. Nose: Nose normal. Eyes: General: No scleral icterus. Pupils: Pupils are equal, round, and reactive to light. Neck: Thyroid: No thyromegaly. Vascular: No JVD. Cardiovascular: Rate and Rhythm: Normal rate and regular rhythm. Pulses: Radial pulses are 2+ on the right side and 2+ on the left side. Heart sounds: Murmur heard. Systolic (RUSB) murmur is present with a grade of 3/6. No friction rub. No gallop. Pulmonary: Effort: Pulmonary effort is normal. No respiratory distress. Breath sounds: Normal breath sounds. No wheezing or rales. Chest: Chest wall: No tenderness. Abdominal: General: Bowel sounds are normal. There is no distension. Palpations: Abdomen is soft. Tenderness: There is no abdominal tenderness. Musculoskeletal: General: No swelling. Cervical back: Neck supple. Right lower leg: No edema. Left lower leg: No edema. Comments: In wheelchair Skin: General: Skin is warm and dry. Neurological: General: No focal deficit present. Mental Status: She is alert and oriented to person, place, and time. Psychiatric: Mood and Affect: Mood normal. Behavior: Behavior is cooperative. Judgment: Judgment normal. Allergies Allergies Allergen Reactions Codeine GI intolerance Entresto [Sacubitril-Valsartan] Other Penicillins Rash Medications Current Outpatient Medications: ALPRAZolam (Niravam) 0.25 mg disintegrating tablet, Take 0.25 mg by mouth if needed in the morning, at noon, and at bedtime for anxiety., Disp: , Rfl: aspirin 81 mg EC [...] by mouth with breakfast and with evening meal., Disp: 60 tablet, Rfl: 0 colchicine 0.6 mg tablet, Take 0.6 mg by mouth if needed., Disp: , Rfl: dapagliflozin propanediol (Farxiga) 10 mg, Take 1 tablet (10 mg) by mouth in the morning., Disp: 30 tablet, Rfl: 11 digoxin (Lanoxin) 125 MCG tablet, Take 125 mcg by mouth every other day., Disp: , Rfl: escitalopram (Lexapro) 10 mg tablet, Take 1 tablet by mouth in the morning., Disp: , Rfl: gabapentin (Neurontin) 100 mg capsule, take 1 capsule by mouth three times a day, Disp: , Rfl: insulin lispro protamin-lispro (HumaLOG Mix 75-25) 100 unit/mL (75-25) injection, Inject 8 Units under the skin with breakfast and with evening meal. Take 8 units in morning and 8 units in evening., Disp: , Rfl: omeprazole (PriLOSEC) [address] capsule, Take 1 capsule by mouth in the morning., Disp: , Rfl: rOPINIRole (Requip) 0.25 mg tablet, TAKE 1 TABLET BY MOUTH ONE TO THREE HOURS BEFORE BEDTIME, Disp: , Rfl: spironolactone (Aldactone) 25 mg tablet, Take 12.5 mg by mouth in the morning., Disp: , Rfl: torsemide (Demadex) 20 mg tablet, Take 3 tablets (60 mg) by mouth once daily in the morning., Disp: 270 tablet, Rfl: 3 azithromycin (Zithromax) 500 mg tablet, Take 1 tablet (500 mg) by mouth 1 (one) time if needed (30 - 60 minutes prior to dental procedure.) for up to 40 doses., Disp: 10 tablet, Rfl: 3 Recent Labs Admission on 06/10/2024, Discharged on 06/11/2024 Component Date Value Ventricular Rate 06/10/2024 64 QRS DURATION 06/10/2024 102 QT Interval 06/10/2024 424 QTC CALCULATION(BAZETT) 06/10/2024 437 R-Milford 06/10/2024 -14 T Wave [place] 06/10/2024 143 ABO Grouping 06/10/2024 A Rh Type 06/10/2024 NEG Ab Scrn 06/10/2024 NEG Ventricular Rate 06/10/2024 69 QRS DURATION 06/10/2024 130 QT Interval 06/10/2024 436 QTC CALCULATION(BAZETT) 06/10/2024 467 R-Milford 06/10/2024 -16 T Wave [place] 06/10/2024 155 Sodium 06/10/2024 136 Potassium 06/10/2024 3.9 Chloride 06/10/2024 103 CO2 06/10/2024 26 BUN 06/10/2024 41 (H) Creatinine 06/10/2024 1.68 (H) Glucose 06/10/2024 107 (H) Calcium 06/10/2024 8.5 (L) Anion Gap 06/10/2024 11 eGFR 06/10/2024 29.6 (L) BUN/Creatinine Ratio 06/10/2024 24.4 Glucose POC 06/10/2024 124 (H) Glucose POC 06/10/2024 170 (H) Auto WBC 06/11/2024 8.78 RBC 06/11/2024 3.21 (L) Hemoglobin 06/11/2024 9.3 (L) Hematocrit 06/11/2024 30.8 (L) MCV 06/11/2024 96.0 MCH 06/11/2024 29.0 MCHC 06/11/2024 30.2 (L) RDW 06/11/2024 14.9 Platelets 06/11/2024 221 Sodium 06/11/2024 136 Potassium 06/11/2024 3.7 Chloride 06/11/2024 104 CO2 06/11/2024 24 BUN 06/11/2024 38 (H) Creatinine 06/11/2024 1.68 (H) Glucose 06/11/2024 119 (H) Calcium 06/11/2024 8.5 (L) Anion Gap 06/11/2024 12 eGFR 06/11/2024 29.6 (L) BUN/Creatinine Ratio 06/11/2024 22.6 Magnesium 06/11/2024 2.3 POCT ACT 06/10/2024 237 (A) QC Pass/Fail 06/10/2024 Passed QC LOT # 06/10/2024 8 QC Expiration Date 06/10/2024 73,125 POCT ACT 06/10/2024 316 (A) QC Pass/Fail 06/10/2024 Passed QC LOT # 06/10/2024 8 QC Expiration Date 06/10/2024 73,125 POCT ACT 06/10/2024 299 (A) QC Pass/Fail 06/10/2024 Passed QC LOT # 06/10/2024 8 QC Expiration Date 06/10/2024 73,125 POCT ACT 06/10/2024 243 (A) QC Pass/Fail 06/10/2024 Passed QC LOT # 06/10/2024 8 QC Expiration Date 06/10/2024 73,125 POCT ACT 06/10/2024 161 (A) QC Pass/Fail 06/10/2024 Passed QC LOT # 06/10/2024 8 QC Expiration Date 06/10/2024 73,125 Ventricular Rate 06/11/2024 64 QRS DURATION 06/11/2024 106 QT Interval 06/11/2024 434 QTC CALCULATION(BAZETT) 06/11/2024 447 R-Milford 06/11/2024 -19 T Wave [place] 06/11/2024 148 Glucose POC 06/11/2024 121 (H) Hospital Outpatient Visit on 05/27/2024 Component Date Value Ventricular Rate 05/27/2024 67 QRS DURATION 05/27/2024 104 QT Interval 05/27/2024 396 QTC CALCULATION(BAZETT) 05/27/2024 418 R-Milford 05/27/2024 -10 T Wave [place] 05/27/2024 150 AHGARJ03% 05/27/2024 45.0 (A) QC Pass/Fail 05/27/2024 Passed QC LOT # 05/27/2024 448,740 QC Expiration Date 05/27/2024 113,025 SAMPLESITE 05/27/2024 not listed Blood testing 09/11/2024: Potassium 4.0, BUN 38, creatinine 1.6, EGFR 31. Blood testing 07/22/2024: Potassium 4.1, BUN 26, creatinine 1.64, EGFR 30, digoxin 1.2. Blood testing 06/23/2024: Potassium 4.7, BUN 42, creatinine 2.05, EGFR 23. Digoxin 1.7. Hemoglobin 11.3. Blood testing 01/03/2024: Potassium 3.5, BUN 42, creatinine 1.85, EGFR 26. Blood testing 11/18/2023: Hemoglobin 9.5, Platelets 214, potassium 3.4, BUN 47, creatinine 1.54, EGFR 32. Blood testing 11/17/2023: high-sensitivity troponin 26.8, NT proBNP 707,627. Blood testing 12/06/2022: Potassium 4.0, BUN 42, creatinine 1.69, digoxin less than 0.2, TSH 2.427. Blood testing 06/02/2024: digoxin 1.3, K 4.3, BUN 34, Cr 1.99, Hb 11.6, platelets 311. 11/15/2022 Hgb 9.8, plt 186 Cr 2.65, BUN 66, K 3.7, Na 140, eGFR 17, ALT 14, AST 14 NTproBNP 6134 11/13/2022 -Cr 3.12, BUN 59, K 5.3, Na 143, eGFR 14 NTproBNP 52871 TSH 5.233 05/02/22 Dig 0.7 CBC normal Renal function slightly elevated CR 1.4-1.5 Liver function normal K+ normal A1C 7.0 Imaging and other tests ECG 08/14/2024: Atrial fibrillation with rapid ventricular response, marked ST depression possible subendocardial injury or digitalis effect. Echocardiogram 07/11/2024: Left Ventricle: Global left ventricular systolic function is normal. EF range is estimated at 65 % -70 %. The septum is abnormal, consistent with RV volume and/or pressure overload. Right Ventricle: The right ventricle is mildly enlarged. Normal right ventricular systolic function. Doppler studies suggest severely elevated right sided pressures. Left Atrium: The left atrium is severely enlarged. Right Atrium: The right atrium is severely enlarged. Mitral Valve: Mild to moderate mitral regurgitation. Aortic Valve: Bioprosthetic valve appears well seated in the aortic position with abnormally high Doppler flows. No aortic valve regurgitation. There is no significant perivalvular regurgitation. Tricuspid Valve: Severe tricuspid regurgitation. RVSP 66 mmHg. ECG 06/11/2024: Atrial fibrillation Moderate voltage criteria for LVH, may be normal variant (R in aVL, [place] product) Marked ST abnormality, possible lateral subendocardial injury Abnormal ECG Echocardiogram 06/11/2024: Left Ventricle: The left ventricle is normal size. Global left ventricular systolic function is normal. The EF is 55 % visually. Left ventricular wall thickness is increased. Right Ventricle: The right ventricle appears normal in size. Right ventricular systolic function appears normal. Doppler studies suggest moderately elevated right sided pressures (elevated pulmonary pressure). Left Atrium: The left atrium appears enlarged. Mitral Valve: Mild mitral regurgitation. Aortic Valve: 23mm Zarate Mayra 3 Ultra TAVR is well positioned in the aortic area with a mean gradient of 16mmHg and trivial insufficiency. Tricuspid Valve: Moderate tricuspid regurgitation. TAVR 06/10/2024: Successful [id number] transcatheter aortic valve replacement using a 23 mm Zarate Mayra 3 Ultra valve deployed at nominal volume via percutaneous transaxillary access. ECG 05/27/2024: Atrial fibrillation Left ventricular hypertrophy with repolarization abnormality (R in aVL, [place] product) Abnormal ECG Cardiac catheterization 05/27/2024: Impression/Findings: Minimal coronary artery disease. Moderate elevation of left filling pressures. Moderate elevation of right filling pressures. Severe pulmonary hypertension. Severely reduced cardiac output and cardiac index. Uncontrolled systemic hypertension. 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 Plan: Medical therapy for coronary artery disease. The patient should proceed with the evaluation for aortic valve replacement. At her advanced age, prior open heart surgery, presence of severe pulmonary hypertension and frailty I think that she would best be served by TAVR. Consult Cardiothoracic Surgery team. Follow up in Cardiology Clinic. Transesophageal echocardiogram 05/27/2024: Left Ventricle: The left ventricle is normal size. Global left ventricular systolic function is normal. The EF is 55 % visually. Left ventricular wall thickness is moderately increased. No regional wall motion abnormality. Right Ventricle: The right ventricle appears enlarged. Right ventricular systolic function appears reduced. Doppler studies suggest severely elevated right sided pressures. Left Atrium: The left atrium is severely enlarged. IAS: No intracardiac shunt by Doppler color flow. Right Atrium: The right atrium is severely enlarged. Mitral Valve: Trvial to mild mitral regurgitation. Mild mitral valve stenosis. Mitral Valve Measurements MV PGmean: 4.45 mmHg. Aortic Valve: A 23 mm Trifecta bioprosthetic aortic valve is seen in the aortic position with abnormaly high Doppler flows. There is mild aortic prosthesis regurgitation. There is severe, calcfiic prosthesis stenosis. Aortic Valve Measurements AV VTI: 91.20 cm. FELICITA 2D: 0.8 cm???. AV PGmax: 64.64 mmHg. AV PGmean: 37.00 mmHg. AV Vmax, Caliper: 4.02 m/s. Tricuspid Valve: Severe tricuspid regurgitation. Tricuspid Valve Measurements RVSP: 76 mmHg. TR Vmax: 4.13 m/s. Aorta: Mild to moderate atherosclerotic plaque is seen in the aorta. Echocardiogram 05/07/2024: LVEF 50-55% Moderate LVH Evidence of fluid overload Severe tricuspid regurg Severe pulm HTN, RVSP 85 Mild mitral valve stenosis Mild mitral regurg Severe stenosis of bioprosthetic aortic valve, mild aortic regurg Echocardiogram 10/23/2023: The left ventricle is normal in size and exhibits low normal systolic function. Estimated LVEF is 50 to 55%. The right ventricle is severely dilated and exhibits normal systolic function. Severe biatrial dilatation. 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 Mild aortic regurgitation is seen. Mild to moderate mitral stenosis with mild regurgitation. Severe tricuspid regurgitation. Severely elevated right-sided pressures. Depending on the clinical picture a transesophageal echocardiogram is recommended for further assessment of the valvular lesions. RVSP is 77 mmHg. FARA 12/22/2022: Left Ventricle: The left ventricle is normal size. Global left ventricular systolic function is normal. The EF is 55 % visually. Right Ventricle: There are elevated right sided pressures. The right ventricle is mildly enlarged. Right ventricular systolic function appears normal. Left Atrium: The left atrial appendage has been surgically ligated. The left atrium is severely enlarged. Right Atrium: The right atrium is severely enlarged. Mitral Valve: Mild mitral regurgitation. Moderate mitral valve stenosis. Mitral Valve Measurements MV Vmax: 2.12 m/s. MV PGmean: 7.00 mmHg. Aortic Valve: A 23 mm Trifecta bioprosthetic valve is seen in the aortic position. The prosthetic aortic valve exhibits moderately calcified cusps. Moderate prosthesis stenosis. Aortic Valve Measurements AV PGmean: 17.00 mmHg. AV DVI: 0.22. Tricuspid Valve: Moderate to severe tricuspid regurgitation. Tricuspid Valve Measurements RVSP: 68 mmHg. TR Vmax: 4.04 m/s. ECHO (11/14/2022) LVEF 35-40%. D-shaped septum consistent with RV pressure and/or volume overload Severe biatrial enlargement RV is enlarged with reduced systolic function Significant mitral annular and valvular calcification Bioprosthetic aortic valve is seen with significant calcification and restricted leaflet mobitily 12/20/21 FARA- Left Ventricle: The left ventricle is normal size. Global left ventricular systolic function is normal. The EF is 55 % visually. No regional wall motion abnormality. Right Ventricle: The right ventricle is normal in size. Normal right ventricular systolic function. Doppler studies suggest mildly elevated right sided pressures. Left Atrium: An ZEN stump is present (patient had prior surgical closure). No clot is appreciable in multiple views. The left atrium is severely enlarged. Right Atrium: The right atrium is severely enlarged. Mitral Valve: Mild mitral regurgitation. Mild mitral valve stenosis. Aortic Valve: A bioprosthetic valve is seen in the aortic position with abnormaly high Doppler flows. Tricuspid Valve: Moderate tricuspid regurgitation. Aorta: The aortic root exhibits mild dilatation. The ascending aorta measures 3.60 cm. Right heart catheterization 12/20/2021: RA 10, PA 58/17 mean 34, pulmonary wedge pressure 18 with V waves up to 29, cardiac output 4.12, cardiac index 2.18. Normal coronary angiogram in 2016. Echocardiogram 04/19/2016: Mildly reduced LV EF (45-50%), severe aortic stenosis, moderate aortic, mitral and tricuspid regurgitation, moderate pulmonary hypertension. (mean gradient across the valve is 34 mmHg). Echocardiogram 12/25/2013: LV EF 50%, moderate aortic stenosis and regurgitation. Echocardiogram 11/20/2011: Normal global left ventricular systolic function with moderate left ventricular hypertrophy. Mild biatrial enlargement. Moderate aortic stenosis with mild to moderate aortic regurgitation. Mildly elevated right-sided pressures. Mild tricuspid and mitral regurgitation Cardiac cath in 2010: mild CAD, mildly reduced LV systolic function, mild aortic stenosis, mild mitral regurgitation, elevated LVEDP. Carotid ultrasound 2010: moderate right carotid stenosis. Assessment/Plan Diagnoses and all orders for this visit: S/P TAVR (transcatheter aortic valve replacement) - Transthoracic echo (TTE) complete; Future S/P aortic valve replacement with bioprosthetic valve Chronic diastolic heart failure (CMS/HCC) - Transthoracic echo (TTE) complete; Future Permanent atrial fibrillation (CMS/HCC) Nonrheumatic mitral (valve) stenosis Pulmonary hypertension (CMS/HCC) - Transthoracic echo (TTE) complete; Future Status post ligation of left atrial appendage Nonrheumatic tricuspid valve regurgitation Stage 3a chronic kidney disease (CMS/HCC) She is doing relatively well after the TAVR procedure. She is still limited with some shortness of breath due to her lung disease and continues to be on oxygen therapy. Her blood pressure and heart rate are well-controlled. I will continue same treatment. She has azithromycin for endocarditis prophylaxis prior to dental procedures. Her 1 month post TAVR echocardiogram on 07/11/2024 showed mildly elevated velocities across the TAVR prosthesis which is expected for a valve in valve 23 mm MAYRA prosthesis. There was evidence of elevated right-sided pressures with an RVSP of 66 mmHg and severe tricuspid regurgitation. She has responded with increased diuretic therapy. Currently on torsemide 60 mg daily. She has no evidence of volume overload currently. I reviewed her blood testing from 09/11/2024 and it shows renal function at baseline and potassium normal. I will continue the same. Continue Jardiance and spironolactone. She has stopped Plavix after 1 month post TAVR procedure as instructed. She continues to be on aspirin 81 mg daily. She was discovered during the admission of August [address] scan to have an enlarging pleural-based mass. She will be seeing Dr. Tan from pulmonary for that. I will see her in follow-up in 6-month. Follow up in about 6 months (around 03/25/2025). Josefina Nova MD BASIC METABOLIC PANEL Collected: 2024 11:25 AM Status: F Source: [facility] Order Comment: FASTING:NO FASTING: NO TYPE CODE TESTS RESULT OUT OF RANGE REFERENCE UNITS LAB [id number] GLUCOSE 141 High 65-139 mg/dL Result Comment: Non-fasting reference interval For someone without known diabetes, a glucose value >125 mg/dL indicates that they may have diabetes and this should be confirmed with a follow-up test. LAB [id number] UREA NITROGEN (BUN) 30 High 7-25 mg/dL LAB [id number] CREATININE 1.60 High 0.60-0.95 mg/dL LAB [id number] EGFR 31 Low > OR = 60 mL/min/1 .73m2 LAB [id number] BUN/CREATININE RATIO 19 Normal 6-22 (calc) LAB [id number] SODIUM 137 Normal 135-146 mmol/L LAB [id number] POTASSIUM 4.2 Normal 3.5-5.3 mmol/L LAB [id number] CHLORIDE 89 Low 98-110 mmol/L LAB [id number] CARBON DIOXIDE 38 High 20-32 mmol/L LAB [id number] CALCIUM 9.2 Normal 8.6-10.4 mg/dL Performed By: #### [id number], 10 165 #### [employer] [address], [address] [place] [id number] Hydrology Teacher: Boone Calderón MD B TYPE NATRIURETIC PEPTIDE (BNP) Collected: 08/25/2024 11:25 AM Status: F Source: [facility] TYPE CODE TESTS RESULT OUT OF RANGE REFERENCE UNITS LAB [id number] B TYPE NATRIURETIC PEPTIDE (BNP) 347 High <100 pg/mL Result Comment: BNP levels increase with age in the general population with the highest values seen in individuals greater than 75 years of age. Reference: J. Am. Priya. Cardiol. 2002; 40:976-982. Performed By: #### [id number], 10 165 #### [employer] [address], [address] [place] [id number] Hydrology Teacher: Boone Calderón MD FOLLOW-UP Observed: 07/25/2024 11:15 AM Status: COMPLETED Source: [facility] [id number] Jenni Quinones [birth year] F Date Provider Department Center 07/25/2024 Rocky-JOSEFINA NOVA SYMONE Veliz [facility] Family History Problem Relation Age of Onset Diabetes Father Heart failure Father Other Other Family Status - Relation Status Age at Father Other Level of Service:29205 [place] OFFICE/OUTPATIENT ESTABLISHED MOD MDM 30 MIN PROGRESS Observed: 07/25/2024 11:15 AM Status: COMPLETED Source: [facility] Cardiology - [facility] Subjective Jennisachin Quinones is a 84 y.o. year old [...] SOB is worsening. She does not see box toe cementer. 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 Eventually she underwent valve in valve TAVR on 06/20/2024 via percutaneous transaxillary access due to her severe peripheral vascular disease prohibiting transfemoral access. The procedure was performed using a 23 mm Zarate MAYRA 3 ultra balloon expandable valve. Following the procedure she continued to be on aspirin and was started on Plavix therapy for at 1 month. Following review of her subsequent labs, I reduced spironolactone to 12.5 mg daily and digoxin to every other day. Today she reports that she still has shortness of breath on exertion NYHA class II-III symptoms. No significant lower extremity edema. She feels generally weak. She continues to be on oxygen by nasal prongs. Review of Systems Constitutional: Positive for malaise/fatigue. Cardiovascular: Positive for dyspnea on exertion and palpitations. Respiratory: Positive for shortness of breath. Hematologic/Lymphatic: Bruises/bleeds easily. Musculoskeletal: Positive for arthritis, back pain, falls and muscle weakness. Neurological: Positive for excessive daytime sleepiness, focal weakness, loss of balance and weakness. All other systems reviewed and are negative. Objective Visit Vitals BP 120/74 (BP Location: Right arm, Patient Position: Sitting) Pulse 94 Ht 1.575 m (5' 2 ) Wt 62.6 kg (138 lb) SpO2 96% Comment: on 2L O2 BMI 25.24 kg/m??? OB Status Postmenopausal Smoking Status Former BSA 1.65 m??? Physical Exam Constitutional: Appearance: She is well-developed. She is ill-appearing. Comments: On oxygen by nasal prongs HENT: Head: Normocephalic and atraumatic. Nose: Nose [...] murmur is present with a grade of 3/6. No friction rub. No gallop. Pulmonary: Effort: Pulmonary effort is normal. No respiratory distress. Breath sounds: Normal breath sounds. No wheezing or rales. Chest: Chest wall: No tenderness. Abdominal: General: Bowel sounds are normal. There is no distension. Palpations: Abdomen is soft. Tenderness: There is no abdominal tenderness. Musculoskeletal: General: No swelling. Cervical back: Neck supple. Right lower le+ Pitting Edema present. Left lower le+ Pitting Edema present. Comments: In wheelchair Skin: General: Skin is warm and dry. Neurological: General: No focal deficit present. Mental Status: She is alert and oriented to person, place, and time. Psychiatric: Mood and Affect: Mood normal. Behavior: Behavior is cooperative. Judgment: Judgment normal. Allergies Allergies Allergen Reactions Codeine GI intolerance Entresto [Sacubitril-Valsartan] Other Penicillins Rash Medications Current Outpatient Medications: ALPRAZolam (Niravam) 0.25 mg disintegrating tablet, Take 0.25 mg by mouth if needed in the morning, at noon, and at bedtime for anxiety., Disp: , Rfl: aspirin 81 mg EC [...] by mouth with breakfast and with evening meal., Disp: 60 tablet, Rfl: 0 colchicine 0.6 mg tablet, Take 0.6 mg by mouth if needed., Disp: , Rfl: digoxin (Lanoxin) 125 MCG tablet, Take 125 mcg by mouth every other day., Disp: , Rfl: escitalopram (Lexapro) 10 mg tablet, Take 1 tablet by mouth in the morning., Disp: , Rfl: gabapentin (Neurontin) 100 mg capsule, take 1 capsule by mouth three times a day, Disp: , Rfl: insulin lispro protamin-lispro (HumaLOG Mix 75-25) 100 unit/mL (75-25) injection, Inject 8 Units under the skin with breakfast and with evening meal. Take 8 units in morning and 8 units in evening., Disp: , Rfl: omeprazole (PriLOSEC) [address] capsule, Take 1 capsule by mouth in the morning., Disp: , Rfl: rOPINIRole (Requip) 0.25 mg tablet, TAKE 1 TABLET BY MOUTH ONE TO THREE HOURS BEFORE BEDTIME, Disp: , Rfl: spironolactone (Aldactone) 25 mg tablet, Take 12.5 mg by mouth in the morning., Disp: , Rfl: azithromycin (Zithromax) 500 mg tablet, Take 1 tablet (500 mg) by mouth 1 (one) time if needed (30 - 60 minutes prior to dental procedure.) for up to 40 doses., Disp: 10 tablet, Rfl: 3 dapagliflozin propanediol (Farxiga) 10 mg, Take 1 tablet (10 mg) by mouth in the morning., Disp: 30 tablet, Rfl: 11 torsemide (Demadex) 20 mg tablet, Take 3 tablets (60 mg) by mouth once daily in the morning., Disp: 270 tablet, Rfl: 3 Recent Labs Admission on 06/10/2024, Discharged on 06/11/2024 Component Date Value Ventricular Rate 06/10/2024 64 QRS DURATION 06/10/2024 102 QT Interval 06/10/2024 424 QTC CALCULATION(BAZETT) 06/10/2024 437 R-Milford 06/10/2024 -14 T Wave [place] 06/10/2024 143 ABO Grouping 06/10/2024 A Rh Type 06/10/2024 NEG Ab Scrn 06/10/2024 NEG Ventricular Rate 06/10/2024 69 QRS DURATION 06/10/2024 130 QT Interval 06/10/2024 436 QTC CALCULATION(BAZETT) 06/10/2024 467 R-Milford 06/10/2024 -16 T Wave [place] 06/10/2024 155 Sodium 06/10/2024 136 Potassium 06/10/2024 3.9 Chloride 06/10/2024 103 CO2 06/10/2024 26 BUN 06/10/2024 41 (H) Creatinine 06/10/2024 1.68 (H) Glucose 06/10/2024 107 (H) Calcium 06/10/2024 8.5 (L) Anion Gap 06/10/2024 11 eGFR 06/10/2024 29.6 (L) BUN/Creatinine Ratio 06/10/2024 24.4 Glucose POC 06/10/2024 124 (H) Glucose POC 06/10/2024 170 (H) Auto WBC 06/11/2024 8.78 RBC 06/11/2024 3.21 (L) Hemoglobin 06/11/2024 9.3 (L) Hematocrit 06/11/2024 30.8 (L) MCV 06/11/2024 96.0 MCH 06/11/2024 29.0 MCHC 06/11/2024 30.2 (L) RDW 06/11/2024 14.9 Platelets 06/11/2024 221 Sodium 06/11/2024 136 Potassium 06/11/2024 3.7 Chloride 06/11/2024 104 CO2 06/11/2024 24 BUN 06/11/2024 38 (H) Creatinine 06/11/2024 1.68 (H) Glucose 06/11/2024 119 (H) Calcium 06/11/2024 8.5 (L) Anion Gap 06/11/2024 12 eGFR 06/11/2024 29.6 (L) BUN/Creatinine Ratio 06/11/2024 22.6 Magnesium 06/11/2024 2.3 POCT ACT 06/10/2024 237 (A) QC Pass/Fail 06/10/2024 Passed QC LOT # 06/10/2024 8 QC Expiration Date 06/10/2024 73,125 POCT ACT 06/10/2024 316 (A) QC Pass/Fail 06/10/2024 Passed QC LOT # 06/10/2024 8 QC Expiration Date 06/10/2024 73,125 POCT ACT 06/10/2024 299 (A) QC Pass/Fail 06/10/2024 Passed QC LOT # 06/10/2024 8 QC Expiration Date 06/10/2024 73,125 POCT ACT 06/10/2024 243 (A) QC Pass/Fail 06/10/2024 Passed QC LOT # 06/10/2024 8 QC Expiration Date 06/10/2024 73,125 POCT ACT 06/10/2024 161 (A) QC Pass/Fail 06/10/2024 Passed QC LOT # 06/10/2024 8 QC Expiration Date 06/10/2024 73,125 Ventricular Rate 06/11/2024 64 QRS DURATION 06/11/2024 106 QT Interval 06/11/2024 434 QTC CALCULATION(BAZETT) 06/11/2024 447 R-Milford 06/11/2024 -19 T Wave [place] 06/11/2024 148 Glucose POC 06/11/2024 121 (H) Hospital Outpatient Visit on 05/27/2024 Component Date Value Ventricular Rate 05/27/2024 67 QRS DURATION 05/27/2024 104 QT Interval 05/27/2024 396 QTC CALCULATION(BAZETT) 05/27/2024 418 R-Milford 05/27/2024 - T Wave [place] 05/27/2024 150 [id number]% 05/27/2024 45.0 (A) QC Pass/Fail 05/27/2024 Passed QC LOT # 05/27/2024 448,740 QC Expiration Date 05/27/2024 113,025 SAMPLESITE 05/27/2024 not listed Blood testing 07/22/2024: Potassium 4.1, BUN 26, creatinine 1.64, EGFR 30, digoxin 1.2. Blood testing 06/23/2024: Potassium 4.7, BUN 42, creatinine 2.05, EGFR 23. Digoxin 1.7. Hemoglobin 11.3. Blood testing 01/03/2024: Potassium 3.5, BUN 42, creatinine 1.85, EGFR 26. Blood testing 11/18/2023: Hemoglobin 9.5, Platelets 214, potassium 3.4, BUN 47, creatinine 1.54, EGFR 32. Blood testing 11/17/2023: high-sensitivity troponin 26.8, NT proBNP 707,627. Blood testing 12/06/2022: Potassium 4.0, BUN 42, creatinine 1.69, digoxin less than 0.2, TSH 2.427. Blood testing 06/02/2024: digoxin 1.3, K 4.3, BUN 34, Cr 1.99, Hb 11.6, platelets 311. 11/15/2022 Hgb 9.8, plt 186 Cr 2.65, BUN 66, K 3.7, Na 140, eGFR 17, ALT 14, AST 14 NTproBNP 6134 11/13/2022 -Cr 3.12, BUN 59, K 5.3, Na 143, eGFR 14 NTproBNP 35370 TSH 5.233 05/02/22 Dig 0.7 CBC normal Renal function slightly elevated CR 1.4-1.5 Liver function normal K+ normal A1C 7.0 Imaging and other tests Echocardiogram 07/11/2024: Left Ventricle: Global left ventricular systolic function is normal. EF range is estimated at 65 % -70 %. The septum is abnormal, consistent with RV volume and/or pressure overload. Right Ventricle: The right ventricle is mildly enlarged. Normal right ventricular systolic function. Doppler studies suggest severely elevated right sided pressures. Left Atrium: The left atrium is severely enlarged. Right Atrium: The right atrium is severely enlarged. Mitral Valve: Mild to moderate mitral regurgitation. Aortic Valve: Bioprosthetic valve appears well seated in the aortic position with abnormally high Doppler flows. No aortic valve regurgitation. There is no significant perivalvular regurgitation. Tricuspid Valve: Severe tricuspid regurgitation. RVSP 66 mmHg. ECG 06/11/2024: Atrial fibrillation Moderate voltage criteria for LVH, may be normal variant (R in aVL, Rito product) Marked ST abnormality, possible lateral subendocardial injury Abnormal ECG Echocardiogram 06/11/2024: Left Ventricle: The left ventricle is normal size. Global left ventricular systolic function is normal. The EF is 55 % visually. Left ventricular wall thickness is increased. Right Ventricle: The right ventricle appears normal in size. Right ventricular systolic function appears normal. Doppler studies suggest moderately elevated right sided pressures (elevated pulmonary pressure). Left Atrium: The left atrium appears enlarged. Mitral Valve: Mild mitral regurgitation. Aortic Valve: 23mm Zarate Mayra 3 Ultra TAVR is well positioned in the aortic area with a mean gradient of 16mmHg and trivial insufficiency. Tricuspid Valve: Moderate tricuspid regurgitation. TAVR 06/10/2024: Successful [id number]-[id number] transcatheter aortic valve replacement using a 23 mm Zarate Mayra 3 Ultra valve deployed at nominal volume via percutaneous transaxillary access. ECG 05/27/2024: Atrial fibrillation Left ventricular hypertrophy with repolarization abnormality (R in aVL, Rito product) Abnormal ECG Cardiac catheterization 05/27/2024: Impression/Findings: Minimal coronary artery disease. Moderate elevation of left filling pressures. Moderate elevation of right filling pressures. Severe pulmonary hypertension. Severely reduced cardiac output and cardiac index. Uncontrolled systemic hypertension. 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 Plan: Medical therapy for coronary artery disease. The patient should proceed with the evaluation for aortic valve replacement. At her advanced age, prior open heart surgery, presence of severe pulmonary hypertension and frailty I think that she would best be served by TAVR. Consult Cardiothoracic Surgery team. Follow up in Cardiology Clinic. Transesophageal echocardiogram 05/27/2024: Left Ventricle: The left ventricle is normal size. Global left ventricular systolic function is normal. The EF is 55 % visually. Left ventricular wall thickness is moderately increased. No regional wall motion abnormality. Right Ventricle: The right ventricle appears enlarged. Right ventricular systolic function appears reduced. Doppler studies suggest severely elevated right sided pressures. Left Atrium: The left atrium is severely enlarged. IAS: No intracardiac shunt by Doppler color flow. Right Atrium: The right atrium is severely enlarged. Mitral Valve: Trvial to mild mitral regurgitation. Mild mitral valve stenosis. Mitral Valve Measurements MV PGmean: 4.45 mmHg. Aortic Valve: A 23 mm Trifecta bioprosthetic aortic valve is seen in the aortic position with abnormaly high Doppler flows. There is mild aortic prosthesis regurgitation. There is severe, calcfiic prosthesis stenosis. Aortic Valve Measurements AV VTI: 91.20 cm. FELICITA 2D: 0.8 cm???. AV PGmax: 64.64 mmHg. AV PGmean: 37.00 mmHg. AV Vmax, Caliper: 4.02 m/s. Tricuspid Valve: Severe tricuspid regurgitation. Tricuspid Valve Measurements RVSP: 76 mmHg. TR Vmax: 4.13 m/s. Aorta: Mild to moderate atherosclerotic plaque is seen in the aorta. Echocardiogram 05/07/2024: LVEF 50-55% Moderate LVH Evidence of fluid overload Severe tricuspid regurg Severe pulm HTN, RVSP 85 Mild mitral valve stenosis Mild mitral regurg Severe stenosis of bioprosthetic aortic valve, mild aortic regurg Echocardiogram 10/23/2023: The left ventricle is normal in size and exhibits low normal systolic function. Estimated LVEF is 50 to 55%. The right ventricle is severely dilated and exhibits normal systolic function. Severe biatrial dilatation. 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 Mild aortic regurgitation is seen. Mild to moderate mitral stenosis with mild regurgitation. Severe tricuspid regurgitation. Severely elevated right-sided pressures. Depending on the clinical picture a transesophageal echocardiogram is recommended for further assessment of the valvular lesions. RVSP is 77 mmHg. FARA 12/22/2022: Left Ventricle: The left ventricle is normal size. Global left ventricular systolic function is normal. The EF is 55 % visually. Right Ventricle: There are elevated right sided pressures. The right ventricle is mildly enlarged. Right ventricular systolic function appears normal. Left Atrium: The left atrial appendage has been surgically ligated. The left atrium is severely enlarged. Right Atrium: The right atrium is severely enlarged. Mitral Valve: Mild mitral regurgitation. Moderate mitral valve stenosis. Mitral Valve Measurements MV Vmax: 2.12 m/s. MV PGmean: 7.00 mmHg. Aortic Valve: A 23 mm Trifecta bioprosthetic valve is seen in the aortic position. The prosthetic aortic valve exhibits moderately calcified cusps. Moderate prosthesis stenosis. Aortic Valve Measurements AV PGmean: 17.00 mmHg. AV DVI: 0.22. Tricuspid Valve: Moderate to severe tricuspid regurgitation. Tricuspid Valve Measurements RVSP: 68 mmHg. TR Vmax: 4.04 m/s. ECHO (11/14/2022) LVEF 35-40%. D-shaped septum consistent with RV pressure and/or volume overload Severe biatrial enlargement RV is enlarged with reduced systolic function Significant mitral annular and valvular calcification Bioprosthetic aortic valve is seen with significant calcification and restricted leaflet mobitily 12/20/21 FARA- Left Ventricle: The left ventricle is normal size. Global left ventricular systolic function is normal. The EF is 55 % visually. No regional wall motion abnormality. Right Ventricle: The right ventricle is normal in size. Normal right ventricular systolic function. Doppler studies suggest mildly elevated right sided pressures. Left Atrium: An ZEN stump is present (patient had prior surgical closure). No clot is appreciable in multiple views. The left atrium is severely enlarged. Right Atrium: The right atrium is severely enlarged. Mitral Valve: Mild mitral regurgitation. Mild mitral valve stenosis. Aortic Valve: A bioprosthetic valve is seen in the aortic position with abnormaly high Doppler flows. Tricuspid Valve: Moderate tricuspid regurgitation. Aorta: The aortic root exhibits mild dilatation. The ascending aorta measures 3.60 cm. Right heart catheterization 12/20/2021: RA 10, PA 58/17 mean 34, pulmonary wedge pressure 18 with V waves up to 29, cardiac output 4.12, cardiac index 2.18. Normal coronary angiogram in 2016. Echocardiogram 04/19/2016: Mildly reduced LV EF (45-50%), severe aortic stenosis, moderate aortic, mitral and tricuspid regurgitation, moderate pulmonary hypertension. (mean gradient across the valve is 34 mmHg). Echocardiogram 12/25/2013: LV EF 50%, moderate aortic stenosis and regurgitation. Echocardiogram 11/20/2011: Normal global left ventricular systolic function with moderate left ventricular hypertrophy. Mild biatrial enlargement. Moderate aortic stenosis with mild to moderate aortic regurgitation. Mildly elevated right-sided pressures. Mild tricuspid and mitral regurgitation Cardiac cath in 2009: mild CAD, mildly reduced LV systolic function, mild aortic stenosis, mild mitral regurgitation, elevated LVEDP. Carotid ultrasound 2009: moderate right carotid stenosis. Assessment/Plan Diagnoses and all orders for this visit: S/P TAVR (transcatheter aortic valve replacement) S/P aortic valve replacement with bioprosthetic valve Chronic diastolic heart failure (CMS/HCC) - torsemide (Demadex) 20 mg tablet; Take 3 tablets (60 mg) by mouth once daily in the morning. - dapagliflozin propanediol (Farxiga) 10 mg; Take 1 tablet (10 mg) by mouth in the morning. - Basic metabolic panel; Future Permanent atrial fibrillation (CMS/HCC) Nonrheumatic mitral (valve) stenosis Pulmonary hypertension (CMS/HCC) - torsemide (Demadex) 20 mg tablet; Take 3 tablets (60 mg) by mouth once daily in the morning. Stage 3a chronic kidney disease (CMS/HCC) Status post ligation of left atrial appendage Nonrheumatic tricuspid valve regurgitation - torsemide (Demadex) 20 mg tablet; Take 3 tablets (60 mg) by mouth once daily in the morning. She is doing relatively well after the TAVR procedure. She is still limited with some shortness of breath due to her lung disease and continues to be on oxygen therapy. Her blood pressure and heart rate are well-controlled. I will continue same treatment. She has azithromycin for endocarditis prophylaxis prior to dental procedures. Her 1 month post TAVR echocardiogram on 07/11/2024 showed mildly elevated velocities across the TAVR prosthesis which is expected for a valve in valve 23 mm MAYRA prosthesis. There was evidence of elevated right-sided pressures with an RVSP of 66 mmHg and severe tricuspid regurgitation. At this time I am going to adjust her diuretic therapy and increase torsemide to 80 mg daily for 3 days followed by 60 mg daily maintenance therapy. She has not been able to afford Jardiance and we will change it to Farxiga and provide her with patient assistance program. She has stopped Plavix after 1 month post TAVR procedure as instructed. She continues to be on aspirin 81 mg daily. I will check a BMP in 1 month and see her back in 2 months. Follow up in about 2 months (around 09/22/2024). Josefina Nova MD 36 Observed: 06/30/2024 4:39 PM Status: COMPLETED Source: [facility] Regarding CXR result from : MD Mariaa Fernandes MA There is a rib fracture and possible lung infiltrates. Please ask that Dr León follows up on this. Spoke with patient and informed her I'd be faxed over the CXR to PCP. She will keep her apt with Dr. Nova on 07/25/2024. 36 Observed: 06/25/2024 11:01 AM Status: COMPLETED Source: [facility] Regarding lab results from 1 08/24/2023: MD Mariaa Fernandes MA Please have her change digoxin to every other day and spironolactone to half tablet daily. Obtain a follow-up BMP and digoxin level in 1 month. Patient informed. Lab orders mailed to her home. Awaiting CXR results. OFFICE VISIT Observed: 06/23/2024 1:00 PM Status: COMPLETED Source: [facility] [id number] QuinonesJenni [birth year] F Date Provider Department Center 06/23/2024 JOSEFINA STEIN [facility] Family History Problem Relation Age of Onset Diabetes Father Heart failure Father Other Other Family Status - Relation Status Age at Father Other Level of Service:[address] [place] OFFICE/OUTPATIENT ESTABLISHED MOD MDM 30 MIN PROGRESS Observed: 06/23/2024 1:00 PM Status: COMPLETED Source: [facility] Cardiology - [facility] Subjective Jennijorge alberto Quinones is a 84 y.o. 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 Eventually she underwent valve in valve TAVR on 06/20/2024 via percutaneous transaxillary access due to her severe peripheral vascular disease prohibiting transfemoral access. The procedure was performed using a 23 mm Zarate MAYRA 3 ultra balloon expandable valve. Following the procedure she continued to be on aspirin and was started on Plavix therapy for at least 1 month. Today she reports that after the procedure she has felt better. She still has shortness of breath on exertion NYHA class II symptoms. She also reports that she woke up from sleep a few days ago with chest and jaw pain. No significant lower extremity edema. She feels generally weak and still is recovering. She continues to be on oxygen by nasal prongs. She reports that few days ago she fell and hit the side of her right chest. This still hurts. Review of Systems Constitutional: Positive for malaise/fatigue. Cardiovascular: Positive for chest pain, dyspnea on exertion and palpitations. Respiratory: Positive for shortness of breath. Hematologic/Lymphatic: Bruises/bleeds easily. Musculoskeletal: Positive for arthritis, back pain, falls and muscle weakness. Neurological: Positive for excessive daytime sleepiness, dizziness, focal weakness, light-headedness, loss of balance, numbness and weakness. All other systems reviewed and are negative. Objective Visit Vitals BP 108/68 (BP Location: Left arm, Patient Position: Sitting) Pulse 62 Ht 1.575 m (5' 2 ) SpO2 93% Comment: on 2L O2 BMI 25.24 kg/m??? OB Status Postmenopausal Smoking Status Former BSA 1.65 m??? Physical Exam Constitutional: Appearance: She is well-developed. She is ill-appearing. Comments: On oxygen by nasal prongs HENT: Head: Normocephalic and atraumatic. Nose: Nose [...] or rales. Chest: Chest wall: No tenderness. Comments: Left axillary puncture site is free from hematoma and erythema. The dressing was removed and a Band-Aid applied. Abdominal: General: Bowel sounds are normal. There is no distension. Palpations: Abdomen is soft. Tenderness: There is no abdominal tenderness. Musculoskeletal: General: No swelling. Cervical back: Neck supple. Right lower leg: No edema. Left lower leg: No edema. Comments: In wheelchair Skin: General: Skin is warm and dry. Neurological: General: No focal deficit present. Mental Status: She is alert and oriented to person, place, and time. Psychiatric: Mood and Affect: Mood normal. Behavior: Behavior is cooperative. Judgment: Judgment normal. Allergies Allergies Allergen Reactions Codeine GI intolerance Entresto [Sacubitril-Valsartan] Other Penicillins Rash Medications Current Outpatient Medications: ALPRAZolam (Niravam) 0.25 mg disintegrating tablet, Take 0.25 mg by mouth if needed in the morning, at noon, and at bedtime for anxiety., Disp: , Rfl: aspirin 81 mg EC [...] by mouth with breakfast and with evening meal., Disp: 60 tablet, Rfl: 0 clopidogrel (Plavix) 75 mg tablet, Take 1 tablet (75 mg) by mouth in the morning., Disp: 30 tablet, Rfl: 0 colchicine 0.6 mg tablet, Take 0.6 mg by mouth if needed., Disp: , Rfl: digoxin (Lanoxin) 125 MCG tablet, Take 125 mcg by mouth in the morning., Disp: , Rfl: empagliflozin (Jardiance) 10 mg, Take 1 tablet (10 mg) by mouth in the morning., Disp: 30 tablet, Rfl: 11 escitalopram (Lexapro) 10 mg tablet, Take 1 tablet by mouth in the morning., Disp: , Rfl: gabapentin (Neurontin) 100 mg capsule, take 1 capsule by mouth three times a day, Disp: , Rfl: insulin lispro protamin-lispro (HumaLOG Mix 75-25) 100 unit/mL (75-25) injection, Inject 8 Units under the skin with breakfast and with evening meal. Take 8 units in morning and 8 units in evening., Disp: , Rfl: omeprazole (PriLOSEC) [address] capsule, Take 1 capsule by mouth in the morning., Disp: , Rfl: rOPINIRole (Requip) 0.25 mg tablet, TAKE 1 TABLET BY MOUTH ONE TO THREE HOURS BEFORE BEDTIME, Disp: , Rfl: spironolactone (Aldactone) 25 mg tablet, Take 25 mg by mouth in the morning., Disp: , Rfl: torsemide (Demadex) 20 mg tablet, Take 50 mg by mouth in the morning. Take 2.5 tablets (20 mg tablets), Disp: , Rfl: azithromycin (Zithromax) 500 mg tablet, Take 1 tablet (500 mg) by mouth 1 (one) time if needed (30 - 60 minutes prior to dental procedure.) for up to 40 doses., Disp: 10 tablet, Rfl: 3 Recent Labs Admission on 06/10/2024, Discharged on 06/11/2024 Component Date Value Ventricular Rate 06/10/2024 64 QRS DURATION 06/10/2024 102 QT Interval 06/10/2024 424 QTC CALCULATION(BAZETT) 06/10/2024 437 R-Milford 06/10/2024 -14 T Wave [place] 06/10/2024 143 ABO Grouping 06/10/2024 A Rh Type 06/10/2024 NEG Ab Scrn 06/10/2024 NEG Ventricular Rate 06/10/2024 69 QRS DURATION 06/10/2024 130 QT Interval 06/10/2024 436 QTC CALCULATION(BAZETT) 06/10/2024 467 R-Milford 06/10/2024 -16 T Wave [place] 06/10/2024 155 Sodium 06/10/2024 136 Potassium 06/10/2024 3.9 Chloride 06/10/2024 103 CO2 06/10/2024 26 BUN 06/10/2024 41 (H) Creatinine 06/10/2024 1.68 (H) Glucose 06/10/2024 107 (H) Calcium 06/10/2024 8.5 (L) Anion Gap 06/10/2024 11 eGFR 06/10/2024 29.6 (L) BUN/Creatinine Ratio 06/10/2024 24.4 Glucose POC 06/10/2024 124 (H) Glucose POC 06/10/2024 170 (H) Auto WBC 06/11/2024 8.78 RBC 06/11/2024 3.21 (L) Hemoglobin 06/11/2024 9.3 (L) Hematocrit 06/11/2024 30.8 (L) MCV 06/11/2024 96.0 MCH 06/11/2024 29.0 MCHC 06/11/2024 30.2 (L) RDW 06/11/2024 14.9 Platelets 06/11/2024 221 Sodium 06/11/2024 136 Potassium 06/11/2024 3.7 Chloride 06/11/2024 104 CO2 06/11/2024 24 BUN 06/11/2024 38 (H) Creatinine 06/11/2024 1.68 (H) Glucose 06/11/2024 119 (H) Calcium 06/11/2024 8.5 (L) Anion Gap 06/11/2024 12 eGFR 06/11/2024 29.6 (L) BUN/Creatinine Ratio 06/11/2024 22.6 Magnesium 06/11/2024 2.3 POCT ACT 06/10/2024 237 (A) QC Pass/Fail 06/10/2024 Passed QC LOT # 06/10/2024 8 QC Expiration Date 06/10/2024 73,125 POCT ACT 06/10/2024 316 (A) QC Pass/Fail 06/10/2024 Passed QC LOT # 06/10/2024 8 QC Expiration Date 06/10/2024 73,125 POCT ACT 06/10/2024 299 (A) QC Pass/Fail 06/10/2024 Passed QC LOT # 06/10/2024 8 QC Expiration Date 06/10/2024 73,125 POCT ACT 06/10/2024 243 (A) QC Pass/Fail 06/10/2024 Passed QC LOT # 06/10/2024 8 QC Expiration Date 06/10/2024 73,125 POCT ACT 06/10/2024 161 (A) QC Pass/Fail 06/10/2024 Passed QC LOT # 06/10/2024 8 QC Expiration Date 06/10/2024 73,125 Ventricular Rate 06/11/2024 64 QRS DURATION 06/11/2024 106 QT Interval 06/11/2024 434 QTC CALCULATION(BAZETT) 06/11/2024 447 R-Milford 06/11/2024 -19 T Wave [place] 06/11/2024 148 Glucose POC 06/11/2024 121 (H) Hospital Outpatient Visit on 05/27/2024 Component Date Value Ventricular Rate 05/27/2024 67 QRS DURATION 05/27/2024 104 QT Interval 05/27/2024 396 QTC CALCULATION(BAZETT) 05/27/2024 418 R-Milford 05/27/2024 -10 T Wave [place] 05/27/2024 150 ABUKVS67% 05/27/2024 45.0 (A) QC Pass/Fail 05/27/2024 Passed QC LOT # 05/27/2024 448,740 QC Expiration Date 05/27/2024 113,025 SAMPLESITE 05/27/2024 not listed Blood testing 01/03/2024: Potassium 3.5, BUN 42, creatinine 1.85, EGFR 26. Blood testing 11/18/2023: Hemoglobin 9.5, Platelets 214, potassium 3.4, BUN 47, creatinine 1.54, EGFR 32. Blood testing 11/17/2023: high-sensitivity troponin 26.8, NT proBNP 707,627. Blood testing 12/06/2022: Potassium 4.0, BUN 42, creatinine 1.69, digoxin less than 0.2, TSH 2.427. Blood testing 06/02/2024: digoxin 1.3, K 4.3, BUN 34, Cr 1.99, Hb 11.6, platelets 311. 11/15/2022 Hgb 9.8, plt 186 Cr 2.65, BUN 66, K 3.7, Na 140, eGFR 17, ALT 14, AST 14 NTproBNP 6134 11/13/2022 -Cr 3.12, BUN 59, K 5.3, Na 143, eGFR 14 NTproBNP 16564 TSH 5.233 05/02/22 Dig 0.7 CBC normal Renal function slightly elevated CR 1.4-1.5 Liver function normal K+ normal A1C 7.0 Imaging and other tests ECG 06/11/2024: Atrial fibrillation Moderate voltage criteria for LVH, may be normal variant (R in aVL, Rito product) Marked ST abnormality, possible lateral subendocardial injury Abnormal ECG Echocardiogram 06/11/2024: Left Ventricle: The left ventricle is normal size. Global left ventricular systolic function is normal. The EF is 55 % visually. Left ventricular wall thickness is increased. Right Ventricle: The right ventricle appears normal in size. Right ventricular systolic function appears normal. Doppler studies suggest moderately elevated right sided pressures (elevated pulmonary pressure). Left Atrium: The left atrium appears enlarged. Mitral Valve: Mild mitral regurgitation. Aortic Valve: 23mm Zarate Mayra 3 Ultra TAVR is well positioned in the aortic area with a mean gradient of 16mmHg and trivial insufficiency. Tricuspid Valve: Moderate tricuspid regurgitation. TAVR 06/10/2024: Successful [id number] transcatheter aortic valve replacement using a 23 mm Zarate Mayra 3 Ultra valve deployed at nominal volume via percutaneous transaxillary access. ECG 05/27/2024: Atrial fibrillation Left ventricular hypertrophy with repolarization abnormality (R in aVL, Rito product) Abnormal ECG Cardiac catheterization 05/27/2024: Impression/Findings: Minimal coronary artery disease. Moderate elevation of left filling pressures. Moderate elevation of right filling pressures. Severe pulmonary hypertension. Severely reduced cardiac output and cardiac index. Uncontrolled systemic hypertension. 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 Plan: Medical therapy for coronary artery disease. The patient should proceed with the evaluation for aortic valve replacement. At her advanced age, prior open heart surgery, presence of severe pulmonary hypertension and frailty I think that she would best be served by TAVR. Consult Cardiothoracic Surgery team. Follow up in Cardiology Clinic. Transesophageal echocardiogram 05/27/2024: Left Ventricle: The left ventricle is normal size. Global left ventricular systolic function is normal. The EF is 55 % visually. Left ventricular wall thickness is moderately increased. No regional wall motion abnormality. Right Ventricle: The right ventricle appears enlarged. Right ventricular systolic function appears reduced. Doppler studies suggest severely elevated right sided pressures. Left Atrium: The left atrium is severely enlarged. IAS: No intracardiac shunt by Doppler color flow. Right Atrium: The right atrium is severely enlarged. Mitral Valve: Trvial to mild mitral regurgitation. Mild mitral valve stenosis. Mitral Valve Measurements MV PGmean: 4.45 mmHg. Aortic Valve: A 23 mm Trifecta bioprosthetic aortic valve is seen in the aortic position with abnormaly high Doppler flows. There is mild aortic prosthesis regurgitation. There is severe, calcfiic prosthesis stenosis. Aortic Valve Measurements AV VTI: 91.20 cm. FELICITA 2D: 0.8 cm???. AV PGmax: 64.64 mmHg. AV PGmean: 37.00 mmHg. AV Vmax, Caliper: 4.02 m/s. Tricuspid Valve: Severe tricuspid regurgitation. Tricuspid Valve Measurements RVSP: 76 mmHg. TR Vmax: 4.13 m/s. Aorta: Mild to moderate atherosclerotic plaque is seen in the aorta. Echocardiogram 05/07/2024: LVEF 50-55% Moderate LVH Evidence of fluid overload Severe tricuspid regurg Severe pulm HTN, RVSP 85 Mild mitral valve stenosis Mild mitral regurg Severe stenosis of bioprosthetic aortic valve, mild aortic regurg Echocardiogram 10/23/2023: The left ventricle is normal in size and exhibits low normal systolic function. Estimated LVEF is 50 to 55%. The right ventricle is severely dilated and exhibits normal systolic function. Severe biatrial dilatation. 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 Mild aortic regurgitation is seen. Mild to moderate mitral stenosis with mild regurgitation. Severe tricuspid regurgitation. Severely elevated right-sided pressures. Depending on the clinical picture a transesophageal echocardiogram is recommended for further assessment of the valvular lesions. RVSP is 77 mmHg. FARA 12/22/2022: Left Ventricle: The left ventricle is normal size. Global left ventricular systolic function is normal. The EF is 55 % visually. Right Ventricle: There are elevated right sided pressures. The right ventricle is mildly enlarged. Right ventricular systolic function appears normal. Left Atrium: The left atrial appendage has been surgically ligated. The left atrium is severely enlarged. Right Atrium: The right atrium is severely enlarged. Mitral Valve: Mild mitral regurgitation. Moderate mitral valve stenosis. Mitral Valve Measurements MV Vmax: 2.12 m/s. MV PGmean: 7.00 mmHg. Aortic Valve: A 23 mm Trifecta bioprosthetic valve is seen in the aortic position. The prosthetic aortic valve exhibits moderately calcified cusps. Moderate prosthesis stenosis. Aortic Valve Measurements AV PGmean: 17.00 mmHg. AV DVI: 0.22. Tricuspid Valve: Moderate to severe tricuspid regurgitation. Tricuspid Valve Measurements RVSP: 68 mmHg. TR Vmax: 4.04 m/s. ECHO (11/14/2022) LVEF 35-40%. D-shaped septum consistent with RV pressure and/or volume overload Severe biatrial enlargement RV is enlarged with reduced systolic function Significant mitral annular and valvular calcification Bioprosthetic aortic valve is seen with significant calcification and restricted leaflet mobitily 12/20/21 FARA- Left Ventricle: The left ventricle is normal size. Global left ventricular systolic function is normal. The EF is 55 % visually. No regional wall motion abnormality. Right Ventricle: The right ventricle is normal in size. Normal right ventricular systolic function. Doppler studies suggest mildly elevated right sided pressures. Left Atrium: An ZEN stump is present (patient had prior surgical closure). No clot is appreciable in multiple views. The left atrium is severely enlarged. Right Atrium: The right atrium is severely enlarged. Mitral Valve: Mild mitral regurgitation. Mild mitral valve stenosis. Aortic Valve: A bioprosthetic valve is seen in the aortic position with abnormaly high Doppler flows. Tricuspid Valve: Moderate tricuspid regurgitation. Aorta: The aortic root exhibits mild dilatation. The ascending aorta measures 3.60 cm. Right heart catheterization 12/20/2021: RA 10, PA 58/17 mean 34, pulmonary wedge pressure 18 with V waves up to 29, cardiac output 4.12, cardiac index 2.18. Normal coronary angiogram in 2016. Echocardiogram 04/19/2016: Mildly reduced LV EF (45-50%), severe aortic stenosis, moderate aortic, mitral and tricuspid regurgitation, moderate pulmonary hypertension. (mean gradient across the valve is 34 mmHg). Echocardiogram 12/25/2013: LV EF 50%, moderate aortic stenosis and regurgitation. Echocardiogram 11/20/2011: Normal global left ventricular systolic function with moderate left ventricular hypertrophy. Mild biatrial enlargement. Moderate aortic stenosis with mild to moderate aortic regurgitation. Mildly elevated right-sided pressures. Mild tricuspid and mitral regurgitation Cardiac cath in 2009: mild CAD, mildly reduced LV systolic function, mild aortic stenosis, mild mitral regurgitation, elevated LVEDP. Carotid ultrasound 2009: moderate right carotid stenosis. Assessment/Plan Diagnoses and all orders for this visit: S/P TAVR (transcatheter aortic valve replacement) - Basic metabolic panel; Future - CBC and differential; Future - azithromycin (Zithromax) 500 mg tablet; Take 1 tablet (500 mg) by mouth 1 (one) time if needed (30 - 60 minutes prior to dental procedure.) for up to 40 doses. S/P aortic valve replacement with bioprosthetic valve - azithromycin (Zithromax) 500 mg tablet; Take 1 tablet (500 mg) by mouth 1 (one) time if needed (30 - 60 minutes prior to dental procedure.) for up to 40 doses. Chest trauma, initial encounter - XR chest 2 views; Future Chronic diastolic heart failure (CMS/HCC) - Basic metabolic panel; Future - CBC and differential; Future Permanent atrial fibrillation (CMS/HCC) - Digoxin level; Future Nonrheumatic mitral (valve) stenosis Pulmonary hypertension (CMS/HCC) Stage 3a chronic kidney disease (CMS/HCC) Status post ligation of left atrial appendage She is doing relatively well after the TAVR procedure. She is still limited with some shortness of breath due to her lung disease and continues to be on oxygen therapy. Her blood pressure and heart rate are well-controlled. I will continue same treatment. I am giving her azithromycin for endocarditis prophylaxis prior to dental procedures. She recently had a fall on the right side of her chest and her ribs are hurting. I am going to check a chest x-ray to rule out any rib fracture. I will follow-up on her renal function and hemoglobin with CBC and BMP. I will also check digoxin level. She is currently on aspirin and Plavix dual antiplatelet therapy after valve in valve TAVR. I am going to continue Plavix for a total of 1 month after the procedure and then stop it. She is on continues to be on aspirin 81 mg for life. She will obtain an echocardiogram on 07/11/2023 for the 1 month post TAVR assessment of the valve. I will see her in follow-up on 07/25/2024. Follow up in about 1 month (around 07/25/2024). Josefina Nova MD DS Observed: 06/11/2024 1:30 PM Status: COMPLETED Source: [facility] Attestation with edits by Josefina Nova MD [...] personal documentation from me. Josefina Nova MD Admission Admitted 06/10/2024 for transcatheter aortic valve [...] Your Medications These medications were sent to [id number] - [place], [place] - [address] [place] [address] clopidogrel 75 mg tablet Activity Normal activity [...] She has history of prior admissions to [facility] with AF/RVR and diastolic heart [...] or rales. Chest: Chest wall: No tenderness. Abdominal: General: Bowel sounds are normal. There is no distension. Palpations: Abdomen is soft. Tenderness: There is no abdominal tenderness. Musculoskeletal: General: No swelling. Cervical back: Neck supple. Right lower leg: No edema. Left lower leg: No edema. Skin: General: Skin is warm and dry. Neurological: General: No focal deficit present. Mental Status: She is alert and oriented to person, place, and time. Psychiatric: Mood and Affect: Mood normal. Behavior: Behavior is cooperative. Judgment: Judgment normal. Lab Results Labs Reviewed BASIC METABOLIC PANEL - Abnormal Result Value Sodium 136 Potassium 3.9 Chloride 103 CO2 26 BUN 41 (*) Creatinine 1.68 (*) Glucose 107 (*) Calcium 8.5 (*) Anion Gap 11 eGFR 29.6 (*) BUN/Creatinine Ratio 24.4 POCT GLUCOSE METER UNSOLICITED RESULTS - Abnormal Glucose POC 124 (*) Narrative: Waived Testing in the ED is performed under the ED CLIA certificate #[id number]. POCT GLUCOSE METER UNSOLICITED RESULTS - Abnormal Glucose POC 170 (*) Narrative: Waived Testing in the ED is performed under the ED CLIA certificate #[id number]. CBC - Abnormal Auto WBC 8.78 RBC 3.21 (*) Hemoglobin 9.3 (*) Hematocrit 30.8 (*) MCV 96.0 MCH 29.0 MCHC 30.2 (*) RDW 14.9 Platelets 221 BASIC METABOLIC PANEL - Abnormal Sodium 136 Potassium 3.7 Chloride 104 CO2 24 BUN 38 (*) Creatinine 1.68 (*) Glucose 119 (*) Calcium 8.5 (*) Anion Gap 12 eGFR 29.6 (*) BUN/Creatinine Ratio 22.6 POCT GLUCOSE METER UNSOLICITED RESULTS - Abnormal Glucose POC 121 (*) Narrative: Waived Testing in the ED is performed under the ED CLIA certificate #[id number]. 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 9082 POCT ACT - Abnormal POCT ACT 243 (*) QC Pass/Fail Passed QC LOT # 8 QC Expiration Date Narrative: Qc lot [id number]; blanching 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 5175 POCT ACT - Abnormal POCT ACT 161 (*) QC Pass/Fail Passed QC LOT # 8 QC Expiration Date 73,125 Narrative: Qc lot [id number]; 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 5175 MAGNESIUM - Normal Magnesium 2.3 TYPE AND SCREEN ABO Grouping A Rh Type NEG Ab Scrn NEG POCT GLUCOSE METER POCT GLUCOSE METER POCT GLUCOSE METER POCT GLUCOSE METER Nutrition Screen Issues Requiring Follow-Up Follow-up with cardiology clinic within 1 week of discharge Outpatient Follow-Up Future Appointments Date Time Provider Department Center 06/23/2024 1:00 PM Josefina Nova MD CARD [facility] 07/11/2024 2:00 PM [facility] CV ECHO ROOM 1 HV [facility] [place] [facility] 07/25/2024 11:15 AM Josefina Nova MD CARD [facility] Test Results Pending At Discharge Asmita Mcnulty MD PGY-3, Internal Medicine [facility] PROGRESS Observed: 06/11/2024 1:09 PM Status: COMPLETED Source: [facility] Surgical Intensive Care Unit Progress Note Chief Complaint: Critical Care [...] She has history of prior admissions to [facility] with AF/RVR and diastolic heart [...] Interval 434 ms QTC CALCULATION(BAZETT) 447 ms R-Milford -19 degrees T Wave [place] 148 degrees POCT glucose meter Collection Time: [...] 106 QT Interval 434 QTC CALCULATION(BAZETT) 447 R-Milford -19 T Wave [place] 148 Impression Atrial fibrillation Moderate voltage criteria for LVH, may be normal variant ( R in aVL , [place] product ) Marked ST abnormality, possible lateral subendocardial injury Abnormal ECG When compared with ECG of 10-JUN-2024 15:58, (unconfirmed) QRS duration has decreased T wave inversion no longer evident in Lateral Confirmed by Hui LIZARRAGA, CORNELIUS Ren ([id number]) on 06/11/2024 9:56:48 AM Assessment The patient is a 84 y.o. year old female who presented s/p TAVR. Problem List: -Nonrheumatic AV stenosis s/p aortic valve replacement with bioprosthetic valve -chronic diastolic HF -afib -pulmonary HTN - CKD3 Plan Plan: Neuro: - tyenol, oxi as needed - ropinirole - gabapentin CVS: - Q1 Hour Vital Signs - continue constant monitoring with arterial line - arterial line care - continuous Telemetry - IVF bolus as deermined by fluid bolus - passive leg raise test as needed - if patient no longer responding to fluid, will initiate vasopressors, starting with levophed gtt to maintain a MAP of 60/65 and SBP over 90. -Cardiology: - ASA - plavix - digoxin - carvedilol - spironolactone Resp: - Daily oral care - Maintain SpO2 >92% - currently on NC FEN(fluid/Electrolytes/Nutrition)/GI: - continue LR@75 ml/hr, bolus as needed - Replace electrolytes as needed - regular diet - Serial abdominal exams : - Q1 Hour Is&Os - continue steele for now - continue mIVF, bolus as needed Hem/ID: - Daily CBC Endo: -Blood glucose checks, treatment per protocol. - farxiga - insulin sliding scale MSK: -OOB Lines: - PIV Prophylaxis: -EPC cuffs Dispo: SICU By using the attestations below, the signing clinician agrees that I have read and verify that the documentation has been personally reviewed by me and ensure that the documentation accurately reflects the encounter. GC: I personally saw this patient on the day of the encounter, performed the lai portion(s) of the service and participated in the management and confirm the resident's documentation. Please note there may be an additional personal documentation from me. 30 Observed: 06/11/2024 12:29 PM Status: COMPLETED Source: [facility] Daily Case Management Update Multidisciplinary rounds have been completed. Barriers to Discharge: 06/11- POD 1 Underwent Successful wskdl-ou-obnuk transcatheter aortic valve replacement. 3 L NC, small hematoma on chest- stable. Echocardiogram reviewed showing trivial insufficiency. Valve is functioning well. Discharge now in/ appt scheduled. Diet: Dietary Orders (From admission, onward) Start Ordered 06/10/241758 Special Kitchen Request Once Comments: Hot roast beef sandwich with mashed potatoes and gravy. Iced tea 06/10/24175806/10/241657 Regular Diet Heart Healthy/HTN, CABG,Stroke, (2gNA, low fat, low cholesterol) Diet effective now Question Answer Comment Room Service? Yes Fat restriction: Heart Healthy/HTN, CABG,Stroke, (2gNA, low fat, low cholesterol) 06/10/24 165 Physician Expected Discharge Date: 06/11/2024 Discharge Delays: PT Six Click Score: 15 OT Six Click Score: PT Recommendations: OT Recommendations: New Consults: POCT GLUCOSE METER UNSOLICIT ED RESULTS Collected: 06/11/2024 11:11 AM Status: UNK Source: [facility] Order Comment: Waived Testin g in the ED is performed under the ED CLIA certificate #[id number]. TYPE CODE TESTS RESULT OUT OF RANGE REFERENCE UNITS LAB 885 POCT GLUCOSE 121 High 70-105 mg/dL Result Comment: [email or web address] Performed By: #### [id number] #### [facility] ([facility]) [address] [place] [address] PROGRESS Observed: 06/11/2024 10:06 AM Status: COMPLETED Source: [facility] Cardiothoracic Surgery Post Operative Progress Note 06/11/2024 Room: [address] [place] [address] Post Op Day: 1 Day Post-Op Subjective [...] aortic valve replacement. 06/10 s/p Underwent Successful vqnnj-fv-nfcxi transcatheter aortic valve replacement using a 23 mm Zarate Mayra 3 Ultra valve per percutaneous transaxillary access. [...] Aortic stenosis, severe 84y.o. F POD #1 [id number]-ph-kurjc transcatheter aortic valve replacement using a 23 mm Zarate Mayra 3 Ultra valve per percutaneous transaxillary access Plan: -Echocardiogram reviewed showing trivial insufficiency. Reviewed with Dr. Braun, Valve is functioning well and in good position. -Follow-up with Cardiology scheduled for 06/23/[address] Nova. -Cardiology coordinating discharge. -No further follow-up with CT Surgery is needed. Chavez Carson, MS3 [facility] To reach Cardiothoracic Surgery Inpatient from 8am-4pm call Ascom #[phone]. Only use [employer] chat for general questions. If unable to reach Ascom Number call hospital blanching 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 for Cardiothoracic Provider Traffic Control Operator. Cardiothoracic Surgery outpatient Office Number [phone]. Cardiothoracic Surgery outpatient . .att As the [...] her only complain is slight pain [place] [facility] [place] access site. Her exam is good. Patient's access sites are without hematoma. She has good peripheral pulses throughout. Heart has a regular rate and rhythm with prosthetic systolic flow murmur, Lungs equal BS bilaterally. Abd soft NT . Neuro is non focal. Plan as per Cardiology Service. Will discus with them. Craig Braun MD CT Surgery PROGRESS Observed: 06/11/2024 7:37 AM Status: COMPLETED Source: [facility] Cardiothoracic Surgery Progr ess Note 06/11/2024 Room: [address] [place] [address] Subjective Jenni Quinones is a 84 y.o. [...] aortic valve replacement. 06/10 s/p Underwent Successful yzzxu-do-ujfac transcatheter aortic valve replacement using a 23 mm Zarate Mayra 3 Ultra valve per percutaneous transaxillary access. [...] 08/28/2018 Lab Results Component Value Date WBC 8.78 06/11/2024 RBC 3.21 (L) 06/11/2024 HGB 9.3 (L) 06/11/2024 HCT 30.8 (L) 06/11/2024 PLT 221 06/11/2024 NRBC 0 08/30/2018 Transthoracic Echo (TTE) LImited w/wo Contrast, Strain, 3D, Color FLow, Bubble Study Result Date: 06/11/2024 1 1 [facility] Heart Station [address] [place] [address] [phone] (fax) Echocardiogram-[facility] Name: JENNI QUINONES Study Date: 06/11/2024 07:10 AM B/P: 142 mmHg/107 mmHg HR: 70 bpm Date of : 1940 Location: [facility] Height: 62 in. Age: 84 year(s) Patient Room: 2228 Weight: 138 lb. Gender: Female Patient Status: InPt BSA: 1.63 m2 Indication: Aortic stenosis, s/p 23mm Zarate Mayra 3 Ultra TAVR Examination: Limited Echo/Limited Doppler, Color flow imaging Image Quality: Fair Patient Consent: Procedure explained to patient Conclusions Left Ventricle: The left ventricle is normal size. Global left ventricular systolic function is normal. The EF is 55 % visually. Left ventricular wall thickness is increased. Right Ventricle: The right ventricle appears normal in size. Right ventricular systolic function appears normal. Doppler studies suggest moderately elevated right sided pressures (elevated pulmonary pressure). Left Atrium: The left atrium appears enlarged. Mitral Valve: Mild mitral regurgitation. Aortic Valve: 23mm Zarate Mayra 3 Ultra TAVR is well positioned in the aortic area with a mean gradient of 16mmHg and trivial insufficiency. Tricuspid Valve: Moderate tricuspid regurgitation. Measurements Left Ventricle Label Value Normal Value LVOT VTI 13.1 cm (18cm - 22cm) LVOT PGmax 2 mmHg LVEF visual 55 % LVOT PGmean 1 mmHg Aortic Valve Label Value Normal Value AV DVI 0.23 AV VTI 58.2 cm Tricuspid Valve Label Value Normal Value RA Pressure 3 mmHg RVSP 57 mmHg TR Vmax 3.67 m/s Great Vessels Label Value Normal Value IVC 1.3 cm (1.2cm - 2.3cm) Valvular Assessment LVOT 0.7 - 1.1 m/sec Aortic Valve 1.0 - 1.7 m/sec Mitral Valve 0.6 - 1.3 m/sec Tricuspid Valve 0.3 - 0.7 m/sec Pulmonic Valve 0.6 - 0.9 m/sec Regurgitation Trivial Mild Moderate Trivial Max Velocity 0.63 m/sec 2.73 m/s Max Gradient 30.00 mmHg Mean Gradient 16.00 mmHg Findings Left Ventricle: The left ventricle is normal size. Global left ventricular systolic function is normal. The EF is 55 % visually. Left ventricular wall thickness is increased. Right Ventricle: The right ventricle appears normal in size. Right ventricular systolic function appears normal. Doppler studies suggest moderately elevated right sided pressures (elevated pulmonary pressure). Left Atrium: The left atrium appears enlarged. Right Atrium: The right atrium appears enlarged. Mitral Valve: There is nonspecific thickening of the mitral valve leaflet. Mild mitral regurgitation. There is mild mitral annular calcification. Aortic Valve: 23mm Zarate Mayra 3 Ultra TAVR is well positioned in the aortic area with a mean gradient of 16mmHg and trivial insufficiency. Trivial aortic valve regurgitation. Tricuspid Valve: Normal tricuspid valve. Moderate tricuspid regurgitation. Pulmonic Valve: Normal pulmonary valve. Trivial pulmonary regurgitation. Great Vessels: IVC: The IVC is normal in size. Respiratory inspiration greater than 50%. Pericardium: No pericardial effusion. Procedure Staff Reading Group: [facility] Quality Control Technician: WALI Reed, RDCS Ordering Physician: KENDRA CORONADO Limited Echo (TTE) w/wo Limited Doppler, Color Flow, Imaging Agent, Strain, 3D, Bubble Study Result Date: 06/10/2024 1 1 [facility] Heart Station [address] [place] [address] [phone] (fax) Echocardiogram-[facility] Name: JENNI QUINONES Study Date: 06/10/2024 11:59 AM B/P: 98 mmHg/60 mmHg HR: 57 bpm Date of : 1940 Location: [facility] Height: 62 in. Age: 84 year(s) Patient Room: Weight: 145 lb. Gender: Female Patient Status: OutPt BSA: 1.67 m2 Indication: Aortic stenosis, h/o Trifecta AVR, TAVR procedure Examination: Limited Echo/Limited Doppler, Color flow imaging Image Quality: Fair Patient Consent: Procedure explained to patient Conclusions Left Ventricle: The left ventricle is normal size. Global left ventricular systolic function is normal. The EF is 55 % visually. Left ventricular wall thickness is increased. Concentric cardiac remodeling. Right Ventricle: The right ventricle appears normal in size. Right ventricular systolic function appears normal. Left Atrium: The left atrium appears enlarged. Mitral Valve: Mild mitral regurgitation. Aortic Valve: Severely stenosed AVR with trivial insufficiency. Tricuspid Valve: Mild-moderate tricuspid regurgitation. Structural Heart: Successful valve in valve TAVR with Zarate Mayra 3 Ultra in the previous Trifecta AVR with residual mean gradient of 6 mmHG. There is trivial aortic insufficiency. Measurements Left Ventricle Label Value Normal Value LVOT VTI 10.9 cm (18cm - 22cm) LVOT PGmax 1 mmHg LVEF visual 55 % LVDd, 2D 4 cm (3.9cm - 5.3cm) IVSd, 2D 1 cm (0.6cm - 1.1cm) LVPWd, 2D 1 cm (0.6cm - 0.9cm) LV Mass, 2D ASE 127.06 g LV Mass Index, 2D ASE 76.1 g/m?? (44g/m?? - 88.4g/m??) RWT, MM 0.5 (0 - 0.42) LVOT PGmean 1 mmHg Aortic Valve Label Value Normal Value AV DVI 0.12 AV VTI 94 cm Valvular Assessment LVOT 0.7 - 1.1 m/sec Aortic Valve 1.0 - 1.7 m/sec Mitral Valve 0.6 - 1.3 m/sec Tricuspid Valve 0.3 - 0.7 m/sec Pulmonic Valve 0.6 - 0.9 m/sec Regurgitation Mild MildMod Max Velocity 0.47 m/sec 3.97 m/s Max Gradient 63.00 mmHg Mean Gradient 39.00 mmHg Findings Left Ventricle: The left ventricle is normal size. Global left ventricular systolic function is normal. The EF is 55 % visually. Left ventricular wall thickness is increased. Concentric cardiac remodeling. Right Ventricle: The right ventricle appears normal in size. Right ventricular systolic function appears normal. Left Atrium: The left atrium appears enlarged. Right Atrium: The right atrium appears enlarged. Mitral Valve: There is nonspecific thickening of the mitral valve leaflet. Mild mitral regurgitation. There is mild mitral annular calcification. Aortic Valve: Severely stenosed AVR with trivial insufficiency. Tricuspid Valve: Normal tricuspid valve. Mild-moderate tricuspid regurgitation. Pulmonic Valve: Normal pulmonary valve. Aorta: The aortic root is not well visualized. Pericardium: There is a minimal pericardial effusion. Structural Heart: Successful valve in valve TAVR with Zarate Mayra 3 Ultra in the previous Trifecta AVR with residual mean gradient of 6 mmHG. There is trivial aortic insufficiency. Procedure Staff Reading Group: [facility] Quality Control Technician: WALI Reed, RDCS Ordering Physician: KENDRA CORONADO Assessment/Plan Principal Problem: Nonrheumatic aortic valve stenosis Active Problems: Aortic stenosis, severe Plan: -Echocardiogram reviewed showing trivial insufficiency. Reviewed with Dr. Braun, Valve is functioning well and in good position. -Follow-up with Cardiology scheduled for 06/23/[address] Nova. -Cardiology coordinating discharge. -No further follow-up with CT Surgery is needed. To reach Cardiothoracic Surgery Inpatient from 8am-4pm call Ascom #[phone]. Only use epic chat for general questions. If unable to reach Ascom Number call hospital blanching 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 for Cardiothoracic Provider Traffic Control Operator. Cardiothoracic Surgery outpatient Office Number [phone]. Cardiothoracic Surgery outpatient . MAGNESIUM Collected: 06/11/2024 3:30 AM Status: UN K Source: [facility] TYPE CODE TESTS RESULT OUT OF RANGE REFERENCE UNITS LAB [id number] MAGNESIUM (MG/DL) IN SER/PLAS 2.3 1.9-2.7 mg/dL Performed By: #### [id number] ## ## [facility] ([facility]) [address] [place] [address] BASIC METABOLIC PANEL Collected: 2023 3:30 AM Status: UNK Source: [facility] TYPE CODE TESTS RESULT OUT OF RANGE REFERENCE UNITS LAB [id number] SODIUM (MMOL/L) IN SER/PLAS 136 136-145 mmol/L LAB [id number] POTASSIUM (MMOL/L) IN SER/PLAS 3.7 3.5-5.1 mmol/L LAB [id number] CHLORIDE (MMOL/L) IN SER/PLAS 104 98-107 mmol/L LAB [id number] CARBON DIOXIDE, TOTAL (MMOL/L) IN SER/PLAS 24 21-31 mmol/L LAB [id number] UREA NITROGEN (MG/DL) IN SER/PLAS 38 High 7-25 mg/dL LAB [id number] CREATININE (MG/DL) IN SER/PLAS 1.68 High 0.60-1.20 mg/dL LAB [id number] GLUCOSE (MG/DL) IN SER/PLAS 119 High 70-100 mg/dL LAB [id number] CALCIUM (MG/DL) IN SER/PLAS 8.5 Low 8.6-10.3 mg/dL LAB [id number] ANION GAP IN SER/PLAS 12 7-20 mmol/L LAB [id number] GLOMERULAR FILTRATION RATE ML/MIN/1.73 SQ M.PREDICTED 29.6 Low >60.0 mL/min/ 1.73m*2 Result Comment: The [facility]???s estimated glomerular filtration rate (eGFR) will no [...] disproportionately affect any one group of individuals. LAB [id number] UREA NITROGEN/CREA TININE (MASS RATIO) IN SER/PLAS 22.6 NA Performed By: #### [id number] ### # [facility] ([facility]) [address] [place] [address] CBC Collected: 06/11/2024 3:30 AM Status: UN K Source: [facility] TYPE CODE TESTS RESULT OUT OF RANGE REFERENCE UNITS LAB [id number] LEUKOCYTES(10*3/ U L) IN BLOOD BY AUTOMATED COUNT 8.78 4.00-10.60 10*3/uL LAB 4999501 ERYTHROCYTES (10*6/UL) IN BLOOD BY AUTOMATED COUNT 3.21 Low 3.80-5.00 10*6/uL LAB 7281824 HEMOGLOBIN (G/DL ) IN BLOOD 9.3 Low 12.0-15.0 g/dL LAB 0521900 HEMATOCRIT (%) I N BLOOD BY AUTOMATED COUNT 30.8 Low 36.0-48.0 % LAB 1185194 ERYTHROCYTE MEAN CORPUSCULAR VOLUME (FL) BY AUTOMATED COUNT 96.0 82.0-98.0 fL LAB 0450657 ERYTHROCYTE MEAN CORPUSCULAR HEMOGLOBIN (PG) BY AUTOMATED COUNT 29.0 27.0-33.0 pg LAB 1133925 ERYTHROCYTE MEAN CORPUSCULAR HEMOGLOBIN CONCENTRATION (G/DL) BY AUTOMATED 30.2 Low 32.0-35.0 g/dL LAB [id number] ERYTHROCYTE DISTRIBUTION WIDTH (RATIO) BY AUTOMATED COUNT 14.9 11.5-15.0 % LAB 4070187 PLATELETS (10*3/UL) IN BLOOD AUTOMATED COUNT 221 150-400 10*3/uL Performed By: #### [id number] ## ## [facility] ([facility]) [address] [place] [address] PROGRESS Observed: 06/10/2024 9:36 PM Status: COMPLETED Source: [facility] Pharmacy Dosing Service - Va ncomycin Initial Consult Note Pharmacy has been consulted for the dosing and evaluation of Drug: Vancomycin Indication: Surgical Prophylaxis x 24 hours post op Other Antimicrobial Regimens: none Labs and Renal Function Total body weight: 62.6 kg (138 lb) [place] body weight: 50.1 kg (110 lb 7.2 [...] for infection, please re-consult and we will lgok-vo-xkzqki. -Please do not hesitate to contact us with comments or questions Thank you, Isamar Chavez, PharmD, 06/10/24 POCT GLUCOSE METER UNSOLICIT ED RESULTS Collected: 06/10/2024 9:24 PM Status: UNK Source: [facility] Order Comment: Waived Testin g in the ED is performed under the ED CLIA certificate #[id number]. TYPE CODE TESTS RESULT OUT OF RANGE REFERENCE UNITS LAB 885 POCT GLUCOSE 170 High 70-105 mg/dL Result Comment: [email or web address] Performed By: #### [id number] #### [facility] ([facility]) [address] [place] [address] BASIC METABOLIC PANEL Collected: 2023 6:58 PM Status: UNK Source: [facility] TYPE CODE TESTS RESULT OUT OF RANGE REFERENCE UNITS LAB [id number] SODIUM (MMOL/L) IN SER/PLAS 136 136-145 mmol/L LAB 1973470 POTASSIUM (MMOL/L) IN SER/PLAS 3.9 3.5-5.1 mmol/L LAB 0680270 CHLORIDE (MMOL/L) IN SER/PLAS 103 98-107 mmol/L LAB 3825784 CARBON DIOXIDE, TOTAL (MMOL/L) IN SER/PLAS 26 21-31 mmol/L LAB 0445206 UREA NITROGEN (MG/DL) IN SER/PLAS 41 High 7-25 mg/dL LAB 4282021 CREATININE (MG/DL) IN SER/PLAS 1.68 High 0.60-1.20 mg/dL LAB [id number] GLUCOSE (MG/DL) IN SER/PLAS 107 High 70-100 mg/dL LAB 5702192 CALCIUM (MG/DL) IN SER/PLAS 8.5 Low 8.6-10.3 mg/dL LAB 5379882 ANION GAP IN SER/PLAS 11 7-20 mmol/L LAB 4071482 GLOMERULAR FILTRATION RATE ML/MIN/1.73 SQ M.PREDICTED 29.6 Low >60.0 mL/min/ 1.73m*2 Result Comment: The [facility]???s estimated glomerular filtration rate (eGFR) will no [...] disproportionately affect any one group of individuals. LAB 6008238 UREA NITROGEN/CREA TININE (MASS RATIO) IN SER/PLAS 24.4 NA Performed By: #### [id number] ### # [facility] ([facility]) [address] [place] [address] POCT GLUCOSE METER UNSOLICIT ED RESULTS Collected: 06/10/2024 5:28 PM Status: UNK Source: [facility] Order Comment: Waived Testin g in the ED is performed under the ED CLIA certificate #[id number]. TYPE CODE TESTS RESULT OUT OF RANGE REFERENCE UNITS LAB 885 POCT GLUCOSE 124 High 70-105 mg/dL Result Comment: askomer Performed By: #### [id number] #### [facility] [address] [place] [address] NURSNOTE Observed: 06/10/2024 4:52 PM Status: COMPLETED Source: [facility] Report given to KING Luciano RNC RN notified RN of pts procedural intervention site, allergies, IV location/status, and medications given during the procedure. Any diagnostics, abnormal labs, abnormal assessment findings, orders and safety concerns/issues were reviewed. RN encouraged RN receiving handoff to voice any questions or concerns, and answered any questions or concerns if verbalized. RN verbalizes the pt will be coming up to the floor soon. CONSULT Observed: 06/10/2024 4:50 PM Status: COMPLETED Source: [facility] Surgical Intensive Care Unit Consult Note Reason For Consult S/p [...] She has history of prior admissions to [facility] with AF/RVR and diastolic heart [...] drugs. Family History: pulled available information in [facility] from previous visits Family History Problem [...] Recent Results (from the past 12 hour(s)) Type and screen Collection Time: 06/10/24 10:30 AM Result Value Ref Range ABO Grouping A Rh Type NEG Ab Scrn NEG Electrocardiogram, 12-lead Collection Time: 06/10/24 12:07 PM Result Value Ref Range Ventricular Rate 64 BPM QRS DURATION 102 ms QT Interval 424 ms QTC CALCULATION(BAZETT) 437 ms R-Milford -14 degrees T Wave [place] 143 degrees Radiologic studies: No X-ray results found for the past [address] results found for the past 24 hours No MRI results found for the past 24 hours EKG: Encounter Date: 06/10/24 Electrocardiogram, 12-lead Result Value Ventricular Rate 64 QRS DURATION 102 QT Interval 424 QTC CALCULATION(BAZETT) 437 R-Milford -14 T Wave [place] 143 Impression Atrial fibrillation Left ventricular hypertrophy ( R in aVL , Sokolow-Serrano , Bagdad product ) Marked ST abnormality, possible lateral subendocardial injury Abnormal ECG When compared with ECG of 27-MAY-2024 07:44, No significant change was found Confirmed by Hui LIZARRAGA, CORNELIUS Ren ([id number]) on 06/10/2024 1:50:44 PM Assessment The patient is a 84 y.o. year old female who presented s/p TAVR. Problem List: -Nonrheumatic AV stenosis s/p aortic valve replacement with bioprosthetic valve -chronic diastolic HF -afib -pulmonary HTN - CKD3 Plan Plan: Neuro: - tyenol, oxi as needed - ropinirole - gabapentin CVS: - Q1 Hour Vital Signs - continue constant monitoring with arterial line - arterial line care - continuous Telemetry -Cardiology: - ASA - plavix - digoxin - carvedilol - spironolactone Resp: - on NC, monitor sats and wean as tolerated. FEN(Fluid/Electrolytes/Nutrition)/GI: - continue LR@75 ml/hr, bolus as needed - Replace electrolytes as needed - regular diet : - Q1 Hour Is&Os - continue steele for now - continue mIVF, bolus as needed Hem/ID: - Daily CBC Endo: -Blood glucose checks, treatment per protocol. - farxiga - insulin sliding scale MSK: monitor skin Lines: - PIV Prophylaxis: -EPC cuffs Dispo: SICU By using the attestations below, the signing clinician agrees that I have read and verify that the documentation has been personally reviewed by me and ensure that the documentation accurately reflects the encounter. GC: I personally saw this patient on the day of the encounter, performed the lai portion(s) of the service and participated in the management and confirm the resident's documentation. Please note there may be an additional personal documentation from me. PROGRESS Observed: 06/10/2024 3:59 PM Status: COMPLETED Source: [facility] Craig Braun MD 06/10/2024 TAVR V in V Mayra S3 Ultra # 23 valve OP NOTE: [...] access for the TAVR procedure. PROCEDURES: Successful tzsmr-jm-hpovu transcatheter aortic valve replacement using a 23 mm Zarate Mayra 3 Ultra valve deployed at nominal volume via percutaneous transfemoral access. Placement of a temporary pacemaker wire. Left heart catheterization. Access into the left subclavian artery, left radial artery, left common femoral artery and vein under ultrasound guidance. Left axillary artery angiogram. Preclosure in the left axillary artery using two 6-Beninese ProGlide devices. Balloon aortic valvuloplasty. OPERATORS: Interventional Cardiology Chuck Wagon Cook: Josefina Nova MD Cardiac Surgery Chuck Wagon Cook: Craig Braun MD Film Technician Interventional Cardiology Chuck Wagon Cook: Ángel Lim MD METHODS: Procedure was explained to the patient with risks and benefits. she signed informed consent. she was brought to blood bank laboratory technologist in a fasting state. The procedure was performed in the cardiac blood bank laboratory technologist under conscious sedation. The left groin area, the left wrist area, and the left shoulder area were prepped and draped in usual fashion. Micropuncture technique and ultrasound guidance were used for access in the left common femoral artery and inner cannula angiography was performed followed by upsizing to a 6-Beninese x 11 cm sheath. The same was done for the access in the left common femoral vein. Ultrasound guidance was used for micropuncture access in the left radial artery and a 4-Beninese x 11 cm introducer sheath was secured [...] cannular angiography followed by upsizing to a 6-Beninese x 11 cm sheath. At this time, we proceeded with the preclosure in the left axillary artery using 2 crossing Perclose devices and the access was then upsized over a wire to a 10-Beninese sheath. A 5-Beninese balloon-tipped pacemaker wire was advanced through the left common femoral vein sheath to the right ventricular apex and adequate capture was confirmed. Heparin was given intravenously and therapeutic ACT confirmed during the rest of the procedure and additional heparin given as needed. A 6 Beninese JL 3.5 guiding catheter was advanced through the left common femoral arterial sheath and used to engage the left coronary artery. Angiography was performed. A Prowater wire was advanced into the distal LAD. This was placed for protection of the left main given moderate risk for coronary obstruction. A 6-Beninese AR1 diagnostic catheter was advanced via the axillary sheath, and using a straight stiff Glidewire, the aortic valve was crossed and the catheter was advanced in the left ventricular cavity, and using an exchange length J-wire, a 6-Beninese angled pigtail catheter was advanced to make [...] length amplatz extra stiff wire to the 14-Beninese Zarate E-sheath. The sheath was secured in place. Based on the prior CT scan measurements and the jvdsk-uv-fcxti erika, we proceeded with a Zarate Mayra 3 Ultra 23 mm valve. This was [...] delivery catheter of the valve was exchanged over the wire to a 6-Beninese angled pigtail catheter which was advanced across the valve into the left ventricular cavity and used to perform left heart catheterization and assessment of the valvular gradient. There was 4 mm Hg mean transvalvular gradient. Echocardiography was performed showing no perivalvular leak and 6 mmHg mean gradient across the valve, and no pericardial effusion. The pigtail catheters were retracted. Angiography through the guiding catheter showed adequate flow in the left coronary cusp and left coronary artery therefore the Prowater wire was retracted and the guiding catheter was retracted. Through the left radial sheath a V18 wire was advanced into the left axillary artery and the Zarate E sheath was retracted. The V18 wire was advanced into the ascending aorta and a 6 mm x 40 mm Shimon balloon was advanced over the V18 wire into the proximal left subclavian artery and used to block the axillary artery flow by inflation at 6 keturah. The previously placed Perclose sutures were tightened in the left axillary artery achieving good hemostasis. The Shimon balloon was retracted and there was evidence of good hemostasis in the left axillary artery. The Shimon balloon was removed. The pressure in the left radial artery was measured and it was comparable to central pressure. Through the left common femoral arterial sheath a 5 Beninese JR4 diagnostic catheter was advanced and used to engage the left subclavian artery. Angiography of the left subsequent artery using digital subtraction imaging showed adequate hemostasis of the left axillary artery access site with patency of the axillary artery and no evidence of dissection or perforation and good flow throughout the artery. The diagnostic catheter was retracted. At this stage, the procedure was concluded. An electrocardiogram was performed showing atrial fibrillation as know before with mild prolongation of the QRS complex compared to baseline. Therefore, the temporary pacemaker wire was retracted and removed. Protamine 20 mg was administered at the end of the procedure. Manual compression was used for hemostasis in the left common femoral artery and vein. Distal pulses in the feet were comparable to baseline. The left radial sheath was removed and TR band was used for hemostasis in the left radial artery. she tolerated the procedure well. She was hemodynamically stable and awake throughout the procedure with no apparent complications. She will be transferred to the hospital bed for further management. Craig Braun MD CT Surgery ANES Observed: 06/10/2024 11:50 AM Status: COMPLETED Source: [facility] Patient: Jenni Quinones Procedure Information Date/Time: 06/10/24 1130 Procedure: TAVR - PC APPROVED Location: [facility]ESTHET[facility] 3 / [facility]ASCULAR [facility] (Cath) Providers: Josefina Nova [...] consented to blood products. Additional Equipment Requests HP Observed: 06/10/2024 11:30 AM Status: COMPLETED Source: [facility] H&P reviewed. The patient wa s examined and there are no changes to the H&P. NURSNOTE Observed: 06/10/2024 10:45 AM Status: COMPLETED Source: [facility] CHG wipes and betadine nasal swabs completed. TYPE AND SCREEN Collected: 10:30 AM Status: UNK Source: [facility] TYPE CODE TESTS RESULT OUT OF RANGE REFERENCE UNITS LAB [id number] ABO GROUP (TYPE) IN BLOOD A LAB [id number] RH TYPE IN BLOOD NEG LAB [id number] AB SCREEN NEG Performed By: #### [id number] ## ## [facility] BLOOD BANK , TELEPHONE Observed: 06/03/2024 12:00 AM Status: COMPLETED Source: [facility] [id number] Jenni Quinones [birth year] F Date Provider Department Center 06/03/2024 [id number] LAGUNA [facility] [place] [facility] Family History Problem Relation Age of Onset Diabetes Father Heart failure Father Other Other Family Status - Relation Status Age at Father Other Reason for Visit and Comments: Dental clearance reminder [Other] HP Observed: 06/02/2024 11:15 AM Status: COMPLETED Source: [facility] Cardiology - [facility] Subjective Jenni Quinones [...] of iron deficiency Heart valve transplanted Hyperthyroidism alf current use of anticoagulant therapy Mixed anxiety [...] use: Not Currently Drug use: Never SHERRY Arteaga is seen in follow-up. She [...] She has history of prior admissions to [facility] with AF/RVR and diastolic heart [...] catheterization 05/27/2024 showed minimal coronary artery disease and significantly elevated filling and pulmonary pressures. Today she reports that she has been having significant shortness of breath on mild exertion, NYHA class IIIb. She continues to be on oxygen therapy. She is weak and tired all the time. No significant lower extremity edema. No chest pain. Review of Systems Constitutional: Positive for malaise/fatigue. Cardiovascular: Positive for dyspnea on exertion and palpitations. Respiratory: Positive for shortness of breath. Hematologic/Lymphatic: Bruises/bleeds easily. Musculoskeletal: Positive for arthritis, back pain and muscle weakness. Neurological: Positive for excessive daytime sleepiness, focal weakness, light-headedness, loss of balance, numbness and weakness. All other systems reviewed and are negative. Objective Visit Vitals BP 124/62 (BP Location: Right arm, Patient Position: Sitting) Pulse 50 Ht 1.575 m (5' 2 ) SpO2 99% Comment: on 2L O2 BMI 26.52 kg/m??? OB Status Postmenopausal Smoking Status Former BSA 1.7 m??? Physical Exam Constitutional: Appearance: She is well-developed. She is ill-appearing. Comments: On oxygen by nasal prongs HENT: Head: Normocephalic and atraumatic. Nose: Nose [...] murmur is present with a grade of 4/6. No friction rub. No gallop. Pulmonary: Effort: Pulmonary effort is normal. No respiratory distress. Breath sounds: Normal breath sounds. No wheezing or rales. Chest: Chest wall: No tenderness. Abdominal: General: Bowel sounds are normal. There is no distension. Palpations: Abdomen is soft. Tenderness: There is no abdominal tenderness. Musculoskeletal: General: No swelling. Cervical back: Neck supple. Right lower leg: No edema. Left lower leg: No edema. Skin: General: Skin is warm and dry. Neurological: General: No focal deficit present. Mental Status: She is alert and oriented to person, place, and time. Psychiatric: Mood and Affect: Mood normal. Behavior: Behavior is cooperative. Judgment: Judgment normal. Allergies Allergies Allergen Reactions Codeine GI intolerance Entresto [Sacubitril-Valsartan] Other Penicillins Rash Medications Current Outpatient Medications: ALPRAZolam (Niravam) 0.25 mg disintegrating tablet, Take 0.25 mg by mouth if needed in the morning, at noon, and at bedtime for anxiety., Disp: , Rfl: aspirin 81 mg EC [...] by mouth with breakfast and with evening meal., Disp: 60 tablet, Rfl: 0 colchicine 0.6 mg tablet, Take 0.6 mg by mouth if needed., Disp: , Rfl: digoxin (Lanoxin) 125 MCG tablet, Take 125 mcg by mouth in the morning., Disp: , Rfl: empagliflozin (Jardiance) 10 mg, Take 1 tablet (10 mg) by mouth in the morning., Disp: 30 tablet, Rfl: 11 escitalopram (Lexapro) 10 mg tablet, Take 1 tablet by mouth in the morning., Disp: , Rfl: gabapentin (Neurontin) 100 mg capsule, take 1 capsule by mouth three times a day, Disp: , Rfl: insulin lispro protamin-lispro (HumaLOG Mix 75-25) 100 unit/mL (75-25) injection, INJECT 15 UNITS SUBCUTANEOUSLY IN THE MORNING AND 10 UNITS IN THE EVENING, Disp: , Rfl: levothyroxine (Synthroid, Levoxyl) 50 mcg tablet, Take 50 mcg by mouth before breakfast., Disp: , Rfl: omeprazole (PriLOSEC) [address] capsule, Take 1 capsule by mouth in the morning., Disp: , Rfl: rOPINIRole (Requip) 0.25 mg tablet, TAKE 1 TABLET BY MOUTH ONE TO THREE HOURS BEFORE BEDTIME, Disp: , Rfl: spironolactone (Aldactone) 25 mg tablet, Take 25 mg by mouth in the morning., Disp: , Rfl: torsemide (Demadex) 20 mg tablet, Take 50 mg by mouth in the morning., Disp: , Rfl: furosemide (Lasix) 40 mg tablet, Take 40 mg by mouth in the morning., Disp: , Rfl: Recent Labs Hospital Outpatient Visit on 05/27/2024 Component Date Value Ventricular Rate 05/27/2024 67 QRS DURATION 05/27/2024 104 QT Interval 05/27/2024 396 QTC CALCULATION(BAZETT) 05/27/2024 418 R-Mil[place] 05/27/2024 -10 T Wave [place] 05/27/2024 150 FHZJMD80% 05/27/2024 45.0 (A) QC Pass/Fail 05/27/2024 Passed QC LOT # 05/27/2024 [id number] QC Expiration Date 05/27/2024 113,025 SAMPLESITE 05/27/2024 not listed Blood testing 01/03/2024: Potassium 3.5, BUN 42, creatinine 1.85, EGFR 26. Blood testing 11/18/2023: Hemoglobin 9.5, Platelets 214, potassium 3.4, BUN 47, creatinine 1.54, EGFR 32. Blood testing 11/17/2023: high-sensitivity troponin 26.8, NT proBNP 707,627. Blood testing 12/06/2022: Potassium 4.0, BUN 42, creatinine 1.69, digoxin less than 0.2, TSH 2.427. 11/15/2022 Hgb 9.8, plt 186 Cr 2.65, BUN 66, K 3.7, Na 140, eGFR 17, ALT 14, AST 14 NTproBNP 6134 11/13/2022 -Cr 3.12, BUN 59, K 5.3, Na 143, eGFR 14 NTproBNP 60100 TSH 5.233 05/02/22 Dig 0.7 CBC normal Renal function slightly elevated CR 1.4-1.5 Liver function normal K+ normal A1C 7.0 Imaging and other tests ECG 05/27/2024: Atrial fibrillation Left ventricular hypertrophy with repolarization abnormality (R in aVL, Rito product) Abnormal ECG Cardiac catheterization 05/27/2024: Impression/Findings: Minimal coronary artery disease. Moderate elevation of left filling pressures. Moderate elevation of right filling pressures. Severe pulmonary hypertension. Severely reduced cardiac output and cardiac index. Uncontrolled systemic hypertension. 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 Plan: Medical therapy for coronary artery disease. The patient should proceed with the evaluation for aortic valve replacement. At her advanced age, prior open heart surgery, presence of severe pulmonary hypertension and frailty I think that she would best be served by TAVR. Consult Cardiothoracic Surgery team. Follow up in Cardiology Clinic. Transesophageal echocardiogram 05/27/2024: Left Ventricle: The left ventricle is normal size. Global left ventricular systolic function is normal. The EF is 55 % visually. Left ventricular wall thickness is moderately increased. No regional wall motion abnormality. Right Ventricle: The right ventricle appears enlarged. Right ventricular systolic function appears reduced. Doppler studies suggest severely elevated right sided pressures. Left Atrium: The left atrium is severely enlarged. IAS: No intracardiac shunt by Doppler color flow. Right Atrium: The right atrium is severely enlarged. Mitral Valve: Trvial to mild mitral regurgitation. Mild mitral valve stenosis. Mitral Valve Measurements MV PGmean: 4.45 mmHg. Aortic Valve: A 23 mm Trifecta bioprosthetic aortic valve is seen in the aortic position with abnormaly high Doppler flows. There is mild aortic prosthesis regurgitation. There is severe, calcfiic prosthesis stenosis. Aortic Valve Measurements AV VTI: 91.20 cm. FELICITA 2D: 0.8 cm???. AV PGmax: 64.64 mmHg. AV PGmean: 37.00 mmHg. AV Vmax, Caliper: 4.02 m/s. Tricuspid Valve: Severe tricuspid regurgitation. Tricuspid Valve Measurements RVSP: 76 mmHg. TR Vmax: 4.13 m/s. Aorta: Mild to moderate atherosclerotic plaque is seen in the aorta. Echocardiogram 05/07/2024: LVEF 50-55% Moderate LVH Evidence of fluid overload Severe tricuspid regurg Severe pulm HTN, RVSP 85 Mild mitral valve stenosis Mild mitral regurg Severe stenosis of bioprosthetic aortic valve, mild aortic regurg Echocardiogram 10/23/2023: The left ventricle is normal in size and exhibits low normal systolic function. Estimated LVEF is 50 to 55%. The right ventricle is severely dilated and exhibits normal systolic function. Severe biatrial dilatation. 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 Mild aortic regurgitation is seen. Mild to moderate mitral stenosis with mild regurgitation. Severe tricuspid regurgitation. Severely elevated right-sided pressures. Depending on the clinical picture a transesophageal echocardiogram is recommended for further assessment of the valvular lesions. RVSP is 77 mmHg. FARA 12/22/2022: Left Ventricle: The left ventricle is normal size. Global left ventricular systolic function is normal. The EF is 55 % visually. Right Ventricle: There are elevated right sided pressures. The right ventricle is mildly enlarged. Right ventricular systolic function appears normal. Left Atrium: The left atrial appendage has been surgically ligated. The left atrium is severely enlarged. Right Atrium: The right atrium is severely enlarged. Mitral Valve: Mild mitral regurgitation. Moderate mitral valve stenosis. Mitral Valve Measurements MV Vmax: 2.12 m/s. MV PGmean: 7.00 mmHg. Aortic Valve: A 23 mm Trifecta bioprosthetic valve is seen in the aortic position. The prosthetic aortic valve exhibits moderately calcified cusps. Moderate prosthesis stenosis. Aortic Valve Measurements AV PGmean: 17.00 mmHg. AV DVI: 0.22. Tricuspid Valve: Moderate to severe tricuspid regurgitation. Tricuspid Valve Measurements RVSP: 68 mmHg. TR Vmax: 4.04 m/s. ECHO (11/14/2022) LVEF 35-40%. D-shaped septum consistent with RV pressure and/or volume overload Severe biatrial enlargement RV is enlarged with reduced systolic function Significant mitral annular and valvular calcification Bioprosthetic aortic valve is seen with significant calcification and restricted leaflet mobitily 12/20/21 FARA- Left Ventricle: The left ventricle is normal size. Global left ventricular systolic function is normal. The EF is 55 % visually. No regional wall motion abnormality. Right Ventricle: The right ventricle is normal in size. Normal right ventricular systolic function. Doppler studies suggest mildly elevated right sided pressures. Left Atrium: An ZEN stump is present (patient had prior surgical closure). No clot is appreciable in multiple views. The left atrium is severely enlarged. Right Atrium: The right atrium is severely enlarged. Mitral Valve: Mild mitral regurgitation. Mild mitral valve stenosis. Aortic Valve: A bioprosthetic valve is seen in the aortic position with abnormaly high Doppler flows. Tricuspid Valve: Moderate tricuspid regurgitation. Aorta: The aortic root exhibits mild dilatation. The ascending aorta measures 3.60 cm. Right heart catheterization 12/20/2021: RA 10, PA 58/17 mean 34, pulmonary wedge pressure 18 with V waves up to 29, cardiac output 4.12, cardiac index 2.18. Normal coronary angiogram in 2016. Echocardiogram 04/19/2016: Mildly reduced LV EF (45-50%), severe aortic stenosis, moderate aortic, mitral and tricuspid regurgitation, moderate pulmonary hypertension. (mean gradient across the valve is 34 mmHg). Echocardiogram 12/25/2013: LV EF 50%, moderate aortic stenosis and regurgitation. Echocardiogram 11/20/2011: Normal global left ventricular systolic function with moderate left ventricular hypertrophy. Mild biatrial enlargement. Moderate aortic stenosis with mild to moderate aortic regurgitation. Mildly elevated right-sided pressures. Mild tricuspid and mitral regurgitation Cardiac cath in 2009: mild CAD, mildly reduced LV systolic function, mild aortic stenosis, mild mitral regurgitation, elevated LVEDP. Carotid ultrasound 2009: moderate right carotid stenosis. Assessment/Plan Diagnoses and all orders for this visit: Nonrheumatic aortic valve stenosis S/P aortic valve replacement with bioprosthetic valve Chronic diastolic heart failure (CMS/HCC) - CBC and differential; Future - Comprehensive metabolic panel; Future Dyspnea on exertion Permanent atrial fibrillation (CMS/HCC) - Digoxin level; Future Nonrheumatic mitral (valve) stenosis Pulmonary hypertension (CMS/HCC) Stage 3a chronic kidney disease (CMS/HCC) I had a long discussion with her regarding the management of her severe stage D1 symptomatic aortic valve stenosis of the bioprosthetic valve. I discussed with her that this condition leads to limited long-term survival. I indicated to her that aortic valve replacement is recommended. she was evaluated by cardiothoracic surgery and was deemed high risk for SAVR. Her STS PROM is 24.2% and risk of mortality or morbidity is 38.3%. In my opinion, I think that she is a prohibitive risk patient for SAVR and is better served by valve in valve TAVR. I went over TAVR procedure in details. I discussed the potential risks with TAVR including stroke, [place], and . I also discussed the risk of requiring permanent pacemaker after TAVR. In addition I indicated that there is a small chance of needing to convert to open surgical procedure due to any complications during or after TAVR procedure. One of the major issues with her is her significant peripheral vascular disease and the CT scans show that the iliofemoral conduits are suboptimal for access due to presence of calcific stenoses. I explained to her that we will review in our multidisciplinary team meeting with interventional cardiology and cardiothoracic surgery the available options but I indicated to her that she could require an alternative access such as transcarotid or transsubclavian. she understands and agrees to proceed with the above. I am going to check CBC, CMP and digoxin level. I will see her in follow-up after the procedure. No follow-ups on file. Josefina Nova MD PROGRESS Observed: 06/02/2024 11:15 AM Status: COMPLETED Source: [facility] Cardiology - [facility] Subjective Jenni Helga Joni is a 84 y.o. year old female [...] of iron deficiency Heart valve transplanted Hyperthyroidism alf current use of anticoagulant therapy Mixed anxiety [...] She has history of prior admissions to [facility] with AF/RVR and diastolic heart [...] catheterization 05/27/2024 showed minimal coronary artery disease and significantly elevated filling and pulmonary pressures. Today she reports that she has been having significant shortness of breath on mild exertion, NYHA class IIIb. She continues to be on oxygen therapy. She is weak and tired all the time. No significant lower extremity edema. No chest pain. Review of Systems Constitutional: Positive for malaise/fatigue. Cardiovascular: Positive for dyspnea on exertion and palpitations. Respiratory: Positive for shortness of breath. Hematologic/Lymphatic: Bruises/bleeds easily. Musculoskeletal: Positive for arthritis, back pain and muscle weakness. Neurological: Positive for excessive daytime sleepiness, focal weakness, light-headedness, loss of balance, numbness and weakness. All other systems reviewed and are negative. Objective Visit Vitals BP 124/62 (BP Location: Right arm, Patient Position: Sitting) Pulse 50 Ht 1.575 m (5' 2 ) SpO2 99% Comment: on 2L O2 BMI 26.52 kg/m??? OB Status Postmenopausal Smoking Status Former BSA 1.7 m??? Physical Exam Constitutional: Appearance: She is well-developed. She is ill-appearing. Comments: On oxygen by nasal prongs HENT: Head: Normocephalic and atraumatic. Nose: Nose [...] murmur is present with a grade of 4/6. No friction rub. No gallop. Pulmonary: Effort: Pulmonary effort is normal. No respiratory distress. Breath sounds: Normal breath sounds. No wheezing or rales. Chest: Chest wall: No tenderness. Abdominal: General: Bowel sounds are normal. There is no distension. Palpations: Abdomen is soft. Tenderness: There is no abdominal tenderness. Musculoskeletal: General: No swelling. Cervical back: Neck supple. Right lower leg: No edema. Left lower leg: No edema. Skin: General: Skin is warm and dry. Neurological: General: No focal deficit present. Mental Status: She is alert and oriented to person, place, and time. Psychiatric: Mood and Affect: Mood normal. Behavior: Behavior is cooperative. Judgment: Judgment normal. Allergies Allergies Allergen Reactions Codeine GI intolerance Entresto [Sacubitril-Valsartan] Other Penicillins Rash Medications Current Outpatient Medications: ALPRAZolam (Niravam) 0.25 mg disintegrating tablet, Take 0.25 mg by mouth if needed in the morning, at noon, and at bedtime for anxiety., Disp: , Rfl: aspirin 81 mg EC [...] by mouth with breakfast and with evening meal., Disp: 60 tablet, Rfl: 0 colchicine 0.6 mg tablet, Take 0.6 mg by mouth if needed., Disp: , Rfl: digoxin (Lanoxin) 125 MCG tablet, Take 125 mcg by mouth in the morning., Disp: , Rfl: empagliflozin (Jardiance) 10 mg, Take 1 tablet (10 mg) by mouth in the morning., Disp: 30 tablet, Rfl: 11 escitalopram (Lexapro) 10 mg tablet, Take 1 tablet by mouth in the morning., Disp: , Rfl: gabapentin (Neurontin) 100 mg capsule, take 1 capsule by mouth three times a day, Disp: , Rfl: insulin lispro protamin-lispro (HumaLOG Mix 75-25) 100 unit/mL (75-25) injection, INJECT 15 UNITS SUBCUTANEOUSLY IN THE MORNING AND 10 UNITS IN THE EVENING, Disp: , Rfl: levothyroxine (Synthroid, Levoxyl) 50 mcg tablet, Take 50 mcg by mouth before breakfast., Disp: , Rfl: omeprazole (PriLOSEC) [address] capsule, Take 1 capsule by mouth in the morning., Disp: , Rfl: rOPINIRole (Requip) 0.25 mg tablet, TAKE 1 TABLET BY MOUTH ONE TO THREE HOURS BEFORE BEDTIME, Disp: , Rfl: spironolactone (Aldactone) 25 mg tablet, Take 25 mg by mouth in the morning., Disp: , Rfl: torsemide (Demadex) 20 mg tablet, Take 50 mg by mouth in the morning., Disp: , Rfl: furosemide (Lasix) 40 mg tablet, Take 40 mg by mouth in the morning., Disp: , Rfl: Recent Labs Hospital Outpatient Visit on 05/27/2024 Component Date Value Ventricular Rate 05/27/2024 67 QRS DURATION 05/27/2024 104 QT Interval 05/27/2024 396 QTC CALCULATION(BAZETT) 05/27/2024 418 R-[place] 05/27/2024 -10 T Wave [place] 05/27/2024 150 FDFOHI59% 05/27/2024 45.0 (A) QC Pass/Fail 05/27/2024 Passed QC LOT # 05/27/2024 [id number] QC Expiration Date 05/27/2024 113,025 SAMPLESITE 05/27/2024 not listed Blood testing 01/03/2024: Potassium 3.5, BUN 42, creatinine 1.85, EGFR 26. Blood testing 11/18/2023: Hemoglobin 9.5, Platelets 214, potassium 3.4, BUN 47, creatinine 1.54, EGFR 32. Blood testing 11/17/2023: high-sensitivity troponin 26.8, NT proBNP 707,627. Blood testing 12/06/2022: Potassium 4.0, BUN 42, creatinine 1.69, digoxin less than 0.2, TSH 2.427. 11/15/2022 Hgb 9.8, plt 186 Cr 2.65, BUN 66, K 3.7, Na 140, eGFR 17, ALT 14, AST 14 NTproBNP 6134 11/13/2022 -Cr 3.12, BUN 59, K 5.3, Na 143, eGFR 14 NTproBNP 71481 TSH 5.233 05/02/22 Dig 0.7 CBC normal Renal function slightly elevated CR 1.4-1.5 Liver function normal K+ normal A1C 7.0 Imaging and other tests ECG 05/27/2024: Atrial fibrillation Left ventricular hypertrophy with repolarization abnormality (R in aVL, Rito product) Abnormal ECG Cardiac catheterization 05/27/2024: Impression/Findings: Minimal coronary artery disease. Moderate elevation of left filling pressures. Moderate elevation of right filling pressures. Severe pulmonary hypertension. Severely reduced cardiac output and cardiac index. Uncontrolled systemic hypertension. 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 Plan: Medical therapy for coronary artery disease. The patient should proceed with the evaluation for aortic valve replacement. At her advanced age, prior open heart surgery, presence of severe pulmonary hypertension and frailty I think that she would best be served by TAVR. Consult Cardiothoracic Surgery team. Follow up in Cardiology Clinic. Transesophageal echocardiogram 05/27/2024: Left Ventricle: The left ventricle is normal size. Global left ventricular systolic function is normal. The EF is 55 % visually. Left ventricular wall thickness is moderately increased. No regional wall motion abnormality. Right Ventricle: The right ventricle appears enlarged. Right ventricular systolic function appears reduced. Doppler studies suggest severely elevated right sided pressures. Left Atrium: The left atrium is severely enlarged. IAS: No intracardiac shunt by Doppler color flow. Right Atrium: The right atrium is severely enlarged. Mitral Valve: Trvial to mild mitral regurgitation. Mild mitral valve stenosis. Mitral Valve Measurements MV PGmean: 4.45 mmHg. Aortic Valve: A 23 mm Trifecta bioprosthetic aortic valve is seen in the aortic position with abnormaly high Doppler flows. There is mild aortic prosthesis regurgitation. There is severe, calcfiic prosthesis stenosis. Aortic Valve Measurements AV VTI: 91.20 cm. FELICITA 2D: 0.8 cm???. AV PGmax: 64.64 mmHg. AV PGmean: 37.00 mmHg. AV Vmax, Caliper: 4.02 m/s. Tricuspid Valve: Severe tricuspid regurgitation. Tricuspid Valve Measurements RVSP: 76 mmHg. TR Vmax: 4.13 m/s. Aorta: Mild to moderate atherosclerotic plaque is seen in the aorta. Echocardiogram 05/07/2024: LVEF 50-55% Moderate LVH Evidence of fluid overload Severe tricuspid regurg Severe pulm HTN, RVSP 85 Mild mitral valve stenosis Mild mitral regurg Severe stenosis of bioprosthetic aortic valve, mild aortic regurg Echocardiogram 10/23/2023: The left ventricle is normal in size and exhibits low normal systolic function. Estimated LVEF is 50 to 55%. The right ventricle is severely dilated and exhibits normal systolic function. Severe biatrial dilatation. 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 Mild aortic regurgitation is seen. Mild to moderate mitral stenosis with mild regurgitation. Severe tricuspid regurgitation. Severely elevated right-sided pressures. Depending on the clinical picture a transesophageal echocardiogram is recommended for further assessment of the valvular lesions. RVSP is 77 mmHg. FARA 12/22/2022: Left Ventricle: The left ventricle is normal size. Global left ventricular systolic function is normal. The EF is 55 % visually. Right Ventricle: There are elevated right sided pressures. The right ventricle is mildly enlarged. Right ventricular systolic function appears normal. Left Atrium: The left atrial appendage has been surgically ligated. The left atrium is severely enlarged. Right Atrium: The right atrium is severely enlarged. Mitral Valve: Mild mitral regurgitation. Moderate mitral valve stenosis. Mitral Valve Measurements MV Vmax: 2.12 m/s. MV PGmean: 7.00 mmHg. Aortic Valve: A 23 mm Trifecta bioprosthetic valve is seen in the aortic position. The prosthetic aortic valve exhibits moderately calcified cusps. Moderate prosthesis stenosis. Aortic Valve Measurements AV PGmean: 17.00 mmHg. AV DVI: 0.22. Tricuspid Valve: Moderate to severe tricuspid regurgitation. Tricuspid Valve Measurements RVSP: 68 mmHg. TR Vmax: 4.04 m/s. ECHO (11/14/2022) LVEF 35-40%. D-shaped septum consistent with RV pressure and/or volume overload Severe biatrial enlargement RV is enlarged with reduced systolic function Significant mitral annular and valvular calcification Bioprosthetic aortic valve is seen with significant calcification and restricted leaflet mobitily 12/20/21 FARA- Left Ventricle: The left ventricle is normal size. Global left ventricular systolic function is normal. The EF is 55 % visually. No regional wall motion abnormality. Right Ventricle: The right ventricle is normal in size. Normal right ventricular systolic function. Doppler studies suggest mildly elevated right sided pressures. Left Atrium: An ZEN stump is present (patient had prior surgical closure). No clot is appreciable in multiple views. The left atrium is severely enlarged. Right Atrium: The right atrium is severely enlarged. Mitral Valve: Mild mitral regurgitation. Mild mitral valve stenosis. Aortic Valve: A bioprosthetic valve is seen in the aortic position with abnormaly high Doppler flows. Tricuspid Valve: Moderate tricuspid regurgitation. Aorta: The aortic root exhibits mild dilatation. The ascending aorta measures 3.60 cm. Right heart catheterization 12/20/2021: RA 10, PA 58/17 mean 34, pulmonary wedge pressure 18 with V waves up to 29, cardiac output 4.12, cardiac index 2.18. Normal coronary angiogram in 2015. Echocardiogram 04/19/2016: Mildly reduced LV EF (45-50%), severe aortic stenosis, moderate aortic, mitral and tricuspid regurgitation, moderate pulmonary hypertension. (mean gradient across the valve is 34 mmHg). Echocardiogram 12/25/2013: LV EF 50%, moderate aortic stenosis and regurgitation. Echocardiogram 11/20/2011: Normal global left ventricular systolic function with moderate left ventricular hypertrophy. Mild biatrial enlargement. Moderate aortic stenosis with mild to moderate aortic regurgitation. Mildly elevated right-sided pressures. Mild tricuspid and mitral regurgitation Cardiac cath in 2009: mild CAD, mildly reduced LV systolic function, mild aortic stenosis, mild mitral regurgitation, elevated LVEDP. Carotid ultrasound 2009: moderate right carotid stenosis. Assessment/Plan Diagnoses and all orders for this visit: Nonrheumatic aortic valve stenosis S/P aortic valve replacement with bioprosthetic valve Chronic diastolic heart failure (CMS/HCC) - CBC and differential; Future - Comprehensive metabolic panel; Future Dyspnea on exertion Permanent atrial fibrillation (CMS/HCC) - Digoxin level; Future Nonrheumatic mitral (valve) stenosis Pulmonary hypertension (CMS/HCC) Stage 3a chronic kidney disease (CMS/HCC) I had a long discussion with her regarding the management of her severe stage D1 symptomatic aortic valve stenosis of the bioprosthetic valve. I discussed with her that this condition leads to limited long-term survival. I indicated to her that aortic valve replacement is recommended. she was evaluated by cardiothoracic surgery and was deemed high risk for SAVR. Her STS PROM is 24.2% and risk of mortality or morbidity is 38.3%. In my opinion, I think that she is a prohibitive risk patient for SAVR and is better served by valve in valve TAVR. I went over TAVR procedure in details. I discussed the potential risks with TAVR including stroke, [place], and . I also discussed the risk of requiring permanent pacemaker after TAVR. In addition I indicated that there is a small chance of needing to convert to open surgical procedure due to any complications during or after TAVR procedure. One of the major issues with her is her significant peripheral vascular disease and the CT scans show that the iliofemoral conduits are suboptimal for access due to presence of calcific stenoses. I explained to her that we will review in our multidisciplinary team meeting with interventional cardiology and cardiothoracic surgery the available options but I indicated to her that she could require an alternative access such as transcarotid or transsubclavian. she understands and agrees to proceed with the above. I am going to check CBC, CMP and digoxin level. I will see her in follow-up after the procedure. No follow-ups on file. Josefina Nova MD OFFICE VISIT Observed: 06/02/2024 11:15 AM Status: COMPLETED Source: [facility] [id number] Jenni Qiunones 02/15 Provider Department Center 06/02/2024 Rocky-JOSEFINA NOVA SYMONE [facility] Family History Problem Relation Age of Onset Diabetes Father Heart failure Father Other Other Family Status - Relation Status Age at Father Other Level of Service:19988 [place] OFFICE/OUTPATIENT ESTABLISHED HIGH MDM 40 MIN ORDERS ONLY Observed: 05/30/2024 12:00 AM Status: COMPLETED Source: [facility] [id number] Jenni Quinones 02/15 Provider Department Center 05/30/2024 144-KENDRA CORONADO [facility] [place] [facility] Family History Problem Relation Age of Onset Diabetes Father Heart failure Father Other Other Family Status - Relation Status Age at Father Other CONSULT Observed: 05/29/2024 2:30 PM Status: COMPLETED Source: [facility] [id number] Jenni Quinones [birth year]/15 F Date Provider Department Center 05/29/202437737-IUYDVKCRAIG BRAUN [facility] [place] [facility] Family History Problem Relation Age of Onset Diabetes Father Heart failure Father Other Other Family Status - Relation Status Age at Father Other Level of Service:88137 [place] OFFICE/OP CONSLTJ NEW/EST PT HIGH MDM 55 MINUTES Reason for Visit and Comments: New Patient [[id number]] - TAVR PROGRESS Observed: 05/29/2024 2:30 PM Status: COMPLETED Source: [facility] Cardiothoracic Surgery Outpa tient Consultation Note 05/29/2024 Reason For Visit Chief [...] and Other Diagnostic Testing. Findings discussed with technical support internship and patient. Explained current disease process and [...] by mouth before breakfast. omeprazole (PriLOSEC) [address] capsule Take 1 capsule by mouth in the morning. rOPINIRole (Requip) 0.25 mg tablet TAKE 1 TABLET BY MOUTH ONE TO THREE HOURS BEFORE BEDTIME spironolactone (Aldactone) 25 mg tablet Take 25 mg by mouth in the morning. torsemide (Demadex) 20 mg tablet Take 20 mg by mouth in the morning. Takes 20mg oral daily No current facility-administered medications for this visit. Facility-Administered Medications Ordered in Other Visits Medication Dose Route Frequency Provider Last Rate Last Admin iohexol (OMNIPaque) 350 mg iodine/mL injection 100 mL 100 mL intravenous Once in imaging Kendra Coronado NP 100 mL at 05/29/24 0948 Review of Systems Review of Systems: All 14 Systems Reviewed and Negative unless otherwise indicated in the above HPI. Last Recorded Vitals Visit Vitals BP 116/82 (BP Location: Right arm, Patient Position: Sitting, BP Cuff Size: Small adult) Pulse 70 Resp 18 Physical Exam Physical Exam Patient is a pleasant ,frail-appearing woman. No acute distress. She is wearing oxygen and seated in a wheelchair Pupils are equally round and reactive to light. She had no carotid bruits. COR: Her heart had a regular rate and rhythm. There was a loud systolic ejection murmur heard in the right upper sternal border. Her sternotomy incision was well-healed Lungs were clear to auscultation bilaterally Abdomen was soft nontender with positive bowel sounds Extremities had minimal peripheral edema 1+ pulses. Neuroexam: patient was frail, but had no focal deficit. She was alert and oriented x 3. Relevant Results No visits with results within 1 Day(s) from this visit. Latest known visit with results is: Hospital Outpatient Visit on 05/27/2024 Component Date Value Ref Range Status Ventricular Rate 05/27/2024 67 BPM Final QRS DURATION 05/27/2024 104 ms Final QT Interval 05/27/2024 396 ms Final QTC CALCULATION(BAZETT) 05/27/2024 418 ms Final R-[place] 05/27/2024 -10 degrees Final T Wave [place] 05/27/2024 150 degrees Final [id number]% 05/27/2024 45.0 (A) 90 - 95 % Final QC Pass/Fail 05/27/2024 Passed Final QC LOT # 05/27/2024 [id number] Final QC Expiration Date 05/27/2024 113,025 Final SAMPLESITE 05/27/2024 not listed Final Transesophageal echo (FARA) Result Date: 05/27/2024 1 [facility] Heart Station [address] [place] [address] [phone] (fax) Transesophageal Echocardiogram-[facility] Name: JENNI QUINONES Study Date: 05/27/2024 09:25 AM B/P: 118 mmHg/57 mmHg HR: Date of : 1940 Location: [facility] Height: 62 in. Age: 84 year(s) Patient Room: Weight: 145 lb. Gender: Female Patient Status: OutPt BSA: 1.67 m2 Indication: Aortic Valve Stenosis, H/O AVR; 23 mm trifecta Examination: FARA/Limited Doppler/CFI, 3D images Image Quality: Good Patient Consent: Informed, written consent was obtained for the procedure Exam Location: A FARA was performed in the [employer] without complications Anesthesia Pharyngeal anesthesia with viscous Lidocaine Conclusions Left Ventricle: The left ventricle is normal size. Global left ventricular systolic function is normal. The EF is 55 % visually. Left ventricular wall thickness is moderately increased. No regional wall motion abnormality. Right Ventricle: The right ventricle appears enlarged. Right ventricular systolic function appears reduced. Doppler studies suggest severely elevated right sided pressures. Left Atrium: The left atrium is severely enlarged. IAS: No intracardiac shunt by Doppler color flow. Right Atrium: The right atrium is severely enlarged. Mitral Valve: Trvial to mild mitral regurgitation. Mild mitral valve stenosis. Mitral Valve Measurements MV PGmean: 4.45 mmHg. Aortic Valve: A 23 mm Trifecta bioprosthetic aortic valve is seen in the aortic position with abnormaly high Doppler flows. There is mild aortic prosthesis regurgitation. There is severe, calcfiic prosthesis stenosis. Aortic Valve Measurements AV VTI: 91.20 cm. FELICITA 2D: 0.8 cm??. AV PGmax: 64.64 mmHg. AV PGmean: 37.00 mmHg. AV Vmax, Caliper: 4.02 m/s. Tricuspid Valve: Severe tricuspid regurgitation. Tricuspid Valve Measurements RVSP: 76 mmHg. TR Vmax: 4.13 m/s. Aorta: Mild to moderate atherosclerotic plaque is seen in the aorta. Pericardium: No pericardial effusion. Medications Date Time Name Route Form Dose Units Ordered By Given By Comment 05/27/2024 10:27 AM Midazolam HCL (Versed) 3 milligrams 05/27/2024 10:27 AM Fentanyl (Opiates) 50 micrograms Measurements Left Ventricle Label Value Normal Value LVEF visual 55 % Aortic Valve Label Value Normal Value AV VTI 91.2 cm Tricuspid Valve Label Value Normal Value RA Pressure 8 mmHg RVSP 76 mmHg TR Vmax 4.13 m/s Aorta Label Value Normal Value AoAsc 3.5 cm Valvular Assessment LVOT 0.7 - 1.1 m/sec Aortic Valve 1.0 - 1.7 m/sec Mitral Valve 0.6 - 1.3 m/sec Tricuspid Valve 0.3 - 0.7 m/sec Pulmonic Valve 0.6 - 0.9 m/sec Regurgitation trivMil Severe No Stenosis Mild No No Max Velocity 4.02 m/s Max Gradient 64.64 mmHg 16.41 mmHg Mean Gradient 37.00 mmHg 4.45 mmHg Findings Left Ventricle: The left ventricle is normal size. Global left ventricular systolic function is normal. The EF is 55 % visually. Left ventricular wall thickness is moderately increased. No regional wall motion abnormality. Right Ventricle: The right ventricle appears enlarged. Right ventricular systolic function appears reduced. Doppler studies suggest severely elevated right sided pressures. Right Ventricular Measurements TR Pmax: 68 mmHg. Left Atrium: The left atrium is severely enlarged. Spontaneous contrast in the left atrium. Left Atrium Appendage: ZEN s/p surgical ligation, small pocket present, no thrombus seen. IAS: No intracardiac shunt by Doppler color flow. Right Atrium: The right atrium is severely enlarged. Mitral Valve: There is nonspecific thickening of the mitral valve leaflet. Trvial to mild mitral regurgitation. Mild mitral valve stenosis. Mitral Valve Measurements MV Vmax: 2.03 m/s. MV Vmean: 0.98 m/s. MV PGmax: 16.41 mmHg. MV PGmean: 4.45 mmHg. Aortic Valve: A 23 mm Trifecta bioprosthetic aortic valve is seen in the aortic position with abnormaly high Doppler flows. There is mild aortic prosthesis regurgitation. There is severe, calcfiic prosthesis stenosis. Aortic Valve Measurements AV VTI: 91.20 cm. FELICITA 2D: 0.8 cm??. AV PGmax: 64.64 mmHg. AV PGmean: 37.00 mmHg. AV Vmax, Caliper: 4.02 m/s. Tricuspid Valve: Tricuspid valve appears normal. Severe tricuspid regurgitation. No tricuspid valve stenosis. Tricuspid Valve Measurements RVSP: 76 mmHg. Pulmonic Valve: Pulmonary valve appears normal. No pulmonary regurgitation. No pulmonic valve stenosis. Aorta: Mild to moderate atherosclerotic plaque is seen in the aorta. The ascending aorta measures 3.50 cm. Ascending aorta is normal in size. Pericardium: No pericardial effusion. Procedure Staff Reading Group: [facility] Quality Control Technician: Gina Tai RDCS Ordering Physician: Brent Peralta NP No CT results found for the past 6 months No X-ray results found for the past 3 days Cardiothoracic Surgery outpatient Office Number [phone]. Cardiothoracic Surgery outpatient . The STS for this procedure: Without PFT's or Carotid US Procedure Type: Isolated AVR Perioperative Outcome Estimate % Operative Mortality 24.2% Morbidity & Mortality 38.3% Stroke 8.99% Renal Failure 15.3% Reoperation 6.91% Prolonged Ventilation 26.7% Deep Sternal Wound Infection 0.18% Long Hospital Stay (>14 days) 17.9% Short Hospital Stay (<6 days)* 6.74% Clinical Summary Planned Surgery: Isolated AVR, Elective, ReOp#1 cardiovascular surgery Demographics: 84 year old, female, 65.8kg, 154.9cm, BMI: 27.4 kg/m??? Lab Values: Creatinine: 0.87 mg/dL, Hematocrit: 30.5%, WBC Count: 10.51 10???/?L, Platelet Count: [id number] cells/?L Substance Abuse: Former smoker Risk Factors / Comorbidities: Hypertension Pulmonary RF: Unknown CLD, Sleep Apnea Vascular RF: Cerebrovascular Disease: CVA > 30 days Cardiac Status: Chronic heart failure, NYHA Class II, Ejection Fraction = 55% Coronary Artery Disease: No coronary symptoms Valve Disease: Aortic Stenosis, Mitral Stenosis, Mild MR, Severe TR Arrhythmia: Recent A-fib, Persistent Prev. Cardiac Interv: Previous valve: Aortic valve replacement, surgical CTA CHEST W IV CONTRAST Observed: 2023 9:15 AM Status: UNK Source: [facility] Order Comment: Low dose cont rast (40 ml) Clinical history: Scheduled aortic valve replacement Technique: [...] as low as reasonably achievable. Electronically signed: Dino Lopes. 9 CTA ABDOMEN PELVIS W IV CONTRAST Observed: 05/29/2024 9:14 AM Status: UNK Source: [facility] Clinical history: Scheduled aortic valve replacement Technique: [...] as low as reasonably achievable. Electronically signed: Dino Lopes. 9 NURSNOTE Observed: 05/27/2024 3:31 PM Status: COMPLETED Source: [facility] RN educated pt on d/c instru ctions. This included: site care, limited physical activity, [...] off of unit with all of belongings. NURSNOTE Observed: 05/27/2024 11:53 AM Status: COMPLETED Source: [facility] Bedside swallow study comple paige and passed. ANES Observed: 05/27/2024 10:54 AM Status: COMPLETED Source: [facility] Patient: Jenni Quinones Procedure Information Date/Time: 05/27/24 1000 Procedures: Right heart cath Coronary angiography Location: [facility] ANESTHETIST 3 / [facility] (Cath) Providers: Josefina Nova [...] consented to blood products. Additional Equipment Requests HP Observed: 05/27/2024 10:49 AM Status: COMPLETED Source: [facility] H&P reviewed. The patient wa s examined and there are no changes to [...] wishes to proceed. Kisha Durand MD PGY-6 Telephone Assembler HP Observed: 05/27/2024 8:30 AM Status: COMPLETED Source: [facility] Attestation signed by Grace Todd MD at 05/27/2024 11:30 AM I personally saw and examined the patient on the same date of service as resident/fellow Dr ospina. I discussed the findings and therapeutic plan with the resident/fellow Dr ospina. I agree with the documentation, except for any edits/updates below. Teaching Physician's Revisions: None Grace Todd MD, [facility] H&P reviewed. The patient was examined and there are no changes to the H&P. The procedure was explained to the patient. The risks and benefits of the procedure were explained to the patient who showed understanding and with full capacity elected to proceed with the procedure. All questions were addressed and answered. Yanet Ospina MD Telephone Assembler - PGY6 [facility] ANE Observed: 05/27/2024 8:30 AM Status: COMPLETED Source: [facility] Patient: Jenni Partida Quinones Procedure Information Date/Time: 05/27/24829 Procedure: TRANSESOPHAGEAL ECHO (FARA) Location: [facility] Heart and Vascular Center Vascular [...] Plan discussed with attending. Additional Equipment Requests NURSNOTE Observed: 05/27/2024 8:30 AM Status: COMPLETED Source: [facility] Report given to KING Turner. RN verbalized how FARA went and medications given during the procedure. ORDERS ONLY Observed: 05/27/2024 12:00 AM Status: COMPLETED Source: [facility] [id number] Jneni Quinones [birth year] F Date Provider Department Center 05/27/2024 Zohra-KENDRA CORONADO [facility] [place] [facility] Family History Problem Relation Age of Onset Diabetes Father Heart failure Father Other Other Family Status - Relation Status Age at Father Other ORDERS ONLY Observed: 05/27/2024 12:00 AM Status: COMPLETED Source: [facility] [id number] Jenni Quinones [birth year] F Date Provider Department Center 05/27/2024 KENDRA ESTRELLA [facility] [place] [facility] Family History Problem Relation Age of Onset Diabetes Father Heart failure Father Other Other Family Status - Relation Status Age at Father Other ORDERS ONLY Observed: 05/23/2024 12:00 AM Status: COMPLETED Source: [facility] [id number] Jenni Quinones [birth year] F Date Provider Department Center 05/23/2024 Torrey-CHAYO KRAMER [facility] [place] [facility] Family History Problem Relation Age of Onset Diabetes Father Heart failure Father Other Other Family Status - Relation Status Age at Father Other PROGRESS Observed: 05/13/2024 3:20 PM Status: COMPLETED Source: [facility] Patient here for 3 mo follow up aortic/mitral valve stenosis, diastolic heart failure, and permanent afib. She was admitted to [facility] a few weeks ago for chest [...] All other systems reviewed and are negative. HP Observed: 05/13/2024 3:20 PM Status: COMPLETED Source: [facility] Cardiovascular Medicine [facility] SUBJECTIVE Chief Complaint Patient presents with [...] c/o chest pain. She was transferred to [facility] for further cardiac care. 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 Mixed anxiety [...] Controlled diabetes mellitus type II without complication ([facility]/HCC) Atrial flutter ([facility]/HCC) Benign essential hypertension Pulmonary hypertension ([facility]/HCC) Nontoxic single thyroid nodule Unsteadiness on feet Primary osteoarthritis of right foot Inflammation of foot joint Generalized osteoarthritis Diabetic mononeuropathy (CMS/HCC) Arthritis of ankle, right Anxiety Compression fracture of T12 vertebra ([facility]/HCC) Pathological fracture of vertebra Peripheral angiopathy due to type 2 diabetes mellitus ([facility]/HCC) Bilateral posterior capsular opacification Dry eyes Lumbar radiculitis Chronic right-sided heart failure (CMS/HCC) Acute electrocardiogram changes Chest pain Fracture of rib of left side Lumbar spondylosis Past Medical History: Diagnosis Date Abnormal ECG Anemia Aortic valve disorder 04/20/2016 aortic valve replacement with a 23 mm trifecta tissue valve: 2015 Arrhythmia Atrial fibrillation (CMS/HCC) Bradycardia CHF (congestive heart failure) ([facility]/HCC) Heart valve disease Hyperlipidemia Hypertension Sleep [...] evening meal.), Disp: 60 tablet, Rfl: 0 colchicine 0.6 mg tablet, Take 0.6 mg by mouth if needed., Disp: , Rfl: digoxin (Lanoxin) 125 MCG tablet, Take 125 mcg by mouth every other day., Disp: , Rfl: empagliflozin (Jardiance) 10 mg, Take 1 tablet (10 mg) by mouth in the morning., Disp: 30 tablet, Rfl: 11 escitalopram (Lexapro) 10 mg tablet, Take 1 tablet by mouth in the morning., Disp: , Rfl: gabapentin (Neurontin) 100 mg capsule, take 1 capsule by mouth three times a day, Disp: , Rfl: insulin lispro protamin-lispro (HumaLOG Mix 75-25) 100 unit/mL (75-25) injection, INJECT 15 UNITS SUBCUTANEOUSLY IN THE MORNING AND 10 UNITS IN THE EVENING, Disp: , Rfl: omeprazole (PriLOSEC) [address] capsule, Take 1 capsule by mouth in the morning., Disp: , Rfl: rOPINIRole (Requip) 0.25 mg tablet, TAKE 1 TABLET BY MOUTH ONE TO THREE HOURS BEFORE BEDTIME, Disp: , Rfl: spironolactone (Aldactone) 25 mg tablet, Take 25 mg by mouth in the morning., Disp: , Rfl: torsemide (Demadex) 20 mg tablet, Take 2.5 tablets by mouth in the morning., Disp: , Rfl: levothyroxine (Synthroid, Levoxyl) 50 mcg tablet, Take 50 mcg by mouth before breakfast., Disp: , Rfl: Physical Exam Vitals reviewed. Constitutional: Appearance: Normal appearance. She is normal weight. HENT: Head: Normocephalic and atraumatic. Right Ear: External ear normal. Left Ear: External ear normal. Eyes: Extraocular Movements: Extraocular movements intact. Conjunctiva/sclera: Conjunctivae normal. Pupils: Pupils are equal, round, and reactive to light. Neck: Vascular: No carotid bruit. Cardiovascular: Rate and Rhythm: Normal rate and regular rhythm. Pulses: Normal pulses. Heart sounds: Murmur (systolic, RUSB, 4/6) heard. Pulmonary: Effort: Pulmonary effort is normal. Breath sounds: Normal breath sounds. Abdominal: General: Bowel sounds are normal. Palpations: Abdomen is soft. Musculoskeletal: Cervical back: Neck supple. Right lower leg: No edema. Left lower leg: No edema. Skin: General: Skin is warm and dry. Neurological: General: No focal deficit present. Mental Status: She is alert and oriented to person, place, and time. Psychiatric: Mood and Affect: Mood normal. Behavior: Behavior normal. Thought Content: Thought content normal. Judgment: Judgment normal. Labs: Legacy Encounter on 08/30/2018 Component Date Value Ref Range Status Protime 08/30/2018 16.3 (H) 12.3 - 14.8 sec Final INR 08/30/2018 1.31 (H) 0.91 - 1.16 Final Lab Results Component Value Date BNP 1,567 (H) 08/16/2018 Blood testing 01/03/2024: Potassium 3.5, BUN 42, creatinine 1.85, EGFR 26. Blood testing 11/18/2023: Hemoglobin 9.5, Platelets 214, potassium 3.4, BUN 47, creatinine 1.54, EGFR 32. Blood testing 11/17/2023: high-sensitivity troponin 26.8, NT proBNP 707,627. Blood testing 12/06/2022: Potassium 4.0, BUN 42, creatinine 1.69, digoxin less than 0.2, TSH 2.427. 11/15/2022 Hgb 9.8, plt 186 Cr 2.65, BUN 66, K 3.7, Na 140, eGFR 17, ALT 14, AST 14 NTproBNP 6134 11/13/2022 -Cr 3.12, BUN 59, K 5.3, Na 143, eGFR 14 NTproBNP 52142 TSH 5.233 05/02/22 Dig 0.7 CBC normal Renal function slightly elevated CR 1.4-1.5 Liver function normal K+ normal A1C 7.0 Testing/Procedures: ECHO 05/07/2024 LVEF 50-55% Moderate LVH Evidence of fluid overload Severe tricuspid regurg Severe pulm HTN, RVSP 85 Mild mitral valve stenosis Mild mitral regurg Severe stenosis of bioprosthetic aortic valve, mild aortic regurg Echocardiogram 10/23/2023: The left ventricle is normal in size and exhibits low normal systolic function. Estimated LVEF is 50 to 55%. The right ventricle is severely dilated and exhibits normal systolic function. Severe biatrial dilatation. 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 Mild aortic regurgitation is seen. Mild to moderate mitral stenosis with mild regurgitation. Severe tricuspid regurgitation. Severely elevated right-sided pressures. Depending on the clinical picture a transesophageal echocardiogram is recommended for further assessment of the valvular lesions. RVSP is 77 mmHg. FARA 12/22/2022: Left Ventricle: The left ventricle is normal size. Global left ventricular systolic function is normal. The EF is 55 % visually. Right Ventricle: There are elevated right sided pressures. The right ventricle is mildly enlarged. Right ventricular systolic function appears normal. Left Atrium: The left atrial appendage has been surgically ligated. The left atrium is severely enlarged. Right Atrium: The right atrium is severely enlarged. Mitral Valve: Mild mitral regurgitation. Moderate mitral valve stenosis. Mitral Valve Measurements MV Vmax: 2.12 m/s. MV PGmean: 7.00 mmHg. Aortic Valve: A 23 mm Trifecta bioprosthetic valve is seen in the aortic position. The prosthetic aortic valve exhibits moderately calcified cusps. Moderate prosthesis stenosis. Aortic Valve Measurements AV PGmean: 17.00 mmHg. AV DVI: 0.22. Tricuspid Valve: Moderate to severe tricuspid regurgitation. Tricuspid Valve Measurements RVSP: 68 mmHg. TR Vmax: 4.04 m/s. ECHO (11/14/2022) LVEF 35-40%. D-shaped septum consistent with RV pressure and/or volume overload Severe biatrial enlargement RV is enlarged with reduced systolic function Significant mitral annular and valvular calcification Bioprosthetic aortic valve is seen with significant calcification and restricted leaflet mobitily 12/20/21 FARA- Left Ventricle: The left ventricle is normal size. Global left ventricular systolic function is normal. The EF is 55 % visually. No regional wall motion abnormality. Right Ventricle: The right ventricle is normal in size. Normal right ventricular systolic function. Doppler studies suggest mildly elevated right sided pressures. Left Atrium: An ZEN stump is present (patient had prior surgical closure). No clot is appreciable in multiple views. The left atrium is severely enlarged. Right Atrium: The right atrium is severely enlarged. Mitral Valve: Mild mitral regurgitation. Mild mitral valve stenosis. Aortic Valve: A bioprosthetic valve is seen in the aortic position with abnormaly high Doppler flows. Tricuspid Valve: Moderate tricuspid regurgitation. Aorta: The aortic root exhibits mild dilatation. The ascending aorta measures 3.60 cm. Right heart catheterization 12/20/2021: RA 10, PA 58/17 mean 34, pulmonary wedge pressure 18 with V waves up to 29, cardiac output 4.12, cardiac index 2.18. Normal coronary angiogram in 2016. Echocardiogram 04/19/2016: Mildly reduced LV EF (45-50%), severe aortic stenosis, moderate aortic, mitral and tricuspid regurgitation, moderate pulmonary hypertension. (mean gradient across the valve is 34 mmHg). Echocardiogram 12/25/2013: LV EF 50%, moderate aortic stenosis and regurgitation. Echocardiogram 11/20/2011: Normal global left ventricular systolic function with moderate left ventricular hypertrophy. Mild biatrial enlargement. Moderate aortic stenosis with mild to moderate aortic regurgitation. Mildly elevated right-sided pressures. Mild tricuspid and mitral regurgitation Cardiac cath in 2009: mild CAD, mildly reduced LV systolic function, mild aortic stenosis, mild mitral regurgitation, elevated LVEDP. Carotid ultrasound 2009: moderate right carotid stenosis. ASSESSMENT/PLAN: Diagnoses and all orders for this visit: Nonrheumatic aortic valve stenosis - Case Request Aircraft Engine Mechanic: Right heart cath, Coronary angiography - Transesophageal echo (FARA); Future S/P aortic valve replacement with bioprosthetic valve - Case Request Aircraft Engine Mechanic: Right heart cath, Coronary angiography - Transesophageal echo (FARA); Future Dyspnea on exertion - Case Request Aircraft Engine Mechanic: Right heart cath, Coronary angiography Chronic combined systolic and diastolic heart failure (CMS/HCC) Permanent atrial fibrillation (CMS/HCC) Nonrheumatic mitral (valve) stenosis Pulmonary hypertension (CMS/HCC) Stage 3a chronic kidney disease (CMS/HCC) #Aortic valve stenosis s/p bioprosthetic aortic valve replacement -Her most recent ECHO done 05/07/2024 showed severe aortic stenosis. Reviewed by Dr. Nova who recommended further evaluation for valve replaced, she likely will valve in valve TAVR. Discussed with patient/family and she is agreeable to proceed. -Will order for a FARA along with RHC and coronary angiogram. #Combined systolic and diastolic heart failure, recovered EF -Low normal EF per 04/2024 ECHO -She currently appears compensated on exam -Severely elevated right sided pressures on recent ECHO. RHC ordered to further assess right sided pressures. -Continue Jardiance, spironolactone, torsemide #Permanent a.fib s/p MAZE procedure and ZEN surgical exclusion -Prior bleeding with coumadin -Continue aspirin 81mg daily and BB #Mitral valve stenosis -Mild per 04/2024 ECHO - continue to monitor #HTN -Controlled #HLD -On atorvastatin Follow up in about 4 weeks (around 06/10/2024). Brent Peralta NP [facility] Cardiovascular Medicine OFFICE VISIT Observed: 05/13/2024 3:20 PM Status: COMPLETED Source: [facility] [id number] Jenni Quinones [birth year] F Date Provider Department Center 05/13/2024 166-[facility]ENT PERALTA [facility] Family History Problem Relation Age of Onset Diabetes Father Heart failure Father Other Other Family Status - Relation Status Age at Father Other Level of Service:311[address] [place] OFFICE/OUTPATIENT ESTABLISHED HIGH MDM 40 MIN Reason for Visit and Comments: Valve Disorder [3372] Congestive Heart Failure [127] HP Observed: 05/13/2024 3:20 PM Status: COMPLETED Source: [facility] Cardiovascular Medicine [facility] SUBJECTIVE Chief Complaint Patient presents with [...] c/o chest pain. She was transferred to [facility] for further cardiac care. 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 transplanted Hyperthyroidism alf current use of anticoagulant therapy Mixed anxiety [...] evening meal.), Disp: 60 tablet, Rfl: 0 colchicine 0.6 mg tablet, Take 0.6 mg by mouth if needed., Disp: , Rfl: digoxin (Lanoxin) 125 MCG tablet, Take 125 mcg by mouth every other day., Disp: , Rfl: empagliflozin (Jardiance) 10 mg, Take 1 tablet (10 mg) by mouth in the morning., Disp: 30 tablet, Rfl: 11 escitalopram (Lexapro) 10 mg tablet, Take 1 tablet by mouth in the morning., Disp: , Rfl: gabapentin (Neurontin) 100 mg capsule, take 1 capsule by mouth three times a day, Disp: , Rfl: insulin lispro protamin-lispro (HumaLOG Mix 75-25) 100 unit/mL (75-25) injection, INJECT 15 UNITS SUBCUTANEOUSLY IN THE MORNING AND 10 UNITS IN THE EVENING, Disp: , Rfl: omeprazole (PriLOSEC) [address] capsule, Take 1 capsule by mouth in the morning., Disp: , Rfl: rOPINIRole (Requip) 0.25 mg tablet, TAKE 1 TABLET BY MOUTH ONE TO THREE HOURS BEFORE BEDTIME, Disp: , Rfl: spironolactone (Aldactone) 25 mg tablet, Take 25 mg by mouth in the morning., Disp: , Rfl: torsemide (Demadex) 20 mg tablet, Take 2.5 tablets by mouth in the morning., Disp: , Rfl: levothyroxine (Synthroid, Levoxyl) 50 mcg tablet, Take 50 mcg by mouth before breakfast., Disp: , Rfl: Physical Exam Vitals reviewed. Constitutional: Appearance: Normal appearance. She is normal weight. HENT: Head: Normocephalic and atraumatic. Right Ear: External ear normal. Left Ear: External ear normal. Eyes: Extraocular Movements: Extraocular movements intact. Conjunctiva/sclera: Conjunctivae normal. Pupils: Pupils are equal, round, and reactive to light. Neck: Vascular: No carotid bruit. Cardiovascular: Rate and Rhythm: Normal rate and regular rhythm. Pulses: Normal pulses. Heart sounds: Murmur (systolic, RUSB, 4/6) heard. Pulmonary: Effort: Pulmonary effort is normal. Breath sounds: Normal breath sounds. Abdominal: General: Bowel sounds are normal. Palpations: Abdomen is soft. Musculoskeletal: Cervical back: Neck supple. Right lower leg: No edema. Left lower leg: No edema. Skin: General: Skin is warm and dry. Neurological: General: No focal deficit present. Mental Status: She is alert and oriented to person, place, and time. Psychiatric: Mood and Affect: Mood normal. Behavior: Behavior normal. Thought Content: Thought content normal. Judgment: Judgment normal. Labs: Legacy Encounter on 08/30/2018 Component Date Value Ref Range Status Protime 08/30/2018 16.3 (H) 12.3 - 14.8 sec Final INR 08/30/2018 1.31 (H) 0.91 - 1.16 Final Lab Results Component Value Date BNP 1,567 (H) 08/16/2018 Blood testing 01/03/2024: Potassium 3.5, BUN 42, creatinine 1.85, EGFR 26. Blood testing 11/18/2023: Hemoglobin 9.5, Platelets 214, potassium 3.4, BUN 47, creatinine 1.54, EGFR 32. Blood testing 11/17/2023: high-sensitivity troponin 26.8, NT proBNP 707,627. Blood testing 12/06/2022: Potassium 4.0, BUN 42, creatinine 1.69, digoxin less than 0.2, TSH 2.427. 11/15/2022 Hgb 9.8, plt 186 Cr 2.65, BUN 66, K 3.7, Na 140, eGFR 17, ALT 14, AST 14 NTproBNP 6134 11/13/2022 -Cr 3.12, BUN 59, K 5.3, Na 143, eGFR 14 NTproBNP 93594 TSH 5.233 05/02/22 Dig 0.7 CBC normal Renal function slightly elevated CR 1.4-1.5 Liver function normal K+ normal A1C 7.0 Testing/Procedures: ECHO 05/07/2024 LVEF 50-55% Moderate LVH Evidence of fluid overload Severe tricuspid regurg Severe pulm HTN, RVSP 85 Mild mitral valve stenosis Mild mitral regurg Severe stenosis of bioprosthetic aortic valve, mild aortic regurg Echocardiogram 10/23/2023: The left ventricle is normal in size and exhibits low normal systolic function. Estimated LVEF is 50 to 55%. The right ventricle is severely dilated and exhibits normal systolic function. Severe biatrial dilatation. 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 Mild aortic regurgitation is seen. Mild to moderate mitral stenosis with mild regurgitation. Severe tricuspid regurgitation. Severely elevated right-sided pressures. Depending on the clinical picture a transesophageal echocardiogram is recommended for further assessment of the valvular lesions. RVSP is 77 mmHg. FARA 12/22/2022: Left Ventricle: The left ventricle is normal size. Global left ventricular systolic function is normal. The EF is 55 % visually. Right Ventricle: There are elevated right sided pressures. The right ventricle is mildly enlarged. Right ventricular systolic function appears normal. Left Atrium: The left atrial appendage has been surgically ligated. The left atrium is severely enlarged. Right Atrium: The right atrium is severely enlarged. Mitral Valve: Mild mitral regurgitation. Moderate mitral valve stenosis. Mitral Valve Measurements MV Vmax: 2.12 m/s. MV PGmean: 7.00 mmHg. Aortic Valve: A 23 mm Trifecta bioprosthetic valve is seen in the aortic position. The prosthetic aortic valve exhibits moderately calcified cusps. Moderate prosthesis stenosis. Aortic Valve Measurements AV PGmean: 17.00 mmHg. AV DVI: 0.22. Tricuspid Valve: Moderate to severe tricuspid regurgitation. Tricuspid Valve Measurements RVSP: 68 mmHg. TR Vmax: 4.04 m/s. ECHO (11/14/2022) LVEF 35-40%. D-shaped septum consistent with RV pressure and/or volume overload Severe biatrial enlargement RV is enlarged with reduced systolic function Significant mitral annular and valvular calcification Bioprosthetic aortic valve is seen with significant calcification and restricted leaflet mobitily 12/20/21 FARA- Left Ventricle: The left ventricle is normal size. Global left ventricular systolic function is normal. The EF is 55 % visually. No regional wall motion abnormality. Right Ventricle: The right ventricle is normal in size. Normal right ventricular systolic function. Doppler studies suggest mildly elevated right sided pressures. Left Atrium: An ZEN stump is present (patient had prior surgical closure). No clot is appreciable in multiple views. The left atrium is severely enlarged. Right Atrium: The right atrium is severely enlarged. Mitral Valve: Mild mitral regurgitation. Mild mitral valve stenosis. Aortic Valve: A bioprosthetic valve is seen in the aortic position with abnormaly high Doppler flows. Tricuspid Valve: Moderate tricuspid regurgitation. Aorta: The aortic root exhibits mild dilatation. The ascending aorta measures 3.60 cm. Right heart catheterization 12/20/2021: RA 10, PA 58/17 mean 34, pulmonary wedge pressure 18 with V waves up to 29, cardiac output 4.12, cardiac index 2.18. Normal coronary angiogram in 2015. Echocardiogram 04/19/2016: Mildly reduced LV EF (45-50%), severe aortic stenosis, moderate aortic, mitral and tricuspid regurgitation, moderate pulmonary hypertension. (mean gradient across the valve is 34 mmHg). Echocardiogram 12/25/2013: LV EF 50%, moderate aortic stenosis and regurgitation. Echocardiogram 11/20/2011: Normal global left ventricular systolic function with moderate left ventricular hypertrophy. Mild biatrial enlargement. Moderate aortic stenosis with mild to moderate aortic regurgitation. Mildly elevated right-sided pressures. Mild tricuspid and mitral regurgitation Cardiac cath in 2009: mild CAD, mildly reduced LV systolic function, mild aortic stenosis, mild mitral regurgitation, elevated LVEDP. Carotid ultrasound 2010: moderate right carotid stenosis. ASSESSMENT/PLAN: Diagnoses and all orders for this visit: Nonrheumatic aortic valve stenosis - Case Request Aircraft Engine Mechanic: Right heart cath, Coronary angiography - Transesophageal echo (FARA); Future S/P aortic valve replacement with bioprosthetic valve - Case Request Aircraft Engine Mechanic: Right heart cath, Coronary angiography - Transesophageal echo (FARA); Future Dyspnea on exertion - Case Request Aircraft Engine Mechanic: Right heart cath, Coronary angiography Chronic combined systolic and diastolic heart failure (CMS/HCC) Permanent atrial fibrillation (CMS/HCC) Nonrheumatic mitral (valve) stenosis Pulmonary hypertension (CMS/HCC) Stage 3a chronic kidney disease (CMS/HCC) #Aortic valve stenosis s/p bioprosthetic aortic valve replacement -Her most recent ECHO done 05/07/2024 showed severe aortic stenosis. Reviewed by Dr. Nova who recommended further evaluation for valve replaced, she likely will valve in valve TAVR. Discussed with patient/family and she is agreeable to proceed. -Will order for a FARA along with RHC and coronary angiogram. #Combined systolic and diastolic heart failure, recovered EF -Low normal EF per 04/2024 ECHO -She currently appears compensated on exam -Severely elevated right sided pressures on recent ECHO. RHC ordered to further assess right sided pressures. -Continue Jardiance, spironolactone, torsemide #Permanent a.fib s/p MAZE procedure and ZEN surgical exclusion -Prior bleeding with coumadin -Continue aspirin 81mg daily and BB #Mitral valve stenosis -Mild per 04/2024 ECHO - continue to monitor #HTN -Controlled #HLD -On atorvastatin Follow up in about 4 weeks (around 06/10/2024). Brent Peralta NP [facility] Cardiovascular Medicine PROGRESS Observed: 05/13/2024 3:20 PM Status: COMPLETED Source: [facility] Cardiovascular Medicine [facility] SUBJECTIVE Chief Complaint Patient presents with [...] c/o chest pain. She was transferred to [facility] for further cardiac care. 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 Mixed anxiety [...] evening meal.), Disp: 60 tablet, Rfl: 0 colchicine 0.6 mg tablet, Take 0.6 mg by mouth if needed., Disp: , Rfl: digoxin (Lanoxin) 125 MCG tablet, Take 125 mcg by mouth every other day., Disp: , Rfl: empagliflozin (Jardiance) 10 mg, Take 1 tablet (10 mg) by mouth in the morning., Disp: 30 tablet, Rfl: 11 escitalopram (Lexapro) 10 mg tablet, Take 1 tablet by mouth in the morning., Disp: , Rfl: gabapentin (Neurontin) 100 mg capsule, take 1 capsule by mouth three times a day, Disp: , Rfl: insulin lispro protamin-lispro (HumaLOG Mix 75-25) 100 unit/mL (75-25) injection, INJECT 15 UNITS SUBCUTANEOUSLY IN THE MORNING AND 10 UNITS IN THE EVENING, Disp: , Rfl: omeprazole (PriLOSEC) [address] capsule, Take 1 capsule by mouth in the morning., Disp: , Rfl: rOPINIRole (Requip) 0.25 mg tablet, TAKE 1 TABLET BY MOUTH ONE TO THREE HOURS BEFORE BEDTIME, Disp: , Rfl: spironolactone (Aldactone) 25 mg tablet, Take 25 mg by mouth in the morning., Disp: , Rfl: torsemide (Demadex) 20 mg tablet, Take 2.5 tablets by mouth in the morning., Disp: , Rfl: levothyroxine (Synthroid, Levoxyl) 50 mcg tablet, Take 50 mcg by mouth before breakfast., Disp: , Rfl: Physical Exam Vitals reviewed. Constitutional: Appearance: Normal appearance. She is normal weight. HENT: Head: Normocephalic and atraumatic. Right Ear: External ear normal. Left Ear: External ear normal. Eyes: Extraocular Movements: Extraocular movements intact. Conjunctiva/sclera: Conjunctivae normal. Pupils: Pupils are equal, round, and reactive to light. Neck: Vascular: No carotid bruit. Cardiovascular: Rate and Rhythm: Normal rate and regular rhythm. Pulses: Normal pulses. Heart sounds: Murmur (systolic, RUSB, 4/6) heard. Pulmonary: Effort: Pulmonary effort is normal. Breath sounds: Normal breath sounds. Abdominal: General: Bowel sounds are normal. Palpations: Abdomen is soft. Musculoskeletal: Cervical back: Neck supple. Right lower leg: No edema. Left lower leg: No edema. Skin: General: Skin is warm and dry. Neurological: General: No focal deficit present. Mental Status: She is alert and oriented to person, place, and time. Psychiatric: Mood and Affect: Mood normal. Behavior: Behavior normal. Thought Content: Thought content normal. Judgment: Judgment normal. Labs: Legacy Encounter on 08/30/2018 Component Date Value Ref Range Status Protime 08/30/2018 16.3 (H) 12.3 - 14.8 sec Final INR 08/30/2018 1.31 (H) 0.91 - 1.16 Final Lab Results Component Value Date BNP 1,567 (H) 08/16/2018 Blood testing 01/03/2024: Potassium 3.5, BUN 42, creatinine 1.85, EGFR 26. Blood testing 11/18/2023: Hemoglobin 9.5, Platelets 214, potassium 3.4, BUN 47, creatinine 1.54, EGFR 32. Blood testing 11/17/2023: high-sensitivity troponin 26.8, NT proBNP 707,627. Blood testing 12/06/2022: Potassium 4.0, BUN 42, creatinine 1.69, digoxin less than 0.2, TSH 2.427. 11/15/2022 Hgb 9.8, plt 186 Cr 2.65, BUN 66, K 3.7, Na 140, eGFR 17, ALT 14, AST 14 NTproBNP 6134 11/13/2022 -Cr 3.12, BUN 59, K 5.3, Na 143, eGFR 14 NTproBNP 11625 TSH 5.233 05/02/22 Dig 0.7 CBC normal Renal function slightly elevated CR 1.4-1.5 Liver function normal K+ normal A1C 7.0 Testing/Procedures: ECHO 05/07/2024 LVEF 50-55% Moderate LVH Evidence of fluid overload Severe tricuspid regurg Severe pulm HTN, RVSP 85 Mild mitral valve stenosis Mild mitral regurg Severe stenosis of bioprosthetic aortic valve, mild aortic regurg Echocardiogram 10/23/2023: The left ventricle is normal in size and exhibits low normal systolic function. Estimated LVEF is 50 to 55%. The right ventricle is severely dilated and exhibits normal systolic function. Severe biatrial dilatation. 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 Mild aortic regurgitation is seen. Mild to moderate mitral stenosis with mild regurgitation. Severe tricuspid regurgitation. Severely elevated right-sided pressures. Depending on the clinical picture a transesophageal echocardiogram is recommended for further assessment of the valvular lesions. RVSP is 77 mmHg. FARA 12/22/2022: Left Ventricle: The left ventricle is normal size. Global left ventricular systolic function is normal. The EF is 55 % visually. Right Ventricle: There are elevated right sided pressures. The right ventricle is mildly enlarged. Right ventricular systolic function appears normal. Left Atrium: The left atrial appendage has been surgically ligated. The left atrium is severely enlarged. Right Atrium: The right atrium is severely enlarged. Mitral Valve: Mild mitral regurgitation. Moderate mitral valve stenosis. Mitral Valve Measurements MV Vmax: 2.12 m/s. MV PGmean: 7.00 mmHg. Aortic Valve: A 23 mm Trifecta bioprosthetic valve is seen in the aortic position. The prosthetic aortic valve exhibits moderately calcified cusps. Moderate prosthesis stenosis. Aortic Valve Measurements AV PGmean: 17.00 mmHg. AV DVI: 0.22. Tricuspid Valve: Moderate to severe tricuspid regurgitation. Tricuspid Valve Measurements RVSP: 68 mmHg. TR Vmax: 4.04 m/s. ECHO (11/14/2022) LVEF 35-40%. D-shaped septum consistent with RV pressure and/or volume overload Severe biatrial enlargement RV is enlarged with reduced systolic function Significant mitral annular and valvular calcification Bioprosthetic aortic valve is seen with significant calcification and restricted leaflet mobitily 12/20/21 FARA- Left Ventricle: The left ventricle is normal size. Global left ventricular systolic function is normal. The EF is 55 % visually. No regional wall motion abnormality. Right Ventricle: The right ventricle is normal in size. Normal right ventricular systolic function. Doppler studies suggest mildly elevated right sided pressures. Left Atrium: An ZEN stump is present (patient had prior surgical closure). No clot is appreciable in multiple views. The left atrium is severely enlarged. Right Atrium: The right atrium is severely enlarged. Mitral Valve: Mild mitral regurgitation. Mild mitral valve stenosis. Aortic Valve: A bioprosthetic valve is seen in the aortic position with abnormaly high Doppler flows. Tricuspid Valve: Moderate tricuspid regurgitation. Aorta: The aortic root exhibits mild dilatation. The ascending aorta measures 3.60 cm. Right heart catheterization 12/20/2021: RA 10, PA 58/17 mean 34, pulmonary wedge pressure 18 with V waves up to 29, cardiac output 4.12, cardiac index 2.18. Normal coronary angiogram in 2016. Echocardiogram 04/19/2016: Mildly reduced LV EF (45-50%), severe aortic stenosis, moderate aortic, mitral and tricuspid regurgitation, moderate pulmonary hypertension. (mean gradient across the valve is 34 mmHg). Echocardiogram 12/25/2013: LV EF 50%, moderate aortic stenosis and regurgitation. Echocardiogram 11/20/2011: Normal global left ventricular systolic function with moderate left ventricular hypertrophy. Mild biatrial enlargement. Moderate aortic stenosis with mild to moderate aortic regurgitation. Mildly elevated right-sided pressures. Mild tricuspid and mitral regurgitation Cardiac cath in 2009: mild CAD, mildly reduced LV systolic function, mild aortic stenosis, mild mitral regurgitation, elevated LVEDP. Carotid ultrasound 2009: moderate right carotid stenosis. ASSESSMENT/PLAN: Diagnoses and all orders for this visit: Nonrheumatic aortic valve stenosis - Case Request Aircraft Engine Mechanic: Right heart cath, Coronary angiography - Transesophageal echo (FARA); Future S/P aortic valve replacement with bioprosthetic valve - Case Request Aircraft Engine Mechanic: Right heart cath, Coronary angiography - Transesophageal echo (FARA); Future Dyspnea on exertion - Case Request Aircraft Engine Mechanic: Right heart cath, Coronary angiography Chronic combined systolic and diastolic heart failure (CMS/HCC) Permanent atrial fibrillation (CMS/HCC) Nonrheumatic mitral (valve) stenosis Pulmonary hypertension (CMS/HCC) Stage 3a chronic kidney disease (CMS/HCC) #Aortic valve stenosis s/p bioprosthetic aortic valve replacement -Her most recent ECHO done 05/07/2024 showed severe aortic stenosis. Reviewed by Dr. Nova who recommended further evaluation for valve replaced, she likely will valve in valve TAVR. Discussed with patient/family and she is agreeable to proceed. -Will order for a FARA along with RHC and coronary angiogram. #Combined systolic and diastolic heart failure, recovered EF -Low normal EF per 04/2024 ECHO -She currently appears compensated on exam -Severely elevated right sided pressures on recent ECHO. RHC ordered to further assess right sided pressures. -Continue Jardiance, spironolactone, torsemide #Permanent a.fib s/p MAZE procedure and ZEN surgical exclusion -Prior bleeding with coumadin -Continue aspirin 81mg daily and BB #Mitral valve stenosis -Mild per 04/2024 ECHO - continue to monitor #HTN -Controlled #HLD -On atorvastatin Follow up in about 4 weeks (around 06/10/2024). Brent Peralta NP [facility] Cardiovascular Medicine STR CARDIAC STRESS/LEXISCAN Observed: 4:06 PM Status: COMPLETED Source: [facility] [address] [address] Cardiac Stress Test Signed Patient: Jenni Quinones MR#: [id number] 0 : 1940 Acct:[id number] Age/Sex: 84 / F ADM Date: 04/25/24 Loc: 4C Room: [address] [place] [address] Type: DIS IN Attending Dr: Javan Gruber MD Copies to: Palmira Lowery MD, [facility] Ingrid Haynes DO Ordering Provider: Ingrid [...] 04/28/24 1507 Dictated By: Palmira Lowery MD, [facility] 04/27/24 1606 Signed By: <Electronically signed by MD KIERSTEN Lowery> 05/01/24 1218 NM LISYS PERF SPECT REST STR Observed: 4:14 PM Status: COMPLETED Source: [facility] [address] [address] Nuclear Medicine Report Signed Patient: Jenni Quinones MR#: [id number] 0 : 1940 Acct:[id number] Age/Sex: 84 / F ADM Date: 04/25/24 Loc: 4C Room: 2D5693-0 Type: DIS IN Attending Dr: Javan Gruber MD Copies to: MD Palmira Marx MD, [facility] Ingrid Haynes DO Ordering Provider: Ingrid [...] NTS 04/25/241952 Dictated By: Palmira Lowery MD, [facility] 04/25/24 1614 Signed By: <Electronically signed by [facility] Palmira Lowery> 05/01/24 1218 GLUCOSE POCT GLUCOMETERS Collected: 04/25/2024 11:51 AM Status: F Source: [facility] TYPE CODE TESTS RESULT OUT OF RANGE REFERENCE UNITS LAB GLUPOC Glucose Poc Glucometers 108 mg/dL Result Comment: Random Gluco se Reference Range is dependent on time and content of last meal. Glucose of more than 200 mg/dL in a nonstressed, ambulatory subject supports the diagnosis of Diabetes Mellitus. LAB COMM1 Commemt1 Glu2: Cleaned Meter Result Comment: PERFORMED BY : [facility] [address] [place] [address] PATHOLOGIST TAX ASSISTANT ALVARO LEWIS M.D. Performed By: #### GLULS ### # Point of Care testing , ECH ECHO TRANSTHORACIC Observed: 024 8:26 AM Status: COMPLETED Source: [facility] [place] [address] [place] [address] Echocardiogram Signed Patient: Jenni Quinones MR#: [id number] 0 : 1940 Acct:[id number] Age/Sex: 84 / F ADM Date: 04/25/24 Loc: Room: [address] [place] [address] Type: DIS IN Attending Dr: Javan Gruber MD Ordering Provider: Lalo Carter DO Date of Service: 04/25/24 ECH/ECH echo transthoracic: history of aortic insufficiency. Copies to: Palmira Lowery MD, [facility] Lalo Carter DO Weight: 166 lb [...] 3.0 mmHg LV V1 VTI: 29.4 cm Transcribed By: SCV Performed At: 04/25/24 0826 Signed By: Palmira Lowery MD, [facility] 04/25/[address] ANGIO CHEST PE PROTOCOL Observed: 8:06 AM Status: COMPLETED Source: [facility] [place] [address] [place] [address] CT Scan Report Signed Patient: Jenni Quinones MR#: [id number] 0 : 1940 Acct:[id number] Age/Sex: 84 / F ADM Date: 04/25/24 Loc: Room: [address] [place] [address] Type: ADM IN Attending Dr: Lalo Carter [...] Rosina Levin M.D.04/25/2024 8:30 AM Dictation Location: [place] [address] Transcribed By: [facility] 04/25/24829 Dictated By: Rosina Levin MD 04/25/24805 Signed By: <Electronically signed by MD Rosina Levin in OV> 04/25/24829 ECG 12 LEAD ECG Observed: 04/25/2024 7:32 AM Status: COMPLETED Source: [facility] [place] [address] Electrocardiograph Report Signed Patient: Jenni Quinones MR#: [id number] 0 : 1940 Acct:[id number] Age/Sex: 84 / F ADM Date: 04/25/24 Loc: Room: [address] [place] [address] Type: DIS IN Attending Dr: Javan Gruber [...] ECG No previous ECGs available Confirmed by PALMIRA LOWERY MD, FACC ([id number]) on 04/25/2024 5:26:27 PM Referred By: Electronically Signed By: PALMIRA LOWERY MD, FACC Transcribed By: MUS Signed By Palmira Lowery MD, [facility] 04/25/24 1726 TROPONIN I HIGH SENSITIVITY Collected: 04/25/2024 5:5 3 AM Status: F Source: [facility] TYPE CODE TESTS RESULT OUT OF RANGE REFERENCE UNITS LAB HS TROP Troponin I High Sensitivity 18.1 High 0.0-15.0 pg/mL Result Comment: PERFORMED BY : [place] [address] PATHOLOGIST TAX ASSISTANT ALVARO LEWIS M.D. Performed By: #### HS TROP # ### [address] HEPATIC PANEL Collected: 04/25/2024 3:44 AM Status: F Source: [facility] Order Comment: FASTING Y TYPE CODE TESTS RESULT OUT OF RANGE REFERENCE UNITS LAB TP Total Protein 6.4 Normal 6.4-8.9 g/dL LAB ALB Albumin Level 3.1 Low 3.5-5.7 g/dL LAB GLOB Globulin 3.3 g/dL LAB AGRATIO Albumin/Globulin Ratio 0.9 LAB BILIT Bilirubin,Total 0.5 Normal 0.3-1.0 mg/dL LAB BILID Bilirubin,Direct 0.10 Normal 0.03-0.18 mg/dL LAB BILII Bilirubin,Indirect 0.4 mg/dL LAB AST Aspartate Amino Transferase 13 Normal 13-39 U/L LAB ALT Alanine Aminotransferase 7 Normal 7-52 U/L LAB ALP Alkaline Phosphatase 78 Normal 34-104 U/L Performed By: #### MG, LIPID , A1C WTH eA, BMP, HEPATIC #### [address] BASIC METABOLIC PANEL Collected: 04/25/2024 3:44 AM Status: F Source: [facility] Order Comment: FASTING Y TYPE CODE TESTS RESULT OUT OF RANGE REFERENCE UNITS LAB GLU Glucose 121 High 70-100 mg/dL Result Comment: Random Gluco se Reference Range is dependent on time and content of last meal. Glucose of more than 200 mg/dL in a nonstressed, ambulatory subject supports the diagnosis of Diabetes Mellitus. ADA recommended reference range LAB BUN Blood Urea Nitrogen 31 High 7-25 mg/dL LAB CREATT Creatinine 1.20 Normal 0.60-1.20 mg/dL LAB GFReNR Estimated GFR 44.359 LAB NA Sodium 138 Normal 136-145 mmol/L LAB K Potassium 5.2 High 3.5-5.1 mmol/L LAB CL Chloride 102 Normal 98-107 mmol/L LAB CO2 Carbon Dioxide 30.3 Normal 21.0-31.0 mmol/L LAB GAP Anion Gap 10.9 Normal 6.0-15.0 LAB CA Calcium 8.4 Low 8.6-10.3 mg/dL LAB CRCLPHA Creatinine Clr Calc Pharmacy 32.54 Performed By: #### MG, LIPID , A1C WT eA, BMP, HEPATIC #### [facility] [address] [place] [id number] [facility] MAGNESIUM Collected: 3:44 AM Status: F Source: [facility] Order Comment: FASTING Y TYPE CODE TESTS RESULT OUT OF RANGE REFERENCE UNITS LAB MG Magnesium 2.1 Normal 1.9-2.7 mg/dL Performed By: #### MG, LIPID , A1C WT eA, BMP, HEPATIC #### [facility] [address] [place] [id number] [facility] LIPID PANEL Collected: 04/25/2024 3:44 AM Status: F Source: [facility] Order Comment: FASTING Y TYPE CODE TESTS RESULT OUT OF RANGE REFERENCE UNITS LAB CHOL Cholesterol 88 Low 140-200 mg/dL Result Comment: Chol less th an 200 mg/dl low risk Chol 201-239 mg/dl borderline risk Chol 240 mg/dl and greater high risk LAB HDL HDL Cholesterol 34 Normal 23-92 mg/dL Result Comment: HDL CHOL ATP -III CLASSIFICATION Cardiovascular Risk HDL > or equal to 60 mg/dL LOW HDL < 40 mg/dL HIGH LAB TRIG W REF Triglyceride w/Reflex 92 Normal 0-149 mg/dL Result Comment: TRIG ATP III CLASSIFICATION TRIG less than 150 mg/dL Normal TRIG 150-199 mg/dL Borderline high TRIG 200-500 mg/dL High TRIG greater than 500 mg/dL Very high Standard traceable to the Center for Disease Conrtrol and Prevention (CDC) test method. LAB LDLC LDL Cholesterol,Calc ulated 36 Normal 0-100 mg/dL Result Comment: LDL ATP III CLASSIFICATION LDL less than 100 mg/dL Optimal LDL 100-129 mg/dL Near or above optimal LDL 130-159 mg/dL Borderline high LDL 160-189 mg/dL High LDL greater than 189 mg/dL Very high LAB VLDL VLDL CHOLESTEROL 18 mg/dL LAB CHLHDL Chol/HDL Ratio 2.6 <5.0 Result Comment: PERFORMED BY : [place] [address] PATHOLOGIST TAX ASSISTANT ALVARO LEWIS M.D. Performed By: #### MG, LIPID , A1C WTH eA, BMP, HEPATIC #### [facility] [address] [place] [id number] [facility] A1C WITH ESTIMATED AVERAGE GLU Collected: 04/25/2024 3:44 AM Status: F Source: [facility] TYPE CODE TESTS RESULT OUT OF RANGE REFERENCE UNITS LAB .A1C Hemoglobin A1C 7.6 High 4.3-5.6 % Result Comment: Increased ri sk for diabetes: 5.7 - 6.4 diabetes: >6.4 glycemic control for adults with diabetes: <7.0 LAB eAG Estimated Average Glucose 171 mg/dL Result Comment: PERFORMED BY : [place] [address] PATHOLOGIST TAX ASSISTANT ALVARO LEWIS M.D. Performed By: #### MG, LIPID , A1C WTH eA, BMP, HEPATIC #### [facility] [address] COMPLETE BLOOD COUNT AUTO DIFF Collected: 04/25/2024 3:44 AM Status: F Source: [facility] TYPE CODE TESTS RESULT OUT OF RANGE REFERENCE UNITS LAB WBC White Blood Count 8.9 Normal 3.8-11.6 10*3/uL LAB UNWBC Uncorrected WBC 8.9 Normal 3.8-11.6 10*3/uL LAB RBC Red Blood Count 3.18 Low 3.60-5.00 LAB HGB Hemoglobin 9.4 Low 11.8-15.4 g/dL LAB HCT Hematocrit 28.8 Low 34.0-46.4 % LAB MCV Mean Corpuscular Volume 90.6 Normal 80-100 fL LAB MCH Mean Corpuscular Hemoglobin 29.7 Normal 24.7-34.3 pg LAB MCHC Mean Corpuscular HGB Conc 32.8 Normal 32.0-35.0 g/dL LAB RDW Red Cell Distribution Width 18.3 High 11.9-15.3 % LAB PLT Platelet Count 273 Normal 150-450 10*3/uL LAB MPV Mean Platelet Volume 8.0 Normal 6.3-10.7 fL LAB NE% Neutrophils % (Auto) 79.6 . % LAB LY% Lymphocytes % (Auto) 8.0 . % LAB MO% Monocytes % (Auto) 8.7 . % LAB EO% Eosinophils % (Auto) 2.9 . % LAB BA% Basophils % (Auto) 0.8 . % LAB NRBC% NRBC% 0.1 Normal 0-0.5 /100{WBC} LAB NE# Neutrophils # (Auto) 7.1 Normal 1.8-7.7 10*3/uL LAB LY# Lymphocytes # (Auto) 0.7 Low 1.00-4.8 10*3/uL LAB MO# Monocytes # (Auto) 0.8 Normal 0.0-0.8 10*3/uL LAB EO# Eosinophils # (Auto) 0.3 Normal 0.0-0.45 10*3/uL LAB BA# Basophils # (Auto) 0.1 Normal 0.0-0.2 10*3/uL Result Comment: PERFORMED BY : [place] [address] PATHOLOGIST TAX ASSISTANT ALVARO LEWIS M.D. Performed By: #### PTT, CBC, PT, HS TROP #### [address] TROPONIN I HIGH SENSITIVITY Collected: 04/25/2024 3:4 4 AM Status: F Source: [facility] TYPE CODE TESTS RESULT OUT OF RANGE REFERENCE UNITS LAB HS TROP Troponin I High Sensitivity 19.5 High 0.0-15.0 pg/mL Result Comment: PERFORMED BY : [place] [address] PATHOLOGIST TAX ASSISTANT ALVARO LEWIS M.D. Performed By: #### PTT, CBC, PT, HS TROP #### [facility] [address] [place], [place] [id number] [facility] PROTHROMBIN TIME INR Collected: 04/25/2024 3:44 AM S tatus: F Source: [facility] TYPE CODE TESTS RESULT OUT OF RANGE REFERENCE UNITS LAB R PT Prothrombin Time 12.9 Normal 9.0-12.9 s Result Comment: A hematocrit value greater than 55% may lead to inaccurate results in coagulation testing. Patients having hematocrit values >55% require a special collection tube for coagulation studies. Please contact the laboratory at [phone] for redraw instructions. LAB INR INR 1.1 Result Comment: INR Therapeu tic Range A) Pre- and Peroperative OAT started [...] valves: 3 - 4.5 Performed By: #### PTT, CBC, PT, HS TROP #### [facility] [address] [place], [place] [id number] [facility] PARTIAL THROMBOPLASTIN TIME Collected: 04/25/2024 3:4 4 AM Status: F Source: [facility] TYPE CODE TESTS RESULT OUT OF RANGE REFERENCE UNITS LAB PTT Partial Thromboplastin Time 30.0 Normal 25.1-36.5 s Result Comment: A hematocrit value greater than 55% may lead to inaccurate results in coagulation testing. Patients having hematocrit values >55% require a special collection tube for coagulation studies. Please contact the laboratory at [phone] for redraw instructions. PERFORMED BY: [place] [id number] PATHOLOGIST TAX ASSISTANT ALVARO LEWIS M.D. Performed By: #### PTT, CBC, PT, HS TROP #### [facility] [address] [place], [place] [id number] [facility] OFFICE VISIT Observed: 01/07/2024 2:00 PM Status: COMPLETED Source: [facility] [id number] Jenni Quinones [birth year] F Date Provider Department Center 01/07/2024 JOSEFINA STEIN Family History Problem Relation Age of Onset Diabetes Father Heart failure Father Other Other Family Status - Relation Status Age at Father Other Level of Service:[address] [place] OFFICE/OUTPATIENT ESTABLISHED MOD MDM 30 MIN PROGRESS Observed: 01/07/2024 2:00 PM Status: COMPLETED Source: [facility] Cardiology - [facility] Subjective Jenni Quinones is a 83 y.o. 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 She is a [...] She has history of prior admissions to [facility] with AF/RVR and diastolic heart [...] she feels good. Review of Systems Constitutional: Positive for weight loss (6# since 12/07/2023). Cardiovascular: Positive for palpitations (improving). Hematologic/Lymphatic: Bruises/bleeds easily. Musculoskeletal: Positive for arthritis, back pain and muscle weakness. Neurological: Positive for focal weakness, light-headedness, loss of balance, numbness and weakness. All other systems reviewed and are negative. Objective Visit Vitals BP 144/78 (BP Location: Right arm, Patient Position: Sitting) Pulse 58 Ht 1.575 m (5' 2 ) Wt 66.7 kg (147 lb) SpO2 95% BMI 26.89 kg/m??? OB Status Postmenopausal Smoking Status Former BSA 1.71 m??? Physical Exam Constitutional: Appearance: She is [...] or rales. Chest: Chest wall: No tenderness. Abdominal: General: Bowel sounds are normal. There is no distension. Palpations: Abdomen is soft. Tenderness: There is no abdominal tenderness. Musculoskeletal: General: No swelling. Cervical back: Neck supple. Right lower leg: No edema. Left lower leg: No edema. Skin: General: Skin is warm and dry. Neurological: General: No focal deficit present. Mental Status: She is alert and oriented to person, place, and time. Psychiatric: Mood and Affect: Mood normal. Behavior: Behavior is cooperative. Judgment: Judgment normal. Allergies Allergies Allergen Reactions Codeine Entresto [Sacubitril-Valsartan] Penicillins Other Medications Current Outpatient Medications: aspirin 81 mg EC [...] by mouth with breakfast and with evening meal., Disp: 60 tablet, Rfl: 0 colchicine 0.6 mg tablet, Take 0.6 mg by mouth in the morning., Disp: , Rfl: digoxin (Lanoxin) 125 MCG tablet, Take 125 mcg by mouth every other day., Disp: , Rfl: empagliflozin (Jardiance) 10 mg, Take 1 tablet (10 mg) by mouth in the morning., Disp: 30 tablet, Rfl: 11 escitalopram (Lexapro) 10 mg tablet, Take 1 tablet by mouth in the morning., Disp: , Rfl: gabapentin (Neurontin) 100 mg capsule, take 1 capsule by mouth three times a day, Disp: , Rfl: HYDROcodone-acetaminophen (Barton) 5-325 mg tablet, Take 1 tablet by mouth., Disp: , Rfl: levothyroxine (Synthroid, Levoxyl) 50 mcg tablet, Take 50 mcg by mouth before breakfast., Disp: , Rfl: omeprazole (PriLOSEC) [address] capsule, Take 1 capsule by mouth in the morning., Disp: , Rfl: rOPINIRole (Requip) 0.25 mg tablet, TAKE 1 TABLET BY MOUTH ONE TO THREE HOURS BEFORE BEDTIME, Disp: , Rfl: spironolactone (Aldactone) 25 mg tablet, Take 25 mg by mouth in the morning., Disp: , Rfl: torsemide (Demadex) 20 mg tablet, Take 2.5 tablets by mouth in the morning., Disp: , Rfl: insulin lispro protamin-lispro (HumaLOG Mix 75-25) 100 unit/mL (75-25) injection, INJECT 15 UNITS SUBCUTANEOUSLY IN THE MORNING AND 10 UNITS IN THE EVENING, Disp: , Rfl: Recent Labs No visits with results within 6 Month(s) from this visit. Latest known visit with results is: [facility] Encounter on 08/30/2018 Component Date Value Protime 08/30/2018 16.3 (H) INR 08/30/2018 1.31 (H) Blood testing 01/03/2024: Potassium 3.5, BUN 42, creatinine 1.85, EGFR 26. Blood testing 11/18/2023: Hemoglobin 9.5, Platelets 214, potassium 3.4, BUN 47, creatinine 1.54, EGFR 32. Blood testing 11/17/2023: high-sensitivity troponin 26.8, NT proBNP 707,627. Blood testing 12/06/2022: Potassium 4.0, BUN 42, creatinine 1.69, digoxin less than 0.2, TSH 2.427. 11/15/2022 Hgb 9.8, plt 186 Cr 2.65, BUN 66, K 3.7, Na 140, eGFR 17, ALT 14, AST 14 NTproBNP 6134 11/13/2022 -Cr 3.12, BUN 59, K 5.3, Na 143, eGFR 14 NTproBNP 22121 TSH 5.233 05/02/22 Dig 0.7 CBC normal Renal function slightly elevated CR 1.4-1.5 Liver function normal K+ normal A1C 7.0 Imaging and other tests Echocardiogram 10/23/2023: The left ventricle is normal in size and exhibits low normal systolic function. Estimated LVEF is 50 to 55%. The right ventricle is severely dilated and exhibits normal systolic function. Severe biatrial dilatation. 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 Mild aortic regurgitation is seen. Mild to moderate mitral stenosis with mild regurgitation. Severe tricuspid regurgitation. Severely elevated right-sided pressures. Depending on the clinical picture a transesophageal echocardiogram is recommended for further assessment of the valvular lesions. RVSP is 77 mmHg. FARA 12/22/2022: Left Ventricle: The left ventricle is normal size. Global left ventricular systolic function is normal. The EF is 55 % visually. Right Ventricle: There are elevated right sided pressures. The right ventricle is mildly enlarged. Right ventricular systolic function appears normal. Left Atrium: The left atrial appendage has been surgically ligated. The left atrium is severely enlarged. Right Atrium: The right atrium is severely enlarged. Mitral Valve: Mild mitral regurgitation. Moderate mitral valve stenosis. Mitral Valve Measurements MV Vmax: 2.12 m/s. MV PGmean: 7.00 mmHg. Aortic Valve: A 23 mm Trifecta bioprosthetic valve is seen in the aortic position. The prosthetic aortic valve exhibits moderately calcified cusps. Moderate prosthesis stenosis. Aortic Valve Measurements AV PGmean: 17.00 mmHg. AV DVI: 0.22. Tricuspid Valve: Moderate to severe tricuspid regurgitation. Tricuspid Valve Measurements RVSP: 68 mmHg. TR Vmax: 4.04 m/s. ECHO (11/14/2022) LVEF 35-40%. D-shaped septum consistent with RV pressure and/or volume overload Severe biatrial enlargement RV is enlarged with reduced systolic function Significant mitral annular and valvular calcification Bioprosthetic aortic valve is seen with significant calcification and restricted leaflet mobitily 12/20/21 FARA- Left Ventricle: The left ventricle is normal size. Global left ventricular systolic function is normal. The EF is 55 % visually. No regional wall motion abnormality. Right Ventricle: The right ventricle is normal in size. Normal right ventricular systolic function. Doppler studies suggest mildly elevated right sided pressures. Left Atrium: An ZEN stump is present (patient had prior surgical closure). No clot is appreciable in multiple views. The left atrium is severely enlarged. Right Atrium: The right atrium is severely enlarged. Mitral Valve: Mild mitral regurgitation. Mild mitral valve stenosis. Aortic Valve: A bioprosthetic valve is seen in the aortic position with abnormaly high Doppler flows. Tricuspid Valve: Moderate tricuspid regurgitation. Aorta: The aortic root exhibits mild dilatation. The ascending aorta measures 3.60 cm. Right heart catheterization 12/20/2021: RA 10, PA 58/17 mean 34, pulmonary wedge pressure 18 with V waves up to 29, cardiac output 4.12, cardiac index 2.18. Normal coronary angiogram in 2015. Echocardiogram 04/19/2016: Mildly reduced LV EF (45-50%), severe aortic stenosis, moderate aortic, mitral and tricuspid regurgitation, moderate pulmonary hypertension. (mean gradient across the valve is 34 mmHg). Echocardiogram 12/25/2013: LV EF 50%, moderate aortic stenosis and regurgitation. Echocardiogram 11/20/2011: Normal global left ventricular systolic function with moderate left ventricular hypertrophy. Mild biatrial enlargement. Moderate aortic stenosis with mild to moderate aortic regurgitation. Mildly elevated right-sided pressures. Mild tricuspid and mitral regurgitation Cardiac cath in 2009: mild CAD, mildly reduced LV systolic function, mild aortic stenosis, mild mitral regurgitation, elevated LVEDP. Carotid ultrasound 2009: moderate right carotid stenosis. Assessment/Plan Diagnoses and all orders for this visit: Chronic diastolic heart failure (CMS/HCC) - Transthoracic echo (TTE) complete; Future - Basic metabolic panel; Future - Pro-BNP; Future Permanent atrial fibrillation (CMS/HCC) - Digoxin level; Future S/P aortic valve replacement with bioprosthetic valve Nonrheumatic mitral (valve) stenosis Pulmonary hypertension (CMS/HCC) - Transthoracic echo (TTE) complete; Future 1. Aortic valve stenosis status post bioprosthetic aortic valve replacement in 2016: prior FARA showed that the aortic valve had elevated flows with a mean gradient of 17 mmHg. Her echocardiogram in October 2023 showed similar findings. This will can be monitored in the future. At this time does not need intervention. She needs endocarditis prophylaxis prior to dental procedures. She is allergic to penicillin. I previously prescribed azithromycin. 2. Mitral valve stenosis: This is moderate by prior transesophageal echocardiogram. 3. Diastolic heart failure: Chronic, Continue current diuretic therapy, including torsemide, spironolactone and Jardiance. At this time she appears to be in good volume status. I will not make changes. 4. Permanent atrial fibrillation: Not on anticoagulation due to prior bleeding with Coumadin. She is status post surgical exclusion of the left atrial appendage. Continue aspirin 81 mg daily. Change digoxin to every other day due to renal dysfunction. I will check BMP, Digoxin and BNP in 3 months. I will also repeat the echocardiogram in 3 months to follow-up on her valvular function as well as her pulmonary hypertension. Follow up in about 3 months (around 04/08/2024). Josefina Nova MD PROGRESS Observed: 12/07/2023 3:54 PM Status: COMPLETED Source: [facility] Recently admitted overnight at [facility] for Acute HFrEF and palpitations [...] function and electrolytes and she voiced understanding. [facility] II-III Pt is close to euvolemia via assessment today PROGRESS Observed: 12/07/2023 3:51 PM Status: COMPLETED Source: [facility] aortic valve replacement wit h a 23 mm trifecta tissue valve: 2016 Elevated doppler flows noted and severe AO stenosis- will repeat TTE a 6 months to re-evalaute. RTC with Dr Nova D/W pt about red flag symptoms to call 911 and/or office- increased SOB, Palpitations, syncope, chest pain or any concerns and she voiced understanding Continue all medications as prescribed PROGRESS Observed: 12/07/2023 3:49 PM Status: COMPLETED Source: [facility] Repeat TTE in 6 months Pt denied any worsening symptoms since DC from [facility] and diuresis PROGRESS Observed: 12/07/2023 3:49 PM Status: COMPLETED Source: [facility] Stable, will monitor with ro utine echocardiogram in 6 months OFFICE VISIT Observed: 12/07/2023 2:20 PM Status: COMPLETED Source: [facility] [id number] Jenni Quinones [birth year] F Date Provider Department Center 12/07/2023 [facility] Family History Problem Relation Age of Onset Diabetes Father Heart failure Father Other Other Family Status - Relation Status Age at Father Other Level of Service:84047 [place] OFFICE/OUTPATIENT ESTABLISHED MOD MDM 30 MIN PROGRESS Observed: 12/07/2023 2:20 PM Status: COMPLETED Source: [facility] PROGRESS NOTE HPI: Jenni Quinones is a 83 y.o. female here for routine f/U and review of TTE and ED f/U Patient here for 6 mo follow up aortic and mitral valve stenosis, diastolic heart failure, and permanent afib. She had an echo last month. She presented to [facility] ED a few weeks ago [...] She has history of prior admissions to [facility] with AF/RVR and diastolic heart failure decompensation. She has normal coronary angiogram in 2016. Patient here for 6 mo follow up aortic and mitral valve stenosis, diastolic heart failure, and permanent afib. She had an echo last month. She presented to [facility] ED a few weeks ago [...] initiated. Patient agrees this plan. Emergency Department [facility] 5 Patient name: JENNI QUINONES Laboratory [...] has new requirement of 2L O2 by [place]. Case discussed with hospitalist who agreed to [...] She has history of prior admissions to [facility] with AF/RVR and diastolic heart [...] II-III along with mild lower extremity edema. Visit Vitals BP 144/78 (BP Location: Left arm, Patient Position: Sitting) Pulse 76 Ht 1.575 m (5' 2 ) Wt 69.4 kg (153 lb) SpO2 95% BMI 27.98 kg/m??? OB Status Postmenopausal Smoking Status Former BSA 1.74 m??? Allergies Allergen Reactions Codeine Entresto [Sacubitril-Valsartan] Penicillins Other Medications: Current Outpatient Medications on File Prior to Visit Medication Sig Dispense Refill aspirin 81 mg EC tablet Take 81 [...] mg tablet Take 0.6 mg by mouth in the morning. digoxin (Lanoxin) 125 MCG tablet Take 125 mcg by mouth every other day. escitalopram (Lexapro) 10 mg tablet Take 1 tablet by mouth in the morning. insulin lispro protamin-lispro (HumaLOG Mix 75-25) 100 unit/mL (75-25) injection INJECT 15 UNITS SUBCUTANEOUSLY IN THE MORNING AND 10 UNITS IN THE EVENING omeprazole (PriLOSEC) [address] capsule Take 1 capsule by mouth in the morning. rOPINIRole (Requip) 0.25 mg tablet TAKE 1 TABLET BY MOUTH ONE TO THREE HOURS BEFORE BEDTIME spironolactone (Aldactone) 25 mg tablet Take 25 mg by mouth in the morning. torsemide (Demadex) 20 mg tablet Take 50 tablets by mouth in the morning. gabapentin (Neurontin) 100 mg capsule take 1 capsule by mouth three times a day HYDROcodone-acetaminophen (Barton) 5-325 mg tablet Take 1 tablet by mouth. levothyroxine (Synthroid, Levoxyl) 50 mcg tablet Take 50 mcg by mouth before breakfast. [DISCONTINUED] ALPRAZolam (Xanax) 0.25 mg tablet take 1 tablet by mouth every 6 to 8 hours-15 DAY SUPPLY No current facility-administered medications on file prior to visit. Physical Exam: Constitutional: Appearance: Normal appearance. Without apparent distress, chronically ill HENT: Head: Normocephalic and atraumatic. Nose: Nose normal. Mouth/Throat: Mouth: Mucous membranes are moist. Eyes: Extraocular Movements: Extraocular movements intact. Conjunctiva/sclera: Conjunctivae normal. Neck: Vascular: No JVD. Cardiovascular: Rate and Rhythm: Normal rate and regular rhythm. Pulses: Dorsalis pedis pulses are 2 on the right side and 2on the left side. Posterior tibial pulses are 2 on the right side and 2 on the left side. Heart sounds: Systolic murmur RUSB 3/6 with radiation to carotid, S1 normal and S2 normal. Pulmonary: Effort: Pulmonary effort is normal. Breath sounds: Normal breath sounds. Abdominal: General: Bowel sounds are normal. Palpations: Abdomen is soft. Musculoskeletal: General: Normal range of motion. Cervical back: Normal range of motion. Right lower leg: trace edema. Left lower leg: trace edema. Skin: General: Skin is warm and dry. Capillary Refill: Capillary refill takes less than 2 seconds. Neurological: General: No focal deficit present. Mental Status: She is alert and oriented to person, place, and time. Psychiatric: Mood and Affect: Mood normal. Behavior: Behavior normal. Thought Content: Thought content normal. Judgment: Judgment normal. Labs: 11/18/23 CBC HGB stable for her/ remains low PLT stable 214 Renal function elevated, stable and slightly improved NA 141, K+ 3.7 and 3.4, renal function remains elevated but stable for her Liver function normal Pro BNP 11/17/23= 7627-elevated TSH elevated 4.041 Blood testing 12/06/2022: Potassium 4.0, BUN 42, creatinine 1.69, digoxin less than 0.2, TSH 2.427. 11/15/2022 Hgb 9.8, plt 186 Cr 2.65, BUN 66, K 3.7, Na 140, eGFR 17, ALT 14, AST 14 NTproBNP 6134 11/13/2022 -Cr 3.12, BUN 59, K 5.3, Na 143, eGFR 14 NTproBNP 95385 TSH 5.233 05/02/22 Dig 0.7 CBC normal Renal function slightly elevated CR 1.4-1.5 Liver function normal K+ normal A1C 7.0 Last lab values have been reviewed CV Testing: Chest X-Ray 11/17/23 11:36 IMPRESSION: Focal density left lung base corresponding to the density seen on chest CT 03/02/2023, new from chest x-ray 11/13/2022. Question recurrent inflammatory process, neoplasm or round atelectasis.. Consider follow-up chest CT. Other findings appear chronic and unchanged. Airspace density noted right lung base on chest CT 03/02/2023 not visualized. Electronically authenticated by: JARON PARKER Date: 11/17/2023 13:03 10/23/23 TTE LVSF normal EF 50-55% RV severely dilated and normal systolic function Severe Biatrial dilitation Bioprosthetic AO valve with abnormal doppler flows consistent with at least Moderate stenosis. Mild AO regurg Mild to mod MV stenosis with mild MR Severe TV regurg Severely elevated Rt Sided pressures= RVSP- 77 FARA 12/22/2022: Left Ventricle: The left ventricle is normal size. Global left ventricular systolic function is normal. The EF is 55 % visually. Right Ventricle: There are elevated right sided pressures. The right ventricle is mildly enlarged. Right ventricular systolic function appears normal. Left Atrium: The left atrial appendage has been surgically ligated. The left atrium is severely enlarged. Right Atrium: The right atrium is severely enlarged. Mitral Valve: Mild mitral regurgitation. Moderate mitral valve stenosis. Mitral Valve Measurements MV Vmax: 2.12 m/s. MV PGmean: 7.00 mmHg. Aortic Valve: A 23 mm Trifecta bioprosthetic valve is seen in the aortic position. The prosthetic aortic valve exhibits moderately calcified cusps. Moderate prosthesis stenosis. Aortic Valve Measurements AV PGmean: 17.00 mmHg. AV DVI: 0.22. Tricuspid Valve: Moderate to severe tricuspid regurgitation. Tricuspid Valve Measurements RVSP: 68 mmHg. TR Vmax: 4.04 m/s. ECHO (11/14/2022) LVEF 35-40%. D-shaped septum consistent with RV pressure and/or volume overload Severe biatrial enlargement RV is enlarged with reduced systolic function Significant mitral annular and valvular calcification Bioprosthetic aortic valve is seen with significant calcification and restricted leaflet mobitily 12/20/21 FARA- Left Ventricle: The left ventricle is normal size. Global left ventricular systolic function is normal. The EF is 55 % visually. No regional wall motion abnormality. Right Ventricle: The right ventricle is normal in size. Normal right ventricular systolic function. Doppler studies suggest mildly elevated right sided pressures. Left Atrium: An ZEN stump is present (patient had prior surgical closure). No clot is appreciable in multiple views. The left atrium is severely enlarged. Right Atrium: The right atrium is severely enlarged. Mitral Valve: Mild mitral regurgitation. Mild mitral valve stenosis. Aortic Valve: A bioprosthetic valve is seen in the aortic position with abnormaly high Doppler flows. Tricuspid Valve: Moderate tricuspid regurgitation. Aorta: The aortic root exhibits mild dilatation. The ascending aorta measures 3.60 cm. Right heart catheterization 12/20/2021: RA 10, PA 58/17 mean 34, pulmonary wedge pressure 18 with V waves up to 29, cardiac output 4.12, cardiac index 2.18. Normal coronary angiogram in 2016. Echocardiogram 04/19/2016: Mildly reduced LV EF (45-50%), severe aortic stenosis, moderate aortic, mitral and tricuspid regurgitation, moderate pulmonary hypertension. (mean gradient across the valve is 34 mmHg). Echocardiogram 12/25/2013: LV EF 50%, moderate aortic stenosis and regurgitation. Echocardiogram 11/20/2011: Normal global left ventricular systolic function with moderate left ventricular hypertrophy. Mild biatrial enlargement. Moderate aortic stenosis with mild to moderate aortic regurgitation. Mildly elevated right-sided pressures. Mild tricuspid and mitral regurgitation Cardiac cath in 2010: mild CAD, mildly reduced LV systolic function, mild aortic stenosis, mild mitral regurgitation, elevated LVEDP. Carotid ultrasound 2009: moderate right carotid stenosis. Assessment/Plan: S/P aortic valve replacement with bioprosthetic valve Continue to monitor AO valve with repeat TTE in 6 months Rheumatic mitral valve disease Stable, will monitor with routine echocardiogram in 6 months Pulmonary hypertension (CMS/HCC) Repeat TTE in 6 months Pt denied any worsening symptoms since DC from [facility] and diuresis Aortic valve disorder aortic valve replacement with a 23 mm trifecta tissue valve: 2015 Elevated doppler flows noted and severe AO stenosis- will repeat TTE a 6 months to re-evalaute. RTC with Dr Nova D/W pt about red flag symptoms to call 911 and/or office- increased SOB, Palpitations, syncope, chest pain or any concerns and she voiced understanding Continue all medications as prescribed Acute on chronic systolic heart failure (CMS/HCC) Recently admitted overnight at [facility] for Acute HFrEF and palpitations [...] function and electrolytes and she voiced understanding. [facility] II-III Pt is close to euvolemia via assessment today RTC 1 month or earlier if needed 37 Observed: 12/07/2023 2:20 PM Status: COMPLETED Source: [facility] Have blood drawn in 1-2 week please [...] taller/more pillows than normal or in recliner. PROGRESS Observed: 12/07/2023 2:20 PM Status: COMPLETED Source: [facility] Patient here for 6 mo follow up aortic and mitral valve stenosis, diastolic heart failure, and permanent afib. She had an echo last month. She presented to [facility] ED a few weeks ago [...] All other systems reviewed and are negative. PROGRESS Observed: 12/07/2023 1:07 PM Status: COMPLETED Source: [facility] Continue to monitor AO valve with repeat TTE in 6 months ALLERGIES DATE TYPE / CODE NAME / CODE REACTION SEVERITY SOURCE 06/07/2022 DRUG/[id number] 03(SNOMED CT) SACUBITRIL-VALSART AN Other [facility] 03/11/2022 DRUG INGREDI/4195 40504(SNOMED CT) CODEINE (Inactive) GI intolerance [facility] 06/26/2014 Drug Class/709566 003(SNOMED CT) PENICILLINS Rash Low [facility] ENCOUNTERS ADMIT/DISCHARGE ACCOUNT NUMBER ADMITTING ENCOUNTER CLASS LOCATION SOURCE 10/27/2024/10/28/19 25 [id number] Ambulatory Building:[facility] 09/22/2024/09/23/19 [id number] Ambulatory Building:[facility] 08/27/2024/08/27/19 25 [id number] Ambulatory Building:[facility] 08/20/2024/08/20/19 [id number] Ambulatory Building:[facility] 07/25/2024/07/25/19 [id number] Ambulatory Building:[facility] 07/11/2024/07/11/19 [id number] Ambulatory Building:[facility] 06/23/2024/06/23/20 24 [id number] Ambulatory Building:[facility] 06/11/2024 [id number] Inpatient Encounter Building:[facility] 06/11/2024 [id number] Inpatient Encounter Building:[facility] 06/10/2024 [id number] Inpatient Encounter Building:[facility] 06/10/2024/06/10/20 24 [id number] Ambulatory Building:[facility] 06/10/2024 [id number] Inpatient Encounter Building:[facility] 06/10/2024/06/11/20 24 [id number] JOSEFINA NOVA Inpatient Encounter Building:[facility] URoom: 2228Bed: 2228- [facility] 06/02/2024/06/02/20 24 [id number] Ambulatory Building:[facility] 05/29/2024 [id number] Ambulatory Building:[facility] C HVCCT [facility] 05/29/2024/05/29/20 24 [id number] Ambulatory Buildin [id number] [facility] 05/29/2024/05/29/20 24 [id number] Ambulatory Buildin [id number] [facility] 05/29/2024/05/29/20 24 [id number] Ambulatory Buildin [id number] [facility] 05/27/2024 [id number] Ambulatory Building:[facility] 05/27/2024/05/27/20 24 [id number] JOSEFINA NOVA Ambulatory Buildin 0Room: [facility] VASCULAR POOLBed: 2435 [facility] 05/27/2024/05/27/20 24 [id number] Ambulatory Buildin 0 [facility] 05/13/2024/05/13/20 24 [id number] Ambulatory Building:[facility] 05/08/2024/05/08/20 24 [id number] Ambulatory Building:[facility] 04/25/2024/04/25/20 24 [id number] Aliciaradhakelsey Lalo [id number] 02/18/2024/02/18/20 24 [id number] Ambulatory Building:[facility] 01/07/2024/01/07/20 24 [id number] Ambulatory Building:[facility] 12/26/2023/12/26/19 24 [id number] Ambulatory Building:[facility] 12/07/2023/12/07/19 24 [id number] Ambulatory Building:[facility] PAYERS ENCOUNTER GUARANTOR PAYER SUBSCRIBER SOURCE 10/27/2024 JENNI CANADA: [id number] [place] [address]Gqn: () Primary Insurance:MEDICARE Policy Number: [id number] Date:3289-25-66Cty n Name:Medicare JENNI SAXENAB: [id number] [place] [address] [facility] 10/27/2024 Secondary Insurance:IGNACIA shane Number: [id number] e Date:2016-01-18 JENNI CANADA: [id number] [place] [address] [facility] 09/22/2024 Primary Insurance:MEDICARE Policy Number: [id number] Date:9996-77-63Sim n Name:Medicare JENNI SAXENAB: [id number] [place] [address] [facility] 09/22/2024 Secondary Insurance:TRICAREP olicy Number: [id number] Date:2022-07-09 JENNI M HEMANTHB: [id number] [place] [address] [facility] 08/27/2024 JENNI M HEMANTHB: [place] [address]Sfg: (HP) Primary Insurance:MEDICARE Policy Number: [id number] Date:1986-30-15Axa n Name:Medicare JENNI Partida HEMANTHB: [id number] [place] [address] [facility] 08/27/2024 Secondary Insurance:TRICAREP olicy Number: [id number] Date:2016-01-18 JENNI Helga SAXENAB: [id number] [place] [address] [facility] 08/20/2024 JENNI M HEMANTHB: [place] [address]Cap: (HP) Primary Insurance:MEDICARE Policy Number: [id number] Date:7245-99-27Lly n Name:Medicare JENNI Partida HEMANTHB: [id number] [place] [address] [facility] 08/20/2024 Secondary Insurance:TRICAREP olicy Number: [id number] Date:2016-01-18 JENNI SAXENAB: [id number] [place] [address] [facility] 07/25/2024 Primary Insurance:MEDICARE Policy Number: [id number] ve Date:2802-72-33Xut n Name:Medicare JENNI M HEMANTHB: [id number] [place] [address] [facility] 07/25/2024 Secondary Insurance:TRICAREP olicy Number: [id number] Date:2022-07-09 JENNI Partida HEMANTHB: [id number] [place] [address] [facility] 07/11/2024 Primary Insurance:MEDICARE Policy Number: [id number] Date:3513-59-25Rni n Name:Medicare JENNI QUINONESB: [id number] [place] [address] [facility] 07/11/2024 Secondary Insurance:TRICAREP olicy Number: [id number] Date:2022-07-09 JENNI Partida HEMANTHB: [id number] [place] [address] [facility] 06/23/2024 Primary Insurance:MEDICARE Policy Number: [id number] Date:5644-06-49Ztm n Name:Medicare JENNI Partida HEMANTHB: [id number] [place] [address] [facility] 06/23/2024 Secondary Insurance:TRICAREP olicy Number: [id number] Date:2022-07-09 JENNI Partida HEMANTHB: [id number] [place] [address] [facility] 06/11/2024 Primary Insurance:MEDICARE Policy Number: [id number] Date:6218-86-76Mrb n Name:Medicare JENNI Partida HEMANTHB: [id number] [place] [address] [facility] 06/11/2024 Secondary Insurance:TRICAREP olicy Number: [id number] Date:2022-07-09 JENNI Partida HEMANTHB: [id number] [place] [address] [facility] 06/11/2024 Primary Insurance:MEDICARE Policy Number: [id number] Date:1232-56-26Kyf n Name:Medicare JENNI QUINONESB: [id number] [place] [address] [facility] 06/11/2024 Secondary Insurance:TRICAREP olicy Number: [id number] Date:2022-07-09 JENNI Partida HEMANTHB: [id number] [place] [address] [facility] 06/10/2024 Primary Insurance:MEDICARE Policy Number: [id number] Date:0382-35-77Wst n Name:Medicare JENNI Partida HEMANTHB: [id number] [place] [address] [facility] 06/10/2024 Secondary Insurance:TRICAREP olicy Number: [id number] Date:2022-07-09 JENNI Partida HEMANTHB: [id number] [facility] [address] [facility] 06/10/2024 Primary Insurance:MEDICARE Policy Number: [id number] Date:6076-69-04Cqp n Name:Medicare JENNI Partida HEMANTHB: [id number] [facility] [address] [facility] 06/10/2024 Secondary Insurance:TRICAREP olicy Number: [id number] Date:2022-07-09 JENNI Partida HEMANTHB: [id number] [facility] [place] [address] [facility] 06/10/2024 Primary Insurance:MEDICARE Policy Number: [id number] Date:2313-79-22Goi n Name:Medicare JENNI Partida HEMANTHB: [id number] [facility] [place] [address] [facility] 06/10/2024 Secondary Insurance:TRICAREP olicy Number: [id number] Date:2022-07-09 JENNI Helga SAXENAB: [id number] [place] [address] [facility] 06/10/2024 Primary Insurance:MEDICARE Policy Number: [id number] Date:2460-49-87Ggr n Name:Medicare JENNI Partida HEMANTHB: [id number] [place] [address] [facility] 06/10/2024 Secondary Insurance:TRICAREP olicy Number: [id number] Date:2022-07-09 JENNI SAXENAB: [id number] [facility] [place] [address] [facility] 06/02/2024 Primary Insurance:MEDICARE Policy Number: [id number] Date:0219-65-81Hfx n Name:Medicare JENNI M HEMANTHB: [id number] [place] [address] [facility] 06/02/2024 Secondary Insurance:TRICAREP olicy Number: [id number] Date:2022-07-09 JENNI Helga SAXENAB: [id number] [facility] [place] [address] [facility] 05/29/2024 Primary Insurance:MEDICARE Policy Number: [id number] Date:3767-52-83Fue n Name:Medicare JENNI M HEMANTHB: [id number] [place] [address] [facility] 05/29/2024 Secondary Insurance:TRICAREP olicy Number: [id number] Date:2022-07-09 JENNI SAXENAB: [id number] [place] [address] [facility] 05/29/2024 Primary Insurance:MEDICARE Policy Number: [id number] Date:8043-57-09Yel n Name:Medicare JENNI Partida HEMANTHB: [id number] [place] [address] [facility] 05/29/2024 Secondary Insurance:TRICAREP olicy Number: [id number] Date:2022-07-09 JENNI SAXENAB: [id number] [place] [address] [facility] 05/29/2024 Primary Insurance:MEDICARE Policy Number: [id number] Date:8619-47-55Jly n Name:Medicare JENNI SAXENAB: [id number] [place] [address] [facility] 05/29/2024 Secondary Insurance:TRICAREP olicy Number: [id number] Date:2022-07-09 JENNI CANADA: [id number] [place] [address] [facility] 05/29/2024 Primary Insurance:MEDICARE Policy Number: [id number] Date:5895-83-03Mgv n Name:Medicare JENNI Helga SAXENAB: [id number] [place] [address] [facility] 05/29/2024 Secondary Insurance:TRICAREP olicy Number: [id number] Date:2022-07-09 JENNI SAXENAB: [id number] [place] [address] [facility] 05/27/2024 Primary Insurance:MEDICARE Policy Number: [id number] Date:8956-86-34Ipl n Name:Medicare JENNI QUINONESB: [id number] [place] [address] [facility] 05/27/2024 Secondary Insurance:TRICAREP olicy Number: [id number] Date:2022-07-09 JENNI QUINONESB: [id number] [place] [address] [facility] 05/27/2024 Primary Insurance:MEDICARE Policy Number: [id number] Date:5964-66-92Nst n Name:Medicare JENNI QUINONESB: [id number] [place] [address] [facility] 05/27/2024 Secondary Insurance:TRICAREP olicy Number: [id number] Date:2022-07-09 JENNI QUINONESB: [id number] [place] [address] [facility] 05/27/2024 Primary Insurance:MEDICARE Policy Number: [id number] Date:5844-61-75Lel n Name:Medicare JENNI QUINONESB: [id number] [place] [address] [facility] 05/27/2024 Secondary Insurance:TRICAREP olicy Number: [id number] Date:2022-07-09 JENNI QUINONESB: [id number] [place] [address] [facility] 05/13/2024 Primary Insurance:MEDICARE Policy Number: [id number] Date:2994-48-85Kwv n Name:Medicare JENNI QUINONESB: [id number] [place] [address] [facility] 05/13/2024 Secondary Insurance:TRICAREP olicy Number: [id number] Date:2022-07-09 JENNI M HEMANTHB: [id number] [place] [address] [facility] 05/08/2024 JENNI M HEMANTHB: [place] [address]Mnc: (HP) Primary Insurance:MEDICARE Policy Number: [id number] Date:1138-82-57Zst n Name:Medicare JENNI Partida NANCIE: [id number] [place] [address] [facility] 05/08/2024 Secondary Insurance:IGNACIA shane Number: [id number] e Date:2016-01-18 JENNI Helga SAXENAB: [id number] [place] [address] [facility] 04/25/2024 Jenni Helga [id number] [place], [place] [address]Pci: (HP) Primary Insurance:Medicare Policy Number: [id number] ve Date:2024-04-25 Jenni Partida Nancie: [id number] [place], [place] [address]Cvj: (HP) [facility] 04/25/2024 Secondary Insurance:Haleigh Oden Fed-WpsPolicy Number: [id number] ve Date:1469-00-23Yh[address] [address]BN: Jenni Helga SaxenaB: [id number] [place], [place] [address]Paw: (HP) [facility] 04/25/2024 Tertiary Insurance:Self PayPolicy Number: Effective Date:2024-04-25 [facility] [place] JENNI [place]: [place] [address]Aej: (HP) (WP) Primary Insurance:MEDICARE Policy Number: [id number] Date:0989-57-12Tar n Name:Medicare JENNI Partida HEMANTHB: [id number] [place] [address] [facility] 02/18/2024 Secondary Insurance:TRICAREP olicy Number: [id number] e Date:2016-01-18 JENNI Helga SAXENAB: [id number] [place] [address] [facility] 01/07/2024 Primary Insurance:MEDICARE Policy Number: [id number] Date:0596-66-80Poo n Name:Medicare JENNI Partida HEMANTHB: [id number] [place] [address] [facility] 01/07/2024 Secondary Insurance:TRICAREP olicy Number: [id number] Date:2022-07-09 JENNI CANADA: [id number] [place] [address] [facility] 12/26/2023 JENNI CANADA: [place] [address]Hnd: (HP) (WP) Primary Insurance:MEDICARE Policy Number: [id number] Date:2241-21-18Sej n Name:Medicare JENNI Partida HEMANTHB: [id number] [place] [address] [facility] 12/26/2023 Secondary Insurance:TRICAREP olicy Number: [id number] e Date:2016-01-18 JENNI SAXENAB: [id number] [place] [address] [facility] 12/07/2023 Primary Insurance:MEDICARE Policy Number: [id number] ve Date:8699-03-39Sqy n Name:Medicare JENNI [place]: [id number] [facility] [place] [address] [facility] 12/07/2023 Secondary Insurance:IGNACIA shane Number: [id number] Date:2022-07-09 JENNI CANADA: [id number] [place] [address] [facility]
--- OUTSIDE RECORDS SUMMARY | 2024-11-05 09:30 | XMS_ITS ---
Author Organization [facility] [place] Address [address] [place] [address] Care Team Providers Care School Year Nanny Name Role Phone Mau MOULTON, Jasvir Primary Care Provider Roland Soto Unavailable [phone] Allergies Allergen (clinical drug ingredient) Drug/Non Drug Allergy documented on EMR Reaction Allergy Type Onset Date Status A-Cillin (penicillin) rash Drug Allergy Active Codeine Phosphate (codeine) stomach upset Drug Allergy Active REASON FOR VISIT 6w F/U - COPD, Left lung mass Medications Medication SIG (Take, Route, Frequency, Duration) Notes Start Date End Date Status Colchicine 0.6 MG TAKE 1 TABLET BY TEODORO DAILY Oral for 30 Days Active Clotrimazole 10 MG 1 erinn while on immunosuppressive medicine Mouth/Throat Three times a day Active Breztri Aerosphere 160-9-4.8 MCG/ACT 2 puffs Inhalation Twice a day for 30 days Rinse after use 11/05/2024 Active Escitalopram Oxalate 10 MG TAKE 1 TABLET BY MOUTH DAILY Oral for 90 Days Active Digoxin 125 MCG 1 tablet Orally Active buPROPion HCl ER (SR) 150 MG Take 1 tablet (150 mg) by mouth in the morning and 1 tablet (150 mg) before bedtime. Oral for 90 Days Active Atorvastatin Calcium 20 MG Oral for 90 Days Active amLODIPine Besylate 5 MG 1 tablet Orally Once a day for 30 day(s) 09/24/2024 Active ALPRAZolam 0.25 MG Oral for 30 Days Active Carvedilol 12.5 MG Oral for 90 Days Active rOPINIRole HCl 0.25 MG TAKE 1 TABLET BY MOUTH 1-3 hours before bedtime Oral for 90 Days Active Ondansetron HCl 4 MG TAKE 1 TABLET BY MO UT EVERY 8 HOURS NEEDED FOR NAUSEA and FOR VOMITING Oral for 7 Days Active Torsemide 20 MG Oral for 90 Days Active Spironolactone 25 MG Oral for 90 Days Active Omeprazole 40 MG TAKE 1 CAPSULE BY MO UTH DAILY Oral for 90 Days Active Lisinopril 20 MG 1 tablet Orally Once a day Active Insulin Lispro Prot & Lispro (75-25) 100 UNIT/ML Inject TEN Units under the skin in the morning and TEN Units in the evening. Inject with meals. Subcutaneous for 75 Days Active Hyoscyamine Sulfate 0.125 MG DISSOLVE 2 (TWO) TABLET BY MOUTH EVERY 6 HOURS NEEDED FOR ABDOMINAL PAIN (MAX DAILY DOSE EIGHT TABLETS) Oral for 5 Days Active HYDROcodone-Acetaminophen 5-325 MG Oral for 10 Days Active Gabapentin 100 MG TAKE 1 CAPSULE BY MO [facility] THREE TIMES DAILY (IN THE MORNING, IN THE EVENING and AT BEDTIME) Oral for 90 Days Active Farxiga 10 MG 1 tablet Orally Once a day Active Social History Tobacco Use: Social History Observation Description Date Details (start date - stop date) Former Smoker NA - NA Tobacco Control (Standard) Question Answer Notes Tobacco use: Former smoker How long has it been since y ou last smoked? Greater than 10 years Additional Findings: Tobacco non-user Ex -moderate cigarette smoker (10-19/day) Vital Signs Temperature 97.0 degrees Fahrenheit 11/06/19 25 Blood pressure systolic 117 mm Hg 11/06/19 25 Blood pressure diastolic 69 mm Hg 025 Heart Rate 72 /min 11/05/2024 Respiratory Rate 18 /min 11/05/2024 Height 62 in 11/05/2024 Weight 135.4 lbs 11/05/2024 BMI 24.76 kg/m2 11/05/2024 Oximetry 93 % 11/05/2024 2L O2 Activity/Resting Encounters Encounter Location Date Provider Diagnosis Pulmonary Medicine [address] [address] 11/05/2024 Roland Tan Centrilobular emphys moon J43.2 ; Lung mass R91.8 ; Hilar lymphadenopathy R59.0 ; Chronic respiratory failure with hypoxia J96.11 ; Chronic kidney disease, stage 3a N18.31 ; Other secondary pulmonary hypertension I27.29 and History of tobacco abuse Z87.891 Assessments Encounter Date Diagnosis (ICD Code) Assessment Notes Treatment Notes Treatment Clinical Notes Section Notes 11/05/2024 Centrilobular emphysema (ICD-10 - J43.2) Emphysematous changes noted on chest CT imaging. History of tobacco abuse. PFT comfirms mild obstruction. Did not respond to Stiolto - no voiced benefit. Asked patient how she wants to proceed... try a different inhaler? Nebulizer? Nothing? She stated she would try another inhaler. Avoiding dry powder inhalers as I do not feel she has enough negative inspiratory force. Will try Breztri - 2 puffs BID. Counseled that this adds ICS, so she will need to rinse/gargle after use. If she responds favorably, her PCP can continue to prescribe it. If no benefit, she may forgo further treatment. Will have her F/U PRN at this time. 11/05/2024 Lung mass (ICD-10 - R91.8) History: Slowly increasing LLL pleural-based mass over the past ~4 years: -08/14/2024: 5cm -04/25/2024: 5cm (imaging not available) -10/06/2022: 2.2cm -09/04/2020: 1.6cm Last visit, patient selected option to obtain a F/U CT chest. However, she was concerned about the IVP dye. Explained it was ordered d/t lymphadenopathy, and that a creatinine is ordered (a standard for her age here) to assess her renal function and that IVP dye can be administered. Lengthy discussion with patient and daughters about goals of therapy - she re-iterated that she would not want any surgery, chemo, or radiation if this was worsening, or confirmed cancer. She selected CT chest just to see. Discussed if she does not want anything done, it is okay not to have any further testing or w/up done for it. She and daughters voiced they are accepting of the patient's choice to cancel the CT chest. There are no further plans for monitoring, w/up, etc. at this time. She was counseled that if she changes her mind in the future, the risk is that it could be too advanced for anything to be done - she voiced understanding. 11/05/2024 Hilar lymphadenopathy (ICD-10 - R59.0) Cancelling CT chest. 11/05/2024 Chronic respiratory failure with hypoxia (ICD-10 - J96.11) Continue O2. 11/05/2024 Chronic kidney disease, stage 3a (ICD-10 - N18.31) Secondary to underlying DM2. 11/05/2024 Other secondary pulmonary hypertension (ICD-10 - I27.29) Left & right heart cathteterization 05/27/2024: -PA 56/30 (41) -PCWP 20 Most consistent with group 2 (cardiac). Treatment is treating the underlying disease. 11/05/2024 History of tobacco abuse (ICD-10 - Z87.891) Does not meet current LDCT screening criteria. Plan Of Treatment Medication Medication Name Sig Start Date Stop Date Notes Breztri Aerosphere 160-9-4.8 MCG/ACT 2 puffs Inhalation Twice a day for 30 days 11/05/2024 Stiolto Respimat 2.5-2.5 MCG/ACT 2 puffs Inhalation Once a day Treatment Notes Assessment Notes Centrilobular emphysema Emphysematous changes noted on chest CT imaging. History of tobacco abuse. PFT comfirms mild obstruction. Did not respond to Stiolto - no voiced benefit. Asked patient how she wants to proceed... try a different inhaler? Nebulizer? Nothing? She stated she would try another inhaler. Avoiding dry powder inhalers as I do not feel she has enough negative inspiratory force. Will try Breztri - 2 puffs BID. Counseled that this adds ICS, so she will need to rinse/gargle after use. If she responds favorably, her PCP can continue to prescribe it. If no benefit, she may forgo further treatment. Will have her F/U PRN at this time. Lung mass History: Slowly increasing LLL pleural-based mass over the past ~4 years: -08/14/2024: 5cm -04/25/2024: 5cm (imaging not available) -10/06/2022: 2.2cm -09/04/2020: 1.6cm Last visit, patient selected option to obtain a F/U CT chest. However, she was concerned about the IVP dye. Explained it was ordered d/t lymphadenopathy, and that a creatinine is ordered (a standard for her age here) to assess her renal function and that IVP dye can be administered. Lengthy discussion with patient and daughters about goals of therapy - she re-iterated that she would not want any surgery, chemo, or radiation if this was worsening, or confirmed cancer. She selected CT chest just to see. Discussed if she does not want anything done, it is okay not to have any further testing or w/up done for it. She and daughters voiced they are accepting of the patient's choice to cancel the CT chest. There are no further plans for monitoring, w/up, etc. at this time. She was counseled that if she changes her mind in the future, the risk is that it could be too advanced for anything to be done - she voiced understanding. Hilar lymphadenopathy Cancelling CT chest. Chronic respiratory failure with hypoxia Continue O2. Chronic kidney disease, stage 3a Secondary to underlying DM2. Other secondary pulmonary hypertension Left & right heart cathteterization 05/27/2024: -PA 56/30 (41) -PCWP 20 Most consistent with group 2 (cardiac). Treatment is treating the underlying disease. History of tobacco abuse Does not meet current LDCT screening criteria. Next Appt Details Follow Up: PRN, Reason: Progress Notes * Jenni VILLEGAS MDOB:1940 (84 yo F)Acc No.[id number]:11/05/2024 Follow Up Patient: Ingrid MOLINA Jenni Partida Provider: Binta Tan DO :1940 A ge:84 Y S ex:Female Date:11/05/2024 Address:[address] [place] [address] [place], [id number] Pcp:Jasvir León MD Check In:01:22 PM ESTCheck O ut:01:49 PM EST Subjective: * Chief Complaints: * 6 w F/U - COPD, Left lung mass * HPI: G eneral: Patient had PFT 10/08/2024 - reviewed with patient; spirometry consistent with mild obstruction without a bronchodilator response. DLCO was markedly decreased 29% (though she didn't meet ATS standards). She tried Stiolto, but did not voice any significant benefit. No signficant adverse effects - dry mouth is chronic. She did not get the CT chest done. She was concerned about getting IVP dye. I noted that this was addressed when I ordered the CT chest, the dye was B/C of lymphadenopathy. S he is reconsidering getting the CT chest done now. MA Intake Comments:. Patient presents for a follow-up. Patient is currently on 2L O2 at home. DME: [facility]. Patient complains of SOB. Patient is using Stiolto daily with minimal benefit. Patient is following up after a recent PFT. Patient did not have the CT Chest done as she was concerned about the contrast and her kidneys. Patient is under the care of [facility] Cardiology. * ROS: G eneral/Constitutional: Fever or sweats [...] N eurologic: Seizures d enies. T remor j erks. H ematology: Abnormal Bleeding d enies. P sychiatric: Anxiety d enies. * Active Problem List J96.11 Chronic respiratory failure with hypoxia Modified On:09/24/2024/U Status:confirmed G47.33 ZIA (obstructive sle ep apnea) Modified On:09/24/2024/U Status:confirmed R91.8 Lung mass Modified On:09/24/2024/U Status:confirmed R59.0 Hilar lymphadenopath y Modified On:09/24/2024U Status:confirmed Z87.891 History of tobacco a buse Modified On:09/24/2024 Status:confirmed I27.29 Other secondary pulm onary hypertension Modified On:09/24/2024 Status:confirmed N18.31 Chronic kidney disea se, stage 3a Modified On:09/24/2024U Status:confirmed J43.2 Centrilobular emphys moon Modified On:09/24/2024U Status:confirmed J43.9 Emphysema, unspecifi ed Modified On:10/28/2024 Status:confirmed * Medical History: * Surgical History: c holecystectomy hysterectomy left knee arthroscopy TAVR 06/10/2024ardiac Catheterization 05/27/2024 * Hospitalization/Major Diagno stic Procedure: 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 [...] When did you stop smokin. 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 D rugs/Alcohol: D rugs H [...] bedtime Oral Spironolactone 25 MG Tablet Oral Stiolto Respimat(Tiotropium [place]- Olodaterol) 2.5-2.5 MCG/ACT Aerosol Solution 2 puffs Inhalation Once a day Torsemide 20 MG Tablet Oral Medication List reviewed and reconciled with the patientTaking ALPRAZolam 0.25 MG Tablet Oral Taking amLODIPine [...] Taking Spironolactone 25 MG Tablet Oral Taking Stiolto Respimat(Tiotropium [place]-Olodaterol) 2.5-2.5 MCG/ACT Aerosol Solution 2 puffs Inhalation Once a day Taking Torsemide 20 MG Tablet Oral Medication List reviewed and reconciled with the patient * Allergies: A -Cillin (penicillin): rash - AllergyCodeine Phosphate (codeine): stomach upset - Allergyno[Allergies Verified] Objective: * Vitals: W t:135.4lbs, Ht: 62 in, BP:sittin/69mm Hg, Temp:Forehead:97.0F, HR: 76 /min,72/min, RR:18/min, BMI:24.76Index, Oxygen sat %: Oxygen 2l:78 %,Oxygen 2l:93%, Ht-cm: 157.48 cm, Wt-k.42 kg. 2L O2 Activity/Resting. * Examination: E [...] Plan: * Treatment: 2. L sandra mass Notes: History: Slowly increasing LLL pleural-based mass over the past ~4 years: -08/14/2024: 5cm -04/25/2024: 5cm (imaging not available) -10/06/2022: 2.2cm -09/04/2020: 1.6cm Last visit, patient selected option to obtain a F/U CT chest. However, she was concerned about the IVP dye. Explained it was ordered d/t lymphadenopathy, and that a creatinine is ordered (a standard for her age here) to assess her renal function and that IVP dye can be administered. Lengthy discussion with patient and daughters about goals of therapy - she re-iterated that she would not want any surgery, chemo, or radiation if this was worsening, or confirmed cancer. She selected CT chest just to see. Discussed if she does not want anything done, it is okaynotto have any further testing or w/up done for it. She and daughters voiced they are accepting of the patient's choice to cancel the CT chest. There are no further plans for monitoring, w/up, etc. at this time. She was counseled that if she changes her mind in the future, the risk is that it could be too advanced for anything to be done - she voiced understanding. 3. H ilar lymphadenopathy Notes: Cancelling CT chest. 4. C hronic respiratory failure with hypoxia Notes: Continue O2. 5. C hronic kidney disease, stage 3a Notes: Secondary to underlying DM2. 6. O ther secondary pulmonary hypertension Notes: Left & right heart cathteterization 05/27/2024: -PA 56/30 (41) -PCWP 20 Most consistent with group 2 (cardiac). Treatment is treating the underlying disease. 7. H istory of tobacco abuse Notes: Does not meet current LDCT screening criteria. * Procedure Codes: * Preventive Medicine: COVID Vaccination: H as [...] tobacco use and urged to quit. 0 11/05/2024 Former Education on smoking effects provided?11/05/2024 Former * Follow Up: P RN * * Sign off status: Completed Visit Status: C HK (Check Out) true * Provider: Binta Tan DO Date: 0 11/05/2024 Generated for Alyssa walker/Shola/Celsoitting on: 0 11/29/2024 01:04 PM EDT History and Physical Notes * HPI (History of Present Illness) Category Sub-Category Detail Notes Category Not es General Patient present s for a follow-up. Patient is currently on 2L O2 at home. DME: [facility]. Patient complains of SOB. Patient is using Stiolto daily with minimal benefit. Patient is following up after a recent PFT. Patient did not have the CT Chest done as she was concerned about the contrast and her kidneys. Patient is under the care of [facility] Cardiology. Examination Category Sub-Category Detail Notes Category Not es Exam GENERAL APPEARANCE: Appears stated age Skin Normal Eyes Ears Nose Wearing nasal cannul a Mouth Edon and mildly dry Trachea Midline Chest Normal Respiratory Normal Movements, Ef fort Normal Auscultation Diminished breath so unds. Mild crackles in bases. No wheezes or rhonchi Cardiac Regular rate and rhy thm Gastrointestinal Normal Vascular No edema Musculoskeletal Normal posture Neurological Focal, intact Psychiatric Alert and oriented x 3 Mentation/Cognition Normal Oropharynx Mallampati Class II
[2024-11-29] VITALS (37 sets, daily range): BP systolic 87–134; BP diastolic 46–83; PULSE 54–78; O2SAT 56–96; BMI 24.5
--- NOTE | 2024-11-29 13:01 | ECG_ITS ---
The [facility] Test Date: 2024-11-29 Pat Name: KATHY VILLEGAS Department: Room: - Gender: Female General Manager: : 1940 Requested By: 1030 Order Number: [id number] Reading MD: JOSEFINA CHAO M.D. Measurements Intervals [place] Rate: 49 P: -22775 DE: -31725 QRS: 32 QRSD: 96 T: 186 QT: 456 QTc: 426 Interpretive Statements 05801 Atrial fibrillation with slow ventricular response [address] depression, probably digitalis effect 43599 Twave abnormality, possible lateral ischemia or digitalis effect 9150 abnormal ECG Compared to ECG 11/11/2024 10:38:08 No significant changes Electronically Signed On 11-30-2024 13:45:49 EDT by JOSEFINA CHAO M.D.
--- NOTE | 2024-11-29 13:01 | XR_ITS ---
The [address] [address] Patient Name: KATHY VILLEGAS MRN: [id number] date: 1940 Sex: F Assigned Patient Location: ED.MAIN Current Patient Location: ED.MAIN Accession/Order Number: [id number] Exam Date: 11/29/2024 14:08 Report Date: 11/29/2024 14:12 At the request of: GRACY PICHARDO MD Procedure: XR chest 1V XR chest 1V 11/29/2024 1:56 PM SIGNS AND SYMPTOMS: ^Weakness ^Y PROTOCOL: Frontal radiograph of the chest COMPARISON: 11/11/2024 FINDINGS: The trachea is midline. Atherosclerotic changes are present in the thoracic aorta. There is cardiomegaly. Similar bilateral airspace opacities are noted, left greater than right with small bilateral pleural effusions. Remote fractures of the posterior left seventh through ninth ribs are noted. There is evidence of prior sternotomy. The bony thorax is intact. XR/XR chest 1V IMPRESSION: Similar bilateral airspace opacities are noted, left greater than right with small bilateral pleural effusions. Similar cardiomegaly. Impression dictated by: Garry Rodriguez M.D. 11/29/2024 2:12 PM Dictation [facility] Electronically authenticated by: [id number] Y Date: 11/29/2024 14:12
--- OUTSIDE RECORDS SUMMARY | 2024-11-29 13:01 | XMS_ITS | Encounter Summary ---
Author Organization [facility] Address [address] [facility] [place] [address] Care Team Providers Care Rn Embedded Name Role Phone Jasvir León MD Primary Care Provider [phone] Jasvir León MD Unavailable [phone] Leora Pollard RN Unavailable [phone] Encounter Details Date Type Department Care Team (Late st Contact Info) Description 06/26/2024 Abstract [facility] 112 [facility] 110 [place] [phone] Jasvir León MD 112 [facility] 110 [place] [address] Social History Tobacco Use Types Packs/Day Years Used Date Smoking Tobacco: Former Cigarettes Smokeless Tobacco: Never Alcohol Use Standard Drinks/Week Comments Yes 0 (1 standard drink = 0.6 oz pure alcohol) 1-2 drinks 2-4 times a month,,caffeine intake: 2-3 cups per day PHQ-2 Answer Date Recorded Patient Health Questionnaire-2 Score 0 04/11/2023 Comments Unknown Sex and Gender Information Value Date Recorded Sex Assigned at Not on file Legal Sex Female 7:05 PM EDT Gender Identity Not on file Sexual Orientation Not on file documented as of this encounter Plan of Treatment Not on file documented as of this encounter Visit Diagnoses Not on filedocumented in this encounter Care Teams Rn Embedded Relationship Specialty Start Date End Date Jasvir León MD [address] [facility] 110 [place] [address] PCP - General Internal Medicine 11/20/22 Jasvir León MD [address] [facility] [address] [place] [address] PCP - ACO Reach 11/30/22 Leora Pollard, RN Registered Nurse Family Medicine 07/10/24 documented as of this encounter
--- OUTSIDE RECORDS SUMMARY | 2024-11-29 13:01 | XMS_ITS | Encounter Summary ---
Author Organization [facility] Address [address] [facility] [place] [address] Care Team Providers Care Vendor Manager Name Role Phone Jasvir León MD Primary Care Provider Jasvir León MD Unavailable [phone] Leora Pollard RN Unavailable [phone] Encounter Details Date Type Department Care Team (Late st Contact Info) Description 06/24/2024 Abstract [facility] 112 [facility] 110 [place] [address] Jasvir León MD 112 [facility] 110 [place] [address] Social History Tobacco Use Types Packs/Day Years [...] on filedocumented in this encounter Care Teams Vendor Manager Relationship Specialty Start Date End Date Jasvir León MD [address] [facility] 110 [place] [address] PCP - General Internal Medicine 11/20/22 Jasvir León MD [address] [facility] [address] [place] [address] PCP - ACO Reach 11/30/22 Leora Pollard, RN Registered Nurse Family Medicine 07/10/24 documented as of this encounter
--- OUTSIDE RECORDS SUMMARY | 2024-11-29 13:01 | XMS_ITS | Encounter Summary ---
Author Organization [facility] Address [address] [facility] [place] [address] Care Team Providers Care Litigation Legal Assistant Name Role Phone Jasvir León MD Primary Care Provider [phone] Jasvir León MD Unavailable [phone] Leora Pollard RN Unavailable [phone] Encounter Details Date Type Department Care Team (Late st Contact Info) Description 05/09/2023 Abstract [facility] 112 [facility] 110 [place] [address] Jasvir León MD 112 [facility] 110 [place] [address] Social History Tobacco Use Types Packs/Day Years [...] on filedocumented in this encounter Care Teams Litigation Legal Assistant Relationship Specialty Start Date End Date Jasvir León MD [address] [facility] 110 [place] [address] PCP - General Internal Medicine 11/20/22 Jasvir León MD [address] [facility] 110 [place] [address] PCP - ACO Reach 11/30/22 Leora Pollard, RN Registered Nurse Family Medicine 07/10/24 documented as of this encounter
--- OUTSIDE RECORDS SUMMARY | 2024-11-29 13:01 | XMS_ITS | Encounter Summary ---
Author Organization [facility] Address [address] [facility] [place] [address] Care Team Providers Care Press Secretary Name Role Phone Jasvir León MD Primary Care Provider [phone] Jasvir León MD Unavailable Leora Pollard RN Unavailable [phone] Encounter Details Date Type Department Care Team (Late st Contact Info) Description 05/09/2023 Abstract [facility] 112 [facility] 110 [place] [address] Jasvir León MD 112 [facility] 110 [place] [address] Social History Tobacco Use Types Packs/Day Years [...] on filedocumented in this encounter Care Teams Press Secretary Relationship Specialty Start Date End Date Jasvir León MD [address] [facility] 110 [place] [address] PCP - General Internal Medicine 11/20/22 Jasvir León MD [address] [facility] 110 [place] [address] PCP - ACO Reach 11/30/22 Leora Pollard, RN Registered Nurse Family Medicine 07/10/24 documented as of this encounter
--- OUTSIDE RECORDS SUMMARY | 2024-11-29 13:02 | XMS_ITS | Encounter Summary ---
Author Organization [facility] Address [address] [facility] [place] [address] Care Team Providers Care Caregiver Assisted Living Name Role Phone Jasvir León MD Primary Care Provider Jasvir León MD Unavailable Leora Pollard RN Unavailable [phone] Encounter Details Date Type Department Care Team (Late st Contact Info) Description 03/26/2023 Abstract [facility] 112 [facility] 110 [place] [address] Jasvir León MD [address] [facility] 110 [place] [address] Social History Tobacco Use Types Packs/Day Years Used Date Smoking Tobacco: Former Cigarettes Smokeless Tobacco: Never Alcohol Use Standard Drinks/Week Comments Yes 0 (1 standard drink = 0.6 oz pur e alcohol) 1-2 drinks 2-4 times a month Comments Unknown Sex and Gender Information Value Date Recorded Sex Assigned at Not on file Legal Sex Female 7:05 PM EDT Gender Identity Not on file Sexual Orientation Not on file documented as of this encounter Plan of Treatment Not on file documented as of this encounter Visit Diagnoses Not on filedocumented in this encounter Care Teams Caregiver Assisted Living Relationship Specialty Start Date End Date Jasvir León MD [address] [facility] 110 [place], [place] [address] PCP - General Internal Medicine 11/20/22 Jsavir León MD 112 [facility] 110 [place] [address] PCP - ACO Reach 11/30/22 Leora Pollard, RN Registered Nurse Family Medicine 07/10/24 documented as of this encounter
--- OUTSIDE RECORDS SUMMARY | 2024-11-29 13:02 | XMS_ITS | Encounter Summary ---
Author Organization [facility] Address [address] [facility] [place] [address] Care Team Providers Care Traffic Or System Dispatcher Name Role Phone Jasvir León MD Primary Care Provider [phone] Jasvir León MD Unavailable [phone] Leora Pollard RN Unavailable Encounter Details Date Type Department Care Team (Late st Contact Info) Description 03/05/2023 Orders Only [facility] [address] [facility] 110 [place] [address] A, Unknown Practice [address] [place] [id number] Social History Tobacco Use Types Packs/Day Years [...] on file documented as of this encounter Procedures Procedure Name Priority Date/Time Associated Diagnosis Comments ELECTROCARDIOGRAM REPORT Routine 023 2:14 PM EDT X-RAY : SPINE, LUMBAR Routine 03/02/2023 1:[address] SCAN : THORACIC SPINE Routine 023 11:[address] CHEST WO IV CONTRAST Routine 03/02/20 23 11:45 AM EDT documented in this encounter Results * Electrocardiogram Report (03/02/2023 2:14 PM EDT) us Unknown Practice A IN CLINIC/BEDSIDE ORDERABLES Final Result * X-RAY : SPINE, LUMBAR (03/02/2023 1:03 PM EDT) Anatomical Region Laterality Modality Radiographic Irma ging us Unknown Practice A IMG XR PROCEDURES Final Resul t * CT SCAN : THORACIC SPINE (03/02/2023 11:45 AM EDT) Anatomical Region Laterality Modality Radiographic Irma ging us Unknown Practice A IMG XR PROCEDURES Final Resul t * CT chest wo IV contrast (03/02/2023 11:45 AM EDT) Anatomical Region Laterality Modality Body, Chest Computed Tomogra phy us Unknown Practice A IMG CT PROCEDURES Final Resul t documented in this encounter Visit Diagnoses Not on filedocumented in this encounter Care Teams Traffic Or System Dispatcher Relationship Specialty Start Date End Date Jasvir León MD [address] [facility] [address] [place] [address] PCP - General Internal Medicine 11/20/22 Jasvir León MD [address] [facility] [address] [place] [address] PCP - ACO Reach 11/30/22 Leora Pollard, RN Registered Nurse Family Medicine 07/10/24 documented as of this encounter
--- OUTSIDE RECORDS SUMMARY | 2024-11-29 13:02 | XMS_ITS | Encounter Summary ---
Author Organization [facility] Address [address] [facility] [place] [address] Care Team Providers Care Position Description Manager Name Role Phone Jasvir León MD Primary Care Provider Jasvir León MD Unavailable [phone] Leora Pollard RN Unavailable [phone] Encounter Details Date Type Department Care Team (Late st Contact Info) Description 05/15/2024 Abstract [facility] 112 [facility] 110 [place] [address] Jasvir León MD 112 [facility] 110 [place] [address] Social History Tobacco Use Types Packs/Day Years [...] on filedocumented in this encounter Care Teams Position Description Manager Relationship Specialty Start Date End Date Jasvir León MD [address] [facility] 110 [place] [address] PCP - General Internal Medicine 11/20/22 Jasvir León MD [address] [facility] 110 [place] [address] PCP - ACO Reach 11/30/22 Leora Pollard, RN Registered Nurse Family Medicine 07/10/24 documented as of this encounter
--- OUTSIDE RECORDS SUMMARY | 2024-11-29 13:02 | XMS_ITS | Encounter Summary ---
Author Organization [facility] Address [address] [facility] [place] [address] Care Team Providers Care Hvac R Tech Name Role Phone Jasvir León MD Primary Care Provider [phone] Jasvir León MD Unavailable [phone] Leora Pollard RN Unavailable [phone] Encounter Details Date Type Department Care Team (Late st Contact Info) Description 12/25/2022 Orders Only [facility] [address] [facility] [address] [place] [id number] Jasvir León MD [address] [facility] [address] [place] [address] Social History Tobacco Use Types Packs/Day Years [...] Procedure Name Priority Date/Time Associated Diagnosis Comments ECHOCARDIOGRAM WITH DOPPLER IF INDICATED Routine 12/22/2022 10:30 AM EDT documented in this encounter Results * ECHOCARDIOGRAM WITH DOPPLER IF INDICATED (12/22/2022 10:30 AM EDT) Anatomical Region Laterality Modality Radiographic Irma ging Jasvir León MD IMG XR PROCEDURES Final Result documented in this encounter Visit Diagnoses Not on filedocumented in this encounter Care Teams Hvac R Tech Relationship Specialty Start Date End Date Jasvir León MD [address] [facility] 110 [place] [address] PCP - General Internal Medicine 11/20/22 Jasvir León MD [address] [facility] 110 [place] [address] PCP - ACO Reach 11/30/22 Leora Pollard, [place] Registered Nurse Family Medicine 07/10/24 documented as of this encounter
--- OUTSIDE RECORDS SUMMARY | 2024-11-29 13:02 | XMS_ITS | Encounter Summary ---
Author Organization [facility] Address [address] [facility] [place] [address] Care Team Providers Care Combination Presser Name Role Phone Jasvir León MD Primary Care Provider [phone] Jasvir León MD Unavailable [phone] Leora Pollard RN Unavailable [phone] Encounter Details Date Type Department Care Team (Late st Contact Info) Description 11/29/2022 Abstract [facility] 112 [address] [facility] 110 [place] [address] Jasvir León MD 112 [facility] 110 [place] [address] Social History Tobacco Use Types Packs/Day Years Used Date Smoking Tobacco: Never Tobacco Cessation:Counseling Given: Not Answered Alcohol Use Standard Drinks/Week Comments Yes 0 (1 standard drink = 0.6 oz pur e alcohol) 1-2 drinks 2-4 times a month Comments Unknown Sex and Gender Information Value Date Recorded Sex Assigned at Not on file Legal Sex Female 7:05 PM EDT Gender Identity Not on file Sexual Orientation Not on file COVID-19 Exposure Response Date Recorded In the last 10 days, have yo u been in contact with someone who was confirmed or suspected to have Coronavirus/COVID-19? No / Unsure 11/20/2022 3:08 PM EDT documented as of this encounter Plan of Treatment Not on file documented as of this encounter Visit Diagnoses Not on filedocumented in this encounter Care Teams Combination Presser Relationship Specialty Start Date End Date Jasvir León MD [address] [facility] 110 [place] [address] PCP - General Internal Medicine 11/20/22 Jasvir León MD [address] [facility] 110 [place] [address] PCP - ACO Reach 11/30/22 Leora Pollard, RN Registered Nurse Family Medicine 07/10/24 documented as of this encounter
--- OUTSIDE RECORDS SUMMARY | 2024-11-29 13:02 | XMS_ITS | Encounter Summary ---
Author Organization [facility] Address [address] [place] [address] Care Team Providers Care Site Superintendent Name Role Phone Jasvir León MD Primary Care Provider [phone] Jasvir León MD Unavailable [phone] Leora Pollard RN Unavailable [phone] Encounter Details Date Type Department Care Team (Late st Contact Info) Description 11/18/2024 Patient Outreach [facility] [address] [place] [address] Monica Ross LPN Social History Tobacco Use Types Packs/Day Years Used Date Smoking Tobacco: Former Cigarettes Smokeless Tobacco: Never Alcohol Use Standard Drinks/Week Comments Yes 0 (1 standard drink = 0.6 oz pure alcohol) 1-2 drinks 2-4 times a month,,caffeine intake: 2-3 cups per day B1300 Health Literacy Answer Date Recor ded How often do you need to hav e someone help you when you read instructions, pamphlets, or other written material from your doctor or pharmacy? Never 07/10/2024 Humiliation, Afraid, Rape, and Kick questionnair e Answer Date Recorded Within the last year, have y ou been afraid of your partner or ex-partner? No 07/10/2024 Within the last year, have y ou been humiliated or emotionally abused in other ways by your partner or ex-partner? No Within the last year, have y ou been kicked, hit, slapped, or otherwise physically hurt by your partner or ex-partner? No 07/10/2024 Within the last year, have y ou been raped or forced to have any kind of sexual activity by your partner or ex-partner? No 07/10/2024 Social Connection and Isolat ion Panel [NHANES] Answer Date Recorded In a typical week, how many times do you talk on the phone with family, friends, or neighbors? More than three times a week 07/10/2024 How often do you get togethe r with friends or relatives? More than three times a week 07/10/2024 How often do you attend chur or latter day services? 1 to 4 times per year 07/10/2024 Do you belong to any clubs o r organizations such as orthodoxy groups, unions, fraternal or athletic groups, or school groups? No 07/10/2024 How often do you attend meet ings of the clubs or organizations you belong to? Never 07/10/2024 Are you , , di vorced, , never , or living with a partner? 07/10/2024 AUDIT-C Answer Date Recorded Q1: How often do you have a drink containing alcohol? Never 07/10/2024 Q2: How many drinks containi ng alcohol do you have on a typical day when you are drinking? Patient does not drink Q3: How often do you have si x or more drinks on one occasion? Never 07/10/2024 Overall Financial Resource Strain (CARDIA) Answe r Date Recorded How hard is it for you to pa y for the very basics like food, housing, medical care, and heating? Not hard at all 07/10/2024 PHQ-2 Answer Date Recorded Patient Health Questionnaire-2 Score 0 10/27/2024 [facility] [place] of Occupat ional Health - Occupational Stress Questionnaire Answer Date Recorded Do you feel stress - tense, restless, nervous, or anxious, or unable to sleep at night because your mind is troubled all the time - these days? Only a little 07/10/2024 Exercise Vital Sign Answer Date Recorde d On average, how many days pe r week do you engage in moderate to strenuous exercise (like a brisk walk)? 3 days 07/10/2024 On average, how many minutes do you engage in exercise at this level? 30 min 07/10/2024 Hunger Vital Sign Answer Date Recorded Within the past 12 months, y ou worried that your food would run out before you got the money to buy more. Never true 07/10/19 25 Within the past 12 months, t he food you bought just didn't last and you didn't have money to get more. Never true 07/10/2024 PRAPARE - Transportation Answer Date Re corded In the past 12 months, has l ack of transportation kept you from medical appointments or from getting medications? No 08/2024 In the past 12 months, has l ack of transportation kept you from meetings, work, or from getting things needed for daily living? No 07/10/2024 Housing Stability Vital Sign Answer Duane e Recorded In the last 12 months, was t here a time when you were not able to pay the mortgage or rent on time? No 07/10/2024 In the past 12 months, how m any times have you moved where you were living? 0 07/10/2024 At any time in the past 12 m [facility], were you homeless or living in a nursing home (including now)? No 07/10/2024 Comments Unknown Sex and Gender Information Value Date Recorded Sex Assigned at Not on file Legal Sex Female 7:05 PM EDT Gender Identity Not on file Sexual Orientation Not on file documented as of this encounter Progress Notes * Monica Ross LPN - 11/18/2024 8:33 AM EDT Images from the original note were not included. Flowsheet Row Patient Outreach from 11/18/2024 in [facility] with Monica Ross LPN Hospital Information ED, Hospital or [facility]ci Facility Discharge? Hospital Patient has been contacted within two business days of discharge No [DUE TO GOING TO SNF] Have two attempts been made to contact the patient within two business days of being discharged? No Diagnosis UNSPECIFIED A-FIB, PNEUMONIA, CKD3, CHF, HTN Discharge Date 11/15/24 Discharged To: Fci Facility (specify SNF in comments) Discharge Hospital [facility] Admission Date 11/12/24 Medications Appointments Self Management Patient Teaching Wrap Up documented in this encounter Plan of Treatment Not on file documented as of this encounter Visit Diagnoses Not on filedocumented in this encounter Care Teams Site Superintendent Relationship Specialty Start Date End Date Jasvir León MD [address] [place] [address] [place] [address] PCP - General Internal Medicine 11/20/22 Jasvir León MD [address] [facility] [address] [place] [address] PCP - ACO Reach 11/30/22 Leora Pollard, RN Registered Nurse Family Medicine 07/10/24 documented as of this encounter
--- OUTSIDE RECORDS SUMMARY | 2024-11-29 13:02 | XMS_ITS | Encounter Summary ---
Author Organization [facility] Address [address] [facility] [place] [address] Care Team Providers Care Floor Director Name Role Phone Jasvir León MD Primary Care Provider [phone] Jasvir León MD Unavailable [phone] Leora Pollard RN Unavailable [phone] Encounter Details Date Type Department Care Team (Late st Contact Info) Description 05/22/2024 Abstract [facility] 112 [facility] 110 [place] [address] Jasvir León MD 112 [facility] 110 [place] [address] Social History Tobacco Use Types Packs/Day Years [...] on filedocumented in this encounter Care Teams Floor Director Relationship Specialty Start Date End Date Jasvir León MD [address] [facility] 110 [place] [address] PCP - General Internal Medicine 11/20/22 Jasvir León MD [address] [facility] 110 [place] [address] PCP - ACO Reach 11/30/22 Leora Pollard, RN Registered Nurse Family Medicine 07/10/24 documented as of this encounter
--- OUTSIDE RECORDS SUMMARY | 2024-11-29 13:02 | XMS_ITS | Encounter Summary ---
Author Organization [facility] Address [address] [facility] [place] [address] Care Team Providers Care Oracle Solutions Architect Name Role Phone Jasvir León MD Primary Care Provider [phone] Jasvir León MD Unavailable [phone] Leora Pollard RN Unavailable [phone] Encounter Details Date Type Department Care Team (Late st Contact Info) Description 06/10/2024 Abstract [facility] 112 [facility] 110 [place] [address] Jasvir León MD 112 [facility] 110 [place] [address] Social History Tobacco Use Types Packs/Day Years [...] on filedocumented in this encounter Care Teams Oracle Solutions Architect Relationship Specialty Start Date End Date Jasvir León MD [address] [facility] 110 [place] [address] PCP - General Internal Medicine 11/20/22 Jasvir Lóen MD [address] [facility] 110 [place] [address] PCP - ACO Reach 11/30/22 Leora Pollard, RN Registered Nurse Family Medicine 07/10/24 documented as of this encounter
--- OUTSIDE RECORDS SUMMARY | 2024-11-29 13:02 | XMS_ITS | Encounter Summary ---
Author Organization [facility] Address [address] [facility] [place] [address] Care Team Providers Care Systems Technologist Name Role Phone Jasvir León MD Primary Care Provider [phone] Jasvir León MD Unavailable [phone] Leora Pollard RN Unavailable [phone] Encounter Details Date Type Department Care Team (Late st Contact Info) Description 11/21/2024 Abstract [facility] 112 [facility] 110 [place] [address] Jasvir León MD 112 [facility] 110 [place] [address] Social History Tobacco Use Types Packs/Day Years [...] How often do you attend chur or congregational services? 1 to 4 times per year 07/10/2024 Do you belong to any clubs o r organizations such as confucianist groups, unions, fraternal or athletic groups, or [...] Recorded Patient Health Questionnaire-2 Score 0 10/27/2024 [facility] [place] of Occupat ional Health - Occupational Stress [...] any time in the past 12 m [facility], were you homeless or living in a penitentiary (including now)? No 07/10/2024 Comments Unknown Sex and Gender Information Value Date Recorded Sex Assigned at Not on file Legal Sex Female 7:05 PM EDT Gender Identity Not on file Sexual Orientation Not on file documented as of this encounter Plan of Treatment Not on file documented as of this encounter Visit Diagnoses Not on filedocumented in this encounter Care Teams Systems Technologist Relationship Specialty Start Date End Date Jasvir León MD [address] [facility] 110 [place] [address] PCP - General Internal Medicine 11/20/22 Jasvir León MD [address] [facility] [address] [place] [address] PCP - ACO Reach 11/30/22 Leora Pollard, [place] Registered Nurse Family Medicine 07/10/24 documented as of this encounter
--- OUTSIDE RECORDS SUMMARY | 2024-11-29 13:02 | XMS_ITS | Encounter Summary ---
Author Organization [facility] Address [address] [place] [address] Care Team Providers Care Analysis Specialist Name Role Phone Jasvir León MD Primary Care Provider [phone] Jasvir León MD Unavailable [phone] Leora Pollard RN Unavailable [phone] Encounter Details Date Type Department Care Team (Late st Contact Info) Description 03/19/2023 Orders Only [facility] [address] [place] 110 [place] [id number] Ej Garcia MD [address] [place] [address] Social History Tobacco Use Types Packs/Day Years [...] Procedure Name Priority Date/Time Associated Diagnosis Comments XR LUMBAR SPINE 2-3 VIEWS Routine 03/04/2023 1:09 PM EDT documented in this encounter Results * XR lumbar spine 2 or 3 views (03/04/2023 1:09 PM EDT) Anatomical Region Laterality Modality Spine, L-spine Radiographic Irma ging us Ej Garcia MD IMG XR PROCEDURES Final Res ult documented in this encounter Visit Diagnoses Not on filedocumented in this encounter Care Teams Analysis Specialist Relationship Specialty Start Date End Date Jasvir León MD [address] [facility] 110 [place] [address] PCP - General Internal Medicine 11/20/22 Jasvir Lóen MD [address] [facility] 110 [place] [address] PCP - ACO Reach 11/30/22 Leora Pollard, [place] Registered Nurse Family Medicine 07/10/24 documented as of this encounter
--- OUTSIDE RECORDS SUMMARY | 2024-11-29 13:02 | XMS_ITS | Encounter Summary ---
Author Organization [facility] Address [address] [facility] [place] [address] Care Team Providers Care Supervisor Fine Grading Name Role Phone Jasvir León MD Primary Care Provider [phone] Jasvir León MD Unavailable [phone] Leora Pollard RN Unavailable [phone] Encounter Details Date Type Department Care Team (Late st Contact Info) Description 05/01/2024 Abstract [facility] 112 [facility] 110 [place] [address] Jasvir León MD 112 [facility] 110 [place] [address] Social History Tobacco Use Types Packs/Day Years [...] on filedocumented in this encounter Care Teams Supervisor Fine Grading Relationship Specialty Start Date End Date Jasvir León MD [address] [facility] 110 [place] [address] PCP - General Internal Medicine 11/20/22 Jasvir León MD [address] [facility] 110 [place] [address] PCP - ACO Reach 11/30/22 Leora Pollard, RN Registered Nurse Family Medicine 07/10/24 documented as of this encounter
--- OUTSIDE RECORDS SUMMARY | 2024-11-29 13:02 | XMS_ITS | Encounter Summary ---
Author Organization [facility] Address [address] [facility] [place] [address] Care Team Providers Care Beading Sawyer Name Role Phone Jasvir León MD Primary Care Provider [phone] Jasvir León MD Unavailable [phone] Leora Pollard RN Unavailable [phone] Encounter Details Date Type Department Care Team (Late st Contact Info) Description 05/27/2024 Abstract [facility] 112 [facility] 110 [place] [address] Jasvir León MD 112 [facility] 110 [place] [address] Social History Tobacco Use Types Packs/Day Years [...] on filedocumented in this encounter Care Teams Beading Sawyer Relationship Specialty Start Date End Date Jasvir León MD [address] [facility] 110 [place] [address] PCP - General Internal Medicine 11/20/22 Jasvir León MD [address] [facility] 110 [place] [address] PCP - ACO Reach 11/30/22 Leora Pollard, RN Registered Nurse Family Medicine 07/10/24 documented as of this encounter
--- OUTSIDE RECORDS SUMMARY | 2024-11-29 13:02 | XMS_ITS | Encounter Summary ---
Author Organization [facility] Address [address] [facility] [place] [address] Care Team Providers Care Thread Drawer Name Role Phone Jasvir León MD Primary Care Provider Jasvir León MD Unavailable Leora Pollard RN Unavailable [phone] Encounter Details Date Type Department Care Team (Late st Contact Info) Description 05/07/2024 Abstract [facility] 112 [facility] 110 [place] [address] Jasvir León MD 112 [facility] 110 [place] [address] Social History Tobacco Use Types Packs/Day Years [...] on filedocumented in this encounter Care Teams Thread Drawer Relationship Specialty Start Date End Date Jasvir León MD [address] [facility] 110 [place] [address] PCP - General Internal Medicine 11/20/22 Jasvir León MD [address] [facility] 110 [place] [address] PCP - ACO Reach 11/30/22 Leora Pollard, RN Registered Nurse Family Medicine 07/10/24 documented as of this encounter
--- OUTSIDE RECORDS SUMMARY | 2024-11-29 13:02 | XMS_ITS | Encounter Summary ---
Author Organization [facility] Address [address] [facility] [place] [address] Care Team Providers Care Boilermaker Central Steam Plant Name Role Phone Jasvir León MD Primary Care Provider Jasvir León MD Unavailable [phone] Leora Pollard RN Unavailable [phone] Encounter Details Date Type Department Care Team (Late st Contact Info) Description 06/02/2024 Abstract [facility] 112 [facility] 110 [place] [address] Jasvir León MD 112 [facility] 110 [place] [address] Social History Tobacco Use Types Packs/Day Years [...] on filedocumented in this encounter Care Teams Boilermaker Central Steam Plant Relationship Specialty Start Date End Date Jasvir León MD [address] [facility] 110 [place] [address] PCP - General Internal Medicine 11/20/22 Jasvir León MD [address] [facility] 110 [place] [address] PCP - ACO Reach 11/30/22 Leora Pollard, RN Registered Nurse Family Medicine 07/10/24 documented as of this encounter
--- OUTSIDE RECORDS SUMMARY | 2024-11-29 13:02 | XMS_ITS | Encounter Summary ---
Author Organization [facility] Address [address] [facility] [place] [address] Care Team Providers Care Pricing Consultant Name Role Phone Jasvir León MD Primary Care Provider [phone] Jasvir León MD Unavailable [phone] Leora Pollard RN Unavailable Encounter Details Date Type Department Care Team (Late st Contact Info) Description 11/25/2024 Abstract [facility] 112 [facility] 110 [place] [address] Jasvir León MD 112 [facility] 110 [place] [address] Social History Tobacco Use Types Packs/Day Years [...] How often do you attend chur or gnosticism services? 1 to 4 times per year 07/10/2024 Do you belong to any clubs o r organizations such as yarsanism groups, unions, fraternal or athletic groups, or [...] Recorded Patient Health Questionnaire-2 Score 0 10/27/2024 [facility] [place] of Occupat ional Health - Occupational Stress [...] any time in the past 12 m [facility], were you homeless or living in a m[facility] (including now)? No 07/10/2024 Comments Unknown Sex and Gender Information Value Date Recorded Sex Assigned at Not on file Legal Sex Female 7:05 PM EDT Gender Identity Not on file Sexual Orientation Not on file documented as of this encounter Plan of Treatment Not on file documented as of this encounter Visit Diagnoses Not on filedocumented in this encounter Care Teams Pricing Consultant Relationship Specialty Start Date End Date Jasvir León MD [address] [facility] 110 [place] [address] PCP - General Internal Medicine 11/20/22 Jasvir León MD [address] [facility] [address] [place] [address] PCP - ACO Reach 11/30/22 Leora Pollard, [place] Registered Nurse Family Medicine 07/10/24 documented as of this encounter
--- OUTSIDE RECORDS SUMMARY | 2024-11-29 13:02 | XMS_ITS | Encounter Summary ---
Author Organization [facility] Address [address] [facility] [place] [address] Care Team Providers Care Rotary Cutter Operator Name Role Phone Jasvir León MD Primary Care Provider [phone] Jasvir León MD Unavailable [phone] Leora Pollard RN Unavailable [phone] Encounter Details Date Type Department Care Team (Late st Contact Info) Description 05/08/2024 Abstract [facility] [address] [facility] 110 [place] [address] Jasvir León MD 112 [facility] 110 [place] [address] Social History Tobacco Use Types Packs/Day Years [...] on filedocumented in this encounter Care Teams Rotary Cutter Operator Relationship Specialty Start Date End Date Jasvir León MD [address] [facility] 110 [place] [address] PCP - General Internal Medicine 11/20/22 Jasvir León MD [address] [facility] 110 [place] [address] PCP - ACO Reach 11/30/22 Leora Pollard, RN Registered Nurse Family Medicine 07/10/24 documented as of this encounter
--- OUTSIDE RECORDS SUMMARY | 2024-11-29 13:02 | XMS_ITS | Encounter Summary ---
Author Organization [facility] Address [address] [facility] [place] [address] Care Team Providers Care Green Belt Name Role Phone Jasvir León MD Primary Care Provider [phone] Jasvir León MD Unavailable [phone] Leora Pollard RN Unavailable [phone] Encounter Details Date Type Department Care Team (Late st Contact Info) Description 06/11/2024 Abstract [facility] 112 [facility] 110 [place] [address] Jasvir León MD 112 [facility] 110 [place] [address] Social History Tobacco Use Types Packs/Day Years [...] on filedocumented in this encounter Care Teams Green Belt Relationship Specialty Start Date End Date Jasvir León MD [address] [facility] 110 [place] [address] PCP - General Internal Medicine 11/20/22 Jasvir León MD [address] [facility] [address] [place] [address] PCP - ACO Reach 11/30/22 Leora Pollard, RN Registered Nurse Family Medicine 07/10/24 documented as of this encounter
--- OUTSIDE RECORDS SUMMARY | 2024-11-29 13:02 | XMS_ITS | Encounter Summary ---
Author Organization [facility] Address [address] [facility] [place] [address] Care Team Providers Care Marine Engine Mechanic Name Role Phone Jasvir León MD Primary Care Provider [phone] Jasvir León MD Unavailable [phone] Leora Pollard RN Unavailable [phone] Encounter Details Date Type Department Care Team (Late st Contact Info) Description 05/20/2024 Abstract [facility] 112 [facility] 110 [place] [address] Jasvir León MD 112 [facility] 110 [place] [address] Social History Tobacco Use Types Packs/Day Years [...] on filedocumented in this encounter Care Teams Marine Engine Mechanic Relationship Specialty Start Date End Date Jasvir León MD [address] [facility] 110 [place] [address] PCP - General Internal Medicine 11/20/22 Jasvir León MD [address] [facility] 110 [place] [address] PCP - ACO Reach 11/30/22 Leora Pollard, RN Registered Nurse Family Medicine 07/10/24 documented as of this encounter
--- OUTSIDE RECORDS SUMMARY | 2024-11-29 13:02 | XMS_ITS | Encounter Summary ---
Author Organization [facility] Address [address] [facility] [place] [address] Care Team Providers Care Silverware Supervisor Name Role Phone Jasvir León MD Primary Care Provider [phone] Jasvir León MD Unavailable [phone] Leora Pollard RN Unavailable [phone] Encounter Details Date Type Department Care Team (Late st Contact Info) Description 06/24/2024 Clinisync Result Encounter [facility] External Department Unsolicited Provider, Generic External Data Social History Tobacco Use Types Packs/Day Years [...] Name Priority Date/Time Associated Diagnosis Comments XR CHEST 2V 06/24/2024 7:34 AM EST documented in this encounter Results * XR CHEST 2V (06/24/2024 7:34 AM EST) Anatomical Region Laterality Modality Other 06/24/2024 7:34 AM EST Narrative 06/24/2024 7:36 [place] [address] XRay Report Signed Patient: KATHY VILLEGAS MR#: [id number] : 1940 Acct:[id number] Age/Sex: 84 / F ADM Date: 06/23/24 Loc: LAB Attending Dr: JOSEFINA CHAO Ordering Physician: JOSEFINA CHAO Date of Service: 06/23/24 Procedure(s): XR chest 2V Accession Number(s): [id number] cc: JASVIR LEÓN ; JOSEFINA CHAO [place] [address] Patient Name: KATHY VILLEGAS MRN: [id number] date: 1940 Sex: F Assigned Patient Location: LAB Current Patient Location: Accession/Order Number: [id number] Exam Date: 06/23/2024 14:15 Report Date: 06/24/2024 07:34 At the request of: JOSEFINA CHAO Procedure: XR chest 2V EXAMINATION: XR chest 2V HISTORY: Chest Trauma COMPARISON: 04/24/2024 TECHNIQUE: PA and lateral FINDINGS: LUNGS: Moderate focal infiltrate identified in the left lower lobe VASCULATURE: No increased pulmonary vasculature. PLEURA: No pneumothorax, effusion, or pleural thickening. CARDIAC: No cardiomegaly or cardiac silhouette abnormality. MEDIASTINUM: No visible mass or adenopathy. Median sternotomy closure devices BONES: Fracture of the right posterior sixth rib and left posterior seventh and eighth ribs OTHER: Negative. XR/XR chest 2V IMPRESSION: Moderate left lower lobe opacity, indeterminate. Consider CT follow-up New right posterior sixth rib fracture with stable left rib fractures Electronically authenticated by: MEENA HAWKINS Date: 06/24/2024 07:34 Dictated By: Meena Hawkins M.D. Signed By: 06/24/2436 DD/ 3 TD/TT: Pipe Insulator: Procedure Note Radiology, Radiologist, MD - 06/24/[address] [address] XRay Report Signed Patient: KATHY VILLEGAS MMR#: [id number] : 1940cct:[id number] Age/Sex: 84 / FADM Date: 06/23/24 Loc: LAB Attending Dr: JOSEFINA CHAO Ordering Physician: JOSEFINA HCAO Date of Service: 06/23/24 Procedure(s): XR chest 2V Accession Number(s): [id number] cc: JASVIR LEÓN ; JOSEFINA CHAO [address] [address] Patient Name: KATHY VILLEGAS MRN: [id number] date: 1940 Sex: F Assigned Patient Location: LAB Current Patient Location: Accession/Order Number: [id number] Exam Date: 06/23/2024 14:15 Report Date: 06/24/2024 07:34 At the request of: JOSEFINA CHAO Procedure: XR chest 2V EXAMINATION: XR chest 2V HISTORY: Chest Trauma COMPARISON: 04/24/2024 TECHNIQUE: PA and lateral FINDINGS: LUNGS: Moderate focal infiltrate identified in the left lower lobe VASCULATURE: No increased pulmonary vasculature. PLEURA: No pneumothorax, effusion, or pleural thickening. CARDIAC: No cardiomegaly or cardiac silhouette abnormality. MEDIASTINUM: No visible mass or adenopathy. Median sternotomy closuredevices BONES: Fracture of the right posterior sixth rib and left posteriorseventh and eighth ribs OTHER: Negative. XR/XR chest 2V IMPRESSION: Moderate left lower lobe opacity, indeterminate. Consider CT follow-up New right posterior sixth rib fracture with stable left rib fractures Electronically authenticated by: MEENA HAWKINS Date: 06/24/2024 07:34 Dictated By: Meena Hawkins M.D. Signed By:06/24/2436 DD/ 3 TD/TT: Pipe Insulator: us Generic External Data Provider [facility] Final Result documented in this encounter Visit Diagnoses Not on filedocumented in this encounter Care Teams Silverware Supervisor Relationship Specialty Start Date End Date Jasvir León MD [address] [facility] 110 [place] [address] PCP - General Internal Medicine 11/20/22 Jasvir León MD [address] [facility] 110 [place] [address] PCP - ACO Reach 11/30/22 Leora Pollard, [place] Registered Nurse Family Medicine 07/10/24 documented as of this encounter
--- OUTSIDE RECORDS SUMMARY | 2024-11-29 13:02 | XMS_ITS | Encounter Summary ---
Author Organization [facility] Address [address] [facility] [place] [address] Care Team Providers Care Associate Account Director Name Role Phone Jasvir León MD Primary Care Provider [phone] Jasvir León MD Unavailable [phone] Leora Pollard RN Unavailable [phone] Encounter Details Date Type Department Care Team (Late st Contact Info) Description 06/10/2024 Abstract [facility] 112 [facility] 110 [place] [address] Jasvir León MD 112 [facility] 110 [place] [address] Social History Tobacco Use Types Packs/Day Years [...] on filedocumented in this encounter Care Teams Associate Account Director Relationship Specialty Start Date End Date Jasvir León MD [address] [facility] 110 [place] [address] PCP - General Internal Medicine 11/20/22 Jasvir León MD [address] [facility] 110 [place] [address] PCP - ACO Reach 11/30/22 Leora Pollard, RN Registered Nurse Family Medicine 07/10/24 documented as of this encounter
--- OUTSIDE RECORDS SUMMARY | 2024-11-29 13:02 | XMS_ITS | Encounter Summary ---
Author Organization [facility] Address [address] [facility] [place] [address] Care Team Providers Care Employee Relations Director Name Role Phone Jasvir León MD Primary Care Provider [phone] Jasvir León MD Unavailable [phone] Leroa Pollard RN Unavailable [phone] Encounter Details Date Type Department Care Team (Late st Contact Info) Description 06/19/2024 Abstract [facility] [address] [facility] 110 [place] [address] Jasvir León MD 112 [facility] 110 [place] [address] Social History Tobacco Use Types Packs/Day Years [...] on filedocumented in this encounter Care Teams Employee Relations Director Relationship Specialty Start Date End Date Jasvir León MD [address] [facility] 110 [place] [address] PCP - General Internal Medicine 11/20/22 Jasvir León MD [address] [facility] 110 [place] [address] PCP - ACO Reach 11/30/22 Leora Pollard, RN Registered Nurse Family Medicine 07/10/24 documented as of this encounter
--- OUTSIDE RECORDS SUMMARY | 2024-11-29 13:02 | XMS_ITS | Encounter Summary ---
Author Organization [facility] Address [address] [facility] [place] [address] Care Team Providers Care Latexer Name Role Phone Jasvir León MD Primary Care Provider [phone] Jasvir León MD Unavailable [phone] Leora Pollard RN Unavailable [phone] Encounter Details Date Type Department Care Team (Late st Contact Info) Description 11/27/2024 Abstract [facility] 112 [facility] 110 [place] [address] Jasvir León MD 112 [facility] 110 [place] [address] Social History Tobacco Use Types Packs/Day Years [...] How often do you attend chur or congregation services? 1 to 4 times per year 07/10/2024 Do you belong to any clubs o r organizations such as voodoo groups, unions, fraternal or athletic groups, or [...] Recorded Patient Health Questionnaire-2 Score 0 10/27/2024 [facility] [place] of Occupat ional Health - Occupational Stress [...] any time in the past 12 m [facility], were you homeless or living in a usp (including now)? No 07/10/2024 Comments Unknown Sex and Gender Information Value Date Recorded Sex Assigned at Not on file Legal Sex Female 7:05 PM EDT Gender Identity Not on file Sexual Orientation Not on file documented as of this encounter Plan of Treatment Not on file documented as of this encounter Visit Diagnoses Not on filedocumented in this encounter Care Teams Latexer Relationship Specialty Start Date End Date Jasvir León MD [address] [facility] 110 [place] [address] PCP - General Internal Medicine 11/20/22 Jasvir León MD [address] [facility] [address] [place] [address] PCP - ACO Reach 11/30/22 Leora Pollard, [place] Registered Nurse Family Medicine 07/10/24 documented as of this encounter
--- OUTSIDE RECORDS SUMMARY | 2024-11-29 13:02 | XMS_ITS | Encounter Summary ---
Author Organization [facility] Address [address] [facility] [place] [address] Care Team Providers Care Jewel Diameter Gauger Name Role Phone Jasvir León MD Primary Care Provider [phone] Jasvir León MD Unavailable [phone] Leora Pollard RN Unavailable [phone] Encounter Details Date Type Department Care Team (Late st Contact Info) Description 05/09/2024 Abstract [facility] 112 [facility] 110 [place] [address] Jasvir León MD 112 [facility] 110 [place] [address] Social History Tobacco Use Types Packs/Day Years [...] on filedocumented in this encounter Care Teams Jewel Diameter Gauger Relationship Specialty Start Date End Date Jasvir León MD [address] [facility] 110 [place] [address] PCP - General Internal Medicine 11/20/22 Jasvir León MD [address] [facility] 110 [place] [address] PCP - ACO Reach 11/30/22 Leora Pollard, RN Registered Nurse Family Medicine 07/10/24 documented as of this encounter
--- OUTSIDE RECORDS SUMMARY | 2024-11-29 13:02 | XMS_ITS | Encounter Summary ---
Author Organization [facility] Address [address] [facility] [place] [address] Care Team Providers Care Supervisor Inventory Merchandising Name Role Phone Jasvir León MD Primary Care Provider [phone] Jasvir León MD Unavailable [phone] Leora Pollard RN Unavailable [phone] Encounter Details Date Type Department Care Team (Late st Contact Info) Description 01/30/2023 Abstract [facility] 112 [facility] 110 [place] [address] Jasvir León MD [address] [facility] 110 [place] [address] Social History Tobacco Use Types Packs/Day Years [...] filedocumented in this encounter Care Teams Supervisor Inventory Merchandising Relationship Specialty Start Date End Date Jasvir León MD [address] [facility] 110 [place], [place] [address] PCP - General Internal Medicine 11/20/22 Jasvir León MD 112 [facility] 110 [place] [address] PCP - ACO Reach 11/30/22 Leora Pollard, RN Registered Nurse Family Medicine 07/10/24 documented as of this encounter
--- OUTSIDE RECORDS SUMMARY | 2024-11-29 13:02 | XMS_ITS | Encounter Summary ---
Author Organization [facility] Address [address] [facility] [place] [address] Care Team Providers Care Neighborhood Worker Name Role Phone Jasvir León MD Primary Care Provider [phone] Jasvir León MD Unavailable [phone] Leora Pollard RN Unavailable [phone] Encounter Details Date Type Department Care Team (Late st Contact Info) Description 03/08/2023 Orders Only [facility] [address] [facility] 110 [place] [address] A, Unknown Practice [address] [place] [id number] Social History Tobacco Use Types Packs/Day [...] Procedure Name Priority Date/Time Associated Diagnosis Comments MRI LUMBAR SPINE WO CONTRAST Routine 03/08/2023 3:37 PM EDT documented in this encounter Results * MRI LUMBAR SPINE WO CONTRAST (03/08/2023 3:37 PM EDT) Anatomical Region Laterality Modality Radiographic Irma ging us Unknown Practice A IMG XR PROCEDURES Final Resul t documented in this encounter Visit Diagnoses Not on filedocumented in this encounter Care Teams Neighborhood Worker Relationship Specialty Start Date End Date Jasvir León MD [address] [facility] 110 [place] [address] PCP - General Internal Medicine 11/20/22 Jasvir León MD [address] [facility] 110 [place] [address] PCP - ACO Reach 11/30/22 Leora Pollard, RN Registered Nurse Family Medicine 07/10/24 documented as of this encounter
--- OUTSIDE RECORDS SUMMARY | 2024-11-29 13:02 | XMS_ITS | Encounter Summary ---
Author Organization [facility] Address [address] [facility] [place] [address] Care Team Providers Care Frame Table Operator Helper Name Role Phone Jasvir León MD Primary Care Provider [phone] Jasvir León MD Unavailable [phone] Leora Pollard RN Unavailable [phone] Encounter Details Date Type Department Care Team (Late st Contact Info) Description 05/06/2024 Abstract [facility] 112 [facility] 110 [place] [address] Jasvir León MD 112 [facility] 110 [place] [address] Social History Tobacco Use Types Packs/Day Years [...] on filedocumented in this encounter Care Teams Frame Table Operator Helper Relationship Specialty Start Date End Date Jasvir León MD [address] [facility] 110 [place] [address] PCP - General Internal Medicine 11/20/22 Jasvir León MD [address] [facility] [address] [place] [address] PCP - ACO Reach 11/30/22 Leora Pollard, RN Registered Nurse Family Medicine 07/10/24 documented as of this encounter
--- OUTSIDE RECORDS SUMMARY | 2024-11-29 13:02 | XMS_ITS | Encounter Summary ---
Author Organization [facility] Address [address] [facility] [place] [address] Care Team Providers Care Bottom Scrubber Name Role Phone Jasvir León MD Primary Care Provider [phone] Jasvir León MD Unavailable [phone] Leora Pollard RN Unavailable [phone] Encounter Details Date Type Department Care Team (Late st Contact Info) Description 06/23/2024 Abstract [facility] 112 [facility] 110 [place] [address] Jasvir León MD 112 [facility] 110 [place] [address] Social History Tobacco Use Types Packs/Day Years [...] on filedocumented in this encounter Care Teams Bottom Scrubber Relationship Specialty Start Date End Date Jasvir León MD [address] [facility] 110 [place] [address] PCP - General Internal Medicine 11/20/22 Jasvir León MD [address] [facility] 110 [place] [address] PCP - ACO Reach 11/30/22 Leora Pollard, RN Registered Nurse Family Medicine 07/10/24 documented as of this encounter
--- OUTSIDE RECORDS SUMMARY | 2024-11-29 13:02 | XMS_ITS | Encounter Summary ---
Author Organization [facility] Address [address] [facility] [place] [address] Care Team Providers Care Television Servicer Name Role Phone Jasvir León MD Primary Care Provider [phone] Jasvir León MD Unavailable [phone] Leora Pollard RN Unavailable [phone] Encounter Details Date Type Department Care Team (Late st Contact Info) Description 06/11/2024 Abstract [facility] [address] [facility] 110 [place] [address] Jasvir León MD 112 [facility] 110 [place] [address] Social History Tobacco Use Types Packs/Day Years [...] on filedocumented in this encounter Care Teams Television Servicer Relationship Specialty Start Date End Date Jasvir León MD [address] [facility] 110 [place] [address] PCP - General Internal Medicine 11/20/22 Jasvir León MD [address] [facility] 110 [place] [address] PCP - ACO Reach 11/30/22 Leora Pollard, RN Registered Nurse Family Medicine 07/10/24 documented as of this encounter
--- OUTSIDE RECORDS SUMMARY | 2024-11-29 13:02 | XMS_ITS | Encounter Summary ---
Author Organization [facility] Address [address] [facility] [place] [address] Care Team Providers Care Machine Long Goods Helper Name Role Phone Jasvir León MD Primary Care Provider [phone] Jasvir León MD Unavailable [phone] Leora Pollard RN Unavailable [phone] Encounter Details Date Type Department Care Team (Late st Contact Info) Description 05/09/2024 Abstract [facility] [address] [facility] 110 [place] [address] Jasvir León MD 112 [facility] 110 [place] [address] Social History Tobacco Use Types Packs/Day Years [...] on filedocumented in this encounter Care Teams Machine Long Goods Helper Relationship Specialty Start Date End Date Jasvir León MD [address] [facility] 110 [place] [address] PCP - General Internal Medicine 11/20/22 Jasvir León MD [address] [facility] 110 [place] [address] PCP - ACO Reach 11/30/22 Leora Pollard, RN Registered Nurse Family Medicine 07/10/24 documented as of this encounter
--- OUTSIDE RECORDS SUMMARY | 2024-11-29 13:02 | XMS_ITS | Encounter Summary ---
Author Organization [facility] Address [address] [facility] [place] [address] Care Team Providers Care Mortgage Professional Name Role Phone Jasvir León MD Primary Care Provider [phone] Jasvir León MD Unavailable [phone] Leora Pollard RN Unavailable [phone] Encounter Details Date Type Department Care Team (Late st Contact Info) Description 06/19/2024 Abstract [facility] 112 [facility] 110 [place] [address] Jasvir León MD 112 [facility] 110 [place] [address] Social History Tobacco Use Types Packs/Day Years [...] on filedocumented in this encounter Care Teams Mortgage Professional Relationship Specialty Start Date End Date Jasvir León MD [address] [facility] 110 [place] [address] PCP - General Internal Medicine 11/20/22 Jasvir León MD [address] [facility] 110 [place] [address] PCP - ACO Reach 11/30/22 Leora Pollard, RN Registered Nurse Family Medicine 07/10/24 documented as of this encounter
--- OUTSIDE RECORDS SUMMARY | 2024-11-29 13:02 | XMS_ITS | Encounter Summary ---
Author Organization [facility] Address [address] [facility] [place] [address] Care Team Providers Care Bio Medical Technician Name Role Phone Jasvir León MD Primary Care Provider [phone] Jasvir León MD Unavailable [phone] Leora Pollard RN Unavailable [phone] Encounter Details Date Type Department Care Team (Late st Contact Info) Description 05/09/2024 Abstract [facility] 112 [facility] 110 [place] [address] Jasvir León MD 112 [facility] 110 [place] [address] Social History Tobacco Use Types Packs/Day Years [...] on filedocumented in this encounter Care Teams Bio Medical Technician Relationship Specialty Start Date End Date Jasvir León MD [address] [facility] 110 [place] [address] PCP - General Internal Medicine 11/20/22 Jasvir León MD [address] [facility] 110 [place] [address] PCP - ACO Reach 11/30/22 Leora Pollard, RN Registered Nurse Family Medicine 07/10/24 documented as of this encounter
--- OUTSIDE RECORDS SUMMARY | 2024-11-29 13:02 | XMS_ITS | Encounter Summary ---
Author Organization [facility] Address [address] [facility] [place] [address] Care Team Providers Care Tectonophysicist Name Role Phone Jasvir León MD Primary Care Provider [phone] Jasvir León MD Unavailable [phone] Leora Pollard RN Unavailable [phone] Encounter Details Date Type Department Care Team (Late st Contact Info) Description 05/07/2024 Clinisync Result Encounter [facility] External Department Unsolicited [...] Procedure Name Priority Date/Time Associated Diagnosis Comments CA ECHO DOPPLER COMPLETE 05/07/2024 6:15 PM EDT documented in this encounter Results * CA ECHO DOPPLER COMPLETE (05/07/2024 6:15 PM EDT) Anatomical Region Laterality Modality Other 05/07/2024 6:15 PM EDT Narrative 05/07/2024 6:16 [place] [address] Cardiology Report Signed Patient: KATHY VILLEGAS MR#: [id number] : 1940 Acct:[id number] Age/Sex: 84 / F ADM Date: 05/07/24 Loc: CARD Attending Dr: JOSEFINA CHAO Ordering Physician: JOSEFINA CHAO Date of Service: 05/07/24 Procedure(s): CA echo doppler complete Accession Number(s): [id number] cc: JASVIR LEÓN ; JOSEFINA CHAO Patient Name: KATHY VILLEGAS MR#: [id number] : 1940 Exam Date: 05/07/2024 Ordering Doctor: DR JOSEFINA CHAO M.D. ECHOCARDIOGRAM REPORT PROCEDURE: CA ECHO DOPPLER COMPLETE INDICATIONS: Chronic diastolic heart failure, pulmonary hypertension COMPARISON: None. DESCRIPTION: COMPLETE ECHOCARDIOGRAM Real-time transthoracic echocardiography with 2D, M-mode, spectral and color flow Doppler performed. QUALITY: Technical quality was good. LEFT VENTRICLE: Normal chamber size. Moderate concentric left ventricular hypertrophy. Global left ventricular systolic function is normal.Estimated left ventricular ejection fraction is 50-55%. Abnormal septal motion due to right ventricle pressure/volume overload LV EF: DIASTOLIC: ATRIAL SEPTUM: ASD vs PFO Doppler studies reveal an intra-cardiac shunt. Unable to calculate QP:QS accurately due to severe aortic stenosis LEFT ATRIUM: Severe dilatation. RIGHT ATRIUM: Severe dilatation. RIGHT VENTRICLE: Moderate dilatation. Decreased right ventricular systolic function. TRICUSPID VALVE: Normal mobility and thickness. No stenosis with severe regurgitation. Severe pulmonary hypertension.RVSP 85mmHg MITRAL VALVE: Thickened with decreased mobility. Mild mitral valve stenosis( Mean PG 3 mmHg, MVA by P1/2 time 2.6 cm2). Moderate mitral annular calcification. Mild mitral regurgitation. AORTIC VALVE: Bio-Prosthetic valve appears well seated in the aortic position with abnormal doppler flow. Severely diminished mobility. Doppler velocity suggest severe aortic valve stenosis. Severe stenosis of the bioprosthetic valve. DVI 0.14, FELICITA 0.4cm2, Vmax 3.6m/s, Mean gradient 28mmHg. Mild aortic regurgitation. AORTIC ROOT: Normal diameter and appearance. PULMONIC VALVE: Normal thickness and mobility. No stenosis. Trivial regurgitation. PERICARDIUM: No evidence of pericardial effusion. IVC: Mild dilatation. Measuring 2.2cm, with partial collapse. PLEURA: CONCLUSION: Moderate concentric left ventricular hypertrophy. Global left ventricular systolic function is normal. Estimated left ventricular ejection fraction is 50-55%. Abnormal septal motion due to right ventricle pressure/volume overload ASD vs PFO: Doppler studies reveal an intra-cardiac shunt. Unable to calculate QP:QS accurately due to severe aortic stenosis Moderate right ventricle dilatation. Decreased right ventricular systolic function Severe tricuspid regurgitation. Severe pulmonary hypertension.RVSP 85mmHg Mild mitral valve stenosis( Mean PG 3 mmHg, MVA by P1/2 time 2.6 cm2). Moderate mitral annular calcification. Mild mitral regurgitation. 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 DVI 0.14, FELICITA 0.4cm2, Vmax 3.6m/s, Mean gradient 28mmHg. Mild aortic regurgitation. Adult Echocardiography Procedure Report Left Ventricle LVEDD (3.7 - 5.6 cm): 3.42 cm LVESD (2.2 - 4.0 cm): 2.64 cm LVIVS thickness (0.6 - 1.2 cm): 1.45 cm LVPW thickness (0.5 - 1.0 cm): 1.47 cm e': 0.10 m/s E - e': 16.16 LVOT Max Gradient: 1.08 mm[Hg] LVOT Area (cm2): 0.52 m/s Peak Velocity (LVOT): 0.52 m/s Mean Velocity (LVOT): 0.33 m/s LVOT Diameter 1.83 cm Left Ventricular Ejection Fraction: 59.74 % Left Atrium LA Volume Index (2D A2C): 52.36 ml/m2 Left Atrium Systolic Dimension: 5.51 cm Mitral Valve MV E to A Ratio: MV Max Gradient: MV Mean Gradient: Mitral Valve A-Wave Peak Velocity: Mitral Valve E-Wave Peak Velocity: 1.67 m/s Cardiovascular Orifice Area: Right Ventricle RV Internal Diastolic Dimension: 4.32 cm, 4.29 cm Aorta AO Root Diam: 2.54 cm Ascending Ao Diam: 3.08 cm Aortic Valve AoV Area (Peak Merrick): 0.39 cm2, 0.38 cm2, 0.41 cm2, 0.41 cm2 AoV Area (VTI): 0.39 cm2, 0.37 cm2 Deceleration Blount: 2.99 m/s2 Pressure Half-Time: 341.35 ms Peak Velocity(Antegrade Flow): 3.62 m/s, 3.24 m/s, 3.55 m/s, 3.32 m/s Peak Gradient(Antegrade Flow): 52.50 mm[Hg], 41.89 mm[Hg], 50.44 mm[Hg], 44.00 mm[Hg] Mean Velocity(Antegrade Flow): 2.44 m/s, 2.33 m/s, 2.58 m/s Mean Gradient(Antegrade Flow): 27.89 mm[Hg], 24.83 mm[Hg], 30.31 mm[Hg] Velocity Time Integral: 79.76 cm, 68.62 cm, 78.70 cm Tricuspid Valve Peak Velocity (Regurgitant Flow): 3.90 m/s, 3.77 m/s, 4.07 m/s, 4.68 m/s, 4.51 m/s, 4.19 m/s Peak Velocity: Pulmonic Valve Mean Gradient: 2.96 mm[Hg], 3.24 mm[Hg], 3.27 mm[Hg] Mean Velocity: 0.81 m/s, 0.85 m/s, 0.81 m/s Peak Velocity: 1.30 m/s Peak Gradient: 5.68 mm[Hg], 6.80 mm[Hg], 7.94 mm[Hg] Right Atrium Right Atrium Systolic Pressure: 105.05 ml, 105.05 ml Dictated by: Pankaj Todd MD on 05/07/2024 at 17:41 Approved by: Pankaj Todd MD on 05/07/2024 at 18:15 Dictated By: Pankaj Todd M.D. Signed By: 05/07/241815 DD/ 14 TD/TT: Knifer Up: Procedure Note Radiology, Radiologist, - 05/07/2024 [place] [address] Cardiology Report Signed Patient: KATHY VILLEGAS [facility]#: [id number] : [birth year]Acct:[id number] Age/Sex: 84 / FADM Date: 05/07/24 Loc: CARD Attending Dr: JOSEFINA CHAO Ordering Physician: JOSEFINA CHAO Date of Service: 05/07/24 Procedure(s): CA echo doppler complete Accession Number(s): [id number] cc: JASVIR LEÓN ; JOSEFINA CHAO Patient Name: KATHY VILLEGAS MR#: [id number] : 1940 Exam Date: 05/07/2024 Ordering Doctor: DR JOSEFINA CHAO M.D. ECHOCARDIOGRAM REPORT PROCEDURE: CA ECHO DOPPLER COMPLETE INDICATIONS: Chronic diastolic heart failure, pulmonary hypertension COMPARISON: None. DESCRIPTION: COMPLETE ECHOCARDIOGRAM Real-time transthoracic echocardiography with 2D, M-mode, spectral and color flow Dopplerperformed. QUALITY: Technical quality was good. LEFT VENTRICLE: Normal chamber size. Moderate concentric leftventricular hypertrophy. Global left ventricular systolic function is normal.Estimated left ventricular ejection fraction is 50-55%. Abnormal septal motion dueto right ventricle pressure/volume overload LV EF: DIASTOLIC: ATRIAL SEPTUM: ASD vs PFO Doppler studies reveal an intra-cardiacshunt. Unable to calculate QP:QS accurately due to severe aortic stenosis LEFT ATRIUM: Severe dilatation. RIGHT ATRIUM: Severe dilatation. RIGHT VENTRICLE: Moderate dilatation. Decreased right ventricularsystolic function. TRICUSPID VALVE: Normal mobility and thickness. No stenosis withsevere regurgitation. Severe pulmonary hypertension.RVSP 85mmHg MITRAL VALVE: Thickened with decreased mobility. Mild mitral valve stenosis( Mean PG 3 mmHg, MVA by P1/2 time 2.6 cm2). Moderate mitralannular calcification. Mild mitral regurgitation. AORTIC VALVE: Bio-Prosthetic valve appears well seated in the aortic position with abnormal doppler flow. Severely diminished mobility.Doppler velocity suggest severe aortic valve stenosis. Severe stenosis of the bioprosthetic valve. DVI 0.14, FELICITA 0.4cm2, Vmax 3.6m/s, Mean [id number]. Mild aortic regurgitation. AORTIC ROOT: Normal diameter and appearance. PULMONIC VALVE: Normal thickness and mobility. No stenosis. Trivial regurgitation. PERICARDIUM: No evidence of pericardial effusion. IVC: Mild dilatation. Measuring 2.2cm, with partial collapse. PLEURA: CONCLUSION: Moderate concentric left ventricular hypertrophy. Global left ventricular systolic function is normal. Estimated left ventricular ejection fraction is 50-55%. Abnormal septal motion due to right ventricle pressure/volume overload ASD vs PFO: Doppler studies reveal an intra-cardiac shunt. Unable to calculate QP:QS accurately due to severe aortic stenosis Moderate right ventricle dilatation. Decreased right ventricular systolic function Severe tricuspid regurgitation. Severe pulmonary hypertension.RVSP 85mmHg Mild mitral valve stenosis( Mean PG 3 mmHg, MVA by P1/2 time 2.6 cm2). Moderate mitral annular calcification. Mild mitral regurgitation. Bio-Prosthetic aortic valve. Doppler velocity suggest severe stenosis ofthe bioprosthetic valve. DVI 0.14, FELICITA 0.4cm2, Vmax 3.6m/s, Mean gradient 28mmHg. Mild aortic regurgitation. Adult Echocardiography Procedure Report Left Ventricle LVEDD (3.7 - 5.6 cm): 3.42 cm LVESD (2.2 - 4.0 cm): 2.64 cm LVIVS thickness (0.6 - 1.2 cm): 1.45 cm LVPW thickness (0.5 - 1.0 cm): 1.47 cm e': 0.10 m/s E - e': 16.16 LVOT Max Gradient: 1.08 mm[Hg] LVOT Area (cm2): 0.52 m/s Peak Velocity (LVOT): 0.52 m/s Mean Velocity (LVOT): 0.33 m/s LVOT Diameter 1.83 cm Left Ventricular Ejection Fraction: 59.74 % Left Atrium LA Volume Index (2D A2C): 52.36 ml/m2 Left Atrium Systolic Dimension: 5.51 cm Mitral Valve MV E to A Ratio: MV Max Gradient: MV Mean Gradient: Mitral Valve A-Wave Peak Velocity: Mitral Valve E-Wave Peak Velocity: 1.67 m/s Cardiovascular Orifice Area: Right Ventricle RV Internal Diastolic Dimension: 4.32 cm, 4.29 cm Aorta AO Root Diam: 2.54 cm Ascending Ao Diam: 3.08 cm Aortic Valve AoV Area (Peak Merrick): 0.39 cm2, 0.38 cm2, 0.41 cm2, 0.41 cm2 AoV Area (VTI): 0.39 cm2, 0.37 cm2 Deceleration Blount: 2.99 m/s2 Pressure Half-Time: 341.35 ms Peak Velocity(Antegrade Flow): 3.62 m/s, 3.24 m/s, 3.55 m/s, 3.32 m/s Peak Gradient(Antegrade Flow): 52.50 mm[Hg], 41.89 mm[Hg], 50.44mm[Hg], 44.00 mm[Hg] Mean Velocity(Antegrade Flow): 2.44 m/s, 2.33 m/s, 2.58 m/s Mean Gradient(Antegrade Flow): 27.89 mm[Hg], 24.83 mm[Hg], 30.31mm[Hg] Velocity Time Integral: 79.76 cm, 68.62 cm, 78.70 cm Tricuspid Valve Peak Velocity (Regurgitant Flow): 3.90 m/s, 3.77 m/s, 4.07 m/s, 4.68m/s, 4.51 m/s, 4.19 m/s Peak Velocity: Pulmonic Valve Mean Gradient: 2.96 mm[Hg], 3.24 mm[Hg], 3.27 mm[Hg] Mean Velocity: 0.81 m/s, 0.85 m/s, 0.81 m/s Peak Velocity: 1.30 m/s Peak Gradient: 5.68 mm[Hg], 6.80 mm[Hg], 7.94 mm[Hg] Right Atrium Right Atrium Systolic Pressure: 105.05 ml, 105.05 ml Dictated by: Pankaj Todd MD on 05/07/2024 at 17:41 Approved by: Pankaj Todd MD on 05/07/2024 at 18:15 Dictated By: Pankaj Todd M.D. Signed By:05/07/241815 DD/ 14 TD/TT: Knifer Up: Generic External Data Provider [facility] Final Result documented in this encounter Visit Diagnoses Not on filedocumented in this encounter Care Teams Tectonophysicist Relationship Specialty Start Date End Date Jasvir León MD [address] [facility] [address] [place] [address] PCP - General Internal Medicine 11/20/22 Jasvir León MD [address] [facility] [address] [place] [address] PCP - ACO Reach 11/30/22 Leora Pollard, RN Registered Nurse Family Medicine 07/10/24 documented as of this encounter
--- OUTSIDE RECORDS SUMMARY | 2024-11-29 13:02 | XMS_ITS | Encounter Summary ---
Author Organization [facility] Address [address] [facility] [place] [address] Care Team Providers Care Bath Mixer Name Role Phone Jasvir León MD Primary Care Provider [phone] Jasvir León MD Unavailable [phone] Leora Pollard RN Unavailable [phone] Encounter Details Date Type Department Care Team (Late st Contact Info) Description 05/09/2024 Abstract [facility] 112 [facility] [address] [place] [id number] Jasvir León MD 112 [facility] 110 [place] [address] Social History Tobacco Use Types Packs/Day Years [...] on filedocumented in this encounter Care Teams Bath Mixer Relationship Specialty Start Date End Date Jasvir León MD [address] [facility] [address] [place] [address] PCP - General Internal Medicine 11/20/22 Jasvir León MD [address] [facility] [address] [place] [address] PCP - ACO Reach 11/30/22 Leora Pollard, RN Registered Nurse Family Medicine 07/10/24 documented as of this encounter
--- OUTSIDE RECORDS SUMMARY | 2024-11-29 13:02 | XMS_ITS | Encounter Summary ---
Author Organization [facility] Address [address] [facility] [place] [address] Care Team Providers Care Publicity Writer Name Role Phone Jasvir León MD Primary Care Provider [phone] Jasvir León MD Unavailable [phone] Leora Pollard RN Unavailable [phone] Encounter Details Date Type Department Care Team (Late st Contact Info) Description 06/13/2024 Abstract [facility] 112 [facility] [address] [place] [id number] Jasvir León MD 112 [facility] 110 [place] [address] Social History Tobacco Use Types Packs/Day Years [...] on filedocumented in this encounter Care Teams Publicity Writer Relationship Specialty Start Date End Date Jasvir León MD [address] [facility] [address] [place] [address] PCP - General Internal Medicine 11/20/22 Jasvir León MD [address] [facility] [address] [place] [address] PCP - ACO Reach 11/30/22 Leora Pollard, RN Registered Nurse Family Medicine 07/10/24 documented as of this encounter
--- OUTSIDE RECORDS SUMMARY | 2024-11-29 13:02 | XMS_ITS | Encounter Summary ---
Author Organization [facility] Address [address] [facility] [place] [address] Care Team Providers Care Paperboard Machine Operator Name Role Phone Jasvir León MD Primary Care Provider [phone] Jasvir León MD Unavailable [phone] Leora Pollard RN Unavailable [phone] Encounter Details Date Type Department Care Team (Late st Contact Info) Description 06/04/2024 Abstract [facility] 112 [facility] 110 [place] [address] Jasvir León MD 112 [facility] 110 [place] [address] Social History Tobacco Use Types Packs/Day Years [...] on filedocumented in this encounter Care Teams Paperboard Machine Operator Relationship Specialty Start Date End Date Jasvir León MD [address] [facility] 110 [place] [address] PCP - General Internal Medicine 11/20/22 Jasvir León MD [address] [facility] [address] [place] [address] PCP - ACO Reach 11/30/22 Leora Pollard, RN Registered Nurse Family Medicine 07/10/24 documented as of this encounter
--- OUTSIDE RECORDS SUMMARY | 2024-11-29 13:02 | XMS_ITS | Clinical Summary ---
Author Organization [facility] Address [address] [facility] [place] [address] Care Team Providers Care Forestry Aide Name Role Phone Jasvir León MD Primary Care Provider [phone] Jasvir León MD Unavailable [phone] Leora Pollard RN Unavailable [phone] Allergies Active Allergy Reactions Criticality Noted Date Comments Codeine 11/21/2022 Other Reaction(s): Upset Stomach Penicillin G Rash,Other Low 11/21/2022 Penicillins Other 06/26/2014 Sacubitril-Valsartan Rash Low 11/21/2022 Medications acetaminophen (Tylenol) 325 MG tablet Take 325 mg by mouth every 6 (six) hours if needed. Active ammonium lactate (Lac-Hydrin) 12 % lotion Apply 1 application topically if needed. 09/01/19 22 Active Calcium Carb-Cholecalcife rol 600-200 MG-UNIT tablet Take by mouth 1 (one) time each day at the same time. Active clotrimazole (Mycelex) 10 MG erinn Take 10 mg by mouth every 8 (eight) hours PRN 08/03/19 22 Active amLODIPine (Norvasc) 5 MG tablet Take 5 mg by mouth in the morning. 02/10/20 23 Active lisinopril 20 MG tablet Take 20 mg by mouth in the morning. 02/10/20 23 Active carvedilol (Coreg) 12.5 MG tabletIndications :Chronic right-sided heart failure (HCC) (CMS/HCC) Take 1 tablet (12.5 mg) by mouth in the morning and 1 tablet (12.5 mg) in the evening. Take with meals. 180 tablet 2 01/03/20 24 Active escitalopram (Lexapro) 10 MG tabletIndications :Depression with anxiety Take 1 tablet (10 mg) by mouth Daily 90 tablet 2 01/03/20 24 Active gabapentin (Neurontin) 100 MG capsuleIndication s:Restless legs syndrome Take 1 capsule (100 mg) by mouth in the morning and 1 capsule (100 mg) in the evening and 1 capsule (100 mg) before bedtime. 270 capsule 3 01/16/20 24 Active omeprazole (PriLOSEC) [address] capsuleIndication s:Gastroesophagea l reflux disease, unspecified whether esophagitis present TAKE 1 CAPSULE BY MOUTH DAILY 100 capsule 3 03/05/20 24 Active insulin lispro protamine-insulin lispro (HumaLOG Mix 75-25) (75-25) 100 UNIT/ML injectionIndicati ons:Diabetes mellitus with peripheral vascular disease (CMS/HCC) Inject 10 Units under the skin in the morning and 10 Units in the evening. Inject with meals. 6 mL 11 05/28/20 24 Active buPROPion SR (Wellbutrin SR) 150 MG 12 hr tabletIndications :Depression with anxiety Take 1 tablet (150 mg) by mouth in the morning and 1 tablet (150 mg) before bedtime. 200 tablet 3 06/23/20 24 Active atorvastatin (Lipitor) 20 MG tabletIndications :Stage 3a chronic kidney disease (HCC) (CMS/HCC) TAKE 1 TABLET BY MOUTH AT BEDTIME 130 tablet 06/25/20 24 Active digoxin (Lanoxin) 125 MCG tabletIndications :Acute on chronic systolic congestive heart failure (CMS/HCC) Take 1 tablet (125 mcg) by mouth every other day 06/26/20 24 Active spironolactone (Aldactone) 25 MG tabletIndications :Chronic right-sided heart failure (HCC) (CMS/HCC) Take 0.5 tablets (12.5 mg) by mouth in the morning. 90 tablet 2 06/26/20 24 025 Active Continuous Glucose Employment Law Specialist (FreeStyle Marguerite 2 [place]) device 1 Device Act patrice Continuous Glucose Sensor (FreeStyle Marguerite 2 Plus Sensor) misc 1 Application continuously Active tiZANidine (Zanaflex) 4 MG tabletIndications :Lumbar paraspinal muscle spasm Take 1 tablet (4 mg) by mouth every 8 (eight) hours if needed for muscle spasms 30 tablet 3 07/31/19 25 Active dapagliflozin (Farxiga) 10 MG Take 10 mg by mouth in the morning. 07/25/19 25 026 Active torsemide (Demadex) 20 MG tabletIndications :Acute combined systolic and diastolic heart failure (CMS/HCC) Take 3 tablets (60 mg) by mouth Daily 08/11/19 25 Active hyoscyamine (Anaspaz) 0.[address] 0.25 mg under the tongue every 6 (six) hours if needed 08/16/19 25 Active ondansetron ODT (Zofran-ODT) 4 MG disintegrating tablet Take 4 mg by mouth every 6 (six) hours if needed for nausea or vomiting 08/16/19 25 Active oxygen (O2) gas Inhale 2 L/min continuously via nasal canula Active aspirin 81 MG EC tablet Take 81 mg by mouth Daily Active insulin pen needle 31G X 8 mm miscIndications:T ype 2 diabetes mellitus with stage 3b chronic kidney disease, with long-term current use of insulin (HCC) (CMS/HCC) Inject 1 each under the skin in the morning and 1 each before bedtime. 100 each 3 10/19/19 25 Active amitriptyline (Elavil) 25 MG tabletIndications :Primary insomnia,RLS (restless legs syndrome) Take 1 tablet (25 mg) by mouth at bedtime 30 tablet 11 10/28/19 25 026 Active ALPRAZolam (Xanax) 0.25 MG tabletIndications :Anxiety Take 1-2 tablets (0.25-0.5 mg) by mouth as needed at bedtime for anxiety 60 tablet 11/04/19 25 025 Active Budeson-Glycopyrr ol-Formoterol (Breztri Aerosphere) 160-9-4.8 MCG/ACT aerosol Inhale 2 puffs in the morning and 2 puffs before bedtime. Active colchicine 0.6 MG tabletIndications :Gout, unspecified cause, unspecified chronicity, unspecified site Take 1 tablet (0.6 mg) by mouth Daily 30 tablet 1 11/02/19 24 025 Additional Information Patient taking differently:0.6 mg Oral Daily,PRN, Reported on 10/27/2024 ALPRAZolam (Xanax) 0.25 MG tabletIndications :Anxiety Take 1-2 tablets (0.25-0.5 mg) by mouth as needed at bedtime for anxiety 60 tablet 09/27/19 25 025 Discontinu ed(Reorder ) Active Problems Problem Noted Date Diagnosed Date Primary insomnia 10/27/2024 Mild cognitive impairment 10/27/2024 Disorder of intervertebral disc of lumbar spine 08/20/2024 Oxygen dependent 08/20/2024 Mass of left lung 08/20/2024 Chronic hypoxic respiratory failure 08/20/2024 Neurogenic claudication 06/02/2024 Fracture of rib of left side 05/13/2024 Chronic right-sided heart failure (HCC) 12/26/19 24 Bilateral posterior capsular opacification 07/30 Dry eyes 07/30/2023 Lumbar radiculitis 05/29/2023 Anxiety 03/15/2023 Compression fracture of T12 vertebra (HCC) 03/15 Abnormal laboratory test 11/21/2022 Acquired hypothyroidism 11/21/2022 Acute combined systolic and diastolic heart fail ure 11/21/2022 Acute on chronic systolic congestive heart failu re 11/21/2022 Allergic rhinitis due to pollen 11/21/2022 Aortic stenosis 11/21/2022 Aortic valve stenosis with insufficiency 023 Arthritis of ankle, right 11/21/2022 Contracture, right ankle 11/21/2022 Asthma 11/21/2022 Atrial fibrillation with rapid ventricular respo nse 11/21/2022 Chronic a-fib 11/21/2022 Permanent atrial fibrillation 11/21/2022 Atrial flutter 11/21/2022 Benign essential hypertension 11/21/2022 Chronic combined systolic an d diastolic congestive heart failure 11/21/2022 Chronic obstructive pulmonary disease 11/21/2022 Depression with anxiety 11/21/2022 Diabetes mellitus with peripheral vascular disea se 11/21/2022 Type 2 diabetes mellitus wit h stage 3b chronic kidney disease, with long-term current use of insulin (HCC) 11/21/2022 Diabetic mononeuropathy 11/21/2022 Diastolic dysfunction 11/21/2022 Difficulty walking 11/21/2022 Diverticulosis of colon 11/21/2022 Drug-induced constipation 11/21/2022 Esophageal reflux 11/21/2022 Generalized osteoarthritis 11/21/2022 Hyperlipidemia 11/21/2022 Hyperthyroidism 11/21/2022 Inflammation of foot joint 11/21/2022 Spinal stenosis at L4-L5 level 11/21/2022 Mitral valve disease, rheumatic 11/21/2022 Muscle weakness (generalized) 11/21/2022 Nontoxic single thyroid nodule 11/21/2022 Obesity (BMI 30-39.9) 11/21/2022 ZIA on CPAP 11/21/2022 Osteopenia of multiple sites 11/21/2022 Other primary ovarian failure 11/21/2022 Peripheral vascular disease 11/21/2022 Primary localized osteoarthrosis of ankle and fo ot 11/21/2022 Primary osteoarthritis of right foot 11/21/2022 Primary osteoarthritis of right knee 11/21/2022 RLS (restless legs syndrome) 11/21/2022 S/P aortic valve replacement with bioprosthetic valve 11/21/2022 Stage 3b chronic kidney disease (HCC) 11/21/2022 Stenosis colon 11/21/2022 Subclinical iodine-deficiency hypothyroidism Supraventricular premature beats 11/21/2022 Unsteadiness on feet 11/21/2022 Urinary incontinence 11/21/2022 Pulmonary hypertension 10/30/2022 Pneumonia due to COVID-19 virus 06/07/2022 Overview (04/10/2023): 04/2022 Last Assessment & Plan: Recent hospitalization for PNA s/p Covid with noted A fib with RVR Recovering quite well. F/u with PCP Abnormal gait 08/15/2021 Peripheral angiopathy due to type 2 diabetes teo litus 05/12/2020 Drug level above therapeutic range 12/20/2017 group home current use of anticoagulant therapy 0 12/20/2017 History of iron deficiency 04/04/2017 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 Dyspnea 05/23/2016 Aortic valve disorder 04/20/2016 Overview (04/10/2023): aortic valve replacement with a 23 mm trifecta tissue valve: 2016 Last Assessment & Plan: No concerning symptoms currently Will continue to monitor Recent FARA Stephanie showed high doppler flows Anemia 12/09/2012 Overview (04/10/2023): HB 8.5 G/DL Mitral and aortic incompetence 11/23/2011 Overview (04/10/2023): MODERATE /AR, MOD MR, TR Resolved Problems Problem Noted Date Diagnosed Date Resolved Date Age-related osteoporosis wit h current pathological fracture of vertebra, with routine healing, subsequent encounter 08/19/2024 Pathological fracture of gracia tebra due to osteoporosis 05/09/2023 08/19/2024 Chronic kidney disease due t o diabetes mellitus 11/21/2022 12/26/2023 Stage 3a chronic kidney disease (HCC) 11/21/2022 08/02/2023 Encounters Date Type Department Care Team Description 11/27/2024 Abstract [facility] [address] [address] Jasvir León MD 11/25/2024 Patient Outreach [facility] [address] [facility] [address] Monica Ross, DOUGHNUT ICER 11/25/2024 Abstract [facility] [address] [facility] [address] [place] [address] Jasvir León MD 11/21/2024 Abstract [facility] [address] [facility] [address] [place] [address] Jasvir León MD 11/21/2024 Abstract [facility] [address] [facility] [address] [place] [address] Jasvir León MD 11/21/2024 Abstract [facility] [address] [facility] [address] [place] [address] Jasvir León MD 11/18/2024 Patient Outreach [facility] [address] [place] [address] Monica Ross LPN 11/11/2024 Clinisync Result Encounter [facility] External Department Unsolicited Provider, Generic External Data 11/11/2024 Abstract [facility] [address] [place] [address] [place] [address] Jasvir León MD 11/11/2024 Abstract [facility] [address] [place] [address] [place] [address] Jasvir León MD 11/07/2024 Telephone [facility] [address] [place] [address] [place] [address] Jasvir León MD 11/06/2024 Patient Outreach [facility] [address] [place] [address] Leora Pollard RN 11/06/2024 Abstract [facility] [address] [place] [address] [place] [address] Jasvir León MD 11/06/2024 Abstract [facility] [address] [place] [address] [place] [address] Jasvir León MD 11/06/2024 Abstract [facility] [address] [place] [address] [place] [address] Jasvir León MD 11/05/2024 Abstract [facility] [address] [place] [address] [place] [address] Jasvir León MD 11/04/2024 Telephone [facility] [address] [place] [address] [place] [address] Jasvir León MD FYI 11/03/2024 Refill [facility] [address] [place] [address] [place] [address] Bev Mejia LPN Anxiety 10/30/2024 Abstract [facility] [address] [place] [address] [place] [address] Jasvir León MD 10/27/2024 10:30 AM EDT Office Visit [facility] [address] [facility] [address] [place] [address] Jasvir León MD Primary insomnia (Primary Dx); RLS (restless legs syndrome); Depression with anxiety; Chronic right-sided heart failure (HCC) ([facility]); History of falling; Mild cognitive impairment 10/27/2024 Travel 10/27/2024 Abstract [facility] [address] [facility] [address] [place] [address] Jasvir León MD 10/22/2024 Telephone [facility] [address] [facility] [address] [place] [address] Jasvir León MD [facility] 10/21/2024 Abstract [facility] [address] [facility] [address] [place] [address] Jasvir León MD 10/18/2024 Refill [facility] [address] [facility] [address] [place] [address] Bev Mejia LPN Type 2 diabetes mellitus with stage 3b chronic kidney disease, with long-term current use of insulin (HCC) ([facility]) 10/09/2024 Abstract [facility] [address] [facility] [address] [place] [address] Jasvir León MD 10/08/2024 Clinisync Result Encounter [facility] External Department Unsolicited Provider, Generic External Data 10/08/2024 Clinisync Result Encounter [facility] External Department Unsolicited Provider, Generic External Data 10/08/2024 Clinisync Result Encounter [facility] External Department Unsolicited Provider, Generic External Data 10/08/2024 Abstract [facility] [address] [facility] [address] [place] [address] Jasvir León MD 10/07/2024 Patient Outreach [facility] [place] [address] [place] [address] Leora Pollard RN 10/01/2024 Abstract [facility] [address] [facility] [address] [place] [address] Jasvir León MD 09/26/2024 Refill [facility] [address] [facility] [address] [place] [address] Bev Mejia, DOUGHNUT ICER Anxiety 09/24/2024 Abstract [facility] [address] [facility] [address] [place] [address] Jasvir León MD 09/15/2024 Abstract [facility] [address] [facility] [address] [place] [address] Jasvir León MD 09/15/2024 Abstract [facility] [address] [facility] [address] [place] [address] Jasvir León MD 09/15/2024 Patient Outreach [facility] [address] [place] [address] Leora Pollard RN 09/11/2024 Clinisync Result Encounter [facility] External Department Unsolicited Provider, Generic External Data 09/09/2024 Clinisync Result Encounter [facility] External Department Unsolicited Provider, Generic External Data 09/08/2024 Patient Outreach [facility] [address] [place] [address] Leora Pollard, K[place] 09/08/2024 Patient Outreach [facility] [address] [place] [address] Leora Pollard, KING 09/03/2024 Abstract [facility] [address] [facility] [address] [place] [address] Jasvir León MD 09/02/2024 Abstract [facility] [address] [facility] [address] [place] [address] Jasvir León MD 09/01/2024 Patient Outreach [facility] [address] [place] [address] Leora Pollard, RN from Last 3 Months Immunizations Immunization Administration Dates Next Due Influenza, High Dose Seasona l, Preservative Free 04/29/2021,04/22/2018,03/29/2017 Influenza, Seasonal, Quadriv alent, Adjuvanted 05/13/2023,04/29/2021 Influenza, injectable, quadrivalent 03/30/2016 Influenza, injectable, quadr ivalent, preservative free 03/22/2020,03/30/2016 Influenza, seasonal, intrade rmal, preservative free 03/25/2015,04/02/2014 Influenza, trivalent, adjuvanted 04/12/2024,03/09 Pfizer Coleman Cap SARS-CoV-2 Vaccination 3 Pneumococcal Conjugate PCV 13 08/26/2016 Pneumococcal Polysaccharide PPSV23 04/12/2024,,04/26/2010 SARS-CoV-2, Unspecified 05/16/2021,08/29/2020, Td (adult), 5 Lf tetanus tox oid, preservative free, adsorbed 03/31/2014,09/01/2013 Zoster, Recombinant 09/11/2023, 3,06/12/2019,03/20 Zoster, live 03/25/2012 Family History Medical History Relation Name Comments Diabetes Father Heart disease Father Heart disease Mother Heart failure Mother Relation Name Status Comments Father Mother Social History Tobacco Use Types Packs/Day Years Used Date Smoking Tobacco: Former Cigarettes Smokeless Tobacco: Never Tobacco Cessation:Counseling Given: Not Answered [...] 07/10/2024 How often do you attend chur ch or episcopal services? 1 to 4 times per year 07/10/2024 Do you belong to any clubs o r organizations such as rastafari groups, unions, fraternal or athletic groups, or [...] Recorded Patient Health Questionnaire-2 Score 0 10/27/2024 [facility] - Occupational Stress [...] any time in the past 12 m [facility], were you homeless or living in a assisted (including now)? No 07/10/2024 Comments Unknown Sex and Gender Information Value Date Recorded Sex Assigned at Not on file Legal Sex Female 7:05 PM EDT Gender Identity Not on file Sexual Orientation Not on file Last Filed Vital Signs Vital Sign Reading Time Taken Comments Blood Pressure 134/74 10/27/2024 10:27 AM EDT Pulse 69 10/27/2024 10:27 AM EDT Temperature 36.7 C (98 F) 08/20/2024 2:12 PM EST Respiratory Rate 16 08/20/2024 2:12 PM EST Oxygen Saturation 97% 10/27/2024 10:27 AM EDT Inhaled Oxygen Concentration - - Weight 60.8 kg (134 lb) 10/27/2024 10:27 AM EDT Height 154.9 cm (5' 1 ) 10/27/2024 10:27 AM EDT Body Mass Index 25.32 10/27/2024 10:27 AM EDT Plan of Treatment Health Maintenance Due Date Last Done Comments Diabetes: Urine Protein Screening 11/14/2023 11/13/2022, 04/14/2020, 11/06/2018, Additional history exists Diabetes: Hemoglobin A1C 11/17/2024 025, 12/26/2023, 08/02/2023, Additional history exists Diabetes: Retinopathy Screening 07/30/2025 07/30/2023, 07/30/2023, 07/30/2023, Additional history exists Influenza Vaccine Completed 04/12/2024, , 04/29/2021, Additional history exists Pneumococcal Vaccine: 65+ Years Completed 04/12/2024, 08/26/2016, 03/25/2015, Additional history exists Procedures Procedure Name Priority Date/Time Associated Diagnosis Comments BLOOD CULTURE 2 Routine 11/11/2024 12:30 PM EDT BLOOD CULTURE 1 Routine 11/11/2024 12:28 PM EDT RT PULMONARY FUNCTION TEST 10/08/2024 1:23 PM EDT ALL HEMOGLOBIN Routine 10/08/2024 1:13 PM EDT ITP 10/08/2024 9:40 AM EDT ALL BASIC METABOLIC PANEL Routine 09/11/2024 11:58 AM EST ITP 09/09/2024 1:01 PM EST POCT GLYCATED HEMOGLOBIN, TOTAL Routine 08/20/2024 2:24 PM EST Diabetes mellitus with peripheral vascular disease (CMS/HCC) MICROALBUMIN / CREATININE URINE RATIO Routine 04/14/2020 COLOR FUNDUS PHOTOGRAPHY - OU - BOTH EYES Routine 11/28/2018 12:00 PM EDT from Last 3 Months or Most Recently Relevant to Health Maintenance Results * BLOOD CULTURE 2 (11/11/2024 12:30 PM EDT) BLOOD CULTURE 2 Blood Culture 2 NG5D NO GROWTH AT 5 DAYS.^NO GROWTH AT 5 DAYS. [facility] 11/11/2024 12:3 0 PM EDT 11/11/2024 12:33 PM EDT Narrative [facility] - 11/16/2024 3:23 PM EDT PEDS ONLY us Generic External Data Provider LAB BLOOD ORDERAB LES Final Result Performing Organization Address City/[facility]/ZIP Co de Phone Number [facility] * BLOOD CULTURE 1 (11/11/2024 12:28 PM EDT) BLOOD CULTURE 1 Blood Culture 1 NG5D NO GROWTH AT 5 DAYS.^NO GROWTH AT 5 DAYS. [facility] 11/11/2024 12:2 8 PM EDT 11/11/2024 12:33 PM EDT Narrative [facility] - 11/16/2024 3:23 PM EDT PEDS ONLY us Generic External Data Provider LAB BLOOD ORDERAB LES Final Result Performing Organization Address City/[facility] Co de Phone Number [facility] * RT PULMONARY FUNCTION TEST (10/08/2024 1:23 PM EDT) Anatomical Region Laterality Modality Other 10/08/2024 1:23 PM EDT Narrative 10/09/2024 4:33 [place] [address] Respiratory Report Signed Patient: KATHY VILLEGAS MR#: [id number] : 1940 Acct:[id number] Age/Sex: 84 / F ADM Date: 10/08/24 Loc: CARD Attending Dr: Roland Tan D.O. Ordering Physician: Roland Tan D.O. Date of Service: 10/08/24 Procedure(s): RT pulmonary function test Accession Number(s): [id number] cc: [facility] Test Date: 2024-10-08 Pat Name: KATHY VILLEGAS Department: Room: - Gender: Female Customer Services Manager: Jose De Jesus Tran RRT : 1940 Requested By: Roland Tan Order Number: [id number] Reading MD: Roland Tan Interpretive Statements Pulmonary function testing was completed according to ATS criteria. Findings were considered accurate and reproducible, with exception of DLCO which did not meet ATS standards. Both pre- and post-bronchodilator values utilized for spirometry. Spirometry (based on pre-bronchodilator values): -FEV1/FVC: Reduced @ 68% -FEV1: Low normal @ 82% -FVC: Normal @ 87% -There is no significant bronchodilator response. Lung volumes by plethysmography: -RV: Reduced @ 79% -TLC: Mildly reduced @ 78% Diffusion capacity: -DLCO: Very severe reduction @ 29% when corrected for Hb 10.6g/dL Impressions: -Spirometry suggests mild-moderate obstruction without a bronchodilator response. There is a concomitant restrictive disorder with a mildly decreased TLC. Very severe diffusion impairment out of proportion with the other studies - DLCO may be artificially decreased d/t not meeting ATS standards. Overall study may represent COPD/emphysema +/- concomitant restriction-causing disorder such as ILD or cardiovascular pulmonary disease. Clinical correlation required. Electronically Signed On 10-09-2024 16:33:43 EDT by Roland Tan Dictated By: Roland Tan D.O. Signed By: 10/09/24 1633 DD/ 1323 TD/TT: Technical Administrator: Procedure Note Radiology, Radiologist, - 10/09/2024 [place] [address] Respiratory Report Signed Patient: KATHY VILLEGAS MMR#: [id number] : 9Acct:[id number] Age/Sex: 84 / FADM Date: 10/08/24 Loc: CARD Attending Dr: Roland Tan D.O. Ordering Physician: Roland Tan D.O. Date of Service: 10/08/24 Procedure(s): RT pulmonary function test Accession Number(s): [id number] cc: [facility] Test Date: 2024-10-08 Pat Name: KATHY VILLEGAS Department: Room: - Gender: Female Customer Services Manager: Jose De Jesus Tran RRT : 1940 Requested By: Roland Tan Order Number: [id number] Reading MD: Roland Tan Interpretive Statements Pulmonary function testing was completed according to ATS criteria.Findings were considered accurate and reproducible, with exception of DLCO whichdid not meet ATS standards. Both pre- and post-bronchodilator values utilized for spirometry. Spirometry (based on pre-bronchodilator values): -FEV1/FVC: Reduced @ 68% -FEV1: Low normal @ 82% -FVC: Normal @ 87% -There is no significant bronchodilator response. Lung volumes by plethysmography: -RV: Reduced @ 79% -TLC: Mildly reduced @ 78% Diffusion capacity: -DLCO: Very severe reduction @ 29% when corrected for Hb 10.6g/dL Impressions: -Spirometry suggests mild-moderate obstruction without a bronchodilator response. There is a concomitant restrictive disorder with a mildly decreased TLC. Very severe diffusion impairment out of proportion withthe other studies - DLCO may be artificially decreased d/t not meeting ATS standards. Overall study may represent COPD/emphysema +/- concomitant restriction-causing disorder such as ILD or cardiovascular pulmonarydisease. Clinical correlation required. Electronically Signed On 10-09-2024 16:33:43 EDT by Roland Tan Dictated By: Roland Tan D.O. Signed By:10/09/24 1633 DD/ 1323 TD/TT: Technical Administrator: us Generic External Data Provider [facility] Final Result * (ABNORMAL) ALL HEMOGLOBIN (10/08/2024 1:13 PM EDT) [facility] HGB 10.6(L) 12.0 - 16.0 g/dL [facility] 10/08/2024 1:13 PM EDT 10/08/2024 1:15 PM EDT Narrative [facility] - 10/08/2024 1:18 PM EDT Generic External Data Provider [facility] F inal Result [facility]EV[facility] * ITP (10/08/2024 9:40 AM EDT) Only the most recent of2 resultswithin the time period is included. Anatomical Region Laterality Modality Other 10/08/2024 9:40 AM EDT Narrative 10/19/2024 7:59 [place] [address] Cardiac Rehab Report Signed Patient: KATHY VILLEGAS MR#: [id number] : 1940 Acct:[id number] Age/Sex: 84 / F ADM Date: 08/12/24 Loc: CR Attending Dr: JOSEFINA CHAO Ordering Physician: JOSEFINA CHAO Date of Service: 10/08/24 Procedure(s): ITP Accession Number(s): [id number] cc: [facility] Test Date: 2024-10-08 Pat Name: KATHY VILLEGAS Department: Room: - Gender: Female Customer Services Manager: : 1940 Requested By: JOSEFINA CHAO M.D. Order Number: [id number] Timothy MD: HAIM GARCIA Interpretive Statements Session Date: Electronically Signed On 10-19-2024 19:58:49 EDT by HAIM GARCIA Dictated By: Haim Garcia D.O. Signed By: 10/19/24195810/19/241958 DD/ 9 TD/TT: Technical Administrator: Procedure Note Radiology, Radiologist, - 10/19/2024 [place] [address] Cardiac Rehab Report Signed Patient: KATHY VILLEGAS MMR#: [id number] : 1940cct:[id number] Age/Sex: 84 / FADM Date: 08/12/24 Loc: CR Attending Dr: JOSEFINA CHAO Ordering Physician: JOSEFINA CHOA Date of Service: 10/08/24 Procedure(s): ITP Accession Number(s): [id number] cc: [facility] Test Date: 2024-10-08 Pat Name: KATHY VILLEGAS Department: Room: - Gender: Female Customer Services Manager: : 1940 Requested By: JOSEFINA CHAO M.D. Order Number: [id number] Timothy MD: HAIM GARCIA Interpretive Statements Session Date: Electronically Signed On 10-19-2024 19:58:49 EDT by HAIM GARCIA Dictated By: Haim Garcia D.O. Signed By:10/19/24195810/19/241958 DD/ 9 TD/TT: Technical Administrator: Generic External Data Provider [facility] Final Result * (ABNORMAL) ALL BASIC METABOLIC PANEL (09/11/2024 11:58 AM EST) SODIUM 139 136 - 145 mmol/L [facility] POTASSIUM 4.0 3.5 - 5.1 mmol/L [facility] CHLORIDE 97(L) 98 - 107 mmol/L [facility] CARBON DIOXIDE 36.5(H) 21.0 - 32.0 mmol/L [facility] ANION GAP 9.5 [facility] GLUCOSE 107(H) 74 - 106 mg/dL [facility] BLOOD UREA NITROGEN 38.0(H) 7.0 - 18.0 mg/dL [facility] CREATININE 1.60(H) 0.55 - 1.02 mg/dL [facility] EGFR-AF HAITIAN 37(L) >=60 mL/min/1.7 3m 2 [facility] EGFR-NON AF HAITIAN 31(L) >=60 mL/min/1.7 3m 2 [facility] BUN CREATININE RATIO 23.8 [facility] CALCIUM 9.3 8.5 - 10.1 mg/dL [facility] 09/11/2024 11:5 8 AM EST 09/11/2024 11:59 AM EST Narrative [facility] - 09/11/2024 12:20 PM EST Generic External Data Provider [facility] * (ABNORMAL) POCT Glycated hemoglobin, total (08/20/2024 2:24 PM EST) Pathologist [facility] Hemoglobin A1C 6.8 Blood 08/20/2024 2:24 PM EST Rosina GREER POINT OF CARE TEST ENTER/EDIT ORDERABLES Final Result * (ABNORMAL) Microalbumin / creatinine urine ratio (04/14/2020) UCREA 226(H) 28 - 217 [facility] MALB 1.7 [facility] Comment:mALB reference range not established. MICROALB/CREAT RATIO 7.5 [facility] 04/14/2020 us Rosina Suarez PA LAB URINE ORDERABLES Final Res ult [facility] * Color Fundus Photography - OU - Both Eyes (11/28/2018 12:00 PM EDT) Anatomical Region Laterality Modality Head Fundus Photograp hy 11/28/2018 12:0 0 PM EDT Narrative 11/28/2018 12:00 PM EDT PERFORMED AT [facility] LOCATION:[id number] [facility] Procedure Note CONVERSION, GENERIC - 11/22/2022 PERFORMED AT [facility] LOCATION:[id number] [facility] Jasvir León MD OPHTH PHOTOGRAPHY Final Result from Last 3 Months or Most Recently Relevant to Health Maintenance Insurance MEDICARE [facility] Care Teams Forestry Aide Relationship Specialty Start Date End Date Jasvir León MD [address] [facility] 110 [place] [address] PCP - General Internal Medicine 11/20/22 Jasvir León MD [address] [facility] 110 [place] [address] PCP - ACO Reach 11/30/22 Leora Pollard, [place] Registered Nurse Family Medicine 07/10/24
--- OUTSIDE RECORDS SUMMARY | 2024-11-29 13:02 | XMS_ITS | Encounter Summary ---
Author Organization [facility] Address [address] [facility] [place] [address] Care Team Providers Care Solid Waste Engineer Name Role Phone Jasvir León MD Primary Care Provider [phone] Jasvir León MD Unavailable [phone] Leora Pollard RN Unavailable [phone] Encounter Details Date Type Department Care Team (Late st Contact Info) Description 06/25/2024 [facility] 112 [facility] 110 [place] [address] Jasvir León MD 112 [facility] 110 [place] [address] Social History Tobacco Use Types Packs/Day Years [...] on filedocumented in this encounter Care Teams Solid Waste Engineer Relationship Specialty Start Date End Date Jasvir León MD [address] [facility] 110 [place] [address] PCP - General Internal Medicine 11/20/22 Jasvir León MD [address] [facility] 110 [place] [address] PCP - ACO Reach 11/30/22 Leora Pollard, RN Registered Nurse Family Medicine 07/10/24 documented as of this encounter
--- OUTSIDE RECORDS SUMMARY | 2024-11-29 13:03 | XMS_ITS | Encounter Summary ---
Author Organization [facility] Address [address] [facility] [place] [address] Care Team Providers Care Retail Selling Floor Leader Name Role Phone Jasvir León MD Primary Care Provider [phone] Jasvir León MD Unavailable [phone] Leora Pollard RN Unavailable [phone] Encounter Details Date Type Department Care Team (Late st Contact Info) Description 08/07/2023 Abstract [facility] 112 [facility] 110 [place] [address] Jasvir León MD 112 [facility] 110 [place] [address] Social History Tobacco Use Types Packs/Day Years [...] on filedocumented in this encounter Care Teams Retail Selling Floor Leader Relationship Specialty Start Date End Date Jasvir León MD [address] [facility] 110 [place] [address] PCP - General Internal Medicine 11/20/22 Jasvir León MD [address] [facility] [address] [place] [address] PCP - ACO Reach 11/30/22 Leora Pollard, RN Registered Nurse Family Medicine 07/10/24 documented as of this encounter
--- OUTSIDE RECORDS SUMMARY | 2024-11-29 13:03 | XMS_ITS | Encounter Summary ---
Author Organization [facility] Address [address] [facility] [place] [address] Care Team Providers Care Mobile Pet Groomer Name Role Phone Jasvir León MD Primary Care Provider [phone] Jasvir León MD Unavailable [phone] Leora Pollard RN Unavailable Encounter Details Date Type Department Care Team (Late st Contact Info) Description 11/19/2023 Abstract [facility] 112 [facility] 110 [place] [address] Jasvir León MD 112 [facility] 110 [place] [address] Social History Tobacco Use Types Packs/Day Years [...] on filedocumented in this encounter Care Teams Mobile Pet Groomer Relationship Specialty Start Date End Date Jasvir León MD [address] [facility] 110 [place] [address] PCP - General Internal Medicine 11/20/22 Jasvir León MD [address] [facility] [address] [place] [address] PCP - ACO Reach 11/30/22 Leora Pollard, RN Registered Nurse Family Medicine 07/10/24 documented as of this encounter
--- OUTSIDE RECORDS SUMMARY | 2024-11-29 13:03 | XMS_ITS | Encounter Summary ---
Author Organization [facility] Address [address] [facility] [place] [address] Care Team Providers Care Health And Wellness Coordinator Name Role Phone Jasvir León MD Primary Care Provider [phone] Jasvir León MD Unavailable [phone] Leora Pollard RN Unavailable [phone] Encounter Details Date Type Department Care Team (Late st Contact Info) Description 09/24/2024 Abstract [facility] 112 [facility] 110 [place] [address] Jasvir León MD 112 [facility] 110 [place] [address] Social History Tobacco Use Types Packs/Day Years [...] How often do you attend chur or mosque services? 1 to 4 times per year 07/10/2024 Do you belong to any clubs o r organizations such as adventist groups, unions, fraternal or athletic groups, or [...] Recorded Patient Health Questionnaire-2 Score 0 04/11/2023 [facility] [place] of Occupat ional Health - Occupational Stress [...] any time in the past 12 m [facility], were you homeless or living in a long term (including now)? No 07/10/2024 Comments Unknown Sex and Gender Information Value Date Recorded Sex Assigned at Not on file Legal Sex Female 7:05 PM EDT Gender Identity Not on file Sexual Orientation Not on file documented as of this encounter Plan of Treatment Not on file documented as of this encounter Visit Diagnoses Not on filedocumented in this encounter Care Teams Health And Wellness Coordinator Relationship Specialty Start Date End Date Jasvir León MD [address] [facility] 110 [place] [address] PCP - General Internal Medicine 11/20/22 Jasvir León MD [address] [facility] [address] [place] [address] PCP - ACO Reach 11/30/22 Leora Pollard, [place] Registered Nurse Family Medicine 07/10/24 documented as of this encounter
--- OUTSIDE RECORDS SUMMARY | 2024-11-29 13:03 | XMS_ITS | Encounter Summary ---
Author Organization [facility] Address [address] [facility] [place] [address] Care Team Providers Care Client Executive Name Role Phone Jasvir León MD Primary Care Provider [phone] Jasvir León MD Unavailable [phone] Leora Pollard RN Unavailable [phone] Encounter Details Date Type Department Care Team (Late st Contact Info) Description 04/25/2024 Abstract [facility] 112 [facility] 110 [place] [address] Jasvir León MD 112 [facility] 110 [place] [address] Social History Tobacco Use Types Packs/Day Years [...] on filedocumented in this encounter Care Teams Client Executive Relationship Specialty Start Date End Date Jasvir León MD [address] [facility] 110 [place] [address] PCP - General Internal Medicine 11/20/22 Jasvir León MD [address] [facility] [address] [place] [address] PCP - ACO Reach 11/30/22 Leora Pollard, RN Registered Nurse Family Medicine 07/10/24 documented as of this encounter
--- OUTSIDE RECORDS SUMMARY | 2024-11-29 13:03 | XMS_ITS | Encounter Summary ---
Author Organization [facility] Address [address] [facility] [place] [address] Care Team Providers Care Export Freight Manager Name Role Phone Jasvir León MD Primary Care Provider [phone] Jasvir León MD Unavailable [phone] Leora Pollard RN Unavailable [phone] Encounter Details Date Type Department Care Team (Late st Contact Info) Description 11/11/2024 Abstract [facility] 112 [facility] 110 [place] [address] Jasvir León MD 112 [facility] 110 [place] [address] Social History Tobacco Use Types Packs/Day Years [...] How often do you attend chur or religion services? 1 to 4 times per year 07/10/2024 Do you belong to any clubs o r organizations such as latter day groups, unions, fraternal or athletic groups, or [...] Recorded Patient Health Questionnaire-2 Score 0 10/27/2024 [facility] [place] of Occupat ional Health - Occupational Stress [...] any time in the past 12 m [facility], were you homeless or living in a detention (including now)? No 07/10/2024 Comments Unknown Sex and Gender Information Value Date Recorded Sex Assigned at Not on file Legal Sex Female 7:05 PM EDT Gender Identity Not on file Sexual Orientation Not on file documented as of this encounter Plan of Treatment Not on file documented as of this encounter Visit Diagnoses Not on filedocumented in this encounter Care Teams Export Freight Manager Relationship Specialty Start Date End Date Jasvir León MD [address] [facility] 110 [place] [address] PCP - General Internal Medicine 11/20/22 Jasvir León MD [address] [facility] [address] [place] [address] PCP - ACO Reach 11/30/22 Leora Pollard, [place] Registered Nurse Family Medicine 07/10/24 documented as of this encounter
--- OUTSIDE RECORDS SUMMARY | 2024-11-29 13:03 | XMS_ITS | Encounter Summary ---
Author Organization [facility] Address [address] [facility] [place] [address] Care Team Providers Care Gas Station Manager Name Role Phone Jasvir León MD Primary Care Provider [phone] Jasvir León MD Unavailable [phone] Leora Pollard RN Unavailable [phone] Encounter Details Date Type Department Care Team (Late st Contact Info) Description 09/12/2023 Abstract [facility] 112 [facility] 110 [place] [address] Jasvir León MD 112 [facility] 110 [place] [address] Social History Tobacco Use Types Packs/Day Years [...] on filedocumented in this encounter Care Teams Gas Station Manager Relationship Specialty Start Date End Date Jasvir León MD [address] [facility] 110 [place] [address] PCP - General Internal Medicine 11/20/22 Jasvir León MD [address] [facility] [address] [place] [address] PCP - ACO Reach 11/30/22 Leora Pollard, RN Registered Nurse Family Medicine 07/10/24 documented as of this encounter
--- OUTSIDE RECORDS SUMMARY | 2024-11-29 13:03 | XMS_ITS | Encounter Summary ---
Author Organization [facility] Address [address] [facility] [place] [address] Care Team Providers Care Customs Brokerage Agent Name Role Phone Jasvir León MD Primary Care Provider [phone] Jasvir León MD Unavailable [phone] Leora Pollard RN Unavailable Encounter Details Date Type Department Care Team (Late st Contact Info) Description 07/23/2023 Abstract [facility] 112 [facility] 110 [place] [address] Jasvir León MD 112 [facility] 110 [place] [address] Social History Tobacco Use Types Packs/Day Years [...] on filedocumented in this encounter Care Teams Customs Brokerage Agent Relationship Specialty Start Date End Date Jasvir León MD [address] [facility] 110 [place] [address] PCP - General Internal Medicine 11/20/22 Jasvir León MD [address] [facility] 110 [place] [address] PCP - ACO Reach 11/30/22 Leora Pollard, RN Registered Nurse Family Medicine 07/10/24 documented as of this encounter
--- OUTSIDE RECORDS SUMMARY | 2024-11-29 13:03 | XMS_ITS | Clinical Summary ---
Author Organization [facility] Address [address] [place] [address] Phone Care Team Providers Care Carbon Grinder Name Role Phone Unavailable Primary Care Provider Unavailabl e Social History Tobacco Use Types Packs/Day Years Used Date Smoking Tobacco: Never Assessed Comments Unknown Sex and Gender Information Value Date Recorded Sex Assigned at Not on file Legal Sex Female 8:23 AM EDT Gender Identity Not on file Sexual Orientation Not on file Plan of Treatment Health Maintenance Due Date Last Done Comments Bone Density Scan 1940 Lipid Panel 1940 Medicare Annual Wellness Vis it (AWV) 1940 Pneumococcal Vaccine (1 of 2 - PCV) 1958 DTaP/Tdap/Td Vaccines (1 - Tdap) 1961 Zoster Vaccines (1 of 2) 1989 RSV High Risk: (Elderly (60+ ) or Population) (1 - 1-dose 75+ series) 2014 COVID-19 Vaccine ( - 2023-2 5 season) 2024 Influenza Vaccine (Season Ended) 2025 HIB Vaccines Aged Out No longer eligi ble based on patient's age to complete this topic HPV Vaccines Aged Out No longer eligi ble based on patient's age to complete this topic Hepatitis A Vaccines Aged Out No long er eligible based on patient's age to complete this topic Hepatitis B Vaccines Aged Out No long er eligible based on patient's age to complete this topic IPV Vaccines Aged Out No longer eligi ble based on patient's age to complete this topic Meningococcal Vaccine Aged Out No yesica cm eligible based on patient's age to complete this topic Rotavirus Vaccines Aged Out No longer eligible based on patient's age to complete this topic Insurance MEDICARE PART A AND B MEDICARE PART A AND B
--- OUTSIDE RECORDS SUMMARY | 2024-11-29 13:03 | XMS_ITS | Encounter Summary ---
Author Organization [facility] Address [address] [facility] [place] [address] Care Team Providers Care Professor Of Spanish Name Role Phone Jasvir León MD Primary Care Provider [phone] Jasvir León MD Unavailable [phone] Leora Pollard RN Unavailable [phone] Encounter Details Date Type Department Care Team (Late st Contact Info) Description 11/06/2024 Abstract [facility] [address] [facility] 110 [place] [address] Jasvir León MD 112 [facility] 110 [place] [address] Social History Tobacco Use Types Packs/Day Years [...] How often do you attend chur or protestant services? 1 to 4 times per year 07/10/2024 Do you belong to any clubs o r organizations such as oriental orthodox groups, unions, fraternal or athletic groups, or [...] Recorded Patient Health Questionnaire-2 Score 0 10/27/2024 [facility] of Occupat ional Health - Occupational Stress [...] any time in the past 12 m [facility], were you homeless or living in [...] on filedocumented in this encounter Care Teams Professor Of Spanish Relationship Specialty Start Date End Date Jasvir León MD [address] [facility] [address] [place] [address] PCP - General Internal Medicine 11/20/22 Jasvir León MD [address] [facility] [address] [place] [address] PCP - ACO Reach 11/30/22 Leora Pollard, [place] Registered Nurse Family Medicine 07/10/24 documented as of this encounter
--- OUTSIDE RECORDS SUMMARY | 2024-11-29 13:03 | XMS_ITS | Encounter Summary ---
Author Organization [facility] Address [address] [facility] [place] [address] Care Team Providers Care Tumbler Tender Name Role Phone Jasvir León MD Primary Care Provider [phone] Jasvir León MD Unavailable [phone] Leora Pollard RN Unavailable [phone] Encounter Details Date Type Department Care Team (Late st Contact Info) Description 11/11/2024 Abstract [facility] 112 [facility] 110 [place] [address] Jasvir León MD 112 [facility] 110 [place] [address] Social History Tobacco Use Types Packs/Day Years [...] How often do you attend chur or judaism services? 1 to 4 times per year 07/10/2024 Do you belong to any clubs o r organizations such as jain groups, unions, fraternal or athletic groups, or [...] Recorded Patient Health Questionnaire-2 Score 0 10/27/2024 [facility] [place] of Occupat ional Health - Occupational Stress [...] any time in the past 12 m [facility], were you homeless or living in a group home (including now)? No 07/10/2024 Comments Unknown Sex and Gender Information Value Date Recorded Sex Assigned at Not on file Legal Sex Female 7:05 PM EDT Gender Identity Not on file Sexual Orientation Not on file documented as of this encounter Plan of Treatment Not on file documented as of this encounter Visit Diagnoses Not on filedocumented in this encounter Care Teams Tumbler Tender Relationship Specialty Start Date End Date Jasvir León MD [address] [facility] 110 [place] [address] PCP - General Internal Medicine 11/20/22 Jasvir León MD [address] [facility] [address] [place] [address] PCP - ACO Reach 11/30/22 Leora Pollard, [place] Registered Nurse Family Medicine 07/10/24 documented as of this encounter
--- OUTSIDE RECORDS SUMMARY | 2024-11-29 13:03 | XMS_ITS | Encounter Summary ---
Author Organization [facility] Address [address] [facility] [place] [address] Care Team Providers Care Gear Room Keeper Name Role Phone Jasvir León MD Primary Care Provider Jasvir León MD Unavailable [phone] Leora Pollard RN Unavailable [phone] Encounter Details Date Type Department Care Team (Late st Contact Info) Description 08/21/2024 Abstract [facility] 112 [facility] 110 [place] [address] Jasvir León MD 112 [facility] 110 [place] [address] Social History Tobacco Use Types Packs/Day Years [...] How often do you attend chur or moravian services? 1 to 4 times per year 07/10/2024 Do you belong to any clubs o r organizations such as sabianist groups, unions, fraternal or athletic groups, or [...] Recorded Patient Health Questionnaire-2 Score 0 04/11/2023 [facility] [place] of Occupat ional Health - Occupational Stress [...] any time in the past 12 m [facility], were you homeless or living in a prison (including now)? No 07/10/2024 Comments Unknown Sex and Gender Information Value Date Recorded Sex Assigned at Not on file Legal Sex Female 7:05 PM EDT Gender Identity Not on file Sexual Orientation Not on file documented as of this encounter Plan of Treatment Not on file documented as of this encounter Visit Diagnoses Not on filedocumented in this encounter Care Teams Gear Room Keeper Relationship Specialty Start Date End Date Jasvir León MD [address] [facility] 110 [place] [address] PCP - General Internal Medicine 11/20/22 Jasvir León MD [address] [facility] [address] [place] [address] PCP - ACO Reach 11/30/22 Leora Pollard, [place] Registered Nurse Family Medicine 07/10/24 documented as of this encounter
--- OUTSIDE RECORDS SUMMARY | 2024-11-29 13:03 | XMS_ITS | Encounter Summary ---
Author Organization [facility] Address [address] [facility] [place] [address] Care Team Providers Care Stripper Soft Plastic Name Role Phone Jasvir León MD Primary Care Provider [phone] Jasvir León MD Unavailable [phone] Leora Pollard RN Unavailable [phone] Encounter Details Date Type Department Care Team (Late st Contact Info) Description 09/15/2024 Abstract [facility] 112 [facility] 110 [place] [address] Jasvir León MD 112 [facility] 110 [place] [address] Social History Tobacco Use Types Packs/Day Years [...] How often do you attend chur or muslim services? 1 to 4 times per year 07/10/2024 Do you belong to any clubs o r organizations such as episcopal groups, unions, fraternal or athletic groups, or [...] Recorded Patient Health Questionnaire-2 Score 0 04/11/2023 [facility] [place] of Occupat ional Health - Occupational Stress [...] any time in the past 12 m [facility], were you homeless or living in a fdc (including now)? No 07/10/2024 Comments Unknown Sex and Gender Information Value Date Recorded Sex Assigned at Not on file Legal Sex Female 7:05 PM EDT Gender Identity Not on file Sexual Orientation Not on file documented as of this encounter Plan of Treatment Not on file documented as of this encounter Visit Diagnoses Not on filedocumented in this encounter Care Teams Stripper Soft Plastic Relationship Specialty Start Date End Date Jasvir León MD [address] [facility] 110 [place] [address] PCP - General Internal Medicine 11/20/22 Jasvir León MD [address] [facility] [address] [place] [address] PCP - ACO Reach 11/30/22 Leora Pollard, [place] Registered Nurse Family Medicine 07/10/24 documented as of this encounter
--- OUTSIDE RECORDS SUMMARY | 2024-11-29 13:03 | XMS_ITS | Encounter Summary ---
Author Organization [facility] Address [address] [facility] [place] [address] Care Team Providers Care Tax Technician Name Role Phone Jasvir León MD Primary Care Provider [phone] Jasvir León MD Unavailable [phone] Leora Pollard RN Unavailable [phone] Encounter Details Date Type Department Care Team (Late st Contact Info) Description 04/28/2024 Abstract [facility] 112 [facility] 110 [place] [address] Jasvir León MD 112 [facility] 110 [place] [address] Social History Tobacco Use Types Packs/Day Years [...] on filedocumented in this encounter Care Teams Tax Technician Relationship Specialty Start Date End Date Jasvir León MD [address] [facility] 110 [place] [address] PCP - General Internal Medicine 11/20/22 Jasvir León MD [address] [facility] 110 [place] [address] PCP - ACO Reach 11/30/22 Leora Pollard, RN Registered Nurse Family Medicine 07/10/24 documented as of this encounter
--- OUTSIDE RECORDS SUMMARY | 2024-11-29 13:03 | XMS_ITS | Encounter Summary ---
Author Organization [facility] Address [address] [facility] [place] [address] Care Team Providers Care Outbound Sales Representative Name Role Phone Jasvir León MD Primary Care Provider [phone] Jasvir León MD Unavailable [phone] Leora Pollard RN Unavailable [phone] Encounter Details Date Type Department Care Team (Late st Contact Info) Description 09/02/2024 Abstract [facility] 112 [facility] 110 [place] [address] Jasvir León MD 112 [facility] 110 [place] [address] Social History Tobacco Use Types Packs/Day Years [...] How often do you attend chur or mu-ism services? 1 to 4 times per year 07/10/2024 Do you belong to any clubs o r organizations such as mu-ism groups, unions, fraternal or athletic groups, or [...] 0 04/11/2023 [facility] [place] of Occupat ional Health - Occupational Stress [...] any time in the past 12 m [facility], were you homeless or living in a [...] on filedocumented in this encounter Care Teams Outbound Sales Representative Relationship Specialty Start Date End Date Jasvir León MD [address] [facility] 110 [place] [address] PCP - General Internal Medicine 11/20/22 Jasvir León MD [address] [facility] [address] [place] [address] PCP - ACO Reach 11/30/22 Leora Pollard, [place] Registered Nurse Family Medicine 07/10/24 documented as of this encounter
--- OUTSIDE RECORDS SUMMARY | 2024-11-29 13:03 | XMS_ITS | Encounter Summary ---
Author Organization [facility] Address [address] [facility] [place] [address] Care Team Providers Care Assistant Director Of Public Works Name Role Phone Jasvir León MD Primary Care Provider [phone] Jasvir León MD Unavailable [phone] Leora Pollard RN Unavailable [phone] Encounter Details Date Type Department Care Team (Late st Contact Info) Description 11/06/2024 Abstract [facility] 112 [facility] 110 [place] [address] Jasvir León MD 112 [facility] 110 [place] [address] Social History Tobacco Use Types Packs/Day Years [...] any clubs o r organizations such as holiness groups, unions, fraternal or athletic groups, or [...] Recorded Patient Health Questionnaire-2 Score 0 10/27/2024 [facility] [place] of Occupat ional Health - Occupational Stress [...] any time in the past 12 m [facility], were you homeless or living in a custodial (including now)? No 07/10/2024 Comments Unknown Sex and Gender Information Value Date Recorded Sex Assigned at Not on file Legal Sex Female 7:05 PM EDT Gender Identity Not on file Sexual Orientation Not on file documented as of this encounter Plan of Treatment Not on file documented as of this encounter Visit Diagnoses Not on filedocumented in this encounter Care Teams Assistant Director Of Public Works Relationship Specialty Start Date End Date Jasvir León MD [address] [facility] 110 [place] [address] PCP - General Internal Medicine 11/20/22 Jasvir León MD [address] [facility] [address] [place] [address] PCP - ACO Reach 11/30/22 Leora Pollard, [place] Registered Nurse Family Medicine 07/10/24 documented as of this encounter
--- OUTSIDE RECORDS SUMMARY | 2024-11-29 13:03 | XMS_ITS | Encounter Summary ---
Author Organization [facility] Address [address] [facility] [place] [address] Care Team Providers Care Imagery Analyst Name Role Phone Jasvir León MD Primary Care Provider [phone] Jasvir León MD Unavailable [phone] Leora Pollard RN Unavailable [phone] Encounter Details Date Type Department Care Team (Late st Contact Info) Description 10/23/2023 Clinisync Result Encounter [facility] External Department Unsolicited [...] Associated Diagnosis Comments CA ECHO DOPPLER COMPLETE 10/23/2023 6:03 PM EDT documented in this encounter Results * CA ECHO DOPPLER COMPLETE (10/23/2023 6:03 PM EDT) Anatomical Region Laterality Modality Other 10/23/2023 6:03 PM EDT Narrative 10/23/2023 6:04 [place] [address] Cardiology Report Signed Patient: KATHY VILLEGAS MR#: [id number] : 1940 Acct:[id number] Age/Sex: 83 / F ADM Date: 10/23/23 Loc: CARD Attending Dr: Ramy Gómez NP Ordering Physician: Ramy Gómez NP Date of Service: 10/23/23 Procedure(s): CA echo doppler complete Accession Number(s): [id number] cc: JASVIR LEÓN ; Ramy Gómez NP Patient Name: KATHY VILLEGAS MR#: [id number] : 1940 Exam Date: 10/23/2023 Ordering Doctor: MRS. RAMY GÓMEZ NP ECHOCARDIOGRAM REPORT PROCEDURE: CA ECHO DOPPLER COMPLETE INDICATIONS: Congestive heart failure, atrial fibrillation, bio-prosthetic aortic valve, hypertension COMPARISON: None. DESCRIPTION: COMPLETE ECHOCARDIOGRAM Real-time transthoracic echocardiography with 2D, M-mode, spectral and color flow Doppler performed. QUALITY: Technical quality was good. 62 , 155#, BSA 1.72 m2, BP 108/70 LEFT VENTRICLE: Normal chamber size. Thickened septal wall. Low normal systolic function. LV EF: Low normal left ventricular ejection fraction, (50-55%). DIASTOLIC: Not adequately assessed due to heart rhythm. ATRIAL SEPTUM: Visually appears intact. LEFT ATRIUM: Severe dilatation. RIGHT ATRIUM: Severe dilatation. RIGHT VENTRICLE: Severe dilatation. Systolic function appears preserved. TRICUSPID VALVE: Normal mobility and thickness. No stenosis with severe regurgitation. Doppler studies reveal severely (>60) elevated right sided pressures. RVSP 77 mmHg MITRAL VALVE: Moderately thickened with moderately decreased mobility. Mild to moderate mitral valve stenosis. Moderate mitral annular calcification. Mild mitral regurgitation. AORTIC VALVE: Bio-Prosthetic valve appears well seated in the aortic position with abnormal doppler flow. Moderately calcified aortic valve. Moderately diminished mobility. At least moderate stenosis of the bioprosthetic valve. Mild aortic regurgitation. DVI 0.2, Mean PG 17.75 mmHg. Mild aortic regurgitation. AORTIC ROOT: Normal diameter and appearance. Ascending aorta is normal in size. PULMONIC VALVE: Normal thickness and mobility. Mild regurgitation. PERICARDIUM: No evidence of pericardial effusion. IVC: IVC is dilated (2.3 cm) with no collapse. PLEURA: CONCLUSION: 1. The left ventricle is normal in size and exhibits low normal systolic function. Estimated LVEF is 50-55%. 2. The right ventricle is severely dilated and exhibits normal systolic function. 3. Severe biatrial dilatation. 4. 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 Mild aortic regurgitation is seen. 5. Mild to moderate mitral stenosis with mild mitral regurgitation. 6. Severe tricuspid regurgitation. 7. Severely elevated right-sided pressures. 8. Depending on the clinical picture, a transesophageal echocardiogram is recommended for further assessment of the valvular lesions. Adult Echocardiography Procedure Report Left Ventricle LVEDD (3.7 - 5.6 cm): 4.64 cm LVESD (2.2 - 4.0 cm): 4.06 cm LVIVS thickness (0.6 - 1.2 cm): 0.94 cm LVPW thickness (0.5 - 1.0 cm): 1.30 cm LVOT Max Gradient: 1.66 mm[Hg], 1.72 mm[Hg] LVOT Area (cm2): 0.65 m/s Peak Velocity (LVOT): 0.64 m/s, 0.66 m/s Mean Velocity (LVOT): 0.45 m/s LVOT Diameter 1.99 cm Left Atrium LA Volume Index (2D A2C): 58.64 ml/m2 Left Atrium Systolic Dimension: 5.15 cm Mitral Valve Mitral Valve E-Wave Peak Velocity: 1.61 m/s Right Ventricle Aorta AO Root Diam: 3.18 cm Ascending Ao Diam: 3.33 cm Aortic Valve AoV Area (Peak Merrick): 0.66 cm2, 0.65 cm2 AoV Area (VTI): 0.70 cm2, 0.75 cm2 Deceleration Hunt: 2.56 m/s2, 2.71 m/s2 Pressure Half-Time: 483.13 ms, 404.28 ms Peak Velocity(Antegrade Flow): 3.07 m/s Peak Gradient(Antegrade Flow): 37.70 mm[Hg] Mean Velocity(Antegrade Flow): 1.94 m/s Mean Gradient(Antegrade Flow): 17.75 mm[Hg] Velocity Time Integral: 63.88 cm Tricuspid Valve Peak Velocity (Regurgitant Flow): 3.24 m/s, 3.94 m/s Pulmonic Valve Peak Velocity: 1.22 m/s Peak Gradient: 8.27 mm[Hg], 4.06 mm[Hg] Right Atrium Right Atrium Systolic Pressure: 72.40 ml, 72.40 ml Dictated by: Perez Nova M.D. on 10/23/2023 at 17:51 Approved by: Perez Nova M.D. on 10/23/2023 at 18:03 Dictated By: PEREZ NOVA Signed By: 10/23/231803 DD/ 02 TD/TT: Ball Thread Machine Tender: Procedure Note Radiology, Radiologist, MD - 10/23/2023 [place] [address] Cardiology Report Signed Patient: KATHY VILLEGAS MMR#: [id number] : 9Acct:[id number] Age/Sex: 83 / FADM Date: 10/23/23 Loc: CARD Attending Dr: Ramy Gómez NP Ordering Physician: Ramy Gómez NP Date of Service: 10/23/23 Procedure(s): CA echo doppler complete Accession Number(s): [id number] cc: JASVIR LEÓN ; Ramy Gómez NP Patient Name: KATHY VILLEGAS MR#: [id number] : 1940 Exam Date: 10/23/2023 Ordering Doctor: MRS. RAMY GÓMEZ NP ECHOCARDIOGRAM REPORT PROCEDURE: CA ECHO DOPPLER COMPLETE INDICATIONS: Congestive heart failure, atrial fibrillation,bio-prosthetic aortic valve, hypertension COMPARISON: None. DESCRIPTION: COMPLETE ECHOCARDIOGRAM Real-time transthoracic echocardiography with 2D, M-mode, spectral and color flow Dopplerperformed. QUALITY: Technical quality was good. 62 , 155#, BSA 1.72 m2, BP108/70 LEFT VENTRICLE: Normal chamber size. Thickened septal wall. Lownormal systolic function. LV EF: Low normal left ventricular ejection fraction, (50-55%). DIASTOLIC: Not adequately assessed due to heart rhythm. ATRIAL SEPTUM: Visually appears intact. LEFT ATRIUM: Severe dilatation. RIGHT ATRIUM: Severe dilatation. RIGHT VENTRICLE: Severe dilatation. Systolic function appearspreserved. TRICUSPID VALVE: Normal mobility and thickness. No stenosis with severe regurgitation. Doppler studies reveal severely (>60) elevated right sided pressures. RVSP 77 mmHg MITRAL VALVE: Moderately thickened with moderately decreased mobility. Mild to moderate mitral valve stenosis. Moderate mitral annular calcification. Mild mitral regurgitation. AORTIC VALVE: Bio-Prosthetic valve appears well seated in the aortic position with abnormal doppler flow. Moderately calcified aortic valve. Moderately diminished mobility. At least moderate stenosis of the bioprosthetic valve. Mild aortic regurgitation. DVI 0.2, Mean PG 17.75 mmHg. Mild aortic regurgitation. AORTIC ROOT: Normal diameter and appearance. Ascending aorta is normalin size. PULMONIC VALVE: Normal thickness and mobility. Mild regurgitation. PERICARDIUM: No evidence of pericardial effusion. IVC: IVC is dilated (2.3 cm) with no collapse. PLEURA: CONCLUSION: 1. The left ventricle is normal in size and exhibits low normal systolic function. Estimated LVEF is 50-55%. 2. The right ventricle is severely dilated and exhibits normal systolic function. 3. Severe biatrial dilatation. 4. 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 Mild aortic regurgitation is seen. 5. Mild to moderate mitral stenosis with mild mitral regurgitation. 6. Severe tricuspid regurgitation. 7. Severely elevated right-sided pressures. 8. Depending on the clinical picture, a transesophageal echocardiogram is recommended for further assessment of the valvular lesions. Adult Echocardiography Procedure Report Left Ventricle LVEDD (3.7 - 5.6 cm): 4.64 cm LVESD (2.2 - 4.0 cm): 4.06 cm LVIVS thickness (0.6 - 1.2 cm): 0.94 cm LVPW thickness (0.5 - 1.0 cm): 1.30 cm LVOT Max Gradient: 1.66 mm[Hg], 1.72 mm[Hg] LVOT Area (cm2): 0.65 m/s Peak Velocity (LVOT): 0.64 m/s, 0.66 m/s Mean Velocity (LVOT): 0.45 m/s LVOT Diameter 1.99 cm Left Atrium LA Volume Index (2D A2C): 58.64 ml/m2 Left Atrium Systolic Dimension: 5.15 cm Mitral Valve Mitral Valve E-Wave Peak Velocity: 1.61 m/s Right Ventricle Aorta AO Root Diam: 3.18 cm Ascending Ao Diam: 3.33 cm Aortic Valve AoV Area (Peak Merrick): 0.66 cm2, 0.65 cm2 AoV Area (VTI): 0.70 cm2, 0.75 cm2 Deceleration Hunt: 2.56 m/s2, 2.71 m/s2 Pressure Half-Time: 483.13 ms, 404.28 ms Peak Velocity(Antegrade Flow): 3.07 m/s Peak Gradient(Antegrade Flow): 37.70 mm[Hg] Mean Velocity(Antegrade Flow): 1.94 m/s Mean Gradient(Antegrade Flow): 17.75 mm[Hg] Velocity Time Integral: 63.88 cm Tricuspid Valve Peak Velocity (Regurgitant Flow): 3.24 m/s, 3.94 m/s Pulmonic Valve Peak Velocity: 1.22 m/s Peak Gradient: 8.27 mm[Hg], 4.06 mm[Hg] Right Atrium Right Atrium Systolic Pressure: 72.40 ml, 72.40 ml Dictated by: Perez Nova M.D. on 10/23/2023 at 17:51 Approved by: Perez Nova M.D. on 10/23/2023 at 18:03 Dictated By: PEREZ NOVA Signed By:10/23/231803 DD/ 02 TD/TT: Ball Thread Machine Tender: Generic External Data Provider [facility] Final Result documented in this encounter Visit Diagnoses Not on filedocumented in this encounter Care Teams Imagery Analyst Relationship Specialty Start Date End Date Jasvir León MD [address] [facility] 110 [place] [address] PCP - General Internal Medicine 11/20/22 Jasvir León MD [address] [facility] 110 [place] [address] PCP - ACO Reach 11/30/22 Leora Pollard, RN Registered Nurse Family Medicine 07/10/24 documented as of this encounter
--- OUTSIDE RECORDS SUMMARY | 2024-11-29 13:03 | XMS_ITS | Encounter Summary ---
Author Organization [facility] Address [address] [facility] [place] [address] Care Team Providers Care Dinkey Press Operator Name Role Phone Jasvir León MD Primary Care Provider [phone] Jasvir León MD Unavailable [phone] Leora Pollard RN Unavailable Encounter Details Date Type Department Care Team (Late st Contact Info) Description 12/05/2023 Abstract [facility] 112 [facility] 110 [place] [address] Jasvir León MD 112 [facility] 110 [place] [address] Social History Tobacco Use Types Packs/Day Years [...] on filedocumented in this encounter Care Teams Dinkey Press Operator Relationship Specialty Start Date End Date Jasvir León MD [address] [facility] 110 [place] [address] PCP - General Internal Medicine 11/20/22 Jasvir León MD [address] [facility] 110 [place] [address] PCP - ACO Reach 11/30/22 Leora Pollard, RN Registered Nurse Family Medicine 07/10/24 documented as of this encounter
--- OUTSIDE RECORDS SUMMARY | 2024-11-29 13:03 | XMS_ITS | Encounter Summary ---
Author Organization [facility] Address [address] [facility] [place] [address] Care Team Providers Care Well Service Pump Equipment Operator Name Role Phone Jasvir León MD Primary Care Provider [phone] Jasvir León MD Unavailable [phone] Leora Pollard RN Unavailable [phone] Encounter Details Date Type Department Care Team (Late st Contact Info) Description 10/21/2024 Abstract [facility] 112 [facility] 110 [place] [address] Jasvir León MD 112 [facility] 110 [place] [address] Social History Tobacco Use Types Packs/Day Years [...] How often do you attend chur or sabianist services? 1 to 4 times per year 07/10/2024 Do you belong to any clubs o r organizations such as hoahaoism groups, unions, fraternal or athletic groups, or [...] Recorded Patient Health Questionnaire-2 Score 0 04/11/2023 [facility] [place] of Occupat ional Health - Occupational Stress [...] any time in the past 12 m [facility], were you homeless or living in [...] on filedocumented in this encounter Care Teams Well Service Pump Equipment Operator Relationship Specialty Start Date End Date Jasvir León MD [address] [facility] 110 [place] [address] PCP - General Internal Medicine 11/20/22 Jasvir León MD [address] [facility] [address] [place] [address] PCP - ACO Reach 11/30/22 Leora Pollard, [place] Registered Nurse Family Medicine 07/10/24 documented as of this encounter
--- OUTSIDE RECORDS SUMMARY | 2024-11-29 13:03 | XMS_ITS | Encounter Summary ---
Author Organization [facility] Address [address] [facility] [place] [address] Care Team Providers Care Materials Specialist Name Role Phone Jasvir León MD Primary Care Provider [phone] Jasvir León MD Unavailable Leora Pollard RN Unavailable [phone] Encounter Details Date Type Department Care Team (Late st Contact Info) Description 10/27/2024 Abstract [facility] 112 [facility] 110 [place] [address] Jasvir León MD 112 [facility] 110 [place] [address] Social History Tobacco Use Types Packs/Day Years [...] How often do you attend chur or mormonism services? 1 to 4 times per year 07/10/2024 Do you belong to any clubs o r organizations such as sikhism groups, unions, fraternal or athletic groups, or [...] Recorded Patient Health Questionnaire-2 Score 0 10/27/2024 [facility] [place] of Occupat ional Health - Occupational Stress [...] any time in the past 12 m [facility], were you homeless or living in a halfway (including now)? No 07/10/2024 Comments Unknown Sex and Gender Information Value Date Recorded Sex Assigned at Not on file Legal Sex Female 7:05 PM EDT Gender Identity Not on file Sexual Orientation Not on file documented as of this encounter Functional Status * Over the past 2 weeks, how often have you been bothered by any of the following problems? Question Answer Date of Assessment Author Little interest or pleasure in doing things Not at all 10/27/2024 10:28 AM EDT Bev Mejia L PN Feeling down, depressed, or hopeless Not at all 10/27/2024 10:28 AM SANDIPT Bev Mejia L PN Patient Health Questionnaire -2 Score 0 10/27/2024 10:28 AM Bev Ulloa L PN documented as of this encounter Plan of Treatment Not on file documented as of this encounter Visit Diagnoses Not on filedocumented in this encounter Care Teams Materials Specialist Relationship Specialty Start Date End Date Jasvir León MD [address] [facility] 110 [place] [address] PCP - General Internal Medicine 11/20/22 Jasvir León MD [address] [facility] [address] [place] [address] PCP - ACO Reach 11/30/22 Leora Pollard, [place] Registered Nurse Family Medicine 07/10/24 documented as of this encounter
--- OUTSIDE RECORDS SUMMARY | 2024-11-29 13:03 | XMS_ITS | Encounter Summary ---
Author Organization [facility] Address [address] [facility] [place] [address] Care Team Providers Care Core Microarchitect Name Role Phone Jasvir León MD Primary Care Provider [phone] Jasvir León MD Unavailable [phone] Leora Pollard RN Unavailable [phone] Encounter Details Date Type Department Care Team (Late st Contact Info) Description 11/21/2024 Abstract [facility] 112 [facility] 110 [place] [address] Jasvir León MD 112 [facility] 110 [place] [address] Social History Tobacco Use Types Packs/Day Years [...] any clubs o r organizations such as alevism groups, unions, fraternal or athletic groups, or [...] Recorded Patient Health Questionnaire-2 Score 0 10/27/2024 [facility] [place] of Occupat ional Health - Occupational Stress [...] time in the past 12 m [facility], were you homeless or living in a long-term (including now)? No 07/10/2024 Comments Unknown Sex and Gender Information Value Date Recorded Sex Assigned at Not on file Legal Sex Female 7:05 PM EDT Gender Identity Not on file Sexual Orientation Not on file documented as of this encounter Plan of Treatment Not on file documented as of this encounter Visit Diagnoses Not on filedocumented in this encounter Care Teams Core Microarchitect Relationship Specialty Start Date End Date Jasvir León MD [address] [facility] 110 [place] [address] PCP - General Internal Medicine 11/20/22 Jasvir León MD [address] [facility] [address] [place] [address] PCP - ACO Reach 11/30/22 Leora Pollard, [place] Registered Nurse Family Medicine 07/10/24 documented as of this encounter
--- OUTSIDE RECORDS SUMMARY | 2024-11-29 13:03 | XMS_ITS | Encounter Summary ---
Author Organization [facility] Address [address] [facility] [place] [address] Care Team Providers Care Wheel Cleaner Name Role Phone Jasvir León MD Primary Care Provider [phone] Jasvir León MD Unavailable [phone] Leora Pollard RN Unavailable [phone] Encounter Details Date Type Department Care Team (Late st Contact Info) Description 09/03/2024 Abstract [facility] 112 [facility] 110 [place] [address] Jasvir León MD 112 [facility] 110 [place] [address] Social History Tobacco Use Types Packs/Day Years [...] How often do you attend chur or hinduism services? 1 to 4 times per year 07/10/2024 Do you belong to any clubs o r organizations such as hindu groups, unions, fraternal or athletic groups, or [...] Recorded Patient Health Questionnaire-2 Score 0 04/11/2023 [facility] [place] of Occupat ional Health - Occupational Stress [...] time in the past 12 m [facility], were you homeless or living in a intermediate (including now)? No 07/10/2024 Comments Unknown Sex and Gender Information Value Date Recorded Sex Assigned at Not on file Legal Sex Female 7:05 PM EDT Gender Identity Not on file Sexual Orientation Not on file documented as of this encounter Plan of Treatment Not on file documented as of this encounter Visit Diagnoses Not on filedocumented in this encounter Care Teams Wheel Cleaner Relationship Specialty Start Date End Date Jasvir León MD [address] [facility] 110 [place] [address] PCP - General Internal Medicine 11/20/22 Jasvir León MD [address] [facility] 110 [place] [address] PCP - ACO Reach 11/30/22 Leora Pollard, [place] Registered Nurse Family Medicine 07/10/24 documented as of this encounter
--- OUTSIDE RECORDS SUMMARY | 2024-11-29 13:03 | XMS_ITS | Encounter Summary ---
Author Organization [facility] Address [address] [facility] [place] [address] Care Team Providers Care Chef Assistant Name Role Phone Jasvir León MD Primary Care Provider [phone] Jasvir León MD Unavailable [phone] Leora Pollard RN Unavailable Encounter Details Date Type Department Care Team (Late st Contact Info) Description 10/08/2024 [facility] 112 [facility] 110 [place] [address] Jasvir León MD 112 [facility] 110 [place] [address] Social History Tobacco Use Types Packs/Day Years [...] How often do you attend chur or catholic services? 1 to 4 times per year 07/10/2024 Do you belong to any clubs o r organizations such as adventism groups, unions, fraternal or athletic groups, or [...] Recorded Patient Health Questionnaire-2 Score 0 04/11/2023 [facility] [place] of Occupat ional Health - Occupational Stress [...] any time in the past 12 m [facility], were you homeless or living in a care home (including now)? No 07/10/2024 Comments Unknown Sex and Gender Information Value Date Recorded Sex Assigned at Not on file Legal Sex Female 7:05 PM EDT Gender Identity Not on file Sexual Orientation Not on file documented as of this encounter Plan of Treatment Not on file documented as of this encounter Visit Diagnoses Not on filedocumented in this encounter Care Teams Chef Assistant Relationship Specialty Start Date End Date Jasvir León MD [address] [facility] 110 [place] [address] PCP - General Internal Medicine 11/20/22 Jasvir León MD [address] [facility] [address] [place] [address] PCP - ACO Reach 11/30/22 Leora Pollard, [place] Registered Nurse Family Medicine 07/10/24 documented as of this encounter
--- OUTSIDE RECORDS SUMMARY | 2024-11-29 13:03 | XMS_ITS | Encounter Summary ---
Author Organization [facility] Address [address] [facility] [place] [address] Care Team Providers Care Booking Officer Name Role Phone Jasvir León MD Primary Care Provider [phone] Jasvir León MD Unavailable [phone] Leora Pollard RN Unavailable [phone] Encounter Details Date Type Department Care Team (Late st Contact Info) Description 10/01/2024 Abstract [facility] 112 [facility] 110 [place] [address] Jasvir León MD 112 [facility] 110 [place] [address] Social History Tobacco Use Types Packs/Day Years [...] How often do you attend chur or caodaism services? 1 to 4 times per year 07/10/2024 Do you belong to any clubs o r organizations such as congregational groups, unions, fraternal or athletic groups, or [...] Recorded Patient Health Questionnaire-2 Score 0 04/11/2023 [facility] of Occupat ional Health - Occupational Stress [...] any time in the past 12 m [facility], were you homeless or living in [...] on filedocumented in this encounter Care Teams Booking Officer Relationship Specialty Start Date End Date Jasvir León MD [address] [facility] 110 [place] [address] PCP - General Internal Medicine 11/20/22 Jasvir León MD [address] [facility] [address] [place] [address] PCP - ACO Reach 11/30/22 Leora Pollard, [place] Registered Nurse Family Medicine 07/10/24 documented as of this encounter
--- OUTSIDE RECORDS SUMMARY | 2024-11-29 13:03 | XMS_ITS | Encounter Summary ---
Author Organization [facility] Address [address] [facility] [place] [address] Care Team Providers Care Retail Marketing Coordinator Name Role Phone Jasvir León MD Primary Care Provider [phone] Jasvir León MD Unavailable [phone] Leora Pollard RN Unavailable [phone] Encounter Details Date Type Department Care Team (Late st Contact Info) Description 07/18/2023 Abstract [facility] 112 [facility] 110 [place] [address] Jasvir León MD 112 [facility] 110 [place] [address] Social History Tobacco Use Types Packs/Day Years [...] filedocumented in this encounter Care Teams Retail Marketing Coordinator Relationship Specialty Start Date End Date Jasvir León MD [address] [facility] 110 [place] [address] PCP - General Internal Medicine 11/20/22 Jasvir León MD [address] [facility] 110 [place] [address] PCP - ACO Reach 11/30/22 Leora Pollard, RN Registered Nurse Family Medicine 07/10/24 documented as of this encounter
--- OUTSIDE RECORDS SUMMARY | 2024-11-29 13:03 | XMS_ITS | Encounter Summary ---
Author Organization [facility] Address [address] [facility] [place] [address] Care Team Providers Care Administrative Appeals Tribunal Member Name Role Phone Jasvir León MD Primary Care Provider [phone] Jasvir León MD Unavailable Leora Pollard RN Unavailable [phone] Encounter Details Date Type Department Care Team (Late st Contact Info) Description 09/15/2024 Abstract [facility] 112 [facility] 110 [place] [address] Jasvir León MD 112 [facility] 110 [place] [address] Social History Tobacco Use Types Packs/Day Years [...] How often do you attend chur or sikh services? 1 to 4 times per year 07/10/2024 Do you belong to any clubs o r organizations such as mandaen groups, unions, fraternal or athletic groups, or [...] Recorded Patient Health Questionnaire-2 Score 0 04/11/2023 [facility] [place] of Occupat ional Health - Occupational Stress [...] in the past 12 m [facility], were you homeless or living in a correction (including now)? No 07/10/2024 Comments Unknown Sex and Gender Information Value Date Recorded Sex Assigned at Not on file Legal Sex Female 7:05 PM EDT Gender Identity Not on file Sexual Orientation Not on file documented as of this encounter Plan of Treatment Not on file documented as of this encounter Visit Diagnoses Not on filedocumented in this encounter Care Teams Administrative Appeals Tribunal Member Relationship Specialty Start Date End Date Jasvir León MD [address] [facility] 110 [place] [address] PCP - General Internal Medicine 11/20/22 Jasvir León MD [address] [facility] [address] [place] [address] PCP - ACO Reach 11/30/22 Leora Pollard, [place] Registered Nurse Family Medicine 07/10/24 documented as of this encounter
--- OUTSIDE RECORDS SUMMARY | 2024-11-29 13:03 | XMS_ITS | Encounter Summary ---
Author Organization [facility] Address [address] [place] [address] Care Team Providers Care Distillery Laborer Name Role Phone Jasvir León MD Primary Care Provider [phone] Jasvir León MD Unavailable [phone] Leora Pollard RN Unavailable [phone] Encounter Details Date Type Department Care Team (Late st Contact Info) Description 11/25/2024 Patient Outreach [facility] [address] [place] [address] Monica Ross LPN Social History [...] How often do you attend chur or voodoo services? 1 to 4 times per year 07/10/2024 Do you belong to any clubs o r organizations such as mormonism groups, unions, fraternal or athletic groups, or [...] Questionnaire-2 Score 0 10/27/2024 [facility] [place] of Occupat ional Health - Occupational Stress [...] any time in the past 12 m [facility], were you homeless or living in a intermediate (including now)? No 07/10/2024 Comments Unknown Sex and Gender Information Value Date Recorded Sex Assigned at Not on file Legal Sex Female 7:05 PM EDT Gender Identity Not on file Sexual Orientation Not on file documented as of this encounter Progress Notes * Monica Ross LPN - 11/25/2024 3:17 PM EDT <November 25, 2024, 15:18 - Monica Ross LPN> [facility] and spoke with nurse Neetu and she states that pt is still in antibiotics, oxygen 4 liters she Is still pretty weak. She can stand and pivot only currently. No dc date. * ZOEY An - 11/25/2024 3:17 PM EDT Acknowledged. documented in this encounter Plan of Treatment Not on file documented as of this encounter Visit Diagnoses Not on filedocumented in this encounter Care Teams Distillery Laborer Relationship Specialty Start Date End Date Jasvir León MD [address] [facility] [address] 110 [place] [address] PCP - General Internal Medicine 11/20/22 Jasvir León MD [address] [facility] 110 [place] [address] PCP - ACO Reach 11/30/22 Leora Pollard, RN Registered Nurse Family Medicine 07/10/24 documented as of this encounter
--- OUTSIDE RECORDS SUMMARY | 2024-11-29 13:03 | XMS_ITS | Encounter Summary ---
Author Organization [facility] Address [address] [facility] [place] [address] Care Team Providers Care Caramel Cutter Machine Name Role Phone Jasvir León MD Primary Care Provider [phone] Jasvir León MD Unavailable [phone] Leora Pollard RN Unavailable [phone] Encounter Details Date Type Department Care Team (Late st Contact Info) Description 11/21/2024 Abstract [facility] 112 [facility] 110 [place] [address] Jasvir León MD 112 [facility] 110 [place] [address] Social History Tobacco Use Types Packs/Day Years [...] How often do you attend chur or denominational services? 1 to 4 times per year 07/10/2024 Do you belong to any clubs o r organizations such as bahai groups, unions, fraternal or athletic groups, or [...] Recorded Patient Health Questionnaire-2 Score 0 10/27/2024 [facility] [place] of Occupat ional Health - Occupational Stress [...] on filedocumented in this encounter Care Teams Caramel Cutter Machine Relationship Specialty Start Date End Date Jasvir León MD [address] [facility] 110 [place] [address] PCP - General Internal Medicine 11/20/22 Jasvir León MD [address] [facility] [address] [place] [address] PCP - ACO Reach 11/30/22 Leora Pollard, [place] Registered Nurse Family Medicine 07/10/24 documented as of this encounter
--- OUTSIDE RECORDS SUMMARY | 2024-11-29 13:03 | XMS_ITS | Encounter Summary ---
Author Organization [facility] Address [address] [facility] [place] [address] Care Team Providers Care White Washer Name Role Phone Jasvir León MD Primary Care Provider [phone] Jasvir León MD Unavailable [phone] Leora Pollard RN Unavailable [phone] Encounter Details Date Type Department Care Team (Late st Contact Info) Description 04/25/2024 Abstract [facility] 112 [facility] 110 [place] [address] Jasvir León MD [address] [facility] 110 [place] [address] Social History Tobacco Use Types Packs/Day Years [...] on filedocumented in this encounter Care Teams White Washer Relationship Specialty Start Date End Date Jasvir León MD [address] [facility] 110 [place] [address] PCP - General Internal Medicine 11/20/22 Jasvir León MD [address] [facility] 110 [place] [address] PCP - ACO Reach 11/30/22 Leora Pollard, RN Registered Nurse Family Medicine 07/10/24 documented as of this encounter
--- OUTSIDE RECORDS SUMMARY | 2024-11-29 13:03 | XMS_ITS | Encounter Summary ---
Author Organization [facility] Address [address] [facility] [place] [address] Care Team Providers Care Manager Special Events Name Role Phone Jasvir León MD Primary Care Provider [phone] Jasvir León MD Unavailable [phone] Leora Pollard RN Unavailable [phone] Encounter Details Date Type Department Care Team (Late st Contact Info) Description 04/28/2024 Abstract [facility] 112 [facility] 110 [place] [address] Jasvir León MD 112 [facility] 110 [place] [address] Social History Tobacco Use Types Packs/Day Years [...] on filedocumented in this encounter Care Teams Manager Special Events Relationship Specialty Start Date End Date Jasvir León MD [address] [facility] 110 [place] [address] PCP - General Internal Medicine 11/20/22 Jasvir León MD [address] [facility] 110 [place] [address] PCP - ACO Reach 11/30/22 Leora Pollard, RN Registered Nurse Family Medicine 07/10/24 documented as of this encounter
--- OUTSIDE RECORDS SUMMARY | 2024-11-29 13:03 | XMS_ITS | Patient Health Record ---
Author Organization [facility] Address [address] [place] [address] Care Team Providers Care Glaucoma Specialist Name Role Phone PCP, NO Primary Care Provider Tara Godfrey Unavailable [phone] Allergies Allergen (clinical drug ingredient) Drug/Non Drug Allergy documented on EMR Reaction Allergy Type Onset Date Status Penicillin (uncoded) hives Allergy Active codeine codeine stomach issues Drug Allergy Ac tive Reason For Referral No Information Medications Medication SIG (Take, Route, Frequency, Duration) Notes Start Date End Date Status rOPINIRole 0.25 mg 1 tab(s) orally once a day, at bedtime Active amLODIPine 5 mg 1 tab(s) orally once a day Active lisinopril 20 mg 1 tab(s) orally once a day Active [place] 325 mg-5 mg 1 tab(s) orally ever [...] tab(s) oral ly once a day Active Social History Tobacco Use: Social History Observation Description Date Details (start date - stop date) Never Smoker NA - NA AUDIT-C (Standard) Question Answer Notes Did you have a drink containing alcohol in the p ast year? No Points 0 Interpretation Negative Tobacco Control (Standard) Question Answer Notes Tobacco use: Nonsmoker Problems Problem Type SNOMED Code ICD Code Onset Dates Problem Status W/U Status Risk Notes Problem Lumbar spondylosis (738752905) Lumbar spondylosis (M47.816) Active confirmed Problem Disorder of lumbar disc (269638113) Lumbar disc disease (M51.9) Active confirmed Problem Neurogenic claudication (533845868) Lumbar stenosis with neurogenic claudication (M48.062) Active confirmed Problem Pathological fracture of vertebra (769550642) Age-related osteoporosis with current pathological fracture of vertebra, initial encounter (M80.08XA) Active confirmed Problem 974078244 Compression fracture of T12 vertebra, initial encounter (S22.080A) Active confirmed Problem Age-related osteoporosis with current pathological fracture of vertebra, with routine healing, subsequent encounter (M80.08XD) Active confirmed Plan Of Treatment Pending Test Test Name Order Date Kyphoplasty 05/07/2023 Insurance Providers Payer Name Payer Address Payer Phone Subscriber Number Group Number Insured Name Patient Relationship to Insured Coverage Start Date Coverage [place] [address] [place] [address] [id number] KATHY VILLEGAS Self - patient is the insured [facility] [address] [place] [address] [phone] [id number] KATHY VILLEGAS Self - patient is the insured Medical (General) History Medical History History ICD Code Heart problems: Yes Diabetes: Yes High Blood Pressure: Yes Anxiety: Yes Drug Allergies: Yes thyroid problems Kidney problems Surgical History Surgery Date(Month/Year) Heart valve Cholecystectomy (gallbladder removal)
--- OUTSIDE RECORDS SUMMARY | 2024-11-29 13:03 | XMS_ITS | Encounter Summary ---
Author Organization [facility] Address [address] [facility] [place] [address] Care Team Providers Care Manager Of Construction Name Role Phone Jasvir León MD Primary Care Provider [phone] Jasvir León MD Unavailable [phone] Leora Pollard RN Unavailable [phone] Encounter Details Date Type Department Care Team (Late st Contact Info) Description 10/30/2024 Abstract [facility] 112 [facility] 110 [place] [address] Jasvir León MD 112 [facility] 110 [place] [address] Social History Tobacco Use Types Packs/Day Years [...] How often do you attend chur or taoist services? 1 to 4 times per year 07/10/2024 Do you belong to any clubs o r organizations such as anglican groups, unions, fraternal or athletic groups, or [...] Recorded Patient Health Questionnaire-2 Score 0 10/27/2024 [facility] [place] of Occupat ional Health - Occupational Stress [...] any time in the past 12 m [facility], were you homeless or living [...] filedocumented in this encounter Care Teams Manager Of Construction Relationship Specialty Start Date End Date Jasvir León MD [address] [facility] 110 [place] [address] PCP - General Internal Medicine 11/20/22 Jasvir León MD [address] [facility] [address] [place] [address] PCP - ACO Reach 11/30/22 Leora Pollard, [place] Registered Nurse Family Medicine 07/10/24 documented as of this encounter
--- OUTSIDE RECORDS SUMMARY | 2024-11-29 13:03 | XMS_ITS | Encounter Summary ---
Author Organization [facility] Address [address] [facility] [place] [address] Care Team Providers Care Pants Presser Name Role Phone Jasvir León MD Primary Care Provider [phone] Jasvir León MD Unavailable [phone] Leora Pollard RN Unavailable [phone] Encounter Details Date Type Department Care Team (Late st Contact Info) Description 10/09/2024 Abstract [facility] 112 [facility] 110 [place] [address] Jasvir León MD 112 [facility] 110 [place] [address] Social History Tobacco Use Types Packs/Day Years [...] How often do you attend chur or sikhism services? 1 to 4 times per year 07/10/2024 Do you belong to any clubs o r organizations such as zoroastrian groups, unions, fraternal or athletic groups, or [...] Recorded Patient Health Questionnaire-2 Score 0 04/11/2023 [facility] [place] of Occupat ional Health - Occupational Stress [...] time in the past 12 m [facility], were you homeless or living in [...] on filedocumented in this encounter Care Teams Pants Presser Relationship Specialty Start Date End Date Jasvir León MD [address] [facility] 110 [place] [address] PCP - General Internal Medicine 11/20/22 Jasvir León MD [address] [facility] [address] [place] [address] PCP - ACO Reach 11/30/22 Leora Pollard, [place] Registered Nurse Family Medicine 07/10/24 documented as of this encounter
--- OUTSIDE RECORDS SUMMARY | 2024-11-29 13:03 | XMS_ITS | Encounter Summary ---
Author Organization [facility] Address [address] [facility] [place] [address] Care Team Providers Care Delivery Rn Name Role Phone Jasvir León MD Primary Care Provider [phone] Jasvir León MD Unavailable [phone] Leora Pollard RN Unavailable [phone] Encounter Details Date Type Department Care Team (Late st Contact Info) Description 05/01/2024 Abstract [facility] 112 [facility] 110 [place] [address] Jasvir León MD [address] [facility] 110 [place] [address] Social History Tobacco Use Types Packs/Day Years [...] on filedocumented in this encounter Care Teams Delivery Rn Relationship Specialty Start Date End Date Jasvir León MD [address] [facility] 110 [place] [address] PCP - General Internal Medicine 11/20/22 Jasvir León MD [address] [facility] 110 [place] [address] PCP - ACO Reach 11/30/22 Leora Pollard, RN Registered Nurse Family Medicine 07/10/24 documented as of this encounter
--- OUTSIDE RECORDS SUMMARY | 2024-11-29 13:03 | XMS_ITS | Encounter Summary ---
Author Organization [facility] Address [address] [facility] [place] [address] Care Team Providers Care Professional Security Officer Name Role Phone Jasvir León MD Primary Care Provider [phone] Jasvir León MD Unavailable [phone] Leora Pollard RN Unavailable [phone] Encounter Details Date Type Department Care Team (Late st Contact Info) Description 08/27/2024 Abstract [facility] 112 [facility] 110 [place] [address] Jasvir León MD 112 [facility] 110 [place] [address] Social History Tobacco Use Types Packs/Day Years [...] How often do you attend chur or tenriism services? 1 to 4 times per year 07/10/2024 Do you belong to any clubs o r organizations such as synagogue groups, unions, fraternal or athletic groups, or [...] Recorded Patient Health Questionnaire-2 Score 0 04/11/2023 [facility] [place] of Occupat ional Health - Occupational Stress [...] any time in the past 12 m [facility], were you homeless or [...] on filedocumented in this encounter Care Teams Professional Security Officer Relationship Specialty Start Date End Date Jasvir León MD [address] [facility] 110 [place] [address] PCP - General Internal Medicine 11/20/22 Jasvir León MD [address] [facility] 110 [place] [address] PCP - ACO Reach 11/30/22 Leora Pollard, [place] Registered Nurse Family Medicine 07/10/24 documented as of this encounter
--- OUTSIDE RECORDS SUMMARY | 2024-11-29 13:03 | XMS_ITS | Encounter Summary ---
Author Organization [facility] Address [address] [facility] [place] [address] Care Team Providers Care Production Pattern Maker Name Role Phone Jasvir León MD Primary Care Provider Jasvir León MD Unavailable Leora Pollard RN Unavailable Encounter Details Date Type Department Care Team (Late st Contact Info) Description 04/25/2024 Abstract [facility] 112 [facility] 110 [place] [address] Jasvir León MD 112 [facility] 110 [place] [address] Social History Tobacco Use Types Packs/Day Years [...] on filedocumented in this encounter Care Teams Production Pattern Maker Relationship Specialty Start Date End Date Jasvir León MD [address] [facility] 110 [place] [address] PCP - General Internal Medicine 11/20/22 Jasvir León MD [address] [facility] 110 [place] [address] PCP - ACO Reach 11/30/22 Leora Pollard, RN Registered Nurse Family Medicine 07/10/24 documented as of this encounter
--- OUTSIDE RECORDS SUMMARY | 2024-11-29 13:03 | XMS_ITS | Encounter Summary ---
Author Organization [facility] Address [address] [facility] [place] [address] Care Team Providers Care Display Manager Name Role Phone Jasvir León MD Primary Care Provider [phone] Jasvir León MD Unavailable [phone] Leora Pollard RN Unavailable [phone] Encounter Details Date Type Department Care Team (Late st Contact Info) Description 10/17/2023 Abstract [facility] 112 [facility] 110 [place] [address] Jasvir León MD 112 [facility] 110 [place] [address] Social History Tobacco Use Types Packs/Day Years [...] on filedocumented in this encounter Care Teams Display Manager Relationship Specialty Start Date End Date Jasvir León MD [address] [facility] 110 [place] [address] PCP - General Internal Medicine 11/20/22 Jasvir León MD [address] [facility] 110 [place] [address] PCP - ACO Reach 11/30/22 Leora Pollard, RN Registered Nurse Family Medicine 07/10/24 documented as of this encounter
--- OUTSIDE RECORDS SUMMARY | 2024-11-29 13:03 | XMS_ITS | Encounter Summary ---
Author Organization [facility] Address [address] [facility] [place] [address] Care Team Providers Care Plant Health Manager Name Role Phone Jasvir León MD Primary Care Provider [phone] Jasvir León MD Unavailable [phone] Leora Pollard RN Unavailable [phone] Encounter Details Date Type Department Care Team (Late st Contact Info) Description 11/06/2024 Abstract [facility] [address] [facility] 110 [place] [address] Jasvir León MD 112 [facility] 110 [place] [address] Social History Tobacco Use Types Packs/Day Years [...] How often do you attend chur or evangelical services? 1 to 4 times per year 07/10/2024 Do you belong to any clubs o r organizations such as muslim groups, unions, fraternal or athletic groups, or [...] Recorded Patient Health Questionnaire-2 Score 0 10/27/2024 [facility] of Occupat ional Health - Occupational Stress [...] any time in the past 12 m [facility], were you homeless or living in a [place] health care facility (including now)? No 07/10/2024 Comments Unknown Sex and Gender Information Value Date Recorded Sex Assigned at Not on file Legal Sex Female 7:05 PM EDT Gender Identity Not on file Sexual Orientation Not on file documented as of this encounter Plan of Treatment Not on file documented as of this encounter Visit Diagnoses Not on filedocumented in this encounter Care Teams Plant Health Manager Relationship Specialty Start Date End Date Jasvir León MD [address] [facility] [address] [place] [address] PCP - General Internal Medicine 11/20/22 Jasvir León MD [address] [facility] [address] [place] [address] PCP - ACO Reach 11/30/22 Leora Pollard, [place] Registered Nurse Family Medicine 07/10/24 documented as of this encounter
--- OUTSIDE RECORDS SUMMARY | 2024-11-29 13:03 | XMS_ITS | Encounter Summary ---
Author Organization [facility] Address [address] [facility] [place] [address] Care Team Providers Care Clubhouse Attendant Name Role Phone Jasvir León MD Primary Care Provider [phone] Jasvir León MD Unavailable [phone] Leora Pollard RN Unavailable [phone] Encounter Details Date Type Department Care Team (Late st Contact Info) Description 12/05/2023 Abstract [facility] 112 [facility] 110 [place] [id number] Jasvir León MD 112 [facility] 110 [place] [address] Social History Tobacco Use Types Packs/Day Years [...] on filedocumented in this encounter Care Teams Clubhouse Attendant Relationship Specialty Start Date End Date Jasvir León MD [address] [facility] 110 [place] [address] PCP - General Internal Medicine 11/20/22 Jasvir León MD [address] [facility] [address] [place] [address] PCP - ACO Reach 11/30/22 Leora Pollard, RN Registered Nurse Family Medicine 07/10/24 documented as of this encounter
--- OUTSIDE RECORDS SUMMARY | 2024-11-29 13:03 | XMS_ITS | Encounter Summary ---
Author Organization [facility] Address [address] [facility] [place] [address] Care Team Providers Care Precision Lens Grinder Name Role Phone Jasvir León MD Primary Care Provider [phone] Jasvir León MD Unavailable [phone] Leora Pollard RN Unavailable [phone] Encounter Details Date Type Department Care Team (Late st Contact Info) Description 12/05/2023 Abstract [facility] [address] [facility] 110 [place] [id number] Jasvir León MD 112 [facility] 110 [place] [address] Social History Tobacco Use Types Packs/Day Years [...] on filedocumented in this encounter Care Teams Precision Lens Grinder Relationship Specialty Start Date End Date Jasvir León MD [address] [facility] 110 [place] [address] PCP - General Internal Medicine 11/20/22 Jasvir León MD [address] [facility] [address] [place] [address] PCP - ACO Reach 11/30/22 Leora Pollard, RN Registered Nurse Family Medicine 07/10/24 documented as of this encounter
--- OUTSIDE RECORDS SUMMARY | 2024-11-29 13:03 | XMS_ITS | Encounter Summary ---
Author Organization [facility] Address [address] [facility] [place] [address] Care Team Providers Care Fiberglass Boat Maker Name Role Phone Jasvir Lóen MD Primary Care Provider [phone] Jasvir León MD Unavailable [phone] Leora Pollard RN Unavailable [phone] Encounter Details Date Type Department Care Team (Late st Contact Info) Description 11/05/2024 Abstract [facility] 112 [facility] 110 [place] [address] Jasvir León MD 112 [facility] 110 [place] [address] Social History Tobacco Use Types Packs/Day Years [...] How often do you attend chur or lutheran services? 1 to 4 times per year 07/10/2024 Do you belong to any clubs o r organizations such as yarsani groups, unions, fraternal or athletic groups, or [...] Recorded Patient Health Questionnaire-2 Score 0 10/27/2024 [facility] [place] of Occupat ional Health - Occupational Stress [...] time in the past 12 m [facility], were you homeless or living in a [...] on filedocumented in this encounter Care Teams Fiberglass Boat Maker Relationship Specialty Start Date End Date Jasvir León MD [address] [facility] 110 [place] [address] PCP - General Internal Medicine 11/20/22 Jasvir León MD [address] [facility] [address] [place] [address] PCP - ACO Reach 11/30/22 Leora Pollard, [place] Registered Nurse Family Medicine 07/10/24 documented as of this encounter
--- NOTE | 2024-11-29 13:04 | ED.GENADUL1 ---
HPI HPI - General Adult General Chief complaint: Altered Mental Status Stated complaint: ALTERED MENTAL STATUS Time Seen by Provider: 11/29/24 13:01 Source: patient and other Source information: EMS Mode of arrival: ambulance History of Present Illness HPI narrative: 84-year-old female presents from [facility] for generalized weakness. Most of the history is obtained from the paramedics but also from retirement report. She apparently had fallen 3 times in the past 3 days. Today's fall however was her sliding out of the chair without injury. The previous 2 falls were without significant injury as well. Reportedly her blood sugar was 53 and the [facility] gave her some fluid and rechecked it and it was 55. Paramedics reported a blood sugar of 90. She does not seem to have any complaints but she is also not sure why she is here. Related Data Home Medications ?Medication ?Instructions ?Recorded ?Confirmed atorvastatin 20 mg tablet 20 mg PO QPM 11/17/23 11/29/24 bupropion HCl 150 mg tablet,12 hr 150 mg PO BID 11/17/23 11/29/24 sustained-release digoxin 125 mcg (0.125 mg) tablet 0.125 mg PO DAILY 11/17/23 11/29/24 escitalopram oxalate 10 mg tablet 10 mg PO DAILY 11/17/23 11/29/24 insulin lispro protamine-lispro 10 unit subcut BID 11/17/23 11/29/24 100 unit/mL (75-25) subcutaneous pen omeprazole 40 mg capsule,delayed 40 mg PO DAILY 11/17/23 11/29/24 release ropinirole 0.25 mg tablet 0.25 mg PO QPM 11/17/23 11/29/24 torsemide 20 mg tablet 20 mg PO DAILY 11/17/23 11/29/24 carvedilol 12.5 mg tablet (Coreg) 12.5 mg PO BID 08/15/24 11/29/24 amitriptyline 25 mg tablet 25 mg PO .QHS 11/11/24 11/29/24 budesonide 160 mcg-glycopyr 9 2 inh inhalation DAILY 11/11/24 11/29/24 mcg-formot 4.8 mcg/actuation HFA inhaler (Breztri Aerosphere) colchicine 0.6 mg tablet 0.6 mg PO DAILY 11/12/24 11/29/24 albuterol sulfate 2.5 mg/3 mL 2.5 mg inhalation Q6H PRN 11/29/24 11/29/24 (0.083 %) solution for nebulization shortness of breath or wheezing Previous Rx's ?Medication ?Instructions ?Recorded alprazolam 0.25 mg tablet 0.25 mg PO .QHS PRN anxiety 2 days 11/15/24 #2 tabs gabapentin 100 mg capsule 100 mg PO TID 2 days #6 caps 11/15/24 Allergies Allergy/AdvReac Type Severity Reaction Status Date / Time codeine Allergy Intermediate Unknown Verified 08/14/24 21:41 Penicillins Allergy Intermediate Unknown Verified 08/14/24 21:41 Opioid HPI Opioid Management Most Recent Opioid Data: Last Pain Scale 0 11/14/24, 06:14 Last ORT Total Score 1 11/11/24, 14:27 Last ORT Risk Category Low Risk 11/11/24, 14:27 Review of Systems ROS Narrative Not obtainable, age PFSH [facility] Medical History (Updated 11/29/24 @ 15:54 by Rei Parry MD) Atrial fibrillation with RVR ?I48.91 - Unspecified atrial fibrillation (ICD-10) CKD stage 3b, GFR 30-44 ml/min ?N18.32 - Chronic kidney disease, stage 3b (ICD-10) NSTEMI (non-ST elevated myocardial infarction) ?I21.4 - Non-ST elevation (NSTEMI) myocardial infarction (ICD-10) Acute on chronic renal failure ?N17.9 - Acute kidney failure, unspecified (ICD-10) ?N18.9 - Chronic kidney disease, unspecified (ICD-10) Gastroenteritis ?K52.9 - Noninfective gastroenteritis and colitis, unspecified (ICD-10) Dehydration ?E86.0 - Dehydration (ICD-10) Nausea, vomiting, and diarrhea ?R11.2 - Nausea with vomiting, unspecified (ICD-10) ?R19.7 - Diarrhea, unspecified (ICD-10) GERD without esophagitis ?K21.9 - Gastro-esophageal reflux disease without esophagitis (ICD-10) Depression ?F32.A - Depression, unspecified (ICD-10) Chronic hypoxic respiratory failure ?J96.11 - Chronic respiratory failure with hypoxia (ICD-10) Multiple rib fractures ?S22.49XA - Multiple fractures of ribs, unspecified side, initial encounter for closed fracture (ICD-10) Type 2 diabetes mellitus with hyperglycemia ?E11.65 - Type 2 diabetes mellitus with hyperglycemia (ICD-10) Aortic stenosis, moderate ?I35.0 - Nonrheumatic aortic (valve) stenosis (ICD-10) Persistent atrial fibrillation ?I48.19 - Other persistent atrial fibrillation (ICD-10) Chronic heart failure with preserved ejection fraction (HFpEF) ?I50.32 - Chronic diastolic (congestive) heart failure (ICD-10) Hypertension ?I10 - Essential (primary) hypertension (ICD-10) HLD (hyperlipidemia) ?E78.5 - Hyperlipidemia, unspecified (ICD-10) CKD (chronic kidney disease) stage 3, GFR 30-59 ml/min ?N18.30 - Chronic kidney disease, stage 3 unspecified (ICD-10) Hypothyroid ?E03.9 - Hypothyroidism, unspecified (ICD-10) Acute thoracic back pain ?M54.6 - Pain in thoracic spine (ICD-10) Closed compression fracture of L1 vertebra ?S32.010A - Wedge compression fracture of first lumbar vertebra, initial encounter for closed fracture (ICD-10) Compression fracture of L1 lumbar vertebra ?S32.010A - Wedge compression fracture of first lumbar vertebra, initial encounter for closed fracture (ICD-10) Acute pain of left foot ?M79.672 - Pain in left foot (ICD-10) 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 ?F32.89 - Other specified depressive episodes (ICD-10) Anxiety ?F41.9 - Anxiety disorder, unspecified (ICD-10) Diabetes ?E11.9 - Type 2 diabetes mellitus without complications (ICD-10) Atrial fibrillation ?I48.91 - Unspecified atrial fibrillation (ICD-10) Surgical History Status post aortic valve repair ?Z98.890 - Other specified postprocedural states (ICD-10) S/P ablation of atrial fibrillation ?Z98.890 - Other specified postprocedural states (ICD-10) ?Z86.79 - Personal history of other diseases of the circulatory system (ICD-10) History of carpal tunnel surgery of right wrist ?Z98.890 - Other specified postprocedural states (ICD-10) H/O: hysterectomy ?Z90.710 - Acquired absence of both cervix and uterus (ICD-10) Aortic valve replaced ?Z95.2 - Presence of prosthetic heart valve (ICD-10) History of cholecystectomy ?Z90.49 - Acquired absence of other specified parts of digestive tract (ICD-10) Family History Mother Family history of CHF (congestive heart failure) Father Family history of diabetes mellitus Sister Family history of diabetes mellitus Son Family history of myocardial infarction Social History Within the past year, how often did you have a drink containing alcohol: monthly or less Within the past year, how many standard drinks containing alcohol did you have on a typical day: 1 or 2 Within the past year, how often did you have six or more drinks on one occasion: never Total score: 0 Score interpretation: A score less than 3 is consistent with normal alcohol consumption. Smoking status: Former smoker Non-prescribed substance use: denies use Previous occupational history: retired Highest level of school completed/degree received: high school graduate Are you now , , , , never or living with a partner: In a typical week, how many times do you talk on the telephone with family, friends, or neighbors: 3 or more times per week How often do you get together with friends or relatives: 3 or more times per week How often do you attend religion or uatsdin services: 4 or more times per year Do you belong to any clubs or organizations such as religion groups unions, fraternal or athletic groups, or school groups: no Total score: 2 Score interpretation: A score of greater than or equal to 2 indicates the lowest level of social isolation. Little interest or pleasure in doing things: not at all Feeling down, depressed, or hopeless: not at all Feel stressed/tense/nervous/anxious/difficulty sleeping: not at all Gender Identity: female Exam Narrative Exam Narrative: Nurses note and vital signs reviewed and patient is not hypoxic. General: The patient appears in no apparent distress. Skin: Warm, dry, no pallor noted. There is no rash noted. Head: Normocephalic, atraumatic Eye: Normal conjunctiva, no drainage Ears, Nose, Mouth, and Throat: oral mucosa is moist. Nares patent. Cardiovascular: Regular Rate and Rhythm Respiratory: Patient is in no distress, no accessory muscle use, lungs are clear to auscultation, no wheezing, rales or rhonchi Back: non-tender GI: Soft and nontender Musculoskeletal: The patient has no evidence of calf tenderness, no pitting edema, symmetrical pulses noted bilaterally Neurological: Awake and alert. She knows her name and where she is but she does not know the year or why she is here. She moves all 4 extremities appropriately. Psychiatric: Cooperative Constitutional Vital Signs, click to edit/add: Last Vital Signs Pulse 64 11/29/24 12:55 Resp 16 11/29/24 12:55 BP 106/65 11/29/24 12:55 Pulse Ox 90 L 11/29/24 12:55 O2 Del Method Nasal Cannula 11/29/24 12:55 O2 Flow Rate 4 11/29/24 12:55 Course Vital Signs Vital signs: Vital Signs Pulse Rate 64 11/29/24 12:55 Respiratory Rate 16 11/29/24 12:55 Blood Pressure 106/65 11/29/24 12:55 Pulse Oximetry 90 L 11/29/24 12:55 Oxygen Delivery Method Nasal Cannula 11/29/24 12:55 Oxygen Delivery Flow Rate 4 11/29/24 12:55 Pulse Rate 64 11/29/24 12:55 Respiratory Rate 16 11/29/24 12:55 Blood Pressure 106/65 11/29/24 12:55 Pulse Oximetry 90 L 11/29/24 12:55 Oxygen Delivery Method Nasal Cannula 11/29/24 12:55 Oxygen Delivery Flow Rate 4 11/29/24 12:55 Medical Decision Making [facility] Narrative Medical decision making narrative: The patient had received her insulin this morning but had not eaten. Her blood sugar was 53. Paramedics checked and she was 90 and then she was 67 here subsequently. She was given D50 and then given a meal. The rest of her workup is negative. No evidence of UTI. Family states that she is at her baseline. She gets confused from time to time and nobody can figure out why. She is able to be released back to [facility] after eating her meal Differential Diagnosis Differential Diagnosis: Hyperglycemia, dehydration, anemia, UTI Lab Data Lab results reviewed: Yes I reviewed the patient's lab results Labs: Lab Results 11/29/24 11/29/24 11/29/24 Range/Units 13:03 13:10 13:15 WBC 10.0 (4.0-11.0) 10^3/uL RBC 3.24 L (4.20-5.40) 10^6/uL Hgb 8.6 L (12.0-16.0) g/dL Hct 28.9 L (36.0-48.0) % MCV 89.2 (81.0-99.0) fL MCH 26.5 L (26.7-34.0) pg MCHC 29.8 L (29.9-35.2) g/dL RDW 17.1 H (11.0-15.0) % Plt Count 170 (150-450) 10^3/uL MPV 10.5 (9.5-13.5) fL Neut % (Auto) 73.6 (43.0-75.0) % Lymph % (Auto) 9.6 L (20.5-60.0) % Cook % (Auto) 14.2 H (1.7-12.0) % Eos % (Auto) 1.7 (0.9-7.0) % Baso % (Auto) 0.6 (0.2-2.0) % Neut # (Auto) 7.3 H (1.4-6.5) 10^3/uL Lymph # (Auto) 1.0 L (1.2-3.8) 10^3/uL Cook # (Auto) 1.4 H (0.3-0.8) 10^3/uL Eos # (Auto) 0.2 (0.0-0.7) 10^3/uL Baso # (Auto) 0.1 (0.0-0.1) 10^3/uL Abs Immat Gran (auto) 0.03 (0.00-0.03) 10^3/uL Imm/Tot Granulo (auto) 0.3 (0.0-0.5) % Sodium 141 (136-145) mmol/L Potassium 3.6 (3.5-5.1) mmol/L Chloride 103 (98-107) mmol/L Carbon Dioxide 33.3 H (21.0-32.0) mmol/L Anion Gap 8.3 BUN 48.0 H (7.0-18.0) mg/dL Creatinine 1.64 H (0.55-1.02) mg/dL Est GFR ( Amer) 36 L (>=60 mL/min/1.73m^2) Est GFR (Non-Af Amer) 30 L (>=60 mL/min/1.73m^2) BUN/Creatinine Ratio 29.3 Glucose 67 L (74-106) mg/dL Calcium 8.7 (8.5-10.1) mg/dL Troponin I High Sens 55.9 H* (4.0-51.3) pg/mL Urine Color Lt. yellow (YELLOW) Urine Clarity Clear (CLEAR) Urine pH 6.0 (5.0-9.0) Ur Specific Baxter 1.010 (1.005-1.025) Urine Protein Negative (NEG/TRACE) mg/dL Urine Glucose (UA) Negative (NEGATIVE) mg/dL Urine Ketones Negative (NEGATIVE) mg/dL Urine Occult Blood Negative (NEGATIVE) Urine Nitrite Negative (NEGATIVE) Urine Bilirubin Negative (NEGATIVE) Urine Urobilinogen 0.2 (0.2-1.0) EU/dL Ur Leukocyte Esterase Negative (NEGATIVE) Urine RBC 0-2 (0-2) #/HPF Urine WBC 0-2 A (NONE SEEN) #/HPF Ur Squamous Epith Cells Rare (NONE/RARE) #/LPF Urine Crystals None seen (None Seen) #/HPF Urine Bacteria None seen (NONE SEEN) #/HPF Urine Casts None seen (NONE SEEN) #/LPF Urine Mucus None seen (NONE SEEN) Digoxin (0.9-2.0) ng/mL POC Glucose 69 L (74-106) mg/dL 11/29/24 11/29/24 11/29/24 Range/Units 13:32 14:09 14:26 WBC (4.0-11.0) 10^3/uL RBC (4.20-5.40) 10^6/uL Hgb (12.0-16.0) g/dL Hct (36.0-48.0) % MCV (81.0-99.0) fL MCH (26.7-34.0) pg MCHC (29.9-35.2) g/dL RDW (11.0-15.0) % Plt Count (150-450) 10^3/uL MPV (9.5-13.5) fL Neut % (Auto) (43.0-75.0) % Lymph % (Auto) (20.5-60.0) % Cook % (Auto) (1.7-12.0) % Eos % (Auto) (0.9-7.0) % Baso % (Auto) (0.2-2.0) % Neut # (Auto) (1.4-6.5) 10^3/uL Lymph # (Auto) (1.2-3.8) 10^3/uL Cook # (Auto) (0.3-0.8) 10^3/uL Eos # (Auto) (0.0-0.7) 10^3/uL Baso # (Auto) (0.0-0.1) 10^3/uL Abs Immat Gran (auto) (0.00-0.03) 10^3/uL Imm/Tot Granulo (auto) (0.0-0.5) % Sodium (136-145) mmol/L Potassium (3.5-5.1) mmol/L Chloride (98-107) mmol/L Carbon Dioxide (21.0-32.0) mmol/L Anion Gap BUN (7.0-18.0) mg/dL Creatinine (0.55-1.02) mg/dL Est GFR ( Amer) (>=60 mL/min/1.73m^2) Est GFR (Non-Af Amer) (>=60 mL/min/1.73m^2) BUN/Creatinine Ratio Glucose (74-106) mg/dL Calcium (8.5-10.1) mg/dL Troponin I High Sens 55.2 H* (4.0-51.3) pg/mL Urine Color (YELLOW) Urine Clarity (CLEAR) Urine pH (5.0-9.0) Ur Specific Baxter (1.005-1.025) Urine Protein (NEG/TRACE) mg/dL Urine Glucose (UA) (NEGATIVE) mg/dL Urine Ketones (NEGATIVE) mg/dL Urine Occult Blood (NEGATIVE) Urine Nitrite (NEGATIVE) Urine Bilirubin (NEGATIVE) Urine Urobilinogen (0.2-1.0) EU/dL Ur Leukocyte Esterase (NEGATIVE) Urine RBC (0-2) #/HPF Urine WBC (NONE SEEN) #/HPF Ur Squamous Epith Cells (NONE/RARE) #/LPF Urine Crystals (None Seen) #/HPF Urine Bacteria (NONE SEEN) #/HPF Urine Casts (NONE SEEN) #/LPF Urine Mucus (NONE SEEN) Digoxin 2.2 H* (0.9-2.0) ng/mL POC Glucose 209 H (74-106) mg/dL Imaging Data Chest x-ray: Radiologist's impression: ITS Impressions Chest X-Ray 11/29/24 13:01 IMPRESSION: Similar bilateral airspace opacities are noted, left greater than right with small bilateral pleural effusions. Similar cardiomegaly. Impression dictated by: Garry Rodriguez M.D. 11/29/2024 2:12 PM Dictation Location: [place] [address] Electronically authenticated by: [id number] Y Date: 11/29/2024 14:12 ECG Data Attestation: I personally reviewed and interpreted this ECG as follows: (EKG on my interpretation shows atrial fibrillation with a rate of 49) Discharge Plan Discharge Chief Complaint: Altered Mental Status Clinical Impression: Hypoglycemia Patient Disposition: Home, Self-Care Time of Disposition Decision: 15:54 Condition: Good Mode of Transportation: Private Vehicle Prescriptions / Home Meds: No Action carvedilol [Coreg] 12.5 mg tablet 12.5 mg PO BID Rx Instructions: must administer with a meal/food amitriptyline 25 mg tablet 25 mg PO .QHS Breztri Aerosphere 160-9-4.8 mcg/actuation HFA aerosol inhaler 2 inh INHALATION DAILY colchicine 0.6 mg tablet 0.6 mg PO DAILY alprazolam 0.25 mg tablet 0.25 mg PO .QHS PRN (Reason: anxiety) 2 Days Qty: 2 0RF gabapentin 100 mg capsule 100 mg PO TID 2 Days Qty: 6 0RF atorvastatin 20 mg tablet 20 mg PO QPM bupropion HCl 150 mg tablet sustained-release 12 hr 150 mg PO BID digoxin 125 mcg (0.125 mg) tablet 0.125 mg PO DAILY insulin lispro protamin-lispro 100 unit/mL (75-25) insulin pen 10 unit SUBCUT BID omeprazole 40 mg capsule,delayed release(DR/EC) 40 mg PO DAILY ropinirole 0.25 mg tablet 0.25 mg PO QPM torsemide 20 mg tablet 20 mg PO DAILY escitalopram oxalate 10 mg tablet 10 mg PO DAILY albuterol sulfate 2.5 mg /3 mL (0.083 %) solution for nebulization 2.5 mg inhalation Q6H PRN (Reason: shortness of breath or wheezing) Print Language: Kiswahili Instructions: Hypoglycemia in a Person with Diabetes (ED) Referrals: JHONATAN LUCIA [Primary Care Provider, Internal Medicine] - 1 week
--- OUTSIDE RECORDS SUMMARY | 2024-11-29 13:04 | XMS_ITS | Encounter Summary ---
Author Organization [facility] Address [address] [facility] [place] [address] Care Team Providers Care Transformation Specialist Name Role Phone Jasvir León MD Primary Care Provider [phone] Jasvir León MD Unavailable [phone] Leora Pollard RN Unavailable [phone] Encounter Details Date Type Department Care Team (Late st Contact Info) Description 05/24/2023 Abstract [facility] [address] [facility] 110 [place] [id number] Jasvir León MD 112 [facility] 110 [place] [address] Social History Tobacco Use Types Packs/Day Years [...] on filedocumented in this encounter Care Teams Transformation Specialist Relationship Specialty Start Date End Date Jasivr León MD [address] [address] [facility] 110 [place] [address] PCP - General Internal Medicine 11/20/22 Jasvir León MD [address] [facility] [address] [place] [address] PCP - ACO Reach 11/30/22 Leora Pollard, RN Registered Nurse Family Medicine 07/10/24 documented as of this encounter
--- OUTSIDE RECORDS SUMMARY | 2024-11-29 13:04 | XMS_ITS | Encounter Summary ---
Author Organization [facility] Address [address] [facility] [place] [address] Care Team Providers Care Border Machine Operator Name Role Phone Jasvir León MD Primary Care Provider [phone] Jasvir León MD Unavailable [phone] Leora Pollard RN Unavailable [phone] Encounter Details Date Type Department Care Team (Late st Contact Info) Description 06/07/2023 Abstract [facility] 112 [facility] 110 [place] [phone] Jasvir León MD 112 [facility] 110 [place] [address] Social History Tobacco Use Types Packs/Day Years [...] on filedocumented in this encounter Care Teams Border Machine Operator Relationship Specialty Start Date End Date Jasvir León MD [address] [facility] 110 [place] [address] PCP - General Internal Medicine 11/20/22 Jasvir León MD [address] [facility] 110 [place] [address] PCP - ACO Reach 11/30/22 Leora Pollard, RN Registered Nurse Family Medicine 07/10/24 documented as of this encounter
--- OUTSIDE RECORDS SUMMARY | 2024-11-29 13:04 | XMS_ITS | Encounter Summary ---
Author Organization [facility] Address [address] [facility] [place] [address] Care Team Providers Care Grants Director Name Role Phone Jasvir León MD Primary Care Provider [phone] Jasvir León MD Unavailable [phone] Leora Pollard RN Unavailable [phone] Encounter Details Date Type Department Care Team (Late st Contact Info) Description 07/24/2024 Abstract [facility] 112 [facility] 110 [place] [address] Jasvir León MD 112 [facility] 110 [place] [address] Social History Tobacco Use Types Packs/Day Years [...] any clubs o r organizations such as baptist groups, unions, fraternal or athletic groups, or [...] Recorded Patient Health Questionnaire-2 Score 0 04/11/2023 [facility] of Occupat ional Health - Occupational Stress [...] any time in the past 12 m [facility], were you homeless or living [...] on filedocumented in this encounter Care Teams Grants Director Relationship Specialty Start Date End Date Jasvir León MD [address] [facility] 110 [place] [address] PCP - General Internal Medicine 11/20/22 Jasvir León MD [address] [facility] [address] [place] [address] PCP - ACO Reach 11/30/22 Leora Pollard, [place] Registered Nurse Family Medicine 07/10/24 documented as of this encounter
--- OUTSIDE RECORDS SUMMARY | 2024-11-29 13:04 | XMS_ITS | Clinical Summary ---
Author Organization [facility] Address [address] [place] [address] Care Team Providers Care Lock Maintenance Supervisor Name Role Phone Jasvir León MD Primary Care Provider [phone] Allergies Active Allergy Reactions Criticality Noted Date Comments Codeine GI intolerance 03/11/2022 Sacubitril-Valsartan Other 06/07/2022 Penicillins Rash Low 06/26/2014 Medications Medication Sig Dispensed Refills Start Date End Date Status atorvastatin (Lipitor) 20 mg tablet Take 1 tablet by mouth at bedtime. Active buPROPion SR (Wellbutrin SR) 150 mg 12 hr tablet Take 1 tablet by mouth in the morning and at bedtime. Active escitalopram (Lexapro) 10 mg tablet Take 1 tablet by mouth in the morning. Active gabapentin (Neurontin) 100 mg capsule take 1 capsule by mouth three times a day Active insulin lispro protamin-lispro (HumaLOG Mix 75-25) 100 unit/mL (75-25) injection Inject 8 Units under the skin with breakfast and with evening meal. Take 8 units in morning and 8 units in evening. Active omeprazole (PriLOSEC) [address] capsule Take 1 capsule by mouth in the morning. Active rOPINIRole (Requip) 0.25 mg tablet TAKE 1 TABLET BY MOUTH ONE TO THREE HOURS BEFORE BEDTIME Active aspirin 81 mg EC tablet Take 81 mg by mouth in the morning. Active carvedilol (Coreg) 12.5 mg tabletIndications:Pe rmanent atrial fibrillation (CMS/HCC) Take 1 tablet (12.5 mg) by mouth with breakfast and with evening meal. 60 tablet 10/30/2022 Active digoxin (Lanoxin) 125 MCG tablet Take 125 mcg by mouth every other day. Active spironolactone (Aldactone) 25 mg tablet Take 12.5 mg by mouth in the morning. 11/18/2023 Active ALPRAZolam (Niravam) 0.25 mg disintegrating tablet Take 0.25 mg by mouth if needed in the morning, at noon, and at bedtime for anxiety. Active azithromycin (Zithromax) 500 mg tabletIndications:S/ P TAVR (transcatheter aortic valve replacement),S/P aortic valve replacement with bioprosthetic valve Take 1 tablet (500 mg) by mouth 1 (one) time if needed (30 - 60 minutes prior to dental procedure.) for up to 40 doses. 10 tablet 3 06/23/2024 Active torsemide (Demadex) 20 mg tabletIndications:Ch ronic diastolic heart failure (CMS/HCC),Pulmonary hypertension (CMS/HCC),Nonrheumat ic tricuspid valve regurgitation Take 3 tablets (60 mg) by mouth once daily in the morning. 270 tablet 3 07/25/2024 07/25/2025 Active dapagliflozin propanediol (Farxiga) 10 mgIndications:Chroni c diastolic heart failure (CMS/HCC) Take 1 tablet (10 mg) by mouth in the morning. 30 tablet 11 07/25/2024 07/25/2025 Active colchicine 0.6 mg tablet Take 0.6 mg by mouth if needed. 11/02/2023 11/01/2024 Active Problems Problem Noted Date Diagnosed Date Chronic hypoxic respiratory failure 08/20/2024 Mass of left lung 08/20/2024 Oxygen dependent 08/20/2024 Aortic stenosis, severe 06/10/2024 Neurogenic claudication 06/02/2024 Acute electrocardiogram changes 05/13/2024 Chest pain 05/13/2024 Fracture of rib of left side 05/13/2024 Nonrheumatic aortic valve stenosis 05/13/2024 Chronic right-sided heart failure 12/26/2023 Lumbar spondylosis 08/07/2023 Bilateral posterior capsular opacification 07/30 Dry eyes 07/30/2023 Lumbar radiculitis 05/29/2023 Pathological fracture of vertebra 05/09/2023 05/14/2023 Anxiety 03/15/2023 05/14/2023 Compression fracture of T12 vertebra 03/15/2023 05/14/2023 Unsteadiness on feet 11/21/2022 Primary osteoarthritis of right foot 11/21/2022 Inflammation of foot joint 11/21/2022 Generalized osteoarthritis 11/21/2022 Diabetic mononeuropathy 11/21/2022 Arthritis of ankle, right 11/21/2022 Pulmonary hypertension 10/30/2022 Assessment & Plan (12/07/2023 3:49 PM EDT): Repeat TTE in 6 months Pt denied any worsening symptoms since DC from [facility] and diuresis S/P aortic valve replacement with bioprosthetic valve 06/07/2022 Assessment & Plan (12/07/2023 1:07 PM EDT): Continue to monitor AO valve with repeat TTE in 6 months Assessment & Plan (06/07/2022 4:12 PM EST): Continue all medications including lasix, coreg Pneumonia due to COVID-19 virus 06/07/2022 Overview (06/07/2022): 04/2022 Assessment & Plan (06/07/2022 4:13 PM EST): Recent hospitalization for PNA s/p Covid with noted A fib with RVR Recovering quite well. F/u with PCP Anemia 02/22/2022 Diastolic heart failure 02/22/2022 Dyspnea 02/22/2022 Hyperlipemia 02/22/2022 Assessment & Plan (06/07/2022 4:04 PM EST): Continue statin Mitral and aortic incompetence 02/22/2022 Abnormal gait 08/15/2021 Subclinical iodine-deficiency hypothyroidism 12/2020 Nontoxic single thyroid nodule 04/13/2021 Controlled diabetes mellitus type II without com plication 11/22/2020 Acute on chronic systolic heart failure 10/15/19 21 Assessment & Plan (12/07/2023 3:54 PM EDT): Recently admitted overnight at [facility] for Acute HFrEF and palpitations [...] function and electrolytes and she voiced understanding. [facility] II-III Pt is close to euvolemia via assessment today Assessment & Plan (06/07/2022 4:09 PM EST): [facility] II- currently euvolemic, without exacerbation She appears to have recovered from Covid pneumonia quite well. PCP stopped entresto r/t itching/allergy and resumed lisinopril, continue lasix, digoxin, coreg, liptor and ASA EF recovered to 55% on FARA 12/20/21 Continue daily weights, fluid restriction 1.5-2L/day, low sodium diet. Diabetic renal disease 05/12/2020 Type 2 diabetes mellitus with peripheral angiopa thy 05/12/2020 Peripheral angiopathy due to type 2 diabetes teo litus 05/12/2020 05/14/2023 Abnormal laboratory test result 04/15/2020 Muscle weakness 04/14/2020 Obesity 04/14/2020 Stage 3a chronic kidney disease 04/14/2020 Acquired hypothyroidism 12/09/2018 Atrial fibrillation with rapid ventricular respo nse 08/16/2018 Assessment & Plan (06/07/2022 4:14 PM EST): [id number]= 6- age, HF, PVD, female, HTN Continue ASA, coreg, digoxin Rate well controlled Per Dr Nova last note: Not on anticoagulation due to prior bleeding with Coumadin. Her recent FARA showed that the left atrial appendage has a residual stump post surgical exclusion. I recommended aspirin 81 mg daily. They know that there is increased risk of stroke off of anticoagulation therapy. 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 controller current use of anticoagulant therapy 0 12/20/2017 Drug level above therapeutic range 12/20/2017 Osteopenia 10/01/2017 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 History of iron deficiency 04/04/2017 Drug-induced constipation 09/26/2016 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 Aortic valve disorder 04/20/2016 Overview (06/07/2022): aortic valve replacement with a 23 mm trifecta tissue valve: 2016 Assessment & Plan (12/07/2023 3:51 PM EDT): aortic valve replacement with a 23 mm trifecta tissue valve: 2016 Elevated doppler flows noted and severe AO stenosis- will repeat TTE a 6 months to re-evalaute. RTC with Dr Nova D/W pt about red flag symptoms to call 911 and/or office- increased SOB, Palpitations, syncope, chest pain or any concerns and she voiced understanding Continue all medications as prescribed Assessment & Plan (06/07/2022 4:11 PM EST): No concerning symptoms currently Will continue to monitor Recent FARA December showed high doppler flows Allergic rhinitis due to pollen 05/31/2015 Asthma 05/31/2015 Diverticulosis of colon 05/31/2015 Obstructive sleep apnea syndrome 05/31/2015 Osteoarthritis of knee 05/31/2015 Peripheral vascular disease 05/31/2015 Restless legs syndrome 05/31/2015 Rheumatic mitral valve disease 05/31/2015 Assessment & Plan (12/07/2023 3:49 PM EDT): Stable, will monitor with routine echocardiogram in 6 months Urinary incontinence 05/31/2015 Esophageal reflux 05/31/2015 Benign essential hypertension 05/31/2015 Spinal stenosis of lumbar region 05/10/2015 Atrial flutter 05/10/2015 Resolved Problems Problem Noted Date Diagnosed Date Resolved Date Aortic valve stenosis 02/22/20222021 Overview (06/07/2022): aortic valve replacement with a 23 mm trifecta tissue valve: 2016 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 02/22/2022 06/07/2022 Assessment & Plan (06/07/2022 4:07 PM EST): Hypertension is currently well controlled at home, elevated today in office Typically b/p is well controlled- will continue to monitor Encounters Date Type Department Care Team Description 09/22/2024 11:30 AM EDT Office Visit [facility] [address] [facility] [place] [address] Perez Nova MD S/P TAVR (transcatheter aortic valve replacement) (Primary Dx); S/P aortic valve replacement with bioprosthetic valve; Chronic diastolic heart failure (CMS/HCC); Permanent atrial fibrillation (CMS/HCC); Nonrheumatic mitral (valve) stenosis; Pulmonary hypertension (CMS/HCC); Status post ligation of left atrial appendage; Nonrheumatic tricuspid valve regurgitation; Stage 3a chronic kidney disease (CMS/HCC) 09/02/2024 Telephone [facility] [address] [facility] [place] [address] Eleni Velasco MA from Last 3 Months Immunizations Name Administration Dates Next Due Influenza, High Dose Seasona l, Preservative Free 04/29/2021,04/22/2018,03/29/2017 Influenza, High-dose Seasona l, Quadrivalent, Preservative Free 04/22/2018,03/29/2017 Influenza, Seasonal, Quadriv alent, Adjuvanted 04/29/2021 Influenza, injectable, quadrivalent 03/30/2016 Influenza, injectable, quadr ivalent, preservative free 03/22/2020,03/21/2020,03/30/2016 Influenza, seasonal,quadriva lent, preservative free 03/25/2015,04/02/2014 Influenza, trivalent, adjuvanted 03/20/2019 Pneumococcal Conjugate PCV 13 08/26/2016 Pneumococcal Polysaccharide PPV23 03/25/2015, Unspecified Sars-Cov-2 Vaccination 05/16/2021,,07/31/2020 Zoster, Recombinant 06/12/2019,03/20/2019 Zoster, live 03/25/2012 Family History Medical History Relation Name Comments Diabetes Father Heart failure Father neoplastic disease Other Relation Name Status Comments Father Other Social History Tobacco Use Types Packs/Day Years Used Date Smoking Tobacco: Former Cigarettes Smokeless Tobacco: Never Tobacco Cessation:Counseling Given: Not Answered Alcohol Use Standard Drinks/Week Comments Not Currently 0 (1 standard drink = 0.6 oz pur e alcohol) [facility] Utilities Answer Date Recorded In the past 12 months has th e electric, gas, oil, or water company threatened to shut off services in your home? No 06/10/2024 Humiliation, Afraid, Rape, and Kick questionnair e Answer Date Recorded Within the last year, have y ou been afraid of your partner or ex-partner? No 06/10/2024 Emotionally Abused Not on file 06/10/2024 Physically Abused Not on file 06/10/2024 Sexually Abused Not on file 06/10/2024 Overall Financial Resource Strain (CARDIA) Answe r Date Recorded How hard is it for you to pa y for the very basics like food, housing, medical care, and heating? Not hard at all 06/10/2024 Transportation Answer Date Recorded In the past 12 months, has l ack of transportation kept you from medical appointments or from getting medications? No 06/10/2024 Lack of Transportation (Non-Medical) Not on file 06/10/2024 Housing Stability Vital Sign Answer Duane e Recorded In the last 12 months, was t here a time when you were not able to pay the mortgage or rent on time? No 06/10/2024 Number of Times Moved in the Last Year Not on fi le 06/10/2024 At any time in the past 12 m [facility], were you homeless or living in a [facility] (including now)? No 06/10/2024 Hunger Vital Sign Answer Date Recorded Within the past 12 months, y ou worried that your food would run out before you got the money to buy more. Never true 06/10/20 24 Ran Out of Food in the Last Year Not on file 06/10/2024 Sex and Gender Information Value Date Recorded Sex Assigned at Female 05/27/2024 6:52 AM EST Gender Identity Female 05/27/2024 6:52 AM EST Sexual Orientation Don't know 05/27/2024 6: 52 AM EST Last Filed Vital Signs Vital Sign Reading Time Taken Comments Blood Pressure 124/72 09/22/2024 12:27 PM EDT Pulse 66 09/22/2024 12:27 PM EDT Temperature 36.3 C (97.3 F) 06/10/2024 8:00 PM EST Respiratory Rate 17 06/11/2024 1:00 PM EST Oxygen Saturation 94% 09/22/2024 12:27 PM EDT on 2L O2 Inhaled Oxygen Concentration - - Weight 60.3 kg (133 lb) 09/22/2024 12:27 PM EDT Height 157.5 cm (5' 2 ) 09/22/2024 12:27 PM EDT Body Mass Index 24.33 09/22/2024 12:27 PM EDT Plan of Treatment Health Maintenance Due Date Last Done Comments Medicare Annual Wellness (AWV) 1940 Diabetes: Retinopathy Screening 1949 Depression Screening 1952 Diabetes: Hemoglobin A1C 11/13/2018 08/16/2018 COVID-19 Vaccine ( season) 2024 05/21/2023, 05/21/2023, 05/16/2021, Additional history exists Adult Tetanus 03/31/2024 03/31/2014, 09/01/2013 Fall Risk Screening 06/11/2025 06/11/2024 Zoster Vaccines Completed 09/11/2023, 05/10, 06/12/2019, Additional history exists Influenza Vaccine Completed 04/12/2024, , 04/29/2021, Additional history exists Pneumococcal Vaccine: 65+ Years Completed 04/12/2024, 08/26/2016, 03/25/2015, Additional history exists HIB Vaccines Aged Out No longer eligi ble based on patient's age to complete this topic HPV Vaccines Aged Out No longer eligi ble based on patient's age to complete this topic IPV Vaccines Aged Out No longer eligi ble based on patient's age to complete this topic Meningococcal B Vaccine Aged Out No l onger eligible based on patient's age to complete this topic Meningococcal Vaccine Aged Out No yesica cm eligible based on patient's age to complete this topic Rotavirus Vaccines Aged Out No longer eligible based on patient's age to complete this topic Medical Devices Implanted Type Area Applications Instructor Device Identifier Shelf Expiration Date Model / Serial / Lot Valve,Heart,T ranscatheter, 23mm - [id number] - [id number] Implanted:Qty : 1 on 06/10/2024 by Perez Nova MD at [facility] Prosthetic Valve [employer] [id number] 06/12/2026 [id number] / [id number] / Procedures Procedure Name Priority Date/Time Associated Diagnosis Comments HEMOGLOBIN A1C Routine 08/16/2018 9:01 PM EST from Last 3 Months or Most Recently Relevant to Health Maintenance Results * Hemoglobin A1C (08/16/2018 9:01 PM EST) Hemoglobin A1C 5.9 4.0 - 6.0 % LAB CONVERSIONS Estimated Average Glucose 123 70 - 126 mg/dL LAB CONVERSIONS 08/16/2018 9:01 PM EST 08/16/2018 9:40 PM EST Narrative LAB CONVERSIONS - 08/17/2018 1:29 PM EST No: Do not add to previous draw Thong Garcia MD LAB BL OOD ORDERABLES LAB CONVERSIONS from Last 3 Months or Most Recently Relevant to Health Maintenance Advance Directives * Full Code (Latest Code Status on File) Date Activated Date Inactivated Comments 06/10/2024 4:57 PM 06/11/2024 3:37 PM Care Teams Lock Maintenance Supervisor Relationship Specialty Start Date End Date Jasvir León MD [address] [place] [address] PCP - General 02/26/22
--- OUTSIDE RECORDS SUMMARY | 2024-11-29 13:04 | XMS_ITS | Encounter Summary ---
Author Organization [facility] Address [address] [facility] [place] [address] Care Team Providers Care Staff Technologist Name Role Phone Jasvir León MD Primary Care Provider [phone] Jasvir León MD Unavailable [phone] Leora Pollard RN Unavailable [phone] Encounter Details Date Type Department Care Team (Late st Contact Info) Description 08/05/2024 Abstract [facility] 112 [facility] 110 [place] [address] Jasvir León MD 112 [facility] 110 [place] [address] Social History Tobacco Use Types Packs/Day Years [...] How often do you attend chur or hindu services? 1 to 4 times per year 07/10/2024 Do you belong to any clubs o r organizations such as evangelical groups, unions, fraternal or athletic groups, or [...] Recorded Patient Health Questionnaire-2 Score 0 04/11/2023 [facility] [place] of Occupat ional Health - Occupational Stress [...] any time in the past 12 m [facility], were you homeless or living in a [...] on filedocumented in this encounter Care Teams Staff Technologist Relationship Specialty Start Date End Date Jasvir León MD [address] [facility] [address] [place] [address] PCP - General Internal Medicine 11/20/22 Jasvir León MD [address] [place] [address] PCP - ACO Reach 11/30/22 Leora Pollard, [place] Registered Nurse Family Medicine 07/10/24 documented as of this encounter
--- OUTSIDE RECORDS SUMMARY | 2024-11-29 13:04 | XMS_ITS | Encounter Summary ---
Author Organization [facility] Address [address] [facility] [place] [address] Care Team Providers Care Clinical Supervisor Name Role Phone Jasvir León MD Primary Care Provider [phone] Jasvir León MD Unavailable [phone] Leora Pollard RN Unavailable [phone] Encounter Details Date Type Department Care Team (Late st Contact Info) Description 05/29/2023 Abstract [facility] 112 [facility] [address] [place] [address] Jasvir León MD 112 [facility] 110 [place] [address] Social History Tobacco Use Types Packs/Day Years [...] on filedocumented in this encounter Care Teams Clinical Supervisor Relationship Specialty Start Date End Date Jasvir León MD [address] [facility] 110 [place] [address] PCP - General Internal Medicine 11/20/22 Jasvir León MD [address] [facility] [address] [place] [address] PCP - ACO Reach 11/30/22 Leora Pollard, RN Registered Nurse Family Medicine 07/10/24 documented as of this encounter
--- OUTSIDE RECORDS SUMMARY | 2024-11-29 13:04 | XMS_ITS | Encounter Summary ---
Author Organization [facility] Address [address] [facility] [place] [address] Care Team Providers Care Vortex Operator Name Role Phone Jasvir León MD Primary Care Provider [phone] Jasvir León MD Unavailable [phone] Leora Pollard RN Unavailable [phone] Encounter Details Date Type Department Care Team (Late st Contact Info) Description 05/25/2023 Abstract [facility] 112 [facility] 110 [place] [address] Jasvir León MD 112 [facility] 110 [place] [address] Social History Tobacco Use Types Packs/Day Years [...] on filedocumented in this encounter Care Teams Vortex Operator Relationship Specialty Start Date End Date Jasvir León MD [address] [facility] [address] [place] [address] PCP - General Internal Medicine 11/20/22 Jasvir León MD [address] [facility] [address] [place] [address] PCP - ACO Reach 11/30/22 Leora Pollard, RN Registered Nurse Family Medicine 07/10/24 documented as of this encounter
--- OUTSIDE RECORDS SUMMARY | 2024-11-29 13:04 | XMS_ITS | Encounter Summary ---
Author Organization [facility] Address [address] [facility] [place] [address] Care Team Providers Care Clinical Admissions Manager Name Role Phone Jasvir León MD Primary Care Provider [phone] Jasvir León MD Unavailable Leora Pollard RN Unavailable [phone] Encounter Details Date Type Department Care Team (Late st Contact Info) Description 07/16/2024 Abstract [facility] 112 [facility] 110 [place] [address] Jasvir León MD 112 [facility] 110 [place] [address] Social History Tobacco Use Types Packs/Day Years [...] How often do you attend chur or zoroastrianism services? 1 to 4 times per year 07/10/2024 Do you belong to any clubs o r organizations such as latter-day groups, unions, fraternal or athletic groups, or [...] Recorded Patient Health Questionnaire-2 Score 0 04/11/2023 [facility] [place] of Occupat ional Health - Occupational Stress [...] time in the past 12 m [facility], were you homeless or living in [...] filedocumented in this encounter Care Teams Clinical Admissions Manager Relationship Specialty Start Date End Date Jasvir León MD [address] [facility] [address] [place] [address] PCP - General Internal Medicine 11/20/22 Jasvir León MD [address] [facility] [address] [place] [address] PCP - ACO Reach 11/30/22 Leora Pollard, [place] Registered Nurse Family Medicine 07/10/24 documented as of this encounter
--- OUTSIDE RECORDS SUMMARY | 2024-11-29 13:04 | XMS_ITS | Encounter Summary ---
Author Organization [facility] Address [address] [facility] [place] [address] Care Team Providers Care Electrologist Name Role Phone Jasvir León MD Primary Care Provider [phone] Jasvir León MD Unavailable [phone] Leora Pollard RN Unavailable [phone] Encounter Details Date Type Department Care Team (Late st Contact Info) Description 06/21/2023 Orders Only [facility] [address] [place] [address] [place] [address] A, Unknown Practice [address] [place] [id number] Social History Tobacco Use Types Packs/Day [...] Name Priority Date/Time Associated Diagnosis Comments XR FOOT 3+ VIEWS LEFT Routine 06/20/2023 8:07 AM EST documented in this encounter Results * XR foot 3+ views left (06/20/2023 8:07 AM EST) Anatomical Region Laterality Modality Lower Extremities, Foot Left Radiogra phic Imaging us Unknown Practice A IMG XR PROCEDURES Final Resul t documented in this encounter Visit Diagnoses Not on filedocumented in this encounter Care Teams Electrologist Relationship Specialty Start Date End Date Jasvir León MD [address] [facility] 110 [place] [address] PCP - General Internal Medicine 11/20/22 Jasvir León MD [address] [facility] 110 [place] [address] PCP - ACO Reach 11/30/22 Leora Pollard, RN Registered Nurse Family Medicine 07/10/24 documented as of this encounter
--- OUTSIDE RECORDS SUMMARY | 2024-11-29 13:04 | XMS_ITS | Referral Summary ---
Author Organization [facility] Address [address] [place] [address] Care Team Providers Care Wheel Polisher Name Role Phone Jasvir León MD Primary Care Provider [phone] Encounters Date Type Department Care Team Description 09/22/2024 11:30 AM EDT Office Visit [place] [address] [place] [address] Perez Nova MD S/P TAVR (transcatheter aortic valve replacement) (Primary Dx); S/P aortic valve replacement with bioprosthetic valve; Chronic diastolic heart failure (CMS/HCC); Permanent atrial fibrillation (CMS/HCC); Nonrheumatic mitral (valve) stenosis; Pulmonary hypertension (CMS/HCC); Status post ligation of left atrial appendage; Nonrheumatic tricuspid valve regurgitation; Stage 3a chronic kidney disease (CMS/HCC) 09/02/[address] 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 She appears [...] Assessment & Plan (06/07/2022 4:14 PM EST): [id number]= 6- age, HF, PVD, female, HTN Continue [...] osteoarthrosis of ankle and fo ot 03/14/2018 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 0 12/20/2017 Drug level above therapeutic range 12/20/2017 Osteopenia 10/01/2017 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 History of iron deficiency 04/04/2017 Drug-induced constipation 09/26/2016 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 Aortic valve disorder 04/20/2016 Overview (06/07/2022): aortic valve replacement with a 23 mm trifecta tissue valve: 2015 Assessment & Plan (12/07/2023 3:51 PM EDT): [...] is well controlled- will continue to monitor Immunizations Name Administration Dates Next Due Influenza, [...] 05/16/2021,,07/31/2020 Zoster, Recombinant 06/12/2019,03/20/2019 Zoster, live 03/25/2012 Social History Tobacco Use Types Packs/Day Years Used Date Smoking Tobacco: Former Cigarettes Smokeless Tobacco: Never Tobacco Cessation:Counseling Given: Not Answered Alcohol Use Standard Drinks/Week Comments Not Currently 0 (1 standard drink = 0.6 oz pur e alcohol) [facility] Utilities Answer Date Recorded In the [...] any time in the past 12 m [facility], were you homeless or living in [...] 09/22/2024 12:27 PM EDT Plan of Treatment Not on file Medical Devices Implanted Type Area Facility Maintenance Manager Device Identifier Shelf Expiration Date Model / Serial / Lot Valve,Heart,T ranscatheter, 23mm - [id number] - [id number] Implanted:Qty : 1 on 06/10/2024 by Perez Nova MD at [facility] Prosthetic Valve DONOVAN [employer] [id number] 06/12/2026 [id number] / [id number] / Procedures Procedure Name Priority Date/Time Associated [...] 4:57 PM 06/11/2024 3:37 PM Care Teams Wheel Polisher Relationship Specialty Start Date End Date Jasvir León MD [address] [facility] [address] [place] [address] PCP - General 02/26/22
--- OUTSIDE RECORDS SUMMARY | 2024-11-29 13:04 | XMS_ITS ---
Author Organization [facility] Address [address] [place] [address] Care Team Providers Care Assistant Professor Of Psychology Name Role Phone Jasvir León MD Primary Care Provider [phone] Jasvir León MD Unavailable [phone] Leora Pollard RN Unavailable [phone] Custodial Facility Transitional Care Management Status:Enrolled (Active) Start date:11/15/2024 Enrollment date:11/18/2024 Enrollment reason:Identified using hospital discharge data Overview Patient discharged from [facility] on 11/15. Patient admitted to [facility]. Please contact SNF facility for ANGELES (inpt to SNF) within 48 hours. Case Team Name Relationship Phone Monica Ross LPN(Responsible Staff) Licensed Pr actical Nurse [phone] Continued Care and Services Coordination
--- OUTSIDE RECORDS SUMMARY | 2024-11-29 13:04 | XMS_ITS | Encounter Summary ---
Author Organization [facility] Address [address] [facility] [place] [address] Care Team Providers Care Business Intern Name Role Phone Jasvir León MD Primary Care Provider [phone] Jasvir León MD Unavailable [phone] Leora Pollard RN Unavailable [phone] Encounter Details Date Type Department Care Team (Late st Contact Info) Description 07/07/2024 Abstract [facility] 112 [facility] 110 [place] [address] Jasvir León MD 112 [facility] 110 [place] [address] Social History Tobacco Use Types Packs/Day Years [...] How often do you attend chur or yazidi services? 1 to 4 times per year 07/10/2024 Do you belong to any clubs o r organizations such as scientologist groups, unions, fraternal or athletic groups, or [...] Patient Health Questionnaire-2 Score 0 04/11/2023 [facility] [place] of Occupat ional Health - Occupational Stress [...] any time in the past 12 m [facility], were you homeless or living in a detention (including now)? No 07/10/2024 Comments Unknown Sex and Gender Information Value Date Recorded Sex Assigned at Not on file Legal Sex Female 7:05 PM EDT Gender Identity Not on file Sexual Orientation Not on file documented as of this encounter Functional Status * Audit-C Score Answer Date of Assessment Author 0 07/10/2024 12:13 PM Leora Magallanes RN * Question Answer Date of Assessment Author Q1: How often do you have a drink containing alcohol? Never 07/10/2024 12:13 PM Kiki Garcia, [place] Q2: How many drinks containing alcohol do you have on a typical day when you are drinking? Patient does not drink 07/10/2024 12:13 PM Leora Garcia, [place] Q3: How often do you have six or more drinks on one occasion? Never 07/10/2024 12:13 PM Kiki Garcia, RN documented as of this encounter Plan of Treatment Not on file documented as of this encounter Visit Diagnoses Not on filedocumented in this encounter Care Teams Business Intern Relationship Specialty Start Date End Date Jasvir León MD [address] [facility] 110 [place] [address] PCP - General Internal Medicine 11/20/22 Jasvir León MD [address] [facility] 110 [place] [address] PCP - ACO Reach 11/30/22 Leora Pollard, RN Registered Nurse Family Medicine 07/10/24 documented as of this encounter
--- OUTSIDE RECORDS SUMMARY | 2024-11-29 13:04 | XMS_ITS | Encounter Summary ---
Author Organization [facility] Address [address] [facility] [place] [address] Care Team Providers Care Weave Room Supervisor Name Role Phone Jasvir León MD Primary Care Provider [phone] Jasvir León MD Unavailable [phone] eLora Pollard RN Unavailable [phone] Encounter Details Date Type Department Care Team (Late st Contact Info) Description 06/27/2023 Abstract [facility] 112 [facility] 110 [place] [address] Jasvir León MD [address] [facility] 110 [place] [address] Social History Tobacco Use Types Packs/Day Years [...] on filedocumented in this encounter Care Teams Weave Room Supervisor Relationship Specialty Start Date End Date Jasvir León MD [address] [facility] 110 [place] [address] PCP - General Internal Medicine 11/20/22 Jasvir León MD [address] [facility] [address] [place] [address] PCP - ACO Reach 11/30/22 Leora Pollard, RN Registered Nurse Family Medicine 07/10/24 documented as of this encounter
--- OUTSIDE RECORDS SUMMARY | 2024-11-29 13:04 | XMS_ITS | Encounter Summary ---
Author Organization [facility] Address [address] [facility] [place] [address] Care Team Providers Care Dried Yeast Supervisor Name Role Phone Jasvir León MD Primary Care Provider [phone] Jasvir León MD Unavailable [phone] Leora Pollard RN Unavailable [phone] Encounter Details Date Type Department Care Team (Late st Contact Info) Description 05/28/2023 Abstract [facility] 112 [facility] 110 [place] [address] Jasvir León MD 112 [facility] 110 [place] [address] Social History Tobacco Use Types Packs/Day Years [...] on filedocumented in this encounter Care Teams Dried Yeast Supervisor Relationship Specialty Start Date End Date Jasvir León MD [address] [facility] 110 [place] [address] PCP - General Internal Medicine 11/20/22 Jasvir León MD [address] [facility] [address] [place] [address] PCP - ACO Reach 11/30/22 Leora Pollard, RN Registered Nurse Family Medicine 07/10/24 documented as of this encounter
--- OUTSIDE RECORDS SUMMARY | 2024-11-29 13:04 | XMS_ITS | Encounter Summary ---
Author Organization [facility] Address [address] [facility] [place] [address] Care Team Providers Care Grooving Machine Operator Name Role Phone Jasvir León MD Primary Care Provider [phone] Jasvir León MD Unavailable [phone] Leora Pollard RN Unavailable [phone] Encounter Details Date Type Department Care Team (Late st Contact Info) Description 07/07/2024 Abstract [facility] 112 [facility] 110 [place] [address] Jasvir León MD 112 [facility] 110 [place] [address] Social History Tobacco Use Types Packs/Day Years [...] any clubs o r organizations such as temple groups, unions, fraternal or athletic groups, or [...] Recorded Patient Health Questionnaire-2 Score 0 04/11/2023 [facility] [place] of Occupat ional Health - Occupational Stress [...] any time in the past 12 m [facility], were you homeless or living in a skilled nursing (including now)? No 07/10/2024 Comments Unknown Sex [...] on filedocumented in this encounter Care Teams Grooving Machine Operator Relationship Specialty Start Date End Date Jasvir León MD [address] [facility] 110 [place] [address] PCP - General Internal Medicine 11/20/22 Jasvir León MD [address] [facility] 110 [place] [address] PCP - ACO Reach 11/30/22 Leora Pollard, RN Registered Nurse Family Medicine 07/10/24 documented as of this encounter
--- OUTSIDE RECORDS SUMMARY | 2024-11-29 13:04 | XMS_ITS | Encounter Summary ---
Author Organization [facility] Address [address] [place] [address] Phone Care Team Providers Care Acoustics Teacher Name Role Phone Unavailable Primary Care Provider Unavailabl e Encounter Details Date Type Department Care Team (Late st Contact Info) Description 04/25/2024 Scanned Document [facility] [address] [place] [id number] Scanning, Generic Provider Social History Tobacco Use Types Packs/Day Years [...] Procedure Name Priority Date/Time Associated Diagnosis Comments NUCLEAR STRESS TEST - ONBASE SCAN 04/25/2024 STRESS TEST - ONBASE SCAN 04/25/2024 ECHOCARDIOGRAM 04/25/2024 documented in this encounter Results * Nuclear Stress Test - Onbase Scan (04/25/2024) Narrative 04/25/2024 Ordered by an unspecified provider. us Generic Provider Scanning CV STRESS PROCEDURES F inal Result * Stress Test - Onbase Scan (04/25/2024) Narrative 04/25/2024 Ordered by an unspecified provider. us Generic Provider Scanning CV STRESS PROCEDURES F inal Result * Echocardiogram (04/25/2024) Narrative 04/25/2024 Ordered by an unspecified provider. us Generic Provider Scanning CV ECHO PROCEDURES Fin al Result documented in this encounter Visit Diagnoses Not on filedocumented in this encounter
--- OUTSIDE RECORDS SUMMARY | 2024-11-29 13:04 | XMS_ITS | Encounter Summary ---
Author Organization [facility] Address [address] [facility] [place] [address] Care Team Providers Care Slab Polisher Name Role Phone Jasvir León MD Primary Care Provider [phone] Jasvir León MD Unavailable [phone] Leora Pollard RN Unavailable [phone] Encounter Details Date Type Department Care Team (Late st Contact Info) Description 05/22/2023 Abstract [facility] [address] [facility] 110 [place] [address] Jasvir León MD 112 [facility] 110 [place] [address] Social History Tobacco Use Types Packs/Day Years [...] on filedocumented in this encounter Care Teams Slab Polisher Relationship Specialty Start Date End Date Jasvir León MD [address] [facility] 110 [place] [address] PCP - General Internal Medicine 11/20/22 Jasvir León MD [address] [facility] [address] [place] [address] PCP - ACO Reach 11/30/22 Leora Pollard, RN Registered Nurse Family Medicine 07/10/24 documented as of this encounter
--- OUTSIDE RECORDS SUMMARY | 2024-11-29 13:04 | XMS_ITS | Encounter Summary ---
Author Organization [facility] Address [address] [facility] [place] [address] Care Team Providers Care Dry Room Operator Name Role Phone Jasvir León MD Primary Care Provider [phone] Jasvir León MD Unavailable [phone] Leora Pollard RN Unavailable [phone] Encounter Details Date Type Department Care Team (Late st Contact Info) Description 07/16/2024 Abstract [facility] 112 [facility] 110 [place] [address] Jasvir León MD 112 [facility] 110 [place] [address] Social History Tobacco Use Types Packs/Day Years [...] How often do you attend chur or anabaptism services? 1 to 4 times per year 07/10/2024 Do you belong to any clubs o r organizations such as jewish groups, unions, fraternal or athletic groups, or [...] Recorded Patient Health Questionnaire-2 Score 0 04/11/2023 [facility] [place] of Occupat ional Health - Occupational Stress [...] any time in the past 12 m [facility], were you homeless or living in a [...] on filedocumented in this encounter Care Teams Dry Room Operator Relationship Specialty Start Date End Date Jasvir León MD [address] [facility] [address] [place] [address] PCP - General Internal Medicine 11/20/22 Jasvir León MD [address] [facility] [address] [place] [address] PCP - ACO Reach 11/30/22 Leora Pollard, [place] Registered Nurse Family Medicine 07/10/24 documented as of this encounter
--- OUTSIDE RECORDS SUMMARY | 2024-11-29 13:04 | XMS_ITS ---
Author Organization [facility] Address [address] [facility] [place] [address] Care Team Providers Care Patient Relations Specialist Name Role Phone Jasvir León MD Primary Care Provider [phone] Jasvir León MD Unavailable [phone] Leora Pollard RN Unavailable [phone] Chronic Care Management (CCM) Status:Enrolled (Active) Start date:07/10/2024 Enrollment date:07/10/2024 Overview Please assess for Care Management needs. 07/10/24, 12:42 PM - Leora Pollard RN- Patient gives verbal consent to be enrolled in CCM Program and understands there could be a bill for this service. CCM Bill No Case Team Name Relationship Phone Leora Pollard RN(Responsible Staff) [facility] Nurse [phone] Continued Care and Services Coordination
--- OUTSIDE RECORDS SUMMARY | 2024-11-29 13:04 | XMS_ITS | Encounter Summary ---
Author Organization [facility] Address [address] [facility] [place] [address] Care Team Providers Care Bicycle Repairer Name Role Phone Jasvir León MD Primary Care Provider [phone] Jasvir León MD Unavailable [phone] Leora Pollard RN Unavailable [phone] Encounter Details Date Type Department Care Team (Late st Contact Info) Description 07/14/2024 Abstract [facility] [address] [facility] 110 [place] [address] Jasvir León MD 112 [facility] 110 [place] [address] Social History Tobacco Use Types Packs/Day Years [...] How often do you attend chur or samaritan services? 1 to 4 times per year 07/10/2024 Do you belong to any clubs o r organizations such as buddhist groups, unions, fraternal or athletic groups, or [...] Recorded Patient Health Questionnaire-2 Score 0 04/11/2023 [facility] [place] of Occupat ional Health - Occupational Stress [...] any time in the past 12 m [facility], were you homeless or living [...] on filedocumented in this encounter Care Teams Bicycle Repairer Relationship Specialty Start Date End Date Jasvir León MD [address] [facility] [address] [place] [address] PCP - General Internal Medicine 11/20/22 Jasvir León MD [address] [facility] [address] [place] [address] PCP - ACO Reach 11/30/22 Leora Pollard, [place] Registered Nurse Family Medicine 07/10/24 documented as of this encounter
--- OUTSIDE RECORDS SUMMARY | 2024-11-29 13:04 | XMS_ITS | Encounter Summary ---
Author Organization [facility] Address [address] [facility] [place] [address] Care Team Providers Care Airport Utility Worker Name Role Phone Jasvir León MD Primary Care Provider [phone] Jasvir León MD Unavailable [phone] Leora Pollard RN Unavailable [phone] Encounter Details Date Type Department Care Team (Late st Contact Info) Description 06/21/2023 Abstract [facility] 112 [facility] 110 [place] [address] Jasvir León MD 112 [facility] 110 [place] [address] Social History Tobacco Use Types Packs/Day Years [...] on filedocumented in this encounter Care Teams Airport Utility Worker Relationship Specialty Start Date End Date Jasvir León MD [address] [facility] 110 [place] [address] PCP - General Internal Medicine 11/20/22 Jasvir León MD [address] [facility] 110 [place] [address] PCP - ACO Reach 11/30/22 Leora Pollard, RN Registered Nurse Family Medicine 07/10/24 documented as of this encounter
--- OUTSIDE RECORDS SUMMARY | 2024-11-29 13:04 | XMS_ITS | Encounter Summary ---
Author Organization [facility] Address [address] [facility] [place] [place] [address] Care Team Providers Care Can Conveyor Feeder Name Role Phone Jasvir León MD Primary Care Provider [phone] Jasvir León MD Unavailable [phone] Leora Pollard RN Unavailable [phone] Encounter Details Date Type Department Care Team (Late st Contact Info) Description 08/18/2024 Abstract [facility] 112 [facility] 110 [place] [address] Jasvir León MD 112 [facility] 110 [place] [address] Social History Tobacco Use Types Packs/Day Years [...] How often do you attend chur or roman catholic services? 1 to 4 times per [...] Recorded Patient Health Questionnaire-2 Score 0 04/11/2023 [facility] [place] of Occupat ional Health - Occupational Stress [...] any time in the past 12 m [facility], were you homeless or living [...] on filedocumented in this encounter Care Teams Can Conveyor Feeder Relationship Specialty Start Date End Date Jasvir León MD [address] [facility] 110 [place] [address] PCP - General Internal Medicine 11/20/22 Jasvir León MD [address] [facility] [address] [place] [address] PCP - ACO Reach 11/30/22 Leora Pollard, [place] Registered Nurse Family Medicine 07/10/24 documented as of this encounter
--- OUTSIDE RECORDS SUMMARY | 2024-11-29 13:04 | XMS_ITS | Encounter Summary ---
Author Organization [facility] Address [address] [facility] [place] [address] Care Team Providers Care Rn Lvn Name Role Phone Jasvir León MD Primary Care Provider [phone] Jasvir León MD Unavailable [phone] Leora Pollard RN Unavailable [phone] Encounter Details Date Type Department Care Team (Late st Contact Info) Description 05/14/2023 Abstract [facility] 112 [facility] 110 [place] [address] Jasvir León MD 112 [facility] 110 [place] [address] Social History Tobacco Use Types Packs/Day Years [...] filedocumented in this encounter Care Teams Rn Lvn Relationship Specialty Start Date End Date Jasvir León MD [address] [facility] 110 [place] [address] PCP - General Internal Medicine 11/20/22 Jasvir León MD [address] [facility] [address] [place] [address] PCP - ACO Reach 11/30/22 Leora Pollard, RN Registered Nurse Family Medicine 07/10/24 documented as of this encounter
--- OUTSIDE RECORDS SUMMARY | 2024-11-29 13:04 | XMS_ITS | Encounter Summary ---
Author Organization [facility] Address [address] [facility] [place] [address] Care Team Providers Care Retort Loader Name Role Phone Jasvir León MD Primary Care Provider [phone] Jasvir León MD Unavailable [phone] Leora Pollard RN Unavailable [phone] Encounter Details Date Type Department Care Team (Late st Contact Info) Description 08/27/2024 Abstract [facility] [address] [facility] 110 [place] [address] Jasvir León MD 112 [facility] 110 [place] [address] Social History Tobacco Use Types Packs/Day Years [...] Recorded Patient Health Questionnaire-2 Score 0 04/11/2023 [facility] [place] of Occupat ional Health - Occupational Stress [...] were you homeless or living in a half-way (including now)? No 07/10/2024 Comments Unknown Sex and Gender Information Value Date Recorded Sex Assigned at Not on file Legal Sex Female 7:05 PM EDT Gender Identity Not on file Sexual Orientation Not on file documented as of this encounter Plan of Treatment Not on file documented as of this encounter Visit Diagnoses Not on filedocumented in this encounter Care Teams Retort Loader Relationship Specialty Start Date End Date Jasvir León MD [address] [facility] [address] [place] [address] PCP - General Internal Medicine 11/20/22 Jasvir León MD [address] [facility] [address] [place] [address] PCP - ACO Reach 11/30/22 Leora Pollard, [place] Registered Nurse Family Medicine 07/10/24 documented as of this encounter
--- OUTSIDE RECORDS SUMMARY | 2024-11-29 13:04 | XMS_ITS | Encounter Summary ---
Author Organization [facility] Address [address] [facility] [place] [address] Care Team Providers Care Wedding Decorator Name Role Phone Jasvir León MD Primary Care Provider [phone] Jasvir León MD Unavailable [phone] Leora Pollard RN Unavailable [phone] Encounter Details Date Type Department Care Team (Late st Contact Info) Description 07/28/2024 Abstract [facility] [address] [place] [address] Jasvir León MD 112 [facility] 110 [place] [address] Social History Tobacco Use Types Packs/Day Years [...] How often do you attend chur or cheondoism services? 1 to 4 times per year 07/10/2024 Do you belong to any clubs o r organizations such as gnosticist groups, unions, fraternal or athletic groups, or [...] Recorded Patient Health Questionnaire-2 Score 0 04/11/2023 [facility] [place] of Occupat ional Health - Occupational Stress [...] in the past 12 m [facility], were you homeless or living in a snf (including now)? No 07/10/2024 Comments Unknown Sex and Gender Information Value Date Recorded Sex Assigned at Not on file Legal Sex Female 7:05 PM EDT Gender Identity Not on file Sexual Orientation Not on file documented as of this encounter Plan of Treatment Not on file documented as of this encounter Visit Diagnoses Not on filedocumented in this encounter Care Teams Wedding Decorator Relationship Specialty Start Date End Date Jasvir León MD [address] [facility] [address] [place] [address] PCP - General Internal Medicine 11/20/22 Jasvir León MD [address] [facility] [address] [place] [address] PCP - ACO Reach 11/30/22 Leora Pollard, KNIG Registered Nurse Family Medicine 07/10/24 documented as of this encounter
--- OUTSIDE RECORDS SUMMARY | 2024-11-29 13:04 | XMS_ITS | Encounter Summary ---
Author Organization [facility] Address [address] [facility] [place] [address] Care Team Providers Care Adjunct Psychology Faculty Member Name Role Phone Jasvir León MD Primary Care Provider [phone] Jasvir León MD Unavailable [phone] Leora Pollard RN Unavailable [phone] Encounter Details Date Type Department Care Team (Late st Contact Info) Description 07/10/2024 Abstract [facility] 112 [facility] 110 [place] [address] Jasvir León MD 112 [facility] 110 [place] [address] Social History Tobacco Use Types Packs/Day Years [...] How often do you attend chur or gnosticist services? 1 to 4 times per year 07/10/2024 Do you belong to any clubs o r organizations such as samaritan groups, unions, fraternal or athletic groups, or [...] Recorded Patient Health Questionnaire-2 Score 0 04/11/2023 [facility] of Occupat ional Health - Occupational Stress [...] on filedocumented in this encounter Care Teams Adjunct Psychology Faculty Member Relationship Specialty Start Date End Date Jasvir León MD [address] [facility] [address] [place] [address] PCP - General Internal Medicine 11/20/22 Jasvir León MD [address] [facility] [address] [place] [address] PCP - ACO Reach 11/30/22 Leora Pollard, RN Registered Nurse Family Medicine 07/10/24 documented as of this encounter
--- OUTSIDE RECORDS SUMMARY | 2024-11-29 13:05 | XMS_ITS | Clinical Summary ---
[facility] Address [address] [place] [address] Care Team Providers Care Finished Cloth Examiner Name Role Phone Jasvir León MD Primary Care Provider [phone] Allergies Active Allergy Reactions Criticality Noted Date Comments Codeine Other (See Comments) Medium 05/08/2023 Stomach pain Penicillins Rash Low 05/08/2023 Sacubitril-Valsartan Rash Low 06/07/2022 Medications lisinopril (PRINIVIL;ZESTR IL) 20 MG tablet Take 1 tablet by mouth daily Active amLODIPine (NORVASC) 5 MG tablet Take 1 tablet by mouth daily Active HYDROcodone-sudeep taminophen (NORCO) 5-325 MG per tabletIndicatio ns:Pain Take 1 tablet by mouth every 6 hours as needed for Pain. Indications: Pain Active tiZANidine (ZANAFLEX) 4 MG tabletIndicatio ns:Pain Take 1 tablet by mouth every 4 hours as needed Indications: Pain Active acetaminophen (TYLENOL) 325 MG tablet Take 2 tablets by mouth every 6 hours as needed for Pain Active ALPRAZolam (XANAX) 0.25 MG tablet Take 1 tablet by mouth every 6 hours as needed for Anxiety. Active buPROPion (WELLBUTRIN SR) 150 MG extended release tablet Take 1 tablet by mouth 2 times daily Active CALCIUM CARB-CHOLECALCI FEROL PO Take 600 mg by mouth daily 600-200 mg-unit Active carvedilol (COREG) 12.5 MG tablet Take 1 tablet by mouth 2 times daily (with meals) Active digoxin (LANOXIN) 125 MCG tablet Take 1 tablet by mouth daily Active escitalopram (LEXAPRO) 10 MG tablet Take 1 tablet by mouth daily Active gabapentin (NEURONTIN) 100 MG capsule Take 1 capsule by mouth 3 times daily. Active Glucose Blood (BLOOD GLUCOSE TEST STRIPS 333 ) by In Vitro route Active insulin lispro protamine & lispro (HUMALOG MIX 75/25) (75-25) 100 UNIT per ML SUSP injection vial Inject 10 Units into the skin 2 times daily (with meals) Morning and evening with meals Active levothyroxine (SYNTHROID) 50 MCG tablet Take 1 tablet by mouth Daily Active omeprazole (PRILOSEC) 40 MG delayed release capsule Take 1 capsule by mouth daily Active rOPINIRole (REQUIP) 0.25 MG tablet Take 1 tablet by mouth nightly Active torsemide (DEMADEX) 20 MG tablet Take 1 tablet by mouth daily Active atorvastatin (LIPITOR) 20 MG tablet Take 1 tablet by mouth nightly Active aspirin 81 MG chewable tablet Take 1 tablet by mouth daily Active Active Problems Problem Noted Date Diagnosed Date Lumbar spondylosis 08/07/2023 Lumbar radiculitis 05/29/2023 Age-related osteoporosis wit h current pathol fracture of vertebra, initial encounter 05/09/2023 Age-related osteoporosis wit h current pathological fracture of vertebra 05/09/2023 Family History Medical History Relation Name Comments Diabetes Father Heart Disease Father Relation Name Status Comments Father Social History Tobacco Use Types Packs/Day Years Used Date Smoking Tobacco: Former Cigarettes Q uit: 1996 Smokeless Tobacco: Never Alcohol Use Standard Drinks/Week Comments Not Currently 0 (1 standard drink = 0.6 oz pur e alcohol) social Comments Unknown Sex and Gender Information Value Date Recorded Sex Assigned at Not on file Legal Sex Female 12:24 PM EDT Gender Identity Not on file Sexual Orientation Not on file Last Filed Vital Signs Vital Sign Reading Time Taken Comments Blood Pressure 94/64 08/07/2023 10:53 AM EST Pulse 109 08/07/2023 10:53 AM EST Temperature 36.6 C (97.8 F) 05/09/2023 7:01 AM EDT Respiratory Rate 18 08/07/2023 10:53 AM EST Oxygen Saturation 90% 08/07/2023 10:53 AM EST Inhaled Oxygen Concentration - - Weight 71.2 kg (157 lb) 05/09/2023 7:01 AM EDT Height 157.5 cm (5' 2 ) 05/09/2023 7:01 AM EDT Body Mass Index 28.72 05/09/2023 7:01 AM EDT Plan of Treatment Health Maintenance Due Date Last Done Comments Lipids 1949 Depression Screen 1951 DTaP/Tdap/Td vaccine (1 - Tdap) 1958 Respiratory Syncytial Virus (RSV) or age 60 yrs+ (1 - 1-dose 75+ series) 2014 Annual Wellness Visit (Medicare) 06/04/2023 COVID-19 Vaccine ( season) 2024 05/21/2023, 05/16/2021, 08/29/2020, Additional history exists Flu vaccine (Season Ended) 02/06/202505/13, 04/29/2021, 03/22/2020, Additional history exists Pneumococcal 50+ years Vaccine Completed 08/26/2016, 03/25/2015, 04/26/2010 DEXA (modify frequency per FRAX score) Completed 07/28/2021, 09/12/2017 Shingles vaccine Completed 06/06/2023, 11/2018, 03/20/2019, Additional history exists Hepatitis A vaccine Aged Out No longe r eligible based on patient's age to complete this topic Hepatitis B vaccine Aged Out No longe r eligible based on patient's age to complete this topic Hib vaccine Aged Out No longer eligi ble based on patient's age to complete this topic Meningococcal (ACWY) vaccine Aged Out No longer eligible based on patient's age to complete this topic Meningococcal B vaccine Aged Out No l onger eligible based on patient's age to complete this topic Polio vaccine Aged Out No longer elig ible based on patient's age to complete this topic Medical Devices Implanted Type [employer] Device Identifier Shelf Expiration Date Model / Serial / Lot [employer] Implanted:Qty: 1 on 05/09/2023 by Kd Macias MD at [facility] N/A: Vertebrae [employer]_CR 04/07/2025 / / [id number] Description:T12 Ref# [id number] Insurance MEDICARE Advance Directives * Full Code (Latest Code Status on File) Date Activated Date Inactivated Comments 08/07/2023 10:11 AM 08/07/2023 1:05 PM * Full Code Date Activated Date Inactivated Comments 05/29/2023 7:56 AM 05/29/2023 10:26 AM * Full Code Date Activated Date Inactivated Comments 05/09/2023 9:08 AM 05/09/2023 12:32 PM Care Teams Finished Cloth Examiner Relationship Specialty Start Date End Date Jasvir León MD [address] [facility] [address] [place] [address] PCP - General Internal Medicine 05/07/23
--- OUTSIDE RECORDS SUMMARY | 2024-11-29 13:05 | XMS_ITS | Patient Health Record ---
Author Organization [facility] [place] Address [address] [place] [address] Care Team Providers Care Telecommunications Facility Examiner Name Role Phone Mau MOULTON, Jasvir Primary Care Provider Roland Soto Unavailable [phone] Allergies Allergen (clinical drug ingredient) Drug/Non Drug Allergy documented on EMR Reaction Allergy Type Onset Date Status A-Cillin (penicillin) rash Drug Allergy Active Codeine Phosphate (codeine) stomach upset Drug Allergy Active Results Component Value Reference Range Notes XR acute abdomen series Reviewed date:08/17/2024 11:52:29 AM Interpretation: Performing Lab: Notes/Report: Source Facility: [place] [address] XRay Report Signed Patient: KATHY VILLEGAS MR#: [id number] : 1940 Acct:[id number] Age/Sex: 84 / F ADM Date: 08/14/24 Loc: [place] 218-[address]: Roberto Zimmerman M.D. Ordering Physician: Roberto Zimmerman M.D. Date of Service: 08/16/24 Procedure(s): XR acute abdomen series Accession Number(s): [id number] cc: JASVIR LUCIA ; Roberto Zimmerman M.D. [place] [address] Patient Name: KATHY VILLEGAS MRN: [id number] date: 1940 Sex: F Assigned Patient Location: MS Current Patient Location: [place] Accession/Order Number: [id number] Exam Date: 08/16/2024 15:20 Report Date: 08/16/2024 17:22 At the request of: ROBERTO ZIMMERMAN Procedure: XR acute abdomen series EXAM: ACUTE ABDOMINAL SERIES HISTORY: Emesis in a 84-year-old female TECHNIQUE: A single view of the chest and 3 views of the abdomen and pelvis are submitted for review. COMPARISON: None. FINDINGS: CHEST X-RAY: Cardiac monitoring device overlies the upper left abdomen. The lungs are hyperexpanded with airspace opacities demonstrated in bilateral lower lobes. There is no acute infiltrate. There is no evidence for effusion. The heart measures enlarged.. Pulmonary vascularity is prominent. Osseous structures demonstrate stable mediastinal wires which are aligned and intact. ABDOMEN: Non obstructive bowel gas pattern. Clips are seen in the right upper quadrant. Evaluation for free air limited due to supine imaging. There are no abnormal calcifications. However, evaluation of the renal shadows is limited due to overlying bowel gas. No portal venous air. Osseous structures demonstrate postoperative changes of the lumbar spine with vertebroplasty material. There are some well-corticated rib fractures demonstrated on the left which do not appear to be acute. XR/XR acute abdomen series IMPRESSION: CHEST X-RAY: Airspace opacities demonstrated bilaterally. Please correlate for pneumonia. However, other etiologies within the lungs not entirely excluded. CT scan of the chest would help better delineate. ABDOMEN: 1. Nonobstructive bowel gas pattern. 2. Mild retention of stool. Electronically authenticated by: JOCY LLOYD Date: 08/16/2024 17:22 Dictated By: Jocy Lloyd M.D. Signed By: 08/16/24 1725 DD/ 172 TD/TT: Field Map Editor: [place] [address] XRay Report Signed Patient: KATHY VILLEGAS MR#: [id number] : 1940 Acct:[id number] Age/Sex: 84 / F ADM Date: 08/14/24 Loc: MS 218-[address]: Mandie Zimmerman M.D. Ordering Physician: Roberto Zimmerman M.D. Date of Service: 08/16/24 Procedure(s): XR acu te abdomen series Accession Number(s): [id number] cc: JASVIR LUCIA ; Roberto Zimmerman M.D. [facility] [place] [id number] Patient Name: KATHY VILLEGAS MRN: [id number] date: 1940 Sex: F Assigned Patient Location: MS Current Patient Loca tion: MS Accession/Order Numb er: [id number] Exam Date: 08/16/2024 15:20 Report Date: 08/16/2024 17:22 At the request of: ROBERTO ZIMMERMAN Procedure: XR acute abdomen series EXAM: ACUTE ABDOMINA L SERIES HISTORY: Emesis in a 84-year- old female TECHNIQUE: A single view of the chest and 3 views of the abdomen and pelvis are submitted for review. COMPARISON: None. FINDINGS: CHEST X-RAY: Cardiac monitoring d evice overlies the upper left abdomen. The lungs are hyperexpanded with airspace opacities demonstrated in bilateral lower lobes. There is no acute infiltrate. There is no evidence for effusion. The heart measures enlarged.. Pulmonary vascularity is prominent. Osseous structures demonstrate stable mediastinal wires which are aligned and intact. ABDOMEN: Non obstructive sharri l gas pattern. Clips are seen in th e right upper quadrant. Evaluation for free air limited due to supine imaging. There are no abnorma l calcifications. However, evaluation of the renal shadows is limited due to overlying bowel gas. No portal venous air. Osseous structures demonstrate postoperative changes of the lumbar spine with vertebroplasty material. There are some well-corticated rib fractures demonstrated on the left which do not appear to be acute. X R/XR acute abdomen series IMPRESSION: CHEST X-RAY: Airspace opacities demonstrated bilaterally. Please correlate for pneumonia. However, other etiol ogies within the lungs not entirely excluded. CT scan of the chest would help better delineate. ABDOMEN: 1. Nonobstructive josemanuel wel gas pattern. 2. Mild retention of stool. Electronically authenticated by: JOCY LLOYD Date: 08/16/2024 17:22 Dictated By: Jocy Lloyd M.D. Signed By: 08/16/241724 DD/ 21 TD/TT: Field Map Editor: RT pulmonary function test Reviewed date:10/09/2024 04:43:38 PM Interpretation: Performing Lab: Notes/Report: Source Facility: [facility]-[address] [place] [address] [place] [address] Respiratory Report Signed Patient: KATHY VILLEGAS MR#: [id number] : 1940 Acct:[id number] Age/Sex: 84 / F ADM Date: 10/08/24 Loc: CARD Attending Dr: Roland Tan D.O. Ordering Physician: Roland Tan D.O. Date of Service: 10/08/24 Procedure(s): RT pulmonary function test Accession Number(s): [id number] cc: [facility] Test Date: 2024-10-08 Pat Name: KATHY VILLEGAS Department: Room: - Gender: Female Coating Manager: Jose De Jesus Tran RRT : 1940 Requested By: Roland Tan Order Number: [id number] Reading MD: Roland Tan Interpretive Statements Pulmonary [...] Signed By: 10/09/24 1633 DD/ 1323 TD/TT: Field Map Editor: [place] [address] Respiratory Report Signed Patient: KATHY VILLEGAS MR#: [id number] : 1940 Acct:[id number] Age/Sex: 84 / F ADM Date: 10/08/24 Loc: CARD Attending Dr: Roland Tan D.O. Ordering Physician: Roland Tan D.O. Date of Service: 10/08/24 Procedure(s): RT pulmonary function test Accession Number(s): [id number] cc: [facility] Test Date: 2024-10-08 Pat Name: KATHY Azul Department: 35 Room: - Gender: Female Coating Manager: Jose De Jesus Tran RRT : 1940 Requ ested By: Roland Tan Order Number: [id number] Reading MD: Roland Tan Interpretive Statements Pulmonary function testing was completed according to ATS criteria. Findings were considered accu rate and reproducible, with exception of DLCO which did not meet ATS standar ds. Both pre- and post-bronchodilator values utilized for spirometry. Spirometry (based on pre-bronchodilator values): -FEV1/FVC: Reduced @ 68% -FEV1: Low normal @ 82% -FVC: Normal @ 87% -There is no signifi cant bronchodilator response. Lung volumes by plethysmography: -RV: [...] decreased d/t not meeting ATS standards. Overall s tudy may represent COPD/emphysema +/- concomitant restriction-causing disorder such as ILD or cardiovascular pulmonary disease. Clinical correlation required. Electronically Sri d On 10-09-2024 16:33:43 EDT by Roland Tan Dictated By: Binta Tan D.O. Signed By: 10/09/24 1633 DD/ 1323 TD/TT: Field Map Editor: HEMOGLOBIN Reviewed date:10/08/2024 04:55:19 PM Interpretation: Performing Lab: Notes/Report: [facility] , Hemoglobin 10.6 12.0-16.0 g/dL Performing Lab: see note ML - [facility] BNP Reviewed date:08/17/2024 11:52:29 AM Interpretation: Performing Lab: Notes/Report: Comment am bloood? [facility] , NT Pro B Type Natriuretic Pept 49105.0 <=1800.0 pg/mL RESULTS CALLED TO Bev Nobles RN Performing Lab: see note ML - [facility] Reason For Referral No Information Medications Medication SIG (Take, Route, Frequency, Duration) Notes Start Date End Date Status buPROPion HCl ER (SR) 150 MG Take 1 tablet (150 mg) by mouth in the morning and 1 tablet (150 mg) before bedtime. Oral for 90 Days Active Lisinopril 20 MG 1 tablet Orally Once a day Active Atorvastatin Calcium 20 MG Oral for 90 Days Active Insulin Lispro Prot & Lispro (75-25) 100 UNIT/ML Inject TEN Units under the skin in the morning and TEN Units in the evening. Inject with meals. Subcutaneous for 75 Days Active amLODIPine Besylate 5 MG 1 tablet Orally Once a day for 30 day(s) 09/24/2024 Active Hyoscyamine Sulfate 0.125 MG DISSOLVE 2 (TWO) TABLET BY MOUTH EVERY 6 HOURS NEEDED FOR ABDOMINAL PAIN (MAX DAILY DOSE EIGHT TABLETS) Oral for 5 Days Active ALPRAZolam 0.25 MG Oral for 30 Days Active HYDROcodone-Acetaminophen 5-325 MG Oral for 10 Days Active Carvedilol 12.5 MG Oral for 90 Days Active Colchicine 0.6 MG TAKE 1 TABLET BY TEODORO TH DAILY Oral for 30 Days Active rOPINIRole HCl 0.25 MG TAKE 1 TABLET BY MOUTH 1-3 hours before bedtime Oral for 90 Days Active Clotrimazole 10 MG 1 erinn while on immunosuppressive medicine Mouth/Throat Three times a day Active Ondansetron HCl 4 MG TAKE 1 TABLET BY MO UT EVERY 8 HOURS NEEDED FOR NAUSEA and FOR VOMITING Oral for 7 Days Active Omeprazole 40 MG TAKE 1 CAPSULE BY MO UTH DAILY Oral for 90 Days Active Gabapentin 100 MG TAKE 1 CAPSULE BY MO UTH THREE TIMES DAILY (IN THE MORNING, IN THE EVENING and AT BEDTIME) Oral for 90 Days Active Farxiga 10 MG 1 tablet Orally Once a day Active Torsemide 20 MG Oral for 90 Days Active Breztri Aerosphere 160-9-4.8 MCG/ACT 2 puffs Inhalation Twice a day for 30 days Rinse after use 11/05/2024 Active Escitalopram Oxalate 10 MG TAKE 1 TABLET BY MOUTH DAILY Oral for 90 Days Active Digoxin 125 MCG 1 tablet Orally Active Spironolactone 25 MG Oral for 90 Days Active Immunizations Vaccine Route Administration Date Status [facility] -Filled 30 mcg/0.3 mL Unknown 05/21/2023 Administered Flu, Fluad (89704) 65 yrs + Trivalent (0980-1029) Unknown 04/12/2024 Administered Pneumococcal (Pneumovax 23) Unknown 04/12/2024 Administ ered ZOSTER (SHINGLES) VACCINE (HZV) Unknown 09/11/2023 Admi nistered Social History Tobacco Use: Social History Observation [...] W/U Status Risk Notes Problem Centrilobular emphysema (90558498) Centrilobular emphysema (J43.2) Active confirmed Problem 63985081 Emphysema, unspecified (J43.9) Active confirmed Problem Chronic respiratory failure (87875463) Chronic respiratory failure with hypoxia (J96.11) Active confirmed Problem ZIA (obstructive sleep apnea) (G47.33) Active confirmed Problem Lung mass (860672610) Lung mass (R91.8) Active confirmed Problem Hilar lymphadenopathy (27502419) Hilar lymphadenopathy (R59.0) Active confirmed Problem Ex-tobacco user (finding) (319387301) History of tobacco abuse (Z87.891) Active confirmed Problem Secondary pulmonary hypertension (71167311) Other secondary pulmonary hypertension (I27.29) Active confirmed Problem Chronic kidney disease stage 3A (disorder) (712579734) Chronic kidney disease, stage 3a (N18.31) Active confirmed Vital Signs Heart Rate 72 /min 11/05/2024 2L O2 Activity/ Resting Temperature 97.0 degrees Fahrenheit 11/05/2024 2L O 2 Activity/Resting Respiratory Rate 18 /min 11/05/2024 2L O2 Activ ity/Resting Oximetry 93 % 11/05/2024 2L O2 Activity/ Resting Blood pressure diastolic 69 mm Hg 11/05/2024 2L O2 Activity/Resting Height 62 in 11/05/2024 2L O2 Activity/ Resting Blood pressure systolic 117 mm Hg 11/05/2024 2L O 2 Activity/Resting Weight 135.4 lbs 11/05/2024 2L O2 Activity/ Resting BMI 24.76 kg/m2 11/05/2024 2L O2 Activity/ Resting Procedures Procedure Date Ordered Date Performed Result Body Sit e Inhaler Teaching/Aerosol-performed 09/24/2024 09/24/2024 N /A PFT (17545, 63912, 69455) 09/24/2024 10/08/2024 N/A Encounters Encounter Location Date Provider Diagnosis Pulmonary [facility] [address] [place] [address] 08/11/2024 [facility] [address] [place] [address] 08/18/2024 [facility] [address] [place] [address] 08/25/2024 [facility] [address] [place] [address] 09/24/2024 [facility] Centrilobular emphys moon J43.2 ; Lung mass R91.8 ; Hilar lymphadenopathy R59.0 ; Chronic respiratory failure with hypoxia J96.11 ; Chronic kidney disease, stage 3a N18.31 ; Other secondary pulmonary hypertension I27.29 and History of tobacco abuse Z87.891 [facility] [address] [place] [address] 11/05/2024 [facility] Centrilobular emphys moon J43.2 ; Lung mass [...] her F/U visit the end of October. 11/05/2024 Centrilobular emphysema (ICD-10 - J43.2) Emphysematous [...] to be done - she voiced understanding. 09/24/2024 Hilar lymphadenopathy (ICD-10 - R59.0) As above, noted on chest CT 04/25/2024. Requires IVP dye to evaluate, need to check renal function prior to study. 09/24/2024 Chronic respiratory failure with hypoxia (ICD-10 - J96.11) Patient is on chronic O2 therapy associated with multiple cardiac conditions. 11/05/2024 Hilar lymphadenopathy (ICD-10 - R59.0) Cancelling CT chest. 11/05/2024 Chronic respiratory failure with hypoxia (ICD-10 - J96.11) Continue O2. 09/24/2024 Chronic kidney disease, stage 3a (ICD-10 - N18.31) Secondary to underlying DM2. At risk of renal failure with IVP dye. Check creatinine prior to chest CT with contrast. 09/24/2024 Other secondary pulmonary hypertension (ICD-10 - I27.29) Left & right heart cathteterization 05/27/2024: -PA 56/30 (41) -PCWP 20 Most consistent with group 2 (cardiac). Treatment is treating the underlying disease. 11/05/2024 Chronic kidney disease, stage 3a (ICD-10 - N18.31) Secondary to underlying DM2. 11/05/2024 Other secondary pulmonary hypertension (ICD-10 - I27.29) Left & right heart cathteterization 05/27/2024: -PA 56/30 (41) -PCWP 20 Most consistent with group 2 (cardiac). Treatment is treating the underlying disease. 09/24/2024 History of tobacco abuse (ICD-10 - Z87.891) Does not meet current LDCT screening criteria. 11/05/2024 History of tobacco abuse (ICD-10 - Z87.891) Does not meet current LDCT screening criteria. 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 HLD (hyperlipidemia) E78.5 Permanent atrial fibrillation I48.21 Hypothyroidism E03.9 Allergic rhinitis J30.9 Chronic respiratory failure with hypoxia J96.11 Diverticulosis K57.90 ZIA (obstructive sleep apnea) G47.33 OA (osteoarthritis) M19.90 HTN (hypertension) I10 PVD (peripheral vascular disease) I73.9 Aortic stenosis I35.0 Mitral valve stenosis I05.0 Other secondary pulmonary hypertension I 27.29 RLS (restless legs syndrome) G25.81 Chronic kidney disease, stage 3a N18.31 DM2 (diabetes mellitus, type 2) E11.9 GERD (gastroesophageal reflux disease) K 21.9 Neurogenic claudication M48.062 History of tobacco abuse Z87.891 History of COVID-19 Z86.16 History of non-ST elevation myocardial i nfarction (NSTEMI) I25.2 Surgical History Surgery Date(Month/Year) cholecystectomy hysterectomy left knee arthroscopy 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
[2024-11-29 13:10] LABS: Glucometer 69 mg/dL (74-106)
[2024-11-29] MEDS: DEXTROSE 50 %-WATER 25 GM/50 ML SYRINGE IV (13:21)
[2024-11-29 13:39] LABS: Bilirubin Urine NEGATIVE (NEGATIVE); Blood Urine NEGATIVE (NEGATIVE); Clarity Urine CLEAR (CLEAR); Color Urine LT. YELLOW (YELLOW); Glucose Urine UA NEGATIVE (NEGATIVE); Ketones Urine NEGATIVE (NEGATIVE); Leukocyte Esterase Urine NEGATIVE (NEGATIVE); Nitrite Urine NEGATIVE (NEGATIVE); Protein Urine NEGATIVE (NEG/TRACE); Urobilinogen Urine 0.2 EU/dL (0.2-1.0)
[2024-11-29 13:40] LABS: Basophils Absolute Auto 0.1 10^3/uL (0.0-0.1); Basophils Percent Auto 0.6 % (0.2-2.0); Eosinophils Absolute Auto 0.2 10^3/uL (0.0-0.7); Eosinophils Percent Auto 1.7 % (0.9-7.0); Hematocrit 28.9 % (36.0-48.0); Hemoglobin 8.6 g/dL (12.0-16.0); Immature Granulocytes Abs Auto 0.03 10^3/uL (0.00-0.03); Immature Granulocytes Pct Auto 0.3 % (0.0-0.5); Lymphocytes Percent Auto 9.6 % (20.5-60.0); Mean Corpuscular HGB Conc 29.8 g/dL (29.9-35.2); Mean Corpuscular Hemoglobin 26.5 pg (26.7-34.0); Mean Corpuscular Volume 89.2 fL (81.0-99.0); Mean Platelet Volume 10.5 fL (9.5-13.5); Monocytes Absolute Auto 1.4 10^3/uL (0.3-0.8); Monocytes Percent Auto 14.2 % (1.7-12.0); Neutrophils Absolute Auto 7.3 10^3/uL (1.4-6.5); Neutrophils Percent Auto 73.6 % (43.0-75.0); Platelet Count 170 10^3/uL (150-450); Red Blood Count 3.24 10^6/uL (4.20-5.40); Red Cell Distribution Width 17.1 % (11.0-15.0)
[2024-11-29 13:49] LABS: Anion Gap 8.3; BUN Creatinine Ratio 29.3; Calcium 8.7 mg/dL (8.5-10.1); Carbon Dioxide 33.3 mmol/L (21.0-32.0); Chloride 103 mmol/L (98-107); Estimated GFR (African America 36 (>=60 mL/min/1.73m^2); Estimated GFR (Non-African Ame 30 (>=60 mL/min/1.73m^2); Glucose 67 mg/dL (74-106); Potassium 3.6 mmol/L (3.5-5.1); Sodium 141 mmol/L (136-145)
[2024-11-29 13:52] LABS: Bacteria Urine NONE SEEN #/HPF (NONE SEEN); Cast Seen? NONE SEEN #/LPF (NONE SEEN); Crystals Seen? None Seen #/HPF (None Seen); Mucus Urine NONE SEEN (NONE SEEN); RBC Urine 0-2 #/HPF (0-2); Squamous Epithelial Cell Urine RARE #/LPF (NONE/RARE); WBC Urine 0-2 #/HPF (NONE SEEN)
[2024-11-29 14:05] LABS: Troponin I High Sensitivity 55.9 pg/mL (4.0-51.3)
[2024-11-29 14:06] LABS: Digoxin 2.2 ng/mL (0.9-2.0)
[2024-11-29 14:10] LABS: Glucometer 209 mg/dL (74-106)
[2024-11-29 14:53] LABS: Troponin I High Sensitivity 55.2 pg/mL (4.0-51.3)
== END 2024-11-29 18:57 | disposition home or self-care (01) ==
PROVIDERS: Emergency Provider Emergency Medicine; PCP Internal Medicine
DX: E16.2 Hypoglycemia, unspecified (principal); I51.7 Cardiomegaly; J90 Pleural effusion, not elsewhere classified; R53.1 Weakness; W07.XXXA Fall from chair, initial encounter; E11.65 Type 2 diabetes mellitus with hyperglycemia; Z79.85 Long-term (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 of injectable non-insulin antidiabetic drugs; I48.91 Unspecified atrial fibrillation
CPT/HCPCS: 36415; 71045; 80048; 80162; 81001; 82948; 84484; 85025; 87040; 93005; 96374; 99285